=== PATIENT | male | born 1975 | race Caucasian/White ===

== ENCOUNTER 2017-10-10 14:55 | Inpatient (IN) | payer OTHER, SELFPAY ==
[2017-10-10] VITALS (20 sets, daily range): BP systolic 137–161; BP diastolic 88–100; PULSE 93–108; RESP 12–33; TEMP 37.8–39.6; O2SAT 87–95; BMI 39.0; BMI 37.3; BMI 37.4
--- NOTE | 2017-10-10 15:08 | RAD_ITS ---
STUDY: X-RAY CHEST REASON FOR EXAM: Male, 41 years old. Tachypnea TECHNIQUE: Single AP portable view of the chest. COMPARISON: None. FINDINGS: There is poor inspiratory effort with vascular crowding. The lungs are clear and expanded. There is no demonstrated pleural abnormality. There is borderline cardiomegaly. Normal mediastinum and ela. Normal visualized pulmonary arteries. Normal visualized aortic arch and descending thoracic aorta. Normal visualized thoracic spine. Normal visualized ribs, clavicles, and shoulders. There is no demonstrated abnormality of the visualized soft tissue structures of the upper abdomen. RAD/Chest 1 View (Portable) IMPRESSION: Normal x-ray examination of the chest. Electronically Signed: Jaime Amaya MD at 16:45 EST , Service support ,
--- NOTE | 2017-10-10 15:08 | EKG12_ITS ---
Test Reason : CP Blood Pressure : / mmHG Vent. Rate : 114 BPM Atrial Rate : 114 BPM P-R Int : 176 ms QRS Dur : 104 ms QT Int : 338 ms P-R-T Axes : 035 -13 044 degrees QTc Int : 465 ms Sinus tachycardia Otherwise normal ECG Confirmed by LEEANNE SINGH ([id number]), newspaper copy editor CHEIKH BUSTILLO ([id number]) on 10/12/2017 2:05:13 PM Referred By: FAREED Confirmed By:LEEANNE SINGH
[2017-10-10] MEDS: Acetaminophen 325 MG Tablet 650 MG PO ×2 (15:15→22:17)
[2017-10-10] MEDS: 0.9% Normal Saline 1,000 ML 250 ML IV (15:16)
[2017-10-10 15:22] LABS: Absolute Lymphocyte Count 0.78 X10^3/ul (0.83-4.51); Basophil# 0.02 X10^3/uL; Basophil% 0.2 % (0-1); Hematocrit 41.6 % (40-54); Hemoglobin 14.2 g/dl (13.0-16.5); Lymphocyte # 0.78 X10^3/ul (4.0); Lymphocyte % 7.6 % (19-41); Mean Corp Hgb Conc 34.1 g/gl (32-36); Mean Corpuscular Hgb 31.2 pg (27.0-32.0); Mean Corpuscular Volume 91.4 fL (80-94); Mean Platelet Vol. 11.9 fl (6.2-12.0); Monocyte# 0.47 X10^3/uL; Monocyte% 4.6 % (0-10); Neutrophil # 8.95 X10^3/uL (2.7-7.7); Neutrophil % 87.5 % (47-70); Platelet Count 197 K/mm3 (150-450); RBC Distribution Width CV 12.5 % (11.6-14.6); RBC Distribution Width SD 41.8 fl (35.1-43.9); Red Blood Count 4.55 M/mm3 (4.6-6.2); White Blood Count 10.2 K/mm3 (4.4-11.0)
--- NOTE | 2017-10-10 15:22 | ED.RN ---
NO OLD EKG
--- NOTE | 2017-10-10 15:25 | ED.VISSUMM ---
- ER Visit Summary Date of Service: 10/10/17 Chief Complaint: From Dr. Humberto Dos Santos's office because of tachycardia, tachypnea, fever and pulse ox 86% History of Present Illness: The patient is a 41 M who was seen yesterday at [facility] and diagnosed with left lower lobe pneumonia. He was given a dose of an IV antibiotic and placed on doxycycline. He reports he feels ill, weak, fatigued and not breathing well. He does complain of global headache. He denies photophobia sips of his neck. Denies earache, rhinorrhea, postnasal drainage or sore throat. Does complain of dry mouth. Does complain of thirst, orthostatic symptoms and decreased urine output with darker colored urine. He denies history of biliary disease or exposure to hepatitis. He reports left-sided chest pain with coughing and reports his cough is nonproductive. He has no history of PE or DVT. He denies any leg pain, swelling or discoloration. He does report nausea without vomiting or diarrhea. He denies rash. He denies any paresthesia, anesthesia or motor weakness. Her review of records he has a history of GERD, hiatal hernia, migraine headaches, depression, sleep apnea and allergic rhinitis. Past surgical history is remarkable for appendectomy and tonsillectomy. He did have a colonoscopy and revealed diverticulosis. Physical Examination: Patient's vitals remarkable for heart rate of 106, respiratory rates documented 24 however on my exam he is breathing 36 times a minute and has paradoxical breathing. Pulse ox is 90% on 6 L by nasal cannula and temperature is 102.7. He appears ill and pale. Capillary refill is delayed. HEENT exam is remarkable for dry mucosa. Heart is rapid and regular without murmur, gallop or rub. Breath sounds are diminished bilaterally with egophony noted left side. Abdomen is soft nontender. There is no CVA tenderness noted. He does have palpable distal pulses upper and lower extremity. He is not alert, but he is oriented. Motor sensory are intact. Cranial 2 through 12 are intact. Test Results: EKG reveals a sinus tachycardia rate of 114, otherwise normal. Portable chest x-ray reveals a left lower lobe infiltrate with a small effusion. White count is normal at 10.2 with 88% segs. Coags are normal. UA is unremarkable. Lactate is normal at 1.3. Blood gas on 6 L by nasal cannula reveals a pH of 7.46, P CO2 28, PaO2 58 bicarb 19.6 with a base excess of -4. This represents a metabolic acidosis with a respiratory compensation and an increased AA gradient. Emergency Department Course and Treatment: Abscess workup was undertaken. A blood gas was obtained because of concern for CO2 retention since he has a history obstructive sleep apnea. He was placed on BiPAP since he has paradoxical breathing and reports feeling fatigued and having difficulty breathing. Antibiotics were ordered and specifically Rocephin and azithromycin. Rapid influenza screen was obtained as well. Treatment Plan: Patient was treated with antibiotics. Because he had paradoxical breathing and complained of fatigue BiPAP was started. He from a respiratory standpoint has improved. Disposition: The hospitalist has been paged for admission to ICU Impression: 1. Community-acquired pneumonia, left lower lobe 2. Respiratory failure with hypoxia 3. Metabolic acidosis 4. Severe sepsis 5. History of obstructive sleep apnea 6. History of GERD/hiatal hernia 7. History of allergic rhinitis 8. Sinus tachycardia documented on monitor and EKG 9. Critical care time 34 minutes This note was generated with [employer] dictation software. It may contain incorrect words, spelling, and punctuation that were not noted in review of the chart prior to signing ED Disposition - Plan for ED Patient: Chief Complaint: Chest Pain Referrals: Humberto Dos Santos MD [Primary Care Provider] -
[2017-10-10 15:26] LABS: POSITIVE COUNT NO; POSITIVE DIFFERENTIAL NO; POSITIVE MORPHOLOGY NO
--- NOTE | 2017-10-10 15:29 | ED.DCSUM_ITS ---
- ER Visit Summary Date of Service: 10/10/17 Chief Complaint: From Dr. Humberto Dos Santos's office because of tachycardia, tachypnea, fever and pulse ox 86% History of Present Illness: The patient is a 41 M who was seen yesterday at [facility] and diagnosed with left lower lobe pneumonia. He was given a dose of an IV antibiotic and placed on doxycycline. He reports he feels ill, weak, fatigued and not breathing well. He does complain of global headache. He denies photophobia sips of his neck. Denies earache, rhinorrhea, postnasal drainage or sore throat. Does complain of dry mouth. Does complain of thirst, orthostatic symptoms and decreased urine output with darker colored urine. He denies history of biliary disease or exposure to hepatitis. He reports left- sided chest pain with coughing and reports his cough is nonproductive. He has no history of PE or DVT. He denies any leg pain, swelling or discoloration. He does report nausea without vomiting or diarrhea. He denies rash. He denies any paresthesia, anesthesia or motor weakness. Her review of records he has a history of GERD, hiatal hernia, migraine headaches, depression, sleep apnea and allergic rhinitis. Past surgical history is remarkable for appendectomy and tonsillectomy. He did have a colonoscopy and revealed diverticulosis. Physical Examination: Patient's vitals remarkable for heart rate of 106, respiratory rates documented 24 however on my exam he is breathing 36 times a minute and has paradoxical breathing. Pulse ox is 90% on 6 L by nasal cannula and temperature is 102.7. He appears ill and pale. Capillary refill is delayed. HEENT exam is remarkable for dry mucosa. Heart is rapid and regular without murmur, gallop or rub. Breath sounds are diminished bilaterally with egophony noted left side. Abdomen is soft nontender. There is no CVA tenderness noted. He does have palpable distal pulses upper and lower extremity. He is not alert, but he is oriented. Motor sensory are intact. Cranial 2 through 12 are intact. Test Results: EKG reveals a sinus tachycardia rate of 114, otherwise normal. Portable chest x-ray reveals a left lower lobe infiltrate with a small effusion. White count is normal at 10.2 with 88% segs. Coags are normal. UA is unremarkable. Lactate is normal at 1.3. Blood gas on 6 L by nasal cannula reveals a pH of 7.46, P CO2 28, PaO2 58 bicarb 19.6 with a base excess of -4. This represents a metabolic acidosis with a respiratory compensation and an increased AA gradient. Emergency Department Course and Treatment: Abscess workup was undertaken. A blood gas was obtained because of concern for CO2 retention since he has a history obstructive sleep apnea. He was placed on BiPAP since he has paradoxical breathing and reports feeling fatigued and having difficulty breathing. Antibiotics were ordered and specifically Rocephin and azithromycin. Rapid influenza screen was obtained as well. Treatment Plan: Patient was treated with antibiotics. Because he had paradoxical breathing and complained of fatigue BiPAP was started. He from a respiratory standpoint has improved. Disposition: The hospitalist has been paged for admission to ICU Impression: 1. Community-acquired pneumonia, left lower lobe 2. Respiratory failure with hypoxia 3. Metabolic acidosis 4. Severe sepsis 5. History of obstructive sleep apnea 6. History of GERD/hiatal hernia 7. History of allergic rhinitis 8. Sinus tachycardia documented on monitor and EKG 9. Critical care time 34 minutes This note was generated with [employer] dictation software. It may contain incorrect words, spelling, and punctuation that were not noted in review of the chart prior to signing ED Disposition - Plan for ED Patient: Chief Complaint: Chest Pain Referrals: Humberto Dos Santos MD [Primary Care Provider] -
[2017-10-10 15:33] LABS: Lactic Acid 1.3 mmol/L (0.4-2.0)
[2017-10-10 15:36] LABS: Allen Test POS; Base Excess -4 mmol/L (-2 to +2); Bicarbonate 19.6 mmol/L (22-26); Blood Gas Specimen Type ART; O2 Delivery Device Nasal Can; PO2 58 mmHG (75-100); SITE R Radial; SO2 91 % (95-99); Time Given 1520; Total Carbon Dioxide 20 mmol/L; pCO2 28.1 mmHg (35-45); pH 7.45 (7.35-7.45)
[2017-10-10 15:39] LABS: AST(SGOT) 37 U/L (15-37); Alanine Aminotransfer ALT/SGPT 30 U/L (12-78); Albumin, Serum 3.7 g/dL (3.4-5.0); Alkaline Phosphatase 96 U/L (45-117); Anion Gap 10 (5-15); BUN 12 mg/dL (7-18); Calcium,Total 8.7 mg/dL (8.5-10.1); Chloride 103 mmol/L (98-107); EST Glomerular Filtration Rate 87 mL/min (>60); Est Glom Filt Rate - Afr Amer 105 mL/min (>60); Estimated Creatinine Clearance 111.88 ml/min; Globulin 3.7 g/dL (2.2-4.2); Glucose 152 mg/dL (70-110); Potassium 3.9 mmol/L (3.5-5.1); Protein, Total 7.4 g/dL (6.4-8.2); Sodium Level 135 mmol/L (136-145)
[2017-10-10 15:53] LABS: Bacteria 0 SEEN /hpf (None Seen); Mucous, Urine 0 SEEN /hpf (<or=2+); Squamous Epithelial Cells - UA 0 SEEN /hpf (0-5); White Blood Cells 0 SEEN /hpf (0-5)
[2017-10-10 16:04] LABS: Color, Urine Yellow (Yellow); Glucose, Dipstick Normal (Normal); Ketone-Dipstick Negative (Negative); Leukocyte Esterase-Dipstick 25 /ul (Negative); Nitrite-Dipstick Negative (Negative); Occult Blood-Urine 10 /ul (Negative); Protein-Dipstick 30 mg/dl (Negative); Urine Bilirubin Dipstick Negative (Negative); Urine Clarity Clear (Clear); Urine Urobilinogen 1 mg/dl (Normal)
[2017-10-10 16:22] LABS: International Normalized Ratio 1.2; Prothrombin Time (Protime)PT. 14.5 SECONDS (11.7-14.9)
[2017-10-10 16:23] LABS: Red Blood Cells-Urine 0-5 SEEN /hpf (0-5)
--- NOTE | 2017-10-10 17:27 | HP.PCM_ITS ---
Problem List (1) MIKE (obstructive sleep apnea) Status: Chronic Comment: Recent sleep study, new CPAP machine on order. (2) HLD (hyperlipidemia) Status: Chronic Qualifiers: Hyperlipidemia type: unspecified Qualified Code(s): E78.5 - Hyperlipidemia , unspecified (3) Obesity (BMI 30-39.9) Status: Chronic (4) Diabetes mellitus, type II Status: Chronic Qualifiers: Diabetes mellitus complication status: without complication Diabetes mellitus long term care administrator insulin use: without long term care administrator use Qualified Code(s): E11.9 - Type 2 diabetes mellitus without complications (5) Anxiety and depression Status: Chronic History of Present Illness Date of Admission: 10/10/17 Chief Complaint: Dyspnea, cough, fever, chills The patient is a 41 y/o M w/ PMHx: MIKE, HLD, Obesity, Diabetes mellitus type II , Anxiety and Depression who presents to the [facility] ED on 10/10/17 w/ history of ongoing dyspnea, not markedly productive cough, fever, chills, arthralgias and myalgias w/ nausea without emesis x 3 days. He was evaluated the evening prior in [place] as his symptoms worsened and from patient/family report was treated for PNA, administered IV abx there and discharged to home on oral doxycycline w / 1 dose taken on 10/10/17 AM and noted to have oxygenation status 89% on RA but notes this was only tested at rest. He now re-presents to the [facility] ED as he has continued to worsen and become more short of breath with accessory muscle usage , increased RR. In the ED work-up included T 103.2, HR 90s, BP 151/94-->137/94, RR 20-30s, 94% on BIPAP which was initiated upon ED presentation given severity of appearance/acute respiratory failure, CBC w/ WBC 10.2, Hgb 14.2, Plts 197 with L shift, coags not marked, ABG w/ Bicarb 19.6, O2 saturation 91, pCO2 28.1 , pO2 58, 6L NC, CMP Na 135, Glucose 152, UA not marked aside evidence dehydration, CXR without marked findings, examination in the ED with concern for LLL influenza. In the ED patient administered rocephin, azithromycin, tylenol, NS. Dr. Lenz, ICU physician contacted regarding patient admission to the ICU. Past Medical History Past Medical History (Chronic Problems): Chronic Problems MIKE (obstructive sleep apnea) (Chronic) Recent sleep study, new CPAP machine on order. HLD (hyperlipidemia) (Chronic) Obesity (BMI 30-39.9) (Chronic) Diabetes mellitus, type II (Chronic) Anxiety and depression (Chronic) Allergies metoclopramide [From Reglan] Allergy (Verified 10/10/17 15:01) Unknown sertraline [From Zoloft] Allergy (Verified 10/10/17 15:01) Unknown topiramate [From Topamax] Allergy (Verified 10/10/17 15:01) Unknown Home Medications: Ambulatory Orders Medication Instructions Recorded Esomeprazole Mag Trihydrate 40 mg PO DAILY 10/10/17 [Nexium] Fenofibrate [Lipofen] 54 mg PO DAILY 10/10/17 Fluoxetine [Prozac] 10 mg PO DAILY 10/10/17 Fluticasone 0.05% [Flonase Nasal 1 spray NARES DAILY 10/10/17 [place]] Metformin HCl [Glucophage] 500 mg PO DAILY 10/10/17 Multivitamin [Multiple Vitamins] 1 each PO DAILY 10/10/17 Surgical History: appendectomy, tonsillectomy Psychiatric History: Anxiety, Depression Lives: Spouse/ Significant Other Smoking Status: Never smoker Tobacco Use: Non-smoker Alcohol: None Drugs: None - *Family History Maternal History Items: - - Maternal family history of heart disease, coronary disease with earliest heart attack at age 50. Paternal History Items: - - Father with history of colon cancer as well as heart disease with history of VT. Review of Systems Constitutional: Reports: Anorexia, Chills, Fever, Malaise, Weakness, Fatigue. Denies: Weight Change HEENT: Denies: Head Aches, Sinus Congestion, Sinus Drainage Cardiovascular: Denies: Chest Pain, Palpitations Respiratory: Reports: Cough, Shortness of Breath, Shortness of breath at rest, Shortness of breath upon exertion, Sputum production Gastrointestinal: Reports: Nausea. Denies: Abdominal Pain, Vomiting Genitourinary: Denies: Dysuria Musculoskeletal: Reports: Joint Pain, Muscle pain. Denies: Joint Tenderness Skin: Denies: Rash, Wounds Neurological: Denies: Numbness, Tingling, Focal weakness Psychiatric: Reports: Anxiety, Depression. Denies: Homicidal Ideations, Suicidal Ideations Hematologic/ Lymphatic: Denies: Easy Bruising, Easy Bleeding VTE Information - Inpt Only VTE Present on Admission: No VTE Mechan Device Prophylaxis: SCD's VTE Pharm Prophylaxis ordered?: Yes Subjective: Seated upright in the ED bed, BiPAP in place, notes feeling improved since initial ED presentation but still increased RR, accessory muscle usage. Objective: Physical Examination: General: awake, alert, oriented x 3 and cooperative, seated upright in the ED bed, BIPAP in place, still some lesser muscle usage, increased respiratory rate , evident respiratory distress. Skin: normal color, turgor, no icterus, cyanosis. HEENT: AT/NC, EOMI, PERRLA, dry MM, no carotid bruits or JVD noted. Lungs: Diminished breath sounds, greater BL bases, L>R, coarse, > L base, increased RR, accessory muscle usage, BIPAP in place. Heart: Mildly tachycardic with regular rhythm; no gallop, rub audible. Abdomen: soft, obese, NTTP, ND, normal BS, no HSM; however, habitus makes examination difficult. Extremities: no cyanosis, clubbing, or edema. Neurological: patient awake, alert, oriented x 3; cognitive function intact; pupils equally reactive to light and accomodation; cranial nerves II-XII grossly normal, moving all 4 extremities, no focal deficits, strength severely globally decreased given acute presentation. Psychiatric: affect appears flat, fatigued, no acute evidence of depressive or anxiety feelings. - Physical Exam Vital Signs Temp Pulse Resp BP Pulse Ox 102 F H 93 29 H 137/94 H 94 10/10/17 16:34 10/10/17 17:18 10/10/17 17:18 10/10/17 17:18 10/10/17 17:18 Oxygen Flow Rate 6 Oxygen Delivery Method Bi-pap Weight: 304 lb 0.279 oz Body Mass Index (BMI) 39.0 Microbiology Past 72 Hours 10/10/17 15:26 Influenza Types A,B Direct FA (YASMINE) - Final Mucosa - Nose Laboratory Tests Past 24 Hrs 10/10/17 10/10/17 10/10/17 14:56 14:56 14:56 WBC 10.2 RBC 4.55 L Hgb 14.2 Hct 41.6 MCV 91.4 MCH 31.2 MCHC 34.1 RDW 12.5 RDW Differential 41.8 Plt Count 197 MPV 11.9 Immature Gran % (Auto) 0.100 Neut % (Auto) 87.5 H Lymph % (Auto) 7.6 L [place] % (Auto) 4.6 Eos % (Auto) 0.0 Baso % (Auto) 0.2 Absolute Neuts (auto) 9.0 H Absolute Lymphs (auto) 0.78 L Total Counted Not Reportable PT 14.5 INR 1.2 APTT 39.0 H Specimen Type Sample Site pH Bicarbonate Actual POC Total CO2 Base Excess O2 Saturation ABG pCO2 ABG pO2 Trell Test O2 Delivery Device Liter Flow Blood Gas Notified Whom Blood Gas Notified Time Sodium 135 L Potassium 3.9 Chloride 103 Carbon Dioxide 22.0 Anion Gap 10 BUN 12 Creatinine 1.00 Estim Creat Clear Calc 111.88 Est GFR (MDRD) Af Amer 105 Est GFR (MDRD) Non-Af 87 BUN/Creatinine Ratio 12.0 Glucose 152 H Lactic Acid Calcium 8.7 Total Bilirubin 0.60 AST 37 ALT 30 Alkaline Phosphatase 96 Total Protein 7.4 Albumin 3.7 Globulin 3.7 Albumin/Globulin Ratio 1.0 Urine Color Urine Clarity Urine pH Ur Specific [place] Urine Protein Urine Glucose (UA) Urine Ketones Urine Occult Blood Urine Nitrite Urine Bilirubin Urine Urobilinogen Ur Leukocyte Esterase Urine RBC Urine WBC Ur Squamous Epith Cells Urine Bacteria Urine Mucus 10/10/17 10/10/17 10/10/17 14:56 15:29 15:45 WBC RBC Hgb Hct MCV MCH MCHC RDW RDW Differential Plt Count MPV Immature Gran % (Auto) Neut % (Auto) Lymph % (Auto) [place] % (Auto) Eos % (Auto) Baso % (Auto) Absolute Neuts (auto) Absolute Lymphs (auto) Total Counted PT INR APTT Specimen Type ART Sample Site R Radial pH 7.45 Bicarbonate Actual 19.6 L POC Total CO2 20 Base Excess -4 L O2 Saturation 91 L ABG pCO2 28.1 L ABG pO2 58 L Trell Test POS O2 Delivery Device Nasal Can Liter Flow 6.0 Blood Gas Notified Whom ED Blood Gas Notified Time 1520 Sodium Potassium Chloride Carbon Dioxide Anion Gap BUN Creatinine Estim Creat Clear Calc Est GFR (MDRD) Af Amer Est GFR (MDRD) Non-Af BUN/Creatinine Ratio Glucose Lactic Acid 1.3 Calcium Total Bilirubin AST ALT Alkaline Phosphatase Total Protein Albumin Globulin Albumin/Globulin Ratio Urine Color Yellow Urine Clarity Clear Urine pH 6.0 Ur Specific [place] 1.020 Urine Protein 30 H Urine Glucose (UA) Normal Urine Ketones Negative Urine Occult Blood 10 H Urine Nitrite Negative Urine Bilirubin Negative Urine Urobilinogen 1 H Ur Leukocyte Esterase 25 H Urine RBC 0-5 SEEN Urine WBC 0 SEEN Ur Squamous Epith Cells 0 SEEN Urine Bacteria 0 SEEN Urine Mucus 0 SEEN Assessment/Plan The patient is a 41 y/o M w/ PMHx: MIKE, HLD, Obesity, Diabetes mellitus type II , Anxiety and Depression who presents to the [facility] ED on 10/10/17 w/ history of ongoing dyspnea, not markedly productive cough, fever, chills, arthralgias and myalgias w/ nausea without emesis x 3 days. (1) Acute Hypoxic Respiratory Failure secondary to Suspected LLL PNA and Suspected Acute Viral Syndrome: ED evaluation w/ CXR without marked process, but examination concerning LLL PNA, influenza rapid panel negative but concern given presentation for influenza. Will maintain on BIPAP given severity of distress, increased effort which has been helping, transition once able to oxygen supplementation with wean as tolerated to room air, continue ATC duonebs , PRN albuterol, maintained on IV Rocephin and Azithromycin, Tamiflu, HOB, IS parameters w/ pending sputum cultures and urine antigens. Bld cx x 2 obtained in the ED. Will obtain Respiratory Viral Panel given concern for fall negative on the rapid influenza. (2) Diabetes mellitus type II: Hold oral home regimen, ADA diet, accu checks w/ ISS. (3) Morbid Obesity: Weight loss and lifestyle changes encouraged, nutrition consulted. (4) Hyperlipidemia: Hold fenofibrate, restart upon discharge. (5) Anxiety and Depression: Maintain on home prozac regimen. (6) MIKE: Notes recent sleep study testing, planned new CPAP machine, given BIPAP usage, hold on CPAP addition. (7) GERD: Famotidine. (8) DVT Prophylaxis: SCDs, lovenox. Code Visit Inpatient E&M: 92511 Init Hosp L3
[2017-10-10] MEDS: Ipratropium/Albuterol Sulfate 3 ML AMPUL.NEB INHALATION ×2 (19:16→22:18)
[2017-10-10] MEDS: Ondansetron 4 MG/2 ML Vial IV (19:31)
[2017-10-10] MEDS: Oseltamivir Phosphate 75 MG Capsule PO (19:33)
[2017-10-10] MEDS: 0.9% NaCl Peripheral Flush Adult/Peds IV (19:38)
[2017-10-10 20:01] LABS: M R Staph aureus DNA By PCR Negative (Negative); Probe Check PASS; Specimen Processing Control PASS
[2017-10-10] MEDS: guaiFENesin 1,200 MG Tablet 1200 MG PO (22:09)
[2017-10-10] MEDS: Famotidine 20 MG Tablet PO (22:09)
[2017-10-10] MEDS: oxyCODONE 5 MG Tablet PO (22:16)
[2017-10-10] MEDS: 0.9% Normal Saline 1,000 ML 150 ML IV (22:20)
[2017-10-10 22:35] LABS: Bedside Glucose 155 mg/dL (70-110)
[2017-10-11] VITALS (39 sets, daily range): BP systolic 123–188; BP diastolic 68–111; PULSE 67–107; RESP 12–31; TEMP 36.8–40; O2SAT 90–96
[2017-10-11] MEDS: Ipratropium/Albuterol Sulfate 3 ML AMPUL.NEB INHALATION ×5 (03:15→19:17)
[2017-10-11] MEDS: oxyCODONE 5 MG Tablet PO ×5 (03:53→21:04)
[2017-10-11] MEDS: 0.9% Normal Saline 1,000 ML 150 ML IV ×2 (05:01→12:01)
--- NOTE | 2017-10-11 06:40 | CON.PCM_ITS ---
Reason for Consult Date of Consultation: 10/11/17 Reason for Consultation: Acute respiratory failure History of Present Illness: The patient is a 41-year-old male, with a history as outlined below, who presented to the emergency department on October 10 with shortness of breath, tachycardia, fever and hypoxia. The patient reports that the symptoms have been present for approximately 4 days. He also reports associated myalgias. The patient was seen initially in an emergency department in [place], after which time, he was started on antibiotics. The patient followed up with his primary care provider yesterday and was subsequently referred to the emergency department for re-evaluation. The patient does report the presence of a cough which has been productive of purulent sputum. At his baseline, the patient denies requiring supplemental oxygen. He denies a history of COPD or asthma. He does not currently utilize inhalers in his home environment. He does report the presence of a headache currently. On presentation to the emergency department, the patient was noted to be febrile with a temperature of 102.7?F. He was mildly tachycardic but remained hemodynamically stable. The patient was notably hypoxic. Initial laboratory evaluation revealed no evidence of a leukocytosis. INR was within normal limits. Chemistry profile was largely unremarkable. Urinalysis was non concerning for infection. Initial plain film chest x-ray revealed no evidence of an acute cardiopulmonary process. The patient was subsequently started on antibiotics and Tamiflu. Given his tenuous respiratory status, he was also started on BiPAP therapy. The patient was then transferred to the medical intensive care unit for ongoing management. Past Medical History Past Medical History (Chronic Problems): Chronic Problems MIKE (obstructive sleep apnea) (Chronic) Recent sleep study, new CPAP machine on order. HLD (hyperlipidemia) (Chronic) Obesity (BMI 30-39.9) (Chronic) Diabetes mellitus, type II (Chronic) Anxiety and depression (Chronic) Allergies metoclopramide [From Reglan] Allergy (Verified 10/10/17 18:53) weirds me out sertraline [From Zoloft] Allergy (Verified 10/10/17 18:53) sexual side effects topiramate [From Topamax] Allergy (Verified 10/10/17 18:53) Unknown can't remember Home Medications: Ambulatory Orders Medication Instructions Recorded Esomeprazole Mag Trihydrate 40 mg PO DAILY 10/10/17 [Nexium] Fenofibrate [Lipofen] 54 mg PO DAILY 10/10/17 Fluoxetine [Prozac] 10 mg PO DAILY 10/10/17 Fluticasone 0.05% [Flonase Nasal 1 spray NARES DAILY 10/10/17 [place]] Metformin HCl [Glucophage] 500 mg PO DAILY 10/10/17 Multivitamin [Multiple Vitamins] 1 each PO DAILY 10/10/17 Surgical History: appendectomy, tonsillectomy Psychiatric History: Anxiety, Depression Lives: Spouse/ Significant Other Smoking Status: Never smoker Tobacco Use: Non-smoker Alcohol: None Drugs: None - *Family History Maternal History Items: - - Maternal family history of heart disease, coronary disease with earliest heart attack at age 50. Paternal History Items: - - Father with history of colon cancer as well as heart disease with history of AL. Review of Systems Constitutional: Reports: Malaise, Fatigue Eyes: Denies: Blurred vision, Double vision HEENT: Denies: Head Aches, Sinus Congestion, Sinus Drainage Cardiovascular: Denies: Chest Pain, Palpitations Respiratory: Reports: Cough, Shortness of Breath, Sputum production Gastrointestinal: Denies: Abdominal Pain, Nausea, Vomiting Genitourinary: Denies: Dysuria Musculoskeletal: Denies: Joint Pain, Joint Tenderness Skin: Denies: Rash, Wounds Neurological: Denies: Numbness, Tingling, Focal weakness Psychiatric: Denies: Anxiety, Depression, Homicidal Ideations, Suicidal Ideations Hematologic/ Lymphatic: Denies: Easy Bruising, Easy Bleeding Objective: The patient's most recent lab work, culture data and imaging studies have all been personally reviewed. Respiratory viral panel was negative. Strep and urine Legionella antigens were both negative. Blood and urine cultures are currently pending. Sputum culture has yet to be sent. - Physical Exam General: Alert, Cooperative, - - Ill in appearance HEENT: Atraumatic, PERRLA, Normocephalic Oral: No Gingival or Mucosal Lesions/ Ulcerations, Dry Mucosa Neck: Supple, No Nodes, Trachea Midline Lungs: No rhonchi, No wheeze, No rales, Diminished, - - BiPAP currently in place. Cardiovascular: Regular rate, Regular Rhythm, Normal S1, Normal S2, No murmurs Abdomen: Bowel Sounds Present, Soft, Non Tender, Non-Distended, Obese Extremities: No clubbing, No cyanosis, No edema Skin: No rashes, No breakdown Musculoskeletal: No Tenderness to Palpation of Joints or Extremities Lymphatic: No Cervical, Supraclavicular, or Inguinal Adenopathy Neurological: Neuro grossly intact Psych/Mental Status: Flat Affect Vital Signs Temp Pulse Resp BP Pulse Ox 100.2 F H 85 30 H 156/93 H 90 10/11/17 05:00 10/11/17 06:28 10/11/17 06:28 10/11/17 05:00 10/11/17 06:28 Oxygen Flow Rate 4 Oxygen Delivery Method Bi-pap Weight: 299 lb 2.676 oz Body Mass Index (BMI) 37.3 Intake and Output for Last 24 Hours 10/09/17 10/10/17 10/11/17 23:59 23:59 23:59 Intake Total 2377 / 2377 Output Total 225 / 225 200 / 200 Balance -225 / -225 2177 / 2177 Microbiology Past 72 Hours 10/10/17 18:30 Respiratory Panel (PCR) - Final Mucosa - Nasopharyngeal 10/10/17 18:25 Streptococcus pneumoniae Antigen (M - Final Urine, Random 10/10/17 18:25 Legionella Antigen - Final Urine, Random Laboratory Tests Past 24 Hrs 10/10/17 18:35 MRSA (PCR) Negative POC Glucose 10/10/17 22:07 POC Glucose 155 H Clinical Impression(s) from Imaging Studies Chest X-Ray 10/10/17 15:08 IMPRESSION: Normal x-ray examination of the chest. Electronically Signed: Jaime Amaya MD at 16:45 EST , Service support , Assessment/Plan RECOMMENDATIONS: 1. Resend basic labs this morning 2. Obtain repeat plain film chest x-ray 3. Send sputum for culture 4. Continue broad-spectrum antibiotics, pending infectious workup. 5. Okay from my perspective to discontinue Tamiflu. 6. Discontinue morphine. Okay to continue oxycodone. 7. Wean from BiPAP as tolerated. 8. Continue supplemental IV fluids for now to offset insensible losses. 9. Continue appropriate ICU prophylaxis IMPRESSIONS: 1. Acute hypoxemic respiratory failure Although the patient was initially started on treatment for CAP as an outpatient , his most recent plain film chest x-ray was less than impressive for an underlying infiltrate/consolidation. An infectious workup is currently underway. Would plan to continue broad-spectrum antibiotics, pending infectious workup. In addition, will obtain a repeat plain film chest x-ray this morning. If the repeat chest x-ray remains as unimpressive as the first, would then need to consider CT of his chest for further clarification of his hypoxia. The patient's rapid influenza screen and full respiratory viral panel were both negative. Therefore, Tamiflu can be discontinued. 2. Obesity/GERD/anxiety/diabetes/allergic rhinitis Complicates care, management, recovery and prognosis. Continue home medications as indicated. Sliding scale insulin will be utilized in place of his metformin. This note was generated with [employer] dictation software. It may contain incorrect words, spelling, and punctuation that were not noted in checking the note before signing. Code Visit Inpatient E&M: 86257 Init Hosp L3
[2017-10-11 07:01] LABS: Absolute Lymphocyte Count 1.09 X10^3/ul (0.83-4.51); Basophil# 0.01 X10^3/uL; Basophil% 0.1 % (0-1); Hemoglobin 13.2 g/dl (13.0-16.5); Lymphocyte # 1.09 X10^3/ul (4.0); Lymphocyte % 12.8 % (19-41); Mean Corp Hgb Conc 33.8 g/gl (32-36); Mean Corpuscular Hgb 31.4 pg (27.0-32.0); Mean Corpuscular Volume 92.6 fL (80-94); Mean Platelet Vol. 12.5 fl (6.2-12.0); Monocyte# 0.38 X10^3/uL; Monocyte% 4.5 % (0-10); Neutrophil # 7.02 X10^3/uL (2.7-7.7); Neutrophil % 82.4 % (47-70); Platelet Count 205 K/mm3 (150-450); RBC Distribution Width CV 12.8 % (11.6-14.6); Red Blood Count 4.21 M/mm3 (4.6-6.2); White Blood Count 8.5 K/mm3 (4.4-11.0)
[2017-10-11 07:03] LABS: POSITIVE COUNT NO; POSITIVE DIFFERENTIAL NO; POSITIVE MORPHOLOGY NO
--- NOTE | 2017-10-11 07:09 | RAD_ITS ---
STUDY: X-RAY CHEST REASON FOR EXAM: Male, 41 years old. Acute respiratory failure. Flulike syndrome. TECHNIQUE: Single AP portable view of the chest. COMPARISON: Comparison is made with prior examination dated October 10, 2017. FINDINGS: EKG electrodes are seen. Elevation of the right hemidiaphragm. Infiltration in the posterior medial segment of the left lower lobe. Mild increased markings at the right lung base suggestive of atelectasis. There is blunting of the left costophrenic angle. There is mild cardiac enlargement. Normal mediastinum and ela. Normal visualized pulmonary arteries. Normal visualized aortic arch and descending thoracic aorta. Normal visualized thoracic spine. Normal visualized ribs, clavicles, and shoulders. There is no demonstrated abnormality of the visualized soft tissue structures of the upper abdomen. RAD/Chest 1 View (Portable) IMPRESSION: Infiltration in the left lower lobe. There is blunting of the left costophrenic angle. Increased markings at the right lung base. Electronically Signed: Dmitry Murguia MD at 11:26 EST Tel [phone], Service support ,
[2017-10-11 07:19] LABS: ALB/GLOB Ratio 0.9 RATIO (0.9-2.4); AST(SGOT) 34 U/L (15-37); Alanine Aminotransfer ALT/SGPT 29 U/L (12-78); Albumin, Serum 3.1 g/dL (3.4-5.0); Alkaline Phosphatase 77 U/L (45-117); Anion Gap 11 (5-15); BUN 13 mg/dL (7-18); BUN/Creat Ratio 13.4 RATIO (10-20); Chloride 100 mmol/L (98-107); Creatinine, Serum 0.97 mg/dL (0.70-1.30); EST Glomerular Filtration Rate 90 mL/min (>60); Est Glom Filt Rate - Afr Amer 109 mL/min (>60); Estimated Creatinine Clearance 115.34 ml/min; Globulin 3.6 g/dL (2.2-4.2); Glucose 149 mg/dL (70-110); Potassium 3.9 mmol/L (3.5-5.1); Protein, Total 6.7 g/dL (6.4-8.2); Sodium Level 133 mmol/L (136-145)
[2017-10-11] MEDS: Ondansetron 4 MG/2 ML Vial IV (07:47)
[2017-10-11] MEDS: Acetaminophen 325 MG Tablet 650 MG PO ×2 (08:10→17:10)
--- NOTE | 2017-10-11 09:30 | CT_ITS ---
STUDY: CTA CHEST REASON FOR EXAM: Male, 41 years old. Hypoxia. Left lower lobe pneumonia. RADIATION DOSAGE (If Supplied By Facility): CTDIvol = ( 16.72 ) mGy, DLP = ( 751.17 ) mGycm TECHNIQUE: The examination was performed with the intravenous administration of 100 ml of Isovue 370 contrast material. Post-processing of the angiographic images was performed, with multiplanar reformation and 3D reconstruction. Individualized dose optimization techniques were used for this CT. COMPARISON: None. FINDINGS: Normal enhancement of the main pulmonary artery and right and left pulmonary arteries. Normal enhancement of the bilateral peripheral pulmonary arteries. There is no demonstrated pulmonary embolism. Normal thoracic aorta and visualized great vessels. There is no demonstrated aortic dissection. Normal heart and pericardium. Normal mediastinum. Normal hilar regions. Normal visualized trachea and bronchi. Elevation of the right hemidiaphragm. There is evidence of consolidation in both lower lobes with airspace disease. Normal pleura. Normal chest wall structures. Normal osseous structures. Diffuse fatty infiltration of the liver. Findings suggestive of a 1.2 cm adenoma in the crux of the left adrenal gland. CT/CTA Chest W/WO Contrast IMPRESSION: Bibasilar consolidation with airspace disease. Diffuse fatty infiltration of the liver. Electronically Signed: Dmitry Murguia MD at 11:25 EST Tel [phone], Service support ,
--- NOTE | 2017-10-11 09:52 | CASEMGMT ---
See RN CM Assessment Link. DC PLAN: Home on discharge. Per , pt was independent prior to admission. -May need Home oxygen qualification prior to discharge. Will continue to follow and assist with dc planning. Edy LEONARD RN ACM
[2017-10-11] MEDS: Ceftriaxone 1 GM/50 ML BAG IV (11:00)
--- NOTE | 2017-10-11 11:19 | PCM.PN.HOSP ---
Subjective: Patient was seen and examined. Remains on BiPAP and high flow oxygen. Complains of severe headache believed to be related to his migraine. To the patient, he is tried numerous medications for migraine that has no way, he was supposed to follow-up for somebody for chronic headaches in the [facility]. He says his headache is more than 8 out of 10, not nauseous. Denies any chest pain. Still feels very short of breath. Vitals/I&O's: Vital Signs Temp Pulse Resp BP Pulse Ox 99.9 F H 82 16 142/82 H 94 10/11/17 07:00 10/11/17 11:04 10/11/17 11:04 10/11/17 09:00 10/11/17 09:05 Oxygen Flow Rate 4 Oxygen Delivery Method Bi-pap Weight: 135.7 kg Body Mass Index (BMI) 37.3 Intake and Output for Last 24 Hours 10/09/17 10/10/17 10/11/17 23:59 23:59 23:59 Intake Total 2377 / 2377 Output Total 225 / 225 200 / 200 Balance -225 / -225 2177 / 2177 General: Alert, Oriented x3, Cooperative, - - Slightly dyspneic on BiPAP HEENT: Atraumatic, PERRLA, EOMI, Normocephalic Oral: Moist Mucosa Neck: Supple Lungs: Clear to auscultation, Normal air movement, Diminished - At the lung bases Cardiovascular: Regular rate, Regular Rhythm, Normal S1, Normal S2, No murmurs Abdomen: Bowel Sounds Present, Soft, Non Tender, Non-Distended, No Hepato-splenomegaly Extremities: No edema Skin: No rashes, No breakdown Musculoskeletal: No Tenderness to Palpation of Joints or Extremities Neurological: Cranial nerves II-XII grossly intact Psych/Mental Status: Normal Affect, Appropriate Microbiology Past 72 Hours 10/10/17 18:30 Mucosa - Nasopharyngeal Respiratory Panel (PCR) - Final 10/10/17 18:25 Urine, Random Streptococcus pneumoniae Antigen (M - Final 10/10/17 18:25 Urine, Random Legionella Antigen - Final Laboratory Results 10/10/17 18:35: MRSA (PCR) Negative 10/10/17 22:07: POC Glucose 155 H 10/11/17 04:00: WBC 8.5, RBC 4.21 L, Hgb 13.2, Hct 39.0 L, MCV 92.6, MCH 31.4, MCHC 33.8, RDW 12.8, RDW Differential 43.0, Plt Count 205, MPV 12.5 H, Immature Gran % (Auto) 0.200, Neut % (Auto) 82.4 H, Lymph % (Auto) 12.8 L, [place] % (Auto) 4.5, Eos % (Auto) 0.0, Baso % (Auto) 0.1, Absolute Neuts (auto) 7.0, Absolute Lymphs (auto) 1.09, Total Counted Not Reportable 10/11/17 04:00: Sodium 133 L, Potassium 3.9, Chloride 100, Carbon Dioxide 22.0, Anion Gap 11, BUN 13, Creatinine 0.97, Estim Creat Clear Calc 115.34, Est GFR (MDRD) Af Amer 109, Est GFR (MDRD) Non-Af 90, BUN/Creatinine Ratio 13.4, Glucose 149 H, Calcium 8.0 L, Total Bilirubin 0.60, AST 34, ALT 29, Alkaline Phosphatase 77, Total Protein 6.7, Albumin 3.1 L, Globulin 3.6, Albumin/Globulin Ratio 0.9 Current Medications Acetaminophen (Tylenol) 650 mg PO Q6H PRN PRN PRN Reason: Mild Pain (scale 0-3)/T>100.7 Last Admin: 10/11/17 08:10 Dose: 650 mg Al Hydroxide/Mg Hydroxide (Mylanta Ii) 30 ml PO Q6H PRN PRN PRN Reason: Gastric burning Albuterol Sulfate (Ventolin Aerosols) 2.5 mg INHALATION Q2H PRN PRN PRN Reason: SHORTNESS OF BREATH Albuterol/Ipratropium (Duoneb) 3 ml INHALATION Q4H.RT [facility] Last Admin: 10/11/17 11:03 Dose: 3 ml Dextrose (D50w Syringe) 0 gm IV X1 PRN; Protocol PRN Reason: Hypoglycemia Enoxaparin Sodium (Lovenox) 40 mg SC DAILY@1000 SIENA Famotidine (Pepcid) 20 mg PO BID [facility] Last Admin: 10/10/17 22:09 Dose: 20 mg Fluoxetine HCl (Prozac) 10 mg PO DAILY [facility] Glucagon () 1 mg IM .X1 PRN PRN Reason: Hypoglycemia Guaifenesin (Mucinex) 1,200 mg PO BID [facility] Last Admin: 10/10/17 22:09 Dose: 1,200 mg Hydralazine HCl (Apresoline) 10 mg IV Q4H PRN PRN PRN Reason: SBP > 160 Last Admin: 10/11/17 08:10 Dose: 10 mg Sodium Chloride () 1,000 mls @ 150 mls/hr IV .Q6H40M [facility] Last Admin: 10/11/17 08:11 Dose: Not Given Azithromycin 500 mg/ Dextrose 255 mls @ 250 mls/hr IV Q24 [facility] Stop: 10/13/17 11:02 Ceftriaxone Sodium (Rocephin) 1 gm in 50 mls @ 100 mls/hr IV Q24H [facility] Insulin Aspart (Novolog Flexpen (Bkc)) 0 units SC ACHS [facility] PRN Reason: Protocol Last Admin: 10/11/17 07:49 Dose: Not Given Magnesium Hydroxide (Milk Of Magnesia) 30 ml PO DAILY PRN PRN PRN Reason: Constipation Ondansetron HCl (Zofran) 4 mg IV Q8H PRN PRN PRN Reason: NAUSEA Last Admin: 10/11/17 07:47 Dose: 4 mg Oxycodone HCl (Oxyir) 5 mg PO Q4H PRN PRN PRN Reason: Moderate Pain (pain scale 4-5) Last Admin: 10/11/17 07:47 Dose: 5 mg Sodium Chloride () 5 - 30 ml IV UD PRN PRN Reason: SALINE FLUSH Last Admin: 10/10/17 19:38 Dose: 10 ml Assessment/Plan 41-year-old male with past medical history of obesity, MIKE, type 2 DM, chronic migraine headaches comes in with complaints of shortness of breath with associated cough, fever and chills ongoing for 3 days. Patient was recently diagnosed with pneumonia and treated with IV antibiotics in [facility], and discharged on oral doxycycline. He came into the ED when he was very short of breath and found to have SPO2 of 89% on room air. Patient has since been admitted to the ICU and managed on BiPAP. 1. Acute hypoxic respiratory failure secondary to bilateral lower lobe pneumonia, remains in ICU on BiPAP, Urine streptococcal and Legionella antigen is negative. Influenza negative. Respiratory panel negative. On Ceftriaxone and azithromycin. 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 2. Acute migraine in a patient with history of chronic headaches, history of having tried several medications with no effect, would start patient on a one-time dose of sumatriptan 6 mg subcu as well as metoprolol 10 mg IV ?1, will follow up to see if that helps with the headaches. 3. Type 2 diabetes, blood sugars are stable, metformin on hold, will continue to monitor blood sugars with insulin sliding scale 4. Morbid Obesity: weight loss and lifestyle changes encouraged 5. Dyslipidemia: fenofibrate on hold, will resume at discharge 6. Diabetes/depression, on Prozac 7. MIKE 8. GERD, on famotidine 9. DVT prophylaxis on Lovenox Code Visit Inpatient E&M: 17363 Subs Hosp L3
[2017-10-11] MEDS: Famotidine 20 MG Tablet PO ×2 (11:58→21:04)
[2017-10-11] MEDS: FLUoxetine 10 MG Capsule PO (11:58)
[2017-10-11] MEDS: guaiFENesin 1,200 MG Tablet 1200 MG PO ×2 (11:58→21:05)
[2017-10-11] MEDS: Enoxaparin 40 MG/0.4 ML Syringe SC (11:59)
[2017-10-11 12:11] LABS: Bedside Glucose 190 mg/dL (70-110)
[2017-10-11] MEDS: SUMAtriptan 6 MG/0.5 ML Vial SC (16:18)
[2017-10-11] MEDS: BENZOCAINE/MENTHOL 1 LOZENGE MUCOUS MEM (16:20)
[2017-10-11 18:10] LABS: Bedside Glucose 153 mg/dL (70-110)
[2017-10-11] MEDS: 0.9% Normal Saline 1,000 ML 100 ML IV (21:05)
[2017-10-11] MEDS: 0.9% NaCl Peripheral Flush Adult/Peds IV (21:05)
[2017-10-11 21:21] LABS: Bedside Glucose 176 mg/dL (70-110)
[2017-10-12] VITALS (23 sets, daily range): BP systolic 115–145; BP diastolic 67–87; PULSE 61–84; RESP 16–22; TEMP 36.7–37.8; O2SAT 92–97
[2017-10-12] MEDS: Ipratropium/Albuterol Sulfate 3 ML AMPUL.NEB INHALATION ×7 (00:31→22:31)
[2017-10-12] MEDS: oxyCODONE 5 MG Tablet PO ×4 (01:59→21:22)
[2017-10-12] MEDS: Acetaminophen 325 MG Tablet 650 MG PO ×3 (01:59→21:22)
[2017-10-12 04:29] LABS: Absolute Lymphocyte Count 1.34 X10^3/ul (0.83-4.51); Absolute Neutrophil Count 5.4 X10^3/uL (2.0-7.7); Basophil# 0.01 X10^3/uL; Basophil% 0.1 % (0-1); Eosinophil# 0.03 X10^3/uL; Eosinophils% 0.4 % (0-5); Hematocrit 34.8 % (40-54); Lymphocyte # 1.34 X10^3/ul (4.0); Lymphocyte % 18.6 % (19-41); Mean Corp Hgb Conc 34.5 g/gl (32-36); Mean Corpuscular Hgb 31.6 pg (27.0-32.0); Mean Corpuscular Volume 91.6 fL (80-94); Mean Platelet Vol. 11.6 fl (6.2-12.0); Monocyte# 0.38 X10^3/uL; Monocyte% 5.3 % (0-10); Neutrophil # 5.42 X10^3/uL (2.7-7.7); Neutrophil % 75.5 % (47-70); Platelet Count 205 K/mm3 (150-450); RBC Distribution Width CV 12.3 % (11.6-14.6); RBC Distribution Width SD 40.2 fl (35.1-43.9); White Blood Count 7.2 K/mm3 (4.4-11.0)
[2017-10-12 04:38] LABS: POSITIVE COUNT NO; POSITIVE DIFFERENTIAL NO; POSITIVE MORPHOLOGY NO
[2017-10-12 04:47] LABS: Anion Gap 7 (5-15); BUN 14 mg/dL (7-18); BUN/Creat Ratio 17.9 RATIO (10-20); Chloride 99 mmol/L (98-107); Creatinine, Serum 0.78 mg/dL (0.70-1.30); EST Glomerular Filtration Rate 115 mL/min (>60); Est Glom Filt Rate - Afr Amer 139 mL/min (>60); Estimated Creatinine Clearance 143.44 ml/min; Glucose 152 mg/dL (70-110); Potassium 3.6 mmol/L (3.5-5.1); Sodium Level 133 mmol/L (136-145)
--- NOTE | 2017-10-12 06:52 | PN_ITS ---
Subjective: The patient was seen and examined at the bedside this morning. Events from the last 24 hours have been reviewed. The patient is currently afebrile, hemodynamically stable and maintaining appropriate oxygen saturations on 4 L via nasal cannula. The patient reported to nursing staff that he felt as if the BiPAP was contributing to his migraine headaches. The patient is currently 4.7 L positive on the admission. The patient continues to report generalized malaise and fatigue. Objective: The patient's most recent lab work, culture data and imaging studies have all been personally reviewed. Respiratory Gram stain revealed 3+ white blood cells , 2+ gram-negative rods and 2+ gram-positive cocci. Respiratory viral panel along with strep and urine Legionella antigens have all been negative. Blood and urine cultures are currently pending. CTA chest completed yesterday revealed no evidence of PE, but did demonstrate bibasilar consolidations. General: Alert, Cooperative, No apparent distress HEENT: Atraumatic, PERRLA, Normocephalic Oral: No Gingival or Mucosal Lesions/ Ulcerations, Dry Mucosa Neck: Supple, No Nodes, Trachea Midline Lungs: No rhonchi, No wheeze, No rales, Diminished Cardiovascular: Regular rate, Regular Rhythm, Normal S1, Normal S2, No murmurs Abdomen: Bowel Sounds Present, Soft, Non Tender, Obese Extremities: No clubbing, No cyanosis, No edema Skin: No rashes, No breakdown Musculoskeletal: No Tenderness to Palpation of Joints or Extremities, No Muscle Wasting Lymphatic: No Cervical, Supraclavicular, or Inguinal Adenopathy Neurological: Neuro grossly intact Psych/Mental Status: Flat Affect Vital Signs Temp Pulse Resp BP Pulse Ox 98.0 F 76 18 145/83 H 93 10/12/17 04:00 10/12/17 06:00 10/12/17 06:00 10/12/17 06:00 10/12/17 06:00 Oxygen Flow Rate 5 Oxygen Delivery Method Nasal Cannula Weight: 299 lb 6.204 oz Body Mass Index (BMI) 37.3 Intake and Output for Last 24 Hours 10/10/17 10/11/17 10/12/17 23:59 23:59 23:59 Intake Total 5465 / 5465 1044 / 1044 Output Total 225 / 225 1145 / 1145 400 / 400 Balance -225 / -225 4320 / 4320 644 / 644 Labs (Last 48 Hours) 10/10/17 10/10/17 10/11/17 18:35 22:07 04:00 WBC 8.5 RBC 4.21 L Hgb 13.2 Hct 39.0 L MCV 92.6 MCH 31.4 MCHC 33.8 RDW 12.8 RDW Differential 43.0 Plt Count 205 MPV 12.5 H Immature Gran % (Auto) 0.200 Neut % (Auto) 82.4 H Lymph % (Auto) 12.8 L [place] % (Auto) 4.5 Eos % (Auto) 0.0 Baso % (Auto) 0.1 Absolute Neuts (auto) 7.0 Absolute Lymphs (auto) 1.09 Total Counted Not Reportable Sodium Potassium Chloride Carbon Dioxide Anion Gap BUN Creatinine Estim Creat Clear Calc Est GFR (MDRD) Af Amer Est GFR (MDRD) Non-Af BUN/Creatinine Ratio Glucose Calcium Total Bilirubin AST ALT Alkaline Phosphatase Total Protein Albumin Globulin Albumin/Globulin Ratio MRSA (PCR) Negative POC Glucose 155 H 10/11/17 10/11/17 10/11/17 04:00 12:08 18:04 WBC RBC Hgb Hct MCV MCH MCHC RDW RDW Differential Plt Count MPV Immature Gran % (Auto) Neut % (Auto) Lymph % (Auto) [place] % (Auto) Eos % (Auto) Baso % (Auto) Absolute Neuts (auto) Absolute Lymphs (auto) Total Counted Sodium 133 L Potassium 3.9 Chloride 100 Carbon Dioxide 22.0 Anion Gap 11 BUN 13 Creatinine 0.97 Estim Creat Clear Calc 115.34 Est GFR (MDRD) Af Amer 109 Est GFR (MDRD) Non-Af 90 BUN/Creatinine Ratio 13.4 Glucose 149 H Calcium 8.0 L Total Bilirubin 0.60 AST 34 ALT 29 Alkaline Phosphatase 77 Total Protein 6.7 Albumin 3.1 L Globulin 3.6 Albumin/Globulin Ratio 0.9 MRSA (PCR) POC Glucose 190 H 153 H 10/11/17 10/12/17 10/12/17 21:11 04:05 04:05 WBC 7.2 RBC 3.80 L Hgb 12.0 L Hct 34.8 L MCV 91.6 MCH 31.6 MCHC 34.5 RDW 12.3 RDW Differential 40.2 Plt Count 205 MPV 11.6 Immature Gran % (Auto) 0.100 Neut % (Auto) 75.5 H Lymph % (Auto) 18.6 L [place] % (Auto) 5.3 Eos % (Auto) 0.4 Baso % (Auto) 0.1 Absolute Neuts (auto) 5.4 Absolute Lymphs (auto) 1.34 Total Counted Not Reportable Sodium 133 L Potassium 3.6 Chloride 99 Carbon Dioxide 27.0 Anion Gap 7 BUN 14 Creatinine 0.78 Estim Creat Clear Calc 143.44 Est GFR (MDRD) Af Amer 139 Est GFR (MDRD) Non-Af 115 BUN/Creatinine Ratio 17.9 Glucose 152 H Calcium 8.0 L Total Bilirubin AST ALT Alkaline Phosphatase Total Protein Albumin Globulin Albumin/Globulin Ratio MRSA (PCR) POC Glucose 176 H Microbiology 10/11/17 09:45 Sputum, Expectorated/Coughed Gram Stain - Final 10/10/17 18:30 Mucosa - Nasopharyngeal Respiratory Panel (PCR) - Final 10/10/17 18:25 Urine, Random Streptococcus pneumoniae Antigen (M - Final 10/10/17 18:25 Urine, Random Legionella Antigen - Final Clinical Impression(s) from Imaging Studies Chest X-Ray 10/10/17 15:08 IMPRESSION: Normal x-ray examination of the chest. Electronically Signed: Jaime Amaya MD at 16:45 EST , Service support , Chest X-Ray 10/11/17 07:09 IMPRESSION: Infiltration in the left lower lobe. There is blunting of the left costophrenic angle. Increased markings at the right lung base. Electronically Signed: Dmitry Murguia MD at 11:26 EST Tel [phone], Service support , Chest CTA 10/11/17 09:30 IMPRESSION: Bibasilar consolidation with airspace disease. Diffuse fatty infiltration of the liver. Electronically Signed: Dmitry Murguia MD at 11:25 EST Tel [phone], Service support , Assessment/Plan RECOMMENDATIONS: 1. Continue antibiotics, pending culture results. 2. Continue BiPAP utilization on an as-needed basis. 3. Continue oxycodone for pain 4. Discontinue supplemental IV fluids 5. Wean supplemental oxygen to maintain saturations at or above 90% 6. Encourage incentive spirometer use and mobilize patient as tolerated. 7. Continue appropriate ICU prophylaxis IMPRESSIONS: 1. Acute hypoxemic respiratory failure secondary to community-acquired pneumonia Improving clinically. The patient is no longer BiPAP dependent. Would plan to continue to wean supplemental oxygen to maintain saturations at or above 90%. Continue current antimicrobial regimen, pending finalized culture results. Encourage incentive spirometer use and mobilize patient as tolerated. CTA chest was personally reviewed and showed no evidence for PE, but did confirm the presence of bibasilar consolidations. 2. Obesity/GERD/anxiety/diabetes/allergic rhinitis Complicates care, management, recovery and prognosis. Continue home medications as indicated. Sliding scale insulin will be utilized in place of his metformin. This note was generated with [employer] dictation software. It may contain incorrect words, spelling, and punctuation that were not noted in checking the note before signing. Code Visit Inpatient E&M: 67770 Subs Hosp L3
[2017-10-12] MEDS: 0.9% Normal Saline 1,000 ML 100 ML IV (07:18)
--- NOTE | 2017-10-12 08:05 | PCM.PN.HOSP ---
Vitals/I&O's: Vital Signs Temp Pulse Resp BP Pulse Ox 98.0 F 76 18 145/83 H 93 10/12/17 04:00 10/12/17 06:00 10/12/17 06:00 10/12/17 06:00 10/12/17 06:00 Oxygen Flow Rate 5 Oxygen Delivery Method Nasal Cannula Weight: 135.8 kg Body Mass Index (BMI) 37.3 Intake and Output for Last 24 Hours 10/10/17 10/11/17 10/12/17 23:59 23:59 23:59 Intake Total 5465 / 5465 1044 / 1044 Output Total 225 / 225 1145 / 1145 400 / 400 Balance -225 / -225 4320 / 4320 644 / 644 Microbiology Past 72 Hours 10/11/17 09:45 Sputum, Expectorated/Coughed Gram Stain - Final 10/10/17 18:30 Mucosa - Nasopharyngeal Respiratory Panel (PCR) - Final 10/10/17 18:25 Urine, Random Streptococcus pneumoniae Antigen (M - Final 10/10/17 18:25 Urine, Random Legionella Antigen - Final Laboratory Results 10/11/17 12:08: POC Glucose 190 H 10/11/17 18:04: POC Glucose 153 H 10/11/17 21:11: POC Glucose 176 H 10/12/17 04:05: WBC 7.2, RBC 3.80 L, Hgb 12.0 L, Hct 34.8 L, MCV 91.6, MCH 31.6, MCHC 34.5, RDW 12.3, RDW Differential 40.2, Plt Count 205, MPV 11.6, Immature Gran % (Auto) 0.100, Neut % (Auto) 75.5 H, Lymph % (Auto) 18.6 L, [place] % (Auto) 5.3, Eos % (Auto) 0.4, Baso % (Auto) 0.1, Absolute Neuts (auto) 5.4, Absolute Lymphs (auto) 1.34, Total Counted Not Reportable 10/12/17 04:05: Sodium 133 L, Potassium 3.6, Chloride 99, Carbon Dioxide 27.0, Anion Gap 7, BUN 14, Creatinine 0.78, Estim Creat Clear Calc 143.44, Est GFR (MDRD) Af Amer 139, Est GFR (MDRD) Non-Af 115, BUN/Creatinine Ratio 17.9, Glucose 152 H, Calcium 8.0 L Current Medications Acetaminophen (Tylenol) 650 mg PO Q6H PRN PRN PRN Reason: Mild Pain (scale 0-3)/T>100.7 Last Admin: 10/12/17 01:59 Dose: 650 mg Al Hydroxide/Mg Hydroxide (Mylanta Ii) 30 ml PO Q6H PRN PRN PRN Reason: Gastric burning Albuterol Sulfate (Ventolin Aerosols) 2.5 mg INHALATION Q2H PRN PRN PRN Reason: SHORTNESS OF BREATH Albuterol/Ipratropium (Duoneb) 3 ml INHALATION Q4H.RT [facility] Last Admin: 10/12/17 06:55 Dose: 3 ml Dextrose (D50w Syringe) 0 gm IV X1 PRN; Protocol PRN Reason: Hypoglycemia Enoxaparin Sodium (Lovenox) 40 mg SC DAILY@1000 [facility] Last Admin: 10/11/17 11:59 Dose: 40 mg Famotidine (Pepcid) 20 mg PO BID [facility] Last Admin: 10/11/17 21:04 Dose: 20 mg Fluoxetine HCl (Prozac) 10 mg PO DAILY [facility] Last Admin: 10/11/17 11:58 Dose: 10 mg Glucagon () 1 mg IM .X1 PRN PRN Reason: Hypoglycemia Guaifenesin (Mucinex) 1,200 mg PO BID [facility] Last Admin: 10/11/17 21:05 Dose: 1,200 mg Hydralazine HCl (Apresoline) 10 mg IV Q4H PRN PRN PRN Reason: SBP > 160 Last Admin: 10/11/17 08:10 Dose: 10 mg Azithromycin 500 mg/ Dextrose 255 mls @ 250 mls/hr IV Q24 [facility] Stop: 10/13/17 11:02 Last Admin: 10/11/17 11:56 Dose: 250 mls/hr Ceftriaxone Sodium (Rocephin) 1 gm in 50 mls @ 100 mls/hr IV Q24H [facility] Last Admin: 10/11/17 11:00 Dose: 100 mls/hr Sodium Chloride () 1,000 mls @ 100 mls/hr IV .Q10H [facility] Last Admin: 10/12/17 07:18 Dose: 100 mls/hr Insulin Aspart (Novolog Flexpen (Bkc)) 0 units SC ACHS [facility] PRN Reason: Protocol Last Admin: 10/11/17 21:11 Dose: 1 unit Magnesium Hydroxide (Milk Of Magnesia) 30 ml PO DAILY PRN PRN PRN Reason: Constipation Ondansetron HCl (Zofran) 4 mg IV Q8H PRN PRN PRN Reason: NAUSEA Last Admin: 10/11/17 07:47 Dose: 4 mg Oxycodone HCl (Oxyir) 5 mg PO Q4H PRN PRN PRN Reason: Moderate Pain (pain scale 4-5) Last Admin: 10/12/17 01:59 Dose: 5 mg Sodium Chloride () 5 - 30 ml IV UD PRN PRN Reason: SALINE FLUSH Last Admin: 10/11/17 21:05 Dose: 10 ml Throat Lozenges (Cepacol Sore Throat Lozenge) 1 lozenge MUCOUS MEM Q2H PRN PRN PRN Reason: SORE THROAT Last Admin: 10/11/17 16:20 Dose: 1 lozenge
--- NOTE | 2017-10-12 08:10 | PCM.PN.HOSP ---
Subjective: Was seen and examined in the ICU. Been off BiPAP since last night. On 5 L of oxygen nasal cannula. Complains of shortness of breath and chills. Headaches are much better since being off BiPAP. Admits that he feels slightly better than he did when he came in. Objective: PHYSICAL EXAM: General: Alert, Oriented x3, Cooperative, 5 L nasal cannula oxygen HEENT: Atraumatic, PERRLA, EOMI, Normocephalic Oral: Moist Mucosa Neck: Supple Lungs: Managed entry at the lung bases with bilateral coarse crackles Cardiovascular: Regular rate, Regular Rhythm, Normal S1, Normal S2, No murmurs Abdomen: Bowel Sounds Present, Soft, Non Tender, Non-Distended, No Hepato-splenomegaly Extremities: No edema Skin: No rashes, No breakdown Musculoskeletal: No Tenderness to Palpation of Joints or Extremities Neurological: Cranial nerves II-XII grossly intact Psych/Mental Status: Normal Affect, Appropriate Vitals/I&O's: Vital Signs Temp Pulse Resp BP Pulse Ox 98.0 F 76 18 145/83 H 93 10/12/17 04:00 10/12/17 06:00 10/12/17 06:00 10/12/17 06:00 10/12/17 06:00 Oxygen Flow Rate 5 Oxygen Delivery Method Nasal Cannula Weight: 135.8 kg Body Mass Index (BMI) 37.3 Intake and Output for Last 24 Hours 10/10/17 10/11/17 10/12/17 23:59 23:59 23:59 Intake Total 5465 / 5465 1044 / 1044 Output Total 225 / 225 1145 / 1145 400 / 400 Balance -225 / -225 4320 / 4320 644 / 644 Microbiology Past 72 Hours 10/11/17 09:45 Sputum, Expectorated/Coughed Gram Stain - Final 10/10/17 18:30 Mucosa - Nasopharyngeal Respiratory Panel (PCR) - Final 10/10/17 18:25 Urine, Random Streptococcus pneumoniae Antigen (M - Final 10/10/17 18:25 Urine, Random Legionella Antigen - Final Laboratory Results 10/11/17 12:08: POC Glucose 190 H 10/11/17 18:04: POC Glucose 153 H 10/11/17 21:11: POC Glucose 176 H 10/12/17 04:05: WBC 7.2, RBC 3.80 L, Hgb 12.0 L, Hct 34.8 L, MCV 91.6, MCH 31.6, MCHC 34.5, RDW 12.3, RDW Differential 40.2, Plt Count 205, MPV 11.6, Immature Gran % (Auto) 0.100, Neut % (Auto) 75.5 H, Lymph % (Auto) 18.6 L, [place] % (Auto) 5.3, Eos % (Auto) 0.4, Baso % (Auto) 0.1, Absolute Neuts (auto) 5.4, Absolute Lymphs (auto) 1.34, Total Counted Not Reportable 10/12/17 04:05: Sodium 133 L, Potassium 3.6, Chloride 99, Carbon Dioxide 27.0, Anion Gap 7, BUN 14, Creatinine 0.78, Estim Creat Clear Calc 143.44, Est GFR (MDRD) Af Amer 139, Est GFR (MDRD) Non-Af 115, BUN/Creatinine Ratio 17.9, Glucose 152 H, Calcium 8.0 L Current Medications Acetaminophen (Tylenol) 650 mg PO Q6H PRN PRN PRN Reason: Mild Pain (scale 0-3)/T>100.7 Last Admin: 10/12/17 01:59 Dose: 650 mg Al Hydroxide/Mg Hydroxide (Mylanta Ii) 30 ml PO Q6H PRN PRN PRN Reason: Gastric burning Albuterol Sulfate (Ventolin Aerosols) 2.5 mg INHALATION Q2H PRN PRN PRN Reason: SHORTNESS OF BREATH Albuterol/Ipratropium (Duoneb) 3 ml INHALATION Q4H.RT [facility] Last Admin: 10/12/17 06:55 Dose: 3 ml Dextrose (D50w Syringe) 0 gm IV X1 PRN; Protocol PRN Reason: Hypoglycemia Enoxaparin Sodium (Lovenox) 40 mg SC DAILY@1000 [facility] Last Admin: 10/11/17 11:59 Dose: 40 mg Famotidine (Pepcid) 20 mg PO BID [facility] Last Admin: 10/11/17 21:04 Dose: 20 mg Fluoxetine HCl (Prozac) 10 mg PO DAILY [facility] Last Admin: 10/11/17 11:58 Dose: 10 mg Glucagon () 1 mg IM .X1 PRN PRN Reason: Hypoglycemia Guaifenesin (Mucinex) 1,200 mg PO BID [facility] Last Admin: 10/11/17 21:05 Dose: 1,200 mg Hydralazine HCl (Apresoline) 10 mg IV Q4H PRN PRN PRN Reason: SBP > 160 Last Admin: 10/11/17 08:10 Dose: 10 mg Azithromycin 500 mg/ Dextrose 255 mls @ 250 mls/hr IV Q24 [facility] Stop: 10/13/17 11:02 Last Admin: 10/11/17 11:56 Dose: 250 mls/hr Ceftriaxone Sodium (Rocephin) 1 gm in 50 mls @ 100 mls/hr IV Q24H [facility] Last Admin: 10/11/17 11:00 Dose: 100 mls/hr Sodium Chloride () 1,000 mls @ 100 mls/hr IV .Q10H [facility] Last Admin: 10/12/17 07:18 Dose: 100 mls/hr Insulin Aspart (Novolog Flexpen (Bkc)) 0 units SC ACHS [facility] PRN Reason: Protocol Last Admin: 10/11/17 21:11 Dose: 1 unit Magnesium Hydroxide (Milk Of Magnesia) 30 ml PO DAILY PRN PRN PRN Reason: Constipation Ondansetron HCl (Zofran) 4 mg IV Q8H PRN PRN PRN Reason: NAUSEA Last Admin: 10/11/17 07:47 Dose: 4 mg Oxycodone HCl (Oxyir) 5 mg PO Q4H PRN PRN PRN Reason: Moderate Pain (pain scale 4-5) Last Admin: 10/12/17 01:59 Dose: 5 mg Sodium Chloride () 5 - 30 ml IV UD PRN PRN Reason: SALINE FLUSH Last Admin: 10/11/17 21:05 Dose: 10 ml Throat Lozenges (Cepacol Sore Throat Lozenge) 1 lozenge MUCOUS MEM Q2H PRN PRN PRN Reason: SORE THROAT Last Admin: 10/11/17 16:20 Dose: 1 lozenge Assessment/Plan 41-year-old male with past medical history of obesity, MIKE, type 2 DM, chronic migraine headaches admitted with complaints of shortness of breath with associated cough, fever and chills ongoing for 3 days. Patient was recently diagnosed with pneumonia and treated with IV antibiotics in [facility], and discharged on oral doxycycline. He came into the ED when he was very short of breath and found to have SPO2 of 89% on room air. Patient has since been admitted to the ICU and managed on BiPAP. 1. Acute hypoxic respiratory failure secondary to bilateral lower lobe pneumonia, vitals have been stable, no fevers, no leukocytosis, remains on ceftriaxone and azithromycin(day2), Urine streptococcal and Legionella antigen is negative. Influenza and respiratory panel negative. 2. Acute migraine in a patient with history of chronic headaches, continue to monitor and treat symptomatically 3. Type 2 diabetes, blood sugars are stable, metformin on hold, will continue to monitor blood sugars with insulin sliding scale 4. Morbid Obesity: weight loss and lifestyle changes encouraged 5. Dyslipidemia: fenofibrate on hold, will resume at discharge 6. Depression, on Prozac 7. MIKE 8. GERD, on famotidine 9. DVT prophylaxis on Lovenox 10. Disposition: Transfer to [facility] floor
--- NOTE | 2017-10-12 08:15 | PN_ITS ---
Subjective: Was seen and examined in the ICU. Been off BiPAP since last night. On 5 L of oxygen nasal cannula. Complains of shortness of breath and chills. Headaches are much better since being off BiPAP. Admits that he feels slightly better than he did when he came in. Objective: PHYSICAL EXAM: General: Alert, Oriented x3, Cooperative, 5 L nasal cannula oxygen HEENT: Atraumatic, PERRLA, EOMI, Normocephalic Oral: Moist Mucosa Neck: Supple Lungs: Managed entry at the lung bases with bilateral coarse crackles Cardiovascular: Regular rate, Regular Rhythm, Normal S1, Normal S2, No murmurs Abdomen: Bowel Sounds Present, Soft, Non Tender, Non-Distended, No Hepato- splenomegaly Extremities: No edema Skin: No rashes, No breakdown Musculoskeletal: No Tenderness to Palpation of Joints or Extremities Neurological: Cranial nerves II-XII grossly intact Psych/Mental Status: Normal Affect, Appropriate Vitals/I&O's: Vital Signs Temp Pulse Resp BP Pulse Ox 98.0 F 76 18 145/83 H 93 10/12/17 04:00 10/12/17 06:00 10/12/17 06:00 10/12/17 06:00 10/12/17 06:00 Oxygen Flow Rate 5 Oxygen Delivery Method Nasal Cannula Weight: 135.8 kg Body Mass Index (BMI) 37.3 Intake and Output for Last 24 Hours 10/10/17 10/11/17 10/12/17 23:59 23:59 23:59 Intake Total 5465 / 5465 1044 / 1044 Output Total 225 / 225 1145 / 1145 400 / 400 Balance -225 / -225 4320 / 4320 644 / 644 Microbiology Past 72 Hours 10/11/17 09:45 Sputum, Expectorated/Coughed Gram Stain - Final 10/10/17 18:30 Mucosa - Nasopharyngeal Respiratory Panel (PCR) - Final 10/10/17 18:25 Urine, Random Streptococcus pneumoniae Antigen (M - Final 10/10/17 18:25 Urine, Random Legionella Antigen - Final Laboratory Results 10/11/17 12:08: POC Glucose 190 H 10/11/17 18:04: POC Glucose 153 H 10/11/17 21:11: POC Glucose 176 H 10/12/17 04:05: WBC 7.2, RBC 3.80 L, Hgb 12.0 L, Hct 34.8 L, MCV 91.6, MCH 31.6 , MCHC 34.5, RDW 12.3, RDW Differential 40.2, Plt Count 205, MPV 11.6, Immature Gran % (Auto) 0.100, Neut % (Auto) 75.5 H, Lymph % (Auto) 18.6 L, [place] % (Auto) 5.3, Eos % (Auto) 0.4, Baso % (Auto) 0.1, Absolute Neuts (auto) 5.4, Absolute Lymphs (auto) 1.34, Total Counted Not Reportable 10/12/17 04:05: Sodium 133 L, Potassium 3.6, Chloride 99, Carbon Dioxide 27.0, Anion Gap 7, BUN 14, Creatinine 0.78, Estim Creat Clear Calc 143.44, Est GFR ( MDRD) Af Amer 139, Est GFR (MDRD) Non-Af 115, BUN/Creatinine Ratio 17.9, Glucose 152 H, Calcium 8.0 L Current Medications Acetaminophen (Tylenol) 650 mg PO Q6H PRN PRN PRN Reason: Mild Pain (scale 0-3)/T>100.7 Last Admin: 10/12/17 01:59 Dose: 650 mg Al Hydroxide/Mg Hydroxide (Mylanta Ii) 30 ml PO Q6H PRN PRN PRN Reason: Gastric burning Albuterol Sulfate (Ventolin Aerosols) 2.5 mg INHALATION Q2H PRN PRN PRN Reason: SHORTNESS OF BREATH Albuterol/Ipratropium (Duoneb) 3 ml INHALATION Q4H.RT [facility] Last Admin: 10/12/17 06:55 Dose: 3 ml Dextrose (D50w Syringe) 0 gm IV X1 PRN; Protocol PRN Reason: Hypoglycemia Enoxaparin Sodium (Lovenox) 40 mg SC DAILY@1000 [facility] Last Admin: 10/11/17 11:59 Dose: 40 mg Famotidine (Pepcid) 20 mg PO BID [facility] Last Admin: 10/11/17 21:04 Dose: 20 mg Fluoxetine HCl (Prozac) 10 mg PO DAILY [facility] Last Admin: 10/11/17 11:58 Dose: 10 mg Glucagon () 1 mg IM .X1 PRN PRN Reason: Hypoglycemia Guaifenesin (Mucinex) 1,200 mg PO BID [facility] Last Admin: 10/11/17 21:05 Dose: 1,200 mg Hydralazine HCl (Apresoline) 10 mg IV Q4H PRN PRN PRN Reason: SBP > 160 Last Admin: 10/11/17 08:10 Dose: 10 mg Azithromycin 500 mg/ Dextrose 255 mls @ 250 mls/hr IV Q24 [facility] Stop: 10/13/17 11:02 Last Admin: 10/11/17 11:56 Dose: 250 mls/hr Ceftriaxone Sodium (Rocephin) 1 gm in 50 mls @ 100 mls/hr IV Q24H [facility] Last Admin: 10/11/17 11:00 Dose: 100 mls/hr Sodium Chloride () 1,000 mls @ 100 mls/hr IV .Q10H [facility] Last Admin: 10/12/17 07:18 Dose: 100 mls/hr Insulin Aspart (Novolog Flexpen (Bkc)) 0 units SC ACHS [facility] PRN Reason: Protocol Last Admin: 10/11/17 21:11 Dose: 1 unit Magnesium Hydroxide (Milk Of Magnesia) 30 ml PO DAILY PRN PRN PRN Reason: Constipation Ondansetron HCl (Zofran) 4 mg IV Q8H PRN PRN PRN Reason: NAUSEA Last Admin: 10/11/17 07:47 Dose: 4 mg Oxycodone HCl (Oxyir) 5 mg PO Q4H PRN PRN PRN Reason: Moderate Pain (pain scale 4-5) Last Admin: 10/12/17 01:59 Dose: 5 mg Sodium Chloride () 5 - 30 ml IV UD PRN PRN Reason: SALINE FLUSH Last Admin: 10/11/17 21:05 Dose: 10 ml Throat Lozenges (Cepacol Sore Throat Lozenge) 1 lozenge MUCOUS MEM Q2H PRN PRN PRN Reason: SORE THROAT Last Admin: 10/11/17 16:20 Dose: 1 lozenge Assessment/Plan 41-year-old male with past medical history of obesity, MIKE, type 2 DM, chronic migraine headaches admitted with complaints of shortness of breath with associated cough, fever and chills ongoing for 3 days. Patient was recently diagnosed with pneumonia and treated with IV antibiotics in [facility], and discharged on oral doxycycline. He came into the ED when he was very short of breath and found to have SPO2 of 89% on room air. Patient has since been admitted to the ICU and managed on BiPAP. 1. Acute hypoxic respiratory failure secondary to bilateral lower lobe pneumonia, vitals have been stable, no fevers, no leukocytosis, remains on ceftriaxone and azithromycin(day2), Urine streptococcal and Legionella antigen is negative. Influenza and respiratory panel negative. 2. Acute migraine in a patient with history of chronic headaches, continue to monitor and treat symptomatically 3. Type 2 diabetes, blood sugars are stable, metformin on hold, will continue to monitor blood sugars with insulin sliding scale 4. Morbid Obesity: weight loss and lifestyle changes encouraged 5. Dyslipidemia: fenofibrate on hold, will resume at discharge 6. Depression, on Prozac 7. MIKE 8. GERD, on famotidine 9. DVT prophylaxis on Lovenox 10. Disposition: Transfer to [facility] floor
--- NOTE | 2017-10-12 08:17 | PN_ITS ---
Vitals/I&O's: Vital Signs Temp Pulse Resp BP Pulse Ox 98.0 F 76 18 145/83 H 93 10/12/17 04:00 10/12/17 06:00 10/12/17 06:00 10/12/17 06:00 10/12/17 06:00 Oxygen Flow Rate 5 Oxygen Delivery Method Nasal Cannula Weight: 135.8 kg Body Mass Index (BMI) 37.3 Intake and Output for Last 24 Hours 10/10/17 10/11/17 10/12/17 23:59 23:59 23:59 Intake Total 5465 / 5465 1044 / 1044 Output Total 225 / 225 1145 / 1145 400 / 400 Balance -225 / -225 4320 / 4320 644 / 644 Microbiology Past 72 Hours 10/11/17 09:45 Sputum, Expectorated/Coughed Gram Stain - Final 10/10/17 18:30 Mucosa - Nasopharyngeal Respiratory Panel (PCR) - Final 10/10/17 18:25 Urine, Random Streptococcus pneumoniae Antigen (M - Final 10/10/17 18:25 Urine, Random Legionella Antigen - Final Laboratory Results 10/11/17 12:08: POC Glucose 190 H 10/11/17 18:04: POC Glucose 153 H 10/11/17 21:11: POC Glucose 176 H 10/12/17 04:05: WBC 7.2, RBC 3.80 L, Hgb 12.0 L, Hct 34.8 L, MCV 91.6, MCH 31.6 , MCHC 34.5, RDW 12.3, RDW Differential 40.2, Plt Count 205, MPV 11.6, Immature Gran % (Auto) 0.100, Neut % (Auto) 75.5 H, Lymph % (Auto) 18.6 L, [place] % (Auto) 5.3, Eos % (Auto) 0.4, Baso % (Auto) 0.1, Absolute Neuts (auto) 5.4, Absolute Lymphs (auto) 1.34, Total Counted Not Reportable 10/12/17 04:05: Sodium 133 L, Potassium 3.6, Chloride 99, Carbon Dioxide 27.0, Anion Gap 7, BUN 14, Creatinine 0.78, Estim Creat Clear Calc 143.44, Est GFR ( MDRD) Af Amer 139, Est GFR (MDRD) Non-Af 115, BUN/Creatinine Ratio 17.9, Glucose 152 H, Calcium 8.0 L Current Medications Acetaminophen (Tylenol) 650 mg PO Q6H PRN PRN PRN Reason: Mild Pain (scale 0-3)/T>100.7 Last Admin: 10/12/17 01:59 Dose: 650 mg Al Hydroxide/Mg Hydroxide (Mylanta Ii) 30 ml PO Q6H PRN PRN PRN Reason: Gastric burning Albuterol Sulfate (Ventolin Aerosols) 2.5 mg INHALATION Q2H PRN PRN PRN Reason: SHORTNESS OF BREATH Albuterol/Ipratropium (Duoneb) 3 ml INHALATION Q4H.RT [facility] Last Admin: 10/12/17 06:55 Dose: 3 ml Dextrose (D50w Syringe) 0 gm IV X1 PRN; Protocol PRN Reason: Hypoglycemia Enoxaparin Sodium (Lovenox) 40 mg SC DAILY@1000 [facility] Last Admin: 10/11/17 11:59 Dose: 40 mg Famotidine (Pepcid) 20 mg PO BID [facility] Last Admin: 10/11/17 21:04 Dose: 20 mg Fluoxetine HCl (Prozac) 10 mg PO DAILY [facility] Last Admin: 10/11/17 11:58 Dose: 10 mg Glucagon () 1 mg IM .X1 PRN PRN Reason: Hypoglycemia Guaifenesin (Mucinex) 1,200 mg PO BID [facility] Last Admin: 10/11/17 21:05 Dose: 1,200 mg Hydralazine HCl (Apresoline) 10 mg IV Q4H PRN PRN PRN Reason: SBP > 160 Last Admin: 10/11/17 08:10 Dose: 10 mg Azithromycin 500 mg/ Dextrose 255 mls @ 250 mls/hr IV Q24 [facility] Stop: 10/13/17 11:02 Last Admin: 10/11/17 11:56 Dose: 250 mls/hr Ceftriaxone Sodium (Rocephin) 1 gm in 50 mls @ 100 mls/hr IV Q24H [facility] Last Admin: 10/11/17 11:00 Dose: 100 mls/hr Sodium Chloride () 1,000 mls @ 100 mls/hr IV .Q10H [facility] Last Admin: 10/12/17 07:18 Dose: 100 mls/hr Insulin Aspart (Novolog Flexpen (Bkc)) 0 units SC ACHS [facility] PRN Reason: Protocol Last Admin: 10/11/17 21:11 Dose: 1 unit Magnesium Hydroxide (Milk Of Magnesia) 30 ml PO DAILY PRN PRN PRN Reason: Constipation Ondansetron HCl (Zofran) 4 mg IV Q8H PRN PRN PRN Reason: NAUSEA Last Admin: 10/11/17 07:47 Dose: 4 mg Oxycodone HCl (Oxyir) 5 mg PO Q4H PRN PRN PRN Reason: Moderate Pain (pain scale 4-5) Last Admin: 10/12/17 01:59 Dose: 5 mg Sodium Chloride () 5 - 30 ml IV UD PRN PRN Reason: SALINE FLUSH Last Admin: 10/11/17 21:05 Dose: 10 ml Throat Lozenges (Cepacol Sore Throat Lozenge) 1 lozenge MUCOUS MEM Q2H PRN PRN PRN Reason: SORE THROAT Last Admin: 10/11/17 16:20 Dose: 1 lozenge
[2017-10-12] MEDS: guaiFENesin 1,200 MG Tablet 1200 MG PO ×2 (10:25→21:15)
[2017-10-12] MEDS: Enoxaparin 40 MG/0.4 ML Syringe SC (10:26)
[2017-10-12] MEDS: FLUoxetine 10 MG Capsule PO (10:26)
[2017-10-12] MEDS: Famotidine 20 MG Tablet PO ×2 (10:26→21:15)
[2017-10-12] MEDS: Ceftriaxone 1 GM/50 ML BAG IV (10:31)
[2017-10-12 10:56] LABS: Bedside Glucose 134 mg/dL (70-110)
[2017-10-12] MEDS: 0.9% NaCl Peripheral Flush Adult/Peds IV (12:48)
[2017-10-12 16:35] LABS: Bedside Glucose 159 mg/dL (70-110)
[2017-10-12 23:00] LABS: Bedside Glucose 118 mg/dL (70-110)
--- NOTE | 2017-10-12 23:41 | CPS ---
Pt refuses PAP at this time.
[2017-10-13] VITALS (15 sets, daily range): BP systolic 113–132; BP diastolic 79–88; PULSE 75–99; RESP 16–20; TEMP 36.7–37.1; O2SAT 86–96
[2017-10-13] MEDS: Ipratropium/Albuterol Sulfate 3 ML AMPUL.NEB INHALATION ×6 (02:36→23:01)
[2017-10-13] MEDS: Acetaminophen 325 MG Tablet 650 MG PO ×4 (03:27→22:33)
[2017-10-13] MEDS: oxyCODONE 5 MG Tablet PO ×4 (03:27→20:52)
[2017-10-13 06:50] LABS: Bedside Glucose 107 mg/dL (70-110)
[2017-10-13] MEDS: guaiFENesin 1,200 MG Tablet 1200 MG PO ×2 (09:17→22:33)
[2017-10-13] MEDS: Famotidine 20 MG Tablet PO ×2 (09:17→22:34)
[2017-10-13] MEDS: FLUoxetine 10 MG Capsule PO (09:17)
[2017-10-13] MEDS: Enoxaparin 40 MG/0.4 ML Syringe SC (09:17)
--- NOTE | 2017-10-13 10:15 | PCM.PN.HOSP ---
Subjective: Patient was seen and examined. Feels much better. Walked around and felt short of breath on exertion. Prior to walk-in his SPO2 was 92%. Had a low-grade temperature of 100? yesterday. Denies any chest pain or dizziness or palpitation. Objective: PHYSICAL EXAM: General: Alert, Oriented x3, Cooperative, on 1L oxygen, not pale not jaundiced. HEENT: Atraumatic, PERRLA, EOMI, Normocephalic Oral: Moist Mucosa Neck: Supple Lungs: Decreased air entry at the middle and lower lung zones, with bilateral coarse crackles Cardiovascular: Regular rate, Regular Rhythm, Normal S1, Normal S2, No murmurs Abdomen: Bowel Sounds Present, Soft, Non Tender, Non-Distended, No Hepato-splenomegaly Extremities: No edema Skin: No breakdown Musculoskeletal: No Tenderness to Palpation of Joints or Extremities Neurological: Cranial nerves II-XII grossly intact Psych/Mental Status: Normal Affect, Appropriate Vitals/I&O's: Vital Signs Temp Pulse Resp BP Pulse Ox 98.0 F 78 18 113/83 H 92 10/13/17 08:41 10/13/17 08:41 10/13/17 08:41 10/13/17 08:41 10/13/17 08:41 Oxygen Flow Rate 3 Oxygen Delivery Method Room Air Weight: 135.8 kg Body Mass Index (BMI) 37.3 Intake and Output for Last 24 Hours 10/11/17 10/12/17 10/13/17 23:59 23:59 23:59 Intake Total 5465 / 5465 1479 / 1479 Output Total 1145 / 1145 400 / 400 Balance 4320 / 4320 1079 / 1079 Microbiology Past 72 Hours 10/11/17 09:45 Sputum, Expectorated/Coughed Gram Stain - Final 10/11/17 09:45 Sputum, Expectorated/Coughed Respiratory Culture - Preliminary 10/10/17 18:30 Mucosa - Nasopharyngeal Respiratory Panel (PCR) - Final 10/10/17 18:25 Urine, Random Streptococcus pneumoniae Antigen (M - Final 10/10/17 18:25 Urine, Random Legionella Antigen - Final Laboratory Results 10/12/17 10:51: POC Glucose 134 H 10/12/17 16:08: POC Glucose 159 H 10/12/17 21:18: POC Glucose 118 H 10/13/17 06:42: POC Glucose 107 Current Medications Acetaminophen (Tylenol) 650 mg PO Q6H PRN PRN PRN Reason: Mild Pain (scale 0-3)/T>100.7 Last Admin: 10/13/17 10:12 Dose: 650 mg Al Hydroxide/Mg Hydroxide (Mylanta Ii) 30 ml PO Q6H PRN PRN PRN Reason: Gastric burning Albuterol Sulfate (Ventolin Aerosols) 2.5 mg INHALATION Q2H PRN PRN PRN Reason: SHORTNESS OF BREATH Albuterol/Ipratropium (Duoneb) 3 ml INHALATION Q4H.RT [facility] Last Admin: 10/13/17 06:42 Dose: 3 ml Dextrose (D50w Syringe) 0 gm IV X1 PRN; Protocol PRN Reason: Hypoglycemia Enoxaparin Sodium (Lovenox) 40 mg SC DAILY@1000 SIENA Last Admin: 10/13/17 09:17 Dose: 40 mg Famotidine (Pepcid) 20 mg PO BID [facility] Last Admin: 10/13/17 09:17 Dose: 20 mg Fluoxetine HCl (Prozac) 10 mg PO DAILY [facility] Last Admin: 10/13/17 09:17 Dose: 10 mg Glucagon () 1 mg IM .X1 PRN PRN Reason: Hypoglycemia Guaifenesin (Mucinex) 1,200 mg PO BID [facility] Last Admin: 10/13/17 09:17 Dose: 1,200 mg Hydralazine HCl (Apresoline) 10 mg IV Q4H PRN PRN PRN Reason: SBP > 160 Last Admin: 10/11/17 08:10 Dose: 10 mg Azithromycin 500 mg/ Dextrose 255 mls @ 250 mls/hr IV Q24 [facility] Stop: 10/13/17 11:02 Last Admin: 10/12/17 12:39 Dose: 250 mls/hr Ceftriaxone Sodium (Rocephin) 1 gm in 50 mls @ 100 mls/hr IV Q24H [facility] Last Admin: 10/12/17 10:31 Dose: 100 mls/hr Insulin Aspart (Novolog Flexpen (Bkc)) 0 units SC ACHS [facility] PRN Reason: Protocol Last Admin: 10/13/17 06:45 Dose: Not Given Magnesium Hydroxide (Milk Of Magnesia) 30 ml PO DAILY PRN PRN PRN Reason: Constipation Ondansetron HCl (Zofran) 4 mg IV Q8H PRN PRN PRN Reason: NAUSEA Last Admin: 10/11/17 07:47 Dose: 4 mg Oxycodone HCl (Oxyir) 5 mg PO Q4H PRN PRN PRN Reason: Moderate Pain (pain scale 4-5) Last Admin: 10/13/17 10:12 Dose: 5 mg Sodium Chloride () 5 - 30 ml IV UD PRN PRN Reason: SALINE FLUSH Last Admin: 10/12/17 12:48 Dose: 10 ml Throat Lozenges (Cepacol Sore Throat Lozenge) 1 lozenge MUCOUS MEM Q2H PRN PRN PRN Reason: SORE THROAT Last Admin: 10/11/17 16:20 Dose: 1 lozenge Assessment/Plan 41-year-old male with past medical history of obesity, MIKE, type 2 DM, chronic migraine headaches admitted with complaints of shortness of breath with associated cough, fever and chills ongoing for 3 days. Patient was recently diagnosed with pneumonia and treated with IV antibiotics in [facility], and discharged on oral doxycycline. He came into the ED when he was very short of breath and found to have SPO2 of 89% on room air. Patient has since been admitted to the ICU and managed on BiPAP. 1. Acute hypoxic respiratory failure secondary to bilateral lower lobe pneumonia, on BiPAP, transferred from ICU, T-max was 100?, vitals have been stable, remains on ceftriaxone and azithromycin(day3), Urine streptococcal and Legionella antigen is negative. Influenza and respiratory panel negative. Continue to monitor 2. Acute migraine in a patient with history of chronic headaches, improved 3. Type 2 diabetes, blood sugars are stable, metformin on hold, will continue to monitor blood sugars with insulin sliding scale 4. Morbid Obesity: weight loss and lifestyle changes encouraged 5. Dyslipidemia: fenofibrate on hold, will resume at discharge 6. Depression, on Prozac 7. MIKE 8. GERD, on famotidine 9. DVT prophylaxis on Lovenox 10. Disposition: Transfer to [facility] floor
--- NOTE | 2017-10-13 10:24 | PCM.PROGNOTE ---
Subjective: The patient was seen and examined at the bedside this morning. Events from the last 24 hours have been reviewed. The patient is currently afebrile, hemodynamically stable and maintaining appropriate oxygen saturations on room air at rest. The patient did desaturate with ambulation to 86% on room air. Although clinically improved, he seems reluctant for discharge. Objective: The patient's most recent lab work, culture data and imaging studies have all been personally reviewed. Respiratory Gram stain revealed 3+ white blood cells, 2+ gram-negative rods and 2+ gram-positive cocci. Respiratory viral panel along with strep and urine Legionella antigens have all been negative. Blood and urine cultures are currently pending. CTA chest completed yesterday revealed no evidence of PE, but did demonstrate bibasilar consolidations. - Physical Exam General: Alert, Oriented x3, Cooperative, No apparent distress HEENT: Atraumatic, PERRLA, Normocephalic Oral: Moist Mucosa, No Gingival or Mucosal Lesions/ Ulcerations Neck: Supple, No Nodes, Trachea Midline Lungs: No rhonchi, No wheeze, No rales, Diminished Cardiovascular: Regular rate, Regular Rhythm, Normal S1, Normal S2, No murmurs Abdomen: Bowel Sounds Present, Soft, Non Tender Extremities: No clubbing, No cyanosis, No edema Skin: No rashes, No breakdown Musculoskeletal: No Tenderness to Palpation of Joints or Extremities, No Muscle Wasting Lymphatic: No Cervical, Supraclavicular, or Inguinal Adenopathy Neurological: Neuro grossly intact Psych/Mental Status: Alert and oriented to time, place, person, mood and affect Vital Signs Temp Pulse Resp BP Pulse Ox 98.0 F 78 18 113/83 H 95 10/13/17 08:41 10/13/17 08:41 10/13/17 08:41 10/13/17 08:41 10/13/17 10:17 Oxygen Flow Rate [AMBULATION 1 with Oxygen] Oxygen Flow Rate 3 Oxygen Delivery Method Room Air Weight: 299 lb 6.204 oz Body Mass Index (BMI) 37.3 Intake and Output for Last 24 Hours 10/11/17 10/12/17 10/13/17 23:59 23:59 23:59 Intake Total 5465 / 5465 1479 / 1479 Output Total 1145 / 1145 400 / 400 Balance 4320 / 4320 1079 / 1079 Microbiology Past 72 Hours 10/11/17 09:45 Gram Stain - Final Sputum, Expectorated/Coughed Respiratory Culture - Preliminary 10/10/17 18:30 Respiratory Panel (PCR) - Final Mucosa - Nasopharyngeal 10/10/17 18:25 Streptococcus pneumoniae Antigen (M - Final Urine, Random 10/10/17 18:25 Legionella Antigen - Final Urine, Random POC Glucose 10/13/17 10/12/17 10/12/17 06:42 21:18 16:08 POC Glucose 107 118 H 159 H 10/12/17 10:51 POC Glucose 134 H Clinical Impression(s) from Imaging Studies Chest X-Ray 10/10/17 15:08 IMPRESSION: Normal x-ray examination of the chest. Electronically Signed: Jaime Amaya MD at 16:45 EST , Service support , Chest X-Ray 10/11/17 07:09 IMPRESSION: Infiltration in the left lower lobe. There is blunting of the left costophrenic angle. Increased markings at the right lung base. Electronically Signed: Dmitry Murguia MD at 11:26 EST Tel [phone], Service support , Chest CTA 10/11/17 09:30 IMPRESSION: Bibasilar consolidation with airspace disease. Diffuse fatty infiltration of the liver. Electronically Signed: Dmitry Murguia MD at 11:25 EST Tel [phone], Service support , Assessment/Plan RECOMMENDATIONS: 1. Continue antibiotics with plans to complete a 7 day treatment course. 2. Continue oxycodone for pain 3. Wean supplemental oxygen to maintain saturations at or above 90% 4. Encourage incentive spirometer use and mobilize patient as tolerated. 5. Perform walking oximetry study prior to consideration for discharge from the hospital. 6. The patient can follow-up with our nurse practitioner within 2 weeks of his discharge from the hospital. IMPRESSIONS: 1. Acute hypoxemic respiratory failure secondary to community-acquired pneumonia Improving clinically. The patient is no longer BiPAP dependent. Would plan to continue to wean supplemental oxygen to maintain saturations at or above 90%. Continue current antimicrobial regimen, with plans to complete a 7 day treatment course. Encourage incentive spirometer use and mobilize patient as tolerated. CTA chest was personally reviewed and showed no evidence for PE, but did confirm the presence of bibasilar consolidations. Perform walking oximetry study prior to consideration for discharge from the hospital. The patient can follow-up in the pulmonary medicine clinic within 2 weeks of his discharge. 2. Obesity/GERD/anxiety/diabetes/allergic rhinitis Complicates care, management, recovery and prognosis. Continue home medications as indicated. Sliding scale insulin will be utilized in place of his metformin. This note was generated with [employer] dictation software. It may contain incorrect words, spelling, and punctuation that were not noted in checking the note before signing. As the patient is without any further ICU needs, will sign off. Please call with any additional questions. Code Visit Inpatient E&M: 92034 Subs Hosp L2
--- NOTE | 2017-10-13 10:43 | PN_ITS ---
Subjective: Patient was seen and examined. Feels much better. Walked around and felt short of breath on exertion. Prior to walk-in his SPO2 was 92%. Had a low- grade temperature of 100? yesterday. Denies any chest pain or dizziness or palpitation. Objective: PHYSICAL EXAM: General: Alert, Oriented x3, Cooperative, on 1L oxygen, not pale not jaundiced. HEENT: Atraumatic, PERRLA, EOMI, Normocephalic Oral: Moist Mucosa Neck: Supple Lungs: Decreased air entry at the middle and lower lung zones, with bilateral coarse crackles Cardiovascular: Regular rate, Regular Rhythm, Normal S1, Normal S2, No murmurs Abdomen: Bowel Sounds Present, Soft, Non Tender, Non-Distended, No Hepato- splenomegaly Extremities: No edema Skin: No breakdown Musculoskeletal: No Tenderness to Palpation of Joints or Extremities Neurological: Cranial nerves II-XII grossly intact Psych/Mental Status: Normal Affect, Appropriate Vitals/I&O's: Vital Signs Temp Pulse Resp BP Pulse Ox 98.0 F 78 18 113/83 H 92 10/13/17 08:41 10/13/17 08:41 10/13/17 08:41 10/13/17 08:41 10/13/17 08:41 Oxygen Flow Rate 3 Oxygen Delivery Method Room Air Weight: 135.8 kg Body Mass Index (BMI) 37.3 Intake and Output for Last 24 Hours 10/11/17 10/12/17 10/13/17 23:59 23:59 23:59 Intake Total 5465 / 5465 1479 / 1479 Output Total 1145 / 1145 400 / 400 Balance 4320 / 4320 1079 / 1079 Microbiology Past 72 Hours 10/11/17 09:45 Sputum, Expectorated/Coughed Gram Stain - Final 10/11/17 09:45 Sputum, Expectorated/Coughed Respiratory Culture - Preliminary 10/10/17 18:30 Mucosa - Nasopharyngeal Respiratory Panel (PCR) - Final 10/10/17 18:25 Urine, Random Streptococcus pneumoniae Antigen (M - Final 10/10/17 18:25 Urine, Random Legionella Antigen - Final Laboratory Results 10/12/17 10:51: POC Glucose 134 H 10/12/17 16:08: POC Glucose 159 H 10/12/17 21:18: POC Glucose 118 H 10/13/17 06:42: POC Glucose 107 Current Medications Acetaminophen (Tylenol) 650 mg PO Q6H PRN PRN PRN Reason: Mild Pain (scale 0-3)/T>100.7 Last Admin: 10/13/17 10:12 Dose: 650 mg Al Hydroxide/Mg Hydroxide (Mylanta Ii) 30 ml PO Q6H PRN PRN PRN Reason: Gastric burning Albuterol Sulfate (Ventolin Aerosols) 2.5 mg INHALATION Q2H PRN PRN PRN Reason: SHORTNESS OF BREATH Albuterol/Ipratropium (Duoneb) 3 ml INHALATION Q4H.RT [facility] Last Admin: 10/13/17 06:42 Dose: 3 ml Dextrose (D50w Syringe) 0 gm IV X1 PRN; Protocol PRN Reason: Hypoglycemia Enoxaparin Sodium (Lovenox) 40 mg SC DAILY@1000 SIENA Last Admin: 10/13/17 09:17 Dose: 40 mg Famotidine (Pepcid) 20 mg PO BID [facility] Last Admin: 10/13/17 09:17 Dose: 20 mg Fluoxetine HCl (Prozac) 10 mg PO DAILY [facility] Last Admin: 10/13/17 09:17 Dose: 10 mg Glucagon () 1 mg IM .X1 PRN PRN Reason: Hypoglycemia Guaifenesin (Mucinex) 1,200 mg PO BID [facility] Last Admin: 10/13/17 09:17 Dose: 1,200 mg Hydralazine HCl (Apresoline) 10 mg IV Q4H PRN PRN PRN Reason: SBP > 160 Last Admin: 10/11/17 08:10 Dose: 10 mg Azithromycin 500 mg/ Dextrose 255 mls @ 250 mls/hr IV Q24 [facility] Stop: 10/13/17 11:02 Last Admin: 10/12/17 12:39 Dose: 250 mls/hr Ceftriaxone Sodium (Rocephin) 1 gm in 50 mls @ 100 mls/hr IV Q24H [facility] Last Admin: 10/12/17 10:31 Dose: 100 mls/hr Insulin Aspart (Novolog Flexpen (Bkc)) 0 units SC ACHS [facility] PRN Reason: Protocol Last Admin: 10/13/17 06:45 Dose: Not Given Magnesium Hydroxide (Milk Of Magnesia) 30 ml PO DAILY PRN PRN PRN Reason: Constipation Ondansetron HCl (Zofran) 4 mg IV Q8H PRN PRN PRN Reason: NAUSEA Last Admin: 10/11/17 07:47 Dose: 4 mg Oxycodone HCl (Oxyir) 5 mg PO Q4H PRN PRN PRN Reason: Moderate Pain (pain scale 4-5) Last Admin: 10/13/17 10:12 Dose: 5 mg Sodium Chloride () 5 - 30 ml IV UD PRN PRN Reason: SALINE FLUSH Last Admin: 10/12/17 12:48 Dose: 10 ml Throat Lozenges (Cepacol Sore Throat Lozenge) 1 lozenge MUCOUS MEM Q2H PRN PRN PRN Reason: SORE THROAT Last Admin: 10/11/17 16:20 Dose: 1 lozenge Assessment/Plan 41-year-old male with past medical history of obesity, MIKE, type 2 DM, chronic migraine headaches admitted with complaints of shortness of breath with associated cough, fever and chills ongoing for 3 days. Patient was recently diagnosed with pneumonia and treated with IV antibiotics in [facility], and discharged on oral doxycycline. He came into the ED when he was very short of breath and found to have SPO2 of 89% on room air. Patient has since been admitted to the ICU and managed on BiPAP. 1. Acute hypoxic respiratory failure secondary to bilateral lower lobe pneumonia, on BiPAP, transferred from ICU, T-max was 100?, vitals have been stable, remains on ceftriaxone and azithromycin(day3), Urine streptococcal and Legionella antigen is negative. Influenza and respiratory panel negative. Continue to monitor 2. Acute migraine in a patient with history of chronic headaches, improved 3. Type 2 diabetes, blood sugars are stable, metformin on hold, will continue to monitor blood sugars with insulin sliding scale 4. Morbid Obesity: weight loss and lifestyle changes encouraged 5. Dyslipidemia: fenofibrate on hold, will resume at discharge 6. Depression, on Prozac 7. MIKE 8. GERD, on famotidine 9. DVT prophylaxis on Lovenox 10. Disposition: Transfer to [facility] floor
[2017-10-13] MEDS: Ceftriaxone 1 GM/50 ML BAG IV (11:23)
[2017-10-13 11:36] LABS: Bedside Glucose 191 mg/dL (70-110)
[2017-10-13 16:36] LABS: Bedside Glucose 119 mg/dL (70-110)
[2017-10-13 23:06] LABS: Bedside Glucose 106 mg/dL (70-110)
[2017-10-14] VITALS (12 sets, daily range): BP systolic 130–135; BP diastolic 72–81; PULSE 77–102; RESP 16–20; TEMP 36.5–36.8; O2SAT 88–96
[2017-10-14] MEDS: Ipratropium/Albuterol Sulfate 3 ML AMPUL.NEB INHALATION ×4 (03:31→14:58)
[2017-10-14 07:30] LABS: Bedside Glucose 134 mg/dL (70-110)
[2017-10-14 08:08] LABS: Absolute Lymphocyte Count 2.03 X10^3/ul (0.83-4.51); Absolute Neutrophil Count 2.8 X10^3/uL (2.0-7.7); Basophil# 0.02 X10^3/uL; Basophil% 0.4 % (0-1); Eosinophil# 0.21 X10^3/uL; Eosinophils% 3.7 % (0-5); Hemoglobin 12.9 g/dl (13.0-16.5); Lymphocyte # 2.03 X10^3/ul (4.0); Lymphocyte % 35.7 % (19-41); Mean Corp Hgb Conc 34.9 g/gl (32-36); Mean Corpuscular Hgb 31.6 pg (27.0-32.0); Mean Corpuscular Volume 90.7 fL (80-94); Mean Platelet Vol. 11.1 fl (6.2-12.0); Monocyte# 0.54 X10^3/uL; Monocyte% 9.5 % (0-10); Neutrophil # 2.84 X10^3/uL (2.7-7.7); Platelet Count 276 K/mm3 (150-450); RBC Distribution Width CV 12.6 % (11.6-14.6); RBC Distribution Width SD 41.4 fl (35.1-43.9); Red Blood Count 4.08 M/mm3 (4.6-6.2); White Blood Count 5.7 K/mm3 (4.4-11.0)
[2017-10-14 08:21] LABS: POSITIVE COUNT NO; POSITIVE DIFFERENTIAL NO; POSITIVE MORPHOLOGY NO
[2017-10-14 08:22] LABS: Anion Gap 10 (5-15); BUN 10 mg/dL (7-18); BUN/Creat Ratio 13.8 RATIO (10-20); Calcium,Total 8.6 mg/dL (8.5-10.1); Chloride 103 mmol/L (98-107); Creatinine, Serum 0.72 mg/dL (0.70-1.30); EST Glomerular Filtration Rate 126 mL/min (>60); Est Glom Filt Rate - Afr Amer 152 mL/min (>60); Estimated Creatinine Clearance 155.39 ml/min; Glucose 134 mg/dL (70-110); Potassium 3.3 mmol/L (3.5-5.1); Sodium Level 138 mmol/L (136-145)
[2017-10-14] MEDS: guaiFENesin 1,200 MG Tablet 1200 MG PO (09:48)
[2017-10-14] MEDS: Famotidine 20 MG Tablet PO (09:48)
[2017-10-14] MEDS: 0.9% NaCl Peripheral Flush Adult/Peds IV (09:48)
[2017-10-14] MEDS: Ceftriaxone 1 GM/50 ML BAG IV (09:48)
[2017-10-14] MEDS: Enoxaparin 40 MG/0.4 ML Syringe SC (09:49)
[2017-10-14] MEDS: FLUoxetine 10 MG Capsule PO (09:49)
--- NOTE | 2017-10-14 10:54 | PCM.DC ---
- Discharge Diagnoses Current Active Problems: Current Active and Chronic Problems MIKE (obstructive sleep apnea) (Chronic) Recent sleep study, new CPAP machine on order. HLD (hyperlipidemia) (Chronic) Obesity (BMI 30-39.9) (Chronic) Diabetes mellitus, type II (Chronic) Anxiety and depression (Chronic) Reason(s) for Visit for Discharge Instructions: Shortness of breath You will use the following diet at home:: Calorie/Carbohydrate Controlled (specify 1200, 1400, etc), Cardiac Your food should be the consistency of: Regular Your liquids should be the consistency of: Regular/Thin Discharge Activity: Return to Normal Activity Additional Instructions: You will be discharged on oxygen. Wear your oxygen at all times. You need to complete your antibiotics. Continue to use your CPAP at night. Follow-up with manager security and primary care in outpatient. You will need repeat blood work in 3 days. Allergies/Adverse Reactions: Allergies metoclopramide [From Reglan] Allergy (Verified 10/10/17 18:53) weirds me out sertraline [From Zoloft] Allergy (Verified 10/10/17 18:53) sexual side effects topiramate [From Topamax] Allergy (Verified 10/10/17 18:53) Unknown can't remember Medications to take at Discharge Esomeprazole Mag Trihydrate [Nexium] 40 mg PO DAILY 10/10/17 Fenofibrate [Lipofen] 54 mg PO DAILY 10/10/17 Fluoxetine [Prozac] 10 mg PO DAILY 10/10/17 Fluticasone 0.05% [Flonase Nasal [place]] 1 spray NARES DAILY 10/10/17 Metformin HCl [Glucophage] 500 mg PO DAILY 10/10/17 Multivitamin [Multiple Vitamins] 1 each PO DAILY 10/10/17 Albuterol IH (ProAir) [Proair Hfa] 1 puff INHALATION Q4H PRN PRN #1 inhaler 10/14/17 Guaifenesin [Mucinex] 1,200 mg PO BID #14 tablet 10/14/17 Levofloxacin [Levaquin] 750 mg PO DAILY #7 tablet 10/14/17 The following prescriptions were given: Albuterol IH (ProAir) [Proair Hfa] 1 puff INHALATION Q4H PRN PRN #1 inhaler PRN Reason: Shortness Of Breath Levofloxacin [Levaquin] 750 mg PO DAILY #7 tablet Guaifenesin [Mucinex] 1,200 mg PO BID #14 tablet Orders to be completed after discharge: Basic Metabolic Profile (BMP) Location: Laboratory Primary Care Physician: Humberto Dos Santos MD [Primary Care Provider] - Please follow up with your Primary Care Physician in: within 2 weeks Please Follow Up With: Doroteo Lenz DO When: within 2 weeks of discharge Proposed Discharge Date: 10/14/17
--- NOTE | 2017-10-14 10:59 | DCINST_ITS ---
- Discharge Diagnoses Current Active Problems: Current Active and Chronic Problems MIKE (obstructive sleep apnea) (Chronic) Recent sleep study, new CPAP machine on order. HLD (hyperlipidemia) (Chronic) Obesity (BMI 30-39.9) (Chronic) Diabetes mellitus, type II (Chronic) Anxiety and depression (Chronic) Reason(s) for Visit for Discharge Instructions: Shortness of breath You will use the following diet at home:: Calorie/Carbohydrate Controlled ( specify 1200, 1400, etc), Cardiac Your food should be the consistency of: Regular Your liquids should be the consistency of: Regular/Thin Discharge Activity: Return to Normal Activity Additional Instructions: You will be discharged on oxygen. Wear your oxygen at all times. You need to complete your antibiotics. Continue to use your CPAP at night. Follow-up with chemical blender and primary care in outpatient. You will need repeat blood work in 3 days. Allergies/Adverse Reactions: Allergies metoclopramide [From Reglan] Allergy (Verified 10/10/17 18:53) weirds me out sertraline [From Zoloft] Allergy (Verified 10/10/17 18:53) sexual side effects topiramate [From Topamax] Allergy (Verified 10/10/17 18:53) Unknown can't remember Medications to take at Discharge Esomeprazole Mag Trihydrate [Nexium] 40 mg PO DAILY 10/10/17 Fenofibrate [Lipofen] 54 mg PO DAILY 10/10/17 Fluoxetine [Prozac] 10 mg PO DAILY 10/10/17 Fluticasone 0.05% [Flonase Nasal [place]] 1 spray NARES DAILY 10/10/17 Metformin HCl [Glucophage] 500 mg PO DAILY 10/10/17 Multivitamin [Multiple Vitamins] 1 each PO DAILY 10/10/17 Albuterol IH (ProAir) [Proair Hfa] 1 puff INHALATION Q4H PRN PRN #1 inhaler 03/26 Guaifenesin [Mucinex] 1,200 mg PO BID #14 tablet 10/14/17 Levofloxacin [Levaquin] 750 mg PO DAILY #7 tablet 10/14/17 The following prescriptions were given: Albuterol IH (ProAir) [Proair Hfa] 1 puff INHALATION Q4H PRN PRN #1 inhaler PRN Reason: Shortness Of Breath Levofloxacin [Levaquin] 750 mg PO DAILY #7 tablet Guaifenesin [Mucinex] 1,200 mg PO BID #14 tablet Orders to be completed after discharge: Basic Metabolic Profile (BMP) Location: Laboratory Primary Care Physician: Humberto Dos Santos MD [Primary Care Provider] - Please follow up with your Primary Care Physician in: within 2 weeks Please Follow Up With: Doroteo Lenz DO When: within 2 weeks of discharge Proposed Discharge Date: 10/14/17
--- NOTE | 2017-10-14 11:02 | DS.PCM_ITS ---
Discharge Date and Diagnosis Date of Admission: 10/10/17 Date of Discharge: 10/14/17 - Primary Discharge Diagnosis Shortness of breath Community acquired pneumonia - Secondary Discharge Diagnosis Chronic Problems MIKE (obstructive sleep apnea) (Chronic) Recent sleep study, new CPAP machine on order. HLD (hyperlipidemia) (Chronic) Obesity (BMI 30-39.9) (Chronic) Diabetes mellitus, type II (Chronic) Anxiety and depression (Chronic) Hospital Course and Treatment Imaging Results: Clinical Impression(s) from Imaging Studies Chest X-Ray 10/10/17 15:08 IMPRESSION: Normal x-ray examination of the chest. Electronically Signed: Jaime Amaya MD at 16:45 EST , Service support , Chest X-Ray 10/11/17 07:09 IMPRESSION: Infiltration in the left lower lobe. There is blunting of the left costophrenic angle. Increased markings at the right lung base. Electronically Signed: Dmitry Murguia MD at 11:26 EST Tel [phone], Service support , Chest CTA 10/11/17 09:30 IMPRESSION: Bibasilar consolidation with airspace disease. Diffuse fatty infiltration of the liver. Electronically Signed: Dmitry Murguia MD at 11:25 EST Tel [phone], Service support , Audiology Assistant Operations: None Procedures: None Summary of Care Provided: 41-year-old male with past medical history of obesity, MIKE, type 2 DM, chronic migraine headaches admitted with complaints of shortness of breath with associated cough, fever and chills ongoing for 3 days. Patient was recently diagnosed with pneumonia and treated with IV antibiotics in [facility], and discharged on oral doxycycline. He came into the ED when he was very short of breath and found to have SPO2 of 89% on room air. Patient has since been admitted to the ICU and managed on BiPAP. 1. Acute hypoxic respiratory failure secondary to bilateral lower lobe pneumonia, on BiPAP, initially managed in the ICU, improved on BiPAP, was transitioned to nasal cannula oxygen, urine streptococcal and Legionella antigen , Influenza and respiratory panel negative. Initially on ceftriaxone and azithromycin with improvement, discharged on Levaquin. 2. Acute migraine in a patient with history of chronic headaches, improved 3. Type 2 diabetes, blood sugars are stable, sugars were stable on insulin sliding scale, would resume metformin on discharge 4. Morbid Obesity: weight loss and lifestyle changes encouraged 5. Dyslipidemia on fenofibrate 6. Depression, on Prozac 7. MIKE 8. GERD, on famotidine Discharge Diet: Low fat/ Low Cholesterol, 2000 mg Sodium Diet, Carb Control Diet Discharge Activity: Return to Normal Activity Home Medications: Medications to take at Discharge Esomeprazole Mag Trihydrate [Nexium] 40 mg PO DAILY 10/10/17 Fenofibrate [Lipofen] 54 mg PO DAILY 10/10/17 Fluoxetine [Prozac] 10 mg PO DAILY 10/10/17 Fluticasone 0.05% [Flonase Nasal [place]] 1 spray NARES DAILY 10/10/17 Metformin HCl [Glucophage] 500 mg PO DAILY 10/10/17 Multivitamin [Multiple Vitamins] 1 each PO DAILY 10/10/17 Albuterol IH (ProAir) [Proair Hfa] 1 puff INHALATION Q4H PRN PRN #1 inhaler 03/26 Guaifenesin [Mucinex] 1,200 mg PO BID #14 tab 10/14/17 Levofloxacin [Levaquin] 750 mg PO DAILY #7 tab 10/14/17 Following Prescrptions Were Given to Patient: Albuterol IH (ProAir) [Proair Hfa] 1 puff INHALATION Q4H PRN PRN #1 inhaler PRN Reason: Shortness Of Breath Levofloxacin [Levaquin] 750 mg PO DAILY #7 tab Guaifenesin [Mucinex] 1,200 mg PO BID #14 tab Other Amb Orders: Basic Metabolic Profile (BMP) Location: Laboratory Primary Care Physician: Humberto Dos Santos MD [Primary Care Provider] - Please follow up with your Primary Care Physician in: within 2 weeks Please Follow Up With: Doroteo Lenz DO When: within 2 weeks of discharge Disposition: Home Minutes spent on discharge:: 25 Patient Condition:: Stable Meaningful Use Info Meaningful Use Diagnoses (Choose all that apply): None applicable Code Visit Inpatient E&M: 66175 Disch Hosp
[2017-10-14 11:25] LABS: Bedside Glucose 168 mg/dL (70-110)
--- NOTE | 2017-10-14 12:39 | CASEMGMT ---
KENNEY ESTEBAN notified of patient's need for home oxygen. Order faxed by pediatric acute care unit nurse. KENNEY ESTEBAN called [employer] to provide referral and faxed documentation to [phone].
--- NOTE | 2017-10-14 13:00 | CASEMGMT ---
KENNEY ESTEBAN notified by Werner with [employer], he is on his way to deliver oxygen from [employer]. KENNEY ESTEBAN notified charge nurse, Federica, that oxygen is on it's way.
== END 2017-10-14 15:52 | disposition home or self-care (01) | DRG 871 ==
LOC: ED 16:08 → ICU 18:21 → MS3 10-12 12:03
PROVIDERS: Internal Medicine Critical Care Medicine; Admitting Provider Family Medicine; Emergency Provider Emergency Medicine; Family Provider Family Medicine; PCP Family Medicine; Visit Provider Internal Medicine
DX: A41.9 Sepsis, unspecified organism (principal); J18.9 Pneumonia, unspecified organism; J96.01 Acute respiratory failure with hypoxia; E11.9 Type 2 diabetes mellitus without complications; E78.5 Hyperlipidemia, unspecified; G47.33 Obstructive sleep apnea (adult) (pediatric); G43.909 Migraine, unspecified, not intractable, without status migrainosus; K21.9 Gastro-esophageal reflux disease without esophagitis; F32.9 Major depressive disorder, single episode, unspecified; F41.9 Anxiety disorder, unspecified; E66.01 Morbid (severe) obesity due to excess calories; Z68.37 Body mass index [BMI] 37.0-37.9, adult; Z79.84 Long term (current) use of oral hypoglycemic drugs; Z79.899 Other long term (current) drug therapy
CPT/HCPCS: 36415; 36600; 71045; 71275; 80048; 80053; 81001; 82803; 82962; 83605; 85025; 85610; 85730; 87040; 87070; 87086; 87205; 87449; 87633; 87641; 87804; 93005; 94002; 94003; 94640; 94667; 94668; 99283; J7030; Q9967; A4216; J0696; J2405; J3030

== ENCOUNTER → 2017-11-08 08:59 | Outpatient (CLI) | payer OTHER, SELFPAY ==
[2017-11-08 09:00] VITALS: PULSE 100; PULSE 105; PULSE 106; PULSE 91; PULSE 98; O2SAT 96; O2SAT 97; O2SAT 98
--- NOTE | 2017-11-08 09:30 | CPS ---
Addendum entered by Diane Joel 11/08/17 09:32: Original Note: PT ARRIVED ON ROOM AIR. HAD HOME O2 WITH HIM. WALKED ENTIRE WALK ON ROOM AIR. PT NOTED TO BE VERY SOB THROUGHOUT TEST.
--- NOTE | 2017-11-08 11:58 | WT_ITS ---
PSN 6 Minute Walk Test - 6 Minute Walk Test 6 Minute Walk Test: 6 Minute Walk Test PSN:6-Minute Walk Test Start: 11/08/17 09: 24 Freq: Status: Active Protocol: RESP.6MINW Document 11/08/17 09:00 EW (Rec: 11/08/17 09:32 EW [id number]) 6 Minute Walk Test Date Performed 11/08/17 Time Performed 09:00 Height 6 ft 4 in Weight: 280 lb Weight in Pounds 280.[address]: Janel Klein Assistive device used: None Pre-test Oxygen Delivery Method Room Air Pulse Ox (%) 97 Pulse Rate (60-100 beats/min) 106 H Dyspnea Savanna Scale (0-10) 3 Exertion Savanna Scale (6-20) 8 1st minute Oxygen Delivery Method Room Air Pulse Ox (%) 98 Pulse Rate (60-100 beats/min) 98 2nd minute Oxygen Delivery Method Room Air Pulse Ox (%) 97 Pulse Rate (60-100 beats/min) 91 3rd minute Oxygen Delivery Method Room Air Pulse Ox (%) 96 Pulse Rate (60-100 beats/min) 105 H Reported Symptoms Increased Work of Breathing 4th minute Oxygen Delivery Method Room Air Pulse Ox (%) 98 Pulse Rate (60-100 beats/min) 105 H Reported Symptoms Increased Work of Breathing 5th minute Oxygen Delivery Method Room Air Pulse Ox (%) 97 Pulse Rate (60-100 beats/min) 100 Reported Symptoms Increased Work of Breathing 6th minute Oxygen Delivery Method Room Air Pulse Ox (%) 97 Pulse Rate (60-100 beats/min) 106 H Post-test Oxygen Delivery Method Room Air Pulse Ox (%) 98 Pulse Rate (60-100 beats/min) 91 Dyspnea Savanna Scale (0-10) 4 Exertion Savanna Scale (6-20) 13 Full Laps Walked 20 Partial Lap, Number of Tiles Walked 33 Total Distance Walked (ft) 1213 11/08/17 09:30 Cardiopulmonary Services by Diane Joel Addendum entered by Diane Joel 11/08/17 09:32: Original Note: PT ARRIVED ON ROOM AIR. HAD HOME O2 WITH HIM. WALKED ENTIRE WALK ON ROOM AIR. PT NOTED TO BE VERY SOB THROUGHOUT TEST. Initialized on 11/08/17 09:30 - END OF NOTE - Interpretation Interpretation: The patient ambulated 1213 feet over the course of 6 minutes on room air without assistive devices or breaks. Pretesting oxygen saturation was noted to be 97% on room air. With ambulation, the carrie oxygen saturation was 96%. There was no significant exertional oxygen desaturation noted. - Recommendations Recommendations: There is no indication for the use of supplemental oxygen at this time.
== END ==
PROVIDERS: Family Provider Family Medicine; PCP Family Medicine; Visit Provider Nurse Practitioner Acute Care
DX: R06.02 Shortness of breath (principal)
CPT/HCPCS: 94618

== ENCOUNTER → 2017-11-16 09:58 | Outpatient (CLI) | payer OTHER, SELFPAY ==
--- NOTE | 2017-11-17 10:50 | PFTCOMP ---
COMPLETE PULMONARY FUNCTION TEST INTERPRETATION Brief HPI: Patient is a 41 year old male, currently under the care of Janel Klein, who presents to [facility] for complete pulmonary function tests secondary to diagnosis of acute respiratory failure. Respiratory therapist reports good effort and reproducible results. Interpretation: Forced expiration spirometry shows no large airways obstructive ventilatory defect with an FEV1 of 99 % predicted. There is no significant bronchodilator response by ATS criteria. Spirograms are of good quality and plateau normally. The respiratory flow volume loop shows a normal pattern. Lung volumes by body plethysmography show a decreased total lung capacity at 6.78 L, 86 % predicted. All other lung volumes are reduced symmetrically. Diffusion capacity by carbon monoxide is decreased at 72 % predicted. The airway resistance is normal. No previous pulmonary function tests were available for review. Impression: Mild restrictive ventilatory defect with symmetric reduction diffusing capacity consistent with possible interstitial lung disease.
== END ==
PROVIDERS: Family Provider Family Medicine; PCP Family Medicine; Visit Provider Nurse Practitioner Acute Care
DX: J96.00 Acute respiratory failure, unspecified whether with hypoxia or hypercapnia (principal)
CPT/HCPCS: 94060; 94726; 94729

== ENCOUNTER → 2017-12-06 06:53 | Outpatient (CLI) | payer OTHER, SELFPAY ==
--- NOTE | 2017-12-06 06:55 | CT_ITS ---
STUDY: CT CHEST WITHOUT CONTRAST REASON FOR EXAM: Male, 41 years old. History of recent pneumonia. Follow-up examination. RADIATION DOSAGE (If Supplied By Facility): CTDIvol = ( 20.00 ) mGy, DLP = ( 699.50 ) mGycm TECHNIQUE: Transaxial imaging was performed without the administration of intravenous contrast material. Multiplanar coronal and sagittal images were reformatted. Individualized dose optimization techniques were used for this CT. COMPARISON: Comparison is made with prior examination dated October 11, 2017. FINDINGS: There is a 2.2 cm hypodense nodule in the inferior anterior aspect of the right lobe of the thyroid. The previously seen infiltrations at both lung bases have resolved. There now is evidence of a 6.4 mm well-defined noncalcified nodule in the anterior aspect of the right lower lobe abutting the right minor fissure as seen on axial image #53. There is no demonstrated pleural abnormality. Normal heart and pericardium. Normal mediastinum. Normal hilar regions. Normal unenhanced pulmonary arteries. Normal aorta arch and descending thoracic aorta. Normal osseous structures. Diffuse fatty infiltration of the liver. CT/Chest without Contrast IMPRESSION: The previously seen consolidation in both lower lobes has resolved. 6.4 mm noncalcified nodule in the anterior aspect of the right lower lobe adherent to the minor fissure. A 12 month follow-up examination is recommended. Electronically Signed: Dmitry Murguia MD at 13:30 EST Tel [phone], Service support ,
== END ==
PROVIDERS: Family Provider Family Medicine; PCP Family Medicine; Visit Provider Internal Medicine Critical Care Medicine
DX: R93.8 Abnormal findings on diagnostic imaging of other specified body structures (principal)
CPT/HCPCS: 71250

== ENCOUNTER → 2018-03-28 14:30 | Outpatient (CLI) | payer OTHER, SELFPAY ==
--- NOTE | 2018-03-28 | ASPS_PTH ---
PATIENT: BIANCA DELAROSA LOC: PATI U#:[id number] AGE/SX: 49/M ROOM: RE03/28/[address]: Dr. True Lazaro MD : 1975 BED: DIS: SPEC #: [id number] RECD: 03/29/18 11:32 STATUS: SUGAR JULITA #: [id number] SANCHEZ: 03/28/18 00:[address]: True Lazaro DEPT: CYTOLOGY RECD BY: Sinan Suarez ENTERED: 03/29/18 11:33 SP TYPE: ASPIRATION OTHR DR: Dr. Humberto Dos Santos MD Tissues: Thyroid gland, NOS Procedures: Pap Stain (control) Special Stain Group II Cytology Other HEADER OPERATION: Right thyroid FNA PRE-OP DIAGNOSIS: Multiple thyroid nodules TISSUE SUBMITTED: Right thyroid slides (4) DIAGNOSIS CYTOLOGY Right thyroid nodule, FNA (smears): Consistent with benign colloid nodule. See cytology study and comment. SJ:ross 03/30/18 COMMENT Correlation with clinical, radiologic findings and appropriate follow up are necessary. CYTOLOGY STUDY Slides are reviewed. The specimen is adequate for evaluation. The specimen consists of benign follicular cells, colloid and lymphocytes. CYTOLOGY GROSS Received are four smears labeled with the patient's name and designated per the requisition as right thyroid. Submitted for staining. / CHEO:ross 03/29/18 TC:5 CPT: 29296
== END ==
PROVIDERS: Family Provider Family Medicine; PCP Family Medicine; Visit Provider Surgery
DX: E04.2 Nontoxic multinodular goiter (principal)
CPT/HCPCS: 88161; 88313

== ENCOUNTER → 2018-05-21 20:00 | Outpatient (CLI) | payer OTHER, SELFPAY | PROVIDERS: Family Provider Family Medicine; PCP Family Medicine; Visit Provider Clinical Nurse Specialist Acute Care | DX: G47.33 Obstructive sleep apnea (adult) (pediatric) (principal); G47.419 Narcolepsy without cataplexy | CPT/HCPCS: 95811 ==

== ENCOUNTER 2018-10-20 21:21 | Observation (INO) | payer OTHER, SELFPAY ==
[2018-03-22 08:12] VITALS: BMI 36.2
[2018-10-20 21:31] VITALS: BMI 38.5
[2018-10-20 21:36] VITALS: BP 148/90; PULSE 78; RESP 16; TEMP 36.4; O2SAT 97
--- NOTE | 2018-10-20 22:03 | PCM.HP.STD ---
Problem List (1) Chest pain Status: Acute (2) Multiple thyroid nodules Status: Chronic History of Present Illness Date of Admission: 10/20/18 Chief Complaint: chest pain The patient is a 42 year old M with a significant history of morbid obesity; diabetes mellitus; obstructive sleep apnea; depression; anxiety and migraine who presented with 1 day history of chest pain. Her chest pain is located on his substernal area and also to his left breast. His chest severity is 5 out of 10. His chest pain started on the day of admission and it persisted. The chest pain radiates to his left neck and to his left shoulder to his upper back. It radiates to his left arm. He described his left arm pain as numbness and tingling. He describes chest pain as pressure, heaviness and stabbing pain. He reported his chest pain as somebody stabbing him from the chest to the back. He was transferred from [place] emergency department to our hospital because of his preference. He reported that his noticed that he was short of breath with chest pain. He denies any nausea; vomiting or diaphoresis. She reported that 3 days ago he had the same chest pain that lasted for about 30 minutes and resolved with walking. However he reported that at emergency department at [place] he was given nitroglycerin. And after receiving nitroglycerin he became dizzy; lightheaded and nauseous. The nitroglycerin helped improve his pain from a 5 to a 2. He denies any aggravating factor to his chest pain. Patient received aspirin at [facility]. Initial troponin at [facility] was unremarkable. His chest x-ray reported from [facility] was unremarkable. EKG obtained at [facility] showed left ventricular hypertrophy with nonspecific T wave abnormalities. He reported that his father at age 47 was told that he had a heart attack while undergoing colon cancer screening. His mother had heart attack in her 50s. Past Medical History Past Medical History (Chronic Problems): Chronic Problems (Last Reviewed 10/20/18 @ 22:51 by Alejandro Padgett MD) Multiple thyroid nodules (Chronic) Restrictive airway disease (Chronic) MIKE (obstructive sleep apnea) (Chronic) on autopap, treated by [facility] neurology HLD (hyperlipidemia) (Chronic) Obesity (BMI 30-39.9) (Chronic) Diabetes mellitus, type II (Chronic) Anxiety and depression (Chronic) Medical History: Medical History (Last Reviewed 10/20/18 @ 22:51 by Alejandro Padgett MD) Multiple thyroid nodules (Acute) E04.2 Restrictive airway disease (Chronic) J98.[address] (Inactive) R93.8 Pneumonia (Resolved) J18.9 Acute respiratory failure (Inactive) J96.00 MIKE (obstructive sleep apnea) (Chronic) G47.33 on autopap, treated by [facility] neurology HLD (hyperlipidemia) (Chronic) E78.5 Obesity (BMI 30-39.9) (Chronic) E66.9 Diabetes mellitus, type II (Chronic) E11.9 Anxiety and depression (Chronic) F41.8 Acute respiratory failure with hypoxia J96.01 secondary to suspected LLL PNA and Suspected Acute Viral Syndrome Community acquired pneumonia J18.9 Shortness of breath R06.02 Chronic headache R51 GERD (gastroesophageal reflux disease) K21.9 Allergies citalopram Allergy (Unknown, Verified 10/20/18 21:40) Unknown venlafaxine Allergy (Unknown, Verified 10/20/18 21:40) Unknown metoclopramide [From Reglan] Allergy (Verified 10/20/18 21:40) weirds me out sertraline [From Zoloft] Allergy (Verified 10/20/18 21:40) sexual side effects topiramate [From Topamax] Allergy (Verified 10/20/18 21:40) Unknown can't remember Home Medications: Ambulatory Orders Medication Instructions Recorded Esomeprazole Mag Trihydrate 40 mg PO QHS 10/10/17 [Nexium] Fenofibrate [Lipofen] 54 mg PO DAILY 10/10/17 Multivitamin [Multiple Vitamins] 1 ea PO DAILY 10/10/17 atorvastatin 20 mg tablet 20 mg PO DAILY 03/22/18 fluoxetine 40 mg capsule 60 mg PO QDAY 03/22/18 metformin 500 mg tablet 1,000 mg PO BID tab 03/22/18 Doxepin HCl [Sinequan] 10 mg PO QHS 10/20/18 Fish Oil 1,000 mg Capsule 1,000 mg PO BID 10/20/18 Magnesium 250 mg PO BID 10/20/18 Olanzapine [Zyprexa] 2.5 mg PO QHS 10/20/18 Riboflavin (Vitamin B2) [Vitamin 100 mg PO BID 10/20/18 B-2] Zonisamide [Zonegran] 25 mg PO DAILY 10/20/18 Surgical History: Surgical History (Last Reviewed 10/20/18 @ 22:51 by Alejandro Padgett MD) Hx of appendectomy (Inactive) Z90.49 2001 Hx of tonsillectomy (Inactive) Z90.89 1977 Surgical History: appendectomy, tonsillectomy Psychiatric History: Anxiety, Depression Smoking Status: Never smoker - *Family History Maternal Family History: Family History (Last Reviewed 10/20/18 @ 22:51 by Alejandro Padgett MD) Father Colon cancer Heart disease Myocardial infarction History Items: - - Maternal family history of heart disease, coronary disease with earliest heart attack at age 50. Paternal Family History: Family History (Last Reviewed 10/20/18 @ 22:51 by Alejandro Padgett MD) Father Colon cancer Heart disease Myocardial infarction History Items: - - Father with history of colon cancer as well as heart disease with history of LA. Review of Systems Constitutional: Denies: Chills, Fever, Weight Change HEENT: Denies: Head Aches, Sinus Congestion, Sinus Drainage Cardiovascular: Reports: Chest Pain. Denies: Palpitations Respiratory: Reports: Shortness of Breath. Denies: Cough Gastrointestinal: Reports: Nausea - After getting nitroglycerin. Denies: Abdominal Pain, Vomiting Genitourinary: Denies: Dysuria Musculoskeletal: Reports: Arm Pain - Left arm, Back Pain. Denies: Joint Pain, Joint Tenderness Skin: Denies: Rash, Wounds Neurological: Denies: Numbness, Tingling, Focal weakness Psychiatric: Denies: Anxiety, Depression, Homicidal Ideations, Suicidal Ideations Hematologic/ Lymphatic: Denies: Easy Bruising, Easy Bleeding VTE Information - Inpt Only VTE Present on Admission: No VTE Mechan Device Prophylaxis: None VTE Pharm Prophylaxis ordered?: Yes Patient Problems: Active and Suspected Problems (Last Reviewed 10/20/18 @ 22:51 by Alejandro Padgett MD) Chest pain (Acute) - Physical Exam General: Alert, Oriented x3, Cooperative HEENT: Atraumatic, PERRLA, EOMI, Normocephalic Neck: Supple, No JVD, Negative Carotid Bruits Lungs: Clear to auscultation, Normal air movement Cardiovascular: Regular rate, No murmurs Abdomen: Bowel Sounds Present, Soft, Non Tender Extremities: No edema, Capillary Refill Less than 3 Seconds Skin: No rashes, No breakdown Musculoskeletal: No Tenderness to Palpation of Joints or Extremities Neurological: Neuro grossly intact Psych/Mental Status: Normal Affect, Appropriate Vital Signs Temp Pulse Resp BP Pulse Ox 97.5 F L 78 16 148/90 H 97 10/20/18 21:36 10/20/18 21:36 10/20/18 21:36 10/20/18 21:36 10/20/18 21:36 Oxygen Delivery Method Room Air Weight: 136 kg Body Mass Index (BMI) 38.5 Assessment/Plan All Active Problems (Last Reviewed 10/20/18 @ 22:51 by Alejandro Padgett MD) Chest pain (Acute) Pneumonia (Resolved) The patient is a 42 year old M with a significant history of morbid obesity; diabetes mellitus; obstructive sleep apnea; depression; anxiety and migraine; and with a family history of heart attack who presented with typical chest pain. Chest pain Admit to a monitored bed on PCU CXR independently reviewed confirms no acute cardiopulmonary process. EKG independently reviewed confirms left ventricular hypertrophy with aVL of 15 and with nonspecific T wave abnormalities. Received aspirin 325 mg at [facility] ASA 81 mg p.o. daily Because of lightheadedness nausea and dizziness will not order nitroglycerin. Morphine as needed for pain We will check lipid panel. Will change his home Lipitor 20 mg to high intensity statin Lipitor 80 mg daily we will hold fenofibrate at this time. Serial cardiac enzymes Stat EKG as needed for chest pain Patient is agreeable to treadmill stress test on 10/22/2018. Diabetes mellitus Blood glucose on BMP obtained at [facility] was within goal. Patient is on home metformin. Since it is too early in his admission we will hold metformin for now especially as a positive stress test may lead to heart cath with contrast. Put patient on correction scale insulin as needed. Depression and anxiety Fluoxetine; doxepin and Doxepin continued Chronic migraine: zonisamide continued Obstructive sleep apnea: At home he use auto adjustable machine. BiPAP while here. DVT prophylaxis: Lovenox ordered Code Visit Inpatient E&M: 40989 Init Hosp L3
--- NOTE | 2018-10-20 22:47 | EKG12_ITS ---
Test Reason : CP ADMIT Blood Pressure : / mmHG Vent. Rate : 067 BPM Atrial Rate : 067 BPM P-R Int : 196 ms QRS Dur : 114 ms QT Int : 416 ms P-R-T Axes : 031 -17 026 degrees QTc Int : 439 ms Normal sinus rhythm Voltage criteria for left ventricular hypertrophy Abnormal ECG When compared with ECG of 10-OCT-2017 15:12, Vent. rate has decreased BY 47 BPM Confirmed by CARLEE TOLEDO, MARLYS ([id number]), assignment editor CHEIKH BUSTILLO ([id number]) on 10/23/2018 5:32:09 PM Referred By: DR SCHILLING Confirmed By:MARLYS BEJARANO MD
[2018-10-20 22:52] VITALS: PULSE 70
[2018-10-20] MEDS: Insulin Lispro 100 UNIT/ML INSULN.PEN SQ (23:32)
[2018-10-20] MEDS: Atorvastatin Calcium 20 MG Tablet 60 MG PO (23:32)
[2018-10-20 23:41] LABS: Bedside Glucose 163 mg/dL (70-110)
[2018-10-21] VITALS (13 sets, daily range): BP systolic 122–145; BP diastolic 72–88; PULSE 64–98; RESP 16; TEMP 36.6–36.9; O2SAT 94–95
[2018-10-21 06:52] LABS: Cholesterol 128 mg/dL (200); High Density Lipoprotein 28 mg/dL; Triglycerides 224 mg/dL; Very Low Density Lipoprotein 45 mg/dL (5-40)
[2018-10-21 06:56] LABS: Bedside Glucose 159 mg/dL (70-110)
--- NOTE | 2018-10-21 09:10 | NURSING ---
PT UP IN CHAIR HAVING BREAKFAST, DENIES NEEDS. CALL LIGHT WITHIN REACH.
[2018-10-21] MEDS: Magnesium Oxide 400 MG Tablet 200 MG PO ×2 (09:21→22:25)
[2018-10-21] MEDS: Aspirin E.C. 81 MG Tablet PO (09:22)
[2018-10-21] MEDS: Omega-3 Acid Ethyl Esters 1 GM Capsule PO ×2 (09:22→22:25)
[2018-10-21] MEDS: FLUoxetine 20 MG Capsule 60 MG PO (09:22)
--- NOTE | 2018-10-21 11:10 | PCM.PN.HOSP ---
Patient Problems: Active and Suspected Problems (Last Reviewed 10/20/18 @ 22:51 by Alejandro Padgett MD) Chest pain (Acute) Subjective: Patient seen and examined. He was admitted with a complaint of chest pain. He was admitted for chest pain to rule out ACS. Patient has no complaints this morning. Chest pain did not recur overnight. He says he has had chest pain like this in the past but it resolved on its own. He has a strong family history of heart disease and is also diabetic. He says he has not been under stress recently though he states last there was a very difficult and stressful year for him. Labs and vitals reviewed. Vitals/I&O's: Vital Signs Temp Pulse Resp BP Pulse Ox 97.8 F 77 16 127/72 H 94 10/21/18 09:34 10/21/18 09:34 10/21/18 09:34 10/21/18 09:34 10/21/18 09:36 Oxygen Delivery Method Room Air Weight: 299 lb 13.259 oz Body Mass Index (BMI) 38.5 Intake and Output for Last 24 Hours 10/19/18 10/20/18 10/21/18 23:59 23:59 23:59 Intake Total 240 / 240 Balance 240 / 240 General: Alert, Oriented x3, Cooperative, No apparent distress HEENT: Atraumatic, PERRLA, EOMI, Normocephalic Oral: Moist Mucosa Neck: Supple, No JVD, Negative Carotid Bruits Lungs: Clear to auscultation, Normal air movement, No rhonchi, No wheeze, No rales Cardiovascular: Regular rate, Regular Rhythm, Normal S1, Normal S2, No murmurs Abdomen: Bowel Sounds Present, Soft, Non Tender, Non-Distended, No Hepato-splenomegaly Extremities: No clubbing, No cyanosis, No edema, Capillary Refill Less than 3 Seconds Skin: No rashes, No breakdown Musculoskeletal: No Tenderness to Palpation of Joints or Extremities Lymphatic: No Cervical, Supraclavicular, or Inguinal Adenopathy Neurological: Cranial nerves II-XII grossly intact, Neuro grossly intact, Motor Exam 5/5 strength throughout Psych/Mental Status: Normal Affect, Appropriate, Alert and oriented to time, place, person, mood and affect Laboratory Results 10/20/18 22:00: Troponin I < 0.015 10/20/18 23:31: POC Glucose 163 H 10/21/18 00:30: Troponin I < 0.015 10/21/18 04:15: Troponin I < 0.015, Triglycerides 224 H, Cholesterol 128, LDL Cholesterol 55, VLDL Cholesterol 45 H, HDL Cholesterol 28 L 10/21/18 06:44: POC Glucose 159 H Current Medications Aspirin (Ecotrin) 81 mg PO DAILY@0800 [facility] Last Admin: 10/21/18 09:22 Dose: 81 mg Atorvastatin Calcium (Lipitor) 80 mg PO QHS [facility] Dextrose (D50w Syringe) 0 gm IV X1 PRN; Protocol PRN Reason: Hypoglycemia Doxepin HCl (Sinequan) 10 mg PO QHS [facility] Enoxaparin Sodium (Lovenox) 40 mg SC DAILY@1000 [facility] Last Admin: 10/21/18 09:32 Dose: Not Given Fluoxetine HCl (Prozac) 60 mg PO DAILY [facility] Last Admin: 10/21/18 09:22 Dose: 60 mg Glucagon () 1 mg IM .X1 PRN PRN Reason: Hypoglycemia Sodium Chloride () 250 mls @ 15 mls/hr IV .[id number] PRN PRN Reason: SALINE FLUSH Insulin Human Lispro (Humalog Kwikpen (Bkc)) 0 unit SQ ACHS [facility]; Protocol Last Admin: 10/21/18 09:16 Dose: Not Given Magnesium Hydroxide (Milk Of Magnesia) 30 ml PO DAILY PRN PRN Reason: Constipation Magnesium Oxide (Mag-Ox 400) 200 mg PO BID [facility] Last Admin: 10/21/18 09:21 Dose: 200 mg Morphine Sulfate () 1 - 2 mg IV Q4H PRN PRN PRN Reason: PAIN Olanzapine (Zyprexa) 2.5 mg PO QHS [facility] [id number] Ethyl Esters (Lovaza) 1 gm PO BID [facility] Last Admin: 10/21/18 09:22 Dose: 1 gm Ondansetron HCl (Zofran) 4 mg IV Q8H PRN PRN PRN Reason: NAUSEA Pantoprazole Sodium (Protonix) 40 mg PO QHS [facility] Senna/Docusate Sodium (Senokot-S, Tressa-Colace) 2 tablet PO BID [facility] Last Admin: 10/21/18 09:32 Dose: Not Given Sodium Chloride () 5 - 15 ml IV UD PRN PRN Reason: SALINE FLUSH Zonisamide (Zonegran) 25 mg PO DAILY [facility] Last Admin: 10/21/18 09:33 Dose: Not Given Medical Necessity - Tobacco Use Smoking Status: Never smoker Assessment/Plan All Active Problems (Last Reviewed 10/20/18 @ 22:51 by Alejandro Padgett MD) Chest pain (Acute) Pneumonia (Resolved) 1. Chest pain, to rule out ACS troponinx x 3 were negative EKG showed LVF and nonspecific ST changes on aspirin, statin SL nitroglyceirn for stress test tomorrow 2. Diabetes mellitus: metformin on hold. ISS. Accuchecks ACHS 3. Depression and anxiety: on doxepin and fluoxetine and zyprexa 4. Chronic migraine: on zonisamide 5. MIKE: on BIPAP DVT prophylaxis: lovenox Code Visit Inpatient E&M: 96245 Subs Hosp L2
[2018-10-21] MEDS: Insulin Lispro 100 UNIT/ML INSULN.PEN SQ ×2 (11:12→22:26)
--- NOTE | 2018-10-21 11:14 | PN_ITS ---
Patient Problems: Active and Suspected Problems (Last Reviewed 10/20/18 @ 22:51 by Alejandro Padgett MD) Chest pain (Acute) Subjective: Patient seen and examined. He was admitted with a complaint of chest pain. He was admitted for chest pain to rule out ACS. Patient has no complaints this morning. Chest pain did not recur overnight. He says he has had chest pain like this in the past but it resolved on its own. He has a strong family history of heart disease and is also diabetic. He says he has not been under stress recently though he states last there was a very difficult and stressful year for him. Labs and vitals reviewed. Vitals/I&O's: Vital Signs Temp Pulse Resp BP Pulse Ox 97.8 F 77 16 127/72 H 94 10/21/18 09:34 10/21/18 09:34 10/21/18 09:34 10/21/18 09:34 10/21/18 09:36 Oxygen Delivery Method Room Air Weight: 299 lb 13.259 oz Body Mass Index (BMI) 38.5 Intake and Output for Last 24 Hours 10/19/18 10/20/18 10/21/18 23:59 23:59 23:59 Intake Total 240 / 240 Balance 240 / 240 General: Alert, Oriented x3, Cooperative, No apparent distress HEENT: Atraumatic, PERRLA, EOMI, Normocephalic Oral: Moist Mucosa Neck: Supple, No JVD, Negative Carotid Bruits Lungs: Clear to auscultation, Normal air movement, No rhonchi, No wheeze, No rales Cardiovascular: Regular rate, Regular Rhythm, Normal S1, Normal S2, No murmurs Abdomen: Bowel Sounds Present, Soft, Non Tender, Non-Distended, No Hepato- splenomegaly Extremities: No clubbing, No cyanosis, No edema, Capillary Refill Less than 3 Seconds Skin: No rashes, No breakdown Musculoskeletal: No Tenderness to Palpation of Joints or Extremities Lymphatic: No Cervical, Supraclavicular, or Inguinal Adenopathy Neurological: Cranial nerves II-XII grossly intact, Neuro grossly intact, Motor Exam 5/5 strength throughout Psych/Mental Status: Normal Affect, Appropriate, Alert and oriented to time, place, person, mood and affect Laboratory Results 10/20/18 22:00: Troponin I < 0.015 10/20/18 23:31: POC Glucose 163 H 10/21/18 00:30: Troponin I < 0.015 10/21/18 04:15: Troponin I < 0.015, Triglycerides 224 H, Cholesterol 128, LDL Cholesterol 55, VLDL Cholesterol 45 H, HDL Cholesterol 28 L 10/21/18 06:44: POC Glucose 159 H Current Medications Aspirin (Ecotrin) 81 mg PO DAILY@0800 [facility] Last Admin: 10/21/18 09:22 Dose: 81 mg Atorvastatin Calcium (Lipitor) 80 mg PO QHS [facility] Dextrose (D50w Syringe) 0 gm IV X1 PRN; Protocol PRN Reason: Hypoglycemia Doxepin HCl (Sinequan) 10 mg PO QHS [facility] Enoxaparin Sodium (Lovenox) 40 mg SC DAILY@1000 [facility] Last Admin: 10/21/18 09:32 Dose: Not Given Fluoxetine HCl (Prozac) 60 mg PO DAILY [facility] Last Admin: 10/21/18 09:22 Dose: 60 mg Glucagon () 1 mg IM .X1 PRN PRN Reason: Hypoglycemia Sodium Chloride () 250 mls @ 15 mls/hr IV .[id number] PRN PRN Reason: SALINE FLUSH Insulin Human Lispro (Humalog Kwikpen (Bkc)) 0 unit SQ ACHS [facility]; Protocol Last Admin: 10/21/18 09:16 Dose: Not Given Magnesium Hydroxide (Milk Of Magnesia) 30 ml PO DAILY PRN PRN Reason: Constipation Magnesium Oxide (Mag-Ox 400) 200 mg PO BID [facility] Last Admin: 10/21/18 09:21 Dose: 200 mg Morphine Sulfate () 1 - 2 mg IV Q4H PRN PRN PRN Reason: PAIN Olanzapine (Zyprexa) 2.5 mg PO QHS [facility] [id number] Ethyl Esters (Lovaza) 1 gm PO BID [facility] Last Admin: 10/21/18 09:22 Dose: 1 gm Ondansetron HCl (Zofran) 4 mg IV Q8H PRN PRN PRN Reason: NAUSEA Pantoprazole Sodium (Protonix) 40 mg PO QHS [facility] Senna/Docusate Sodium (Senokot-S, Tressa-Colace) 2 tablet PO BID [facility] Last Admin: 10/21/18 09:32 Dose: Not Given Sodium Chloride () 5 - 15 ml IV UD PRN PRN Reason: SALINE FLUSH Zonisamide (Zonegran) 25 mg PO DAILY [facility] Last Admin: 10/21/18 09:33 Dose: Not Given Medical Necessity - Tobacco Use Smoking Status: Never smoker Assessment/Plan All Active Problems (Last Reviewed 10/20/18 @ 22:51 by Alejandro Padgett MD) Chest pain (Acute) Pneumonia (Resolved) 1. Chest pain, to rule out ACS * troponinx x 3 were negative * EKG showed LVF and nonspecific ST changes * on aspirin, statin SL nitroglyceirn * for stress test tomorrow * 2. Diabetes mellitus: metformin on hold. ISS. Accuchecks ACHS 3. Depression and anxiety: on doxepin and fluoxetine and zyprexa 4. Chronic migraine: on zonisamide 5. MIKE: on BIPAP DVT prophylaxis: lovenox Code Visit Inpatient E&M: 97820 Subs Hosp L2
[2018-10-21 12:05] LABS: Bedside Glucose 256 mg/dL (70-110)
--- NOTE | 2018-10-21 15:35 | NURSING ---
Pt up ambulating in [place] with his family. Tolerating well.
[2018-10-21 16:26] LABS: Bedside Glucose 229 mg/dL (70-110)
[2018-10-21] MEDS: Doxepin Hydrochloride 10 MG Capsule PO (22:25)
[2018-10-21] MEDS: Pantoprazole Sodium 40 MG Tablet PO (22:25)
[2018-10-21] MEDS: OLANZapine 2.5 MG Tablet PO (22:26)
[2018-10-21] MEDS: Atorvastatin Calcium 80 MG Tablet PO (22:30)
[2018-10-21 23:40] LABS: Bedside Glucose 198 mg/dL (70-110)
[2018-10-22] VITALS (9 sets, daily range): BP systolic 120–133; BP diastolic 67–88; PULSE 67–87; RESP 16; TEMP 36.6–36.7; O2SAT 94–98
--- NOTE | 2018-10-22 05:55 | EKG12_ITS ---
Test Reason : AM EKG Blood Pressure : / mmHG Vent. Rate : 064 BPM Atrial Rate : 064 BPM P-R Int : 206 ms QRS Dur : 114 ms QT Int : 434 ms P-R-T Axes : 037 -11 061 degrees QTc Int : 447 ms Normal sinus rhythm Minimal voltage criteria for LVH, may be normal variant Borderline ECG When compared with ECG of 20-OCT-2018 23:45, MANUAL COMPARISON REQUIRED, DATA IS UNCONFIRMED Confirmed by CARLEE TOLEDO, MARLYS ([id number]), television news video editor CHEIKH BUSTILLO ([id number]) on 10/23/2018 5:30:38 PM Referred By: DR SILVER Confirmed By:MARLYS BEJARANO MD
[2018-10-22 06:25] LABS: Prothrombin Time (Protime)PT. 12.8 SECONDS (11.7-14.9)
[2018-10-22 06:34] LABS: Anion Gap 12 (5-15); BUN 16 mg/dL (7-18); Calcium,Total 8.3 mg/dL (8.5-10.1); Chloride 108 mmol/L (98-107); Creatinine, Serum 0.84 mg/dL (0.70-1.30); EST Glomerular Filtration Rate 105 mL/min (>60); Est Glom Filt Rate - Afr Amer 127 mL/min (>60); Estimated Creatinine Clearance 131.84 ml/min; Glucose 187 mg/dL (74-106); Potassium 3.9 mmol/L (3.5-5.1); Sodium Level 142 mmol/L (136-145)
[2018-10-22 06:36] LABS: Absolute Lymphocyte Count 2.88 X10^3/ul (0.83-4.51); Basophil# 0.03 X10^3/uL; Basophil% 0.5 % (0-1); Eosinophil# 0.16 X10^3/uL; Eosinophils% 2.5 % (0-5); Hematocrit 41.2 % (40-54); Hemoglobin 14.1 g/dl (13.0-16.5); Lymphocyte # 2.88 X10^3/ul (4.0); Lymphocyte % 44.6 % (19-41); Mean Corp Hgb Conc 34.2 g/gl (32-36); Mean Corpuscular Hgb 31.5 pg (27.0-32.0); Mean Corpuscular Volume 92.2 fL (80-94); Mean Platelet Vol. 12.7 fl (6.2-12.0); Monocyte# 0.42 X10^3/uL; Monocyte% 6.5 % (0-10); Neutrophil # 2.95 X10^3/uL (2.7-7.7); Neutrophil % 45.6 % (47-70); Platelet Count 226 K/mm3 (150-450); RBC Distribution Width CV 12.3 % (11.6-14.6); RBC Distribution Width SD 41.4 fl (35.1-43.9); Red Blood Count 4.47 M/mm3 (4.6-6.2); White Blood Count 6.5 K/mm3 (4.4-11.0)
[2018-10-22] MEDS: 0.9% NaCl Peripheral Flush Adult/Peds IV (06:46)
[2018-10-22] MEDS: Aspirin E.C. 81 MG Tablet PO (06:46)
[2018-10-22 06:55] LABS: Bedside Glucose 170 mg/dL (70-110)
[2018-10-22 07:12] LABS: POSITIVE COUNT NO; POSITIVE DIFFERENTIAL NO; POSITIVE MORPHOLOGY NO
--- NOTE | 2018-10-22 08:19 | NURSING ---
Pt resting quietly, denies needs. Will be going for stress test this AM.
--- NOTE | 2018-10-22 09:15 | NURSING ---
Pt taken down for stress test.
--- NOTE | 2018-10-22 10:16 | NURSING ---
Pt returned from stress test. Tolerated well.
[2018-10-22 10:55] LABS: Bedside Glucose 194 mg/dL (70-110)
--- NOTE | 2018-10-22 12:41 | STRESSREP ---
Stress Test Report Exercise myocardial perfusion stress test. 42-year-old man with a history of chest pain. Medications: Aspirin, Lipitor, Prozac, Protonix. Stress protocol: Resting EKG demonstrates normal sinus rhythm with a rate of 69 bpm normal intervals are noted resting blood pressure 150/88 mmHg. The patient exercised according to the regular Robert protocol for a total duration of 6 minutes and 30 seconds. Patient completed 30 seconds into stage III of the Robert protocol the maximum heart rate attained was 157 bpm which was 88% of maximum predicted heart rate the maximum workload was 7.7 metabolic equivalents. At rest there were no ST or T wave changes noted suggest ischemia at peak exercise upsloping ST changes only were noted with normally the criteria for ischemia. No clinical angina was noted. The test was terminated due to leg fatigue. Myocardial perfusion protocol. 14.5 mCi of technetium 99m sestamibi was injected at rest. The patient exercised according to regular Robert protocol for 6-1/2 minutes. At peak exercise 44.7 mCi of technetium 99m sestamibi was injected stress images were obtained stress and rest images were reconstructed and compared in the short axis vertical long horizontal long axis. Gated images were also obtained Perfusion SPECT analysis: Review of the stress images demonstrate normal uptake of tracer noted in all areas of the myocardium. The resting images similarly demonstrate normal uptake of tracer noted in all areas of the myocardium. No areas of reversibility are noted suggest ischemia. Gated SPECT analysis: The gated ejection fraction is noted to be 67%. Conclusion: Normal exercise myocardial perfusion stress test at a moderate workload. Preserved ejection fraction.
[2018-10-22] MEDS: Magnesium Oxide 400 MG Tablet 200 MG PO (13:11)
[2018-10-22] MEDS: FLUoxetine 20 MG Capsule 60 MG PO (13:12)
[2018-10-22] MEDS: Omega-3 Acid Ethyl Esters 1 GM Capsule PO (13:12)
--- NOTE | 2018-10-22 14:26 | DCINST_ITS ---
- Discharge Diagnoses Current Active Problems: Current Active and Chronic Problems (Last Reviewed 10/20/18 @ 22:51 by Alejandro Padgett MD) Chest pain (Acute) You will use the following diet at home:: Calorie/Carbohydrate Controlled (specify 1200, 1400, etc) - 1800 shea Your food should be the consistency of: Regular Your liquids should be the consistency of: Regular/Thin Discharge Activity: Return to Normal Activity Weight Bearing Status: Full weight bearing Allergies/Adverse Reactions: Allergies citalopram Allergy (Unknown, Verified 10/20/18 21:40) Unknown venlafaxine Allergy (Unknown, Verified 10/20/18 21:40) Unknown metoclopramide [From Reglan] Allergy (Verified 10/20/18 21:40) weirds me out sertraline [From Zoloft] Allergy (Verified 10/20/18 21:40) sexual side effects topiramate [From Topamax] Allergy (Verified 10/20/18 21:40) Unknown can't remember Medications to take at Discharge Esomeprazole Mag Trihydrate [Nexium] 40 mg PO QHS 10/10/17 Fenofibrate [Lipofen] 54 mg PO DAILY 10/10/17 Multivitamin [Multiple Vitamins] 1 ea PO DAILY 10/10/17 atorvastatin 20 mg tablet 20 mg PO DAILY 03/22/18 fluoxetine 40 mg capsule 60 mg PO QDAY 03/22/18 metformin 500 mg tablet 1,000 mg PO BID tab 03/22/18 Doxepin HCl [Sinequan] 10 mg PO QHS 10/20/18 Fish Oil 1,000 mg Capsule 1,000 mg PO BID 10/20/18 Magnesium 250 mg PO BID 10/20/18 Olanzapine [Zyprexa] 2.5 mg PO QHS 10/20/18 Riboflavin (Vitamin B2) [Vitamin B-2] 100 mg PO BID 10/20/18 Zonisamide [Zonegran] 25 mg PO DAILY 10/20/18 Empagliflozin [Jardiance] 25 mg PO DAILY #30 tablet 10/22/18 The following prescriptions were given: Empagliflozin [Jardiance] 25 mg PO DAILY #30 tablet Primary Care Physician: Humberto Dos Santos MD [Primary Care Provider] - Please follow up with your Primary Care Physician in: at next appointment time Test Results: Test results from this visit will be discussed in further detail at your follow- up appointment, if applicable.
--- NOTE | 2018-10-22 14:32 | NURSING ---
Dr. Jaimes here to see pt, may be discharged to home. RX (Jardiance)sent to [facility] in [place].
--- NOTE | 2018-10-23 08:43 | PCM.DC.SUM ---
Discharge Date and Diagnosis Date of Admission: 10/20/18 Date of Discharge: 10/22/18 - Primary Discharge Diagnosis #1 noncardiac chest pain- musculoskeletal in nature #2 uncontrolled type 2 diabetes #3 chronic migraines #4 obstructive sleep apnea - Secondary Discharge Diagnosis Chronic Problems (Last Reviewed 10/20/18 @ 22:51 by Alejandro Padgett MD) Multiple thyroid nodules (Chronic) Restrictive airway disease (Chronic) MIKE (obstructive sleep apnea) (Chronic) on autopap, treated by [facility] neurology HLD (hyperlipidemia) (Chronic) Obesity (BMI 30-39.9) (Chronic) Diabetes mellitus, type II (Chronic) Anxiety and depression (Chronic) Hospital Course and Treatment Operations: None Procedures: Nuclear stress test Summary of Care Provided: The patient is a 42 year old male was placed in observation status on PCU after presenting at [facility] with a chief complaint of chest pain and left arm pain. Workup at [facility] was unremarkable including EKG and troponin. Chest x-ray was also unremarkable. Patient had serial cardiac enzymes performed in the hospital here which were all normal, he underwent an exercise nuclear stress test which was negative for reversible ischemia. On 10/22/18, he was seen and examined: On examination he appeared in good health and spirits. Vital signs as documented. Skin warm and dry and without overt rashes. Neck without JVD. Lungs clear. Heart exam notable for regular rhythm, normal sounds and absence of murmurs, rubs or gallops. Abdomen unremarkable and without evidence of organomegaly, masses, or abdominal aortic enlargement. Extremities nonedematous. Neuro: Cranial nerves II through XII are grossly intact, no focal motor deficits were noted, sensation to light touch and pinprick intact. Psych: Patient is alert and oriented x3, he does not appear anxious or depressed On 10/22/18, patient was seen and examined and felt to be in stable condition for discharge home. - Physical Exam Vital Signs Temp Pulse Resp BP Pulse Ox 98.1 F 87 16 121/88 H 96 10/22/18 15:03 10/22/18 15:03 10/22/18 15:03 10/22/18 15:03 10/22/18 15:03 Oxygen Delivery Method Room Air Weight: 136 kg Body Mass Index (BMI) 38.5 Intake and Output for Last 24 Hours 10/21/18 10/22/18 10/23/18 23:59 23:59 23:59 Intake Total 600 / 600 400 / 400 Balance 600 / 600 400 / 400 POC Glucose 10/22/18 10:28 POC Glucose 194 H Discharge Activity: Return to Normal Activity Weight Bearing Status: Full weight bearing Home Medications: Medications to take at Discharge Esomeprazole Mag Trihydrate [Nexium] 40 mg PO QHS 10/10/17 Fenofibrate [Lipofen] 54 mg PO DAILY 10/10/17 Multivitamin [Multiple Vitamins] 1 ea PO DAILY 10/10/17 atorvastatin 20 mg tablet 20 mg PO DAILY 03/22/18 fluoxetine 40 mg capsule 60 mg PO QDAY 03/22/18 metformin 500 mg tablet 1,000 mg PO BID tab 03/22/18 Doxepin HCl [Sinequan] 10 mg PO QHS 10/20/18 Fish Oil 1,000 mg Capsule 1,000 mg PO BID 10/20/18 Magnesium 250 mg PO BID 10/20/18 Olanzapine [Zyprexa] 2.5 mg PO QHS 10/20/18 Riboflavin (Vitamin B2) [Vitamin B-2] 100 mg PO BID 10/20/18 Zonisamide [Zonegran] 25 mg PO DAILY 10/20/18 Empagliflozin [Jardiance] 25 mg PO DAILY #30 tablet 10/22/18 Following Prescrptions Were Given to Patient: Empagliflozin [Jardiance] 25 mg PO DAILY #30 tablet Primary Care Physician: Humberto Dos Santos MD [Primary Care Provider] - Please follow up with your Primary Care Physician in: at next appointment time Disposition: Home Minutes spent on discharge:: 31 Patient Condition:: Stable Medical Necessity - Tobacco Use Smoking Status: Never smoker Meaningful Use Info Meaningful Use Diagnoses (Choose all that apply): None applicable Code Visit OBSV E&M: 03798 Observation care discharge
== END 2018-10-22 14:26 | disposition home or self-care (01) ==
PROVIDERS: Hospitalist; Student in an Organized Health Care Education/Training Program; Family Provider Family Medicine; PCP Family Medicine; Visit Provider Internal Medicine
DX: R07.89 Other chest pain (principal); E04.2 Nontoxic multinodular goiter; E66.01 Morbid (severe) obesity due to excess calories; G47.33 Obstructive sleep apnea (adult) (pediatric); M79.602 Pain in left arm; Z79.899 Other long term (current) drug therapy; Z79.84 Long term (current) use of oral hypoglycemic drugs; Z68.38 Body mass index [BMI] 38.0-38.9, adult; Z71.3 Dietary counseling and surveillance; E78.5 Hyperlipidemia, unspecified; F41.9 Anxiety disorder, unspecified; F32.9 Major depressive disorder, single episode, unspecified; K21.9 Gastro-esophageal reflux disease without esophagitis; G43.909 Migraine, unspecified, not intractable, without status migrainosus; E11.65 Type 2 diabetes mellitus with hyperglycemia
CPT/HCPCS: 36415; 78452; 80048; 80061; 82962; 84484; 85025; 85610; 85730; 93005; 93017; 99218; A9500; A4216; G0378

== ENCOUNTER → 2018-12-31 07:52 | Outpatient (CLI) | payer OTHER, SELFPAY ==
[2018-10-20 21:31] VITALS: BMI 38.5
--- NOTE | 2018-12-31 07:54 | CT_ITS ---
STUDY: CT CHEST WITHOUT CONTRAST REASON FOR EXAM: Male, 43 years old. Follow-up of right lung nodule RADIATION DOSAGE (If Supplied By Facility): CTDIvol = ( 20.07 ) mGy, DLP = ( 782.47 ) mGycm TECHNIQUE: Transaxial imaging was performed without the administration of intravenous contrast material. Individualized dose optimization techniques were used for this CT. COMPARISON: None. FINDINGS: TRACHEA, THYROID, ESOPHAGUS: No tracheomalacia,stricture or wall thickening. Thyroid and esophagus are normal CARDIOVASCULAR SYSTEM: The thoracic aorta is grossly within normal limits. The pulmonary trunk and the left pulmonary arteries are also grossly within normal limits. The heart is not enlarged. There are no vascular developmental anomalies. AME AND LYMPH NODES: No hilar masses and no mediastinal, hilar, axillary or supraclavicular adenopathy LUNGS, LOW-ATTENUATION: No traction bronchiectasis, honeycombing,emphysema, lung cysts or cavitations LUNGS, HIGH ATTENUATION: There is a 6.5 mm nodular density attached to the major fissure. It has not changed since the last dated December 06, 2017. It looks benign. LUNGS, MOSAIC/CRAZY PAVING: Not evident PLEURA AND CHEST WALL: No plural effusions, pneumothoraces,rib fractures or any osteolytic/osteoblastic changes . The soft tissue chest wall including the breasts are normal UPPER ABDOMEN: Unremarkable No change in the nodular density in the right lower lobe. It appears attached to the major fissure and measures 6.[address]/Chest without Contrast IMPRESSION: No change. A small 6.5 mm nodular density in the right lower lobe. Appears attached to the fissure and looks benign Electronically Signed: Bill Buenrostro MD at 5:01 EDT Tel , Service support ,
== END ==
PROVIDERS: Family Provider Family Medicine; PCP Family Medicine; Referring Provider Nurse Practitioner Acute Care; Visit Provider Nurse Practitioner Acute Care
DX: R93.89 Abnormal findings on diagnostic imaging of other specified body structures (principal)
CPT/HCPCS: 71250

== ENCOUNTER → 2019-03-06 17:03 | Outpatient (CLI) | payer OTHER, SELFPAY ==
--- NOTE | 2019-03-06 | CYST_PTH ---
PATIENT: BIANCA DELAROSA LOC: PATI U#:[id number] AGE/SX: 49/M ROOM: RE03/06/[address]: Dr. True Lazaro MD : 1975 BED: DIS: SPEC #: [id number] RECD: 03/06/19 16:34 STATUS: SUGAR JULITA #: [id number] SANCHEZ: 03/06/19 00:[address]: True Lazaro DEPT: SURGICAL PATHOLOGY RECD BY: Sinan Suarez ENTERED: 03/07/19 10:19 SP TYPE: Cyst OTHR DR: Dr. Humberto Dos Santos MD Tissues: Scalp, NOS Procedures: Surgery Specimen Level III HEADER OPERATION: Excision scalp cyst PRE-OP DIAGNOSIS: Subcutaneous cyst TISSUE SUBMITTED: Right scalp cyst MICROSCOPIC DIAGNOSIS Right scalp cyst, excision: Consistent with benign arteriovenous malformation See comment. AM:ross 03/08/19 COMMENT Immunohistochemistry ([id number]) supports the above diagnosis. Case has been reviewed in consultation with Dr. Tam who concurs with the above diagnosis. IDC:[email or web address] MICROSCOPIC DESCRIPTION Slides are reviewed. GROSS DESCRIPTION Received in fixative is one container labeled with the patient's name and designated right scalp cyst. The specimen consists of a portion of reddish-pink soft tissue measuring 1.5 x 1.5 x 0.6 cm. One surface of the tissue demonstrates probable skin. Sections demonstrate a 0.6 cm ovoid cystic structure containing multiple small cysts. [employer] sections are submitted in one cassette. / CE:ross 03/07/19 TC:1 CPT: 56190
--- NOTE | 2019-03-06 | IMM_PTH ---
PATIENT: BIANCA DELAROSA LOC: PATI U#:[id number] AGE/SX: 49/M ROOM: RE03/06/[address]: Dr. True Lazaro MD : 1975 BED: DIS: SPEC #: [id number] RECD: 03/08/19 13:51 STATUS: SUGAR REPili #: [id number] SANCHEZ: 03/06/19 00:[address]: True Lazaro DEPT: IMMUNOHISTOCHEMISTRY RECD BY: Balbina Maya ENTERED: 03/08/19 13:52 SP TYPE: IMMUNO OTHR DR: Dr. Humberto Dos Santos MD Tissues: Scalp, NOS Procedures: SMA (add) CD31 (add) CD34 (add) Vimentin (add) FACTOR VIII (add) Pankeratin (initial) PHYSICIAN & INSTITUTION [place] [address] SPECIMEN INFORMATION: Tissue Source: Right scalp cyst Clinical Info: Right scalp cyst Specimen Number: [id number] CPT code: 96767, 84909 x5 METHODOLOGY: Deparaffinized sections of prefer/formalin-fixed tissue or PAP/DQ stained slides are incubated with monoclonal/polyclonal antibodies/oligonucleotide probes. Localization is made via biotin free immunoperoxidase method. Appropriate controls are performed and reacted as expected. Results on target cell population are indicated in the following table: RESULTS: ANTIBODY / CLONE RESULT AE1-3 (AE1/AE3/PCK26) negative Actin (1A4) positive Vimentin (V9) negative CD31 (JOSE E/70A) positive CD34 (QBEnd-10) positive Factor VIII (R Ag) positive These tests were developed and their performance characteristics determined by [facility]. They may not have been cleared or approved by the U.[place]. Food and Drug Administration. The FDA has determined that such clearance or approval is not necessary. INTERPRETATION: Right scalp cyst, excision: Consistent with benign arteriovenous malformation. Case has been reviewed in consultation with Dr. Tam who concurs with the above diagnosis. IDC:[email or web address]
[2019-03-06 16:09] VITALS: BMI 38.5
== END ==
PROVIDERS: Family Provider Family Medicine; PCP Family Medicine; Referring Provider Surgery; Visit Provider Surgery
DX: L72.9 Follicular cyst of the skin and subcutaneous tissue, unspecified (principal)
CPT/HCPCS: 88304; 88341; 88342

== ENCOUNTER 2023-04-14 14:00 | Observation (INO) | payer BC, SELFPAY ==
[2023-04-14] VITALS (9 sets, daily range): BP systolic 117–144; BP diastolic 76–108; PULSE 89–123; RESP 16–18; TEMP 36.2–37.7; O2SAT 90–95; BMI 36.9
--- NOTE | 2023-04-14 14:08 | EDS_ITS ---
HPI <DANNA Welch - Last Filed: 04/14/23 17:06> History of Present Illness Chief Complaint: Abscess Narrative Narrative: 47-year-old male with PMH of DM2 presents with a buttock abscess x4 days. He had an abscess in the same area over 6 months ago that burst spontaneously. Today he was evaluated at his PCPs office and they sent him to the ED. He denies fever or chills. He is on insulin and does not know what his blood sugars have been running this week because his arm sensor fell off. PFSH <DANNA Welch - Last Filed: 04/14/23 17:06> [facility] Medical History (Updated 04/14/23 @ 17:[address] Prince Villanueva MD) Abnormal chest CT Acute respiratory failure Acute respiratory failure with hypoxia Anxiety and depression Chronic headache Community acquired pneumonia Diabetes mellitus, type II GERD (gastroesophageal reflux disease) HLD (hyperlipidemia) Multiple thyroid nodules Obesity (BMI 30-39.9) MIKE (obstructive sleep apnea) Pneumonia Restrictive airway disease Shortness of breath Home Medications esomeprazole magnesium 40 mg capsule,delayed release 40 mg PO QHS gerd 10/10/17 [History Last Taken 10/19/18] fenofibrate 50 mg capsule 54 mg PO DAILY cholesterol 10/10/17 [History Last Taken 10/20/18] multivitamin 1 ea PO DAILY supplement 10/10/17 [History Last Taken 10/20/18] atorvastatin 20 mg tablet 20 mg PO DAILY 03/22/18 [History Last Taken 10/20/18] fluoxetine 40 mg capsule 60 mg PO QDAY 03/22/18 [History Last Taken 10/20/18] metformin 500 mg tablet 1,000 mg PO BID diabetes 03/22/18 [History Last Taken 10/20/18] Fish Oil 1,000 mg Capsule 1,000 mg PO BID 10/20/18 [History Last Taken 10/20/18] Magnesium 250 mg PO BID 10/20/18 [History Last Taken 10/20/18] doxepin 10 mg capsule 10 mg PO QHS 10/20/18 [History Last Taken 10/19/18] olanzapine 2.5 mg tablet 2.5 mg PO QHS 10/20/18 [History Last Taken 10/19/18] riboflavin (vitamin B2) 100 mg tablet 100 mg PO BID 10/20/18 [History Last Taken 10/20/18] zonisamide 25 mg capsule 25 mg PO DAILY 10/20/18 [History Last Taken 10/20/18] empagliflozin 25 mg tablet 25 mg PO DAILY #30 tabs 10/22/18 [Rx Last Taken Unknown] Allergy/AdvReac Type Severity Reaction Status Date / Time citalopram Allergy Unknown Unknown Verified 03/06/19 14:55 venlafaxine Allergy Unknown Unknown Verified 03/06/19 14:55 metoclopramide [From Reglan] Allergy weirds me Verified 03/06/19 14:55 out sertraline [From Zoloft] Allergy sexual Verified 03/06/19 14:55 side effects topiramate [From Topamax] Allergy Unknown Verified 03/06/19 14:55 Family History Father Colon cancer at age 53 Heart disease Myocardial infarction Surgical History Hx of appendectomy Hx of tonsillectomy Social History Smoking Status: Never smoker second hand exposure: No alcohol intake: never substance use type: does not use caffeine: Yes what type of physical activity do you participate in: none frequency: does not exercise seatbelt use: always ROS <DANNA Welch - Last Filed: 04/14/23 17:06> ROS ED ROS Narrative Constitutional: Negative for fever, chills, malaise. GI: Negative for abdominal pain, nausea, vomiting. Skin: Negative for wound. EXAM <DANNA Welch - Last Filed: 04/14/23 17:06> Physical Exam Narrative Exam Narrative: CONST: Patient sitting in no acute distress. EYES: Normal inspection. NECK: Normal inspection. RESP: No respiratory distress, CTAB. CVS: Rapid but regular rhythm, no murmur, no gallop. Rectal: Left perirectal area has tenderness and erythema extending toward the rectum. No induration, no lymphangitis. SKIN: Color normal, no rash, warm, dry, intact. EXTREMITIES: Normal appearance, no pedal edema. NEURO: Oriented x4. PSYCH: Normal affect. Const Vital Signs: 04/14/23 14:01 04/14/23 16:13 04/14/23 17:03 Temperature 97.1 F L 99.7 F H 99.8 F H Temperature Source Temporal Temporal Temporal Pulse Rate 123 H 99 Respiratory Rate 18 16 16 Blood Pressure 144/108 H 136/86 H 117/81 H Blood Pressure Mean 120 102 93 Blood Pressure Source Monitor Blood Pressure Position Supine Blood Pressure Location Right Arm Pulse Ox 95 91 91 Oxygen Delivery Method Room Air Room Air Room Air <Dr. Macey Merchant DO - Last Filed: 04/14/23 15:59> Physical Exam Const Vital Signs: 04/14/23 14:01 04/14/23 16:13 04/14/23 17:03 Temperature 97.1 F L 99.7 F H 99.8 F H Temperature Source Temporal Temporal Temporal Pulse Rate 123 H 99 Respiratory Rate 18 16 16 Blood Pressure 144/108 H 136/86 H 117/81 H Blood Pressure Mean 120 102 93 Blood Pressure Source Monitor Blood Pressure Position Supine Blood Pressure Location Right Arm Pulse Ox 95 91 91 Oxygen Delivery Method Room Air Room Air Room Air [facility] <DANNA Welch - Last Filed: 04/14/23 17:06> [facility] Narrative Medical decision making narrative: History gathered from: Patient and spouse Patient has a perirectal abscess x4 days. He appears well and nontoxic. Heart rate in the 120s with otherwise normal vital signs. There is an area of erythema and tenderness in the left perirectal region but I cannot feel a discrete abscess. I am concerned there could be extension into the rectum with its proximity. With his history of diabetes and tachycardia plan will be for labs and CT of the pelvis to evaluate. He has a normal white count at 9.8. Glucose is 300. CT shows a Francis rectal abscess somewhere around 2 x 4 cm. The on-call general surgeon, Dr. Villanueva, took the patient to the OR for drainage. He was given a dose of IV Zosyn in the ED. Differential: Cutaneous abscess versus deep perirectal abscess Consults: General surgery I have personally performed a face to face assessment of the patient and have re viewed the RICHAR Note. I performed a substantive portion of the visit including all aspects of the following. My bland findings include: History is [patient presents with pain and fullness near her rectum x4 days. He denies fever although he has had some sweats. Patient states that he had a similar episode about 6 months ago where he had a spontaneous draining abscess that his primary care physician expressed pus from. Patient has not had any issues since. He has not had any surgical intervention.] Exam is [HEENT-normocephalic atraumatic Cardiovascular-heart regular rate and rhythm without murmur Lungs-clear to auscultation Abdomen-soft and nontender to palpation. Normoactive bowel sounds. Rectal exam-patient has soft tissue swelling and some induration along the medial aspect of the left buttock near the rectum that is tender to palpation into a near the perineum. No fluctuance noted. No discrete abscess palpated.] Medical Decision Making [I my interpretation of the CT scan of the pelvis with IV contrast it appears patient has a soft tissue abscess measuring approximately 4 cm x 2 and half centimeters. I discussed marysol case with general surgery on- call who will evaluate patient for incision and drainage of suspected abscess.] Other additions or changes: [None] Lab Data Attestation: I reviewed the patient's lab results. Labs: Laboratory Results - last 24 hr 04/14/23 14:50 WBC 9.8 RBC 4.74 Hgb 15.2 Hct 42.2 MCV 89.0 MCH 32.1 H MCHC 36.0 RDW Std Deviation 37.4 RDW Coeff of Katie 11.6 Plt Count 203 MPV 12.4 H Immature Gran % (Auto) 0.300 Neut % (Auto) 73.5 H Lymph % (Auto) 19.3 [place] % (Auto) 5.8 Eos % (Auto) 0.6 Baso % (Auto) 0.5 Absolute Neuts (auto) 7.2 Absolute Lymphs (auto) 1.89 Nucleated RBC % 0 Sodium 135 L Potassium 3.7 Chloride 102 Carbon Dioxide 23.0 Anion Gap 10 BUN 9 Creatinine 0.79 Estim Creat Clear Calc 132.95 Est GFR (MDRD) Af Amer 134 Est GFR (MDRD) Non-Af 111 BUN/Creatinine Ratio 11.3 Glucose 300 H Calcium 8.9 <Dr. Macey Merchant, DO - Last Filed: 04/14/23 15:59> MDM MDM Narrative Medical decision making narrative: History gathered from: Patient and spouse Patient has a perirectal abscess x4 days. He appears well and nontoxic. Heart rate in the 120s with otherwise normal vital signs. There is an area of erythema and tenderness in the left perirectal region but I cannot feel a discrete abscess. I am concerned there could be extension into the rectum with its proximity. With his history of diabetes and tachycardia plan will be for labs and CT of the pelvis to evaluate. I have personally performed a face to face assessment of the patient and have reviewed the RICHAR Note. I performed a substantive portion of the visit including all aspects of the following. My bland findings include: History is [patient presents with pain and fullness near her rectum x4 days. He denies fever although he has had some sweats. Patient states that he had a similar episode about 6 months ago where he had a spontaneous draining abscess that his primary care physician expressed pus from. Patient has not had any issues since. He has not had any surgical intervention.] Exam is [HEENT-normocephalic atraumatic Cardiovascular-heart regular rate and rhythm without murmur Lungs-clear to auscultation Abdomen-soft and nontender to palpation. Normoactive bowel sounds. Rectal exam-patient has soft tissue swelling and some induration along the medial aspect of the left buttock near the rectum that is tender to palpation into a near the perineum. No fluctuance noted. No discrete abscess palpated.] Medical Decision Making [I my interpretation of the CT scan of the pelvis with IV contrast it appears patient has a soft tissue abscess measuring approximately 4 cm x 2 and half centimeters. I discussed marysol case with general surgery on- call who will evaluate patient for incision and drainage of suspected abscess.] Other additions or changes: [None] Lab Data Labs: Laboratory Results - last 24 hr 04/14/23 14:50 WBC 9.8 RBC 4.74 Hgb 15.2 Hct 42.2 MCV 89.0 MCH 32.1 H MCHC 36.0 RDW Std Deviation 37.4 RDW Coeff of Katie 11.6 Plt Count 203 MPV 12.4 H Immature Gran % (Auto) 0.300 Neut % (Auto) 73.5 H Lymph % (Auto) 19.3 [place] % (Auto) 5.8 Eos % (Auto) 0.6 Baso % (Auto) 0.5 Absolute Neuts (auto) 7.2 Absolute Lymphs (auto) 1.89 Nucleated RBC % 0 Sodium 135 L Potassium 3.7 Chloride 102 Carbon Dioxide 23.0 Anion Gap 10 BUN 9 Creatinine 0.79 Estim Creat Clear Calc 132.95 Est GFR (MDRD) Af Amer 134 Est GFR (MDRD) Non-Af 111 BUN/Creatinine Ratio 11.3 Glucose 300 H Calcium 8.9 Discharge Plan Triage Chief Complaint: Abscess ED Midlevel Provider: Jil Scott ED Provider: Macey Merchant Dx/Rx/DC Orders Primary Care Provider: Humberto Dos Santos
--- NOTE | 2023-04-14 14:13 | CT_ITS ---
STUDY: CT Pelvis W/ Contrast Injection 04/14/2023 5:07 PM REASON FOR EXAM: Male, 47 years old. Abdominal pain perirectal abscess Individualized dose optimization techniques were used for this CT. COMPARISON: None. TECHNIQUE: CT Pelvis W/ Contrast Injection IV 100mL Isovue-370 FINDINGS: Normal visualized stomach. Normal small intestine. There are multiple colonic diverticula consistent with diverticulosis. There are surgical clips in the region of the appendix consistent with a prior appendectomy. There are calcifications of the abdominal aorta. This is consistent for atherosclerotic disease. There is NO abdominal aortic aneurysm. Vascular workup can be obtained based on clinical correlation. Normal inferior vena cava. Subcentimeter mesenteric lymph nodes. Normal urinary bladder. Left preston anal abscess is 32 x 22 x 38 mm in size. Se 2 IM: 82 and Se602 IM: 107. There is an umbilical hernia containing fat. Normal osseous structures. There is bilateral neural foraminal stenosis at L4-5 and L5-S1. CT/Pelvis WITH IV Contrast IMPRESSION: (NOT LISTED IN ORDER OF SIGNIFICANCE) Left preston anal abscess is 32 x 22 x 38 mm in size. Se 2 IM: 82 and Se602 IM: 107. Other findings as above. Electronically Signed: Jaime Amaya MD at 17:11 EDT ,
[2023-04-14 14:58] LABS: Absolute Lymphocyte Count 1.89 X10^3/uL (0.83-4.51); Absolute Neutrophil Count 7.2 X10^3/uL (2.0-7.7); Basophil# 0.05 X10^3/uL; Basophil% 0.5 % (0-1); Eosinophil# 0.06 X10^3/uL; Eosinophils% 0.6 % (0-5); Hematocrit 42.2 % (40-54); Hemoglobin 15.2 g/dL (13.0-16.5); Lymphocyte # 1.89 X10^3/ul (0.83-4.51); Lymphocyte % 19.3 % (19-41); Mean Corpuscular Hgb 32.1 pg (27.0-32.0); Mean Platelet Vol. 12.4 fl (6.2-12.0); Monocyte# 0.57 X10^3/uL; Monocyte% 5.8 % (0-10); NRBC Flagged by Analyzer 0 % (0-5); Neutrophil # 7.19 X10^3/uL (2.7-7.7); Neutrophil % 73.5 % (47-70); Platelet Count 203 K/mm3 (150-450); RBC Distribution Width CV 11.6 % (11.6-14.6); RBC Distribution Width SD 37.4 fl (35.1-43.9); Red Blood Count 4.74 M/mm3 (4.6-6.2); White Blood Count 9.8 K/mm3 (4.4-11.0)
[2023-04-14 15:16] LABS: Anion Gap 10 (5-15); BUN 9 mg/dL (7-18); BUN/Creat Ratio 11.3 RATIO (10-20); Calcium,Total 8.9 mg/dL (8.5-10.1); Chloride 102 mmol/L (98-107); Creatinine, Serum 0.79 mg/dL (0.70-1.30); EST Glomerular Filtration Rate 111 mL/min (>60); Est Glom Filt Rate - Afr Amer 134 mL/min (>60); Estimated Creatinine Clearance 132.95 ml/min; Glucose 300 mg/dL (74-106); Potassium 3.7 mmol/L (3.5-5.1); Sodium Level 135 mmol/L (136-145)
--- NOTE | 2023-04-14 16:51 | HP.PCM_ITS ---
HPI - General General Date of Service: 04/14/23 HPI Narrative BIANCA DELAROSA, is a 47 M who presents to [facility] ER under direction from his PCP after presenting there with complaints of perirectal pain for the past 4 days and feelings of a lump. Patient states that he had a similar episode in September of last year, however, states that this area spontaneously drained by the time he reached medical attention and was managed simply through packing thereafter. He denies any fevers or chills at home. He is a type II diabetic and confesses that his glucose monitor fell off and he has been unable to secure a placement but suspects that his blood sugars have been elevated. Patient's ER work-up is notable for CMP that shows a blood glucose of 300. CBC shows no leukocytosis but left shift is present. CT imaging of the abdomen pelvis was obtained showing a left-sided perirectal abscess. Patient has a family history of colon cancer (diagnosed in his father at the age of 48) and thus has placed him in a high risk screening cohort such that he has been undergoing colonoscopies every 5 years since the age of 27. He reports that his last colonoscopy was completed last year and was without remarkable findings. [facility] Medical History (Updated 04/14/23 @ 17:[address] Prince Villanueva MD) Abnormal chest CT Acute respiratory failure Acute respiratory failure with hypoxia Anxiety and depression Chronic headache Community acquired pneumonia Diabetes mellitus, type II GERD (gastroesophageal reflux disease) HLD (hyperlipidemia) Multiple thyroid nodules Obesity (BMI 30-39.9) MIKE (obstructive sleep apnea) Pneumonia Restrictive airway disease Shortness of breath Home Medications esomeprazole magnesium 40 mg capsule,delayed release 40 mg PO QHS gerd 10/10/17 [History Last Taken 10/19/18] fenofibrate 50 mg capsule 54 mg PO DAILY cholesterol 10/10/17 [History Last Taken 10/20/18] multivitamin 1 ea PO DAILY supplement 10/10/17 [History Last Taken 10/20/18] atorvastatin 20 mg tablet 20 mg PO DAILY 03/22/18 [History Last Taken 10/20/18] fluoxetine 40 mg capsule 60 mg PO QDAY 03/22/18 [History Last Taken 10/20/18] metformin 500 mg tablet 1,000 mg PO BID diabetes 03/22/18 [History Last Taken 10/20/18] Fish Oil 1,000 mg Capsule 1,000 mg PO BID 10/20/18 [History Last Taken 10/20/18] Magnesium 250 mg PO BID 10/20/18 [History Last Taken 10/20/18] doxepin 10 mg capsule 10 mg PO QHS 10/20/18 [History Last Taken 10/19/18] olanzapine 2.5 mg tablet 2.5 mg PO QHS 10/20/18 [History Last Taken 10/19/18] riboflavin (vitamin B2) 100 mg tablet 100 mg PO BID 10/20/18 [History Last Taken 10/20/18] zonisamide 25 mg capsule 25 mg PO DAILY 10/20/18 [History Last Taken 10/20/18] empagliflozin 25 mg tablet 25 mg PO DAILY #30 tabs 10/22/18 [Rx Last Taken Unknown] Allergy/AdvReac Type Severity Reaction Status Date / Time citalopram Allergy Unknown Unknown Verified 03/06/19 14:55 venlafaxine Allergy Unknown Unknown Verified 03/06/19 14:55 metoclopramide [From Reglan] Allergy weirds me Verified 03/06/19 14:55 out sertraline [From Zoloft] Allergy sexual Verified 03/06/19 14:55 side effects topiramate [From Topamax] Allergy Unknown Verified 03/06/19 14:55 Family History Father Colon cancer at age 53 Heart disease Myocardial infarction Surgical History Hx of appendectomy Hx of tonsillectomy Social History Smoking Status: Never smoker second hand exposure: No alcohol intake: never substance use type: does not use caffeine: Yes what type of physical activity do you participate in: none frequency: does not exercise seatbelt use: always ROS Constitutional Constitutional: Denies fever(s) or night sweats Gastrointestinal Gastrointestinal: Reports constipation; Denies hematochezia or melena Vital Signs Vital Signs Vital Signs: 04/14/23 14:01 Temperature 97.1 F L Temperature Source Temporal Pulse Rate 123 H Respiratory Rate 18 Blood Pressure 144/108 H Blood Pressure Mean 120 Pulse Ox 95 Oxygen Delivery Method Room Air Weight Weight: 287 lb 8 oz Body Mass Index (BMI) 36.9 Physical Exam Const alert and oriented x3 Constitutional Narrative: Mild distress from perirectal discomfort Resp normal respiratory effort GI GI Narrative: Cellulitic changes with underlying fluctuance along patient's left buttock. This is exquisitely tender to palpation. There is no evidence of spontaneous drainage. Results Lab / Micro Data 04/14/23 14:50 04/14/23 14:50 Labs: Laboratory Results - last 24 hr 04/14/23 14:50: WBC 9.8, RBC 4.74, Hgb 15.2, Hct 42.2, MCV 89.0, MCH 32.1 H, MCH C 36.0, RDW Std Deviation 37.4, RDW Coeff of Katie 11.6, Plt Count 203, MPV 12.4 H , Immature Gran % (Auto) 0.300, Neut % (Auto) 73.5 H, Lymph % (Auto) 19.3, [place] % (Auto) 5.8, Eos % (Auto) 0.6, Baso % (Auto) 0.5, Absolute Neuts (auto) 7.2, Absolute Lymphs (auto) 1.89, Nucleated RBC % 0, Sodium 135 L, Potassium 3.7, Chloride 102, Carbon Dioxide 23.0, Anion Gap 10, BUN 9, Creatinine 0.79, Estim Creat Clear Calc 132.95, Est GFR (MDRD) Af Amer 134, Est GFR (MDRD) Non-Af 111, BUN/Creatinine Ratio 11.3, Glucose 300 H, Calcium 8.9 Assessment & Plan Assessment/Plan (1) Perirectal abscess: PLAN: This is a 47-year-old diabetic male who presents with a 96-hour history of perirectal discomfort and no clinical evidence of a perirectal abscess. There is been no drainage of this abscess and given patient's tenderness on exam I recommend operative incision and drainage. Patient reports that this is his second such episode which raises my suspicion for possible fistula in ano. We will therefore plan to perform an anorectal exam under anesthesia and if a fistulous tract is identified proceed with seton drain placement. And lieu of a fistulous tract, we will simply perform incision and drainage with packing. Patient's spouse confirms that she is familiar with this type of wound care. Given patient's comorbidities, I have recommended post procedure inpatient observation with IV antibiotic therapy. Operating room has been notified and we will proceed emergently for perirectal abscess incision and drainage. Charges/Coding Visit Charges Inpatient E&M: 66761 Init Hosp L2
[2023-04-14] MEDS: Lubricating Jelly 60 GM Tube 30 GM (19:45)
--- NOTE | 2023-04-14 20:39 | PCM.OPRPT ---
Report of Operation Date of Procedure: 04/14/23 Pre-Operative Diagnosis: Perirectal abscess (left) Post-Operative Diagnosis: Same Surgery/Procedure Performed:: Anal rectal exam under anesthesia with incision and drainage of perirectal abscess Description of Surgical Findings:: ? Indurated and fluctuant area in left perirectal space ? Tracking of abscess cavity towards anus and rectum without demonstrable internal opening to confirm fistula in ano Surgeon: Prince Villanueva Type of Anesthesia: MAC/Supplemental/Local Anesthesiologist: Gwen Smith Specimen's removed: Perirectal abscess cavity cultures Drains: Iodoform gauze (quarter inch) Estimated Blood Loss (mL): 100 Description of Procedure: After appropriate identification in the preoperative holding area the patient was brought to the operating room where he was positioned supine. He was administered sedation and then he was repositioned in lithotomy with leg holders. His perineal area and perianal area were prepped and draped. A formal timeout was conducted to confirm the patient and the procedure to be performed. The procedure was begun with creation of a perineal block of the pudendal nerve using 20 mL of 0.25% bupivacaine. Then, an 15 blade scalpel was used to make a stab incision in the area of greatest induration and fluctuance. This resulted in return of simple blood but a hemostat was inserted and used to bluntly prove the cavity. This blunt probing resulted in return of copious purulence. Additional blunt probing was used to try to disrupt any loculations and the cavity was then irrigated with sterile saline. Cultures were obtained of the cavity with swabs. I opened the cavity slightly more longitudinally in order to facilitate digital exam and used a small finger to disrupt any additional loculations I palpated. The final dimensions of this external opening were 1.5 cm x 1 cm. Next I attempted to identify an internal anal opening. This began with insertion of a lubricated Hill-Barker retractor to the anal canal. This retractor was oriented in such a way as to expose the inner aspect of the anal canal subjacent the patient's abscess. I then used a series of lacrimal probes to probe the wound and assess whether there was tracking towards the canal. While I found a general trajectory towards the anal canal, I was unable to visualize an internal opening and the large size of the cavity seemed to compromise the probe's ability to more accurately discriminate where a tract may exist. Therefore this attempt was abandoned and I further irrigated the cavity with additional warm sterile saline. To facilitate hemostasis, the cavity was packed with quarter inch iodoform gauze. Lastly a Kerlix gauze was layered over the site along with an abdominal pad dressing to collect post procedure drainage. Case was then concluded and the patient was awakened and transferred to PACU for ongoing recovery. Complications None Admit VTE Documentation VTE Mechan Device Prophylaxis: SCD's Procedures Digestive [id number]: 26456 Incision of rectal abscess
[2023-04-14 20:44] LABS: Bedside Glucose 252 mg/dL (74-106)
[2023-04-14] MEDS: 0.9% Normal Saline 1,000 ML 125 ML IV (22:58)
[2023-04-14] MEDS: Atorvastatin Calcium 20 MG Tablet PO (23:00)
[2023-04-14] MEDS: OLANZapine 2.5 MG Tablet PO (23:00)
[2023-04-14] MEDS: Pantoprazole Sodium 40 MG Tablet PO (23:00)
[2023-04-14 23:27] LABS: Bedside Glucose 404 mg/dL (74-106)
[2023-04-14] MEDS: Insulin Lispro 100 UNIT/ML INSULN.PEN SC (23:35)
[2023-04-15 00:59] VITALS: BP 134/90; PULSE 89; RESP 20; TEMP 36.8; O2SAT 93
[2023-04-15 05:01] VITALS: BP 133/93; PULSE 79; RESP 20; TEMP 37.1; O2SAT 93
[2023-04-15 06:23] LABS: Absolute Neutrophil Count 5.1 X10^3/uL (2.0-7.7); Basophil# 0.04 X10^3/uL; Basophil% 0.5 % (0-1); Eosinophil# 0.11 X10^3/uL; Eosinophils% 1.5 % (0-5); Hematocrit 39.4 % (40-54); Hemoglobin 13.5 g/dL (13.0-16.5); Lymphocyte % 20.5 % (19-41); Mean Corp Hgb Conc 34.3 g/dL (32-36); Mean Corpuscular Hgb 31.7 pg (27.0-32.0); Mean Corpuscular Volume 92.5 fL (80-94); Mean Platelet Vol. 13.2 fl (6.2-12.0); Monocyte# 0.57 X10^3/uL; Monocyte% 7.8 % (0-10); NRBC Flagged by Analyzer 0 % (0-5); Neutrophil # 5.08 X10^3/uL (2.7-7.7); Neutrophil % 69.4 % (47-70); Platelet Count 172 K/mm3 (150-450); RBC Distribution Width CV 11.8 % (11.6-14.6); RBC Distribution Width SD 39.8 fl (35.1-43.9); Red Blood Count 4.26 M/mm3 (4.6-6.2); White Blood Count 7.3 K/mm3 (4.4-11.0)
[2023-04-15] MEDS: Insulin Lispro 100 UNIT/ML INSULN.PEN SC ×2 (06:29→11:07)
[2023-04-15] MEDS: 0.9% Normal Saline 1,000 ML 125 ML IV (06:34)
[2023-04-15 06:38] LABS: Bedside Glucose 332 mg/dL (74-106)
[2023-04-15] MEDS: Fenofibrate 48 MG Tablet PO (07:59)
[2023-04-15 08:32] VITALS: BP 132/90; PULSE 93; RESP 16; TEMP 37.1; O2SAT 94
[2023-04-15] MEDS: fentaNYL 100 MCG/2 ML Ampul 50 MCG IV (10:25)
--- NOTE | 2023-04-15 10:55 | DCINST_ITS ---
Discharge Instructions Diet Discharge Diet: Carb Control Diet Activity Discharge Activity: May Shower Dressing / Incision Call your doctor if your incision/area has: Continuous Slow Oozing, Sudden Increased Bleeding, Increased Pain/ Swelling, Increased Redness and Foul Smelling Discharge Call your doctor if you observe: Fever of 101 or Higher and Change in Color Cleanse incision/area with: Soap & Water Additional Dressing/Incision Instructions:: Change packing twice daily after showering and expelling all water Follow Up Care Please Follow Up With: Prince Villanueva MD When: 7 to 10 days Test Results: Test results from this visit will be discussed in further detail at your follow- up appointment, if applicable. Discharge Plan Admission Admit Date/Time: 04/14/23 20:30 Primary Reason for Your Visit: Incision and drainage of perirectal abscess Attending Provider: Prince Villanueva Primary Care Provider: Humberto Dos Santos Discharge Orders/Prescriptions Prescriptions: New amoxicillin-pot clavulanate 500-125 mg Tablet 1 tab PO Q8 7 Days Qty: 21 0RF oxycodone 5 mg Tablet 5 mg PO Q6H PRN PRN (Reason: Pain Score 6-10) 3 Days Qty: 10 0RF Continued atorvastatin 20 mg tablet 20 mg PO DAILY fluoxetine 40 mg capsule 60 mg PO QDAY multivitamin 1 EACH tablet 1 ea PO DAILY esomeprazole magnesium 40 MG capsule 40 mg PO QHS fenofibrate 50 MG capsule 54 mg PO DAILY metformin 500 mg tablet 1,000 mg PO BID doxepin 10 MG capsule 10 mg PO QHS olanzapine 2.5 MG tablet 2.5 mg PO QHS zonisamide 25 MG capsule 25 mg PO DAILY Fish Oil 1,000 mg Capsule 1,000 mg PO BID empagliflozin 25 MG tablet 25 mg PO DAILY Qty: 30 0RF buspirone 15 mg tablet Patient Comments: TAKE 1 TABLET BY MOUTH TWICE A DAY insulin lispro protamin-lispro 100 unit/mL (75-25) insulin pen SUBCUT methylphenidate HCl 10 mg capsule,ER biphasic 50-50 PO Patient Comments: TAKE 1 CAPSULE BY MOUTH EVERY DAY duloxetine 60 mg capsule,delayed release(DR/EC) PO Patient Comments: TAKE 1 CAPSULE BY MOUTH ONCE DAILY fluticasone propionate 50 mcg/actuation spray,suspension 1 spray intranasal DAILY PRN (Reason: allergic symptoms) Rx Instructions: administer into each nostril Referrals / Follow Up: Humberto Dos Santos MD [Primary Care Provider] - Disposition Disposition (needs filled in before D/C Order can be placed): Home, Self Care
--- NOTE | 2023-04-15 10:55 | PCM.DC.SUM ---
Providers Date of Admission: 04/14/23 Primary Care Physician: Dr. Humberto Dos Santos MD Reason For Visit: ABSCESS Diagnosis Discharge Diagnosis (1) Perirectal abscess: Status: Acute Code(s): K61.1 - Rectal abscess Plan: This is a 47-year-old diabetic male who presents with a 96-hour history of perirectal discomfort and no clinical evidence of a perirectal abscess. There is been no drainage of this abscess and given patient's tenderness on exam I recommend operative incision and drainage. Patient reports that this is his second such episode which raises my suspicion for possible fistula in ano. We will therefore plan to perform an anorectal exam under anesthesia and if a fistulous tract is identified proceed with seton drain placement. And lieu of a fistulous tract, we will simply perform incision and drainage with packing. Patient's spouse confirms that she is familiar with this type of wound care. Given patient's comorbidities, I have recommended post procedure inpatient observation with IV antibiotic therapy. Operating room has been notified and we will proceed emergently for perirectal abscess incision and drainage. Medications at Discharge Home Medications esomeprazole magnesium 40 mg capsule,delayed release 40 mg PO QHS gerd 10/10/17 fenofibrate 50 mg capsule 54 mg PO DAILY cholesterol 10/10/17 multivitamin 1 ea PO DAILY supplement 10/10/17 atorvastatin 20 mg tablet 20 mg PO DAILY 03/22/18 fluoxetine 40 mg capsule 60 mg PO QDAY 03/22/18 metformin 500 mg tablet 1,000 mg PO BID diabetes 03/22/18 Fish Oil 1,000 mg Capsule 1,000 mg PO BID 10/20/18 doxepin 10 mg capsule 10 mg PO QHS 10/20/18 olanzapine 2.5 mg tablet 2.5 mg PO QHS 10/20/18 zonisamide 25 mg capsule 25 mg PO DAILY 10/20/18 empagliflozin 25 mg tablet 25 mg PO DAILY #30 tabs 10/22/18 buspirone 15 mg tablet mg 04/14/23 duloxetine 60 mg capsule,delayed release mg PO 04/14/23 fluticasone propionate 50 mcg/actuation nasal spray,suspension 1 spray intranasal DAILY PRN allergic symptoms 04/14/23 insulin lispro protamine-lispro 100 unit/mL (75-25) subcutaneous pen subcut 04/14/23 methylphenidate HCl 10 mg biphasic 50-50 capsule,extended release mg PO 04/14/23 amoxicillin 500 mg-potassium clavulanate 125 mg tablet 1 tab PO Q8 7 days #21 tabs 04/15/23 oxycodone 5 mg tablet 5 mg PO Q6H PRN PRN Pain Score 6-10 3 days #10 tabs 04/15/23 Hospital Course Operations - (Incision and drainage of left perirectal abscess) Summary of Care Provided Hospital Course: Patient is a 47-year-old male who was admitted through the emergency department on 04/14/2023 after being diagnosed with a perirectal abscess. Given the sensitive location of the patient's infection and his history of diabetes, I recommended an operative incision and drainage procedure. This was undertaken in uncomplicated fashion the evening of 04/14/2023 and patient was admitted to the hospital floor for ongoing IV antibiotic therapy. Postoperative day 1 patient has had minimal discomfort and a dressing change was performed at bedside to educate patient's spouse on the wound care required upon discharge. Patient tolerated this with minimal discomfort. He remains hyperglycemic, but has been extensively counseled on the need to continue to monitor his blood sugars and remain in communication with his primary care provider who has been working on this issue for at least the last 1 week. Lastly, I have asked for outpatient follow-up in general surgery clinic in approximately 1 week to review patient's wound healing. All questions were answered from patient and his spouse and they expressed their satisfaction with the care received. Patient is discharged home with wound care instructions, wound care supplies, and prescription for ongoing antibiotic therapy. Physical Exam GI GI Narrative: Persistent induration of left buttock, but no further fluctuance and improving erythema observed. No bleeding observed with dressing change. Weight / BMI Weight Weight: 287 lb 8 oz Body Mass Index (BMI) 36.9 ABG / Lab / Microbiology Data 04/15/23 05:35 04/14/23 14:50 Laboratory: Laboratory Results - last 24 hr 04/14/23 14:50: WBC 9.8, RBC 4.74, Hgb 15.2, Hct 42.2, MCV 89.0, MCH 32.1 H, MCHC 36.0, RDW Std Deviation 37.4, RDW Coeff of Katie 11.6, Plt Count 203, MPV 12.4 H, Immature Gran % (Auto) 0.300, Neut % (Auto) 73.5 H, Lymph % (Auto) 19.3, [place] % (Auto) 5.8, Eos % (Auto) 0.6, Baso % (Auto) 0.5, Absolute Neuts (auto) 7.2, Absolute Lymphs (auto) 1.89, Nucleated RBC % 0, Sodium 135 L, Potassium 3.7, Chloride 102, Carbon Dioxide 23.0, Anion Gap 10, BUN 9, Creatinine 0.79, Estim Creat Clear Calc 132.95, Est GFR (MDRD) Af Amer 134, Est GFR (MDRD) Non-Af 111, BUN/Creatinine Ratio 11.3, Glucose 300 H, Calcium 8.9 04/14/23 20:25: POC Glucose 252 H 04/14/23 23:07: POC Glucose 404 H 04/15/23 05:35: WBC 7.3, RBC 4.26 L, Hgb 13.5, Hct 39.4 L, MCV 92.5, MCH 31.7, MCHC 34.3, RDW Std Deviation 39.8, RDW Coeff of Katie 11.8, Plt Count 172, MPV 13.2 H, Immature Gran % (Auto) 0.300, Neut % (Auto) 69.4, Lymph % (Auto) 20.5, [place] % (Auto) 7.8, Eos % (Auto) 1.5, Baso % (Auto) 0.5, Absolute Neuts (auto) 5.1, Absolute Lymphs (auto) 1.50, Nucleated RBC % 0 04/15/23 06:15: POC Glucose 332 H Radiography Diagnostic Testing: Radiology Impression Pelvis CT 04/14/23 14:13 IMPRESSION: (NOT LISTED IN ORDER OF SIGNIFICANCE) Left preston anal abscess is 32 x 22 x 38 mm in size. Se 2 IM: 82 and Se602 IM: 107. Other findings as above. Electronically Signed: Jaime Amaya MD at 17:11 EDT , Meaningful Use Info Meaningful Use Diagnoses (Choose all that apply): None applicable Discharge Plan Admission Admit Date/Time: 04/14/23 20:30 Primary Reason for Your Visit: Incision and drainage of perirectal abscess Attending Provider: Prince Villanueva Primary Care Provider: Humberto Dos Santos Discharge Orders/Prescriptions Prescriptions: New amoxicillin-pot clavulanate 500-125 mg Tablet 1 tab PO Q8 7 Days Qty: 21 0RF oxycodone 5 mg Tablet 5 mg PO Q6H PRN PRN (Reason: Pain Score 6-10) 3 Days Qty: 10 0RF Continued atorvastatin 20 mg tablet 20 mg PO DAILY fluoxetine 40 mg capsule 60 mg PO QDAY multivitamin 1 EACH tablet 1 ea PO DAILY esomeprazole magnesium 40 MG capsule 40 mg PO QHS fenofibrate 50 MG capsule 54 mg PO DAILY metformin 500 mg tablet 1,000 mg PO BID doxepin 10 MG capsule 10 mg PO QHS olanzapine 2.5 MG tablet 2.5 mg PO QHS zonisamide 25 MG capsule 25 mg PO DAILY Fish Oil 1,000 mg Capsule 1,000 mg PO BID empagliflozin 25 MG tablet 25 mg PO DAILY Qty: 30 0RF buspirone 15 mg tablet Patient Comments: TAKE 1 TABLET BY MOUTH TWICE A DAY insulin lispro protamin-lispro 100 unit/mL (75-25) insulin pen SUBCUT methylphenidate HCl 10 mg capsule,ER biphasic 50-50 PO Patient Comments: TAKE 1 CAPSULE BY MOUTH EVERY DAY duloxetine 60 mg capsule,delayed release(DR/EC) PO Patient Comments: TAKE 1 CAPSULE BY MOUTH ONCE DAILY fluticasone propionate 50 mcg/actuation spray,suspension 1 spray intranasal DAILY PRN (Reason: allergic symptoms) Rx Instructions: administer into each nostril Referrals / Follow Up: Humberto Dos Santos MD [Primary Care Provider] - Disposition Disposition (needs filled in before D/C Order can be placed): Home, Self Care Charges/Coding Visit Charges Inpatient E&M: 81223 Disch Hosp
[2023-04-15] MEDS: Acetaminophen 500 MG Tablet PO (11:09)
[2023-04-15 11:34] VITALS: BP 113/77; PULSE 87; RESP 16; TEMP 37.4; O2SAT 95
[2023-04-15 11:38] LABS: Bedside Glucose 353 mg/dL (74-106)
[2023-04-15] MEDS: Amox/Clavulanate 500 MG Tablet PO (12:35)
== END 2023-04-15 12:46 | disposition home or self-care (01) ==
LOC: ED 14:29 → SDC 16:54 → ACINP 16:55 → MS3 18:26 → SDC 18:27 → MS3 20:44
PROVIDERS: Physician Assistant; Admitting Provider Surgery; Emergency Provider Emergency Medicine; PCP Family Medicine; Visit Provider Surgery
PROC: (CPT 46040; principal; 2023-04-14 19:00)
DX: K61.1 Rectal abscess (principal); E11.9 Type 2 diabetes mellitus without complications; Z79.84 Long term (current) use of oral hypoglycemic drugs; E78.5 Hyperlipidemia, unspecified; M79.89 Other specified soft tissue disorders; G47.33 Obstructive sleep apnea (adult) (pediatric); K21.9 Gastro-esophageal reflux disease without esophagitis; E66.9 Obesity, unspecified; Z79.899 Other long term (current) drug therapy
CPT/HCPCS: 46040; 00902; 36415; 72193; 80048; 82962; 85025; 87070; 87075; 87077; 87186; 87205; 96361; 96365; 96366; 96375; 99221; 99283; J7030; J7050; J7120; A4216; G0378; J2405

== ENCOUNTER 2024-03-10 11:13 | Emergency (ER) | payer BC, SELFPAY ==
[2024-03-10] VITALS (10 sets, daily range): BP systolic 121–184; BP diastolic 56–99; PULSE 84–110; RESP 15–24; TEMP 36.4–36.8; O2SAT 92–97; BMI 37.9
--- NOTE | 2024-03-10 12:07 | CT_ITS ---
HISTORY: Rectal abscess. TECHNIQUE: Helically acquired images were obtained of the pelvis after the intravenous administration of 100 mL Isovue-370. A radiation dose optimization technique was used for this scan. 589 images. COMPARISON: 04/14/2023. FINDINGS: VESSELS: Mild atherosclerosis. BOWEL/PERITONEUM: Appendectomy. Colonic diverticulosis without perisigmoid inflammation. No significant free fluid in the pelvis. PELVIC ORGANS: Unremarkable. ABDOMINAL WALL: 2 x 3.9 cm left perianal fluid collection with surrounding stranding extending to the medial buttock . Mildly prominent inguinal lymph nodes, likely reactive. No subcutaneous emphysema of the scrotum or perineum. BONES: No acute fracture or dislocation. No cortical erosion. CT/Pelvis WITH IV Contrast IMPRESSION: Left perianal abscess with left buttock cellulitis. Electronically Signed: Vivian Hilario MD at 13:15 EDT ,
[2024-03-10] MEDS: Ondansetron 4 MG/2 ML Vial IV (12:16)
[2024-03-10] MEDS: 0.9% Normal Saline (1000mL) 1,000 ML 999 ML IV (12:16)
[2024-03-10] MEDS: Morphine 4 MG/ML Syringe IV (12:16)
--- NOTE | 2024-03-10 12:19 | EX.ED.DYSGE1 ---
HPI <ANDERSON Jones - Last Filed: 03/10/24 15:54> History of Present Illness Chief Complaint: Abscess Narrative Narrative: Patient is a 48-year-old male with history of anxiety, depression, diabetes, obesity who presents to the emergency department for 3 to 4 days of worsening rectal pain, secondary to abscess. Patient had something similar a year ago, had to go to the operating room secondary to the closeness of the rectum. Patient states over the last 3 to 4 days, is having difficulty with any sitting, using the restroom. Patient states he has no fever or chills. Patient the pain is severe. [facility] <ANDERSON Jones - Last Filed: 03/10/24 15:54> [facility] Medical History (Updated 03/10/24 @ 15:26 by ANDERSON Jones) History of rectal abscess Multiple thyroid nodules Restrictive airway disease Abnormal chest CT Pneumonia Acute respiratory failure Shortness of breath Community acquired pneumonia Chronic headache Acute respiratory failure with hypoxia GERD (gastroesophageal reflux disease) Anxiety and depression Diabetes mellitus, type II Obesity (BMI 30-39.9) HLD (hyperlipidemia) MIKE (obstructive sleep apnea) Home Medications ?Medication ?Instructions ?Recorded ?Last Taken ?Type esomeprazole magnesium 40 mg 40 mg PO QHS gerd 10/10/17 10/19/18 History capsule,delayed release fenofibrate 50 mg capsule 54 mg PO DAILY cholesterol 10/10/17 10/20/18 History multivitamin 1 ea PO DAILY supplement 10/10/17 10/20/18 History atorvastatin 20 mg tablet 20 mg PO DAILY 03/22/18 10/20/18 History fluoxetine 40 mg capsule 60 mg PO QDAY 03/22/18 10/20/18 History metformin 500 mg tablet 1,000 mg PO BID diabetes 03/22/18 10/20/18 History Fish Oil 1,000 mg Capsule 1,000 mg PO BID 10/20/18 10/20/18 History doxepin 10 mg capsule 10 mg PO QHS 10/20/18 10/19/18 History olanzapine 2.5 mg tablet 2.5 mg PO QHS 10/20/18 10/19/18 History zonisamide 25 mg capsule 25 mg PO DAILY 10/20/18 10/20/18 History empagliflozin 25 mg tablet 25 mg PO DAILY #30 tabs 10/22/18 Unknown Rx buspirone 15 mg tablet mg 04/14/23 Unknown History duloxetine 60 mg capsule,delayed mg PO 04/14/23 Unknown History release fluticasone propionate 50 1 spray intranasal DAILY PRN 04/14/23 Unknown History mcg/actuation nasal allergic symptoms spray,suspension insulin lispro protamine-lispro subcut 04/14/23 Unknown History 100 unit/mL (75-25) subcutaneous pen methylphenidate HCl 10 mg biphasic mg PO 04/14/23 Unknown History 50-50 capsule,extended release amoxicillin 875 mg-potassium 1 tab PO Q12H #14 tabs 03/10/24 Unknown Rx clavulanate 125 mg tablet oxycodone-acetaminophen 5 mg-325 1 - 2 tab PO Q6H PRN pain 3 days 03/10/24 Unknown Rx mg tablet #14 tabs Allergy/AdvReac Type Severity Reaction Status Date / Time citalopram Allergy Unknown Unknown Verified 03/10/24 11:16 venlafaxine Allergy Unknown Unknown Verified 03/10/24 11:16 metoclopramide (From Reglan) Allergy weirds me Verified 03/10/24 11:16 out sertraline (From Zoloft) Allergy sexual Verified 03/10/24 11:16 side effects topiramate (From Topamax) Allergy Unknown Verified 03/10/24 11:16 Family History Father Colon cancer at age 53 Heart disease Myocardial infarction Surgical History (Updated 04/25/23 @ 13:09 by Cynthia Martinez) Hx of drainage of abscess (~04/2023) Hx of appendectomy Hx of tonsillectomy Social History Smoking Status: Never smoker second hand exposure: No alcohol intake: never substance use type: does not use caffeine: Yes what type of physical activity do you participate in: none frequency: does not exercise seatbelt use: always ROS <ANDERSON Jnoes - Last Filed: 03/10/24 15:54> ROS ED ROS Narrative Constitutional: Negative for fever, chills, weight loss, weakness Eyes: Negative for vision loss, vision change, double vision ENT: Negative for any sore throat, ear pain, congestion Cardiovascular: Negative for any chest pain, tightness, palpitations Respiratory: Negative for any cough, sputum production, hemoptysis, dyspnea, dyspnea on exertion, orthopnea Gastrointestinal: Negative for any abdominal pain, nausea, vomiting, diarrhea, constipation, blood in stool, blood in vomit : Negative for any urinary frequency, dysuria, retention, blood in urine Muscle skeletal: Negative for any neck pain, back pain Neurological: Negative for any headache, syncope, dizziness Skin: Negative for any rashes, itching, abrasions, lacerations. Positive for abscess to the left buttock Psychiatric: Negative for any depression, anxiety, stress, suicidal ideation, homicidal ideation Hematologic: Negative for any excessive bruising, easy bleeding EXAM <ANDERSON Jones - Last Filed: 03/10/24 15:54> Physical Exam Narrative Exam Narrative: Vital signs reviewed. HEET: Head normocephalic atraumatic, TMs clear bilaterally. Posterior pharynx is clear, moist mucous membranes. Nares clear bilaterally. Neck: Supple with no lymphadenopathy or tenderness. No signs of meningismus. Cardiac: Regular rate and rhythm no murmurs gallops or rubs, equal peripheral pulses bilaterally. Respiratory: Lungs clear to auscultation bilaterally. No chest tenderness. Abdomen: Soft, nontender, nondistended. No abdominal bruit or pulsatile masses. No hepatosplenomegaly Extremities: No peripheral edema, no signs of gross trauma or deformity. Active full range of motion of all extremities. Neuro: Cranial nerves II through XII intact, no focal neurological deficits. Skin: Clean dry and intact with no rash, purpura, petechiae, vesicles or pustules. Backs/flank: No CVA tenderness, no midline spinal tenderness, no deformity. Psych: Normal mood and affect. No SI, HI or acute psychosis. Rectal: Patient has cellulitis to the inferior left lower buttock, there is a substantial abscess close to the rectum, patient does have some rectal pain. There is no gross drainage at this time. Const Vital Signs: 03/10/24 11:13 03/10/24 11:15 03/10/24 12:58 Temperature 97.5 F L 97.5 F L 98.2 F Temperature Source Temporal Temporal Temporal Pulse Rate 110 H 105 H 84 Pulse Rate [1 (Initial Baseline)] Pulse Rate [3] Respiratory Rate 18 18 18 Respiratory Rate [3] Blood Pressure 184/99 H 184/99 H 132/84 H Blood Pressure [1 (Initial Baseline)] Blood Pressure [3] Blood Pressure Mean 127 127 100 Pulse Ox 95 95 97 Oxygen Delivery Method Room Air Room Air Room Air Oxygen Flow Rate (L/min) 03/10/24 14:24 03/10/24 14:26 03/10/24 14:37 Temperature Temperature Source Pulse Rate 91 Pulse Rate [1 (Initial Baseline)] 100 Pulse Rate [3] 93 Respiratory Rate 24 H Respiratory Rate [3] 15 Blood Pressure 139/78 H Blood Pressure [1 (Initial Baseline)] 140/82 H Blood Pressure [3] 131/80 H Blood Pressure Mean Pulse Ox 92 Oxygen Delivery Method Room Air Nasal Cannula Oxygen Flow Rate (L/min) 3 03/10/24 14:42 03/10/24 14:47 03/10/24 15:00 Temperature Temperature Source Pulse Rate 84 Pulse Rate [1 (Initial Baseline)] Pulse Rate [3] Respiratory Rate 18 Respiratory Rate [3] Blood Pressure 138/97 H Blood Pressure [1 (Initial Baseline)] Blood Pressure [3] Blood Pressure Mean 110 Pulse Ox 96 Oxygen Delivery Method Room Air Room Air Nasal Cannula Oxygen Flow Rate (L/min) 3 03/10/24 15:00 03/10/24 16:12 Temperature 97.8 F Temperature Source Pulse Rate 88 93 Pulse Rate [1 (Initial Baseline)] Pulse Rate [3] Respiratory Rate 16 18 Respiratory Rate [3] Blood Pressure 138/97 H 145/82 H Blood Pressure [1 (Initial Baseline)] Blood Pressure [3] Blood Pressure Mean 110 103 Pulse Ox 95 96 Oxygen Delivery Method Nasal Cannula Oxygen Flow Rate (L/min) 2 <Dr. Braeden Reid, DO - Last Filed: 03/10/24 16:23> Physical Exam Const Vital Signs: 03/10/24 11:13 03/10/24 11:15 03/10/24 12:58 Temperature 97.5 F L 97.5 F L 98.2 F Temperature Source Temporal Temporal Temporal Pulse Rate 110 H 105 H 84 Pulse Rate [1 (Initial Baseline)] Pulse Rate [3] Respiratory Rate 18 18 18 Respiratory Rate [3] Blood Pressure 184/99 H 184/99 H 132/84 H Blood Pressure [1 (Initial Baseline)] Blood Pressure [3] Blood Pressure Mean 127 127 100 Pulse Ox 95 95 97 Oxygen Delivery Method Room Air Room Air Room Air Oxygen Flow Rate (L/min) 03/10/24 14:24 03/10/24 14:26 03/10/24 14:37 Temperature Temperature Source Pulse Rate 91 Pulse Rate [1 (Initial Baseline)] 100 Pulse Rate [3] 93 Respiratory Rate 24 H Respiratory Rate [3] 15 Blood Pressure 139/78 H Blood Pressure [1 (Initial Baseline)] 140/82 H Blood Pressure [3] 131/80 H Blood Pressure Mean Pulse Ox 92 Oxygen Delivery Method Room Air Nasal Cannula Oxygen Flow Rate (L/min) 3 03/10/24 14:42 03/10/24 14:47 03/10/24 15:00 Temperature Temperature Source Pulse Rate 84 Pulse Rate [1 (Initial Baseline)] Pulse Rate [3] Respiratory Rate 18 Respiratory Rate [3] Blood Pressure 138/97 H Blood Pressure [1 (Initial Baseline)] Blood Pressure [3] Blood Pressure Mean 110 Pulse Ox 96 Oxygen Delivery Method Room Air Room Air Nasal Cannula Oxygen Flow Rate (L/min) 3 03/10/24 15:00 03/10/24 16:12 Temperature 97.8 F Temperature Source Pulse Rate 88 93 Pulse Rate [1 (Initial Baseline)] Pulse Rate [3] Respiratory Rate 16 18 Respiratory Rate [3] Blood Pressure 138/97 H 145/82 H Blood Pressure [1 (Initial Baseline)] Blood Pressure [3] Blood Pressure Mean 110 103 Pulse Ox 95 96 Oxygen Delivery Method Nasal Cannula Oxygen Flow Rate (L/min) 2 [facility] <ANDERSON Jones - Last Filed: 03/10/24 15:54> [facility] Lab Data Labs: Laboratory Results - last 24 hr 03/10/24 12:23 WBC 9.5 RBC 5.04 Hgb 15.5 Hct 45.1 MCV 89.5 MCH 30.8 MCHC 34.4 RDW Std Deviation 39.0 RDW Coeff of Katie 12.1 Plt Count 219 MPV 13.0 H Immature Gran % (Auto) 0.400 Neut % (Auto) 72.5 H Lymph % (Auto) 19.8 Price % (Auto) 6.0 Eos % (Auto) 0.8 Baso % (Auto) 0.5 Absolute Neuts (auto) 6.9 Absolute Lymphs (auto) 1.88 Nucleated RBC % 0 Sodium 136 Potassium 3.8 Chloride 104 Carbon Dioxide 25.0 Anion Gap 7 BUN 12 Creatinine 0.84 Estim Creat Clear Calc 154.93 Est GFR (MDRD) Af Amer 124 Est GFR (MDRD) Non-Af 103 BUN/Creatinine Ratio 14.3 Glucose 288 H Calcium 9.1 Radiography Diagnostic Testing: Clinical Impression(s) from Imaging Studies Pelvis CT 03/10/24 12:07 IMPRESSION: Left perianal abscess with left buttock cellulitis. Electronically Signed: Vivian Hilario MD at 13:15 EDT , Treatment and Re-Evaluation :: Differential diagnosis includes however is not limited to: Cortes's gangrene, rectal abscess, perirectal abscess, cellulitis Patient does appear to be uncomfortable secondary to rectal abscess. Patient's vital signs are stable he looks nontoxic. I am concerned for substantial cellulitis, how deep the rectal abscess may go. Patient will receive basic laboratory values, CT scan of the pelvis as well as IV fluids, Zofran and pain medicine. All radiologic examinations were read, reviewed by the emergency department attending. From these reads, a plan of care will be put in place. Patient CBC was unremarkable, patient's chemistries were unremarkable. Patient CT scan shows left perianal abscess with left buttock cellulitis. Secondary to this finding, and the recent history 1 year ago, I will contact surgery for further evaluation. Surgery did come down to evaluate the patient, patient will be consciously sedated with propofol. Patient will then be evaluated, and reevaluated. <Dr. Braeden Reid, DO - Last Filed: 03/10/24 16:23> [facility] Narrative Medical decision making narrative: Differential diagnosis includes however is not limited to: Cortes's gangrene, rectal abscess, perirectal abscess, cellulitis Patient does appear to be uncomfortable secondary to rectal abscess. Patient's vital signs are stable he looks nontoxic. I am concerned for substantial cellulitis, how deep the rectal abscess may go. Patient will receive basic laboratory values, CT scan of the pelvis as well as IV fluids, Zofran and pain medicine. All radiologic examinations were read, reviewed by the emergency department attending. From these reads, a plan of care will be put in place. Patient CBC was unremarkable, patient's chemistries were unremarkable. Patient CT scan shows left perianal abscess with left buttock cellulitis. Secondary to this finding, and the recent history 1 year ago, I will contact surgery for further evaluation. Surgery did come down to evaluate the patient, patient will be consciously sedated with propofol. Patient will then be evaluated, and reevaluated. This patient was seen with a PA/[employer] Individually assessed they patient including history and physical. I have reviewed everything on the chart that is available and agree with the documentation provided by the PA/[employer] F[employer]ER including discussion about the assessment, treatment plan, discussion, and return precautions. Patient presenting with perirectal abscess which has been seen by Dr. Villanueva before. Last time he was taken to the OR and this was mainly to make sure he did not have a fistula. This appears to be recurrent and is in the same space it was last time. Lab work was unremarkable. Differential as above. Discussed the patient with Dr. Hansen and he was willing to come do incision and drainage but requested conscious sedation. Patient was consented for conscious sedation with propofol. Timeout was called prior to the procedure. Required 120 mg of propofol for sedation. Sedation time 9 minutes. Patient tolerated procedure well and was recovered. At this point since he is awake and alert I will have him follow-up with Dr. Delgado for him. Please see the bottoms surgical notes. Discharged home in stable condition. Impression: 1. Perianal abscess Lab Data Attestation: I reviewed the patient's lab results. Labs: Laboratory Results - last 24 hr 03/10/24 12:23 WBC 9.5 RBC 5.04 Hgb 15.5 Hct 45.1 MCV 89.5 MCH 30.8 MCHC 34.4 RDW Std Deviation 39.0 RDW Coeff of Katie 12.1 Plt Count 219 MPV 13.0 H Immature Gran % (Auto) 0.400 Neut % (Auto) 72.5 H Lymph % (Auto) 19.8 Price % (Auto) 6.0 Eos % (Auto) 0.8 Baso % (Auto) 0.5 Absolute Neuts (auto) 6.9 Absolute Lymphs (auto) 1.88 Nucleated RBC % 0 Sodium 136 Potassium 3.8 Chloride 104 Carbon Dioxide 25.0 Anion Gap 7 BUN 12 Creatinine 0.84 Estim Creat Clear Calc 154.93 Est GFR (MDRD) Af Amer 124 Est GFR (MDRD) Non-Af 103 BUN/Creatinine Ratio 14.3 Glucose 288 H Calcium 9.1 Radiography Diagnostic Testing: Clinical Impression(s) from Imaging Studies Pelvis CT 03/10/24 12:07 IMPRESSION: Left perianal abscess with left buttock cellulitis. Electronically Signed: Vivian Hilario MD at 13:15 EDT , Discharge Plan Triage Chief Complaint: Abscess ED Midlevel Provider: Mani Blum ED Provider: Braeden Reid Dx/Rx/DC Orders Clinical Impression: Abscess, perianal Instructions: ED Cellulitis, ED ABSCESS Tressa-Anal IandD Prescriptions: New amoxicillin-pot clavulanate 875-125 mg tablet 1 tab PO Q12H Qty: 14 0RF oxycodone-acetaminophen 5-325 mg tablet 1 - 2 tab PO Q6H PRN (Reason: pain) 3 Days Qty: 14 0RF Continued atorvastatin 20 mg tablet 20 mg PO DAILY fluoxetine 40 mg capsule 60 mg PO QDAY multivitamin 1 EACH tablet 1 ea PO DAILY esomeprazole magnesium 40 MG capsule 40 mg PO QHS fenofibrate 50 MG capsule 54 mg PO DAILY metformin 500 mg tablet 1,000 mg PO BID doxepin 10 MG capsule 10 mg PO QHS olanzapine 2.5 MG tablet 2.5 mg PO QHS zonisamide 25 MG capsule 25 mg PO DAILY Fish Oil 1,000 mg Capsule 1,000 mg PO BID empagliflozin 25 MG tablet 25 mg PO DAILY Qty: 30 0RF buspirone 15 mg tablet Patient Comments: TAKE 1 TABLET BY MOUTH TWICE A DAY insulin lispro protamin-lispro 100 unit/mL (75-25) insulin pen SUBCUT methylphenidate HCl 10 mg capsule,ER biphasic 50-50 PO Patient Comments: TAKE 1 CAPSULE BY MOUTH EVERY DAY duloxetine 60 mg capsule,delayed release(DR/EC) PO Patient Comments: TAKE 1 CAPSULE BY MOUTH ONCE DAILY fluticasone propionate 50 mcg/actuation spray,suspension 1 spray intranasal DAILY PRN (Reason: allergic symptoms) Rx Instructions: administer into each nostril Primary Care Provider: Humberto Dos Santos Referrals: Humberto Dos Santos MD [Primary Care Provider] - Maranda Hansen MD [Med Staff - Active Staff] - (Call the office [phone] for a follow-up appointment for Monday.) Print Language: Indonesian Disposition Disposition: Home, Self Care
[2024-03-10 12:33] LABS: Absolute Lymphocyte Count 1.88 X10^3/uL (0.83-4.51); Absolute Neutrophil Count 6.9 X10^3/uL (2.0-7.7); Basophil# 0.05 X10^3/uL; Basophil% 0.5 % (0-1); Eosinophil# 0.08 X10^3/uL; Eosinophils% 0.8 % (0-5); Hematocrit 45.1 % (40-54); Hemoglobin 15.5 g/dL (13.0-16.5); Lymphocyte # 1.88 X10^3/ul (0.83-4.51); Lymphocyte % 19.8 % (19-41); Mean Corp Hgb Conc 34.4 g/dL (32-36); Mean Corpuscular Hgb 30.8 pg (27.0-32.0); Mean Corpuscular Volume 89.5 fL (80-94); Monocyte# 0.57 X10^3/uL; NRBC Flagged by Analyzer 0 % (0-5); Neutrophil # 6.89 X10^3/uL (2.7-7.7); Neutrophil % 72.5 % (47-70); Platelet Count 219 K/mm3 (150-450); RBC Distribution Width CV 12.1 % (11.6-14.6); Red Blood Count 5.04 M/mm3 (4.6-6.2); White Blood Count 9.5 K/mm3 (4.4-11.0)
[2024-03-10 12:47] LABS: Anion Gap 7 (5-15); BUN 12 mg/dL (7-18); BUN/Creat Ratio 14.3 RATIO (10-20); Calcium,Total 9.1 mg/dL (8.5-10.1); Chloride 104 mmol/L (98-107); Creatinine, Serum 0.84 mg/dL (0.70-1.30); EST Glomerular Filtration Rate 103 mL/min (>60); Est Glom Filt Rate - Afr Amer 124 mL/min (>60); Estimated Creatinine Clearance 154.93 ml/min; Glucose 288 mg/dL (74-106); Potassium 3.8 mmol/L (3.5-5.1); Sodium Level 136 mmol/L (136-145)
--- NOTE | 2024-03-10 14:48 | EX.PCM.CON.S ---
Assessment & Plan Assessment/Plan (1) Perirectal abscess: PLAN: Plan Discussed with patient and his plan for incision and drainage of perirectal abscess with sedation in the ER. Risk include not limited to, bleeding, infection, need for further surgery, recurrent abscesses. Patient and his had no further questions this time. They were agreeable plan. Maranda Hansen M.D. Pager: [phone] [facility] [address] [place] [address], Outpatient [place], [address] [place] [address] Office: [phone] HPI Consult Data Date of Consult: 03/10/24 HPI Narrative HPI Narrative: BIANCA DELAROSA, is a 48 M who presents to the ER due to left perirectal pain for the last 2 to 3 days. Patient did have a history of perirectal abscess which was drained in the OR in April 2023 no obvious fistula was found at that point. Patient denies any drainage but does have increased pain. Rates it currently a 01/16. CT abdomen pelvis was done showed a left perirectal abscess 2 cm x 4 cm. [facility] Medical History (Updated 03/10/24 @ 14:[address] Maranda Hansen MD) History of rectal abscess Multiple thyroid nodules Restrictive airway disease Abnormal chest CT Pneumonia Acute respiratory failure Shortness of breath Community acquired pneumonia Chronic headache Acute respiratory failure with hypoxia GERD (gastroesophageal reflux disease) Anxiety and depression Diabetes mellitus, type II Obesity (BMI 30-39.9) HLD (hyperlipidemia) MIKE (obstructive sleep apnea) Home Medications ?Medication ?Instructions ?Recorded ?Last Taken ?Type esomeprazole magnesium 40 mg 40 mg PO QHS gerd 10/10/17 10/19/18 History capsule,delayed release fenofibrate 50 mg capsule 54 mg PO DAILY cholesterol 10/10/17 10/20/18 History multivitamin 1 ea PO DAILY supplement 10/10/17 10/20/18 History atorvastatin 20 mg tablet 20 mg PO DAILY 03/22/18 10/20/18 History fluoxetine 40 mg capsule 60 mg PO QDAY 03/22/18 10/20/18 History metformin 500 mg tablet 1,000 mg PO BID diabetes 03/22/18 10/20/18 History Fish Oil 1,000 mg Capsule 1,000 mg PO BID 10/20/18 10/20/18 History doxepin 10 mg capsule 10 mg PO QHS 10/20/18 10/19/18 History olanzapine 2.5 mg tablet 2.5 mg PO QHS 10/20/18 10/19/18 History zonisamide 25 mg capsule 25 mg PO DAILY 10/20/18 10/20/18 History empagliflozin 25 mg tablet 25 mg PO DAILY #30 tabs 10/22/18 Unknown Rx buspirone 15 mg tablet mg 04/14/23 Unknown History duloxetine 60 mg capsule,delayed mg PO 04/14/23 Unknown History release fluticasone propionate 50 1 spray intranasal DAILY PRN 04/14/23 Unknown History mcg/actuation nasal allergic symptoms spray,suspension insulin lispro protamine-lispro subcut 04/14/23 Unknown History 100 unit/mL (75-25) subcutaneous pen methylphenidate HCl 10 mg biphasic mg PO 04/14/23 Unknown History 50-50 capsule,extended release Allergy/AdvReac Type Severity Reaction Status Date / Time citalopram Allergy Unknown Unknown Verified 03/10/24 11:16 venlafaxine Allergy Unknown Unknown Verified 03/10/24 11:16 metoclopramide (From Reglan) Allergy weirds me Verified 03/10/24 11:16 out sertraline (From Zoloft) Allergy sexual Verified 03/10/24 11:16 side effects topiramate (From Topamax) Allergy Unknown Verified 03/10/24 11:16 Family History Father Colon cancer at age 53 Heart disease Myocardial infarction Surgical History (Updated 04/25/23 @ 13:09 by Cynthia Martinez) Hx of drainage of abscess (~04/2023) Hx of appendectomy Hx of tonsillectomy Social History Smoking Status: Never smoker second hand exposure: No alcohol intake: never substance use type: does not use caffeine: Yes what type of physical activity do you participate in: none frequency: does not exercise seatbelt use: always Physical Exam Const alert, oriented x3 and no apparent distress HEENT normocephalic and head/scalp atraumatic Resp normal respiratory effort Cardio regular rate GI soft to palpation; Negative for non-distended GI Narrative: Left perirectal abscess fluctuant area about 2 and half centimeters by 2 and half centimeters at 3-4 o'clock on the left. Positive erythema, tender?patient appears to have a skin blister about 3 cm away from the anus to the area of fluctuance. Palpation: Negative for tender or guarding Extremity no clubbing, cyanosis or edema Neuro CN's II-XII intact bilaterally Psych mental status grossly normal Lab / Micro Data 03/10/24 12:23 03/10/24 12:23 Labs: Laboratory Results - last 24 hr 03/10/24 12:23: WBC 9.5, RBC 5.04, Hgb 15.5, Hct 45.1, MCV 89.5, MCH 30.8, MCHC 34.4, RDW Std Deviation 39.0, RDW Coeff of Katie 12.1, Plt Count 219, MPV 13.0 H, Immature Gran % (Auto) 0.400, Neut % (Auto) 72.5 H, Lymph % (Auto) 19.8, [place] % (Auto) 6.0, Eos % (Auto) 0.8, Baso % (Auto) 0.5, Absolute Neuts (auto) 6.9, Absolute Lymphs (auto) 1.88, Nucleated RBC % 0, Sodium 136, Potassium 3.8, Chloride 104, Carbon Dioxide 25.0, Anion Gap 7, BUN 12, Creatinine 0.84, Estim Creat Clear Calc 154.93, Est GFR (MDRD) Af Amer 124, Est GFR (MDRD) Non-Af 103, BUN/Creatinine Ratio 14.3, Glucose 288 H, Calcium 9.1 Imaging Radiology Impression Pelvis CT 03/10/24 12:07 IMPRESSION: Left perianal abscess with left buttock cellulitis. Electronically Signed: Vivian Hilario MD at 13:15 EDT ,
--- NOTE | 2024-03-10 14:51 | PCM.OPRPT ---
Report of Operation Date of Procedure: 03/10/24 Pre-Operative Diagnosis: Left perirectal abscess Post-Operative Diagnosis: Same Surgery/Procedure Performed:: Incision and drainage of left perirectal abscess Surgeon: Maranda Hansen Type of Anesthesia: Local MAC Anesthesiologist: Braeden Reid Special Medications: Getting Zosyn IV in the ER for left perirectal abscess, sedation per ER physician Specimen's removed: Culture of blood perirectal abscess for anaerobic aerobic Estimated Blood Loss (mL): <10 cc Description of Procedure: Informed consent was obtained. Patient was in the left lateral decubitus position. MAC anesthesia was induced per ER physician. Local anesthesia of 1% lidocaine was infiltrated at the area of planned incision after prepped with Betadine. 15 blade scalpel was used to make incision in a T shape over the fluctuant area about 25 cc of mixture of purulent and maroon bloody drainage expressed. Cultures were obtained. This was irrigated with saline. Quarter inch packing was then placed. With 4 x 4/ABD pad. Patient tolerated procedure well. Complications none
--- NOTE | 2024-03-10 14:54 | DCINST_ITS ---
Discharge Instructions Diet Discharge Diet: Light diet - advance as tolerated Dressing / Incision Call your doctor if your incision/area has: Increased Pain/ Swelling, Increased Redness and Swelling at the incision site Change Dressing in: 1 day (Change packing tomorrow-change twice daily) Additional Dressing/Incision Instructions:: Encourage sitz bath's as well as flushing with 10 cc of saline at time of packing change. Follow Up Care Please Follow Up With: Maranda Hansen MD When: Call the office for a follow-up appointment on Monday. [phone] Test Results: Test results from this visit will be discussed in further detail at your follow- up appointment, if applicable. Discharge Plan Triage Chief Complaint: Abscess ED Midlevel Provider: Mani Blum ED Provider: Braeden Reid Dx/Rx/DC Orders Prescriptions: New amoxicillin-pot clavulanate 875-125 mg tablet 1 tab PO Q12H Qty: 14 0RF oxycodone-acetaminophen 5-325 mg tablet 1 - 2 tab PO Q6H PRN (Reason: pain) 3 Days Qty: 14 0RF Continued atorvastatin 20 mg tablet 20 mg PO DAILY fluoxetine 40 mg capsule 60 mg PO QDAY multivitamin 1 EACH tablet 1 ea PO DAILY esomeprazole magnesium 40 MG capsule 40 mg PO QHS fenofibrate 50 MG capsule 54 mg PO DAILY metformin 500 mg tablet 1,000 mg PO BID doxepin 10 MG capsule 10 mg PO QHS olanzapine 2.5 MG tablet 2.5 mg PO QHS zonisamide 25 MG capsule 25 mg PO DAILY Fish Oil 1,000 mg Capsule 1,000 mg PO BID empagliflozin 25 MG tablet 25 mg PO DAILY Qty: 30 0RF buspirone 15 mg tablet Patient Comments: TAKE 1 TABLET BY MOUTH TWICE A DAY insulin lispro protamin-lispro 100 unit/mL (75-25) insulin pen SUBCUT methylphenidate HCl 10 mg capsule,ER biphasic 50-50 PO Patient Comments: TAKE 1 CAPSULE BY MOUTH EVERY DAY duloxetine 60 mg capsule,delayed release(DR/EC) PO Patient Comments: TAKE 1 CAPSULE BY MOUTH ONCE DAILY fluticasone propionate 50 mcg/actuation spray,suspension 1 spray intranasal DAILY PRN (Reason: allergic symptoms) Rx Instructions: administer into each nostril Primary Care Provider: Humberto Dos Santos Referrals: Humberto Dos Santos MD [Primary Care Provider] - Maranda Hansen MD [Med Staff - Active Staff] - (Call the office [phone] for a follow-up appointment for Monday.) Print Language: Kyrgyz
[2024-03-10] MEDS: Propofol 200 MG/20 ML Vial IV BOLUS (14:55)
[2024-03-10] MEDS: Piperacil/Tazobactam 4.5 GM in 0.9% Normal Saline (100mL MB+) 100 ML IV (15:02)
[2024-03-10] MEDS: oxyCODONE 5 MG Tablet PO (16:28)
[2024-03-10] MEDS: Amox/Clavulanate 875 MG Tablet PO (16:28)
== END 2024-03-10 17:21 | disposition home or self-care (01) ==
PROVIDERS: Nurse Practitioner; Emergency Provider Student in an Organized Health Care Education/Training Program; PCP Family Medicine; Visit Provider Student in an Organized Health Care Education/Training Program
DX: K61.1 Rectal abscess (principal); E11.9 Type 2 diabetes mellitus without complications; Z79.4 Long term (current) use of insulin; L03.317 Cellulitis of buttock; F41.9 Anxiety disorder, unspecified; E66.9 Obesity, unspecified; E78.5 Hyperlipidemia, unspecified; G47.33 Obstructive sleep apnea (adult) (pediatric); F32.A Depression, unspecified; Z79.84 Long term (current) use of oral hypoglycemic drugs; Z79.899 Other long term (current) drug therapy
CPT/HCPCS: 46040; 10060; 72193; 80048; 85025; 87070; 87075; 87077; 87186; 87205; 96361; 96365; 96375; 99284; J7030; J7050; Q9967; A4216; J2405

== ENCOUNTER 2025-03-16 12:06 | Inpatient (IN) | payer BC, SELFPAY ==
[2025-03-16] VITALS (17 sets, daily range): BP systolic 109–151; BP diastolic 69–98; PULSE 81–110; RESP 16–27; TEMP 36.6–37.3; O2SAT 92–99; BMI 34.7
--- NOTE | 2025-03-16 12:20 | EKG12_ITS ---
Test Reason : PALPS Blood Pressure : */* mmHG Vent. Rate : 90 BPM Atrial Rate : 90 BPM P-R Int : 186 ms QRS Dur : 104 ms QT Int : 376 ms P-R-T Axes : 46 -15 55 degrees QTcB Int : 459 ms Normal sinus rhythm Minimal voltage criteria for LVH, may be normal variant ( R in aVL ) POOR R WAVE PROGRESSION Abnormal ECG Confirmed by Prince Vega ([id number]), manuscript editor JENN SIDHU ([id number]) on 03/17/2025 9:36:47 AM Referred By: RIKY Confirmed By: Prince Vega
--- NOTE | 2025-03-16 12:37 | RAD_ITS ---
PROCEDURE: CHEST 1 VIEW (PORTABLE) 03/16/2025 REASON FOR EXAM: CHEST PAIN Palpitations, dizziness and shortness of breath TECHNIQUE: Frontal view of the chest. COMPARISON: CT chest 12/31/2018 FINDINGS: Hardware: EKG lead wires Heart: Normal size Lungs: Clear Bones: Unremarkable Other: RAD/Chest 1 View (Portable) IMPRESSION: No acute process Reading [facility]
--- OUTSIDE RECORDS SUMMARY | 2025-03-16 12:39 | XMS RPT_ITS | CCD ---
Author Organization [facility] Care Team Providers Care Pattern Technician Name Role Phone Alejandro Calderon Unavailable Unavailable Humberto Jackson Unavailable Unavailable Humberto Jackson Unavailable Unavailable Ortiz, Nelly Unavailable Unavailable Humberto Jackson Unavailable Unavailable Humberto Jackson Unavailable Unavailable Humberto Jackson MD Primary Care Provider Humberto Jackson MD Primary Care Provider [phone] Humberto Jackson MD Primary Care Provider Humberto Jackson MD Primary Care Provider [phone] Dr. Humberto Jackson Primary Care Provider Dr. Macey Merchant Emergency Provider Dr. Prince Villanueva Attending Provider Dr. Prince Villanueva Other Provider Dr. Prince Villanueva Admit Provider Humberto Jackson MD Primary Care Provider Andre MOULTON, Efren Unavailable Humberto Jackson MD Primary Care Provider Humberto Jackson MD Primary Care Provider Prince Villanueva Attending Unavailable Prince Villanueva Admitting Unavailable Humberto Jackson Primary Care Unavailable Braeden Reid Attending Unavailable Humberto Jackson Primary Care Unavailable Humberto Jackson Referring Unavailable Prince Villanueva Attending Unavailable Humberto Jackson Primary Care Unavailable Humberto Jackson Primary Care Unavailable Maranda Hansen Attending Unavailable Prince Villanueva Consulting Unavailable Prince Villanueva Attending Unavailable Humberto Jackson Primary Care Unavailable Prince Villanueva Admitting Unavailable Prince Villanueva Consulting Unavailable Prince Villanueva Attending Unavailable Manuel, Humberto Primary Care Unavailable Manuel, Humberto Primary Care Unavailable Maranda Hansen Attending Unavailable Manuel, Humberto Referring Unavailable Manuel, Humberto Primary Care Unavailable Maranda Hansen Attending Unavailable STANTON PETERS Referring Unavailable MANUEL, HUMBERTO VLADIMIR Primary Care Unavailspike olivia Knguy TAX ACCOUNTANT.CIRCUIT COURT CLERK, Dominik Unavailable Kenyatta Castaneda PA-C Unavailable TORRES MONACO Referring Unavailable MANUEL, HUMBERTO A Primary Care Unavailable MANUEL, HUMBERTO A Referring Unavailable MANUEL, HUMBERTO A Primary Care Unavailable MANUEL, HUMBERTO A Primary Care Unavailable JA MCKEON Referring Unavailable Humberto Jackson MD Primary Care Provider [phone]CIRCUIT COURT CLERK, Dominik Unavailable LISSY BOWMAN Attending Unavailable MANUEL, HUMBERTO A Referring Unavailable MANUEL, HUMBERTO A Primary Care Unavailable JA MCKEON Attending Unavailable MANUEL, HUMBERTO A Primary Care Unavailable KENYATTA CASTANEDA Referring Unavailable MANUEL, HUMBERTO A Primary Care Unavailable Humberto Jackson MD Primary Care Provider Alfie TAX ACCOUNTANT.CIRCUIT COURT CLERK, Dominik Unavailable Kenyatta Castaneda PA-C Unavailable MANUEL, HUMBERTO A Attending Unavailable MANUEL, HUMBERTO A Primary Care Unavailable MANUEL, HUMBERTO A Referring Unavailable MANUEL, HUMBERTO A Primary Care Unavailable MANUEL, HUMBERTO A Referring Unavailable MANUEL, HUMBERTO A Primary Care Unavailable MANUEL, HUMBERTO A Referring Unavailable MANUEL, HUMBERTO A Primary Care Unavailable MANUEL, HUMBERTO A Attending Unavailable MANUEL, HUMBERTO A Primary Care Unavailable MANUEL, HUMBERTO A Referring Unavailable MANUEL, HUMBERTO A Primary Care Unavailable MANUEL, HUMBERTO A Primary Care Unavailable MANUEL, HUMBERTO A Attending Unavailable MANUEL, HUMBERTO A Primary Care Unavailable MANUEL, HUMBERTO A Attending Unavailable MANUEL, HUMBERTO A Primary Care Unavailable DOMINIK KELLEY Referring Unavailable MANUEL, HUMBERTO A Primary Care Unavailable MANUEL, HUMBERTO A Attending Unavailable ELIZABETH SUÁREZ Referring Unavailab le MANUEL, HUMBERTO A Primary Care Unavailable VIKASH BOOTH Attending Unavailab le MANUEL, HUMBERTO A Primary Care Unavailable KENYATTA CASTANEDA Attending Unavailable NELDA QUIGLEY Attending Unavailable MANUEL, HUMBERTO A Primary Care Unavailable KENYATTA CASTANEDA Referring Unavailable MANUEL, HUMBERTO A Primary Care Unavailable KENYATTA CASTANEDA Referring Unavailable GOLIAS, STORM Attending Unavailable MANUEL, HUMBERTO A Primary Care Unavailable KNOBLE, DOMINIK Referring Unavailable GOLIAS, STORM Attending Unavailable MANUEL, HUMBERTO A Primary Care Unavailable KNOBLE, DOMINIK Referring Unavailable MANUEL, HUMBERTO A Primary Care Unavailable MANUEL, HUMBERTO A Attending Unavailable MANUEL, HUMBERTO A Referring Unavailable JANA BABCOCK Attending Unavailable MANUEL, HUMBERTO A Primary Care Unavailable MANUEL, HUMBERTO A Attending Unavailable MANUEL, HUMBERTO A Primary Care Unavailable GOLIAS, STORM Attending Unavailable MANUEL, HUMBERTO A Primary Care Unavailable KNOBLE, DOMINIK Referring Unavailable MANUEL, HUMBERTO A Primary Care Unavailable KNOBLE, DOMINIK Referring Unavailable GOLIAS, STORM Attending Unavailable MANUEL, HUMBERTO A Primary Care Unavailable KNOBLE, DOMINIK Referring Unavailable MANUEL, HUMBERTO A Primary Care Unavailable KNOBLE, DOMINIK Referring Unavailable MANUEL, HUMBERTO A Primary Care Unavailable KNOBLE, DOMINIK Attending Unavailable MANUEL, HUMBERTO A Primary Care Unavailable KNOBLE, DOMINIK Referring Unavailable MANUEL, HUMBERTO A Primary Care Unavailable KNOBLE, DOMINIK Attending Unavailable MANUEL, HUMBERTO A Primary Care Unavailable KNOBLE, DOMINIK Referring Unavailable MANUEL, HUMBERTO A Primary Care Unavailable MANUEL, HUMBERTO A Referring Unavailable MANUEL, HUMBERTO A Referring Unavailable MANUEL, HUMBERTO A Primary Care Unavailable Allergies Allergy Classification Reported Allergen(s) Allergy Type Date of Onset Reaction(s) Facility (20 sources) Citalopram; Translations: [CITALOPRAM HYDROBROMIDE] Drug Allergy 10-22-19 15 Other: See Comments [facility] Work Phone: (20 sources) Metoclopramide; Translations: [METOCLOPRAMIDE HCL] Drug Allergy 01-25-[address] [facility] Work Phone: (20 sources) Sertraline; Translations: [SERTRALINE HCL] Drug Allergy 10-22-19 15 Other: See Comments [facility] Work Phone: (20 sources) topiramate; Translations: [TOPIRAMATE] Drug Allergy 02-05-20 14 Mental Status Change [facility] Work Phone: (20 sources) venlafaxine; Translations: [VENLAFAXINE ANALOGUES] Drug Allergy 10-22-19 15 Other: See Comments [facility] Work Phone: (2 sources) Citalopram Drug Allergy 03-06-20 19 Unknown [facility] (2 sources) Metoclopramide Drug Allergy 03-06-20 19 weirds me out [facility] (2 sources) Sertraline Drug Allergy 03-06-20 19 sexual side effects [facility] (1 source) Citalopram Drug Allergy 03-13-20 24 [facility] (1 source) Metoclopramide Drug Allergy 03-13-20 24 [facility] (1 source) Sertraline Drug Allergy 03-13-20 24 [facility] (1 source) topiramate Drug Allergy 03-13-20 24 [facility] (1 source) venlafaxine Drug Allergy 03-13-20 24 [facility] (1 source) ALLERGIES NOT ON FILE; Translations: [ALLERGIES NOT ON FILE] Propensity to adverse reactions (disorder) [facility] Medications Current Medications Medication Drug Class(es) Dates Sig (Normalized) Sig (Original) [id number] 200 actuat albuterol 0.09 mg/actuat metered dose inhaler (20 sources) beta2-Adrenergic Agonist Start: 12-30-2024 take 2 puff(s) by inhalation three times daily albuterol HFA (PROVENTIL HFA, VENTOLIN HFA) 90 mcg/actuation inhaler Inhale 2 Puffs as instructed three times a day. 1 Each 12/30/2024 Active Start: 10-15-2021 End: 07-07-2023 take 2 puff(s) by inhalation every four hours as needed for wheezing albuterol HFA (PROAIR HFA) 90 mcg/actuation inhaler Inhale 2 Puffs as instructed every 4 hours as needed for wheezing/shortness of breath. 1 Inhaler 1 10/15/2021 07/07/2023 Discontinued Start: 02-03-2020 End: 01-28-2021 take 2 puff(s) by inhalation every four hours as needed for wheezing albuterol HFA (VENTOLIN HFA) 90 mcg/actuation inhaler Inhale 2 Puffs as instructed every 4 hours as needed for Wheezing/Shortness of Breath. 1 Inhaler 02/03/2020 01/28/2021 Discontinued (Course of therapy completed) Comment on above: Inhale 2 Puffs as in structed every 4 hours as needed for wheezing/shortness of breath. amoxicillin 875 mg / clavulanate 125 mg oral tablet (7 sources) Penicillin-class Antibacterial Start: 12-31-19 End: 01-10-20 take 1 tablet by mouth every twelve hours amoxicillin-clavu lanate potassium (AUGMENTIN) 875-125 mg per tablet Take 1 tablet by mouth every 12 hours for 10 days. 20 tablet 12/30/2024 01/09/2025 Active Start: 04-15-2023 take 1 tablet by good th every eight hours Amoxicillin-Pot Clavulanate Active 1 TABLET PO EVERY 8 HOURS 28 04April 15, 2023 12:00am Start: 10-14-2017 End: 01-24-2018 take 875 mg by mouth every twelve hours Amoxicillin-Pot Clavulanate Discontinued 875 MG PO Q12H October 14, 2017 1:00am January 24, 2018 8:55am atorvastatin 80 mg oral tablet (20 sources) HMG-CoA Reductase Inhibitor Start: 06-06-2024 End: 09-17-2024 take 1 tablet by mouth once daily atorvastatin (LIPITOR) 80 mg tablet Indications: Dyslipidemia Take 1 tablet by mouth once daily. 90 tablet 1 09/17/2024 Active Start: 12-07-2023 End: 06-06-2024 take 1 tablet by mouth once daily atorvastatin (LIPITOR) 40 mg tablet Take 1 tablet by mouth once daily. 90 tablet 1 12/07/2023 06/06/2024 Discontinued Start: 03-22-2018 End: 12-07-2023 take 1 tablet by mouth once daily atorvastatin (LIPITOR) 20 mg tablet Take 1 tablet by mouth once daily. 90 tablet 1 09/08/2020 08/20/2021 Discontinued Comment on above: Take 1 tablet by good th once daily. Blood-Glucose Sensor (FREESTYLE EVERT 3 SENSOR) agnes (20 sources) Start: 11-05-2024 Blood-Glucose Sensor (FREESTYLE EVERT 3 SENSOR) agnes Indications: Type 2 diabetes mellitus without complication, without long-term current use of insulin (HCC) USE ONE SENSOR EVERY 14 DAY, IDDM, E11.9 2 Each 2 11/05/2024 Active Start: 10-18-2023 End: 11-05-2024 Blood-Glucose Sensor (FREEST YLE EVERT 3 SENSOR) agnes Indications: Type 2 diabetes mellitus without complication, without long-term current use of insulin (HCC) Use one sensor every 14 day, IDDM, E11.9 2 Each 10/18/2023 11/05/2024 Discontinued Start: 10-18-2023 Blood-Glucose Sensor (FREESTYLE EVERT 3 SENSOR) agnes Indications: Type 2 diabetes mellitus without complication, without long-term current use of insulin (HCC) Use one sensor every 14 day, IDDM, E11.9 2 Each 10/18/2023 Active Start: 10-21-2022 End: 10-18-2023 Blood-Glucose Sensor (FREEST YLE EVERT 3 SENSOR) agnes Indications: Type 2 diabetes mellitus without complication, without long-term current use of insulin (HCC) Use one sensor every 14 day, IDDM, E11.9 2 Each 10/21/2022 10/18/2023 Discontinued Start: 10-21-2022 Blood-Glucose Sensor (FREESTYLE EVERT 3 SENSOR) agnes Indications: Type 2 diabetes mellitus without complication, without long-term current use of insulin (HCC) Use one sensor every 14 day, IDDM, E11.9 2 Each 10/21/2022 Active Comment on above: Use one sensor every 14 day, IDDM, E11.9 busPIRone hydrochloride 15 mg oral tablet (20 sources) Start: 04-14-2023 Buspirone Active MG April 14, 2023 12:00am Start: 08-20-2021 End: 03-06-2025 take 1 tablet by mouth twice daily busPIRone (BUSPAR) 15 mg tablet Take one tab by mouth twice a day. 180 tablet 1 03/06/2025 Active Start: 07-30-2020 End: 12-22-2020 take 1 tablet by mouth twice daily busPIRone (BUSPAR) 15 mg tablet Take one tab by mouth twice a day. 60 tablet 5 07/30/2020 12/22/2020 Discontinued Comment on above: Take one tab by mout h twice a day. 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 30 capsule 02/06/2025 Active doxepin hydrochloride 10 mg oral capsule (20 sources) Tricyclic Antidepressant Start: 2018 End: 2023 take 1 capsule by mouth once daily at bedtime doxepin capsule 10 mg Take 1 capsule by mouth daily at bedtime. 90 capsule 1 09/17/2024 Active Comment on above: Take 1 capsule by mo [facility] daily at bedtime. DULoxetine 60 mg delayed release oral capsule (20 sources) Serotonin and Norepinephrine Reuptake Inhibitor Start: 2023 End: 2024 take 1 capsule by mouth once daily DULoxetine (CYMBALTA) 30 mg capsule Take 1 capsule by mouth once daily. 90 capsule 1 11/22/2024 Active Start: 04-14-2023 Duloxetine Act christiano MG PO April 14, 2023 12:00am Start: 08-20-2021 End: 12-30-2024 take 1 capsule by mouth once daily DULoxetine (CYMBALTA) 60 mg capsule Take 1 capsule by mouth once daily. 90 capsule 1 12/30/2024 Active Start: 06-22-2020 End: 12-22-2020 take 1 capsule by mouth once daily DULoxetine (CYMBALTA) 60 mg capsule Take 1 capsule by mouth once daily. 90 capsule 1 06/22/2020 12/22/2020 Discontinued Comment on above: Take 1 capsule by mo ut once daily. esomeprazole 40 mg delayed release oral capsule (20 sources) Proton Pump Inhibitor Start: take 1 capsule by mouth twice daily esomeprazole (NEXIUM) 40 mg capsule Take 1 capsule by mouth two times a day. 180 capsule 1 10/14/2024 Active Start: 10-10-2017 End: 08-19-2024 take 1 capsule by mouth once daily esomeprazole (NEXIUM) 40 mg capsule Take 1 capsule by mouth once daily. 90 capsule 1 08/19/2024 Active Comment on above: Take 40 mg by mouth once daily. Take 1 capsule by mo [facility] once daily. fenofibrate 120 mg oral tablet (20 sources) Peroxisome Proliferator Receptor alpha Agonist Start: take 1 tablet by mouth once daily Fenofibrate 120 mg tab Take 1 tablet by mouth once daily. 90 tablet 1 10/16/2024 Active Start: 09-08-2020 End: 10-16-2024 take 1 tablet by mouth once daily Fenofibrate (LOFIBRA) 54 mg tablet Take 1 tablet by mouth once daily. 90 tablet 1 08/19/2024 10/16/2024 Discontinued Start: 10-10-2017 take 54 mg by mouth once daily Fenofibrate Active 54 MG PO DAILY October 10, 2017 1:00am Comment on above: Take 1 tablet by [facility] once daily. ferrous sulfate 325 mg oral tablet (2 sources) Start: 03-10-2025 take 1 tablet by mouth twice daily at mealtime ferrous sulfate 325 mg (65 mg iron) tablet Take 1 tablet by mouth two times a day with meals. 60 tablet 03/10/2025 Active Fish Oils (2 sources) Start: 10-20-2018 take 1 capsule by mouth twice daily Fish Oil 1,000 mg Capsule Active 1000 MG PO TWICE A DAY October 20, 2018 1:00am FLUoxetine 40 mg oral capsule (4 sources) Serotonin Reuptake Inhibitor Start: 03-22-2018 take 60 mg by mouth once daily Fluoxetine Active 60 MG PO daily March 22, 2018 12:00am Start: 10-10-2017 End: 03-22-2018 take 10 mg by mouth once daily Fluoxetine Discontinued 10 MG PO DAILY October 10, 2017 1:00am March 22, 2018 8:18am fluticasone propionate 0.05 mg/actuat metered dose nasal spray (20 sources) Corticosteroid Start: 04-14-2023 take 1 spray(s) nasal route once daily Fluticasone Propionate Active 1 SPRAY INTRANASAL DAILY April 14, 2023 12:00am administer into each nostril Start: 09-03-2014 End: 07-07-2023 take 1 spray(s) by mouth once daily fluticasone (FLONASE) 50 mcg/actuation nasal spray Indications: Allergic rhinitis , Eustachian tube dysfunction Use 1 [place] in each nostril once daily. Rinse mouth after use. 1 Bottle 11 09/03/2014 07/07/2023 Discontinued Comment on above: Use 1 [place] in each nostril once daily. Rinse mouth after use. 3 ml insulin glargine 100 unt/ml pen injector (14 sources) Insulin Analog Start: 03-04-2022 End: 06-07-2022 insulin glargine (LANTUS SOLOSTAR U-100 INSULIN) 100 unit/mL (3 mL) Indications: Type 2 diabetes mellitus without complication, without long-term current use of insulin (HCC) INJECT SUBCUTANEOUSLY 40 UNITS DAILY AT BEDTIME 15 mL 11 03/04/2022 06/07/2022 Discontinued Start: 02-01-2022 End: 03-04-2022 insulin glargine (LANTUS SPRING OSTAR U-100 INSULIN) 100 unit/mL (3 mL) INJECT SUBCUTANEOUSLY 26 UNITS DAILY AT BEDTIME. TITRATE UP 2 UNITS EVERY 2 DAYS UNTIL FASTING GLUCOSE IS 120 UP TO 40 UNITS DAILY 15 mL 1 02/01/2022 03/04/2022 Discontinued Start: 03-25-2021 End: 02-01-2022 insulin glargine (LANTUS SPRING OSTAR, BASAGLAR KWIKPEN) 100 unit/mL (3 mL) Inject subcutaneously 38 units daily at bedtime. Titrate up 2 units every 2 days until fasting glucose is 120; up to 50 units daily 45 mL 3 03/25/2021 02/01/2022 Discontinued Comment on above: Inject subcutaneously 38 units daily at bedtime. Titrate up 2 units every 2 days until fasting glucose is 120; up to 50 units daily INJECT SUBCUTANEOUSL Y 26 UNITS DAILY AT BEDTIME. TITRATE UP 2 UNITS EVERY 2 DAYS UNTIL FASTING GLUCOSE IS 120 UP TO 40 UNITS DAILY INJECT SUBCUTANEOUSL Y 40 UNITS DAILY AT BEDTIME 3 ml insulin lispro 100 unt/ml pen injector (20 sources) Insulin Analog Start: inject 1 mL by subcutaneous injection at breakfast HUMALOG KWIKPEN INSULIN 100 unit/mL Indications: Type 2 diabetes mellitus without complication, without long-term current use of insulin (HCC) Inject subcutaneously 20 units breakfast, 20 units lunch, 20 units dinner plus sliding scale up to 82 units daily. Dispense 75 mL for a 90 day supply. 75 mL 3 01/17/2024 Active Start: 01-17-2024 End: 01-17-2024 inject 20 [IU] by subcutaneous injection at breakfast, then inject 20 [IU] by subcutaneous injection at lunch, then inject 20 [IU] by subcutaneous injection at dinner, then inject 82 [IU] by subcutaneous injection once daily HUMALOG KWIKPEN INSULIN 100 unit/mL Indications: Type 2 diabetes mellitus without complication, without long-term current use of insulin (HCC) Inject subcutaneously 20 units breakfast, 20 units lunch, 20 units dinner plus sliding scale up to 82 units daily 30 mL 11 01/17/2024 01/17/2024 Discontinued Start: 10-19-2023 End: 01-17-2024 inject 16 [IU] by subcutaneous injection at breakfast, then inject 16 [IU] by subcutaneous injection at lunch, then inject 16 [IU] by subcutaneous injection at dinner, then inject 75 [IU] by subcutaneous injection once daily HUMALOG KWIKPEN INSULIN 100 unit/mL Inject subcutaneously 16 units breakfast, 16 units lunch, 16 units dinner plus sliding scale up to 75 units daily 30 mL 11 10/19/2023 01/17/2024 Discontinued Start: 03-04-2021 End: 03-04-2022 insulin lispro (HUMALOG KWIK PEN INSULIN) 100 unit/mL Inject subcutaneously breakfast per sliding scale, lunch per sliding scale; dinner 3 units plus sliding scale; up to 35 units daily 45 mL 3 03/04/2021 03/04/2022 Discontinued Comment on above: Inject subcutaneousl y breakfast per sliding scale, lunch per sliding scale; dinner 3 units plus sliding scale; up to 35 units daily Inject subcutaneousl y 16 units breakfast, 16 units lunch, 16 units dinner plus sliding scale up to 75 units daily Inject subcutaneousl y 20 units breakfast, 20 units lunch, 20 units dinner plus sliding scale up to 82 units daily Inject subcutaneousl y 20 units breakfast, 20 units lunch, 20 units dinner plus sliding scale up to 82 units daily. Dispense 75 mL for a 90 day supply. iv contrast (will be provided with radiology test) (2 sources) Start: 01-06-2025 End: 01-07-2025 iv contrast (will be provided with radiology test) MRI Pituitary Inject, intravenously, once for 1 dose. No IV access, insert saline lock prior to the beginning of sedation, infusion, injection of imaging exam. Discontinue saline lock post exam. If Pt. has a central line or IVAD, may access for administration according to line specific nursing protocol. Once exam is complete flush line and de-access according to line specific nursing protocol in the MR contrast administration guidelines link. 1 Each 01/06/2025 01/07/2025 Active Start: 11-26-2024 End: 11-27-2024 inject 1 dose intravenously once iv contrast (will be provided with radiology test) MRI Brain Inject, intravenously, once for 1 dose.No IV access, insert saline lock prior to beginning of sedation, infusion, injection of imaging exam.Discontinue saline lock post exam. If Pt. has a central line or IVAD, may access for administration according to line specific nursing protocol.Once exam is complete flush line and de-access according to line specific nursing protocol in the MR contrast administration guidelines link 1 Each 11/26/2024 11/27/2024 Active metFORMIN hydrochloride 500 mg oral tablet (20 sources) Biguanide Start: 09-08-2020 End: 02-18-2025 take 2 tablets by mouth twice daily at mealtime metFORMIN (GLUCOPHAGE) 500 mg tablet Indications: Type 2 diabetes mellitus without complication, without long-term current use of insulin (HCC) TAKE 2 TABLETS BY MOUTH TWO TIMES A DAY WITH MEALS. 360 tablet 02/18/2025 Active Start: 03-22-2018 take 1000 mg by mout h twice daily Metformin Active 1000 MG PO TWICE A DAY March 22, 2018 8:17am Start: 10-10-2017 End: 03-22-2018 take 500 mg by mouth once daily Metformin Discontinued 500 MG PO DAILY October 10, 2017 1:00am March 22, 2018 8:19am Comment on above: Take 2 tablets by mo ut twice daily with meals. Take 2 tablets by mo uth two times a day with meals. 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 30 capsule 12/09/2024 02/06/2025 Discontinued Start: 08-19-2024 End: 02-20-2025 take 1 capsule by mouth once daily methylphenidate CD (METADATE CD) 20 mg biphasic capsule Indications: Attention 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 Take 1 capsule by mouth once daily for 30 days. 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 30 capsule 08/19/2024 08/19/2024 Discontinued (Changing Therapy/Dosage Form) Start: 06-17-2024 End: 07-17-2024 take 1 capsule by mouth once daily methylphenidate CD (METADATE CD) 10 mg biphasic capsule Indications: Attention 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 Take 1 capsule by mouth once daily for 30 days. 30 capsule 06/17/2024 Active Start: 12-16-2023 End: 06-12-2024 take 1 capsule by mouth once daily methylphenidate CD (METADATE CD) 10 mg biphasic capsule Indications: Attention 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 Take 1 capsule by mouth once daily for 30 days. 30 capsule 05/13/2024 Active Start: 12-07-2023 End: 01-06-2024 take 1 capsule by mouth once daily methylphenidate LA (RITALIN LA) 10 mg biphasic capsule Indications: Attention 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 Take 1 capsule by mouth once daily for 30 days. 30 capsule 0 12/07/2023 12/16/2023 Discontinued Start: 08-24-2023 End: 10-18-2023 take 1 capsule by mouth once daily methylphenidate LA (RITALIN LA) 10 mg biphasic capsule Indications: Attention 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 Take 1 capsule by mouth once daily for 30 days. 30 capsule 0 08/24/2023 10/18/2023 Discontinued Start: 06-05-2023 End: 07-05-2023 take 1 capsule by mouth once daily methylphenidate LA (RITALIN LA) 10 mg biphasic capsule Indications: Attention 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 Take 1 capsule by mouth once daily for 30 days. 30 capsule 0 06/05/2023 07/05/2023 Active Start: 04-14-2023 Methylphenidat e Hcl Active MG PO April 14, 2023 12:00am Start: 12-07-2022 End: 04-26-2023 take 1 capsule by mouth once daily methylphenidate LA (RITALIN LA) 10 mg biphasic capsule Indications: Attention 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 Take 1 capsule by mouth once daily for 30 days. 30 capsule 0 03/27/2023 04/26/2023 Active Comment on above: Take 1 capsule by mo [facility] once daily for 30 days. Multivitamin preparation (2 sources) Start: 10-10-19 18 Multivitamin Active 1 EACH PO DAILY October 10, 2017 1:00am multivitamin tablet (20 sources) Start: 12-17-19 15 take 1 tablet by mouth once daily multivitamin tablet Take 1 tablet by mouth once daily. 0 12/16/2014 Active Comment on above: [facility] OLANZapine 5 mg oral tablet (20 sources) Atypical Antipsychotic Start: 08-20-20 21 End: 12-21-19 25 take 1 tablet by mouth once daily at bedtime OLANZapine (ZYPREXA) 5 mg tablet Take 1 tablet by mouth daily at bedtime. 90 tablet 1 12/20/2024 Active Start: 10-20-2018 End: 12-22-2020 take 1 tablet by mouth once daily at bedtime OLANZapine (ZYPREXA) 2.5 mg tablet Take 1 tablet by mouth daily at bedtime. 90 tablet 1 09/08/2020 12/22/2020 Discontinued Comment on above: Take 1 tablet by good daily at bedtime. oxyCODONE hydrochloride 5 mg oral tablet (1 source) Opioid Agonist Start: 04-15-2023 take 5 mg by mouth every six hours as needed Oxycodone Active 5 MG PO EVERY 6 HOURS NEEDED 07 11April 15, 2023 Start: 04-15-2023 take 5 mg by mouth e very six hours as needed Oxycodone Active 5 MG PO EVERY 6 HOURS NEEDED 07 11April 15, 2023 polyethylene glycol 3350 [id number] mg / potassium chloride 2970 mg / sodium bicarbonate 6740 mg / sodium chloride 5860 mg / sodium sulfate 64073 mg powder for oral solution (3 sources) Osmotic Laxative Start: 03-10-2025 End: 03-10-2025 peg 3350-Electrolytes (GOLYTELY) 236-22.74-6.74 -5.86 gram suspension Indications: Anemia, unspecified type Take 4,000 mL by mouth one time only for 1 dose. Refer to printed prep instructions from your provider. 4000 mL 03/10/2025 03/10/2025 Active sucralfate 1000 mg oral tablet (20 sources) Aluminum Complex Start: 10-23-2024 sucralfate (CARAFATE) 1 gram tablet Take one tab with lunch and before bed. 60 tablet 5 10/23/2024 Active sulfamethoxazole 800 mg / trimethoprim 160 mg oral tablet (4 sources) Dihydrofolate Reductase Inhibitor Antibacterial, Sulfonamide Antimicrobial Start: 08-04-2022 End: 08-14-2022 take 1 tablet by mouth twice daily sulfamethoxazole-trim ethoprim (BACTRIM DS) 800-160 mg per tablet Indications: Cellulitis of skin Take 1 tablet by mouth twice daily for 10 days. 20 tablet 0 08/04/2022 08/14/2022 Active Comment on above: Take 1 tablet by good twice daily for 10 days. zonisamide 25 mg oral capsule (20 sources) Anti-epileptic Agent Start: 10-20-2018 End: 12-07-2022 take 1 capsule by mouth once daily zonisamide (ZONEGRAN) 25 mg capsule Take 1 capsule by mouth once daily. 90 capsule 1 12/07/2022 Active Comment on above: Take 1 capsule by mo [facility] once daily. Completed/Discontinued Medications Medication Drug Class(es) Dates Sig (Normalized) Sig (Original) aspirin 81 mg delayed release oral tablet (20 sources) Platelet Aggregation Inhibitor, Nonsteroidal Anti-inflammatory Drug Start: 05-16-2018 End: 01-27-2023 take 1 tablet by mouth once daily aspirin, enteric coated (ASPIRIN, ENTERIC COATED) 81 mg EC tablet Take 1 tablet by mouth once daily. 05/16/2018 01/27/2023 Discontinued Comment on above: Take 1 tablet by good once daily. azithromycin 500 mg oral tablet (2 sources) Macrolide Antimicrobial Start: 10-14-2017 End: 01-24-2018 take 500 mg by mouth once daily Azithromycin Discontinued 500 MG PO DAILY October 14, 2017 1:00am January 24, 2018 8:55am cefadroxil 500 mg oral capsule (1 source) Cephalosporin Antibacterial Start: 10-15-2021 End: 10-25-2021 take 1 capsule by mouth twice daily cefADROxil (DURICEF) 500 mg capsule Take 1 capsule by mouth twice daily for 10 days. 20 capsule 10/15/2021 10/25/2021 CPAP (20 sources) Start: 09-28-2017 End: 08-19-2024 CPAP AUTO PAP 5-20 cmH20, CHIN STRAP, heated HUMIDITY, mask of patient's choice. LIFETIME SUPPLIES. SD Card. Download to [employer]. [employer] Device 09/28/2017 08/19/2024 Discontinued Start: 09-28-2017 CPAP AUTO PAP 5-20 cmH20, CHIN STRAP, heated HUMIDITY, mask of patient's choice. LIFETIME SUPPLIES. SD Card. Download to [employer]. [employer] Device 09/28/2017 Active Comment on above: AUTO PAP 5-20 cmH20, CHIN STRAP, heated HUMIDITY, mask of patient's choice. LIFETIME SUPPLIES. SD Card. Download to [employer]. empagliflozin 25 mg oral tablet (17 sources) Sodium-Glucose Cotransporter 2 Inhibitor Start: End: take 1 tablet by mouth once daily JARDIANCE 25 mg tablet Take 1 tablet by mouth once daily. 90 tablet 1 09/08/2020 04/06/2021 Discontinued Comment on above: Take 1 tablet by good th once daily. glimepiride 4 mg oral tablet (15 sources) Sulfonylurea Start: End: take 1 tablet by mouth once daily at breakfast glimepiride (AMARYL) 4 mg tablet Take 1 tablet by mouth daily with breakfast. 30 tablet 5 12/22/2020 01/05/2022 Discontinued Comment on above: Take 1 tablet by good th daily with breakfast. 3 ml insulin degludec 100 unt/ml pen injector (20 sources) Insulin Analog Start: 024 End: inject 60 [IU] by subcutaneous injection once daily at bedtime TRESIBA FLEXTOUCH U-100 100 unit/mL (3 mL) injection pen Indications: Type 2 diabetes mellitus without complication, without long-term current use of insulin (HCC) Inject 60 units subcutaneous daily at bedtime. Dispense 60 mL for 90 day supply. 60 mL 3 01/17/2024 03/10/2025 Discontinued Start: 01-17-2024 End: 01-17-2024 insulin degludec (TRESIBA U- 100 INSULIN) 100 unit/mL injection Indications: Type 2 diabetes mellitus without complication, without long-term current use of insulin (HCC) Inject 60 Units subcutaneously daily at bedtime. 30 mL 11 01/17/2024 01/17/2024 Discontinued Start: 10-18-2023 End: 01-17-2024 insulin degludec (TRESIBA U- 100 INSULIN) 100 unit/mL injection Indications: Type 2 diabetes mellitus without complication, without long-term current use of insulin (HCC) Inject 50 Units subcutaneously daily at bedtime. 15 Each 10/18/2023 01/17/2024 Discontinued Comment on above: Inject 50 Units subcutaneously daily at bedtime. Inject 60 Units subc utaneously daily at bedtime. Inject 60 units subc utaneous daily at bedtime. Dispense 60 mL for 90 day supply. 3 ml insulin lispro 25 unt/ml / insulin lispro protamine, human 75 unt/ml pen injector (20 sources) Insulin Analog Start: 023 End: inject 45 [IU] by subcutaneous injection at breakfast insulin 75/25 lispro protamine-lispro units/mL (HUMALOG MIX 75/25 KWIKPEN) 100 unit/mL (75-25) pen Indications: Type 2 diabetes mellitus without complication, without long-term current use of insulin (HCC) Inject subcutaneously 45 units breakfast and 45 units dinner 30 mL 11 07/07/2023 10/18/2023 Discontinued Start: 04-14-2023 Insulin Lispro Protamin-Lispro Active SC April 14, 2023 12:00am Start: 01-27-2023 inject 35 [IU] by wilson bcutaneous injection at breakfast insulin lispro protamine-insulin lispro (HumaLOG 75/25) pen Indications: Type 2 diabetes mellitus without complication, without long-term current use of insulin (HCC) Inject subcutaneously 35 units breakfast and 35 units dinner 30 mL 5 01/27/2023 Active Start: 06-07-2022 End: 01-27-2023 inject 25 [IU] by subcutaneous injection at breakfast insulin lispro protamine-insulin lispro (HumaLOG 75/25) pen Indications: Type 2 diabetes mellitus without complication, without long-term current use of insulin (HCC) Inject subcutaneously 25 units breakfast and 25 units dinner 15 mL 5 10/21/2022 01/27/2023 Discontinued Comment on above: Inject subcutaneousl y 25 units breakfast and 25 units dinner Inject subcutaneousl y 35 units breakfast and 35 units dinner Inject subcutaneousl y 45 units breakfast and 45 units dinner magnesium oxide 250 mg oral tablet (20 sources) Start: 2018 End: 2022 take 1 tablet by mouth twice daily Magnesium Oxide 250 mg magnesium tab Take 1 tablet by mouth twice daily. 180 tablet 3 05/24/2019 07/07/2023 Discontinued Comment on above: Take 1 tablet by good th twice daily. methylPREDNISolone (1 source) Corticosteroid Start: 2021 End: 2021 methylPREDNISolone (MEDROL, REVA,) 4 mg Dose-Pack Follow dosing instructions, take with food. 1 Package 10/15/2021 10/21/2021 multivitamin (DAILY MULTI-VITAMIN) tablet (8 sources) Start: 2014 take 1 tablet by mouth once daily multivitamin (DAILY MULTI-VITAMIN) tablet Take 1 tablet by mouth once daily. 0 12/16/2014 Active Comment on above: Take 1 tablet by good th once daily. omega-3 fatty acids 1,000 mg cap (20 sources) Start: 2019 End: 2022 take 1 capsule by mouth twice daily omega-3 fatty acids 1,000 mg cap Take 1 capsule by mouth twice daily. 180 capsule 3 02/03/2020 07/07/2023 Discontinued Start: 02-03-2020 take 1 capsule by mo ut twice daily omega-3 fatty acids 1,000 mg cap Take 1 capsule by mouth twice daily. 180 capsule 3 02/03/2020 Active Comment on above: Take 1 capsule by mo uth twice daily. riboflavin 100 mg oral tablet (20 sources) Start: 0 End: 3 take 2 tablets by mouth twice daily riboflavin, vitamin B2, (VITAMIN B-2) 100 mg tab Take 2 tablets by mouth twice daily. 360 tablet 1 09/08/2020 07/07/2023 Discontinued Comment on above: Take 2 tablets by mo uth twice daily. semaglutide 3 mg oral tablet (18 sources) Start: 3 End: 3 take 1 tablet by mouth once daily before breakfast semaglutide (RYBELSUS) 3 mg tablet Indications: Type 2 diabetes mellitus without complication, without long-term current use of insulin ([facility]) Take 1 tablet by mouth daily before breakfast. X 30 days 30 tablet 0 10/21/2022 01/27/2023 Discontinued Start: 10-21-2022 End: 01-27-2023 take 1 tablet by mouth once daily before breakfast semaglutide (RYBELSUS) 7 mg tablet Indications: Type 2 diabetes mellitus without complication, without long-term current use of insulin ([facility]) Take 1 tablet (7 mg) by mouth daily before breakfast. (Start after having taken 3mg daily x 30 days) 30 tablet 5 10/21/2022 01/27/2023 Discontinued Start: 03-04-2022 End: 06-07-2022 semaglutide (OZEMPIC) 0.25 m g or 0.5 mg(2 mg/1.5 mL) pen injector Indications: Type 2 diabetes mellitus without complication, without long-term current use of insulin ([facility]) Inject 0.25 mg weekly x 4 wks then increase to 0.5 mg weekly 1.5 mL 5 03/04/2022 06/07/2022 Discontinued Comment on above: Inject 0.25 mg weekl y x 4 wks then increase to 0.5 mg weekly Take 1 tablet by good th daily before breakfast. X 30 days Take 1 tablet (7 mg) by mouth daily before breakfast. (Start after having taken 3mg daily x 30 days) semaglutide (OZEMPIC) 0.25 mg or 0.5 mg (2 mg/3 mL) pen (2 sources) Start: 023 inject 0.25 mg by subcutaneous injection every week, then inject 0.5 mg by subcutaneous injection every week semaglutide (OZEMPIC) 0.25 mg or 0.5 mg (2 mg/3 mL) pen Inject subcutaneously 0.25 mg weekly x 4 wks then increase to 0.5 mg weekly 3 mL 5 07/17/2023 Active Comment on above: Inject subcutaneousl y 0.25 mg weekly x 4 wks then increase to 0.5 mg weekly tirzepatide (MOUNJARO) 2.5 mg/0.5 mL pen injector (2 sources) Start: 023 End: inject 2.5 mg by subcutaneous injection every week tirzepatide (MOUNJARO) 2.5 mg/0.5 mL pen injector Inject 2.5 mg subcutaneously one time a week. 2 mL 0 09/05/2023 10/18/2023 Discontinued Start: 09-05-2023 inject 2.5 mg by sub cutaneous injection every week tirzepatide (MOUNJARO) 2.5 mg/0.5 mL pen injector Inject 2.5 mg subcutaneously one time a week. 2 mL 0 09/05/2023 Active Comment on above: Inject 2.5 mg subcut aneously one time a week. Problems Active Problems Problem Classification Problem Date Documented Da te Episodic/Chronic Anal and rectal conditions (6 sources) Perirectal abscess; Translations: [Rectal abscess] Onset: 3 04-14-2023 Episodic Anxiety disorders (20 sources) Other specified anxiety disorders; Translations: [Generalized anxiety disorder] Onset: 7 07-28-2020 Chronic Asthma (20 sources) Allergic asthma; Translations: [Unspecified asthma, uncomplicated] Onset: 5 05-12-2015 Chronic Cardiac dysrhythmias (4 sources) Tachycardia; Translations: [Tachycardia, unspecified] Onset: 5 03-06-2025 Episodic Conditions associated with dizziness or vertigo (4 sources) Lightheadedness; Translations: [Dizziness and giddiness] Onset: 5 03-06-2025 Episodic Deficiency and other anemia (5 sources) Anemia; Translations: [Anemia, unspecified] 12-30-2024 Episodic Deficiency and other anemia (2 sources) Anemia, unspecified; Translations: [Anemia, unspecified type] Onset: Episodic Deficiency and other anemia (1 source) Iron deficiency anemia; Translations: [Iron deficiency anemia, unspecified] 03-10-2025 Episodic Diabetes mellitus without complication (20 sources) Type 2 diabetes mellitus without complication; Translations: [Type 2 diabetes mellitus without complications] Onset: 7 01-19-2017 Chronic Disorders of lipid metabolism (20 sources) Dyslipidemia; Translations: [Hyperlipidemia, unspecified] Onset: 4 10-04-2021 Chronic Disorders usually diagnosed in infancy, childhood, or adolescence (20 sources) Attention deficit hyperactivity disorder, predominantly inattentive type; Translations: [Other specified behavioral and emotional disorders with onset usually occurring in childhood and adolescence] Onset: 3 Chronic Diverticulosis and diverticulitis (20 sources) Diverticular disease; Translations: [Diverticulosis of intestine, part unspecified, without perforation or abscess without bleeding] Onset: 4 03-31-2014 Chronic Esophageal disorders (20 sources) Gastro-esophageal reflux disease without esophagitis; Translations: [Gastroesophageal reflux disease without esophagitis] Onset: 8 09-26-2018 Chronic Headache, including migraine (20 sources) Migraine, unspecified, not intractable, without status migrainosus; Translations: [Migraine without aura, not refractory ] Onset: 5 09-11-2015 Chronic Joint disorders and dislocations; trauma-related (20 sources) Joint derangement; Translations: [Other internal derangements of unspecified knee] Onset: 3 02-04-2014 Chronic Miscellaneous mental health disorders (20 sources) Primary insomnia; Translations: [Primary insomnia] Onset: 0 07-28-2020 Chronic Mood disorders (20 sources) Mood disorder; Translations: [Unspecified mood [affective] disorder] Onset: 4 03-31-2014 Chronic Mood disorders (2 sources) Major depressive disorder, single episode, unspecified; Translations: [Major depressive disorder, single episode, unspecified] Onset: 7 Nonmalignant breast conditions (20 sources) Lump of subareolar area of right breast; Translations: [Unspecified lump in right breast, subareolar] Onset: 5 Resolved: 5 11-22-2024 Episodic Nonspecific chest pain (4 sources) Chest pain, unspecified; Translations: [Chest pain] Onset: 8 10-20-2018 Episodic Nutritional deficiencies (3 sources) Cobalamin deficiency; Translations: [Deficiency of other specified B group vitamins] Onset: 5 03-10-2025 Episodic Other and unspecified benign neoplasm (2 sources) Pituitary adenoma; Translations: [Benign neoplasm of pituitary gland] 12-20-2024 Episodic Other circulatory disease (2 sources) Abnormal chest sounds; Translations: [Other specified symptoms and signs involving the circulatory and respiratory systems] 12-30-2024 Episodic Other circulatory disease (1 source) Other specified symptoms and signs involving the circulatory and respiratory systems; Translations: [Abnormal lung sounds] Onset: Episodic Other connective tissue disease (1 source) Pain in right foot; Translations: [Pain in right foot] 10-27-2023 Episodic Other connective tissue disease (4 sources) Adhesive capsulitis of right shoulder; Translations: [Adhesive capsulitis of right shoulder] 02-24-2025 Episodic Other connective tissue disease (1 source) Adhesive capsulitis of right shoulder; Translations: [Adhesive capsulitis of right shoulder] Onset: Episodic Other endocrine disorders (1 source) Pituitary gland enlarged; Translations: [Other disorders of pituitary gland] 03-03-2025 Chronic Other endocrine disorders (1 source) Other disorders of pituitary gland; Translations: [Pituitary gland enlarged (HCC)] Onset: Chronic Other gastrointestinal disorders (1 source) Burping; Translations: [Eructation] 01-21-2025 Episodic Other gastrointestinal disorders (2 sources) Esophageal dysphagia; Translations: [Other dysphagia] 02-06-2025 Episodic Other gastrointestinal disorders (1 source) Other dysphagia; Translations: [Esophageal dysphagia] Onset: Episodic Other liver diseases (20 sources) Steatosis of liver; Translations: [Fatty (change of) liver, not elsewhere classified] Onset: 5 10-28-2024 Chronic Other liver diseases (2 sources) Fatty (change of) liver, not elsewhere classified; Translations: [Other chronic nonalcoholic liver disease] Onset: 5 02-06-2025 Chronic Other liver diseases (20 sources) Alkaline phosphatase raised; Translations: [Abnormal levels of other serum enzymes] Onset: 5 10-25-2024 Episodic Other lower respiratory disease (2 sources) Restrictive lung disease; Translations: [Other disorders of lung] 10-21-2018 Episodic Other lower respiratory disease (1 source) Cough; Translations: [Cough] 10-15-2021 Episodic Other lower respiratory disease (1 source) Dyspnea; Translations: [Shortness of breath] 12-30-2024 Episodic Other non-traumatic joint disorders (1 source) Pain in right knee; Translations: [Pain in joint, lower leg] 10-20-2020 Episodic Other nutritional; endocrine; and metabolic disorders (20 sources) Severe obesity; Translations: [Morbid (severe) obesity due to excess calories] Onset: 1 03-04-2021 Chronic Other nutritional; endocrine; and metabolic disorders (20 sources) Obese class II; Translations: [Obesity, unspecified] Onset: 3 10-21-2022 Chronic Other nutritional; endocrine; and metabolic disorders (2 sources) Body mass index 30+ - obesity; Translations: [Obesity, unspecified] 10-21-2018 Chronic Other nutritional; endocrine; and metabolic disorders (1 source) Body mass index (BMI) 36.0-36.9, adult; Translations: [Class 2 severe obesity with serious comorbidity and body mass index (BMI) of 36.0 to 36.9 in adult, unspecified obesity type (HCC)] Onset: 5 Chronic Other nutritional; endocrine; and metabolic disorders (1 source) Morbid (severe) obesity due to excess calories; Translations: [Class 2 severe obesity with serious comorbidity and body mass index (BMI) of 36.0 to 36.9 in adult, unspecified obesity type (HCC)] Onset: 5 Chronic Other screening for suspected conditions (not mental disorders or infectious disease) (2 sources) CT of chest abnormal; Translations: [Abnormal findings on diagnostic imaging of other specified body structures] 10-21-2018 Chronic Other screening for suspected conditions (not mental disorders or infectious disease) (20 sources) Prolonged QT interval; Translations: [Abnormal electrocardiogram [ECG] [EKG]] Onset: 1 04-20-2021 Episodic Other skin disorders (2 sources) Cyst ; Translations: [Follicular cyst of the skin and subcutaneous tissue, unspecified] 03-06-2019 Episodic Other skin disorders (2 sources) Sebaceous cyst of skin; Translations: [Sebaceous cyst] 02-25-2019 Episodic Other skin disorders (20 sources) Foot callus; Translations: [Corns and callosities] Onset: 5 12-30-2024 Episodic Other upper respiratory disease (20 sources) Allergic rhinitis; Translations: [Allergic rhinitis, unspecified] Onset: 4 03-31-2014 Chronic Pneumonia (5 sources) Pneumonia, unspecified organism; Translations: [Pneumonia] Onset: 8 10-21-2018 Episodic Residual codes; unclassified (20 sources) Restlessness and agitation; Translations: [Restlessness and agitation] Onset: 4 03-31-2014 Chronic Residual codes; unclassified (20 sources) Obstructive sleep apnea syndrome; Translations: [Obstructive sleep apnea (adult) (pediatric)] Onset: 7 12-18-2017 Chronic Residual codes; unclassified (1 source) Obstructive sleep apnea (adult) (pediatric); Translations: [MIKE (obstructive sleep apnea)] Onset: 5 Chronic Residual codes; unclassified (2 sources) Family history of cancer of colon; Translations: [Family history of malignant neoplasm of digestive organs] 08-30-2022 Episodic Residual codes; unclassified (1 source) Family history of malignant neoplasm of digestive organs; Translations: [Family history of colon cancer] Onset: 5 Episodic Respiratory failure; insufficiency; arrest (adult) (2 sources) Acute respiratory failure; Translations: [Acute respiratory failure, unspecified whether with hypoxia or hypercapnia] 10-21-2018 Episodic Skin and subcutaneous tissue infections (7 sources) Cellulitis of skin; Translations: [Cellulitis, unspecified] Onset: 4 Episodic Thyroid disorders (20 sources) Multinodular goiter; Translations: [Nontoxic multinodular goiter] Onset: 8 12-22-2020 Chronic Unclassified (2 sources) Sleep apnea, unspecified; Translations: [Sleep apnea, unspecified] Onset: 8 Unclassified (2 sources) Other specified postprocedural states; Translations: [Other specified postprocedural states] Onset: 7 Unclassified (20 sources) Mass of body structure; Translations: [Lump] Onset: 0 11-16-2019 Unclassified (1 source) Acute pain of right shoulder 12-20-2024 Unclassified (1 source) Class 2 severe obesity with serious comorbidity and body mass index (BMI) of 36.0 to 36.9 in adult, unspecified obesity type (HCC); Translations: [Class 2 severe obesity with serious comorbidity and body mass index (BMI) of 36.0 to 36.9 in adult, unspecified obesity type (HCC)] Onset: 5 Viral infection (6 sources) Zoster without complications; Translations: [Disease caused by 2019-nCoV] Onset: 7 09-28-2023 Episodic Past or Other Problems Problem Classification Problem Date Documented Date Episodic/Chronic Abdominal hernia (20 sources) Hiatal hernia; Translations: [Diaphragmatic hernia without obstruction or gangrene] Onset: 03-31-2014 03-31-2014 Episodic Abdominal pain (3 sources) Unspecified abdominal pain; Translations: [Epigastric pain] Onset: 05-03-2017 Episodic Allergic reactions (2 sources) Allergy status to other drugs, medicaments and biological substances status; Translations: [Allergy status to oth drug/meds/biol subst status] Onset: 05-03-2017 Episodic Disorders of teeth and jaw (20 sources) Temporomandibular joint disorder; Translations: [Unspecified temporomandibular joint disorder, unspecified side] Onset: 03-31-2014 10-04-2021 Episodic Fever of unknown origin (2 sources) Fever, unspecified; Translations: [Fever, unspecified] Onset: 10-09-2017 Episodic Immunizations and screening for infectious disease (20 sources) Raised antinuclear antibody; Translations: [Other specified abnormal immunological findings in serum] Onset: 03-31-2014 03-31-2014 Episodic Other aftercare (19 sources) Drug therapy finding; Translations: [Other long-term (current) drug therapy] Onset: 09-26-2018 09-26-2018 Episodic Other aftercare (20 sources) Patient encounter status; Translations: [Other watermaster (current) drug therapy] Onset: 07-28-2020 07-28-2020 Episodic Other aftercare (1 source) Other long-term (current) drug therapy; Translations: [Medication management] Onset: 07-28-2020 Episodic Other and unspecified benign neoplasm (20 sources) History of polyp of colon; Translations: [Personal history of colonic polyps] Onset: 03-31-2014 11-16-2019 Episodic Other connective tissue disease (19 sources) Medial epicondylitis of right humerus; Translations: [Medial epicondylitis, right elbow] Onset: 05-24-2019 05-24-2019 Episodic Other connective tissue disease (20 sources) Other symptoms and signs involving the musculoskeletal system; Translations: [Other musculoskeletal symptoms referable to limbs] Onset: 10-21-2020 Resolved: 12-22-2020 12-22-2020 Episodic Other connective tissue disease (2 sources) Pain in right foot; Translations: [Pain in right foot] Onset: 10-27-2023 Episodic Other infections; including parasitic (20 sources) Personal history of other infectious and parasitic diseases; Translations: [History of COVID-19] Onset: 09-23-2023 12-06-2023 Episodic Other liver diseases (1 source) Abnormal levels of other serum enzymes; Translations: [Elevated alkaline phosphatase level] Onset: 10-25-2024 Episodic Other non-traumatic joint disorders (20 sources) Joint stiffness; Translations: [Stiffness of right knee, not elsewhere classified] Onset: 10-21-2020 Resolved: 12-22-2020 12-22-2020 Episodic Other non-traumatic joint disorders (20 sources) Pain in right shoulder; Translations: [Pain in joint, shoulder region] Onset: 06-12-2024 05-21-2024 Episodic Residual codes; unclassified (20 sources) Family history of malignant neoplasm of gastrointestinal tract; Translations: [Family history of malignant neoplasm of digestive organs] Onset: 03-31-2014 11-16-2019 Episodic Results Test Name Value Interpretation Reference Range Facility [facility] 03-10-2025 CNOV Office Visit (GENSWS ) -- BIANCA DELAROSA ([id number]) 1975 M Date Time Provider Department 03/10/25 8:30 AM [facility] During your visit today, we recorded the following information about you: Pulse Respiration Blood pressure Weight 98/minute 16/minute 114/74 125.4 kg Nelda Quigley, GHULAM.CIRCUIT COURT CLERK 03/10/2025 9:21 AM Signed HISTORY AND PHYSICAL Bianca Delarosa : 1975 REFERRING PHYSICIAN: Kenyatta Castaneda [address] [place] [address] CHIEF COMPLAINT: Patient presents with: low hgb: Low Hgb. SOB easy. Easily fatigued. PCP wants colonoscopy HPI: Bianca is a 49 year old male referred for endoscopy. Bianca notes anemia. Last HANDH 9.6 AND 31.6. Bianca notes abdominal pain. -over the last week has had low abdominal pain while having bm which passes after bm is finished Bianca denies diarrhea. Bianca denies constipation. iBanca notes a change in bowel habits. -used to have 2-3 bm a day, now going once Bianca denies melena. Bianca denies bright red blood per rectum. Bianca denies hemorrhoids. Bianca notes family history of colon issues. Father with colon cancer and 2 paternal uncles with colon cancer Bianca is scheduled for EGD for GERD and dysphasia with Dr. Bowman at [facility] on 04/04- she does not complete colonoscopies AND he notes he wants the procedures completed separately. Bianca notes hx of uncontrolled T2DM- recent weight loss. Last A1C was 10.5 He also notes getting fatigued easily- attributes this to his anemia. He denies CP, dizziness, passing out, recent over night stays in the hospital. Bianca has undergone prior endoscopy. Last colonoscopy was 08/[address] Bliss at [facility]. Sedation: Midazolam 7 mg IV, Fentanyl 100 micrograms IV Impression: - Diverticulosis in the sigmoid colon, in the descending colon, in the transverse colon and in the ascending colon. - Non-bleeding internal hemorrhoids. - No specimens collected. Current Outpatient Medications Medication Sig busPIRone (BUSPAR) 15 mg tablet Take one tab by mouth twice a day. metFORMIN (GLUCOPHAGE) 500 mg tablet TAKE 2 TABLETS BY MOUTH TWO TIMES A DAY WITH MEALS. dexmethylphenidate XR (FOCALIN XR) 20 mg biphasic capsule Take 1 capsule by mouth once daily for 30 days. DULoxetine (CYMBALTA) 60 mg capsule Take 1 capsule by mouth once daily. albuterol HFA (PROVENTIL HFA, VENTOLIN HFA) 90 mcg/actuation inhaler Inhale 2 Puffs as instructed three times a day. OLANZapine (ZYPREXA) 5 mg tablet Take 1 tablet by mouth daily at bedtime. DULoxetine (CYMBALTA) 30 mg capsule Take 1 capsule by mouth once daily. Blood-Glucose Sensor (FREESTYLE EVERT 3 SENSOR) agnes USE ONE SENSOR EVERY 14 DAY, IDDM, E11.9 sucralfate (CARAFATE) 1 gram tablet Take one tab with lunch and before bed. Fenofibrate 120 mg tab Take 1 tablet by mouth once daily. esomeprazole (NEXIUM) 40 mg capsule Take 1 capsule by mouth two times a day. atorvastatin (LIPITOR) 80 mg tablet Take 1 tablet by mouth once daily. doxepin capsule 10 mg Take 1 capsule by mouth daily at bedtime. HUMALOG KWIKPEN INSULIN 100 unit/mL Inject subcutaneously 20 units breakfast, 20 units lunch, 20 units dinner plus sliding scale up to 82 units daily. Dispense 75 mL for a 90 day supply. Insulin Wykoff, Disposable, (DROPLET PEN NEEDLE) 31 gauge x 3/16 Use 4 PEN NEEDLES to inject MEDICATION subcutaneously daily zonisamide (ZONEGRAN) 25 mg capsule Take 1 capsule by mouth once daily. multivitamin tablet Take 1 tablet by mouth once daily. peg 3350-Electrolytes (GOLYTELY) 236-22.74-6.74 -5.86 gram suspension Take 4,000 mL by mouth one time only for 1 dose. Refer to printed prep instructions from your provider. methylphenidate CD (METADATE CD) 20 mg biphasic capsule Take 1 capsule by mouth once daily for 30 days. No current facility-administered medications for this visit. ALLERGIES: Topamax [Topiramate], Celexa [Citalopram Hydrobromide], Effexor [Venlafaxine Analogues], Reglan [Metoclopramide Hcl], and Zoloft [Sertraline Hcl] PAST MEDICAL HISTORY Diagnosis Date Abnormal finding on MRI of brain 12/11/2024 Possible pituitary adenoma. 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 Elevated antinuclear antibody (JALEEL) level 03/31/2014 Family history of malignant neoplasm of gastrointestinal tract 03/31/2014 Fatty liver 10/28/19 (more content not included)... Normal [facility] CNPNon 03-10-2025 CNPN Telephone (FAMPWS) -- BIANCA DELAROSA ([id number]) 1975 M Date Time Provider Department 03/10/25 KENYATTA CASTANEDA [facility] During your visit today, we recorded the following information about you: Lois Alberts LPN 03/10/2025 9:24 AM Signed Pt is calling for lab results. Pt is asking what the next step is because he is feeling awful. Latest Ref Rng 03/07/2025 Iron 41 - 186 ug/dL 17 (L) TIBC 232 - 386 ug/dL 387 (H) Transferrin Saturation 15.0 - 57.0 % 4.4 (L) Ferritin 30.3 - 565.7 ng/mL 5.9 (L) Folate >4.7 ng/mL 8.7 Vitamin B12 232 - 1,245 pg/mL 295 Legend: (L) Low (H) High MADELINE Kenny Rayanne, PA-C 03/10/2025 12:34 PM Addendum Start iron supplement. I will send in. But also needs the further work up we discussed to see if any blood loss from colon. Repeat labs in 1-2 weeks to trend levels to make sure not worsening. JAK Hopkins Sherill A, LPN 03/10/2025 12:58 PM Signed Patient notified of results and provider's instructions. Patient verbalizes understanding. Carmelo Lopez LPN Allergies As of Date: 03/10/2025 Noted Allergy Reaction TOPAMAX (TOPIRAMATE) 02/04/2014 1 - Mental Status Change Comments: Unable to remember anything CELEXA (CITALOPRAM HYDROBROMIDE) 10/22/2014 14 - Other: See Comments Comments: uneffective EFFEXOR (VENLAFAXINE ANALOGUES) 10/22/2014 14 - Other: See Comments Comments: Sexual side affect REGLAN (METOCLOPRAMIDE HCL) 01/24/2007 16 - Unknown ZOLOFT (SERTRALINE HCL) 10/22/2014 14 - Other: See Comments Comments: drowsy Date Reviewed: 03/10/2025 Reviewed by: Nelda Quigley APRN.CIRCUIT COURT CLERK - Fully Assessed Reason for Visit: Results, Lab [1201] Primary Visit Diagnosis:Iron deficiency anemia, unspecified iron deficiency anemia type [D50.9] Order(s):ferrous sulfate 325 mg (65 mg iron) tabletTake 1 tablet by mouth two times a day with meals.Disp: 60 tabletRfl: 0 COMPLETE BLOOD COUNT AND DIFFERENTIAL [SQCBCDIF] Order #: [id number] FUTURE IRON AND TIBC [SQIRON] Order #: [id number] FUTURE Prescriptions as of 03/10/2025 - peg 3350-Electrolytes (GOLYTELY) 236-22.74-6.74 -5.86 gram suspension Take 4,000 mL by mouth one time only for 1 dose. Refer to printed prep instructions from your provider. - ferrous sulfate 325 mg (65 mg iron) tablet Take 1 tablet by mouth two times a day with meals. - busPIRone (BUSPAR) 15 mg tablet Take one tab by mouth twice a day. - metFORMIN (GLUCOPHAGE) 500 mg tablet TAKE 2 TABLETS BY MOUTH TWO TIMES A DAY WITH MEALS. - dexmethylphenidate XR (FOCALIN XR) 20 mg biphasic capsule Take 1 capsule by mouth once daily for 30 days. - methylphenidate CD (METADATE CD) 20 mg biphasic capsule Take 1 capsule by mouth once daily for 30 days. - DULoxetine (CYMBALTA) 60 mg capsule Take 1 capsule by mouth once daily. - albuterol HFA (PROVENTIL HFA, VENTOLIN HFA) 90 mcg/actuation inhaler Inhale 2 Puffs as instructed three times a day. - OLANZapine (ZYPREXA) 5 mg tablet Take 1 tablet by mouth daily at bedtime. - DULoxetine (CYMBALTA) 30 mg capsule Take 1 capsule by mouth once daily. - Blood-Glucose Sensor (FREESTYLE EVERT 3 SENSOR) agnes USE ONE SENSOR EVERY 14 DAY, IDDM, E11.9 - sucralfate (CARAFATE) 1 gram tablet Take one tab with lunch and before bed. - Fenofibrate 120 mg tab Take 1 tablet by mouth once daily. - esomeprazole (NEXIUM) 40 mg capsule Take 1 capsule by mouth two times a day. - atorvastatin (LIPITOR) 80 mg tablet Take 1 tablet by mouth once daily. - doxepin capsule 10 mg Take 1 capsule by mouth daily at bedtime. - HUMALOG KWIKPEN INSULIN 100 unit/mL Inject subcutaneously 20 units breakfast, 20 units lunch, 20 units dinner plus sliding scale up to 82 units daily. Dispense 75 mL for a 90 day supply. - Insulin Wykoff, Disposable, (DROPLET PEN NEEDLE) 31 gauge x 3/16 Use 4 PEN NEEDLES to inject MEDICATION subcutaneously daily - zonisamide (ZONEGRAN) 25 mg capsule Take 1 capsule by mouth once daily. - multivitamin tablet Take 1 tablet by mouth once daily. Problem List As Of Date 03/10/2025 Noted Resolved Other joint derangement, not elsewhere classifi*03/25/2013 Agitation [R45.1] 03/31/2014 Allergic rhinitis [J30.9] 03/31/2014 Elevated antinuclear antibody (JALEEL) level [R76.*03/31/2014 Diverticulosis [K57.90] 03/31/2014 Dyslipidemia [E78.5] 03/31/2014 Family history of malignant neoplasm of gastroi*03/31/2014 Hiatal hernia [K44.9] 03/31/2014 Mood disorder (HCC) [F39] 03/31/2014 TMJ (temporomandibular joint disorder) [M26.609]03/31/2014 Hx of colonic polyp [Z86.0100] 03/31/2014 Well adult exam [Z00.00] 12/17/2014 Allergy-induced asthma [J45.909] 05/12/2015 Migraine without aura and without status migrai*09/11/2015 Type 2 diabetes mellitus without complication, *01/19/2017 Obstructive sleep apnea syndrome [G47.33] 01/27/2017 Diabetic eye exam (HCC) [ (more content not included)... Normal [facility] 03-07-2025 [facility] Tele[facility] (FAMPWS) -- BIANCA DELAROSA ([id number]) 1975 M Date Time Provider Department 03/07/25 KENYATTA CASTANEDA [facility] During your visit today, we recorded the following information about you: Allergies As of Date: 03/07/2025 Noted Allergy Reaction TOPAMAX (TOPIRAMATE) 02/04/2014 1 - Mental Status Change Comments: Unable to remember anything CELEXA (CITALOPRAM HYDROBROMIDE) 10/22/2014 14 - Other: See Comments Comments: uneffective EFFEXOR (VENLAFAXINE ANALOGUES) 10/22/2014 14 - Other: See Comments Comments: Sexual side affect REGLAN (METOCLOPRAMIDE HCL) 01/24/2007 16 - Unknown ZOLOFT (SERTRALINE HCL) 10/22/2014 14 - Other: See Comments Comments: drowsy Date Reviewed: 03/06/2025 Reviewed by: Carmelo Lopez LPN - Fully Assessed Prescriptions as of 03/07/2025 - busPIRone (BUSPAR) 15 mg tablet Take one tab by mouth twice a day. - metFORMIN (GLUCOPHAGE) 500 mg tablet TAKE 2 TABLETS BY MOUTH TWO TIMES A DAY WITH MEALS. - dexmethylphenidate XR (FOCALIN XR) 20 mg biphasic capsule Take 1 capsule by mouth once daily for 30 days. - methylphenidate CD (METADATE CD) 20 mg biphasic capsule Take 1 capsule by mouth once daily for 30 days. - DULoxetine (CYMBALTA) 60 mg capsule Take 1 capsule by mouth once daily. - albuterol HFA (PROVENTIL HFA, VENTOLIN HFA) 90 mcg/actuation inhaler Inhale 2 Puffs as instructed three times a day. - OLANZapine (ZYPREXA) 5 mg tablet Take 1 tablet by mouth daily at bedtime. - DULoxetine (CYMBALTA) 30 mg capsule Take 1 capsule by mouth once daily. - Blood-Glucose Sensor (FREESTYLE EVERT 3 SENSOR) agnes USE ONE SENSOR EVERY 14 DAY, IDDM, E11.9 - sucralfate (CARAFATE) 1 gram tablet Take one tab with lunch and before bed. - Fenofibrate 120 mg tab Take 1 tablet by mouth once daily. - esomeprazole (NEXIUM) 40 mg capsule Take 1 capsule by mouth two times a day. - atorvastatin (LIPITOR) 80 mg tablet Take 1 tablet by mouth once daily. - doxepin capsule 10 mg Take 1 capsule by mouth daily at bedtime. - TRESIBA FLEXTOUCH U-100 100 unit/mL (3 mL) injection pen Inject 60 units subcutaneous daily at bedtime. Dispense 60 mL for 90 day supply. - HUMALOG KWIKPEN INSULIN 100 unit/mL Inject subcutaneously 20 units breakfast, 20 units lunch, 20 units dinner plus sliding scale up to 82 units daily. Dispense 75 mL for a 90 day supply. - Insulin Wykoff, Disposable, (DROPLET PEN NEEDLE) 31 gauge x 3/16 Use 4 PEN NEEDLES to inject MEDICATION subcutaneously daily - zonisamide (ZONEGRAN) 25 mg capsule Take 1 capsule by mouth once daily. - multivitamin tablet Take 1 tablet by mouth once daily. Problem List As Of Date 03/07/2025 Noted Resolved Other joint derangement, not elsewhere classifi*03/25/2013 Agitation [R45.1] 03/31/2014 Allergic rhinitis [J30.9] 03/31/2014 Elevated antinuclear antibody (JALEEL) level [R76.*03/31/2014 Diverticulosis [K57.90] 03/31/2014 Dyslipidemia [E78.5] 03/31/2014 Family history of malignant neoplasm of gastroi*03/31/2014 Hiatal hernia [K44.9] 03/31/2014 Mood disorder (HCC) [F39] 03/31/2014 TMJ (temporomandibular joint disorder) [M26.609]03/31/2014 Hx of colonic polyp [Z86.0100] 03/31/2014 Well adult exam [Z00.00] 12/17/2014 Allergy-induced asthma [J45.909] 05/12/2015 Migraine without aura and without status migrai*09/11/2015 Type 2 diabetes mellitus without complication, *01/19/2017 Obstructive sleep apnea syndrome [G47.33] 01/27/2017 Diabetic eye exam (HCC) [Z01.00, E11.9] 01/27/2017 Multiple thyroid nodules [E04.2] 02/27/2018 Major depressive disorder with single episode, *09/26/2018 GERD without esophagitis [K21.9] 09/26/2018 Lump [VUF4216] 11/16/2019 ISABELLA (generalized anxiety disorder) [F41.1] 06/22/2020 Primary insomnia [F51.01] 07/28/2020 Medication management [Z79.899] 07/28/2020 Joint stiffness of right lower leg [M25.661] 10/21/2020 12/22/2020 Right leg weakness [R29.898] 10/21/2020 12/22/2020 QT prolongation [R94.31] 04/20/2021 Obesity, Class II, BMI 35-39.9 [E66.812] 10/21/2022 Attention deficit disorder (ADD) without hypera*12/07/2022 History of COVID-19 [Z86.16] 09/23/2023 Acute pain of right shoulder [M25.511] 06/12/2024 Fatty liver [K76.0] 10/28/2024 Gynecomastia, male [N62] 12/03/2024 Elevated prolactin level [R79.89] 12/11/2024 Abnormal finding on MRI of brain [R90.89] 12/11/2024 Gynecomastia [N62] 12/20/2024 12/30/2024 Elevated alkaline phosphatase level [R74.8] 12/30/2024 Callus of foot [L84] 12/30/2024 Encounter Status:Closed by KENYATTA ROSE on 03/07/25 [facility] 03-07-2025 Ferritin [Mass/Vol] 5.9 ng/mL Low 30.3 - 565.7 ng/mL [facility] FOLATE, SERUMon 03-07-2025 Folate [Mass/Vol] 8.7 ng/mL 4.7 - PINF ng/mL [facility] Ferritin SerPl-mCncon 2024 Ferritin [Mass/Vol] 5.9 ng/mL Low 30.3-565.7 [facility] Comment on above: Order Comment: Speci men Type: BLOOD SPECIMEN Ordering Facility: [facility] Address: [address] [place] [address] Performed By: #### 2 276-4, 2283-8, 9, 08265-2 #### [facility] CLIA [id number] [address] [place] [address] [place] Folate SerPl-mCncon 03-07-20 25 Folate [Mass/Vol] 8.7 ng/mL Normal >4.7 [facility] Comment on above: Order Comment: Speci men Type: BLOOD SPECIMEN Ordering Facility: [facility] Address: [address] [place] [address] Performed By: #### 2 276-4, 2283-8, 2132-06, #### [facility] CLIA [id number] [address] [place] Iron and Iron binding capaci ty panelon 03-07-2025 Iron [Mass/Vol] 17 ug/dL Low 41 - 186 ug/dL [facility] Iron binding capacity [Mass/Vol] 387 ug/dL High 232 - 386 ug/dL [facility] Iron saturation [Mass fraction] 4.4 % Low 15.0 - 57.0 % [facility] Iron [Mass/Vol] 17 ug/dL Low 41-186 [facility] Comment on above: Order Comment: Speci men Type: BLOOD SPECIMEN Ordering Facility: [facility] Address: [facility] [place] [address] Performed By: #### 2 276-4, 2283-8, 9, 18038-4 #### [facility] CLIA [id number] [address] [place] [address] [place] Iron binding capacity [Mass/Vol] 387 ug/dL High 232-386 [facility] Comment on above: Order Comment: Speci men Type: BLOOD SPECIMEN Ordering Facility: [facility] Address: [address] [place] [address] Performed By: #### 2 276-4, 8, 2132-06, #### [facility] CLIA [id number] [address] STATES OF [facility] Iron saturation [Mass fraction] 4.4 % Low 15.0-57.0 [facility] Comment on above: Order Comment: Speci men Type: BLOOD SPECIMEN Ordering Facility: [facility] Address: [address] [place] [address] Performed By: #### 2 276-4, 8, 2132-06, #### [facility] CLIA [id number] [address] STATES [place] [facility] No Panel Informationon 03-07 Interpretation and review of laboratory results Normal [facility] Interpretation and review of laboratory results Abnormal [facility] VITAMIN B12on 03-07-2025 Cobalamin (Vitamin B12) [Mass/Vol] 295 pg/mL 232 - 1245 pg/mL [facility] Vit B12 SerPl-mCncon 025 Cobalamin (Vitamin B12) [Mass/Vol] 295 pg/mL Normal 232-1245 [facility] Comment on above: Order Comment: Speci men Type: BLOOD SPECIMEN Ordering Facility: [facility] Address: [facility] [place] [address] Performed By: #### 2 276-4, 8, 2132-06, #### [facility] CLIA [id number] [address] [place] [address] [place] Basic metabolic 2000 panelon 03-06-2025 Anion gap [Moles/Vol] 14 mmol/L Normal 8-15 [facility] Comment on above: Order Comment: Speci men Type: BLOOD SPECIMEN Ordering Facility: [facility] Address: [address] [place] [address] [place] [address] Performed By: #### 6 768-6, 2132-06, #### [facility] CLIA [id number] [address] [place], [place] [address] [place] Calcium [Mass/Vol] 8.8 mg/dL Normal 8.5-10.2 [facility] Comment on above: Order Comment: Speci men Type: BLOOD SPECIMEN Ordering Facility: [facility] Address: [address] [place] [address] Performed By: #### 6 768-6, 2132-06, #### [facility] CLIA [id number] [address] [place], [place] [address] [place] Chloride [Moles/Vol] 101 mmol/L Normal 98-107 [facility] Comment on above: Order Comment: Speci men Type: BLOOD SPECIMEN Ordering Facility: [facility] Address: [address] [place] [address] Performed By: #### 6 768-6, 2132-06, #### [facility] CLIA [id number] [address] [place], [place] [address] [place] CO2 [Moles/Vol] 22 mmol/L Normal 22-30 [facility] Comment on above: Order Comment: Speci men Type: BLOOD SPECIMEN Ordering Facility: [facility] Address: [address] [place], [place] [id number] Performed By: #### 6 768-6, 2132-06, #### [facility] CLIA [id number] [address] [place], [place] [address] [place] Creatinine [Mass/Vol] 0.79 mg/dL Normal 0.73-1.22 [facility] Comment on above: Order Comment: Speci men Type: BLOOD SPECIMEN Ordering Facility: [facility] Address: [address] [place], [place] [address] Performed By: #### 6 768-6, 2132-06, #### [facility] CLIA [id number] [address] [place] [address] [place] Creatinine and Glomerular filtration rate.predicted panel (S/P/Bld) 108 mL/min/1.73m??? Normal >=60 [facility] Comment on above: Order Comment: Catherine hendrix Type: BLOOD SPECIMEN Ordering Facility: [facility] Address: [address] [place] [address] Result Comment: Tia mated Glomerular Filtration Rate (eGFR) is calculated using the 2020 CKD-EPI creatinine equation. This equation utilizes serum creatinine, sex, and age as parameters. The creatinine assay has traceable calibration to isotope dilution-mass spectrometry. Refer to KDIGO guidelines for clinical interpretation. In patients with unstable renal function, e.g. those with acute kidney injury, the eGFR may not accurately reflect actual GFR. Performed By: #### 6 768-6, 2131-9, 73281-4 #### [facility] CLIA [id number] [address] [place] [address] [place] Glucose [Mass/Vol] 171 mg/dL High 74-99 [facility] Comment on above: Order Comment: Catherine hendrix Type: BLOOD SPECIMEN Ordering Facility: [facility] Address: [address] [place] [address] Result Comment: The [place] Diabetes [employer] (ADA) provides guidance for cutoff values for fasting glucose and random glucose. The ADA defines fasting as no caloric intake for at least 8 hours. Fasting plasma glucose results between 100 to 125 mg/dL indicate increased risk for diabetes (prediabetes). Fasting plasma glucose results greater than or equal to 126 mg/dL meet the criteria for diagnosis of diabetes. In the absence of unequivocal hyperglycemia, results should be confirmed by repeat testing. In a patient with classic symptoms of hyperglycemia or hyperglycemic crisis, random plasma glucose results greater than or equal to 200 mg/dL meet the criteria for diagnosis of diabetes. Reference: Standards of Medical Care in Diabetes 2016, [place] [employer]. Diabetes Care. 2016.39(Suppl 1). Performed By: #### 6 768-6, 2131-9, 97515-6 #### [facility] CLIA [id number] [address] [place] [address] [place] Potassium [Moles/Vol] 4.3 mmol/L Normal 3.7-5.1 [facility] Comment on above: Order Comment: Speci men Type: BLOOD SPECIMEN Ordering Facility: [facility] Address: [address] [place] [address] Performed By: #### 6 768-6, 2132-06, #### [facility] CLIA [id number] [address] [place], [place] [address] [place] Sodium [Moles/Vol] 137 mmol/L Normal 136-144 [facility] Comment on above: Order Comment: Speci men Type: BLOOD SPECIMEN Ordering Facility: [facility] Address: [address] [place] [address] Performed By: #### 6 768-6, 2132-06, #### [facility] CLIA [id number] [address] [place] [address] [place] Urea nitrogen [Mass/Vol] 12 mg/dL Normal 9-24 [facility] Comment on above: Order Comment: Speci men Type: BLOOD SPECIMEN Ordering Facility: [facility] Address: [address] [place] [address] Performed By: #### 6 768-6, 2132-06, #### [facility] CLIA [id number] [address] [place], [place] [address] [place] CBC W Auto Differential pane l (Bld)on 03-06-2025 Basophils (Bld) [#/Vol] 0.06 10*3/uL Normal <0.11 [facility] Comment on above: Order Comment: Speci men Type: BLOOD SPECIMEN Ordering Facility: [facility] Address: [address] [place] [address] Performed By: #### 6 768-6, 2132-06, #### [facility] CLIA [id number] [address] [place] [address] [place] Basophils/100 WBC (Bld) 0.6 % Normal [facility] Comment on above: Order Comment: Speci men Type: BLOOD SPECIMEN Ordering Facility: [facility] Address: [address] [place] [address] Performed By: #### 6 768-6, 2132-06, #### [facility] CLIA [id number] [address] [place] [address] [place] Differential cell count method Nom (Bld) Auto Normal [facility] Comment on above: Order Comment: Speci men Type: BLOOD SPECIMEN Ordering Facility: [facility] Address: [address] [place] [address] Performed By: #### 6 768-6, 2132-06, #### [facility] CLIA [id number] [address] [place] [address] [place] Eosinophils (Bld) [#/Vol] 0.13 10*3/uL Normal <0.46 [facility] Comment on above: Order Comment: Speci men Type: BLOOD SPECIMEN Ordering Facility: [facility] Address: [address] [place] [address] Performed By: #### 6 768-6, 2132-06, #### [facility] CLIA [id number] [address] [place] [address] [place] Eosinophils/100 WBC (Bld) 1.3 % Normal [facility] Comment on above: Order Comment: Speci men Type: BLOOD SPECIMEN Ordering Facility: [facility] Address: [address] [place] [address] Performed By: #### 6 768-6, 2132-06, #### [facility] CLIA [id number] [address] [place] [address] [place] Erythrocyte distribution width (RBC) [Ratio] 13.8 % Normal 11.5-15.0 [facility] Comment on above: Order Comment: Speci men Type: BLOOD SPECIMEN Ordering Facility: [facility] Address: [address] [place] [address] Performed By: #### 6 768-6, 2132-06, #### [facility] CLIA [id number] [address] [place] [address] [place] Hematocrit (Bld) [Volume fraction] 31.6 % Low 39.0-51.0 [facility] Comment on above: Order Comment: Speci men Type: BLOOD SPECIMEN Ordering Facility: [facility] Address: [address] [place] [address] Performed By: #### 6 768-6, 2132-06, #### [facility] CLIA [id number] [address] [place] [address] [place] Hemoglobin (Bld) [Mass/Vol] 9.6 g/dL Low 13.0-17.0 [facility] Comment on above: Order Comment: Speci men Type: BLOOD SPECIMEN Ordering Facility: [facility] Address: [address] [place] [address] Performed By: #### 6 768-6, 2132-06, #### [facility] CLIA [id number] [address] [place] [address] [place] Immature granulocytes (Bld) [#/Vol] 0.04 10*3/uL Normal <0.10 [facility] Comment on above: Order Comment: Speci men Type: BLOOD SPECIMEN Ordering Facility: [facility] Address: [address] [place] [address] Performed By: #### 6 768-6, 2132-06, #### [facility] CLIA [id number] [address] [place] [address] [place] Immature granulocytes/100 WBC (Bld) 0.4 % Normal [facility] Comment on above: Order Comment: Speci men Type: BLOOD SPECIMEN Ordering Facility: [facility] Address: [address] [place] [address] Performed By: #### 6 768-6, 2132-06, #### [facility] CLIA [id number] [address] [place] [address] [place] Lymphocytes (Bld) [#/Vol] 2.51 10*3/uL Normal 1.00-4.00 [facility] Comment on above: Order Comment: Speci men Type: BLOOD SPECIMEN Ordering Facility: [facility] Address: [address] [place] [address] Performed By: #### 6 768-6, 2132-06, #### [facility] CLIA [id number] [address] [place] [address] [place] Lymphocytes/100 WBC (Bld) 25.2 % Normal [facility] Comment on above: Order Comment: Speci men Type: BLOOD SPECIMEN Ordering Facility: [facility] Address: [address] [place] [address] Performed By: #### 6 768-6, 2132-06, #### [facility] CLIA [id number] [address] [place] [address] [place] MCH (RBC) [Entitic mass] 23.9 pg Low 26.0-34.0 [facility] Comment on above: Order Comment: Speci men Type: BLOOD SPECIMEN Ordering Facility: [facility] Address: [address] [place] [address] Performed By: #### 6 768-6, 2132-06, #### [facility] CLIA [id number] [address] [place] [address] [place] MCHC (RBC) [Mass/Vol] 30.4 g/dL Low 30.5-36.0 [facility] Comment on above: Order Comment: Speci men Type: BLOOD SPECIMEN Ordering Facility: [facility] Address: [address] [place], [place] [id number] Performed By: #### 6 768-6, 2132-06, #### [facility] CLIA [id number] [address] [place] [address] [place] MCV (RBC) [Entitic vol] 78.6 fL Low 80.0-100.0 [facility] Comment on above: Order Comment: Speci men Type: BLOOD SPECIMEN Ordering Facility: [facility] Address: [address] [place] [address] Performed By: #### 6 768-6, 2132-06, #### [facility] CLIA [id number] [address] [place] [address] [place] Monocytes (Bld) [#/Vol] 0.66 10*3/uL Normal <0.87 [facility] Comment on above: Order Comment: Speci men Type: BLOOD SPECIMEN Ordering Facility: [facility] Address: [address] [place], [place] [address] Performed By: #### 6 768-6, 2132-06, #### [facility] CLIA [id number] [address] [place], [place] [address] [place] Monocytes/100 WBC (Bld) 6.6 % Normal [facility] Comment on above: Order Comment: Speci men Type: BLOOD SPECIMEN Ordering Facility: [facility] Address: [address] [place], [place] [address] Performed By: #### 6 768-6, 2132-06, #### [facility] CLIA [id number] [address] [place], [place] [address] [place] Neutrophils (Bld) [#/Vol] 6.57 10*3/uL Normal 1.45-7.50 [facility] Comment on above: Order Comment: Speci men Type: BLOOD SPECIMEN Ordering Facility: [facility] Address: [address] [place] [address] Performed By: #### 6 768-6, 2132-06, #### [facility] CLIA [id number] [address] [place] [address] [place] Neutrophils/100 WBC (Bld) 65.9 % Normal [facility] Comment on above: Order Comment: Speci men Type: BLOOD SPECIMEN Ordering Facility: [facility] Address: [address] [place] [address] Performed By: #### 6 768-6, 2132-06, #### [facility] CLIA [id number] [address] [place] [address] [place] Nucleated RBC (Bld) [#/Vol] 10*3/uL Normal <0.01 [facility] Comment on above: Order Comment: Speci men Type: BLOOD SPECIMEN Ordering Facility: [facility] Address: [address] [place] [address] Performed By: #### 6 768-6, 2132-06, #### [facility] CLIA [id number] [address] [place] [address] [place] Nucleated RBC/100 WBC (Bld) [Ratio] 0.0 /100 WBC Normal [facility] Comment on above: Order Comment: Speci men Type: BLOOD SPECIMEN Ordering Facility: [facility] Address: [address] [place] [address] Performed By: #### 6 768-6, 2132-06, #### [facility] CLIA [id number] [address] [place] [address] [place] Platelet mean volume (Bld) [Entitic vol] 12.7 fL Normal 9.0-12.7 [facility] Comment on above: Order Comment: Speci men Type: BLOOD SPECIMEN Ordering Facility: [facility] Address: [address] [place] [address] Performed By: #### 6 768-6, 9, 83175-3 #### [facility] CLIA [id number] [address] [place] [address] [place] Platelets (Bld) [#/Vol] 427 10*3/uL High 150-400 [facility] Comment on above: Order Comment: Speci men Type: BLOOD SPECIMEN Ordering Facility: [facility] Address: [address] [place] [address] Performed By: #### 6 768-6, 9, 82820-7 #### [facility] CLIA [id number] [address] [place] [address] [place] RBC (Bld) [#/Vol] 4.02 10*6/uL Low 4.20-6.00 [facility] Comment on above: Order Comment: Speci men Type: BLOOD SPECIMEN Ordering Facility: [facility] Address: [address] [place] [address] Performed By: #### 6 768-6, 2132-06, 85267-4 #### [facility] CLIA [id number] [address] [place] [address] [place] WBC (Bld) [#/Vol] 9.97 10*3/uL Normal 3.70-11.00 [facility] Comment on above: Order Comment: Speci men Type: BLOOD SPECIMEN Ordering Facility: [facility] Address: [address] [place] [address] Performed By: #### 6 768-6, 2131-9, 76974-5 #### [facility] CLIA [id number] [address] [place] [address] [place] CNOVon 03-06-2025 CNOV Office Visit (FAMPWS ) -- BIANCA DELAROSA ([id number]) 1975 M Date Time Provider Department 03/06/25 7:00 AM KENYATTA CASTANEDA During your visit today, we recorded the following information about you: Temperature Pulse Respiration Blood pressure 97 degrees 94/minute 18/minute 126/82 Weight 126.1 kg Kenyatta Castaneda PA-C 03/06/2025 7:50 AM Signed Chief Complaint Patient presents with: Dizziness: X 1 week HPI Bianca Delarosa is a 49 year old male who presents here today for Above Complaints. Dizziness and Tachycardia: - Onset: Approximately one week ago. - Symptoms: Describes dizziness as a weird feeling, similar to being on a boat, accompanied by lightheadedness. - Triggers: Occurs when moving around the house or transitioning from sitting to standing; not present when lying down or turning head side to side. - Severity: Requires leaning on something or sitting down; no episodes of near-syncope. - Associated Symptoms: Noted tachycardia with heart rate reaching 120 bpm during minimal exertion (e.g., moving from kitchen to living room). - Monitoring: Uses a pulse oximeter at home; oxygen saturation consistently in the 90s. - Denies: chest pain, dyspnea, sinus issues, hearing problems, sore throat. - Edema: Mild, variable leg swelling; not atypical for Bianca. - Medication Changes: Recent change in ADHD medication from methylphenidate to Focalin approximately one month ago due to availability issues. - COVID-19: History of multiple COVID-19 infections. - Gastrointestinal Issues: Chronic, managed by the bariatric department. Last 3 Encounter Pulse Readings: Date: Pulse: 03/06/2025 94 02/06/2025 100 01/21/2025 88 Past medical history, appointments, medications, allergies reviewed. Previous Medical History PAST MEDICAL HISTORY Diagnosis Date Abnormal finding on MRI of brain 12/11/2024 Possible pituitary adenoma. 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 Elevated antinuclear antibody (JALEEL) level 03/31/2014 Family history of malignant neoplasm of gastrointestinal tract 03/31/2014 Fatty liver 10/28/2024 US: 10/2024 ISABELLA (generalized anxiety disorder) 06/22/2020 GERD without esophagitis 09/26/2018 Gynecomastia, male 12/03/2024 Right breast Hepatic steatosis 10/25/2024 per [facility] Hiatal hernia 03/31/2014 History of COVID-19 09/23/20232021, 09/2023 Hx of colonic polyp 03/31/2014 Needs next colonoscopy 08/2022 Lump 11/16/2019 benign left palm Major depressive disorder with single episode, in partial remission 09/26/2018 Migraine without aura and without status migrainosus, not intractable 09/11/2015 Mood disorder 03/31/2014 Multiple thyroid nodules 02/27/[address] Lazaro 03/2018 Multiple thyroid nodules 02/27/2018 US 03/2020 per radiology no further f/u needed.. All benign Biopsy 03/[address] Lazaro. Benign. Obesity, Class II, BMI 35-39.9 10/21/2022 Obstructive sleep apnea syndrome 01/27/2017 doesnt wear machine Other joint derangement, not elsewhere classified, lower leg 03/25/2013 Primary insomnia 07/28/2020 QT prolongation 04/20/2021 Seen [facility] 04/19/2021: Retsof to be benign and related to anti-depressants. No changes needed. TMJ (temporomandibular joint disorder) 03/31/2014 Right side Type 2 diabetes mellitus without complication, without long-term current use of insulin (HCC) 01/19/2017 Well adult exam 12/17/2014 Last done:11/16/2019 Previous Surgical History PAST SURGICAL HISTORY Procedure Laterality Date APPENDECTOMY HX 2004 ARTHROTOMY W/MENISCUS REPAIR KNEE Right 04/2021 COLONOSCOPY 06/2012 Dr. Corrigan +polyp, repeat 5 yrs COLONOSCOPY 08/30/2022 repeat in 5 years COLONOSCOPY FLX DX W/COLLJ SPEC WHEN PFRMD 08/16/2017 Colonoscopy, repeat 5 yrs, Dr. Bliss IANDD ABSC SMPL OR SGL Left 03/10/2024 perirectal 2cm x 4 cm PAST SURGICAL HISTORY OF 2009 benign cysts: 1 from head and 2 from neck TONSILLECTOMY HX 1979 Family History FAMILY HISTORY Problem Relation Age of Onset Colon Cancer Father 52 Coronary Artery Disease Father Coronary Artery Disease Mother 60's Hypertension Mother No Known Problems Brother No Known Problems Brother No Known Problems Brother Coronary Artery Disease Maternal Grandmother 60's Stroke Maternal Grandfather Colon Cancer [place] (more content not included)... Normal [facility] TSH SerPl-aCncon 03-06-2025 TSH Qn 2.020 m[IU]/L Normal 0.270-4.200 [facility] Comment on above: Order Comment: Speci men Type: BLOOD SPECIMEN Ordering Facility: [facility] Address: [address] [place] [address] Performed By: #### 6 768-6, 2132-9, 08350-6 #### [facility] CLIA [id number] [address] [place] [address] [place] CNOVon 02-21-2025 CNOV Office Visit (ORMDRG ) -- BIANCA DELAROSA ([id number]) 1975 M Date Time Provider Department 02/21/25 1:30 PM VIKASH BOOTH ORDIONNA During your visit today, we recorded the following information about you: Vikash Booth MD 02/24/2025 7:39 AM Signed ORTHOPAEDIC SHOULDER AND ELBOW SERVICE HISTORY AND PHYSICAL EXAM REFERRING PROVIDER: Elizabeth Suárez [address] [facility] [address] CHIEF COMPLAINT: Bianca is a 49-year-old male presenting for evaluation of right shoulder pain and limited range of motion. PAIN EVALUATION 02/21/2025 1343 Pain Level: -- limited ROM Pain Location: Shoulder-Right Description: Sharp;Radiating radiates to elbow Frequency: Intermittent Intervention/Comfort measure: Exercise;Imagery;Heat;Cold ;Reposition;Relaxation Comments: PT in the past Right Shoulder Pain and Limited Range of Motion: - Onset: Approximately one year ago. - Initial treatment included physical therapy, which improved range of motion but did not fully restore function; unable to throw a ball. - MRI ordered by previous physician revealed labral tearing; rotator cuff intact. - Referred to current provider for further evaluation. - Current symptoms include stiffness and sharp pain radiating down the arm when reaching behind, such as handing something to daughter in the backseat of a car. - Denies frequent use of pain medication, prefers to tolerate discomfort. PAST MEDICAL HISTORY: PAST MEDICAL HISTORY Diagnosis Date Abnormal finding on MRI of brain 12/11/2024 Possible pituitary adenoma. 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 Elevated antinuclear antibody (JALEEL) level 03/31/2014 Family history of malignant neoplasm of gastrointestinal tract 03/31/2014 Fatty liver 10/28/2024 US: 10/2024 ISABELLA (generalized anxiety disorder) 06/22/2020 GERD without esophagitis 09/26/2018 Gynecomastia, male 12/03/2024 Right breast Hepatic steatosis 10/25/2024 per [facility] Hiatal hernia 03/31/2014 History of COVID-19 09/23/20232021, 09/2023 Hx of colonic polyp 03/31/2014 Needs next colonoscopy 08/2022 Lump 11/16/2019 benign left palm Major depressive disorder with single episode, in partial remission 09/26/2018 Migraine without aura and without status migrainosus, not intractable 09/11/2015 Mood disorder 03/31/2014 Multiple thyroid nodules 02/27/[address] Lazaro 03/2018 Multiple thyroid nodules 02/27/2018 US 03/2020 per radiology no further f/u needed.. All benign Biopsy 03/[address] Lazaro. Benign. Obesity, Class II, BMI 35-39.9 10/21/2022 Obstructive sleep apnea syndrome 01/27/2017 doesnt wear machine Other joint derangement, not elsewhere classified, lower leg 03/25/2013 Primary insomnia 07/28/2020 QT prolongation 04/20/2021 Seen [facility] 04/19/2021: Retsof to be benign and related to anti-depressants. No changes needed. TMJ (temporomandibular joint disorder) 03/31/2014 Right side Type 2 diabetes mellitus without complication, without long-term current use of insulin (HCC) 01/19/2017 Well adult exam 12/17/2014 Last done:11/16/2019 PAST SURGICAL HISTORY: PAST SURGICAL HISTORY Procedure Laterality Date APPENDECTOMY HX 2004 ARTHROTOMY W/MENISCUS REPAIR KNEE Right 04/2021 COLONOSCOPY 06/2012 Dr. Corrigan +polyp, repeat 5 yrs COLONOSCOPY 08/30/2022 repeat in 5 years COLONOSCOPY FLX DX W/COLLJ SPEC WHEN PFRMD 08/16/2017 Colonoscopy, repeat 5 yrs, Dr. Bliss IANDD ABSC SMPL OR SGL Left 03/10/2024 perirectal 2cm x 4 cm PAST SURGICAL HISTORY OF 2009 benign cysts: 1 from head and 2 from neck TONSILLECTOMY HX 1979 SOCIAL HISTORY: Social History Tobacco Use Smoking status: Never Smokeless tobacco: Never Vaping Use Vaping status: Never Used Substance Use Topics Alcohol use: Yes Comment: Rarely Drug use: No ALLERGIES: ALLERGIES Allergen Reactions Topamax [Topiramate] Mental Status Change Unable to remember anything Celexa [Citalopram * Other: See Comments uneffective Effexor [Venlafaxin* Other: See Comments Sexual side affect Reglan [Metoclopram* Unknown Zoloft [Sertraline * Other: See Comments drowsy MEDICATIONS: Current Outpatient Medications on File Prior to Visit Medication Sig metFORMIN (GLUCOPHAGE) 500 mg tablet TAKE 2 TABLETS BY MOUTH TWO TIMES A DAY WITH MEALS. (more content not included)... Normal [facility] 02-12-2025 [facility] Telephone (AGGENS4) -- BIANCA DELAROSA ([id number]) 1975 M Date Time Provider Department 02/12/25 VARSHA VAUGHN AGGENS4 During your visit today, we recorded the following information about you: Brittany Harvey 02/12/2025 9:55 AM Signed Insurance Verification Insurance Company: [employer] Provider Phone #: [phone] Agent: Nitesh Effective Date: 10/09/20 Call Reference #: [id number] EXCLUDED Allergies As of Date: 02/12/2025 Noted Allergy Reaction TOPAMAX (TOPIRAMATE) 02/04/2014 1 - Mental Status Change Comments: Unable to remember anything CELEXA (CITALOPRAM HYDROBROMIDE) 10/22/2014 14 - Other: See Comments Comments: uneffective EFFEXOR (VENLAFAXINE ANALOGUES) 10/22/2014 14 - Other: See Comments Comments: Sexual side affect REGLAN (METOCLOPRAMIDE HCL) 01/24/2007 16 - Unknown ZOLOFT (SERTRALINE HCL) 10/22/2014 14 - Other: See Comments Comments: drowsy Date Reviewed: 02/06/2025 Reviewed by: Sally Baird MA - Fully Assessed Reason for Visit: Patient Update [1234] Cmt: Bariatric Benefits Investigation Prescriptions as of 02/12/2025 - dexmethylphenidate XR (FOCALIN XR) 20 mg biphasic capsule Take 1 capsule by mouth once daily for 30 days. - methylphenidate CD (METADATE CD) 20 mg biphasic capsule Take 1 capsule by mouth once daily for 30 days. - metFORMIN (GLUCOPHAGE) 500 mg tablet Take 2 tablets by mouth two times a day with meals. - DULoxetine (CYMBALTA) 60 mg capsule Take 1 capsule by mouth once daily. - albuterol HFA (PROVENTIL HFA, VENTOLIN HFA) 90 mcg/actuation inhaler Inhale 2 Puffs as instructed three times a day. - OLANZapine (ZYPREXA) 5 mg tablet Take 1 tablet by mouth daily at bedtime. - DULoxetine (CYMBALTA) 30 mg capsule Take 1 capsule by mouth once daily. - Blood-Glucose Sensor (FREESTYLE EVERT 3 SENSOR) agnes USE ONE SENSOR EVERY 14 DAY, IDDM, E11.9 - sucralfate (CARAFATE) 1 gram tablet Take one tab with lunch and before bed. - Fenofibrate 120 mg tab Take 1 tablet by mouth once daily. - esomeprazole (NEXIUM) 40 mg capsule Take 1 capsule by mouth two times a day. - atorvastatin (LIPITOR) 80 mg tablet Take 1 tablet by mouth once daily. - busPIRone (BUSPAR) 15 mg tablet Take one tab by mouth twice a day. - doxepin capsule 10 mg Take 1 capsule by mouth daily at bedtime. - TRESIBA FLEXTOUCH U-100 100 unit/mL (3 mL) injection pen Inject 60 units subcutaneous daily at bedtime. Dispense 60 mL for 90 day supply. - HUMALOG KWIKPEN INSULIN 100 unit/mL Inject subcutaneously 20 units breakfast, 20 units lunch, 20 units dinner plus sliding scale up to 82 units daily. Dispense 75 mL for a 90 day supply. - Insulin Wykoff, Disposable, (DROPLET PEN NEEDLE) 31 gauge x 16 Use 4 PEN NEEDLES to inject MEDICATION subcutaneously daily - zonisamide (ZONEGRAN) 25 mg capsule Take 1 capsule by mouth once daily. - multivitamin tablet Take 1 tablet by mouth once daily. Problem List As Of Date 02/12/2025 Noted Resolved Other joint derangement, not elsewhere classifi*03/25/2013 Agitation [R45.1] 03/31/2014 Allergic rhinitis [J30.9] 03/31/2014 Elevated antinuclear antibody (JALEEL) level [R76.*03/31/2014 Diverticulosis [K57.90] 03/31/2014 Dyslipidemia [E78.5] 03/31/2014 Family history of malignant neoplasm of gastroi*03/31/2014 Hiatal hernia [K44.9] 03/31/2014 Mood disorder (HCC) [F39] 03/31/2014 TMJ (temporomandibular joint disorder) [M26.609]03/31/2014 Hx of colonic polyp [Z86.0100] 03/31/2014 Well adult exam [Z00.00] 12/17/2014 Allergy-induced asthma [J45.909] 05/12/2015 Migraine without aura and without status migrai*09/11/2015 Type 2 diabetes mellitus without complication, *01/19/2017 Obstructive sleep apnea syndrome [G47.33] 01/27/2017 Diabetic eye exam (HCC) [Z01.00, E11.9] 01/27/2017 Multiple thyroid nodules [E04.2] 02/27/2018 Major depressive disorder with single episode, *09/26/2018 GERD without esophagitis [K21.9] 09/26/2018 Lump [XEI5969] 11/16/2019 ISABELLA (generalized anxiety disorder) [F41.1] 06/22/2020 Primary insomnia [F51.01] 07/28/2020 Medication management [Z79.899] 07/28/2020 Joint stiffness of right lower leg [M25.661] 10/21/2020 12/22/2020 Right leg weakness [R29.898] 10/21/2020 12/22/2020 QT prolongation [R94.31] 04/20/2021 Obesity, Class II, BMI 35-39.9 [E66.812] 10/21/2022 Attention deficit disorder (ADD) without hypera*12/07/2022 History of COVID-19 [Z86.16] 09/23/2023 Acute pain of right shoulder [M25.511] 06/12/2024 Fatty liver [K76.0] 10/28/2024 Gynecomastia, male [N62] 12/03/2024 Elevated prolactin level [R79.89] 12/11/2024 Abnormal finding on MRI of brain [R90.89] 12/11/2024 Gynecomastia [N62] 12/20/2024 12/30/2024 Elevated alkaline phosphatase level [R74.8] 12/30/2024 Callus of foot [L84] 12/30/2024 Encounter Status:Closed by BRITT[facility]Y [facility]12/[facility]AGGENS 4[facility] -- BIANCA DELAROSA ([id number]) 1975 M Date Time Provider Department 02/06/25 8:30 AM LISSY BOWMAN4 During your visit today, we recorded the following information about you: Pulse Blood pressure Weight Height 100/minute 125/84 130.6 kg 1.88 m Sally Baird MA 02/06/2025 8:33 AM Signed Patient states he has a lot of sharp, burning pain. He will have reflux up into his mouth when he lays down, increased belching. Last egd was over 10 years ago. STACY Mccormick Marita, MD 02/06/2025 8:33 AM Signed SURGICAL SERVICES HISTORY AND PHYSICAL EXAMINATION SERVICE DATE: 02/06/2025 SERVICE TIME: 8:02 AM PRIMARY CARE PHYSICIAN: Humberto Jackson MD SUBJECTIVE CHIEF COMPLAINT: heartburn HISTORY OF PRESENT ILLNESS: Mr. Delarosa is a 49 year old male with a PMH of ADD, type 2 diabetes (metformin, Humalog), HLD, NAFLD, MIEK, GERD who presents for surgical consultation. Surgical consultation was requested by the patient's referring physician, Dr. Humberto Jackson. A copy of this consultation note will be provided to the requesting physician(s) by way of shared medical record or letter via [place] mail. The patient reports that he has had heartburn/reflux symptoms for many years - at least 10 years for which he has been on Nexium both OTC and prescription. However, in the last few months he has noticed increased malodorous belching and in the last few weeks he has noticed nocturnal regurgitation. And in the last month he has noticed dysphagia when drinking and eating solids at the same meal - happens in greater than 50% of meals. Workkup: - RUQ US 10/2024: hepatic steatosis - CT Chest (09/23/23): unremarkable Social: denies x 3. Rare ETOH - 1 to 2 glasses of wine per month PSHx: appy, tonsillectomy, arthroscopy PAST MEDICAL HISTORY: PAST MEDICAL HISTORY Diagnosis Date Abnormal finding on MRI of brain 12/11/2024 Possible pituitary adenoma. 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 Elevated antinuclear antibody (JALEEL) level 03/31/2014 Family history of malignant neoplasm of gastrointestinal tract 03/31/2014 Fatty liver 10/28/2024 US: 10/2024 ISABELLA (generalized anxiety disorder) 06/22/2020 GERD without esophagitis 09/26/2018 Gynecomastia, male 12/03/2024 Right breast Hepatic steatosis 10/25/2024 per U/S Hiatal hernia 03/31/2014 History of COVID-19 09/23/20232021, 09/2023 Hx of colonic polyp 03/31/2014 Needs next colonoscopy 08/2022 Lump 11/16/2019 benign left palm Major depressive disorder with single episode, in partial remission 09/26/2018 Migraine without aura and without status migrainosus, not intractable 09/11/2015 Mood disorder 03/31/2014 Multiple thyroid nodules 02/27/[address] Lazaro 03/2018 Multiple thyroid nodules 02/27/2018 US 03/2020 per radiology no further f/u needed.. All benign Biopsy 03/[address] Lazaro. Benign. Obesity, Class II, BMI 35-39.9 10/21/2022 Obstructive sleep apnea syndrome 01/27/2017 doesnt wear machine Other joint derangement, not elsewhere classified, lower leg 03/25/2013 Primary insomnia 07/28/2020 QT prolongation 04/20/2021 Seen [facility] 04/19/2021: Retsof to be benign and related to anti-depressants. No changes needed. TMJ (temporomandibular joint disorder) 03/31/2014 Right side Type 2 diabetes mellitus without complication, without long-term current use of insulin (HCC) 01/19/2017 Well adult exam 12/17/2014 Last done:11/16/2019 PAST SURGICAL HISTORY: PAST SURGICAL HISTORY Procedure Laterality Date APPENDECTOMY HX 2004 ARTHROTOMY W/MENISCUS REPAIR KNEE Right 04/2021 COLONOSCOPY 06/2012 Dr. Corrigan +polyp, repeat 5 yrs COLONOSCOPY 08/30/2022 repeat in 5 years COLONOSCOPY FLX DX W/COLLJ SPEC WHEN PFRMD 08/16/2017 Colonoscopy, repeat 5 yrs, Dr. Bliss IANDD ABSC SMPL OR SGL Left 03/10/2024 perirectal 2cm x 4 cm PAST SURGICAL HISTORY OF 2008 benign cysts: 1 from head and 2 from neck TONSILLECTOMY HX 1979 FAMILY HISTORY: FAMILY HISTORY Problem Relation Age of Onset Colon Cancer Father 52 Coronary Artery Disease Father Coronary Artery Disease Mother 60's Hypertension Mother No Known Problems Brother No Known Problems Brother No Known Problems Brother Coronary Artery Disease Maternal Grandmother 60's Stroke Maternal Grand (more content not included)... Normal [facility] CNOVon 01-21-2025 CNOV Office Visit (FAMPWS ) -- BIANCA DELAROSA ([id number]) 1975 M Date Time Provider Department 01/21/25 11:20 AM HUMBERTO JACKSON FAMPWS During your visit today, we recorded the following information about you: Temperature Pulse Respiration Blood pressure 97.8 degrees 88/minute 16/minute 124/88 Weight 129.7 kg Humebrto Jackson MD 01/21/2025 12:26 PM Signed Chief Complaint Patient presents with: Follow Up HPI Bianca Delarosa is a 49 year old male who presents here today for Pneumonia Patient with hx of DM 2, hyperlipidemia, GERD, mood disorder, thyroid nodules, allergies, depression, migraines, insomnia, MIKE as well as those reviewed and addressed below Office note from 12/30/2024 Currently being evaluated for gynecomastia and abnormal imaging of brain, pituitary . Patient has appointment on 01/06/[address] Mckeon, Neurosurgery and Endo on 02/06/2025 Last week on had a URI, fevers and chills. Retsof ok yesterday but feeling winded with activity. SaO2 walking up stairs last night was 87-90% with home pulse ox. Has a dry cough. No ear pain or facial pain. Had a sore throat on and Monday. Has clear nasal drainage. No nausea, vomiting or diarrhea. Some body aches over the weekend. Has been taking some generic dayquel.. Doing ok with the current dose of methylphenidate. Today: patient completed a course of Augmentin 875 mg twice a day for 10 days. Patient has been feeling better. No fevers since last beng seen and cough is much better. Feeling more like his normal self. Patient continues to have GERD and belching more. When he burps his has told him it has a bad odor. Past medical history, appointments, medications, allergies reviewed. Previous Medical History PAST MEDICAL HISTORY Diagnosis Date Abnormal finding on MRI of brain 12/11/2024 Possible pituitary adenoma. 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 Elevated antinuclear antibody (JALEEL) level 03/31/2014 Family history of malignant neoplasm of gastrointestinal tract 03/31/2014 Fatty liver 10/28/2024 US: 10/2024 ISABELLA (generalized anxiety disorder) 06/22/2020 GERD without esophagitis 09/26/2018 Gynecomastia, male 12/03/2024 Right breast Hiatal hernia 03/31/2014 History of COVID-19 09/23/20232021, 09/2023 Hx of colonic polyp 03/31/2014 Needs next colonoscopy 08/2022 Lump 11/16/2019 benign left palm Major depressive disorder with single episode, in partial remission 09/26/2018 Migraine without aura and without status migrainosus, not intractable 09/11/2015 Mood disorder 03/31/2014 Multiple thyroid nodules 02/27/[address] Lazaro 03/2018 Multiple thyroid nodules 02/27/2018 US 03/2020 per radiology no further f/u needed.. All benign Biopsy 03/[address] Lazaro. Benign. Obesity, Class II, BMI 35-39.9 10/21/2022 Obstructive sleep apnea syndrome 01/27/2017 On CPAP Other joint derangement, not elsewhere classified, lower leg 03/25/2013 Primary insomnia 07/28/2020 QT prolongation 04/20/2021 Seen [facility] 04/19/2021: Retsof to be benign and related to anti-depressants. No changes needed. TMJ (temporomandibular joint disorder) 03/31/2014 Right side Type 2 diabetes mellitus without complication, without long-term current use of insulin (HCC) 01/19/2017 Well adult exam 12/17/2014 Last done:11/16/2019 Previous Surgical History PAST SURGICAL HISTORY Procedure Laterality Date APPENDECTOMY HX 2004 ARTHROTOMY W/MENISCUS REPAIR KNEE Right 04/2021 COLONOSCOPY 06/2012 Dr. Corrigan +polyp, repeat 5 yrs COLONOSCOPY 08/30/2022 repeat in 5 years COLONOSCOPY FLX DX W/COLLJ SPEC WHEN PFRMD 08/16/2017 Colonoscopy, repeat 5 yrs, Dr. Bliss PAST SURGICAL HISTORY OF 2009 benign cysts: 1 from head and 2 from neck TONSILLECTOMY AND ADENOIDECTOMY AGE 11/> 1979 TONSILLECTOMY HX Family History FAMILY HISTORY Problem Relation Age of Onset Colon Cancer Father 52 Coronary Artery Disease Father Coronary Artery Disease Mother 60's Hypertension Mother No Known Problems Brother No Known Problems Brother No Known Problems Brother Coronary Artery Disease Maternal Grandmother 60's Stroke Maternal Grandfather Colon Cancer Paternal Uncle 49 Alzheimer's Disease No Family History Prostate Cancer No Family History Breast Cancer No Family H (more content not included)... Normal [facility] ACTH Plas-mCncon 01-11-2025 Corticotropin (P) [Mass/Vol] 35.5 pg/mL Normal 7.2-63.3 [facility] Comment on above: Order Comment: Speci men Type: BLOOD SPECIMEN Ordering Facility: [facility] Address: [address] [place] [address] Result Comment: ACTH Reference Range: 7-10 am: 7.2 - 63.3 pg/mL Performed By: #### 2 141-0 #### [facility] CLIA [id number] [address] [place] [address] [place] INSULIN LIK GR FAC Ion 01-11 INSULIN LIK GR FAC 1 99 ng/mL Normal 67-225 [facility] Comment on above: Order Comment: Speci men Type: BLOOD SPECIMEN Ordering Facility: [facility] Address: [address] [place] [address] Performed By: #### I LGF1 #### [facility] CLIA [id number] [address] [place] [address] [place] Prolactin SerPl-ncon 01-11 Prolactin [Mass/Vol] 39.1 ng/mL High 4.1-25.1 [facility] Comment on above: Order Comment: Speci men Type: BLOOD SPECIMEN Ordering Facility: [facility] Address: [address] [place] [address] Result Comment: Prol actin test is performed using the [employer] Electrochemiluminescence Immunoassay method. Results obtained with different methods or kits cannot be used interchangeably. Performed By: #### 2 842-3 #### [facility] CLIA [id number] [address] [place] [address] [place] CNOVon 01-06-2025 CNOV Office Visit (NEAGCL M) -- BIANCA DELAROSA ([id number]) 1975 M Date Time Provider Department 01/06/25 2:30 PM JA MCKEON NEAGCLM During your visit today, we recorded the following information about you: Pulse Respiration Blood pressure Weight 80/minute 16/minute 126/86 128.2 kg Height 1.88 m Ja Mckeon MD 01/06/2025 3:08 PM Signed NEUROSURGERY CONSULT NOTE Ja Mckeon MD [facility] Date of visit: January 06, 2025 Patient Name: Mr.David Dany Delarosa Date of : 1975 Current Age: [age] year old Sex: male MRN/E# [id number] Last Office Visit: 12/24/2024 Chief Complaint: Patient presents with: New Patient Past Medical/Surgical History: Bianca Delarosa is a 49 year old, right handed male who is referred by Dr. Jackson PCP for neurosurgical evaluation. The patient has a history of elevated JALEEL levels, fatty liver, GERD, migraines, QT prolongation, DM2. Smoking: denies. Alcohol Use: rare HISTORY OF PRESENT ILLNESS : The patient presents to the office today as a new patient for neurosurgical evaluation of pituitary adenoma. He states he was being worked up for a lump in the right breast region which prompted MRI and mammogram. Due to the results of the MRI, his PCP sent him here. He denies any dizziness, vision changes, nausea/vomiting or falls. He is here for image review, evaluation and plan of care. Symptoms: none PREVIOUS CONSERVATIVE TREATMENTS: Sees Endocrinology in February PREVIOUS SURGERY: None Surgical Risk Factors: Smoking status: denies Anticoagulants/antiplatele ts: denies Diabetic: yes, last A1c 12/20/2024 - 10.5 - trending down - working with endocrinology BMI: 36.29 PAIN EVALUATION No data found in the last 1 encounters. PAST MEDICAL HISTORY Diagnosis Date Abnormal finding on MRI of brain 12/11/2024 Possible pituitary adenoma. 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 Elevated antinuclear antibody (JALEEL) level 03/31/2014 Family history of malignant neoplasm of gastrointestinal tract 03/31/2014 Fatty liver 10/28/2024 US: 10/2024 ISABELLA (generalized anxiety disorder) 06/22/2020 GERD without esophagitis 09/26/2018 Gynecomastia, male 12/03/2024 Right breast Hiatal hernia 03/31/2014 History of COVID-19 09/23/20232021, 09/2023 Hx of colonic polyp 03/31/2014 Needs next colonoscopy 08/2022 Lump 11/16/2019 benign left palm Major depressive disorder with single episode, in partial remission 09/26/2018 Migraine without aura and without status migrainosus, not intractable 09/11/2015 Mood disorder 03/31/2014 Multiple thyroid nodules 02/27/[address] Lazaro 03/2018 Multiple thyroid nodules 02/27/2018 US 03/2020 per radiology no further f/u needed.. All benign Biopsy 03/[address] Lazaro. Benign. Obesity, Class II, BMI 35-39.9 10/21/2022 Obstructive sleep apnea syndrome 01/27/2017 On CPAP Other joint derangement, not elsewhere classified, lower leg 03/25/2013 Primary insomnia 07/28/2020 QT prolongation 04/20/2021 Seen [facility] 04/19/2021: Retsof to be benign and related to anti-depressants. No changes needed. TMJ (temporomandibular joint disorder) 03/31/2014 Right side Type 2 diabetes mellitus without complication, without long-term current use of insulin ([facility]) 01/19/2017 Well adult exam 12/17/2014 Last done:11/16/2019 PAST SURGICAL HISTORY Procedure Laterality Date APPENDECTOMY HX 2004 ARTHROTOMY W/MENISCUS REPAIR KNEE Right 04/2021 COLONOSCOPY 06/2012 Dr. Corrigan +polyp, repeat 5 yrs COLONOSCOPY 08/30/2022 repeat in 5 years COLONOSCOPY FLX DX W/COLLJ SPEC WHEN PFRMD 08/16/2017 Colonoscopy, repeat 5 yrs, Dr. Bliss PAST SURGICAL HISTORY OF 2009 benign cysts: 1 from head and 2 from neck TONSILLECTOMY AND ADENOIDECTOMY AGE 11/> 1979 TONSILLECTOMY HX FAMILY HISTORY Problem Relation Age of Onset Colon Cancer Father 52 Coronary Artery Disease Father Coronary Artery Disease Mother 60's Hypertension Mother No Known Problems Brother No Known Problems Brother No Known Problems Brother Coronary Artery Disease Maternal Grandmother 60's Stroke Maternal Grandfather Colon Cancer Paternal Uncle 49 Alzheimer's Disease No Family History Prostate Cancer No Family History Breast Cancer No Family History Hyperlipidemia No Family History Kidney Dise (more content not included)... Normal [facility] MRI SHOULDER WO IVCON RTon 0 01-04-2025 MRI SHOULDER WO IVCON RT * * *Final Report* * * DATE OF EXAM: Jan 04 2025 9:08AM [facility] 0240 - MRI SHOULDER WO IVCON RT / PROCEDURE REASON: M25.511-Acute pain of right shoulder * * * * Physician Interpretation * * * * EXAMINATION: MRI SHOULDER WO IVCON RT HISTORY: Acute pain of right shoulder TECHNIQUE: Routine non-contrast MRI of the shoulder. MQ: [id number]_1A COMPARISON: None RESULT: TENDONS: Rotator cuff tendons: -Supraspinatus: Intact with mild tendinosis -Infraspinatus: Intact tendon -Subscapularis: Intact tendon -Teres Minor: Intact tendon Biceps (Long head) Tendon: Intact , with normal course MUSCLES: Rotator cuff muscles: -Supraspinatus: Preserved bulk and no fatty changes. -Infraspinatus: Preserved bulk and no fatty changes. -Subscapularis: Preserved bulk and no fatty changes. -Teres Minor: Preserved bulk and no fatty changes. Other muscles: Preserved signal and bulk in the deltoid. JOINTS: Glenohumeral Joint: -Labrum: Glenoid labrum appears to be intact. -Cartilage: Normal -Joint Fluid: No effusion . No synovitis. Acromioclavicular Joint: Normal BONES AND MARROW: No evidence of fracture or suspicious bone marrow replacing process OTHER: Subdeltoid/Subacromial Bursa: Normal Other: Mild indistinctness at the rotator cuff interval and slight thickening of the inferior joint capsule. These findings can be seen with adhesive capsulitis. Localizer images: No additional findings. IMPRESSION: Indirect findings suggesting adhesive capsulitis. Please correlate clinically Mild supraspinatus tendinosis Franchise Specialist[facility] Transcribe Date/Time: Jan 07 2025 1:34P Dictated by : DAT FERNANDES MD This examination was interpreted and the report reviewed and electronically signed by: DAT FERNANDES MD on Jan 07 2025 1:38PM EST [id number] [facility] 12-30-2024 [facility] Office Visit (FAMWS ) -- WASHINGTONBIANCA ([id number]) 1975 M Date Time Provider Department 12/30/24 8:00 AM HUMBERTO JACKSONAMOR During your visit today, we recorded the following information about you: Pulse Respiration Blood pressure Weight 88/minute 18/minute 118/74 127.5 kg Height 1.88 m Humberto Jackson MD 12/30/2024 4:27 PM Addendum Chief Complaint Patient presents with: Physical HPI Bianca Delarosa is a 49 year old male who presents here today for Physical Patient with hx of DM 2, hyperlipidemia, GERD, mood disorder, thyroid nodules, allergies, depression, migraines, insomnia, MIKE as well as those reviewed and addressed below Currently being evaluated for gynecomastia and abnormal imaging of brain, pituitary . Patient has appointment on 01/06/[address] Mckeon, Neurosurgery and Endo on 02/06/2025 Last week on had a URI, fevers and chills. Retsof ok yesterday but feeling winded with activity. SaO2 walking up stairs last night was 87-90% with home pulse ox. Has a dry cough. No ear pain or facial pain. Had a sore throat on and Monday. Has clear nasal drainage. No nausea, vomiting or diarrhea. Some body aches over the weekend. Has been taking some generic dayquel.. Doing ok with the current dose of methylphenidate. Past medical history, appointments, medications, allergies reviewed. 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 12/07/2022 Substance agreement signed 12/2022, Tox screen done 12/2022 Current use of proton pump inhibitor 09/26/2018 Diabetic eye exam ([facility]) 01/27/2017 Last eye exam: 03/05/2019 Diverticulosis 03/31/2014 Dyslipidemia 03/31/2014 Low HDL, High Trigs Elevated antinuclear antibody (JALEEL) level 03/31/2014 Family history of malignant neoplasm of gastrointestinal tract 03/31/2014 Fatty liver 10/28/2024 US: 10/2024 ISABELLA (generalized anxiety disorder) 06/22/2020 GERD without esophagitis 09/26/2018 Hiatal hernia 03/31/2014 History of COVID-19 09/23/20232021, 09/2023 Hx of colonic polyp 03/31/2014 Needs next colonoscopy 08/2022 Lump 11/16/2019 benign left palm Major depressive disorder with single episode, in partial remission ([facility]) 09/26/2018 Migraine without aura and without status migrainosus, not intractable 09/11/2015 Mood disorder ([facility]) 03/31/2014 Multiple thyroid nodules 02/27/[address] Lazaro 03/2018 Multiple thyroid nodules 02/27/2018 US 03/2020 per radiology no further f/u needed.. All benign Biopsy 03/[address] Lazaro. Benign. Obesity, Class II, BMI 35-39.9 10/21/2022 Obstructive sleep apnea syndrome 01/27/2017 On CPAP Other joint derangement, not elsewhere classified, lower leg 03/25/2013 Primary insomnia 07/28/2020 QT prolongation 04/20/2021 Seen [facility] 04/19/2021: Retsof to be benign and related to anti-depressants. No changes needed. TMJ (temporomandibular joint disorder) 03/31/2014 Right side Type 2 diabetes mellitus without complication, without long-term current use of insulin (HCC) 01/19/2017 Well adult exam 12/17/2014 Last done:11/16/2019 Previous Surgical History PAST SURGICAL HISTORY Procedure Laterality Date APPENDECTOMY HX 2004 ARTHROTOMY W/MENISCUS REPAIR KNEE Right 04/2021 COLONOSCOPY 06/2012 Dr. Corrigan +polyp, repeat 5 yrs COLONOSCOPY 08/30/2022 repeat in 5 years COLONOSCOPY FLX DX W/COLLJ SPEC WHEN PFRMD 08/16/2017 Colonoscopy, repeat 5 yrs, Dr. Bliss PAST SURGICAL HISTORY OF 2008 benign cysts: 1 from head and 2 from neck TONSILLECTOMY AND ADENOIDECTOMY AGE 11/> 1979 TONSILLECTOMY HX Family History FAMILY HISTORY Problem Relation Age of Onset Colon Cancer Father 52 Coronary Artery Disease Father Coronary Artery Disease Mother 60's Hypertension Mother No Known Problems Brother No Known Problems Brother No Known Problems Brother Coronary Artery Disease Maternal Grandmother 60's Stroke Maternal Grandfather Colon Cancer Paternal Uncle 49 Alzheimer's Disease No Family History Prostate Cancer No Family History Breast Cancer No Family History Hyperlipidemia No Family History Kidney Disease No Family History Seizures No Family History Thyroid No Family History No Ocular Disease No Family History Patient Allergies ALLERGIES Allergen Reactions Topamax [Topiramate] Mental Status Change Unable to remember anything Celexa [Citalopram * Other: See Comments uneffective Effexor [Venlafaxin* Other: See Comments Sexual side affect Reglan [Metoclopram* Unknown Zoloft [Sertraline * Other: See Comments drowsy Current Medications Current Outpatient Medications on (more content not included)... Normal [facility] XR CHEST 2V FRONTAL/LATon XR CHEST 2V FRONTAL/LAT * * *Final Report* * * DATE OF EXAM: Dec 30 2024 9:26AM WOX [id number] - XR CHEST 2V FRONTAL/LAT / PROCEDURE REASON: Abnormal lung sounds * * * * Physician Interpretation * * * * EXAMINATION: CHEST RADIOGRAPH (2 VIEW FRONTAL and LATERAL) CLINICAL HISTORY: Abnormal lung sounds MQ: [id number] EXAM DATE/TIME: 12/30/2024 9:26 AM COMPARISON: Chest x-ray on 10/15/2021 RESULT: Lines, tubes, and devices: None. Lungs and pleura: Slightly small lung volume. No consolidation. No lung mass. No pleural effusion. No pneumothorax. Cardiomediastinal silhouette: Stable cardiomediastinal silhouette. Bones and soft tissues: Unremarkable. IMPRESSION: No acute radiographic abnormality. Franchise Specialist: GORGE Transcribe Date/Time: Dec 30 2024 9:28A Dictated by : DELMI NOGUEIRA MD This examination was interpreted and the report reviewed and electronically signed by: DELMI NOGUEIRA MD on Dec 30 2024 9:29AM EST [id number] Normal [facility] XR Chest PA and Lateralon IMPRESSION: No acute radiographic abnormality. Franchise Specialist: GORGE Transcribe Date/Time: Dec 30 2024 9:28A Dictated by : DELMI NOGUEIRA MD This examination was interpreted and the report reviewed and electronically signed by: DELMI NOGUEIRA MD on Dec 30 2024 9:29AM EST DIVISION OF RADIOLOGY * * *Final Report* * * DATE OF EXAM: Dec 30 2024 9:26AM WOX [id number] - XR CHEST 2V FRONTAL/LAT / PROCEDURE REASON: Abnormal lung sounds * * * * Physician Interpretation * * * * EXAMINATION: CHEST RADIOGRAPH (2 VIEW FRONTAL & LATERAL) CLINICAL HISTORY: Abnormal lung sounds MQ: XC2_6 EXAM DATE/TIME: 12/30/2024 9:26 AM COMPARISON: Chest x-ray on 10/15/2021 RESULT: Lines, tubes, and devices: None. Lungs and pleura: Slightly small lung volume. No consolidation. No lung mass. No pleural effusion. No pneumothorax. Cardiomediastinal silhouette: Stable cardiomediastinal silhouette. Bones and soft tissues: Unremarkable. DIVISION OF RADIOLOGY Provider, [facility] - 12/30/2024 * * *Final Report* * * DATE OF EXAM: Dec 30 2024 9:26AM WOX [id number] - XR CHEST 2V FRONTAL/LAT / PROCEDURE REASON: Abnormal lung sounds * * * * Physician Interpretation * * * * EXAMINATION: CHEST RADIOGRAPH (2 VIEW FRONTAL & LATERAL) CLINICAL HISTORY: Abnormal lung sounds MQ: XC2_6 EXAM DATE/TIME: 12/30/2024 9:26 AM COMPARISON: Chest x-ray on 10/15/2021 RESULT: Lines, tubes, and devices: None. Lungs and pleura: Slightly small lung volume. No consolidation. No lung mass. No pleural effusion. No pneumothorax. Cardiomediastinal silhouette: Stable cardiomediastinal silhouette. Bones and soft tissues: Unremarkable. IMPRESSION IMPRESSION: No acute radiographic abnormality. Franchise Specialist: PSCB Transcribe Date/Time: Dec 30 2024 9:28A Dictated by : DELMI NOGUEIRA MD This examination was interpreted and the report reviewed and electronically signed by: DELMI NOGUEIRA MD on Dec 30 2024 9:29AM EST [facility] Radiology Study observation (narrative) [facility] XR Chest PA and LateralOrder ed By: Ccjulito Provider on 12-30-[address] [facility] 12-24-2024 [facility] Telephone (NEAGCLM) -- BIANCA DELAROSA ([id number]) 1975 M Date Time Provider Department 12/24/24 JA MCKEON NEAGC During your visit today, we recorded the following information about you: Allergies As of Date: 12/24/2024 Noted Allergy Reaction TOPAMAX (TOPIRAMATE) 02/04/2014 1 - Mental Status Change Comments: Unable to remember anything CELEXA (CITALOPRAM HYDROBROMIDE) 10/22/2014 14 - Other: See Comments Comments: uneffective EFFEXOR (VENLAFAXINE ANALOGUES) 10/22/2014 14 - Other: See Comments Comments: Sexual side affect REGLAN (METOCLOPRAMIDE HCL) 01/24/2007 16 - Unknown ZOLOFT (SERTRALINE HCL) 10/22/2014 14 - Other: See Comments Comments: drowsy Date Reviewed: 12/20/2024 Reviewed by: Humberto Jackson MD - Fully Assessed Prescriptions as of 12/24/2024 - OLANZapine (ZYPREXA) 5 mg tablet Take 1 tablet by mouth daily at bedtime. - methylphenidate LA (RITALIN LA) 20 mg biphasic capsule Take 1 capsule by mouth once daily for 30 days. - DULoxetine (CYMBALTA) 30 mg capsule Take 1 capsule by mouth once daily. - methylphenidate CD (METADATE CD) 20 mg biphasic capsule Take 1 capsule by mouth once daily for 30 days. - Blood-Glucose Sensor (FREESTYLE EVERT 3 SENSOR) agnes USE ONE SENSOR EVERY 14 DAY, IDDM, E11.9 - sucralfate (CARAFATE) 1 gram tablet Take one tab with lunch and before bed. - Fenofibrate 120 mg tab Take 1 tablet by mouth once daily. - esomeprazole (NEXIUM) 40 mg capsule Take 1 capsule by mouth two times a day. - atorvastatin (LIPITOR) 80 mg tablet Take 1 tablet by mouth once daily. - busPIRone (BUSPAR) 15 mg tablet Take one tab by mouth twice a day. - doxepin capsule 10 mg Take 1 capsule by mouth daily at bedtime. - DULoxetine (CYMBALTA) 60 mg capsule Take 1 capsule by mouth once daily. - TRESIBA FLEXTOUCH U-100 100 unit/mL (3 mL) injection pen Inject 60 units subcutaneous daily at bedtime. Dispense 60 mL for 90 day supply. - HUMALOG KWIKPEN INSULIN 100 unit/mL Inject subcutaneously 20 units breakfast, 20 units lunch, 20 units dinner plus sliding scale up to 82 units daily. Dispense 75 mL for a 90 day supply. - Insulin Wykoff, Disposable, (DROPLET PEN NEEDLE) 31 gauge x 12/22 Use 4 PEN NEEDLES to inject MEDICATION subcutaneously daily - metFORMIN (GLUCOPHAGE) 500 mg tablet Take 2 tablets by mouth two times a day with meals. - zonisamide (ZONEGRAN) 25 mg capsule Take 1 capsule by mouth once daily. - multivitamin tablet Take 1 tablet by mouth once daily. Problem List As Of Date 12/24/2024 Noted Resolved Other joint derangement, not elsewhere classifi*03/25/2013 Agitation [R45.1] 03/31/2014 Allergic rhinitis [J30.9] 03/31/2014 Elevated antinuclear antibody (JALEEL) level [R76.*03/31/2014 Diverticulosis [K57.90] 03/31/2014 Dyslipidemia [E78.5] 03/31/2014 Family history of malignant neoplasm of gastroi*03/31/2014 Hiatal hernia [K44.9] 03/31/2014 Mood disorder (HCC) [F39] 03/31/2014 TMJ (temporomandibular joint disorder) [M26.609]03/31/2014 Hx of colonic polyp [Z86.0100] 03/31/2014 Well adult exam [Z00.00] 12/17/2014 Allergy-induced asthma [J45.909] 05/12/2015 Migraine without aura and without status migrai*09/11/2015 Type 2 diabetes mellitus without complication, *01/19/2017 Obstructive sleep apnea syndrome [G47.33] 01/27/2017 Diabetic eye exam (HCC) [Z01.00, E11.9] 01/27/2017 Multiple thyroid nodules [E04.2] 02/27/2018 Major depressive disorder with single episode, *09/26/2018 GERD without esophagitis [K21.9] 09/26/2018 Lump [[id number]] 11/16/2019 ISABELLA (generalized anxiety disorder) [F41.1] 06/22/2020 Primary insomnia [F51.01] 07/28/2020 Medication management [Z79.899] 07/28/2020 Joint stiffness of right lower leg [M25.661] 10/21/2020 12/22/2020 Right leg weakness [R29.898] 10/21/2020 12/22/2020 QT prolongation [R94.31] 04/20/2021 Obesity, Class II, BMI 35-39.9 [E66.812] 10/21/2022 Attention deficit disorder (ADD) without hypera*12/07/2022 History of COVID-19 [Z86.16] 09/23/2023 Acute pain of right shoulder [M25.511] 06/12/2024 Fatty liver [K76.0] 10/28/2024 Gynecomastia, male [N62] 12/03/2024 Elevated prolactin level [R79.89] 12/11/2024 Abnormal finding on MRI of brain [R90.89] 12/11/2024 Gynecomastia [N62] 12/20/2024 Encounter Status:Closed by AZALEA PENALOZA on 12/24/24 [facility] CNPN Telephone (NEAGCLM) -- BIANCA DELAROSA ([id number]) 1975 M Date Time Provider Department 12/24/24 JA MCKEON NEAGCLM During your visit today, we recorded the following information about you: Azalea Penaloza 12/24/2024 2:02 PM Signed I spoke to patient confirming we can not do video appts for new patients. Spouse understood and confirmed day and time of appt Allergies As of Date: 12/24/2024 Noted Allergy Reaction TOPAMAX (TOPIRAMATE) 02/04/2014 1 - Mental Status Change Comments: Unable to remember anything CELEXA (CITALOPRAM HYDROBROMIDE) 10/22/2014 14 - Other: See Comments Comments: uneffective EFFEXOR (VENLAFAXINE ANALOGUES) 10/22/2014 14 - Other: See Comments Comments: Sexual side affect REGLAN (METOCLOPRAMIDE HCL) 01/24/2007 16 - Unknown ZOLOFT (SERTRALINE HCL) 10/22/2014 14 - Other: See Comments Comments: drowsy Date Reviewed: 12/20/2024 Reviewed by: Humberto Jackson MD - Fully Assessed Prescriptions as of 12/24/2024 - OLANZapine (ZYPREXA) 5 mg tablet Take 1 tablet by mouth daily at bedtime. - methylphenidate LA (RITALIN LA) 20 mg biphasic capsule Take 1 capsule by mouth once daily for 30 days. - DULoxetine (CYMBALTA) 30 mg capsule Take 1 capsule by mouth once daily. - methylphenidate CD (METADATE CD) 20 mg biphasic capsule Take 1 capsule by mouth once daily for 30 days. - Blood-Glucose Sensor (FREESTYLE EVERT 3 SENSOR) agnes USE ONE SENSOR EVERY 14 DAY, IDDM, E11.9 - sucralfate (CARAFATE) 1 gram tablet Take one tab with lunch and before bed. - Fenofibrate 120 mg tab Take 1 tablet by mouth once daily. - esomeprazole (NEXIUM) 40 mg capsule Take 1 capsule by mouth two times a day. - atorvastatin (LIPITOR) 80 mg tablet Take 1 tablet by mouth once daily. - busPIRone (BUSPAR) 15 mg tablet Take one tab by mouth twice a day. - doxepin capsule 10 mg Take 1 capsule by mouth daily at bedtime. - DULoxetine (CYMBALTA) 60 mg capsule Take 1 capsule by mouth once daily. - TRESIBA FLEXTOUCH U-100 100 unit/mL (3 mL) injection pen Inject 60 units subcutaneous daily at bedtime. Dispense 60 mL for 90 day supply. - HUMALOG KWIKPEN INSULIN 100 unit/mL Inject subcutaneously 20 units breakfast, 20 units lunch, 20 units dinner plus sliding scale up to 82 units daily. Dispense 75 mL for a 90 day supply. - Insulin Wykoff, Disposable, (DROPLET PEN NEEDLE) 31 gauge x 3/16 Use 4 PEN NEEDLES to inject MEDICATION subcutaneously daily - metFORMIN (GLUCOPHAGE) 500 mg tablet Take 2 tablets by mouth two times a day with meals. - zonisamide (ZONEGRAN) 25 mg capsule Take 1 capsule by mouth once daily. - multivitamin tablet Take 1 tablet by mouth once daily. Problem List As Of Date 12/24/2024 Noted Resolved Other joint derangement, not elsewhere classifi*03/25/2013 Agitation [R45.1] 03/31/2014 Allergic rhinitis [J30.9] 03/31/2014 Elevated antinuclear antibody (JALEEL) level [R76.*03/31/2014 Diverticulosis [K57.90] 03/31/2014 Dyslipidemia [E78.5] 03/31/2014 Family history of malignant neoplasm of gastroi*03/31/2014 Hiatal hernia [K44.9] 03/31/2014 Mood disorder (HCC) [F39] 03/31/2014 TMJ (temporomandibular joint disorder) [M26.609]03/31/2014 Hx of colonic polyp [Z86.0100] 03/31/2014 Well adult exam [Z00.00] 12/17/2014 Allergy-induced asthma [J45.909] 05/12/2015 Migraine without aura and without status migrai*09/11/2015 Type 2 diabetes mellitus without complication, *01/19/2017 Obstructive sleep apnea syndrome [G47.33] 01/27/2017 Diabetic eye exam (HCC) [Z01.00, E11.9] 01/27/2017 Multiple thyroid nodules [E04.2] 02/27/2018 Major depressive disorder with single episode, *09/26/2018 GERD without esophagitis [K21.9] 09/26/2018 Lump [[id number]] 11/16/2019 ISABELLA (generalized anxiety disorder) [F41.1] 06/22/2020 Primary insomnia [F51.01] 07/28/2020 Medication management [Z79.899] 07/28/2020 Joint stiffness of right lower leg [M25.661] 10/21/2020 12/22/2020 Right leg weakness [R29.898] 10/21/2020 12/22/2020 QT prolongation [R94.31] 04/20/2021 Obesity, Class II, BMI 35-39.9 [E66.812] 10/21/2022 Attention deficit disorder (ADD) without hypera*12/07/2022 History of COVID-19 [Z86.16] 09/23/2023 Acute pain of right shoulder [M25.511] 06/12/2024 Fatty liver [K76.0] 10/28/2024 Gynecomastia, male [N62] 12/03/2024 Elevated prolactin level [R79.89] 12/11/2024 Abnormal finding on MRI of brain [R90.89] 12/11/2024 Gynecomastia [N62] 12/20/2024 Encounter Status:Closed by AZALEA PENALOZA on 12/24/24 [facility] Santos 12-23-2024 [facility] Telephone (FAMPWS) -- BIANCA DELAROSA ([id number]) 1975 M Date Time Provider Department 12/23/24 HUMBERTO JACKSON During your visit today, we recorded the following information about you: Corazon NdiayeMADELINE 12/23/2024 2:48 PM Signed Patient Driss romero got a call from Dr Younger office he does not see patients with pituitary. Assisted with transfer to equipment scheduler, to assist with trying to find Dr that will see pituitary adenoma. Allergies As of Date: 12/23/2024 Noted Allergy Reaction TOPAMAX (TOPIRAMATE) 02/04/2014 1 - Mental Status Change Comments: Unable to remember anything CELEXA (CITALOPRAM HYDROBROMIDE) 10/22/2014 14 - Other: See Comments Comments: uneffective EFFEXOR (VENLAFAXINE ANALOGUES) 10/22/2014 14 - Other: See Comments Comments: Sexual side affect REGLAN (METOCLOPRAMIDE HCL) 01/24/2007 16 - Unknown ZOLOFT (SERTRALINE HCL) 10/22/2014 14 - Other: See Comments Comments: drowsy Date Reviewed: 12/20/2024 Reviewed by: Humberto Jackson MD - Fully Assessed Reason for Visit: Appointment [186] Prescriptions as of 12/23/2024 - OLANZapine (ZYPREXA) 5 mg tablet Take 1 tablet by mouth daily at bedtime. - methylphenidate LA (RITALIN LA) 20 mg biphasic capsule Take 1 capsule by mouth once daily for 30 days. - DULoxetine (CYMBALTA) 30 mg capsule Take 1 capsule by mouth once daily. - methylphenidate CD (METADATE CD) 20 mg biphasic capsule Take 1 capsule by mouth once daily for 30 days. - Blood-Glucose Sensor (FREESTYLE EVERT 3 SENSOR) agnes USE ONE SENSOR EVERY 14 DAY, IDDM, E11.9 - sucralfate (CARAFATE) 1 gram tablet Take one tab with lunch and before bed. - Fenofibrate 120 mg tab Take 1 tablet by mouth once daily. - esomeprazole (NEXIUM) 40 mg capsule Take 1 capsule by mouth two times a day. - atorvastatin (LIPITOR) 80 mg tablet Take 1 tablet by mouth once daily. - busPIRone (BUSPAR) 15 mg tablet Take one tab by mouth twice a day. - doxepin capsule 10 mg Take 1 capsule by mouth daily at bedtime. - DULoxetine (CYMBALTA) 60 mg capsule Take 1 capsule by mouth once daily. - TRESIBA FLEXTOUCH U-100 100 unit/mL (3 mL) injection pen Inject 60 units subcutaneous daily at bedtime. Dispense 60 mL for 90 day supply. - HUMALOG KWIKPEN INSULIN 100 unit/mL Inject subcutaneously 20 units breakfast, 20 units lunch, 20 units dinner plus sliding scale up to 82 units daily. Dispense 75 mL for a 90 day supply. - Insulin Wykoff, Disposable, (DROPLET PEN NEEDLE) 31 gauge x /16 Use 4 PEN NEEDLES to inject MEDICATION subcutaneously daily - metFORMIN (GLUCOPHAGE) 500 mg tablet Take 2 tablets by mouth two times a day with meals. - zonisamide (ZONEGRAN) 25 mg capsule Take 1 capsule by mouth once daily. - multivitamin tablet Take 1 tablet by mouth once daily. Problem List As Of Date 12/23/2024 Noted Resolved Other joint derangement, not elsewhere classifi*03/25/2013 Agitation [R45.1] 03/31/2014 Allergic rhinitis [J30.9] 03/31/2014 Elevated antinuclear antibody (JALEEL) level [R76.*03/31/2014 Diverticulosis [K57.90] 03/31/2014 Dyslipidemia [E78.5] 03/31/2014 Family history of malignant neoplasm of gastroi*03/31/2014 Hiatal hernia [K44.9] 03/31/2014 Mood disorder (HCC) [F39] 03/31/2014 TMJ (temporomandibular joint disorder) [M26.609]03/31/2014 Hx of colonic polyp [Z86.0100] 03/31/2014 Well adult exam [Z00.00] 12/17/2014 Allergy-induced asthma [J45.909] 05/12/2015 Migraine without aura and without status migrai*09/11/2015 Type 2 diabetes mellitus without complication, *01/19/2017 Obstructive sleep apnea syndrome [G47.33] 01/27/2017 Diabetic eye exam (HCC) [Z01.00, E11.9] 01/27/2017 Multiple thyroid nodules [E04.2] 02/27/2018 Major depressive disorder with single episode, *09/26/2018 GERD without esophagitis [K21.9] 09/26/2018 Lump [ALA3454] 11/16/2019 ISABELLA (generalized anxiety disorder) [F41.1] 06/22/2020 Primary insomnia [F51.01] 07/28/2020 Medication management [Z79.899] 07/28/2020 Joint stiffness of right lower leg [M25.661] 10/21/2020 12/22/2020 Right leg weakness [R29.898] 10/21/2020 12/22/2020 QT prolongation [R94.31] 04/20/2021 Obesity, Class II, BMI 35-39.9 [E66.812] 10/21/2022 Attention deficit disorder (ADD) without hypera*12/07/2022 History of COVID-19 [Z86.16] 09/23/2023 Acute pain of right shoulder [M25.511] 06/12/2024 Fatty liver [K76.0] 10/28/2024 Gynecomastia, male [N62] 12/03/2024 Elevated prolactin level [R79.89] 12/11/2024 Abnormal finding on MRI of brain [R90.89] 12/11/2024 Gynecomastia [N62] 12/20/2024 Encounter Status:Closed by CORAZON NDIAYE on 12/23/24 Normal [facility] ALKALINE PHOSPHATASE ISOENZY MES (P)on 12-20-2024 ALK PHOS BONE % 31.1 % Normal 10.7-68.3 [facility] Comment on above: Order Comment: Speci men Type: BLOOD SPECIMENOrdering Facility: [facility] Address: [address] [place] [address] Performed By: #### A LKISOP ####[facility] [id number] [place] [address] [place] ALK PHOS LIVER % 51.1 % Normal 26.0-86.2 [facility] Comment on above: Order Comment: Speci men Type: BLOOD SPECIMENOrdering Facility: [facility] Address: [address] [place] [address] Performed By: #### A LKISOP ####[facility] [id number] [address] [place] BONE FRACTION 52.6 U/L Normal 12.9-52.6 [facility] Comment on above: Order Comment: Speci men Type: BLOOD SPECIMENOrdering Facility: [facility] Address: [address] [place] [address] Performed By: #### A LKISOP ####[facility] LABIA [id number] [place] [address] [place] INTESTINE FRACTION 30.1 U/L High 0.0-16.3 [facility] Comment on above: Order Comment: Speci men Type: BLOOD SPECIMENOrdering Facility: [facility] Address: [address] [place] [address] Performed By: #### A LKISOP ####[facility]IA [id number] [address] [place] LIVER FRACTION 86.4 U/L High 16.0-69.3 [facility] Comment on above: Order Comment: Speci men Type: BLOOD SPECIMENOrdering Facility: [facility] Address: [address] [place] [address] Performed By: #### A LKISOP ####[facility] LABIA [id number] [place] [id number] [place] Neutrophils/100 WBC (Bld) 17.8 % Normal 0.0-24.2 [facility] Comment on above: Order Comment: Speci men Type: BLOOD SPECIMENOrdering Facility: [facility] Address: [address] [place] [address] Performed By: #### A LKISOP ####[facility]IA [id number] [place] [id number] [place] ALP SerPl-cCncon 12-20-2024 ALP [Catalytic activity/Vol] 169 U/L High 38-113 [facility] Comment on above: Order Comment: Speci men Type: BLOOD SPECIMEN [facility] Address: [address] [place] [address] Performed By: #### 6 768-6, 2132-06, #### [facility] CLIA [id number] [address] [place] [address] [place] CBC W Auto Differential pane l (Bld)on 12-20-2024 Basophils (Bld) [#/Vol] 0.06 10*3/uL Normal <0.11 [facility] Comment on above: Order Comment: Speci men Type: BLOOD SPECIMEN [facility] Address: [address] [place] [address] Performed By: #### 6 768-6, 2132-06, #### [facility] CLIA [id number] [address] [place] [address] [place] Basophils/100 WBC (Bld) 0.8 % Normal [facility] Comment on above: Order Comment: Speci men Type: BLOOD SPECIMEN [facility] Address: [address] [place] [address] Performed By: #### 6 768-6, 2132-06, #### [facility] CLIA [id number] [address] [place] [address] [place] Differential cell count method Nom (Bld) Auto Normal [facility] Comment on above: Order Comment: Speci men Type: BLOOD SPECIMEN [facility] Address: [address] [place] [address] Performed By: #### 6 768-6, 2132-06, #### [facility] CLIA [id number] [address] [place] [address] [place] Eosinophils (Bld) [#/Vol] 0.20 10*3/uL Normal <0.46 [facility] Comment on above: Order Comment: Speci men Type: BLOOD SPECIMEN [facility] Address: [address] [place] [address] Performed By: #### 6 768-6, 2132-06, #### [facility] CLIA [id number] [address] [place] [address] [place] Eosinophils/100 WBC (Bld) 2.5 % Normal [facility] Comment on above: Order Comment: Speci men Type: BLOOD SPECIMEN [facility] Address: [address] [place] [address] Performed By: #### 6 768-6, 2132-06, #### [facility] CLIA [id number] [address] [place] [address] [place] Erythrocyte distribution width (RBC) [Ratio] 12.2 % Normal 11.5-15.0 [facility] Comment on above: Order Comment: Speci men Type: BLOOD SPECIMEN [facility] Address: [address] [place] [address] Performed By: #### 6 768-6, 2132-06, #### [facility] CLIA [id number] [address] [place] [address] [place] Hematocrit (Bld) [Volume fraction] 37.3 % Low 39.0-51.0 [facility] Comment on above: Order Comment: Speci men Type: BLOOD SPECIMEN [facility] Address: [address] [place] [address] Performed By: #### 6 768-6, 2132-06, #### [facility] CLIA [id number] [address] [place] [address] [place] Hemoglobin (Bld) [Mass/Vol] 12.3 g/dL Low 13.0-17.0 [facility] Comment on above: Order Comment: Speci men Type: BLOOD SPECIMEN [facility] Address: [address] [place] [address] Performed By: #### 6 768-6, 2132-06, #### [facility] CLIA [id number] [address] [place] [address] [place] Immature granulocytes (Bld) [#/Vol] 0.03 10*3/uL Normal <0.10 [facility] Comment on above: Order Comment: Speci men Type: BLOOD SPECIMEN [facility] Address: [address] [place] [address] Performed By: #### 6 768-6, 2132-06, #### [facility] CLIA [id number] [address] [place] [address] [place] Immature granulocytes/100 WBC (Bld) 0.4 % Normal [facility] Comment on above: Order Comment: Speci men Type: BLOOD SPECIMEN [facility] Address: [address] [place] [address] Performed By: #### 6 768-6, 2132-06, #### [facility] CLIA [id number] [address] [place] [address] [place] Lymphocytes (Bld) [#/Vol] 2.65 10*3/uL Normal 1.00-4.00 [facility] Comment on above: Order Comment: Speci men Type: BLOOD SPECIMEN [facility] Address: [address] [place] [address] Performed By: #### 6 768-6, 2132-06, #### [facility] CLIA [id number] [address] [place] [address] [place] Lymphocytes/100 WBC (Bld) 33.2 % Normal [facility] Comment on above: Order Comment: Speci men Type: BLOOD SPECIMEN [facility] Address: [address] [place] [address] Performed By: #### 6 768-6, 2132-06, #### [facility] CLIA [id number] [address] [place] [address] [place] MCH (RBC) [Entitic mass] 28.0 pg Normal 26.0-34.0 [facility] Comment on above: Order Comment: Speci men Type: BLOOD SPECIMEN [facility] Address: [address] [place] [address] Performed By: #### 6 768-6, 2132-06, #### [facility] CLIA [id number] [address] [place] [address] [place] MCHC (RBC) [Mass/Vol] 33.0 g/dL Normal 30.5-36.0 [facility] Comment on above: Order Comment: Speci men Type: BLOOD SPECIMEN [facility] Address: [address] [place] [address] Performed By: #### 6 768-6, 2132-06, #### [facility] CLIA [id number] [address] [place] [address] [place] MCV (RBC) [Entitic vol] 84.8 fL Normal 80.0-100.0 [facility] Comment on above: Order Comment: Speci men Type: BLOOD SPECIMEN [facility] Address: [address] [place] [address] Performed By: #### 6 768-6, 2132-06, #### [facility] CLIA [id number] [address] [place] [address] [place] Monocytes (Bld) [#/Vol] 0.48 10*3/uL Normal <0.87 [facility] Comment on above: Order Comment: Speci men Type: BLOOD SPECIMEN [facility] Address: [address] [place] [address] Performed By: #### 6 768-6, 2132-06, #### [facility] CLIA [id number] [address] [place] [address] [place] Monocytes/100 WBC (Bld) 6.0 % Normal [facility] Comment on above: Order Comment: Speci men Type: BLOOD SPECIMEN [facility] Address: [address] [place] [address] Performed By: #### 6 768-6, 2132-06, #### [facility] CLIA [id number] [address] [place] [address] [place] Neutrophils (Bld) [#/Vol] 4.55 10*3/uL Normal 1.45-7.50 [facility] [facility] Comment on above: Order Comment: Speci men Type: BLOOD SPECIMEN Ordering Facility: [facility] Address: [address] [place] [address] Performed By: #### 6 768-6, 2132-06, #### [facility] CLIA [id number] [address] [place] [address] [place] Neutrophils/100 WBC (Bld) 57.1 % Normal [facility] Comment on above: Order Comment: Speci men Type: BLOOD SPECIMEN Ordering Facility: [facility] Address: [address] [place] [address] Performed By: #### 6 768-6, 2132-06, #### [facility] CLIA [id number] [address] [place] [address] [place] Nucleated RBC (Bld) [#/Vol] 10*3/uL Normal <0.01 [facility] Comment on above: Order Comment: Speci men Type: BLOOD SPECIMEN Ordering Facility: [facility] Address: [address] [place] [address] Performed By: #### 6 768-6, 2132-06, 54439-8 #### [facility] CLIA [id number] [address] [place], [place] [address] [place] Nucleated RBC/100 WBC (Bld) [Ratio] 0.0 /100 WBC Normal [facility] Comment on above: Order Comment: Speci men Type: BLOOD SPECIMEN Ordering Facility: [facility] Address: [address] [place] [address] Performed By: #### 6 768-6, 2132-06, 87070-7 #### [facility] CLIA [id number] [address] [place] [address] [place] Platelet mean volume (Bld) [Entitic vol] 12.5 fL Normal 9.0-12.7 [facility] Comment on above: Order Comment: Speci men Type: BLOOD SPECIMEN Ordering Facility: [facility] Address: [address] [place] [address] Performed By: #### 6 768-6, 2132-06, #### [facility] CLIA [id number] [address] [place] [address] [place] Platelets (Bld) [#/Vol] 352 10*3/uL Normal 150-400 [facility] Comment on above: Order Comment: Speci men Type: BLOOD SPECIMEN Ordering Facility: [facility] Address: [address] [place] [address] Performed By: #### 6 768-6, 2132-06, 72524-3 #### [facility] CLIA [id number] [address] [place] [address] [place] RBC (Bld) [#/Vol] 4.40 10*6/uL Normal 4.20-6.00 [facility] Comment on above: Order Comment: Speci men Type: BLOOD SPECIMEN Ordering Facility: [facility] Address: [address] [place] [address] Performed By: #### 6 768-6, 2131-9, 72273-4 #### [facility] CLIA [id number] [address] [place] [address] [place] WBC (Bld) [#/Vol] 7.97 10*3/uL Normal 3.70-11.00 [facility] Comment on above: Order Comment: Speci men Type: BLOOD SPECIMEN Ordering Facility: [facility] Address: [address] [place] [address] Performed By: #### 6 768-6, 2131-9, 67218-5 #### [facility] CLIA [id number] [address] [place] [address] [place] CNOVon 12-20-2024 CNOV Office Visit (FAMWS ) -- BIANCA DELAROSA ([id number]) 1975 M Date Time Provider Department 12/20/24 9:40 AM [facility] During your visit today, we recorded the following information about you: Pulse Respiration Blood pressure Weight 88/minute 16/minute 128/84 130.2 kg Humberto Jackson MD 12/20/2024 12:26 PM Signed Chief Complaint Patient presents with: Follow Up HPI Bianca Delarosa is a 49 year old male who presents here today for follow up and discuss results of MRI. Patient also needs assistance for neurosurgeon. Patient with hx of DM 2, hyperlipidemia, GERD, mood disorder, thyroid nodules, allergies, depression, migraines, insomnia, MIKE as well as those reviewed and addressed below Patient has not had his blood work after MRI so he has not restarted the metformin. Patient had injured his right shoulder and had completed PT they suggested MRI. Patient was trying to wait but yesterday tripped over his feet and re-injured the left shoulder. With the PHYSICAL THERAPY he had more range of motion in the left shoulder but still has pain especially with use. Can still not lift things away from the body and throw things. X-ray of right shoulder 05/2024 was neg for acute issues. Past medical history, appointments, medications, allergies reviewed. 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 12/07/2022 Substance agreement signed 12/2022, Tox screen done 12/2022 Current use of proton pump inhibitor 09/26/2018 Diabetic eye exam ([facility]) 01/27/2017 Last eye exam: 03/05/2019 Diverticulosis 03/31/2014 Dyslipidemia 03/31/2014 Low HDL, High Trigs Elevated antinuclear antibody (JALEEL) level 03/31/2014 Family history of malignant neoplasm of gastrointestinal tract 03/31/2014 Fatty liver 10/28/2024 US: 10/2024 ISABELLA (generalized anxiety disorder) 06/22/2020 GERD without esophagitis 09/26/2018 Hiatal hernia 03/31/2014 History of COVID-19 09/23/20232021, 09/2023 Hx of colonic polyp 03/31/2014 Needs next colonoscopy 08/2022 Lump 11/16/2019 benign left palm Major depressive disorder with single episode, in partial remission ([facility]) 09/26/2018 Migraine without aura and without status migrainosus, not intractable 09/11/2015 Mood disorder ([facility]) 03/31/2014 Multiple thyroid nodules 02/27/[address] Lazaro 03/2018 Multiple thyroid nodules 02/27/2018 US 03/2020 per radiology no further f/u needed.. All benign Biopsy 03/[address] Lazaro. Benign. Obesity, Class II, BMI 35-39.9 10/21/2022 Obstructive sleep apnea syndrome 01/27/2017 On CPAP Other joint derangement, not elsewhere classified, lower leg 03/25/2013 Primary insomnia 07/28/2020 QT prolongation 04/20/2021 Seen [facility] 04/19/2021: Retsof to be benign and related to anti-depressants. No changes needed. TMJ (temporomandibular joint disorder) 03/31/2014 Right side Type 2 diabetes mellitus without complication, without long-term current use of insulin ([facility]) 01/19/2017 Well adult exam 12/17/2014 Last done:11/16/2019 Previous Surgical History PAST SURGICAL HISTORY Procedure Laterality Date APPENDECTOMY HX 2004 ARTHROTOMY W/MENISCUS REPAIR KNEE Right 04/2021 COLONOSCOPY 06/2012 Dr. Corrigan +polyp, repeat 5 yrs COLONOSCOPY 08/30/2022 repeat in 5 years COLONOSCOPY FLX DX W/COLLJ SPEC WHEN PFRMD 08/16/2017 Colonoscopy, repeat 5 yrs, Dr. Bliss PAST SURGICAL HISTORY OF 2008 benign cysts: 1 from head and 2 from neck TONSILLECTOMY AND ADENOIDECTOMY AGE 11/> 1979 TONSILLECTOMY HX Family History FAMILY HISTORY Problem Relation Age of Onset Colon Cancer Father 52 Coronary Artery Disease Father Coronary Artery Disease Mother 60's Hypertension Mother No Known Problems Brother No Known Problems Brother No Known Problems Brother Coronary Artery Disease Maternal Grandmother 60's Stroke Maternal Grandfather Colon Cancer Paternal Uncle 49 Alzheimer's Disease No Family History Prostate Cancer No Family History Breast Cancer No Family History Hyperlipidemia No Family History Kidney Disease No Family History Seizures No Family History Thyroid No Family History No Ocular Disease No Family History Patient Allergies ALLERGIES Allergen Reactions Topamax [Topiramate] Mental Status Change Unable to remember anything Celexa [Citalopram * Other: See Comments uneffective Effexor [Venlafaxin* Other: See Comments Sexual side affect Reglan [Metoclopram* Unknown Zoloft [Sertraline * Other: See Comments drowsy Current Medications Current Outpatient Medications on File Prior to Visit Medication Sig methylphenidate LA (RITAL (more content not included)... Normal [facility] Santos 12-20-2024 CHRISTOPHERN Telephone ([facility]AG[facility]) -- BIANCA DELAROSA ([id number]) 1975 M Date Time Provider Department 12/20/24 JA MCKEON [facility] During your visit today, we recorded the following information about you: Azalea Penaloza 12/20/2024 4:05 PM Signed I spoke to patient informing her that Dr. GARCIA does not see if pituitary tumors and I will speak to Dr. Wyman and see if he will be willing to see patient as patient ENDO appt is not until February. was not happy but understood. Allergies As of Date: 12/20/2024 Noted Allergy Reaction TOPAMAX (TOPIRAMATE) 02/04/2014 1 - Mental Status Change Comments: Unable to remember anything CELEXA (CITALOPRAM HYDROBROMIDE) 10/22/2014 14 - Other: See Comments Comments: uneffective EFFEXOR (VENLAFAXINE ANALOGUES) 10/22/2014 14 - Other: See Comments Comments: Sexual side affect REGLAN (METOCLOPRAMIDE HCL) 01/24/2007 16 - Unknown ZOLOFT (SERTRALINE HCL) 10/22/2014 14 - Other: See Comments Comments: drowsy Date Reviewed: 12/20/2024 Reviewed by: Humberto Jackson MD - Fully Assessed Prescriptions as of 12/20/2024 - OLANZapine (ZYPREXA) 5 mg tablet Take 1 tablet by mouth daily at bedtime. - methylphenidate LA (RITALIN LA) 20 mg biphasic capsule Take 1 capsule by mouth once daily for 30 days. - DULoxetine (CYMBALTA) 30 mg capsule Take 1 capsule by mouth once daily. - methylphenidate CD (METADATE CD) 20 mg biphasic capsule Take 1 capsule by mouth once daily for 30 days. - Blood-Glucose Sensor (FREESTYLE EVERT 3 SENSOR) agnes USE ONE SENSOR EVERY 14 DAY, IDDM, E11.9 - sucralfate (CARAFATE) 1 gram tablet Take one tab with lunch and before bed. - Fenofibrate 120 mg tab Take 1 tablet by mouth once daily. - esomeprazole (NEXIUM) 40 mg capsule Take 1 capsule by mouth two times a day. - atorvastatin (LIPITOR) 80 mg tablet Take 1 tablet by mouth once daily. - busPIRone (BUSPAR) 15 mg tablet Take one tab by mouth twice a day. - doxepin capsule 10 mg Take 1 capsule by mouth daily at bedtime. - DULoxetine (CYMBALTA) 60 mg capsule Take 1 capsule by mouth once daily. - TRESIBA FLEXTOUCH U-100 100 unit/mL (3 mL) injection pen Inject 60 units subcutaneous daily at bedtime. Dispense 60 mL for 90 day supply. - HUMALOG KWIKPEN INSULIN 100 unit/mL Inject subcutaneously 20 units breakfast, 20 units lunch, 20 units dinner plus sliding scale up to 82 units daily. Dispense 75 mL for a 90 day supply. - Insulin Wykoff, Disposable, (DROPLET PEN NEEDLE) 31 gauge x 3/16 Use 4 PEN NEEDLES to inject MEDICATION subcutaneously daily - metFORMIN (GLUCOPHAGE) 500 mg tablet Take 2 tablets by mouth two times a day with meals. - zonisamide (ZONEGRAN) 25 mg capsule Take 1 capsule by mouth once daily. - multivitamin tablet Take 1 tablet by mouth once daily. Problem List As Of Date 12/20/2024 Noted Resolved Other joint derangement, not elsewhere classifi*03/25/2013 Agitation [R45.1] 03/31/2014 Allergic rhinitis [J30.9] 03/31/2014 Elevated antinuclear antibody (JALEEL) level [R76.*03/31/2014 Diverticulosis [K57.90] 03/31/2014 Dyslipidemia [E78.5] 03/31/2014 Family history of malignant neoplasm of gastroi*03/31/2014 Hiatal hernia [K44.9] 03/31/2014 Mood disorder (HCC) [F39] 03/31/2014 TMJ (temporomandibular joint disorder) [M26.609]03/31/2014 Hx of colonic polyp [Z86.0100] 03/31/2014 Well adult exam [Z00.00] 12/17/2014 Allergy-induced asthma [J45.909] 05/12/2015 Migraine without aura and without status migrai*09/11/2015 Type 2 diabetes mellitus without complication, *01/19/2017 Obstructive sleep apnea syndrome [G47.33] 01/27/2017 Diabetic eye exam (HCC) [Z01.00, E11.9] 01/27/2017 Multiple thyroid nodules [E04.2] 02/27/2018 Major depressive disorder with single episode, *09/26/2018 GERD without esophagitis [K21.9] 09/26/2018 Lump [ADL5482] 11/16/2019 ISABELLA (generalized anxiety disorder) [F41.1] 06/22/2020 Primary insomnia [F51.01] 07/28/2020 Medication management [Z79.899] 07/28/2020 Joint stiffness of right lower leg [M25.661] 10/21/2020 12/22/2020 Right leg weakness [R29.898] 10/21/2020 12/22/2020 QT prolongation [R94.31] 04/20/2021 Obesity, Class II, BMI 35-39.9 [E66.812] 10/21/2022 Attention deficit disorder (ADD) without hypera*12/07/2022 History of COVID-19 [Z86.16] 09/23/2023 Acute pain of right shoulder [M25.511] 06/12/2024 Fatty liver [K76.0] 10/28/2024 Gynecomastia, male [N62] 12/03/2024 Elevated prolactin level [R79.89] 12/11/2024 Abnormal finding on MRI of brain [R90.89] 12/11/2024 Gynecomastia [N62] 12/20/2024 Encounter Status:Closed by AZALEA PENALOZA on 12/20/24 Normal [facility] Comprehensive metabolic 2000 panelon 12-20-2024 Albumin [Mass/Vol] 4.5 g/dL Normal 3.9-4.9 [facility] Comment on above: Order Comment: Speci men Type: BLOOD SPECIMEN Ordering Facility: [facility] Address: [address] [place] [address] Performed By: #### 6 768-6, 2132-06, #### [facility] CLIA [id number] [address] [place] [address] [place] ALT [Catalytic activity/Vol] 12 U/L Normal 10-54 [facility] Comment on above: Order Comment: Speci men Type: BLOOD SPECIMEN Ordering Facility: [facility] Address: [address] [place] [address] Performed By: #### 6 768-6, 2132-06, #### [facility] CLIA [id number] [address] [place], [place] [address] [place] Anion gap [Moles/Vol] 12 mmol/L Normal 8-15 [facility] Comment on above: Order Comment: Speci men Type: BLOOD SPECIMEN Ordering Facility: [facility] Address: [address] [place] [address] Performed By: #### 6 768-6, 2132-06, #### [facility] CLIA [id number] [address] [place], [place] [address] [place] AST [Catalytic activity/Vol] 18 U/L Normal 14-40 [facility] Comment on above: Order Comment: Speci men Type: BLOOD SPECIMEN Ordering Facility: [facility] Address: [address] [place] [address] Performed By: #### 6 768-6, 2132-06, #### [facility] CLIA [id number] [address] [place], [place] [address] [place] Bilirubin [Mass/Vol] 0.2 mg/dL Normal 0.2-1.3 [facility] Comment on above: Order Comment: Speci men Type: BLOOD SPECIMEN Ordering Facility: [facility] Address: [address] [place] [address] Performed By: #### 6 768-6, 2132-06, #### [facility] CLIA [id number] [address] [place], [place] [address] [place] Calcium [Mass/Vol] 9.4 mg/dL Normal 8.5-10.2 [facility] Comment on above: Order Comment: Speci men Type: BLOOD SPECIMEN Ordering Facility: [facility] Address: [address] [place], [place] [address] Performed By: #### 6 768-6, 2132-06, #### [facility] CLIA [id number] [address] [place] [address] [place] Chloride [Moles/Vol] 103 mmol/L Normal 98-107 [facility] Comment on above: Order Comment: Speci men Type: BLOOD SPECIMEN Ordering Facility: [facility] Address: [address] [place] [address] Performed By: #### 6 768-6, 2132-06, #### [facility] CLIA [id number] [address] [place] [address] [place] CO2 [Moles/Vol] 23 mmol/L Normal 22-30 [facility] Comment on above: Order Comment: Speci men Type: BLOOD SPECIMEN Ordering Facility: [facility] Address: [address] [place] [address] Performed By: #### 6 768-6, 2132-06, 17058-7 #### [facility] CLIA [id number] [address] [place] [address] [place] Creatinine [Mass/Vol] 0.68 mg/dL Low 0.73-1.22 [facility] Comment on above: Order Comment: Speci men Type: BLOOD SPECIMEN Ordering Facility: [facility] Address: [address] [place] [address] Performed By: #### 6 768-6, 2132-06, 06769-9 #### [facility] CLIA [id number] [address] [place] [address] [place] Creatinine and Glomerular filtration rate.predicted panel (S/P/Bld) 113 mL/min/1.73m??? Normal >=60 [facility] Comment on above: Order Comment: Speci men Type: BLOOD SPECIMEN Ordering Facility: [facility] Address: [address] [place] [address] Result Comment: Tia mated Glomerular Filtration Rate (eGFR) is calculated using the 2020 CKD-EPI creatinine equation. This equation utilizes serum creatinine, sex, and age as parameters. The creatinine assay has traceable calibration to isotope dilution-mass spectrometry. Refer to KDIGO guidelines for clinical interpretation. In patients with unstable renal function, e.g. those with acute kidney injury, the eGFR may not accurately reflect actual GFR. Performed By: #### 6 768-6, 2132-06, #### [facility] CLIA [id number] [address] [address] [place] Glucose [Mass/Vol] 322 mg/dL High 74-99 [facility] Comment on above: Order Comment: Catherine hendrix Type: BLOOD SPECIMEN Ordering Facility: [facility] Address: [address] [place] [address] Result Comment: The [place] Diabetes Association (ADA) provides guidance for cutoff values for fasting glucose and random glucose. The ADA defines fasting as no caloric intake for at least 8 hours. Fasting plasma glucose results between 100 to 125 mg/dL indicate increased risk for diabetes (prediabetes). Fasting plasma glucose results greater than or equal to 126 mg/dL meet the criteria for diagnosis of diabetes. In the absence of unequivocal hyperglycemia, results should be confirmed by repeat testing. In a patient with classic symptoms of hyperglycemia or hyperglycemic crisis, random plasma glucose results greater than or equal to 200 mg/dL meet the criteria for diagnosis of diabetes. Reference: Standards of Medical Care in Diabetes 2016, [place] Diabetes Association. Diabetes Care. 2016.39(Suppl 1). Performed By: #### 6 768-6, 2132-06, #### [facility] CLIA [id number] [facility] [address] [address] [place] Potassium [Moles/Vol] 4.5 mmol/L Normal 3.7-5.1 [facility] Comment on above: Order Comment: Catherine hendrix Type: BLOOD SPECIMEN Ordering Facility: [facility] Address: [address] [place] [address] Performed By: #### 6 768-6, 2132-06, #### [facility] CLIA [id number] [address] [address] [place] Protein [Mass/Vol] 6.5 g/dL Normal 6.3-8.0 [facility] Comment on above: Order Comment: Speci men Type: BLOOD SPECIMEN Ordering Facility: [facility] Address: [address] [place] [address] Performed By: #### 6 768-6, 2132-06, #### [facility] CLIA [id number] [address] [place] [address] [place] Sodium [Moles/Vol] 138 mmol/L Normal 136-144 [facility] Comment on above: Order Comment: Speci men Type: BLOOD SPECIMEN Ordering Facility: [facility] Address: [address] [place] [address] Performed By: #### 6 768-6, 2132-06, #### [facility] CLIA [id number] [address] [place] [address] [place] Urea nitrogen [Mass/Vol] 12 mg/dL Normal 9-24 [facility] Comment on above: Order Comment: Speci men Type: BLOOD SPECIMEN Ordering Facility: [facility] Address: [address] [place] [address] Performed By: #### 6 768-6, 2132-06, #### [facility] CLIA [id number] [address] [place] [address] [place] GGT SerPl-cCncon 12-20-2024 Gamma glutamyl transferase [Catalytic activity/Vol] 36 U/L Normal 10-70 [facility] Comment on above: Order Comment: Speci men Type: BLOOD SPECIMEN Ordering Facility: [facility] Address: [address] [place] [address] Performed By: #### 6 768-6, 2132-06, #### [facility] CLIA [id number] [address] [place], [place] [address] [place] HbA1c (Bld)on 12-20-2024 Average glucose Estimated from glycated hemoglobin (Bld) [Mass/Vol] 255 mg/dL Normal [facility] Comment on above: Order Comment: Catherine hendrix Type: BLOOD SPECIMEN Ordering Facility: [facility] Address: [address] [place] [address] Result Comment: eAG: (Estimated average glucose) is a calculated value from HgbA1c and is senior customer service representative of the average blood glucose level in the last 2-3 month period. Performed By: #### 6 768-6, 2132-06, #### [facility] CLIA [id number] [address] [place] [address] [place] HbA1c (Bld) [Mass fraction] 10.5 % High 4.3-5.6 [facility] Comment on above: Order Comment: Catherine hendrix Type: BLOOD SPECIMEN Ordering Facility: [facility] Address: [address] [place] [address] Result Comment: [place] Diabetes Association guidelines indicate that patients with HgbA1c in the range 5.7-6.4% are at increased risk for development of diabetes, and intervention by lifestyle modification may be beneficial. HgbA1c greater or equal to 6.5% is considered diagnostic of diabetes. Performed By: #### 6 768-6, 2132-06, #### [facility] CLIA [id number] [address] [place] [address] [place] LIPID PANEL, NONFASTINGon Cholesterol [Mass/Vol] 147 mg/dL Normal <200 [facility] Comment on above: Order Comment: Catherine hendrix Type: BLOOD SPECIMEN Ordering Facility: [facility] Address: [address] [place] [address] Result Comment: <200 mg/dL, Desirable 200-239 mg/dL, Borderline high >239 mg/dL, High Performed By: #### 6 768-6, 2132-06, #### [facility] CLIA [id number] [address] [place] [address] [place] HDL CHOLESTEROL, NF 25 mg/dL Low >39 [facility] Comment on above: Order Comment: Catherine simeon Type: BLOOD SPECIMEN Ordering Facility: [facility] Address: [address] [place] [address] Result Comment: 40-5 9 mg/dL, Acceptable >59 mg/dL, High: Negative risk factor for coronary heart disease <40 mg/dL, Low: Positive risk factor for coronary heart disease Performed By: #### 6 768-6, 2132-06, #### [facility] CLIA [id number] [address] [place] [address] [facility] LDL CHOLESTEROL, NF 54 mg/dL Normal <100 [facility] Comment on above: Order Comment: Catherine simeon Type: BLOOD SPECIMEN Ordering Facility: [facility] Address: [address] [place] [address] Result Comment: <100 mg/dL, Optimal 100-129 mg/dL, Near optimal/above optimal 130-159 mg/dL, Borderline high 160-189 mg/dL, High >189 mg/dL, Very high Secondary prevention optimal LDL Cholesterol levels are recommended to be < 70 mg/dL Performed By: #### 6 768-6, 2132-06, #### [facility] CLIA [id number] [address] [place] [address] [facility] LDL/HDL RATIO, NF 2.16 mg/dL Normal <2.54 [facility] Comment on above: Order Comment: Laytonrobin hendrix Type: BLOOD SPECIMEN Ordering Facility: [facility] Address: [address] [place] [address] Result Comment: Refe rence: 1. National Cholesterol Education Program ATP III Guideline At-A-Glance Quick Desk Reference: National Heart, Lung, and Blood [place]. National Institutes of Health. 2001: NIH Publication No. 01-3305. 2. An International Atherosclerosis Society position paper: global recommendations for the management of dyslipidemia: executive summary, Atherosclerosis. 2014: 232(2):410-413. Performed By: #### 6 768-6, 2132-06, #### [facility] CLIA [id number] [facility] [place] [id number] [place] NON HDL CHOL, NF 122 mg/dL Normal <130 [facility] Comment on above: Order Comment: Catherine men Type: BLOOD SPECIMEN Ordering Facility: [facility] Address: [address] [place], [place] [id number] Result Comment: <130 mg/dL, Optimal 130-159 mg/dL, Near optimal/above optimal 160-189 mg/dL, Borderline high 190-219 mg/dL, High >219 mg/dL, Very high Secondary prevention optimal non HDL Cholesterol levels are recommended to be <100 mg/dL Performed By: #### 6 768-6, 2132-06, #### [facility] CLIA [id number] [address] [place] [address] [place] T CHOL/HDL RATIO NF 5.88 mg/dL High <5.10 [facility] Comment on above: Order Comment: Laytoni men Type: BLOOD SPECIMEN Ordering Facility: [facility] Address: [address] [place] [address] Performed By: #### 6 768-6, 2132-06, #### [facility] CLIA [id number] [address] [place] [address] [place] TRIGLYCERIDES, NF 338 mg/dL High <150 [facility] Comment on above: Order Comment: Speci men Type: BLOOD SPECIMEN Ordering Facility: [facility] Address: [address] [place], [place] [id number] Result Comment: <150 mg/dL, Normal 150-199 mg/dL, Borderline high 200-499 mg/dL, High >499 mg/dL, Very high Performed By: #### 6 768-6, 2132-06, #### [facility] CLIA [id number] [address] [place], [place] [address] [place] VLDL CHOLESTEROL, NF 68 mg/dL High <30 [facility] Comment on above: Order Comment: Speci men Type: BLOOD SPECIMEN Ordering Facility: [facility] Address: [address] [place] [address] Performed By: #### 6 768-6, 2132-06, #### [facility] CLIA [id number] [address] [place] [address] [place] Magnesium SerPl-mCncon 12-20 Magnesium [Mass/Vol] 2.1 mg/dL Normal 1.7-2.3 [facility] Comment on above: Order Comment: Speci men Type: BLOOD SPECIMEN Ordering Facility: [facility] Address: [address] [place] [address] Performed By: #### 6 768-6, 2132-06, #### [facility] CLIA [id number] [address] [place] [address] [place] Mitochondria Ab IF Ql (S)on 12-20-2024 Mitochondria M2 Ab IA Qn (S) 2.7 Units Normal <=20.0 [facility] Comment on above: Order Comment: Speci men Type: BLOOD SPECIMEN Ordering Facility: [facility] Address: [address] [place] [address] Performed By: #### 6 768-6, 2132-06, #### [facility] CLIA [id number] [address] [place] [address] [place] Mitochondria M2 Ab Ql (S) Negative Normal Negative [facility] Comment on above: Order Comment: Speci men Type: BLOOD SPECIMEN Ordering Facility: [facility] Address: [address] [place] [address] Result Comment: Anti -mitochondrial antibody test is used as an aid in diagnosis of primary biliary cholangitis. Clinical correlation is required. Performed By: #### 6 768-6, 2132-06, #### [facility] CLIA [id number] [address] [place] [address] [place] TSH SerPl-aCncon 12-20-2024 TSH Qn 1.230 m[IU]/L Normal 0.270-4.200 [facility] Comment on above: Order Comment: Speci men Type: BLOOD SPECIMEN Ordering Facility: [facility] Address: [address] [place] [address] Performed By: #### 6 768-6, 2132-9, 99106-4 #### [facility] CLIA [id number] [address] [place] [address] [place] Urinalysis complete panel (U )on 12-20-2024 Bacteria LM.HPF (Urine sed) [#/Area] Negative Normal Negative [facility] Comment on above: Order Comment: Speci men Type: URINE SPECIMENOrdering Facility: [facility] Address: [address] [place] [address] Performed By: #### 2 4356-8 ####[facility] [id number] [place] [address] [place] Bilirubin Ql (U) Negative Normal Negative [facility] Comment on above: Order Comment: Speci men Type: URINE SPECIMENOrdering Facility: [facility] Address: [address] [place] [address] Performed By: #### 2 4356-8 ####[facility] [id number] [place] [address] [place] Clarity (Unsp spec) Clear Normal Clear [facility] Comment on above: Order Comment: Speci men Type: URINE SPECIMENOrdering Facility: [facility] Address: [address] [place] [address] Performed By: #### 2 4356-8 ####[facility] [id number] [place] [address] [place] Color (U) Yellow Normal Yellow [facility] Comment on above: Order Comment: Speci men Type: URINE SPECIMENOrdering Facility: [facility] Address: [address] [place] [address] Performed By: #### 2 4356-8 ####[facility] [id number] [address] Epithelial cells LM.HPF (Urine sed) [#/Area] None Seen Normal [facility] Comment on above: Order Comment: Speci men Type: URINE SPECIMENOrdering Facility: [facility] Address: [address] [place] [address] Performed By: #### 2 4356-8 ####[facility] [id number] [address] Glucose Test strip (U) [Mass/Vol] 3+ Abnormal Negative [facility] Comment on above: Order Comment: Speci men Type: URINE SPECIMENOrdering Facility: [facility] Address: [address] [place] [address] Performed By: #### 2 4356-8 ####[facility] [id number] [place] [address] [place] Hemoglobin Ql (U) Negative Normal Negative [facility] Comment on above: Order Comment: Speci men Type: URINE SPECIMENOrdering Facility: [facility] Address: [address] [place] [address] Performed By: #### 2 4356-8 ####[facility] [id number] [address] [place] Hyaline casts (Urine sed) [#/Area] 0 /[LPF] Normal 0 /LPF [facility] Comment on above: Order Comment: Speci men Type: URINE SPECIMENOrdering Facility: [facility] Address: [address] [place] [address] Performed By: #### 2 4356-8 ####[facility] [id number] [address] [place] Ketones Ql (U) Trace Abnormal Negative [facility] Comment on above: Order Comment: Speci men Type: URINE SPECIMENOrdering Facility: [facility] Address: [address] [place] [address] Performed By: #### 2 4356-8 ####[facility] [id number] [address] [place] [address] [place] Leukocyte esterase Test strip Ql (U) Negative Normal Negative [facility] Comment on above: Order Comment: Speci men Type: URINE SPECIMENOrdering Facility: [facility] Address: [address] [place] [address] Performed By: #### 2 4356-8 ####[facility] [id number] [address], [facility] [place] Nitrite Ql (U) Negative Normal Negative [facility] Comment on above: Order Comment: Speci men Type: URINE SPECIMENOrdering Facility: [facility] Address: [address] [place] [address] Performed By: #### 2 4356-8 ####[facility] [id number] [address], [facility] [place] pH (U) 7.0 [pH] Normal <8.5 [facility] Comment on above: Order Comment: Speci men Type: URINE SPECIMENOrdering Facility: [facility] Address: [address] [place] [address] Performed By: #### 2 4356-8 ####[facility] [id number] [address] [place] [address] [place] Protein (U) [Mass/Vol] Trace Abnormal Negative [facility] Comment on above: Order Comment: Speci men Type: URINE SPECIMENOrdering Facility: [facility] Address: [address] [place] [address] Performed By: #### 2 4356-8 ####[facility] [id number] [address] [place] RBC LM.HPF (Urine sed) [#/Area] 0-2 /HPF Normal 0-2 /HPF [facility] Comment on above: Order Comment: Speci men Type: URINE SPECIMENOrdering Facility: [facility] Address: [address] [place] [address] Performed By: #### 2 4356-8 ####[facility] [id number] [place] [address] [place] Specific gravity (U) [Rel density] >1.045 High 1.005-1.030 [facility] Comment on above: Order Comment: Speci men Type: URINE SPECIMENOrdering Facility: [facility] Address: [address] [place] [address] Performed By: #### 2 4356-8 ####[facility] [id number] [place] [address] [place] Urobilinogen Ql (U) 0.2 EU/dL Normal 0.2-1.0 EU/dL [facility] Comment on above: Order Comment: Speci men Type: URINE SPECIMENOrdering Facility: [facility] Address: [address] [place] [address] Performed By: #### 2 4356-8 ####[facility] [id number] [place] [address] [place] WBC LM.HPF (Urine sed) [#/Area] 0-5 /HPF Normal 0-5 /HPF [facility] Comment on above: Order Comment: Speci men Type: URINE SPECIMENOrdering Facility: [facility] Address: [address] [place] [address] Performed By: #### 2 4356-8 ####[facility] [id number] [place] [address] [place] Vit B12 [facility] Cobalamin (Vitamin B12) [Mass/Vol] 438 pg/mL Normal 232-1245 [facility] Comment on above: Order Comment: Speci men Type: BLOOD SPECIMEN Ordering Facility: [facility] Address: [address] [place] [address] Performed By: #### 6 768-6, 2132-9, 36371-0 #### [facility] CLIA [id number] [address] [place] [address] [place] CNPNon 2024 CNPN Telephone (NEMN) -- BIANCA DELAROSA ([id number]) 1975 M Date Time Provider Department 12/13/24 KARTHIK NOLAN [facility] During your visit today, we recorded the following information about you: Laurie Gonzales LPN 2024 2:31 PM [facility] NEW PATIENT REFERRAL TRIAGE Referral source:self No referring provider defined for this encounter. Referral Reason: for a second opinion on neurological symptoms Care Everywhere Completed Connection: [x]Yes or []No MyChart Dot Phrase Sent if Records were not sent MyChart Account?: [x]Yes or []No MyChart Dot Phrase Sent: Date 2024 Laurie Gonzales LPN Allergies As of Date: 2024 Noted Allergy Reaction TOPAMAX (TOPIRAMATE) 02/04/2014 1 - Mental Status Change Comments: Unable to remember anything CELEXA (CITALOPRAM HYDROBROMIDE) 10/22/2014 14 - Other: See Comments Comments: uneffective EFFEXOR (VENLAFAXINE ANALOGUES) 10/22/2014 14 - Other: See Comments Comments: Sexual side affect REGLAN (METOCLOPRAMIDE HCL) 01/24/2007 16 - Unknown ZOLOFT (SERTRALINE HCL) 10/22/2014 14 - Other: See Comments Comments: drowsy Date Reviewed: 12/11/2024 Reviewed by: Ariadna Hernandes, RT(R) - Fully Assessed Prescriptions as of 12/17/2024 - methylphenidate LA (RITALIN LA) 20 mg biphasic capsule Take 1 capsule by mouth once daily for 30 days. - DULoxetine (CYMBALTA) 30 mg capsule Take 1 capsule by mouth once daily. - methylphenidate CD (METADATE CD) 20 mg biphasic capsule Take 1 capsule by mouth once daily for 30 days. - Blood-Glucose Sensor (FREESTYLE EVERT 3 SENSOR) agnes USE ONE SENSOR EVERY 14 DAY, IDDM, E11.9 - sucralfate (CARAFATE) 1 gram tablet Take one tab with lunch and before bed. - Fenofibrate 120 mg tab Take 1 tablet by mouth once daily. - esomeprazole (NEXIUM) 40 mg capsule Take 1 capsule by mouth two times a day. - atorvastatin (LIPITOR) 80 mg tablet Take 1 tablet by mouth once daily. - busPIRone (BUSPAR) 15 mg tablet Take one tab by mouth twice a day. - doxepin capsule 10 mg Take 1 capsule by mouth daily at bedtime. - DULoxetine (CYMBALTA) 60 mg capsule Take 1 capsule by mouth once daily. - OLANZapine (ZYPREXA) 5 mg tablet Take 1 tablet by mouth daily at bedtime. - TRESIBA FLEXTOUCH U-100 100 unit/mL (3 mL) injection pen Inject 60 units subcutaneous daily at bedtime. Dispense 60 mL for 90 day supply. - HUMALOG KWIKPEN INSULIN 100 unit/mL Inject subcutaneously 20 units breakfast, 20 units lunch, 20 units dinner plus sliding scale up to 82 units daily. Dispense 75 mL for a 90 day supply. - Insulin Wykoff, Disposable, (DROPLET PEN NEEDLE) 31 gauge x /16 Use 4 PEN NEEDLES to inject MEDICATION subcutaneously daily - metFORMIN (GLUCOPHAGE) 500 mg tablet Take 2 tablets by mouth two times a day with meals. - zonisamide (ZONEGRAN) 25 mg capsule Take 1 capsule by mouth once daily. - multivitamin tablet Take 1 tablet by mouth once daily. Problem List As Of Date 2024 Noted Resolved Other joint derangement, not elsewhere classifi*03/25/2013 Agitation [R45.1] 03/31/2014 Allergic rhinitis [J30.9] 03/31/2014 Elevated antinuclear antibody (JALEEL) level [R76.*03/31/2014 Diverticulosis [K57.90] 03/31/2014 Dyslipidemia [E78.5] 03/31/2014 Family history of malignant neoplasm of gastroi*03/31/2014 Hiatal hernia [K44.9] 03/31/2014 Mood disorder (HCC) [F39] 03/31/2014 TMJ (temporomandibular joint disorder) [M26.609]03/31/2014 Hx of colonic polyp [Z86.0100] 03/31/2014 Well adult exam [Z00.00] 12/17/2014 Allergy-induced asthma [J45.909] 05/12/2015 Migraine without aura and without status migrai*09/11/2015 Type 2 diabetes mellitus without complication, *01/19/2017 Obstructive sleep apnea syndrome [G47.33] 01/27/2017 Diabetic eye exam (HCC) [Z01.00, E11.9] 01/27/2017 Multiple thyroid nodules [E04.2] 02/27/2018 Major depressive disorder with single episode, *09/26/2018 GERD without esophagitis [K21.9] 09/26/2018 Lump [YWQ5071] 11/16/2019 ISABELLA (generalized anxiety disorder) [F41.1] 06/22/2020 Primary insomnia [F51.01] 07/28/2020 Medication management [Z79.899] 07/28/2020 Joint stiffness of right lower leg [M25.661] 10/21/2020 12/22/2020 Right leg weakness [R29.898] 10/21/2020 12/22/2020 QT prolongation [R94.31] 04/20/2021 Obesity, Class II, BMI 35-39.9 [E66.812] 10/21/2022 Attention deficit disorder (ADD) without hypera*12/07/2022 History of COVID-19 [Z86.16] 09/23/2023 Acute pain of right shoulder [M25.511] 06/12/2024 Fatty liver [K76.0] 10/28/2024 Gynecomastia, male [N62] 12/03/2024 Elevated prolactin level [R79.89] 12/11/2024 Abnormal finding on MRI of brain [R90.89] 12/11/2024 Encounter Status:Closed by LAURIE GONZALES on 12/17/24 Normal [facility] CHRISTOPHERBanner 12-12-2024 CNPN Telephone (NSCAMN) -- BIANCA DELAROSA ([id number]) 1975 M Date Time Provider Department 12/12/24 SELF NSCAMN During your visit today, we recorded the following information about you: Bland, Radha 12/12/2024 9:26 AM Signed Request Summary [[id number]] Procedure: CONSULT TO NEUROSURGERY Status: Needs Scheduling Requested appt date: Authorizing: Humberto Jackson MD in [facility] Referral: [id number] (Authorized) Expires: 12/11/2025 Priority: Routine Diagnosis: Gynecomastia, male [N62] Elevated prolactin level [R79.89] Abnormal finding on MRI of brain [R90.89] Order Specific Questions Does consulting provider have [facility] Epic access? [facility] Corazon Reed APRN.CIRCUIT COURT CLERK 12/12/2024 9:50 AM Signed Time Frame: Next available If unable to obtain an appointment within requested time frame, please contact appropriate health care marketing manager for scheduling access Provider: Miles Raymond Referring: Humberto Jackson MD Please instruct patient to hand carry/ upload images prior to appt Dx: pituitary adenoma Patient: Bianca Delarosa Address: Bianca Delraosa [id number] [address] [place] [address] Per Triage: Bianca Delarosa is a 48 year old male that requests evaluation of previously diagnosed pituitary adenoma during work up for gynecomastia. Patient expectations: New Consult Tumor Specifics: Location: pituitary Previous Evaluations: MRI w/wo contrast * * *Final Report* * * DATE OF EXAM: Dec 11 2024 10:59AM [facility] 0295 - MRI BRAIN WO/W IVCON / PROCEDURE REASON: multiple diagnoses * * * * Physician Interpretation * * * * Examination performed: MRI of the pituitary without and with contrast. MR Contrast: Dotarem Contrast Dose (cc): 10 Route of Administration: Intravenous Clinical indication: Gynecomastia and low testosterone. Comparison: None. Findings: Examination is focused on the pituitary gland. No acute infarct. Imaged brain parenchyma demonstrates no gross mass effect, midline shift, or hydrocephalus. Minimal nonspecific white matter change. Skull base and extra cranial soft tissues are unremarkable. Cavernous sinus and Meckel's cave are normal bilaterally. No abnormal enhancement following contrast administration. Convex upper margin of the pituitary gland which measures maximum craniocaudal dimension of 8 mm. Homogeneous enhancement. Impression: Convex upper margin of the pituitary gland could reflect an underlying lesion/adenoma or pituitary hyperplasia. Franchise Specialist: [facility] Transcribe Date/Time: Dec 11 2024 11:13A Dictated by : DAVID FAY MD This examination was interpreted and the report reviewed and electronically signed by: DAVID FAY MD on Dec 11 2024 11:19AM EST Endocrinology Evaluation Latest Reference Range AND Units 11/22/24 08:50 Free T4 0.9 - 1.7 ng/dL 1.1 TSH 0.270 - 4.200 mIU/L 1.190 Estradiol 17B <43 pg/mL <25 FSH 1.5 - 12.4 mIU/mL 7.2 hCG Quantitative, Blood <5.0 mIU/mL <0.6 LH 1.7 - 8.6 mIU/mL 3.7 Prolactin 4.1 - 25.1 ng/mL 41.2 (H) Testosterone 193 - 824 ng/dL 166 (L) (H): Data is abnormally high (L): Data is abnormally low Corazon Reed APRN.CNP December 12, 2024 Radha Bland 12/12/2024 10:15 AM Signed Patient has been scheduled and confirmed Radha Bland December 12, 2024 10:15 AM Allergies As of Date: 12/12/2024 Noted Allergy Reaction TOPAMAX (TOPIRAMATE) 02/04/2014 1 - Mental Status Change Comments: Unable to remember anything CELEXA (CITALOPRAM HYDROBROMIDE) 10/22/2014 14 - Other: See Comments Comments: uneffective EFFEXOR (VENLAFAXINE ANALOGUES) 10/22/2014 14 - Other: See Comments Comments: Sexual side affect REGLAN (METOCLOPRAMIDE HCL) 01/24/2007 16 - Unknown ZOLOFT (SERTRALINE HCL) 10/22/2014 14 - Other: See Comments Comments: drowsy Date Reviewed: 12/11/2024 Reviewed by: Ariadna Hernandes RT(R) - Fully Assessed Reason for Visit: Triage [Other] Cmt: WQ Prescriptions as of 12/12/2024 - methylphenidate LA (RITALIN LA) 20 mg biphasic capsule Take 1 capsule by mouth once daily for 30 days. - DULoxetine (CYMBALTA) 30 mg capsule Take 1 capsule by mouth once daily. - methylphenidate CD (METADATE CD) 20 mg biphasic capsule Take 1 capsule by mouth once daily for 30 days. - Blood-Glucose Sensor (FREESTYLE EVERT 3 SENSOR) agnes USE ONE SENSOR EVERY 14 DAY, IDDM, E11.9 - sucralfate (CARAFATE) 1 gram tablet Take one tab with lunch and before bed. - Fenofibrate 120 mg tab Take 1 tablet by mouth once daily. - esomeprazole (NEXIUM) 40 mg capsule Take 1 capsule by mouth two times a day. - atorvastatin (LIPITOR) 80 mg tablet Take 1 tablet by mouth once daily. - busPIRone (BUSPAR) 15 mg tablet Take one tab by mouth twice a day. - doxepin capsule 10 mg Take 1 capsule by mouth daily at bedtime. - DULoxetine (CYMBALTA) 60 mg capsule (more content not included)... Normal [facility] MR Brain WO and W contrast I Von 12-11-2024 * * *Final Report* * * DATE OF EXAM: Dec 11 2024 10:59AM [facility] 0295 - MRI BRAIN WO/W IVCON / PROCEDURE REASON: multiple diagnoses * * * * Physician Interpretation * * * * Examination performed: MRI of the pituitary without and with contrast. MR Contrast: Dotarem Contrast Dose (cc): 10 Route of Administration: Intravenous Clinical indication: Gynecomastia and low testosterone. Comparison: None. Findings: Examination is focused on the pituitary gland. No acute infarct. Imaged brain parenchyma demonstrates no gross mass effect, midline shift, or hydrocephalus. Minimal nonspecific white matter change. Skull base and extra cranial soft tissues are unremarkable. Cavernous sinus and Meckel's cave are normal bilaterally. No abnormal enhancement following contrast administration. Convex upper margin of the pituitary gland which measures maximum craniocaudal dimension of 8 mm. Homogeneous enhancement. Impression: Convex upper margin of the pituitary gland could reflect an underlying lesion/adenoma or pituitary hyperplasia. [facility]anchise Special[facility] Transcribe Date/Time: Dec 11 2024 11:13A Dictated by : DAVID FAY MD This examination was interpreted and the report reviewed and electronically signed by: DAVID FAY MD on Dec 11 2024 11:19AM EST DIVISION OF RADIOLOGY Provider, [facility] - 12/11/2024 * * *Final Report* * * DATE OF EXAM: Dec 11 2024 10:59AM [facility] 0295 - MRI BRAIN WO/W IVCON / PROCEDURE REASON: multiple diagnoses * * * * Physician Interpretation * * * * Examination performed: MRI of the pituitary without and with contrast. MR Contrast: Dotarem Contrast Dose (cc): 10 Route of Administration: Intravenous Clinical indication: Gynecomastia and low testosterone. Comparison: None. Findings: Examination is focused on the pituitary gland. No acute infarct. Imaged brain parenchyma demonstrates no gross mass effect, midline shift, or hydrocephalus. Minimal nonspecific white matter change. Skull base and extra cranial soft tissues are unremarkable. Cavernous sinus and Meckel's cave are normal bilaterally. No abnormal enhancement following contrast administration. Convex upper margin of the pituitary gland which measures maximum craniocaudal dimension of 8 mm. Homogeneous enhancement. Impression: Convex upper margin of the pituitary gland could reflect an underlying lesion/adenoma or pituitary hyperplasia. Franchise Specialist: [facility] Transcribe Date/Time: Dec 11 2024 11:13A Dictated by : DAVID FAY MD This examination was interpreted and the report reviewed and electronically signed by: DAVID FAY MD on Dec 11 2024 11:19AM EST [facility] Radiology Study observation (narrative) [facility] MR Brain WO and W contrast I VOrdered By: [facility] Provider on 12-11-[address] [facility] MRI BRAIN WO/W IVCONon 12-11 MRI BRAIN WO/W IVCON * * *Final Report* * * DATE OF EXAM: Dec 11 2024 10:59AM [facility] 0295 - MRI BRAIN WO/W IVCON / PROCEDURE REASON: multiple diagnoses * * * * Physician Interpretation * * * * Examination performed: MRI of the pituitary without and with contrast. MR Contrast: Dotarem Contrast Dose (cc): 10 Route of Administration: Intravenous Clinical indication: Gynecomastia and low testosterone. Comparison: None. Findings: Examination is focused on the pituitary gland. No acute infarct. Imaged brain parenchyma demonstrates no gross mass effect, midline shift, or hydrocephalus. Minimal nonspecific white matter change. Skull base and extra cranial soft tissues are unremarkable. Cavernous sinus and Meckel's cave are normal bilaterally. No abnormal enhancement following contrast administration. Convex upper margin of the pituitary gland which measures maximum craniocaudal dimension of 8 mm. Homogeneous enhancement. Impression: Convex upper margin of the pituitary gland could reflect an underlying lesion/adenoma or pituitary hyperplasia. Franchise Specialist: [facility] Transcribe Date/Time: Dec 11 2024 11:13A Dictated by : DAVID FAY MD This examination was interpreted and the report reviewed and electronically signed by: DAVID FAY MD on Dec 11 2024 11:19AM EST [id number] Normal [facility] DBT Breast - bilateral diagn ostic for implanton 12-03-2024 Addendum by Provider , [facility] [place] on 12/03/2024 9:46 AM EST * * *Final Report* * * * * * SEE BOTTOM OF REPORT FOR ADDENDED TEXT * * * DATE OF EXAM: Dec 03 2024 8:41AM [facility] 0627 - [facility] DIAG W GEOVANNI DYLON / PROCEDURE REASON: Subareolar mass of right breast * * * * Physician Interpretation * * * * RESULT: [facility] [address] [place] [address] #[id number] - [facility] DIAG W GEOVANNI DYLON #[id number] - [facility] BREAST LTD RT HISTORY: 48 year-old patient seen for diagnostic evaluation of a palpable abnormality in the right breast. Patient states no personal history of breast cancer. COMPARISON STUDIES: No prior imaging studies are available for comparison. MAMMOGRAM TECHNIQUE: The study was acquired using full field digital technology and interpreted from soft copy. Digital Breast Tomosynthesis (DBT) images were obtained and used to assist in the interpretation of this examination. MAMMOGRAM FINDINGS: The breasts are almost entirely fatty. There is gynecomastia in the retroareolar region of the right breast. No suspicious masses, calcifications or other abnormalities are seen in either breast. ULTRASOUND TECHNIQUE: Targeted ultrasound of the indicated area was performed. Brooks scale images were saved. ULTRASOUND FINDINGS: Ultrasound demonstrates gynecomastia in the retroareolar region of the right breast. There are no suspicious findings in the imaged area. IMPRESSION: There is no mammographic or sonographic evidence of malignancy. BI-RADS Category 2: Benign Interpreting Radiologist: Ray Alcocer M.D. Electronically signed on: 12/03/2024 Franchise Specialist: SAM Transcribe Date/Time: Dec 03 2024 8:13A Dictated by: RAY ALCOCER MD This examination was interpreted and the report reviewed and electronically signed by: RAY ALCOCER MD on Dec 03 2024 9:37AM EST This document has been addended by: RAY ALCOCER MD on Dec 03 2024 9:37AM EST [facility] Radiology Study observation (narrative) [facility] DBT Breast - bilateral diagn ostic for implantOrdered By: Ccf Provider on 12-03-[address] [facility] DIAG W GEOVANNI BILon 2024 [facility] DIAG W GEOVANNI DYLON * * *Final Report* * * * * * SEE BOTTOM OF REPORT FOR ADDENDED TEXT * * * DATE OF EXAM: Dec 03 2024 8:41AM [facility] 0627 - [place] DIAG W GEOVANNI DYLON / PROCEDURE REASON: Subareolar mass of right breast * * * * Physician Interpretation * * * * RESULT: [facility] [address] [place] [address] #[id number] - [facility] DIAG W GEOVANNI DYLON #[id number] - [facility] US BREAST LTD RT HISTORY: 48 year-old patient seen for diagnostic evaluation of a palpable abnormality in the right breast. Patient states no personal history of breast cancer. COMPARISON STUDIES: No prior imaging studies are available for comparison. MAMMOGRAM TECHNIQUE: The study was acquired using full field digital technology and interpreted from soft copy. Digital Breast Tomosynthesis (DBT) images were obtained and used to assist in the interpretation of this examination. MAMMOGRAM FINDINGS: The breasts are almost entirely fatty. There is gynecomastia in the retroareolar region of the right breast. No suspicious masses, calcifications or other abnormalities are seen in either breast. ULTRASOUND TECHNIQUE: Targeted ultrasound of the indicated area was performed. Brooks scale images were saved. ULTRASOUND FINDINGS: Ultrasound demonstrates gynecomastia in the retroareolar region of the right breast. There are no suspicious findings in the imaged area. IMPRESSION: There is no mammographic or sonographic evidence of malignancy. BI-RADS Category 2: Benign Interpreting Radiologist: Ray Alcocer M.D. Electronically signed on: 12/03/2024 Franchise Specialist: SAM Transcribe Date/Time: Dec 03 2024 8:13A Dictated by: RAY ALCOCER MD This examination was interpreted and the report reviewed and electronically signed by: RAY ALCOCER MD on Dec 03 2024 9:37AM EST This document has been addended by: RAY ALCOCER MD on Dec 03 2024 9:37AM EST [id number] Normal [facility] US BREAST LTD RTon 12-03 [facility] Mfuse BREAST LTD RT * * *Final Report* * * DATE OF EXAM: Dec 03 2024 9:11AM [facility] 0594 - [facility] US BREAST LTD RT / PROCEDURE REASON: Subareolar mass of right breast * * * * Physician Interpretation * * * * [facility] [place] [address] #[id number] - [facility] DIAG W GEOVANNI DYLON #[id number] - [facility] US BREAST LTD RT HISTORY: 48 year-old patient seen for diagnostic evaluation of a palpable abnormality in the right breast. Patient states no personal history of breast cancer. COMPARISON STUDIES: No prior imaging studies are available for comparison. MAMMOGRAM TECHNIQUE: The study was acquired using full field digital technology and interpreted from soft copy. Digital Breast Tomosynthesis (DBT) images were obtained and used to assist in the interpretation of this examination. MAMMOGRAM FINDINGS: The breasts are almost entirely fatty. There is gynecomastia in the retroareolar region of the right breast. No suspicious masses, calcifications or other abnormalities are seen in either breast. ULTRASOUND TECHNIQUE: Targeted ultrasound of the indicated area was performed. Brooks scale images were saved. ULTRASOUND FINDINGS: Ultrasound demonstrates gynecomastia in the retroareolar region of the right breast. There are no suspicious findings in the imaged area. IMPRESSION: There is no mammographic or sonographic evidence of malignancy. BI-RADS Category 2: Benign Interpreting Radiologist: Ray Alcocer M.D. Electronically signed on: 12/03/2024 Franchise Specialist: SAM Transcribe Date/Time: Dec 03 2024 9:03A Dictated by : RAY ALCOCER MD This examination was interpreted and the report reviewed and electronically signed by: RAY ALCOCER MD on Dec 03 2024 9:37AM EST [id number] Normal [facility] US Breast - right limitedon 12-03-2024 IMPRESSION: There is no mammographic or sonographic evidence of malignancy. BI-RADS Category 2: Benign Interpreting Radiologist: Ray Alcocer M.D. Electronically signed on: 12/03/2024 Franchise Specialist: SAM Transcribe Date/Time: Dec 03 2024 9:03A Dictated by : RAY ALCOCER MD This examination was interpreted and the report reviewed and electronically signed by: RAY ALCOCER MD on Dec 03 2024 9:37AM EST DIVISION OF RADIOLOGY * * *Final Report* * * DATE OF EXAM: Dec 03 2024 9:11AM U 0594 - [facility] Mfuse BREAST Loomio RT / PROCEDURE REASON: Subareolar mass of right breast * * * * Physician Interpretation * * * * [place] [address] #[id number] - [facility] LESLY OSBORNE #[id number] - [facility] Mfuse BREAST Loomio RT HISTORY: 48 year-old patient seen for diagnostic evaluation of a palpable abnormality in the right breast. Patient states no personal history of breast cancer. COMPARISON STUDIES: No prior imaging studies are available for comparison. MAMMOGRAM TECHNIQUE: The study was acquired using full field digital technology and interpreted from soft copy. Digital Breast Tomosynthesis (DBT) images were obtained and used to assist in the interpretation of this examination. MAMMOGRAM FINDINGS: The breasts are almost entirely fatty. There is gynecomastia in the retroareolar region of the right breast. No suspicious masses, calcifications or other abnormalities are seen in either breast. ULTRASOUND TECHNIQUE: Targeted ultrasound of the indicated area was performed. Brooks scale images were saved. ULTRASOUND FINDINGS: Ultrasound demonstrates gynecomastia in the retroareolar region of the right breast. There are no suspicious findings in the imaged area. DIVISION OF RADIOLOGY Provider, [facility] - 12/03/2024 * * *Final Report* * * DATE OF EXAM: Dec 03 2024 9:11AM WRU 0594 - [facility] Mfuse BREAST Loomio RT / PROCEDURE REASON: Subareolar mass of right breast * * * * Physician Interpretation * * * * [place] [address] #[id number] - [facility] LESLY GALARZA DYLON #[id number] - [facility] Mfuse BREAST Loomio RT HISTORY: 48 year-old patient seen for diagnostic evaluation of a palpable abnormality in the right breast. Patient states no personal history of breast cancer. COMPARISON STUDIES: No prior imaging studies are available for comparison. MAMMOGRAM TECHNIQUE: The study was acquired using full field digital technology and interpreted from soft copy. Digital Breast Tomosynthesis (DBT) images were obtained and used to assist in the interpretation of this examination. MAMMOGRAM FINDINGS: The breasts are almost entirely fatty. There is gynecomastia in the retroareolar region of the right breast. No suspicious masses, calcifications or other abnormalities are seen in either breast. ULTRASOUND TECHNIQUE: Targeted ultrasound of the indicated area was performed. Brooks scale images were saved. ULTRASOUND FINDINGS: Ultrasound demonstrates gynecomastia in the retroareolar region of the right breast. There are no suspicious findings in the imaged area. IMPRESSION IMPRESSION: There is no mammographic or sonographic evidence of malignancy. BI-RADS Category 2: Benign Interpreting Radiologist: Ray Alcocer M.D. Electronically signed on: 12/03/2024 Franchise Specialist: SAM Transcribe Date/Time: Dec 03 2024 9:03A Dictated by : RAY ALCOCER MD This examination was interpreted and the report reviewed and electronically signed by: RAY ALCOCER MD on Dec 03 2024 9:37AM EST [facility] Radiology Study observation (narrative) [facility] US Breast - right limitedOrd ered By: Ccf Provider on 12-03-[address] [facility] B-HCG SerPl-aCncon HCG.beta subunit Qn m[IU]/mL Normal <5.0 [facility] Comment on above: Order Comment: Speci men Type: BLOOD SPECIMEN Ordering Facility: [facility] Address: [facility] [place] [address] Performed By: #### 2 1198-7 #### [facility] CLIA [id number] [address] [facility] CNOVon 11-22-2024 CNOV Office Visit (FAMPWS ) -- BIANCA DELAROSA ([id number]) 1975 M Date Time Provider Department 11/22/24 8:20 AM [facility]ACK[facility] During your visit today, we recorded the following information about you: Pulse Respiration Blood pressure Weight 92/minute 16/minute 120/90 130.6 kg Humberto Jackson MD 11/22/2024 11:01 AM Signed Chief Complaint Patient presents with: Pain: Right nipple pain HPI Bianca Delarosa is a 48 year old male who presents here today for Nipple pain. (Right) Patient has been having right nipple pain. Does feel a nodule under the right nipple. No skin dimpling or nipple discharge. No Fhx of breast cancer. Past medical history, appointments, medications, allergies reviewed. 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 12/07/2022 Substance agreement signed 12/2022, Tox screen done 12/2022 Current use of proton pump inhibitor 09/26/2018 Diabetic eye exam (HCC) 01/27/2017 Last eye exam: 03/05/2019 Diverticulosis 03/31/2014 Dyslipidemia 03/31/2014 Low HDL, High Trigs Elevated antinuclear antibody (JALEEL) level 03/31/2014 Family history of malignant neoplasm of gastrointestinal tract 03/31/2014 Fatty liver 10/28/2024 US: 10/2024 ISABELLA (generalized anxiety disorder) 06/22/2020 GERD without esophagitis 09/26/2018 Hiatal hernia 03/31/2014 History of COVID-19 09/23/20232021, 09/2023 Hx of colonic polyp 03/31/2014 Needs next colonoscopy 08/2022 Lump 11/16/2019 benign left palm Major depressive disorder with single episode, in partial remission ([facility]) 09/26/2018 Migraine without aura and without status migrainosus, not intractable 09/11/2015 Mood disorder ([facility]) 03/31/2014 Multiple thyroid nodules 02/27/[address] Lazaro 03/2018 Multiple thyroid nodules 02/27/2018 US 03/2020 per radiology no further f/u needed.. All benign Biopsy 03/[address] Lazaro. Benign. Obesity, Class II, BMI 35-39.9 10/21/2022 Obstructive sleep apnea syndrome 01/27/2017 On CPAP Other joint derangement, not elsewhere classified, lower leg 03/25/2013 Primary insomnia 07/28/2020 QT prolongation 04/20/[address] [facility] 04/19/2021: Retsof to be benign and related to anti-depressants. No changes needed. TMJ (temporomandibular joint disorder) 03/31/2014 Right side Type 2 diabetes mellitus without complication, without long-term current use of insulin ([facility]) 01/19/2017 Well adult exam 12/17/2014 Last done:11/16/2019 Previous Surgical History PAST SURGICAL HISTORY Procedure Laterality Date APPENDECTOMY HX 2004 ARTHROTOMY W/MENISCUS REPAIR KNEE Right 04/2021 COLONOSCOPY 06/2012 Dr. Corrigan +polyp, repeat 5 yrs COLONOSCOPY 08/30/2022 repeat in 5 years COLONOSCOPY FLX DX W/COLLJ SPEC WHEN PFRMD 08/16/2017 Colonoscopy, repeat 5 yrs, Dr. Bliss PAST SURGICAL HISTORY OF 2009 benign cysts: 1 from head and 2 from neck TONSILLECTOMY AND ADENOIDECTOMY AGE 11/> 1979 TONSILLECTOMY HX Family History FAMILY HISTORY Problem Relation Age of Onset Colon Cancer Father 52 Coronary Artery Disease Father Coronary Artery Disease Mother 60's Hypertension Mother No Known Problems Brother No Known Problems Brother No Known Problems Brother Coronary Artery Disease Maternal Grandmother 60's Stroke Maternal Grandfather Colon Cancer Paternal Uncle 49 Alzheimer's Disease No Family History Prostate Cancer No Family History Breast Cancer No Family History Hyperlipidemia No Family History Kidney Disease No Family History Seizures No Family History Thyroid No Family History No Ocular Disease No Family History Patient Allergies ALLERGIES Allergen Reactions Topamax [Topiramate] Mental Status Change Unable to remember anything Celexa [Citalopram * Other: See Comments uneffective Effexor [Venlafaxin* Other: See Comments Sexual side affect Reglan [Metoclopram* Unknown Zoloft [Sertraline * Other: See Comments drowsy Current Medications Current Outpatient Medications on File Prior to Visit Medication Sig methylphenidate CD (METADATE CD) 20 mg biphasic capsule Take 1 capsule by mouth once daily for 30 days. Blood-Glucose Sensor (FREESTYLE EVERT 3 SENSOR) agnes USE ONE SENSOR EVERY 14 DAY, IDDM, E11.9 sucralfate (CARAFATE) 1 gram tablet Take one tab with lunch and before bed. Fenofibrate 120 mg tab Take 1 tablet by mouth once daily. esomeprazole (NEXIUM) 40 mg capsule Take 1 capsule by mouth two times a day. atorvastatin (LIPITOR) 80 mg tablet Take 1 tablet by mouth once daily. busPIRone (BUSPAR) 15 mg tablet Take one tab by mouth twice a day. doxepin capsule 10 mg Take 1 capsule by mouth daily (more content not included)... Normal [facility]iol [facility] E2 [Mass/Vol] pg/mL Normal <43 [facility] Comment on above: Order Comment: Speci men Type: BLOOD SPECIMEN Ordering Facility: [facility] Address: [address] [place] [address] [place] [address] Performed By: #### 6 768-6, 2132-06, #### [facility] CLIA [id number] [address] [place] [address] [place] FSH SerPl-aCncon 11-22-2024 Follitropin Qn 7.2 m[IU]/mL Normal 1.5-12.4 [facility] Comment on above: Order Comment: Speci men Type: BLOOD SPECIMEN Ordering Facility: [facility] Address: [address] [place] [address] Performed By: #### 6 768-6, 2132-06, #### [facility] CLIA [id number] [address] [place] [address] [place] LH SerPl-aCncon 11-22-2024 Lutropin Qn 3.7 m[IU]/mL Normal 1.7-8.6 [facility] Comment on above: Order Comment: Speci men Type: BLOOD SPECIMEN Ordering Facility: [facility] Address: [address] [place] [address] Performed By: #### 6 768-6, 2132-06, #### [facility] CLIA [id number] [address] [place] [address] [place] Prolactin SerPl-mCncon 11-22 Prolactin [Mass/Vol] 41.2 ng/mL High 4.1-25.1 [facility] Comment on above: Order Comment: Speci men Type: BLOOD SPECIMEN Ordering Facility: [facility] Address: [address] [place] [address] Result Comment: Prol actin test is performed using the [employer] Electrochemiluminescence Immunoassay method. Results obtained with different methods or kits cannot be used interchangeably. Performed By: #### 6 768-6, 2132-06, #### [facility] CLIA [id number] [address] [place] [address] [place] T4 Free SerPl-mCncon 02-14-2 025 Free T4 [Mass/Vol] 1.1 ng/dL Normal 0.9-1.7 [facility] Comment on above: Order Comment: Speci men Type: BLOOD SPECIMEN Ordering Facility: [facility] Address: [address] [place] [address] Performed By: #### 3 016-3, 3024-7, 2986-8 #### [facility] CLIA [id number] [address] [place] [address] [place] TSH SerPl-aCncon 11-22-2024 TSH Qn 1.190 m[IU]/L Normal 0.270-4.200 [facility] Comment on above: Order Comment: Speci men Type: BLOOD SPECIMEN Ordering Facility: [facility] Address: [address] [place] [address] Performed By: #### 3 016-3, 3024-7, 298-8 #### [facility] CLIA [id number] [address] [place] [address] [place] Testost SerPl-mCncon 025 Testosterone [Mass/Vol] 166 ng/dL Low 193-824 [facility] Comment on above: Order Comment: Speci men Type: BLOOD SPECIMEN Ordering Facility: [facility] Address: [address] [place] [address] Result Comment: A te stosterone level in the 193-320 ng/dL range with associated clinical symptoms is considered low and may indicate hypogonadism (from NEJM 2010 363:123-135). Results >320 ng/dL are considered normal. Performed By: #### 3 016-3, 3024-7, 2986-8 #### [facility] CLIA [id number] [address] [place] [address] [place] US Abdomen RUQon 10-27-2024 IMPRESSION: Limited exam. Hepatic steatosis. Franchise Specialist: GORGE Transcribe Date/Time: Oct 26 2024 11:48P Dictated by : LOUISE BOURGEOIS, DO This examination was interpreted and the report reviewed and electronically signed by: LOUISE BOURGEOIS DO on Oct 27 2024 12:05AM [facility] DIVISION OF RADIOLOGY * * *Final Report* * * DATE OF EXAM: Oct 25 2024 7:58AM U 1032 - US ABD RIGHT UPPER QUADRANT / PROCEDURE REASON: Elevated alkaline phosphatase level * * * * Physician Interpretation * * * * EXAMINATION: RIGHT UPPER QUADRANT ULTRASOUND CLINICAL HISTORY: 48 years old Male with Elevated alkaline phosphatase level TECHNIQUE: Sonography of the right upper quadrant was performed. Images were obtained and stored in a permanent archive. MQ: URUQ_2 COMPARISON: Right upper quadrant ultrasound 02/07/2020 RESULT: Limitations: Technically difficult examination due to body habitus and shadowing bowel gas. Pancreas: Normal sonographic appearance of the limited visualized portion. Liver: Echotexture: Normal, homogeneous. Echogenicity: Increased Surface contour: Smooth Lesions: None apparent noting that visualization of the liver was significantly limited. Biliary: No intrahepatic biliary duct dilation. CBD: Poorly visualized measuring approximately 8 mm. Gallbladder: Normal caliber -Contents: No cholelithiasis -Wall: Normal -Other: No pericholecystic fluid. Right Kidney: No hydronephrosis. Ascites: None. DIVISION OF RADIOLOGY Provider, [facility] - 10/27/2024 * * *Final Report* * * DATE OF EXAM: Oct 25 2024 7:58AM U 1032 - US ABD RIGHT UPPER QUADRANT / PROCEDURE REASON: Elevated alkaline phosphatase level * * * * Physician Interpretation * * * * EXAMINATION: RIGHT UPPER QUADRANT ULTRASOUND CLINICAL HISTORY: 48 years old Male with Elevated alkaline phosphatase level TECHNIQUE: Sonography of the right upper quadrant was performed. Images were obtained and stored in a permanent archive. MQ: URUQ_2 COMPARISON: Right upper quadrant ultrasound 02/07/2020 RESULT: Limitations: Technically difficult examination due to body habitus and shadowing bowel gas. Pancreas: Normal sonographic appearance of the limited visualized portion. Liver: Echotexture: Normal, homogeneous. Echogenicity: Increased Surface contour: Smooth Lesions: None apparent noting that visualization of the liver was significantly limited. Biliary: No intrahepatic biliary duct dilation. CBD: Poorly visualized measuring approximately 8 mm. Gallbladder: Normal caliber -Contents: No cholelithiasis -Wall: Normal -Other: No pericholecystic fluid. Right Kidney: No hydronephrosis. Ascites: None. IMPRESSION IMPRESSION: Limited exam. Hepatic steatosis. Franchise Specialist: GORGE Transcribe Date/Time: Oct 26 2024 11:48P Dictated by : LOUISE BOURGEOIS DO This examination was interpreted and the report reviewed and electronically signed by: LOUISE BOURGEOIS DO on Oct 27 2024 12:05AM EST [facility] US Abdomen RUQOrdered By: Leti vila Provider on 10-27-[address] [facility] US ABD RIGHT UPPER QUADRANTo n 10-25-2024 US ABD RIGHT UPPER QUADRANT * * *Final Report* * * DATE OF EXAM: Oct 25 2024 7:58AM WRU 1032 - US ABD RIGHT UPPER QUADRANT / PROCEDURE REASON: Elevated alkaline phosphatase level * * * * Physician Interpretation * * * * EXAMINATION: RIGHT UPPER QUADRANT ULTRASOUND CLINICAL HISTORY: 48 years old Male with Elevated alkaline phosphatase level TECHNIQUE: Sonography of the right upper quadrant was performed. Images were obtained and stored in a permanent archive. MQ: URUQ_2 COMPARISON: Right upper quadrant ultrasound 02/07/2020 RESULT: Limitations: Technically difficult examination due to body habitus and shadowing bowel gas. Pancreas: Normal sonographic appearance of the limited visualized portion. Liver: Echotexture: Normal, homogeneous. Echogenicity: Increased Surface contour: Smooth Lesions: None apparent noting that visualization of the liver was significantly limited. Biliary: No intrahepatic biliary duct dilation. CBD: Poorly visualized measuring approximately 8 mm. Gallbladder: Normal caliber -Contents: No cholelithiasis -Wall: Normal -Other: No pericholecystic fluid. Right Kidney: No hydronephrosis. Ascites: None. IMPRESSION: Limited exam. Hepatic steatosis. Franchise Specialist: GORGE Transcribe Date/Time: Oct 26 2024 11:48P Dictated by : LOUISE BOURGEOIS DO This examination was interpreted and the report reviewed and electronically signed by: LOUISE BOURGEOIS DO on Oct 27 2024 12:05AM EST [id number] Normal [facility] US Abdomen RUQon 10-25-2024 Radiology Study observation (narrative) [facility] CNPPolly 10-16-2024 [facility] -- BIANCA DELAROSA ([id number]) 1975 M [facility] Date Time Provider Department 10/16/24 HUMBERTO JACKSON During your visit today, we recorded the following information about you: Humberto Jackson MD 10/16/2024 8:28 PM Signed Let patient know the test for a bacteria in his stomach was negative. His pancreatic enzymes were normal. His liver functions were ok but his Alk Phos was elevated. See if he had been fasting and if not want to recheck lab when he has been fasting. His lipid panel showed his Trigs are still elevated but improved at 377 ((goal<150 and were 1,046), HDL low at 22 (goal>40) and LDL very good at 20. I'm going to increase his fenofibrate to 120 mg once a day. Script sent. His A1c is still high at 11.7. I don't see that he has any f/u appt with Endo and needs to do this. Looks like he canceled his appt in 04/2024 and never rescheduled. Dannielle Herr MA 10/17/2024 11:13 AM Signed Patient informed and verbalized understanding. He states he was fasting for these labs. STACY Oliva Jeffrey A, MD 10/17/2024 9:10 PM Signed Let patient know I have placed some additional labs to work up the elevated alk phos and want to get a US of his gal bladder to see if he has stones. Order placed. Tam Daugherty MA 10/18/2024 9:00 AM Signed Patient notified and voiced understanding. Please assist patient to schedule US. STACY Cruz Jeffrey A, MD 10/28/2024 4:51 PM Signed Let patient know the US was ok except it showed fatty lover. This can progress over time to develop into liver scaring and this is cirrhosis which can lead to and increased risk of liver cancer. It is imperative to work on weight loss and decreased fat in the diet. Once the labs are done I can determine if any further w/u needed. Emma Martínez RN 10/28/2024 7:00 PM Signed Pt called and is notified of providers results and instructions. Pt voices understanding. Emma Martínez RN Allergies As of Date: 10/16/2024 Noted Allergy Reaction TOPAMAX (TOPIRAMATE) 02/04/2014 1 - Mental Status Change Comments: Unable to remember anything CELEXA (CITALOPRAM HYDROBROMIDE) 10/22/2014 14 - Other: See Comments Comments: uneffective EFFEXOR (VENLAFAXINE ANALOGUES) 10/22/2014 14 - Other: See Comments Comments: Sexual side affect REGLAN (METOCLOPRAMIDE HCL) 01/24/2007 16 - Unknown ZOLOFT (SERTRALINE HCL) 10/22/2014 14 - Other: See Comments Comments: drowsy Date Reviewed: 10/14/2024 Reviewed by: Humberto Jackson MD - Fully Assessed Reason for Visit: Results [95] Primary Visit Diagnosis:Elevated alkaline phosphatase level [R74.8] Other Visit Diagnosis:Fatty liver [K76.0] Order(s):Fenofibrate 120 mg tabTake 1 tablet by mouth once daily.Disp: 90 tabletRfl: 1 ALK PHOS ISOENZYM BL [SQALKISO] Order #: [id number] FUTURE MITOCHONDRIAL M2 IGG SERUM [SQMITOS] Order #: [id number] FUTURE US ABD RIGHT UPPER QUADRANT [6136008] Order #: [id number] FUTURE GGT [SQGGT] Order #: [id number] FUTURE Prescriptions as of 10/28/2024 - sucralfate (CARAFATE) 1 gram tablet Take one tab with lunch and before bed. - Fenofibrate 120 mg tab Take 1 tablet by mouth once daily. - esomeprazole (NEXIUM) 40 mg capsule Take 1 capsule by mouth two times a day. - atorvastatin (LIPITOR) 80 mg tablet Take 1 tablet by mouth once daily. - busPIRone (BUSPAR) 15 mg tablet Take one tab by mouth twice a day. - doxepin capsule 10 mg Take 1 capsule by mouth daily at bedtime. - methylphenidate CD (METADATE CD) 20 mg biphasic capsule Take 1 capsule by mouth once daily for 30 days. - DULoxetine (CYMBALTA) 60 mg capsule Take 1 capsule by mouth once daily. - DULoxetine (CYMBALTA) 30 mg capsule Take 1 capsule by mouth once daily. - OLANZapine (ZYPREXA) 5 mg tablet Take 1 tablet by mouth daily at bedtime. - TRESIBA FLEXTOUCH U-100 100 unit/mL (3 mL) injection pen Inject 60 units subcutaneous daily at bedtime. Dispense 60 mL for 90 day supply. - HUMALOG KWIKPEN INSULIN 100 unit/mL Inject subcutaneously 20 units breakfast, 20 units lunch, 20 units dinner plus sliding scale up to 82 units daily. Dispense 75 mL for a 90 day supply. - Insulin Wykoff, Disposable, (DROPLET PEN NEEDLE) 31 gauge x /16 Use 4 PEN NEEDLES to inject MEDICATION subcutaneously daily - metFORMIN (GLUCOPHAGE) 500 mg tablet Take 2 tablets by mouth two times a day with meals. - Blood-Glucose Sensor (FREESTYLE EVERT 3 SENSOR) agnes Use one sensor every 14 day, IDDM, E11.9 - zonisamide (ZONEGRAN) 25 mg capsule Take 1 capsule by mouth once daily. - multivitamin tablet Take 1 tablet by mouth once daily. Problem List As Of Date 10/16/2024 Noted Resolved Other joint derangement, not elsewhere classifi*03/25/2013 Agitation [R45.1] 03/31/2014 Allergic rhinitis [J30.9] 03/31/2014 Elevated antinuclear antibody (JALEEL) level [R (more content not included)... Normal [facility] Amylase SerPl-cCncon 025 Amylase [Catalytic activity/Vol] 18 U/L Low 30-104 [facility] Comment on above: Order Comment: Speci men Type: BLOOD SPECIMEN Ordering Facility: [facility] Address: [address] [place] [address] Performed By: #### 6 768-6, 9852-9, 03320-3 #### [facility] CLIA [id number] [address] [place] [address] [place] CNOVon 10-14-2024 CNOV Office Visit (FAMPWS ) -- BIANCA DELAROSA ([id number]) 1975 M [facility] Date Time Provider Department 10/14/24 1:40 PM HUMBERTO JACKSON During your visit today, we recorded the following information about you: Pulse Respiration Blood pressure Weight 94/minute 16/minute 118/80 130.6 kg Humberto Jackson MD 10/14/2024 9:24 PM Signed Chief Complaint Patient presents with: GERD HPI Bianca Delarosa is a 48 year old male who presents here today for increased GERD.. Patient has been noting increased epigastric burning and up into the chest. Has been waking up at night with GERD. He is taking the Nexium 40 mg a day and has been trying to drink more water.. Belly is churning a lot but no nausea or vomiting. Waking up with a sour taste in the morning. Denied new life style changes that would increase acid reflux. No RUQ pain after eating. Past medical history, appointments, medications, allergies reviewed. 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 12/07/2022 Substance agreement signed 12/2022, Tox screen done 12/2022 Current use of proton pump inhibitor 09/26/2018 Diabetic eye exam (HCC) 01/27/2017 Last eye exam: 03/05/2019 Diverticulosis 03/31/2014 Dyslipidemia 03/31/2014 Low HDL, High Trigs Elevated antinuclear antibody (JALEEL) level 03/31/2014 Family history of malignant neoplasm of gastrointestinal tract 03/31/2014 ISABELLA (generalized anxiety disorder) 06/22/2020 GERD without esophagitis 09/26/2018 Hiatal hernia 03/31/2014 History of COVID-19 09/23/20232021, 09/2023 Hx of colonic polyp 03/31/2014 Needs next colonoscopy 08/2022 Lump 11/16/2019 benign left palm Major depressive disorder with single episode, 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 Lazaro 03/2018 Multiple thyroid nodules 02/27/2018 US 03/2020 per radiology no further f/u needed.. All benign Biopsy 03/2018 Dr. Lazaro. Benign. Obesity, Class II, BMI 35-39.9 10/21/2022 Obstructive sleep apnea syndrome 01/27/2017 On CPAP Other joint derangement, not elsewhere classified, lower leg 03/25/2013 Primary insomnia 07/28/2020 QT prolongation 04/20/2021 Seen [facility] 04/19/2021: Retsof to be benign and related to anti-depressants. No changes needed. TMJ (temporomandibular joint disorder) 03/31/2014 Right side Type 2 diabetes mellitus without complication, without long-term current use of insulin ([facility]) 01/19/2017 Well adult exam 12/17/2014 Last done:11/16/2019 Previous Surgical History PAST SURGICAL HISTORY Procedure Laterality Date APPENDECTOMY HX 2003 ARTHROTOMY W/MENISCUS REPAIR KNEE Right 04/2021 COLONOSCOPY 06/2012 Dr. Corrigan +polyp, repeat 5 yrs COLONOSCOPY 08/30/2022 repeat in 5 years COLONOSCOPY FLX DX W/COLLJ SPEC WHEN PFRMD 08/16/2017 Colonoscopy, repeat 5 yrs, Dr. Bliss PAST SURGICAL HISTORY OF 2009 benign cysts: 1 from head and 2 from neck TONSILLECTOMY AND ADENOIDECTOMY AGE 11/> 1979 TONSILLECTOMY HX Family History FAMILY HISTORY Problem Relation Age of Onset Colon Cancer Father 52 Coronary Artery Disease Father Coronary Artery Disease Mother 60's Hypertension Mother No Known Problems Brother No Known Problems Brother No Known Problems Brother Coronary Artery Disease Maternal Grandmother 60's Stroke Maternal Grandfather Colon Cancer Paternal Uncle 49 Alzheimer's Disease No Family History Prostate Cancer No Family History Breast Cancer No Family History Hyperlipidemia No Family History Kidney Disease No Family History Seizures No Family History Thyroid No Family History No Ocular Disease No Family History Patient Allergies ALLERGIES Allergen Reactions Topamax [Topiramate] Mental Status Change Unable to remember anything Celexa [Citalopram * Other: See Comments uneffective Effexor [Venlafaxin* Other: See Comments Sexual side affect Reglan [Metoclopram* Unknown Zoloft [Sertraline * Other: See Comments drowsy Current Medications Current Outpatient Medications on File Prior to Visit Medication Sig atorvastatin (LIPITOR) 80 mg tablet Take 1 tablet by mouth once daily. busPIRone (BUSPAR) 15 mg tablet Take one tab by mouth twice a day. doxepin capsule 10 mg Take 1 capsule by mouth daily at bedtime. methylphenidate CD (METADATE CD) 20 mg biphasic capsule Take 1 capsule by mouth once daily for 30 days. DULoxetine (CYMBALTA) 60 mg capsule Take 1 capsule by mouth once daily. esomeprazole (NEXIUM) 40 mg capsule Take 1 capsule (more content not included)... Normal [facility] H. pylori IgG IA Qlon 2024 H. PYLORI IGG, QUAL Negative Normal Negative [facility] Comment on above: Order Comment: Speci men Type: BLOOD SPECIMEN Ordering Facility: [facility] Address: [address] [place] [address] Result Comment: Megha ot exclude H. pylori infection if the specimen collected 3-4 weeks after onset of symptoms. Performed By: #### 6 768-6, 2132-06, #### [facility] CLIA [id number] [address] [place] [address] [place] HbA1c (Bld)on 10-14-2024 Average glucose Estimated from glycated hemoglobin (Bld) [Mass/Vol] 289 mg/dL Normal [facility] Comment on above: Order Comment: Speci men Type: BLOOD SPECIMEN Ordering Facility: [facility] Address: [address] [place] [address] Result Comment: eAG: (Estimated average glucose) is a calculated value from HgbA1c and is senior customer service representative of the average blood glucose level in the last 2-3 month period. Performed By: #### 6 768-6, 21319, #### [facility] CLIA [id number] [address] [place] [address] [place] HbA1c (Bld) [Mass fraction] 11.7 % High 4.3-5.6 [facility] Comment on above: Order Comment: Catherine hendrix Type: BLOOD SPECIMEN Ordering Facility: [facility] Address: [address] [place] [address] Result Comment: Luis [place] Diabetes Association guidelines indicate that patients with HgbA1c in the range 5.7-6.4% are at increased risk for development of diabetes, and intervention by lifestyle modification may be beneficial. HgbA1c greater or equal to 6.5% is considered diagnostic of diabetes. Performed By: #### 6 768-6, 2131-9, 76603-0 #### [facility] CLIA [id number] [address] [place] [address] [place] Hepatic function 2000 panelo n 10-14-2024 Albumin [Mass/Vol] 4.3 g/dL Normal 3.9-4.9 [facility] Comment on above: Order Comment: Catherine hendrix Type: BLOOD SPECIMEN Ordering Facility: [facility] Address: [address] [place] [address] Performed By: #### 6 768-6, 9, 57338-5 #### [facility] CLIA [id number] [address] [place] [address] [place] ALP [Catalytic activity/Vol] 182 U/L High 38-113 [facility] Comment on above: Order Comment: Catherine hendrix Type: BLOOD SPECIMEN Ordering Facility: [facility] Address: [address] [place] [address] Performed By: #### 6 768-6, 2131-9, 15984-4 #### [facility] CLIA [id number] [address] [place] [address] [place] ALT [Catalytic activity/Vol] 17 U/L Normal 10-54 [facility] Comment on above: Order Comment: Catherine hendrix Type: BLOOD SPECIMEN Ordering Facility: [facility] Address: [address] [place] [address] Performed By: #### 6 768-6, 2132-06, #### [facility] CLIA [id number] [address] [place] [address] [place] AST [Catalytic activity/Vol] 22 U/L Normal 14-40 [facility] Comment on above: Order Comment: Speci men Type: BLOOD SPECIMEN Ordering Facility: [facility] Address: [address] [place], [place] [address] Performed By: #### 6 768-6, 2132-06, #### [facility] CLIA [id number] [address] [place] [address] [place] Bilirubin [Mass/Vol] 0.2 mg/dL Normal 0.2-1.3 [facility] Comment on above: Order Comment: Speci men Type: BLOOD SPECIMEN Ordering Facility: [facility] Address: [address] [place] [address] Performed By: #### 6 768-6, 2132-06, #### [facility] CLIA [id number] [address] [place] [address] [place] Bilirubin.conjugated [Mass/Vol] mg/dL Normal <0.2 [facility] Comment on above: Order Comment: Speci men Type: BLOOD SPECIMEN Ordering Facility: [facility] Address: [address] [place] [address] Performed By: #### 6 768-6, 2132-06, #### [facility] CLIA [id number] [address] [place] [address] [place] Protein [Mass/Vol] 6.9 g/dL Normal 6.3-8.0 [facility] Comment on above: Order Comment: Speci men Type: BLOOD SPECIMEN Ordering Facility: [facility] Address: [address] [place] [address] Performed By: #### 6 768-6, 2132-06, #### [facility] CLIA [id number] [facility] [place] [address] [place] [facility] [place] LIPID PANEL, NONFASTINGon Cholesterol [Mass/Vol] 117 mg/dL Normal <200 [facility] Comment on above: Order Comment: Laytoni men Type: BLOOD SPECIMEN Ordering Facility: [facility] Address: [address] [place] [address] Result Comment: <200 mg/dL, Desirable 200-239 mg/dL, Borderline high >239 mg/dL, High Performed By: #### 6 768-6, 2132-06, #### [facility] CLIA [id number] [address] [place] [address] [place] HDL CHOLESTEROL, NF 22 mg/dL Low >39 [facility] Comment on above: Order Comment: aLytoni men Type: BLOOD SPECIMEN Ordering Facility: [facility] Address: [address] [place] [address] Result Comment: 40-5 9 mg/dL, Acceptable >59 mg/dL, High: Negative risk factor for coronary heart disease <40 mg/dL, Low: Positive risk factor for coronary heart disease Performed By: #### 6 768-6, 2132-06, #### [facility] CLIA [id number] [address] [place] [address] [place] LDL CHOLESTEROL, NF 20 mg/dL Normal <100 [facility] Comment on above: Order Comment: Speci men Type: BLOOD SPECIMEN Ordering Facility: [facility] Address: [address] [place] [address] Result Comment: <100 mg/dL, Optimal 100-129 mg/dL, Near optimal/above optimal 130-159 mg/dL, Borderline high 160-189 mg/dL, High >189 mg/dL, Very high Secondary prevention optimal LDL Cholesterol levels are recommended to be < 70 mg/dL Performed By: #### 6 768-6, 2132-06, #### [facility] CLIA [id number] [address] [place] [address] [place] LDL/HDL RATIO, NF 0.91 mg/dL Normal <2.54 [facility] Comment on above: Order Comment: Catherine hendrix Type: BLOOD SPECIMEN Ordering Facility: [facility] Address: [address] [place] [address] Result Comment: Refe rence: 1. National Cholesterol Education Program ATP III Guideline At-A-Glance Quick Desk Reference: National Heart, Lung, and Blood [place]. National Institutes of Health. 2001: NIH Publication No. 01-3305. 2. An International Atherosclerosis Society position paper: global recommendations for the management of dyslipidemia: executive summary, Atherosclerosis. 2014: 232(2):410-413. Performed By: #### 6 768-6, 2132-06, #### [facility] CLIA [id number] [address] [place] [address] [place] NON HDL CHOL, NF 95 mg/dL Normal <130 [facility] Comment on above: Order Comment: Catherine hendrix Type: BLOOD SPECIMEN Ordering Facility: [facility] Address: [address] [place] [address] Result Comment: <130 mg/dL, Optimal 130-159 mg/dL, Near optimal/above optimal 160-189 mg/dL, Borderline high 190-219 mg/dL, High >219 mg/dL, Very high Secondary prevention optimal non HDL Cholesterol levels are recommended to be <100 mg/dL Performed By: #### 6 768-6, 2132-06, #### [facility] CLIA [id number] [address] [place], [place] [address] [place] T CHOL/HDL RATIO NF 5.32 mg/dL High <5.10 [facility] Comment on above: Order Comment: Catherine hendrix Type: BLOOD SPECIMEN Ordering Facility: [facility] Address: [address] [place] [address] Performed By: #### 6 768-6, 2132-06, #### [facility] CLIA [id number] [address] [place] [address] [place] TRIGLYCERIDES, NF 377 mg/dL High <150 [facility] Comment on above: Order Comment: Speci men Type: BLOOD SPECIMEN Ordering Facility: [facility] Address: [address] [place] [address] Result Comment: <150 mg/dL, Normal 150-199 mg/dL, Borderline high 200-499 mg/dL, High >499 mg/dL, Very high Performed By: #### 6 768-6, 2132-06, 31312-9 #### [facility] CLIA [id number] [address] [place] [address] [place] VLDL CHOLESTEROL, NF 75 mg/dL High <30 [facility] Comment on above: Order Comment: Speci men Type: BLOOD SPECIMEN Ordering Facility: [facility] Address: [address] [place] [address] Performed By: #### 6 768-6, 2132-06, 27187-5 #### [facility] CLIA [id number] [address] [place] [address] [place] Lipase SerPl-cCncon 10-14-19 25 Lipase [Catalytic activity/Vol] 31 U/L Normal 16-61 [facility] Comment on above: Order Comment: Speci men Type: BLOOD SPECIMEN Ordering Facility: [facility] Address: [address] [place] [address] Performed By: #### 6 768-6, 2132-06, 50823-4 #### [facility] CLIA [id number] [address] [place] [address] [place] CNOVon 09-17-2024 CNOV Office Visit (FAMPWS ) -- BIANCA DELAROSA ([id number]) 1975 M [facility] Date Time Provider Department 09/17/24 9:20 AM HUMBERTO JACKSON During your visit today, we recorded the following information about you: Pulse Respiration Blood pressure Weight 90/minute 16/minute 114/78 131.1 kg Humberto Jackson MD 09/17/2024 1:37 PM Signed Chief Complaint Patient presents with: Follow Up HPI Bianca Delarosa is a 48 year old male who presents here today for 4 week follow up Depression/Anxiety. Patient with hx of DM 2, hyperlipidemia, GERD, mood disorder, thyroid nodules, allergies, depression, migraines, insomnia, MIKE as well as those reviewed and addressed below and in ROS Last visit we did increase his methylphenidate CD 20 mg and we also increased his Cymbalta for a total of 90 mg daily. Since these changes he is feeling much better in regards to his mood and concentration. His has told him he is doing well. No notable side affects and has lost some weight. Office visit - 08/19/2024 Depression/ADHD patient has a Hx of depression and anxiety and is currently taking buspar 15 mg BID, cymbalta 60 mg a day and Olanzapine 5 mg a day. Feels like his anxiety is ok. He just feels that at any given moment he could burst out crying. His feels his concentration is not as good as it had been. He is currently on methylphenidate CD 10 mg a day. He does not feel that the lack of focus may be contributing to the depression symptoms. He is also more easily agitated. No suicidal or homicidal thoughts. Patient says work is going ok. Personal life is doing ok and his daughter who is 13 is doing well. Past medical history, appointments, medications, allergies reviewed. 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 12/07/2022 Substance agreement signed 12/2022, Tox screen done 12/2022 Current use of proton pump inhibitor 09/26/2018 Diabetic eye exam ([facility]) 01/27/2017 Last eye exam: 03/05/2019 Diverticulosis 03/31/2014 Dyslipidemia 03/31/2014 Low HDL, High Trigs Elevated antinuclear antibody (JALEEL) level 03/31/2014 Family history of malignant neoplasm of gastrointestinal tract 03/31/2014 ISABELLA (generalized anxiety disorder) 06/22/2020 GERD without esophagitis 09/26/2018 Hiatal hernia 03/31/2014 History of COVID-19 09/23/20232021, 09/2023 Hx of colonic polyp 03/31/2014 Needs next colonoscopy 08/2022 Lump 11/16/2019 benign left palm Major depressive disorder with single episode, in partial remission ([facility]) 09/26/2018 Migraine without aura and without status migrainosus, not intractable 09/11/2015 Mood disorder ([facility]) 03/31/2014 Multiple thyroid nodules 02/27/[address] Lazaro 03/2018 Multiple thyroid nodules 02/27/2018 US 03/2020 per radiology no further f/u needed.. All benign Biopsy 03/[address] Lazaro. Benign. Obesity, Class II, BMI 35-39.9 10/21/2022 Obstructive sleep apnea syndrome 01/27/2017 On CPAP Other joint derangement, not elsewhere classified, lower leg 03/25/2013 Primary insomnia 07/28/2020 QT prolongation 04/20/2021 Seen [facility] 04/19/2021: Retsof to be benign and related to anti-depressants. No changes needed. TMJ (temporomandibular joint disorder) 03/31/2014 Right side Type 2 diabetes mellitus without complication, without long-term current use of insulin ([facility]) 01/19/2017 Well adult exam 12/17/2014 Last done:11/16/2019 Previous Surgical History PAST SURGICAL HISTORY Procedure Laterality Date APPENDECTOMY HX 2004 ARTHROTOMY W/MENISCUS REPAIR KNEE Right 04/2021 COLONOSCOPY 06/2012 Dr. Corrigan +polyp, repeat 5 yrs COLONOSCOPY 08/30/2022 repeat in 5 years COLONOSCOPY FLX DX W/COLLJ SPEC WHEN PFRMD 08/16/2017 Colonoscopy, repeat 5 yrs, Dr. Bliss PAST SURGICAL HISTORY OF 2009 benign cysts: 1 from head and 2 from neck TONSILLECTOMY AND ADENOIDECTOMY AGE 11/> 1979 TONSILLECTOMY HX Family History FAMILY HISTORY Problem Relation Age of Onset Colon Cancer Father 52 Coronary Artery Disease Father Coronary Artery Disease Mother 60's Hypertension Mother No Known Problems Brother No Known Problems Brother No Known Problems Brother Coronary Artery Disease Maternal Grandmother 60's Stroke Maternal Grandfather Colon Cancer Paternal Uncle 49 Alzheimer's Disease No Family History Prostate Cancer No Family History Breast Cancer No Family History Hyperlipidemia No Family History Kidney Disease No Family History Seizures No Family History Thyroid No Family History No Ocular Disease No Family History Patient Allergies ALLERGIES Allergen Reactions Topamax [Topir (more content not included)... Normal [facility] CNTHERAPYon 08-26-2024 CNTHERAPY OT/PT/Speech Visit ( PTWS) -- BIANCA DELAROSA ([id number]) 1975 M [facility] Date Time Provider Department 08/26/24 10:30 AM STORM PATEL PTWS Date Time Provider Department Center 08/26/2024 10:30 AM [id number], BRENT PTWS Irina Sharma Reason for Visit: PT Discharge [752] Physical Therapy [503] Primary Visit Diagnosis:Acute pain of right shoulder [M25.511] Allergies As of Date: 08/26/2024 Noted Allergy Reaction TOPAMAX (TOPIRAMATE) 02/04/2014 1 - Mental Status Change Comments: Unable to remember anything CELEXA (CITALOPRAM HYDROBROMIDE) 10/22/2014 14 - Other: See Comments Comments: uneffective EFFEXOR (VENLAFAXINE ANALOGUES) 10/22/2014 14 - Other: See Comments Comments: Sexual side affect REGLAN (METOCLOPRAMIDE HCL) 01/24/2007 16 - Unknown ZOLOFT (SERTRALINE HCL) 10/22/2014 14 - Other: See Comments Comments: drowsy Date Reviewed: 08/19/2024 Reviewed by: Humberto Jackson MD - Fully Assessed Prescriptions as of 08/26/2024 - DULoxetine (CYMBALTA) 60 mg capsule Take 1 capsule by mouth once daily. - esomeprazole (NEXIUM) 40 mg capsule Take 1 capsule by mouth once daily. - Fenofibrate (LOFIBRA) 54 mg tablet Take 1 tablet by mouth once daily. - methylphenidate CD (METADATE CD) 20 mg biphasic capsule Take 1 capsule by mouth once daily for 30 days. - DULoxetine (CYMBALTA) 30 mg capsule Take 1 capsule by mouth once daily. - OLANZapine (ZYPREXA) 5 mg tablet Take 1 tablet by mouth daily at bedtime. - doxepin capsule 10 mg Take 1 capsule by mouth daily at bedtime. - atorvastatin (LIPITOR) 80 mg tablet Take 1 tablet by mouth once daily. - TRESIBA FLEXTOUCH U-100 100 unit/mL (3 mL) injection pen Inject 60 units subcutaneous daily at bedtime. Dispense 60 mL for 90 day supply. - HUMALOG KWIKPEN INSULIN 100 unit/mL Inject subcutaneously 20 units breakfast, 20 units lunch, 20 units dinner plus sliding scale up to 82 units daily. Dispense 75 mL for a 90 day supply. - busPIRone (BUSPAR) 15 mg tablet Take one tab by mouth twice a day. - Insulin Wykoff, Disposable, (DROPLET PEN NEEDLE) 31 gauge x 3/16 Use 4 PEN NEEDLES to inject MEDICATION subcutaneously daily - metFORMIN (GLUCOPHAGE) 500 mg tablet Take 2 tablets by mouth two times a day with meals. - Blood-Glucose Sensor (FREESTYLE EVERT 3 SENSOR) agnes Use one sensor every 14 day, IDDM, E11.9 - zonisamide (ZONEGRAN) 25 mg capsule Take 1 capsule by mouth once daily. - multivitamin tablet Take 1 tablet by mouth once daily. Normal [facility] CNOVon 08-19-2024 CNOV Office Visit (FAMPWS ) -- BIANCA DELAROSA ([id number]) 1975 [address] [facility] Date Time Provider Department 08/19/24 3:00 PM HUMBETRO JACKSON During your visit today, we recorded the following information about you: Pulse Respiration Blood pressure Weight 86/minute 16/minute 128/84 132.9 kg Humberto Jackson MD 08/19/2024 3:38 PM Signed Chief Complaint Patient presents with: Follow Up HPI Bianca Delarosa is a 48 year old male who presents here today for medication follow up. Patient with hx of DM 2, hyperlipidemia, GERD, mood disorder, thyroid nodules, allergies, depression, migraines, insomnia, MIKE as well as those reviewed and addressed below and in ROS 0 Result Notes 1 HM Topic Component Ref Range AND Units 1 mo ago (10/18/23) 5 mo ago (07/07/23) 10 mo ago (01/27/23) 1 yr ago (10/21/22) 1 yr ago (03/04/22) Hemoglobin A1C (POCT) 4.2 - 5.6 % 10.1 Abnormal 11.1 Abnormal CM 11.0 Abnormal CM 11.2 Abnormal CM 10.5 Abnormal CM patient has a Hx of depression and anxiety and is currently taking buspar 15 mg BID, cymbalta 60 mg a day and Olanzapine 5 mg a day. Feels like his anxiety is ok. He just feels that at any given moment he could burst out crying. His feels his concentration is not as good as it had been. He is currently on methylphenidate CD 10 mg a day. He does not feel that the lack of focus may be contributing to the depression symptoms. He is also more easily agitated. No suicidal or homicidal thoughts. Patient says work is going ok. Personal life is doing ok and his daughter who is 13 is doing well. Past medical history, appointments, medications, allergies reviewed. 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 12/07/2022 Substance agreement signed 12/2022, Tox screen done 12/2022 Current use of proton pump inhibitor 09/26/2018 Diabetic eye exam ([facility]) 01/27/2017 Last eye exam: 03/05/2019 Diverticulosis 03/31/2014 Dyslipidemia 03/31/2014 Low HDL, High Trigs Elevated antinuclear antibody (JALEEL) level 03/31/2014 Family history of malignant neoplasm of gastrointestinal tract 03/31/2014 ISABELLA (generalized anxiety disorder) 06/22/2020 GERD without esophagitis 09/26/2018 Hiatal hernia 03/31/2014 History of COVID-19 09/23/20232021, 09/2023 Hx of colonic polyp 03/31/2014 Needs next colonoscopy 08/2022 Lump 11/16/2019 benign left palm Major depressive disorder with single episode, 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 Lazaro 03/2018 Multiple thyroid nodules 02/27/2018 US 03/2020 per radiology no further f/u needed.. All benign Biopsy 03/[address] Lazaro. Benign. Obesity, Class II, BMI 35-39.9 10/21/2022 Obstructive sleep apnea syndrome 01/27/2017 On CPAP Other joint derangement, not elsewhere classified, lower leg 03/25/2013 Primary insomnia 07/28/2020 QT prolongation 04/20/2021 Seen [facility] 04/19/2021: Retsof to be benign and related to anti-depressants. No changes needed. TMJ (temporomandibular joint disorder) 03/31/2014 Right side Type 2 diabetes mellitus without complication, without long-term current use of insulin ([facility]) 01/19/2017 Well adult exam 12/17/2014 Last done:11/16/2019 Previous Surgical History PAST SURGICAL HISTORY Procedure Laterality Date APPENDECTOMY HX 2004 ARTHROTOMY W/MENISCUS REPAIR KNEE Right 04/2021 COLONOSCOPY 06/2012 Dr. Corrigan +polyp, repeat 5 yrs COLONOSCOPY 08/30/2022 repeat in 5 years COLONOSCOPY FLX DX W/COLLJ SPEC WHEN PFRMD 08/16/2017 Colonoscopy, repeat 5 yrs, Dr. Bliss PAST SURGICAL HISTORY OF 2009 benign cysts: 1 from head and 2 from neck TONSILLECTOMY AND ADENOIDECTOMY AGE 11/> 1979 TONSILLECTOMY HX Family History FAMILY HISTORY Problem Relation Age of Onset Colon Cancer Father 52 Coronary Artery Disease Father Coronary Artery Disease Mother 60's Hypertension Mother No Known Problems Brother No Known Problems Brother No Known Problems Brother Coronary Artery Disease Maternal Grandmother 60's Stroke Maternal Grandfather Colon Cancer Paternal Uncle 49 Alzheimer's Disease No Family History Prostate Cancer No Family History Breast Cancer No Family History Hyperlipidemia No Family History Kidney Disease No Family History Seizures No Family History Thyroid No Family History No Ocular Disease No Family History Patient Allergies ALLERGIES Allergen Reactions Topamax [Topiramate] Mental Status Change Unable to remember anything Celexa [Citalo (more content not included)... Normal [facility] PAIN PANEL, UR QUANTon 08-19 7-Jqcqlpqxcv-9,5-Dime thyl-3,3-Diphenylpyrr olidine (EDDP) Confirm (U) [Mass/Vol] <6 Normal <6 [facility] Comment on above: Order Comment: Speci men Type: URINE SPECIMENOrdering Facility: [facility] Address: [address] [place] [address] Result Comment: EDDP is a metabolite of methadone. Performed By: #### L [id number] ####[facility] LABCL[facility] [id number] [place] [address] [place] 6-Monoacetylmorphine (6-FIGUEROA) (U) [Mass/Vol] <5 Normal <5 [facility] Comment on above: Order Comment: Speci men Type: URINE SPECIMENOrdering Facility: [facility] Address: [address] [place] [address] Result Comment: 6-MA M (6-monoacetylmorphine, also known as 6-acetylmorphine) is a unique metabolite of heroin. Presence of 6-FIGUEROA indicates use of heroin. 6-FIGUEROA is further metabolized to morphine and absence of 6-FIGUEROA does not rule out the use of heroin. Performed By: #### L [id number] ####[facility] [id number] [place] [address] [place] Amphetamine Confirm (U) [Mass/Vol] <5 Normal <5 [facility] Comment on above: Order Comment: Speci men Type: URINE SPECIMENOrdering Facility: [facility] Address: [address] [place] [address] Performed By: #### L [id number] ####[facility] [id number] [place] [address] [place] Benzoylecgonine Confirm (U) [Mass/Vol] <24 Normal <24 [facility] Comment on above: Order Comment: Speci men Type: URINE SPECIMENOrdering Facility: [facility] Address: [address] [place] [address] Result Comment: Horacio oylecgonine is a metabolite of cocaine. Performed By: #### L [id number] ####[facility] [id number] [place] [address] [place] Buprenorphine (U) [Mass/Vol] <20 Normal <20 [facility] Comment on above: Order Comment: Speci men Type: URINE SPECIMENOrdering Facility: [facility] Address: [address] [place] [address] Performed By: #### L [id number] ####[facility] [id number] [place] [address] [place] Cannabinoids Confirm (U) [Mass/Vol] <16 Normal <16 [facility] Comment on above: Order Comment: Speci men Type: URINE SPECIMENOrdering Facility: [facility] Address: [address] [place] [address] Result Comment: Tetr ahydrocannabinol carboxylic acid (THCA) is a metabolite of dgrmz-5-jxxlwusieiemjhjnwgyw which is the main active component of marijuana. Performed By: #### L [id number] ####[facility] [id number] [place] [address] [place] Codeine Confirm (U) [Mass/Vol] <11 Normal <11 [facility] Comment on above: Order Comment: Speci men Type: URINE SPECIMENOrdering Facility: [facility] Address: [address] [place], [place] [address] Performed By: #### L [id number] ####[facility] LABIA [id number] [address] [place] Dihydrocodeine Confirm (U) [Mass/Vol] <5 Normal <5 [facility] Comment on above: Order Comment: Speci men Type: URINE SPECIMENOrdering Facility: [facility] Address: [address] [place] [address] Performed By: #### L [id number] ####[facility] LABIA [id number] [place] [address] [place] fentaNYL Confirm (U) [Mass/Vol] <6 Normal <6 [facility] Comment on above: Order Comment: Speci men Type: URINE SPECIMENOrdering Facility: [facility] Address: [address] [place] [address] Performed By: #### L [id number] ####[facility], INCIA [id number] [address] [place] HYDROcodone Confirm (U) [Mass/Vol] <8 Normal <8 [facility] Comment on above: Order Comment: Speci men Type: URINE SPECIMENOrdering Facility: [facility] Address: [address] [place] [address] Result Comment: Hydr ocodone is a metabolite of dihydrocodeine. Performed By: #### L [id number] ####[facility] [id number] [address] [place] HYDROmorphone Confirm (U) [Mass/Vol] <5 Normal <5 [facility] Comment on above: Order Comment: Speci men Type: URINE SPECIMENOrdering Facility: [facility] Address: [address] [place] [address] Result Comment: Hydr omorphone is a metabolite of hydrocodone. Performed By: #### L [id number] ####[facility]IA [id number] [address] [place] Methadone Confirm (U) [Mass/Vol] <16 Normal <16 [facility] Comment on above: Order Comment: Speci men Type: URINE SPECIMENOrdering Facility: [facility] Address: [address] [place] [address] Performed By: #### L [id number] ####[facility]IA [id number] [place] [address] [place] Methamphetamine Confirm (U) [Mass/Vol] <8 Normal <8 [facility] Comment on above: Order Comment: Speci men Type: URINE SPECIMENOrdering Facility: [facility] Address: [address] [place] [address] Performed By: #### L [id number] ####[facility] [id number] [address] STATES OF [facility] Morphine Confirm (U) [Mass/Vol] <10 Normal <10 [facility] Comment on above: Order Comment: Speci men Type: URINE SPECIMENOrdering Facility: [facility] Address: [address] [place] [address] Result Comment: Morp zoey is a metabolite of codeine and heroin. Performed By: #### L [id number] ####[facility] [id number] [address] [place] Norbuprenorphine (U) [Mass/Vol] <20 Normal <20 [facility] Comment on above: Order Comment: Speci men Type: URINE SPECIMENOrdering Facility: [facility] Address: [address] [place] [address] Result Comment: Norb uprenorphine is the primary active metabolite of buprenorphine. Performed By: #### L [id number] ####[facility]IA [id number] [place] [address] [place] Norfentanyl Confirm (U) [Mass/Vol] <6 Normal <6 [facility] Comment on above: Order Comment: Speci men Type: URINE SPECIMENOrdering Facility: [facility] Address: [address] [place] [address] Result Comment: Norf entanyl is a metabolite of fentanyl. Performed By: #### L [id number] ####[facility] [id number] [place] [address] [place] Nortramadol (U) [Mass/Vol] <20 Normal <20 [facility] Comment on above: Order Comment: Speci men Type: URINE SPECIMENOrdering Facility: [facility] Address: [address] [place] [address] Result Comment: Desm ethyltramadol is a metabolite of tramadol. Performed By: #### L [id number] ####[facility] [id number] [place] [address] [place] NOTE,UR PAIN ALFARO Normal [facility] Comment on above: Order Comment: Speci men Type: URINE SPECIMENOrdering Facility: [facility] Address: [address] [place] [address] Result Comment: This test is for medical use only. This test was developed, and its performance characteristics determined by the [facility] Department of Pathology and Laboratory Medicine. It has not been cleared or approved by the FDA. The [facility] Department of Pathology and Laboratory Medicine is regulated under CLIA as qualified to perform high-complexity testing. This test is used for clinical purposes. It should not be regarded as investigational or for research. Performed By: #### L [id number] ####[facility]IA [id number] [place] [address] [place] oxyCODONE Confirm (U) [Mass/Vol] <10 Normal <10 [facility] Comment on above: Order Comment: Speci men Type: URINE SPECIMENOrdering Facility: [facility] Address: [address] [place] [address] Performed By: #### L [id number] ####[facility] [id number] [address] [place] oxyMORphone Confirm (U) [Mass/Vol] <5 Normal <5 [facility] Comment on above: Order Comment: Speci men Type: URINE SPECIMENOrdering Facility: [facility] Address: [address] [place] [address] Result Comment: Oxym orphone is a metabolite of oxycodone. Performed By: #### L [id number] ####[facility]CL[facility] [id number] [place] [address] [place] traMADol Confirm (U) [Mass/Vol] <25 Normal <25 [facility] Comment on above: Order Comment: Speci men Type: URINE SPECIMENOrdering Facility: [facility] Address: [address] [place] [address] Performed By: #### L [id number] ####[facility] [id number] [place] [address] [place] SPECIMEN VALIDITY, URINEon 1 10-19-2023 CHROMATE,URINE <10 Normal <50 [facility] Comment on above: Order Comment: Speci men Type: URINE SPECIMEN [facility] Address: [address] [place] [address] Performed By: #### L [id number] #### [facility] CLIA [id number] [address] [place] [address] [place] CREATININE,URINE 180.5 mg/dL Normal 20.0-300.0 [facility] Comment on above: Order Comment: Speci men Type: URINE SPECIMEN [facility] Address: [address] [place] [address] Performed By: #### L [id number] #### [facility] CLIA [id number] [address] [place] [address] [place] NITRITES,URINE <50 Normal <500 [facility] Comment on above: Order Comment: Speci men Type: URINE SPECIMEN [facility] Address: [address] [place] [address] Performed By: #### L [id number] #### [facility] CLIA [id number] [address] [place] [address] [place] OXIDANTS,URINE <38 Normal <200 [facility] Comment on above: Order Comment: Speci men Type: URINE SPECIMEN [facility] Address: [address] [place] [address] Performed By: #### L [id number] #### [facility] CLIA [id number] [address] [place] [address] [place] pH (U) 5.7 [pH] Normal 4.5-8.0 [facility] Comment on above: Order Comment: Speci men Type: URINE SPECIMEN [facility] Address: [address] [place] [address] Performed By: #### L [id number] #### [facility] CLIA [id number] [address] [place] [address] [place] SPEC GRAVITY,UR 1.028 Normal 1.003-1.035 [facility] Comment on above: Order Comment: Speci men Type: URINE SPECIMEN [facility] Address: [address] [place] [address] Performed By: #### L [id number] #### [facility] CLIA [id number] [address] [place] [address] [place] SPECIMEN VALIDITY QUALITY Specimen quality results within acceptable limits Normal [facility] Comment on above: Order Comment: Speci men Type: URINE SPECIMEN [facility] Address: [address] [place] [address] Performed By: #### L [id number] #### [facility] CLIA [id number] [address] [place] [address] [place] TOXICOLOGY SCREEN, ROUTINE U RINEon 08-19-2024 Amphetamines Confirm (U) [Mass/Vol] Negative Normal Negative [facility] Comment on above: Order Comment: Speci men Type: BLOOD SPECIMEN [facility] Address: [address] [place] [address] Result Comment: Cuto ff threshold at 1000 ng/mL. Performed By: #### 6 768-6, 9, 17194-4 #### [facility] CLIA [id number] [address] [place] [address] [place] BARBITURATES, URINE Negative Normal Negative [facility] Comment on above: Order Comment: Speci men Type: BLOOD SPECIMEN [facility] Address: [address] [place] [address] Result Comment: Cuto ff threshold at 200 ng/mL. Performed By: #### 6 768-6, 2132-06, #### [facility] CLIA [id number] [address] [place] [address] [place] BENZODIAZEPINES, UR Negative Normal Negative [facility] Comment on above: Order Comment: Speci men Type: BLOOD SPECIMEN [facility] Address: [address] [place] [address] Result Comment: Cuto ff threshold at 200 ng/mL. Performed By: #### 6 768-6, 2132-06, #### [facility] CLIA [id number] [address] [place] [address] [place] Cannabinoids Screen Ql (U) Negative Normal Negative [facility] Comment on above: Order Comment: Speci men Type: BLOOD SPECIMEN [facility] Address: [address] [place] [address] Result Comment: Cuto ff threshold at 50 ng/mL. Performed By: #### 6 768-6, 2132-06, 71812-3 #### [facility] CLIA [id number] [address] [place] [address] [place] Cocaine Ql (U) Negative Normal Negative [facility] Comment on above: Order Comment: Speci men Type: BLOOD SPECIMEN [facility] Address: [address] [place] [address] Result Comment: Cuto ff threshold at 300 ng/mL. Performed By: #### 6 768-6, 2132-06, #### [facility] CLIA [id number] [address] [place] [address] [place] Ethanol (U) [Mass/Vol] <11 Normal <11 [facility] Comment on above: Order Comment: Speci men Type: BLOOD SPECIMEN [facility] Address: [address] [place] [address] Performed By: #### 6 768-6, 2132-06, #### [facility] CLIA [id number] [address] [place] [address] [place] Opiates Screen Ql (U) Negative Normal Negative [facility] Comment on above: Order Comment: Speci men Type: BLOOD SPECIMEN [facility] Address: [address] [place] [address] Result Comment: Cuto ff threshold at 300 ng/mL. Performed By: #### 6 768-6, 2132-06, #### [facility] CLIA [id number] [address] [place] [address] [place] oxyCODONE cutoff Screen (U) [Mass/Vol] Negative Normal Negative [facility] Comment on above: Order Comment: Speci men Type: BLOOD SPECIMEN [facility] Address: [address] [place] [address] Result Comment: Cuto ff threshold at 100 ng/mL. Performed By: #### 6 768-6, 2132-06, #### [facility] CLIA [id number] [address] [place] [address] [place] Phencyclidine Ql (U) Negative Normal Negative [facility] Comment on above: Order Comment: Speci men Type: BLOOD SPECIMEN [facility] Address: [address] [place] [address] Result Comment: Cuto ff threshold at 25 ng/mL. Performed By: #### 6 768-6, 2132-9, 89215-4 #### [facility] CLIA [id number] [address] [place] [address] OF [facility] CNTHERAPYon 08-05-2024 CNTHERAPY OT/PT/Speech Visit ( PTWS) -- BIANCA DELAROSA ([id number]) 1975 [facility] Date Time Provider Department 08/05/24 7:45 AM [facility] PTAMOR Date Time Provider Department Center 08/05/2024 7:45 AM [id number], BRENT PTWS Irina Sharma Reason for Visit: Physical Therapy [503] Primary Visit Diagnosis:Acute pain of right shoulder [M25.511] Allergies As of Date: 08/05/2024 Noted Allergy Reaction TOPAMAX (TOPIRAMATE) 02/04/2014 1 - Mental Status Change Comments: Unable to remember anything CELEXA (CITALOPRAM HYDROBROMIDE) 10/22/2014 14 - Other: See Comments Comments: uneffective EFFEXOR (VENLAFAXINE ANALOGUES) 10/22/2014 14 - Other: See Comments Comments: Sexual side affect REGLAN (METOCLOPRAMIDE HCL) 01/24/2007 16 - Unknown ZOLOFT (SERTRALINE HCL) 10/22/2014 14 - Other: See Comments Comments: drowsy Date Reviewed: 06/06/2024 Reviewed by: Chuy Jackson MA - Fully Assessed Prescriptions as of 08/05/2024 - OLANZapine (ZYPREXA) 5 mg tablet Take 1 tablet by mouth daily at bedtime. - doxepin capsule 10 mg Take 1 capsule by mouth daily at bedtime. - methylphenidate CD (METADATE CD) 10 mg biphasic capsule Take 1 capsule by mouth once daily for 30 days. - atorvastatin (LIPITOR) 80 mg tablet Take 1 tablet by mouth once daily. - TRESIBA FLEXTOUCH U-100 100 unit/mL (3 mL) injection pen Inject 60 units subcutaneous daily at bedtime. Dispense 60 mL for 90 day supply. - HUMALOG KWIKPEN INSULIN 100 unit/mL Inject subcutaneously 20 units breakfast, 20 units lunch, 20 units dinner plus sliding scale up to 82 units daily. Dispense 75 mL for a 90 day supply. - Fenofibrate (LOFIBRA) 54 mg tablet Take 1 tablet by mouth once daily. - busPIRone (BUSPAR) 15 mg tablet Take one tab by mouth twice a day. - DULoxetine (CYMBALTA) 60 mg capsule Take 1 capsule by mouth once daily. - esomeprazole (NEXIUM) 40 mg capsule Take 1 capsule by mouth once daily. - Insulin Wykoff, Disposable, (DROPLET PEN NEEDLE) 31 gauge x 3/16 Use 4 PEN NEEDLES to inject MEDICATION subcutaneously daily - metFORMIN (GLUCOPHAGE) 500 mg tablet Take 2 tablets by mouth two times a day with meals. - Blood-Glucose Sensor (FREESTYLE EVERT 3 SENSOR) agnes Use one sensor every 14 day, IDDM, E11.9 - zonisamide (ZONEGRAN) 25 mg capsule Take 1 capsule by mouth once daily. - CPAP AUTO PAP 5-20 cmH20, CHIN STRAP, heated HUMIDITY, mask of patient's choice. LIFETIME SUPPLIES. SD Card. Download to [employer]. - multivitamin tablet Take 1 tablet by mouth once daily. Portfolio Mgr: Addendum Therapy (PT/OT/Speech/Resp) ID: [id number] 08/05/2024 8:31 AM Author: STORM PATEL Signed by STORM PATEL PT on 08/05/2024 at 8:31 AM * * * This document replaces document [id number] * * * Document text: Program_ID:[id number] Access Code: [email or web address] URL: [email or web address] Date: 08-05-2024 Prepared By: Storm Patel Program Notes Exercises - Standing Shoulder External Rotation AAROM with Dowel - 2-3 x daily - 7 x weekly - 2 sets - 10 reps - Isometric Shoulder Flexion at Wall - 1 x daily - 7 x weekly - 2 sets - 10 reps - Isometric Shoulder Extension at Wall - 1 x daily - 7 x weekly - 2 sets - 10 reps - Isometric Shoulder Abduction at Wall - 1 x daily - 7 x weekly - 2 sets - 10 reps - Standing Isometric Shoulder External Rotation with Doorway - 1 x daily - 7 x weekly - 2 sets - 10 reps - Standing Isometric Shoulder Internal Rotation with Towel Roll at Doorway - 1 x daily - 7 x weekly - 2 sets - 10 reps - Standing Shoulder Alphabet - 2 x daily - 7 x weekly - sets - 1 reps Normal [facility] THERAPY NTon 08-05-2024 THERAPY NT HNO ID: [id number] Author: STORM PATEL PT Service: ? Author Type: Physical Therapist Type: Therapy (PT/OT/Speech/Resp) Filed: 08/05/2024 08:31 Note Text: Program_ID:[id number] Access Code: [email or web address] URL: [email or web address] Date: 08-05-2024 Prepared By: Storm Patel Program Notes Exercises - Standing Shoulder External Rotation AAROM with Dowel - 2-3 x daily - 7 x weekly - 2 sets - 10 reps - Isometric Shoulder Flexion at Wall - 1 x daily - 7 x weekly - 2 sets - 10 reps - Isometric Shoulder Extension at Wall - 1 x daily - 7 x weekly - 2 sets - 10 reps - Isometric Shoulder Abduction at Wall - 1 x daily - 7 x weekly - 2 sets - 10 reps - Standing Isometric Shoulder External Rotation with Doorway - 1 x daily - 7 x weekly - 2 sets - 10 reps - Standing Isometric Shoulder Internal Rotation with Towel Roll at Doorway - 1 x daily - 7 x weekly - 2 sets - 10 reps - Standing Shoulder Alphabet - 2 x daily - 7 x weekly - sets - 1 reps Normal [facility] CNTHERAPYon 07-22-2024 CNTHERAPY OT/PT/Speech Visit ( PTWS) -- BIANCA DELAROSA ([id number]) 1975 M [facility] Date Time Provider Department 07/22/24 9:30 AM STORM PATEL PTWS Date Time Provider Department Center 07/22/2024 9:30 AM [id number], BRENT PTWS Irina Sharma Reason for Visit: Physical Therapy [503] PT Progress Note [1596] Primary Visit Diagnosis:Acute pain of right shoulder [M25.511] Allergies As of Date: 07/22/2024 Noted Allergy Reaction TOPAMAX (TOPIRAMATE) 02/04/2014 1 - Mental Status Change Comments: Unable to remember anything CELEXA (CITALOPRAM HYDROBROMIDE) 10/22/2014 14 - Other: See Comments Comments: uneffective EFFEXOR (VENLAFAXINE ANALOGUES) 10/22/2014 14 - Other: See Comments Comments: Sexual side affect REGLAN (METOCLOPRAMIDE HCL) 01/24/2007 16 - Unknown ZOLOFT (SERTRALINE HCL) 10/22/2014 14 - Other: See Comments Comments: drowsy Date Reviewed: 06/06/2024 Reviewed by: Chuy Jackson MA - Fully Assessed Prescriptions as of 07/22/2024 - OLANZapine (ZYPREXA) 5 mg tablet Take 1 tablet by mouth daily at bedtime. - doxepin capsule 10 mg Take 1 capsule by mouth daily at bedtime. - methylphenidate CD (METADATE CD) 10 mg biphasic capsule Take 1 capsule by mouth once daily for 30 days. - atorvastatin (LIPITOR) 80 mg tablet Take 1 tablet by mouth once daily. - TRESIBA FLEXTOUCH U-100 100 unit/mL (3 mL) injection pen Inject 60 units subcutaneous daily at bedtime. Dispense 60 mL for 90 day supply. - HUMALOG KWIKPEN INSULIN 100 unit/mL Inject subcutaneously 20 units breakfast, 20 units lunch, 20 units dinner plus sliding scale up to 82 units daily. Dispense 75 mL for a 90 day supply. - Fenofibrate (LOFIBRA) 54 mg tablet Take 1 tablet by mouth once daily. - busPIRone (BUSPAR) 15 mg tablet Take one tab by mouth twice a day. - DULoxetine (CYMBALTA) 60 mg capsule Take 1 capsule by mouth once daily. - esomeprazole (NEXIUM) 40 mg capsule Take 1 capsule by mouth once daily. - Insulin Wykoff, Disposable, (DROPLET PEN NEEDLE) 31 gauge x 3/16 Use 4 PEN NEEDLES to inject MEDICATION subcutaneously daily - metFORMIN (GLUCOPHAGE) 500 mg tablet Take 2 tablets by mouth two times a day with meals. - Blood-Glucose Sensor (FREESTYLE EVERT 3 SENSOR) agnes Use one sensor every 14 day, IDDM, E11.9 - zonisamide (ZONEGRAN) 25 mg capsule Take 1 capsule by mouth once daily. - CPAP AUTO PAP 5-20 cmH20, CHIN STRAP, heated HUMIDITY, mask of patient's choice. LIFETIME SUPPLIES. SD Card. Download to [employer]. - multivitamin tablet Take 1 tablet by mouth once daily. Normal [facility] CNTHERAPYon 06-28-2024 CNTHERAPY OT/PT/Speech Visit ( PTWS) -- BIANCA DELAROSA ([id number]) 1975 M [facility] Date Time Provider Department 06/28/24 8:00 AM RUBY CHO PTWS Date Time Provider Department Center 06/28/2024 8:00 AM [id number], MARIAH PTWS Irina Zachary Reason for Visit: Physical Therapy [503] Primary Visit Diagnosis:Acute pain of right shoulder [M25.511] Allergies As of Date: 06/28/2024 Noted Allergy Reaction TOPAMAX (TOPIRAMATE) 02/04/2014 1 - Mental Status Change Comments: Unable to remember anything CELEXA (CITALOPRAM HYDROBROMIDE) 10/22/2014 14 - Other: See Comments Comments: uneffective EFFEXOR (VENLAFAXINE ANALOGUES) 10/22/2014 14 - Other: See Comments Comments: Sexual side affect REGLAN (METOCLOPRAMIDE HCL) 01/24/2007 16 - Unknown ZOLOFT (SERTRALINE HCL) 10/22/2014 14 - Other: See Comments Comments: drowsy Date Reviewed: 06/06/2024 Reviewed by: Chuy Jackson MA - Fully Assessed Prescriptions as of 06/28/2024 - OLANZapine (ZYPREXA) 5 mg tablet Take 1 tablet by mouth daily at bedtime. - doxepin capsule 10 mg Take 1 capsule by mouth daily at bedtime. - methylphenidate CD (METADATE CD) 10 mg biphasic capsule Take 1 capsule by mouth once daily for 30 days. - atorvastatin (LIPITOR) 80 mg tablet Take 1 tablet by mouth once daily. - TRESIBA FLEXTOUCH U-100 100 unit/mL (3 mL) injection pen Inject 60 units subcutaneous daily at bedtime. Dispense 60 mL for 90 day supply. - HUMALOG KWIKPEN INSULIN 100 unit/mL Inject subcutaneously 20 units breakfast, 20 units lunch, 20 units dinner plus sliding scale up to 82 units daily. Dispense 75 mL for a 90 day supply. - Fenofibrate (LOFIBRA) 54 mg tablet Take 1 tablet by mouth once daily. - busPIRone (BUSPAR) 15 mg tablet Take one tab by mouth twice a day. - DULoxetine (CYMBALTA) 60 mg capsule Take 1 capsule by mouth once daily. - esomeprazole (NEXIUM) 40 mg capsule Take 1 capsule by mouth once daily. - Insulin Wykoff, Disposable, (DROPLET PEN NEEDLE) 31 gauge x 3/16 Use 4 PEN NEEDLES to inject MEDICATION subcutaneously daily - metFORMIN (GLUCOPHAGE) 500 mg tablet Take 2 tablets by mouth two times a day with meals. - Blood-Glucose Sensor (FREESTYLE EVERT 3 SENSOR) agnes Use one sensor every 14 day, IDDM, E11.9 - zonisamide (ZONEGRAN) 25 mg capsule Take 1 capsule by mouth once daily. - CPAP AUTO PAP 5-20 cmH20, CHIN STRAP, heated HUMIDITY, mask of patient's choice. LIFETIME SUPPLIES. SD Card. Download to [employer]. - multivitamin tablet Take 1 tablet by mouth once daily. Portfolio Mgr: Therapy (PT/OT/Speech/Resp) ID: [id number] 06/28/2024 8:41 AM Author: RUBY CHO Signed by RUBY CHO PTA on 06/28/2024 at 8:41 AM Document text: Program_ID:[id number] Access Code: [email or web address] URL: [email or web address] ObjectWay/ Date: 06-28-2024 Prepared By: Storm Patel Program Notes Exercises - Standing Shoulder External Rotation AAROM with Dowel - 2-3 x daily - 7 x weekly - 2 sets - 10 reps - Isometric Shoulder Flexion at Wall - 1 x daily - 7 x weekly - 2 sets - 10 reps - Isometric Shoulder Extension at Wall - 1 x daily - 7 x weekly - 2 sets - 10 reps - Isometric Shoulder Abduction at Wall - 1 x daily - 7 x weekly - 2 sets - 10 reps - Standing Isometric Shoulder External Rotation with Doorway - 1 x daily - 7 x weekly - 2 sets - 10 reps - Standing Isometric Shoulder Internal Rotation with Towel Roll at Doorway - 1 x daily - 7 x weekly - 2 sets - 10 reps Normal [facility] THERAPY NTon 06-28-2024 THERAPY NT HNO ID: [id number] Author: RUBY CHO PTA Service: ? Author Type: Doctor Of Radiology Type: Therapy (PT/OT/Speech/Resp) Filed: 06/28/2024 08:41 Note Text: Program_ID:[id number] Access Code: [email or web address] URL: [email or web address] [employer]/ Date: 06-28-2024 Prepared By: Storm Patel Program Notes Exercises - Standing Shoulder External Rotation AAROM with Dowel - 2-3 x daily - 7 x weekly - 2 sets - 10 reps - Isometric Shoulder Flexion at Wall - 1 x daily - 7 x weekly - 2 sets - 10 reps - Isometric Shoulder Extension at Wall - 1 x daily - 7 x weekly - 2 sets - 10 reps - Isometric Shoulder Abduction at Wall - 1 x daily - 7 x weekly - 2 sets - 10 reps - Standing Isometric Shoulder External Rotation with Doorway - 1 x daily - 7 x weekly - 2 sets - 10 reps - Standing Isometric Shoulder Internal Rotation with Towel Roll at Doorway - 1 x daily - 7 x weekly - 2 sets - 10 reps Normal [facility] CNTHERAPYon 06-12-2024 CNTHERAPY OT/PT/Speech Visit ( PTWS) -- BIANCA DELAROSA ([id number]) 1975 M [facility] Date Time Provider Department 06/12/24 9:00 AM STORM PATEL PTAMOR Date Time Provider Department Center 06/12/2024 9:00 AM [id number], BRENT PTAMOR Winslowangelo Sharma Reason for Visit: PT Eval [747] Visit Diagnosis:Acute pain of right shoulder [M25.511] Allergies As of Date: 06/12/2024 Noted Allergy Reaction TOPAMAX (TOPIRAMATE) 02/04/2014 1 - Mental Status Change Comments: Unable to remember anything CELEXA (CITALOPRAM HYDROBROMIDE) 10/22/2014 14 - Other: See Comments Comments: uneffective EFFEXOR (VENLAFAXINE ANALOGUES) 10/22/2014 14 - Other: See Comments Comments: Sexual side affect REGLAN (METOCLOPRAMIDE HCL) 01/24/2007 16 - Unknown ZOLOFT (SERTRALINE HCL) 10/22/2014 14 - Other: See Comments Comments: drowsy Date Reviewed: 06/06/2024 Reviewed by: Chuy Jackson MA - Fully Assessed Prescriptions as of 06/12/2024 - atorvastatin (LIPITOR) 80 mg tablet Take 1 tablet by mouth once daily. - methylphenidate CD (METADATE CD) 10 mg biphasic capsule Take 1 capsule by mouth once daily for 30 days. - TRESIBA FLEXTOUCH U-100 100 unit/mL (3 mL) injection pen Inject 60 units subcutaneous daily at bedtime. Dispense 60 mL for 90 day supply. - HUMALOG KWIKPEN INSULIN 100 unit/mL Inject subcutaneously 20 units breakfast, 20 units lunch, 20 units dinner plus sliding scale up to 82 units daily. Dispense 75 mL for a 90 day supply. - Fenofibrate (LOFIBRA) 54 mg tablet Take 1 tablet by mouth once daily. - busPIRone (BUSPAR) 15 mg tablet Take one tab by mouth twice a day. - DULoxetine (CYMBALTA) 60 mg capsule Take 1 capsule by mouth once daily. - OLANZapine (ZYPREXA) 5 mg tablet Take 1 tablet by mouth daily at bedtime. - doxepin capsule 10 mg Take 1 capsule by mouth daily at bedtime. - esomeprazole (NEXIUM) 40 mg capsule Take 1 capsule by mouth once daily. - Insulin Wykoff, Disposable, (DROPLET PEN NEEDLE) 31 gauge x 3/16 Use 4 PEN NEEDLES to inject MEDICATION subcutaneously daily - metFORMIN (GLUCOPHAGE) 500 mg tablet Take 2 tablets by mouth two times a day with meals. - Blood-Glucose Sensor (FREESTYLE EVERT 3 SENSOR) agnes Use one sensor every 14 day, IDDM, E11.9 - zonisamide (ZONEGRAN) 25 mg capsule Take 1 capsule by mouth once daily. - CPAP AUTO PAP 5-20 cmH20, CHIN STRAP, heated HUMIDITY, mask of patient's choice. LIFETIME SUPPLIES. SD Card. Download to [employer]. - multivitamin tablet Take 1 tablet by mouth once daily. Portfolio Mgr: Therapy (PT/OT/Speech/Resp) ID: [id number] 06/12/2024 9:40 AM Author: STORM PATEL Signed by STORM PATEL PT on 06/12/2024 at 9:40 AM Document text: Program_ID:[id number] Access Code: [email or web address] URL: [email or web address] Date: 06-12-2024 Prepared By: Storm Patel Program Notes Exercises - Standing Shoulder Flexion AAROM with Dowel - 2-3 x daily - 7 x weekly - 2 sets - 10 reps - Standing Shoulder Abduction AAROM with Dowel - 2-3 x daily - 7 x weekly - 2 sets - 10 reps - Standing Shoulder External Rotation AAROM with Dowel - 2-3 x daily - 7 x weekly - 2 sets - 10 reps Normal [facility] THERAPY NTon 06-12-2024 THERAPY NT HNO ID: [id number] Author: STORM PATEL PT Service: ? Author Type: Physical Therapist Type: Therapy (PT/OT/Speech/Resp) Filed: 06/12/2024 09:40 Note Text: Program_ID:[id number] Access Code: [email or web address] URL: [email or web address] Date: 06-12-2024 Prepared By: Storm Patel Program Notes Exercises - Standing Shoulder Flexion AAROM with Dowel - 2-3 x daily - 7 x weekly - 2 sets - 10 reps - Standing Shoulder Abduction AAROM with Dowel - 2-3 x daily - 7 x weekly - 2 sets - 10 reps - Standing Shoulder External Rotation AAROM with Dowel - 2-3 x daily - 7 x weekly - 2 sets - 10 reps Normal [facility] CNOVon 06-06-2024 CNOV Office Visit (FAMPWS ) -- BIANCA DELAROSA ([id number]) 1975 M [facility] Date Time Provider Department 06/06/24 8:00 AM DOMINIK KELLEY During your visit today, we recorded the following information about you: Pulse Respiration Blood pressure Weight 83/minute 14/minute 116/80 135.6 kg Dominik Kelley, TAX ACCOUNTANT.CIRCUIT COURT CLERK 06/06/2024 8:09 AM Signed Chief Complaint Patient presents with: 6 Month Exam HPI Bianca Delarosa is a 48 year old male who presents here today for Above Complaints.. Patient presents for routine follow up. Patient reports feeling generally fatigued but has no other complaints. Past medical history, appointments, medications, allergies reviewed. Previous Medical History PAST MEDICAL HISTORY 09/24/2023: Acute hypoxemic respiratory failure due to COVID-19 (HCC) 03/31/2014: Agitation 03/31/2014: Allergic rhinitis 03/31/2014: Allergy-induced asthma Comment: Mild intermitant 12/07/2022: Attention 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 Comment: Substance agreement signed 12/2022, Tox screen done 12/202209/26/2018: Current use of proton pump inhibitor 01/27/2017: Diabetic eye exam (HCC) Comment: Last eye exam: 03/05/2019 03/31/2014: Diverticulosis 03/31/2014: Dyslipidemia Comment: Low HDL, High Trigs 03/31/2014: Elevated antinuclear antibody (JALEEL) level 03/31/2014: Family history of malignant neoplasm of gastrointestinal tract 06/22/2020: ISABELLA (generalized anxiety disorder) 09/26/2018: GERD without esophagitis 03/31/2014: Hiatal hernia 09/23/2023: History of COVID-19 Comment: 09/202303/31/2014: Hx of colonic polyp Comment: Needs next colonoscopy 08/202211/16/2019: Lump Comment: benign left palm 09/26/2018: Major depressive disorder with single episode, in partial remission (HCC) 09/11/2015: Migraine without aura and without status migrainosus, not intractable 03/31/2014: Mood disorder (HCC) 02/27/2018: Multiple thyroid nodules Comment: Seen Dr. Lazaro 03/201802/27/2018: Multiple thyroid nodules Comment: US 03/2020 per radiology no further f/u needed.. All benign Biopsy 03/[address] Lazaro. Benign. 10/21/2022: Obesity, Class II, BMI 35-39.9 01/27/2017: Obstructive sleep apnea syndrome Comment: On CPAP 03/25/2013: Other joint derangement, not elsewhere classified, lower leg 07/28/2020: Primary insomnia 04/20/2021: QT prolongation Comment: Seen [facility] 04/19/2021: [place] to be benign and related to anti-depressants. No changes needed. 03/31/2014: TMJ (temporomandibular joint disorder) Comment: Right side 01/19/2017: Type 2 diabetes mellitus without complication, without long-term current use of insulin ([facility]) 12/17/2014: Well adult exam Comment: Last done:11/16/2019 Previous Surgical History PAST SURGICAL HISTORY 2004: APPENDECTOMY HX 04/2021: ARTHROTOMY W/MENISCUS REPAIR KNEE; Right 06/2012: COLONOSCOPY Comment: Dr. Corrigan +polyp, repeat 5 yrs 08/30/2022: COLONOSCOPY Comment: repeat in 5 years 08/16/2017: COLONOSCOPY FLX DX W/COLLJ SPEC WHEN PFRMD Comment: Colonoscopy, repeat 5 yrs, Dr. Bliss 2008: PAST SURGICAL HISTORY OF Comment: benign cysts: 1 from head and 2 from neck 1979: TONSILLECTOMY AND ADENOIDECTOMY AGE 11/> No date: TONSILLECTOMY HX Family History FAMILY HISTORY Problem Relation Age of Onset Colon Cancer Father 52 Coronary Artery Disease Father Coronary Artery Disease Mother 60's Hypertension Mother No Known Problems Brother No Known Problems Brother No Known Problems Brother Coronary Artery Disease Maternal Grandmother 60's Stroke Maternal Grandfather Colon Cancer Paternal Uncle 49 Alzheimer's Disease No Family History Prostate Cancer No Family History Breast Cancer No Family History Hyperlipidemia No Family History Kidney Disease No Family History Seizures No Family History Thyroid No Family History No Ocular Disease No Family History Patient Allergies ALLERGIES Allergen Reactions Topamax [Topiramate] Mental Status Change Unable to remember anything Celexa [Citalopram * Other: See Comments uneffective Effexor [Venlafaxin* Other: See Comments Sexual side affect Reglan [Metoclopram* Unknown Zoloft [Sertraline * Other: See Comments drowsy Current Medications Current Outpatient Medications on File Prior to Visit Medication Sig methylphenidate CD (METADATE CD) 10 mg biphasic capsule Take 1 capsule by mouth once daily for 30 days. TRESIBA FLEXTOUCH U-100 100 unit/mL (3 mL) injection pen Inject 60 units subcutaneous daily at bedtime. Dispense 60 mL for 90 day supply. HUMALOG KWIKPEN INSULIN 100 unit/mL Inject subcutaneously 20 units breakfast, 20 units lunch, 20 units dinner plus sliding scale up to 82 units daily. Dispense 75 mL for a 90 day supply. atorvastatin (LIPITOR) 40 mg tablet Take 1 tablet by mouth once daily. Fenofibrate (LOFIBRA) (more content not included)... Normal [facility] 05-27-2024 [facility] Telephone ([facility]) -- BIANCA DELAROSA ([id number]) 1975 [facility] Date Time Provider Department 05/27/24 DOMINIK KELLEY [facility] During your visit today, we recorded the following information about you: Dominik Kelley APRN.[facility] 05/27/2024 8:17 AM Signed Please let patient know their xray is normal. Emma Martínez RN 05/27/2024 9:28 AM Signed Called and left a voicemail for the Patient to call back and ask for a nurse to receive the providers message. KENNEY Buckley Brittany, MA 05/28/2024 10:17 AM Signed Pt notified and verbalized understanding Chuy Jackson MA Allergies As of Date: 05/27/2024 Noted Allergy Reaction TOPAMAX (TOPIRAMATE) 02/04/2014 1 - Mental Status Change Comments: Unable to remember anything CELEXA (CITALOPRAM HYDROBROMIDE) 10/22/2014 14 - Other: See Comments Comments: uneffective EFFEXOR (VENLAFAXINE ANALOGUES) 10/22/2014 14 - Other: See Comments Comments: Sexual side affect REGLAN (METOCLOPRAMIDE HCL) 01/24/2007 16 - Unknown ZOLOFT (SERTRALINE HCL) 10/22/2014 14 - Other: See Comments Comments: drowsy Date Reviewed: 05/21/2024 Reviewed by: Chuy Jackson MA - Fully Assessed Reason for Visit: Results [95] Prescriptions as of 05/28/2024 - methylphenidate CD (METADATE CD) 10 mg biphasic capsule Take 1 capsule by mouth once daily for 30 days. - TRESIBA FLEXTOUCH U-100 100 unit/mL (3 mL) injection pen Inject 60 units subcutaneous daily at bedtime. Dispense 60 mL for 90 day supply. - HUMALOG KWIKPEN INSULIN 100 unit/mL Inject subcutaneously 20 units breakfast, 20 units lunch, 20 units dinner plus sliding scale up to 82 units daily. Dispense 75 mL for a 90 day supply. - atorvastatin (LIPITOR) 40 mg tablet Take 1 tablet by mouth once daily. - Fenofibrate (LOFIBRA) 54 mg tablet Take 1 tablet by mouth once daily. - busPIRone (BUSPAR) 15 mg tablet Take one tab by mouth twice a day. - DULoxetine (CYMBALTA) 60 mg capsule Take 1 capsule by mouth once daily. - OLANZapine (ZYPREXA) 5 mg tablet Take 1 tablet by mouth daily at bedtime. - doxepin capsule 10 mg Take 1 capsule by mouth daily at bedtime. - esomeprazole (NEXIUM) 40 mg capsule Take 1 capsule by mouth once daily. - Insulin Wykoff, Disposable, (DROPLET PEN NEEDLE) 31 gauge x 3/16 Use 4 PEN NEEDLES to inject MEDICATION subcutaneously daily - metFORMIN (GLUCOPHAGE) 500 mg tablet Take 2 tablets by mouth two times a day with meals. - Blood-Glucose Sensor (FREESTYLE EVERT 3 SENSOR) agnes Use one sensor every 14 day, IDDM, E11.9 - zonisamide (ZONEGRAN) 25 mg capsule Take 1 capsule by mouth once daily. - CPAP AUTO PAP 5-20 cmH20, CHIN STRAP, heated HUMIDITY, mask of patient's choice. LIFETIME SUPPLIES. SD Card. Download to [employer]. - multivitamin tablet Take 1 tablet by mouth once daily. Problem List As Of Date 05/27/2024 Noted Resolved Other joint derangement, not elsewhere classifi*03/25/2013 Agitation [R45.1] 03/31/2014 Allergic rhinitis [J30.9] 03/31/2014 Elevated antinuclear antibody (JALEEL) level [R76.*03/31/2014 Diverticulosis [K57.90] 03/31/2014 Dyslipidemia [E78.5] 03/31/2014 Family history of malignant neoplasm of gastroi*03/31/2014 Hiatal hernia [K44.9] 03/31/2014 Mood disorder (HCC) [F39] 03/31/2014 TMJ (temporomandibular joint disorder) [M26.609]03/31/2014 Hx of colonic polyp [Z86.010] 03/31/2014 Well adult exam [Z00.00] 12/17/2014 Allergy-induced asthma [J45.909] 05/12/2015 Migraine without aura and without status migrai*09/11/2015 Type 2 diabetes mellitus without complication, *01/19/2017 Obstructive sleep apnea syndrome [G47.33] 01/27/2017 Diabetic eye exam (HCC) [Z01.00, E11.9] 01/27/2017 Multiple thyroid nodules [E04.2] 02/27/2018 Major depressive disorder with single episode, *09/26/2018 GERD without esophagitis [K21.9] 09/26/2018 Lump [LFH9032] 11/16/2019 ISABELLA (generalized anxiety disorder) [F41.1] 06/22/2020 Primary insomnia [F51.01] 07/28/2020 Medication management [Z79.899] 07/28/2020 Joint stiffness of right lower leg [M25.661] 10/21/2020 12/22/2020 Right leg weakness [R29.898] 10/21/2020 12/22/2020 QT prolongation [R94.31] 04/20/2021 Obesity, Class II, BMI 35-39.9 [E66.9] 10/21/2022 Attention deficit disorder (ADD) without hypera*12/07/2022 History of COVID-19 [Z86.16] 09/23/2023 Encounter Status:Closed by WORKMAN CHUY ROSADO on 05/28/24 Normal [facility] XR Shoulder - right 3 Viewso n 05-26-2024 IMPRESSION: No acute bone abnormality. Franchise Specialist: GORGE Transcribe Date/Time: May 26 2024 7:31P Dictated by : MARYANN MURILLO MD This examination was interpreted and the report reviewed and electronically signed by: MARYANN MURILLO MD on May 26 2024 7:32PM EST DIVISION OF RADIOLOGY * * *Final Report* * * DATE OF EXAM: May 21 2024 4:17PM WOX 5253 - XR SHLDR >/=3V AP/JUVENCIO AP/OTHR RT / PROCEDURE REASON: Acute pain of right shoulder * * * * Physician Interpretation * * * * XR SHLDR >/=3V AP/JUVENCIO AP/OTHR RT HISTORY: Acute pain of right shoulder COMPARISON: None. FINDINGS: No evidence of fracture, dislocation, or destructive process. Normal acromioclavicular joint. Normal glenohumeral joint. _ _ DIVISION OF RADIOLOGY Provider, [facility] - 05/26/2024 * * *Final Report* * * DATE OF EXAM: May 21 2024 4:17PM WOX 5253 - XR SHLDR >/=3V AP/JUVENCIO AP/OTHR RT / PROCEDURE REASON: Acute pain of right shoulder * * * * Physician Interpretation * * * * XR SHLDR >/=3V AP/JUVENCIO AP/OTHR RT HISTORY: Acute pain of right shoulder COMPARISON: None. FINDINGS: No evidence of fracture, dislocation, or destructive process. Normal acromioclavicular joint. Normal glenohumeral joint. _ _ IMPRESSION IMPRESSION: No acute bone abnormality. Franchise Specialist: PSCB Transcribe Date/Time: May 26 2024 7:31P Dictated by : MARYANN MURILLO MD This examination was interpreted and the report reviewed and electronically signed by: MARYANN MURILLO MD on May 26 2024 7:32PM EST [facility] XR Shoulder - right 3 ViewsO rdered By: Ccf Provider on 05-26-[address] [facility] CBC W Auto Differential pane l (Bld)on 05-21-2024 Basophils (Bld) [#/Vol] 0.06 10*3/uL Normal <0.11 [facility] Comment on above: Order Comment: Speci men Type: BLOOD SPECIMENOrdering Facility: [facility] Address: [address] [place] [address] Performed By: #### 5 7021-8 ####[facility] LABCLIA [id number] [place] [address] [place] Basophils/100 WBC (Bld) 0.6 % Normal [facility] Comment on above: Order Comment: Speci men Type: BLOOD SPECIMENOrdering Facility: [facility] Address: [address] [place] [address] Performed By: #### 5 7021-8 ####[facility]CL[facility] [id number] [place] [address] [place] Differential cell count method Nom (Bld) Auto Normal [facility] Comment on above: Order Comment: Speci men Type: BLOOD SPECIMENOrdering Facility: [facility] Address: [address] [place] [address] Performed By: #### 5 7021-8 ####[facility] LABCL[facility] [id number] [place] [address] [place] Eosinophils (Bld) [#/Vol] 0.17 10*3/uL Normal <0.46 [facility] Comment on above: Order Comment: Speci men Type: BLOOD SPECIMENOrdering Facility: [facility] Address: [address] [place] [address] Performed By: #### 5 7021-8 ####[facility]CLIA [id number] [place] [address] [place] Eosinophils/100 WBC (Bld) 1.6 % Normal [facility] Comment on above: Order Comment: Speci men Type: BLOOD SPECIMENOrdering Facility: [facility] Address: [address] [place] [address] Performed By: #### 5 7021-8 ####[facility] [id number] [place] [address] [place] Erythrocyte distribution width (RBC) [Ratio] 11.7 % Normal 11.5-15.0 [facility] Comment on above: Order Comment: Speci men Type: BLOOD SPECIMENOrdering Facility: [facility] Address: [address] [place] [address] Performed By: #### 5 7021-8 ####[facility] LABIA [id number] [place] [address] [place] Hematocrit (Bld) [Volume fraction] 44.8 % Normal 39.0-51.0 [facility] Comment on above: Order Comment: Speci men Type: BLOOD SPECIMENOrdering Facility: [facility] Address: [address] [place] [address] Performed By: #### 5 7021-8 ####[facility] LABIA [id number] [place] [address] [place] Hemoglobin (Bld) [Mass/Vol] 15.3 g/dL Normal 13.0-17.0 [facility] Comment on above: Order Comment: Speci men Type: BLOOD SPECIMENOrdering Facility: [facility] Address: [address] [place] [address] Performed By: #### 5 7021-8 ####[facility] LABIA [id number] [place] [address] [place] Immature granulocytes (Bld) [#/Vol] 0.03 10*3/uL Normal <0.10 [facility] Comment on above: Order Comment: Speci men Type: BLOOD SPECIMENOrdering Facility: [facility] Address: [address] [place] [address] Performed By: #### 5 7021-8 ####[facility] [id number] [place] [address] [place] Immature granulocytes/100 WBC (Bld) 0.3 % Normal [facility] Comment on above: Order Comment: Speci men Type: BLOOD SPECIMENOrdering Facility: [facility] Address: [address] [place] [address] Performed By: #### 5 7021-8 ####[facility]CLIA [id number] [place] [address] [place] Lymphocytes (Bld) [#/Vol] 3.30 10*3/uL Normal 1.00-4.00 [facility] Comment on above: Order Comment: Speci men Type: BLOOD SPECIMENOrdering Facility: [facility] Address: [address] [place] [address] Performed By: #### 5 7021-8 ####[facility]CLIA [id number] [place] [address] [place] Lymphocytes/100 WBC (Bld) 31.6 % Normal [facility] Comment on above: Order Comment: Speci men Type: BLOOD SPECIMENOrdering Facility: [facility] Address: [address] [place] [address] Performed By: #### 5 7021-8 ####[facility]CLIA [id number] [place] [address] [place] MCH (RBC) [Entitic mass] 30.7 pg Normal 26.0-34.0 [facility] Comment on above: Order Comment: Speci men Type: BLOOD SPECIMENOrdering Facility: [facility] Address: [address] [place] [address] Performed By: #### 5 7021-8 ####[facility]CL[facility] [id number] [place] [address] [place] MCHC (RBC) [Mass/Vol] 34.2 g/dL Normal 30.5-36.0 [facility] Comment on above: Order Comment: Speci men Type: BLOOD SPECIMENOrdering Facility: [facility] Address: [address] [place] [address] Performed By: #### 5 7021-8 ####[facility]CLIA [id number] [place] [address] [place] MCV (RBC) [Entitic vol] 89.8 fL Normal 80.0-100.0 [facility] Comment on above: Order Comment: Speci men Type: BLOOD SPECIMENOrdering Facility: [facility] Address: [address] [place] [address] Performed By: #### 5 7021-8 ####[facility]CLIA [id number] [place] [address] [place] Monocytes (Bld) [#/Vol] 0.49 10*3/uL Normal <0.87 [facility] Comment on above: Order Comment: Speci men Type: BLOOD SPECIMENOrdering Facility: [facility] Address: [address] [place] [address] Performed By: #### 5 7021-8 ####[facility]CLIA [id number] [place] [address] [place] Monocytes/100 WBC (Bld) 4.7 % Normal [facility] Comment on above: Order Comment: Speci men Type: BLOOD SPECIMENOrdering Facility: [facility] Address: [address] [place] [address] Performed By: #### 5 7021-8 ####[facility] [id number] [place] [address] [place] Neutrophils (Bld) [#/Vol] 6.39 10*3/uL Normal 1.45-7.50 [facility] Comment on above: Order Comment: Speci men Type: BLOOD SPECIMENOrdering Facility: [facility] Address: [address] [place] [address] Performed By: #### 5 7021-8 ####[facility]CLIA [id number] [place] [address] [place] Neutrophils/100 WBC (Bld) 61.2 % Normal [facility] Comment on above: Order Comment: Speci men Type: BLOOD SPECIMENOrdering Facility: [facility] Address: [address] [place] [address] Performed By: #### 5 7021-8 ####[facility]CLIA [id number] [place] [address] [place] Nucleated RBC (Bld) [#/Vol] 10*3/uL Normal <0.01 [facility] Comment on above: Order Comment: Speci men Type: BLOOD SPECIMENOrdering Facility: [facility] Address: [address] [place] [address] Performed By: #### 5 7021-8 ####[facility] LABIA [id number] [place] [address] [place] Nucleated RBC/100 WBC (Bld) [Ratio] 0.0 /100 WBC Normal [facility] Comment on above: Order Comment: Speci men Type: BLOOD SPECIMENOrdering Facility: [facility] Address: [address] [place] [address] Performed By: #### 5 7021-8 ####[facility] LABIA [id number] [place] [address] [place] Platelet mean volume (Bld) [Entitic vol] 12.9 fL High 9.0-12.7 [facility] Comment on above: Order Comment: Speci men Type: BLOOD SPECIMENOrdering Facility: [facility] Address: [address] [place] [address] Performed By: #### 5 7021-8 ####[facility]CLIA [id number] [place] [address] [place] Platelets (Bld) [#/Vol] 254 10*3/uL Normal 150-400 [facility] Comment on above: Order Comment: Speci men Type: BLOOD SPECIMENOrdering Facility: [facility] Address: [address] [place] [address] Performed By: #### 5 7021-8 ####[facility] LABCLIA [id number] [place] [id number] [place] RBC (Bld) [#/Vol] 4.99 10*6/uL Normal 4.20-6.00 [facility] Comment on above: Order Comment: Speci men Type: BLOOD SPECIMENOrdering Facility: [facility] Address: [address] [place] [address] Performed By: #### 5 7021-8 ####[facility] LABCLIA [id number] [place] [address] [place] WBC (Bld) [#/Vol] 10.44 10*3/uL Normal 3.70-11.00 [facility] Comment on above: Order Comment: Speci men Type: BLOOD SPECIMENOrdering Facility: [facility] Address: [address] [place] [address] Performed By: #### 5 7021-8 ####[facility] LABIA [id number] [place] [address] [place] CNOVon 05-21-2024 CNOV Office Visit (LIVEWS ) -- BIANCA DELAROSA ([id number]) 1975 M [facility] Date Time Provider Department 05/21/24 3:40 PM DOMINIK KELLEY During your visit today, we recorded the following information about you: Pulse Respiration Blood pressure Weight 105/minute 14/minute 150/98 134.7 kg Dominik Kelley, TAX ACCOUNTANT.CIRCUIT COURT CLERK 05/21/2024 3:57 PM Signed Chief Complaint Patient presents with: Arm Pain Pain (Shoulder Pain) HPI Bianca Delarosa is a 48 year old male who presents here today for Above Complaints.. Patient presents for right shoulder pain x3 week. Patient reports pain when lifting or when extending behind him. Past medical history, appointments, medications, allergies reviewed. Previous Medical History PAST MEDICAL HISTORY 09/24/2023: Acute hypoxemic respiratory failure due to COVID-19 ([facility]) 03/31/2014: Agitation 03/31/2014: Allergic rhinitis 03/31/2014: Allergy-induced asthma Comment: Mild intermitant 12/07/2022: Attention 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 Comment: Substance agreement signed 12/2022, Tox screen done 12/202209/26/2018: Current use of proton pump inhibitor 01/27/2017: Diabetic eye exam ([facility]) Comment: Last eye exam: 03/05/2019 03/31/2014: Diverticulosis 03/31/2014: Dyslipidemia Comment: Low HDL, High Trigs 03/31/2014: Elevated antinuclear antibody (JALEEL) level 03/31/2014: Family history of malignant neoplasm of gastrointestinal tract 06/22/2020: ISABELLA (generalized anxiety disorder) 09/26/2018: GERD without esophagitis 03/31/2014: Hiatal hernia 09/23/2023: History of COVID-19 Comment: 2021, 09/202303/31/2014: Hx of colonic polyp Comment: Needs next colonoscopy 08/202211/16/2019: Lump Comment: benign left palm 09/26/2018: Major depressive disorder with single episode, in partial remission ([facility]) 09/11/2015: Migraine without aura and without status migrainosus, not intractable 03/31/2014: Mood disorder ([facility]) 02/27/2018: Multiple thyroid nodules Comment: Seen Dr. Lazaro 03/201802/27/2018: Multiple thyroid nodules Comment: US 03/2020 per radiology no further f/u needed.. All benign Biopsy 03/[address] Lazaro. Benign. 10/21/2022: Obesity, Class II, BMI 35-39.9 01/27/2017: Obstructive sleep apnea syndrome Comment: On CPAP 03/25/2013: Other joint derangement, not elsewhere classified, lower leg 07/28/2020: Primary insomnia 04/20/2021: QT prolongation Comment: Seen [facility] 04/19/2021: Retsof to be benign and related to anti-depressants. No changes needed. 03/31/2014: TMJ (temporomandibular joint disorder) Comment: Right side 01/19/2017: Type 2 diabetes mellitus without complication, without long-term current use of insulin ([facility]) 12/17/2014: Well adult exam Comment: Last done:11/16/2019 Previous Surgical History PAST SURGICAL HISTORY 2004: APPENDECTOMY HX 04/2021: ARTHROTOMY W/MENISCUS REPAIR KNEE; Right 06/2012: COLONOSCOPY Comment: Dr. Corrigan +polyp, repeat 5 yrs 08/30/2022: COLONOSCOPY Comment: repeat in 5 years 08/16/2017: COLONOSCOPY FLX DX W/COLLJ SPEC WHEN PFRMD Comment: Colonoscopy, repeat 5 yrs, Dr. Bliss 2009: PAST SURGICAL HISTORY OF Comment: benign cysts: 1 from head and 2 from neck 1979: TONSILLECTOMY AND ADENOIDECTOMY AGE 11/> No date: TONSILLECTOMY HX Family History FAMILY HISTORY Problem Relation Age of Onset Colon Cancer Father 52 Coronary Artery Disease Father Coronary Artery Disease Mother 60's Hypertension Mother No Known Problems Brother No Known Problems Brother No Known Problems Brother Coronary Artery Disease Maternal Grandmother 60's Stroke Maternal Grandfather Colon Cancer Paternal Uncle 49 Alzheimer's Disease No Family History Prostate Cancer No Family History Breast Cancer No Family History Hyperlipidemia No Family History Kidney Disease No Family History Seizures No Family History Thyroid No Family History No Ocular Disease No Family History Patient Allergies ALLERGIES Allergen Reactions Topamax [Topiramate] Mental Status Change Unable to remember anything Celexa [Citalopram * Other: See Comments uneffective Effexor [Venlafaxin* Other: See Comments Sexual side affect Reglan [Metoclopram* Unknown Zoloft [Sertraline * Other: See Comments drowsy Current Medications Current Outpatient Medications on File Prior to Visit Medication Sig methylphenidate CD (METADATE CD) 10 mg biphasic capsule Take 1 capsule by mouth once daily for 30 days. TRESIBA FLEXTOUCH U-100 100 unit/mL (3 mL) injection pen Inject 60 units subcutaneous daily at bedtime. Dispense 60 mL for 90 day supply. HUMALOG KWIKPEN INSULIN 100 unit/mL Inject subcutaneously 20 units breakfast, 20 units lunch, 20 units dinner plus sliding scale up to 82 units daily. Dispense 75 mL for a 90 day supply. atorvastatin (LIPITOR) 40 mg tablet Take 1 tablet by mouth once daily. (more content not included)... Normal [facility] Comprehensive metabolic 2000 panelon 05-21-2024 Albumin [Mass/Vol] 4.3 g/dL Normal 3.9-4.9 [facility] Comment on above: Order Comment: Speci men Type: BLOOD SPECIMEN [facility] Address: [address] [place] [address] Performed By: #### 6 768-6, 2132-06, #### [facility] CLIA [id number] [address] [place] [address] [place] ALP [Catalytic activity/Vol] 168 U/L High 38-113 [facility] Comment on above: Order Comment: Speci men Type: BLOOD SPECIMEN [facility] Address: [address] [place] [address] Performed By: #### 6 768-6, 2132-06, #### [facility] CLIA [id number] [address] [place] [address] [place] ALT [Catalytic activity/Vol] 24 U/L Normal 10-54 [facility] Comment on above: Order Comment: Speci men Type: BLOOD SPECIMEN [facility] Address: [address] [place] [address] Performed By: #### 6 768-6, 2132-06, #### [facility] CLIA [id number] [address] [place] [address] [place] Anion gap [Moles/Vol] 13 mmol/L Normal 8-15 [facility] Comment on above: Order Comment: Speci men Type: BLOOD SPECIMEN [facility] Address: [address] [place] [address] Performed By: #### 6 768-6, 2132-06, #### [facility] CLIA [id number] [address] [place] [address] [place] AST [Catalytic activity/Vol] 36 U/L Normal 14-40 [facility] Comment on above: Order Comment: Speci men Type: BLOOD SPECIMEN [facility] Address: [address] [place] [address] Performed By: #### 6 768-6, 2132-06, #### [facility] CLIA [id number] [address] [place], [place] [address] [place] Bilirubin [Mass/Vol] 0.3 mg/dL Normal 0.2-1.3 [facility] Comment on above: Order Comment: Speci men Type: BLOOD SPECIMEN [facility] Address: [address] [place] [address] Performed By: #### 6 768-6, 2132-06, #### [facility] CLIA [id number] [address] [place] [address] [place] Calcium [Mass/Vol] 9.4 mg/dL Normal 8.5-10.2 [facility] Comment on above: Order Comment: Speci men Type: BLOOD SPECIMEN [facility] Address: [address] [place] [address] Performed By: #### 6 768-6, 2132-06, #### [facility] CLIA [id number] [address] [place], [place] [address] [place] Chloride [Moles/Vol] 98 mmol/L Normal 98-107 [facility] Comment on above: Order Comment: Speci men Type: BLOOD SPECIMEN [facility] Address: [address] [place], [place] [address] Performed By: #### 6 768-6, 2132-06, #### [facility] CLIA [id number] [address] [place], [place] [address] [place] CO2 [Moles/Vol] 22 mmol/L Normal 22-30 [facility] Comment on above: Order Comment: Speci men Type: BLOOD SPECIMEN [facility] Address: [address] [place] [address] Performed By: #### 6 768-6, 2132-06, #### [facility] CLIA [id number] [address] [place], [place] [address] [place] Creatinine [Mass/Vol] 0.73 mg/dL Normal 0.73-1.22 [facility] Comment on above: Order Comment: Speci men Type: BLOOD SPECIMEN [facility] Address: [address] [place] [address] Performed By: #### 6 768-6, 2132-06, #### [facility] CLIA [id number] [address] [place] [address] [place] Creatinine and Glomerular filtration rate.predicted panel (S/P/Bld) 112 mL/min/1.73m??? Normal >=60 [facility] Comment on above: Order Comment: Speci men Type: BLOOD SPECIMEN [facility] Address: [address] [place] [address] Result Comment: Tia mated Glomerular Filtration Rate (eGFR) is calculated using the 2020 CKD-EPI creatinine equation. This equation utilizes serum creatinine, sex, and age as parameters. The creatinine assay has traceable calibration to isotope dilution-mass spectrometry. Refer to KDIGO guidelines for clinical interpretation. In patients with unstable renal function, e.g. those with acute kidney injury, the eGFR may not accurately reflect actual GFR. Performed By: #### 6 768-6, 9, #### [facility] CLIA [id number] [address] [place] [address] [place] Glucose [Mass/Vol] 361 mg/dL High 74-99 [facility] Comment on above: Order Comment: Catherine hendrix Type: BLOOD SPECIMEN [facility] Address: [address] [place] [address] Result Comment: The [place] Diabetes Association (ADA) provides guidance for cutoff values for fasting glucose and random glucose. The ADA defines fasting as no caloric intake for at least 8 hours. Fasting plasma glucose results between 100 to 125 mg/dL indicate increased risk for diabetes (prediabetes). Fasting plasma glucose results greater than or equal to 126 mg/dL meet the criteria for diagnosis of diabetes. In the absence of unequivocal hyperglycemia, results should be confirmed by repeat testing. In a patient with classic symptoms of hyperglycemia or hyperglycemic crisis, random plasma glucose results greater than or equal to 200 mg/dL meet the criteria for diagnosis of diabetes. Reference: Standards of Medical Care in Diabetes 2016, [place] Diabetes Association. Diabetes Care. 2016.39(Suppl 1). Performed By: #### 6 768-6, 2132-06, #### [facility] CLIA [id number] [address] [place] [address] [place] Potassium [Moles/Vol] 4.3 mmol/L Normal 3.7-5.1 [facility] Comment on above: Order Comment: Catherine hendrix Type: BLOOD SPECIMEN [facility] Address: [address] [place] [address] Performed By: #### 6 768-6, 2132-06, #### [facility] CLIA [id number] [address] [place] [address] [place] Protein [Mass/Vol] 6.7 g/dL Normal 6.3-8.0 [facility] Comment on above: Order Comment: Catherine hendrix Type: BLOOD SPECIMEN [facility] Address: [address] [place] [address] Performed By: #### 6 768-6, 2132-06, #### [facility] CLIA [id number] [address] [place] [address] [place] Sodium [Moles/Vol] 133 mmol/L Low 136-144 [facility] Comment on above: Order Comment: Catherine hendrix Type: BLOOD SPECIMEN [facility] Address: [address] [place] [address] Performed By: #### 6 768-6, 2132-06, #### [facility] CLIA [id number] [address] [place] [address] [place] Urea nitrogen [Mass/Vol] 9 mg/dL Normal 9-24 [facility] Comment on above: Order Comment: Catherine hendrix Type: BLOOD SPECIMEN [facility]: [facility] Address: [address] [place] [address] Performed By: #### 6 768-6, 2132-06, #### [facility] CLIA [id number] [address] [place] [address] [place] HbA1c (Bld)on 05-21-2024 Average glucose Estimated from glycated hemoglobin (Bld) [Mass/Vol] 295 mg/dL Normal [facility] Comment on above: Order Comment: Catherine hendrix Type: BLOOD SPECIMEN [facility]: [facility] Address: [address] [place] [address] Result Comment: eAG: (Estimated average glucose) is a calculated value from HgbA1c and is senior customer service representative of the average blood glucose level in the last 2-3 month period. Performed By: #### 6 768-6, 2132-06, #### [facility] CLIA [id number] [address] [place], [place] [address] [place] HbA1c (Bld) [Mass fraction] 11.9 % High 4.3-5.6 [facility] Comment on above: Order Comment: Catherine hendrix Type: BLOOD SPECIMEN [facility] Facility: [facility] Address: [address] [place] [address] Result Comment: [place] Diabetes Association guidelines indicate that patients with HgbA1c in the range 5.7-6.4% are at increased risk for development of diabetes, and intervention by lifestyle modification may be beneficial. HgbA1c greater or equal to 6.5% is considered diagnostic of diabetes. Performed By: #### 6 768-6, 2132-06, #### [facility] CLIA [id number] [address] [place] [address] [place] LIPID PANEL, NONFASTINGon Cholesterol [Mass/Vol] 213 mg/dL High <200 [facility] Comment on above: Order Comment: Catherine men Type: BLOOD SPECIMEN Ordering Facility: [facility] Address: [address] [place] [address] Result Comment: <200 mg/dL, Desirable 200-239 mg/dL, Borderline high >239 mg/dL, High Performed By: #### 6 768-6, 2132-06, #### [facility] CLIA [id number] [address] [place] [address] [place] HDL CHOLESTEROL, NF 24 mg/dL Low >39 [facility] Comment on above: Order Comment: Catherine hendrix Type: BLOOD SPECIMEN Ordering Facility: [facility] Address: [address] [place] [address] Result Comment: 40-5 9 mg/dL, Acceptable >59 mg/dL, High: Negative risk factor for coronary heart disease <40 mg/dL, Low: Positive risk factor for coronary heart disease Performed By: #### 6 768-6, 2132-06, #### [facility] CLIA [id number] [address] [place] [address] [place] LDL CHOLESTEROL, NF Normal [facility] Comment on above: Order Comment: Catherine hendrix Type: BLOOD SPECIMEN Ordering Facility: [facility] Address: [address] [place] [address] Result Comment: Unab le to calculate due to increased Triglycerides. A Direct LDL Cholesterol measurement will not be performed. If clinically indicated, a fasting Basic Lipid Panel (LIPB) may be ordered. Performed By: #### 6 768-6, 2132-06, #### [facility] CLIA [id number] [address] [place] [address] [place] LDL/HDL RATIO, NF Normal [facility] Comment on above: Order Comment: Speci men Type: BLOOD SPECIMEN Ordering Facility: [facility] Address: [address] [place] [address] Result Comment: Unab le to calculate due to elevated Triglycerides. Reference: 1. National Cholesterol Education Program ATP III Guideline At-A-Glance Quick Desk Reference: National Heart, Lung, and Blood [place]. National Institutes of Health. 2001: NIH Publication No. 01-3305. 2. An International Atherosclerosis Society position paper: global recommendations for the management of dyslipidemia: executive summary, Atherosclerosis. 2014: 232(2):410-413. Performed By: #### 6 768-6, 2132-06, #### [facility] CLIA [id number] [address] [place] [address] [place] NON HDL CHOL, NF 189 mg/dL High <130 [facility] Comment on above: Order Comment: Catherine hendrix Type: BLOOD SPECIMEN Ordering Facility: [facility] Address: [address] [place] [address] Result Comment: <130 mg/dL, Optimal 130-159 mg/dL, Near optimal/above optimal 160-189 mg/dL, Borderline high 190-219 mg/dL, High >219 mg/dL, Very high Secondary prevention optimal non HDL Cholesterol levels are recommended to be <100 mg/dL Performed By: #### 6 768-6, 2132-06, #### [facility] CLIA [id number] [address] [place] [address] [place] T CHOL/HDL RATIO NF 8.88 mg/dL High <5.10 [facility] Comment on above: Order Comment: Speci men Type: BLOOD SPECIMEN Ordering Facility: [facility] Address: [address] [place] [address] Performed By: #### 6 768-6, 2132-06, #### [facility] CLIA [id number] [address] [place] [address] [place] TRIGLYCERIDES, NF 1046 mg/dL High <150 [facility] Comment on above: Order Comment: Speci men Type: BLOOD SPECIMEN Ordering Facility: [facility] Address: [address] [place] [address] Result Comment: <150 mg/dL, Normal 150-199 mg/dL, Borderline high 200-499 mg/dL, High >499 mg/dL, Very high Performed By: #### 6 768-6, 2132-06, #### [facility] CLIA [id number] [address] [place] [address] [place] VLDL CHOLESTEROL, NF Normal [facility] Comment on above: Order Comment: Speci men Type: BLOOD SPECIMEN Ordering Facility: [facility] Address: [address] [place] [address] Result Comment: Unab le to calculate due to elevated Triglycerides. Performed By: #### 6 768-6, 2132-06, #### [facility] CLIA [id number] [address] [place] [address] [place] TSH SerPl-aCncon 05-21-2024 TSH Qn 1.330 m[IU]/L Normal 0.270-4.200 [facility] Comment on above: Order Comment: Speci men Type: BLOOD SPECIMEN Ordering Facility: [facility] Address: [address] [place] [address] Performed By: #### 6 768-6, 2132-06, #### [facility] CLIA [id number] [address] [place] [address] [place] XR SHLDR >/=3V AP/JUVENCIO AP/OTH R RTon 05-21-2024 XR SHLDR >/=3V AP/JUVENCIO AP/OTHR RT * * *Final Report* * * DATE OF EXAM: May 21 2024 4:17PM WOX 5253 - XR SHLDR >/=3V AP/JUVENCIO AP/OTHR RT / PROCEDURE REASON: Acute pain of right shoulder * * * * Physician Interpretation * * * * XR SHLDR >/=3V AP/JUVENCIO AP/OTHR RT HISTORY: Acute pain of right shoulder COMPARISON: None. FINDINGS: No evidence of fracture, dislocation, or destructive process. Normal acromioclavicular joint. Normal glenohumeral joint. _ _ IMPRESSION: No acute bone abnormality. Franchise Specialist: PSCB Transcribe Date/Time: May 26 2024 7:31P Dictated by : MARYANN MURILLO MD This examination was interpreted and the report reviewed and electronically signed by: MARYANN MURILLO MD on May 26 2024 7:32PM EST [id number] Normal [facility] XR Shoulder - right 3 Viewso n 05-21-2024 Radiology Study observation (narrative) [facility] Culture, Anaerobic Any Sourc venancio 03-15-2024 CUAN Results faxed on 03/15/24 by SHARRON . Clostridium perfringens is generally SUSCEPTIBLE to Penicillin, Metronidazole, and Meropenem. It is showing increasing RESISTANCE to Clindamycin and Tetracycline. Bacteria Spec Anaerobe Cult Clostridium species other than perfringens are generally SUSCEPTIBLE to Piperacillin, Beta-lactams and Beta-lactamase inhibitors, Carbapenems, Metronidazole and Vancomycin. They are generally RESISTANT to Ampicillin, Aminoglycosides, Trimethoprim-sulfamethoxaz ole, and Clindamycin. Clostridium perfringens Normal [facility] Comment on above: Performed By: #### M 100.3000, M100.2000, M100.4001 ####[facility] [address] [place], [address] Wound Cultureon 03-14-2024 WC Klebsiella pneumonia e sp pneum Amount Growth 3+ Escherichia coli Amount Growth Rare Klebsiella pneumoniae sp pneum: REACTION Ampicillin Islt YASMINE >=32 R Ampicillin+Sulbac Islt YASMINE 4 S ceFAZolin Islt YASMINE <=4 S Cefepime Islt YASMINE <=0.12 S cefTRIAXone Islt YASMINE <=0.25 S Ciprofloxacin Islt YASMINE <=0.25 S Ertapenem Islt YASMINE <=0.12 S B-Lactamase Extended Susc Islt NEG Gentamicin Islt YASMINE <=1 S Imipenem Islt YASMINE <=0.25 S levoFLOXacin Islt YASMINE <=0.12 S Pip+Tazo Islt YASMINE <=4 S Tobramycin Islt YASMINE <=1 S TMP SMX Islt YASMINE <=20 S Escherichia coli: REACTION Ampicillin Islt YASMINE 8 S Ampicillin+Sulbac Islt YASMINE 4 S ceFAZolin Islt YASMINE <=4 S Cefepime Islt YASMINE <=0.12 S cefTRIAXone Islt YASMINE <=0.25 S Ciprofloxacin Islt YASMINE <=0.25 S Ertapenem Islt YASMINE <=0.12 S B-Lactamase Extended Susc Islt NEG Gentamicin Islt YASMINE <=1 S Imipenem Islt YASMINE <=0.25 S levoFLOXacin Islt YASMINE <=0.12 S Pip+Tazo Islt YASMINE <=4 S Tobramycin Islt YASMINE <=1 S TMP SMX Islt YASMINE <=20 S Normal [facility] Comment on above: Performed By: #### M 100.3000, M100.2000, M100.4001 ####[facility] [address] [place], [address] Surgery Visit Reporton 03-13 Surgery Visit Report [facility] [address] [place] [address] OFFICE VISIT Date of Service: 03/13/24 MR#: [id number] Acct: [id number] Name: BIANCA DELAROSA Rep #: [id number] : 1975 Provider: Dr. Maranda borges MD Age/Sex: 48/M Location: [facility] Status: Signed Intake Vital Signs 03/10/24 11:13 03/13/24 08:51 Height 6 ft 2 in BP 128/84 H Blood Pressure Location Rt brachial Position Sitting Respiration 18 Pulse 73 Pulse Source Monitor Intake Visit Reasons: S/P Left perirectal abscess Chief Complaint: recheck tressa-rectal abcess Is patient in pain?: No Allergies citalopram Allergy (Unknown, Verified 03/13/24 08:52) Unknown venlafaxine Allergy (Unknown, Verified 03/13/24 08:52) Unknown metoclopramide (From Reglan) Allergy (Verified 03/13/24 08:52) weirds me out sertraline (From Zoloft) Allergy (Verified 03/13/24 08:52) sexual side effects topiramate (From Topamax) Allergy (Verified 03/13/24 08:52) Unknown Medications ???Medication ???Instructions ???Recorded ???Confirmed ???Type esomeprazole magnesium 40 mg 40 mg PO QHS gerd 10/10/17 03/13/24 History capsule,delayed release fenofibrate 50 mg capsule 54 mg PO DAILY cholesterol 10/10/17 03/13/24 History multivitamin 1 ea PO DAILY supplement 10/10/17 03/13/24 History atorvastatin 20 mg tablet 20 mg PO DAILY 03/22/18 03/13/24 History fluoxetine 40 mg capsule 60 mg PO QDAY 03/22/18 03/13/24 History metformin 500 mg tablet 1,000 mg PO BID diabetes 03/22/18 03/13/24 History Fish Oil 1,000 mg Capsule 1,000 mg PO BID 10/20/18 03/13/24 History doxepin 10 mg capsule 10 mg PO QHS 10/20/18 03/13/24 History olanzapine 2.5 mg tablet 2.5 mg PO QHS 10/20/18 03/13/24 History zonisamide 25 mg capsule 25 mg PO DAILY 10/20/18 03/13/24 History empagliflozin 25 mg tablet 25 mg PO DAILY #30 tabs 10/22/18 03/13/24 Rx buspirone 15 mg tablet mg 04/14/23 03/13/24 History duloxetine 60 mg capsule,delayed mg PO 04/14/23 03/13/24 History release fluticasone propionate 50 1 spray intranasal DAILY PRN 04/14/23 03/13/24 History mcg/actuation nasal allergic symptoms spray,suspension insulin lispro protamine-lispro subcut 04/14/23 03/13/24 History 100 unit/mL (75-25) subcutaneous pen methylphenidate HCl 10 mg biphasic mg PO 04/14/23 03/13/24 History 50-50 capsule,extended release amoxicillin 875 mg-potassium 1 tab PO Q12H #14 tabs 03/10/24 03/13/24 Rx clavulanate 125 mg tablet oxycodone-acetaminophen 5 mg-325 1 - 2 tab PO Q6H PRN pain 3 days 03/10/24 03/13/24 Rx mg tablet #14 tabs PFSH Medical History History of rectal abscess Multiple thyroid nodules Restrictive airway disease Abnormal chest CT Pneumonia Acute respiratory failure Shortness of breath Community acquired pneumonia Chronic headache Acute respiratory failure with hypoxia GERD (gastroesophageal reflux disease) Anxiety and depression Diabetes mellitus, type II Obesity (BMI 30-39.9) HLD (hyperlipidemia) MIKE (obstructive sleep apnea) Surgical History Hx of drainage of abscess ( 04/2023) Hx of appendectomy Hx of tonsillectomy Family History Father Colon cancer at age 53 Heart disease Myocardial infarction Social History Smoking Status: Never smoker second hand exposure: No alcohol intake: never substance use type: does not use caffeine: Yes what type of physical activity do you participate in: none frequency: does not exercise seatbelt use: always HPI HPI HPI: 48-year-old male presents status post incision and drainage of left perirectal abscess in the ER on Monday. Patient states the pain is much improved still has twinges of discomfort. Patient states they are only able to pack it for a couple times as it became too shallow. Patient states there is only a small amount of drainage on the dressing. ROS General General: No weight change, appetite, fatigue, colon cancer, breast cancer or weakness HEENT HEENT: No difficulty swallowing, eye injury, eye surgery, swollen glands or hoarseness Endo Endocrine: Yes diabetes mellitus; No thyroid disease, thyroid cancer, Hair loss, heat intolerance or cold intolerance Skin Skin: No rash or changing moles Musc Musculoskeletal: No back problems, arthritis, rheumatoid arthritis, gout or joint pain Cardio Cardiovascular: No murmur, pacemaker, heart disease, atrial fibrillation, high blood pressure, heart attack, heart stent, palpitations, shortness of breat with exertion or chest pain Psych Psychiatric: Yes depression and anxiety Resp Respira (more content not included)... Normal [facility] Gram Stainon 03-11-2024 GS Gram Stain 4+ Gram negative rods 4+ White Blood Cells No Epithelial cells Normal [facility] Comment on above: Performed By: #### M 100.3000, M100.2000, M100.4001 ####[facility] [address] [place], [address] Basic Metabolic Profile (BMP )on 03-10-2024 BUN/CRE 14.3 RATIO Normal 10-20 [facility] Comment on above: Performed By: #### L 100.0100, L500.2500 ####[facility] [address] [place], [address] CA,Total 9.1 mg/dL Normal 8.5-10.1 [facility] Comment on above: Performed By: #### L 100.0100, L500.2500 ####[facility] [address] [place], [address] Chloride [Moles/Vol] 104 mmol/L Normal 98-107 [facility] Comment on above: Performed By: #### L 100.0100, L500.2500 ####[facility] [address] [place], [address] CO2 [Moles/Vol] 25.0 mmol/L Normal 21.0-32.0 [facility] Comment on above: Performed By: #### L 100.0100, L500.2500 ####[facility] [address] [place], [address] Creatinine [Mass/Vol] 0.84 mg/dL Normal 0.70-1.30 [facility] Comment on above: Result Comment: The validity of the calculated GFR GFRAA in patients over 70 years has not been determined. Clinical correlation is essential. Performed By: #### L 100.0100, L500.2500 ####[facility] [address] [place], [address] ECRCL 154.93 ml/min Normal [facility] Comment on above: Performed By: #### L 100.0100, L500.2500 ####[facility] [address] [place], [address] EST GFR - AA 124 mL/min Normal >60 [facility] Comment on above: Result Comment: Afri can [place]an GFR Calc Performed By: #### L 100.0100, L500.2500 ####[facility] [address] [place], [address] GAP 7 Normal 5-15 [facility] Comment on above: Performed By: #### L 100.0100, L500.2500 ####[facility] [address] [place], [address] GFR/1.73 sq M.predicted among non-blacks MDRD (S/P/Bld) [Vol rate/Area] 103 mL/min/{1.73_m2} Normal >60 [facility] Comment on above: Result Comment: Non- GFR Calc Performed By: #### L 100.0100, L500.2500 ####[facility] [address] [place], [address] Glucose [Mass/Vol] 288 mg/dL High 74-106 [facility] Comment on above: Result Comment: Gluc ose result greater than or equal to 200 mg/dL suggests DIABETES MELLITUS per A.D.A. criteria. Performed By: #### L 100.0100, L500.2500 ####[facility] [address] [place], [address] Potassium [Moles/Vol] 3.8 mmol/L Normal 3.5-5.1 [facility] Comment on above: Performed By: #### L 100.0100, L500.2500 ####[facility] [address] [place], [address] Sodium [Moles/Vol] 136 mmol/L Normal 136-145 [facility] Comment on above: Performed By: #### L 100.0100, L500.2500 ####[facility] [address] [place], [address] Urea nitrogen [Mass/Vol] 12 mg/dL Normal 7-18 [facility] Comment on above: Performed By: #### L 100.0100, L500.2500 ####[facility] [address] [place], [address] CBC W/Diff, Automatedon 06-0 2-2023 Absolute Lymph 1.88 X10 3/uL Normal 0.83-4.51 [facility] Comment on above: Performed By: #### L 100.0100, L500.2500 ####[facility] [address] [place], [address] Absolute Neut 6.9 X10 3/uL Normal 2.0-7.7 [facility] Comment on above: Performed By: #### L 100.0100, L500.2500 ####[facility] [address] [place], [address] Basophils/100 WBC (Bld) 0.5 % Normal 0-1 [facility] Comment on above: Performed By: #### L 100.0100, L500.2500 ####[facility] [address] [place], [address] Eosinophils/100 WBC (Bld) 0.8 % Normal 0-5 [facility] Comment on above: Performed By: #### L 100.0100, L500.2500 ####[facility] [address] [place], [address] Erythrocyte distribution width (RBC) [Ratio] 12.1 % Normal 11.6-14.6 [facility] Comment on above: Performed By: #### L 100.0100, L500.2500 ####[facility] [address] [place], [address] Hematocrit (Bld) [Volume fraction] 45.1 % Normal 40-54 [facility] Comment on above: Performed By: #### L 100.0100, L500.2500 ####[facility] [address] [place], [address] Hemoglobin (Bld) [Mass/Vol] 15.5 g/dL Normal 13.0-16.5 [facility] Comment on above: Performed By: #### L 100.0100, L500.2500 ####[facility] [address] [place], [address] IG% 0.400 Normal 0.0-0.9 [facility] Comment on above: Result Comment: IG% - Immature Granulocytes (promyelocytes, myelocytes and metamyelocytes) > 1% indicates that a LEFT SHIFT is Present. Performed By: #### L 100.0100, L500.2500 ####[facility] [address] [place], [address] Lymphocytes/100 WBC (Bld) 19.8 % Normal 19-41 [facility] Comment on above: Performed By: #### L 100.0100, L500.2500 ####[facility] [address] [place], [address] MCH (RBC) [Entitic mass] 30.8 pg Normal 27.0-32.0 [facility] Comment on above: Performed By: #### L 100.0100, L500.2500 ####[facility] [address] [place], [address] MCHC (RBC) [Mass/Vol] 34.4 g/dL Normal 32-36 [facility] Comment on above: Performed By: #### L 100.0100, L500.2500 ####[facility] [address] [place], [address] MCV (RBC) [Entitic vol] 89.5 fL Normal 80-94 [facility] Comment on above: Performed By: #### L 100.0100, L500.2500 ####[facility] [address] [place], [address] Monocytes/100 WBC (Bld) 6.0 % Normal 0-10 [facility] Comment on above: Performed By: #### L 100.0100, L500.2500 ####[facility] [address] [place], [address] Neutrophils/100 WBC (Bld) 72.5 % High 47-70 [facility] Comment on above: Performed By: #### L 100.0100, L500.2500 ####[facility] [address] [place], [address] Nucleated RBC (Bld) [#/Vol] 0 10*3/uL Normal 0-5 [facility] Comment on above: Performed By: #### L 100.0100, L500.2500 ####[facility] [address] [place], [address] Platelet mean volume (Bld) [Entitic vol] 13.0 fL High 6.2-12.0 [facility] Comment on above: Performed By: #### L 100.0100, L500.2500 ####[facility] [address] [place], [address] Platelets (Bld) [#/Vol] 219 10*3/uL Normal 150-450 [facility] Comment on above: Performed By: #### L 100.0100, L500.2500 ####[facility] [address] [place], [address] RBC (Bld) [#/Vol] 5.04 10*6/uL Normal 4.6-6.2 [facility] Comment on above: Performed By: #### L 100.0100, L500.2500 ####[facility] [address] [place], [address] RDW SD 39.0 fl Normal 35.1-43.9 [facility] Comment on above: Performed By: #### L 100.0100, L500.2500 ####[facility] [address] [facility] [place], [address] WBC (Bld) [#/Vol] 9.5 10*3/uL Normal 4.4-11.0 [facility] Comment on above: Performed By: #### L 100.0100, L500.2500 ####[facility] [address] [facility] [place], [address] Consultation - Surgicalon Consultation - Surgical [facility] Medical Records Department [address] [place] [address] Consultation - Surgical 03/10/24 1448 MR#: [id number] Acct: [id number] Name: BIANCA DELAROSA Rep #: [id number] : 1975 48 From: Maranda Hansen MD PCP: Dr. Humberto Jackson MD Status:[facility] ER Location: ED Assessment Plan Assessment/Plan (1) Perirectal abscess: PLAN: Plan Discussed with patient and his plan for incision and drainage of perirectal abscess with sedation in the ER. Risk include not limited to, bleeding, infection, need for further surgery, recurrent abscesses. Patient and his had no further questions this time. They were agreeable plan. Maranda Hansen M.D. Pager: [phone] [facility] [address] [place] [address], [facility], [address] [place] [address] Office: [phone] HPI Consult Data Date of Consult: 03/10/24 HPI Narrative HPI Narrative: BIANCA DELAROSA, is a 48 M who presents to the ER due to left perirectal pain for the last 2 to 3 days. Patient did have a history of perirectal abscess which was drained in the OR in April 2023 no obvious fistula was found at that point. Patient denies any drainage but does have increased pain. Rates it currently a 01/16. CT abdomen pelvis was done showed a left perirectal abscess 2 cm x 4 cm. [facility] Medical History (Updated 03/10/24 @ 14:[address] Maranda Hansen MD) History of rectal abscess Multiple thyroid nodules Restrictive airway disease Abnormal chest CT Pneumonia Acute respiratory failure Shortness of breath Community acquired pneumonia Chronic headache Acute respiratory failure with hypoxia GERD (gastroesophageal reflux disease) Anxiety and depression Diabetes mellitus, type II Obesity (BMI 30-39.9) HLD (hyperlipidemia) MIKE (obstructive sleep apnea) Home Medications ???Medication ???Instructions ???Recorded ???Last Taken ???Type esomeprazole magnesium 40 mg 40 mg PO QHS gerd 10/10/17 10/19/18 History capsule,delayed release fenofibrate 50 mg capsule 54 mg PO DAILY cholesterol 10/10/17 10/20/18 History multivitamin 1 ea PO DAILY supplement 10/10/17 10/20/18 History atorvastatin 20 mg tablet 20 mg PO DAILY 03/22/18 10/20/18 History fluoxetine 40 mg capsule 60 mg PO QDAY 03/22/18 10/20/18 History metformin 500 mg tablet 1,000 mg PO BID diabetes 03/22/18 10/20/18 History Fish Oil 1,000 mg Capsule 1,000 mg PO BID 10/20/18 10/20/18 History doxepin 10 mg capsule 10 mg PO QHS 10/20/18 10/19/18 History olanzapine 2.5 mg tablet 2.5 mg PO QHS 10/20/18 10/19/18 History zonisamide 25 mg capsule 25 mg PO DAILY 10/20/18 10/20/18 History empagliflozin 25 mg tablet 25 mg PO DAILY #30 tabs 10/22/18 Unknown Rx buspirone 15 mg tablet mg 04/14/23 Unknown History duloxetine 60 mg capsule,delayed mg PO 04/14/23 Unknown History release fluticasone propionate 50 1 spray intranasal DAILY PRN 04/14/23 Unknown History mcg/actuation nasal allergic symptoms spray,suspension insulin lispro protamine-lispro subcut 04/14/23 Unknown History 100 unit/mL (75-25) subcutaneous pen methylphenidate HCl 10 mg biphasic mg PO 04/14/23 Unknown History 50-50 capsule,extended release Allergy/AdvReac Type Severity Reaction Status Date / Time citalopram Allergy Unknown Unknown Verified 03/10/24 11:16 venlafaxine Allergy Unknown Unknown Verified 03/10/24 11:16 metoclopramide (From Reglan) Allergy weirds me Verified 03/10/24 11:16 out sertraline (From Zoloft) Allergy sexual Verified 03/10/24 11:16 side effects topiramate (From Topamax) Allergy Unknown Verified 03/10/24 11:16 Family History Father Colon cancer at age 53 Heart disease Myocardial infarction Surgical History (Updated 04/25/23 @ 13:09 by Cynthia Daugherty) Hx of drainage of abscess ( 04/2023) Hx of appendectomy Hx of tonsillectomy Social History Smoking Status: Never smoker second hand exposure: No alcohol intake: never substance use type: does not use caffeine: Yes what type of physical activity do you participate in: none frequency: does not exercise seatbelt use: always Physical Exam Const alert, oriented x3 and no apparent distress HEENT normocephalic and head/scalp atraumatic Resp normal respiratory effort Cardio regular rate GI soft to palpation; Negative for non-distended GI Narrative: Left perirectal abscess fluctuant area about 2 and half centimeters by 2 and half centimeters at 3-4 o'clock on the left. Positive erythema, tender???patient appears to have a skin blister about 3 cm away from the anus to the area of fluctuance. Palpation: Negative for tender or guarding Extremity no clubbing, cyanos (more content not included)... Normal [facility] Discharge Instructionon Discharge Instruction [facility] Medical Records Department [address] [place] [address] Instructions for Home/Discharge Instructions 03/10/24 1454 MR#: [id number] Acct: [id number] Name: BIANCA DELAROSA Rep #: [id number] : 1975 48 From: Maranda Hansen MD PCP: Dr. Humberto Jackson MD Status:REG ER Discharge Instructions Diet Discharge Diet: Light diet - advance as tolerated Dressing / Incision Call your doctor if your incision/area has: Increased Pain/ Swelling, Increased Redness and Swelling at the incision site Change Dressing in: 1 day (Change packing tomorrow-change twice daily) Additional Dressing/Incision Instructions:: Encourage sitz bath's as well as flushing with 10 cc of saline at time of packing change. Follow Up Care Please Follow Up With: Maranda Hansen MD When: Call the office for a follow-up appointment on Monday. [phone] Test Results: Test results from this visit will be discussed in further detail at your follow-up appointment, if applicable. Discharge Plan Triage Chief Complaint: Abscess ED Midlevel Provider: Mani Blum ED Provider: Braeden Reid Dx/Rx/DC Orders Prescriptions: New amoxicillin-pot clavulanate 875-125 mg tablet 1 tab PO Q12H Qty: 14 0RF oxycodone-acetaminophen 5-325 mg tablet 1 - 2 tab PO Q6H PRN (Reason: pain) 3 Days Qty: 14 0RF Continued atorvastatin 20 mg tablet 20 mg PO DAILY fluoxetine 40 mg capsule 60 mg PO QDAY multivitamin 1 EACH tablet 1 ea PO DAILY esomeprazole magnesium 40 MG capsule 40 mg PO QHS fenofibrate 50 MG capsule 54 mg PO DAILY metformin 500 mg tablet 1,000 mg PO BID doxepin 10 MG capsule 10 mg PO QHS olanzapine 2.5 MG tablet 2.5 mg PO QHS zonisamide 25 MG capsule 25 mg PO DAILY Fish Oil 1,000 mg Capsule 1,000 mg PO BID empagliflozin 25 MG tablet 25 mg PO DAILY Qty: 30 0RF buspirone 15 mg tablet Patient Comments: TAKE 1 TABLET BY MOUTH TWICE A DAY insulin lispro protamin-lispro 100 unit/mL (75-25) insulin pen SUBCUT methylphenidate HCl 10 mg capsule,ER biphasic 50-50 PO Patient Comments: TAKE 1 CAPSULE BY MOUTH EVERY DAY duloxetine 60 mg capsule,delayed release(DR/EC) PO Patient Comments: TAKE 1 CAPSULE BY MOUTH ONCE DAILY fluticasone propionate 50 mcg/actuation spray,suspension 1 spray intranasal DAILY PRN (Reason: allergic symptoms) Rx Instructions: administer into each nostril Primary Care Provider: Humberto Jackson Referrals: Humberto Jackson MD [Primary Care Provider] - Maranda Hansen MD [Med Staff - Active Staff] - (Call the office [phone] for a follow-up appointment for Monday.) Print Language: [place] Islander 03/10/24 4628 Maranda Hansen MD CC: Dr. Humberto Jackson MD Signed Normal [facility] Emergency Department Summary on 03-10-2024 Emergency Department Summary [facility] Medical Records Department [address] [place] [address] Emergency Department Summary 03/10/24 MR#: [id number] Acct: [id number] Name: BIANCA DELAROSA Rep #: [id number] : 1975 48 From: Mani Blum [employer] PCP: Dr. Humberto Jackson MD Status:REG ER Location: ED HPI History of Present Illness Chief Complaint: Abscess Narrative Narrative: Patient is a 48-year-old male with history of anxiety, depression, diabetes, obesity who presents to the emergency department for 3 to 4 days of worsening rectal pain, secondary to abscess. Patient had something similar a year ago, had to go to the operating room secondary to the closeness of the rectum. Patient states over the last 3 to 4 days, is having difficulty with any sitting, using the restroom. Patient states he has no fever or chills. Patient the pain is severe. [facility] Medical History (Updated 03/10/24 @ 15:26 by Mani Blum NP-C) History of rectal abscess Multiple thyroid nodules Restrictive airway disease Abnormal chest CT Pneumonia Acute respiratory failure Shortness of breath Community acquired pneumonia Chronic headache Acute respiratory failure with hypoxia GERD (gastroesophageal reflux disease) Anxiety and depression Diabetes mellitus, type II Obesity (BMI 30-39.9) HLD (hyperlipidemia) MIKE (obstructive sleep apnea) Home Medications ???Medication ???Instructions ???Recorded ???Last Taken ???Type esomeprazole magnesium 40 mg 40 mg PO QHS gerd 10/10/17 10/19/18 History capsule,delayed release fenofibrate 50 mg capsule 54 mg PO DAILY cholesterol 10/10/17 10/20/18 History multivitamin 1 ea PO DAILY supplement 10/10/17 10/20/18 History atorvastatin 20 mg tablet 20 mg PO DAILY 03/22/18 10/20/18 History fluoxetine 40 mg capsule 60 mg PO QDAY 03/22/18 10/20/18 History metformin 500 mg tablet 1,000 mg PO BID diabetes 03/22/18 10/20/18 History Fish Oil 1,000 mg Capsule 1,000 mg PO BID 10/20/18 10/20/18 History doxepin 10 mg capsule 10 mg PO QHS 10/20/18 10/19/18 History olanzapine 2.5 mg tablet 2.5 mg PO QHS 10/20/18 10/19/18 History zonisamide 25 mg capsule 25 mg PO DAILY 10/20/18 10/20/18 History empagliflozin 25 mg tablet 25 mg PO DAILY #30 tabs 10/22/18 Unknown Rx buspirone 15 mg tablet mg 04/14/23 Unknown History duloxetine 60 mg capsule,delayed mg PO 04/14/23 Unknown History release fluticasone propionate 50 1 spray intranasal DAILY PRN 04/14/23 Unknown History mcg/actuation nasal allergic symptoms spray,suspension insulin lispro protamine-lispro subcut 04/14/23 Unknown History 100 unit/mL (75-25) subcutaneous pen methylphenidate HCl 10 mg biphasic mg PO 04/14/23 Unknown History 50-50 capsule,extended release amoxicillin 875 mg-potassium 1 tab PO Q12H #14 tabs 03/10/24 Unknown Rx clavulanate 125 mg tablet oxycodone-acetaminophen 5 mg-325 1 - 2 tab PO Q6H PRN pain 3 days 03/10/24 Unknown Rx mg tablet #14 tabs Allergy/AdvReac Type Severity Reaction Status Date / Time citalopram Allergy Unknown Unknown Verified 03/10/24 11:16 venlafaxine Allergy Unknown Unknown Verified 03/10/24 11:16 metoclopramide (From Reglan) Allergy [facility] me Verified 03/10/24 11:16 out sertraline (From Zoloft) Allergy sexual Verified 03/10/24 11:16 side effects topiramate (From Topamax) Allergy Unknown Verified 03/10/24 11:16 Family History Father Colon cancer at age 53 Heart disease Myocardial infarction Surgical History (Updated 04/25/23 @ 13:09 by Cynthia Daugherty) Hx of drainage of abscess ( 04/2023) Hx of appendectomy Hx of tonsillectomy Social History Smoking Status: Never smoker second hand exposure: No alcohol intake: never substance use type: does not use caffeine: Yes what type of physical activity do you participate in: none frequency: does not exercise seatbelt use: always ROS ROS ED ROS Narrative Constitutional: Negative for fever, chills, weight loss, weakness Eyes: Negative for vision loss, vision change, double vision ENT: Negative for any sore throat, ear pain, congestion Cardiovascular: Negative for any chest pain, tightness, palpitations Respiratory: Negative for any cough, sputum production, hemoptysis, dyspnea, dyspnea on exertion, orthopnea Gastrointestinal: Negative for any abdominal pain, nausea, vomiting, diarrhea, constipation, blood in stool, blood in vomit : Negative for any urinary frequency, dysuria, retention, blood in urine Muscle skeletal: Negative for any neck pain, back pain Neurological: Negative for any headache, syncope, dizziness Skin: Negative for any rashes, itching, abrasions, lacerations. Positive for abscess to the left buttock (more content not included)... Normal [facility] Operative Reporton 4 Operative Report [facility] Medical Records Department [address] [place] [address] Operative Report 03/10/24 1451 MR#: [id number] Acct: [id number] Name: BIANCA DELAROSA Rep #: [id number] : 1975 48 From: Maranda Hansen MD PCP: Dr. Humberto Jackson MD Status:DEP ER Location: ED Report of Operation Date of Procedure: 03/10/24 Pre-Operative Diagnosis: Left perirectal abscess Post-Operative Diagnosis: Same Surgery/Procedure Performed:: Incision and drainage of left perirectal abscess Surgeon: Maranda Hansen Type of Anesthesia: Local MAC Anesthesiologist: Braeden Reid Special Medications: Getting Zosyn IV in the ER for left perirectal abscess, sedation per ER physician Specimen's removed: Culture of blood perirectal abscess for anaerobic aerobic Estimated Blood Loss (mL): <10 cc Description of Procedure: Informed consent was obtained. Patient was in the left lateral decubitus position. MAC anesthesia was induced per ER physician. Local anesthesia of 1% lidocaine was infiltrated at the area of planned incision after prepped with Betadine. 15 blade scalpel was used to make incision in a T shape over the fluctuant area about 25 cc of mixture of purulent and maroon bloody drainage expressed. Cultures were obtained. This was irrigated with saline. Quarter inch packing was then placed. With 4 x 4/ABD pad. Patient tolerated procedure well. Complications none 03/10/241935 Cosigner Signature (if applicable): CC: Dr. Humberto Jackson MD; Dr. Maranda Hansen MD Signed ADDENDUM by Dr. Maranda Hansen MD on 03/12/24 at 1423 Multi Select Codes Integumentary Integumentary CPT Codes: 30778 Drainage of skin abscess 03/12/24 1423 Cosigner Signature (if applicable): cc: Dr. Humberto Jackson MD; Dr. Maranda Hansen MD * Signed Normal [facility] Pelvis WITH IV Contraston Pelvis WITH IV Contrast [facility] Imaging Services [address] [place] [address] [id number] Pelvis WITH IV Contrast MR#: [id number] Acct: [id number] Name: BIANCA DELAROSA Rep #: [id number] : 1975 M 48 From: Vivian ballesteros MD PCP: Dr. Humberto Jackson MD Status: REG ER Study: Pelvis WITH IV Contrast Date of Exam: 03/10/24 Exam# [id number] Ordering Dr: Mani Blum [employer] [id number] HISTORY: Rectal abscess. TECHNIQUE: Helically acquired images were obtained of the pelvis after the intravenous administration of 100 mL Isovue-370. A radiation dose optimization technique was used for this scan. 589 images. COMPARISON: 04/14/2023. FINDINGS: VESSELS: Mild atherosclerosis. BOWEL/PERITONEUM: Appendectomy. Colonic diverticulosis without perisigmoid inflammation. No significant free fluid in the pelvis. PELVIC ORGANS: Unremarkable. ABDOMINAL WALL: 2 x 3.9 cm left perianal fluid collection with surrounding stranding extending to the medial buttock . Mildly prominent inguinal lymph nodes, likely reactive. No subcutaneous emphysema of the scrotum or perineum. BONES: No acute fracture or dislocation. No cortical erosion. CT/Pelvis WITH IV Contrast IMPRESSION: Left perianal abscess with left buttock cellulitis. Electronically Signed: Vivian Hilario MD at 13:15 EDT , CC: ANDERSON Blum; Dr. Humberto Jackson MD Franchise Specialist: Signed Normal [facility] US Thyroid glandon [facility] Radiology Study observation (narrative) [facility] US THYROID/PARATHYROIDon US THYROID/PARATHYROID * * *Final Report* * * DATE OF EXAM: Jan 19 2024 3:53PM U 1048 - US THYROID/PARATHYROID / PROCEDURE REASON: E04.2-Multiple thyroid nodules * * * * Physician Interpretation * * * * EXAMINATION: THYROID ULTRASOUND CLINICAL HISTORY: Multiple thyroid nodules TECHNIQUE: Sonography and Doppler imaging of the thyroid was performed. Images were obtained and stored in a permanent archive. MQ: UST_1 COMPARISON: Thyroid ultrasound 03/27/2020 RESULT: Right Lobe: 4.8 x 2.3 x 2.4 cm; homogeneous echogenicity, expected vascular flow. Left Lobe: 5.2 x 2.1 x 2.0 cm; homogeneous echogenicity, expected vascular flow. Isthmus: 0.4 cm The most suspicious thyroid nodule(s) (up to four) as below: NODULE 1: Location: Right upper pole Size: 1.1 x 0.9 x 0.6 cm. Previously 0.8 x 0.8 x 0.5 cm Characteristics: Composition: Solid or almost completely solid, 2 points Echogenicity: Isoechoic, 1 point Shape: [id number]-hmuo-hejw, 0 points Margin: Smooth, 0 points Echogenic foci (add points for all that apply): None, 0 points Internal vascularity: absent Interval growth: Stable TI-RADS Category: TR3 ACR Recommendation: TI-RADS 3 nodule. No FNA or further imaging is advised. NODULE 2: Location: Right mid Size: 1.3 x 1.2 x 1.0 cm. Previously 0.8 x 0.8 x 0.5 cm Characteristics: Composition: Solid or almost completely solid, 2 points Echogenicity: Isoechoic, 1 point Shape: Wumkj-rmhl-ubzo, 0 points Margin: Smooth, 0 points Echogenic foci (add points for all that apply): None, 0 points Internal vascularity: absent Interval growth: Significant interval growth (20% increase in at least two nodule dimensions and a minimal increase of 2 mm, or a 50% or greater increase in volume). TI-RADS Category: TR3 ACR Recommendation: TI-RADS 3 nodule. No FNA or further imaging is advised. NODULE 3: Location: Left lower pole Size: 1.4 x 1.3 x 1.1 cm. Previously 0.9 x 0.8 x 0.6 cm Characteristics: Composition: Mixed cystic and solid, 1 point Echogenicity: Isoechoic, 1 point Shape: Olsud-xtyk-vyef, 0 points Margin: Smooth, 0 points Echogenic foci (add points for all that apply): None, 0 points Internal vascularity: absent Interval growth: Significant interval growth (20% increase in at least two nodule dimensions and a minimal increase of 2 mm, or a 50% or greater increase in volume). TI-RADS Category: TR2 ACR Recommendation: TI-RADS 2 Nodule. No follow-up or FNA is advised. IMPRESSION: Thyroid nodule(s) present is/are clinically insignificant. No surveillance is advised. TI-RADS Category: TR3 ACR Recommendation: TI-RADS 3 nodule. No FNA or further imaging is advised. ACR recommendations are strictly based on the size and imaging appearance at the time of the exam and do not consider stability or previous biopsy results. Franchise Specialist: PSCB Transcribe Date/Time: Jan 22 2024 3:09P Dictated by : RONNIE PAN DO This examination was interpreted and the report reviewed and electronically signed by: RONNIE PAN DO on Jan 22 2024 3:20PM EST [id number] Normal [facility] HEMOGLOBIN A1C (POC)on 01-16 HbA1c (Bld) [Mass fraction] 10.5 % Abnormal 4.3 - 5.6 % [facility] CBC W Auto Differential pane l (Bld)on 12-06-2023 Basophils (Bld) [#/Vol] 0.05 10*3/uL <0.11 k/uL [facility] Basophils/100 WBC (Bld) 0.6 % [facility] Differential cell count method Nom (Bld) Auto [facility] Eosinophils (Bld) [#/Vol] 0.12 10*3/uL <0.46 k/uL [facility] Eosinophils/100 WBC (Bld) 1.6 % [facility] Erythrocyte distribution width (RBC) [Ratio] 12.0 % 11.5 - 15.0 % [facility] Hematocrit (Bld) [Volume fraction] 46.1 % 39.0 - 51.0 % [facility] Hemoglobin (Bld) [Mass/Vol] 15.9 g/dL 13.0 - 17.0 g/dL [facility] Immature granulocytes (Bld) [#/Vol] <0.10 k/uL [facility] Immature granulocytes/100 WBC (Bld) 0.3 % [facility] Lymphocytes (Bld) [#/Vol] 3.22 10*3/uL 1.00 - 4.00 k/uL [facility] Lymphocytes/100 WBC (Bld) 41.8 % [facility] MCH (RBC) [Entitic mass] 31.4 pg 26.0 - 34.[address] [facility] MCHC (RBC) [Mass/Vol] 34.5 g/dL 30.5 - 36.0 g/dL [facility] MCV (RBC) [Entitic vol] 91.1 fL 80.0 - 100.[address] [facility] Monocytes (Bld) [#/Vol] 0.47 10*3/uL <0.87 k/uL [facility] Monocytes/100 WBC (Bld) 6.1 % [facility] Neutrophils (Bld) [#/Vol] 3.83 10*3/uL 1.45 - 7.50 k/uL [facility] Neutrophils/100 WBC (Bld) 49.6 % [facility] Nucleated RBC (Bld) [#/Vol] <0.01 k/uL [facility] Nucleated RBC/100 WBC (Bld) [Ratio] 0.0 /[address] [facility] Platelet mean volume (Bld) [Entitic vol] 12.8 fL High 9.0 - 12.[address] [facility] Platelets (Bld) [#/Vol] 281 10*3/uL 150 - 400 k/uL [facility] RBC (Bld) [#/Vol] 5.06 10*6/uL 4.20 - 6.0 0 m/uL [facility] WBC (Bld) [#/Vol] 7.71 10*3/uL 3.70 - 11.00 k/uL [facility] Comprehensive metabolic 2000 panelon 12-06-2023 Albumin [Mass/Vol] 4.9 g/dL 3.9 - 4.9 g/dL [facility] ALP [Catalytic activity/Vol] 129 U/L High 38 - 113 U/L [facility] ALT [Catalytic activity/Vol] 17 U/L 10 - 54 U/L [facility] Anion gap [Moles/Vol] 11 mmol/L 9 - 18 mmol/L [facility] AST [Catalytic activity/Vol] 19 U/L 14 - 40 U/L [facility] Bilirubin [Mass/Vol] 0.2 mg/dL 0.2 - 1 .3 mg/dL [facility] Calcium [Mass/Vol] 10.2 mg/dL 8.5 - 10. 2 mg/dL [facility] Chloride [Moles/Vol] 104 mmol/L 97 - 10 5 mmol/L [facility] CO2 [Moles/Vol] 25 mmol/L 22 - 30 mmol/L [facility] Creatinine [Mass/Vol] 0.79 mg/dL 0.73 - 1.22 mg/dL [facility] Estimated Glomerular Filtration Rate 110 mL/min/1.73m >=60 mL/min/1.[address] [facility] Glucose [Mass/Vol] 178 mg/dL High 74 - 99 mg/dL [facility] Potassium [Moles/Vol] 4.8 mmol/L 3.7 - 5.1 mmol/L [facility] Protein [Mass/Vol] 7.1 g/dL 6.3 - 8.0 g/dL [facility] Sodium [Moles/Vol] 140 mmol/L 136 - 144 mmol/L [facility] Urea nitrogen [Mass/Vol] 12 mg/dL 9 - 24 mg/dL [facility] LIPID PANEL, NONFASTINGon Cholesterol [Mass/Vol] 200 mg/dL High <200 mg/dL [facility] HDL Cholesterol, Nonfasting 29 mg/dL Low >39 mg/dL [facility] LDL Cholesterol, Nonfasting 106 mg/dL High <100 mg/dL [facility] LDL/HDL Ratio, Nonfasting 3.66 mg/dL High <2.54 mg/dL [facility] Non HDL Cholesterol, Nonfasting 171 mg/dL High <130 mg/dL [facility] Total Chol/HDL Ratio, Nonfasting 6.90 mg/dL High <5.10 mg/dL [facility] Triglycerides, Nonfasting 325 mg/dL High <150 mg/dL [facility] VLDL Cholesterol, Nonfasting 65 mg/dL High <30 mg/dL [facility] MAGNESIUM [facility] 12-06-2023 Magnesium [Mass/Vol] 2.3 mg/dL 1.7 - 2 .3 mg/dL [facility] TSH [facility] 12-06-2023 TSH Qn 1.740 m[IU]/L 0.270 - 4.200 mIU/L [facility] Urinalysis complete panel (U )on 12-06-2023 Bacteria LM.HPF (Urine sed) [#/Area] Negative Negative /HPF [facility] Bilirubin Ql (U) Negative Negative [facility] Clarity (Unsp spec) Clear Clear [facility] Color (U) Yellow Yellow [facility] Epithelial cells LM.HPF (Urine sed) [#/Area] None Seen [facility] Glucose Test strip (U) [Mass/Vol] Negative Negative [facility] Hemoglobin Ql (U) Negative Negative [facility] Hyaline casts (Urine sed) [#/Area] 1-3 /LPF Abnormal 0 /LPF [facility] Ketones Ql (U) Negative Negative [facility] Leukocyte esterase Test strip Ql (U) Negative Negative [facility] Nitrite Ql (U) Negative Negative [facility] pH (U) 5.5 [pH] <8.[address] [facility] Protein (U) [Mass/Vol] Negative Negative [facility] RBC LM.HPF (Urine sed) [#/Area] 0-2 /HPF 0-2 /HPF [facility] Specific gravity (U) [Rel density] 1.024 1.005 - 1.[address] [facility] Urobilinogen Ql (U) 0.2 EU/dL 0.2-1.0 EU/dL [facility] WBC LM.HPF (Urine sed) [#/Area] 0-5 /HPF 0-5 /HPF [facility] VITAMIN B12 BLOODon 12-06-19 24 Cobalamin (Vitamin B12) [Mass/Vol] 418 pg/mL 232 - 1,245 pg/mL [facility] XR FOOT RIGHT 3+ VIEWSon XR FOOT RIGHT 3+ VIEWS Interpreted By: Doretha Bueno, STUDY: XR FOOT RIGHT 3+ VIEWS; ; 10/27/2023 9:58 am INDICATION: Signs/Symptoms:medial aspect pain. COMPARISON: None. ACCESSION NUMBER(S): [id number] ORDERING CLINICIAN: STANTON PETERS FINDINGS: AP, oblique and lateral views were obtained. There is no fracture or dislocation. No focal bone destruction is noted. Joint spaces appear intact. IMPRESSION: No acute osseous abnormality MACRO: None Signed by: Doretha Bueno 10/27/2023 10:58 AM Dictation workstation: [id number] [facility] XR Foot - right 3 Viewson No acute osseous abnormality MACRO: None Signed by: Doretha Bueno 10/27/2023 10:58 AM Dictation workstation: [id number] [facility] Interpreted By: Doretha Burrell, STUDY: XR FOOT RIGHT 3+ VIEWS; ; 10/27/2023 9:58 am INDICATION: Signs/Symptoms:medial aspect pain. COMPARISON: None. ACCESSION NUMBER(S): [id number] ORDERING CLINICIAN: STANTON PETERS FINDINGS: AP, oblique and lateral views were obtained. There is no fracture or dislocation. No focal bone destruction is noted. Joint spaces appear intact. [facility] Doretha Bueno MD - 10/27/2023 Interpreted By: Doretha Bueno STUDY: XR FOOT RIGHT 3+ VIEWS; ; 10/27/2023 9:58 am INDICATION: Signs/Symptoms:medial aspect pain. COMPARISON: None. ACCESSION NUMBER(S): [id number] ORDERING CLINICIAN: STANTON PETERS FINDINGS: AP, oblique and lateral views were obtained. There is no fracture or dislocation. No focal bone destruction is noted. Joint spaces appear intact. IMPRESSION: No acute osseous abnormality MACRO: None Signed by: Doretha Bueno 10/27/2023 10:58 AM Dictation workstation: [id number] [facility] Work Phone: Radiology Study observation (narrative) [facility] Work Phone: XR Foot - right 3 ViewsOrder ed By: Doretha Bueno on 10-27-2023 [facility] Work Phone: Surgery Visit Reporton 04-25 Surgery Visit Report [facility] [address] [place], [place] [id number] OFFICE VISIT Date of Service: 04/25/23 MR#: [id number] Acct: [id number] Name: BIANCA DELAROSA Rep #: [id number] : 1975 Provider: Dr. Prince ramos MD Age/Sex: 47/M Location: [facility] Status: Signed Intake Vital Signs 04/14/23 16:13 Height 6 ft 2 in Intake Visit Reasons: ABSCESS 04/14 Chief Complaint: recheck tressa-rectal [employer] Worker Required: No Is patient in pain?: No Allergies citalopram Allergy (Unknown, Verified 04/25/23 13:08) Unknown venlafaxine Allergy (Unknown, Verified 04/25/23 13:08) Unknown metoclopramide [From Reglan] Allergy (Verified 04/25/23 13:08) weirds me out sertraline [From Zoloft] Allergy (Verified 04/25/23 13:08) sexual side effects topiramate [From Topamax] Allergy (Verified 04/25/23 13:08) Unknown Medications esomeprazole magnesium 40 mg capsule,delayed release 40 mg PO QHS gerd 10/10/17 [History Confirmed 04/25/23] fenofibrate 50 mg capsule 54 mg PO DAILY cholesterol 10/10/17 [History Confirmed 04/25/23] multivitamin 1 ea PO DAILY supplement 10/10/17 [History Confirmed 04/25/23] atorvastatin 20 mg tablet 20 mg PO DAILY 03/22/18 [History Confirmed 04/25/23] fluoxetine 40 mg capsule 60 mg PO QDAY 03/22/18 [History Confirmed 04/25/23] metformin 500 mg tablet 1,000 mg PO BID diabetes 03/22/18 [History Confirmed 04/25/23] Fish Oil 1,000 mg Capsule 1,000 mg PO BID 10/20/18 [History Confirmed 04/25/23] doxepin 10 mg capsule 10 mg PO QHS 10/20/18 [History Confirmed 04/25/23] olanzapine 2.5 mg tablet 2.5 mg PO QHS 10/20/18 [History Confirmed 04/25/23] zonisamide 25 mg capsule 25 mg PO DAILY 10/20/18 [History Confirmed 04/25/23] empagliflozin 25 mg tablet 25 mg PO DAILY #30 tabs 10/22/18 [Rx Confirmed 04/25/23] buspirone 15 mg tablet mg 04/14/23 [History Confirmed 04/25/23] duloxetine 60 mg capsule,delayed release mg PO 04/14/23 [History Confirmed 04/25/23] fluticasone propionate 50 mcg/actuation nasal spray,suspension 1 spray intranasal DAILY PRN allergic symptoms 04/14/23 [History Confirmed 04/25/23] insulin lispro protamine-lispro 100 unit/mL (75-25) subcutaneous pen subcut 04/14/23 [History Confirmed 04/25/23] methylphenidate HCl 10 mg biphasic 50-50 capsule,extended release mg PO 04/14/23 [History Confirmed 04/25/23] Subjective Details: Patient presents following incision and drainage of right perirectal abscess on 04/14/2023. Since hospital discharge they have been doing well. They report minimal postoperative pain. They deny fevers or chills at home. They have not completed their antibiotic course. They have no wound concerns. They continue to notice ongoing drainage but states this has been minimal and of a very thin/pale color. They are no longer continuing to pack the wound as he states that his broke one of the cotton tip applicators trying to force packing into the wound at last attempt. They report tolerance of a diet (patient states that his blood sugars have been in the low 200s and overall he is trying to watch his diet better). Concerning their bowel movements, they report that these have normalized. Objective Details: Constitutional: No acute distress, cooperative Buttock: Open I D site that is slowly closing. No tressa-incisional erythema. There is no fluctuance. Coding Level of Care Code Global Post Op Diagnoses Perirectal abscess K61.1 [facility] Medical History (Updated 04/25/23 @ 17:[address] Prince Villanueva MD) Abnormal chest CT Acute respiratory failure Acute respiratory failure with hypoxia Anxiety and depression Chronic headache Community acquired pneumonia Diabetes mellitus, type II GERD (gastroesophageal reflux disease) History of rectal abscess HLD (hyperlipidemia) Multiple thyroid nodules Obesity (BMI 30-39.9) MIKE (obstructive sleep apnea) Pneumonia Restrictive airway disease Shortness of breath Surgical History (Updated 04/25/23 @ 13:09 by Cynthia Daugherty) Hx of appendectomy Hx of drainage of abscess ( 04/2023) Hx of tonsillectomy Family History Father Colon cancer at age 53 Heart disease Myocardial infarction Social History Smoking Status: Never smoker second hand exposure: No alcohol intake: never substance use type: does not use caffeine: Yes what type of physical activity do you participate in: none frequency: does not exercise seatbelt use: always Assessment and Plan (No Qualifiers) Assessment and Plan (1) Perirectal abscess: Status: Acute Comment: 47-year-old male status postoperative I D 04/14/2023. Overall much improved clinically with decreased pain, no further drainage, and no further signs of infection. Operative cultur (more content not included)... Normal [facility] Culture, Anaerobic Any Sourc venancio 04-18-2023 CUAN UNK UNK LEFT PERIRECTAL ABSCESS No anaerobic bacteria isolated. Normal [facility] Comment on above: Performed By: #### M 100.3000, M100.2000, M100.4001 #### [facility] [address] [place], [address] Wound Cultureon 04-16-2023 WC UNK UNK LEFT PERIRECTAL ABSCESS Klebsiella pneumoniae sp pneum Amount Growth 2+ Klebsiella pneumoniae sp pneum: REACTION Ampicillin Islt YASMINE R Ampicillin+Sulbac Islt YASMINE <=2 S ceFAZolin Islt YASMINE <=4 S Cefepime Islt YASMINE <=0.12 S cefTRIAXone Islt YASMINE <=0.25 S Ciprofloxacin Islt YASMINE <=0.25 S Ertapenem Islt YASMINE <=0.12 S B-Lactamase Extended Susc Islt NEG Gentamicin Islt YASMINE <=1 S Imipenem Islt YASMINE <=0.25 S levoFLOXacin Islt YASMINE <=0.12 S Pip+Tazo Islt YASMINE <=4 S Tobramycin Islt YASIMNE <=1 S TMP SMX Islt YASMINE <=20 S Normal [facility] Comment on above: Performed By: #### M 100.3000, M100.2000, M100.4001 #### [facility] [address] [place], [place], [id number] Absolute lymphocyte countOrd ered By: Prince Villanueva on 04-15-2023 Lymphocytes Auto (Unsp spec) [#/Vol] 1.50 10*3/uL 0.83-4.51 [facility] Basophil percentageOrdered B y: Prince Villanueva on 04-15-2023 Basophils/100 WBC (Bld) 0.5 % 0-1 [facility] Eosinophils/100 WBC (Bld) 1.5 % 0-5 [facility] Neutrophils (Bld) [#/Vol] 5.1 10*3/uL 2.0-7.7 [facility] Neutrophils/100 WBC (Bld) 69.4 % 47-70 [facility] WBC (Bld) [#/Vol] 7.3 10*3/uL 4.4-11.0 [facility] Bedside Glucoseon 04-15-2023 FINGERSTICK GLU 353 mg/dL High 74-106 [facility] Comment on above: Result Comment: KAUSHAL GEMENT OF PATIENT CARE PER NURSING PROTOCOL Performed By: #### L 501.080 #### [facility] [address] [place], [place], [id number] (710 FINGERSTICK GLU 332 mg/dL High 74-106 [facility] Comment on above: Result Comment: KAUSHAL GEMENT OF PATIENT CARE PER NURSING PROTOCOL Performed By: #### L 501.080 ####[facility] [address] [place], [address] Blood erythrocytes count (nu mber/volume)Ordered By: Prince Villanueva on 04-15-2023 RBC (Bld) [#/Vol] 4.26 10*6/uL 4.6-6.2 [facility] Blood hemoglobin measurement (mass/volume)Ordered By: Prince Villanueva on 04-15-2023 Hemoglobin (Bld) [Mass/Vol] 13.5 g/dL 13.0-16.5 [facility] Blood lymphocytes/100 leukoc ytesOrdered By: Prince Villanueva on 04-15-2023 Lymphocytes/100 WBC (Bld) 20.5 % 19-41 [facility] Blood monocytes/100 leukocyt esOrdered By: Prince Villanueva on 04-15-2023 Monocytes/100 WBC (Bld) 7.8 % 0-10 [facility] Blood platelet mean volumeOr dered By: Prince Villanueva on 04-15-2023 Platelet mean volume (Bld) [Entitic vol] 13.2 fL 6.2-12.0 [facility] CBC W/Diff, Automatedon 07-0 Absolute Lymph 1.50 X10 3/uL Normal 0.83-4.51 [facility] Comment on above: Performed By: #### L 100.0100 ####[facility] [address] [place], [address] Absolute Neut 5.1 X10 3/uL Normal 2.0-7.7 [facility] Comment on above: Performed By: #### L 100.0100 ####[facility] [address] [place], [address] Basophils/100 WBC (Bld) 0.5 % Normal 0-1 [facility] Comment on above: Performed By: #### L 100.0100 ####[facility] [address] [place], [address] Eosinophils/100 WBC (Bld) 1.5 % Normal 0-5 [facility] Comment on above: Performed By: #### L 100.0100 ####[facility] [address] [place], [address] Erythrocyte distribution width (RBC) [Ratio] 11.8 % Normal 11.6-14.6 [facility] Comment on above: Performed By: #### L 100.0100 ####[facility] [address] [place], [address] Hematocrit (Bld) [Volume fraction] 39.4 % Low 40-54 [facility] Comment on above: Performed By: #### L 100.0100 ####[facility] [address] [place], [address] Hemoglobin (Bld) [Mass/Vol] 13.5 g/dL Normal 13.0-16.5 [facility] Comment on above: Performed By: #### L 100.0100 ####[facility] [address] [place], [address] IG% 0.300 Normal 0.0-0.9 [facility] Comment on above: Result Comment: IG% - Immature Granulocytes (promyelocytes, myelocytes and metamyelocytes) > 1% indicates that a LEFT SHIFT is Present. Performed By: #### L 100.0100 ####[facility] [address] [place], [address] Lymphocytes/100 WBC (Bld) 20.5 % Normal 19-41 [facility] Comment on above: Performed By: #### L 100.0100 ####[facility] [address] [place], [address] MCH (RBC) [Entitic mass] 31.7 pg Normal 27.0-32.0 [facility] Comment on above: Performed By: #### L 100.0100 ####[facility] [address] [place], [address] MCHC (RBC) [Mass/Vol] 34.3 g/dL Normal 32-36 [facility] Comment on above: Performed By: #### L 100.0100 ####[facility] [address] [place], [address] MCV (RBC) [Entitic vol] 92.5 fL Normal 80-94 [facility] Comment on above: Performed By: #### L 100.0100 ####[facility] [address] [place], [address] Monocytes/100 WBC (Bld) 7.8 % Normal 0-10 [facility] Comment on above: Performed By: #### L 100.0100 ####[facility] [address] [place], [address] Neutrophils/100 WBC (Bld) 69.4 % Normal 47-70 [facility] Comment on above: Performed By: #### L 100.0100 ####[facility] [address] [place], [address] Nucleated RBC (Bld) [#/Vol] 0 10*3/uL Normal 0-5 [facility] Comment on above: Performed By: #### L 100.0100 ####[facility] [address] [place], [address] Platelet mean volume (Bld) [Entitic vol] 13.2 fL High 6.2-12.0 [facility] Comment on above: Performed By: #### L 100.0100 ####[facility] [address] [place], [address] Platelets (Bld) [#/Vol] 172 10*3/uL Normal 150-450 [facility] Comment on above: Performed By: #### L 100.0100 ####[facility] [address] [place], [address] RBC (Bld) [#/Vol] 4.26 10*6/uL Low 4.6-6.2 [facility] Comment on above: Performed By: #### L 100.0100 ####[facility] [address] [place], [address] RDW SD 39.8 fl Normal 35.1-43.9 [facility] Comment on above: Performed By: #### L 100.0100 ####[facility] [address] [place], [address] WBC (Bld) [#/Vol] 7.3 10*3/uL Normal 4.4-11.0 [facility] Comment on above: Performed By: #### L 100.0100 ####[facility] [address] [place], [address] Determination of erythrocyte mean corpuscular volume (MCV)Ordered By: Prince Villanueva on 04-15-2023 MCV (RBC) [Entitic vol] 92.5 fL 80-94 [facility] Discharge Instructionon Discharge Instruction [facility] Medical Records Department [address] [place] [address] Instructions for Home/Discharge Instructions 04/15/23 1055 MR#: [id number] Acct: [id number] Name: BIANCA DELAROSA Rep #: [id number] : 1975 47 From: Prince Villanueva MD PCP: Dr. Humberto Jackson MD Status:ADM KEYANA Discharge Instructions Diet Discharge Diet: Carb Control Diet Activity Discharge Activity: May Shower Dressing / Incision Call your doctor if your incision/area has: Continuous Slow Oozing, Sudden Increased Bleeding, Increased Pain/ Swelling, Increased Redness and Foul Smelling Discharge Call your doctor if you observe: Fever of 101 or Higher and Change in Color Cleanse incision/area with: Soap Water Additional Dressing/Incision Instructions:: Change packing twice daily after showering and expelling all water Follow Up Care Please Follow Up With: Prince Villanueva MD When: 7 to 10 days Test Results: Test results from this visit will be discussed in further detail at your follow-up appointment, if applicable. Discharge Plan Admission Admit Date/Time: 04/14/23 20:30 Primary Reason for Your Visit: Incision and drainage of perirectal abscess Attending Provider: Prince Villanueva Primary Care Provider: Humberto Jackson Discharge Orders/Prescriptions Prescriptions: New amoxicillin-pot clavulanate 500-125 mg Tablet 1 tab PO Q8 7 Days Qty: 21 0RF oxycodone 5 mg Tablet 5 mg PO Q6H PRN PRN (Reason: Pain Score 6-10) 3 Days Qty: 10 0RF Continued atorvastatin 20 mg tablet 20 mg PO DAILY fluoxetine 40 mg capsule 60 mg PO QDAY multivitamin 1 EACH tablet 1 ea PO DAILY esomeprazole magnesium 40 MG capsule 40 mg PO QHS fenofibrate 50 MG capsule 54 mg PO DAILY metformin 500 mg tablet 1,000 mg PO BID doxepin 10 MG capsule 10 mg PO QHS olanzapine 2.5 MG tablet 2.5 mg PO QHS zonisamide 25 MG capsule 25 mg PO DAILY Fish Oil 1,000 mg Capsule 1,000 mg PO BID empagliflozin 25 MG tablet 25 mg PO DAILY Qty: 30 0RF buspirone 15 mg tablet Patient Comments: TAKE 1 TABLET BY MOUTH TWICE A DAY insulin lispro protamin-lispro 100 unit/mL (75-25) insulin pen SUBCUT methylphenidate HCl 10 mg capsule,ER biphasic 50-50 PO Patient Comments: TAKE 1 CAPSULE BY MOUTH EVERY DAY duloxetine 60 mg capsule,delayed release(DR/EC) PO Patient Comments: TAKE 1 CAPSULE BY MOUTH ONCE DAILY fluticasone propionate 50 mcg/actuation spray,suspension 1 spray intranasal DAILY PRN (Reason: allergic symptoms) Rx Instructions: administer into each nostril Referrals / Follow Up: Humberto Jackson MD [Primary Care Provider] - Disposition Disposition (needs filled in before D/C Order can be placed): Home, Self Care 04/15/23 1101 Prince Villanueva MD CC: Dr. Humberto Jackson MD Signed Normal [facility] Glucose Glucometer (BldC) [M ass/Vol]Ordered By: Prince Villanueva on 04-15-2023 Glucose [Mass/Vol] 353 mg/dL 74-106 [facility] Comment on above: MANAGEMENT OF PATIEN T CARE PER NURSING PROTOCOL Gram Stainon 04-15-2023 GS UNK UNK LEFT PERIRECTAL ABSCESS Gram Stain 3+ Red Blood Cells Rare White Blood Cells 1+ Gram negative rods Normal [facility] Comment on above: Performed By: #### M 100.3000, M100.2000, M100.4001 #### [facility] [address] [place], [address] Hematocrit Auto (Bld) [Volum e fraction]Ordered By: Prince Villanueva on 04-15-2023 Hematocrit (Bld) [Volume fraction] 39.4 % 40-54 [facility] - Hematology and Cell countsOrdered By: Prince Villanueva on 04-15-2023 Erythrocyte distribution width (RBC) [Entitic vol] 39.8 fL 35.1-43.9 [facility] Erythrocyte distribution width (RBC) [Ratio] 11.8 % 11.6-14.6 [facility] Immature granulocytes/100 WBC (Bld) 0.300 % 0.0-0.9 [facility] Comment on above: IG% - Immature Granu locytes (promyelocytes, myelocytes and metamyelocytes) > 1% indicates that a LEFT SHIFT is Present. MCH (RBC) [Entitic mass] 31.7 pg 27.0-32.0 [facility] Nucleated RBC/100 WBC (Bld) [Ratio] 0 % 0-5 [facility] MCHC Auto (RBC) [Mass/Vol]Or dered By: Prince Villanueva on 04-15-2023 MCHC (RBC) [Mass/Vol] 34.3 g/dL 32-36 [facility] Platelets bldOrdered By: Yasmine Villanueva on 04-15-2023 Platelets (Bld) [#/Vol] 172 10*3/uL 150-450 [facility] Absolute lymphocyte countOrd ered By: Jil Scott on 04-14-2023 Lymphocytes Auto (Unsp spec) [#/Vol] 1.89 10*3/uL 0.83-4.51 [facility] Basic Metabolic Profile (BMP )on 04-14-2023 BUN/CRE 11.3 RATIO Normal 10-20 [facility] Comment on above: Performed By: #### L 100.0100, L500.2500 #### [facility] [address] [place], [address] CA,Total 8.9 mg/dL Normal 8.5-10.1 [facility] Comment on above: Performed By: #### L 100.0100, L500.2500 #### [facility] [address] [place], [address] Chloride [Moles/Vol] 102 mmol/L Normal 98-107 [facility] Comment on above: Performed By: #### L 100.0100, L500.2500 #### [facility] [address] [place], [address] CO2 [Moles/Vol] 23.0 mmol/L Normal 21.0-32.0 [facility] Comment on above: Performed By: #### L 100.0100, L500.2500 #### [facility] [address] [place], [address] Creatinine [Mass/Vol] 0.79 mg/dL Normal 0.70-1.30 [facility] Comment on above: Result Comment: The validity of the calculated GFR GFRAA in patients over 70 years has not been determined. Clinical correlation is essential. Performed By: #### L 100.0100, L500.2500 #### [facility] [address] [place], [address] ECRCL 132.95 ml/min Normal [facility] Comment on above: Performed By: #### L 100.0100, L500.2500 #### [facility] [address] [place], [address] EST GFR - AA 134 mL/min Normal >60 [facility] Comment on above: Result Comment: Afri can Singaporean GFR Calc Performed By: #### L 100.0100, L500.2500 #### [facility] [address] [place], [address] GAP 10 Normal 5-15 [facility] Comment on above: Performed By: #### L 100.0100, L500.2500 #### [facility] [address] [place], [address] GFR/1.73 sq M.predicted among non-blacks MDRD (S/P/Bld) [Vol rate/Area] 111 mL/min/{1.73_m2} Normal >60 [facility] Comment on above: Result Comment: Non- GFR Calc Performed By: #### L 100.0100, L500.2500 #### [facility] [address] [place], [address] Glucose [Mass/Vol] 300 mg/dL High 74-106 [facility] Comment on above: Result Comment: Gluc ose result greater than or equal to 200 mg/dL suggests DIABETES MELLITUS per A.D.A. criteria. Performed By: #### L 100.0100, L500.2500 #### [facility] [address] [place], [address] Potassium [Moles/Vol] 3.7 mmol/L Normal 3.5-5.1 [facility] Comment on above: Performed By: #### L 100.0100, L500.2500 #### [facility] [address] [place], [address] Sodium [Moles/Vol] 135 mmol/L Low 136-145 [facility] Comment on above: Performed By: #### L 100.0100, L500.2500 #### [facility] [address] [place], [address] Urea nitrogen [Mass/Vol] 9 mg/dL Normal 7-18 [facility] Comment on above: Performed By: #### L 100.0100, L500.2500 #### [facility] [address] [place], [address] Basophil percentageOrdered B y: Jil Scott on 04-14-2023 Basophils/100 WBC (Bld) 0.5 % 0-1 [facility] Chloride [Moles/Vol] 102 mmol/L 98-107 [facility] Eosinophils/100 WBC (Bld) 0.6 % 0-5 [facility] Glucose [Mass/Vol] 300 mg/dL 74-106 [facility] Comment on above: Glucose result great er than or equal to 200 mg/dLsuggests DIABETES MELLITUS per A.D.A. criteria. Neutrophils (Bld) [#/Vol] 7.2 10*3/uL 2.0-7.7 [facility] Neutrophils/100 WBC (Bld) 73.5 % 47-70 [facility] Potassium [Moles/Vol] 3.7 mmol/L 3.5-5.1 [facility] Sodium [Moles/Vol] 135 mmol/L 136-145 [facility] WBC (Bld) [#/Vol] 9.8 10*3/uL 4.4-11.0 [facility] Bedside Glucoseon 04-14-2023 FINGERSTICK GLU 404 mg/dL High 74-106 [facility] Comment on above: Result Comment: KAUSHAL GEMENT OF PATIENT CARE PER NURSING PROTOCOL Performed By: #### L 501.080 #### [facility] Laboratory [address] [place], [place], [address] FINGERSTICK GLU 252 mg/dL High [address] [place] [address] Comment on above: Result Comment: KAUSHAL GEMENT OF PATIENT CARE PER NURSING PROTOCOL Performed By: #### L 501.080 ####[facility] [address] [place], [address] Blood erythrocytes count (nu mber/volume)Ordered By: Jil Scott on 04-14-2023 RBC (Bld) [#/Vol] 4.74 10*6/uL 4.6-6.2 [facility] Blood hemoglobin measurement (mass/volume)Ordered By: Jil Scott on 04-14-2023 Hemoglobin (Bld) [Mass/Vol] 15.2 g/dL 13.0-16.5 [facility] Blood lymphocytes/100 leukoc ytesOrdered By: Jil Scott on 04-14-2023 Lymphocytes/100 WBC (Bld) 19.3 % 19-41 [facility] Blood monocytes/100 leukocyt esOrdered By: Jil Scott on 04-14-2023 Monocytes/100 WBC (Bld) 5.8 % 0-10 [facility] Blood platelet mean volumeOr dered By: Jil Scott on 04-14-2023 Platelet mean volume (Bld) [Entitic vol] 12.4 fL 6.2-12.0 [facility] CBC W/Diff, Automatedon Absolute Lymph 1.89 X10 3/uL Normal 0.83-4.51 [facility] Comment on above: Performed By: #### L 100.0100, L500.2500 #### [facility] [address] [place], [address] Absolute Neut 7.2 X10 3/uL Normal 2.0-7.7 [facility] Comment on above: Performed By: #### L 100.0100, L500.2500 #### [facility] [address] [place], [address] Basophils/100 WBC (Bld) 0.5 % Normal 0-1 [facility] Comment on above: Performed By: #### L 100.0100, L500.2500 #### [facility] [address] [place], [address] Eosinophils/100 WBC (Bld) 0.6 % Normal 0-5 [facility] Comment on above: Performed By: #### L 100.0100, L500.2500 #### [facility] [address] [place], [address] Erythrocyte distribution width (RBC) [Ratio] 11.6 % Normal 11.6-14.6 [facility] Comment on above: Performed By: #### L 100.0100, L500.2500 #### [facility] [address] [place], [address] Hematocrit (Bld) [Volume fraction] 42.2 % Normal 40-54 [facility] Comment on above: Performed By: #### L 100.0100, L500.2500 #### [facility] [address] [place], [address] Hemoglobin (Bld) [Mass/Vol] 15.2 g/dL Normal 13.0-16.5 [facility] Comment on above: Performed By: #### L 100.0100, L500.2500 #### [facility] [address] [place], [address] IG% 0.300 Normal 0.0-0.9 [facility] Comment on above: Result Comment: IG% - Immature Granulocytes (promyelocytes, myelocytes and metamyelocytes) > 1% indicates that a LEFT SHIFT is Present. Performed By: #### L 100.0100, L500.2500 #### [facility] [address] [place], [address] Lymphocytes/100 WBC (Bld) 19.3 % Normal 19-41 [facility] Comment on above: Performed By: #### L 100.0100, L500.2500 #### [facility] [address] [place], [address] MCH (RBC) [Entitic mass] 32.1 pg High 27.0-32.0 [facility] Comment on above: Performed By: #### L 100.0100, L500.2500 #### [facility] [address] [place], [address] MCHC (RBC) [Mass/Vol] 36.0 g/dL Normal 32-36 [facility] Comment on above: Performed By: #### L 100.0100, L500.2500 #### [facility] [address] [place], [address] MCV (RBC) [Entitic vol] 89.0 fL Normal 80-94 [facility] Comment on above: Performed By: #### L 100.0100, L500.2500 #### [facility] [address] [place], [address] Monocytes/100 WBC (Bld) 5.8 % Normal 0-10 [facility] Comment on above: Performed By: #### L 100.0100, L500.2500 #### [facility] [address] [place], [address] Neutrophils/100 WBC (Bld) 73.5 % High 47-70 [facility] Comment on above: Performed By: #### L 100.0100, L500.2500 #### [facility] [address] [place], [address] Nucleated RBC (Bld) [#/Vol] 0 10*3/uL Normal 0-5 [facility] Comment on above: Performed By: #### L 100.0100, L500.2500 #### [facility] [address] [place], [address] Platelet mean volume (Bld) [Entitic vol] 12.4 fL High 6.2-12.0 [facility] Comment on above: Performed By: #### L 100.0100, L500.2500 #### [facility] [address] [place], [address] Platelets (Bld) [#/Vol] 203 10*3/uL Normal 150-450 [facility] Comment on above: Performed By: #### L 100.0100, L500.2500 #### [facility] [address] [place], [address] RBC (Bld) [#/Vol] 4.74 10*6/uL Normal 4.6-6.2 [facility] Comment on above: Performed By: #### L 100.0100, L500.2500 #### [facility] [address] [place], [address] RDW SD 37.4 fl Normal 35.1-43.9 [facility] Comment on above: Performed By: #### L 100.0100, L500.2500 #### [facility] [address] [place], [address] WBC (Bld) [#/Vol] 9.8 10*3/uL Normal 4.4-11.0 [facility] Comment on above: Performed By: #### L 100.0100, L500.2500 #### [facility] [address] [place], [address] Determination of erythrocyte mean corpuscular volume (MCV)Ordered By: Jil Scott on 04-14-2023 MCV (RBC) [Entitic vol] 89.0 fL 80-94 [facility] Emergency Department Summary on 04-14-2023 Emergency Department Summary [facility] Medical Records Department [address] [facility] [place] [address] Emergency Department Summary 04/14/23 MR#: [id number] Acct: [id number] Name: BIANCA DELAROSA Rep #: [id number] : 1975 47 From: Jil CLAY PCP: Dr. Humberto Jackson MD Status:[facility] Location: [address] History of Present Illness Chief Complaint: Abscess Narrative Narrative: 47-year-old male with PMH of DM2 presents with a buttock abscess x4 days. He had an abscess in the same area over 6 months ago that burst spontaneously. Today he was evaluated at his PCPs office and they sent him to the ED. He denies fever or chills. He is on insulin and does not know what his blood sugars have been running this week because his arm sensor fell off. [facility] Medical History (Updated 04/14/23 @ 17:[address] Prince Villanueva MD) Abnormal chest CT Acute respiratory failure Acute respiratory failure with hypoxia Anxiety and depression Chronic headache Community acquired pneumonia Diabetes mellitus, type II GERD (gastroesophageal reflux disease) HLD (hyperlipidemia) Multiple thyroid nodules Obesity (BMI 30-39.9) MIKE (obstructive sleep apnea) Pneumonia Restrictive airway disease Shortness of breath Home Medications esomeprazole magnesium 40 mg capsule,delayed release 40 mg PO QHS gerd 10/10/17 [History Last Taken 10/19/18] fenofibrate 50 mg capsule 54 mg PO DAILY cholesterol 10/10/17 [History Last Taken 10/20/18] multivitamin 1 ea PO DAILY supplement 10/10/17 [History Last Taken 10/20/18] atorvastatin 20 mg tablet 20 mg PO DAILY 03/22/18 [History Last Taken 10/20/18] fluoxetine 40 mg capsule 60 mg PO QDAY 03/22/18 [History Last Taken 10/20/18] metformin 500 mg tablet 1,000 mg PO BID diabetes 03/22/18 [History Last Taken 10/20/18] Fish Oil 1,000 mg Capsule 1,000 mg PO BID 10/20/18 [History Last Taken 10/20/18] Magnesium 250 mg PO BID 10/20/18 [History Last Taken 10/20/18] doxepin 10 mg capsule 10 mg PO QHS 10/20/18 [History Last Taken 10/19/18] olanzapine 2.5 mg tablet 2.5 mg PO QHS 10/20/18 [History Last Taken 10/19/18] riboflavin (vitamin B2) 100 mg tablet 100 mg PO BID 10/20/18 [History Last Taken 10/20/18] zonisamide 25 mg capsule 25 mg PO DAILY 10/20/18 [History Last Taken 10/20/18] empagliflozin 25 mg tablet 25 mg PO DAILY #30 tabs 10/22/18 [Rx Last Taken Unknown] Allergy/AdvReac Type Severity Reaction Status Date / Time citalopram Allergy Unknown Unknown Verified 03/06/19 14:55 venlafaxine Allergy Unknown Unknown Verified 03/06/19 14:55 metoclopramide [From Reglan] Allergy weirds me Verified 03/06/19 14:55 out sertraline [From Zoloft] Allergy sexual Verified 03/06/19 14:55 side effects topiramate [From Topamax] Allergy Unknown Verified 03/06/19 14:55 Family History Father Colon cancer at age 53 Heart disease Myocardial infarction Surgical History Hx of appendectomy Hx of tonsillectomy Social History Smoking Status: Never smoker second hand exposure: No alcohol intake: never substance use type: does not use caffeine: Yes what type of physical activity do you participate in: none frequency: does not exercise seatbelt use: always ROS ROS ED ROS Narrative Constitutional: Negative for fever, chills, malaise. GI: Negative for abdominal pain, nausea, vomiting. Skin: Negative for wound. EXAM Physical Exam Narrative Exam Narrative: CONST: Patient sitting in no acute distress. EYES: Normal inspection. NECK: Normal inspection. RESP: No respiratory distress, CTAB. CVS: Rapid but regular rhythm, no murmur, no gallop. Rectal: Left perirectal area has tenderness and erythema extending toward the rectum. No induration, no lymphangitis. SKIN: Color normal, no rash, warm, dry, intact. EXTREMITIES: Normal appearance, no pedal edema. NEURO: Oriented x4. PSYCH: Normal affect. Const Vital Signs: 04/14/23 14:01 04/14/23 16:13 04/14/23 17:03 Temperature 97.1 F L 99.7 F H 99.8 F H Temperature Source Temporal Temporal Temporal Pulse Rate 123 H 99 Respiratory Rate 18 16 16 Blood Pressure 144/108 H 136/86 H 117/81 H Blood Pressure Mean 120 102 93 Blood Pressure Source Monitor Blood Pressure Position Supine Blood Pressure Location Right Arm Pulse Ox 95 91 91 Oxygen Delivery Method Room Air Room Air Room Air Physical Exam Const Vital Signs: 04/14/23 14:01 04/14/23 16:13 04/14/23 17:03 Temperature 97.1 F L 99.7 F H 99.8 F H Temperature Source Temporal Temporal Temporal Pulse Rate 123 H 99 Respiratory Rate 18 16 16 Blood Pressure 144/108 H 136/86 H 117/81 H Blood Pressure M (more content not included)... Normal [facility] Gram stain for investigation of transfusion reactionOrdered By: Prince Villanueva on 04-14-2023 Microscopic observation Gram stain Nom (Unsp spec) [facility] Hematocrit Auto (Bld) [Volum e fraction]Ordered By: Jil Scott on 04-14-2023 Hematocrit (Bld) [Volume fraction] 42.2 % 40-54 [facility] Laboratory - Chemistry and C hemistry - challengeOrdered By: Jil Scott on 04-14-2023 CO2 [Moles/Vol] 23.0 mmol/L 21.0-32.0 [facility] Urea nitrogen/Creatinine [Mass ratio] 11.3 mg/mg 10-20 [facility] Laboratory - Hematology and Cell countsOrdered By: Jil Scott on 04-14-2023 Erythrocyte distribution width (RBC) [Entitic vol] 37.4 fL 35.1-43.9 [facility] Erythrocyte distribution width (RBC) [Ratio] 11.6 % 11.6-14.6 [facility] Immature granulocytes/100 WBC (Bld) 0.300 % 0.0-0.9 [facility] Comment on above: IG% - Immature Granu locytes (promyelocytes, myelocytes and metamyelocytes) > 1% indicates that a LEFT SHIFT is Present. MCH (RBC) [Entitic mass] 32.1 pg 27.0-32.0 [facility] Nucleated RBC/100 WBC (Bld) [Ratio] 0 % 0-5 [facility] MCHC Auto (RBC) [Mass/Vol]Or dered By: Jil Scott on 04-14-2023 MCHC (RBC) [Mass/Vol] 36.0 g/dL 32-36 [facility] No Panel InformationOrdered By: Jil Scott on 04-14-2023 Estimated Creatinine Clearance Calc 132.95 ml/min [facility] Estimated GFR (MDRD) Amer 134 mL/min >60 [facility] Comment on above: GFR Calc Estimated GFR (MDRD) Non-Af Amer 111 mL/min >60 [facility] Comment on above: Non- GFR Calc Operative Reporton 3 Operative Report [facility] Medical Records Department [address] [place] [address] Operative Report 04/14/232038 MR#: [id number] Acct: [id number] Name: BIANCA DELAROSA Rep #: [id number] : 1975 47 From: Prince Villanueva MD PCP: Dr. Humberto Jackson MD Status:[facility] Location: [place] [address] Report of Operation Date of Procedure: 04/14/23 Pre-Operative Diagnosis: Perirectal abscess (left) Post-Operative Diagnosis: Same Surgery/Procedure Performed:: Anal rectal exam under anesthesia with incision and drainage of perirectal abscess Description of Surgical Findings:: ??? Indurated and fluctuant area in left perirectal space ??? Tracking of abscess cavity towards anus and rectum without demonstrable internal opening to confirm fistula in ano Surgeon: Prince Villanueva Type of Anesthesia: MAC/Supplemental/Local Anesthesiologist: Gwen Smith Specimen's removed: Perirectal abscess cavity cultures Drains: Iodoform gauze (quarter inch) Estimated Blood Loss (mL): 100 Description of Procedure: After appropriate identification in the preoperative holding area the patient was brought to the operating room where he was positioned supine. He was administered sedation and then he was repositioned in lithotomy with leg holders. His perineal area and perianal area were prepped and draped. A formal timeout was conducted to confirm the patient and the procedure to be performed. The procedure was begun with creation of a perineal block of the pudendal nerve using 20 mL of 0.25% bupivacaine. Then, an 15 blade scalpel was used to make a stab incision in the area of greatest induration and fluctuance. This resulted in return of simple blood but a hemostat was inserted and used to bluntly prove the cavity. This blunt probing resulted in return of copious purulence. Additional blunt probing was used to try to disrupt any loculations and the cavity was then irrigated with sterile saline. Cultures were obtained of the cavity with swabs. I opened the cavity slightly more longitudinally in order to facilitate digital exam and used a small finger to disrupt any additional loculations I palpated. The final dimensions of this external opening were 1.5 cm x 1 cm. Next I attempted to identify an internal anal opening. This began with insertion of a lubricated Hill-Barker retractor to the anal canal. This retractor was oriented in such a way as to expose the inner aspect of the anal canal subjacent the patient's abscess. I then used a series of lacrimal probes to probe the wound and assess whether there was tracking towards the canal. While I found a general trajectory towards the anal canal, I was unable to visualize an internal opening and the large size of the cavity seemed to compromise the probe's ability to more accurately discriminate where a tract may exist. Therefore this attempt was abandoned and I further irrigated the cavity with additional warm sterile saline. To facilitate hemostasis, the cavity was packed with quarter inch iodoform gauze. Lastly a Kerlix gauze was layered over the site along with an abdominal pad dressing to collect post procedure drainage. Case was then concluded and the patient was awakened and transferred to PACU for ongoing recovery. Complications None Admit VTE Documentation VTE Mechan Device Prophylaxis: SCD's Procedures Digestive 40xxx-49xxx: 53783 Incision of rectal abscess 04/15/23 1216 Cosigner Signature (if applicable): CC: Dr. Humberto Jackson MD; Dr. Prince Villanueva MD Signed Normal [facility] Pelvis WITH IV Contraston Pelvis WITH IV Contrast [facility] Imaging Services [address] [place] [address] Pelvis WITH IV Contrast MR#: [id number] Acct: [id number] Name: BIANCA DELAROSA Rep #: [id number] : 1975 M 47 From: Jaime Blanton PCP: Dr. Humberto Jackson MD Status: [facility] Study: Pelvis WITH IV Contrast Date of Exam: 04/14/23 Exam# [id number] Ordering Dr: Jil Scott STUDY: CT Pelvis W/ Contrast Injection 04/14/2023 5:07 PM REASON FOR EXAM: Male, 47 years old. Abdominal pain perirectal abscess Individualized dose optimization techniques were used for this CT. COMPARISON: None. TECHNIQUE: CT Pelvis W/ Contrast Injection IV 100mL Isovue-370 FINDINGS: Normal visualized stomach. Normal small intestine. There are multiple colonic diverticula consistent with diverticulosis. There are surgical clips in the region of the appendix consistent with a prior appendectomy. There are calcifications of the abdominal aorta. This is consistent for atherosclerotic disease. There is NO abdominal aortic aneurysm. Vascular workup can be obtained based on clinical correlation. Normal inferior vena cava. Subcentimeter mesenteric lymph nodes. Normal urinary bladder. Left tressa anal abscess is 32 x 22 x 38 mm in size. Se 2 IM: 82 and Se602 IM: 107. There is an umbilical hernia containing fat. Normal osseous structures. There is bilateral neural foraminal stenosis at L4-5 and L5-S1. CT/Pelvis WITH IV Contrast IMPRESSION: (NOT LISTED IN ORDER OF SIGNIFICANCE) Left tressa anal abscess is 32 x 22 x 38 mm in size. Se 2 IM: 82 and Se602 IM: 107. Other findings as above. Electronically Signed: Jaime Amaya MD at 17:11 EDT , CC: Dr. Humberto Jackosn MD; DANNA Welch Franchise Specialist: Signed Normal [facility] Platelets bldOrdered By: Arielle Scott on 04-14-2023 Platelets (Bld) [#/Vol] 203 10*3/uL 150-450 [facility] Serum or plasma calcium festus urement (mass/volume)Ordered By: Jil Scott on 04-14-2023 Calcium [Mass/Vol] 8.9 mg/dL 8.5-10.1 [facility] Serum or plasma creatinine m easurement (mass/volume)Ordered By: Jil Scott on 04-14-2023 Creatinine [Mass/Vol] 0.79 mg/dL 0.70-1.30 [facility] Comment on above: The validity of the calculated GFR & GFRAA in patients over 70 years has not been determined. Clinical correlation is essential. Serum or plasma urea nitroge n measurement (mass/volume)Ordered By: Jil Scott on 04-14-2023 Urea nitrogen [Mass/Vol] 9 mg/dL 7-18 [facility] Thin prep Papanicolaou smear with manual screeningOrdered By: Jil Scott on 04-14-2023 Thin prep Papanicolaou smear with manual screening 10 5-15 [facility] HEMOGLOBIN A1C (POC)on 01-27 HbA1c (Bld) [Mass fraction] 11.0 % Abnormal 4.2 - 5.6 % [facility] TOX SCREEN ROUT URon 023 Amphetamines Confirm (U) [Mass/Vol] Negative Negative [facility] Barbiturates Urine Negative Negative [facility] Benzodiazepines Urine Negative Negative [facility] Cannabinoids, Urine Negative Negative [facility] Cocaine Ql (U) Negative Negative [facility] Ethanol (U) [Mass/Vol] <11 mg/dL [facility] Opiates Screen Ql (U) Negative Negative [facility] oxyCODONE cutoff Screen (U) [Mass/Vol] Negative Negative [facility] Phencyclidine Ql (U) Negative [facility] COLONOSCOPY SCREENINGon 08-[address] [facility] GLUCOSE, BLOOD (POC)on 08-30 Glucose [Mass/Vol] 240 mg/dL Abnormal 74 - 99 mg/dL [facility] HEPB S AB IMMUNITYon 022 HBV surface Ab Qn (S) 9.36 mIU/mL Low >=12.0 0 mIU/mL [facility] CBC W Auto Differential pane l (Bld)on 06-04-2022 Abs Immature Gran 0.03 k/uL <0.10 k/uL [facility] Basophils (Bld) [#/Vol] 0.06 10*3/uL <0.11 k/uL [facility] Basophils/100 WBC (Bld) 0.8 % [facility] Differential cell count method Nom (Bld) Auto [facility] Eosinophils (Bld) [#/Vol] 0.11 10*3/uL <0.46 k/uL [facility] Eosinophils/100 WBC (Bld) 1.4 % [facility] Erythrocyte distribution width (RBC) [Ratio] 11.9 % 11.5 - 15.0 % [facility] Hematocrit (Bld) [Volume fraction] 46.7 % 39.0 - 51.0 % [facility] Hemoglobin (Bld) [Mass/Vol] 16.0 g/dL 13.0 - 17.0 g/dL [facility] Immature Gran % 0.4 % [facility] Lymphocytes (Bld) [#/Vol] 3.03 10*3/uL 1.00 - 4.00 k/uL [facility] Lymphocytes/100 WBC (Bld) 39.7 % [facility] MCH (RBC) [Entitic mass] 31.3 pg 26.0 - 34.[address] [facility] MCHC (RBC) [Mass/Vol] 34.3 g/dL 30.5 - 36.0 g/dL [facility] MCV (RBC) [Entitic vol] 91.2 fL 80.0 - 100.[address] [facility] Monocytes (Bld) [#/Vol] 0.48 10*3/uL <0.87 k/uL [facility] Monocytes/100 WBC (Bld) 6.3 % [facility] Neutrophils (Bld) [#/Vol] 3.93 10*3/uL 1.45 - 7.50 k/uL [facility] Neutrophils/100 WBC (Bld) 51.4 % [facility] Nucleated RBC (Bld) [#/Vol] <0.01 k/uL [facility] Nucleated RBC/100 WBC (Bld) [Ratio] 0.0 /[address] [facility] Platelet mean volume (Bld) [Entitic vol] 13.2 fL High 9.0 - 12.[address] [facility] Platelets (Bld) [#/Vol] 241 10*3/uL 150 - 400 k/uL [facility] [facility] RBC (Bld) [#/Vol] 5.12 10*6/uL 4.20 - 6.0 0 m/uL [facility] WBC (Bld) [#/Vol] 7.64 10*3/uL 3.70 - 11.00 k/uL [facility] MAGNESIUM BLDon 06-04-2022 Magnesium [Mass/Vol] 2.0 mg/dL 1.7 - 2 .3 mg/dL [facility] Urinalysis complete panel (U )on 06-04-2022 Bilirubin Ql (U) Negative Negative [facility] Clarity (Unsp spec) Turbid Abnormal Clear [facility] Color (U) Yellow Yellow [facility] Glucose Test strip (U) [Mass/Vol] 2+ Abnormal Negative [facility] Hemoglobin Ql (U) Negative Negative [facility] Ketones Ql (U) Negative Negative [facility] Leukocyte esterase Test strip Ql (U) Negative Negative [facility] Nitrite Ql (U) Negative Negative [facility] pH (U) 5.0 [pH] 5.0 - 8.[address] [facility] Protein (U) [Mass/Vol] 1+ Abnormal Negative [facility] RBC LM.HPF (Urine sed) [#/Area] 0-3 /HPF 0-3 /HPF [facility] Specific gravity (U) [Rel density] 1.029 1.005 - 1.[address] [facility] Urobilinogen Ql (U) Negative Negative [facility] WBC LM.HPF (Urine sed) [#/Area] 0-5 /HPF 0-5 /HPF [facility] VITAMIN B12 BLOODon 06-04-20 Cobalamin (Vitamin B12) [Mass/Vol] 418 pg/mL 232 - 1,245 pg/mL [facility] HEMOGLOBIN A1C (POC)on 03-04 HbA1c (Bld) [Mass fraction] 10.5 % Abnormal 4.2 - 5.6 % [facility] XR Chest PA and Lateralon IMPRESSION: No acute radiographic abnormality. Franchise Specialist: GORGE Transcribe Date/Time: Oct 15 2021 8:39A Dictated by : DAT FERNANDES MD This examination was interpreted and the report reviewed and electronically signed by: DAT FERNANDES MD on Oct 15 2021 8:39AM [facility] DIVISION OF RADIOLOGY * * *Final Report* * * DATE OF EXAM: Oct 15 2021 8:38AM WOX 5291 - XR CHEST 2V FRONTAL/LAT / PROCEDURE REASON: Cough * * * * Physician Interpretation * * * * EXAMINATION: CHEST RADIOGRAPH (2 VIEW FRONTAL & LATERAL) CLINICAL HISTORY: Cough MQ: XC2_6 EXAM DATE/TIME: 10/15/2021 8:38 AM COMPARISON: 02/01/2020 RESULT: Lines, tubes, and devices: None. Lungs and pleura: No consolidation. No lung mass. No pleural effusion. No pneumothorax. Cardiomediastinal silhouette: Normal cardiomediastinal silhouette. Bones and soft tissues: Unremarkable. DIVISION OF RADIOLOGY Provider, [facility] - 10/15/2021 * * *Final Report* * * DATE OF EXAM: Oct 15 2021 8:38AM WOX 5291 - XR CHEST 2V FRONTAL/LAT / PROCEDURE REASON: Cough * * * * Physician Interpretation * * * * EXAMINATION: CHEST RADIOGRAPH (2 VIEW FRONTAL & LATERAL) CLINICAL HISTORY: Cough MQ: XC2_6 EXAM DATE/TIME: 10/15/2021 8:38 AM COMPARISON: 02/01/2020 RESULT: Lines, tubes, and devices: None. Lungs and pleura: No consolidation. No lung mass. No pleural effusion. No pneumothorax. Cardiomediastinal silhouette: Normal cardiomediastinal silhouette. Bones and soft tissues: Unremarkable. IMPRESSION IMPRESSION: No acute radiographic abnormality. [facility]anchise Special[facility] Transcribe Date/Time: Oct 15 2021 8:39A Dictated by : DAT FERNANDES MD This examination was interpreted and the report reviewed and electronically signed by: DAT FERNANDES MD on Oct 15 2021 8:39AM EST [facility] Radiology Study observation (narrative) [facility] XR Chest PA and LateralOrder ed By: Ccf Provider on 10-15-[address] [facility] XR Knee - bilateral 4 Viewso n 10-20-2020 IMPRESSION: No acute osseous findings. Bilateral mild patellofemoral degenerative changes. Minimal bilateral tibiofemoral degenerative changes. No significant change. Franchise Specialist: [facility] Transcribe Date/Time: Oct 20 2020 11:00A Dictated by : GIULIA LICEA MD This examination was interpreted and the report reviewed and electronically signed by: GIULIA LICEA MD on Oct 20 2020 11:03AM [facility] DIVISION OF RADIOLOGY * * *Final Report* * * DATE OF EXAM: Oct 20 2020 10:16AM STX 5618 - XR KNEE 4V AP/PA/LAT/MERCH DYLON / PROCEDURE REASON: multiple diagnoses * * * * Physician Interpretation * * * * EXAMINATION: XR KNEE 4V AP/PA/LAT/MERCH DYLON CLINICAL HISTORY: BILATERAL KNEE PAIN. NO KNOWN INJURIES. Pain in both knees, unspecified chronicity Pain in both knees, unspecified chronicity Technique: XR KNEE 4V AP/PA/LAT/MERCH DYLON -- BILATERAL with 4 EACH views on 5 images Comparison: 12/06/2018 RESULT: No fracture or dislocation. Mild patellofemoral degenerative changes with narrowing, early subchondral sclerosis and marginal osteophytes. Minimal tibiofemoral degenerative changes with small marginal osteophytes and no significant narrowing. Trace bilateral knee effusions. DIVISION OF RADIOLOGY Provider, [facility] - 10/20/2020 * * *Final Report* * * DATE OF EXAM: Oct 20 2020 10:16AM STX 5618 - XR KNEE 4V AP/PA/LAT/MERCH DYLON / PROCEDURE REASON: multiple diagnoses * * * * Physician Interpretation * * * * EXAMINATION: XR KNEE 4V AP/PA/LAT/MERCH DYLON CLINICAL HISTORY: BILATERAL KNEE PAIN. NO KNOWN INJURIES. Pain in both knees, unspecified chronicity Pain in both knees, unspecified chronicity Technique: XR KNEE 4V AP/PA/LAT/MERCH DYLON -- BILATERAL with 4 EACH views on 5 images Comparison: 12/06/2018 RESULT: No fracture or dislocation. Mild patellofemoral degenerative changes with narrowing, early subchondral sclerosis and marginal osteophytes. Minimal tibiofemoral degenerative changes with small marginal osteophytes and no significant narrowing. Trace bilateral knee effusions. IMPRESSION IMPRESSION: No acute osseous findings. Bilateral mild patellofemoral degenerative changes. Minimal bilateral tibiofemoral degenerative changes. No significant change. Franchise Specialist[facility] Transcribe Date/Time: Oct 20 2020 11:00A Dictated by : GIULIA LICEA MD This examination was interpreted and the report reviewed and electronically signed by: GIULIA LICEA MD on Oct 20 2020 11:03AM EST [facility] Radiology Study observation (narrative) [facility] XR Knee - bilateral 4 ViewsO rdered By: Ccf Provider on 10-20-[address] [facility] NOVEL CORONAVIRUS NASOPHARYN GEAL - [facility] SPECIMEN ONLYon 03-03-2020 SARS-COV-2 NOT DETECTED Normal NOT DETECTED [facility] Comment on above: Order Comment: Viral transport media (credit rating inspector with pink fluid) - Collection must be done while wearing N-95 mask, eye protection, gown and gloves. Please label ALL specimens as 2019-nCoV rule out and deliver by hand. This test was performed using real time PCR for the qualitative detection of SARS-CoV-2 nucleic acid. The test has been reviewed by the FDA and given emergency use authorization. This test was developed and its performance characteristics determined by [facility] at [facility]. This test is used for clinical purposes. It should not be regarded as investigational or for research. Result Comment: Nega tive results do not preclude SARS-CoV-2 infection and should not be used as the sole basis for treatment or other patient management decisions. Optimum specimen types and timing for peak viral levels during infections caused by SARS-CoV-2 has not been determined. The possibility of a false negative result should especially be considered if the patient's recent exposures or clinical presentation suggest that SARS-CoV-2 infection is probable, and diagnostic tests for other causes of illness (e.g., other respiratory illness) are negative. Collection of a new specimen and re-testing may be necessary if the patient is critically ill or clinically deteriorating. Performed By: #### L [id number] #### [facility] (DEFAULT) [address] [place] [address] CHEST 1 VIEWon 10-20-2018 CHEST 1 VIEW Performed at [facility] APPROVED BY: RAIMUNDO RIZVI MD EXAMINATION: CHEST RADIOGRAPH (PORTABLE SINGLE VIEW AP) Exam Date/Time: 10/20/2018 5:12 PMClinical History: Chest pain M: XCP_4Comparison: None available RESULT: Lines, tubes, and devices: None. Lungs and pleura: No airspace consolidation, lung mass, pleural effusion or pneumothorax. Cardiomediastinal silhouette: Stable cardiomediastinal silhouette. IMPRESSION:1. No acute radiographic abnormality. Normal [facility] CPKon 10-20-2018 CPK 136 U/L Normal 39-308 [facility] Comment on above: Performed By: #### L HEPA ####[address] [address] Comprehensive Panelon 2018 Albumin mass conc 4.1 g/dL Normal 3.4-5.0 [facility] Comment on above: Performed By: #### L HEPA ####[address] [address] ALP enzyme act/vol 147 U/L High 46-116 [facility] Comment on above: Performed By: #### L HEPA ####[address] [address] ALT-SGPT Blood 37 U/L Normal 14-63 [facility] Comment on above: Performed By: #### L HEPA ####[facility] [place], [place] [address] Anion gap 3 molar conc 16 mmol/L Normal 8-20 [facility] Comment on above: Performed By: #### L HEPA ####[address] [address] AST-SGOT Blood 35 U/L Normal 15-37 [facility] Comment on above: Performed By: #### L HEPA ####[place] [address] Bilirubin Ql (U) 0.3 mg/dL Normal 0.2-1.0 [facility] Comment on above: Performed By: #### L HEPA ####[place] [address] Calcium mass conc 9.3 mg/dL Normal 8.5-10.1 [facility] Comment on above: Performed By: #### L HEPA ####[place] [address] Chloride molar conc 100 mmol/L Normal 98-107 [facility] Comment on above: Performed By: #### L HEPA ####[place] [address] CO2 molar conc 24 mmol/L Normal 21-32 [facility] Comment on above: Performed By: #### L HEPA ####[address] [address] Creatinine mass conc 0.80 mg/dL Normal 0.67-1.17 [facility] Comment on above: Performed By: #### L HEPA ####[address] [address] Glucose mass conc 219 mg/dL High 70-99 [facility] Comment on above: Performed By: #### L HEPA ####[place] [address] Potassium molar conc 3.6 mmol/L Normal 3.5-5.1 [facility] Comment on above: Performed By: #### L HEPA ####[place] [address] Protein mass conc 7.1 g/dL Normal 6.4-8.2 [facility] Comment on above: Performed By: #### L HEPA ####[address] [address] Sodium molar conc 136 mmol/L Normal 136-145 [facility] Comment on above: Performed By: #### L HEPA ####[place] [address] Urea nitrogen mass conc (Bld) 15 mg/dL Normal 7-25 [facility] Comment on above: Performed By: #### L HEPA ####[place] [address] Urea nitrogen/Creatinine mass ratio 19 mg/mg Normal 10-20 [facility] Comment on above: Performed By: #### L HEPA ####[place] [address] Glucose Meteron 10-20-2018 Glucose mass conc 239 mg/dL High 70-99 [facility] Comment on above: Result Comment: KENNEY Ballesteros [place] [address] Performed By: #### L GLMT ####[place] [address] Hemogram/Diffon 10-20-2018 Abs. Baso 0.05 thou/cmm Normal 0.00-0.08 [facility] Comment on above: Performed By: #### L CBCD ####[place] [address] Abs. Tensas 0.62 thou/cmm Normal 0.20-1.00 [facility] Comment on above: Performed By: #### L CBCD ####[place] [address] Abs. Neut (ANC) 5.10 thou/cmm Normal 3.00-5.67 [facility] Comment on above: Performed By: #### L CBCD ####[place] [address] Basophils/100 WBC Auto (Bld) 0.6 % Normal [facility] Comment on above: Performed By: #### L CBCD ####[address] [address] Eosinophils Auto #/vol (Bld) 0.15 thou/cmm Normal 0.00-0.41 [facility] Comment on above: Performed By: #### L CBCD ####[address] [address] Eosinophils/100 WBC Auto (Bld) 1.7 % Normal [facility] Comment on above: Performed By: #### L CBCD ####[address] [address] Erythrocyte distribution width Auto Ratio (RBC) 12.0 % Normal 11.5-15.9 [facility] Comment on above: Performed By: #### L CBCD ####[address] [address] Hematocrit Auto Volume Fraction (Bld) 41.1 % Low 42.0-52.0 [facility] Comment on above: Performed By: #### L CBCD ####[address] [address] Hemoglobin mass conc (Bld) 14.4 g/dL Normal 14.0-18.0 [facility] Comment on above: Performed By: #### L CBCD ####[address] [address] Lymphocytes Auto #/vol (Bld) 3.08 thou/cmm Normal 1.50-3.65 [facility] Comment on above: Performed By: #### L CBCD ####[address] [address] Lymphocytes/100 WBC Auto (Bld) 34.2 % Normal [facility] Comment on above: Performed By: #### L CBCD ####[address] [address] MCH Auto Entitic mass (RBC) 31.3 pg High 27.0-31.0 [facility] Comment on above: Performed By: #### L CBCD ####[place] [address] MCHC Auto mass conc (RBC) 35.0 % Normal 32.0-36.0 [facility] Comment on above: Performed By: #### L CBCD ####[place] [address] MCV Auto Entitic volume (RBC) 89.3 fL Normal 80.0-94.0 [facility] Comment on above: Performed By: #### L CBCD ####[place] [address] Monocytes/100 WBC Auto (Bld) 6.9 % Normal [facility] Comment on above: Performed By: #### L CBCD ####[place] [address] Platelet mean volume Auto Entitic volume (Bld) 12.0 fL High 7.1-10.5 [facility] Comment on above: Performed By: #### L CBCD ####[place] [address] Platelets Auto #/vol (Bld) 250 thou/cmm Normal 150-400 [facility] Comment on above: Performed By: #### L CBCD ####[place] [address] RBC Auto #/vol (Bld) 4.60 mil/cmm Normal 4.60-6.20 [facility] Comment on above: Performed By: #### L CBCD ####[place] [address] Seg Neutrophil 56.6 % Normal [facility] Comment on above: Performed By: #### L CBCD ####[place] [address] WBC Auto #/vol (Bld) 9.0 thou/cmm Normal 4.8-10.8 [facility] Comment on above: Performed By: #### L CBCD ####[place] [address] MDRD eGFRon 10-20-2018 GFR/1.73 sq M predicted among non-blacks MDRD vol rate/area (S/P/Bld) mL/min/{1.73_m2} Normal >60mL/min/1 .73m2 [facility] Comment on above: Result Comment: If t he patient is , multiply the result by 1.210. Performed By: #### L HEPA ####[place] [address] Macroscopic Urinalysison Appearance Nom (U) CLEAR Normal [facility] Comment on above: Performed By: #### L HEPA ####[place] [address] Bilirubin Urine Negative Normal Negative [facility] Comment on above: Performed By: #### L HEPA ####[place] [address] Color Nom (U) YELLOW Normal [facility] Comment on above: Performed By: #### L HEPA ####[place] [address] Glucose Ql (U) Negative Normal Negative [facility] Comment on above: Performed By: #### L HEPA ####[place] [address] Hemoglobin,Urine Negative Normal Negative [facility] Comment on above: Performed By: #### L HEPA ####[place] [address] Ketone Urine Negative Normal Negative [facility] Comment on above: Performed By: #### L HEPA ####[place] [address] Leukocytes Esterase Negative Normal Negative [facility] Comment on above: Performed By: #### L HEPA ####[place] [address] Nitrites Urine Negative Normal Negative [facility] Comment on above: Performed By: #### L HEPA ####[place] [address] pH Test strip (U) 6.0 [pH] Normal 5.0-8.0 [facility] Comment on above: Performed By: #### L HEPA ####[facility] [place] [address] Protein Urine Negative Normal Negative [facility] Comment on above: Performed By: #### L HEPA ####[place] [address] Specific [place], Ur 1.020 Normal 1.005-1.030 [facility] Comment on above: Performed By: #### L HEPA ####[place] [address] Urobilinogen,Ur 0.2 EU/dL Normal 0.0-1.0 [facility] Comment on above: Performed By: #### L HEPA ####[place] [address] Troponin Ion 10-20-2018 Troponin I.cardiac mass conc ng/mL Normal <=0.07 [facility] Comment on above: Performed By: #### L HEPA ####[place] [address] Troponin I.cardiac mass conc ng/mL Normal <=0.07 [facility] Comment on above: Performed By: #### L HEPA ####[place] [address] Free Thyroxineon 09-04-2018 T4 free mass conc 0.69 ng/dL Normal 0.44-1.61 [facility] Comment on above: Performed By: #### L FT4 ####[place] [address] TSHon 09-04-2018 Thyrotropin Qn 1.36 uIU/mL Normal 0.34-4.82 [facility] Comment on above: Performed By: #### L TSH ####[place] [address] ANKLE 3V AP/LAT/OBL RIGHTon 07-14-2018 Protein mass conc Performed at [facility] APPROVED BY: Humberto Pinedo MD Right ankle, AP, oblique and lateral: CLINICAL INDICATION: Right ankle injury. Right ankle pain. COMPARISON: None. The ankle mortise is intact. There is no acute fracture. There is a small plantar calcaneal enthesophyte. There is lateral malleolar soft tissue swelling. IMPRESSION: No acute osseous abnormality. Normal [facility] Hemoglobin A1Con 02-21-2018 Glucose mass conc 137 mg/dL Normal [facility] Comment on above: Performed By: #### L A1C ####[address] [address] Hemoglobin A1c/Hemoglobin.total mass fraction (Bld) 6.4 % High 4.5-6.2 [facility] Comment on above: Performed By: #### L A1C ####[address] [address] Free Thyroxineon 02-20-2018 T4 free mass conc 0.75 ng/dL Normal 0.44-1.61 [facility] Comment on above: Performed By: #### L FT4 ####[place] [address] Hepatic Panelon 02-20-2018 Albumin mass conc 4.0 g/dL Normal 3.4-5.0 [facility] Comment on above: Performed By: #### L HEPA ####[place] [address] Albumin/Globulin mass ratio 1.2 {ratio} Normal 0.9-2.4 [facility] Comment on above: Performed By: #### L HEPA ####[address] [address] ALP enzyme act/vol 108 U/L Normal 46-116 [facility] Comment on above: Performed By: #### L HEPA ####[address] [address] ALT-SGPT Blood 22 U/L Normal 14-63 [facility] Comment on above: Performed By: #### L HEPA ####[place] [address] AST-SGOT Blood 20 U/L Normal 15-37 [facility] Comment on above: Performed By: #### L HEPA ####[place] [address] Bilirubin Ql (U) 0.6 mg/dL Normal 0.2-1.0 [facility] Comment on above: Performed By: #### L HEPA ####[place] [address] Bilirubin.direct mass conc mg/dL Normal 0.00-0.20 [facility] Comment on above: Performed By: #### L HEPA ####[place] [address] Bilirubin.indirect mass conc (Body fld) 0.5 mg/dL Normal 0.0-0.7 [facility] Comment on above: Performed By: #### L HEPA ####[place] [address] Protein mass conc 7.4 g/dL Normal 6.4-8.2 [facility] Comment on above: Performed By: #### L HEPA ####[place] [address] Lipid Profileon 02-20-2018 Cholesterol in HDL mass conc 30 mg/dL Normal >40 [facility] Comment on above: Performed By: #### L LIPD ####[place] [address] Cholesterol in LDL mass conc 168 mg/dL High 0-150 [facility] Comment on above: Performed By: #### L LIPD ####[place] [address] Cholesterol mass conc 230 mg/dL High 0-199 [facility] Comment on above: Performed By: #### L LIPD ####[place] [address] Cholesterol.total/Cho lesterol in HDL mass ratio 7.7 {ratio} High 2.1-7.3 [facility] Comment on above: Performed By: #### L LIPD ####[place] [address] Risk Factor 7.7 Normal [facility] Comment on above: Result Comment: Card iac Risk Factor The CHD risk factor is based on the total Chol/HDL ratio. Otherfactors affect CHD risk such as hypertension, smoking, diabetes,severe obesity and premature CHD. Cardiac Risk Total Chol/HDL ratio Men Women 1/2 avg risk 3.4-4.9 3.3-6.3 Avg risk 5.0-9.5 6.4-7.0 2x avg risk 9.6-23.3 7.1-10.9 3x avg risk >23.4 >11.0 Performed By: #### L LIPD ####[place] [address] Triglyceride Blood 158 mg/dL High 0-149 [facility] Comment on above: Performed By: #### L LIPD ####[place] [address] TSHon 02-20-2018 Thyrotropin Qn 1.23 uIU/mL Normal 0.34-4.82 [facility] Comment on above: Performed By: #### L TSH ####[place] [address] ABG, Bedside (Resp Dept)on 0 10-10-2017 Base Excess -5.0 mmol/L Low -3.0-3.0 [facility] Comment on above: Performed By: #### C /UR ####[address] [address] Bicarbonate (HCO3) 19.2 mmol/L Low 21.0-25.0 [facility] Comment on above: Performed By: #### C /UR ####[address] [address] CO2 20.0 mmol/L Low 23.0-27.0 [facility] Comment on above: Performed By: #### C /UR ####[address] [address] CO2 29.1 mm[Hg] Low 35.0-45.0 [facility] Comment on above: Performed By: #### C /UR ####[place] [address] [place] [address] O2 saturation 94.0 % Low 95.0-100.0 [facility] Comment on above: Performed By: #### C /UR ####[place] [address] [place] [address] Oxygen in arterial blood 66.0 mm[Hg] Low 80.0-100.0 [facility] Comment on above: Performed By: #### C /UR ####[place] [address] [place] [address] pH of blood 7.428 [pH] Normal 7.350-7.450 [facility] Comment on above: Performed By: #### C /UR ####[place] [address] [place] [address] Specimen Type arterial Normal [facility] Comment on above: Performed By: #### C /UR ####[place] [address] [place] [address] CR Chest PA/LATon 10-09-2017 CR Chest PA/LAT Patient Name: BIANCA HERRERA Diagnostic Radiology Exam Date/Time 10/09/2017 21:34:42 EST Exam CR Chest PA/LAT Ordering Physician MD MIRTA, [facility] Accession Number [id number] CPT4 Codes 54120 () Reason For Exam cough , fever, l sided cp Report CHEST: Indication: 41-year-old; cough and fever Views: Frontal and lateral Comparison: 12/07/2007 Time: 21:28 on 10/09/2017 FINDINGS: The trachea is midline. The cardiomediastinal silhouette is within normal limits. Retrocardiac infiltrate noted on the left. IMPRESSION: Left lower lung infiltrate. Report Dictated on Final Dictated: 10/09/2017 9:35 pm Dictating Physician: MD DAVIS JENNIFER R Signed Date and Time: 10/09/2017 9:36 pm Signed by: MD DAVIS JENNIFER R Transcribed Date and Time: 10/09/2017 9:35 [facility] CULTURE BLOODon 10-09-2017 CULTURE BLOOD Specimen Source Comment:[facility] Patient name: BIANCA DELAROSA Dany RaeRMickyN.: [id number] : 1975 Age: 41 Sex: M Ord. Physician: NELLY ORTIZ Location: [facility] Copy to: NELLY ORTIZ DISCHARGED: 10/09/17 Adm. Date: 10/09/17 MICROBIOLOGYORDER#: [id number] COLLECTED: 10/09/17 20:49SOURCE: Blood (Right -antecub) RECEIVED: 10/09/17 21:09 [facility] E N T S Specim en Source Comment:BloodCULTURE BLOOD FINAL 10/15/17 11:0610/15/17No growth at [address] [facility] Comment on above: Performed By: #### C /UR ####[address] [address] CULTURE BLOOD (Two)on 2017 CULTURE BLOOD (Two) Specimen Source Comment:[facility] Patient name: BIANCA DELAROSA Dany GoldsmithN.: [id number] : 1975 Age: 41 Sex: M Ord. Physician: NELLY ORTIZ Location: [facility] Copy to: NELLY ORTIZ DISCHARGED: 10/09/17 Adm. Date: 10/09/17 MICROBIOLOGYORDER#: [id number] COLLECTED: 10/09/17 20:49SOURCE: Blood (Right -antecub) RECEIVED: 10/09/17 21:07 EVET[facility] Alonzo E N T S Specim en Source Comment:BloodCULTURE BLOOD (Two) FINAL 10/15/17 11:0610/15/17No growth at [address] [facility] Comment on above: Performed By: #### C /UR ####[address] [address] CULTURE URINEon 10-09-2017 CULTURE URINE Specimen Source Comment:Urine, clean catch [facility] Patient name: BIANCA DELAROSA MMickyR.N.: [id number] : 1975 Age: 41 Sex: M Ord. Physician: NELLY ORTIZ Location: [address] [place] [address] Copy to: NELLY ORTIZ DISCHARGED: 10/09/17 Adm. Date: 10/09/17 MICROBIOLOGYORDER#: [id number] COLLECTED: 10/09/17 21:46SOURCE: Urine RECEIVED: 10/09/17 21:46 OE C O M M E N T S Specim en Source Comment:Urine, clean catchCULTURE URINE FINAL 10/11/17 07:No growth (<1,000 CFU/ml). [facility] Comment on above: Performed By: #### C /UR ####[address] [address] Comp Metabolic Panelon 10-09 Alanine aminotransferase (ALT) 29 U/L Normal 12-78 [facility] Comment on above: Performed By: #### H EMDF, CMP3, LACT3 ####[address] [place] [address] Albumin 3.9 g/dL Normal 3.4-5.0 [facility] Comment on above: Performed By: #### H EMDF, CMP3, LACT3 ####[address] [place] [address] Alkaline phosphatase (ALP) 97 U/L Normal 45-117 [facility] Comment on above: Performed By: #### H EMDF, CMP3, LACT3 ####[address] [place] [address] Anion gap 13 mmol/L Normal [facility] Comment on above: Performed By: #### H EMDF, CMP3, LACT3 ####[address]mf[address] [place] [address] Aspartate aminotransferase (AST) 25 U/L Normal 15-37 [facility] Comment on above: Performed By: #### H EMDF, CMP3, LACT3 ####[address] [place] [address] Bilirubin (total) 0.5 mg/dL Normal 0.2-1.0 [facility] Comment on above: Performed By: #### H EMDF, CMP3, LACT3 ####[address] [place] [address] Calcium 8.6 mg/dL Normal 8.2-10.1 [facility] Comment on above: Performed By: #### H EMDF, CMP3, LACT3 ####[address] [place] [address] Chloride 99 mmol/L Normal 98-109 [facility] Comment on above: Performed By: #### H EMDF, CMP3, LACT3 ####[address] [place] [address] CO2 22 mmol/L Normal 21-32 [facility] Comment on above: Performed By: #### H EMDF, CMP3, LACT3 ####[address] [place] [address] Creatinine 1.25 mg/dL Normal 0.55-1.40 [facility] Comment on above: Performed By: #### H EMDF, CMP3, LACT3 ####[address] [place] [address] eGFR (black) mL/min/{1.73_m2} Normal >60 [facility] Comment on above: Performed By: #### H EMDF, CMP3, LACT3 ####[address] [place] [address] eGFR (non-black) mL/min/{1.73_m2} Normal >60 [facility] Comment on above: Result Comment: Sour ce- MDRD equation with creatinine calibration to IDMS(NKDEP)eGFR not recommended for drug dose adjustment Performed By: #### H EMDF, CMP3, LACT3 ####[address] [address] Glucose mass conc 160 mg/dL High 70-100 [facility] Comment on above: Result Comment: . Performed By: #### H EMDF, CMP3, LACT3 ####[address] [address] Potassium molar conc 3.8 mmol/L Normal 3.5-5.1 [facility] Comment on above: Performed By: #### H EMDF, CMP3, LACT3 ####[address] [address] Protein 7.1 g/dL Normal 6.4-8.2 [facility] Comment on above: Performed By: #### H EMDF, CMP3, LACT3 ####[address] [address] Sodium 134 mmol/L Low 135-145 [facility] Comment on above: Performed By: #### H EMDF, CMP3, LACT3 ####[address] [address] Urea nitrogen 13 mg/dL Normal 7-25 [facility] Comment on above: Performed By: #### H EMDF, CMP3, LACT3 ####[address] [address] Hemogram w/ Autodiffon 10-09 Abs Baso Cnt 0.0 10*3/uL Normal 0.0-0.2 [facility] Comment on above: Performed By: #### H EMDF, CMP3, LACT3 ####[address] [address] Basophils/100 WBC Auto (Bld) 0.5 % Normal [facility] Comment on above: Performed By: #### H EMDF, CMP3, LACT3 ####[address] [address] Eosinophils 0.1 10*3/uL Normal 0.0-0.5 [facility] Comment on above: Performed By: #### H EMDF, CMP3, LACT3 ####[facility] CenterDebuco2374 [place] [address] Eosinophils/100 leukocytes 0.7 % Normal [facility] Comment on above: Performed By: #### H EMDF, CMP3, LACT3 ####[place] [address] [place] [address] Erythrocyte distribution width Auto Ratio (RBC) 11.5 % Normal 11.5-14.5 [facility] Comment on above: Performed By: #### H EMDF, CMP3, LACT3 ####[place] [address] [place] [address] Erythrocytes (RBC) 4.78 10*6/uL Normal 4.40-5.90 [facility] Comment on above: Performed By: #### H EMDF, CMP3, LACT3 ####[facility] CenterYdmepx2526 [place] [address] Granulocytes/100 WBC (Bld) 84.3 % Normal [facility] Comment on above: Performed By: #### H EMDF, CMP3, LACT3 ####[facility] CenterNvsbul9253 [place] [address] Hematocrit (HCT) 43.6 % Normal 40.0-52.0 [facility] Comment on above: Performed By: #### H EMDF, CMP3, LACT3 ####[place] [address] [place] [address] Hemoglobin mass conc (Bld) 14.7 g/dL Normal 13.0-18.0 [facility] Comment on above: Performed By: #### H EMDF, CMP3, LACT3 ####[place] [address] [place] [address] Lymphocytes 0.8 10*3/uL Low 1.0-4.3 [facility] Comment on above: Performed By: #### H EMDF, CMP3, LACT3 ####[address] [place] [address] Lymphocytes/100 leukocytes 8.2 % Normal [facility] Comment on above: Performed By: #### H EMDF, CMP3, LACT3 ####[place] [id number] [place] [address] MCH 30.8 pg Normal 26.0-34.0 [facility] Comment on above: Performed By: #### H EMDF, CMP3, LACT3 ####[facility] CenterAdyrwa6685 [place] [address] MCHC mass conc (RBC) 33.8 % Normal 32.0-36.0 [facility] Comment on above: Performed By: #### H EMDF, CMP3, LACT3 ####[facility] CenterFishzq2581 [place] [address] MCV 91.2 fL Normal 80.0-98.0 [facility] Comment on above: Performed By: #### H EMDF, CMP3, LACT3 ####[place] [place] [address] Monocytes 0.6 10*3/uL Normal 0.0-0.8 [facility] Comment on above: Performed By: #### H EMDF, CMP3, LACT3 ####[id number] [place] [address] Monocytes/100 leukocytes 6.3 % Normal [facility] Comment on above: Performed By: #### H EMDF, CMP3, LACT3 ####[id number] [place] [address] Neutrophils 8.2 10*3/uL High 1.8-7.0 [facility] Comment on above: Performed By: #### H EMDF, CMP3, LACT3 ####[place] [id number] [place] [address] Platelet mean volume (PMV) 10.4 fL Normal 7.4-10.4 [facility] Comment on above: Performed By: #### H EMDF, CMP3, LACT3 ####[id number] [place] [address] Platelets 205 10*3/uL Normal 140-440 [facility] Comment on above: Performed By: #### H EMDF, CMP3, LACT3 ####[facility] CenterFgfdgr3098 [place] [address] WBC (Leukocytes) 9.7 10*3/uL Normal 3.6-10.7 [facility] Comment on above: Performed By: #### H EMDF, CMP3, LACT3 ####[place] [place] [address] Lactic Acidon 10-09-2017 Lactate 1.8 mmol/L Normal 0.4-2.0 [facility] Comment on above: Performed By: #### H EMDF, CMP3, LACT3 ####[address] [id number] [place] [address] Protimeon 10-09-2017 aPTT 30.6 s High 20.0-30.5 [facility] Comment on above: Result Comment: NOTE : The therapeutic time for Heparin anticoagulation,based on Xa activity inhibition, is an APTT of 46-80seconds. Performed By: #### P T/AP ####[address] [address] INR Coag RelTime (PPP) 1.03 {INR} Normal 0.90-1.10 [facility] Comment on above: Result Comment: Vahe mmended Anticoagulant Therapy:SEE BELOW----- INR of 2.0 - 3.0 :- Prophylaxis of Venous Thrombosis (high-risk surgery)- Treatment of Venous Thrombosis- Treatment of Pulmonary Embolism (Includes tissue heartvalves, Acute Myocardial Infarction to prevent systemicembolism, Valvular Heart Disease, and Atrial Fibrillation)----- INR of 2.5 - 3.5 :- Mechanical Prosthetic Valves (high risk)- If oral anticoagulant therapy is used to preventMyocardial Infarction Performed By: #### P T/AP ####[address] [address] Prothrombin time (PT) Coag time (PPP) 10.8 s Normal 9.0-12.0 [facility] Comment on above: Result Comment: . Performed By: #### P T/AP ####[address] [id number] [place] [address] Rapid Flu Aon 10-09-2017 Rapid Influenza A Not Detected Normal Not Detected [facility] Comment on above: Performed By: #### R PFAB ####[address] [address] Rapid Influenza B Not Detected Normal Not Detected [facility] Comment on above: Performed By: #### R PFAB ####[address] [place] [address] Urinalysis,Macroon 8 Bilirubin (direct) Negative Normal Negative [facility] Comment on above: Performed By: #### U AMAC, UAMIC ####[address] [place] [address] Ketone,Urine Negative Normal Negative [facility] Comment on above: Performed By: #### U AMAC, UAMIC ####[address] [place] [address] Occult Blood,Ur Negative Normal Negative [facility] Comment on above: Performed By: #### U AMAC, UAMIC ####[address] [place] [address] Specific Bowdle,Urine 1.015 Normal 1.005-1.030 [facility] Comment on above: Performed By: #### U AMAC, UAMIC ####[address] [place] [address] Total Protein,Urine Trace (15) Normal Negative [facility] Comment on above: Performed By: #### U AMAC, UAMIC ####[address] [place] [address] Urine, appearance Sl. Cloudy Normal Clear [facility] Comment on above: Performed By: #### U AMAC, UAMIC ####[address] [place] [address] Urine, color Yellow Normal Lt. Yellow [facility] Comment on above: Performed By: #### U AMAC, UAMIC ####[address] [place] [address] Urine, glucose presence NEG (Normal) Normal Negative [facility] Comment on above: Performed By: #### U AMAC, UAMIC ####[address] [place] [address] Urine, nitrite presence Negative Normal Negative [facility] Comment on above: Performed By: #### U AMAC, UAMIC ####[address] [place] [address] Urine, pH 8.0 [pH] Normal 5.0-8.0 [facility] Comment on above: Performed By: #### U AMAC, UAMIC ####[address] [place] [address] Urine, urobilinogen 1.0 mg/dL Normal 0-1 [facility] Comment on above: Performed By: #### U AMAC, UAMIC ####[address] [place] [address] WBC (Leukocytes) Trace Normal Negative [facility] Comment on above: Performed By: #### U AMAC, UAMIC ####[address] [place] [address] Urinalysis,Microscopicon Urine, bacteria in sediment Moderate (6-50) Normal Negative [facility] Comment on above: Performed By: #### U AMAC, UAMIC ####[address] [place] [address] Urine, epithelial cells in sediment 0-2 Normal 3-5 [facility] Comment on above: Performed By: #### U AMAC, UAMIC ####[address] [place] [address] Urine, erythrocytes in sediment by area Negative Normal 0-2 [facility] Comment on above: Performed By: #### U AMAC, UAMIC ####[address] [place] [address] Urine, leukocytes in sedmiment 0-2 Normal 0-5 [facility] Comment on above: Performed By: #### U AMAC, UAMIC ####[address] [place] [address] CULTURE URINEon 05-03-2017 CULTURE URINE Specimen Source Comment:Urine, clean catch [facility] Patient name: BIANCA DELAROSA Dany MMickyRMickyN.: [id number] : 1975 Age: 41 Sex: M Ord. Physician: ALEJANDRO CALDERON Location: [address] [place] [address] Copy to: ALEJANDRO CALDERON DISCHARGED: 05/03/17 Adm. Date: 05/03/17 MICROBIOLOGYORDER#: [id number] COLLECTED: 05/03/17 14:19SOURCE: Urine RECEIVED: 05/03/17 14:23 OE C O M M E N T S Specim en Source Comment:Urine, clean catchCULTURE URINE FINAL 05/04/17 17:25005/04/17No growth (<1,000 CFU/ml). Normal [facility] Comment on above: Performed By: #### C /UR ####[address] [place] [address] Urinalysis,Macroon 7 Bilirubin (direct) Negative Normal Negative [facility] Comment on above: Performed By: #### U AMAC ####[facility] [place] [address] Ketone,Urine Negative Normal Negative [facility] Comment on above: Performed By: #### U AMAC ####[facility] CenterUlviou5948 [place] [address] Occult Blood,Ur Negative Normal Negative [facility] Comment on above: Performed By: #### U AMAC ####[facility] CenterNtcpcm3553 [place] [address] Specific Bowdle,Urine 1.010 Normal 1.005-1.030 [facility] Comment on above: Performed By: #### U AMAC ####[facility] CenterCouogn0241 [place] [address] Total Protein,Urine Negative Normal Negative [facility] Comment on above: Performed By: #### U AMAC ####[address] [place] [address] Urine, appearance Clear Normal Clear [facility] Comment on above: Performed By: #### U AMAC ####[address] Sy[address] [place] [address] Urine, color Yellow Normal Lt. Yellow [facility] Comment on above: Performed By: #### U AMAC ####[address] E[address] [address] Urine, glucose presence NEG (Normal) Normal Negative [facility] Comment on above: Performed By: #### U AMAC ####[address] Ydmgac[address] [place] [address] Urine, nitrite presence Negative Normal Negative [facility] Comment on above: Performed By: #### U AMAC ####[address] [place] [address] Urine, pH 8.0 [pH] Normal 5.0-8.0 [facility] Comment on above: Performed By: #### U AMAC ####[address] [place] [address] Urine, urobilinogen Normal (0.2) Normal 0-1 [facility] Comment on above: Performed By: #### U AMAC ####[address]tkw[address] [place] [address] WBC (Leukocytes) Negative Normal Negative [facility] Comment on above: Performed By: #### U AMAC ####[facility] CenterCwkupa3623 [place] [address] Vital Signs Date Time Vital Sign Value Performing Clinician Facility 03-10-2025 08:26-0400 Body mass index (BMI) [Ratio] 35.49 kg/m2 Nelda Acostair TAX ACCOUNTANT.CIRCUIT COURT CLERK Work Phone: [facility] 03-10-2025 08:26-0400 Body weight 125.37 kg Nelda Acostair TAX ACCOUNTANT.CIRCUIT COURT CLERK Work Phone: [facility] 03-10-2025 08:26-0400 Diastolic blood pressure 74 mm[Hg] Nelda Braydon TAX ACCOUNTANT.CIRCUIT COURT CLERK Work Phone: [facility] 03-10-2025 08:26-0400 Heart rate 98 /min Nelda Braydon TAX ACCOUNTANT.CIRCUIT COURT CLERK Work Phone: [facility] 03-10-2025 08:26-0400 Respiratory rate 16 /min Nelda Braydon TAX ACCOUNTANT.CIRCUIT COURT CLERK Work Phone: [facility] 03-10-2025 08:26-0400 SaO2% (BldA) [Mass fraction] 96 % Nelda Braydon TAX ACCOUNTANT.CIRCUIT COURT CLERK Work Phone: [facility] 03-10-2025 08:26-0400 Systolic blood pressure 114 mm[Hg] Nelda Braydon TAX ACCOUNTANT.CIRCUIT COURT CLERK Work Phone: [facility] 03-06-2025 06:52-0400 Body mass index (BMI) [Ratio] 35.69 kg/m2 Kenyatta Castaneda PA-C Work Phone: [facility] 03-06-2025 06:52-0400 Body temperature 97 [degF] Kenyatta Castaneda PA-C Work Phone: [facility] 03-06-2025 06:52-0400 Body weight 126.1 kg Kenyatta Castaneda PA-C Work Phone: [facility] 03-06-2025 06:52-0400 Diastolic blood pressure 82 mm[Hg] Kenyatta Castaneda PA-C Work Phone: [facility] 03-06-2025 06:52-0400 Heart rate 94 /min Kenyatta Castaneda PA-C Work Phone: [facility] 03-06-2025 06:52-0400 Respiratory rate 18 /min Kenyatta Castaneda PA-C Work Phone: [facility] 03-06-2025 06:52-0400 SaO2% (BldA) [Mass fraction] 94 % Kenyatta Castaneda PA-C Work Phone: [facility] 03-06-2025 06:52-0400 Systolic blood pressure 126 mm[Hg] Kenyatta Castaneda PA-C Work Phone: [facility] 02-06-2025 07:55-0400 Body height 188 cm Lissy Bowman MD Work Phone: [facility] 02-06-2025 07:55-0400 Body mass index (BMI) [Ratio] 36.98 kg/m2 Lissy Bowman MD Work Phone: [facility] 02-06-2025 07:55-0400 Body weight 130.64 kg Lissy Bowman MD Work Phone: [facility] 02-06-2025 07:55-0400 Diastolic blood pressure 84 mm[Hg] Lissy Bowman MD Work Phone: [facility] 02-06-2025 07:55-0400 Heart rate 100 /min Lissy Bowman MD Work Phone: [facility] 02-06-2025 07:55-0400 SaO2% (BldA) [Mass fraction] 96 % Lissy Bowman MD Work Phone: [facility] 02-06-2025 07:55-0400 Systolic blood pressure 125 mm[Hg] Lissy Bowman MD Work Phone: [facility] 01-21-2025 11:14-0400 Body mass index (BMI) [Ratio] 36.72 kg/m2 Humberto Jackson MD Work Phone: [facility] 01-21-2025 11:14-0400 Body temperature 97.81 [degF] Humberto Jackson MD Work Phone: [facility] 01-21-2025 11:14-0400 Body weight 129.73 kg Humberto Jackson MD Work Phone: [facility] 01-21-2025 11:14-0400 Diastolic blood pressure 88 mm[Hg] Humberto Jackson MD Work Phone: [facility] 01-21-2025 11:14-0400 Heart rate 88 /min Humberto Jackson MD Work Phone: [facility] 01-21-2025 11:14-0400 Respiratory rate 16 /min Humberto Jackson MD Work Phone: [facility] 01-21-2025 11:14-0400 SaO2% (BldA) [Mass fraction] 95 % Humberto Jackson MD Work Phone: [facility] 01-21-2025 11:14-0400 Systolic blood pressure 124 mm[Hg] Humberto Jackson MD Work Phone: [facility] 01-06-2025 14:22-0400 Body height 188 cm Ja Mckeon MD Work Phone: [facility] 01-06-2025 14:22-0400 Body mass index (BMI) [Ratio] 36.29 kg/m2 Ja Mckeon MD Work Phone: [facility] 01-06-2025 14:22-0400 Body weight 128.2 kg Ja Mckeon MD Work Phone: [facility] 01-06-2025 14:22-0400 Diastolic blood pressure 86 mm[Hg] Ja Mckeon MD Work Phone: [facility] 01-06-2025 14:22-0400 Heart rate 80 /min Ja Mckeon MD Work Phone: [facility] 01-06-2025 14:22-0400 Respiratory rate 16 /min Ja Mckeon MD Work Phone: [facility] 01-06-2025 14:22-0400 SaO2% (BldA) [Mass fraction] 96 % Ja Mckeon MD Work Phone: [facility] 01-06-2025 14:22-0400 Systolic blood pressure 126 mm[Hg] Ja Mckeon MD Work Phone: [facility] 12-30-2024 08:04-0400 Body height 188 cm Humberto Jackson MD Work Phone: [facility] 12-30-2024 08:04-0400 Body mass index (BMI) [Ratio] 36.08 kg/m2 Humberto Jackson MD Work Phone: [facility] 12-30-2024 08:04-0400 Body weight 127.46 kg Humberto Jackson MD Work Phone: [facility] 12-30-2024 08:04-0400 Diastolic blood pressure 74 mm[Hg] Humberto Jackson MD Work Phone: [facility] 12-30-2024 08:04-0400 Heart rate 88 /min Humberto Jackson MD Work Phone: [facility] 12-30-2024 08:04-0400 Respiratory rate 18 /min Humberto Jackson MD Work Phone: [facility] 12-30-2024 08:04-0400 SaO2% (BldA) [Mass fraction] 92 % Humberto Jackson MD Work Phone: [facility] Comment on above: walking 12-30-2024 08:04-0400 Systolic blood pressure 118 mm[Hg] Humberto Jackson MD Work Phone: [facility] 12-20-2024 09:41-0400 Body mass index (BMI) [Ratio] 36.83 kg/m2 Humberto Jackson MD Work Phone: [facility] 12-20-2024 09:41-0400 Body weight 130.18 kg Humberto Jackson MD Work Phone: [facility] 12-20-2024 09:41-0400 Diastolic blood pressure 84 mm[Hg] Humberto Jackson MD Work Phone: [facility] 12-20-2024 09:41-0400 Heart rate 88 /min Humberto Jackson MD Work Phone: [facility] 12-20-2024 09:41-0400 Respiratory rate 16 /min Humberto Jackson MD Work Phone: [facility] 12-20-2024 09:41-0400 Systolic blood pressure 128 mm[Hg] Humberto Jackson MD Work Phone: [facility] 11-22-2024 08:14-0500 Body mass index (BMI) [Ratio] 36.96 kg/m2 Humberto Jackson MD Work Phone: [facility] 11-22-2024 08:14-0500 Body weight 130.64 kg Humberto Jackson MD Work Phone: [facility] 11-22-2024 08:14-0500 Diastolic blood pressure 90 mm[Hg] Humberto Jackson MD Work Phone: [facility] 11-22-2024 08:14-0500 Heart rate 92 /min Humberto Jackson MD Work Phone: [facility] 11-22-2024 08:14-0500 Respiratory rate 16 /min Humberto Jackson MD Work Phone: [facility] 11-22-2024 08:14-0500 Systolic blood pressure 120 mm[Hg] Humberto Jackson MD Work Phone: [facility] 09-17-2024 09:37-0500 Diastolic blood pressure 78 mm[Hg] Humberto Jackson MD Work Phone: [facility] 09-17-2024 09:37-0500 Systolic blood pressure 114 mm[Hg] Humberto Jackson MD Work Phone: [facility] 09-17-2024 09:25-0500 Body mass index (BMI) [Ratio] 37.09 kg/m2 Humberto Jackson MD Work Phone: [facility] 09-17-2024 09:25-0500 Body weight 131.09 kg Humberto Jackson MD Work Phone: [facility] 09-17-2024 09:25-0500 Heart rate 90 /min Humberto Jackson MD Work Phone: [facility] 09-17-2024 09:25-0500 Respiratory rate 16 /min Humberto Jackson MD Work Phone: [facility] 08-19-2024 15:13-0500 Diastolic blood pressure 84 mm[Hg] Humberto Jackson MD Work Phone: [facility] 08-19-2024 15:13-0500 Systolic blood pressure 128 mm[Hg] Humberto Jackson MD Work Phone: [facility] 08-19-2024 14:50-0500 Body mass index (BMI) [Ratio] 37.6 kg/m2 Humberto Jackson MD Work Phone: [facility] 08-19-2024 14:50-0500 Body weight 132.9 kg Humberto Jackson MD Work Phone: [facility] 08-19-2024 14:50-0500 Heart rate 86 /min Humberto Jackson MD Work Phone: [facility] 08-19-2024 14:50-0500 Respiratory rate 16 /min Humberto Jackson MD Work Phone: [facility] 06-12-2024 09:00-0400 Diastolic blood pressure 97 mm[Hg] Storm Golias PT Work Phone: [facility] 06-12-2024 09:00-0400 Heart rate 82 /min Storm Golias PT Work Phone: [facility] 06-12-2024 09:00-0400 Systolic blood pressure 142 mm[Hg] Storm Golias PT Work Phone: [facility] 06-06-2024 07:52-0400 Body mass index (BMI) [Ratio] 38.37 kg/m2 Dominik Kelley APRN.CIRCUIT COURT CLERK Work Phone: [facility] 06-06-2024 07:52-0400 Body weight 135.63 kg Dominik Kelley APRN.CIRCUIT COURT CLERK Work Phone: [facility] 06-06-2024 07:52-0400 Diastolic blood pressure 80 mm[Hg] Dominik Kelley APRN.CIRCUIT COURT CLERK Work Phone: [facility] 06-06-2024 07:52-0400 Heart rate 83 /min Dominik Kelley APRN.CIRCUIT COURT CLERK Work Phone: [facility] 06-06-2024 07:52-0400 Respiratory rate 14 /min Dominik Kelley APRN.CIRCUIT COURT CLERK Work Phone: [facility] 06-06-2024 07:52-0400 Systolic blood pressure 116 mm[Hg] Dominik Kelley APRN.CIRCUIT COURT CLERK Work Phone: [facility] 05-21-2024 15:44-0400 Body mass index (BMI) [Ratio] 38.12 kg/m2 Dominik Kelley APRN.CIRCUIT COURT CLERK Work Phone: [facility] 05-21-2024 15:44-0400 Body weight 134.72 kg Dominik Kelley APRN.CIRCUIT COURT CLERK Work Phone: [facility] 05-21-2024 15:44-0400 Diastolic blood pressure 98 mm[Hg] Dominik Kelley APRN.CIRCUIT COURT CLERK Work Phone: [facility] 05-21-2024 15:44-0400 Heart rate 105 /min Dominik Kelley TAX ACCOUNTANT.CIRCUIT COURT CLERK Work Phone: [facility] 05-21-2024 15:44-0400 Respiratory rate 14 /min Dominik Kelley TAX ACCOUNTANT.CIRCUIT COURT CLERK Work Phone: [facility] 05-21-2024 15:44-0400 Systolic blood pressure 150 mm[Hg] Dominik Kelley TAX ACCOUNTANT.CIRCUIT COURT CLERK Work Phone: [facility] 01-31-2024 13:54-0400 Diastolic blood pressure 83 mm[Hg] Jacob Prado Jr., MD Work Phone: [facility] 01-31-2024 13:54-0400 Systolic blood pressure 130 mm[Hg] Jacob Prado Jr., MD Work Phone: [facility] 01-31-2024 13:43-0400 Body height 188 cm Jacob Prado Jr., MD Work Phone: [facility] 01-31-2024 13:43-0400 Body mass index (BMI) [Ratio] 38.68 kg/m2 Jacob Prado Jr., MD Work Phone: [facility] 01-31-2024 13:43-0400 Body weight 136.7 kg Jacob Prado Jr., MD Work Phone: [facility] 01-31-2024 13:43-0400 Heart rate 78 /min Jacob Prado Jr., MD Work Phone: [facility] 01-31-2024 13:43-0400 SaO2% (BldA) [Mass fraction] 100 % aJcob Prado Jr., MD Work Phone: [facility] 01-17-2024 07:58-0400 Body height 188 cm [facility] TAX ACCOUNTANT.CIRCUIT COURT CLERK Work Phone: [facility] 01-17-2024 07:58-0400 Body weight 134.9 kg [facility] TAX ACCOUNTANT.CIRCUIT COURT CLERK Work Phone: [facility] 01-17-2024 07:58-0400 Diastolic blood pressure 91 mm[Hg] [facility] TAX ACCOUNTANT.CIRCUIT COURT CLERK Work Phone: [facility] 01-17-2024 07:58-0400 Heart rate 88 /min [facility] TAX ACCOUNTANT.CIRCUIT COURT CLERK Work Phone: [facility] 01-17-2024 07:58-0400 SaO2% (BldA) [Mass fraction] 95 % [facility] TAX ACCOUNTANT.CIRCUIT COURT CLERK Work Phone: 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 12-06-2023 09:13-0500 Diastolic blood pressure 78 mm[Hg] Humberto Jackson MD Work Phone: [facility] 12-06-2023 09:13-0500 Systolic blood pressure 132 mm[Hg] Humberto Jackson MD Work Phone: [facility] 12-06-2023 08:37-0500 Body height 188 cm Humberto Jackson MD Work Phone: [facility] 12-06-2023 08:37-0500 Body weight 132.45 kg Humberto Jackson MD Work Phone: [facility] 12-06-2023 08:37-0500 Heart rate 72 /min Humberto Jackson MD Work Phone: [facility] 12-06-2023 08:37-0500 Respiratory rate 16 /min Humberto Jackson MD Work Phone: [facility] 04-15-2023 11:34-0400 Body temperature 99.3 [degF] Dr. Humberto Jackson Work Phone: [facility] 04-15-2023 11:34-0400 Diastolic blood pressure 77 mm[Hg] Dr. Humberto Jackson Work Phone: [facility] 07-08-2023 11:34-0400 Heart rate 87 /min Dr. Humberto Jackson Work Phone: 3(972)652-191349 [place] [address] 04-15-2023 11:34-0400 Respiratory rate 16 /min Dr. Humberto Jackson Work Phone: 3(289)767-751454 [place] [address] 04-15-2023 11:34-0400 SaO2% (BldA) [Mass fraction] 95 % Dr. Humberto Jackson Work Phone: 2(240)379-441154 [place] [address] 04-15-2023 11:34-0400 Systolic blood pressure 113 mm[Hg] Dr. Humberto Jackson Work Phone: 8(151)861-466754 [place] [address] 04-15-2023 05:01-0400 Inhaled oxygen flow rate 2 L/min Dr. Humberto Jackson Work Phone: 6(822)735-027554 [place] [address] 04-14-2023 17:03-0400 Body temperature 99.8 [degF] Dr. Humberto Jackson Work Phone: 4(274)518-598554 [place] [address] 04-14-2023 17:03-0400 Diastolic blood pressure 81 mm[Hg] Dr. Humberto Jackson Work Phone: 3(968)701-793754 [place] [address] 04-14-2023 17:03-0400 Heart rate 99 /min Dr. Humberto Jackson Work Phone: 5(547)260-577149 [place] [address] 04-14-2023 17:03-0400 Respiratory rate 16 /min Dr. Humberto Jackson Work Phone: 6(972)115-863754 [place] [address] 04-14-2023 17:03-0400 SaO2% (BldA) [Mass fraction] 91 % Dr. Humberto Jackson Work Phone: 3(957)869-213749 [place] [address] 04-14-2023 17:03-0400 Systolic blood pressure 117 mm[Hg] Dr. Humberto Jackson Work Phone: 5(385)546-855254 [place] [address] 04-14-2023 16:13-0400 Body height 187.[address] Humberto Jackson Work Phone: 0(542)088-162154 [place] [address] 04-14-2023 16:13-0400 Body mass index (BMI) [Ratio] 36.9 kg/m2 Dr. Humberto Jackson Work Phone: [facility] 04-14-2023 16:13-0400 Body weight 130.[address] Humberto Jackson Work Phone: [facility] 04-14-2023 13:41-0400 Body weight 130.18 kg Dominik Kelley TAX ACCOUNTANT.CIRCUIT COURT CLERK Work Phone: [facility] 04-14-2023 13:41-0400 Diastolic blood pressure 88 mm[Hg] Dominik Kelley TAX ACCOUNTANT.CIRCUIT COURT CLERK Work Phone: [facility] 04-14-2023 13:41-0400 Heart rate 114 /min Dominik Kelley TAX ACCOUNTANT.CIRCUIT COURT CLERK Work Phone: [facility] 04-14-2023 13:41-0400 Respiratory rate 16 /min Dominik Kelley TAX ACCOUNTANT.CIRCUIT COURT CLERK Work Phone: [facility] 04-14-2023 13:41-0400 Systolic blood pressure 132 mm[Hg] Dominik Kelley TAX ACCOUNTANT.CIRCUIT COURT CLERK Work Phone: [facility] 04-10-2023 08:02-0400 Body temperature 97.7 [degF] Kenyatta Castaneda PA-C Work Phone: [facility] 04-10-2023 08:02-0400 Body weight 130.64 kg Kenyatta Castaneda PA-C Work Phone: [facility] 04-10-2023 08:02-0400 Diastolic blood pressure 82 mm[Hg] Kenyatta Castaneda PA-C Work Phone: [facility] 04-10-2023 08:02-0400 Heart rate 96 /min Kenyatta Castaneda PA-C Work Phone: [facility] 04-10-2023 08:02-0400 Respiratory rate 18 /min Kenyatta Castaneda PA-C Work Phone: [facility] 04-10-2023 08:02-0400 Systolic blood pressure 136 mm[Hg] Kenyatta Castaneda PA-C Work Phone: [facility] 01-27-2023 15:46-0400 Body height 188 cm [facility] TAX ACCOUNTANT.CIRCUIT COURT CLERK Work Phone: [facility] 01-27-2023 15:46-0400 Body weight 131.63 kg [facility] TAX ACCOUNTANT.CIRCUIT COURT CLERK Work Phone: [facility] 01-27-2023 15:46-0400 Diastolic blood pressure 85 mm[Hg] [facility] TAX ACCOUNTANT.CIRCUIT COURT CLERK Work Phone: [facility] 01-27-2023 15:46-0400 Heart rate 102 /min [facility] TAX ACCOUNTANT.CIRCUIT COURT CLERK Work Phone: [facility] 01-27-2023 15:46-0400 SaO2% (BldA) [Mass fraction] 97 % [facility] TAX ACCOUNTANT.CIRCUIT COURT CLERK Work Phone: [facility] 01-27-2023 15:46-0400 Systolic blood pressure 142 mm[Hg] [facility] TAX ACCOUNTANT.CIRCUIT COURT CLERK Work Phone: [facility] 01-09-2023 08:18-0400 Body weight 131.09 kg Dominik Kelley TAX ACCOUNTANT.CIRCUIT COURT CLERK Work Phone: [facility] 01-09-2023 08:18-0400 Diastolic blood pressure 82 mm[Hg] Dominik Knoble TAX ACCOUNTANT.CIRCUIT COURT CLERK Work Phone: [facility] 01-09-2023 08:18-0400 Heart rate 80 /min Dominik Nadegeoble TAX ACCOUNTANT.CIRCUIT COURT CLERK Work Phone: [facility] 01-09-2023 08:18-0400 Respiratory rate 16 /min Dominik Alfie TAX ACCOUNTANT.CIRCUIT COURT CLERK Work Phone: [facility] 01-09-2023 08:18-0400 Systolic blood pressure 124 mm[Hg] Dominik Alfie TAX ACCOUNTANT.CIRCUIT COURT CLERK Work Phone: [facility] 12-07-2022 08:57-0500 Body weight 129.73 kg Humberto Jackson MD Work Phone: [facility] 12-07-2022 08:57-0500 Diastolic blood pressure 84 mm[Hg] Humberto Jackson MD Work Phone: [facility] 12-07-2022 08:57-0500 Heart rate 84 /min Humberto Jackson MD Work Phone: [facility] 12-07-2022 08:57-0500 Respiratory rate 16 /min Humberto Jackson MD Work Phone: [facility] 12-07-2022 08:57-0500 Systolic blood pressure 124 mm[Hg] Humberto Jackson MD Work Phone: [facility] 08-30-2022 08:32-0500 Diastolic blood pressure 83 mm[Hg] Johanna Bliss MD Work Phone: [facility] 08-30-2022 08:32-0500 Heart rate 78 /min Johanna Bliss MD Work Phone: [facility] 08-30-2022 08:32-0500 Respiratory rate 16 /min Johanna Bliss MD Work Phone: [facility] 08-30-2022 08:32-0500 SaO2% (BldA) [Mass fraction] 90 % Johanna Bliss MD Work Phone: [facility] 08-30-2022 08:32-0500 Systolic blood pressure 124 mm[Hg] Johanna Bliss MD Work Phone: [facility] 08-30-2022 07:09-0500 Body temperature 97.5 [degF] Johanna Bliss MD Work Phone: [facility] 08-17-2022 12:34-0500 Body temperature 97.5 [degF] Kenyatta Castaneda PA-C Work Phone: [facility] 08-17-2022 12:34-0500 Body weight 127.91 kg Kenyatta Castaneda PA-C Work Phone: [facility] 08-17-2022 12:34-0500 Diastolic blood pressure 86 mm[Hg] Kenyatta Castaneda PA-C Work Phone: [facility] 08-17-2022 12:34-0500 Heart rate 76 /min Kenyatta Castaneda PA-C Work Phone: [facility] 08-17-2022 12:34-0500 Respiratory rate 18 /min Kenyatta Castaneda PA-C Work Phone: [facility] 08-17-2022 12:34-0500 Systolic blood pressure 122 mm[Hg] Kenyatta Castaneda PA-C Work Phone: [facility] 08-11-2022 10:32-0400 Body temperature 97 [degF] Kenyatta Castaneda PA-C Work Phone: [facility] 08-11-2022 10:32-0400 Body weight 127.46 kg Kenyatta Castaneda PA-C Work Phone: [facility] 08-11-2022 10:32-0400 Diastolic blood pressure 88 mm[Hg] Kenyatta Castaneda PA-C Work Phone: [facility] 08-11-2022 10:32-0400 Heart rate 68 /min Kenyattayevgeniy Castaneda PA-C Work Phone: [facility] 08-11-2022 10:32-0400 Respiratory rate 18 /min Kenyatta Castaneda PA-C Work Phone: [facility] 08-11-2022 10:32-0400 Systolic blood pressure 120 mm[Hg] Kenyatta Castaneda PA-C Work Phone: [facility] 08-04-2022 09:13-0400 Body temperature 98.91 [degF] Emma Sheets TAX ACCOUNTANT.CIRCUIT COURT CLERK Work Phone: [facility] 08-04-2022 09:13-0400 Body weight 125.65 kg Emma Sheets APRN.CIRCUIT COURT CLERK Work Phone: [facility] 08-04-2022 09:13-0400 Diastolic blood pressure 72 mm[Hg] Emma Sheets TAX ACCOUNTANT.CIRCUIT COURT CLERK Work Phone: [facility] 08-04-2022 09:13-0400 Heart rate 90 /min Emma Sheets TAX ACCOUNTANT.CIRCUIT COURT CLERK Work Phone: [facility] 08-04-2022 09:13-0400 Respiratory rate 24 /min Emma Sheets TAX ACCOUNTANT.CIRCUIT COURT CLERK Work Phone: [facility] 08-04-2022 09:13-0400 SaO2% (BldA) [Mass fraction] 96 % Emma Sheets TAX ACCOUNTANT.CIRCUIT COURT CLERK Work Phone: [facility] 08-04-2022 09:13-0400 Systolic blood pressure 122 mm[Hg] Emma Sheets TAX ACCOUNTANT.CIRCUIT COURT CLERK Work Phone: [facility] 06-07-2022 08:01-0400 Body weight 134.63 [facility].CIRCUIT COURT CLERK Work Phone: [facility] 06-07-2022 08:01-0400 Diastolic blood pressure 88 mm[Hg] Torres Kupiec TAX ACCOUNTANT.CIRCUIT COURT CLERK Work Phone: [facility] 06-07-2022 08:01-0400 Heart rate 79 /min Torres Kupiec TAX ACCOUNTANT.CIRCUIT COURT CLERK Work Phone: [facility] 06-07-2022 08:01-0400 SaO2% (BldA) [Mass fraction] 95 % Torres Kupiec TAX ACCOUNTANT.CIRCUIT COURT CLERK Work Phone: [facility] 06-07-2022 08:01-0400 Systolic blood pressure 132 mm[Hg] Torres Kupiec TAX ACCOUNTANT.CIRCUIT COURT CLERK Work Phone: [facility] 06-04-2022 09:41-0400 Body height 188.5 cm Humberto Jackson MD Work Phone: [facility] 06-04-2022 09:41-0400 Body temperature 97.2 [degF] Humberto Jackson MD Work Phone: [facility] 06-04-2022 09:41-0400 Body weight 132.45 kg Humberto Jackson MD Work Phone: [facility] 06-04-2022 09:41-0400 Diastolic blood pressure 86 mm[Hg] Humberto Jackson MD Work Phone: [facility] 06-04-2022 09:41-0400 Heart rate 72 /min Humberto Jackson MD Work Phone: [facility] 06-04-2022 09:41-0400 Respiratory rate 18 /min Humberto Jackson MD Work Phone: [facility] 06-04-2022 09:41-0400 Systolic blood pressure 122 mm[Hg] Humberto Jackson MD Work Phone: [facility] 03-04-2022 08:28-0400 Body height 187.2 cm Torres Kupie TAX ACCOUNTANT.CIRCUIT COURT CLERK Work Phone: [facility] 03-04-2022 08:28-0400 Body weight 137.8 [facility].CIRCUIT COURT CLERK Work Phone: [facility] 03-04-2022 08:28-0400 Diastolic blood pressure 97 mm[Hg] [facility] TAX ACCOUNTANT.CIRCUIT COURT CLERK Work Phone: [facility] 03-04-2022 08:28-0400 Heart rate 77 /min [facility] TAX ACCOUNTANT.CIRCUIT COURT CLERK Work Phone: [facility] 03-04-2022 08:28-0400 SaO2% (BldA) [Mass fraction] 94 % Torres Kupie TAX ACCOUNTANT.CIRCUIT COURT CLERK Work Phone: [facility] 03-04-2022 08:28-0400 Systolic blood pressure 148 mm[Hg] Torres Kupiec TAX ACCOUNTANT.CIRCUIT COURT CLERK Work Phone: [facility] Encounters Encounter Date Encounter Type Care Provider Facility Start: 03-10-2025 End: 03-10-2025 Follow-up encounter Kenyatta Castaneda PA-C Work Phone: [facility] Start: 03-10-2025 End: 03-10-2025 Telephone encounter Kenyatta Castaneda PA-C Work Phone: [facility] Comment on above: Results, Lab Start: 03-10-2025 End: 03-10-2025 Patient encounter procedure Nelda Quigley CIRCUIT [address] CLERK Work Phone: General Surgery Comment on above: Family history of co mer cancer (Primary Dx); Anemia, unspecified type Start: 03-10-2025 End: 03-10-2025 ambulatory NELDARYAN QUIGLEY Facility:[facility] Start: 03-07-2025 End: 03-07-2025 Follow-up encounter Kenyatta Castaneda PA-C Work Phone: [facility] Comment on above: Results Start: 03-07-2025 End: 03-07-2025 Telephone encounter Kenyatta Castaneda PA-C Work Phone: [facility] Start: 03-07-2025 End: 03-07-2025 ambulatory KENYATTA CASTANEDA Facility:[facility] Start: 03-06-2025 End: 03-06-2025 ambulatory HUMBERTO JACKSON Facility:[facility] Start: 03-06-2025 End: 03-06-2025 Office outpatient visit 25 minutes Kenyatta Castaneda PA-C Work Phone: [facility] Comment on above: Tachycardia (Primary Dx); Lightheadedness Start: 03-06-2025 End: 03-06-2025 ambulatory HUMBERTO JACKSON Facility:[facility] Start: 02-21-2025 End: 02-21-2025 Patient encounter procedure Vikash Booth MD Work Phone: Orthopedics Comment on above: Adhesive capsulitis of right shoulder Start: 02-21-2025 End: 02-21-2025 ambulatory ELIZABETH SUÁREZ Facility:[facility] Start: 02-18-2025 End: 02-18-2025 Patient encounter procedure [facility] Provider [facility] Department Start: 02-18-2025 End: 02-18-2025 Refill Torres Monaco APRN.CNP Work Phone: Endocrinology Comment on above: Refill Request Start: 02-12-2025 End: 02-12-2025 Telephone encounter Varsha Vaughn APRN.CIRCUIT COURT CLERK Work Phone: [facility] Comment on above: Patient Update ([employer] at[employer] Benefits Investigation) Start: 02-06-2025 End: 02-06-2025 Telemedicine consultation with patient Jana Babcock MD Work Phone: Endocrinology Start: 02-06-2025 End: 02-06-2025 Patient encounter procedure Lissy Bowman MD Work Phone: [facility] Comment on above: Gastroesophageal ref lux disease, unspecified whether esophagitis present (Primary Dx); Class 2 severe obesity with serious comorbidity and body mass index (BMI) of 36.0 to 36.9 in adult, unspecified obesity type (HCC); NAFLD (nonalcoholic fatty liver disease); Esophageal dysphagia; MIKE (obstructive sleep apnea) Start: 02-06-2025 End: 02-06-2025 ambulatory Humberto Jackson MD Work Phone: [facility] Comment on above: Methylphenidate shor tage Pituitary gland enla rged (HCC) (Primary Dx); Gynecomastia, male; Elevated prolactin level; Abnormal finding on MRI of brain; Gynecomastia Start: 01-21-2025 End: 01-21-2025 ambulatory HUMBERTO JACKSON Facility:[facility] Start: 01-21-2025 End: 01-21-2025 Patient encounter procedure Humberto Jackson MD Work Phone: [facility] Comment on above: Bacterial pneumonia (Primary Dx); Gastroesophageal reflux disease without esophagitis; Belching; Attention 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 Start: 01-11-2025 End: 01-11-2025 ambulatory HUMBERTO JACKSON Facility:[facility] Start: 01-10-2025 End: 01-10-2025 Refill Torres Monaco APRN.CIRCUIT COURT CLERK Work Phone: Endocrinology Comment on above: Refill Request Start: 01-08-2025 End: 03-10-2025 Follow-up encounter Elizabeth Suárez MD Work Phone: [facility] [place] Start: 01-06-2025 End: 01-06-2025 Office outpatient new 45 minutes Ja Mckeon MD Work Phone: [facility] Comment on above: Gynecomastia, male ( Primary Dx); Abnormal brain MRI Start: 01-06-2025 End: 01-06-2025 ambulatory JA MCKEON Facility:[facility] Start: 01-04-2025 [facility] Start: 01-04-2025 End: 01-04-2025 Subsequent hospital visit by physician Kiesha [facility] (1.5t) Radiology Comment on above: Acute pain of right shoulder [M25.511] Start: 12-30-2024 End: 12-30-2024 Follow-up encounter Humberto Jackson MD Work Phone: [facility] Start: 12-30-2024 End: 12-30-2024 Subsequent hospital visit by physician Jeffry [facility] Work Phone: Radiology Comment on above: Abnormal lung sounds [R09.89] Start: 12-30-2024 End: 12-30-2024 ambulatory HUMBERTO JACKSON Facility:[facility] Start: 12-30-2024 End: 12-30-2024 Ophthalmic examination and evaluation Humberto Jackson MD Work Phone: [facility] Start: 12-30-2024 End: 12-30-2024 Patient encounter procedure Humberto Jackson MD Work Phone: [facility] Comment on above: Well adult exam ([facility] Dx); Type 2 diabetes mellitus without complication, without long-term current use of insulin (HCC); Diabetic eye exam (HCC); Dyslipidemia; GERD without esophagitis; Migraine without aura and without status migrainosus, not intractable; Attention 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; Agitation; ISABELLA (generalized anxiety disorder); Major depressive disorder with single episode, in partial remission (HCC); Mood disorder (HCC); Obesity, Class II, BMI 35-39.9; Obstructive sleep apnea syndrome; Primary insomnia; Fatty liver; Gynecomastia, male; Abnormal finding on MRI of brain; Anemia, unspecified type; Abnormal lung sounds; Callus of foot; SOB (shortness of breath) Start: 12-30-2024 End: 12-30-2024 Patient encounter status Humberto Jackson MD Work Phone: [facility] Work Phone: Start: 12-24-2024 End: 12-24-2024 Telephone encounter Ja Mckeon MD Work Phone: [facility] Start: 12-23-2024 End: 12-23-2024 Telephone encounter Humberto Jackson MD Work Phone: [facility] Comment on above: Appointment Start: 12-20-2024 End: 12-20-2024 Telephone encounter Ja Mckeon MD Work Phone: [facility] Start: 12-20-2024 End: 12-20-2024 ambulatory HUMBERTO JACKSON Facility:[facility] Start: 12-20-2024 End: 12-20-2024 Patient encounter procedure Humberto Jackson MD Work Phone: [facility] Comment on above: Gynecomastia (Primar y Dx); Acute pain of right shoulder; Elevated prolactin level; Pituitary adenoma (HCC) Start: 12-16-2024 End: 12-16-2024 E-mail encounter from caregiver Tam Dat KUMAR [facility] Start: 12-16-2024 End: 12-16-2024 Patient encounter procedure Tam Daugherty MA [facility] Comment on above: results/appointments Start: 2024 End: 12-17-2024 Telephone encounter Karthik Nolan MD Work Phone: [facility] Start: 12-12-2024 End: 12-12-2024 Telephone encounter Self Nisha Kang [facility] Comment on above: Triage (WQ) Start: 12-11-2024 End: 12-16-2024 Follow-up encounter Humberto Jackson MD Work Phone: [facility] Comment on above: Gynecomastia, male ( Primary Dx); Elevated prolactin level; Abnormal finding on MRI of brain Start: 12-11-2024 End: 12-11-2024 ambulatory HUMBERTO JACKSON Facility:[facility] Start: 12-11-2024 End: 12-11-2024 Subsequent hospital visit by physician [facility] Kevin (I-Stat/1.5t) Radiology Comment on above: Gynecomastia, male [ N62] Start: 12-06-2024 End: 12-09-2024 ambulatory Humberto Jackson MD Work Phone: [facility] Comment on above: Methylphenidate Start: 12-03-2024 End: 12-04-2024 Follow-up encounter Humberto Jackson MD Work Phone: Family [facility] Comment on above: Gynecomastia, male ( Primary Dx) Start: 12-03-2024 End: 12-03-2024 ambulatory HUMBERTO JACKSON Facility:[facility] Start: 12-03-2024 End: 12-03-2024 Subsequent hospital visit by physician [facility] Work Phone: Radiology Comment on above: Subareolar mass of r ight breast [N63.41] Start: 11-26-2024 End: 11-27-2024 Follow-up encounter Humberto Jackson MD Work Phone: [facility] Comment on above: Gynecomastia, male ( Primary Dx); Low testosterone in male; Elevated prolactin level; Medication management Start: 11-22-2024 End: 11-22-2024 Office outpatient visit 25 minutes Humberto Jackson MD Work Phone: Family [facility] Comment on above: Subareolar mass of r ight breast (Primary Dx) Start: 11-22-2024 End: 11-22-2024 ambulatory HUMBERTO JACKSON Facility:[facility] Start: 11-20-2024 End: 11-20-2024 E-mail encounter from caregiver Tam Daugherty MA [facility] Start: 11-20-2024 End: 11-20-2024 Patient encounter procedure Tam Daugherty MA [facility] Comment on above: Appointment Start: 11-18-2024 End: 11-18-2024 Refill Humberto Jackson MD Work Phone: Family [facility] Comment on above: Refill Request Start: 11-04-2024 End: 11-05-[address] Mon[address] CLERK Work Phone: Endocrinology Comment on above: Refill Request Start: 10-25-2024 End: 10-25-2024 ambulatory HUMBERTO JACKSON Facility:[facility] Start: 10-25-2024 End: 10-25-2024 Subsequent hospital visit by physician [facility] Work Phone: Radiology Comment on above: Elevated alkaline ph osphatase level [R74.8] Start: 10-23-2024 End: 10-23-2024 ambulatory Humberto Jackson MD Work Phone: [facility] Comment on above: Gerd Start: 10-16-2024 End: 10-28-2024 Telephone encounter Humberto Jackson MD Work Phone: [facility] Comment on above: Results Start: 10-14-2024 End: 10-14-2024 ambulatory HUMBERTO JACKSON Facility:[facility] Start: 10-10-2024 End: 10-11-2024 ambulatory Humberto Jackson MD Work Phone: [facility] Comment on above: Reflux Start: 09-17-2024 End: 09-17-2024 ambulatory HUMBERTO JACKSON Facility:[facility] Start: 09-17-2024 End: 09-17-2024 Patient encounter procedure Humberto Jackson MD Work Phone: [facility] Comment on above: Attention deficit di sorder (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 (Primary Dx); Mood disorder (HCC); Major depressive disorder with single episode, in partial remission (HCC); Agitation; Dyslipidemia Start: 08-26-2024 End: 08-26-2024 ambulatory Storm [facility]el [facility] Comment on above: Acute pain of right shoulder (Primary Dx) Start: 08-19-2024 End: 08-19-2024 Patient encounter procedure Humberto Jackson MD Work Phone: [facility] Comment on above: Attention deficit di sorder (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 (Primary Dx); Major depressive disorder with single episode, in partial remission (HCC); Medication management Start: 08-19-2024 End: 08-19-2024 ambulatory HUMBERTO JACKSON Facility:[facility] Start: 08-17-2024 End: 08-19-2024 Refill Kenyatta Castaneda PA-C Work Phone: [facility] Comment on above: Refill Request Start: 08-05-2024 End: 08-05-2024 ambulatory Storm Golias PT Work Phone: [facility] Comment on above: Acute pain of right shoulder (Primary Dx) Start: 07-22-2024 End: 07-22-2024 ambulatory Storm Golias PT Work Phone: [facility] Comment on above: Acute pain of right shoulder (Primary Dx) Start: 06-28-2024 End: 06-28-2024 ambulatory Ruby Cho [employer]BILE EQUIPMENT SERVICER Work Phone: [facility] Comment on above: Acute pain of right shoulder (Primary Dx) Start: 06-16-2024 End: 06-17-2024 Refill Humberto Jackson MD Work Phone: [facility] Comment on above: Refill Request Start: 06-12-2024 End: 06-12-2024 ambulatory Storm Golias PT Work Phone: [facility] Comment on above: Acute pain of right shoulder Start: 06-06-2024 End: 06-06-2024 Patient encounter procedure Dominik Kelley APRN.CIRCUIT COURT CLERK Work Phone: [facility] Comment on above: Dyslipidemia (Primar y Dx); Type 2 diabetes mellitus without complication, without long-term current use of insulin (HCC); Multiple thyroid nodules; Medication management; GERD without esophagitis Start: 06-06-2024 End: 06-06-2024 ambulatory HUMBERTO JACKSON Facility:[facility] Start: 05-27-2024 End: 05-28-2024 Telephone encounter Dominik Kelley APRN.CIRCUIT COURT CLERK Work Phone: [facility] Comment on above: Results Start: 05-21-2024 End: 05-21-2024 Subsequent hospital visit by physician Xr [facility] Work Phone: Radiology Comment on above: Acute pain of right shoulder [M25.511] Start: 05-21-2024 End: 05-21-2024 ambulatory HUMBERTO JACKSON Facility:[facility] Start: 05-21-2024 End: 05-21-2024 Patient encounter procedure Dominik Kelley APRN.CIRCUIT COURT CLERK Work Phone: [facility] Comment on above: Acute pain of right shoulder (Primary Dx); Type 2 diabetes mellitus without complication, without long-term current use of insulin (HCC); Dyslipidemia; Multiple thyroid nodules; Medication management Start: 05-21-2024 End: 05-21-2024 ambulatory Nurse Intm/Famp Triage [facility] Work Phone: Nurse Phone Triage Comment on above: Nurse Triage Call Arm Pain Start: 05-13-2024 Refill Humberto payne MD Work Phone: [facility] Comment on above: Refill Request Start: 04-02-2024 ambulatory Humberto Jackson Facility :[facility] Start: 03-13-2024 End: 03-13-2024 ambulatory Humberto Jackson Facility:[facility] Start: 03-12-2024 Chart abstracting Humberto san MD Work Phone: [facility] Comment on above: Outside Procedure Start: 03-11-2024 Chart abstracting Tam Daugherty MA [facility] Comment on above: Procedure Start: 03-10-2024 ambulatory Humberto Jackson Facility :[facility] Start: 03-10-2024 End: 03-10-2024 Emergency department patient visit Braeden Reid Facility:[facility] Start: 02-28-2024 Telephone encounter Jacob le MD Work Phone: Endocrinology [facility] Comment on above: Outside Lab Results (Afirma Results) Start: 02-23-2024 Refill Humberto payne MD Work Phone: [facility] Comment on above: Refill Request Start: 02-13-2024 Telephone encounter Jacob le MD Work Phone: Endocrinology [facility] Comment on above: Results (Afirma 01/30) Start: 02-02-2024 ambulatory Jacob alonzo MD Work Phone: Endocrinology Comment on above: Biopsy Start: 02-02-2024 E-mail encounter fro m caregiver Jacob Prado Jr., MD Work Phone: Endocrinology Start: 01-31-2024 End: 01-31-2024 Orders Only Jacob Prado MD Work Phone: Endocrinology Comment on above: Thyroid nodule (Prim cherise Dx) Non-toxic nodular go iter (Primary Dx); Multiple thyroid nodules Start: 01-24-2024 Telephone encounter Torres tian TAX ACCOUNTANT.CIRCUIT COURT CLERK Work Phone: Endocrinology Comment on above: Results; Appointment Start: 01-23-2024 Refill Humberto payne MD Work Phone: [facility] Comment on above: Refill Request Start: 01-19-2024 ambulatory TORRES MONACO Facilit y:[facility] Start: 01-19-2024 End: 01-19-2024 Subsequent hospital visit by physician [facility] Work Phone: Radiology Comment on above: Multiple thyroid nod ules [E04.2] Start: 01-17-2024 Refill Torres lentz TAX ACCOUNTANT.CIRCUIT COURT CLERK Work Phone: Endocrinology Comment on above: Med Change Request Start: 01-17-2024 End: 01-17-2024 Patient encounter procedure Torres Monaco TAX ACCOUNTANT.CIRCUIT COURT CLERK Work Phone: Endocrinology Comment on above: Type 2 diabetes bernardo itus without complication, without long- term current use of insulin (HCC) (Primary Dx); Dyslipidemia; Multiple thyroid nodules; Obesity, Class II, BMI 35-39.9 Start: 12-15-2023 ambulatory Humberto payne MD Work Phone: [facility] Comment on above: Ritalin Start: 12-14-2023 ambulatory Humberto payne MD Work Phone: [facility] Comment on above: Medication Start: 12-07-2023 Telephone encounter Humberto Jackson MD Work Phone: [facility] Comment on above: Results Start: 12-06-2023 End: 12-06-2023 Ophthalmic examination and evaluation Humberto Jackson MD Work Phone: [facility] Work Phone: Start: 12-06-2023 End: 12-06-2023 Patient encounter procedure Humberto Jackson MD Work Phone: [facility] Comment on above: Well adult exam (Dorcas kayla Dx); Type 2 diabetes mellitus without complication, without long-term current use of insulin (HCC); Diabetic eye exam (HCC); Dyslipidemia; GERD without esophagitis; Migraine without aura and without status migrainosus, not intractable; Mild intermittent extrinsic asthma without complication; Multiple thyroid nodules; Major depressive disorder with single episode, in partial remission (HCC); Attention 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; Mood disorder (HCC); ISABELLA (generalized anxiety disorder); Agitation; Primary insomnia; Obesity, Class II, BMI 35-39.9; History of COVID-19; Need for vaccination; Medication management; Encounter for immunization Start: 12-06-2023 End: 12-06-2023 Patient encounter status Humberto Jackson MD Work Phone: [facility] Work Phone: Start: 11-29-2023 E-mail encounter sybil m caregiver Tam Daugherty MA [facility] Start: 11-29-2023 Patient encounter procedure Tam Daugherty MA Family [facility] Comment on above: appointment Start: 10-27-2023 End: 10-27-2023 Subsequent hospital visit by physician Cristofer Bland110 X-Ray 1 [facility] Comment on above: Right foot pain Start: 10-27-2023 End: 10-27-[facility] Start: 10-03-2023 Telephone encounter Torres tian TAX ACCOUNTANT.CIRCUIT COURT CLERK Work Phone: Endocrinology Comment on above: PA--FREESTYLE EVERT 3 SENSOR (RENEWAL) Start: 09-06-2023 Telephone encounter Torres tian TAX ACCOUNTANT.CIRCUIT COURT CLERK Work Phone: Endocrinology Comment on above: PA--MOUNJARO 2.5 MG Start: 08-23-2023 Refill oTrres lentz TAX ACCOUNTANT.CIRCUIT COURT CLERK Work Phone: Endocrinology Comment on above: Refill Request Start: 08-14-2023 Telephone encounter Dominik quintana TAX ACCOUNTANT.CIRCUIT COURT CLERK Work Phone: [facility] Comment on above: Results Start: 07-15-2023 ambulatory Torres lentz TAX ACCOUNTANT.CIRCUIT COURT CLERK Work Phone: Endocrinology Comment on above: Ozempic Start: 06-04-2023 Refill Torres lentz TAX ACCOUNTANT.CIRCUIT COURT CLERK Work Phone: Endocrinology Comment on above: Refill Request Start: 04-25-2023 End: 04-25-2023 ambulatory Humberto Jackson Facility:[facility] Start: 04-15-2023 Non-patient / Non-visit Dr. Leo Jackson Work Phone: [facility] Start: 04-14-2023 End: 04-15-2023 Evaluation and management of inpatient Dr. Humberto Jackson Work Phone: [facility] 3 Work Phone: Start: 04-14-2023 End: 04-15-[address] Humberto Jackson Work Phone: [facility] Work Phone: Start: 04-14-2023 Admission to [facility]. Humberto Jackson Work Phone: [facility] Work Phone: Start: 04-14-2023 Non-patient / Non-visit Dr. Leo Jackson Work Phone: [facility] Start: 04-14-2023 End: 04-15-2023 ambulatory Humberto Jackson MD Work Phone: [facility] Comment on above: Large lump under my skin Start: 04-14-2023 End: 04-14-2023 Patient encounter procedure Dominik Kelley APRN.CIRCUIT COURT CLERK Work Phone: [facility] Comment on above: Abscess of buttock ( Primary Dx) Start: 04-10-2023 End: 04-10-2023 Patient encounter procedure Kenyatta Castaneda PA-C Work Phone: [facility] Comment on above: Migraine without aur a and without status migrainosus, not intractable (Primary Dx); Type 2 diabetes mellitus without complication, without long-term current use of insulin (HCC); Dyslipidemia; Attention 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; Mood disorder (HCC); ISABELLA (generalized anxiety disorder) Start: 03-27-2023 Refill Dominik olivia TAX ACCOUNTANT.CIRCUIT COURT CLERK Work Phone: [facility] Comment on above: Refill Request Start: 03-14-2023 Refill Torres lentz TAX ACCOUNTANT.CIRCUIT COURT CLERK Work Phone: Endocrinology Comment on above: Refill Request Start: 03-14-2023 Refill Torres lentz TAX ACCOUNTANT.CIRCUIT COURT CLERK Work Phone: Endocrinology Comment on above: Refill Request Start: 01-27-2023 End: 01-27-2023 Patient encounter procedure Torres Monaco TAX ACCOUNTANT.CIRCUIT COURT CLERK Work Phone: Endocrinology Comment on above: Type 2 diabetes bernardo itus without complication, without long- term current use of insulin (HCC) (Primary Dx); Dyslipidemia; Multiple thyroid nodules; Obesity, Class II, BMI 35-39.9 Start: 01-09-2023 End: 01-09-2023 Patient encounter procedure Dominik Kelley APRN.CIRCUIT COURT CLERK Work Phone: [facility] Comment on above: Attention deficit di sorder (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 Start: 12-07-2022 Telephone encounter Humberto Jackson MD Work Phone: [facility] Comment on above: Results Start: 12-07-2022 End: 12-07-2022 Ophthalmic examination and evaluation Humberto Jackson MD Work Phone: [facility] Start: 12-07-2022 End: 12-07-2022 Patient encounter procedure Humberto Jackson MD Work Phone: [facility] Comment on above: Type 2 diabetes bernardo itus without complication, without long- term current use of insulin (HCC) (Primary Dx); Dyslipidemia; Diabetic eye exam (HCC); GERD without esophagitis; Migraine without aura and without status migrainosus, not intractable; Mild intermittent extrinsic asthma without complication; Mood disorder (HCC); Agitation; Major depressive disorder with single episode, in partial remission (HCC); ISABELLA (generalized anxiety disorder); Obstructive sleep apnea syndrome; Primary insomnia; Attention 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; Need for vaccination; Medication management Start: 10-28-2022 Telephone encounter Torres tian APRN.CNP Work Phone: Endocrinology Comment on above: Insurance Authorizat ion ([employer]) Start: 08-30-2022 End: 08-30-2022 Subsequent hospital visit by physician Johanna Bliss MD Work Phone: Ambulatory Surgery Comment on above: Family history of co mer cancer in father [Z80.0] Start: 08-17-2022 End: 08-17-2022 Patient encounter procedure Kenyatta Castaneda PA-C Work Phone: [facility] Comment on above: Abscess of buttock ( Primary Dx); Pilonidal cyst Start: 08-11-2022 End: 08-11-2022 Patient encounter procedure Kenyatta Castaneda PA-C Work Phone: [facility] Comment on above: Abscess of buttock ( Primary Dx); Encounter for immunization Start: 08-04-2022 ambulatory Humberto payne MD Work Phone: [facility] Comment on above: Pain management Start: 08-04-2022 Follow-up encounter Humberto Jackson MD Work Phone: [facility] Comment on above: Need to schedule [facility] Start: 08-04-2022 End: 08-04-2022 Patient encounter procedure Emma Sheets APRN.CIRCUIT COURT CLERK Work Phone: [facility] Comment on above: Cellulitis of skin ( Primary Dx); Abscess Start: 07-20-2022 End: 07-20-2022 Nursing evaluation of patient and report Mi Nurse Work Phone: [facility] Comment on above: Need for vaccination (Primary Dx) Start: 06-10-2022 End: 06-10-2022 Nursing evaluation of patient and report Nv Nurse Work Phone: [facility] Comment on above: Need for vaccination (Primary Dx) Start: 06-07-2022 End: 06-07-2022 Patient encounter procedure Torres Monaco APRN.CIRCUIT COURT CLERK Work Phone: Endocrinology Comment on above: Type 2 diabetes bernardo itus without complication, without long- term current use of insulin (HCC) (Primary Dx); Dyslipidemia; Class 2 severe obesity with serious comorbidity and body mass index (BMI) of 37.0 to 37.9 in adult, unspecified obesity type (HCC) Start: 06-05-2022 Telephone encounter Humberto Jackson MD Work Phone: [facility] Comment on above: Results Start: 06-04-2022 End: 06-04-2022 Ophthalmic examination and evaluation Humberto Jackson MD Work Phone: [facility] Start: 06-04-2022 End: 06-04-2022 Patient encounter procedure Humberto Jackson MD Work Phone: [facility] Comment on above: Type 2 diabetes bernardo itus without complication, without long- term current use of insulin (HCC) (Primary Dx); Well adult exam; Diabetic eye exam (HCC); Dyslipidemia; Migraine without aura and without status migrainosus, not intractable; GERD without esophagitis; ISABELLA (generalized anxiety disorder); Major depressive disorder with single episode, in partial remission (HCC); Mood disorder (HCC); Obstructive sleep apnea syndrome; Primary insomnia; Allergic rhinitis, unspecified seasonality, unspecified trigger; Need for hepatitis B screening test; Medication management Start: 06-04-2022 End: 06-04-2022 Patient encounter status Humberto Jackson MD Work Phone: [facility] Start: 04-27-2022 Refill Kenyatta Livingston on PA-C Work Phone: [facility] Comment on above: Refill Request Ozempic Start: 03-04-2022 End: 03-04-2022 Patient encounter procedure Torres Monaco TAX ACCOUNTANT.CIRCUIT COURT CLERK Work Phone: Endocrinology Comment on above: Type 2 diabetes bernardo itus without complication, without long- term current use of insulin (HCC) (Primary Dx); Dyslipidemia; Class 2 severe obesity with serious comorbidity and body mass index (BMI) of 39.0 to 39.9 in adult, unspecified obesity type (HCC) Start: 01-31-2022 Refill Torres lentz TAX ACCOUNTANT.CIRCUIT COURT CLERK Work Phone: Endocrinology Comment on above: Refill Request Start: 01-05-2022 Refill Humberto payne MD Work Phone: [facility] Comment on above: Refill Request Start: 12-03-2021 Ophthalmic examinati on and evaluation Humberto Jackson MD Work Phone: [facility] Start: 10-15-2021 End: 10-15-2021 Subsequent hospital visit by physician Xr [facility] Work Phone: Radiology Comment on above: Cough [R05.9] Start: 12-22-2020 Patient encounter status Tierney Jackson MD Work Phone: [facility] Work Phone: Start: 10-20-2020 End: 10-20-2020 Subsequent hospital visit by physician Xr [facility] Thomas Work Phone: Radiology Comment on above: Pain in both knees, unspecified chronicity [M25.561, M25.562] Start: 10-09-[address] [facility] Start: 05-03-2017 Ambulatory Alejandro Calderon [facility] Procedures Date Procedure Procedure Detail Performing Clinician Start: 12-30-2024 Radiologic exam ches t 2 views Humberto Jackson MD Work Phone: Start: 12-11-2024 Mri brain brain stem w/o w/contrast material Humberto Jackson MD Work Phone: Start: 12-03-2024 Us breast uni real t ariadna with image limited Humberto Jackson MD Work Phone: Start: 12-03-2024 Digital breast tomosynthesis bilateral Humberto Jackson MD Work Phone: Start: 05-21-2024 Radex shoulder compl ete minimum 2 views Dominik Kelley TAX ACCOUNTANT.CIRCUIT COURT CLERK Work Phone: Start: 01-31-2024 Us soft tissue head & neck real time imge rafael Prado MD Work Phone: Start: 01-17-2024 Hemoglobin A1c/Hemoglobin.total [facility] TAX [facility]OUNTANT.CIRCUIT COURT CLERK Work Phone: Start: 12-06-2023 Appticles COVI D-19 VACCINE (2022- SEASON) AGE 12+ YR Humberto Jackson MD Work Phone: Start: 10-27-2023 XR FOOT RIGHT 3+ VIEWS [facility] Start: 10-27-2023 Radex foot complete minimum 3 views Stanton Peters DO Work Phone: Start: 04-14-2023 Incision and drainag e of perirectal abscess Dr. Humberto Jackson Work Phone: Start: 04-14-2023 CT of pelvis with contrast Dr. Humberto Jackson Work Phone: Start: 04-14-2023 Investigation of transfusion reaction Dr. Humberto Jackson Work Phone: Start: 01-27-2023 Hemoglobin A1c/Hemoglobin.total in Blood Torres Kupiec TAX ACCOUNTANT.CIRCUIT COURT CLERK Work Phone: Start: 12-07-2022 Drug tst prsmv instr mnt chem analyzers pr date Humberto Jackson MD Work Phone: Start: 08-30-2022 Gluc bld gluc mntr d ev cleared fda spec home use Johanna Bliss MD Work Phone: Start: 08-30-2022 Colonoscopy flx dx w /collj spec when pfrmd Johanna Bliss MD Work Phone: Start: 08-30-2022 Colonoscopy Torres Sullivan kimi TAX ACCOUNTANT.CIRCUIT COURT CLERK Work Phone: Start: 08-11-2022 INFLUENZA VACCINE QUADRIVALENT 6 MO - 64 YRS IM Kenyatta Castaneda PA-C Work Phone: Start: 08-11-2022 PFIZER-BIONTECH COVI D-19 BIVALENT BOOSTER VACCINE, AGE 12+ YR Kenyatta Castaneda PA-C Work Phone: Start: 03-04-2022 Hemoglobin A1c/Hemoglobin.total in Blood Torres Monaco TAX ACCOUNTANT.CIRCUIT COURT CLERK Work Phone: Start: 10-15-2021 Radiologic exam ches t 2 views Kenyatta Castaneda PA-C Work Phone: Start: 10-20-2020 Radiologic exam knee complete 4/more views Alejandro Acosta MD Work Phone: Start: 08-16-2017 Colonoscopy Humberto san MD Work Phone: History of appendectomy Hx of appendectom y Dr. Humberto Jackson Work Phone: History of tonsillectomy Hx of tonsillect sara Dr. Humberto Jackson Work Phone: Plan of Treatment Date Care Activity Detail Author Start: 12-14-2039 PNEUMOCOCCAL (3 - PPSV23 if available, else PCV20) PNEUMOCOCCAL (3 - PPSV23 if available, else PCV20) [facility] Start: 12-14-2039 PNEUMOCOCCAL (3 - PPSV23 or PCV20) PNEUMOCOCCAL (3 - PPSV23 or PCV20) [facility] Start: 12-14-2039 Pneumococcal vaccination [facility] Start: 04-13-2031 DTaP/Tdap/Td Vaccines (3 - Td or Tdap) DTaP/Tdap/Td Vaccines (3 - Td or Tdap) [facility] Start: 04-13-2031 Urine microalbumin profile [place] [facility] Start: 12-06-2028 Pneumococcal vaccination Pneumococcal Vaccine (3 of 3 - PCV20 or PCV21) [facility] Start: 12-06-2028 Pneumococcal Vaccine: 50+ (3 of 3 - PCV20 or PCV21) Pneumococcal Vaccine: 50+ (3 of 3 - PCV20 or PCV21) [facility] Start: 08-30-2027 Colonoscopy COLONOSCOPY [facility] Start: 08-30-2027 COLORECTAL CANCER SCREENING COLORECTAL CANCER SCREENING [facility] Start: 08-30-2027 Screening for malignant neoplasm of colon [facility] Start: 03-06-2026 Annual PCP Team Chronic Disease Visit Annual PCP Team Chronic Disease Visit [facility] Start: 01-21-2026 Annual PCP Team Chronic Disease Visit Annual PCP Team Chronic Disease Visit [facility] Start: 12-30-2025 Annual PCP Team Chronic Disease Visit Annual PCP Team Chronic Disease Visit [facility] Start: 12-30-2025 Diabetic foot examination Diabetic Foot Exam [facility] Start: 12-30-2025 Shingrix Vaccine (1 of 2) Shingrix Vaccine (1 of 2) [facility] Comment on above: Postponed from 2024 (Declined at t his time) Start: 12-20-2025 Annual PCP Team Chronic Disease Visit Annual PCP Team Chronic Disease Visit [facility] Start: 12-20-2025 Hepatitis B surface antibody level LDL Cholesterol [facility] Start: 11-22-2025 Annual PCP Team Chronic Disease Visit Annual PCP Team Chronic Disease Visit [facility] Start: 10-14-2025 Annual PCP Team Chronic Disease Visit Annual PCP Team Chronic Disease Visit [facility] Start: 10-14-2025 Hepatitis B surface antibody level LDL Cholesterol [facility] Start: 09-17-2025 Annual PCP Team Chronic Disease Visit Annual PCP Team Chronic Disease Visit [facility] Start: 08-19-2025 Annual PCP Team Chronic Disease Visit Annual PCP Team Chronic Disease Visit [facility] Start: 07-03-2025 End: 07-03-2025 Patient encounter procedure Family Medicine [place] Comment on above: 6 month follow up follow up after MRI done 06/30 Start: 06-30-2025 End: 06-30-2025 Patient encounter procedure 06/30/2025 8:00 AM EDT Appointment Radiology [address] [place] [address] MRI PITUITARY WO/W IVCON Radiology Comment on above: MRI PITUITARY WO/W IVCON Start: 06-20-2025 End: 09-19-2025 CBC W Auto Differential panel - Blood COMPLETE BLOOD COUNT AND DIFFERENTIAL Lab Routine Type 2 diabetes mellitus without complication, without long-term current use of insulin (HCC) Anemia, unspecified type Expected: 06/20/2025, Expires: 09/19/[address] [facility] Comment on above: Expected: 06/20/2025, Expires: Start: 06-20-2025 End: 09-19-2025 Hepatic function 2000 panel - Serum or Plasma HEPATIC FUNCTION PNL Lab Routine Type 2 diabetes mellitus without complication, without long-term current use of insulin (HCC) Dyslipidemia Fatty liver Expected: 06/20/2025, Expires: 09/19/[address] [facility] Comment on above: Expected: 06/20/2025, Expires: Start: 06-20-2025 End: 09-19-2025 LIPID PANEL, NONFASTING LIPID PANEL, NONFASTING Lab Routine Type 2 diabetes mellitus without complication, without long-term current use of insulin (HCC) Dyslipidemia Fatty liver Expected: 06/20/2025, Expires: 09/19/[address] [facility] Comment on above: Expected: 06/20/2025, Expires: Start: 06-06-2025 Annual PCP Team Chronic Disease Visit Annual PCP Team Chronic Disease Visit [facility] Start: 05-21-2025 Annual PCP Team Chronic Disease Visit Annual PCP Team Chronic Disease Visit [facility] Start: 05-21-2025 Hepatitis B surface antibody level LDL Cholesterol [facility] Start: 04-30-2025 End: 04-30-2025 Patient encounter procedure 04/30/2025 11:30 AM EDT Office Visit Endocrinology [address] [address] Torres Monaco APRN.CIRCUIT COURT CLERK [address] [address] follow up Endocrinology Comment on above: follow up Start: 04-17-2025 End: 04-17-2025 Patient encounter procedure 04/17/2025 12:30 PM EDT Office [place] [address] Tachycardia [R00.0]; Lightheadedness [R42] Vasculary Surgery Comment on above: Tachycardia [R00.0]; Lightheadedness [R4 2] Start: 04-17-2025 End: 04-17-2025 Patient encounter procedure 04/17/2025 8:30 AM EDT Office Visit [facility] [address] [place], [place] [id number] Lissy Bowman MD [address] [facility] [address] [place] [address] HBC-f/u-UGI, EGD w/Patino & Mano [facility] Comment on above: HBC-f/u-UGI, EGD w/Patino & Mano Start: 04-04-2025 End: 02-06-2026 EGD - THERAPEUTIC, EUS, OR TUBE INTERVENTIONS EGD - THERAPEUTIC, EUS, OR TUBE INTERVENTIONS Endoscopy Routine Gastroesophageal reflux disease, unspecified whether esophagitis present Expected: 04/04/2025, Expires: 02/06/[address] [facility] Comment on above: Expected: 04/04/2025, Expires: Start: 04-04-2025 End: 04-04-2025 Patient encounter procedure 04/04/2025 10:00 AM EDT Appointment [facility] [address] [place] [address] Lissy Bowman MD [address] [facility] [address] [place] [address] [facility] Start: 04-04-2025 End: 04-04-2025 Admission to same day surgery center 04/04/2025 9:00 AM EDT - 04/04/2025 10:00 AM EDT Surgery [facility] [address] [place] [address] Lissy Bowman MD [address] [facility] [address] [place] [address] ESOPHAGEAL MANOMETRY CRISTO RAYMOND Comment on above: ESOPHAGEAL MANOMETRY Start: 04-04-2025 End: 04-04-2025 Esophageal motility study w/interp&rpt ESOPHAGEAL MANOMETRY Gastroesophageal reflux disease, unspecified whether esophagitis present Esophageal dysphagia 04/04/2025 9:00 AM EDT [facility] Start: 04-04-2025 Subsequent hospital visit by physician C[facility]STO RAYMOND Comment on above: Gastroesophageal reflux disease, unspeci fied whether esophagitis present [K21.9], Esophageal dysphagia [R13.19] Start: 04-02-2025 End: 04-02-2025 Patient encounter procedure 04/02/2025 3:25 PM EDT Appointment [facility] Endoscopy [address] [place] [address] Johanna Bliss MD [address] [facility] [place] [phone] [facility] Endoscopy Start: 03-27-2025 End: 03-27-2025 Patient encounter procedure 03/27/2025 8:00 AM EDT Appointment Radiology [address] [place] [address] Gastroesophageal reflux disease, unspecified whether esophagitis present [K21.9] Radiology Comment on above: Gastroesophageal reflux disease, unspeci fied whether esophagitis present [K21.9] Start: 03-22-2025 Hemoglobin A1c measurement HbA1C [facility] Start: 03-20-2025 End: 03-20-2025 Patient encounter procedure 03/20/2025 8:00 AM EDT Office Visit Cardiology [address] [place], [place] [id number] Tachycardia [R00.0]; Lightheadedness [R42] Cardiology Comment on above: Tachycardia [R00.0]; Lightheadedness [R4 2] Start: 03-10-2025 End: 06-09-2025 CBC W Auto Differential panel - Blood COMPLETE BLOOD COUNT AND DIFFERENTIAL Lab Routine Iron deficiency anemia, unspecified iron deficiency anemia type Expected: 03/10/2025, Expires: 06/09/[address] [facility] Work Phone: Comment on above: Expected: 03/10/2025, Expires: Start: 03-10-2025 End: 06-09-2025 Iron and Iron binding capacity panel - Serum or Plasma IRON AND TIBC Lab Routine Iron deficiency anemia, unspecified iron deficiency anemia type Expected: 03/10/2025, Expires: 06/09/[address] [facility] Comment on above: Expected: 03/10/2025, Expires: Start: 03-10-2025 End: 03-10-2025 Patient encounter procedure 03/10/2025 8:30 AM EDT Office Visit General Surgery [address] [place], [place] [id number] Nelda Quigley APRN.CIRCUIT COURT CLERK [address] [facility] [address] [place], [place] [id number] Anemia, unspecified type. Hgb 9.2 Last colonoscopy 08/30. [facility] General Surgery Comment on above: Anemia, unspecified type. Hgb 9.2 Last c olonoscopy 08/30. [facility] Start: 03-06-2025 End: 06-05-2025 Basic metabolic 2000 panel - Serum or Plasma [facility] Comment on above: Expected: 03/06/2025, Expires: Start: 03-06-2025 End: 06-05-2025 CBC W Auto Differential panel - Blood [facility] Comment on above: Expected: 03/06/2025, Expires: Start: 03-06-2025 End: 06-05-2025 Thyrotropin [Units/volume] in Serum or Plasma [facility] Comment on above: Expected: 03/06/2025, Expires: Start: 02-26-2025 End: 02-26-2025 Patient encounter procedure 02/26/2025 9:30 AM EDT OT/PT/Speech Visit [facility] Outpatient Physical Therapy [address] [place] [address] Dat Zhang, PT [address] [place] [address] Adhesive capsulitis of right shoulder [M75.01] [facility] Physical Therapy Comment on above: Adhesive capsulitis of right shoulder [M 75.01] Start: 02-22-2025 Glaucoma screening Dilated Retinal Exam [facility] Start: 02-21-2025 End: 02-21-2025 Patient encounter procedure 02/21/2025 1:30 PM EDT Office Visit Orthopedics [address] [facility] [address] [place] [address] Vikash Booth MD [address] [facility] [facility] [address] [place] [address] Adhesive capsulitis of right shoulder Orthopedics Comment on above: Adhesive capsulitis of right shoulder Start: 02-17-2025 End: 02-17-2025 Patient encounter procedure Orthopaedics Comment on above: Adhesive capsulitis of right shoulder [M 75.01] Adhesive capsulitis of right shoulder Start: 02-06-2025 End: 02-06-2025 ambulatory 02/06/2025 2:30 PM EDT [facility] Endocrinology [address] [place] [address] Jana Babcock MD [address] [place] [address] Time Frame: Next available Endocrinology Comment on above: Time Frame: Next available Start: 01-30-2025 End: 05-01-2025 CBC W Auto Differential panel - Blood COMPLETE BLOOD COUNT AND DIFFERENTIAL Lab Routine Anemia, unspecified type Expected: 01/30/2025, Expires: 05/01/[address] [facility] Comment on above: Expected: 01/30/2025, Expires: Start: 01-30-2025 End: 05-01-2025 Cobalamin (Vitamin B12) [Mass/volume] in Serum or Plasma VITAMIN B12 Lab Routine Anemia, unspecified type Expected: 01/30/2025, Expires: 05/01/[address] [facility] Comment on above: Expected: 01/30/2025, Expires: Start: 01-30-2025 End: 05-01-2025 Ferritin [Mass/volume] in Serum or Plasma FERRITIN Lab Routine Anemia, unspecified type Expected: 01/30/2025, Expires: 05/01/[address] [facility] Comment on above: Expected: 01/30/2025, Expires: Start: 01-30-2025 End: 05-01-2025 Folate [Mass/volume] in Serum or Plasma FOLATE, SERUM Lab Routine Anemia, unspecified type Expected: 01/30/2025, Expires: 05/01/[address] [facility] Comment on above: Expected: 01/30/2025, Expires: Start: 01-30-2025 End: 05-01-2025 Iron and Iron binding capacity panel - Serum or Plasma IRON AND TIBC Lab Routine Anemia, unspecified type Expected: 01/30/2025, Expires: 05/01/[address] [facility] Work Phone: Comment on above: Expected: 01/30/2025, Expires: Start: 01-21-2025 End: 01-21-2025 Patient encounter procedure 01/21/2025 11:20 AM EDT Office Visit Family [place] [address] [place] [address] Humberto Jackson MD [address] [place] [address] 2 week follow up Family Samir [place] Comment on above: 2 week follow up Start: 01-12-2025 [facility] Start: 01-06-2025 End: 01-06-2025 Patient encounter procedure 01/06/2025 2:30 PM EDT Office Visit [place] [id number] [facility] [address] [facility] [phone] Ja Mckeon MD [address] [place], [place] [address] [place] [address] Gynecomastia [N62] [facility] Comment on above: Gynecomastia [N62] Start: 01-06-2025 End: 04-07-2025 Corticotropin [Mass/volume] in Plasma ACTH BLD Lab Routine Gynecomastia, male Expected: 01/06/2025, Expires: 04/07/[address] [facility] Work Phone: Comment on above: Expected: 01/06/2025, Expires: Start: 01-06-2025 End: 04-07-2025 INSULIN LIK GR FAC I INSULIN LIK GR FAC I Lab Routine Gynecomastia, male Expected: 01/06/2025, Expires: 04/07/[address] [facility] Comment on above: Expected: 01/06/2025, Expires: Start: 01-06-2025 End: 04-07-2025 Prolactin [Mass/volume] in Serum or Plasma PROLACTIN Lab Routine Gynecomastia, male Expected: 01/06/2025, Expires: 04/07/[address] [facility] Comment on above: Expected: 01/06/2025, Expires: Start: 01-04-2025 End: 01-04-2025 Patient encounter procedure 01/04/2025 8:40 AM EDT Appointment Radiology [address] [place] [address] Acute pain of right shoulder [M25.511] Radiology Comment on above: Acute pain of right shoulder [M25.511] Start: 12-30-2024 End: 12-30-2024 Patient encounter procedure [facility] [place] Comment on above: physical Start: 12-18-2024 End: 12-18-2024 ambulatory 12/18/2024 8:30 AM EDT [facility] [address] [address] Karthik Nolan MD [address] [place] [address] Gynecomastia, male [N62] [facility] Comment on above: Gynecomastia, male [N62] Start: 2024 Shingrix Vaccine (1 of 2) Shingrix Vaccine (1 of 2) [facility] Start: 2024 Zoster Vaccines (1 of 2) Zoster Vaccines (1 of 2) [facility] Start: 12-11-2024 End: 12-11-2024 Patient encounter procedure 12/11/2024 10:00 AM EST Appointment Radiology [address] [place] [address] Gynecomastia, male [N62] Radiology Comment on above: Gynecomastia, male [N62] Start: 12-07-2024 End: 03-08-2025 CBC W Auto Differential panel - Blood COMPLETE BLOOD COUNT AND DIFFERENTIAL Lab Routine GERD without esophagitis Expected: 12/07/2024, Expires: 03/08/[address] [facility] Comment on above: Expected: 12/07/2024, Expires: Start: 12-07-2024 End: 03-08-2025 Cobalamin (Vitamin B12) [Mass/volume] in Serum or Plasma VITAMIN B12 Lab Routine Medication management Expected: 12/07/2024, Expires: 03/08/[address] [facility] Comment on above: Expected: 12/07/2024, Expires: Start: 12-07-2024 End: 03-08-2025 Comprehensive metabolic 2000 panel - Serum or Plasma COMPREHENSIVE METABOLIC PANEL Lab Routine Type 2 diabetes mellitus without complication, without long-term current use of insulin (HCC) Expected: 12/07/2024, Expires: 03/08/[address] [facility] Comment on above: Expected: 12/07/2024, Expires: Start: 12-07-2024 End: 03-08-2025 Hemoglobin A1c in Blood HEMOGLOBIN A1C Lab Routine Type 2 diabetes mellitus without complication, without long-term current use of insulin (HCC) Expected: 12/07/2024, Expires: 03/08/[address] [facility] Comment on above: Expected: 12/07/2024, Expires: Start: 12-07-2024 End: 03-08-2025 LIPID PANEL, NONFASTING LIPID PANEL, NONFASTING Lab Routine Dyslipidemia Expected: 12/07/2024, Expires: 03/08/[address] [facility] Comment on above: Expected: 12/07/2024, Expires: Start: 12-07-2024 End: 03-08-2025 Magnesium [Mass/volume] in Serum or Plasma MAGNESIUM Lab Routine Medication management Expected: 12/07/2024, Expires: 03/08/[address] [facility] Comment on above: Expected: 12/07/2024, Expires: Start: 12-07-2024 End: 03-08-2025 Thyrotropin [Units/volume] in Serum or Plasma THYROID STIMULATING HORMONE Lab Routine Multiple thyroid nodules Expected: 12/07/2024, Expires: 03/08/[address] [facility] Comment on above: Expected: 12/07/2024, Expires: Start: 12-07-2024 End: 03-08-2025 Urinalysis complete panel - Urine URINALYSIS, WITH MICROSCOPIC Lab Routine Type 2 diabetes mellitus without complication, without long-term current use of insulin (HCC) Expected: 12/07/2024, Expires: 03/08/[address] [facility] Comment on above: Expected: 12/07/2024, Expires: Start: 12-06-2024 Annual PCP Team Chronic Disease Visit Annual PCP Team Chronic Disease Visit [facility] Start: 12-06-2024 Hepatitis B surface antibody level LDL Cholesterol [facility] Start: 12-03-2024 End: 12-03-2024 Patient encounter procedure Mammogram Comment on above: Dx: Subareolar mass of right breast [N63 .41] COMP LUMP RIGHT/DYLON DIAGOSTIC Start: 11-26-2024 End: 02-25-2025 Basic metabolic 2000 panel - Serum or Plasma BASIC METABOLIC PANEL Lab Routine Medication management Expected: 11/26/2024, Expires: 02/25/[address] [facility] Comment on above: Expected: 11/26/2024, Expires: Start: 11-26-2024 End: 02-25-2025 CREATININE BLD CREATININE BLD Lab Routine Medication management Expected: 11/26/2024, Expires: 02/25/[address] [facility] Comment on above: Expected: 11/26/2024, Expires: Start: 11-22-2024 End: 02-21-2025 Choriogonadotropin.beta subunit [Units/volume] in Serum or Plasma [facility] Comment on above: Expected: 11/22/2024, Expires: Start: 11-22-2024 End: 02-21-2025 Estradiol (E2) [Mass/volume] in Serum or Plasma [facility] Comment on above: Expected: 11/22/2024, Expires: Start: 11-22-2024 End: 02-21-2025 Follitropin [Units/volume] in Serum or Plasma [facility] Comment on above: Expected: 11/22/2024, Expires: Start: 11-22-2024 End: 02-21-2025 Lutropin [Units/volume] in Serum or Plasma [facility] [employer] Work Phone: Comment on above: Expected: 11/22/2024, Expires: Start: 11-22-2024 End: 02-21-2025 Prolactin [Mass/volume] in Serum or Plasma [facility] Comment on above: Expected: 11/22/2024, Expires: Start: 11-22-2024 End: 02-21-2025 Testosterone [Mass/volume] in Serum or Plasma [facility] Comment on above: Expected: 11/22/2024, Expires: Start: 11-22-2024 End: 02-21-2025 Thyrotropin [Units/volume] in Serum or Plasma [facility] Comment on above: Expected: 11/22/2024, Expires: Start: 11-22-2024 End: 02-21-2025 Thyroxine (T4) free [Mass/volume] in Serum or Plasma [facility] Comment on above: Expected: 11/22/2024, Expires: Start: 11-22-2024 End: 11-22-2024 Patient encounter procedure Family Medicine [place] Comment on above: right nipple hurts Contacted patient du e to provider being absent patient is aware of appointment needing to be rescheduled- Start: 10-25-2024 End: 10-25-2024 Patient encounter procedure 10/25/2024 8:15 AM EST Appointment Radiology [address] [place] [address] Elevated alkaline phosphatase level [R74.8] Radiology Comment on above: Elevated alkaline phosphatase level [R74 .8] Start: 10-21-2024 End: 10-21-2024 Patient encounter procedure 10/21/2024 8:00 AM EST Office Visit [facility] Ophthalmology [address] [place] [address] Erica Mejia, OD [address] [place] [address] for diabetic eye exam Ophthalmology Comment on above: for diabetic eye exam Start: 10-20-2024 Glaucoma screening Dilated Retinal Exam [facility] Start: 10-17-2024 End: 01-16-2025 ALK PHOS ISOENZYM BL ALK PHOS ISOENZYM BL Lab Routine Elevated alkaline phosphatase level Expected: 10/17/2024, Expires: 01/16/[address] [facility] Work Phone: Comment on above: Expected: 10/17/2024, Expires: Start: 10-17-2024 End: 01-16-2025 Gamma glutamyl transferase [Enzymatic activity/volume] in Serum or Plasma GGT Lab Routine Elevated alkaline phosphatase level Expected: 10/17/2024, Expires: 01/16/[address] [facility] Comment on above: Expected: 10/17/2024, Expires: Start: 10-17-2024 End: 01-16-2025 Mitochondria Ab [Presence] in Serum by Immunofluorescence MITOCHONDRIAL M2 IGG SERUM Lab Routine Elevated alkaline phosphatase level Expected: 10/17/2024, Expires: 01/16/[address] [facility] Comment on above: Expected: 10/17/2024, Expires: Start: 10-14-2024 End: 10-14-2024 Patient encounter procedure 10/14/2024 1:40 PM EST Office Visit Family Medicine [place] [address] [place] [address] Humberto Jackson MD [address] [place] [address] Increased GERD Family Medicine [place] Comment on above: Increased GERD Start: 09-17-2024 End: 09-17-2024 Patient encounter procedure 09/17/2024 9:20 AM EST Office Visit Family Medicine [place] [address] [place] [address] Humberto Jackson MD [address] [place] [address] 4 week follow up ADHD/depression Family Medicine [place] Comment on above: 4 week follow up ADHD/depression Start: 09-05-2024 End: 12-05-2024 Hemoglobin A1c in Blood HEMOGLOBIN A1C Lab Routine Type 2 diabetes mellitus without complication, without long-term current use of insulin (HCC) Expected: 09/05/2024, Expires: 12/05/[address] [facility] Comment on above: Expected: 09/05/2024, Expires: Start: 09-05-2024 End: 12-05-2024 LIPID PANEL, NONFASTING LIPID PANEL, NONFASTING Lab Routine Dyslipidemia Expected: 09/05/2024, Expires: 12/05/[address] [facility] Work Phone: Comment on above: Expected: 09/05/2024, Expires: 5 Start: 08-26-2024 End: 08-26-2024 ambulatory 08/26/2024 10:30 AM EST OT/PT/Speech Visit [facility] Physical Therapy [address] [place] [address] Storm Patel, PT [address] [place] [address] Acute pain of right shoulder [M25.511] [facility] Physical Therapy Comment on above: Acute pain of right shoulder [M25.511] Start: 08-21-2024 Hemoglobin A1c measurement HbA1C [facility] Start: 08-19-2024 End: 08-19-2024 ambulatory 08/19/2024 9:30 AM EST OT/PT/Speech Visit [facility] Physical Therapy [address] [place] [address] GoliasBeulahnt, PT [address] [place] [address] Acute pain of right shoulder [M25.511] [facility] Physical Therapy Comment on above: Acute pain of right shoulder [M25.511] Start: 08-12-2024 End: 08-12-2024 ambulatory 08/12/2024 8:45 AM EST OT/PT/Speech Visit [facility] Physical Therapy [address] [place] [address] Kas[employer] doe, [employer] [address] [place] [address] Acute pain of right shoulder [M25.511] [facility] Physical Therapy Comment on above: Acute pain of right shoulder [M25.511] Start: 08-11-2024 Hepatitis B screening Urine Albumin:Creatinine Ratio [facility] Start: 08-11-2024 Hepatitis B surface antibody level LDL Cholesterol [facility] Start: 08-05-2024 End: 08-05-2024 ambulatory 08/05/2024 7:45 AM EDT OT/PT/Speech Visit [facility] Physical Therapy [address] [place] [address] Storm Patel, PT [address] [place] [address] Acute pain of right shoulder [M25.511] [facility] Physical Therapy Comment on above: Acute pain of right shoulder [M25.511] Start: 07-29-2024 End: 07-29-2024 ambulatory 07/29/2024 9:30 AM EDT OT/PT/Speech Visit [facility] Physical Therapy [address] [place] [address] Storm Patel, PT [address] [place] [address] M25.511 (ICD-10-CM) - Acute pain of right shoulder [facility] Physical Therapy Comment on above: M25.511 (ICD-10-CM) - Acute pain of righ t shoulder Start: 07-22-2024 End: 07-22-2024 ambulatory 07/22/2024 9:30 AM EDT OT/PT/Speech Visit [facility] Physical Therapy [address] [address] [place] [address] Storm Patel, PT [address] [place] [address] M25.511 (ICD-10-CM) - Acute pain of right shoulder [facility] Comment on above: M25.511 (ICD-10-CM) - Acute pain of righ t shoulder Start: 07-07-2024 3 comp foot exam completed Diabetic Foot Exam [facility] Start: 07-07-2024 Diabetic foot examination [facility] Foot Exam [facility] Start: 07-05-2024 End: 07-05-2024 ambulatory 07/05/2024 8:45 AM EDT OT/PT/Speech Visit [facility] [address] [place] [address] Ruby Cho, MOBILE EQUIPMENT SERVICER [address] [place] [address] M25.511 (ICD-10-CM) - Acute pain of right shoulder [facility] Comment on above: M25.511 (ICD-10-CM) - Acute pain of righ t shoulder Start: 06-28-2024 End: 06-28-2024 ambulatory 06/28/2024 8:00 AM EDT OT/PT/Speech Visit [facility] [address] [place] [address] Ruby Cho, MOBILE EQUIPMENT SERVICER [address] [place] [address] M25.511 (ICD-10-CM) - Acute pain of right shoulder [facility] Comment on above: M25.511 (ICD-10-CM) - Acute pain of righ t shoulder Start: 06-12-2024 End: 06-12-2024 ambulatory 06/12/2024 9:00 AM EDT OT/PT/Speech Visit [facility] [address] [place], [place] [id number] Storm Patel, PT [address] [place] [place] [address] Acute pain of right shoulder [M25.511] [facility] Comment on above: Acute pain of right shoulder [M25.511] Start: 06-09-2024 [facility] Start: 06-06-2024 End: 06-06-2024 Patient encounter procedure 06/06/2024 8:00 AM EDT Office Visit [facility] [address] [place], [place] [address] Dominik Kelley APRN.CIRCUIT COURT CLERK [address] [place], [place] [id number] 6 month follow up [facility] Comment on above: 6 month follow up Start: 05-21-2024 End: 08-20-2024 CBC W Auto Differential panel - Blood [facility] Comment on above: Expected: 05/21/2024, Expires: 4 Start: 05-21-2024 End: 08-20-2024 Comprehensive metabolic 2000 panel - Serum or Plasma [facility] Comment on above: Expected: 05/21/2024, Expires: 4 Start: 05-21-2024 End: 08-20-2024 Hemoglobin A1c in Blood [facility] Comment on above: Expected: 05/21/2024, Expires: 4 Start: 05-21-2024 End: 08-20-2024 LIPID PANEL, NONFASTING [facility] Comment on above: Expected: 05/21/2024, Expires: Start: 05-21-2024 End: 08-20-2024 Thyrotropin [Units/volume] in Serum or Plasma [facility] Comment on above: Expected: 05/21/2024, Expires: Start: 04-18-2024 End: 04-18-2024 Patient encounter procedure 04/18/2024 9:45 AM EDT Office Visit Endocrinology [address] [address] Torres Monaco, GHULAM.CIRCUIT COURT CLERK [address] [address] 3m follow up [facility] Comment on above: 3m follow up Start: 04-17-2024 Hemoglobin A1c measurement HbA1C [facility] Start: 04-14-2024 ANNUAL PCP TEAM CHRONIC DISEASE VISIT ANNUAL PCP TEAM CHRONIC DISEASE VISIT [facility] Start: 04-10-2024 ANNUAL PCP TEAM CHRONIC DISEASE VISIT ANNUAL PCP TEAM CHRONIC DISEASE VISIT [facility] Start: 01-17-2024 Hemoglobin A1c measurement HbA1C [facility] Start: 01-10-2024 ANNUAL PCP TEAM CHRONIC DISEASE VISIT ANNUAL PCP TEAM CHRONIC DISEASE VISIT [facility] Start: 12-10-2023 Hepatitis C antibody, confirmatory test DILATED RETINAL EXAM [facility] Start: 12-08-2023 ANNUAL PCP TEAM CHRONIC DISEASE VISIT ANNUAL PCP TEAM CHRONIC DISEASE VISIT [facility] Start: 12-08-2023 Hepatitis B surface antibody level LDL CHOLESTEROL [facility] Start: 10-06-2023 Hemoglobin A1c/Hemoglobin.total in Blood HbA1C [facility] Start: 08-17-2023 ANNUAL PCP TEAM CHRONIC DISEASE VISIT ANNUAL PCP TEAM CHRONIC DISEASE VISIT [facility] Start: 08-11-2023 End: 10-11-2023 ALBUMIN/CREAT RATIO RND UR ALBUMIN/CREAT RATIO RND UR Lab Routine Type 2 diabetes mellitus without complication, without long-term current use of insulin (HCC) Expected: 08/11/2023, Expires: 10/11/[address] [facility] Work Phone: Comment on above: Expected: 08/11/2023, Expires: Start: 08-11-2023 ANNUAL PCP TEAM CHRONIC DISEASE VISIT ANNUAL PCP TEAM CHRONIC DISEASE VISIT [facility] Start: 08-11-2023 End: 10-11-2023 CBC W Auto Differential panel - Blood CBC + DIFF Lab Routine Type 2 diabetes mellitus without complication, without long-term current use of insulin (HCC) Expected: 08/11/2023, Expires: 10/11/[address] [facility] Work Phone: Comment on above: Expected: 08/11/2023, Expires: 4 Start: 08-11-2023 End: 10-11-2023 Comprehensive metabolic 2000 panel - Serum or Plasma COMP METABOLIC PANEL Lab Routine Migraine without aura and without status migrainosus, not intractable Type 2 diabetes mellitus without complication, without long-term current use of insulin (HCC) Expected: 08/11/2023, Expires: 10/11/[address] [facility] Work Phone: Comment on above: Expected: 08/11/2023, Expires: 4 Start: 08-11-2023 End: 10-11-2023 LIPID PANEL, NONFASTING LIPID PANEL, NONFASTING Lab Routine Dyslipidemia Expected: 08/11/2023, Expires: 10/11/[address] [facility] Work Phone: Comment on above: Expected: 08/11/2023, Expires: 4 Start: 08-11-2023 End: 10-11-2023 Urinalysis complete panel - Urine URINALYSIS, WITH MICROSCOPIC Lab Routine Type 2 diabetes mellitus without complication, without long-term current use of insulin (HCC) Expected: 08/11/2023, Expires: 10/11/[address] [facility] Work Phone: Comment on above: Expected: 08/11/2023, Expires: 4 Start: 06-09-2023 Covid-19 Vaccine () Covid-19 Vaccine () [facility] Start: 06-09-2023 Influenza vaccination INFLUENZA (#1) [facility] Start: 06-05-2023 Hepb vaccine adult 3 dose schedule for im use HEPATITIS B VACCINE, ADULT AGE 20+, IM Immunization/Injection Routine Need for vaccination Expected: 06/05/2023 (Approximate) [facility] Work Phone: Comment on above: Expected: 06/05/2023 (Approximate) Start: 06-04-2023 3 comp foot exam completed DIABETIC FOOT EXAM [facility] Start: 06-04-2023 ANNUAL PCP TEAM CHRONIC DISEASE VISIT ANNUAL PCP TEAM CHRONIC DISEASE VISIT [facility] Start: 06-04-2023 Hepatitis B screening URINE ALBUMIN:CREATININE RATIO [facility] Start: 06-04-2023 Hepatitis B surface antibody level LDL CHOLESTEROL [facility] Start: 04-28-2023 Hemoglobin A1c/Hemoglobin.total in Blood HBA1C [facility] Start: 04-15-2023 Patient discharge [facility] Start: 04-14-2023 Application of intermittent pneumatic compression device [facility] Start: 04-14-2023 Following clinical pathway protocol [facility] Start: 04-14-2023 [facility] Start: 04-14-2023 Admission procedure [facility] Start: 04-14-2023 Incision and drainage of perirectal abscess Incision & Drainage of Tressa-Rectal Absce (Not Applicable) [facility] Start: 04-14-2023 Anaerobic Culture Anaerobic Culture [facility] Start: 04-14-2023 Microbial culture, routine Wound Culture [facility] Start: 03-04-2023 3 comp foot exam [facility] Start: 01-19-2023 Hemoglobin A1c/Hemoglobin.total in Blood HBA1C [facility] Start: 12-18-2022 HEPATITIS B (3 of 3 - 19+ 3-dose series) HEPATITIS B (3 of 3 - 19+ 3-dose series) [facility] Start: 12-07-2022 End: 02-06-2023 LIPID PANEL, NONFASTING [facility] Work Phone: Comment on above: Expected: 12/07/2022, Expires: Start: 12-06-2022 Hepb vaccine adult 3 dose schedule for im use HEPATITIS B VACCINE, ADULT AGE 20+, IM Immunization/Injection Routine Expected: 12/06/[address] [facility] Work Phone: Comment on above: Expected: 12/06/2022 Start: 12-01-2022 Hepatitis C antibody, confirmatory test DILATED RETINAL EXAM [facility] Start: 10-15-2022 ANNUAL PCP TEAM CHRONIC DISEASE VISIT ANNUAL PCP TEAM CHRONIC DISEASE VISIT [facility] Start: 10-06-2022 COVID-19 Vaccine (3 - Booster for Ling series) COVID-19 Vaccine (3 - Booster for Ling series) [facility] Start: 09-30-2022 HEPATITIS B (3 of 3 - 3-dose series) HEPATITIS B (3 of 3 - 3-dose series) [facility] Start: 09-04-2022 Hemoglobin A1c/Hemoglobin.total in Blood HBA1C [facility] Start: 08-16-2022 Colonoscopy COLONOSCOPY [facility] Start: 08-16-2022 COLORECTAL CANCER SCREENING COLORECTAL CANCER SCREENING [facility] Start: 07-08-2022 HEPATITIS B (2 of 3 - 3-dose series) HEPATITIS B (2 of 3 - 3-dose series) [facility] Start: 07-07-2022 Hepb vaccine adult 3 dose schedule for im use HEPATITIS B VACCINE, ADULT AGE 20+, IM Immunization/Injection Routine Expected: 07/07/[address] [facility] Work Phone: Comment on above: Expected: 07/07/2022 Start: 06-09-2022 Influenza vaccination [facility] Start: 06-04-2022 End: 08-04-2022 ALBUMIN/CREAT RATIO RND UR ALBUMIN/CREAT RATIO RND UR Lab Routine Type 2 diabetes mellitus without complication, without long-term current use of insulin (HCC) Expected: 06/04/2022 (Approximate), Expires: 08/04/[address] [facility] Work Phone: Comment on above: Expected: 06/04/2022 (Approximate), Expi res: 08/04/2022 Start: 06-04-2022 End: 08-04-2022 Comprehensive metabolic 2000 panel - Serum or Plasma COMP METABOLIC PANEL Lab Routine Type 2 diabetes mellitus without complication, without long-term current use of insulin (HCC) Expected: 06/04/2022 (Approximate), Expires: 08/04/[address] [facility] Work Phone: Comment on above: Expected: 06/04/2022 (Approximate), Expi res: 08/04/2022 Start: 06-04-2022 End: 08-04-2022 Hemoglobin A1c/Hemoglobin.total in Blood [facility] Work Phone: Comment on above: Expected: 06/04/2022 (Approximate), Expi res: 08/04/2022 Start: 06-04-2022 End: 08-04-2022 LIPID PANEL BASIC LIPID PANEL BASIC Lab Routine Type 2 diabetes mellitus without complication, without long-term current use of insulin (HCC) Dyslipidemia Expected: 06/04/2022 (Approximate), Expires: 08/04/[address] [facility] Work Phone: Comment on above: Expected: 06/04/2022 (Approximate), Expi res: 08/04/2022 Start: 06-04-2022 End: 08-04-2022 Thyrotropin [Units/volume] in Serum or Plasma TSH BLD Lab Routine Type 2 diabetes mellitus without complication, without long-term current use of insulin (HCC) Expected: 06/04/2022 (Approximate), Expires: 08/04/[address] [facility] Work Phone: Comment on above: Expected: 06/04/2022 (Approximate), Expi res: 08/04/2022 Start: 12-22-2021 3 comp foot exam completed DIABETIC FOOT EXAM [facility] Start: 12-22-2021 Hepatitis B screening URINE ALBUMIN:CREATININE RATIO [facility] Start: 12-22-2021 Hepatitis B surface antibody level LDL CHOLESTEROL [facility] Start: 10-13-2021 COVID-19 VACCINE (3 - Booster for Ling series) COVID-19 VACCINE (3 - Booster for Ling series) [facility] Start: 06-24-2021 Hemoglobin A1c/Hemoglobin.total in Blood HBA1C [facility] Start: 06-09-2021 Influenza vaccination INFLUENZA (#1) [facility] Start: 12-14-2019 COLOGUARD (FIT-DNA) COLOGUARD (FIT-DNA) [facility] Start: 12-14-[address] COLONOGRAPHY [facility] Start: 12-14-2019 FECAL OCCULT BLOOD FECAL OCCULT BLOOD [facility] Start: 12-14-2019 Screening for malignant neoplasm of colon [facility] Start: 12-14-2019 SIGMOIDOSCOPY SIGMOIDOSCOPY [facility] Start: 1993 HEPATITIS B (1 of 3 - Risk 3-dose series) HEPATITIS B (1 of 3 - Risk 3-dose series) [facility] Start: 1992 HEPATITIS C SCREENING HEPATITIS C SCREENING [facility] Start: 1992 Hepatitis C screening Hepatitis C Screening [facility] Start: 1992 HIV SCREENING HIV SCREENING [facility] Start: 12-14-1975 MMR Vaccines (1 of 1 - Standard series) MMR Vaccines (1 of 1 - Standard series) [facility] Start: 1974 HEPATITIS B (1 of 3 - 3-dose series) HEPATITIS B (1 of 3 - 3-dose series) [facility] Start: 1974 HIV screening HIV Screening [facility] Start: 1974 Lipid panel Lipid Panel [facility] Start: 1974 Screening for malignant neoplasm of colon [facility] Start: 1974 Yearly Adult Physical Yearly Adult Physical [facility] Bacteria identified in Unspecified specimen by Anaerobe culture [facility] CYTOLOGY NON-MANAGER [facility]PD[facility]K CYTOLOGY NON-GY N Lab Routine Multiple thyroid nodules 01/31/2024 2:19 PM EDT [facility] Work Phone: End: 03-06-2026 Echocardiography ECHO Cardiology Routine Tachycardia Lightheadedness 1 Occurrences starting 03/06/2025 until 03/06/[address] [facility] Work Phone: Comment on above: 1 Occurrences starting 03/06/2025 until 03/06/2026 Esophageal motility study w/interp&rpt ESOPHAGEAL MANOMETRY Gastroesophageal reflux disease, unspecified whether esophagitis present Esophageal dysphagia [facility] End: 03-10-2026 Flexible sigmoidoscopy study COLONOSCOPY DIAGNOSTIC Endoscopy Routine Anemia, unspecified type 1 Occurrences starting 03/10/2025 until 03/10/[address] [facility] Work Phone: Comment on above: 1 Occurrences starting 03/10/2025 until 03/10/2026 Hepb vaccine adult 3 dose schedule for im use HEPATITIS B VACCINE, ADULT AGE 20+, IM Immunization/Injection Routine Ordered: 06/06/[address] [facility] Work Phone: Comment on above: Ordered: 06/06/2022 End: 02-06-2026 Manometry Study observation Narrative MANOMETRY ESOPHAGEAL Endoscopy Routine Esophageal dysphagia 1 Occurrences starting 02/06/2025 until 02/06/[address] [facility] Comment on above: 1 Occurrences starting 02/06/2025 until 02/06/2026 End: 12-22-2025 MG Breast - bilateral Diagnostic FIGUEROA DIAGNOSTIC BILATERAL Radiology Routine Subareolar mass of right breast 1 Occurrences starting 11/22/2024 until 12/22/[address] [facility] Comment on above: 1 Occurrences starting 11/22/2024 until 12/22/2025 End: 12-26-2025 MR Brain WO and W contrast IV MRI BRAIN WO/W IVCON Radiology Routine Gynecomastia, male Low testosterone in male Elevated prolactin level 1 Occurrences starting 11/26/2024 until 12/26/[address] [facility] Work Phone: Comment on above: 1 Occurrences starting 11/26/2024 until 12/26/2025 End: 02-05-2026 MR Pituitary and Sella turcica WO and W contrast IV MRI PITUITARY WO/W IVCON Radiology Routine Abnormal brain MRI 1 Occurrences starting 01/06/2025 until 02/05/[address] [facility] Comment on above: 1 Occurrences starting 01/06/2025 until 02/05/2026 End: 01-19-2026 MR Shoulder - right WO contrast MRI SHOULDER WO IVCON RIGHT Radiology Routine Acute pain of right shoulder 1 Occurrences starting 12/20/2024 until 01/19/[address] [facility] Work Phone: Comment on above: 1 Occurrences starting 12/20/2024 until 01/19/2026 MR Shoulder - right WO contrast MRI SHOULDER WO IVCON RIGHT Radiology Routine Acute pain of right shoulder 01/04/2025 9:08 AM EDT [facility] Work Phone: OUTSIDE VENDOR CARDI AC OUTPATIENT EXTENDED RHYTHM RECORDING (WITHOUT TELEMETRY) OUTSIDE VENDOR CARDIAC OUTPATIENT EXTENDED RHYTHM RECORDING (WITHOUT TELEMETRY) Holter Routine Tachycardia Lightheadedness Ordered: 03/06/[address] 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 Medication management 12/07/2022 10:21 AM [facility] Work Phone: PAIN PANEL, UR QUANT PAIN PANEL, UR QUANT Lab Routine Attention 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 Medication management 12/07/2022 10:22 AM [facility] Work Phone: PAIN PANEL, UR QUANT PAIN PANEL, UR QUANT Lab Routine Attention 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 Medication management 08/19/2024 3:53 PM [facility] Work Phone: PAIN PANEL, UR QUANT PAIN PANEL, UR QUANT Lab Routine Attention 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 Medication management 08/19/2024 3:53 PM [facility] Patient referral [facility] Work Phone: End: 03-08-2026 RF Gastrointestinal tract upper Views W air contrast PO and W barium contrast PO XR UPPER GI ROUTINE DOUBLE CONTRAST/AIR Radiology Routine Gastroesophageal reflux disease, unspecified whether esophagitis present 1 Occurrences starting 02/06/2025 until 03/08/[address] [facility] Work Phone: Comment on above: 1 Occurrences starting 02/06/2025 until 03/08/2026 SPECIMEN VALIDITY, URINE SPECIME N VALIDITY, URINE Lab Routine Attention 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 Medication management 12/07/2022 10:21 AM [facility] Work Phone: SPECIMEN VALIDITY, URINE SPECIME N VALIDITY, URINE Lab Routine Attention 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 Medication management 08/19/2024 3:54 PM [facility] TOXICOLOGY SCREEN, R OUTINE URINE TOXICOLOGY SCREEN, ROUTINE URINE Lab Routine Attention 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 Medication management 08/19/2024 3:53 PM [facility] US Abdomen RUQ US ABD RIGHT UPP ER QUADRANT Radiology Routine Elevated alkaline phosphatase level 10/25/2024 7:58 AM [facility] Work Phone: End: 12-22-2025 US Breast - right limited US BREAST LTD RIGHT Radiology Routine Subareolar mass of right breast 1 Occurrences starting 11/22/2024 until 12/22/[address] [facility] Comment on above: 1 Occurrences starting 11/22/2024 until 12/22/2025 End: 03-06-2026 US Carotid arteries - bilateral US CAROTID ARTERIES [facility] Lab Routine Tachycardia Lightheadedness 1 Occurrences starting 03/06/2025 until 03/06/[address] [facility] Comment on above: 1 Occurrences starting 03/06/2025 until 03/06/2026 End: 08-05-2024 US Thyroid gland US THYROID/PARATHYROID Radiology Routine Multiple thyroid nodules 1 Occurrences starting 07/07/2023 until 08/05/[address] [facility] Work Phone: Comment on above: 1 Occurrences starting 07/07/2023 until 08/05/2024 US Thyroid gland US THYROID/PARA THYROID Radiology Routine Multiple thyroid nodules 01/19/2024 3:53 PM EDT [facility] Work Phone: End: 06-20-2025 XR Shoulder - right 3 Views XR SHOULDER GENERAL 3V OR MORE AP/TRUE AP/OTHER RIGHT Radiology Routine Acute pain of right shoulder 1 Occurrences starting 05/21/2024 until 06/20/[address] [facility] Work Phone: Comment on above: 1 Occurrences starting 05/21/2024 until 06/20/2025 XR Shoulder - right 3 Views XR SHOULDER GENERAL 3V OR MORE AP/TRUE AP/OTHER RIGHT Radiology Routine Acute pain of right shoulder 05/21/2024 4:17 PM EDT [facility] Immunizations Immunization Date Immunization Notes Care Provider Randee hale 06-29-2024 COVID-19 vaccine, unspecified formulation Storm Patel PT Work Phone: [facility] 06-29-2024 influenza virus vacc ine, unspecified formulation Storm Golias PT Work Phone: [facility] 12-06-2023 COVID-19 vaccine, ag e 12+ yr, 2022- season ([employer]) Humberto Jackson MD Work Phone: [facility] 12-06-2023 pneumococcal conjuga te (PCV20) vaccine, 20 valent (PREVNAR 20) Humberto Jackson MD Work Phone: [facility] 12-06-2023 pneumococcal Conjuga te, unspecified formulation Humberto Jackson MD Work Phone: [facility] Work Phone: 07-07-2023 influenza, injectabl e, quadrivalent, contains preservative Torres Monaco APRN.CIRCUIT COURT CLERK Work Phone: [facility] 07-07-2023 influenza virus vacc ine, unspecified formulation Humberto Jackson MD Work Phone: [facility] 12-07-2022 hepatitis B vaccine, adult dosage Humberto Jackson MD Work Phone: [facility] 08-11-2022 COVID-19 booster vaccine, age 12+ yr, bivalent ([employer]-BIONTECH) Kenyatta Castaneda PA-C Work Phone: [facility] 08-11-2022 influenza, injectabl e, quadrivalent, contains preservative Kenyatta Castaneda PA-C Work Phone: [facility] 07-20-2022 hepatitis B vaccine, adult dosage Nv Nurse Work Phone: [facility] Work Phone: 07-20-2022 hepatitis B vaccine, unspecified formulation Mi Nurse Work Phone: [facility] 06-10-2022 hepatitis B vaccine, adult dosage Mi Nurse Work Phone: [facility] Work Phone: 06-10-2022 hepatitis B vaccine, unspecified formulation Nv Nurse Work Phone: [facility] 04-13-2021 tetanus toxoid, redu minda diphtheria toxoid, and acellular pertussis vaccine, adsorbed Humberto Jackson MD Work Phone: [facility] 12-14-2020 COVID-19 vaccine (LING) Humberto Jackson MD Work Phone: [facility] 08-07-2020 Influenza, injectabl e, Madin Maxine Canine Kidney, quadrivalent with preservative Xr Winslow Work Phone: [facility] 06-28-2019 influenza, injectabl e, quadrivalent, contains preservative Humberto Jackson MD Work Phone: [facility] 08-21-2018 influenza, injectabl e, quadrivalent, preservative free Humberto Jackson MD Work Phone: [facility] 07-27-[address] Humberto Jackson Work Phone: [facility] 07-28-2017 influenza, injectabl e, quadrivalent, contains preservative Humberto Jackson MD Work Phone: [facility] 07-09-[address] Humberto Jackson Work Phone: [facility] [facility] 07-09-2017 influenza, seasonal, injectable Humberto Jackson MD Work Phone: [facility] 01-27-2017 pneumococcal polysaccharide vaccine, 23 valent Humberto Jackson MD Work Phone: [facility] 09-11-2015 pneumococcal conjuga te vaccine, 13 valent Humberto Jackson MD Work Phone: [facility] Work Phone: 07-23-2015 influenza, injectabl e, quadrivalent, contains preservative Humberto Jackson MD Work Phone: [facility] 09-03-2014 influenza, seasonal, injectable Humberto Jackson MD Work Phone: [facility] Work Phone: 01-27-2011 tetanus toxoid, redu minda diphtheria toxoid, and acellular pertussis vaccine, adsorbed Humberto Jackson MD Work Phone: [facility] Payers Date Payer Category Payer Self-pay [id number] 2020 Blue [employer] Blue [employer] BLUE ACCE PPO [id number] 2020 Unknown ABDULAZIZ CHAVEZ ACCE SS PPO [id number] 2020-Present [phone] [place] [address] PPO [id number] 2020 Unknown [id number] 2020 Unknown [id number] 1975 Unknown [id number] Private Health Insurance Private Health Insurance [employer] [id number] Unknown [id number] Unknown [id number] Unknown [id number] Unknown [id number] Unknown [id number] Unknown [id number] Unknown [id number] Unknown [id number] Social History Date Type Detail Facility Start: 05-12-2015 End: 06-04-2022 Tobacco smoking status NHIS Never smoked tobacco [facility] Start: 10-15-2021 End: 03-06-2025 Alcohol intake Current drinker of alcohol (finding) [facility] Start: 03-24-2020 History SDOH Alcohol Frequency [address] [facility] Start: 03-24-2020 End: 08-11-2022 History SDOH Alcohol Std Drinks [address] [facility] Start: 05-12-2015 History SDOH Alcohol Comment Rarely [facility] Start: 02-11-2020 End: 08-11-2022 History SDOH Social Connections Membership [address] [facility] Start: 02-11-2020 End: 06-04-2022 History SDOH Social Connections Living [address] [facility] Start: 02-11-2020 End: 06-04-2022 History SDOH Physical Activity DPW [address] [facility] Start: 03-24-2020 End: 06-04-2022 History SDOH Financial [address] [facility] Start: 02-10-2020 Education [address] [facility] Start: 1975 Sex Assigned At Male [facility] Start: 09-20-2020 End: 10-27-2023 Exposure to SARS-CoV-2 (event) Not sure [facility] Start: 04-09-2022 End: 04-19-2022 Exposure to SARS-CoV-2 (event) Unable to assess [facility] Start: 05-12-2015 End: 06-04-2022 Tobacco use and exposure Smokeless tobacco non-user [facility] Start: 04-14-2023 Tobacco smoking status NHIS Unknown if ever smoked [facility] Start: 10-11-2017 None [facility] Start: 10-11-2017 Spouse/ Significant Other [facility] Start: 10-11-2017 Non-smoker [facility] Start: 06-03-2022 End: 04-10-2023 History of Social function [facility] Start: 06-03-2022 End: 04-10-2023 Social connection and isolation panel [facility] Do you belong to any clubs or organizations such as congregational groups, unions, fraTBS or athletic groups, or school groups? Yes [facility] Are you now , , , , never or living with a partner? [facility] How often to you hav e a drink containing alcohol? 2-4 times a month [facility] How many standard dr inks containing alcohol do you have on a typical day? 1 or [address] [facility] How often do you hav e 6 or more drinks on 1 occasion? Never [facility] How hard is it for y ou to pay for the very basics like food, housing, medical care, and heating Not hard at all [facility] Do you feel stress - tense, restless, nervous, or anxious, or unable to sleep at night because your mind is troubled all the time - these days [OSQ] Only a little [facility] (I/We) worried wheth er (my/our) food would run out before (I/we) got money to buy more. Never true [facility] In the past 12 month s, was there a time when you were not able to pay the mortgage or rent on time? No [facility] Start: 02-10-2020 Gender identity Identifies as male gender (finding) [facility] Start: 02-10-2020 Sexual orientation Heterosexual (finding) [facility] Start: 1975 Sex Assigned At Not on file [facility] Work Phone: How often to you hav e a drink containing alcohol? Monthly or less [facility] How hard is it for y ou to pay for the very basics like food, housing, medical care, and heating Somewhat hard [facility] Do you feel stress - tense, restless, nervous, or anxious, or unable to sleep at night because your mind is troubled all the time - these days [OSQ] To some extent [facility] How often to you hav e a drink containing alcohol? 2-3 time sa week [facility] Medical Equipment Procedure Code Equipment Code Equipment Original Text Equipment Identifier Dates [id number], [id number], [id number] Start: 01-27-2017 End: 10-18-2023 Comment on above: Test blood sugar 1-2 times daily. E11.9 Use four pen needles daily Test blood sugar(s) 1-2 times daily. Dx: 250.00. Insulin: No Use one pen needles daily Use two pen needles daily Use 2 PEN NEEDLES to inject MEDICATION subcutaneously daily Use 4 PEN NEEDLES to inject MEDICATION subcutaneously daily Goals Date Patient Goal Desired Activity /State Functional Status Date Assessment Result Facility 03-06-2025 Total score [AUDIT-C] 1 03/06/20 6:43 AM EDT User, Mychart [facility] 03-06-2025 How often to you hav e a drink containing alcohol? Monthly or less 03/06/2025 6:43 AM EDT User, Mychart Monthly or less [facility] 03-06-[address] inks containing alcohol do you have on a typical day? 1 or 2 03/06/2025 6:43 AM EDT User, Mychart 1 or [address] [facility] 03-06-2025 How often do you hav e 6 or more drinks on 1 occasion? Never 03/06/2025 6:43 AM EDT User, Mychart Never [facility] 01-11-2025 IGF-I Z-score SerPl -1.2 [facility] Comment on above: Order Comment: Speci men Type: BLOOD SPECIMEN Ordering Facility: [facility] Address: [address] [place] [address] Performed By: #### I LGF1 #### [facility] CLIA [id number] [address] [place] [address] [place] [address] [place] 09-28-2023 Are you deaf, or do you have serious difficulty hearing No 09/28/2023 10:53 AM Diamond Sheppard RN No [facility] 09-28-2023 Are you blind, or do you have serious difficulty seeing, even when wearing glasses No 09/28/2023 10:53 AM Diamond Sheppard RN No [facility] 09-28-2023 Do you have serious difficulty walking or climbing stairs No 09/28/2023 10:53 AM Diamond Sheppard RN No [facility] 09-28-2023 Do you have difficul ty dressing or bathing No 09/28/2023 10:53 AM Diamond Sheppard RN No [facility] 09-28-2023 Because of a physica l, mental, or emotional condition, do you have difficulty doing errands alone such as visiting a physician's office or shopping No 09/28/2023 10:53 AM Diamond Sheppard RN No [facility] 04-15-2023 Functional status Bedrest [facility] Work Phone: Mental Status Date Assessment Result Facility 09-28-2023 Because of a physica l, mental, or emotional condition, do you have serious difficulty concentrating, remembering, or making decisions No 09/28/2023 10:53 AM Diamond Sheppard RN No [facility] 04-15-2023 Cognitive function Voice/Name [facility] Work Phone: Clinical Notes 10-20-2020 to 03-10-2025 Telephone Encounter - Carmelo Lopez LPN - 03/10/2025 12:57 PM EDTTelephone Encounter - Carmelo Lopez LPN - 03/10/2025 12:57 PM JAQUELINETBNelda torres APRN.CHRISTOPHER - 03/10/2025 8:30 AM EDT Note Date & Type Note Facility 03-10-2025 Telephone encounter Note Patient notified of results and provider's instructions. Patient verbalizes understanding. Carmelo Lopez LPN [facility] 03-10-2025 Miscellaneous Notes Patient notified of results and provider's instructions. Patient verbalizes understanding. Carmelo Lopez LPN Start iron supplement. I will send in. But also needs the further work up we discussed to see if any blood loss from colon. Repeat labs in 1-2 weeks to trend levels to make sure not worsening. Kenyatta Castaneda PA-C Pt is calling for lab results. Pt is asking what the next step is because he is feeling awful. Latest Ref Rng 03/07/2025 Iron 41 - 186 ug/dL 17 (L) TIBC 232 - 386 ug/dL 387 (H) Transferrin Saturation 15.0 - 57.0 % 4.4 (L) Ferritin 30.3 - 565.7 ng/mL 5.9 (L) Folate >4.7 ng/mL 8.7 Vitamin B12 232 - 1,245 pg/mL 295 Legend: (L) Low (H) High Lois Alberts LPN documented in this encounter [facility] 03-10-2025 Telephone encounter Note Pt notified of results and instructions. Pt verbalizes understanding./ Carmelo Lopez LPN [facility] 03-10-2025 Miscellaneous Notes Pt notified of results and instructions. Pt verbalizes understanding./ Carmelo Lopez LPN Let patient know his b12 is also borderline low. Start OTC b12 1000mcg daily. documented in this encounter [facility] 03-10-2025 Telephone encounter Note Let patient know his b12 is also borderline low. Start OTC b12 1000mcg daily. [facility] 03-10-2025 Telephone encounter Note Start iron supplement. I will send in. But also needs the further work up we discussed to see if any blood loss from colon. Repeat labs in 1-2 weeks to trend levels to make sure not worsening. Kenyatta Castaneda PA-C [facility] 03-10-2025 Telephone encounter Note Pt is calling for lab results. Pt is asking what the next step is because he is feeling awful. Latest Ref Rng 03/07/2025 Iron 41 - 186 ug/dL 17 (L) TIBC 232 - 386 ug/dL 387 (H) Transferrin Saturation 15.0 - 57.0 % 4.4 (L) Ferritin 30.3 - 565.7 ng/mL 5.9 (L) Folate >4.7 ng/mL 8.7 Vitamin B12 232 - 1,245 pg/mL 295 Legend: (L) Low (H) High Lois Alberts LPN [facility] 03-10-2025 History of Present illness Narrative HISTORY AND PHYSICAL Bianca Delarosa : 1975 REFERRING PHYSICIAN: Kenyatta Castaneda [address] [facility] [address] CHIEF COMPLAINT: Patient presents with: low hgb: Low Hgb. SOB easy. Easily fatigued. PCP wants colonoscopy HPI: Bianca is a 49 year old male referred for endoscopy. Bianca notes anemia. Last H&H 9.6 & 31.6. Bianca notes abdominal pain. -over the last week has had low abdominal pain while having bm which passes after bm is finished Bianca denies diarrhea. Bianca denies constipation. Bianca notes a change in bowel habits. -used to have 2-3 bm a day, now going once Bianca denies melena. Bianca denies bright red blood per rectum. Bianca denies hemorrhoids. Bianca notes family history of colon issues. Father with colon cancer and 2 paternal uncles with colon cancer Bianca is scheduled for EGD for GERD and dysphasia with Dr. Bowman at [facility] on 04/04- she does not complete colonoscopies & he notes he wants the procedures completed separately. Bianca notes hx of uncontrolled T2DM- recent weight loss. Last A1C was 10.5 He also notes getting fatigued easily- attributes this to his anemia. He denies CP, dizziness, passing out, recent over night stays in the hospital. Bianca has undergone prior endoscopy. Last colonoscopy was 08/[address] Bliss at [facility]. Sedation: Midazolam 7 mg IV, Fentanyl 100 micrograms IV Impression: - Diverticulosis in the sigmoid colon, in the descending colon, in the transverse colon and in the ascending colon. - Non-bleeding internal hemorrhoids. - No specimens collected. Current Outpatient Medications Medication Sig busPIRone (BUSPAR) 15 mg tablet Take one tab by mouth twice a day. metFORMIN (GLUCOPHAGE) 500 mg tablet TAKE 2 TABLETS BY MOUTH TWO TIMES A DAY WITH MEALS. dexmethylphenidate XR (FOCALIN XR) 20 mg biphasic capsule Take 1 capsule by mouth once daily for 30 days. DULoxetine (CYMBALTA) 60 mg capsule Take 1 capsule by mouth once daily. albuterol HFA (PROVENTIL HFA, VENTOLIN HFA) 90 mcg/actuation inhaler Inhale 2 Puffs as instructed three times a day. OLANZapine (ZYPREXA) 5 mg tablet Take 1 tablet by mouth daily at bedtime. DULoxetine (CYMBALTA) 30 mg capsule Take 1 capsule by mouth once daily. Blood-Glucose Sensor (FREESTYLE EVERT 3 SENSOR) agnes USE ONE SENSOR EVERY 14 DAY, IDDM, E11.9 sucralfate (CARAFATE) 1 gram tablet Take one tab with lunch and before bed. Fenofibrate 120 mg tab Take 1 tablet by mouth once daily. esomeprazole (NEXIUM) 40 mg capsule Take 1 capsule by mouth two times a day. atorvastatin (LIPITOR) 80 mg tablet Take 1 tablet by mouth once daily. doxepin capsule 10 mg Take 1 capsule by mouth daily at bedtime. HUMALOG KWIKPEN INSULIN 100 unit/mL Inject subcutaneously 20 units breakfast, 20 units lunch, 20 units dinner plus sliding scale up to 82 units daily. Dispense 75 mL for a 90 day supply. Insulin Wykoff, Disposable, (DROPLET PEN NEEDLE) 31 gauge x 16 Use 4 PEN NEEDLES to inject MEDICATION subcutaneously daily zonisamide (ZONEGRAN) 25 mg capsule Take 1 capsule by mouth once daily. multivitamin tablet Take 1 tablet by mouth once daily. peg 3350-Electrolytes (GOLYTELY) 236-22.74-6.74 -5.86 gram suspension Take 4,000 mL by mouth one time only for 1 dose. Refer to printed prep instructions from your provider. methylphenidate CD (METADATE CD) 20 mg biphasic capsule Take 1 capsule by mouth once daily for 30 days. No current facility-administered medications for this visit. ALLERGIES: Topamax [Topiramate], Celexa [Citalopram Hydrobromide], Effexor [Venlafaxine Analogues], Reglan [Metoclopramide Hcl], and Zoloft [Sertraline Hcl] PAST MEDICAL HISTORY Diagnosis Date Abnormal finding on MRI of brain 12/11/2024 Possible pituitary adenoma. 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 Elevated antinuclear antibody (JALEEL) level 03/31/2014 Family history of malignant neoplasm of gastrointestinal tract 03/31/2014 Fatty liver 10/28/2024 US: 10/2024 ISABELLA (generalized anxiety disorder) 06/22/2020 GERD without esophagitis 09/26/2018 Gynecomastia, male 12/03/2024 Right breast Hepatic steatosis 10/25/2024 per U/S Hiatal hernia 03/31/2014 History of COVID-19 09/23/20232021, 09/2023 Hx of colonic polyp 03/31/2014 Needs next colonoscopy 08/2022 Lump 11/16/2019 benign left palm Major depressive disorder with single episode, in partial remission 09/26/2018 Migraine without aura and without status migrainosus, not intractable 09/11/2015 Mood disorder 03/31/2014 Multiple thyroid nodules 02/27/[address] Lazaro 03/2018 Multiple thyroid nodules 02/27/2018 US 03/2020 per radiology no further f/u needed.. All benign Biopsy 03/[address] Lazaro. Benign. Obesity, Class II, BMI 35-39.9 10/21/2022 Obstructive sleep apnea syndrome 01/27/2017 doesnt wear machine Other joint derangement, not elsewhere classified, lower leg 03/25/2013 Primary insomnia 07/28/2020 QT prolongation 04/20/2021 Seen [facility] 04/19/2021: [place] to be benign and related to anti-depressants. No changes needed. TMJ (temporomandibular joint disorder) 03/31/2014 Right side Type 2 diabetes mellitus without complication, without long-term current use of insulin (HCC) 01/19/2017 Well adult exam 12/17/2014 Last done:11/16/2019 PAST SURGICAL HISTORY Procedure Laterality Date APPENDECTOMY HX 2004 ARTHROTOMY W/MENISCUS REPAIR KNEE Right 04/2021 COLONOSCOPY 06/2012 Dr. Corrigan +polyp, repeat 5 yrs COLONOSCOPY 08/30/2022 repeat in 5 years COLONOSCOPY FLX DX W/COLLJ SPEC WHEN PFRMD 08/16/2017 Colonoscopy, repeat 5 yrs, Dr. Bliss I&D ABSC SMPL OR SGL Left 03/10/2024 perirectal 2cm x 4 cm PAST SURGICAL HISTORY OF 2009 benign cysts: 1 from head and 2 from neck TONSILLECTOMY HX 1979 FAMILY HISTORY Problem Relation Age of Onset Colon Cancer Father 52 Coronary Artery Disease Father Coronary Artery Disease Mother 60's Hypertension Mother No Known Problems Brother No Known Problems Brother No Known Problems Brother Coronary Artery Disease Maternal Grandmother 60's Stroke Maternal Grandfather Colon Cancer Paternal Uncle 49 Alzheimer's Disease No Family History Prostate Cancer No Family History Breast Cancer No Family History Hyperlipidemia No Family History Kidney Disease No Family History Seizures No Family History Thyroid No Family History No Ocular Disease No Family History Social History Tobacco Use Smoking status: Never Smokeless tobacco: Never Vaping Use Vaping status: Never Used Substance Use Topics Alcohol use: Yes Comment: Rarely Drug use: No REVIEW OF SYMPTOMS: REVIEW OF SYSTEMS: General: The patient + fatigue, denies weight loss, denies weight gain, denies feeling hot, and feelings of cold. Eyes: The patient denies glaucoma, denies eye injury/surgery, + glasses or contacts. Ear/Nose/Throat: The patient denies allergies, denies hayfever, denies ear infections, and denies bloody noses. Cardiovascular: The patient denies chest pain, denies heart disease, denies high blood pressure, denies high cholesterol, and denies poor circulation. Respiratory: The patient denies tuberculosis, denies pneumonia, denies frequent cough, denies shortness of breath, and denies coughing up blood. Gastrointestinal: The patient denies difficulty swallowing, + acid reflux, denies ulcers, denies jaundice/hepatitis, denies gallbladder problems, denies vomiting, denies black or tarry stools, denies hemorrhoids, denies bleeding from rectum, + diverticulitis, denies constipation, denies diarrhea, denies loss of stool control, and denies hernias. Kidney/Bladder: The patient denies kidney stones, denies urine infections, and denies bloody urine. Skin: The patient denies a history of skin cancer, denies bleeding/changing moles, and denies a history of skin rash. Neurologic: The patient denies a history of epilepsy/convulsions, denies headaches, denies head/spinal injuries, and denies stroke/TIA. Psychiatric: The patient denies psychiatric medications, + depression, and denies voices. Endocrine: The patient denies thyroid disorders, + diabetes, and denies hormonal problems. Hematologic: The patient denies a history of bruising, denies bleeding, and + anemia. Infections: The patient denies a history of measles and mumps, denies rheumatic fever, and denies sexually transmitted diseases. Musculoskeletal: The patient denies back pain/injury, denies back problems, denies sciatica, + knee/foot trouble, denies arthritis, or denies gout. PHYSICAL EXAMINATION: General: The patient is 49 year old, male well nourished, well hydrated in no acute distress. The patient is oriented to time, place, and person. VITALS: Blood pressure 114/74, pulse 98, resp. rate 16, weight 125.4 kg (276 lb 6.4 oz), SpO2 96%. Body mass index is 35.49 kg/m . HEENT: Normal cephalic, ataumatic, pupils are equally round, sclera are anicteric, mucous membranes are moist, oropharynx is clear. Neck has no masses, asymmetry or lymphadenopathy. Respiratory: Clear to auscultation. Normal respiratory excursion and pattern. Cardiac: Examination is regular rate and rhythm. Normal S1/S2 Abdominal exam: Soft, nontender, with no palpable masses. No hepatosplenomegaly. No palpable hernias. Extremities: no clubbing, cyanosis or edema. No adenopathy. LABORATORY VALUES: As Noted RADIOLOGIC STUDIES: As Noted Assessment IMPRESSION: anemia, family history of colon cancer PLAN: I have reviewed my findings with the surgeon. Will plan for lower endoscopy. We discussed the risks and benefits of the planned endoscopy in terms understandable to the patient. I have informed the patient that complications can occur including failure to complete the endoscopy and perforation. Bianca had the opportunity to ask questions concerning the planned endoscopy. Bianca freely consents to surgery. I plan to use Golytely bowel preparation I have explained to the patient the difference between IV conscious sedation and MAC anesthesia - and I have offered either, according to the patient's wishes. I have explained that with IV conscious sedation there is no anesthesia provider available and therefore there is a limitation of the amount of IV medications that can be given and that the patient may wake up in the middle of the procedure and/or experience pain/discomfort during the procedure. Further discussion was done and the patient was given the opportunity to ask questions and all questions were answered. MAC anesthesia. Bianca was counseled that if there are changes in his/her medical condition, to let the office know if surgery should proceed. If there are changes in patient's medical condition from time of this encounter to the day of the procedure that preclude anesthesia, patient may have procedure cancelled for patient's safety. Diagnoses: (Z80.0) Family history of colon cancer (primary encounter diagnosis) (D64.9) Anemia, unspecified type Consultation requested by Kenyatta Castaneda PA-C for an opinion regarding anemia. My final recommendations will be communicated back to the requesting physician by way of shared Medical record or letter to requesting physician via US mail. Portions of this documentation were copied and pasted from previous office visit notes in order to provide a cohesive continuity of the history. The note has been reviewed and edited and updated as necessary. Nelda Quigley APRN.CIRCUIT COURT CLERK documented in this encounter [facility] 03-10-2025 Note HNO ID: [id number] Author: NELDA QUIGLEY APRN.CIRCUIT COURT CLERK Service: ? Author Type: Nurse Practitioner Type: Progress Notes Filed: 03/10/2025 09:21 Note Text: HISTORY AND PHYSICAL Bianca Saenz [place] : 1975 REFERRING PHYSICIAN: Kenyatta Castaneda [address] [facility] [address] CHIEF COMPLAINT: Patient presents with: low hgb: Low Hgb. SOB easy. Easily fatigued. PCP wants colonoscopy HPI: Bianca is a 49 year old male referred for endoscopy. Bianca notes anemia. Last HANDH 9.6 AND 31.6. Bianca notes abdominal pain. -over the last week has had low abdominal pain while having bm which passes after bm is finished Bianca denies diarrhea. Bianca denies constipation. Bianca notes a change in bowel habits. -used to have 2-3 bm a day, now going once Bianca denies melena. Bianca denies bright red blood per rectum. Bianca denies hemorrhoids. Bianca notes family history of colon issues. Father with colon cancer and 2 paternal uncles with colon cancer Bianca is scheduled for EGD for GERD and dysphasia with Dr. Bowman at [facility] on 04/04- she does not complete colonoscopies AND he notes he wants the procedures completed separately. Bianca notes hx of uncontrolled T2DM- recent weight loss. Last A1C was 10.5 He also notes getting fatigued easily- attributes this to his anemia. He denies CP, dizziness, passing out, recent over night stays in the hospital. Bianca has undergone prior endoscopy. Last colonoscopy was 08/[address] Bliss at [facility]. Sedation: Midazolam 7 mg IV, Fentanyl 100 micrograms IV Impression: - Diverticulosis in the sigmoid colon, in the descending colon, in the transverse colon and in the ascending colon. - Non-bleeding internal hemorrhoids. - No specimens collected. Current Outpatient Medications Medication Sig busPIRone (BUSPAR) 15 mg tablet Take one tab by mouth twice a day. metFORMIN (GLUCOPHAGE) 500 mg tablet TAKE 2 TABLETS BY MOUTH TWO TIMES A DAY WITH MEALS. dexmethylphenidate XR (FOCALIN XR) 20 mg biphasic capsule Take 1 capsule by mouth once daily for 30 days. DULoxetine (CYMBALTA) 60 mg capsule Take 1 capsule by mouth once daily. albuterol HFA (PROVENTIL HFA, VENTOLIN HFA) 90 mcg/actuation inhaler Inhale 2 Puffs as instructed three times a day. OLANZapine (ZYPREXA) 5 mg tablet Take 1 tablet by mouth daily at bedtime. DULoxetine (CYMBALTA) 30 mg capsule Take 1 capsule by mouth once daily. Blood-Glucose Sensor (FREESTYLE EVERT 3 SENSOR) agnes USE ONE SENSOR EVERY 14 DAY, IDDM, E11.9 sucralfate (CARAFATE) 1 gram tablet Take one tab with lunch and before bed. Fenofibrate 120 mg tab Take 1 tablet by mouth once daily. esomeprazole (NEXIUM) 40 mg capsule Take 1 capsule by mouth two times a day. atorvastatin (LIPITOR) 80 mg tablet Take 1 tablet by mouth once daily. doxepin capsule 10 mg Take 1 capsule by mouth daily at bedtime. HUMALOG KWIKPEN INSULIN 100 unit/mL Inject subcutaneously 20 units breakfast, 20 units lunch, 20 units dinner plus sliding scale up to 82 units daily. Dispense 75 mL for a 90 day supply. Insulin Wykoff, Disposable, (DROPLET PEN NEEDLE) 31 gauge x 12/22 Use 4 PEN NEEDLES to inject MEDICATION subcutaneously daily zonisamide (ZONEGRAN) 25 mg capsule Take 1 capsule by mouth once daily. multivitamin tablet Take 1 tablet by mouth once daily. peg 3350-Electrolytes (GOLYTELY) 236-22.74-6.74 -5.86 gram suspension Take 4,000 mL by mouth one time only for 1 dose. Refer to printed prep instructions from your provider. methylphenidate CD (METADATE CD) 20 mg biphasic capsule Take 1 capsule by mouth once daily for 30 days. No current facility-administered medications for this visit. ALLERGIES: Topamax [Topiramate], Celexa [Citalopram Hydrobromide], Effexor [Venlafaxine Analogues], Reglan [Metoclopramide Hcl], and Zoloft [Sertraline Hcl] PAST MEDICAL HISTORY Diagnosis Date Abnormal finding on MRI of brain 12/11/2024 Possible pituitary adenoma. 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 Elevated antinuclear antibody (JALEEL) level 03/31/2014 Family history of malignant neoplasm of gastrointestinal tract 03/31/2014 Fatty liver 10/28/2024 US: 10/2024 ISABELLA (generalized anxiety disorder) 06/22/2020 GERD without esophagitis 09/26/2018 Gynecomastia, male 12/03/2024 Right breast Hepatic steatosis 10/25/2024 per U/S Hiatal hernia 03/31/2014 History of COVID-19 09/23/20232021, 09/2023 (more content not included)... [facility] 03-07-2025 Telephone encounter Note Pt notified of Kenyatta's message. Pt verbalizes understanding. Pt states he is ok not having the procedures on the same day. Pt was assisted in transfer to schedule surgical consult. Carmelo Lopez LPN [facility] 03-07-2025 Miscellaneous Notes Pt notified of Kenyatta's message. Pt verbalizes understanding. Pt states he is ok not having the procedures on the same day. Pt was assisted in transfer to schedule surgical consult. Carmelo Lopez LPN I reached out to Dr. Bowman, she no longer does colonoscopies, but I think he should get one. I also still want him to see her for the EGD. But I will add a consult to gen surgery specific for colonoscopy. I'm not sure if it's possible for Dr. Bowman's office to coordinate a colonoscopy to be done during the same visit as her EGD. He may want to go to [facility] to see if this is possible though. Thanks. Kenyatta Castaneda PA-C Patient notified of results and provider's instructions. Patient verbalizes understanding. Patient does have EGD scheduled on 03/27/2025. Patient does not have a colonoscopy scheduled. Last Colonoscopy done 08/30/2022. Juhi Murillo RN Left message for patient to contact office. Tam Daugherty MA Let patient know that he is anemic. This is possibly contributing to his symptoms. Need additional labs and need to see gen surgery for anemia work up. Is he currently scheduled for EGD? Colonoscopy too? Kenyatta Castaneda PA-C documented in this encounter [facility] 03-07-2025 Telephone encounter Note I reached out to Dr. Bowman, she no longer does colonoscopies, but I think he should get one. I also still want him to see her for the EGD. But I will add a consult to [facility] surgery specific for colonoscopy. I'm not sure if it's possible for Dr. Bowman's office to coordinate a colonoscopy to be done during the same visit as her EGD. He may want to go to [facility] to see if this is possible though. Thanks. Kenyatta Castaneda PA-C [facility] 03-07-2025 Telephone encounter Note Patient notified of results and provider's instructions. Patient verbalizes understanding. Patient does have EGD scheduled on 03/27/2025. Patient does not have a colonoscopy scheduled. Last Colonoscopy done 08/30/2022. Juhi Murillo RN [facility] 03-07-2025 Telephone encounter Note Left message for patient to contact office. Tam Daugherty MA [facility] 03-07-2025 Telephone encounter Note Let patient know that he is anemic. This is possibly contributing to his symptoms. Need additional labs and need to see gen surgery for anemia work up. Is he currently scheduled for EGD? Colonoscopy too? Kenyatta Castaneda PA-C [facility] 03-06-2025 Instructions Kenyatta Castaneda PA-C - 03/06/2025 7:41 AM EDT - Hold off on your ADHD medication (Focalin) for 5-7 days and note whether your dizziness improves. If it does, do not restart and discuss an alternative ADHD medication with your provider. If dizziness persists, you may restart Focalin. - Have blood drawn for a complete blood count (CBC), basic metabolic panel (including sodium and potassium), and thyroid function tests. - Schedule an echocardiogram and a carotid artery ultrasound at our imaging department. - Wear the Zio patch (24-hour Holter monitor) for two weeks: call the [employer] [facility] [place] to confirm your insurance coverage, apply the patch per their instructions, and mail it back when prompted. Notify our office if you encounter any insurance issues. - Monitor your heart rate and dizziness closely. After you ve stopped Focalin and completed the tests above, let us know whether your symptoms have improved so we can determine next steps. documented in this encounter [facility] 03-06-2025 Note HNO ID: [id number] Author: KENYATTA CASTANEDA PA-C Service: ? Author Type: Physician [employer] Type: Progress Notes Filed: 03/06/2025 07:50 Note Text: Chief Complaint Patient presents with: Dizziness: X 1 week HPI Bianca Delarosa is a 49 year old male who presents here today for Above Complaints. Dizziness and Tachycardia: - Onset: Approximately one week ago. - Symptoms: Describes dizziness as a weird feeling, similar to being on a boat, accompanied by lightheadedness. - Triggers: Occurs when moving around the house or transitioning from sitting to standing; not present when lying down or turning head side to side. - Severity: Requires leaning on something or sitting down; no episodes of near-syncope. - Associated Symptoms: Noted tachycardia with heart rate reaching 120 bpm during minimal exertion (e.g., moving from kitchen to living room). - Monitoring: Uses a pulse oximeter at home; oxygen saturation consistently in the 90s. - Denies: chest pain, dyspnea, sinus issues, hearing problems, sore throat. - Edema: Mild, variable leg swelling; not atypical for Bianca. - Medication Changes: Recent change in ADHD medication from methylphenidate to Focalin approximately one month ago due to availability issues. - COVID-19: History of multiple COVID-19 infections. - Gastrointestinal Issues: Chronic, managed by the bariatric department. Last 3 Encounter Pulse Readings: Date: Pulse: 03/06/2025 94 02/06/2025 100 01/21/2025 88 Past medical history, appointments, medications, allergies reviewed. Previous Medical History PAST MEDICAL HISTORY Diagnosis Date Abnormal finding on MRI of brain 12/11/2024 Possible pituitary adenoma. 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 Elevated antinuclear antibody (JALEEL) level 03/31/2014 Family history of malignant neoplasm of gastrointestinal tract 03/31/2014 Fatty liver 10/28/2024 US: 10/2024 ISABELLA (generalized anxiety disorder) 06/22/2020 GERD without esophagitis 09/26/2018 Gynecomastia, male 12/03/2024 Right breast Hepatic steatosis 10/25/2024 per U/S Hiatal hernia 03/31/2014 History of COVID-19 09/23/20232021, 09/2023 Hx of colonic polyp 03/31/2014 Needs next colonoscopy 08/2022 Lump 11/16/2019 benign left palm Major depressive disorder with single episode, in partial remission 09/26/2018 Migraine without aura and without status migrainosus, not intractable 09/11/2015 Mood disorder 03/31/2014 Multiple thyroid nodules 02/27/[address] Lazaro 03/2018 Multiple thyroid nodules 02/27/2018 US 03/2020 per radiology no further f/u needed.. All benign Biopsy 03/[address] Lazaro. Benign. Obesity, Class II, BMI 35-39.9 10/21/2022 Obstructive sleep apnea syndrome 01/27/2017 doesnt wear machine Other joint derangement, not elsewhere classified, lower leg 03/25/2013 Primary insomnia 07/28/2020 QT prolongation 04/20/2021 Seen [facility] 04/19/2021: Retsof to be benign and related to anti-depressants. No changes needed. TMJ (temporomandibular joint disorder) 03/31/2014 Right side Type 2 diabetes mellitus without complication, without long-term current use of insulin (HCC) 01/19/2017 Well adult exam 12/17/2014 Last done:11/16/2019 Previous Surgical History PAST SURGICAL HISTORY Procedure Laterality Date APPENDECTOMY HX 2003 ARTHROTOMY W/MENISCUS REPAIR KNEE Right 04/2021 COLONOSCOPY 06/2012 Dr. Corrigan +polyp, repeat 5 yrs COLONOSCOPY 08/30/2022 repeat in 5 years COLONOSCOPY FLX DX W/COLLJ SPEC WHEN PFRMD 08/16/2017 Colonoscopy, repeat 5 yrs, Dr. Bliss IANDD ABSC SMPL OR SGL Left 03/10/2024 perirectal 2cm x 4 cm PAST SURGICAL HISTORY OF 2008 benign cysts: 1 from head and 2 from neck TONSILLECTOMY HX 1979 Family History FAMILY HISTORY Problem Relation Age of Onset Colon Cancer Father 52 Coronary Artery Disease Father Coronary Artery Disease Mother 60's Hypertension Mother No Known Problems Brother No Known Problems Brother No Known Problems Brother Coronary Artery Disease Maternal Grandmother 60's Stroke Maternal Grandfather Colon Cancer Paternal Uncle 49 Alzheimer's Disease No Family History Prostate Cancer No Family History Breast Cancer No Family History Hyperlipidemia No Family History Kidney Disease No Family History Seizures No Family History Thyroid No Family History No Ocular Disease No Family History Mariana (more content not included)... [facility] 03-06-2025 History of Present illness Narrative Chief Complaint Patient presents with: Dizziness: X 1 week HPI Bianca Delarosa is a 49 year old male who presents here today for Above Complaints. Dizziness and Tachycardia: - Onset: Approximately one week ago. - Symptoms: Describes dizziness as a weird feeling, similar to being on a boat, accompanied by lightheadedness. - Triggers: Occurs when moving around the house or transitioning from sitting to standing; not present when lying down or turning head side to side. - Severity: Requires leaning on something or sitting down; no episodes of near-syncope. - Associated Symptoms: Noted tachycardia with heart rate reaching 120 bpm during minimal exertion (e.g., moving from kitchen to living room). - Monitoring: Uses a pulse oximeter at home; oxygen saturation consistently in the 90s. - Denies: chest pain, dyspnea, sinus issues, hearing problems, sore throat. - Edema: Mild, variable leg swelling; not atypical for Bianca. - Medication Changes: Recent change in ADHD medication from methylphenidate to Focalin approximately one month ago due to availability issues. - COVID-19: History of multiple COVID-19 infections. - Gastrointestinal Issues: Chronic, managed by the bariatric department. Last 3 Encounter Pulse Readings: Date: Pulse: 03/06/2025 94 02/06/2025 100 01/21/2025 88 Past medical history, appointments, medications, allergies reviewed. Previous Medical History PAST MEDICAL HISTORY Diagnosis Date Abnormal finding on MRI of brain 12/11/2024 Possible pituitary adenoma. 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 Elevated antinuclear antibody (JALEEL) level 03/31/2014 Family history of malignant neoplasm of gastrointestinal tract 03/31/2014 Fatty liver 10/28/2024 US: 10/2024 ISABELLA (generalized anxiety disorder) 06/22/2020 GERD without esophagitis 09/26/2018 Gynecomastia, male 12/03/2024 Right breast Hepatic steatosis 10/25/2024 per U/S Hiatal hernia 03/31/2014 History of COVID-19 09/23/20232021, 09/2023 Hx of colonic polyp 03/31/2014 Needs next colonoscopy 08/2022 Lump 11/16/2019 benign left palm Major depressive disorder with single episode, in partial remission 09/26/2018 Migraine without aura and without status migrainosus, not intractable 09/11/2015 Mood disorder 03/31/2014 Multiple thyroid nodules 02/27/[address] Lazaro 03/2018 Multiple thyroid nodules 02/27/2018 US 03/2020 per radiology no further f/u needed.. All benign Biopsy 03/[address] Lazaro. Benign. Obesity, Class II, BMI 35-39.9 10/21/2022 Obstructive sleep apnea syndrome 01/27/2017 doesnt wear machine Other joint derangement, not elsewhere classified, lower leg 03/25/2013 Primary insomnia 07/28/2020 QT prolongation 04/20/2021 Seen [facility] 04/19/2021: Retsof to be benign and related to anti-depressants. No changes needed. TMJ (temporomandibular joint disorder) 03/31/2014 Right side Type 2 diabetes mellitus without complication, without long-term current use of insulin (HCC) 01/19/2017 Well adult exam 12/17/2014 Last done:11/16/2019 Previous Surgical History PAST SURGICAL HISTORY Procedure Laterality Date APPENDECTOMY HX 2004 ARTHROTOMY W/MENISCUS REPAIR KNEE Right 04/2021 COLONOSCOPY 06/2012 Dr. Corrigan +polyp, repeat 5 yrs COLONOSCOPY 08/30/2022 repeat in 5 years COLONOSCOPY FLX DX W/COLLJ SPEC WHEN PFRMD 08/16/2017 Colonoscopy, repeat 5 yrs, Dr. Bliss I&D ABSC SMPL OR SGL Left 03/10/2024 perirectal 2cm x 4 cm PAST SURGICAL HISTORY OF 2008 benign cysts: 1 from head and 2 from neck TONSILLECTOMY HX 1979 Family History FAMILY HISTORY Problem Relation Age of Onset Colon Cancer Father 52 Coronary Artery Disease Father Coronary Artery Disease Mother 60's Hypertension Mother No Known Problems Brother No Known Problems Brother No Known Problems Brother Coronary Artery Disease Maternal Grandmother 60's Stroke Maternal Grandfather Colon Cancer Paternal Uncle 49 Alzheimer's Disease No Family History Prostate Cancer No Family History Breast Cancer No Family History Hyperlipidemia No Family History Kidney Disease No Family History Seizures No Family History Thyroid No Family History No Ocular Disease No Family History Patient Allergies ALLERGIES Allergen Reactions Topamax [Topiramate] Mental Status Change Unable to remember anything Celexa [Citalopram * Other: See Comments uneffective Effexor [Venlafaxin* Other: See Comments Sexual side affect Reglan [Metoclopram* Unknown Zoloft [Sertraline * Other: See Comments drowsy Current Medications Current Outpatient Medications on File Prior to Visit Medication Sig metFORMIN (GLUCOPHAGE) 500 mg tablet TAKE 2 TABLETS BY MOUTH TWO TIMES A DAY WITH MEALS. dexmethylphenidate XR (FOCALIN XR) 20 mg biphasic capsule Take 1 capsule by mouth once daily for 30 days. DULoxetine (CYMBALTA) 60 mg capsule Take 1 capsule by mouth once daily. albuterol HFA (PROVENTIL HFA, VENTOLIN HFA) 90 mcg/actuation inhaler Inhale 2 Puffs as instructed three times a day. OLANZapine (ZYPREXA) 5 mg tablet Take 1 tablet by mouth daily at bedtime. DULoxetine (CYMBALTA) 30 mg capsule Take 1 capsule by mouth once daily. Blood-Glucose Sensor (FREESTYLE EVERT 3 SENSOR) agnes USE ONE SENSOR EVERY 14 DAY, IDDM, E11.9 sucralfate (CARAFATE) 1 gram tablet Take one tab with lunch and before bed. Fenofibrate 120 mg tab Take 1 tablet by mouth once daily. esomeprazole (NEXIUM) 40 mg capsule Take 1 capsule by mouth two times a day. atorvastatin (LIPITOR) 80 mg tablet Take 1 tablet by mouth once daily. busPIRone (BUSPAR) 15 mg tablet Take one tab by mouth twice a day. doxepin capsule 10 mg Take 1 capsule by mouth daily at bedtime. TRESIBA FLEXTOUCH U-100 100 unit/mL (3 mL) injection pen Inject 60 units subcutaneous daily at bedtime. Dispense 60 mL for 90 day supply. HUMALOG KWIKPEN INSULIN 100 unit/mL Inject subcutaneously 20 units breakfast, 20 units lunch, 20 units dinner plus sliding scale up to 82 units daily. Dispense 75 mL for a 90 day supply. Insulin Wykoff, Disposable, (DROPLET PEN NEEDLE) 31 gauge x 3/16 Use 4 PEN NEEDLES to inject MEDICATION subcutaneously daily zonisamide (ZONEGRAN) 25 mg capsule Take 1 capsule by mouth once daily. multivitamin tablet Take 1 tablet by mouth once daily. methylphenidate CD (METADATE CD) 20 mg biphasic capsule Take 1 capsule by mouth once daily for 30 days. No current facility-administered medications on file prior to visit. Social History Social History Tobacco Use Smoking status: Never Smokeless tobacco: Never Vaping Use Vaping status: Never Used Substance Use Topics Alcohol use: Yes Comment: Rarely Drug use: No Review of Symptoms REVIEW OF SYSTEMS SEE HPI EXAM: BP 126/82 (BP Site: Left Arm, BP Position: Sitting, BP Cuff Size: Large Adult) Pulse 94 Temp 36.1 C (97 F) Resp 18 Wt 126.1 kg (278 lb) SpO2 94% BMI 35.69 kg/m GENERAL: NAD, alert and oriented SKIN: unremarkable, no rash or skin lesions. HEAD: normocephalic EYES: PERRLA, EOMI, conjunctiva clear EARS: external ears normal, canals clear, TM's normal. NOSE/SINUSES: Nares normal. Septum midline. OROPHARYNX: lips, mucosa, and tongue normal, good dentition. No oral lesions noted. NECK: Supple, no lymphadenopathy, normal thyroid, no carotid bruits. LUNGS: Clear to auscultation bilaterally, no wheezes/rhonchi/rales. HEART: Regular rate and rhythm, no murmurs. No ectopy. EXTREMITIES: Normal, No deformities, No skin discoloration, No edema. NEURO: Awake, alert and oriented x3, cranial nerves II-XII grossly intact, normal gait, no involuntary motions Health Maintenance List Urine Albumin:Creatinine Ratio due on 08/11/2024 Dilated Retinal Exam due on 02/22/2025 Shingrix Vaccine(1 of 2) due on 12/30/2025 HbA1C due on 03/22/2025 LDL Cholesterol due on 12/20/2025 Diabetic Foot Exam due on 12/30/2025 Annual PCP Team Chronic Disease Visit due on 03/06/2026 Colorectal Cancer Screening due on 08/30/2027 Pneumococcal Vaccine: 50+(3 of 3 - PCV20 or PCV21) due on 12/06/2028 DTaP,Tdap,Td Vaccine(3 - Td or Tdap) due on 04/13/2031 Hepatitis B Vaccine Completed Influenza Vaccine Completed Covid-19 Vaccine Completed Hepatitis C Screening Discontinued HIV Screening Discontinued Data reviewed 03/06/25 0652 03/06/25 0725 03/06/25 0726 03/06/25 0727 BP: 126/82 Pulse: 94 Temp: 36.1 C (97 F) Resp: 18 SpO2: 94% Weight: 126.1 kg (278 lb) Orthostatic BP: 132/87 129/89 132/88 BP Position: Sitting Supine Standing Standing Orthostatic Pulse: 92 111 114 Assessment and Plan 1. Tachycardia (R00.0) 2. Lightheadedness (R42) - Symptoms of tachycardia and lightheadedness upon standing and moving around the house for the past week. No associated chest pain, shortness of breath, or syncope. No new medications except a recent change in ADHD medication to Focalin about a month ago. - Orthostatic vital signs show a pulse increase of 20 points upon standing, with an additional 3-point increase after standing for a longer period. Blood pressure remained stable. - Differential diagnosis includes POTS and potential side effects from Focalin. - Ordered CBC, BMP, and thyroid function tests to rule out dehydration, electrolyte imbalances, and anemia. - Ordered echocardiogram and carotid ultrasound to assess cardiac function and blood flow. - Ordered Zio patch Holter monitor for continuous cardiac rhythm monitoring for two weeks. - Discussed the possibility of a tilt table test if symptoms persist. - Advised patient to discontinue Focalin for a few days to a week to assess if symptoms improve. If symptoms resolve, further testing may not be necessary. If symptoms persist, patient may resume Focalin and continue with ordered tests. - Patient understands and agrees with the plan. Kenyatta Castaneda PA-C Recording using [employer] software for draft documentation of the visit was discussed with the patient/authorized senior customer service representative; all questions welcomed and answered. Patient/authorized senior customer service representative agreed to proceed documented in this encounter [facility] 02-24-2025 Note HNO ID: [id number] Author: VIKASH BOOTH MD Service: ? Author Type: Physician Type: Progress Notes Filed: 02/24/2025 07:39 Note Text: ORTHOPAEDIC SHOULDER AND ELBOW SERVICE HISTORY AND PHYSICAL EXAM REFERRING PROVIDER: Elizabeth Suárez [address] [facility] [address] CHIEF COMPLAINT: Bianca is a 49-year-old male presenting for evaluation of right shoulder pain and limited range of motion. PAIN EVALUATION 02/21/2025 1343 Pain Level: -- limited ROM Pain Location: Shoulder-Right Description: Sharp;Radiating radiates to elbow Frequency: Intermittent Intervention/Comfort measure: Exercise;Imagery;Heat;Cold;Reposit ion;Relaxation Comments: PT in the past Right Shoulder Pain and Limited Range of Motion: - Onset: Approximately one year ago. - Initial treatment included physical therapy, which improved range of motion but did not fully restore function; unable to throw a ball. - MRI ordered by previous physician revealed labral tearing; rotator cuff intact. - Referred to current provider for further evaluation. - Current symptoms include stiffness and sharp pain radiating down the arm when reaching behind, such as handing something to daughter in the backseat of a car. - Denies frequent use of pain medication, prefers to tolerate discomfort. PAST MEDICAL HISTORY: PAST MEDICAL HISTORY Diagnosis Date Abnormal finding on MRI of brain 12/11/2024 Possible pituitary adenoma. 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 Elevated antinuclear antibody (JALEEL) level 03/31/2014 Family history of malignant neoplasm of gastrointestinal tract 03/31/2014 Fatty liver 10/28/2024 US: 10/2024 ISABELLA (generalized anxiety disorder) 06/22/2020 GERD without esophagitis 09/26/2018 Gynecomastia, male 12/03/2024 Right breast Hepatic steatosis 10/25/2024 per U/S Hiatal hernia 03/31/2014 History of COVID-19 09/23/20232021, 09/2023 Hx of colonic polyp 03/31/2014 Needs next colonoscopy 08/2022 Lump 11/16/2019 benign left palm Major depressive disorder with single episode, in partial remission 09/26/2018 Migraine without aura and without status migrainosus, not intractable 09/11/2015 Mood disorder 03/31/2014 Multiple thyroid nodules 02/27/[address] Lazaro 03/2018 Multiple thyroid nodules 02/27/2018 US 03/2020 per radiology no further f/u needed.. All benign Biopsy 03/[address] Lazaro. Benign. Obesity, Class II, BMI 35-39.9 10/21/2022 Obstructive sleep apnea syndrome 01/27/2017 doesnt wear machine Other joint derangement, not elsewhere classified, lower leg 03/25/2013 Primary insomnia 07/28/2020 QT prolongation 04/20/2021 Seen [facility] 04/19/2021: Retsof to be benign and related to anti-depressants. No changes needed. TMJ (temporomandibular joint disorder) 03/31/2014 Right side Type 2 diabetes mellitus without complication, without long-term current use of insulin (HCC) 01/19/2017 Well adult exam 12/17/2014 Last done:11/16/2019 PAST SURGICAL HISTORY: PAST SURGICAL HISTORY Procedure Laterality Date APPENDECTOMY HX 2004 ARTHROTOMY W/MENISCUS REPAIR KNEE Right 04/2021 COLONOSCOPY 06/2012 Dr. Corrigan +polyp, repeat 5 yrs COLONOSCOPY 08/30/2022 repeat in 5 years COLONOSCOPY FLX DX W/COLLJ SPEC WHEN PFRMD 08/16/2017 Colonoscopy, repeat 5 yrs, Dr. Bliss IANDD ABSC SMPL OR SGL Left 03/10/2024 perirectal 2cm x 4 cm PAST SURGICAL HISTORY OF 2009 benign cysts: 1 from head and 2 from neck TONSILLECTOMY HX 1979 SOCIAL HISTORY: Social History Tobacco Use Smoking status: Never Smokeless tobacco: Never Vaping Use Vaping status: Never Used Substance Use Topics Alcohol use: Yes Comment: Rarely Drug use: No ALLERGIES: ALLERGIES Allergen Reactions Topamax [Topiramate] Mental Status Change Unable to remember anything Celexa [Citalopram * Other: See Comments uneffective Effexor [Venlafaxin* Other: See Comments Sexual side affect Reglan [Metoclopram* Unknown Zoloft [Sertraline * Other: See Comments drowsy MEDICATIONS: Current Outpatient Medications on File Prior to Visit Medication Sig metFORMIN (GLUCOPHAGE) 500 mg tablet TAKE 2 TABLETS BY MOUTH TWO TIMES A DAY WITH MEALS. dexmethylphenidate XR (FOCALIN XR) 20 mg biphasic capsule Take 1 capsule by mouth once daily for 30 days. methylphenidate CD (METADATE CD) 20 mg biphasic capsule Take 1 capsule by mouth once daily for (more content not included)... [facility] 02-24-2025 History of Present illness Narrative Images from the original note were not included. ORTHOPAEDIC SHOULDER & ELBOW SERVICE HISTORY & PHYSICAL EXAM REFERRING PROVIDER: Elizabeth Suárez [address] [place] [address] CHIEF COMPLAINT: Bianca is a 49-year-old male presenting for evaluation of right shoulder pain and limited range of motion. PAIN EVALUATION 02/21/2025 1343 Pain Level: -- limited ROM Pain Location: Shoulder-Right Description: Sharp;Radiating radiates to elbow Frequency: Intermittent Intervention/Comfort measure: Exercise;Imagery;Heat;Cold;Reposit ion;Relaxation Comments: PT in the past Right Shoulder Pain and Limited Range of Motion: - Onset: Approximately one year ago. - Initial treatment included physical therapy, which improved range of motion but did not fully restore function; unable to throw a ball. - MRI ordered by previous physician revealed labral tearing; rotator cuff intact. - Referred to current provider for further evaluation. - Current symptoms include stiffness and sharp pain radiating down the arm when reaching behind, such as handing something to daughter in the backseat of a car. - Denies frequent use of pain medication, prefers to tolerate discomfort. PAST MEDICAL HISTORY: PAST MEDICAL HISTORY Diagnosis Date Abnormal finding on MRI of brain 12/11/2024 Possible pituitary adenoma. 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 Elevated antinuclear antibody (JALEEL) level 03/31/2014 Family history of malignant neoplasm of gastrointestinal tract 03/31/2014 Fatty liver 10/28/2024 US: 10/2024 ISABELLA (generalized anxiety disorder) 06/22/2020 GERD without esophagitis 09/26/2018 Gynecomastia, male 12/03/2024 Right breast Hepatic steatosis 10/25/2024 per U/S Hiatal hernia 03/31/2014 History of COVID-19 09/23/20232021, 09/2023 Hx of colonic polyp 03/31/2014 Needs next colonoscopy 08/2022 Lump 11/16/2019 benign left palm Major depressive disorder with single episode, in partial remission 09/26/2018 Migraine without aura and without status migrainosus, not intractable 09/11/2015 Mood disorder 03/31/2014 Multiple thyroid nodules 02/27/[address] Lazaro 03/2018 Multiple thyroid nodules 02/27/2018 US 03/2020 per radiology no further f/u needed.. All benign Biopsy 03/[address] Lazaro. Benign. Obesity, Class II, BMI 35-39.9 10/21/2022 Obstructive sleep apnea syndrome 01/27/2017 doesnt wear machine Other joint derangement, not elsewhere classified, lower leg 03/25/2013 Primary insomnia 07/28/2020 QT prolongation 04/20/2021 Seen [facility] 04/19/2021: Retsof to be benign and related to anti-depressants. No changes needed. TMJ (temporomandibular joint disorder) 03/31/2014 Right side Type 2 diabetes mellitus without complication, without long-term current use of insulin (HCC) 01/19/2017 Well adult exam 12/17/2014 Last done:11/16/2019 PAST SURGICAL HISTORY: PAST SURGICAL HISTORY Procedure Laterality Date APPENDECTOMY HX 2004 ARTHROTOMY W/MENISCUS REPAIR KNEE Right 04/2021 COLONOSCOPY 06/2012 Dr. Corrigan +polyp, repeat 5 yrs COLONOSCOPY 08/30/2022 repeat in 5 years COLONOSCOPY FLX DX W/COLLJ SPEC WHEN PFRMD 08/16/2017 Colonoscopy, repeat 5 yrs, Dr. Bliss I&D ABSC SMPL OR SGL Left 03/10/2024 perirectal 2cm x 4 cm PAST SURGICAL HISTORY OF 2009 benign cysts: 1 from head and 2 from neck TONSILLECTOMY HX 1979 SOCIAL HISTORY: Social History Tobacco Use Smoking status: Never Smokeless tobacco: Never Vaping Use Vaping status: Never Used Substance Use Topics Alcohol use: Yes Comment: Rarely Drug use: No ALLERGIES: ALLERGIES Allergen Reactions Topamax [Topiramate] Mental Status Change Unable to remember anything Celexa [Citalopram * Other: See Comments uneffective Effexor [Venlafaxin* Other: See Comments Sexual side affect Reglan [Metoclopram* Unknown Zoloft [Sertraline * Other: See Comments drowsy MEDICATIONS: Current Outpatient Medications on File Prior to Visit Medication Sig metFORMIN (GLUCOPHAGE) 500 mg tablet TAKE 2 TABLETS BY MOUTH TWO TIMES A DAY WITH MEALS. dexmethylphenidate XR (FOCALIN XR) 20 mg biphasic capsule Take 1 capsule by mouth once daily for 30 days. methylphenidate CD (METADATE CD) 20 mg biphasic capsule Take 1 capsule by mouth once daily for 30 days. DULoxetine (CYMBALTA) 60 mg capsule Take 1 capsule by mouth once daily. albuterol HFA (PROVENTIL HFA, VENTOLIN HFA) 90 mcg/actuation inhaler Inhale 2 Puffs as instructed three times a day. OLANZapine (ZYPREXA) 5 mg tablet Take 1 tablet by mouth daily at bedtime. DULoxetine (CYMBALTA) 30 mg capsule Take 1 capsule by mouth once daily. Blood-Glucose Sensor ([employer]YLE EVERT 3 SENSOR) agnes USE ONE SENSOR EVERY 14 DAY, IDDM, E11.9 sucralfate (CARAFATE) 1 gram tablet Take one tab with lunch and before bed. Fenofibrate 120 mg tab Take 1 tablet by mouth once daily. esomeprazole (NEXIUM) 40 mg capsule Take 1 capsule by mouth two times a day. atorvastatin (LIPITOR) 80 mg tablet Take 1 tablet by mouth once daily. busPIRone (BUSPAR) 15 mg tablet Take one tab by mouth twice a day. doxepin capsule 10 mg Take 1 capsule by mouth daily at bedtime. TRESIBA FLEXTOUCH U-100 100 unit/mL (3 mL) injection pen Inject 60 units subcutaneous daily at bedtime. Dispense 60 mL for 90 day supply. HUMALOG KWIKPEN INSULIN 100 unit/mL Inject subcutaneously 20 units breakfast, 20 units lunch, 20 units dinner plus sliding scale up to 82 units daily. Dispense 75 mL for a 90 day supply. Insulin Wykoff, Disposable, (DROPLET PEN NEEDLE) 31 gauge x 3/16 Use 4 PEN NEEDLES to inject MEDICATION subcutaneously daily zonisamide (ZONEGRAN) 25 mg capsule Take 1 capsule by mouth once daily. multivitamin tablet Take 1 tablet by mouth once daily. No current facility-administered medications on file prior to visit. PHYSICAL EXAMINATION: There were no vitals taken for this visit. EXAM: Shoulder Musculoskeletal Exam Inspection Right Right shoulder inspection is normal. Palpation Right Crepitus: no crepitus Increased warmth: none Tenderness: none Range of Motion Right Active forward elevation: 100. Passive forward elevation: 100. Shoulder active abduction: 90. Passive abduction: 90. Active external rotation at side: 30. Passive external rotation at side: 30. Active external rotation in abduction: 40. Passive external rotation in abduction: 40. Active internal rotation in abduction: 20. Passive internal rotation in abduction: 20. Internal rotation: L1. Strength Right External rotation: 5/5. Internal rotation: 5/5. Abduction: 5/5. Neurovascular Right Right shoulder nerve sensation is normal. Scapula Right Position: normal Dyskinesia: none Winging: none General Constitutional: appears stated age Labored breathing: no Psychiatric: normal mood and affect and no acute distress Neurological: alert and oriented x3 Skin: intact IMAGING: Radiographs of the right shoulder were personally reviewed today. Date of exam 05/21/25. This is a 3-view shoulder exam, including AP, outlet, and axillary views. Glenohumeral joint: Normal alignment, no narrowing Bone: Normal Soft tissues: Normal Fracture: None My interpretation of the examination: Normal right shoulder I personally reviewed the MRI of the right shoulder dated 01/04/25 in the office today. My interpretation: No rotator cuff tear, mild labral tearing The Radiologist's interpretation is: IMPRESSION: Indirect findings suggesting adhesive capsulitis. Please correlate clinically Mild supraspinatus tendinosis ASSESSMENT AND PLAN: Encounter Diagnosis ICD-10-CM 1. Adhesive capsulitis of right shoulder M75.01 CONSULT TO PHYSICAL THERAPY 1. Adhesive capsulitis of right shoulder (M75.01) - Clinical examination confirms stiffness consistent with adhesive capsulitis; MRI shows labral tearing but intact rotator cuff. - Educated patient on the natural course of adhesive capsulitis, explaining that it typically resolves within 12 to 18 months. - Recommended daily stretching exercises. - Restarted physical therapy focusing on stretching to improve range of motion. - Discussed the option of a cortisone injection for pain relief if necessary, but patient declined at this time. - Advised use of Tylenol and ibuprofen for pain management as needed. - Informed patient that if no improvement is seen in 4 to 6 months, arthroscopic surgery may be considered. - Patient understands and agrees with the treatment plan. Will continue to monitor patient for Adhesive capsulitis of right shoulder, patient to schedule visit as per follow up discussed. MEDICAL DECISION-MAKING: I have assessed the patient, reviewed medical records to better understand the current condition as well as underlying risk factors, reviewed medical imaging, assessed appropriateness of available nonsurgical and surgical treatments. Vikash Booth MD Shoulder & Elbow Surgeon Department of Orthopaedic Surgery [facility] documented in this encounter [facility] 02-18-2025 Telephone encounter Note Images from the original note were not included. Most recent Endocrinology visit: Last encounter Visit on 02/06/2025 (with Jana Babcock) JULIO: 01/17/24--with Torres for diabetes NOV: 04/30/25-with Torres for diabetes 07/07/2023 in [facility] with TORRES MONACO for Type 2 diabetes mellitus without complication, without long-term current use of insulin (HCC) 10/18/2023 in [facility] with TORRES MONACO for Type 2 diabetes mellitus without complication, without long-term current use of insulin (HCC) 01/17/2024 in [facility] with TORRES MONACO for Type 2 diabetes mellitus without complication, without long-term current use of insulin (HCC) 02/06/[address] [facility] with JANA BABCOCK for Upcoming Endocrinology Appointments - Next 365 Days Visit Type Date Time Department EST LIZ PATIENT 04/30/2025 11:30 AM [facility] Requested Prescriptions Pending Prescriptions Disp Refills metFORMIN (GLUCOPHAGE) 500 mg tablet [Pharmacy Med Name: METFORMIN HCL 500 MG TABLET] 360 tablet 0 Sig: TAKE 2 TABLETS BY MOUTH TWO TIMES A DAY WITH MEALS. Latest Ref Rng & Units 12/20/2024 10/14/2024 05/21/2024 Hemoglobin A1C Hemoglobin A1C 4.3 - 5.6 % 10.5 11.7 11.9 Latest Ref Rng & Units 12/20/2024 11/22/2024 05/21/2024 TSH TSH 0.270 - 4.200 mIU/L 1.230 1.190 1.330 Free T3: None on file in the last 12 months Latest Ref Rng & Units 11/22/2024 09/04/2018 02/20/2018 FREE T4 Free T4 0.9 - 1.7 ng/dL 1.1 Free Thyroxine 0.44 - 1.61 ng/dL 0.69 0.75 Thyroglobulin: None on file in the last 12 months Vitamin D: None on file in the last 12 months Latest Ref Rng & Units 12/20/2024 05/21/2024 12/06/2023 Hematocrit Hematocrit 39.0 - 51.0 % 37.3 44.8 46.1 Latest Ref Rng & Units 12/20/2024 05/21/2024 12/06/2023 Creatinine Creatinine 0.73 - 1.22 mg/dL 0.68 0.73 0.79 Latest Ref Rng & Units 12/20/2024 05/21/2024 12/06/2023 eGFR EGFR >=60 mL/min/1.73m 113 112 110 Latest Ref Rng & Units 12/20/2024 05/21/2024 12/06/2023 Potassium Potassium 3.7 - 5.1 mmol/L 4.5 4.3 4.8 Latest Ref Rng & Units 11/22/2024 Testosterone Testosterone 193 - 824 ng/dL 166 Latest Ref Rng & Units 01/11/2025 IGF Insulin-like Growth Factor I 67 - 225 ng/mL 99 Latest Ref Rng & Units 01/11/2025 11/22/2024 Prolactin Prolactin 4.1 - 25.1 ng/mL 39.[address] [facility] 02-18-2025 Miscellaneous Notes Images from the original note were not included. Most recent Endocrinology visit: Last encounter Visit on 02/06/2025 (with Jana Babcock) JULIO: 01/17/24--with Torres for diabetes NOV: 04/30/25-with Torres for diabetes 07/07/2023 in [facility] with TORRES MONACO for Type 2 diabetes mellitus without complication, without long-term current use of insulin (HCC) 10/18/2023 in [facility] with TORRES MONACO for Type 2 diabetes mellitus without complication, without long-term current use of insulin (HCC) 01/17/2024 in [facility] with TORRES MONACO for Type 2 diabetes mellitus without complication, without long-term current use of insulin (HCC) 02/06/2025 in [facility] with JANA BABCOCK for Upcoming Endocrinology Appointments - Next 365 Days Visit Type Date Time Department EST LIZ PATIENT 04/30/2025 11:30 AM [facility] Requested Prescriptions Pending Prescriptions Disp Refills metFORMIN (GLUCOPHAGE) 500 mg tablet [Pharmacy Med Name: METFORMIN HCL 500 MG TABLET] 360 tablet 0 Sig: TAKE 2 TABLETS BY MOUTH TWO TIMES A DAY WITH MEALS. Latest Ref Rng & Units 12/20/2024 10/14/2024 05/21/2024 Hemoglobin A1C Hemoglobin A1C 4.3 - 5.6 % 10.5 11.7 11.9 Latest Ref Rng & Units 12/20/2024 11/22/2024 05/21/2024 TSH TSH 0.270 - 4.200 mIU/L 1.230 1.190 1.330 Free T3: None on file in the last 12 months Latest Ref Rng & Units 11/22/2024 09/04/2018 02/20/2018 FREE T4 Free T4 0.9 - 1.7 ng/dL 1.1 Free Thyroxine 0.44 - 1.61 ng/dL 0.69 0.75 Thyroglobulin: None on file in the last 12 months Vitamin D: None on file in the last 12 months Latest Ref Rng & Units 12/20/2024 05/21/2024 12/06/2023 Hematocrit Hematocrit 39.0 - 51.0 % 37.3 44.8 46.1 Latest Ref Rng & Units 12/20/2024 05/21/2024 12/06/2023 Creatinine Creatinine 0.73 - 1.22 mg/dL 0.68 0.73 0.79 Latest Ref Rng & Units 12/20/2024 05/21/2024 12/06/2023 eGFR EGFR >=60 mL/min/1.73m 113 112 110 Latest Ref Rng & Units 12/20/2024 05/21/2024 12/06/2023 Potassium Potassium 3.7 - 5.1 mmol/L 4.5 4.3 4.8 Latest Ref Rng & Units 11/22/2024 Testosterone Testosterone 193 - 824 ng/dL 166 Latest Ref Rng & Units 01/11/2025 IGF Insulin-like Growth Factor I 67 - 225 ng/mL 99 Latest Ref Rng & Units 01/11/2025 11/22/2024 Prolactin Prolactin 4.1 - 25.1 ng/mL 39.1 41.2 documented in this encounter [facility] 02-12-2025 Telephone encounter Note Insurance Verification Insurance Company: [employer] Provider Phone #: [phone] Agent: Nitesh Effective Date: 10/09/20 Call Reference #: [id number] EXCLUDED [facility] 02-12-2025 Miscellaneous Notes Insurance Verification Insurance Company: [employer] Provider Phone #: [phone] Agent: Nitesh Effective Date: 10/09/20 Call Reference #: [id number] EXCLUDED documented in this encounter [facility] 02-06-2025 Telephone encounter Note The following approved medication requests have been transmitted electronically. Requested Prescriptions Signed Prescriptions Disp Refills dexmethylphenidate XR (FOCALIN XR) 20 mg biphasic capsule 30 capsule 0 Sig: Take 1 capsule by mouth once daily for 30 days. Humberto Jackson MD PDMP website checked and validated. All prescriptions have been APPROPRIATELY filled. No suspicious activity was identified. 02/06/2025 by Humberto Jackson MD [facility] 02-06-2025 Miscellaneous Notes The following approved medication requests have been transmitted electronically. Requested Prescriptions Signed Prescriptions Disp Refills dexmethylphenidate XR (FOCALIN XR) 20 mg biphasic capsule 30 capsule 0 Sig: Take 1 capsule by mouth once daily for 30 days. Humberto Jackson MD PDMP website checked and validated. All prescriptions have been APPROPRIATELY filled. No suspicious activity was identified. 02/06/2025 by Humberto Jackson MD See [employer] message. Tia Ibarra MA documented in this encounter [facility] 02-06-2025 Telephone encounter Note See [employer] message. Tia Ibarra MA [facility] 02-06-2025 Note HNO ID: [id number] Author: JANA BABCOCK MD Service: ? Author Type: Physician Type: Progress Notes Filed: 03/03/2025 07:04 Note Text: Endocrinology/Initial Pituitary Assessment Note: Patient is being evaluated today via a Virtual Visit using a HIPPA compliant platform, zoom via [employer] It required patient-provider interaction for the medical decision making as documented below. Patient consented to treatment I have communicated my name and active licensure. The patient's identity and physical location were verified at the time of this visit. Either the patient or their legal senior customer service representative has been informed of the risks and benefits of -- and alternatives to -- treatment through a remote evaluation and consents to proceed with the evaluation remotely. History of Present Illness: Mr. Bianca Delarosa is a 49 year old male coming today for elevated prolactin Referred By: Consultation requested by Humberto Jackson for an opinion regarding Bianca Delarosa. My final recommendations will be communicated back to the requesting physician by way of shared Medical record or letter to requesting physician via US mail. He presented to his physician with a chief complaint of a palpable mass beneath his right nipple. Initial diagnostic workup included laboratory studies, which revealed elevated prolactin levels. Subsequent magnetic resonance imaging demonstrated an enlarged pituitary gland. The patient was referred to neurosurgery for consultation, and a follow-up MRI was performed in June. However, surgical intervention was not recommended at that time. A mammogram was obtained to evaluate the breast tissue, which yielded normal results. The patient's current medication regimen includes duloxetine (Cymbalta) and buspirone (Buspar). Patient Also described the following: Headaches:No, visual defects:No, increased thirst or urination:No,Nocturia: No, discharge from breast:No, painful breast: No, Breast swelling:No, increased head/hand or shoe size:No Darkening of skin/gums:No, salt craving:No, skin stretch gonzalez:No, easy bruising:No, excess hair growth over face/chin/chest/or abdomen:No,difficulty raising arms overhead, difficulty getting up from a seated position:No Previous Pituitary Surgery: No Previous Radiotherapy: No Answers submitted by the patient for this visit: Endocrine Review of Systems (Submitted on 02/06/2025) Fatigue: Yes Night sweats: Yes Recent unintentional weight change: No Skin Color Changes: No Post-Nasal Drip: No Thyroid Pain (lower neck): No Trouble Swallowing: No Vision Disturbance: No Chest pain: No Leg Swelling: No Blood Clots?: No Leg Pain while walking?: No Difficulty Breathing?: No Heartburn: Yes Nausea: No Vomiting: No Diarrhea: No Constipation: No Abdominal pain: No Muscle weakness: No Joint pain or stiffness: Yes Headaches: No Dizziness: No Numbness?: No Urgency to Urinate?: No Increased Urination: No Slow or Small Urine Stream?: No Flushing: No Hot Flashes?: No Increased Thirst: No Change in Body Hair?: No Cold Intolerance: No Heat Intolerance: No Past Medical History: PAST MEDICAL HISTORY Diagnosis Date Abnormal finding on MRI of brain 12/11/2024 Possible pituitary adenoma. 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 Elevated antinuclear antibody (JALEEL) level 03/31/2014 Family history of malignant neoplasm of gastrointestinal tract 03/31/2014 Fatty liver 10/28/2024 US: 10/2024 ISABELLA (generalized anxiety disorder) 06/22/2020 GERD without esophagitis 09/26/2018 Gynecomastia, male 12/03/2024 Right breast Hepatic steatosis 10/25/2024 per U/S Hiatal hernia 03/31/2014 History of COVID-19 09/23/20232021, 09/2023 Hx of colonic polyp 03/31/2014 Needs next colonoscopy 08/2022 Lump 11/16/2019 benign left palm Major depressive disorder with single episode, in partial remission 09/26/2018 Migraine without aura and without status migrainosus, not intractable 09/11/2015 Mood disorder 03/31/2014 Multiple thyroid nodules 02/27/[address] Lazaro 03/2018 Multiple thyroid nodules 02/27/2018 US 03/2020 per radiology no further f/u needed.. All benign Biopsy 03/[address] Lazaro. Benign. Obesity, Class II, BMI 35-39.9 10/21/2022 Obstructive sleep apnea syndrome 01/27/2017 doesnt wear machine Other joint derangement, not elsewhere classified, (more content not included)... [facility] 02-06-2025 History of Present illness Narrative Images from the original note were not included. Endocrinology/Initial Pituitary Assessment Note: Patient is being evaluated today via a Virtual Visit using a HIPPA compliant platform, zoom via [employer] It required patient-provider interaction for the medical decision making as documented below. Patient consented to treatment I have communicated my name and active licensure. The patient's identity and physical location were verified at the time of this visit. Either the patient or their legal senior customer service representative has been informed of the risks and benefits of -- and alternatives to -- treatment through a remote evaluation and consents to proceed with the evaluation remotely. History of Present Illness: Mr. Bianca Delarosa is a 49 year old male coming today for elevated prolactin Referred By: Consultation requested by Humberto Jackson for an opinion regarding Bianca Delarosa. My final recommendations will be communicated back to the requesting physician by way of shared Medical record or letter to requesting physician via [place] mail. He presented to his physician with a chief complaint of a palpable mass beneath his right nipple. Initial diagnostic workup included laboratory studies, which revealed elevated prolactin levels. Subsequent magnetic resonance imaging demonstrated an enlarged pituitary gland. The patient was referred to neurosurgery for consultation, and a follow-up MRI was performed in June. However, surgical intervention was not recommended at that time. A mammogram was obtained to evaluate the breast tissue, which yielded normal results. The patient's current medication regimen includes duloxetine (Cymbalta) and buspirone (Buspar). Patient Also described the following: Headaches:No, visual defects:No, increased thirst or urination:No,Nocturia: No, discharge from breast:No, painful breast: No, Breast swelling:No, increased head/hand or shoe size:No Darkening of skin/gums:No, salt craving:No, skin stretch gonzalez:No, easy bruising:No, excess hair growth over face/chin/chest/or abdomen:No,difficulty raising arms overhead, difficulty getting up from a seated position:No Previous Pituitary Surgery: No Previous Radiotherapy: No Answers submitted by the patient for this visit: Endocrine Review of Systems (Submitted on 02/06/2025) Fatigue: Yes Night sweats: Yes Recent unintentional weight change: No Skin Color Changes: No Post-Nasal Drip: No Thyroid Pain (lower neck): No Trouble Swallowing: No Vision Disturbance: No Chest pain: No Leg Swelling: No Blood Clots?: No Leg Pain while walking?: No Difficulty Breathing?: No Heartburn: Yes Nausea: No Vomiting: No Diarrhea: No Constipation: No Abdominal pain: No Muscle weakness: No Joint pain or stiffness: Yes Headaches: No Dizziness: No Numbness?: No Urgency to Urinate?: No Increased Urination: No Slow or Small Urine Stream?: No Flushing: No Hot Flashes?: No Increased Thirst: No Change in Body Hair?: No Cold Intolerance: No Heat Intolerance: No Past Medical History: PAST MEDICAL HISTORY Diagnosis Date Abnormal finding on MRI of brain 12/11/2024 Possible pituitary adenoma. 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 Elevated antinuclear antibody (JALEEL) level 03/31/2014 Family history of malignant neoplasm of gastrointestinal tract 03/31/2014 Fatty liver 10/28/2024 US: 10/2024 ISABELLA (generalized anxiety disorder) 06/22/2020 GERD without esophagitis 09/26/2018 Gynecomastia, male 12/03/2024 Right breast Hepatic steatosis 10/25/2024 per U/S Hiatal hernia 03/31/2014 History of COVID-19 09/23/20232021, 09/2023 Hx of colonic polyp 03/31/2014 Needs next colonoscopy 08/2022 Lump 11/16/2019 benign left palm Major depressive disorder with single episode, in partial remission 09/26/2018 Migraine without aura and without status migrainosus, not intractable 09/11/2015 Mood disorder 03/31/2014 Multiple thyroid nodules 02/27/[address] Lazaro 03/2018 Multiple thyroid nodules 02/27/2018 US 03/2020 per radiology no further f/u needed.. All benign Biopsy 03/[address] Lazaro. Benign. Obesity, Class II, BMI 35-39.9 10/21/2022 Obstructive sleep apnea syndrome 01/27/2017 doesnt wear machine Other joint derangement, not elsewhere classified, lower leg 03/25/2013 Primary insomnia 07/28/2020 QT prolongation 04/20/2021 Seen [facility] 04/19/2021: Retsof to be benign and related to anti-depressants. No changes needed. TMJ (temporomandibular joint disorder) 03/31/2014 Right side Type 2 diabetes mellitus without complication, without long-term current use of insulin (HCC) 01/19/2017 Well adult exam 12/17/2014 Last done:11/16/2019 Surgical History: PAST SURGICAL HISTORY Procedure Laterality Date APPENDECTOMY HX 2004 ARTHROTOMY W/MENISCUS REPAIR KNEE Right 04/2021 COLONOSCOPY 06/2012 Dr. Corrigan +polyp, repeat 5 yrs COLONOSCOPY 08/30/2022 repeat in 5 years COLONOSCOPY FLX DX W/COLLJ SPEC WHEN PFRMD 08/16/2017 Colonoscopy, repeat 5 yrs, Dr. Bliss I&D ABSC SMPL OR SGL Left 03/10/2024 perirectal 2cm x 4 cm PAST SURGICAL HISTORY OF 2008 benign cysts: 1 from head and 2 from neck TONSILLECTOMY HX 1979 Family Medical History: FAMILY HISTORY Problem Relation Age of Onset Colon Cancer Father 52 Coronary Artery Disease Father Coronary Artery Disease Mother 60's Hypertension Mother No Known Problems Brother No Known Problems Brother No Known Problems Brother Coronary Artery Disease Maternal Grandmother 60's Stroke Maternal Grandfather Colon Cancer Paternal Uncle 49 Alzheimer's Disease No Family History Prostate Cancer No Family History Breast Cancer No Family History Hyperlipidemia No Family History Kidney Disease No Family History Seizures No Family History Thyroid No Family History No Ocular Disease No Family History Social History: Social History Tobacco Use Smoking status: Never Smokeless tobacco: Never Vaping Use Vaping status: Never Used Substance Use Topics Alcohol use: Yes Comment: Rarely Drug use: No Allergies: ALLERGIES Allergen Reactions Topamax [Topiramate] Mental Status Change Unable to remember anything Celexa [Citalopram * Other: See Comments uneffective Effexor [Venlafaxin* Other: See Comments Sexual side affect Reglan [Metoclopram* Unknown Zoloft [Sertraline * Other: See Comments drowsy Current medications: Current Outpatient Medications Medication Sig methylphenidate CD (METADATE CD) 20 mg biphasic capsule Take 1 capsule by mouth once daily for 30 days. metFORMIN (GLUCOPHAGE) 500 mg tablet Take 2 tablets by mouth two times a day with meals. DULoxetine (CYMBALTA) 60 mg capsule Take 1 capsule by mouth once daily. albuterol HFA (PROVENTIL HFA, VENTOLIN HFA) 90 mcg/actuation inhaler Inhale 2 Puffs as instructed three times a day. OLANZapine (ZYPREXA) 5 mg tablet Take 1 tablet by mouth daily at bedtime. methylphenidate LA (RITALIN LA) 20 mg biphasic capsule Take 1 capsule by mouth once daily for 30 days. DULoxetine (CYMBALTA) 30 mg capsule Take 1 capsule by mouth once daily. Blood-Glucose Sensor ([employer]STYLE EVERT 3 SENSOR) agnes USE ONE SENSOR EVERY 14 DAY, IDDM, E11.9 sucralfate (CARAFATE) 1 gram tablet Take one tab with lunch and before bed. Fenofibrate 120 mg tab Take 1 tablet by mouth once daily. esomeprazole (NEXIUM) 40 mg capsule Take 1 capsule by mouth two times a day. atorvastatin (LIPITOR) 80 mg tablet Take 1 tablet by mouth once daily. busPIRone (BUSPAR) 15 mg tablet Take one tab by mouth twice a day. doxepin capsule 10 mg Take 1 capsule by mouth daily at bedtime. TRESIBA FLEXTOUCH U-100 100 unit/mL (3 mL) injection pen Inject 60 units subcutaneous daily at bedtime. Dispense 60 mL for 90 day supply. HUMALOG KWIKPEN INSULIN 100 unit/mL Inject subcutaneously 20 units breakfast, 20 units lunch, 20 units dinner plus sliding scale up to 82 units daily. Dispense 75 mL for a 90 day supply. Insulin Wykoff, Disposable, (DROPLET PEN NEEDLE) 31 gauge x 3/16 Use 4 PEN NEEDLES to inject MEDICATION subcutaneously daily zonisamide (ZONEGRAN) 25 mg capsule Take 1 capsule by mouth once daily. multivitamin tablet Take 1 tablet by mouth once daily. No current facility-administered medications for this visit. Previous laboratory results: Latest Ref Rng 11/22/2024 12/20/2024 01/11/2025 Insulin-like Growth Factor I 67 - 225 ng/mL 99 IGF-1 z-score -2.0 - 2.0 -1.2 LH 1.7 - 8.6 mIU/mL 3.7 FSH 1.5 - 12.4 mIU/mL 7.2 Testosterone 193 - 824 ng/dL 166 (L) Free T4 0.9 - 1.7 ng/dL 1.1 TSH 0.270 - 4.200 mIU/L 1.190 1.230 Prolactin 4.1 - 25.1 ng/mL 41.2 (H) 39.1 (H) ACTH 7.2 - 63.3 pg/mL 35.5 DATE OF EXAM: Dec 11 2024 10:59AM [facility] 0295 - MRI BRAIN WO/W IVCON Clinical indication: Gynecomastia and low testosterone. Comparison: None. Findings: Examination is focused on the pituitary gland. No acute infarct. Imaged brain parenchyma demonstrates no gross mass effect, midline shift, or hydrocephalus. Minimal nonspecific white matter change. Skull base and extra cranial soft tissues are unremarkable. Cavernous sinus and Meckel's cave are normal bilaterally. No abnormal enhancement following contrast administration. Convex upper margin of the pituitary gland which measures maximum craniocaudal dimension of 8 mm. Homogeneous enhancement. Impression: Convex upper margin of the pituitary gland could reflect an underlying lesion/adenoma or pituitary hyperplasia. Franchise Specialist: GORGE Transcribe Date/Time: Dec 11 2024 11:13A Dictated by : DAVID FAY MD ASSESSMENT/PLAN: 49-year-old male here for evaluation of a prominent pituitary gland and elevated prolactin in the setting of being on BuSpar and Cymbalta I independently reviewed the MRI from December 11, 2024 and it shows Convex upper margin of the pituitary gland which measures maximum craniocaudal dimension of 8 mm. Homogeneous enhancement. Breast lump still present but mammogram was normal. More than likely the mild elevation of prolactin was likely secondary to medication side effect as he is on BuSpar and Cymbalta which have been reported to cause mild elevations of prolactin The pituitary gland can display variations in size and shape across different age and gender populations. Physiological hypertrophy of the pituitary gland evidenced by a pituitary height of more than 9 mm may be observed during puberty, , young woman and after menopause. Pathological pituitary hypertrophy may occur in long-standing untreated end organ insufficiency with loss of negative feedback as can be seen in primary hypothyroidism, primary hypogonadism, hypothalamic or neuroendocrine tumours secreting excess trophic hormones including growth hormone releasing hormone, corticotropin releasing hormone and in inflammatory or infiltrative diseases (lymphocytic and granulomatous hypophysitis, sarcoidosis, haemochromatosis, amyloidosis, Langerhans cell histiocytosis, Vazquez s granulomatosis), infective (tuberculosis) and neoplastic (germinoma, lymphoma, leukaemia, metastatic carcinoma) disorders. A pituitary biopsy facilitating a tissue diagnosis remains elusive in routine clinical practice, the diagnosis of pituitary hypertrophy is largely [id number]. Thus, pituitary enlargement (pituitary height >=9?mm, or greater than that predicted by age, gender and ethnicity matched values, when available) with a normal hormonal assessment (absence of hyperprolactinaemia or diabetes insipidus in particular) and gland homogeneity on MRI (plain and contrast) with a conspicuous posterior pituitary bright spot should also be considered as normal pituitary hypertrophy to avoid therapeutic misadventures. Diagnoses for today's visit: (E23.6) Pituitary gland enlarged (HCC) (primary encounter diagnosis) (N62) Gynecomastia, male (R79.89) Elevated prolactin level (R90.89) Abnormal finding on MRI of brain (N62) Gynecomastia PLAN: I will be happy to review his dedicated pituitary MRI which neurosurgery recommended he obtain in June 2025 Then I would recommend a repeat MRI 1 year Call in 6 months to make your follow up visit. Call [facility] Appointments [phone] to make follow up Endocrinology visit in 6 month. Once you have your visit scheduled, please either call OR send me a mychart message and I will place the orders that you will need to have done PRIOR to your appointment in 1 year. All the patient`s questions were answered. The patient expressed understanding of all the information relayed and has agreed to this plan. I spent a total of 60 minutes on the date of the service which included preparing to see the patient, [id number] patient care, completing clinical documentation, obtaining and/or reviewing separately obtained history, performing a medically appropriate examination, counseling and educating the patient/family/caregiver, ordering medications, tests, or procedures, communicating with other HCPs (not separately reported), independently interpreting results (not separately reported), communicating results to the patient/family/caregiver and care coordination (not separately reported). SIGNATURE: Jana Babcock MD DATE of SERVICE: February 06, 2025 TIME of SERVICE: 2:22 PM documented in this encounter [facility] 02-06-2025 Note HNO ID: [id number] Author: CIRO FARMER RN Service: ? Author Type: Nurse Clinician Type: Progress Notes Filed: 02/06/2025 08:59 Note Text: Patient given written information about manometry, EGD and Patino pH probe and the prep instructions. Verbally discussed and reviewed the information with the patient. All of patient's questions were answered. Ciro Farmer RN [facility] 02-06-2025 History of Present illness Narrative Patient given written information about manometry, EGD and Patino pH probe and the prep instructions. Verbally discussed and reviewed the information with the patient. All of patient's questions were answered. Ciro Farmer RN SURGICAL SERVICES HISTORY AND PHYSICAL EXAMINATION SERVICE DATE: 02/06/2025 SERVICE TIME: 8:02 AM PRIMARY CARE PHYSICIAN: Humberto Jackson MD SUBJECTIVE CHIEF COMPLAINT: heartburn HISTORY OF PRESENT ILLNESS: Mr. Delarosa is a 49 year old male with a PMH of ADD, type 2 diabetes (metformin, Humalog), HLD, NAFLD, MIKE, GERD who presents for surgical consultation. Surgical consultation was requested by the patient's referring physician, Dr. Humberto Jackson. A copy of this consultation note will be provided to the requesting physician(s) by way of shared medical record or letter via US mail. The patient reports that he has had heartburn/reflux symptoms for many years - at least 10 years for which he has been on Nexium both OTC and prescription. However, in the last few months he has noticed increased malodorous belching and in the last few weeks he has noticed nocturnal regurgitation. And in the last month he has noticed dysphagia when drinking and eating solids at the same meal - happens in greater than 50% of meals. Workkup: - RUQ US 10/2024: hepatic steatosis - CT Chest (09/23/23): unremarkable Social: denies x 3. Rare ETOH - 1 to 2 glasses of wine per month PSHx: appy, tonsillectomy, arthroscopy PAST MEDICAL HISTORY: PAST MEDICAL HISTORY Diagnosis Date Abnormal finding on MRI of brain 12/11/2024 Possible pituitary adenoma. 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 Elevated antinuclear antibody (JALEEL) level 03/31/2014 Family history of malignant neoplasm of gastrointestinal tract 03/31/2014 Fatty liver 10/28/2024 US: 10/2024 ISABELLA (generalized anxiety disorder) 06/22/2020 GERD without esophagitis 09/26/2018 Gynecomastia, male 12/03/2024 Right breast Hepatic steatosis 10/25/2024 per U/S Hiatal hernia 03/31/2014 History of COVID-19 09/23/20232021, 09/2023 Hx of colonic polyp 03/31/2014 Needs next colonoscopy 08/2022 Lump 11/16/2019 benign left palm Major depressive disorder with single episode, in partial remission 09/26/2018 Migraine without aura and without status migrainosus, not intractable 09/11/2015 Mood disorder 03/31/2014 Multiple thyroid nodules 02/27/[address] Lazaro 03/2018 Multiple thyroid nodules 02/27/2018 US 03/2020 per radiology no further f/u needed.. All benign Biopsy 03/2018 Dr. Lazaro. Benign. Obesity, Class II, BMI 35-39.9 10/21/2022 Obstructive sleep apnea syndrome 01/27/2017 doesnt wear machine Other joint derangement, not elsewhere classified, lower leg 03/25/2013 Primary insomnia 07/28/2020 QT prolongation 04/20/2021 Seen [facility] 04/19/2021: Retsof to be benign and related to anti-depressants. No changes needed. TMJ (temporomandibular joint disorder) 03/31/2014 Right side Type 2 diabetes mellitus without complication, without long-term current use of insulin (HCC) 01/19/2017 Well adult exam 12/17/2014 Last done:11/16/2019 PAST SURGICAL HISTORY: PAST SURGICAL HISTORY Procedure Laterality Date APPENDECTOMY HX 2003 ARTHROTOMY W/MENISCUS REPAIR KNEE Right 04/2021 COLONOSCOPY 06/2012 Dr. Corrigan +polyp, repeat 5 yrs COLONOSCOPY 08/30/2022 repeat in 5 years COLONOSCOPY FLX DX W/COLLJ SPEC WHEN PFRMD 08/16/2017 Colonoscopy, repeat 5 yrs, Dr. Bliss I&D ABSC SMPL OR SGL Left 03/10/2024 perirectal 2cm x 4 cm PAST SURGICAL HISTORY OF 2009 benign cysts: 1 from head and 2 from neck TONSILLECTOMY HX 1979 FAMILY HISTORY: FAMILY HISTORY Problem Relation Age of Onset Colon Cancer Father 52 Coronary Artery Disease Father Coronary Artery Disease Mother 60's Hypertension Mother No Known Problems Brother No Known Problems Brother No Known Problems Brother Coronary Artery Disease Maternal Grandmother 60's Stroke Maternal Grandfather Colon Cancer Paternal Uncle 49 Alzheimer's Disease No Family History Prostate Cancer No Family History Breast Cancer No Family History Hyperlipidemia No Family History Kidney Disease No Family History Seizures No Family History Thyroid No Family History No Ocular Disease No Family History SOCIAL HISTORY: Social History Tobacco Use Smoking status: Never Smokeless tobacco: Never Vaping Use Vaping status: Never Used Substance Use Topics Alcohol use: Yes Comment: Rarely Drug use: No MEDICATIONS: Current Outpatient Medications Medication Sig methylphenidate CD (METADATE CD) 20 mg biphasic capsule Take 1 capsule by mouth once daily for 30 days. metFORMIN (GLUCOPHAGE) 500 mg tablet Take 2 tablets by mouth two times a day with meals. DULoxetine (CYMBALTA) 60 mg capsule Take 1 capsule by mouth once daily. albuterol HFA (PROVENTIL HFA, VENTOLIN HFA) 90 mcg/actuation inhaler Inhale 2 Puffs as instructed three times a day. OLANZapine (ZYPREXA) 5 mg tablet Take 1 tablet by mouth daily at bedtime. DULoxetine (CYMBALTA) 30 mg capsule Take 1 capsule by mouth once daily. Blood-Glucose Sensor (FREESTYLE EVERT 3 SENSOR) agnes USE ONE SENSOR EVERY 14 DAY, IDDM, E11.9 sucralfate (CARAFATE) 1 gram tablet Take one tab with lunch and before bed. Fenofibrate 120 mg tab Take 1 tablet by mouth once daily. esomeprazole (NEXIUM) 40 mg capsule Take 1 capsule by mouth two times a day. atorvastatin (LIPITOR) 80 mg tablet Take 1 tablet by mouth once daily. busPIRone (BUSPAR) 15 mg tablet Take one tab by mouth twice a day. doxepin capsule 10 mg Take 1 capsule by mouth daily at bedtime. TRESIBA FLEXTOUCH U-100 100 unit/mL (3 mL) injection pen Inject 60 units subcutaneous daily at bedtime. Dispense 60 mL for 90 day supply. HUMALOG KWIKPEN INSULIN 100 unit/mL Inject subcutaneously 20 units breakfast, 20 units lunch, 20 units dinner plus sliding scale up to 82 units daily. Dispense 75 mL for a 90 day supply. Insulin Wykoff, Disposable, (DROPLET PEN NEEDLE) 31 gauge x 3/16 Use 4 PEN NEEDLES to inject MEDICATION subcutaneously daily zonisamide (ZONEGRAN) 25 mg capsule Take 1 capsule by mouth once daily. multivitamin tablet Take 1 tablet by mouth once daily. methylphenidate LA (RITALIN LA) 20 mg biphasic capsule Take 1 capsule by mouth once daily for 30 days. No current facility-administered medications for this visit. ALLERGIES: ALLERGIES Allergen Reactions Topamax [Topiramate] Mental Status Change Unable to remember anything Celexa [Citalopram * Other: See Comments uneffective Effexor [Venlafaxin* Other: See Comments Sexual side affect Reglan [Metoclopram* Unknown Zoloft [Sertraline * Other: See Comments drowsy COMPLETE REVIEW OF SYSTEMS: Review of Systems Constitutional: Negative for chills, diaphoresis, fever and malaise/fatigue. HENT: Negative for congestion, hearing loss, nosebleeds, sinus pain, sore throat and tinnitus. Eyes: Negative for blurred vision, double vision, pain and redness. Respiratory: Negative for cough, hemoptysis, sputum production, shortness of breath and wheezing. Cardiovascular: Negative for chest pain, palpitations, orthopnea, leg swelling and PND. Gastrointestinal: Positive for heartburn and vomiting (regurgitation). Negative for abdominal pain, blood in stool, constipation, diarrhea and nausea. Genitourinary: Negative for dysuria, frequency, hematuria and urgency. Musculoskeletal: Negative for back pain, falls, joint pain, myalgias and neck pain. Skin: Negative for itching and rash. Neurological: Positive for headaches. Negative for dizziness, speech change, focal weakness, seizures, loss of consciousness and weakness. Endo/Heme/Allergies: Does not bruise/bleed easily. Psychiatric/Behavioral: Negative for depression, hallucinations, memory loss, substance abuse and suicidal ideas. The patient is not nervous/anxious and does not have insomnia. OBJECTIVE PHYSICAL EXAM: BP 125/84 Pulse 100 Ht 6' 2 (1.88m) Wt 288 lb (130.6kg) SpO2 96% BMI 36.96 kg/(m^2). Physical Exam Vitals reviewed. Constitutional: Appearance: Normal appearance. He is obese. HENT: Head: Normocephalic and atraumatic. Nose: Nose normal. Eyes: General: No scleral icterus. Extraocular Movements: Extraocular movements intact. Conjunctiva/sclera: Conjunctivae normal. Pupils: Pupils are equal, round, and reactive to light. Cardiovascular: Rate and Rhythm: Normal rate. Pulmonary: Effort: Pulmonary effort is normal. No respiratory distress. Skin: General: Skin is warm and dry. Coloration: Skin is not jaundiced or pale. Neurological: General: No focal deficit present. Mental Status: He is alert and oriented to person, place, and time. Psychiatric: Mood and Affect: Mood normal. Behavior: Behavior normal. DATA: Diagnostic tests reviewed for today's visit: EMR reviewed Plan ASSESSMENT AND PLAN Bianca Delarosa is a 49 year old male with a PMH as noted above who presents with severe GERD. ASSESSMENT/PLAN: 1. Gastroesophageal reflux disease, unspecified whether esophagitis present - ICD9: 530.81, ICD10: K21.9 (primary diagnosis) - Discussed lifestyle modifications including losing weight, limiting caffeine, no meals three hours before sleep, and head of bed elevation - Continue treatment with Nexium 40 mg BID and Carafate - stop 5 days prior to EGD/PATINO - Setup for EGD - Setup for Upper GI Series with Follow Through - XR UPPER GI ROUTINE DOUBLE CONTRAST/AIR - EGD - THERAPEUTIC, EUS, OR TUBE INTERVENTIONS 2. Class 2 severe obesity with serious comorbidity and body mass index (BMI) of 36.0 to 36.9 in adult, unspecified obesity type (HCC) - ICD9: 278.01, V85.36, ICD10: E66.812, Z68.36, E66.01 - We discussed the importance of weight loss in the setting of GERD and also in preparation for possible hiatal hernia repair. He will need to get to a weight of 270 pounds or less to qualify for a primary hiatal hernia repair if this is determined to be the cause of his symptoms. - He is very interested in bariatric surgery. Will have him fill out the bariatric seminar. 3. NAFLD (nonalcoholic fatty liver disease) - ICD9: 571.8, ICD10: K76.0 - Discussed the importance of weight loss 4. Esophageal dysphagia - ICD9: 787.29, ICD10: R13.19 - He describes esophageal dysphagia for which will obtain manometry - MANOMETRY ESOPHAGEAL 5. MIKE (obstructive sleep apnea) - ICD9: 327.23, ICD10: G47.33 - Encouraged patient to reach out to PCP for repeat sleep study. He is currently untreated for MIKE Medical Decision Making: Problems: Moderate: 2+ stable chronic illnesses Data: Unique test result(s) reviewed: 2 Unique test(s) ordered: 3+ Discussed management or test w/ external physician/QHCP/source Risk: Moderate: Drug management Medical Decision Making Level: 4 - Moderate SIGNATURE: Lissy Bowman MD PATIENT NAME: Bianca Delarosa DATE: February 06, 2025 TIME: 8:02 AM PAGER/CONTACT #: [id number] Patient states he has a lot of sharp, burning pain. He will have reflux up into his mouth when he lays down, increased belching. Last egd was over 10 years ago. Sally Baird MA documented in this encounter [facility] 02-06-2025 Note Addended by: AMBER RAPHAEL on: 02/06/2025 08:44 AM Modules accepted: Orders [facility] Work Phone: 02-06-2025 Miscellaneous Notes Addended by: AMBER RAPHAEL on: 02/06/2025 08:44 AM Modules accepted: Orders documented in this encounter [facility] 02-06-2025 Note HNO ID: [id number] Author: LISSY BOWMAN MD Service: ? Author Type: Physician Type: Progress Notes Filed: 02/06/2025 08:33 Note Text: SURGICAL SERVICES HISTORY AND PHYSICAL EXAMINATION SERVICE DATE: 02/06/2025 SERVICE TIME: 8:02 AM PRIMARY CARE PHYSICIAN: Humberto Jackson MD SUBJECTIVE CHIEF COMPLAINT: heartburn HISTORY OF PRESENT ILLNESS: Mr. Delarosa is a 49 year old male with a PMH of ADD, type 2 diabetes (metformin, Humalog), HLD, NAFLD, MIKE, GERD who presents for surgical consultation. Surgical consultation was requested by the patient's referring physician, Dr. Humberto Jackson. A copy of this consultation note will be provided to the requesting physician(s) by way of shared medical record or letter via [place] mail. The patient reports that he has had heartburn/reflux symptoms for many years - at least 10 years for which he has been on Nexium both OTC and prescription. However, in the last few months he has noticed increased malodorous belching and in the last few weeks he has noticed nocturnal regurgitation. And in the last month he has noticed dysphagia when drinking and eating solids at the same meal - happens in greater than 50% of meals. Workkup: - RUQ US 10/2024: hepatic steatosis - CT Chest (09/23/23): unremarkable Social: denies x 3. Rare ETOH - 1 to 2 glasses of wine per month PSHx: appy, tonsillectomy, arthroscopy PAST MEDICAL HISTORY: PAST MEDICAL HISTORY Diagnosis Date Abnormal finding on MRI of brain 12/11/2024 Possible pituitary adenoma. 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 Elevated antinuclear antibody (JALEEL) level 03/31/2014 Family history of malignant neoplasm of gastrointestinal tract 03/31/2014 Fatty liver 10/28/2024 US: 10/2024 ISABELLA (generalized anxiety disorder) 06/22/2020 GERD without esophagitis 09/26/2018 Gynecomastia, male 12/03/2024 Right breast Hepatic steatosis 10/25/2024 per U/S Hiatal hernia 03/31/2014 History of COVID-19 09/23/20232021, 09/2023 Hx of colonic polyp 03/31/2014 Needs next colonoscopy 08/2022 Lump 11/16/2019 benign left palm Major depressive disorder with single episode, in partial remission 09/26/2018 Migraine without aura and without status migrainosus, not intractable 09/11/2015 Mood disorder 03/31/2014 Multiple thyroid nodules 02/27/[address] Lazaro 03/2018 Multiple thyroid nodules 02/27/2018 US 03/2020 per radiology no further f/u needed.. All benign Biopsy 03/[address] Lazaro. Benign. Obesity, Class II, BMI 35-39.9 10/21/2022 Obstructive sleep apnea syndrome 01/27/2017 doesnt wear machine Other joint derangement, not elsewhere classified, lower leg 03/25/2013 Primary insomnia 07/28/2020 QT prolongation 04/20/2021 Seen [facility] 04/19/2021: Retsof to be benign and related to anti-depressants. No changes needed. TMJ (temporomandibular joint disorder) 03/31/2014 Right side Type 2 diabetes mellitus without complication, without long-term current use of insulin (HCC) 01/19/2017 Well adult exam 12/17/2014 Last done:11/16/2019 PAST SURGICAL HISTORY: PAST SURGICAL HISTORY Procedure Laterality Date APPENDECTOMY HX 2004 ARTHROTOMY W/MENISCUS REPAIR KNEE Right 04/2021 COLONOSCOPY 06/2012 Dr. Corrigan +polyp, repeat 5 yrs COLONOSCOPY 08/30/2022 repeat in 5 years COLONOSCOPY FLX DX W/COLLJ SPEC WHEN PFRMD 08/16/2017 Colonoscopy, repeat 5 yrs, Dr. Bliss IANDD ABSC SMPL OR SGL Left 03/10/2024 perirectal 2cm x 4 cm PAST SURGICAL HISTORY OF 2008 benign cysts: 1 from head and 2 from neck TONSILLECTOMY HX 1979 FAMILY HISTORY: FAMILY HISTORY Problem Relation Age of Onset Colon Cancer Father 52 Coronary Artery Disease Father Coronary Artery Disease Mother 60's Hypertension Mother No Known Problems Brother No Known Problems Brother No Known Problems Brother Coronary Artery Disease Maternal Grandmother 60's Stroke Maternal Grandfather Colon Cancer Paternal Uncle 49 Alzheimer's Disease No Family History Prostate Cancer No Family History Breast Cancer No Family History Hyperlipidemia No Family History Kidney Disease No Family History Seizures No Family History Thyroid No Family History No Ocular Disease No Family History SOCIAL HISTORY: Social History Tobacco Use Smoking status: Never Smokeless tobacco: Never Vaping Use Vaping status: Never Used Substance Use Topics Alcohol use: Yes (more content not included)... [facility] 02-06-2025 Note HNO ID: [id number] Author: SALLY BAIRD MA Service: ? Author Type: Unit Clerk Type: Progress Notes Filed: 02/06/2025 08:33 Note Text: Patient states he has a lot of sharp, burning pain. He will have reflux up into his mouth when he lays down, increased belching. Last egd was over 10 years ago. Sally Baird MA [facility] 01-21-2025 Instructions Humberto Jackson MD - 01/21/2025 11:41 AM EDT Remember to do the non-fasting lab work for anemia on or after 01/30/2025 documented in this encounter [facility] 01-21-2025 History of Present illness Narrative Chief Complaint Patient presents with: Follow Up HPI Bianca Delarosa is a 49 year old male who presents here today for Pneumonia Patient with hx of DM 2, hyperlipidemia, GERD, mood disorder, thyroid nodules, allergies, depression, migraines, insomnia, MIKE as well as those reviewed and addressed below Office note from 12/30/2024 Currently being evaluated for gynecomastia and abnormal imaging of brain, pituitary . Patient has appointment on 01/06/[address] Mckeon, Neurosurgery and Endo on 02/06/2025 Last week on had a URI, fevers and chills. Retsof ok yesterday but feeling winded with activity. SaO2 walking up stairs last night was 87-90% with home pulse ox. Has a dry cough. No ear pain or facial pain. Had a sore throat on and Monday. Has clear nasal drainage. No nausea, vomiting or diarrhea. Some body aches over the weekend. Has been taking some generic dayquel.. Doing ok with the current dose of methylphenidate. Today: patient completed a course of Augmentin 875 mg twice a day for 10 days. Patient has been feeling better. No fevers since last beng seen and cough is much better. Feeling more like his normal self. Patient continues to have GERD and belching more. When he burps his has told him it has a bad odor. Past medical history, appointments, medications, allergies reviewed. Previous Medical History PAST MEDICAL HISTORY Diagnosis Date Abnormal finding on MRI of brain 12/11/2024 Possible pituitary adenoma. 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 Elevated antinuclear antibody (JALEEL) level 03/31/2014 Family history of malignant neoplasm of gastrointestinal tract 03/31/2014 Fatty liver 10/28/2024 US: 10/2024 ISABELLA (generalized anxiety disorder) 06/22/2020 GERD without esophagitis 09/26/2018 Gynecomastia, male 12/03/2024 Right breast Hiatal hernia 03/31/2014 History of COVID-19 09/23/20232021, 09/2023 Hx of colonic polyp 03/31/2014 Needs next colonoscopy 08/2022 Lump 11/16/2019 benign left palm Major depressive disorder with single episode, in partial remission 09/26/2018 Migraine without aura and without status migrainosus, not intractable 09/11/2015 Mood disorder 03/31/2014 Multiple thyroid nodules 02/27/[address] Lazaro 03/2018 Multiple thyroid nodules 02/27/2018 US 03/2020 per radiology no further f/u needed.. All benign Biopsy 03/[address] Lazaro. Benign. Obesity, Class II, BMI 35-39.9 10/21/2022 Obstructive sleep apnea syndrome 01/27/2017 On CPAP Other joint derangement, not elsewhere classified, lower leg 03/25/2013 Primary insomnia 07/28/2020 QT prolongation 04/20/2021 Seen [facility] 04/19/2021: Retsof to be benign and related to anti-depressants. No changes needed. TMJ (temporomandibular joint disorder) 03/31/2014 Right side Type 2 diabetes mellitus without complication, without long-term current use of insulin (HCC) 01/19/2017 Well adult exam 12/17/2014 Last done:11/16/2019 Previous Surgical History PAST SURGICAL HISTORY Procedure Laterality Date APPENDECTOMY HX 2004 ARTHROTOMY W/MENISCUS REPAIR KNEE Right 04/2021 COLONOSCOPY 06/2012 Dr. Corrigan +polyp, repeat 5 yrs COLONOSCOPY 08/30/2022 repeat in 5 years COLONOSCOPY FLX DX W/COLLJ SPEC WHEN PFRMD 08/16/2017 Colonoscopy, repeat 5 yrs, Dr. Bliss PAST SURGICAL HISTORY OF 2009 benign cysts: 1 from head and 2 from neck TONSILLECTOMY & ADENOIDECTOMY AGE 11/> 1978 TONSILLECTOMY HX Family History FAMILY HISTORY Problem Relation Age of Onset Colon Cancer Father 52 Coronary Artery Disease Father Coronary Artery Disease Mother 60's Hypertension Mother No Known Problems Brother No Known Problems Brother No Known Problems Brother Coronary Artery Disease Maternal Grandmother 60's Stroke Maternal Grandfather Colon Cancer Paternal Uncle 49 Alzheimer's Disease No Family History Prostate Cancer No Family History Breast Cancer No Family History Hyperlipidemia No Family History Kidney Disease No Family History Seizures No Family History Thyroid No Family History No Ocular Disease No Family History Patient Allergies ALLERGIES Allergen Reactions Topamax [Topiramate] Mental Status Change Unable to remember anything Celexa [Citalopram * Other: See Comments uneffective Effexor [Venlafaxin* Other: See Comments Sexual side affect Reglan [Metoclopram* Unknown Zoloft [Sertraline * Other: See Comments drowsy Current Medications Current Outpatient Medications on File Prior to Visit Medication Sig metFORMIN (GLUCOPHAGE) 500 mg tablet Take 2 tablets by mouth two times a day with meals. DULoxetine (CYMBALTA) 60 mg capsule Take 1 capsule by mouth once daily. albuterol HFA (PROVENTIL HFA, VENTOLIN HFA) 90 mcg/actuation inhaler Inhale 2 Puffs as instructed three times a day. OLANZapine (ZYPREXA) 5 mg tablet Take 1 tablet by mouth daily at bedtime. methylphenidate LA (RITALIN LA) 20 mg biphasic capsule Take 1 capsule by mouth once daily for 30 days. DULoxetine (CYMBALTA) 30 mg capsule Take 1 capsule by mouth once daily. methylphenidate CD (METADATE CD) 20 mg biphasic capsule Take 1 capsule by mouth once daily for 30 days. Blood-Glucose Sensor (FREESTYLE EVERT 3 SENSOR) agnes USE ONE SENSOR EVERY 14 DAY, IDDM, E11.9 sucralfate (CARAFATE) 1 gram tablet Take one tab with lunch and before bed. Fenofibrate 120 mg tab Take 1 tablet by mouth once daily. esomeprazole (NEXIUM) 40 mg capsule Take 1 capsule by mouth two times a day. atorvastatin (LIPITOR) 80 mg tablet Take 1 tablet by mouth once daily. busPIRone (BUSPAR) 15 mg tablet Take one tab by mouth twice a day. doxepin capsule 10 mg Take 1 capsule by mouth daily at bedtime. TRESIBA FLEXTOUCH U-100 100 unit/mL (3 mL) injection pen Inject 60 units subcutaneous daily at bedtime. Dispense 60 mL for 90 day supply. HUMALOG KWIKPEN INSULIN 100 unit/mL Inject subcutaneously 20 units breakfast, 20 units lunch, 20 units dinner plus sliding scale up to 82 units daily. Dispense 75 mL for a 90 day supply. Insulin Wykoff, Disposable, (DROPLET PEN NEEDLE) 31 gauge x 3/16 Use 4 PEN NEEDLES to inject MEDICATION subcutaneously daily zonisamide (ZONEGRAN) 25 mg capsule Take 1 capsule by mouth once daily. multivitamin tablet Take 1 tablet by mouth once daily. No current facility-administered medications on file prior to visit. Social History Social History Tobacco Use Smoking status: Never Smokeless tobacco: Never Vaping Use Vaping status: Never Used Substance Use Topics Alcohol use: Yes Comment: Rarely Drug use: No Review of Symptoms REVIEW OF SYSTEMS See HPI EXAM: BP 124/88 Pulse 88 Temp 36.6 C (97.8 F) (Left Tympanic) Resp 16 Wt 129.7 kg (286 lb) SpO2 95% BMI 36.72 kg/m Last 5 Encounter Wt Readings: Date: Wt: 01/21/2025 129.7 kg (286 lb) 01/06/2025 128.2 kg (282 lb 10.1 oz) 12/30/2024 127.5 kg (281 lb) 12/20/2024 130.2 kg (287 lb) 11/22/2024 130.6 kg (288 lb) General Appearance: Well appearing, alert, in no acute distress, well-hydrated, well nourished.. Lungs: Lungs clear to auscultation. No wheezing, rhonchi, rales.. Heart: RRR without murmur, gallop, or rubs. No ectopy. Health Maintenance List Urine Albumin:Creatinine Ratio due on 08/11/2024 Shingrix Vaccine(1 of 2) due on 12/30/2025 Dilated Retinal Exam due on 02/22/2025 HbA1C due on 03/22/2025 LDL Cholesterol due on 12/20/2025 Diabetic Foot Exam due on 12/30/2025 Annual PCP Team Chronic Disease Visit due on 12/30/2025 Colorectal Cancer Screening due on 08/30/2027 Pneumococcal Vaccine: 50+(3 of 3 - PCV20 or PCV21) due on 12/06/2028 DTaP,Tdap,Td Vaccine(3 - Td or Tdap) due on 04/13/2031 Hepatitis B Vaccine Completed Influenza Vaccine Completed Covid-19 Vaccine Completed Spirometry Discontinued Hepatitis C Screening Discontinued HIV Screening Discontinued Data reviewed A/P ASSESSMENT/PLAN: 1. Bacterial pneumonia - ICD9: 482.9, ICD10: J15.9 (primary diagnosis) - resolved. 2. Gastroesophageal reflux disease without esophagitis - ICD9: 530.81, ICD10: K21.9 - not controlled - cont current meds. - consult heartburn center [facility]: Dr. Bowman 3. Belching - ICD9: 787.3, ICD10: R14.2 - new issue - as per #2 4. Attention 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 - ICD9: 314.00, ICD10: F98.8 controlled Cont - METHYLPHENIDATE CD 20 MG BIPHASIC 30-70 CAPSULE,EXTENDED RELEASE Requested Prescriptions Signed Prescriptions Disp Refills methylphenidate CD (METADATE CD) 20 mg biphasic capsule 30 capsule 0 Sig: Take 1 capsule by mouth once daily for 30 days. F/u next routine. Humberto Jackson MD documented in this encounter [facility] 01-21-2025 Note HNO ID: [id number] Author: HUMBERTO JACKSON MD Service: ? Author Type: Physician Type: Progress Notes Filed: 01/21/2025 12:26 Note Text: Chief Complaint Patient presents with: Follow Up HPI Bianca Delarosa is a 49 year old male who presents here today for Pneumonia Patient with hx of DM 2, hyperlipidemia, GERD, mood disorder, thyroid nodules, allergies, depression, migraines, insomnia, MIKE as well as those reviewed and addressed below Office note from 12/30/2024 Currently being evaluated for gynecomastia and abnormal imaging of brain, pituitary . Patient has appointment on 01/06/[address] Mckeon, Neurosurgery and Endo on 02/06/2025 Last week on had a URI, fevers and chills. Retsof ok yesterday but feeling winded with activity. SaO2 walking up stairs last night was 87-90% with home pulse ox. Has a dry cough. No ear pain or facial pain. Had a sore throat on and Monday. Has clear nasal drainage. No nausea, vomiting or diarrhea. Some body aches over the weekend. Has been taking some generic dayquel.. Doing ok with the current dose of methylphenidate. Today: patient completed a course of Augmentin 875 mg twice a day for 10 days. Patient has been feeling better. No fevers since last beng seen and cough is much better. Feeling more like his normal self. Patient continues to have GERD and belching more. When he burps his has told him it has a bad odor. Past medical history, appointments, medications, allergies reviewed. Previous Medical History PAST MEDICAL HISTORY Diagnosis Date Abnormal finding on MRI of brain 12/11/2024 Possible pituitary adenoma. 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 Elevated antinuclear antibody (JALEEL) level 03/31/2014 Family history of malignant neoplasm of gastrointestinal tract 03/31/2014 Fatty liver 10/28/2024 US: 10/2024 ISABELLA (generalized anxiety disorder) 06/22/2020 GERD without esophagitis 09/26/2018 Gynecomastia, male 12/03/2024 Right breast Hiatal hernia 03/31/2014 History of COVID-19 09/23/20232021, 09/2023 Hx of colonic polyp 03/31/2014 Needs next colonoscopy 08/2022 Lump 11/16/2019 benign left palm Major depressive disorder with single episode, in partial remission 09/26/2018 Migraine without aura and without status migrainosus, not intractable 09/11/2015 Mood disorder 03/31/2014 Multiple thyroid nodules 02/27/[address] Lazaro 03/2018 Multiple thyroid nodules 02/27/2018 US 03/2020 per radiology no further f/u needed.. All benign Biopsy 03/[address] Lazaro. Benign. Obesity, Class II, BMI 35-39.9 10/21/2022 Obstructive sleep apnea syndrome 01/27/2017 On CPAP Other joint derangement, not elsewhere classified, lower leg 03/25/2013 Primary insomnia 07/28/2020 QT prolongation 04/20/2021 Seen [facility] 04/19/2021: Retsof to be benign and related to anti-depressants. No changes needed. TMJ (temporomandibular joint disorder) 03/31/2014 Right side Type 2 diabetes mellitus without complication, without long-term current use of insulin (HCC) 01/19/2017 Well adult exam 12/17/2014 Last done:11/16/2019 Previous Surgical History PAST SURGICAL HISTORY Procedure Laterality Date APPENDECTOMY HX 2003 ARTHROTOMY W/MENISCUS REPAIR KNEE Right 04/2021 COLONOSCOPY 06/2012 Dr. Corrigan +polyp, repeat 5 yrs COLONOSCOPY 08/30/2022 repeat in 5 years COLONOSCOPY FLX DX W/COLLJ SPEC WHEN PFRMD 08/16/2017 Colonoscopy, repeat 5 yrs, Dr. Bliss PAST SURGICAL HISTORY OF 2008 benign cysts: 1 from head and 2 from neck TONSILLECTOMY AND ADENOIDECTOMY AGE 11/> 1979 TONSILLECTOMY HX Family History FAMILY HISTORY Problem Relation Age of Onset Colon Cancer Father 52 Coronary Artery Disease Father Coronary Artery Disease Mother 60's Hypertension Mother No Known Problems Brother No Known Problems Brother No Known Problems Brother Coronary Artery Disease Maternal Grandmother 60's Stroke Maternal Grandfather Colon Cancer Paternal Uncle 49 Alzheimer's Disease No Family History Prostate Cancer No Family History Breast Cancer No Family History Hyperlipidemia No Family History Kidney Disease No Family History Seizures No Family History Thyroid No Family History No Ocular Disease No Family History Patient Allergies ALLERGIES Allergen Reactions Topamax [Topiramate] Mental Status Change Unable to remember anything Celexa [Ci (more content not included)... [facility] 01-10-2025 Telephone encounter Note Images from the original note were not included. Received a fax from [employer]. Most recent Endocrinology visit: Last encounter Visit on 01/17/2024 (with Torres Monaco) JULIO: 01/17/24 NOV: does not have one scheduled 01/27/2023 in [facility] with TORRES MONACO for Type 2 diabetes mellitus without complication, without long-term current use of insulin (HCC) 07/07/2023 in [facility] with TORRES MONACO for Type 2 diabetes mellitus without complication, without long-term current use of insulin (HCC) 10/18/2023 in [facility] with TORRES MONACO for Type 2 diabetes mellitus without complication, without long-term current use of insulin (HCC) 01/17/2024 in [facility] with TORRES MONACO for Type 2 diabetes mellitus without complication, without long-term current use of insulin ([facility]) Upcoming Endocrinology Appointments - Next 365 Days Visit Type Date Time Department VIDEO SPEC NEW 02/06/2025 2:30 PM [facility]O [facility] 3 Requested Prescriptions Pending Prescriptions Disp Refills metFORMIN (GLUCOPHAGE) 500 mg tablet 360 tablet 3 Sig: Take 2 tablets by mouth two times a day with meals. Latest Ref Rng & Units 12/20/2024 10/14/2024 05/21/2024 Hemoglobin A1C Hemoglobin A1C 4.3 - 5.6 % 10.5 11.7 11.9 Latest Ref Rng & Units 12/20/2024 11/22/2024 05/21/2024 TSH TSH 0.270 - 4.200 mIU/L 1.230 1.190 1.330 Free T3: None on file in the last 12 months Latest Ref Rng & Units 11/22/2024 09/04/2018 02/20/2018 FREE T4 Free T4 0.9 - 1.7 ng/dL 1.1 Free Thyroxine 0.44 - 1.61 ng/dL 0.69 0.75 Thyroglobulin: None on file in the last 12 months Vitamin D: None on file in the last 12 months Latest Ref Rng & Units 12/20/2024 05/21/2024 12/06/2023 Hematocrit Hematocrit 39.0 - 51.0 % 37.3 44.8 46.1 Latest Ref Rng & Units 12/20/2024 05/21/2024 12/06/2023 Creatinine Creatinine 0.73 - 1.22 mg/dL 0.68 0.73 0.79 Latest Ref Rng & Units 12/20/2024 05/21/2024 12/06/2023 eGFR EGFR >=60 mL/min/1.73m 113 112 110 Latest Ref Rng & Units 12/20/2024 05/21/2024 12/06/2023 Potassium Potassium 3.7 - 5.1 mmol/L 4.5 4.3 4.8 Latest Ref Rng & Units 11/22/2024 Testosterone Testosterone 193 - 824 ng/dL 166 IGF: None on file in the last 12 months Latest Ref Rng & Units 11/22/2024 Prolactin Prolactin 4.1 - 25.1 ng/mL 41.[address] [facility] 01-10-2025 Miscellaneous Notes Images from the original note were not included. Received a fax from [facility]. Most recent Endocrinology visit: Last encounter Visit on 01/17/2024 (with Torres Monaco) JULIO: 01/17/24 NOV: does not have one scheduled 01/27/2023 in [facility] with TORRES MONACO for Type 2 diabetes mellitus without complication, without long-term current use of insulin (HCC) 07/07/2023 in [facility] with TORRES MONACO for Type 2 diabetes mellitus without complication, without long-term current use of insulin ([facility]) 10/18/2023 in [facility] with TORRES MONACO for Type 2 diabetes mellitus without complication, without long-term current use of insulin (HCC) 01/17/2024 in [facility] with TORRES MONACO for Type 2 diabetes mellitus without complication, without long-term current use of insulin ([facility]) Upcoming Endocrinology Appointments - Next 365 Days Visit Type Date Time Department VIDEO SPEC NEW 02/06/2025 2:30 PM ENDO [facility] 3 Requested Prescriptions Pending Prescriptions Disp Refills metFORMIN (GLUCOPHAGE) 500 mg tablet 360 tablet 3 Sig: Take 2 tablets by mouth two times a day with meals. Latest Ref Rng & Units 12/20/2024 10/14/2024 05/21/2024 Hemoglobin A1C Hemoglobin A1C 4.3 - 5.6 % 10.5 11.7 11.9 Latest Ref Rng & Units 12/20/2024 11/22/2024 05/21/2024 TSH TSH 0.270 - 4.200 mIU/L 1.230 1.190 1.330 Free T3: None on file in the last 12 months Latest Ref Rng & Units 11/22/2024 09/04/2018 02/20/2018 FREE T4 Free T4 0.9 - 1.7 ng/dL 1.1 Free Thyroxine 0.44 - 1.61 ng/dL 0.69 0.75 Thyroglobulin: None on file in the last 12 months Vitamin D: None on file in the last 12 months Latest Ref Rng & Units 12/20/2024 05/21/2024 12/06/2023 Hematocrit Hematocrit 39.0 - 51.0 % 37.3 44.8 46.1 Latest Ref Rng & Units 12/20/2024 05/21/2024 12/06/2023 Creatinine Creatinine 0.73 - 1.22 mg/dL 0.68 0.73 0.79 Latest Ref Rng & Units 12/20/2024 05/21/2024 12/06/2023 eGFR EGFR >=60 mL/min/1.73m 113 112 110 Latest Ref Rng & Units 12/20/2024 05/21/2024 12/06/2023 Potassium Potassium 3.7 - 5.1 mmol/L 4.5 4.3 4.8 Latest Ref Rng & Units 11/22/2024 Testosterone Testosterone 193 - 824 ng/dL 166 IGF: None on file in the last 12 months Latest Ref Rng & Units 11/22/2024 Prolactin Prolactin 4.1 - 25.1 ng/mL 41.2 documented in this encounter [facility] 01-10-2025 Telephone encounter Note Please assist patient with referral to Ortho. Tam Daugherty MA [facility] 01-10-2025 Miscellaneous Notes Please assist patient with referral to Ortho. Tam Daugherty MA Referral order placed. Please assist with scheduling. Continue exercises given by PT along with OTC analgesics, ice/heat PRN. Patient notified of results, verbalizes understanding of instructions. Pt stated, Please place order for Ortho. Dimple Castellon LPN ----- Message from Elizabeth Suárez MD sent at 01/08/2025 1:15 PM EDT ----- Mri of the right shoulder does not show rotator cuff tear. Does show signs of frozen shoulder. If pain and weakness not improved after PT, would recommend referral to ortho. Will place order if patient agreeable. documented in this encounter [facility] 01-10-2025 Telephone encounter Note Referral order placed. Please assist with scheduling. Continue exercises given by PT along with OTC analgesics, ice/heat PRN. [facility] 01-09-2025 Telephone encounter Note Patient notified of results, verbalizes understanding of instructions. Pt stated, Please place order for Ortho. Dimple Castellon LPN [facility] 01-09-2025 Telephone encounter Note ----- Message from Elizabeth Suárez MD sent at 01/08/2025 1:15 PM EDT ----- Mri of the right shoulder does not show rotator cuff tear. Does show signs of frozen shoulder. If pain and weakness not improved after PT, would recommend referral to ortho. Will place order if patient agreeable. [facility] 01-06-2025 History of Present illness Narrative NEUROSURGERY CONSULT NOTE Ja Mckeon MD [facility] Date of visit: January 06, 2025 Patient Name: Mr.David Dany Delarosa Date of : 1975 Current Age: [age] year old Sex: male MRN/E# [id number] Last Office Visit: 12/24/2024 Chief Complaint: Patient presents with: New Patient Past Medical/Surgical History: Bianca Delarosa is a 49 year old, right handed male who is referred by Dr. Jackson PCP for neurosurgical evaluation. The patient has a history of elevated JALEEL levels, fatty liver, GERD, migraines, QT prolongation, DM2. Smoking: denies. Alcohol Use: rare HISTORY OF PRESENT ILLNESS : The patient presents to the office today as a new patient for neurosurgical evaluation of pituitary adenoma. He states he was being worked up for a lump in the right breast region which prompted MRI and mammogram. Due to the results of the MRI, his PCP sent him here. He denies any dizziness, vision changes, nausea/vomiting or falls. He is here for image review, evaluation and plan of care. Symptoms: none PREVIOUS CONSERVATIVE TREATMENTS: Sees Endocrinology in February PREVIOUS SURGERY: None Surgical Risk Factors: Smoking status: denies Anticoagulants/antiplatelets: denies Diabetic: yes, last A1c 12/20/2024 - 10.5 - trending down - working with endocrinology BMI: 36.29 PAIN EVALUATION No data found in the last 1 encounters. PAST MEDICAL HISTORY Diagnosis Date Abnormal finding on MRI of brain 12/11/2024 Possible pituitary adenoma. 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 Elevated antinuclear antibody (JALEEL) level 03/31/2014 Family history of malignant neoplasm of gastrointestinal tract 03/31/2014 Fatty liver 10/28/2024 US: 10/2024 ISABELLA (generalized anxiety disorder) 06/22/2020 GERD without esophagitis 09/26/2018 Gynecomastia, male 12/03/2024 Right breast Hiatal hernia 03/31/2014 History of COVID-19 09/23/20232021, 09/2023 Hx of colonic polyp 03/31/2014 Needs next colonoscopy 08/2022 Lump 11/16/2019 benign left palm Major depressive disorder with single episode, in partial remission 09/26/2018 Migraine without aura and without status migrainosus, not intractable 09/11/2015 Mood disorder 03/31/2014 Multiple thyroid nodules 02/27/[address] Lazaro 03/2018 Multiple thyroid nodules 02/27/2018 US 03/2020 per radiology no further f/u needed.. All benign Biopsy 03/[address] Lazaro. Benign. Obesity, Class II, BMI 35-39.9 10/21/2022 Obstructive sleep apnea syndrome 01/27/2017 On CPAP Other joint derangement, not elsewhere classified, lower leg 03/25/2013 Primary insomnia 07/28/2020 QT prolongation 04/20/[address] [facility] 04/19/2021: Retsof to be benign and related to anti-depressants. No changes needed. TMJ (temporomandibular joint disorder) 03/31/2014 Right side Type 2 diabetes mellitus without complication, without long-term current use of insulin (HCC) 01/19/2017 Well adult exam 12/17/2014 Last done:11/16/2019 PAST SURGICAL HISTORY Procedure Laterality Date APPENDECTOMY HX 2004 ARTHROTOMY W/MENISCUS REPAIR KNEE Right 04/2021 COLONOSCOPY 06/2012 Dr. Corrigan +polyp, repeat 5 yrs COLONOSCOPY 08/30/2022 repeat in 5 years COLONOSCOPY FLX DX W/COLLJ SPEC WHEN PFRMD 08/16/2017 Colonoscopy, repeat 5 yrs, Dr. Bliss PAST SURGICAL HISTORY OF 2009 benign cysts: 1 from head and 2 from neck TONSILLECTOMY & ADENOIDECTOMY AGE 11/> 1978 TONSILLECTOMY HX FAMILY HISTORY Problem Relation Age of Onset Colon Cancer Father 52 Coronary Artery Disease Father Coronary Artery Disease Mother 60's Hypertension Mother No Known Problems Brother No Known Problems Brother No Known Problems Brother Coronary Artery Disease Maternal Grandmother 60's Stroke Maternal Grandfather Colon Cancer Paternal Uncle 49 Alzheimer's Disease No Family History Prostate Cancer No Family History Breast Cancer No Family History Hyperlipidemia No Family History Kidney Disease No Family History Seizures No Family History Thyroid No Family History No Ocular Disease No Family History ALLERGIES Allergen Reactions Topamax [Topiramate] Mental Status Change Unable to remember anything Celexa [Citalopram * Other: See Comments uneffective Effexor [Venlafaxin* Other: See Comments Sexual side affect Reglan [Metoclopram* Unknown Zoloft [Sertraline * Other: See Comments drowsy Current Outpatient Medications Medication Sig Dispense Refill DULoxetine (CYMBALTA) 60 mg capsule Take 1 capsule by mouth once daily. 90 capsule 1 amoxicillin-clavulanate potassium (AUGMENTIN) 875-125 mg per tablet Take 1 tablet by mouth every 12 hours for 10 days. 20 tablet 0 albuterol HFA (PROVENTIL HFA, VENTOLIN HFA) 90 mcg/actuation inhaler Inhale 2 Puffs as instructed three times a day. 1 Each 0 OLANZapine (ZYPREXA) 5 mg tablet Take 1 tablet by mouth daily at bedtime. 90 tablet 1 methylphenidate LA (RITALIN LA) 20 mg biphasic capsule Take 1 capsule by mouth once daily for 30 days. 30 capsule 0 DULoxetine (CYMBALTA) 30 mg capsule Take 1 capsule by mouth once daily. 90 capsule 1 methylphenidate CD (METADATE CD) 20 mg biphasic capsule Take 1 capsule by mouth once daily for 30 days. 30 capsule 0 Blood-Glucose Sensor (FREESTYLE EVERT 3 SENSOR) agnes USE ONE SENSOR EVERY 14 DAY, IDDM, E11.9 2 Each 2 sucralfate (CARAFATE) 1 gram tablet Take one tab with lunch and before bed. 60 tablet 5 Fenofibrate 120 mg tab Take 1 tablet by mouth once daily. 90 tablet 1 esomeprazole (NEXIUM) 40 mg capsule Take 1 capsule by mouth two times a day. 180 capsule 1 atorvastatin (LIPITOR) 80 mg tablet Take 1 tablet by mouth once daily. 90 tablet 1 busPIRone (BUSPAR) 15 mg tablet Take one tab by mouth twice a day. 180 tablet 1 doxepin capsule 10 mg Take 1 capsule by mouth daily at bedtime. 90 capsule 1 TRESIBA FLEXTOUCH U-100 100 unit/mL (3 mL) injection pen Inject 60 units subcutaneous daily at bedtime. Dispense 60 mL for 90 day supply. 60 mL 3 HUMALOG KWIKPEN INSULIN 100 unit/mL Inject subcutaneously 20 units breakfast, 20 units lunch, 20 units dinner plus sliding scale up to 82 units daily. Dispense 75 mL for a 90 day supply. 75 mL 3 Insulin Wykoff, Disposable, (DROPLET PEN NEEDLE) 31 gauge x /16 Use 4 PEN NEEDLES to inject MEDICATION subcutaneously daily 400 Each 3 metFORMIN (GLUCOPHAGE) 500 mg tablet Take 2 tablets by mouth two times a day with meals. 360 tablet 3 zonisamide (ZONEGRAN) 25 mg capsule Take 1 capsule by mouth once daily. 90 capsule 1 multivitamin tablet Take 1 tablet by mouth once daily. 0 No current facility-administered medications for this visit. REVIEW OF SYSTEMS Review of Systems Constitutional: Negative for chills, fatigue and fever. HENT: Negative for ear pain, hearing loss and tinnitus. Eyes: Negative for photophobia, pain and visual disturbance. Respiratory: Negative for shortness of breath. Cardiovascular: Negative for chest pain. Gastrointestinal: Negative for constipation, diarrhea, nausea and vomiting. Endocrine: Negative for polydipsia, polyphagia and polyuria. Genitourinary: Negative for difficulty urinating, frequency and urgency. Musculoskeletal: Negative for back pain, gait problem, neck pain and neck stiffness. Skin: Negative for color change. Neurological: Negative for dizziness, weakness, light-headedness and numbness. Psychiatric/Behavioral: Negative for agitation and confusion. The patient is not nervous/anxious. OBJECTIVE: BP 126/86 Pulse 80 Resp 16 Ht 6' 2 (1.88m) Wt 282 lb 10.1 oz (128.2kg) SpO2 96% BMI 36.27 kg/(m^2). PHYSICAL EXAM: Mental State : Alert, memory function unremarkable. Attention span and concentration normal for patient's age. Speech normal, no receptive or expressive speech deficit. Recent and remote memory normal. Orientation : Oriented to person, place and time. Cranial Nerves : Grossly intact. Sensory: Normal Sensation in upper and lower extremities and trunk to touch and noxious stimuli. Motor: Normal muscle tone and bulk. No tremor or uncontrollable movements. No spasticity or tremor. Gait and Station: Casual gait is normal including stance, stride, and arm swing. STRENGTH: Upper Extremity Strength Exam Right Left Elbow Flexion 5/5 5/5 Elbow Extension 5/5 5/5 Finger Flexion 5/5 5/5 Finger Extension 5/5 5/5 Finger Abduction 5/5 5/5 Lower Extremity Strength Exam Right Left Hip Flexion 5/5 5/5 Knee Flexion 5/5 5/5 Knee Extension 5/5 5/5 Dorsiflexion 5/5 5/5 Plantarflexion 5/5 5/5 Data Review IMAGING STUDIES: MRI BRAIN wwo 12/11/2024: Convex upper margin of the pituitary gland could reflect an underlying lesion/adenoma or pituitary hyperplasia. Assessment & Plan: Mr. Delarosa presents for evaluation of a pituitary lesion. He noticed a lump under his right breast about 6 weeks ago that is tender to palpation. He denies any discharge. He denies any significant changes in his vision, changes in his hand or foot size, or changes in his facial features. He has type 2 diabetes that has been difficult to control over the last couple years, with his last A1c being higher than 10. His brain MRI showed a small 4 mm hypointense lesion that could represent a small adenoma. In terms of his blood work, his prolactin level was 41, which is not indicative of an underlying prolactinoma. He has not had an ACTH or IGF-I, which I will order for him. I explained the 2 broad categories of pituitary lesions. These categories are functioning tumors that secrete hormone, versus nonfunctioning tumors. I would like to check the remainder of his pituitary endocrine panel to screen for these functioning tumors that could be causing him his symptoms, especially in the setting of difficult to control diabetes. I will see him back virtually once this blood work is complete and we can discuss if any further management needs to be done. I will also order an MRI pituitary protocol in approximately 6 months to assess for any change. All questions were answered. Attribution: The following portions of the patient's history were reviewed, confirmed, and updated as necessary: allergies, current medications, past family history, past medical history, past social history, past surgical history, problem list, HPI, and ROS obtained by others. Some elements may be copied from a previous office note and have been reviewed/updated where appropriate. All portions reflect current medical decision making from today. The clinical and radiographic findings as well as the risks, benefits and alternatives of treatment have been reviewed in detail with the patient. Advised to call the office if symptoms worsen or new symptoms develop. Patient expressed understanding and is in agreement with plan. Ja Mckeon MD [facility] Medical Decision Making: Problems: Moderate: New problem with uncertain prognosis Data: Unique source(s) for external note(s) reviewed: 1 Unique test result(s) reviewed: 1 Unique test(s) ordered: 2 Risk: Moderate: Moderate risk from testing/treatment Medical Decision Making Level: 4 - Moderate This note was partially generated using Swish voice recognition system, and there may be some incorrect words, spellings, and punctuation that were not noted in checking the note before saving. documented in this encounter [facility] 01-06-2025 Note HNO ID: [id number] Author: JA MCKEON MD Service: ? Author Type: Physician Type: Progress Notes Filed: 01/06/2025 15:08 Note Text: NEUROSURGERY CONSULT NOTE Ja Mckeon MD [facility] Date of visit: January 06, 2025 Patient Name: Mr.David Dany Delarosa Date of : 1975 Current Age: [age] year old Sex: male MRN/E# [id number] Last Office Visit: 12/24/2024 Chief Complaint: Patient presents with: New Patient Past Medical/Surgical History: Bianca Delarosa is a 49 year old, right handed male who is referred by Dr. Jackson PCP for neurosurgical evaluation. The patient has a history of elevated JALEEL levels, fatty liver, GERD, migraines, QT prolongation, DM2. Smoking: denies. Alcohol Use: rare HISTORY OF PRESENT ILLNESS : The patient presents to the office today as a new patient for neurosurgical evaluation of pituitary adenoma. He states he was being worked up for a lump in the right breast region which prompted MRI and mammogram. Due to the results of the MRI, his PCP sent him here. He denies any dizziness, vision changes, nausea/vomiting or falls. He is here for image review, evaluation and plan of care. Symptoms: none PREVIOUS CONSERVATIVE TREATMENTS: Sees Endocrinology in February PREVIOUS SURGERY: None Surgical Risk Factors: Smoking status: denies Anticoagulants/antiplatelets: denies Diabetic: yes, last A1c 12/20/2024 - 10.5 - trending down - working with endocrinology BMI: 36.29 PAIN EVALUATION No data found in the last 1 encounters. PAST MEDICAL HISTORY Diagnosis Date Abnormal finding on MRI of brain 12/11/2024 Possible pituitary adenoma. 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 Elevated antinuclear antibody (JALEEL) level 03/31/2014 Family history of malignant neoplasm of gastrointestinal tract 03/31/2014 Fatty liver 10/28/2024 US: 10/2024 ISABELLA (generalized anxiety disorder) 06/22/2020 GERD without esophagitis 09/26/2018 Gynecomastia, male 12/03/2024 Right breast Hiatal hernia 03/31/2014 History of COVID-19 09/23/20232021, 09/2023 Hx of colonic polyp 03/31/2014 Needs next colonoscopy 08/2022 Lump 11/16/2019 benign left palm Major depressive disorder with single episode, in partial remission 09/26/2018 Migraine without aura and without status migrainosus, not intractable 09/11/2015 Mood disorder 03/31/2014 Multiple thyroid nodules 02/27/[address] Lazaro 03/2018 Multiple thyroid nodules 02/27/2018 US 03/2020 per radiology no further f/u needed.. All benign Biopsy 03/[address] Lazaro. Benign. Obesity, Class II, BMI 35-39.9 10/21/2022 Obstructive sleep apnea syndrome 01/27/2017 On CPAP Other joint derangement, not elsewhere classified, lower leg 03/25/2013 Primary insomnia 07/28/2020 QT prolongation 04/20/2021 Seen [facility] 04/19/2021: Retsof to be benign and related to anti-depressants. No changes needed. TMJ (temporomandibular joint disorder) 03/31/2014 Right side Type 2 diabetes mellitus without complication, without long-term current use of insulin (HCC) 01/19/2017 Well adult exam 12/17/2014 Last done:11/16/2019 PAST SURGICAL HISTORY Procedure Laterality Date APPENDECTOMY HX 2004 ARTHROTOMY W/MENISCUS REPAIR KNEE Right 04/2021 COLONOSCOPY 06/2012 Dr. Corrigan +polyp, repeat 5 yrs COLONOSCOPY 08/30/2022 repeat in 5 years COLONOSCOPY FLX DX W/COLLJ SPEC WHEN PFRMD 08/16/2017 Colonoscopy, repeat 5 yrs, Dr. Bliss PAST SURGICAL HISTORY OF 2008 benign cysts: 1 from head and 2 from neck TONSILLECTOMY AND ADENOIDECTOMY AGE 11/> 1979 TONSILLECTOMY HX FAMILY HISTORY Problem Relation Age of Onset Colon Cancer Father 52 Coronary Artery Disease Father Coronary Artery Disease Mother 60's Hypertension Mother No Known Problems Brother No Known Problems Brother No Known Problems Brother Coronary Artery Disease Maternal Grandmother 60's Stroke Maternal Grandfather Colon Cancer Paternal Uncle 49 Alzheimer's Disease No Family History Prostate Cancer No Family History Breast Cancer No Family History Hyperlipidemia No Family History Kidney Disease No Family History Seizures No Family History Thyroid No Family History No Ocular Disease No Family History ALLERGIES Allergen Reactions Topamax [Topiramate] Mental Status Change Unable to remember anything Celexa [Citalopram * Other: See Comments uneffective Effexor [Zhou (more content not included)... [facility] 01-04-2025 History of Present illness Narrative Radiology Service Progress Note PATIENT NAME: Bianca Delarosa DATE OF SERVICE: January 04, 2025 TIME: 8:38 AM PATIENT IDENTITY VERIFICATION COMPLETED USING TWO (2) IDENTIFIERS: Name and Date of confirmed by patient verbally and Name and Date of confirmed by identification band. FALL SCREENING: Has the patient had 2 falls in the last year or 1 fall with injury or currently using an Ambulatory Assistive Device (Walker, Cane, Wheelchair, Crutches, etc.)? No PATIENT GENDER DATA: Assigned male at PATIENT RELEVANT IMPLANT DATA REVIEWED: Yes PATIENT PRESENTS WITH AN IMPLANTABLE OR ATTACHED CASINO BANKER: No RADIOLOGY DEPARTMENT: MR; Exam(s) Completed: Upper MSK: Shoulder, right PERIPHERAL IV DATA: Not applicable SIGNED BY: KIESHA Benton January 04, 2025 8:38 AM documented in this encounter [facility] 01-04-2025 Note HNO ID: [id number] Author: DOMINIK BRYANT MRI Tech Service: Radiology Author Type: Operations Logistics Analyst Type: Progress Notes Filed: 01/04/2025 08:38 Note Text: Radiology Service Progress Note PATIENT NAME: Bianca Delarosa DATE OF SERVICE: January 04, 2025 TIME: 8:38 AM PATIENT IDENTITY VERIFICATION COMPLETED USING TWO (2) IDENTIFIERS: Name and Date of confirmed by patient verbally and Name and Date of confirmed by identification band. FALL SCREENING: Has the patient had 2 falls in the last year or 1 fall with injury or currently using an Ambulatory Assistive Device (Walker, Cane, Wheelchair, Crutches, etc.)? No PATIENT GENDER DATA: Assigned male at PATIENT RELEVANT IMPLANT DATA REVIEWED: Yes PATIENT PRESENTS WITH AN IMPLANTABLE OR ATTACHED CASINO BANKER: No RADIOLOGY DEPARTMENT: MR; Exam(s) Completed: Upper MSK: Shoulder, right PERIPHERAL IV DATA: Not applicable SIGNED BY: KIESHA Benton January 04, 2025 8:38 AM [facility] 12-30-2024 Telephone encounter Note Patient notified and voiced understanding. Tam Daugherty MA [facility] 12-30-2024 Miscellaneous Notes Patient notified and voiced understanding. Tam Daugherty MA Let patient know his x-ray did not show any pneumonia but I want him to complete the antibiotic and f/u with me as planned. documented in this encounter [facility] 12-30-2024 Telephone encounter Note Let patient know his x-ray did not show any pneumonia but I want him to complete the antibiotic and f/u with me as planned. [facility] 12-30-2024 History of Present illness Narrative Radiology Service Progress Note PATIENT NAME: Bianca Delarosa DATE OF SERVICE: December 30, 2024 TIME: 9:23 AM PATIENT IDENTITY VERIFICATION COMPLETED USING TWO (2) IDENTIFIERS: Name and Date of confirmed by patient verbally. FALL SCREENING: Has the patient had 2 falls in the last year or 1 fall with injury or currently using an Ambulatory Assistive Device (Walker, Cane, Wheelchair, Crutches, etc.)? No PATIENT GENDER DATA: Assigned male at PATIENT RELEVANT IMPLANT DATA REVIEWED: Not Applicable PATIENT PRESENTS WITH AN IMPLANTABLE OR ATTACHED CASINO BANKER: No RADIOLOGY DEPARTMENT: General X-ray: Exam(s) Completed: Chest X-Ray PERIPHERAL IV DATA: Not applicable SIGNED BY: MISSAEL Smith) December 30, 2024 9:23 AM documented in this encounter [facility] 12-30-2024 Note HNO ID: [id number] Author: CECE CORTEZ RT(R) Service: ? Author Type: Technologist Type: Progress Notes Filed: 12/30/2024 09:27 Note Text: Radiology Service Progress Note PATIENT NAME: Bianca Delarosa DATE OF SERVICE: December 30, 2024 TIME: 9:23 AM PATIENT IDENTITY VERIFICATION COMPLETED USING TWO (2) IDENTIFIERS: Name and Date of confirmed by patient verbally. FALL SCREENING: Has the patient had 2 falls in the last year or 1 fall with injury or currently using an Ambulatory Assistive Device (Walker, Cane, Wheelchair, Crutches, etc.)? No PATIENT GENDER DATA: Assigned male at PATIENT RELEVANT IMPLANT DATA REVIEWED: Not Applicable PATIENT PRESENTS WITH AN IMPLANTABLE OR ATTACHED CASINO BANKER: No RADIOLOGY DEPARTMENT: General X-ray: Exam(s) Completed: Chest X-Ray PERIPHERAL IV DATA: Not applicable SIGNED BY: Cece Cortez, RT(R) December 30, 2024 9:23 AM [facility] 12-30-2024 Instructions Humberto Jackson MD - 12/30/2024 9:03 AM EDT Please get non-fasting labs on or after 01/30/2025 Please get labs done on or after 06/20/2025 prior to your next visit. documented in this encounter [facility] 12-30-2024 Note HNO ID: [id number] Author: HUMBERTO JACKSON MD Service: ? Author Type: Physician Type: Progress Notes Filed: 12/30/2024 16:27 Note Text: Chief Complaint Patient presents with: Physical HPI Bianca Delarosa is a 49 year old male who presents here today for Physical Patient with hx of DM 2, hyperlipidemia, GERD, mood disorder, thyroid nodules, allergies, depression, migraines, insomnia, MIKE as well as those reviewed and addressed below Currently being evaluated for gynecomastia and abnormal imaging of brain, pituitary . Patient has appointment on 01/06/[address] Mckeon, Neurosurgery and Endo on 02/06/2025 Last week on had a URI, fevers and chills. Retsof ok yesterday but feeling winded with activity. SaO2 walking up stairs last night was 87-90% with home pulse ox. Has a dry cough. No ear pain or facial pain. Had a sore throat on and Monday. Has clear nasal drainage. No nausea, vomiting or diarrhea. Some body aches over the weekend. Has been taking some generic dayquel.. Doing ok with the current dose of methylphenidate. Past medical history, appointments, medications, allergies reviewed. 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 12/07/2022 Substance agreement signed 12/2022, Tox screen done 12/2022 Current use of proton pump inhibitor 09/26/2018 Diabetic eye exam ([facility]) 01/27/2017 Last eye exam: 03/05/2019 Diverticulosis 03/31/2014 Dyslipidemia 03/31/2014 Low HDL, High Trigs Elevated antinuclear antibody (JALEEL) level 03/31/2014 Family history of malignant neoplasm of gastrointestinal tract 03/31/2014 Fatty liver 10/28/2024 US: 10/2024 ISABELLA (generalized anxiety disorder) 06/22/2020 GERD without esophagitis 09/26/2018 Hiatal hernia 03/31/2014 History of COVID-19 09/23/20232021, 09/2023 Hx of colonic polyp 03/31/2014 Needs next colonoscopy 08/2022 Lump 11/16/2019 benign left palm Major depressive disorder with single episode, in partial remission ([facility]) 09/26/2018 Migraine without aura and without status migrainosus, not intractable 09/11/2015 Mood disorder ([facility]) 03/31/2014 Multiple thyroid nodules 02/27/[address] Lazaro 03/2018 Multiple thyroid nodules 02/27/2018 US 03/2020 per radiology no further f/u needed.. All benign Biopsy 03/[address] Lazaro. Benign. Obesity, Class II, BMI 35-39.9 10/21/2022 Obstructive sleep apnea syndrome 01/27/2017 On CPAP Other joint derangement, not elsewhere classified, lower leg 03/25/2013 Primary insomnia 07/28/2020 QT prolongation 04/20/2021 Seen [facility] 04/19/2021: Retsof to be benign and related to anti-depressants. No changes needed. TMJ (temporomandibular joint disorder) 03/31/2014 Right side Type 2 diabetes mellitus without complication, without long-term current use of insulin ([facility]) 01/19/2017 Well adult exam 12/17/2014 Last done:11/16/2019 Previous Surgical History PAST SURGICAL HISTORY Procedure Laterality Date APPENDECTOMY HX 2004 ARTHROTOMY W/MENISCUS REPAIR KNEE Right 04/2021 COLONOSCOPY 06/2012 Dr. Corrigan +polyp, repeat 5 yrs COLONOSCOPY 08/30/2022 repeat in 5 years COLONOSCOPY FLX DX W/COLLJ SPEC WHEN PFRMD 08/16/2017 Colonoscopy, repeat 5 yrs, Dr. Bliss PAST SURGICAL HISTORY OF 2009 benign cysts: 1 from head and 2 from neck TONSILLECTOMY AND ADENOIDECTOMY AGE 11/> 1979 TONSILLECTOMY HX Family History FAMILY HISTORY Problem Relation Age of Onset Colon Cancer Father 52 Coronary Artery Disease Father Coronary Artery Disease Mother 60's Hypertension Mother No Known Problems Brother No Known Problems Brother No Known Problems Brother Coronary Artery Disease Maternal Grandmother 60's Stroke Maternal Grandfather Colon Cancer Paternal Uncle 49 Alzheimer's Disease No Family History Prostate Cancer No Family History Breast Cancer No Family History Hyperlipidemia No Family History Kidney Disease No Family History Seizures No Family History Thyroid No Family History No Ocular Disease No Family History Patient Allergies ALLERGIES Allergen Reactions Topamax [Topiramate] Mental Status Change Unable to remember anything Celexa [Citalopram * Other: See Comments uneffective Effexor [Venlafaxin* Other: See Comments Sexual side affect Reglan [Metoclopram* Unknown Zoloft [Sertraline * Other: See Comments drowsy Current Medications Current Outpatient Medications on File Prior to Visit Medication Sig OLANZapine (ZYPREXA) 5 mg tablet Take 1 tablet by mouth daily at bedtime. methylphenidate LA (RITALIN LA) 20 mg biphasic capsule Take 1 capsule by mouth once daily for 30 days. DULoxetine (CYMBALTA) 30 mg capsule Take 1 capsule by mouth once daily. met (more content not included)... [facility] 12-30-2024 History of Present illness Narrative Images from the original note were not included. Chief Complaint Patient presents with: Physical HPI Bianca Delarosa is a 49 year old male who presents here today for Physical Patient with hx of DM 2, hyperlipidemia, GERD, mood disorder, thyroid nodules, allergies, depression, migraines, insomnia, MIKE as well as those reviewed and addressed below Currently being evaluated for gynecomastia and abnormal imaging of brain, pituitary . Patient has appointment on 01/06/[address] Mckeon, Neurosurgery and Endo on 02/06/2025 Last week on had a URI, fevers and chills. Retsof ok yesterday but feeling winded with activity. SaO2 walking up stairs last night was 87-90% with home pulse ox. Has a dry cough. No ear pain or facial pain. Had a sore throat on and Monday. Has clear nasal drainage. No nausea, vomiting or diarrhea. Some body aches over the weekend. Has been taking some generic dayquel.. Doing ok with the current dose of methylphenidate. Past medical history, appointments, medications, allergies reviewed. 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 12/07/2022 Substance agreement signed 12/2022, Tox screen done 12/2022 Current use of proton pump inhibitor 09/26/2018 Diabetic eye exam ([facility]) 01/27/2017 Last eye exam: 03/05/2019 Diverticulosis 03/31/2014 Dyslipidemia 03/31/2014 Low HDL, High Trigs Elevated antinuclear antibody (JALEEL) level 03/31/2014 Family history of malignant neoplasm of gastrointestinal tract 03/31/2014 Fatty liver 10/28/2024 US: 10/2024 ISABELLA (generalized anxiety disorder) 06/22/2020 GERD without esophagitis 09/26/2018 Hiatal hernia 03/31/2014 History of COVID-19 09/23/20232021, 09/2023 Hx of colonic polyp 03/31/2014 Needs next colonoscopy 08/2022 Lump 11/16/2019 benign left palm Major depressive disorder with single episode, in partial remission ([facility]) 09/26/2018 Migraine without aura and without status migrainosus, not intractable 09/11/2015 Mood disorder ([facility]) 03/31/2014 Multiple thyroid nodules 02/27/[address] Lazaro 03/2018 Multiple thyroid nodules 02/27/2018 US 03/2020 per radiology no further f/u needed.. All benign Biopsy 03/[address] Lazaro. Benign. Obesity, Class II, BMI 35-39.9 10/21/2022 Obstructive sleep apnea syndrome 01/27/2017 On CPAP Other joint derangement, not elsewhere classified, lower leg 03/25/2013 Primary insomnia 07/28/2020 QT prolongation 04/20/2021 Seen [facility] 04/19/2021: Retsof to be benign and related to anti-depressants. No changes needed. TMJ (temporomandibular joint disorder) 03/31/2014 Right side Type 2 diabetes mellitus without complication, without long-term current use of insulin (HCC) 01/19/2017 Well adult exam 12/17/2014 Last done:11/16/2019 Previous Surgical History PAST SURGICAL HISTORY Procedure Laterality Date APPENDECTOMY HX 2003 ARTHROTOMY W/MENISCUS REPAIR KNEE Right 04/2021 COLONOSCOPY 06/2012 Dr. Corrigan +polyp, repeat 5 yrs COLONOSCOPY 08/30/2022 repeat in 5 years COLONOSCOPY FLX DX W/COLLJ SPEC WHEN PFRMD 08/16/2017 Colonoscopy, repeat 5 yrs, Dr. Bliss PAST SURGICAL HISTORY OF 2008 benign cysts: 1 from head and 2 from neck TONSILLECTOMY & ADENOIDECTOMY AGE 11/> 1979 TONSILLECTOMY HX Family History FAMILY HISTORY Problem Relation Age of Onset Colon Cancer Father 52 Coronary Artery Disease Father Coronary Artery Disease Mother 60's Hypertension Mother No Known Problems Brother No Known Problems Brother No Known Problems Brother Coronary Artery Disease Maternal Grandmother 60's Stroke Maternal Grandfather Colon Cancer Paternal Uncle 49 Alzheimer's Disease No Family History Prostate Cancer No Family History Breast Cancer No Family History Hyperlipidemia No Family History Kidney Disease No Family History Seizures No Family History Thyroid No Family History No Ocular Disease No Family History Patient Allergies ALLERGIES Allergen Reactions Topamax [Topiramate] Mental Status Change Unable to remember anything Celexa [Citalopram * Other: See Comments uneffective Effexor [Venlafaxin* Other: See Comments Sexual side affect Reglan [Metoclopram* Unknown Zoloft [Sertraline * Other: See Comments drowsy Current Medications Current Outpatient Medications on File Prior to Visit Medication Sig OLANZapine (ZYPREXA) 5 mg tablet Take 1 tablet by mouth daily at bedtime. methylphenidate LA (RITALIN LA) 20 mg biphasic capsule Take 1 capsule by mouth once daily for 30 days. DULoxetine (CYMBALTA) 30 mg capsule Take 1 capsule by mouth once daily. methylphenidate CD (METADATE CD) 20 mg biphasic capsule Take 1 capsule by mouth once daily for 30 days. Blood-Glucose Sensor (FREESTYLE EVERT 3 SENSOR) agnes USE ONE SENSOR EVERY 14 DAY, IDDM, E11.9 sucralfate (CARAFATE) 1 gram tablet Take one tab with lunch and before bed. Fenofibrate 120 mg tab Take 1 tablet by mouth once daily. esomeprazole (NEXIUM) 40 mg capsule Take 1 capsule by mouth two times a day. atorvastatin (LIPITOR) 80 mg tablet Take 1 tablet by mouth once daily. busPIRone (BUSPAR) 15 mg tablet Take one tab by mouth twice a day. doxepin capsule 10 mg Take 1 capsule by mouth daily at bedtime. DULoxetine (CYMBALTA) 60 mg capsule Take 1 capsule by mouth once daily. TRESIBA FLEXTOUCH U-100 100 unit/mL (3 mL) injection pen Inject 60 units subcutaneous daily at bedtime. Dispense 60 mL for 90 day supply. HUMALOG KWIKPEN INSULIN 100 unit/mL Inject subcutaneously 20 units breakfast, 20 units lunch, 20 units dinner plus sliding scale up to 82 units daily. Dispense 75 mL for a 90 day supply. Insulin Wykoff, Disposable, (DROPLET PEN NEEDLE) 31 gauge x 3/16 Use 4 PEN NEEDLES to inject MEDICATION subcutaneously daily metFORMIN (GLUCOPHAGE) 500 mg tablet Take 2 tablets by mouth two times a day with meals. zonisamide (ZONEGRAN) 25 mg capsule Take 1 capsule by mouth once daily. multivitamin tablet Take 1 tablet by mouth once daily. No current facility-administered medications on file prior to visit. Social History Social History Tobacco Use Smoking status: Never Smokeless tobacco: Never Vaping Use Vaping status: Never Used Substance Use Topics Alcohol use: Yes Comment: Rarely Drug use: No Review of Symptoms REVIEW OF SYSTEMS GENERAL: No unintentional weight loss, see HPI HEENT: Negative for frequent or significant headaches, No changes in hearing or vision, no nose bleeds or other nasal problems. See HPI. Did have some mild sinus pressure last week. NECK: Negative for lumps, goiter, pain and significant neck swelling RESPIRATORY: Negative for hemoptysis, wheezing, see HPI CARDIOVASCULAR: Negative for chest pain, leg swelling, hypertension, CHF or palpitations GI: No nausea, vomiting, or diarrhea, No heartburn or reflux symptoms, and no blood : No history of dysuria, frequency or blood MUSCULOSKELETAL: see HPI SKIN: Negative for lesions, rash, and itching PSYCH: Negative mood disorder and recent psychosocial stressors. Current meds seem to be controlling things. With the URI has had some difficulty falling asleep the last few days. HEMATOLOGY/LYMPHOLOGY: Negative for prolonged bleeding, bruising easily or swollen nodes ENDOCRINE: Negative for cold or heat intolerance, symptoms of low BS's. NEURO: No history of headaches, syncope, paralysis, seizures or tremors EXAM: BP 118/74 Pulse 88 Resp 18 Ht 188 cm (6' 2) Wt 127.5 kg (281 lb) BMI 36.08 kg/m Last 5 Encounter Wt Readings: Date: Wt: 12/30/2024 127.5 kg (281 lb) 12/20/2024 130.2 kg (287 lb) 11/22/2024 130.6 kg (288 lb) 10/14/2024 130.6 kg (288 lb) 09/17/2024 131.1 kg (289 lb) General Appearance: Well appearing, alert, in no acute distress, well-hydrated, well nourished. and Obese. Skin: Skin color, texture, turgor normal, no suspicious rashes or lesions. Head: Normocephalic, no masses, lesions, tenderness or abnormalities. Eyes: Anicteric sclera. Pupils are equally round and reactive to light. Extraocular movements are intact. . Ears: External ears, TM's normal, canals clear. Nose/Sinuses: Nares normal, septum midline, mucosa normal, no drainage or sinus tenderness. Oropharynx: Lips, mucosa, and tongue normal, teeth and gums normal, oropharynx normal. Neck: Supple, no adenopathy; thyroid symmetric, normal size, no bruits. Lungs: No wheezing, rhonchi, rales. Has crackles in left lower base. Pulse ox with ambulation as below. . Heart: RRR without murmur, gallop, or rubs. No ectopy. Abdomen: Normal abdominal exam, Abdomen soft, non-tender. Bowel sounds normal. No masses, organomegaly. Extremities: No deformities, edema, skin discoloration, clubbing or cyanosis. Good capillary refill. . Musculoskeletal: Spine range of motion normal. Muscular strength intact, No joint swelling, deformity, or tenderness. Peripheral Pulses: Normal. Neurologic: Gait normal. Reflexes normal and symmetric. Sensation to light touch and crainal nerves 2-12 intact.. Genitalia: Normal, Penis normal. No urethral discharge. Scrotum normal to palpation. No hernia.. Rectal: Normal exam. With ambulation on RA his pulse ox was 91-94%. Diabetic Foot Exam: Feet: Shoes and socks removed, normal distal pulses, sensitive to 10 gm microfilament, vibratory exam within normal limits, and calluses noted bilaterally Skin: warm and dry Vascular Pulses: Normal SEMMES-SONU MONOFILAMENT TESTING Left Foot Right Foot Dorsal Surface Intact Dorsal Surface Intact Plantar Surface Intact Plantar Surface Intact Health Maintenance List Shingrix Vaccine(1 of 2) due on 2024 Annual PCP Team Chronic Disease Visit due on 12/20/2025 Colorectal Cancer Screening due on 08/30/2027 Diabetes Screening due on 12/21/2027 Lipid Screening due on 12/20/2029 DTaP,Tdap,Td Vaccine(3 - Td or Tdap) due on 04/13/2031 Hepatitis B Vaccine Completed Influenza Vaccine Completed Covid-19 Vaccine Completed Pneumococcal Vaccine: 50+ Completed Spirometry Discontinued Hepatitis C Screening Discontinued HIV Screening Discontinued Data reviewed Latest Ref Rng 05/21/2024 10/14/2024 11/22/2024 12/20/2024 WBC 3.70 - 11.00 k/uL 10.44 7.97 RBC 4.20 - 6.00 m/uL 4.99 4.40 Hemoglobin 13.0 - 17.0 g/dL 15.3 12.3 (L) Hematocrit 39.0 - 51.0 % 44.8 37.3 (L) MCV 80.0 - 100.0 fL 89.8 84.8 MCH 26.0 - 34.0 pg 30.7 28.0 MCHC 30.5 - 36.0 g/dL 34.2 33.0 RDW-CV 11.5 - 15.0 % 11.7 12.2 Platelet Count 150 - 400 k/uL 254 352 MPV 9.0 - 12.7 fL 12.9 (H) 12.5 Neut% % 61.2 57.1 Abs Neut (ANC) 1.45 - 7.50 k/uL 6.39 4.55 Lymph% % 31.6 33.2 Abs Lymph 1.00 - 4.00 k/uL 3.30 2.65 Tensas% % 4.7 6.0 Abs Tensas <0.87 k/uL 0.49 0.48 Eosin% % 1.6 2.5 Abs Eosin <0.46 k/uL 0.17 0.20 Baso% % 0.6 0.8 Abs Baso <0.11 k/uL 0.06 0.06 Immature Gran % % 0.3 0.4 IMMATURE GRANS (ABS) <0.10 k/uL 0.03 0.03 NRBC /100 WBC 0.0 0.0 Absolute nRBC <0.01 k/uL <0.01 <0.01 DTYPE Auto Auto Protein, Total 6.3 - 8.0 g/dL 6.7 6.5 Albumin 3.9 - 4.9 g/dL 4.3 4.5 Calcium 8.5 - 10.2 mg/dL 9.4 9.4 Bilirubin, Total 0.2 - 1.3 mg/dL 0.3 0.2 Alkaline Phosphatase 38 - 113 U/L 168 (H) 169 (H) Alkaline Phosphatase 38 - 113 U/L 169 (H) AST 14 - 40 U/L 36 18 ALT 10 - 54 U/L 24 12 Glucose 74 - 99 mg/dL 361 (H) 322 (H) BUN 9 - 24 mg/dL 9 12 Creatinine 0.73 - 1.22 mg/dL 0.73 0.68 (L) Sodium 136 - 144 mmol/L 133 (L) 138 Potassium 3.7 - 5.1 mmol/L 4.3 4.5 Chloride 98 - 107 mmol/L 98 103 CO2 22 - 30 mmol/L 22 23 Anion Gap 8 - 15 mmol/L 13 12 eGFR >=60 mL/min/1.73m 112 113 Total Cholesterol, Nonfasting <200 mg/dL 213 (H) 117 147 Triglycerides, Nonfasting <150 mg/dL 1,046 (H) 377 (H) 338 (H) HDL Cholesterol, Nonfasting >39 mg/dL 24 (L) 22 (L) 25 (L) LDL Cholesterol, Nonfasting <100 mg/dL -- 20 54 Non HDL Cholesterol, Nonfasting <130 mg/dL 189 (H) 95 122 VLDL Cholesterol, Nonfasting <30 mg/dL -- 75 (H) 68 (H) Total Chol/HDL Ratio, Nonfasting <5.10 mg/dL 8.88 (H) 5.32 (H) 5.88 (H) LDL/HDL Ratio, Nonfasting <2.54 mg/dL -- 0.91 2.16 Alk Phos Bone % 10.7 - 68.3 % 31.1 Bone Fraction 12.9 - 52.6 U/L 52.6 Alk Phos Liver % 26.0 - 86.2 % 51.1 Liver Fraction 16.0 - 69.3 U/L 86.4 (H) Alk Phos Intestine % 0.0 - 24.2 % 17.8 Intestine Fraction 0.0 - 16.3 U/L 30.1 (H) Hemoglobin A1C 4.3 - 5.6 % 11.9 (H) 11.7 (H) 10.5 (H) Estimated Average Glucose mg/dL 295 289 255 Mitochondrial Ab Screen Negative Negative Mitochondrial M2 IgG Quantitative <=20.0 Units 2.7 TSH 0.270 - 4.200 mIU/L 1.330 1.190 1.230 Testosterone 193 - 824 ng/dL 166 (L) Free T4 0.9 - 1.7 ng/dL 1.1 Prolactin 4.1 - 25.1 ng/mL 41.2 (H) Estradiol 17B <43 pg/mL <25 hCG Quantitative, Blood <5.0 mIU/mL <0.6 Vitamin B12 232 - 1,245 pg/mL 438 Magnesium 1.7 - 2.3 mg/dL 2.1 GGT 10 - 70 U/L 36 A/P ASSESSMENT/PLAN: 1. Well adult exam - ICD9: V70.0, ICD10: Z00.00 (primary diagnosis) - Counseled on healthy diet and regular exercise - Discussed need for and benefit of weight loss. BMI 36.08 kg/(m^2) - Follow up for annual exam in one year 2. Type 2 diabetes mellitus without complication, without long-term current use of insulin (HCC) - ICD9: 250.00, ICD10: E11.9 On meds and managed per endo - Continue current medications - Counseled on healthy diet and regular exercise - Discussed need for and benefit of weight loss. BMI 36.08 kg/(m^2) 3. Diabetic eye exam (HCC) - ICD9: V72.0, 250.00, ICD10: Z01.00, E11.9 - up to date 4. Dyslipidemia - ICD9: 272.4, ICD10: E78.5 - Improving control - Continue current medications - Counseled on healthy diet and regular exercise - Discussed need for and benefit of weight loss. BMI 36.08 kg/(m^2) 5. GERD without esophagitis - ICD9: 530.81, ICD10: K21.9 - Continue treatment with Nexium 40 mg BID 6. Migraine without aura and without status migrainosus, not intractable - ICD9: 346.10, ICD10: G43.009 - stable no changes. 7. Attention 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 - ICD9: 314.00, ICD10: F98.8 - cont Tx with methylphenidate. 8. Agitation - ICD9: 307.9, ICD10: R45.1 - stable with current meds no changes. 9. ISABELLA (generalized anxiety disorder) - ICD9: 300.02, ICD10: F41.1 - as per #8 10. Major depressive disorder with single episode, in partial remission (HCC) - ICD9: 296.25, ICD10: F32.4 - as per #8 11. Mood disorder (HCC) - ICD9: 296.90, ICD10: F39 - as per #8 12. Obesity, Class II, BMI 35-39.9 - ICD9: 278.00, ICD10: E66.812 - patient working on life style changes. 13. Obstructive sleep apnea syndrome - ICD9: 327.23, ICD10: G47.33 - should be wearing CPAP. 14. Primary insomnia - ICD9: 307.42, ICD10: F51.01 - stable no changes. 15. Fatty liver - ICD9: 571.8, ICD10: K76.0 FIB-4 Calculation: 0.74 at 12/20/2024 10:35 AM Calculated from: SGOT/AST: 18 U/L at 12/20/2024 10:35 AM SGPT/ALT: 12 U/L at 12/20/2024 10:35 AM Platelets: 352 k/uL at 12/20/2024 10:35 AM Age: 49 years Patient to continue work on diet and weight loss. 16. Gynecomastia, male - ICD9: 611.1, ICD10: N62 - will be seeing Endo in future and neurosurgery. 17. Abnormal finding on MRI of brain - ICD9: 793.0, ICD10: R90.89 - as per #16 18. Anemia, unspecified type - ICD9: 285.9, ICD10: D64.9 In a month check - IRON AND TIBC - COMPLETE BLOOD COUNT AND DIFFERENTIAL - FERRITIN - VITAMIN B12 - FOLATE, SERUM 19. Abnormal lung sounds - ICD9: 786.7, ICD10: R09.89 Check - XR CHEST 2V FRONTAL/LAT: suspect a LLL pneumonia - will place on Augmentin 875 mg twice a day for 10 days - will place on albuterol inhaler. 20. Callus of foot - ICD9: 700, ICD10: L84 - discussed care to prevent ulcer formation. 21. SOB (shortness of breath) - ICD9: 786.05, ICD10: R06.02 - as per #19 - continues pulse Ox while walking 3-4 min was normal. Requested Prescriptions Signed Prescriptions Disp Refills DULoxetine (CYMBALTA) 60 mg capsule 90 capsule 1 Sig: Take 1 capsule by mouth once daily. amoxicillin-clavulanate potassium (AUGMENTIN) 875-125 mg per tablet 20 tablet 0 Sig: Take 1 tablet by mouth every 12 hours for 10 days. albuterol HFA (PROVENTIL HFA, VENTOLIN HFA) 90 mcg/actuation inhaler 1 Each 0 Sig: Inhale 2 Puffs as instructed three times a day. F/u in 2 weeks for pneumonia. F/u 6 months routine check Lipid, LFT's and CBC prior I spent a total of 43 minutes on the date of the service which included preparing to see the patient, [id number] patient care, completing clinical documentation, performing a medically appropriate examination, counseling and educating the patient/family/caregiver and ordering medications, tests, or procedures. Humberto Jackson MD SENSITIVE EXAMINATION CONSENT: The sensitive examination was discussed with the Patient or Patient's Authorized Virtual Assistant. As applicable, any other physician, advance practice provider, medical student, or other health professional student that will be observing or involved in the sensitive examination for educational or training purposes was discussed with the Patient or Authorized Virtual Assistant. The Patient or Authorized Virtual Assistant has agreed to proceed with the sensitive examination. documented in this encounter [facility] 12-24-2024 Telephone encounter Note I spoke to patient confirming we can not do video appts for new patients. Spouse understood and confirmed day and time of appt [facility] 12-24-2024 Miscellaneous Notes I spoke to patient confirming we can not do video appts for new patients. Spouse understood and confirmed day and time of appt documented in this encounter [facility] 12-23-2024 Telephone encounter Note Patient Driss romero got a call from Dr Younger office he does not see patients with pituitary. Assisted with transfer to equipment scheduler, to assist with trying to find Dr that will see pituitary adenoma. [facility] 12-23-2024 Miscellaneous Notes Patient Driss romero got a call from Dr Younger office he does not see patients with pituitary. Assisted with transfer to equipment scheduler, to assist with trying to find Dr that will see pituitary adenoma. documented in this encounter [facility] 12-20-2024 Telephone encounter Note I spoke to patient informing her that Dr. GARCIA does not see if pituitary tumors and I will speak to Dr. Wyman and see if he will be willing to see patient as patient ENDO appt is not until February. was not happy but understood. [facility] 12-20-2024 Miscellaneous Notes I spoke to patient informing her that Dr. GARCIA does not see if pituitary tumors and I will speak to Dr. B and see if he will be willing to see patient as patient ENDO appt is not until February. was not happy but understood. documented in this encounter [facility] 12-20-2024 History of Present illness Narrative Chief Complaint Patient presents with: Follow Up HPI Bianca Delarosa is a 49 year old male who presents here today for follow up and discuss results of MRI. Patient also needs assistance for neurosurgeon. Patient with hx of DM 2, hyperlipidemia, GERD, mood disorder, thyroid nodules, allergies, depression, migraines, insomnia, MIKE as well as those reviewed and addressed below Patient has not had his blood work after MRI so he has not restarted the metformin. Patient had injured his right shoulder and had completed PT they suggested MRI. Patient was trying to wait but yesterday tripped over his feet and re-injured the left shoulder. With the PHYSICAL THERAPY he had more range of motion in the left shoulder but still has pain especially with use. Can still not lift things away from the body and throw things. X-ray of right shoulder 05/2024 was neg for acute issues. Past medical history, appointments, medications, allergies reviewed. 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 12/07/2022 Substance agreement signed 12/2022, Tox screen done 12/2022 Current use of proton pump inhibitor 09/26/2018 Diabetic eye exam (HCC) 01/27/2017 Last eye exam: 03/05/2019 Diverticulosis 03/31/2014 Dyslipidemia 03/31/2014 Low HDL, High Trigs Elevated antinuclear antibody (JALEEL) level 03/31/2014 Family history of malignant neoplasm of gastrointestinal tract 03/31/2014 Fatty liver 10/28/2024 US: 10/2024 ISABELLA (generalized anxiety disorder) 06/22/2020 GERD without esophagitis 09/26/2018 Hiatal hernia 03/31/2014 History of COVID-19 09/23/20232021, 09/2023 Hx of colonic polyp 03/31/2014 Needs next colonoscopy 08/2022 Lump 11/16/2019 benign left palm Major depressive disorder with single episode, 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 Lazaro 03/2018 Multiple thyroid nodules 02/27/2018 US 03/2020 per radiology no further f/u needed.. All benign Biopsy 03/2018 Dr. Lazaro. Benign. Obesity, Class II, BMI 35-39.9 10/21/2022 Obstructive sleep apnea syndrome 01/27/2017 On CPAP Other joint derangement, not elsewhere classified, lower leg 03/25/2013 Primary insomnia 07/28/2020 QT prolongation 04/20/2021 Seen [facility] 04/19/2021: Retsof to be benign and related to anti-depressants. No changes needed. TMJ (temporomandibular joint disorder) 03/31/2014 Right side Type 2 diabetes mellitus without complication, without long-term current use of insulin ([facility]) 01/19/2017 Well adult exam 12/17/2014 Last done:11/16/2019 Previous Surgical History PAST SURGICAL HISTORY Procedure Laterality Date APPENDECTOMY HX 2004 ARTHROTOMY W/MENISCUS REPAIR KNEE Right 04/2021 COLONOSCOPY 06/2012 Dr. Corrigan +polyp, repeat 5 yrs COLONOSCOPY 08/30/2022 repeat in 5 years COLONOSCOPY FLX DX W/COLLJ SPEC WHEN PFRMD 08/16/2017 Colonoscopy, repeat 5 yrs, Dr. Bliss PAST SURGICAL HISTORY OF 2008 benign cysts: 1 from head and 2 from neck TONSILLECTOMY & ADENOIDECTOMY AGE 11/> 1979 TONSILLECTOMY HX Family History FAMILY HISTORY Problem Relation Age of Onset Colon Cancer Father 52 Coronary Artery Disease Father Coronary Artery Disease Mother 60's Hypertension Mother No Known Problems Brother No Known Problems Brother No Known Problems Brother Coronary Artery Disease Maternal Grandmother 60's Stroke Maternal Grandfather Colon Cancer Paternal Uncle 49 Alzheimer's Disease No Family History Prostate Cancer No Family History Breast Cancer No Family History Hyperlipidemia No Family History Kidney Disease No Family History Seizures No Family History Thyroid No Family History No Ocular Disease No Family History Patient Allergies ALLERGIES Allergen Reactions Topamax [Topiramate] Mental Status Change Unable to remember anything Celexa [Citalopram * Other: See Comments uneffective Effexor [Venlafaxin* Other: See Comments Sexual side affect Reglan [Metoclopram* Unknown Zoloft [Sertraline * Other: See Comments drowsy Current Medications Current Outpatient Medications on File Prior to Visit Medication Sig methylphenidate LA (RITALIN LA) 20 mg biphasic capsule Take 1 capsule by mouth once daily for 30 days. DULoxetine (CYMBALTA) 30 mg capsule Take 1 capsule by mouth once daily. methylphenidate CD (METADATE CD) 20 mg biphasic capsule Take 1 capsule by mouth once daily for 30 days. Blood-Glucose Sensor (FREESTYLE EVERT 3 SENSOR) agnes USE ONE SENSOR EVERY 14 DAY, IDDM, E11.9 sucralfate (CARAFATE) 1 gram tablet Take one tab with lunch and before bed. Fenofibrate 120 mg tab Take 1 tablet by mouth once daily. esomeprazole (NEXIUM) 40 mg capsule Take 1 capsule by mouth two times a day. atorvastatin (LIPITOR) 80 mg tablet Take 1 tablet by mouth once daily. busPIRone (BUSPAR) 15 mg tablet Take one tab by mouth twice a day. doxepin capsule 10 mg Take 1 capsule by mouth daily at bedtime. DULoxetine (CYMBALTA) 60 mg capsule Take 1 capsule by mouth once daily. OLANZapine (ZYPREXA) 5 mg tablet Take 1 tablet by mouth daily at bedtime. TRESIBA FLEXTOUCH U-100 100 unit/mL (3 mL) injection pen Inject 60 units subcutaneous daily at bedtime. Dispense 60 mL for 90 day supply. HUMALOG KWIKPEN INSULIN 100 unit/mL Inject subcutaneously 20 units breakfast, 20 units lunch, 20 units dinner plus sliding scale up to 82 units daily. Dispense 75 mL for a 90 day supply. Insulin Wykoff, Disposable, (DROPLET PEN NEEDLE) 31 gauge x 3/16 Use 4 PEN NEEDLES to inject MEDICATION subcutaneously daily metFORMIN (GLUCOPHAGE) 500 mg tablet Take 2 tablets by mouth two times a day with meals. zonisamide (ZONEGRAN) 25 mg capsule Take 1 capsule by mouth once daily. multivitamin tablet Take 1 tablet by mouth once daily. No current facility-administered medications on file prior to visit. Social History Social History Tobacco Use Smoking status: Never Smokeless tobacco: Never Vaping Use Vaping status: Never Used Substance Use Topics Alcohol use: Yes Comment: Rarely Drug use: No Review of Symptoms REVIEW OF SYSTEMS Still has the mass under the right acerola. Has not increased in size. No . Pin has been stable. EXAM: BP 128/84 Pulse 88 Resp 16 Wt 130.2 kg (287 lb) BMI 36.83 kg/m General Appearance: Well appearing, alert, in no acute distress, well-hydrated, well nourished.. Breast: has small soft tender mass under the right acerola. Health Maintenance List Diabetic Foot Exam due on 07/07/2024 Urine Albumin:Creatinine Ratio due on 08/11/2024 Shingrix Vaccine(1 of 2) due on 2024 HbA1C due on 01/12/2025 Dilated Retinal Exam due on 02/22/2025 LDL Cholesterol due on 10/14/2025 Annual PCP Team Chronic Disease Visit due on 11/22/2025 Colorectal Cancer Screening due on 08/30/2027 Pneumococcal Vaccine: 50+(3 of 3 - PCV20 or PCV21) due on 12/06/2028 DTaP,Tdap,Td Vaccine(3 - Td or Tdap) due on 04/13/2031 Hepatitis B Vaccine Completed Influenza Vaccine Completed Covid-19 Vaccine Completed Spirometry Discontinued Hepatitis C Screening Discontinued HIV Screening Discontinued Data reviewed Latest Ref Rng 11/22/2024 LH 1.7 - 8.6 mIU/mL 3.7 FSH 1.5 - 12.4 mIU/mL 7.2 Testosterone 193 - 824 ng/dL 166 (L) Free T4 0.9 - 1.7 ng/dL 1.1 TSH 0.270 - 4.200 mIU/L 1.190 Prolactin 4.1 - 25.1 ng/mL 41.2 (H) Estradiol 17B <43 pg/mL <25 hCG Quantitative, Blood <5.0 mIU/mL <0.6 Results MRI BRAIN WO/W IVCON (Acc#[id number] ) (Order [id number]) Patient Info Patient Name Sex Bianca Morales ([id number]) Male 1975 12/11/2024 11:22 AM - Radiology, [facility] Results-Findings * * *Final Report* * * DATE OF EXAM: Dec 11 2024 10:59AM [id number] - MRI BRAIN WO/W IVCON / PROCEDURE REASON: multiple diagnoses * * * * Physician Interpretation * * * * Examination performed: MRI of the pituitary without and with contrast. MR Contrast: Dotarem Contrast Dose (cc): 10 Route of Administration: Intravenous Clinical indication: Gynecomastia and low testosterone. Comparison: None. Findings: Examination is focused on the pituitary gland. No acute infarct. Imaged brain parenchyma demonstrates no gross mass effect, midline shift, or hydrocephalus. Minimal nonspecific white matter change. Skull base and extra cranial soft tissues are unremarkable. Cavernous sinus and Meckel's cave are normal bilaterally. No abnormal enhancement following contrast administration. Convex upper margin of the pituitary gland which measures maximum craniocaudal dimension of 8 mm. Homogeneous enhancement. Impression: Convex upper margin of the pituitary gland could reflect an underlying lesion/adenoma or pituitary hyperplasia. Franchise Specialist: GORGE Transcribe Date/Time: Dec 11 2024 11:13A Dictated by : DAVID FAY MD This examination was interpreted and the report reviewed and electronically signed by: DAVID FAY MD on Dec 11 2024 11:19AM EST Results XR SHOULDER GENERAL 3V OR MORE AP/TRUE AP/OTHER RIGHT (Acc#[id number] ) (Order [id number]) Patient Info Patient Name Sex Bianca Morales ([id number]) Male 1975 05/26/2024 7:34 PM - Radiology, [facility] Impression IMPRESSION: No acute bone abnormality. [facility]ise [facility] Transcribe Date/Time: May 26 2024 7:31P Dictated by : MARYANN MURILLO MD This examination was interpreted and the report reviewed and electronically signed by: MARYANN MURILLO MD on May 26 2024 7:32PM EST Results-Findings * * *Final Report* * * DATE OF EXAM: May 21 2024 4:17PM [id number] - XR SHLDR >/=3V AP/JUVENCIO AP/OTHR RT / PROCEDURE REASON: Acute pain of right shoulder * * * * Physician Interpretation * * * * XR SHLDR >/=3V AP/JUVENCIO AP/OTHR RT HISTORY: Acute pain of right shoulder COMPARISON: None. FINDINGS: No evidence of fracture, dislocation, or destructive process. Normal acromioclavicular joint. Normal glenohumeral joint. _ A/P ASSESSMENT/PLAN: 1. Gynecomastia - ICD9: 611.1, ICD10: N62 (primary diagnosis) - CONSULT TO NEUROSURGERY: Dr. Younger at [facility] - patient to keep endo appt. 2. Acute pain of right shoulder - ICD9: 719.41, ICD10: M25.511 - patient has completed conservative Tx and though his ROM is better he continues to have pain and weakness. Need MRI to further eval the muscles that support the shoulder and R/O a rotator cuff tear . 3. Elevated prolactin level - ICD9: 790.99, ICD10: R79.89 - CONSULT TO NEUROSURGERY 4. Pituitary adenoma (HCC) - ICD9: 227.3, ICD10: D35.2 - CONSULT TO NEUROSURGERY Patient to go get labs. Humberto Jackson MD documented in this encounter [facility] 12-20-2024 Note HNO ID: [id number] Author: HUMBERTO JACKSON MD Service: ? Author Type: Physician Type: Progress Notes Filed: 12/20/2024 12:26 Note Text: Chief Complaint Patient presents with: Follow Up HPI Bianca Delarosa is a 49 year old male who presents here today for follow up and discuss results of MRI. Patient also needs assistance for neurosurgeon. Patient with hx of DM 2, hyperlipidemia, GERD, mood disorder, thyroid nodules, allergies, depression, migraines, insomnia, MIKE as well as those reviewed and addressed below Patient has not had his blood work after MRI so he has not restarted the metformin. Patient had injured his right shoulder and had completed PT they suggested MRI. Patient was trying to wait but yesterday tripped over his feet and re-injured the left shoulder. With the PHYSICAL THERAPY he had more range of motion in the left shoulder but still has pain especially with use. Can still not lift things away from the body and throw things. X-ray of right shoulder 05/2024 was neg for acute issues. Past medical history, appointments, medications, allergies reviewed. 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 12/07/2022 Substance agreement signed 12/2022, Tox screen done 12/2022 Current use of proton pump inhibitor 09/26/2018 Diabetic eye exam (HCC) 01/27/2017 Last eye exam: 03/05/2019 Diverticulosis 03/31/2014 Dyslipidemia 03/31/2014 Low HDL, High Trigs Elevated antinuclear antibody (JAELEL) level 03/31/2014 Family history of malignant neoplasm of gastrointestinal tract 03/31/2014 Fatty liver 10/28/2024 US: 10/2024 ISABELLA (generalized anxiety disorder) 06/22/2020 GERD without esophagitis 09/26/2018 Hiatal hernia 03/31/2014 History of COVID-19 09/23/20232021, 09/2023 Hx of colonic polyp 03/31/2014 Needs next colonoscopy 08/2022 Lump 11/16/2019 benign left palm Major depressive disorder with single episode, in partial remission ([facility]) 09/26/2018 Migraine without aura and without status migrainosus, not intractable 09/11/2015 Mood disorder ([facility]) 03/31/2014 Multiple thyroid nodules 02/27/[address] Lazaro 03/2018 Multiple thyroid nodules 02/27/2018 US 03/2020 per radiology no further f/u needed.. All benign Biopsy 03/[address] Lazaro. Benign. Obesity, Class II, BMI 35-39.9 10/21/2022 Obstructive sleep apnea syndrome 01/27/2017 On CPAP Other joint derangement, not elsewhere classified, lower leg 03/25/2013 Primary insomnia 07/28/2020 QT prolongation 04/20/2021 Seen [facility] 04/19/2021: Retsof to be benign and related to anti-depressants. No changes needed. TMJ (temporomandibular joint disorder) 03/31/2014 Right side Type 2 diabetes mellitus without complication, without long-term current use of insulin (HCC) 01/19/2017 Well adult exam 12/17/2014 Last done:11/16/2019 Previous Surgical History PAST SURGICAL HISTORY Procedure Laterality Date APPENDECTOMY HX 2004 ARTHROTOMY W/MENISCUS REPAIR KNEE Right 04/2021 COLONOSCOPY 06/2012 Dr. Corrigan +polyp, repeat 5 yrs COLONOSCOPY 08/30/2022 repeat in 5 years COLONOSCOPY FLX DX W/COLLJ SPEC WHEN PFRMD 08/16/2017 Colonoscopy, repeat 5 yrs, Dr. Bliss PAST SURGICAL HISTORY OF 2009 benign cysts: 1 from head and 2 from neck TONSILLECTOMY AND ADENOIDECTOMY AGE 11/> 1979 TONSILLECTOMY HX Family History FAMILY HISTORY Problem Relation Age of Onset Colon Cancer Father 52 Coronary Artery Disease Father Coronary Artery Disease Mother 60's Hypertension Mother No Known Problems Brother No Known Problems Brother No Known Problems Brother Coronary Artery Disease Maternal Grandmother 60's Stroke Maternal Grandfather Colon Cancer Paternal Uncle 49 Alzheimer's Disease No Family History Prostate Cancer No Family History Breast Cancer No Family History Hyperlipidemia No Family History Kidney Disease No Family History Seizures No Family History Thyroid No Family History No Ocular Disease No Family History Patient Allergies ALLERGIES Allergen Reactions Topamax [Topiramate] Mental Status Change Unable to remember anything Celexa [Citalopram * Other: See Comments uneffective Effexor [Venlafaxin* Other: See Comments Sexual side affect Reglan [Metoclopram* Unknown Zoloft [Sertraline * Other: See Comments drowsy Current Medications Current Outpatient Medications on File Prior to Visit Medication Sig methylphenidate LA (RITALIN LA) 20 mg biphasic capsule Take 1 capsule by mouth once daily for 30 days. DULoxetine (CYMBALTA) 30 mg capsule Take 1 capsule by mouth once daily. methylphenidate CD (METADATE CD) 20 mg biphasic capsule Take 1 capsule by mouth once daily for 30 days. Blood-Glucose Sen (more content not included)... [facility] 12-16-2024 Telephone encounter Note ----- Message from Juhi Wyman sent at 12/16/2024 2:11 PM EDT ----- Patient scheduled himself via [employer] for consult. ----- Message ----- From: Tam Daugherty MA Sent: 12/16/2024 9:27 AM EDT To: [facility] Clerical Pool [facility] 12-16-2024 Miscellaneous Notes ----- Message from Juhi Wyman sent at 12/16/2024 2:11 PM EDT ----- Patient scheduled himself via [facility] for consult. ----- Message ----- From: Tam Daugherty MA Sent: 12/16/2024 9:27 AM EDT To: [facility] Clerical Pool Please assist with scheduling neurosurgery. Tam Daugherty MA Let patient I'll place a referral to see Endo. Which we have [facility]. I know I se he has an appt with Endocrine/Pituitary at [facility] on 02/06/2025 and this is who can help address the testosterone level. Pt notified of results and instructions. Pt verbalizes understanding and was assisted in transfer to schedule MRI. Pt advises that he saw his low testosterone result on My Chart and questions what he should do about this. Carmelo Lopez LPN Let patient know the MRI does show a possibility of a abnormality in his pituitary. I want to have him see a neurosurgeon to get their opinion. documented in this encounter [facility] 12-16-2024 Telephone encounter Note Patient notified via my chart. Tam Daugherty MA [facility] 12-16-2024 Miscellaneous Notes Patient notified via my chart. Tam Daugherty MA documented in this encounter [facility] 12-16-2024 Telephone encounter Note Please assist with scheduling neurosurgery. Tam Daugherty MA [facility] 2024 Telephone encounter Note [facility] NEW PATIENT REFERRAL TRIAGE Referral source:self No referring provider defined for this encounter. Referral Reason: for a second opinion on neurological symptoms Care Everywhere Completed Connection: [x]Yes or []No MyChart Dot Phrase Sent if Records were not sent MyChart Account?: [x]Yes or []No MyChart Dot Phrase Sent: Date 2024 Laurie Gonzales LPN [facility] 2024 Miscellaneous Notes [facility] NEW PATIENT REFERRAL TRIAGE Referral source:self No referring provider defined for this encounter. Referral Reason: for a second opinion on neurological symptoms Care Everywhere Completed Connection: [x]Yes or []No MyChart Dot Phrase Sent if Records were not sent MyChart Account?: [x]Yes or []No MyChart Dot Phrase Sent: Date 2024 Laurie Gonzales LPN documented in this encounter [facility] 2024 Telephone encounter Note Let patient I'll place a referral to see Endo. Which we have [facility]. I know I se he has an appt with Endocrine/Pituitary at [facility] on 02/06/2025 and this is who can help address the testosterone level. [facility] 12-12-2024 Telephone encounter Note Pt notified of results and instructions. Pt verbalizes understanding and was assisted in transfer to schedule MRI. Pt advises that he saw his low testosterone result on My Chart and questions what he should do about this. aCrmelo Lopez LPN [facility] 12-12-2024 Telephone encounter Note Patient has been scheduled and confirmed Radha Bland December 12, 2024 10:[address] [facility] 12-12-2024 Miscellaneous Notes Patient has been scheduled and confirmed Radha Bland December 12, 2024 10:15 AM Time Frame: Next available If unable to obtain an appointment within requested time frame, please contact appropriate health care marketing manager for scheduling access Provider: Miles Raymond Referring: Humberto Jackson MD Please instruct patient to hand carry/ upload images prior to appt Dx: pituitary adenoma Patient: Bianca Delarosa Address: Bianca Delarosa [id number] [place] [address] Per Triage: Bianca Delarosa is a 48 year old male that requests evaluation of previously diagnosed pituitary adenoma during work up for gynecomastia. Patient expectations: New Consult Tumor Specifics: Location: pituitary Previous Evaluations: MRI w/wo contrast * * *Final Report* * * DATE OF EXAM: Dec 11 2024 10:59AM BRM [id number] - MRI BRAIN WO/W IVCON / PROCEDURE REASON: multiple diagnoses * * * * Physician Interpretation * * * * Examination performed: MRI of the pituitary without and with contrast. MR Contrast: Dotarem Contrast Dose (cc): 10 Route of Administration: Intravenous Clinical indication: Gynecomastia and low testosterone. Comparison: None. Findings: Examination is focused on the pituitary gland. No acute infarct. Imaged brain parenchyma demonstrates no gross mass effect, midline shift, or hydrocephalus. Minimal nonspecific white matter change. Skull base and extra cranial soft tissues are unremarkable. Cavernous sinus and Meckel's cave are normal bilaterally. No abnormal enhancement following contrast administration. Convex upper margin of the pituitary gland which measures maximum craniocaudal dimension of 8 mm. Homogeneous enhancement. Impression: Convex upper margin of the pituitary gland could reflect an underlying lesion/adenoma or pituitary hyperplasia. Franchise Specialist: GORGE Transcribe Date/Time: Dec 11 2024 11:13A Dictated by : DAVID FAY MD This examination was interpreted and the report reviewed and electronically signed by: DAVID FAY MD on Dec 11 2024 11:19AM EST Endocrinology Evaluation Latest Reference Range & Units 11/22/24 08:50 Free T4 0.9 - 1.7 ng/dL 1.1 TSH 0.270 - 4.200 mIU/L 1.190 Estradiol 17B <43 pg/mL <25 FSH 1.5 - 12.4 mIU/mL 7.2 hCG Quantitative, Blood <5.0 mIU/mL <0.6 LH 1.7 - 8.6 mIU/mL 3.7 Prolactin 4.1 - 25.1 ng/mL 41.2 (H) Testosterone 193 - 824 ng/dL 166 (L) (H): Data is abnormally high (L): Data is abnormally low Corazon Reed APRN.CNP December 12, 2024 Request Summary [[id number]] Procedure: CONSULT TO NEUROSURGERY Status: Needs Scheduling Requested appt date: Authorizing: Humberto Jackson MD in [facility] [facility] Referral: [id number] (Authorized) Expires: 12/11/2025 Priority: Routine Diagnosis: Gynecomastia, male [N62] Elevated prolactin level [R79.89] Abnormal finding on MRI of brain [R90.89] Order Specific Questions Does consulting provider have [facility] Epic access? Yes [facility] Brain Tumor documented in this encounter [facility] 12-12-2024 Telephone encounter Note Time Frame: Next available If unable to obtain an appointment within requested time frame, please contact appropriate health care marketing manager for scheduling access Provider: Miles Raymond Referring: Humberto Jackson MD Please instruct patient to hand carry/ upload images prior to appt Dx: pituitary adenoma Patient: Bianca Delarosa Address: Bianca Delarosa [phone] [place] [address] Per Triage: Bianca Delarosa is a 48 year old male that requests evaluation of previously diagnosed pituitary adenoma during work up for gynecomastia. Patient expectations: New Consult Tumor Specifics: Location: pituitary Previous Evaluations: MRI w/wo contrast * * *Final Report* * * DATE OF EXAM: Dec 11 2024 10:59AM [facility] 0295 - MRI BRAIN WO/W IVCON / PROCEDURE REASON: multiple diagnoses * * * * Physician Interpretation * * * * Examination performed: MRI of the pituitary without and with contrast. MR Contrast: Dotarem Contrast Dose (cc): 10 Route of Administration: Intravenous Clinical indication: Gynecomastia and low testosterone. Comparison: None. Findings: Examination is focused on the pituitary gland. No acute infarct. Imaged brain parenchyma demonstrates no gross mass effect, midline shift, or hydrocephalus. Minimal nonspecific white matter change. Skull base and extra cranial soft tissues are unremarkable. Cavernous sinus and Meckel's cave are normal bilaterally. No abnormal enhancement following contrast administration. Convex upper margin of the pituitary gland which measures maximum craniocaudal dimension of 8 mm. Homogeneous enhancement. Impression: Convex upper margin of the pituitary gland could reflect an underlying lesion/adenoma or pituitary hyperplasia. Franchise Specialist: GORGE Transcribe Date/Time: Dec 11 2024 11:13A Dictated by : DAVID FAY MD This examination was interpreted and the report reviewed and electronically signed by: DAVID FAY MD on Dec 11 2024 11:19AM EST Endocrinology Evaluation Latest Reference Range & Units 11/22/24 08:50 Free T4 0.9 - 1.7 ng/dL 1.1 TSH 0.270 - 4.200 mIU/L 1.190 Estradiol 17B <43 pg/mL <25 FSH 1.5 - 12.4 mIU/mL 7.2 hCG Quantitative, Blood <5.0 mIU/mL <0.6 LH 1.7 - 8.6 mIU/mL 3.7 Prolactin 4.1 - 25.1 ng/mL 41.2 (H) Testosterone 193 - 824 ng/dL 166 (L) (H): Data is abnormally high (L): Data is abnormally low Corazon Reed APRN.CNP December 12, 2024 [facility] Work Phone: 12-12-2024 Telephone encounter Note Request Summary [[id number]] Procedure: CONSULT TO NEUROSURGERY Status: Needs Scheduling Requested appt date: Authorizing: Humberto Jackson MD in [facility] Referral: [id number] (Authorized) Expires: 12/11/2025 Priority: Routine Diagnosis: Gynecomastia, male [N62] Elevated prolactin level [R79.89] Abnormal finding on MRI of brain [R90.89] Order Specific Questions Does consulting provider have [facility] Epic access? Yes [facility] Brain Tumor [facility] 12-11-2024 Telephone encounter Note Let patient know the MRI does show a possibility of a abnormality in his pituitary. I want to have him see a neurosurgeon to get their opinion. [facility] 12-11-2024 History of Present illness Narrative Radiology Service Progress Note DATE OF SERVICE: December 11, 2024 TIME: 10:04 AM PATIENT IDENTITY VERIFICATION COMPLETED USING TWO (2) STANDARD IDENTIFIERS: Name and Date of confirmed by patient verbally. FALL SCREENING: Has the patient had 2 falls in the last year or 1 fall with injury or currently using an Ambulatory Assistive Device (Walker, Cane, Wheelchair, Crutches, etc.)? No PATIENT GENDER DATA: Assigned male at ALLERGIES: Reviewed and unchanged CONTRAST ALLERGY: No EXAM: MRI - CONTRAST TYPE: GROUP II IV SITE: Ambulatory: A peripheral IV was started in the Left antecubital site with a Angio cath: 22 gauge. and A Saline lock was inserted per protocol IV SITE APPEARANCE: Clean,Dry and Intact SIGNATURE: Janae Cunningham RN PATIENT NAME: Bianca Delarosa DATE: December 11, 2024 TIME: 10:04 AM Radiology Service Progress Note PATIENT NAME: Bianca Delarosa DATE OF SERVICE: December 11, 2024 TIME: 10:45 AM PATIENT IDENTITY VERIFICATION COMPLETED USING TWO (2) IDENTIFIERS: Name and Date of confirmed by patient verbally. FALL SCREENING: Has the patient had 2 falls in the last year or 1 fall with injury or currently using an Ambulatory Assistive Device (Walker, Cane, Wheelchair, Crutches, etc.)? No PATIENT GENDER DATA: Assigned male at PATIENT RELEVANT IMPLANT DATA REVIEWED: Not Applicable PATIENT PRESENTS WITH AN IMPLANTABLE OR ATTACHED CASINO BANKER: No RADIOLOGY DEPARTMENT: MR; Exam(s) Completed: Head: Routine Brain PERIPHERAL IV DATA: Site assessment: Clean,Dry and Intact, Site disposition Discontinued SIGNED BY: RT Logan(Lino) December 11, 2024 10:45 AM documented in this encounter [facility] 12-11-2024 Note HNO ID: [id number] Author: JANAE CUNNINGHAM RN Service: Radiology Author Type: Registered Nurse Type: Progress Notes Filed: 12/11/2024 10:06 Note Text: Radiology Service Progress Note DATE OF SERVICE: December 11, 2024 TIME: 10:04 AM PATIENT IDENTITY VERIFICATION COMPLETED USING TWO (2) STANDARD IDENTIFIERS: Name and Date of confirmed by patient verbally. FALL SCREENING: Has the patient had 2 falls in the last year or 1 fall with injury or currently using an Ambulatory Assistive Device (Walker, Cane, Wheelchair, Crutches, etc.)? No PATIENT GENDER DATA: Assigned male at ALLERGIES: Reviewed and unchanged CONTRAST ALLERGY: No EXAM: MRI - CONTRAST TYPE: GROUP II IV SITE: Ambulatory: A peripheral IV was started in the Left antecubital site with a Angio cath: 22 gauge. and A Saline lock was inserted per protocol IV SITE APPEARANCE: Clean,Dry and Intact SIGNATURE: Janae Cunningham RN PATIENT NAME: Bianca Delarosa DATE: December 11, 2024 TIME: 10:04 AM [facility] 12-11-2024 Note HNO ID: [id number] Author: ARIADNA HERNANDES RT(Lino) Service: ? Author Type: Operations Logistics Analyst Type: Progress Notes Filed: 12/11/2024 10:57 Note Text: Radiology Service Progress Note PATIENT NAME: Bianca Delarosa DATE OF SERVICE: December 11, 2024 TIME: 10:45 AM PATIENT IDENTITY VERIFICATION COMPLETED USING TWO (2) IDENTIFIERS: Name and Date of confirmed by patient verbally. FALL SCREENING: Has the patient had 2 falls in the last year or 1 fall with injury or currently using an Ambulatory Assistive Device (Walker, Cane, Wheelchair, Crutches, etc.)? No PATIENT GENDER DATA: Assigned male at PATIENT RELEVANT IMPLANT DATA REVIEWED: Not Applicable PATIENT PRESENTS WITH AN IMPLANTABLE OR ATTACHED CASINO BANKER: No RADIOLOGY DEPARTMENT: MR; Exam(s) Completed: Head: Routine Brain PERIPHERAL IV DATA: Site assessment: Clean,Dry and Intact, Site disposition Discontinued SIGNED BY: RT Logan(R) December 11, 2024 10:45 AM [facility] 12-09-2024 Telephone encounter Note Let p-t know I tried sending a different formulation of the methylphenidate to [facility]. If still an issue let me know. The following approved medication requests have been transmitted electronically. Requested Prescriptions Signed Prescriptions Disp Refills methylphenidate LA (RITALIN LA) 20 mg biphasic capsule 30 capsule 0 Sig: Take 1 capsule by mouth once daily for 30 days. Humberto Jackson MD [facility] 12-09-2024 Miscellaneous Notes Let p-t know I tried sending a different formulation of the methylphenidate to [facility]. If still an issue let me know. The following approved medication requests have been transmitted electronically. Requested Prescriptions Signed Prescriptions Disp Refills methylphenidate LA (RITALIN LA) 20 mg biphasic capsule 30 capsule 0 Sig: Take 1 capsule by mouth once daily for 30 days. Humberto Jackson MD documented in this encounter [facility] 12-04-2024 Telephone encounter Note Patient notified of results and provider's instructions. Patient verbalizes understanding. Juhi Murillo RN [facility] 12-04-2024 Miscellaneous Notes Patient notified of results and provider's instructions. Patient verbalizes understanding. Juhi Murillo RN Left message for pt to contact office. Carmelo Lopez LPN Let patient know the mammogram and US do demonstrate benign appearing gynecomastia (breat tissue) behind the right acerola. I see that his MRI is scheduled for next week. Will will wait for that. Remind him not to take his metformin the day of the MRI and that he needs to get the lab test two days after the MRI to see if kidneys are ok so we can let him know to restart the metformin. documented in this encounter [facility] 12-04-2024 Telephone encounter Note Left message for pt to contact office. Carmelo Lopez LPN [facility] 12-03-2024 Telephone encounter Note Let patient know the mammogram and US do demonstrate benign appearing gynecomastia (breat tissue) behind the right acerola. I see that his MRI is scheduled for next week. Will will wait for that. Remind him not to take his metformin the day of the MRI and that he needs to get the lab test two days after the MRI to see if kidneys are ok so we can let him know to restart the metformin. [facility] 12-03-2024 History of Present illness Narrative Radiology Service Progress Note PATIENT NAME: Bianca Delarosa DATE OF SERVICE: December 03, 2024 TIME: 1:57 PM PATIENT IDENTITY VERIFICATION COMPLETED USING TWO (2) IDENTIFIERS: Name and Date of confirmed by patient verbally. FALL SCREENING: Has the patient had 2 falls in the last year or 1 fall with injury or currently using an Ambulatory Assistive Device (Walker, Cane, Wheelchair, Crutches, etc.)? No PATIENT GENDER DATA: Assigned male at PATIENT RELEVANT IMPLANT DATA REVIEWED: Not Applicable PATIENT PRESENTS WITH AN IMPLANTABLE OR ATTACHED CASINO BANKER: No RADIOLOGY DEPARTMENT: Ultrasound PERIPHERAL IV DATA: Not applicable SIGNED BY: Berkley García RDMS [facility] December 03, 2024 1:57 PM documented in this encounter [facility] 12-03-2024 Note HNO ID: [id number] Author: BERKLEY GARCÍA RDMS Service: ? Author Type: Crime Laboratory Analyst Type: Progress Notes Filed: 12/03/2024 13:57 Note Text: Radiology Service Progress Note PATIENT NAME: Bianca Delarosa DATE OF SERVICE: December 03, 2024 TIME: 1:57 PM PATIENT IDENTITY VERIFICATION COMPLETED USING TWO (2) IDENTIFIERS: Name and Date of confirmed by patient verbally. FALL SCREENING: Has the patient had 2 falls in the last year or 1 fall with injury or currently using an Ambulatory Assistive Device (Walker, Cane, Wheelchair, Crutches, etc.)? No PATIENT GENDER DATA: Assigned male at PATIENT RELEVANT IMPLANT DATA REVIEWED: Not Applicable PATIENT PRESENTS WITH AN IMPLANTABLE OR ATTACHED CASINO BANKER: No RADIOLOGY DEPARTMENT: Ultrasound PERIPHERAL IV DATA: Not applicable SIGNED BY: Berkley García RDMS RVT December 03, 2024 1:57 PM [facility] 12-03-2024 History of Present illness Narrative Radiology Service Progress Note PATIENT NAME: Bianca Delarosa DATE OF SERVICE: December 03, 2024 TIME: 8:15 AM PATIENT IDENTITY VERIFICATION COMPLETED USING TWO (2) IDENTIFIERS: Name and Date of confirmed by patient verbally. FALL SCREENING: Has the patient had 2 falls in the last year or 1 fall with injury or currently using an Ambulatory Assistive Device (Walker, Cane, Wheelchair, Crutches, etc.)? No PATIENT GENDER DATA: Assigned female at . status: : No status: NO. PATIENT RELEVANT IMPLANT DATA REVIEWED: Not Applicable PATIENT PRESENTS WITH AN IMPLANTABLE OR ATTACHED CASINO BANKER: No RADIOLOGY DEPARTMENT: Mammography PERIPHERAL IV DATA: Not applicable SIGNED BY: Benja Truong December 03, 2024 8:15 AM documented in this encounter [facility] 12-03-2024 Note HNO ID: [id number] Author: APRIL CLEMENS Mammo Tech Service: ? Author Type: Operations Logistics Analyst Type: Progress Notes Filed: 12/03/2024 08:15 Note Text: Radiology Service Progress Note PATIENT NAME: Bianca Delarosa DATE OF SERVICE: December 03, 2024 TIME: 8:15 AM PATIENT IDENTITY VERIFICATION COMPLETED USING TWO (2) IDENTIFIERS: Name and Date of confirmed by patient verbally. FALL SCREENING: Has the patient had 2 falls in the last year or 1 fall with injury or currently using an Ambulatory Assistive Device (Walker, Cane, Wheelchair, Crutches, etc.)? No PATIENT GENDER DATA: Assigned female at . status: : No status: NO. PATIENT RELEVANT IMPLANT DATA REVIEWED: Not Applicable PATIENT PRESENTS WITH AN IMPLANTABLE OR ATTACHED CASINO BANKER: No RADIOLOGY DEPARTMENT: Mammography PERIPHERAL IV DATA: Not applicable SIGNED BY: April Clemens [place] [employer] December 03, 2024 8:15 AM [facility] 11-27-2024 Telephone encounter Note Patient notified of results and provider's instructions. Patient verbalizes understanding. Pt was assisted in transfer to schedule MRI. Carmelo Lopez LPN [facility] 11-27-2024 Miscellaneous Notes Patient notified of results and provider's instructions. Patient verbalizes understanding. Pt was assisted in transfer to schedule MRI. Carmelo Lopez LPN Let patient know all the labs test were ok except his testosterone is low and his prolactin is high. I want to get MRI of his brain to eval for a pituitary tumor. Let patient know he will need to stop the metformin the day of the MRI because it has contrast. He will need a blood test two days after the scan to make sure his kidney functions are ok and can be told to restart the metformin. documented in this encounter [facility] 11-26-2024 Telephone encounter Note Let patient know all the labs test were ok except his testosterone is low and his prolactin is high. I want to get MRI of his brain to eval for a pituitary tumor. Let patient know he will need to stop the metformin the day of the MRI because it has contrast. He will need a blood test two days after the scan to make sure his kidney functions are ok and can be told to restart the metformin. [facility] 11-22-2024 History of Present illness Narrative Chief Complaint Patient presents with: Pain: Right nipple pain HPI Bianca Delarosa is a 48 year old male who presents here today for Nipple pain. (Right) Patient has been having right nipple pain. Does feel a nodule under the right nipple. No skin dimpling or nipple discharge. No Fhx of breast cancer. Past medical history, appointments, medications, allergies reviewed. 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 12/07/2022 Substance agreement signed 12/2022, Tox screen done 12/2022 Current use of proton pump inhibitor 09/26/2018 Diabetic eye exam ([facility]) 01/27/2017 Last eye exam: 03/05/2019 Diverticulosis 03/31/2014 Dyslipidemia 03/31/2014 Low HDL, High Trigs Elevated antinuclear antibody (JALEEL) level 03/31/2014 Family history of malignant neoplasm of gastrointestinal tract 03/31/2014 Fatty liver 10/28/2024 US: 10/2024 ISABELLA (generalized anxiety disorder) 06/22/2020 GERD without esophagitis 09/26/2018 Hiatal hernia 03/31/2014 History of COVID-19 09/23/20232021, 09/2023 Hx of colonic polyp 03/31/2014 Needs next colonoscopy 08/2022 Lump 11/16/2019 benign left palm Major depressive disorder with single episode, in partial remission ([facility]) 09/26/2018 Migraine without aura and without status migrainosus, not intractable 09/11/2015 Mood disorder ([facility]) 03/31/2014 Multiple thyroid nodules 02/27/[address] Lazaro 03/2018 Multiple thyroid nodules 02/27/2018 US 03/2020 per radiology no further f/u needed.. All benign Biopsy 03/[address] Lazaro. Benign. Obesity, Class II, BMI 35-39.9 10/21/2022 Obstructive sleep apnea syndrome 01/27/2017 On CPAP Other joint derangement, not elsewhere classified, lower leg 03/25/2013 Primary insomnia 07/28/2020 QT prolongation 04/20/[address] [facility] 04/19/2021: [place] to be benign and related to anti-depressants. No changes needed. TMJ (temporomandibular joint disorder) 03/31/2014 Right side Type 2 diabetes mellitus without complication, without long-term current use of insulin (HCC) 01/19/2017 Well adult exam 12/17/2014 Last done:11/16/2019 Previous Surgical History PAST SURGICAL HISTORY Procedure Laterality Date APPENDECTOMY HX 2003 ARTHROTOMY W/MENISCUS REPAIR KNEE Right 04/2021 COLONOSCOPY 06/2012 Dr. Corrigan +polyp, repeat 5 yrs COLONOSCOPY 08/30/2022 repeat in 5 years COLONOSCOPY FLX DX W/COLLJ SPEC WHEN PFRMD 08/16/2017 Colonoscopy, repeat 5 yrs, Dr. Bliss PAST SURGICAL HISTORY OF 2008 benign cysts: 1 from head and 2 from neck TONSILLECTOMY & ADENOIDECTOMY AGE 11/> 1979 TONSILLECTOMY HX Family History FAMILY HISTORY Problem Relation Age of Onset Colon Cancer Father 52 Coronary Artery Disease Father Coronary Artery Disease Mother 60's Hypertension Mother No Known Problems Brother No Known Problems Brother No Known Problems Brother Coronary Artery Disease Maternal Grandmother 60's Stroke Maternal Grandfather Colon Cancer Paternal Uncle 49 Alzheimer's Disease No Family History Prostate Cancer No Family History Breast Cancer No Family History Hyperlipidemia No Family History Kidney Disease No Family History Seizures No Family History Thyroid No Family History No Ocular Disease No Family History Patient Allergies ALLERGIES Allergen Reactions Topamax [Topiramate] Mental Status Change Unable to remember anything Celexa [Citalopram * Other: See Comments uneffective Effexor [Venlafaxin* Other: See Comments Sexual side affect Reglan [Metoclopram* Unknown Zoloft [Sertraline * Other: See Comments drowsy Current Medications Current Outpatient Medications on File Prior to Visit Medication Sig methylphenidate CD (METADATE CD) 20 mg biphasic capsule Take 1 capsule by mouth once daily for 30 days. Blood-Glucose Sensor (FREESTYLE EVERT 3 SENSOR) agnes USE ONE SENSOR EVERY 14 DAY, IDDM, E11.9 sucralfate (CARAFATE) 1 gram tablet Take one tab with lunch and before bed. Fenofibrate 120 mg tab Take 1 tablet by mouth once daily. esomeprazole (NEXIUM) 40 mg capsule Take 1 capsule by mouth two times a day. atorvastatin (LIPITOR) 80 mg tablet Take 1 tablet by mouth once daily. busPIRone (BUSPAR) 15 mg tablet Take one tab by mouth twice a day. doxepin capsule 10 mg Take 1 capsule by mouth daily at bedtime. DULoxetine (CYMBALTA) 60 mg capsule Take 1 capsule by mouth once daily. DULoxetine (CYMBALTA) 30 mg capsule Take 1 capsule by mouth once daily. OLANZapine (ZYPREXA) 5 mg tablet Take 1 tablet by mouth daily at bedtime. TRESIBA FLEXTOUCH U-100 100 unit/mL (3 mL) injection pen Inject 60 units subcutaneous daily at bedtime. Dispense 60 mL for 90 day supply. HUMALOG KWIKPEN INSULIN 100 unit/mL Inject subcutaneously 20 units breakfast, 20 units lunch, 20 units dinner plus sliding scale up to 82 units daily. Dispense 75 mL for a 90 day supply. Insulin Wykoff, Disposable, (DROPLET PEN NEEDLE) 31 gauge x 16 Use 4 PEN NEEDLES to inject MEDICATION subcutaneously daily metFORMIN (GLUCOPHAGE) 500 mg tablet Take 2 tablets by mouth two times a day with meals. zonisamide (ZONEGRAN) 25 mg capsule Take 1 capsule by mouth once daily. multivitamin tablet Take 1 tablet by mouth once daily. No current facility-administered medications on file prior to visit. Social History Social History Tobacco Use Smoking status: Never Smokeless tobacco: Never Vaping Use Vaping status: Never Used Substance Use Topics Alcohol use: Yes Comment: Rarely Drug use: No Review of Symptoms REVIEW OF SYSTEMS See HPI EXAM: BP 120/90 Pulse 92 Resp 16 Wt 130.6 kg (288 lb) BMI 36.96 kg/m General Appearance: Well appearing, alert, in no acute distress, well-hydrated, well nourished. and Obese. Breast: No skin changes or dimpling, Negative findings: normal in size and symmetry, normal contour with no evidence of flattening or dimpling, skin normal, nipples everted without rashes or discharge, no masses on the left., and Positive findings: nodule smooth, soft, tender, and located Right side under the areola.. Lymph Nodes: No cervical lymphadenopathy, No supraclavicular lymphadenopathy, and No axillary lymphadenopathy.. Health Maintenance List Diabetic Foot Exam due on 07/07/2024 Urine Albumin:Creatinine Ratio due on 08/11/2024 HbA1C due on 01/12/2025 Dilated Retinal Exam due on 02/22/2025 LDL Cholesterol due on 10/14/2025 Annual PCP Team Chronic Disease Visit due on 10/14/2025 Colorectal Cancer Screening due on 08/30/2027 Pneumococcal Vaccine(3 of 3 - PCV20 or PCV21) due on 12/06/2028 DTaP,Tdap,Td Vaccine(3 - Td or Tdap) due on 04/13/2031 Hepatitis B Vaccine Completed Influenza Vaccine Completed Covid-19 Vaccine Completed Spirometry Discontinued Hepatitis C Screening Discontinued HIV Screening Discontinued Data reviewed A/P ASSESSMENT/PLAN: 1. Subareolar mass of right breast - ICD9: 611.72, ICD10: N63.41 Check - LUTEINIZING HORMONE - FOLLICLE STIMULATING HORMONE - TESTOSTERONE, TOTAL BY IMMUNOASSAY (ADULT MALES, OR INDIVIDUALS ON TESTOSTERONE THERAPY) - T4 FREE/FREE THYROXINE - THYROID STIMULATING HORMONE - PROLACTIN - ESTRADIOL-17B BLD - HCG QUANTITATIVE - FIGUEROA DIAGNOSTIC BILATERAL - US BREAST LTD RIGHT F/u as needed. Humberto Jackson MD documented in this encounter [facility] 11-22-2024 Note HNO ID: [id number] Author: HUMBERTO JACKSON MD Service: ? Author Type: Physician Type: Progress Notes Filed: 11/22/2024 11:01 Note Text: Chief Complaint Patient presents with: Pain: Right nipple pain HPI Bianca Delarosa is a 48 year old male who presents here today for Nipple pain. (Right) Patient has been having right nipple pain. Does feel a nodule under the right nipple. No skin dimpling or nipple discharge. No Fhx of breast cancer. Past medical history, appointments, medications, allergies reviewed. 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 12/07/2022 Substance agreement signed 12/2022, Tox screen done 12/2022 Current use of proton pump inhibitor 09/26/2018 Diabetic eye exam (HCC) 01/27/2017 Last eye exam: 03/05/2019 Diverticulosis 03/31/2014 Dyslipidemia 03/31/2014 Low HDL, High Trigs Elevated antinuclear antibody (JALEEL) level 03/31/2014 Family history of malignant neoplasm of gastrointestinal tract 03/31/2014 Fatty liver 10/28/2024 US: 10/2024 ISABELLA (generalized anxiety disorder) 06/22/2020 GERD without esophagitis 09/26/2018 Hiatal hernia 03/31/2014 History of COVID-19 09/23/20232021, 09/2023 Hx of colonic polyp 03/31/2014 Needs next colonoscopy 08/2022 Lump 11/16/2019 benign left palm Major depressive disorder with single episode, 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 Lazaro 03/2018 Multiple thyroid nodules 02/27/2018 US 03/2020 per radiology no further f/u needed.. All benign Biopsy 03/2018 Dr. Lazaro. Benign. Obesity, Class II, BMI 35-39.9 10/21/2022 Obstructive sleep apnea syndrome 01/27/2017 On CPAP Other joint derangement, not elsewhere classified, lower leg 03/25/2013 Primary insomnia 07/28/2020 QT prolongation 04/20/2021 Seen [facility] 04/19/2021: Retsof to be benign and related to anti-depressants. No changes needed. TMJ (temporomandibular joint disorder) 03/31/2014 Right side Type 2 diabetes mellitus without complication, without long-term current use of insulin ([facility]) 01/19/2017 Well adult exam 12/17/2014 Last done:11/16/2019 Previous Surgical History PAST SURGICAL HISTORY Procedure Laterality Date APPENDECTOMY HX 2004 ARTHROTOMY W/MENISCUS REPAIR KNEE Right 04/2021 COLONOSCOPY 06/2012 Dr. Corrigan +polyp, repeat 5 yrs COLONOSCOPY 08/30/2022 repeat in 5 years COLONOSCOPY FLX DX W/COLLJ SPEC WHEN PFRMD 08/16/2017 Colonoscopy, repeat 5 yrs, Dr. Bliss PAST SURGICAL HISTORY OF 2009 benign cysts: 1 from head and 2 from neck TONSILLECTOMY AND ADENOIDECTOMY AGE 11/> 1979 TONSILLECTOMY HX Family History FAMILY HISTORY Problem Relation Age of Onset Colon Cancer Father 52 Coronary Artery Disease Father Coronary Artery Disease Mother 60's Hypertension Mother No Known Problems Brother No Known Problems Brother No Known Problems Brother Coronary Artery Disease Maternal Grandmother 60's Stroke Maternal Grandfather Colon Cancer Paternal Uncle 49 Alzheimer's Disease No Family History Prostate Cancer No Family History Breast Cancer No Family History Hyperlipidemia No Family History Kidney Disease No Family History Seizures No Family History Thyroid No Family History No Ocular Disease No Family History Patient Allergies ALLERGIES Allergen Reactions Topamax [Topiramate] Mental Status Change Unable to remember anything Celexa [Citalopram * Other: See Comments uneffective Effexor [Venlafaxin* Other: See Comments Sexual side affect Reglan [Metoclopram* Unknown Zoloft [Sertraline * Other: See Comments drowsy Current Medications Current Outpatient Medications on File Prior to Visit Medication Sig methylphenidate CD (METADATE CD) 20 mg biphasic capsule Take 1 capsule by mouth once daily for 30 days. Blood-Glucose Sensor (FREESTYLE EVERT 3 SENSOR) agnes USE ONE SENSOR EVERY 14 DAY, IDDM, E11.9 sucralfate (CARAFATE) 1 gram tablet Take one tab with lunch and before bed. Fenofibrate 120 mg tab Take 1 tablet by mouth once daily. esomeprazole (NEXIUM) 40 mg capsule Take 1 capsule by mouth two times a day. atorvastatin (LIPITOR) 80 mg tablet Take 1 tablet by mouth once daily. busPIRone (BUSPAR) 15 mg tablet Take one tab by mouth twice a day. doxepin capsule 10 mg Take 1 capsule by mouth daily at bedtime. DULoxetine (CYMBALTA) 60 mg capsule Take 1 capsule by mouth once daily. DULoxetine (CYMBALTA) 30 mg capsule Take 1 capsule by mouth once daily. OLANZapine (ZYPREXA) 5 mg tablet Take 1 tablet by mouth daily at bedtime. TRESIBA FLEXTOUCH U-100 100 unit/mL (3 mL) (more content not included)... [facility] 11-18-2024 Telephone encounter Note The following approved medication requests have been transmitted electronically. Requested Prescriptions Signed Prescriptions Disp Refills methylphenidate CD (METADATE CD) 20 mg biphasic capsule 30 capsule 0 Sig: Take 1 capsule by mouth once daily for 30 days. Authorizing Provider: HUMBERTO JACKSON MD PDMP website checked and validated. All prescriptions have been APPROPRIATELY filled. No suspicious activity was identified. 11/18/2024 by Humberto Jackson MD [facility] 11-18-2024 Miscellaneous Notes The following approved medication requests have been transmitted electronically. Requested Prescriptions Signed Prescriptions Disp Refills methylphenidate CD (METADATE CD) 20 mg biphasic capsule 30 capsule 0 Sig: Take 1 capsule by mouth once daily for 30 days. Authorizing Provider: HUMBERTO JACKSON MD PDMP website checked and validated. All prescriptions have been APPROPRIATELY filled. No suspicious activity was identified. 11/18/2024 by Humberto Jackson MD Prescription Refill Information The patient has been identified by name and date of : Yes Caregiver verified no other encounters exist for this prescription request: Yes Caregiver confirmed with patient/requestor that no other refills are due, in the near future, with this provider at this time: No The last office visit in the department: 10/14/24 Does the patient have a future office visit with this provider/department: Yes Requested Prescriptions Pending Prescriptions Disp Refills methylphenidate CD (METADATE CD) 20 mg biphasic capsule 30 capsule 0 Sig: Take 1 capsule by mouth once daily for 30 days. Tia Ibarra MA November 18, 2024 6:08 PM documented in this encounter [facility] 11-18-2024 Telephone encounter Note Prescription Refill Information The patient has been identified by name and date of : Yes Caregiver verified no other encounters exist for this prescription request: Yes Caregiver confirmed with patient/requestor that no other refills are due, in the near future, with this provider at this time: No The last office visit in the department: 10/14/24 Does the patient have a future office visit with this provider/department: Yes Requested Prescriptions Pending Prescriptions Disp Refills methylphenidate CD (METADATE CD) 20 mg biphasic capsule 30 capsule 0 Sig: Take 1 capsule by mouth once daily for 30 days. Tia Ibarra MA November 18, 2024 6:[address] [facility] 11-05-2024 Telephone encounter Note Prescription Refill Information The patient has been identified by name and date of : Yes Caregiver verified no other encounters exist for this prescription request: Yes Caregiver confirmed with patient/requestor that no other refills are due, in the near future, with this provider at this time: Yes The last office visit in the department: 01/17/2024 Does the patient have a future office visit with this provider/department: No. Overdue for 3 month f/u Requested Prescriptions Pending Prescriptions Disp Refills Blood-Glucose Sensor (FREESTYLE EVERT 3 SENSOR) agnes [Pharmacy Med Name: FREESTYLE EVERT 3 SENSOR] 2 Each 3 Sig: USE ONE SENSOR EVERY 14 DAY, IDDM, E11.9 Regian Parrish MA November 05, 2024 7:[address] [facility] 11-05-2024 Miscellaneous Notes Prescription Refill Information The patient has been identified by name and date of : Yes Caregiver verified no other encounters exist for this prescription request: Yes Caregiver confirmed with patient/requestor that no other refills are due, in the near future, with this provider at this time: Yes The last office visit in the department: 01/17/2024 Does the patient have a future office visit with this provider/department: No. Overdue for 3 month f/u Requested Prescriptions Pending Prescriptions Disp Refills Blood-Glucose Sensor (FREESTYLE EVERT 3 SENSOR) agnes [Pharmacy Med Name: FREESTYLE EVERT 3 SENSOR] 2 Each 3 Sig: USE ONE SENSOR EVERY 14 DAY, IDDM, E11.9 Regina Parrish MA November 05, 2024 7:56 AM documented in this encounter [facility] 10-28-2024 Telephone encounter Note Pt called and is notified of providers results and instructions. Pt voices understanding. Emma Martínez RN [facility] 10-28-2024 Miscellaneous Notes Pt called and is notified of providers results and instructions. Pt voices understanding. Emma Martínez RN Let patient know the US was ok except it showed fatty lover. This can progress over time to develop into liver scaring and this is cirrhosis which can lead to and increased risk of liver cancer. It is imperative to work on weight loss and decreased fat in the diet. Once the labs are done I can determine if any further w/u needed. Patient notified and voiced understanding. Please assist patient to schedule US. Tam Daugherty MA Let patient know I have placed some additional labs to work up the elevated alk phos and want to get a US of his gal bladder to see if he has stones. Order placed. Patient informed and verbalized understanding. He states he was fasting for these labs. Dannielle Herr MA Let patient know the test for a bacteria in his stomach was negative. His pancreatic enzymes were normal. His liver functions were ok but his Alk Phos was elevated. See if he had been fasting and if not want to recheck lab when he has been fasting. His lipid panel showed his Trigs are still elevated but improved at 377 ((goal<150 and were 1,046), HDL low at 22 (goal>40) and LDL very good at 20. I'm going to increase his fenofibrate to 120 mg once a day. Script sent. His A1c is still high at 11.7. I don't see that he has any f/u appt with Endo and needs to do this. Looks like he canceled his appt in 04/2024 and never rescheduled. documented in this encounter [facility] 10-28-2024 Telephone encounter Note Let patient know the US was ok except it showed fatty lover. This can progress over time to develop into liver scaring and this is cirrhosis which can lead to and increased risk of liver cancer. It is imperative to work on weight loss and decreased fat in the diet. Once the labs are done I can determine if any further w/u needed. [facility] 10-25-2024 History of Present illness Narrative Radiology Service Progress Note PATIENT NAME: Bianca Delarosa DATE OF SERVICE: October 25, 2024 TIME: 10:05 AM PATIENT IDENTITY VERIFICATION COMPLETED USING TWO (2) IDENTIFIERS: Name and Date of confirmed by patient verbally. FALL SCREENING: Has the patient had 2 falls in the last year or 1 fall with injury or currently using an Ambulatory Assistive Device (Walker, Cane, Wheelchair, Crutches, etc.)? No PATIENT GENDER DATA: Assigned male at PATIENT RELEVANT IMPLANT DATA REVIEWED: Not Applicable PATIENT PRESENTS WITH AN IMPLANTABLE OR ATTACHED CASINO BANKER: No RADIOLOGY DEPARTMENT: Ultrasound PERIPHERAL IV DATA: Not applicable SIGNED BY: Berkley García RDMS RVT October 25, 2024 10:05 AM documented in this encounter [facility] 10-25-2024 Note HNO ID: [id number] Author: BERKLEY GARCÍA RDMS Service: ? Author Type: Crime Laboratory Analyst Type: Progress Notes Filed: 10/25/2024 10:05 Note Text: Radiology Service Progress Note PATIENT NAME: Bianca Delarosa DATE OF SERVICE: October 25, 2024 TIME: 10:05 AM PATIENT IDENTITY VERIFICATION COMPLETED USING TWO (2) IDENTIFIERS: Name and Date of confirmed by patient verbally. FALL SCREENING: Has the patient had 2 falls in the last year or 1 fall with injury or currently using an Ambulatory Assistive Device (Walker, Cane, Wheelchair, Crutches, etc.)? No PATIENT GENDER DATA: Assigned male at PATIENT RELEVANT IMPLANT DATA REVIEWED: Not Applicable PATIENT PRESENTS WITH AN IMPLANTABLE OR ATTACHED CASINO BANKER: No RADIOLOGY DEPARTMENT: Ultrasound PERIPHERAL IV DATA: Not applicable SIGNED BY: Berkley García RDMS RVSun October 25, 2024 10:05 AM [facility] 10-23-2024 Telephone encounter Note The following approved medication requests have been transmitted electronically. Requested Prescriptions Signed Prescriptions Disp Refills sucralfate (CARAFATE) 1 gram tablet 60 tablet 5 Sig: Take one tab with lunch and before bed. Humberto Jackson MD [facility] 10-23-2024 Miscellaneous Notes The following approved medication requests have been transmitted electronically. Requested Prescriptions Signed Prescriptions Disp Refills sucralfate (CARAFATE) 1 gram tablet 60 tablet 5 Sig: Take one tab with lunch and before bed. Humberto Jackson MD documented in this encounter [facility] 10-18-2024 Telephone encounter Note Patient notified and voiced understanding. Please assist patient to schedule US. Tam Daugherty MA [facility] 10-17-2024 Telephone encounter Note Let patient know I have placed some additional labs to work up the elevated alk phos and want to get a US of his gal bladder to see if he has stones. Order placed. [facility] 10-17-2024 Telephone encounter Note Patient informed and verbalized understanding. He states he was fasting for these labs. Dannielle Herr MA [facility] 10-16-2024 Telephone encounter Note Let patient know the test for a bacteria in his stomach was negative. His pancreatic enzymes were normal. His liver functions were ok but his Alk Phos was elevated. See if he had been fasting and if not want to recheck lab when he has been fasting. His lipid panel showed his Trigs are still elevated but improved at 377 ((goal<150 and were 1,046), HDL low at 22 (goal>40) and LDL very good at 20. I'm going to increase his fenofibrate to 120 mg once a day. Script sent. His A1c is still high at 11.7. I don't see that he has any f/u appt with Endo and needs to do this. Looks like he canceled his appt in 04/2024 and never rescheduled. [facility] 10-14-2024 Note HNO ID: [id number] Author: HUMBERTO JACKSON MD Service: ? Author Type: Physician Type: Progress Notes Filed: 10/14/2024 21:24 Note Text: Chief Complaint Patient presents with: GERD HPI Bianca Delarosa is a 48 year old male who presents here today for increased GERD.. Patient has been noting increased epigastric burning and up into the chest. Has been waking up at night with GERD. He is taking the Nexium 40 mg a day and has been trying to drink more water.. Belly is churning a lot but no nausea or vomiting. Waking up with a sour taste in the morning. Denied new life style changes that would increase acid reflux. No RUQ pain after eating. Past medical history, appointments, medications, allergies reviewed. 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 12/07/2022 Substance agreement signed 12/2022, Tox screen done 12/2022 Current use of proton pump inhibitor 09/26/2018 Diabetic eye exam (HCC) 01/27/2017 Last eye exam: 03/05/2019 Diverticulosis 03/31/2014 Dyslipidemia 03/31/2014 Low HDL, High Trigs Elevated antinuclear antibody (JALEEL) level 03/31/2014 Family history of malignant neoplasm of gastrointestinal tract 03/31/2014 ISABELLA (generalized anxiety disorder) 06/22/2020 GERD without esophagitis 09/26/2018 Hiatal hernia 03/31/2014 History of COVID-19 09/23/20232021, 09/2023 Hx of colonic polyp 03/31/2014 Needs next colonoscopy 08/2022 Lump 11/16/2019 benign left palm Major depressive disorder with single episode, in partial remission ([facility]) 09/26/2018 Migraine without aura and without status migrainosus, not intractable 09/11/2015 Mood disorder ([facility]) 03/31/2014 Multiple thyroid nodules 02/27/[address] Lazaro 03/2018 Multiple thyroid nodules 02/27/2018 US 03/2020 per radiology no further f/u needed.. All benign Biopsy 03/[address] Lazaro. Benign. Obesity, Class II, BMI 35-39.9 10/21/2022 Obstructive sleep apnea syndrome 01/27/2017 On CPAP Other joint derangement, not elsewhere classified, lower leg 03/25/2013 Primary insomnia 07/28/2020 QT prolongation 04/20/[address] [facility] 04/19/2021: Retsof to be benign and related to anti-depressants. No changes needed. TMJ (temporomandibular joint disorder) 03/31/2014 Right side Type 2 diabetes mellitus without complication, without long-term current use of insulin ([facility]) 01/19/2017 Well adult exam 12/17/2014 Last done:11/16/2019 Previous Surgical History PAST SURGICAL HISTORY Procedure Laterality Date APPENDECTOMY HX 2004 ARTHROTOMY W/MENISCUS REPAIR KNEE Right 04/2021 COLONOSCOPY 06/2012 Dr. Corrigan +polyp, repeat 5 yrs COLONOSCOPY 08/30/2022 repeat in 5 years COLONOSCOPY FLX DX W/COLLJ SPEC WHEN PFRMD 08/16/2017 Colonoscopy, repeat 5 yrs, Dr. Bliss PAST SURGICAL HISTORY OF 2009 benign cysts: 1 from head and 2 from neck TONSILLECTOMY AND ADENOIDECTOMY AGE 11/> 1979 TONSILLECTOMY HX Family History FAMILY HISTORY Problem Relation Age of Onset Colon Cancer Father 52 Coronary Artery Disease Father Coronary Artery Disease Mother 60's Hypertension Mother No Known Problems Brother No Known Problems Brother No Known Problems Brother Coronary Artery Disease Maternal Grandmother 60's Stroke Maternal Grandfather Colon Cancer Paternal Uncle 49 Alzheimer's Disease No Family History Prostate Cancer No Family History Breast Cancer No Family History Hyperlipidemia No Family History Kidney Disease No Family History Seizures No Family History Thyroid No Family History No Ocular Disease No Family History Patient Allergies ALLERGIES Allergen Reactions Topamax [Topiramate] Mental Status Change Unable to remember anything Celexa [Citalopram * Other: See Comments uneffective Effexor [Venlafaxin* Other: See Comments Sexual side affect Reglan [Metoclopram* Unknown Zoloft [Sertraline * Other: See Comments drowsy Current Medications Current Outpatient Medications on File Prior to Visit Medication Sig atorvastatin (LIPITOR) 80 mg tablet Take 1 tablet by mouth once daily. busPIRone (BUSPAR) 15 mg tablet Take one tab by mouth twice a day. doxepin capsule 10 mg Take 1 capsule by mouth daily at bedtime. methylphenidate CD (METADATE CD) 20 mg biphasic capsule Take 1 capsule by mouth once daily for 30 days. DULoxetine (CYMBALTA) 60 mg capsule Take 1 capsule by mouth once daily. esomeprazole (NEXIUM) 40 mg capsule Take 1 capsule by mouth once daily. Fenofibrate (LOFIBRA) 54 mg tablet Take 1 tablet by mouth once daily. DULoxetine (CYMBALTA) 30 mg capsule Take 1 capsule by mouth once daily. OLANZapine (ZYPREXA) 5 mg tablet Take 1 tablet by mouth daily at bedtime. TRESIBA FLEXTOUCH U-100 100 unit/mL (3 (more content not included)... [facility] 10-11-2024 Telephone encounter Note Come in and see one of the providers [facility] Work Phone: 10-11-2024 Miscellaneous Notes Come in and see one of the providers Pt recently seen in office on 09/17/24 for ADD medication. No GERD issues discussed at visit. Please advise if pt needs an appt to discuss or okay to adjust medication. Rosie Marques MA documented in this encounter [facility] 10-10-2024 Telephone encounter Note Pt recently seen in office on 09/17/24 for ADD medication. No GERD issues discussed at visit. Please advise if pt needs an appt to discuss or okay to adjust medication. Rosie Marques MA [facility] 09-17-2024 Note HNO ID: [id number] Author: HUMBERTO JACKSON MD Service: ? Author Type: Physician Type: Progress Notes Filed: 09/17/2024 13:37 Note Text: Chief Complaint Patient presents with: Follow Up HPI Bianca Delarosa is a 48 year old male who presents here today for 4 week follow up Depression/Anxiety. Patient with hx of DM 2, hyperlipidemia, GERD, mood disorder, thyroid nodules, allergies, depression, migraines, insomnia, MIKE as well as those reviewed and addressed below and in ROS Last visit we did increase his methylphenidate CD 20 mg and we also increased his Cymbalta for a total of 90 mg daily. Since these changes he is feeling much better in regards to his mood and concentration. His has told him he is doing well. No notable side affects and has lost some weight. Office visit - 08/19/2024 Depression/ADHD patient has a Hx of depression and anxiety and is currently taking buspar 15 mg BID, cymbalta 60 mg a day and Olanzapine 5 mg a day. Feels like his anxiety is ok. He just feels that at any given moment he could burst out crying. His feels his concentration is not as good as it had been. He is currently on methylphenidate CD 10 mg a day. He does not feel that the lack of focus may be contributing to the depression symptoms. He is also more easily agitated. No suicidal or homicidal thoughts. Patient says work is going ok. Personal life is doing ok and his daughter who is 13 is doing well. Past medical history, appointments, medications, allergies reviewed. 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 12/07/2022 Substance agreement signed 12/2022, Tox screen done 12/2022 Current use of proton pump inhibitor 09/26/2018 Diabetic eye exam ([facility]) 01/27/2017 Last eye exam: 03/05/2019 Diverticulosis 03/31/2014 Dyslipidemia 03/31/2014 Low HDL, High Trigs Elevated antinuclear antibody (JALEEL) level 03/31/2014 Family history of malignant neoplasm of gastrointestinal tract 03/31/2014 ISABELLA (generalized anxiety disorder) 06/22/2020 GERD without esophagitis 09/26/2018 Hiatal hernia 03/31/2014 History of COVID-19 09/23/20232021, 09/2023 Hx of colonic polyp 03/31/2014 Needs next colonoscopy 08/2022 Lump 11/16/2019 benign left palm Major depressive disorder with single episode, in partial remission ([facility]) 09/26/2018 Migraine without aura and without status migrainosus, not intractable 09/11/2015 Mood disorder ([facility]) 03/31/2014 Multiple thyroid nodules 02/27/[address] Lazaro 03/2018 Multiple thyroid nodules 02/27/2018 US 03/2020 per radiology no further f/u needed.. All benign Biopsy 03/[address] Lazaro. Benign. Obesity, Class II, BMI 35-39.9 10/21/2022 Obstructive sleep apnea syndrome 01/27/2017 On CPAP Other joint derangement, not elsewhere classified, lower leg 03/25/2013 Primary insomnia 07/28/2020 QT prolongation 04/20/[address] [facility] 04/19/2021: Retsof to be benign and related to anti-depressants. No changes needed. TMJ (temporomandibular joint disorder) 03/31/2014 Right side Type 2 diabetes mellitus without complication, without long-term current use of insulin (HCC) 01/19/2017 Well adult exam 12/17/2014 Last done:11/16/2019 Previous Surgical History PAST SURGICAL HISTORY Procedure Laterality Date APPENDECTOMY HX 2003 ARTHROTOMY W/MENISCUS REPAIR KNEE Right 04/2021 COLONOSCOPY 06/2012 Dr. Corrigan +polyp, repeat 5 yrs COLONOSCOPY 08/30/2022 repeat in 5 years COLONOSCOPY FLX DX W/COLLJ SPEC WHEN PFRMD 08/16/2017 Colonoscopy, repeat 5 yrs, Dr. Bliss PAST SURGICAL HISTORY OF 2008 benign cysts: 1 from head and 2 from neck TONSILLECTOMY AND ADENOIDECTOMY AGE 11/> 1979 TONSILLECTOMY HX Family History FAMILY HISTORY Problem Relation Age of Onset Colon Cancer Father 52 Coronary Artery Disease Father Coronary Artery Disease Mother 60's Hypertension Mother No Known Problems Brother No Known Problems Brother No Known Problems Brother Coronary Artery Disease Maternal Grandmother 60's Stroke Maternal Grandfather Colon Cancer Paternal Uncle 49 Alzheimer's Disease No Family History Prostate Cancer No Family History Breast Cancer No Family History Hyperlipidemia No Family History Kidney Disease No Family History Seizures No Family History Thyroid No Family History No Ocular Disease No Family History Patient Allergies ALLERGIES Allergen Reactions Topamax [Topiramate] Mental Status Change Unable to remember anything Celexa [Citalopram * Other: See Comments uneffective Effexor [Venlafaxin* Other: See Comments Sexual side affect Reglan [Metoclopram* Unknown Zoloft [Sertraline * Other: See Comments drowsy Current Medications C (more content not included)... [facility] 09-17-2024 History of Present illness Narrative Chief Complaint Patient presents with: Follow Up HPI Bianca Saenz Emmanueljaimee is a 48 year old male who presents here today for 4 week follow up Depression/Anxiety. Patient with hx of DM 2, hyperlipidemia, GERD, mood disorder, thyroid nodules, allergies, depression, migraines, insomnia, MIKE as well as those reviewed and addressed below and in ROS Last visit we did increase his methylphenidate CD 20 mg and we also increased his Cymbalta for a total of 90 mg daily. Since these changes he is feeling much better in regards to his mood and concentration. His has told him he is doing well. No notable side affects and has lost some weight. Office visit - 08/19/2024 Depression/ADHD patient has a Hx of depression and anxiety and is currently taking buspar 15 mg BID, cymbalta 60 mg a day and Olanzapine 5 mg a day. Feels like his anxiety is ok. He just feels that at any given moment he could burst out crying. His feels his concentration is not as good as it had been. He is currently on methylphenidate CD 10 mg a day. He does not feel that the lack of focus may be contributing to the depression symptoms. He is also more easily agitated. No suicidal or homicidal thoughts. Patient says work is going ok. Personal life is doing ok and his daughter who is 13 is doing well. Past medical history, appointments, medications, allergies reviewed. 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 12/07/2022 Substance agreement signed 12/2022, Tox screen done 12/2022 Current use of proton pump inhibitor 09/26/2018 Diabetic eye exam ([facility]) 01/27/2017 Last eye exam: 03/05/2019 Diverticulosis 03/31/2014 Dyslipidemia 03/31/2014 Low HDL, High Trigs Elevated antinuclear antibody (JALEEL) level 03/31/2014 Family history of malignant neoplasm of gastrointestinal tract 03/31/2014 ISABELLA (generalized anxiety disorder) 06/22/2020 GERD without esophagitis 09/26/2018 Hiatal hernia 03/31/2014 History of COVID-19 09/23/20232021, 09/2023 Hx of colonic polyp 03/31/2014 Needs next colonoscopy 08/2022 Lump 11/16/2019 benign left palm Major depressive disorder with single episode, in partial remission ([facility]) 09/26/2018 Migraine without aura and without status migrainosus, not intractable 09/11/2015 Mood disorder ([facility]) 03/31/2014 Multiple thyroid nodules 02/27/[address] Lazaro 03/2018 Multiple thyroid nodules 02/27/2018 US 03/2020 per radiology no further f/u needed.. All benign Biopsy 03/2018 Dr. Lazaro. Benign. Obesity, Class II, BMI 35-39.9 10/21/2022 Obstructive sleep apnea syndrome 01/27/2017 On CPAP Other joint derangement, not elsewhere classified, lower leg 03/25/2013 Primary insomnia 07/28/2020 QT prolongation 04/20/2021 Seen [facility] 04/19/2021: [place] to be benign and related to anti-depressants. No changes needed. TMJ (temporomandibular joint disorder) 03/31/2014 Right side Type 2 diabetes mellitus without complication, without long-term current use of insulin (HCC) 01/19/2017 Well adult exam 12/17/2014 Last done:11/16/2019 Previous Surgical History PAST SURGICAL HISTORY Procedure Laterality Date APPENDECTOMY HX 2003 ARTHROTOMY W/MENISCUS REPAIR KNEE Right 04/2021 COLONOSCOPY 06/2012 Dr. Corrigan +polyp, repeat 5 yrs COLONOSCOPY 08/30/2022 repeat in 5 years COLONOSCOPY FLX DX W/COLLJ SPEC WHEN PFRMD 08/16/2017 Colonoscopy, repeat 5 yrs, Dr. Bliss PAST SURGICAL HISTORY OF 2008 benign cysts: 1 from head and 2 from neck TONSILLECTOMY & ADENOIDECTOMY AGE 11/> 1979 TONSILLECTOMY HX Family History FAMILY HISTORY Problem Relation Age of Onset Colon Cancer Father 52 Coronary Artery Disease Father Coronary Artery Disease Mother 60's Hypertension Mother No Known Problems Brother No Known Problems Brother No Known Problems Brother Coronary Artery Disease Maternal Grandmother 60's Stroke Maternal Grandfather Colon Cancer Paternal Uncle 49 Alzheimer's Disease No Family History Prostate Cancer No Family History Breast Cancer No Family History Hyperlipidemia No Family History Kidney Disease No Family History Seizures No Family History Thyroid No Family History No Ocular Disease No Family History Patient Allergies ALLERGIES Allergen Reactions Topamax [Topiramate] Mental Status Change Unable to remember anything Celexa [Citalopram * Other: See Comments uneffective Effexor [Venlafaxin* Other: See Comments Sexual side affect Reglan [Metoclopram* Unknown Zoloft [Sertraline * Other: See Comments drowsy Current Medications Current Outpatient Medications on File Prior to Visit Medication Sig DULoxetine (CYMBALTA) 60 mg capsule Take 1 capsule by mouth once daily. esomeprazole (NEXIUM) 40 mg capsule Take 1 capsule by mouth once daily. Fenofibrate (LOFIBRA) 54 mg tablet Take 1 tablet by mouth once daily. methylphenidate CD (METADATE CD) 20 mg biphasic capsule Take 1 capsule by mouth once daily for 30 days. DULoxetine (CYMBALTA) 30 mg capsule Take 1 capsule by mouth once daily. OLANZapine (ZYPREXA) 5 mg tablet Take 1 tablet by mouth daily at bedtime. doxepin capsule 10 mg Take 1 capsule by mouth daily at bedtime. atorvastatin (LIPITOR) 80 mg tablet Take 1 tablet by mouth once daily. TRESIBA FLEXTOUCH U-100 100 unit/mL (3 mL) injection pen Inject 60 units subcutaneous daily at bedtime. Dispense 60 mL for 90 day supply. HUMALOG KWIKPEN INSULIN 100 unit/mL Inject subcutaneously 20 units breakfast, 20 units lunch, 20 units dinner plus sliding scale up to 82 units daily. Dispense 75 mL for a 90 day supply. busPIRone (BUSPAR) 15 mg tablet Take one tab by mouth twice a day. Insulin Wykoff, Disposable, (DROPLET PEN NEEDLE) 31 gauge x 3/16 Use 4 PEN NEEDLES to inject MEDICATION subcutaneously daily metFORMIN (GLUCOPHAGE) 500 mg tablet Take 2 tablets by mouth two times a day with meals. Blood-Glucose Sensor (FREESTYLE EVERT 3 SENSOR) agnes Use one sensor every 14 day, IDDM, E11.9 zonisamide (ZONEGRAN) 25 mg capsule Take 1 capsule by mouth once daily. multivitamin tablet Take 1 tablet by mouth once daily. No current facility-administered medications on file prior to visit. Social History Social History Tobacco Use Smoking status: Never Smokeless tobacco: Never Vaping Use Vaping status: Never Used Substance Use Topics Alcohol use: Yes Comment: Rarely Drug use: No Review of Symptoms REVIEW OF SYSTEMS See HPI EXAM: BP 130/90 Pulse 90 Resp 16 Wt 131.1 kg (289 lb) BMI 37.09 kg/m Last 5 Encounter Wt Readings: Date: Wt: 09/17/2024 131.1 kg (289 lb) 08/19/2024 132.9 kg (293 lb) 06/06/2024 135.6 kg (299 lb) 05/21/2024 134.7 kg (297 lb) 01/31/2024 136.7 kg (301 lb 5.9 oz) General Appearance: Well appearing, alert, in no acute distress, well-hydrated, well nourished... Lungs: Lungs clear to auscultation. No wheezing, rhonchi, rales.. Heart: RRR without murmur, gallop, or rubs. No ectopy. Extremities: No deformities, edema, skin discoloration, capillary refill. . Health Maintenance List Diabetic Foot Exam due on 07/07/2024 Urine Albumin:Creatinine Ratio due on 08/11/2024 HbA1C due on 08/21/2024 Dilated Retinal Exam due on 02/22/2025 LDL Cholesterol due on 05/21/2025 Annual PCP Team Chronic Disease Visit due on 08/19/2025 Colorectal Cancer Screening due on 08/30/2027 DTaP,Tdap,Td Vaccine(3 - Td or Tdap) due on 04/13/2031 Hepatitis B Vaccine Completed Influenza Vaccine Completed Covid-19 Vaccine Completed Pneumococcal Vaccine Completed Spirometry Discontinued Hepatitis C Screening Discontinued HIV Screening Discontinued Data reviewed A/P ASSESSMENT/PLAN: 1. Attention 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 - ICD9: 314.00, ICD10: F98.8 (primary diagnosis) Cont - METHYLPHENIDATE CD 20 MG BIPHASIC 30-70 CAPSULE,EXTENDED RELEASE once a day 2. Mood disorder (HCC) - ICD9: 296.90, ICD10: F39 - much improved with Cymbalta at 90 mg a day. 3. Major depressive disorder with single episode, in partial remission (HCC) - ICD9: 296.25, ICD10: F32.4 - as per #2 4. Agitation - ICD9: 307.9, ICD10: R45.1 - as per #2 5. Dyslipidemia - ICD9: 272.4, ICD10: E78.5 Cont - ATORVASTATIN 80 MG TABLET Requested Prescriptions Signed Prescriptions Disp Refills atorvastatin (LIPITOR) 80 mg tablet 90 tablet 1 Sig: Take 1 tablet by mouth once daily. busPIRone (BUSPAR) 15 mg tablet 180 tablet 1 Sig: Take one tab by mouth twice a day. doxepin capsule 10 mg 90 capsule 1 Sig: Take 1 capsule by mouth daily at bedtime. methylphenidate CD (METADATE CD) 20 mg biphasic capsule 30 capsule 0 Sig: Take 1 capsule by mouth once daily for 30 days. F/u next routine. Humberto Jackson MD documented in this encounter [facility] 08-26-2024 Note HNO ID: [id number] Author: STORM PATEL PT Service: ? Author Type: Physical Therapist Type: Progress Notes Filed: 08/26/2024 11:15 Note Text: Episode Visit Count: 5 Therapist That Will Accept/Oversee The Plan Of Care: Storm Patel PT Start of Care Date: 06/12/24 Onset Date: 05/12/24 Plan of Care Certification Date: 09/25/17 Patient Identified by Name and Date of : Yes REHABILITATION AND SPORTS THERAPY PHYSICAL THERAPY DISCONTINUANCE OF CARE PLAN OF CARE UPDATE: Assessment: Bianca Delarosa is discontinued from Physical Therapy services due to goal achievement and maximal benefit. and Patient/Clinician mutual decision to discontinue current plan of care.. Patient was seen for 5 visits from Start of Care Date: 06/12/24 to 08/26/2024 and treatment included: Therapeutic exercise, Self-intermediate management, Patient/Family/Caregiver Education, and Body mechanics training. Updated: 07/22/24 and 08/26/24 Goals for Episode of Care: established 06/12/24 [place] in home exercise program. - MET Patient will decrease pain to 0/10 at rest and with functional activities to allow patient to improve reaching and lifting with R UE. - Partially MET Patient will increase active ROM of R shoulder to WFL, symmetrical and pain-free to allow pt to to improve performance of ADLs. - Partially MET Perform all reaching and lifting with R UE without pain. - Partially MET Increased strength of R shoulder to WFL for return to prior functional Level - Partially MET Improve postural awareness. - Partially MET Patient Goals: feel better - MET SUBJECTIVE: Pt reports that overall he is better than when we started. Specifially he feels that his ROM is better and lifting is better. He reports that his only limitation is with reaching behind. He even reports lifting totes and furniture over the weekend without pain or limitations. He denies any pain to start today. He reports compliance with HEP 1x day. He reports that pain is a lot less frequent. Pain: Pain Pain Level: 0 Pain Location: Shoulder - Right, Upper Arm - Right Description: (No pain to start today) Frequency: Intermittent Post Treatment Pain Post Treatment Pain Level: No Change Post Treatment Symptoms: Pt reported only fatigue today PROMIS Scales 08/26/2024 07/22/2024 06/12/2024 Higher is Better Phys Func - Score 50 (within normal limits) 46 (within normal limits) 44 (mild dysfunction) Phys Func - Percentile 50 34 27 Self-Eff Symptom - Score 53 (Average) 48 (Average) 48 (Average) Self-Eff Symptom - Percentile 62 42 42 T-scores: mean of general population = 50. 5 points is clinically meaningfully difference Percentiles provide an indication of how the patient's score ranks in relation to the general population. Higher percentile rankings indicate better function/quality of life. 50th percentile is the average of the general population and indicates half of respondents had a worse score. OBJECTIVE MEASURES WITH LEVEL OF FUNCTION: UE AROM R Shoulder Extension: 71 Degrees R Shoulder Flex: 147 Degrees R Shoulder ABduction: 160 Degrees R Shoulder Internal Rotation (Functional): 11cm less than L reaching behind back R Shoulder External Rotation (Functional): symmetrical with reaching behind head Special Tests - Shoulder Shoulder Special Tests: Empty Can, Daniel-Franklin, Speed's Empty Can: Right Negative Daniel-Franklin: Right Positive Speed's: Right Negative TREATMENT: Therapeutic Exercise: 1: SciFit UBE UEs only, seat #8 x5 minutes for ROM (Pt provided an update on his condition and plan of care reviewed. 1:1 throughout) 2: seated R UE rope and gisel for flexion 2x10 3: seated R UE rope and gisel for abduction 2x10 4: standing R UE rope and gisel IR reaching behind back 2x10 7: HEP was reviewed and continued compliance encouraged with rationale. He was educated on how to reach therapist with any future questions or concerns. 8: R UE body blade arm at side blade horizontal up and down 3x30 seconds 9: R UE bodyblade elbow flexed 90 degrees blade vertical side to side 3x30 seconds 10: R UE alphabet tracing A-Z x2 with 2# wrist weight Skilled Intervention: Patient was educated in proper exercise technique and purpose for exercises. Skilled judgment was used in selection of appropriate interventions. Correct performance of therapeutic exercises was facilitated with verbal, visual, and tactile cuing. Patient education as noted. Billing Therapeutic Exercise Treatment Minutes: 35 Skilled Treatment Time Minutes (timed and untimed codes): 35 Total Session Time (minutes): 35 Session Start Time : 1031 Session Stop Time : 1106 Storm Patel PT [facility] 08-26-2024 History of Present illness Narrative Images from the original note were not included. Episode Visit Count: 5 Therapist That Will Accept/Oversee The Plan Of Care: Storm Patel PT Start of Care Date: 06/12/24 Onset Date: 05/12/24 Plan of Care Certification Date: 09/25/17 Patient Identified by Name and Date of : Yes REHABILITATION AND SPORTS THERAPY PHYSICAL THERAPY DISCONTINUANCE OF CARE PLAN OF CARE UPDATE: Assessment: Bianca Delarosa is discontinued from Physical Therapy services due to goal achievement and maximal benefit. and Patient/Clinician mutual decision to discontinue current plan of care.. Patient was seen for 5 visits from Start of Care Date: 06/12/24 to 08/26/2024 and treatment included: Therapeutic exercise, Self-intermediate management, Patient/Family/Caregiver Education, and Body mechanics training. Updated: 07/22/24 and 08/26/24 Goals for Episode of Care: established 06/12/24 [place] in home exercise program. - MET Patient will decrease pain to 0/10 at rest and with functional activities to allow patient to improve reaching and lifting with R UE. - Partially MET Patient will increase active ROM of R shoulder to WFL, symmetrical and pain-free to allow pt to to improve performance of ADLs. - Partially MET Perform all reaching and lifting with R UE without pain. - Partially MET Increased strength of R shoulder to WFL for return to prior functional Level - Partially MET Improve postural awareness. - Partially MET Patient Goals: feel better - MET SUBJECTIVE: Pt reports that overall he is better than when we started. Specifially he feels that his ROM is better and lifting is better. He reports that his only limitation is with reaching behind. He even reports lifting totes and furniture over the weekend without pain or limitations. He denies any pain to start today. He reports compliance with HEP 1x day. He reports that pain is a lot less frequent. Pain: Pain Pain Level: 0 Pain Location: Shoulder - Right, Upper Arm - Right Description: (No pain to start today) Frequency: Intermittent Post Treatment Pain Post Treatment Pain Level: No Change Post Treatment Symptoms: Pt reported only fatigue today PROMIS Scales 08/26/2024 07/22/2024 06/12/2024 Higher is Better Phys Func - Score 50 (within normal limits) 46 (within normal limits) 44 (mild dysfunction) Phys Func - Percentile 50 34 27 Self-Eff Symptom - Score 53 (Average) 48 (Average) 48 (Average) Self-Eff Symptom - Percentile 62 42 42 T-scores: mean of general population = 50. 5 points is clinically meaningfully difference Percentiles provide an indication of how the patient's score ranks in relation to the general population. Higher percentile rankings indicate better function/quality of life. 50th percentile is the average of the general population and indicates half of respondents had a worse score. OBJECTIVE MEASURES WITH LEVEL OF FUNCTION: UE AROM R Shoulder Extension: 71 Degrees R Shoulder Flex: 147 Degrees R Shoulder ABduction: 160 Degrees R Shoulder Internal Rotation (Functional): 11cm less than L reaching behind back R Shoulder External Rotation (Functional): symmetrical with reaching behind head Special Tests - Shoulder Shoulder Special Tests: Empty Can, Daniel-Franklin, Speed's Empty Can: Right Negative Daniel-Franklin: Right Positive Speed's: Right Negative TREATMENT: Therapeutic Exercise: 1: SciFit UBE UEs only, seat #8 x5 minutes for ROM (Pt provided an update on his condition and plan of care reviewed. 1:1 throughout) 2: seated R UE rope and gisel for flexion 2x10 3: seated R UE rope and gisel for abduction 2x10 4: standing R UE rope and gisel IR reaching behind back 2x10 7: HEP was reviewed and continued compliance encouraged with rationale. He was educated on how to reach therapist with any future questions or concerns. 8: R UE body blade arm at side blade horizontal up and down 3x30 seconds 9: R UE bodyblade elbow flexed 90 degrees blade vertical side to side 3x30 seconds 10: R UE alphabet tracing A-Z x2 with 2# wrist weight Skilled Intervention: Patient was educated in proper exercise technique and purpose for exercises. Skilled judgment was used in selection of appropriate interventions. Correct performance of therapeutic exercises was facilitated with verbal, visual, and tactile cuing. Patient education as noted. Billing Therapeutic Exercise Treatment Minutes: 35 Skilled Treatment Time Minutes (timed and untimed codes): 35 Total Session Time (minutes): 35 Session Start Time : 1031 Session Stop Time : 1106 Storm Patel PT documented in this encounter [facility] 08-19-2024 History of Present illness Narrative Chief Complaint Patient presents with: Follow Up HPI Bianca Delarosa is a 48 year old male who presents here today for medication follow up. Patient with hx of DM 2, hyperlipidemia, GERD, mood disorder, thyroid nodules, allergies, depression, migraines, insomnia, MIKE as well as those reviewed and addressed below and in ROS 0 Result Notes 1 HM Topic Component Ref Range & Units 1 mo ago (10/18/23) 5 mo ago (07/07/23) 10 mo ago (01/27/23) 1 yr ago (10/21/22) 1 yr ago (03/04/22) Hemoglobin A1C (POCT) 4.2 - 5.6 % 10.1 Abnormal 11.1 Abnormal CM 11.0 Abnormal CM 11.2 Abnormal CM 10.5 Abnormal CM patient has a Hx of depression and anxiety and is currently taking buspar 15 mg BID, cymbalta 60 mg a day and Olanzapine 5 mg a day. Feels like his anxiety is ok. He just feels that at any given moment he could burst out crying. His feels his concentration is not as good as it had been. He is currently on methylphenidate CD 10 mg a day. He does not feel that the lack of focus may be contributing to the depression symptoms. He is also more easily agitated. No suicidal or homicidal thoughts. Patient says work is going ok. Personal life is doing ok and his daughter who is 13 is doing well. Past medical history, appointments, medications, allergies reviewed. 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 12/07/2022 Substance agreement signed 12/2022, Tox screen done 12/2022 Current use of proton pump inhibitor 09/26/2018 Diabetic eye exam (HCC) 01/27/2017 Last eye exam: 03/05/2019 Diverticulosis 03/31/2014 Dyslipidemia 03/31/2014 Low HDL, High Trigs Elevated antinuclear antibody (JALEEL) level 03/31/2014 Family history of malignant neoplasm of gastrointestinal tract 03/31/2014 ISABELLA (generalized anxiety disorder) 06/22/2020 GERD without esophagitis 09/26/2018 Hiatal hernia 03/31/2014 History of COVID-19 09/23/20232021, 09/2023 Hx of colonic polyp 03/31/2014 Needs next colonoscopy 08/2022 Lump 11/16/2019 benign left palm Major depressive disorder with single episode, 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 Lazaro 03/2018 Multiple thyroid nodules 02/27/2018 US 03/2020 per radiology no further f/u needed.. All benign Biopsy 03/[address] Lazaro. Benign. Obesity, Class II, BMI 35-39.9 10/21/2022 Obstructive sleep apnea syndrome 01/27/2017 On CPAP Other joint derangement, not elsewhere classified, lower leg 03/25/2013 Primary insomnia 07/28/2020 QT prolongation 04/20/2021 Seen [facility] 04/19/2021: [place] to be benign and related to anti-depressants. No changes needed. TMJ (temporomandibular joint disorder) 03/31/2014 Right side Type 2 diabetes mellitus without complication, without long-term current use of insulin ([facility]) 01/19/2017 Well adult exam 12/17/2014 Last done:11/16/2019 Previous Surgical History PAST SURGICAL HISTORY Procedure Laterality Date APPENDECTOMY HX 2004 ARTHROTOMY W/MENISCUS REPAIR KNEE Right 04/2021 COLONOSCOPY 06/2012 Dr. Corrigan +polyp, repeat 5 yrs COLONOSCOPY 08/30/2022 repeat in 5 years COLONOSCOPY FLX DX W/COLLJ SPEC WHEN PFRMD 08/16/2017 Colonoscopy, repeat 5 yrs, Dr. Bliss PAST SURGICAL HISTORY OF 2009 benign cysts: 1 from head and 2 from neck TONSILLECTOMY & ADENOIDECTOMY AGE 11/> 1979 TONSILLECTOMY HX Family History FAMILY HISTORY Problem Relation Age of Onset Colon Cancer Father 52 Coronary Artery Disease Father Coronary Artery Disease Mother 60's Hypertension Mother No Known Problems Brother No Known Problems Brother No Known Problems Brother Coronary Artery Disease Maternal Grandmother 60's Stroke Maternal Grandfather Colon Cancer Paternal Uncle 49 Alzheimer's Disease No Family History Prostate Cancer No Family History Breast Cancer No Family History Hyperlipidemia No Family History Kidney Disease No Family History Seizures No Family History Thyroid No Family History No Ocular Disease No Family History Patient Allergies ALLERGIES Allergen Reactions Topamax [Topiramate] Mental Status Change Unable to remember anything Celexa [Citalopram * Other: See Comments uneffective Effexor [Venlafaxin* Other: See Comments Sexual side affect Reglan [Metoclopram* Unknown Zoloft [Sertraline * Other: See Comments drowsy Current Medications Current Outpatient Medications on File Prior to Visit Medication Sig methylphenidate CD (METADATE CD) 10 mg biphasic capsule Take 1 capsule by mouth once daily for 30 days. OLANZapine (ZYPREXA) 5 mg tablet Take 1 tablet by mouth daily at bedtime. doxepin capsule 10 mg Take 1 capsule by mouth daily at bedtime. atorvastatin (LIPITOR) 80 mg tablet Take 1 tablet by mouth once daily. TRESIBA FLEXTOUCH U-100 100 unit/mL (3 mL) injection pen Inject 60 units subcutaneous daily at bedtime. Dispense 60 mL for 90 day supply. HUMALOG KWIKPEN INSULIN 100 unit/mL Inject subcutaneously 20 units breakfast, 20 units lunch, 20 units dinner plus sliding scale up to 82 units daily. Dispense 75 mL for a 90 day supply. Fenofibrate (LOFIBRA) 54 mg tablet Take 1 tablet by mouth once daily. busPIRone (BUSPAR) 15 mg tablet Take one tab by mouth twice a day. DULoxetine (CYMBALTA) 60 mg capsule Take 1 capsule by mouth once daily. esomeprazole (NEXIUM) 40 mg capsule Take 1 capsule by mouth once daily. Insulin Wykoff, Disposable, (DROPLET PEN NEEDLE) 31 gauge x 3/16 Use 4 PEN NEEDLES to inject MEDICATION subcutaneously daily metFORMIN (GLUCOPHAGE) 500 mg tablet Take 2 tablets by mouth two times a day with meals. Blood-Glucose Sensor (FREESTYLE EVERT 3 SENSOR) agnes Use one sensor every 14 day, IDDM, E11.9 zonisamide (ZONEGRAN) 25 mg capsule Take 1 capsule by mouth once daily. CPAP AUTO PAP 5-20 cmH20, CHIN STRAP, heated HUMIDITY, mask of patient's choice. LIFETIME SUPPLIES. SD Card. Download to [employer]. multivitamin tablet Take 1 tablet by mouth once daily. No current facility-administered medications on file prior to visit. Social History Social History Tobacco Use Smoking status: Never Smokeless tobacco: Never Vaping Use Vaping status: Never Used Substance Use Topics Alcohol use: Yes Comment: Rarely Drug use: No Review of Symptoms REVIEW OF SYSTEMS See HPI EXAM: BP 136/90 Pulse 86 Resp 16 Wt 132.9 kg (293 lb) BMI 37.60 kg/m Vs BP 128/84 Pulse 86 Resp 16 Wt 132.9 kg (293 lb) BMI 37.60 kg/m Last 6 Encounter Wt Readings: Date: Wt: 08/19/2024 132.9 kg (293 lb) 06/06/2024 135.6 kg (299 lb) 05/21/2024 134.7 kg (297 lb) 01/31/2024 136.7 kg (301 lb 5.9 oz) 01/17/2024 134.9 kg (297 lb 6.4 oz) 12/06/2023 132.5 kg (292 lb) General Appearance: Well appearing, alert, in no acute distress, well-hydrated, well nourished. and Obese. Neck: Supple, no adenopathy; thyroid symmetric, normal size, no bruits. Lungs: Lungs clear to auscultation. No wheezing, rhonchi, rales.. Heart: RRR without murmur, gallop, or rubs. No ectopy. Abdomen: Normal abdominal exam, Abdomen soft, non-tender. Bowel sounds normal. No masses, organomegaly. Extremities: No deformities, edema, skin discoloration, Good capillary refill. . Health Maintenance List Diabetic Foot Exam due on 07/07/2024 Urine Albumin:Creatinine Ratio due on 08/11/2024 HbA1C due on 08/21/2024 Dilated Retinal Exam due on 02/22/2025 LDL Cholesterol due on 05/21/2025 Annual PCP Team Chronic Disease Visit due on 06/06/2025 Colorectal Cancer Screening due on 08/30/2027 DTaP,Tdap,Td Vaccine(3 - Td or Tdap) due on 04/13/2031 Hepatitis B Vaccine Completed Influenza Vaccine Completed Covid-19 Vaccine Completed Pneumococcal Vaccine Completed Spirometry Discontinued Hepatitis C Screening Discontinued HIV Screening Discontinued Data reviewed A/P ASSESSMENT/PLAN: 1. Attention 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 - ICD9: 314.00, ICD10: F98.8 (primary diagnosis) Will increase to - METHYLPHENIDATE CD 20 MG BIPHASIC 30-70 CAPSULE,EXTENDED RELEASE once a day Check - PAIN PANEL, UR QUANT - TOXICOLOGY SCREEN, ROUTINE URINE - PAIN PANEL, UR QUANT - SPECIMEN VALIDITY, URINE Substance agreement updated. 2. Major depressive disorder with single episode, in partial remission (HCC) - ICD9: 296.25, ICD10: F32.4 - will increase the cymbalta to a total of 90 mg a day. 3. Medication management - ICD9: V58.69, ICD10: Z79.899 Check - PAIN PANEL, UR QUANT - TOXICOLOGY SCREEN, ROUTINE URINE - PAIN PANEL, UR QUANT - SPECIMEN VALIDITY, URINE Requested Prescriptions Signed Prescriptions Disp Refills DULoxetine (CYMBALTA) 60 mg capsule 90 capsule 1 Sig: Take 1 capsule by mouth once daily. esomeprazole (NEXIUM) 40 mg capsule 90 capsule 1 Sig: Take 1 capsule by mouth once daily. Fenofibrate (LOFIBRA) 54 mg tablet 90 tablet 1 Sig: Take 1 tablet by mouth once daily. methylphenidate CD (METADATE CD) 20 mg biphasic capsule 30 capsule 0 Sig: Take 1 capsule by mouth once daily for 30 days. DULoxetine (CYMBALTA) 30 mg capsule 90 capsule 0 Sig: Take 1 capsule by mouth once daily. F/u in 4 weeks for recheck . PDMP website checked and validated. All prescriptions have been APPROPRIATELY filled. No suspicious activity was identified. 08/19/2024 by MD Humberto Echeverria MD documented in this encounter [facility] 08-19-2024 Note HNO ID: [id number] Author: HUMBERTO JACKSON MD Service: ? Author Type: Physician Type: Progress Notes Filed: 08/19/2024 15:38 Note Text: Chief Complaint Patient presents with: Follow Up HPI Bianca Delarosa is a 48 year old male who presents here today for medication follow up. Patient with hx of DM 2, hyperlipidemia, GERD, mood disorder, thyroid nodules, allergies, depression, migraines, insomnia, MIKE as well as those reviewed and addressed below and in ROS 0 Result Notes 1 Topic Component Ref Range AND Units 1 mo ago (10/18/23) 5 mo ago (07/07/23) 10 mo ago (01/27/23) 1 yr ago (10/21/22) 1 yr ago (03/04/22) Hemoglobin A1C (POCT) 4.2 - 5.6 % 10.1 Abnormal 11.1 Abnormal CM 11.0 Abnormal CM 11.2 Abnormal CM 10.5 Abnormal CM patient has a Hx of depression and anxiety and is currently taking buspar 15 mg BID, cymbalta 60 mg a day and Olanzapine 5 mg a day. Feels like his anxiety is ok. He just feels that at any given moment he could burst out crying. His feels his concentration is not as good as it had been. He is currently on methylphenidate CD 10 mg a day. He does not feel that the lack of focus may be contributing to the depression symptoms. He is also more easily agitated. No suicidal or homicidal thoughts. Patient says work is going ok. Personal life is doing ok and his daughter who is 13 is doing well. Past medical history, appointments, medications, allergies reviewed. 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 12/07/2022 Substance agreement signed 12/2022, Tox screen done 12/2022 Current use of proton pump inhibitor 09/26/2018 Diabetic eye exam (HCC) 01/27/2017 Last eye exam: 03/05/2019 Diverticulosis 03/31/2014 Dyslipidemia 03/31/2014 Low HDL, High Trigs Elevated antinuclear antibody (JALEEL) level 03/31/2014 Family history of malignant neoplasm of gastrointestinal tract 03/31/2014 ISABELLA (generalized anxiety disorder) 06/22/2020 GERD without esophagitis 09/26/2018 Hiatal hernia 03/31/2014 History of COVID-19 09/23/20232021, 09/2023 Hx of colonic polyp 03/31/2014 Needs next colonoscopy 08/2022 Lump 11/16/2019 benign left palm Major depressive disorder with single episode, 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 Lazaro 03/2018 Multiple thyroid nodules 02/27/2018 US 03/2020 per radiology no further f/u needed.. All benign Biopsy 03/[address] Lazaro. Benign. Obesity, Class II, BMI 35-39.9 10/21/2022 Obstructive sleep apnea syndrome 01/27/2017 On CPAP Other joint derangement, not elsewhere classified, lower leg 03/25/2013 Primary insomnia 07/28/2020 QT prolongation 04/20/2021 Seen [facility] 04/19/2021: [place] to be benign and related to anti-depressants. No changes needed. TMJ (temporomandibular joint disorder) 03/31/2014 Right side Type 2 diabetes mellitus without complication, without long-term current use of insulin ([facility]) 01/19/2017 Well adult exam 12/17/2014 Last done:11/16/2019 Previous Surgical History PAST SURGICAL HISTORY Procedure Laterality Date APPENDECTOMY HX 2003 ARTHROTOMY W/MENISCUS REPAIR KNEE Right 04/2021 COLONOSCOPY 06/2012 Dr. Corrigan +polyp, repeat 5 yrs COLONOSCOPY 08/30/2022 repeat in 5 years COLONOSCOPY FLX DX W/COLLJ SPEC WHEN PFRMD 08/16/2017 Colonoscopy, repeat 5 yrs, Dr. Bliss PAST SURGICAL HISTORY OF 2008 benign cysts: 1 from head and 2 from neck TONSILLECTOMY AND ADENOIDECTOMY AGE 11/> 1979 TONSILLECTOMY HX Family History FAMILY HISTORY Problem Relation Age of Onset Colon Cancer Father 52 Coronary Artery Disease Father Coronary Artery Disease Mother 60's Hypertension Mother No Known Problems Brother No Known Problems Brother No Known Problems Brother Coronary Artery Disease Maternal Grandmother 60's Stroke Maternal Grandfather Colon Cancer Paternal Uncle 49 Alzheimer's Disease No Family History Prostate Cancer No Family History Breast Cancer No Family History Hyperlipidemia No Family History Kidney Disease No Family History Seizures No Family History Thyroid No Family History No Ocular Disease No Family History Patient Allergies ALLERGIES Allergen Reactions Topamax [Topiramate] Mental Status Change Unable to remember anything Celexa [Citalopram * Other: See Comments uneffective Effexor [Venlafaxin* Other: See Comments Sexual side affect Reglan [Metoclopram* Unknown Zoloft [Sertraline * Other: See Comments drowsy Current Medications Current Outpatient Medications on File Prior to Visit Medication Sig me (more content not included)... [facility] 08-19-2024 Telephone encounter Note The following approved medication requests have been transmitted electronically. Requested Prescriptions Signed Prescriptions Disp Refills methylphenidate CD (METADATE CD) 10 mg biphasic capsule 30 capsule 0 Sig: Take 1 capsule by mouth once daily for 30 days. Authorizing Provider: HUMBERTO JACKSON MD PDMP website checked and validated. All prescriptions have been APPROPRIATELY filled. No suspicious activity was identified. 08/19/2024 by Humberto Jackson MD [facility] 08-19-2024 Miscellaneous Notes The following approved medication requests have been transmitted electronically. Requested Prescriptions Signed Prescriptions Disp Refills methylphenidate CD (METADATE CD) 10 mg biphasic capsule 30 capsule 0 Sig: Take 1 capsule by mouth once daily for 30 days. Authorizing Provider: HUMBERTO JACKSON MD PDMP website checked and validated. All prescriptions have been APPROPRIATELY filled. No suspicious activity was identified. 08/19/2024 by Humberto Jackson MD Prescription Refill Information The patient has been identified by name and date of : Yes Caregiver verified no other encounters exist for this prescription request: Yes Caregiver confirmed with patient/requestor that no other refills are due, in the near future, with this provider at this time: Yes The last office visit in the department: 06/06/24 Does the patient have a future office visit with this provider/department: Yes Requested Prescriptions Pending Prescriptions Disp Refills methylphenidate CD (METADATE CD) 10 mg biphasic capsule 30 capsule 0 Sig: Take 1 capsule by mouth once daily for 30 days. Carmelo Lopez LPN August 19, 2024 10:37 AM documented in this encounter [facility] 08-19-2024 Telephone encounter Note Prescription Refill Information The patient has been identified by name and date of : Yes Caregiver verified no other encounters exist for this prescription request: Yes Caregiver confirmed with patient/requestor that no other refills are due, in the near future, with this provider at this time: Yes The last office visit in the department: 06/06/24 Does the patient have a future office visit with this provider/department: Yes Requested Prescriptions Pending Prescriptions Disp Refills methylphenidate CD (METADATE CD) 10 mg biphasic capsule 30 capsule 0 Sig: Take 1 capsule by mouth once daily for 30 days. Carmelo Lopez LPN August 19, 2024 10:[address] [facility] 08-05-2024 Note HNO ID: [id number] Author: STORM PATEL PT Service: ? Author Type: Physical Therapist Type: Progress Notes Filed: 08/05/2024 08:34 Note Text: Episode Visit Count: 4 Therapist That Will Accept/Oversee The Plan Of Care: Storm Patel PT Start of Care Date: 06/12/24 Onset Date: 05/12/24 Plan of Care Certification Date: 09/25/17 Patient Identified by Name and Date of : Yes REHABILITATION AND SPORTS THERAPY PHYSICAL THERAPY TREATMENT NOTE ASSESSMENT: Bianca Delarosa tolerated the session with fatigue, expected muscle soreness, and no issues. He demonstrated improvements in exercise tolerance. The patient will continue to benefit from ongoing skilled physical therapy to progress toward set goals. PLAN FOR NEXT VISIT: Continue with active therex to address R shoulder pain, ROM, strength and function. Progress to tolerance. SUBJECTIVE: Pt reports that overall his shoulder condition is unchanged. He reports partial compliance with HEP every other day. He reports missing his appointment last week because of work. He reports being late today because his daughter missed the bus. Pt reports that initially his pain was constant but now it is intermittent depending on the movements and use of R UE. Pain: Pain Pain Level: 0 Pain Location: Shoulder - Right, Upper Arm - Right Description: (No pain at rest to start today.) Frequency: Intermittent (He) Post Treatment Pain Post Treatment Pain Level: No Change Post Treatment Symptoms: After session he reported fatigue from a good workout but he denied any increase in pain. OBJECTIVE MEASURES WITH LEVEL OF FUNCTION: TREATMENT: Therapeutic Exercise: 1: SciFit UBE UEs only, seat #8 x5 minutes for ROM (Pt provided an update on his condition and plan of care reviewed. 1:1 throughout) 2: seated R UE rope and gisel for flexion 2x10 3: seated R UE rope and gisel for abduction 2x10 4: standing R UE rope and gisel IR reaching behind back 2x10 7: HEP was reviewed and improved compliance encouraged with rationale 8: R UE body blade arm at side blade horizontal up and down 3x30 seconds 9: R UE bodyblade elbow flexed 90 degrees blade vertical side to side 3x30 seconds 10: *R UE alphabet tracing A-Z x1 with 1# wrist weight 11: R UE 5 on the wall 1-5 3x30 seconds with 1# wrist weight. 12: R UE holding 2# ball on wall at shoulder height 2x20 CW and 2x20 CCW. Skilled Intervention: Patient was educated in proper exercise technique and purpose for exercises. Reviewed and educated patient on additions/changes for home exercise program as above (*). Skilled judgment was used in selection of appropriate interventions. Provided written instruction for home exercise program to facilitate proper performance and compliance. Correct performance of therapeutic exercises was facilitated with verbal, visual, and tactile cuing. Patient education as noted. Billing Therapeutic Exercise Treatment Minutes: 30 Skilled Treatment Time Minutes (timed and untimed codes): 30 Total Session Time (minutes): 30 Session Start Time : 800 Session Stop Time : 830 Storm Patel PT [facility] 08-05-2024 History of Present illness Narrative Episode Visit Count: 4 Therapist That Will Accept/Oversee The Plan Of Care: Storm Patel PT Start of Care Date: 06/12/24 Onset Date: 05/12/24 Plan of Care Certification Date: 09/25/17 Patient Identified by Name and Date of : Yes REHABILITATION AND SPORTS THERAPY PHYSICAL THERAPY TREATMENT NOTE ASSESSMENT: Bianca Delarosa tolerated the session with fatigue, expected muscle soreness, and no issues. He demonstrated improvements in exercise tolerance. The patient will continue to benefit from ongoing skilled physical therapy to progress toward set goals. PLAN FOR NEXT VISIT: Continue with active therex to address R shoulder pain, ROM, strength and function. Progress to tolerance. SUBJECTIVE: Pt reports that overall his shoulder condition is unchanged. He reports partial compliance with HEP every other day. He reports missing his appointment last week because of work. He reports being late today because his daughter missed the bus. Pt reports that initially his pain was constant but now it is intermittent depending on the movements and use of R UE. Pain: Pain Pain Level: 0 Pain Location: Shoulder - Right, Upper Arm - Right Description: (No pain at rest to start today.) Frequency: Intermittent (He) Post Treatment Pain Post Treatment Pain Level: No Change Post Treatment Symptoms: After session he reported fatigue from a good workout but he denied any increase in pain. OBJECTIVE MEASURES WITH LEVEL OF FUNCTION: TREATMENT: Therapeutic Exercise: 1: SciFit UBE UEs only, seat #8 x5 minutes for ROM (Pt provided an update on his condition and plan of care reviewed. 1:1 throughout) 2: seated R UE rope and gisel for flexion 2x10 3: seated R UE rope and gisel for abduction 2x10 4: standing R UE rope and gisel IR reaching behind back 2x10 7: HEP was reviewed and improved compliance encouraged with rationale 8: R UE body blade arm at side blade horizontal up and down 3x30 seconds 9: R UE bodyblade elbow flexed 90 degrees blade vertical side to side 3x30 seconds 10: *R UE alphabet tracing A-Z x1 with 1# wrist weight 11: R UE 5 on the wall 1-5 3x30 seconds with 1# wrist weight. 12: R UE holding 2# ball on wall at shoulder height 2x20 CW and 2x20 CCW. Skilled Intervention: Patient was educated in proper exercise technique and purpose for exercises. Reviewed and educated patient on additions/changes for home exercise program as above (*). Skilled judgment was used in selection of appropriate interventions. Provided written instruction for home exercise program to facilitate proper performance and compliance. Correct performance of therapeutic exercises was facilitated with verbal, visual, and tactile cuing. Patient education as noted. Billing Therapeutic Exercise Treatment Minutes: 30 Skilled Treatment Time Minutes (timed and untimed codes): 30 Total Session Time (minutes): 30 Session Start Time : 800 Session Stop Time : 830 Storm Patel PT Program_ID:[id number] Access Code: [email or web address] URL: [email or web address]/ Date: 08-05-2024 Prepared By: Storm Patel Program Notes Exercises - Standing Shoulder External Rotation AAROM with Dowel - 2-3 x daily - 7 x weekly - 2 sets - 10 reps - Isometric Shoulder Flexion at Wall - 1 x daily - 7 x weekly - 2 sets - 10 reps - Isometric Shoulder Extension at Wall - 1 x daily - 7 x weekly - 2 sets - 10 reps - Isometric Shoulder Abduction at Wall - 1 x daily - 7 x weekly - 2 sets - 10 reps - Standing Isometric Shoulder External Rotation with Doorway - 1 x daily - 7 x weekly - 2 sets - 10 reps - Standing Isometric Shoulder Internal Rotation with Towel Roll at Doorway - 1 x daily - 7 x weekly - 2 sets - 10 reps - Standing Shoulder Alphabet - 2 x daily - 7 x weekly - sets - 1 reps documented in this encounter [facility] 07-22-2024 Note HNO ID: [id number] Author: STORM PATEL PT Service: ? Author Type: Physical Therapist Type: Progress Notes Filed: 07/22/2024 11:15 Note Text: Episode Visit Count: 3 Therapist That Will Accept/Oversee The Plan Of Care: Storm Patel PT Start of Care Date: 06/12/24 Onset Date: 05/12/24 Plan of Care Certification Date: 09/25/17 Patient Identified by Name and Date of : Yes REHABILITATION AND SPORTS THERAPY PHYSICAL THERAPY PROGRESS REPORT PLAN OF CARE UPDATE: Assessment: Bianca Delarosa demonstrates moderate improvement in lifting, reaching behind back, and reaching overhead. The patient has progressed toward goals. Patient continues to present with impairments in ADL's, independence in exercise, overall function, range of motion, strength, and symptom management that interfere with reaching behind back, reaching overhead, lifting . Current prognosis is Excellent due to: current objective clinical presentation, good overall health status, positive past response to therapy, within-session changes, good support system/ coping skills. The patient will benefit from continued skilled therapy services to meet the updated goals for this plan of care as noted below. Updated: 07/22/24 Goals for Episode of Care: established 06/12/24 [place] in home exercise program. - Partially MET, will continue Patient will decrease pain to 0/10 at rest and with functional activities to allow patient to improve reaching and lifting with R UE. - Partially MET, will continue Patient will increase active ROM of R shoulder to WFL, symmetrical and pain-free to allow pt to to improve performance of ADLs. - Partially MET, will continue Perform all reaching and lifting with R UE without pain. - Not MET, will continue Increased strength of R shoulder to WFL for return to prior functional Level - Not MET, will continue Improve postural awareness. - Not MET, will continue Patient Goals: feel better - Partially MET, will continue Time Frame for Goals and Treatment : 08/19/24 Patient Goals: feel better Planned Interventions, Frequency, and Duration: 1x/week, 4 weeks Total Number of Visits Planned: 4 Patient to be seen for Therapeutic exercise ([id number]), Manual therapy ([id number]), Self-intermediate management ([id number]), Patient/Family/Caregiver Education, Body Mechanics Training PLAN FOR NEXT VISIT: Continue with active therex to address R shoulder pain, ROM, strength and function. Progress to tolerance. SUBJECTIVE: Pt reports that overall his R shoulder is feeling better and less painful. He reports traveling for work recently and when he first arrived in [place], his R shoulder pain was noticeably less. He reports that he was very active when he was in [place] doing a lot of lifting and working very long days(16 hours). As a result, he reports that he has been having increased pain the past several days. He reports that he has not been able to do the HEP for several weeks because he has not had time. He feels that initially his ability with reaching and lifting was improved but his trip out of town for work, set me back. Patient Goals: feel better Functional Limitations: reaching behind back, reaching overhead, lifting Prior Level of Function: Independent without limitations Intake Information: Prescription present Previous Treatment: None Pain: Pain Pain Level: 3 Pain Location: Shoulder - Right, Upper Arm - Right Description: Sharp Frequency: Intermittent Post Treatment Pain Post Treatment Pain Level: Better Post Treatment Symptoms: After session today, pt reported that his R shane felt better with improved ROM. PROMIS Scales 07/22/2024 06/12/2024 11/15/2020 Higher is Better Phys Func - Score 46 (within normal limits) 44 (mild dysfunction) 37 (moderate dysfunction) Phys Func - Percentile 34 27 10 Self-Eff Symptom - Score 48 (Average) 48 (Average) 50 (Average) Self-Eff Symptom - Percentile 42 42 50 T-scores: mean of general population = 50. 5 points is clinically meaningfully difference Percentiles provide an indication of how the patient's score ranks in relation to the general population. Higher percentile rankings indicate better function/quality of life. 50th percentile is the average of the general population and indicates half of respondents had a worse score. OBJECTIVE MEASURES WITH LEVEL OF FUNCTION: UE AROM R Shoulder Extension: 70 Degrees R Shoulder Flex: 144 Degrees R Shoulder ABduction: 153 Degrees R Shoulder Internal Rotation (Functional): 13cm less than L reaching behind back R Shoulder External Rotation (Functional): symmetrical with reaching behind head TREATMENT: Therapeutic Exercise: 1: SciFit UBE seat #8 x5 minutes for ROM (Pt provided an update on his condition and plan of care reviewed. 1:1 throughout) 2: seated R UE rope and gisel for flexion 2x10 3: seated R UE rope and gisel for abduction 2x10 4: standing R UE (more content not included)... [facility] 07-22-2024 History of Present illness Narrative Images from the original note were not included. Episode Visit Count: 3 Therapist That Will Accept/Oversee The Plan Of Care: Storm Patel PT Start of Care Date: 06/12/24 Onset Date: 05/12/24 Plan of Care Certification Date: 09/25/17 Patient Identified by Name and Date of : Yes REHABILITATION AND SPORTS THERAPY PHYSICAL THERAPY PROGRESS REPORT PLAN OF CARE UPDATE: Assessment: Bianca Delarosa demonstrates moderate improvement in lifting, reaching behind back, and reaching overhead. The patient has progressed toward goals. Patient continues to present with impairments in ADL's, independence in exercise, overall function, range of motion, strength, and symptom management that interfere with reaching behind back, reaching overhead, lifting . Current prognosis is Excellent due to: current objective clinical presentation, good overall health status, positive past response to therapy, within-session changes, good support system/ coping skills. The patient will benefit from continued skilled therapy services to meet the updated goals for this plan of care as noted below. Updated: 07/22/24 Goals for Episode of Care: established 06/12/24 [place] in home exercise program. - Partially MET, will continue Patient will decrease pain to 0/10 at rest and with functional activities to allow patient to improve reaching and lifting with R UE. - Partially MET, will continue Patient will increase active ROM of R shoulder to WFL, symmetrical and pain-free to allow pt to to improve performance of ADLs. - Partially MET, will continue Perform all reaching and lifting with R UE without pain. - Not MET, will continue Increased strength of R shoulder to WFL for return to prior functional Level - Not MET, will continue Improve postural awareness. - Not MET, will continue Patient Goals: feel better - Partially MET, will continue Time Frame for Goals and Treatment : 08/19/24 Patient Goals: feel better Planned Interventions, Frequency, and Duration: 1x/week, 4 weeks Total Number of Visits Planned: 4 Patient to be seen for Therapeutic exercise (19210), Manual therapy (36443), Self-intermediate management (83582), Patient/Family/Caregiver Education, Body Mechanics Training PLAN FOR NEXT VISIT: Continue with active therex to address R shoulder pain, ROM, strength and function. Progress to tolerance. SUBJECTIVE: Pt reports that overall his R shoulder is feeling better and less painful. He reports traveling for work recently and when he first arrived in [place], his R shoulder pain was noticeably less. He reports that he was very active when he was in [place] doing a lot of lifting and working very long days(16 hours). As a result, he reports that he has been having increased pain the past several days. He reports that he has not been able to do the HEP for several weeks because he has not had time. He feels that initially his ability with reaching and lifting was improved but his trip out of town for work, set me back. Patient Goals: feel better Functional Limitations: reaching behind back, reaching overhead, lifting Prior Level of Function: Independent without limitations Intake Information: Prescription present Previous Treatment: None Pain: Pain Pain Level: 3 Pain Location: Shoulder - Right, Upper Arm - Right Description: Sharp Frequency: Intermittent Post Treatment Pain Post Treatment Pain Level: Better Post Treatment Symptoms: After session today, pt reported that his R shane felt better with improved ROM. PROMIS Scales 07/22/2024 06/12/2024 11/15/2020 Higher is Better Phys Func - Score 46 (within normal limits) 44 (mild dysfunction) 37 (moderate dysfunction) Phys Func - Percentile 34 27 10 Self-Eff Symptom - Score 48 (Average) 48 (Average) 50 (Average) Self-Eff Symptom - Percentile 42 42 50 T-scores: mean of general population = 50. 5 points is clinically meaningfully difference Percentiles provide an indication of how the patient's score ranks in relation to the general population. Higher percentile rankings indicate better function/quality of life. 50th percentile is the average of the general population and indicates half of respondents had a worse score. OBJECTIVE MEASURES WITH LEVEL OF FUNCTION: UE AROM R Shoulder Extension: 70 Degrees R Shoulder Flex: 144 Degrees R Shoulder ABduction: 153 Degrees R Shoulder Internal Rotation (Functional): 13cm less than L reaching behind back R Shoulder External Rotation (Functional): symmetrical with reaching behind head TREATMENT: Therapeutic Exercise: 1: SciFit UBE seat #8 x5 minutes for ROM (Pt provided an update on his condition and plan of care reviewed. 1:1 throughout) 2: seated R UE rope and gisel for flexion 2x10 3: seated R UE rope and gisel for abduction 2x10 4: standing R UE rope and gisel IR reaching behind back 2x10 5: standing wand AAROM for R shoulder flexion 2x10 6: standing wand AAROM for R shoulder abduction 2x10 7: standing wand AAROM for R shoulder IR/ER (elbows 90 degrees) 2x10 8: R UE body blade arm at side blade horizontal up and down 3x30 seconds 9: R UE bodyblade elbow flexed 90 degrees blade vertical side to side 3x30 seconds 10: R UE alphabet tracting A-Z without weight 11: R UE 5 on the wall 1-5 3x30 seconds without weight. 12: R UE holding 2# ball on wall at shoulder height 2x10 CW and 2x10 CCW. Skilled Intervention: Patient was educated in proper exercise technique and purpose for exercises. Skilled judgment was used in selection of appropriate interventions. Correct performance of therapeutic exercises was facilitated with verbal, visual, and tactile cuing. Patient education as noted. Billing Therapeutic Exercise Treatment Minutes: 45 Skilled Treatment Time Minutes (timed and untimed codes): 45 Total Session Time (minutes): 45 Session Start Time : 934 Session Stop Time : 1020 Storm Patel PT documented in this encounter [facility] 06-28-2024 History of Present illness Narrative Program_ID:[id number] Access Code: [email or web address] URL: [email or web address]/ Date: 06-28-2024 Prepared By: Storm Patel Program Notes Exercises - Standing Shoulder External Rotation AAROM with Dowel - 2-3 x daily - 7 x weekly - 2 sets - 10 reps - Isometric Shoulder Flexion at Wall - 1 x daily - 7 x weekly - 2 sets - 10 reps - Isometric Shoulder Extension at Wall - 1 x daily - 7 x weekly - 2 sets - 10 reps - Isometric Shoulder Abduction at Wall - 1 x daily - 7 x weekly - 2 sets - 10 reps - Standing Isometric Shoulder External Rotation with Doorway - 1 x daily - 7 x weekly - 2 sets - 10 reps - Standing Isometric Shoulder Internal Rotation with Towel Roll at Doorway - 1 x daily - 7 x weekly - 2 sets - 10 reps Episode Visit Count: 2 Therapist That Will Accept/Oversee The Plan Of Care: Storm Patel PT Start of Care Date: 06/12/24 Onset Date: 05/12/24 Plan of Care Certification Date: 09/25/17 Patient Identified by Name and Date of : Yes REHABILITATION AND SPORTS THERAPY PHYSICAL THERAPY TREATMENT NOTE ASSESSMENT: Bianca Saenz Emmanueljaimee tolerated the session with fatigue and expected muscle soreness. He demonstrated improvements in R shoulder ROM grossly. The patient will continue to benefit from ongoing skilled physical therapy to progress toward set goals. PLAN FOR NEXT VISIT: Asses response to isometrics and continue with strengthening and ROM. SUBJECTIVE: Pt reports that his shoudler is doing better, but it still hurts. Reaching back is still bothersome. Still can lift things without difficulty. Pain: Pain Pain Level: 0 Pain Location: Shoulder - Right, Upper Arm - Right Post Treatment Pain Post Treatment Symptoms: Pt stated fatigue at end of session., OBJECTIVE MEASURES WITH LEVEL OF FUNCTION: UE AROM R Shoulder Flex: 144 Degrees R Shoulder ABduction: 142 Degrees TREATMENT: Therapeutic Exercise: 1: standing wand AAROM for R shoulder flexion 2x10 2: standing wand AAROM for R shoulder abduction 2x10 3: standing wand AAROM for R shoulder IR/ER (elbows 90 degrees) 2x10 4: *Shoulder isometrics flex, ext, IR, ER ,abduction x10 with 5 second holds 5: Standing wand IR behind back x 10 6: Ball on wall CW and CCW 2x10 each Skilled Intervention: Patient was educated in proper exercise technique and purpose for exercises. Reviewed and educated patient on additions/changes for home exercise program as above (*). Skilled judgment was used in selection of appropriate interventions. Provided written instruction for home exercise program to facilitate proper performance and compliance. Correct performance of therapeutic exercises was facilitated with verbal and visual cuing. Billing Therapeutic Exercise Treatment Minutes: 40 Skilled Treatment Time Minutes (timed and untimed codes): 40 Total Session Time (minutes): 40 Session Start Time : 802 Session Stop Time : 842 TERRY Ye PT documented in this encounter [facility] 06-28-2024 Note HNO ID: [id number] Author: STORM PATEL PT Service: ? Author Type: Physical Therapist Type: Progress Notes Filed: 06/28/2024 10:27 Note Text: Episode Visit Count: 2 Therapist That Will Accept/Oversee The Plan Of Care: Storm Patel PT Start of Care Date: 06/12/24 Onset Date: 05/12/24 Plan of Care Certification Date: 09/25/17 Patient Identified by Name and Date of : Yes REHABILITATION AND SPORTS THERAPY PHYSICAL THERAPY TREATMENT NOTE ASSESSMENT: Bianca Delarosa tolerated the session with fatigue and expected muscle soreness. He demonstrated improvements in R shoulder ROM grossly. The patient will continue to benefit from ongoing skilled physical therapy to progress toward set goals. PLAN FOR NEXT VISIT: Asses response to isometrics and continue with strengthening and ROM. SUBJECTIVE: Pt reports that his shoudler is doing better, but it still hurts. Reaching back is still bothersome. Still can lift things without difficulty. Pain: Pain Pain Level: 0 Pain Location: Shoulder - Right, Upper Arm - Right Post Treatment Pain Post Treatment Symptoms: Pt stated fatigue at end of session., OBJECTIVE MEASURES WITH LEVEL OF FUNCTION: UE AROM R Shoulder Flex: 144 Degrees R Shoulder ABduction: 142 Degrees TREATMENT: Therapeutic Exercise: 1: standing wand AAROM for R shoulder flexion 2x10 2: standing wand AAROM for R shoulder abduction 2x10 3: standing wand AAROM for R shoulder IR/ER (elbows 90 degrees) 2x10 4: *Shoulder isometrics flex, ext, IR, ER ,abduction x10 with 5 second holds 5: Standing wand IR behind back x 10 6: Ball on wall CW and CCW 2x10 each Skilled Intervention: Patient was educated in proper exercise technique and purpose for exercises. Reviewed and educated patient on additions/changes for home exercise program as above (*). Skilled judgment was used in selection of appropriate interventions. Provided written instruction for home exercise program to facilitate proper performance and compliance. Correct performance of therapeutic exercises was facilitated with verbal and visual cuing. Billing Therapeutic Exercise Treatment Minutes: 40 Skilled Treatment Time Minutes (timed and untimed codes): 40 Total Session Time (minutes): 40 Session Start Time : 802 Session Stop Time : 842 Ruby Cho, TERRY Patel, PT [facility] 06-17-2024 Telephone encounter Note Prescription Refill Information The patient has been identified by name and date of : Yes Caregiver verified no other encounters exist for this prescription request: Yes Caregiver confirmed with patient/requestor that no other refills are due, in the near future, with this provider at this time: Yes The last office visit in the department: 05/2024 Does the patient have a future office visit with this provider/department: Yes 12/2024 Requested Prescriptions Pending Prescriptions Disp Refills OLANZapine (ZYPREXA) 5 mg tablet 90 tablet 1 Sig: Take 1 tablet by mouth daily at bedtime. doxepin capsule 10 mg 90 capsule 1 Sig: Take 1 capsule by mouth daily at bedtime. methylphenidate CD (METADATE CD) 10 mg biphasic capsule 30 capsule 0 Sig: Take 1 capsule by mouth once daily for 30 days. Tam Daugherty MA June 17, 2024 8:[address] [facility] 06-17-2024 Miscellaneous Notes Prescription Refill Information The patient has been identified by name and date of : Yes Caregiver verified no other encounters exist for this prescription request: Yes Caregiver confirmed with patient/requestor that no other refills are due, in the near future, with this provider at this time: Yes The last office visit in the department: 05/2024 Does the patient have a future office visit with this provider/department: Yes 12/2024 Requested Prescriptions Pending Prescriptions Disp Refills OLANZapine (ZYPREXA) 5 mg tablet 90 tablet 1 Sig: Take 1 tablet by mouth daily at bedtime. doxepin capsule 10 mg 90 capsule 1 Sig: Take 1 capsule by mouth daily at bedtime. methylphenidate CD (METADATE CD) 10 mg biphasic capsule 30 capsule 0 Sig: Take 1 capsule by mouth once daily for 30 days. Tam Daugherty MA June 17, 2024 8:35 AM documented in this encounter [facility] 06-12-2024 Note HNO ID: [id number] Author: STORM PATEL PT Service: ? Author Type: Physical Therapist Type: Progress Notes Filed: 06/12/2024 10:01 Note Text: Episode Visit Count: 1 Therapist That Will Accept/Oversee The Plan Of Care: Storm Patel PT Start of Care Date: 06/12/24 Onset Date: 05/12/24 Plan of Care Certification Date: 09/25/17 Patient Identified by Name and Date of : Yes REHABILITATION AND SPORTS THERAPY PHYSICAL THERAPY EVALUATION PLAN OF CARE: Assessment: Bianca Delarosa presents with chief complaint of R shoulder pain that interferes with reaching behind back, reaching overhead, lifting. He presents with impairments in ADL's, independence in exercise, overall function, posture, range of motion, soft tissue healing, symptom management, and tissue tenderness. PROMIS? (Patient-Reported Outcomes Measurement Information System) scores were reviewed and identified as a rehabilitation concern. Prognosis for therapy is Excellent due to: current objective clinical presentation, good overall health status, acuteness of condition, within-session changes, good support system/ coping skills. He will benefit from skilled therapy services to meet the goals established for this plan of care as noted below. Goals for Episode of Care: established 06/12/24 [place] in home exercise program. Patient will decrease pain to 0/10 at rest and with functional activities to allow patient to improve reaching and lifting with R UE. Patient will increase active ROM of R shoulder to WFL, symmetrical and pain-free to allow pt to to improve performance of ADLs. Perform all reaching and lifting with R UE without pain. Increased strength of R shoulder to WFL for return to prior functional level Improve postural awareness. Patient Goals: feel better Time Frame for Goals and Treatment : 07/24/24 Planned Interventions, Frequency, and Duration: Current Frequency: 2x/week (will start with 1x week) Duration: 6 weeks Total Number of Visits Planned: 12 Planned Treatment Interventions: Therapeutic exercise (67224), Manual therapy (92806), Self-intermediate management (78346), Patient/Family/Caregiver Education, Body Mechanics Training PLAN FOR NEXT VISIT: Review, correct and progress HEP to tolerance. Continue with AAROM and AROM therex for R shoulder to increase ROM, strength and function of R UE. Patient demonstrates good understanding of plan of care and treatment. The above goals and plan of care were discussed and agreed upon by patient/family. SUBJECTIVE: Pt reports constant pain in R shoulder and upper arm from his elbow to his neck. He reports that this pain is constant but varies in intensity. He reports that he was in his car and reached behind himself at onset. 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 [employer] Patient Lives With: Spouse, Family (daughter age 13, 2 adult children on their own) Intake Information: Prescription present Previous Treatment: None Pain: Pain Pain Level: 2 (currently) Pain Location: Shoulder - Right, Upper Arm - Right, Elbow - Right, Neck - Right Description: Dull (dull and constant at rest but sharp with movement) Frequency: Continuous, With movement (constant but varies in intensity) Detailed Pain Score: Yes Worst Pain Level: 6 Average Pain Level: 2 Best Pain Level: 1 Post Treatment Pain Post Treatment Pain Level: No Change Post Treatment Symptoms: Pt denied any increase in pain after session, just mild fatigue. AAROM is much greater than AROM in R shoulder PROMIS Scales 06/12/2024 11/15/2020 10/20/2020 Higher is Better Phys Func - Score 44 (mild dysfunction) 37 (moderate dysfunction) 38 (moderate dysfunction) Phys Func - Percentile 27 10 12 Self-Eff Symptom - Score 48 (Average) 50 (Average) 53 (Average) Self-Eff Symptom - Percentile 42 50 62 T-scores: mean of general population = 50. 5 points is clinically meaningfully difference Percentiles provide an indication of how the patient's score ranks in relation to the general population. Higher percentile rankings indicate better function/quality of life. 50th percentile is the average of the general population and indicates half of respondents had a worse score. OBJECTIVE MEASURES WITH LEVEL OF FUNCTION: Shoulder Observations R Shoulder Palpation Tenderness: Bicipital groove (sub AC region) L Shoulder Palpation Tenderness: No tenderness noted UE AROM R Shoulder Extension: 62 Degrees R Shoulder Flex: 126 Degrees R Shoulder ABduction: 83 Degrees R Shoulder Internal Rotation (Functional): 23cm less than L reaching behind back R Shoulder External Rotation (Functional): 6cm less t (more content not included)... [facility] 06-12-2024 History of Present illness Narrative Images from the original note were not included. Episode Visit Count: 1 Therapist That Will Accept/Oversee The Plan Of Care: Storm Patel PT Start of Care Date: 06/12/24 Onset Date: 05/12/24 Plan of Care Certification Date: 09/25/17 Patient Identified by Name and Date of : Yes REHABILITATION AND SPORTS THERAPY PHYSICAL THERAPY EVALUATION PLAN OF CARE: Assessment: Bianca Delarosa presents with chief complaint of R shoulder pain that interferes with reaching behind back, reaching overhead, lifting. He presents with impairments in ADL's, independence in exercise, overall function, posture, range of motion, soft tissue healing, symptom management, and tissue tenderness. PROMIS (Patient-Reported Outcomes Measurement Information System) scores were reviewed and identified as a rehabilitation concern. Prognosis for therapy is Excellent due to: current objective clinical presentation, good overall health status, acuteness of condition, within-session changes, good support system/ coping skills. He will benefit from skilled therapy services to meet the goals established for this plan of care as noted below. Goals for Episode of Care: established 06/12/24 [place] in home exercise program. Patient will decrease pain to 0/10 at rest and with functional activities to allow patient to improve reaching and lifting with R UE. Patient will increase active ROM of R shoulder to WFL, symmetrical and pain-free to allow pt to to improve performance of ADLs. Perform all reaching and lifting with R UE without pain. Increased strength of R shoulder to WFL for return to prior functional level Improve postural awareness. Patient Goals: feel better Time Frame for Goals and Treatment : 07/24/24 Planned Interventions, Frequency, and Duration: Current Frequency: 2x/week (will start with 1x week) Duration: 6 weeks Total Number of Visits Planned: 12 Planned Treatment Interventions: Therapeutic exercise (30178), Manual therapy (85960), Self-intermediate management (72243), Patient/Family/Caregiver Education, Body Mechanics Training PLAN FOR NEXT VISIT: Review, correct and progress HEP to tolerance. Continue with AAROM and AROM therex for R shoulder to increase ROM, strength and function of R UE. Patient demonstrates good understanding of plan of care and treatment. The above goals and plan of care were discussed and agreed upon by patient/family. SUBJECTIVE: Pt reports constant pain in R shoulder and upper arm from his elbow to his neck. He reports that this pain is constant but varies in intensity. He reports that he was in his car and reached behind himself at onset. 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 [employer] Patient Lives With: Spouse, Family (daughter age 13, 2 adult children on their own) Intake Information: Prescription present Previous Treatment: None Pain: Pain Pain Level: 2 (currently) Pain Location: Shoulder - Right, Upper Arm - Right, Elbow - Right, Neck - Right Description: Dull (dull and constant at rest but sharp with movement) Frequency: Continuous, With movement (constant but varies in intensity) Detailed Pain Score: Yes Worst Pain Level: 6 Average Pain Level: 2 Best Pain Level: 1 Post Treatment Pain Post Treatment Pain Level: No Change Post Treatment Symptoms: Pt denied any increase in pain after session, just mild fatigue. AAROM is much greater than AROM in R shoulder PROMIS Scales 06/12/2024 11/15/2020 10/20/2020 Higher is Better Phys Func - Score 44 (mild dysfunction) 37 (moderate dysfunction) 38 (moderate dysfunction) Phys Func - Percentile 27 10 12 Self-Eff Symptom - Score 48 (Average) 50 (Average) 53 (Average) Self-Eff Symptom - Percentile 42 50 62 T-scores: mean of general population = 50. 5 points is clinically meaningfully difference Percentiles provide an indication of how the patient's score ranks in relation to the general population. Higher percentile rankings indicate better function/quality of life. 50th percentile is the average of the general population and indicates half of respondents had a worse score. OBJECTIVE MEASURES WITH LEVEL OF FUNCTION: Shoulder Observations R Shoulder Palpation Tenderness: Bicipital groove (sub AC region) L Shoulder Palpation Tenderness: No tenderness noted UE AROM R Shoulder Extension: 62 Degrees R Shoulder Flex: 126 Degrees R Shoulder ABduction: 83 Degrees R Shoulder Internal Rotation (Functional): 23cm less than L reaching behind back R Shoulder External Rotation (Functional): 6cm less than L reaching behind head L Shoulder Extension: 80 Degrees L Shoulder Flex: 161 Degrees L Shoulder ABduction: 163 Degrees UE and Cervical Strength R UE Strength: MMT deferred secondary to pain. Strength will be addressed prn if pain resolves and weakness persists. Special Tests - Cervical Cervical Special Tests: Spurling Spurling: Right Negative, Left Negative Special Tests - Shoulder Shoulder Special Tests: Empty Can, Daniel-Franklin, Speed's Empty Can: Right Negative (pain but no weakness) Daniel-Franklin: Right Positive Speed's: Right Positive Vitals BP: 142/97 Pulse: 82 Education: Education Learning Preferences: Demonstration, Explanation, Performance, Printed Materials Barriers: None Learning/educational needs: Home exercise program, Plan of Care, Posture, Body Mechanics Education Provided: Yes, see treatment interventions for education provided Education Provided To: Patient Education Mode/Type: Demonstration, Explanation/Discussion, Literature/Printed Materials, Performance Response to Education/Teach Back: States/Identifies, Return Demonstration, Requires Review/Additional Education TREATMENT: PT Treatment Interventions: Therapeutic Exercise Evaluation Therapeutic Exercise: 1: Pt was educated extensively on the anatomy of R shoulder, likely etiology of symptoms (impingement) and rationale for plan of care recommendations. Pictures were used to clarify all education, espcecially anatomy. Pt was advised to stop any exercise that causes increased pain and to try to avoid causing increased pain with functional activities. Postural correction encouraged. 2: *standing wand AAROM for R shoulder flexion 2x10 3: *standing wand AAROM for R shoulder abduction 2x10 4: *standing wand AAROM for R shoulder IR/ER (elbows 90 degrees) 2x10 Skilled Intervention: Patient was educated in proper exercise technique and purpose for exercises. Reviewed and educated patient on additions/changes for home exercise program as above (*). Skilled judgment was used in selection of appropriate interventions. Provided written instruction for home exercise program to facilitate proper performance and compliance. Correct performance of therapeutic exercises was facilitated with verbal, visual, and tactile cuing. Patient education as noted. Billing * Evaluation Low Complexity: 1 Unit Therapeutic Exercise Treatment Minutes: 21 Skilled Treatment Time Minutes (timed and untimed codes): 41 Total Session Time (minutes): 41 Session Start Time : 902 Session Stop Time : 943 Storm Patel PT Program_ID:[id number] Access Code: [email or web address] URL: [email or web address]/ Date: 06-12-2024 Prepared By: Storm Patel Program Notes Exercises - Standing Shoulder Flexion AAROM with Dowel - 2-3 x daily - 7 x weekly - 2 sets - 10 reps - Standing Shoulder Abduction AAROM with Dowel - 2-3 x daily - 7 x weekly - 2 sets - 10 reps - Standing Shoulder External Rotation AAROM with Dowel - 2-3 x daily - 7 x weekly - 2 sets - 10 reps documented in this encounter [facility] 06-06-2024 Note HNO ID: [id number] Author: DOMINIK KELLEY APRN.CIRCUIT COURT CLERK Service: ? Author Type: Nurse Practitioner Type: Progress Notes Filed: 06/06/2024 08:09 Note Text: Chief Complaint Patient presents with: 6 Month Exam HPI Bianca Delarosa is a 48 year old male who presents here today for Above Complaints.. Patient presents for routine follow up. Patient reports feeling generally fatigued but has no other complaints. Past medical history, appointments, medications, allergies reviewed. Previous Medical History PAST MEDICAL HISTORY 09/24/2023: Acute hypoxemic respiratory failure due to COVID-19 ([facility]) 03/31/2014: Agitation 03/31/2014: Allergic rhinitis 03/31/2014: Allergy-induced asthma Comment: Mild intermitant 12/07/2022: Attention 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 Comment: Substance agreement signed 12/2022, Tox screen done 12/202209/26/2018: Current use of proton pump inhibitor 01/27/2017: Diabetic eye exam ([facility]) Comment: Last eye exam: 03/05/2019 03/31/2014: Diverticulosis 03/31/2014: Dyslipidemia Comment: Low HDL, High Trigs 03/31/2014: Elevated antinuclear antibody (JALEEL) level 03/31/2014: Family history of malignant neoplasm of gastrointestinal tract 06/22/2020: ISABELLA (generalized anxiety disorder) 09/26/2018: GERD without esophagitis 03/31/2014: Hiatal hernia 09/23/2023: History of COVID-19 Comment: 2021, 09/202303/31/2014: Hx of colonic polyp Comment: Needs next colonoscopy 08/202211/16/2019: Lump Comment: benign left palm 09/26/2018: Major depressive disorder with single episode, in partial remission ([facility]) 09/11/2015: Migraine without aura and without status migrainosus, not intractable 03/31/2014: Mood disorder ([facility]) 02/27/2018: Multiple thyroid nodules Comment: Seen Dr. Lazaro 03/201802/27/2018: Multiple thyroid nodules Comment: US 03/2020 per radiology no further f/u needed.. All benign Biopsy 03/[address] Lazaro. Benign. 10/21/2022: Obesity, Class II, BMI 35-39.9 01/27/2017: Obstructive sleep apnea syndrome Comment: On CPAP 03/25/2013: Other joint derangement, not elsewhere classified, lower leg 07/28/2020: Primary insomnia 04/20/2021: QT prolongation Comment: Seen [facility] 04/19/2021: Retsof to be benign and related to anti-depressants. No changes needed. 03/31/2014: TMJ (temporomandibular joint disorder) Comment: Right side 01/19/2017: Type 2 diabetes mellitus without complication, without long-term current use of insulin ([facility]) 12/17/2014: Well adult exam Comment: Last done:11/16/2019 Previous Surgical History PAST SURGICAL HISTORY 2004: APPENDECTOMY HX 04/2021: ARTHROTOMY W/MENISCUS REPAIR KNEE; Right 06/2012: COLONOSCOPY Comment: Dr. Corrigan +polyp, repeat 5 yrs 08/30/2022: COLONOSCOPY Comment: repeat in 5 years 08/16/2017: COLONOSCOPY FLX DX W/COLLJ SPEC WHEN PFRMD Comment: Colonoscopy, repeat 5 yrs, Dr. Bliss 2009: PAST SURGICAL HISTORY OF Comment: benign cysts: 1 from head and 2 from neck 1979: TONSILLECTOMY AND ADENOIDECTOMY AGE 11/> No date: TONSILLECTOMY HX Family History FAMILY HISTORY Problem Relation Age of Onset Colon Cancer Father 52 Coronary Artery Disease Father Coronary Artery Disease Mother 60's Hypertension Mother No Known Problems Brother No Known Problems Brother No Known Problems Brother Coronary Artery Disease Maternal Grandmother 60's Stroke Maternal Grandfather Colon Cancer Paternal Uncle 49 Alzheimer's Disease No Family History Prostate Cancer No Family History Breast Cancer No Family History Hyperlipidemia No Family History Kidney Disease No Family History Seizures No Family History Thyroid No Family History No Ocular Disease No Family History Patient Allergies ALLERGIES Allergen Reactions Topamax [Topiramate] Mental Status Change Unable to remember anything Celexa [Citalopram * Other: See Comments uneffective Effexor [Venlafaxin* Other: See Comments Sexual side affect Reglan [Metoclopram* Unknown Zoloft [Sertraline * Other: See Comments drowsy Current Medications Current Outpatient Medications on File Prior to Visit Medication Sig methylphenidate CD (METADATE CD) 10 mg biphasic capsule Take 1 capsule by mouth once daily for 30 days. TRESIBA FLEXTOUCH U-100 100 unit/mL (3 mL) injection pen Inject 60 units subcutaneous daily at bedtime. Dispense 60 mL for 90 day supply. HUMALOG KWIKPEN INSULIN 100 unit/mL Inject subcutaneously 20 units breakfast, 20 units lunch, 20 units dinner plus sliding scale up to 82 units daily. Dispense 75 mL for a 90 day supply. atorvastatin (LIPITOR) 40 mg tablet Take 1 tablet by mouth once daily. Fenofibrate (LOFIBRA) 54 mg tablet Take 1 tablet by mouth once daily. busPIRone (BUSPAR) 15 mg tablet Take one tab by mouth twice a day. DULoxetine (CYMBALTA) 60 mg capsule Take 1 capsule by mouth once daily. OLANZapine (ZYPREXA) 5 mg tablet Take 1 tablet by mouth daily at bedtime. dox (more content not included)... [facility] 06-06-2024 History of Present illness Narrative Chief Complaint Patient presents with: 6 Month Exam HPI Bianca Delarosa is a 48 year old male who presents here today for Above Complaints.. Patient presents for routine follow up. Patient reports feeling generally fatigued but has no other complaints. Past medical history, appointments, medications, allergies reviewed. Previous Medical History PAST MEDICAL HISTORY 09/24/2023: Acute hypoxemic respiratory failure due to COVID-19 ([facility]) 03/31/2014: Agitation 03/31/2014: Allergic rhinitis 03/31/2014: Allergy-induced asthma Comment: Mild intermitant 12/07/2022: Attention 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 Comment: Substance agreement signed 12/2022, Tox screen done 12/202209/26/2018: Current use of proton pump inhibitor 01/27/2017: Diabetic eye exam ([facility]) Comment: Last eye exam: 03/05/2019 03/31/2014: Diverticulosis 03/31/2014: Dyslipidemia Comment: Low HDL, High Trigs 03/31/2014: Elevated antinuclear antibody (JALEEL) level 03/31/2014: Family history of malignant neoplasm of gastrointestinal tract 06/22/2020: ISABELLA (generalized anxiety disorder) 09/26/2018: GERD without esophagitis 03/31/2014: Hiatal hernia 09/23/2023: History of COVID-19 Comment: 2021, 09/202303/31/2014: Hx of colonic polyp Comment: Needs next colonoscopy 08/202211/16/2019: Lump Comment: benign left palm 09/26/2018: Major depressive disorder with single episode, in partial remission ([facility]) 09/11/2015: Migraine without aura and without status migrainosus, not intractable 03/31/2014: Mood disorder ([facility]) 02/27/2018: Multiple thyroid nodules Comment: Seen Dr. Lazaro 03/201802/27/2018: Multiple thyroid nodules Comment: US 03/2020 per radiology no further f/u needed.. All benign Biopsy 03/[address] Lazaro. Benign. 10/21/2022: Obesity, Class II, BMI 35-39.9 01/27/2017: Obstructive sleep apnea syndrome Comment: On CPAP 03/25/2013: Other joint derangement, not elsewhere classified, lower leg 07/28/2020: Primary insomnia 04/20/2021: QT prolongation Comment: Seen [facility] 04/19/2021: Retsof to be benign and related to anti-depressants. No changes needed. 03/31/2014: TMJ (temporomandibular joint disorder) Comment: Right side 01/19/2017: Type 2 diabetes mellitus without complication, without long-term current use of insulin ([facility]) 12/17/2014: Well adult exam Comment: Last done:11/16/2019 Previous Surgical History PAST SURGICAL HISTORY 2004: APPENDECTOMY HX 04/2021: ARTHROTOMY W/MENISCUS REPAIR KNEE; Right 06/2012: COLONOSCOPY Comment: Dr. Corrigan +polyp, repeat 5 yrs 08/30/2022: COLONOSCOPY Comment: repeat in 5 years 08/16/2017: COLONOSCOPY FLX DX W/COLLJ SPEC WHEN PFRMD Comment: Colonoscopy, repeat 5 yrs, Dr. Bliss 2008: PAST SURGICAL HISTORY OF Comment: benign cysts: 1 from head and 2 from neck 1979: TONSILLECTOMY & ADENOIDECTOMY AGE 11/> No date: TONSILLECTOMY HX Family History FAMILY HISTORY Problem Relation Age of Onset Colon Cancer Father 52 Coronary Artery Disease Father Coronary Artery Disease Mother 60's Hypertension Mother No Known Problems Brother No Known Problems Brother No Known Problems Brother Coronary Artery Disease Maternal Grandmother 60's Stroke Maternal Grandfather Colon Cancer Paternal Uncle 49 Alzheimer's Disease No Family History Prostate Cancer No Family History Breast Cancer No Family History Hyperlipidemia No Family History Kidney Disease No Family History Seizures No Family History Thyroid No Family History No Ocular Disease No Family History Patient Allergies ALLERGIES Allergen Reactions Topamax [Topiramate] Mental Status Change Unable to remember anything Celexa [Citalopram * Other: See Comments uneffective Effexor [Venlafaxin* Other: See Comments Sexual side affect Reglan [Metoclopram* Unknown Zoloft [Sertraline * Other: See Comments drowsy Current Medications Current Outpatient Medications on File Prior to Visit Medication Sig methylphenidate CD (METADATE CD) 10 mg biphasic capsule Take 1 capsule by mouth once daily for 30 days. TRESIBA FLEXTOUCH U-100 100 unit/mL (3 mL) injection pen Inject 60 units subcutaneous daily at bedtime. Dispense 60 mL for 90 day supply. HUMALOG KWIKPEN INSULIN 100 unit/mL Inject subcutaneously 20 units breakfast, 20 units lunch, 20 units dinner plus sliding scale up to 82 units daily. Dispense 75 mL for a 90 day supply. atorvastatin (LIPITOR) 40 mg tablet Take 1 tablet by mouth once daily. Fenofibrate (LOFIBRA) 54 mg tablet Take 1 tablet by mouth once daily. busPIRone (BUSPAR) 15 mg tablet Take one tab by mouth twice a day. DULoxetine (CYMBALTA) 60 mg capsule Take 1 capsule by mouth once daily. OLANZapine (ZYPREXA) 5 mg tablet Take 1 tablet by mouth daily at bedtime. doxepin capsule 10 mg Take 1 capsule by mouth daily at bedtime. esomeprazole (NEXIUM) 40 mg capsule Take 1 capsule by mouth once daily. Insulin Wykoff, Disposable, (DROPLET PEN NEEDLE) 31 gauge x 3/16 Use 4 PEN NEEDLES to inject MEDICATION subcutaneously daily metFORMIN (GLUCOPHAGE) 500 mg tablet Take 2 tablets by mouth two times a day with meals. Blood-Glucose Sensor (FREESTYLE EVERT 3 SENSOR) agnes Use one sensor every 14 day, IDDM, E11.9 zonisamide (ZONEGRAN) 25 mg capsule Take 1 capsule by mouth once daily. CPAP AUTO PAP 5-20 cmH20, CHIN STRAP, heated HUMIDITY, mask of patient's choice. LIFETIME SUPPLIES. SD Card. Download to [employer]. multivitamin tablet Take 1 tablet by mouth once daily. No current facility-administered medications on file prior to visit. Social History Social History Tobacco Use Smoking status: Never Smokeless tobacco: Never Vaping Use Vaping status: Never Used Substance Use Topics Alcohol use: Yes Comment: Rarely Drug use: No Review of Symptoms REVIEW OF SYSTEMS SEE HPI EXAM: BP 116/80 Pulse 83 Resp 14 Wt 135.6 kg (299 lb) BMI 38.37 kg/m General Appearance: Well appearing, alert, in no acute distress, well-hydrated, well nourished.. Lungs: Lungs clear to auscultation. No wheezing, rhonchi, rales.. Heart: RRR without murmur, gallop, or rubs. No ectopy. Peripheral Pulses: Normal. Health Maintenance List Diabetic Foot Exam due on 07/07/2024 Influenza Vaccine(1) due on 06/09/2024 Urine Albumin:Creatinine Ratio due on 08/11/2024 HbA1C due on 08/21/2024 Dilated Retinal Exam due on 02/22/2025 LDL Cholesterol due on 05/21/2025 Annual PCP Team Chronic Disease Visit due on 05/21/2025 Colorectal Cancer Screening due on 08/30/2027 DTaP,Tdap,Td Vaccine(3 - Td or Tdap) due on 04/13/2031 Hepatitis B Vaccine Completed Covid-19 Vaccine Completed Pneumococcal Vaccine Completed Spirometry Discontinued Hepatitis C Screening Discontinued HIV Screening Discontinued Data reviewed Latest Ref Rng 05/21/2024 WBC 3.70 - 11.00 k/uL 10.44 RBC 4.20 - 6.00 m/uL 4.99 Hemoglobin 13.0 - 17.0 g/dL 15.3 Hematocrit 39.0 - 51.0 % 44.8 MCV 80.0 - 100.0 fL 89.8 MCH 26.0 - 34.0 pg 30.7 MCHC 30.5 - 36.0 g/dL 34.2 RDW-CV 11.5 - 15.0 % 11.7 Platelet Count 150 - 400 k/uL 254 MPV 9.0 - 12.7 fL 12.9 (H) Neut% % 61.2 Abs Neut (ANC) 1.45 - 7.50 k/uL 6.39 Lymph% % 31.6 Abs Lymph 1.00 - 4.00 k/uL 3.30 Tensas% % 4.7 Abs Tensas <0.87 k/uL 0.49 Eosin% % 1.6 Abs Eosin <0.46 k/uL 0.17 Baso% % 0.6 Abs Baso <0.11 k/uL 0.06 Immature Gran % % 0.3 IMMATURE GRANS (ABS) <0.10 k/uL 0.03 NRBC /100 WBC 0.0 Absolute nRBC <0.01 k/uL <0.01 DTYPE Auto Protein, Total 6.3 - 8.0 g/dL 6.7 Albumin 3.9 - 4.9 g/dL 4.3 Calcium 8.5 - 10.2 mg/dL 9.4 Bilirubin, Total 0.2 - 1.3 mg/dL 0.3 Alkaline Phosphatase 38 - 113 U/L 168 (H) AST 14 - 40 U/L 36 ALT 10 - 54 U/L 24 Glucose 74 - 99 mg/dL 361 (H) BUN 9 - 24 mg/dL 9 Creatinine 0.73 - 1.22 mg/dL 0.73 Sodium 136 - 144 mmol/L 133 (L) Potassium 3.7 - 5.1 mmol/L 4.3 Chloride 98 - 107 mmol/L 98 CO2 22 - 30 mmol/L 22 Anion Gap 8 - 15 mmol/L 13 eGFR >=60 mL/min/1.73m 112 Total Cholesterol, Nonfasting <200 mg/dL 213 (H) Triglycerides, Nonfasting <150 mg/dL 1,046 (H) HDL Cholesterol, Nonfasting >39 mg/dL 24 (L) LDL Cholesterol, Nonfasting -- Non HDL Cholesterol, Nonfasting <130 mg/dL 189 (H) VLDL Cholesterol, Nonfasting -- Total Chol/HDL Ratio, Nonfasting <5.10 mg/dL 8.88 (H) LDL/HDL Ratio, Nonfasting -- Hemoglobin A1C 4.3 - 5.6 % 11.9 (H) Estimated Average Glucose mg/dL 295 TSH 0.270 - 4.200 mIU/L 1.330 ASSESSMENT/PLAN: 1. Dyslipidemia - ICD9: 272.4, ICD10: E78.5 (primary diagnosis) - Uncontrolled - Increase atorvastatin (Lipitor) - Counseled on healthy diet and regular exercise - ATORVASTATIN 80 MG TABLET - LIPID PANEL, NONFASTING - LIPID PANEL, NONFASTING 2. Type 2 diabetes mellitus without complication, without long-term current use of insulin (HCC) - ICD9: 250.00, ICD10: E11.9 - Uncontrolled - Counseled on healthy diet and regular exercise - Discussed need for and benefit of weight loss. BMI 38.37 kg/(m^2) - Labs sent to endocrinology for follow up - HEMOGLOBIN A1C - COMPREHENSIVE METABOLIC PANEL - URINALYSIS, WITH MICROSCOPIC - HEMOGLOBIN A1C 3. Multiple thyroid nodules - ICD9: 241.1, ICD10: E04.2 - THYROID STIMULATING HORMONE 4. Medication management - ICD9: V58.69, ICD10: Z79.899 - VITAMIN B12 - MAGNESIUM 5. GERD without esophagitis - ICD9: 530.81, ICD10: K21.9 - Continue treatment with Nexium 40 mg QD - COMPLETE BLOOD COUNT AND DIFFERENTIAL Dominik Kelley APRN.CIRCUIT COURT CLERK documented in this encounter [facility] 05-28-2024 Telephone encounter Note Pt notified and verbalized understanding Chuy Jackson MA [facility] 05-28-2024 Miscellaneous Notes Pt notified and verbalized understanding Chuy Jackson MA Called and left a voicemail for the Patient to call back and ask for a nurse to receive the providers message. Emma Martínez RN Please let patient know their xray is normal. documented in this encounter [facility] 05-27-2024 Telephone encounter Note Called and left a voicemail for the Patient to call back and ask for a nurse to receive the providers message. Emma Martínez RN [facility] 05-27-2024 Telephone encounter Note Please let patient know their xray is normal. [facility] Work Phone: 05-21-2024 History of Present illness Narrative Radiology Service Progress Note PATIENT NAME: Bianca Delarosa DATE OF SERVICE: May 21, 2024 TIME: 4:16 PM PATIENT IDENTITY VERIFICATION COMPLETED USING TWO (2) IDENTIFIERS: Name and Date of confirmed by patient verbally. FALL SCREENING: Has the patient had 2 falls in the last year or 1 fall with injury or currently using an Ambulatory Assistive Device (Walker, Cane, Wheelchair, Crutches, etc.)? No PATIENT GENDER DATA: Male PATIENT RELEVANT IMPLANT DATA REVIEWED: Yes PATIENT PRESENTS WITH AN IMPLANTABLE OR ATTACHED CASINO BANKER: No RADIOLOGY DEPARTMENT: General X-ray: Exam(s) Completed: Upper Extremity X-Ray(s): Shoulder, AP / TRUE AP right Scapular Y view PERIPHERAL IV DATA: Not applicable SIGNED BY: MISSAEL Kirk) May 21, 2024 4:16 PM documented in this encounter [facility] 05-21-2024 Note HNO ID: [id number] Author: LINDY NARAYAN RT(R) Service: ? Author Type: Operations Logistics Analyst Type: Progress Notes Filed: 05/21/2024 16:16 Note Text: Radiology Service Progress Note PATIENT NAME: Bianca Delarosa DATE OF SERVICE: May 21, 2024 TIME: 4:16 PM PATIENT IDENTITY VERIFICATION COMPLETED USING TWO (2) IDENTIFIERS: Name and Date of confirmed by patient verbally. FALL SCREENING: Has the patient had 2 falls in the last year or 1 fall with injury or currently using an Ambulatory Assistive Device (Walker, Cane, Wheelchair, Crutches, etc.)? No PATIENT GENDER DATA: Male PATIENT RELEVANT IMPLANT DATA REVIEWED: Yes PATIENT PRESENTS WITH AN IMPLANTABLE OR ATTACHED CASINO BANKER: No RADIOLOGY DEPARTMENT: General X-ray: Exam(s) Completed: Upper Extremity X-Ray(s): Shoulder, AP / TRUE AP right Scapular Y view PERIPHERAL IV DATA: Not applicable SIGNED BY: Lindy Narayan, RT(R) May 21, 2024 4:16 PM [facility] 05-21-2024 Note HNO ID: [id number] Author: DOMINIK KELLEY APRN.CIRCUIT COURT CLERK Service: ? Author Type: Nurse Practitioner Type: Progress Notes Filed: 05/21/2024 15:57 Note Text: Chief Complaint Patient presents with: Arm Pain Pain (Shoulder Pain) HPI Bianca Delarosa is a 48 year old male who presents here today for Above Complaints.. Patient presents for right shoulder pain x3 week. Patient reports pain when lifting or when extending behind him. Past medical history, appointments, medications, allergies reviewed. Previous Medical History PAST MEDICAL HISTORY 09/24/2023: Acute hypoxemic respiratory failure due to COVID-19 ([facility]) 03/31/2014: Agitation 03/31/2014: Allergic rhinitis 03/31/2014: Allergy-induced asthma Comment: Mild intermitant 12/07/2022: Attention 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 Comment: Substance agreement signed 12/2022, Tox screen done 12/202209/26/2018: Current use of proton pump inhibitor 01/27/2017: Diabetic eye exam ([facility]) Comment: Last eye exam: 03/05/2019 03/31/2014: Diverticulosis 03/31/2014: Dyslipidemia Comment: Low HDL, High Trigs 03/31/2014: Elevated antinuclear antibody (JALEEL) level 03/31/2014: Family history of malignant neoplasm of gastrointestinal tract 06/22/2020: ISABELLA (generalized anxiety disorder) 09/26/2018: GERD without esophagitis 03/31/2014: Hiatal hernia 09/23/2023: History of COVID-19 Comment: 2021, 09/202303/31/2014: Hx of colonic polyp Comment: Needs next colonoscopy 08/202211/16/2019: Lump Comment: benign left palm 09/26/2018: Major depressive disorder with single episode, in partial remission ([facility]) 09/11/2015: Migraine without aura and without status migrainosus, not intractable 03/31/2014: Mood disorder ([facility]) 02/27/2018: Multiple thyroid nodules Comment: Seen Dr. Lazaro 03/201802/27/2018: Multiple thyroid nodules Comment: US 03/2020 per radiology no further f/u needed.. All benign Biopsy 03/2018 renee Lazaro. Benign. 10/21/2022: Obesity, Class II, BMI 35-39.9 01/27/2017: Obstructive sleep apnea syndrome Comment: On CPAP 03/25/2013: Other joint derangement, not elsewhere classified, lower leg 07/28/2020: Primary insomnia 04/20/2021: QT prolongation Comment: Seen [facility] 04/19/2021: Retsof to be benign and related to anti-depressants. No changes needed. 03/31/2014: TMJ (temporomandibular joint disorder) Comment: Right side 01/19/2017: Type 2 diabetes mellitus without complication, without long-term current use of insulin ([facility]) 12/17/2014: Well adult exam Comment: Last done:11/16/2019 Previous Surgical History PAST SURGICAL HISTORY 2004: APPENDECTOMY HX 04/2021: ARTHROTOMY W/MENISCUS REPAIR KNEE; Right 06/2012: COLONOSCOPY Comment: Dr. Corrigan +polyp, repeat 5 yrs 08/30/2022: COLONOSCOPY Comment: repeat in 5 years 08/16/2017: COLONOSCOPY FLX DX W/COLLJ SPEC WHEN PFRMD Comment: Colonoscopy, repeat 5 yrs, Dr. Bliss 2009: PAST SURGICAL HISTORY OF Comment: benign cysts: 1 from head and 2 from neck 1979: TONSILLECTOMY AND ADENOIDECTOMY AGE 11/> No date: TONSILLECTOMY HX Family History FAMILY HISTORY Problem Relation Age of Onset Colon Cancer Father 52 Coronary Artery Disease Father Coronary Artery Disease Mother 60's Hypertension Mother No Known Problems Brother No Known Problems Brother No Known Problems Brother Coronary Artery Disease Maternal Grandmother 60's Stroke Maternal Grandfather Colon Cancer Paternal Uncle 49 Alzheimer's Disease No Family History Prostate Cancer No Family History Breast Cancer No Family History Hyperlipidemia No Family History Kidney Disease No Family History Seizures No Family History Thyroid No Family History No Ocular Disease No Family History Patient Allergies ALLERGIES Allergen Reactions Topamax [Topiramate] Mental Status Change Unable to remember anything Celexa [Citalopram * Other: See Comments uneffective Effexor [Venlafaxin* Other: See Comments Sexual side affect Reglan [Metoclopram* Unknown Zoloft [Sertraline * Other: See Comments drowsy Current Medications Current Outpatient Medications on File Prior to Visit Medication Sig methylphenidate CD (METADATE CD) 10 mg biphasic capsule Take 1 capsule by mouth once daily for 30 days. TRESIBA FLEXTOUCH U-100 100 unit/mL (3 mL) injection pen Inject 60 units subcutaneous daily at bedtime. Dispense 60 mL for 90 day supply. HUMALOG KWIKPEN INSULIN 100 unit/mL Inject subcutaneously 20 units breakfast, 20 units lunch, 20 units dinner plus sliding scale up to 82 units daily. Dispense 75 mL for a 90 day supply. atorvastatin (LIPITOR) 40 mg tablet Take 1 tablet by mouth once daily. Fenofibrate (LOFIBRA) 54 mg tablet Take 1 tablet by mouth once daily. busPIRone (BUSPAR) 15 mg tablet Take one tab by mouth twice a day. DULoxetine (CYMBALTA) 60 mg capsule Take 1 capsule by mouth once daily. OLANZapine (ZYPREXA) 5 mg tablet Take 1 tablet by mouth da (more content not included)... [facility] 05-21-2024 History of Present illness Narrative Chief Complaint Patient presents with: Arm Pain Pain (Shoulder Pain) HPI Bianca Delarosa is a 48 year old male who presents here today for Above Complaints.. Patient presents for right shoulder pain x3 week. Patient reports pain when lifting or when extending behind him. Past medical history, appointments, medications, allergies reviewed. Previous Medical History PAST MEDICAL HISTORY 09/24/2023: Acute hypoxemic respiratory failure due to COVID-19 (HCC) 03/31/2014: Agitation 03/31/2014: Allergic rhinitis 03/31/2014: Allergy-induced asthma Comment: Mild intermitant 12/07/2022: Attention 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 Comment: Substance agreement signed 12/2022, Tox screen done 12/202209/26/2018: Current use of proton pump inhibitor 01/27/2017: Diabetic eye exam ([facility]) Comment: Last eye exam: 03/05/2019 03/31/2014: Diverticulosis 03/31/2014: Dyslipidemia Comment: Low HDL, High Trigs 03/31/2014: Elevated antinuclear antibody (JALEEL) level 03/31/2014: Family history of malignant neoplasm of gastrointestinal tract 06/22/2020: ISABELLA (generalized anxiety disorder) 09/26/2018: GERD without esophagitis 03/31/2014: Hiatal hernia 09/23/2023: History of COVID-19 Comment: 2021, 09/202303/31/2014: Hx of colonic polyp Comment: Needs next colonoscopy 08/202211/16/2019: Lump Comment: benign left palm 09/26/2018: Major depressive disorder with single episode, in partial remission ([facility]) 09/11/2015: Migraine without aura and without status migrainosus, not intractable 03/31/2014: Mood disorder ([facility]) 02/27/2018: Multiple thyroid nodules Comment: Seen Dr. Lazaro 03/201802/27/2018: Multiple thyroid nodules Comment: US 03/2020 per radiology no further f/u needed.. All benign Biopsy 03/[address] Lazaro. Benign. 10/21/2022: Obesity, Class II, BMI 35-39.9 01/27/2017: Obstructive sleep apnea syndrome Comment: On CPAP 03/25/2013: Other joint derangement, not elsewhere classified, lower leg 07/28/2020: Primary insomnia 04/20/2021: QT prolongation Comment: Seen [facility] 04/19/2021: Retsof to be benign and related to anti-depressants. No changes needed. 03/31/2014: TMJ (temporomandibular joint disorder) Comment: Right side 01/19/2017: Type 2 diabetes mellitus without complication, without long-term current use of insulin ([facility]) 12/17/2014: Well adult exam Comment: Last done:11/16/2019 Previous Surgical History PAST SURGICAL HISTORY 2004: APPENDECTOMY HX 04/2021: ARTHROTOMY W/MENISCUS REPAIR KNEE; Right 06/2012: COLONOSCOPY Comment: Dr. Corrigan +polyp, repeat 5 yrs 08/30/2022: COLONOSCOPY Comment: repeat in 5 years 08/16/2017: COLONOSCOPY FLX DX W/COLLJ SPEC WHEN PFRMD Comment: Colonoscopy, repeat 5 yrs, Dr. Bliss 2008: PAST SURGICAL HISTORY OF Comment: benign cysts: 1 from head and 2 from neck 1979: TONSILLECTOMY & ADENOIDECTOMY AGE 11/> No date: TONSILLECTOMY HX Family History FAMILY HISTORY Problem Relation Age of Onset Colon Cancer Father 52 Coronary Artery Disease Father Coronary Artery Disease Mother 60's Hypertension Mother No Known Problems Brother No Known Problems Brother No Known Problems Brother Coronary Artery Disease Maternal Grandmother 60's Stroke Maternal Grandfather Colon Cancer Paternal Uncle 49 Alzheimer's Disease No Family History Prostate Cancer No Family History Breast Cancer No Family History Hyperlipidemia No Family History Kidney Disease No Family History Seizures No Family History Thyroid No Family History No Ocular Disease No Family History Patient Allergies ALLERGIES Allergen Reactions Topamax [Topiramate] Mental Status Change Unable to remember anything Celexa [Citalopram * Other: See Comments uneffective Effexor [Venlafaxin* Other: See Comments Sexual side affect Reglan [Metoclopram* Unknown Zoloft [Sertraline * Other: See Comments drowsy Current Medications Current Outpatient Medications on File Prior to Visit Medication Sig methylphenidate CD (METADATE CD) 10 mg biphasic capsule Take 1 capsule by mouth once daily for 30 days. TRESIBA FLEXTOUCH U-100 100 unit/mL (3 mL) injection pen Inject 60 units subcutaneous daily at bedtime. Dispense 60 mL for 90 day supply. HUMALOG KWIKPEN INSULIN 100 unit/mL Inject subcutaneously 20 units breakfast, 20 units lunch, 20 units dinner plus sliding scale up to 82 units daily. Dispense 75 mL for a 90 day supply. atorvastatin (LIPITOR) 40 mg tablet Take 1 tablet by mouth once daily. Fenofibrate (LOFIBRA) 54 mg tablet Take 1 tablet by mouth once daily. busPIRone (BUSPAR) 15 mg tablet Take one tab by mouth twice a day. DULoxetine (CYMBALTA) 60 mg capsule Take 1 capsule by mouth once daily. OLANZapine (ZYPREXA) 5 mg tablet Take 1 tablet by mouth daily at bedtime. doxepin capsule 10 mg Take 1 capsule by mouth daily at bedtime. esomeprazole (NEXIUM) 40 mg capsule Take 1 capsule by mouth once daily. Insulin Wykoff, Disposable, (DROPLET PEN NEEDLE) 31 gauge x 3/16 Use 4 PEN NEEDLES to inject MEDICATION subcutaneously daily metFORMIN (GLUCOPHAGE) 500 mg tablet Take 2 tablets by mouth two times a day with meals. Blood-Glucose Sensor (FREESTYLE EVERT 3 SENSOR) agnes Use one sensor every 14 day, IDDM, E11.9 zonisamide (ZONEGRAN) 25 mg capsule Take 1 capsule by mouth once daily. CPAP AUTO PAP 5-20 cmH20, CHIN STRAP, heated HUMIDITY, mask of patient's choice. LIFETIME SUPPLIES. SD Card. Download to [employer]. multivitamin tablet Take 1 tablet by mouth once daily. No current facility-administered medications on file prior to visit. Social History Social History Tobacco Use Smoking status: Never Smokeless tobacco: Never Vaping Use Vaping Use: Never used Substance Use Topics Alcohol use: Yes Comment: Rarely Drug use: No Review of Symptoms REVIEW OF SYSTEMS SEE HPI EXAM: BP 150/98 Pulse 105 Resp 14 Wt 134.7 kg (297 lb) BMI 38.12 kg/m General Appearance: Well appearing, alert, in no acute distress, well-hydrated, well nourished.. Extremities: Positive findings: joint location: on right shoulder pain, painful movement, loss of ROM, and stiffness. Health Maintenance List HbA1C due on 04/17/2024 Influenza Vaccine(1) due on 06/09/2024 Diabetic Foot Exam due on 07/07/2024 Urine Albumin:Creatinine Ratio due on 08/11/2024 LDL Cholesterol due on 12/06/2024 Annual PCP Team Chronic Disease Visit due on 12/06/2024 Dilated Retinal Exam due on 02/22/2025 Colorectal Cancer Screening due on 08/30/2027 DTaP,Tdap,Td Vaccine(3 - Td or Tdap) due on 04/13/2031 Hepatitis B Vaccine Completed Covid-19 Vaccine Completed Pneumococcal Vaccine Completed Spirometry Discontinued Hepatitis C Screening Discontinued HIV Screening Discontinued ASSESSMENT/PLAN: 1. Acute pain of right shoulder - ICD9: 719.41, ICD10: M25.511 - XR SHOULDER GENERAL 3V OR MORE AP/TRUE AP/OTHER RIGHT - CONSULT TO PHYSICAL THERAPY Dominik Kelley APRN.CIRCUIT COURT CLERK documented in this encounter [facility] 05-21-2024 Telephone encounter Note Patient calls for arm/shoulder pain with movement/stretching arm/sometimes with laying directly on the arm. No current pain. Nurse triage completed. Protocol recommends see provider within 4 hours. Patient able to come in for 340 pm appt. Scheduled per request. Care advice reviewed. Patient verbalizes understanding. Reason for Disposition [1] Arm pains with exertion (e.g., walking) AND [2] pain goes away on resting AND [3] not present now Answer Assessment - Initial Assessment Questions 1. ONSET: 3 weeks ago. Patient reports upper arm/shoulder pain with movement or stretching. Sometimes with laying directly on the area. Not currently having the pain. 2. LOCATION: Right upper arm into shoulder 3. PAIN: - MODERATE (4-7): Interferes with normal activities (e.g., work or school) or awakens from sleep. 4. WORK OR EXERCISE: No recent work or exercise that involved this part of the body that patient can think of. 5. CAUSE: Patient is not really certain. 6. OTHER SYMPTOMS: Pain extends a little into neck. No swelling, rash, fever, numbness, weakness. Protocols used: Arm [id number] [facility] 05-21-2024 Miscellaneous Notes Patient calls for arm/shoulder pain with movement/stretching arm/sometimes with laying directly on the arm. No current pain. Nurse triage completed. Protocol recommends see provider within 4 hours. Patient able to come in for 340 pm appt. Scheduled per request. Care advice reviewed. Patient verbalizes understanding. Reason for Disposition [1] Arm pains with exertion (e.g., walking) AND [2] pain goes away on resting AND [3] not present now Answer Assessment - Initial Assessment Questions 1. ONSET: 3 weeks ago. Patient reports upper arm/shoulder pain with movement or stretching. Sometimes with laying directly on the area. Not currently having the pain. 2. LOCATION: Right upper arm into shoulder 3. PAIN: - MODERATE (4-7): Interferes with normal activities (e.g., work or school) or awakens from sleep. 4. WORK OR EXERCISE: No recent work or exercise that involved this part of the body that patient can think of. 5. CAUSE: Patient is not really certain. 6. OTHER SYMPTOMS: Pain extends a little into neck. No swelling, rash, fever, numbness, weakness. Protocols used: Arm [id number] TC patient, left message for patient to call back and speak with a triage nurse regarding patient's symptoms. Patient had requested appointment for pain in right arm and shoulder/tired all the time. Juhi Murillo RN documented in this encounter [facility] 05-21-2024 Telephone encounter Note See Nurse triage note; TC patient, left message for patient to call back and speak with a triage nurse regarding patient's symptoms. Patient had requested appointment for pain in right arm and shoulder/tired all the time. Juhi Murillo RN [facility] 05-21-2024 Miscellaneous Notes See Nurse triage note; TC patient, left message for patient to call back and speak with a triage nurse regarding patient's symptoms. Patient had requested appointment for pain in right arm and shoulder/tired all the time. Juhi Murillo RN documented in this encounter [facility] 05-21-2024 Telephone encounter Note TC patient, left message for patient to call back and speak with a triage nurse regarding patient's symptoms. Patient had requested appointment for pain in right arm and shoulder/tired all the time. Juhi Murillo RN [facility] 05-13-2024 Telephone encounter Note The following approved medication requests have been transmitted electronically. Requested Prescriptions Signed Prescriptions Disp Refills methylphenidate CD (METADATE CD) 10 mg biphasic capsule 30 capsule 0 Sig: Take 1 capsule by mouth once daily for 30 days. Authorizing Provider: HUMBERTO JACKSON MD PDMP website checked and validated. All prescriptions have been APPROPRIATELY filled. No suspicious activity was identified. 05/13/2024 by Humberto Jackson MD [facility] 08-05-2024 Miscellaneous Notes The following approved medication requests have been transmitted electronically. Requested Prescriptions Signed Prescriptions Disp Refills methylphenidate CD (METADATE CD) 10 mg biphasic capsule 30 capsule 0 Sig: Take 1 capsule by mouth once daily for 30 days. Authorizing Provider: HUMBERTO JACKSON MD PDMP website checked and validated. All prescriptions have been APPROPRIATELY filled. No suspicious activity was identified. 05/13/2024 by Humberto Jackson MD Prescription Refill Information The patient has been identified by name and date of : Yes Caregiver verified no other encounters exist for this prescription request: Yes Caregiver confirmed with patient/requestor that no other refills are due, in the near future, with this provider at this time: Yes The last office visit in the department: 11/2023 Does the patient have a future office visit with this provider/department: Yes 05/2024 Requested Prescriptions Pending Prescriptions Disp Refills methylphenidate CD (METADATE CD) 10 mg biphasic capsule 30 capsule 0 Sig: Take 1 capsule by mouth once daily for 30 days. Tam Daugherty MA May 13, 2024 12:43 PM documented in this encounter [facility] 05-13-2024 Telephone encounter Note Prescription Refill Information The patient has been identified by name and date of : Yes Caregiver verified no other encounters exist for this prescription request: Yes Caregiver confirmed with patient/requestor that no other refills are due, in the near future, with this provider at this time: Yes The last office visit in the department: 11/2023 Does the patient have a future office visit with this provider/department: Yes 05/2024 Requested Prescriptions Pending Prescriptions Disp Refills methylphenidate CD (METADATE CD) 10 mg biphasic capsule 30 capsule 0 Sig: Take 1 capsule by mouth once daily for 30 days. Tam Daugherty MA May 13, 2024 12:[address] [facility] 03-12-2024 Note HNO ID: [id number] Author: SHILOH PRADHAN LPN Service: ? Author Type: LICENSED NURSE Type: Progress Notes Filed: 03/12/2024 18:39 Note Text: Scan on 03/12/2024 2:26 PM by Carmenza Daley PA-C: Miscellaneous Procedures [facility] 03-12-2024 History of Present illness Narrative Scan on 03/12/2024 2:26 PM by Carmenza Daley PA-C: Miscellaneous Procedures documented in this encounter [facility] 03-11-2024 Note HNO ID: [id number] Author: TAM DAUGHERTY MA Service: ? Author Type: Unit Clerk Type: Progress Notes Filed: 03/11/2024 15:56 Note Text: Scan on 03/10/2024 2:56 PM by Carmenza Daley PA-C: Miscellaneous Procedures Scan on 03/10/2024 2:58 PM by Carmenza Daley PA-C: Miscellaneous Procedures Scan on 03/10/2024 7:39 PM by Carmenza Daley PA-C: Miscellaneous Procedures Tam Daugherty MA [facility] 03-11-2024 History of Present illness Narrative Scan on 03/10/2024 2:56 PM by Carmenza Daley PA-C: Miscellaneous Procedures Scan on 03/10/2024 2:58 PM by Carmenza Daley PA-C: Miscellaneous Procedures Scan on 03/10/2024 7:39 PM by Carmenza Daley PA-C: Miscellaneous Procedures Tam Daugherty MA documented in this encounter [facility] 02-28-2024 Telephone encounter Note Tessielo Mr. Delarosa Your molecular testing is benign and I advise repeat the ultrasound with your PCP in one year. Jacob Prado Junior, MD [facility] Work Phone: 02-28-2024 Miscellaneous Notes Tessielo Mr. Delarosa Your molecular testing is benign and I advise repeat the ultrasound with your PCP in one year. Jacob Prado Junior, MD documented in this encounter [facility] 02-28-2024 Telephone encounter Note Scan on 02/27/2024 4:49 PM by Provider, External, PA-C: Afirma Report 02/27/24 Received fax today with patients Afirma results, routed to Dr. Prado for review. [facility] 02-28-2024 Miscellaneous Notes Scan on 02/27/2024 4:49 PM by Provider, External, PA-C: Afirma Report 02/27/24 Received fax today with patients Afirma results, routed to Dr. Prado for review. documented in this encounter [facility] 02-24-2024 Telephone encounter Note The following approved medication requests have been transmitted electronically. Requested Prescriptions Signed Prescriptions Disp Refills methylphenidate CD (METADATE CD) 10 mg biphasic capsule 30 capsule 0 Sig: Take 1 capsule by mouth once daily for 30 days. Authorizing Provider: HUMBERTO JACKSON MD PDMP website checked and validated. All prescriptions have been APPROPRIATELY filled. No suspicious activity was identified. 02/24/2024 by Humberto Jackson MD [facility] 02-24-2024 Miscellaneous Notes The following approved medication requests have been transmitted electronically. Requested Prescriptions Signed Prescriptions Disp Refills methylphenidate CD (METADATE CD) 10 mg biphasic capsule 30 capsule 0 Sig: Take 1 capsule by mouth once daily for 30 days. Authorizing Provider: HUMBERTO JACKSON MD PDMP website checked and validated. All prescriptions have been APPROPRIATELY filled. No suspicious activity was identified. 02/24/2024 by Humberto Jackson MD Patient has been identified by name and date of : Yes, Provider Humberto Jackson MD Date February 24, 2024 Time 9:20 AM Patient phones for refill(s): Requested Prescriptions Pending Prescriptions Disp Refills methylphenidate CD (METADATE CD) 10 mg biphasic capsule 30 capsule 0 Sig: Take 1 capsule by mouth once daily for 30 days. Date of last office visit in primary care: 12/06/2023 Date of next office visit in primary care: 06/06/2024 Please advise. Thank you. Tia Ibarra MA. documented in this encounter [facility] 02-24-2024 Telephone encounter Note Patient has been identified by name and date of : Yes, Provider Humberto Jackson MD Date February 24, 2024 Time 9:20 AM Patient phones for refill(s): Requested Prescriptions Pending Prescriptions Disp Refills methylphenidate CD (METADATE CD) 10 mg biphasic capsule 30 capsule 0 Sig: Take 1 capsule by mouth once daily for 30 days. Date of last office visit in primary care: 12/06/2023 Date of next office visit in primary care: 06/06/2024 Please advise. Thank you. Tia Ibarra MA. [facility] 02-14-2024 Telephone encounter Note Called patient to discuss AFIRMA results. Nodule is benign and I recommend US in one year. Jacob Prado Junior, MD [facility] Work Phone: 02-14-2024 Miscellaneous Notes Called patient to discuss AFIRMA results. Nodule is benign and I recommend US in one year. Jacob Prado Junior, MD Afirma results from 01/31/24 received. File Link Scan on 02/12/2024 9:55 PM by ProviderCarmenza PA-C: Miscellaneous Lab Janett Velasco LPN documented in this encounter [facility] 02-13-2024 Telephone encounter Note Afirma results from 01/31/24 received. File Link Scan on 02/12/2024 9:55 PM by ProviderCarmenza PA-C: Miscellaneous Lab Janett Velasco LPN [facility] 01-31-2024 History of Present illness Narrative Jacob prado Jr, M.D. Department of Endocrine Surgery Endocrinology Metabolism [place] The [address], [place] [address] ENDOCRINE SURGERY NEW PATIENT VISIT NAME: Bianca Delarosa CLINIC NO: [id number] : 1975 History of Present Illness: Bianca Delarosa is a 48 year old male referred for evaluation of thyroid nodules. He is doing follow up since 2019 and this year presented with more than 20% growth in left thyroid nodule The patient has no neck complains. My findings and recommendations will be communicated by way of the shared medical record. ENDOCRINE SURGICAL HISTORY: New or established diagnosis: est Prior history of radiation treatment to the neck: no Known thyroid disease: no Known parathyroid disease: no Prior neck operations: no Family history of hypercalcemia: no Family history of thyroid cancer: no Family history of other endocrine tumors: no Pertinent medications (levothyroxine, blood thinners, calcium, diuretics, lithium, Sensipar, biotin): no REVIEW OF SYSTEMS: ENDOCRINE: See HPI PHYSICAL EXAM: CONSTITUTIONAL: Well appearing, alert, and oriented and appears euthyroid. NECK: skin over the anterior neck is smooth, no mass is visualized. Palpation revealed neck to be supple, thyroid gland is palpable and overall normal in size. No lymphadenopathy was palpated on either side of the neck. ULTRASOUND EXAMINATION: Ultrasound examination was performed in the office. Left lower nodule: hypoechoic, solid cystic, irregular margin measuring 1.5 x 1.1 x 1.5 cm No worrisome lymphadenopathy was appreciated in either central neck compartment or jugular chain. The risks, benefits and alternatives of the proposed procedure were discussed at length with the patient and/or the patient's family. All the patients questions and concerns were answered to the patient's satisfaction. After this, the patient agreed to proceed with the planned intervention and signed an inform consent. Risks -Bleeding -Infection -Damage to surrounding structures I performed a biopsy of the dominant thyroid nodule today. The patient understands the potential results of the biopsy range from non-diagnostic to intermediate to potential malignancy and the possible treatment algorithms that could follow, including repeating the biopsy or an operation. We will contact the patient to inform them of the results when they become available. UNIVERSAL PROTOCOL / SAFETY CHECKLIST Procedure to be performed: Consent was obtained for fine-needle aspiration of the left thyroid nodule. Under ultrasound-guidance, a 22-gauge needle was directed into the lesion and two passes were performed. The aspirates were affixed to slides, as well as, deposited in CytoLyt and sent to pathology. A portion of each aspirate was reserved for Afirma testing. The patient tolerated the procedure well. Sign in Communication: Completed Time Out: Team Confirms the Correct Patient, Correct Procedure, Correct Site and Site Marking, Correct Position (if applicable), Prep and Dry Time (if applicable). Time: N/A Affirmation of Time Out: YES Sign Out Discussion: Completed ASSESSMENT and PLAN: In summary, Bianca Saenz [place] has one nodule with FNA indication. Will discuss the results in 5-10 days. I appreciate being involved in the care of your patient, and please feel free to contact me should you have additional questions. Sincerely, Jacob prado Jr, M.D. Clinical Associate Endocrine Surgery [facility] documented in this encounter [facility] 01-24-2024 Miscellaneous Notes The following approved medication requests have been transmitted electronically. Requested Prescriptions Signed Prescriptions Disp Refills methylphenidate CD (METADATE CD) 10 mg biphasic capsule 30 capsule 0 Sig: Take 1 capsule by mouth once daily for 30 days. Authorizing Provider: HUMBERTO JACKSON MD PDMP website checked and validated. All prescriptions have been APPROPRIATELY filled. No suspicious activity was identified. 01/24/2024 by Humberto Jackson MD Patient has been identified by name and date of : Yes Patient phones for refill(s): Requested Prescriptions Pending Prescriptions Disp Refills methylphenidate CD (METADATE CD) 10 mg biphasic capsule 30 capsule 0 Sig: Take 1 capsule by mouth once daily for 30 days. Date of last office visit in primary care: 12/06/2023 Date of next office visit in primary care: 06/06/2024 Please advise. Thank you. Guzman Renteria LPN. documented in this encounter [facility] 01-24-2024 Miscellaneous Notes Unable to schedule with Endo Surgery. Transferred patient to the intake nurse per the EMQ at [phone] Please contact patient to schedule with Endocrine surgery due to increase growth of thyroid nodules. Thank you documented in this encounter [facility] 01-17-2024 Miscellaneous Notes Received a message to re-send for a 90 day supply. Requested Prescriptions Pending Prescriptions Disp Refills TRESIBA FLEXTOUCH U-100 100 unit/mL (3 mL) injection pen [Pharmacy Med Name: TRESIBA FLEXTOUCH 100 UNIT/ML] 60 mL 3 Sig: Inject 60 units subcutaneous daily at bedtime. Dispense 60 mL for 90 day supply. HUMALOG KWIKPEN INSULIN 100 unit/mL 75 mL 3 Sig: Inject subcutaneously 20 units breakfast, 20 units lunch, 20 units dinner plus sliding scale up to 82 units daily. Dispense 75 mL for a 90 day supply. Please review and advise. Aneta Calvin RN documented in this encounter [facility] 01-17-2024 Instructions Torres Monaco APRN.CIRCUIT COURT CLERK - 01/17/2024 8:18 AM EDT Continue metformin Tresiba 60 units daily at bedtime. Humalog: Breakfast 20 units Lunch 20 units Dinner 20 units If Blood Glucose (mg/dL) is < 150 Give 0 units 151-200 Give 2 units 201-250 Give 4 units 251-300 Give 6 units 301-350 Give 8 units >351 Give 10 units Message me in 2 wks to look at the evert Have thyroid ultrasound done Follow up in 3 months Torres Monaco, MSN, TAX ACCOUNTANT, MANAGER DISASTER RECOVERY-C, CDE Endocrinology [facility] Medical Office [facility]/[address] [place] [address] Fax: documented in this encounter [facility] 01-17-2024 History of Present illness Narrative Reason for Consultation: DM Type 2 Referring Physician: No referring provider defined for this encounter. HISTORY OF PRESENT ILLNESS; Mr. Delarosa is a 48 year old male presenting for follow up regarding DM Type 2. He was initially diagnosed with diabetes in 2019. He does not have a family history of diabetes mellitus in his family . 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 Changed to mixed insulin to alleviate the issue of needing insulin at work during lunch however his A1C is not at goal. Switched to basal/bolus last visit. States BG was looking better until his birthday in December and has not been able to get it under control since. Taking insulin properly and denies missing doses. He does skip the lunch dose of humalog on work days as he cannot take supplies into the care home but tries to consume a low carb meal. He is under the care of cardiology, cedrick. His current diabetes regimen is: Metformin 500 mg 2 tabs BID Tresiba 50 units HS Humalog 16 units TID meals plus SS If Blood Glucose (mg/dL) is < 150 Give 0 units 151-200 Give 2 units 201-250 Give 4 units 251-300 Give 6 units 301-350 Give 8 units >351 Give 10 units Previous DM medication: Jardiance--cost Ozempic-cost and stomach upset Mounjaro--cost Lantus --changed to mixed insulin Glimepiride--insulin Rybelsus--cost Humalog 75/25 Regarding symptoms of hyperglycemia, he is not experiencing polydipsia but denies polyuria, weight loss Exercise: limited due to torn meniscus Bianca is checking his blood glucose with Evert 3 He did does bring a logbook today for review: Evert download (01/03/24 to 01/16/24) In target 0% High 8% Very high 91% Low/very low 0% Avg glucose 329 GMI 11.2 BG is high all day. Rarely below 250 Hypoglycemia frequency: denies Hypoglycemia awareness: Yes Overall, the patient has no acute complaints at this time. Thyroid nodules: Last ultrasound 2019. Repeat ordered in June but not yet completed. TSH 1.740 on 12/06/23 PAST MEDICAL HISTORY Diagnosis Date Acute hypoxemic respiratory failure due to COVID-19 (HCC) 09/24/2023 Agitation 03/31/2014 Allergic rhinitis 03/31/2014 Allergy-induced asthma 03/31/2014 Mild intermitant Attention 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 12/07/2022 Substance agreement signed 12/2022, Tox screen done 12/2022 Current use of proton pump inhibitor 09/26/2018 Diabetic eye exam (HCC) 01/27/2017 Last eye exam: 03/05/2019 Diverticulosis 03/31/2014 Dyslipidemia 03/31/2014 Low HDL, High Trigs Elevated antinuclear antibody (JALEEL) level 03/31/2014 Family history of malignant neoplasm of gastrointestinal tract 03/31/2014 ISABELLA (generalized anxiety disorder) 06/22/2020 GERD without esophagitis 09/26/2018 Hiatal hernia 03/31/2014 History of COVID-19 09/23/20232021, 09/2023 Hx of colonic polyp 03/31/2014 Needs next colonoscopy 08/2022 Lump 11/16/2019 benign left palm Major depressive disorder with single episode, in partial remission ([facility]) 09/26/2018 Migraine without aura and without status migrainosus, not intractable 09/11/2015 Mood disorder ([facility]) 03/31/2014 Multiple thyroid nodules 02/27/[address] Lazaro 03/2018 Multiple thyroid nodules 02/27/2018 US 03/2020 per radiology no further f/u needed.. All benign Biopsy 03/[address] Lazaro. Benign. Obesity, Class II, BMI 35-39.9 10/21/2022 Obstructive sleep apnea syndrome 01/27/2017 On CPAP Other joint derangement, not elsewhere classified, lower leg 03/25/2013 Primary insomnia 07/28/2020 QT prolongation 04/20/[address] [facility] 04/19/2021: Retsof to be benign and related to anti-depressants. No changes needed. TMJ (temporomandibular joint disorder) 03/31/2014 Right side Type 2 diabetes mellitus without complication, without long-term current use of insulin ([facility]) 01/19/2017 Well adult exam 12/17/2014 Last done:11/16/2019 PAST SURGICAL HISTORY Procedure Laterality Date APPENDECTOMY HX 2004 ARTHROTOMY W/MENISCUS REPAIR KNEE Right 04/2021 COLONOSCOPY 06/2012 Dr. Corrigan +polyp, repeat 5 yrs COLONOSCOPY 08/30/2022 repeat in 5 years COLONOSCOPY FLX DX W/COLLJ SPEC WHEN PFRMD 08/16/2017 Colonoscopy, repeat 5 yrs, Dr. Bliss PAST SURGICAL HISTORY OF 2009 benign cysts: 1 from head and 2 from neck TONSILLECTOMY & ADENOIDECTOMY AGE 11/> 1979 TONSILLECTOMY HX FAMILY HISTORY Problem Relation Age of Onset Colon Cancer Father 52 Coronary Artery Disease Father Coronary Artery Disease Mother 60's Hypertension Mother No Known Problems Brother No Known Problems Brother No Known Problems Brother Coronary Artery Disease Maternal Grandmother 60's Stroke Maternal Grandfather Colon Cancer Paternal Uncle 49 Alzheimer's Disease No Family History Prostate Cancer No Family History Breast Cancer No Family History Hyperlipidemia No Family History Kidney Disease No Family History Seizures No Family History Thyroid No Family History No Ocular Disease No Family History Social History Tobacco Use Smoking status: Never Smokeless tobacco: Never Vaping Use Vaping Use: Never used Substance Use Topics Alcohol use: Yes Comment: Rarely Drug use: No Current Outpatient Medications Medication Sig Dispense Refill methylphenidate CD (METADATE CD) 10 mg biphasic capsule Take 1 capsule by mouth once daily for 30 days. 30 capsule 0 atorvastatin (LIPITOR) 40 mg tablet Take 1 tablet by mouth once daily. 90 tablet 1 Fenofibrate (LOFIBRA) 54 mg tablet Take 1 tablet by mouth once daily. 90 tablet 1 busPIRone (BUSPAR) 15 mg tablet Take one tab by mouth twice a day. 180 tablet 1 DULoxetine (CYMBALTA) 60 mg capsule Take 1 capsule by mouth once daily. 90 capsule 1 OLANZapine (ZYPREXA) 5 mg tablet Take 1 tablet by mouth daily at bedtime. 90 tablet 1 doxepin capsule 10 mg Take 1 capsule by mouth daily at bedtime. 90 capsule 1 esomeprazole (NEXIUM) 40 mg capsule Take 1 capsule by mouth once daily. 90 capsule 1 HUMALOG KWIKPEN INSULIN 100 unit/mL Inject subcutaneously 16 units breakfast, 16 units lunch, 16 units dinner plus sliding scale up to 75 units daily 30 mL 11 insulin degludec (TRESIBA U-100 INSULIN) 100 unit/mL injection Inject 50 Units subcutaneously daily at bedtime. 15 Each 11 Insulin Wykoff, Disposable, (DROPLET PEN NEEDLE) 31 gauge x 3/16 Use 4 PEN NEEDLES to inject MEDICATION subcutaneously daily 400 Each 3 metFORMIN (GLUCOPHAGE) 500 mg tablet Take 2 tablets by mouth two times a day with meals. 360 tablet 3 Blood-Glucose Sensor (FREESTYLE EVERT 3 SENSOR) agnes Use one sensor every 14 day, IDDM, E11.9 2 Each 11 zonisamide (ZONEGRAN) 25 mg capsule Take 1 capsule by mouth once daily. 90 capsule 1 multivitamin tablet Take 1 tablet by mouth once daily. 0 CPAP AUTO PAP 5-20 cmH20, CHIN STRAP, heated HUMIDITY, mask of patient's choice. LIFETIME SUPPLIES. SD Card. Download to [employer]. (Patient not taking: Reported on 10/20/2023) 1 Device 99 No current facility-administered medications for this visit. Allergies As of Date: 01/17/2024 Allergen Noted Reaction TOPAMAX [TOPIRAMATE] 02/04/2014 Mental Status Change CELEXA [CITALOPRAM HYDROBROMIDE] 10/22/2014 Other: See Comments EFFEXOR [VENLAFAXINE ANALOGUES] 10/22/2014 Other: See Comments REGLAN [METOCLOPRAMIDE HCL] 01/24/2007 Unknown ZOLOFT [SERTRALINE HCL] 10/22/2014 Other: See Comments Fully Assessed 01/17/2024 REVIEW OF SYSTEMS: Review of Systems Cardiovascular: Negative for chest pain. Gastrointestinal: Negative for nausea, vomiting, diarrhea and constipation. PHYSICAL EXAM: BP 136/91 Pulse 88 Ht 188 cm (6' 2) Wt 134.9 kg (297 lb 6.4 oz) SpO2 95% BMI 38.18 kg/m2 Physical Exam Constitutional: Appearance: Normal appearance. He is obese. Cardiovascular: Rate and Rhythm: Normal rate and regular rhythm. Pulmonary: Effort: Pulmonary effort is normal. Breath sounds: Normal breath sounds. Skin: General: Skin is warm and dry. Neurological: Mental Status: He is alert and oriented to person, place, and time. Psychiatric: Mood and Affect: Mood normal. Behavior: Behavior normal. DATA: Creatinine Date Value Ref Range Status 12/06/2023 0.79 0.73 - 1.22 mg/dL Final Hemoglobin A1C (%) Date Value 03/24/2021 8.0 Hemoglobin A1C (POCT) (%) Date Value 10/18/2023 10.1 ) No components found for: URINEALBUMIN Cholesterol, Total (mg/dL) Date Value 06/04/2022 129 02/20/2018 230 Total Cholesterol, Nonfasting (mg/dL) Date Value 12/06/2023 200 12/22/2020 159 HDL Cholesterol (mg/dL) Date Value 06/04/2022 27 02/20/2018 30 HDL Cholesterol, Nonfasting (mg/dL) Date Value 12/06/2023 29 12/22/2020 30 LDL Cholesterol (mg/dL) Date Value 01/25/2017 129 LDL Cholesterol, Nonfasting (mg/dL) Date Value 12/06/2023 106 12/22/2020 70 Triglyceride (mg/dL) Date Value 06/04/2022 227 02/20/2018 158 Triglycerides, Nonfasting (mg/dL) Date Value 12/06/2023 325 12/22/2020 296 IMPRESSION: Mr. Delarosa is a 48 year old male here for evaluation of DM Type 2 complicated by dyslipidemia, Thyroid nodules, obesity. RECOMMENDATIONS: (E11.9) Type 2 diabetes mellitus without complication, without long-term current use of insulin (HCC) (primary encounter diagnosis) Comment: Glycemic control is poor. Per evert he is running higher then A1C indicates. Insulin adjusted. Plan: HEMOGLOBIN A1C (POC), insulin degludec (TRESIBA U-100 INSULIN) 100 unit/mL injection, HUMALOG KWIKPEN INSULIN 100 unit/mL Continue metformin Tresiba 60 units daily at bedtime. Humalog: Breakfast 20 units Lunch 20 units Dinner 20 units If Blood Glucose (mg/dL) is < 150 Give 0 units 151-200 Give 2 units 201-250 Give 4 units 251-300 Give 6 units 301-350 Give 8 units >351 Give 10 units Message me in 2 wks to look at the evert Follow up in 3 months (E78.5) Dyslipidemia Comment/Plan: Managed per PCP; he is on a statin and fibrate. (E04.2) Multiple thyroid nodules Comment/Plan: Repeat ultrasound and TFT--previously ordered. (E66.9) Obesity, Class II, BMI 35-39.9 Comment/Plan: Body mass index is 38.18 kg/m . Medical Decision Making: Level: 4 - Moderate Torres Monaco, MSN, TAX ACCOUNTANT, MANAGER DISASTER [employer]OVERY-C, CDE Endocrinology [facility] Medical Office Building/[address], [address] [place] [address] Fax: documented in this encounter [facility] 01-17-2024 Procedure note Procedure(s): EXTERNAL HORSE WRANGLER, CGM SYS Images from the original note were not included. documented in this encounter [facility] 12-16-2023 Miscellaneous Notes The following approved medication requests have been transmitted electronically. Requested Prescriptions Signed Prescriptions Disp Refills methylphenidate CD (METADATE CD) 10 mg biphasic capsule 30 capsule 0 Sig: Take 1 capsule by mouth once daily for 30 days. Humberto Jackson MD Please see pt's message. Carmelo Lopez LPN documented in this encounter [facility] 12-15-2023 Miscellaneous Notes Pt notified of same and will contact pharmacy. Carmelo Lopez LPN The prescription was sent on 12/06 with fill date of 12/07/23. Patient needs to contact pharmacy, Kenyatta Castaneda PA-C Please see pt's message regarding refill of Ritalin. Pt saw you 12/06/23. Carmelo Lopez LPN documented in this encounter [facility] 12-07-2023 Miscellaneous Notes The following approved medication requests have been transmitted electronically. Requested Prescriptions Signed Prescriptions Disp Refills atorvastatin (LIPITOR) 40 mg tablet 90 tablet 1 Sig: Take 1 tablet by mouth once daily. Authorizing Provider: HUMBERTO JACKSON MD Patient informed and agrees to increase of Lipitor. Please send to [facility] in [place]. Patient inquired about his Ritalin. States someone at the hospital removed this from his med list. Inquiring about being put back on it? Advise. Dannielle Herr Let patient know his lipid panel showed Trigs elevated at 325 (goal<150), HDL low at 29 (goal>40) and LDL slightly elevated at 106 (goal<100). I would like to increase the lipitor to 40 mg a day. If ok will send in a new script. The rest of his labs and UA were ok. documented in this encounter [facility] 12-06-2023 History of Present illness Narrative Chief Complaint Patient presents with: Physical HPI Bianca Delarosa is a 47 year old male who presents here today for Physical. Patient with hx of DM 2, hyperlipidemia, GERD, mood disorder, thyroid nodules, allergies, depression, migraines, insomnia, MIKE as well as those reviewed and addressed below and in ROS 0 Result Notes 1 HM Topic Component Ref Range & Units 1 mo ago (10/18/23) 5 mo ago (07/07/23) 10 mo ago (01/27/23) 1 yr ago (10/21/22) 1 yr ago (03/04/22) Hemoglobin A1C (POCT) 4.2 - 5.6 % 10.1 Abnormal 11.1 Abnormal CM 11.0 Abnormal CM 11.2 Abnormal CM 10.5 Abnormal CM Any new concerns today? Diarrhea x 2-3 days. Patient has not been off of medications for 3 months. Patient was scheduled for physical in 08/2023. Cancelled message left by PSS. Patient sent a refill request and was given one month. Patient was sent a my chart message to schedule. They didn't call the patient to help schedule. Any recent ER/hospital visits? None Seeing Endo last visit was 10/18/2023. At last visit in 12/2022 he had been working on diet and exercise and has lost some weight. At last visit patient had not worn his CPAP since before COVID due to making it hard to breath. Is patient using the CPAP again? Not using Had last eye exam 10/20/2023 Dr. Mejia Past medical history, appointments, medications, allergies reviewed. Previous Medical History PAST MEDICAL HISTORY Diagnosis Date Agitation 03/31/2014 Allergic rhinitis 03/31/2014 Allergy-induced asthma 03/31/2014 Mild intermitant Asthma Attention 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 12/07/2022 Substance agreement signed 12/2022, Tox screen done 12/2022 Current use of proton pump inhibitor 09/26/2018 Diabetic eye exam (HCC) 01/27/2017 Last eye exam: 03/05/2019 Diverticulosis 03/31/2014 Dyslipidemia 03/31/2014 Low HDL, High Trigs Elevated antinuclear antibody (JALEEL) level 03/31/2014 Family history of malignant neoplasm of gastrointestinal tract 03/31/2014 ISABELLA (generalized anxiety disorder) 06/22/2020 GERD without esophagitis 09/26/2018 Hiatal hernia 03/31/2014 Hx of colonic polyp 03/31/2014 Needs next colonoscopy 08/2022 Lump 11/16/2019 benign left palm Major depressive disorder with single episode, 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 Lazaro 03/2018 Multiple thyroid nodules 02/27/2018 US 03/2020 per radiology no further f/u needed.. All benign Biopsy 03/[address] Lazaro. Benign. Obesity, Class II, BMI 35-39.9 10/21/2022 Obstructive sleep apnea syndrome 01/27/2017 On CPAP Other joint derangement, not elsewhere classified, lower leg 03/25/2013 Primary insomnia 07/28/2020 QT prolongation 04/20/[address] [facility] 04/19/2021: Retsof to be benign and related to anti-depressants. No changes needed. TMJ (temporomandibular joint disorder) 03/31/2014 Right side Type 2 diabetes mellitus without complication, without long-term current use of insulin (HCC) 01/19/2017 Well adult exam 12/17/2014 Last done:11/16/2019 Previous Surgical History PAST SURGICAL HISTORY Procedure Laterality Date APPENDECTOMY HX 2003 ARTHROTOMY W/MENISCUS REPAIR KNEE Right 04/2021 COLONOSCOPY 06/2012 Dr. Corrigan +polyp, repeat 5 yrs COLONOSCOPY 08/30/2022 repeat in 5 years COLONOSCOPY FLX DX W/COLLJ SPEC WHEN PFRMD 08/16/2017 Colonoscopy, repeat 5 yrs, Dr. Bliss PAST SURGICAL HISTORY OF 2009 benign cysts: 1 from head and 2 from neck TONSILLECTOMY & ADENOIDECTOMY AGE 11/> 1979 TONSILLECTOMY HX Family History FAMILY HISTORY Problem Relation Age of Onset Colon Cancer Father 52 Coronary Artery Disease Father Coronary Artery Disease Mother 60's Hypertension Mother No Known Problems Brother No Known Problems Brother No Known Problems Brother Coronary Artery Disease Maternal Grandmother 60's Stroke Maternal Grandfather Colon Cancer Paternal Uncle 49 Alzheimer's Disease No Family History Prostate Cancer No Family History Breast Cancer No Family History Hyperlipidemia No Family History Kidney Disease No Family History Seizures No Family History Thyroid No Family History No Ocular Disease No Family History Patient Allergies ALLERGIES Allergen Reactions Topamax [Topiramate] Mental Status Change Unable to remember anything Celexa [Citalopram * Other: See Comments uneffective Effexor [Venlafaxin* Other: See Comments Sexual side affect Reglan [Metoclopram* Unknown Zoloft [Sertraline * Other: See Comments drowsy Current Medications Current Outpatient Medications on File Prior to Visit Medication Sig HUMALOG KWIKPEN INSULIN 100 unit/mL Inject subcutaneously 16 units breakfast, 16 units lunch, 16 units dinner plus sliding scale up to 75 units daily insulin degludec (TRESIBA U-100 INSULIN) 100 unit/mL injection Inject 50 Units subcutaneously daily at bedtime. Insulin Wykoff, Disposable, (DROPLET PEN NEEDLE) 31 gauge x 3/16 Use 4 PEN NEEDLES to inject MEDICATION subcutaneously daily metFORMIN (GLUCOPHAGE) 500 mg tablet Take 2 tablets by mouth two times a day with meals. Blood-Glucose Sensor (FREESTYLE EVERT 3 SENSOR) agnes Use one sensor every 14 day, IDDM, E11.9 Fenofibrate (LOFIBRA) 54 mg tablet Take 1 tablet by mouth once daily. atorvastatin (LIPITOR) 20 mg tablet Take 1 tablet by mouth once daily. zonisamide (ZONEGRAN) 25 mg capsule Take 1 capsule by mouth once daily. busPIRone (BUSPAR) 15 mg tablet Take one tab by mouth twice a day. DULoxetine (CYMBALTA) 60 mg capsule Take 1 capsule by mouth once daily. OLANZapine (ZYPREXA) 5 mg tablet Take 1 tablet by mouth daily at bedtime. doxepin capsule 10 mg Take 1 capsule by mouth daily at bedtime. CPAP AUTO PAP 5-20 cmH20, CHIN STRAP, heated HUMIDITY, mask of patient's choice. LIFETIME SUPPLIES. SD Card. Download to [employer]. (Patient not taking: Reported on 10/20/2023) multivitamin tablet Take 1 tablet by mouth once daily. esomeprazole (NEXIUM) 40 mg capsule Take 40 mg by mouth once daily. No current facility-administered medications on file prior to visit. Social History Social History Tobacco Use Smoking status: Never Smokeless tobacco: Never Vaping Use Vaping Use: Never used Substance Use Topics Alcohol use: Yes Comment: Rarely Drug use: No Review of Symptoms REVIEW OF SYSTEMS GENERAL: No weight loss, malaise or fevers HEENT: Negative for frequent or significant headaches, No changes in hearing or vision, no nose bleeds or other nasal problems NECK: Negative for lumps, goiter, pain and significant neck swelling RESPIRATORY: Negative for cough, hemoptysis, wheezing, COPD, dyspnea or shortness of breath CARDIOVASCULAR: Negative for chest pain, leg swelling, hypertension, CHF or palpitations GI: No nausea, vomiting. See HPI. No GERD unless he misses his Nexium a few days in a row. No blood : No history of dysuria, frequency or blood MUSCULOSKELETAL: Negative for joint pain or swelling, back pain or muscle pain SKIN: Negative for lesions, rash, and itching PSYCH: when on the cymbalta and zyprexa HEMATOLOGY/LYMPHOLOGY: Negative for prolonged bleeding, bruising easily or swollen nodes ENDOCRINE: Negative for cold or heat intolerance, no symptoms of low BS's. NEURO: No history of headaches, syncope, paralysis, seizures or tremors EXAM: BP 128/96 (BP Site: Right Arm, BP Position: Sitting, BP Cuff Size: Large Adult) Pulse 72 Resp 16 Ht 188 cm (6' 2) Wt 132.5 kg (292 lb) BMI 37.49 kg/m BP 132/78 Pulse 72 Resp 16 Ht 188 cm (6' 2) Wt 132.5 kg (292 lb) BMI 37.49 kg/m Last 5 Encounter Wt Readings: Date: Wt: 12/06/2023 132.5 kg (292 lb) 10/18/2023 133 kg (293 lb 3.4 oz) 09/23/2023 130.5 kg (287 lb 11.2 oz) 07/07/2023 131.1 kg (289 lb) 04/14/2023 130.2 kg (287 lb) General Appearance: Well appearing, alert, in no acute distress, well-hydrated, well nourished. and Obese. Skin: Skin color, texture, turgor normal, no suspicious rashes or lesions. Head: Normocephalic, no masses, lesions, tenderness or abnormalities. Eyes: Anicteric sclera. Pupils are equally round and reactive to light. Extraocular movements are intact. . Ears: External ears, TM's normal, canals clear. Nose/Sinuses: Nares normal, septum midline, mucosa normal, no drainage or sinus tenderness. Oropharynx: Lips, mucosa, and tongue normal, teeth and gums normal, oropharynx normal. Neck: Supple, no adenopathy; thyroid symmetric, normal size, no bruits. Lungs: Lungs clear to auscultation. No wheezing, rhonchi, rales.. Heart: RRR without murmur, gallop, or rubs. No ectopy. Abdomen: Normal abdominal exam, Abdomen soft, non-tender. Bowel sounds normal. No masses, organomegaly. Extremities: No deformities, edema, skin discoloration, clubbing or cyanosis. Good capillary refill. . Musculoskeletal: Spine range of motion normal. Muscular strength intact, No joint swelling, deformity, or tenderness. Peripheral Pulses: Normal. Neurologic: Gait normal. Reflexes normal and symmetric. Sensation to light touch and crainal nerves 2-12 intact.. Genitalia: Normal, Penis normal. No urethral discharge. Scrotum normal to palpation. No hernia.. Health Maintenance List Covid-19 Vaccine() due on 06/09/2023 HbA1C due on 01/17/2024 Annual PCP Team Chronic Disease Visit due on 04/14/2024 Diabetic Foot Exam due on 07/07/2024 Urine Albumin:Creatinine Ratio due on 08/11/2024 LDL Cholesterol due on 08/11/2024 Dilated Retinal Exam due on 10/20/2024 Colorectal Cancer Screening due on 08/30/2027 DTaP,Tdap,Td Vaccine(3 - Td or Tdap) due on 04/13/2031 Pneumococcal Vaccine(3 of 3 - PPSV23 or PCV20) due on 12/14/2039 Hepatitis B Vaccine Completed Influenza Vaccine Completed Spirometry Discontinued Hepatitis C Screening Discontinued HIV Screening Discontinued Data reviewed Component Latest Ref Rng & Units 08/11/2023 09/28/2023 10/18/2023 WBC 3.70 - 11.00 k/uL 8.50 14.08 (H) RBC 4.20 - 6.00 m/uL 4.89 4.69 Hemoglobin 13.0 - 17.0 g/dL 15.3 14.3 Hematocrit 39.0 - 51.0 % 44.4 42.5 MCV 80.0 - 100.0 fL 90.8 90.6 MCH 26.0 - 34.0 pg 31.3 30.5 MCHC 30.5 - 36.0 g/dL 34.5 33.6 RDW-CV 11.5 - 15.0 % 11.9 11.7 Platelet Count 150 - 400 k/uL 262 307 MPV 9.0 - 12.7 fL 11.4 12.5 Neut% % 53.7 Abs Neut (ANC) 1.45 - 7.50 k/uL 4.57 Lymph% % 37.1 Abs Lymph 1.00 - 4.00 k/uL 3.15 Tensas% % 6.7 Abs Tensas <0.87 k/uL 0.57 Eosin% % 1.4 Abs Eosin <0.46 k/uL 0.12 Baso% % 0.7 Abs Baso <0.11 k/uL 0.06 Immature Gran % % 0.4 IMMATURE GRANS (ABS) <0.10 k/uL 0.03 NRBC /100 WBC 0.0 Absolute nRBC <0.01 k/uL <0.01 <0.01 DTYPE Auto Protein, Total 6.3 - 8.0 g/dL 6.7 Albumin 3.9 - 4.9 g/dL 4.5 Calcium 8.5 - 10.2 mg/dL 9.2 Bilirubin, Total 0.2 - 1.3 mg/dL 0.5 Alkaline Phosphatase 38 - 113 U/L 125 (H) AST 14 - 40 U/L 25 ALT 10 - 54 U/L 24 Glucose 74 - 99 mg/dL 187 (H) BUN 9 - 24 mg/dL 12 Creatinine 0.73 - 1.22 mg/dL 0.79 Sodium 136 - 144 mmol/L 138 Potassium 3.7 - 5.1 mmol/L 4.3 Chloride 97 - 105 mmol/L 101 CO2 22 - 30 mmol/L 26 Anion Gap 9 - 18 mmol/L 11 eGFR >=60 mL/min/1.73m 110 Color Yellow Yellow Clarity Clear Clear Glucose, Urine Negative Negative Bilirubin, Urine Negative Negative Ketones, Urine Negative Negative Specific Bowdle, Ur 1.005 - 1.030 1.010 Hemoglobin/Blood,Ur Negative Negative pH, Urine 5.0 - 8.0 7.0 Protein, Urine Negative Negative Urobilinogen 0.2-1.0 EU/dL 0.2 EU/dL Nitrites Negative Negative Leukest Negative Negative WBC, Urine 0-5 /HPF 0-5 /HPF RBC, Urine 0-3 /HPF 0-3 /HPF Epithelial Cells /HPF Few Total Cholesterol, Nonfasting <200 mg/dL 178 Triglycerides, Nonfasting <150 mg/dL 184 (H) HDL Cholesterol, Nonfasting >39 mg/dL 38 (L) LDL Cholesterol, Nonfasting <100 mg/dL 103 (H) Non HDL Cholesterol, Nonfasting <130 mg/dL 140 (H) VLDL Cholesterol, Nonfasting <30 mg/dL 37 (H) Total Chol/HDL Ratio, Nonfasting <5.10 mg/dL 4.68 LDL/HDL Ratio, Nonfasting <2.54 mg/dL 2.71 (H) Creatinine, Ur Random (UCRR) 20.0 - 300.0 mg/dL 147.7 Albumin, Urine Random mg/L <12.0 Albumin/Creat Ratio <30 mg/g <8 Hemoglobin A1C (POCT) 4.2 - 5.6 % 10.1 (A) A/P ASSESSMENT/PLAN: 1. Well adult exam - ICD9: V70.0, ICD10: Z00.00 (primary diagnosis) - Counseled on healthy diet and regular exercise - Discussed need for and benefit of weight loss. BMI 37.49 kg/(m^2) - Patient was counseled [id number] by myself (the billing provider) for the following immunizations and vaccine components, including side effects: COVID-19 and Pneumococcal . Patient consents for immunization and understands risks and benefits. A VIS sheet on each immunization was given to the patient. - Follow up for annual exam in one year 2. Type 2 diabetes mellitus without complication, without long-term current use of insulin (HCC) - ICD9: 250.00, ICD10: E11.9 - managed per Endo - Continue current medications - Counseled on healthy diet and regular exercise - Discussed need for and benefit of weight loss. BMI 37.49 kg/(m^2) Check - COMP METABOLIC PANEL - URINALYSIS, WITH MICROSCOPIC - LIPID PANEL, NONFASTING - CBC + DIFF 3. Diabetic eye exam (HCC) - ICD9: V72.0, 250.00, ICD10: Z01.00, E11.9 - up to date 4. Dyslipidemia - ICD9: 272.4, ICD10: E78.5 - await labs - Continue current medications - Counseled on healthy diet and regular exercise - Discussed need for and benefit of weight loss. BMI 37.49 kg/(m^2) Check - COMP METABOLIC PANEL - URINALYSIS, WITH MICROSCOPIC - LIPID PANEL, NONFASTING 5. GERD without esophagitis - ICD9: 530.81, ICD10: K21.9 - Continue treatment with Nexium 40 mg every day Check - VITAMIN B12 BLOOD - MAGNESIUM BLD 6. Migraine without aura and without status migrainosus, not intractable - ICD9: 346.10, ICD10: G43.009 - stable and will keep him off the Zonegran for now. 7. Mild intermittent extrinsic asthma without complication - ICD9: 493.00, ICD10: J45.20 - Mild intermittent asthma stable - Avoidance of triggers recommended 8. Multiple thyroid nodules - ICD9: 241.1, ICD10: E04.2 Check - TSH BLD 9. Major depressive disorder with single episode, in partial remission (HCC) - ICD9: 296.25, ICD10: F32.4 - stable with meds. 10. Attention 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 - ICD9: 314.00, ICD10: F98.8 - stable - cont Tx. PDMP website checked and validated. All prescriptions have been APPROPRIATELY filled. No suspicious activity was identified. 12/07/2023 by Humberto Jackson MD 11. Mood disorder (HCC) - ICD9: 296.90, ICD10: F39 - as per #9 12. ISABELLA (generalized anxiety disorder) - ICD9: 300.02, ICD10: F41.1 - as per #9 13. Agitation - ICD9: 307.9, ICD10: R45.1 - as per #9 14. Primary insomnia - ICD9: 307.42, ICD10: F51.01 - stable with Tx. 15. Obesity, Class II, BMI 35-39.9 - ICD9: 278.00, ICD10: E66.9 - patient to work on life style changes for weight loss. 16. History of COVID-19 - ICD9: V12.09, ICD10: Z86.16 - all symptoms have resolved. 17. Need for vaccination - ICD9: V05.9, ICD10: Z23 - PNEUMOCOCCAL VACCINE, 20 VALENT (PREVNAR 20): given 18. Medication management - ICD9: V58.69, ICD10: Z79.899 Check - VITAMIN B12 BLOOD - TSH BLD - MAGNESIUM BLD - CBC + DIFF 19. Encounter for immunization - ICD9: V03.89, ICD10: Z23 - PFIZER-BIONTOsteogenix COVID-19 VACCINE (2022- SEASON) AGE 12+ YR: check Requested Prescriptions Signed Prescriptions Disp Refills Fenofibrate (LOFIBRA) 54 mg tablet 90 tablet 1 Sig: Take 1 tablet by mouth once daily. atorvastatin (LIPITOR) 20 mg tablet 90 tablet 1 Sig: Take 1 tablet by mouth once daily. busPIRone (BUSPAR) 15 mg tablet 180 tablet 1 Sig: Take one tab by mouth twice a day. DULoxetine (CYMBALTA) 60 mg capsule 90 capsule 1 Sig: Take 1 capsule by mouth once daily. OLANZapine (ZYPREXA) 5 mg tablet 90 tablet 1 Sig: Take 1 tablet by mouth daily at bedtime. doxepin capsule 10 mg 90 capsule 1 Sig: Take 1 capsule by mouth daily at bedtime. esomeprazole (NEXIUM) 40 mg capsule 90 capsule 1 Sig: Take 1 capsule by mouth once daily. F/u in 6 months routine Humberto Jackson MD documented in this encounter [facility] 12-01-2023 Miscellaneous Notes STACY Isaac called multiple lines to through at [employer]. [employer] approved the freestyle evert 3 sensors and he last filled on 11/25/23. Closed Faxed Appeal letter and last office note to Abdulaziz [facility] at [phone] transmission ok Keep open Rx sent They would not allow consideration of the appeal letter I wrote earlier today? Insurance requesting refills as follows: We need to send a new RX for the sensors and then complete PA. Requested Prescriptions Pending Prescriptions Disp Refills Blood-Glucose Sensor (FREESTYLE EVERT 3 SENSOR) agnes 2 Each 11 Sig: Use one sensor every 14 day, IDDM, E11.9 Please review and advise. Gwen Herbert Ma Spoke with patient moved patient to a new slot 11-18-2023. Please advise See message below. Needs to be seen sooner to address issues for evert. Thank you We received a DENIAL for the FreeStyle Evert 3 Sensors from [employer] ([employer]) Reference # [id number] Reason: We denied your request because we did not see what we need to approve the devise supplies you asked for, (FreeStyle Evert 3 sensor). We may be able to approve these devise supplies in a certain situation (when you have seen an improvement in diabetes management as a result of using the device). We do not see that this applies to you. We based this decision on your health plan's prior authorization clinical criteria named CGM's and CGM Supplies. Please advise. *PSS: Where you able to get a hold of patient to reschedule for this month? I cannot attest to those statements based on the last A1C but he is due to repeat it. He cancelled his appt for today 10/10/23. Next visit is scheduled for 12/01/23 which is past the 45 day response time needed. Please have him schedule for sometime this month instead. Ok to use a new slot if needed. Thank you Received a faxed notification back from [employer] JUAREZ/NORBERT[employer] ([employer]) that they are requiring additional information to be sent in order to process this request for renewal. We are asking your provider for the following clinical information: Because some or all of the information is lacking: if individual has seen improvement in diabetes management as a result of using the CGM; if the individual has a CGM device that is compatible with the requested supplies. We need information within 45 calendar days of the receipt of this letter (10/03/23 received). REF# [id number] Call [facility] once we have the updated information at [phone] to initiate, and they will likely supply a fax to send it to in order to process. Torres, Patients last OV and A1C was in 06/2023 when he was started on the Evert 3. He does not have another visit until 10/10/23. Completed PA via CMM for RX Freestyle Evert 3 Sensors. Will await approval / denial. BIANCA DELAROSA (Bland: [id number]) PA Need Help? Call us at Status sent iconSent to Plan today Drug FreeStyle Evert 3 Sensor ePA cloud logo Form [facility] [employer] PA Form (2016 NCPDP) documented in this encounter [facility] 09-11-2023 Miscellaneous Notes Received a faxed notification from [employer] that patient has been APPROVED FOR MOUNJARO 2.5 MG / 0.5 MG. REF# [id number] Closed. Received notification from [employer] that they denied the request because we did not see what we need to approve the drug you asked for (Mounjaro). We may be able to approve this drug when we see certain records (documentation that your diagnosis of type 2 diabetes mellitus has been verifies by a history of one of the following: A1C greater or equal to 6.5%, fasting plasma glucose (FPG) greater or equal to 126milligrams per deciliters (mg/dl)(after fasting for at least 8 hours), two hour plasma glucose greater than or equal to 200mg/dL as part og an oral glucose tolerance test (75grams of oral glucose after fasting for at least 8 hours) or symptoms of hyperglycemia. Refaxed the last office notes to [phone] (12 pages) Transmission Okx2 Faxed [phone] Transmission Okx2 Prior Authorization: Medication/Dose: Mounjaro 2.5 mg/0.5 mL Diagnosis: Type 2 DM E11.9 Provider: Joselyn Completed Via: over the phone ([facility]) Pending PA REF# [id number] Insurance: Abdulaziz BC/BS Pharmacy: [facility] Notes: Spoke to senior customer service representative Sumaya at [facility] and completed clinical questionnaire over the phone. Will receive notification of outcome within 5 business days via fax. Also faxed last clinical office note to [phone]. Transmission ok X2. 12 pages. documented in this encounter [facility] 08-24-2023 Miscellaneous Notes Patient phones requesting refills as follows: Script qty adjusted to the proper number. Patient uses 2 a day. Requested Prescriptions Pending Prescriptions Disp Refills Insulin Wykoff, Disposable, (DROPLET PEN NEEDLE) 31 gauge x 3/16 200 Each 3 Sig: Use 2 PEN NEEDLES to inject MEDICATION subcutaneously daily Please review and advise. Marlin Carey MA documented in this encounter [facility] 08-14-2023 Miscellaneous Notes Left message for patient to return call to office Chuy Jackson Cma Please let patient know labs are stable. Lipid panel has improved. Patient should continue current medications. documented in this encounter [facility] 07-17-2023 Miscellaneous Notes Please review and advise. documented in this encounter [facility] 06-05-2023 Miscellaneous Notes The following approved medication requests have been transmitted electronically. Requested Prescriptions Signed Prescriptions Disp Refills methylphenidate LA (RITALIN LA) 10 mg biphasic capsule 30 capsule 0 Sig: Take 1 capsule by mouth once daily for 30 days. Authorizing Provider: HUMBERTO JACKSON MD PDMP website checked and validated. All prescriptions have been APPROPRIATELY filled. No suspicious activity was identified. 06/05/2023 by Humberto Jackson MD Patient has been identified by name and date of : Yes Requested Prescriptions Pending Prescriptions Disp Refills methylphenidate LA (RITALIN LA) 10 mg biphasic capsule 30 capsule 0 Sig: Take 1 capsule by mouth once daily for 30 days. RX INSTRUCTIONS: Patient aware RX will be sent to pharmacy. No need to notify patient. Tam Daugherty MA Julio 04/2023 Nov 08/2023 Last refill: 03/2023 documented in this encounter [facility] 04-15-2023 Procedure note [facility] 04-15-2023 Note [facility] Medical Records Department [address] [place] [address] Discharge Summary 04/15/23 1055 MR#: [id number] Acct: [id number] Name: BIANCA DELAROSA Rep #: [id number] : 1975 47 From: Prince Villanueva MD PCP: Dr. Humberto Jackson MD Status:ADM KEY[facility] Prov[facility] Date of Admission: 04/14/23 Primary Care Physician: Dr. Humberto Jackson MD Reason For Visit: ABSCESS Diagnosis Discharge Diagnosis (1) Perirectal abscess: Status: Acute Code(s): K61.1 - Rectal abscess Plan: This is a 47-year-old diabetic male who presents with a 96-hour history of perirectal discomfort and no clinical evidence of a perirectal abscess. There is been no drainage of this abscess and given patient's tenderness on exam I recommend operative incision and drainage. Patient reports that this is his second such episode which raises my suspicion for possible fistula in ano. We will therefore plan to perform an anorectal exam under anesthesia and if a fistulous tract is identified proceed with seton drain placement. And lieu of a fistulous tract, we will simply perform incision and drainage with packing. Patient's spouse confirms that she is familiar with this type of wound care. Given patient's comorbidities, I have recommended post procedure inpatient observation with IV a ntibiotic therapy. Operating room has been notified and we will proceed emergently for perirectal a bscess incision and drainage. Medications at Discharge Home Medications esomeprazole magnesium 40 mg capsule,delayed release 40 mg PO QHS gerd 10/10/17 fenofibrate 50 mg capsule 54 mg PO DAILY cholesterol 10/10/17 multivitamin 1 ea PO DAILY supplement 10/10/17 atorvastatin 20 mg tablet 20 mg PO DAILY 03/22/18 fluoxetine 40 mg capsule 60 mg PO QDAY 03/22/18 metformin 500 mg tablet 1,000 mg PO BID diabetes 03/22/18 Fish Oil 1,000 mg Capsule 1,000 mg PO BID 10/20/18 doxepin 10 mg capsule 10 mg PO QHS 10/20/18 olanzapine 2.5 mg tablet 2.5 mg PO QHS 10/20/18 zonisamide 25 mg capsule 25 mg PO DAILY 10/20/18 empagliflozin 25 mg tablet 25 mg PO DAILY #30 tabs 10/22/18 buspirone 15 mg tablet mg 04/14/23 duloxetine 60 mg capsule,delayed release mg PO 04/14/23 fluticasone propionate 50 mcg/actuation nasal spray,suspension 1 spray intranasal DAILY PRN allergic symptoms 04/14/23 insulin lispro protamine-lispro 100 unit/mL (75-25) subcutaneous pen subcut 04/14/23 methylphenidate HCl 10 mg biphasic 50-50 capsule,extended release mg PO 04/14/23 amoxicillin 500 mg-potassium clavulanate 125 mg tablet 1 tab PO Q8 7 days #21 tabs 04/15/23 oxycodone 5 mg tablet 5 mg PO Q6H PRN PRN Pain Score 6-10 3 days #10 tabs 04/15/23 Hospital Course Operations - (Incision and drainage of left perirectal abscess) Summary of Care Provided Hospital Course: Patient is a 47-year-old male who was admitted through the emergency department on 04/14/2023 after being diagnosed with a perirectal abscess. Given the sensitive location of the patient's infection and his history of diabetes, I recommended an operative incision and drainage procedure. This was undertaken in uncomplicated fashion the evening of 04/14/2023 and patient was admitted to the hospital floor for ongoing IV antibiotic therapy. Postoperative day 1 patient has had minimal discomfort and a dressing change was performed at bedside to educate patient's spouse on the wound care required upon discharge. Patient tolerated this with minimal discomfort. He remains hyperglycemic, but has been extensively counseled on the need to continue to monitor his blood sugars and remain in communication with his primary care provider who has been working on this issue for at least the last 1 week. Lastly, I have asked for outpatient follow-up in general surgery clinic in approximately 1 week to review patient's wound healing. All questions were answered from patient and his spouse and they expressed their satisfaction with the care received. Patient is discharged home with wound care instructions, wound care supplies, and prescription for ongoing antibiotic therapy. Physical Exam GI GI Narrative: Persistent induration of left buttock, but no further fluctuance and improving erythema observed. No bleeding observed with dressing change. Weight / BMI Weight Weight: 287 lb 8 oz Body Mass Index (BMI) 36.9 ABG / Lab / Microbiology Data 04/15/23 05:35 04/14/23 14:50 Laboratory: Laboratory Results - last 24 hr 04/14/23 14:50: WBC 9.8, RBC 4.74, Hgb 15.2, Hct 42.2, MCV 89.0, MCH 32.1 H, MCHC 36.0, RDW Std Deviation 37.4, RDW Coeff of Katie 11.6, Plt Count 203, MPV 12.4 H, Immature Gran % (Auto) 0.300, Neut % (Auto) 73.5 H, Lymph % (Auto) 19.3, Tensas % (Auto) 5.8, Eos % (Auto) 0.6, Baso % (Auto) 0.5, Absolu te Neuts (auto) 7.2, Absolute Lymphs (auto) 1.89, Nucleated RBC % 0, Sodium 135 L, Po (more content not included)... [facility] 04-14-2023 Discharge summary Note Date/Time April 14, 2023 2:10p m [facility] Medical Records Department [address] [place] [address] Emergency Department Summary 04/14/23 MR#: [id number] Acct: [id number] Name: BIANCA DELAROSA Rep #:[id number] : 1975 47 From: Jil CLAY PCP: Dr. Humberto Jackson MD Status:[facility] Location: [facility] AC-TB A-2 HPI <DANNA Welch - Last Filed: 04/14/23 17:06> History of Present Illness Chief Complaint: Abscess Narrative Narrative: 47-year-old male with PMH of DM2 presents with a buttock abscess x4 days. He had an abscess in the same area over 6 months ago that burst spontaneously. Today he was evaluated at his PCPs office and they sent him to the ED. He denies fever or chills. He is on insulin and does not know what his blood sugars have been running this week because his arm sensor fell off. PFSH <DANNA Welch - Last Filed: 04/14/23 17:06> [facility] Medical History (Updated 04/14/23 @ 17:[address] Prince Villanueva MD) Abnormal chest CT Acute respiratory failure Acute respiratory failure with hypoxia Anxiety and depression Chronic headache Community acquired pneumonia Diabetes mellitus, type II GERD (gastroesophageal reflux disease) HLD (hyperlipidemia) Multiple thyroid nodules Obesity (BMI 30-39.9) MIKE (obstructive sleep apnea) Pneumonia Restrictive airway disease Shortness of breath Home Medications esomeprazole magnesium 40 mg capsule,delayed release 40 mg PO QHS gerd 10/10/17 [History Last Taken 10/19/18] fenofibrate 50 mg capsule 54 mg PO DAILY cholesterol 10/10/17 [History Last Taken 10/20/18] multivitamin 1 ea PO DAILY supplement 10/10/17 [History Last Taken 10/20/18] atorvastatin 20 mg tablet 20 mg PO DAILY 03/22/18 [History Last Taken 10/20/18] fluoxetine 40 mg capsule 60 mg PO QDAY 03/22/18 [History Last Taken 10/20/18] metformin 500 mg tablet 1,000 mg PO BID diabetes 03/22/18 [History Last Taken 10/20/18] Fish Oil 1,000 mg Capsule 1,000 mg PO BID 10/20/18 [History Last Taken 10/20/18] Magnesium 250 mg PO BID 10/20/18 [History Last Taken 10/20/18] doxepin 10 mg capsule 10 mg PO QHS 10/20/18 [History Last Taken 10/19/18] olanzapine 2.5 mg tablet 2.5 mg PO QHS 10/20/18 [History Last Taken 10/19/18] riboflavin (vitamin B2) 100 mg tablet 100 mg PO BID 10/20/18 [History Last Taken 10/20/18] zonisamide 25 mg capsule 25 mg PO DAILY 10/20/18 [History Last Taken 10/20/18] empagliflozin 25 mg tablet 25 mg PO DAILY #30 tabs 10/22/18 [Rx Last Taken Unknown] Allergy/AdvReac Type Severity Reaction Status Date / Time citalopram Allergy Unknown Unknown Verified 03/06/19 14:55 venlafaxine Allergy Unknown Unknown Verified 03/06/19 14:55 metoclopramide [From Reglan] Allergy weirds me Verified 03/06/19 14:55 out sertraline [From Zoloft] Allergy sexual Verified 03/06/19 14:55 side effects topiramate [From Topamax] Allergy Unknown Verified 03/06/19 14:55 Family History Father Colon cancer at age 53 Heart disease Myocardial infarction Surgical History Hx of appendectomy Hx of tonsillectomy Social History Smoking Status: Never smoker second hand exposure: No alcohol intake: never substance use type: does not use caffeine: Yes what type of physical activity do you participate in: none frequency: does not exercise seatbelt use: always ROS <DANNA Welch - Last Filed: 04/14/23 17:06> ROS ED ROS Narrative Constitutional: Negative for fever, chills, malaise. GI: Negative for abdominal pain, nausea, vomiting. Skin: Negative for wound. EXAM <DANNA Welch - Last Filed: 04/14/23 17:06> Physical Exam Narrative Exam Narrative: CONST: Patient sitting in no acute distress. EYES: Normal inspection. NECK: Normal inspection. RESP: No respiratory distress, CTAB. CVS: Rapid but regular rhythm, no murmur, no gallop. Rectal: Left perirectal area has tenderness and erythema extending toward the rectum. No induration, no lymphangitis. SKIN: Color normal, no rash, warm, dry, intact. EXTREMITIES: Normal appearance, no pedal edema. NEURO: Oriented x4. PSYCH: Normal affect. Const Vital Signs: 04/14/23 14:01 04/14/23 16:13 04/14/23 17:03 Temperature 97.1 F L 99.7 F H 99.8 F H Temperature Source Temporal Temporal Temporal Pulse Rate 123 H 99 Respiratory Rate 18 16 16 Blood Pressure 144/108 H 136/86 H 117/81 H Blood Pressure Mean 120 102 93 Blood Pressure Source Monitor Blood Pressure Position Supine Blood Pressure Location Right Arm Pulse Ox 95 91 91 Oxygen Delivery Method Room Air Room Air Room Air <Dr. Macey Merchant DO - Last Filed: 04/14/23 15:59> Physical Exam Const Vital Signs: 04/14/23 14:01 04/14/23 16:13 04/14/23 17:03 Temperature 97.1 F L 99.7 F H 99.8 F H Temperature Source Temporal Temporal Temporal Pulse Rate 123 H 99 Respiratory Rate 18 16 16 Blood Pressure 144/108 H 136/86 H 117/81 H Blood Pressure Mean 120 102 93 Blood Pressure Source Monitor Blood Pressure Position Supine Blood Pressure Location Right Arm Pulse Ox 95 91 91 Oxygen Delivery Method Room Air Room Air Room Air [facility] <DANNA Welch - Last Filed: 04/14/23 17:06> [facility] Narrative Medical decision making narrative: History gathered from: Patient and spouse Patient has a perirectal abscess x4 days. He appears well and nontoxic. Heart rate in the 120s with otherwise normal vital signs. There is an area of erythema and tenderness in the left perirectal region but I cannot feel a discrete abscess. I am concerned there could be extension into the rectum with its proximity. With his history of diabetes and tachycardia plan will be for labs and CT of the pelvis to evaluate. He has a normal white count at 9.8. Glucose is 300. CT shows a Francis rectal abscess somewhere around 2 x 4 cm. Theon-call general surgeon, Dr. Villanueva, took the patient to the OR for drainage. Hewas given a dose of IV Zosyn in the ED. Differential: Cutaneous abscess versus deep perirectal abscess Consults: General surgery I have personally performed a face to face assessment of the patient and have reviewed the RICHAR Note. I performed a substantive portion of the visit including all aspects of the following. My bland findings include: History is [patient presents with pain and fullness near her rectum x4 days. He denies fever although he has had some sweats. Patient states that he had a similar episode about 6 months ago where he had a spontaneous draining abscess that his primary care physician expressed pus from. Patient has not had any issues since. He has not had any surgical intervention.] Exam is [HEENT-normocephalic atraumatic Cardiovascular-heart regular rate and rhythm without murmur Lungs-clear to auscultation Abdomen-soft and nontender to palpation. Normoactive bowel sounds. Rectal exam-patient has soft tissue swelling and some induration along the medial aspect of the left buttock near the rectum that is tender to palpation into a near the perineum. No fluctuance noted. No discrete abscess palpated.] Medical Decision Making [I my interpretation of the CT scan of the pelvis with IV contrast it appears patient has a soft tissue abscess measuring approximately 4 cm x 2 and half centimeters. I discussed marysol case with general surgery on-call who will evaluate patient for incision and drainage of suspected abscess.] Other additions or changes: [None] Lab Data Attestation: I reviewed the patient's lab results. Labs: Laboratory Results - last 24 hr 04/14/23 14:50 WBC 9.8 RBC 4.74 Hgb 15.2 Hct 42.2 MCV 89.0 MCH 32.1 H MCHC 36.0 RDW Std Deviation 37.4 RDW Coeff of Katie 11.6 Plt Count 203 MPV 12.4 H Immature Gran % (Auto) 0.300 Neut % (Auto) 73.5 H Lymph % (Auto) 19.3 Tensas % (Auto) 5.8 Eos % (Auto) 0.6 Baso % (Auto) 0.5 Absolute Neuts (auto) 7.2 Absolute Lymphs (auto) 1.89 Nucleated RBC % 0 Sodium 135 L Potassium 3.7 Chloride 102 Carbon Dioxide 23.0 Anion Gap 10 BUN 9 Creatinine 0.79 Estim Creat Clear Calc 132.95 Est GFR (MDRD) Af Amer 134 Est GFR (MDRD) Non-Af 111 BUN/Creatinine Ratio 11.3 Glucose 300 H Calcium 8.9 <Dr. Macey Merchant, DO - Last Filed: 04/14/23 15:59> [facility] Narrative Medical decision making narrative: History gathered from: Patient and spouse Patient has a perirectal abscess x4 days. He appears well and nontoxic. Heart rate in the 120s with otherwise normal vital signs. There is an area of erythema and tenderness in the left perirectal region but I cannot feel a discrete abscess. I am concerned there could be extension into the rectum with its proximity. With his history of diabetes and tachycardia plan will be for labs and CT of the pelvis to evaluate. I have personally performed a face to face assessment of the patient and have reviewed the RICHAR Note. I performed a substantive portion of the visit including all aspects of the following. My bland findings include: History is [patient presents with pain and fullness near her rectum x4 days. He denies fever although he has had some sweats. Patient states that he had a similar episode about 6 months ago where he had a spontaneous draining abscess that his primary care physician expressed pus from. Patient has not had any issues since. He has not had any surgical intervention.] Exam is [HEENT-normocephalic atraumatic Cardiovascular-heart regular rate and rhythm without murmur Lungs-clear to auscultation Abdomen-soft and nontender to palpation. Normoactive bowel sounds. Rectal exam-patient has soft tissue swelling and some induration along the medial aspect of the left buttock near the rectum that is tender to palpation into a near the perineum. No fluctuance noted. No discrete abscess palpated.] Medical Decision Making [I my interpretation of the CT scan of the pelvis with IV contrast it appears patient has a soft tissue abscess measuring approximately 4 cm x 2 and half centimeters. I discussed marysol case with general surgery on-call who will evaluate patient for incision and drainage of suspected abscess.] Other additions or changes: [None] Lab Data Labs: Laboratory Results - last 24 hr 04/14/23 14:50 WBC 9.8 RBC 4.74 Hgb 15.2 Hct 42.2 MCV 89.0 MCH 32.1 H MCHC 36.0 RDW Std Deviation 37.4 RDW Coeff of Katie 11.6 Plt Count 203 MPV 12.4 H Immature Gran % (Auto) 0.300 Neut % (Auto) 73.5 H Lymph % (Auto) 19.3 Tensas % (Auto) 5.8 Eos % (Auto) 0.6 Baso % (Auto) 0.5 Absolute Neuts (auto) 7.2 Absolute Lymphs (auto) 1.89 Nucleated RBC % 0 Sodium 135 L Potassium 3.7 Chloride 102 Carbon Dioxide 23.0 Anion Gap 10 BUN 9 Creatinine 0.79 Estim Creat Clear Calc 132.95 Est GFR (MDRD) Af Amer 134 Est GFR (MDRD) Non-Af 111 BUN/Creatinine Ratio 11.3 Glucose 300 H Calcium 8.9 Discharge Plan Triage Chief Complaint: Abscess ED Midlevel Provider: Jil Scott ED Provider: Macey Merchant Dx/Rx/DC Orders Primary Care Provider: Humberto Jacskon What to do if you have Problems For any increased pain, shortness of breath, bleeding, nausea or vomiting, chest pain, or any unexpected problems, contact your Primary Care Provider. Call [facility] ([phone]) or report to the closest Emergency Room. Call 911 if necessary. 04/14/23 1706 <Electronically signed by Jil Scott PA> Cosigner Signature (if applicable): 04/14/23 1559 <Electronically signed by Macey Merchant DO> CC: Dr. Humberto Jackson MD ~ Signed [facility] Work Phone: 1(390) 368-868307-07-2023 History and physical note Author Prince Villanueva [facility] April 14, 2023 5:05pm Note Date/Time April 14, 2023 4:55p [facility] Medical Records Department [address] [place] [address] History & Physical Exam 04/14/23 1651 MR#: [id number] Acct: [id number] Name: BIANCA DELAROSA Rep #:[id number] : 1975 47 From: Prince Blanton PCP: Dr. Humberto Jackson MD Status:[facility] Location: [facility] AC-TB A-2 HPI - General General Date of Service: 07/07/23 HPI Narrative BIANCA RUEBENSAAL, is a 47 M who presents to [facility] ER under direction from his PCP after presenting there with complaints of perirectal painfor the past 4 days and feelings of a lump. Patient states that he had a similar episode in September of last year, however, states that this area spontaneously drained by the time he reached medical attention and was managed simply through packing thereafter. He denies any fevers or chills at home. He is a type II diabetic and confesses that his glucose monitor fell off and he hasbeen unable to secure a placement but suspects that his blood sugars have been elevated. Patient's ER work-up is notable for CMP that shows a blood glucose of 300. CBC shows no leukocytosis but left shift is present. CT imaging of the abdomen pelvis was obtained showing a left-sided perirectal abscess. Patient has a family history of colon cancer (diagnosed in his father at the ageof 48) and thus has placed him in a high risk screening cohort such that he has been undergoing colonoscopies every 5 years since the age of 27. He reports that his last colonoscopy was completed last year and was without remarkable findings. [facility] Medical History (Updated 04/14/23 @ 17:[address] Prince Villanueva MD) Abnormal chest CT Acute respiratory failure Acute respiratory failure with hypoxia Anxiety and depression Chronic headache Community acquired pneumonia Diabetes mellitus, type II GERD (gastroesophageal reflux disease) HLD (hyperlipidemia) Multiple thyroid nodules Obesity (BMI 30-39.9) MIKE (obstructive sleep apnea) Pneumonia Restrictive airway disease Shortness of breath Home Medications esomeprazole magnesium 40 mg capsule,delayed release 40 mg PO QHS gerd 10/10/17 [History Last Taken 10/19/18] fenofibrate 50 mg capsule 54 mg PO DAILY cholesterol 10/10/17 [History Last Taken 10/20/18] multivitamin 1 ea PO DAILY supplement 10/10/17 [History Last Taken 10/20/18] atorvastatin 20 mg tablet 20 mg PO DAILY 03/22/18 [History Last Taken 10/20/18] fluoxetine 40 mg capsule 60 mg PO QDAY 03/22/18 [History Last Taken 10/20/18] metformin 500 mg tablet 1,000 mg PO BID diabetes 03/22/18 [History Last Taken 10/20/18] Fish Oil 1,000 mg Capsule 1,000 mg PO BID 10/20/18 [History Last Taken 10/20/18] Magnesium 250 mg PO BID 10/20/18 [History Last Taken 10/20/18] doxepin 10 mg capsule 10 mg PO QHS 10/20/18 [History Last Taken 10/19/18] olanzapine 2.5 mg tablet 2.5 mg PO QHS 10/20/18 [History Last Taken 10/19/18] riboflavin (vitamin B2) 100 mg tablet 100 mg PO BID 10/20/18 [History Last Taken 10/20/18] zonisamide 25 mg capsule 25 mg PO DAILY 10/20/18 [History Last Taken 10/20/18] empagliflozin 25 mg tablet 25 mg PO DAILY #30 tabs 10/22/18 [Rx Last Taken Unknown] Allergy/AdvReac Type Severity Reaction Status Date / Time citalopram Allergy Unknown Unknown Verified 03/06/19 14:55 venlafaxine Allergy Unknown Unknown Verified 03/06/19 14:55 metoclopramide [From Reglan] Allergy weirds me Verified 03/06/19 14:55 out sertraline [From Zoloft] Allergy sexual Verified 03/06/19 14:55 side effects topiramate [From Topamax] Allergy Unknown Verified 03/06/19 14:55 Family History Father Colon cancer at age 53 Heart disease Myocardial infarction Surgical History Hx of appendectomy Hx of tonsillectomy Social History Smoking Status: Never smoker second hand exposure: No alcohol intake: never substance use type: does not use caffeine: Yes what type of physical activity do you participate in: none frequency: does not exercise seatbelt use: always ROS Constitutional Constitutional: Denies fever(s) or night sweats Gastrointestinal Gastrointestinal: Reports constipation; Denies hematochezia or melena Vital Signs Vital Signs Vital Signs: 04/14/23 14:01 Temperature 97.1 F L Temperature Source Temporal Pulse Rate 123 H Respiratory Rate 18 Blood Pressure 144/108 H Blood Pressure Mean 120 Pulse Ox 95 Oxygen Delivery Method Room Air Weight Weight: 287 lb 8 oz Body Mass Index (BMI) 36.9 Physical Exam Const alert and oriented x3 Constitutional Narrative: Mild distress from perirectal discomfort Resp normal respiratory effort GI GI Narrative: Cellulitic changes with underlying fluctuance along patient's left buttock. This is exquisitely tender to palpation. There is no evidence of spontaneous drainage. Results Lab / Micro Data 04/14/23 14:50 04/14/23 14:50 Labs: Laboratory Results - last 24 hr 04/14/23 14:50: WBC 9.8, RBC 4.74, Hgb 15.2, Hct 42.2, MCV 89.0, MCH 32.1 H, MCHC 36.0, RDW Std Deviation 37.4, RDW Coeff of Katie 11.6, Plt Count 203, MPV 12.4 H, Immature Gran % (Auto) 0.300, Neut % (Auto) 73.5 H, Lymph % (Auto) 19.3,Tensas % (Auto) 5.8, Eos % (Auto) 0.6, Baso % (Auto) 0.5, Absolute Neuts (auto) 7.2, Absolute Lymphs (auto) 1.89, Nucleated RBC % 0, Sodium 135 L, Potassium 3.7, Chloride 102, Carbon Dioxide 23.0, Anion Gap 10, BUN 9, Creatinine 0.79, Estim Creat Clear Calc 132.95, Est GFR (MDRD) Af Amer 134, Est GFR (MDRD) Non-Af111, BUN/Creatinine Ratio 11.3, Glucose 300 H, Calcium 8.9 Assessment & Plan Assessment/Plan (1) Perirectal abscess: PLAN: This is a 47-year-old diabetic male who presents with a 96-hour history ofperirectal discomfort and no clinical evidence of a perirectal abscess. There is been no drainage of this abscess and given patient's tenderness on exam I recommend operative incision and drainage. Patient reports that this is his second such episode which raises my suspicion for possible fistula in ano. We will therefore plan to perform an anorectal exam under anesthesia and if a fistulous tract is identified proceed with seton drain placement. And lieu of afistulous tract, we will simply perform incision and drainage with packing. Patient's spouse confirms that she is familiar with this type of wound care. Given patient's comorbidities, I have recommended post procedure inpatient observation with IV antibiotic therapy. Operating room has been notified and wewill proceed emergently for perirectal abscess incision and drainage. Charges/Coding Visit Charges Inpatient E&M: 59320 Init Hosp L2 04/14/23 1705 <Electronically signed by Prince Villanueva MD> Cosigner Signature (if applicable): CC: Dr. Humberto Jackson MD; Dr. Prince Villanueva MD~ Signed [facility] Work Phone: 1(284) 365-417207-07-2023 [facility] Medical Records Department [address] [place] [address] History Physical Exam 04/14/23 1651 MR#: [id number] Acct: [id number] Name: BIANCA DELAROSA Rep #: [id number] : 1975 47 From: Prince Villanueva MD PCP: Dr. Humberto Jackson MD Status:[facility] Location: [place] [address] HPI - General General Date of Service: 04/14/23 HPI Narrative BIANCA DELAROSA, is a 47 M who presents to [facility] ER under direction from his PCP after presenting there with complaints of perirectal pain for the past 4 days and feelings of a lump. Patient states that he had a similar episode in September of last year, however, states that this area spontaneously drained by the time he reached medical attention and was managed simply through packing thereafter. He denies any fevers or chills at home. He is a type II diabetic and confesses that his glucose monitor fell off and he has been unable to secure a placement but suspects that his blood sugars have been elevated. Patient's ER work-up is notable for CMP that shows a blood glucose of 300. CBC shows no leukocytosis but left shift is present. CT imaging of the abdomen pelvis was obtained showing a left-sided perirectal abscess. Patient has a family history of colon cancer (diagnosed in his father at the age of 48) and thus has placed him in a high risk screening cohort such that he has been undergoing colonoscopies every 5 years since the age of 27. He reports that his last colonoscopy was completed last year and was without remarkable findings. [facility] Medical History (Updated 04/14/23 @ 17:[address] Prince Villanueva MD) Abnormal chest CT Acute respiratory failure Acute respiratory failure with hypoxia Anxiety and depression Chronic headache Community acquired pneumonia Diabetes mellitus, type II GERD (gastroesophageal reflux disease) HLD (hyperlipidemia) Multiple thyroid nodules Obesity (BMI 30-39.9) MIKE (obstructive sleep apnea) Pneumonia Restrictive airway disease Shortness of breath Home Medications esomeprazole magnesium 40 mg capsule,delayed release 40 mg PO QHS gerd 10/10/17 [History Last Taken 10/19/18] fenofibrate 50 mg capsule 54 mg PO DAILY cholesterol 10/10/17 [History Last Taken 10/20/18] multivitamin 1 ea PO DAILY supplement 10/10/17 [History Last Taken 10/20/18] atorvastatin 20 mg tablet 20 mg PO DAILY 03/22/18 [History Last Taken 10/20/18] fluoxetine 40 mg capsule 60 mg PO QDAY 03/22/18 [History Last Taken 10/20/18] metformin 500 mg tablet 1,000 mg PO BID diabetes 03/22/18 [History Last Taken 10/20/18] Fish Oil 1,000 mg Capsule 1,000 mg PO BID 10/20/18 [History Last Taken 10/20/18] Magnesium 250 mg PO BID 10/20/18 [History Last Taken 10/20/18] doxepin 10 mg capsule 10 mg PO QHS 10/20/18 [History Last Taken 10/19/18] olanzapine 2.5 mg tablet 2.5 mg PO QHS 10/20/18 [History Last Taken 10/19/18] riboflavin (vitamin B2) 100 mg tablet 100 mg PO BID 10/20/18 [History Last Taken 10/20/18] zonisamide 25 mg capsule 25 mg PO DAILY 10/20/18 [History Last Taken 10/20/18] empagliflozin 25 mg tablet 25 mg PO DAILY #30 tabs 10/22/18 [Rx Last Taken Unknown] Allergy/AdvReac Type Severity Reaction Status Date / Time citalopram Allergy Unknown Unknown Verified 03/06/19 14:55 venlafaxine Allergy Unknown Unknown Verified 03/06/19 14:55 metoclopramide [From Reglan] Allergy weirds me Verified 03/06/19 14:55 out sertraline [From Zoloft] Allergy sexual Verified 03/06/19 14:55 side effects topiramate [From Topamax] Allergy Unknown Verified 03/06/19 14:55 Family History Father Colon cancer at age 53 Heart disease Myocardial infarction Surgical History Hx of appendectomy Hx of tonsillectomy Social History Smoking Status: Never smoker second hand exposure: No alcohol intake: never substance use type: does not use caffeine: Yes what type of physical activity do you participate in: none frequency: does not exercise seatbelt use: always ROS Constitutional Constitutional: Denies fever(s) or night sweats Gastrointestinal Gastrointestinal: Reports constipation; Denies hematochezia or melena Vital Signs Vital Signs Vital Signs: 04/14/23 14:01 Temperature 97.1 F L Temperature Source Temporal Pulse Rate 123 H Respiratory Rate 18 Blood Pressure 144/108 H Blood Pressure Mean 120 Pulse Ox 95 Oxygen Delivery Method Room Air Weight Weight: 287 lb 8 oz Body Mass Index (BMI) 36.9 Physical Exam Const alert and oriented x3 Constitutional Narrative: Mild distress from perirectal discomfort Resp normal respiratory effort GI GI Narrative: Cellulitic (more content not included)...[facility]07-07-2023 Discharge summary Author Jil Scott [facility] April 14, 2023 5:06pm Note Date/Time April 14, 2023 2:10p m [facility] Medical Records Department [address] [place] [address] Emergency Department Summary 04/14/23 MR#: [id number] Acct: [id number] Name: BIANCA DELAROSA Rep #:[id number] : 1975 47 From: Jil CLAY PCP: Dr. Humberto Jackson MD Status:[facility] Location: [facility] AC-TB A-2 HPI <DANNA Welch - Last Filed: 04/14/23 17:06> History of Present Illness Chief Complaint: Abscess Narrative Narrative: 47-year-old male with PMH of DM2 presents with a buttock abscess x4 days. He had an abscess in the same area over 6 months ago that burst spontaneously. Today he was evaluated at his PCPs office and they sent him to the ED. He denies fever or chills. He is on insulin and does not know what his blood sugars have been running this week because his arm sensor fell off. [facility] <DANNA Welch - Last Filed: 04/14/23 17:06> [facility] Medical History (Updated 04/14/23 @ 17:[address] Prince Villanueva MD) Abnormal chest CT Acute respiratory failure Acute respiratory failure with hypoxia Anxiety and depression Chronic headache Community acquired pneumonia Diabetes mellitus, type II GERD (gastroesophageal reflux disease) HLD (hyperlipidemia) Multiple thyroid nodules Obesity (BMI 30-39.9) MIKE (obstructive sleep apnea) Pneumonia Restrictive airway disease Shortness of breath Home Medications esomeprazole magnesium 40 mg capsule,delayed release 40 mg PO QHS gerd 10/10/17 [History Last Taken 10/19/18] fenofibrate 50 mg capsule 54 mg PO DAILY cholesterol 10/10/17 [History Last Taken 10/20/18] multivitamin 1 ea PO DAILY supplement 10/10/17 [History Last Taken 10/20/18] atorvastatin 20 mg tablet 20 mg PO DAILY 03/22/18 [History Last Taken 10/20/18] fluoxetine 40 mg capsule 60 mg PO QDAY 03/22/18 [History Last Taken 10/20/18] metformin 500 mg tablet 1,000 mg PO BID diabetes 03/22/18 [History Last Taken 10/20/18] Fish Oil 1,000 mg Capsule 1,000 mg PO BID 10/20/18 [History Last Taken 10/20/18] Magnesium 250 mg PO BID 10/20/18 [History Last Taken 10/20/18] doxepin 10 mg capsule 10 mg PO QHS 10/20/18 [History Last Taken 10/19/18] olanzapine 2.5 mg tablet 2.5 mg PO QHS 10/20/18 [History Last Taken 10/19/18] riboflavin (vitamin B2) 100 mg tablet 100 mg PO BID 10/20/18 [History Last Taken 10/20/18] zonisamide 25 mg capsule 25 mg PO DAILY 10/20/18 [History Last Taken 10/20/18] empagliflozin 25 mg tablet 25 mg PO DAILY #30 tabs 10/22/18 [Rx Last Taken Unknown] Allergy/AdvReac Type Severity Reaction Status Date / Time citalopram Allergy Unknown Unknown Verified 03/06/19 14:55 venlafaxine Allergy Unknown Unknown Verified 03/06/19 14:55 metoclopramide [From Reglan] Allergy weirds me Verified 03/06/19 14:55 out sertraline [From Zoloft] Allergy sexual Verified 03/06/19 14:55 side effects topiramate [From Topamax] Allergy Unknown Verified 03/06/19 14:55 Family History Father Colon cancer at age 53 Heart disease Myocardial infarction Surgical History Hx of appendectomy Hx of tonsillectomy Social History Smoking Status: Never smoker second hand exposure: No alcohol intake: never substance use type: does not use caffeine: Yes what type of physical activity do you participate in: none frequency: does not exercise seatbelt use: always ROS <DANNA Welch - Last Filed: 04/14/23 17:06> ROS ED ROS Narrative Constitutional: Negative for fever, chills, malaise. GI: Negative for abdominal pain, nausea, vomiting. Skin: Negative for wound. EXAM <DANNA Welch - Last Filed: 04/14/23 17:06> Physical Exam Narrative Exam Narrative: CONST: Patient sitting in no acute distress. EYES: Normal inspection. NECK: Normal inspection. RESP: No respiratory distress, CTAB. CVS: Rapid but regular rhythm, no murmur, no gallop. Rectal: Left perirectal area has tenderness and erythema extending toward the rectum. No induration, no lymphangitis. SKIN: Color normal, no rash, warm, dry, intact. EXTREMITIES: Normal appearance, no pedal edema. NEURO: Oriented x4. PSYCH: Normal affect. Const Vital Signs: 04/14/23 14:01 04/14/23 16:13 04/14/23 17:03 Temperature 97.1 F L 99.7 F H 99.8 F H Temperature Source Temporal Temporal Temporal Pulse Rate 123 H 99 Respiratory Rate 18 16 16 Blood Pressure 144/108 H 136/86 H 117/81 H Blood Pressure Mean 120 102 93 Blood Pressure Source Monitor Blood Pressure Position Supine Blood Pressure Location Right Arm Pulse Ox 95 91 91 Oxygen Delivery Method Room Air Room Air Room Air <Dr. Remus Ungur, DO - Last Filed: 04/14/23 15:59> Physical Exam Const Vital Signs: 04/14/23 14:01 04/14/23 16:13 04/14/23 17:03 Temperature 97.1 F L 99.7 F H 99.8 F H Temperature Source Temporal Temporal Temporal Pulse Rate 123 H 99 Respiratory Rate 18 16 16 Blood Pressure 144/108 H 136/86 H 117/81 H Blood Pressure Mean 120 102 93 Blood Pressure Source Monitor Blood Pressure Position Supine Blood Pressure Location Right Arm Pulse Ox 95 91 91 Oxygen Delivery Method Room Air Room Air Room Air MDM <DANNA Welch - Last Filed: 04/14/23 17:06> [facility] MDM Narrative Medical decision making narrative: History gathered from: Patient and spouse Patient has a perirectal abscess x4 days. He appears well and nontoxic. Heart rate in the 120s with otherwise normal vital signs. There is an area of erythema and tenderness in the left perirectal region but I cannot feel a discrete abscess. I am concerned there could be extension into the rectum with its proximity. With his history of diabetes and tachycardia plan will be for labs and CT of the pelvis to evaluate. He has a normal white count at 9.8. Glucose is 300. CT shows a Francis rectal abscess somewhere around 2 x 4 cm. Theon-call general surgeon, Dr. Villanueva, took the patient to the OR for drainage. Hewas given a dose of IV Zosyn in the ED. Differential: Cutaneous abscess versus deep perirectal abscess Consults: General surgery I have personally performed a face to face assessment of the patient and have reviewed the RICHAR Note. I performed a substantive portion of the visit including all aspects of the following. My bland findings include: History is [patient presents with pain and fullness near her rectum x4 days. He denies fever although he has had some sweats. Patient states that he had a similar episode about 6 months ago where he had a spontaneous draining abscess that his primary care physician expressed pus from. Patient has not had any issues since. He has not had any surgical intervention.] Exam is [HEENT-normocephalic atraumatic Cardiovascular-heart regular rate and rhythm without murmur Lungs-clear to auscultation Abdomen-soft and nontender to palpation. Normoactive bowel sounds. Rectal exam-patient has soft tissue swelling and some induration along the medial aspect of the left buttock near the rectum that is tender to palpation into a near the perineum. No fluctuance noted. No discrete abscess palpated.] Medical Decision Making [I my interpretation of the CT scan of the pelvis with IV contrast it appears patient has a soft tissue abscess measuring approximately 4 cm x 2 and half centimeters. I discussed marysol case with general surgery on-call who will evaluate patient for incision and drainage of suspected abscess.] Other additions or changes: [None] Lab Data Attestation: I reviewed the patient's lab results. Labs: Laboratory Results - last 24 hr 04/14/23 14:50 WBC 9.8 RBC 4.74 Hgb 15.2 Hct 42.2 MCV 89.0 MCH 32.1 H MCHC 36.0 RDW Std Deviation 37.4 RDW Coeff of Katie 11.6 Plt Count 203 MPV 12.4 H Immature Gran % (Auto) 0.300 Neut % (Auto) 73.5 H Lymph % (Auto) 19.3 Tensas % (Auto) 5.8 Eos % (Auto) 0.6 Baso % (Auto) 0.5 Absolute Neuts (auto) 7.2 Absolute Lymphs (auto) 1.89 Nucleated RBC % 0 Sodium 135 L Potassium 3.7 Chloride 102 Carbon Dioxide 23.0 Anion Gap 10 BUN 9 Creatinine 0.79 Estim Creat Clear Calc 132.95 Est GFR (MDRD) Af Amer 134 Est GFR (MDRD) Non-Af 111 BUN/Creatinine Ratio 11.3 Glucose 300 H Calcium 8.9 <Dr. Macey Merchant, DO - Last Filed: 04/14/23 15:59> [facility] Narrative Medical decision making narrative: History gathered from: Patient and spouse Patient has a perirectal abscess x4 days. He appears well and nontoxic. Heart rate in the 120s with otherwise normal vital signs. There is an area of erythema and tenderness in the left perirectal region but I cannot feel a discrete abscess. I am concerned there could be extension into the rectum with its proximity. With his history of diabetes and tachycardia plan will be for labs and CT of the pelvis to evaluate. I have personally performed a face to face assessment of the patient and have reviewed the RICHAR Note. I performed a substantive portion of the visit including all aspects of the following. My bland findings include: History is [patient presents with pain and fullness near her rectum x4 days. He denies fever although he has had some sweats. Patient states that he had a similar episode about 6 months ago where he had a spontaneous draining abscess that his primary care physician expressed pus from. Patient has not had any issues since. He has not had any surgical intervention.] Exam is [HEENT-normocephalic atraumatic Cardiovascular-heart regular rate and rhythm without murmur Lungs-clear to auscultation Abdomen-soft and nontender to palpation. Normoactive bowel sounds. Rectal exam-patient has soft tissue swelling and some induration along the medial aspect of the left buttock near the rectum that is tender to palpation into a near the perineum. No fluctuance noted. No discrete abscess palpated.] Medical Decision Making [I my interpretation of the CT scan of the pelvis with IV contrast it appears patient has a soft tissue abscess measuring approximately 4 cm x 2 and half centimeters. I discussed marysol case with general surgery on-call who will evaluate patient for incision and drainage of suspected abscess.] Other additions or changes: [None] Lab Data Labs: Laboratory Results - last 24 hr 04/14/23 14:50 WBC 9.8 RBC 4.74 Hgb 15.2 Hct 42.2 MCV 89.0 MCH 32.1 H MCHC 36.0 RDW Std Deviation 37.4 RDW Coeff of Katie 11.6 Plt Count 203 MPV 12.4 H Immature Gran % (Auto) 0.300 Neut % (Auto) 73.5 H Lymph % (Auto) 19.3 Tensas % (Auto) 5.8 Eos % (Auto) 0.6 Baso % (Auto) 0.5 Absolute Neuts (auto) 7.2 Absolute Lymphs (auto) 1.89 Nucleated RBC % 0 Sodium 135 L Potassium 3.7 Chloride 102 Carbon Dioxide 23.0 Anion Gap 10 BUN 9 Creatinine 0.79 Estim Creat Clear Calc 132.95 Est GFR (MDRD) Af Amer 134 Est GFR (MDRD) Non-Af 111 BUN/Creatinine Ratio 11.3 Glucose 300 H Calcium 8.9 Discharge Plan Triage Chief Complaint: Abscess ED Midlevel Provider: Jil Scott ED Provider: Macey Merchant Dx/Rx/DC Orders Primary Care Provider: Humberto Jackson What to do if you have Problems For any increased pain, shortness of breath, bleeding, nausea or vomiting, chest pain, or any unexpected problems, contact your Primary Care Provider. Call [facility] ([phone]) or report to the closest Emergency Room. Call 911 if necessary. 04/14/23 1706 <Electronically signed by Jil CLAY> Cosigner Signature (if applicable): 04/14/23 1559 <Electronically signed by Macey Merchant DO> CC: Dr. Humberto Jackson MD ~ Signed [facility] Work Phone: 1(960) 796-953807-07-2023 History of Present illness Narrative* Dominik Kelley, TAX ACCOUNTANT.CIRCUIT COURT CLERK - 04/14/2023 1:45 PM EDT Chief Complaint Patient presents with: Follow Up: Cyst on buttocks HPI Bianac Delarosa is a 47 year old male who presents here today for Above Complaints.. Patient presents with cyst on buttock. Patient reports having a similar issue about 8 months ago which was drained, treated with antibiotics and healed. Patient reports the pain is moderate to severeand located in the same area as his last cyst. Past medical history, appointments, medications, allergies reviewed. Previous Medical History PAST MEDICAL HISTORY Diagnosis Date Agitation 03/31/2014 Allergic rhinitis 03/31/2014 Allergy-induced asthma 03/31/2014 Mild intermitant Asthma Attention 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 12/07/2022 Substance agreement signed 12/2022, Tox screen done 12/2022 Current use of proton pump inhibitor 09/26/2018 Diabetic eye exam (HCC) 01/27/2017 Last eye exam: 03/05/2019 Diverticulosis 03/31/2014 Dyslipidemia 03/31/2014 Low HDL, High Trigs Elevated antinuclear antibody (JALEEL) level 03/31/2014 Family history of malignant neoplasm of gastrointestinal tract 03/31/2014 ISABELLA (generalized anxiety disorder) 06/22/2020 GERD without esophagitis 09/26/2018 Hiatal hernia 03/31/2014 Hx of colonic polyp 03/31/2014 Needs next colonoscopy 08/2022 Lump 11/16/2019 benign left palm Major depressive disorder with single episode, 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 Lazaro 03/2018 Multiple thyroid nodules 02/27/2018 US 03/2020 per radiology no further f/u needed.. All benign Biopsy 03/[address] Lazaro. Benign. Obesity, Class II, BMI 35-39.9 10/21/2022 Obstructive sleep apnea syndrome 01/27/2017 On CPAP Other joint derangement, not elsewhere classified, lower leg 03/25/2013 Primary insomnia 07/28/2020 QT prolongation 04/20/2021 Seen [facility] 04/19/2021: Retsof to be benign and related to anti- depressants. No changes needed. TMJ (temporomandibular joint disorder) 03/31/2014 Right side Type 2 diabetes mellitus without complication, without long-term current use of insulin ([facility]) 01/19/2017 Well adult exam 12/17/2014 Last done:11/16/2019 Previous Surgical History PAST SURGICAL HISTORY Procedure Laterality Date APPENDECTOMY HX 2003 ARTHROTOMY W/MENISCUS REPAIR KNEE Right 04/2021 COLONOSCOPY 06/2012 Dr. Corrigan +polyp, repeat 5 yrs COLONOSCOPY 08/30/2022 repeat in 5 years COLONOSCOPY FLX DX W/COLLJ SPEC WHEN PFRMD 08/16/2017 Colonoscopy, repeat 5 yrs, Dr. Bliss PAST SURGICAL HISTORY OF 2009 benign cysts: 1 from head and 2 from neck TONSILLECTOMY & ADENOIDECTOMY AGE 11/> 1979 TONSILLECTOMY HX Family History FAMILY HISTORY Problem Relation Age of Onset Coronary Artery Disease Maternal Grandmother 60's Stroke Maternal Grandfather Colon Cancer Father 52 Coronary Artery Disease Father Colon Cancer Paternal Uncle 49 Coronary Artery Disease Mother 60's Hypertension Mother No Known Problems Brother No Known Problems Brother No Known Problems Brother Alzheimer's Disease No Family History Prostate Cancer No Family History Breast Cancer No Family History Hyperlipidemia No Family History Kidney Disease No Family History Seizures No Family History Thyroid No Family History Patient Allergies ALLERGIES Allergen Reactions Topamax [Topiramate] Mental Status Change Unable to remember anything Celexa [Citalopram * Other: See Comments uneffective Effexor [Venlafaxin* Other: See Comments Sexual side affect Reglan [Metoclopram* Unknown Zoloft [Sertraline * Other: See Comments drowsy Current Medications Current Outpatient Medications on File Prior to Visit Medication Sig methylphenidate LA (RITALIN LA) 10 mg biphasic capsule Take 1 capsule by mouth once daily for 30 days. Insulin Wykoff, Disposable, (DROPLET PEN NEEDLE) 31 gauge x 3/16 Use 2 PEN NEEDLES to inject MEDICATION subcutaneously daily insulin lispro protamine-insulin lispro (HumaLOG 75/25) pen Inject subcutaneously 35 units breakfast and 35 units dinner Fenofibrate (LOFIBRA) 54 mg tablet Take 1 tablet by mouth once daily. atorvastatin (LIPITOR) 20 mg tablet Take 1 tablet by mouth once daily. zonisamide (ZONEGRAN) 25 mg capsule Take 1 capsule by mouth once daily. busPIRone (BUSPAR) 15 mg tablet Take one tab by mouth twice a day. DULoxetine (CYMBALTA) 60 mg capsule Take 1 capsule by mouth once daily. OLANZapine (ZYPREXA) 5 mg tablet Take 1 tablet by mouth daily at bedtime. doxepin capsule 10 mg Take 1 capsule by mouth daily at bedtime. Blood-Glucose Sensor (FREESTYLE EVERT 3 SENSOR) agnes Use one sensor every 14 day, IDDM, E11.9 metFORMIN (GLUCOPHAGE) 500 mg tablet Take 2 tablets by mouth twice daily with meals. albuterol HFA (PROAIR HFA) 90 mcg/actuation inhaler Inhale 2 Puffs as instructed every 4 hours as needed for wheezing/shortness of breath. riboflavin, vitamin B2, (VITAMIN B-2) 100 mg tab Take 2 tablets by mouth twice daily. omega-3 fatty acids 1,000 mg cap Take 1 capsule by mouth twice daily. Magnesium Oxide 250 mg magnesium tab Take 1 tablet by mouth twice daily. CPAP AUTO PAP 5-20 cmH20, CHIN STRAP, heated HUMIDITY, mask of patient's choice. LIFETIME SUPPLIES.SD Card. Download to [employer]. multivitamin tablet Take 1 tablet by mouth once daily. fluticasone (FLONASE) 50 mcg/actuation nasal spray Use 1 [place] in each nostril once daily. Rinse mouth after use. esomeprazole (NEXIUM) 40 mg capsule Take 40 mg by mouth once daily. No current facility-administered medications on file prior to visit. Social History Social History Tobacco Use Smoking status: Never Smokeless tobacco: Never Vaping Use Vaping Use: Never used Substance Use Topics Alcohol use: Yes Comment: Rarely Drug use: No Review of Symptoms REVIEW OF SYSTEMS SEE HPI EXAM: BP 132/88 Pulse 114 Resp 16 Wt 130.2 kg (287 lb) BMI 36.85 kg/m General Appearance: PHYSICAL EXAMINATION: General appearance: Well appearing, alert, in no acute distress, well-hydrated, well nourished. Skin: Positives: Large hard tender area palpated to interior aspect of patient's left buttock extending from anus to just behind the scrotum. Area is red, swollen and tender with palpation. Health Maintenance List HBA1C due on 04/28/2023 URINE ALBUMIN:CREATININE RATIO due on 06/04/2023 DIABETIC FOOT EXAM due on 06/04/2023 INFLUENZA(1) due on 06/09/2023 LDL CHOLESTEROL due on 12/08/2023 DILATED RETINAL EXAM due on 12/10/2023 ANNUAL PCP TEAM CHRONIC DISEASE VISIT due on 04/10/2024 COLORECTAL CANCER SCREENING due on 08/30/2027 DTAP,TDAP,TD(3 - Td or Tdap) due on 04/13/2031 PNEUMOCOCCAL(3 - PPSV23 if available, else PCV20) due on 12/14/2039 HEPATITIS B Completed COVID-19 VACCINE Completed SPIROMETRY Discontinued HEPATITIS C SCREENING Discontinued HIV SCREENING Discontinued ASSESSMENT/PLAN: 1. Abscess of buttock - ICD9: 682.5, ICD10: L02.31 - Patient sent to ER for possible I&D due to location and abrupt onset of cyst. Dominik Kelley APRN.CIRCUIT COURT CLERK documented in this encounterMer[facility] Instructions* Patient Instructions* Kenyatta Castaneda PA-C - 04/10/2023 8:31 AM EDT Take a Vitamin B complex (with atleast 30mg of B6) 3 times a day for nocturnal leg cramps. documented in this encounterMer[facility] History of Present illness Narrative* Kenyatta Castaneda PA-C - 04/10/2023 8:23 AM EDT Chief Complaint Patient presents with: Recheck: 4 month HPI Bianca Delarosa is a 47 year old male who presents here today for Chronic Medical Conditions/medcheck Patient with hx of DM2, hyperlipidemia, insomnia, migraines, MIKE, GERD, ADHD, ISABELLA, depression, and those as below. Overall patient continues to do welll with current management for his adhd, anxiety and depression. Is seeing endo for diabetes. A1c still 11. Has follow up 05/05/23. Past medical history, appointments, medications, allergies reviewed. Previous Medical History PAST MEDICAL HISTORY Diagnosis Date Agitation 03/31/2014 Allergic rhinitis 03/31/2014 Allergy-induced asthma 03/31/2014 Mild intermitant Asthma Attention 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 12/07/2022 Substance agreement signed 12/2022, Tox screen done 12/2022 Current use of proton pump inhibitor 09/26/2018 Diabetic eye exam (HCC) 01/27/2017 Last eye exam: 03/05/2019 Diverticulosis 03/31/2014 Dyslipidemia 03/31/2014 Low HDL, High Trigs Elevated antinuclear antibody (JALEEL) level 03/31/2014 Family history of malignant neoplasm of gastrointestinal tract 03/31/2014 ISABELLA (generalized anxiety disorder) 06/22/2020 GERD without esophagitis 09/26/2018 Hiatal hernia 03/31/2014 Hx of colonic polyp 03/31/2014 Needs next colonoscopy 08/2022 Lump 11/16/2019 benign left palm Major depressive disorder with single episode, 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 Lazaro 03/2018 Multiple thyroid nodules 02/27/2018 US 03/2020 per radiology no further f/u needed.. All benign Biopsy 03/[address] Lazaro. Benign. Obesity, Class II, BMI 35-39.9 10/21/2022 Obstructive sleep apnea syndrome 01/27/2017 On CPAP Other joint derangement, not elsewhere classified, lower leg 03/25/2013 Primary insomnia 07/28/2020 QT prolongation 04/20/[address] [facility] 04/19/2021: Retsof to be benign and related to anti- depressants. No changes needed. TMJ (temporomandibular joint disorder) 03/31/2014 Right side Type 2 diabetes mellitus without complication, without long-term current use of insulin (HCC) 01/19/2017 Well adult exam 12/17/2014 Last done:11/16/2019 Previous Surgical History PAST SURGICAL HISTORY Procedure Laterality Date APPENDECTOMY HX 2003 ARTHROTOMY W/MENISCUS REPAIR KNEE Right 04/2021 COLONOSCOPY 06/2012 Dr. Corrigan +polyp, repeat 5 yrs COLONOSCOPY 08/30/2022 repeat in 5 years COLONOSCOPY FLX DX W/COLLJ SPEC WHEN PFRMD 08/16/2017 Colonoscopy, repeat 5 yrs, Dr. Bliss PAST SURGICAL HISTORY OF 2009 benign cysts: 1 from head and 2 from neck TONSILLECTOMY & ADENOIDECTOMY AGE 11/> 1979 TONSILLECTOMY HX Family History FAMILY HISTORY Problem Relation Age of Onset Coronary Artery Disease Maternal Grandmother 60's Stroke Maternal Grandfather Colon Cancer Father 52 Coronary Artery Disease Father Colon Cancer Paternal Uncle 49 Coronary Artery Disease Mother 60's Hypertension Mother No Known Problems Brother No Known Problems Brother No Known Problems Brother Alzheimer's Disease No Family History Prostate Cancer No Family History Breast Cancer No Family History Hyperlipidemia No Family History Kidney Disease No Family History Seizures No Family History Thyroid No Family History Patient Allergies ALLERGIES Allergen Reactions Topamax [Topiramate] Mental Status Change Unable to remember anything Celexa [Citalopram * Other: See Comments uneffective Effexor [Venlafaxin* Other: See Comments Sexual side affect Reglan [Metoclopram* Unknown Zoloft [Sertraline * Other: See Comments drowsy Current Medications Current Outpatient Medications on File Prior to Visit Medication Sig methylphenidate LA (RITALIN LA) 10 mg biphasic capsule Take 1 capsule by mouth once daily for 30 days. Insulin Wykoff, Disposable, (DROPLET PEN NEEDLE) 31 gauge x 3/16 Use 2 PEN NEEDLES to inject MEDICATION subcutaneously daily insulin lispro protamine-insulin lispro (HumaLOG 75/25) pen Inject subcutaneously 35 units breakfast and 35 units dinner Fenofibrate (LOFIBRA) 54 mg tablet Take 1 tablet by mouth once daily. atorvastatin (LIPITOR) 20 mg tablet Take 1 tablet by mouth once daily. zonisamide (ZONEGRAN) 25 mg capsule Take 1 capsule by mouth once daily. busPIRone (BUSPAR) 15 mg tablet Take one tab by mouth twice a day. DULoxetine (CYMBALTA) 60 mg capsule Take 1 capsule by mouth once daily. OLANZapine (ZYPREXA) 5 mg tablet Take 1 tablet by mouth daily at bedtime. doxepin capsule 10 mg Take 1 capsule by mouth daily at bedtime. Blood-Glucose Sensor (FREESTYLE EVERT 3 SENSOR) agnes Use one sensor every 14 day, IDDM, E11.9 metFORMIN (GLUCOPHAGE) 500 mg tablet Take 2 tablets by mouth twice daily with meals. albuterol HFA (PROAIR HFA) 90 mcg/actuation inhaler Inhale 2 Puffs as instructed every 4 hours as needed for wheezing/shortness of breath. riboflavin, vitamin B2, (VITAMIN B-2) 100 mg tab Take 2 tablets by mouth twice daily. omega-3 fatty acids 1,000 mg cap Take 1 capsule by mouth twice daily. Magnesium Oxide 250 mg magnesium tab Take 1 tablet by mouth twice daily. multivitamin tablet Take 1 tablet by mouth once daily. fluticasone (FLONASE) 50 mcg/actuation nasal spray Use 1 [place] in each nostril once daily. Rinse mouth after use. esomeprazole (NEXIUM) 40 mg capsule Take 40 mg by mouth once daily. CPAP AUTO PAP 5-20 cmH20, CHIN STRAP, heated HUMIDITY, mask of patient's choice. LIFETIME SUPPLIES.SD Card. Download to [employer]. No current facility-administered medications on file prior to visit. Social History Social History Tobacco Use Smoking status: Never Smokeless tobacco: Never Vaping Use Vaping Use: Never used Substance Use Topics Alcohol use: Yes Comment: Rarely Drug use: No Review of Symptoms REVIEW OF SYSTEMS GENERAL: No weight loss, malaise or fevers NECK: Negative for lumps, goiter, pain and significant neck swelling RESPIRATORY: Negative for cough, hemoptysis, wheezing, COPD, dyspnea or shortness of breath CARDIOVASCULAR: Negative for chest pain, leg swelling, hypertension, CHF or palpitations NEURO: No history of headaches, syncope, paralysis, seizures or tremors EXAM: BP 136/82 (BP Site: Right Arm, BP Position: Sitting, BP Cuff Size: Large Adult) Pulse 96 Temp 36.5 C (97.7 F) Resp 18 Wt 130.6 kg (288 lb) BMI 36.98 kg/m General Appearance: Well appearing, alert, in no acute distress, well-hydrated, well nourished.. Neck: Supple, no adenopathy; thyroid symmetric, normal size, no bruits. Lungs: Lungs clear to auscultation. No wheezing, rhonchi, rales.. Heart: RRR without murmur, gallop, or rubs. No ectopy. Extremities: No deformities, edema, skin discoloration, clubbing or cyanosis. Good capillary refill. . Peripheral Pulses: Normal. Health Maintenance List HBA1C due on 04/28/2023 URINE ALBUMIN:CREATININE RATIO due on 06/04/2023 DIABETIC FOOT EXAM due on 06/04/2023 INFLUENZA(1) due on 06/09/2023 LDL CHOLESTEROL due on 12/08/2023 DILATED RETINAL EXAM due on 12/10/2023 ANNUAL PCP TEAM CHRONIC DISEASE VISIT due on 01/10/2024 COLORECTAL CANCER SCREENING due on 08/30/2027 DTAP,TDAP,TD(3 - Td or Tdap) due on 04/13/2031 PNEUMOCOCCAL(3 - PPSV23 if available, else PCV20) due on 12/14/2039 HEPATITIS B Completed COVID-19 VACCINE Completed SPIROMETRY Discontinued HEPATITIS C SCREENING Discontinued HIV SCREENING Discontinued Data reviewed ASSESSMENT/PLAN: 1. Migraine without aura and without status migrainosus, not intractable - ICD9: 346.10, ICD10: G43.009 (primary diagnosis) stable - COMP METABOLIC PANEL 2. Type 2 diabetes mellitus without complication, without long-term current use of insulin (HCC) - ICD9: 250.00, ICD10: E11.9 - Uncontrolled Cont with endo - URINALYSIS, WITH MICROSCOPIC - ALBUMIN/CREAT RATIO RND UR - COMP METABOLIC PANEL - CBC + DIFF 3. Dyslipidemia - ICD9: 272.4, ICD10: E78.5 Check labs at next visit - LIPID PANEL, NONFASTING 4. Attention 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 - ICD9: 314.00, ICD10: F98.8 Improved. Cont current dose 5. Mood disorder (HCC) - ICD9: 296.90, ICD10: F39 Stable 6. ISABELLA (generalized anxiety disorder) - ICD9: 300.02, ICD10: F41.1 Stable. Kenyatta Castaneda PA-C documented in this encounterMercy Health St. [facility]06-19-2023 Miscellaneous Notes* Telephone Encounter - Humberto Jackson MD - 03/27/2023 10:24 PM EDT The following approved medication requests have been transmitted electronically. Requested Prescriptions Signed Prescriptions Disp Refills methylphenidate LA (RITALIN LA) 10 mg biphasic capsule 30 capsule 0 Sig: Take 1 capsule by mouth once daily for 30 days. Authorizing Provider: HUMBERTO JACKSON MD PDMP website checked and validated. All prescriptions have been APPROPRIATELY filled. No suspiciousactivity was identified. 03/27/2023 by Humberto Jackson MD * Telephone Encounter - Carmelo Lopez LPN - 03/27/2023 12:56 PM EDT Last refill 01/09/23 Qty: 30 with 0 refills JULIO 01/09/23 NOV 04/10/23 Carmelo Lopez LPN documented in this encounterMer[facility]06-07-2023 Miscellaneous Notes* Telephone Encounter - Janel Dumont RN - 03/15/2023 8:37 AM EDT Requester: Pharmacy Last Visit in Endocrinology: Provider name: Torres Monaco CNP , Date 01/27/2023 Next Scheduled Appt in Endo: 03/14/2023 Last Refill: 06/07/2022 Number of Refills given: 3 Requested Prescriptions Pending Prescriptions Disp Refills Insulin Wykoff, Disposable, (DROPLET PEN NEEDLE) 31 gauge x 3/16 [Pharmacy Med Name: DROPLET PEN NEEDLE 31GX3/16] 100 Each 3 Sig: Use 2 PEN NEEDLES to inject MEDICATION subcutaneously daily Please review and advise. Janel Dumont RN documented in this encounterMercy Health St[facility]04-21-2023 Instructions* Patient Instructions* Torres Monaco APRN.CHRISTOPHER - 01/27/2023 4:01 PM EDT Continue metformin 2. Humalog 75/25: Breakfast 30 units Dinner 30 units After a few days increase again to: Breakfast 35 units Dinner 35 units 3. Let me know how things are going in 2 wks. 4. Follow up in 3 months. Torres Monaco, MSN, TAX ACCOUNTANT, MANAGER DISASTER RECOVERY-C, CDE Endocrinology [facility]/[address] [place] [address] Fax: documented in this encounterMercy Health St. [facility]04-21-2023 Procedure note* Marlin Carey MA - 01/27/2023 3:53 PM EDTProcedure(s): EXTERNAL HORSE WRANGLER, CGM SYS Images from the original note were not included. documented in this encounterMercy Health St[facility]04-21-2023 History of Present illness Narrative* Torres Monaco APRN.CHRISTOPHER - 01/27/2023 3:45 PM EDT Reason for Consultation: DM Type 2 Referring Physician: No referring provider defined for this encounter. HISTORY OF PRESENT ILLNESS; Mr. Delarosa is a 47 year old male presenting for follow up regarding DM Type 2. He was initiallydiagnosed with diabetes in 2019. He does not have a family history of diabetes mellitus in his family . 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 Changed to mixed insulin to alleviate the issue. States he is allowed to use a CGM and have his phone--[employer] 3 rx sent at the last visit which he has been using He is under the care of cardiology, ortho. His current diabetes regimen is: Humalog 75/25: 25 units breakfast and dinner Metformin 500 mg 2 tabs BID Rybelsus 7 mg daily --never started; states it will be $900 Previous DM medication: Jardiance--cost Ozempic-cost and stomach upset Lantus --changed to mixed insulin Glimepiride--insulin Regarding symptoms of hyperglycemia, he is not experiencing polydipsia but denies polyuria, weight loss, blurry vision. Exercise: limited due to torn meniscus Bianca is checking his blood glucose with Evert 3 He did does bring a logbook today for review: Evert 13 day download (01/14/23 to 01/27/23) In range 0% High 2% Very high 98% Low/very low 0% CGM active 43% Avg 361 BG is globally elevated. Hypoglycemia frequency: denies Hypoglycemia awareness: Yes Overall, the patient has no acute complaints at this time. PAST MEDICAL HISTORY Diagnosis Date Agitation 03/31/2014 Allergic rhinitis 03/31/2014 Allergy-induced asthma 03/31/2014 Mild intermitant Asthma Attention 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 12/07/2022 Substance agreement signed 12/2022, Tox screen done 12/2022 Current use of proton pump inhibitor 09/26/2018 Diabetic eye exam (HCC) 01/27/2017 Last eye exam: 03/05/2019 Diverticulosis 03/31/2014 Dyslipidemia 03/31/2014 Low HDL, High Trigs Elevated antinuclear antibody (JALEEL) level 03/31/2014 Family history of malignant neoplasm of gastrointestinal tract 03/31/2014 ISABELLA (generalized anxiety disorder) 06/22/2020 GERD without esophagitis 09/26/2018 Hiatal hernia 03/31/2014 Hx of colonic polyp 03/31/2014 Needs next colonoscopy 08/2022 Lump 11/16/2019 benign left palm Major depressive disorder with single episode, 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 Lazaro 03/2018 Multiple thyroid nodules 02/27/2018 US 03/2020 per radiology no further f/u needed.. All benign Biopsy 03/[address] Lazaro. Benign. Obesity, Class II, BMI 35-39.9 10/21/2022 Obstructive sleep apnea syndrome 01/27/2017 On CPAP Other joint derangement, not elsewhere classified, lower leg 03/25/2013 Primary insomnia 07/28/2020 QT prolongation 04/20/2021 Seen [facility] 04/19/2021: Retsof to be benign and related to anti- depressants. No changes needed. TMJ (temporomandibular joint disorder) 03/31/2014 Right side Type 2 diabetes mellitus without complication, without long-term current use of insulin (HCC) 01/19/2017 Well adult exam 12/17/2014 Last done:11/16/2019 PAST SURGICAL HISTORY Procedure Laterality Date APPENDECTOMY HX 2004 ARTHROTOMY W/MENISCUS REPAIR KNEE Right 04/2021 COLONOSCOPY 06/2012 Dr. Corrigan +polyp, repeat 5 yrs COLONOSCOPY 08/30/2022 repeat in 5 years COLONOSCOPY FLX DX W/COLLJ SPEC WHEN PFRMD 08/16/2017 Colonoscopy, repeat 5 yrs, Dr. Bliss PAST SURGICAL HISTORY OF 2008 benign cysts: 1 from head and 2 from neck TONSILLECTOMY & ADENOIDECTOMY AGE 11/> 1979 TONSILLECTOMY HX FAMILY HISTORY Problem Relation Age of Onset Coronary Artery Disease Maternal Grandmother 60's Stroke Maternal Grandfather Colon Cancer Father 52 Coronary Artery Disease Father Colon Cancer Paternal Uncle 49 Coronary Artery Disease Mother 60's Hypertension Mother No Known Problems Brother No Known Problems Brother No Known Problems Brother Alzheimer's Disease No Family History Prostate Cancer No Family History Breast Cancer No Family History Hyperlipidemia No Family History Kidney Disease No Family History Seizures No Family History Thyroid No Family History Social History Tobacco Use Smoking status: Never Smokeless tobacco: Never Vaping Use Vaping Use: Never used Substance Use Topics Alcohol use: Yes Comment: Rarely Drug use: No Current Outpatient Medications Medication Sig Dispense Refill methylphenidate LA (RITALIN LA) 10 mg 24 hr capsule Take 1 capsule by mouth once daily for 30 days.30 capsule 0 Fenofibrate (LOFIBRA) 54 mg tablet Take 1 tablet by mouth once daily. 90 tablet 1 atorvastatin (LIPITOR) 20 mg tablet Take 1 tablet by mouth once daily. 90 tablet 1 zonisamide (ZONEGRAN) 25 mg capsule Take 1 capsule by mouth once daily. 90 capsule 1 busPIRone (BUSPAR) 15 mg tablet Take one tab by mouth twice a day. 180 tablet 1 DULoxetine (CYMBALTA) 60 mg capsule Take 1 capsule by mouth once daily. 90 capsule 1 OLANZapine (ZYPREXA) 5 mg tablet Take 1 tablet by mouth daily at bedtime. 90 tablet 1 doxepin capsule 10 mg Take 1 capsule by mouth daily at bedtime. 90 capsule 1 Blood-Glucose Sensor (FREESTYLE EVERT 3 SENSOR) agnes Use one sensor every 14 day, IDDM, E11.9 2 Each 11 metFORMIN (GLUCOPHAGE) 500 mg tablet Take 2 tablets by mouth twice daily with meals. 360 tablet 3 insulin lispro protamine-insulin lispro (HumaLOG 75/25) pen Inject subcutaneously 25 units breakfast and 25 units dinner 15 mL 5 semaglutide (RYBELSUS) 3 mg tablet Take 1 tablet by mouth daily before breakfast. X 30 days 30 tablet 0 semaglutide (RYBELSUS) 7 mg tablet Take 1 tablet (7 mg) by mouth daily before breakfast. (Start after having taken 3mg daily x 30 days) 30 tablet 5 Insulin Wykoff, Disposable, (BD ULTRAFINE III MINI PEN) 31 gauge x 3/16 Use two pen needles [id number] Each 3 albuterol HFA (PROAIR HFA) 90 mcg/actuation inhaler Inhale 2 Puffs as instructed every 4 hours as needed for wheezing/shortness of breath. 1 Inhaler 1 riboflavin, vitamin B2, (VITAMIN B-2) 100 mg tab Take 2 tablets by mouth twice daily. 360 tablet 1 omega-3 fatty acids 1,000 mg cap Take 1 capsule by mouth twice daily. 180 capsule 3 Magnesium Oxide 250 mg magnesium tab Take 1 tablet by mouth twice daily. 180 tablet 3 multivitamin tablet Take 1 tablet by mouth once daily. 0 fluticasone (FLONASE) 50 mcg/actuation nasal spray Use 1 [place] in each nostril once daily. Rinse mouth after use. 1 Bottle 11 esomeprazole (NEXIUM) 40 mg capsule Take 40 mg by mouth once daily. aspirin, enteric coated (ASPIRIN, ENTERIC COATED) 81 mg EC tablet Take 1 tablet by mouth once daily. (Patient not taking: Reported on 01/27/2023) CPAP AUTO PAP 5-20 cmH20, CHIN STRAP, heated HUMIDITY, mask of patient's choice. LIFETIME SUPPLIES.SD Card. Download to [employer]. (Patient not taking: Reported on 01/27/2023) 1 Device 99 No current facility-administered medications for this visit. Allergies As of Date: 01/27/2023 Allergen Noted Reaction TOPAMAX [TOPIRAMATE] 02/04/2014 Mental Status Change CELEXA [CITALOPRAM HYDROBROMIDE] 10/22/2014 Other: See Comments EFFEXOR [VENLAFAXINE ANALOGUES] 10/22/2014 Other: See Comments REGLAN [METOCLOPRAMIDE HCL] 01/24/2007 Unknown ZOLOFT [SERTRALINE HCL] 10/22/2014 Other: See Comments Fully Assessed 01/27/2023 REVIEW OF SYSTEMS: Review of Systems Respiratory: Negative for difficulty breathing. Cardiovascular: Negative for chest pain. Gastrointestinal: Negative for nausea, vomiting, diarrhea and constipation. PHYSICAL EXAM: BP 142/85 Pulse 102 Ht 188 cm (6' 2) Wt 131.6 kg (290 lb 3.2 oz) SpO2 97% BMI 37.26 kg/m2 Physical Exam Constitutional: Appearance: Normal appearance. He is obese. Cardiovascular: Rate and Rhythm: Normal rate and regular rhythm. Pulmonary: Effort: Pulmonary effort is normal. Breath sounds: Normal breath sounds. Skin: General: Skin is warm and dry. Neurological: Mental Status: He is alert and oriented to person, place, and time. Psychiatric: Mood and Affect: Mood normal. Behavior: Behavior normal. DATA: Creatinine Date Value Ref Range Status 06/04/2022 0.71 (L) 0.73 - 1.22 mg/dL Final Hemoglobin A1C (%) Date Value 03/24/2021 8.0 Hemoglobin A1C (POCT) (%) Date Value 10/21/2022 11.2 ) No components found for: URINEALBUMIN Cholesterol, Total (mg/dL) Date Value 06/04/2022 129 02/20/2018 230 Total Cholesterol, Nonfasting (mg/dL) Date Value 12/07/2022 145 12/22/2020 159 HDL Cholesterol (mg/dL) Date Value 06/04/2022 27 02/20/2018 30 HDL Cholesterol, Nonfasting (mg/dL) Date Value 12/07/2022 30 12/22/2020 30 LDL Cholesterol (mg/dL) Date Value 01/25/2017 129 LDL Cholesterol, Nonfasting (mg/dL) Date Value 12/07/2022 64 12/22/2020 70 Triglyceride (mg/dL) Date Value 06/04/2022 227 02/20/2018 158 Triglycerides, Nonfasting (mg/dL) Date Value 12/07/2022 257 12/22/2020 296 IMPRESSION: Mr. Delarosa is a 47 year old male here for evaluation of DM Type 2 complicated by dyslipidemia, Thyroid nodules, obesity. RECOMMENDATIONS: (E11.9) Type 2 diabetes mellitus without complication, without long-term current use of insulin ([facility]) (primary encounter diagnosis) Comment: Glycemic control is poor. Issues with cost of SGLT1 and GLP1's. 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 Plan: HEMOGLOBIN A1C (POC), insulin lispro protamine-insulin lispro (HumaLOG 75/25) pen Continue metformin Humalog 75/25: Breakfast 30 units Dinner 30 units After a few days increase again to: Breakfast 35 units Dinner 35 units Let me know how things are going in 2 wks. Follow up in 3 months. (E78.5) Dyslipidemia Comment/Plan: Managed per PcP (E04.2) Multiple thyroid nodules Comment/Plan: not addressed today. Initially evaluated per PCP Consider repeat thyroid ultrasound at follow up (E66.9) Obesity, Class II, BMI 35-39.9 Comment: Body mass index is 37.26 kg/m . Plan: Encouraged increase dietary and exercise efforts as able I spent a total of 25 minutes on the date of the service which included preparing to see the patient, [id number] patient care, completing clinical documentation, obtaining and/or reviewing separately obtained history, performing a medically appropriate examination, counseling and educating the pat ient/family/caregiver, ordering medications, tests, or procedures, and communicating results to thepatient/family/caregiver. Torres Monaco, MSN, TAX ACCOUNTANT, MANAGER DISASTER [employer]OVERY-C, CDE Endocrinology [facility] Medical Office [facility]/[address], [address] [place] [address] Fax: documented in this encounter[facility] Instructions* Patient Instructions* Dominik Kelley APRN.CHRISTOPHER - 01/09/2023 8:26 AM EDT Continue Ritalin Follow up in 3 months documented in [facility] encounterMer[facility] History of Present illness Narrative* Dominik Kelley APRN.CNP - 01/09/2023 8:21 AM EDT Chief Complaint Patient presents with: Follow Up HPI Bianca Delarosa is a 47 year old male who presents here today for Above Complaints.. Patient presents for follow up for Ritalin. Patient states his has verbalized an improvement with his symptoms and that he is feeling much more focused. Patient states that he is tolerating the medication well. Past medical history, appointments, medications, allergies reviewed. Previous Medical History PAST MEDICAL HISTORY Diagnosis Date Agitation 03/31/2014 Allergic rhinitis 03/31/2014 Allergy-induced asthma 03/31/2014 Mild intermitant Asthma Attention 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 12/07/2022 Substance agreement signed 12/2022, Tox screen done 12/2022 Current use of proton pump inhibitor 09/26/2018 Diabetic eye exam (HCC) 01/27/2017 Last eye exam: 03/05/2019 Diverticulosis 03/31/2014 Dyslipidemia 03/31/2014 Low HDL, High Trigs Elevated antinuclear antibody (JALEEL) level 03/31/2014 Family history of malignant neoplasm of gastrointestinal tract 03/31/2014 ISABELLA (generalized anxiety disorder) 06/22/2020 GERD without esophagitis 09/26/2018 Hiatal hernia 03/31/2014 Hx of colonic polyp 03/31/2014 Needs next colonoscopy 08/2022 Lump 11/16/2019 benign left palm Major depressive disorder with single episode, 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 Lazaro 03/2018 Multiple thyroid nodules 02/27/2018 US 03/2020 per radiology no further f/u needed.. All benign Biopsy 03/[address] Lazaro. Benign. Obesity, Class II, BMI 35-39.9 10/21/2022 Obstructive sleep apnea syndrome 01/27/2017 On CPAP Other joint derangement, not elsewhere classified, lower leg 03/25/2013 Primary insomnia 07/28/2020 QT prolongation 04/20/2021 Seen [facility] 04/19/2021: Retsof to be benign and related to anti- depressants. No changes needed. TMJ (temporomandibular joint disorder) 03/31/2014 Right side Type 2 diabetes mellitus without complication, without long-term current use of insulin (HCC) 01/19/2017 Well adult exam 12/17/2014 Last done:11/16/2019 Previous Surgical History PAST SURGICAL HISTORY Procedure Laterality Date APPENDECTOMY HX 2004 ARTHROTOMY W/MENISCUS REPAIR KNEE Right 04/2021 COLONOSCOPY 06/2012 Dr. Corrigan +polyp, repeat 5 yrs COLONOSCOPY 08/30/2022 repeat in 5 years COLONOSCOPY FLX DX W/COLLJ SPEC WHEN PFRMD 08/16/2017 Colonoscopy, repeat 5 yrs, Dr. Bliss PAST SURGICAL HISTORY OF 2008 benign cysts: 1 from head and 2 from neck TONSILLECTOMY & ADENOIDECTOMY AGE 11/> 1979 TONSILLECTOMY HX Family History FAMILY HISTORY Problem Relation Age of Onset Coronary Artery Disease Maternal Grandmother 60's Stroke Maternal Grandfather Colon Cancer Father 52 Coronary Artery Disease Father Colon Cancer Paternal Uncle 49 Coronary Artery Disease Mother 60's Hypertension Mother No Known Problems Brother No Known Problems Brother No Known Problems Brother Alzheimer's Disease No Family History Prostate Cancer No Family History Breast Cancer No Family History Hyperlipidemia No Family History Kidney Disease No Family History Seizures No Family History Thyroid No Family History Patient Allergies ALLERGIES Allergen Reactions Topamax [Topiramate] Mental Status Change Unable to remember anything Celexa [Citalopram * Other: See Comments uneffective Effexor [Venlafaxin* Other: See Comments Sexual side affect Reglan [Metoclopram* Unknown Zoloft [Sertraline * Other: See Comments drowsy Current Medications Current Outpatient Medications on File Prior to Visit Medication Sig Fenofibrate (LOFIBRA) 54 mg tablet Take 1 tablet by mouth once daily. atorvastatin (LIPITOR) 20 mg tablet Take 1 tablet by mouth once daily. zonisamide (ZONEGRAN) 25 mg capsule Take 1 capsule by mouth once daily. busPIRone (BUSPAR) 15 mg tablet Take one tab by mouth twice a day. DULoxetine (CYMBALTA) 60 mg capsule Take 1 capsule by mouth once daily. OLANZapine (ZYPREXA) 5 mg tablet Take 1 tablet by mouth daily at bedtime. doxepin capsule 10 mg Take 1 capsule by mouth daily at bedtime. methylphenidate LA (RITALIN LA) 10 mg 24 hr capsule Take 1 capsule by mouth once daily for 30 days. Blood-Glucose Sensor (FREESTYLE EVERT 3 SENSOR) agnes Use one sensor every 14 day, IDDM, E11.9 metFORMIN (GLUCOPHAGE) 500 mg tablet Take 2 tablets by mouth twice daily with meals. insulin lispro protamine-insulin lispro (HumaLOG 75/25) pen Inject subcutaneously 25 units breakfast and 25 units dinner semaglutide (RYBELSUS) 3 mg tablet Take 1 tablet by mouth daily before breakfast. X 30 days semaglutide (RYBELSUS) 7 mg tablet Take 1 tablet (7 mg) by mouth daily before breakfast. (Start after having taken 3mg daily x 30 days) Insulin [place], Disposable, (BD ULTRAFINE III MINI PEN) 31 gauge x 3/16 Use two pen needles daily albuterol HFA (PROAIR HFA) 90 mcg/actuation inhaler Inhale 2 Puffs as instructed every 4 hours as needed for wheezing/shortness of breath. riboflavin, vitamin B2, (VITAMIN B-2) 100 mg tab Take 2 tablets by mouth twice daily. omega-3 fatty acids 1,000 mg cap Take 1 capsule by mouth twice daily. Magnesium Oxide 250 mg magnesium tab Take 1 tablet by mouth twice daily. aspirin, enteric coated (ASPIRIN, ENTERIC COATED) 81 mg EC tablet Take 1 tablet by mouth once daily. CPAP AUTO PAP 5-20 cmH20, CHIN STRAP, heated HUMIDITY, mask of patient's choice. LIFETIME SUPPLIES.SD Card. Download to [employer]. multivitamin tablet Take 1 tablet by mouth once daily. fluticasone (FLONASE) 50 mcg/actuation nasal spray Use 1 [place] in each nostril once daily. Rinse mouth after use. esomeprazole (NEXIUM) 40 mg capsule Take 40 mg by mouth once daily. No current facility-administered medications on file prior to visit. Social History Social History Tobacco Use Smoking status: Never Smokeless tobacco: Never Vaping Use Vaping Use: Never used Substance Use Topics Alcohol use: Yes Comment: Rarely Drug use: No Review of Symptoms REVIEW OF SYSTEMS SEE HPI EXAM: BP 124/82 Pulse 80 Resp 16 Wt 131.1 kg (289 lb) BMI 37.11 kg/m General Appearance: Well appearing, alert, in no acute distress, well-hydrated, well nourished.. Health Maintenance List HBA1C due on 01/19/2023 URINE ALBUMIN:CREATININE RATIO due on 06/04/2023 DIABETIC FOOT EXAM due on 06/04/2023 LDL CHOLESTEROL due on 12/08/2023 ANNUAL PCP TEAM CHRONIC DISEASE VISIT due on 12/08/2023 DILATED RETINAL EXAM due on 12/10/2023 COLORECTAL CANCER SCREENING due on 08/30/2027 DTAP,TDAP,TD(3 - Td or Tdap) due on 04/13/2031 PNEUMOCOCCAL(3 - PPSV23 if available, else PCV20) due on 12/14/2039 HEPATITIS B Completed INFLUENZA Completed COVID-19 VACCINE Completed SPIROMETRY Discontinued HEPATITIS C SCREENING Discontinued HIV SCREENING Discontinued ASSESSMENT/PLAN: 1. Attention 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 - ICD9: 314.00, ICD10: F98.8 - METHYLPHENIDATE LA 10 MG BIPHASIC 50-50 CAPSULE,EXTENDED RELEASE Dominik Kelley APRN.CIRCUIT COURT CLERK documented in this encounterMer[facility]03[facility]23 Miscellaneous Notes* Telephone Encounter - Gissel Spears RN - 12/08/2022 8:16 AM EST Phoned patient and given provider's message below with verbalized understanding. * Telephone Encounter - Humberto Jackson MD - 12/07/2022 7:59 PM EST Let patient know lipid panel showed Trigs elevated at 257 (goal<150), HDL low at 30 (goal>40)and LDL good at 64. Work on reduced fat in diet and increased exercise. documented in this encounterMer[facility]03[facility]01-[facility] History of Present illness Narrative* Humberto Jackson MD - 12/07/2022 9:00 AM EST Chief Complaint No chief complaint on file. HPI Bianca Delarosa is a 46 year old male who presents here today for 6 month follow up . Patient with hx of DM 2, hyperlipidemia, GERD, mood disorder, thyroid nodules, allergies, depression, migraines, insomnia, MIKE as well as those reviewed and addressed below and in ROS Seeing Endo. Has been working on diet and exercise and has lost some weight. Was to start Rebelsus but [facility] has not had in stock. Patient going to try to get transferred to [facility]> Has not worn his CPAP since before COVID due to making it hard to breath. Has eye exam set up this month. Sleeping has been good along with Mood. Attention span is not good. brought this up with him. He was on Ritalin as a child and his mother told him he did much better. Past medical history, appointments, medications, allergies reviewed. Previous Medical History PAST MEDICAL HISTORY Diagnosis Date Agitation 03/31/2014 Allergic rhinitis 03/31/2014 Allergy-induced asthma 03/31/2014 Mild intermitant Asthma Current use of proton pump inhibitor 09/26/2018 Diabetic eye exam (HCC) 01/27/2017 Last eye exam: 03/05/2019 Diverticulosis 03/31/2014 Dyslipidemia 03/31/2014 Low HDL, High Trigs Elevated antinuclear antibody (JALEEL) level 03/31/2014 Family history of malignant neoplasm of gastrointestinal tract 03/31/2014 ISABELLA (generalized anxiety disorder) 06/22/2020 GERD without esophagitis 09/26/2018 Hiatal hernia 03/31/2014 Hx of colonic polyp 03/31/2014 Needs next colonoscopy 08/2022 Lump 11/16/2019 benign left palm Major depressive disorder with single episode, 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 Lazaro 03/2018 Multiple thyroid nodules 02/27/2018 US 03/2020 per radiology no further f/u needed.. All benign Biopsy 03/[address] Lazaro. Benign. Obstructive sleep apnea syndrome 01/27/2017 On CPAP Other joint derangement, not elsewhere classified, lower leg 03/25/2013 Primary insomnia 07/28/2020 QT prolongation 04/20/[address] [facility]: Retsof to be benign and related to anti- depressants. No changes needed. TMJ (temporomandibular joint disorder) 03/31/2014 Right side Type 2 diabetes mellitus without complication, without long-term current use of insulin ([facility]) 01/19/2017 Well adult exam 12/17/2014 Last done:11/16/2019 Previous Surgical History PAST SURGICAL HISTORY Procedure Laterality Date APPENDECTOMY HX 2003 ARTHROTOMY W/MENISCUS REPAIR KNEE Right 04/2021 COLONOSCOPY 06/2012 Dr. Corrigan +polyp, repeat 5 yrs COLONOSCOPY 08/30/2022 repeat in 5 years COLONOSCOPY FLX DX W/COLLJ SPEC WHEN PFRMD 08/16/2017 Colonoscopy, repeat 5 yrs, Dr. Bliss PAST SURGICAL HISTORY OF 2009 benign cysts: 1 from head and 2 from neck TONSILLECTOMY & ADENOIDECTOMY AGE 11/> 1979 TONSILLECTOMY HX Family History FAMILY HISTORY Problem Relation Age of Onset Coronary Artery Disease Maternal Grandmother 60's Stroke Maternal Grandfather Colon Cancer Father 52 Coronary Artery Disease Father Colon Cancer Paternal Uncle 49 Coronary Artery Disease Mother 60's Hypertension Mother No Known Problems Brother No Known Problems Brother No Known Problems Brother Alzheimer's Disease No Family History Prostate Cancer No Family History Breast Cancer No Family History Hyperlipidemia No Family History Kidney Disease No Family History Seizures No Family History Thyroid No Family History Patient Allergies ALLERGIES Allergen Reactions Topamax [Topiramate] Mental Status Change Unable to remember anything Celexa [Citalopram * Other: See Comments uneffective Effexor [Venlafaxin* Other: See Comments Sexual side affect Reglan [Metoclopram* Unknown Zoloft [Sertraline * Other: See Comments drowsy Current Medications Current Outpatient Medications on File Prior to Visit Medication Sig Blood-Glucose Sensor (FREESTYLE EVERT 3 SENSOR) agnes Use one sensor every 14 day, IDDM, E11.9 metFORMIN (GLUCOPHAGE) 500 mg tablet Take 2 tablets by mouth twice daily with meals. insulin lispro protamine-insulin lispro (HumaLOG 75/25) pen Inject subcutaneously 25 units breakfast and 25 units dinner semaglutide (RYBELSUS) 3 mg tablet Take 1 tablet by mouth daily before breakfast. X 30 days semaglutide (RYBELSUS) 7 mg tablet Take 1 tablet (7 mg) by mouth daily before breakfast. (Start after having taken 3mg daily x 30 days) Insulin Wykoff, Disposable, (BD ULTRAFINE III MINI PEN) 31 gauge x 3/16 Use two pen needles daily Fenofibrate (LOFIBRA) 54 mg tablet Take 1 tablet by mouth once daily. atorvastatin (LIPITOR) 20 mg tablet Take 1 tablet by mouth once daily. zonisamide (ZONEGRAN) 25 mg capsule Take 1 capsule by mouth once daily. busPIRone (BUSPAR) 15 mg tablet Take one tab by mouth twice a day. DULoxetine (CYMBALTA) 60 mg capsule Take 1 capsule by mouth once daily. OLANZapine (ZYPREXA) 5 mg tablet Take 1 tablet by mouth daily at bedtime. doxepin capsule 10 mg Take 1 capsule by mouth daily at bedtime. albuterol HFA (PROAIR HFA) 90 mcg/actuation inhaler Inhale 2 Puffs as instructed every 4 hours as needed for wheezing/shortness of breath. riboflavin, vitamin B2, (VITAMIN B-2) 100 mg tab Take 2 tablets by mouth twice daily. omega-3 fatty acids 1,000 mg cap Take 1 capsule by mouth twice daily. Magnesium Oxide 250 mg magnesium tab Take 1 tablet by mouth twice daily. aspirin, enteric coated (ASPIRIN, ENTERIC COATED) 81 mg EC tablet Take 1 tablet by mouth once daily. CPAP AUTO PAP 5-20 cmH20, CHIN STRAP, heated HUMIDITY, mask of patient's choice. LIFETIME SUPPLIES.SD Card. Download to [employer]. multivitamin tablet Take 1 tablet by mouth once daily. fluticasone (FLONASE) 50 mcg/actuation nasal spray Use 1 [place] in each nostril once daily. Rinse mouth after use. esomeprazole (NEXIUM) 40 mg capsule Take 40 mg by mouth once daily. No current facility-administered medications on file prior to visit. Social History Social History Tobacco Use Smoking status: Never Smokeless tobacco: Never Vaping Use Vaping Use: Never used Substance Use Topics Alcohol use: Yes Comment: Rarely Drug use: No Review of Symptoms REVIEW OF SYSTEMS GENERAL: No weight loss, malaise or fevers NECK: Negative for lumps, goiter, pain and significant neck swelling RESPIRATORY: Negative for cough, hemoptysis, wheezing, COPD, dyspnea or shortness of breath CARDIOVASCULAR: Negative for chest pain, leg swelling, hypertension, CHF or palpitations GI: No nausea, vomiting, or diarrhea and No heartburn or reflux symptoms : No history of dysuria, no blood PSYCH: See HPI ENDOCRINE: Negative for symptoms of lower blood sugars. NEURO: No history of frequent headaches, syncope, paralysis, seizures or tremors EXAM: BP 124/84 (BP Site: Left Arm, BP Position: Sitting, BP Cuff Size: Large Adult) Pulse 84 Resp 16 Wt 129.7 kg (286 lb) BMI 36.72 kg/m Last 5 Encounter Wt Readings: Date: Wt: 12/07/2022 129.7 kg (286 lb) 10/21/2022 129.7 kg (286 lb) 08/22/2022 129.3 kg (285 lb) 08/17/2022 127.9 kg (282 lb) 08/11/2022 127.5 kg (281 lb) General Appearance: Well appearing, alert, in no acute distress, well-hydrated, well nourished. andObese. Eyes: Anicteric sclera. Pupils are equally round and reactive to light. Extraocular movements are intact. . Neck: Supple, no adenopathy; thyroid symmetric, normal size, no bruits. Lungs: Lungs clear to auscultation. No wheezing, rhonchi, rales.. Heart: RRR without murmur, gallop, or rubs. No ectopy. Abdomen: Normal abdominal exam, Abdomen soft, non-tender. Bowel sounds normal. No masses, organomegaly. Extremities: No deformities, edema, skin discoloration, Good capillary refill. . Peripheral Pulses: Normal. Neurologic: Gait normal. Sensation to light touch and crainal nerves 2-12 intact.. Health Maintenance List DILATED RETINAL EXAM due on 12/01/2022 HEPATITIS B(3 of 3 - 19+ 3-dose series) due on 12/18/2022 HBA1C due on 01/19/2023 URINE ALBUMIN:CREATININE RATIO due on 06/04/2023 LDL CHOLESTEROL due on 06/04/2023 DIABETIC FOOT EXAM due on 06/04/2023 ANNUAL PCP TEAM CHRONIC DISEASE VISIT due on 08/17/2023 COLORECTAL CANCER SCREENING due on 08/30/2027 DTAP,TDAP,TD(3 - Td or Tdap) due on 04/13/2031 PNEUMOCOCCAL(3 - PPSV23 if available, else PCV20) due on 12/14/2039 INFLUENZA Completed COVID-19 VACCINE Completed SPIROMETRY Discontinued HEPATITIS C SCREENING Discontinued HIV SCREENING Discontinued Data reviewed Component Latest Ref Rng & Units 06/04/2022 10/21/2022 WBC 3.70 - 11.00 k/uL 7.64 RBC 4.20 - 6.00 m/uL 5.12 Hemoglobin 13.0 - 17.0 g/dL 16.0 Hematocrit 39.0 - 51.0 % 46.7 MCV 80.0 - 100.0 fL 91.2 MCH 26.0 - 34.0 pg 31.3 MCHC 30.5 - 36.0 g/dL 34.3 RDW-CV 11.5 - 15.0 % 11.9 Platelet Count 150 - 400 k/uL 241 MPV 9.0 - 12.7 fL 13.2 (H) Neut% % 51.4 Abs Neut (ANC) 1.45 - 7.50 k/uL 3.93 Lymph% % 39.7 Abs Lymph 1.00 - 4.00 k/uL 3.03 Tensas% % 6.3 Abs Tensas <0.87 k/uL 0.48 Eosin% % 1.4 Abs Eosin <0.46 k/uL 0.11 Baso% % 0.8 Abs Baso <0.11 k/uL 0.06 Immature Gran % % 0.4 IMMATURE GRANS (ABS) <0.10 k/uL 0.03 NRBC /100 WBC 0.0 Absolute nRBC <0.01 k/uL <0.01 DTYPE Auto Protein, Total 6.3 - 8.0 g/dL 7.1 Albumin 3.9 - 4.9 g/dL 4.6 Calcium 8.5 - 10.2 mg/dL 9.8 Bilirubin, Total 0.2 - 1.3 mg/dL 0.6 Alkaline Phosphatase 38 - 113 U/L 153 (H) AST 14 - 40 U/L 29 ALT 10 - 54 U/L 19 Glucose 74 - 99 mg/dL 233 (H) BUN 9 - 24 mg/dL 10 Creatinine 0.73 - 1.22 mg/dL 0.71 (L) Sodium 136 - 144 mmol/L 139 Potassium 3.7 - 5.1 mmol/L 4.3 Chloride 97 - 105 mmol/L 102 CO2 22 - 30 mmol/L 23 Anion Gap 9 - 18 mmol/L 14 eGFR >=60 mL/min/1.73m 114 Cholesterol, Total <200 mg/dL 129 Triglyceride <150 mg/dL 227 (H) HDL Cholesterol >39 mg/dL 27 (L) Non HDL Cholesterol <130 mg/dL 102 Fasting Time hrs 12 VLDL Cholesterol <30 mg/dL 45 (H) TC:HDL Ratio <5.10 4.78 LDL Cholesterol <100 mg/dL 57 LDL:HDL Ratio <2.54 2.11 Hemoglobin A1C 4.3 - 5.6 % 10.8 (H) Estimated Average Glucose mg/dL 263 Vitamin B12 232 - 1,245 pg/mL 418 Magnesium 1.7 - 2.3 mg/dL 2.0 TSH 0.270 - 4.200 mIU/L 1.350 Hemoglobin A1C (POCT) 4.2 - 5.6 % 11.2 (A) A/P ASSESSMENT/PLAN: 1. Type 2 diabetes mellitus without complication, without long-term current use of insulin (HCC) - ICD9: 250.00, ICD10: E11.9 (primary diagnosis) - Uncontrolled - Continue current medications - Counseled on healthy diet and regular exercise - management per Endo Check - LIPID PANEL, NONFASTING 2. Dyslipidemia - ICD9: 272.4, ICD10: E78.5 - to be determined upon return of lab results - Encouraged following a low fat, low cholesterol diet. - Discussed the benefits of regular aerobic exercise and weight loss. - Encouraged following a low carbohydrate, healthy oil intake diet. - Continue current therapy. - LIPID PANEL, NONFASTING 3. Diabetic eye exam (HCC) - ICD9: V72.0, 250.00, ICD10: Z01.00, E11.9 - being updated soon. 4. GERD without esophagitis - ICD9: 530.81, ICD10: K21.9 - Continue treatment with Nexium 40 mg QD 5. Migraine without aura and without status migrainosus, not intractable - ICD9: 346.10, ICD10: G43.009 - stable no changes 6. Mild intermittent extrinsic asthma without complication - ICD9: 493.00, ICD10: J45.20 Mild intermittent Asthma stable - Continue current meds - Avoidance of triggers recommended 7. Mood disorder (HCC) - ICD9: 296.90, ICD10: F39 - stable with current meds. 8. Agitation - ICD9: 307.9, ICD10: R45.1 - as per #7 9. Major depressive disorder with single episode, in partial remission (HCC) - ICD9: 296.25, ICD10:F32.4 - as per #7 10. ISABELLA (generalized anxiety disorder) - ICD9: 300.02, ICD10: F41.1 - as per #7 11. Obstructive sleep apnea syndrome - ICD9: 327.23, ICD10: G47.33 - no longer wearing CPAP. 12. Primary insomnia - ICD9: 307.42, ICD10: F51.01 - cont doxepin. 13. Attention 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 - ICD9: 314.00, ICD10: F98.8 Will try - METHYLPHENIDATE LA 10 MG BIPHASIC 50-50 CAPSULE,EXTENDED RELEASE once a day - substance agreement signed. - check urine Tox and pain panel. PDMP website checked and validated. All prescriptions have been APPROPRIATELY filled. No suspiciousactivity was identified. 12/07/2022 by Humberto Jackson MD 14. Need for vaccination - ICD9: V05.9, ICD10: Z23 - HEPATITIS B VACCINE, ADULT AGE 20+, IM: given Requested Prescriptions Signed Prescriptions Disp Refills Fenofibrate (LOFIBRA) 54 mg tablet 90 tablet 1 Sig: Take 1 tablet by mouth once daily. atorvastatin (LIPITOR) 20 mg tablet 90 tablet 1 Sig: Take 1 tablet by mouth once daily. zonisamide (ZONEGRAN) 25 mg capsule 90 capsule 1 Sig: Take 1 capsule by mouth once daily. busPIRone (BUSPAR) 15 mg tablet 180 tablet 1 Sig: Take one tab by mouth twice a day. DULoxetine (CYMBALTA) 60 mg capsule 90 capsule 1 Sig: Take 1 capsule by mouth once daily. OLANZapine (ZYPREXA) 5 mg tablet 90 tablet 1 Sig: Take 1 tablet by mouth daily at bedtime. doxepin capsule 10 mg 90 capsule 1 Sig: Take 1 capsule by mouth daily at bedtime. methylphenidate LA (RITALIN LA) 10 mg 24 hr capsule 30 capsule 0 Sig: Take 1 capsule by mouth once daily for 30 days. F/u 4 weeks on ADD Tx. F/u 4 months routine Humberto Jackson MD [facility] Miscellaneous Notes* Telephone Encounter - Gwen Herbert Ma - 10/28/2022 3:34 PM EST Images from the original note were not included. APPROVED Approved [id number] Prior authorization approved Payer: Abdulaziz CLAY Case: [id number], Status: Approved, Coverage Starts on: 10/28/2022 12:00:00 AM, Coverage Ends on: 10/28/2023 12:00:00 AM. Approval Details Authorization number: [id number] Authorized from October 28, 2022 to October 28, 2023 Electronic appeal: Not supported View History Medication Being Authorized semaglutide (RYBELSUS) 7 mg tablet Take 1 tablet (7 mg) by mouth daily before breakfast. (Start after having taken 3mg daily x 30 days) Dispense: 30 tablet Refills: 5 Start: 10/21/2022 Class: Normal Diagnoses: Type 2 diabetes mellitus without complication, without long-term current use of insulin (HCC) This order has been released to its destination. To be filled at: [facility] #[id number] [place] [address] - [address] [place], [place] [id number] Pharmacy Benefits BIANCA DELAROSA BB [id number] ([facility]) Covered: Retail, Mail Order, Specialty Unknown: Long-Term Care Group ID: [id number] Group name: [facility] BIN: [id number] PCN: WG : [id number] Legal sex: M Address: [address] [place] [address] documented in [address] [facility] Nurse Note* Tami Olsen RN - 08/30/2022 8:02 AM EST Arrived in phase II via cart in left lateral position, eyes closed, skin warm and dry, responds to verbal stimuli, denies pain or nausea, abdomen soft and non distended. Oxygen saturation 88-90% on room air upon arrival, oxygen applied per NC 2L, continues to rest comfortably on left side. documented in [facility] History and physical note * Johanna Bliss MD - 08/30/2022 7:30 AM EST UPDATED PROCEDURAL SEDATION HISTORY AND PHYSICAL EXAMINATION SERVICE DATE: 08/30/2022 SERVICE TIME: 7:05 PHYSICAL EXAM MUST BE COMPLETED ON ADMISSION PROCEDURE: colonoscopy, possible biposies Procedure Indications: scrrening for colon cancer - high risk family history of colon cancer The History and Physical (completed in the past 30 days) has been reviewed and the patient has beenexamined. The contents accurately reflect the patient's condition with the following additions or revisions since the H&P was completed. ASA Class: ASA Class:: Patient with severe systemic disease Examination indicates no changes. AIRWAY: Airway Visualization of Uvula: Yes Mouth opening greater than 2 fingerbreadths: Yes Neck Full Range of Motion: Yes LUNGS: Lungs clear to auscultation CARDIAC: Regular rhythm,Regular rate Provisional Diagnosis/Treatment Plan: colonoscopy, possible bipsies SEDATION GOAL: Moderate This H&P can be found in the Electronic Medical Record. SIGNATURE: Johanna Bliss MD PATIENT NAME: Bianca Delarosa DATE: August 30, 2022 TIME: 7:09 AM Source Note - Johanna Bliss MD - 08/30/2022 7:30 AM EST HISTORY AND PHYSICAL Bianca Saenz [place] 1975 REFERRING PHYSICIAN: Humberto Jackson MD CHIEF COMPLAINT: Consult (Colonoscopy consult, last colon 2017-repeat in 5 years) HPI: The patient is a 46 year old male referred for consideration for surveillance colonoscopy for family history of colon cancer. The patient denies blood in stools, denies abdominal pain, and denies changes in bowel habits. His father was diagnosed with colon cancer in his 50s. The patient has had previous colonoscopy in 2017 with no polyps noted. PAST MEDICAL HISTORY Diagnosis Date Agitation 03/31/2014 Allergic rhinitis 03/31/2014 Allergy-induced asthma 03/31/2014 Mild intermitant Current use of proton pump inhibitor 09/26/2018 Diabetic eye exam (HCC) 01/27/2017 Last eye exam: 03/05/2019 Diverticulosis 03/31/2014 Dyslipidemia 03/31/2014 Low HDL, High Trigs Elevated antinuclear antibody (JALEEL) level 03/31/2014 Family history of malignant neoplasm of gastrointestinal tract 03/31/2014 ISABELLA (generalized anxiety disorder) 06/22/2020 GERD without esophagitis 09/26/2018 Hiatal hernia 03/31/2014 Hx of colonic polyp 03/31/2014 Needs next colonoscopy 08/2022 Lump 11/16/2019 benign left palm Major depressive disorder with single episode, 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 Lazaro 03/2018 Multiple thyroid nodules 02/27/2018 US 03/2020 per radiology no further f/u needed.. All benign Biopsy 03/[address] Lazaro. Benign. Obstructive sleep apnea syndrome 01/27/2017 On CPAP Other joint derangement, not elsewhere classified, lower leg 03/25/2013 Primary insomnia 07/28/2020 QT prolongation 04/20/2021 Seen [facility] 04/19/2021: [place] to be benign and related to anti- depressants. No changes needed. TMJ (temporomandibular joint disorder) 03/31/2014 Right side Type 2 diabetes mellitus without complication, without long-term current use of insulin ([facility]) 01/19/2017 Well adult exam 12/17/2014 Last done:11/16/2019 PAST SURGICAL HISTORY Procedure Laterality Date APPENDECTOMY HX 2004 ARTHROTOMY W/MENISCUS REPAIR KNEE Right 04/2021 COLONOSCOPY 06/2012 Dr. Corrigan +polyp, repeat 5 yrs COLONOSCOPY FLX DX W/COLLJ SPEC WHEN PFRMD 08/16/2017 Colonoscopy, repeat 5 yrs, Dr. Bliss PAST SURGICAL HISTORY OF 2009 benign cysts: 1 from head and 2 from neck TONSILLECTOMY & ADENOIDECTOMY AGE 11/> 1979 Current Outpatient Medications Medication Sig insulin lispro protamine-insulin lispro (HumaLOG 75/25) pen Inject subcutaneously 25 units breakfast and 25 units dinner Insulin Wykoff, Disposable, (BD ULTRAFINE III MINI PEN) 31 gauge x 3/16 Use two pen needles daily Fenofibrate (LOFIBRA) 54 mg tablet Take 1 tablet by mouth once daily. atorvastatin (LIPITOR) 20 mg tablet Take 1 tablet by mouth once daily. zonisamide (ZONEGRAN) 25 mg capsule Take 1 capsule by mouth once daily. busPIRone (BUSPAR) 15 mg tablet Take one tab by mouth twice a day. DULoxetine (CYMBALTA) 60 mg capsule Take 1 capsule by mouth once daily. OLANZapine (ZYPREXA) 5 mg tablet Take 1 tablet by mouth daily at bedtime. doxepin capsule 10 mg Take 1 capsule by mouth daily at bedtime. metFORMIN (GLUCOPHAGE) 500 mg tablet Take 2 tablets by mouth twice daily with meals. albuterol HFA (PROAIR HFA) 90 mcg/actuation inhaler Inhale 2 Puffs as instructed every 4 hours as needed for wheezing/shortness of breath. riboflavin, vitamin B2, (VITAMIN B-2) 100 mg tab Take 2 tablets by mouth twice daily. omega-3 fatty acids 1,000 mg cap Take 1 capsule by mouth twice daily. Magnesium Oxide 250 mg magnesium tab Take 1 tablet by mouth twice daily. aspirin, enteric coated (ASPIRIN, ENTERIC COATED) 81 mg EC tablet Take 1 tablet by mouth once daily. multivitamin tablet Take 1 tablet by mouth once daily. fluticasone (FLONASE) 50 mcg/actuation nasal spray Use 1 [place] in each nostril once daily. Rinse mouth after use. esomeprazole (NEXIUM) 40 mg capsule Take 40 mg by mouth once daily. CPAP AUTO PAP 5-20 cmH20, CHIN STRAP, heated HUMIDITY, mask of patient's choice. LIFETIME SUPPLIES.SD Card. Download to [employer]. (Patient not taking: Reported on 07/22/2022) ALLERGIES: Topamax [Topiramate], Celexa [Citalopram Hydrobromide], Effexor [Venlafaxine Analogues],Reglan [Metoclopramide Hcl], and Zoloft [Sertraline Hcl] PERSONAL HISTORY: Social History Tobacco Use Smoking status: Never Smokeless tobacco: Never Vaping Use Vaping Use: Never used Substance Use Topics Alcohol use: Yes Comment: Rarely Drug use: No FAMILY HISTORY Problem Relation Age of Onset Coronary Artery Disease Maternal Grandmother 60's Stroke Maternal Grandfather Colon Cancer Father 52 Coronary Artery Disease Father Colon Cancer Paternal Uncle 49 Coronary Artery Disease Mother 60's Hypertension Mother No Known Problems Brother No Known Problems Brother No Known Problems Brother Alzheimer's Disease No Family History Prostate Cancer No Family History Breast Cancer No Family History Hyperlipidemia No Family History Kidney Disease No Family History Seizures No Family History Thyroid No Family History The review of systems data was entered by the nurse and reviewed by [place] Nursing Notes: Nunu Blackwood RN 07/22/2022 4:32 PM Signed REVIEW OF SYSTEMS: General: The patient denies fatigue, denies weight loss, denies weight gain, denies feeling hot, and denies feelings of cold. Eyes: The patient denies glaucoma, denies eye injury/surgery, wears glasses or contacts. Ear/Nose/Throat: The patient denies allergies, NOTES hayfever, denies ear infections, and denies bloody noses. Cardiovascular: The patient denies chest pain, denies heart disease, denies high blood pressure,denies cardiac stent, denies prior heart attack, denies irregular heart beat, denies high cholesterol, denies poor circulation, denies heart failure, other cardiac issues, denies claudication, denies cold feet, denies peripheral arterial stent. Respiratory: The patient denies tuberculosis, NOTES pneumonia, denies frequent cough, denies pulmonary embolism, denies shortness of breath, and denies coughing up blood. Gastrointestinal: The patient denies difficulty swallowing, NOTES acid reflux, denies ulcers, denies vomiting, denies jaundice/hepatitis, denies gallbladder problems, denies black or tarry stools, denies hemorrhoids, denies bleeding from rectum, denies diverticulitis, denies constipation, denies diarrhea, denies loss of stool control, and denies hernias. Kidney/Bladder: The patient denies kidney stones, denies urine infections, and denies bloody urine. Skin: The patient denies a history of skin cancer, denies bleeding/changing moles, and denies a history of skin rash. Neurologic: The patient denies a history of epilepsy/convulsions, NOTES headaches, denies head/spinal injuries, and denies stroke/TIA. Psychiatric: The patient denies psychiatric medications, NOTES depression, and denies voices, denies substance abuse. Endocrine: The patient denies thyroid disorders, NOTES diabetes, and denies hormonal problems. Hematologic: The patient denies a history of bruising, denies bleeding, and denies anemia, denies blood clots. Infections: The patient denies a history of measles and mumps, denies rheumatic fever, and denies sexually transmitted diseases. Musculoskeletal: The patient denies back pain/injury, denies back problems, denies sciatica, NOTES knee/foot trouble, denies arthritis, or denies gout. When was patient's last Mammogram screening? N/A Last Colonoscopy: 2016 Nunu Blackwood RN PHYSICAL EXAMINATION: General: The patient is 46 year old male, well nourished, well hydrated in no acute distress. The patient is oriented to time, place, and person. VITALS: Blood pressure 132/80, pulse 111, temperature 36.7 C (98 F), height 188 cm (6' 2), weight 130.2 kg (287 lb), SpO2 96 %. Body mass index is 36.85 kg/m . Head: Normal cephalic, atraumatic Eyes: pupils are equally round, sclera are clear/anicteric Neck is supple with no tracheal deviation Respiratory: Normal respiratory excursion and pattern. Abdominal exam: benign Extremities: no clubbing, cyanosis or edema. Neuro: non focal Psych: normal mood IMPRESSION: family history of colon cancer PLAN: I have discussed the above with the patient. I have offered colonoscopy , possible biopsies I have explained the procedure to the patient. I have counseled the patient as to the risks of the procedure, including but not limited to: infection, bleeding, injury to any intrabdominal organs such as liver/spleen, perforation of the GI tract,inability to complete the procedure, complications of anesthesia, etc. - the patient understands. The patient wishes to proceed. I have answered all questions to the patient s satisfaction and the patient has no further questions. Diagnoses: (Z80.0) Family history of colon cancer in father (primary encounter diagnosis) Johanna Bliss MD * Johanna Bliss MD - 08/30/2022 7:30 AM EST HISTORY AND PHYSICAL Bianca [place]enz [place] 1975 REFERRING PHYSICIAN: Humberto Jackson MD CHIEF COMPLAINT: Consult (Colonoscopy consult, last colon 2017-repeat in 5 years) HPI: The patient is a 46 year old male referred for consideration for surveillance colonoscopy for family history of colon cancer. The patient denies blood in stools, denies abdominal pain, and denies changes in bowel habits. His father was diagnosed with colon cancer in his 50s. The patient has had previous colonoscopy in 2017 with no polyps noted. PAST MEDICAL HISTORY Diagnosis Date Agitation 03/31/2014 Allergic rhinitis 03/31/2014 Allergy-induced asthma 03/31/2014 Mild intermitant Current use of proton pump inhibitor 09/26/2018 Diabetic eye exam (HCC) 01/27/2017 Last eye exam: 03/05/2019 Diverticulosis 03/31/2014 Dyslipidemia 03/31/2014 Low HDL, High Trigs Elevated antinuclear antibody (JALEEL) level 03/31/2014 Family history of malignant neoplasm of gastrointestinal tract 03/31/2014 ISABELLA (generalized anxiety disorder) 06/22/2020 GERD without esophagitis 09/26/2018 Hiatal hernia 03/31/2014 Hx of colonic polyp 03/31/2014 Needs next colonoscopy 08/2022 Lump 11/16/2019 benign left palm Major depressive disorder with single episode, in partial remission ([facility]) 09/26/2018 Migraine without aura and without status migrainosus, not intractable 09/11/2015 Mood disorder ([facility]) 03/31/2014 Multiple thyroid nodules 02/27/[address] Lazaro 03/2018 Multiple thyroid nodules 02/27/2018 US 03/2020 per radiology no further f/u needed.. All benign Biopsy 03/[address] Lazaro. Benign. Obstructive sleep apnea syndrome 01/27/2017 On CPAP Other joint derangement, not elsewhere classified, lower leg 03/25/2013 Primary insomnia 07/28/2020 QT prolongation 04/20/2021 Seen [facility] 04/19/2021: [place]so[place] to be benign and related to anti- depressants. No changes needed. TMJ (temporomandibular joint disorder) 03/31/2014 Right side Type 2 diabetes mellitus without complication, without long-term current use of insulin ([facility]) 01/19/2017 Well adult exam 12/17/2014 Last done:11/16/2019 PAST SURGICAL HISTORY Procedure Laterality Date APPENDECTOMY HX 2004 ARTHROTOMY W/MENISCUS REPAIR KNEE Right 04/2021 COLONOSCOPY 06/2012 Dr. Corrigan +polyp, repeat 5 yrs COLONOSCOPY FLX DX W/COLLJ SPEC WHEN PFRMD 08/16/2017 Colonoscopy, repeat 5 yrs, Dr. Bliss PAST SURGICAL HISTORY OF 2009 benign cysts: 1 from head and 2 from neck TONSILLECTOMY & ADENOIDECTOMY AGE 11/> 1979 Current Outpatient Medications Medication Sig insulin lispro protamine-insulin lispro (HumaLOG 75/25) pen Inject subcutaneously 25 units breakfast and 25 units dinner Insulin Wykoff, Disposable, (BD ULTRAFINE III MINI PEN) 31 gauge x 3/16 Use two pen needles daily Fenofibrate (LOFIBRA) 54 mg tablet Take 1 tablet by mouth once daily. atorvastatin (LIPITOR) 20 mg tablet Take 1 tablet by mouth once daily. zonisamide (ZONEGRAN) 25 mg capsule Take 1 capsule by mouth once daily. busPIRone (BUSPAR) 15 mg tablet Take one tab by mouth twice a day. DULoxetine (CYMBALTA) 60 mg capsule Take 1 capsule by mouth once daily. OLANZapine (ZYPREXA) 5 mg tablet Take 1 tablet by mouth daily at bedtime. doxepin capsule 10 mg Take 1 capsule by mouth daily at bedtime. metFORMIN (GLUCOPHAGE) 500 mg tablet Take 2 tablets by mouth twice daily with meals. albuterol HFA (PROAIR HFA) 90 mcg/actuation inhaler Inhale 2 Puffs as instructed every 4 hours as needed for wheezing/shortness of breath. riboflavin, vitamin B2, (VITAMIN B-2) 100 mg tab Take 2 tablets by mouth twice daily. omega-3 fatty acids 1,000 mg cap Take 1 capsule by mouth twice daily. Magnesium Oxide 250 mg magnesium tab Take 1 tablet by mouth twice daily. aspirin, enteric coated (ASPIRIN, ENTERIC COATED) 81 mg EC tablet Take 1 tablet by mouth once daily. multivitamin tablet Take 1 tablet by mouth once daily. fluticasone (FLONASE) 50 mcg/actuation nasal spray Use 1 [place] in each nostril once daily. Rinse mouth after use. esomeprazole (NEXIUM) 40 mg capsule Take 40 mg by mouth once daily. CPAP AUTO PAP 5-20 cmH20, CHIN STRAP, heated HUMIDITY, mask of patient's choice. LIFETIME SUPPLIES.SD Card. Download to [employer]. (Patient not taking: Reported on 07/22/2022) ALLERGIES: Topamax [Topiramate], Celexa [Citalopram Hydrobromide], Effexor [Venlafaxine Analogues],Reglan [Metoclopramide Hcl], and Zoloft [Sertraline Hcl] PERSONAL HISTORY: Social History Tobacco Use Smoking status: Never Smokeless tobacco: Never Vaping Use Vaping Use: Never used Substance Use Topics Alcohol use: Yes Comment: Rarely Drug use: No FAMILY HISTORY Problem Relation Age of Onset Coronary Artery Disease Maternal Grandmother 60's Stroke Maternal Grandfather Colon Cancer Father 52 Coronary Artery Disease Father Colon Cancer Paternal Uncle 49 Coronary Artery Disease Mother 60's Hypertension Mother No Known Problems Brother No Known Problems Brother No Known Problems Brother Alzheimer's Disease No Family History Prostate Cancer No Family History Breast Cancer No Family History Hyperlipidemia No Family History Kidney Disease No Family History Seizures No Family History Thyroid No Family History The review of systems data was entered by the nurse and reviewed by ky Nursing Notes: Nunu Blackwood RN 07/22/2022 4:32 PM Signed REVIEW OF SYSTEMS: General: The patient denies fatigue, denies weight loss, denies weight gain, denies feeling hot, and denies feelings of cold. Eyes: The patient denies glaucoma, denies eye injury/surgery, wears glasses or contacts. Ear/Nose/Throat: The patient denies allergies, NOTES hayfever, denies ear infections, and denies bloody noses. Cardiovascular: The patient denies chest pain, denies heart disease, denies high blood pressure,denies cardiac stent, denies prior heart attack, denies irregular heart beat, denies high cholesterol, denies poor circulation, denies heart failure, other cardiac issues, denies claudication, denies cold feet, denies peripheral arterial stent. Respiratory: The patient denies tuberculosis, NOTES pneumonia, denies frequent cough, denies pulmonary embolism, denies shortness of breath, and denies coughing up blood. Gastrointestinal: The patient denies difficulty swallowing, NOTES acid reflux, denies ulcers, denies vomiting, denies jaundice/hepatitis, denies gallbladder problems, denies black or tarry stools, denies hemorrhoids, denies bleeding from rectum, denies diverticulitis, denies constipation, denies diarrhea, denies loss of stool control, and denies hernias. Kidney/Bladder: The patient denies kidney stones, denies urine infections, and denies bloody urine. Skin: The patient denies a history of skin cancer, denies bleeding/changing moles, and denies a history of skin rash. Neurologic: The patient denies a history of epilepsy/convulsions, NOTES headaches, denies head/spinal injuries, and denies stroke/TIA. Psychiatric: The patient denies psychiatric medications, NOTES depression, and denies voices, denies substance abuse. Endocrine: The patient denies thyroid disorders, NOTES diabetes, and denies hormonal problems. Hematologic: The patient denies a history of bruising, denies bleeding, and denies anemia, denies blood clots. Infections: The patient denies a history of measles and mumps, denies rheumatic fever, and denies sexually transmitted diseases. Musculoskeletal: The patient denies back pain/injury, denies back problems, denies sciatica, NOTES knee/foot trouble, denies arthritis, or denies gout. When was patient's last Mammogram screening? N/A Last Colonoscopy: 2017 Nunu Blackwood RN PHYSICAL EXAMINATION: General: The patient is 46 year old male, well nourished, well hydrated in no acute distress. The patient is oriented to time, place, and person. VITALS: Blood pressure 132/80, pulse 111, temperature 36.7 C (98 F), height 188 cm (6' 2), weight 130.2 kg (287 lb), SpO2 96 %. Body mass index is 36.85 kg/m . Head: Normal cephalic, atraumatic Eyes: pupils are equally round, sclera are clear/anicteric Neck is supple with no tracheal deviation Respiratory: Normal respiratory excursion and pattern. Abdominal exam: benign Extremities: no clubbing, cyanosis or edema. Neuro: non focal Psych: normal mood IMPRESSION: family history of colon cancer PLAN: I have discussed the above with the patient. I have offered colonoscopy , possible biopsies I have explained the procedure to the patient. I have counseled the patient as to the risks of the procedure, including but not limited to: infection, bleeding, injury to any intrabdominal organs such as liver/spleen, perforation of the GI tract,inability to complete the procedure, complications of anesthesia, etc. - the patient understands. The patient wishes to proceed. I have answered all questions to the patient s satisfaction and the patient has no further questions. Diagnoses: (Z80.0) Family history of colon cancer in father (primary encounter diagnosis) Johanna Bliss MD documented [facility] History of Present illness Narrative* Kenyatta Castaneda PA-C - 08/17/2022 12:48 PM EST Chief Complaint Patient presents with: Recheck: trinh AAMRAL Bianca Delarosa is a 46 year old male who presents here today for recheck. Patient was seen last week for follow up on abscess. Concern at that time for nonhealing/closing wound. Symptoms have continued to improve per patient. No more pain. Minimal discharge. No pus. Past medical history, appointments, medications, allergies reviewed. Previous Medical History PAST MEDICAL HISTORY Diagnosis Date Agitation 03/31/2014 Allergic rhinitis 03/31/2014 Allergy-induced asthma 03/31/2014 Mild intermitant Current use of proton pump inhibitor 09/26/2018 Diabetic eye exam (HCC) 01/27/2017 Last eye exam: 03/05/2019 Diverticulosis 03/31/2014 Dyslipidemia 03/31/2014 Low HDL, High Trigs Elevated antinuclear antibody (JALEEL) level 03/31/2014 Family history of malignant neoplasm of gastrointestinal tract 03/31/2014 ISABELLA (generalized anxiety disorder) 06/22/2020 GERD without esophagitis 09/26/2018 Hiatal hernia 03/31/2014 Hx of colonic polyp 03/31/2014 Needs next colonoscopy 08/2022 Lump 11/16/2019 benign left palm Major depressive disorder with single episode, 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 Lazaro 03/2018 Multiple thyroid nodules 02/27/2018 US 03/2020 per radiology no further f/u needed.. All benign Biopsy 03/2018 Dr. Lazaro. Benign. Obstructive sleep apnea syndrome 01/27/2017 On CPAP Other joint derangement, not elsewhere classified, lower leg 03/25/2013 Primary insomnia 07/28/2020 QT prolongation 04/20/2021 Seen [facility] 04/19/2021: Retsof to be benign and related to anti- depressants. No changes needed. TMJ (temporomandibular joint disorder) 03/31/2014 Right side Type 2 diabetes mellitus without complication, without long-term current use of insulin (HCC) 01/19/2017 Well adult exam 12/17/2014 Last done:11/16/2019 Previous Surgical History PAST SURGICAL HISTORY Procedure Laterality Date APPENDECTOMY HX 2003 ARTHROTOMY W/MENISCUS REPAIR KNEE Right 04/2021 COLONOSCOPY 06/2012 Dr. Corrigan +polyp, repeat 5 yrs COLONOSCOPY FLX DX W/COLLJ SPEC WHEN PFRMD 08/16/2017 Colonoscopy, repeat 5 yrs, Dr. Bliss PAST SURGICAL HISTORY OF 2008 benign cysts: 1 from head and 2 from neck TONSILLECTOMY & ADENOIDECTOMY AGE 11/> 1979 Family History FAMILY HISTORY Problem Relation Age of Onset Coronary Artery Disease Maternal Grandmother 60's Stroke Maternal Grandfather Colon Cancer Father 52 Coronary Artery Disease Father Colon Cancer Paternal Uncle 49 Coronary Artery Disease Mother 60's Hypertension Mother No Known Problems Brother No Known Problems Brother No Known Problems Brother Alzheimer's Disease No Family History Prostate Cancer No Family History Breast Cancer No Family History Hyperlipidemia No Family History Kidney Disease No Family History Seizures No Family History Thyroid No Family History Patient Allergies ALLERGIES Allergen Reactions Topamax [Topiramate] Mental Status Change Unable to remember anything Celexa [Citalopram * Other: See Comments uneffective Effexor [Venlafaxin* Other: See Comments Sexual side affect Reglan [Metoclopram* Unknown Zoloft [Sertraline * Other: See Comments drowsy Current Medications Current Outpatient Medications on File Prior to Visit Medication Sig insulin lispro protamine-insulin lispro (HumaLOG 75/25) pen Inject subcutaneously 25 units breakfast and 25 units dinner Insulin Wykoff, Disposable, (BD ULTRAFINE III MINI PEN) 31 gauge x 3/16 Use two pen needles daily Fenofibrate (LOFIBRA) 54 mg tablet Take 1 tablet by mouth once daily. atorvastatin (LIPITOR) 20 mg tablet Take 1 tablet by mouth once daily. zonisamide (ZONEGRAN) 25 mg capsule Take 1 capsule by mouth once daily. busPIRone (BUSPAR) 15 mg tablet Take one tab by mouth twice a day. DULoxetine (CYMBALTA) 60 mg capsule Take 1 capsule by mouth once daily. OLANZapine (ZYPREXA) 5 mg tablet Take 1 tablet by mouth daily at bedtime. doxepin capsule 10 mg Take 1 capsule by mouth daily at bedtime. metFORMIN (GLUCOPHAGE) 500 mg tablet Take 2 tablets by mouth twice daily with meals. albuterol HFA (PROAIR HFA) 90 mcg/actuation inhaler Inhale 2 Puffs as instructed every 4 hours as needed for wheezing/shortness of breath. riboflavin, vitamin B2, (VITAMIN B-2) 100 mg tab Take 2 tablets by mouth twice daily. omega-3 fatty acids 1,000 mg cap Take 1 capsule by mouth twice daily. Magnesium Oxide 250 mg magnesium tab Take 1 tablet by mouth twice daily. aspirin, enteric coated (ASPIRIN, ENTERIC COATED) 81 mg EC tablet Take 1 tablet by mouth once daily. multivitamin tablet Take 1 tablet by mouth once daily. fluticasone (FLONASE) 50 mcg/actuation nasal spray Use 1 [place] in each nostril once daily. Rinse mouth after use. esomeprazole (NEXIUM) 40 mg capsule Take 40 mg by mouth once daily. CPAP AUTO PAP 5-20 cmH20, CHIN STRAP, heated HUMIDITY, mask of patient's choice. LIFETIME SUPPLIES.SD Card. Download to [employer]. (Patient not taking: Reported on 07/22/2022) No current facility-administered medications on file prior to visit. Social History Social History Tobacco Use Smoking status: Never Smokeless tobacco: Never Vaping Use Vaping Use: Never used Substance Use Topics Alcohol use: Yes Comment: Rarely Drug use: No Review of Symptoms REVIEW OF SYSTEMS See hpi EXAM: BP 122/86 (BP Site: Left Arm, BP Position: Sitting, BP Cuff Size: Large Adult) Pulse 76 Temp 36.4 C (97.5 F) Resp 18 Wt 127.9 kg (282 lb) BMI 36.21 kg/m General Appearance: Well appearing, alert, in no acute distress, well-hydrated, well nourished. andObese. Skin: open wound on left buttocks near cleft still present. Wound probed to appox half a inch yet. No pain. Health Maintenance List COLORECTAL CANCER SCREENING due on 08/16/2022 HBA1C due on 09/04/2022 HEPATITIS B(3 of 3 - 3-dose series) due on 09/30/2022 DILATED RETINAL EXAM due on 12/01/2022 URINE ALBUMIN:CREATININE RATIO due on 06/04/2023 LDL CHOLESTEROL due on 06/04/2023 DIABETIC FOOT EXAM due on 06/04/2023 ANNUAL PCP TEAM CHRONIC DISEASE VISIT due on 08/11/2023 DTAP,TDAP,TD(3 - Td or Tdap) due on 04/13/2031 PNEUMOCOCCAL(3 - PPSV23 if available, else PCV20) due on 12/14/2039 INFLUENZA Completed COVID-19 VACCINE Completed SPIROMETRY Discontinued HEPATITIS C SCREENING Discontinued HIV SCREENING Discontinued Data reviewed ASSESSMENT/PLAN: 1. Abscess of buttock - ICD9: 682.5, ICD10: L02.31 (primary diagnosis) At this point, will consult gen surgery given concerns for possible pilonidal cyst and tract. If gen surgery does not feel that this is a pilonidal cyst, would route to wound care to help with poor wound healing. - CONSULT TO GENERAL SURGERY 2. Pilonidal cyst - ICD9: 685.1, ICD10: L05.91 As above. - CONSULT TO GENERAL SURGERY Kenyatta Castaneda PA-C documented in [facility] History of Present illness Narrative* Kenyatta Castaneda PA-C - 08/11/2022 10:47 AM EDT 08/11/2022 Patient presents with: Recheck SUBJECTIVE: This is a 46 year old that is here today for recheck abscess. Patient was seen 1 week ago for abscess on left side buttocks. Express provider did express purulent material during visit and he was placed on bactrim. Overall patient has noted improvement in symptoms. Still having some drainage. PAST MEDICAL HISTORY Diagnosis Date Agitation 03/31/2014 Allergic rhinitis 03/31/2014 Allergy-induced asthma 03/31/2014 Mild intermitant Current use of proton pump inhibitor 09/26/2018 Diabetic eye exam (HCC) 01/27/2017 Last eye exam: 03/05/2019 Diverticulosis 03/31/2014 Dyslipidemia 03/31/2014 Low HDL, High Trigs Elevated antinuclear antibody (JALEEL) level 03/31/2014 Family history of malignant neoplasm of gastrointestinal tract 03/31/2014 ISABELLA (generalized anxiety disorder) 06/22/2020 GERD without esophagitis 09/26/2018 Hiatal hernia 03/31/2014 Hx of colonic polyp 03/31/2014 Needs next colonoscopy 08/2022 Lump 11/16/2019 benign left palm Major depressive disorder with single episode, in partial remission ([facility]) 09/26/2018 Migraine without aura and without status migrainosus, not intractable 09/11/2015 Mood disorder ([facility]) 03/31/2014 Multiple thyroid nodules 02/27/[address] Lazaro 03/2018 Multiple thyroid nodules 02/27/2018 US 03/2020 per radiology no further f/u needed.. All benign Biopsy 03/[address] Lazaro. Benign. Obstructive sleep apnea syndrome 01/27/2017 On CPAP Other joint derangement, not elsewhere classified, lower leg 03/25/2013 Primary insomnia 07/28/2020 QT prolongation 04/20/2021 Seen [facility] 04/19/2021: Retsof to be benign and related to anti- depressants. No changes needed. TMJ (temporomandibular joint disorder) 03/31/2014 Right side Type 2 diabetes mellitus without complication, without long-term current use of insulin ([facility]) 01/19/2017 Well adult exam 12/17/2014 Last done:11/16/2019 ALLERGIES Topamax [Topiramate], Celexa [Citalopram Hydrobromide], Effexor [Venlafaxine Analogues], Reglan [Metoclopramide Hcl], and Zoloft [Sertraline Hcl] MEDICATIONS Current Outpatient Medications Medication Sig sulfamethoxazole-trimethoprim (BACTRIM DS) 800-160 mg per tablet Take 1 tablet by mouth twice dailyfor 10 days. insulin lispro protamine-insulin lispro (HumaLOG 75/25) pen Inject subcutaneously 25 units breakfast and 25 units dinner Insulin Wykoff, Disposable, (BD ULTRAFINE III MINI PEN) 31 gauge x 3/16 Use two pen needles daily Fenofibrate (LOFIBRA) 54 mg tablet Take 1 tablet by mouth once daily. atorvastatin (LIPITOR) 20 mg tablet Take 1 tablet by mouth once daily. zonisamide (ZONEGRAN) 25 mg capsule Take 1 capsule by mouth once daily. busPIRone (BUSPAR) 15 mg tablet Take one tab by mouth twice a day. DULoxetine (CYMBALTA) 60 mg capsule Take 1 capsule by mouth once daily. OLANZapine (ZYPREXA) 5 mg tablet Take 1 tablet by mouth daily at bedtime. doxepin capsule 10 mg Take 1 capsule by mouth daily at bedtime. metFORMIN (GLUCOPHAGE) 500 mg tablet Take 2 tablets by mouth twice daily with meals. albuterol HFA (PROAIR HFA) 90 mcg/actuation inhaler Inhale 2 Puffs as instructed every 4 hours as needed for wheezing/shortness of breath. riboflavin, vitamin B2, (VITAMIN B-2) 100 mg tab Take 2 tablets by mouth twice daily. omega-3 fatty acids 1,000 mg cap Take 1 capsule by mouth twice daily. Magnesium Oxide 250 mg magnesium tab Take 1 tablet by mouth twice daily. aspirin, enteric coated (ASPIRIN, ENTERIC COATED) 81 mg EC tablet Take 1 tablet by mouth once daily. multivitamin tablet Take 1 tablet by mouth once daily. fluticasone (FLONASE) 50 mcg/actuation nasal spray Use 1 [place] in each nostril once daily. Rinse mouth after use. esomeprazole (NEXIUM) 40 mg capsule Take 40 mg by mouth once daily. CPAP AUTO PAP 5-20 cmH20, CHIN STRAP, heated HUMIDITY, mask of patient's choice. LIFETIME SUPPLIES.SD Card. Download to [employer]. (Patient not taking: Reported on 07/22/2022) No current facility-administered medications for this visit. SOCIAL HISTORY Social History Tobacco Use Smoking status: Never Smokeless tobacco: Never Vaping Use Vaping Use: Never used Substance Use Topics Alcohol use: Yes Comment: Rarely Drug use: No REVIEW OF SYSTEMS All other reviewed and negative other than HPI. OBJECTIVE: BP 120/88 (BP Site: Left Arm, BP Position: Sitting, BP Cuff Size: Large Adult) Pulse 68 Temp 36.1 C (97 F) Resp 18 Wt 127.5 kg (281 lb) BMI 36.08 kg/m APPEARANCE Well appearing, alert, in no acute distress, well-hydrated, well nourished. SKIN open wound on left buttock in gluteal cleft region. No purulent discharge noted. Wound probed without any significant discharge expressed. ASSESSMENT/PLAN: 1. Abscess of buttock - ICD9: 682.5, ICD10: L02.31 (primary diagnosis) Finish atb. Given patient's uncontrolled diabetes and the location of the abscess, I would like to recheck in 1week to make sure wound is continuing to heal. If not healing appropriately, will set up with woundmanagement. 2. Encounter for immunization - ICD9: V03.89, ICD10: Z23 - INFLUENZA VACCINE QUADRIVALENT 6 MO - 64 YRS IM - [email or web address] COVID-19 BIVALENT BOOSTER VACCINE, AGE 12+ YR Kenyatta Castaneda PA-C documented in this encounterMer[facility]28[facility] Miscellaneous Notes* Telephone Encounter - Tam Daugherty MA - 08/05/2022 8:04 AM EDT Robin You scheduled next week for a follow up with your. Patient was seen yesterday in . Tam Daugherty MA documented in this encounterMer[facility]10-27-20[facility] History of Present illness Narrative* Emma Sheets APRN.CIRCUIT COURT CLERK - 08/04/2022 9:43 AM EDT SUBJECTIVE: Bianca Delarosa is a 46 year old male. Who presents today with a growth on this left buttock. This morning he noticed bleeding while he was in the shower. The area is tender and he is having difficulty sitting. He denies any fever. He has never had a growth in this area in the past. HPI PAST MEDICAL HISTORY Diagnosis Date Agitation 03/31/2014 Allergic rhinitis 03/31/2014 Allergy-induced asthma 03/31/2014 Mild intermitant Current use of proton pump inhibitor 09/26/2018 Diabetic eye exam (HCC) 01/27/2017 Last eye exam: 03/05/2019 Diverticulosis 03/31/2014 Dyslipidemia 03/31/2014 Low HDL, High Trigs Elevated antinuclear antibody (JALEEL) level 03/31/2014 Family history of malignant neoplasm of gastrointestinal tract 03/31/2014 ISABELLA (generalized anxiety disorder) 06/22/2020 GERD without esophagitis 09/26/2018 Hiatal hernia 03/31/2014 Hx of colonic polyp 03/31/2014 Needs next colonoscopy 08/2022 Lump 11/16/2019 benign left palm Major depressive disorder with single episode, 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 Lazaro 03/2018 Multiple thyroid nodules 02/27/2018 US 03/2020 per radiology no further f/u needed.. All benign Biopsy 03/[address] Lazaro. Benign. Obstructive sleep apnea syndrome 01/27/2017 On CPAP Other joint derangement, not elsewhere classified, lower leg 03/25/2013 Primary insomnia 07/28/2020 QT prolongation 04/20/2021 Seen [facility] 04/19/2021: Retsof to be benign and related to anti- depressants. No changes needed. TMJ (temporomandibular joint disorder) 03/31/2014 Right side Type 2 diabetes mellitus without complication, without long-term current use of insulin ([facility]) 01/19/2017 Well adult exam 12/17/2014 Last done:11/16/2019 FAMILY HISTORY Problem Relation Age of Onset Coronary Artery Disease Maternal Grandmother 60's Stroke Maternal Grandfather Colon Cancer Father 52 Coronary Artery Disease Father Colon Cancer Paternal Uncle 49 Coronary Artery Disease Mother 60's Hypertension Mother No Known Problems Brother No Known Problems Brother No Known Problems Brother Alzheimer's Disease No Family History Prostate Cancer No Family History Breast Cancer No Family History Hyperlipidemia No Family History Kidney Disease No Family History Seizures No Family History Thyroid No Family History Social History Tobacco Use Smoking status: Never Smokeless tobacco: Never Vaping Use Vaping Use: Never used Substance Use Topics Alcohol use: Yes Comment: Rarely Drug use: No ALLERGIES Allergen Reactions Topamax [Topiramate] Mental Status Change Unable to remember anything Celexa [Citalopram * Other: See Comments uneffective Effexor [Venlafaxin* Other: See Comments Sexual side affect Reglan [Metoclopram* Unknown Zoloft [Sertraline * Other: See Comments drowsy Current Outpatient Medications Medication Sig Dispense Refill insulin lispro protamine-insulin lispro (HumaLOG 75/25) pen Inject subcutaneously 25 units breakfast and 25 units dinner 15 mL 5 Insulin Wykoff, Disposable, (BD ULTRAFINE III MINI PEN) 31 gauge x 3/16 Use two pen needles Each 3 Fenofibrate (LOFIBRA) 54 mg tablet Take 1 tablet by mouth once daily. 90 tablet 1 atorvastatin (LIPITOR) 20 mg tablet Take 1 tablet by mouth once daily. 90 tablet 1 zonisamide (ZONEGRAN) 25 mg capsule Take 1 capsule by mouth once daily. 90 capsule 1 busPIRone (BUSPAR) 15 mg tablet Take one tab by mouth twice a day. 180 tablet 1 DULoxetine (CYMBALTA) 60 mg capsule Take 1 capsule by mouth once daily. 90 capsule 1 OLANZapine (ZYPREXA) 5 mg tablet Take 1 tablet by mouth daily at bedtime. 90 tablet 1 doxepin capsule 10 mg Take 1 capsule by mouth daily at bedtime. 90 capsule 1 metFORMIN (GLUCOPHAGE) 500 mg tablet Take 2 tablets by mouth twice daily with meals. 360 tablet 3 albuterol HFA (PROAIR HFA) 90 mcg/actuation inhaler Inhale 2 Puffs as instructed every 4 hours as needed for wheezing/shortness of breath. 1 Inhaler 1 riboflavin, vitamin B2, (VITAMIN B-2) 100 mg tab Take 2 tablets by mouth twice daily. 360 tablet 1 omega-3 fatty acids 1,000 mg cap Take 1 capsule by mouth twice daily. 180 capsule 3 Magnesium Oxide 250 mg magnesium tab Take 1 tablet by mouth twice daily. 180 tablet 3 aspirin, enteric coated (ASPIRIN, ENTERIC COATED) 81 mg EC tablet Take 1 tablet by mouth once daily. multivitamin tablet Take 1 tablet by mouth once daily. 0 fluticasone (FLONASE) 50 mcg/actuation nasal spray Use 1 [place] in each nostril once daily. Rinse mouth after use. 1 Bottle 11 esomeprazole (NEXIUM) 40 mg capsule Take 40 mg by mouth once daily. CPAP AUTO PAP 5-20 cmH20, CHIN STRAP, heated HUMIDITY, mask of patient's choice. LIFETIME SUPPLIES.SD Card. Download to [employer]. (Patient not taking: Reported on 07/22/2022) 1 Device 99 No current facility-administered medications for this visit. OBJECTIVE: BP 122/72 Pulse 90 Temp 37.2 C (98.9 F) Resp 24 Wt 125.6 kg (277 lb) SpO2 96% BMI 35.56kg/m ROS all other systems reviewed and are negative Physical Exam Constitutional: Well developed, well nourished, NAD, A&O X3. ENT: Head is atraumatic, airway patent, mucosal membranes moist. Neck: supple with no palpable lymph nodes : no CVA tenderness MS: no swelling, tenderness or deformity in upper or lower extremities, no midline tenderness in cervical, thoracic or lumbar spine. Neuro: strength sensation and coordination intact. CN II-XII grossly intact, Skin: warm and dry with out rash large abscess in noted on left buttock between the gluteal fold. Alarge amount of purulent fluid is draining there is redness surrounding the area Psych: alert appropriate, speech clear It was a pleasure to take care of Bianca Delarosa today. A large amount of purulent fluid was expressed. He will do warm soaks at home. I will give him antibiotics for the cellulitis. He may take motrin or tylenol for pain. Patient will follow up with family physician. They may return to the Urgent Care or go to the ER for worsening symptoms or concerns. Patient verbalized understanding of plan of care and is in agreement. ASSESSMENT/PLAN: 1. Cellulitis of skin - ICD9: 682.9, ICD10: L03.90 (primary diagnosis) - SULFAMETHOXAZOLE 800 MG-TRIMETHOPRIM 160 MG TABLET 2. Abscess - ICD9: 682.9, ICD10: L02.91 Emma Sheets APRN.CHRISTOPHER documented in this encounterMer[facility]10[facility]12-[facility] History of Present illness Narrative* Heather Garcia LPN - 07/20/2022 10:42 AM EDT Patient presents for Hepatitis B vaccine. Denies any problems at this time. Tolerated injection well. Heather Garcia LPN documented in this encounterMer[facility]09-02-[facility] History of Present illness Narrative* Heather Garcia LPN - 06/10/2022 3:43 PM EDT Patient presents for Hepatitis B vaccine. Denies any problems at this time. Tolerated injection well. Heather Garcia LPN documented in this encounterMer[facility]08-30-2022 Instructions* Patient Instructions* Torres Monaco APRN.CNP - 06/07/2022 8:11 AM EDT Stop glimepiride 2. Stop lantus. 3. Continue metformin . 4. Start humalog 75/25 taking: Breakfast 25 units Dinner 25 units 5. Check sugar 2 x per day-- breakfast and dinner and occasionally before bedtime. 6. Send me sugars every 2 wks. Sooner if needed. 7. Follow up in 3 months BUCK Dale, TAX ACCOUNTANT, MANAGER DISASTER RECOVERY-C, CDE Endocrinology [facility]/[place] [id number] Fax: documented in this encounterMercy [facility]08-30-2022 History of Present illness Narrative* Torres Monaco APRN.CHRISTOPHER - 06/07/2022 8:00 AM EDT Reason for Consultation: DM Type 2 Referring Physician: No referring provider defined for this encounter. HISTORY OF PRESENT ILLNESS; Mr. Delarosa is a 46 year old male presenting for follow up regarding DM Type 2. He was initiallydiagnosed with diabetes in 2019. He does not have a family history of diabetes mellitus in his family . 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 He is under the care of cardiology, ortho. His current diabetes regimen is: Glimepiride 4 mg daily jardiance 25 mg daily---not taking d/t cost Metformin 500 mg 2 tabs BID Ozempic 0.25 mg weekly--not taking d/t cost and stomach upset Lantus 40 units daily Previous DM medication: None Regarding symptoms of hyperglycemia, he is not experiencing polydipsia but denies polyuria, weight loss, blurry vision. Exercise: limited due to torn meniscus Bianca is checking his blood glucose once daily He did not bring a logbook today for review: HS high 200's Hypoglycemia frequency: denies Hypoglycemia awareness: Yes Overall, the patient has no acute complaints at this time. PAST MEDICAL HISTORY Diagnosis Date Agitation 03/31/2014 Allergic rhinitis 03/31/2014 Allergy-induced asthma 03/31/2014 Mild intermitant Current use of proton pump inhibitor 09/26/2018 Diabetic eye exam (HCC) 01/27/2017 Last eye exam: 03/05/2019 Diverticulosis 03/31/2014 Dyslipidemia 03/31/2014 Low HDL, High Trigs Elevated antinuclear antibody (JALEEL) level 03/31/2014 Family history of malignant neoplasm of gastrointestinal tract 03/31/2014 ISABELLA (generalized anxiety disorder) 06/22/2020 GERD without esophagitis 09/26/2018 Hiatal hernia 03/31/2014 Hx of colonic polyp 03/31/2014 Needs next colonoscopy 08/2022 Lump 11/16/2019 benign left palm Major depressive disorder with single episode, in partial remission ([facility]) 09/26/2018 Migraine without aura and without status migrainosus, not intractable 09/11/2015 Mood disorder ([facility]) 03/31/2014 Multiple thyroid nodules 02/27/[address] Lazaro 03/2018 Multiple thyroid nodules 02/27/2018 US 03/2020 per radiology no further f/u needed.. All benign Biopsy 03/[address] Lazaro. Benign. Obstructive sleep apnea syndrome 01/27/2017 On CPAP Other joint derangement, not elsewhere classified, lower leg 03/25/2013 Primary insomnia 07/28/2020 QT prolongation 04/20/2021 Seen [facility] 04/19/2021: Retsof to be benign and related to anti- depressants. No changes needed. TMJ (temporomandibular joint disorder) 03/31/2014 Right side Type 2 diabetes mellitus without complication, without long-term current use of insulin (HCC) 01/19/2017 Well adult exam 12/17/2014 Last done:11/16/2019 PAST SURGICAL HISTORY Procedure Laterality Date APPENDECTOMY HX 2004 ARTHROTOMY W/MENISCUS REPAIR KNEE Right 04/2021 COLONOSCOPY 06/2012 Dr. Corrigan +polyp, repeat 5 yrs COLONOSCOPY FLX DX W/COLLJ SPEC WHEN PFRMD 08/16/2017 Colonoscopy, repeat 5 yrs, Dr. Bliss PAST SURGICAL HISTORY OF 2009 benign cysts: 1 from head and 2 from neck TONSILLECTOMY & ADENOIDECTOMY AGE 11/> 1980 FAMILY HISTORY Problem Relation Age of Onset Coronary Artery Disease Maternal Grandmother 60's Stroke Maternal Grandfather Colon Cancer Father 52 Coronary Artery Disease Father Colon Cancer Paternal Uncle 49 Coronary Artery Disease Mother 60's Hypertension Mother No Known Problems Brother No Known Problems Brother No Known Problems Brother Alzheimer's Disease No Family History Prostate Cancer No Family History Breast Cancer No Family History Hyperlipidemia No Family History Kidney Disease No Family History Seizures No Family History Thyroid No Family History Social History Tobacco Use Smoking status: Never Smokeless tobacco: Never Vaping Use Vaping Use: Never used Substance Use Topics Alcohol use: Yes Comment: Rarely Drug use: No Current Outpatient Medications Medication Sig Dispense Refill Fenofibrate (LOFIBRA) 54 mg tablet Take 1 tablet by mouth once daily. 90 tablet 1 atorvastatin (LIPITOR) 20 mg tablet Take 1 tablet by mouth once daily. 90 tablet 1 zonisamide (ZONEGRAN) 25 mg capsule Take 1 capsule by mouth once daily. 90 capsule 1 busPIRone (BUSPAR) 15 mg tablet Take one tab by mouth twice a day. 180 tablet 1 DULoxetine (CYMBALTA) 60 mg capsule Take 1 capsule by mouth once daily. 90 capsule 1 OLANZapine (ZYPREXA) 5 mg tablet Take 1 tablet by mouth daily at bedtime. 90 tablet 1 doxepin capsule 10 mg Take 1 capsule by mouth daily at bedtime. 90 capsule 1 insulin glargine (LANTUS SOLOSTAR U-100 INSULIN) 100 unit/mL (3 mL) INJECT SUBCUTANEOUSLY 40 UNITS DAILY AT BEDTIME 15 mL 11 metFORMIN (GLUCOPHAGE) 500 mg tablet Take 2 tablets by mouth twice daily with meals. 360 tablet 3 glimepiride (AMARYL) 4 mg tablet Take 1 tablet by mouth daily with breakfast. 90 tablet 3 Insulin Wykoff, Disposable, (BD ULTRAFINE III MINI PEN) 31 gauge x 3/16 Use one pen needles [id number] Each 3 albuterol HFA (PROAIR HFA) 90 mcg/actuation inhaler Inhale 2 Puffs as instructed every 4 hours as needed for wheezing/shortness of breath. 1 Inhaler 1 riboflavin, vitamin B2, (VITAMIN B-2) 100 mg tab Take 2 tablets by mouth twice daily. 360 tablet 1 omega-3 fatty acids 1,000 mg cap Take 1 capsule by mouth twice daily. 180 capsule 3 Magnesium Oxide 250 mg magnesium tab Take 1 tablet by mouth twice daily. 180 tablet 3 aspirin, enteric coated (ASPIRIN, ENTERIC COATED) 81 mg EC tablet Take 1 tablet by mouth once daily. multivitamin tablet Take 1 tablet by mouth once daily. 0 fluticasone (FLONASE) 50 mcg/actuation nasal spray Use 1 [place] in each nostril once daily. Rinse mouth after use. 1 Bottle 11 esomeprazole (NEXIUM) 40 mg capsule Take 40 mg by mouth once daily. JARDIANCE 25 mg tablet Take 1 tablet by mouth once daily. (Patient not taking: No sig reported) 30 tablet 11 semaglutide (OZEMPIC) 0.25 mg or 0.5 mg(2 mg/1.5 mL) pen injector Inject 0.25 mg weekly x 4 wks then increase to 0.5 mg weekly (Patient not taking: No sig reported) 1.5 mL 5 CPAP AUTO PAP 5-20 cmH20, CHIN STRAP, heated HUMIDITY, mask of patient's choice. LIFETIME SUPPLIES.SD Card. Download to [employer]. (Patient not taking: No sig reported) 1 Device 99 lancets (ONE TOUCH DELICA) 33 gauge misc Test blood sugar(s) 1-2 times daily. Dx: 250.00. Insulin: No (Patient not taking: No sig reported) 200 Each 3 blood sugar diagnostic (ONETOUCH VERIO) test strip Test blood sugar 1-2 times daily. E11.9 (Patientnot taking: No sig reported) 100 Strip 0 No current facility-administered medications for this visit. Allergies As of Date: 06/07/2022 Allergen Noted Reaction TOPAMAX [TOPIRAMATE] 02/04/2014 Mental Status Change CELEXA [CITALOPRAM HYDROBROMIDE] 10/22/2014 Other: See Comments EFFEXOR [VENLAFAXINE ANALOGUES] 10/22/2014 Other: See Comments REGLAN [METOCLOPRAMIDE HCL] 01/24/2007 Unknown ZOLOFT [SERTRALINE HCL] 10/22/2014 Other: See Comments Fully Assessed 06/07/2022 REVIEW OF SYSTEMS: Answers submitted by the patient for this visit: Endocrine Review of Systems (Submitted on 06/05/2022) Fatigue: No Night Sweats: Yes Recent Unintentional Weight Change: No Skin Color Changes: No Post-Nasal Drip: No Thyroid Pain (lower neck): No Trouble Swallowing: No Vision Disturbance: No Chest Pain: No Leg Swelling: Yes Blood Clots?: No Leg Pain while walking?: No Difficulty Breathing?: No Heartburn: No Nausea: No Vomiting?: No Diarrhea: No Constipation: No Abdominal Pain: No Bone Pain?: No Muscle Aches: No Muscle Weakness: No Joint Pain or Stiffness: Yes Headaches: Yes Dizziness: No Numbness?: No Urgency to Urinate?: No Increased Urination?: No Slow or Small Urine Stream?: No Flushing?: No Hot Flashes?: No Increased Thirst: No Change in Body Hair?: No Cold Intolerance: No Heat Intolerance?: No Core Review of Systems (Submitted on 06/05/2022) Night Sweats: Yes Recent Unintentional Weight Change: No Vision Disturbance: No Chest Pain: No Leg Swelling: Yes Difficulty Breathing?: No Nausea: No Diarrhea: No Muscle Aches: No Joint Pain or Stiffness: Yes Headaches: Yes Dizziness: No Fever : No Nasal Congestion: No Hearing Loss: No A Cough: No Irregular Heart Beat: No Black Tarry Stools: No Difficulty Urinating?: No Awaken at Night More Than Once to Urinate?: No Leg or Foot Discomfort at Night?: No A Rash: No Memory Loss: No Seizures: No PHYSICAL EXAM: BP 132/88 (BP Site: Left Arm, BP Position: Sitting, BP Cuff Size: Regular Adult) Pulse 79 Wt 134.6 kg (296 lb 12.8 oz) SpO2 95% BMI 37.89 kg/m2 Physical Exam Constitutional: Appearance: Normal appearance. He is obese. Cardiovascular: Rate and Rhythm: Normal rate and regular rhythm. Pulmonary: Effort: Pulmonary effort is normal. Breath sounds: Normal breath sounds. Skin: General: Skin is warm and dry. Neurological: Mental Status: He is alert and oriented to person, place, and time. Psychiatric: Mood and Affect: Mood normal. Behavior: Behavior normal. DATA: Creatinine Date Value Ref Range Status 06/04/2022 0.71 (L) 0.73 - 1.22 mg/dL Final Hemoglobin A1C (%) Date Value 06/04/2022 10.8 03/24/2021 8.0 Hemoglobin A1C (POCT) (%) Date Value 03/04/2022 10.5 ) No components found for: URINEALBUMIN Cholesterol, Total (mg/dL) Date Value 06/04/2022 129 02/20/2018 230 Total Cholesterol, Nonfasting (mg/dL) Date Value 12/22/2020 159 HDL Cholesterol (mg/dL) Date Value 06/04/2022 27 02/20/2018 30 HDL Cholesterol, Nonfasting (mg/dL) Date Value 12/22/2020 30 LDL Cholesterol (mg/dL) Date Value 06/04/2022 57 01/25/2017 129 LDL Cholesterol, Nonfasting (mg/dL) Date Value 12/22/2020 70 Triglyceride (mg/dL) Date Value 06/04/2022 227 02/20/2018 158 Triglycerides, Nonfasting (mg/dL) Date Value 12/22/2020 296 IMPRESSION: Mr. Delarosa is a 46 year old male here for evaluation of DM Type 2 complicated by dyslipidemia, obesity. RECOMMENDATIONS: (E11.9) Type 2 diabetes mellitus without complication, without long-term current use of insulin ([facility]) (primary encounter diagnosis) Comment: Glycemic control is poor. SGLT2 and GLP1 are cost prohibitive. He cannot take a prandial insulin into work with him a a intermediate. Will switch to mixed insulin. We reviewed the timing of injections in relation to meals and when to check BG levels. Advised he is to ensure he is eating when taking the insulin to avoid hypoglycemia. Plan: insulin lispro protamine-insulin lispro (HumaLOG 75/25) pen, Insulin Wykoff, Disposable, (BD ULTRAFINE III MINI PEN) 31 gauge x 3/16 Stop glimepiride Stop lantus. Continue metformin . Start humalog 75/25 taking: Breakfast 25 units Dinner 25 units Check sugar 2 x per day-- breakfast and dinner and occasionally before bedtime. Send me sugars every 2 wks. Sooner if needed. Follow up in 3 months (E78.5) Dyslipidemia Comment/Plan/Managed per PCP (E66.01, Z68.37) Class 2 severe obesity with serious comorbidity and body mass index (BMI) of 37.0 to 37.9 in adult, unspecified obesity type (HCC) Comment: Body mass index is 37.89 kg/m . Plan: Encouraged increase dietary and exercise efforts as able Medical Decision Making: Level: 3 - Low Torres Monaco, MSN, TAX ACCOUNTANT, MANAGER [employer]-C, CDE Endocrinology [facility] Medical Office [facility]/[address], [address] [place], [place] [address] Fax: documented in this encounterMer[facility]08[facility]29-2022 Miscellaneous Notes* Telephone Encounter - Tam Daugherty MA - 06/06/2022 12:42 PM EDT Patient was scheduled. Tam Daugherty MA * Telephone Encounter - Kenyatta Castaneda PA-C - 06/06/2022 12:25 PM EDT done * Telephone Encounter - Tam Daugherty MA - 06/06/2022 10:58 AM EDT Patient notified and voiced understanding. Please order for Hep B * Telephone Encounter - Humberto Jackson MD - 06/05/2022 8:57 PM EDT Let patient know his Hep B shows he is not immune. He should come in and start the Hep B series. CBC, B12 and Mg were all ok. UA ok except spilling sugar. documented in this encounterMer[facility]08-27-[facility] History of Present illness Narrative* Humberto Jackson MD - 06/04/2022 10:26 AM EDT Images from the original note were not included. Chief Complaint Patient presents with: Physical HPI Bianca Delarosa is a 46 year old male who presents here today for Above Complaints. and Chronic Medical Conditions.. Patient with hx of DM 2, hyperlipidemia, GERD, mood disorder, thyroid nodules, allergies, depression, migraines, insomnia, MIKE as well as those reviewed and addressed below and in ROS Seeing Endo. Has been working on diet and exercise and has lost some weight. Past medical history, appointments, medications, allergies reviewed. Previous Medical History PAST MEDICAL HISTORY Diagnosis Date Agitation 03/31/2014 Allergic rhinitis 03/31/2014 Allergy-induced asthma 03/31/2014 Mild intermitant Current use of proton pump inhibitor 09/26/2018 Diabetic eye exam (HCC) 01/27/2017 Last eye exam: 03/05/2019 Diverticulosis 03/31/2014 Dyslipidemia 03/31/2014 Low HDL, High Trigs Elevated antinuclear antibody (JALEEL) level 03/31/2014 Family history of malignant neoplasm of gastrointestinal tract 03/31/2014 ISABELLA (generalized anxiety disorder) 06/22/2020 GERD without esophagitis 09/26/2018 Hiatal hernia 03/31/2014 Hx of colonic polyp 03/31/2014 Needs next colonoscopy 08/2022 Lump 11/16/2019 benign left palm Major depressive disorder with single episode, 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 Lazaro 03/2018 Multiple thyroid nodules 02/27/2018 US 03/2020 per radiology no further f/u needed.. All benign Biopsy 03/[address] Lazaro. Benign. Obstructive sleep apnea syndrome 01/27/2017 On CPAP Other joint derangement, not elsewhere classified, lower leg 03/25/2013 Primary insomnia 07/28/2020 QT prolongation 04/20/[address] [facility]: [place] to be benign and related to anti- depressants. No changes needed. TMJ (temporomandibular joint disorder) 03/31/2014 Right side Type 2 diabetes mellitus without complication, without long-term current use of insulin (HCC) 01/19/2017 Well adult exam 12/17/2014 Last done:11/16/2019 Previous Surgical History PAST SURGICAL HISTORY Procedure Laterality Date APPENDECTOMY HX 2004 COLONOSCOPY 06/2012 Dr. Corrigan +polyp, repeat 5 yrs COLONOSCOPY FLX DX W/COLLJ SPEC WHEN PFRMD 08/16/2017 Colonoscopy, repeat 5 yrs, Dr. Bliss PAST SURGICAL HISTORY OF 2009 benign cysts: 1 from head and 2 from neck TONSILLECTOMY & ADENOIDECTOMY AGE 11/> 1979 Family History FAMILY HISTORY Problem Relation Age of Onset Coronary Artery Disease Maternal Grandmother 60's Stroke Maternal Grandfather Colon Cancer Father 52 Coronary Artery Disease Father Colon Cancer Paternal Uncle 49 Coronary Artery Disease Mother 60's Hypertension Mother No Known Problems Brother No Known Problems Brother No Known Problems Brother Alzheimer's Disease No Family History Prostate Cancer No Family History Breast Cancer No Family History Hyperlipidemia No Family History Kidney Disease No Family History Seizures No Family History Thyroid No Family History Patient Allergies ALLERGIES Allergen Reactions Topamax [Topiramate] Mental Status Change Unable to remember anything Celexa [Citalopram * Other: See Comments uneffective Effexor [Venlafaxin* Other: See Comments Sexual side affect Reglan [Metoclopram* Unknown Zoloft [Sertraline * Other: See Comments drowsy Current Medications Current Outpatient Medications on File Prior to Visit Medication Sig atorvastatin (LIPITOR) 20 mg tablet Take 1 tablet by mouth once daily. Fenofibrate (LOFIBRA) 54 mg tablet Take 1 tablet by mouth once daily. zonisamide (ZONEGRAN) 25 mg capsule Take 1 capsule by mouth once daily. busPIRone (BUSPAR) 15 mg tablet Take one tab by mouth twice a day. DULoxetine (CYMBALTA) 60 mg capsule Take 1 capsule by mouth once daily. OLANZapine (ZYPREXA) 5 mg tablet Take 1 tablet by mouth daily at bedtime. insulin glargine (LANTUS SOLOSTAR U-100 INSULIN) 100 unit/mL (3 mL) INJECT SUBCUTANEOUSLY 40 UNITS DAILY AT BEDTIME metFORMIN (GLUCOPHAGE) 500 mg tablet Take 2 tablets by mouth twice daily with meals. glimepiride (AMARYL) 4 mg tablet Take 1 tablet by mouth daily with breakfast. Insulin Wykoff, Disposable, (BD ULTRAFINE III MINI PEN) 31 gauge x 3/16 Use one pen needles daily albuterol HFA (PROAIR HFA) 90 mcg/actuation inhaler Inhale 2 Puffs as instructed every 4 hours as needed for wheezing/shortness of breath. doxepin capsule 10 mg Take 1 capsule by mouth daily at bedtime. riboflavin, vitamin B2, (VITAMIN B-2) 100 mg tab Take 2 tablets by mouth twice daily. omega-3 fatty acids 1,000 mg cap Take 1 capsule by mouth twice daily. Magnesium Oxide 250 mg magnesium tab Take 1 tablet by mouth twice daily. aspirin, enteric coated (ASPIRIN, ENTERIC COATED) 81 mg EC tablet Take 1 tablet by mouth once daily. multivitamin tablet Take 1 tablet by mouth once daily. fluticasone (FLONASE) 50 mcg/actuation nasal spray Use 1 [place] in each nostril once daily. Rinse mouth after use. esomeprazole (NEXIUM) 40 mg capsule Take 40 mg by mouth once daily. JARDIANCE 25 mg tablet Take 1 tablet by mouth once daily. (Patient not taking: Reported on 06/04/2022) semaglutide (OZEMPIC) 0.25 mg or 0.5 mg(2 mg/1.5 mL) pen injector Inject 0.25 mg weekly x 4 wks then increase to 0.5 mg weekly (Patient not taking: Reported on 06/04/2022) CPAP AUTO PAP 5-20 cmH20, CHIN STRAP, heated HUMIDITY, mask of patient's choice. LIFETIME SUPPLIES.SD Card. Download to [employer]. (Patient not taking: Reported on 03/04/2021 ) lancets (ONE TOUCH DELICA) 33 gauge misc Test blood sugar(s) 1-2 times daily. Dx: 250.00. Insulin: No (Patient not taking: Reported on 06/04/2022) blood sugar diagnostic (ONETOUCH VERIO) test strip Test blood sugar 1-2 times daily. E11.9 (Patientnot taking: Reported on 06/04/2022) No current facility-administered medications on file prior to visit. Social History Social History Tobacco Use Smoking status: Never Smokeless tobacco: Never Vaping Use Vaping Use: Never used Substance Use Topics Alcohol use: Yes Comment: Rarely Drug use: No Review of Symptoms REVIEW OF SYSTEMS GENERAL: No weight loss, malaise or fevers HEENT: Negative for frequent or significant headaches, No changes in hearing or vision, no nose bleeds or other nasal problems NECK: Negative for lumps, goiter, pain and significant neck swelling RESPIRATORY: Negative for cough, hemoptysis, wheezing, COPD, dyspnea or shortness of breath CARDIOVASCULAR: Negative for chest pain, increased leg swelling, hypertension, CHF or palpitations GI: No nausea, vomiting, or diarrhea and No heartburn or reflux symptoms : No history of dysuria, blood MUSCULOSKELETAL: Negative for joint pain or swelling, back pain or muscle pain SKIN: Negative for lesions, rash, and itching PSYCH: Negative for mood disorder and recent psychosocial stressors. Wakes up some nights and then hard to far asleep. HEMATOLOGY/LYMPHOLOGY: Negative for prolonged bleeding, bruising easily or swollen nodes ENDOCRINE: Negative for cold or heat intolerance, symptoms of low BS's NEURO: No history of headaches, syncope, paralysis, seizures or tremors. has noticed he seems to be less focused. He has not been wearing his CPAP. EXAM: BP 122/86 (BP Site: Left Arm, BP Position: Sitting, BP Cuff Size: Large Adult) Pulse 72 Temp 36.2 C (97.2 F) Resp 18 Ht 188.5 cm (6' 2.21) Wt 132.5 kg (292 lb) BMI 37.28 kg/m Last 5 Encounter Wt Readings: Date: Wt: 06/04/2022 132.5 kg (292 lb) 03/04/2022 137.8 kg (303 lb 12.8 oz) 10/15/2021 134.7 kg (297 lb) 04/13/2021 137 kg (302 lb) 03/04/2021 137.9 kg (304 lb) General Appearance: Well appearing, alert, in no acute distress, well-hydrated, well nourished. andObese. Skin: Skin color, texture, turgor normal, no suspicious rashes or lesions. Head: Normocephalic, no masses, lesions, tenderness or abnormalities. Eyes: Anicteric sclera. Pupils are equally round and reactive to light. Extraocular movements are intact. . Ears: External ears, TM's normal, canals clear. Neck: Supple, no adenopathy; thyroid symmetric, normal size, no bruits. Lungs: Lungs clear to auscultation. No wheezing, rhonchi, rales.. Heart: RRR without murmur, gallop, or rubs. No ectopy. Abdomen: Normal abdominal exam, Abdomen soft, non-tender. Bowel sounds normal. No masses, organomegaly. Extremities: No deformities, edema, skin discoloration, clubbing or cyanosis. Good capillary refill. . Musculoskeletal: Spine range of motion normal. Muscular strength intact, No joint swelling, deformity, or tenderness. Peripheral Pulses: Normal. Neurologic: Gait normal. Reflexes normal and symmetric. Sensation to light touch and crainal nerves2-12 intact.. Genitalia: Normal, Penis normal. No urethral discharge. Scrotum normal to palpation. No hernia.. Diabetic Foot Exam: Feet: Shoes and socks removed, no deformities, ulcers, calluses, normal distal pulses, sensitive to10 gm microfilament, and vibratory exam within normal limits Skin: warm, dry, no callouses or ulcer, and normal hair growth Vascular Pulses: Normal SEMMES-SONU MONOFILAMENT TESTING Left Foot Right Foot Dorsal Surface Intact Dorsal Surface Intact Plantar Surface Intact Plantar Surface Intact Health Maintenance List HEPATITIS B(1 of 3 - 3-dose series) Never done HEPATITIS C SCREENING Never done HIV SCREENING Never done URINE ALBUMIN:CREATININE RATIO due on 12/22/2021 LDL CHOLESTEROL due on 12/22/2021 HBA1C due on 06/04/2022 INFLUENZA(1) due on 06/09/2022 COLORECTAL CANCER SCREENING due on 08/16/2022 DILATED RETINAL EXAM due on 12/01/2022 DIABETIC FOOT EXAM due on 03/04/2023 ANNUAL PCP TEAM CHRONIC DISEASE VISIT due on 06/04/2023 DTAP,TDAP,TD(3 - Td or Tdap) due on 04/13/2031 PNEUMOCOCCAL(3 - PPSV23 or PCV20) due on 12/14/2039 COVID-19 VACCINE Completed SPIROMETRY Discontinued Data reviewed A/P ASSESSMENT/PLAN: 1. Well adult exam - ICD9: V70.0, ICD10: Z00.00 (primary diagnosis) - Counseled on healthy diet and regular exercise - Follow up for annual exam in one year 2. Type 2 diabetes mellitus without complication, without long-term current use of insulin (HCC) - ICD9: 250.00, ICD10: E11.9 Seeing Endo for management - Continue current medications - Encouraged regular aerobic exercise and weight loss - BP goal of <130/80 - LDL goal of <100 - CBC + DIFF - URINALYSIS, WITH MICROSCOPIC 3. Diabetic eye exam (HCC) - ICD9: V72.0, 250.00, ICD10: Z01.00, E11.9 - up to date 4. Dyslipidemia - ICD9: 272.4, ICD10: E78.5 - to be determined upon return of lab results - Encouraged following a low fat, low cholesterol diet. - Discussed the benefits of regular aerobic exercise and weight loss. - Encouraged following a low carbohydrate, healthy oil intake diet. - Continue current therapy. - URINALYSIS, WITH MICROSCOPIC 5. Migraine without aura and without status migrainosus, not intractable - ICD9: 346.10, ICD10: G43.009 - stable 6. GERD without esophagitis - ICD9: 530.81, ICD10: K21.9 - Continue treatment with Nexium 40 mg every day Check - VITAMIN B12 BLOOD - MAGNESIUM BLD 7. ISABELLA (generalized anxiety disorder) - ICD9: 300.02, ICD10: F41.1 - stable with Tx. 8. Major depressive disorder with single episode, in partial remission (HCC) - ICD9: 296.25, ICD10:F32.4 - asper #7 9. Mood disorder (HCC) - ICD9: 296.90, ICD10: F39 - as per #7 10. Obstructive sleep apnea syndrome - ICD9: 327.23, ICD10: G47.33 - CONSULT TO SLEEP MEDICINE - ADULT: being off the CPAP may be source for the restless sleep and the lack of focus. 11. Primary insomnia - ICD9: 307.42, ICD10: F51.01 - no changes in meds. 12. Allergic rhinitis, unspecified seasonality, unspecified trigger - ICD9: 477.9, ICD10: J30.9 - stable 13. Need for hepatitis B screening test - ICD9: V73.89, ICD10: Z11.59 Check - HEPB S AB IMMUNITY 14. Medication management - ICD9: V58.69, ICD10: Z79.899 Check - VITAMIN B12 BLOOD - MAGNESIUM BLD F/u in 6 months routine Humberto Jackson MD documented in this encounterCleveland [id number] Miscellaneous Notes* Telephone Encounter - Juhi Murillo RN - 04/28/2022 8:51 AM EDT Patient called and notified that appointment needs to be made. Patient set up appointment for 06/04 * Telephone Encounter - Augustina Wilkinson LPN - 04/28/2022 8:18 AM EDT Left a message for pt to call the office and ask to speak to a nurse. Augustina Wilkinson LPN * Telephone Encounter - Humberto Jackson MD - 04/27/2022 8:47 PM EDT Let patient know meds refilled for 30 days. He has not had a routine exam since his physical 12/22/2020. The following approved medication requests have been transmitted electronically. Signed Prescriptions Disp Refills atorvastatin (LIPITOR) 20 mg tablet 30 tablet 0 Sig: Take 1 tablet by mouth once daily. TAMIKO: No Authorizing Provider: HUMBERTO JACKSON Fenofibrate (LOFIBRA) 54 mg tablet 30 tablet 0 Sig: Take 1 tablet by mouth once daily. TAMIKO: No Authorizing Provider: HUMBERTO JACKSON zonisamide (ZONEGRAN) 25 mg capsule 30 capsule 0 Sig: Take 1 capsule by mouth once daily. TAMIKO: No Authorizing Provider: HUMBERTO JACKSON MD * Telephone Encounter - Dimple Castellon LPN - 04/27/2022 6:30 PM EDT Patient phones requesting refills as follows: Pending Prescriptions Disp Refills ATORVASTATIN 20 MG TABLET 30 tablet 0 Sig: Take 1 tablet by mouth once daily. TAMIKO: No FENOFIBRATE 54 MG TABLET 30 tablet 0 Sig: Take 1 tablet by mouth once daily. TAMIKO: No ZONISAMIDE 25 MG CAPSULE 30 capsule 0 Sig: Take 1 capsule by mouth once daily. TAMIKO: No JULIO-10/15/21 Labs-04/13/21 NOV-none meds filled 01/05/22 Please review and advise. Dimple Castellon LPN documented in this encounterMer[facility]07-21-2022 Miscellaneous Notes* Telephone Encounter - Aneta Calvin RN - 04/28/2022 7:49 AM EDT Please review. Patient is referring to Richelle. documented in this encounterMercy Health [facility]. [facility]07-20-2022 Miscellaneous Notes* Telephone Encounter - Humberto Jackson MD - 04/27/2022 8:49 PM EDT The following approved medication requests have been transmitted electronically. Signed Prescriptions Disp Refills busPIRone (BUSPAR) 15 mg tablet 60 tablet 0 Sig: Take one tab by mouth twice a day. TAMIKO: No Authorizing Provider: HUMBERTO JACKSON DULoxetine (CYMBALTA) 60 mg capsule 30 capsule 0 Sig: Take 1 capsule by mouth once daily. TAMIKO: No Authorizing Provider: HUMBERTO JACKSON OLANZapine (ZYPREXA) 5 mg tablet 30 tablet 0 Sig: Take 1 tablet by mouth daily at bedtime. TAMIKO: No Authorizing Provider: HUMBERTO JACKSON MD * Telephone Encounter - Tia Ibarra Ma - 04/27/2022 7:13 PM EDT Last office visit: 10/15/21 F/u scheduled: none Tia Ibarra Ma documented in this encounterMercy Health St. [facility]05-27-2022 Instructions* Patient Instructions* Torres Monaco APRN.[facility] - 03/04/2022 8:42 AM EDT 1. Continue glimepiride, jardiance, metformin. 2. Continue lantus 40 units daily at bedtime. 3. Stop humalog 4. Start ozempic 0.25 mg weekly x 4 wks then increase to 0.5 mg weekly. 5. Follow up in 3 months with labs prior Torres Monaco, MSN, TAX ACCOUNTANT, MANAGER [employer]OV[employer]-C, CDE Endocrinology [facility] Medical Office [facility]/[address] [place], [place] [address] Fax: documented in this encounterMercy Health St. [facility]05-27-2022 History of Present illness Narrative* Torres Monaco APRN.CHRISTOPHER - 03/04/2022 8:30 AM EDT Reason for Consultation: DM Type 2 Referring Physician: No referring provider defined for this encounter. HISTORY OF PRESENT ILLNESS; Mr. Delarosa is a 46 year old male presenting for follow up regarding DM Type 2. He was initiallydiagnosed with diabetes in 2019. He does not have a family history of diabetes mellitus in his family . 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 Reports always feeling hungry. History in addition to diabetes:dyslipidemia, ISABELLA, GERD, depression, migraine, thyroid nodules, MIKE, obesity He is under the care of cardiology, ortho. Had his knee surgery at [facility]. Walks about a mile per day. Had eye exam earlier this year. Denies DM changes His current diabetes regimen is: Glimepiride 4 mg daily jardiance 25 mg daily--ran out Metformin 500 mg 2 tabs BID Lantus 40 units daily Humalog:. Breakfast: per sliding scale. Lunch: per sliding scale Dinner : 3 units plus sliding scale if needed. If Blood Glucose (mg/dL) is < 150 Give 0 units 151-200 Give 2 units 201-250 Give 4 units 251-300 Give 6 units 301-350 Give 8 units 351-400 Give 10 units >400 Give 10 units and call if not improving Previous DM medication: None Regarding symptoms of hyperglycemia, he is experiencing polydipsia but denies polyuria, weight loss, blurry vision. Exercise: limited due to torn meniscus Bianca is checking his blood glucose 2 times weekly He did not bring a logbook today for review: 200-300's Hypoglycemia frequency: denies Hypoglycemia awareness: Yes Overall, the patient has no acute complaints at this time. PAST MEDICAL HISTORY Diagnosis Date Agitation 03/31/2014 Allergic rhinitis 03/31/2014 Allergy-induced asthma 03/31/2014 Mild intermitant Current use of proton pump inhibitor 09/26/2018 Diabetic eye exam (HCC) 01/27/2017 Last eye exam: 03/05/2019 Diverticulosis 03/31/2014 Dyslipidemia 03/31/2014 Low HDL, High Trigs Elevated antinuclear antibody (JALEEL) level 03/31/2014 Family history of malignant neoplasm of gastrointestinal tract 03/31/2014 ISABELLA (generalized anxiety disorder) 06/22/2020 GERD without esophagitis 09/26/2018 Hiatal hernia 03/31/2014 Hx of colonic polyp 03/31/2014 Needs next colonoscopy 08/2022 Lump 11/16/2019 benign left palm Major depressive disorder with single episode, in partial remission ([facility]) 09/26/2018 Migraine without aura and without status migrainosus, not intractable 09/11/2015 Mood disorder ([facility]) 03/31/2014 Multiple thyroid nodules 02/27/[address] Lazaro 03/2018 Multiple thyroid nodules 02/27/2018 US 03/2020 per radiology no further f/u needed.. All benign Biopsy 03/[address] Lazaro. Benign. Obstructive sleep apnea syndrome 01/27/2017 On CPAP Other joint derangement, not elsewhere classified, lower leg 03/25/2013 Primary insomnia 07/28/2020 QT prolongation 04/20/2021 Seen [facility] 04/19/2021: [place] to be benign and related to anti- depressants. No changes needed. TMJ (temporomandibular joint disorder) 03/31/2014 Right side Type 2 diabetes mellitus without complication, without long-term current use of insulin ([facility]) 01/19/2017 Well adult exam 12/17/2014 Last done:11/16/2019 PAST SURGICAL HISTORY Procedure Laterality Date APPENDECTOMY HX 2004 COLONOSCOPY 06/2012 Dr. Corrigan +polyp, repeat 5 yrs COLONOSCOPY FLX DX W/COLLJ SPEC WHEN PFRMD 08/16/2017 Colonoscopy, repeat 5 yrs, Dr. Bliss PAST SURGICAL HISTORY OF 2009 benign cysts: 1 from head and 2 from neck TONSILLECTOMY & ADENOIDECTOMY AGE 11/> 1980 FAMILY HISTORY Problem Relation Age of Onset Coronary Artery Disease Maternal Grandmother 60's Stroke Maternal Grandfather Colon Cancer Father 52 Coronary Artery Disease Father Colon Cancer Paternal Uncle 49 Coronary Artery Disease Mother 60's Hypertension Mother No Known Problems Brother No Known Problems Brother No Known Problems Brother Alzheimer's Disease No Family History Prostate Cancer No Family History Breast Cancer No Family History Hyperlipidemia No Family History Kidney Disease No Family History Seizures No Family History Thyroid No Family History Social History Tobacco Use Smoking status: Never Smoker Smokeless tobacco: Never Used Vaping Use Vaping Use: Never used Substance Use Topics Alcohol use: Yes Comment: Rarely Drug use: No Current Outpatient Medications Medication Sig Dispense Refill insulin glargine (LANTUS SOLOSTAR U-100 INSULIN) 100 unit/mL (3 mL) INJECT SUBCUTANEOUSLY 26 UNITS DAILY AT BEDTIME. TITRATE UP 2 UNITS EVERY 2 DAYS UNTIL FASTING GLUCOSE IS 120 UP TO 40 UNITS DAILY 15 mL 1 JARDIANCE 25 mg tablet Take 1 tablet by mouth once daily. 30 tablet 0 metFORMIN (GLUCOPHAGE) 500 mg tablet Take 2 tablets by mouth twice daily with meals. 120 tablet 0 atorvastatin (LIPITOR) 20 mg tablet Take 1 tablet by mouth once daily. 30 tablet 0 Fenofibrate (LOFIBRA) 54 mg tablet Take 1 tablet by mouth once daily. 30 tablet 0 zonisamide (ZONEGRAN) 25 mg capsule Take 1 capsule by mouth once daily. 30 capsule 0 glimepiride (AMARYL) 4 mg tablet Take 1 tablet by mouth daily with breakfast. 30 tablet 0 albuterol HFA (PROAIR HFA) 90 mcg/actuation inhaler Inhale 2 Puffs as instructed every 4 hours as needed for wheezing/shortness of breath. 1 Inhaler 1 busPIRone (BUSPAR) 15 mg tablet Take one tab by mouth twice a day. 60 tablet 5 DULoxetine (CYMBALTA) 60 mg capsule Take 1 capsule by mouth once daily. 90 capsule 1 OLANZapine (ZYPREXA) 5 mg tablet Take 1 tablet by mouth daily at bedtime. 90 tablet 1 insulin lispro (HUMALOG KWIKPEN INSULIN) 100 unit/mL Inject subcutaneously breakfast per sliding scale, lunch per sliding scale; dinner 3 units plus sliding scale; up to 35 units daily 45 mL 3 Insulin Wykoff, Disposable, (BD ULTRAFINE III MINI PEN) 31 gauge x 3/16 Use four pen needles daily 400 Each 3 doxepin capsule 10 mg Take 1 capsule by mouth daily at bedtime. 90 capsule 1 riboflavin, vitamin B2, (VITAMIN B-2) 100 mg tab Take 2 tablets by mouth twice daily. 360 tablet 1 omega-3 fatty acids 1,000 mg cap Take 1 capsule by mouth twice daily. 180 capsule 3 Magnesium Oxide 250 mg magnesium tab Take 1 tablet by mouth twice daily. 180 tablet 3 aspirin, enteric coated (ASPIRIN, ENTERIC COATED) 81 mg EC tablet Take 1 tablet by mouth once daily. lancets (ONE TOUCH DELICA) 33 gauge misc Test blood sugar(s) 1-2 times daily. Dx: 250.00. Insulin: No 200 Each 3 blood sugar diagnostic (ONETOUCH VERIO) test strip Test blood sugar 1-2 times daily. E11.9 100 Strip 0 multivitamin (DAILY MULTI-VITAMIN) tablet Take 1 tablet by mouth once daily. 0 fluticasone (FLONASE) 50 mcg/actuation nasal spray Use 1 [place] in each nostril once daily. Rinse mouth after use. 1 Bottle 11 esomeprazole (NEXIUM) 40 mg capsule Take 40 mg by mouth once daily. CPAP AUTO PAP 5-20 cmH20, CHIN STRAP, heated HUMIDITY, mask of patient's choice. LIFETIME SUPPLIES.SD Card. Download to [employer]. (Patient not taking: Reported on 03/04/2021 ) 1 Device 99 No current facility-administered medications for this visit. Allergies As of Date: 03/04/2022 Allergen Noted Reaction TOPAMAX [TOPIRAMATE] 02/04/2014 Mental Status Change CELEXA [CITALOPRAM HYDROBROMIDE] 10/22/2014 Other: See Comments EFFEXOR [VENLAFAXINE ANALOGUES] 10/22/2014 Other: See Comments REGLAN [METOCLOPRAMIDE HCL] 01/24/2007 Unknown ZOLOFT [SERTRALINE HCL] 10/22/2014 Other: See Comments Fully Assessed 03/04/2022 REVIEW OF SYSTEMS: Answers for HPI/ROS submitted by the patient on 03/03/2022 Fatigue: Yes Skin Color Changes: No Post-Nasal Drip: No Thyroid Pain (lower neck): No Trouble Swallowing: No Blood Clots?: No Leg Pain while walking?: No Heartburn: No Vomiting?: No Constipation: No Abdominal Pain: No Bone Pain?: No Muscle Weakness: Yes Numbness?: No Urgency to Urinate?: No Increased Urination?: No Slow or Small Urine Stream?: No Flushing?: No Hot Flashes?: No Increased Thirst: Yes Change in Body Hair?: No Cold Intolerance: No Heat Intolerance?: No Night Sweats: Yes Recent Unintentional Weight Change: No Vision Disturbance: No Chest Pain: No Difficulty Breathing?: No Nausea: No Diarrhea: No Joint Pain or Stiffness: No Headaches: Yes Dizziness: No Fever : No Nasal Congestion: No Hearing Loss: No A Cough: No Irregular Heart Beat: No Black Tarry Stools: No Difficulty Urinating?: No Awaken at Night More Than Once to Urinate?: No Leg or Foot Discomfort at Night?: No A Rash: No Memory Loss: No Seizures: No PHYSICAL EXAM: BP 148/97 (BP Site: Left Arm, BP Position: Sitting, BP Cuff Size: Regular Adult) Pulse 77 Ht 187.2 cm (6' 1.7) Wt 137.8 kg (303 lb 12.8 oz) SpO2 94% BMI 39.32 kg/m2 Physical Exam Constitutional: Appearance: Normal appearance. He is obese. Cardiovascular: Rate and Rhythm: Normal rate and regular rhythm. Pulmonary: Effort: Pulmonary effort is normal. Breath sounds: Normal breath sounds. Skin: General: Skin is warm and dry. Neurological: Mental Status: He is alert and oriented to person, place, and time. Psychiatric: Mood and Affect: Mood normal. Behavior: Behavior normal. Feet:Shoes and socks removed, sensitive to 10 gm monofilament and calluses noted bilaterally DATA: Creatinine Date Value Ref Range Status 04/13/2021 0.76 0.73 - 1.22 mg/dL Final Hemoglobin A1C (%) Date Value 03/24/2021 8.0 Hemoglobin A1C (POCT) (%) Date Value 03/04/2022 10.5 ) No components found for: URINEALBUMIN Cholesterol, Total (mg/dL) Date Value 02/20/2018 230 Total Cholesterol, Nonfasting (mg/dL) Date Value 12/22/2020 159 HDL Cholesterol (mg/dL) Date Value 02/20/2018 30 HDL Cholesterol, Nonfasting (mg/dL) Date Value 12/22/2020 30 LDL Cholesterol (mg/dL) Date Value 01/25/2017 129 LDL Cholesterol, Nonfasting (mg/dL) Date Value 12/22/2020 70 Triglyceride (mg/dL) Date Value 02/20/2018 158 Triglycerides, Nonfasting (mg/dL) Date Value 12/22/2020 296 IMPRESSION: Mr. Delarosa is a 46 year old male here for evaluation of DM Type 2 complicated by dyslipidemia, obesity. RECOMMENDATIONS: (E11.9) Type 2 diabetes mellitus without complication, without long-term current use of insulin ([facility]) (primary encounter diagnosis) Comment: Glycemic control has worsened. We were using prandial insulin previously in order to improve his BG so he could have knee surgery which has been done. Will add GLP-1. Risks and benefits reviewed. 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 Patient agrees to start GLP-1 therapy. Patient has no history of pancreatitis and no personal or family history of medullary thyroid cancer/c-cell hyperplasia. We discussed the reported risk of medullary thyroid cancer/c-cell hyperplasia noted in rats who received clinically relevant doses of GLP-1. Risk of medullary thyroid cancer/c-cell hyperplasia has yet to be demonstrated in humans, especially in the current pharmacologic doses approved for use. Potential for weight loss with improved glycemic control warrant trial of medication. Patient made inforrmed decision to try the medication. Medication has been fully explained to patient, including risk of C-cell hyperplasia in the thyroid gland occurring in mice/rats, injection technique, risk of hypoglycemia, side effects including nausea/vomiting. Plan: HEMOGLOBIN A1C (POC), COMP METABOLIC PANEL, TSH BLD, LIPID PANEL BASIC, ALBUMIN/CREAT RATIO RND UR, JARDIANCE 25 mg tablet, insulin glargine (LANTUS SOLOSTAR U-100 INSULIN) 100 unit/mL (3 mL), metFORMIN (GLUCOPHAGE) 500 mg tablet, glimepiride (AMARYL) 4 mg tablet, Insulin Wykoff, Disposable, (BD ULTRAFINE III MINI PEN) 31 gauge x 3/16, semaglutide (OZEMPIC) 0.25 mg or 0.5 mg(2 mg/1.5 mL) pen injector, HGB A1C, CONSULT TO PODIATRY Continue glimepiride, jardiance, metformin. Continue lantus 40 units daily at bedtime. Stop humalog Start ozempic 0.25 mg weekly x 4 wks then increase to 0.5 mg weekly. Follow up in 3 months with labs prior (E78.5) Dyslipidemia Comment/Plan: LIPID PANEL BASIC Managed per PCP (E66.01, Z68.39) Class 2 severe obesity with serious comorbidity and body mass index (BMI) of 39.0 to 39.9 in adult, unspecified obesity type (HCC) Comment: Body mass index is 39.32 kg/m . Plan: Encouraged increase dietary and exercise efforts as able Medical Decision Making: Level: 4 - Moderate Torres Monaco APRN, [employer]NAGER [employer], CDE Endocrinology [facility] Office [facility]/[address] [place] [address] Fax: documented in this [facility] Miscellaneous Notes* Telephone Encounter - Berkley Dubon - 02/01/2022 11:17 AM EDT Date of next office visit : 03/04/2022 Berkley Dubon * Telephone Encounter - Regina Parrish MA - 02/01/2022 8:58 AM EDT Requester: Pharmacy Last Visit in Endocrinology: Provider name: Torres Monaco CNP , Date 03/04/2021 Next Scheduled Appt in Endo: Visit date not found Last Refill: 03/25/2021 Number of Refills given: 3 PSS NOTE: Patient needs scheduled appointment. Please reach out to pt to schedule. Pending Prescriptions Disp Refills LANTUS SOLOSTAR U-100 INSULIN 100 UNIT/ML (3 ML) SUBCUTANEOUS PEN 45 mL 3 Sig: INJECT SUBCUTANEOUSLY 26 UNITS DAILY AT BEDTIME. TITRATE UP 2 UNITS EVERY 2 DAYS UNTIL FASTINGGLUCOSE IS 120 UP TO 40 UNITS DAILY TAMIKO: No Please review and advise. Regina Parrish MA documented in this encounterMer[facility]03[facility]30-2022 Miscellaneous Notes* Telephone Encounter - Humberto Jackson MD - 01/05/2022 7:17 PM EDT The following approved medication requests have been transmitted electronically. Signed Prescriptions Disp Refills JARDIANCE 25 mg tablet 30 tablet 0 Sig: Take 1 tablet by mouth once daily. TAMIKO: Yes Authorizing Provider: HUMBERTO JACKSON metFORMIN (GLUCOPHAGE) 500 mg tablet 120 tablet 0 Sig: Take 2 tablets by mouth twice daily with meals. TAMIKO: No Authorizing Provider: HUMBERTO JACKSON atorvastatin (LIPITOR) 20 mg tablet 30 tablet 0 Sig: Take 1 tablet by mouth once daily. TAMIKO: No Authorizing Provider: HUMBERTO JACKSON Fenofibrate (LOFIBRA) 54 mg tablet 30 tablet 0 Sig: Take 1 tablet by mouth once daily. TAMIKO: No Authorizing Provider: HUMBERTO JACKSON zonisamide (ZONEGRAN) 25 mg capsule 30 capsule 0 Sig: Take 1 capsule by mouth once daily. TAMIKO: No Authorizing Provider: HUMBERTO JACKSON glimepiride (AMARYL) 4 mg tablet 30 tablet 0 Sig: Take 1 tablet by mouth daily with breakfast. TAMIKO: No Authorizing Provider: HUMBERTO JACKSON MD * Telephone Encounter - Carmelo Lopez LPN - 01/05/2022 12:27 PM EDT Last ov 10/15/21 No appointment scheduled Pt canceled and no showed routine f/u appointment. Left vm for pt that he needs to schedule a f/u appointment. Carmelo Lopez LPN documented in this encounterMer[facility]03[facility]-20[facility] Miscellaneous Notes* Telephone Encounter - Carmelo Lopez LPN - 01/05/2022 12:27 PM EDT Med request was combined with pt's other medication request and sent to pcp. Carmelo Lopez LPN documented in this encounterMer[facility] History of Present illness Narrative* Roro Feliciano RT(R) - 10/15/2021 8:40 AM EST Radiology Service Progress Note PATIENT NAME: Bianca Delarosa DATE OF SERVICE: October 15, 2021 TIME: 8:32 AM PATIENT IDENTITY VERIFICATION COMPLETED USING TWO (2) IDENTIFIERS: Name and Date of confirmedby patient verbally. FALL SCREENING: Has the patient had 2 falls in the last year or 1 fall with injury or currently using an Ambulatory Assistive Device (Walker, Cane, Wheelchair, Crutches, etc.)? No PATIENT GENDER DATA: Male PATIENT RELEVANT IMPLANT DATA REVIEWED: Not Applicable RADIOLOGY DEPARTMENT: General X-ray: Exam(s) Completed: Chest X-Ray PERIPHERAL IV DATA: Not applicable SIGNED BY: RT Nitesh(R) October 15, 2021 8:32 AM documented in this encounterMer[facility] History of Past illness Narrative* Problem Noted Date Resolved Date Joint stiffness of right lower leg 10/21/2020 12/22/2020 Right leg weakness 10/21/2020 12/22/2020 documented as of this encounter (statuses as of 01/05/2022) [facility] History of Past illness Narrative* Problem Noted Date Resolved Date Joint stiffness of right lower leg 10/21/2020 12/22/2020 Right leg weakness 10/21/2020 12/22/2020 documented as of this encounter (statuses as of 01/05/2022) [facility] History of Past illness Narrative* Problem Noted Date Resolved Date Joint stiffness of right lower leg 10/21/2020 12/22/2020 Right leg weakness 10/21/2020 12/22/2020 documented as of this encounter (statuses as of 02/01/2022) [address]13-2021 History of Past illness Narrative* Problem Noted Date Resolved Date Joint stiffness of right lower leg 10/21/2020 12/22/2020 Right leg weakness 10/21/2020 12/22/2020 documented as of this encounter (statuses as of 03/04/2022) [address]13-2021 History of Past illness Narrative* Problem Noted Date Resolved Date Joint stiffness of right lower leg 10/21/2020 12/22/2020 Right leg weakness 10/21/2020 12/22/2020 documented as of this encounter (statuses as of 04/28/2022) [address]13-2021 History of Past illness Narrative* Problem Noted Date Resolved Date Joint stiffness of right lower leg 10/21/2020 12/22/2020 Right leg weakness 10/21/2020 12/22/2020 documented as of this encounter (statuses as of 04/28/2022) [address]13-2021 History of Past illness Narrative* Problem Noted Date Resolved Date Joint stiffness of right lower leg 10/21/2020 12/22/2020 Right leg weakness 10/21/2020 12/22/2020 documented as of this encounter (statuses as of 04/28/2022) [address]13-2021 History of Past illness Narrative* Problem Noted Date Resolved Date Joint stiffness of right lower leg 10/21/2020 12/22/2020 Right leg weakness 10/21/2020 12/22/2020 documented as of this encounter (statuses as of 06/05/2022) [address]13-2021 History of Past illness Narrative* Problem Noted Date Resolved Date Joint stiffness of right lower leg 10/21/2020 12/22/2020 Right leg weakness 10/21/2020 12/22/2020 documented as of this encounter (statuses as of 06/06/2022) [address]13-2021 History of Past illness Narrative* Problem Noted Date Resolved Date Joint stiffness of right lower leg 10/21/2020 12/22/2020 Right leg weakness 10/21/2020 12/22/2020 documented as of this encounter (statuses as of 06/07/2022) [address]13-2021 History of Past illness Narrative* Problem Noted Date Resolved Date Joint stiffness of right lower leg 10/21/2020 12/22/2020 Right leg weakness 10/21/2020 12/22/2020 documented as of this encounter (statuses as of 06/10/2022) [address]13-2021 History of Past illness Narrative* Problem Noted Date Resolved Date Joint stiffness of right lower leg 10/21/2020 12/22/2020 Right leg weakness 10/21/2020 12/22/2020 documented as of this encounter (statuses as of 07/20/2022) [address]13-2021 History of Past illness Narrative* Problem Noted Date Resolved Date Joint stiffness of right lower leg 10/21/2020 12/22/2020 Right leg weakness 10/21/2020 12/22/2020 documented as of this encounter (statuses as of 08/04/2022) [address]13-2021 History of Past illness Narrative* Problem Noted Date Resolved Date Joint stiffness of right lower leg 10/21/2020 12/22/2020 Right leg weakness 10/21/2020 12/22/2020 documented as of this encounter (statuses as of 08/04/2022) [address]13-2021 History of Past illness Narrative* Problem Noted Date Resolved Date Joint stiffness of right lower leg 10/21/2020 12/22/2020 Right leg weakness 10/21/2020 12/22/2020 documented as of this encounter (statuses as of 08/05/2022) [address]13-2021 History of Past illness Narrative* Problem Noted Date Resolved Date Joint stiffness of right lower leg 10/21/2020 12/22/2020 Right leg weakness 10/21/2020 12/22/2020 documented as of this encounter (statuses as of 08/11/2022) [address]13-2021 History of Past illness Narrative* Problem Noted Date Resolved Date Joint stiffness of right lower leg 10/21/2020 12/22/2020 Right leg weakness 10/21/2020 12/22/2020 documented as of this encounter (statuses as of 08/17/2022) [address]13-2021 History of Past illness Narrative* Problem Noted Date Resolved Date Joint stiffness of right lower leg 10/21/2020 12/22/2020 Right leg weakness 10/21/2020 12/22/2020 documented as of this encounter (statuses as of 10/28/2022) [address]13-2021 History of Past illness Narrative* Problem Noted Date Resolved Date Joint stiffness of right lower leg 10/21/2020 12/22/2020 Right leg weakness 10/21/2020 12/22/2020 documented as of this encounter (statuses as of 12/07/2022) [address]13-2021 History of Past illness Narrative* Problem Noted Date Resolved Date Joint stiffness of right lower leg 10/21/2020 12/22/2020 Right leg weakness 10/21/2020 12/22/2020 documented as of this encounter (statuses as of 12/08/2022) [address]13-2021 History of Past illness Narrative* Problem Noted Date Resolved Date Joint stiffness of right lower leg 10/21/2020 12/22/2020 Right leg weakness 10/21/2020 12/22/2020 documented as of this encounter (statuses as of 01/09/2023) [facility] of [facility] illness Narrative* Problem Noted Date Resolved Date Joint stiffness of right lower leg 10/21/2020 12/22/2020 Right leg weakness 10/21/2020 12/22/2020 documented as of this encounter (statuses as of 01/28/2023) [address]13-2021 History of Past illness Narrative* Problem Noted Date Resolved Date Joint stiffness of right lower leg 10/21/2020 12/22/2020 Right leg weakness 10/21/2020 12/22/2020 documented as of this encounter (statuses as of 03/15/2023) [address]13-2021 History of Past illness Narrative* Problem Noted Date Resolved Date Joint stiffness of right lower leg 10/21/2020 12/22/2020 Right leg weakness 10/21/2020 12/22/2020 documented as of this encounter (statuses as of 03/15/2023) [address]13-2021 History of Past illness Narrative* Problem Noted Date Resolved Date Joint stiffness of right lower leg 10/21/2020 12/22/2020 Right leg weakness 10/21/2020 12/22/2020 documented as of this encounter (statuses as of 03/28/2023) [address]13-2021 History of Past illness Narrative* Problem Noted Date Resolved Date Joint stiffness of right lower leg 10/21/2020 12/22/2020 Right leg weakness 10/21/2020 12/22/2020 documented as of this encounter (statuses as of 04/10/2023) [address]13-2021 History of Past illness Narrative* Problem Noted Date Resolved Date Joint stiffness of right lower leg 10/21/2020 12/22/2020 Right leg weakness 10/21/2020 12/22/2020 documented as of this encounter (statuses as of 04/14/2023) [address]13-2021 History of Past illness Narrative* Problem Noted Date Resolved Date Joint stiffness of right lower leg 10/21/2020 12/22/2020 Right leg weakness 10/21/2020 12/22/2020 documented as of this encounter (statuses as of 04/14/2023) [address]13-2021 History of Past illness Narrative* Problem Noted Date Diagnosed Date Resolved Date Joint stiffness of right lower leg 10/21/2020 12/22/2020 Right leg weakness 10/21/2020 documented as of this encounter (statuses as of 06/05/2023) [address]13-2021 History of Past illness Narrative* Problem Noted Date Diagnosed Date Resolved Date Joint stiffness of right lower leg 10/21/2020 12/22/2020 Right leg weakness 10/21/2020 documented as of this encounter (statuses as of 06/05/2023) [address]13-2021 History of Past illness Narrative* Problem Noted Date Diagnosed Date Resolved Date Joint stiffness of right lower leg 10/21/2020 12/22/2020 Right leg weakness 10/21/2020 documented as of this encounter (statuses as of 07/18/2023) [address]13-2021 History of Past illness Narrative* Problem Noted Date Diagnosed Date Resolved Date Joint stiffness of right lower leg 10/21/2020 12/22/2020 Right leg weakness 10/21/2020 1 documented as of this encounter (statuses as of 08/11/2023) [facility] of Past illness Narrative* Problem Noted Date Diagnosed Date Resolved Date Joint stiffness of right lower leg 10/21/2020 12/22/2020 Right leg weakness 10/21/2020 1 documented as of this encounter (statuses as of 08/24/2023) [address]13-2021 History of Past illness Narrative* Problem Noted Date Diagnosed Date Resolved Date Joint stiffness of right lower leg 10/21/2020 12/22/2020 Right leg weakness 10/21/2020 1 documented as of this encounter (statuses as of 09/07/2023) [facility] of Past illness Narrative* Problem Noted Date Diagnosed Date Resolved Date Joint stiffness of right lower leg 10/21/2020 12/22/2020 Right leg weakness 10/21/2020 1 documented as of this encounter (statuses as of 09/12/2023) [address]13-2021 History of Past illness Narrative* Problem Noted Date Diagnosed Date Resolved Date Joint stiffness of right lower leg 10/21/2020 12/22/2020 Right leg weakness 10/21/2020 1 documented as of this encounter (statuses as of 11/29/2023) [address]13-2021 History of Past illness Narrative* Problem Noted Date Diagnosed Date Resolved Date Joint stiffness of right lower leg 10/21/2020 12/22/2020 Right leg weakness 10/21/2020 documented as of this encounter (statuses as of 12/01/2023) [address]13-2021 History of Past illness Narrative* Problem Noted Date Diagnosed Date Resolved Date Joint stiffness of right lower leg 10/21/2020 12/22/2020 Right leg weakness 10/21/2020 1 documented as of this encounter (statuses as of 12/08/2023) [address]13-2021 History of Past illness Narrative* Problem Noted Date Diagnosed Date Resolved Date Joint stiffness of right lower leg 10/21/2020 12/22/2020 Right leg weakness 10/21/2020 1 documented as of this encounter (statuses as of 12/08/2023) [address]13-2021 History of Past illness Narrative* Problem Noted Date Diagnosed Date Resolved Date Joint stiffness of right lower leg 10/21/2020 12/22/2020 Right leg weakness 10/21/2020 1 documented as of this encounter (statuses as of 12/15/2023) [address]13-2021 History of Past illness Narrative* Problem Noted Date Diagnosed Date Resolved Date Joint stiffness of right lower leg 10/21/2020 12/22/2020 Right leg weakness 10/21/2020 1 documented as of this encounter (statuses as of 12/16/2023) [address]13-2021 History of Past illness Narrative* Problem Noted Date Diagnosed Date Resolved Date Joint stiffness of right lower leg 10/21/2020 12/22/2020 Right leg weakness 10/21/2020 1 documented as of this encounter (statuses as of 01/17/2024) [address]13-2021 History of Past illness Narrative* Problem Noted Date Diagnosed Date Resolved Date Joint stiffness of right lower leg 10/21/2020 12/22/2020 Right leg weakness 10/21/2020 1 documented as of this encounter (statuses as of 01/18/2024) [address]13-2021 History of Past illness Narrative* Problem Noted Date Diagnosed Date Resolved Date Joint stiffness of right lower leg 10/21/2020 12/22/2020 Right leg weakness 10/21/2020 1 documented as of this encounter (statuses as of 01/20/2024) [address]13-2021 History of Past illness Narrative* Problem Noted Date Diagnosed Date Resolved Date Joint stiffness of right lower leg 10/21/2020 12/22/2020 Right leg weakness 10/21/2020 1 documented as of this encounter (statuses as of 01/24/2024) [facility]01-13-2021 History of Past illness Narrative* Problem Noted Date Diagnosed Date Resolved Date Joint stiffness of right lower leg 10/21/2020 12/22/2020 Right leg weakness 10/21/2020 documented as of this encounter (statuses as of 01/25/2024) [facility]01-12-2021 History of Present illness Narrative* Tami Stinson ([place] - 10/20/2020 9:15 AM EST Radiology Service Progress Note PATIENT NAME: Bianca Delarosa DATE OF SERVICE: October 20, 2020 TIME: 10:16 AM PATIENT IDENTITY VERIFICATION COMPLETED USING TWO (2) IDENTIFIERS: Name and Date of confirmedby patient verbally. FALL SCREENING: Has the patient had 2 falls in the last year or 1 fall with injury or currently using an Ambulatory Assistive Device (Walker, Cane, Wheelchair, Crutches, etc.)? No PATIENT GENDER DATA: Male PATIENT RELEVANT IMPLANT DATA REVIEWED: Not Applicable RADIOLOGY DEPARTMENT: General X-ray: Exam(s) Completed: Lower Extremity X- Ray(s): Knee, AP / Lat / Tunne / Merchant Bilateral and Wt. Bearing: PERIPHERAL IV DATA: Not applicable SIGNED BY: Tami NEWBY October 20, 2020 10:16 AM documented [facility] summary Author Prince Villanueva [facility] April 15, 2023 12:06pm Note Date/Time April 15, 2023 10:55 am [facility] Medical Records Department [address] [place] [address] Discharge Summary 04/15/23 1055 MR#: [id number] Acct: [id number] Name: BIANCA DELAROSA Rep #:[id number] : 1975 47 From: Prince Blanton PCP: Dr. Humberto Jackson MD Status:ADM KEYANA Location: [place] [address] Providers Date of Admission: 04/14/23 Primary Care Physician: Dr. Humberto Jackson MD Reason For Visit: ABSCESS Diagnosis Discharge Diagnosis (1) Perirectal abscess: Status: Acute Code(s): K61.1 - Rectal abscess Plan: This is a 47-year-old diabetic male who presents with a 96-hour history of perirectal discomfort and no clinical evidence of a perirectal abscess. There is been no drainage of this abscess and given patient's tenderness on exam I recommend operative incision and drainage. Patient reports that this is his second such episode which raises my suspicion for possible fistula in ano. We will therefore plan to perform an anorectal exam under anesthesia and if a fistulous tract is identified proceed with seton drain placement. And lieu of afistulous tract, we will simply perform incision and drainage with packing. Patient's spouse confirms that she is familiar with this type of wound care. Given patient's comorbidities, I have recommended post procedure inpatient observation with IV antibiotic therapy. Operating room has been notified and wewill proceed emergently for perirectal abscess incision and drainage. Medications at Discharge Home Medications esomeprazole magnesium 40 mg capsule,delayed release 40 mg PO QHS gerd 10/10/17 fenofibrate 50 mg capsule 54 mg PO DAILY cholesterol 10/10/17 multivitamin 1 ea PO DAILY supplement 10/10/17 atorvastatin 20 mg tablet 20 mg PO DAILY 03/22/18 fluoxetine 40 mg capsule 60 mg PO QDAY 03/22/18 metformin 500 mg tablet 1,000 mg PO BID diabetes 03/22/18 Fish Oil 1,000 mg Capsule 1,000 mg PO BID 10/20/18 doxepin 10 mg capsule 10 mg PO QHS 10/20/18 olanzapine 2.5 mg tablet 2.5 mg PO QHS 10/20/18 zonisamide 25 mg capsule 25 mg PO DAILY 10/20/18 empagliflozin 25 mg tablet 25 mg PO DAILY #30 tabs 10/22/18 buspirone 15 mg tablet mg 04/14/23 duloxetine 60 mg capsule,delayed release mg PO 04/14/23 fluticasone propionate 50 mcg/actuation nasal spray,suspension 1 spray intranasal DAILY PRN allergic symptoms 04/14/23 insulin lispro protamine-lispro 100 unit/mL (75-25) subcutaneous pen subcut 04/14/23 methylphenidate HCl 10 mg biphasic 50-50 capsule,extended release mg PO 04/14/23 amoxicillin 500 mg-potassium clavulanate 125 mg tablet 1 tab PO Q8 7 days #21 tabs 04/15/23 oxycodone 5 mg tablet 5 mg PO Q6H PRN PRN Pain Score 6-10 3 days #10 tabs 04/15/23 Hospital Course Operations - (Incision and drainage of left perirectal abscess) Summary of Care Provided Hospital Course: Patient is a 47-year-old male who was admitted through the emergency department on 04/14/2023 after being diagnosed with a perirectal abscess. Given the sensitive location of the patient's infection and his history of diabetes, I recommended an operative incision and drainage procedure. This was undertaken in uncomplicated fashion the evening of 04/14/2023 and patient was admitted to thehospital floor for ongoing IV antibiotic therapy. Postoperative day 1 patient has had minimal discomfort and a dressing change was performed at bedside to educate patient's spouse on the wound care required upon discharge. Patient tolerated this with minimal discomfort. He remains hyperglycemic, but has been extensively counseled on the need to continue to monitor his blood sugars and remain in communication with his primary care provider who has been working on this issue for at least the last 1 week. Lastly, I have asked for outpatient follow-up in general surgery clinic in approximately 1 week to review patient's wound healing. All questions were answered from patient and his spouse and theyexpressed their satisfaction with the care received. Patient is discharged homewith wound care instructions, wound care supplies, and prescription for ongoing antibiotic therapy. Physical Exam GI GI Narrative: Persistent induration of left buttock, but no further fluctuance and improving erythema observed. No bleeding observed with dressing change. Weight / BMI Weight Weight: 287 lb 8 oz Body Mass Index (BMI) 36.9 ABG / Lab / Microbiology Data 04/15/23 05:35 04/14/23 14:50 Laboratory: Laboratory Results - last 24 hr 04/14/23 14:50: WBC 9.8, RBC 4.74, Hgb 15.2, Hct 42.2, MCV 89.0, MCH 32.1 H, MCHC 36.0, RDW Std Deviation 37.4, RDW Coeff of Katie 11.6, Plt Count 203, MPV 12.4 H, Immature Gran % (Auto) 0.300, Neut % (Auto) 73.5 H, Lymph % (Auto) 19.3,Tensas % (Auto) 5.8, Eos % (Auto) 0.6, Baso % (Auto) 0.5, Absolute Neuts (auto) 7.2, Absolute Lymphs (auto) 1.89, Nucleated RBC % 0, Sodium 135 L, Potassium 3.7, Chloride 102, Carbon Dioxide 23.0, Anion Gap 10, BUN 9, Creatinine 0.79, Estim Creat Clear Calc 132.95, Est GFR (MDRD) Af Amer 134, Est GFR (MDRD) Non-Af111, BUN/Creatinine Ratio 11.3, Glucose 300 H, Calcium 8.9 04/14/23 20:25: POC Glucose 252 H 04/14/23 23:07: POC Glucose 404 H 04/15/23 05:35: WBC 7.3, RBC 4.26 L, Hgb 13.5, Hct 39.4 L, MCV 92.5, MCH 31.7, MCHC 34.3, RDW Std Deviation 39.8, RDW Coeff of Katie 11.8, Plt Count 172, MPV 13.2 H, Immature Gran % (Auto) 0.300, Neut % (Auto) 69.4, Lymph % (Auto) 20.5, Tensas % (Auto) 7.8, Eos % (Auto) 1.5, Baso % (Auto) 0.5, Absolute Neuts (auto) 5.1, Absolute Lymphs (auto) 1.50, Nucleated RBC % 0 04/15/23 06:15: POC Glucose 332 H Radiography Diagnostic Testing: Radiology Impression Pelvis CT 04/14/23 14:13 IMPRESSION: (NOT LISTED IN ORDER OF SIGNIFICANCE) Left tressa anal abscess is 32 x 22 x 38 mm in size. Se 2 IM: 82 and Se602 IM: 107. Other findings as above. Electronically Signed: Jaime Amaya MD at 17:11 EDT , Meaningful Use Info Meaningful Use Diagnoses (Choose all that apply): None applicable Discharge Plan Admission Admit Date/Time: 04/14/23 20:30 Primary Reason for Your Visit: Incision and drainage of perirectal abscess Attending Provider: Prince Villanueva Primary Care Provider: Humberto Jackson Discharge Orders/Prescriptions Prescriptions: New amoxicillin-pot clavulanate 500-125 mg Tablet 1 tab PO Q8 7 Days Qty: 21 0RF oxycodone 5 mg Tablet 5 mg PO Q6H PRN PRN (Reason: Pain Score 6-10) 3 Days Qty: 10 0RF Continued atorvastatin 20 mg tablet 20 mg PO DAILY fluoxetine 40 mg capsule 60 mg PO QDAY multivitamin 1 EACH tablet 1 ea PO DAILY esomeprazole magnesium 40 MG capsule 40 mg PO QHS fenofibrate 50 MG capsule 54 mg PO DAILY metformin 500 mg tablet 1,000 mg PO BID doxepin 10 MG capsule 10 mg PO QHS olanzapine 2.5 MG tablet 2.5 mg PO QHS zonisamide 25 MG capsule 25 mg PO DAILY Fish Oil 1,000 mg Capsule 1,000 mg PO BID empagliflozin 25 MG tablet 25 mg PO DAILY Qty: 30 0RF buspirone 15 mg tablet Patient Comments: TAKE 1 TABLET BY MOUTH TWICE A DAY insulin lispro protamin-lispro 100 unit/mL (75-25) insulin pen SUBCUT methylphenidate HCl 10 mg capsule,ER biphasic 50-50 PO Patient Comments: TAKE 1 CAPSULE BY MOUTH EVERY DAY duloxetine 60 mg capsule,delayed release(DR/EC) PO Patient Comments: TAKE 1 CAPSULE BY MOUTH ONCE DAILY fluticasone propionate 50 mcg/actuation spray,suspension 1 spray intranasal DAILY PRN (Reason: allergic symptoms) Rx Instructions: administer into each nostril Referrals / Follow Up: Humberto Jackson MD [Primary Care Provider] - Disposition Disposition (needs filled in before D/C Order can be placed): Home, Self Care Charges/Coding Visit Charges Inpatient E&M: 04800 Disch Hosp 04/15/23 1206 <Electronically signed by Prince Villanueva MD> Cosigner Signature (if applicable): CC: Dr. Humberto Jackson MD; Dr. Prince Villanueva MD~ Signed [facility] Work Phone: Discharge summary Author Prince Villanueva [facility] April 15, 2023 11:01am Note Date/Time April 15, 2023 10:57 am [facility] Medical Records Department [address] [place] [id number] Instructions for Home/Discharge Instructions 04/15/23 1055 MR#: [id number] Acct: [id number] Name: BIANCA DELAROSA Rep #:[id number] : 1975 47 From: Prince Blanton PCP: Dr. Humberto Jackson MD Status:ADM KEYANA Discharge Instructions Diet Discharge Diet: Carb Control Diet Activity Discharge Activity: May Shower Dressing / Incision Call your doctor if your incision/area has: Continuous Slow Oozing, Sudden Increased Bleeding, Increased Pain/ Swelling, Increased Redness and Foul Smelling Discharge Call your doctor if you observe: Fever of 101 or Higher and Change in Color Cleanse incision/area with: Soap & Water Additional Dressing/Incision Instructions:: Change packing twice daily after showering and expelling all water Follow Up Care Please Follow Up With: Prince Villanueva MD When: 7 to 10 days Test Results: Test results from this visit will be discussed in further detail at your follow- up appointment, if applicable. Discharge Plan Admission Admit Date/Time: 04/14/23 20:30 Primary Reason for Your Visit: Incision and drainage of perirectal abscess Attending Provider: Prince Villanueva Primary Care Provider: Humberto Jackson Discharge Orders/Prescriptions Prescriptions: New amoxicillin-pot clavulanate 500-125 mg Tablet 1 tab PO Q8 7 Days Qty: 21 0RF oxycodone 5 mg Tablet 5 mg PO Q6H PRN PRN (Reason: Pain Score 6-10) 3 Days Qty: 10 0RF Continued atorvastatin 20 mg tablet 20 mg PO DAILY fluoxetine 40 mg capsule 60 mg PO QDAY multivitamin 1 EACH tablet 1 ea PO DAILY esomeprazole magnesium 40 MG capsule 40 mg PO QHS fenofibrate 50 MG capsule 54 mg PO DAILY metformin 500 mg tablet 1,000 mg PO BID doxepin 10 MG capsule 10 mg PO QHS olanzapine 2.5 MG tablet 2.5 mg PO QHS zonisamide 25 MG capsule 25 mg PO DAILY Fish Oil 1,000 mg Capsule 1,000 mg PO BID empagliflozin 25 MG tablet 25 mg PO DAILY Qty: 30 0RF buspirone 15 mg tablet Patient Comments: TAKE 1 TABLET BY MOUTH TWICE A DAY insulin lispro protamin-lispro 100 unit/mL (75-25) insulin pen SUBCUT methylphenidate HCl 10 mg capsule,ER biphasic 50-50 PO Patient Comments: TAKE 1 CAPSULE BY MOUTH EVERY DAY duloxetine 60 mg capsule,delayed release(DR/EC) PO Patient Comments: TAKE 1 CAPSULE BY MOUTH ONCE DAILY fluticasone propionate 50 mcg/actuation spray,suspension 1 spray intranasal DAILY PRN (Reason: allergic symptoms) Rx Instructions: administer into each nostril Referrals / Follow Up: Humberto Jackson MD [Primary Care Provider] - Disposition Disposition (needs filled in before D/C Order can be placed): Home, Self Care 04/15/23 1101<Electronically signed by Prince Villanueva MD>Prince Villanueva MD CC: Dr. Humberto Jackson MD ~ Signed [facility] Work Phone: Evaluation note* Diagnosis Type 2 diabetes mellitus without complication, without long-term current use of insulin (HCC)- Primary Dyslipidemia Other and unspecified hyperlipidemia Class 2 severe obesity with serious comorbidity and body mass index (BMI) of 39.0 to 39.9 in adult, unspecified obesity type (HCC) [facility]* Diagnosis Type 2 diabetes mellitus without complication, without long-term current use of insulin (HCC) documented in this encounter [facility] note* Diagnosis Type 2 diabetes mellitus without complication, without long-term current use of insulin (HCC)- Primary Well adult exam Routine general medical examination at a health care facility Diabetic eye exam (HCC) Type II or unspecified type diabetes mellitus without mention of complication, not stated as uncontrolled Dyslipidemia Other and unspecified hyperlipidemia Migraine without aura and without status migrainosus, not intractable Migraine without aura, without mention of intractable migraine without mention of status migrainosus GERD without esophagitis Esophageal reflux ISABELLA (generalized anxiety disorder) Generalized anxiety disorder Major depressive disorder with single episode, in partial remission (HCC) Mood disorder (HCC) Unspecified episodic mood disorder Obstructive sleep apnea syndrome Obstructive sleep apnea (adult) (pediatric) Primary insomnia Persistent disorder of initiating or maintaining sleep Allergic rhinitis, unspecified seasonality, unspecified trigger Need for hepatitis B screening test Medication management Encounter for long-term (current) use of other medications documented in this encounter [facility] note* Diagnosis Type 2 diabetes mellitus without complication, without long-term current use of insulin (HCC)- Primary Dyslipidemia Other and unspecified hyperlipidemia Class 2 severe obesity with serious comorbidity and body mass index (BMI) of 37.0 to 37.9 in adult, unspecified obesity type (HCC) [facility]* Diagnosis Need for vaccination- Primary Need for prophylactic vaccination and inoculation against unspecified single disease [facility] this [facility]* Diagnosis Cellulitis of skin- Primary Cellulitis and abscess of unspecified site Abscess Cellulitis and abscess of unspecified site [facility] this [facility]* Diagnosis Abscess of buttock- Primary Cellulitis and abscess of buttock Encounter for immunization Need for other specified prophylactic vaccination against single bacterial disease documented [facility] this [facility]* Diagnosis Abscess of buttock- Primary Cellulitis and abscess of buttock Pilonidal cyst Pilonidal cyst without mention of abscess [facility] this [facility]* Diagnosis Type 2 diabetes mellitus without complication, without long-term current use of insulin (HCC)- Primary Dyslipidemia Other and unspecified hyperlipidemia Diabetic eye exam (HCC) Type II or unspecified type diabetes mellitus without mention of complication, not stated as uncontrolled GERD without esophagitis Esophageal reflux Migraine without aura and without status migrainosus, not intractable Migraine without aura, without mention of intractable migraine without mention of status migrainosus Mild intermittent extrinsic asthma without complication Mood disorder (HCC) Unspecified episodic mood disorder Agitation Other and unspecified special symptom or syndrome, not elsewhere classified Major depressive disorder with single episode, in partial remission (HCC) ISABELLA (generalized anxiety disorder) Generalized anxiety disorder Obstructive sleep apnea syndrome Obstructive sleep apnea (adult) (pediatric) Primary insomnia Persistent disorder of initiating or maintaining sleep Attention 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 Need for vaccination Need for prophylactic vaccination and inoculation against unspecified single disease Medication management Encounter for long-term (current) use of other medications [facility] Diagnosis Attention 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 [facility] this [facility]* Diagnosis Type 2 diabetes mellitus without complication, without long-term current use of insulin ([facility])- Primary Dyslipidemia Other and unspecified hyperlipidemia Multiple thyroid nodules Nontoxic multinodular goiter Obesity, Class II, BMI 35-39.9 Obesity, unspecified [facility]* Diagnosis Type 2 diabetes mellitus without complication, without long-term current use of insulin (HCC) [facility] Diagnosis Type 2 diabetes mellitus without complication, without long-term current use of insulin (HCC) [facility] Diagnosis Attention 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 [facility]* Diagnosis Migraine without aura and without status migrainosus, not intractable- Primary Migraine without aura, without mention of intractable migraine without mention of status migrainosus Type 2 diabetes mellitus without complication, without long-term current use of insulin (HCC) Dyslipidemia Other and unspecified hyperlipidemia Attention 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 Mood disorder (HCC) Unspecified episodic mood disorder ISABELLA (generalized anxiety disorder) Generalized anxiety disorder [facility] Diagnosis Onset Date Resolution Status Perirectal abscess acute [facility] Work Phone: Evaluation note* Diagnosis Abscess of buttock- Primary Cellulitis and abscess of buttock documented [facility] this encounter [facility]* Diagnosis Type 2 diabetes mellitus without complication, without long-term current use of insulin (HCC) [facility] Diagnosis Attention 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 [facility]* Diagnosis Screening for colon cancer- Primary Special screening for malignant neoplasms, colon Family history of colon cancer in father documented [facility] this encounter [facility]* Diagnosis Type 2 diabetes mellitus without complication, without long-term current use of insulin (HCC) documented [facility] encounter [facility]* Diagnosis Right foot pain Pain in soft tissues of limb documented in this encounter [facility] Work Phone: Evaluation note* Diagnosis Type 2 diabetes mellitus without complication, without long-term current use of insulin (HCC) documented [facility] this encounter [facility]* Diagnosis Well adult exam- Primary Routine general medical examination at a health care facility Type 2 diabetes mellitus without complication, without long-term current use of insulin (HCC) Diabetic eye exam (HCC) Type II or unspecified type diabetes mellitus without mention of complication, not stated as uncontrolled Dyslipidemia Other and unspecified hyperlipidemia GERD without esophagitis Esophageal reflux Migraine without aura and without status migrainosus, not intractable Migraine without aura, without mention of intractable migraine without mention of status migrainosus Mild intermittent extrinsic asthma without complication Multiple thyroid nodules Nontoxic multinodular goiter Major depressive disorder with single episode, 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 Mood disorder (HCC) Unspecified episodic mood disorder ISABELLA (generalized anxiety disorder) Generalized anxiety disorder Agitation Other and unspecified special symptom or syndrome, not elsewhere classified Primary insomnia Persistent disorder of initiating or maintaining sleep Obesity, Class II, BMI 35-39.9 Obesity, unspecified History of COVID-19 Need for vaccination Need for prophylactic vaccination and inoculation against unspecified single disease Medication management Encounter for long-term (current) use of other medications Encounter for immunization Need for other specified prophylactic vaccination against single bacterial disease documented [facility] this [facility]* Diagnosis Attention 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- Primary [facility] Diagnosis Type 2 diabetes mellitus without complication, without long-term current use of insulin (HCC)- Primary Dyslipidemia Other and unspecified hyperlipidemia Multiple thyroid nodules Nontoxic multinodular goiter Obesity, Class II, BMI 35-39.9 Obesity, unspecified documented [facility] this [facility]* Diagnosis Type 2 diabetes mellitus without complication, without long-term current use of insulin ([facility]) [facility] Diagnosis Multiple thyroid nodules- Primary Nontoxic multinodular goiter [facility]* Diagnosis Attention 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 [facility] Thyroid nodule- Primary Nontoxic uninodular goiter [facility] Diagnosis Non-toxic nodular goiter- Primary Unspecified nontoxic nodular goiter Multiple thyroid nodules Nontoxic multinodular goiter [facility] Diagnosis Attention 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 [facility] Diagnosis Attention 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 [facility] Diagnosis Acute pain of right shoulder- Primary Type 2 diabetes mellitus without complication, without long-term current use of insulin (HCC) Dyslipidemia Other and unspecified hyperlipidemia Multiple thyroid nodules Nontoxic multinodular goiter Medication management Encounter for long-term (current) use of other medications [facility] Diagnosis Migraine without aura and without status migrainosus, not intractable Migraine without aura, without mention of intractable migraine without mention of status migrainosus Obstructive sleep apnea syndrome Obstructive sleep apnea (adult) (pediatric) Mild intermittent extrinsic asthma without complication GERD without esophagitis Esophageal reflux Type 2 diabetes mellitus without complication, without long-term current use of insulin (HCC) Dyslipidemia Other and unspecified hyperlipidemia ISABELLA (generalized anxiety disorder) Generalized anxiety disorder Dyslipidemia- Primary Other and unspecified hyperlipidemia Type 2 diabetes mellitus without complication, without long-term current use of insulin (HCC) Multiple thyroid nodules Nontoxic multinodular goiter Medication management Encounter for long-term (current) use of other medications GERD without esophagitis Esophageal reflux [facility] Diagnosis Migraine without aura and without status migrainosus, not intractable Migraine without aura, without mention of intractable migraine without mention of status migrainosus Obstructive sleep apnea syndrome Obstructive sleep apnea (adult) (pediatric) Mild intermittent extrinsic asthma without complication GERD without esophagitis Esophageal reflux Type 2 diabetes mellitus without complication, without long-term current use of insulin (HCC) Dyslipidemia Other and unspecified hyperlipidemia ISABELLA (generalized anxiety disorder) Generalized anxiety disorder Acute pain of right shoulder [facility] Diagnosis Migraine without aura and without status migrainosus, not intractable Migraine without aura, without mention of intractable migraine without mention of status migrainosus Obstructive sleep apnea syndrome Obstructive sleep apnea (adult) (pediatric) Mild intermittent extrinsic asthma without complication GERD without esophagitis Esophageal reflux Type 2 diabetes mellitus without complication, without long-term current use of insulin (HCC) Dyslipidemia Other and unspecified hyperlipidemia ISABELLA (generalized anxiety disorder) Generalized anxiety disorder Acute pain of right shoulder [facility]* Diagnosis Migraine without aura and without status migrainosus, not intractable Migraine without aura, without mention of intractable migraine without mention of status migrainosus Obstructive sleep apnea syndrome Obstructive sleep apnea (adult) (pediatric) Mild intermittent extrinsic asthma without complication GERD without esophagitis Esophageal reflux Type 2 diabetes mellitus without complication, without long-term current use of insulin (HCC) Dyslipidemia Other and unspecified hyperlipidemia ISABELLA (generalized anxiety disorder) Generalized anxiety disorder Attention 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 [facility] Diagnosis Migraine without aura and without status migrainosus, not intractable Migraine without aura, without mention of intractable migraine without mention of status migrainosus Obstructive sleep apnea syndrome Obstructive sleep apnea (adult) (pediatric) Mild intermittent extrinsic asthma without complication GERD without esophagitis Esophageal reflux Type 2 diabetes mellitus without complication, without long-term current use of insulin (HCC) Dyslipidemia Other and unspecified hyperlipidemia ISABELLA (generalized anxiety disorder) Generalized anxiety disorder Acute pain of right shoulder- Primary [facility] Diagnosis Migraine without aura and without status migrainosus, not intractable Migraine without aura, without mention of intractable migraine without mention of status migrainosus Obstructive sleep apnea syndrome Obstructive sleep apnea (adult) (pediatric) Mild intermittent extrinsic asthma without complication GERD without esophagitis Esophageal reflux Type 2 diabetes mellitus without complication, without long-term current use of insulin (HCC) Dyslipidemia Other and unspecified hyperlipidemia ISABELLA (generalized anxiety disorder) Generalized anxiety disorder Cough [facility] Diagnosis Pain in both knees, unspecified chronicity Migraine without aura and without status migrainosus, not intractable Migraine without aura, without mention of intractable migraine without mention of status migrainosus Obstructive sleep apnea syndrome Obstructive sleep apnea (adult) (pediatric) Mild intermittent extrinsic asthma without complication GERD without esophagitis Esophageal reflux Type 2 diabetes mellitus without complication, without long-term current use of insulin (HCC) Dyslipidemia Other and unspecified hyperlipidemia ISABELLA (generalized anxiety disorder) Generalized anxiety disorder [facility] Diagnosis Migraine without aura and without status migrainosus, not intractable Migraine without aura, without mention of intractable migraine without mention of status migrainosus Obstructive sleep apnea syndrome Obstructive sleep apnea (adult) (pediatric) Mild intermittent extrinsic asthma without complication GERD without esophagitis Esophageal reflux Type 2 diabetes mellitus without complication, without long-term current use of insulin (HCC) Dyslipidemia Other and unspecified hyperlipidemia ISABELLA (generalized anxiety disorder) Generalized anxiety disorder Acute pain of right shoulder- Primary [facility] Diagnosis Migraine without aura and without status migrainosus, not intractable Migraine without aura, without mention of intractable migraine without mention of status migrainosus Obstructive sleep apnea syndrome Obstructive sleep apnea (adult) (pediatric) Mild intermittent extrinsic asthma without complication GERD without esophagitis Esophageal reflux Type 2 diabetes mellitus without complication, without long-term current use of insulin (HCC) Dyslipidemia Other and unspecified hyperlipidemia ISABELLA (generalized anxiety disorder) Generalized anxiety disorder Acute pain of right shoulder- Primary [facility]* Diagnosis Migraine without aura and without status migrainosus, not intractable Migraine without aura, without mention of intractable migraine without mention of status migrainosus Obstructive sleep apnea syndrome Obstructive sleep apnea (adult) (pediatric) Mild intermittent extrinsic asthma without complication GERD without esophagitis Esophageal reflux Type 2 diabetes mellitus without complication, without long-term current use of insulin (HCC) Dyslipidemia Other and unspecified hyperlipidemia ISABELLA (generalized anxiety disorder) Generalized anxiety disorder Attention 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 [facility] Diagnosis Migraine without aura and without status migrainosus, not intractable Migraine without aura, without mention of intractable migraine without mention of status migrainosus Obstructive sleep apnea syndrome Obstructive sleep apnea (adult) (pediatric) Mild intermittent extrinsic asthma without complication GERD without esophagitis Esophageal reflux Type 2 diabetes mellitus without complication, without long-term current use of insulin (HCC) Dyslipidemia Other and unspecified hyperlipidemia ISABELLA (generalized anxiety disorder) Generalized anxiety disorder Attention 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- Primary Major depressive disorder with single episode, in partial remission (HCC) Medication management Encounter for long-term (current) use of other medications documented in this encounter [facility] note* Diagnosis Migraine without aura and without status migrainosus, not intractable Migraine without aura, without mention of intractable migraine without mention of status migrainosus Obstructive sleep apnea syndrome Obstructive sleep apnea (adult) (pediatric) Mild intermittent extrinsic asthma without complication GERD without esophagitis Esophageal reflux Type 2 diabetes mellitus without complication, without long-term current use of insulin (HCC) Dyslipidemia Other and unspecified hyperlipidemia ISABELLA (generalized anxiety disorder) Generalized anxiety disorder Acute pain of right shoulder- Primary documented in this encounter [facility] note* Diagnosis Migraine without aura and without status migrainosus, not intractable Migraine without aura, without mention of intractable migraine without mention of status migrainosus Obstructive sleep apnea syndrome Obstructive sleep apnea (adult) (pediatric) Mild intermittent extrinsic asthma without complication GERD without esophagitis Esophageal reflux Type 2 diabetes mellitus without complication, without long-term current use of insulin (HCC) Dyslipidemia Other and unspecified hyperlipidemia ISABELLA (generalized anxiety disorder) Generalized anxiety disorder Attention 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- Primary Mood disorder (HCC) Unspecified episodic mood disorder Major depressive disorder with single episode, in partial remission (HCC) Agitation Other and unspecified special symptom or syndrome, not elsewhere classified Dyslipidemia Other and unspecified hyperlipidemia documented in this encounter [facility] note* Diagnosis Migraine without aura and without status migrainosus, not intractable Migraine without aura, without mention of intractable migraine without mention of status migrainosus Obstructive sleep apnea syndrome Obstructive sleep apnea (adult) (pediatric) Mild intermittent extrinsic asthma without complication GERD without esophagitis Esophageal reflux Type 2 diabetes mellitus without complication, without long-term current use of insulin (HCC) Dyslipidemia Other and unspecified hyperlipidemia ISABELLA (generalized anxiety disorder) Generalized anxiety disorder Elevated alkaline phosphatase level Other nonspecific abnormal serum enzyme levels documented in this encounter [facility] note* Diagnosis Migraine without aura and without status migrainosus, not intractable Migraine without aura, without mention of intractable migraine without mention of status migrainosus Obstructive sleep apnea syndrome Obstructive sleep apnea (adult) (pediatric) Mild intermittent extrinsic asthma without complication GERD without esophagitis Esophageal reflux Type 2 diabetes mellitus without complication, without long-term current use of insulin (HCC) Dyslipidemia Other and unspecified hyperlipidemia ISABELLA (generalized anxiety disorder) Generalized anxiety disorder Elevated alkaline phosphatase level- Primary Other nonspecific abnormal serum enzyme levels Fatty liver Other chronic nonalcoholic liver disease Elevated alkaline phosphatase level Other nonspecific abnormal serum enzyme levels documented in this encounter [facility] note* Diagnosis Migraine without aura and without status migrainosus, not intractable Migraine without aura, without mention of intractable migraine without mention of status migrainosus Obstructive sleep apnea syndrome Obstructive sleep apnea (adult) (pediatric) Mild intermittent extrinsic asthma without complication GERD without esophagitis Esophageal reflux Type 2 diabetes mellitus without complication, without long-term current use of insulin (HCC) Dyslipidemia Other and unspecified hyperlipidemia ISABELLA (generalized anxiety disorder) Generalized anxiety disorder Type 2 diabetes mellitus without complication, without long-term current use of insulin (HCC) documented in this encounter [facility] note* Diagnosis Migraine without aura and without status migrainosus, not intractable Migraine without aura, without mention of intractable migraine without mention of status migrainosus Obstructive sleep apnea syndrome Obstructive sleep apnea (adult) (pediatric) Mild intermittent extrinsic asthma without complication GERD without esophagitis Esophageal reflux Type 2 diabetes mellitus without complication, without long-term current use of insulin (HCC) Dyslipidemia Other and unspecified hyperlipidemia ISABELLA (generalized anxiety disorder) Generalized anxiety disorder Attention 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 documented in this encounter [facility] note* Diagnosis Migraine without aura and without status migrainosus, not intractable Migraine without aura, without mention of intractable migraine without mention of status migrainosus Obstructive sleep apnea syndrome Obstructive sleep apnea (adult) (pediatric) Mild intermittent extrinsic asthma without complication GERD without esophagitis Esophageal reflux Type 2 diabetes mellitus without complication, without long-term current use of insulin (HCC) Dyslipidemia Other and unspecified hyperlipidemia ISABELLA (generalized anxiety disorder) Generalized anxiety disorder Subareolar mass of right breast- Primary [facility] Diagnosis Migraine without aura and without status migrainosus, not intractable Migraine without aura, without mention of intractable migraine without mention of status migrainosus Obstructive sleep apnea syndrome Obstructive sleep apnea (adult) (pediatric) Mild intermittent extrinsic asthma without complication GERD without esophagitis Esophageal reflux Type 2 diabetes mellitus without complication, without long-term current use of insulin (HCC) Dyslipidemia Other and unspecified hyperlipidemia ISABELLA (generalized anxiety disorder) Generalized anxiety disorder Gynecomastia, male- Primary Hypertrophy of breast Low testosterone in male Elevated prolactin level Unspecified endocrine disorder Medication management Encounter for long-term (current) use of other medications documented in this encounter [facility] note* Diagnosis Migraine without aura and without status migrainosus, not intractable Migraine without aura, without mention of intractable migraine without mention of status migrainosus Obstructive sleep apnea syndrome Obstructive sleep apnea (adult) (pediatric) Mild intermittent extrinsic asthma without complication GERD without esophagitis Esophageal reflux Type 2 diabetes mellitus without complication, without long-term current use of insulin (HCC) Dyslipidemia Other and unspecified hyperlipidemia ISABELLA (generalized anxiety disorder) Generalized anxiety disorder Subareolar mass of right breast [facility] Diagnosis Migraine without aura and without status migrainosus, not intractable Migraine without aura, without mention of intractable migraine without mention of status migrainosus Obstructive sleep apnea syndrome Obstructive sleep apnea (adult) (pediatric) Mild intermittent extrinsic asthma without complication GERD without esophagitis Esophageal reflux Type 2 diabetes mellitus without complication, without long-term current use of insulin (HCC) Dyslipidemia Other and unspecified hyperlipidemia ISABELLA (generalized anxiety disorder) Generalized anxiety disorder Subareolar mass of right breast [facility] Diagnosis Migraine without aura and without status migrainosus, not intractable Migraine without aura, without mention of intractable migraine without mention of status migrainosus Obstructive sleep apnea syndrome Obstructive sleep apnea (adult) (pediatric) Mild intermittent extrinsic asthma without complication GERD without esophagitis Esophageal reflux Type 2 diabetes mellitus without complication, without long-term current use of insulin (HCC) Dyslipidemia Other and unspecified hyperlipidemia ISABELLA (generalized anxiety disorder) Generalized anxiety disorder Gynecomastia, male- Primary Hypertrophy of breast [facility] Diagnosis Migraine without aura and without status migrainosus, not intractable Migraine without aura, without mention of intractable migraine without mention of status migrainosus Obstructive sleep apnea syndrome Obstructive sleep apnea (adult) (pediatric) Mild intermittent extrinsic asthma without complication GERD without esophagitis Esophageal reflux Type 2 diabetes mellitus without complication, without long-term current use of insulin (HCC) Dyslipidemia Other and unspecified hyperlipidemia ISABELLA (generalized anxiety disorder) Generalized anxiety disorder Attention 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- Primary [facility] Diagnosis Migraine without aura and without status migrainosus, not intractable Migraine without aura, without mention of intractable migraine without mention of status migrainosus Obstructive sleep apnea syndrome Obstructive sleep apnea (adult) (pediatric) Mild intermittent extrinsic asthma without complication GERD without esophagitis Esophageal reflux Type 2 diabetes mellitus without complication, without long-term current use of insulin (HCC) Dyslipidemia Other and unspecified hyperlipidemia ISABELLA (generalized anxiety disorder) Generalized anxiety disorder Gynecomastia, male Hypertrophy of breast Low testosterone in male Elevated prolactin level Unspecified endocrine disorder [facility] Diagnosis Migraine without aura and without status migrainosus, not intractable Migraine without aura, without mention of intractable migraine without mention of status migrainosus Obstructive sleep apnea syndrome Obstructive sleep apnea (adult) (pediatric) Mild intermittent extrinsic asthma without complication GERD without esophagitis Esophageal reflux Type 2 diabetes mellitus without complication, without long-term current use of insulin (HCC) Dyslipidemia Other and unspecified hyperlipidemia ISABELLA (generalized anxiety disorder) Generalized anxiety disorder Gynecomastia, male- Primary Hypertrophy of breast Elevated prolactin level Unspecified endocrine disorder Abnormal finding on MRI of brain Nonspecific (abnormal) findings on radiological and other examination of skull and head [facility] Diagnosis Migraine without aura and without status migrainosus, not intractable Migraine without aura, without mention of intractable migraine without mention of status migrainosus Obstructive sleep apnea syndrome Obstructive sleep apnea (adult) (pediatric) Mild intermittent extrinsic asthma without complication GERD without esophagitis Esophageal reflux Type 2 diabetes mellitus without complication, without long-term current use of insulin (HCC) Dyslipidemia Other and unspecified hyperlipidemia ISABELLA (generalized anxiety disorder) Generalized anxiety disorder Gynecomastia- Primary Hypertrophy of breast Acute pain of right shoulder Elevated prolactin level Unspecified endocrine disorder Pituitary adenoma (HCC) Benign neoplasm of pituitary gland and craniopharyngeal duct (pouch) [facility] Diagnosis Migraine without aura and without status migrainosus, not intractable Migraine without aura, without mention of intractable migraine without mention of status migrainosus Obstructive sleep apnea syndrome Obstructive sleep apnea (adult) (pediatric) Mild intermittent extrinsic asthma without complication GERD without esophagitis Esophageal reflux Type 2 diabetes mellitus without complication, without long-term current use of insulin (HCC) Dyslipidemia Other and unspecified hyperlipidemia ISABELLA (generalized anxiety disorder) Generalized anxiety disorder Well adult exam- Primary Routine general medical examination at a health care facility Type 2 diabetes mellitus without complication, without long-term current use of insulin ([facility]) Diabetic eye exam ([facility]) Type II or unspecified type diabetes mellitus without mention of complication, not stated as uncontrolled Dyslipidemia Other and unspecified hyperlipidemia GERD without esophagitis Esophageal reflux Migraine without aura and without status migrainosus, not intractable Migraine without aura, without mention of intractable migraine without mention of status migrainosus Attention 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 Agitation Other and unspecified special symptom or syndrome, not elsewhere classified ISABELLA (generalized anxiety disorder) Generalized anxiety disorder Major depressive disorder with single episode, in partial remission ([facility]) Mood disorder ([facility]) Unspecified episodic mood disorder Obesity, Class II, BMI 35-39.9 Obesity, unspecified Obstructive sleep apnea syndrome Obstructive sleep apnea (adult) (pediatric) Primary insomnia Persistent disorder of initiating or maintaining sleep Fatty liver Other chronic nonalcoholic liver disease Gynecomastia, male Hypertrophy of breast Abnormal finding on MRI of brain Nonspecific (abnormal) findings on radiological and other examination of skull and head Anemia, unspecified type Abnormal lung sounds Abnormal chest sounds Callus of foot Corns and callosities SOB (shortness of breath) Shortness of breath Abnormal lung sounds Abnormal chest sounds [facility] Diagnosis Migraine without aura and without status migrainosus, not intractable Migraine without aura, without mention of intractable migraine without mention of status migrainosus Obstructive sleep apnea syndrome Obstructive sleep apnea (adult) (pediatric) Mild intermittent extrinsic asthma without complication GERD without esophagitis Esophageal reflux Type 2 diabetes mellitus without complication, without long-term current use of insulin ([facility]) Dyslipidemia Other and unspecified hyperlipidemia ISABELLA (generalized anxiety disorder) Generalized anxiety disorder Abnormal lung sounds Abnormal chest sounds [facility] [facility] Diagnosis Migraine without aura and without status migrainosus, not intractable Migraine without aura, without mention of intractable migraine without mention of status migrainosus Obstructive sleep apnea syndrome Obstructive sleep apnea (adult) (pediatric) Mild intermittent extrinsic asthma without complication (HCC) GERD without esophagitis Esophageal reflux Type 2 diabetes mellitus without complication, without long-term current use of insulin (HCC) Dyslipidemia Other and unspecified hyperlipidemia ISABELLA (generalized anxiety disorder) Generalized anxiety disorder Acute pain of right shoulder documented in this encounter [facility] Diagnosis Migraine without aura and without status migrainosus, not intractable Migraine without aura, without mention of intractable migraine without mention of status migrainosus Obstructive sleep apnea syndrome Obstructive sleep apnea (adult) (pediatric) Mild intermittent extrinsic asthma without complication (HCC) GERD without esophagitis Esophageal reflux Type 2 diabetes mellitus without complication, without long-term current use of insulin (HCC) Dyslipidemia Other and unspecified hyperlipidemia ISABELLA (generalized anxiety disorder) Generalized anxiety disorder Gynecomastia, male- Primary Hypertrophy of breast Abnormal brain MRI Nonspecific (abnormal) findings on radiological and other examination of skull and head documented in this encounter [facility] note* Diagnosis Migraine without aura and without status migrainosus, not intractable Migraine without aura, without mention of intractable migraine without mention of status migrainosus Obstructive sleep apnea syndrome Obstructive sleep apnea (adult) (pediatric) Mild intermittent extrinsic asthma without complication (HCC) GERD without esophagitis Esophageal reflux Type 2 diabetes mellitus without complication, without long-term current use of insulin (HCC) Dyslipidemia Other and unspecified hyperlipidemia ISABELLA (generalized anxiety disorder) Generalized anxiety disorder Type 2 diabetes mellitus without complication, without long-term current use of insulin (HCC) documented in this encounter [facility]* Diagnosis Migraine without aura and without status migrainosus, not intractable Migraine without aura, without mention of intractable migraine without mention of status migrainosus Obstructive sleep apnea syndrome Obstructive sleep apnea (adult) (pediatric) Mild intermittent extrinsic asthma without complication (HCC) GERD without esophagitis Esophageal reflux Type 2 diabetes mellitus without complication, without long-term current use of insulin (HCC) Dyslipidemia Other and unspecified hyperlipidemia ISABELLA (generalized anxiety disorder) Generalized anxiety disorder Bacterial pneumonia- Primary Bacterial pneumonia, unspecified Gastroesophageal reflux disease without esophagitis Esophageal reflux Belching Flatulence, eructation, and gas pain Attention 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 [facility] Diagnosis Migraine without aura and without status migrainosus, not intractable Migraine without aura, without mention of intractable migraine without mention of status migrainosus Obstructive sleep apnea syndrome Obstructive sleep apnea (adult) (pediatric) Mild intermittent extrinsic asthma without complication (HCC) GERD without esophagitis Esophageal reflux Type 2 diabetes mellitus without complication, without long-term current use of insulin (HCC) Dyslipidemia Other and unspecified hyperlipidemia ISABELLA (generalized anxiety disorder) Generalized anxiety disorder Gastroesophageal reflux disease, unspecified whether esophagitis present- Primary Class 2 severe obesity with serious comorbidity and body mass index (BMI) of 36.0 to 36.9 in adult, unspecified obesity type (HCC) NAFLD (nonalcoholic fatty liver disease) Other chronic nonalcoholic liver disease Esophageal dysphagia Dysphagia, pharyngoesophageal phase MIKE (obstructive sleep apnea) Obstructive sleep apnea (adult) (pediatric) documented in this encounter [facility] note* Diagnosis Migraine without aura and without status migrainosus, not intractable Migraine without aura, without mention of intractable migraine without mention of status migrainosus Obstructive sleep apnea syndrome Obstructive sleep apnea (adult) (pediatric) Mild intermittent extrinsic asthma without complication (HCC) GERD without esophagitis Esophageal reflux Type 2 diabetes mellitus without complication, without long-term current use of insulin (HCC) Dyslipidemia Other and unspecified hyperlipidemia ISABELLA (generalized anxiety disorder) Generalized anxiety disorder Attention 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- Primary Gastroesophageal reflux disease, unspecified whether esophagitis present Esophageal dysphagia Dysphagia, pharyngoesophageal phase documented in this encounter [facility] note* Diagnosis Migraine without aura and without status migrainosus, not intractable Migraine without aura, without mention of intractable migraine without mention of status migrainosus Obstructive sleep apnea syndrome Obstructive sleep apnea (adult) (pediatric) Mild intermittent extrinsic asthma without complication (HCC) GERD without esophagitis Esophageal reflux Type 2 diabetes mellitus without complication, without long-term current use of insulin (HCC) Dyslipidemia Other and unspecified hyperlipidemia ISABELLA (generalized anxiety disorder) Generalized anxiety disorder Type 2 diabetes mellitus without complication, without long-term current use of insulin (HCC) Gastroesophageal reflux disease, unspecified whether esophagitis present Esophageal dysphagia Dysphagia, pharyngoesophageal phase documented in this encounter [facility] note* Diagnosis Migraine without aura and without status migrainosus, not intractable Migraine without aura, without mention of intractable migraine without mention of status migrainosus Obstructive sleep apnea syndrome Obstructive sleep apnea (adult) (pediatric) Mild intermittent extrinsic asthma without complication (HCC) GERD without esophagitis Esophageal reflux Type 2 diabetes mellitus without complication, without long-term current use of insulin (HCC) Dyslipidemia Other and unspecified hyperlipidemia ISABELLA (generalized anxiety disorder) Generalized anxiety disorder Adhesive capsulitis of right shoulder Adhesive capsulitis of shoulder Gastroesophageal reflux disease, unspecified whether esophagitis present Esophageal dysphagia Dysphagia, pharyngoesophageal phase documented in this encounter [facility] note* Diagnosis Migraine without aura and without status migrainosus, not intractable Migraine without aura, without mention of intractable migraine without mention of status migrainosus Obstructive sleep apnea syndrome Obstructive sleep apnea (adult) (pediatric) Mild intermittent extrinsic asthma without complication (HCC) GERD without esophagitis Esophageal reflux Type 2 diabetes mellitus without complication, without long-term current use of insulin (HCC) Dyslipidemia Other and unspecified hyperlipidemia ISABELLA (generalized anxiety disorder) Generalized anxiety disorder Pituitary gland enlarged (HCC)- Primary Other disorders of the pituitary and other syndromes of diencephalohypophyseal origin Gynecomastia, male Hypertrophy of breast Elevated prolactin level Unspecified endocrine disorder Abnormal finding on MRI of brain Nonspecific (abnormal) findings on radiological and other examination of skull and head Gynecomastia Hypertrophy of breast Gastroesophageal reflux disease, unspecified whether esophagitis present Esophageal dysphagia Dysphagia, pharyngoesophageal phase documented in this encounter [facility] note* Diagnosis Migraine without aura and without status migrainosus, not intractable Migraine without aura, without mention of intractable migraine without mention of status migrainosus Obstructive sleep apnea syndrome Obstructive sleep apnea (adult) (pediatric) Mild intermittent extrinsic asthma without complication (HCC) GERD without esophagitis Esophageal reflux Type 2 diabetes mellitus without complication, without long-term current use of insulin (HCC) Dyslipidemia Other and unspecified hyperlipidemia ISABELLA (generalized anxiety disorder) Generalized anxiety disorder Tachycardia- Primary Tachycardia, unspecified Lightheadedness Dizziness and giddiness Gastroesophageal reflux disease, unspecified whether esophagitis present Esophageal dysphagia Dysphagia, pharyngoesophageal phase documented in this encounter [facility] note* Diagnosis Migraine without aura and without status migrainosus, not intractable Migraine without aura, without mention of intractable migraine without mention of status migrainosus Obstructive sleep apnea syndrome Obstructive sleep apnea (adult) (pediatric) Mild intermittent extrinsic asthma without complication (HCC) GERD without esophagitis Esophageal reflux Type 2 diabetes mellitus without complication, without long-term current use of insulin (HCC) Dyslipidemia Other and unspecified hyperlipidemia ISABELLA (generalized anxiety disorder) Generalized anxiety disorder Anemia, unspecified type- Primary Gastroesophageal reflux disease, unspecified whether esophagitis present Esophageal dysphagia Dysphagia, pharyngoesophageal phase documented in this encounter [facility] note* Diagnosis Migraine without aura and without status migrainosus, not intractable Migraine without aura, without mention of intractable migraine without mention of status migrainosus Obstructive sleep apnea syndrome Obstructive sleep apnea (adult) (pediatric) Mild intermittent extrinsic asthma without complication (HCC) GERD without esophagitis Esophageal reflux Type 2 diabetes mellitus without complication, without long-term current use of insulin (HCC) Dyslipidemia Other and unspecified hyperlipidemia ISABELLA (generalized anxiety disorder) Generalized anxiety disorder Adhesive capsulitis of right shoulder- Primary Adhesive capsulitis of shoulder Gastroesophageal reflux disease, unspecified whether esophagitis present Esophageal dysphagia Dysphagia, pharyngoesophageal phase documented in this encounter [facility] note* Diagnosis Migraine without aura and without status migrainosus, not intractable Migraine without aura, without mention of intractable migraine without mention of status migrainosus Obstructive sleep apnea syndrome Obstructive sleep apnea (adult) (pediatric) Mild intermittent extrinsic asthma without complication (HCC) GERD without esophagitis Esophageal reflux Type 2 diabetes mellitus without complication, without long-term current use of insulin (HCC) Dyslipidemia Other and unspecified hyperlipidemia ISABELLA (generalized anxiety disorder) Generalized anxiety disorder Family history of colon cancer- Primary Family history of malignant neoplasm of gastrointestinal tract Anemia, unspecified type Gastroesophageal reflux disease, unspecified whether esophagitis present Esophageal dysphagia Dysphagia, pharyngoesophageal phase documented in this encounter [facility] note* Diagnosis Migraine without aura and without status migrainosus, not intractable Migraine without aura, without mention of intractable migraine without mention of status migrainosus Obstructive sleep apnea syndrome Obstructive sleep apnea (adult) (pediatric) Mild intermittent extrinsic asthma without complication (HCC) GERD without esophagitis Esophageal reflux Type 2 diabetes mellitus without complication, without long-term current use of insulin (HCC) Dyslipidemia Other and unspecified hyperlipidemia ISABELLA (generalized anxiety disorder) Generalized anxiety disorder Iron deficiency anemia, unspecified iron deficiency anemia type- Primary Gastroesophageal reflux disease, unspecified whether esophagitis present Esophageal dysphagia Dysphagia, pharyngoesophageal phase documented in this [facility] Author Prince Villanueva [facility] April 14, 2023 5:05pm Note Date/Time April 14, 2023 4:55p m [facility] Medical Records Department [address] [place] [address] History & Physical Exam 04/14/23 1651 MR#: [id number] Acct: [id number] Name: BIANCA DELAROSA Rep #:[id number] : 1975 47 From: Prince [place] PCP: Dr. Humberto Jackson MD Status:[facility] Location: [facility] A2 HPI - General General Date of Service: 04/14/23 HPI Narrative BIANCA DELAROSA, is a 47 M who presents to [facility] ER under direction from his PCP after presenting there with complaints of perirectal painfor the past 4 days and feelings of a lump. Patient states that he had a similar episode in September of last year, however, states that this area spontaneously drained by the time he reached medical attention and was managed simply through packing thereafter. He denies any fevers or chills at home. He is a type II diabetic and confesses that his glucose monitor fell off and he hasbeen unable to secure a placement but suspects that his blood sugars have been elevated. Patient's ER work-up is notable for CMP that shows a blood glucose of 300. CBC shows no leukocytosis but left shift is present. CT imaging of the abdomen pelvis was obtained showing a left-sided perirectal abscess. Patient has a family history of colon cancer (diagnosed in his father at the ageof 48) and thus has placed him in a high risk screening cohort such that he has been undergoing colonoscopies every 5 years since the age of 27. He reports that his last colonoscopy was completed last year and was without remarkable findings. [facility] Medical History (Updated 04/14/23 @ 17:[address] Prince Villanueva MD) Abnormal chest CT Acute respiratory failure Acute respiratory failure with hypoxia Anxiety and depression Chronic headache Community acquired pneumonia Diabetes mellitus, type II GERD (gastroesophageal reflux disease) HLD (hyperlipidemia) Multiple thyroid nodules Obesity (BMI 30-39.9) MIKE (obstructive sleep apnea) Pneumonia Restrictive airway disease Shortness of breath Home Medications esomeprazole magnesium 40 mg capsule,delayed release 40 mg PO QHS gerd 10/10/17 [History Last Taken 10/19/18] fenofibrate 50 mg capsule 54 mg PO DAILY cholesterol 10/10/17 [History Last Taken 10/20/18] multivitamin 1 ea PO DAILY supplement 10/10/17 [History Last Taken 10/20/18] atorvastatin 20 mg tablet 20 mg PO DAILY 03/22/18 [History Last Taken 10/20/18] fluoxetine 40 mg capsule 60 mg PO QDAY 03/22/18 [History Last Taken 10/20/18] metformin 500 mg tablet 1,000 mg PO BID diabetes 03/22/18 [History Last Taken 10/20/18] Fish Oil 1,000 mg Capsule 1,000 mg PO BID 10/20/18 [History Last Taken 10/20/18] Magnesium 250 mg PO BID 10/20/18 [History Last Taken 10/20/18] doxepin 10 mg capsule 10 mg PO QHS 10/20/18 [History Last Taken 10/19/18] olanzapine 2.5 mg tablet 2.5 mg PO QHS 10/20/18 [History Last Taken 10/19/18] riboflavin (vitamin B2) 100 mg tablet 100 mg PO BID 10/20/18 [History Last Taken 10/20/18] zonisamide 25 mg capsule 25 mg PO DAILY 10/20/18 [History Last Taken 10/20/18] empagliflozin 25 mg tablet 25 mg PO DAILY #30 tabs 10/22/18 [Rx Last Taken Unknown] Allergy/AdvReac Type Severity Reaction Status Date / Time citalopram Allergy Unknown Unknown Verified 03/06/19 14:55 venlafaxine Allergy Unknown Unknown Verified 03/06/19 14:55 metoclopramide [From Reglan] Allergy weirds me Verified 03/06/19 14:55 out sertraline [From Zoloft] Allergy sexual Verified 03/06/19 14:55 side effects topiramate [From Topamax] Allergy Unknown Verified 03/06/19 14:55 Family History Father Colon cancer at age 53 Heart disease Myocardial infarction Surgical History Hx of appendectomy Hx of tonsillectomy Social History Smoking Status: Never smoker second hand exposure: No alcohol intake: never substance use type: does not use caffeine: Yes what type of physical activity do you participate in: none frequency: does not exercise seatbelt use: always ROS Constitutional Constitutional: Denies fever(s) or night sweats Gastrointestinal Gastrointestinal: Reports constipation; Denies hematochezia or melena Vital Signs Vital Signs Vital Signs: 04/14/23 14:01 Temperature 97.1 F L Temperature Source Temporal Pulse Rate 123 H Respiratory Rate 18 Blood Pressure 144/108 H Blood Pressure Mean 120 Pulse Ox 95 Oxygen Delivery Method Room Air Weight Weight: 287 lb 8 oz Body Mass Index (BMI) 36.9 Physical Exam Const alert and oriented x3 Constitutional Narrative: Mild distress from perirectal discomfort Resp normal respiratory effort GI GI Narrative: Cellulitic changes with underlying fluctuance along patient's left buttock. This is exquisitely tender to palpation. There is no evidence of spontaneous drainage. Results Lab / Micro Data 04/14/23 14:50 04/14/23 14:50 Labs: Laboratory Results - last 24 hr 04/14/23 14:50: WBC 9.8, RBC 4.74, Hgb 15.2, Hct 42.2, MCV 89.0, MCH 32.1 H, MCHC 36.0, RDW Std Deviation 37.4, RDW Coeff of Katie 11.6, Plt Count 203, MPV 12.4 H, Immature Gran % (Auto) 0.300, Neut % (Auto) 73.5 H, Lymph % (Auto) 19.3,Tensas % (Auto) 5.8, Eos % (Auto) 0.6, Baso % (Auto) 0.5, Absolute Neuts (auto) 7.2, Absolute Lymphs (auto) 1.89, Nucleated RBC % 0, Sodium 135 L, Potassium 3.7, Chloride 102, Carbon Dioxide 23.0, Anion Gap 10, BUN 9, Creatinine 0.79, Estim Creat Clear Calc 132.95, Est GFR (MDRD) Af Amer 134, Est GFR (MDRD) Non-Af111, BUN/Creatinine Ratio 11.3, Glucose 300 H, Calcium 8.9 Assessment & Plan Assessment/Plan (1) Perirectal abscess: PLAN: This is a 47-year-old diabetic male who presents with a 96-hour history ofperirectal discomfort and no clinical evidence of a perirectal abscess. There is been no drainage of this abscess and given patient's tenderness on exam I recommend operative incision and drainage. Patient reports that this is his second such episode which raises my suspicion for possible fistula in ano. We will therefore plan to perform an anorectal exam under anesthesia and if a fistulous tract is identified proceed with seton drain placement. And lieu of afistulous tract, we will simply perform incision and drainage with packing. Patient's spouse confirms that she is familiar with this type of wound care. Given patient's comorbidities, I have recommended post procedure inpatient observation with IV antibiotic therapy. Operating room has been notified and wewill proceed emergently for perirectal abscess incision and drainage. Charges/Coding Visit Charges Inpatient E&M: 06184 Init Hosp L2 04/14/23 1705 <Electronically signed by Prince Villanueva MD> Cosigner Signature (if applicable): CC: Dr. Humberto Jackson MD; Dr. Prince Villanueva MD~ Signed [facility] Work Phone: Reason for referral (narrative)* Outpatient Procedure (Routine) - Closed Specialty Diagnoses / Procedures Referred By Carlos cortes Referred To Contact [facility] Diagnoses Family history of colon cancer in father Procedures COLONOSCOPY SCREENING COLONOSCOPY FLX DX W/COLLJ SPEC WHEN PFRMD Johanna Bliss MD [address] [place] [place] [address] [facility] [place] [address] [place] [address] Referral ID Status Reason Start Date Expiration Date V isits Requested Visits Authorized [id number] Closed Auto-Generate d Referral 07/22/2022 07/22/2023 1 1 [facility] for referral (narrative)* Diagnostic Procedure Only (Routine) - Closed Specialty Diagnoses / Procedures Referred By Carlos cortes Referred To Contact [facility] Diagnoses Acute pain of right shoulder Procedures XR SHOULDER GENERAL 3V OR MORE AP/TRUE AP/OTHER RIGHT RADEX SHOULDER COMPLETE MINIMUM 2 VIEWS Dominik Kelley, GHULAM.CIRCUIT COURT CLERK [address] [place] [address] [place] [address] Referral ID Status Reason Start Date Expiration Date V isits Requested Visits Authorized [id number] Closed Auto-Generate d Referral 05/21/2024 06/20/2025 1 1 [facility] for referral (narrative)* Diagnostic Procedure Only (Routine) - Closed Specialty Diagnoses / Procedures Referred By Contac t Referred To Contact [facility] Diagnoses Elevated alkaline phosphatase level Procedures US ABD RIGHT UPPER QUADRANT US ABDOMINAL REAL TIME W/IMAGE LIMITED Humberto Jackson MD [address] [place] [address] [facility] Referral ID Status Reason Start Date Expiration Date V isits Requested Visits Authorized [id number] Closed Auto-Generate d Referral 10/17/2024 11/16/2025 1 1 [facility] for visit Narrative* Outpatient Procedure (Routine) - Closed Specialty Diagnoses / Procedures Referred By Contac t Referred To Contact [facility] Diagnoses Family history of colon cancer in father Procedures COLONOSCOPY SCREENING COLONOSCOPY FLX DX W/COLLJ SPEC WHEN PFRMD Johanna Bliss MD [address] [place] [address] [facility] [place] [address] [place] [address] Referral ID Status Reason Start Date Expiration Date V isits Requested Visits Authorized [id number] Closed Auto-Generate d Referral 07/22/2022 07/22/2023 1 1 [facility] for visit Narrative* Diagnostic Procedure Only (Routine) - Closed Specialty Diagnoses / Procedures Referred By Contac t Referred To Contact [facility] Diagnoses Multiple thyroid nodules Procedures US THYROID/PARATHYROID US SOFT TISSUE HEAD & NECK REAL TIME IMGE Torres Todd APRN.CIRCUIT COURT CLERK [address] [address] [place] [address] Referral ID Status Reason Start Date Expiration Date V isits Requested Visits Authorized [id number] Closed Auto-Generate d Referral 07/07/2023 08/05/2024 1 1 [facility] for visit Narrative* Diagnostic Procedure Only (Routine) - Closed Specialty Diagnoses / Procedures Referred By Contac t Referred To Contact [facility] Diagnoses Acute pain of right shoulder Procedures XR SHOULDER GENERAL 3V OR MORE AP/TRUE AP/OTHER RIGHT RADEX SHOULDER COMPLETE MINIMUM 2 VIEWS Dominik Kelley, TAX ACCOUNTANT.CIRCUIT COURT CLERK [address] [place] [address] [place] [address] Referral ID Status Reason Start Date Expiration Date V isits Requested Visits Authorized [id number] Closed Auto-Generate d Referral 05/21/2024 06/20/2025 1 1 [facility] for visit Narrative* Diagnostic Procedure Only (Routine) - Closed Specialty Diagnoses / Procedures Referred By Contac t Referred To Contact [facility] Diagnoses Subareolar mass of right breast Procedures FIGUEROA DIAGNOSTIC BILATERAL DIAGNOSTIC MAMMOGRAPHY COMPUTER-[place] [address] [place] [address] Phone: tel: fax: [facility] [address] [facility] [address] Referral ID Status Reason Start Date Expiration Date V isits Requested Visits Authorized [id number] Closed Auto-Generate d Referral 11/22/2024 12/22/2025 1 1 [facility] for visit Narrative* MRI/CT (Routine) - Closed Specialty Diagnoses / Procedures Referred By Contac t Referred To Contact [facility] Diagnoses Acute pain of right shoulder Procedures MRI SHOULDER WO IVCON RIGHT MRI ANY JT UPPER EXTREMITY W/O CONTRAST MATRL Humberto Jackson MD [address] [place] [address] Phone: tel: fax: [place] [address] Referral ID Status Reason Start Date Expiration Date V isits Requested Visits Authorized [id number] Closed Auto-Generate d Referral 12/20/2024 01/19/2026 [address] [facility] Summary Purpose Family History No Family History Records Found Relationship Condition Age at Onset Recorded Date/T ariadna father Malignant neoplasm of colon Unknown Cardiac disease Unknown Myocardial infarction Unknown Advance Directives No Advanced Directives Records FoundDocuments on File Type Date Recorded Patient Virtual Assistant Expl anation Advance Directive(s) 01/20/2021 6:28 PM Advance Directive(s) 02/01/2020 3:50 PM Advance Directive(s) 10/20/2018 4:37 PM Advance Directive(s) 07/14/2018 4:43 PM Advance Directive(s) 09/08/2017 9:38 AM Advance Directive(s) 08/16/2017 10:21 AM Documents on File Type Date Recorded Patient Virtual Assistant Expl anation Advance Directive(s) 01/20/2021 6:28 PM Advance Directive(s) 02/01/2020 3:50 PM Advance Directive(s) 10/20/2018 4:37 PM Advance Directive(s) 07/14/2018 4:43 PM Advance Directive(s) 09/08/2017 9:38 AM Advance Directive(s) 08/16/2017 10:21 AM Advance Directive Response Recorded Date/ Time Living Will No April 14, 2023 2 :47pm Power of Deputy Insurance Commissioner No April 14, 2023 2:47pm Advance Directive Response Recorded Date/ Time Living Will No April 14, 2023 9 :00pm Power of Deputy Insurance Commissioner No April 14, 2023 9:00pm Reason for Referral Specialty Diagnoses / Procedures Referred By Contphilip t Referred To Contact Podiatry Diagnoses Type 2 diabetes mellitus without complication, without long-term current use of insulin (HCC) Procedures CONSULT TO PODIATRY OFFICE/OUTPATIENT [facility] 60-74 MINUTES Torres Monaco, TAX ACCOUNTANT.CIRCUIT COURT CLERK [address] [address] Referral ID Status Reason Start Date Expiration Date Visits Requested Visits Authorized [id number] Authorized PCP Requested Referral 03/04/2022 03/04/2023 1 1 Specialty Diagnoses / Procedures Referred By Contphilip t Referred To Contact Diagnoses Obstructive sleep apnea syndrome Procedures CONSULT TO SLEEP MEDICINE - ADULT OFFICE/OUTPATIENT [facility] 60-74 MINUTES Humberto Jackson MD [address] [place] [address] Referral ID Status Reason Start Date Expiration Date Visits Requested Visits Authorized [id number] Authorized PCP Requested Referral 06/04/2022 06/04/2023 1 1 Specialty Diagnoses / Procedures Referred By Contac t Referred To Contact General Surgery Diagnoses Abscess of buttock Pilonidal cyst Procedures CONSULT TO GENERAL SURGERY OFFICE/OUTPATIENT [facility] 60-74 MINUTES Kenyatta Castaneda PA-C [address] [place] [address] Referral ID Status Reason Start Date Expiration Date Visits Requested Visits Authorized [id number] Authorized PCP Requested Referral 08/17/2022 08/17/2023 1 1 Specialty Diagnoses / Procedures Referred By Contac t Referred To Contact Radiology Diagnoses Right foot pain Procedures XR foot right 3+ views Stanton Peters DO [address] [place] [address] Referral ID Status Reason Start Date Expiration Date Visits Requested Visits Authorized [id number] Authorized Perform Procedure 10/27/2023 10/26/2024 1 1 Specialty Diagnoses / Procedures Referred By Contac t Referred To Contact Diagnoses Multiple thyroid nodules Procedures CONSULT TO ENDOCRINE SURGERY OFFICE/OUTPATIENT [facility] 60 MINUTES Torres Monaco, GHULAM.CIRCUIT COURT CLERK [address] [place] [id number] Referral ID Status Reason Start Date Expiration Date Visits Requested Visits Authorized [id number] Authorized PCP Requested Referral 01/24/2024 01/23/2025 1 1 Specialty Diagnoses / Procedures Referred By Contac t Referred To Contact [facility] Diagnoses Acute pain of right shoulder Procedures CONSULT TO PHYSICAL THERAPY PHYSICAL THERAPY EVALUATION HIGH COMPLEX 45 MINS Dominik Kelley APRN.CIRCUIT COURT CLERK [address] [place] [address] [facility] [place] [address] [place] [address] Referral ID Status Reason Start Date Expiration Date Visits Requested Visits Authorized [id number] Authorized Auto-Generat ed Referral 02/07/2024 10/08/2024 20 20 Specialty Diagnoses / Procedures Referred By Carlos t Referred To Contact XR IMAGING Diagnoses Acute pain of right shoulder Procedures XR SHOULDER GENERAL 3V OR MORE AP/TRUE AP/OTHER RIGHT RADEX SHOULDER COMPLETE MINIMUM 2 VIEWS Dominik Kelley APRN.CIRCUIT COURT CLERK [address] [place] [address] [place] [address] Referral ID Status Reason Start Date Expiration Date V isits Requested Visits Authorized [id number] Closed Auto-Generate d Referral 05/21/2024 06/20/2025 1 1 Chief Complaint and Reason for Visit Chief Complaint Abscess ABSCESS Reason for Visit Perirectal abscess Chief Complaint Abscess ABSCESS Abscess Reason for Visit Perirectal abscess Medications Administered Section Inactive Administered Medications - up to 3 most recent administrations Medication Order MAR Action Action Date Dose Rate Site fentaNYL 50 mcg/mL 25-100 mcg injection (SUBLIMAZE) 25-100 mcg, INTRAVENOUS, DIRECTED, Starting on Mon08/30/22 at 0800, Until Mon08/30/22 at 1159, DOSING DIRECTED BY PHYSICIAN FOR PROCEDURAL SEDATION ONLY, Intraprocedure Given 08/30/2022 7:54 AM EST 50 mcg Given 08/30/2022 7:34 AM EST 50 mcg lactated ringers iv infusion 75 mL/hr, INTRAVENOUS, CONTINUOUS, Starting on Mon08/30/22 at 0700, Until Mon08/30/22 at 0805, Preprocedure New Bag/Syringe/Bottle 08/30/2022 7:15 AM EST 75 mL/hr 75 mL/hr midazolam (PF) 1-5 mg injection (VERSED) 1-5 mg, INTRAVENOUS, DIRECTED, Starting on Mon08/30/22 at 0800, Until Mon08/30/22 at 1159, DOSING DIRECTED BY PHYSICIAN FOR PROCEDURAL SEDATION ONLY, Intraprocedure Given 08/30/2022 7:44 AM EST 2 mg Given 08/30/2022 7:37 AM EST 1 mg Given 08/30/2022 7:34 AM EST 4 mg Health Concerns Infection Onset Date Last Indicated Resolved Time COVID-19 Confirmed Comment:Positive home test 09/21/2023. 09/21/2023 09/23/2023 10/03/2023 8:[address] Additional Source Comments (unrecognized sect ion and content) No Status Records FoundNo Status Records FoundNo Status Records FoundNo Status Records FoundNo Status Records FoundNo Status Records FoundNo Status Records FoundNo Status Records Found INFORMATION SOURCE (unrecogn ized section and content) DATE CREATED AUTHOR 04/03/2018 [facility] DATE CREATED AUTHOR AUTHOR'S ORGANIZ ATION 10/23/2018 [facility] DATE CREATED AUTHOR AUTHOR'S ORGANIZ ATION 03/05/2020 [facility] DATE CREATED AUTHOR AUTHOR'S ORGANIZ ATION 04/01/2024 [facility] DATE CREATED AUTHOR AUTHOR'S ORGANIZ ATION 04/26/2024 [facility] DATE CREATED AUTHOR AUTHOR'S ORGANIZ ATION 01/14/2025 [facility] DATE CREATED AUTHOR AUTHOR'S ORGANIZ ATION 03/09/2025 [facility] DATE CREATED AUTHOR AUTHOR'S ORGANIZ ATION 03/11/2025 [facility] Source Comments (unrecognize d section and content) In the event this informatio n is protected by the Federal Confidentiality of Alcohol and Drug Abuse Patient Records regulations: The Federal rules restrict any use of the information to criminally investigate or prosecute any alcohol or drug abuse patient.[facility] the event this information is protected by the Federal Confidentiality of Alcohol and Drug Abuse Patient Records regulations: The Federal rules restrict any use of the information to criminally investigate or prosecute any alcohol or drug abuse patient.[facility] the event this information is protected by the Federal Confidentiality of Alcohol and Drug Abuse Patient Records regulations: The Federal rules restrict any use of the information to criminally investigate or prosecute any alcohol or drug abuse patient.[facility] the event this information is protected by the Federal Confidentiality of Alcohol and Drug Abuse Patient Records regulations: The Federal rules restrict any use of the information to criminally investigate or prosecute any alcohol or drug abuse patient.[facility] the event this information is protected by the Federal Confidentiality of Alcohol and Drug Abuse Patient Records regulations: The Federal rules restrict any use of the information to criminally investigate or prosecute any alcohol or drug abuse patient.[facility] the event this information is protected by the Federal Confidentiality of Alcohol and Drug Abuse Patient Records regulations: The Federal rules restrict any use of the information to criminally investigate or prosecute any alcohol or drug abuse patient.[facility] the event this information is protected by the Federal Confidentiality of Alcohol and Drug Abuse Patient Records regulations: The Federal rules restrict any use of the information to criminally investigate or prosecute any alcohol or drug abuse patient.[facility]In the event this information is protected by the Federal Confidentiality of Alcohol and Drug Abuse Patient Records regulations: The Federal rules restrict any use of the information to criminally investigate or prosecute any alcohol or drug abuse patient.[facility] the event this information is protected by the Federal Confidentiality of Alcohol and Drug Abuse Patient Records regulations: The Federal rules restrict any use of the information to criminally investigate or prosecute any alcohol or drug abuse patient.[facility]In the event this information is protected by the Federal Confidentiality of Alcohol and Drug Abuse Patient Records regulations: The Federal rules restrict any use of the information to criminally investigate or prosecute any alcohol or drug abuse patient.[facility]In the event this information is protected by the Federal Confidentiality of Alcohol and Drug Abuse Patient Records regulations: The Federal rules restrict any use of the information to criminally investigate or prosecute any alcohol or drug abuse patient.[facility]In the event this information is protected by the Federal Confidentiality of Alcohol and Drug Abuse Patient Records regulations: The Federal rules restrict any use of the information to criminally investigate or prosecute any alcohol or drug abuse patient.[facility]In the event this information is protected by the Federal Confidentiality of Alcohol and Drug Abuse Patient Records regulations: The Federal rules restrict any use of the information to criminally investigate or prosecute any alcohol or drug abuse patient.[facility]In the event this information is protected by the Federal Confidentiality of Alcohol and Drug Abuse Patient Records regulations: The Federal rules restrict any use of the information to criminally investigate or prosecute any alcohol or drug abuse patient.[facility] HospitalIn the event this information is protected by the Federal Confidentiality of Alcohol and Drug Abuse Patient Records regulations: The Federal rules restrict any use of the information to criminally investigate or prosecute any alcohol or drug abuse patient.[facility] HospitalIn the event this information is protected by the Federal Confidentiality of Alcohol and Drug Abuse Patient Records regulations: The Federal rules restrict any use of the information to criminally investigate or prosecute any alcohol or drug abuse patient.[facility] HospitalIn the event this information is protected by the Federal Confidentiality of Alcohol and Drug Abuse Patient Records regulations: The Federal rules restrict any use of the information to criminally investigate or prosecute any alcohol or drug abuse patient.[facility] HospitalIn the event this information is protected by the Federal Confidentiality of Alcohol and Drug Abuse Patient Records regulations: The Federal rules restrict any use of the information to criminally investigate or prosecute any alcohol or drug abuse patient.[facility] HospitalIn the event this information is protected by the Federal Confidentiality of Alcohol and Drug Abuse Patient Records regulations: The Federal rules restrict any use of the information to criminally investigate or prosecute any alcohol or drug abuse patient.[facility] HospitalIn the event this information is protected by the Federal Confidentiality of Alcohol and Drug Abuse Patient Records regulations: The Federal rules restrict any use of the information to criminally investigate or prosecute any alcohol or drug abuse patient.[facility] HospitalIn the event this information is protected by the Federal Confidentiality of Alcohol and Drug Abuse Patient Records regulations: The Federal rules restrict any use of the information to criminally investigate or prosecute any alcohol or drug abuse patient.[facility] HospitalIn the event this information is protected by the Federal Confidentiality of Alcohol and Drug Abuse Patient Records regulations: The Federal rules restrict any use of the information to criminally investigate or prosecute any alcohol or drug abuse patient.[facility] HospitalIn the event this information is protected by the Federal Confidentiality of Alcohol and Drug Abuse Patient Records regulations: The Federal rules restrict any use of the information to criminally investigate or prosecute any alcohol or drug abuse patient.[facility] HospitalIn the event this information is protected by the Federal Confidentiality of Alcohol and Drug Abuse Patient Records regulations: The Federal rules restrict any use of the information to criminally investigate or prosecute any alcohol or drug abuse patient.[facility] HospitalIn the event this information is protected by the Federal Confidentiality of Alcohol and Drug Abuse Patient Records regulations: The Federal rules restrict any use of the information to criminally investigate or prosecute any alcohol or drug abuse patient.[facility] HospitalIn the event this information is protected by the Federal Confidentiality of Alcohol and Drug Abuse Patient Records regulations: The Federal rules restrict any use of the information to criminally investigate or prosecute any alcohol or drug abuse patient.[facility] HospitalIn the event this information is protected by the Federal Confidentiality of Alcohol and Drug Abuse Patient Records regulations: The Federal rules restrict any use of the information to criminally investigate or prosecute any alcohol or drug abuse patient.[facility] HospitalIn the event this information is protected by the Federal Confidentiality of Alcohol and Drug Abuse Patient Records regulations: The Federal rules restrict any use of the information to criminally investigate or prosecute any alcohol or drug abuse patient.[facility] HospitalIn the event this information is protected by the Federal Confidentiality of Alcohol and Drug Abuse Patient Records regulations: The Federal rules restrict any use of the information to criminally investigate or prosecute any alcohol or drug abuse patient.[facility] HospitalIn the event this information is protected by the Federal Confidentiality of Alcohol and Drug Abuse Patient Records regulations: The Federal rules restrict any use of the information to criminally investigate or prosecute any alcohol or drug abuse patient.[facility] HospitalIn the event this information is protected by the Federal Confidentiality of Alcohol and Drug Abuse Patient Records regulations: The Federal rules restrict any use of the information to criminally investigate or prosecute any alcohol or drug abuse patient.[facility] HospitalIn the event this information is protected by the Federal Confidentiality of Alcohol and Drug Abuse Patient Records regulations: The Federal rules restrict any use of the information to criminally investigate or prosecute any alcohol or drug abuse patient.[facility] HospitalIn the event this information is protected by the Federal Confidentiality of Alcohol and Drug Abuse Patient Records regulations: The Federal rules restrict any use of the information to criminally investigate or prosecute any alcohol or drug abuse patient.[facility] HospitalIn the event this information is protected by the Federal Confidentiality of Alcohol and Drug Abuse Patient Records regulations: The Federal rules restrict any use of the information to criminally investigate or prosecute any alcohol or drug abuse patient.[facility] HospitalIn the event this information is protected by the Federal Confidentiality of Alcohol and Drug Abuse Patient Records regulations: The Federal rules restrict any use of the information to criminally investigate or prosecute any alcohol or drug abuse patient.[facility] HospitalIn the event this information is protected by the Federal Confidentiality of Alcohol and Drug Abuse Patient Records regulations: The Federal rules restrict any use of the information to criminally investigate or prosecute any alcohol or drug abuse patient.[facility] HospitalIn the event this information is protected by the Federal Confidentiality of Alcohol and Drug Abuse Patient Records regulations: The Federal rules restrict any use of the information to criminally investigate or prosecute any alcohol or drug abuse patient.[facility] HospitalIn the event this information is protected by the Federal Confidentiality of Alcohol and Drug Abuse Patient Records regulations: The Federal rules restrict any use of the information to criminally investigate or prosecute any alcohol or drug abuse patient.[facility] HospitalIn the event this information is protected by the Federal Confidentiality of Alcohol and Drug Abuse Patient Records regulations: The Federal rules restrict any use of the information to criminally investigate or prosecute any alcohol or drug abuse patient.[facility] HospitalIn the event this information is protected by the Federal Confidentiality of Alcohol and Drug Abuse Patient Records regulations: The Federal rules restrict any use of the information to criminally investigate or prosecute any alcohol or drug abuse patient.[facility] HospitalIn the event this information is protected by the Federal Confidentiality of Alcohol and Drug Abuse Patient Records regulations: The Federal rules restrict any use of the information to criminally investigate or prosecute any alcohol or drug abuse patient.[facility] HospitalIn the event this information is protected by the Federal Confidentiality of Alcohol and Drug Abuse Patient Records regulations: The Federal rules restrict any use of the information to criminally investigate or prosecute any alcohol or drug abuse patient.[facility] HospitalIn the event this information is protected by the Federal Confidentiality of Alcohol and Drug Abuse Patient Records regulations: The Federal rules restrict any use of the information to criminally investigate or prosecute any alcohol or drug abuse patient.[facility] HospitalIn the event this information is protected by the Federal Confidentiality of Alcohol and Drug Abuse Patient Records regulations: The Federal rules restrict any use of the information to criminally investigate or prosecute any alcohol or drug abuse patient.[facility] HospitalIn the event this information is protected by the Federal Confidentiality of Alcohol and Drug Abuse Patient Records regulations: The Federal rules restrict any use of the information to criminally investigate or prosecute any alcohol or drug abuse patient.[facility] HospitalIn the event this information is protected by the Federal Confidentiality of Alcohol and Drug Abuse Patient Records regulations: The Federal rules restrict any use of the information to criminally investigate or prosecute any alcohol or drug abuse patient.[facility] HospitalIn the event this information is protected by the Federal Confidentiality of Alcohol and Drug Abuse Patient Records regulations: The Federal rules restrict any use of the information to criminally investigate or prosecute any alcohol or drug abuse patient.[facility] HospitalIn the event this information is protected by the Federal Confidentiality of Alcohol and Drug Abuse Patient Records regulations: The Federal rules restrict any use of the information to criminally investigate or prosecute any alcohol or drug abuse patient.[facility] HospitalIn the event this information is protected by the Federal Confidentiality of Alcohol and Drug Abuse Patient Records regulations: The Federal rules restrict any use of the information to criminally investigate or prosecute any alcohol or drug abuse patient.[facility] HospitalIn the event this information is protected by the Federal Confidentiality of Alcohol and Drug Abuse Patient Records regulations: The Federal rules restrict any use of the information to criminally investigate or prosecute any alcohol or drug abuse patient.[facility] HospitalIn the event this information is protected by the Federal Confidentiality of Alcohol and Drug Abuse Patient Records regulations: The Federal rules restrict any use of the information to criminally investigate or prosecute any alcohol or drug abuse patient.[facility] HospitalIn the event this information is protected by the Federal Confidentiality of Alcohol and Drug Abuse Patient Records regulations: The Federal rules restrict any use of the information to criminally investigate or prosecute any alcohol or drug abuse patient.[facility] HospitalIn the event this information is protected by the Federal Confidentiality of Alcohol and Drug Abuse Patient Records regulations: The Federal rules restrict any use of the information to criminally investigate or prosecute any alcohol or drug abuse patient.[facility] HospitalIn the event this information is protected by the Federal Confidentiality of Alcohol and Drug Abuse Patient Records regulations: The Federal rules restrict any use of the information to criminally investigate or prosecute any alcohol or drug abuse patient.[facility] HospitalIn the event this information is protected by the Federal Confidentiality of Alcohol and Drug Abuse Patient Records regulations: The Federal rules restrict any use of the information to criminally investigate or prosecute any alcohol or drug abuse patient.[facility] HospitalIn the event this information is protected by the Federal Confidentiality of Alcohol and Drug Abuse Patient Records regulations: The Federal rules restrict any use of the information to criminally investigate or prosecute any alcohol or drug abuse patient.[facility] HospitalIn the event this information is protected by the Federal Confidentiality of Alcohol and Drug Abuse Patient Records regulations: The Federal rules restrict any use of the information to criminally investigate or prosecute any alcohol or drug abuse patient.[facility] HospitalIn the event this information is protected by the Federal Confidentiality of Alcohol and Drug Abuse Patient Records regulations: The Federal rules restrict any use of the information to criminally investigate or prosecute any alcohol or drug abuse patient.[facility] HospitalIn the event this information is protected by the Federal Confidentiality of Alcohol and Drug Abuse Patient Records regulations: The Federal rules restrict any use of the information to criminally investigate or prosecute any alcohol or drug abuse patient.[facility] HospitalIn the event this information is protected by the Federal Confidentiality of Alcohol and Drug Abuse Patient Records regulations: The Federal rules restrict any use of the information to criminally investigate or prosecute any alcohol or drug abuse patient.[facility] HospitalIn the event this information is protected by the Federal Confidentiality of Alcohol and Drug Abuse Patient Records regulations: The Federal rules restrict any use of the information to criminally investigate or prosecute any alcohol or drug abuse patient.[facility] HospitalIn the event this information is protected by the Federal Confidentiality of Alcohol and Drug Abuse Patient Records regulations: The Federal rules restrict any use of the information to criminally investigate or prosecute any alcohol or drug abuse patient.[facility] HospitalIn the event this information is protected by the Federal Confidentiality of Alcohol and Drug Abuse Patient Records regulations: The Federal rules restrict any use of the information to criminally investigate or prosecute any alcohol or drug abuse patient.[facility] HospitalIn the event this information is protected by the Federal Confidentiality of Alcohol and Drug Abuse Patient Records regulations: The Federal rules restrict any use of the information to criminally investigate or prosecute any alcohol or drug abuse patient.[facility] HospitalIn the event this information is protected by the Federal Confidentiality of Alcohol and Drug Abuse Patient Records regulations: The Federal rules restrict any use of the information to criminally investigate or prosecute any alcohol or drug abuse patient.[facility] HospitalIn the event this information is protected by the Federal Confidentiality of Alcohol and Drug Abuse Patient Records regulations: The Federal rules restrict any use of the information to criminally investigate or prosecute any alcohol or drug abuse patient.[facility] HospitalIn the event this information is protected by the Federal Confidentiality of Alcohol and Drug Abuse Patient Records regulations: The Federal rules restrict any use of the information to criminally investigate or prosecute any alcohol or drug abuse patient.[facility] HospitalIn the event this information is protected by the Federal Confidentiality of Alcohol and Drug Abuse Patient Records regulations: The Federal rules restrict any use of the information to criminally investigate or prosecute any alcohol or drug abuse patient.[facility] HospitalIn the event this information is protected by the Federal Confidentiality of Alcohol and Drug Abuse Patient Records regulations: The Federal rules restrict any use of the information to criminally investigate or prosecute any alcohol or drug abuse patient.[facility] HospitalIn the event this information is protected by the Federal Confidentiality of Alcohol and Drug Abuse Patient Records regulations: The Federal rules restrict any use of the information to criminally investigate or prosecute any alcohol or drug abuse patient.[facility] HospitalIn the event this information is protected by the Federal Confidentiality of Alcohol and Drug Abuse Patient Records regulations: The Federal rules restrict any use of the information to criminally investigate or prosecute any alcohol or drug abuse patient.[facility] HospitalIn the event this information is protected by the Federal Confidentiality of Alcohol and Drug Abuse Patient Records regulations: The Federal rules restrict any use of the information to criminally investigate or prosecute any alcohol or drug abuse patient.[facility] HospitalIn the event this information is protected by the Federal Confidentiality of Alcohol and Drug Abuse Patient Records regulations: The Federal rules restrict any use of the information to criminally investigate or prosecute any alcohol or drug abuse patient.[facility] HospitalIn the event this information is protected by the Federal Confidentiality of Alcohol and Drug Abuse Patient Records regulations: The Federal rules restrict any use of the information to criminally investigate or prosecute any alcohol or drug abuse patient.[facility] HospitalIn the event this information is protected by the Federal Confidentiality of Alcohol and Drug Abuse Patient Records regulations: The Federal rules restrict any use of the information to criminally investigate or prosecute any alcohol or drug abuse patient.[facility] HospitalIn the event this information is protected by the Federal Confidentiality of Alcohol and Drug Abuse Patient Records regulations: The Federal rules restrict any use of the information to criminally investigate or prosecute any alcohol or drug abuse patient.[facility] HospitalIn the event this information is protected by the Federal Confidentiality of Alcohol and Drug Abuse Patient Records regulations: The Federal rules restrict any use of the information to criminally investigate or prosecute any alcohol or drug abuse patient.[facility] HospitalIn the event this information is protected by the Federal Confidentiality of Alcohol and Drug Abuse Patient Records regulations: The Federal rules restrict any use of the information to criminally investigate or prosecute any alcohol or drug abuse patient.[facility] HospitalIn the event this information is protected by the Federal Confidentiality of Alcohol and Drug Abuse Patient Records regulations: The Federal rules restrict any use of the information to criminally investigate or prosecute any alcohol or drug abuse patient.[facility] HospitalIn the event this information is protected by the Federal Confidentiality of Alcohol and Drug Abuse Patient Records regulations: The Federal rules restrict any use of the information to criminally investigate or prosecute any alcohol or drug abuse patient.[facility] HospitalIn the event this information is protected by the Federal Confidentiality of Alcohol and Drug Abuse Patient Records regulations: The Federal rules restrict any use of the information to criminally investigate or prosecute any alcohol or drug abuse patient.[facility] HospitalIn the event this information is protected by the Federal Confidentiality of Alcohol and Drug Abuse Patient Records regulations: The Federal rules restrict any use of the information to criminally investigate or prosecute any alcohol or drug abuse patient.[facility] HospitalIn the event this information is protected by the Federal Confidentiality of Alcohol and Drug Abuse Patient Records regulations: The Federal rules restrict any use of the information to criminally investigate or prosecute any alcohol or drug abuse patient.[facility] HospitalIn the event this information is protected by the Federal Confidentiality of Alcohol and Drug Abuse Patient Records regulations: The Federal rules restrict any use of the information to criminally investigate or prosecute any alcohol or drug abuse patient.[facility] HospitalIn the event this information is protected by the Federal Confidentiality of Alcohol and Drug Abuse Patient Records regulations: The Federal rules restrict any use of the information to criminally investigate or prosecute any alcohol or drug abuse patient.[facility] HospitalIn the event this information is protected by the Federal Confidentiality of Alcohol and Drug Abuse Patient Records regulations: The Federal rules restrict any use of the information to criminally investigate or prosecute any alcohol or drug abuse patient.[facility] HospitalIn the event this information is protected by the Federal Confidentiality of Alcohol and Drug Abuse Patient Records regulations: The Federal rules restrict any use of the information to criminally investigate or prosecute any alcohol or drug abuse patient.[facility] HospitalIn the event this information is protected by the Federal Confidentiality of Alcohol and Drug Abuse Patient Records regulations: The Federal rules restrict any use of the information to criminally investigate or prosecute any alcohol or drug abuse patient.[facility] HospitalIn the event this information is protected by the Federal Confidentiality of Alcohol and Drug Abuse Patient Records regulations: The Federal rules restrict any use of the information to criminally investigate or prosecute any alcohol or drug abuse patient.[facility] HospitalIn the event this information is protected by the Federal Confidentiality of Alcohol and Drug Abuse Patient Records regulations: The Federal rules restrict any use of the information to criminally investigate or prosecute any alcohol or drug abuse patient.[facility] HospitalIn the event this information is protected by the Federal Confidentiality of Alcohol and Drug Abuse Patient Records regulations: The Federal rules restrict any use of the information to criminally investigate or prosecute any alcohol or drug abuse patient.[facility] HospitalIn the event this information is protected by the Federal Confidentiality of Alcohol and Drug Abuse Patient Records regulations: The Federal rules restrict any use of the information to criminally investigate or prosecute any alcohol or drug abuse patient.[facility] HospitalIn the event this information is protected by the Federal Confidentiality of Alcohol and Drug Abuse Patient Records regulations: The Federal rules restrict any use of the information to criminally investigate or prosecute any alcohol or drug abuse patient.[facility] HospitalIn the event this information is protected by the Federal Confidentiality of Alcohol and Drug Abuse Patient Records regulations: The Federal rules restrict any use of the information to criminally investigate or prosecute any alcohol or drug abuse patient.[facility] HospitalIn the event this information is protected by the Federal Confidentiality of Alcohol and Drug Abuse Patient Records regulations: The Federal rules restrict any use of the information to criminally investigate or prosecute any alcohol or drug abuse patient.[facility] HospitalIn the event this information is protected by the Federal Confidentiality of Alcohol and Drug Abuse Patient Records regulations: The Federal rules restrict any use of the information to criminally investigate or prosecute any alcohol or drug abuse patient.[facility] HospitalIn the event this information is protected by the Federal Confidentiality of Alcohol and Drug Abuse Patient Records regulations: The Federal rules restrict any use of the information to criminally investigate or prosecute any alcohol or drug abuse patient.[facility] HospitalIn the event this information is protected by the Federal Confidentiality of Alcohol and Drug Abuse Patient Records regulations: The Federal rules restrict any use of the information to criminally investigate or prosecute any alcohol or drug abuse patient.[facility] HospitalIn the event this information is protected by the Federal Confidentiality of Alcohol and Drug Abuse Patient Records regulations: The Federal rules restrict any use of the information to criminally investigate or prosecute any alcohol or drug abuse patient.[facility] HospitalIn the event this information is protected by the Federal Confidentiality of Alcohol and Drug Abuse Patient Records regulations: The Federal rules restrict any use of the information to criminally investigate or prosecute any alcohol or drug abuse patient.[facility] HospitalIn the event this information is protected by the Federal Confidentiality of Alcohol and Drug Abuse Patient Records regulations: The Federal rules restrict any use of the information to criminally investigate or prosecute any alcohol or drug abuse patient.[facility] HospitalIn the event this information is protected by the Federal Confidentiality of Alcohol and Drug Abuse Patient Records regulations: The Federal rules restrict any use of the information to criminally investigate or prosecute any alcohol or drug abuse patient.[facility] HospitalIn the event this information is protected by the Federal Confidentiality of Alcohol and Drug Abuse Patient Records regulations: The Federal rules restrict any use of the information to criminally investigate or prosecute any alcohol or drug abuse patient.[facility] HospitalIn the event this information is protected by the Federal Confidentiality of Alcohol and Drug Abuse Patient Records regulations: The Federal rules restrict any use of the information to criminally investigate or prosecute any alcohol or drug abuse patient.[facility] HospitalIn the event this information is protected by the Federal Confidentiality of Alcohol and Drug Abuse Patient Records regulations: The Federal rules restrict any use of the information to criminally investigate or prosecute any alcohol or drug abuse patient.[facility] HospitalIn the event this information is protected by the Federal Confidentiality of Alcohol and Drug Abuse Patient Records regulations: The Federal rules restrict any use of the information to criminally investigate or prosecute any alcohol or drug abuse patient.[facility] HospitalIn the event this information is protected by the Federal Confidentiality of Alcohol and Drug Abuse Patient Records regulations: The Federal rules restrict any use of the information to criminally investigate or prosecute any alcohol or drug abuse patient.[facility] HospitalIn the event this information is protected by the Federal Confidentiality of Alcohol and Drug Abuse Patient Records regulations: The Federal rules restrict any use of the information to criminally investigate or prosecute any alcohol or drug abuse patient.[facility] HospitalIn the event this information is protected by the Federal Confidentiality of Alcohol and Drug Abuse Patient Records regulations: The Federal rules restrict any use of the information to criminally investigate or prosecute any alcohol or drug abuse patient.[facility] HospitalIn the event this information is protected by the Federal Confidentiality of Alcohol and Drug Abuse Patient Records regulations: The Federal rules restrict any use of the information to criminally investigate or prosecute any alcohol or drug abuse patient.[facility] HospitalIn the event this information is protected by the Federal Confidentiality of Alcohol and Drug Abuse Patient Records regulations: The Federal rules restrict any use of the information to criminally investigate or prosecute any alcohol or drug abuse patient.[facility] HospitalIn the event this information is protected by the Federal Confidentiality of Alcohol and Drug Abuse Patient Records regulations: The Federal rules restrict any use of the information to criminally investigate or prosecute any alcohol or drug abuse patient.[facility] HospitalIn the event this information is protected by the Federal Confidentiality of Alcohol and Drug Abuse Patient Records regulations: The Federal rules restrict any use of the information to criminally investigate or prosecute any alcohol or drug abuse patient.[facility] HospitalIn the event this information is protected by the Federal Confidentiality of Alcohol and Drug Abuse Patient Records regulations: The Federal rules restrict any use of the information to criminally investigate or prosecute any alcohol or drug abuse patient.[facility] HospitalIn the event this information is protected by the Federal Confidentiality of Alcohol and Drug Abuse Patient Records regulations: The Federal rules restrict any use of the information to criminally investigate or prosecute any alcohol or drug abuse patient.[facility] HospitalIn the event this information is protected by the Federal Confidentiality of Alcohol and Drug Abuse Patient Records regulations: The Federal rules restrict any use of the information to criminally investigate or prosecute any alcohol or drug abuse patient.[facility] HospitalIn the event this information is protected by the Federal Confidentiality of Alcohol and Drug Abuse Patient Records regulations: The Federal rules restrict any use of the information to criminally investigate or prosecute any alcohol or drug abuse patient.[facility] Reason for Visit (unrecogniz ed section and content) Reason Comments Physical Therapy Specialty Diagnoses / Procedures Referred By Contac t Referred To Contact [facility] Diagnoses Acute pain of right shoulder Procedures CONSULT TO PHYSICAL THERAPY PHYSICAL THERAPY EVALUATION HIGH COMPLEX 45 MINS Dominik Kelley APRN.CIRCUIT COURT CLERK [address] [place] [address] [facility] [place] [address] [place] [address] Referral ID Status Reason Start Date Expiration Date Visits Requested Visits Authorized [id number] Authorized Auto-Generat ed Referral 02/07/2024 10/08/2024 20 20 Reason Comments Physical Therapy PT Progress Note Reason Onset Date Comments Refill Request 01/05/2022 Reason Comments Refill Request Reason Comments Insulin Dependent Diabetes Mellitus Reason Onset Date Comments Refill Request 04/27/2022 Reason Comments Physical Reason Comments Results Reason Comments Insulin Dependent Diabetes Mellitus Reason Comments Imm/Inj Reason Comments Immunizations Reason Comments Mass Growth on left butto ck, bleeding and painful. Keeps getting bigger x 4 days Reason Comments Recheck Reason Comments Recheck abcess Reason Comments Insurance Authorization [employer] Reason Comments F/U 6 months Reason Comments Follow Up Reason Onset Date Comments Refill Request 03/14/2023 Reason Onset Date Comments Refill Request 03/27/2023 Reason Comments Recheck 4 month Reason Comments Follow Up Cyst on buttocks Reason Onset Date Comments Refill Request 06/04/2023 Reason Onset Date Comments Refill Request 08/23/2023 Reason Comments PA--MOUNJARO 2.5 MG Specialty Diagnoses / Procedures Referred By Carlos cortes Referred To Contact Radiology Diagnoses Right foot pain Procedures XR foot right 3+ views Stanton Peters DO [address] [facility] [place] [address] [place] [address] Referral ID Status Reason Start Date Expiration Date Visits Requested Visits Authorized [id number] Authorized Perform Procedure 10/27/2023 10/26/2024 1 1 Reason Comments PA--FREESTYLE EVERT 3 SENSOR (RENEWAL) Reason Comments Physical Reason Comments Med Change Request Reason Comments Results Appointment Reason Onset Date Comments Refill Request 01/23/2024 Specialty Diagnoses / Procedures Referred By Carlos cortes Referred To Contact Diagnoses Multiple thyroid nodules Procedures CONSULT TO ENDOCRINE SURGERY OFFICE/OUTPATIENT [facility] 60 MINUTES Torres Monaco APRN.CIRCUIT COURT CLERK [address] [address] Referral ID Status Reason Start Date Expiration Date V isits Requested Visits Authorized [id number] Closed PCP Requested Referral 01/24/2024 01/23/2025 1 1 Reason Comments Results Afirma 01/31/24 Reason Onset Date Comments Refill Request 02/23/2024 Reason Comments Outside Lab Results Afirma Results Reason Comments Procedure Reason Comments Outside Procedure Reason Onset Date Comments Refill Request 05/13/2024 Reason Comments Nurse Triage Call Reason Comments Arm Pain Reason Comments Arm Pain Pain (Shoulder Pain) Reason Comments 6 Month Exam Reason Comments PT Eval Reason Onset Date Comments Refill Request 06/16/2024 Reason Comments Radio Gen RMP Reason Onset Date Comments Refill Request 08/17/2024 Reason Comments PT Discharge Physical Therapy Specialty Diagnoses / Procedures Referred By Contac t Referred To Contact PHYSICAL THERAPY Diagnoses Acute pain of right shoulder Procedures CONSULT TO PHYSICAL THERAPY PHYSICAL THERAPY EVALUATION HIGH COMPLEX 45 MINS Dominik Kelley APRN.CIRCUIT COURT CLERK [address] [place] [address] Pt [facility] [address] [place] [address] Reason Comments Radiology US Specialty Diagnoses / Procedures Referred By Contac t Referred To Contact [facility] Diagnoses Elevated alkaline phosphatase level Procedures US ABD RIGHT UPPER QUADRANT US ABDOMINAL REAL TIME W/IMAGE LIMITED Humberto Jackson MD [address] [place] [id number] [place] [address] Referral ID Status Reason Start Date Expiration Date V isits Requested Visits Authorized [id number] Closed Auto-Generate d Referral 10/17/2024 11/16/2025 1 1 Reason Comments Results Reason Onset Date Comments Refill Request 11/18/2024 Reason Comments Pain Right nipple pain Reason Comments Radiology US Specialty Diagnoses / Procedures Referred By Contac t Referred To Contact [facility] Diagnoses Subareolar mass of right breast Procedures US BREAST LTD RIGHT US BREAST UNI REAL TIME WITH IMAGE LIMITED Humberto Jackson MD [address] [place] [address] Phone: tel: fax: [facility] [address] [place] [address] Referral ID Status Reason Start Date Expiration Date V isits Requested Visits Authorized [id number] Closed Auto-Generate d Referral 11/22/2024 12/22/2025 1 1 Reason Comments Radiology MRI Specialty Diagnoses / Procedures Referred By Contac t Referred To Contact [facility] Diagnoses Gynecomastia, male Low testosterone in male Elevated prolactin level Procedures MRI BRAIN WO/W IVCON MRI BRAIN BRAIN STEM W/O W/[place] [address] [place] [address] Phone: tel: fax: [place] [address] Referral ID Status Reason Start Date Expiration Date V isits Requested Visits Authorized [id number] Closed Auto-Generate d Referral 11/26/2024 12/26/2025 1 1 Reason Comments Triage WQ Reason Comments Follow Up Reason Comments Appointment Reason Comments New Patient Reason Onset Date Comments Refill Request 01/10/2025 Reason Comments Consult Gerd Reason Comments Patient Update Bariatric Benefits I nvestigation Reason Comments New Pain Specialty Diagnoses / Procedures Referred By Contac t Referred To Contact Orthopedics Diagnoses Adhesive capsulitis of right shoulder Procedures CONSULT TO ORTHOPAEDICS OFFICE/OUTPATIENT NEW HIGH MDM 60 MINUTES [place] Suárez [place] [address] [place] [address] Phone: tel: fax: Referral ID Status Reason Start Date Expiration Date V isits Requested Visits Authorized [id number] Closed PCP Requested Referral 01/10/2025 01/10/2026 1 1 Reason Comments Pituitary Problem Specialty Diagnoses / Procedures Referred By Contac t Referred To Contact Neurosurgery Diagnoses Gynecomastia Elevated prolactin level Pituitary adenoma (HCC) Procedures CONSULT TO NEUROSURGERY OFFICE/OUTPATIENT NEW HIGH MDM 60 MINUTES Humberto Jackson MD [address] [place] [address] Phone: tel: fax: Referral ID Status Reason Start Date Expiration Date V isits Requested Visits Authorized [id number] Closed PCP Requested Referral 12/20/2024 12/20/2025 1 1 Reason Comments Dizziness X 1 week Reason Onset Date Comments Results 03/07/2025 Reason Comments low hgb Low Hgb. SOB easy. E asily fatigued. PCP wants colonoscopy Specialty Diagnoses / Procedures Referred By Carlos t Referred To Contact General Surgery Diagnoses Anemia, unspecified type Procedures CONSULT TO GENERAL SURGERY OFFICE/OUTPATIENT [facility] 60 MINUTES Kenyatta Castaneda PA-C [address] [place] [address] Phone: tel: fax: Referral ID Status Reason Start Date Expiration Date V isits Requested Visits Authorized [id number] Closed PCP Requested Referral 03/07/2025 03/07/2026 1 1 Reason Comments Results, Lab Care Teams (unrecognized sec tion and content) Pattern Technician Relationship Specialty Start Date End Date Humberto Jackson MD [address] [place] [address] PCP - General Family Practice 05/06/14 Pattern Technician Relationship Specialty Start Date End Date Humberto Jackson MD [address] [place] [address] PCP - General Family Practice 05/06/14 Pattern Technician Relationship Specialty Start Date End Date Humberto Jackson MD [address] [place] [address] PCP - General Family Practice 05/06/14 Pattern Technician Relationship Specialty Start Date End Date Humberto Jackson MD [address] [place] [address] PCP - General Family Practice 05/06/14 Pattern Technician Relationship Specialty Start Date End Date Humberto Jackson MD [address] [place] [address] PCP - General Family Practice 05/06/14 Pattern Technician Relationship Specialty Start Date End Date Humberto Jackson MD [address] [place] [address] PCP - General Family Practice 05/06/14 Pattern Technician Relationship Specialty Start Date End Date Humberto Jackson MD [address] [place] [address] PCP - General Family Practice 05/06/14 Pattern Technician Relationship Specialty Start Date End Date Humberto Jackson MD [facility] [place] [address] PCP - General Family Practice 05/06/14 Pattern Technician Relationship Specialty Start Date End Date Humberto Jackson MD [address] [place] [address], [place] [address] PCP - General Family Practice 05/06/14 Pattern Technician Relationship Specialty Start Date End Date Humberto Jackson MD [address] [place] [address], [place] [address] PCP - General Family Practice 05/06/14 Pattern Technician Relationship Specialty Start Date End Date Humberto Jackson MD [address] [place] [address] [place] [address] PCP - General Family Practice 05/06/14 Pattern Technician Relationship Specialty Start Date End Date Humberto Jackson MD [address] [place] [address] [place] [address] PCP - General Family Medicine 05/06/14 Pattern Technician Relationship Specialty Start Date End Date Humberto Jackson MD [address] [place] [address] [place] [address] PCP - General Family Medicine 05/06/14 Pattern Technician Relationship Specialty Start Date End Date Humberto Jackson MD [address] [place] [address], [place] [address] PCP - General Family Medicine 05/06/14 Pattern Technician Relationship Specialty Start Date End Date Humberto Jackson MD [address] [place] [address] [place] [address] PCP - General Family Medicine 05/06/14 Pattern Technician Relationship Specialty Start Date End Date Humberto Jackson MD [address] [facility] [place] [address] PCP - General Family Medicine 05/06/14 Pattern Technician Relationship Specialty Start Date End Date Humberto Jackson MD [address] [facility] [place] [address] PCP - General Family Medicine 05/06/14 Pattern Technician Relationship Specialty Start Date End Date Humberto Jackson MD [address] [facility] [place] [address] PCP - General Family Medicine 05/06/14 Pattern Technician Relationship Specialty Start Date End Date Humberto Jackson MD [address] [facility] [place] [address] PCP - General Family Medicine 05/06/14 Pattern Technician Relationship Specialty Start Date End Date Humberto Jackson MD [address] [facility] [place] [address] PCP - General Family Medicine 05/06/14 Pattern Technician Relationship Specialty Start Date End Date Humberto Jackson MD [address] [facility] [place] [address] PCP - General Family Medicine 05/06/14 Pattern Technician Relationship Specialty Start Date End Date Humberto Jackson MD [address] [facility] [place] [address] PCP - General Family Medicine 05/06/14 Team Status: Active Member Role Status Dates Dr. Humberto Jackson MD Family Provider Active Dr. Humberto Jackson MD Primary Care Provider Active Team Status: Active Member Role Status Dates Dr. Humberto Jackson MD Primary Care Provider Active Dr. Macey Merchant DO Emergency Provider Active Dr. Prince Villanueva MD Attending Provider, Other Provi tobi Active Team Status: Active Member Role Status Dates Dr. Humberto Jackson MD Primary Care Provider Active Dr. Remus Ungur , DO Emergency Provider Active Dr. Prince Villanueva MD Attending Provider Active Team Status: Active Member Role Status Dates Dr. Humberto Jackson MD Primary Care Provider Active Dr. Macey Merchant , DO Emergency Provider Active Dr. Prince Villanueva MD Admit Provider, A ttending Provider, Other Provider Active Team Status: Inactive Member Role Status Dates Dr. Humberto Jackson MD Primary Care Provider Active Dr. Macey Merchant , DO Emergency Provider Active Dr. Prince Villanueva MD Admit Provider, Attending Provi tobi Active Pattern Technician Relationship Specialty Start Date End Date Humberto Jackson MD [address] [place] [address] PCP - General Family Medicine 05/06/14 Pattern Technician Relationship Specialty Start Date End Date Humberto Jackson MD [address] [place] [address] PCP - General Family Medicine 05/06/14 Pattern Technician Relationship Specialty Start Date End Date Humberto Jackson MD [address] [place] [address] PCP - General Family Medicine 05/06/14 Pattern Technician Relationship Specialty Start Date End Date Humberto Jackson MD [address] [place] [address] PCP - General Family Medicine 05/06/14 Pattern Technician Relationship Specialty Start Date End Date Humberto Jackson MD [address] [place] [address] PCP - General Family Medicine 05/06/14 Pattern Technician Relationship Specialty Start Date End Date Humberto Jackson MD [address] [place] [address] PCP - General Family Medicine 05/06/14 Pattern Technician Relationship Specialty Start Date End Date Humberto Jackson MD [address] [place] [address] PCP - General Family Medicine 05/06/14 Pattern Technician Relationship Specialty Start Date End Date Humberto Jackson MD [address] [place] [id number] PCP - General 11/28/11 Pattern Technician Relationship Specialty Start Date End Date Humberto Jackson MD [address] [place] [address] PCP - General Family Medicine 05/06/14 Pattern Technician Relationship Specialty Start Date End Date Humberto Jackson MD [address] [place] [address] PCP - General Family Medicine 05/06/14 Efren Powell, RN [address] [place] [address] Primary Care Job Estimator Internal Medicine 09/29/23 10/29/23 Pattern Technician Relationship Specialty Start Date End Date Humberto Jackson MD [address] [place] [address] PCP - General Family Medicine 05/06/14 Pattern Technician Relationship Specialty Start Date End Date Humberto Jackson MD [address] [place] [address] PCP - General Family Medicine 05/06/14 Pattern Technician Relationship Specialty Start Date End Date Humberto Jackson MD [address] [place] [address] PCP - General Family Medicine 05/06/14 Pattern Technician Relationship Specialty Start Date End Date Humberto Jackson MD [address] [place] [address] PCP - General Family Medicine 05/06/14 Pattern Technician Relationship Specialty Start Date End Date Humberto Jackson MD [address] [place] [address] PCP - General Family Medicine 05/06/14 Pattern Technician Relationship Specialty Start Date End Date Humberto Jackson MD [address] [place] [address] PCP - General Family Medicine 05/06/14 Pattern Technician Relationship Specialty Start Date End Date Humberto Jackson MD [address] [place] [address] PCP - General Family Medicine 05/06/14 Pattern Technician Relationship Specialty Start Date End Date Humberto Jackson MD [address] [place] [address] PCP - General Family Medicine 05/06/14 Pattern Technician Relationship Specialty Start Date End Date Humberto Jackson MD [address] [place] [address] PCP - General Family Medicine 05/06/14 Pattern Technician Relationship Specialty Start Date End Date Humberto Jackson MD [address] [place] [address] PCP - General Family Medicine 05/06/14 Pattern Technician Relationship Specialty Start Date End Date Humberto Jackson MD [address] [place] [address] PCP - General Family Medicine 05/06/14 Pattern Technician Relationship Specialty Start Date End Date Humberto Jackson MD [address] [place] [address] PCP - General Family Medicine 05/06/14 Pattern Technician Relationship Specialty Start Date End Date Humberto Jackson MD [address] [place] [address] PCP - General Family Medicine 05/06/14 Pattern Technician Relationship Specialty Start Date End Date Humberto Jackson MD [address] [place] [address] PCP - General Family Medicine 05/06/14 Pattern Technician Relationship Specialty Start Date End Date Humberto Jackson MD [address] [place] [address] PCP - General Family Medicine 05/06/14 Pattern Technician Relationship Specialty Start Date End Date Humberto Jackson MD [address] [place] [address] PCP - General Family Medicine 05/06/14 Pattern Technician Relationship Specialty Start Date End Date Humberto Jackson MD [address] [place] [address] PCP - General Family Medicine 05/06/14 Pattern Technician Relationship Specialty Start Date End Date Humberto Jackson MD [address] [place] [address] PCP - General Family Medicine 05/06/14 Pattern Technician Relationship Specialty Start Date End Date Humberto Jackson MD [address] [place] [address] PCP - General Family Medicine 05/06/14 Pattern Technician Relationship Specialty Start Date End Date Humberto Jackson MD [address] [place] [address] PCP - General Family Medicine 05/06/14 Dominik Kelley, GHULAM.CIRCUIT COURT CLERK [address] [place] [address] Government Teacher Family Medicine 09/14/24 Kenyatta Castaneda PA-C [address] [place] [address] [facility] 09/14/24 Pattern Technician Relationship Specialty Start Date End Date Humberto Jackson MD [address] [place] [address] PCP - General Family Medicine 05/06/14 Dominik Kelley, TAX ACCOUNTANT.CIRCUIT COURT CLERK [address] [place] [address] Government Teacher Family Medicine 09/14/24 Kenyatta Castaneda PA-C [address] [place] [address] [facility] 09/14/24 Pattern Technician Relationship Specialty Start Date End Date Humberto Jackson MD [address] [place] [address] PCP - General Family Medicine 05/06/14 Dominik Kelley, TAX ACCOUNTANT.CIRCUIT COURT CLERK [address] [place] [address] Government Teacher Family Medicine 09/14/24 Kenyatta Castaneda PA-C [address] [place] [address] Government Teacher Family Medicine 09/14/24 Pattern Technician Relationship Specialty Start Date End Date Humberto Jackson MD [address] [place] [address] PCP - General Family Medicine 05/06/[address] CLERK [address] [place] [address] Government Teacher Family Medicine 09/14/24 Kenyatta Castaneda PA-C [address] [place] [address] Government Teacher Family Medicine 09/14/24 Pattern Technician Relationship Specialty Start Date End Date Humberto Jackson MD [address] [place] [address] PCP - General Family Medicine 05/06/14 [address]ik Kelley [address]CIRCUIT COURT CLERK [address] [place] [address] Government Teacher Family Medicine 09/14/24 Kenyatta Castaneda PA-C [address] [place] [address] Government Teacher Family Medicine 09/14/24 Pattern Technician Relationship Specialty Start Date End Date Humberto Jackson MD [address] [place] [address] PCP - General Family Medicine 05/06/14 [address]ik Kelley APRN[address]CIRCUIT [address] CLERK [facility] [place] [address] Government Teacher Family Medicine 09/14/24 Kenyatta Castaneda PA-C [address] [place] [address] Government Teacher Family Medicine 09/14/24 Pattern Technician Relationship Specialty Start Date End Date Humberto Jackson MD [address] [place] [address] PCP - General Family Medicine 05/06/[address]CIRCUIT [address] CLERK [address] [place] [address] Government Teacher Family Medicine 09/14/24 Kenyatta Castaneda PA-C [address] [place] [address] Government Teacher Family Medicine 09/14/24 Pattern Technician Relationship Specialty Start Date End Date Humberto Jackson MD [address] [place] [address] PCP - General Family Medicine 05/06/[address]CIRCUIT [address] CLERK [address] [place] [address] Government Teacher Family Medicine 09/14/24 Kenyatta Castaneda PA-C [address] [place] [address] Government Teacher Family Medicine 09/14/24 Pattern Technician Relationship Specialty Start Date End Date Humberto Jackson MD [address] [place] [address] PCP - General Family Medicine 05/06/14 [address]CIRCUIT [address] CLERK [address] [facility] [place] [place] [address] Government Teacher Family Medicine 09/14/24 Kenyatta Castaneda PA-C [address] [facility] [place] [address] Government Teacher Family Medicine 09/14/24 Pattern Technician Relationship Specialty Start Date End Date Humberto Jackson MD [address] [facility] [place] [address] PCP - General Family Medicine 05/06/14 [address] Kelley [address]CIRCUIT COURT CLERK [address] [place] [address] Government Teacher Family Medicine 09/14/24 Kenyatta Castaneda PA-C [address] [facility] [place] [address] Government Teacher Family Medicine 09/14/24 Pattern Technician Relationship Specialty Start Date End Date Hubmerto Jackson MD [address] [place] [address] PCP - General Family Medicine 05/06/14 Dominik Kelley, GHULAM.CIRCUIT COURT CLERK [address] [place] [address] Government Teacher Family Medicine 09/14/24 Kenyatta Castaneda PA-C [address] [facility] [place] [address] Government Teacher Family Medicine 09/14/24 Pattern Technician Relationship Specialty Start Date End Date Humberto Jackson MD [address] [place] [address] PCP - General Family Medicine 05/06/14 Dominik Kelley, GHULAM.CIRCUIT COURT CLERK [address] [place] [address] Government Teacher Family Medicine 09/14/24 Kenyatta Castaneda PA-C [address] [place] [address] Government Teacher Family Medicine 09/14/24 Pattern Technician Relationship Specialty Start Date End Date Humberto Jackson MD [address] [place] [address] PCP - General Family Medicine 05/06/14 Dominik Kelley, TAX ACCOUNTANT.CIRCUIT COURT CLERK [address] [place] [address] Government Teacher Family Medicine 09/14/24 Kenyatta Castaneda PA-C [address] [place] [address] Government Teacher Family Medicine 09/14/24 Pattern Technician Relationship Specialty Start Date End Date Humberto Jackson MD [address] [place] [address] PCP - General Family Medicine 05/06/14 Dominik Kelley, TAX ACCOUNTANT.CIRCUIT COURT CLERK [address] [place] [address] Government Teacher Family Medicine 09/14/24 Kenyatta Castaneda PA-C [address] [place] [address] Government Teacher Family Medicine 09/14/24 Pattern Technician Relationship Specialty Start Date End Date Humberto Jackson MD [address] [place] [address] PCP - General Family Medicine 05/06/14 Dominik Kelley APRN.CIRCUIT COURT CLERK [address] [place] [address] Government Teacher Family Medicine 09/14/24 Kenyatta Castaneda PA-C [address] [place] [address] Government Teacher Family Medicine 09/14/24 Pattern Technician Relationship Specialty Start Date End Date Humberto Jackson MD [address] [place] [address] PCP - General Family Medicine 05/06/14 Dominik Kelley, GHULAM.CIRCUIT COURT CLERK [address] [place] [address] Government Teacher Family Medicine 09/14/24 Kenyatta Castaneda PA-C [address] [place] [address] Government Teacher Family Medicine 09/14/24 Pattern Technician Relationship Specialty Start Date End Date Humberto Jackson MD [address] [place] [address] PCP - General Family Medicine 05/06/14 Dominik Kelley APRN.CIRCUIT COURT CLERK [address] [place] [address] Government Teacher Family Medicine 09/14/24 Kenyatta Castaneda PA-C [address] [place] [address] Government Teacher Family Medicine 09/14/24 Pattern Technician Relationship Specialty Start Date End Date Humberto Jackson MD [address] [place] [address] PCP - General Family Medicine 05/06/14 Dominik Kelley APRN.CIRCUIT COURT CLERK [address] [place] [address] Government Teacher Family Medicine 09/14/24 Kenyatta Castaneda PA-C [address] [place] [address] Government Teacher Family Medicine 09/14/24 Pattern Technician Relationship Specialty Start Date End Date Humberto Jackson MD [address] [place] [address] PCP - General Family Medicine 05/06/14 Dominik Kelley APRN.CIRCUIT COURT CLERK [address] [place] [address] Government Teacher Family Medicine 09/14/24 Kenyatta Castaneda PA-C [address] [place] [address] Government Teacher Family Medicine 09/14/24 Pattern Technician Relationship Specialty Start Date End Date Humberto Jackson MD [address] [place] [address] PCP - General Family Medicine 05/06/14 Dominik Kelley, GHULAM.CIRCUIT COURT CLERK [address] [place] [address] Government Teacher Family [facility] 09/14/24 Kenyatta Castaneda PA-C [address] [place] [address] [facility] 09/14/24 Pattern Technician Relationship Specialty Start Date End Date Humberto Jackson MD [address] [place] [address] PCP - General Family Medicine 05/06/14 Dominik Kelley APRN.CIRCUIT COURT CLERK [address] [place] [address] [facility] 09/14/24 Kenyatta Castaneda PA-C [address] [place] [address] [facility] 09/14/24 Pattern Technician Relationship Specialty Start Date End Date Humberto Jackson MD [address] [place] [address] PCP - General Family Medicine 05/06/14 Dominik Kelley APRN.CIRCUIT COURT CLERK [address] [place] [address] Government Teacher Family Medicine 09/14/24 Kenyatta Castaneda PA-C [address] [place] [address] [facility] Medicine 09/14/24 Pattern Technician Relationship Specialty Start Date End Date Humberto Jackson MD [address] [place] [address] PCP - General Family Medicine 05/06/14 Dominik Kelley APRN.CIRCUIT COURT CLERK [facility] [place] [address] Government Teacher Family Medicine 09/14/24 Kenyatta Castaneda PA-C [address] [place] [address] Government Teacher Family Medicine 09/14/24 Pattern Technician Relationship Specialty Start Date End Date Humberto Jackson MD [address] [place] [address] PCP - General Family Medicine 01/13/25 Dominik Kelley APRN.CIRCUIT COURT CLERK [address] [place] [address] Government Teacher Family Medicine 09/14/24 Kenyatta Castaneda PA-C [address] [place] [address] Government Teacher Family Medicine 09/14/24 Pattern Technician Relationship Specialty Start Date End Date Humberto Jackson MD [address] [place] [address] PCP - General Family Medicine 01/13/25 Dominik Kelley APRN.CIRCUIT COURT CLERK [address] [place] [address] Government Teacher Family Medicine 09/14/[address] PA-C [facility] [place] [address] Government Teacher Family Medicine 09/14/24 Pattern Technician Relationship Specialty Start Date End Date Humberto Jackson MD [address] [place] [address] PCP - General Family Medicine 01/13/25 Dominik Kelley [address]CIRCUIT COURT CLERK [address] [place] [address] Government Teacher Family Medicine 09/14/24 Kenyatta Castaneda PA-C [address] [place] [address] Government Teacher [facility] 09/14/24 Pattern Technician Relationship Specialty Start Date End Date Humberto Jackson MD [address] [place] [address] PCP - General Family Medicine 01/13/25 Dominik Kelley APRN.CIRCUIT COURT CLERK [address] [place] [address] Government Teacher Family Medicine 09/14/24 Kenyatta Castaneda PA-C [address] [place] [address] [facility] 09/14/24 Pattern Technician Relationship Specialty Start Date End Date Humberto Jackson MD [address] [place] [address] PCP - General Family Medicine 01/13/25 Dominik Kelley [address]N.CIRCUIT COURT CLERK [address] [place] [address] Government Teacher Family Medicine 09/14/24 Kenyatta Castaneda PA-C [address] [place] [address] Government Teacher Family Medicine 09/14/24 Pattern Technician Relationship Specialty Start Date End Date Humberto Jackson MD [address] [place] [address] PCP - General Family Medicine 01/13/25 Dominik Kelley APRN.CIRCUIT COURT CLERK [address] [place] [address] Government Teacher Family Medicine 09/14/24 Kenyatta Castaneda PA-C [address] [place] [address] Government Teacher Family Medicine 09/14/24 Pattern Technician Relationship Specialty Start Date End Date Humberto Jackson MD [address] [place] [address] PCP - General Family Medicine 01/13/25 Dominik Kelley APRN.CIRCUIT COURT CLERK [address] [place] [address] Government Teacher Family Medicine 09/14/24 02/23/25 Kenyatta Castaneda PA-C [address] [place] [address] Government Teacher Family Medicine 09/14/24 Pattern Technician Relationship Specialty Start Date End Date Humberto Jackson MD [address] [place] [address] PCP - General Family Medicine 01/13/25 Kenyatta Castaneda PA-C [address] [place] [address] Government Teacher Family Medicine 09/14/24 Pattern Technician Relationship Specialty Start Date End Date Humberto Jackson MD [address] [place] [address] PCP - General Family Medicine 01/13/25 Kenyatat Castaneda PA-C [address] [place], [place] 471901 Government Teacher Family Medicine 09/14/24 Pattern Technician Relationship Specialty Start Date End Date Humberto Jackson MD [address] [place], [place] 347051 PCP - General Family Medicine 01/13/25 Kenyatta Castaneda PA-C [address] [place] [address] Government Teacher Family [facility] 09/14/24 Pattern Technician Relationship Specialty Start Date End Date Humberto Jackson MD [facility] [place], [place] 409081 PCP - General Family Medicine 05/06/14 01/12/25 Humberto Jackson MD [address] [place], [place] 4[address]11 PCP - General Family Medicine 01/13/25 Dominik Kelley APRN.CNP [address] [place] [address] [id number] Government Teacher Family [facility] 09/14/24 02/23/25 Kenyatta Castaneda PA-C [address] [place], [place] [id number] Government Teacher Family [facility] 09/14/24 Pattern Technician Relationship Specialty Start Date End Date Humberto Jackson MD [address] [place], [place] 475371 PCP - General Family Medicine 01/13/25 Dominik Kelley, TAX ACCOUNTANT.CIRCUIT COURT CLERK [address] [place] [address] Government Teacher Family Medicine 03/10/25 Kenyatta Castaneda PA-C [address] [place] [address] [facility] 03/10/25 Pattern Technician Relationship Specialty Start Date End Date Humberto Jackson MD [address] [place] [address] PCP - General Family Medicine 01/13/25 Dominik Kelley, TAX ACCOUNTANT.CIRCUIT COURT CLERK [address] [place] [address] [facility] Medicine 03/10/25 Kenyatta Castaneda PA-C [address] [place] [address] [facility] 03/10/25 Pattern Technician Relationship Specialty Start Date End Date Humberto Jackson MD [address] [place] [address] PCP - General Family Medicine 01/13/25 Dominik Kelley, TAX ACCOUNTANT.CIRCUIT COURT CLERK [facility] [place] [address] [facility] Medicine 03/10/25 Kenyatta Castaneda PA-C [address] [place] [address] [facility] Medicine 03/10/25 Goals (unrecognized section and content) Goals may be documented in a n alternate section FOR RECORDS PERTAINING TO PATIENTS WHO ARE OR HAVE BEEN ENROLLED IN A CHEMICAL DEPENDENCY/SUBSTANCEABUSE PROGRAM, SOME INFORMATION MAY BE OMITTED. This clinical summary was aggregated from multiple sources. Caution should be exercised in using it in the provision of clinical care. This summary normalizes information from multiple sources, and as a consequence, information in this document may materially change the coding, format and clinical context of patient data. In addition, data may be omitted in some cases. CLINICAL DECISIONS SHOULD BE BASED ON THE PRIMARY CLINICAL RECORDS. [facility] [employer]. provides no warranty or guarantee of the accuracy or completeness of information in this document.
[2025-03-16 12:40] LABS: Absolute Lymphocyte Count 2.38 X10^3/uL (0.83-4.51); Absolute Neutrophil Count 4.8 X10^3/uL (2.0-7.7); Basophil# 0.07 X10^3/uL; Basophil% 0.9 % (0-1); Eosinophil# 0.16 X10^3/uL; Hematocrit 24.3 % (40-54); Hemoglobin 7.2 g/dL (13.0-16.5); Lymphocyte # 2.38 X10^3/ul (0.83-4.51); Lymphocyte % 30.2 % (19-41); Mean Corp Hgb Conc 29.6 g/dL (32-36); Mean Corpuscular Hgb 22.8 pg (27.0-32.0); Mean Corpuscular Volume 76.9 fL (80-94); Mean Platelet Vol. 11.5 fl (6.2-12.0); Monocyte# 0.48 X10^3/uL; Monocyte% 6.1 % (0-10); NRBC Flagged by Analyzer 0.3 % (0-5); Neutrophil # 4.75 X10^3/uL (2.7-7.7); Neutrophil % 60.3 % (47-70); Platelet Count 399 K/mm3 (150-450); RBC Distribution Width CV 14.5 % (11.6-14.6); RBC Distribution Width SD 39.8 fl (35.1-43.9); Red Blood Count 3.16 M/mm3 (4.6-6.2); White Blood Count 7.9 K/mm3 (4.4-11.0)
[2025-03-16 13:05] LABS: Anion Gap 12 (5-15); BUN 13 mg/dL (4-19); BUN/Creat Ratio 15.6 RATIO (10-20); Calcium,Total 8.9 mg/dL (7.6-11.0); Carbon Dioxide 22.2 mmol/L (21.0-32.0); Chloride 102 mmol/L (98-108); Creatinine, Serum 0.83 mg/dL (0.70-1.20); EST Glomerular Filtration Rate 107 (>60); Estimated Creatinine Clearance 148.05 ml/min (50-250); Glucose 238 mg/dL (70-99); Potassium 3.9 mmol/L (3.3-5.1); Sodium Level 136 mmol/L (133-145); Troponin T High Sensitivity 10 ng/L (<=22)
--- NOTE | 2025-03-16 13:10 | CT_ITS ---
PROCEDURE: ABDOMEN/PELVIS W IV CONT ONLY 03/16/2025 REASON FOR EXAM: ABDOMINAL PAIN, ANEMIA, WEIGHT LOSS TECHNIQUE: Abdomen and pelvis CT with intravenous contrast. Coronal and Sagittal reconstruction series were provided. PATIENT PREPARATION: Per protocol ORAL CONTRAST TYPE: None. AMOUNT: mL CONTRAST: Omnipaque 350 VOLUME: 100 mL One or more dose reduction techniques were used (e.g., Automated exposure control, adjustment of the mA and/or kV according to patient size, use of iterative reconstruction technique. COMPARISON: None FINDINGS: Lung bases: 4 mm right lower lobe nodule (series 2, image 2). Liver: Diffuse steatosis. No focal lesion. Gallbladder: No ductal dilation. Gallbladder is collapsed. Spleen: No splenomegaly. Pancreas: Normal size without evidence of mass surrounding inflammation or ductal dilation. Adrenals: Unremarkable. Kidneys: Normal renal sizes. No hydronephrosis. Mild bilateral nonspecific perinephric soft tissue stranding. Bladder: Urinary bladder is unremarkable. Reproductive Organs: No pelvic mass. Bowel: Moderately distended stomach. There is circumferential wall thickening of the pylorus (series 601, image 60, series 2 image 38) with resultant luminal narrowing. Small bowel and colonic loops are otherwise nondistended. Moderate colonic stool. Colonic diverticulosis without diverticulitis. Appendix: Status post appendectomy. Lymph nodes: 18 mm lymph node above the greater omentum (series 2 image 22). A few other prominent/mildly enlarged retroperitoneal lymph nodes also noted. Vasculature: Mild diffuse atherosclerotic calcifications are noted. Peritoneum / Retroperitoneum: Trace ascites. Diffuse nodularity and stranding along the along the mesenteric, predominantly in the right upper quadrant and bilateral paracolic gutters. No pneumoperitoneum. Bones: There are innumerable small sclerotic lesions scattered throughout the lumbosacral spine, bilateral femoral head and neck and pubic bones.. Soft tissue: Small fat containing umbilical hernia. CT/Abdomen/Pelvis W IV Cont ONLY IMPRESSION: 1. Mildly distended stomach, secondary to gastric pylorus circumferential wall thickening and resultant luminal narrowing. Findings concerning for an underlying obstructive gastric mass/outlet obstructi on. Recommend further evaluation with endoscopy. 2. Multiple prominent-mildly enlarged retroperitoneal nodes. 3. Diffuse nodularity within the anterior mesentery and bilateral paracolic gut ters, concerning for peritoneal carcinomatosis. 4. Multiple sclerotic osseous lesions concerning for osseous metastasis. Reading [facility]
--- NOTE | 2025-03-16 13:11 | EX.ED.DYSGE1 ---
HPI History of Present Illness Chief Complaint: Palpitations Detail of Chief Complaint: Weakness, dyspnea, racing heart Informant: patient Narrative Narrative: Patient presents the emergency department complaint of not feeling well for over a week and a half. Patient states that he saw primary care physician who did some blood work and noted that he was anemic with hemoglobin of 9 over a week ago. Patient was scheduled to have a colonoscopy later this month. He was started on iron. He continues to not feel well. Complains of feeling lightheaded and dizzy with standing and heart racing. Denies blood in his stool or black tarry stool. Patient states he has not had a good bowel movement in 3 days and he attributes that to the iron. He denies fevers chills or sweats. He has had about an 18 pound weight loss in the last month because he is just not been eating as much and is cut his portion sizes. There is a family history of colon cancer. [facility] Medical History History of rectal abscess Multiple thyroid nodules Restrictive airway disease Abnormal chest CT Pneumonia Acute respiratory failure Shortness of breath Community acquired pneumonia Chronic headache Acute respiratory failure with hypoxia GERD (gastroesophageal reflux disease) Anxiety and depression Diabetes mellitus, type II Obesity (BMI 30-39.9) HLD (hyperlipidemia) MIKE (obstructive sleep apnea) Home Medications ?Medication ?Instructions ?Recorded ?Last Taken ?Type esomeprazole magnesium 40 mg 40 mg PO QHS gerd 10/10/17 10/19/18 History capsule,delayed release fenofibrate 50 mg capsule 54 mg PO DAILY cholesterol 10/10/17 10/20/18 History multivitamin 1 ea PO DAILY supplement 10/10/17 10/20/18 History atorvastatin 20 mg tablet 20 mg PO DAILY 03/22/18 10/20/18 History fluoxetine 40 mg capsule 60 mg PO QDAY 03/22/18 10/20/18 History metformin 500 mg tablet 1,000 mg PO BID diabetes 03/22/18 10/20/18 History Fish Oil 1,000 mg Capsule 1,000 mg PO BID 10/20/18 10/20/18 History doxepin 10 mg capsule 10 mg PO QHS 10/20/18 10/19/18 History olanzapine 2.5 mg tablet 2.5 mg PO QHS 10/20/18 10/19/18 History zonisamide 25 mg capsule 25 mg PO DAILY 10/20/18 10/20/18 History empagliflozin 25 mg tablet 25 mg PO DAILY #30 tabs 10/22/18 Unknown Rx buspirone 15 mg tablet mg 04/14/23 Unknown History duloxetine 60 mg capsule,delayed mg PO 04/14/23 Unknown History release fluticasone propionate 50 1 spray intranasal DAILY PRN 04/14/23 Unknown History mcg/actuation nasal allergic symptoms spray,suspension insulin lispro protamine-lispro subcut 04/14/23 Unknown History 100 unit/mL (75-25) subcutaneous pen methylphenidate HCl 10 mg biphasic mg PO 04/14/23 Unknown History 50-50 capsule,extended release amoxicillin 875 mg-potassium 1 tab PO Q12H #14 tabs 03/10/24 Unknown Rx clavulanate 125 mg tablet oxycodone-acetaminophen 5 mg-325 1 - 2 tab PO Q6H PRN pain 3 days 03/10/24 Unknown Rx mg tablet #14 tabs Allergy/AdvReac Type Severity Reaction Status Date / Time citalopram Allergy Unknown Unknown Verified 03/16/25 12:07 venlafaxine Allergy Unknown Unknown Verified 03/16/25 12:07 metoclopramide (From Reglan) Allergy weirds me Verified 03/16/25 12:07 out sertraline (From Zoloft) Allergy sexual Verified 03/16/25 12:07 side effects topiramate (From Topamax) Allergy Unknown Verified 03/16/25 12:07 Family History Father Colon cancer at age 53 Heart disease Myocardial infarction Surgical History Hx of drainage of abscess (~04/2023) Hx of appendectomy Hx of tonsillectomy Social History Smoking Status: Never smoker second hand exposure: No alcohol intake: never substance use type: does not use caffeine: Yes what type of physical activity do you participate in: none frequency: does not exercise seatbelt use: always ROS ROS ED Review of Systems ROS Unobtainable: other Constitutional Constitutional ED: Reports lethargy; Denies chills, fever(s), sweats or weight loss Eyes Eyes: Denies blurry vision, change in vision or diplopia ENT ENT ED: Denies rhinorrhea or sore throat Cardiovascular Cardiovascular: Reports chest pain and racing heartbeat; Denies orthopnea Respiratory/Chest Respiratory/Chest: Denies cough, dyspnea, dyspnea on exertion, orthopnea or sputum Gastrointestinal Gastrointestinal: Reports abdominal pain; Denies diarrhea, nausea or vomiting Genitourinary Genitourinary ED: Denies dysuria, hematuria or urinary frequency Musculoskeletal Musculoskeletal: Denies arthralgias, back pain, myalgias or neck pain Integumentary Denies abscess, Abrasions or rash Neurologic Neurologic: Reports weakness and other Details: Lightheadedness ; Denies headache(s) Psychiatric Psychiatric: Denies anxiety, depression or suicidal thoughts Endocrine Endocrinology: Denies polydipsia, polyphagia or polyuria Hematologic/Lymphatic Hematologic/Lymphatic: Denies easy bleeding, easy bruising or lymphadenopathy Allergic/Immunologic Allergic/Immunologic ED: Denies mouth swelling, tongue swelling or urticaria EXAM Physical Exam Const Vital Signs: 03/16/25 12:07 03/16/25 12:07 03/16/25 12:20 Temperature 98.4 F Temperature Source Oral Pulse Rate 99 Respiratory Rate 18 Respiratory Effort Normal Non-Labored Respiratory Depth Normal Respiratory Pattern Normal Blood Pressure 146/88 H Blood Pressure Mean 107 Blood Pressure Source Blood Pressure Position Blood Pressure Location Pulse Ox 99 Oxygen Delivery Method Room Air Room Air Room Air 03/16/25 13:07 03/16/25 13:15 03/16/25 13:30 Temperature Temperature Source Pulse Rate 98 96 Respiratory Rate 16 24 H Respiratory Effort Respiratory Depth Respiratory Pattern Blood Pressure 123/90 H Blood Pressure Mean 100 Blood Pressure Source Blood Pressure Position Blood Pressure Location Pulse Ox 95 98 Oxygen Delivery Method 03/16/25 13:30 03/16/25 13:30 03/16/25 13:45 Temperature Temperature Source Pulse Rate 94 Respiratory Rate 17 Respiratory Effort Respiratory Depth Respiratory Pattern Blood Pressure 123/90 H 123/90 H 131/89 H Blood Pressure Mean 100 100 100 Blood Pressure Source Blood Pressure Position Blood Pressure Location Pulse Ox 95 Oxygen Delivery Method 03/16/25 14:00 03/16/25 14:15 03/16/25 14:30 Temperature Temperature Source Pulse Rate 89 91 Respiratory Rate 23 H 23 H Respiratory Effort Respiratory Depth Respiratory Pattern Blood Pressure 132/87 H 134/85 H 137/89 H Blood Pressure Mean 100 100 104 Blood Pressure Source Blood Pressure Position Blood Pressure Location Pulse Ox 93 92 Oxygen Delivery Method 03/16/25 14:35 03/16/25 14:40 03/16/25 14:55 Temperature 98.5 F 98.5 F 98.1 F Temperature Source Oral Oral Oral Pulse Rate 92 90 97 Respiratory Rate 20 H 27 H 20 H Respiratory Effort Respiratory Depth Respiratory Pattern Blood Pressure 137/89 H 137/89 H 109/69 Blood Pressure Mean 105 105 82 Blood Pressure Source Monitor Monitor Monitor Blood Pressure Position Semi-Fowlers Semi-Fowlers Semi-Fowlers Blood Pressure Location Right Arm Right Arm Right Arm Pulse Ox 95 93 94 Oxygen Delivery Method Room Air Room Air Room Air Positive well nourished and well developed Constitutional Narrative: Patient pale appearing General Appearance ED: well developed and NAD HEENT Reports TM's clear and moist mucous membranes normocephalic and atraumatic; Negative for trauma or tenderness Tympanic Membrane ED: Yes TM's clear Eyes PERRL and EOMs intact bilaterally General Eye ED: Negative for pale conjunctiva or scleral icterus Neck no lymphadenopathy, supple and no JVD General: Negative for tenderness Chest Wall inspection of chest normal and palpation of chest normal Chest: Negative for tenderness Resp normal respiratory effort and clear to auscultation bilaterally Effort and Inspection: Negative for respiratory distress or pain with movement Auscultation: Negative for rhonchi, wheezes or diminished lung sounds Cardio regular rate, regular rhythm, S1 normal heart sound, S2 normal heart sound and no murmurs Peripheral Pulses: pulses 2+ throughout GI normal to inspection, nondistended, normoactive bowel sounds, soft to palpation, non-distended and no masses GI Narrative: Mild diffuse tenderness. There is no rebound, rigidity, peritoneal signs. No mass palpated Back/Spine no CVA tenderness and no thoracic nor lumbar tenderness Extremity normal to inspection General Extremety ED: Negative for edema General Extremity: Negative for edema Neuro oriented x3, CN's II-XII intact bilaterally, no sensory deficits noted and gait normal Sensorium / Orientation: awake, alert, oriented to person, oriented to place and oriented to time Motor Exam: strength 5/5 throughout and strength abnormal Psych mental status grossly normal Skin no rashes or lesions noted and no wounds MDM MDM MDM Narrative Medical decision making narrative: Patient presents with anemia that is symptomatic. Hemoglobin was 9 a week ago and now patient continues to be quite symptomatic. I did do a rectal exam but there was no stool in the rectal vault and the Hemoccult returned negative. IV line established. He was typed and screened. CBC with differential obtained showed white count 7.9 with hemoglobin 7.2 and platelet count of 399. Chemistries unremarkable. CT scan of abdomen pelvis obtained showed mildly distended stomach secondary to gastric pylorus circumferential wall thickening and resultant luminal narrowing concerning for obstructed gastric mass or outlet obstruction. Also noted to have multiple prominent mildly enlarged retroperitoneal lymph nodes. Patient has diffuse nodularity within the anterior mesentery and bilateral paracolic gutters concerning for peritoneal carcinomatosis. Patient also has multiple sclerotic osseous lesions within the lumbar spine concerning for osseous metastasis. Case discussed with chief business officer who will see patient in consultation tomorrow. I did type and cross patient for 1 unit of packed red cells. Discussed case with hospitalist to evaluate patient for admission for symptomatic anemia and concern for malignancy with bony metastasis Lab Data Attestation: I reviewed the patient's lab results. Labs: Laboratory Results - last 24 hr 03/16/25 03/16/25 12:29 13:12 WBC 7.9 RBC 3.16 L Hgb 7.2 L Hct 24.3 L MCV 76.9 L MCH 22.8 L MCHC 29.6 L RDW Std Deviation 39.8 RDW Coeff of Katie 14.5 Plt Count 399 MPV 11.5 Immature Gran % (Auto) 0.500 Neut % (Auto) 60.3 Lymph % (Auto) 30.2 [place] % (Auto) 6.1 Eos % (Auto) 2.0 Baso % (Auto) 0.9 Absolute Neuts (auto) 4.8 Absolute Lymphs (auto) 2.38 Nucleated RBC % 0.3 Sodium 136 Potassium 3.9 Chloride 102 Carbon Dioxide 22.2 Anion Gap 12 BUN 13 Creatinine 0.83 Estim Creat Clear Calc 148.05 Est GFR (MDRD) Non-Af 107 BUN/Creatinine Ratio 15.6 Glucose 238 H Calcium 8.9 Troponin T High Sens 10 Blood Type O POSITIVE Antibody Screen NEGATIVE Crossmatch See Detail Radiography Diagnostic Testing: Clinical Impression(s) from Imaging Studies Chest X-Ray 03/16/25 12:37 IMPRESSION: No acute process Reading Location: [facility]- Abdomen/Pelvis CT 03/16/25 13:10 IMPRESSION: 1. Mildly distended stomach, secondary to gastric pylorus circumferential wall thickening and resultant luminal narrowing. Findings concerning for an underlying obstructive gastric mass/outlet obstruction. Recommend further evaluation with endoscopy. 2. Multiple prominent-mildly enlarged retroperitoneal nodes. 3. Diffuse nodularity within the anterior mesentery and bilateral paracolic gutters, concerning for peritoneal carcinomatosis. 4. Multiple sclerotic osseous lesions concerning for osseous metastasis. Reading Location: [facility] view chest x-ray obtained interpreted by myself as no evidence of infiltrate or pneumothorax or acute disease process. Radiology in agreement. EKG Initial EKG: Attestation: I personally reviewed and interpreted this EKG as follows: Comments: Sinus rhythm with ventricular rate of 90 bpm with no acute ST segment changes Discharge Plan Triage Chief Complaint: Palpitations Other Complaint: Shortness of Breath ED Provider: Macey Merchant Dx/Rx/DC Orders Clinical Impression: Anemia, Gastric mass, Cancer, metastatic to bone, Carcinomatosis Prescriptions: No Action atorvastatin 20 mg tablet 20 mg PO DAILY fluoxetine 40 mg capsule 60 mg PO QDAY multivitamin 1 EACH tablet 1 ea PO DAILY esomeprazole magnesium 40 MG capsule 40 mg PO QHS fenofibrate 50 MG capsule 54 mg PO DAILY metformin 500 mg tablet 1,000 mg PO BID doxepin 10 MG capsule 10 mg PO QHS olanzapine 2.5 MG tablet 2.5 mg PO QHS zonisamide 25 MG capsule 25 mg PO DAILY Fish Oil 1,000 mg Capsule 1,000 mg PO BID empagliflozin 25 MG tablet 25 mg PO DAILY Qty: 30 0RF buspirone 15 mg tablet Patient Comments: TAKE 1 TABLET BY MOUTH TWICE A DAY insulin lispro protamin-lispro 100 unit/mL (75-25) insulin pen SUBCUT methylphenidate HCl 10 mg capsule,ER biphasic 50-50 PO Patient Comments: TAKE 1 CAPSULE BY MOUTH EVERY DAY duloxetine 60 mg capsule,delayed release(DR/EC) PO Patient Comments: TAKE 1 CAPSULE BY MOUTH ONCE DAILY fluticasone propionate 50 mcg/actuation spray,suspension 1 spray intranasal DAILY PRN (Reason: allergic symptoms) Rx Instructions: administer into each nostril amoxicillin-pot clavulanate 875-125 mg tablet 1 tab PO Q12H Qty: 14 0RF oxycodone-acetaminophen 5-325 mg tablet 1 - 2 tab PO Q6H PRN (Reason: pain) 3 Days Qty: 14 0RF Primary Care Provider: Humberto Dos Santos Referrals: Humberto Dos Santos MD [Primary Care Provider] - Print Language: Serbian Disposition Disposition: Acute Care Hospital [facility]
[2025-03-16] MEDS: 0.9% Normal Saline (1000mL) 1,000 ML 999 ML IV (13:48)
[2025-03-16 15:03] LABS: Troponin T High Sens 2 HR 6 ng/L (<=22)
--- OUTSIDE RECORDS SUMMARY | 2025-03-16 15:08 | XMS RPT_ITS | CCD ---
Author Organization [facility] Care Team Providers Care Clinical Social Work Aide Name Role Phone Alejandro Calderon Unavailable Unavailable Humberto Jackson Unavailable Unavailable Humberto Jackson Unavailable Unavailable Ortiz, Emeterio Unavailable Unavailable Humberto Jackson Unavailable Unavailable Humberto Jackson Unavailable Unavailable Humberto Jackson MD Primary Care Provider Humberto Jackson MD Primary Care Provider Humberto Jackson MD Primary Care Provider Humberto Jackson MD Primary Care Provider Dr. Humberto Jackson Primary Care Provider Dr. Macey Merchant Emergency Provider [phone] Prince Villanueva Attending Provider Dr. Prince Villanueva Other Provider Dr. Prince Villanueva Admit Provider [phone] Humberto Jackson MD Primary Care Provider Andre MOULTON, Efren Unavailable Humberto Jackson MD Primary Care Provider Humberto Jackson MD Primary Care Provider [phone] Prince Villanueva Attending Unavailable Prince Villanueva Admitting [...] HUMBERTO VLADIMIR Primary Care Unavailspike olivia Knguy HR BUSINESS PARTNER CONSULTANT.KITMAN, Dominik Unavailable Kenyatta Castaneda PA-C Unavailable TORRES MONACO Referring Unavailable MANUEL, HUMBERTO A Primary Care Unavailable MANUEL, HUMBERTO A Referring Unavailable MANUEL, HUMBERTO A Primary Care Unavailable MANUEL, HUMBERTO A Primary Care Unavailable LAUREN MCKEON Referring Unavailable Humberto Jackson MD Primary Care Provider [phone] Alfie HR BUSINESS PARTNER CONSULTANT.KITMAN, Dominik Unavailable JENN BOWMAN Attending Unavailable MANUEL, HUMBERTO A Referring Unavailable MANUEL, HUMBERTO A Primary Care Unavailable LAUREN MCKEON Attending Unavailable MANUEL, HUMBERTO A Primary Care Unavailable KENYATTA CASTANEDA Referring Unavailable MANUEL, HUMBERTO A Primary Care Unavailable Humberto Jackson MD Primary Care Provider Alfie HR BUSINESS PARTNER CONSULTANT.KITMAN, Dominik Unavailable Kenyatta Castaneda PA-C Unavailable MANUEL, [...] MANUEL, HUMBERTO A Primary Care Unavailable VIKASH RUSSELL Attending Unavailab le MANUEL, HUMBERTO A Primary Care Unavailable KENYATTA CASTANEDA Attending Unavailable ONI QUIGLEY Attending Unavailable MANUEL, HUMBERTO A Primary [...] Attending Unavailable MANUEL, HUMBERTO A Referring Unavailable JAIRO BABCOCK Attending Unavailable MANUEL, HUMBERTO A Primary [...] Drug Allergy 10-22-19 15 Other: See Comments [facility] Work Phone: (20 sources) Metoclopramide; Translations: [METOCLOPRAMIDE HCL] Drug Allergy 01-25-20 07 Unknown [facility] Work Phone: (20 sources) Sertraline; Translations: [SERTRALINE HCL] Drug Allergy 10-22-19 15 Other: See Comments [facility] Work Phone: (20 sources) topiramate; Translations: [TOPIRAMATE] Drug Allergy 02-05-20 14 Mental Status Change [facility] Work Phone: (20 sources) venlafaxine; Translations: [VENLAFAXINE ANALOGUES] Drug Allergy 10-22-19 15 Other: See Comments [facility] Work Phone: (2 sources) Citalopram Drug Allergy 03-06-20 19 Unknown [facility] (2 sources) Metoclopramide Drug Allergy 03-06-20 19 weirds me out [facility] (2 sources) Sertraline Drug Allergy 03-06-20 19 sexual side effects [facility] (1 source) Citalopram Drug Allergy 03-13-20 24 [facility] Repository (1 source) Metoclopramide Drug Allergy 03-13-20 24 [facility] Repository (1 source) Sertraline Drug Allergy 03-13-20 24 [facility] Repository (1 source) topiramate Drug Allergy 03-13-20 24 [facility] Repository (1 source) venlafaxine Drug Allergy 03-13-20 24 [facility] Repository (1 source) ALLERGIES NOT ON FILE; Translations: [ALLERGIES NOT ON FILE] Propensity to adverse reactions (disorder) [facility] Medications Current Medications Medication Drug Class(es) Dates Sig (Normalized) Sig (Original) [id number] 200 actuat albuterol 0.09 mg/actuat metered dose inhaler (20 sources) beta2-Adrenergic Agonist Start: 12-30-2024 take 2 puff(s) by inhalation three times daily albuterol HFA (PROVENTIL HFA, VENTOLIN HFA) 90 mcg/actuation inhaler Inhale 2 Puffs as instructed three times a day. 1 Each 12/30/2024 Active 07/22/2024 06/12/2024 11/15/2020 Higher is Better Phys [...] Storm Patel PT documented in this encounter [facility] 06-28-2024 History of Present illness Narrative Program_ID:[id number] Access Code: [email or web address] URL: [email or web address] Date: 06-28-2024 Prepared By: Storm Patel Program [...] THERAPY PHYSICAL THERAPY TREATMENT NOTE ASSESSMENT: Bianca Montesfelecia tolerated the session with fatigue and expected [...] : 802 Session Stop Time : 842 Rubykarina Dexter, PSYCH SPECIALIST Storm Patel PT documented in this encounter [facility] 06-28-2024 Note HNO ID: [id number] Author: STORM PATEL PT Service: ? Author [...] 802 Session Stop Time : 842 Ruby Dexter, PSYCH SPECIALIST Storm Patel, PT [facility] 06-17-2024 Telephone encounter Note Prescription Refill Information [...] Daugherty MA June 17, 2024 8:35 AM [facility] 06-17-2024 Miscellaneous Notes Prescription Refill Information The [...] 2024 8:35 AM documented in this encounter [facility] 06-12-2024 Note HNO ID: [id number] Author: STORM PATEL PT Service: ? Author [...] Goals for Episode of Care: established 06/12/24 [place] in home exercise program. 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 [facility] 06-12-2024 History of Present illness Narrative Images [...] Goals for Episode of Care: established 06/12/24 [place] in home exercise program. 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 Author Type: Nurse Practitioner Type: [...] proton pump inhibitor 01/27/2017: Diabetic eye exam ([facility]) Comment: Last eye exam: 03/05/2019 03/31/2014: Diverticulosis [...] disorder with single episode, in partial remission ([facility]) 09/11/2015: Migraine without aura and without status migrainosus, not intractable 03/31/2014: Mood disorder ([facility]) 02/27/2018: Multiple thyroid nodules Comment: Seen Dr. Lazaro 03/201802/27/2018: Multiple thyroid nodules Comment: US 03/2020 per radiology no further f/u needed.. All benign Biopsy 03/[address] Lazaro. Benign. 10/21/2022: Obesity, Class II, BMI 35-39.9 01/27/2017: Obstructive sleep apnea syndrome Comment: On CPAP 03/25/2013: Other joint derangement, not elsewhere classified, lower leg 07/28/2020: Primary insomnia 04/20/2021: QT prolongation Comment: Seen [facility] 04/19/2021: [place] to be benign and related to anti-depressants. No changes needed. 03/31/2014: TMJ (temporomandibular joint disorder) Comment: Right side 01/19/2017: Type 2 diabetes mellitus without complication, without long-term current use of insulin ([facility]) 12/17/2014: Well adult exam Comment: Last done:11/16/2019 [...] at bedtime. dox (more content not included)... [facility] 06-06-2024 History of Present illness Narrative Chief [...] Acute hypoxemic respiratory failure due to COVID-19 ([facility]) 03/31/2014: Agitation 03/31/2014: Allergic rhinitis 03/31/2014: Allergy-induced asthma Comment: Mild intermitant 12/07/2022: Attention 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 Comment: Substance agreement signed 12/2022, Tox screen done 12/202209/26/2018: Current use of proton pump inhibitor 01/27/2017: Diabetic eye exam ([facility]) Comment: Last eye exam: 03/05/2019 03/31/2014: Diverticulosis [...] disorder with single episode, in partial remission ([facility]) 09/11/2015: Migraine without aura and without status migrainosus, not intractable 03/31/2014: Mood disorder ([facility]) 02/27/2018: Multiple thyroid nodules Comment: Seen Dr. Lazaro 03/201802/27/2018: Multiple thyroid nodules Comment: US 03/2020 per radiology no further f/u needed.. All benign Biopsy 03/[address] Lazaro. Benign. 10/21/2022: Obesity, Class II, BMI 35-39.9 01/27/2017: Obstructive sleep apnea syndrome Comment: On CPAP 03/25/2013: Other joint derangement, not elsewhere classified, lower leg 07/28/2020: Primary insomnia 04/20/2021: QT prolongation Comment: Seen [facility] 04/19/2021: [place] to be benign and related to anti-depressants. No changes needed. 03/31/2014: TMJ (temporomandibular joint disorder) Comment: Right side 01/19/2017: Type 2 diabetes mellitus without complication, without long-term current use of insulin ([facility]) 12/17/2014: Well adult exam Comment: Last done:11/16/2019 [...] 1 capsule by mouth once daily. Insulin [place], Disposable, (DROPLET PEN NEEDLE) 31 gauge x [...] choice. LIFETIME SUPPLIES. SD Card. Download to [employer]. multivitamin tablet Take 1 tablet by mouth [...] Abs Lymph 1.00 - 4.00 k/uL 3.30 Isabella% % 4.7 Abs Isabella <0.87 k/uL 0.49 Eosin% % 1.6 Abs [...] COMPLETE BLOOD COUNT AND DIFFERENTIAL Dominik Kelley APRN.KITMAN documented in this encounter [facility] 05-28-2024 Telephone encounter Note Pt notified and verbalized understanding Marce Workman, MA [facility] 05-28-2024 Miscellaneous Notes Pt notified and verbalized understanding Marce Jackson MA Called and left a voicemail for the Patient to call back and ask for a nurse to receive the providers message. Emma Martínez RN Please let patient know their xray is normal. documented in this encounter [facility] 05-27-2024 Telephone encounter Note Called and left a voicemail for the Patient to call back and ask for a nurse to receive the providers message. Emma Martínez RN [facility] 05-27-2024 Telephone encounter Note Please let patient know their xray is normal. [facility] Work Phone: 05-21-2024 History of Present illness [...] PATIENT PRESENTS WITH AN IMPLANTABLE OR ATTACHED SMALL BUSINESS REPRESENTATIVE: No RADIOLOGY DEPARTMENT: General X-ray: Exam(s) Completed: Upper Extremity X-Ray(s): Shoulder, AP / TRUE AP right Scapular Y view PERIPHERAL IV DATA: Not applicable SIGNED BY: RT Yelena(Lino) May 21, 2024 4:16 PM documented in this encounter [facility] 05-21-2024 Note HNO ID: [id number] Author: LINDY NARAYAN RT (R) Service: ? Author Type: Uniform Cap Operator Type: Progress Notes Filed: 05/21/2024 16:16 Note [...] PATIENT PRESENTS WITH AN IMPLANTABLE OR ATTACHED SMALL BUSINESS REPRESENTATIVE: No RADIOLOGY DEPARTMENT: General X-ray: Exam(s) Completed: Upper Extremity X-Ray(s): Shoulder, AP / TRUE AP right Scapular Y view PERIPHERAL IV DATA: Not applicable SIGNED BY: MISSAEL Kirk) May 21, 2024 4:16 PM [facility] 05-21-2024 Note HNO ID: [id number] Author: DOMINIK KELLEY APRN.KITMAN Service: ? Author Type: Nurse Practitioner Type: [...] Acute hypoxemic respiratory failure due to COVID-19 ([facility]) 03/31/2014: Agitation 03/31/2014: Allergic rhinitis 03/31/2014: Allergy-induced asthma Comment: Mild intermitant 12/07/2022: Attention 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 Comment: Substance agreement signed 12/2022, Tox screen done 12/202209/26/2018: Current use of proton pump inhibitor 01/27/2017: Diabetic eye exam ([facility]) Comment: Last eye exam: 03/05/2019 03/31/2014: Diverticulosis [...] disorder with single episode, in partial remission ([facility]) 09/11/2015: Migraine without aura and without status migrainosus, not intractable 03/31/2014: Mood disorder ([facility]) 02/27/2018: Multiple thyroid nodules Comment: Seen Dr. Lazaro 03/201802/27/2018: Multiple thyroid nodules Comment: US 03/2020 per radiology no further f/u needed.. All benign Biopsy 03/[address] Lazaro. Benign. 10/21/2022: Obesity, Class II, BMI 35-39.9 01/27/2017: Obstructive sleep apnea syndrome Comment: On CPAP 03/25/2013: Other joint derangement, not elsewhere classified, lower leg 07/28/2020: Primary insomnia 04/20/2021: QT prolongation Comment: Seen [facility] 04/19/2021: [place] to be benign and related to anti-depressants. No changes needed. 03/31/2014: TMJ (temporomandibular joint disorder) Comment: Right side 01/19/2017: Type 2 diabetes mellitus without complication, without long-term current use of insulin ([facility]) 12/17/2014: Well adult exam Comment: Last done:11/16/2019 [...] by mouth da (more content not included)... [facility] 05-21-2024 History of Present illness Narrative Chief [...] Acute hypoxemic respiratory failure due to COVID-19 ([facility]) 03/31/2014: Agitation 03/31/2014: Allergic rhinitis 03/31/2014: Allergy-induced asthma Comment: Mild intermitant 12/07/2022: Attention 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 Comment: Substance agreement signed 12/2022, Tox screen done 12/202209/26/2018: Current use of proton pump inhibitor 01/27/2017: Diabetic eye exam ([facility]) Comment: Last eye exam: 03/05/2019 03/31/2014: Diverticulosis [...] disorder with single episode, in partial remission ([facility]) 09/11/2015: Migraine without aura and without status migrainosus, not intractable 03/31/2014: Mood disorder ([facility]) 02/27/2018: Multiple thyroid nodules Comment: Seen Dr. Lazaro 03/201802/27/2018: Multiple thyroid nodules Comment: US 03/2020 per radiology no further f/u needed.. All benign Biopsy 03/[address] Lazaro. Benign. 10/21/2022: Obesity, Class II, BMI 35-39.9 01/27/2017: Obstructive sleep apnea syndrome Comment: On CPAP 03/25/2013: Other joint derangement, not elsewhere classified, lower leg 07/28/2020: Primary insomnia 04/20/2021: QT prolongation Comment: Seen [facility] 04/19/2021: [place] to be benign and related to anti-depressants. No changes needed. 03/31/2014: TMJ (temporomandibular joint disorder) Comment: Right side 01/19/2017: Type 2 diabetes mellitus without complication, without long-term current use of insulin ([facility]) 12/17/2014: Well adult exam Comment: Last done:11/16/2019 [...] 1 capsule by mouth once daily. Insulin [place], Disposable, (DROPLET PEN NEEDLE) 31 gauge x [...] choice. LIFETIME SUPPLIES. SD Card. Download to [employer]. multivitamin tablet Take 1 tablet by mouth [...] - CONSULT TO PHYSICAL THERAPY Dominik Kelley APRN.KITMAN documented in this encounter [facility] 05-21-2024 Telephone encounter Note Patient calls for [...] rash, fever, numbness, weakness. Protocols used: Arm [id number] [facility] 05-21-2024 Miscellaneous Notes Patient calls for arm/shoulder [...] rash, fever, numbness, weakness. Protocols used: Arm [id number] TC patient, left message for patient to call back and speak with a triage nurse regarding patient's symptoms. Patient had requested appointment for pain in right arm and shoulder/tired all the time. Juhi Charles RN documented in this encounter [facility] 05-21-2024 Telephone encounter Note See Nurse triage note; TC patient, left message for patient to call back and speak with a triage nurse regarding patient's symptoms. Patient had requested appointment for pain in right arm and shoulder/tired all the time. Juhi Charles RN [facility] 05-21-2024 Miscellaneous Notes See Nurse triage note; TC patient, left message for patient to call back and speak with a triage nurse regarding patient's symptoms. Patient had requested appointment for pain in right arm and shoulder/tired all the time. Juhi Charles RN documented in this encounter [facility] 05-21-2024 Telephone encounter Note TC patient, left message for patient to call back and speak with a triage nurse regarding patient's symptoms. Patient had requested appointment for pain in right arm and shoulder/tired all the time. Juhi Charles RN [facility] 05-13-2024 Telephone encounter Note The following approved [...] was identified. 05/13/2024 by Humberto Jackson MD [facility] 05-13-2024 Miscellaneous Notes The following approved medication requests [...] 2024 12:43 PM documented in this encounter [facility] 05-13-2024 Telephone encounter Note Prescription Refill Information [...] Daugherty MA May 13, 2024 12:43 PM [facility] 03-12-2024 Note HNO ID: [id number] Author: SHILOH PRADHAN LPN Service: ? Author Type: LICENSED NURSE Type: Progress Notes Filed: 03/12/2024 18:39 Note Text: Scan on 03/12/2024 2:26 PM by Carmenza Daley PA-C: Miscellaneous Procedures [facility] 03-12-2024 History of Present illness Narrative Scan on 03/12/2024 2:26 PM by Carmenza Daley PA-C: Miscellaneous Procedures documented in this encounter [facility] 03-11-2024 Note HNO ID: [id number] Author: TAM DAUGHERTY MA Service: ? Author Type: Car Chaser Type: Progress Notes Filed: 03/11/2024 15:56 Note Text: Scan on 03/10/2024 2:56 PM by Provider, External, PA-C: Miscellaneous Procedures Scan on 03/10/2024 2:58 PM by Provider, External, PA-C: Miscellaneous Procedures Scan on 03/10/2024 7:39 PM by Provider, External, PA-C: Miscellaneous Procedures Tam Daugherty MA [facility] 03-11-2024 History of Present illness Narrative Scan on 03/10/2024 2:56 PM by Provider, Carmenza PA-C: Miscellaneous Procedures Scan on 03/10/2024 2:58 PM by Provider External, PA-C: Miscellaneous Procedures Scan on 03/10/2024 7:39 PM by Provider, External, PA-C: Miscellaneous Procedures Tam Daugherty MA documented in this encounter [facility] 02-28-2024 Telephone encounter Note Kasia Delarosa Your molecular testing is benign and I advise repeat the ultrasound with your PCP in one year. Jacob Prado Junior, MD [facility] Work Phone: 02-28-2024 Miscellaneous Notes Kasia Delarosa Your molecular testing is benign and I advise repeat the ultrasound with your PCP in one year. Jacob Prado Junior, MD documented in this encounter [facility] 02-28-2024 Telephone encounter Note Scan on 02/27/2024 4:49 PM by ProviderCarmenza PA-C: Afirma Report 02/27/24 Received fax today with patients Afirma results, routed to Dr. Prado for review. [facility] 02-28-2024 Miscellaneous Notes Scan on 02/27/2024 4:49 PM by ProviderCarmenza PA-C: Afirma Report 02/27/24 Received fax today with patients Afirma results, routed to Dr. Prado for review. documented in this encounter [facility] 02-24-2024 Telephone encounter Note The following approved [...] was identified. 02/24/2024 by Humberto Jackson MD [facility] 02-24-2024 Miscellaneous Notes The following approved medication [...] Tia Ibarra MA. documented in this encounter [facility] 02-24-2024 Telephone encounter Note Patient has been [...] Please advise. Thank you. Tia Ibarra MA. [facility] 02-14-2024 Telephone encounter Note Called patient to discuss AFIRMA results. Nodule is benign and I recommend US in one year. Jacob Prado Junior, MD [facility] Work Phone: 02-14-2024 Miscellaneous Notes Called patient to discuss AFIRMA results. Nodule is benign and I recommend US in one year. Jacob Prado Junior, MD Afirma results from 01/31/24 received. File Link Scan on 02/12/2024 9:55 PM by ProviderCarmenza PA-C: Miscellaneous Lab Janett Velasco LPN documented in this encounter [facility] 02-13-2024 Telephone encounter Note Afirma results from 01/31/24 received. File Link Scan on 02/12/2024 9:55 PM by ProviderCarmenza PA-C: Miscellaneous Lab Janett Velasco LPN [facility] 01-31-2024 History of Present illness Narrative Jacob prado Jr, M.D. Department of Endocrine Surgery Endocrinology Metabolism [place] [address], [place] [address] ENDOCRINE SURGERY NEW PATIENT VISIT NAME: Bianca Delarosa [facility] NO: [id number] : 1975 History of Present Illness: Bianca [...] Completed ASSESSMENT and PLAN: In summary, Bianca Delarosa has one nodule with FNA indication. Will discuss the results in 5-10 days. I appreciate being involved in the care of your patient, and please feel free to contact me should you have additional questions. Sincerely, Jacob prado Jr, M.D. Clinical Associate Endocrine Surgery [facility] documented in this encounter [facility] 01-24-2024 Miscellaneous Notes The following approved medication [...] Guzman Renteria LPN. documented in this encounter [facility] 01-24-2024 Miscellaneous Notes Unable to schedule with Endo Surgery. Transferred patient to the intake nurse per the EMQ at [phone] Please contact patient to schedule with Endocrine surgery due to increase growth of thyroid nodules. Thank you documented in this encounter [facility] 01-17-2024 Miscellaneous Notes Received a message to [...] day supply. Please review and advise. 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 Unable to take in supplies to monitor [...] as he cannot take supplies into the group home but tries to consume a low [...] disorder with single episode, in partial remission ([facility]) 09/26/2018 Migraine without aura and without status migrainosus, not intractable 09/11/2015 Mood disorder ([facility]) 03/31/2014 Multiple thyroid nodules 02/27/[address] Lazaro 03/2018 Multiple thyroid nodules 02/27/2018 US 03/2020 per radiology no further f/u needed.. All benign Biopsy 03/2018 Dr. Lazaro. Benign. Obesity, Class II, BMI 35-39.9 10/21/2022 Obstructive sleep apnea syndrome 01/27/2017 On CPAP Other joint derangement, not elsewhere classified, lower leg 03/25/2013 Primary insomnia 07/28/2020 QT prolongation 04/20/2021 Seen [facility] 04/19/2021: [place] to be benign and related to anti-depressants. No changes needed. TMJ (temporomandibular joint disorder) 03/31/2014 Right side Type 2 diabetes mellitus without complication, without long-term current use of insulin ([facility]) 01/19/2017 Well adult exam 12/17/2014 Last done:11/16/2019 [...] daily at bedtime. 15 Each 11 Insulin [place], Disposable, (DROPLET PEN NEEDLE) 31 gauge x [...] choice. LIFETIME SUPPLIES. SD Card. Download to [employer]. (Patient not taking: Reported on 10/20/2023) 1 [...] complication, without long-term current use of insulin ([facility]) (primary encounter diagnosis) Comment: Glycemic control is [...] Level: 4 - Moderate Torres Monaco, MSN, HR BUSINESS PARTNER CONSULTANT, TIRE REBUILDER-C, CDE Endocrinology [facility] Medical Office [facility]/[address] [place] [address] Fax: documented in this encounter [facility] 01-17-2024 Procedure note Procedure(s): EXTERNAL PBX SUPERVISOR, CGM SYS Images from the original note were not included. documented in this encounter [facility] 12-16-2023 Miscellaneous Notes The following approved medication requests have been transmitted electronically. Requested Prescriptions Signed Prescriptions Disp Refills methylphenidate CD (METADATE CD) 10 mg biphasic capsule 30 capsule 0 Sig: Take 1 capsule by mouth once daily for 30 days. Humberto Jackson MD Please see pt's message. Carmelo Lopez LPN documented in this encounter [facility] 12-15-2023 Miscellaneous Notes Pt notified of same and will contact pharmacy. Carmelo Lopez LPN The prescription was sent on 12/06 with fill date of 12/07/23. Patient needs to contact pharmacy, Kenyatta Castaneda PA-C Please see pt's message regarding refill of Ritalin. Pt saw you 12/06/23. Carmelo Lopez LPN documented in this encounter [facility] 12-07-2023 Miscellaneous Notes The following approved medication requests have been transmitted electronically. Requested Prescriptions Signed Prescriptions Disp Refills atorvastatin (LIPITOR) 40 mg tablet 90 tablet 1 Sig: Take 1 tablet by mouth once daily. Authorizing Provider: HUMBERTO JACKSON MD Patient informed and agrees to increase of Lipitor. Please send to Jai Clark in [place]. Patient inquired about his Ritalin. States someone [...] UA were ok. documented in this encounter [facility] 12-06-2023 History of Present illness Narrative Chief Complaint Patient presents with: Physical HPI Bianca Delarosa is a 47 year old male who presents here today for Physical. Patient with hx of DM 2, hyperlipidemia, GERD, mood disorder, thyroid nodules, allergies, depression, migraines, insomnia, MIKE as well as those reviewed and addressed below and in ROS 0 Result Notes 1 Topic Component Ref Range & Units 1 [...] proton pump inhibitor 09/26/2018 Diabetic eye exam ([facility]) 01/27/2017 Last eye exam: 03/05/2019 Diverticulosis 03/31/2014 Dyslipidemia 03/31/2014 Low HDL, High Trigs Elevated antinuclear antibody (JALEEL) level 03/31/2014 Family history of malignant neoplasm of gastrointestinal tract 03/31/2014 ISABELLA (generalized anxiety disorder) 06/22/2020 GERD without esophagitis 09/26/2018 Hiatal hernia 03/31/2014 Hx of colonic polyp 03/31/2014 Needs next colonoscopy 08/2022 Lump 11/16/2019 benign left palm Major depressive disorder with single episode, in partial remission ([facility]) 09/26/2018 Migraine without aura and without status migrainosus, not intractable 09/11/2015 Mood disorder ([facility]) 03/31/2014 Multiple thyroid nodules 02/27/[address] Lazaro 03/2018 Multiple thyroid nodules 02/27/2018 US 03/2020 per radiology no further f/u needed.. All benign Biopsy 03/[address] Lazaor. Benign. Obesity, Class II, BMI 35-39.9 10/21/2022 Obstructive sleep apnea syndrome 01/27/2017 On CPAP Other joint derangement, not elsewhere classified, lower leg 03/25/2013 Primary insomnia 07/28/2020 QT prolongation 04/20/2021 Seen [facility] 04/19/2021: [place] to be benign and related to anti-depressants. No changes needed. TMJ (temporomandibular joint disorder) 03/31/2014 Right side Type 2 diabetes mellitus without complication, without long-term current use of insulin ([facility]) 01/19/2017 Well adult exam 12/17/2014 Last done:11/16/2019 [...] 50 Units subcutaneously daily at bedtime. Insulin [place], Disposable, (DROPLET PEN NEEDLE) 31 gauge x [...] choice. LIFETIME SUPPLIES. SD Card. Download to [employer]. (Patient not taking: Reported on 10/20/2023) multivitamin [...] palpation. No hernia.. Health Maintenance List Covid-19 Vaccine( season) due on 06/09/2023 HbA1C due on 01/17/2024 [...] Abs Lymph 1.00 - 4.00 k/uL 3.15 Isabella% % 6.7 Abs Isabella <0.87 k/uL 0.57 Eosin% % 1.4 Abs [...] Negative Negative Ketones, Urine Negative Negative Specific [place], Ur 1.005 - 1.030 1.010 Hemoglobin/Blood,Ur Negative [...] BMI 37.49 kg/(m^2) - Patient was counseled [id number] by myself (the billing provider) for the [...] immunization - ICD9: V03.89, ICD10: Z23 - PFIZER-BIONTtheDrop COVID-19 VACCINE ( [place]) AGE 12+ YR: check Requested Prescriptions [...] Humberto Jackson MD documented in this encounter [facility] 12-01-2023 Miscellaneous Notes STACY Isaac called multiple lines to through at [employer]. [employer] approved the [employer] evert 3 sensors and he last filled on 11/25/23. Closed Faxed Appeal letter and last office note to [employer] DICKINSON at [phone] transmission ok Keep open Rx sent They [...] for the FreeStyle Evert 3 Sensors from [place] ([employer]) Reference # [id number] Reason: We denied your request because we [...] receipt of this letter (10/03/23 received). REF# [id number] Call [facility] once we have the updated information at [phone] to initiate, and they will likely supply a fax to send it to in order to process. Torres, Patients last OV and A1C was in 06/2023 when he was started on the Evert 3. He does not have another visit until 10/10/23. Completed PA via CMM for RX Freestyle Evert 3 Sensors. Will await approval / denial. BIANCA DELAROSA (Bland: [id number]) PA Need Help? Call us at Status sent iconSent to Plan today Drug FreeStyle Evert 3 Sensor [facility] cloud logo Form [employer] [place] [employer] PA Form (2016 NCPDP) documented in this encounter [facility] 09-11-2023 Miscellaneous Notes Received a faxed notification from [employer] that patient has been APPROVED FOR MOUNJARO 2.5 MG / 0.5 MG. REF# [id number] Closed. Received notification from [employer] that they [...] hyperglycemia. Refaxed the last office notes to [phone] (12 pages) Transmission Okx2 Faxed [phone] Transmission Okx2 Prior Authorization: Medication/Dose: Mounjaro 2.5 mg/0.5 mL Diagnosis: Type 2 DM E11.9 Provider: Joselyn Completed Via: over the phone ([employer]) Pending DANNA REF# [id number] Insurance: [employer] JUAREZ/BS Pharmacy: [facility] Notes: Spoke to circulation representative Sumaya at [facility] and completed clinical questionnaire over the phone. Will receive notification of outcome within 5 business days via fax. Also faxed last clinical office note to [phone]. Transmission ok X2. 12 pages. documented in this encounter [facility] 08-24-2023 Miscellaneous Notes Patient phones requesting refills as follows: Script qty adjusted to the proper number. Patient uses 2 a day. Requested Prescriptions Pending Prescriptions Disp Refills Insulin [place], Disposable, (DROPLET PEN NEEDLE) 31 gauge x 3/16 200 Each 3 Sig: Use 2 PEN NEEDLES to inject MEDICATION subcutaneously daily Please review and advise. Marlin Carey MA documented in this encounter [facility] 08-14-2023 Miscellaneous Notes Left message for patient to return call to office Marce Jackson Cma Please let patient know labs are stable. Lipid panel has improved. Patient should continue current medications. documented in this encounter [facility] 07-17-2023 Miscellaneous Notes Please review and advise. documented in this encounter [facility] 06-05-2023 Miscellaneous Notes The following approved medication [...] to pharmacy. No need to notify patient. STACY Cruz 04/2023 Nov 08/2023 Last refill: 03/2023 documented in this encounter [facility] 04-15-[address] [facility] 04-15-2023 Note [facility] Medical Records Department [address] [place] [address] Discharge Summary 04/15/23 1055 MR#: [id number] Acct: [id number] Name: BIANCA DELAROSA Rep #: [id number] : 1975 47 From: Prince Villanueva MD PCP: Dr. Humberto Jackson MD Status:ADM KEYANA Location: [place] [address] Providers Date of Admission: 04/14/23 Primary Care [...] (Auto) 73.5 H, Lymph % (Auto) 19.3, Isabella % (Auto) 5.8, Eos % (Auto) 0.6, Baso % (Auto) 0.5, Absolu te Neuts (auto) 7.2, Absolute Lymphs (auto) 1.89, Nucleated RBC % 0, Sodium 135 L, Po (more content not included)... [facility] 04-14-2023 Discharge summary Note Date/Time April 14, 2023 2:10p m [facility] Medical Records Department [address] [place] [address] Emergency Department Summary 04/14/23 MR#: [id number] Acct: [id number] Name: BIANCA DELAROSA Rep #:[id number] : 1975 47 From: Jil CLAY PCP: Dr. Humberto Jackson MD Status:[facility] Location: [facility] AC-TB A-2 HPI <DANNA Welch - Last [...] week because his arm sensor fell off. [facility] <DANNA Welch - Last Filed: 04/14/23 17:06> [facility] Medical History (Updated 04/14/23 @ 17:03 by [...] <DANNA Welch - Last Filed: 04/14/23 17:06> [facility] MDM Narrative Medical decision making narrative: History [...] (Auto) 73.5 H Lymph % (Auto) 19.3 Isabella % (Auto) 5.8 Eos % (Auto) 0.6 [...] Merchant, DO - Last Filed: 04/14/23 15:59> [facility] MDM Narrative Medical decision making narrative: History [...] (Auto) 73.5 H Lymph % (Auto) 19.3 Isabella % (Auto) 5.8 Eos % (Auto) 0.6 [...] your Primary Care Provider. Call [facility] ([phone]) or report to the closest Emergency Room. Call 911 if necessary. 04/14/23 1706 <Electronically signed by Jil Scott PA> Cosigner Signature (if applicable): 04/14/23 1559 <Electronically signed by Macey Merchant DO> CC: Dr. Hubmerto Jackson MD ~ Signed [facility] Work Phone: 1(933) 639-289507-07-2023 History and physical note Author Prince Villanueva [facility] April 14, 2023 5:05pm Note Date/Time April 14, 2023 4:55p m [facility] Medical Records Department [address] [place] [id number] History & Physical Exam 04/14/23 1651 MR#: [id number] Acct: [id number] Name: BIANCA DELAROSA Rep #:[id number] : 1975 47 From: Prince Blanton PCP: Dr. Humberto Jackson MD Status:[facility] Location: [place] [address] HPI - General General Date of Service: 04/14/23 HPI Narrative BIANCA DELAROSA, is a 47 M who presents to [facility] ER under direction from his PCP after [...] last year and was without remarkable findings. [facility] Medical History (Updated 04/14/23 @ 17:03 by [...] % (Auto) 73.5 H, Lymph % (Auto) 19.3,Isabella % (Auto) 5.8, Eos % (Auto) 0.6, [...] and drainage. Charges/Coding Visit Charges Inpatient E&M: 41998 Init Hosp L2 04/14/23 1705 <Electronically signed by Prince Villanueva MD> Cosigner Signature (if applicable): CC: Dr. Humberto Jackson MD; Dr. Prince Villanueva MD~ Signed [facility] Work Phone: 1(329) 495-342907-07-2023 [facility] Medical Records Department [address] [place] [address] History Physical Exam 04/14/23 1651 MR#: [id number] Acct: [id number] Name: BIANCA DELAROSA Rep #: [id number] : 1975 47 From: Prince Villanueva MD PCP: Dr. Humberto Jackson MD Status:[facility] Location: [facility] HPI - General General Date of Service: 04/14/23 HPI Narrative BIANCA DELAROSA, is a 47 M who presents to [facility] ER under direction from his PCP after [...] last year and was without remarkable findings. [facility] Medical History (Updated 04/14/23 @ 17:03 by [...] GI GI Narrative: Cellulitic (more content not included)...[facility]07-07-2023 Discharge summary Author Jil Scott [facility] April 14, 2023 5:06pm Note Date/Time April 14, 2023 2:10p m [facility] Medical Records Department [address] [facility] [place] [address] Emergency Department Summary 04/14/23 MR#: [id number] Acct: [id number] Name: BIANCA DELAROSA Rep #:[id number] : 1975 47 From: Jil CLAY PCP: Dr. Humberto Jackson MD Status:[facility] Location: [facility] AC-TB A-2 HPI <DANNA Welch - Last [...] <DANNA Welch - Last Filed: 04/14/23 17:06> [facility] Medical History (Updated 04/14/23 @ 17:03 by [...] Verified 03/06/19 14:55 metoclopramide [From Reglan] [facility] Verified 03/06/19 14:55 out sertraline [From Zoloft] [...] Skin: Negative for wound. EXAM <DANNA Welch Last Filed: 04/14/23 17:06> Physical Exam Narrative [...] <DANNA Welch - Last Filed: 04/14/23 17:06> MDM MDM Narrative Medical decision making narrative: History [...] (Auto) 73.5 H Lymph % (Auto) 19.3 Isabella % (Auto) 5.8 Eos % (Auto) 0.6 [...] Merchant, DO - Last Filed: 04/14/23 15:59> [facility] Narrative Medical decision making narrative: History gathered [...] (Auto) 73.5 H Lymph % (Auto) 19.3 Isabella % (Auto) 5.8 Eos % (Auto) 0.6 [...] your Primary Care Provider. Call [facility] ([phone]) or report to the closest Emergency Room. Call 911 if necessary. 04/14/23 1706 <Electronically signed by Jil Scott PA> Cosigner Signature (if applicable): 04/14/23 1559 <Electronically signed by Macey Merchant DO> CC: Dr. Humberto Jackson MD ~ Signed [facility] Work Phone: [phone]) 454-456107-07-2023 History of Present illness Narrative* Dominik Kelley APRN.KITMAN - 04/14/2023 1:45 PM EDT Chief Complaint Patient presents with: Follow Up: Cyst on buttocks HPI Bianca Delarosa is a 47 year [...] Primary insomnia 07/28/2020 QT prolongation 04/20/2021 [facility] 04/19/2021: [place] to be benign and related to anti- [...] mouth once daily for 30 days. Insulin [place], Disposable, (DROPLET PEN NEEDLE) 31 gauge x [...] patient's choice. LIFETIME SUPPLIES.SD Card. Download to [employer]. multivitamin tablet Take 1 tablet by mouth once daily. fluticasone (FLONASE) 50 mcg/actuation nasal spray Use 1 [place] in each nostril once daily. Rinse mouth [...] and abrupt onset of cyst. Dominik Kelley APRN.KITMAN [facility] Instructions* Patient Instructions* Kenyatta Castaneda PA-C - 04/10/2023 8:31 AM EDT Take a Vitamin B complex (with atleast 30mg of B6) 3 times a day for nocturnal leg cramps. [facility] History of Present illness Narrative* Kenyatta Castaneda PA-C - 04/10/2023 8:23 AM EDT Chief Complaint Patient presents with: Recheck: 4 month HPI Bianca Saenz Emmanueljaimee is a 47 year old male who [...] status migrainosus, not intractable 09/11/2015 Mood disorder ([facility]) 03/31/2014 Multiple thyroid nodules 02/27/[address] Lazaro 03/2018 Multiple thyroid nodules 02/27/2018 US 03/2020 per radiology no further f/u needed.. All benign Biopsy 03/[address] Lazaro. Benign. Obesity, Class II, BMI 35-39.9 10/21/2022 Obstructive sleep apnea syndrome 01/27/2017 On CPAP Other joint derangement, not elsewhere classified, lower leg 03/25/2013 Primary insomnia 07/28/2020 QT prolongation 04/20/2021 Seen [facility] 04/19/2021: [place] to be benign and related to anti- depressants. No changes needed. TMJ (temporomandibular joint disorder) 03/31/2014 Right side Type 2 diabetes mellitus without complication, without long-term current use of insulin ([facility]) 01/19/2017 Well adult exam 12/17/2014 Last done:11/16/2019 [...] mouth once daily for 30 days. Insulin [place], Disposable, (DROPLET PEN NEEDLE) 31 gauge x [...] (FLONASE) 50 mcg/actuation nasal spray Use 1 [place] in each nostril once daily. Rinse mouth after use. esomeprazole (NEXIUM) 40 mg capsule Take 40 mg by mouth once daily. CPAP AUTO PAP 5-20 cmH20, CHIN STRAP, heated HUMIDITY, mask of patient's choice. LIFETIME SUPPLIES.SD Card. Download to [employer]. No current facility-administered medications on file prior [...] Stable. Kenyatta Castaneda PA-C [facility] Miscellaneous Notes* Telephone Encounter - Humberto Jackson [...] refill 01/09/23 Qty: 30 with 0 refills [facility] 01/09/23 NOV 04/10/23 Carmelo Lopez LPN documented in [facility] encounterD[facility]06[facility]23 Miscellaneous Notes* Telephone Encounter - Janel Dumont RN - 03/15/2023 8:37 AM EDT Requester: Pharmacy Last Visit in Endocrinology: Provider name: Torres Monaco CNP , Date 01/27/2023 Next Scheduled Appt in Endo: 03/14/2023 Last Refill: 06/07/2022 Number of Refills given: 3 Requested Prescriptions Pending Prescriptions Disp Refills Insulin [place], Disposable, (DROPLET PEN NEEDLE) 31 gauge x 3/16 [Pharmacy Med Name: DROPLET PEN NEEDLE 31GX3/16] 100 Each 3 Sig: Use 2 PEN NEEDLES to inject MEDICATION subcutaneously daily Please review and advise. Janel Dumont RN documented in this encounterD[facility]04-21-2023 Instructions* Patient Instructions* Torres Monaco APRN.CNP - 01/27/2023 4:01 PM EDT Continue metformin 2. Humalog 75/25: Breakfast 30 units Dinner 30 units After a few days increase again to: Breakfast 35 units Dinner 35 units 3. Let me know how things are going in 2 wks. 4. Follow up in 3 months. Torres Monaco, MSN, HR BUSINESS PARTNER CONSULTANT, TIRE REBUILDER-C, CDE Endocrinology [facility] Medical Office [facility]/[address] [place] [address] Fax: documented in this encounterD[facility]04-[facility]23 Procedure note* Marlin Carey MA - 01/27/2023 3:53 PM EDTProcedure(s): EXTERNAL PBX SUPERVISOR, CGM SYS Images from the original note were not included. documented in this encounterD[facility]04-[facility] History of Present illness Narrative* Torres Monaco [...] diabetes mellitus in his family . 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 Unable to take in supplies to monitor his BG at lunch and does not eat breakfasttill later so he was missing both doses of humalog during the work day. Changed to mixed insulin to alleviate the issue. States he is allowed to use a CGM and have his phone--evert 3 rx sent at the last visit which he has been using He is under the care of cardiology, cedrick. His current diabetes regimen is: Humalog 75/25: [...] disorder with single episode, in partial remission ([facility]) 09/26/2018 Migraine without aura and without status migrainosus, not intractable 09/11/2015 Mood disorder ([facility]) 03/31/2014 Multiple thyroid nodules 02/27/[address] Lazaro 03/2018 Multiple thyroid nodules 02/27/2018 US 03/2020 per radiology no further f/u needed.. All benign Biopsy 03/[address] Lazaro. Benign. Obesity, Class II, BMI 35-39.9 10/21/2022 Obstructive sleep apnea syndrome 01/27/2017 On CPAP Other joint derangement, not elsewhere classified, lower leg 03/25/2013 Primary insomnia 07/28/2020 QT prolongation 04/20/2021 [facility] 04/19/2021: [place] to be benign and related to anti- depressants. No changes needed. TMJ (temporomandibular joint disorder) 03/31/2014 Right side Type 2 diabetes mellitus without complication, without long-term current use of insulin ([facility]) 01/19/2017 Well adult exam 12/17/2014 Last done:11/16/2019 [...] x 30 days) 30 tablet 5 Insulin [place], Disposable, (BD ULTRAFINE III MINI PEN) 31 gauge x 3/16 Use two pen needles Each 3 albuterol HFA (PROAIR HFA) 90 [...] (FLONASE) 50 mcg/actuation nasal spray Use 1 [place] in each nostril once daily. Rinse mouth [...] patient's choice. LIFETIME SUPPLIES.SD Card. Download to [employer]. (Patient not taking: Reported on 01/27/2023) 1 [...] complication, without long-term current use of insulin ([facility]) (primary encounter diagnosis) Comment: Glycemic control is poor. Issues with cost of SGLT1 and GLP1's. Needs to use mixed insulinbecause he cannot take meal insulin into longterm he works at. Plan: HEMOGLOBIN A1C (POC), [...] which included preparing to see the patient, aqjd-pi-atso patient care, completing clinical documentation, obtaining and/or reviewing separately obtained history, performing a medically appropriate examination, counseling and educating the pat ient/family/caregiver, ordering medications, tests, or procedures, and communicating results to thepatient/family/caregiver. Torres Monaco, MSN, HR BUSINESS PARTNER CONSULTANT, TIRE REBUILDER-C, CDE Endocrinology [facility] Office [facility]/[address] [place] [address] Fax: documented in this encounterDiley [facility]04-03-2023 Instructions* Patient Instructions* Dominik Kelley APRN.CNP - 01/09/2023 8:26 AM EDT Continue Ritalin Follow up in 3 months documented in this encounterDiley [facility] Center04-03-2023 History of Present illness Narrative* Dominik Kelley [...] disorder with single episode, in partial remission ([facility]) 09/26/2018 Migraine without aura and without status migrainosus, not intractable 09/11/2015 Mood disorder ([facility]) 03/31/2014 Multiple thyroid nodules 02/27/[address] Lazaro 03/2018 Multiple thyroid nodules 02/27/2018 US 03/2020 per radiology no further f/u needed.. All benign Biopsy 03/[address] Lazaro. Benign. Obesity, Class II, BMI 35-39.9 10/21/2022 Obstructive sleep apnea syndrome 01/27/2017 On CPAP Other joint derangement, not elsewhere classified, lower leg 03/25/2013 Primary insomnia 07/28/2020 QT prolongation 04/20/2021 Seen [facility] 04/19/2021: [place] to be benign and related to anti- depressants. No changes needed. TMJ (temporomandibular joint disorder) 03/31/2014 Right side Type 2 diabetes mellitus without complication, without long-term current use of insulin ([facility]) 01/19/2017 Well adult exam 12/17/2014 Last done:11/16/2019 [...] taken 3mg daily x 30 days) Insulin [place], Disposable, (BD ULTRAFINE III MINI PEN) 31 gauge x 16 Use two pen needles daily albuterol HFA [...] patient's choice. LIFETIME SUPPLIES.SD Card. Download to [employer]. multivitamin tablet Take 1 tablet by mouth once daily. fluticasone (FLONASE) 50 mcg/actuation nasal spray Use 1 [place] in each nostril once daily. Rinse mouth [...] MG BIPHASIC 50-50 CAPSULE,EXTENDED RELEASE Dominik Kelley APRN.KITMAN documented in this encounterDiley [facility] Center03-02-2023 Miscellaneous Notes* Telephone Encounter - Gissel Spears [...] diet and increased exercise. documented in this encounterDiley Ridge [facility] of Present illness Narrative* Humberto Jackson [...] going to try to get transferred to [facility]> Has not worn his CPAP since before [...] disorder with single episode, in partial remission ([facility]) 09/26/2018 Migraine without aura and without status migrainosus, not intractable 09/11/2015 Mood disorder ([facility]) 03/31/2014 Multiple thyroid nodules 02/27/[address] Lazaro 03/2018 Multiple thyroid nodules 02/27/2018 US 03/2020 per radiology no further f/u needed.. All benign Biopsy 03/[address] Lazaro. Benign. Obstructive sleep apnea syndrome 01/27/2017 On CPAP Other joint derangement, not elsewhere classified, lower leg 03/25/2013 Primary insomnia 07/28/2020 QT prolongation 04/20/2021 Seen [facility] 04/19/2021: [place] to be benign and related to anti- depressants. No changes needed. TMJ (temporomandibular joint disorder) 03/31/2014 Right side Type 2 diabetes mellitus without complication, without long-term current use of insulin ([facility]) 01/19/2017 Well adult exam 12/17/2014 Last done:11/16/2019 [...] taken 3mg daily x 30 days) Insulin [place], Disposable, (BD ULTRAFINE III MINI PEN) 31 [...] patient's choice. LIFETIME SUPPLIES.SD Card. Download to [employer]. multivitamin tablet Take 1 tablet by mouth once daily. fluticasone (FLONASE) 50 mcg/actuation nasal spray Use 1 [place] in each nostril once daily. Rinse mouth [...] Abs Lymph 1.00 - 4.00 k/uL 3.03 Isabella% % 6.3 Abs Isabella <0.87 k/uL 0.48 Eosin% % 1.4 Abs [...] routine Humberto Jackson MD documented in this encounterDiley [facility] Center01-20-2023 Miscellaneous Notes* Telephone Encounter - Gwen Herbert Hi - 10/28/2022 3:34 PM EST Images from the original note were not included. APPROVED Approved [id number] Prior authorization approved Payer: Abdulaziz CLAY Case: [id number], Status: Approved, Coverage Starts on: 10/28/2022 12:00:00 AM, Coverage Ends on: 10/28/2023 12:00:00 AM. Approval Details Authorization number: [id number] Authorized from October 28, 2022 to October [...] to its destination. To be filled at: [id number] [place] [address] - [id number] Pharmacy Benefits BIANCA DELAROSA BB CDH-N [id number] ([facility]) Covered: Retail, Mail Order, Specialty Unknown: Long-Term Care Group ID: [id number] Group name: [facility] BIN: [id number] PCN: WG : [id number] Legal sex: M Address: [address] [place] [address] documented in this encounterDiley [facility] Center11-22-2022 Nurse Note* Tami Olsen RN - 08/30/2022 8:02 AM EST Arrived in phase II via cart in left lateral position, eyes closed, skin warm and dry, responds to verbal stimuli, denies pain or nausea, abdomen soft and non distended. Oxygen saturation 88-90% on room air upon arrival, oxygen applied per NC 2L, continues to rest comfortably on left side. documented in this [facility]11-22-2022 History and physical note * Johanna Bliss [...] SIGNATURE: Johanna Bliss MD PATIENT NAME: Bianca Crookpio DATE: August 30, 2022 TIME: 7:09 AM Source Note - Johanna Bliss MD - 08/30/2022 7:30 AM EST HISTORY AND PHYSICAL Bianca Saenz Al 1975 REFERRING PHYSICIAN: Humberto Jackson MD CHIEF COMPLAINT: Consult (Colonoscopy consult, last colon 2016-repeat in 5 years) HPI: The patient is [...] Primary insomnia 07/28/2020 QT prolongation 04/20/2021 Seen [facility] 04/19/2021: [place] to be benign and related to anti- depressants. No changes needed. TMJ (temporomandibular joint disorder) 03/31/2014 Right side Type 2 diabetes mellitus without complication, without long-term current use of insulin ([facility]) 01/19/2017 Well adult exam 12/17/2014 Last done:11/16/2019 [...] units breakfast and 25 units dinner Insulin [place], Disposable, (BD ULTRAFINE III MINI PEN) 31 [...] (FLONASE) 50 mcg/actuation nasal spray Use 1 [place] in each nostril once daily. Rinse mouth after use. esomeprazole (NEXIUM) 40 mg capsule Take 40 mg by mouth once daily. CPAP AUTO PAP 5-20 cmH20, CHIN STRAP, heated HUMIDITY, mask of patient's choice. LIFETIME SUPPLIES.SD Card. Download to [employer]. (Patient not taking: Reported on 07/22/2022) ALLERGIES: [...] entered by the nurse and reviewed by ct Nursing Notes: Nunu Blackwood RN 07/22/2022 4:32 [...] 7:30 AM EST HISTORY AND PHYSICAL Bianca Delarosa 1975 REFERRING PHYSICIAN: Humberto Jackson MD CHIEF [...] Primary insomnia 07/28/2020 QT prolongation 04/20/2021 Seen [facility] 04/19/2021: [place] to be benign and related to anti- depressants. No changes needed. TMJ (temporomandibular joint disorder) 03/31/2014 Right side Type 2 diabetes mellitus without complication, without long-term current use of insulin ([facility]) 01/19/2017 Well adult exam 12/17/2014 Last done:11/16/2019 [...] units breakfast and 25 units dinner Insulin [place], Disposable, (BD ULTRAFINE III MINI PEN) 31 [...] (FLONASE) 50 mcg/actuation nasal spray Use 1 [place] in each nostril once daily. Rinse mouth after use. esomeprazole (NEXIUM) 40 mg capsule Take 40 mg by mouth once daily. CPAP AUTO PAP 5-20 cmH20, CHIN STRAP, heated HUMIDITY, mask of patient's choice. LIFETIME SUPPLIES.SD Card. Download to [employer]. (Patient not taking: Reported on 07/22/2022) ALLERGIES: [...] entered by the nurse and reviewed by ct Nursing Notes: Nunu Blackwood RN 07/22/2022 4:32 [...] diagnosis) Johanna Bliss MD documented in this encounterDiley [facility] Center11-09-2022 History of Present illness Narrative* Kenyatta Castaneda PA-C - 08/17/2022 12:48 PM EST Chief Complaint Patient presents with: Recheck: trinh AMARAL Bianca Delarosa is a 46 year old [...] disorder with single episode, in partial remission ([facility]) 09/26/2018 Migraine without aura and without status migrainosus, not intractable 09/11/2015 Mood disorder ([facility]) 03/31/2014 Multiple thyroid nodules 02/27/[address] Lazaro 03/2018 Multiple thyroid nodules 02/27/2018 US 03/2020 per radiology no further f/u needed.. All benign Biopsy 03/[address] Lazaro. Benign. Obstructive sleep apnea syndrome 01/27/2017 On CPAP Other joint derangement, not elsewhere classified, lower leg 03/25/2013 Primary insomnia 07/28/2020 QT prolongation 04/20/2021 Seen [facility] 04/19/2021: [place] to be benign and related to anti- depressants. No changes needed. TMJ (temporomandibular joint disorder) 03/31/2014 Right side Type 2 diabetes mellitus without complication, without long-term current use of insulin ([facility]) 01/19/2017 Well adult exam 12/17/2014 Last done:11/16/2019 [...] units breakfast and 25 units dinner Insulin [place], Disposable, (BD ULTRAFINE III MINI PEN) 31 [...] (FLONASE) 50 mcg/actuation nasal spray Use 1 [place] in each nostril once daily. Rinse mouth after use. esomeprazole (NEXIUM) 40 mg capsule Take 40 mg by mouth once daily. CPAP AUTO PAP 5-20 cmH20, CHIN STRAP, heated HUMIDITY, mask of patient's choice. LIFETIME SUPPLIES.SD Card. Download to [employer]. (Patient not taking: Reported on 07/22/2022) No [...] SURGERY Kenyatta Castaneda PA-C documented in this encounterDiley [facility] Center11-03-2022 History of Present illness Narrative* Kenyatta Castaneda [...] Primary insomnia 07/28/2020 QT prolongation 04/20/2021 Seen [facility] 04/19/2021: [place] to be benign and related to anti- [...] units breakfast and 25 units dinner Insulin [place], Disposable, (BD ULTRAFINE III MINI PEN) 31 [...] (FLONASE) 50 mcg/actuation nasal spray Use 1 [place] in each nostril once daily. Rinse mouth after use. esomeprazole (NEXIUM) 40 mg capsule Take 40 mg by mouth once daily. CPAP AUTO PAP 5-20 cmH20, CHIN STRAP, heated HUMIDITY, mask of patient's choice. LIFETIME SUPPLIES.SD Card. Download to [employer]. (Patient not taking: Reported on 07/22/2022) No [...] 6 MO - 64 YRS IM - PFIZER-BIONTECH COVID-19 BIVALENT BOOSTER VACCINE, AGE 12+ YR Kenyatta Castaneda PA-C documented in this encounterDiley Ridge Medical Center10-28-2022 Miscellaneous Notes* Telephone Encounter - Tam Daugherty MA - 08/05/2022 8:04 AM EDT Sarah You scheduled next week for a follow up with your. Patient was seen yesterday in . Tam Daugherty MA documented in this encounterDiley Ridge Medical Center10-27-2022 History of Present illness Narrative* Emma Sheets APRN.KITMAN - 08/04/2022 9:43 AM EDT SUBJECTIVE: Bianca [...] Primary insomnia 07/28/2020 QT prolongation 04/20/2021 Seen [facility] 04/19/2021: [place] to be benign and related to anti- depressants. No changes needed. TMJ (temporomandibular joint disorder) 03/31/2014 Right side Type 2 diabetes mellitus without complication, without long-term current use of insulin ([facility]) 01/19/2017 Well adult exam 12/17/2014 Last done:11/16/2019 [...] 25 units dinner 15 mL 5 Insulin [place], Disposable, (BD ULTRAFINE III MINI PEN) 31 gauge x 3/16 Use two pen needles [id number] Each 3 Fenofibrate (LOFIBRA) 54 mg tablet [...] (FLONASE) 50 mcg/actuation nasal spray Use 1 [place] in each nostril once daily. Rinse mouth after use. 1 Bottle 11 esomeprazole (NEXIUM) 40 mg capsule Take 40 mg by mouth once daily. CPAP AUTO PAP 5-20 cmH20, CHIN STRAP, heated HUMIDITY, mask of patient's choice. LIFETIME SUPPLIES.SD Card. Download to [employer]. (Patient not taking: Reported on 07/22/2022) 1 [...] was a pleasure to take care of iBanca Delarosa today. A large amount of purulent [...] L02.91 Emma Sheets APRN.CHRISTOPHER documented in this encounterDiley Ridge Medical Center10-12-2022 History of Present illness Narrative* Heather Garcia LPN - 07/20/2022 10:42 AM EDT Patient presents for Hepatitis B vaccine. Denies any problems at this time. Tolerated injection well. Heather Garcia LPN documented in this encounterDiley Ridge Medical Center09-02-2022 History of Present illness Narrative* Heather Garcia LPN - 06/10/2022 3:43 PM EDT Patient presents for Hepatitis B vaccine. Denies any problems at this time. Tolerated injection well. Heather Garcia LPN documented in this [facility]08-30-2022 Instructions* Patient Instructions* Torres Monaco APRN.CNP - 06/07/2022 8:11 AM EDT Stop glimepiride 2. Stop lantus. 3. Continue metformin . 4. Start humalog 75/25 taking: Breakfast 25 units Dinner 25 units 5. Check sugar 2 x per day-- breakfast and dinner and occasionally before bedtime. 6. Send me sugars every 2 wks. Sooner if needed. 7. 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 He is under the care of cardiology, cedrick. His current diabetes regimen is: Glimepiride 4 [...] status migrainosus, not intractable 09/11/2015 Mood disorder ([facility]) 03/31/2014 Multiple thyroid nodules 02/27/[address] Lazaro 03/2018 Multiple thyroid nodules 02/27/2018 US 03/2020 per radiology no further f/u needed.. All benign Biopsy 03/[address] Lazaro. Benign. Obstructive sleep apnea syndrome 01/27/2017 On CPAP Other joint derangement, not elsewhere classified, lower leg 03/25/2013 Primary insomnia 07/28/2020 QT prolongation 04/20/2021 Seen [facility] 04/19/2021: [place] to be benign and related to anti- depressants. No changes needed. TMJ (temporomandibular joint disorder) 03/31/2014 Right side Type 2 diabetes mellitus without complication, without long-term current use of insulin ([facility]) 01/19/2017 Well adult exam 12/17/2014 Last done:11/16/2019 [...] daily with breakfast. 90 tablet 3 Insulin [place], Disposable, (BD ULTRAFINE III MINI PEN) 31 gauge x 3/16 Use one pen needles [id number] Each 3 albuterol HFA (PROAIR HFA) 90 [...] (FLONASE) 50 mcg/actuation nasal spray Use 1 [place] in each nostril once daily. Rinse mouth [...] patient's choice. LIFETIME SUPPLIES.SD Card. Download to [employer]. (Patient not taking: No sig reported) 1 [...] complication, without long-term current use of insulin ([facility]) (primary encounter diagnosis) Comment: Glycemic control is poor. SGLT2 and GLP1 are cost prohibitive. He cannot take a prandial insulin into work with him a a longterm. Will switch to mixed insulin. We reviewed the timing of injections in relation to meals and when to check BG levels. Advised he is to ensure he is eating when taking the insulin to avoid hypoglycemia. Plan: insulin lispro protamine-insulin lispro (HumaLOG 75/25) pen, Insulin [place], Disposable, (BD ULTRAFINE III MINI PEN) 31 [...] Level: 3 - Low Torres Monaco, MSN, HR BUSINESS PARTNER CONSULTANT, TIRE REBUILDER-C, CDE Endocrinology [facility]/[address], [address] [place] [address] Fax: documented in this encounterDiley Ridge Medical Center08-29-2022 Miscellaneous Notes* Telephone Encounter - Tam Daugherty [...] ok except spilling sugar. documented in this encounterDiley Ridge Medical Center08-27-2022 History of Present illness Narrative* Humberto Jackson [...] disorder with single episode, in partial remission ([facility]) 09/26/2018 Migraine without aura and without status migrainosus, not intractable 09/11/2015 Mood disorder ([facility]) 03/31/2014 Multiple thyroid nodules 02/27/[address] Lazaro 03/2018 Multiple thyroid nodules 02/27/2018 US 03/2020 per radiology no further f/u needed.. All benign Biopsy 03/[address] Lazaro. Benign. Obstructive sleep apnea syndrome 01/27/2017 On CPAP Other joint derangement, not elsewhere classified, lower leg 03/25/2013 Primary insomnia 07/28/2020 QT prolongation 04/20/2021 Seen [facility] 04/19/2021: [place] to be benign and related to anti- depressants. No changes needed. TMJ (temporomandibular joint disorder) 03/31/2014 Right side Type 2 diabetes mellitus without complication, without long-term current use of insulin ([facility]) 01/19/2017 Well adult exam 12/17/2014 Last done:11/16/2019 [...] tablet by mouth daily with breakfast. Insulin [place], Disposable, (BD ULTRAFINE III MINI PEN) 31 gauge x 316 Use one pen needles daily albuterol HFA [...] (FLONASE) 50 mcg/actuation nasal spray Use 1 [place] in each nostril once daily. Rinse mouth [...] patient's choice. LIFETIME SUPPLIES.SD Card. Download to [employer]. (Patient not taking: Reported on 03/04/2021 ) [...] routine Humberto Jackson MD documented in this encounterDiley Ridge Medical Center07-21-2022 Miscellaneous Notes* Telephone Encounter - Juhi Charles RN - 04/28/2022 8:51 AM EDT Patient [...] capsule by mouth once daily. TAMIKO: No HIMA-10/15/21 Labs-04/13/21 NOV-none meds filled 01/05/22 Please review and advise. Dimple Castellon LPN documented in this encounterDiley Ridge Medical Center07-21-2022 Miscellaneous Notes* Telephone Encounter - Aneta Calvin RN - 04/28/2022 7:49 AM EDT Please review. Patient is referring to [facility]. documented in this encounterDiley Ridge Medical Center07-20-2022 Miscellaneous Notes* Telephone Encounter - Humberto Jackson [...] none Tia Ibarra Ma documented in this encounterDiley Ridge Medical Center05-27-2022 Instructions* Patient Instructions* Torres Monaco APRN.CHRISTOPHER - 03/04/2022 8:42 AM EDT 1. Continue glimepiride, jardiance, metformin. 2. Continue lantus 40 units daily at bedtime. 3. Stop humalog 4. Start ozempic 0.25 mg weekly x 4 wks then increase to 0.5 mg weekly. 5. 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 Reports always feeling hungry. History in addition to diabetes:dyslipidemia, ISABELLA, GERD, depression, migraine, thyroid nodules, MIKE, obesity He is under the care of cardiology, ortho. Had his knee surgery at [facility]. Walks about a mile per day. [...] Primary insomnia 07/28/2020 QT prolongation 04/20/2021 Seen [facility] 04/19/2021: [place] to be benign and related to anti- depressants. No changes needed. TMJ (temporomandibular joint disorder) 03/31/2014 Right side Type 2 diabetes mellitus without complication, without long-term current use of insulin ([facility]) 01/19/2017 Well adult exam 12/17/2014 Last done:11/16/2019 [...] 35 units daily 45 mL 3 Insulin [place], Disposable, (BD ULTRAFINE III MINI PEN) 31 [...] (FLONASE) 50 mcg/actuation nasal spray Use 1 [place] in each nostril once daily. Rinse mouth after use. 1 Bottle 11 esomeprazole (NEXIUM) 40 mg capsule Take 40 mg by mouth once daily. CPAP AUTO PAP 5-20 cmH20, CHIN STRAP, heated HUMIDITY, mask of patient's choice. LIFETIME SUPPLIES.SD Card. Download to [employer]. (Patient not taking: Reported on 03/04/2021 ) [...] (HCC) (primary encounter diagnosis) Comment: Glycemic control has worsened. We were using prandial insulin previously in order to improve his BG so he could have knee surgery which has been done. Will add GLP-1. Risks and benefits reviewed. He is limited on what supplies/medications he can take into the longterm he works at. Patient agrees to start [...] tablet, glimepiride (AMARYL) 4 mg tablet, Insulin [place], Disposable, (BD ULTRAFINE III MINI PEN) 31 [...] Level: 4 - Moderate Torres Monaco APRN, TIRE REBUILDER-C, CDE Endocrinology [facility]/[address], [address] [place], [place] [address] Fax: documented in this encounterDiley Ridge Medical Center04-26-2022 Miscellaneous Notes* Telephone Encounter - Berkley Dubon [...] advise. Regina Parrish MA documented in this encounterDiley Ridge Medical Center03-30-2022 Miscellaneous Notes* Telephone Encounter - Humberto Jackson [...] appointment. Carmelo Lopez LPN documented in this encounterDiley Ridge Medical Center03-30-2022 Miscellaneous Notes* Telephone Encounter - Carmelo Lopez LPN - 01/05/2022 12:27 PM EDT Med request was combined with pt's other medication request and sent to pcp. Carmelo Lopez LPN documented in this encounterDiley Ridge Medical Center01-07-2022 History of Present illness Narrative* Roro Feliciano [...] 15, 2021 8:32 AM documented in this encounterDiley Ridge Medical Center01-13-2021 History of Past illness Narrative* Problem Noted Date Resolved Date Joint stiffness of right lower leg 10/21/2020 12/22/2020 Right leg weakness 10/21/2020 12/22/2020 documented as of this encounter (statuses as of 01/05/2022) [place] [address]-13-2021 History of Past illness Narrative* Problem Noted Date Resolved Date Joint stiffness of right lower leg 10/21/2020 12/22/2020 Right leg weakness 10/21/2020 12/22/2020 documented as of this encounter (statuses as of 01/05/2022) [facility] of Past illness Narrative* Problem Noted Date Resolved Date Joint stiffness of right lower leg 10/21/2020 12/22/2020 Right leg weakness 10/21/2020 12/22/2020 documented as of this encounter (statuses as of 02/01/2022) [address]13-2021 History of Past illness Narrative* Problem Noted Date Resolved Date Joint stiffness of right lower leg 10/21/2020 12/22/2020 Right leg weakness 10/21/2020 12/22/2020 documented as of this encounter (statuses as of 03/04/2022) [address]13-2021 History of Past illness Narrative* Problem Noted Date Resolved Date Joint stiffness of right lower leg 10/21/2020 12/22/2020 Right leg weakness 10/21/2020 12/22/2020 documented as of this encounter (statuses as of 04/28/2022) [address]13-2021 History of Past illness Narrative* Problem Noted Date Resolved Date Joint stiffness of right lower leg 10/21/2020 12/22/2020 Right leg weakness 10/21/2020 12/22/2020 documented as of this encounter (statuses as of 04/28/2022) [address]13-2021 History of Past illness Narrative* Problem Noted Date Resolved Date Joint stiffness of right lower leg 10/21/2020 12/22/2020 Right leg weakness 10/21/2020 12/22/2020 documented as of this encounter (statuses as of 04/28/2022) [address]13-2021 History of Past illness Narrative* Problem Noted Date Resolved Date Joint stiffness of right lower leg 10/21/2020 12/22/2020 Right leg weakness 10/21/2020 12/22/2020 documented as of this encounter (statuses as of 06/05/2022) [address]13-[address]21 History of Past illness Narrative* Problem Noted Date Resolved Date Joint stiffness of right lower leg 10/21/2020 12/22/2020 Right leg weakness 10/21/2020 12/22/2020 documented as of this encounter (statuses as of 06/06/2022) [address]13-2021 History of Past illness Narrative* Problem Noted Date Resolved Date Joint stiffness of right lower leg 10/21/2020 12/22/2020 Right leg weakness 10/21/2020 12/22/2020 documented as of this encounter (statuses as of 06/07/2022) [address]13-[address]21 History of Past illness Narrative* Problem Noted Date Resolved Date Joint stiffness of right lower leg 10/21/2020 12/22/2020 Right leg weakness 10/21/2020 12/22/2020 documented as of this encounter (statuses as of 06/10/2022) [address]13-[address]21 History of Past illness Narrative* Problem Noted Date Resolved Date Joint stiffness of right lower leg 10/21/2020 12/22/2020 Right leg weakness 10/21/2020 12/22/2020 documented as of this encounter (statuses as of 07/20/2022) [address]13-2021 History of Past illness Narrative* Problem Noted Date Resolved Date Joint stiffness of right lower leg 10/21/2020 12/22/2020 Right leg weakness 10/21/2020 12/22/2020 documented as of this encounter (statuses as of 08/04/2022) [facility] of [facility] illness Narrative* Problem Noted Date Resolved Date Joint stiffness of right lower leg 10/21/2020 12/22/2020 Right leg weakness 10/21/2020 12/22/2020 documented as of this encounter (statuses as of 08/04/2022) [facility] of [facility] illness Narrative* Problem Noted Date Resolved Date Joint stiffness of right lower leg 10/21/2020 12/22/2020 Right leg weakness 10/21/2020 12/22/2020 documented as of this encounter (statuses as of 08/05/2022) [facility] illness Narrative* Problem Noted Date Resolved Date Joint stiffness of right lower leg 10/21/2020 12/22/2020 Right leg weakness 10/21/2020 12/22/2020 documented as of this encounter (statuses as of 08/11/2022) [facility] Narrative* Problem Noted Date Resolved Date Joint stiffness of right lower leg 10/21/2020 12/22/2020 Right leg weakness 10/21/2020 12/22/2020 documented as of this encounter (statuses as of 08/17/2022) [facility] of [facility] illness Narrative* Problem Noted Date Resolved Date Joint stiffness of right lower leg 10/21/2020 12/22/2020 Right leg weakness 10/21/2020 12/22/2020 documented as of this encounter (statuses as of 10/28/2022) [facility]01-13-2021 History of Past illness Narrative* Problem Noted Date Resolved Date Joint stiffness of right lower leg 10/21/2020 12/22/2020 Right leg weakness 10/21/2020 12/22/2020 documented as of this encounter (statuses as of 12/07/2022) [facility]01-13-2021 History of Past illness Narrative* Problem Noted Date Resolved Date Joint stiffness of right lower leg 10/21/2020 12/22/2020 Right leg weakness 10/21/2020 12/22/2020 documented as of this encounter (statuses as of 12/08/2022) [facility]01-13-2021 History of Past illness Narrative* Problem Noted Date Resolved Date Joint stiffness of right lower leg 10/21/2020 12/22/2020 Right leg weakness 10/21/2020 12/22/2020 documented as of this encounter (statuses as of 01/09/2023) [facility]13-2021 History of Past illness Narrative* Problem Noted Date Resolved Date Joint stiffness of right lower leg 10/21/2020 12/22/2020 Right leg weakness 10/21/2020 12/22/2020 documented as of this encounter (statuses as of 01/28/2023) [facility]13-2021 History of Past illness Narrative* Problem Noted Date Resolved Date Joint stiffness of right lower leg 10/21/2020 12/22/2020 Right leg weakness 10/21/2020 12/22/2020 documented as of this encounter (statuses as of 03/15/2023) [facility]13-2021 History of Past illness Narrative* Problem Noted Date Resolved Date Joint stiffness of right lower leg 10/21/2020 12/22/2020 Right leg weakness 10/21/2020 12/22/2020 documented as of this encounter (statuses as of 03/15/2023) [facility]13[facility]2021 History of Past illness Narrative* Problem Noted Date Resolved Date Joint stiffness of right lower leg 10/21/2020 12/22/2020 Right leg weakness 10/21/2020 12/22/2020 documented as of this encounter (statuses as of 03/28/2023) [facility]2021 History of Past illness Narrative* Problem Noted Date Resolved Date Joint stiffness of right lower leg 10/21/2020 12/22/2020 Right leg weakness 10/21/2020 12/22/2020 documented as of this encounter (statuses as of 04/10/2023) [facility]2021 History of Past illness Narrative* Problem Noted Date Resolved Date Joint stiffness of right lower leg 10/21/2020 12/22/2020 Right leg weakness 10/21/2020 12/22/2020 documented as of this encounter (statuses as of 04/14/2023) [facility]2021 History of Past illness Narrative* Problem Noted Date Resolved Date Joint stiffness of right lower leg 10/21/2020 12/22/2020 Right leg weakness 10/21/2020 12/22/2020 documented as of this encounter (statuses as of 04/14/2023) [facility]21 History of Past illness Narrative* Problem Noted Date Diagnosed Date Resolved Date Joint stiffness of right lower leg 10/21/2020 12/22/2020 Right leg weakness 10/21/2020 documented as of this encounter (statuses as of 06/05/2023) [facility]21 History of Past illness Narrative* Problem Noted Date Diagnosed Date Resolved Date Joint stiffness of right lower leg 10/21/2020 12/22/2020 Right leg weakness 10/21/2020 documented as of this encounter (statuses as of 06/05/2023) [facility]21 History of Past illness Narrative* Problem Noted Date Diagnosed Date Resolved Date Joint stiffness of right lower leg 10/21/2020 12/22/2020 Right leg weakness 10/21/2020 documented as of this encounter (statuses as of 07/18/2023) [facility]21 History of Past illness Narrative* Problem Noted Date Diagnosed Date Resolved Date Joint stiffness of right lower leg 10/21/2020 12/22/2020 Right leg weakness 10/21/2020 documented as of this encounter (statuses as of 08/11/2023) [facility]21 History of Past illness Narrative* Problem Noted Date Diagnosed Date Resolved Date Joint stiffness of right lower leg 10/21/2020 12/22/2020 Right leg weakness 10/21/2020 documented as of this encounter (statuses as of 08/24/2023) [facility]2021 History of Past illness Narrative* Problem Noted Date Diagnosed Date Resolved Date Joint stiffness of right lower leg 10/21/2020 12/22/2020 Right leg weakness 10/21/2020 1 documented as of this encounter (statuses as of 09/07/2023) [facility]2021 History of Past illness Narrative* Problem Noted Date Diagnosed Date Resolved Date Joint stiffness of right lower leg 10/21/2020 12/22/2020 Right leg weakness 10/21/2020 1 documented as of this encounter (statuses as of 09/12/2023) [facility]21 History of Past illness Narrative* Problem Noted Date Diagnosed Date Resolved Date Joint stiffness of right lower leg 10/21/2020 12/22/2020 Right leg weakness 10/21/2020 1 documented as of this encounter (statuses as of 11/29/2023) [facility]13[facility]2021 History of Past illness Narrative* Problem Noted Date Diagnosed Date Resolved Date Joint stiffness of right lower leg 10/21/2020 12/22/2020 Right leg weakness 10/21/2020 1 documented as of this encounter (statuses as of 12/01/2023) [facility]21 History of Past illness Narrative* Problem Noted Date Diagnosed Date Resolved Date Joint stiffness of right lower leg 10/21/2020 12/22/2020 Right leg weakness 10/21/2020 1 documented as of this encounter (statuses as of 12/08/2023) [facility] History of Past illness Narrative* Problem Noted Date Diagnosed Date Resolved Date Joint stiffness of right lower leg 10/21/2020 12/22/2020 Right leg weakness 10/21/2020 1 documented as of this encounter (statuses as of 12/08/2023) [facility] History of Past illness Narrative* Problem Noted Date Diagnosed Date Resolved Date Joint stiffness of right lower leg 10/21/2020 12/22/2020 Right leg weakness 10/21/2020 1 documented as of this encounter (statuses as of 12/15/2023) [facility]21 History of Past illness Narrative* Problem Noted Date Diagnosed Date Resolved Date Joint stiffness of right lower leg 10/21/2020 12/22/2020 Right leg weakness 10/21/2020 documented as of this encounter (statuses as of 12/16/2023) [address]13-2021 History of Past illness Narrative* Problem Noted Date Diagnosed Date Resolved Date Joint stiffness of right lower leg 10/21/2020 12/22/2020 Right leg weakness 10/21/2020 1 documented as of this encounter (statuses as of 01/17/2024) [facility]13[facility]2021 History of Past illness Narrative* Problem Noted Date Diagnosed Date Resolved Date Joint stiffness of right lower leg 10/21/2020 12/22/2020 Right leg weakness 10/21/2020 1 documented as of this encounter (statuses as of 01/18/2024) [facility]13[facility]2021 History of Past illness Narrative* Problem Noted Date Diagnosed Date Resolved Date Joint stiffness of right lower leg 10/21/2020 12/22/2020 Right leg weakness 10/21/2020 1 documented as of this encounter (statuses as of 01/20/2024) [facility]2021 History of Past illness Narrative* Problem Noted Date Diagnosed Date Resolved Date Joint stiffness of right lower leg 10/21/2020 12/22/2020 Right leg weakness 10/21/2020 1 documented as of this encounter (statuses as of 01/24/2024) [address]13-2021 History of Past illness Narrative* Problem Noted Date Diagnosed Date Resolved Date Joint stiffness of right lower leg 10/21/2020 12/22/2020 Right leg weakness 10/21/2020 1 documented as of this encounter (statuses as of 01/25/2024) [facility]01-12-2021 History of Present illness Narrative* Tami Stinson (Rt), Tech - 10/20/2020 9:15 AM EST Radiology Service [...] 20, 2020 10:16 AM [facility] Author Prince Villanueva [facility] April 15, 2023 12:06pm Note Date/Time April 15, 2023 10:55 am [facility] Medical Records Department [address] [place] [id number] Discharge Summary 04/15/23 1055 MR#: [id number] Acct: [id number] Name: BIANCA DELAROSA Rep #:[id number] : 1975 47 From: Prince Blanton PCP: Dr. Humberto Jackson MD Status:ADM KEY[place] Location: [place] [address] Providers Date of Admission: 04/14/23 Primary Care [...] % (Auto) 73.5 H, Lymph % (Auto) 19.3,Isabella % (Auto) 5.8, Eos % (Auto) 0.6, [...] 8.9 04/14/23 20:25: POC Glucose 252 H 07/07/23 23:07: POC Glucose 404 H 04/15/23 05:35: WBC 7.3, RBC 4.26 L, Hgb 13.5, Hct 39.4 L, MCV 92.5, MCH 31.7, MCHC 34.3, RDW Std Deviation 39.8, RDW Coeff of Katie 11.8, Plt Count 172, MPV 13.2 H, Immature Gran % (Auto) 0.300, Neut % (Auto) 69.4, Lymph % (Auto) 20.5, Isabella % (Auto) 7.8, Eos % (Auto) 1.5, Baso % (Auto) 0.5, Absolute Neuts (auto) 5.1, Absolute Lymphs (auto) 1.50, Nucleated RBC % 0 04/15/23 06:15: POC Glucose 332 H Radiography Diagnostic Testing: Radiology Impression Pelvis CT 04/14/23 14:13 IMPRESSION: (NOT LISTED IN ORDER OF SIGNIFICANCE) Left preston anal abscess is 32 x 22 x [...] Self Care Charges/Coding Visit Charges Inpatient E&M: 38424 Disch Hosp 04/15/23 1206 <Electronically signed by Prince Villanueva MD> Cosigner Signature (if applicable): CC: Dr. Humberto Jackson MD; Dr. Prince Villanueva MD~ Signed [facility] Work Phone: Discharge summary Author Prince Villanueva [facility] April 15, 2023 11:01am Note Date/Time April 15, 2023 10:57 am [facility] Medical Records Department [address] [place] [id number] Instructions for Home/Discharge Instructions 04/15/23 1055 MR#: [id number] Acct: [id number] Name: BIANCA DELAROSA Rep #:[id number] : 1975 47 From: Prince Blanton PCP: [...] CC: Dr. Humberto Jackson MD ~ Signed [facility] Work Phone: Evaluation note* Diagnosis Type 2 diabetes mellitus without complication, without long-term current use of insulin (HCC)- Primary Dyslipidemia Other and unspecified hyperlipidemia Class 2 severe obesity with serious comorbidity and body mass index (BMI) of 39.0 to 39.9 in adult, unspecified obesity type (HCC) documented in this encounter [facility] note* Diagnosis Type 2 diabetes mellitus without complication, without long-term current use of insulin (HCC) documented in this encounter [facility] note* Diagnosis Type 2 diabetes mellitus without complication, without long-term current use of insulin (HCC)- Primary Well adult exam Routine general medical examination at a health care facility Diabetic eye exam ([facility]) Type II or unspecified type diabetes mellitus without mention of complication, not stated as uncontrolled Dyslipidemia Other and unspecified hyperlipidemia Migraine without aura and without status migrainosus, not intractable Migraine without aura, without mention of intractable migraine without mention of status migrainosus GERD without esophagitis Esophageal reflux ISABELLA (generalized anxiety disorder) Generalized anxiety disorder Major depressive disorder with single episode, in partial remission ([facility]) Mood disorder (HCC) Unspecified episodic mood disorder Obstructive sleep apnea syndrome Obstructive sleep apnea (adult) (pediatric) Primary insomnia Persistent disorder of initiating or maintaining sleep Allergic rhinitis, unspecified seasonality, unspecified trigger Need for hepatitis B screening test Medication management Encounter for long-term (current) use of other medications documented in this encounter [facility] note* Diagnosis Type 2 diabetes mellitus without complication, without long-term current use of insulin (HCC)- Primary Dyslipidemia Other and unspecified hyperlipidemia Class 2 severe obesity with serious comorbidity and body mass index (BMI) of 37.0 to 37.9 in adult, unspecified obesity type (HCC) documented in this encounter [facility] note* Diagnosis Need for vaccination- Primary Need for prophylactic vaccination and inoculation against unspecified single disease documented in this encounter [facility] note* Diagnosis Cellulitis of skin- Primary Cellulitis and abscess of unspecified site Abscess Cellulitis and abscess of unspecified site documented in this encounter [facility] note* Diagnosis Abscess of buttock- Primary Cellulitis and abscess of buttock Encounter for immunization Need for other specified prophylactic vaccination against single bacterial disease documented in this encounter [facility] note* Diagnosis Abscess of buttock- Primary Cellulitis and abscess of buttock Pilonidal cyst Pilonidal cyst without mention of abscess [facility]* Diagnosis Type 2 diabetes mellitus without complication, without long-term current use of insulin (HCC)- Primary Dyslipidemia Other and unspecified hyperlipidemia Diabetic eye exam ([facility]) Type II or unspecified type diabetes mellitus [...] disorder with single episode, in partial remission ([facility]) ISABELLA (generalized anxiety disorder) Generalized anxiety disorder Obstructive sleep apnea syndrome Obstructive sleep apnea (adult) (pediatric) Primary insomnia Persistent disorder of initiating or maintaining sleep Attention 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 Need for vaccination Need for prophylactic vaccination and inoculation against unspecified single disease Medication management Encounter for long-term (current) use of other medications [facility]* Diagnosis Attention 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 [facility]* Diagnosis Type 2 diabetes mellitus without complication, without long-term current use of insulin ([facility])- Primary Dyslipidemia Other and unspecified hyperlipidemia Multiple thyroid nodules Nontoxic multinodular goiter Obesity, Class II, BMI 35-39.9 Obesity, unspecified [facility]* Diagnosis Type 2 diabetes mellitus without complication, without long-term current use of insulin ([facility]) [facility]* Diagnosis Type 2 diabetes mellitus without complication, without long-term current use of insulin ([facility]) [facility]* Diagnosis Attention 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 [facility]* Diagnosis Migraine without aura and without [...] Generalized anxiety disorder [facility]* Diagnosis Onset Date Resolution Status Perirectal abscess acute [facility] Work Phone: Evaluation note* Diagnosis Abscess of buttock- Primary Cellulitis and abscess of buttock [facility]* Diagnosis Type 2 diabetes mellitus without complication, without long-term current use of insulin (HCC) [facility]* Diagnosis Attention 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 [facility]* Diagnosis Screening for colon cancer- Primary Special screening for malignant neoplasms, colon Family history of colon cancer in father [facility]* Diagnosis Type 2 diabetes mellitus without complication, without long-term current use of insulin (HCC) [facility]* Diagnosis Right foot pain Pain in soft tissues of limb documented in this encounter [facility] Work Phone: Evaluation note* Diagnosis Type 2 diabetes mellitus without complication, without long-term current use of insulin (HCC) [facility]* Diagnosis Well adult exam- Primary Routine [...] single bacterial disease [facility]* Diagnosis Attention 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- Primary [facility] Type 2 diabetes mellitus without complication, without long-term current use of insulin (HCC)- Primary Dyslipidemia Other and unspecified hyperlipidemia Multiple thyroid nodules Nontoxic multinodular goiter Obesity, Class II, BMI 35-39.9 Obesity, unspecified [facility] Type 2 diabetes mellitus without complication, without long-term current use of insulin (HCC) [facility] Diagnosis Multiple thyroid nodules- Primary Nontoxic multinodular goiter [facility]* Diagnosis Attention 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 [facility] Diagnosis Thyroid nodule- Primary Nontoxic uninodular goiter [facility] Diagnosis Non-toxic nodular goiter- Primary Unspecified nontoxic nodular goiter Multiple thyroid nodules Nontoxic multinodular goiter [facility] Diagnosis Attention 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 [facility] Diagnosis Attention 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 [facility] Acute pain of right shoulder- Primary Type 2 diabetes mellitus without complication, without long-term current use of insulin (HCC) Dyslipidemia Other and unspecified hyperlipidemia Multiple thyroid nodules Nontoxic multinodular goiter Medication management Encounter for long-term (current) use of other medications [facility] Diagnosis Migraine without aura and without [...] esophagitis Esophageal reflux [facility] Diagnosis Migraine without aura and without [...] of right shoulder [facility] Diagnosis Migraine without aura and without [...] of right shoulder [facility] Diagnosis Migraine without aura and without [...] (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 [facility] Diagnosis Migraine without aura and without [...] right shoulder- Primary [facility] Diagnosis Migraine without aura and without [...] anxiety disorder Cough [facility] Diagnosis Pain in both knees, unspecified [...] Generalized anxiety disorder [facility] Diagnosis Migraine without aura and without [...] Primary [facility] Diagnosis Migraine without aura and without [...] right shoulder- Primary [facility] Diagnosis Migraine without aura and without [...] (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 [facility] Diagnosis Migraine without aura and without [...] of other medications [facility] Diagnosis Migraine without aura and without [...] right shoulder- Primary [facility] Diagnosis Migraine without aura and without [...] and unspecified hyperlipidemia [facility] Diagnosis Migraine without aura and without [...] serum enzyme levels [facility]* Diagnosis Migraine without aura and without [...] serum enzyme levels [facility]* Diagnosis Migraine without aura and without [...] of insulin (HCC) [facility]* Diagnosis Migraine without aura and without [...] (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 [facility] Diagnosis Migraine without aura and without [...] right breast- Primary [facility] Diagnosis Migraine without aura and without [...] of other medications documented in this encounter [facility] note* Diagnosis Migraine without aura and without [...] of right breast [facility]* Diagnosis Migraine without aura and without [...] of right breast [facility] Diagnosis Migraine without aura and without [...] Hypertrophy of breast documented [facility] Diagnosis Migraine without aura and without [...] without hyperactivity- Primary [facility]* Diagnosis Migraine without aura and without [...] Unspecified endocrine disorder [facility] Diagnosis Migraine without aura and without [...] skull and head [facility]* Diagnosis Migraine without aura and without [...] craniopharyngeal duct (pouch) [facility] encounter [facility] Diagnosis Migraine without aura and without [...] Primary Routine general medical examination at a [facility] care facility Type 2 diabetes mellitus without complication, without long-term current use of insulin (HCC) Diabetic eye exam ([facility]) Type II or unspecified type diabetes mellitus [...] disorder with single episode, in partial remission ([facility]) Mood disorder (HCC) Unspecified episodic mood disorder Obesity, Class II, [...] Abnormal chest sounds [facility]* Diagnosis Migraine without aura and without status migrainosus, not intractable Migraine without aura, without mention of intractable migraine without mention of status migrainosus Obstructive sleep apnea syndrome Obstructive sleep apnea (adult) (pediatric) Mild intermittent extrinsic asthma without complication GERD without esophagitis Esophageal reflux Type 2 diabetes mellitus without complication, without long-term current use of insulin ([facility]) Dyslipidemia Other and unspecified hyperlipidemia ISABELLA (generalized anxiety disorder) Generalized anxiety disorder Abnormal lung sounds Abnormal chest sounds [facility] Diagnosis Migraine without aura and without status migrainosus, not intractable Migraine without aura, without mention of intractable migraine without mention of status migrainosus Obstructive sleep apnea syndrome Obstructive sleep apnea (adult) (pediatric) Mild intermittent extrinsic asthma without complication (HCC) GERD without esophagitis Esophageal reflux Type 2 diabetes mellitus without complication, without long-term current use of insulin ([facility]) Dyslipidemia Other and unspecified hyperlipidemia ISABELLA (generalized anxiety disorder) Generalized anxiety disorder Acute pain of right shoulder [facility] Diagnosis Migraine without aura and without [...] skull and head documented in this encounter [facility] note* Diagnosis Migraine without aura and without [...] of insulin (HCC) documented in this encounter [facility] note* Diagnosis Migraine without aura and without [...] (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 documented in this encounter [facility] note* Diagnosis Migraine without aura and without [...] apnea (adult) (pediatric) [facility] Diagnosis Migraine without aura and without [...] Dysphagia, pharyngoesophageal phase documented in this encounter [facility] note* Diagnosis Migraine without aura and without [...] Dysphagia, pharyngoesophageal phase [facility] Diagnosis Migraine without aura and without [...] Dysphagia, pharyngoesophageal phase documented in this encounter [facility] note* Diagnosis Migraine without aura and without [...] Dysphagia, pharyngoesophageal phase documented [facility] Diagnosis Migraine without aura and without [...] Dysphagia, pharyngoesophageal phase documented in this encounter [facility] note* Diagnosis Migraine without aura and without [...] phase [facility] Diagnosis Migraine without aura and without [...] phase [facility]* Diagnosis Migraine without aura and without [...] Dysphagia, pharyngoesophageal phase documented in this encounter [facility] note* Diagnosis Migraine without aura and without [...] Dysphagia, pharyngoesophageal phase documented in this encounter [facility] Author Prince Villanueva [facility] April 14, 2023 5:05pm Note Date/Time April 14, 2023 4:55p [facility] Medical Records Department [address] [place] [address] History & Physical Exam 04/14/23 1651 MR#: [id number] Acct: [id number] Name: BIACNA DELAROSA Rep #:[id number] : 1975 47 From: Prince [place] PCP: Dr. Humberto Jackson MD Status:[facility] Location: [facility] A-2 HPI - General General Date of Service: 04/14/23 HPI Narrative BIANCA DELAROSA, is a 47 M who presents to [facility] ER under direction from his PCP after [...] last year and was without remarkable findings. [facility] Medical History (Updated 04/14/23 @ 17:03 by [...] % (Auto) 73.5 H, Lymph % (Auto) 19.3,Isabella % (Auto) 5.8, Eos % (Auto) 0.6, [...] and drainage. Charges/Coding Visit Charges Inpatient E&M: 67171 Init Hosp L2 04/14/23 1705 <Electronically signed by Prince Villanueva MD> Cosigner Signature (if applicable): CC: Dr. Humberto Jackson MD; Dr. Prince Villanueva MD~ Signed [facility] Work Phone: [facility] for referral (narrative)* Outpatient Procedure (Routine) - Closed Specialty Diagnoses / Procedures Referred By Contac t Referred To Contact [facility] Diagnoses Family history of colon cancer in father Procedures COLONOSCOPY SCREENING COLONOSCOPY FLX DX W/COLLJ SPEC WHEN Johanna Sena MD [address] [place] [address] [facility] [address] [place] [address] Referral ID Status Reason Start Date Expiration Date V isits Requested Visits Authorized [id number] Closed Auto-Generate d Referral 07/22/2022 07/22/2023 1 1 [facility] for referral (narrative)* Diagnostic Procedure Only (Routine) - Closed Specialty Diagnoses / Procedures Referred By Contac t Referred To Contact [facility] IMAG[facility] Diagnoses Acute pain of right shoulder Procedures XR SHOULDER GENERAL 3V OR MORE AP/TRUE AP/OTHER RIGHT RADEX SHOULDER COMPLETE MINIMUM 2 VIEWS Dominik Kelley, GHULAM.KITMAN [address] [place] [address] [place] [address] Referral ID Status Reason Start Date Expiration Date V isits Requested Visits Authorized [id number] Closed Auto-Generate d Referral 05/21/2024 06/20/2025 1 1 [facility] for referral (narrative)* Diagnostic Procedure Only (Routine) - Closed Specialty Diagnoses / Procedures Referred By Contac t Referred To Contact [facility] Diagnoses Elevated alkaline phosphatase level Procedures US ABD RIGHT UPPER QUADRANT US ABDOMINAL REAL TIME W/IMAGE LIMITED Humberto Jackson MD [address] [place] [address] [facility] Imaging [id number] Referral ID Status Reason Start Date Expiration Date V isits Requested Visits Authorized [id number] Closed Auto-Generate d Referral 10/17/2024 11/16/2025 1 1 [facility] for visit Narrative* Outpatient Procedure (Routine) - Closed Specialty Diagnoses / Procedures Referred By Contac t Referred To Contact [facility] Diagnoses Family history of colon cancer in father Procedures COLONOSCOPY SCREENING COLONOSCOPY FLX DX W/COLLJ SPEC WHEN Johanna Sena MD [address] [place] [address] [facility] [address] [place] [id number] Referral ID Status Reason Start Date Expiration Date V isits Requested Visits Authorized [id number] Closed Auto-Generate d Referral 07/22/2022 07/22/2023 1 1 [facility] for visit Narrative* Diagnostic Procedure Only (Routine) - Closed Specialty Diagnoses / Procedures Referred By Contac t Referred To Contact US IMAG[facility] Diagnoses Multiple thyroid nodules Procedures US THYROID/PARATHYROID US SOFT TISSUE HEAD & NECK REAL TIME IMGE Torres Todd APRN.[facility] [address] [address] [place] [address] Referral ID Status Reason Start Date Expiration Date V isits Requested Visits Authorized [id number] Closed Auto-Generate d Referral 07/07/2023 08/05/2024 1 1 [facility] for visit Narrative* Diagnostic Procedure Only (Routine) - Closed Specialty Diagnoses / Procedures Referred By Contac t Referred To Contact XR IMAGING Diagnoses Acute pain of right shoulder Procedures XR SHOULDER GENERAL 3V OR MORE AP/TRUE AP/OTHER RIGHT RADEX SHOULDER COMPLETE MINIMUM 2 VIEWS Dominik Kelley, GHULAM.KITMAN [address] [place] [address] [place] [address] Referral ID Status Reason Start Date Expiration Date V isits Requested Visits Authorized [id number] Closed Auto-Generate d Referral 05/21/2024 06/20/2025 1 1 [facility] for visit Narrative* Diagnostic Procedure Only (Routine) - Closed Specialty Diagnoses / Procedures Referred By Contac t Referred To Contact [facility] Diagnoses Subareolar mass of right breast Procedures FIGUEROA DIAGNOSTIC BILATERAL DIAGNOSTIC MAMMOGRAPHY COMPUTER-AIDED DETCJ BI Humberto Jackson MD [address] [place] [address] Phone: tel: fax: [facility] [address] [place] [address] Referral ID Status Reason Start Date Expiration Date V isits Requested Visits Authorized [id number] Closed Auto-Generate d Referral 11/22/2024 12/22/2025 1 1 [facility] for visit Narrative* MRI/CT (Routine) - Closed Specialty Diagnoses / Procedures Referred By Contphilip t Referred To Contact MR IMAGING Diagnoses Acute pain of right shoulder Procedures MRI SHOULDER WO IVCON RIGHT MRI ANY JT UPPER EXTREMITY W/O CONTRAST MATRL Humberto Jackson MD [address] [place] [address] Phone: tel: fax: [place] [address] Referral ID Status Reason Start Date Expiration Date V isits Requested Visits Authorized [id number] Closed Auto-Generate d Referral 12/20/2024 01/19/2026 1 1 [facility] Summary Purpose Family History No Family History Records Found Relationship Condition Age at Onset Recorded Date/T ariadna father Malignant neoplasm of colon Unknown Cardiac disease Unknown Myocardial infarction Unknown Advance Directives No Advanced Directives Records FoundDocuments on File Type Date Recorded Patient Legal Document Assistant Expl anation Advance Directive(s) 01/20/2021 6:28 PM Advance Directive(s) 02/01/2020 3:50 PM Advance Directive(s) 10/20/2018 4:37 PM Advance Directive(s) 07/14/2018 4:43 PM Advance Directive(s) 09/08/2017 9:38 AM Advance Directive(s) 08/16/2017 10:21 AM Documents on File Type Date Recorded Patient Legal Document Assistant Expl anation Advance Directive(s) 01/20/2021 6:28 PM Advance Directive(s) 02/01/2020 3:50 PM Advance Directive(s) 10/20/2018 4:37 PM Advance Directive(s) 07/14/2018 4:43 PM Advance Directive(s) 09/08/2017 9:38 AM Advance Directive(s) 08/16/2017 10:21 AM Advance Directive Response Recorded Date/ Time Living Will No April 14, 2023 2 :47pm Power of Yard Driver No April 14, 2023 2:47pm Advance Directive Response Recorded Date/ Time Living Will No April 14, 2023 9 :00pm Power of Yard Driver No April 14, 2023 9:00pm Reason for Referral Specialty Diagnoses / Procedures Referred By Contac t Referred To Contact Podiatry Diagnoses Type 2 diabetes mellitus without complication, without long-term current use of insulin (HCC) Procedures CONSULT TO PODIATRY OFFICE/OUTPATIENT [facility] 60-74 MINUTES Torres Monaco APRN.[facility] [address] [address] Referral ID Status Reason Start Date Expiration Date Visits Requested Visits Authorized [id number] Authorized PCP Requested Referral 03/04/2022 03/04/2023 1 1 Specialty Diagnoses / Procedures Referred By Contac t Referred To Contact Diagnoses Obstructive sleep apnea syndrome Procedures CONSULT TO SLEEP MEDICINE - ADULT OFFICE/OUTPATIENT [facility] 60-74 MINUTES Humberto Jackson MD [address] [place] [address] Referral ID Status Reason Start Date Expiration Date Visits Requested Visits Authorized [id number] Authorized PCP Requested Referral 06/04/2022 06/04/2023 1 1 Specialty Diagnoses / Procedures Referred By Contac t Referred To Contact General Surgery Diagnoses Abscess of buttock Pilonidal cyst Procedures CONSULT TO GENERAL SURGERY OFFICE/OUTPATIENT [facility] 60-74 MINUTES Kenyatta Castaneda PA-C [address] [place] [address] Referral ID Status Reason Start Date Expiration Date Visits Requested Visits Authorized [id number] Authorized PCP Requested Referral 08/17/2022 08/17/2023 1 1 Specialty Diagnoses / Procedures Referred By Contac t Referred To Contact Radiology Diagnoses Right foot pain Procedures XR foot right 3+ views Stanton Peters DO [address] [place] [address] Referral ID Status Reason Start Date Expiration Date Visits Requested Visits Authorized [id number] Authorized Perform Procedure 10/27/2023 10/26/2024 1 1 Specialty Diagnoses / Procedures Referred By Contac t Referred To Contact Diagnoses Multiple thyroid nodules Procedures CONSULT TO ENDOCRINE SURGERY OFFICE/OUTPATIENT [facility] 60 MINUTES Torres Monaco APRN.[facility] [address] [address] Referral ID Status Reason Start Date Expiration Date Visits Requested Visits Authorized [id number] Authorized PCP Requested Referral 01/24/2024 01/23/2025 1 1 Specialty Diagnoses / Procedures Referred By Contac t Referred To Contact [facility] Diagnoses Acute pain of right shoulder Procedures CONSULT TO PHYSICAL THERAPY PHYSICAL THERAPY EVALUATION [facility] 45 MINS Dominik Kelley, HR BUSINESS PARTNER CONSULTANT.KITMAN [address] [place] [address] [facility] [address] [place] [address] Referral ID Status Reason Start Date Expiration Date Visits Requested Visits Authorized [id number] Authorized Auto-Generat ed Referral 02/07/2024 10/08/2024 20 20 Specialty Diagnoses / Procedures Referred By Contac t Referred To Contact XR IMAGING Diagnoses Acute pain of right shoulder Procedures XR SHOULDER GENERAL 3V OR MORE AP/TRUE AP/OTHER RIGHT RADEX SHOULDER COMPLETE MINIMUM 2 VIEWS Dominik Kelley, HR BUSINESS PARTNER CONSULTANT.KITMAN [address] [place] [address] [place] [address] Referral ID Status Reason Start Date Expiration Date V isits Requested Visits Authorized [id number] Closed Auto-Generate d Referral 05/21/2024 06/20/2025 1 [...] section and content) DATE CREATED AUTHOR 04/03/2018 [facility] DATE CREATED AUTHOR AUTHOR'S ORGANIZ ATION 10/23/2018 [facility] DATE CREATED AUTHOR AUTHOR'S ORGANIZ ATION 03/05/2020 [facility] DATE CREATED AUTHOR AUTHOR'S ORGANIZ ATION 04/01/2024 [facility] DATE CREATED AUTHOR AUTHOR'S ORGANIZ ATION 04/26/2024 [facility] DATE CREATED AUTHOR AUTHOR'S ORGANIZ ATION 01/14/2025 [facility] DATE CREATED AUTHOR AUTHOR'S ORGANIZ ATION 03/09/2025 [facility] DATE CREATED AUTHOR AUTHOR'S ORGANIZ ATION 03/11/2025 [facility] Source Comments (unrecognize d section and content) In the event this informatio n is protected by the Federal Confidentiality of Alcohol and Drug Abuse Patient Records regulations: The Federal rules restrict any use of the information to criminally investigate or prosecute any alcohol or drug abuse patient.[facility] the event this information is protected by the Federal Confidentiality of Alcohol and Drug Abuse Patient Records regulations: The Federal rules restrict any use of the information to criminally investigate or prosecute any alcohol or drug abuse patient.[facility] CenterIn the event this information is protected by the Federal Confidentiality of Alcohol and Drug Abuse Patient Records regulations: The Federal rules restrict any use of the information to criminally investigate or prosecute any alcohol or drug abuse patient.[facility] CenterIn the event this information is protected by the Federal Confidentiality of Alcohol and Drug Abuse Patient Records regulations: The Federal rules restrict any use of the information to criminally investigate or prosecute any alcohol or drug abuse patient.[facility] CenterIn the event this information is protected by the Federal Confidentiality of Alcohol and Drug Abuse Patient Records regulations: The Federal rules restrict any use of the information to criminally investigate or prosecute any alcohol or drug abuse patient.[facility] CenterIn the event this information is protected by the Federal Confidentiality of Alcohol and Drug Abuse Patient Records regulations: The Federal rules restrict any use of the information to criminally investigate or prosecute any alcohol or drug abuse patient.[facility] CenterIn the event this information is protected by the Federal Confidentiality of Alcohol and Drug Abuse Patient Records regulations: The Federal rules restrict any use of the information to criminally investigate or prosecute any alcohol or drug abuse patient.[facility] CenterIn the event this information is protected by the Federal Confidentiality of Alcohol and Drug Abuse Patient Records regulations: The Federal rules restrict any use of the information to criminally investigate or prosecute any alcohol or drug abuse patient.[facility] CenterIn the event this information is protected by the Federal Confidentiality of Alcohol and Drug Abuse Patient Records regulations: The Federal rules restrict any use of the information to criminally investigate or prosecute any alcohol or drug abuse patient.[facility] CenterIn the event this information is protected by the Federal Confidentiality of Alcohol and Drug Abuse Patient Records regulations: The Federal rules restrict any use of the information to criminally investigate or prosecute any alcohol or drug abuse patient.[facility] CenterIn the event this information is protected by the Federal Confidentiality of Alcohol and Drug Abuse Patient Records regulations: The Federal rules restrict any use of the information to criminally investigate or prosecute any alcohol or drug abuse patient.[facility] CenterIn the event this information is protected by the Federal Confidentiality of Alcohol and Drug Abuse Patient Records regulations: The Federal rules restrict any use of the information to criminally investigate or prosecute any alcohol or drug abuse patient.[facility] CenterIn the event this information is protected by the Federal Confidentiality of Alcohol and Drug Abuse Patient Records regulations: The Federal rules restrict any use of the information to criminally investigate or prosecute any alcohol or drug abuse patient.[facility] CenterIn the event this information is protected by the Federal Confidentiality of Alcohol and Drug Abuse Patient Records regulations: The Federal rules restrict any use of the information to criminally investigate or prosecute any alcohol or drug abuse patient.[facility] CenterIn the event this information is protected by the Federal Confidentiality of Alcohol and Drug Abuse Patient Records regulations: The Federal rules restrict any use of the information to criminally investigate or prosecute any alcohol or drug abuse patient.[facility] CenterIn the event this information is protected by the Federal Confidentiality of Alcohol and Drug Abuse Patient Records regulations: The Federal rules restrict any use of the information to criminally investigate or prosecute any alcohol or drug abuse patient.[facility] CenterIn the event this information is protected by the Federal Confidentiality of Alcohol and Drug Abuse Patient Records regulations: The Federal rules restrict any use of the information to criminally investigate or prosecute any alcohol or drug abuse patient.[facility] CenterIn the event this information is protected by the Federal Confidentiality of Alcohol and Drug Abuse Patient Records regulations: The Federal rules restrict any use of the information to criminally investigate or prosecute any alcohol or drug abuse patient.[facility] CenterIn the event this information is protected by the Federal Confidentiality of Alcohol and Drug Abuse Patient Records regulations: The Federal rules restrict any use of the information to criminally investigate or prosecute any alcohol or drug abuse patient.[facility] CenterIn the event this information is protected by the Federal Confidentiality of Alcohol and Drug Abuse Patient Records regulations: The Federal rules restrict any use of the information to criminally investigate or prosecute any alcohol or drug abuse patient.[facility] CenterIn the event this information is protected by the Federal Confidentiality of Alcohol and Drug Abuse Patient Records regulations: The Federal rules restrict any use of the information to criminally investigate or prosecute any alcohol or drug abuse patient.[facility] CenterIn the event this information is protected by the Federal Confidentiality of Alcohol and Drug Abuse Patient Records regulations: The Federal rules restrict any use of the information to criminally investigate or prosecute any alcohol or drug abuse patient.[facility] CenterIn the event this information is protected by the Federal Confidentiality of Alcohol and Drug Abuse Patient Records regulations: The Federal rules restrict any use of the information to criminally investigate or prosecute any alcohol or drug abuse patient.[facility] CenterIn the event this information is protected by the Federal Confidentiality of Alcohol and Drug Abuse Patient Records regulations: The Federal rules restrict any use of the information to criminally investigate or prosecute any alcohol or drug abuse patient.[facility] CenterIn the event this information is protected by the Federal Confidentiality of Alcohol and Drug Abuse Patient Records regulations: The Federal rules restrict any use of the information to criminally investigate or prosecute any alcohol or drug abuse patient.[facility] CenterIn the event this information is protected by the Federal Confidentiality of Alcohol and Drug Abuse Patient Records regulations: The Federal rules restrict any use of the information to criminally investigate or prosecute any alcohol or drug abuse patient.[facility] CenterIn the event this information is protected by the Federal Confidentiality of Alcohol and Drug Abuse Patient Records regulations: The Federal rules restrict any use of the information to criminally investigate or prosecute any alcohol or drug abuse patient.[facility] CenterIn the event this information is protected by the Federal Confidentiality of Alcohol and Drug Abuse Patient Records regulations: The Federal rules restrict any use of the information to criminally investigate or prosecute any alcohol or drug abuse patient.[facility] CenterIn the event this information is protected by the Federal Confidentiality of Alcohol and Drug Abuse Patient Records regulations: The Federal rules restrict any use of the information to criminally investigate or prosecute any alcohol or drug abuse patient.[facility] CenterIn the event this information is protected by the Federal Confidentiality of Alcohol and Drug Abuse Patient Records regulations: The Federal rules restrict any use of the information to criminally investigate or prosecute any alcohol or drug abuse patient.[facility] CenterIn the event this information is protected by the Federal Confidentiality of Alcohol and Drug Abuse Patient Records regulations: The Federal rules restrict any use of the information to criminally investigate or prosecute any alcohol or drug abuse patient.[facility] CenterIn the event this information is protected by the Federal Confidentiality of Alcohol and Drug Abuse Patient Records regulations: The Federal rules restrict any use of the information to criminally investigate or prosecute any alcohol or drug abuse patient.[facility] CenterIn the event this information is protected by the Federal Confidentiality of Alcohol and Drug Abuse Patient Records regulations: The Federal rules restrict any use of the information to criminally investigate or prosecute any alcohol or drug abuse patient.[facility] CenterIn the event this information is protected by the Federal Confidentiality of Alcohol and Drug Abuse Patient Records regulations: The Federal rules restrict any use of the information to criminally investigate or prosecute any alcohol or drug abuse patient.[facility] CenterIn the event this information is protected by the Federal Confidentiality of Alcohol and Drug Abuse Patient Records regulations: The Federal rules restrict any use of the information to criminally investigate or prosecute any alcohol or drug abuse patient.[facility] CenterIn the event this information is protected by the Federal Confidentiality of Alcohol and Drug Abuse Patient Records regulations: The Federal rules restrict any use of the information to criminally investigate or prosecute any alcohol or drug abuse patient.[facility] CenterIn the event this information is protected by the Federal Confidentiality of Alcohol and Drug Abuse Patient Records regulations: The Federal rules restrict any use of the information to criminally investigate or prosecute any alcohol or drug abuse patient.[facility] CenterIn the event this information is protected by the Federal Confidentiality of Alcohol and Drug Abuse Patient Records regulations: The Federal rules restrict any use of the information to criminally investigate or prosecute any alcohol or drug abuse patient.[facility] CenterIn the event this information is protected by the Federal Confidentiality of Alcohol and Drug Abuse Patient Records regulations: The Federal rules restrict any use of the information to criminally investigate or prosecute any alcohol or drug abuse patient.[facility] CenterIn the event this information is protected by the Federal Confidentiality of Alcohol and Drug Abuse Patient Records regulations: The Federal rules restrict any use of the information to criminally investigate or prosecute any alcohol or drug abuse patient.[facility] CenterIn the event this information is protected by the Federal Confidentiality of Alcohol and Drug Abuse Patient Records regulations: The Federal rules restrict any use of the information to criminally investigate or prosecute any alcohol or drug abuse patient.[facility] CenterIn the event this information is protected by the Federal Confidentiality of Alcohol and Drug Abuse Patient Records regulations: The Federal rules restrict any use of the information to criminally investigate or prosecute any alcohol or drug abuse patient.[facility] CenterIn the event this information is protected by the Federal Confidentiality of Alcohol and Drug Abuse Patient Records regulations: The Federal rules restrict any use of the information to criminally investigate or prosecute any alcohol or drug abuse patient.[facility] CenterIn the event this information is protected by the Federal Confidentiality of Alcohol and Drug Abuse Patient Records regulations: The Federal rules restrict any use of the information to criminally investigate or prosecute any alcohol or drug abuse patient.[facility] CenterIn the event this information is protected by the Federal Confidentiality of Alcohol and Drug Abuse Patient Records regulations: The Federal rules restrict any use of the information to criminally investigate or prosecute any alcohol or drug abuse patient.[facility] CenterIn the event this information is protected by the Federal Confidentiality of Alcohol and Drug Abuse Patient Records regulations: The Federal rules restrict any use of the information to criminally investigate or prosecute any alcohol or drug abuse patient.[facility] CenterIn the event this information is protected by the Federal Confidentiality of Alcohol and Drug Abuse Patient Records regulations: The Federal rules restrict any use of the information to criminally investigate or prosecute any alcohol or drug abuse patient.[facility] CenterIn the event this information is protected by the Federal Confidentiality of Alcohol and Drug Abuse Patient Records regulations: The Federal rules restrict any use of the information to criminally investigate or prosecute any alcohol or drug abuse patient.[facility] CenterIn the event this information is protected by the Federal Confidentiality of Alcohol and Drug Abuse Patient Records regulations: The Federal rules restrict any use of the information to criminally investigate or prosecute any alcohol or drug abuse patient.[facility] CenterIn the event this information is protected by the Federal Confidentiality of Alcohol and Drug Abuse Patient Records regulations: The Federal rules restrict any use of the information to criminally investigate or prosecute any alcohol or drug abuse patient.[facility] CenterIn the event this information is protected by the Federal Confidentiality of Alcohol and Drug Abuse Patient Records regulations: The Federal rules restrict any use of the information to criminally investigate or prosecute any alcohol or drug abuse patient.[facility] CenterIn the event this information is protected by the Federal Confidentiality of Alcohol and Drug Abuse Patient Records regulations: The Federal rules restrict any use of the information to criminally investigate or prosecute any alcohol or drug abuse patient.[facility] CenterIn the event this information is protected by the Federal Confidentiality of Alcohol and Drug Abuse Patient Records regulations: The Federal rules restrict any use of the information to criminally investigate or prosecute any alcohol or drug abuse patient.[facility] CenterIn the event this information is protected by the Federal Confidentiality of Alcohol and Drug Abuse Patient Records regulations: The Federal rules restrict any use of the information to criminally investigate or prosecute any alcohol or drug abuse patient.[facility] CenterIn the event this information is protected by the Federal Confidentiality of Alcohol and Drug Abuse Patient Records regulations: The Federal rules restrict any use of the information to criminally investigate or prosecute any alcohol or drug abuse patient.[facility] CenterIn the event this information is protected by the Federal Confidentiality of Alcohol and Drug Abuse Patient Records regulations: The Federal rules restrict any use of the information to criminally investigate or prosecute any alcohol or drug abuse patient.[facility] CenterIn the event this information is protected by the Federal Confidentiality of Alcohol and Drug Abuse Patient Records regulations: The Federal rules restrict any use of the information to criminally investigate or prosecute any alcohol or drug abuse patient.[facility] CenterIn the event this information is protected by the Federal Confidentiality of Alcohol and Drug Abuse Patient Records regulations: The Federal rules restrict any use of the information to criminally investigate or prosecute any alcohol or drug abuse patient.[facility] CenterIn the event this information is protected by the Federal Confidentiality of Alcohol and Drug Abuse Patient Records regulations: The Federal rules restrict any use of the information to criminally investigate or prosecute any alcohol or drug abuse patient.[facility] CenterIn the event this information is protected by the Federal Confidentiality of Alcohol and Drug Abuse Patient Records regulations: The Federal rules restrict any use of the information to criminally investigate or prosecute any alcohol or drug abuse patient.[facility] CenterIn the event this information is protected by the Federal Confidentiality of Alcohol and Drug Abuse Patient Records regulations: The Federal rules restrict any use of the information to criminally investigate or prosecute any alcohol or drug abuse patient.[facility] CenterIn the event this information is protected by the Federal Confidentiality of Alcohol and Drug Abuse Patient Records regulations: The Federal rules restrict any use of the information to criminally investigate or prosecute any alcohol or drug abuse patient.[facility] CenterIn the event this information is protected by the Federal Confidentiality of Alcohol and Drug Abuse Patient Records regulations: The Federal rules restrict any use of the information to criminally investigate or prosecute any alcohol or drug abuse patient.[facility] CenterIn the event this information is protected by the Federal Confidentiality of Alcohol and Drug Abuse Patient Records regulations: The Federal rules restrict any use of the information to criminally investigate or prosecute any alcohol or drug abuse patient.[facility] CenterIn the event this information is protected by the Federal Confidentiality of Alcohol and Drug Abuse Patient Records regulations: The Federal rules restrict any use of the information to criminally investigate or prosecute any alcohol or drug abuse patient.[facility] CenterIn the event this information is protected by the Federal Confidentiality of Alcohol and Drug Abuse Patient Records regulations: The Federal rules restrict any use of the information to criminally investigate or prosecute any alcohol or drug abuse patient.[facility] CenterIn the event this information is protected by the Federal Confidentiality of Alcohol and Drug Abuse Patient Records regulations: The Federal rules restrict any use of the information to criminally investigate or prosecute any alcohol or drug abuse patient.[facility] CenterIn the event this information is protected by the Federal Confidentiality of Alcohol and Drug Abuse Patient Records regulations: The Federal rules restrict any use of the information to criminally investigate or prosecute any alcohol or drug abuse patient.[facility] CenterIn the event this information is protected by the Federal Confidentiality of Alcohol and Drug Abuse Patient Records regulations: The Federal rules restrict any use of the information to criminally investigate or prosecute any alcohol or drug abuse patient.[facility] CenterIn the event this information is protected by the Federal Confidentiality of Alcohol and Drug Abuse Patient Records regulations: The Federal rules restrict any use of the information to criminally investigate or prosecute any alcohol or drug abuse patient.[facility] CenterIn the event this information is protected by the Federal Confidentiality of Alcohol and Drug Abuse Patient Records regulations: The Federal rules restrict any use of the information to criminally investigate or prosecute any alcohol or drug abuse patient.[facility] CenterIn the event this information is protected by the Federal Confidentiality of Alcohol and Drug Abuse Patient Records regulations: The Federal rules restrict any use of the information to criminally investigate or prosecute any alcohol or drug abuse patient.[facility] CenterIn the event this information is protected by the Federal Confidentiality of Alcohol and Drug Abuse Patient Records regulations: The Federal rules restrict any use of the information to criminally investigate or prosecute any alcohol or drug abuse patient.[facility] CenterIn the event this information is protected by the Federal Confidentiality of Alcohol and Drug Abuse Patient Records regulations: The Federal rules restrict any use of the information to criminally investigate or prosecute any alcohol or drug abuse patient.[facility] CenterIn the event this information is protected by the Federal Confidentiality of Alcohol and Drug Abuse Patient Records regulations: The Federal rules restrict any use of the information to criminally investigate or prosecute any alcohol or drug abuse patient.[facility] CenterIn the event this information is protected by the Federal Confidentiality of Alcohol and Drug Abuse Patient Records regulations: The Federal rules restrict any use of the information to criminally investigate or prosecute any alcohol or drug abuse patient.[facility] CenterIn the event this information is protected by the Federal Confidentiality of Alcohol and Drug Abuse Patient Records regulations: The Federal rules restrict any use of the information to criminally investigate or prosecute any alcohol or drug abuse patient.[facility] CenterIn the event this information is protected by the Federal Confidentiality of Alcohol and Drug Abuse Patient Records regulations: The Federal rules restrict any use of the information to criminally investigate or prosecute any alcohol or drug abuse patient.[facility] CenterIn the event this information is protected by the Federal Confidentiality of Alcohol and Drug Abuse Patient Records regulations: The Federal rules restrict any use of the information to criminally investigate or prosecute any alcohol or drug abuse patient.[facility] CenterIn the event this information is protected by the Federal Confidentiality of Alcohol and Drug Abuse Patient Records regulations: The Federal rules restrict any use of the information to criminally investigate or prosecute any alcohol or drug abuse patient.[facility] CenterIn the event this information is protected by the Federal Confidentiality of Alcohol and Drug Abuse Patient Records regulations: The Federal rules restrict any use of the information to criminally investigate or prosecute any alcohol or drug abuse patient.[facility] CenterIn the event this information is protected by the Federal Confidentiality of Alcohol and Drug Abuse Patient Records regulations: The Federal rules restrict any use of the information to criminally investigate or prosecute any alcohol or drug abuse patient.[facility] CenterIn the event this information is protected by the Federal Confidentiality of Alcohol and Drug Abuse Patient Records regulations: The Federal rules restrict any use of the information to criminally investigate or prosecute any alcohol or drug abuse patient.[facility] CenterIn the event this information is protected by the Federal Confidentiality of Alcohol and Drug Abuse Patient Records regulations: The Federal rules restrict any use of the information to criminally investigate or prosecute any alcohol or drug abuse patient.[facility] CenterIn the event this information is protected by the Federal Confidentiality of Alcohol and Drug Abuse Patient Records regulations: The Federal rules restrict any use of the information to criminally investigate or prosecute any alcohol or drug abuse patient.[facility] CenterIn the event this information is protected by the Federal Confidentiality of Alcohol and Drug Abuse Patient Records regulations: The Federal rules restrict any use of the information to criminally investigate or prosecute any alcohol or drug abuse patient.[facility] CenterIn the event this information is protected by the Federal Confidentiality of Alcohol and Drug Abuse Patient Records regulations: The Federal rules restrict any use of the information to criminally investigate or prosecute any alcohol or drug abuse patient.[facility] CenterIn the event this information is protected by the Federal Confidentiality of Alcohol and Drug Abuse Patient Records regulations: The Federal rules restrict any use of the information to criminally investigate or prosecute any alcohol or drug abuse patient.[facility] CenterIn the event this information is protected by the Federal Confidentiality of Alcohol and Drug Abuse Patient Records regulations: The Federal rules restrict any use of the information to criminally investigate or prosecute any alcohol or drug abuse patient.[facility] CenterIn the event this information is protected by the Federal Confidentiality of Alcohol and Drug Abuse Patient Records regulations: The Federal rules restrict any use of the information to criminally investigate or prosecute any alcohol or drug abuse patient.[facility] CenterIn the event this information is protected by the Federal Confidentiality of Alcohol and Drug Abuse Patient Records regulations: The Federal rules restrict any use of the information to criminally investigate or prosecute any alcohol or drug abuse patient.[facility] CenterIn the event this information is protected by the Federal Confidentiality of Alcohol and Drug Abuse Patient Records regulations: The Federal rules restrict any use of the information to criminally investigate or prosecute any alcohol or drug abuse patient.[facility] CenterIn the event this information is protected by the Federal Confidentiality of Alcohol and Drug Abuse Patient Records regulations: The Federal rules restrict any use of the information to criminally investigate or prosecute any alcohol or drug abuse patient.[facility] CenterIn the event this information is protected by the Federal Confidentiality of Alcohol and Drug Abuse Patient Records regulations: The Federal rules restrict any use of the information to criminally investigate or prosecute any alcohol or drug abuse patient.[facility] CenterIn the event this information is protected by the Federal Confidentiality of Alcohol and Drug Abuse Patient Records regulations: The Federal rules restrict any use of the information to criminally investigate or prosecute any alcohol or drug abuse patient.[facility] CenterIn the event this information is protected by the Federal Confidentiality of Alcohol and Drug Abuse Patient Records regulations: The Federal rules restrict any use of the information to criminally investigate or prosecute any alcohol or drug abuse patient.[facility] CenterIn the event this information is protected by the Federal Confidentiality of Alcohol and Drug Abuse Patient Records regulations: The Federal rules restrict any use of the information to criminally investigate or prosecute any alcohol or drug abuse patient.[facility] CenterIn the event this information is protected by the Federal Confidentiality of Alcohol and Drug Abuse Patient Records regulations: The Federal rules restrict any use of the information to criminally investigate or prosecute any alcohol or drug abuse patient.[facility] CenterIn the event this information is protected by the Federal Confidentiality of Alcohol and Drug Abuse Patient Records regulations: The Federal rules restrict any use of the information to criminally investigate or prosecute any alcohol or drug abuse patient.[facility] CenterIn the event this information is protected by the Federal Confidentiality of Alcohol and Drug Abuse Patient Records regulations: The Federal rules restrict any use of the information to criminally investigate or prosecute any alcohol or drug abuse patient.[facility] CenterIn the event this information is protected by the Federal Confidentiality of Alcohol and Drug Abuse Patient Records regulations: The Federal rules restrict any use of the information to criminally investigate or prosecute any alcohol or drug abuse patient.[facility] CenterIn the event this information is protected by the Federal Confidentiality of Alcohol and Drug Abuse Patient Records regulations: The Federal rules restrict any use of the information to criminally investigate or prosecute any alcohol or drug abuse patient.[facility] CenterIn the event this information is protected by the Federal Confidentiality of Alcohol and Drug Abuse Patient Records regulations: The Federal rules restrict any use of the information to criminally investigate or prosecute any alcohol or drug abuse patient.[facility] CenterIn the event this information is protected by the Federal Confidentiality of Alcohol and Drug Abuse Patient Records regulations: The Federal rules restrict any use of the information to criminally investigate or prosecute any alcohol or drug abuse patient.[facility] CenterIn the event this information is protected by the Federal Confidentiality of Alcohol and Drug Abuse Patient Records regulations: The Federal rules restrict any use of the information to criminally investigate or prosecute any alcohol or drug abuse patient.[facility] CenterIn the event this information is protected by the Federal Confidentiality of Alcohol and Drug Abuse Patient Records regulations: The Federal rules restrict any use of the information to criminally investigate or prosecute any alcohol or drug abuse patient.[facility] CenterIn the event this information is protected by the Federal Confidentiality of Alcohol and Drug Abuse Patient Records regulations: The Federal rules restrict any use of the information to criminally investigate or prosecute any alcohol or drug abuse patient.[facility] CenterIn the event this information is protected by the Federal Confidentiality of Alcohol and Drug Abuse Patient Records regulations: The Federal rules restrict any use of the information to criminally investigate or prosecute any alcohol or drug abuse patient.[facility] CenterIn the event this information is protected by the Federal Confidentiality of Alcohol and Drug Abuse Patient Records regulations: The Federal rules restrict any use of the information to criminally investigate or prosecute any alcohol or drug abuse patient.[facility] CenterIn the event this information is protected by the Federal Confidentiality of Alcohol and Drug Abuse Patient Records regulations: The Federal rules restrict any use of the information to criminally investigate or prosecute any alcohol or drug abuse patient.[facility] CenterIn the event this information is protected by the Federal Confidentiality of Alcohol and Drug Abuse Patient Records regulations: The Federal rules restrict any use of the information to criminally investigate or prosecute any alcohol or drug abuse patient.[facility] CenterIn the event this information is protected by the Federal Confidentiality of Alcohol and Drug Abuse Patient Records regulations: The Federal rules restrict any use of the information to criminally investigate or prosecute any alcohol or drug abuse patient.[facility] CenterIn the event this information is protected by the Federal Confidentiality of Alcohol and Drug Abuse Patient Records regulations: The Federal rules restrict any use of the information to criminally investigate or prosecute any alcohol or drug abuse patient.[facility] CenterIn the event this information is protected by the Federal Confidentiality of Alcohol and Drug Abuse Patient Records regulations: The Federal rules restrict any use of the information to criminally investigate or prosecute any alcohol or drug abuse patient.[facility] CenterIn the event this information is protected by the Federal Confidentiality of Alcohol and Drug Abuse Patient Records regulations: The Federal rules restrict any use of the information to criminally investigate or prosecute any alcohol or drug abuse patient.[facility] CenterIn the event this information is protected by the Federal Confidentiality of Alcohol and Drug Abuse Patient Records regulations: The Federal rules restrict any use of the information to criminally investigate or prosecute any alcohol or drug abuse patient.[facility] CenterIn the event this information is protected by the Federal Confidentiality of Alcohol and Drug Abuse Patient Records regulations: The Federal rules restrict any use of the information to criminally investigate or prosecute any alcohol or drug abuse patient.[facility] Reason for Visit (unrecogniz ed section and content) Reason Comments Physical Therapy Specialty Diagnoses / Procedures Referred By Carlos cortes Referred To Contact [facility] Diagnoses Acute pain of right shoulder Procedures CONSULT TO PHYSICAL THERAPY PHYSICAL THERAPY EVALUATION HIGH COMPLEX 45 MINS Dominik Kelley, HR BUSINESS PARTNER CONSULTANT.[facility] [address] [place] [address] [facility] [place] [address] [place] [address] Referral ID Status Reason Start Date Expiration Date Visits Requested Visits Authorized [id number] Authorized Auto-Generat ed Referral 02/07/2024 10/08/2024 20 [...] MG Specialty Diagnoses / Procedures Referred By Contac t Referred To Contact Radiology Diagnoses Right foot pain Procedures XR foot right 3+ views Stanton Peters, [address] [place] [address] Referral ID Status Reason Start Date Expiration Date Visits Requested Visits Authorized [id number] Authorized Perform Procedure 10/27/2023 10/26/2024 1 1 Reason Comments PA--FREESTYLE EVERT 3 SENSOR (RENEWAL) Reason Comments Physical Reason Comments Med Change Request Reason Comments Results Appointment Reason Onset Date Comments Refill Request 01/23/2024 Specialty Diagnoses / Procedures Referred By Contac t Referred To Contact Diagnoses Multiple thyroid nodules Procedures CONSULT TO ENDOCRINE SURGERY OFFICE/OUTPATIENT [facility] 60 MINUTES Torres Monaco, GHULAM.KITMAN [address] [address] Referral ID Status Reason Start Date Expiration Date V isits Requested Visits Authorized [id number] Closed PCP Requested Referral 01/24/2024 01/23/2025 1 [...] EVALUATION HIGH COMPLEX 45 MINS Dominik Kelley APRN.KITMAN [address] [place] [address] Pt Formerly [facility] [address] [place] [address] Reason Comments Radiology US Specialty Diagnoses / Procedures Referred By Contac t Referred To Contact US IMAGING Diagnoses Elevated alkaline phosphatase level Procedures US ABD RIGHT UPPER QUADRANT US ABDOMINAL REAL TIME W/IMAGE LIMITED Humberto Jackson MD [address] [place] [address] [place] [address] Referral ID Status Reason Start Date Expiration Date V isits Requested Visits Authorized [id number] Closed Auto-Generate d Referral 10/17/2024 11/16/2025 1 1 Reason Comments Results Reason Onset Date Comments Refill Request 11/18/2024 Reason Comments Pain Right nipple pain Reason Comments Radiology US Specialty Diagnoses / Procedures Referred By Contac t Referred To Contact BR IMAGING Diagnoses Subareolar mass of right breast Procedures US BREAST LTD RIGHT US BREAST UNI REAL TIME WITH IMAGE LIMITED Humberto Jackson MD [address] [place] [address] Phone: tel: fax: [facility] [address] [place] [address] Referral ID Status Reason Start Date Expiration Date V isits Requested Visits Authorized [id number] Closed Auto-Generate d Referral 11/22/2024 12/22/2025 1 1 Reason Comments Radiology MRI Specialty Diagnoses / Procedures Referred By Contac t Referred To Contact MR IMAGING Diagnoses Gynecomastia, male Low testosterone in male Elevated prolactin level Procedures MRI BRAIN WO/W IVCON MRI BRAIN BRAIN STEM W/O W/CONTRAST MATERIAL Humberto Jackson MD [address] [place] [address] Phone: tel: fax: [place] [address] Referral ID Status Reason Start Date Expiration Date V isits Requested Visits Authorized [id number] Closed Auto-Generate d Referral 11/26/2024 12/26/2025 1 [...] HIGH MDM 60 MINUTES Elizabeth Suárez MD [address] [place] [address] Phone: tel: fax: Referral ID Status Reason Start Date Expiration Date V isits Requested Visits Authorized [id number] Closed PCP Requested Referral 01/10/2025 01/10/2026 1 1 Reason Comments Pituitary Problem Specialty Diagnoses / Procedures Referred By Contac t Referred To Contact Neurosurgery Diagnoses Gynecomastia Elevated prolactin level Pituitary adenoma (HCC) Procedures CONSULT TO NEUROSURGERY OFFICE/OUTPATIENT NEW HIGH MDM 60 MINUTES Humberto Jackson MD [address] [place] [address] Phone: tel: fax: Referral ID Status Reason Start Date Expiration Date V isits Requested Visits Authorized [id number] Closed PCP Requested Referral 12/20/2024 12/20/2025 1 1 Reason Comments Dizziness X 1 week Reason Onset Date Comments Results 03/07/2025 Reason Comments low hgb Low Hgb. SOB easy. E asily fatigued. PCP wants colonoscopy Specialty Diagnoses / Procedures Referred By Contac t Referred To Contact General Surgery Diagnoses Anemia, unspecified type Procedures CONSULT TO GENERAL SURGERY OFFICE/OUTPATIENT NEW HIGH MDM 60 MINUTES Kenyatta Castaneda PA-C [address] [place] [address] Phone: tel: fax: Referral ID Status Reason Start Date Expiration Date V isits Requested Visits Authorized [id number] Closed PCP Requested Referral 03/07/2025 03/07/2026 1 1 Reason Comments Results, Lab Care Teams (unrecognized sec tion and content) Clinical Social Work Aide Relationship Specialty Start Date End Date Humberto Jackson MD [address] [place] [address] PCP - General Family Practice 05/06/14 Clinical Social Work Aide Relationship Specialty Start Date End Date Humberto Jackson MD [address] [place] [address] PCP - General Family Practice 05/06/14 Clinical Social Work Aide Relationship Specialty Start Date End Date Humberto Jackson MD [address] [place] [address] PCP - General Family Practice 05/06/14 Clinical Social Work Aide Relationship Specialty Start Date End Date Humberto Jackson MD [address] [place] [address] PCP - General Family Practice 05/06/14 Clinical Social Work Aide Relationship Specialty Start Date End Date Humberto Jackson MD [address] [place] [address] PCP - General Family Practice 05/06/14 Clinical Social Work Aide Relationship Specialty Start Date End Date Humberto Jackson MD [facility] [place] [address] PCP - General Family Practice 05/06/14 Clinical Social Work Aide Relationship Specialty Start Date End Date Humberto Jackson MD [facility] [place] [address] PCP - General Family Practice 05/06/14 Clinical Social Work Aide Relationship Specialty Start Date End Date Humberto Jackson MD [facility] [place] [address] PCP - General Family Practice 05/06/14 Clinical Social Work Aide Relationship Specialty Start Date End Date Humberto Jackson MD [address] [place] [address] [place] [address] PCP - General Family Practice 05/06/14 Clinical Social Work Aide Relationship Specialty Start Date End Date Humberto Jackson MD [address] [place] [address] PCP - General Family Practice 05/06/14 Clinical Social Work Aide Relationship Specialty Start Date End Date Humberto Jackson MD [facility] [place] [address] PCP - General Family Practice 05/06/14 Clinical Social Work Aide Relationship Specialty Start Date End Date Humberto Jackson MD [facility] [place] [address] PCP - General Family Medicine 05/06/14 Clinical Social Work Aide Relationship Specialty Start Date End Date Humberto Jackson MD [address] [place] [address], [place] [address] PCP - General Family Medicine 05/06/14 Clinical Social Work Aide Relationship Specialty Start Date End Date Humberto Jackson MD [address] [place] [address], [place] [address] PCP - General Family Medicine 05/06/14 Clinical Social Work Aide Relationship Specialty Start Date End Date Humberto Jackson MD [address] [place] [address], [place] [address] PCP - General Family Medicine 05/06/14 Clinical Social Work Aide Relationship Specialty Start Date End Date Humberto Jackson MD [facility] [place] [address] PCP - General Family Medicine 05/06/14 Clinical Social Work Aide Relationship Specialty Start Date End Date Humberto Jackson MD [facility] [place] [address] PCP - General Family Medicine 05/06/14 Clinical Social Work Aide Relationship Specialty Start Date End Date Humberto Jackson MD [address] [place] [address], [place] [address] PCP - General Family Medicine 05/06/14 Clinical Social Work Aide Relationship Specialty Start Date End Date Humberto Jackson MD [address] [facility], [place] [address] PCP - General Family Medicine 05/06/14 Clinical Social Work Aide Relationship Specialty Start Date End Date Humberto Jackson MD [address] [place] [address] PCP - General Family Medicine 05/06/14 Clinical Social Work Aide Relationship Specialty Start Date End Date Humberto Jackson MD [address] [place] [address] PCP - General Family Medicine 05/06/14 Clinical Social Work Aide Relationship Specialty Start Date End Date Humberto Jackson MD [address] [facility], [place] [address] PCP - General Family Medicine 05/06/14 Team [...] Status: Active Member Role Status Dates Dr. Humberot Jackson MD Primary Care Provider Active Dr. [...] MD Admit Provider, Attending Provi tobi Active Clinical Social Work Aide Relationship Specialty Start Date End Date Hmuberto Jackson MD [address] [facility], [place] [address] [phone] PCP - General Family Medicine 05/06/14 Clinical Social Work Aide Relationship Specialty Start Date End Date Humberto Jackson MD [address] [place] [address] PCP - General Family Medicine 05/06/14 Clinical Social Work Aide Relationship Specialty [place] [address] [place] [address] PCP - General Family Medicine 05/06/14 Clinical Social Work Aide Relationship Specialty Start Date End Date Humberto Jackson MD [address] [place] [address] PCP - General Family Medicine 05/06/14 Clinical Social Work Aide Relationship Specialty Start Date End Date Humberto Jackson MD [address] [place] [address] PCP - General Family Medicine 05/06/14 Clinical Social Work Aide Relationship Specialty Start Date End Date Humberto Jackson MD [address] [place] [address] PCP - General Family Medicine 05/06/14 Clinical Social Work Aide Relationship Specialty Start Date End Date Humberto Jackson MD [address] [place] [address] PCP - General Family Medicine 05/06/14 Clinical Social Work Aide Relationship Specialty Start Date End Date Humberto Jackson MD [address] [place] [phone] PCP - General 11/28/11 Clinical Social Work Aide Relationship Specialty Start Date End Date Humberto Jackson MD [address] [place] [address] PCP - General Family Medicine 05/06/14 Clinical Social Work Aide Relationship Specialty Start Date End Date Humberto Jackson MD [address] [place] [address] PCP - General Family Medicine 05/06/14 Efren Powell, RN [address] [place] [address] Primary Care Body Hanger Internal Medicine 09/29/23 10/29/23 Clinical Social Work Aide Relationship Specialty Start Date End Date Humberto Jackson MD [address] [place] [address] PCP - General Family Medicine 05/06/14 Clinical Social Work Aide Relationship Specialty Start Date End Date Humberto Jackson MD [address] [place] [address] PCP - General Family Medicine 05/06/14 Clinical Social Work Aide Relationship Specialty Start Date End Date Humberto Jackson MD [address] [place] [address] PCP - General Family Medicine 05/06/14 Clinical Social Work Aide Relationship Specialty Start Date End Date Humberto Jackson MD [address] [place] [address] PCP - General Family Medicine 05/06/14 Clinical Social Work Aide Relationship Specialty Start Date End Date Humberto Jackson MD [address] [place] [address] PCP - General Family Medicine 05/06/14 Clinical Social Work Aide Relationship Specialty Start Date End Date Humberto Jackson MD [address] [place] [address] PCP - General Family Medicine 05/06/14 Clinical Social Work Aide Relationship Specialty Start Date End Date Humberto Jackson MD [address] [place] [address] PCP - General Family Medicine 05/06/14 Clinical Social Work Aide Relationship Specialty Start Date End Date Humberto Jackson MD [address] [place] [address] PCP - General Family Medicine 05/06/14 Clinical Social Work Aide Relationship Specialty Start Date End Date Humberto Jackson MD [address] [place] [address] PCP - General Family Medicine 05/06/14 Clinical Social Work Aide Relationship Specialty Start Date End Date Humberto Jackson MD [address] [place] [address] PCP - General Family Medicine 05/06/14 Clinical Social Work Aide Relationship Specialty Start Date End Date Humberto Jackson MD [address] [place] [address] PCP - General Family Medicine 05/06/14 Clinical Social Work Aide Relationship Specialty Start Date End Date Humberto Jackson MD [address] [place] [address] PCP - General Family Medicine 05/06/14 Clinical Social Work Aide Relationship Specialty Start Date End Date Humberto Jackson MD [address] [place] [address] PCP - General Family Medicine 05/06/14 Clinical Social Work Aide Relationship Specialty Start Date End Date Humberto Jackson MD [address] [place] [address] PCP - General Family Medicine 05/06/14 Clinical Social Work Aide Relationship Specialty Start Date End Date Humberto Jackson MD [address] [place] [address] PCP - General Family Medicine 05/06/14 Clinical Social Work Aide Relationship Specialty Start Date End Date Humberto Jackson MD [address] [place] [address] PCP - General Family Medicine 05/06/14 Clinical Social Work Aide Relationship Specialty Start Date End Date Humberto Jackson MD [address] [place] [address] PCP - General Family Medicine 05/06/14 Clinical Social Work Aide Relationship Specialty Start Date End Date Humberto Jackson MD [address] [place] [address] PCP - General Family Medicine 05/06/14 Clinical Social Work Aide Relationship Specialty Start Date End Date Humberto Jackson MD [address] [place] [address] PCP - General Family Medicine 05/06/14 Clinical Social Work Aide Relationship Specialty Start Date End Date Humberto Jackson MD [address] [place] [address] PCP - General Family Medicine 05/06/14 Dominik Kelley APRN.KITMAN [address] [place] [address] Boiler Operator Helper Family [facility] 09/14/24 Kenyatta Castaneda PA-C [address] [place] [address] [employer]iler Operator [facility] 09/14/24 Clinical Social Work Aide Relationship Specialty Start Date End Date Humberto Jackson MD [address] [place] [address] PCP - General Family Medicine 05/06/14 Dominik Kelley, GHULAM.KITMAN [address] [place] [address] Boiler Operator Helper Family Medicine 09/14/24 Kenyatta Castaneda PA-C [address] [place] [address] [facility] Clinical Social Work Aide Relationship Specialty Start Date End Date Humberto Jackson MD [address] [place] [address] PCP - General Family Medicine 05/06/14 Dominik Kelley, GHULAM.KITMAN [address] [place] [address] Boiler Operator Helper Family Medicine 09/14/24 Kenyatta Castaneda PA-C [address] [place] [address] Boiler Operator Hel[facility] 09/14/24 Clinical Social Work Aide Relationship Specialty Start Date End Date Humberto Jackson MD [address] [place] [address] PCP - General Family Medicine 05/06/14 Dominik Kelley, HR BUSINESS PARTNER CONSULTANT.KITMAN [address] [place] [address] Boiler Operator Helper Family Medicine 09/14/24 Kenyatta Castaneda PA-C [address] [place] [address] Boiler Operator Helper Family Medicine 09/14/24 Clinical Social Work Aide Relationship Specialty Start Date End Date Humberto Jackson MD [address] [place] [address] PCP - General Family Medicine 05/06/14 Dominik Kelley APRN.KITMAN [address] [place] [address] Boiler Operator Helper Family Medicine 09/14/24 Kenyatta Castaneda PA-C [address] [place] [address] Boiler Operator Helper Family [facility] 09/14/24 Clinical Social Work Aide Relationship Specialty Start Date End Date Humberto Jackson MD [address] [place] [address] PCP - General Family Medicine 05/06/14 Dominik Kelley, GHULAM.KITMAN [address] [place] [address] Boiler Operator Helper Family Medicine 09/14/24 Kenyatta Castaneda PA-C [address] [place] [address] Boiler Operator Hel[facility] Family [facility] 09/14/24 Clinical Social Work Aide Relationship Specialty Start Date End Date Humberto Jackson MD [address] [place] [address] PCP - General Family Medicine 05/06/14 Dominik Kelley, HR BUSINESS PARTNER CONSULTANT.KITMAN [address] [place] [address] Boiler Operator Helper Family [facility] 09/14/24 Kenyatta Castaneda PA-C [address] [place] [address] Boiler Operator Helper Family [facility] 09/14/24 Clinical Social Work Aide Relationship Specialty Start Date End Date Humberto Jackson MD [address] [place] [address] PCP - General Family Medicine 05/06/14 Dominik Kelley, GHULAM.KITMAN [address] [place] [address] Boiler Operator Helper Family [facility] 09/14/24 Kenyatta Castaneda PA-C [address] [place] [address] Boiler Operator Helper [facility] 09/14/24 Clinical Social Work Aide Relationship Specialty Start Date End Date Humberto Jackson MD [address] [place] [address] PCP - General Family Medicine 05/06/14 Dominik Kelley, GHULAM.KITMAN [address] [place] [address] Boiler Operator Helper Family [facility] 09/14/24 Kenyatta Castaneda PA-C [address] [place] [address] Boiler Operator Hel[facility] Family [facility] 09/14/24 Clinical Social Work Aide Relationship Specialty Start Date End Date Humberto Jackson MD [address] [place] [address] PCP - General Family Medicine 05/06/14 Dominik Kelley, HR BUSINESS PARTNER CONSULTANT.KITMAN [address] [place] [address] Boiler Operator Helper Family Medicine 09/14/24 Kenyatta Castaneda PA-C [address] [place] [address] Boiler Operator Helper Family [facility] 09/14/24 Clinical Social Work Aide Relationship Specialty Start Date End Date Humberto Jackson MD [address] [place] [address] PCP - General Family Medicine 05/06/14 Dominik Kelley, HR BUSINESS PARTNER CONSULTANT.KITMAN [address] [place] [address] Boiler Operator Helper Family Medicine 09/14/24 Kenyatta Castaneda PA-C [address] [place] [address] [facility] 09/14/[facility] Clinical Social Work Aide Relationship Specialty Start Date End Date Humberto Jackson MD [address] [place] [address] PCP - General Family Medicine 05/06/14 Dominik Kelley, HR BUSINESS PARTNER CONSULTANT.KITMAN [address] [place] [address] Boiler Operator Helper Family [facility] 09/14/24 Kenyatta Castaneda PA-C [address] [place] [address] Boiler Operator Helper Family Medicine 09/14/24 Clinical Social Work Aide Relationship Specialty Start Date End Date Humberto Jackson MD [address] [place] [address] PCP - General Family Medicine 05/06/14 Dominik Kelley APRN.KITMAN [address] [place] [address] Boiler Operator Helper Family [facility] 09/14/24 Kenyatta Castaneda PA-C [address] [place] [address] Boiler Operator Helper Family [facility] 09/14/24 Clinical Social Work Aide Relationship Specialty Start Date End Date Humberto Jackson MD [address] [place] [address] PCP - General Family Medicine 05/06/14 Dominik Kelley APRN.KITMAN [address] [place] [address] Boiler Operator Helper Family Medicine 09/14/24 Kenyatta Castaneda PA-C [address] [place] [address] Boiler Operator Helper Family [facility] 09/14/24 Clinical Social Work Aide Relationship Specialty Start Date End Date Humberto Jackson MD [address] [place] [address] PCP - General Family Medicine 05/06/14 Dominik Kelley APRN.KITMAN [address] [place] [address] Boiler Operator Helper Family Medicine 09/14/24 Kenyatta Castaneda PA-C [address] [place] [address] Boiler Operator Helper Family [facility] 09/14/24 Clinical Social Work Aide Relationship Specialty Start Date End Date Humberto Jackson MD [address] [place] [address] PCP - General Family Medicine 05/06/14 Dominik Kelley, GHULAM.KITMAN [address] [place] [address] Boiler Operator Helper Family Medicine 09/14/24 Kenyatta Castaneda PA-C [address] [place] [address] [facility] 09/14/24 Clinical Social Work Aide Relationship Specialty Start Date End Date Humberto Jackson MD [address] [place] [address] PCP - General Family Medicine 05/06/14 Dominik Kelley, HR BUSINESS PARTNER CONSULTANT.KITMAN [address] [place] [address] Boiler Operator Helper Family [facility] 09/14/24 Kenyatta Castaneda PA-C [address] [place] [address] Boiler Operator Helper Family [facility] 09/14/24 Clinical Social Work Aide Relationship Specialty Start Date End Date Humberto Jackson MD [address] [place] [address] PCP - General Family Medicine 05/06/14 Dominik Kelley, HR BUSINESS PARTNER CONSULTANT.KITMAN [address] [place] [address] Boiler Operator Helper Family Medicine 09/14/24 Kenyatta Castaneda PA-C [address] [place] [address] Boiler Operator Helper Family Medicine 09/14/24 Clinical Social Work Aide Relationship Specialty Start Date End Date Humberto Jackson MD [address] [place] [address] PCP - General Family Medicine 05/06/14 Dominik Kelley APRN.KITMAN [address] [place] [address] Boiler Operator Helper Family [facility] 09/14/24 Kenyatta Castaneda PA-C [address] [place] [address] Boiler Operator Helper Family [facility] 09/14/24 Clinical Social Work Aide Relationship Specialty Start Date End Date Humberto Jackson MD [address] [place] [address] PCP - General Family Medicine 05/06/14 Dominik Kelley, GHULAM.KITMAN [address] [place] [address] Boiler Operator Helper Family Medicine 09/14/24 Kenyatta Castaneda PA-C [address] [place] [address] Boiler Operator Helper Family [facility] 09/14/24 Clinical Social Work Aide Relationship Specialty Start Date End Date Humberto Jackson MD [address] [place] [address] PCP - General Family Medicine 05/06/14 Dominik Kelley APRN.KITMAN [address] [place] [address] Boiler Operator Helper Family Medicine 09/14/24 Kenyatta Castaneda PA-C [address] [place] [address] Boiler Operator Helper Family [facility] 09/14/24 Clinical Social Work Aide Relationship Specialty [place] [address] [place] [address] PCP - General Family Medicine 05/06/14 Dominik Kelley APRN.KITMAN [address] [place] [address] Boiler Operator Helper Family Medicine 09/14/24 Kenyatta Castaneda PA-C [address] [place] [address] Boiler Operator Helper Family [facility] 09/14/24 Clinical Social Work Aide Relationship Specialty Start Date End Date Humberto Jackson MD [address] [place] [address] PCP - General Family Medicine 05/06/14 Dominik Kelley APRN.KITMAN [address] [place] [address] Boiler Operator Helper Family [facility] 09/14/24 Kenyatta Castaneda PA-C [address] [place] [address] Boiler Operator Helper [facility] 09/14/24 Clinical Social Work Aide Relationship Specialty Start Date End Date Humberto Jackson MD [address] [place] [address] PCP - General Family Medicine 01/13/25 Dominik Kelley, GHULAM.KITMAN [address] [place] [address] Boiler Operator Helper Family [facility] 09/14/24 Kenyatta Castaneda PA-C [address] [place] [address] Boiler Operator Helper [facility] 09/14/24 Clinical Social Work Aide Relationship Specialty Start Date End Date Humberto Jackson MD [address] [place] [address] PCP - General Family Medicine 01/13/25 Dominik Kelley, GHULAM.KITMAN [address] [place] [address] Boiler Operator Helper Family [facility] 09/14/24 Kenyatta Castaneda PA-C [address] [place] [address] Boiler Operator Helper Family [facility] 09/14/24 Clinical Social Work Aide Relationship Specialty Start Date End Date Humberto Jackson MD [address] [place] [address] PCP - General Family Medicine 01/13/25 Dominik Kelley, HR BUSINESS PARTNER CONSULTANT.KITMAN [facility] [place] [address] Boiler Operator Helper Family Medicine 09/14/24 Kenyatta Castaneda PA-C [address] [place] [address] Boiler Operator Helper Family Medicine 09/14/24 Clinical Social Work Aide Relationship Specialty Start Date End Date Humberto Jackson MD [address] [place] [address] PCP - General Family Medicine 01/13/25 Dominik Kelley APRN.KITMAN [address] [place] [address] Boiler Operator Helper Family Medicine 09/14/24 Kenyatta Castaneda PA-C [address] [place] [address] Boiler Operator Helper Family [facility] 09/14/24 Clinical Social Work Aide Relationship Specialty Start Date End Date Humberto Jackson MD [address] [place] [address] PCP - General Family Medicine 01/13/25 Dominik Kelley APRN.KITMAN [address] [place] [address] Boiler Operator Helper Family Medicine 09/14/24 Kenyatta Castaneda PA-C [address] [place] [address] Boiler Operator Helper Family Medicine 09/14/24 Clinical Social Work Aide Relationship Specialty Start Date End Date Humberto Jackson MD [address] [place] [address] PCP - General Family Medicine 01/13/25 Dominik Kelley APRN.KITMAN [address] [place] [address] Boiler Operator Helper Family Medicine 09/14/24 Kenyatta Castaneda PA-C [address] [place] [address] Boiler Operator Helper Family [facility] 09/14/24 Clinical Social Work Aide Relationship Specialty Start Date End Date Humberto Jackson MD [address] [place] [address] PCP - General Family Medicine 01/13/25 Dominik Kelley APRN.[facility] [address] [place] [address] [facility] 09/14/24 02/23/25 Kenyatta Castaneda PA-C [address] [place] [address] [facility] 09/14/24 Clinical Social Work Aide Relationship Specialty Start Date End Date Humberto Jackson MD [address] [place] [address] PCP - General Family Medicine 01/13/25 Kenyatta Castaneda PA-C [address] [place], [place] [address] [facility] 09/14/24 Clinical Social Work Aide Relationship Specialty Start Date End Date Humberto Jackson MD [address] [place], [place] [address] PCP - General Family Medicine 01/13/25 Kenyatta Castaneda PA-C [address] [place] [address] [facility] 09/14/24 Clinical Social Work Aide Relationship Specialty Start Date End Date Humberto Jackson MD [address] [place] [address] PCP - General Family Medicine 01/13/25 Kenyatta Castaneda PA-C [address] [place] [address] [employer] Family Medicine 09/14/24 Clinical Social Work Aide Relationship Specialty Start Date End Date Humberto Jackson MD [address] [place] [address] PCP - General Family Medicine 05/06/14 01/12/25 Humberto Jackson MD [address] [place] [address] PCP - General Family Medicine 01/13/25 Dominik Kelley APRN.KITMAN [address] [place] [id number] [employer] Family [facility] 09/14/24 02/23/25 Kenyatta Castaneda PA-C [address] [place] [id number] [employer] Family [facility] 09/14/24 Clinical Social Work Aide Relationship Specialty Start Date End Date Humberto Jackson MD [address] [place] [id number] PCP - General Family Medicine 01/13/25 Dominik Kelley APRN.KITMAN [address] [place] [id number] [employer] Family [facility] 03/10/25 Kenyatta Castaneda PA-C [facility] [place] [address] [employer] Family Medicine 03/10/25 Clinical Social Work Aide Relationship Specialty Start Date End Date Humberto Jackson MD [address] [place] [address] [id number] PCP - General Family [facility] 01/13/25 Dominik Kelley APRN.KITMAN [address] [place] [address] [phone] [facility] 03/10/25 Kenyatta Castaneda PA-C [address] [place] [address] [phone] [facility] 03/10/25 Clinical Social Work Aide Relationship Specialty Start Date End Date Humberto Jackson MD [address] [place] [address] [phone] PCP - [facility] 01/13/25 Dominik Kelley APRN.KITMAN [address] [place] [address] [phone] [facility] 03/10/25 Kenyatta Castaneda PA-C [facility] [place], [place] [phone] [facility] 03/10/25 Goals (unrecognized section and content) Goals [...] BE BASED ON THE PRIMARY CLINICAL RECORDS. [employer] provides no warranty or guarantee of the accuracy or completeness of information in this document.
--- NOTE | 2025-03-16 15:09 | PCM.HP.STD ---
[facility] - General General Date of Admission: 03/16/25 Date of Service: 03/16/25 Chief Complaint: Weakness/Dyspnea/Tachycardia HPI Narrative BIANCA DELAROSA, is a 49 M who presented to the emergency department at [facility] on 03/16/2025 with weakness, exertional dyspnea and exertional tachycardia. Patient reports that over the last 4 months or so he has had unexplained weight loss and slowly worsening generalized weakness with exertional dyspnea and exertional tachycardia. Yesterday symptoms were dramatically worse and he almost felt like he was going to pass out. He had no fever or chills. He was noted to have an anemia with a hemoglobin of 9 about a week ago with previous hemoglobin being between 14-15 12 months ago. He was scheduled have a colonoscopy later this month over at [facility]. He denies noting any black tarry stools or blood in his stool. He states that people have told him he he looks more pale than typical but he had not noticed any change. He states he has not been as hungry and has had some early satiety. Vital signs on presentation showed temperature of 98.4, heart rate 99, respiratory rate 18, blood pressure is 144/88 and pulse ox was 99% on room air. CBC shows a normal white count but he has a microcytic anemia with a hemoglobin of 7.2. Platelet count is normal. Coags were normal. Chemistry panel was unremarkable. Glucose was 238. Initial troponin was 10 and repeat was 6. EKG is sinus rhythm and shows no ST-T wave changes concerning for acute ischemia and has normal intervals. Chest x-ray showed no acute process. CT of the abdomen pelvis was markedly abnormal with a mildly distended stomach secondary to gastric pylorus circumferential wall thickening and resultant luminal narrowing with findings concerning for underlying obstructive gastric mass or outlet obstruction, multiple prominent retroperitoneal lymph nodes and diffuse nodularity within the anterior mesentery and bilateral paracolic gutters concerning for peritoneal carcinomatosis. There were also multiple sclerotic osseous lesions that were concerning for osseous metastasis. Given his symptomatic anemia, he was given a unit of blood and the case was discussed with gastroenterology who will see the patient in consultation tomorrow for probable EGD. [facility] Medical History History of rectal abscess Multiple thyroid nodules Restrictive airway disease Abnormal chest CT Pneumonia Acute respiratory failure Shortness of breath Community acquired pneumonia Chronic headache Acute respiratory failure with hypoxia GERD (gastroesophageal reflux disease) Anxiety and depression Diabetes mellitus, type II Obesity (BMI 30-39.9) HLD (hyperlipidemia) MIKE (obstructive sleep apnea) Home Medications ?Medication ?Instructions ?Recorded ?Last Taken ?Type esomeprazole magnesium 40 mg 40 mg PO QHS gerd 10/10/17 10/19/18 History capsule,delayed release fenofibrate 50 mg capsule 54 mg PO DAILY cholesterol 10/10/17 10/20/18 History multivitamin 1 ea PO DAILY supplement 10/10/17 10/20/18 History atorvastatin 20 mg tablet 20 mg PO DAILY 03/22/18 10/20/18 History fluoxetine 40 mg capsule 60 mg PO QDAY 03/22/18 10/20/18 History metformin 500 mg tablet 1,000 mg PO BID diabetes 03/22/18 10/20/18 History Fish Oil 1,000 mg Capsule 1,000 mg PO BID 10/20/18 10/20/18 History doxepin 10 mg capsule 10 mg PO QHS 10/20/18 10/19/18 History olanzapine 2.5 mg tablet 2.5 mg PO QHS 10/20/18 10/19/18 History zonisamide 25 mg capsule 25 mg PO DAILY 10/20/18 10/20/18 History empagliflozin 25 mg tablet 25 mg PO DAILY #30 tabs 10/22/18 Unknown Rx buspirone 15 mg tablet mg 04/14/23 Unknown History duloxetine 60 mg capsule,delayed mg PO 04/14/23 Unknown History release fluticasone propionate 50 1 spray intranasal DAILY PRN 04/14/23 Unknown History mcg/actuation nasal allergic symptoms spray,suspension insulin lispro protamine-lispro subcut 04/14/23 Unknown History 100 unit/mL (75-25) subcutaneous pen methylphenidate HCl 10 mg biphasic mg PO 04/14/23 Unknown History 50-50 capsule,extended release amoxicillin 875 mg-potassium 1 tab PO Q12H #14 tabs 03/10/24 Unknown Rx clavulanate 125 mg tablet oxycodone-acetaminophen 5 mg-325 1 - 2 tab PO Q6H PRN pain 3 days 03/10/24 Unknown Rx mg tablet #14 tabs Allergy/AdvReac Type Severity Reaction Status Date / Time citalopram Allergy Unknown Unknown Verified 03/16/25 12:07 venlafaxine Allergy Unknown Unknown Verified 03/16/25 12:07 metoclopramide (From Reglan) Allergy weirds me Verified 03/16/25 12:07 out sertraline (From Zoloft) Allergy sexual Verified 03/16/25 12:07 side effects topiramate (From Topamax) Allergy Unknown Verified 03/16/25 12:07 Family History Father Colon cancer at age 53 Heart disease Myocardial infarction Surgical History Hx of drainage of abscess (~04/2023) Hx of appendectomy Hx of tonsillectomy Social History (Updated 03/16/25 @ 15:[address] 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 Smoking Status: Never smoker second hand exposure: No alcohol intake: never substance use type: does not use caffeine: Yes what type of physical activity do you participate in: none frequency: does not exercise seatbelt use: always ROS Constitutional Constitutional: Reports anorexia, change in weight, fatigue, malaise and weakness; Denies chills, fever(s), night sweats or other Eyes Eyes: Denies blurry vision, change in eye color, change in vision, discharge from eye(s), double vision, erythema, eye pain, loss of vision or other ENT HEENT: Denies abnormal hearing, dysphagia, ear pain, epistaxis, headache(s), hearing loss, nasal congestion, nasal discharge, post nasal drip, sinus pressure, sore throat or other Cardiovascular Cardiovascular: Reports dyspnea on exertion; Denies chest pain, claudication, edema, lightheadedness, orthopnea, palpitations, paroxysmal nocturnal dyspnea, rapid heart rate, syncope or other Respiratory/Chest Respiratory/Chest: Reports dyspnea and shortness of breath with exertion; Denies cough, excessive phlegm production, hemoptysis, productive cough, shortness of breath at rest, wheezing or other Gastrointestinal Gastrointestinal: Reports dyspepsia, nausea and vomiting; Denies abdominal pain, coffee ground emesis, constipation, diarrhea, hematemesis, hematochezia, loose stools, melena or other Genitourinary Genitourinary: Denies burning urination, difficulty urinating, dysuria, hematuria, nocturia, urinary frequency, urinary hesitancy, urinary incontinence, urinary urgency or other Musculoskeletal Musculoskeletal: Denies arthralgias, back pain, joint pain, joint stiffness, joint swelling, myalgias, neck pain or other Neurologic Neurologic: Denies abnormal gait, abnormal speech, confusion, disequilibrium, dizziness, focal weakness, headache(s), numbness, paresthesias, seizure-like activity, seizures, syncope, tingling, tremor(s) or other Psychiatric Psychiatric: Denies anxiety, depression, homicidal ideation, suicidal ideation or other Endocrine Endocrinology: Denies change in body appearance, cold intolerance, excessive sweating, heat intolerance, polydipsia, polyuria or other Hematologic/Lymphatic Hematologic/Lymphatic: Denies anemia, easy bleeding, easy bruising, lymphadenopathy or other Allergic/Immunologic Allergic/Immunologic: Denies rhinitis, hives, eczemia, asthma or other Vital Signs Vital Signs Vital Signs: 03/16/25 12:07 03/16/25 12:07 03/16/25 12:20 Temperature 98.4 F Temperature Source Oral Pulse Rate 99 Respiratory Rate 18 Respiratory Effort Normal Non-Labored Respiratory Depth Normal Respiratory Pattern Normal Blood Pressure 146/88 H Blood Pressure Mean 107 Blood Pressure Source Blood Pressure Position Blood Pressure Location Pulse Ox 99 Oxygen Delivery Method Room Air Room Air Room Air 03/16/25 13:07 03/16/25 13:15 03/16/25 13:30 Temperature Temperature Source Pulse Rate 98 96 Respiratory Rate 16 24 H Respiratory Effort Respiratory Depth Respiratory Pattern Blood Pressure 123/90 H Blood Pressure Mean 100 Blood Pressure Source Blood Pressure Position Blood Pressure Location Pulse Ox 95 98 Oxygen Delivery Method 03/16/25 13:30 03/16/25 13:30 03/16/25 13:45 Temperature Temperature Source Pulse Rate 94 Respiratory Rate 17 Respiratory Effort Respiratory Depth Respiratory Pattern Blood Pressure 123/90 H 123/90 H 131/89 H Blood Pressure Mean 100 100 100 Blood Pressure Source Blood Pressure Position Blood Pressure Location Pulse Ox 95 Oxygen Delivery Method 03/16/25 14:00 03/16/25 14:15 03/16/25 14:30 Temperature Temperature Source Pulse Rate 89 91 Respiratory Rate 23 H 23 H Respiratory Effort Respiratory Depth Respiratory Pattern Blood Pressure 132/87 H 134/85 H 137/89 H Blood Pressure Mean 100 100 104 Blood Pressure Source Blood Pressure Position Blood Pressure Location Pulse Ox 93 92 Oxygen Delivery Method 03/16/25 14:35 03/16/25 14:40 03/16/25 14:55 Temperature 98.5 F 98.5 F 98.1 F Temperature Source Oral Oral Oral Pulse Rate 92 90 97 Respiratory Rate 20 H 27 H 20 H Respiratory Effort Respiratory Depth Respiratory Pattern Blood Pressure 137/89 H 137/89 H 109/69 Blood Pressure Mean 105 105 82 Blood Pressure Source Monitor Monitor Monitor Blood Pressure Position Semi-Fowlers Semi-Fowlers Semi-Fowlers Blood Pressure Location Right Arm Right Arm Right Arm Pulse Ox 95 93 94 Oxygen Delivery Method Room Air Room Air Room Air Weight Weight: 122.47 kg Body Mass Index (BMI) 34.7 Physical Exam Const alert, oriented x3 and no apparent distress; Negative for average body habitus Constitutional Narrative: Very pleasant, obese, white male, sitting up in bed, at bedside, patient appears comfortable, does not appear toxic General Appearance: cooperative HEENT normocephalic, head/scalp atraumatic, hearing grossly normal bilaterally and moist oral mucous membranes Eyes Eyes Narrative: Significant conjunctiva pallor bilaterally, no scleral icterus Neck supple Neck Narrative: Neck is short and thick but trachea is midline Resp normal respiratory effort, no retractions, no use of accessory muscles and clear to auscultation bilaterally Auscultation: Negative for rales, rhonchi or wheezes Cardio regular rhythm, S1 normal heart sound, S2 normal heart sound, no murmurs, no rub, no gallops and no clicks Cardio Narrative: Mild sinus tachycardia GI normal to inspection, nondistended, normoactive bowel sounds, soft to palpation and non-tender Extremity no clubbing, cyanosis or edema Extremity Narrative: Pedal and radial pulses are 2+ Skin skin turgor normal, no jaundice, no petechiae and no mottling Skin Narrative: Skin is relatively pale Neuro oriented x3, moves all extremities and no focal motor deficits Speech: speech normal Psych affect normal Psych Narrative: Extremely pleasant, eye contact is good and patient interacts appropriately Results Lab / Micro Data 03/16/25 12:29 03/16/25 12:29 Labs: Laboratory Results - last 24 hr 03/16/25 12:29: WBC 7.9, RBC 3.16 L, Hgb 7.2 L, Hct 24.3 L, MCV 76.9 L, MCH 22.8 L, MCHC 29.6 L, RDW Std Deviation 39.8, RDW Coeff of Katie 14.5, Plt Count 399, MPV 11.5, Immature Gran % (Auto) 0.500, Neut % (Auto) 60.3, Lymph % (Auto) 30.2, [place] % (Auto) 6.1, Eos % (Auto) 2.0, Baso % (Auto) 0.9, Absolute Neuts (auto) 4.8, Absolute Lymphs (auto) 2.38, Nucleated RBC % 0.3, Sodium 136, Potassium 3.9, Chloride 102, Carbon Dioxide 22.2, Anion Gap 12, BUN 13, Creatinine 0.83, Estim Creat Clear Calc 148.05, Est GFR (MDRD) Non-Af 107, BUN/Creatinine Ratio 15.6, Glucose 238 H, Calcium 8.9, Troponin T High Sens 10 03/16/25 13:12: Blood Type O POSITIVE, Antibody Screen NEGATIVE, Crossmatch See Detail 03/16/25 14:37: Troponin T Hi Sens 2 Hr 6 Micro: Microbiology 03/16/25 13:16 Stool Stool Occult Blood (YASMINE) - Final Imaging Radiology Impression Chest X-Ray 03/16/25 12:37 IMPRESSION: No acute process Reading [facility] Ab[facility]/Pelvis CT 03/16/25 13:10 IMPRESSION: 1. Mildly distended stomach, secondary to gastric pylorus circumferential wall thickening and resultant luminal narrowing. Findings concerning for an underlying obstructive gastric mass/outlet obstruction. Recommend further evaluation with endoscopy. 2. Multiple prominent-mildly enlarged retroperitoneal nodes. 3. Diffuse nodularity within the anterior mesentery and bilateral paracolic gutters, concerning for peritoneal carcinomatosis. 4. Multiple sclerotic osseous lesions concerning for osseous metastasis. Reading Location: [facility] Assessment & Plan Assessment/Plan (1) Gastric mass: (2) Symptomatic anemia: (3) Weight loss: (4) Microcytic anemia: PLAN: Plan Severe microcytic anemia - CT of the abdomen and pelvis shows gastric outlet obstruction with probable mass and metastatic disease - Start Protonix drip - Suspect anemia is from the mass bleeding - Cycle hemoglobin every 6 hours - Transfuse 1 unit packed red blood cells since patient is so symptomatic - Will give IV iron since iron studies are indicative of severe iron deficiency - Full liquid diet for now with supplements given weight loss and n.p.o. after midnight - Consult gastroenterology-Case was discussed with Dr. Martinez by the emergency department - Anticipate EGD tomorrow Suspected upper GI bleed secondary to gastric pyloric mass - Protonix drip as noted - GI consultation for anticipated EGD tomorrow Gastric mass - Appears to have significant metastatic disease including carcinomatosis and bony mets on CT of the abdomen pelvis - Will need biopsy for identification to drive treatment and then outpatient follow-up with oncology and possibly cardiothoracic surgery/general surgery Severe malnutrition with severe weight loss - Patient with dramatic weight loss over the last couple months that was unintentional - Likely related to early satiety - Full liquid diet for now with supplements as ordered - Consult dietitian for ongoing recommendations GERD - Hold home PPI - IV Protonix drip for now MIKE - Last recommendations for CPAP was 15 cmH2O - CPAP ordered - Patient okay to bring in a home unit if able DM-2 - Hold home oral agents - High-dose SSI for now - Patient is hyperglycemic on admission and may need basal insulin but will obtain trends first - Check hemoglobin A1c -Accu-Cheks as ordered Hyperlipidemia - Continue home atorvastatin - Continue home fenofibrate Depression/anxiety/ADHD - Hold home methylphenidate - Continue home duloxetine - Continue home doxepin - Continue home BuSpar - Continue home olanzapine DVT prophylaxis - SCDs - Chemoprophylaxis on hold due to GI bleed CODE STATUS - Full code Charges/Coding Visit Charges Inpatient E&M: 47368 Init Hosp L2
[2025-03-16 15:13] LABS: Platelet Count 395 K/mm3 (150-450); RET-HE 21.4 pg (30-35); Reticulocyte Count 4.05 % (0.5-1.5)
--- OUTSIDE RECORDS SUMMARY | 2025-03-16 15:14 | XMS RPT_ITS | CCD ---
Author Organization [facility] Care Team Providers Care Sweatband Perforator Name Role Phone Alejandro Calderon Unavailable Unavailable Humberto Jackson Unavailable Unavailable Humberto Jackson Unavailable Unavailable Ortiz, Nelly Unavailable Unavailable Humberto Jackson Unavailable Unavailable Humberto Jackson Unavailable Unavailable Humberto Jackson MD Primary Care Provider Humberto Jackson MD Primary Care Provider Humberto Jackson MD Primary Care Provider [phone] Humberto Jackson MD Primary Care Provider Dr. Humberto Jackson Primary Care Provider Dr. Macey Merchant Emergency Provider Dr. Prince Villanueva Attending Provider Dr. Prince Villanueva Other Provider Dr. Prince Villanueva Admit Provider Humberto Jackson MD Primary Care Provider Andre MOULTON, Efren Unavailable Humberto Jackson MD Primary Care Provider [phone] Humberto Jackson MD Primary Care Provider [phone] Prince Villanueva Attending Unavailable Prince Villanueva Admitting [...] HUMBERTO VLADIMIR Primary Care Unavailspike olivia Knguy WEIGH BOX TENDER.MECHANICAL MANUFACTURING TECHNICIAN, Dominik Unavailable Kenyatta Castaneda PA-C Unavailable TORRES MONACO Referring Unavailable MANUEL, HUMBERTO A Primary Care Unavailable MANUEL, HUMBERTO A Referring Unavailable MANUEL, HUMBERTO A Primary Care Unavailable MANUEL, HUMBERTO A Primary Care Unavailable JA MCKEON Referring Unavailable Humberto Jackson MD Primary Care Provider Alfie WEIGH BOX TENDER.MECHANICAL MANUFACTURING TECHNICIAN, Dominik Unavailable LISSY BOWMAN Attending Unavailable MANUEL, HUMBERTO A Referring Unavailable MANUEL, HUMBERTO A Primary Care Unavailable JA MCKEON Attending Unavailable MANUEL, HUMBERTO A Primary Care Unavailable KENYATTA CASTANEDA Referring Unavailable MANUEL, HUMBERTO A Primary Care Unavailable Humberto Jackson MD Primary Care Provider [phone] Alfie WEIGH BOX TENDER.MECHANICAL MANUFACTURING TECHNICIAN, Dominik Unavailable Kenyatta Castaneda PA-C Unavailable MANUEL, [...] Drug Allergy 10-22-19 15 Other: See Comments [facility] Work Phone: (20 sources) Metoclopramide; Translations: [METOCLOPRAMIDE HCL] Drug Allergy 01-25-20 07 Unknown [facility] Work Phone: (20 sources) Sertraline; Translations: [SERTRALINE HCL] Drug Allergy 10-22-19 15 Other: See Comments [facility] Work Phone: (20 sources) topiramate; Translations: [TOPIRAMATE] Drug Allergy 02-05-20 14 Mental Status Change [facility] Work Phone: (20 sources) venlafaxine; Translations: [VENLAFAXINE ANALOGUES] Drug Allergy 10-22-19 15 Other: See Comments [facility] Work Phone: (2 sources) Citalopram Drug Allergy 03-06-20 19 Unknown [facility] (2 sources) Metoclopramide Drug Allergy 03-06-20 19 weirds me out [facility] (2 sources) Sertraline Drug Allergy 03-06-20 19 sexual side effects [facility] (1 source) Citalopram Drug Allergy 03-13-20 24 [facility] Repository (1 source) Metoclopramide Drug Allergy 03-13-20 24 [facility] Rep[facility] (1 source) Sertraline Drug Allergy 03-13-20 24 [facility] Rep[facility] (1 source) topiramate Drug Allergy 03-13-20 24 [facility] Rep[facility] (1 source) venlafaxine Drug Allergy 03-13-20 24 [facility] Rep[facility] (1 source) ALLERGIES NOT ON FILE; Translations: [ALLERGIES NOT ON FILE] Propensity to adverse reactions (disorder) [facility] Medications Current Medications Medication Drug Class(es) Dates Sig (Normalized) Sig (Original) [id number] 200 actuat albuterol 0.09 mg/actuat metered dose [...] on above: Take 1 capsule by mo [facility] daily at bedtime. DULoxetine 60 mg [...] once daily. Take 1 capsule by mo [facility] once daily. fenofibrate 120 mg oral [...] Comment on above: Take 1 tablet by [facility] once daily. ferrous sulfate 325 mg [...] rhinitis , Eustachian tube dysfunction Use 1 Turtlepoint in each nostril once daily. Rinse mouth after use. 1 Bottle 11 09/03/2014 07/07/2023 Discontinued Comment on above: Use 1 Turtlepoint in each nostril once daily. Rinse mouth [...] on above: Take 1 capsule by mo [facility] once daily for 30 days. Multivitamin preparation (2 sources) Start: 10-10-19 18 Multivitamin Active 1 EACH PO DAILY October 10, 2017 1:00am multivitamin tablet (20 sources) Start: 12-17-19 15 take 1 tablet by mouth once daily multivitamin tablet Take 1 tablet by mouth once daily. 0 12/16/2014 Active Comment on above: [facility]. OLANZapine 5 mg oral tablet [...] 07 11April 15, 2023 polyethylene glycol 3350 782805 mg / potassium chloride 2970 mg / sodium bicarbonate 6740 mg / sodium chloride 5860 mg / sodium sulfate 21973 mg powder for oral solution (3 sources) [...] on above: Take 1 capsule by mo [facility] once daily. Completed/Discontinued Medications Medication Drug [...] choice. LIFETIME SUPPLIES. SD Card. Download to [email or web address]. [employer] Device 09/28/2017 08/19/2024 Discontinued Start: 09-28-2017 CPAP AUTO PAP 5-20 cmH20, CHIN STRAP, heated HUMIDITY, mask of patient's choice. LIFETIME SUPPLIES. SD Card. Download to [email or web address]. [employer] Device 09/28/2017 Active Comment on above: AUTO PAP 5-20 cmH20, CHIN STRAP, heated HUMIDITY, mask of patient's choice. LIFETIME SUPPLIES. SD Card. Download to [email or web address]. empagliflozin 25 mg oral tablet (17 sources) [...] complication, without long-term current use of insulin ([facility]) Take 1 tablet by mouth daily before breakfast. X 30 days 30 tablet 0 10/21/2022 01/27/2023 Discontinued Start: 10-21-2022 End: 01-27-2023 take 1 tablet by mouth once daily before breakfast semaglutide (RYBELSUS) 7 mg tablet Indications: Type 2 diabetes mellitus without complication, without long-term current use of insulin ([facility]) Take 1 tablet (7 mg) by mouth daily before breakfast. (Start after having taken 3mg daily x 30 days) 30 tablet 5 10/21/2022 01/27/2023 Discontinued Start: 03-04-2022 End: 06-07-2022 semaglutide (OZEMPIC) 0.25 m g or 0.5 mg(2 mg/1.5 mL) pen injector Indications: Type 2 diabetes mellitus without complication, without long-term current use of insulin ([facility]) Inject 0.25 mg weekly x 4 [...] (19 sources) Drug therapy finding; Translations: [Other longterm (current) drug therapy] Onset: 09-26-2018 09-26-2018 Episodic Other aftercare (20 sources) Patient encounter status; Translations: [Other rodent exterminator (current) drug therapy] Onset: 07-28-2020 07-28-2020 Episodic Other aftercare (1 source) Other longterm (current) drug therapy; Translations: [Medication management] Onset: [...] Test Name Value Interpretation Reference Range Facility [facility] 03-10-2025 CNOV Office Visit (GENSWS ) -- BIANCA DELAROSA ([id number]) 1975 M Date Time Provider Department 03/10/25 8:30 AM [facility] your visit today, we recorded the following information about you: Pulse Respiration Blood pressure Weight 98/minute 16/minute 114/74 125.4 kg Nelda Quigley, GHULAM.MECHANICAL MANUFACTURING TECHNICIAN 03/10/2025 9:21 AM Signed HISTORY AND PHYSICAL Bianca Delarosa : 1975 REFERRING PHYSICIAN: Kenyatta Castaneda [address] [place] [address] CHIEF COMPLAINT: Patient presents with: low hgb: [...] GERD and dysphasia with Dr. Bowman at [facility] on 04/04- she does not complete [...] colonoscopy was 08/[address] Bliss at [facility]. Sedation: Midazolam 7 mg IV, Fentanyl 100 [...] mL for a 90 day supply. Insulin Potwin, Disposable, (DROPLET PEN NEEDLE) 31 gauge x [...] Acute hypoxemic respiratory failure due to COVID-19 ([facility]) 09/24/2023 Agitation 03/31/2014 Allergic rhinitis 03/31/2014 Allergy-induced asthma ([facility]) 03/31/2014 Mild intermitant Attention deficit disorder [...] liver 10/28/19 (more content not included)... Normal [facility] CNPNon 03-10-2025 CNPN Telephone (FAMPWS) -- BIANCA DELAROSA ([id number]) 1975 M Date Time Provider Department 03/10/25 KENYATTA CASTANEDA [facility] During your visit today, we recorded the [...] Date Reviewed: 03/10/2025 Reviewed by: Nelda Quigley APRN.MECHANICAL MANUFACTURING TECHNICIAN - Fully Assessed Reason for Visit: Results, Lab [1201] Primary Visit Diagnosis:Iron deficiency anemia, unspecified iron deficiency anemia type [D50.9] Order(s):ferrous sulfate 325 mg (65 mg iron) tabletTake 1 tablet by mouth two times a day with meals.Disp: 60 tabletRfl: 0 COMPLETE BLOOD COUNT AND DIFFERENTIAL [SQCBCDIF] Order #: [id number] FUTURE IRON AND TIBC [SQIRON] Order #: [id number] FUTURE Prescriptions as of 03/10/2025 - peg [...] for a 90 day supply. - Insulin Potwin, Disposable, (DROPLET PEN NEEDLE) 31 gauge x [...] (HCC) [ (more content not included)... Normal [facility]IAN[facility] DEL[facility] ([id number]) 1975 M Date Time Provider Department 03/07/25 KENYATTA CASTANEDA [facility] During your visit today, we recorded the [...] for a 90 day supply. - Insulin Potwin, Disposable, (DROPLET PEN NEEDLE) 31 gauge x [...] *09/26/2018 GERD without esophagitis [K21.9] 09/26/2018 Lump [[id number]] 11/16/2019 ISABELLA (generalized anxiety disorder) [F41.1] 06/22/2020 [...] Status:Closed by KENYATTA ROSE on 03/07/25 [facility] 03-07-2025 Ferritin [Mass/Vol] 5.9 ng/mL Low 30.3 - 565.7 ng/mL [facility] FOLATE, SERUMon 03-07-2025 Folate [Mass/Vol] 8.7 ng/mL 4.7 - PINF ng/mL [facility] Ferritin SerPl-mCncon 2024 Ferritin [Mass/Vol] 5.9 ng/mL Low 30.3-565.7 [facility] Comment on above: Order Comment: Speci men Type: BLOOD SPECIMEN [facility] Facility[facility] Address: [address] [place] [address] Performed By: #### 2 276-4, 2283-8, 9, 03719-7 #### [facility] CLIA [id number] 1 [place] [address] [place] Folate SerPl-mCncon 03-07-20 25 Folate [Mass/Vol] 8.7 ng/mL Normal >4.7 [facility] Comment on above: Order Comment: Speci men Type: BLOOD SPECIMEN [facility]ing Facility: [facility] Address: [address] [place] [address] Performed By: #### 2 276-4, 2283-8, 2132-06, #### [facility] CLIA [id number] [address] [place] Iron and Iron binding capaci ty panelon 03-07-2025 Iron [Mass/Vol] 17 ug/dL Low 41 - 186 ug/dL [facility] Iron binding capacity [Mass/Vol] 387 ug/dL High 232 - 386 ug/dL [facility] Iron saturation [Mass fraction] 4.4 % Low 15.0 - 57.0 % [facility] Iron [Mass/Vol] 17 ug/dL Low 41-186 [facility] Comment on above: Order Comment: Speci men Type: BLOOD SPECIMEN Ordering Facility: [facility] Address: [facility] [place] [address] Performed By: #### 2 276-4, 2283-8, 9, 92268-2 #### [facility] CLIA [id number] 1 [place] [address] [place] Iron binding capacity [Mass/Vol] 387 ug/dL High 232-386 [facility] Comment on above: Order Comment: Speci men Type: BLOOD SPECIMEN Ordering Facility: [facility] Address: [address] [place] [address] Performed By: #### 2 276-4, 8, 2132-06, #### [facility] CLIA [id number] [address] STATES OF [facility] Iron saturation [Mass fraction] 4.4 % Low 15.0-57.0 [facility] Comment on above: Order Comment: Speci men Type: BLOOD SPECIMEN [facility]ing Facility: [facility] Address: [address] [place] [address] Performed By: #### 2 276-4, 8, 2132-06, #### [facility] CLIA [id number] [address] [place] [facility] No Panel Informationon 03-07 Interpretation and review of laboratory results Normal [facility] Interpretation and review of laboratory results Abnormal [facility] VITAMIN B12on 03-07-2025 Cobalamin (Vitamin B12) [Mass/Vol] 295 pg/mL 232 - 1245 pg/mL [facility] Vit B12 SerPl-mCncon 025 Cobalamin (Vitamin B12) [Mass/Vol] 295 pg/mL Normal 232-1245 [facility] Comment on above: Order Comment: Speci men Type: BLOOD SPECIMEN [facility]ing Facility: [facility] Address: [facility] [place] [address] Performed By: #### 2 276-4, 8, 2132-06, #### [facility] CLIA [id number] 1 [place] [address] [place] Basic metabolic 2000 panelon 03-06-2025 Anion gap [Moles/Vol] 14 mmol/L Normal 8-[address] [facility] Comment on above: Order Comment: Speci men Type: BLOOD SPECIMEN [facility]ing Facility: [facility] Address: [address] [place] [address] [place] [address] Performed By: #### 6 768-6, 2132-06, #### [facility] CLIA [id number] [address] [place], [place] [address] [place] Calcium [Mass/Vol] 8.8 mg/dL Normal 8.5-10.2 [facility] Comment on above: Order Comment: Speci men Type: BLOOD SPECIMEN Ordering Facility: [facility] Address: [address] [place] [address] Performed By: #### 6 768-6, 2132-06, #### [facility] CLIA [id number] [address] [place], [place] [address] [place] Chloride [Moles/Vol] 101 mmol/L Normal 98-107 [facility] Comment on above: Order Comment: Speci men Type: BLOOD SPECIMEN Ordering Facility: [facility] Address: [address] [place] [address] Performed By: #### 6 768-6, 2132-06, #### [facility] CLIA [id number] [address] [place], [place] [address] [place] CO2 [Moles/Vol] 22 mmol/L Normal 22-30 [facility] Comment on above: Order Comment: Speci men Type: BLOOD SPECIMEN Ordering Facility: [facility] Address: [address] [place], [place] [address] Performed By: #### 6 768-6, 2132-06, #### [facility] CLIA [id number] [address] [place], [place] [address] [place] Creatinine [Mass/Vol] 0.79 mg/dL Normal 0.73-1.[address] [facility] Comment on above: Order Comment: Speci men Type: BLOOD SPECIMEN [facility]ing Facility[facility] Address: [address] [place], [place] [address] Performed By: #### 6 768-6, 2132-06, #### [facility] CLIA [id number] [address] [place] [address] [place] Creatinine and Glomerular filtration rate.predicted panel (S/P/Bld) 108 mL/min/1.73m??? Normal >=60 [facility] Comment on above: Order Comment: Catherine hendrix Type: BLOOD SPECIMEN [facility] Address: [address] [place] [address] Result Comment: Tia mated Glomerular Filtration Rate [...] GFR. Performed By: #### 6 768-6, 2131-9, 85913-4 #### [facility] CLIA [id number] [address] [place] [address] [place] Glucose [Mass/Vol] 171 mg/dL High 74-99 [facility] Comment on above: Order Comment: Catherine hendrix Type: BLOOD SPECIMEN [facility] Address: [address] [place] [address] Result Comment: The [place] Diabetes Association (ADA) provides guidance for cutoff [...] Standards of Medical Care in Diabetes 2016, [place] Diabetes Association. Diabetes Care. 2016.39(Suppl 1). Performed By: #### 6 768-6, 2131-9, 82357-4 #### [facility] CLIA [id number] [address] [place] [address] [place] Potassium [Moles/Vol] 4.3 mmol/L Normal 3.7-5.[address] [facility] Comment on above: Order Comment: Speci men Type: BLOOD SPECIMEN [facility] Address: [address] [place] [address] Performed By: #### 6 768-6, 2132-06, #### [facility] CLIA [id number] [address] [place], [place] [address] [place] Sodium [Moles/Vol] 137 mmol/L Normal 136-144 [facility] Comment on above: Order Comment: Speci men Type: BLOOD SPECIMEN [facility]ing Facility[facility] Address: [address] [place] [address] Performed By: #### 6 768-6, 2132-06, #### [facility] CLIA [id number] [address] [place] [address] [place] Urea nitrogen [Mass/Vol] 12 mg/dL Normal 9-24 [facility] Comment on above: Order Comment: Speci men Type: BLOOD SPECIMEN [facility] Address: [address] [place] [address] Performed By: #### 6 768-6, 2132-06, #### [facility] CLIA [id number] [address] [place], [place] [address] [place] CBC W Auto Differential pane l (Bld)on 03-06-2025 Basophils (Bld) [#/Vol] 0.06 10*3/uL Normal <0.11 [facility] Comment on above: Order Comment: Speci men Type: BLOOD SPECIMEN [facility] Address: [address] [place] [address] Performed By: #### 6 768-6, 2132-06, #### [facility] CLIA [id number] [address] [place] [address] [place] Basophils/100 WBC (Bld) 0.6 % Normal [facility] Comment on above: Order Comment: Speci men Type: BLOOD SPECIMEN [facility]ing [facility]: [facility] Address: [address] [place] [address] Performed By: #### 6 768-6, 2132-06, #### [facility] CLIA [id number] [address] [place] [address] [place] Differential cell count method Nom (Bld) Auto Normal [facility] Comment on above: Order Comment: Speci men Type: BLOOD SPECIMEN [facility] Address: [address] [place] [address] Performed By: #### 6 768-6, 2132-06, #### [facility] CLIA [id number] [address] [place] [address] [place] Eosinophils (Bld) [#/Vol] 0.13 10*3/uL Normal <0.46 [facility] Comment on above: Order Comment: Speci men Type: BLOOD SPECIMEN [facility] Facility: [facility] Address: [address] [place] [address] Performed By: #### 6 768-6, 2132-06, #### [facility] CLIA [id number] [address] [place] [address] [place] Eosinophils/100 WBC (Bld) 1.3 % Normal [facility] Comment on above: Order Comment: Speci men Type: BLOOD SPECIMEN [facility]: [facility] Address: [address] [place] [address] Performed By: #### 6 768-6, 2132-06, #### [facility] CLIA [id number] [address] [place] [address] [place] Erythrocyte distribution width (RBC) [Ratio] 13.8 % Normal 11.5-15.0 [facility] Comment on above: Order Comment: Speci men Type: BLOOD SPECIMEN Order[facility] Facility: [facility] Address: [address] [place] [address] Performed By: #### 6 768-6, 2132-06, #### [facility] CLIA [id number] [address] [place] [address] [place] Hematocrit (Bld) [Volume fraction] 31.6 % Low 39.0-51.0 [facility] Comment on above: Order Comment: Speci men Type: BLOOD SPECIMEN [facility] Address: [address] [place] [address] Performed By: #### 6 768-6, 2132-06, #### [facility] CLIA [id number] [address] [place] [address] [place] Hemoglobin (Bld) [Mass/Vol] 9.6 g/dL Low 13.0-17.0 [facility] Comment on above: Order Comment: Speci men Type: BLOOD SPECIMEN [facility] Address: [address] [place] [address] Performed By: #### 6 768-6, 2132-06, #### [facility] CLIA [id number] [address] [place] [address] [place] Immature granulocytes (Bld) [#/Vol] 0.04 10*3/uL Normal <0.10 [facility] Comment on above: Order Comment: Speci men Type: BLOOD SPECIMEN Order[facility] Address: [address] [place] [address] Performed By: #### 6 768-6, 2132-06, #### [facility] CLIA [id number] [address] [place] [address] [place] Immature granulocytes/100 WBC (Bld) 0.4 % Normal [facility] Comment on above: Order Comment: Speci men Type: BLOOD SPECIMEN Order[facility] Facility: [facility] Address: [address] [place] [address] Performed By: #### 6 768-6, 2132-06, #### [facility] CLIA [id number] [address] [place] [address] [place] Lymphocytes (Bld) [#/Vol] 2.51 10*3/uL Normal 1.00-4.00 [facility] Comment on above: Order Comment: Speci men Type: BLOOD SPECIMEN [facility] Address: [address] [place] [address] Performed By: #### 6 768-6, 2132-06, #### [facility] CLIA [id number] [address] [place] [address] [place] Lymphocytes/100 WBC (Bld) 25.2 % Normal [facility] Comment on above: Order Comment: Speci men Type: BLOOD SPECIMEN [facility] Address: [address] [place] [address] Performed By: #### 6 768-6, 2132-06, #### [facility] CLIA [id number] [address] [place] [address] [place] MCH (RBC) [Entitic mass] 23.9 pg Low 26.0-34.0 [facility] Comment on above: Order Comment: Speci men Type: BLOOD SPECIMEN [facility] Address: [address] [place] [address] Performed By: #### 6 768-6, 2132-06, #### [facility] CLIA [id number] [address] [place] [address] [place] MCHC (RBC) [Mass/Vol] 30.4 g/dL Low 30.5-36.[address] [facility] Comment on above: Order Comment: Speci men Type: BLOOD SPECIMEN [facility] Address: [address] [place], [place] [address] Performed By: #### 6 768-6, 2132-06, #### [facility] CLIA [id number] [address] [place] [address] [place] MCV (RBC) [Entitic vol] 78.6 fL Low 80.0-100.0 [facility] Comment on above: Order Comment: Speci men Type: BLOOD SPECIMEN [facility] Address: [address] [place] [address] Performed By: #### 6 768-6, 2132-06, #### [facility] CLIA [id number] [address] [place] [address] [place] Monocytes (Bld) [#/Vol] 0.66 10*3/uL Normal <0.87 [facility] Comment on above: Order Comment: Speci men Type: BLOOD SPECIMEN [facility] Address: [address] [place], [place] [address] Performed By: #### 6 768-6, 2132-06, #### [facility] CLIA [id number] [address] [place], [place] [address] [place] Monocytes/100 WBC (Bld) 6.6 % Normal [facility] Comment on above: Order Comment: Speci men Type: BLOOD SPECIMEN [facility] Address: [address] [place], [place] [address] Performed By: #### 6 768-6, 2132-06, #### [facility] CLIA [id number] [address] [place], [place] [address] [place] Neutrophils (Bld) [#/Vol] 6.57 10*3/uL Normal 1.45-7.50 [facility] Comment on above: Order Comment: Speci men Type: BLOOD SPECIMEN [facility] Address: [address] [place] [address] Performed By: #### 6 768-6, 2132-06, #### [facility] CLIA [id number] [address] [place] [address] [place] Neutrophils/100 WBC (Bld) 65.9 % Normal [facility] Comment on above: Order Comment: Speci men Type: BLOOD SPECIMEN [facility] Facility: [facility] Address: [address] [place] [address] Performed By: #### 6 768-6, 2132-06, #### [facility] CLIA [id number] [address] [place] [address] [place] Nucleated RBC (Bld) [#/Vol] 10*3/uL Normal <0.01 [facility] Comment on above: Order Comment: Speci men Type: BLOOD SPECIMEN Ordering Facility: [facility] Address: [address] [place] [address] Performed By: #### 6 768-6, 2132-06, #### [facility] CLIA [id number] [address] [place] [address] [place] Nucleated RBC/100 WBC (Bld) [Ratio] 0.0 /100 WBC Normal [facility] Comment on above: Order Comment: Speci men Type: BLOOD SPECIMEN Ordering Facility: [facility] Address: [address] [place] [address] Performed By: #### 6 768-6, 2132-06, #### [facility] CLIA [id number] [address] [place] [address] [place] Platelet mean volume (Bld) [Entitic vol] 12.7 fL Normal 9.0-12.7 [facility] Comment on above: Order Comment: Speci men Type: BLOOD SPECIMEN Ordering Facility: [facility] Address: [address] [place] [address] Performed By: #### 6 768-6, 9, 16961-5 #### [facility] CLIA [id number] [address] [place] [address] [place] Platelets (Bld) [#/Vol] 427 10*3/uL High 150-400 [facility] Comment on above: Order Comment: Speci men Type: BLOOD SPECIMEN Ordering Facility: [facility] Address: [address] [place] [address] Performed By: #### 6 768-6, 9, 80058-9 #### [facility] CLIA [id number] [address] [place] [address] [place] RBC (Bld) [#/Vol] 4.02 10*6/uL Low 4.20-6.00 [facility] Comment on above: Order Comment: Speci men Type: BLOOD SPECIMEN Ordering Facility: [facility] Address: [address] [place] [address] Performed By: #### 6 768-6, 2132-06, 54822-1 #### [facility] CLIA [id number] [address] [place] [address] [place] WBC (Bld) [#/Vol] 9.97 10*3/uL Normal 3.70-11.00 [facility] Comment on above: Order Comment: Speci men Type: BLOOD SPECIMEN [facility]ing Facility: [facility] Address: [address] [place] [address] Performed By: #### 6 768-6, 2131-9, 59415-0 #### [facility] CLIA [id number] [address] [place] [address] [place] CNOVon 03-06-2025 CNOV Office Visit (FAMPWS ) -- BIANCA DELAROSA ([id number]) 1975 M Date Time Provider Department 03/06/25 [...] Acute hypoxemic respiratory failure due to COVID-19 ([facility]) 09/24/2023 Agitation 03/31/2014 Allergic rhinitis 03/31/2014 [...] prolongation 04/20/2021 Seen [facility] 04/19/2021: Camargo to be benign and related to anti-depressants. [...] Cancer Zaragoza (more content not included)... Normal [facility] TSH SerPl-aCncon 03-06-2025 TSH Qn 2.020 m[IU]/L Normal 0.270-4.200 [facility] Comment on above: Order Comment: Speci men Type: BLOOD SPECIMEN [facility]ing [facility]: [facility] Address: [address] [place] [address] Performed By: #### 6 768-6, 2132-9, 38482-4 #### [facility] CLIA [id number] [address] [place] [address] [place] CNOVon 02-21-2025 CNOV Office Visit (ORMDRG ) -- BIANCA DELAROSA ([id number]) 1975 M Date Time Provider Department 02/21/25 1:30 PM VIKASH BOOTH ORDIONNA During your visit today, we recorded the following information about you: Vikash Booth MD 02/24/2025 7:39 AM Signed ORTHOPAEDIC SHOULDER AND ELBOW SERVICE HISTORY AND PHYSICAL EXAM REFERRING PROVIDER: Elizabeth Suárez [address] [facility] [address] CHIEF COMPLAINT: Bianca is a 49-year-old male [...] Acute hypoxemic respiratory failure due to COVID-19 ([facility]) 09/24/2023 Agitation 03/31/2014 Allergic rhinitis 03/31/2014 Allergy-induced asthma ([facility]) 03/31/2014 Mild intermitant Attention deficit disorder [...] Primary insomnia 07/28/2020 QT prolongation 04/20/2021 Seen [facility] 04/19/2021: Camargo to be benign and related to anti-depressants. [...] WITH MEALS. (more content not included)... Normal [facility] 02-12-2025 [facility] Telephone (AGGENS4) -- BIANCA DELAROSA ([id number]) 1975 M Date Time Provider Department 02/12/25 VARSHA VAUGHN AGGENS4 During your visit today, we recorded the following information about you: Brittany Harvey 02/12/2025 9:55 AM Signed Insurance Verification Insurance Company: [employer] Provider Phone #: [phone] Agent: Nitesh Effective Date: 10/09/20 Call Reference #: [id number] EXCLUDED Allergies As of Date: 02/12/2025 Noted [...] for a 90 day supply. - Insulin Potwin, Disposable, (DROPLET PEN NEEDLE) 31 gauge x [...] *09/26/2018 GERD without esophagitis [K21.9] 09/26/2018 Lump [[id number]] 11/16/2019 ISAEBLLA (generalized anxiety disorder) [F41.1] 06/22/2020 Primary insomnia [...] Encounter Status:Closed by BR[facility]Y [facility] (AGGENS 4[facility] -- BIANCA DELAROSA ([id number]) 1975 M Date Time Provider Department 02/06/25 [...] Callus of foot 12/30/2024 Diabetic eye exam ([facility]) 01/27/2017 Last eye exam: 03/05/2019 Diverticulosis [...] Primary insomnia 07/28/2020 QT prolongation 04/20/2021 Seen [facility] 04/19/2021: Camargo to be benign and related to anti-depressants. [...] Maternal Grand (more content not included)... Normal [facility] CNOVon 01-21-2025 CNOV Office Visit (FAMPWS ) -- BIANCA DELAROSA ([id number]) 1975 M Date Time Provider Department 01/21/25 11:20 AM HUMBERTO JACKSON FAMPWS During your visit today, we recorded the following information about you: Temperature Pulse Respiration Blood pressure 97.8 degrees 88/minute 16/minute 124/88 Weight 129.7 kg Humberto Jackson MD 01/21/2025 12:26 PM Signed Chief [...] on had a URI, fevers and chills. Camargo ok yesterday but feeling winded with activity. [...] Primary insomnia 07/28/2020 QT prolongation 04/20/2021 Seen [facility] 04/19/2021: Camargo to be benign and related to anti-depressants. [...] Family H (more content not included)... Normal [facility] ACTH Plas-mCncon 01-11-2025 Corticotropin (P) [Mass/Vol] 35.5 pg/mL Normal 7.2-63.3 [facility] Comment on above: Order Comment: Speci men Type: BLOOD SPECIMEN [facility]ing Facility: [facility] Address: [address] [place] [address] Result Comment: ACTH Reference Range: 7-10 am: 7.2 - 63.3 pg/mL Performed By: #### 2 141-0 #### [facility] CLIA [id number] [address] [place] [address] [place] INSULIN LIK GR FAC Ion 01-11 INSULIN LIK GR FAC 1 99 ng/mL Normal 67-225 [facility] Comment on above: Order Comment: Speci men Type: BLOOD SPECIMEN [facility]ing [facility] Address: [address] [place] [address] Performed By: #### I LGF1 #### [facility] CLIA [id number] [address] [place] [address] [place] Prolactin SerPl-ncon 01-11 Prolactin [Mass/Vol] 39.1 ng/mL High 4.1-25.1 [facility] Comment on above: Order Comment: Speci men Type: BLOOD SPECIMEN [facility]ing Facility: [facility] Address: [address] [place] [address] Result Comment: Prol actin test is performed using the [employer] Electrochemiluminescence Immunoassay method. Results obtained with different methods or kits cannot be used interchangeably. Performed By: #### 2 842-3 #### [facility] CLIA [id number] [address] [place] [address] [place] CNOVon 01-06-2025 CNOV Office Visit (NEAGCL M) -- BIANCA DELAROSA ([id number]) 1975 M Date Time Provider Department 01/06/25 2:30 PM JA MCKEON NEAGCLM During your visit today, we recorded the following information about you: Pulse Respiration Blood pressure Weight 80/minute 16/minute 126/86 128.2 kg Height 1.88 m Ja Mckeon MD 01/06/2025 3:08 PM Signed NEUROSURGERY CONSULT NOTE Ja Mckeon MD [facility] Date of visit: January 06, 2025 Patient Name: Mr.David Dany Delarosa Date of : 1975 Current Age: [age] year old Sex: male MRN/E# [id number] Last Office Visit: 12/24/2024 Chief Complaint: Patient [...] Primary insomnia 07/28/2020 QT prolongation 04/20/2021 Seen [facility] 04/19/2021: Camargo to be benign and related to anti-depressants. No changes needed. TMJ (temporomandibular joint disorder) 03/31/2014 Right side Type 2 diabetes mellitus without complication, without long-term current use of insulin ([facility]) 01/19/2017 Well adult exam 12/17/2014 Last [...] Kidney Dise (more content not included)... Normal [facility] MRI SHOULDER WO IVCON RTon 0 01-04-2025 MRI SHOULDER WO IVCON RT * * *Final Report* * * DATE OF EXAM: Jan 04 2025 9:08AM [facility] 0240 - MRI SHOULDER WO IVCON [...] capsulitis. Please correlate clinically Mild supraspinatus tendinosis Utility Mechanic: [facility] Transcribe Date/Time: Jan 07 2025 1:34P Dictated by : DAT FERNANDES MD This examination was interpreted and the report reviewed and electronically signed by: DAT FERNANDES MD on Jan 07 2025 1:38PM EST [id number] [facility] 12-30-2024 [facility] Office Visit (FAMWS ) -- W[place]BIANCA ([id number]) 1975 M Date Time Provider Department 12/30/24 [...] on had a URI, fevers and chills. Camargo ok yesterday but feeling winded with activity. 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 Lazaro 03/2018 Multiple thyroid nodules 02/27/2018 US 03/2020 per radiology no further f/u needed.. All benign Biopsy 03/[address] Lazaro. Benign. Obesity, Class II, BMI 35-39.9 10/21/2022 Obstructive sleep apnea syndrome 01/27/2017 On CPAP Other joint derangement, not elsewhere classified, lower leg 03/25/2013 Primary insomnia 07/28/2020 QT prolongation 04/20/2021 Seen [facility] 04/19/2021: Camargo to be benign and related to anti-depressants. [...] Medications on (more content not included)... Normal [facility] XR CHEST 2V FRONTAL/LATon XR CHEST 2V [...] tissues: Unremarkable. IMPRESSION: No acute radiographic abnormality. Utility Mechanic: GORGE Transcribe Date/Time: Dec 30 2024 9:28A Dictated by : DELMI NOGUEIRA MD This examination was interpreted and the report reviewed and electronically signed by: DELMI NOGUEIRA MD on Dec 30 2024 9:29AM EST [id number] Normal [facility] XR Chest PA and Lateralon IMPRESSION: No acute radiographic abnormality. Utility Mechanic: GORGE Transcribe Date/Time: Dec 30 2024 9:28A [...] soft tissues: Unremarkable. DIVISION OF RADIOLOGY Provider, [facility] - 12/30/2024 * * *Final Report* * [...] Unremarkable. IMPRESSION IMPRESSION: No acute radiographic abnormality. Utility Mechanic: PSCB Transcribe Date/Time: Dec 30 2024 9:28A Dictated by : DELMI NOGUEIRA MD This examination was interpreted and the report reviewed and electronically signed by: DELMI NOGUEIRA MD on Dec 30 2024 9:29AM EST [facility] Radiology Study observation (narrative) [facility] XR Chest PA and LateralOrder ed By: Ccjulito Provider on 12-30-2024 [facility] BIANCA DELAROSA ([id number]) 1975 M Date Time Provider Department 12/24/24 [...] for a 90 day supply. - Insulin Potwin, Disposable, (DROPLET PEN NEEDLE) 31 gauge x [...] *09/26/2018 GERD without esophagitis [K21.9] 09/26/2018 Lump [[id number]] 11/16/2019 ISABELLA (generalized anxiety disorder) [F41.1] 06/22/2020 [...] Encounter Status:Closed by AZALEA PENALOZA on 12/24/24 [facility] CNPN Telephone (NEAGCLM) -- BIANCA DELAROSA ([id number]) 1975 M Date Time Provider Department 12/24/24 [...] for a 90 day supply. - Insulin Potwin, Disposable, (DROPLET PEN NEEDLE) 31 gauge x [...] *09/26/2018 GERD without esophagitis [K21.9] 09/26/2018 Lump [[id number]] 11/16/2019 ISABELLA (generalized anxiety disorder) [F41.1] 06/22/2020 [...] Encounter Status:Closed by AZALEA PENALOZA on 12/24/24 [facility] 12-23-2024 [facility] Telephone (FAMPWS) -- BIANCA DELAROSA ([id number]) 1975 M Date Time Provider Department 12/23/24 HUMBERTO JACKSON During your visit today, we recorded the following information about you: Corazon NdiayeMADELINE 12/23/2024 2:48 PM Signed Patient Driss romero got a call from Dr Younger office he does not see patients with pituitary. Assisted with transfer to steel placer, to assist with trying to find Dr [...] for a 90 day supply. - Insulin Potwin, Disposable, (DROPLET PEN NEEDLE) 31 gauge x [...] *09/26/2018 GERD without esophagitis [K21.9] 09/26/2018 Lump [[id number]] 11/16/2019 ISABELLA (generalized anxiety disorder) [F41.1] 06/22/2020 [...] Status:Closed by CORAZON NDIAYE on 12/23/24 Normal [facility] ALKALINE PHOSPHATASE ISOENZY MES (P)on 12-20-2024 ALK PHOS BONE % 31.1 % Normal 10.7-68.3 [facility] Comment on above: Order Comment: Speci men Type: BLOOD SPECIMENOrdering Facility: [facility] Address: [address] [place] [address] Performed By: #### A LKISOP ####[facility] [id number] [place] [address] [place] ALK PHOS LIVER % 51.1 % Normal 26.0-86.2 [facility] Comment on above: Order Comment: Speci men Type: BLOOD SPECIMENOrdering Facility: [facility] Address: [address] [place] [address] Performed By: #### A LKISOP ####[facility] [id number] [address] [place] BONE FRACTION 52.6 U/L Normal 12.9-52.6 [facility] Comment on above: Order Comment: Speci men Type: BLOOD SPECIMENOrdering Facility: [facility] Address: [address] [place] [address] Performed By: #### A LKISOP ####[facility] [id number] [place] [address] [place] INTESTINE FRACTION 30.1 U/L High 0.0-16.3 [facility] Comment on above: Order Comment: Speci men Type: BLOOD SPECIMENOrdering Facility: [facility] Address: [address] [place] [address] Performed By: #### A LKISOP ####[facility] [id number] [address] [place] LIVER FRACTION 86.4 U/L High 16.0-69.3 [facility] Comment on above: Order Comment: Speci men Type: BLOOD SPECIMENOrdering Facility: [facility] Address: [address] [place] [address] Performed By: #### A LKISOP ####[facility] [id number] [place] [id number] [place] Neutrophils/100 WBC (Bld) 17.8 % Normal 0.0-24.2 [facility] Comment on above: Order Comment: Speci men Type: BLOOD SPECIMENOrdering Facility: [facility] Address: [address] [place] [address] Performed By: #### A LKISOP ####[facility] [id number] [place] [id number] [place] ALP SerPl-cCncon 12-20-2024 ALP [Catalytic activity/Vol] 169 U/L High 38-113 [facility] Comment on above: Order Comment: Speci men Type: BLOOD SPECIMEN [facility] Address: [address] [place] [address] Performed By: #### 6 768-6, 2132-06, #### [facility] CLIA [id number] [address] [place] [address] [place] CBC W Auto Differential pane l (Bld)on 12-20-2024 Basophils (Bld) [#/Vol] 0.06 10*3/uL Normal <0.11 [facility] Comment on above: Order Comment: Speci men Type: BLOOD SPECIMEN [facility] Address: [address] [place] [address] Performed By: #### 6 768-6, 2132-06, #### [facility] CLIA [id number] [address] [place] [address] [place] Basophils/100 WBC (Bld) 0.8 % Normal [facility] Comment on above: Order Comment: Speci men Type: BLOOD SPECIMEN [facility] Address: [address] [place] [address] Performed By: #### 6 768-6, 2132-06, #### [facility] CLIA [id number] [address] [place] [address] [place] Differential cell count method Nom (Bld) Auto Normal [facility] Comment on above: Order Comment: Speci men Type: BLOOD SPECIMEN [facility] Address: [address] [place] [address] Performed By: #### 6 768-6, 2132-06, #### [facility] CLIA [id number] [address] [place] [address] [place] Eosinophils (Bld) [#/Vol] 0.20 10*3/uL Normal <0.46 [facility] Comment on above: Order Comment: Speci men Type: BLOOD SPECIMEN [facility] Address: [address] [place] [address] Performed By: #### 6 768-6, 2132-06, #### [facility] CLIA [id number] [address] [place] [address] [place] Eosinophils/100 WBC (Bld) 2.5 % Normal [facility] Comment on above: Order Comment: Speci men Type: BLOOD SPECIMEN [facility] Address: [address] [place] [address] Performed By: #### 6 768-6, 2132-06, #### [facility] CLIA [id number] [address] [place] [address] [place] Erythrocyte distribution width (RBC) [Ratio] 12.2 % Normal 11.5-15.0 [facility] Comment on above: Order Comment: Speci men Type: BLOOD SPECIMEN [facility] Address: [address] [place] [address] Performed By: #### 6 768-6, 2132-06, #### [facility] CLIA [id number] [address] [place] [address] [place] Hematocrit (Bld) [Volume fraction] 37.3 % Low 39.0-51.0 [facility] Comment on above: Order Comment: Speci men Type: BLOOD SPECIMEN [facility] Address: [address] [place] [address] Performed By: #### 6 768-6, 2132-06, #### [facility] CLIA [id number] [address] [place] [address] [place] Hemoglobin (Bld) [Mass/Vol] 12.3 g/dL Low 13.0-17.0 [facility] Comment on above: Order Comment: Speci men Type: BLOOD SPECIMEN [facility] Address: [address] [place] [address] Performed By: #### 6 768-6, 2132-06, #### [facility] CLIA [id number] [address] [place] [address] [place] Immature granulocytes (Bld) [#/Vol] 0.03 10*3/uL Normal <0.10 [facility] Comment on above: Order Comment: Speci men Type: BLOOD SPECIMEN [facility] Address: [address] [place] [address] Performed By: #### 6 768-6, 2132-06, #### [facility] CLIA [id number] [address] [place] [address] [place] Immature granulocytes/100 WBC (Bld) 0.4 % Normal [facility] Comment on above: Order Comment: Speci men Type: BLOOD SPECIMEN [facility] Address: [address] [place] [address] Performed By: #### 6 768-6, 2132-06, #### [facility] CLIA [id number] [address] [place] [address] [place] Lymphocytes (Bld) [#/Vol] 2.65 10*3/uL Normal 1.00-4.00 [facility] Comment on above: Order Comment: Speci men Type: BLOOD SPECIMEN [facility] Address: [address] [place] [address] Performed By: #### 6 768-6, 2132-06, #### [facility] CLIA [id number] [address] [place] [address] [place] Lymphocytes/100 WBC (Bld) 33.2 % Normal [facility] Comment on above: Order Comment: Speci men Type: BLOOD SPECIMEN [facility] Address: [address] [place] [address] Performed By: #### 6 768-6, 2132-06, #### [facility] CLIA [id number] [address] [place] [address] [place] MCH (RBC) [Entitic mass] 28.0 pg Normal 26.0-34.0 [facility] Comment on above: Order Comment: Speci men Type: BLOOD SPECIMEN [facility] Address: [address] [place] [address] Performed By: #### 6 768-6, 2132-06, #### [facility] CLIA [id number] [address] [place] [address] [place] MCHC (RBC) [Mass/Vol] 33.0 g/dL Normal 30.5-36.[address] [facility] Comment on above: Order Comment: Speci men Type: BLOOD SPECIMEN [facility] Address: [address] [place] [address] Performed By: #### 6 768-6, 2132-06, #### [facility] CLIA [id number] [address] [place] [address] [place] MCV (RBC) [Entitic vol] 84.8 fL Normal 80.0-100.0 [facility] Comment on above: Order Comment: Speci men Type: BLOOD SPECIMEN [facility] Address: [address] [place] [address] Performed By: #### 6 768-6, 2132-06, #### [facility] CLIA [id number] [address] [place] [address] [place] Monocytes (Bld) [#/Vol] 0.48 10*3/uL Normal <0.87 [facility] Comment on above: Order Comment: Speci men Type: BLOOD SPECIMEN [facility] Address: [address] [place] [address] Performed By: #### 6 768-6, 2132-06, #### [facility] CLIA [id number] [address] [place] [address] [place] Monocytes/100 WBC (Bld) 6.0 % Normal [facility] Comment on above: Order Comment: Speci men Type: BLOOD SPECIMEN [facility] Address: [address] [place] [address] Performed By: #### 6 768-6, 2132-06, #### [facility] CLIA [id number] [address] [place] [address] [place] Neutrophils (Bld) [#/Vol] 4.55 10*3/uL Normal 1.45-7.50 [facility] Comment on above: Order Comment: Speci men Type: BLOOD SPECIMEN [facility] Address: [address] [place] [address] Performed By: #### 6 768-6, 2132-06, #### [facility] CLIA [id number] [address] [place] [address] [place] Neutrophils/100 WBC (Bld) 57.1 % Normal [facility] Comment on above: Order Comment: Speci men Type: BLOOD SPECIMEN [facility] Facility[facility] Address: [address] [place] [address] Performed By: #### 6 768-6, 2132-06, #### [facility] CLIA [id number] [address] [place] [address] [place] Nucleated RBC (Bld) [#/Vol] 10*3/uL Normal <0.01 [facility] Comment on above: Order Comment: Speci men Type: BLOOD SPECIMEN Ordering Facility: [facility] Address: [address] [place] [address] Performed By: #### 6 768-6, 2132-06, 94842-9 #### [facility] CLIA [id number] [address] [place], [place] [address] [place] Nucleated RBC/100 WBC (Bld) [Ratio] 0.0 /100 WBC Normal [facility] Comment on above: Order Comment: Speci men Type: BLOOD SPECIMEN Ordering Facility: [facility] Address: [address] [place] [address] Performed By: #### 6 768-6, 2132-06, 47165-3 #### [facility] CLIA [id number] [address] [place] [address] [place] Platelet mean volume (Bld) [Entitic vol] 12.5 fL Normal 9.0-12.7 [facility] Comment on above: Order Comment: Speci men Type: BLOOD SPECIMEN Ordering Facility: [facility] Address: [address] [place] [address] Performed By: #### 6 768-6, 2132-06, #### [facility] CLIA [id number] [address] [place] [address] [place] Platelets (Bld) [#/Vol] 352 10*3/uL Normal 150-400 [facility] Comment on above: Order Comment: Speci men Type: BLOOD SPECIMEN Ordering Facility: [facility] Address: [address] [place] [address] Performed By: #### 6 768-6, 2132-06, 72372-5 #### [facility] CLIA [id number] [address] [place] [address] [place] RBC (Bld) [#/Vol] 4.40 10*6/uL Normal 4.20-6.00 [facility] Comment on above: Order Comment: Speci men Type: BLOOD SPECIMEN Ordering Facility: [facility] Address: [address] [place] [address] Performed By: #### 6 768-6, 2131-9, 94946-7 #### [facility] CLIA [id number] [address] [place] [address] [place] WBC (Bld) [#/Vol] 7.97 10*3/uL Normal 3.70-11.00 [facility] Comment on above: Order Comment: Speci men Type: BLOOD SPECIMEN [facility]ing [facility]: [facility] Address: [address] [place] [address] Performed By: #### 6 768-6, 2131-9, 08195-8 #### [facility] CLIA [id number] [address] [place] [address] [place] CNOVon 12-20-2024 CNOV Office Visit (FAMWS ) -- BIANCA DELAROSA ([id number]) 1975 M Date Time Provider Department 12/20/24 9:40 [facility] During your visit today, we recorded [...] Acute hypoxemic respiratory failure due to COVID-19 ([facility]) 09/24/2023 Agitation 03/31/2014 Allergic rhinitis 03/31/2014 Allergy-induced asthma 03/31/2014 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 Lazaro 03/2018 Multiple thyroid nodules 02/27/2018 US 03/2020 per radiology no further f/u needed.. All benign Biopsy 03/[address] Lazaro. Benign. Obesity, Class II, BMI 35-39.9 10/21/2022 Obstructive sleep apnea syndrome 01/27/2017 On CPAP Other joint derangement, not elsewhere classified, lower leg 03/25/2013 Primary insomnia 07/28/2020 QT prolongation 04/20/2021 Seen [facility] 04/19/2021: [place]argo to be benign and related to anti-depressants. No changes needed. TMJ (temporomandibular joint disorder) 03/31/2014 Right side Type 2 diabetes mellitus without complication, without long-term current use of insulin ([facility]) 01/19/2017 Well adult exam 12/17/2014 Last [...] LA (RITAL (more content not included)... Normal [facility] Santos 12-20-2024 CHRISTOPHERN Telephone ([facility]) -- BIANCA DELAROSA ([id number]) 1975 M Date Time Provider Department 12/20/24 [...] for a 90 day supply. - Insulin Potwin, Disposable, (DROPLET PEN NEEDLE) 31 gauge x [...] *09/26/2018 GERD without esophagitis [K21.9] 09/26/2018 Lump [[id number]] 11/16/2019 ISABELLA (generalized anxiety disorder) [F41.1] 06/22/2020 [...] Status:Closed by AZALEA PENALOZA on 12/20/24 Normal [facility] Comprehensive metabolic 2000 panelon 12-20-2024 Albumin [Mass/Vol] 4.5 g/dL Normal 3.9-4.9 [facility] Comment on above: Order Comment: Speci men Type: BLOOD SPECIMEN Ordering Facility: [facility] Address: [address] [place] [address] Performed By: #### 6 768-6, 2132-06, #### [facility] CLIA [id number] [address] [place] [address] [place] ALT [Catalytic activity/Vol] 12 U/L Normal 10-54 [facility] Comment on above: Order Comment: Speci men Type: BLOOD SPECIMEN Ordering Facility: [facility] Address: [address] [place] [address] Performed By: #### 6 768-6, 2132-06, #### [facility] CLIA [id number] [address] [place], [place] [address] [place] Anion gap [Moles/Vol] 12 mmol/L Normal 8-[address] [facility] Comment on above: Order Comment: Speci men Type: BLOOD SPECIMEN Ordering Facility: [facility] Address: [address] [place] [address] Performed By: #### 6 768-6, 2132-06, #### [facility] CLIA [id number] [address] [place], [place] [address] [place] AST [Catalytic activity/Vol] 18 U/L Normal 14-40 [facility] Comment on above: Order Comment: Speci men Type: BLOOD SPECIMEN Ordering Facility: [facility] Address: [address] [place] [address] Performed By: #### 6 768-6, 2132-06, #### [facility] CLIA [id number] [address] [place], [place] [address] [place] Bilirubin [Mass/Vol] 0.2 mg/dL Normal 0.2-1.3 [facility] Comment on above: Order Comment: Speci men Type: BLOOD SPECIMEN Ordering Facility: [facility] Address: [address] [place] [address] Performed By: #### 6 768-6, 2132-06, #### [facility] CLIA [id number] [address] [place], [place] [address] [place] Calcium [Mass/Vol] 9.4 mg/dL Normal 8.5-10.2 [facility] Comment on above: Order Comment: Speci men Type: BLOOD SPECIMEN Ordering Facility: [facility] Address: [address] [place], [place] [address] Performed By: #### 6 768-6, 2132-06, #### [facility] CLIA [id number] [address] [place] [address] [place] Chloride [Moles/Vol] 103 mmol/L Normal 98-107 [facility] Comment on above: Order Comment: Speci men Type: BLOOD SPECIMEN Ordering Facility: [facility] Address: [address] [place] [address] Performed By: #### 6 768-6, 2132-06, #### [facility] CLIA [id number] [address] [place] [address] [place] CO2 [Moles/Vol] 23 mmol/L Normal 22-30 [facility] Comment on above: Order Comment: Speci men Type: BLOOD SPECIMEN Ordering Facility: [facility] Address: [address] [place] [address] Performed By: #### 6 768-6, 2132-06, 45311-7 #### [facility] CLIA [id number] [address] [place] [address] [place] Creatinine [Mass/Vol] 0.68 mg/dL Low 0.73-1.[address] [facility] Comment on above: Order Comment: Speci men Type: BLOOD SPECIMEN Ordering [facility] Address: [address] [place] [address] Performed By: #### 6 768-6, 2132-06, 30981-6 #### [facility] CLIA [id number] [address] [place] [address] [place] Creatinine and Glomerular filtration rate.predicted panel (S/P/Bld) 113 mL/min/1.73m??? Normal >=60 [facility] Comment on above: Order Comment: Speci men Type: BLOOD SPECIMEN Ordering Facility: [facility] Address: [address] [place] [address] Result Comment: Tia mated Glomerular Filtration Rate [...] Performed By: #### 6 768-6, 2132-06, #### [facility] CLIA [id number] [address] [address] [place] Glucose [Mass/Vol] 322 mg/dL High 74-99 [facility] Comment on above: Order Comment: Catherine hendrix Type: BLOOD SPECIMEN Ordering Facility: [facility] Address: [address] [place] [address] Result Comment: The [place] Diabetes Association (ADA) provides guidance for cutoff [...] Standards of Medical Care in Diabetes 2016, [place] Diabetes Association. Diabetes Care. 2016.39(Suppl 1). Performed By: #### 6 768-6, 2132-06, #### [facility] CLIA [id number] [facility] [address] [address] [place] Potassium [Moles/Vol] 4.5 mmol/L Normal 3.7-5.[address] [facility] Comment on above: Order Comment: Catherine hendrix Type: BLOOD SPECIMEN Ordering Facility: [facility] Address: [address] [place] [address] Performed By: #### 6 768-6, 2132-06, #### [facility] CLIA [id number] [address] [address] [place] Protein [Mass/Vol] 6.5 g/dL Normal 6.3-8.0 [facility] Comment on above: Order Comment: Speci men Type: BLOOD SPECIMEN Ordering Facility: [facility] Address: [address] [place] [address] Performed By: #### 6 768-6, 2132-06, #### [facility] CLIA [id number] [address] [place] [address] [place] Sodium [Moles/Vol] 138 mmol/L Normal 136-144 [facility] Comment on above: Order Comment: Speci men Type: BLOOD SPECIMEN Ordering Facility: [facility] Address: [address] [place] [address] Performed By: #### 6 768-6, 2132-06, #### [facility] CLIA [id number] [address] [place] [address] [place] Urea nitrogen [Mass/Vol] 12 mg/dL Normal 9-24 [facility] Comment on above: Order Comment: Speci men Type: BLOOD SPECIMEN Ordering Facility: [facility] Address: [address] [place] [address] Performed By: #### 6 768-6, 2132-06, #### [facility] CLIA [id number] [address] [place] [address] [place] GGT SerPl-cCncon 12-20-2024 Gamma glutamyl transferase [Catalytic activity/Vol] 36 U/L Normal 10-70 [facility] Comment on above: Order Comment: Speci men Type: BLOOD SPECIMEN Ordering Facility: [facility] Address: [address] [place] [address] Performed By: #### 6 768-6, 2132-06, #### [facility] CLIA [id number] [address] [place], [place] [address] [place] HbA1c (Bld)on 12-20-2024 Average glucose Estimated from glycated hemoglobin (Bld) [Mass/Vol] 255 mg/dL Normal [facility] Comment on above: Order Comment: Catherine hendrix Type: BLOOD SPECIMEN Ordering Facility: [facility] Address: [address] [place] [address] Result Comment: eAG: (Estimated average glucose) is a calculated value from HgbA1c and is labor service representative of the average blood glucose level in the last 2-3 month period. Performed By: #### 6 768-6, 2132-06, #### [facility] CLIA [id number] [address] [place] [address] [place] HbA1c (Bld) [Mass fraction] 10.5 % High 4.3-5.6 [facility] Comment on above: Order Comment: Catherine hendrix Type: BLOOD SPECIMEN Ordering Facility: [facility] Address: [address] [place] [address] Result Comment: Amer ican Diabetes Association guidelines indicate that patients with HgbA1c in the range 5.7-6.4% are at increased risk for development of diabetes, and intervention by lifestyle modification may be beneficial. HgbA1c greater or equal to 6.5% is considered diagnostic of diabetes. Performed By: #### 6 768-6, 2132-06, #### [facility] CLIA [id number] [address] [place] [address] [place] LIPID PANEL, NONFASTINGon Cholesterol [Mass/Vol] 147 mg/dL Normal <200 [facility] Comment on above: Order Comment: Catherine hendrix Type: BLOOD SPECIMEN Order[facility] Facility: [facility] Address: [address] [place] [address] Result Comment: <200 mg/dL, Desirable 200-239 mg/dL, Borderline high >239 mg/dL, High Performed By: #### 6 768-6, 2132-06, #### [facility] CLIA [id number] [address] [place] [address] [place] HDL CHOLESTEROL, NF 25 mg/dL Low >39 [facility] Comment on above: Order Comment: Catherine simeon Type: BLOOD SPECIMEN Order[facility] Facility: [facility] Address: [address] [place] [address] Result Comment: 40-5 9 mg/dL, Acceptable >59 mg/dL, High: Negative risk factor for coronary heart disease <40 mg/dL, Low: Positive risk factor for coronary heart disease Performed By: #### 6 768-6, 2132-06, #### [facility] CLIA [id number] [address] [place] [address] OF [facility] LDL CHOLESTEROL, NF 54 mg/dL Normal <100 [facility] Comment on above: Order Comment: Catherine simeon Type: BLOOD SPECIMEN Order[facility] Address: [address] [place] [address] Result Comment: <100 mg/dL, Optimal 100-129 mg/dL, Near optimal/above optimal 130-159 mg/dL, Borderline high 160-189 mg/dL, High >189 mg/dL, Very high Secondary prevention optimal LDL Cholesterol levels are recommended to be < 70 mg/dL Performed By: #### 6 768-6, 2132-06, #### [facility] CLIA [id number] [address] [place] [address] OF [facility] LDL/HDL RATIO, NF 2.16 mg/dL Normal <2.54 [facility] Comment on above: Order Comment: Laytonrobin hendrix Type: BLOOD SPECIMEN Order[facility] Address: [address] [place] [address] Result Comment: Refe rence: 1. National Cholesterol Education Program ATP III Guideline At-A-Glance Quick Desk Reference: National Heart, Lung, and Blood [place]. National Institutes of Health. 2001: NIH Publication No. 01-3305. 2. An International Atherosclerosis Society position paper: global recommendations for the management of dyslipidemia: executive summary, Atherosclerosis. 2014: 232(2):410-413. Performed By: #### 6 768-6, 2132-06, #### [facility] CLIA [id number] [facility] [place] [id number] [place] NON HDL CHOL, NF 122 mg/dL Normal <130 [facility] Comment on above: Order Comment: Catherine men Type: BLOOD SPECIMEN Order[facility] Facility: [facility] Address: [address] [place], [place] [address] Result Comment: <130 mg/dL, Optimal 130-159 mg/dL, Near optimal/above optimal 160-189 mg/dL, Borderline high 190-219 mg/dL, High >219 mg/dL, Very high Secondary prevention optimal non HDL Cholesterol levels are recommended to be <100 mg/dL Performed By: #### 6 768-6, 2132-06, #### [facility] CLIA [id number] [address] [place] [address] [place] T CHOL/HDL RATIO NF 5.88 mg/dL High <5.10 [facility] Comment on above: Order Comment: Laytoni men Type: BLOOD SPECIMEN Order[facility] Address: [address] [place] [address] Performed By: #### 6 768-6, 2132-06, #### [facility] CLIA [id number] [address] [place] [address] [place] TRIGLYCERIDES, NF 338 mg/dL High <150 [facility] Comment on above: Order Comment: Speci men Type: BLOOD SPECIMEN [facility] Address: [address] [place], [place] [address] Result Comment: <150 mg/dL, Normal 150-199 mg/dL, Borderline high 200-499 mg/dL, High >499 mg/dL, Very high Performed By: #### 6 768-6, 2132-06, #### [facility] CLIA [id number] [address] [place], [place] [address] [place] VLDL CHOLESTEROL, NF 68 mg/dL High <30 [facility] Comment on above: Order Comment: Speci men Type: BLOOD SPECIMEN [facility] Address: [address] [place] [address] Performed By: #### 6 768-6, 2132-06, #### [facility] CLIA [id number] [address] [place] [address] [place] Magnesium SerPl-mCncon 12-20 Magnesium [Mass/Vol] 2.1 mg/dL Normal 1.7-2.3 [facility] Comment on above: Order Comment: Speci men Type: BLOOD SPECIMEN [facility] Address: [address] [place] [address] Performed By: #### 6 768-6, 2132-06, #### [facility] CLIA [id number] [address] [place] [address] [place] Mitochondria Ab IF Ql (S)on 12-20-2024 Mitochondria M2 Ab IA Qn (S) 2.7 Units Normal <=20.0 [facility] Comment on above: Order Comment: Speci men Type: BLOOD SPECIMEN [facility] Address: [address] [place] [address] Performed By: #### 6 768-6, 2132-06, #### [facility] CLIA [id number] [address] [place] [address] [place] Mitochondria M2 Ab Ql (S) Negative Normal Negative [facility] Comment on above: Order Comment: Speci men Type: BLOOD SPECIMEN [facility] Address: [address] [place] [address] Result Comment: Anti -mitochondrial antibody test is used as an aid in diagnosis of primary biliary cholangitis. Clinical correlation is required. Performed By: #### 6 768-6, 2132-06, #### [facility] CLIA [id number] [address] [place] [address] [place] TSH SerPl-aCncon 12-20-2024 TSH Qn 1.230 m[IU]/L Normal 0.270-4.200 [facility] Comment on above: Order Comment: Speci men Type: BLOOD SPECIMEN [facility] Address: [address] [place] [address] Performed By: #### 6 768-6, 2132-9, 10403-0 #### [facility] CLIA [id number] [address] [place] [address] [place] Urinalysis complete panel (U )on 12-20-2024 Bacteria LM.HPF (Urine sed) [#/Area] Negative Normal Negative [facility] Comment on above: Order Comment: Speci men Type: URINE SPECIMENOrdering Facility: [facility] Address: [address] [place] [address] Performed By: #### 2 4356-8 ####[facility] [id number] [place] [address] [place] Bilirubin Ql (U) Negative Normal Negative [facility] Comment on above: Order Comment: Speci men Type: URINE SPECIMENOrdering Facility: [facility] Address: [address] [place] [address] Performed By: #### 2 4356-8 ####[facility] [id number] [place] [address] [place] Clarity (Unsp spec) Clear Normal Clear [facility] Comment on above: Order Comment: Speci men Type: URINE SPECIMENOrdering Facility: [facility] Address: [address] [place] [address] Performed By: #### 2 4356-8 ####[facility] [id number] [place] [address] [place] Color (U) Yellow Normal Yellow [facility] Comment on above: Order Comment: Speci men Type: URINE SPECIMENOrdering Facility: [facility] Address: [address] [place] [address] Performed By: #### 2 4356-8 ####[facility] [id number] [address] Epithelial cells LM.HPF (Urine sed) [#/Area] None Seen Normal [facility] Comment on above: Order Comment: Speci men Type: URINE SPECIMENOrdering Facility: [facility] Address: [address] [place] [address] Performed By: #### 2 4356-8 ####[facility] [id number] [address] Glucose Test strip (U) [Mass/Vol] 3+ Abnormal Negative [facility] Comment on above: Order Comment: Speci men Type: URINE SPECIMENOrdering Facility: [facility] Address: [address] [place] [address] Performed By: #### 2 4356-8 ####[facility] [id number] [place] [address] [place] Hemoglobin Ql (U) Negative Normal Negative [facility] Comment on above: Order Comment: Speci men Type: URINE SPECIMENOrdering Facility: [facility] Address: [address] [place] [address] Performed By: #### 2 4356-8 ####[facility] [id number] [address] [place] Hyaline casts (Urine sed) [#/Area] 0 /[LPF] Normal 0 /LPF [facility] Comment on above: Order Comment: Speci men Type: URINE SPECIMENOrdering Facility: [facility] Address: [address] [place] [address] Performed By: #### 2 4356-8 ####[facility] [id number] [address] [place] Ketones Ql (U) Trace Abnormal Negative [facility] Comment on above: Order Comment: Speci men Type: URINE SPECIMENOrdering Facility: [facility] Address: [address] [place] [address] Performed By: #### 2 4356-8 ####[facility] [id number] [address] [place] [address] [place] Leukocyte esterase Test strip Ql (U) Negative Normal Negative [facility] Comment on above: Order Comment: Speci men Type: URINE SPECIMENOrdering Facility: [facility] Address: [address] [place] [address] Performed By: #### 2 4356-8 ####[facility] [id number] [address], [facility] [place] Nitrite Ql (U) Negative Normal Negative [facility] Comment on above: Order Comment: Speci men Type: URINE SPECIMENOrdering Facility: [facility] Address: [address] [place] [address] Performed By: #### 2 4356-8 ####[facility] [id number] [address], [facility] [place] pH (U) 7.0 [pH] Normal <8.5 [facility] Comment on above: Order Comment: Speci men Type: URINE SPECIMENOrdering Facility: [facility] Address: [address] [place] [address] Performed By: #### 2 4356-8 ####[facility] [id number] [address] [place] [address] [place] Protein (U) [Mass/Vol] Trace Abnormal Negative [facility] Comment on above: Order Comment: Speci men Type: URINE SPECIMENOrdering Facility: [facility] Address: [address] [place] [address] Performed By: #### 2 4356-8 ####[facility] [id number] [address] [place] RBC LM.HPF (Urine sed) [#/Area] 0-2 /HPF Normal 0-2 /HPF [facility] Comment on above: Order Comment: Speci men Type: URINE SPECIMENOrdering Facility: [facility] Address: [address] [place] [address] Performed By: #### 2 4356-8 ####[facility] [id number] [place] [address] [place] Specific gravity (U) [Rel density] >1.045 High 1.005-1.030 [facility] Comment on above: Order Comment: Speci men Type: URINE SPECIMENOrdering Facility: [facility] Address: [address] [place] [address] Performed By: #### 2 4356-8 ####[facility] [id number] [place] [address] [place] Urobilinogen Ql (U) 0.2 EU/dL Normal 0.2-1.0 EU/dL [facility] Comment on above: Order Comment: Speci men Type: URINE SPECIMENOrdering Facility: [facility] Address: [address] [place] [address] Performed By: #### 2 4356-8 ####[facility] [id number] [place] [address] [place] WBC LM.HPF (Urine sed) [#/Area] 0-5 /HPF Normal 0-5 /HPF [facility] Comment on above: Order Comment: Speci men Type: URINE SPECIMENOrdering Facility: [facility] Address: [address] [place] [address] Performed By: #### 2 4356-8 ####[facility] [id number] [place] [address] [place] Vit B12 [facility]25 Cobalamin (Vitamin B12) [Mass/Vol] 438 pg/mL Normal 232-1245 [facility] Comment on above: Order Comment: Speci men Type: BLOOD SPECIMEN [facility] Address: [address] [place] [address] Performed By: #### 6 768-6, 2132-9, 32344-6 #### [facility] CLIA [id number] [address] [place] [address] [place] CNPNon 2024 CNPN Telephone (NEMN) -- BIANCA DELAROSA ([id number]) 1975 M Date Time Provider Department 12/13/24 KARTHIK NOLAN [facility] During your visit today, we recorded the following information about you: Laurie Gonzales LPN 2024 2:31 PM [facility] NEW PATIENT REFERRAL TRIAGE Referral [...] for a 90 day supply. - Insulin Potwin, Disposable, (DROPLET PEN NEEDLE) 31 gauge x [...] *09/26/2018 GERD without esophagitis [K21.9] 09/26/2018 Lump [YYV8621] 11/16/2019 ISABELLA (generalized anxiety disorder) [F41.1] 06/22/2020 [...] Status:Closed by LAURIE GONZALES on 12/17/24 Normal [facility] CNPN Telephone (NSCAMN) -- BIANCA DELAROSA ([id number]) 1975 M Date Time Provider Department 12/12/24 SELF NSCAMN During your visit today, we recorded the following information about you: Bland, Radha 12/12/2024 9:26 AM Signed Request Summary [[id number]] Procedure: CONSULT TO NEUROSURGERY Status: Needs Scheduling Requested appt date: Authorizing: Humberto Jackson MD in [facility] Referral: [id number] (Authorized) Expires: 12/11/2025 Priority: Routine Diagnosis: Gynecomastia, male [N62] Elevated prolactin level [R79.89] Abnormal finding on MRI of brain [R90.89] Order Specific Questions Does consulting provider have [facility] Epic access? [facility] Corazon Reed APRN.MECHANICAL MANUFACTURING TECHNICIAN 12/12/2024 9:50 AM Signed Time Frame: Next available If unable to obtain an appointment within requested time frame, please contact appropriate home care specialist for scheduling access Provider: Miles Raymond Referring: Humberto Jackson MD Please instruct patient to hand carry/ upload images prior to appt Dx: pituitary adenoma Patient: Bianca Delarosa Address: Bianca Delarosa [id number] [place] [address] Per Triage: Bianca Delarosa is a 48 year old male that requests evaluation of previously diagnosed pituitary adenoma during work up for gynecomastia. Patient expectations: New Consult Tumor Specifics: Location: pituitary Previous Evaluations: MRI w/wo contrast * * *Final Report* * * DATE OF EXAM: Dec 11 2024 10:59AM [facility] 0295 - MRI BRAIN WO/W [...] reflect an underlying lesion/adenoma or pituitary hyperplasia. Utility Mechanic: [facility] Transcribe Date/Time: Dec 11 2024 11:13A Dictated [...] mg capsule (more content not included)... Normal [facility] MR Brain WO and W contrast I [...] reflect an underlying lesion/adenoma or pituitary hyperplasia. Utility Mechanic[facility] Transcribe Date/Time: Dec 11 2024 11:13A Dictated by : DAVID FAY MD This examination was interpreted and the report reviewed and electronically signed by: DAVID FAY MD on Dec 11 2024 11:19AM EST DIVISION OF RADIOLOGY Provider, [facility] - 12/11/2024 * * *Final Report* * * DATE OF EXAM: Dec 11 2024 10:59AM [facility] 0295 - MRI BRAIN WO/W [...] reflect an underlying lesion/adenoma or pituitary hyperplasia. Utility Mechanic: [facility] Transcribe Date/Time: Dec 11 2024 11:13A Dictated by : DAVID FAY MD This examination was interpreted and the report reviewed and electronically signed by: DAVID FAY MD on Dec 11 2024 11:19AM EST [facility] Radiology Study observation (narrative) [facility] MR Brain WO and W contrast I VOrdered By: [facility] Provider on 12-11-2024 [facility] MRI BRAIN WO/W IVCONon 12-11 MRI BRAIN WO/W IVCON * * *Final Report* * * DATE OF EXAM: Dec 11 2024 10:59AM [facility] 0295 - MRI BRAIN WO/W [...] reflect an underlying lesion/adenoma or pituitary hyperplasia. Utility Mechanic: [facility] Transcribe Date/Time: Dec 11 2024 11:13A Dictated by : DAVID FAY MD This examination was interpreted and the report reviewed and electronically signed by: DAVID FAY MD on Dec 11 2024 11:19AM EST [id number] Normal [facility] DBT Breast - bilateral diagn ostic for implanton 12-03-2024 Addendum by Provider , [facility] [place] on 12/03/2024 9:46 AM EST * * *Final Report* * * * * * SEE BOTTOM OF REPORT FOR ADDENDED TEXT * * * DATE OF EXAM: Dec 03 2024 8:41AM [facility] 0627 - [facility] DIAG W GEOVANNI DYLON / PROCEDURE REASON: Subareolar mass of right breast * * * * Physician Interpretation * * * * RESULT: [facility] [address] [place] [address] #[id number] - [facility] DIAG W GEOVANNI DYLON #[id number] - [facility] BREAST LTD RT HISTORY: 48 year-old patient [...] Ray Alcocer M.D. Electronically signed on: 12/03/2024 Utility Mechanic: SAM Transcribe Date/Time: Dec 03 2024 8:13A Dictated by: RAY ALCOCER MD This examination was interpreted and the report reviewed and electronically signed by: RAY ALCOCER MD on Dec 03 2024 9:37AM EST This document has been addended by: RAY ALCOCER MD on Dec 03 2024 9:37AM EST [facility] Radiology Study observation (narrative) [facility] DBT Breast - bilateral diagn ostic for implantOrdered By: [facility] Provider on 12-03-2024 [facility] DIAG W GEOVANNI BILon 2024 [facility] DIAG W GEOVANNI DYLON * * *Final Report* * * * * * SEE BOTTOM OF REPORT FOR ADDENDED TEXT * * * DATE OF EXAM: Dec 03 2024 8:41AM [facility] 0627 - [facility] DIAG W GEOVANNI DYLON / PROCEDURE REASON: Subareolar mass of right breast * * * * Physician Interpretation * * * * RESULT: [facility] [address] [place] [address] #[id number] - [facility] DIAG W GEOVANNI DYLON #[id number] - [facility] US BREAST LTD RT HISTORY: [...] Ray Alcocer M.D. Electronically signed on: 12/03/2024 Utility Mechanic: SAM Transcribe Date/Time: Dec 03 2024 8:13A Dictated by: RAY ALCOCER MD This examination was interpreted and the report reviewed and electronically signed by: RAY ALCOCER MD on Dec 03 2024 9:37AM EST This document has been addended by: RAY ALCOCER MD on Dec 03 2024 9:37AM EST [id number] Normal [facility] US BREAST LTD RTon 12-03 [facility] [employer] BREAST LTD RT * * *Final Report* * * DATE OF EXAM: Dec 03 2024 9:11AM [facility] 0594 - [facility] US BREAST LTD RT / PROCEDURE REASON: Subareolar mass of right breast * * * * Physician Interpretation * * * * [facility] [place] [address] #[id number] - [facility] DIAG W GEOVANNI DYLON #[id number] - [facility] US BREAST LTD RT HISTORY: [...] Ray Alcocer M.D. Electronically signed on: 12/03/2024 Utility Mechanic: SAM Transcribe Date/Time: Dec 03 2024 9:03A Dictated by : RAY ALCOCER MD This examination was interpreted and the report reviewed and electronically signed by: RAY ALCOCER MD on Dec 03 2024 9:37AM EST [id number] Normal [facility] US Breast - right limitedon 12-03-2024 IMPRESSION: There is no mammographic or sonographic evidence of malignancy. BI-RADS Category 2: Benign Interpreting Radiologist: Ray Alcocer M.D. Electronically signed on: 12/03/2024 Utility Mechanic: SAM Transcribe Date/Time: Dec 03 2024 9:03A Dictated by : RAY ALCOCER MD This examination was interpreted and the report reviewed and electronically signed by: RAY ALCOCER MD on Dec 03 2024 9:37AM EST DIVISION OF RADIOLOGY * * *Final Report* * * DATE OF EXAM: Dec 03 2024 9:11AM U 0594 - [facility] [employer] BREAST [employer] RT / PROCEDURE REASON: Subareolar mass of right breast * * * * Physician Interpretation * * * * [place] [address] #[id number] - [facility] LESLY OSBORNE #[id number] - [facility] [employer] BREAST [employer] RT HISTORY: 48 year-old patient seen for [...] the imaged area. DIVISION OF RADIOLOGY Provider, [facility] - 12/03/2024 * * *Final Report* * * DATE OF EXAM: Dec 03 2024 9:11AM [facility] 0594 - [facility] [employer] BREAST [employer] RT / PROCEDURE REASON: Subareolar mass of right breast * * * * Physician Interpretation * * * * [place] [address] #[id number] - [facility] LESLY GALARZA DYLON #[id number] - [facility] [employer] BREAST [employer] RT HISTORY: 48 year-old patient seen for [...] Ray Alcocer M.D. Electronically signed on: 12/03/2024 Utility Mechanic: SAM Transcribe Date/Time: Dec 03 2024 9:03A Dictated by : RAY ALCOCER MD This examination was interpreted and the report reviewed and electronically signed by: RAY ALCOCER MD on Dec 03 2024 9:37AM EST [facility] Radiology Study observation (narrative) [facility] US Breast - right limitedOrd ered By: [facility] Provider on 12-03-2024 [facility] B-HCG SerPl-aCncon HCG.beta subunit Qn m[IU]/mL Normal <5.0 [facility] Comment on above: Order Comment: Speci men Type: BLOOD SPECIMEN [facility] Address: [facility] [place] [address] Performed By: #### 2 1198-7 #### [facility] CLIA [id number] [address] [facility] CNOVon 11-22-2024 CNOV Office Visit (FAMPWS ) -- BIANCA DELAROSA ([id number]) 1975 M Date Time Provider Department 11/22/24 8:20 AM [facility] During your visit today, we recorded the [...] disorder with single episode, in partial remission ([facility]) 09/26/2018 Migraine without aura and without status migrainosus, not intractable 09/11/2015 Mood disorder ([facility]) 03/31/2014 Multiple thyroid nodules 02/27/[address] Lazaro 03/2018 Multiple thyroid nodules 02/27/2018 US 03/2020 per radiology no further f/u needed.. All benign Biopsy 03/[address] Lazaro. Benign. Obesity, Class II, BMI 35-39.9 10/21/2022 Obstructive sleep apnea syndrome 01/27/2017 On CPAP Other joint derangement, not elsewhere classified, lower leg 03/25/2013 Primary insomnia 07/28/2020 QT prolongation 04/20/2021 [facility] 04/19/2021: Camargo to be benign and related to anti-depressants. No changes needed. TMJ (temporomandibular joint disorder) 03/31/2014 Right side Type 2 diabetes mellitus without complication, without long-term current use of insulin ([facility]) 01/19/2017 Well adult exam 12/17/2014 Last [...] mouth daily (more content not included)... Normal [facility] E2 [Mass/Vol] pg/mL Normal <43 [facility] Comment on above: Order Comment: Speci men Type: BLOOD SPECIMEN [facility] Address: [address] [place] [address] [place] [address] Performed By: #### 6 768-6, 2132-06, #### [facility] CLIA [id number] [address] [place] [address] [place] FSH SerPl-aCncon 11-22-2024 Follitropin Qn 7.2 m[IU]/mL Normal 1.5-12.4 [facility] Comment on above: Order Comment: Speci men Type: BLOOD SPECIMEN [facility] Address: [address] [place] [address] Performed By: #### 6 768-6, 2132-06, #### [facility] CLIA [id number] [address] [place] [address] [place] LH SerPl-aCncon 11-22-2024 Lutropin Qn 3.7 m[IU]/mL Normal 1.7-8.6 [facility] Comment on above: Order Comment: Speci men Type: BLOOD SPECIMEN [facility] Address: [address] [place] [address] Performed By: #### 6 768-6, 2132-06, #### [facility] CLIA [id number] [address] [place] [address] [place] Prolactin SerPl-mCncon 11-22 Prolactin [Mass/Vol] 41.2 ng/mL High 4.1-25.1 [facility] Comment on above: Order Comment: Speci men Type: BLOOD SPECIMEN [facility] Address: [address] [place] [address] Result Comment: Prol actin test is performed using the [employer] Electrochemiluminescence Immunoassay method. Results obtained with different methods or kits cannot be used interchangeably. Performed By: #### 6 768-6, 2132-06, #### [facility] CLIA [id number] [address] [place] [address] [place] T4 Free SerPl-mCncon 02-14-2 025 Free T4 [Mass/Vol] 1.1 ng/dL Normal 0.9-1.7 [facility] Comment on above: Order Comment: Speci men Type: BLOOD SPECIMEN [facility] Address: [address] [place] [address] Performed By: #### 3 016-3, 3024-7, 2986-8 #### [facility] CLIA [id number] [address] [place] [address] [place] TSH SerPl-aCncon 11-22-2024 TSH Qn 1.190 m[IU]/L Normal 0.270-4.200 [facility] Comment on above: Order Comment: Speci men Type: BLOOD SPECIMEN [facility] Address: [address] [place] [address] Performed By: #### 3 016-3, 3024-7, 298-8 #### [facility] CLIA [id number] [address] [place] [address] [place] Testost SerPl-mCncon 025 Testosterone [Mass/Vol] 166 ng/dL Low 193-824 [facility] Comment on above: Order Comment: Speci men Type: BLOOD SPECIMEN [facility] Address: [address] [place] [address] Result Comment: A te stosterone level in the 193-320 ng/dL range with associated clinical symptoms is considered low and may indicate hypogonadism (from NEJM 2010 363:123-135). Results >320 ng/dL are considered normal. Performed By: #### 3 016-3, 3024-7, 2986-8 #### [facility] CLIA [id number] [address] [place] [address] [place] US Abdomen RUQon 10-27-2024 IMPRESSION: Limited exam. Hepatic steatosis. Utility Mechanic: GORGE Transcribe Date/Time: Oct 26 2024 11:48P Dictated by : LOUISE BOURGEOIS, DO This examination was interpreted and the report reviewed and electronically signed by: LOUISE BOURGEOIS DO on Oct 27 2024 12:05AM [facility] DIVISION OF RADIOLOGY * * *Final [...] hydronephrosis. Ascites: None. DIVISION OF RADIOLOGY Provider, [facility] - 10/27/2024 * * *Final Report* * [...] None. IMPRESSION IMPRESSION: Limited exam. Hepatic steatosis. Utility Mechanic: GORGE Transcribe Date/Time: Oct 26 2024 11:48P Dictated by : LOUISE BOURGEOIS DO This examination was interpreted and the report reviewed and electronically signed by: LOUISE BOURGEOIS DO on Oct 27 2024 12:05AM EST [facility] US Abdomen RUQOrdered By: Leti vila Provider on 10-27-2024 [facility] US ABD RIGHT UPPER QUADRANTo n [...] Ascites: None. IMPRESSION: Limited exam. Hepatic steatosis. Utility Mechanic: GORGE Transcribe Date/Time: Oct 26 2024 11:48P Dictated by : LOUISE BOURGEOIS DO This examination was interpreted and the report reviewed and electronically signed by: LOUISE BOURGEOIS DO on Oct 27 2024 12:05AM EST [id number] Normal [facility] US Abdomen RUQon 10-25-2024 Radiology Study observation (narrative) [facility] CNPPolly 10-16-2024 [facility] BIANCA DELAROSA ([id number]) 1975 M [facility] Date Time Provider Department 10/16/24 HUMBERTO JACKSON [...] ALK PHOS ISOENZYM BL [SQALKISO] Order #: [id number] FUTURE MITOCHONDRIAL M2 IGG SERUM [SQMITOS] Order #: [id number] FUTURE US ABD RIGHT UPPER QUADRANT [[id number]] Order #: [id number] FUTURE GGT [SQGGT] Order #: [id number] FUTURE Prescriptions as of 10/28/2024 - sucralfate [...] for a 90 day supply. - Insulin Potwin, Disposable, (DROPLET PEN NEEDLE) 31 gauge x [...] level [R (more content not included)... Normal [facility] Amylase SerPl-cCncon 025 Amylase [Catalytic activity/Vol] 18 U/L Low 30-104 [facility] Comment on above: Order Comment: Speci men Type: BLOOD SPECIMEN [facility] Address: [address] [place] [address] Performed By: #### 6 768-6, 6042-9, 82044-5 #### [facility] CLIA [id number] [address] [place] [address] [place] CNOVon 10-14-2024 CNOV Office Visit (FAMPWS ) -- BIANCA DELAROSA ([id number]) 1975 M [facility] Date Time Provider Department 10/14/24 1:40 PM [...] Acute hypoxemic respiratory failure due to COVID-19 ([facility]) 09/24/2023 Agitation 03/31/2014 Allergic rhinitis 03/31/2014 [...] status migrainosus, not intractable 09/11/2015 Mood disorder ([facility]) 03/31/2014 Multiple thyroid nodules 02/27/[address] Lazaro 03/2018 Multiple thyroid nodules 02/27/2018 US 03/2020 per radiology no further f/u needed.. All benign Biopsy 03/2018 Dr. Lazaro. Benign. Obesity, Class II, BMI 35-39.9 10/21/2022 Obstructive sleep apnea syndrome 01/27/2017 On CPAP Other joint derangement, not elsewhere classified, lower leg 03/25/2013 Primary insomnia 07/28/2020 QT prolongation 04/20/2021 Seen [facility] 04/19/2021: Camargo to be benign and related to anti-depressants. No changes needed. TMJ (temporomandibular joint disorder) 03/31/2014 Right side Type 2 diabetes mellitus without complication, without long-term current use of insulin ([facility]) 01/19/2017 Well adult exam 12/17/2014 Last [...] 1 capsule (more content not included)... Normal [facility] H. pylori IgG IA Qlon 2024 H. PYLORI IGG, QUAL Negative Normal Negative [facility] Comment on above: Order Comment: Speci men Type: BLOOD SPECIMEN [facility] Address: [address] [place] [address] Result Comment: Megha ot exclude H. pylori infection if the specimen collected 3-4 weeks after onset of symptoms. Performed By: #### 6 768-6, 2132-06, #### [facility] CLIA [id number] [address] [place] [address] [place] HbA1c (Bld)on 10-14-2024 Average glucose Estimated from glycated hemoglobin (Bld) [Mass/Vol] 289 mg/dL Normal [facility] Comment on above: Order Comment: Speci men Type: BLOOD SPECIMEN [facility] Address: [address] [place] [address] Result Comment: eAG: (Estimated average glucose) is a calculated value from HgbA1c and is labor service representative of the average blood glucose level in the last 2-3 month period. Performed By: #### 6 768-6, 21319, #### [facility] CLIA [id number] [address] [place] [address] [place] HbA1c (Bld) [Mass fraction] 11.7 % High 4.3-5.6 [facility] Comment on above: Order Comment: Catherine hendrix Type: BLOOD SPECIMEN [facility] Address: [address] [place] [address] Result Comment: Luis [place] Diabetes Association guidelines indicate that patients with HgbA1c in the range 5.7-6.4% are at increased risk for development of diabetes, and intervention by lifestyle modification may be beneficial. HgbA1c greater or equal to 6.5% is considered diagnostic of diabetes. Performed By: #### 6 768-6, 2131-9, 50992-0 #### [facility] CLIA [id number] [address] [place] [address] [place] Hepatic function 2000 panelo n 10-14-2024 Albumin [Mass/Vol] 4.3 g/dL Normal 3.9-4.9 [facility] Comment on above: Order Comment: Catherine hendrix Type: BLOOD SPECIMEN [facility] Address: [address] [place] [address] Performed By: #### 6 768-6, 9, 91134-2 #### [facility] CLIA [id number] [address] [place] [address] [place] ALP [Catalytic activity/Vol] 182 U/L High 38-113 [facility] Comment on above: Order Comment: Catherine hendrix Type: BLOOD SPECIMEN [facility] Address: [address] [place] [address] Performed By: #### 6 768-6, 2131-9, 77888-2 #### [facility] CLIA [id number] [address] [place] [address] [place] ALT [Catalytic activity/Vol] 17 U/L Normal 10-54 [facility] Comment on above: Order Comment: Catherine hendrix Type: BLOOD SPECIMEN [facility] Address: [address] [place] [address] Performed By: #### 6 768-6, 2132-06, #### [facility] CLIA [id number] [address] [place] [address] [place] AST [Catalytic activity/Vol] 22 U/L Normal 14-40 [facility] Comment on above: Order Comment: Speci men Type: BLOOD SPECIMEN [facility] Address: [address] [place], [place] [address] Performed By: #### 6 768-6, 2132-06, #### [facility] CLIA [id number] [address] [place] [address] [place] Bilirubin [Mass/Vol] 0.2 mg/dL Normal 0.2-1.3 [facility] Comment on above: Order Comment: Speci men Type: BLOOD SPECIMEN [facility] Address: [address] [place] [address] Performed By: #### 6 768-6, 2132-06, #### [facility] CLIA [id number] [address] [place] [address] [place] Bilirubin.conjugated [Mass/Vol] mg/dL Normal <0.2 [facility] Comment on above: Order Comment: Speci men Type: BLOOD SPECIMEN [facility] Address: [address] [place] [address] Performed By: #### 6 768-6, 2132-06, #### [facility] CLIA [id number] [address] [place] [address] [place] Protein [Mass/Vol] 6.9 g/dL Normal 6.3-8.0 [facility] Comment on above: Order Comment: Speci men Type: BLOOD SPECIMEN [facility] Address: [address] [place] [address] Performed By: #### 6 768-6, 2132-06, #### [facility] CLIA [id number] [facility] [place] [address] [place] [facility] LIPID PANEL, NONFASTINGon Cholesterol [Mass/Vol] 117 mg/dL Normal <200 [facility] Comment on above: Order Comment: Laytoni men Type: BLOOD SPECIMEN [facility] Facility[facility] Address: [address] [place] [address] Result Comment: <200 mg/dL, Desirable 200-239 mg/dL, Borderline high >239 mg/dL, High Performed By: #### 6 768-6, 2132-06, #### [facility] CLIA [id number] [address] [place] [address] [place] HDL CHOLESTEROL, NF 22 mg/dL Low >39 [facility] Comment on above: Order Comment: Laytoni men Type: BLOOD SPECIMEN Ordering Facility: [facility] Address: [address] [place] [address] Result Comment: 40-5 9 mg/dL, Acceptable >59 mg/dL, High: Negative risk factor for coronary heart disease <40 mg/dL, Low: Positive risk factor for coronary heart disease Performed By: #### 6 768-6, 2132-06, #### [facility] CLIA [id number] [address] [place] [address] [place] LDL CHOLESTEROL, NF 20 mg/dL Normal <100 [facility] Comment on above: Order Comment: Speci men Type: BLOOD SPECIMEN [facility]ing Facility: [facility] Address: [address] [place] [address] Result Comment: <100 mg/dL, Optimal 100-129 mg/dL, Near optimal/above optimal 130-159 mg/dL, Borderline high 160-189 mg/dL, High >189 mg/dL, Very high Secondary prevention optimal LDL Cholesterol levels are recommended to be < 70 mg/dL Performed By: #### 6 768-6, 2132-06, #### [facility] CLIA [id number] [address] [place] [address] [place] LDL/HDL RATIO, NF 0.91 mg/dL Normal <2.54 [facility] Comment on above: Order Comment: Catherine hendrix Type: BLOOD SPECIMEN Ordering Facility: [facility] Address: [address] [place] [address] Result Comment: Refe rence: 1. National Cholesterol Education Program ATP III Guideline At-A-Glance Quick Desk Reference: National Heart, Lung, and Blood [place]. National Institutes of Health. 2001: NIH Publication No. 01-3305. 2. An International Atherosclerosis Society position paper: global recommendations for the management of dyslipidemia: executive summary, Atherosclerosis. 2014: 232(2):410-413. Performed By: #### 6 768-6, 2132-06, #### [facility] CLIA [id number] [address] [place] [address] [place] NON HDL CHOL, NF 95 mg/dL Normal <130 [facility] Comment on above: Order Comment: Catherine hendrix Type: BLOOD SPECIMEN [facility]ing Facility: [facility] Address: [address] [place] [address] Result Comment: <130 mg/dL, Optimal 130-159 mg/dL, Near optimal/above optimal 160-189 mg/dL, Borderline high 190-219 mg/dL, High >219 mg/dL, Very high Secondary prevention optimal non HDL Cholesterol levels are recommended to be <100 mg/dL Performed By: #### 6 768-6, 2132-06, #### [facility] CLIA [id number] [address] [place], [place] [address] [place] T CHOL/HDL RATIO NF 5.32 mg/dL High <5.10 [facility] Comment on above: Order Comment: Catherine hendrix Type: BLOOD SPECIMEN [facility]ing Facility: [facility] Address: [address] [place] [address] Performed By: #### 6 768-6, 2132-06, #### [facility] CLIA [id number] [address] [place] [address] [place] TRIGLYCERIDES, NF 377 mg/dL High <150 [facility] Comment on above: Order Comment: Speci men Type: BLOOD SPECIMEN [facility]ing Facility: [facility] Address: [address] [place] [address] Result Comment: <150 mg/dL, Normal 150-199 mg/dL, Borderline high 200-499 mg/dL, High >499 mg/dL, Very high Performed By: #### 6 768-6, 2132-06, 22003-7 #### [facility] CLIA [id number] [address] [place] [address] [place] VLDL CHOLESTEROL, NF 75 mg/dL High <30 [facility] Comment on above: Order Comment: Speci men Type: BLOOD SPECIMEN [facility]ing Facility: [facility] Address: [address] [place] [address] Performed By: #### 6 768-6, 2132-06, 69214-2 #### [facility] CLIA [id number] [address] [place] [address] [place] Lipase SerPl-cCncon 10-14-19 25 Lipase [Catalytic activity/Vol] 31 U/L Normal 16-61 [facility] Comment on above: Order Comment: Speci men Type: BLOOD SPECIMEN Ordering Facility: [facility] Address: [address] [place] [address] Performed By: #### 6 768-6, 2132-06, 42721-5 #### [facility] CLIA [id number] [address] [place] [address] [place] CNOVon 09-17-2024 CNOV Office Visit (FAMPWS ) -- BIANCA DELAROSA ([id number]) 1975 M [facility] Date Time Provider Department 09/17/24 9:20 AM [...] proton pump inhibitor 09/26/2018 Diabetic eye exam ([facility]) 01/27/2017 Last eye exam: 03/05/2019 Diverticulosis [...] disorder with single episode, in partial remission ([facility]) 09/26/2018 Migraine without aura and without status migrainosus, not intractable 09/11/2015 Mood disorder ([facility]) 03/31/2014 Multiple thyroid nodules 02/27/[address] Lazaro 03/2018 Multiple thyroid nodules 02/27/2018 US 03/2020 per radiology no further f/u needed.. All benign Biopsy 03/[address] Lazaro. Benign. Obesity, Class II, BMI 35-39.9 10/21/2022 Obstructive sleep apnea syndrome 01/27/2017 On CPAP Other joint derangement, not elsewhere classified, lower leg 03/25/2013 Primary insomnia 07/28/2020 QT prolongation 04/20/2021 Seen [facility] 04/19/2021: Camargo to be benign and related to anti-depressants. No changes needed. TMJ (temporomandibular joint disorder) 03/31/2014 Right side Type 2 diabetes mellitus without complication, without long-term current use of insulin ([facility]) 01/19/2017 Well adult exam 12/17/2014 Last [...] Topamax [Topir (more content not included)... Normal [facility] CNTHERAPYon 08-26-2024 CNTHERAPY OT/PT/Speech Visit ( PTWS) -- BIANCA DELAROSA ([id number]) 1975 M [facility] Date Time Provider Department 08/26/24 10:30 AM STORM PATEL PTWS Date Time Provider Department Center 08/26/2024 10:30 AM [id number], BRENT PTWS Irina Sharma Reason for Visit: [...] by mouth twice a day. - Insulin Potwin, Disposable, (DROPLET PEN NEEDLE) 31 gauge x [...] 1 tablet by mouth once daily. 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 Lazaro 03/2018 Multiple thyroid nodules 02/27/2018 US 03/2020 per radiology no further f/u needed.. All benign Biopsy 03/[address] Lazaro. Benign. Obesity, Class II, BMI 35-39.9 10/21/2022 Obstructive sleep apnea syndrome 01/27/2017 On CPAP Other joint derangement, not elsewhere classified, lower leg 03/25/2013 Primary insomnia 07/28/2020 QT prolongation 04/20/2021 Seen [facility] 04/19/2021: Camargo to be benign and related to anti-depressants. No changes needed. TMJ (temporomandibular joint disorder) 03/31/2014 Right side Type 2 diabetes mellitus without complication, without long-term current use of insulin ([facility]) 01/19/2017 Well adult exam 12/17/2014 Last [...] Celexa [Citalo (more content not included)... Normal [facility] PAIN PANEL, UR QUANTon 08-19 8-Zdeqmalfhe-1,5-Dime thyl-3,3-Diphenylpyrr olidine (EDDP) Confirm (U) [Mass/Vol] <6 Normal <6 [facility] Comment on above: Order Comment: Speci men Type: URINE SPECIMENOrdering Facility: [facility] Address: [address] [place] [address] Result Comment: EDDP is a metabolite of methadone. Performed By: #### L [id number] ####[facility] [id number] [place] [address] [place] 6-Monoacetylmorphine (6-FIGUEROA) (U) [Mass/Vol] <5 Normal <5 [facility] Comment on above: Order Comment: Speci men Type: URINE SPECIMENOrdering Facility: [facility] Address: [address] [place] [address] Result Comment: 6-MA M (6-monoacetylmorphine, also known as 6-acetylmorphine) is a unique metabolite of heroin. Presence of 6-FIGUEROA indicates use of heroin. 6-FIGUEROA is further metabolized to morphine and absence of 6-FIGUEROA does not rule out the use of heroin. Performed By: #### L [id number] ####[facility] [id number] [place] [address] [place] Amphetamine Confirm (U) [Mass/Vol] <5 Normal <5 [facility] Comment on above: Order Comment: Speci men Type: URINE SPECIMENOrdering Facility: [facility] Address: [address] [place] [address] Performed By: #### L [id number] ####[facility] [id number] [place] [address] [place] Benzoylecgonine Confirm (U) [Mass/Vol] <24 Normal <24 [facility] Comment on above: Order Comment: Speci men Type: URINE SPECIMENOrdering Facility: [facility] Address: [address] [place] [address] Result Comment: Horacio oylecgonine is a metabolite of cocaine. Performed By: #### L [id number] ####[facility] [id number] [place] [address] [place] Buprenorphine (U) [Mass/Vol] <20 Normal <20 [facility] Comment on above: Order Comment: Speci men Type: URINE SPECIMENOrdering Facility: [facility] Address: [address] [place] [address] Performed By: #### L [id number] ####[facility] [id number] [place] [address] [place] Cannabinoids Confirm (U) [Mass/Vol] <16 Normal <16 [facility] Comment on above: Order Comment: Speci men Type: URINE SPECIMENOrdering Facility: [facility] Address: [address] [place] [address] Result Comment: Tetr ahydrocannabinol carboxylic acid (THCA) is a metabolite of drhnf-2-celeyiyyiovoopegyzvt which is the main active component of marijuana. Performed By: #### L [id number] ####[facility] [id number] [place] [address] [place] Codeine Confirm (U) [Mass/Vol] <11 Normal <11 [facility] Comment on above: Order Comment: Speci men Type: URINE SPECIMENOrdering Facility: [facility] Address: [address] [place], [place] [id number] Performed By: #### L [id number] ####[facility] [id number] [address] [place] Dihydrocodeine Confirm (U) [Mass/Vol] <5 Normal <5 [facility] Comment on above: Order Comment: Speci men Type: URINE SPECIMENOrdering Facility: [facility] Address: [address] [place] [address] Performed By: #### L [id number] ####[facility] [id number] [place] [address] [place] fentaNYL Confirm (U) [Mass/Vol] <6 Normal <6 [facility] Comment on above: Order Comment: Speci men Type: URINE SPECIMENOrdering Facility: [facility] Address: [address] [place] [address] Performed By: #### L [id number] ####[facility] [id number] [address] [place] HYDROcodone Confirm (U) [Mass/Vol] <8 Normal <8 [facility] Comment on above: Order Comment: Speci men Type: URINE SPECIMENOrdering Facility: [facility] Address: [address] [place] [address] Result Comment: Hydr ocodone is a metabolite of dihydrocodeine. Performed By: #### L [id number] ####[facility] [id number] [address] [place] HYDROmorphone Confirm (U) [Mass/Vol] <5 Normal <5 [facility] Comment on above: Order Comment: Speci men Type: URINE SPECIMENOrdering Facility: [facility] Address: [address] [place] [address] Result Comment: Hydr omorphone is a metabolite of hydrocodone. Performed By: #### L [id number] ####[facility] [id number] [address] [place] Methadone Confirm (U) [Mass/Vol] <16 Normal <16 [facility] Comment on above: Order Comment: Speci men Type: URINE SPECIMENOrdering Facility: [facility] Address: [address] [place] [address] Performed By: #### L [id number] ####[facility] [id number] [place] [address] [place] Methamphetamine Confirm (U) [Mass/Vol] <8 Normal <8 [facility] Comment on above: Order Comment: Speci men Type: URINE SPECIMENOrdering Facility: [facility] Address: [address] [place] [address] Performed By: #### L [id number] ####[facility] [id number] [address] STATES OF [facility] Morphine Confirm (U) [Mass/Vol] <10 Normal <10 [facility] Comment on above: Order Comment: Speci men Type: URINE SPECIMENOrdering Facility: [facility] Address: [address] [place] [address] Result Comment: Morp zoey is a metabolite of codeine and heroin. Performed By: #### L [id number] ####[facility] [id number] [address] [place] Norbuprenorphine (U) [Mass/Vol] <20 Normal <20 [facility] Comment on above: Order Comment: Speci men Type: URINE SPECIMENOrdering Facility: [facility] Address: [address] [place] [address] Result Comment: Norb uprenorphine is the primary active metabolite of buprenorphine. Performed By: #### L [id number] ####[facility] [id number] [place] [address] [place] Norfentanyl Confirm (U) [Mass/Vol] <6 Normal <6 [facility] Comment on above: Order Comment: Speci men Type: URINE SPECIMENOrdering Facility: [facility] Address: [address] [place] [address] Result Comment: Norf entanyl is a metabolite of fentanyl. Performed By: #### L [id number] ####[facility] [id number] [place] [address] [place] Nortramadol (U) [Mass/Vol] <20 Normal <20 [facility] Comment on above: Order Comment: Speci men Type: URINE SPECIMENOrdering Facility: [facility] Address: [address] [place] [address] Result Comment: Desm ethyltramadol is a metabolite of tramadol. Performed By: #### L [id number] ####[facility] [id number] [place] [address] [place] NOTE,UR PAIN ALFARO Normal [facility] Comment on above: Order Comment: Speci men Type: URINE SPECIMENOrdering Facility: [facility] Address: [address] [place] [address] Result Comment: This test is for medical use only. This test was developed, and its performance characteristics determined by the [facility] Department of Pathology and Laboratory Medicine. It has not been cleared or approved by the FDA. The [facility] Department of Pathology and Laboratory Medicine is regulated under CLIA as qualified to perform high-complexity testing. This test is used for clinical purposes. It should not be regarded as investigational or for research. Performed By: #### L [id number] ####[facility] [id number] [place] [address] [place] oxyCODONE Confirm (U) [Mass/Vol] <10 Normal <10 [facility] Comment on above: Order Comment: Speci men Type: URINE SPECIMENOrdering Facility: [facility] Address: [address] [place] [address] Performed By: #### L [id number] ####[facility] [id number] [address] [place] oxyMORphone Confirm (U) [Mass/Vol] <5 Normal <5 [facility] Comment on above: Order Comment: Speci men Type: URINE SPECIMENOrdering Facility: [facility] Address: [address] [place] [address] Result Comment: Oxym orphone is a metabolite of oxycodone. Performed By: #### L [id number] ####[facility] [id number] [place] [address] [place] traMADol Confirm (U) [Mass/Vol] <25 Normal <25 [facility] Comment on above: Order Comment: Speci men Type: URINE SPECIMENOrdering Facility: [facility] Address: [address] [place] [address] Performed By: #### L [id number] ####[facility] [id number] [place] [address] [place] SPECIMEN VALIDITY, URINEon 1 10-19-2023 CHROMATE,URINE <10 Normal <50 [facility] Comment on above: Order Comment: Speci men Type: URINE SPECIMEN [facility] Address: [address] [place] [address] Performed By: #### L [id number] #### [facility] CLIA [id number] [address] [place] [address] [place] CREATININE,URINE 180.5 mg/dL Normal 20.0-300.0 [facility] Comment on above: Order Comment: Speci men Type: URINE SPECIMEN [facility] Address: [address] [place] [address] Performed By: #### L [id number] #### [facility] CLIA [id number] [address] [place] [address] [place] NITRITES,URINE <50 Normal <500 [facility] Comment on above: Order Comment: Speci men Type: URINE SPECIMEN [facility] Facility[facility] Address: [address] [place] [address] Performed By: #### L [id number] #### [facility] CLIA [id number] [address] [place] [address] [place] OXIDANTS,URINE <38 Normal <200 [facility] Comment on above: Order Comment: Speci men Type: URINE SPECIMEN [facility] Address: [address] [place] [address] Performed By: #### L [id number] #### [facility] CLIA [id number] [address] [place] [address] [place] pH (U) 5.7 [pH] Normal 4.5-8.0 [facility] Comment on above: Order Comment: Speci men Type: URINE SPECIMEN [facility] Address: [address] [place] [address] Performed By: #### L [id number] #### [facility] CLIA [id number] [address] [place] [address] [place] SPEC GRAVITY,UR 1.028 Normal 1.003-1.035 [facility] Comment on above: Order Comment: Speci men Type: URINE SPECIMEN [facility] Address: [address] [place] [address] Performed By: #### L [id number] #### [facility] CLIA [id number] [address] [place] [address] [place] SPECIMEN VALIDITY QUALITY Specimen quality results within acceptable limits Normal [facility] Comment on above: Order Comment: Speci men Type: URINE SPECIMEN [facility] Address: [address] [place] [address] Performed By: #### L [id number] #### [facility] CLIA [id number] [address] [place] [address] [place] TOXICOLOGY SCREEN, ROUTINE U RINEon 08-19-2024 Amphetamines Confirm (U) [Mass/Vol] Negative Normal Negative [facility] Comment on above: Order Comment: Speci men Type: BLOOD SPECIMEN [facility] Address: [address] [place] [address] Result Comment: Cuto ff threshold at 1000 ng/mL. Performed By: #### 6 768-6, 9, 04048-3 #### [facility] CLIA [id number] [address] [place] [address] [place] BARBITURATES, URINE Negative Normal Negative [facility] Comment on above: Order Comment: Speci men Type: BLOOD SPECIMEN [facility] Address: [address] [place] [address] Result Comment: Cuto ff threshold at 200 ng/mL. Performed By: #### 6 768-6, 2132-06, #### [facility] CLIA [id number] [address] [place] [address] [place] BENZODIAZEPINES, UR Negative Normal Negative [facility] Comment on above: Order Comment: Speci men Type: BLOOD SPECIMEN [facility] Address: [address] [place] [address] Result Comment: Cuto ff threshold at 200 ng/mL. Performed By: #### 6 768-6, 2132-06, #### [facility] CLIA [id number] [address] [place] [address] [place] Cannabinoids Screen Ql (U) Negative Normal Negative [facility] Comment on above: Order Comment: Speci men Type: BLOOD SPECIMEN [facility] Address: [address] [place] [address] Result Comment: Cuto ff threshold at 50 ng/mL. Performed By: #### 6 768-6, 2132-06, 88663-9 #### [facility] CLIA [id number] [address] [place] [address] [place] Cocaine Ql (U) Negative Normal Negative [facility] Comment on above: Order Comment: Speci men Type: BLOOD SPECIMEN [facility] Address: [address] [place] [address] Result Comment: Cuto ff threshold at 300 ng/mL. Performed By: #### 6 768-6, 2132-06, #### [facility] CLIA [id number] [address] [place] [address] [place] Ethanol (U) [Mass/Vol] <11 Normal <11 [facility] Comment on above: Order Comment: Speci men Type: BLOOD SPECIMEN [facility] Address: [address] [place] [address] Performed By: #### 6 768-6, 2132-06, #### [facility] CLIA [id number] [address] [place] [address] [place] Opiates Screen Ql (U) Negative Normal Negative [facility] Comment on above: Order Comment: Speci men Type: BLOOD SPECIMEN [facility] Address: [address] [place] [address] Result Comment: Cuto ff threshold at 300 ng/mL. Performed By: #### 6 768-6, 2132-06, #### [facility] CLIA [id number] [address] [place] [address] [place] oxyCODONE cutoff Screen (U) [Mass/Vol] Negative Normal Negative [facility] Comment on above: Order Comment: Speci men Type: BLOOD SPECIMEN [facility] Address: [address] [place] [address] Result Comment: Cuto ff threshold at 100 ng/mL. Performed By: #### 6 768-6, 2132-06, #### [facility] CLIA [id number] [address] [place] [address] [place] Phencyclidine Ql (U) Negative Normal Negative [facility] Comment on above: Order Comment: Speci men Type: BLOOD SPECIMEN [facility] Address: [address] [place] [address] Result Comment: Cuto ff threshold at 25 ng/mL. Performed By: #### 6 768-6, 2132-9, 51401-5 #### [facility] CLIA [id number] [address] [place] [address] OF [facility] CNTHERAPYon 08-05-2024 CNTHERAPY OT/PT/Speech Visit ( PTWS) -- BIANCA DELAROSA ([id number]) 1975 [facility] Date Time Provider Department 08/05/24 7:45 AM STORM PATEL PTAMOR Date Time Provider Department Center 08/05/2024 7:45 AM [id number], BRENT PTWS Irina Sharma Reason for Visit: [...] capsule by mouth once daily. - Insulin Potwin, Disposable, (DROPLET PEN NEEDLE) 31 gauge x [...] choice. LIFETIME SUPPLIES. SD Card. Download to [employer]. - multivitamin tablet Take 1 tablet by mouth once daily. Terrazzo Layer Helper: Addendum Therapy (PT/OT/Speech/Resp) ID: [id number] 08/05/2024 8:31 AM Author: STORM PATEL Signed by STORM PATEL PT on 08/05/2024 at 8:31 AM * * * This document replaces document [id number] * * * Document text: Program_ID:[id number] Access Code: [email or web address] URL: [email or web address] Date: 08-05-2024 Prepared By: Storm Patel Program [...] weekly - sets - 1 reps Normal [facility] THERAPY NTon 08-05-2024 THERAPY NT HNO ID: [id number] Author: STORM PATEL PT Service: ? Author Type: Physical Therapist Type: Therapy (PT/OT/Speech/Resp) Filed: 08/05/2024 08:31 Note Text: Program_ID:[id number] Access Code: [email or web address] URL: [email or web address] Date: 08-05-2024 Prepared By: Storm Patel Program [...] weekly - sets - 1 reps Normal [facility] CNTHERAPYon 07-22-2024 CNTHERAPY OT/PT/Speech Visit ( PTWS) -- BIANCA DELAROSA ([id number]) 1975 M [facility] Date Time Provider Department 07/22/24 9:30 AM STORM PATEL PTWS Date Time Provider Department Center 07/22/2024 9:30 AM [id number], BRENT PTWS Irina Sharma Reason for Visit: [...] capsule by mouth once daily. - Insulin Potwin, Disposable, (DROPLET PEN NEEDLE) 31 gauge x [...] choice. LIFETIME SUPPLIES. SD Card. Download to [employer]. - multivitamin tablet Take 1 tablet by mouth once daily. Normal [facility] CNTHERAPYon 06-28-2024 CNTHERAPY OT/PT/Speech Visit ( PTWS) -- BIANCA DELAROSA ([id number]) 1975 M [facility] Date Time Provider Department 06/28/24 8:00 AM RUBY CHO PTWS Date Time Provider Department Center 06/28/2024 8:00 AM [id number], MARIAH PTWS Irina Zachary Reason for Visit: [...] Comments: drowsy Date Reviewed: 06/06/2024 Reviewed by: Chyu Jackson MA - Fully Assessed Prescriptions as [...] capsule by mouth once daily. - Insulin Potwin, Disposable, (DROPLET PEN NEEDLE) 31 gauge x [...] choice. LIFETIME SUPPLIES. SD Card. Download to [employer]. - multivitamin tablet Take 1 tablet by mouth once daily. Terrazzo Layer Helper: Therapy (PT/OT/Speech/Resp) ID: [id number] 06/28/2024 8:41 AM Author: RUBY CHO Signed by RUBY CHO PTA on 06/28/2024 at 8:41 AM Document text: Program_ID:[id number] Access Code: [email or web address] URL: [email or web address] Date: 06-28-2024 Prepared By: Storm Patel Program [...] - 2 sets - 10 reps Normal [facility] THERAPY NTon 06-28-2024 THERAPY NT HNO ID: [id number] Author: RUBY CHO PTA Service: ? Author Type: Change Control Specialist Type: Therapy (PT/OT/Speech/Resp) Filed: 06/28/2024 08:41 Note Text: Program_ID:[id number] Access Code: [email or web address] URL: [email or web address] [email or web address] Date: 06-28-2024 Prepared By: Storm Patel Program [...] - 2 sets - 10 reps Normal [facility] CNTHERAPYon 06-12-2024 CNTHERAPY OT/PT/Speech Visit ( PTWS) -- BIANCA DELAROSA ([id number]) 1975 M [facility] Date Time Provider Department 06/12/24 9:00 AM STORM PATEL PTAMOR Date Time Provider Department Center 06/12/2024 9:00 AM [id number], BRENT PTAMOR [place] Reason for Visit: PT Eval [747] [...] capsule by mouth once daily. - Insulin Potwin, Disposable, (DROPLET PEN NEEDLE) 31 gauge x [...] choice. LIFETIME SUPPLIES. SD Card. Download to [employer]. - multivitamin tablet Take 1 tablet by mouth once daily. Terrazzo Layer Helper: Therapy (PT/OT/Speech/Resp) ID: [id number] 06/12/2024 9:40 AM Author: STORM PATEL Signed by STORM PATEL PT on 06/12/2024 at 9:40 AM Document text: Program_ID:[id number] Access Code: [email or web address] URL: [email or web address] Date: 06-12-2024 Prepared By: Storm Patel Program [...] - 2 sets - 10 reps Normal [facility] THERAPY NTon 06-12-2024 THERAPY NT HNO ID: [id number] Author: STORM PATEL PT Service: ? Author Type: Physical Therapist Type: Therapy (PT/OT/Speech/Resp) Filed: 06/12/2024 09:40 Note Text: Program_ID:[id number] Access Code: [email or web address] URL: [email or web address] Date: 06-12-2024 Prepared By: Storm Patel Program [...] - 2 sets - 10 reps Normal [facility] CNOVon 06-06-2024 CNOV Office Visit (FAMPWS ) -- BIANCA DELAROSA ([id number]) 1975 M [facility] Date Time Provider Department 06/06/24 8:00 AM DOMINIK KELLEY During your visit today, we recorded the following information about you: Pulse Respiration Blood pressure Weight 83/minute 14/minute 116/80 135.6 kg Dominik Kelley, WEIGH BOX TENDER.MECHANICAL MANUFACTURING TECHNICIAN 06/06/2024 8:09 AM Signed Chief Complaint Patient [...] Primary insomnia 04/20/2021: QT prolongation Comment: Seen [facility] 04/19/2021: Camargo to be benign and related to anti-depressants. No changes needed. 03/31/2014: TMJ (temporomandibular joint disorder) Comment: Right side 01/19/2017: Type 2 diabetes mellitus without complication, without long-term current use of insulin ([facility]) 12/17/2014: Well adult exam Comment: Last [...] Fenofibrate (LOFIBRA) (more content not included)... Normal [facility] 05-27-2024 [facility] Telephone ([facility]) -- BIANCA DELAROSA ([id number]) 1975 [facility] Date Time Provider Department 05/27/24 DOMINIK KELLEY [facility] During your visit today, we recorded the following information about you: Dominik Kelley APRN.[facility] 05/27/2024 8:17 AM Signed Please let patient [...] capsule by mouth once daily. - Insulin Potwin, Disposable, (DROPLET PEN NEEDLE) 31 gauge x 3/16 Use 4 PEN NEEDLES to inject MEDICATION subcutaneously daily - metFORMIN (GLUCOPHAGE) 500 mg tablet Take 2 tablets by mouth two times a day with meals. - Blood-Glucose Sensor (FREESTYLE EVERT 3 SENSOR) agens Use one sensor every 14 day, IDDM, E11.9 - zonisamide (ZONEGRAN) 25 mg capsule Take 1 capsule by mouth once daily. - CPAP AUTO PAP 5-20 cmH20, CHIN STRAP, heated HUMIDITY, mask of patient's choice. LIFETIME SUPPLIES. SD Card. Download to [employer]. - multivitamin tablet Take 1 tablet by [...] *09/26/2018 GERD without esophagitis [K21.9] 09/26/2018 Lump [PPW5390] 11/16/2019 ISABELLA (generalized anxiety disorder) [F41.1] 06/22/2020 Primary insomnia [F51.01] 07/28/2020 Medication management [Z79.899] 07/28/2020 Joint stiffness of right lower leg [M25.661] 10/21/2020 12/22/2020 Right leg weakness [R29.898] 10/21/2020 12/22/2020 QT prolongation [R94.31] 04/20/2021 Obesity, Class II, BMI 35-39.9 [E66.9] 10/21/2022 Attention deficit disorder (ADD) without hypera*12/07/2022 History of COVID-19 [Z86.16] 09/23/2023 Encounter Status:Closed by WORKMAN CHUY ROSADO on 05/28/24 Normal [facility] XR Shoulder - right 3 Viewso n 05-26-2024 IMPRESSION: No acute bone abnormality. Utility Mechanic: GORGE Transcribe Date/Time: May 26 2024 7:31P [...] joint. _ _ DIVISION OF RADIOLOGY Provider, [facility] - 05/26/2024 * * *Final Report* * [...] _ IMPRESSION IMPRESSION: No acute bone abnormality. Utility Mechanic: PSCB Transcribe Date/Time: May 26 2024 7:31P Dictated by : MARYANN MURILLO MD This examination was interpreted and the report reviewed and electronically signed by: MARYANN MURILLO MD on May 26 2024 7:32PM EST [facility] XR Shoulder - right 3 ViewsO rdered By: Ccf Provider on 05-26-2024 [facility] CBC W Auto Differential pane l (Bld)on 05-21-2024 Basophils (Bld) [#/Vol] 0.06 10*3/uL Normal <0.11 [facility] Comment on above: Order Comment: Speci men Type: BLOOD SPECIMENOrdering Facility: [facility] Address: [address] [place] [address] Performed By: #### 5 7021-8 ####[facility] [id number] [place] [address] [place] Basophils/100 WBC (Bld) 0.6 % Normal [facility] Comment on above: Order Comment: Speci men Type: BLOOD SPECIMENOrdering Facility: [facility] Address: [address] [place] [address] Performed By: #### 5 7021-8 ####[facility] [id number] [place] [address] [place] Differential cell count method Nom (Bld) Auto Normal [facility] Comment on above: Order Comment: Speci men Type: BLOOD SPECIMENOrdering Facility: [facility] Address: [address] [place] [address] Performed By: #### 5 7021-8 ####[facility] [id number] [place] [address] [place] Eosinophils (Bld) [#/Vol] 0.17 10*3/uL Normal <0.46 [facility] Comment on above: Order Comment: Speci men Type: BLOOD SPECIMENOrdering Facility: [facility] Address: [address] [place] [address] Performed By: #### 5 7021-8 ####[facility] [id number] [place] [address] [place] Eosinophils/100 WBC (Bld) 1.6 % Normal [facility] Comment on above: Order Comment: Speci men Type: BLOOD SPECIMENOrdering Facility: [facility] Address: [address] [place] [address] Performed By: #### 5 7021-8 ####[facility] [id number] [place] [address] [place] Erythrocyte distribution width (RBC) [Ratio] 11.7 % Normal 11.5-15.0 [facility] Comment on above: Order Comment: Speci men Type: BLOOD SPECIMENOrdering Facility: [facility] Address: [address] [place] [address] Performed By: #### 5 7021-8 ####[facility] [id number] [place] [address] [place] Hematocrit (Bld) [Volume fraction] 44.8 % Normal 39.0-51.0 [facility] Comment on above: Order Comment: Speci men Type: BLOOD SPECIMENOrdering Facility: [facility] Address: [address] [place] [address] Performed By: #### 5 7021-8 ####[facility] [id number] [place] [address] [place] Hemoglobin (Bld) [Mass/Vol] 15.3 g/dL Normal 13.0-17.0 [facility] Comment on above: Order Comment: Speci men Type: BLOOD SPECIMENOrdering Facility: [facility] Address: [address] [place] [address] Performed By: #### 5 7021-8 ####[facility] [id number] [place] [address] [place] Immature granulocytes (Bld) [#/Vol] 0.03 10*3/uL Normal <0.10 [facility] Comment on above: Order Comment: Speci men Type: BLOOD SPECIMENOrdering Facility: [facility] Address: [address] [place] [address] Performed By: #### 5 7021-8 ####[facility] [id number] [place] [address] [place] Immature granulocytes/100 WBC (Bld) 0.3 % Normal [facility] Comment on above: Order Comment: Speci men Type: BLOOD SPECIMENOrdering Facility: [facility] Address: [address] [place] [address] Performed By: #### 5 7021-8 ####[facility] [id number] [place] [address] [place] Lymphocytes (Bld) [#/Vol] 3.30 10*3/uL Normal 1.00-4.00 [facility] Comment on above: Order Comment: Speci men Type: BLOOD SPECIMENOrdering Facility: [facility] Address: [address] [place] [address] Performed By: #### 5 7021-8 ####[facility] [id number] [place] [address] [place] Lymphocytes/100 WBC (Bld) 31.6 % Normal [facility] Comment on above: Order Comment: Speci men Type: BLOOD SPECIMENOrdering Facility: [facility] Address: [address] [place] [address] Performed By: #### 5 7021-8 ####[facility] [id number] [place] [address] [place] MCH (RBC) [Entitic mass] 30.7 pg Normal 26.0-34.0 [facility] Comment on above: Order Comment: Speci men Type: BLOOD SPECIMENOrdering Facility: [facility] Address: [address] [place] [address] Performed By: #### 5 7021-8 ####[facility] [id number] [place] [address] [place] MCHC (RBC) [Mass/Vol] 34.2 g/dL Normal 30.5-36.[address] [facility] Comment on above: Order Comment: Speci men Type: BLOOD SPECIMENOrdering Facility: [facility] Address: [address] [place] [address] Performed By: #### 5 7021-8 ####[facility] [id number] [place] [address] [place] MCV (RBC) [Entitic vol] 89.8 fL Normal 80.0-100.0 [facility] Comment on above: Order Comment: Speci men Type: BLOOD SPECIMENOrdering Facility: [facility] Address: [address] [place] [address] Performed By: #### 5 7021-8 ####[facility] [id number] [place] [address] [place] Monocytes (Bld) [#/Vol] 0.49 10*3/uL Normal <0.87 [facility] Comment on above: Order Comment: Speci men Type: BLOOD SPECIMENOrdering Facility: [facility] Address: [address] [place] [address] Performed By: #### 5 7021-8 ####[facility] [id number] [place] [address] [place] Monocytes/100 WBC (Bld) 4.7 % Normal [facility] Comment on above: Order Comment: Speci men Type: BLOOD SPECIMENOrdering Facility: [facility] Address: [address] [place] [address] Performed By: #### 5 7021-8 ####[facility] [id number] [place] [address] [place] Neutrophils (Bld) [#/Vol] 6.39 10*3/uL Normal 1.45-7.50 [facility] Comment on above: Order Comment: Speci men Type: BLOOD SPECIMENOrdering Facility: [facility] Address: [address] [place] [address] Performed By: #### 5 7021-8 ####[facility] [id number] [place] [address] [place] Neutrophils/100 WBC (Bld) 61.2 % Normal [facility] Comment on above: Order Comment: Speci men Type: BLOOD SPECIMENOrdering Facility: [facility] Address: [address] [place] [address] Performed By: #### 5 7021-8 ####[facility] [id number] [place] [address] [place] Nucleated RBC (Bld) [#/Vol] 10*3/uL Normal <0.01 [facility] Comment on above: Order Comment: Speci men Type: BLOOD SPECIMENOrdering Facility: [facility] Address: [address] [place] [address] Performed By: #### 5 7021-8 ####[facility]IA [id number] [place] [address] [place] Nucleated RBC/100 WBC (Bld) [Ratio] 0.0 /100 WBC Normal [facility] Comment on above: Order Comment: Speci men Type: BLOOD SPECIMENOrdering Facility: [facility] Address: [address] [place] [address] Performed By: #### 5 7021-8 ####[facility] [id number] [place] [address] [place] Platelet mean volume (Bld) [Entitic vol] 12.9 fL High 9.0-12.7 [facility] Comment on above: Order Comment: Speci men Type: BLOOD SPECIMENOrdering Facility: [facility] Address: [address] [place] [address] Performed By: #### 5 7021-8 ####[facility] [id number] [place] [address] [place] Platelets (Bld) [#/Vol] 254 10*3/uL Normal 150-400 [facility] Comment on above: Order Comment: Speci men Type: BLOOD SPECIMENOrdering Facility: [facility] Address: [address] [place] [address] Performed By: #### 5 7021-8 ####[facility] [id number] [place] [id number] [place] RBC (Bld) [#/Vol] 4.99 10*6/uL Normal 4.20-6.00 [facility] Comment on above: Order Comment: Speci men Type: BLOOD SPECIMENOrdering Facility: [facility] Address: [address] [place] [address] Performed By: #### 5 7021-8 ####[facility] [id number] [place] [address] [place] WBC (Bld) [#/Vol] 10.44 10*3/uL Normal 3.70-11.00 [facility] Comment on above: Order Comment: Speci men Type: BLOOD SPECIMENOrdering Facility: [facility] Address: [address] [place] [address] Performed By: #### 5 7021-8 ####[facility] LABIA [id number] [place] [address] [place] CNOVon 05-21-2024 CNOV Office Visit (LIVEWS ) -- BIANCA DELAROSA ([id number]) 1975 M [facility] Date Time Provider Department 05/21/24 3:40 PM DOMINIK KELLEY During your visit today, we recorded the following information about you: Pulse Respiration Blood pressure Weight 105/minute 14/minute 150/98 134.7 kg Dominik Kelley, WEIGH BOX TENDER.MECHANICAL MANUFACTURING TECHNICIAN 05/21/2024 3:57 PM Signed Chief Complaint Patient [...] Acute hypoxemic respiratory failure due to COVID-19 ([facility]) 03/31/2014: Agitation 03/31/2014: Allergic rhinitis 03/31/2014: Allergy-induced asthma Comment: Mild intermitant 12/07/2022: Attention 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 Comment: Substance agreement signed 12/2022, Tox screen done 12/202209/26/2018: Current use of proton pump inhibitor 01/27/2017: Diabetic eye exam ([facility]) Comment: Last eye exam: 03/05/2019 03/31/2014: Diverticulosis 03/31/2014: Dyslipidemia Comment: Low HDL, High Trigs 03/31/2014: Elevated antinuclear antibody (JLAEEL) level 03/31/2014: Family history of malignant neoplasm of gastrointestinal tract 06/22/2020: ISABELLA (generalized anxiety disorder) 09/26/2018: GERD without esophagitis 03/31/2014: Hiatal hernia 09/23/2023: History of COVID-19 Comment: 2021, 09/202303/31/2014: Hx of colonic polyp Comment: Needs next colonoscopy 08/202211/16/2019: Lump Comment: benign left palm 09/26/2018: Major depressive disorder with single episode, in partial remission ([facility]) 09/11/2015: Migraine without aura and without status migrainosus, not intractable 03/31/2014: Mood disorder ([facility]) 02/27/2018: Multiple thyroid nodules Comment: Seen Dr. Lazaro 03/201802/27/2018: Multiple thyroid nodules Comment: US 03/2020 per radiology no further f/u needed.. All benign Biopsy 03/[address] Lazaro. Benign. 10/21/2022: Obesity, Class II, BMI 35-39.9 01/27/2017: Obstructive sleep apnea syndrome Comment: On CPAP 03/25/2013: Other joint derangement, not elsewhere classified, lower leg 07/28/2020: Primary insomnia 04/20/2021: QT prolongation Comment: Seen [facility] 04/19/2021: Camargo to be benign and related to anti-depressants. No changes needed. 03/31/2014: TMJ (temporomandibular joint disorder) Comment: Right side 01/19/2017: Type 2 diabetes mellitus without complication, without long-term current use of insulin ([facility]) 12/17/2014: Well adult exam Comment: Last [...] once daily. (more content not included)... Normal [facility] Comprehensive metabolic 2000 panelon 05-21-2024 Albumin [Mass/Vol] 4.3 g/dL Normal 3.9-4.9 [facility] Comment on above: Order Comment: Speci men Type: BLOOD SPECIMEN [facility] Address: [address] [place] [address] Performed By: #### 6 768-6, 2132-06, #### [facility] CLIA [id number] [address] [place] [address] [place] ALP [Catalytic activity/Vol] 168 U/L High 38-113 [facility] Comment on above: Order Comment: Speci men Type: BLOOD SPECIMEN [facility] Address: [address] [place] [address] Performed By: #### 6 768-6, 2132-06, #### [facility] CLIA [id number] [address] [place] [address] [place] ALT [Catalytic activity/Vol] 24 U/L Normal 10-54 [facility] Comment on above: Order Comment: Speci men Type: BLOOD SPECIMEN [facility] Address: [address] [place] [address] Performed By: #### 6 768-6, 2132-06, #### [facility] CLIA [id number] [address] [place] [address] [place] Anion gap [Moles/Vol] 13 mmol/L Normal 8-[address] [facility] Comment on above: Order Comment: Speci men Type: BLOOD SPECIMEN [facility] Address: [address] [place] [address] Performed By: #### 6 768-6, 2132-06, #### [facility] CLIA [id number] [address] [place] [address] [place] AST [Catalytic activity/Vol] 36 U/L Normal 14-40 [facility] Comment on above: Order Comment: Speci men Type: BLOOD SPECIMEN [facility] Address: [address] [place] [address] Performed By: #### 6 768-6, 2132-06, #### [facility] CLIA [id number] [address] [place], [place] [address] [place] Bilirubin [Mass/Vol] 0.3 mg/dL Normal 0.2-1.3 [facility] Comment on above: Order Comment: Speci men Type: BLOOD SPECIMEN [facility] Address: [address] [place] [address] Performed By: #### 6 768-6, 2132-06, #### [facility] CLIA [id number] [address] [place] [address] [place] Calcium [Mass/Vol] 9.4 mg/dL Normal 8.5-10.2 [facility] Comment on above: Order Comment: Speci men Type: BLOOD SPECIMEN [facility] Address: [address] [place] [address] Performed By: #### 6 768-6, 2132-06, #### [facility] CLIA [id number] [address] [place], [place] [address] [place] Chloride [Moles/Vol] 98 mmol/L Normal 98-107 [facility] Comment on above: Order Comment: Speci men Type: BLOOD SPECIMEN [facility] Address: [address] [place], [place] [address] Performed By: #### 6 768-6, 2132-06, #### [facility] CLIA [id number] [address] [place], [place] [address] [place] CO2 [Moles/Vol] 22 mmol/L Normal 22-30 [facility] Comment on above: Order Comment: Speci men Type: BLOOD SPECIMEN [facility] Address: [address] [place] [address] Performed By: #### 6 768-6, 2132-06, #### [facility] CLIA [id number] [address] [place], [place] [address] [place] Creatinine [Mass/Vol] 0.73 mg/dL Normal 0.73-1.[address] [facility] Comment on above: Order Comment: Speci men Type: BLOOD SPECIMEN [facility] Address: [address] [place] [address] Performed By: #### 6 768-6, 2132-06, #### [facility] CLIA [id number] [address] [place] [address] [place] Creatinine and Glomerular filtration rate.predicted panel (S/P/Bld) 112 mL/min/1.73m??? Normal >=60 [facility] Comment on above: Order Comment: Speci men Type: BLOOD SPECIMEN [facility] Address: [address] [place] [address] Result Comment: Tia mated Glomerular Filtration Rate [...] Performed By: #### 6 768-6, 9, #### [facility] CLIA [id number] [address] [place] [address] [place] Glucose [Mass/Vol] 361 mg/dL High 74-99 [facility] Comment on above: Order Comment: Catherine hendrix Type: BLOOD SPECIMEN Ordering Facility: [facility] Address: [address] [place] [address] Result Comment: The [place] Diabetes Association (ADA) provides guidance for cutoff [...] Standards of Medical Care in Diabetes 2016, [place] Diabetes Association. Diabetes Care. 2016.39(Suppl 1). Performed By: #### 6 768-6, 2132-06, #### [facility] CLIA [id number] [address] [place] [address] [place] Potassium [Moles/Vol] 4.3 mmol/L Normal 3.7-5.[address] [facility] Comment on above: Order Comment: Catherine hendrix Type: BLOOD SPECIMEN Ordering Facility: [facility] Address: [address] [place] [address] Performed By: #### 6 768-6, 2132-06, #### [facility] CLIA [id number] [address] [place] [address] [place] Protein [Mass/Vol] 6.7 g/dL Normal 6.3-8.0 [facility] Comment on above: Order Comment: Catherine hendrix Type: BLOOD SPECIMEN [facility]ing Facility: [facility] Address: [address] [place] [address] Performed By: #### 6 768-6, 2132-06, #### [facility] CLIA [id number] [address], [place] [address] [place] Sodium [Moles/Vol] 133 mmol/L Low 136-144 [facility] Comment on above: Order Comment: Catherine hendrix Type: BLOOD SPECIMEN [facility]ing Facility: [facility] Address: [address] [place] [address] Performed By: #### 6 768-6, 2132-06, #### [facility] CLIA [id number] [address] [place] [address] [place] Urea nitrogen [Mass/Vol] 9 mg/dL Normal 9-24 [facility] Comment on above: Order Comment: Catherine hendrix Type: BLOOD SPECIMEN [facility]ing Facility: [facility] Address: [address] [place] [address] Performed By: #### 6 768-6, 2132-06, #### [facility] CLIA [id number] [address] [place] [address] [place] HbA1c (Bld)on 05-21-2024 Average glucose Estimated from glycated hemoglobin (Bld) [Mass/Vol] 295 mg/dL Normal [facility] Comment on above: Order Comment: Catherine hendrix Type: BLOOD SPECIMEN [facility]ing Facility: [facility] Address: [address] [place] [address] Result Comment: eAG: (Estimated average glucose) is a calculated value from HgbA1c and is labor service representative of the average blood glucose level in the last 2-3 month period. Performed By: #### 6 768-6, 2132-06, #### [facility] CLIA [id number] [address] [place], [place] [id number] [place] HbA1c (Bld) [Mass fraction] 11.9 % High 4.3-5.6 [facility] Comment on above: Order Comment: Catherine hendrix Type: BLOOD SPECIMEN [facility]ing Facility: [facility] Address: [address] [place] [address] Result Comment: Amer [place] Diabetes Association guidelines indicate that patients with HgbA1c in the range 5.7-6.4% are at increased risk for development of diabetes, and intervention by lifestyle modification may be beneficial. HgbA1c greater or equal to 6.5% is considered diagnostic of diabetes. Performed By: #### 6 768-6, 2132-06, #### [facility] CLIA [id number] [address] [place] [address] [place] LIPID PANEL, NONFASTINGon Cholesterol [Mass/Vol] 213 mg/dL High <200 [facility] Comment on above: Order Comment: Catherine men Type: BLOOD SPECIMEN [facility]: [facility] Address: [address] [place] [address] Result Comment: <200 mg/dL, Desirable 200-239 mg/dL, Borderline high >239 mg/dL, High Performed By: #### 6 768-6, 2132-06, #### [facility] CLIA [id number] [address] [place] [address] [place] HDL CHOLESTEROL, NF 24 mg/dL Low >39 [facility] Comment on above: Order Comment: Catherine hendrix Type: BLOOD SPECIMEN [facility]ing Facility: [facility] Address: [address] [place] [address] Result Comment: 40-5 9 mg/dL, Acceptable >59 mg/dL, High: Negative risk factor for coronary heart disease <40 mg/dL, Low: Positive risk factor for coronary heart disease Performed By: #### 6 768-6, 2132-06, #### [facility] CLIA [id number] [address] [place] [address] [place] LDL CHOLESTEROL, NF Normal [facility] Comment on above: Order Comment: Catherine hendrix Type: BLOOD SPECIMEN [facility]ing Facility: [facility] Address: [address] [place] [address] Result Comment: Unab le to calculate due to increased Triglycerides. A Direct LDL Cholesterol measurement will not be performed. If clinically indicated, a fasting Basic Lipid Panel (LIPB) may be ordered. Performed By: #### 6 768-6, 2132-06, #### [facility] CLIA [id number] [address] [place] [address] [place] LDL/HDL RATIO, NF Normal [facility] Comment on above: Order Comment: Speci men Type: BLOOD SPECIMEN [facility]ing Facility: [facility] Address: [address] [place] [address] Result Comment: Unab le to calculate due to elevated Triglycerides. Reference: 1. National Cholesterol Education Program ATP III Guideline At-A-Glance Quick Desk Reference: National Heart, Lung, and Blood [place]. National Institutes of Health. 2001: NIH Publication No. 01-3305. 2. An International Atherosclerosis Society position paper: global recommendations for the management of dyslipidemia: executive summary, Atherosclerosis. 2014: 232(2):410-413. Performed By: #### 6 768-6, 2132-06, #### [facility] CLIA [id number] [address] [place] [address] [place] NON HDL CHOL, NF 189 mg/dL High <130 [facility] Comment on above: Order Comment: Catherine hendrix Type: BLOOD SPECIMEN [facility]ing Facility: [facility] Address: [address] [place] [address] Result Comment: <130 mg/dL, Optimal 130-159 mg/dL, Near optimal/above optimal 160-189 mg/dL, Borderline high 190-219 mg/dL, High >219 mg/dL, Very high Secondary prevention optimal non HDL Cholesterol levels are recommended to be <100 mg/dL Performed By: #### 6 768-6, 2132-06, #### [facility] CLIA [id number] [address] [place] [address] [place] T CHOL/HDL RATIO NF 8.88 mg/dL High <5.10 [facility] Comment on above: Order Comment: Speci men Type: BLOOD SPECIMEN [facility] Facility[facility] Address: [address] [place] [address] Performed By: #### 6 768-6, 2132-06, #### [facility] CLIA [id number] [address] [place] [address] [place] TRIGLYCERIDES, NF 1046 mg/dL High <150 [facility] Comment on above: Order Comment: Speci men Type: BLOOD SPECIMEN Ordering Facility: [facility] Address: [address] [place] [address] Result Comment: <150 mg/dL, Normal 150-199 mg/dL, Borderline high 200-499 mg/dL, High >499 mg/dL, Very high Performed By: #### 6 768-6, 2132-06, #### [facility] CLIA [id number] [address] [place] [address] [place] VLDL CHOLESTEROL, NF Normal [facility] Comment on above: Order Comment: Speci men Type: BLOOD SPECIMEN [facility]ing Facility: [facility] Address: [address] [place] [address] Result Comment: Unab le to calculate due to elevated Triglycerides. Performed By: #### 6 768-6, 2132-06, #### [facility] CLIA [id number] [address] [place] [address] [place] TSH SerPl-aCncon 05-21-2024 TSH Qn 1.330 m[IU]/L Normal 0.270-4.200 [facility] Comment on above: Order Comment: Speci men Type: BLOOD SPECIMEN [facility] Facility[facility] Address: [address] [place] [address] Performed By: #### 6 768-6, 2132-06, #### [facility] CLIA [id number] [address] [place] [address] [place] XR SHLDR >/=3V [...] _ _ IMPRESSION: No acute bone abnormality. Utility Mechanic: PSCB Transcribe Date/Time: May 26 2024 7:31P Dictated by : MARYANN MURILLO MD This examination was interpreted and the report reviewed and electronically signed by: MARYANN MURILLO MD on May 26 2024 7:32PM EST [id number] Normal [facility] XR Shoulder - right 3 Viewso n 05-21-2024 Radiology Study observation (narrative) [facility] Culture, Anaerobic Any Sourc venancio 03-15-2024 [...] Trimethoprim-sulfamethoxaz ole, and Clindamycin. Clostridium perfringens Normal [facility] Comment on above: Performed By: #### M 100.3000, M100.2000, M100.4001 ####[facility] [address] [place], [address] Wound Cultureon 03-14-2024 WC Klebsiella [...] TMP SMX Islt YASMINE <=20 S Normal [facility] Comment on above: Performed By: #### M 100.3000, M100.2000, M100.4001 ####[facility] [address] [place], [address] Surgery Visit Reporton 03-13 Surgery Visit Report [facility] [address] [place] [address] OFFICE VISIT Date of Service: 03/13/24 MR#: [id number] Acct: [id number] Name: BIANCA DELAROSA Rep #: [id number] : 1975 Provider: Dr. Maranda borges MD Age/Sex: 48/M Location: [facility] Status: Signed Intake Vital Signs 03/10/24 11:13 [...] Resp Respira (more content not included)... Normal [facility] Gram Stainon 03-11-2024 GS Gram Stain 4+ Gram negative rods 4+ White Blood Cells No Epithelial cells Normal [facility] Comment on above: Performed By: #### M 100.3000, M100.2000, M100.4001 ####[facility] [address] [place], [address] Basic Metabolic Profile (BMP )on 03-10-2024 BUN/CRE 14.3 RATIO Normal 10-20 [facility] Comment on above: Performed By: #### L 100.0100, L500.2500 ####[facility] [address] [place], [address] CA,Total 9.1 mg/dL Normal 8.5-10.1 [facility] Comment on above: Performed By: #### L 100.0100, L500.2500 ####[facility] [address] [place], [address] Chloride [Moles/Vol] 104 mmol/L Normal 98-107 [facility] Comment on above: Performed By: #### L 100.0100, L500.2500 ####[facility] [address] [place], [address] CO2 [Moles/Vol] 25.0 mmol/L Normal 21.0-32.0 [facility] Comment on above: Performed By: #### L 100.0100, L500.2500 ####[facility] [address] [place], [address] Creatinine [Mass/Vol] 0.84 mg/dL Normal 0.70-1.30 [facility] Comment on above: Result Comment: The validity of the calculated GFR GFRAA in patients over 70 years has not been determined. Clinical correlation is essential. Performed By: #### L 100.0100, L500.2500 ####[facility] [address] [place], [address] ECRCL 154.93 ml/min Normal [facility] Comment on above: Performed By: #### L 100.0100, L500.2500 ####[facility] [address] [place], [address] EST GFR - AA 124 mL/min Normal >60 [facility] Comment on above: Result Comment: Afri can [place] GFR Calc Performed By: #### L 100.0100, L500.2500 ####[facility] [address] [place], [address] GAP 7 Normal 5-15 [facility] Comment on above: Performed By: #### L 100.0100, L500.2500 ####[facility] [address] [place], [address] GFR/1.73 sq M.predicted among non-blacks MDRD (S/P/Bld) [Vol rate/Area] 103 mL/min/{1.73_m2} Normal >60 [facility] Comment on above: Result Comment: Non- GFR Calc Performed By: #### L 100.0100, L500.2500 ####[facility] [address] [place], [address] Glucose [Mass/Vol] 288 mg/dL High 74-106 [facility] Comment on above: Result Comment: Gluc ose result greater than or equal to 200 mg/dL suggests DIABETES MELLITUS per A.D.A. criteria. Performed By: #### L 100.0100, L500.2500 ####[facility] [address] [place], [address] Potassium [Moles/Vol] 3.8 mmol/L Normal 3.5-5.1 [facility] Comment on above: Performed By: #### L 100.0100, L500.2500 ####[facility] [address] [place], [address] Sodium [Moles/Vol] 136 mmol/L Normal 136-145 [facility] Comment on above: Performed By: #### L 100.0100, L500.2500 ####[facility] [address] [place], [address] Urea nitrogen [Mass/Vol] 12 mg/dL Normal 7-18 [facility] Comment on above: Performed By: #### L 100.0100, L500.2500 ####[facility] [address] [place], [address] CBC W/Diff, Automatedon 06-0 2-2023 Absolute Lymph 1.88 X10 3/uL Normal 0.83-4.51 [facility] Comment on above: Performed By: #### L 100.0100, L500.2500 ####[facility] [address] [place], [address] Absolute Neut 6.9 X10 3/uL Normal 2.0-7.7 [facility] Comment on above: Performed By: #### L 100.0100, L500.2500 ####[facility] [address] [place], [address] Basophils/100 WBC (Bld) 0.5 % Normal 0-1 [facility] Comment on above: Performed By: #### L 100.0100, L500.2500 ####[facility] [address] [place], [address] Eosinophils/100 WBC (Bld) 0.8 % Normal 0-5 [facility] Comment on above: Performed By: #### L 100.0100, L500.2500 ####[facility] [address] [place], [address] Erythrocyte distribution width (RBC) [Ratio] 12.1 % Normal 11.6-14.6 [facility] Comment on above: Performed By: #### L 100.0100, L500.2500 ####[facility] [address], [address] Hematocrit (Bld) [Volume fraction] 45.1 % Normal 40-54 [facility] Comment on above: Performed By: #### L 100.0100, L500.2500 ####[facility] [address] [place], [address] Hemoglobin (Bld) [Mass/Vol] 15.5 g/dL Normal 13.0-16.5 [facility] Comment on above: Performed By: #### L 100.0100, L500.2500 ####[facility] [address] [place], [address] IG% 0.400 Normal 0.0-0.9 [facility] Comment on above: Result Comment: IG% - Immature Granulocytes (promyelocytes, myelocytes and metamyelocytes) > 1% indicates that a LEFT SHIFT is Present. Performed By: #### L 100.0100, L500.2500 ####[facility] [address] [place], [address] Lymphocytes/100 WBC (Bld) 19.8 % Normal 19-41 [facility] Comment on above: Performed By: #### L 100.0100, L500.2500 ####[facility] [address] [place], [address] MCH (RBC) [Entitic mass] 30.8 pg Normal 27.0-32.0 [facility] Comment on above: Performed By: #### L 100.0100, L500.2500 ####[facility] [address] [place], [address] MCHC (RBC) [Mass/Vol] 34.4 g/dL Normal 32-36 [facility] Comment on above: Performed By: #### L 100.0100, L500.2500 ####[facility] [address] [place], [address] MCV (RBC) [Entitic vol] 89.5 fL Normal 80-94 [facility] Comment on above: Performed By: #### L 100.0100, L500.2500 ####[facility] [address] [place], [address] Monocytes/100 WBC (Bld) 6.0 % Normal 0-10 [facility] Comment on above: Performed By: #### L 100.0100, L500.2500 ####[facility] [address] [place], [address] Neutrophils/100 WBC (Bld) 72.5 % High 47-70 [facility] Comment on above: Performed By: #### L 100.0100, L500.2500 ####[facility] [address] [place], [address] Nucleated RBC (Bld) [#/Vol] 0 10*3/uL Normal 0-5 [facility] Comment on above: Performed By: #### L 100.0100, L500.2500 ####[facility] [address] [place], [address] Platelet mean volume (Bld) [Entitic vol] 13.0 fL High 6.2-12.0 [facility] Comment on above: Performed By: #### L 100.0100, L500.2500 ####[facility] [address] [place], [address] Platelets (Bld) [#/Vol] 219 10*3/uL Normal 150-450 [facility] Comment on above: Performed By: #### L 100.0100, L500.2500 ####[facility] [address] [place], [address] RBC (Bld) [#/Vol] 5.04 10*6/uL Normal 4.6-6.2 [facility] Comment on above: Performed By: #### L 100.0100, L500.2500 ####[facility] [address] [place], [address] RDW SD 39.0 fl Normal 35.1-43.9 [facility] Comment on above: Performed By: #### L 100.0100, L500.2500 ####[facility] [address] [place], [address] WBC (Bld) [#/Vol] 9.5 10*3/uL Normal 4.4-11.0 [facility] Comment on above: Performed By: #### L 100.0100, L500.2500 ####[facility] [address] [facility] [place], [address] Consultation - Surgicalon Consultation - Surgical [facility] Medical Records Department [address] [place] [address] Consultation - Surgical 03/10/24 1448 MR#: [id number] Acct: [id number] Name: BIANCA DELAROSA Rep #: [id number] : 1975 48 From: Maranda Hansen MD PCP: Dr. Humberto Jackson MD Status:[facility] ER Location: ED Assessment Plan Assessment/Plan (1) Perirectal abscess: PLAN: Plan Discussed with patient and his plan for incision and drainage of perirectal abscess with sedation in the ER. Risk include not limited to, bleeding, infection, need for further surgery, recurrent abscesses. Patient and his had no further questions this time. They were agreeable plan. Maranda Hansen M.D. Pager: [phone] [facility] [address] [place] [address], [facility], [address] [place] [address] Office: [phone] HPI Consult Data Date of Consult: 03/10/24 [...] perirectal abscess 2 cm x 4 cm. [facility] Medical History (Updated 03/10/24 @ 14:48 by [...] clubbing, cyanos (more content not included)... Normal [facility] Discharge Instructionon Discharge Instruction [facility] Medical Records Department [address] [place] [address] Instructions for Home/Discharge Instructions 03/10/24 1454 MR#: [id number] Acct: [id number] Name: BIANCA DELAROSA Rep #: [id number] : 1975 48 From: Maranda Hansen MD [...] office for a follow-up appointment on Monday. [phone] Test Results: Test results from this visit [...] - Active Staff] - (Call the office [phone] for a follow-up appointment for Monday.) Print Language: Malagasy 03/10/24 6659 Maranda Hansen MD CC: Dr. Humberto Jackson MD Signed Normal [facility] Emergency Department Summary on 03-10-[address] [facility] Medical Records Department [address] [place] [address] Emergency Department Summary 03/10/24 MR#: [id number] Acct: [id number] Name: BIANCA DELAROSA Rep #: [id number] : 1975 48 From: Mani Blum TITLE I INSTRUCTIONAL ASSISTANT-C PCP: Dr. Humberto Jackson MD Status:REG ER [...] or chills. Patient the pain is severe. [facility] Medical History (Updated 03/10/24 @ [...] Verified 03/10/24 11:16 metoclopramide (From Reglan) Allergy [facility] me Verified 03/10/24 11:16 out sertraline (From [...] left buttock (more content not included)... Normal [facility] Operative Reporton 4 Operative Report [facility] Medical Records Department [address] [place] [address] Operative Report 03/10/24 1451 MR#: [id number] Acct: [id number] Name: BIANCA DELAROSA Rep #: [id number] : 1975 48 From: Maranda Hansen MD [...] Multi Select Codes Integumentary Integumentary CPT Codes: 82783 Drainage of skin abscess 03/12/24 1423 Cosigner Signature (if applicable): cc: Dr. Humberto Jackson MD; Dr. Maranda Hansen MD * Signed Normal [facility] Pelvis WITH IV Contraston Pelvis WITH IV Contrast [facility] [address] [place] [address] [id number] Pelvis WITH IV Contrast MR#: [id number] Acct: [id number] Name: BIANCA DELAROSA Rep #: [id number] : 1975 M 48 From: Vivian ballesteros MD PCP: Dr. Humberto Jackson MD Status: REG ER Study: Pelvis WITH IV Contrast Date of Exam: 03/10/24 Exam# [id number] Ordering Dr: Mani Blum TITLE I INSTRUCTIONAL ASSISTANT-C [id number] HISTORY: Rectal abscess. TECHNIQUE: Helically acquired images [...] CC: ANDERSON Blum; Dr. Humberto Jackson MD Utility Mechanic: Signed Normal [facility] US Thyroid glandon [facility] Radiology Study observation (narrative) [facility] US THYROID/PARATHYROIDon US THYROID/PARATHYROID * * [...] 2 points Echogenicity: Isoechoic, 1 point Shape: Ibyhb-infc-tzoo, 0 points Margin: Smooth, 0 points Echogenic [...] 2 points Echogenicity: Isoechoic, 1 point Shape: Wmfsu-ltok-lvyk, 0 points Margin: Smooth, 0 points Echogenic [...] 1 point Echogenicity: Isoechoic, 1 point Shape: Ifnow-afpg-mrfa, 0 points Margin: Smooth, 0 points Echogenic [...] not consider stability or previous biopsy results. Utility Mechanic: PSCB Transcribe Date/Time: Jan 22 2024 3:09P Dictated by : RONNIE PAN DO This examination was interpreted and the report reviewed and electronically signed by: RONNIE PAN DO on Jan 22 2024 3:20PM EST [id number] Normal [facility] HEMOGLOBIN A1C (POC)on 01-16 HbA1c (Bld) [Mass fraction] 10.5 % Abnormal 4.3 - 5.6 % [facility] CBC W Auto Differential pane l (Bld)on 12-06-2023 Basophils (Bld) [#/Vol] 0.05 10*3/uL <0.11 k/uL [facility] Basophils/100 WBC (Bld) 0.6 % [facility] Differential cell count method Nom (Bld) Auto [facility] Eosinophils (Bld) [#/Vol] 0.12 10*3/uL <0.46 k/uL [facility] Eosinophils/100 WBC (Bld) 1.6 % [facility] Erythrocyte distribution width (RBC) [Ratio] 12.0 % 11.5 - 15.0 % [facility] Hematocrit (Bld) [Volume fraction] 46.1 % 39.0 - 51.0 % [facility] Hemoglobin (Bld) [Mass/Vol] 15.9 g/dL 13.0 - 17.0 g/dL [facility] Immature granulocytes (Bld) [#/Vol] <0.10 k/uL [facility] Immature granulocytes/100 WBC (Bld) 0.3 % [facility] Lymphocytes (Bld) [#/Vol] 3.22 10*3/uL 1.00 - 4.00 k/uL [facility] Lymphocytes/100 WBC (Bld) 41.8 % [facility] MCH (RBC) [Entitic mass] 31.4 pg 26.0 - 34.0 pg [facility] MCHC (RBC) [Mass/Vol] 34.5 g/dL 30.5 - 36.0 g/dL [facility] MCV (RBC) [Entitic vol] 91.1 fL 80.0 - 100.0 fL [facility] Monocytes (Bld) [#/Vol] 0.47 10*3/uL <0.87 k/uL [facility] Monocytes/100 WBC (Bld) 6.1 % [facility] Neutrophils (Bld) [#/Vol] 3.83 10*3/uL 1.45 - 7.50 k/uL [facility] Neutrophils/100 WBC (Bld) 49.6 % [facility] Nucleated RBC (Bld) [#/Vol] <0.01 k/uL [facility] Nucleated RBC/100 WBC (Bld) [Ratio] 0.0 /100 WBC [facility] Platelet mean volume (Bld) [Entitic vol] 12.8 fL High 9.0 - 12.7 fL [facility] Platelets (Bld) [#/Vol] 281 10*3/uL 150 - 400 k/uL [facility] RBC (Bld) [#/Vol] 5.06 10*6/uL 4.20 - 6.0 0 m/uL [facility] WBC (Bld) [#/Vol] 7.71 10*3/uL 3.70 - 11.00 k/uL [facility] Comprehensive metabolic 2000 panelon 12-06-2023 Albumin [Mass/Vol] 4.9 g/dL 3.9 - 4.9 g/dL [facility] ALP [Catalytic activity/Vol] 129 U/L High 38 - 113 U/L [facility] ALT [Catalytic activity/Vol] 17 U/L 10 - 54 U/L [facility] Anion gap [Moles/Vol] 11 mmol/L 9 - 18 mmol/L [facility] AST [Catalytic activity/Vol] 19 U/L 14 - 40 U/L [facility] Bilirubin [Mass/Vol] 0.2 mg/dL 0.2 - 1 .3 mg/dL [facility] Calcium [Mass/Vol] 10.2 mg/dL 8.5 - 10. 2 mg/dL [facility] Chloride [Moles/Vol] 104 mmol/L 97 - 10 5 mmol/L [facility] CO2 [Moles/Vol] 25 mmol/L 22 - 30 mmol/L [facility] Creatinine [Mass/Vol] 0.79 mg/dL 0.73 - 1.22 mg/dL [facility] Estimated Glomerular Filtration Rate 110 mL/min/1.73m >=60 mL/min/1.73 m [facility] Glucose [Mass/Vol] 178 mg/dL High 74 - 99 mg/dL [facility] Potassium [Moles/Vol] 4.8 mmol/L 3.7 - 5.1 mmol/L [facility] Protein [Mass/Vol] 7.1 g/dL 6.3 - 8.0 g/dL [facility] Sodium [Moles/Vol] 140 mmol/L 136 - 144 mmol/L [facility] Urea nitrogen [Mass/Vol] 12 mg/dL 9 - 24 mg/dL [facility] LIPID PANEL, NONFASTINGon Cholesterol [Mass/Vol] 200 mg/dL High <200 mg/dL [facility] HDL Cholesterol, Nonfasting 29 mg/dL Low >39 mg/dL [facility] LDL Cholesterol, Nonfasting 106 mg/dL High <100 mg/dL [facility] LDL/HDL Ratio, Nonfasting 3.66 mg/dL High <2.54 mg/dL [facility] Non HDL Cholesterol, Nonfasting 171 mg/dL High <130 mg/dL [facility] Total Chol/HDL Ratio, Nonfasting 6.90 mg/dL High <5.10 mg/dL [facility] Triglycerides, Nonfasting 325 mg/dL High <150 mg/dL [facility] VLDL Cholesterol, Nonfasting 65 mg/dL High <30 mg/dL [facility] MAGNESIUM [facility] 12-06-2023 Magnesium [Mass/Vol] 2.3 mg/dL 1.7 - 2 .3 mg/dL [facility] TSH [facility] 12-06-2023 TSH Qn 1.740 m[IU]/L 0.270 - 4.200 mIU/L [facility] Urinalysis complete panel (U )on 12-06-2023 Bacteria LM.HPF (Urine sed) [#/Area] Negative Negative /HPF [facility] Bilirubin Ql (U) Negative Negative [facility] Clarity (Unsp spec) Clear Clear [facility] Color (U) Yellow Yellow [facility] Epithelial cells LM.HPF (Urine sed) [#/Area] None Seen [facility] Glucose Test strip (U) [Mass/Vol] Negative Negative [facility] Hemoglobin Ql (U) Negative Negative [facility] Hyaline casts (Urine sed) [#/Area] 1-3 /LPF Abnormal 0 /LPF [facility] Ketones Ql (U) Negative Negative [facility] Leukocyte esterase Test strip Ql (U) Negative Negative [facility] Nitrite Ql (U) Negative Negative [facility] pH (U) 5.5 [pH] <8.5 [facility] Protein (U) [Mass/Vol] Negative Negative [facility] RBC LM.HPF (Urine sed) [#/Area] 0-2 /HPF 0-2 /HPF [facility] Specific gravity (U) [Rel density] 1.024 1.005 - 1.030 [facility] Urobilinogen Ql (U) 0.2 EU/dL 0.2-1.0 EU/dL [facility] WBC LM.HPF (Urine sed) [#/Area] 0-5 /HPF 0-5 /HPF [facility] VITAMIN B12 BLOODon 12-06-19 24 Cobalamin (Vitamin B12) [Mass/Vol] 418 pg/mL 232 - 1,245 pg/mL [facility] XR FOOT RIGHT 3+ VIEWSon XR FOOT RIGHT 3+ VIEWS Interpreted By: Doretha Bueno, STUDY: XR FOOT RIGHT 3+ VIEWS; ; 10/27/2023 9:58 am INDICATION: Signs/Symptoms:medial aspect pain. COMPARISON: None. ACCESSION NUMBER(S): [id number] ORDERING CLINICIAN: STANTON PETERS FINDINGS: AP, oblique and lateral views were obtained. There is no fracture or dislocation. No focal bone destruction is noted. Joint spaces appear intact. IMPRESSION: No acute osseous abnormality MACRO: None Signed by: Doretha Bueno 10/27/2023 10:58 AM Dictation workstation: [id number] [facility] XR Foot - right 3 Viewson No acute osseous abnormality MACRO: None Signed by: Doretha Bueno 10/27/2023 10:58 AM Dictation workstation: [id number] Interpreted By: Doretha Burrell, STUDY: XR FOOT RIGHT 3+ VIEWS; ; 10/27/2023 9:58 am INDICATION: Signs/Symptoms:medial aspect pain. COMPARISON: None. ACCESSION NUMBER(S): [id number] ORDERING CLINICIAN: STANTON PETERS FINDINGS: AP, oblique and lateral views were obtained. There is no fracture or dislocation. No focal bone destruction is noted. Joint spaces appear intact. [facility] Doretha Bueno MD - 10/27/2023 Interpreted By: Doretha Bueno STUDY: XR FOOT RIGHT 3+ VIEWS; ; 10/27/2023 9:58 am INDICATION: Signs/Symptoms:medial aspect pain. COMPARISON: None. ACCESSION NUMBER(S): [id number] ORDERING CLINICIAN: STANTON PETERS FINDINGS: AP, oblique and lateral views were obtained. There is no fracture or dislocation. No focal bone destruction is noted. Joint spaces appear intact. IMPRESSION: No acute osseous abnormality MACRO: None Signed by: Doretha Bueno 10/27/2023 10:58 AM Dictation workstation: [id number] [facility] Work Phone: Radiology Study observation (narrative) [facility] Work Phone: XR Foot - right 3 ViewsOrder ed By: Doretha Bueno on 10-27-2023 [facility] Work Phone: Surgery Visit Reporton 04-25 Surgery Visit Report [facility] [address] [place], [place] [id number] OFFICE VISIT Date of Service: 04/25/23 MR#: [id number] Acct: [id number] Name: BIANCA DELAROSA Rep #: [id number] : 1975 Provider: Dr. Prince ramos MD Age/Sex: 47/M Location: [facility] Status: Signed Intake Vital Signs 04/14/23 16:13 Height 6 ft 2 in Intake Visit Reasons: ABSCESS 04/14 Chief Complaint: recheck tressa-rectal [employer] Required: No Is patient in pain?: No [...] Global Post Op Diagnoses Perirectal abscess K61.[facility] Medical History (Updated 04/25/23 @ 17:07 by [...] Operative cultur (more content not included)... Normal [facility] Culture, Anaerobic Any Sourc venacnio 04-18-2023 CUAN UNK UNK LEFT PERIRECTAL ABSCESS No anaerobic bacteria isolated. Normal [facility] Comment on above: Performed By: #### M 100.3000, M100.2000, M100.4001 #### [facility] Laboratory [address] [place], [address] Wound Cultureon 04-16-2023 WC UNK UNK LEFT PERIRECTAL ABSCESS Klebsiella pneumoniae sp pneum Amount Growth 2+ Klebsiella pneumoniae sp pneum: REACTION Ampicillin Islt YASMINE R Ampicillin+Sulbac Islt YASMINE <=2 S ceFAZolin Islt YAMSINE <=4 S Cefepime Islt YASMINE <=0.12 S cefTRIAXone Islt YASMINE <=0.25 S Ciprofloxacin Islt YASMINE <=0.25 S Ertapenem Islt YASMINE <=0.12 S B-Lactamase Extended Susc Islt NEG Gentamicin Islt YASMINE <=1 S Imipenem Islt YASMINE <=0.25 S levoFLOXacin Islt YASMINE <=0.12 S Pip+Tazo Islt YASMINE <=4 S Tobramycin Islt YASMINE <=1 S TMP SMX Islt YASMINE <=20 S Normal [facility] Comment on above: Performed By: #### M 100.3000, M100.2000, M100.4001 #### [facility] [address] [place], [place], [id number] Absolute lymphocyte countOrd ered By: Prince Villanueva on 04-15-2023 Lymphocytes Auto (Unsp spec) [#/Vol] 1.50 10*3/uL 0.83-4.51 [facility] Basophil percentageOrdered B y: Prince Villanueva on 04-15-2023 Basophils/100 WBC (Bld) 0.5 % 0-1 [facility] Eosinophils/100 WBC (Bld) 1.5 % 0-5 [facility] Neutrophils (Bld) [#/Vol] 5.1 10*3/uL 2.0-7.7 [facility] Neutrophils/100 WBC (Bld) 69.4 % 47-70 [facility] WBC (Bld) [#/Vol] 7.3 10*3/uL 4.4-11.0 [facility] Bedside Glucoseon 04-15-2023 FINGERSTICK GLU 353 mg/dL High 74-106 [facility] Comment on above: Result Comment: KAUSHAL GEMENT OF PATIENT CARE PER NURSING PROTOCOL Performed By: #### L 501.080 #### [facility] [address] [place], [place], [id number] (433 FINGERSTICK GLU 332 mg/dL High 74-106 [facility] Comment on above: Result Comment: KAUSHAL GEMENT OF PATIENT CARE PER NURSING PROTOCOL Performed By: #### L 501.080 ####[facility] [address] [place], [address] Blood erythrocytes count (nu mber/volume)Ordered By: Prince Villanueva on 04-15-2023 RBC (Bld) [#/Vol] 4.26 10*6/uL 4.6-6.2 [facility] Blood hemoglobin measurement (mass/volume)Ordered By: Prince Villanueva on 04-15-2023 Hemoglobin (Bld) [Mass/Vol] 13.5 g/dL 13.0-16.5 [facility] Blood lymphocytes/100 leukoc ytesOrdered By: Prince Villanueva on 04-15-2023 Lymphocytes/100 WBC (Bld) 20.5 % 19-41 [facility] Blood monocytes/100 leukocyt esOrdered By: Prince Villanueva on 04-15-2023 Monocytes/100 WBC (Bld) 7.8 % 0-10 [facility] Blood platelet mean volumeOr dered By: Prince Villanueva on 04-15-2023 Platelet mean volume (Bld) [Entitic vol] 13.2 fL 6.2-12.0 [facility] CBC W/Diff, Automatedon 07-0 Absolute Lymph 1.50 X10 3/uL Normal 0.83-4.51 [facility] Comment on above: Performed By: #### L 100.0100 ####[facility] [address] [place], [address] Absolute Neut 5.1 X10 3/uL Normal 2.0-7.7 [facility] Comment on above: Performed By: #### L 100.0100 ####[facility] [address] [place], [address] Basophils/100 WBC (Bld) 0.5 % Normal 0-1 [facility] Comment on above: Performed By: #### L 100.0100 ####[facility] [address] [place], [address] Eosinophils/100 WBC (Bld) 1.5 % Normal 0-5 [facility] Comment on above: Performed By: #### L 100.0100 ####[facility] [address] [place], [address] Erythrocyte distribution width (RBC) [Ratio] 11.8 % Normal 11.6-14.6 [facility] Comment on above: Performed By: #### L 100.0100 ####[facility] [address] [place], [address] Hematocrit (Bld) [Volume fraction] 39.4 % Low 40-54 [facility] Comment on above: Performed By: #### L 100.0100 ####[facility] [address] [place], [address] Hemoglobin (Bld) [Mass/Vol] 13.5 g/dL Normal 13.0-16.5 [facility] Comment on above: Performed By: #### L 100.0100 ####[facility] [address] [place], [address] IG% 0.300 Normal 0.0-0.9 [facility] Comment on above: Result Comment: IG% - Immature Granulocytes (promyelocytes, myelocytes and metamyelocytes) > 1% indicates that a LEFT SHIFT is Present. Performed By: #### L 100.0100 ####[facility] [address] [place], [address] Lymphocytes/100 WBC (Bld) 20.5 % Normal 19-41 [facility] Comment on above: Performed By: #### L 100.0100 ####[facility] [address] [place], [address] MCH (RBC) [Entitic mass] 31.7 pg Normal 27.0-32.0 [facility] Comment on above: Performed By: #### L 100.0100 ####[facility] [address] [place], [address] MCHC (RBC) [Mass/Vol] 34.3 g/dL Normal 32-36 [facility] Comment on above: Performed By: #### L 100.0100 ####[facility] [address] [place], [address] MCV (RBC) [Entitic vol] 92.5 fL Normal 80-94 [facility] Comment on above: Performed By: #### L 100.0100 ####[facility] [address] [place], [address] Monocytes/100 WBC (Bld) 7.8 % Normal 0-10 [facility] Comment on above: Performed By: #### L 100.0100 ####[facility] [address] [place], [address] Neutrophils/100 WBC (Bld) 69.4 % Normal 47-70 [facility] Comment on above: Performed By: #### L 100.0100 ####[facility] [address] [place], [address] Nucleated RBC (Bld) [#/Vol] 0 10*3/uL Normal 0-5 [facility] Comment on above: Performed By: #### L 100.0100 ####[facility] [address] [place], [address] Platelet mean volume (Bld) [Entitic vol] 13.2 fL High 6.2-12.0 [facility] Comment on above: Performed By: #### L 100.0100 ####[facility] [address] [place], [address] Platelets (Bld) [#/Vol] 172 10*3/uL Normal 150-450 [facility] Comment on above: Performed By: #### L 100.0100 ####[facility] [address] [place], [address] RBC (Bld) [#/Vol] 4.26 10*6/uL Low 4.6-6.2 [facility] Comment on above: Performed By: #### L 100.0100 ####[facility] [address] [place], [address] RDW SD 39.8 fl Normal 35.1-43.9 [facility] Comment on above: Performed By: #### L 100.0100 ####[facility] [address] [place], [address] WBC (Bld) [#/Vol] 7.3 10*3/uL Normal 4.4-11.0 [facility] Comment on above: Performed By: #### L 100.0100 ####[facility] [address] [place], [address] Determination of erythrocyte mean corpuscular volume (MCV)Ordered By: Prince Villanueva on 04-15-2023 MCV (RBC) [Entitic vol] 92.5 fL 80-94 [facility] Discharge Instructionon Discharge Instruction [facility] Medical Records Department [address] [place] [address] Instructions for Home/Discharge Instructions 04/15/23 1055 MR#: [id number] Acct: [id number] Name: BIANCA DELAROSA Rep #: [id number] : 1975 47 From: Prince Villanueva MD [...] CC: Dr. Humberto Jackson MD Signed Normal [facility] Glucose Glucometer (BldC) [M ass/Vol]Ordered By: Prince Villanueva on 04-15-2023 Glucose [Mass/Vol] 353 mg/dL 74-106 [facility] Comment on above: MANAGEMENT OF PATIEN T CARE PER NURSING PROTOCOL Gram Stainon 04-15-2023 GS UNK UNK LEFT PERIRECTAL ABSCESS Gram Stain 3+ Red Blood Cells Rare White Blood Cells 1+ Gram negative rods Normal [facility] Comment on above: Performed By: #### M 100.3000, M100.2000, M100.4001 #### [facility] [address] [place], [address] Hematocrit Auto (Bld) [Volum e fraction]Ordered By: Prince Villanueva on 04-15-2023 Hematocrit (Bld) [Volume fraction] 39.4 % 40-54 [facility] Laboratory - Hematology and Cell countsOrdered By: Prince Villanueva on 04-15-2023 Erythrocyte distribution width (RBC) [Entitic vol] 39.8 fL 35.1-43.9 [facility] Erythrocyte distribution width (RBC) [Ratio] 11.8 % 11.6-14.6 [facility] Immature granulocytes/100 WBC (Bld) 0.300 % 0.0-0.9 [facility] Comment on above: IG% - Immature Granu locytes (promyelocytes, myelocytes and metamyelocytes) > 1% indicates that a LEFT SHIFT is Present. MCH (RBC) [Entitic mass] 31.7 pg 27.0-32.0 [facility] Nucleated RBC/100 WBC (Bld) [Ratio] 0 % 0-5 [facility] MCHC Auto (RBC) [Mass/Vol]Or dered By: Prince Villanueva on 04-15-2023 MCHC (RBC) [Mass/Vol] 34.3 g/dL 32-36 [facility] Platelets bldOrdered By: Yasmine Villanueva on 04-15-2023 Platelets (Bld) [#/Vol] 172 10*3/uL 150-450 [facility] Absolute lymphocyte countOrd ered By: Jil Scott on 04-14-2023 Lymphocytes Auto (Unsp spec) [#/Vol] 1.89 10*3/uL 0.83-4.51 [facility] Basic Metabolic Profile (BMP )on 04-14-2023 BUN/CRE 11.3 RATIO Normal 10-20 [facility] Comment on above: Performed By: #### L 100.0100, L500.2500 #### [facility] [address] [place], [address] CA,Total 8.9 mg/dL Normal 8.5-10.1 [facility] Comment on above: Performed By: #### L 100.0100, L500.2500 #### [facility] [address] [place], [address] Chloride [Moles/Vol] 102 mmol/L Normal 98-107 [facility] Comment on above: Performed By: #### L 100.0100, L500.2500 #### [facility] [address] [place], [address] CO2 [Moles/Vol] 23.0 mmol/L Normal 21.0-32.0 [facility] Comment on above: Performed By: #### L 100.0100, L500.2500 #### [facility] [address] [place], [address] Creatinine [Mass/Vol] 0.79 mg/dL Normal 0.70-1.30 [facility] Comment on above: Result Comment: The validity of the calculated GFR GFRAA in patients over 70 years has not been determined. Clinical correlation is essential. Performed By: #### L 100.0100, L500.2500 #### [facility] [address] [place], [address] ECRCL 132.95 ml/min Normal [facility] Comment on above: Performed By: #### L 100.0100, L500.2500 #### [facility] [address] [place], [address] EST GFR - AA 134 mL/min Normal >60 [facility] Comment on above: Result Comment: Afri can Citizen Of [place] GFR Calc Performed By: #### L 100.0100, L500.2500 #### [facility] [address] [place], [address] GAP 10 Normal 5-15 [facility] Comment on above: Performed By: #### L 100.0100, L500.2500 #### [facility] [address] [place], [address] GFR/1.73 sq M.predicted among non-blacks MDRD (S/P/Bld) [Vol rate/Area] 111 mL/min/{1.73_m2} Normal >60 [facility] Comment on above: Result Comment: Non- GFR Calc Performed By: #### L 100.0100, L500.2500 #### [facility] [address] [place], [address] Glucose [Mass/Vol] 300 mg/dL High 74-106 [facility] Comment on above: Result Comment: Gluc ose result greater than or equal to 200 mg/dL suggests DIABETES MELLITUS per A.D.A. criteria. Performed By: #### L 100.0100, L500.2500 #### [facility] [address] [place], [address] Potassium [Moles/Vol] 3.7 mmol/L Normal 3.5-5.1 [facility] Comment on above: Performed By: #### L 100.0100, L500.2500 #### [facility] [address] [place], [address] Sodium [Moles/Vol] 135 mmol/L Low 136-145 [facility] Comment on above: Performed By: #### L 100.0100, L500.2500 #### [facility] [address] [place], [address] Urea nitrogen [Mass/Vol] 9 mg/dL Normal 7-18 [facility] Comment on above: Performed By: #### L 100.0100, L500.2500 #### [facility] [address] [place], [address] Basophil percentageOrdered B y: Jil Scott on 04-14-2023 Basophils/100 WBC (Bld) 0.5 % 0-1 [facility] Chloride [Moles/Vol] 102 mmol/L 98-107 [facility] Eosinophils/100 WBC (Bld) 0.6 % 0-5 [facility] Glucose [Mass/Vol] 300 mg/dL 74-106 [facility] Comment on above: Glucose result great er than or equal to 200 mg/dLsuggests DIABETES MELLITUS per A.D.A. criteria. Neutrophils (Bld) [#/Vol] 7.2 10*3/uL 2.0-7.7 [facility] Neutrophils/100 WBC (Bld) 73.5 % 47-70 [facility] Potassium [Moles/Vol] 3.7 mmol/L 3.5-5.1 [facility] Sodium [Moles/Vol] 135 mmol/L 136-145 [facility] WBC (Bld) [#/Vol] 9.8 10*3/uL 4.4-11.0 [facility] Bedside Glucoseon 04-14-2023 FINGERSTICK GLU 404 mg/dL High 74-106 [facility] Comment on above: Result Comment: KAUSHAL GEMENT OF PATIENT CARE PER NURSING PROTOCOL Performed By: #### L 501.080 #### [facility] [address] [place], [place], [address] FINGERSTICK GLU 252 mg/dL High 74-[address] [place] [address] Comment on above: Result Comment: KAUSHAL GEMENT OF PATIENT CARE PER NURSING PROTOCOL Performed By: #### L 501.080 ####[facility] [address] [place], [address] Blood erythrocytes count (nu mber/volume)Ordered By: Jil Scott on 04-14-2023 RBC (Bld) [#/Vol] 4.74 10*6/uL 4.6-6.2 [facility] Blood hemoglobin measurement (mass/volume)Ordered By: Jil Scott on 04-14-2023 Hemoglobin (Bld) [Mass/Vol] 15.2 g/dL 13.0-16.5 [facility] Blood lymphocytes/100 leukoc ytesOrdered By: Jil Scott on 04-14-2023 Lymphocytes/100 WBC (Bld) 19.3 % 19-41 [facility] Blood monocytes/100 leukocyt esOrdered By: Jil Scott on 04-14-2023 Monocytes/100 WBC (Bld) 5.8 % 0-10 [facility] Blood platelet mean volumeOr dered By: Jil Scott on 04-14-2023 Platelet mean volume (Bld) [Entitic vol] 12.4 fL 6.2-12.0 [facility] CBC W/Diff, Automatedon Absolute Lymph 1.89 X10 3/uL Normal 0.83-4.51 [facility] Comment on above: Performed By: #### L 100.0100, L500.2500 #### [facility] [facility] [address] [place], [address] Absolute Neut 7.2 X10 3/uL Normal 2.0-7.7 [facility] Comment on above: Performed By: #### L 100.0100, L500.2500 #### [facility] [address] [place], [address] Basophils/100 WBC (Bld) 0.5 % Normal 0-1 [facility] Comment on above: Performed By: #### L 100.0100, L500.2500 #### [facility] [address] [place], [address] Eosinophils/100 WBC (Bld) 0.6 % Normal 0-5 [facility] Comment on above: Performed By: #### L 100.0100, L500.2500 #### [facility] [address] [place], [address] Erythrocyte distribution width (RBC) [Ratio] 11.6 % Normal 11.6-14.6 [facility] Comment on above: Performed By: #### L 100.0100, L500.2500 #### [facility] [address] [place], [address] Hematocrit (Bld) [Volume fraction] 42.2 % Normal 40-54 [facility] Comment on above: Performed By: #### L 100.0100, L500.2500 #### [facility] [address] [place], [address] Hemoglobin (Bld) [Mass/Vol] 15.2 g/dL Normal 13.0-16.5 [facility] Comment on above: Performed By: #### L 100.0100, L500.2500 #### [facility] [address] [place], [address] IG% 0.300 Normal 0.0-0.9 [facility] Comment on above: Result Comment: IG% - Immature Granulocytes (promyelocytes, myelocytes and metamyelocytes) > 1% indicates that a LEFT SHIFT is Present. Performed By: #### L 100.0100, L500.2500 #### [facility] [address] [place], [address] Lymphocytes/100 WBC (Bld) 19.3 % Normal 19-41 [facility] Comment on above: Performed By: #### L 100.0100, L500.2500 #### [facility] [address] [place], [address] MCH (RBC) [Entitic mass] 32.1 pg High 27.0-32.0 [facility] Comment on above: Performed By: #### L 100.0100, L500.2500 #### [facility] [address] [place], [address] MCHC (RBC) [Mass/Vol] 36.0 g/dL Normal 32-36 [facility] Comment on above: Performed By: #### L 100.0100, L500.2500 #### [facility] [address] [place], [address] MCV (RBC) [Entitic vol] 89.0 fL Normal 80-94 [facility] Comment on above: Performed By: #### L 100.0100, L500.2500 #### [facility] [address] [place], [address] Monocytes/100 WBC (Bld) 5.8 % Normal 0-10 [facility] Comment on above: Performed By: #### L 100.0100, L500.2500 #### [facility] [address] [place], [address] Neutrophils/100 WBC (Bld) 73.5 % High 47-70 [facility] Comment on above: Performed By: #### L 100.0100, L500.2500 #### [facility] [address] [place], [address] Nucleated RBC (Bld) [#/Vol] 0 10*3/uL Normal 0-5 [facility] Comment on above: Performed By: #### L 100.0100, L500.2500 #### [facility] [address] [place], [address] Platelet mean volume (Bld) [Entitic vol] 12.4 fL High 6.2-12.0 [facility] Comment on above: Performed By: #### L 100.0100, L500.2500 #### [facility] [address] [place], [address] Platelets (Bld) [#/Vol] 203 10*3/uL Normal 150-450 [facility] Comment on above: Performed By: #### L 100.0100, L500.2500 #### [facility] [address] [place], [address] RBC (Bld) [#/Vol] 4.74 10*6/uL Normal 4.6-6.2 [facility] Comment on above: Performed By: #### L 100.0100, L500.2500 #### [facility] [address] [place], [address] RDW SD 37.4 fl Normal 35.1-43.9 [facility] Comment on above: Performed By: #### L 100.0100, L500.2500 #### [facility] [address] [place], [address] WBC (Bld) [#/Vol] 9.8 10*3/uL Normal 4.4-11.0 [facility] Comment on above: Performed By: #### L 100.0100, L500.2500 #### [facility] [address] [place], [address] Determination of erythrocyte mean corpuscular volume (MCV)Ordered By: Jil Scott on 04-14-2023 MCV (RBC) [Entitic vol] 89.0 fL 80-94 [facility] Emergency Department Summary on 04-14-2023 Emergency Department Summary [facility] Medical Records Department [address] [facility] [place] [address] Emergency Department Summary 04/14/23 MR#: [id number] Acct: [id number] Name: BIANCA DELAROSA Rep #: [id number] : 1975 47 From: Jil CLAY PCP: Dr. Humberto Jackson MD Status:[facility] Location: [address] History of Present Illness Chief Complaint: [...] week because his arm sensor fell off. [facility] Medical History (Updated 04/14/23 @ [...] Pressure M (more content not included)... Normal [facility] Gram stain for investigation of transfusion reactionOrdered By: Prince Villanueva on 04-14-2023 Microscopic observation Gram stain Nom (Unsp spec) [facility] Hematocrit Auto (Bld) [Volum e fraction]Ordered By: Jil Scott on 04-14-2023 Hematocrit (Bld) [Volume fraction] 42.2 % 40-54 [facility] - Chemistry and C hemistry - challengeOrdered By: Jil Scott on 04-14-2023 CO2 [Moles/Vol] 23.0 mmol/L 21.0-32.0 [facility] Urea nitrogen/Creatinine [Mass ratio] 11.3 mg/mg 10-20 [facility] - Hematology and Cell countsOrdered By: Jil Scott on 04-14-2023 Erythrocyte distribution width (RBC) [Entitic vol] 37.4 fL 35.1-43.9 [facility] Erythrocyte distribution width (RBC) [Ratio] 11.6 % 11.6-14.6 [facility] Immature granulocytes/100 WBC (Bld) 0.300 % 0.0-0.9 [facility] Comment on above: IG% - Immature Granu locytes (promyelocytes, myelocytes and metamyelocytes) > 1% indicates that a LEFT SHIFT is Present. MCH (RBC) [Entitic mass] 32.1 pg 27.0-32.0 [facility] Nucleated RBC/100 WBC (Bld) [Ratio] 0 % 0-5 [facility] MCHC Auto (RBC) [Mass/Vol]Or dered By: Jil Scott on 04-14-2023 MCHC (RBC) [Mass/Vol] 36.0 g/dL 32-36 [facility] No Panel InformationOrdered By: Jil Scott on 04-14-2023 Estimated Creatinine Clearance Calc 132.95 ml/min [facility] Estimated GFR (MDRD) Amer 134 mL/min >60 [facility] Comment on above: GFR Calc Estimated GFR (MDRD) Non-Af Amer 111 mL/min >60 [facility] Comment on above: Non- GFR Calc Operative Reporton 3 Operative Report [facility] Medical Records Department [address] [place] [address] Operative Report 04/14/232038 MR#: [id number] Acct: [id number] Name: BIANCA DELAROSA Rep #: [id number] : 1975 47 From: Prince Villanueva MD PCP: Dr. Humberto Jackson MD Status:[facility] Location: [place] [address] Report of Operation Date of Procedure: 04/14/23 [...] Mechan Device Prophylaxis: SCD's Procedures Digestive 40xxx-49xxx: 73955 Incision of rectal abscess 04/15/23 1216 Cosigner Signature (if applicable): CC: Dr. Humberto Jackson MD; Dr. Prince Villanueva MD Signed Normal [facility] Pelvis WITH IV Contraston Pelvis WITH IV Contrast [facility] Imaging Services [address] [place] [address] Pelvis WITH IV Contrast MR#: [id number] Acct: [id number] Name: BIANCA DELAROSA Rep #: [id number] : 1975 M 47 From: Jaime Blanton PCP: Dr. Humberto Jackson MD Status: [facility] Study: Pelvis WITH IV Contrast Date of Exam: 04/14/23 Exam# [id number] Ordering Dr: Jil Scott STUDY: CT Pelvis [...] at 17:11 EDT , CC: Dr. Humberto Jackson MD; DANNA Welch Utility Mechanic: Signed Normal [facility] Platelets bldOrdered By: Arielle Scott on 04-14-2023 Platelets (Bld) [#/Vol] 203 10*3/uL 150-450 [facility] Serum or plasma calcium festus urement (mass/volume)Ordered By: Jil Scott on 04-14-2023 Calcium [Mass/Vol] 8.9 mg/dL 8.5-10.1 [facility] Serum or plasma creatinine m easurement (mass/volume)Ordered By: Jil Scott on 04-14-2023 Creatinine [Mass/Vol] 0.79 mg/dL 0.70-1.30 [facility] Comment on above: The validity of the calculated GFR & GFRAA in patients over 70 years has not been determined. Clinical correlation is essential. Serum or plasma urea nitroge n measurement (mass/volume)Ordered By: Jil Scott on 04-14-2023 Urea nitrogen [Mass/Vol] 9 mg/dL 7-18 [facility] Thin prep Papanicolaou smear with manual screeningOrdered By: Jil Scott on 04-14-2023 Thin prep Papanicolaou smear with manual screening 10 5-15 [facility] HEMOGLOBIN A1C (POC)on 01-27 HbA1c (Bld) [Mass fraction] 11.0 % Abnormal 4.2 - 5.6 % [facility] TOX SCREEN ROUT URon 023 Amphetamines Confirm (U) [Mass/Vol] Negative Negative [facility] Barbiturates Urine Negative Negative [facility] Benzodiazepines Urine Negative Negative [facility] Cannabinoids, Urine Negative Negative [facility] Cocaine Ql (U) Negative Negative [facility] Ethanol (U) [Mass/Vol] <11 mg/dL [facility] Opiates Screen Ql (U) Negative Negative [facility] oxyCODONE cutoff Screen (U) [Mass/Vol] Negative Negative [facility] Phencyclidine Ql (U) Negative [facility] COLONOSCOPY SCREENINGon 08-10 [facility] GLUCOSE, BLOOD (POC)on 08-30 Glucose [Mass/Vol] 240 mg/dL Abnormal 74 - 99 mg/dL [facility] HEPB S AB IMMUNITYon 022 HBV surface Ab Qn (S) 9.36 mIU/mL Low >=12.0 0 mIU/mL [facility] CBC W Auto Differential pane l (Bld)on 06-04-2022 Abs Immature Gran 0.03 k/uL <0.10 k/uL [facility] Basophils (Bld) [#/Vol] 0.06 10*3/uL <0.11 k/uL [facility] Basophils/100 WBC (Bld) 0.8 % [facility] Differential cell count method Nom (Bld) Auto [facility] Eosinophils (Bld) [#/Vol] 0.11 10*3/uL <0.46 k/uL [facility] Eosinophils/100 WBC (Bld) 1.4 % [facility] Erythrocyte distribution width (RBC) [Ratio] 11.9 % 11.5 - 15.0 % [facility] Hematocrit (Bld) [Volume fraction] 46.7 % 39.0 - 51.0 % [facility] Hemoglobin (Bld) [Mass/Vol] 16.0 g/dL 13.0 - 17.0 g/dL [facility] Immature Gran % 0.4 % [facility] Lymphocytes (Bld) [#/Vol] 3.03 10*3/uL 1.00 - 4.00 k/uL [facility] Lymphocytes/100 WBC (Bld) 39.7 % [facility] MCH (RBC) [Entitic mass] 31.3 pg 26.0 - 34.0 pg [facility] MCHC (RBC) [Mass/Vol] 34.3 g/dL 30.5 - 36.0 g/dL [facility] MCV (RBC) [Entitic vol] 91.2 fL 80.0 - 100.0 fL [facility] Monocytes (Bld) [#/Vol] 0.48 10*3/uL <0.87 k/uL [facility] Monocytes/100 WBC (Bld) 6.3 % [facility] Neutrophils (Bld) [#/Vol] 3.93 10*3/uL 1.45 - 7.50 k/uL [facility] Neutrophils/100 WBC (Bld) 51.4 % [facility] Nucleated RBC (Bld) [#/Vol] <0.01 k/uL [facility] Nucleated RBC/100 WBC (Bld) [Ratio] 0.0 /100 WBC [facility] Platelet mean volume (Bld) [Entitic vol] 13.2 fL High 9.0 - 12.7 fL [facility] Platelets (Bld) [#/Vol] 241 10*3/uL 150 - 400 k/uL [facility] RBC (Bld) [#/Vol] 5.12 10*6/uL 4.20 - 6.0 0 m/uL [facility] WBC (Bld) [#/Vol] 7.64 10*3/uL 3.70 - 11.00 k/uL [facility] MAGNESIUM BLDon 06-04-2022 Magnesium [Mass/Vol] 2.0 mg/dL 1.7 - 2 .3 mg/dL [facility] Urinalysis complete panel (U )on 06-04-2022 Bilirubin Ql (U) Negative Negative [facility] Clarity (Unsp spec) Turbid Abnormal Clear [facility] Color (U) Yellow Yellow [facility] Glucose Test strip (U) [Mass/Vol] 2+ Abnormal Negative [facility] Hemoglobin Ql (U) Negative Negative [facility] Ketones Ql (U) Negative Negative [facility] Leukocyte esterase Test strip Ql (U) Negative Negative [facility] Nitrite Ql (U) Negative Negative [facility] pH (U) 5.0 [pH] 5.0 - 8.0 [facility] Protein (U) [Mass/Vol] 1+ Abnormal Negative [facility] RBC LM.HPF (Urine sed) [#/Area] 0-3 /HPF 0-3 /HPF [facility] Specific gravity (U) [Rel density] 1.029 1.005 - 1.030 [facility] Urobilinogen Ql (U) Negative Negative [facility] WBC LM.HPF (Urine sed) [#/Area] 0-5 /HPF 0-5 /HPF [facility] VITAMIN B12 BLOODon 06-04-20 Cobalamin (Vitamin B12) [Mass/Vol] 418 pg/mL 232 - 1,245 pg/mL [facility] HEMOGLOBIN A1C (POC)on 03-04 HbA1c (Bld) [Mass fraction] 10.5 % Abnormal 4.2 - 5.6 % [facility] XR Chest PA and Lateralon IMPRESSION: No acute radiographic abnormality. Utility Mechanic: GORGE Transcribe Date/Time: Oct 15 2021 8:39A Dictated by : DAT FERNANDES MD This examination was interpreted and the report reviewed and electronically signed by: DAT FERNANDES MD on Oct 15 2021 8:39AM [facility] DIVISION OF RADIOLOGY * * *Final [...] soft tissues: Unremarkable. DIVISION OF RADIOLOGY Provider, [facility] - 10/15/2021 * * *Final Report* * [...] Unremarkable. IMPRESSION IMPRESSION: No acute radiographic abnormality. Utility Mechanic[facility] Transcribe Date/Time: Oct 15 2021 8:39A Dictated by : DAT FERNANDES MD This examination was interpreted and the report reviewed and electronically signed by: DAT FERNANDES MD on Oct 15 2021 8:39AM EST [facility] Radiology Study observation (narrative) [facility] XR Chest PA and LateralOrder ed By: [facility] Provider on 10-15-2021 [facility] XR Knee - bilateral 4 Viewso n 10-20-2020 IMPRESSION: No acute osseous findings. Bilateral mild patellofemoral degenerative changes. Minimal bilateral tibiofemoral degenerative changes. No significant change. Utility Mechanic: [facility] Transcribe Date/Time: Oct 20 2020 11:00A Dictated by : GIULIA LICEA MD This examination was interpreted and the report reviewed and electronically signed by: GIULIA LICEA MD on Oct 20 2020 11:03AM [facility] DIVISION OF RADIOLOGY * * *Final [...] knee effusions. DIVISION OF RADIOLOGY Provider, [facility] - 10/20/2020 * * *Final Report* * [...] bilateral tibiofemoral degenerative changes. No significant change. 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 This test is used for clinical [...] or clinically deteriorating. Performed By: #### L [id number] #### [facility] (DEFAULT) [address] [place] [address] CHEST 1 VIEWon 10-20-2018 CHEST 1 VIEW Performed at [facility] APPROVED BY: RAIMUNDO RIZVI MD EXAMINATION: CHEST RADIOGRAPH (PORTABLE SINGLE VIEW AP) Exam Date/Time: 10/20/2018 5:12 PMClinical History: Chest pain M: [id number]: None available RESULT: Lines, tubes, and devices: None. Lungs and pleura: No airspace consolidation, lung mass, pleural effusion or pneumothorax. Cardiomediastinal silhouette: Stable cardiomediastinal silhouette. IMPRESSION:1. No acute radiographic abnormality. Normal [facility] CPKon 10-20-2018 CPK 136 U/L Normal 39-308 [facility] Comment on above: Performed By: #### L HEPA ####[address] [address] Comprehensive Panelon 2018 Albumin mass conc 4.1 g/dL Normal 3.4-5.0 [facility] Comment on above: Performed By: #### L HEPA ####[address] [address] ALP enzyme act/vol 147 U/L High 46-116 [facility] Comment on above: Performed By: #### L HEPA ####[address] [address] ALT-SGPT Blood 37 U/L Normal 14-63 [facility] Comment on above: Performed By: #### L HEPA ####[facility] [place], [place] [address] Anion gap 3 molar conc 16 mmol/L Normal 8-20 [facility] Comment on above: Performed By: #### L HEPA ####[address] [address] AST-SGOT Blood 35 U/L Normal 15-37 [facility] Comment on above: Performed By: #### L HEPA ####[place] [address] Bilirubin Ql (U) 0.3 mg/dL Normal 0.2-1.0 [facility] Comment on above: Performed By: #### L HEPA ####[place] [address] Calcium mass conc 9.3 mg/dL Normal 8.5-10.1 [facility] Comment on above: Performed By: #### L HEPA ####[place] [address] Chloride molar conc 100 mmol/L Normal 98-107 [facility] Comment on above: Performed By: #### L HEPA ####[place] [address] CO2 molar conc 24 mmol/L Normal 21-32 [facility] Comment on above: Performed By: #### L HEPA ####[address] [address] Creatinine mass conc 0.80 mg/dL Normal 0.67-1.17 [facility] Comment on above: Performed By: #### L HEPA ####[address] [address] Glucose mass conc 219 mg/dL High 70-99 [facility] Comment on above: Performed By: #### L HEPA ####[place] [address] Potassium molar conc 3.6 mmol/L Normal 3.5-5.1 [facility] Comment on above: Performed By: #### L HEPA ####[place] [address] Protein mass conc 7.1 g/dL Normal 6.4-8.2 [facility] Comment on above: Performed By: #### L HEPA ####[address] [address] Sodium molar conc 136 mmol/L Normal 136-145 [facility] Comment on above: Performed By: #### L HEPA ####[place] [address] Urea nitrogen mass conc (Bld) 15 mg/dL Normal 7-25 [facility] Comment on above: Performed By: #### L HEPA ####[place] [address] Urea nitrogen/Creatinine mass ratio 19 mg/mg Normal 10-20 [facility] Comment on above: Performed By: #### L HEPA ####[place] [address] Glucose Meteron 10-20-2018 Glucose mass conc 239 mg/dL High 70-99 [facility] Comment on above: Result Comment: KENNEY Ballesteros [place] [address] Performed By: #### L GLMT ####[place] [address] Hemogram/Diffon 10-20-2018 Abs. Baso 0.05 thou/cmm Normal 0.00-0.08 [facility] Comment on above: Performed By: #### L CBCD ####[place] [address] Abs. Cooper 0.62 thou/cmm Normal 0.20-1.00 [facility] Comment on above: Performed By: #### L CBCD ####[place] [address] Abs. Neut (ANC) 5.10 thou/cmm Normal 3.00-5.67 [facility] Comment on above: Performed By: #### L CBCD ####[place] [address] Basophils/100 WBC Auto (Bld) 0.6 % Normal [facility] Comment on above: Performed By: #### L CBCD ####[address] [address] Eosinophils Auto #/vol (Bld) 0.15 thou/cmm Normal 0.00-0.41 [facility] Comment on above: Performed By: #### L CBCD ####[address] [address] Eosinophils/100 WBC Auto (Bld) 1.7 % Normal [facility] Comment on above: Performed By: #### L CBCD ####[address] [address] Erythrocyte distribution width Auto Ratio (RBC) 12.0 % Normal 11.5-15.9 [facility] Comment on above: Performed By: #### L CBCD ####[address] [address] Hematocrit Auto Volume Fraction (Bld) 41.1 % Low 42.0-52.0 [facility] Comment on above: Performed By: #### L CBCD ####[address] [address] Hemoglobin mass conc (Bld) 14.4 g/dL Normal 14.0-18.0 [facility] Comment on above: Performed By: #### L CBCD ####[address] [address] Lymphocytes Auto #/vol (Bld) 3.08 thou/cmm Normal 1.50-3.65 [facility] Comment on above: Performed By: #### L CBCD ####[address] [address] Lymphocytes/100 WBC Auto (Bld) 34.2 % Normal [facility] Comment on above: Performed By: #### L CBCD ####[address] [address] MCH Auto Entitic mass (RBC) 31.3 pg High 27.0-31.0 [facility] Comment on above: Performed By: #### L CBCD ####[place] [address] MCHC Auto mass conc (RBC) 35.0 % Normal 32.0-36.0 [facility] Comment on above: Performed By: #### L CBCD ####[place] [address] MCV Auto Entitic volume (RBC) 89.3 fL Normal 80.0-94.0 [facility] Comment on above: Performed By: #### L CBCD ####[place] [address] Monocytes/100 WBC Auto (Bld) 6.9 % Normal [facility] Comment on above: Performed By: #### L CBCD ####[place] [address] Platelet mean volume Auto Entitic volume (Bld) 12.0 fL High 7.1-10.5 [facility] Comment on above: Performed By: #### L CBCD ####[place] [address] Platelets Auto #/vol (Bld) 250 thou/cmm Normal 150-400 [facility] Comment on above: Performed By: #### L CBCD ####[place] [address] RBC Auto #/vol (Bld) 4.60 mil/cmm Normal 4.60-6.20 [facility] Comment on above: Performed By: #### L CBCD ####[place] [address] Seg Neutrophil 56.6 % Normal [facility] Comment on above: Performed By: #### L CBCD ####[place] [address] WBC Auto #/vol (Bld) 9.0 thou/cmm Normal 4.8-10.8 [facility] Comment on above: Performed By: #### L CBCD ####[place] [address] MDRD eGFRon 10-20-2018 GFR/1.73 sq M predicted among non-blacks MDRD vol rate/area (S/P/Bld) mL/min/{1.73_m2} Normal >60mL/min/1 .73m2 [facility] Comment on above: Result Comment: If t he patient is , multiply the result by 1.210. Performed By: #### L HEPA ####[place] [address] Macroscopic Urinalysison Appearance Nom (U) CLEAR Normal [facility] Comment on above: Performed By: #### L HEPA ####[place] [address] Bilirubin Urine Negative Normal Negative [facility] Comment on above: Performed By: #### L HEPA ####[place] [address] Color Nom (U) YELLOW Normal [facility] Comment on above: Performed By: #### L HEPA ####[place] [address] Glucose Ql (U) Negative Normal Negative [facility] Comment on above: Performed By: #### L HEPA ####[place] [address] Hemoglobin,Urine Negative Normal Negative [facility] Comment on above: Performed By: #### L HEPA ####[place] [address] Ketone Urine Negative Normal Negative [facility] Comment on above: Performed By: #### L HEPA ####[place] [address] Leukocytes Esterase Negative Normal Negative [facility] Comment on above: Performed By: #### L HEPA ####[place] [address] Nitrites Urine Negative Normal Negative [facility] Comment on above: Performed By: #### L HEPA ####[place] [address] pH Test strip (U) 6.0 [pH] Normal 5.0-8.0 [facility] Comment on above: Performed By: #### L HEPA ####[facility] [place] [address] Protein Urine Negative Normal Negative [facility] Comment on above: Performed By: #### L HEPA ####[place] [address] Specific [place], Ur 1.020 Normal 1.005-1.030 [facility] Comment on above: Performed By: #### L HEPA ####[place] [address] Urobilinogen,Ur 0.2 EU/dL Normal 0.0-1.0 [facility] Comment on above: Performed By: #### L HEPA ####[place] [address] Troponin Ion 10-20-2018 Troponin I.cardiac mass conc ng/mL Normal <=0.07 [facility] Comment on above: Performed By: #### L HEPA ####[place] [address] Troponin I.cardiac mass conc ng/mL Normal <=0.07 [facility] Comment on above: Performed By: #### L HEPA ####[place] [address] Free Thyroxineon 09-04-2018 T4 free mass conc 0.69 ng/dL Normal 0.44-1.61 [facility] Comment on above: Performed By: #### L FT4 ####[place] [address] TSHon 09-04-2018 Thyrotropin Qn 1.36 uIU/mL Normal 0.34-4.82 [facility] Comment on above: Performed By: #### L TSH ####[place] [address] ANKLE 3V AP/LAT/OBL RIGHTon 07-14-2018 Protein mass conc Performed at [facility] APPROVED BY: Humberto Pinedo MD Right ankle, AP, oblique and lateral: CLINICAL INDICATION: Right ankle injury. Right ankle pain. COMPARISON: None. The ankle mortise is intact. There is no acute fracture. There is a small plantar calcaneal enthesophyte. There is lateral malleolar soft tissue swelling. IMPRESSION: No acute osseous abnormality. Normal [facility] Hemoglobin A1Con 02-21-2018 Glucose mass conc 137 mg/dL Normal [facility] Comment on above: Performed By: #### L A1C ####[address] [address] Hemoglobin A1c/Hemoglobin.total mass fraction (Bld) 6.4 % High 4.5-6.2 [facility] Comment on above: Performed By: #### L A1C ####[address] [address] Free Thyroxineon 02-20-2018 T4 free mass conc 0.75 ng/dL Normal 0.44-1.61 [facility] Comment on above: Performed By: #### L FT4 ####[place] [address] Hepatic Panelon 02-20-2018 Albumin mass conc 4.0 g/dL Normal 3.4-5.0 [facility] Comment on above: Performed By: #### L HEPA ####[place] [address] Albumin/Globulin mass ratio 1.2 {ratio} Normal 0.9-2.4 [facility] Comment on above: Performed By: #### L HEPA ####[address] [address] ALP enzyme act/vol 108 U/L Normal 46-116 [facility] Comment on above: Performed By: #### L HEPA ####[address] [address] ALT-SGPT Blood 22 U/L Normal 14-63 [facility] Comment on above: Performed By: #### L HEPA ####[place] [address] AST-SGOT Blood 20 U/L Normal 15-37 [facility] Comment on above: Performed By: #### L HEPA ####[place] [address] Bilirubin Ql (U) 0.6 mg/dL Normal 0.2-1.0 [facility] Comment on above: Performed By: #### L HEPA ####[place] [address] Bilirubin.direct mass conc mg/dL Normal 0.00-0.20 [facility] Comment on above: Performed By: #### L HEPA ####[place] [address] Bilirubin.indirect mass conc (Body fld) 0.5 mg/dL Normal 0.0-0.7 [facility] Comment on above: Performed By: #### L HEPA ####[place] [address] Protein mass conc 7.4 g/dL Normal 6.4-8.2 [facility] Comment on above: Performed By: #### L HEPA ####[place] [address] Lipid Profileon 02-20-2018 Cholesterol in HDL mass conc 30 mg/dL Normal >40 [facility] Comment on above: Performed By: #### L LIPD ####[place] [address] Cholesterol in LDL mass conc 168 mg/dL High 0-150 [facility] Comment on above: Performed By: #### L LIPD ####[place] [address] Cholesterol mass conc 230 mg/dL High 0-199 [facility] Comment on above: Performed By: #### L LIPD ####[place] [address] Cholesterol.total/Cho lesterol in HDL mass ratio 7.7 {ratio} High 2.1-7.3 [facility] Comment on above: Performed By: #### L LIPD ####[place] [address] Risk Factor 7.7 Normal [facility] Comment on above: Result Comment: Card iac [...] >23.4 >11.0 Performed By: #### L LIPD ####[place] [address] Triglyceride Blood 158 mg/dL High 0-149 [facility] Comment on above: Performed By: #### L LIPD ####[place] [address] TSHon 02-20-2018 Thyrotropin Qn 1.23 uIU/mL Normal 0.34-4.82 [facility] Comment on above: Performed By: #### L TSH ####[place] [address] ABG, Bedside (Resp Dept)on 0 10-10-2017 Base Excess -5.0 mmol/L Low -3.0-3.0 [facility] Comment on above: Performed By: #### C /UR ####[address] [address] Bicarbonate (HCO3) 19.2 mmol/L Low 21.0-25.0 [facility] Comment on above: Performed By: #### C /UR ####[address] [address] CO2 20.0 mmol/L Low 23.0-27.0 [facility] Comment on above: Performed By: #### C /UR ####[address] [address] CO2 29.1 mm[Hg] Low 35.0-45.0 [facility] [employer] Comment on above: Performed By: #### C /UR ####[place] [address] [place] [address] O2 saturation 94.0 % Low 95.0-100.0 [facility] Comment on above: Performed By: #### C /UR ####[place] [address] [place] [address] Oxygen in arterial blood 66.0 mm[Hg] Low 80.0-100.0 [facility] [employer] Comment on above: Performed By: #### C /UR ####[place] [address] [place] [address] pH of blood 7.428 [pH] Normal 7.350-7.450 [facility] [employer] Comment on above: Performed By: #### C /UR ####[place] [address] [place] [address] Specimen Type arterial Normal [facility] Comment on above: Performed By: #### C /UR ####[place] [address] [place] [address] CR Chest PA/LATon 10-09-2017 CR Chest PA/LAT Patient Name: BIANCA HERRERA Diagnostic Radiology Exam Date/Time 10/09/2017 21:34:42 EST Exam CR Chest PA/LAT Ordering Physician MD MIRTA, [facility] Accession Number [id number] CPT4 Codes 45985 () Reason For Exam cough , fever, [...] R Transcribed Date and Time: 10/09/2017 9:35 [facility] CULTURE BLOODon 10-09-2017 CULTURE BLOOD Specimen Source Comment:[facility] Patient name: BIANCA DELAROSA Dany RaeRMickyN.: [id number] : 1975 Age: 41 Sex: M Ord. Physician: NELLY ORTIZ Location: [facility] Copy to: NELLY ORTIZ DISCHARGED: 10/09/17 Adm. Date: 10/09/17 MICROBIOLOGYORDER#: [id number] COLLECTED: 10/09/17 20:49SOURCE: Blood (Right -antecub) RECEIVED: 10/09/17 21:09 OE Genesis Alonzo E N T S Specim en Source Comment:BloodCULTURE BLOOD FINAL 10/15/17 11:0610/15/17No growth at 5 days. [facility] Comment on above: Performed By: #### C /UR ####[address] [address] CULTURE BLOOD (Two)on 2017 CULTURE BLOOD (Two) Specimen Source Comment:[facility] Patient name: BIANCA DELAROSA Dany GoldsmithN.: [id number] : 1975 Age: 41 Sex: M Ord. Physician: NELLY ORTIZ Location: [facility] Copy to: NELLY ORTIZ DISCHARGED: 10/09/17 Adm. Date: 10/09/17 MICROBIOLOGYORDER#: [id number] COLLECTED: 10/09/17 20:49SOURCE: Blood (Right -antecub) RECEIVED: 10/09/17 21:07 EVETTE Alonzo E N T S Specim en Source Comment:BloodCULTURE BLOOD (Two) FINAL 10/15/17 11:0610/15/17No growth at 5 days. [facility] Comment on above: Performed By: #### C /UR ####[address] [address] CULTURE URINEon 10-09-2017 CULTURE URINE Specimen Source Comment:Urine, clean catch [facility] Patient name: BIANCA DELAROSA MMickyR.N.: [id number] : 1975 Age: 41 Sex: M Ord. Physician: NELLY ORTIZ Location: [address] [place] [address] Copy to: NELLY ORTIZ DISCHARGED: 10/09/17 Adm. Date: 10/09/17 MICROBIOLOGYORDER#: [id number] COLLECTED: 10/09/17 21:46SOURCE: Urine RECEIVED: 10/09/17 21:46 OE C O M M E N T S Specim en Source Comment:Urine, clean catchCULTURE URINE FINAL 10/11/17 07:No growth (<1,000 CFU/ml). [facility] Comment on above: Performed By: #### C /UR ####[address] [address] Comp Metabolic Panelon 10-09 Alanine aminotransferase (ALT) 29 U/L Normal 12-78 [facility] Comment on above: Performed By: #### H EMDF, CMP3, LACT3 ####[place] [address] [place] [address] Albumin 3.9 g/dL Normal 3.4-5.0 [facility] Comment on above: Performed By: #### H EMDF, CMP3, LACT3 ####[place] [address] [place] [address] Alkaline phosphatase (ALP) 97 U/L Normal 45-117 [facility] Comment on above: Performed By: #### H EMDF, CMP3, LACT3 ####[place] [address] [place] [address] Anion gap 13 mmol/L Normal [facility] Comment on above: Performed By: #### H EMDF, CMP3, LACT3 ####[place] [address] [place] [address] Aspartate aminotransferase (AST) 25 U/L Normal 15-37 [facility] Comment on above: Performed By: #### H EMDF, CMP3, LACT3 ####[place] [address] [place] [address] Bilirubin (total) 0.5 mg/dL Normal 0.2-1.0 [facility] Comment on above: Performed By: #### H EMDF, CMP3, LACT3 ####[place] [address] [place] [address] Calcium 8.6 mg/dL Normal 8.2-10.1 [facility] Comment on above: Performed By: #### H EMDF, CMP3, LACT3 ####[place] [address] [place] [address] Chloride 99 mmol/L Normal 98-109 [facility] Comment on above: Performed By: #### H EMDF, CMP3, LACT3 ####[place] [address] [place] [address] CO2 22 mmol/L Normal 21-32 [facility] Comment on above: Performed By: #### H EMDF, CMP3, LACT3 ####[place] [address] [place] [address] Creatinine 1.25 mg/dL Normal 0.55-1.40 [facility] Comment on above: Performed By: #### H EMDF, CMP3, LACT3 ####[place] [address] [place] [address] eGFR (black) mL/min/{1.73_m2} Normal >60 [facility] Comment on above: Performed By: #### H EMDF, CMP3, LACT3 ####[place] [address] [place] [address] eGFR (non-black) mL/min/{1.73_m2} Normal >60 [facility] Comment on above: Result Comment: Sour ce- MDRD equation with creatinine calibration to IDMS(NKDEP)eGFR not recommended for drug dose adjustment Performed By: #### H EMDF, CMP3, LACT3 ####[address] [address] Glucose mass conc 160 mg/dL High 70-100 [facility] Comment on above: Result Comment: . Performed By: #### H EMDF, CMP3, LACT3 ####[address] [address] Potassium molar conc 3.8 mmol/L Normal 3.5-5.1 [facility] Comment on above: Performed By: #### H EMDF, CMP3, LACT3 ####[address] [address] Protein 7.1 g/dL Normal 6.4-8.2 [facility] Comment on above: Performed By: #### H EMDF, CMP3, LACT3 ####[address] [address] Sodium 134 mmol/L Low 135-145 [facility] Comment on above: Performed By: #### H EMDF, CMP3, LACT3 ####[address] [address] Urea nitrogen 13 mg/dL Normal 7-25 [facility] Comment on above: Performed By: #### H EMDF, CMP3, LACT3 ####[address] [address] Hemogram w/ Autodiffon 10-09 Abs Baso Cnt 0.0 10*3/uL Normal 0.0-0.2 [facility] Comment on above: Performed By: #### H EMDF, CMP3, LACT3 ####[address] [address] Basophils/100 WBC Auto (Bld) 0.5 % Normal [facility] Comment on above: Performed By: #### H EMDF, CMP3, LACT3 ####[address] [address] Eosinophils 0.1 10*3/uL Normal 0.0-0.5 [facility] Comment on above: Performed By: #### H EMDF, CMP3, LACT3 ####[facility] ClinicJicuyt1948 [facility] [place] [address] Eosinophils/100 leukocytes 0.7 % Normal [facility] Comment on above: Performed By: #### H EMDF, CMP3, LACT3 ####[place] [address] [facility] [place] [address] Erythrocyte distribution width Auto Ratio (RBC) 11.5 % Normal 11.5-14.5 [facility] Comment on above: Performed By: #### H EMDF, CMP3, LACT3 ####[place] [address] [facility] [place] [address] Erythrocytes (RBC) 4.78 10*6/uL Normal 4.40-5.90 [facility] Comment on above: Performed By: #### H EMDF, CMP3, LACT3 ####[facility] ClinicXrwuos6262 [facility] [place] [address] Granulocytes/100 WBC (Bld) 84.3 % Normal [facility] Comment on above: Performed By: #### H EMDF, CMP3, LACT3 ####[facility] ClinicJzucte7953 [facility] [place] [address] Hematocrit (HCT) 43.6 % Normal 40.0-52.0 [facility] Comment on above: Performed By: #### H EMDF, CMP3, LACT3 ####[place] [address] [facility] [place] [address] Hemoglobin mass conc (Bld) 14.7 g/dL Normal 13.0-18.0 [facility] Comment on above: Performed By: #### H EMDF, CMP3, LACT3 ####[place] [address] [facility] [place] [address] Lymphocytes 0.8 10*3/uL Low 1.0-4.3 [facility] Comment on above: Performed By: #### H EMDF, CMP3, LACT3 ####[place] [address] [facility] [place] [address] Lymphocytes/100 leukocytes 8.2 % Normal [facility] Comment on above: Performed By: #### H EMDF, CMP3, LACT3 ####[place] [id number] [facility] [place] [address] MCH 30.8 pg Normal 26.0-34.0 [facility] Comment on above: Performed By: #### H EMDF, CMP3, LACT3 ####[facility] ClinicZhhdsp8850 [facility] [place] [address] MCHC mass conc (RBC) 33.8 % Normal 32.0-36.0 [facility] Comment on above: Performed By: #### H EMDF, CMP3, LACT3 ####[facility] ClinicWxukyx0738 [facility] [place] [address] MCV 91.2 fL Normal 80.0-98.0 [facility] Comment on above: Performed By: #### H EMDF, CMP3, LACT3 ####[place] [id number] [facility] [place] [address] Monocytes 0.6 10*3/uL Normal 0.0-0.8 [facility] Comment on above: Performed By: #### H EMDF, CMP3, LACT3 ####[place] [address] [facility] [place] [address] Monocytes/100 leukocytes 6.3 % Normal [facility] Comment on above: Performed By: #### H EMDF, CMP3, LACT3 ####[place] [address] [facility] [place] [address] Neutrophils 8.2 10*3/uL High 1.8-7.0 [facility] Comment on above: Performed By: #### H EMDF, CMP3, LACT3 ####[place] [id number] [facility] [place] [address] Platelet mean volume (PMV) 10.4 fL Normal 7.4-10.4 [facility] Comment on above: Performed By: #### H EMDF, CMP3, LACT3 ####[place] [id number] [facility] [place] [address] Platelets 205 10*3/uL Normal 140-440 [facility] Comment on above: Performed By: #### H EMDF, CMP3, LACT3 ####[facility] ClinicTsgdcw5859 [facility] [place] [address] WBC (Leukocytes) 9.7 10*3/uL Normal 3.6-10.7 [facility] Comment on above: Performed By: #### H EMDF, CMP3, LACT3 ####[place] [address] [place] [address] Lactic Acidon 10-09-2017 Lactate 1.8 mmol/L Normal 0.4-2.0 [facility] Comment on above: Performed By: #### H EMDF, CMP3, LACT3 ####[place] [address] [place] [address] Protimeon 10-09-2017 aPTT 30.6 s High 20.0-30.5 [facility] Comment on above: Result Comment: NOTE : The therapeutic time for Heparin anticoagulation,based on Xa activity inhibition, is an APTT of 46-80seconds. Performed By: #### P T/AP ####[address] [address] INR Coag RelTime (PPP) 1.03 {INR} Normal 0.90-1.10 [facility] Comment on above: Result Comment: Vahe mmended [...] preventMyocardial Infarction Performed By: #### P T/AP ####[address] [address] Prothrombin time (PT) Coag time (PPP) 10.8 s Normal 9.0-12.0 [facility] Comment on above: Result Comment: . Performed By: #### P T/AP ####[place] [address] [place] [address] Rapid Flu Aon 10-09-2017 Rapid Influenza A Not Detected Normal Not Detected [facility] Comment on above: Performed By: #### R PFAB ####[address] [address] Rapid Influenza B Not Detected Normal Not Detected [facility] Comment on above: Performed By: #### R PFAB ####[address] [place] [address] Urinalysis,Macroon 8 Bilirubin (direct) Negative Normal Negative [facility] Comment on above: Performed By: #### U AMAC, UAMIC ####[place] [address] [place] [address] Ketone,Urine Negative Normal Negative [facility] Comment on above: Performed By: #### U AMAC, UAMIC ####[place] [address] [place] [address] Occult Blood,Ur Negative Normal Negative [facility] Comment on above: Performed By: #### U AMAC, UAMIC ####[place] [address] [place] [address] Specific [place],Urine 1.015 Normal 1.005-1.030 [facility] Comment on above: Performed By: #### U AMAC, UAMIC ####[place] [address] [place] [address] Total Protein,Urine Trace (15) Normal Negative [facility] Comment on above: Performed By: #### U AMAC, UAMIC ####[place] [address] [place] [address] Urine, appearance Sl. Cloudy Normal Clear [facility] Comment on above: Performed By: #### U AMAC, UAMIC ####[place] [address] [place] [address] Urine, color Yellow Normal Lt. Yellow [facility] Comment on above: Performed By: #### U AMAC, UAMIC ####[place] [address] [place] [address] Urine, glucose presence NEG (Normal) Normal Negative [facility] Comment on above: Performed By: #### U AMAC, UAMIC ####[place] [address] [place] [address] Urine, nitrite presence Negative Normal Negative [facility] Comment on above: Performed By: #### U AMAC, UAMIC ####[place] [address] [place] [address] Urine, pH 8.0 [pH] Normal 5.0-8.0 [facility] Comment on above: Performed By: #### U AMAC, UAMIC ####[place] [address] [place] [address] Urine, urobilinogen 1.0 mg/dL Normal 0-1 [facility] Comment on above: Performed By: #### U AMAC, UAMIC ####[place] [address] [place] [address] WBC (Leukocytes) Trace Normal Negative [facility] Comment on above: Performed By: #### U AMAC, UAMIC ####[place] [address] [place] [address] Urinalysis,Microscopicon Urine, bacteria in sediment Moderate (6-50) Normal Negative [facility] Comment on above: Performed By: #### U AMAC, UAMIC ####[place] [address] [place] [address] Urine, epithelial cells in sediment 0-2 Normal 3-5 [facility] Comment on above: Performed By: #### U AMAC, UAMIC ####[place] [address] [place] [address] Urine, erythrocytes in sediment by area Negative Normal 0-2 [facility] Comment on above: Performed By: #### U AMAC, UAMIC ####[place] [address] [place] [address] Urine, leukocytes in sedmiment 0-2 Normal 0-5 [facility] Comment on above: Performed By: #### U AMAC, UAMIC ####[place] [address] [place] [address] CULTURE URINEon 05-03-2017 CULTURE URINE Specimen Source Comment:Urine, clean catch [facility] Patient name: BIANCA DELAROSA Dany MMickyRMickyN.: [id number] : 1975 Age: 41 Sex: M Ord. Physician: ALEJANDRO CALDERON Location: [address] [place] [address] Copy to: ALEJANDRO CALDERON DISCHARGED: 05/03/17 Adm. Date: 05/03/17 MICROBIOLOGYORDER#: [id number] COLLECTED: 05/03/17 14:19SOURCE: Urine RECEIVED: 05/03/17 14:23 OE C O M M E N T S Specim en Source Comment:Urine, clean catchCULTURE URINE FINAL 05/04/17 17:25005/04/17No growth (<1,000 CFU/ml). Normal [facility] Comment on above: Performed By: #### C /UR ####[address] [place] [address] Urinalysis,Macroon 7 Bilirubin (direct) Negative Normal Negative [facility] Comment on above: Performed By: #### U AMAC ####[facility] [place] [address] Ketone,Urine Negative Normal Negative [facility] Comment on above: Performed By: #### U AMAC ####[facility] ClinicRdejde2564 [facility] [place] [address] Occult Blood,Ur Negative Normal Negative [facility] Comment on above: Performed By: #### U AMAC ####[facility] ClinicGgjaqm9616 [place] [address] Specific [place],Urine 1.010 Normal 1.005-1.030 [facility] Comment on above: Performed By: #### U AMAC ####[facility] ClinicAxrwly7487 [place] [address] Total Protein,Urine Negative Normal Negative [facility] Comment on above: Performed By: #### U AMAC ####[place] [address] [place] [address] Urine, appearance Clear Normal Clear [facility] Comment on above: Performed By: #### U AMAC ####[place] [address] [place] [address] Urine, color Yellow Normal Lt. Yellow [facility] Comment on above: Performed By: #### U AMAC ####[place] Eime[address] [place] [address] Urine, glucose presence NEG (Normal) Normal Negative [facility] Comment on above: Performed By: #### U AMAC ####[place] Pac[address] [place] [address] Urine, nitrite presence Negative Normal Negative [facility] Comment on above: Performed By: #### U AMAC ####[place] Y[address]oc[address] [facility] [place] [address] Urine, pH 8.0 [pH] Normal 5.0-8.0 [facility] Comment on above: Performed By: #### U AMAC ####[place] [address]ib[address] [facility] [place] [address] Urine, urobilinogen Normal (0.2) Normal 0-1 [facility] Comment on above: Performed By: #### U AMAC ####[place] Dq[address]ts[address] [facility] [place] [address] WBC (Leukocytes) Negative Normal Negative [facility] Comment on above: Performed By: #### U AMAC ####[facility] ClinicZubcwf1077 [facility] [place] [address] Vital Signs Date Time Vital Sign Value Performing Clinician Facility 03-10-2025 08:26-0400 Body mass index (BMI) [Ratio] 35.49 kg/m2 Nelda Acostair [employer]OX TENDER.MECHANICAL MANUFACTURING TECHNICIAN Work Phone: [facility] 03-10-2025 08:26-0400 Body weight 125.37 kg Nelda Acostair WEIGH BOX TENDER.MECHANICAL MANUFACTURING TECHNICIAN Work Phone: [facility] 03-10-2025 08:26-0400 Diastolic blood pressure 74 mm[Hg] Nelda Braydon WEIGH BOX TENDER.MECHANICAL MANUFACTURING TECHNICIAN Work Phone: [facility] 03-10-2025 08:26-0400 Heart rate 98 /min Nelda Braydon WEIGH BOX TENDER.MECHANICAL MANUFACTURING TECHNICIAN Work Phone: [facility] 03-10-2025 08:26-0400 Respiratory rate 16 /min Nelda Braydon WEIGH BOX TENDER.MECHANICAL MANUFACTURING TECHNICIAN Work Phone: [facility] 03-10-2025 08:26-0400 SaO2% (BldA) [Mass fraction] 96 % Nelda Braydon WEIGH BOX TENDER.MECHANICAL MANUFACTURING TECHNICIAN Work Phone: [facility] 03-10-2025 08:26-0400 Systolic blood pressure 114 mm[Hg] Nelda Braydon WEIGH BOX TENDER.MECHANICAL MANUFACTURING TECHNICIAN Work Phone: [facility] 03-06-2025 06:52-0400 Body mass index (BMI) [Ratio] 35.69 kg/m2 Kenyatta Castaneda PA-C Work Phone: [facility] 03-06-2025 06:52-0400 Body temperature 97 [degF] Kenyatta Castaneda PA-C Work Phone: [facility] 03-06-2025 06:52-0400 Body weight 126.1 kg Kenyatta Castaneda PA-C Work Phone: [facility] 03-06-2025 06:52-0400 Diastolic blood pressure 82 mm[Hg] Kenyatta Castaneda PA-C Work Phone: [facility] 03-06-2025 06:52-0400 Heart rate 94 /min Kenyatta Castaneda PA-C Work Phone: [facility] 03-06-2025 06:52-0400 Respiratory rate 18 /min Kenyatta Castaneda PA-C Work Phone: [facility] 03-06-2025 06:52-0400 SaO2% (BldA) [Mass fraction] 94 % Kenyatta Castaneda PA-C Work Phone: [facility] 03-06-2025 06:52-0400 Systolic blood pressure 126 mm[Hg] Kenyatta Castaneda PA-C Work Phone: [facility] 02-06-2025 07:55-0400 Body height 188 cm Lissy Bowman MD Work Phone: [facility] 02-06-2025 07:55-0400 Body mass index (BMI) [Ratio] 36.98 kg/m2 Lissy Bowman MD Work Phone: [facility] 02-06-2025 07:55-0400 Body weight 130.64 kg Lissy Bowman MD Work Phone: [facility] 02-06-2025 07:55-0400 Diastolic blood pressure 84 mm[Hg] Lissy Bowman MD Work Phone: [facility] 02-06-2025 07:55-0400 Heart rate 100 /min Lissy Bowman MD Work Phone: [facility] 02-06-2025 07:55-0400 SaO2% (BldA) [Mass fraction] 96 % Lissy Bowman MD Work Phone: [facility] 02-06-2025 07:55-0400 Systolic blood pressure 125 mm[Hg] Lissy Bowman MD Work Phone: [facility] 01-21-2025 11:14-0400 Body mass index (BMI) [Ratio] 36.72 kg/m2 Humberto Jackson MD Work Phone: [facility] 01-21-2025 11:14-0400 Body temperature 97.81 [degF] Humberto Jackson MD Work Phone: [facility] 01-21-2025 11:14-0400 Body weight 129.73 kg Humberto Jackson MD Work Phone: [facility] 01-21-2025 11:14-0400 Diastolic blood pressure 88 mm[Hg] Humberto Jackson MD Work Phone: [facility] 01-21-2025 11:14-0400 Heart rate 88 /min Humberto Jackson MD Work Phone: [facility] 01-21-2025 11:14-0400 Respiratory rate 16 /min Humberto Jackson MD Work Phone: [facility] 01-21-2025 11:14-0400 SaO2% (BldA) [Mass fraction] 95 % Humberto Jackson MD Work Phone: [facility] 01-21-2025 11:14-0400 Systolic blood pressure 124 mm[Hg] Humberto Jackson MD Work Phone: [facility] 01-06-2025 14:22-0400 Body height 188 cm Ja Mckeon MD Work Phone: [facility] 01-06-2025 14:22-0400 Body mass index (BMI) [Ratio] 36.29 kg/m2 Ja Mckeon MD Work Phone: [facility] 01-06-2025 14:22-0400 Body weight 128.2 kg Ja Mckeon MD Work Phone: [facility] 01-06-2025 14:22-0400 Diastolic blood pressure 86 mm[Hg] Ja Mckeon MD Work Phone: [facility] 01-06-2025 14:22-0400 Heart rate 80 /min Ja Mckeon MD Work Phone: [facility] 01-06-2025 14:22-0400 Respiratory rate 16 /min Ja Mckeon MD Work Phone: [facility] 01-06-2025 14:22-0400 SaO2% (BldA) [Mass fraction] 96 % Ja Mckeon MD Work Phone: [facility] 01-06-2025 14:22-0400 Systolic blood pressure 126 mm[Hg] Ja Mckeon MD Work Phone: [facility] 12-30-2024 08:04-0400 Body height 188 cm Humberto Jackson MD Work Phone: [facility] 12-30-2024 08:04-0400 Body mass index (BMI) [Ratio] 36.08 kg/m2 Humberto Jackson MD Work Phone: [facility] 12-30-2024 08:04-0400 Body weight 127.46 kg Humberto Jackson MD Work Phone: [facility] 12-30-2024 08:04-0400 Diastolic blood pressure 74 mm[Hg] Humberto Jackson MD Work Phone: [facility] 12-30-2024 08:04-0400 Heart rate 88 /min Humberto Jackson MD Work Phone: [facility] 12-30-2024 08:04-0400 Respiratory rate 18 /min Humberto Jackson MD Work Phone: [facility] 12-30-2024 08:04-0400 SaO2% (BldA) [Mass fraction] 92 % Humberto Jackson MD Work Phone: [facility] Comment on above: walking 12-30-2024 08:04-0400 Systolic blood pressure 118 mm[Hg] Humberto Jackson MD Work Phone: [facility] 12-20-2024 09:41-0400 Body mass index (BMI) [Ratio] 36.83 kg/m2 Humberto Jackson MD Work Phone: [facility] 12-20-2024 09:41-0400 Body weight 130.18 kg Humberto Jackson MD Work Phone: [facility] 12-20-2024 09:41-0400 Diastolic blood pressure 84 mm[Hg] Humberto Jackson MD Work Phone: [facility] 12-20-2024 09:41-0400 Heart rate 88 /min Humberto Jackson MD Work Phone: [facility] 12-20-2024 09:41-0400 Respiratory rate 16 /min Humberto Jackson MD Work Phone: [facility] 12-20-2024 09:41-0400 Systolic blood pressure 128 mm[Hg] Humberto Jackson MD Work Phone: [facility] 11-22-2024 08:14-0500 Body mass index (BMI) [Ratio] 36.96 kg/m2 Humberto Jackson MD Work Phone: [facility] 11-22-2024 08:14-0500 Body weight 130.64 kg Humberto Jackson MD Work Phone: [facility] 11-22-2024 08:14-0500 Diastolic blood pressure 90 mm[Hg] Humberto Jackson MD Work Phone: [facility] 11-22-2024 08:14-0500 Heart rate 92 /min Humberto Jackson MD Work Phone: [facility] 11-22-2024 08:14-0500 Respiratory rate 16 /min Humberto Jackson MD Work Phone: [facility] 11-22-2024 08:14-0500 Systolic blood pressure 120 mm[Hg] Humberto Jackson MD Work Phone: [facility] 09-17-2024 09:37-0500 Diastolic blood pressure 78 mm[Hg] Humberto Jackson MD Work Phone: [facility] 09-17-2024 09:37-0500 Systolic blood pressure 114 mm[Hg] Humberto Jackson MD Work Phone: [facility] 09-17-2024 09:25-0500 Body mass index (BMI) [Ratio] 37.09 kg/m2 Humberto Jackson MD Work Phone: [facility] 09-17-2024 09:25-0500 Body weight 131.09 kg Humberto Jackson MD Work Phone: [facility] 09-17-2024 09:25-0500 Heart rate 90 /min Humberto Jackson MD Work Phone: [facility] 09-17-2024 09:25-0500 Respiratory rate 16 /min Humberto Jackson MD Work Phone: [facility] 08-19-2024 15:13-0500 Diastolic blood pressure 84 mm[Hg] Humberto Jackson MD Work Phone: [facility] 08-19-2024 15:13-0500 Systolic blood pressure 128 mm[Hg] Humberto Jackson MD Work Phone: [facility] 08-19-2024 14:50-0500 Body mass index (BMI) [Ratio] 37.6 kg/m2 Humberto Jackson MD Work Phone: [facility] 08-19-2024 14:50-0500 Body weight 132.9 kg Humberto Jackson MD Work Phone: [facility] 08-19-2024 14:50-0500 Heart rate 86 /min Humberto Jackson MD Work Phone: [facility] 08-19-2024 14:50-0500 Respiratory rate 16 /min Humberto Jackson MD Work Phone: [facility] 06-12-2024 09:00-0400 Diastolic blood pressure 97 mm[Hg] Storm Golias PT Work Phone: [facility] 06-12-2024 09:00-0400 Heart rate 82 /min Storm Golias PT Work Phone: [facility] 06-12-2024 09:00-0400 Systolic blood pressure 142 mm[Hg] Storm Golias PT Work Phone: [facility] 06-06-2024 07:52-0400 Body mass index (BMI) [Ratio] 38.37 kg/m2 Dominik Kelley APRN.MECHANICAL MANUFACTURING TECHNICIAN Work Phone: [facility] 06-06-2024 07:52-0400 Body weight 135.63 kg Dominik Kelley APRN.MECHANICAL MANUFACTURING TECHNICIAN Work Phone: [facility] 06-06-2024 07:52-0400 Diastolic blood pressure 80 mm[Hg] Dominik Kelley APRN.MECHANICAL MANUFACTURING TECHNICIAN Work Phone: [facility] 06-06-2024 07:52-0400 Heart rate 83 /min Dominik Kelley APRN.MECHANICAL MANUFACTURING TECHNICIAN Work Phone: [facility] 06-06-2024 07:52-0400 Respiratory rate 14 /min Dominik Kelley APRN.MECHANICAL MANUFACTURING TECHNICIAN Work Phone: [facility] 06-06-2024 07:52-0400 Systolic blood pressure 116 mm[Hg] Dominik Kelley APRN.MECHANICAL MANUFACTURING TECHNICIAN Work Phone: [facility] 05-21-2024 15:44-0400 Body mass index (BMI) [Ratio] 38.12 kg/m2 Dominik Kelley APRN.MECHANICAL MANUFACTURING TECHNICIAN Work Phone: [facility] 05-21-2024 15:44-0400 Body weight 134.72 kg Dominik Kelley APRN.MECHANICAL MANUFACTURING TECHNICIAN Work Phone: [facility] 05-21-2024 15:44-0400 Diastolic blood pressure 98 mm[Hg] Dominik Kelley APRN.MECHANICAL MANUFACTURING TECHNICIAN Work Phone: [facility] 05-21-2024 15:44-0400 Heart rate 105 /min Dominik Kelley WEIGH BOX TENDER.MECHANICAL MANUFACTURING TECHNICIAN Work Phone: [facility] 05-21-2024 15:44-0400 Respiratory rate 14 /min Dominik Kelley WEIGH BOX TENDER.MECHANICAL MANUFACTURING TECHNICIAN Work Phone: [facility] 05-21-2024 15:44-0400 Systolic blood pressure 150 mm[Hg] Dominik Kelley WEIGH BOX TENDER.MECHANICAL MANUFACTURING TECHNICIAN Work Phone: [facility] 01-31-2024 13:54-0400 Diastolic blood pressure 83 mm[Hg] Jacob Prado Jr., MD Work Phone: [facility] 01-31-2024 13:54-0400 Systolic blood pressure 130 mm[Hg] Jacob Prado Jr., MD Work Phone: [facility] 01-31-2024 13:43-0400 Body height 188 cm Jacob Prado Jr., MD Work Phone: [facility] 01-31-2024 13:43-0400 Body mass index (BMI) [Ratio] 38.68 kg/m2 Jacob Prado Jr., MD Work Phone: [facility] 01-31-2024 13:43-0400 Body weight 136.7 kg Jacob Prado Jr., MD Work Phone: [facility] 01-31-2024 13:43-0400 Heart rate 78 /min Jacob Prado Jr., MD Work Phone: [facility] 01-31-2024 13:43-0400 SaO2% (BldA) [Mass fraction] 100 % Jacob Prado Jr., MD Work Phone: [facility] 01-17-2024 07:58-0400 Body height 188 cm [facility] WEIGH BOX TENDER.MECHANICAL MANUFACTURING TECHNICIAN Work Phone: [facility] 01-17-2024 07:58-0400 Body weight 134.9 kg [facility] WEIGH BOX TENDER.MECHANICAL MANUFACTURING TECHNICIAN Work Phone: [facility] 01-17-2024 07:58-0400 Diastolic blood pressure 91 mm[Hg] [facility] WEIGH BOX TENDER.MECHANICAL MANUFACTURING TECHNICIAN Work Phone: [facility] 01-17-2024 07:58-0400 Heart rate 88 /min [facility] WEIGH BOX TENDER.MECHANICAL MANUFACTURING TECHNICIAN Work Phone: [facility] 01-17-2024 07:58-0400 SaO2% (BldA) [Mass fraction] 95 % [facility] WEIGH BOX TENDER.MECHANICAL MANUFACTURING TECHNICIAN Work Phone: [facility] 01-17-2024 07:58-0400 Systolic blood pressure 136 mm[Hg] [facility] WEIGH BOX TENDER.MECHANICAL MANUFACTURING TECHNICIAN Work Phone: [facility] 12-06-2023 09:13-0500 Diastolic blood pressure 78 mm[Hg] Humberto Jackson MD Work Phone: [facility] 12-06-2023 09:13-0500 Systolic blood pressure 132 mm[Hg] Humberto Jackson MD Work Phone: [facility] 12-06-2023 08:37-0500 Body height 188 cm Humberto Jackson MD Work Phone: [facility] 12-06-2023 08:37-0500 Body weight 132.45 kg Humberto Jackson MD Work Phone: [facility] 12-06-2023 08:37-0500 Heart rate 72 /min Humberto Jackson MD Work Phone: [facility] 12-06-2023 08:37-0500 Respiratory rate 16 /min Humberto Jackson MD Work Phone: [facility] 04-15-2023 11:34-0400 Body temperature 99.3 [degF] Dr. Humberto Jackson Work Phone: [facility] 04-15-2023 11:34-0400 Diastolic blood pressure 77 mm[Hg] Dr. Humberto Jackson Work Phone: [facility] 07-08-2023 11:34-0400 Heart rate 87 /min Dr. Humberto Jackson Work Phone: 1(571)717-360443 [place] [address] 04-15-2023 11:34-0400 Respiratory rate 16 /min Dr. Humberto Jackson Work Phone: 9(458)070-775869 [place] [address] 04-15-2023 11:34-0400 SaO2% (BldA) [Mass fraction] 95 % Dr. Humberto Jackson Work Phone: 8(426)946-538269 [place] [address] 04-15-2023 11:34-0400 Systolic blood pressure 113 mm[Hg] Dr. Humberto Jackson Work Phone: 9(195)998-130469 [place] [address] 04-15-2023 05:01-0400 Inhaled oxygen flow rate 2 L/min Dr. Humberto Jackson Work Phone: 8(911)281-099469 [place] [address] 04-14-2023 17:03-0400 Body temperature 99.8 [degF] Dr. Humberto Jackson Work Phone: 0(936)012-611769 [place] [address] 04-14-2023 17:03-0400 Diastolic blood pressure 81 mm[Hg] Dr. Humberto Jackson Work Phone: 3(006)512-711969 [place] [address] 04-14-2023 17:03-0400 Heart rate 99 /min Dr. Humberto Jackson Work Phone: 8(823)046-937343 [place] [address] 04-14-2023 17:03-0400 Respiratory rate 16 /min Dr. Humberto Jackson Work Phone: 2(966)069-350369 [place] [address] 04-14-2023 17:03-0400 SaO2% (BldA) [Mass fraction] 91 % Dr. Humberto Jackson Work Phone: 9(560)041-718643 [place] [address] 04-14-2023 17:03-0400 Systolic blood pressure 117 mm[Hg] Dr. Humberto Jackson Work Phone: 9(679)714-758169 [place] [address] 04-14-2023 16:13-0400 Body height 187.[address] Humberto Jackson Work Phone: 7(430)119-156669 [place] [address] 04-14-2023 16:13-0400 Body mass index (BMI) [Ratio] 36.9 kg/m2 Dr. Humberto Jackson Work Phone: [facility] 04-14-2023 16:13-0400 Body weight 130.[address] Humberto Jackson Work Phone: [facility] 04-14-2023 13:41-0400 Body weight 130.18 kg Dominik Kelley WEIGH BOX TENDER.MECHANICAL MANUFACTURING TECHNICIAN Work Phone: [facility] 04-14-2023 13:41-0400 Diastolic blood pressure 88 mm[Hg] Dominik Kelley WEIGH BOX TENDER.MECHANICAL MANUFACTURING TECHNICIAN Work Phone: [facility] 04-14-2023 13:41-0400 Heart rate 114 /min Dominik Kelley WEIGH BOX TENDER.MECHANICAL MANUFACTURING TECHNICIAN Work Phone: [facility] 04-14-2023 13:41-0400 Respiratory rate 16 /min Dominik Kelley WEIGH BOX TENDER.MECHANICAL MANUFACTURING TECHNICIAN Work Phone: [facility] 04-14-2023 13:41-0400 Systolic blood pressure 132 mm[Hg] Dominik Kelley WEIGH BOX TENDER.MECHANICAL MANUFACTURING TECHNICIAN Work Phone: [facility] 04-10-2023 08:02-0400 Body temperature 97.7 [degF] Kenyatta Castaneda PA-C Work Phone: [facility] 04-10-2023 08:02-0400 Body weight 130.64 kg Kenyatta Castaneda PA-C Work Phone: [facility] 04-10-2023 08:02-0400 Diastolic blood pressure 82 mm[Hg] Kenyatta Castaneda PA-C Work Phone: [facility] 04-10-2023 08:02-0400 Heart rate 96 /min Kenyatta Castaneda PA-C Work Phone: [facility] 04-10-2023 08:02-0400 Respiratory rate 18 /min Kenyatta Castaneda PA-C Work Phone: [facility] 04-10-2023 08:02-0400 Systolic blood pressure 136 mm[Hg] Kenyatta Castaneda PA-C Work Phone: [facility] 01-27-2023 15:46-0400 Body height 188 cm [facility] WEIGH BOX TENDER.MECHANICAL MANUFACTURING TECHNICIAN Work Phone: [facility] 01-27-2023 15:46-0400 Body weight 131.63 kg [facility] WEIGH BOX TENDER.MECHANICAL MANUFACTURING TECHNICIAN Work Phone: [facility] 01-27-2023 15:46-0400 Diastolic blood pressure 85 mm[Hg] [facility] WEIGH BOX TENDER.MECHANICAL MANUFACTURING TECHNICIAN Work Phone: [facility] 01-27-2023 15:46-0400 Heart rate 102 /min [facility] WEIGH BOX TENDER.MECHANICAL MANUFACTURING TECHNICIAN Work Phone: [facility] 01-27-2023 15:46-0400 SaO2% (BldA) [Mass fraction] 97 % [facility] WEIGH BOX TENDER.MECHANICAL MANUFACTURING TECHNICIAN Work Phone: [facility] 01-27-2023 15:46-0400 Systolic blood pressure 142 mm[Hg] [facility] WEIGH BOX TENDER.MECHANICAL MANUFACTURING TECHNICIAN Work Phone: [facility] 01-09-2023 08:18-0400 Body weight 131.09 kg Dominik Kelley WEIGH BOX TENDER.MECHANICAL MANUFACTURING TECHNICIAN Work Phone: [facility] 01-09-2023 08:18-0400 Diastolic blood pressure 82 mm[Hg] Dominik Knoble WEIGH BOX TENDER.MECHANICAL MANUFACTURING TECHNICIAN Work Phone: [facility] 01-09-2023 08:18-0400 Heart rate 80 /min Dominik Nadegeoble WEIGH BOX TENDER.MECHANICAL MANUFACTURING TECHNICIAN Work Phone: [facility] 01-09-2023 08:18-0400 Respiratory rate 16 /min Dominik Alfie WEIGH BOX TENDER.MECHANICAL MANUFACTURING TECHNICIAN Work Phone: [facility] 01-09-2023 08:18-0400 Systolic blood pressure 124 mm[Hg] Dominik Alfie WEIGH BOX TENDER.MECHANICAL MANUFACTURING TECHNICIAN Work Phone: [facility] 12-07-2022 08:57-0500 Body weight 129.73 kg Humberto Jackson MD Work Phone: [facility] 12-07-2022 08:57-0500 Diastolic blood pressure 84 mm[Hg] Humberto Jackson MD Work Phone: [facility] 12-07-2022 08:57-0500 Heart rate 84 /min Humberto Jackson MD Work Phone: [facility] 12-07-2022 08:57-0500 Respiratory rate 16 /min Humberto Jackson MD Work Phone: [facility] 12-07-2022 08:57-0500 Systolic blood pressure 124 mm[Hg] Humberto Jackson MD Work Phone: [facility] 08-30-2022 08:32-0500 Diastolic blood pressure 83 mm[Hg] Johanna Bliss MD Work Phone: [facility] 08-30-2022 08:32-0500 Heart rate 78 /min Johanna Bliss MD Work Phone: [facility] 08-30-2022 08:32-0500 Respiratory rate 16 /min Johanna Bliss MD Work Phone: [facility] 08-30-2022 08:32-0500 SaO2% (BldA) [Mass fraction] 90 % Johanna Bliss MD Work Phone: [facility] 08-30-2022 08:32-0500 Systolic blood pressure 124 mm[Hg] Johanna Bliss MD Work Phone: [facility] 08-30-2022 07:09-0500 Body temperature 97.5 [degF] Johanna Bliss MD Work Phone: [facility] 08-17-2022 12:34-0500 Body temperature 97.5 [degF] Kenyatta Castaneda PA-C Work Phone: [facility] 08-17-2022 12:34-0500 Body weight 127.91 kg Kenyatta Castaneda PA-C Work Phone: [facility] 08-17-2022 12:34-0500 Diastolic blood pressure 86 mm[Hg] Kenyatta Castaneda PA-C Work Phone: [facility] 08-17-2022 12:34-0500 Heart rate 76 /min Kenyatta Castaneda PA-C Work Phone: [facility] 08-17-2022 12:34-0500 Respiratory rate 18 /min Kenyatta Castaneda PA-C Work Phone: [facility] 08-17-2022 12:34-0500 Systolic blood pressure 122 mm[Hg] Kenyatta Castaneda PA-C Work Phone: [facility] 08-11-2022 10:32-0400 Body temperature 97 [degF] Kenyatta Castaneda PA-C Work Phone: [facility] 08-11-2022 10:32-0400 Body weight 127.46 kg Kenyatta Castaneda PA-C Work Phone: [facility] 08-11-2022 10:32-0400 Diastolic blood pressure 88 mm[Hg] Kenyatta Castaneda PA-C Work Phone: [facility] 08-11-2022 10:32-0400 Heart rate 68 /min Kenyattayevgeniy Castaneda PA-C Work Phone: [facility] 08-11-2022 10:32-0400 Respiratory rate 18 /min Kenyatta Castaneda PA-C Work Phone: [facility] 08-11-2022 10:32-0400 Systolic blood pressure 120 mm[Hg] Kenyatta Castaneda PA-C Work Phone: [facility] 08-04-2022 09:13-0400 Body temperature 98.91 [degF] Emma Sheets WEIGH BOX TENDER.MECHANICAL MANUFACTURING TECHNICIAN Work Phone: [facility] 08-04-2022 09:13-0400 Body weight 125.65 kg Emma Sheets APRN.MECHANICAL MANUFACTURING TECHNICIAN Work Phone: [facility] 08-04-2022 09:13-0400 Diastolic blood pressure 72 mm[Hg] Emma Sheets WEIGH BOX TENDER.MECHANICAL MANUFACTURING TECHNICIAN Work Phone: [facility] 08-04-2022 09:13-0400 Heart rate 90 /min Emma Sheets WEIGH BOX TENDER.MECHANICAL MANUFACTURING TECHNICIAN Work Phone: [facility] 08-04-2022 09:13-0400 Respiratory rate 24 /min Emma Sheets WEIGH BOX TENDER.MECHANICAL MANUFACTURING TECHNICIAN Work Phone: [facility] 08-04-2022 09:13-0400 SaO2% (BldA) [Mass fraction] 96 % Emma Sheets WEIGH BOX TENDER.MECHANICAL MANUFACTURING TECHNICIAN Work Phone: [facility] 08-04-2022 09:13-0400 Systolic blood pressure 122 mm[Hg] Emma Sheets WEIGH BOX TENDER.MECHANICAL MANUFACTURING TECHNICIAN Work Phone: [facility] 06-07-2022 08:01-0400 Body weight 134.63 [facility] WE[facility] BOX TENDER.MECHANICAL MANUFACTURING TECHNICIAN Work Phone: [facility] 06-07-2022 08:01-0400 Diastolic blood pressure 88 mm[Hg] Torres Kupiec WEIGH BOX TENDER.MECHANICAL MANUFACTURING TECHNICIAN Work Phone: [facility] 06-07-2022 08:01-0400 Heart rate 79 /min Torres Kupiec WEIGH BOX TENDER.MECHANICAL MANUFACTURING TECHNICIAN Work Phone: [facility] 06-07-2022 08:01-0400 SaO2% (BldA) [Mass fraction] 95 % Torres Kupiec WEIGH BOX TENDER.MECHANICAL MANUFACTURING TECHNICIAN Work Phone: [facility] 06-07-2022 08:01-0400 Systolic blood pressure 132 mm[Hg] Torres Kupiec WEIGH BOX TENDER.MECHANICAL MANUFACTURING TECHNICIAN Work Phone: [facility] 06-04-2022 09:41-0400 Body height 188.5 cm Humberto Jackson MD Work Phone: [facility] 06-04-2022 09:41-0400 Body temperature 97.2 [degF] Humberto Jackson MD Work Phone: [facility] 06-04-2022 09:41-0400 Body weight 132.45 kg Humberto Jackson MD Work Phone: [facility] 06-04-2022 09:41-0400 Diastolic blood pressure 86 mm[Hg] Humberto Jackson MD Work Phone: [facility] 06-04-2022 09:41-0400 Heart rate 72 /min Humberto Jackson MD Work Phone: [facility] 06-04-2022 09:41-0400 Respiratory rate 18 /min Humberto Jackson MD Work Phone: [facility] 06-04-2022 09:41-0400 Systolic blood pressure 122 mm[Hg] Humberto Jackson MD Work Phone: [facility] 03-04-2022 08:28-0400 Body height 187.2 cm Torres Kupie WEIGH BOX TENDER.MECHANICAL MANUFACTURING TECHNICIAN Work Phone: [facility] 03-04-2022 08:28-0400 Body [facility] T[facility].MECHANICAL MANUFACTURING TECHNICIAN Work Phone: [facility] 03-04-2022 08:28-0400 Diastolic blood pressure 97 mm[Hg] [facility] WE[facility] BOX TENDER.MECHANICAL MANUFACTURING TECHNICIAN Work Phone: [facility] 03-04-2022 08:28-0400 Heart rate 77 /[facility] WEIGH BOX TENDER.MECHANICAL MANUFACTURING TECHNICIAN Work Phone: [facility] 03-04-2022 08:28-0400 SaO2% (BldA) [Mass fraction] 94 % Torres Kupie WEIGH BOX TENDER.MECHANICAL MANUFACTURING TECHNICIAN Work Phone: [facility] 03-04-2022 08:28-0400 Systolic blood pressure 148 mm[Hg] Torres K[facility]iec WEIGH BOX TENDER.MECHANICAL MANUFACTURING TECHNICIAN Work Phone: [facility] Encounters Encounter Date Encounter Type Care Provider Facility Start: 03-10-2025 End: 03-10-2025 Follow-up encounter Kenyatta Castaneda PA-C Work Phone: [facility] Start: 03-10-2025 End: 03-10-2025 Telephone encounter Kenyatta Castaneda PA-C Work Phone: [facility] Comment on above: Results, Lab Start: 03-10-2025 End: 03-10-2025 Patient encounter procedure Nelda Quigley MECHANICAL MANUFACTURING TECHNICIAN Work Phone: General Surgery Comment on above: Family history of co mer cancer (Primary Dx); Anemia, unspecified type Start: 03-10-2025 End: 03-10-2025 ambulatory NELDARYAN QUIGLEY Facility:[facility] Start: 03-07-2025 End: 03-07-2025 Follow-up encounter Kenyatta Castaneda PA-C Work Phone: [facility] Comment on above: Results Start: 03-07-2025 End: 03-07-2025 Telephone encounter Kenyatta Castaneda PA-C Work Phone: [facility] Start: 03-07-2025 End: 03-07-2025 ambulatory KENYATTA CASTANEDA Facility:[facility] Start: 03-06-2025 End: 03-06-2025 ambulatory HUMBERTO JACKSON Facility:[facility] Start: 03-06-2025 End: 03-06-2025 Office outpatient visit 25 minutes Kenyatta Castaneda PA-C Work Phone: [facility] Comment on above: Tachycardia (Primary Dx); Lightheadedness Start: 03-06-2025 End: 03-06-2025 ambulatory HUMBERTO JACKSON Facility:[facility] Start: 02-21-2025 End: 02-21-2025 Patient encounter procedure Vikash Booth MD Work Phone: Orthopedics Comment on above: Adhesive capsulitis of right shoulder Start: 02-21-2025 End: 02-21-2025 ambulatory ELIZABETH SUÁREZ Facility:[facility] Start: 02-18-2025 End: 02-18-2025 Patient encounter procedure [facility] Provider [facility] Start: 02-18-2025 End: 02-18-2025 Refill Torres Monaco APRN.CNP Work Phone: Endocrinology Comment on above: Refill Request Start: 02-12-2025 End: 02-12-2025 Telephone encounter Varsha Vaughn APRN.MECHANICAL MANUFACTURING TECHNICIAN Work Phone: [facility] Comment on above: Patient Update ([employer] Benefits Investigation) Start: 02-06-2025 End: 02-06-2025 Telemedicine consultation with patient Jana Babcock MD Work Phone: Endocrinology Start: 02-06-2025 End: 02-06-2025 Patient encounter procedure Lissy Bowman MD Work Phone: [facility] BARIATRIC DEPARTMENT Comment on above: Gastroesophageal ref lux disease, unspecified whether esophagitis present (Primary Dx); Class 2 severe obesity with serious comorbidity and body mass index (BMI) of 36.0 to 36.9 in adult, unspecified obesity type (HCC); NAFLD (nonalcoholic fatty liver disease); Esophageal dysphagia; MIKE (obstructive sleep apnea) Start: 02-06-2025 End: 02-06-2025 ambulatory Humberto Jackson MD Work Phone: [facility] [place] Comment on above: Methylphenidate shor tage Pituitary gland enla rged (HCC) (Primary Dx); Gynecomastia, male; Elevated prolactin level; Abnormal finding on MRI of brain; Gynecomastia Start: 01-21-2025 End: 01-21-2025 ambulatory HUMBERTO JACKSON Facility:[facility] Start: 01-21-2025 End: 01-21-2025 Patient encounter procedure Humberto Jackson MD Work Phone: [facility] [place] Comment on above: Bacterial pneumonia (Primary Dx); Gastroesophageal reflux disease without esophagitis; Belching; Attention 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 Start: 01-11-2025 End: 01-11-2025 ambulatory HUMBERTO JAKCSON Facility:[facility] Start: 01-10-2025 End: 01-10-2025 Refill Torres Monaco APRN.MECHANICAL MANUFACTURING TECHNICIAN Work Phone: Endocrinology Comment on above: Refill Request Start: 01-08-2025 End: 03-10-2025 Follow-up encounter Elizabeth Suárez MD Work Phone: [facility] [place] Start: 01-06-2025 End: 01-06-2025 Office outpatient new 45 minutes Ja Mckeon MD Work Phone: [facility] Comment on above: Gynecomastia, male ( Primary Dx); Abnormal brain MRI Start: 01-06-2025 End: 01-06-2025 ambulatory JA MCKEON Facility:[facility] Start: 01-04-2025 ambulatory [facility] Start: 01-04-2025 End: 01-04-2025 Subsequent hospital visit by physician Kiesha [facility] (1.5t) Radiology Comment on above: Acute pain of right shoulder [M25.511] Start: 12-30-2024 End: 12-30-2024 Follow-up encounter Humberto Jackson MD Work Phone: [facility] [place] Start: 12-30-2024 End: 12-30-2024 Subsequent hospital visit by physician Jeffry [facility] [place] Work Phone: Radiology Comment on above: Abnormal lung sounds [R09.89] Start: 12-30-2024 End: 12-30-2024 ambulatory HUMBERTO JACKSON Facility:[facility] Start: 12-30-2024 End: 12-30-2024 Ophthalmic examination and evaluation Humberto Jackson MD Work Phone: [facility] Start: 12-30-2024 End: 12-30-2024 Patient encounter procedure Humberto Jackson MD Work Phone: [facility] Comment on above: Well adult exam ([facility] Dx); Type 2 diabetes mellitus without complication, [...] 12-30-2024 End: 12-30-2024 Patient encounter status Humberto Jcakson MD Work Phone: [facility] Work Phone: Start: 12-24-2024 End: 12-24-2024 Telephone encounter Ja Mckeon MD Work Phone: [facility] Start: 12-23-2024 End: 12-23-2024 Telephone encounter Humberto Jackson MD Work Phone: [facility] [place] Comment on above: Appointment Start: 12-20-2024 End: 12-20-2024 Telephone encounter Ja Mckeon MD Work Phone: [facility] Start: 12-20-2024 End: 12-20-2024 ambulatory HUMBERTO JACKSON Facility:[facility] Start: 12-20-2024 End: 12-20-2024 Patient encounter procedure Humberto Jackson MD Work Phone: [facility] [place] Comment on above: Gynecomastia (Primar y Dx); Acute pain of right shoulder; Elevated prolactin level; Pituitary adenoma (HCC) Start: 12-16-2024 End: 12-16-2024 E-mail encounter from caregiver Tam Dat KUMAR [facility] [place] Start: 12-16-2024 End: 12-16-2024 Patient encounter procedure Tam Daugherty MA [facility] [place] Comment on above: results/appointments Start: 2024 End: 12-17-2024 Telephone encounter Karthik Nolan MD Work Phone: [facility] Start: 12-12-2024 End: 12-12-2024 Telephone encounter Self Nisha Kang [facility] Comment on above: Triage (WQ) Start: 12-11-2024 End: 12-16-2024 Follow-up encounter Humberto Jackson MD Work Phone: [facility] [place] Comment on above: Gynecomastia, male ( Primary Dx); Elevated prolactin level; Abnormal finding on MRI of brain Start: 12-11-2024 End: 12-11-2024 ambulatory HUMBERTO JACKSON Facility:[facility] Start: 12-11-2024 End: 12-11-2024 Subsequent hospital visit by physician [facility] Kevin (I-Stat/1.5t) Radiology Comment on above: Gynecomastia, male [ N62] Start: 12-06-2024 End: 12-09-2024 ambulatory Humberto Jackson MD Work Phone: [facility] [place] Comment on above: Methylphenidate Start: 12-03-2024 End: 12-04-2024 Follow-up encounter Humberto Jackson MD Work Phone: [facility] [place] Comment on above: Gynecomastia, male ( Primary Dx) Start: 12-03-2024 End: 12-03-2024 ambulatory HUMBERTO JACKSON Facility:[facility] Start: 12-03-2024 End: 12-03-2024 Subsequent hospital visit by physician [facility] Work Phone: Radiology Comment on above: Subareolar mass of r ight breast [N63.41] Start: 11-26-2024 End: 11-27-2024 Follow-up encounter Humberto Jackson MD Work Phone: [facility] [place] Comment on above: Gynecomastia, male ( Primary Dx); Low testosterone in male; Elevated prolactin level; Medication management Start: 11-22-2024 End: 11-22-2024 Office outpatient visit 25 minutes Humberto Jackson MD Work Phone: [facility] [place] Comment on above: Subareolar mass of r ight breast (Primary Dx) Start: 11-22-2024 End: 11-22-2024 ambulatory HUMBERTO JACKSON Facility:[facility] Start: 11-20-2024 End: 11-20-2024 E-mail encounter from caregiver Tam Daugherty MA [facility] [place] Start: 11-20-2024 End: 11-20-2024 Patient encounter procedure Tam Daugherty MA [facility] [place] Comment on above: Appointment Start: 11-18-2024 End: 11-18-2024 Refill Humberto Jackson MD Work Phone: [facility] [place] Comment on above: Refill Request Start: 11-04-2024 End: 11-05-2024 Refill Torres Monaco MECHANICAL MANUFACTURING TECHNICIAN Work Phone: Endocrinology Comment on above: Refill Request Start: 10-25-2024 End: 10-25-2024 ambulatory HUMBERTO JACKSON Facility:[facility] Start: 10-25-2024 End: 10-25-2024 Subsequent hospital visit by physician [facility] Work Phone: Radiology Comment on above: Elevated alkaline ph osphatase level [R74.8] Start: 10-23-2024 End: 10-23-2024 ambulatory Humberto Jackson MD Work Phone: [facility] [place] Comment on above: Gerd Start: 10-16-2024 End: 10-28-2024 Telephone encounter Humberto Jackson MD Work Phone: [facility] [place] Comment on above: Results Start: 10-14-2024 End: 10-14-2024 ambulatory HUMBERTO JACKSON Facility:[facility] Start: 10-10-2024 End: 10-11-2024 ambulatory Humberto Jackson MD Work Phone: [facility] [place] Comment on above: Reflux Start: 09-17-2024 End: 09-17-2024 ambulatory HUMBERTO JACKSON Facility:[facility] Start: 09-17-2024 End: 09-17-2024 Patient encounter procedure Humberto Jackson MD Work Phone: [facility] [place] Comment on above: Attention deficit di sorder (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 (Primary Dx); Mood disorder (HCC); Major depressive disorder with single episode, in partial remission (HCC); Agitation; Dyslipidemia Start: 08-26-2024 End: 08-26-2024 ambulatory Storm [facility]el [facility] Comment on above: Acute pain of right shoulder (Primary Dx) Start: 08-19-2024 End: 08-19-2024 Patient encounter procedure Humberto Jackson MD Work Phone: [facility] Comment on above: Attention deficit di sorder (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 (Primary Dx); Major depressive disorder with single episode, in partial remission (HCC); Medication management Start: 08-19-2024 End: 08-19-2024 ambulatory HUMBERTO JACKSON Facility:[facility] Start: 08-17-2024 End: 08-19-2024 Refill Kenyatta Castaneda PA-C Work Phone: [facility] Comment on above: Refill Request Start: 08-05-2024 End: 08-05-2024 ambulatory Storm Golias PT Work Phone: [facility] Comment on above: Acute pain of right shoulder (Primary Dx) Start: 07-22-2024 End: 07-22-2024 ambulatory Storm Golias PT Work Phone: [facility] Comment on above: Acute pain of right shoulder (Primary Dx) Start: 06-28-2024 End: 06-28-2024 ambulatory Ruby Cho [employer] Work Phone: [facility] Comment on above: Acute pain of right shoulder (Primary Dx) Start: 06-16-2024 End: 06-17-2024 Refill Humberto Jackson MD Work Phone: [facility] Comment on above: Refill Request Start: 06-12-2024 End: 06-12-2024 ambulatory Storm Golias PT Work Phone: [facility] Comment on above: Acute pain of right shoulder Start: 06-06-2024 End: 06-06-2024 Patient encounter procedure Dominik Kelley APRN.MECHANICAL MANUFACTURING TECHNICIAN Work Phone: [facility] Comment on above: Dyslipidemia (Primar y Dx); Type 2 diabetes mellitus without complication, without long-term current use of insulin (HCC); Multiple thyroid nodules; Medication management; GERD without esophagitis Start: 06-06-2024 End: 06-06-2024 ambulatory HUMBERTO JACKSON Facility:[facility] Start: 05-27-2024 End: 05-28-2024 Telephone encounter Dominik Kelley APRN.MECHANICAL MANUFACTURING TECHNICIAN Work Phone: [facility] [place] Comment on above: Results Start: 05-21-2024 End: 05-21-2024 Subsequent hospital visit by physician Xr [facility] [place] Work Phone: Radiology Comment on above: Acute pain of right shoulder [M25.511] Start: 05-21-2024 End: 05-21-2024 ambulatory HUMBERTO JACKSON Facility:[facility] Start: 05-21-2024 End: 05-21-2024 Patient encounter procedure Dominik Kelley APRN.MECHANICAL MANUFACTURING TECHNICIAN Work Phone: [facility] Comment on above: Acute pain of right shoulder (Primary Dx); Type 2 diabetes mellitus without complication, without long-term current use of insulin (HCC); Dyslipidemia; Multiple thyroid nodules; Medication management Start: 05-21-2024 End: 05-21-2024 ambulatory Nurse Intm/Famp Triage [facility] Work Phone: Nurse Phone Triage Comment on above: Nurse Triage Call Arm Pain Start: 05-13-2024 Refill Humberto payne MD Work Phone: [facility] Comment on above: Refill Request Start: 04-02-2024 ambulatory Humberto Jackson Facility :[facility] Start: 03-13-2024 End: 03-13-2024 ambulatory Humberto Jackson Facility:[facility] Start: 03-12-2024 Chart abstracting Humberto san MD Work Phone: [facility] Comment on above: Outside Procedure Start: 03-11-2024 Chart abstracting Tam Daugherty MA [facility] Comment on above: Procedure Start: 03-10-2024 ambulatory Humberto Jackson Facility :[facility] Start: 03-10-2024 End: 03-10-2024 Emergency department patient visit Braeden Reid Facility:[facility] Start: 02-28-2024 Telephone encounter Jacob le MD Work Phone: Endocrinology [facility] Comment on above: Outside Lab Results (Afirma Results) Start: 02-23-2024 Refill Humberto payne MD Work Phone: [facility] Comment on above: Refill Request Start: 02-13-2024 Telephone encounter Jacob le MD Work Phone: Endocrinology [facility] Comment on above: Results (Afirma 01/30) Start: [...] nodules Start: 01-24-2024 Telephone encounter Torres tian WEIGH BOX TENDER.MECHANICAL MANUFACTURING TECHNICIAN Work Phone: Endocrinology Comment on above: Results; Appointment Start: 01-23-2024 Refill Humberto payne MD Work Phone: [facility] Comment on above: Refill Request Start: 01-19-2024 ambulatory TORRES MONACO Facilit y:[facility] Start: 01-19-2024 End: 01-19-2024 Subsequent hospital visit by physician [facility] Work Phone: Radiology Comment on above: Multiple thyroid nod ules [E04.2] Start: 01-17-2024 Refill Torres lentz WEIGH BOX TENDER.MECHANICAL MANUFACTURING TECHNICIAN Work Phone: Endocrinology Comment on above: Med Change Request Start: 01-17-2024 End: 01-17-2024 Patient encounter procedure Torres Monaco WEIGH BOX TENDER.MECHANICAL MANUFACTURING TECHNICIAN Work Phone: Endocrinology Comment on above: Type 2 diabetes bernardo itus without complication, without long- term current use of insulin (HCC) (Primary Dx); Dyslipidemia; Multiple thyroid nodules; Obesity, Class II, BMI 35-39.9 Start: 12-15-2023 ambulatory Humberto payne MD Work Phone: [facility] Comment on above: Ritalin Start: 12-14-2023 ambulatory Humberto payne MD Work Phone: [facility] [place] Comment on above: Medication Start: 12-07-2023 Telephone encounter Humberto Jackson MD Work Phone: [facility] [place] Comment on above: Results Start: 12-06-2023 End: 12-06-2023 Ophthalmic examination and evaluation Humberto Jackson MD Work Phone: [facility] Work Phone: Start: 12-06-2023 End: 12-06-2023 Patient encounter procedure Humberto Jackson MD Work Phone: [facility] [place] Comment on above: Well adult exam [...] encounter status Humberto Jackson MD Work Phone: [facility] Work Phone: Start: 11-29-2023 E-mail encounter sybil m caregiver Tam Daugherty MA [facility] [place] Start: 11-29-2023 Patient encounter procedure Tam Daugherty MA [facility] [place] Comment on above: appointment Start: 10-27-2023 End: 10-27-2023 Subsequent hospital visit by physician Cristofer Bland110 X-Ray 1 [facility] Comment on above: Right foot pain Start: 10-27-2023 End: 10-27-2023 [facility] Start: 10-03-2023 Telephone encounter Torres tian WEIGH BOX TENDER.MECHANICAL MANUFACTURING TECHNICIAN Work Phone: Endocrinology Comment on above: PA--FREESTYLE EVERT 3 SENSOR (RENEWAL) Start: 09-06-2023 Telephone encounter Torres tian WEIGH BOX TENDER.MECHANICAL MANUFACTURING TECHNICIAN Work Phone: Endocrinology Comment on above: PA--MOUNJARO 2.5 MG Start: 08-23-2023 Refill Torres lentz WEIGH BOX TENDER.MECHANICAL MANUFACTURING TECHNICIAN Work Phone: Endocrinology Comment on above: Refill Request Start: 08-14-2023 Telephone encounter Dominik quintana WEIGH BOX TENDER.MECHANICAL MANUFACTURING TECHNICIAN Work Phone: [facility] Comment on above: Results Start: 07-15-2023 ambulatory Torres lentz WEIGH BOX TENDER.MECHANICAL MANUFACTURING TECHNICIAN Work Phone: Endocrinology Comment on above: Ozempic Start: 06-04-2023 Refill Torres lentz WEIGH BOX TENDER.MECHANICAL MANUFACTURING TECHNICIAN Work Phone: Endocrinology Comment on above: Refill Request Start: 04-25-2023 End: 04-25-2023 ambulatory Humberto Jackson Facility:[facility] Start: 04-15-2023 Non-patient / Non-visit Dr. Leo Jackson Work Phone: [facility] Start: 04-14-2023 End: 04-15-2023 Evaluation and management of inpatient Dr. Humberto Jackson Work Phone: [facility]Medical Surgical 3 Work Phone: Start: 04-14-2023 End: 04-15-[address] Humberto Jackson Work Phone: [facility] Work Phone: Start: 04-14-2023 Admission [facility] Dr[facility] Humberto Jackson Work Phone: [facility] Nurse Navigator Inpatients Work Phone: Start: 04-14-2023 Non-patient / Non-visit Dr. Leo Jackson Work Phone: [facility] Start: 04-14-2023 End: 04-15-2023 ambulatory Humberto Jackson MD Work Phone: [facility] [place] Comment on above: Large lump under my skin Start: 04-14-2023 End: 04-14-2023 Patient encounter procedure Dominik Kelley APRN.MECHANICAL MANUFACTURING TECHNICIAN Work Phone: [facility] [place] Comment on above: Abscess of buttock ( Primary Dx) Start: 04-10-2023 End: 04-10-2023 Patient encounter procedure Kenyatta Castaneda PA-C Work Phone: [facility] Comment on above: Migraine without aur a and without status migrainosus, not intractable (Primary Dx); Type 2 diabetes mellitus without complication, without long-term current use of insulin (HCC); Dyslipidemia; Attention 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; Mood disorder (HCC); ISABELLA (generalized anxiety disorder) Start: 03-27-2023 Refill Dominik olivia WEIGH BOX TENDER.MECHANICAL MANUFACTURING TECHNICIAN Work Phone: [facility] Comment on above: Refill Request Start: 03-14-2023 Refill Torres lentz WEIGH BOX TENDER.MECHANICAL MANUFACTURING TECHNICIAN Work Phone: Endocrinology Comment on above: Refill Request Start: 03-14-2023 Refill Torres lentz WEIGH BOX TENDER.MECHANICAL MANUFACTURING TECHNICIAN Work Phone: Endocrinology Comment on above: Refill Request Start: 01-27-2023 End: 01-27-2023 Patient encounter procedure Torres Monaco WEIGH BOX TENDER.MECHANICAL MANUFACTURING TECHNICIAN Work Phone: Endocrinology Comment on above: Type 2 diabetes bernardo itus without complication, without long- term current use of insulin (HCC) (Primary Dx); Dyslipidemia; Multiple thyroid nodules; Obesity, Class II, BMI 35-39.9 Start: 01-09-2023 End: 01-09-2023 Patient encounter procedure Dominik Kelley APRN.MECHANICAL MANUFACTURING TECHNICIAN Work Phone: [facility] Comment on above: Attention deficit di sorder (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 Start: 12-07-2022 Telephone encounter Humberto Jackson MD Work Phone: [facility] [place] Comment on above: Results Start: 12-07-2022 End: 12-07-2022 Ophthalmic examination and evaluation Humberto Jackson MD Work Phone: [facility] [place] Start: 12-07-2022 End: 12-07-2022 Patient encounter procedure Humberto Jackson MD Work Phone: [facility] [place] Comment on above: Type 2 diabetes bernardo [...] encounter procedure Kenyatta Castaneda PA-C Work Phone: [facility] [place] Comment on above: Abscess of buttock ( Primary Dx); Pilonidal cyst Start: 08-11-2022 End: 08-11-2022 Patient encounter procedure Kenyatta Castaneda PA-C Work Phone: [facility] [place] Comment on above: Abscess of buttock ( Primary Dx); Encounter for immunization Start: 08-04-2022 ambulatory Humberto payne MD Work Phone: [facility] [place] Comment on above: Pain management Start: 08-04-2022 Follow-up encounter Humberto Jackson MD Work Phone: [facility] Comment on above: Need to schedule [facility] Start: 08-04-2022 End: 08-04-2022 Patient encounter procedure Emma Sheets APRN.MECHANICAL MANUFACTURING TECHNICIAN Work Phone: [facility] Comment on above: Cellulitis of skin ( Primary Dx); Abscess Start: 07-20-2022 End: 07-20-2022 Nursing evaluation of patient and report Mi Nurse Work Phone: [facility] Comment on above: Need for vaccination (Primary Dx) Start: 06-10-2022 End: 06-10-2022 Nursing evaluation of patient and report Md Nurse Work Phone: [facility] Comment on above: Need for vaccination (Primary Dx) Start: 06-07-2022 End: 06-07-2022 Patient encounter procedure Torres Monaco APRN.MECHANICAL MANUFACTURING TECHNICIAN Work Phone: Endocrinology Comment on above: Type 2 diabetes bernardo itus without complication, without long- term current use of insulin (HCC) (Primary Dx); Dyslipidemia; Class 2 severe obesity with serious comorbidity and body mass index (BMI) of 37.0 to 37.9 in adult, unspecified obesity type (HCC) Start: 06-05-2022 Telephone encounter Humberto Jackson MD Work Phone: [facility] Comment on above: Results Start: 06-04-2022 End: 06-04-2022 Ophthalmic examination and evaluation Humberto Jackson MD Work Phone: [facility] Start: 06-04-2022 End: 06-04-2022 Patient encounter procedure Humberto Jackson MD Work Phone: [facility] Comment on above: Type 2 diabetes [...] encounter status Humberto Jackson MD Work Phone: [facility] Start: 04-27-2022 Refill Kenyatta Livingston on PA-C Work Phone: [facility] Comment on above: Refill Request Ozempic Start: 03-04-2022 End: 03-04-2022 Patient encounter procedure Torres Monaco WEIGH BOX TENDER.MECHANICAL MANUFACTURING TECHNICIAN Work Phone: Endocrinology Comment on above: Type 2 diabetes bernardo itus without complication, without long- term current use of insulin (HCC) (Primary Dx); Dyslipidemia; Class 2 severe obesity with serious comorbidity and body mass index (BMI) of 39.0 to 39.9 in adult, unspecified obesity type (HCC) Start: 01-31-2022 Refill Torres lentz WEIGH BOX TENDER.MECHANICAL MANUFACTURING TECHNICIAN Work Phone: Endocrinology Comment on above: Refill Request Start: 01-05-2022 Refill Humberto payne MD Work Phone: [facility] Comment on above: Refill Request Start: 12-03-2021 Ophthalmic examinati on and evaluation Humberto Jackson MD Work Phone: [facility] Start: 10-15-2021 End: 10-15-2021 Subsequent hospital visit by physician Xr [facility] [place] Work Phone: Radiology Comment on above: Cough [R05.9] Start: 12-22-2020 Patient encounter status Tierney Jackson MD Work Phone: [facility] Work Phone: Start: 10-20-2020 End: 10-20-2020 Subsequent hospital visit by physician Xr [facility] Work Phone: Radiology Comment on above: Pain in both knees, unspecified chronicity [M25.561, M25.562] Start: 10-09-2017 [facility] Start: 05-03-2017 Ambulatory Alejandro Calderon [facility] Procedures Date Procedure Procedure Detail [...] compl ete minimum 2 views Dominik Kelley WEIGH BOX TENDER.MECHANICAL MANUFACTURING TECHNICIAN Work Phone: Start: 01-31-2024 Us soft tissue head & neck real time imge rafael Prado MD Work Phone: Start: 01-17-2024 Hemoglobin A1c/Hemoglobin.[facility] WEIGH BOX TENDER.MECHANICAL MANUFACTURING TECHNICIAN Work Phone: Start: 12-06-2023 bepretty COVI D-19 VACCINE (2022- SEASON) AGE 12+ YR Humberto Jackson MD Work Phone: Start: 10-27-2023 XR FOOT RIGHT 3+ VIEWS STANTON PETERS Start: 10-27-2023 Radex foot complete minimum 3 views Stanton Peters DO Work Phone: Start: 04-14-2023 Incision and drainag e of perirectal abscess Dr. Humberto Jackson Work Phone: Start: 04-14-2023 CT of pelvis with contrast Dr. Humberto Jackson Work Phone: Start: 04-14-2023 Investigation of transfusion reaction Dr. Humberto Jackson Work Phone: Start: 01-27-2023 Hemoglobin A1c/Hemoglobin.total in Blood Torres Kupiec WEIGH BOX TENDER.MECHANICAL MANUFACTURING TECHNICIAN Work Phone: Start: 12-07-2022 Drug tst prsmv instr mnt chem analyzers pr date Humberto Jackson MD Work Phone: Start: 08-30-2022 Gluc bld gluc mntr d ev cleared fda spec home use Johanna Bliss MD Work Phone: Start: 08-30-2022 Colonoscopy flx dx w /collj spec when pfrmd Johanna Bliss MD Work Phone: Start: 08-30-2022 Colonoscopy Torres Sullivan kimi WEIGH BOX TENDER.MECHANICAL MANUFACTURING TECHNICIAN Work Phone: Start: 08-11-2022 INFLUENZA VACCINE QUADRIVALENT 6 MO - 64 YRS IM Kenyatta Castaneda PA-C Work Phone: Start: 08-11-2022 PFIZER-BIONTECH COVI D-19 BIVALENT BOOSTER VACCINE, AGE 12+ YR Kenyatta Castaneda PA-C Work Phone: Start: 03-04-2022 Hemoglobin A1c/Hemoglobin.total in Blood Torres Monaco WEIGH BOX TENDER.MECHANICAL MANUFACTURING TECHNICIAN Work Phone: Start: 10-15-2021 Radiologic exam ches [...] (3 - PPSV23 if available, else PCV20) [facility] Start: 12-14-2039 PNEUMOCOCCAL (3 - PPSV23 or PCV20) PNEUMOCOCCAL (3 - PPSV23 or PCV20) [facility] Start: 12-14-2039 Pneumococcal vaccination [facility] [facility] Start: 04-13-2031 DTaP/Tdap/Td Vaccines (3 - Td or Tdap) DTaP/Tdap/Td Vaccines (3 - Td or Tdap) [facility] Start: 04-13-2031 Urine microalbumin profile [place] [facility] Start: 12-06-2028 Pneumococcal vaccination Pneumococcal Vaccine (3 of 3 - PCV20 or PCV21) [facility] Start: 12-06-2028 Pneumococcal Vaccine: 50+ (3 of 3 - PCV20 or PCV21) Pneumococcal Vaccine: 50+ (3 of 3 - PCV20 or PCV21) [facility] Start: 08-30-2027 Colonoscopy COLONOSCOPY [facility] Start: 08-30-2027 COLORECTAL CANCER SCREENING COLORECTAL CANCER SCREENING [facility] Start: 08-30-2027 Screening for malignant neoplasm of colon [facility] Start: 03-06-2026 Annual PCP Team Chronic Disease Visit Annual PCP Team Chronic Disease Visit [facility] Start: 01-21-2026 Annual PCP Team Chronic Disease Visit Annual PCP Team Chronic Disease Visit [facility] Start: 12-30-2025 Annual PCP Team Chronic Disease Visit Annual PCP Team Chronic Disease Visit [facility] Start: 12-30-2025 Diabetic foot examination Diabetic Foot Exam [facility] Start: 12-30-2025 Shingrix Vaccine (1 of 2) Shingrix Vaccine (1 of 2) [facility] Comment on above: Postponed from 2024 (Declined at t his time) Start: 12-20-2025 Annual PCP Team Chronic Disease Visit Annual PCP Team Chronic Disease Visit [facility] Start: 12-20-2025 Hepatitis B surface antibody level LDL Cholesterol [facility] Start: 11-22-2025 Annual PCP Team Chronic Disease Visit Annual PCP Team Chronic Disease Visit [facility] Start: 10-14-2025 Annual PCP Team Chronic Disease Visit Annual PCP Team Chronic Disease Visit [facility] Start: 10-14-2025 Hepatitis B surface antibody level LDL Cholesterol [facility] Start: 09-17-2025 Annual PCP Team Chronic Disease Visit Annual PCP Team Chronic Disease Visit [facility] Start: 08-19-2025 Annual PCP Team Chronic Disease Visit Annual PCP Team Chronic Disease Visit [facility] Start: 07-03-2025 End: 07-03-2025 Patient encounter procedure Family [facility] [place] Comment on above: 6 month follow up follow up after MRI done 06/30 Start: 06-30-2025 End: 06-30-2025 Patient encounter procedure 06/30/2025 8:00 AM EDT Appointment Radiology [address] [place] [address] MRI PITUITARY WO/W IVCON Radiology Comment on above: MRI PITUITARY WO/W IVCON Start: 06-20-2025 End: 09-19-2025 CBC W Auto Differential panel - Blood COMPLETE BLOOD COUNT AND DIFFERENTIAL Lab Routine Type 2 diabetes mellitus without complication, without long-term current use of insulin (HCC) Anemia, unspecified type Expected: 06/20/2025, Expires: 09/19/2025 [facility] Comment on above: Expected: 06/20/2025, Expires: Start: 06-20-2025 End: 09-19-2025 Hepatic function 2000 panel - Serum or Plasma HEPATIC FUNCTION PNL Lab Routine Type 2 diabetes mellitus without complication, without long-term current use of insulin (HCC) Dyslipidemia Fatty liver Expected: 06/20/2025, Expires: 09/19/2025 [facility] Comment on above: Expected: 06/20/2025, Expires: Start: 06-20-2025 End: 09-19-2025 LIPID PANEL, NONFASTING LIPID PANEL, NONFASTING Lab Routine Type 2 diabetes mellitus without complication, without long-term current use of insulin (HCC) Dyslipidemia Fatty liver Expected: 06/20/2025, Expires: 09/19/2025 [facility] Comment on above: Expected: 06/20/2025, Expires: Start: 06-06-2025 Annual PCP Team Chronic Disease Visit Annual PCP Team Chronic Disease Visit [facility] Start: 05-21-2025 Annual PCP Team Chronic Disease Visit Annual PCP Team Chronic Disease Visit [facility] Start: 05-21-2025 Hepatitis B surface antibody level LDL Cholesterol [facility] Start: 04-30-2025 End: 04-30-2025 Patient encounter procedure 04/30/2025 11:30 AM EDT Office Visit Endocrinology [address] [address] Torres Monaco APRN.MECHANICAL MANUFACTURING TECHNICIAN [address] [address] follow up Endocrinology Comment on above: follow up Start: 04-17-2025 End: 04-17-2025 Patient encounter procedure 04/17/2025 12:30 PM EDT Office [place] [address] Tachycardia [R00.0]; Lightheadedness [R42] [facility] Comment on above: Tachycardia [R00.0]; Lightheadedness [R4 2] Start: 04-17-2025 End: 04-17-2025 Patient encounter procedure 04/17/2025 8:30 AM EDT Office Visit [facility] [address] [place], [place] [id number] Lissy Bowman MD 1 [facility] [address] [place] [address] HBC-f/u-UGI, EGD w/Patino & Mano [facility] Comment on above: HBC-f/u-UGI, EGD w/Patino & Mano Start: 04-04-2025 End: 02-06-2026 EGD - THERAPEUTIC, EUS, OR TUBE INTERVENTIONS EGD - THERAPEUTIC, EUS, OR TUBE INTERVENTIONS Endoscopy Routine Gastroesophageal reflux disease, unspecified whether esophagitis present Expected: 04/04/2025, Expires: 02/06/2026 [facility] Comment on above: Expected: 04/04/2025, Expires: Start: 04-04-2025 End: 04-04-2025 Patient encounter procedure 04/04/2025 10:00 AM EDT Appointment [facility] [address] [place] [address] Lissy Bowman MD 1 [facility] [address] [place] [address] [facility] Start: 04-04-2025 End: 04-04-2025 Admission to same day surgery center 04/04/2025 9:00 AM EDT - 04/04/2025 10:00 AM EDT Surgery [facility] [address] [place] [address] Lissy Bowman MD [address] [facility] [address] [place] [address] ESOPHAGEAL MANOMETRY CRISTO RAYMOND Comment on above: [...] encounter procedure 04/02/2025 3:[address] [facility] Endoscopy [address] [place] [address] Johanna Bliss MD [address] [facility] [place] [phone] [facility] Endoscopy Start: 03-27-2025 End: 03-27-2025 Patient encounter procedure 03/27/2025 8:00 AM EDT Appointment Radiology [address] [place] [address] Gastroesophageal reflux disease, unspecified whether esophagitis present [K21.9] Radiology Comment on above: Gastroesophageal reflux disease, unspeci fied whether esophagitis present [K21.9] Start: 03-22-2025 Hemoglobin A1c measurement HbA1C [facility] Start: 03-20-2025 End: 03-20-2025 Patient encounter procedure 03/20/2025 8:00 AM EDT Office Visit Cardiology [address] [place], [place] [id number] Tachycardia [R00.0]; Lightheadedness [R42] Cardiology Comment on above: Tachycardia [R00.0]; Lightheadedness [R4 2] Start: 03-10-2025 End: 06-09-2025 CBC W Auto Differential panel - Blood COMPLETE BLOOD COUNT AND DIFFERENTIAL Lab Routine Iron deficiency anemia, unspecified iron deficiency anemia type Expected: 03/10/2025, Expires: 06/09/2025 [facility] Work Phone: Comment on above: Expected: 03/10/2025, Expires: Start: 03-10-2025 End: 06-09-2025 Iron and Iron binding capacity panel - Serum or Plasma IRON AND TIBC Lab Routine Iron deficiency anemia, unspecified iron deficiency anemia type Expected: 03/10/2025, Expires: 06/09/2025 [facility] Comment on above: Expected: 03/10/2025, Expires: Start: 03-10-2025 End: 03-10-2025 Patient encounter procedure 03/10/2025 8:30 AM EDT Office Visit General Surgery [address] [place], [place] [id number] Nelda Quigley APRN.MECHANICAL MANUFACTURING TECHNICIAN [address] [facility] [address] [place], [place] [phone] Anemia, unspecified type. Hgb 9.2 Last colonoscopy 08/30. [facility] General Surgery Comment on above: Anemia, unspecified type. Hgb 9.2 Last c olonoscopy 08/30. [facility] Start: 03-06-2025 End: 06-05-2025 Basic metabolic 2000 panel - Serum or Plasma [facility] Comment on above: Expected: 03/06/2025, Expires: Start: 03-06-2025 End: 06-05-2025 CBC W Auto Differential panel - Blood [facility] Comment on above: Expected: 03/06/2025, Expires: Start: 03-06-2025 End: 06-05-2025 Thyrotropin [Units/volume] in Serum or Plasma [facility] Comment on above: Expected: 03/06/2025, Expires: Start: 02-26-2025 End: 02-26-2025 Patient encounter procedure 02/26/2025 9:30 AM EDT OT/PT/Speech Visit [facility] Outpatient Physical Therapy [address] [place] [address] Dat Zhang, PT [address] [place] [address] Adhesive capsulitis of right shoulder [M75.01] [facility] Comment on above: Adhesive capsulitis of right shoulder [M 75.01] Start: 02-22-2025 Glaucoma screening Dilated Retinal Exam [facility] Start: 02-21-2025 End: 02-21-2025 Patient encounter procedure 02/21/2025 1:30 PM EDT Office Visit Orthopedics [address] [facility] [address] [place] [address] Vikash Booth MD [address] [facility]. [facility] [address] [place] [address] Adhesive capsulitis of right shoulder Orthopedics Comment on above: Adhesive capsulitis of right shoulder Start: 02-17-2025 End: 02-17-2025 Patient encounter procedure Orthopaedics Comment on above: Adhesive capsulitis of right shoulder [M 75.01] Adhesive capsulitis of right shoulder Start: 02-06-2025 End: 02-06-2025 ambulatory 02/06/2025 2:30 PM EDT [facility] Endocrinology [address] [place] [address] Jana Babcock MD [address] [place] [address] Time Frame: Next available Endocrinology Comment on above: Time Frame: Next available Start: 01-30-2025 End: 05-01-2025 CBC W Auto Differential panel - Blood COMPLETE BLOOD COUNT AND DIFFERENTIAL Lab Routine Anemia, unspecified type Expected: 01/30/2025, Expires: 05/01/2025 [facility] Comment on above: Expected: 01/30/2025, Expires: Start: 01-30-2025 End: 05-01-2025 Cobalamin (Vitamin B12) [Mass/volume] in Serum or Plasma VITAMIN B12 Lab Routine Anemia, unspecified type Expected: 01/30/2025, Expires: 05/01/2025 [facility] Comment on above: Expected: 01/30/2025, Expires: Start: 01-30-2025 End: 05-01-2025 Ferritin [Mass/volume] in Serum or Plasma FERRITIN Lab Routine Anemia, unspecified type Expected: 01/30/2025, Expires: 05/01/2025 [facility] Comment on above: Expected: 01/30/2025, Expires: Start: 01-30-2025 End: 05-01-2025 Folate [Mass/volume] in Serum or Plasma FOLATE, SERUM Lab Routine Anemia, unspecified type Expected: 01/30/2025, Expires: 05/01/2025 [facility] Comment on above: Expected: 01/30/2025, Expires: Start: 01-30-2025 End: 05-01-2025 Iron and Iron binding capacity panel - Serum or Plasma IRON AND TIBC Lab Routine Anemia, unspecified type Expected: 01/30/2025, Expires: 05/01/2025 [facility] Work Phone: Comment on above: Expected: 01/30/2025, Expires: Start: 01-21-2025 End: 01-21-2025 Patient encounter procedure 01/21/2025 11:20 AM EDT Office Visit Family [place] [address] [place] [address] Humberto Jackson MD [address] [place] [id number] 2 week follow up Family [facility]ir [place] Comment on above: 2 week follow up Start: 01-12-2025 [facility]c [facility] Start: 01-06-2025 End: 01-06-2025 Patient encounter procedure 01/06/2025 2:30 PM EDT Office Visit [place] [id number] [facility] [address] [facility] [place] [phone] Ja Mckeon MD [address] [place], [place] [address]al[address] [place] [address] Gynecomastia [N62] [facility] Comment on above: Gynecomastia [N62] Start: 01-06-2025 End: 04-07-2025 Corticotropin [Mass/volume] in Plasma ACTH BLD Lab Routine Gynecomastia, male Expected: 01/06/2025, Expires: 04/07/2025 [facility] Work Phone: Comment on above: Expected: 01/06/2025, Expires: Start: 01-06-2025 End: 04-07-2025 INSULIN LIK GR FAC I INSULIN LIK GR FAC I Lab Routine Gynecomastia, male Expected: 01/06/2025, Expires: 04/07/2025 [facility] Comment on above: Expected: 01/06/2025, Expires: Start: 01-06-2025 End: 04-07-2025 Prolactin [Mass/volume] in Serum or Plasma PROLACTIN Lab Routine Gynecomastia, male Expected: 01/06/2025, Expires: 04/07/2025 [facility] Comment on above: Expected: 01/06/2025, Expires: Start: 01-04-2025 End: 01-04-2025 Patient encounter procedure 01/04/2025 8:40 AM EDT Appointment Radiology [address] [place] [address] Acute pain of right shoulder [M25.511] Radiology Comment on above: Acute pain of right shoulder [M25.511] Start: 12-30-2024 End: 12-30-2024 Patient encounter procedure Family [facility] [place] Comment on above: physical Start: 12-18-2024 End: 12-18-2024 ambulatory 12/18/2024 8:30 AM EDT [facility] [address] [address] Karthik Nolan MD [address] [place] [address] Gynecomastia, male [N62] [facility] Comment on above: Gynecomastia, male [N62] Start: 2024 Shingrix Vaccine (1 of 2) Shingrix Vaccine (1 of 2) [facility] Start: 2024 Zoster Vaccines (1 of 2) Zoster Vaccines (1 of 2) [facility] Start: 12-11-2024 End: 12-11-2024 Patient encounter procedure 12/11/2024 10:00 AM EST Appointment Radiology [address] [facility] [place] [address] Gynecomastia, male [N62] Radiology Comment on above: Gynecomastia, male [N62] Start: 12-07-2024 End: 03-08-2025 CBC W Auto Differential panel - Blood COMPLETE BLOOD COUNT AND DIFFERENTIAL Lab Routine GERD without esophagitis Expected: 12/07/2024, Expires: 03/08/2025 [facility] Comment on above: Expected: 12/07/2024, Expires: Start: 12-07-2024 End: 03-08-2025 Cobalamin (Vitamin B12) [Mass/volume] in Serum or Plasma VITAMIN B12 Lab Routine Medication management Expected: 12/07/2024, Expires: 03/08/2025 [facility] Comment on above: Expected: 12/07/2024, Expires: Start: 12-07-2024 End: 03-08-2025 Comprehensive metabolic 2000 panel - Serum or Plasma COMPREHENSIVE METABOLIC PANEL Lab Routine Type 2 diabetes mellitus without complication, without long-term current use of insulin (HCC) Expected: 12/07/2024, Expires: 03/08/2025 [facility] Comment on above: Expected: 12/07/2024, Expires: Start: 12-07-2024 End: 03-08-2025 Hemoglobin A1c in Blood HEMOGLOBIN A1C Lab Routine Type 2 diabetes mellitus without complication, without long-term current use of insulin (HCC) Expected: 12/07/2024, Expires: 03/08/2025 [facility] Comment on above: Expected: 12/07/2024, Expires: Start: 12-07-2024 End: 03-08-2025 LIPID PANEL, NONFASTING LIPID PANEL, NONFASTING Lab Routine Dyslipidemia Expected: 12/07/2024, Expires: 03/08/2025 [facility] Comment on above: Expected: 12/07/2024, Expires: Start: 12-07-2024 End: 03-08-2025 Magnesium [Mass/volume] in Serum or Plasma MAGNESIUM Lab Routine Medication management Expected: 12/07/2024, Expires: 03/08/2025 [facility] Comment on above: Expected: 12/07/2024, Expires: Start: 12-07-2024 End: 03-08-2025 Thyrotropin [Units/volume] in Serum or Plasma THYROID STIMULATING HORMONE Lab Routine Multiple thyroid nodules Expected: 12/07/2024, Expires: 03/08/2025 [facility] Comment on above: Expected: 12/07/2024, Expires: Start: 12-07-2024 End: 03-08-2025 Urinalysis complete panel - Urine URINALYSIS, WITH MICROSCOPIC Lab Routine Type 2 diabetes mellitus without complication, without long-term current use of insulin (HCC) Expected: 12/07/2024, Expires: 03/08/2025 [facility] Comment on above: Expected: 12/07/2024, Expires: Start: 12-06-2024 Annual PCP Team Chronic Disease Visit Annual PCP Team Chronic Disease Visit [facility] Start: 12-06-2024 Hepatitis B surface antibody level LDL Cholesterol [facility] Start: 12-03-2024 End: 12-03-2024 Patient encounter procedure Mammogram Comment on above: Dx: Subareolar mass of right breast [N63 .41] COMP LUMP RIGHT/DYLON DIAGOSTIC Start: 11-26-2024 End: 02-25-2025 Basic metabolic 2000 panel - Serum or Plasma BASIC METABOLIC PANEL Lab Routine Medication management Expected: 11/26/2024, Expires: 02/25/2025 [facility] Comment on above: Expected: 11/26/2024, Expires: Start: 11-26-2024 End: 02-25-2025 CREATININE BLD CREATININE BLD Lab Routine Medication management Expected: 11/26/2024, Expires: 02/25/2025 [facility] Comment on above: Expected: 11/26/2024, Expires: Start: 11-22-2024 End: 02-21-2025 Choriogonadotropin.beta subunit [Units/volume] in Serum or Plasma [facility] Comment on above: Expected: 11/22/2024, Expires: Start: 11-22-2024 End: 02-21-2025 Estradiol (E2) [Mass/volume] in Serum or Plasma [facility] Comment on above: Expected: 11/22/2024, Expires: Start: 11-22-2024 End: 02-21-2025 Follitropin [Units/volume] in Serum or Plasma [facility] Comment on above: Expected: 11/22/2024, Expires: Start: 11-22-2024 End: 02-21-2025 Lutropin [Units/volume] in Serum or Plasma [facility] [employer] Work Phone: Comment on above: Expected: 11/22/2024, Expires: Start: 11-22-2024 End: 02-21-2025 Prolactin [Mass/volume] in Serum or Plasma [facility] Comment on above: Expected: 11/22/2024, Expires: Start: 11-22-2024 End: 02-21-2025 Testosterone [Mass/volume] in Serum or Plasma [facility] Comment on above: Expected: 11/22/2024, Expires: Start: 11-22-2024 End: 02-21-2025 Thyrotropin [Units/volume] in Serum or Plasma [facility] Comment on above: Expected: 11/22/2024, Expires: Start: 11-22-2024 End: 02-21-2025 Thyroxine (T4) free [Mass/volume] in Serum or Plasma [facility] Comment on above: Expected: 11/22/2024, Expires: Start: 11-22-2024 End: 11-22-2024 Patient encounter procedure Family Medicine [place] Comment on above: right nipple hurts Contacted patient du e to provider being absent patient is aware of appointment needing to be rescheduled- Start: 10-25-2024 End: 10-25-2024 Patient encounter procedure 10/25/2024 8:15 AM EST Appointment Radiology [address] [place] [address] Elevated alkaline phosphatase level [R74.8] Radiology Comment on above: Elevated alkaline phosphatase level [R74 .8] Start: 10-21-2024 End: 10-21-2024 Patient encounter procedure 10/21/2024 8:00 AM EST Office Visit [facility] Ophthalmology [address] [place] [address] Erica Mejia, OD [address] [place] [address] for diabetic eye exam Ophthalmology Comment on above: for diabetic eye exam Start: 10-20-2024 Glaucoma screening Dilated Retinal Exam [facility] Start: 10-17-2024 End: 01-16-2025 ALK PHOS ISOENZYM BL ALK PHOS ISOENZYM BL Lab Routine Elevated alkaline phosphatase level Expected: 10/17/2024, Expires: 01/16/2025 [facility] Work Phone: Comment on above: Expected: 10/17/2024, Expires: Start: 10-17-2024 End: 01-16-2025 Gamma glutamyl transferase [Enzymatic activity/volume] in Serum or Plasma GGT Lab Routine Elevated alkaline phosphatase level Expected: 10/17/2024, Expires: 01/16/2025 [facility] Comment on above: Expected: 10/17/2024, Expires: Start: 10-17-2024 End: 01-16-2025 Mitochondria Ab [Presence] in Serum by Immunofluorescence MITOCHONDRIAL M2 IGG SERUM Lab Routine Elevated alkaline phosphatase level Expected: 10/17/2024, Expires: 01/16/2025 [facility] Comment on above: Expected: 10/17/2024, Expires: Start: 10-14-2024 End: 10-14-2024 Patient encounter procedure 10/14/2024 1:40 PM EST Office Visit Family Medicine [place] [address] [place] [address] Humberto Jackson MD [address] [facility] [address] [place] [address] Increased GERD Family Medicine [place] Comment on above: Increased GERD Start: 09-17-2024 End: 09-17-2024 Patient encounter procedure 09/17/2024 9:20 AM EST Office Visit Family Medicine [place] [address] [place] [address] Humberto Jackson MD [address] [facility] [address] [place] [address] 4 week follow up ADHD/depression Family [facility] [place] Comment on above: 4 week follow up ADHD/depression Start: 09-05-2024 End: 12-05-2024 Hemoglobin A1c in Blood HEMOGLOBIN A1C Lab Routine Type 2 diabetes mellitus without complication, without long-term current use of insulin (HCC) Expected: 09/05/2024, Expires: 12/05/2024 [facility] Comment on above: Expected: 09/05/2024, Expires: Start: 09-05-2024 End: 12-05-2024 LIPID PANEL, NONFASTING LIPID PANEL, NONFASTING Lab Routine Dyslipidemia Expected: 09/05/2024, Expires: 12/05/2024 [facility] Work Phone: Comment on above: Expected: 09/05/2024, Expires: 5 Start: 08-26-2024 End: 08-26-2024 ambulatory 08/26/2024 10:30 AM EST OT/PT/Speech Visit [facility] Physical Therapy [address] [place] [address] Storm Patel, PT [address] [place] [address] Acute pain of right shoulder [M25.511] [facility] Therapy Comment on above: Acute pain of right shoulder [M25.511] Start: 08-21-2024 Hemoglobin A1c measurement HbA1C [facility] Start: 08-19-2024 End: 08-19-2024 ambulatory 08/19/2024 9:30 AM EST OT/PT/Speech Visit [facility] Therapy [address] [place] [address] GoliasBeulahnt, PT [address] [place] [address] Acute pain of right shoulder [M25.511] [facility] Comment on above: Acute pain of right shoulder [M25.511] Start: 08-12-2024 End: 08-12-2024 ambulatory 08/12/2024 8:45 AM EST OT/PT/Speech Visit [facility] Therapy [address] [place] [address] KasRuby doe, [employer] [address] [place] [address] Acute pain of right shoulder [M25.511] [facility] Comment on above: Acute pain of right shoulder [M25.511] Start: 08-11-2024 Hepatitis B screening Urine Albumin:Creatinine Ratio [facility] Start: 08-11-2024 Hepatitis B surface antibody level LDL Cholesterol [facility] Start: 08-05-2024 End: 08-05-2024 ambulatory 08/05/2024 7:45 AM EDT OT/PT/Speech Visit [facility] Therapy [address] [place] [address] Storm Patel, PT [address] [place] [address] Acute pain of right shoulder [M25.511] [facility] Comment on above: Acute pain of right shoulder [M25.511] Start: 07-29-2024 End: 07-29-2024 ambulatory 07/29/2024 9:30 AM EDT OT/PT/Speech Visit [facility] [address] [place] [address] Storm Patel, PT [address] [place] [address] M25.511 (ICD-10-CM) - Acute pain of right shoulder [place] [facility] Physical Therapy Comment on above: M25.511 (ICD-10-CM) - Acute pain of righ t shoulder Start: 07-22-2024 End: 07-22-2024 ambulatory 07/22/2024 9:30 AM EDT OT/PT/Speech Visit [facility] [address] [place] [address] Storm Patel, PT [address] [place] [address] M25.511 (ICD-10-CM) - Acute pain of right shoulder [place] [facility] Physical Therapy Comment on above: M25.511 (ICD-10-CM) - Acute pain of righ t shoulder Start: 07-07-2024 3 comp foot exam completed Diabetic Foot Exam [place] [facility] [place] Start: 07-07-2024 Diabetic foot examination Diabetic Foot Exam [facility] [place] [facility] Start: 07-05-2024 End: 07-05-2024 ambulatory 07/05/2024 8:45 AM EDT OT/PT/Speech Visit [facility] [address] [place] [address] Ruby Cho, [employer] [address] [place] [address] M25.511 (ICD-10-CM) - Acute pain of right shoulder [facility] Comment on above: M25.511 (ICD-10-CM) - Acute pain of righ t shoulder Start: 06-28-2024 End: 06-28-2024 ambulatory 06/28/2024 8:00 AM EDT OT/PT/Speech Visit [facility] [address] [place] [address] Ruby Cho, [employer] [address] [place] [address] M25.511 (ICD-10-CM) - Acute pain of right shoulder [facility] Comment on above: M25.511 (ICD-10-CM) - Acute pain of righ t shoulder Start: 06-12-2024 End: 06-12-2024 ambulatory 06/12/2024 9:00 AM EDT OT/PT/Speech Visit [facility] [address] [facility] [place], [place] [id number] Storm Patel, PT [address] [facility] [place] [place] [address] Acute pain of right shoulder [M25.511] [facility] Comment on above: Acute pain of right shoulder [M25.511] Start: 06-09-2024 [facility] Start: 06-06-2024 End: 06-06-2024 Patient encounter procedure 06/06/2024 8:00 AM EDT Office Visit [facility] [address] [place], [place] [phone] Dominik Kelley APRN.MECHANICAL MANUFACTURING TECHNICIAN [address] [place], [place] [phone] [address] [facility] [facility] Comment on above: 6 month follow up Start: 05-21-2024 End: 08-20-2024 CBC W Auto Differential panel - Blood [facility] Comment on above: Expected: 05/21/2024, Expires: 4 Start: 05-21-2024 End: 08-20-2024 Comprehensive metabolic 2000 panel - Serum or Plasma [facility] Comment on above: Expected: 05/21/2024, Expires: 4 Start: 05-21-2024 End: 08-20-2024 Hemoglobin A1c in Blood [facility] Comment on above: Expected: 05/21/2024, Expires: 4 Start: 05-21-2024 End: 08-20-2024 LIPID PANEL, NONFASTING [facility] Comment on above: Expected: 05/21/2024, Expires: Start: 05-21-2024 End: 08-20-2024 Thyrotropin [Units/volume] in Serum or Plasma [facility] Comment on above: Expected: 05/21/2024, Expires: Start: 04-18-2024 End: 04-18-2024 Patient encounter procedure 04/18/2024 9:45 AM EDT Office Visit Endocrinology [address] [address] Torres Monaco, GHULAM.MECHANICAL MANUFACTURING TECHNICIAN [address] [address] 3m follow up Endocrinology Comment on above: 3m follow up Start: 04-17-2024 Hemoglobin A1c measurement HbA1C [facility] Start: 04-14-2024 ANNUAL PCP TEAM CHRONIC DISEASE VISIT ANNUAL PCP TEAM CHRONIC DISEASE VISIT [facility] Start: 04-10-2024 ANNUAL PCP TEAM CHRONIC DISEASE VISIT ANNUAL PCP TEAM CHRONIC DISEASE VISIT [facility] Start: 01-17-2024 Hemoglobin A1c measurement HbA1C [facility] Start: 01-10-2024 ANNUAL PCP TEAM CHRONIC DISEASE VISIT ANNUAL PCP TEAM CHRONIC DISEASE VISIT [facility] Start: 12-10-2023 Hepatitis C antibody, confirmatory test DILATED RETINAL EXAM [facility] Start: 12-08-2023 ANNUAL PCP TEAM CHRONIC DISEASE VISIT ANNUAL PCP TEAM CHRONIC DISEASE VISIT [facility] Start: 12-08-2023 Hepatitis B surface antibody level LDL CHOLESTEROL [facility] Start: 10-06-2023 Hemoglobin A1c/Hemoglobin.total in Blood HbA1C [facility] Start: 08-17-2023 ANNUAL PCP TEAM CHRONIC DISEASE VISIT ANNUAL PCP TEAM CHRONIC DISEASE VISIT [facility] Start: 08-11-2023 End: 10-11-2023 ALBUMIN/CREAT RATIO RND UR ALBUMIN/CREAT RATIO RND UR Lab Routine Type 2 diabetes mellitus without complication, without long-term current use of insulin (HCC) Expected: 08/11/2023, Expires: 10/11/2023 [facility] Work Phone: Comment on above: Expected: 08/11/2023, Expires: Start: 08-11-2023 ANNUAL PCP TEAM CHRONIC DISEASE VISIT ANNUAL PCP TEAM CHRONIC DISEASE VISIT [facility] Start: 08-11-2023 End: 10-11-2023 CBC W Auto Differential panel - Blood CBC + DIFF Lab Routine Type 2 diabetes mellitus without complication, without long-term current use of insulin (HCC) Expected: 08/11/2023, Expires: 10/11/2023 [facility] Work Phone: Comment on above: Expected: 08/11/2023, Expires: 4 Start: 08-11-2023 End: 10-11-2023 Comprehensive metabolic 2000 panel - Serum or Plasma COMP METABOLIC PANEL Lab Routine Migraine without aura and without status migrainosus, not intractable Type 2 diabetes mellitus without complication, without long-term current use of insulin (HCC) Expected: 08/11/2023, Expires: 10/11/2023 [facility] Work Phone: Comment on above: Expected: 08/11/2023, Expires: 4 Start: 08-11-2023 End: 10-11-2023 LIPID PANEL, NONFASTING LIPID PANEL, NONFASTING Lab Routine Dyslipidemia Expected: 08/11/2023, Expires: 10/11/2023 [facility] Work Phone: Comment on above: Expected: 08/11/2023, Expires: 4 Start: 08-11-2023 End: 10-11-2023 Urinalysis complete panel - Urine URINALYSIS, WITH MICROSCOPIC Lab Routine Type 2 diabetes mellitus without complication, without long-term current use of insulin (HCC) Expected: 08/11/2023, Expires: 10/11/2023 [facility] Work Phone: Comment on above: Expected: 08/11/2023, Expires: 4 Start: 06-09-2023 Covid-19 Vaccine () Covid-19 Vaccine () [facility] Start: 06-09-2023 Influenza vaccination INFLUENZA (#1) [facility] Start: 06-05-2023 Hepb vaccine adult 3 dose schedule for im use HEPATITIS B VACCINE, ADULT AGE 20+, IM Immunization/Injection Routine Need for vaccination Expected: 06/05/2023 (Approximate) [facility] Work Phone: Comment on above: Expected: 06/05/2023 (Approximate) Start: 06-04-2023 3 comp foot exam completed DIABETIC FOOT EXAM [facility] Start: 06-04-2023 ANNUAL PCP TEAM CHRONIC DISEASE VISIT ANNUAL PCP TEAM CHRONIC DISEASE VISIT [facility] Start: 06-04-2023 Hepatitis B screening URINE ALBUMIN:CREATININE RATIO [facility] Start: 06-04-2023 Hepatitis B surface antibody level LDL CHOLESTEROL [facility] Start: 04-28-2023 Hemoglobin A1c/Hemoglobin.total in Blood HBA1C [facility] Start: 04-15-2023 Patient discharge [facility] Start: 04-14-2023 Application of intermittent pneumatic compression device [facility] Start: 04-14-2023 Following clinical pathway protocol [facility] Start: 04-14-2023 [facility] Start: 04-14-2023 Admission procedure [facility] Start: 04-14-2023 Incision and drainage of perirectal abscess Incision & Drainage of Tressa-Rectal Absce (Not Applicable) [facility] Start: 04-14-2023 Anaerobic Culture Anaerobic Culture [facility] Start: 04-14-2023 Microbial culture, routine Wound Culture [facility] Start: 03-04-2023 3 comp foot exam completed [facility] Start: 01-19-2023 Hemoglobin A1c/Hemoglobin.total in Blood HBA1C [facility] Start: 12-18-2022 HEPATITIS B (3 of 3 - 19+ 3-dose series) HEPATITIS B (3 of 3 - 19+ 3-dose series) [facility] Start: 12-07-2022 End: 02-06-2023 LIPID PANEL, NONFASTING [facility] Work Phone: Comment on above: Expected: 12/07/2022, Expires: Start: 12-06-2022 Hepb vaccine adult 3 dose schedule for im use HEPATITIS B VACCINE, ADULT AGE 20+, IM Immunization/Injection Routine Expected: 12/06/2022 [facility] Work Phone: Comment on above: Expected: 12/06/2022 Start: 12-01-2022 Hepatitis C antibody, confirmatory test DILATED RETINAL EXAM [facility] Start: 10-15-2022 ANNUAL PCP TEAM CHRONIC DISEASE VISIT ANNUAL PCP TEAM CHRONIC DISEASE VISIT [facility] Start: 10-06-2022 COVID-19 Vaccine (3 - Booster for Ling series) COVID-19 Vaccine (3 - Booster for Ling series) [facility] Start: 09-30-2022 HEPATITIS B (3 of 3 - 3-dose series) HEPATITIS B (3 of 3 - 3-dose series) [facility] Start: 09-04-2022 Hemoglobin A1c/Hemoglobin.total in Blood HBA1C [facility] Start: 08-16-2022 Colonoscopy COLONOSCOPY [facility] Start: 08-16-2022 COLORECTAL CANCER SCREENING COLORECTAL CANCER SCREENING [facility] Start: 07-08-2022 HEPATITIS B (2 of 3 - 3-dose series) HEPATITIS B (2 of 3 - 3-dose series) [facility] Start: 07-07-2022 Hepb vaccine adult 3 dose schedule for im use HEPATITIS B VACCINE, ADULT AGE 20+, IM Immunization/Injection Routine Expected: 07/07/2022 [facility] Work Phone: Comment on above: Expected: 07/07/2022 Start: 06-09-2022 Influenza vaccination [facility] Start: 06-04-2022 End: 08-04-2022 ALBUMIN/CREAT RATIO RND UR ALBUMIN/CREAT RATIO RND UR Lab Routine Type 2 diabetes mellitus without complication, without long-term current use of insulin (HCC) Expected: 06/04/2022 (Approximate), Expires: 08/04/2022 [facility] Work Phone: Comment on above: Expected: 06/04/2022 (Approximate), Expi res: 08/04/2022 Start: 06-04-2022 End: 08-04-2022 Comprehensive metabolic 2000 panel - Serum or Plasma COMP METABOLIC PANEL Lab Routine Type 2 diabetes mellitus without complication, without long-term current use of insulin (HCC) Expected: 06/04/2022 (Approximate), Expires: 08/04/2022 [facility] Work Phone: Comment on above: Expected: 06/04/2022 (Approximate), Expi res: 08/04/2022 Start: 06-04-2022 End: 08-04-2022 Hemoglobin A1c/Hemoglobin.total in Blood [facility] Work Phone: Comment on above: Expected: 06/04/2022 (Approximate), Expi res: 08/04/2022 Start: 06-04-2022 End: 08-04-2022 LIPID PANEL BASIC LIPID PANEL BASIC Lab Routine Type 2 diabetes mellitus without complication, without long-term current use of insulin (HCC) Dyslipidemia Expected: 06/04/2022 (Approximate), Expires: 08/04/2022 [facility] Work Phone: Comment on above: Expected: 06/04/2022 (Approximate), Expi res: 08/04/2022 Start: 06-04-2022 End: 08-04-2022 Thyrotropin [Units/volume] in Serum or Plasma TSH BLD Lab Routine Type 2 diabetes mellitus without complication, without long-term current use of insulin (HCC) Expected: 06/04/2022 (Approximate), Expires: 08/04/2022 [facility] Work Phone: Comment on above: Expected: 06/04/2022 (Approximate), Expi res: 08/04/2022 Start: 12-22-2021 3 comp foot exam completed DIABETIC FOOT EXAM [facility] Start: 12-22-2021 Hepatitis B screening URINE ALBUMIN:CREATININE RATIO [facility] Start: 12-22-2021 Hepatitis B surface antibody level LDL CHOLESTEROL [facility] Start: 10-13-2021 COVID-19 VACCINE (3 - Booster for Ling series) COVID-19 VACCINE (3 - Booster for Ling series) [facility] Start: 06-24-2021 Hemoglobin A1c/Hemoglobin.total in Blood HBA1C [facility] Start: 06-09-2021 Influenza vaccination INFLUENZA (#1) [facility] Start: 12-14-2019 COLOGUARD (FIT-DNA) COLOGUARD (FIT-DNA) [facility] Start: 12-14-[address] COLONOGRAPHY [facility] Start: 12-14-2019 FECAL OCCULT BLOOD FECAL OCCULT BLOOD [facility] Start: 12-14-2019 Screening for malignant neoplasm of colon [facility] Start: 12-14-2019 SIGMOIDOSCOPY SIGMOIDOSCOPY [facility] Start: 1993 HEPATITIS B (1 of 3 - Risk 3-dose series) HEPATITIS B (1 of 3 - Risk 3-dose series) [facility] Start: 1992 HEPATITIS C SCREENING HEPATITIS C SCREENING [facility] Start: 1992 Hepatitis C screening Hepatitis C Screening [facility] Start: 1992 HIV SCREENING HIV SCREENING [facility] Start: 12-14-1975 MMR Vaccines (1 of 1 - Standard series) MMR Vaccines (1 of 1 - Standard series) [facility] Start: 1974 HEPATITIS B (1 of 3 - 3-dose series) HEPATITIS B (1 of 3 - 3-dose series) [facility] Start: 1974 HIV screening HIV Screening [facility] Start: 1974 Lipid panel Lipid Panel [facility] Start: 1974 Screening for malignant neoplasm of colon [facility] Start: 1974 Yearly Adult Physical Yearly Adult Physical [facility] Bacteria identified in Unspecified specimen by Anaerobe culture [facility] CYTOLOGY NON-BILINGUAL [employer] CYTOLOGY NON-GY N Lab Routine Multiple thyroid nodules 01/31/2024 2:19 PM EDT [facility] Work Phone: End: 03-06-2026 Echocardiography ECHO Cardiology Routine Tachycardia Lightheadedness 1 Occurrences starting 03/06/2025 until 03/06/2026 [facility] Work Phone: Comment on above: 1 Occurrences starting 03/06/2025 until 03/06/2026 Esophageal motility study w/interp&rpt ESOPHAGEAL MANOMETRY Gastroesophageal reflux disease, unspecified whether esophagitis present Esophageal dysphagia [facility] End: 03-10-2026 Flexible sigmoidoscopy study COLONOSCOPY DIAGNOSTIC Endoscopy Routine Anemia, unspecified type 1 Occurrences starting 03/10/2025 until 03/10/2026 [facility] Work Phone: Comment on above: 1 Occurrences starting 03/10/2025 until 03/10/2026 Hepb vaccine adult 3 dose schedule for im use HEPATITIS B VACCINE, ADULT AGE 20+, IM Immunization/Injection Routine Ordered: 06/06/2022 [facility] Work Phone: Comment on above: Ordered: 06/06/2022 End: 02-06-2026 Manometry Study observation Narrative MANOMETRY ESOPHAGEAL Endoscopy Routine Esophageal dysphagia 1 Occurrences starting 02/06/2025 until 02/06/2026 [facility] Comment on above: 1 Occurrences starting 02/06/2025 until 02/06/2026 End: 12-22-2025 MG Breast - bilateral Diagnostic FIGUEROA DIAGNOSTIC BILATERAL Radiology Routine Subareolar mass of right breast 1 Occurrences starting 11/22/2024 until 12/22/2025 [facility] Comment on above: 1 Occurrences starting 11/22/2024 until 12/22/2025 End: 12-26-2025 MR Brain WO and W contrast IV MRI BRAIN WO/W IVCON Radiology Routine Gynecomastia, male Low testosterone in male Elevated prolactin level 1 Occurrences starting 11/26/2024 until 12/26/2025 [facility] Work Phone: Comment on above: 1 Occurrences starting 11/26/2024 until 12/26/2025 End: 02-05-2026 MR Pituitary and Sella turcica WO and W contrast IV MRI PITUITARY WO/W IVCON Radiology Routine Abnormal brain MRI 1 Occurrences starting 01/06/2025 until 02/05/2026 [facility] Comment on above: 1 Occurrences starting 01/06/2025 until 02/05/2026 End: 01-19-2026 MR Shoulder - right WO contrast MRI SHOULDER WO IVCON RIGHT Radiology Routine Acute pain of right shoulder 1 Occurrences starting 12/20/2024 until 01/19/2026 [facility] Work Phone: Comment on above: 1 Occurrences starting 12/20/2024 until 01/19/2026 MR Shoulder - right WO contrast MRI SHOULDER WO IVCON RIGHT Radiology Routine Acute pain of right shoulder 01/04/2025 9:08 AM EDT [facility] Work Phone: OUTSIDE VENDOR CARDI AC OUTPATIENT EXTENDED RHYTHM RECORDING (WITHOUT TELEMETRY) OUTSIDE VENDOR CARDIAC OUTPATIENT EXTENDED RHYTHM RECORDING (WITHOUT TELEMETRY) Holter Routine Tachycardia Lightheadedness Ordered: 03/06/2025 [facility] Comment on above: Ordered: 03/06/2025 PAIN PANEL, UR QUANT PAIN PANEL, UR QUANT Lab Routine Attention 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 Medication management 12/07/2022 10:21 AM [facility] Work Phone: PAIN PANEL, UR QUANT PAIN PANEL, UR QUANT Lab Routine Attention 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 Medication management 12/07/2022 10:22 AM [facility] Work Phone: PAIN PANEL, UR QUANT PAIN PANEL, UR QUANT Lab Routine Attention 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 Medication management 08/19/2024 3:53 PM [facility] Work Phone: PAIN PANEL, UR QUANT PAIN PANEL, UR QUANT Lab Routine Attention 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 Medication management 08/19/2024 3:53 PM [facility] Patient referral [facility] Work Phone: End: 03-08-2026 RF Gastrointestinal tract upper Views W air contrast PO and W barium contrast PO XR UPPER GI ROUTINE DOUBLE CONTRAST/AIR Radiology Routine Gastroesophageal reflux disease, unspecified whether esophagitis present 1 Occurrences starting 02/06/2025 until 03/08/2026 [facility] Work Phone: Comment on above: 1 Occurrences starting 02/06/2025 until 03/08/2026 SPECIMEN VALIDITY, URINE SPECIME N VALIDITY, URINE Lab Routine Attention 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 Medication management 12/07/2022 10:21 AM [facility] Work Phone: SPECIMEN VALIDITY, URINE SPECIME N VALIDITY, URINE Lab Routine Attention 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 Medication management 08/19/2024 3:54 PM [facility] TOXICOLOGY SCREEN, R OUTINE URINE TOXICOLOGY SCREEN, ROUTINE URINE Lab Routine Attention 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 Medication management 08/19/2024 3:53 PM [facility] US Abdomen RUQ US ABD RIGHT UPP ER QUADRANT Radiology Routine Elevated alkaline phosphatase level 10/25/2024 7:58 AM [facility] Work Phone: End: 12-22-2025 US Breast - right limited US BREAST LTD RIGHT Radiology Routine Subareolar mass of right breast 1 Occurrences starting 11/22/2024 until 12/22/2025 [facility] Comment on above: 1 Occurrences starting 11/22/2024 until 12/22/2025 End: 03-06-2026 US Carotid arteries - bilateral US CAROTID ARTERIES [facility] V[facility] Lab Routine Tachycardia Lightheadedness 1 Occurrences starting 03/06/2025 until 03/06/2026 [facility] Comment on above: 1 Occurrences starting 03/06/2025 until 03/06/2026 End: 08-05-2024 US Thyroid gland US THYROID/PARATHYROID Radiology Routine Multiple thyroid nodules 1 Occurrences starting 07/07/2023 until 08/05/2024 [facility] Work Phone: Comment on above: 1 Occurrences starting 07/07/2023 until 08/05/2024 US Thyroid gland US THYROID/PARA THYROID Radiology Routine Multiple thyroid nodules 01/19/2024 3:53 PM EDT [facility] Work Phone: End: 06-20-2025 XR Shoulder - right 3 Views XR SHOULDER GENERAL 3V OR MORE AP/TRUE AP/OTHER RIGHT Radiology Routine Acute pain of right shoulder 1 Occurrences starting 05/21/2024 until 06/20/2025 [facility] Work Phone: Comment on above: 1 Occurrences starting 05/21/2024 until 06/20/2025 XR Shoulder - right 3 Views XR SHOULDER GENERAL 3V OR MORE AP/TRUE AP/OTHER RIGHT Radiology Routine Acute pain of right shoulder 05/21/2024 4:17 PM EDT [facility] Immunizations Immunization Date Immunization Notes Care Provider Randee hale 06-29-2024 COVID-19 vaccine, unspecified formulation Storm Patel PT Work Phone: [facility] 06-29-2024 influenza virus vacc ine, unspecified formulation Storm Golias PT Work Phone: [facility] 12-06-2023 COVID-19 vaccine, ag e 12+ yr, 2022- season (First Coverage-BIONTECH) Humberto Jackson MD Work Phone: [facility] 12-06-2023 pneumococcal conjuga te (PCV20) vaccine, 20 valent (PREVNAR 20) Humberto Jackson MD Work Phone: [facility] 12-06-2023 pneumococcal Conjuga te, unspecified formulation Humberto Jackson MD Work Phone: [facility] Work Phone: 07-07-2023 influenza, injectabl e, quadrivalent, contains preservative Torres Monaco APRN.MECHANICAL MANUFACTURING TECHNICIAN Work Phone: [facility] 07-07-2023 influenza virus vacc ine, unspecified formulation Humberto Jackson MD Work Phone: [facility] 12-07-2022 hepatitis B vaccine, adult dosage Humberto Jackson MD Work Phone: [facility] 08-11-2022 COVID-19 booster vaccine, age 12+ yr, bivalent (PFIZER-BIONTECH) Kenyatta Castaneda PA-C Work Phone: [facility] 08-11-2022 influenza, injectabl e, quadrivalent, contains preservative Kenyatta Castaneda PA-C Work Phone: [facility] 07-20-2022 hepatitis B vaccine, adult dosage Md Nurse Work Phone: [facility] Work Phone: 07-20-2022 hepatitis B vaccine, unspecified formulation Mi Nurse Work Phone: [facility] 06-10-2022 hepatitis B vaccine, adult dosage Mi Nurse Work Phone: [facility] Work Phone: 06-10-2022 hepatitis B vaccine, unspecified formulation Md Nurse Work Phone: [facility] 04-13-2021 tetanus toxoid, redu minda diphtheria toxoid, and acellular pertussis vaccine, adsorbed Humberto Jackson MD Work Phone: [facility] 12-14-2020 COVID-19 vaccine (LING) Humberto Jackson MD Work Phone: [facility] 08-07-2020 Influenza, injectabl e, Madin Maxine Canine Kidney, quadrivalent with preservative Xr [place] Work Phone: [facility] 06-28-2019 influenza, injectabl e, quadrivalent, contains preservative Humberto Jackson MD Work Phone: [facility] 08-21-2018 influenza, injectabl e, quadrivalent, preservative free Humberto Jackson MD Work Phone: [facility] 07-27-[address] Humberto Jackson Work Phone: [facility] 07-28-2017 influenza, injectabl e, quadrivalent, contains preservative Humberto Jackson MD Work Phone: [facility] 07-09-[address] Humberto Jackson Work Phone: [facility] 07-09-2017 influenza, seasonal, injectable Humberto Jackson MD Work Phone: [facility] 01-27-2017 pneumococcal polysaccharide vaccine, 23 valent Humberto Jackson MD Work Phone: [facility] 09-11-2015 pneumococcal conjuga te vaccine, 13 valent Humberto Jackson MD Work Phone: [facility] Work Phone: 07-23-2015 influenza, injectabl e, quadrivalent, contains preservative Humberto Jackson MD Work Phone: [facility] 09-03-2014 influenza, seasonal, injectable Humberto Jackson MD Work Phone: [facility] Work Phone: 01-27-2011 tetanus toxoid, redu minda diphtheria toxoid, and acellular pertussis vaccine, adsorbed Humberto Jackson MD Work Phone: [facility] Payers Date Payer Category Payer Self-pay [id number] 2020 [employer] Blue [employer] BLUE ACCE PPO [id number] 2020 Unknown ABDULAZIZ CHAVEZ ACCE SS PPO [id number] 2020-Present [phone] [place] [address] PPO [id number] 2020 Unknown [id number] 2020 Unknown [id number] 1974 Unknown [id number] Private Health Insurance Private Health Insurance [employer] [id number] Unknown [id number] Unknown [id number] Unknown [id number] Unknown [id number] Unknown [id number] Unknown [id number] Unknown [id number] Unknown [id number] Social History Date Type Detail Facility Start: 05-12-2015 End: 06-04-2022 Tobacco smoking status NHIS Never smoked tobacco [facility] Start: 10-15-2021 End: 03-06-2025 Alcohol intake Current drinker of alcohol (finding) [facility] Start: 03-24-2020 History SDOH Alcohol Frequency 4 [facility] Start: 03-24-2020 End: 08-11-2022 History SDOH Alcohol Std Drinks 1 [facility] Start: 05-12-2015 History SDOH Alcohol Comment Rarely [facility] Start: 02-11-2020 End: 08-11-2022 History SDOH Social Connections Membership 2 [facility] Start: 02-11-2020 End: 06-04-2022 History SDOH Social Connections Living 3 [facility] Start: 02-11-2020 End: 06-04-2022 History SDOH Physical Activity DPW 0 [facility] Start: 03-24-2020 End: 06-04-2022 History SDOH Financial 5 [facility] Start: 02-10-2020 Education 21 [facility] Start: 1975 Sex Assigned At Male [facility] Start: 09-20-2020 End: 10-27-2023 Exposure to SARS-CoV-2 (event) Not sure [facility] Start: 04-09-2022 End: 04-19-2022 Exposure to SARS-CoV-2 (event) Unable to assess [facility] Start: 05-12-2015 End: 06-04-2022 Tobacco use and exposure Smokeless tobacco non-user [facility] Start: 04-14-2023 Tobacco smoking status NHIS Unknown if ever smoked [facility] Start: 10-11-2017 None [facility] Start: 10-11-2017 Spouse/ Significant Other [facility] Start: 10-11-2017 Non-smoker [facility] Start: 06-03-2022 End: 04-10-2023 History of Social function [facility] Start: 06-03-2022 End: 04-10-2023 Social connection and isolation panel [facility] Do you belong to any clubs or organizations such as oriental orthodox groups, unions, fra28msec or athletic groups, or school groups? Yes [facility] Are you now , , , , never or living with a partner? [facility] How often to you hav e a drink containing alcohol? 2-4 times a month [facility] How many standard dr inks containing alcohol do you have on a typical day? 1 or 2 [facility] How often do you hav e 6 or more drinks on 1 occasion? Never [facility] How hard is it for y ou to pay for the very basics like food, housing, medical care, and heating Not hard at all [facility] Do you feel stress - tense, restless, nervous, or anxious, or unable to sleep at night because your mind is troubled all the time - these days [OSQ] Only a little [facility] (I/We) worried wheth er (my/our) food would run out before (I/we) got money to buy more. Never true [facility] In the past 12 month s, was there a time when you were not able to pay the mortgage or rent on time? No [facility] Start: 02-10-2020 Gender identity Identifies as male gender (finding) [facility] Start: 02-10-2020 Sexual orientation Heterosexual (finding) [facility] Start: 1975 Sex Assigned At Not on file [facility] Work Phone: How often to you hav e a drink containing alcohol? Monthly or less [facility] How hard is it for y ou to pay for the very basics like food, housing, medical care, and heating Somewhat hard [facility] Do you feel stress - tense, restless, nervous, or anxious, or unable to sleep at night because your mind is troubled all the time - these days [OSQ] To some extent [facility] How often to you hav e a drink containing alcohol? 2-3 time sa week [facility] Medical Equipment Procedure Code Equipment Code Equipment Original Text Equipment Identifier Dates [id number], [id number], [id number], [id number] Start: 01-27-2017 End: 10-18-2023 Comment on above: [...] 1 03/06/20 6:43 AM EDT User, Mychart [facility] 03-06-2025 How often to you hav e a drink containing alcohol? Monthly or less 03/06/2025 6:43 AM EDT User, Mychart Monthly or less [facility] 03-06-[address] inks containing alcohol do you have on a typical day? 1 or 2 03/06/2025 6:43 AM EDT User, Mychart 1 or 2 [facility] 03-06-2025 How often do you hav e 6 or more drinks on 1 occasion? Never 03/06/2025 6:43 AM EDT User, Mychart Never [facility] 01-11-2025 IGF-I Z-score SerPl -1.2 [facility] Comment on above: Order Comment: Speci men Type: BLOOD SPECIMEN [facility] Address: [address] [place] [address] Performed By: #### I LGF1 #### [facility] CLIA [id number] [address] [place] [address] [place] [address] [place] 09-28-2023 Are you deaf, or do you have serious difficulty hearing No 09/28/2023 10:53 AM Diamond Sheppard RN No [facility] 09-28-2023 Are you blind, or do you have serious difficulty seeing, even when wearing glasses No 09/28/2023 10:53 AM Diamond Sheppard RN No [facility] 09-28-2023 Do you have serious difficulty walking or climbing stairs No 09/28/2023 10:53 AM Diamond Sheppard RN No [facility] 09-28-2023 Do you have difficul ty dressing or bathing No 09/28/2023 10:53 AM Diamond Sheppard RN No [facility] 09-28-2023 Because of a physica l, mental, or emotional condition, do you have difficulty doing errands alone such as visiting a physician's office or shopping No 09/28/2023 10:53 AM Diamond Sheppard RN No [facility] 04-15-2023 Functional status Bedrest [facility] Work Phone: Mental Status Date Assessment Result Facility 09-28-2023 Because of a physica l, mental, or emotional condition, do you have serious difficulty concentrating, remembering, or making decisions No 09/28/2023 10:53 AM Diamond Sheppard RN No [facility] 04-15-2023 Cognitive function Voice/Name [facility] Work Phone: Clinical Notes 10-20-2020 to 03-10-2025 Telephone Encounter - Carmelo Lopez LPN - 03/10/2025 12:57 PM EDTTelephone Encounter - Carmelo Lopez LPN - 03/10/2025 12:57 PM JAQUELINETBNelda torres APRN.CHRISTOPHER - 03/10/2025 8:30 AM EDT Note Date & Type Note Facility 03-10-2025 Telephone encounter Note Patient notified of results and provider's instructions. Patient verbalizes understanding. Carmelo Lopez LPN [facility] 03-10-2025 Miscellaneous Notes Patient notified of [...] Lois Alberts LPN documented in this encounter [facility] 03-10-2025 Telephone encounter Note Pt notified of results and instructions. Pt verbalizes understanding./ Carmelo Lopez LPN [facility] 03-10-2025 Miscellaneous Notes Pt notified of results and instructions. Pt verbalizes understanding./ Carmelo Lopez LPN Let patient know his b12 is also borderline low. Start OTC b12 1000mcg daily. documented in this encounter [facility] 03-10-2025 Telephone encounter Note Let patient know his b12 is also borderline low. Start OTC b12 1000mcg daily. [facility] 03-10-2025 Telephone encounter Note Start iron supplement. I will send in. But also needs the further work up we discussed to see if any blood loss from colon. Repeat labs in 1-2 weeks to trend levels to make sure not worsening. Kenyatta Castaneda PA-C [facility] 03-10-2025 Telephone encounter Note Pt is [...] (L) Low (H) High Lois Alberts LPN [facility] 03-10-2025 History of Present illness Narrative HISTORY AND PHYSICAL Bianca Delarosa : 1975 REFERRING PHYSICIAN: Kenyatta Castaneda [address] [facility] [address] CHIEF COMPLAINT: Patient presents with: low hgb: [...] GERD and dysphasia with Dr. Bowman at [facility] on 04/04- she does not complete [...] colonoscopy was 08/[address] Bliss at [facility]. Sedation: Midazolam 7 mg IV, Fentanyl 100 [...] mL for a 90 day supply. 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 [...] edited and updated as necessary. Nelda Quigley APRN.MECHANICAL MANUFACTURING TECHNICIAN documented in this encounter [facility] 03-10-2025 Note HNO ID: [id number] Author: NELDA QUIGLEY APRN.MECHANICAL MANUFACTURING TECHNICIAN Service: ? Author Type: Nurse Practitioner Type: Progress Notes Filed: 03/10/2025 09:21 Note Text: HISTORY AND PHYSICAL Bianca Saenz [place] : 1975 REFERRING PHYSICIAN: Kenyatta Castaneda [address] [facility] [address] CHIEF COMPLAINT: Patient presents with: low hgb: [...] GERD and dysphasia with Dr. Bowman at [facility] on 04/04- she does not complete [...] colonoscopy was 08/[address] Bliss at [facility]. Sedation: Midazolam 7 mg IV, Fentanyl 100 [...] mL for a 90 day supply. 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 [facility] 03-07-2025 Telephone encounter Note Pt notified of Kenyatta's message. Pt verbalizes understanding. Pt states he is ok not having the procedures on the same day. Pt was assisted in transfer to schedule surgical consult. Carmelo Lopez LPN [facility] 03-07-2025 Miscellaneous Notes Pt notified of [...] EGD. He may want to go to [facility] to see if this is possible though. [...] Kenyatta Castaneda PA-C documented in this encounter [facility] 03-07-2025 Telephone encounter Note I reached out to Dr. Bowman, she no longer does colonoscopies, but I think he should get one. I also still want him to see her for the EGD. But I will add a consult to [facility] surgery specific for colonoscopy. I'm not sure if it's possible for Dr. Bowman's office to coordinate a colonoscopy to be done during the same visit as her EGD. He may want to go to [facility] to see if this is possible though. Thanks. Kenyatta Castaneda PA-C [facility] 03-07-2025 Telephone encounter Note Patient notified of results and provider's instructions. Patient verbalizes understanding. Patient does have EGD scheduled on 03/27/2025. Patient does not have a colonoscopy scheduled. Last Colonoscopy done 08/30/2022. Juhi Murillo RN [facility] 03-07-2025 Telephone encounter Note Left message for patient to contact office. Tam Daugherty MA [facility] 03-07-2025 Telephone encounter Note Let patient know that he is anemic. This is possibly contributing to his symptoms. Need additional labs and need to see gen surgery for anemia work up. Is he currently scheduled for EGD? Colonoscopy too? Kenyatta Castaneda PA-C [facility] 03-06-2025 Instructions Kenyatta Castaneda PA-C - [...] Holter monitor) for two weeks: call the [employer] to confirm your insurance coverage, apply the patch per their instructions, and mail it back when prompted. Notify our office if you encounter any insurance issues. - Monitor your heart rate and dizziness closely. After you ve stopped Focalin and completed the tests above, let us know whether your symptoms have improved so we can determine next steps. documented in this encounter [facility] 03-06-2025 Note HNO ID: [id number] Author: KENYATTA CASTANEDA PA-C Service: ? Author Type: Physician Director [employer] Type: Progress Notes Filed: 03/06/2025 07:50 Note [...] Primary insomnia 07/28/2020 QT prolongation 04/20/2021 Seen [facility] 04/19/2021: Camargo to be benign and related to anti-depressants. [...] Family History Mariana (more content not included)... [facility] 03-06-2025 History of Present illness Narrative Chief [...] Primary insomnia 07/28/2020 QT prolongation 04/20/2021 Seen [facility] 04/19/2021: Camargo to be benign and related to anti-depressants. [...] mL for a 90 day supply. Insulin Potwin, Disposable, (DROPLET PEN NEEDLE) 31 gauge x [...] the plan. Kenyatta Castaneda PA-C Recording using [employer] Enterprise PHP Business Plan software for draft documentation of the visit was discussed with the patient/authorized labor service representative; all questions welcomed and answered. Patient/authorized labor service representative agreed to proceed documented in this encounter [facility] 02-24-2025 Note HNO ID: [id number] Author: VIKASH BOOTH MD Service: ? 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 [...] once daily for (more content not included)... [facility] 02-24-2025 History of Present illness Narrative Images from the original note were not included. ORTHOPAEDIC SHOULDER & ELBOW SERVICE HISTORY & PHYSICAL EXAM REFERRING PROVIDER: Elizabeth Suárez [address] [place] [address] CHIEF COMPLAINT: Bianca is a 49-year-old male [...] Acute hypoxemic respiratory failure due to COVID-19 ([facility]) 09/24/2023 Agitation 03/31/2014 Allergic rhinitis 03/31/2014 Allergy-induced asthma ([facility]) 03/31/2014 Mild intermitant Attention deficit disorder [...] Primary insomnia 07/28/2020 QT prolongation 04/20/2021 Seen [facility] 04/19/2021: Camargo to be benign and related to anti-depressants. [...] capsule by mouth once daily. Blood-Glucose Sensor (RallywareSTYLE EVERT 3 SENSOR) agnes USE ONE SENSOR [...] mL for a 90 day supply. Insulin Potwin, Disposable, (DROPLET PEN NEEDLE) 31 gauge x [...] & Elbow Surgeon Department of Orthopaedic Surgery [facility] documented in this encounter [facility] 02-18-2025 Telephone encounter Note Images from the original note were not included. Most recent Endocrinology visit: Last encounter Visit on 02/06/2025 (with Jana Babcock) JULIO: 01/17/24--with Torres for diabetes NOV: 04/30/25-with Torres for diabetes 07/07/2023 in [facility] with TORRES MONACO for Type 2 diabetes mellitus without complication, without long-term current use of insulin (HCC) 10/18/2023 in [facility] with TORRES MONACO for Type 2 diabetes mellitus without complication, without long-term current use of insulin (HCC) 01/17/2024 in [facility] with TORRES MONACO for Type 2 diabetes mellitus without complication, without long-term current use of insulin (HCC) [facility] with JANA BABCOCK for Upcoming Endocrinology Appointments - Next 365 Days Visit Type Date Time Department EST LIZ PATIENT 04/30/2025 11:30 AM [facility] Requested Prescriptions Pending Prescriptions Disp Refills [...] Prolactin 4.1 - 25.1 ng/mL 39.1 41.2 [facility] 02-18-2025 Miscellaneous Notes Images from the original note were not included. Most recent Endocrinology visit: Last encounter Visit on 02/06/2025 (with Jana Babcock) JULIO: 01/17/24--with Torres for diabetes NOV: 04/30/25-with Torres for diabetes 07/07/2023 in [facility] with TORRES MONACO for Type 2 diabetes mellitus without complication, without long-term current use of insulin (HCC) 10/18/2023 in [facility] with TORRES MONACO for Type 2 diabetes mellitus without complication, without long-term current use of insulin (HCC) 01/17/2024 in [facility] with TORRES MONACO for Type 2 diabetes mellitus without complication, without long-term current use of insulin (HCC) 02/06/[address] [facility] with JANA BABCOCK for Upcoming Endocrinology Appointments - Next 365 Days Visit Type Date Time Department EST LIZ PATIENT 04/30/2025 11:30 AM [facility] Requested Prescriptions Pending Prescriptions Disp Refills [...] ng/mL 39.1 41.2 documented in this encounter [facility] 02-12-2025 Telephone encounter Note Insurance Verification Insurance Company: [employer] Provider Phone #: [phone] Agent: Nitesh Effective Date: 10/09/20 Call Reference #: [id number] EXCLUDED [facility] 02-12-2025 Miscellaneous Notes Insurance Verification Insurance Company: [employer] Provider Phone #: [phone] Agent: Nitesh Effective Date: 10/09/20 Call Reference #: [id number] EXCLUDED documented in this encounter [facility] 02-06-2025 Telephone encounter Note The following [...] was identified. 02/06/2025 by Humberto Jackson MD [facility] 02-06-2025 Miscellaneous Notes The following approved [...] identified. 02/06/2025 by Humberto Jackson MD See [employer] message. Tia Ibarra MA documented in this encounter [facility] 02-06-2025 Telephone encounter Note See [employer] message. Tia Ibarra MA [facility] 02-06-2025 Note HNO ID: [id number] Author: JANA BABCOCK MD Service: ? Author Type: Physician Type: Progress Notes Filed: 03/03/2025 07:04 Note Text: Endocrinology/Initial Pituitary Assessment Note: Patient is being evaluated today via a Virtual Visit using a HIPPA compliant platform, zoom via [employer]. It required patient-provider interaction for the medical decision making as documented below. Patient consented to treatment I have communicated my name and active licensure. The patient's identity and physical location were verified at the time of this visit. Either the patient or their legal labor service representative has been informed of the risks and benefits of -- and alternatives to -- treatment through a remote evaluation and consents to proceed with the evaluation remotely. History of Present Illness: Mr. 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 [facility] 02-06-2025 History of Present illness Narrative Images from the original note were not included. Endocrinology/Initial Pituitary Assessment Note: Patient is being evaluated today via a Virtual Visit using a HIPPA compliant platform, zoom via [employer]. It required patient-provider interaction for the medical decision making as documented below. Patient consented to treatment I have communicated my name and active licensure. The patient's identity and physical location were verified at the time of this visit. 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 [...] capsule by mouth once daily. Blood-Glucose Sensor (RallywareSTYLE EVERT 3 SENSOR) agnes USE ONE SENSOR [...] mL for a 90 day supply. Insulin Potwin, Disposable, (DROPLET PEN NEEDLE) 31 gauge x [...] DATE OF EXAM: Dec 11 2024 10:59AM [facility] 0295 - MRI BRAIN WO/W [...] reflect an underlying lesion/adenoma or pituitary hyperplasia. Utility Mechanic: GORGE Transcribe Date/Time: Dec 11 2024 11:13A [...] the diagnosis of pituitary hypertrophy is largely [id number]. Thus, pituitary enlargement (pituitary height >=9?mm, or [...] to make your follow up visit. Call [facility] Appointments [phone] to make follow up Endocrinology visit in [...] which included preparing to see the patient, [id number] patient care, completing clinical documentation, obtaining and/or [...] SERVICE: 2:22 PM documented in this encounter [facility] 02-06-2025 Note HNO ID: [id number] Author: CIRO FARMER RN Service: ? Author Type: Nurse Clinician Type: Progress Notes Filed: 02/06/2025 08:59 Note Text: Patient given written information about manometry, EGD and Patino pH probe and the prep instructions. Verbally discussed and reviewed the information with the patient. All of patient's questions were answered. 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 [...] mL for a 90 day supply. Insulin Potwin, Disposable, (DROPLET PEN NEEDLE) 31 gauge x [...] 06, 2025 TIME: 8:02 AM PAGER/CONTACT #: [id number] Patient states he has a lot of sharp, burning pain. He will have reflux up into his mouth when he lays down, increased belching. Last egd was over 10 years ago. Sally Baird MA documented in this encounter [facility] 02-06-2025 Note Addended by: AMBER RAPHAEL on: 02/06/2025 08:44 AM Modules accepted: Orders [facility] Work Phone: 02-06-2025 Miscellaneous Notes Addended by: AMBER RAPHAEL on: 02/06/2025 08:44 AM Modules accepted: Orders documented in this encounter [facility] 02-06-2025 Note HNO ID: [id number] Author: LISSY BOWMAN MD Service: ? Author [...] prolongation 04/20/2021 Seen [facility] 04/19/2021: Camargo to be benign and related to anti-depressants. [...] Alcohol use: Yes (more content not included)... [facility] 02-06-2025 Note HNO ID: [id number] Author: SALLY BAIRD MA Service: ? Author Type: Parts Analyst Type: Progress Notes Filed: 02/06/2025 08:33 Note Text: Patient states he has a lot of sharp, burning pain. He will have reflux up into his mouth when he lays down, increased belching. Last egd was over 10 years ago. Sally Baird MA [facility] 01-21-2025 Instructions Humberto Jackson MD - 01/21/2025 11:41 AM EDT Remember to do the non-fasting lab work for anemia on or after 01/30/2025 documented in this encounter [facility] 01-21-2025 History of Present illness Narrative [...] on had a URI, fevers and chills. Camargo ok yesterday but feeling winded with activity. [...] Primary insomnia 07/28/2020 QT prolongation 04/20/2021 Seen [facility] 04/19/2021: Camargo to be benign and related to anti-depressants. [...] mL for a 90 day supply. Insulin Potwin, Disposable, (DROPLET PEN NEEDLE) 31 gauge x [...] cont current meds. - consult heartburn center [facility]: Dr. Bowman 3. Belching - ICD9: [...] Humberto Jackson MD documented in this encounter [facility] 01-21-2025 Note HNO ID: [id number] Author: HUMBERTO JACKSON MD Service: ? Author [...] on had a URI, fevers and chills. Camargo ok yesterday but feeling winded with activity. [...] Primary insomnia 07/28/2020 QT prolongation 04/20/2021 Seen [facility] 04/19/2021: Camargo to be benign and related to anti-depressants. [...] anything Celexa [Ci (more content not included)... [facility] 01-10-2025 Telephone encounter Note Images from the original note were not included. Received a fax from [employer]. Most recent Endocrinology visit: Last encounter Visit on 01/17/2024 (with Torres Monaco) JULIO: 01/17/24 NOV: does not have one scheduled 01/27/2023 in [facility] with TORRES MONACO for Type 2 diabetes mellitus without complication, without long-term current use of insulin (HCC) 07/07/2023 in [facility] with TORRES MONACO for Type 2 diabetes mellitus without complication, without long-term current use of insulin (HCC) 10/18/2023 in [facility] with TORRSE MONACO for Type 2 diabetes mellitus without complication, without long-term current use of insulin (HCC) 01/17/2024 in [facility] with TORRES MONACO for Type 2 diabetes mellitus without complication, without long-term current use of insulin ([facility]) Upcoming Endocrinology Appointments - Next 365 [...] Prolactin Prolactin 4.1 - 25.1 ng/mL 41.2 [facility] 01-10-2025 Miscellaneous Notes Images from the original note were not included. Received a fax from [facility]. Most recent Endocrinology visit: Last encounter Visit on 01/17/2024 (with Torres Monaco) JULIO: 01/17/24 NOV: does not have one scheduled 01/27/2023 in [facility] with TORRES MONACO for Type 2 diabetes mellitus without complication, without long-term current use of insulin (HCC) 07/07/2023 in [facility] with TORRES MONACO for Type 2 diabetes mellitus without complication, without long-term current use of insulin ([facility]) 10/18/2023 in [facility] with TORRES MONACO for Type 2 diabetes mellitus without complication, without long-term current use of insulin (HCC) 01/17/2024 in [facility] with TORRES MONACO for Type 2 diabetes mellitus without complication, without long-term current use of insulin ([facility]) Upcoming Endocrinology Appointments - Next 365 [...] 25.1 ng/mL 41.2 documented in this encounter [facility] 01-10-2025 Telephone encounter Note Please assist patient with referral to Ortho. Tam Daugherty MA [facility] 01-10-2025 Miscellaneous Notes Please assist patient [...] if patient agreeable. documented in this encounter [facility] 01-10-2025 Telephone encounter Note Referral order placed. Please assist with scheduling. Continue exercises given by PT along with OTC analgesics, ice/heat PRN. [facility] 01-09-2025 Telephone encounter Note Patient notified of results, verbalizes understanding of instructions. Pt stated, Please place order for Ortho. Dimple Castellon LPN [facility] 01-09-2025 Telephone encounter Note ----- Message from Elizabeth Suárez MD sent at 01/08/2025 1:15 PM EDT ----- Mri of the right shoulder does not show rotator cuff tear. Does show signs of frozen shoulder. If pain and weakness not improved after PT, would recommend referral to ortho. Will place order if patient agreeable. [facility] 01-06-2025 History of Present illness Narrative NEUROSURGERY CONSULT NOTE Ja Mckeon MD [facility] Date of visit: January 06, 2025 Patient Name: Mr.David Dany Delarosa Date of : 1975 Current Age: [age] year old Sex: male MRN/E# [id number] Last Office Visit: 12/24/2024 Chief Complaint: Patient [...] Primary insomnia 07/28/2020 QT prolongation 04/20/2021 Seen [facility] 04/19/2021: Camargo to be benign and related to anti-depressants. [...] 90 day supply. 75 mL 3 Insulin Potwin, Disposable, (DROPLET PEN NEEDLE) 31 gauge x [...] in agreement with plan. Ja Mckeon MD [facility] Medical Decision Making: Problems: Moderate: New problem with uncertain prognosis Data: Unique source(s) for external note(s) reviewed: 1 Unique test result(s) reviewed: 1 Unique test(s) ordered: 2 Risk: Moderate: Moderate risk from testing/treatment Medical Decision Making Level: 4 - Moderate This note was partially generated using Diabeto voice recognition system, and there may be some incorrect words, spellings, and punctuation that were not noted in checking the note before saving. documented in this encounter [facility] 01-06-2025 Note HNO ID: [id number] Author: JA MCKEON MD Service: ? Author Type: Physician Type: Progress Notes Filed: 01/06/2025 15:08 Note Text: NEUROSURGERY CONSULT NOTE Ja Mckeon MD [facility] Date of visit: January 06, 2025 Patient Name: Mr.David Dany Delarosa Date of : 1975 Current Age: [age] year old Sex: male MRN/E# [id number] Last Office Visit: 12/24/2024 Chief Complaint: Patient [...] Primary insomnia 07/28/2020 QT prolongation 04/20/2021 Seen [facility] 04/19/2021: Camargo to be benign and related to anti-depressants. [...] uneffective Effexor [Zhou (more content not included)... [facility] 01-04-2025 History of Present illness Narrative Radiology [...] PATIENT PRESENTS WITH AN IMPLANTABLE OR ATTACHED BULK PLANT SUPERVISOR: No RADIOLOGY DEPARTMENT: MR; Exam(s) Completed: Upper MSK: Shoulder, right PERIPHERAL IV DATA: Not applicable SIGNED BY: KIESHA Benton January 04, 2025 8:38 AM documented in this encounter [facility] 01-04-2025 Note HNO ID: [id number] Author: DOMINIK BRYANT MRI Tech Service: Radiology Author Type: Air Analysis Technician Type: Progress Notes Filed: 01/04/2025 08:38 Note [...] PATIENT PRESENTS WITH AN IMPLANTABLE OR ATTACHED BULK PLANT SUPERVISOR: No RADIOLOGY DEPARTMENT: MR; Exam(s) Completed: Upper MSK: Shoulder, right PERIPHERAL IV DATA: Not applicable SIGNED BY: KIESHA Benton January 04, 2025 8:[address] [facility] 12-30-2024 Telephone encounter Note Patient notified and voiced understanding. Tam Daugherty MA [facility] 12-30-2024 Miscellaneous Notes Patient notified and voiced understanding. Tam Daugherty MA Let patient know his x-ray did not show any pneumonia but I want him to complete the antibiotic and f/u with me as planned. documented in this encounter [facility] 12-30-2024 Telephone encounter Note Let patient know his x-ray did not show any pneumonia but I want him to complete the antibiotic and f/u with me as planned. [facility] 12-30-2024 History of Present illness Narrative Radiology Service Progress Note PATIENT NAME: Bianca Delaroas DATE OF SERVICE: December 30, 2024 TIME: [...] PATIENT PRESENTS WITH AN IMPLANTABLE OR ATTACHED BULK PLANT SUPERVISOR: No RADIOLOGY DEPARTMENT: General X-ray: Exam(s) Completed: Chest X-Ray PERIPHERAL IV DATA: Not applicable SIGNED BY: MISSAEL Smith) December 30, 2024 9:23 AM documented in this encounter [facility] 12-30-2024 Note HNO ID: [id number] Author: CECE CORTEZ RT(R) Service: ? Author [...] PATIENT PRESENTS WITH AN IMPLANTABLE OR ATTACHED BULK PLANT SUPERVISOR: No RADIOLOGY DEPARTMENT: General X-ray: Exam(s) Completed: Chest X-Ray PERIPHERAL IV DATA: Not applicable SIGNED BY: Cece Cortez, RT(R) December 30, 2024 9:23 AM [facility] 12-30-2024 Instructions Humberto Jackson MD - 12/30/2024 9:03 AM EDT Please get non-fasting labs on or after 01/30/2025 Please get labs done on or after 06/20/2025 prior to your next visit. documented in this encounter [facility] 12-30-2024 Note HNO ID: [id number] Author: HUMBERTO JACKSON MD Service: ? Author [...] on had a URI, fevers and chills. Camargo ok yesterday but feeling winded with activity. [...] proton pump inhibitor 09/26/2018 Diabetic eye exam ([facility]) 01/27/2017 Last eye exam: 03/05/2019 Diverticulosis [...] disorder with single episode, in partial remission ([facility]) 09/26/2018 Migraine without aura and without status migrainosus, not intractable 09/11/2015 Mood disorder ([facility]) 03/31/2014 Multiple thyroid nodules 02/27/[address] Lazaro 03/2018 Multiple thyroid nodules 02/27/2018 US 03/2020 per radiology no further f/u needed.. All benign Biopsy 03/[address] Lazaro. Benign. Obesity, Class II, BMI 35-39.9 10/21/2022 Obstructive sleep apnea syndrome 01/27/2017 On CPAP Other joint derangement, not elsewhere classified, lower leg 03/25/2013 Primary insomnia 07/28/2020 QT prolongation 04/20/2021 Seen [facility] 04/19/2021: Camargo to be benign and related to anti-depressants. No changes needed. TMJ (temporomandibular joint disorder) 03/31/2014 Right side Type 2 diabetes mellitus without complication, without long-term current use of insulin ([facility]) 01/19/2017 Well adult exam 12/17/2014 Last [...] once daily. met (more content not included)... [facility] 12-30-2024 History of Present illness Narrative Images [...] on had a URI, fevers and chills. Camargo ok yesterday but feeling winded with activity. [...] proton pump inhibitor 09/26/2018 Diabetic eye exam ([facility]) 01/27/2017 Last eye exam: 03/05/2019 Diverticulosis [...] disorder with single episode, in partial remission ([facility]) 09/26/2018 Migraine without aura and without status migrainosus, not intractable 09/11/2015 Mood disorder ([facility]) 03/31/2014 Multiple thyroid nodules 02/27/[address] Lazaro 03/2018 Multiple thyroid nodules 02/27/2018 US 03/2020 per radiology no further f/u needed.. All benign Biopsy 03/[address] Lazaro. Benign. Obesity, Class II, BMI 35-39.9 10/21/2022 Obstructive sleep apnea syndrome 01/27/2017 On CPAP Other joint derangement, not elsewhere classified, lower leg 03/25/2013 Primary insomnia 07/28/2020 QT prolongation 04/20/2021 Seen [facility] 04/19/2021: Camargo to be benign and related to anti-depressants. [...] daily for 30 days. Blood-Glucose Sensor (FREESTYLE EVRET 3 SENSOR) agnes USE ONE SENSOR EVERY [...] mL for a 90 day supply. Insulin Potwin, Disposable, (DROPLET PEN NEEDLE) 31 gauge x [...] Lymph 1.00 - 4.00 k/uL 3.30 2.65 Cooper% % 4.7 6.0 Abs Cooper <0.87 k/uL 0.49 0.48 Eosin% % 1.6 [...] which included preparing to see the patient, [id number] patient care, completing clinical documentation, performing a medically appropriate examination, counseling and educating the patient/family/caregiver and ordering medications, tests, or procedures. Humberto Jackson MD SENSITIVE EXAMINATION CONSENT: The sensitive examination was discussed with the Patient or Patient's Authorized Vegetable I Farmworker. As applicable, any other physician, advance practice provider, medical student, or other health professional student that will be observing or involved in the sensitive examination for educational or training purposes was discussed with the Patient or Authorized Vegetable I Farmworker. The Patient or Authorized Vegetable I Farmworker has agreed to proceed with the sensitive examination. documented in this encounter [facility] 12-24-2024 Telephone encounter Note I spoke to patient confirming we can not do video appts for new patients. Spouse understood and confirmed day and time of appt [facility] 12-24-2024 Miscellaneous Notes I spoke to patient confirming we can not do video appts for new patients. Spouse understood and confirmed day and time of appt documented in this encounter [facility] 12-23-2024 Telephone encounter Note Patient Driss romero got a call from Dr Younger office he does not see patients with pituitary. Assisted with transfer to steel placer, to assist with trying to find Dr that will see pituitary adenoma. [facility] 12-23-2024 Miscellaneous Notes Patient Driss romero got a call from Dr Younger office he does not see patients with pituitary. Assisted with transfer to steel placer, to assist with trying to find Dr that will see pituitary adenoma. documented in this encounter [facility] 12-20-2024 Telephone encounter Note I spoke to patient informing her that Dr. GARCIA does not see if pituitary tumors and I will speak to Dr. Wyman and see if he will be willing to see patient as patient ENDO appt is not until February. was not happy but understood. [facility] 12-20-2024 Miscellaneous Notes I spoke to patient informing her that Dr. GARCIA does not see if pituitary tumors and I will speak to Dr. B and see if he will be willing to see patient as patient ENDO appt is not until February. was not happy but understood. documented in this encounter [facility] 12-20-2024 History of Present illness Narrative [...] status migrainosus, not intractable 09/11/2015 Mood disorder ([facility]) 03/31/2014 Multiple thyroid nodules 02/27/[address] Lazaro 03/2018 Multiple thyroid nodules 02/27/2018 US 03/2020 per radiology no further f/u needed.. All benign Biopsy 03/2018 Dr. Lazaro. Benign. Obesity, Class II, BMI 35-39.9 10/21/2022 Obstructive sleep apnea syndrome 01/27/2017 On CPAP Other joint derangement, not elsewhere classified, lower leg 03/25/2013 Primary insomnia 07/28/2020 QT prolongation 04/20/2021 Seen [facility] 04/19/2021: Camargo to be benign and related to anti-depressants. No changes needed. TMJ (temporomandibular joint disorder) 03/31/2014 Right side Type 2 diabetes mellitus without complication, without long-term current use of insulin ([facility]) 01/19/2017 Well adult exam 12/17/2014 Last [...] mL for a 90 day supply. Insulin Potwin, Disposable, (DROPLET PEN NEEDLE) 31 gauge x [...] mIU/mL <0.6 Results MRI BRAIN WO/W IVCON (Acc#[id number] ) (Order [id number]) Patient Info Patient Name Sex Bianca Morales ([id number]) Male 1975 12/11/2024 11:22 AM - Radiology, [...] reflect an underlying lesion/adenoma or pituitary hyperplasia. Utility Mechanic: GORGE Transcribe Date/Time: Dec 11 2024 11:13A Dictated by : DAVID FAY MD This examination was interpreted and the report reviewed and electronically signed by: DAVID FAY MD on Dec 11 2024 11:19AM EST Results XR SHOULDER GENERAL 3V OR MORE AP/TRUE AP/OTHER RIGHT (Acc#[id number] ) (Order [id number]) Patient Info Patient Name Sex Bianca Morales ([id number]) Male 1975 05/26/2024 7:34 PM - Radiology, Oru In Impression IMPRESSION: No acute bone abnormality. Utility Mechanic: [facility] Transcribe Date/Time: May 26 2024 7:31P Dictated [...] - CONSULT TO NEUROSURGERY: Dr. Younger at [facility] - patient to keep endo appt. [...] Humberto Jackson MD documented in this encounter [facility] 12-20-2024 Note HNO ID: [id number] Author: HUMBERTO JACKSON MD Service: ? Author [...] disorder with single episode, in partial remission ([facility]) 09/26/2018 Migraine without aura and without status migrainosus, not intractable 09/11/2015 Mood disorder ([facility]) 03/31/2014 Multiple thyroid nodules 02/27/[address] Lazaro 03/2018 Multiple thyroid nodules 02/27/2018 US 03/2020 per radiology no further f/u needed.. All benign Biopsy 03/[address] Lazaro. Benign. Obesity, Class II, BMI 35-39.9 10/21/2022 Obstructive sleep apnea syndrome 01/27/2017 On CPAP Other joint derangement, not elsewhere classified, lower leg 03/25/2013 Primary insomnia 07/28/2020 QT prolongation 04/20/2021 Seen [facility] 04/19/2021: Camargo to be benign and related to anti-depressants. [...] days. Blood-Glucose Sen (more content not included)... [facility] 12-16-2024 Telephone encounter Note ----- Message from Juhi Wyman sent at 12/16/2024 2:11 PM EDT ----- Patient scheduled himself via [employer] for consult. ----- Message ----- From: Tam Daugherty MA Sent: 12/16/2024 9:27 AM EDT To: [facility] Clerical Pool [facility] 12-16-2024 Miscellaneous Notes ----- Message from Juhi Wyman sent at 12/16/2024 2:11 PM EDT ----- Patient scheduled himself via [facility] for consult. ----- Message ----- From: Tam Daugherty MA Sent: 12/16/2024 9:27 AM EDT To: [facility] Clerical Pool Please assist with scheduling neurosurgery. Tam Daugherty MA Let patient I'll place a referral to see Endo. Which we have up at the [facility]. I know I se he has an appt with Endocrine/Pituitary at [facility] on 02/06/2025 and this is who can [...] get their opinion. documented in this encounter [facility] 12-16-2024 Telephone encounter Note Patient notified via my chart. Tam Daugherty MA [facility] 12-16-2024 Miscellaneous Notes Patient notified via my chart. Tam Daugherty MA documented in this encounter [facility] 12-16-2024 Telephone encounter Note Please assist with scheduling neurosurgery. Tam Daugherty MA [facility] [address] [facility] NEW PATIENT REFERRAL TRIAGE Referral source:self No referring provider defined for this encounter. Referral Reason: for a second opinion on neurological symptoms Care Everywhere Completed Connection: [x]Yes or []No MyChart Dot Phrase Sent if Records were not sent MyChart Account?: [x]Yes or []No MyChart Dot Phrase Sent: Date 2024 Laurie Gonzales LPN [facility] [address] [facility] NEW PATIENT REFERRAL TRIAGE Referral source:self No referring provider defined for this encounter. Referral Reason: for a second opinion on neurological symptoms Care Everywhere Completed Connection: [x]Yes or []No MyChart Dot Phrase Sent if Records were not sent MyChart Account?: [x]Yes or []No MyChart Dot Phrase Sent: Date 2024 Laurie Gonzales LPN documented in this encounter [facility] 2024 Telephone encounter Note Let patient I'll place a referral to see Endo. Which we have up at the [facility]. I know I se he has an appt with Endocrine/Pituitary at [facility] on 02/06/2025 and this is who can help address the testosterone level. [facility] 12-12-2024 Telephone encounter Note Pt notified of results and instructions. Pt verbalizes understanding and was assisted in transfer to schedule MRI. Pt advises that he saw his low testosterone result on My Chart and questions what he should do about this. Carmelo Lopez LPN [facility] 12-12-2024 Telephone encounter Note Patient has been scheduled and confirmed Radha Bland December 12, 2024 10:15 AM [facility] 12-12-2024 Miscellaneous Notes Patient has been scheduled and confirmed Radha Bland December 12, 2024 10:15 AM Time Frame: Next available If unable to obtain an appointment within requested time frame, please contact appropriate home care specialist for scheduling access Provider: Miles Raymond Referring: Humberto Jackson MD Please instruct patient to hand carry/ upload images prior to appt Dx: pituitary adenoma Patient: Bianca Delarosa Address: Bianca Delarosa [id number] [place] [address] Per Triage: Bianca Delarosa is a 48 [...] reflect an underlying lesion/adenoma or pituitary hyperplasia. Utility Mechanic: GORGE Transcribe Date/Time: Dec 11 2024 11:13A [...] Reed APRN.CNP December 12, 2024 Request Summary [[id number]] Procedure: CONSULT TO NEUROSURGERY Status: Needs Scheduling Requested appt date: Authorizing: Humberto Jackson MD in [facility] Referral: [id number] (Authorized) Expires: 12/11/2025 Priority: Routine Diagnosis: Gynecomastia, male [N62] Elevated prolactin level [R79.89] Abnormal finding on MRI of brain [R90.89] Order Specific Questions Does consulting provider have [facility] Epic access? Yes [facility] Brain Tumor documented in this encounter [facility] 12-12-2024 Telephone encounter Note Time Frame: Next available If unable to obtain an appointment within requested time frame, please contact appropriate home care specialist for scheduling access Provider: Miles Raymond Referring: Humberto Jackson MD Please instruct patient to hand carry/ upload images prior to appt Dx: pituitary adenoma Patient: Bianca Delarosa Address: Bianca Delarosa [phone] [place] [address] Per Triage: Bianca Delarosa is a 48 year old male that requests evaluation of previously diagnosed pituitary adenoma during work up for gynecomastia. Patient expectations: New Consult Tumor Specifics: Location: pituitary Previous Evaluations: MRI w/wo contrast * * *Final Report* * * DATE OF EXAM: Dec 11 2024 10:59AM [facility] [id number] - MRI BRAIN WO/W [...] reflect an underlying lesion/adenoma or pituitary hyperplasia. Utility Mechanic: GORGE Transcribe Date/Time: Dec 11 2024 11:13A [...] low Corazon Reed APRN.CNP December 12, 2024 [facility] Work Phone: 12-12-2024 Telephone encounter Note Request Summary [[id number]] Procedure: CONSULT TO NEUROSURGERY Status: Needs Scheduling Requested appt date: Authorizing: Humberto Jackson MD in [facility] Referral: [id number] (Authorized) Expires: 12/11/2025 Priority: Routine Diagnosis: Gynecomastia, male [N62] Elevated prolactin level [R79.89] Abnormal finding on MRI of brain [R90.89] Order Specific Questions Does consulting provider have [facility] Epic access? Yes [facility] Brain Tumor [facility] 12-11-2024 Telephone encounter Note Let patient know the MRI does show a possibility of a abnormality in his pituitary. I want to have him see a neurosurgeon to get their opinion. [facility] 12-11-2024 History of Present illness Narrative [...] Intact SIGNATURE: Janae Cunningham RN PATIENT NAME: Bainca Delarosa DATE: December 11, 2024 TIME: 10:04 [...] PATIENT PRESENTS WITH AN IMPLANTABLE OR ATTACHED BULK PLANT SUPERVISOR: No RADIOLOGY DEPARTMENT: MR; Exam(s) Completed: Head: Routine Brain PERIPHERAL IV DATA: Site assessment: Clean,Dry and Intact, Site disposition Discontinued SIGNED BY: RT Logan(Lino) December 11, 2024 10:45 AM documented in this encounter [facility] 12-11-2024 Note HNO ID: [id number] Author: JANAE CUNNINGHAM RN Service: Radiology Author [...] DATE: December 11, 2024 TIME: 10:04 AM [facility] 12-11-2024 Note HNO ID: [id number] Author: ARIADNA HERNANDES RT(Lino) Service: ? Author Type: Air Analysis Technician Type: Progress Notes Filed: 12/11/2024 10:57 Note [...] PATIENT PRESENTS WITH AN IMPLANTABLE OR ATTACHED BULK PLANT SUPERVISOR: No RADIOLOGY DEPARTMENT: MR; Exam(s) Completed: Head: Routine Brain PERIPHERAL IV DATA: Site assessment: Clean,Dry and Intact, Site disposition Discontinued SIGNED BY: RT Logan(R) December 11, 2024 10:45 AM [facility] 12-09-2024 Telephone encounter Note Let p-t know I tried sending a different formulation of the methylphenidate to [facility]. If still an issue let me know. The following approved medication requests have been transmitted electronically. Requested Prescriptions Signed Prescriptions Disp Refills methylphenidate LA (RITALIN LA) 20 mg biphasic capsule 30 capsule 0 Sig: Take 1 capsule by mouth once daily for 30 days. Humberto Jackson MD [facility] 12-09-2024 Miscellaneous Notes Let p-t know I tried sending a different formulation of the methylphenidate to [facility]. If still an issue let me know. The following approved medication requests have been transmitted electronically. Requested Prescriptions Signed Prescriptions Disp Refills methylphenidate LA (RITALIN LA) 20 mg biphasic capsule 30 capsule 0 Sig: Take 1 capsule by mouth once daily for 30 days. Humberto Jackson MD documented in this encounter [facility] 12-04-2024 Telephone encounter Note Patient notified of results and provider's instructions. Patient verbalizes understanding. Juhi Murillo RN [facility] 12-04-2024 Miscellaneous Notes Patient notified of [...] restart the metformin. documented in this encounter [facility] 12-04-2024 Telephone encounter Note Left message for pt to contact office. Carmelo Lopez LPN [facility] 12-03-2024 Telephone encounter Note Let patient [...] let him know to restart the metformin. [facility] 12-03-2024 History of Present illness Narrative [...] PATIENT PRESENTS WITH AN IMPLANTABLE OR ATTACHED BULK PLANT SUPERVISOR: No RADIOLOGY DEPARTMENT: Ultrasound PERIPHERAL IV DATA: Not applicable SIGNED BY: Berkley García RDMS [facility] December 03, 2024 1:57 PM documented in this encounter [facility] 12-03-2024 Note HNO ID: [id number] Author: BERKLEY GARCÍA RDMS Service: ? Author Type: Drywall Hanger Helper Type: Progress Notes Filed: 12/03/2024 13:57 Note [...] PATIENT PRESENTS WITH AN IMPLANTABLE OR ATTACHED BULK PLANT SUPERVISOR: No RADIOLOGY DEPARTMENT: Ultrasound PERIPHERAL IV DATA: Not applicable SIGNED BY: Berkley García RDMS [facility] December 03, 2024 1:57 PM [facility] 12-03-2024 History of Present illness Narrative Radiology [...] PATIENT PRESENTS WITH AN IMPLANTABLE OR ATTACHED BULK PLANT SUPERVISOR: No RADIOLOGY DEPARTMENT: Mammography PERIPHERAL IV DATA: Not applicable SIGNED BY: Benja Truong December 03, 2024 8:15 AM documented in this encounter [facility] 12-03-2024 Note HNO ID: [id number] Author: APRIL CLEMENS Mammo Tech Service: ? Author Type: Air Analysis Technician Type: Progress Notes Filed: 12/03/2024 08:15 Note [...] PATIENT PRESENTS WITH AN IMPLANTABLE OR ATTACHED BULK PLANT SUPERVISOR: No RADIOLOGY DEPARTMENT: Mammography PERIPHERAL IV DATA: Not applicable SIGNED BY: April Clemens [employer] December 03, 2024 8:15 AM [facility] 11-27-2024 Telephone encounter Note Patient notified of results and provider's instructions. Patient verbalizes understanding. Pt was assisted in transfer to schedule MRI. Carmelo Lopez LPN [facility] 11-27-2024 Miscellaneous Notes Patient notified of [...] restart the metformin. documented in this encounter [facility] 11-26-2024 Telephone encounter Note Let patient [...] can be told to restart the metformin. [facility] 11-22-2024 History of Present illness Narrative [...] proton pump inhibitor 09/26/2018 Diabetic eye exam ([facility]) 01/27/2017 Last eye exam: 03/05/2019 Diverticulosis [...] disorder with single episode, in partial remission ([facility]) 09/26/2018 Migraine without aura and without status migrainosus, not intractable 09/11/2015 Mood disorder ([facility]) 03/31/2014 Multiple thyroid nodules 02/27/[address] Lazaro 03/2018 Multiple thyroid nodules 02/27/2018 US 03/2020 per radiology no further f/u needed.. All benign Biopsy 03/[address] Lazaro. Benign. Obesity, Class II, BMI 35-39.9 10/21/2022 Obstructive sleep apnea syndrome 01/27/2017 On CPAP Other joint derangement, not elsewhere classified, lower leg 03/25/2013 Primary insomnia 07/28/2020 QT prolongation 04/20/2021 Seen [facility] 04/19/2021: Camargo to be benign and related to anti-depressants. [...] mL for a 90 day supply. Insulin Potwin, Disposable, (DROPLET PEN NEEDLE) 31 gauge x [...] Humberto Jackson MD documented in this encounter [facility] 11-22-2024 Note HNO ID: [id number] Author: HUMBERTO JACKSON MD Service: ? Author [...] Primary insomnia 07/28/2020 QT prolongation 04/20/2021 Seen [facility] 04/19/2021: Camargo to be benign and related to anti-depressants. No changes needed. TMJ (temporomandibular joint disorder) 03/31/2014 Right side Type 2 diabetes mellitus without complication, without long-term current use of insulin ([facility]) 01/19/2017 Well adult exam 12/17/2014 Last [...] unit/mL (3 mL) (more content not included)... [facility] 11-18-2024 Telephone encounter Note The following approved [...] was identified. 11/18/2024 by Humberto Jackson MD [facility] 11-18-2024 Miscellaneous Notes The following approved [...] 2024 6:08 PM documented in this encounter [facility] 11-18-2024 Telephone encounter Note Prescription Refill [...] Ibarra MA November 18, 2024 6:08 PM [facility] 11-05-2024 Telephone encounter Note Prescription Refill [...] Parrish MA November 05, 2024 7:56 AM [facility] 11-05-2024 Miscellaneous Notes Prescription Refill Information [...] 2024 7:56 AM documented in this encounter [facility] 10-28-2024 Telephone encounter Note Pt called and is notified of providers results and instructions. Pt voices understanding. Emma Martínez RN [facility] 10-28-2024 Miscellaneous Notes Pt called and [...] and never rescheduled. documented in this encounter [facility] 10-28-2024 Telephone encounter Note Let patient [...] can determine if any further w/u needed. [facility] 10-25-2024 History of Present illness Narrative [...] PATIENT PRESENTS WITH AN IMPLANTABLE OR ATTACHED BULK PLANT SUPERVISOR: No RADIOLOGY DEPARTMENT: Ultrasound PERIPHERAL IV DATA: Not applicable SIGNED BY: Berkley García RDMS RVT October 25, 2024 10:05 AM documented in this encounter [facility] 10-25-2024 Note HNO ID: [id number] Author: BERKLEY GARCÍA RDMS Service: ? Author Type: Drywall Hanger Helper Type: Progress Notes Filed: 10/25/2024 10:05 Note [...] PATIENT PRESENTS WITH AN IMPLANTABLE OR ATTACHED BULK PLANT SUPERVISOR: No RADIOLOGY DEPARTMENT: Ultrasound PERIPHERAL IV DATA: Not applicable SIGNED BY: Berkley García RDMS RVSun October 25, 2024 10:05 AM [facility] 10-23-2024 Telephone encounter Note The following approved medication requests have been transmitted electronically. Requested Prescriptions Signed Prescriptions Disp Refills sucralfate (CARAFATE) 1 gram tablet 60 tablet 5 Sig: Take one tab with lunch and before bed. Humberto Jackson MD [facility] 10-23-2024 Miscellaneous Notes The following approved medication requests have been transmitted electronically. Requested Prescriptions Signed Prescriptions Disp Refills sucralfate (CARAFATE) 1 gram tablet 60 tablet 5 Sig: Take one tab with lunch and before bed. Humberto Jackson MD documented in this encounter [facility] 10-18-2024 Telephone encounter Note Patient notified and voiced understanding. Please assist patient to schedule US. Tam Daugherty MA [facility] 10-17-2024 Telephone encounter Note Let patient know I have placed some additional labs to work up the elevated alk phos and want to get a US of his gal bladder to see if he has stones. Order placed. [facility] 10-17-2024 Telephone encounter Note Patient informed and verbalized understanding. He states he was fasting for these labs. Dannielle Herr MA [facility] 10-16-2024 Telephone encounter Note Let patient [...] his appt in 04/2024 and never rescheduled. [facility] 10-14-2024 Note HNO ID: [id number] Author: HUMBERTO JACKSON MD Service: ? Author [...] disorder with single episode, in partial remission ([facility]) 09/26/2018 Migraine without aura and without status migrainosus, not intractable 09/11/2015 Mood disorder ([facility]) 03/31/2014 Multiple thyroid nodules 02/27/[address] Lazaro 03/2018 Multiple thyroid nodules 02/27/2018 US 03/2020 per radiology no further f/u needed.. All benign Biopsy 03/[address] Lazaro. Benign. Obesity, Class II, BMI 35-39.9 10/21/2022 Obstructive sleep apnea syndrome 01/27/2017 On CPAP Other joint derangement, not elsewhere classified, lower leg 03/25/2013 Primary insomnia 07/28/2020 QT prolongation 04/20/2021 Seen [facility] 04/19/2021: Camargo to be benign and related to anti-depressants. No changes needed. TMJ (temporomandibular joint disorder) 03/31/2014 Right side Type 2 diabetes mellitus without complication, without long-term current use of insulin ([facility]) 01/19/2017 Well adult exam 12/17/2014 Last [...] 100 unit/mL (3 (more content not included)... [facility] 10-11-2024 Telephone encounter Note Come in and see one of the providers [facility] Work Phone: 10-11-2024 Miscellaneous Notes Come in and see one of the providers Pt recently seen in office on 09/17/24 for ADD medication. No GERD issues discussed at visit. Please advise if pt needs an appt to discuss or okay to adjust medication. Rosie Marques MA documented in this encounter [facility] 10-10-2024 Telephone encounter Note Pt recently seen in office on 09/17/24 for ADD medication. No GERD issues discussed at visit. Please advise if pt needs an appt to discuss or okay to adjust medication. Rosie Marques MA [facility] 09-17-2024 Note HNO ID: [id number] Author: HUMBERTO JACKSON MD Service: ? 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 Lazaro 03/2018 Multiple thyroid nodules 02/27/2018 US 03/2020 per radiology no further f/u needed.. All benign Biopsy 03/[address] Lazaro. Benign. Obesity, Class II, BMI 35-39.9 10/21/2022 Obstructive sleep apnea syndrome 01/27/2017 On CPAP Other joint derangement, not elsewhere classified, lower leg 03/25/2013 Primary insomnia 07/28/2020 QT prolongation 04/20/2021 Seen [facility] 04/19/2021: Camargo to be benign and related to anti-depressants. [...] Current Medications C (more content not included)... 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 Lazaro 03/2018 Multiple thyroid nodules 02/27/2018 US 03/2020 per radiology no further f/u needed.. All benign Biopsy 03/2018 Dr. Lazaro. Benign. Obesity, Class II, BMI 35-39.9 10/21/2022 Obstructive sleep apnea syndrome 01/27/2017 On CPAP Other joint derangement, not elsewhere classified, lower leg 03/25/2013 Primary insomnia 07/28/2020 QT prolongation 04/20/2021 Seen [facility] 04/19/2021: Camargo to be benign and related to anti-depressants. [...] tab by mouth twice a day. Insulin Potwin, Disposable, (DROPLET PEN NEEDLE) 31 gauge x [...] Humberto Jackson MD documented in this encounter [facility] 08-26-2024 Note HNO ID: [id number] Author: STORM PATEL PT Service: ? Author [...] to 08/26/2024 and treatment included: Therapeutic exercise, Self-assisted management, Patient/Family/Caregiver Education, and Body mechanics training. Updated: 07/22/24 and 08/26/24 Goals for Episode of Care: established 06/12/24 [place] in home exercise program. - MET Patient [...] Stop Time : 1106 Storm Patel PT [facility] 08-26-2024 History of Present illness Narrative Images [...] to 08/26/2024 and treatment included: Therapeutic exercise, Self-assisted management, Patient/Family/Caregiver Education, and Body mechanics training. Updated: 07/22/24 and 08/26/24 Goals for Episode of Care: established 06/12/24 [place] in home exercise program. - MET Patient [...] Storm Patel PT documented in this encounter [facility] 08-19-2024 History of Present illness Narrative [...] Primary insomnia 07/28/2020 QT prolongation 04/20/2021 Seen [facility] 04/19/2021: Camargo to be benign and related to anti-depressants. No changes needed. TMJ (temporomandibular joint disorder) 03/31/2014 Right side Type 2 diabetes mellitus without complication, without long-term current use of insulin ([facility]) 01/19/2017 Well adult exam 12/17/2014 Last [...] 1 capsule by mouth once daily. Insulin Potwin, Disposable, (DROPLET PEN NEEDLE) 31 gauge x [...] choice. LIFETIME SUPPLIES. SD Card. Download to [email or web address]. multivitamin tablet Take 1 tablet by mouth [...] Humberto Echeverria MD documented in this encounter [facility] 08-19-2024 Note HNO ID: [id number] Author: HUMBERTO JACKSON MD Service: ? Author [...] Acute hypoxemic respiratory failure due to COVID-19 ([facility]) 09/24/2023 Agitation 03/31/2014 Allergic rhinitis 03/31/2014 [...] status migrainosus, not intractable 09/11/2015 Mood disorder ([facility]) 03/31/2014 Multiple thyroid nodules 02/27/[address] Lazaro 03/2018 Multiple thyroid nodules 02/27/2018 US 03/2020 per radiology no further f/u needed.. All benign Biopsy 03/[address] Lazaro. Benign. Obesity, Class II, BMI 35-39.9 10/21/2022 Obstructive sleep apnea syndrome 01/27/2017 On CPAP Other joint derangement, not elsewhere classified, lower leg 03/25/2013 Primary insomnia 07/28/2020 QT prolongation 04/20/2021 Seen [facility] 04/19/2021: Camargo to be benign and related to anti-depressants. No changes needed. TMJ (temporomandibular joint disorder) 03/31/2014 Right side Type 2 diabetes mellitus without complication, without long-term current use of insulin ([facility]) 01/19/2017 Well adult exam 12/17/2014 Last [...] Medication Sig me (more content not included)... [facility] 08-19-2024 Telephone encounter Note The following approved [...] was identified. 08/19/2024 by Humberto Jackson MD [facility] 08-19-2024 Miscellaneous Notes The following approved [...] 2024 10:37 AM documented in this encounter [facility] 08-19-2024 Telephone encounter Note Prescription Refill [...] Lopez LPN August 19, 2024 10:37 AM [facility] 08-05-2024 Note HNO ID: [id number] Author: STORM PATEL PT Service: ? Author [...] Stop Time : 830 Storm Patel PT [facility] 08-05-2024 History of Present illness Narrative Episode [...] Stop Time : 830 Storm Patel PT Program_ID:[id number] Access Code: [email or web address] URL: [email or web address] Date: 08-05-2024 Prepared By: Storm Patel Program [...] - 1 reps documented in this encounter [facility] 07-22-2024 Note HNO ID: [id number] Author: STORM PATEL PT Service: ? Author [...] Goals for Episode of Care: established 06/12/24 [place] in home exercise program. - Partially MET, [...] Patient to be seen for Therapeutic exercise (56378), Manual therapy (89060), Self-assisted management (17419), Patient/Family/Caregiver Education, Body Mechanics Training PLAN FOR NEXT VISIT: Continue with active therex to address R shoulder pain, ROM, strength and function. Progress to tolerance. SUBJECTIVE: Pt reports that overall his R shoulder is feeling better and less painful. He reports traveling for work recently and when he first arrived in [place], his R shoulder pain was noticeably less. He reports that he was very active when he was in [place] doing a lot of lifting and working [...] standing R UE (more content not included)... [facility] 07-22-2024 History of Present illness Narrative Images [...] Goals for Episode of Care: established 06/12/24 [place] in home exercise program. - Partially MET, [...] Patient to be seen for Therapeutic exercise (76831), Manual therapy (90089), Self-assisted management (93714), Patient/Family/Caregiver Education, Body Mechanics Training PLAN FOR NEXT VISIT: Continue with active therex to address R shoulder pain, ROM, strength and function. Progress to tolerance. SUBJECTIVE: Pt reports that overall his R shoulder is feeling better and less painful. He reports traveling for work recently and when he first arrived in [place], his R shoulder pain was noticeably less. He reports that he was very active when he was in [place] doing a lot of lifting and working [...] Storm Patel PT documented in this encounter [facility] 06-28-2024 History of Present illness Narrative Program_ID:[id number] Access Code: [email or web address] URL: [email or web address] Date: 06-28-2024 Prepared By: Storm Patel Program [...] TERRY Ye PT documented in this encounter [facility] 06-28-2024 Note HNO ID: [id number] Author: STORM PATEL PT Service: ? Author [...] : 842 Ruby Cho, TERRY Patel, PT [facility] 06-17-2024 Telephone encounter Note Prescription Refill Information [...] Daugherty MA June 17, 2024 8:35 AM [facility] 06-17-2024 Miscellaneous Notes Prescription Refill Information [...] 2024 8:35 AM documented in this encounter [facility] 06-12-2024 Note HNO ID: [id number] Author: STORM PATEL PT Service: ? Author [...] Goals for Episode of Care: established 06/12/24 [place] in home exercise program. 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 [facility] 06-12-2024 History of Present illness Narrative Images [...] Goals for Episode of Care: established 06/12/24 [place] in home exercise program. 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 Author Type: Nurse Practitioner Type: [...] Acute hypoxemic respiratory failure due to COVID-19 ([facility]) 03/31/2014: Agitation 03/31/2014: Allergic rhinitis 03/31/2014: Allergy-induced asthma Comment: Mild intermitant 12/07/2022: Attention 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 Comment: Substance agreement signed 12/2022, Tox screen done 12/202209/26/2018: Current use of proton pump inhibitor 01/27/2017: Diabetic eye exam ([facility]) Comment: Last eye exam: 03/05/2019 03/31/2014: [...] disorder with single episode, in partial remission ([facility]) 09/11/2015: Migraine without aura and without status migrainosus, not intractable 03/31/2014: Mood disorder ([facility]) 02/27/2018: Multiple thyroid nodules Comment: Seen Dr. Lazaro 03/201802/27/2018: Multiple thyroid nodules Comment: US 03/2020 per radiology no further f/u needed.. All benign Biopsy 03/[address] Lazaro. Benign. 10/21/2022: Obesity, Class II, BMI 35-39.9 01/27/2017: Obstructive sleep apnea syndrome Comment: On CPAP 03/25/2013: Other joint derangement, not elsewhere classified, lower leg 07/28/2020: Primary insomnia 04/20/2021: QT prolongation Comment: Seen [facility] 04/19/2021: Camargo to be benign and related to anti-depressants. No changes needed. 03/31/2014: TMJ (temporomandibular joint disorder) Comment: Right side 01/19/2017: Type 2 diabetes mellitus without complication, without long-term current use of insulin ([facility]) 12/17/2014: Well adult exam Comment: Last [...] at bedtime. dox (more content not included)... [facility] 06-06-2024 History of Present illness Narrative Chief [...] Acute hypoxemic respiratory failure due to COVID-19 ([facility]) 03/31/2014: Agitation 03/31/2014: Allergic rhinitis 03/31/2014: Allergy-induced asthma Comment: Mild intermitant 12/07/2022: Attention 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 Comment: Substance agreement signed 12/2022, Tox screen done 12/202209/26/2018: Current use of proton pump inhibitor 01/27/2017: Diabetic eye exam ([facility]) Comment: Last eye exam: 03/05/2019 03/31/2014: [...] disorder with single episode, in partial remission ([facility]) 09/11/2015: Migraine without aura and without status migrainosus, not intractable 03/31/2014: Mood disorder ([facility]) 02/27/2018: Multiple thyroid nodules Comment: Seen Dr. Lazaro 03/201802/27/2018: Multiple thyroid nodules Comment: US 03/2020 per radiology no further f/u needed.. All benign Biopsy 03/[address] Lazaro. Benign. 10/21/2022: Obesity, Class II, BMI 35-39.9 01/27/2017: Obstructive sleep apnea syndrome Comment: On CPAP 03/25/2013: Other joint derangement, not elsewhere classified, lower leg 07/28/2020: Primary insomnia 04/20/2021: QT prolongation Comment: Seen [facility] 04/19/2021: Camargo to be benign and related to anti-depressants. No changes needed. 03/31/2014: TMJ (temporomandibular joint disorder) Comment: Right side 01/19/2017: Type 2 diabetes mellitus without complication, without long-term current use of insulin ([facility]) 12/17/2014: Well adult exam Comment: Last [...] 1 capsule by mouth once daily. Insulin Potwin, Disposable, (DROPLET PEN NEEDLE) 31 gauge x [...] choice. LIFETIME SUPPLIES. SD Card. Download to [email or web address]. multivitamin tablet Take 1 tablet by mouth [...] Abs Lymph 1.00 - 4.00 k/uL 3.30 Cooper% % 4.7 Abs Cooper <0.87 k/uL 0.49 Eosin% % 1.6 Abs [...] COMPLETE BLOOD COUNT AND DIFFERENTIAL Dominik Kelley APRN.MECHANICAL MANUFACTURING TECHNICIAN documented in this encounter [facility] 05-28-2024 Telephone encounter Note Pt notified and verbalized understanding Chuy Jackson MA [facility] 05-28-2024 Miscellaneous Notes Pt notified and verbalized understanding Chuy Jackson MA Called and left a voicemail for the Patient to call back and ask for a nurse to receive the providers message. Emma Martínez RN Please let patient know their xray is normal. documented in this encounter [facility] 05-27-2024 Telephone encounter Note Called and left a voicemail for the Patient to call back and ask for a nurse to receive the providers message. Emma Martínez RN [facility] 05-27-2024 Telephone encounter Note Please let patient know their xray is normal. [facility] Work Phone: 05-21-2024 History of Present [...] PATIENT PRESENTS WITH AN IMPLANTABLE OR ATTACHED BULK PLANT SUPERVISOR: No RADIOLOGY DEPARTMENT: General X-ray: Exam(s) Completed: Upper Extremity X-Ray(s): Shoulder, AP / TRUE AP right Scapular Y view PERIPHERAL IV DATA: Not applicable SIGNED BY: MISSAEL Kirk) May 21, 2024 4:16 PM documented in this encounter [facility] 05-21-2024 Note HNO ID: [id number] Author: LINDY NARAYAN RT(R) Service: ? Author Type: Air Analysis Technician Type: Progress Notes Filed: 05/21/2024 16:16 Note [...] PATIENT PRESENTS WITH AN IMPLANTABLE OR ATTACHED BULK PLANT SUPERVISOR: No RADIOLOGY DEPARTMENT: General X-ray: Exam(s) Completed: Upper Extremity X-Ray(s): Shoulder, AP / TRUE AP right Scapular Y view PERIPHERAL IV DATA: Not applicable SIGNED BY: Lindy Narayan, RT(R) May 21, 2024 4:16 PM [facility] 05-21-2024 Note HNO ID: [id number] Author: DOMINIK KELLEY APRN.MECHANICAL MANUFACTURING TECHNICIAN Service: ? Author Type: Nurse Practitioner Type: [...] Acute hypoxemic respiratory failure due to COVID-19 ([facility]) 03/31/2014: Agitation 03/31/2014: Allergic rhinitis 03/31/2014: Allergy-induced asthma Comment: Mild intermitant 12/07/2022: Attention 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 Comment: Substance agreement signed 12/2022, Tox screen done 12/202209/26/2018: Current use of proton pump inhibitor 01/27/2017: [facility] [facility] Comment: Last eye exam: 03/05/2019 03/31/2014: [...] disorder with single episode, in partial remission ([facility]) 09/11/2015: Migraine without aura and without status migrainosus, not intractable 03/31/2014: Mood disorder ([facility]) 02/27/2018: Multiple thyroid nodules Comment: Seen Dr. Lazaro 03/201802/27/2018: Multiple thyroid nodules Comment: US 03/2020 per radiology no further f/u needed.. All benign Biopsy 03/2018 renee Lazaro. Benign. 10/21/2022: Obesity, Class II, BMI 35-39.9 01/27/2017: Obstructive sleep apnea syndrome Comment: On CPAP 03/25/2013: Other joint derangement, not elsewhere classified, lower leg 07/28/2020: Primary insomnia 04/20/2021: QT prolongation Comment: Seen [facility] 04/19/2021: Camargo to be benign and related to anti-depressants. No changes needed. 03/31/2014: TMJ (temporomandibular joint disorder) Comment: Right side 01/19/2017: Type 2 diabetes mellitus without complication, without long-term current use of insulin ([facility]) 12/17/2014: Well adult exam Comment: Last [...] by mouth da (more content not included)... [facility] 05-21-2024 History of Present illness Narrative Chief [...] proton pump inhibitor 01/27/2017: Diabetic eye exam ([facility]) Comment: Last eye exam: 03/05/2019 03/31/2014: [...] disorder with single episode, in partial remission ([facility]) 09/11/2015: Migraine without aura and without status migrainosus, not intractable 03/31/2014: Mood disorder ([facility]) 02/27/2018: Multiple thyroid nodules Comment: Seen Dr. Lazaro 03/201802/27/2018: Multiple thyroid nodules Comment: US 03/2020 per radiology no further f/u needed.. All benign Biopsy 03/[address] Lazaro. Benign. 10/21/2022: Obesity, Class II, BMI 35-39.9 01/27/2017: Obstructive sleep apnea syndrome Comment: On CPAP 03/25/2013: Other joint derangement, not elsewhere classified, lower leg 07/28/2020: Primary insomnia 04/20/2021: QT prolongation Comment: Seen [facility] 04/19/2021: Camargo to be benign and related to anti-depressants. No changes needed. 03/31/2014: TMJ (temporomandibular joint disorder) Comment: Right side 01/19/2017: Type 2 diabetes mellitus without complication, without long-term current use of insulin ([facility]) 12/17/2014: Well adult exam Comment: Last [...] 1 capsule by mouth once daily. Insulin Potwin, Disposable, (DROPLET PEN NEEDLE) 31 gauge x [...] choice. LIFETIME SUPPLIES. SD Card. Download to [email or web address]. multivitamin tablet Take 1 tablet by mouth [...] - CONSULT TO PHYSICAL THERAPY Dominik Kelley APRN.MECHANICAL MANUFACTURING TECHNICIAN documented in this encounter [facility] 05-21-2024 Telephone encounter Note Patient calls [...] rash, fever, numbness, weakness. Protocols used: Arm [id number] [facility] 05-21-2024 Miscellaneous Notes Patient calls for [...] rash, fever, numbness, weakness. Protocols used: Arm [id number] TC patient, left message for patient to call back and speak with a triage nurse regarding patient's symptoms. Patient had requested appointment for pain in right arm and shoulder/tired all the time. Juhi Murillo RN documented in this encounter [facility] 05-21-2024 Telephone encounter Note See Nurse triage note; TC patient, left message for patient to call back and speak with a triage nurse regarding patient's symptoms. Patient had requested appointment for pain in right arm and shoulder/tired all the time. Juhi Murillo RN [facility] 05-21-2024 Miscellaneous Notes See Nurse triage note; TC patient, left message for patient to call back and speak with a triage nurse regarding patient's symptoms. Patient had requested appointment for pain in right arm and shoulder/tired all the time. Juhi Murillo RN documented in this encounter [facility] 05-21-2024 Telephone encounter Note TC patient, left message for patient to call back and speak with a triage nurse regarding patient's symptoms. Patient had requested appointment for pain in right arm and shoulder/tired all the time. Juhi Murillo RN [facility] 05-13-2024 Telephone encounter Note The following [...] was identified. 05/13/2024 by Humberto Jackson MD [facility] 08-05-2024 Miscellaneous Notes The following approved [...] 2024 12:43 PM documented in this encounter [facility] 05-13-2024 Telephone encounter Note Prescription Refill [...] Daugherty MA May 13, 2024 12:43 PM [facility] 03-12-2024 Note HNO ID: [id number] Author: SHILOH PRADHAN LPN Service: ? Author Type: LICENSED NURSE Type: Progress Notes Filed: 03/12/2024 18:39 Note Text: Scan on 03/12/2024 2:26 PM by Carmenza Daley PA-C: Miscellaneous Procedures [facility] 03-12-2024 History of Present illness Narrative Scan on 03/12/2024 2:26 PM by Carmenza Daley PA-C: Miscellaneous Procedures documented in this encounter [facility] 03-11-2024 Note HNO ID: [id number] Author: TAM DAUGHERTY MA Service: ? Author Type: Parts Analyst Type: Progress Notes Filed: 03/11/2024 15:56 Note Text: Scan on 03/10/2024 2:56 PM by Carmenza Daley PA-C: Miscellaneous Procedures Scan on 03/10/2024 2:58 PM by Carmenza Daley PA-C: Miscellaneous Procedures Scan on 03/10/2024 7:39 PM by Carmenza Daley PA-C: Miscellaneous Procedures Tam Daugherty MA [facility] 03-11-2024 History of Present illness Narrative Scan on 03/10/2024 2:56 PM by Carmenza Daley PA-C: Miscellaneous Procedures Scan on 03/10/2024 2:58 PM by Carmenza Daley PA-C: Miscellaneous Procedures Scan on 03/10/2024 7:39 PM by Carmenza Daley PA-C: Miscellaneous Procedures Tam Daugherty MA documented in this encounter [facility] 02-28-2024 Telephone encounter Note Tessielo Mr. Delarosa Your molecular testing is benign and I advise repeat the ultrasound with your PCP in one year. Jacob Prado Junior, MD [facility] Work Phone: 02-28-2024 Miscellaneous Notes Tessielo Mr. Delarosa Your molecular testing is benign and I advise repeat the ultrasound with your PCP in one year. Jacob Prado Junior, MD documented in this encounter [facility] 02-28-2024 Telephone encounter Note Scan on 02/27/2024 4:49 PM by Provider, External, PA-C: Afirma Report 02/27/24 Received fax today with patients Afirma results, routed to Dr. Prado for review. [facility] 02-28-2024 Miscellaneous Notes Scan on 02/27/2024 4:49 PM by Provider, External, PA-C: Afirma Report 02/27/24 Received fax today with patients Afirma results, routed to Dr. Prado for review. documented in this encounter [facility] 02-24-2024 Telephone encounter Note The following [...] was identified. 02/24/2024 by Humberto Jackson MD [facility] 02-24-2024 Miscellaneous Notes The following approved [...] Tia Ibarra MA. documented in this encounter [facility] 02-24-2024 Telephone encounter Note Patient has [...] Please advise. Thank you. Tia Ibarra MA. [facility] 02-14-2024 Telephone encounter Note Called patient to discuss AFIRMA results. Nodule is benign and I recommend US in one year. Jacob Prado Junior, MD [facility] Work Phone: 02-14-2024 Miscellaneous Notes Called patient to discuss AFIRMA results. Nodule is benign and I recommend US in one year. Jacob Prado Junior, MD Afirma results from 01/31/24 received. File Link Scan on 02/12/2024 9:55 PM by ProviderCarmenza PA-C: Miscellaneous Lab Janett Velasco LPN documented in this encounter [facility] 02-13-2024 Telephone encounter Note Afirma results from 01/31/24 received. File Link Scan on 02/12/2024 9:55 PM by ProviderCarmenza PA-C: Miscellaneous Lab Janett Velasco LPN [facility] 01-31-2024 History of Present illness Narrative Jacob prado Jr, M.D. Department of Endocrine Surgery Endocrinology Metabolism [place] [facility] [address], [place] [address] ENDOCRINE SURGERY NEW PATIENT VISIT NAME: Bianca Delarosa CLINIC NO: [id number] : 1975 History of Present Illness: Bianca [...] prado Jr, M.D. Clinical Associate Endocrine Surgery [facility] documented in this encounter [facility] 01-24-2024 Miscellaneous Notes The following approved [...] Guzman Renteria LPN. documented in this encounter [facility] 01-24-2024 Miscellaneous Notes Unable to schedule with Endo Surgery. Transferred patient to the intake nurse per the EMQ at [phone] Please contact patient to schedule with Endocrine surgery due to increase growth of thyroid nodules. Thank you documented in this encounter [facility] 01-17-2024 Miscellaneous Notes Received a message [...] Aneta Calvin RN documented in this encounter [facility] 01-17-2024 Instructions Torres Monaco APRN.MECHANICAL MANUFACTURING TECHNICIAN - 01/17/2024 8:18 AM EDT Continue metformin [...] up in 3 months Torres Monaco, MSN, WEIGH BOX TENDER, TITLE I INSTRUCTIONAL ASSISTANT-C, CDE Endocrinology 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 Unable to take in supplies to monitor [...] as he cannot take supplies into the assisted but tries to consume a low carb [...] disorder with single episode, in partial remission ([facility]) 09/26/2018 Migraine without aura and without status migrainosus, not intractable 09/11/2015 Mood disorder ([facility]) 03/31/2014 Multiple thyroid nodules 02/27/[address] Lazaro 03/2018 Multiple thyroid nodules 02/27/2018 US 03/2020 per radiology no further f/u needed.. All benign Biopsy 03/[address] Lazaro. Benign. Obesity, Class II, BMI 35-39.9 10/21/2022 Obstructive sleep apnea syndrome 01/27/2017 On CPAP Other joint derangement, not elsewhere classified, lower leg 03/25/2013 Primary insomnia 07/28/2020 QT prolongation 04/20/2021 Seen [facility] 04/19/2021: Camargo to be benign and related to anti-depressants. No changes needed. TMJ (temporomandibular joint disorder) 03/31/2014 Right side Type 2 diabetes mellitus without complication, without long-term current use of insulin ([facility]) 01/19/2017 Well adult exam 12/17/2014 Last [...] daily at bedtime. 15 Each 11 Insulin Potwin, Disposable, (DROPLET PEN NEEDLE) 31 gauge x [...] choice. LIFETIME SUPPLIES. SD Card. Download to [email or web address]. (Patient not taking: Reported on 10/20/2023) 1 [...] Level: 4 - Moderate Torres Monaco, MSN, WEIGH BOX TENDER, TITLE I INSTRUCTIONAL ASSISTANT-C, CDE Endocrinology 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 documented in this encounter [facility] 12-16-2023 Miscellaneous Notes The following approved medication requests have been transmitted electronically. Requested Prescriptions Signed Prescriptions Disp Refills methylphenidate CD (METADATE CD) 10 mg biphasic capsule 30 capsule 0 Sig: Take 1 capsule by mouth once daily for 30 days. Humberto Jackson MD Please see pt's message. Carmelo Lopez LPN documented in this encounter [facility] 12-15-2023 Miscellaneous Notes Pt notified of same and will contact pharmacy. Carmelo Lopez LPN The prescription was sent on 12/06 with fill date of 12/07/23. Patient needs to contact pharmacy, Kenyatta Castaneda PA-C Please see pt's message regarding refill of Ritalin. Pt saw you 12/06/23. Carmelo Lopez LPN documented in this encounter [facility] 12-07-2023 Miscellaneous Notes The following approved [...] UA were ok. documented in this encounter [facility] 12-06-2023 History of Present illness Narrative [...] Primary insomnia 07/28/2020 QT prolongation 04/20/2021 Seen [facility] 04/19/2021: Camargo to be benign and related to anti-depressants. [...] 50 Units subcutaneously daily at bedtime. Insulin Potwin, Disposable, (DROPLET PEN NEEDLE) 31 gauge x [...] choice. LIFETIME SUPPLIES. SD Card. Download to [employer]. (Patient not taking: Reported on 10/20/2023) multivitamin [...] Abs Lymph 1.00 - 4.00 k/uL 3.15 Cooper% % 6.7 Abs Cooper <0.87 k/uL 0.57 Eosin% % 1.4 Abs [...] Negative Negative Ketones, Urine Negative Negative Specific [place], Ur 1.005 - 1.030 1.010 Hemoglobin/Blood,Ur Negative [...] BMI 37.49 kg/(m^2) - Patient was counseled [id number] by myself (the billing provider) for the [...] immunization - ICD9: V03.89, ICD10: Z23 - PFIZER-BIONTImpermium COVID-19 VACCINE (2022- SEASON) AGE 12+ YR: [...] Humberto Jackson MD documented in this encounter [facility] 12-01-2023 Miscellaneous Notes STACY Isaac called multiple lines to through at [employer]. Abdulaziz approved the freestyle evert 3 sensors and he last filled on 11/25/23. Closed Faxed Appeal letter and last office note to Abdulaziz [facility] at [phone] transmission ok Keep open Rx sent They [...] for the FreeStyle Evert 3 Sensors from [employer] ([employer]) Reference # [id number] Reason: We denied your request because we [...] receipt of this letter (10/03/23 received). REF# [id number] Call [facility] once we have the updated information at [phone] to initiate, and they will likely supply a fax to send it to in order to process. Torres, Patients last OV and A1C was in 06/2023 when he was started on the Evert 3. He does not have another visit until 10/10/23. Completed PA via CMM for RX Freestyle Evert 3 Sensors. Will await approval / denial. BIANCA DELAROSA (Bland: [id number]) PA Need Help? Call us at Status sent iconSent to Plan today Drug FreeStyle Evert 3 Sensor ePA cloud logo Form [facility] Electronic PA Form (2016 NCPDP) documented in this encounter [facility] 09-11-2023 Miscellaneous Notes Received a faxed notification from Abdulaziz that patient has been APPROVED FOR MOUNJARO 2.5 MG / 0.5 MG. REF# [id number] Closed. Received notification from Abdulaziz that they [...] hyperglycemia. Refaxed the last office notes to [phone] (12 pages) Transmission Okx2 Faxed [phone] Transmission Okx2 Prior Authorization: Medication/Dose: Mounjaro 2.5 mg/0.5 mL Diagnosis: Type 2 DM E11.9 Provider: Joselyn Completed Via: over the phone ([facility]) Pending PA REF# [id number] Insurance: Abdulaziz BC/BS Pharmacy: [facility] Notes: Spoke to labor service representative Sumaya at [facility] and completed clinical questionnaire over the phone. Will receive notification of outcome within 5 business days via fax. Also faxed last clinical office note to [phone]. Transmission ok X2. 12 pages. documented in this encounter [facility] 08-24-2023 Miscellaneous Notes Patient phones requesting refills as follows: Script qty adjusted to the proper number. Patient uses 2 a day. Requested Prescriptions Pending Prescriptions Disp Refills Insulin Potwin, Disposable, (DROPLET PEN NEEDLE) 31 gauge x 3/16 200 Each 3 Sig: Use 2 PEN NEEDLES to inject MEDICATION subcutaneously daily Please review and advise. Marlin Carey MA documented in this encounter [facility] 08-14-2023 Miscellaneous Notes Left message for patient to return call to office Chuy Jackson Cma Please let patient know labs are stable. Lipid panel has improved. Patient should continue current medications. documented in this encounter [facility] 07-17-2023 Miscellaneous Notes Please review and advise. documented in this encounter [facility] 06-05-2023 Miscellaneous Notes The following approved [...] Last refill: 03/2023 documented in this encounter [facility] 04-15-2023 Procedure note [facility] 04-15-2023 Note [facility] Medical Records Department [address] [place] [address] Discharge Summary 04/15/23 1055 MR#: [id number] Acct: [id number] Name: BIANCA DELAROSA Rep #: [id number] : 1975 47 From: Prince Villanueva MD PCP: Dr. Humberto Jackson MD Status:ADM KEYANA [facility] Prov[facility] Date of Admission: 04/14/23 Primary Care [...] (Auto) 73.5 H, Lymph % (Auto) 19.3, Cooper % (Auto) 5.8, Eos % (Auto) 0.6, Baso % (Auto) 0.5, Absolu te Neuts (auto) 7.2, Absolute Lymphs (auto) 1.89, Nucleated RBC % 0, Sodium 135 L, Po (more content not included)... [facility] 04-14-2023 Discharge summary Note Date/Time April 14, 2023 2:10p m [facility] Medical Records Department [address] [place] [address] Emergency Department Summary 04/14/23 MR#: [id number] Acct: [id number] Name: BIANCA DELAROSA Rep #:[id number] : 1975 47 From: Jil CLAY PCP: Dr. Humberto Jackson MD Status:[facility] Location: [facility] AC-TB A-2 HPI <DANNA Welch - Last [...] <DANNA Welch - Last Filed: 04/14/23 17:06> [facility] Medical History (Updated 04/14/23 @ 17:03 [...] Method Room Air Room Air Room Air [facility] <DANNA Welch - Last Filed: 04/14/23 17:06> [facility] Narrative Medical decision making narrative: History [...] (Auto) 73.5 H Lymph % (Auto) 19.3 Cooper % (Auto) 5.8 Eos % (Auto) 0.6 [...] Merchant, DO - Last Filed: 04/14/23 15:59> [facility] Narrative Medical decision making narrative: History [...] (Auto) 73.5 H Lymph % (Auto) 19.3 Cooper % (Auto) 5.8 Eos % (Auto) 0.6 [...] your Primary Care Provider. Call [facility] ([phone]) or report to the closest Emergency Room. Call 911 if necessary. 04/14/23 1706 <Electronically signed by Jil Scott PA> Cosigner Signature (if applicable): 04/14/23 1559 <Electronically signed by Macey Merchant DO> CC: Dr. Humberto Jackson MD ~ Signed [facility] Work Phone: 1(508) 905-343607-07-2023 History and physical note Author Prince Villanueva [facility] April 14, 2023 5:05pm Note Date/Time April 14, 2023 4:55p [facility] Medical Records Department [address] [place] [address] History & Physical Exam 04/14/23 1651 MR#: [id number] Acct: [id number] Name: BIANCA DELAROSA Rep #:[id number] : 1975 47 From: Prince Blanton PCP: Dr. Humberto Jackson MD Status:[facility] Location: [facility] AC-TB A-2 HPI - General General Date of Service: 07/07/23 HPI Narrative BIANCA RUEBENSAAL, is a 47 M who presents to [facility] ER under direction from his PCP [...] last year and was without remarkable findings. [facility] Medical History (Updated 04/14/23 @ 17:03 [...] % (Auto) 73.5 H, Lymph % (Auto) 19.3,Cooper % (Auto) 5.8, Eos % (Auto) 0.6, [...] and drainage. Charges/Coding Visit Charges Inpatient E&M: 54799 Init Hosp L2 04/14/23 1705 <Electronically signed by Prince Villanueva MD> Cosigner Signature (if applicable): CC: Dr. Humberto Jackson MD; Dr. Prince Villanueva MD~ Signed [facility] Work Phone: 1(190) 935-203007-07-2023 [facility] Medical Records Department [address] [place] [address] History Physical Exam 04/14/23 1651 MR#: [id number] Acct: [id number] Name: BIANCA DELAROSA Rep #: [id number] : 1975 47 From: Prince Villanueva MD PCP: Dr. Humberto Jackson MD Status:[facility] Location: [place] [address] HPI - General General Date of Service: 04/14/23 HPI Narrative BIANCA DELAROSA, is a 47 M who presents to [facility] ER under direction from his PCP [...] last year and was without remarkable findings. [facility] Medical History (Updated 04/14/23 @ 17:03 [...] GI GI Narrative: Cellulitic (more content not included)...[facility]07-07-2023 Discharge summary Author Jil Scott [facility] April 14, 2023 5:06pm Note Date/Time April 14, 2023 2:10p m [facility] Medical Records Department [address] [place] [address] Emergency Department Summary 04/14/23 MR#: [id number] Acct: [id number] Name: BIANCA DELAROSA Rep #:[id number] : 1975 47 From: Jil CLAY PCP: Dr. Humberto Jackson MD Status:[facility] Location: [facility] AC-TB A-2 HPI <DANNA Welch - Last [...] week because his arm sensor fell off. [facility] <DANNA Welch - Last Filed: 04/14/23 17:06> [facility] Medical History (Updated 04/14/23 @ 17:03 [...] <DANNA Welch - Last Filed: 04/14/23 17:06> [facility] MDM Narrative Medical decision making narrative: [...] (Auto) 73.5 H Lymph % (Auto) 19.3 Cooper % (Auto) 5.8 Eos % (Auto) 0.6 [...] Merchant, DO - Last Filed: 04/14/23 15:59> [facility] Narrative Medical decision making narrative: History [...] (Auto) 73.5 H Lymph % (Auto) 19.3 Cooper % (Auto) 5.8 Eos % (Auto) 0.6 [...] your Primary Care Provider. Call [facility] ([phone]) or report to the closest Emergency Room. Call 911 if necessary. 04/14/23 1706 <Electronically signed by Jil CLAY> Cosigner Signature (if applicable): 04/14/23 1559 <Electronically signed by Macey Merchant DO> CC: Dr. Humberto Jackson MD ~ Signed [facility] Work Phone: 1(548) 823-382907-07-2023 History of Present illness Narrative* Dominik Kelley, WEIGH BOX TENDER.MECHANICAL MANUFACTURING TECHNICIAN - 04/14/2023 1:45 PM EDT Chief Complaint [...] Primary insomnia 07/28/2020 QT prolongation 04/20/2021 Seen [facility] 04/19/2021: Camargo to be benign and related to anti- depressants. No changes needed. TMJ (temporomandibular joint disorder) 03/31/2014 Right side Type 2 diabetes mellitus without complication, without long-term current use of insulin ([facility]) 01/19/2017 Well adult exam 12/17/2014 Last [...] mouth once daily for 30 days. Insulin Potwin, Disposable, (DROPLET PEN NEEDLE) 31 gauge x [...] patient's choice. LIFETIME SUPPLIES.SD Card. Download to [employer]. multivitamin tablet Take 1 tablet by mouth once daily. fluticasone (FLONASE) 50 mcg/actuation nasal spray Use 1 Turtlepoint in each nostril once daily. Rinse mouth [...] and abrupt onset of cyst. Dominik Kelley APRN.MECHANICAL MANUFACTURING TECHNICIAN [facility] Inst[facility]* Patient Instructions* Kenyatta Castaneda PA-C - 04/10/2023 8:31 AM EDT Take a Vitamin B complex (with atleast 30mg of B6) 3 times a day for nocturnal leg cramps. [facility] History of Present illness Narrative* Kenyatta [...] status migrainosus, not intractable 09/11/2015 Mood disorder ([facility]) 03/31/2014 Multiple thyroid nodules 02/27/[address] Lazaro 03/2018 Multiple thyroid nodules 02/27/2018 US 03/2020 per radiology no further f/u needed.. All benign Biopsy 03/[address] Lazaro. Benign. Obesity, Class II, BMI 35-39.9 10/21/2022 Obstructive sleep apnea syndrome 01/27/2017 On CPAP Other joint derangement, not elsewhere classified, lower leg 03/25/2013 Primary insomnia 07/28/2020 QT prolongation 04/20/2021 Seen [facility] 04/19/2021: Camargo to be benign and related to anti- [...] mouth once daily for 30 days. Insulin Potwin, Disposable, (DROPLET PEN NEEDLE) 31 gauge x [...] (FLONASE) 50 mcg/actuation nasal spray Use 1 Turtlepoint in each nostril once daily. Rinse mouth after use. esomeprazole (NEXIUM) 40 mg capsule Take 40 mg by mouth once daily. CPAP AUTO PAP 5-20 cmH20, CHIN STRAP, heated HUMIDITY, mask of patient's choice. LIFETIME SUPPLIES.SD Card. Download to [email or web address]. No current facility-administered medications on file prior [...] Stable. Kenyatta Castaneda PA-C [facility] Miscellaneous Notes* Telephone Encounter - Humberto [...] 04/10/23 Carmelo Lopez LPN documented in this encounterToledo Hospital06-07-2023 Miscellaneous Notes* Telephone Encounter - Janel Dumont RN - 03/15/2023 8:37 AM EDT Requester: Pharmacy Last Visit in Endocrinology: Provider name: Torres Monaco CNP , Date 01/27/2023 Next Scheduled Appt in Endo: 03/14/2023 Last Refill: 06/07/2022 Number of Refills given: 3 Requested Prescriptions Pending Prescriptions Disp Refills Insulin Potwin, Disposable, (DROPLET PEN NEEDLE) 31 gauge x 3/16 [Pharmacy Med Name: DROPLET PEN NEEDLE 31GX3/16] 100 Each 3 Sig: Use 2 PEN NEEDLES to inject MEDICATION subcutaneously daily Please review and advise. Janel Dumont RN documented in this encounterToledo Hospital04-21-2023 Instructions* Patient Instructions* Torres Monaco APRN.CHRISTOPHER - 01/27/2023 4:01 PM EDT Continue metformin 2. Humalog 75/25: Breakfast 30 units Dinner 30 units After a few days increase again to: Breakfast 35 units Dinner 35 units 3. Let me know how things are going in 2 wks. 4. Follow up in 3 months. Torres Monaco, MSN, WEIGH BOX TENDER, TITLE I INSTRUCTIONAL ASSISTANT-C, CDE Endocrinology [facility] Office [facility]/[address] [place] [address] Fax: documented in this encounterToledo Hospital04-21-2023 Procedure note* Marlin Carey MA - 01/27/2023 3:53 PM EDTProcedure(s): EXTERNAL WALLPAPERER HELPER, CGM SYS Images from the original note were not included. 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 Unable to take in supplies to monitor his BG at lunch and does not eat breakfasttill later so he was missing both doses of humalog during the work day. Changed to mixed insulin to alleviate the issue. States he is allowed to use a CGM and have his phone--Tynt 3 rx sent at the last visit [...] Primary insomnia 07/28/2020 QT prolongation 04/20/2021 Seen [facility] 04/19/2021: Camargo to be benign and related to anti- [...] x 30 days) 30 tablet 5 Insulin Potwin, Disposable, (BD ULTRAFINE III MINI PEN) 31 gauge x 3/16 Use two pen needles [id number] Each 3 albuterol HFA (PROAIR HFA) 90 [...] (FLONASE) 50 mcg/actuation nasal spray Use 1 Turtlepoint in each nostril once daily. Rinse mouth [...] patient's choice. LIFETIME SUPPLIES.SD Card. Download to [email or web address]. (Patient not taking: Reported on 01/27/2023) 1 [...] complication, without long-term current use of insulin ([facility]) (primary encounter diagnosis) Comment: Glycemic control is poor. Issues with cost of SGLT1 and GLP1's. Needs to use mixed insulinbecause he cannot take meal insulin into long term he works at. Plan: HEMOGLOBIN A1C (POC), [...] which included preparing to see the patient, [id number] patient care, completing clinical documentation, obtaining and/or reviewing separately obtained history, performing a medically appropriate examination, counseling and educating the pat ient/family/caregiver, ordering medications, tests, or procedures, and communicating results to thepatient/family/caregiver. Torres Monaco, MSN, WEIGH BOX TENDER, TITLE I INSTRUCTIONAL ASSISTANT-C, CDE Endocrinology [facility] Medical Office [facility]/[address], [address] [place] [address] Fax: documented in this encounterToledo Hospital04-03-2023 Instructions* Patient Instructions* Dominik Kelley APRN.CHRISTOPHER - 01/09/2023 8:26 AM EDT Continue Ritalin Follow up in 3 months documented in this encounterToledo Hospital04-03-2023 History of Present illness Narrative* Dominik [...] Primary insomnia 07/28/2020 QT prolongation 04/20/2021 Seen [facility] 04/19/2021: Camargo to be benign and related to anti- [...] taken 3mg daily x 30 days) Insulin Potwin, Disposable, (BD ULTRAFINE III MINI PEN) 31 [...] patient's choice. LIFETIME SUPPLIES.SD Card. Download to [email or web address]. multivitamin tablet Take 1 tablet by mouth once daily. fluticasone (FLONASE) 50 mcg/actuation nasal spray Use 1 Turtlepoint in each nostril once daily. Rinse mouth [...] MG BIPHASIC 50-50 CAPSULE,EXTENDED RELEASE Dominik Kelley APRN.MECHANICAL MANUFACTURING TECHNICIAN documented in this encounterToledo Hospital03-02-2023 Miscellaneous Notes* Telephone Encounter - Gissel [...] diet and increased exercise. documented in this encounterToledo Hospital03-01-2023 History of Present illness Narrative* Humberto [...] going to try to get transferred to [facility]> Has not worn his CPAP since before [...] Primary insomnia 07/28/2020 QT prolongation 04/20/2021 [facility] 04/19/2021: Camargo to be benign and related to anti- depressants. No changes needed. TMJ (temporomandibular joint disorder) 03/31/2014 Right side Type 2 diabetes mellitus without complication, without long-term current use of insulin ([facility]) 01/19/2017 Well adult exam 12/17/2014 Last [...] taken 3mg daily x 30 days) Insulin Potwin, Disposable, (BD ULTRAFINE III MINI PEN) 31 [...] patient's choice. LIFETIME SUPPLIES.SD Card. Download to [email or web address]. multivitamin tablet Take 1 tablet by mouth once daily. fluticasone (FLONASE) 50 mcg/actuation nasal spray Use 1 Turtlepoint in each nostril once daily. Rinse mouth [...] Abs Lymph 1.00 - 4.00 k/uL 3.03 Cooper% % 6.3 Abs Cooper <0.87 k/uL 0.48 Eosin% % 1.4 Abs [...] routine Humberto Jackson MD documented in this encounterToledo Hospital01-20-2023 Miscellaneous Notes* Telephone Encounter - Gwen Herbert Ma - 10/28/2022 3:34 PM EST Images from the original note were not included. APPROVED Approved [id number] Prior authorization approved Payer: Abdulaziz CLAY Case: [id number], Status: Approved, Coverage Starts on: 10/28/2022 12:00:00 AM, Coverage Ends on: 10/28/2023 12:00:00 AM. Approval Details Authorization number: [id number] Authorized from October 28, 2022 to October [...] to its destination. To be filled at: [facility] #[id number] [place] [address] - [address] [place], [place] [id number] Pharmacy Benefits BIANCA DELAROSA BB CDH-N [id number] ([facility]) Covered: Retail, Mail Order, Specialty Unknown: Long-Term Care Group ID: [id number] Group name: [facility] BIN: [id number] PCN: WG : [id number] Legal sex: M Address: [address] [place] [address] documented in this encounterToledo Hospital11-22-2022 Nurse Note* Tami Olsen RN - 08/30/2022 8:02 AM EST Arrived in phase II via cart in left lateral position, eyes closed, skin warm and dry, responds to verbal stimuli, denies pain or nausea, abdomen soft and non distended. Oxygen saturation 88-90% on room air upon arrival, oxygen applied per NC 2L, continues to rest comfortably on left side. documented in this encounterToledo Hospital11-22-2022 History and physical note * Johanna [...] Primary insomnia 07/28/2020 QT prolongation 04/20/2021 Seen [facility] 04/19/2021: Camargo to be benign and related to anti- depressants. No changes needed. TMJ (temporomandibular joint disorder) 03/31/2014 Right side Type 2 diabetes mellitus without complication, without long-term current use of insulin ([facility]) 01/19/2017 Well adult exam 12/17/2014 Last [...] units breakfast and 25 units dinner Insulin Potwin, Disposable, (BD ULTRAFINE III MINI PEN) 31 [...] (FLONASE) 50 mcg/actuation nasal spray Use 1 Turtlepoint in each nostril once daily. Rinse mouth after use. esomeprazole (NEXIUM) 40 mg capsule Take 40 mg by mouth once daily. CPAP AUTO PAP 5-20 cmH20, CHIN STRAP, heated HUMIDITY, mask of patient's choice. LIFETIME SUPPLIES.SD Card. Download to [email or web address]. (Patient not taking: Reported on 07/22/2022) ALLERGIES: [...] entered by the nurse and reviewed by de Nursing Notes: Nunu Blackwood RN 07/22/2022 4:32 [...] disorder with single episode, in partial remission ([facility]) 09/26/2018 Migraine without aura and without status migrainosus, not intractable 09/11/2015 Mood disorder ([facility]) 03/31/2014 Multiple thyroid nodules 02/27/[address] Lazaro 03/2018 Multiple thyroid nodules 02/27/2018 US 03/2020 per radiology no further f/u needed.. All benign Biopsy 03/[address] Lazaro. Benign. Obstructive sleep apnea syndrome 01/27/2017 On CPAP Other joint derangement, not elsewhere classified, lower leg 03/25/2013 Primary insomnia 07/28/2020 QT prolongation 04/20/2021 Seen [facility] 04/19/2021: Camargo to be benign and related to anti- depressants. No changes needed. TMJ (temporomandibular joint disorder) 03/31/2014 Right side Type 2 diabetes mellitus without complication, without long-term current use of insulin ([facility]) 01/19/2017 Well adult exam 12/17/2014 Last [...] units breakfast and 25 units dinner Insulin Potwin, Disposable, (BD ULTRAFINE III MINI PEN) 31 [...] (FLONASE) 50 mcg/actuation nasal spray Use 1 Turtlepoint in each nostril once daily. Rinse mouth after use. esomeprazole (NEXIUM) 40 mg capsule Take 40 mg by mouth once daily. CPAP AUTO PAP 5-20 cmH20, CHIN STRAP, heated HUMIDITY, mask of patient's choice. LIFETIME SUPPLIES.SD Card. Download to [email or web address].com. (Patient not taking: Reported on 07/22/2022) ALLERGIES: [...] entered by the nurse and reviewed by de Nursing Notes: Nunu Blackwood RN 07/22/2022 4:32 [...] colon cancer in father (primary encounter diagnosis) Jhoanna Bliss MD documented in this encounterToledo Hospital11-09-2022 History of Present illness Narrative* Kenyatta [...] Primary insomnia 07/28/2020 QT prolongation 04/20/2021 Seen [facility] 04/19/2021: Camargo to be benign and related to anti- [...] units breakfast and 25 units dinner Insulin Potwin, Disposable, (BD ULTRAFINE III MINI PEN) 31 [...] (FLONASE) 50 mcg/actuation nasal spray Use 1 Turtlepoint in each nostril once daily. Rinse mouth after use. esomeprazole (NEXIUM) 40 mg capsule Take 40 mg by mouth once daily. CPAP AUTO PAP 5-20 cmH20, CHIN STRAP, heated HUMIDITY, mask of patient's choice. LIFETIME SUPPLIES.SD Card. Download to [email or web address].com. (Patient not taking: Reported on 07/22/2022) No [...] SURGERY Kenyatta Castaneda PA-C documented in this encounterToledo Hospital11-03-2022 History of Present illness Narrative* Kenyatta [...] disorder with single episode, in partial remission ([facility]) 09/26/2018 Migraine without aura and without status migrainosus, not intractable 09/11/2015 Mood disorder ([facility]) 03/31/2014 Multiple thyroid nodules 02/27/[address] Lazaro 03/2018 Multiple thyroid nodules 02/27/2018 US 03/2020 per radiology no further f/u needed.. All benign Biopsy 03/[address] Lazaro. Benign. Obstructive sleep apnea syndrome 01/27/2017 On CPAP Other joint derangement, not elsewhere classified, lower leg 03/25/2013 Primary insomnia 07/28/2020 QT prolongation 04/20/2021 Seen [facility] 04/19/2021: Camargo to be benign and related to anti- depressants. No changes needed. TMJ (temporomandibular joint disorder) 03/31/2014 Right side Type 2 diabetes mellitus without complication, without long-term current use of insulin ([facility]) 01/19/2017 Well adult exam 12/17/2014 Last done:11/16/2019 ALLERGIES Topamax [Topiramate], Celexa [Citalopram Hydrobromide], Effexor [Venlafaxine Analogues], Reglan [Metoclopramide Hcl], and Zoloft [Sertraline Hcl] MEDICATIONS Current Outpatient Medications Medication Sig sulfamethoxazole-trimethoprim (BACTRIM DS) 800-160 mg per tablet Take 1 tablet by mouth twice dailyfor 10 days. insulin lispro protamine-insulin lispro (HumaLOG 75/25) pen Inject subcutaneously 25 units breakfast and 25 units dinner Insulin Potwin, Disposable, (BD ULTRAFINE III MINI PEN) 31 [...] (FLONASE) 50 mcg/actuation nasal spray Use 1 Turtlepoint in each nostril once daily. Rinse mouth after use. esomeprazole (NEXIUM) 40 mg capsule Take 40 mg by mouth once daily. CPAP AUTO PAP 5-20 cmH20, CHIN STRAP, heated HUMIDITY, mask of patient's choice. LIFETIME SUPPLIES.SD Card. Download to [email or web address].com. (Patient not taking: Reported on 07/22/2022) No [...] 6 MO - 64 YRS IM - First Coverage-[employer] COVID-19 BIVALENT BOOSTER VACCINE, AGE 12+ YR Kenyatta Castaneda PA-C documented in this encounterToledo Hospital10-28-2022 Miscellaneous Notes* Telephone Encounter - Tam Daugherty MA - 08/05/2022 8:04 AM EDT Robin You scheduled next week for a follow up with your. Patient was seen yesterday in . Tam Daugherty MA documented in this encounterToledo Hospital10-27-2022 History of Present illness Narrative* Emma Sheets APRN.MECHANICAL MANUFACTURING TECHNICIAN - 08/04/2022 9:43 AM EDT SUBJECTIVE: Bianca [...] Primary insomnia 07/28/2020 QT prolongation 04/20/2021 Seen [facility] 04/19/2021: Camargo to be benign and related to anti- depressants. No changes needed. TMJ (temporomandibular joint disorder) 03/31/2014 Right side Type 2 diabetes mellitus without complication, without long-term current use of insulin ([facility]) 01/19/2017 Well adult exam 12/17/2014 Last [...] 25 units dinner 15 mL 5 Insulin Potwin, Disposable, (BD ULTRAFINE III MINI PEN) 31 gauge x 3/16 Use two pen needles [id number] Each 3 Fenofibrate (LOFIBRA) 54 mg tablet [...] (FLONASE) 50 mcg/actuation nasal spray Use 1 Turtlepoint in each nostril once daily. Rinse mouth after use. 1 Bottle 11 esomeprazole (NEXIUM) 40 mg capsule Take 40 mg by mouth once daily. CPAP AUTO PAP 5-20 cmH20, CHIN STRAP, heated HUMIDITY, mask of patient's choice. LIFETIME SUPPLIES.SD Card. Download to [email or web address].com. (Patient not taking: Reported on 07/22/2022) 1 [...] L02.91 Emma Sheets APRN.CHRISTOPHER documented in this encounterToledo Hospital10-12-2022 History of Present illness Narrative* Heather Garcia LPN - 07/20/2022 10:42 AM EDT Patient presents for Hepatitis B vaccine. Denies any problems at this time. Tolerated injection well. Heather Garcia LPN documented in this encounterToledo Hospital09-02-2022 History of Present illness Narrative* Heather Garcia LPN - 06/10/2022 3:43 PM EDT Patient presents for Hepatitis B vaccine. Denies any problems at this time. Tolerated injection well. Heather Garcia LPN documented in this encounterToledo Hospital08-30-2022 Instructions* Patient Instructions* Torres Monaco APRN.CNP [...] Follow up in 3 months BUCK Dale, WEIGH BOX TENDER, TITLE I INSTRUCTIONAL ASSISTANT-C, CDE Endocrinology [facility] Office [facility]/[place] [address] Fax: documented in this encounterToledo Hospital08-30-2022 History of Present illness Narrative* Torres [...] thyroid nodules, MIKE, obesity Works in a long term. Unable to take in supplies to monitor [...] disorder with single episode, in partial remission ([facility]) 09/26/2018 Migraine without aura and without status migrainosus, not intractable 09/11/2015 Mood disorder ([facility]) 03/31/2014 Multiple thyroid nodules 02/27/[address] Lazaro 03/2018 Multiple thyroid nodules 02/27/2018 US 03/2020 per radiology no further f/u needed.. All benign Biopsy 03/[address] Lazaro. Benign. Obstructive sleep apnea syndrome 01/27/2017 On CPAP Other joint derangement, not elsewhere classified, lower leg 03/25/2013 Primary insomnia 07/28/2020 QT prolongation 04/20/2021 Seen [facility] 04/19/2021: Camargo to be benign and related to anti- [...] daily with breakfast. 90 tablet 3 Insulin Potwin, Disposable, (BD ULTRAFINE III MINI PEN) 31 gauge x 3/16 Use one pen needles [id number] Each 3 albuterol HFA (PROAIR HFA) 90 [...] (FLONASE) 50 mcg/actuation nasal spray Use 1 Turtlepoint in each nostril once daily. Rinse mouth [...] patient's choice. LIFETIME SUPPLIES.SD Card. Download to [email or web address].com. (Patient not taking: No sig reported) 1 [...] complication, without long-term current use of insulin ([facility]) (primary encounter diagnosis) Comment: Glycemic control is poor. SGLT2 and GLP1 are cost prohibitive. He cannot take a prandial insulin into work with him a a long term. Will switch to mixed insulin. We reviewed the timing of injections in relation to meals and when to check BG levels. Advised he is to ensure he is eating when taking the insulin to avoid hypoglycemia. Plan: insulin lispro protamine-insulin lispro (HumaLOG 75/25) pen, Insulin Potwin, Disposable, (BD ULTRAFINE III MINI PEN) 31 [...] Level: 3 - Low Torres Monaco, MSN, WEIGH BOX TENDER, TITLE I INSTRUCTIONAL ASSISTANT-C, CDE Endocrinology [facility]/[address], [address] [place], [place] [address] Fax: documented in this encounterToledo Hospital08-29-2022 Miscellaneous Notes* Telephone Encounter - Tam [...] ok except spilling sugar. documented in this encounterToledo Hospital08-27-2022 History of Present illness Narrative* Humberto [...] Primary insomnia 07/28/2020 QT prolongation 04/20/2021 [facility] 04/19/2021: Camargo to be benign and related to anti- [...] tablet by mouth daily with breakfast. Insulin Potwin, Disposable, (BD ULTRAFINE III MINI PEN) 31 [...] (FLONASE) 50 mcg/actuation nasal spray Use 1 Turtlepoint in each nostril once daily. Rinse mouth [...] patient's choice. LIFETIME SUPPLIES.SD Card. Download to Iglu.com. (Patient not taking: Reported on 03/04/2021 ) [...] Humberto Jackson MD documented in this encounterCleveland [id number] Miscellaneous Notes* Telephone Encounter - Juhi Murillo RN - 04/28/2022 8:51 AM EDT Patient called and notified that appointment needs to be made. Patient set up appointment for 06/04 * Telephone Encounter - Augustina Wilkinson LPN - 04/28/2022 8:18 AM EDT Left a message for pt to call the office and ask to speak to a nurse. Augustina Wlikinson LPN * Telephone Encounter - Humberto Jackson [...] advise. Dimple Castellon LPN documented in this encounterToledo Hospital07-21-2022 Miscellaneous Notes* Telephone Encounter - Aneta Calvin RN - 04/28/2022 7:49 AM EDT Please review. Patient is referring to Richelle. documented in this encounterToledo Hospital07-20-2022 Miscellaneous Notes* Telephone Encounter - Humberto aJckson MD - 04/27/2022 8:49 PM EDT The [...] none Tia Ibarra Ma documented in this encounterToledo Hospital05-27-2022 Instructions* Patient Instructions* Torres Monaco APRN.[facility] - 03/04/2022 8:42 AM EDT 1. Continue glimepiride, jardiance, metformin. 2. Continue lantus 40 units daily at bedtime. 3. Stop humalog 4. Start ozempic 0.25 mg weekly x 4 wks then increase to 0.5 mg weekly. 5. Follow up in 3 months with labs prior Torres Monaco, MSN, WEIGH BOX TENDER, TITLE I INSTRUCTIONAL ASSISTANT-C, CDE Endocrinology [facility] Office [facility]/[address] [place], [place] [address] Fax: documented in this encounterToledo Hospital05-27-2022 History of Present illness Narrative* Torres [...] A1C today is 10.5 Works in a long term. 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 Reports always feeling hungry. History in addition to diabetes:dyslipidemia, ISABELLA, GERD, depression, migraine, thyroid nodules, MIKE, obesity He is under the care of cardiology, ortho. Had his knee surgery at [facility]. Walks about a mile per day. [...] disorder with single episode, in partial remission ([facility]) 09/26/2018 Migraine without aura and without status migrainosus, not intractable 09/11/2015 Mood disorder ([facility]) 03/31/2014 Multiple thyroid nodules 02/27/[address] Lazaro 03/2018 Multiple thyroid nodules 02/27/2018 US 03/2020 per radiology no further f/u needed.. All benign Biopsy 03/[address] Lazaro. Benign. Obstructive sleep apnea syndrome 01/27/2017 On CPAP Other joint derangement, not elsewhere classified, lower leg 03/25/2013 Primary insomnia 07/28/2020 QT prolongation 04/20/2021 Seen [facility] 04/19/2021: Camargo to be benign and related to anti- depressants. No changes needed. TMJ (temporomandibular joint disorder) 03/31/2014 Right side Type 2 diabetes mellitus without complication, without long-term current use of insulin ([facility]) 01/19/2017 Well adult exam 12/17/2014 Last [...] 35 units daily 45 mL 3 Insulin Potwin, Disposable, (BD ULTRAFINE III MINI PEN) 31 [...] (FLONASE) 50 mcg/actuation nasal spray Use 1 Turtlepoint in each nostril once daily. Rinse mouth after use. 1 Bottle 11 esomeprazole (NEXIUM) 40 mg capsule Take 40 mg by mouth once daily. CPAP AUTO PAP 5-20 cmH20, CHIN STRAP, heated HUMIDITY, mask of patient's choice. LIFETIME SUPPLIES.SD Card. Download to Iglu.com. (Patient not taking: Reported on 03/04/2021 ) [...] complication, without long-term current use of insulin ([facility]) (primary encounter diagnosis) Comment: Glycemic control has worsened. We were using prandial insulin previously in order to improve his BG so he could have knee surgery which has been done. Will add GLP-1. Risks and benefits reviewed. He is limited on what supplies/medications he can take into the long term he works at. Patient agrees to start [...] tablet, glimepiride (AMARYL) 4 mg tablet, Insulin Potwin, Disposable, (BD ULTRAFINE III MINI PEN) 31 [...] Level: 4 - Moderate Torres Monaco APRN, TITLE I INSTRUCTIONAL ASSISTANT-C, CDE Endocrinology [facility] Office [facility]/[address] [place] [address] Fax: documented in this encounterToledo Hospital04-26-2022 Miscellaneous Notes* Telephone Encounter - Berkley [...] TAMIKO: No Please review and advise. Regina Prarish MA documented in this encounterToledo Hospital03-30-2022 Miscellaneous Notes* Telephone Encounter - Humberto [...] appointment. Carmelo Lopez LPN documented in this encounterToledo Hospital03-30-2022 Miscellaneous Notes* Telephone Encounter - Carmelo Lopez LPN - 01/05/2022 12:27 PM EDT Med request was combined with pt's other medication request and sent to pcp. Carmelo Lopez LPN documented in this encounterToledo Hospital01-07-2022 History of Present illness Narrative* Roro [...] 15, 2021 8:32 AM documented in this encounterToledo Hospital01-13-2021 History of Past illness Narrative* Problem Noted Date Resolved Date Joint stiffness of right lower leg 10/21/2020 12/22/2020 Right leg weakness 10/21/2020 12/22/2020 documented as of this encounter (statuses as of 01/05/2022) [facility]01-[facility] of Past illness Narrative* Problem Noted Date Resolved Date Joint stiffness of right lower leg 10/21/2020 12/22/2020 Right leg weakness 10/21/2020 12/22/2020 documented as of this encounter (statuses as of 01/05/2022) [facility]01-[facility] of Past illness Narrative* Problem Noted Date Resolved Date Joint stiffness of right lower leg 10/21/2020 12/22/2020 Right leg weakness 10/21/2020 12/22/2020 documented as of this encounter (statuses as of 02/01/2022) [address]13-2021 History of Past illness Narrative* Problem Noted Date Resolved Date Joint stiffness of right lower leg 10/21/2020 12/22/2020 Right leg weakness 10/21/2020 12/22/2020 documented as of this encounter (statuses as of 03/04/2022) [address]13-2021 History of Past illness Narrative* Problem Noted Date Resolved Date Joint stiffness of right lower leg 10/21/2020 12/22/2020 Right leg weakness 10/21/2020 12/22/2020 documented as of this encounter (statuses as of 04/28/2022) [address]13-2021 History of Past illness Narrative* Problem Noted Date Resolved Date Joint stiffness of right lower leg 10/21/2020 12/22/2020 Right leg weakness 10/21/2020 12/22/2020 documented as of this encounter (statuses as of 04/28/2022) [address]13-2021 History of Past illness Narrative* Problem Noted Date Resolved Date Joint stiffness of right lower leg 10/21/2020 12/22/2020 Right leg weakness 10/21/2020 12/22/2020 documented as of this encounter (statuses as of 04/28/2022) [address]13-2021 History of Past illness Narrative* Problem Noted Date Resolved Date Joint stiffness of right lower leg 10/21/2020 12/22/2020 Right leg weakness 10/21/2020 12/22/2020 documented as of this encounter (statuses as of 06/05/2022) [address]13-2021 History of Past illness Narrative* Problem Noted Date Resolved Date Joint stiffness of right lower leg 10/21/2020 12/22/2020 Right leg weakness 10/21/2020 12/22/2020 documented as of this encounter (statuses as of 06/06/2022) [address]13-2021 History of Past illness Narrative* Problem Noted Date Resolved Date Joint stiffness of right lower leg 10/21/2020 12/22/2020 Right leg weakness 10/21/2020 12/22/2020 documented as of this encounter (statuses as of 06/07/2022) [address]13-2021 History of Past illness Narrative* Problem Noted Date Resolved Date Joint stiffness of right lower leg 10/21/2020 12/22/2020 Right leg weakness 10/21/2020 12/22/2020 documented as of this encounter (statuses as of 06/10/2022) [address]13-2021 History of Past illness Narrative* Problem Noted Date Resolved Date Joint stiffness of right lower leg 10/21/2020 12/22/2020 Right leg weakness 10/21/2020 12/22/2020 documented as of this encounter (statuses as of 07/20/2022) [address]13-2021 History of Past illness Narrative* Problem Noted Date Resolved Date Joint stiffness of right lower leg 10/21/2020 12/22/2020 Right leg weakness 10/21/2020 12/22/2020 documented as of this encounter (statuses as of 08/04/2022) [address]13-2021 History of Past illness Narrative* Problem Noted Date Resolved Date Joint stiffness of right lower leg 10/21/2020 12/22/2020 Right leg weakness 10/21/2020 12/22/2020 documented as of this encounter (statuses as of 08/04/2022) [address]13-2021 History of Past illness Narrative* Problem Noted Date Resolved Date Joint stiffness of right lower leg 10/21/2020 12/22/2020 Right leg weakness 10/21/2020 12/22/2020 documented as of this encounter (statuses as of 08/05/2022) [address]13-2021 History of Past illness Narrative* Problem Noted Date Resolved Date Joint stiffness of right lower leg 10/21/2020 12/22/2020 Right leg weakness 10/21/2020 12/22/2020 documented as of this encounter (statuses as of 08/11/2022) [address]13-2021 History of Past illness Narrative* Problem Noted Date Resolved Date Joint stiffness of right lower leg 10/21/2020 12/22/2020 Right leg weakness 10/21/2020 12/22/2020 documented as of this encounter (statuses as of 08/17/2022) [address]13-2021 History of Past illness Narrative* Problem Noted Date Resolved Date Joint stiffness of right lower leg 10/21/2020 12/22/2020 Right leg weakness 10/21/2020 12/22/2020 documented as of this encounter (statuses as of 10/28/2022) [address]13-2021 History of Past illness Narrative* Problem Noted Date Resolved Date Joint stiffness of right lower leg 10/21/2020 12/22/2020 Right leg weakness 10/21/2020 12/22/2020 documented as of this encounter (statuses as of 12/07/2022) [address]13-2021 History of Past illness Narrative* Problem Noted Date Resolved Date Joint stiffness of right lower leg 10/21/2020 12/22/2020 Right leg weakness 10/21/2020 12/22/2020 documented as of this encounter (statuses as of 12/08/2022) [address]13-2021 History of Past illness Narrative* Problem Noted Date Resolved Date Joint stiffness of right lower leg 10/21/2020 12/22/2020 Right leg weakness 10/21/2020 12/22/2020 documented as of this encounter (statuses as of 01/09/2023) [facility]13-2021 History of Past illness Narrative* Problem Noted Date Resolved Date Joint stiffness of right lower leg 10/21/2020 12/22/2020 Right leg weakness 10/21/2020 12/22/2020 documented as of this encounter (statuses as of 01/28/2023) [address]13-2021 History of Past illness Narrative* Problem Noted Date Resolved Date Joint stiffness of right lower leg 10/21/2020 12/22/2020 Right leg weakness 10/21/2020 12/22/2020 documented as of this encounter (statuses as of 03/15/2023) [address]13-2021 History of Past illness Narrative* Problem Noted Date Resolved Date Joint stiffness of right lower leg 10/21/2020 12/22/2020 Right leg weakness 10/21/2020 12/22/2020 documented as of this encounter (statuses as of 03/15/2023) [address]13-2021 History of Past illness Narrative* Problem Noted Date Resolved Date Joint stiffness of right lower leg 10/21/2020 12/22/2020 Right leg weakness 10/21/2020 12/22/2020 documented as of this encounter (statuses as of 03/28/2023) [address]13-2021 History of Past illness Narrative* Problem Noted Date Resolved Date Joint stiffness of right lower leg 10/21/2020 12/22/2020 Right leg weakness 10/21/2020 12/22/2020 documented as of this encounter (statuses as of 04/10/2023) [address]13-2021 History of Past illness Narrative* Problem Noted Date Resolved Date Joint stiffness of right lower leg 10/21/2020 12/22/2020 Right leg weakness 10/21/2020 12/22/2020 documented as of this encounter (statuses as of 04/14/2023) [address]13-2021 History of Past illness Narrative* Problem Noted Date Resolved Date Joint stiffness of right lower leg 10/21/2020 12/22/2020 Right leg weakness 10/21/2020 12/22/2020 documented as of this encounter (statuses as of 04/14/2023) [address]13-2021 History of Past illness Narrative* Problem Noted Date Diagnosed Date Resolved Date Joint stiffness of right lower leg 10/21/2020 12/22/2020 Right leg weakness 10/21/2020 documented as of this encounter (statuses as of 06/05/2023) [address]13-2021 History of Past illness Narrative* Problem Noted Date Diagnosed Date Resolved Date Joint stiffness of right lower leg 10/21/2020 12/22/2020 Right leg weakness 10/21/2020 documented as of this encounter (statuses as of 06/05/2023) [address]13-2021 History of Past illness Narrative* Problem Noted Date Diagnosed Date Resolved Date Joint stiffness of right lower leg 10/21/2020 12/22/2020 Right leg weakness 10/21/2020 documented as of this encounter (statuses as of 07/18/2023) [address]13-2021 History of Past illness Narrative* Problem Noted Date Diagnosed Date Resolved Date Joint stiffness of right lower leg 10/21/2020 12/22/2020 Right leg weakness 10/21/2020 1 documented as of this encounter (statuses as of 08/11/2023) [facility]01-13-2021 History of Past illness Narrative* Problem Noted Date Diagnosed Date Resolved Date Joint stiffness of right lower leg 10/21/2020 12/22/2020 Right leg weakness 10/21/2020 1 documented as of this encounter (statuses as of 08/24/2023) [address]13-2021 History of Past illness Narrative* Problem Noted Date Diagnosed Date Resolved Date Joint stiffness of right lower leg 10/21/2020 12/22/2020 Right leg weakness 10/21/2020 1 documented as of this encounter (statuses as of 09/07/2023) [facility]13-2021 History of Past illness Narrative* Problem Noted Date Diagnosed Date Resolved Date Joint stiffness of right lower leg 10/21/2020 12/22/2020 Right leg weakness 10/21/2020 1 documented as of this encounter (statuses as of 09/12/2023) [address]13-2021 History of Past illness Narrative* Problem Noted Date Diagnosed Date Resolved Date Joint stiffness of right lower leg 10/21/2020 12/22/2020 Right leg weakness 10/21/2020 1 documented as of this encounter (statuses as of 11/29/2023) [address]13-2021 History of Past illness Narrative* Problem Noted Date Diagnosed Date Resolved Date Joint stiffness of right lower leg 10/21/2020 12/22/2020 Right leg weakness 10/21/2020 documented as of this encounter (statuses as of 12/01/2023) [address]13-2021 History of Past illness Narrative* Problem Noted Date Diagnosed Date Resolved Date Joint stiffness of right lower leg 10/21/2020 12/22/2020 Right leg weakness 10/21/2020 1 documented as of this encounter (statuses as of 12/08/2023) [address]13-2021 History of Past illness Narrative* Problem Noted Date Diagnosed Date Resolved Date Joint stiffness of right lower leg 10/21/2020 12/22/2020 Right leg weakness 10/21/2020 1 documented as of this encounter (statuses as of 12/08/2023) [address]13-2021 History of Past illness Narrative* Problem Noted Date Diagnosed Date Resolved Date Joint stiffness of right lower leg 10/21/2020 12/22/2020 Right leg weakness 10/21/2020 1 documented as of this encounter (statuses as of 12/15/2023) [address]13-2021 History of Past illness Narrative* Problem Noted Date Diagnosed Date Resolved Date Joint stiffness of right lower leg 10/21/2020 12/22/2020 Right leg weakness 10/21/2020 1 documented as of this encounter (statuses as of 12/16/2023) [address]13-2021 History of Past illness Narrative* Problem Noted Date Diagnosed Date Resolved Date Joint stiffness of right lower leg 10/21/2020 12/22/2020 Right leg weakness 10/21/2020 1 documented as of this encounter (statuses as of 01/17/2024) [address]13-2021 History of Past illness Narrative* Problem Noted Date Diagnosed Date Resolved Date Joint stiffness of right lower leg 10/21/2020 12/22/2020 Right leg weakness 10/21/2020 1 documented as of this encounter (statuses as of 01/18/2024) [address]13-2021 History of Past illness Narrative* Problem Noted Date Diagnosed Date Resolved Date Joint stiffness of right lower leg 10/21/2020 12/22/2020 Right leg weakness 10/21/2020 1 documented as of this encounter (statuses as of 01/20/2024) [address]13-2021 History of Past illness Narrative* Problem Noted Date Diagnosed Date Resolved Date Joint stiffness of right lower leg 10/21/2020 12/22/2020 Right leg weakness 10/21/2020 1 documented as of this encounter (statuses as of 01/24/2024) [facility]13-2021 History of Past illness Narrative* Problem Noted Date Diagnosed Date Resolved Date Joint stiffness of right lower leg 10/21/2020 12/22/2020 Right leg weakness 10/21/2020 documented as of this encounter (statuses as of 01/25/2024) [facility]12-2021 History of Present illness Narrative* Tami [...] 20, 2020 10:16 AM documented in [facility] Hospital[facility] summary Author Prince Villanueva [facility] April 15, 2023 12:06pm Note Date/Time April 15, 2023 10:55 am [facility] Medical Records Department [address] [place] [address] Discharge Summary 04/15/23 1055 MR#: [id number] Acct: [id number] Name: BIANCA DELAROSA Rep #:[id number] : 1975 47 From: Prince Blanton PCP: Dr. Humberto Jackson MD Status:ADM KEYANA Location: [place] [address] Providers Date of Admission: 04/14/23 Primary Care [...] % (Auto) 73.5 H, Lymph % (Auto) 19.3,Cooper % (Auto) 5.8, Eos % (Auto) 0.6, [...] % (Auto) 69.4, Lymph % (Auto) 20.5, Cooper % (Auto) 7.8, Eos % (Auto) 1.5, [...] drainage of perirectal abscess Attending Provider: Prince Villauneva Primary Care Provider: Humberto Jackson Discharge Orders/Prescriptions [...] Self Care Charges/Coding Visit Charges Inpatient E&M: 27034 Disch Hosp 04/15/23 1206 <Electronically signed by Prince Villanueva MD> Cosigner Signature (if applicable): CC: Dr. Humberto Jackson MD; Dr. Prince Villanueva MD~ Signed [facility] Work Phone: Discharge summary Author Prince Villanueva [facility] April 15, 2023 11:01am Note Date/Time April 15, 2023 10:[address] [facility] Medical Records Department [address] [place] [address] Instructions for Home/Discharge Instructions 04/15/23 1055 MR#: [id number] Acct: [id number] Name: BIANCA DELAROSA Rep #:[id number] : 1975 47 From: Prince Blanton PCP: [...] CC: Dr. Humberto Jackson MD ~ Signed [facility] Work Phone: Evaluation note* Diagnosis Type 2 diabetes mellitus without complication, without long-term current use of insulin (HCC)- Primary Dyslipidemia Other and unspecified hyperlipidemia Class 2 severe obesity with serious comorbidity and body mass index (BMI) of 39.0 to 39.9 in adult, unspecified obesity type (HCC) documented in this encounter [facility]* Diagnosis Type 2 diabetes mellitus without complication, without long-term current use of insulin (HCC) documented in this encounter [facility] note* Diagnosis Type 2 diabetes mellitus [...] of other medications documented in this encounter [facility] note* Diagnosis Type 2 diabetes mellitus without complication, without long-term current use of insulin (HCC)- Primary Dyslipidemia Other and unspecified hyperlipidemia Class 2 severe obesity with serious comorbidity and body mass index (BMI) of 37.0 to 37.9 in adult, unspecified obesity type (HCC) [facility]* Diagnosis Need for vaccination- Primary Need for prophylactic vaccination and inoculation against unspecified single disease [facility]* Diagnosis Cellulitis of skin- Primary Cellulitis and abscess of unspecified site Abscess Cellulitis and abscess of unspecified site [facility] Diagnosis Abscess of buttock- Primary Cellulitis and abscess of buttock Encounter for immunization Need for other specified prophylactic vaccination against single bacterial disease [facility]* Diagnosis Abscess of buttock- Primary Cellulitis and abscess of buttock Pilonidal cyst Pilonidal cyst without mention of abscess [facility]* Diagnosis Type 2 diabetes mellitus without [...] of other medications [facility] Diagnosis Attention 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 [facility]* Diagnosis Type 2 diabetes mellitus without complication, without long-term current use of insulin ([facility])- Primary Dyslipidemia Other and unspecified hyperlipidemia Multiple thyroid nodules Nontoxic multinodular goiter Obesity, Class II, BMI 35-39.9 Obesity, unspecified [facility]* Diagnosis Type 2 diabetes mellitus without complication, without long-term current use of insulin (HCC) [facility] Diagnosis Type 2 diabetes mellitus without complication, without long-term current use of insulin (HCC) [facility] Diagnosis Attention 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 [facility]* Diagnosis Migraine without aura and without [...] Generalized anxiety disorder [facility]* Diagnosis Onset Date Resolution Status Perirectal abscess acute [facility] Work Phone: Evaluation note* Diagnosis Abscess of buttock- Primary Cellulitis and abscess of buttock [facility]* Diagnosis Type 2 diabetes mellitus without complication, without long-term current use of insulin (HCC) [facility]* Diagnosis Attention 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 [facility]* Diagnosis Screening for colon cancer- Primary Special screening for malignant neoplasms, colon Family history of colon cancer in father [facility]* Diagnosis Type 2 diabetes mellitus without complication, without long-term current use of insulin (HCC) documented in this encounter [facility]* Diagnosis Right foot pain Pain in soft tissues of limb documented in this encounter [facility] Work Phone: Evaluation note* Diagnosis Type 2 diabetes mellitus without complication, without long-term current use of insulin (HCC) [facility]* Diagnosis Well adult exam- Primary Routine [...] single bacterial disease [facility]* Diagnosis Attention 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- Primary [facility]* Diagnosis Type 2 diabetes mellitus without complication, without long-term current use of insulin (HCC)- Primary Dyslipidemia Other and unspecified hyperlipidemia Multiple thyroid nodules Nontoxic multinodular goiter Obesity, Class II, BMI 35-39.9 Obesity, unspecified [facility]* Diagnosis Type 2 diabetes mellitus without complication, without long-term current use of insulin ([facility]) [facility] Diagnosis Multiple thyroid nodules- Primary Nontoxic multinodular goiter [facility]* Diagnosis Attention 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 [facility]* Diagnosis Thyroid nodule- Primary Nontoxic uninodular goiter [facility] Diagnosis Non-toxic nodular goiter- Primary Unspecified nontoxic nodular goiter Multiple thyroid nodules Nontoxic multinodular goiter [facility] Diagnosis Attention 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 [facility]* Diagnosis Attention 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 [facility]* Diagnosis Acute pain of right shoulder- Primary Type 2 diabetes mellitus without complication, without long-term current use of insulin (HCC) Dyslipidemia Other and unspecified hyperlipidemia Multiple thyroid nodules Nontoxic multinodular goiter Medication management Encounter for long-term (current) use of other medications [facility]* Diagnosis Migraine without aura and without [...] esophagitis Esophageal reflux [facility]* Diagnosis Migraine without aura and without [...] of right shoulder [facility] Diagnosis Migraine without aura and without [...] of right shoulder [facility] Diagnosis Migraine without aura and without [...] (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 [facility] Diagnosis Migraine without aura and without [...] right shoulder- Primary [facility]* Diagnosis Migraine without aura and without [...] anxiety disorder Cough [facility]* Diagnosis Pain in both knees, unspecified [...] Generalized anxiety disorder [facility]* Diagnosis Migraine without aura and without [...] right shoulder- Primary [facility] Diagnosis Migraine without aura and without [...] right shoulder- Primary [facility]* Diagnosis Migraine without aura and without [...] (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 documented in this encounter [facility]* Diagnosis Migraine without aura and without [...] of other medications documented in this encounter [facility] note* Diagnosis Migraine without aura and [...] right shoulder- Primary documented in this encounter [facility] note* Diagnosis Migraine without aura and [...] and unspecified hyperlipidemia documented in this encounter [facility] note* Diagnosis Migraine without aura and [...] serum enzyme levels documented in this encounter [facility] note* Diagnosis Migraine without aura and [...] serum enzyme levels documented in this encounter [facility] note* Diagnosis Migraine without aura and [...] of insulin (HCC) documented in this encounter [facility] note* Diagnosis Migraine without aura and [...] (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 documented in this encounter [facility] note* Diagnosis Migraine without aura and [...] right breast- Primary documented in this encounter [facility]* Diagnosis Migraine without aura and without [...] of other medications documented in this encounter [facility] note* Diagnosis Migraine without aura and [...] of right breast [facility]* Diagnosis Migraine without aura and without [...] of right breast [facility]* Diagnosis Migraine without aura and without [...] Hypertrophy of breast [facility] Diagnosis Migraine without aura and [...] without hyperactivity- Primary [facility] Diagnosis Migraine without aura and [...] Unspecified endocrine disorder [facility] Diagnosis Migraine without aura and [...] skull and head [facility] Diagnosis Migraine without aura and [...] craniopharyngeal duct (pouch) [facility] Diagnosis Migraine without aura and [...] complication, without long-term current use of insulin ([facility]) Diabetic eye exam ([facility]) Type II or unspecified type diabetes [...] disorder with single episode, in partial remission ([facility]) Mood disorder ([facility]) Unspecified episodic mood disorder Obesity, Class [...] Abnormal chest sounds [facility] Diagnosis Migraine without aura and without status migrainosus, not intractable Migraine without aura, without mention of intractable migraine without mention of status migrainosus Obstructive sleep apnea syndrome Obstructive sleep apnea (adult) (pediatric) Mild intermittent extrinsic asthma without complication GERD without esophagitis Esophageal reflux Type 2 diabetes mellitus without complication, without long-term current use of insulin ([facility]) Dyslipidemia Other and unspecified hyperlipidemia ISABELLA (generalized anxiety disorder) Generalized anxiety disorder Abnormal lung sounds Abnormal chest sounds [facility] Diagnosis Migraine without aura and without [...] of right shoulder [facility] Diagnosis Migraine without aura and without [...] skull and head documented in this encounter [facility] note* Diagnosis Migraine without aura and [...] of insulin (HCC) [facility] Diagnosis Migraine without aura and without [...] (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 documented in this encounter [facility] Diagnosis Migraine without aura and without [...] apnea (adult) (pediatric) documented in this encounter [facility] note* Diagnosis Migraine without aura and [...] Dysphagia, pharyngoesophageal phase documented in this encounter [facility] note* Diagnosis Migraine without aura and [...] Dysphagia, pharyngoesophageal phase documented in this encounter [facility] note* Diagnosis Migraine without aura and [...] Dysphagia, pharyngoesophageal phase documented in this encounter [facility] note* Diagnosis Migraine without aura and [...] Dysphagia, pharyngoesophageal phase documented in this encounter [facility] note* Diagnosis Migraine without aura and [...] Dysphagia, pharyngoesophageal phase documented in this encounter [facility] note* Diagnosis Migraine without aura and [...] Dysphagia, pharyngoesophageal phase documented in this encounter [facility] note* Diagnosis Migraine without aura and [...] Dysphagia, pharyngoesophageal phase documented in this encounter [facility] note* Diagnosis Migraine without aura and [...] Dysphagia, pharyngoesophageal phase documented in this encounter [facility] note* Diagnosis Migraine without aura and [...] Dysphagia, pharyngoesophageal phase [facility] Author Prince Villanueva [facility] April 14, 2023 5:05pm Note Date/Time April 14, 2023 4:55p m [facility] Medical Records Department [address] [place] [address] History & Physical Exam 04/14/23 1651 MR#: [id number] Acct: [id number] Name: BIANCA DELAROSA Rep #:[id number] : 1975 47 From: Prince Bl[place] PCP: Dr. Humberto Jackson MD Status:[facility] Location: [facility] A2 HPI - General General Date of Service: 04/14/23 HPI Narrative BIANCA DELAROSA, is a 47 M who presents to [facility] ER under direction from his PCP [...] last year and was without remarkable findings. [facility] Medical History (Updated 04/14/23 @ 17:03 [...] % (Auto) 73.5 H, Lymph % (Auto) 19.3,Cooper % (Auto) 5.8, Eos % (Auto) 0.6, [...] and drainage. Charges/Coding Visit Charges Inpatient E&M: 85714 Init Hosp L2 04/14/23 1705 <Electronically signed by Prince Villanueva MD> Cosigner Signature (if applicable): CC: Dr. Humberto Jackson MD; Dr. Prince Villanueva MD~ Signed [facility] Work Phone: Reason for referral (narrative)* Outpatient Procedure (Routine) - Closed Specialty Diagnoses / Procedures Referred By Carlos cortes Referred To Contact [facility] Diagnoses Family history of colon cancer in father Procedures COLONOSCOPY SCREENING COLONOSCOPY FLX DX W/COLLJ SPEC WHEN PFRMD Johanna Bliss MD [address] [facility] [place] [address] [facility] [place] [address] [place] [address] Referral ID Status Reason Start Date Expiration Date V isits Requested Visits Authorized [id number] Closed Auto-Generate d Referral 07/22/2022 07/22/2023 1 1 [facility] for referral (narrative)* Diagnostic Procedure Only (Routine) - Closed Specialty Diagnoses / Procedures Referred By Carlos cortes Referred To Contact XR IMAGING Diagnoses Acute pain of right shoulder Procedures XR SHOULDER GENERAL 3V OR MORE AP/TRUE AP/OTHER RIGHT RADEX SHOULDER COMPLETE MINIMUM 2 VIEWS Dominik Kelley, GHULAM.MECHANICAL MANUFACTURING TECHNICIAN [address] [place] [address] [place] [address] Referral ID Status Reason Start Date Expiration Date V isits Requested Visits Authorized [id number] Closed Auto-Generate d Referral 05/21/2024 06/20/2025 1 1 [facility] for referral (narrative)* Diagnostic Procedure Only (Routine) - Closed Specialty Diagnoses / Procedures Referred By Contac t Referred To Contact US IM[facility] Diagnoses Elevated alkaline phosphatase level Procedures US ABD RIGHT UPPER QUADRANT US ABDOMINAL REAL TIME W/IMAGE LIMITED Humberto Jackson MD [address] [place] [address] Us Imaging [id number] Referral ID Status Reason Start Date Expiration Date V isits Requested Visits Authorized [id number] Closed Auto-Generate d Referral 10/17/2024 11/16/2025 1 1 [facility] for visit Narrative* Outpatient Procedure (Routine) - Closed Specialty Diagnoses / Procedures Referred By Contac t Referred To Contact [facility] Diagnoses Family history of colon cancer in father Procedures COLONOSCOPY SCREENING COLONOSCOPY FLX DX W/COLLJ SPEC WHEN PFRMD Johanna Bliss MD [address] [place] [address] [facility] [place] [address] [place] [address] Referral ID Status Reason Start Date Expiration Date V isits Requested Visits Authorized [id number] Closed Auto-Generate d Referral 07/22/2022 07/22/2023 1 1 [facility] for visit Narrative* Diagnostic Procedure Only (Routine) - Closed Specialty Diagnoses / Procedures Referred By Contac t Referred To Contact US IM[facility] Diagnoses Multiple thyroid nodules Procedures US THYROID/PARATHYROID US SOFT TISSUE HEAD & NECK REAL TIME IMGE Torres Todd APRN.MECHANICAL MANUFACTURING TECHNICIAN [address] [address] [place] [address] Referral ID Status Reason Start Date Expiration Date V isits Requested Visits Authorized [id number] Closed Auto-Generate d Referral 07/07/2023 08/05/2024 1 1 [facility] for visit Narrative* Diagnostic Procedure Only (Routine) - Closed Specialty Diagnoses / Procedures Referred By Contac t Referred To Contact XR IMAGING Diagnoses Acute pain of right shoulder Procedures XR SHOULDER GENERAL 3V OR MORE AP/TRUE AP/OTHER RIGHT RADEX SHOULDER COMPLETE MINIMUM 2 VIEWS Dominik Kelley, WEIGH BOX TENDER.MECHANICAL MANUFACTURING TECHNICIAN [address] [place] [address] [place] [address] Referral ID Status Reason Start Date Expiration Date V isits Requested Visits Authorized [id number] Closed Auto-Generate d Referral 05/21/2024 06/20/2025 1 1 [facility] for visit Narrative* Diagnostic Procedure Only (Routine) - Closed Specialty Diagnoses / Procedures Referred By Contac t Referred To Contact [facility] Diagnoses Subareolar mass of right breast Procedures FIGUEROA DIAGNOSTIC BILATERAL DIAGNOSTIC MAMMOGRAPHY COMPUTER-[place] [address] [place] [address] Phone: tel: fax: [facility] [address] [facility] [place] [place] [address] Referral ID Status Reason Start Date Expiration Date V isits Requested Visits Authorized [id number] Closed Auto-Generate d Referral 11/22/2024 12/22/2025 1 1 [facility] for visit Narrative* MRI/CT (Routine) - Closed Specialty Diagnoses / Procedures Referred By Contac t Referred To Contact MR IMAGING Diagnoses Acute pain of right shoulder Procedures MRI SHOULDER WO IVCON RIGHT MRI ANY JT UPPER EXTREMITY W/O CONTRAST MATRL Humberto Jackson MD [address] [place] [address] Phone: tel: fax: [place] [address] Referral ID Status Reason Start Date Expiration Date V isits Requested Visits Authorized [id number] Closed Auto-Generate d Referral 12/20/2024 01/19/2026 1 1 [facility] Summary Purpose Family History No Family History Records Found Relationship Condition Age at Onset Recorded Date/T ariadna father Malignant neoplasm of colon Unknown Cardiac disease Unknown Myocardial infarction Unknown Advance Directives No Advanced Directives Records FoundDocuments on File Type Date Recorded 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 Advance Directive(s) 01/20/2021 6:28 PM Advance Directive(s) 02/01/2020 3:50 PM Advance Directive(s) 10/20/2018 4:37 PM Advance Directive(s) 07/14/2018 4:43 PM Advance Directive(s) 09/08/2017 9:38 AM Advance Directive(s) 08/16/2017 10:21 AM Documents on File Type Date Recorded 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 Advance Directive(s) 01/20/2021 6:28 PM Advance Directive(s) 02/01/2020 3:50 PM Advance Directive(s) 10/20/2018 4:37 PM Advance Directive(s) 07/14/2018 4:43 PM Advance Directive(s) 09/08/2017 9:38 AM Advance Directive(s) 08/16/2017 10:21 AM Advance Directive Response Recorded Date/ Time Living Will No April 14, 2023 2 :47pm Power of Private Pilot No April 14, 2023 2:47pm Advance Directive Response Recorded Date/ Time Living Will No April 14, 2023 9 :00pm Power of Private Pilot No April 14, 2023 9:00pm Reason for Referral Specialty Diagnoses / Procedures Referred By Contphilip t Referred To Contact Podiatry Diagnoses Type 2 diabetes mellitus without complication, without long-term current use of insulin (HCC) Procedures CONSULT TO PODIATRY OFFICE/OUTPATIENT [facility] 60-74 MINUTES Torres Monaco, WEIGH BOX TENDER.MECHANICAL MANUFACTURING TECHNICIAN [address] [address] Referral ID Status Reason Start Date Expiration Date Visits Requested Visits Authorized [id number] Authorized PCP Requested Referral 03/04/2022 03/04/2023 1 1 Specialty Diagnoses / Procedures Referred By Contphilip t Referred To Contact Diagnoses Obstructive sleep apnea syndrome Procedures CONSULT TO SLEEP MEDICINE - ADULT OFFICE/OUTPATIENT [facility] 60-74 MINUTES Humberot Jackson MD [address] [place] [address] Referral ID Status Reason Start Date Expiration Date Visits Requested Visits Authorized [id number] Authorized PCP Requested Referral 06/04/2022 06/04/2023 1 1 Specialty Diagnoses / Procedures Referred By Contac t Referred To Contact General Surgery Diagnoses Abscess of buttock Pilonidal cyst Procedures CONSULT TO GENERAL SURGERY OFFICE/OUTPATIENT [facility] 60-74 MINUTES Kenyatta Castaneda PA-C [address] [place] [address] Referral ID Status Reason Start Date Expiration Date Visits Requested Visits Authorized [id number] Authorized PCP Requested Referral 08/17/2022 08/17/2023 1 1 Specialty Diagnoses / Procedures Referred By Contac t Referred To Contact Radiology Diagnoses Right foot pain Procedures XR foot right 3+ views Stanton Peters DO [address] [place] [address] Referral ID Status Reason Start Date Expiration Date Visits Requested Visits Authorized [id number] Authorized Perform Procedure 10/27/2023 10/26/2024 1 1 Specialty Diagnoses / Procedures Referred By Contac t Referred To Contact Diagnoses Multiple thyroid nodules Procedures CONSULT TO ENDOCRINE SURGERY OFFICE/OUTPATIENT [facility] 60 MINUTES Torres Monaco, GHULAM.MECHANICAL MANUFACTURING TECHNICIAN [address] [place] [id number] Referral ID Status Reason Start Date Expiration Date Visits Requested Visits Authorized [id number] Authorized PCP Requested Referral 01/24/2024 01/23/2025 1 1 Specialty Diagnoses / Procedures Referred By Contac t Referred To Contact [facility] Diagnoses Acute pain of right shoulder Procedures CONSULT TO PHYSICAL THERAPY PHYSICAL THERAPY EVALUATION HIGH COMPLEX 45 MINS Dominik Kelley APRN.MECHANICAL MANUFACTURING TECHNICIAN [address] [place] [address] [facility] [place] [address] [place] [address] Referral ID Status Reason Start Date Expiration Date Visits Requested Visits Authorized [id number] Authorized Auto-Generat ed Referral 02/07/2024 10/08/2024 20 20 Specialty Diagnoses / Procedures Referred By Carlos t Referred To Contact XR IMAGING Diagnoses Acute pain of right shoulder Procedures XR SHOULDER GENERAL 3V OR MORE AP/TRUE AP/OTHER RIGHT RADEX SHOULDER COMPLETE MINIMUM 2 VIEWS Dominik Kelley APRN.MECHANICAL MANUFACTURING TECHNICIAN [address] [place] [address] [place] [address] Referral ID Status Reason Start Date Expiration Date V isits Requested Visits Authorized [id number] Closed Auto-Generate d Referral 05/21/2024 06/20/2025 1 [...] section and content) DATE CREATED AUTHOR 04/03/2018 [facility] DATE CREATED AUTHOR AUTHOR'S ORGANIZ ATION 10/23/2018 [facility] DATE CREATED AUTHOR AUTHOR'S ORGANIZ ATION 03/05/2020 [facility] DATE CREATED AUTHOR AUTHOR'S ORGANIZ ATION 04/01/2024 [facility] DATE CREATED AUTHOR AUTHOR'S ORGANIZ ATION 04/26/2024 [facility] DATE CREATED AUTHOR AUTHOR'S ORGANIZ ATION 01/14/2025 [facility] DATE CREATED AUTHOR AUTHOR'S ORGANIZ ATION 03/09/2025 [facility] DATE CREATED AUTHOR AUTHOR'S ORGANIZ ATION 03/11/2025 [facility] Source Comments (unrecognize d section and content) In the event this informatio n is protected by the Federal Confidentiality of Alcohol and Drug Abuse Patient Records regulations: The Federal rules restrict any use of the information to criminally investigate or prosecute any alcohol or drug abuse patient.[facility] event this information is protected by the Federal Confidentiality of Alcohol and Drug Abuse Patient Records regulations: The Federal rules restrict any use of the information to criminally investigate or prosecute any alcohol or drug abuse patient.[facility] the event this information is protected by the Federal Confidentiality of Alcohol and Drug Abuse Patient Records regulations: The Federal rules restrict any use of the information to criminally investigate or prosecute any alcohol or drug abuse patient.[facility] the event this information is protected by the Federal Confidentiality of Alcohol and Drug Abuse Patient Records regulations: The Federal rules restrict any use of the information to criminally investigate or prosecute any alcohol or drug abuse patient.[facility] the event this information is protected by the Federal Confidentiality of Alcohol and Drug Abuse Patient Records regulations: The Federal rules restrict any use of the information to criminally investigate or prosecute any alcohol or drug abuse patient.[facility] the event this information is protected by the Federal Confidentiality of Alcohol and Drug Abuse Patient Records regulations: The Federal rules restrict any use of the information to criminally investigate or prosecute any alcohol or drug abuse patient.[facility] the event this information is protected by the Federal Confidentiality of Alcohol and Drug Abuse Patient Records regulations: The Federal rules restrict any use of the information to criminally investigate or prosecute any alcohol or drug abuse patient.[facility] the event this information is protected by the Federal Confidentiality of Alcohol and Drug Abuse Patient Records regulations: The Federal rules restrict any use of the information to criminally investigate or prosecute any alcohol or drug abuse patient.[facility] the event this information is protected by the Federal Confidentiality of Alcohol and Drug Abuse Patient Records regulations: The Federal rules restrict any use of the information to criminally investigate or prosecute any alcohol or drug abuse patient.[facility] the event this information is protected by the Federal Confidentiality of Alcohol and Drug Abuse Patient Records regulations: The Federal rules restrict any use of the information to criminally investigate or prosecute any alcohol or drug abuse patient.[facility] the event this information is protected by the Federal Confidentiality of Alcohol and Drug Abuse Patient Records regulations: The Federal rules restrict any use of the information to criminally investigate or prosecute any alcohol or drug abuse patient.[facility]In the event this information is protected by the Federal Confidentiality of Alcohol and Drug Abuse Patient Records regulations: The Federal rules restrict any use of the information to criminally investigate or prosecute any alcohol or drug abuse patient.[facility]In the event this information is protected by the Federal Confidentiality of Alcohol and Drug Abuse Patient Records regulations: The Federal rules restrict any use of the information to criminally investigate or prosecute any alcohol or drug abuse patient.[facility]In the event this information is protected by the Federal Confidentiality of Alcohol and Drug Abuse Patient Records regulations: The Federal rules restrict any use of the information to criminally investigate or prosecute any alcohol or drug abuse patient.[facility]In the event this information is protected by the Federal Confidentiality of Alcohol and Drug Abuse Patient Records regulations: The Federal rules restrict any use of the information to criminally investigate or prosecute any alcohol or drug abuse patient.[facility] HospitalIn the event this information is protected by the Federal Confidentiality of Alcohol and Drug Abuse Patient Records regulations: The Federal rules restrict any use of the information to criminally investigate or prosecute any alcohol or drug abuse patient.[facility]In the event this information is protected by the Federal Confidentiality of Alcohol and Drug Abuse Patient Records regulations: The Federal rules restrict any use of the information to criminally investigate or prosecute any alcohol or drug abuse patient.[facility]In the event this information is protected by the Federal Confidentiality of Alcohol and Drug Abuse Patient Records regulations: The Federal rules restrict any use of the information to criminally investigate or prosecute any alcohol or drug abuse patient.[facility] HospitalIn the event this information is protected by the Federal Confidentiality of Alcohol and Drug Abuse Patient Records regulations: The Federal rules restrict any use of the information to criminally investigate or prosecute any alcohol or drug abuse patient.[facility] HospitalIn the event this information is protected by the Federal Confidentiality of Alcohol and Drug Abuse Patient Records regulations: The Federal rules restrict any use of the information to criminally investigate or prosecute any alcohol or drug abuse patient.[facility] HospitalIn the event this information is protected by the Federal Confidentiality of Alcohol and Drug Abuse Patient Records regulations: The Federal rules restrict any use of the information to criminally investigate or prosecute any alcohol or drug abuse patient.[facility] HospitalIn the event this information is protected by the Federal Confidentiality of Alcohol and Drug Abuse Patient Records regulations: The Federal rules restrict any use of the information to criminally investigate or prosecute any alcohol or drug abuse patient.[facility] HospitalIn the event this information is protected by the Federal Confidentiality of Alcohol and Drug Abuse Patient Records regulations: The Federal rules restrict any use of the information to criminally investigate or prosecute any alcohol or drug abuse patient.[facility] HospitalIn the event this information is protected by the Federal Confidentiality of Alcohol and Drug Abuse Patient Records regulations: The Federal rules restrict any use of the information to criminally investigate or prosecute any alcohol or drug abuse patient.[facility] HospitalIn the event this information is protected by the Federal Confidentiality of Alcohol and Drug Abuse Patient Records regulations: The Federal rules restrict any use of the information to criminally investigate or prosecute any alcohol or drug abuse patient.[facility] HospitalIn the event this information is protected by the Federal Confidentiality of Alcohol and Drug Abuse Patient Records regulations: The Federal rules restrict any use of the information to criminally investigate or prosecute any alcohol or drug abuse patient.[facility] HospitalIn the event this information is protected by the Federal Confidentiality of Alcohol and Drug Abuse Patient Records regulations: The Federal rules restrict any use of the information to criminally investigate or prosecute any alcohol or drug abuse patient.[facility] HospitalIn the event this information is protected by the Federal Confidentiality of Alcohol and Drug Abuse Patient Records regulations: The Federal rules restrict any use of the information to criminally investigate or prosecute any alcohol or drug abuse patient.[facility] HospitalIn the event this information is protected by the Federal Confidentiality of Alcohol and Drug Abuse Patient Records regulations: The Federal rules restrict any use of the information to criminally investigate or prosecute any alcohol or drug abuse patient.[facility] HospitalIn the event this information is protected by the Federal Confidentiality of Alcohol and Drug Abuse Patient Records regulations: The Federal rules restrict any use of the information to criminally investigate or prosecute any alcohol or drug abuse patient.[facility] HospitalIn the event this information is protected by the Federal Confidentiality of Alcohol and Drug Abuse Patient Records regulations: The Federal rules restrict any use of the information to criminally investigate or prosecute any alcohol or drug abuse patient.[facility] HospitalIn the event this information is protected by the Federal Confidentiality of Alcohol and Drug Abuse Patient Records regulations: The Federal rules restrict any use of the information to criminally investigate or prosecute any alcohol or drug abuse patient.[facility] HospitalIn the event this information is protected by the Federal Confidentiality of Alcohol and Drug Abuse Patient Records regulations: The Federal rules restrict any use of the information to criminally investigate or prosecute any alcohol or drug abuse patient.[facility] HospitalIn the event this information is protected by the Federal Confidentiality of Alcohol and Drug Abuse Patient Records regulations: The Federal rules restrict any use of the information to criminally investigate or prosecute any alcohol or drug abuse patient.[facility] HospitalIn the event this information is protected by the Federal Confidentiality of Alcohol and Drug Abuse Patient Records regulations: The Federal rules restrict any use of the information to criminally investigate or prosecute any alcohol or drug abuse patient.[facility] HospitalIn the event this information is protected by the Federal Confidentiality of Alcohol and Drug Abuse Patient Records regulations: The Federal rules restrict any use of the information to criminally investigate or prosecute any alcohol or drug abuse patient.[facility] HospitalIn the event this information is protected by the Federal Confidentiality of Alcohol and Drug Abuse Patient Records regulations: The Federal rules restrict any use of the information to criminally investigate or prosecute any alcohol or drug abuse patient.[facility] HospitalIn the event this information is protected by the Federal Confidentiality of Alcohol and Drug Abuse Patient Records regulations: The Federal rules restrict any use of the information to criminally investigate or prosecute any alcohol or drug abuse patient.[facility] HospitalIn the event this information is protected by the Federal Confidentiality of Alcohol and Drug Abuse Patient Records regulations: The Federal rules restrict any use of the information to criminally investigate or prosecute any alcohol or drug abuse patient.[facility] HospitalIn the event this information is protected by the Federal Confidentiality of Alcohol and Drug Abuse Patient Records regulations: The Federal rules restrict any use of the information to criminally investigate or prosecute any alcohol or drug abuse patient.[facility] HospitalIn the event this information is protected by the Federal Confidentiality of Alcohol and Drug Abuse Patient Records regulations: The Federal rules restrict any use of the information to criminally investigate or prosecute any alcohol or drug abuse patient.[facility] HospitalIn the event this information is protected by the Federal Confidentiality of Alcohol and Drug Abuse Patient Records regulations: The Federal rules restrict any use of the information to criminally investigate or prosecute any alcohol or drug abuse patient.[facility] HospitalIn the event this information is protected by the Federal Confidentiality of Alcohol and Drug Abuse Patient Records regulations: The Federal rules restrict any use of the information to criminally investigate or prosecute any alcohol or drug abuse patient.[facility] HospitalIn the event this information is protected by the Federal Confidentiality of Alcohol and Drug Abuse Patient Records regulations: The Federal rules restrict any use of the information to criminally investigate or prosecute any alcohol or drug abuse patient.[facility] HospitalIn the event this information is protected by the Federal Confidentiality of Alcohol and Drug Abuse Patient Records regulations: The Federal rules restrict any use of the information to criminally investigate or prosecute any alcohol or drug abuse patient.[facility] HospitalIn the event this information is protected by the Federal Confidentiality of Alcohol and Drug Abuse Patient Records regulations: The Federal rules restrict any use of the information to criminally investigate or prosecute any alcohol or drug abuse patient.[facility] HospitalIn the event this information is protected by the Federal Confidentiality of Alcohol and Drug Abuse Patient Records regulations: The Federal rules restrict any use of the information to criminally investigate or prosecute any alcohol or drug abuse patient.[facility] HospitalIn the event this information is protected by the Federal Confidentiality of Alcohol and Drug Abuse Patient Records regulations: The Federal rules restrict any use of the information to criminally investigate or prosecute any alcohol or drug abuse patient.[facility] HospitalIn the event this information is protected by the Federal Confidentiality of Alcohol and Drug Abuse Patient Records regulations: The Federal rules restrict any use of the information to criminally investigate or prosecute any alcohol or drug abuse patient.[facility] HospitalIn the event this information is protected by the Federal Confidentiality of Alcohol and Drug Abuse Patient Records regulations: The Federal rules restrict any use of the information to criminally investigate or prosecute any alcohol or drug abuse patient.[facility] HospitalIn the event this information is protected by the Federal Confidentiality of Alcohol and Drug Abuse Patient Records regulations: The Federal rules restrict any use of the information to criminally investigate or prosecute any alcohol or drug abuse patient.[facility] HospitalIn the event this information is protected by the Federal Confidentiality of Alcohol and Drug Abuse Patient Records regulations: The Federal rules restrict any use of the information to criminally investigate or prosecute any alcohol or drug abuse patient.[facility] HospitalIn the event this information is protected by the Federal Confidentiality of Alcohol and Drug Abuse Patient Records regulations: The Federal rules restrict any use of the information to criminally investigate or prosecute any alcohol or drug abuse patient.[facility] HospitalIn the event this information is protected by the Federal Confidentiality of Alcohol and Drug Abuse Patient Records regulations: The Federal rules restrict any use of the information to criminally investigate or prosecute any alcohol or drug abuse patient.[facility] HospitalIn the event this information is protected by the Federal Confidentiality of Alcohol and Drug Abuse Patient Records regulations: The Federal rules restrict any use of the information to criminally investigate or prosecute any alcohol or drug abuse patient.[facility] HospitalIn the event this information is protected by the Federal Confidentiality of Alcohol and Drug Abuse Patient Records regulations: The Federal rules restrict any use of the information to criminally investigate or prosecute any alcohol or drug abuse patient.[facility] HospitalIn the event this information is protected by the Federal Confidentiality of Alcohol and Drug Abuse Patient Records regulations: The Federal rules restrict any use of the information to criminally investigate or prosecute any alcohol or drug abuse patient.[facility] HospitalIn the event this information is protected by the Federal Confidentiality of Alcohol and Drug Abuse Patient Records regulations: The Federal rules restrict any use of the information to criminally investigate or prosecute any alcohol or drug abuse patient.[facility] HospitalIn the event this information is protected by the Federal Confidentiality of Alcohol and Drug Abuse Patient Records regulations: The Federal rules restrict any use of the information to criminally investigate or prosecute any alcohol or drug abuse patient.[facility] HospitalIn the event this information is protected by the Federal Confidentiality of Alcohol and Drug Abuse Patient Records regulations: The Federal rules restrict any use of the information to criminally investigate or prosecute any alcohol or drug abuse patient.[facility] HospitalIn the event this information is protected by the Federal Confidentiality of Alcohol and Drug Abuse Patient Records regulations: The Federal rules restrict any use of the information to criminally investigate or prosecute any alcohol or drug abuse patient.[facility] HospitalIn the event this information is protected by the Federal Confidentiality of Alcohol and Drug Abuse Patient Records regulations: The Federal rules restrict any use of the information to criminally investigate or prosecute any alcohol or drug abuse patient.[facility] HospitalIn the event this information is protected by the Federal Confidentiality of Alcohol and Drug Abuse Patient Records regulations: The Federal rules restrict any use of the information to criminally investigate or prosecute any alcohol or drug abuse patient.[facility] HospitalIn the event this information is protected by the Federal Confidentiality of Alcohol and Drug Abuse Patient Records regulations: The Federal rules restrict any use of the information to criminally investigate or prosecute any alcohol or drug abuse patient.[facility] HospitalIn the event this information is protected by the Federal Confidentiality of Alcohol and Drug Abuse Patient Records regulations: The Federal rules restrict any use of the information to criminally investigate or prosecute any alcohol or drug abuse patient.[facility] HospitalIn the event this information is protected by the Federal Confidentiality of Alcohol and Drug Abuse Patient Records regulations: The Federal rules restrict any use of the information to criminally investigate or prosecute any alcohol or drug abuse patient.[facility] HospitalIn the event this information is protected by the Federal Confidentiality of Alcohol and Drug Abuse Patient Records regulations: The Federal rules restrict any use of the information to criminally investigate or prosecute any alcohol or drug abuse patient.[facility] HospitalIn the event this information is protected by the Federal Confidentiality of Alcohol and Drug Abuse Patient Records regulations: The Federal rules restrict any use of the information to criminally investigate or prosecute any alcohol or drug abuse patient.[facility] HospitalIn the event this information is protected by the Federal Confidentiality of Alcohol and Drug Abuse Patient Records regulations: The Federal rules restrict any use of the information to criminally investigate or prosecute any alcohol or drug abuse patient.[facility] HospitalIn the event this information is protected by the Federal Confidentiality of Alcohol and Drug Abuse Patient Records regulations: The Federal rules restrict any use of the information to criminally investigate or prosecute any alcohol or drug abuse patient.[facility] HospitalIn the event this information is protected by the Federal Confidentiality of Alcohol and Drug Abuse Patient Records regulations: The Federal rules restrict any use of the information to criminally investigate or prosecute any alcohol or drug abuse patient.[facility] HospitalIn the event this information is protected by the Federal Confidentiality of Alcohol and Drug Abuse Patient Records regulations: The Federal rules restrict any use of the information to criminally investigate or prosecute any alcohol or drug abuse patient.[facility] HospitalIn the event this information is protected by the Federal Confidentiality of Alcohol and Drug Abuse Patient Records regulations: The Federal rules restrict any use of the information to criminally investigate or prosecute any alcohol or drug abuse patient.[facility] HospitalIn the event this information is protected by the Federal Confidentiality of Alcohol and Drug Abuse Patient Records regulations: The Federal rules restrict any use of the information to criminally investigate or prosecute any alcohol or drug abuse patient.[facility] HospitalIn the event this information is protected by the Federal Confidentiality of Alcohol and Drug Abuse Patient Records regulations: The Federal rules restrict any use of the information to criminally investigate or prosecute any alcohol or drug abuse patient.[facility] HospitalIn the event this information is protected by the Federal Confidentiality of Alcohol and Drug Abuse Patient Records regulations: The Federal rules restrict any use of the information to criminally investigate or prosecute any alcohol or drug abuse patient.[facility] HospitalIn the event this information is protected by the Federal Confidentiality of Alcohol and Drug Abuse Patient Records regulations: The Federal rules restrict any use of the information to criminally investigate or prosecute any alcohol or drug abuse patient.[facility] HospitalIn the event this information is protected by the Federal Confidentiality of Alcohol and Drug Abuse Patient Records regulations: The Federal rules restrict any use of the information to criminally investigate or prosecute any alcohol or drug abuse patient.[facility] HospitalIn the event this information is protected by the Federal Confidentiality of Alcohol and Drug Abuse Patient Records regulations: The Federal rules restrict any use of the information to criminally investigate or prosecute any alcohol or drug abuse patient.[facility] HospitalIn the event this information is protected by the Federal Confidentiality of Alcohol and Drug Abuse Patient Records regulations: The Federal rules restrict any use of the information to criminally investigate or prosecute any alcohol or drug abuse patient.[facility] HospitalIn the event this information is protected by the Federal Confidentiality of Alcohol and Drug Abuse Patient Records regulations: The Federal rules restrict any use of the information to criminally investigate or prosecute any alcohol or drug abuse patient.[facility] HospitalIn the event this information is protected by the Federal Confidentiality of Alcohol and Drug Abuse Patient Records regulations: The Federal rules restrict any use of the information to criminally investigate or prosecute any alcohol or drug abuse patient.[facility] HospitalIn the event this information is protected by the Federal Confidentiality of Alcohol and Drug Abuse Patient Records regulations: The Federal rules restrict any use of the information to criminally investigate or prosecute any alcohol or drug abuse patient.[facility] HospitalIn the event this information is protected by the Federal Confidentiality of Alcohol and Drug Abuse Patient Records regulations: The Federal rules restrict any use of the information to criminally investigate or prosecute any alcohol or drug abuse patient.[facility] HospitalIn the event this information is protected by the Federal Confidentiality of Alcohol and Drug Abuse Patient Records regulations: The Federal rules restrict any use of the information to criminally investigate or prosecute any alcohol or drug abuse patient.[facility] HospitalIn the event this information is protected by the Federal Confidentiality of Alcohol and Drug Abuse Patient Records regulations: The Federal rules restrict any use of the information to criminally investigate or prosecute any alcohol or drug abuse patient.[facility] HospitalIn the event this information is protected by the Federal Confidentiality of Alcohol and Drug Abuse Patient Records regulations: The Federal rules restrict any use of the information to criminally investigate or prosecute any alcohol or drug abuse patient.[facility] HospitalIn the event this information is protected by the Federal Confidentiality of Alcohol and Drug Abuse Patient Records regulations: The Federal rules restrict any use of the information to criminally investigate or prosecute any alcohol or drug abuse patient.[facility] HospitalIn the event this information is protected by the Federal Confidentiality of Alcohol and Drug Abuse Patient Records regulations: The Federal rules restrict any use of the information to criminally investigate or prosecute any alcohol or drug abuse patient.[facility] HospitalIn the event this information is protected by the Federal Confidentiality of Alcohol and Drug Abuse Patient Records regulations: The Federal rules restrict any use of the information to criminally investigate or prosecute any alcohol or drug abuse patient.[facility] HospitalIn the event this information is protected by the Federal Confidentiality of Alcohol and Drug Abuse Patient Records regulations: The Federal rules restrict any use of the information to criminally investigate or prosecute any alcohol or drug abuse patient.[facility] HospitalIn the event this information is protected by the Federal Confidentiality of Alcohol and Drug Abuse Patient Records regulations: The Federal rules restrict any use of the information to criminally investigate or prosecute any alcohol or drug abuse patient.[facility] HospitalIn the event this information is protected by the Federal Confidentiality of Alcohol and Drug Abuse Patient Records regulations: The Federal rules restrict any use of the information to criminally investigate or prosecute any alcohol or drug abuse patient.[facility] HospitalIn the event this information is protected by the Federal Confidentiality of Alcohol and Drug Abuse Patient Records regulations: The Federal rules restrict any use of the information to criminally investigate or prosecute any alcohol or drug abuse patient.[facility] HospitalIn the event this information is protected by the Federal Confidentiality of Alcohol and Drug Abuse Patient Records regulations: The Federal rules restrict any use of the information to criminally investigate or prosecute any alcohol or drug abuse patient.[facility] HospitalIn the event this information is protected by the Federal Confidentiality of Alcohol and Drug Abuse Patient Records regulations: The Federal rules restrict any use of the information to criminally investigate or prosecute any alcohol or drug abuse patient.[facility] HospitalIn the event this information is protected by the Federal Confidentiality of Alcohol and Drug Abuse Patient Records regulations: The Federal rules restrict any use of the information to criminally investigate or prosecute any alcohol or drug abuse patient.[facility] HospitalIn the event this information is protected by the Federal Confidentiality of Alcohol and Drug Abuse Patient Records regulations: The Federal rules restrict any use of the information to criminally investigate or prosecute any alcohol or drug abuse patient.[facility] HospitalIn the event this information is protected by the Federal Confidentiality of Alcohol and Drug Abuse Patient Records regulations: The Federal rules restrict any use of the information to criminally investigate or prosecute any alcohol or drug abuse patient.[facility] HospitalIn the event this information is protected by the Federal Confidentiality of Alcohol and Drug Abuse Patient Records regulations: The Federal rules restrict any use of the information to criminally investigate or prosecute any alcohol or drug abuse patient.[facility] HospitalIn the event this information is protected by the Federal Confidentiality of Alcohol and Drug Abuse Patient Records regulations: The Federal rules restrict any use of the information to criminally investigate or prosecute any alcohol or drug abuse patient.[facility] HospitalIn the event this information is protected by the Federal Confidentiality of Alcohol and Drug Abuse Patient Records regulations: The Federal rules restrict any use of the information to criminally investigate or prosecute any alcohol or drug abuse patient.[facility] HospitalIn the event this information is protected by the Federal Confidentiality of Alcohol and Drug Abuse Patient Records regulations: The Federal rules restrict any use of the information to criminally investigate or prosecute any alcohol or drug abuse patient.[facility] HospitalIn the event this information is protected by the Federal Confidentiality of Alcohol and Drug Abuse Patient Records regulations: The Federal rules restrict any use of the information to criminally investigate or prosecute any alcohol or drug abuse patient.[facility] HospitalIn the event this information is protected by the Federal Confidentiality of Alcohol and Drug Abuse Patient Records regulations: The Federal rules restrict any use of the information to criminally investigate or prosecute any alcohol or drug abuse patient.[facility] HospitalIn the event this information is protected by the Federal Confidentiality of Alcohol and Drug Abuse Patient Records regulations: The Federal rules restrict any use of the information to criminally investigate or prosecute any alcohol or drug abuse patient.[facility] HospitalIn the event this information is protected by the Federal Confidentiality of Alcohol and Drug Abuse Patient Records regulations: The Federal rules restrict any use of the information to criminally investigate or prosecute any alcohol or drug abuse patient.[facility] HospitalIn the event this information is protected by the Federal Confidentiality of Alcohol and Drug Abuse Patient Records regulations: The Federal rules restrict any use of the information to criminally investigate or prosecute any alcohol or drug abuse patient.[facility] HospitalIn the event this information is protected by the Federal Confidentiality of Alcohol and Drug Abuse Patient Records regulations: The Federal rules restrict any use of the information to criminally investigate or prosecute any alcohol or drug abuse patient.[facility] HospitalIn the event this information is protected by the Federal Confidentiality of Alcohol and Drug Abuse Patient Records regulations: The Federal rules restrict any use of the information to criminally investigate or prosecute any alcohol or drug abuse patient.[facility] HospitalIn the event this information is protected by the Federal Confidentiality of Alcohol and Drug Abuse Patient Records regulations: The Federal rules restrict any use of the information to criminally investigate or prosecute any alcohol or drug abuse patient.[facility] HospitalIn the event this information is protected by the Federal Confidentiality of Alcohol and Drug Abuse Patient Records regulations: The Federal rules restrict any use of the information to criminally investigate or prosecute any alcohol or drug abuse patient.[facility] HospitalIn the event this information is protected by the Federal Confidentiality of Alcohol and Drug Abuse Patient Records regulations: The Federal rules restrict any use of the information to criminally investigate or prosecute any alcohol or drug abuse patient.[facility] HospitalIn the event this information is protected by the Federal Confidentiality of Alcohol and Drug Abuse Patient Records regulations: The Federal rules restrict any use of the information to criminally investigate or prosecute any alcohol or drug abuse patient.[facility] HospitalIn the event this information is protected by the Federal Confidentiality of Alcohol and Drug Abuse Patient Records regulations: The Federal rules restrict any use of the information to criminally investigate or prosecute any alcohol or drug abuse patient.[facility] HospitalIn the event this information is protected by the Federal Confidentiality of Alcohol and Drug Abuse Patient Records regulations: The Federal rules restrict any use of the information to criminally investigate or prosecute any alcohol or drug abuse patient.[facility] HospitalIn the event this information is protected by the Federal Confidentiality of Alcohol and Drug Abuse Patient Records regulations: The Federal rules restrict any use of the information to criminally investigate or prosecute any alcohol or drug abuse patient.[facility] Reason for Visit (unrecogniz ed section and content) Reason Comments Physical Therapy Specialty Diagnoses / Procedures Referred By Contac t Referred To Contact [facility] Diagnoses Acute pain of right shoulder Procedures CONSULT TO PHYSICAL THERAPY PHYSICAL THERAPY EVALUATION HIGH COMPLEX 45 MINS Dominik Kelley APRN.MECHANICAL MANUFACTURING TECHNICIAN [address] [place] [address] [facility] [place] [address] [place] [address] Referral ID Status Reason Start Date Expiration Date Visits Requested Visits Authorized [id number] Authorized Auto-Generat ed Referral 02/07/2024 10/08/2024 20 [...] right 3+ views Stanton Peters DO [address] [facility] [place] [address] Referral ID Status Reason Start Date Expiration Date Visits Requested Visits Authorized [id number] Authorized Perform Procedure 10/27/2023 10/26/2024 1 1 Reason Comments PA--FREESTYLE EVERT 3 SENSOR (RENEWAL) Reason Comments Physical Reason Comments Med Change Request Reason Comments Results Appointment Reason Onset Date Comments Refill Request 01/23/2024 Specialty Diagnoses / Procedures Referred By Carlos cortes Referred To Contact Diagnoses Multiple thyroid nodules Procedures CONSULT TO ENDOCRINE SURGERY OFFICE/OUTPATIENT [facility] 60 MINUTES Torres Monaco APRN.MECHANICAL MANUFACTURING TECHNICIAN [address] [address] Referral ID Status Reason Start Date Expiration Date V isits Requested Visits Authorized [id number] Closed PCP Requested Referral 01/24/2024 01/23/2025 1 [...] EVALUATION HIGH COMPLEX 45 MINS Dominik Kelley APRN.MECHANICAL MANUFACTURING TECHNICIAN [address] [place] [address] [facility] [address] [place] [address] Reason Comments Radiology US Specialty Diagnoses / Procedures Referred By Contac t Referred To Contact [facility] Diagnoses Elevated alkaline phosphatase level Procedures US ABD RIGHT UPPER QUADRANT US ABDOMINAL REAL TIME W/IMAGE LIMITED Humberto Jackson MD [address] [place] [address] [place] [address] Referral ID Status Reason Start Date Expiration Date V isits Requested Visits Authorized [id number] Closed Auto-Generate d Referral 10/17/2024 11/16/2025 1 1 Reason Comments Results Reason Onset Date Comments Refill Request 11/18/2024 Reason Comments Pain Right nipple pain Reason Comments Radiology US Specialty Diagnoses / Procedures Referred By Contac t Referred To Contact [facility] Diagnoses Subareolar mass of right breast Procedures US BREAST LTD RIGHT US BREAST UNI REAL TIME WITH IMAGE LIMITED Humberto Jackson MD [address] [place] [address] Phone: tel: fax: [facility] [address] [place] [address] Referral ID Status Reason Start Date Expiration Date V isits Requested Visits Authorized [id number] Closed Auto-Generate d Referral 11/22/2024 12/22/2025 1 1 Reason Comments Radiology MRI Specialty Diagnoses / Procedures Referred By Contac t Referred To Contact [facility] Diagnoses Gynecomastia, male Low testosterone in male Elevated prolactin level Procedures MRI BRAIN WO/W IVCON MRI BRAIN BRAIN STEM W/O W/[place] [address] [place], [place] [id number] Phone: tel: fax: [place] [address] Referral ID Status Reason Start Date Expiration Date V isits Requested Visits Authorized [id number] Closed Auto-Generate d Referral 11/26/2024 12/26/2025 1 [...] HIGH MDM 60 MINUTES [place] Suá[place] [address] [place] [phone] Phone: tel: fax: Referral ID Status Reason Start Date Expiration Date V isits Requested Visits Authorized [id number] Closed PCP Requested Referral 01/10/2025 01/10/2026 1 1 Reason Comments Pituitary Problem Specialty Diagnoses / Procedures Referred By Contac t Referred To Contact Neurosurgery Diagnoses Gynecomastia Elevated prolactin level Pituitary adenoma (HCC) Procedures CONSULT TO NEUROSURGERY OFFICE/OUTPATIENT NEW HIGH MDM 60 MINUTES Humberto Jackson MD [address] [place] [address] Phone: tel: fax: Referral ID Status Reason Start Date Expiration Date V isits Requested Visits Authorized [id number] Closed PCP Requested Referral 12/20/2024 12/20/2025 1 1 Reason Comments Dizziness X 1 week Reason Onset Date Comments Results 03/07/2025 Reason Comments low hgb Low Hgb. SOB easy. E asily fatigued. PCP wants colonoscopy Specialty Diagnoses / Procedures Referred By Carlos t Referred To Contact General Surgery Diagnoses Anemia, unspecified type Procedures CONSULT TO GENERAL SURGERY OFFICE/OUTPATIENT [facility] 60 MINUTES Kenyatta Castaneda PA-C [address] [place] [address] Phone: tel: fax: Referral ID Status Reason Start Date Expiration Date V isits Requested Visits Authorized [id number] Closed PCP Requested Referral 03/07/2025 03/07/2026 1 1 Reason Comments Results, Lab Care Teams (unrecognized sec tion and content) Sweatband Perforator Relationship Specialty Start Date End Date Humberto Jackson MD [address] [place] [address] PCP - General Family Practice 05/06/14 Sweatband Perforator Relationship Specialty Start Date End Date Humberto Jackson MD [address] [place] [address] PCP - General Family Practice 05/06/14 Sweatband Perforator Relationship Specialty Start Date End Date Humberto Jackson MD [address] [place] [address] PCP - General Family Practice 05/06/14 Sweatband Perforator Relationship Specialty Start Date End Date Humberto Jackson MD [address] [place] [address] PCP - General Family Practice 05/06/14 Sweatband Perforator Relationship Specialty Start Date End Date Humberto Jackson MD [address] [place] [address] PCP - General Family Practice 05/06/14 Sweatband Perforator Relationship Specialty Start Date End Date Humberto Jackson MD [address] [place] [address] PCP - General Family Practice 05/06/14 Sweatband Perforator Relationship Specialty Start Date End Date Humberto Jackson MD [address] [place] [address] PCP - General Family Practice 05/06/14 Sweatband Perforator Relationship Specialty Start Date End Date Humberto Jackson MD [facility] [place] [address] PCP - General Family Practice 05/06/14 Sweatband Perforator Relationship Specialty Start Date End Date Humberto Jackson MD [address] [place] [address], [place] [address] PCP - General Family Practice 05/06/14 Sweatband Perforator Relationship Specialty Start Date End Date Humberto Jackson MD [address] [place] [address], [place] [address] PCP - General Family Practice 05/06/14 Sweatband Perforator Relationship Specialty Start Date End Date Humberto Jackson MD [address] [place] [address] [place] [address] PCP - General Family Practice 05/06/14 Sweatband Perforator Relationship Specialty Start Date End Date Humberto Jackson MD [address] [place] [address] [place] [address] PCP - General Family Medicine 05/06/14 Sweatband Perforator Relationship Specialty Start Date End Date Humberto Jackson MD [address] [place] [address] [place] [address] PCP - General Family Medicine 05/06/14 Sweatband Perforator Relationship Specialty Start Date End Date Humberto Jackson MD [address] [place] [address], [place] [address] PCP - General Family Medicine 05/06/14 Sweatband Perforator Relationship Specialty Start Date End Date Humberto Jackson MD [address] [place] [address] [place] [address] PCP - General Family Medicine 05/06/14 Sweatband Perforator Relationship Specialty Start Date End Date Humberto Jackson MD [address] [place] [address] PCP - General Family Medicine 05/06/14 Sweatband Perforator Relationship Specialty Start Date End Date Humberto Jackson MD [address] [place] [address] PCP - General Family Medicine 05/06/14 Sweatband Perforator Relationship Specialty Start Date End Date Humberto Jackson MD [address] [place] [address] PCP - General Family Medicine 05/06/14 Sweatband Perforator Relationship Specialty Start Date End Date Humberto Jackson MD [address] [place] [address] PCP - General Family Medicine 05/06/14 Sweatband Perforator Relationship Specialty Start Date End Date Humberto Jackson MD [address] [place] [address] PCP - General Family Medicine 05/06/14 Sweatband Perforator Relationship Specialty Start Date End Date Humberto Jackson MD [address] [place] [address] PCP - General Family Medicine 05/06/14 Sweatband Perforator Relationship Specialty Start Date End Date Humberto Jackson MD [address] [place] [address] PCP - General Family Medicine 05/06/14 Team [...] MD Admit Provider, Attending Provi tobi Active Sweatband Perforator Relationship Specialty Start Date End Date Humberto Jackson MD [address] [place] [address] PCP - General Family Medicine 05/06/14 Sweatband Perforator Relationship Specialty Start Date End Date Humberto Jackson MD [address] [place] [address] PCP - General Family Medicine 05/06/14 Sweatband Perforator Relationship Specialty Start Date End Date Humberto Jackson MD [address] [place] [address] PCP - General Family Medicine 05/06/14 Sweatband Perforator Relationship Specialty Start Date End Date Humberto Jackson MD [address] [place] [address] PCP - General Family Medicine 05/06/14 Sweatband Perforator Relationship Specialty Start Date End Date Humberto Jackson MD [address] [place] [address] PCP - General Family Medicine 05/06/14 Sweatband Perforator Relationship Specialty Start Date End Date Humberto Jackson MD [address] [place] [address] PCP - General Family Medicine 05/06/14 Sweatband Perforator Relationship Specialty Start Date End Date Humberto Jackson MD [address] [place] [address] PCP - General Family Medicine 05/06/14 Sweatband Perforator Relationship Specialty Start Date End Date Humberto Jackson MD [address] [place] [id number] PCP - General 11/28/11 Sweatband Perforator Relationship Specialty Start Date End Date Humberto Jackson MD [address] [place] [address] PCP - General Family Medicine 05/06/14 Sweatband Perforator Relationship Specialty Start Date End Date Humberto Jackson MD [address] [place] [address] PCP - General Family Medicine 05/06/14 Efren Powell, RN [address] [place] [address] Primary Care Work Over Rig Operator Internal Medicine 09/29/23 10/29/23 Sweatband Perforator Relationship Specialty Start Date End Date Humberto Jackson MD [address] [place] [address] PCP - General Family Medicine 05/06/14 Sweatband Perforator Relationship Specialty Start Date End Date Humberto Jackson MD [address] [place] [address] PCP - General Family Medicine 05/06/14 Sweatband Perforator Relationship Specialty Start Date End Date Humberto Jackson MD [address] [place] [address] PCP - General Family Medicine 05/06/14 Sweatband Perforator Relationship Specialty Start Date End Date Humberto Jackson MD [address] [place] [address] PCP - General Family Medicine 05/06/14 Sweatband Perforator Relationship Specialty Start Date End Date Humberto Jackson MD [address] [place] [address] PCP - General Family Medicine 05/06/14 Sweatband Perforator Relationship Specialty Start Date End Date Humberto Jackson MD [address] [place] [address] PCP - General Family Medicine 05/06/14 Sweatband Perforator Relationship Specialty Start Date End Date Humberto Jackson MD [address] [place] [address] PCP - General Family Medicine 05/06/14 Sweatband Perforator Relationship Specialty Start Date End Date Humberto Jackson MD [address] [place] [address] PCP - General Family Medicine 05/06/14 Sweatband Perforator Relationship Specialty Start Date End Date Humberto Jackson MD [address] [place] [address] PCP - General Family Medicine 05/06/14 Sweatband Perforator Relationship Specialty Start Date End Date Humberto Jackson MD [address] [place] [address] PCP - General Family Medicine 05/06/14 Sweatband Perforator Relationship Specialty Start Date End Date Humberto Jackson MD [address] [place] [address] PCP - General Family Medicine 05/06/14 Sweatband Perforator Relationship Specialty Start Date End Date Humberto Jackson MD [address] [place] [address] PCP - General Family Medicine 05/06/14 Sweatband Perforator Relationship Specialty Start Date End Date Humberto Jackson MD [address] [place] [address] PCP - General Family Medicine 05/06/14 Sweatband Perforator Relationship Specialty Start Date End Date Humberto Jackson MD [address] [place] [address] PCP - General Family Medicine 05/06/14 Sweatband Perforator Relationship Specialty Start Date End Date Humberto Jackson MD [address] [place] [address] PCP - General Family Medicine 05/06/14 Sweatband Perforator Relationship Specialty Start Date End Date Humberto Jackson MD [address] [place] [address] PCP - General Family Medicine 05/06/14 Sweatband Perforator Relationship Specialty Start Date End Date Humberto Jackson MD [address] [place] [address] PCP - General Family Medicine 05/06/14 Sweatband Perforator Relationship Specialty Start Date End Date Humberto Jackson MD [address] [place] [address] PCP - General Family Medicine 05/06/14 Sweatband Perforator Relationship Specialty Start Date End Date Humberto Jackson MD [address] [place] [address] PCP - General Family Medicine 05/06/14 Sweatband Perforator Relationship Specialty Start Date End Date Humberto Jackson MD [address] [place] [address] PCP - General Family Medicine 05/06/14 Dominik Kelley, GHULAM.MECHANICAL MANUFACTURING TECHNICIAN [address] [place] [address] Cp Bleacher Operator Family Medicine 09/14/24 Kenyatta Castaneda PA-C [address] [place] [address] [facility] 09/14/24 Sweatband Perforator Relationship Specialty Start Date End Date Humberto Jackson MD [address] [place] [address] PCP - General Family Medicine 05/06/14 Dominik Kelley, WEIGH BOX TENDER.MECHANICAL MANUFACTURING TECHNICIAN [address] [place] [address] Cp Bleacher Operator Family Medicine 09/14/24 Kenyatta Castaneda PA-C [address] [place] [address] [facility] 09/14/24 Sweatband Perforator Relationship Specialty Start Date End Date Humberto Jackson MD [address] [place] [address] PCP - General Family Medicine 05/06/14 Dominik Kelley, WEIGH BOX TENDER.MECHANICAL MANUFACTURING TECHNICIAN [address] [place] [address] Cp Bleacher Operator Family Medicine 09/14/24 Kenyatta Castaneda PA-C [address] [place] [address] Cp Bleacher Operator Family Medicine 09/14/24 Sweatband Perforator Relationship Specialty Start Date End Date Humberto Jackson MD [address] [place] [address] PCP - General Family Medicine 05/06/14 Dominik Kelley APRN.MECHANICAL MANUFACTURING TECHNICIAN [address] [place] [address] Cp Bleacher Operator Family Medicine 09/14/24 Kenyatta Castaneda PA-C [address] [place] [address] Cp Bleacher Operator Family Medicine 09/14/24 Sweatband Perforator Relationship Specialty Start Date End Date Humberto Jackson MD [address] [place] [address] PCP - General Family Medicine 05/06/14 Dominik Kelley APRN.MECHANICAL MANUFACTURING TECHNICIAN [address] [place] [address] Cp Bleacher Operator Family Medicine 09/14/24 Kenyatta Castaneda PA-C [address] [place] [address] Cp Bleacher Operator Family Medicine 09/14/24 Sweatband Perforator Relationship Specialty Start Date End Date Humberto Jackson MD [address] [place] [address] PCP - General Family Medicine 05/06/14 Dominik Kelley APRN.MECHANICAL MANUFACTURING TECHNICIAN [facility] [place] [address] Cp Bleacher Operator Family Medicine 09/14/24 Kenyatta Castaneda PA-C [address] [place] [address] Cp Bleacher Operator Family Medicine 09/14/24 Sweatband Perforator Relationship Specialty Start Date End Date Humberto Jackson MD [address] [place] [address] PCP - General Family Medicine 05/06/14 Dominik Kelley APRN.MECHANICAL MANUFACTURING TECHNICIAN [address] [place] [address] Cp Bleacher Operator Family Medicine 09/14/24 Kenyatta Castaneda PA-C [address] [place] [address] Cp Bleacher Operator Family Medicine 09/14/24 Sweatband Perforator Relationship Specialty Start Date End Date Humberto Jackson MD [address] [place] [address] PCP - General Family Medicine 05/06/14 Dominik Kelley APRN.MECHANICAL MANUFACTURING TECHNICIAN [address] [place] [address] Cp Bleacher Operator Family Medicine 09/14/24 Kenyatta Castaneda PA-C [address] [place] [address] Cp Bleacher Operator Family Medicine 09/14/24 Sweatband Perforator Relationship Specialty Start Date End Date Humberto Jackson MD [address] [place] [address] PCP - General Family Medicine 05/06/14 Dominik Kelley APRN.MECHANICAL MANUFACTURING TECHNICIAN [address] [place] [address] Cp Bleacher Operator Family Medicine 09/14/24 Kenyatta Castaneda PA-C [address] [place] [address] Cp Bleacher Operator Family Medicine 09/14/24 Sweatband Perforator Relationship Specialty Start Date End Date Humberto Jackson MD [address] [place] [address] PCP - General Family Medicine 05/06/14 Dominik Kelley APRN.MECHANICAL MANUFACTURING TECHNICIAN [address] [place] [address] Cp Bleacher Operator Family Medicine 09/14/24 Kenyatta Castaneda PA-C [address] [place] [address] Cp Bleacher Operator Family Medicine 09/14/24 Sweatband Perforator Relationship Specialty Start Date End Date Humberto Jackson MD [address] [place] [address] PCP - General Family Medicine 05/06/14 Dominik Kelley, GHULAM.MECHANICAL MANUFACTURING TECHNICIAN [address] [facility] [place] [address] Cp Bleacher Operator Family Medicine 09/14/24 Kenyatta Castaneda PA-C [address] [place] [address] Cp Bleacher Operator Family Medicine 09/14/24 Sweatband Perforator Relationship Specialty Start Date End Date Humberto Jackson MD [address] [place] [address] PCP - General Family Medicine 05/06/14 Dominik Kelley, GHULAM.MECHANICAL MANUFACTURING TECHNICIAN [address] [place] [address] Cp Bleacher Operator Family Medicine 09/14/24 Kenyatta Castaneda PA-C [address] [place] [address] Cp Bleacher Operator Family Medicine 09/14/24 Sweatband Perforator Relationship Specialty Start Date End Date Humberto Jackson MD [address] [place] [address] PCP - General Family Medicine 05/06/14 Dominik Kelley, WEIGH BOX TENDER.MECHANICAL MANUFACTURING TECHNICIAN [address] [place] [address] Cp Bleacher Operator Family Medicine 09/14/24 Kenyatta Castaneda PA-C [address] [place] [address] Cp Bleacher Operator Family Medicine 09/14/24 Sweatband Perforator Relationship Specialty Start Date End Date Humberto Jackson MD [address] [place] [address] PCP - General Family Medicine 05/06/14 Dominik Kelley, WEIGH BOX TENDER.MECHANICAL MANUFACTURING TECHNICIAN [address] [place] [address] Cp Bleacher Operator Family Medicine 09/14/24 Kenyatta Castaneda PA-C [address] [place] [address] Cp Bleacher Operator Family Medicine 09/14/24 Sweatband Perforator Relationship Specialty Start Date End Date Humberto Jackson MD [address] [place] [address] PCP - General Family Medicine 05/06/14 Dominik Kelley APRN.MECHANICAL MANUFACTURING TECHNICIAN [address] [place] [address] Cp Bleacher Operator Family Medicine 09/14/24 Kenyatta Castaneda PA-C [address] [place] [address] Cp Bleacher Operator Family Medicine 09/14/24 Sweatband Perforator Relationship Specialty Start Date End Date Humberto Jackson MD [address] [place] [address] PCP - General Family Medicine 05/06/14 Dominik Kelley, GHULAM.MECHANICAL MANUFACTURING TECHNICIAN [address] [place] [address] Cp Bleacher Operator Family Medicine 09/14/24 Kenyatta Castaneda PA-C [address] [place] [address] Cp Bleacher Operator Family Medicine 09/14/24 Sweatband Perforator Relationship Specialty Start Date End Date Humberto Jackson MD [address] [place] [address] PCP - General Family Medicine 05/06/14 Dominik Kelley APRN.MECHANICAL MANUFACTURING TECHNICIAN [address] [place] [address] Cp Bleacher Operator Family Medicine 09/14/24 Kenyatta Castaneda PA-C [address] [place] [address] Cp Bleacher Operator Family Medicine 09/14/24 Sweatband Perforator Relationship Specialty Start Date End Date Humberto Jackson MD [address] [place] [address] PCP - General Family Medicine 05/06/14 Dominik Kelley APRN.MECHANICAL MANUFACTURING TECHNICIAN [address] [place] [address] Cp Bleacher Operator Family Medicine 09/14/24 Kenyatta Castaneda PA-C [address] [place] [address] Cp Bleacher Operator Family Medicine 09/14/24 Sweatband Perforator Relationship Specialty Start Date End Date Humberto Jackson MD [address] [place] [address] PCP - General Family Medicine 05/06/14 Dominik Kelley APRN.MECHANICAL MANUFACTURING TECHNICIAN [address] [place] [address] Cp Bleacher Operator Family Medicine 09/14/24 Kenyatta Castaneda PA-C [address] [place] [address] Cp Bleacher Operator Family Medicine 09/14/24 Sweatband Perforator Relationship Specialty Start Date End Date Humberto Jackson MD [address] [place] [address] PCP - General Family Medicine 05/06/14 Dominik Kelley, GHULAM.MECHANICAL MANUFACTURING TECHNICIAN [address] [place] [address] Cp Bleacher Operator Family [facility] 09/14/24 eKnyatta Castaneda PA-C [address] [place] [address] [facility] 09/14/24 Sweatband Perforator Relationship Specialty Start Date End Date Humberto Jackson MD [address] [place] [address] PCP - General Family Medicine 05/06/14 Dominik Kelley APRN.MECHANICAL MANUFACTURING TECHNICIAN [address] [place] [address] [facility] 09/14/24 Kenyatta Castaneda PA-C [address] [place] [address] [facility] 09/14/24 Sweatband Perforator Relationship Specialty Start Date End Date Humberto Jackson MD [address] [place] [address] PCP - General Family Medicine 05/06/14 Dominik Kelley APRN.MECHANICAL MANUFACTURING TECHNICIAN [address] [place] [address] Cp Bleacher Operator Family Medicine 09/14/24 Kenyatta Castaneda PA-C [address] [place] [address] [facility] 09/14/24 Sweatband Perforator Relationship Specialty Start Date End Date Humberto Jackson MD [address] [place] [address] PCP - General Family Medicine 05/06/14 Dominik Kelley APRN.MECHANICAL MANUFACTURING TECHNICIAN [facility] [place] [address] Cp Bleacher Operator Family Medicine 09/14/24 Kenyatta Castaneda PA-C [address] [place] [address] Cp Bleacher Operator Family Medicine 09/14/24 Sweatband Perforator Relationship Specialty Start Date End Date Humberto Jackson MD [address] [place] [address] PCP - General Family Medicine 01/13/25 Dominik Kelley APRN.MECHANICAL MANUFACTURING TECHNICIAN [address] [place] [address] Cp Bleacher Operator Family Medicine 09/14/24 Kenyatta Castaneda PA-C [address] [place] [address] Cp Bleacher Operator Family Medicine 09/14/24 Sweatband Perforator Relationship Specialty Start Date End Date Humberto Jackson MD [address] [place] [address] PCP - General Family Medicine 01/13/25 Dominik Kelley APRN.MECHANICAL MANUFACTURING TECHNICIAN [address] [place] [address] Cp Bleacher Operator Family Medicine 09/14/24 Kenyatta Castaneda PA-C [facility] [place] [address] Cp Bleacher Operator Family Medicine 09/14/24 Sweatband Perforator Relationship Specialty Start Date End Date Humberto Jackson MD [address] [place] [address] PCP - General Family Medicine 01/13/25 Dominik Kelley APRN.MECHANICAL MANUFACTURING TECHNICIAN [address] [place] [address] Cp Bleacher Operator Family Medicine 09/14/24 Kenyatta Castaneda PA-C [address] [place] [address] Cp Bleacher Operator [facility] 09/14/24 Sweatband Perforator Relationship Specialty Start Date End Date Humberto Jackson MD [address] [place] [address] PCP - General Family Medicine 01/13/25 Dominik Kelley APRN.MECHANICAL MANUFACTURING TECHNICIAN [address] [place] [address] Cp Bleacher Operator Family Medicine 09/14/24 Kenyatta Castaneda PA-C [address] [place] [address] [facility] 09/14/24 Sweatband Perforator Relationship Specialty Start Date End Date Humberto Jackson MD [address] [place] [address] PCP - General Family Medicine 01/13/25 Dominik Kelley APRN.MECHANICAL MANUFACTURING TECHNICIAN [address] [place] [address] Cp Bleacher Operator Family Medicine 09/14/24 Kenyatta Castaneda PA-C [address] [place] [address] Cp Bleacher Operator Family Medicine 09/14/24 Sweatband Perforator Relationship Specialty Start Date End Date Humberto Jackson MD [address] [place] [address] PCP - General Family Medicine 01/13/25 Dominik Kelley APRN.MECHANICAL MANUFACTURING TECHNICIAN [address] [place] [address] Cp Bleacher Operator Family Medicine 09/14/24 Kenyatta Castaneda PA-C [address] [place] [address] Cp Bleacher Operator Family Medicine 09/14/24 Sweatband Perforator Relationship Specialty Start Date End Date Humberto Jackson MD [address] [place] [address] PCP - General Family Medicine 01/13/25 Dominik Kelley APRN.MECHANICAL MANUFACTURING TECHNICIAN [address] [place] [address] Cp Bleacher Operator Family Medicine 09/14/24 02/23/25 Kenyatta Castaneda PA-C [address] [place] [address] Cp Bleacher Operator Family Medicine 09/14/24 Sweatband Perforator Relationship Specialty Start Date End Date Humberto Jackson MD [address] [place] [address] PCP - General Family Medicine 01/13/25 Kenyatta Castaneda PA-C [address] [place] [address] Cp Bleacher Operator Family Medicine 09/14/24 Sweatband Perforator Relationship Specialty Start Date End Date Humberto Jackson MD [address] [place] [address] PCP - General Family Medicine 01/13/25 Kenyatta Castaneda PA-C [address] [place], [place] 2[address] Cp Bleacher Operator Family Medicine 09/14/24 Sweatband Perforator Relationship Specialty Start Date End Date Humberto Jackson MD [address] [place], [place] [address] PCP - General Family Medicine 01/13/25 Kenyatta Castaneda PA-C [address] [place] [address] Cp Bleacher Operator Family [facility] 09/14/24 Sweatband Perforator Relationship Specialty Start Date End Date Humberto Jackson MD [facility] [place], [place] [address] PCP - General Family Medicine 05/06/14 01/12/25 Humberto Jackson MD [address] [place], [place] [address] PCP - General Family Medicine 01/13/25 Dominik Kelley APRN.CNP [address] [place] [id number] Cp Bleacher Operator Family [facility] 09/14/24 02/23/25 Kenyatta Castaneda PA-C [address] [place], [place] [id number] Cp Bleacher Operator Family [facility] 09/14/24 Sweatband Perforator Relationship Specialty Start Date End Date Humberto Jackson MD [address] [place], [place] 28[address] PCP - General Family Medicine 01/13/25 Dominik Kelley, WEIGH BOX TENDER.MECHANICAL MANUFACTURING TECHNICIAN [address] [place] [address] Cp Bleacher Operator Family Medicine 03/10/25 Kenyatta Castaneda PA-C [address] [place] [address] [facility] 03/10/25 Sweatband Perforator Relationship Specialty Start Date End Date Humberto Jackson MD [address] [place] [address] PCP - General Family Medicine 01/13/25 Dominik Kelley, WEIGH BOX TENDER.MECHANICAL MANUFACTURING TECHNICIAN [address] [place] [address] [facility] 03/10/25 Kenyatta Castaneda PA-C [address] [place] [address] [facility] 03/10/25 Sweatband Perforator Relationship Specialty Start Date End Date Humberto Jackson MD [address] [place] [address] PCP - General Family Medicine 01/13/25 Dominik Kelley, WEIGH BOX TENDER.MECHANICAL MANUFACTURING TECHNICIAN [facility] [place] [address] [facility] 03/10/25 Kenyatta Castaneda PA-C [address] [place] [address] [facility] 03/10/25 Goals (unrecognized section and content) [...] ON THE PRIMARY CLINICAL RECORDS. [facility]. provides no warranty or guarantee of the accuracy or completeness of information in this document.
[2025-03-16 15:36] LABS: Ferritin 5 ng/mL (37-417)
[2025-03-16 16:08] LABS: Iron 36 ug/dL (65-175); Iron Binding Capacity,Total 364 ug/dL (250-450); Iron Binding Capacity,Unsat 328 ug/dL (228-428)
[2025-03-16 16:19] LABS: AST(SGOT) 15 U/L (<=37); Alanine Aminotransfer ALT/SGPT 6 U/L (<=46); Alkaline Phosphatase 175 U/L (40-129); Bilirubin, Direct < 0.08 mg/dL (0.00-0.30); Globulin 2.1 g/dL (2.2-4.2); Total Bilirubin < 0.15 mg/dL (0.00-1.30)
[2025-03-16] MEDS: Pantoprazole Sodium 80 MG in 0.9% Normal Saline (50mL Bag) 15 ML 420 MG IV BOLUS (17:05)
[2025-03-16] MEDS: Pantoprazole Sodium 80 MG in 0.9% Normal Saline (100mL Bag) 80 ML 10 MG CONT INF (17:13)
[2025-03-16] MEDS: Ensure Plus High Protein 120 ML LIQUID PO (17:18)
[2025-03-16] MEDS: Sodium Ferric Gluconat/Sucrose 250 MG in 0.9% Normal Saline (250mL Bag) 250 ML 135 MG IV (17:36)
[2025-03-16 18:09] LABS: Hematocrit 24.4 % (40-54); Hemoglobin 7.6 g/dL (13.0-16.5)
[2025-03-16 18:24] LABS: Troponin T High Sens 4 HR < 6 ng/L (<=22)
[2025-03-16 22:06] LABS: Hematocrit 25.3 % (40-54); Hemoglobin 7.9 g/dL (13.0-16.5)
[2025-03-16] MEDS: Doxepin Hydrochloride 10 MG Capsule PO (22:38)
[2025-03-16] MEDS: busPIRone 15 MG TABLET PO (22:38)
[2025-03-16] MEDS: OLANZapine 5 MG/TAB TAB.RAPDIS PO (22:43)
[2025-03-16] MEDS: Insulin Lispro 100 UNIT/ML INSULN.PEN SC (22:43)
--- NOTE | 2025-03-16 22:56 | CPS ---
Patient refused PAP therapy for night time use, does not wear one at home.
[2025-03-16 23:39] LABS: Bedside Glucose 177 mg/dL (74-106)
[2025-03-17] VITALS (14 sets, daily range): BP systolic 110–134; BP diastolic 74–91; PULSE 76–98; RESP 16–20; TEMP 36.3–37.3; O2SAT 85–98
[2025-03-17] MEDS: Pantoprazole Sodium 80 MG in 0.9% Normal Saline (100mL Bag) 80 ML 10 MG CONT INF ×2 (04:20→16:07)
[2025-03-17 04:29] LABS: Absolute Lymphocyte Count 2.47 X10^3/uL (0.83-4.51); Absolute Neutrophil Count 5.1 X10^3/uL (2.0-7.7); Basophil# 0.06 X10^3/uL; Basophil% 0.7 % (0-1); Eosinophil# 0.22 X10^3/uL; Eosinophils% 2.6 % (0-5); Hemoglobin 7.2 g/dL (13.0-16.5); Lymphocyte # 2.47 X10^3/ul (0.83-4.51); Lymphocyte % 29.1 % (19-41); Mean Corp Hgb Conc 31.3 g/dL (32-36); Mean Corpuscular Hgb 24.1 pg (27.0-32.0); Mean Corpuscular Volume 76.9 fL (80-94); Mean Platelet Vol. 11.4 fl (6.2-12.0); Monocyte# 0.64 X10^3/uL; Monocyte% 7.5 % (0-10); NRBC Flagged by Analyzer 0.2 % (0-5); Neutrophil # 5.05 X10^3/uL (2.7-7.7); Neutrophil % 59.6 % (47-70); Platelet Count 363 K/mm3 (150-450); RBC Distribution Width CV 15.1 % (11.6-14.6); RBC Distribution Width SD 41.2 fl (35.1-43.9); Red Blood Count 2.99 M/mm3 (4.6-6.2); White Blood Count 8.5 K/mm3 (4.4-11.0)
[2025-03-17 05:18] LABS: Anion Gap 10 (5-15); BUN 9 mg/dL (4-19); BUN/Creat Ratio 12.4 RATIO (10-20); Calcium,Total 8.6 mg/dL (7.6-11.0); Carbon Dioxide 22.6 mmol/L (21.0-32.0); Chloride 105 mmol/L (98-108); Creatinine, Serum 0.72 mg/dL (0.70-1.20); EST Glomerular Filtration Rate 111 (>60); Estimated Creatinine Clearance 170.67 ml/min (50-250); Glucose 181 mg/dL (70-99); Magnesium 2.2 mg/dL (1.5-2.2); Phosphorus 3.9 mg/dL (2.7-4.5); Potassium 3.8 mmol/L (3.3-5.1); Sodium Level 138 mmol/L (133-145)
[2025-03-17 07:58] LABS: Hemoglobin A1c 8.4 % (<=5.6)
[2025-03-17] MEDS: Sodium Ferric Gluconat/Sucrose 250 MG in 0.9% Normal Saline (250mL Bag) 250 ML 135 MG IV (09:21)
[2025-03-17 10:27] LABS: Hematocrit 24.1 % (40-54); Hemoglobin 7.6 g/dL (13.0-16.5)
--- NOTE | 2025-03-17 12:00 | PCM.PRE.AN2 ---
ASA Classification* ASA Classification ASA Classification: 2 Assessment & Plan Anesthesia* Anesthesia Assessment Anesthesia Assessment: Discussed sedation and/or anesthesia options, risks, benefits, and alternatives with patient/parents/legal guardian/POA. Questions invited. The patient/parents/legal guardian/POA seems to understand and agrees to proceed with anesthesia plan. Reviewed the physical assessment, medical history, allergy history and patient home medications list prior to surgery/procedure/anesthetic and documented any changes. Performed airway and anesthesia risk assessments. Anesthesia Type Anesthesia Type: MAC Anesthesia Focused Assessment* Temperature: 98.7 F Pulse Rate: 81 Blood Pressure: 134/89 Respiratory Rate: 18 Pulse Ox: 98 Oxygen Flow Rate (L/min): 2 Airway Assessment Mouth opens: >3 cm Mallampati Score: II Labs Anesthesia Preop lab: CBC WBC 8.5 K/mm3 (4.4-11.0) 03/17/25 04:09 03/17/25 RBC 2.99 M/mm3 (4.6-6.2) L 03/17/25 04:09 03/17/25 Hgb 7.6 g/dL (13.0-16.5) L 03/17/25 10:20 03/17/25 Hct 24.1 % (40-54) L 03/17/25 10:20 03/17/25 Plt Count 363 K/mm3 (150-450) 03/17/25 04:09 03/17/25 CHEMISTRY Potassium 3.8 mmol/L (3.3-5.1) 03/17/25 04:09 03/17/25 Sodium 138 mmol/L (133-145) 03/17/25 04:09 03/17/25 Magnesium 2.2 mg/dL (1.5-2.2) 03/17/25 04:03/17/25 Phosphorus 3.9 mg/dL (2.7-4.5) 03/17/25 04:03/17/25 BUN 9 mg/dL (4-19) 03/17/25 04:03/17/25 Creatinine 0.72 mg/dL (0.70-1.20) 03/17/25 04:09 03/17/25 Glucose 181 mg/dL (70-99) H 03/17/25 04:09 03/17/25 POC Glucose 177 mg/dL (74-106) H 03/16/25 22:41 03/16/25 COAG PT 12.8 SECONDS (11.7-14.9) 10/22/18 05:05 10/22/18 Pre-Assessment Diagnosis/Proposed Procedure Planned Operative Procedure(s): EGD Anesthesia History Anesthesia History - mortgage specialist: Anesthesia History - mortgage specialist Hx Hospitalization Any Problems With Anesthesia No 04/14/23 16:13 Cholinesterase deficiency No 04/14/23 16:13 You/Your Family Experience No 04/14/23 16:13 fever (hyperthermia) with Relationship Recent Exposure to Contagious No 04/14/23 16:13 Disease Does patient have nerve No 04/14/23 16:13 stimulator Patient instructed to have device shut off --Does patient have Pacemaker or ICD? When Was Last Pacemaker Check QUESTION #4 FULL TEXT: You/Your Family Experience fever (hyperthermia) with Anesthesia Last Oral Intake Last Oral intake: Last Oral Intake NPO since Meds taken in AM with sips of water? Meds patient instructed to take am of surgery PONV PONV - mortgage specialist: PONV - mortgage specialist Female HX of Motion Sickness HX of N/V After Surgery Non-Smoker Duration of Surgery greater than 60 minutes Number of Risk Factors PONV Score Height & Weight Height & Weight: Anesthesia: Height & Weight Height 6 ft 2 in 03/16/25 15:56 Weight: 122.47 kg 03/16/25 15:56 Body Mass Index (BMI) 34.7 03/16/25 15:56 Respiratory Assessment Respiratory Assessment - mortgage specialist: Respiratory Tract Infection Hx - mortgage specialist Hx Respiratory Tract Infection No 04/14/23 16:13 STOP Sleep Apnea STOP Sleep Apnea - mortgage specialist: STOP Sleep Apnea - mortgage specialist Hx Hypertension Yes: recently pre htn 03/16/25 15:56 Hx Sleep Apnea Yes 03/16/25 15:56 CPAP No 03/16/25 15:56 BIPAP No 03/16/25 15:56 Do you snore loudly (louder than talking or can be heard Do you often feel tired/ fatigued/ sleepy during daytime? Has anyone observed you stop breathing during sleep? STOP Results Positive 03/16/25 15:56 QUESTION #5 FULL TEXT : Do you snore loudly (louder than talking or can be heard through closed doors)? Tobacco Use History Tobacco Use History - mortgage specialist: Tobacco Use History - mortgage specialist Tobacco Use Smoking Status Never smoker 03/16/25 15:56 Hx Tobacco Use No 03/16/25 15:56 Years Smoking Packs Smoked per Day Smoking Cessation Date was within the last 15 years Hx Smoking Cessation Date Hx Smoking Cessation Counseling Hematologic Medial History Hematologic Hx - mortgage specialist: Hematologic Medical Hx - clinical documentation consultant Hx of Blood Transfusion Yes 03/16/25 15:56 Hx of Transfusion in last 3 No 03/16/25 15:56 Months Date of Last Transfusion (if within last 3 months) Ever experience any problems No 03/16/25 15:56 with transfusion(s)? Specify any problems Hx of Preganancy in last 3 N/A 03/16/25 15:56 Months Nurse Filling Out Transfusion NMARTY 03/16/25 15:56 & Questions: Date: 03/16/25 03/16/25 15:56 Time: 16:13 03/16/25 15:56 Patient unable to answer at this time (ie. confused, unrespo /Reproduction History /Reproductive History - mortgage specialist: /Reproductive Hx- mortgage specialist Hx Now Gestational Age (in weeks): EDC: Hx Hx Para Hx Section SAB No 04/14/23 16:13 Active Medications Active Medications: Current Medications Generic Name Dose Route Start Last Admin Trade Name Freq PRN Reason Stop Dose Admin Acetaminophen 650 mg 03/16/25 15:57 Acetaminophen 325 Mg Tablet PO Q6H PRN PRN Pain 1-10 Or Fever>100.7 Albuterol Sulfate 2.5 mg 03/16/25 15:57 Albuterol 2.5 Mg/3 Ml Vial.Neb. INHALATION Q2H PRN PRN SOB &/OR WHEEZING Atorvastatin Calcium 80 mg 03/17/25 10:00 Atorvastatin Calcium 80 Mg Tablet PO DAILY SIENA Buspirone HCl 15 mg 03/16/25 22:00 03/16/25 22:38 Buspirone 15 Mg Tablet PO 15 mg BID SIENA Administration Doxepin HCl 10 mg 03/16/25 22:00 03/16/25 22:38 Doxepin Hydrochloride 10 Mg Capsule PO 10 mg QHS SIENA Administration Duloxetine HCl 60 mg 03/17/25 10:00 Duloxetine Hcl 60 Mg Capsule PO DAILY SIENA Fenofibrate 48 mg 03/17/25 10:00 Fenofibrate 48 Mg Tablet PO DAILY SIENA Fluticasone Propionate 1 spray 03/16/25 15:57 Fluticasone 0.05% 1 [place] Nasal.Sry NASAL DAILY PRN allergic symptoms Pantoprazole Sodium 80 mg/ 100 mls @ 10 mls/hr 03/16/25 15:57 03/17/25 09:29 Sodium Chloride CONT INF 03/19/25 15:58 0 mls/hr Q10H SIENA Infusion Sodium Chloride 250 mls @ 15 mls/hr 03/16/25 16:19 IV .[id number] PRN Saline Flush Sodium Chloride 250 mls @ 15 mls/hr 03/16/25 16:19 IV .[id number] PRN Additional IVPB Infusion Ferric Sodium Gluconate 270 mls @ 135 mls/hr 03/16/25 18:00 03/17/25 09:21 Complex 250 mg/ Sodium IV 03/18/25 11:59 135 mls/hr Chloride DAILY SIENA Administration Insulin Human Lispro 0 unit 03/16/25 16:00 03/17/25 06:24 Insulin Lispro 100 Unit/Ml Insuln.Pen SC Not Given ACHS SIENA Protocol Melatonin 3 mg 03/16/25 15:57 Melatonin 3 Mg Tablet PO QHS PRN PRN INSOMNIA Multivitamins 1 tablet 03/17/25 08:00 Multivitamins,Therapeutic Tablet PO DAILYCM SIENA Nutritional Formula (Lactose Free) 120 ml 03/16/25 17:00 03/16/25 17:18 Ensure Plus High Protein 120 Ml Liquid PO 120 ml TIDCM SIENA Administration Nutritional Formula (Lactose Free) 120 ml 03/17/25 10:00 Ensure Plus High Protein 120 Ml Liquid PO 4X/DAY SIENA Olanzapine 5 mg 03/16/25 22:00 03/16/25 22:43 Olanzapine 5 Mg/Tab Tab.Rapdis PO 5 mg QHS SIENA Administration Protocol Ondansetron HCl 4 mg 03/16/25 15:57 Ondansetron 4 Mg/2 Ml Vial IV Q8H PRN PRN NAUSEA/VOMITING Pantoprazole Sodium 40 mg 03/20/25 10:00 Pantoprazole Sodium 40 Mg Tablet PO BID SIENA Senna/Docusate Sodium 2 tablet 03/16/25 15:57 Senna/Docusate Sodium 1 Tablet PO BID PRN PRN Constipation Sodium Chloride 10 - 40 ml 03/16/25 16:19 0.9% Saline Lock 10 Ml Syringe IV UD PRN SALINE FLUSH [facility] Medical History History of rectal abscess Multiple thyroid nodules Restrictive airway disease Abnormal chest CT Pneumonia Acute respiratory failure Shortness of breath Community acquired pneumonia Chronic headache Acute respiratory failure with hypoxia GERD (gastroesophageal reflux disease) Anxiety and depression Diabetes mellitus, type II Obesity (BMI 30-39.9) HLD (hyperlipidemia) MIKE (obstructive sleep apnea) Home Medications ?Medication ?Instructions ?Recorded ?Last Taken ?Type esomeprazole magnesium 40 mg 40 mg PO QHS gerd 10/10/17 03/15/25 22:00 History capsule,delayed release 40 mg fenofibrate 50 mg capsule 54 mg PO DAILY cholesterol 10/10/17 03/16/25 08:00 History 54 mg multivitamin 1 ea PO DAILY supplement 10/10/17 03/16/25 08:00 History 1 ea atorvastatin 20 mg tablet 20 mg PO DAILY high cholesterol 03/22/18 03/16/25 08:00 History 20 mg metformin 500 mg tablet 1,000 mg PO BID diabetes 03/22/18 03/16/25 08:00 History 1,000 mg doxepin 10 mg capsule 10 mg PO QHS insomnia 10/20/18 03/15/25 22:00 History 10 mg olanzapine 2.5 mg tablet 2.5 mg PO QHS insomnia 10/20/18 03/15/25 22:00 History 2.5 mg zonisamide 25 mg capsule 25 mg PO DAILY unknown 10/20/18 03/16/25 08:00 History 25 mg buspirone 15 mg tablet mg PO BID anxiety 04/14/23 03/16/25 08:00 History 15 mg duloxetine 60 mg capsule,delayed mg PO DAILY depression 04/14/23 03/16/25 08:00 History release 60 mg insulin lispro protamine-lispro subcut Type 2 DM 04/14/23 Unknown History 100 unit/mL (75-25) subcutaneous pen atorvastatin 80 mg tablet 80 mg PO DAILY hypercholestremia 03/16/25 Unknown History dexmethylphenidate 20 mg 20 mg PO DAILY on hold 03/16/25 Unknown History capsule,extended release [id number] Held on 03/16/25. Instructions: Order Changed duloxetine 30 mg capsule,delayed 30 mg PO DAILY depression 03/16/25 Unknown History release ferrous sulfate 325 mg (65 mg 325 mg PO BID anemia 03/16/25 Unknown History iron) tablet Allergy/AdvReac Type Severity Reaction Status Date / Time citalopram Allergy Unknown Unknown Verified 03/16/25 12:07 venlafaxine Allergy Unknown Unknown Verified 03/16/25 12:07 metoclopramide (From Reglan) Allergy weirds me Verified 03/16/25 12:07 out sertraline (From Zoloft) Allergy sexual Verified 03/16/25 12:07 side effects topiramate (From Topamax) Allergy Unknown Verified 03/16/25 12:07 Family History Father Colon cancer at age 53 Heart disease Myocardial infarction Surgical History Hx of drainage of abscess (~04/2023) Hx of appendectomy Hx of tonsillectomy Social History household members: spouse housing: house current occupational status: employed 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
--- NOTE | 2025-03-17 12:10 | CASEMGMT ---
Addendum entered by Shaka Morales 03/17/25 13:46: 1330: Pt remains out of room. Original Note: RN CM note: RN CM to room to complete initial RN CM assessment. Pt is out of room for procedure. Dayami BSN RN CM
[2025-03-17] MEDS: Lactated Ringers 1,000 ML 15 ML IV (12:21)
[2025-03-17 12:45] LABS: Bedside Glucose 179 mg/dL (74-106)
--- NOTE | 2025-03-17 12:45 | PCM.PN.BLA ---
Progress Note 49-year-old patient presented the emergency department complaint of not feeling well for over a week and a half. Patient states that he saw primary care physician who did some blood work and noted that he was anemic with hemoglobin of 9 over a week ago. Patient was scheduled to have a colonoscopy later this month. He was started on iron. He continues to not feel well. He complains of feeling lightheaded and dizzy with standing and heart racing. He denies blood in his stool or black tarry stool. Patient states he has not had a good bowel movement in 3 days and he attributes that to the iron. He denies fevers chills or sweats. He has had about an 18 pound weight loss in the last month because he is just not been eating as much and is cut his portion sizes. There is a family history of colon cancer. CT/Abdomen/Pelvis W IV Cont ONLY IMPRESSION: 1. Mildly distended stomach, secondary to gastric pylorus circumferential wall thickening and resultant luminal narrowing. Findings concerning for an underlying obstructive gastric mass/outlet obstruction. Recommend further evaluation with endoscopy. 2. Multiple prominent-mildly enlarged retroperitoneal nodes. 3. Diffuse nodularity within the anterior mesentery and bilateral paracolic gutters, concerning for peritoneal carcinomatosis. 4. Multiple sclerotic osseous lesions concerning for osseous metastasis. Physical Exam Const alert, oriented x3, no apparent distress and healthy appearing General Appearance: cooperative GI normal to inspection, nondistended, normoactive bowel sounds, soft to palpation, non-tender and non-distended Percussion: normal to percussion Rectal Exam: deferred Assessment & Plan Assessment/Plan (1) Gastric mass: (2) Symptomatic anemia: (3) Weight loss: (4) Microcytic anemia: PLAN: Plan This is a very pleasant 49-year-old gentleman with recent onset of abdominal pain and discovered to have severe microcytic anemia - CT of the abdomen and pelvis shows gastric outlet obstruction with probable mass and metastatic disease - Will perform an upper endoscopy to evaluate his upper GI tract for iron deficiency anemia and abnormal CT scan. He was explained alternatives, risk and benefits include not withstanding bleeding, infection, sepsis, perforation, need emergent . He will have an ASA of 3. Visit Charges Inpatient E&M: 11834 Subs Hosp L3
--- NOTE | 2025-03-17 13:00 | EGD_PTH ---
PATIENT: BIANCA DELAROSA LOC: MS3 U#:[id number] AGE/SX: 49/M ROOM: [id number] RE03/16/[address]: Dr. Jacky Jaimes DO : 1975 BED: 1 DIS: 03/21/2025 SPEC #: [id number] RECD: 03/17/25 13:20 STATUS: SUGAR CANCINO #: [id number] SANCHEZ: 03/17/25 13:[address]: Jonathan Martinez DEPT: SURGICAL PATHOLOGY RECD BY: Suraj Cheung ENTERED: 03/17/25 14:07 SP TYPE: EGD BIOPSY OT DR: MD Dr. Tia Daniel DO Dr. Mark Tereletsky, DO Tissues: A - Gastric mucous membrane b - Gastric mucous membrane Procedures: Frozen Section (charge) Immunohistochemical Stains Surgery Specimen Level IV IHC Stain ADDITIONAL HEADER OPERATION: EGD with biopsy PRE-OP DIAGNOSIS: Gastric mass, symptomatic anemia, weight loss, microcytic anemia TISSUE SUBMITTED: A- Gastric mass biopsy, B- Gastric mass biopsy FROZEN SECTION DIAGNOSIS A. Gastric mass, biopsy: Malignant neoplasm. MS/mr 03/17/2025 MICROSCOPIC DIAGNOSIS A. Stomach, mass, biopsy: * Gastric mucosa with malignant neoplasm (see part B). * Necrosis with abundant fungal organisms. B. Stomach, mass, biopsy: * Gastric mucosa with poorly differentiated adenocarcinoma - see note and Comment. * Necrosis with abundant fungal organisms. * IHC negative for H pylori organisms. * Note: IHCs were performed at [facility] and [facility]. * Positive: pancytokeratin, CK7, CDX2. * Negative: CK20, CD45, Chromogranin, Synaptophysin, DOG-1, CD117. * Ki67 appears increased. * The positive CK7 with negative CK20 supports an upper GI primary site. COMMENT Selected slides/images were reviewed in intradepartmental consultation by Dr Genesis Lam/GI pathology consensus group (GI pathology division, [facility]). MICROSCOPIC DESCRIPTION Slides are reviewed. All matched controls reacted appropriately. (H pylori, Pancytokeratin, CK7, CK20, CDX2, CD45, Chromogranin, Synaptophysin, Ki67) These tests were developed and their performance characteristics determined by [facility]. They may not have been cleared or approved by the U.S. Food and Drug Administration. The FDA has determined that such clearance or approval is not necessary.? The above immunohistochemical/dualISH?markers are ordered and reviewed by the Pathologist. All controls show appropriate reactivity. (DOG-1, CD117) All immunohistochemistry, in situ hybridization, and histochemical tests were developed by and are performed at the [facility], [address],? [address], [place] [address]. All Immunofluorescent (IF)?tests were developed by and are performed at the [facility], [address] [place] [address], [place], [place] ?[address]. All tests reported here, except those addressing HER2 overexpression as a predictive marker, have not been cleared by or approved by the US Food and Drug Administration (FDA). The laboratory is regulated under CLIA as qualified to perform high-complexity testing. The tests are used for clinical purposes. They should not be regarded as investigational or for research. ? GROSS DESCRIPTION A. Received fresh for frozen section diagnosis labeled with the patient's name and date of . Designated as gastric mucus, frozen section is a 1.0 x 1.0 x 1.0 cm aggregate of dark red tissue fragments. Entirely submitted for frozen section diagnosis and subsequently placed in cassette A1 for permanent sections. B. Received in formalin labeled with the patient's name and date of . Designated as gastric mass BX for H. pylori half and is a 0.7 x 0.5 x 0.1 cm aggregate of [place] soft tissue fragments and flocculent material. Entirely submitted in 1 cassette. [facility] [place] CPT:31462p9,[id number],07270q20 ADDENDUM ADDENDUM ADDENDUM ADDENDUM ADDENDUM ADDENDUM ADDENDUM ADDENDUM ADDENDUM ADDENDUM ADDENDUM ADDENDUM ADDENDUM ADDENDUM ADDENDUM ADDENDUM ADDENDUM 04/03/2025 08:30 ADDENDUM 04/03/2025 08:30 ADDENDUM 04/03/2025 08:30 ADDENDUM 04/03/2025 08:30 ADDENDUM 04/03/2025 08:30 This addendum is added to incorporate an outside pathology consultation report. The case was examined at [facility] by Dr. Treviño (#[id number]) and the following diagnosis was rendered. B. Stomach, mass, biopsy: PD-L1 IHC 22C3 PharmDx Result Expression level: Positive for PD-L1 expression (CPS greater than or equal to 1) Combined Positive Score (CPS): 15 HER2 Immunohistochemistry: Result: Negative (score 1+) Please see complete above mentioned consultation report in EMR
--- NOTE | 2025-03-17 13:28 | OP.EGD_ITS ---
Patient Name: Jaswant Melendez Procedure Date: 03/17/2025 12:52 PM Date of : 1975 Age: 49 Procedure: Upper GI endoscopy Indications: Iron deficiency anemia, Unexplained iron deficiency anemia, Functional Dyspepsia, Indigestion, Heartburn, Suspected upper gastrointestinal bleeding Providers: Jonathan Martinez DO Medicines: Monitored Anesthesia Care Patient Profile: This is a 49 year old male. Refer to note in patient chart for documentation of history and physical. Patient has symptoms of acute abdominal distention and acute epigastric abdominal pain. Previously obtained CT showed a mass in the stomach. Laboratory tests results include iron deficiency anemia and anemia due to chronic blood loss. Complications: No immediate complications. Procedure: Pre-Anesthesia Assessment: - Prior to the procedure, a History and Physical was performed, and patient medications and allergies were reviewed. The patient is competent. The risks and benefits of the procedure and the sedation options and risks were discussed with the patient. All questions were answered and informed consent was obtained. Patient identification and proposed procedure were verified by the physician in the pre-procedure area. Mental Status Examination: alert and oriented. Airway Examination: normal oropharyngeal airway and neck mobility. Respiratory Examination: clear to auscultation. CV Examination: normal. Prophylactic Antibiotics: The patient does not require prophylactic antibiotics. Prior Anticoagulants: The patient has taken no anticoagulant or antiplatelet agents except for NSAID medication. ASA Grade Assessment: II - A patient with mild systemic disease. After reviewing the risks and benefits, the patient was deemed in satisfactory condition to undergo the procedure. The anesthesia plan was to use monitored anesthesia care (MAC). Immediately prior to administration of medications, the patient was re-assessed for adequacy to receive sedatives. The heart rate, respiratory rate, oxygen saturations, blood pressure, adequacy of pulmonary ventilation, and response to care were monitored throughout the procedure. The physical status of the patient was re-assessed after the procedure. After obtaining informed consent, the endoscope was passed under direct vision. Throughout the procedure, the patient's blood pressure, pulse, and oxygen saturations were monitored continuously. The gastroscope was introduced through the mouth, and advanced to the third part of the duodenum. Small bowel enteroscopy was deemed necessary. The upper GI endoscopy was accomplished without difficulty. The patient tolerated the procedure well. Scope In: 1:06:00 PM Scope Out: 1:17:07 PM Total Procedure Duration Time 0 hours 11 minutes 7 seconds Findings: LA Grade D (one or more mucosal breaks involving at least 75% of esophageal circumference) esophagitis with no bleeding was found 31 to 40 cm from the incisors. Suspect gastroparesis due to absence of peristalsis, patient symptoms and retained gastric contents. A large amount of food (residue) was found in the entire examined stomach. One oozing cratered gastric ulcer with pigmented material was found in the gastric antrum and in the prepyloric region of the stomach. The lesion was 21 mm in largest dimension. Biopsies were taken with a cold forceps for histology. Verification of patient identification for the specimen was done. Biopsies were taken with a cold forceps for Helicobacter pylori testing. Verification of patient identification for the specimen was done. Estimated blood loss was minimal. No gross lesions were noted in the entire examined duodenum. Impression: - LA Grade D erosive esophagitis with no bleeding. - Gastroparesis. - A large amount of food (residue) in the stomach with functional gastric outlet obstruction due to lack of accommodation of the distal portion of the stomach - Oozing gastric ulcer with pigmented material. Biopsied. - No gross lesions in the entire examined duodenum. Recommendation: - Discharge patient to home. - Clear liquid diet. - Continue present medications. - Await pathology results. - Repeat upper endoscopy to evaluate the response to therapy. - Metoclopramide 10 mg IV every 6 hours to increase gastric motility - Azithromycin 1 g IV to increase small bowel motility -,Patient may need a stent bridging the pylorus - Consider NG tube with gastric lavage to flush the fluid out of his stomach Procedure Code(s): --- Professional --- 65097, Small intestinal endoscopy, enteroscopy beyond second portion of duodenum, not including ileum; with biopsy, single or multiple CPT copyright 2021 [employer]. All rights reserved. The codes documented in this report are preliminary and upon agricultural extension agent review may be revised to meet current compliance requirements. Jonathan Martinez DO 03/17/2025 1:27:51 PM This report has been signed electronically. Number of Addenda: 0 Note Initiated On: 03/17/2025 12:52 PM
--- NOTE | 2025-03-17 13:28 | OP.CCLET_ITS ---
03/17/2025 Humberto Dos Santos MD Re : Upper GI endoscopy procedure for Jaswant Wigginsjennifer Dear Dr. Dos Santos This procedure was performed on Monday, March 17, 2025. My impressions and recommendations are as follows: Impressions : - LA Grade D erosive esophagitis with no bleeding. - Gastroparesis. - A large amount of food (residue) in the stomach with functional gastric outlet obstruction due to lack of accommodation of the distal portion of the stomach - Oozing gastric ulcer with pigmented material. Biopsied. - No gross lesions in the entire examined duodenum. Recommendations : - Discharge patient to home. - Clear liquid diet. - Continue present medications. - Await pathology results. - Repeat upper endoscopy to evaluate the response to therapy. - Metoclopramide 10 mg IV every 6 hours to increase gastric motility - Azithromycin 1 g IV to increase small bowel motility -,Patient may need a stent bridging the pylorus - Consider NG tube with gastric lavage to flush the fluid out of his stomach My findings are described in the full procedure note, which is enclosed. If I can be of further assistance, please feel free to contact me at . Sincerely, Jonathan Martinez, 03/17/2025 1:27:51 PM This report has been signed electronically.
--- NOTE | 2025-03-17 13:39 | PCM.POST.ANE ---
Anesthesia: Postop Eval I Current Vital Signs Temperature: 97.3 F Pulse Rate: 97 Blood Pressure: 110/74 Respiratory Rate: 18 Pulse Ox: 93 Oxygen Delivery Method: Nasal Cannula Oxygen Flow Rate (L/min): 2 Assessment Airway patent: Yes Spontaneous unlabored respirations: Yes Mental status: Awake and Calm nausea: Yes Vomiting: Yes Anesthesia Complication: Yes Anesthesia Complication Comment:: emesis upon emergence, suctioned,. lungs CTA Fluid Hydration Crystalloid volume administer (ml): 300 Total IV fluid infused: 300 Progress Note Anesthesia document: Postop Eval 1 completed: Yes
--- NOTE | 2025-03-17 14:57 | PCM.POSTANE2 ---
Anesthesia Postop Eval I Sum Postop Eval Completion status Anesthesia document: Postop Eval 1 completed: Yes Anesthesia Postop Eval I Summary Anesthesia Postop Eval I Summary: Anesthesia Postop Eval I: Assessment Summary Airway patent Yes 03/17/25 13:42 [email or web address] Spontaneous unlabored Yes 03/17/25 13:42 [email or web address] respirations Mental status Awake,Calm 03/17/25 13:42 [email or web address] nausea Yes 03/17/25 13:42 [email or web address] Vomiting Yes 03/17/25 13:42 [email or web address] Anesthesia Postop Eval I: Fluid Summary Crystalloid volume administer 300 03/17/25 13:44 [email or web address] (ml) Colloids volume administered ( ml) Blood Product volume administered (ml) Total IV fluid infused 300 03/17/25 13:44 [email or web address] Anesthesia Postop Eval I: Summary Notes Anesthesia Complication Yes 03/17/25 13:42 [email or web address] Anesthesia Complication emesis upon 03/17/25 13:44 [email or web address] Comment: emergence, suctioned,. lungs CTA Post-operative progress note Anesthesia: Postop Eval II Evaluation Mental status: Awake Pain Level: 0 nausea: No Vomiting: No
--- NOTE | 2025-03-17 16:15 | CASEMGMT ---
RN?CM?GRINDING AND SPRAYING SUPERVISOR?CM?to room to meet with patient for initial transition planning/care coordination?assessment.?RN?CM?introduced self and role at [facility].? Pt voices understanding and consents to?assessment?at this time.? Pt resting in bed in no distress at this time.? Pt is A/O at this time and answers all questions appropriately.?? Care providers, pharmacy, and demographics verified/updated at this time. Strata: 1 PCP: Dr Dos Santos Specialists: Gabriella Alves, TUBE REPAIRER- endocrinology Preferred Pharmacy: [facility] @ [address] Insurance:[employer] Prescription Benefit:?Yes LNOK: , Ade Living Arrangements: Lives w/ and 13-yr-old dtr in 2-story home w/3 steps to enter. Denies difficulty w/stairs. Independent. Transportation:?Pt states drives self and states no transportation concerns at this time.? also drives. DME: ? States has the following DME:?Has a functioning CGM. Is out of sensors, but checked on-line while RN CM @ bedside and states there are 2 refills remaining and states he can take care of this. He also has a pulse ox. Pt states no need for further DME at this time.? No home O2. If O2 is needed, he has used [employer] in the past and wishes to use them again. HHC/SNF: No hx. Pt wishes to return home and states has no concerns with going home at time of discharge.? ?CM?to follow for home oxygen needs and any further discharge planning/needs.? Pt voices no further concerns/needs at this time.? Advised pt to ask for?CM?if any further questions/concerns/needs arise.? Voices understanding. PLAN:??Home. Follow for possible home O2. Dayami THORNTONN?RN?CM
[2025-03-17 16:44] LABS: Bedside Glucose 185 mg/dL (74-106)
[2025-03-17] MEDS: Insulin Lispro 100 UNIT/ML INSULN.PEN SC ×2 (16:50→22:03)
--- NOTE | 2025-03-17 19:08 | PCM.PN.BLA ---
Progress Note Patient underwent an upper endoscopy today. He was discovered to have large gastric ulcerated antrum, prepyloric region and incisor region. Frozen specimen was positive for adenocarcinoma. I explained this to the patient and the patient's family at the bedside. He was also discovered to have elements of gastric outlet obstruction with a large amount of food in the stomach. Physical Exam Const alert, oriented x3, no apparent distress and healthy appearing General Appearance: cooperative GI normal to inspection, nondistended, normoactive bowel sounds, soft to palpation, non-tender and non-distended Percussion: normal to percussion Rectal Exam: deferred Assessment & Plan Assessment/Plan (1) Gastric mass: (2) Symptomatic anemia: (3) Weight loss: (4) Microcytic anemia: PLAN: Plan This is a very pleasant 49-year-old gentleman with recent onset of abdominal pain and discovered to have severe microcytic anemia - CT of the abdomen and pelvis shows gastric outlet obstruction with probable mass and metastatic disease - Will perform an upper endoscopy to evaluate his upper GI tract for iron deficiency anemia and abnormal CT scan. He was explained alternatives, risk and benefits include not withstanding bleeding, infection, sepsis, perforation, need emergent . He will have an ASA of 3. 03/17/2025-I will start him on IV Reglan, IV azithromycin. I will also hold his nightly Zyprexa to sleep due to interaction with Reglan. Being that he has severe gastroparesis with signs and symptoms of gastric outlet obstruction. I think most of his medications will do better if given IV at this time. Visit Charges Inpatient E&M: 99095 [facility] Hosp L3
--- NOTE | 2025-03-17 19:24 | PCM.PN.HOSP ---
Reason for Visit Reason for Visit: Diagnoses Iron deficiency anemia, unspecified (03/16/25) Anemia, unspecified (03/16/25) Other diseases of stomach and duodenum (03/16/25) Abnormal weight loss (03/16/25) Subjective Subjective Patient was seen and examined today, I talked with gastroenterology about his care, I contacted oncology today due to the fact the biopsy from the patient's EGD today showed adenocarcinoma. Dr. Chandra stated that he would need a PET scan as an outpatient and that he would have his office contact the patient tomorrow to set up an appointment. Objective Data Objective Data Vital Signs: Vital Signs Temp Pulse Resp BP Pulse Ox O2 Del Method O2 Flow Rate 97.4 F L 85 18 120/77 93 Nasal Cannula 2 03/17/25 14:39 03/17/25 14:39 03/17/25 14:39 03/17/25 14:39 03/17/25 14:39 03/17/25 16:00 03/17/25 16:00 Oxygen Flow Rate (L/min) 2 Oxygen Delivery Method Nasal Cannula Weight: 122.47 kg Body Mass Index (BMI) 34.7 Intake & Output: Intake and Output for Last 24 Hours 03/15/25 03/16/25 03/17/25 23:59 23:59 23:59 Intake Total 1255.17 / 1255.17 Output Total / Balance 1253.17 / 1253.17 Lab / Micro Data 03/17/25 10:20 03/17/25 04:09 Labs: Laboratory Results - last 24 hr 03/16/25 12:29: Hemoglobin A1c 8.4 H 03/16/25 13:12: Crossmatch See Detail 03/16/25 21:57: Hgb 7.9 L, Hct 25.3 L 03/16/25 22:41: POC Glucose 177 H 03/17/25 04:09: WBC 8.5, RBC 2.99 L, Hgb 7.2 L, Hct 23.0 L, MCV 76.9 L, MCH 24.1 L, MCHC 31.3 L D, RDW Std Deviation 41.2, RDW Coeff of Katie 15.1 H, Plt Count 363, MPV 11.4, Immature Gran % (Auto) 0.500, Neut % (Auto) 59.6, Lymph % (Auto) 29.1, [place] % (Auto) 7.5, Eos % (Auto) 2.6, Baso % (Auto) 0.7, Absolute Neuts (auto) 5.1, Absolute Lymphs (auto) 2.47, Nucleated RBC % 0.2, Sodium 138, Potassium 3.8, Chloride 105, Carbon Dioxide 22.6, Anion Gap 10, BUN 9, Creatinine 0.72, Estim Creat Clear Calc 170.67, Est GFR (MDRD) Non-Af 111, BUN/Creatinine Ratio 12.4, Glucose 181 H, Calcium 8.6, Phosphorus 3.9, Magnesium 2.2 03/17/25 10:20: Hgb 7.6 L, Hct 24.1 L 03/17/25 12:26: POC Glucose 179 H 03/17/25 16:26: POC Glucose 185 H Micro: Microbiology 03/16/25 13:16 Stool Stool Occult Blood (YASMINE) - Final Physical Exam Const alert, oriented x3 and no apparent distress General Appearance: cooperative, well kempt and well developed Orientation / Consciousness: awake, oriented to person, oriented to place and oriented to time HEENT normocephalic, head/scalp atraumatic and moist oral mucous membranes Eyes PERRL, EOMs intact bilaterally and conjunctivae normal Neck supple, no JVD, thyroid normal and no carotid bruits General: trachea midline Resp normal respiratory effort, no retractions, no use of accessory muscles and clear to auscultation bilaterally Auscultation: Negative for rales, rhonchi or wheezes Cardio regular rate, regular rhythm, no murmurs, no rub and no gallops GI normal to inspection, nondistended, normoactive bowel sounds, soft to palpation, non-tender and non-distended Extremity no clubbing, cyanosis or edema Skin no rashes or lesions noted General Skin Exam: no breakdown Neuro oriented x3, CN's II-XII intact bilaterally, no focal motor deficits and no sensory deficits noted Sensorium / Orientation: awake and alert Speech: speech normal Psych affect normal Assessment & Plan Assessment/Plan (1) Anemia: PLAN: Plan 1. 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 #2 adenocarcinoma of the stomach-patient will follow-up with oncology #3 hyperlipidemia-patient is on Lipitor #4 type 2 diabetes-patient is currently on sliding scale insulin #5 chronic depression-patient is on Cymbalta Total clinical time spent by myself addressing patient's medical issues, reviewing all of his data, and collaborating with patient's care team: 35-minute Charges/Coding Visit Charges Inpatient E&M: 00994 Subs Hosp L2
[2025-03-17] MEDS: 0.9% Saline Lock 10 ML Syringe IV (21:43)
[2025-03-17] MEDS: Doxepin Hydrochloride 10 MG Capsule PO (21:46)
[2025-03-17] MEDS: busPIRone 15 MG TABLET PO (21:46)
[2025-03-17] MEDS: Azithromycin 500 MG in 0.9% Normal Saline (250mL Bag) 250 ML 255 MG IV (21:59)
[2025-03-17] MEDS: MELATONIN 3 MG TABLET PO (21:59)
[2025-03-17 22:59] LABS: Bedside Glucose 185 mg/dL (74-106)
[2025-03-17] MEDS: Metoclopramide 10 MG/2 ML Vial IV (23:31)
[2025-03-18] VITALS (16 sets, daily range): BP systolic 97–137; BP diastolic 61–88; PULSE 72–87; RESP 16–18; TEMP 36.6–37.3; O2SAT 92–98
[2025-03-18] MEDS: Pantoprazole Sodium 80 MG in 0.9% Normal Saline (100mL Bag) 80 ML 10 MG CONT INF ×2 (04:16→16:21)
[2025-03-18] MEDS: Metoclopramide 10 MG/2 ML Vial IV ×3 (06:29→17:02)
[2025-03-18] MEDS: Insulin Lispro 100 UNIT/ML INSULN.PEN SC ×4 (06:38→21:21)
[2025-03-18 07:16] LABS: Bedside Glucose 171 mg/dL (74-106)
[2025-03-18 07:19] LABS: Hematocrit 22.7 % (40-54)
[2025-03-18] MEDS: Sodium Ferric Gluconat/Sucrose 250 MG in 0.9% Normal Saline (250mL Bag) 250 ML 135 MG IV (09:53)
[2025-03-18] MEDS: busPIRone 15 MG TABLET PO ×2 (09:57→21:21)
[2025-03-18] MEDS: DULoxetine Hcl 60 MG Capsule PO (09:57)
[2025-03-18] MEDS: Multivitamins,Therapeutic Tablet 1 TABLET PO (09:57)
[2025-03-18] MEDS: Atorvastatin Calcium 80 MG Tablet PO (09:58)
[2025-03-18] MEDS: Fenofibrate 48 MG Tablet PO (09:58)
[2025-03-18 12:06] LABS: Bedside Glucose 169 mg/dL (74-106)
[2025-03-18] MEDS: Ensure Plus High Protein 120 ML LIQUID PO ×2 (12:16→17:01)
[2025-03-18] MEDS: 0.9% Saline Lock 10 ML Syringe IV ×2 (12:16→17:02)
[2025-03-18 17:13] LABS: Bedside Glucose 158 mg/dL (74-106)
--- NOTE | 2025-03-18 18:53 | PCM.PN.HOSP ---
Reason for Visit Reason for Visit: Diagnoses Iron deficiency anemia, unspecified (03/16/25) Anemia, unspecified (03/16/25) Other diseases of stomach and duodenum (03/16/25) Abnormal weight loss (03/16/25) Subjective Subjective Patient was seen and examined today, I talked at length with his family including his about his gastric cancer and stated that he would most probably receive chemotherapy, possibly immunotherapy, and possibly radiation. I told him I did not think he was a surgical candidate and that there was some indication on his imaging studies that he had bony mets. It appears that Dr. Chandra's office contacted him today after coming over from the office and told him to call the office for an appointment and they would work him in next Monday. I told the patient and his family that he would need to get a repeat CBC performed on Monday if he is discharged tomorrow. I gave the patient 2 units of blood today and will check his CBC tomorrow, he will be undergoing another EGD tomorrow and possibly get a stent placed in the pylorus. Objective Data Objective Data Vital Signs: Vital Signs Temp Pulse Resp BP Pulse Ox O2 Del Method O2 Flow Rate 98.8 F 79 18 123/76 H 97 Nasal Cannula 2 03/18/25 18:47 03/18/25 18:47 03/18/25 18:47 03/18/25 18:47 03/18/25 18:47 03/18/25 18:47 03/18/25 18:47 Oxygen Flow Rate (L/min) 2 Oxygen Delivery Method Nasal Cannula Weight: 122.47 kg Body Mass Index (BMI) 34.7 Intake & Output: Intake and Output for Last 24 Hours 03/16/25 03/17/25 03/18/25 23:59 23:59 23:59 Intake Total 1510.17 / 1510.17 1821819 Output Total Balance 1508.17 / 1508.17 1819 Lab / Micro Data 03/18/25 06:33 03/17/25 04:09 Labs: Laboratory Results - last 24 hr 03/16/25 13:12: Crossmatch See Detail 03/17/25 22:02: POC Glucose 185 H 03/18/25 06:33: Hgb 7.0 L, Hct 22.7 L 03/18/25 06:37: POC Glucose 171 H 03/18/25 11:45: POC Glucose 169 H 03/18/25 16:53: POC Glucose 158 H Micro: Microbiology 03/16/25 13:16 Stool Stool Occult Blood (YASMINE) - Final Physical Exam Narrative alert, oriented x3 and no apparent distress General Appearance: cooperative, well kempt and well developed Orientation / Consciousness: awake, oriented to person, oriented to place and oriented to time HEENT normocephalic, head/scalp atraumatic and moist oral mucous membranes Eyes PERRL, EOMs intact bilaterally and conjunctivae normal Neck supple, no JVD, thyroid normal and no carotid bruits General: trachea midline Resp normal respiratory effort, no retractions, no use of accessory muscles and clear to auscultation bilaterally Auscultation: Negative for rales, rhonchi or wheezes Cardio regular rate, regular rhythm, no murmurs, no rub and no gallops GI normal to inspection, nondistended, normoactive bowel sounds, soft to palpation, non-tender and non-distended Extremity no clubbing, cyanosis or edema Skin no rashes or lesions noted General Skin Exam: no breakdown Neuro oriented x3, CN's II-XII intact bilaterally, no focal motor deficits and no sensory deficits noted Sensorium / Orientation: awake and alert Speech: speech normal Psych affect normal Assessment & Plan Assessment/Plan (1) Symptomatic anemia: (2) Anemia: PLAN: Plan 1. 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-patient will be transfused 2 units of packed red blood cells and CBC will be rechecked tomorrow #2 adenocarcinoma of the stomach-patient will follow-up with oncology next week, he will be scheduled for a PET scan, patient will undergo an EGD tomorrow with possible stent placement in the pylorus #3 hyperlipidemia-patient is on Lipitor #4 type 2 diabetes-patient is currently on sliding scale insulin #5 chronic depression-patient is on Cymbalta Total clinical time spent by myself addressing patient's medical issues, reviewing all of his data, and collaborating with patient's care team: 35-minute Charges/Coding Visit Charges Inpatient E&M: 28018 Subs Hosp L2
[2025-03-18] MEDS: Doxepin Hydrochloride 10 MG Capsule PO (21:21)
[2025-03-18] MEDS: Azithromycin 500 MG in 0.9% Normal Saline (250mL Bag) 250 ML 255 MG IV (22:18)
[2025-03-18] MEDS: MELATONIN 3 MG TABLET PO (22:19)
[2025-03-19] VITALS (11 sets, daily range): BP systolic 106–146; BP diastolic 73–96; PULSE 84–107; RESP 16–18; TEMP 36.9–37.6; O2SAT 92–98
[2025-03-19 00:22] LABS: Bedside Glucose 169 mg/dL (74-106)
[2025-03-19] MEDS: Metoclopramide 10 MG/2 ML Vial IV ×2 (02:50→12:28)
[2025-03-19] MEDS: Pantoprazole Sodium 80 MG in 0.9% Normal Saline (100mL Bag) 80 ML 10 MG CONT INF ×2 (02:51→13:34)
[2025-03-19] MEDS: Acetaminophen 325 MG Tablet 650 MG PO (03:04)
[2025-03-19 05:39] LABS: Absolute Lymphocyte Count 2.08 X10^3/uL (0.83-4.51); Absolute Neutrophil Count 6.7 X10^3/uL (2.0-7.7); Basophil# 0.05 X10^3/uL; Basophil% 0.5 % (0-1); Hematocrit 27.9 % (40-54); Hemoglobin 8.9 g/dL (13.0-16.5); Lymphocyte # 2.08 X10^3/ul (0.83-4.51); Lymphocyte % 21.2 % (19-41); Mean Corp Hgb Conc 31.9 g/dL (32-36); Mean Corpuscular Hgb 25.3 pg (27.0-32.0); Mean Corpuscular Volume 79.3 fL (80-94); Monocyte# 0.67 X10^3/uL; Monocyte% 6.8 % (0-10); NRBC Flagged by Analyzer 0.3 % (0-5); Neutrophil # 6.74 X10^3/uL (2.7-7.7); Neutrophil % 68.9 % (47-70); Platelet Count 367 K/mm3 (150-450); RBC Distribution Width CV 16.6 % (11.6-14.6); RBC Distribution Width SD 44.8 fl (35.1-43.9); Red Blood Count 3.52 M/mm3 (4.6-6.2); White Blood Count 9.8 K/mm3 (4.4-11.0)
[2025-03-19 07:17] LABS: Bedside Glucose 184 mg/dL (74-106)
[2025-03-19] MEDS: 0.9% Saline Lock 10 ML Syringe IV ×2 (09:52→12:28)
[2025-03-19] MEDS: Ondansetron 4 MG/2 ML Vial IV (09:52)
[2025-03-19] MEDS: busPIRone 15 MG TABLET PO ×2 (11:22→21:39)
[2025-03-19] MEDS: DULoxetine Hcl 60 MG Capsule PO (11:22)
--- NOTE | 2025-03-19 12:24 | CT_ITS ---
PROCEDURE: ABDOMEN/PELVIS WITH CONTRAST 03/19/2025 REASON FOR EXAM: GASTRIC CANCER, RETAINED STOMACH CONTENTS Rectal abscesses. TECHNIQUE: Abdomen and pelvis CT with intravenous contrast. Coronal and Sagittal reconstruction series were provided. PATIENT PREPARATION: Per protocol ORAL CONTRAST TYPE: None. CONTRAST: Isovue-300 VOLUME: 100 mL One or more dose reduction techniques were used (e.g., Automated exposure control, adjustment of the mA and/or kV according to patient size, use of iterative reconstruction technique. RADIATION DOSE SUMMARY: CTDlvol: 17 mGy DLP: 1560.62 mGycm COMPARISON: Prior study dated March 16, 2025. FINDINGS: Lung bases: Mild bibasilar atelectasis and minimal bilateral pleural effusions. Stable 4 mm nodule in the right lower lobe. Liver: Diffuse fatty infiltration. Gallbladder: Unremarkable Spleen: Normal size. Pancreas: Diffuse fatty atrophy. Adrenals: Unremarkable Kidneys: Normal renal sizes. No hydronephrosis. 1.4 cm cyst in the midportion of the left kidney. Bladder: Unremarkable Reproductive Organs: Bowel: Distended stomach with retained food particles. Diffuse thickening of the distal portion of the antrum of the stomach and region of the pylorus. Small lymph nodes are seen in the surrounding peritoneal fat. Sigmoid diverticulosis. Appendix: Lymph nodes: Vasculature: Mild diffuse atherosclerotic calcifications are noted. Peritoneum / Retroperitoneum: Mild thickening of the right anterior perirenal fascia with a small amount of fluid. Small amount of free fluid is seen in the pelvis in keeping with the minimal ascites. Stable stranding in the omental fat in the right upper quadrant. Stable small benign-appearing retroperitoneal lymph nodes. Early omental metastasis should be ruled out. Bones: Small sclerotic lesion seen in the right iliac bone. Focal sclerosis seen in the anterior aspect of the right superior pubic ramus. CT/Abdomen/Pelvis WITH Contrast IMPRESSION: Stable examination. Findings suggestive of distal gastric carcinoma with the o mental metastasis. Diffuse fatty infiltration of the liver. Small amount of free fluid in the pelvis. Reading Location: [place] [id number]
[2025-03-19] MEDS: Lorazepam 2 MG/ML WCH Syringe IV (12:28)
[2025-03-19 12:37] LABS: Bedside Glucose 186 mg/dL (74-106)
[2025-03-19 16:25] LABS: Bedside Glucose 180 mg/dL (74-106)
[2025-03-19] MEDS: Lactated Ringers 1,000 ML 15 ML IV (16:43)
--- NOTE | 2025-03-19 16:48 | PCM.PRE.AN2 ---
ASA Classification* ASA Classification ASA Classification: 3 Assessment & Plan Anesthesia* Anesthesia Assessment Anesthesia Assessment: Discussed sedation and/or anesthesia options, risks, benefits, and alternatives with patient/parents/legal guardian/POA. Questions invited. The patient/parents/legal guardian/POA seems to understand and agrees to proceed with anesthesia plan. Reviewed the physical assessment, medical history, allergy history and patient home medications list prior to surgery/procedure/anesthetic and documented any changes. Performed airway and anesthesia risk assessments. Anesthesia Type Anesthesia Type: MAC Anesthesia Focused Assessment* Temperature: 99.6 F Pulse Rate: 103 Blood Pressure: 106/73 Respiratory Rate: 18 Pulse Ox: 98 Oxygen Flow Rate (L/min): 2 Airway Assessment Mouth opens: >3 cm Mallampati Score: II Labs Anesthesia Preop lab: CBC WBC 9.8 K/mm3 (4.4-11.0) 03/19/25 05:03/19/25 RBC 3.52 M/mm3 (4.6-6.2) L 03/19/25 05:03/19/25 Hgb 8.9 g/dL (13.0-16.5) L 03/19/25 05:21 03/19/25 Hct 27.9 % (40-54) L 03/19/25 05:03/19/25 Plt Count 367 K/mm3 (150-450) 03/19/25 05:21 03/19/25 CHEMISTRY Potassium 3.8 mmol/L (3.3-5.1) 03/17/25 04:09 03/17/25 Sodium 138 mmol/L (133-145) 03/17/25 04:09 03/17/25 Magnesium 2.2 mg/dL (1.5-2.2) 03/17/25 04:09 03/17/25 Phosphorus 3.9 mg/dL (2.7-4.5) 03/17/25 04:09 03/17/25 BUN 9 mg/dL (4-19) 03/17/25 04:03/17/25 Creatinine 0.72 mg/dL (0.70-1.20) 03/17/25 04:09 03/17/25 Glucose 181 mg/dL (70-99) H 03/17/25 04:09 03/17/25 POC Glucose 180 mg/dL (74-106) H 03/19/25 15:57 03/19/25 COAG PT 12.8 SECONDS (11.7-14.9) 10/22/18 05:05 10/22/18 Pre-Assessment Diagnosis/Proposed Procedure Planned Operative Procedure(s): EGD Anesthesia History 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 When Was Last Pacemaker Check QUESTION #4 FULL TEXT: You/Your Family Experience fever (hyperthermia) with Anesthesia Last Oral Intake Last Oral intake: Last Oral Intake NPO since Meds taken in AM with sips of water? 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 Has anyone observed you stop breathing during sleep? STOP Results Positive 03/17/25 13:30 QUESTION #5 FULL TEXT : Do you snore loudly (louder than talking or can be heard through closed doors)? 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 Specify any problems Hx of Preganancy in last 3 N/A 03/16/25 15:56 Months Nurse Filling Out Transfusion NMARTY 03/16/25 15:56 & Questions: Date: 03/16/25 03/16/25 15:56 Time: 16:13 03/16/25 15:56 Patient unable to answer at this time (ie. confused, unrespo /Reproduction History /Reproductive History - carton making machinist: /Reproductive Hx- carton making machinist Hx Now Gestational Age (in weeks): EDC: Hx Hx Para Hx Section SAB No 04/14/23 16:13 Active Medications Active Medications: Current Medications Generic Name Dose Route Start Last Admin Trade Name Freq PRN Reason Stop Dose Admin Acetaminophen 650 mg 03/16/25 15:57 03/19/25 03:04 Acetaminophen 325 Mg Tablet PO 650 mg Q6H PRN PRN Administration Pain 1-10 Or Fever>100.7 Albuterol Sulfate 2.5 mg 03/16/25 15:57 Albuterol 2.5 Mg/3 Ml Vial.Neb. INHALATION Q2H PRN PRN SOB &/OR WHEEZING Atorvastatin Calcium 80 mg 03/17/25 10:00 03/19/25 11:39 Atorvastatin Calcium 80 Mg Tablet PO Not Given DAILY SIENA Buspirone HCl 15 mg 03/16/25 22:00 03/19/25 11:22 Buspirone 15 Mg Tablet PO 15 mg BID SIENA Administration Doxepin HCl 10 mg 03/16/25 22:00 03/18/25 21:21 Doxepin Hydrochloride 10 Mg Capsule PO 10 mg QHS SIENA Administration Duloxetine HCl 60 mg 03/17/25 10:00 03/19/25 11:22 Duloxetine Hcl 60 Mg Capsule PO 60 mg DAILY SIENA Administration Fenofibrate 48 mg 03/17/25 10:00 03/19/25 11:39 Fenofibrate 48 Mg Tablet PO Not Given DAILY SIENA Fluticasone Propionate 1 spray 03/16/25 15:57 Fluticasone 0.05% 1 [place] Nasal.Sry NASAL DAILY PRN allergic symptoms Sodium Chloride 250 mls @ 15 mls/hr 03/16/25 16:19 IV .[id number] PRN Saline Flush Sodium Chloride 250 mls @ 15 mls/hr 03/16/25 16:19 IV .[id number] PRN Additional IVPB Infusion Lactated Ringer's 1,000 mls @ 15 mls/hr 03/17/25 12:30 03/19/25 13:36 IV Infused .Q48H SIENA Infusion Azithromycin 500 mg/ Sodium 255 mls @ 255 mls/hr 03/17/25 20:00 03/18/25 23:27 Chloride IV Infused QHS SIENA Infusion Lactated Ringer's 1,000 mls @ 15 mls/hr 03/19/25 16:45 03/19/25 16:43 IV 15 mls/hr .Q48H SIENA Administration Insulin Human Lispro 0 unit 03/16/25 16:00 03/19/25 16:03 Insulin Lispro 100 Unit/Ml Insuln.Pen SC Not Given ACHS [facility] Protocol Melatonin 3 mg 03/16/25 15:57 03/18/25 22:19 Melatonin 3 Mg Tablet PO 3 mg QHS PRN PRN Administration INSOMNIA Metoclopramide HCl 10 mg 03/18/25 00:00 03/19/25 12:28 Metoclopramide 10 Mg/2 Ml Vial IV 10 mg Q6 SIENA Administration Multivitamins 1 tablet 03/17/25 08:00 03/19/25 08:39 Multivitamins,Therapeutic Tablet PO Not Given DAILYCM SIENA Nutritional Formula (Lactose Free) 120 ml 03/17/25 10:00 03/19/25 16:03 Ensure Plus High Protein 120 Ml Liquid PO Not Given 4X/DAY SIENA Olanzapine 5 mg 03/16/25 22:00 03/16/25 22:43 Olanzapine 5 Mg/Tab Tab.Rapdis PO 5 mg QHS SIENA Administration Protocol Ondansetron HCl 4 mg 03/16/25 15:57 03/19/25 09:52 Ondansetron 4 Mg/2 Ml Vial IV 4 mg Q8H PRN PRN Administration NAUSEA/VOMITING Pantoprazole Sodium 40 mg 03/20/25 10:00 Pantoprazole Sodium 40 Mg Tablet PO BID SIENA Senna/Docusate Sodium 2 tablet 03/16/25 15:57 Senna/Docusate Sodium 1 Tablet PO BID PRN PRN Constipation Sodium Chloride 10 - 40 ml 03/16/25 16:19 03/19/25 12:28 0.9% Saline Lock 10 Ml Syringe IV 10 ml UD PRN Administration SALINE FLUSH PFSH Medical History History of rectal abscess Multiple thyroid nodules Restrictive airway disease Abnormal chest CT Pneumonia Acute respiratory failure Shortness of breath Community acquired pneumonia Chronic headache Acute respiratory failure with hypoxia GERD (gastroesophageal reflux disease) Anxiety and depression Diabetes mellitus, type II Obesity (BMI 30-39.9) HLD (hyperlipidemia) MIKE (obstructive sleep apnea) Home Medications ?Medication ?Instructions ?Recorded ?Last Taken ?Type esomeprazole magnesium 40 mg 40 mg PO QHS gerd 10/10/17 03/15/25 22:00 History capsule,delayed release 40 mg fenofibrate 50 mg capsule 54 mg PO DAILY cholesterol 10/10/17 03/16/25 08:00 History 54 mg multivitamin 1 ea PO DAILY supplement 10/10/17 03/16/25 08:00 History 1 ea atorvastatin 20 mg tablet 20 mg PO DAILY high cholesterol 03/22/18 03/16/25 08:00 History 20 mg metformin 500 mg tablet 1,000 mg PO BID diabetes 03/22/18 03/16/25 08:00 History 1,000 mg doxepin 10 mg capsule 10 mg PO QHS insomnia 10/20/18 03/15/25 22:00 History 10 mg olanzapine 2.5 mg tablet 2.5 mg PO QHS insomnia 10/20/18 03/15/25 22:00 History 2.5 mg zonisamide 25 mg capsule 25 mg PO DAILY unknown 10/20/18 03/16/25 08:00 History 25 mg buspirone 15 mg tablet mg PO BID anxiety 04/14/23 03/16/25 08:00 History 15 mg duloxetine 60 mg capsule,delayed mg PO DAILY depression 04/14/23 03/16/25 08:00 History release 60 mg insulin lispro protamine-lispro subcut Type 2 DM 04/14/23 Unknown History 100 unit/mL (75-25) subcutaneous pen atorvastatin 80 mg tablet 80 mg PO DAILY hypercholestremia 03/16/25 Unknown History dexmethylphenidate 20 mg 20 mg PO DAILY on hold 03/16/25 Unknown History capsule,extended release [id number] Held on 03/16/25. Instructions: Order Changed duloxetine 30 mg capsule,delayed 30 mg PO DAILY depression 03/16/25 Unknown History release ferrous sulfate 325 mg (65 mg 325 mg PO BID anemia 03/16/25 Unknown History iron) tablet Allergy/AdvReac Type Severity Reaction Status Date / Time citalopram Allergy Unknown Unknown Verified 03/17/25 12:23 venlafaxine Allergy Unknown Unknown Verified 03/17/25 12:23 metoclopramide (From Reglan) Allergy weirds me Verified 03/17/25 12:23 out sertraline (From Zoloft) Allergy sexual Verified 03/17/25 12:23 side effects topiramate (From Topamax) Allergy Unknown Verified 03/17/25 12:23 Family History Father Colon cancer at age 53 Heart disease Myocardial infarction Surgical History Hx of drainage of abscess (~04/2023) Hx of appendectomy Hx of tonsillectomy Social History household members: spouse housing: house current occupational status: employed 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
--- NOTE | 2025-03-19 17:36 | PCM.PN.BLA ---
Progress Note Repeat CT scan still shows gastric outlet obstruction with a lot of food in the stomach. Physical Exam Const alert, oriented x3, no apparent distress and healthy appearing General Appearance: cooperative GI normal to inspection, nondistended, normoactive bowel sounds, soft to palpation, non-tender and non-distended Percussion: normal to percussion Rectal Exam: deferred Assessment & Plan Assessment/Plan (1) Carcinomatosis: (2) Cancer, metastatic to bone: (3) Gastric mass: (4) Anemia: (5) Symptomatic anemia: PLAN: Plan We will perform a repeat upper endoscopy to evaluate his upper GI tract and tried to place duodenal stent across the pylorus. He was explained alternatives, risk and benefits including missed any bleeding, infection, subsequent perforation, need for urgent . He will have an-ASA 3.. Visit Charges Inpatient E&M: 65463 Subs Hosp L2
--- NOTE | 2025-03-19 18:32 | OP.EGD_ITS ---
Patient Name: Jaswant Melendez Procedure Date: 03/19/2025 5:36 PM Date of : 1975 Age: 49 Procedure: Upper GI endoscopy Indications: Iron deficiency anemia, Peptic ulcer Providers: Jonathan Martinez DO Medicines: Monitored Anesthesia Care Patient Profile: This is a 49 year old male. Refer to note in patient chart for documentation of history and physical. Patient has symptoms of acute nausea, chronic regurgitation and acute vomiting. Complications: No immediate complications. Procedure: Pre-Anesthesia Assessment: - Prior to the procedure, a History and Physical was performed, and patient medications and allergies were reviewed. The patient is competent. The risks and benefits of the procedure and the sedation options and risks were discussed with the patient. All questions were answered and informed consent was obtained. Patient identification and proposed procedure were verified by the physician in the pre-procedure area. Mental Status Examination: alert and oriented. Airway Examination: normal oropharyngeal airway and neck mobility. Respiratory Examination: clear to auscultation. CV Examination: normal. ASA Grade Assessment: II - A patient with mild systemic disease. After reviewing the risks and benefits, the patient was deemed in satisfactory condition to undergo the procedure. The anesthesia plan was to use monitored anesthesia care (MAC). Immediately prior to administration of medications, the patient was re-assessed for adequacy to receive sedatives. The heart rate, respiratory rate, oxygen saturations, blood pressure, adequacy of pulmonary ventilation, and response to care were monitored throughout the procedure. The physical status of the patient was re-assessed after the procedure. After obtaining informed consent, the endoscope was passed under direct vision. Throughout the procedure, the patient's blood pressure, pulse, and oxygen saturations were monitored continuously. The Colonoscope was introduced through the mouth, and advanced to the pylorus. The upper GI endoscopy was accomplished without difficulty. The patient tolerated the procedure well. The patient tolerated the procedure poorly due to the patient's respiratory instability (pulmonary aspiration). Scope In: 6:10:10 PM Scope Out: 6:15:03 PM Total Procedure Duration Time 0 hours 4 minutes 53 seconds Findings: LA Grade D (one or more mucosal breaks involving at least 75% of esophageal circumference) esophagitis with no bleeding was found 20 to 40 cm from the incisors. A large amount of food (residue) was found in the entire examined stomach. Many oozing cratered gastric ulcers with pigmented material were found at the incisura, in the gastric antrum, in the prepyloric region of the stomach and at the pylorus. Impression: - LA Grade D reflux esophagitis with no bleeding. - A large amount of food (residue) in the stomach. - Oozing gastric ulcers with pigmented material. - No specimens collected. Recommendation: - Discharge patient to home. - NPO. - Continue present medications. Procedure Code(s): --- Professional --- 29475, 52, Esophagogastroduodenoscopy, flexible, transoral; diagnostic, including collection of specimen(s) by brushing or washing, when performed (separate procedure) CPT copyright 2021 [employer]. All rights reserved. The codes documented in this report are preliminary and upon narrow gauge engineer review may be revised to meet current compliance requirements. Jonathan Martinez DO 03/19/2025 6:32:02 PM This report has been signed electronically. Number of Addenda: 0 Note Initiated On: 03/19/2025 5:36 PM
--- NOTE | 2025-03-19 18:32 | OP.CCLET_ITS ---
03/19/2025 Humberto Dos Santos MD Re : Upper GI endoscopy procedure for Jaswant Crookpio Dear Dr. Dos Santos This procedure was performed on Wednesday, March 19, 2025. My impressions and recommendations are as follows: Impressions : - LA Grade D reflux esophagitis with no bleeding. - A large amount of food (residue) in the stomach. - Oozing gastric ulcers with pigmented material. - No specimens collected. Recommendations : - Discharge patient to home. - NPO. - Continue present medications. My findings are described in the full procedure note, which is enclosed. If I can be of further assistance, please feel free to contact me at . Sincerely, Jonathan Martinez, 03/19/2025 6:32:02 PM This report has been signed electronically.
--- NOTE | 2025-03-19 18:34 | PN.HOSP_ITS ---
Reason for Visit Reason for Visit: Diagnoses Secondary malignant neoplasm of bone (03/16/25) Disseminated malignant neoplasm, unspecified (03/16/25) Iron deficiency anemia, unspecified (03/16/25) Anemia, unspecified (03/16/25) Other diseases of stomach and duodenum (03/16/25) Abnormal weight loss (03/16/25) Subjective Subjective Patient was seen and examined today earlier, he was supposed to go down for an EGD today. He was nervous so I gave him some IV Ativan Objective Data Objective Data Vital Signs: Vital Signs Temp Pulse Resp BP Pulse Ox O2 Del Method O2 Flow Rate 99.6 F H 103 H 18 106/73 98 Nasal Cannula 2 03/19/25 16:49 03/19/25 16:49 03/19/25 16:49 03/19/25 16:49 03/19/25 16:49 03/19/25 14:40 03/19/25 16:49 Oxygen Flow Rate (L/min) 2 Oxygen Delivery Method Nasal Cannula Weight: 122.47 kg Body Mass Index (BMI) 34.7 Intake & Output: Intake and Output for Last 24 Hours 03/17/25 03/18/25 03/19/25 23:59 23:59 23:59 Intake Total 1510.17 / 1510.17 2875 / 2875 965.58 / 965.58 Output Total 800 / 800 Balance 1508.17 / 1508.17 2875 / 2875 165.58 / 165.58 Lab / Micro Data 03/19/25 05:21 03/17/25 04:09 Labs: Laboratory Results - last 24 hr 03/16/25 13:12: Crossmatch See Detail 03/18/25 21:20: POC Glucose 169 H 03/19/25 05:21: WBC 9.8, RBC 3.52 L, Hgb 8.9 L, Hct 27.9 L, MCV 79.3 L, MCH 25.3 L, MCHC 31.9 L, RDW Std Deviation 44.8 H, RDW Coeff of Katie 16.6 H, Plt Count 367, MPV 11.0, Immature Gran % (Auto) 0.600, Neut % (Auto) 68.9, Lymph % (Auto) 21.2, [place] % (Auto) 6.8, Eos % (Auto) 2.0, Baso % (Auto) 0.5, Absolute Neuts (auto) 6.7, Absolute Lymphs (auto) 2.08, Nucleated RBC % 0.3 03/19/25 06:44: POC Glucose 184 H 03/19/25 12:20: POC Glucose 186 H 03/19/25 15:57: POC Glucose 180 H Micro: Microbiology 03/16/25 13:16 Stool Stool Occult Blood (YASMINE) - Final Radiography Diagnostic Testing: Radiology Impression Abdomen/Pelvis CT 03/19/25 12:24 IMPRESSION: Stable examination. 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 Diffuse fatty infiltration of the liver. Small amount of free fluid in the pelvis. Reading Location: [place] [id number] Physical Exam Narrative alert, oriented x3 and no apparent distress General Appearance: cooperative, well kempt and well developed Orientation / Consciousness: awake, oriented to person, oriented to place and oriented to time HEENT normocephalic, head/scalp atraumatic and moist oral mucous membranes Eyes PERRL, EOMs intact bilaterally and conjunctivae normal Neck supple, no JVD, thyroid normal and no carotid bruits General: trachea midline Resp normal respiratory effort, no retractions, no use of accessory muscles and clear to auscultation bilaterally Auscultation: Negative for rales, rhonchi or wheezes Cardio regular rate, regular rhythm, no murmurs, no rub and no gallops GI normal to inspection, nondistended, normoactive bowel sounds, soft to palpation, non-tender and non-distended Extremity no clubbing, cyanosis or edema Skin no rashes or lesions noted General Skin Exam: no breakdown Neuro oriented x3, CN's II-XII intact bilaterally, no focal motor deficits and no sensory deficits noted Sensorium / Orientation: awake and alert Speech: speech normal Psych affect normal Assessment & Plan Assessment/Plan (1) Gastric cancer: (2) Symptomatic anemia: (3) Anemia: PLAN: Plan 1. 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-requiring blood transfusion, patient's hemoglobin is stable at this time #2 adenocarcinoma of the stomach-gastroenterology requested I order the CT of the abdomen and pelvis to ascertain whether the patient had a large amount of food in the stomach, this was ordered today, depending on the results, patient may you will have an EGD today and stent placement #3 hyperlipidemia-patient is on Lipitor #4 type 2 diabetes-patient is currently on sliding scale insulin #5 chronic depression-patient is on Cymbalta Total clinical time spent by myself addressing patient's medical issues, reviewing all of his data, and collaborating with patient's care team: 35-minute Charges/Coding Visit Charges Inpatient E&M: 63236 Subs Hosp L2
--- NOTE | 2025-03-19 18:36 | PCM.POST.ANE ---
Anesthesia: Postop Eval I Current Vital Signs Temperature: 99 F Pulse Rate: 102 Blood Pressure: 135/84 Respiratory Rate: 16 Pulse Ox: 96 Oxygen Delivery Method: Nasal Cannula Oxygen Flow Rate (L/min): 3 Assessment Airway patent: Yes Spontaneous unlabored respirations: Yes Mental status: Awake nausea: No Vomiting: No Anesthesia Complication: Yes Anesthesia Complication Comment:: With insertion of endoscope. Patient began vomiting large amounts of what appeared to be food. Immediately suctioned. Patient was awake enough that he seemed to protect his own airway. After 5 minutes of suctioning and vomiting. Patient was awake with baseline sats. Decision was to cancel procedure due to risk of aspiration. He will be monitored overnight. If he does well with his oxygen saturation, can bring back tomorrow but will need full intubation and general anesthesia because of risk of aspiration. Dr. Martinez has discussed this with family and the hospitalist Dr. Darrick Badillo Fluid Hydration Crystalloid volume administer (ml): 50 Total IV fluid infused: 50 Progress Note Anesthesia document: Postop Eval 1 completed: Yes
--- NOTE | 2025-03-19 18:39 | PN.HOSP_ITS ---
Hospitalist Note Patient had a CT of the abdomen and pelvis today which showed the presence of some food in the stomach, due to concerns of gastric outlet obstruction, gastroenterology decided to attempt an endoscopy to see if a stent could be inserted to keep the pylorus open, patient had an episode of aspiration before the scope was completed and the scope attempt was stopped, patient is currently in PACU on 2 L of oxygen and does not appear to be in respiratory distress. He will return to [place] [id number] on continuous pulse ox, they will attempt another EGD t omorrow with the patient being intubated.
--- NOTE | 2025-03-19 18:39 | PCM.POSTANE2 ---
Anesthesia Postop Eval I Sum Postop Eval Completion status Anesthesia document: Postop Eval 1 completed: Yes Anesthesia Postop Eval I Summary Anesthesia Postop Eval I Summary: Anesthesia Postop Eval I: Assessment Summary Airway patent Yes 03/19/25 18:39 Spontaneous unlabored Yes 03/19/25 18:39 respirations Mental status Awake 03/19/25 18:39 nausea No 03/19/25 18:39 Vomiting No 03/19/25 18:39 Anesthesia Postop Eval I: Fluid Summary Crystalloid volume administer 50 03/19/25 18:39 (ml) Colloids volume administered ( ml) Blood Product volume administered (ml) Total IV fluid infused 50 03/19/25 18:39 Anesthesia Postop Eval I: Summary Notes Anesthesia Complication Yes 03/19/25 18:39 Anesthesia Complication With insertion of 03/19/25 18:39 Comment: endoscope. Patient began vomiting large amounts of what appeared to be food. Immediately suctioned. Patient was awake enough that he seemed to protect his own airway. After 5 minutes of suctioning and vomiting. Patient was awake with baseline sats. Decision was to cancel procedure due to risk of aspiration. He will be monitored overnight. If he does well with his oxygen saturation , can bring back tomorrow but will need full intubation and general anesthesia because of risk of aspiration. Dr Micky Martinez has discussed this with family and the hospitalist Dr Micky Badillo Post-operative progress note Anesthesia: Postop Eval II Evaluation Mental status: Awake and Calm Pain Level: 0 nausea: No Vomiting: No
--- NOTE | 2025-03-19 20:46 | RAD_ITS ---
PROCEDURE: CHEST 1 VIEW (PORTABLE) 03/19/2025 REASON FOR EXAM: ASPIRATION TECHNIQUE: Frontal view of the chest. COMPARISON: 03/16/2025. FINDINGS: The heart is normal in size. The mediastinum is normal in contour. The lungs are clear. No acute osseous abnormalities. RAD/Chest 1 View (Portable) IMPRESSION: No acute cardiopulmonary abnormalities. Reading Location: [place] [address]
[2025-03-19] MEDS: Azithromycin 500 MG in 0.9% Normal Saline (250mL Bag) 250 ML 255 MG IV (21:38)
[2025-03-19] MEDS: Lorazepam 2 MG/ML WCH Syringe 1 MG IV (21:38)
[2025-03-19] MEDS: Doxepin Hydrochloride 10 MG Capsule PO (21:39)
[2025-03-19 22:03] LABS: Bedside Glucose 182 mg/dL (74-106)
[2025-03-20] VITALS (14 sets, daily range): BP systolic 109–134; BP diastolic 57–90; PULSE 84–99; RESP 16–18; TEMP 36.6–37.4; O2SAT 92–100; BMI 34.7
[2025-03-20] MEDS: Metoclopramide 10 MG/2 ML Vial IV ×5 (00:07→23:02)
[2025-03-20] MEDS: 0.9% Saline Lock 10 ML Syringe IV ×5 (00:07→23:02)
[2025-03-20 06:26] LABS: Bedside Glucose 163 mg/dL (74-106)
[2025-03-20 11:25] LABS: Bedside Glucose 177 mg/dL (74-106)
--- NOTE | 2025-03-20 13:05 | NURSING ---
pt to surgery
--- NOTE | 2025-03-20 13:24 | PRE.ANES_ITS ---
ASA Classification* ASA Classification ASA Classification: 3 Assessment & Plan Anesthesia* Anesthesia Assessment Anesthesia Assessment: Discussed sedation and/or anesthesia options, risks, benefits, and alternatives with patient/parents/legal guardian/POA. Questions invited. The patient/parents/legal guardian/POA seems to understand and agrees to proceed with anesthesia plan. Reviewed the physical assessment, medical history, allergy history and patient home medications list prior to surgery/procedure/anesthetic and documented any changes. Performed airway and anesthesia risk assessments. Anesthesia Type Anesthesia Type: General (Needs ET due to possible stomach content from obstrution) Anesthesia Focused Assessment* Temperature: 98.4 F Pulse Rate: 84 Blood Pressure: 113/72 Respiratory Rate: 16 Pulse Ox: 92 Oxygen Flow Rate (L/min): 3 Airway Assessment Mouth opens: >3 cm Mallampati Score: II Labs Anesthesia Preop lab: CBC WBC 9.8 K/mm3 (4.4-11.0) 03/19/25 05:21 03/19/25 RBC 3.52 M/mm3 (4.6-6.2) L 03/19/25 05:21 03/19/25 Hgb 8.9 g/dL (13.0-16.5) L 03/19/25 05:21 03/19/25 Hct 27.9 % (40-54) L 03/19/25 05:21 03/19/25 Plt Count 367 K/mm3 (150-450) 03/19/25 05:21 03/19/25 CHEMISTRY Potassium 3.8 mmol/L (3.3-5.1) 03/17/25 04:09 03/17/25 Sodium 138 mmol/L (133-145) 03/17/25 04:09 03/17/25 Magnesium 2.2 mg/dL (1.5-2.2) 03/17/25 04:09 03/17/25 Phosphorus 3.9 mg/dL (2.7-4.5) 03/17/25 04:09 03/17/25 BUN 9 mg/dL (4-19) 03/17/25 04:09 03/17/25 Creatinine 0.72 mg/dL (0.70-1.20) 03/17/25 04:09 03/17/25 Glucose 181 mg/dL (70-99) H 03/17/25 04:09 03/17/25 POC Glucose 177 mg/dL (74-106) H 03/20/25 11:02 03/20/25 COAG PT 12.8 SECONDS (11.7-14.9) 10/22/18 05:05 Pre-Assessment Diagnosis/Proposed Procedure Planned Operative Procedure(s): EGD Stent placement duodenal Anesthesia History 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 When Was Last Pacemaker Check QUESTION #4 FULL TEXT: You/Your Family Experience fever (hyperthermia) with Anesthesia Last Oral Intake Last Oral intake: Last Oral Intake NPO since 00:00 03/20/25 08:30 Meds taken in AM with sips of water? Meds patient instructed to take am of surgery PONV PONV - security intelligence analyst: PONV - security intelligence analyst Female HX of Motion Sickness HX of N/V After Surgery Non-Smoker Duration of Surgery greater than 60 minutes Number of Risk Factors PONV Score Height & Weight Height & Weight: Anesthesia: Height & Weight Height 6 ft 2 in 03/20/25 13:19 Weight: 122.47 kg 03/20/25 13:19 Body Mass Index (BMI) 34.7 03/20/25 13:19 Respiratory Assessment Respiratory Assessment - security intelligence analyst: Respiratory Tract Infection Hx - security intelligence analyst Hx Respiratory Tract Infection No 04/14/23 16:13 STOP Sleep Apnea STOP Sleep Apnea - security intelligence analyst: STOP Sleep Apnea - security intelligence analyst Hx Hypertension Yes: recently pre htn 03/16/25 15:56 Hx Sleep Apnea Yes 03/16/25 15:56 CPAP No 03/17/25 13:30 BIPAP No 03/16/25 15:56 Do you snore loudly (louder than talking or can be heard Do you often feel tired/ fatigued/ sleepy during daytime? Has anyone observed you stop breathing during sleep? STOP Results Positive 03/17/25 13:30 QUESTION #5 FULL TEXT : Do you snore loudly (louder than talking or can be heard through closed doors)? 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 Specify any problems Hx of Preganancy in last 3 N/A 03/16/25 15:56 Months Nurse Filling Out Transfusion NMARTY 03/16/25 15:56 & Questions: Date: 03/16/25 03/16/25 15:56 Time: 16:13 03/16/25 15:56 Patient unable to answer at this time (ie. confused, unrespo /Reproduction History /Reproductive History - security intelligence analyst: /Reproductive Hx- security intelligence analyst Hx Now Gestational Age (in weeks): EDC: Hx Hx Para Hx Section SAB No 04/14/23 16:13 Active Medications Active Medications: Current Medications Generic Name Dose Route Start Last Admin Trade Name Freq PRN Reason Stop Dose Admin Acetaminophen 650 mg 03/16/25 15:57 03/19/25 03:04 Acetaminophen 325 Mg Tablet PO 650 mg Q6H PRN PRN Administration Pain 1-10 Or Fever>100.7 Albuterol Sulfate 2.5 mg 03/16/25 15:57 Albuterol 2.5 Mg/3 Ml Vial.Neb. INHALATION Q2H PRN PRN SOB &/OR WHEEZING Atorvastatin Calcium 80 mg 03/17/25 10:00 03/20/25 10:00 Atorvastatin Calcium 80 Mg Tablet PO Not Given DAILY SIENA Buspirone HCl 15 mg 03/16/25 22:00 03/20/25 10:00 Buspirone 15 Mg Tablet PO Not Given BID SIENA Doxepin HCl 10 mg 03/16/25 22:00 03/19/25 21:39 Doxepin Hydrochloride 10 Mg Capsule PO 10 mg QHS SIENA Administration Duloxetine HCl 60 mg 03/17/25 10:00 03/20/25 10:00 Duloxetine Hcl 60 Mg Capsule PO Not Given DAILY SIENA Fenofibrate 48 mg 03/17/25 10:00 03/20/25 10:00 Fenofibrate 48 Mg Tablet PO Not Given DAILY SIENA Fluticasone Propionate 1 spray 03/16/25 15:57 Fluticasone 0.05% 1 [place] Nasal.Sry NASAL DAILY PRN allergic symptoms Sodium Chloride 250 mls @ 15 mls/hr 03/16/25 16:19 IV .[id number] PRN Saline Flush Sodium Chloride 250 mls @ 15 mls/hr 03/16/25 16:19 IV .[id number] PRN Additional IVPB Infusion Lactated Ringer's 1,000 mls @ 15 mls/hr 03/17/25 12:30 03/19/25 13:36 IV Infused .Q48H SIENA Infusion Azithromycin 500 mg/ Sodium 255 mls @ 255 mls/hr 03/17/25 20:00 03/19/25 22:38 Chloride IV Infused QHS SIEAN Infusion Lactated Ringer's 1,000 mls @ 15 mls/hr 03/19/25 16:45 03/20/25 12:39 IV 0 mls/hr .Q48H SIENA Infusion Lactated Ringer's 1,000 mls @ 15 mls/hr 03/20/25 13:30 IV .Q48H SIENA Insulin Human Lispro 0 unit 03/16/25 16:00 03/20/25 12:12 Insulin Lispro 100 Unit/Ml Insuln.Pen SC Not Given ACHS SIENA Protocol Lorazepam 1 mg 03/19/25 20:40 03/19/25 21:38 Lorazepam 2 Mg/Ml h Syringe IV 1 mg Q8 PRN Administration ANXIETY Melatonin 3 mg 03/16/25 15:57 03/18/25 22:19 Melatonin 3 Mg Tablet PO 3 mg QHS PRN PRN Administration INSOMNIA Metoclopramide HCl 10 mg 03/18/25 00:00 03/20/25 12:19 Metoclopramide 10 Mg/2 Ml Vial IV 10 mg Q6 SIENA Administration Multivitamins 1 tablet 03/17/25 08:00 03/20/25 08:17 Multivitamins,Therapeutic Tablet PO Not Given DAILYCM [facility] Nutritional Formula (Lactose Free) 120 ml 03/17/25 10:00 03/20/25 08:17 Ensure Plus High Protein 120 Ml Liquid PO Not Given 4X/DAY SIENA Olanzapine 5 mg 03/16/25 22:00 03/16/25 22:43 Olanzapine 5 Mg/Tab Tab.Rapdis PO 5 mg QHS SIENA Administration Protocol Ondansetron HCl 4 mg 03/16/25 15:57 03/19/25 09:52 Ondansetron 4 Mg/2 Ml Vial IV 4 mg Q8H PRN PRN Administration NAUSEA/VOMITING Pantoprazole Sodium 40 mg 03/20/25 10:00 03/20/25 10:00 Pantoprazole Sodium 40 Mg Tablet PO Not Given BID [facility] Senna/Docusate Sodium 2 tablet 03/16/25 15:57 Senna/Docusate Sodium 1 Tablet PO BID PRN PRN Constipation Sodium Chloride 10 - 40 ml 03/16/25 16:19 03/20/25 00:07 0.9% Saline Lock 10 Ml Syringe IV 20 ml UD PRN Administration [facility] History History of rectal abscess Multiple thyroid nodules Restrictive airway disease Abnormal chest CT Pneumonia Acute respiratory failure Shortness of breath Community acquired pneumonia Chronic headache Acute respiratory failure with hypoxia GERD (gastroesophageal reflux disease) Anxiety and depression Diabetes mellitus, type II Obesity (BMI 30-39.9) HLD (hyperlipidemia) MIKE (obstructive sleep apnea) Home Medications ?Medication ?Instructions ?Recorded ?Last Taken ?Type esomeprazole magnesium 40 mg 40 mg PO QHS gerd 8 03/15/25 22:00 History capsule,delayed release 40 mg fenofibrate 50 mg capsule 54 mg PO DAILY cholesterol 0 10/10/17 03/16/25 08:00 History 54 mg multivitamin 1 ea PO DAILY supplement 11/2603/16/25 08:00 History 1 ea atorvastatin 20 mg tablet 20 mg PO DAILY high choleste rol 03/22/18 03/16/25 08:00 History 20 mg metformin 500 mg tablet 1,000 mg PO BID diabetes 03/16/25 08:00 History 1,000 mg doxepin 10 mg capsule 10 mg PO QHS insomnia 03/15/25 22:00 History 10 mg olanzapine 2.5 mg tablet 2.5 mg PO QHS insomnia 10/2003/15/25 22:00 History 2.5 mg zonisamide 25 mg capsule 25 mg PO DAILY unknown 10/2003/16/25 08:00 History 25 mg buspirone 15 mg tablet mg PO BID anxiety 04/14/23 0 03/16/25 08:00 History 15 mg duloxetine 60 mg capsule,delayed mg PO DAILY depressio n 04/14/23 03/16/25 08:00 History release 60 mg insulin lispro protamine-lispro subcut Type 2 DM 04/14 Unknown History 100 unit/mL (75-25) subcutaneous pen atorvastatin 80 mg tablet 80 mg PO DAILY hypercholestr emia 03/16/25 Unknown History dexmethylphenidate 20 mg 20 mg PO DAILY on hold 03/16 Unknown History capsule,extended release [id number] Held on 03/16/25. Instructions: Order Changed duloxetine 30 mg capsule,delayed 30 mg PO DAILY depres brittni 03/16/25 Unknown History release ferrous sulfate 325 mg (65 mg 325 mg PO BID anemia 06/02 Unknown History iron) tablet Allergy/AdvReac Type Severity Reaction Status Date / Time citalopram Allergy Unknown Unknown Verified 03/17/25 12:23 venlafaxine Allergy Unknown Unknown Verified 03/17/25 12:23 metoclopramide (From Reglan) Allergy weirds me Verified 03/17/25 12:23 out sertraline (From Zoloft) Allergy sexual Verified 03/17/25 12:23 side effects topiramate (From Topamax) Allergy Unknown Verified 03/17/25 12:23 Family History Father Colon cancer at age 53 Heart disease Myocardial infarction Surgical History Hx of drainage of abscess (~04/2023) Hx of appendectomy Hx of tonsillectomy Social History household members: spouse housing: house current occupational status: employed 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
[2025-03-20] MEDS: Lactated Ringers 1,000 ML 15 ML IV (13:26)
--- NOTE | 2025-03-20 14:19 | PCM.PN.BLA ---
Progress Note Patient has been NPO. He will undergo egd with attempted stent placement. Physical Exam Narrative alert, oriented x3 and no apparent distress General Appearance: cooperative, well kempt and well developed Orientation / Consciousness: awake, oriented to person, oriented to place and oriented to time HEENT normocephalic, head/scalp atraumatic and moist oral mucous membranes Eyes PERRL, EOMs intact bilaterally and conjunctivae normal Neck supple, no JVD, thyroid normal and no carotid bruits General: trachea midline Resp normal respiratory effort, no retractions, no use of accessory muscles and clear to auscultation bilaterally Auscultation: Negative for rales, rhonchi or wheezes Cardio regular rate, regular rhythm, no murmurs, no rub and no gallops GI normal to inspection, nondistended, normoactive bowel sounds, soft to palpation, non-tender and non-distended Extremity no clubbing, cyanosis or edema Skin no rashes or lesions noted General Skin Exam: no breakdown Neuro oriented x3, CN's II-XII intact bilaterally, no focal motor deficits and no sensory deficits noted Sensorium / Orientation: awake and alert Speech: speech normal Psych affect normal Assessment & Plan Assessment/Plan (1) Carcinomatosis: (2) Cancer, metastatic to bone: (3) Gastric mass: (4) Anemia: (5) Symptomatic anemia: PLAN: Plan We will perform a repeat upper endoscopy to evaluate his upper GI tract and tried to place duodenal stent across the pylorus. He was explained alternatives, risk and benefits including missed any bleeding, infection, subsequent perforation, need for urgent . He will have an-ASA 3.. Visit Charges Inpatient E&M: 86618 Subs Hosp L2
--- NOTE | 2025-03-20 14:37 | RAD_ITS ---
PROCEDURE: FLUOROSCOPY 1 HR OR LESS 03/20/2025 REASON FOR EXAM: EGD and duodenal stenting. TECHNIQUE: Intraoperative fluoroscopic services provided for duodenal stenting. 14.3 seconds of fluoroscopy. 6.69 mGy. 5 images were submitted. FINDINGS: Intraoperative imaging provided for duodenal stenting. RAD/Fluoroscopy 1 Hr or Less IMPRESSION: Intraoperative imaging provided for duodenal stenting. Reading Location: [facility]--1
--- NOTE | 2025-03-20 15:20 | PCM.POST.ANE ---
Anesthesia: Postop Eval I Current Vital Signs Temperature: 99.4 F Pulse Rate: 93 Blood Pressure: 125/86 Respiratory Rate: 18 Pulse Ox: 99 Assessment Airway patent: Yes Spontaneous unlabored respirations: Yes nausea: No Vomiting: No Anesthesia Complication: No Fluid Hydration Crystalloid volume administer (ml): 700 Total IV fluid infused: 700 Progress Note Anesthesia document: Postop Eval 1 completed: Yes
--- NOTE | 2025-03-20 15:53 | POSTOPAN2_ITS ---
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 Spontaneous unlabored Yes 03/20/25 15:20 SENIOR LEAD JAVA [email or web address].[email or web address] respirations Mental status Awake,Calm 03/19/25 18:39 nausea No 03/20/25 15:20 SENIOR LEAD JAVA DEVELOPER.[email or web address] Vomiting No 03/20/25 15:20 SENIOR LEAD JAVA [email or web address].[email or web address] Anesthesia Postop Eval I: Fluid Summary Crystalloid volume administer 700 03/20/25 15:20 SENIOR LEAD JAVA [email or web address].DMAY (ml) Colloids volume administered ( ml) Blood Product volume administered (ml) Total IV fluid infused 700 03/20/25 15:20 SENIOR LEAD JAVA [email or web address].[email or web address] Anesthesia Postop Eval I: Summary Notes Anesthesia Complication No 03/20/25 15:20 SENIOR LEAD JAVA [email or web address].[email or web address] Anesthesia Complication With insertion of 03/19/25 18:39 Comment: endoscope. Patient began vomiting large amounts of what appeared to be food. Immediately suctioned. Patient was awake enough that he seemed to protect his own airway. After 5 minutes of suctioning and vomiting. Patient was awake with baseline sats. Decision was to cancel procedure due to risk of aspiration. He will be monitored overnight. If he does well with his oxygen saturation , can bring back tomorrow but will need full intubation and general anesthesia because of risk of aspiration. Dr Micky Martinez has discussed this with family and the hospitalist Dr Micky Badillo Post-operative progress note Anesthesia: Postop Eval II Evaluation Mental status: Awake Pain Level: 0 nausea: No Vomiting: No
--- NOTE | 2025-03-20 15:53 | OP.EGD_ITS ---
Patient Name: Jaswant Melendez Procedure Date: 03/20/2025 2:20 PM Date of : 1975 Age: 49 Procedure: Upper GI endoscopy Indications: For dilation and stenting of pyloric stenosis Providers: Jonathan Martinez DO Medicines: Monitored Anesthesia Care Patient Profile: This is a 49 year old male. Refer to note in patient chart for documentation of history and physical. Patient has symptoms of acute abdominal cramping, acute abdominal distention, acute epigastric abdominal pain, acute dyspepsia, acute nausea and acute vomiting. Complications: No immediate complications. Procedure: Pre-Anesthesia Assessment: - Prior to the procedure, a History and Physical was performed, and patient medications and allergies were reviewed. The patient is competent. The risks and benefits of the procedure and the sedation options and risks were discussed with the patient. All questions were answered and informed consent was obtained. Patient identification and proposed procedure were verified by the nurse in the pre-procedure area. Mental Status Examination: alert and oriented. Airway Examination: normal oropharyngeal airway and neck mobility. Respiratory Examination: clear to auscultation. CV Examination: normal. ASA Grade Assessment: III - A patient with severe systemic disease. After reviewing the risks and benefits, the patient was deemed in satisfactory condition to undergo the procedure. The anesthesia plan was to use monitored anesthesia care (MAC). Immediately prior to administration of medications, the patient was re-assessed for adequacy to receive sedatives. The heart rate, respiratory rate, oxygen saturations, blood pressure, adequacy of pulmonary ventilation, and response to care were monitored throughout the procedure. The physical status of the patient was re-assessed after the procedure. After obtaining informed consent, the endoscope was passed under direct vision. Throughout the procedure, the patient's blood pressure, pulse, and oxygen saturations were monitored continuously. The Endoscope was introduced through the mouth, and advanced to the fourth part of the duodenum. Small bowel enteroscopy was deemed necessary. The upper GI endoscopy was accomplished without difficulty. The patient tolerated the procedure well. Scope In: 2:41:45 PM Scope Out: 3:06:11 PM Total Procedure Duration Time 0 hours 24 minutes 26 seconds Findings: LA Grade D (one or more mucosal breaks involving at least 75% of esophageal circumference) esophagitis with no bleeding was found 31 to 40 cm from the incisors. A large amount of food (residue) was found in the entire examined stomach. A malignant-appearing, intrinsic moderate stenosis was found in the gastric antrum, in the prepyloric region of the stomach and at the pylorus. This was traversed. This was stented with a 22 mm x 9 cm Evolution controlled-release uncovered stent. Estimated blood loss was minimal. No gross lesions were noted in the entire examined duodenum. For location marking, [Device] [MRI Compatibility]. [Clip Sliver Chopper]. [Bleeding?]. Impression: - LA Grade D erosive esophagitis with no bleeding. - A large amount of food (residue) in the stomach. - Gastric stenosis was found in the gastric antrum, in the prepyloric region of the stomach and at the pylorus. Prosthesis placed. - No gross lesions in the entire examined duodenum. - No specimens collected. Recommendation: - Discharge patient to home. - Resume previous diet. - Continue present medications. Procedure Code(s): --- Professional --- 17982, Small intestinal endoscopy, enteroscopy beyond second portion of duodenum, not including ileum; with transendoscopic stent placement (includes predilation) CPT copyright 2021 [employer]. All rights reserved. The codes documented in this report are preliminary and upon twist maker review may be revised to meet current compliance requirements. Jonathan Martinez DO 03/20/2025 3:53:23 PM This report has been signed electronically. Number of Addenda: 0 Note Initiated On: 03/20/2025 2:20 PM
--- NOTE | 2025-03-20 15:53 | OP.CCLET_ITS ---
03/20/2025 Humberto Dos Santos MD Re : Upper GI endoscopy procedure for Jaswant Crookpio Dear Dr. Dos Santos This procedure was performed on March. My impressions and recommendations are as follows: Impressions : - LA Grade D erosive esophagitis with no bleeding. - A large amount of food (residue) in the stomach. - Gastric stenosis was found in the gastric antrum, in the prepyloric region of the stomach and at the pylorus. Prosthesis placed. - No gross lesions in the entire examined duodenum. - No specimens collected. Recommendations : - Discharge patient to home. - Resume previous diet. - Continue present medications. My findings are described in the full procedure note, which is enclosed. If I can be of further assistance, please feel free to contact me at . Sincerely, Jonathan Martinez, 03/20/2025 3:53:23 PM This report has been signed electronically.
--- NOTE | 2025-03-20 15:54 | ANES.CONFIRM ---
Anesthesia: Confirm Documents Multiple Procedures on Account (2) Confirmed Documents: Yes
[2025-03-20] MEDS: proCHLORPERazine 10 MG/2 ML Vial IV (18:14)
--- NOTE | 2025-03-20 19:25 | PCM.PN.HOSP ---
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 Patient had a stent placed. He is currently on clear liquids. Family is in the room and I talked with him briefly. Objective Data Objective Data Vital Signs: Vital Signs Temp Pulse Resp BP Pulse Ox O2 Del Method O2 Flow Rate 99.4 F H 92 16 125/81 H 92 Room Air 3 03/20/25 18:19 03/20/25 18:19 03/20/25 18:19 03/20/25 18:19 03/20/25 18:19 03/20/25 18:19 03/20/25 16:19 Oxygen Flow Rate (L/min) 3 Oxygen Delivery Method Room Air Weight: 122.47 kg Body Mass Index (BMI) 34.7 Intake & Output: Intake and Output for Last 24 Hours 03/18/25 03/19/25 03/20/25 23:59 23:59 23:59 Intake Total 2875 / 2875 1220.58 / 1220.58 382.75 / 382.75 Output Total 800 / 800 4 / 4 Balance 2875 / 2875 420.58 / 420.58 378.75 / 378.75 Lab / Micro Data 03/21/25 05:33 03/17/25 04:09 Labs: Laboratory Results - last 24 hr 03/19/25 21:37: POC Glucose 182 H 03/20/25 06:04: POC Glucose 163 H 03/20/25 11:02: POC Glucose 177 H Micro: Microbiology 03/16/25 13:16 Stool Stool Occult Blood (YASMINE) - Final Radiography Diagnostic Testing: Radiology Impression Chest X-Ray 03/19/25 20:46 IMPRESSION: No acute cardiopulmonary abnormalities. Reading Location: [place] [address] Fluoroscopy 03/20/25 14:37 IMPRESSION: Intraoperative imaging provided for duodenal stenting. Reading Location: [place] [address] Physical Exam Narrative alert, oriented x3 and no apparent distress General Appearance: cooperative, well kempt and well developed Orientation / Consciousness: awake, oriented to person, oriented to place and oriented to time HEENT normocephalic, head/scalp atraumatic and moist oral mucous membranes Eyes PERRL, EOMs intact bilaterally and conjunctivae normal Neck supple, no JVD, thyroid normal and no carotid bruits General: trachea midline Resp normal respiratory effort, no retractions, no use of accessory muscles and clear to auscultation bilaterally Auscultation: Negative for rales, rhonchi or wheezes Cardio regular rate, regular rhythm, no murmurs, no rub and no gallops GI normal to inspection, nondistended, normoactive bowel sounds, soft to palpation, non-tender and non-distended Extremity no clubbing, cyanosis or edema Skin no rashes or lesions noted General Skin Exam: no breakdown Neuro oriented x3, CN's II-XII intact bilaterally, no focal motor deficits and no sensory deficits noted Sensorium / Orientation: awake and alert Speech: speech normal Psych affect normal Assessment & Plan Assessment/Plan (1) Gastric cancer: (2) Symptomatic anemia: (3) Anemia: PLAN: Plan 1. 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-requiring blood transfusion, patient's hemoglobin is stable at this time, patient will have a H&H tomorrow #2 adenocarcinoma of the stomach-gastroenterology placed a stent today, patient is still having nausea, he will remain on liquids today #3 hyperlipidemia-patient is on Lipitor #4 type 2 diabetes-patient is currently on sliding scale insulin #5 chronic depression-patient is on Cymbalta Total clinical time spent by myself addressing patient's medical issues, reviewing all of his data, and collaborating with patient's care team: 35-minute Charges/Coding Visit Charges Inpatient E&M: 86210 Subs Hosp L2
[2025-03-20] MEDS: Azithromycin 500 MG in 0.9% Normal Saline (250mL Bag) 250 ML 255 MG IV (21:12)
[2025-03-20] MEDS: Lorazepam 2 MG/ML WCH Syringe 1 MG IV (21:40)
[2025-03-20 22:02] LABS: Bedside Glucose 174 mg/dL (74-106)
[2025-03-20] MEDS: Scopolamine 1mg/72hr Patch 1 PATCH TD (22:09)
[2025-03-20] MEDS: Ondansetron 4 MG/2 ML Vial IV (22:09)
[2025-03-20] MEDS: Haloperidol Lactate 5 MG/ML Vial IM (22:10)
[2025-03-20] MEDS: DiphenhydrAMINE 50 MG/ML Syringe 25 MG IV (22:10)
[2025-03-21] MEDS: Ondansetron 4 MG/2 ML Vial IV (05:53)
[2025-03-21] MEDS: 0.9% Saline Lock 10 ML Syringe IV ×2 (05:53→11:12)
[2025-03-21] MEDS: Metoclopramide 10 MG/2 ML Vial IV (05:53)
[2025-03-21] MEDS: Lorazepam 2 MG/ML WCH Syringe 1 MG IV (05:53)
[2025-03-21 06:06] VITALS: BP 122/82; PULSE 90; RESP 16; TEMP 37.1; O2SAT 96
[2025-03-21 06:16] LABS: Hematocrit 29.1 % (40-54); Hemoglobin 9.4 g/dL (13.0-16.5)
[2025-03-21 06:54] LABS: Bedside Glucose 168 mg/dL (74-106)
[2025-03-21 09:31] VITALS: BP 134/83; PULSE 99; RESP 16; TEMP 36.7; O2SAT 97
[2025-03-21] MEDS: busPIRone 15 MG TABLET PO (09:36)
[2025-03-21] MEDS: DULoxetine Hcl 60 MG Capsule PO (09:36)
[2025-03-21] MEDS: Multivitamins,Therapeutic Tablet 1 TABLET PO (09:36)
[2025-03-21] MEDS: Pantoprazole Sodium 40 MG Tablet PO (09:37)
[2025-03-21] MEDS: Atorvastatin Calcium 80 MG Tablet PO (09:37)
[2025-03-21] MEDS: Fenofibrate 48 MG Tablet PO (09:38)
[2025-03-21] MEDS: Insulin Lispro 100 UNIT/ML INSULN.PEN SC (11:29)
[2025-03-21 12:06] LABS: Bedside Glucose 232 mg/dL (74-106)
--- NOTE | 2025-03-21 12:10 | DCINST_ITS ---
Discharge Instructions Diet Discharge Diet: - (Clear liquids today, advance diet tomorrow to your usual diet) DC O2, CPAP, BIPAP needs Home O2 Discharge instructions: No Dressing / Incision Discharge Activity: Return to Normal Activity Weight Bearing Status: Full weight bearing Follow Up Care Test Results: Test results from this visit will be discussed in further detail at your follow- up appointment, if applicable. Discharge Plan Admission Admit Date/Time: 03/16/25 14:55 Primary Reason for Your Visit: Gastric cancer, gastroparesis Attending Provider: Jacky Jaimes Primary Care Provider: Humberto Dos Santos Consulting Providers: Tia Bergman Discharge Orders/Prescriptions Prescriptions: New fluticasone propionate 50 mcg/actuation [place],Suspension 1 spray NASAL DAILY PRN (Reason: allergic symptoms) Qty: 0 0RF ondansetron HCl 8 mg tablet 8 mg PO Q6H PRN PRN (Reason: nausea and vomiting) Qty: 40 0RF metoclopramide HCl [Reglan] 10 mg tablet 10 mg PO TID Qty: 30 0RF azithromycin [Zithromax] 500 mg tablet 500 mg PO DAILY 8 Days Qty: 8 0RF Continued multivitamin 1 EACH tablet 1 ea PO DAILY esomeprazole magnesium 40 MG capsule 40 mg PO QHS fenofibrate 50 MG capsule 54 mg PO DAILY metformin 500 mg tablet 1,000 mg PO BID doxepin 10 MG capsule 10 mg PO QHS olanzapine 2.5 MG tablet 2.5 mg PO QHS zonisamide 25 MG capsule 25 mg PO DAILY buspirone 15 mg tablet PO BID Patient Comments: TAKE 1 TABLET BY MOUTH TWICE A DAY insulin lispro protamin-lispro 100 unit/mL (75-25) insulin pen SUBCUT duloxetine 60 mg capsule,delayed release(DR/EC) PO DAILY Patient Comments: TAKE 1 CAPSULE BY MOUTH ONCE DAILY atorvastatin 80 mg tablet 80 mg PO DAILY dexmethylphenidate 20 mg capsule,ER biphasic 50-50 20 mg PO DAILY duloxetine 30 mg capsule,delayed release(DR/EC) 30 mg PO DAILY ferrous sulfate 325 mg (65 mg iron) tablet 325 mg PO BID Discontinued atorvastatin 20 mg tablet 20 mg PO DAILY Other Ambulatory Orders: CBC W/Diff, Automated (Routine) Timeframe: 20250325 Facility: [facility] - Location: Laboratory Ordered By: Dr. Jacky Jaimes Referrals / Follow Up: Humberto Dos Santos MD [Primary Care Provider] - Cary Chandra MD [Med Staff - Active Staff] - See Referral Note (At your scheduled appointment time) Disposition Disposition (needs filled in before D/C Order can be placed): Home, Self Care
--- NOTE | 2025-03-21 12:34 | DS.PCM_ITS ---
Providers Date of Admission: 03/16/25 Date of Discharge: 03/21/25 Primary Care Physician: Dr. Humberto Dos Santos MD Consultations 03/16/25 15:57 Consult: Gastroenterology Routine Consulting Provider: [facility] Reason for Consult: GI bleed EMERGENT Consult: No MD Notified: Yes Date Notified: 03/16/25 Time Notified: 15:01 Method of Notification: ED Physician Initiated Reason For Visit: SEVERE ANEMIA Diagnosis Discharge Diagnosis (1) Gastric cancer: Status: Acute Code(s): C16.9 - Malignant neoplasm of stomach, unspecified (2) Symptomatic anemia: Status: Acute Code(s): D64.9 - Anemia, unspecified (3) Anemia: Status: Acute Code(s): D64.9 - Anemia, unspecified Plan 1. 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-gastroenterology placed a stent today, patient is still having nausea, he will remain on liquids today #3 hyperlipidemia-patient is on Lipitor #4 type 2 diabetes-patient is currently on sliding scale insulin #5 chronic depression-patient is on Cymbalta Total clinical time spent by myself addressing patient's medical issues, reviewing all of his data, and collaborating with patient's care team: 35-minute Medications at Discharge Home Medications esomeprazole magnesium 40 mg capsule,delayed release 40 mg PO QHS gerd 10/10/17 fenofibrate 50 mg capsule 54 mg PO DAILY cholesterol 10/10/17 multivitamin 1 ea PO DAILY supplement 10/10/17 metformin 500 mg tablet 1,000 mg PO BID diabetes 03/22/18 doxepin 10 mg capsule 10 mg PO QHS insomnia 10/20/18 olanzapine 2.5 mg tablet 2.5 mg PO QHS insomnia 10/20/18 zonisamide 25 mg capsule 25 mg PO DAILY unknown 10/20/18 buspirone 15 mg tablet mg PO BID anxiety 04/14/23 duloxetine 60 mg capsule,delayed release mg PO DAILY depression 04/14/23 insulin lispro protamine-lispro 100 unit/mL (75-25) subcutaneous pen subcut Type 2 DM 04/14/23 atorvastatin 80 mg tablet 80 mg PO DAILY hypercholestremia 03/16/25 dexmethylphenidate 20 mg capsule,extended release [id number] 20 mg PO DAILY on hold 03/16/25 duloxetine 30 mg capsule,delayed release 30 mg PO DAILY depression 03/16/25 ferrous sulfate 325 mg (65 mg iron) tablet 325 mg PO BID anemia 03/16/25 azithromycin 500 mg tablet (Zithromax) 500 mg PO DAILY 8 days #8 tabs 03/21/25 fluticasone propionate 50 mcg/actuation nasal spray,suspension 1 spray NASAL DAILY PRN allergic symptoms #0 grams 03/21/25 metoclopramide HCl 10 mg tablet (Reglan) 10 mg PO TID #30 tabs 03/21/25 ondansetron HCl 8 mg tablet 8 mg PO Q6H PRN PRN nausea and vomiting #40 tabs 03/21/25 Hospital Course Operations None Procedures Blood transfusion and EGD Summary of Care Provided Minutes Spent on Discharge: 32 Hospital Course: This 49-year-old white male was seen in the emergency room at [facility] with complaints of weakness, exertional dyspnea, and increased heart rate on exertion. Patient has had weight loss over the past 4 months. Patient felt as if he was going to pass out the day before. Patient had blood work done approximately a week before and was noted to be anemic with a hemoglobin of 9 with the previous hemoglobin between 14 and 15 a year before. Patient was scheduled to have a colonoscopy later on in the month at [facility], he denied any blood in his stools or black tarry stools. Workup in the ER revealed the patient's hemoglobin to be 7.2, CBC showed a normal white blood cell count glucose was 238. CT of the abdomen pelvis was performed and it was markedly abnormal with a mildly distended stomach secondary to gastric pyloric circumferential wall thickening with resultant luminal narrowing and findings concerning for underlying obstructive gastric mass or outlet obstruction. There are also noted to be multiple prominent retroperitoneal lymph nodes and diffuse nodularity within the anterior mesentery and bilateral paracolic gutters concerning for peritoneal carcinomatosis. Finally there were also noted to be multiple sclerotic osseous lesions that were concerning for bony metastases. The case was discussed with gastroenterology and the patient was admitted to [place] [address] and underwent an EGD and was given a blood transfusion. EGD showed evidence of a gastric mass which was biopsied and returned as an adenocarcinoma. Patient had a large amount of food in the stomach and it was felt that the patient had a gastric outlet obstruction, patient returned to his room and although he tolerated a diet he was nauseated. The patient received a blood transfusion and the following day, he returned to the endoscopy department for repeat EGD, before the EGD could be carried out, the patient vomited and had to return to his room. Chest x-ray performed showed no evidence of pneumonia. Patient returned the following day for an EGD and stent placement which was successful. I had the patient make contact with oncology while he was hospitalized and arrangements were made for the patient to be seen the week of 03/31/2025 and in the meantime, he was scheduled for a PET scan the week of 03/24/2025. On 03/21/2025, patient was seen and examined: On examination he appeared in good health and spirits. Vital signs as documented. Skin warm and dry and without overt rashes. Neck without JVD, neck was supple, trachea midline, thyroid was normal. Lungs clear bilaterally, normal air movement was noted. Heart exam notable for regular rhythm, normal sounds and absence of murmurs, rubs or gallops. Abdomen unremarkable and without evidence of organomegaly, masses, or abdominal aortic enlargement. Bowel sounds are present, abdomen is not distended. Extremities nonedematous, no cyanosis was noted, no clubbing was noted. Neuro: Cranial nerves II through XII are grossly intact, no focal motor deficits were noted, sensation to light touch and pinprick intact, motor exam 5/5 throughout. Psych: Patient is alert and oriented x3, he does not appear anxious or depressed, he does not appear agitated. Patient appears stable for discharge home on 03/21/2025, patient was instructed to obtain a CBC the week of 03/24/2025 and was given a prescription for this. Weight / BMI Weight Weight: 122.47 kg Body Mass Index (BMI) 34.7 ABG / Lab / Microbiology Data 03/21/25 05:33 03/17/25 04:09 Laboratory: Laboratory Results - last 24 hr 03/20/25 21:42: POC Glucose 174 H 03/21/25 05:33: Hgb 9.4 L, Hct 29.1 L 03/21/25 05:59: POC Glucose 168 H 03/21/25 11:27: POC Glucose 232 H Microbiology: Microbiology 03/16/25 13:16 Stool Stool Occult Blood (YASMINE) - Final Radiography Diagnostic Testing: Radiology Impression Fluoroscopy 03/20/25 14:37 IMPRESSION: Intraoperative imaging provided for duodenal stenting. Reading Location: [place] [address] D/C Instructions Discharge Diet: - (Clear liquids today, advance diet tomorrow to your usual diet) Weight Bearing Status: Full weight bearing DC O2, CPAP, BIPAP Needs Home O2 Discharge instructions: No Meaningful Use Info Meaningful Use Meaningful Use Diagnoses (Choose all that apply): None applicable Ischemic Stroke Statin Dosing Therapy Reference: STATIN DOSE THERAPY REFERENCE: * Patients > 75 years receive moderate or high dose statin therapy. * Patients 75 years or YOUNGER should receive HIGH intensity statin dose unless contraindicated. You will be required to document reason for non-treatment if statin daily dose does not meet guidelines. HIGH DOSE STATIN THERAPY DAILY Atorvastatin > than or = to 40 mg Rosuvastatin > than or = to 20 mg Amlodipine + Atorvastatin > than or = to 2.5/40 mg Ezetimibe + Simvastatin 10/80 mg Simvastatin 80mg Discharge Plan Admission Admit Date/Time: 03/16/25 14:55 Primary Reason for Your Visit: Gastric cancer, gastroparesis Attending Provider: Jacky Jaimes Primary Care Provider: Humberto Dos Santos Consulting Providers: Tia Bergman Discharge Orders/Prescriptions Prescriptions: New fluticasone propionate 50 mcg/actuation [place],Suspension 1 spray NASAL DAILY PRN (Reason: allergic symptoms) Qty: 0 0RF ondansetron HCl 8 mg tablet 8 mg PO Q6H PRN PRN (Reason: nausea and vomiting) Qty: 40 0RF metoclopramide HCl [Reglan] 10 mg tablet 10 mg PO TID Qty: 30 0RF azithromycin [Zithromax] 500 mg tablet 500 mg PO DAILY 8 Days Qty: 8 0RF Continued multivitamin 1 EACH tablet 1 ea PO DAILY esomeprazole magnesium 40 MG capsule 40 mg PO QHS fenofibrate 50 MG capsule 54 mg PO DAILY metformin 500 mg tablet 1,000 mg PO BID doxepin 10 MG capsule 10 mg PO QHS olanzapine 2.5 MG tablet 2.5 mg PO QHS zonisamide 25 MG capsule 25 mg PO DAILY buspirone 15 mg tablet PO BID Patient Comments: TAKE 1 TABLET BY MOUTH TWICE A DAY insulin lispro protamin-lispro 100 unit/mL (75-25) insulin pen SUBCUT duloxetine 60 mg capsule,delayed release(DR/EC) PO DAILY Patient Comments: TAKE 1 CAPSULE BY MOUTH ONCE DAILY atorvastatin 80 mg tablet 80 mg PO DAILY dexmethylphenidate 20 mg capsule,ER biphasic 50-50 20 mg PO DAILY duloxetine 30 mg capsule,delayed release(DR/EC) 30 mg PO DAILY ferrous sulfate 325 mg (65 mg iron) tablet 325 mg PO BID Discontinued atorvastatin 20 mg tablet 20 mg PO DAILY Other Ambulatory Orders: CBC W/Diff, Automated (Routine) Timeframe: 20250325 Facility: [facility] - Location: Laboratory Ordered By: Dr. Jacky Jaimes Referrals / Follow Up: Humberto Dos Santos MD [Primary Care Provider] - Cary Chandra MD [Med Staff - Active Staff] - See Referral Note (At your scheduled appointment time) Disposition Disposition (needs filled in before D/C Order can be placed): Home, Self Care Charges/Coding Visit Charges Inpatient E&M: 50878 Disch Hosp >30min
--- NOTE | 2025-03-21 13:15 | CASEMGMT ---
KENNEY CM into pt room, pt lying in bed with visitor at bedside. Pt denies any homegoing needs at this time. Pt has a PET scan set up for Monday and an appt with the following Monday. Pt has been in contact with their office already. Pt denies anything further and is ready for dc.
[2025-03-21 13:16] VITALS: BP 127/84; PULSE 100; RESP 18; TEMP 36.2; O2SAT 98
--- NOTE | 2025-03-21 18:00 | PCM.PN.BLA ---
Progress Note Patient underwent duodenal stent placement yesterday for palliation of gastric outlet obstruction. He is tolerating liquids. He still had a lot of food in his stomach. Physical Exam Narrative alert, oriented x3 and no apparent distress General Appearance: cooperative, well kempt and well developed Orientation / Consciousness: awake, oriented to person, oriented to place and oriented to time HEENT normocephalic, head/scalp atraumatic and moist oral mucous membranes Eyes PERRL, EOMs intact bilaterally and conjunctivae normal Neck supple, no JVD, thyroid normal and no carotid bruits General: trachea midline Resp normal respiratory effort, no retractions, no use of accessory muscles and clear to auscultation bilaterally Auscultation: Negative for rales, rhonchi or wheezes Cardio regular rate, regular rhythm, no murmurs, no rub and no gallops GI normal to inspection, nondistended, normoactive bowel sounds, soft to palpation, non-tender and non-distended Extremity no clubbing, cyanosis or edema Skin no rashes or lesions noted General Skin Exam: no breakdown Neuro oriented x3, CN's II-XII intact bilaterally, no focal motor deficits and no sensory deficits noted Sensorium / Orientation: awake and alert Speech: speech normal Psych affect normal Assessment & Plan Assessment/Plan (1) Carcinomatosis: (2) Cancer, metastatic to bone: (3) Gastric mass: (4) Anemia: (5) Symptomatic anemia: PLAN: Plan We will perform a repeat upper endoscopy to evaluate his upper GI tract and tried to place duodenal stent across the pylorus. He was explained alternatives, risk and benefits including missed any bleeding, infection, subsequent perforation, need for urgent . He will have an-ASA 3.. 03/21/2025-status post duodenal stent placement. Patient does feel little bit less distended. He does have some abdominal pain but it is getting better. He is going to follow-up with oncology KOLE. Visit Charges Inpatient E&M: 59004 [facility] Hosp L3
== END 2025-03-21 13:39 | disposition home or self-care (01) | DRG 375 ==
LOC: ED 15:03 → MS3 15:09
PROVIDERS: Internal Medicine Gastroenterology; Admitting Provider Internal Medicine; Emergency Provider Emergency Medicine; PCP Family Medicine; Visit Provider Internal Medicine
PROC: 0DJ08ZZ Inspection of Upper Intestinal Tract, Via Natural or Artificial Opening Endoscopic (ICD-10-PCS; CPT 43235; principal; 2025-03-17 15:55)
DX: C16.9 Malignant neoplasm of stomach, unspecified (principal); K31.1 Adult hypertrophic pyloric stenosis; D62 Acute posthemorrhagic anemia; C79.51 Secondary malignant neoplasm of bone; E11.43 Type 2 diabetes mellitus with diabetic autonomic (poly)neuropathy; D50.9 Iron deficiency anemia, unspecified; F32.A Depression, unspecified; K25.9 Gastric ulcer, unspecified as acute or chronic, without hemorrhage or perforation; E11.65 Type 2 diabetes mellitus with hyperglycemia; E78.5 Hyperlipidemia, unspecified; G47.33 Obstructive sleep apnea (adult) (pediatric); K31.84 Gastroparesis; K21.00 Gastro-esophageal reflux disease with esophagitis, without bleeding; Z79.84 Long term (current) use of oral hypoglycemic drugs; Z80.0 Family history of malignant neoplasm of digestive organs; F90.9 Attention-deficit hyperactivity disorder, unspecified type
CPT/HCPCS: 36415; 71045; 74177; 76000; 80048; 80076; 82274; 82728; 82962; 83036; 83540; 83550; 83735; 84100; 84484; 85014; 85018; 85025; 85045; 86850; 86900; 86901; 86920; 88305; 88331; 88341; 88342; 93005; 94668; 97802; 99252; 99285; C1876; P9016; Q9967; A4216; G0463; J2405; J2916

== ENCOUNTER → 2025-03-25 | Outpatient (CLI) | payer BC, SELFPAY ==
[2025-03-25 12:28] LABS: Absolute Lymphocyte Count 2.42 X10^3/uL (0.83-4.51); Absolute Neutrophil Count 4.9 X10^3/uL (2.0-7.7); Basophil# 0.06 X10^3/uL; Basophil% 0.7 % (0-1); Eosinophil# 0.29 X10^3/uL; Eosinophils% 3.5 % (0-5); Hematocrit 34.1 % (40-54); Hemoglobin 10.7 g/dL (13.0-16.5); Lymphocyte # 2.42 X10^3/ul (0.83-4.51); Lymphocyte % 29.3 % (19-41); Mean Corp Hgb Conc 31.4 g/dL (32-36); Mean Corpuscular Hgb 25.2 pg (27.0-32.0); Mean Corpuscular Volume 80.4 fL (80-94); Mean Platelet Vol. 11.7 fl (6.2-12.0); Monocyte% 7.3 % (0-10); NRBC Flagged by Analyzer 0 % (0-5); Neutrophil # 4.86 X10^3/uL (2.7-7.7); Neutrophil % 58.8 % (47-70); Platelet Count 396 K/mm3 (150-450); RBC Distribution Width CV 18.5 % (11.6-14.6); RBC Distribution Width SD 51.5 fl (35.1-43.9); Red Blood Count 4.24 M/mm3 (4.6-6.2); White Blood Count 8.3 K/mm3 (4.4-11.0)
== END | disposition home or self-care (01) ==
LOC: LAB 11:49
PROVIDERS: PCP Family Medicine; Referring Provider Internal Medicine; Visit Provider Internal Medicine
DX: D64.9 Anemia, unspecified (principal); C16.9 Malignant neoplasm of stomach, unspecified
CPT/HCPCS: 36415; 85025

== ENCOUNTER → 2025-04-04 | Outpatient (CLI) | payer BC, SELFPAY | END | disposition home or self-care (01) | LOC: OPMRI 09:42 | PROVIDERS: PCP Family Medicine; Referring Provider Internal Medicine Hematology & Oncology; Visit Provider Internal Medicine Hematology & Oncology | DX: Z00.00 Encounter for general adult medical examination without abnormal findings (principal) ==

== ENCOUNTER → 2025-04-08 | Outpatient (CLI) | payer BC, SELFPAY ==
--- NOTE | 2025-04-08 14:41 | RAD_ITS ---
PROCEDURE: ABDOMEN SINGLE VIEW 04/08/2025 REASON FOR EXAM: KUB CHECK ON MANTIS CLIP TECHNIQUE: Three-view supine abdomen COMPARISON: Autoclave Operator from the CT of 03/19/2025. RAD/Abdomen Single View IMPRESSION: Upper abdominal surgical clips and upper abdominal stent are in place. The bowel-gas pattern is unremarkable. No mass or mass effect is seen. No interval osseous change is noted. Reading Location: [place] [address]
--- OUTSIDE RECORDS SUMMARY | 2025-04-08 22:55 | XMS RPT_ITS | CCD ---
Author Organization [facility] CliniSyri Care Team Providers Care Hot Baller Name Role Phone Alejandro Calderon Unavailable Unavailable Humberto Jackson Unavailable Unavailable Humberto Jackson Unavailable Unavailable Ortiz, Nelly Unavailable Unavailable Humberto Jackson Unavailable Unavailable Humberto Jackson Unavailable Unavailable Humberto Jackson MD Primary Care Provider Humberto Jackson MD Primary Care Provider [phone] Humberto Jackson MD Primary Care Provider Humberto Jackson MD Primary Care Provider [phone] Dr. Humberto Jackson Primary Care Provider Dr. Macey Merchant Emergency Provider [phone] Prince Villanueva Attending Provider Dr. Prince Villanueva Other Provider Dr. Prince Villanueva Admit Provider Humberto Jackson MD Primary Care Provider Andre MOULTON, Efren Unavailable Humberto Jackson MD Primary Care Provider Humberto Jackson MD Primary Care Provider JARVIS PETERS Referring Unavailable HUMBERTO JACKSON Primary Care UnavailDominik Coronado APRN.CNP Unavailable Kenyatta Castaneda PA-C Unavailable TORRES MONACO Referring Unavailable HUMBERTO JACKSON Primary Care Unavailable HUMBERTO JACKSON Referring Unavailable HUMBERTO JACKSON Primary Care Unavailable HUMBERTO JACKSON Primary Care Unavailable LAUREN MCKEON Referring Unavailable Raya MD, Humberto A Primary Care Provider [phone] Allie JAVA MANAGER.MULTIPLE COIL WINDER, Dominik Unavailable Humberto Jackson MD Primary Care Provider Allie JAVA MANAGER.MULTIPLE COIL WINDER, Dominik Unavailable Leonel BENEDICT, Kenyatta Unavailable Raya TOLEDO, Dr. Paul Primary Care Provider Mayur SALINAS, Dr. Choudhury Emergency Provider [phone] Pacheco SALINAS, Dr. Weber Admit Provider Pacheco SALINAS, Dr. Weber Attending Provider Pacheco SALINAS, Dr. Weber Other Provider Theodore SALINAS, Dr. Rico Attending Provider Pacheco SALINAS, Dr. Weber Attending Provider Theodore SALINAS, Dr. Rico Other Provider Juan SALINAS, Dr. Castillo Attending Provider Theodore SALINAS, Dr. Rico Referring Provider Dr. Cary Chandra MD Attending Provider Theodore SALINAS, Dr. Rico Referring Provider Dr. Cary Chandra MD Referring Provider LAUREN MCKEON Attending Unavailable RAYA, HUMBERTO A Primary Care Unavailable JENN BOWMAN Attending Unavailable RAYA, HUMBERTO A Primary Care Unavailable RAYA, HUMBERTO A Referring Unavailable LEONEL, KENYATTA Referring Unavailable RAYA, HUMBERTO A Primary Care Unavailable RAYA, HUMBERTO A Primary Care Unavailable RAYA, HUMBERTO A Attending Unavailable RAYA, HUMBERTO A Primary Care Unavailable RAYA, HUMBERTO A Referring Unavailable RAYA, HUMBERTO A Primary Care Unavailable ALLIE, DOMINIK Referring Unavailable NELDA QUIGLEY Attending Unavailable RAYA, HUMBERTO A Primary Care Unavailable CASTANEDA, KENYATTA Referring Unavailable RAYA, HUMBERTO A Primary Care Unavailable RAYA, HUMBERTO A Attending Unavailable RAYA, HUMBERTO A Primary Care Unavailable RAYA, HUMBERTO A Attending Unavailable RAYA, HUMBERTO A Primary Care Unavailable ALLIE, DOMINIK Referring Unavailable RAYA, HUMBERTO A Primary Care Unavailable KENYATTA CASTANEDA Referring Unavailable RAYA, HUMBERTO A Primary Care Unavailable KNOBLE, DOMINIK Referring Unavailable ELIZABETH SUÁREZ Referring Unavailab le RAYA, HUMBERTO A Primary Care Unavailable VIKASH BOOTH Attending Unavailab le RAYA, HUMBERTO A Referring Unavailable RAYA, HUMBERTO A Primary Care Unavailable RAYA, HUMBERTO A Primary Care Unavailable RAYA, HUMBERTO A Attending Unavailable RAYA, HUMBERTO A Primary Care Unavailable KNOBLE, DOMINIK Referring Unavailable RAYA, HUMBERTO A Primary Care Unavailable KNOBLE, DOMINIK Attending Unavailable RAYA, HUMBERTO A Primary Care Unavailable RAYA, HUMBERTO A Referring Unavailable RAYA, HUMBERTO A Primary Care Unavailable KENYATTA CASTANEDA Attending Unavailable KARLA PATEL Attending Unavailable RAYA, HUMBERTO A Primary Care Unavailable KNOBLE, DOMINIK Referring Unavailable RAYA, HUMBERTO A Primary Care Unavailable KNOBLE, DOMINIK Referring Unavailable KARLA PATEL Attending Unavailable RAYA, HUMBERTO A Primary Care Unavailable KNOBLE, DOMINIK Referring Unavailable RAYA, HUMBERTO A Referring Unavailable RAYA, HUMBERTO A Primary Care Unavailable RAYA, HUMBERTO A Primary Care Unavailable RAYA, HUMBERTO A Attending Unavailable RAYA, HUMBERTO A Primary Care Unavailable RAYA, HUMBERTO A Attending Unavailable RAYA, HUMBERTO A Primary Care Unavailable KNOBLE, DOMINIK Attending Unavailable GOLIAS, KARLA Attending Unavailable RAYA, HUMBERTO A Primary Care Unavailable KNOBLE, DOMINIK Referring Unavailable GOLSHAUN BERMUDEZNT Attending Unavailable RAYA, HUMBERTO A Primary Care Unavailable KNOBLE, DOMINIK Referring Unavailable RAYA, HUMBERTO A Referring Unavailable RAYA, HUMBERTO A Primary Care Unavailable RAYA, HUMBERTO A Primary Care Unavailable RAYA, HUMBERTO A Attending Unavailable RAYA, HUMBERTO A Referring Unavailable JANA BABCOCK Attending Unavailable RAYA, HUMBERTO A Primary Care Unavailable RAYA, HUMBERTO A Primary Care Unavailable RAYA, HUMBERTO A Attending Unavailable RAYA, HUMBERTO A Primary Care Unavailable RAYA, UHMBERTO A Referring Unavailable RAYA, HUMBERTO A Primary Care Unavailable RAYA, HUMBERTO A Referring Unavailable Prateek TOLEDO, Dr. Townsend Referring Provider [phone] Dr. Maranda Hansen MD Attending Provider Raya, Humberto Primary Care Unavailable Jacky Jaimes Attending Unavailable Tia Bergman Admitting Unavailable Tia Bergman Consulting Unavailable [facility] Unavailable Friend, Jonathan Attending Unavailable Tia Bergman Consulting Unavailable Tia Bergman Admitting Unavailable Jacky Jaimes Referring Unavailable Jacky Jaimes Consulting Unavailable aJcky Jaimes Attending Unavailable Tia Bergman Attending Unavailable Humberto Jackson Primary Care Unavailable Humberto Jackson Referring Unavailable Isckarus, Mansour [facility]ending Un[facility] Tereletsky Jacky Referring Unavailable Isckarus, Mansour Attending Unavailable [facility] Unavailable Robotham, Maranda Attending Unavailable Isckarus, Mansour Referring Un[facility] Unavailable Isckarus, Mansour Referring Unavailable Isckarus, Mansour [facility]ending Un[facility] Robotham, Maranda Referring Unavailable Robotham, Maranda Attending Un[facility] Unavailable Isckarus, Mansour Referring Unavailable Isckarus, Mansour Attending [facility] Unavailable Jacky Jaimes Attending Unavailable Jacky Jaimes Referring Unavailable Raya TOLEDO, Dr. Paul Referring Provider Allergies Allergy Classification Reported Allergen(s) Allergy Type Date of Onset Reaction(s) Facility (20 sources) Citalopram; Translations: [CITALOPRAM HYDROBROMIDE] Drug Allergy 10-22-19 15 Other: See Comments [facility] Work Phone: (20 sources) Metoclopramide; Translations: [METOCLOPRAMIDE HCL] Drug Allergy 01-25-20 07 Unknown, Other: See Comments [facility] Work Phone: (20 sources) Sertraline; Translations: [SERTRALINE HCL] Drug Allergy 10-22-19 15 Other: See Comments [facility] Work Phone: (20 sources) topiramate; Translations: [TOPIRAMATE] Drug Allergy 02-05-20 14 Mental Status Change [facility] Work Phone: Comment on above: can't remember (20 sources) venlafaxine; Translations: [VENLAFAXINE ANALOGUES] Drug Allergy 10-22-19 15 Other: See Comments [facility] Work Phone: (8 sources) Citalopram Drug Allergy 03-06-20 19 Unknown [facility] (8 sources) Metoclopramide Drug Allergy 03-06-20 19 weirds me out [facility] (8 sources) Sertraline Drug Allergy 03-06-20 19 sexual side effects [facility] (1 source) ALLERGIES NOT ON FILE; Translations: [ALLERGIES NOT ON FILE] Propensity to adverse reactions (disorder) [facility] (1 source) Citalopram Drug Allergy 04-08-20 [facility] (1 source) Metoclopramide Drug Allergy 04-08-20 [facility] (1 source) Sertraline Drug Allergy 04-08-20 [facility] (1 source) topiramate Drug Allergy 04-08-20 [facility] (1 source) venlafaxine Drug Allergy 04-08-20 [facility] Rep[facility] Medications Current Medications Medication Drug Class(es) Dates Sig (Normalized) Sig (Original) [id number] 200 actuat albuterol 0.09 mg/actuat metered dose [...] hours as needed for wheezing/shortness of breath. atorvastatin 80 mg oral tablet (20 sources) HMG-CoA Reductase Inhibitor Start: 2024 take 1 tablet by mouth once daily Atorvastatin 80 mg tablet Active 80 mg PO DAILY March 16, 2025 12:00am hypercholestremia Start: 06-06-2024 End: 09-17-2024 take 1 tablet by mouth once daily atorvastatin (LIPITOR) 80 mg tablet Indications: Dyslipidemia Take 1 tablet by mouth once daily. 90 tablet 1 09/17/2024 Active Start: 12-07-2023 End: 06-06-2024 take 1 tablet by mouth once daily atorvastatin (LIPITOR) 40 mg tablet Take 1 tablet by mouth once daily. 90 tablet 1 12/07/2023 06/06/2024 Discontinued Start: 03-22-2018 End: 03-21-2025 take 1 tablet by mouth once daily Atorvastatin 20 mg tablet Discontinued 20 mg PO DAILY March 22, 2018 12:00am March 21, 2025 12:15pm high cholesterol Comment on above: Take 1 tablet by good th once daily. Blood-Glucose Sensor (FREESTYLE DIANA 3 SENSOR) agnes (20 sources) Start: 11-05-2024 Blood-Glucose Sensor (FREESTYLE DIANA 3 SENSOR) agnes Indications: Type 2 diabetes mellitus without complication, without long-term current use of insulin (HCC) USE ONE SENSOR EVERY 14 DAY, IDDM, E11.9 2 Each 2 11/05/2024 Active Start: 10-18-2023 End: 11-05-2024 Blood-Glucose Sensor (FREEST YLE DIANA 3 SENSOR) agnes Indications: Type 2 diabetes mellitus without complication, without long-term current use of insulin (HCC) Use one sensor every 14 day, IDDM, E11.9 2 Each 11 10/18/2023 11/05/2024 Discontinued Start: 10-18-2023 Blood-Glucose Sensor (FREESTYLE DIANA 3 SENSOR) agnes Indications: Type 2 diabetes mellitus without complication, without long-term current use of insulin (HCC) Use one sensor every 14 day, IDDM, E11.9 2 Each 11 10/18/2023 Active Start: 10-21-2022 End: 10-18-2023 Blood-Glucose Sensor (FREEST YLE DIANA 3 SENSOR) agnes Indications: Type 2 diabetes mellitus without complication, without long-term current use of insulin (HCC) Use one sensor every 14 day, IDDM, E11.9 2 Each 10/21/2022 10/18/2023 Discontinued Start: 10-21-2022 Blood-Glucose Sensor (FREESTYLE DIANA 3 SENSOR) agnes Indications: Type 2 diabetes [...] take 1 tablet by mouth twice daily Buspirone 15 mg tablet Active 15 mg PO TWICE A DAY April 14, 2023 12:00am anxiety Start: 07-30-2020 End: 12-22-2020 take 1 tablet by mouth twice daily busPIRone (BUSPAR) 15 mg tablet Take one tab by mouth twice a day. 60 tablet 5 07/30/2020 12/22/2020 Discontinued Comment on above: Take one tab by mout h twice a day. 24 hr dexmethylphenidate hydrochloride 20 mg extended release oral capsule (20 sources) Central Nervous System Stimulant Start: End: Dexmethylphenidate 20 mg capsule,ER biphasic 50-50 Active 20 mg PO DAILY March 16, 2025 12:00am Start: 02-06-2025 End: 03-08-2025 Dexmethylphenidate 20 mg cap miles,ER biphasic 50-50 Active 20 mg PO DAILY March 16, 2025 12:00am doxepin hydrochloride 10 mg oral capsule (20 sources) Tricyclic Antidepressant Start: 10-20-2018 End: 09-17-2024 take 1 capsule by mouth at bedtime Doxepin 10 MG capsule Active 10 mg PO AT BEDTIME October 20, 2018 1:00am insomnia Comment on above: Take 1 capsule by mo uth daily at bedtime. DULoxetine 60 mg delayed release oral capsule (20 sources) Serotonin and Norepinephrine Reuptake Inhibitor Start: 04-04-2025 take 1 capsule by mouth twice daily DULoxetine (CYMBALTA) 60 mg capsule Take 1 capsule by mouth two times a day. 180 capsule 1 04/04/2025 Active Start: 08-19-2024 End: 04-08-2025 take 1 capsule by mouth once daily Duloxetine 30 mg capsule,delayed release(DR/EC) Discontinued 30 mg PO DAILY March 16, 2025 12:00am April 08, 2025 9:27am depression Start: 04-14-2023 Duloxetine Act christiano MG PO April 14, 2023 12:00am Start: 08-20-2021 End: 04-04-2025 take 1 capsule by mouth once daily Duloxetine 60 mg capsule,delayed release(DR/EC) Active 60 mg PO DAILY April 14, 2023 12:00am depression Start: 06-22-2020 End: 12-22-2020 take 1 capsule by mouth once daily DULoxetine (CYMBALTA) 60 mg capsule Take 1 capsule by mouth once daily. 90 capsule 1 06/22/2020 12/22/2020 Discontinued Comment on above: Take 1 capsule by [facility] once daily. esomeprazole 40 mg delayed release oral capsule (20 sources) Proton Pump Inhibitor Start: End: take 1 capsule by mouth at bedtime Esomeprazole Magnesium 40 MG capsule Active 40 mg PO AT BEDTIME October 10, 2017 1:00am gerd Start: 10-10-2017 End: 04-04-2025 take 1 capsule by mouth twice daily esomeprazole (NEXIUM) 40 mg capsule Take 1 capsule by mouth two times a day. 180 capsule 1 10/14/2024 04/04/2025 Discontinued (Adjust Sig - Block E-Cancel) Comment on above: Take 40 mg by mouth once daily. Take 1 capsule by [facility] once daily. fenofibrate 120 mg oral [...] tablet 1 08/19/2024 10/16/2024 Discontinued Start: 10-10-2017 Fenofibrate 50 MG capsule Active 54 mg PO DAILY October 10, 2017 1:00am cholesterol Start: 10-10-2017 take 54 mg by mouth once daily Fenofibrate Active 54 MG PO DAILY October 10, 2017 1:00am Comment on above: Take 1 tablet by good th once daily. ferrous sulfate 325 mg oral tablet (20 sources) Start: 03-16-2025 take 1 tablet by mouth twice daily Ferrous Sulfate 325 mg (65 mg iron) tablet Active 325 mg PO TWICE A DAY March 16, 2025 12:00am anemia Start: 03-10-2025 End: 04-01-2025 take 1 tablet by mouth twice daily at mealtime ferrous sulfate 325 mg (65 mg iron) tablet TAKE 1 TABLET BY MOUTH TWICE A DAY WITH FOOD 180 tablet 1 04/01/2025 Active 3 ml insulin glargine 100 unt/ml pen [...] up to 82 units daily 30 mL 01/17/2024 01/17/2024 Discontinued Start: 10-19-2023 End: 01-17-2024 [...] up to 75 units daily 30 mL 10/19/2023 01/17/2024 Discontinued Start: 03-04-2021 End: 03-04-2022 [...] mg oral tablet (20 sources) Biguanide Start: 03-22-2018 End: 02-18-2025 take 2 tablets by mouth twice daily Metformin 500 mg tablet Active 1000 mg PO TWICE A DAY March 22, 2018 8:17am diabetes Start: 03-22-2018 take 1000 mg by mout h twice daily Metformin Active 1000 MG PO TWICE A DAY March 22, 2018 8:17am Start: 10-10-2017 End: 03-22-2018 take 1 tablet by mouth once daily Metformin 500 MG tablet Discontinued 500 mg PO DAILY October 10, 2017 1:00am March 22, 2018 8:19am diabetes Comment on above: Take 2 tablets by mo [facility] twice daily with meals. Take 2 tablets by mo [facility] two times a day with meals. 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 30 capsule 0 03/27/2023 04/26/2023 Active Comment on above: Take 1 capsule by [facility] once daily for 30 days. metoclopramide 10 mg oral tablet (8 sources) Dopamine-2 Receptor Antagonist Start: 04-08-20 take 5 mg by mouth three times daily Metoclopramide Hcl (Reglan) 10 mg tablet Active 5 mg PO THREE TIMES A DAY April 08, 2025 12:00am Start: 03-21-2025 take 5 mg by mouth t hree times daily metoclopramide HCl (REGLAN) 10 mg tablet Take 5 mg by mouth three times a day. 03/21/2025 Active Start: 03-21-2025 End: 04-08-2025 take 1 tablet by mouth three times daily Metoclopramide Hcl (Reglan) 10 mg tablet Discontinued 10 mg PO THREE TIMES A DAY 30 0 March 21, 2025 12:00am April 08, 2025 9:31am Multivitamin 1 EACH tablet (6 sources) Start: 10-10-2017 Multivitamin 1 EACH tablet Active 1 NMA PO DAILY October 10, 2017 1:00am supplement Start: 10-10-2017 Multivitamin 1 EACH tablet Active 1 NMA PO DAILY October 10, 2017 1:00am Multivitamin preparation (2 sources) Start: 10-10-2017 Multivitamin Active 1 EACH PO DAILY October 10, 2017 1:00am multivitamin tablet (20 sources) Start: 12-16-2014 take 1 tablet by mouth once daily multivitamin tablet Take 1 tablet by mouth once daily. 0 12/16/2014 Active Comment on above: Take 1 tablet by good th once daily. OLANZapine 5 mg oral tablet (20 sources) Atypical Antipsychotic Start: 08-20-2021 End: 12-20-2024 take 1 tablet by mouth once daily at bedtime OLANZapine (ZYPREXA) 5 mg tablet Take 1 tablet by mouth daily at bedtime. 90 tablet 1 12/20/2024 Active Start: 10-20-2018 End: 12-22-2020 take 1 tablet by mouth at bedtime Olanzapine 2.5 MG tablet Active 2.5 mg PO AT BEDTIME October 20, 2018 1:00am insomnia Comment on above: Take 1 tablet by good th daily at bedtime. ondansetron 8 mg oral tablet (7 sources) Serotonin-3 Receptor Antagonist Start: take 1 tablet by mouth every eight hours as needed ondansetron (ZOFRAN) 8 mg tablet Take 8 mg by mouth every 8 hours as needed for nausea/vomiting (every 6-8 hours prn). 03/21/2025 Active Start: 03-21-2025 take 1 tablet by good th every six hours as needed for nausea and vomiting Ondansetron Hcl 8 mg tablet Active 8 mg PO EVERY 6 HOURS NEEDED as needed for nausea and vomiting 40 0 March 21, 2025 12:17pm polyethylene glycol [id number] [id number] mg / potassium chloride 2970 mg / sodium bicarbonate 6740 mg / sodium chloride 5860 mg / sodium sulfate 46405 mg powder for oral solution (3 sources) [...] take 1 capsule by mouth once daily Comment on above: Take 1 capsule by mo [facility] once daily. Completed/Discontinued Medications Medication Drug Class(es) Dates Sig (Normalized) Sig (Original) acetaminophen 325 mg / oxyCODONE hydrochloride 5 mg oral tablet (6 sources) Opioid Agonist Start: 03-10-2024 End: 03-16-2025 Oxycodone-Acetamino phen 5-325 mg tablet Discontinued 1 - 2 {tbl} PO EVERY 6 HOURS as needed for pain 14 3 0 March 10, 2024 March 16, 2025 4:32pm Postoperative pain Other acute postprocedural pain amoxicillin 875 mg / clavulanate 125 mg oral tablet (20 sources) Penicillin-class Antibacterial Start: 03-10-2024 End: 03-16-2025 Amoxicillin-Pot Clavulanate 875-125 mg tablet Discontinued 1 {tbl} PO Q12H 14 0 March 10, 2024 12:00am March 16, 2025 4:21pm Start: 04-15-2023 End: 04-25-2023 Amoxicillin-Pot Clavulanate 500-125 mg Tablet Discontinued 1 {tbl} PO EVERY 8 HOURS 21 7 0 April 15, 2023 12:00am April 25, 2023 1:08pm Perirectal abscess Rectal abscess Start: 04-15-2023 take 1 tablet by good th every eight hours Amoxicillin-Pot Clavulanate Active 1 TABLET PO EVERY 8 HOURS 21 7 April 15, 2023 12:00am Start: 10-14-2017 End: 01-24-2018 take 1 tablet by mouth every twelve hours Amoxicillin-Pot Clavulanate 875 MG tablet Discontinued 875 mg PO Q12H 10 0 October 14, 2017 1:00am January 24, 2018 8:55am Community acquired pneumonia Pneumonia, unspecified organism aspirin 81 mg delayed release oral tablet (20 sources) Platelet Aggregation Inhibitor, Nonsteroidal Anti-inflammatory Drug Start: 05-16-2018 End: 01-27-2023 take 1 tablet by mouth once daily aspirin, enteric coated (ASPIRIN, ENTERIC COATED) 81 mg EC tablet Take 1 tablet by mouth once daily. 05/16/2018 01/27/2023 Discontinued Comment on above: Take 1 tablet by good th once daily. azithromycin 500 mg oral tablet (13 sources) Macrolide Antimicrobial Start: 03-21-2025 End: 04-07-2025 take 1 tablet by mouth once daily Azithromycin (Zithromax) 500 mg tablet Discontinued 500 mg PO DAILY 8 8 0 March 21, 2025 12:00am April 07, 2025 1:54pm Start: 10-14-2017 End: 01-24-2018 take 1 tablet by mouth once daily Azithromycin 500 MG tablet Discontinued 500 mg PO DAILY 2 0 October 14, 2017 1:00am January 24, 2018 8:55am Community acquired pneumonia Pneumonia, unspecified organism cefadroxil 500 mg oral capsule (1 source) [...] choice. LIFETIME SUPPLIES. SD Card. Download to [employer] Device 09/28/2017 08/19/2024 Discontinued Start: 09-28-2017 CPAP AUTO PAP 5-20 cmH20, CHIN STRAP, heated HUMIDITY, mask of patient's choice. LIFETIME SUPPLIES. SD Card. Download to [employer]. 1 Device 09/28/2017 Active Comment on above: AUTO PAP 5-20 cmH20, CHIN STRAP, heated HUMIDITY, mask of patient's choice. LIFETIME SUPPLIES. SD Card. Download to [employer]. empagliflozin 25 mg oral tablet (20 sources) Sodium-Glucose Cotransporter 2 Inhibitor Start: 10-22-19 End: 03-16-20 take 1 tablet by mouth once daily Empagliflozin 25 MG tablet Discontinued 25 mg PO DAILY 30 0 October 22, 2018 1:00am March 16, 2025 4:27pm Comment on above: Take 1 tablet by good once daily. Fish Oils (8 sources) Start: 10-20-19 End: 03-16-20 take 1 capsule by mouth twice daily Fish Oil 1,000 mg Capsule Discontinued 1000 mg PO TWICE A DAY October 20, 2018 1:00am March 16, 2025 4:28pm Start: 10-20-2018 take 1 capsule by mo ut twice daily Fish Oil 1,000 mg Capsule Active 1000 mg PO TWICE A DAY October 20, 2018 1:00am Start: 10-20-2018 take 1 capsule by mo ut twice daily Fish Oil 1,000 mg Capsule Active 1000 MG PO TWICE A DAY October 20, 2018 1:00am FLUoxetine 40 mg oral capsule (16 sources) Serotonin Reuptake Inhibitor Start: 03-22-2018 End: 03-16-2025 Fluoxetine 40 mg capsule Discontinued 60 mg PO daily March 22, 2018 12:00am March 16, 2025 4:28pm Start: 03-22-2018 take 60 mg by mouth once daily Fluoxetine Active 60 MG PO daily March 22, 2018 12:00am Start: 10-10-2017 End: 03-22-2018 take 1 capsule by mouth once daily Fluoxetine 10 MG capsule Discontinued 10 mg PO DAILY October 10, 2017 1:00am March 22, 2018 8:18am depression fluticasone propionate 0.05 mg/actuat metered dose nasal spray (20 sources) Corticosteroid Start: 03-21-2025 End: 04-08-2025 Fluticasone Propionate 50 mcg/actuation [place],Suspension Discontinued 1 NMA NASAL DAILY as needed for allergic symptoms 0 0 March 21, 2025 12:00am April 08, 2025 9:28am Start: 04-14-2023 End: 03-16-2025 Fluticasone Propionate 50 mc g/actuation spray,suspension Discontinued 1 NMA INTRANASAL DAILY as needed for allergic symptoms April 14, 2023 12:00am March 16, 2025 4:29pm administer into each nostril Start: 04-14-2023 take 1 spray(s) nasa l route once daily Fluticasone Propionate Active 1 SPRAY INTRANASAL DAILY April 14, 2023 12:00am administer into each nostril Start: 09-03-2014 End: 07-07-2023 take 1 spray(s) by mouth once daily fluticasone (FLONASE) 50 mcg/actuation nasal spray Indications: Allergic rhinitis , Eustachian tube dysfunction Use 1 [place] in each nostril once daily. Rinse mouth after use. 1 Bottle 11 09/03/2014 07/07/2023 Discontinued Comment on above: Use 1 [place] in each nostril once daily. Rinse mouth after use. glimepiride 4 mg oral tablet (15 sources) Sulfonylurea Start: 07-30-20 End: 06-07-20 take 1 tablet by mouth once daily at breakfast glimepiride (AMARYL) 4 mg tablet Take 1 tablet by mouth daily with breakfast. 30 tablet 5 12/22/2020 01/05/2022 Discontinued Comment on above: Take 1 tablet by good th daily with breakfast. 3 ml insulin degludec 100 unt/ml pen injector (20 sources) Insulin Analog Start: 01-17-20 End: 03-10-20 inject 60 [IU] by subcutaneous injection once [...] pen injector (20 sources) Insulin Analog Start: End: inject 45 [IU] by subcutaneous injection at breakfast insulin 75/25 lispro protamine-lispro units/mL (HUMALOG MIX 75/25 KWIKPEN) 100 unit/mL (75-25) pen Indications: Type 2 diabetes mellitus without complication, without long-term current use of insulin (HCC) Inject subcutaneously 45 units breakfast and 45 units dinner 30 mL 07/07/2023 10/18/2023 Discontinued Start: 04-14-2023 End: 04-08-2025 Insulin Lispro Protamin-Lisp ro 100 unit/mL (75-25) insulin pen Discontinued MT April 14, 2023 12:00am April 08, 2025 9:28am Type 2 DM Start: 04-14-2023 Insulin Lispro Protamin-Lispro Active MT April 14, 2023 12:00am Start: 01-27-2023 inject 35 [IU] by wilson bcutaneous injection at breakfast insulin lispro protamine-insulin lispro (HumaLOG 75/25) pen Indications: Type 2 diabetes mellitus without complication, without long-term current use of insulin ([facility]) Inject subcutaneously 35 units breakfast and 35 units dinner 30 mL 01/27/2023 Active Start: 06-07-2022 End: 01-27-2023 inject 25 [IU] by subcutaneous injection at breakfast insulin lispro protamine-insulin lispro (HumaLOG 75/25) pen Indications: Type 2 diabetes mellitus without complication, without long-term current use of insulin (HCC) Inject subcutaneously 25 units breakfast and 25 units dinner 15 mL 10/21/2022 01/27/2023 Discontinued Comment on above: Inject [...] Take 1 tablet by good once daily. omega-3 fatty acids 1,000 mg cap (20 sources) Start: 2019 End: 2022 take 1 capsule by mouth twice daily omega-3 fatty acids 1,000 mg cap Take 1 capsule by mouth twice daily. 180 capsule 3 02/03/2020 07/07/2023 Discontinued Start: 02-03-2020 take 1 capsule by mo [facility] twice daily omega-3 fatty acids 1,000 mg cap Take 1 capsule by mouth twice daily. 180 capsule 3 02/03/2020 Active Comment on above: Take 1 capsule by mo [facility] twice daily. oxyCODONE hydrochloride 5 mg oral tablet (7 sources) Opioid Agonist Start: 3 End: 3 take 1 tablet by mouth every six hours as needed for pain Oxycodone 5 mg Tablet Discontinued 5 mg PO EVERY 6 HOURS NEEDED as needed for Pain Score 6-10 10 3 0 April 15, 2023 April 25, 2023 1:08pm Perirectal abscess Rectal abscess riboflavin 100 mg oral tablet (20 sources) [...] complication, without long-term current use of insulin ([facility]) Take 1 tablet by mouth daily before breakfast. X 30 days 30 tablet 0 10/21/2022 01/27/2023 Discontinued Start: 10-21-2022 End: 01-27-2023 take 1 tablet by mouth once daily before breakfast semaglutide (RYBELSUS) 7 mg tablet Indications: Type 2 diabetes mellitus without complication, without long-term current use of insulin ([facility]) Take 1 tablet (7 mg) by mouth daily before breakfast. (Start after having taken 3mg daily x 30 days) 30 tablet 5 10/21/2022 01/27/2023 Discontinued Start: 03-04-2022 End: 06-07-2022 semaglutide (OZEMPIC) 0.25 m g or 0.5 mg(2 mg/1.5 mL) pen injector Indications: Type 2 diabetes mellitus without complication, without long-term current use of insulin (HCC) Inject 0.25 mg weekly x 4 wks [...] Da te Episodic/Chronic Anal and rectal conditions (16 sources) Perirectal abscess; Translations: [Rectal abscess] 04-14-2023 Episodic Comment on above: left Anxiety disorders (20 sources) Other specified anxiety disorders; Translations: [Generalized anxiety disorder] Onset: 7 07-28-2020 Chronic Asthma (20 sources) Allergic asthma; Translations: [Unspecified asthma, uncomplicated] Onset: 5 05-12-2015 Chronic Cancer of stomach (20 sources) Malignant tumor of stomach; Translations: [Malignant neoplasm of stomach, unspecified] Onset: 5 03-19-2025 Chronic Cardiac dysrhythmias (4 sources) Tachycardia; Translations: [Tachycardia, unspecified] Onset: 5 03-06-2025 Episodic Conditions associated with dizziness or vertigo (4 sources) Lightheadedness; Translations: [Dizziness and giddiness] Onset: 5 03-06-2025 Episodic Deficiency and other anemia (20 sources) Anemia; Translations: [Anemia, unspecified] 12-30-2024 Episodic Deficiency and other anemia (4 sources) Iron deficiency anemia; Translations: [Iron deficiency anemia, unspecified] Onset: 5 03-10-2025 Episodic Deficiency and other anemia (12 sources) Microcytic anemia; Translations: [Iron deficiency anemia, unspecified] 03-16-2025 Episodic Deficiency and other anemia (4 sources) Anemia, unspecified; Translations: [Anemia, unspecified type] Onset: 5 Episodic Deficiency and other anemia (3 sources) Iron deficiency anemia, unspecified; Translations: [Iron deficiency anemia, unspecified iron deficiency anemia type] Onset: 5 Episodic Diabetes mellitus without complication (20 sources) [...] disease without esophagitis] Onset: 8 09-26-2018 Chronic Gastroduodenal ulcer (except hemorrhage) (13 sources) H/O: gastric ulcer; Translations: [Personal history of peptic ulcer disease] Onset: 5 03-19-2025 Episodic Gastrointestinal hemorrhage (1 source) Gastrointestinal hemorrhage, unspecified; Translations: [Gastrointestinal hemorrhage, unspecified] Onset: 5 Episodic Headache, including migraine (20 sources) Migraine, unspecified, not intractable, without status migrainosus; Translations: [Migraine without aura, not refractory ] Onset: 5 09-11-2015 Chronic Joint disorders and dislocations; trauma-related (20 sources) Joint derangement; Translations: [Other internal derangements of unspecified knee] Onset: 3 02-04-2014 Chronic Malignant neoplasm without specification of site (15 sources) Carcinomatosis; Translations: [Disseminated malignant neoplasm, unspecified] Onset: 5 03-16-2025 Chronic Miscellaneous mental health disorders (20 sources) [...] Resolved: 5 11-22-2024 Episodic Nonspecific chest pain (10 sources) Chest pain, unspecified; Translations: [Chest pain] Onset: 8 10-20-2018 Episodic Nutritional deficiencies (17 sources) Cobalamin deficiency; Translations: [Deficiency of other specified B group vitamins] Onset: 5 03-10-2025 Episodic Other aftercare (20 sources) Patient encounter status; Translations: [Other half-way (current) drug therapy] Onset: 0 07-28-2020 Episodic Other aftercare (1 source) Encounter for adjustment and management of vascular access device; Translations: [Encounter for adjustment and management of vascular access device] Onset: 5 Episodic Other and unspecified benign neoplasm (2 sources) Pituitary adenoma; Translations: [Benign neoplasm of pituitary gland] 12-20-2024 Episodic Other circulatory disease (2 sources) Abnormal chest sounds; Translations: [Other specified symptoms and signs involving the circulatory and respiratory systems] 12-30-2024 Episodic Other connective tissue disease (1 source) Pain in right foot; Translations: [Pain in right foot] 10-27-2023 Episodic Other connective tissue disease (4 sources) Adhesive capsulitis of right shoulder; Translations: [Adhesive capsulitis of right shoulder] 02-24-2025 Episodic Other connective tissue disease (1 source) Adhesive capsulitis of right shoulder; Translations: [Adhesive capsulitis of right shoulder] Onset: 5 Episodic Other disorders of stomach and duodenum (14 sources) Mass of stomach; Translations: [Other diseases of stomach and duodenum] 03-16-2025 Episodic Other disorders of stomach and duodenum (2 sources) Other diseases of stomach and duodenum; Translations: [Other diseases of stomach and duodenum] Onset: 5 Episodic Other endocrine disorders (1 source) Pituitary [...] source) Other dysphagia; Translations: [Esophageal dysphagia] Onset: 5 Episodic Other gastrointestinal disorders (3 sources) Altered bowel function; Translations: [Other specified symptoms and signs involving the digestive system and abdomen] Onset: 5 04-04-2025 Episodic Other gastrointestinal disorders (1 source) Other specified symptoms and signs involving the digestive system and abdomen; Translations: [Altered bowel function] Onset: 5 Episodic Other liver diseases (20 sources) Steatosis of liver; Translations: [Fatty (change of) liver, not elsewhere classified] Onset: 5 10-28-2024 Chronic Other liver diseases (2 sources) Fatty (change of) liver, not elsewhere classified; Translations: [Other chronic nonalcoholic liver disease] Onset: 5 02-06-2025 Chronic Other lower respiratory disease (8 sources) Restrictive lung disease; Translations: [Other disorders of lung] 10-21-2018 Episodic Other lower respiratory disease (1 source) Cough; Translations: [Cough] 10-15-2021 Episodic Other lower respiratory disease (1 source) Dyspnea; Translations: [Shortness of breath] 12-30-2024 Episodic Other lower respiratory disease (8 sources) Nodule of lung; Translations: [Solitary pulmonary nodule] 03-27-2025 Episodic Other non-traumatic joint disorders (1 source) [...] Chronic Other nutritional; endocrine; and metabolic disorders (8 sources) Body mass index 30+ - obesity; [...] Chronic Other nutritional; endocrine; and metabolic disorders (12 sources) Weight decreased; Translations: [Abnormal weight loss] 03-16-2025 Episodic Other nutritional; endocrine; and metabolic disorders (1 source) Abnormal weight loss; Translations: [Abnormal weight loss] Onset: 5 Episodic Other screening for suspected conditions (not mental disorders or infectious disease) (8 sources) CT of chest abnormal; Translations: [Abnormal findings on diagnostic imaging of other specified body structures] 10-21-2018 Chronic Other skin disorders (8 sources) Cyst ; Translations: [Follicular cyst of the skin and subcutaneous tissue, unspecified] 03-06-2019 Episodic Other skin disorders (8 sources) Sebaceous cyst of skin; Translations: [Sebaceous cyst] 02-25-2019 Episodic Other upper respiratory disease (20 sources) Allergic rhinitis; Translations: [Allergic rhinitis, unspecified] Onset: 4 03-31-2014 Chronic Pneumonia (11 sources) Pneumonia, unspecified organism; Translations: [Pneumonia] Onset: 8 10-21-2018 Episodic Residual codes; unclassified (20 sources) Restlessness and agitation; Translations: [Restlessness and agitation] Onset: 4 03-31-2014 Chronic Residual codes; unclassified (20 sources) Obstructive sleep apnea syndrome; Translations: [Obstructive sleep apnea (adult) (pediatric)] Onset: 7 12-18-2017 Chronic Comment on above: on autopap, treated by [facility] neurology Residual codes; unclassified (1 source) Obstructive sleep [...] 5 Episodic Respiratory failure; insufficiency; arrest (adult) (8 sources) Acute respiratory failure; Translations: [Acute respiratory failure, unspecified whether with hypoxia or hypercapnia] 10-21-2018 Episodic Secondary malignancies (17 sources) Secondary malignant neoplasm of bone; Translations: [Secondary malignant neoplasm of bone] 03-16-2025 Chronic Secondary malignancies (10 sources) Secondary malignant neoplasm of peritoneum; Translations: [Secondary malignant neoplasm of retroperitoneum and peritoneum] 03-27-2025 Chronic Secondary malignancies (2 sources) Secondary malignant neoplasm of bone; Translations: [Secondary malignant neoplasm of bone] Onset: 5 Chronic Secondary malignancies (1 source) Secondary malignant neoplasm of retroperitoneum and peritoneum; Translations: [Secondary malignant neoplasm of retroperitoneum and peritoneum] Onset: 5 Chronic Skin and subcutaneous tissue infections (6 sources) Cellulitis of skin; Translations: [Cellulitis, unspecified] Episodic Thyroid disorders (20 sources) Multinodular goiter; Translations: [Nontoxic multinodular goiter] Onset: 8 12-22-2020 Chronic Unclassified (2 sources) Sleep apnea, unspecified; Translations: [Sleep apnea, unspecified] Onset: 8 Unclassified (2 sources) Other specified postprocedural states; Translations: [Other specified postprocedural states] Onset: 7 Unclassified (20 sources) Mass of body structure; Translations: [Lump] Onset: 0 11-16-2019 Unclassified (1 source) Acute pain of right shoulder 12-20-2024 Unclassified (13 sources) Colonoscopy [facility] Onset: 5 03-19-2025 Unclassified (5 sources) At your scheduled appointment time Unclassified (4 sources) K31.89 - Other diseases of stomach and duodenum,C79.51 - Secondary malignant neoplasm of bone,C80.0 - Disseminated malignant neoplasm, unspecified,C16.9 - Malignant neoplasm of stomach, unspecified Unclassified (1 source) Class 2 severe obesity with serious comorbidity and body mass index (BMI) of 36.0 to 36.9 in adult, unspecified obesity type (HCC); Translations: [Class 2 severe obesity with serious comorbidity and body mass index (BMI) of 36.0 to 36.9 in adult, unspecified obesity type (HCC)] Onset: 5 Unclassified (2 sources) Malignant neoplasm metastatic to bone Unclassified (2 sources) Malignant neoplasm of stomach Viral infection (6 sources) Zoster without complications; [...] (19 sources) Drug therapy finding; Translations: [Other half-way (current) drug therapy] Onset: 09-26-2018 09-26-2018 Episodic Other aftercare (1 source) Other local [employer] (current) drug therapy; Translations: [Medication management] Onset: 07-28-2020 Episodic Other and unspecified benign neoplasm (20 sources) History of polyp of colon; Translations: [Personal history of colonic polyps] Onset: 03-31-2014 11-16-2019 Episodic Other circulatory disease (1 source) Other specified symptoms and signs involving the circulatory and respiratory systems; Translations: [Abnormal lung sounds] Onset: 12-30-2024 Episodic Other connective tissue disease (19 sources) [...] Onset: 09-23-2023 12-06-2023 Episodic Other liver diseases (20 sources) Alkaline phosphatase raised; Translations: [Abnormal levels of other serum enzymes] Onset: 12-30-2024 10-25-2024 Episodic Other liver diseases (1 source) Abnormal levels of other serum enzymes; Translations: [Elevated alkaline phosphatase level] Onset: 12-20-2024 Episodic Other non-traumatic joint disorders (20 sources) Joint stiffness; Translations: [Stiffness of right knee, not elsewhere classified] Onset: 10-21-2020 Resolved: 12-22-2020 12-22-2020 Episodic Other non-traumatic joint disorders (20 sources) Pain in right shoulder; Translations: [Pain in joint, shoulder region] Onset: 06-12-2024 05-21-2024 Episodic Other screening for suspected conditions (not mental disorders or infectious disease) (20 sources) Prolonged QT interval; Translations: [Abnormal electrocardiogram [ECG] [EKG]] Onset: 04-20-2021 04-20-2021 Episodic Other skin disorders (20 sources) Foot callus; Translations: [Corns and callosities] Onset: 12-30-2024 12-30-2024 Episodic Residual codes; unclassified (20 sources) Family history of malignant neoplasm of gastrointestinal tract; Translations: [Family history of malignant neoplasm of digestive organs] Onset: 03-31-2014 11-16-2019 Episodic Results Test Name Value Interpretation Reference Range Facility Surgery Visit Reporton 04-07 Surgery Visit Report [facility] [address] [place] [address] OFFICE VISIT Date of Service: 04/07/25 MR#: [id number] Acct: [id number] Name: BIANCA DELAROSA Rep #: [id number] : 1975 Provider: Dr. Maranda borges MD Age/Sex: 49/M Location: [facility] Status: Signed Intake Vital Signs 03/27/25 15:32 04/07/25 13:53 Height 6 ft 2 in 6 ft 2 in Weight: 261 lb BMI 33.5 BP 121/79 H Blood Pressure Location Rt brachial Position Sitting Respiration 17 Pulse 82 Pulse Source Monitor Pulse Oximetry (%) 100 Oxygen Delivery Method room air Intake Visit Reasons: PORT PLACEMENT Chief Complaint: port placement Is patient in pain?: No Allergies citalopram Allergy (Unknown, Verified 04/07/25 13:54) Unknown venlafaxine Allergy (Unknown, Verified 04/07/25 13:54) Unknown metoclopramide (From Reglan) Allergy (Verified 04/07/25 13:54) weirds me out sertraline (From Zoloft) Allergy (Verified 04/07/25 13:54) sexual side effects topiramate (From Topamax) Allergy (Verified 04/07/25 13:54) Unknown Medications ???Medication ???Instructions ???Recorded ???Confirmed ???Type esomeprazole magnesium 40 mg 40 mg PO QHS gerd 10/10/17 5 History capsule,delayed release fenofibrate 50 mg capsule 54 mg PO DAILY cholesterol 8 04/07/25 History multivitamin 1 ea PO DAILY supplement 10/10/17 04/07/25 History metformin 500 mg tablet 1,000 mg PO BID diabetes 03/22/18 04/07/25 History doxepin 10 mg capsule 10 mg PO QHS insomnia 10/20/18 History olanzapine 2.5 mg tablet 2.5 mg PO QHS insomnia 10/20/18 History zonisamide 25 mg capsule 25 mg PO DAILY unknown 10/20/18 History buspirone 15 mg tablet mg PO BID anxiety 04/14/23 5 History duloxetine 60 mg capsule,delayed mg PO DAILY depression 04/14/23 History release insulin lispro protamine-lispro subcut Type 2 DM 04/14/23 04/07/25 History 100 unit/mL (75-25) subcutaneous pen atorvastatin 80 mg tablet 80 mg PO DAILY hypercholestremia 0 03/16/25 04/07/25 History dexmethylphenidate 20 mg 20 mg PO DAILY on hold 03/16/25 History capsule,extended release -59 duloxetine 30 mg capsule,delayed 30 mg PO DAILY depression 03/16/25 04/07/25 History release ferrous sulfate 325 mg (65 mg 325 mg PO BID anemia 03/16/25 06/ 0 History iron) tablet fluticasone propionate 50 1 spray NASAL DAILY PRN allergic 0 03/21/25 04/07/25 Rx mcg/actuation nasal symptoms #0 grams spray,suspension metoclopramide HCl 10 mg tablet 10 mg PO TID #30 tabs 03/21/25 Rx (Reglan) ondansetron HCl 8 mg tablet 8 mg PO Q6H PRN PRN nausea and 04/07/25 Rx vomiting #40 tabs PFSH Medical History (Updated 04/07/25 @ 13:53 by Kayla Ross) Weight loss Symptomatic anemia Carcinomatosis Gastric mass Anemia Lung nodule 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 History of rectal abscess Multiple thyroid nodules Restrictive airway disease Abnormal chest CT Pneumonia Acute respiratory failure Shortness of breath Community acquired pneumonia Chronic headache Acute respiratory failure with hypoxia GERD (gastroesophageal reflux disease) Anxiety and depression Diabetes mellitus, type II Obesity (BMI 30-39.9) HLD (hyperlipidemia) MIKE (obstructive sleep apnea) Surgical History (Updated 03/29/25 @ 00:01 by Justin Hampton) Hx of drainage of abscess ( 04/2023) Hx of appendectomy Hx of tonsillectomy Family History Father Colon cancer at age 53 Heart disease Myocardial infarction Social History household members: spouse housing: house current occupational status: employed 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 Patient has been with oncology tomorrow unsure of exact date for start of treatment. ROS General General: Yes weight change; No appetite, fatigue, colon cancer, breast cancer or weakness HEENT HEENT: No difficulty swallowing, eye injury, eye surgery, swollen glands or hoarseness Endo Endocrine: Yes diabetes mellitus; No thyroid disease, thyroid cancer, Hair loss, heat intolerance or cold intolerance Skin Skin: No rash or changing moles Musc Musculoskeletal: No back problems, arthritis, rheumatoid ar (more content not included)... Normal [facility] CBC W Auto Differential pane l (Bld)on 04-04-2025 Basophils (Bld) [#/Vol] 0.07 10*3/uL [facility] Basophils/100 WBC (Bld) 0.8 % [facility] Differential cell count method Nom (Bld) Auto [facility] Eosinophils (Bld) [#/Vol] 0.19 10*3/uL [facility] Eosinophils/100 WBC (Bld) 2.1 % [facility] Erythrocyte distribution width (RBC) [Ratio] 19.3 % High 11.5 - 15.0 % [facility] Hematocrit (Bld) [Volume fraction] 31.8 % Low 39.0 - 51.0 % [facility] Hemoglobin (Bld) [Mass/Vol] 10.4 g/dL Low 13.0 - 17.0 g/dL [facility] Immature granulocytes (Bld) [#/Vol] 0.04 10*3/uL [facility] Immature granulocytes/100 WBC (Bld) 0.4 % [facility] Interpretation and review of laboratory results Abnormal [facility] Lymphocytes (Bld) [#/Vol] 1.93 10*3/uL [facility] Lymphocytes/100 WBC (Bld) 21.5 % [facility] MCH (RBC) [Entitic mass] 25.9 pg Low 26.0 - 34.0 pg [facility] MCHC (RBC) [Mass/Vol] 32.7 g/dL 30.5 - 36.0 g/dL [facility] MCV (RBC) [Entitic vol] 79.3 fL Low 80.0 - 100.0 fL [facility] Monocytes (Bld) [#/Vol] 0.56 10*3/uL NINF [facility] Monocytes/100 WBC (Bld) 6.2 % [facility] Neutrophils (Bld) [#/Vol] 6.18 10*3/uL [facility] Neutrophils/100 WBC (Bld) 69 % [facility] Nucleated RBC (Bld) [#/Vol] NINF [facility] Nucleated RBC/100 WBC (Bld) [Ratio] 0 % /100 WBC [facility] Platelet mean volume (Bld) [Entitic vol] 11.2 fL 9.0 - 12.7 fL [facility] Platelets (Bld) [#/Vol] 453 10*3/uL High [facility] RBC (Bld) [#/Vol] 4.01 10*6/uL Low 4.20 - 6.0 0 m/uL [facility] WBC (Bld) [#/Vol] 8.97 10*3/uL [facility] Basophils (Bld) [#/Vol] 0.07 10*3/uL Normal <0.11 [facility] Comment on above: Order Comment: Speci men Type: BLOOD SPECIMENOrdering Facility: [facility] Address: [address] [place], [place] [id number] Performed By: #### 5 7021-8 ####[facility] IRINA [facility]ITALLISA [id number] [place] [id number] [place] [address] [place] Basophils/100 WBC (Bld) 0.8 % Normal [facility] Comment on above: Order Comment: Speci men Type: BLOOD SPECIMENOrdering Facility: [facility] Address: [address] [place] [address] Performed By: #### 5 7021-8 ####[facility] TEREZAPUSHPALIA [id number] [place] [address] [place] Differential cell count method Nom (Bld) Auto Normal [facility] Comment on above: Order Comment: Speci men Type: BLOOD SPECIMENOrdering Facility: [facility] Address: [address] [place] [address] Performed By: #### 5 7021-8 ####[facility] [id number] [place] [address] [place] Eosinophils (Bld) [#/Vol] 0.19 10*3/uL Normal <0.46 [facility] Comment on above: Order Comment: Speci men Type: BLOOD SPECIMENOrdering Facility: [facility] Address: [address] [place] [address] Performed By: #### 5 7021-8 ####[facility] [id number] [place] [address] [place] Eosinophils/100 WBC (Bld) 2.1 % Normal [facility] Comment on above: Order Comment: Speci men Type: BLOOD SPECIMENOrdering Facility: [facility] Address: [address] [place] [address] Performed By: #### 5 7021-8 ####[facility] [id number] [place] [address] [place] Erythrocyte distribution width (RBC) [Ratio] 19.3 % High 11.5-15.0 [facility] Comment on above: Order Comment: Speci men Type: BLOOD SPECIMENOrdering Facility: [facility] Address: [address] [place] [address] Performed By: #### 5 7021-8 ####[facility] [id number] [place] [address] [place] Hematocrit (Bld) [Volume fraction] 31.8 % Low 39.0-51.0 [facility] Comment on above: Order Comment: Speci men Type: BLOOD SPECIMENOrdering Facility: [facility] Address: [address] [place] [address] Performed By: #### 5 7021-8 ####[facility] [id number] [place] [address] [place] Hemoglobin (Bld) [Mass/Vol] 10.4 g/dL Low 13.0-17.0 [facility] Comment on above: Order Comment: Speci men Type: BLOOD SPECIMENOrdering Facility: [facility] Address: [address] [place] [address] Performed By: #### 5 7021-8 ####[facility] [id number] [place] [address] [place] Immature granulocytes (Bld) [#/Vol] 0.04 10*3/uL Normal <0.10 [facility] Comment on above: Order Comment: Speci men Type: BLOOD SPECIMENOrdering Facility: [facility] Address: [address] [place] [address] Performed By: #### 5 7021-8 ####[facility] [id number] [place] [address] [place] Immature granulocytes/100 WBC (Bld) 0.4 % Normal [facility] Comment on above: Order Comment: Speci men Type: BLOOD SPECIMENOrdering Facility: [facility] Address: [address] [place] [address] Performed By: #### 5 7021-8 ####[facility]ITALNCLIA [id number] [place] [address] [place] Lymphocytes (Bld) [#/Vol] 1.93 10*3/uL Normal 1.00-4.00 [facility] Comment on above: Order Comment: Speci men Type: BLOOD SPECIMENOrdering Facility: [facility] Address: [address] [place] [address] Performed By: #### 5 7021-8 ####[facility] [id number] [place] [address] [place] Lymphocytes/100 WBC (Bld) 21.5 % Normal [facility] Comment on above: Order Comment: Speci men Type: BLOOD SPECIMENOrdering Facility: [facility] Address: [address] [place] [address] Performed By: #### 5 7021-8 ####[facility] HOSPITALNCSHRINERS HOSPITALS FOR CHILDREN [id number] [place] [address] [place] MCH (RBC) [Entitic mass] 25.9 pg Low 26.0-34.0 [facility] Comment on above: Order Comment: Speci men Type: BLOOD SPECIMENOrdering Facility: [facility] Address: [address] [place] [address] Performed By: #### 5 7021-8 ####[facility] [id number] [place] [address] [place] MCHC (RBC) [Mass/Vol] 32.7 g/dL Normal 30.5-36.0 [place] Comment on above: Order Comment: Speci men Type: BLOOD SPECIMENOrdering Facility: [facility] Address: [address] [place] [address] Performed By: #### 5 7021-8 ####[facility] [id number] [place] [address] [place] MCV (RBC) [Entitic vol] 79.3 fL Low 80.0-100.0 [facility] Comment on above: Order Comment: Speci men Type: BLOOD SPECIMENOrdering Facility: [facility] Address: [address] [place] [address] Performed By: #### 5 7021-8 ####[facility] MILLWNCLIA [id number] [place] [address] [place] Monocytes (Bld) [#/Vol] 0.56 10*3/uL Normal <0.87 [facility] Comment on above: Order Comment: Speci men Type: BLOOD SPECIMENOrdering Facility: [facility] Address: [address] [place] [address] Performed By: #### 5 7021-8 ####[facility] MILLWNCLIA [id number] [place] [address] [place] Monocytes/100 WBC (Bld) 6.2 % Normal [facility] Comment on above: Order Comment: Speci men Type: BLOOD SPECIMENOrdering Facility: [facility] Address: [address] [place] [address] Performed By: #### 5 7021-8 ####[facility]ITALNCLIA [id number] [place] [address] [place] Neutrophils (Bld) [#/Vol] 6.18 10*3/uL Normal 1.45-7.50 [facility] Comment on above: Order Comment: Speci men Type: BLOOD SPECIMENOrdering Facility: [facility] Address: [address] [place] [address] Performed By: #### 5 7021-8 ####[facility] MILLTOWNCLIA [id number] [place] [address] [place] Neutrophils/100 WBC (Bld) 69.0 % Normal [facility] Comment on above: Order Comment: Speci men Type: BLOOD SPECIMENOrdering Facility: [facility] Address: [address] [place] [address] Performed By: #### 5 7021-8 ####[facility] MILLWNCLIA [id number] [place] [address] [place] Nucleated RBC (Bld) [#/Vol] 10*3/uL Normal <0.01 [facility] Comment on above: Order Comment: Speci men Type: BLOOD SPECIMENOrdering Facility: [facility] Address: [address] [place] [address] Performed By: #### 5 7021-8 ####[facility] HOSPITALLurdes [id number] [place] [address] [place] Nucleated RBC/100 WBC (Bld) [Ratio] 0.0 /100 WBC Normal [facility] Comment on above: Order Comment: Speci men Type: BLOOD SPECIMENOrdering Facility: [facility] Address: [address] [place] [address] Performed By: #### 5 7021-8 ####[facility] HOSPITALNCLILurdes [id number] [place] [address] [place] Platelet mean volume (Bld) [Entitic vol] 11.2 fL Normal 9.0-12.7 [facility] Comment on above: Order Comment: Speci men Type: BLOOD SPECIMENOrdering Facility: [facility] Address: [address] [place] [address] Performed By: #### 5 7021-8 ####[facility]ITALNCLIA [id number] [place] [address] [place] Platelets (Bld) [#/Vol] 453 10*3/uL High 150-400 [facility] Comment on above: Order Comment: Speci men Type: BLOOD SPECIMENOrdering Facility: [facility] Address: [address] [place] [address] Performed By: #### 5 7021-8 ####[facility]ITALNCLIA [id number] [place] [address] [place] RBC (Bld) [#/Vol] 4.01 10*6/uL Low 4.20-6.00 [facility] Comment on above: Order Comment: Speci men Type: BLOOD SPECIMENOrdering Facility: [facility] Address: [address] [place] [address] Performed By: #### 5 7021-8 ####[facility]ITALNCLIA [id number] [place] [address] [place] WBC (Bld) [#/Vol] 8.97 10*3/uL Normal 3.70-11.00 [facility] Comment on above: Order Comment: Speci men Type: BLOOD SPECIMENOrdering Facility: [facility] Address: [address] [place] [address] Performed By: #### 5 7021-8 ####[facility] HOSPITALNCA [id number] [place] [address] [place] CNOVon 04-04-2025 CNOV Normal [facility] Ferritin SerPl-mCncon 2024 Ferritin [Mass/Vol] 111.0 ng/mL Normal 30.3-565.7 [facility] Comment on above: Order Comment: Speci men Type: BLOOD SPECIMENOrdering Facility: [facility] Address: [address] [place] [address] Performed By: #### 5 0190-8, 2-9, 6-4, 2283-8 ####[facility] LABCLIA [id number] [place] [address] [place] Folate SerPl-mCncon 04-04-20 25 Folate [Mass/Vol] 10.1 ng/mL Normal >4.7 [facility] Comment on above: Order Comment: Speci men Type: BLOOD SPECIMENOrdering Facility: [facility] Address: [address] [place] [address] Performed By: #### 5 0190-8, 2132-9, 6-4, 2283-8 ####[facility] LABCLIA [id number] [address] [address] [place] Iron and Iron binding capaci ty panelon 04-04-2025 Iron [Mass/Vol] 17 ug/dL Low 41-186 [facility] Comment on above: Order Comment: Speci men Type: BLOOD SPECIMENOrdering Facility: [facility] Address: [address] [place] [address] Performed By: #### 5 0190-8, 9, 2276-01, 2284-05 ####[facility] LABIA [id number] [place] [id number] [place] Iron binding capacity [Mass/Vol] 303 ug/dL Normal 232-386 [facility] Comment on above: Order Comment: Speci men Type: BLOOD SPECIMENOrdering Facility: [facility] Address: [address] [place] [address] Performed By: #### 5 0190-8, 2132-06, 2276-01, 2284-05 ####[facility] HOSPITALIA [id number] [place] [id number] [place] Iron/TIBC [Molar ratio] 5.6 % Low 15.0-57.0 [facility] Comment on above: Order Comment: Speci men Type: BLOOD SPECIMENOrdering Facility: [facility] Address: [address] [place] [address] Performed By: #### 5 0190-8, 9, 2276-01, 2284-05 ####[facility] LABIA [id number] [place] [id number] [place] Vit B12 SerPl-mCncon 025 Cobalamin (Vitamin B12) [Mass/Vol] 396 pg/mL Normal 232-1245 [facility] Comment on above: Order Comment: Speci men Type: BLOOD SPECIMENOrdering Facility: [facility] Address: [address] [place] [address] Performed By: #### 5 0190-8, 2132-9, 2276-4, 2284-8 ####[facility] LABCLISAIAH [id number] [place] [id number] [place] PET/CT Tumor Base -Thigh Ini ton 04-01-2025 PET/CT Tumor Base -Thigh Init [facility] Services [address] [place], [place] [address] PET/CT Tumor Base -Thigh Init MR#: [id number] Acct: [id number] Name: BIANCA DELAROSA Rep #: [id number] : 1975 M 49 From: Bianca Blanton PCP: Dr. 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 Multiple sclerotic osseous lesions. TECHNIQUE: Following the intravenous administration of radionucleotide, image acquisition on a dedicated PET/CT unit was performed at one hour post injection. A preliminary CT study encompassing the Skull base, neck, chest, abdomen, pelvis, and proximal thighs was performed for purposes of attenuation correction and anatomic localization. The proximal thighs were also included. The patient's blood glucose level was 152 mg/dL (allowable range: 50-180 mg/dL). RADIOPHARMACEUTICAL: 14.72 mCi 18F-FDG (Fluorodeoxyglucose F18) IV was injected into he patient. RADIATION DOSE SUMMARY: Effective Dose: Approximately 7 mSv for a standard whole-body PET scan Organ Doses: Varies by organ, with higher doses typically to the bladder, liver, and brain COMPARISON: COMPARISON FROM CT, PET OR OTHER PERTINENT EXAMS: CT abdomen and pelvis from 03/19/2025.. FINDINGS: Physiologic uptake: There may be expected metabolic uptake within the brain, tongue and floor of the mouth and larynx/vocal cords, heart, ela (many normal individuals have hilar uptake in less than 3 nodes with mildly avid hilar nodes less than 2.7 SUV), liver and spleen, system, and GI tract and symmetric muscle uptake. FDG AVID AND NON-AVID LESIONS. Reported avid SUV values (g/mL*) are maximum SUV. NECK: There are no significant neck abnormalities. CHEST: Chest wall- There are no significant chest wall abnormalities. Axilla- There are no significant axillary abnormalities. Lung parenchyma- There are no significant lung parenchyma abnormalities. Mediastinum- There are no significant hilar or mediastinal adenopathy. Pleura- There are no significant pleural abnormalities. ABDOMEN: Stomach- A pyloric stent is in place. Mild areas of increased metabolic activity are seen in the region of the pylorus SUV max of 4.2. This is consistent with the known malignancy at this site. Right upper quadrant omental stranding is similar to the prior study of 03/19/2025. No hypermetabolic adenopathy is seen. Liver-diffuse fatty infiltration of the liver is noted. No hypermetabolic focus is seen. Spleen- No significant abnormalities. Pancrease- No significant abnormalities. Kidneys- No significant abnormalities. Bowel- Normal bowel activity is otherwise noted. Spine- No significant abnormalities. PELVIS: Bowel- Normal physiologic bowel activity is identified. Masses- There are no pelvic masses. Bones- Very extensive areas low-level metabolic activity are seen throughout most of the axial and appendicular skeleton, including the proximal femora and the spine. This includes numerous sclerotic foci, including throughout the spine and bilateral pelvis. PET/PET/CT Tumor Base -Thigh Init IMPRESSION: FDG avid- 1. In the region of the pylorus, increased metabolic activity is seen, with SUV max of 4.2. This is consistent with the known malignancy at this site. 2. Low-level increased metabolic activity seen throughout most of the axial and appendicular skeleton, including proximal femora and spine. Other: 1. Pyloric stent in place. 2. Right upper quadrant omental stranding is similar to the CT 03/19/2025. 3. Diffuse fatty infiltration of the liver. Please note the low-dose CT scan was performed to facilitate PET image reconstruction and anatomic localization and does not replace a diagnostic CT. Any diagnostic CT requested and performed at the time of the PET will be reported separately. Reading Location: [place] [address] CC: Dr. Humberto Jackson MD; Dr. Cary Chandra MD Drill Setup Operator: Signed [facility] 03-31-2025 [facility] Telephone (AGGENS4) -- [place] Dany ([id number]) 1975 M Date Time Provider Department 03/31/25 JENN BOWMAN4 During your visit today, we recorded the following information about you: RoyShelly mir 03/31/2025 8:52 AM Signed Patient called in to cancel all procedures and appointments. Allergies As of Date: 03/31/2025 Noted Allergy Reaction TOPAMAX (TOPIRAMATE) 02/04/2014 1 - Mental Status Change Comments: Unable to remember anything CELEXA (CITALOPRAM HYDROBROMIDE) 10/22/2014 14 - Other: See Comments Comments: uneffective EFFEXOR (VENLAFAXINE ANALOGUES) 10/22/2014 14 - Other: See Comments Comments: Sexual side affect REGLAN (METOCLOPRAMIDE HCL) 01/24/2007 14 - Other: See Comments Comments: Can only tolerate 5 mg dose. The 10 mg tabs causes him to be restless and mentally off. ZOLOFT (SERTRALINE HCL) 10/22/2014 14 - Other: See Comments Comments: drowsy Date Reviewed: 03/10/2025 Reviewed by: Nelda Quigley APRN.[facility] - Fully Assessed Reason for Visit: Appointment [186] Prescriptions as of 03/31/2025 - dexmethylphenidate XR (FOCALIN XR) 20 mg biphasic capsule Take 1 capsule by mouth once daily for 30 days. - ferrous sulfate 325 mg (65 mg iron) tablet Take 1 tablet by mouth two times a day with meals. - busPIRone (BUSPAR) 15 mg tablet Take one tab by mouth twice a day. - metFORMIN (GLUCOPHAGE) 500 mg tablet TAKE 2 TABLETS BY MOUTH TWO TIMES A DAY WITH MEALS. - methylphenidate CD (METADATE CD) 20 mg [...] mouth once daily. - Blood-Glucose Sensor (FREESTYLE DIANA 3 SENSOR) agnes USE ONE SENSOR EVERY [...] for a 90 day supply. - Insulin Carpio, Disposable, (DROPLET PEN NEEDLE) 31 gauge x 3/16 Use 4 PEN NEEDLES to inject MEDICATION subcutaneously daily - zonisamide (ZONEGRAN) 25 mg capsule Take 1 capsule by mouth once daily. - multivitamin tablet Take 1 tablet by mouth once daily. Problem List As Of Date 03/31/2025 Noted Resolved Other joint derangement, not elsewhere [...] *09/26/2018 GERD without esophagitis [K21.9] 09/26/2018 Lump [AME2162] 11/16/2019 ISABELLA (generalized anxiety disorder) [F41.1] 06/22/2020 [...] [R74.8] 12/30/2024 Callus of foot [L84] 12/30/2024 Vitamin B12 deficiency [E53.8] 03/10/2025 History of gastric ulcer [Z87.11] 03/19/2025 Gastric cancer (HCC) [C16.9] 03/28/2025 Encounter Status: (more content not included)... Normal [facility] SURG PATH REQUESTon 03-31-20 Case Report [facility] Comment on above: Result Comment: Surg ical Pathology Report Case: [id number] Authorizing Provider: TARI [facility] Collected: 03/31/2025 12:54 PM Ordering Location[facility] Received: 03/31/2025 12:56 PM [facility] Pathologist: GABINO Reis Specimen: SURG PATH, PD-L1 IHC, HER2 IHC testing; Stomach, Mass, Biopsy Performed By: #### S URGP #### [facility] (DEFAULT) [address] [place] [address] Clinical History [facility] PD-L1 IHC and HER2 IHC testing on the paraffin block received from [facility] with a request to Reflex to FISH if needed. Pre-Op Diagnosis: gastric mass, symptomatic anemia, weight loss, microcytic anemia. [facility] Comment on above: Performed By: #### S URGP #### [facility] (DEFAULT) [address] [place] [address] Gross Description [facility] Comment on above: Result Comment: The following material(s) are received from [facility], [address] [place] [address], with an identifying surgical pathology report: one (1) paraffin block marked B1, labeled [id number]. The paraffin block that was received is submitted to the [facility] histology/IHC laboratory for recutting and additional staining:PD-L1 IHC, HER2 IHC Quant. Material with be returned upon completion of review. Grosser for this case was: Nannette Joel Performed By: #### S URGP #### [facility] (DEFAULT) [address] [place] [id number] Microscopic Description A microscopic examination was performed. Normal [facility] Comment on above: Performed By: #### S URGP #### [facility] (DEFAULT) [address] [place] [address] Pathologic Diagnosis Normal [facility] Comment on above: Result Comment: Outs nga block: [id number] (03/17/2025) B. Stomach, Mass, Biopsy: PD-L1 IHC 22C3 PharmDx* Result Expression Level: Positive for PD-L1 expression (CPS greater than or equal to 1) Combined Positive Score (CPS): 15 HER2 Immunohistochemistry: Result: Negative (score 1+). All controls show appropriate reactivity. HER2 protein expression in gastric and GE junction adenocarcinomas is evaluated by manual quantitative immunohistochemistry on formalin-fixed, paraffin-embedded tissues, using clone 4B5 (rabbit monoclonal, Punchey) on a Punchey auto-stainer. Membrane staining of tumor cells is evaluated and graded as follows: 0 (negative), no immunoreactivity(biopsy) or membranous immunoreactivity in < 10% of tumor cells (resection); 1+ (negative) tumor cell cluster (5 cells) with faint immunoreactivity regardless of % cells stained (biopsy) or faint staining in > 10% of tumor cells but only a portion of the membrane is positive (resection); 2+ (equivocal), tumor cell cluster with weak to moderate complete, basolateral or lateral membrane immunoreactivity regardless of % cells (biopsy) or complete, basolateral or lateral membrane staining in >10% of tumor cells (resection); 3+ (positive), tumor cell cluster with strong complete, basolateral or lateral membrane staining regardless of % cells stained (biopsy) or strong complete, basolateral, or lateral membrane staining in > 10% of cells (resection) . Lancet 28:376, 2010, [place] 457:299-307, 2010). All immunohistochemistry, in situ hybridization, and histochemical tests were developed by and are performed at the [facility], [address] [place] [address], [place] [address]. All tests reported here, except those addressing HER2/jd overexpression as a predictive marker, have not been cleared by or approved by the [place] Food and Drug Administration (FDA). The laboratory is regulated under CLIA as qualified to perform high-complexity testing. The tests are used for clinical purposes. They should not be regarded as investigational or for research. All controls show appropriate reactivity. All immunohistochemistry, in situ hybridization, and histochemical tests were developed by and are performed at the [facility], [address] [facility], [place] [address]. All Immunofluorescent (IF) tests were developed by and are performed at the [facility], [address] [place] [address]. All tests reported here, except those addressing HER2 and PD-L1 expression as predictive markers, have not been cleared by or approved by the [place] Food and Drug Administration (FDA). The laboratory is regulated under CLIA as qualified to perform high-complexity testing. The tests are used for clinical purposes. They should not be regarded as investigational or for research. at 1336 EDT Performed By: #### S URGP #### [facility] (DEFAULT) [address] [place] [address] Professional Interpretation Performed at: Normal [facility] Comment on above: Result Comment: [facility] For Immediate Release to Patient's [facility]? Yes [address] [place] [address] Performed By: #### S URGP #### [facility] (DEFAULT) [address] [place] [address] Folates, RBCon 03-30-2025 Fol.,Hemolysate 459.0 ng/mL Normal Not Estab. [facility] Comment on above: Performed By: #### L 501.080 #### [facility] [address] [place], [address] Folate, RBC 1334 ng/mL Normal >498 [facility] Comment on above: Result Comment: Perf ormed at: - [facility] [id number] Account Services Representative: Omar Otero PhD, Phone: [phone] Performed By: #### L 501.080 #### [facility] [address] [place], [address] Hematocrit (Bld) [Volume fraction] 34.4 % Low 37.5-51.0 [facility] Comment on above: Performed By: #### L 501.080 #### [facility] [address] [place], [place], [id number] Absolute lymphocyte countOrd ered By: [facility] Chandra on 03-27-2025 Lymphocytes Auto (Unsp spec) [#/Vol] 2.27 10*3/uL 0.83-4.51 [facility] Absolute neutrophil countOrd ered By: [facility] Chandra on 03-27-2025 Neutrophils (Bld) [#/Vol] 4.5 10*3/uL 2.0-7.7 [facility] Anion gap in Serum or Plasma Ordered By: [facility] Chandra on 03-27-2025 Anion gap [Moles/Vol] 13 mmol/L - [facility] Automated lymphocyte count a s percentage of total leukocytesOrdered By: [facility] Chandra on 03-27-2025 Lymphocytes/100 WBC Auto (Unsp spec) 30.0 % [facility] BUN/creatinine ratioOrdered By: [facility]azal on 03-27-2025 Urea nitrogen/Creatinine [Mass ratio] 12.2 mg/mg - [facility] Basophil percentageOrdered B y: [facility] Chandra on 03-27-2025 Basophils/100 WBC (Bld) 0.9 % 0- [facility] Bilirubin, totalOrdered By: [facility] Prateek on 03-27-2025 Bilirubin [Mass/Vol] mg/dL 0.00-1.30 [facility] CBC W/Diff, Automatedon 03-09 Absolute Lymph 2.27 X10 3/uL Normal 0.83-4.51 [facility] Comment on above: Performed By: #### L 501.080 #### [facility] [address] [place], [place], [id number] Absolute Neut 4.5 X10 3/uL Normal 2.0-7.7 [facility] Comment on above: Performed By: #### L 501.080 #### [facility] [address] [place], [address] Basophils/100 WBC (Bld) 0.9 % Normal 0-1 [facility] Comment on above: Performed By: #### L 501.080 #### [facility] [address] [place], [address] Eosinophils/100 WBC (Bld) 2.9 % Normal 0-5 [facility] Comment on above: Performed By: #### L 501.080 #### [facility] [address] [place], [address] Erythrocyte distribution width (RBC) [Ratio] 18.0 % High 11.6-14.6 [facility] Comment on above: Performed By: #### L 501.080 #### [facility] [address] [place], [address] Hematocrit (Bld) [Volume fraction] 32.3 % Low 40-54 [facility] Comment on above: Performed By: #### L 501.080 #### [facility] [address] [place], [address] Hemoglobin (Bld) [Mass/Vol] 10.3 g/dL Low 13.0-16.5 [facility] [facility] Comment on above: Performed By: #### L 501.080 #### [facility] [address] [place], [address] IG% 0.400 Normal 0.0-0.9 [facility] Comment on above: Result Comment: IG% - Immature Granulocytes (promyelocytes, myelocytes and metamyelocytes) > 1% indicates that a LEFT SHIFT is Present. Performed By: #### L 501.080 #### [facility] [address] [place], [address] Lymphocytes/100 WBC (Bld) 30.0 % Normal 19-41 [facility] Comment on above: Performed By: #### L 501.080 #### [facility] [address] [place], [address] MCH (RBC) [Entitic mass] 25.4 pg Low 27.0-32.0 [facility] Comment on above: Performed By: #### L 501.080 #### [facility] [address] [place], [address] MCHC (RBC) [Mass/Vol] 31.9 g/dL Low 32-36 [facility] Comment on above: Performed By: #### L 501.080 #### [facility] [address] [place], [address] MCV (RBC) [Entitic vol] 79.6 fL Low 80-94 [facility] Comment on above: Performed By: #### L 501.080 #### [facility] [address] [place], [address] Monocytes/100 WBC (Bld) 6.6 % Normal 0-10 [facility] Comment on above: Performed By: #### L 501.080 #### [facility] [address] [place], [address] Neutrophils/100 WBC (Bld) 59.2 % Normal 47-70 [facility] Comment on above: Performed By: #### L 501.080 #### [facility] [address] [place], [address] Nucleated RBC (Bld) [#/Vol] 0 10*3/uL Normal 0-5 [facility] Comment on above: Performed By: #### L 501.080 #### [facility] [address] [place], [address] Platelet mean volume (Bld) [Entitic vol] 11.5 fL Normal 6.2-12.0 [facility] Comment on above: Performed By: #### L 501.080 #### [facility] [address] [place], [address] Platelets (Bld) [#/Vol] 387 10*3/uL Normal 150-450 [facility] Comment on above: Performed By: #### L 501.080 #### [facility] [address] [place], [address] RBC (Bld) [#/Vol] 4.06 10*6/uL Low 4.6-6.2 [facility] Comment on above: Performed By: #### L 501.080 #### [facility] [address] [place], [address] RDW SD 50.6 fl High 35.1-43.9 [facility] Comment on above: Performed By: #### L 501.080 #### [facility] [address] [place], [address] WBC (Bld) [#/Vol] 7.6 10*3/uL Normal 4.4-11.0 [facility] Comment on above: Performed By: #### L 501.080 #### [facility] [address] [place], [address] Carbon dioxide, total [Moles /volume] in Central venous bloodOrdered By: Cary Chandra on 03-27-2025 CO2 [Moles/Vol] 23.0 mmol/L 21.0-32.0 [facility] Chloride assayOrdered By: Stacy Chandra on 03-27-2025 Chloride [Moles/Vol] 99 mmol/L 98-108 [facility] Comprehensive Metabolic Prof ilon 03-27-2025 Albumin [Mass/Vol] 4.0 g/dL Normal 3.5-5.0 [facility] Comment on above: Performed By: #### L 501.080 #### [facility] [address] [place], [address] Albumin/Globulin [Mass ratio] 1.7 {ratio} Normal 0.9-2.4 [facility] Comment on above: Performed By: #### L 501.080 #### [facility] [address] [place], [address] ALK PHOS 294 U/L High 40-129 [facility] Comment on above: Performed By: #### L 501.080 #### [facility] [address] [place], [address] ALT [Catalytic activity/Vol] 7 U/L Normal <=46 [facility] Comment on above: Performed By: #### L 501.080 #### [facility] [address] [place], [address] AST [Catalytic activity/Vol] 14 U/L Normal <=37 [facility] Comment on above: Performed By: #### L 501.080 #### [facility] [address] [place], [address] BUN/CRE 12.2 RATIO Normal 10-20 [facility] Comment on above: Performed By: #### L 501.080 #### [facility] [address] [place], [address] Calcium [Mass/Vol] 9.0 mg/dL Normal 7.6-11.0 [facility] Comment on above: Performed By: #### L 501.080 #### [facility] [address] [place], [address] Chloride [Moles/Vol] 99 mmol/L Normal 98-108 [facility] Comment on above: Performed By: #### L 501.080 #### [facility] [address] [place], [address] CO2 [Moles/Vol] 23.0 mmol/L Normal 21.0-32.0 [facility] Comment on above: Performed By: #### L 501.080 #### [facility] [address] [place], [address] Creatinine [Mass/Vol] 0.76 mg/dL Normal 0.70-1.20 [facility] Comment on above: Performed By: #### L 501.080 #### [facility] [address] [place], [address] ECRCL 159.30 ml/min Normal 50-250 [facility] Comment on above: Performed By: #### L 501.080 #### [facility] [address] [place], [address] GAP 13 Normal 5-15 [facility] Comment on above: Performed By: #### L 501.080 #### [facility] [address] [place], [address] GFR/1.73 sq M.predicted among non-blacks MDRD (S/P/Bld) [Vol rate/Area] 110 mL/min/{1.73_m2} Normal >60 [facility] Comment on above: Result Comment: mL/m in/1.73m2 CKD-EPI Creatinine Equation (2020) Performed By: #### L 501.080 #### [facility] [address] [place], [address] Globulin (S) [Mass/Vol] 2.4 g/dL Normal 2.2-4.2 [facility] Comment on above: Performed By: #### L 501.080 #### [facility] [address] [place], [address] Glucose [Mass/Vol] 150 mg/dL High 70-99 [facility] Comment on above: Performed By: #### L 501.080 #### [facility] [address] [place], [address] Potassium [Moles/Vol] 3.6 mmol/L Normal 3.3-5.1 [facility] Comment on above: Performed By: #### L 501.080 #### [facility] [address] [place], [address] Sodium [Moles/Vol] 135 mmol/L Normal 133-145 [facility] Comment on above: Performed By: #### L 501.080 #### [facility] [address] [place], [address] T BILI < 0.15 Normal 0.00-1.30 [facility] Comment on above: Performed By: #### L 501.080 #### [facility] [address] [place], [address] T PROT 6.4 g/dL Normal 5.9-8.4 [facility] Comment on above: Performed By: #### L 501.080 #### [facility] [address] [place], [address] Urea nitrogen [Mass/Vol] 9 mg/dL Normal 4-19 [facility] Comment on above: Performed By: #### L 501.080 #### [facility] [address] [place], [address] Eosinophil percentageOrdered By: Cary Chandra on 03-27-2025 Eosinophils/100 WBC (Bld) 2.9 % 0-5 [facility] Erythrocyte distribution wid th ratioOrdered By: Cary Chandra on 03-27-2025 Erythrocyte distribution width (RBC) [Ratio] 18.0 % High 11.6-14.6 [facility] Erythrocyte distribution wid th standard deviationOrdered By: Cary Chandra on 03-27-2025 Erythrocyte distribution width (RBC) [Ratio] 50.6 fl High 35.1-43.9 [facility] Erythrocyte folate measureme nt with hematocritOrdered By: Cary Chandra on 03-27-2025 Hematocrit (Bld) [Volume fraction] 34.4 % Low 37.5-51.0 [facility] Ferritinon 03-27-2025 Ferritin [Mass/Vol] 179 ng/mL Normal 37-417 [facility] Comment on above: Performed By: #### L 501.080 #### [facility] [address] [place], [address] Glomerular filtration rate ( GFR) estimation/1.73 sq m using serum, plasma, or whole bOrdered By: Cary Chandra on 03-27-2025 GFR/1.73 sq M.predicted among non-blacks MDRD (S/P/Bld) [Vol rate/Area] 110 mL/min/{1.73_m2} >60 [facility] Comment on above: mL/min/1.73m2 CKD-EP I Creatinine Equation (2020) Hematocrit Auto (Bld) [Volum e fraction]Ordered By: Cary Chandra on 03-27-2025 Hematocrit (Bld) [Volume fraction] 32.3 % Low 40-54 [facility] Hemoglobin measurementOrdere d By: Cary Chandra on 03-27-2025 Hemoglobin (Bld) [Mass/Vol] 10.3 g/dL Low 13.0-16.5 [facility] Immature granulocytes/100 WB C Auto (Bld)Ordered By: [facility] on 03-27-2025 Immature granulocytes/100 WBC (Bld) 0.400 % 0.0-0.9 [facility] Comment on above: IG% - Immature Granu locytes (promyelocytes, myelocytes and metamyelocytes) > 1% indicates that a LEFT SHIFT is Present. Iron measurement (mass/mass) Ordered By: Cary Chandra on 03-27-2025 Iron (Unsp spec) [Mass/Mass] 27 ug/dL Low 65-175 [facility] Iron+Iron Binding Capacityon 03-27-2025 Iron [Mass/Vol] 27 ug/dL Low 65-175 [facility] Comment on above: Performed By: #### L 501.080 #### [facility] [address] [place], [address] IRON SATURATION 9.0 Normal 9-55 [facility] Comment on above: Performed By: #### L 501.080 #### [facility] [address] [place], [address] TIBC 286 ug/dL Normal 250-450 [facility] Comment on above: Performed By: #### L [id number] #### [facility] [address] [place], [address] UIBC 259 ug/dL Normal 228-428 [facility] Comment on above: Performed By: #### L 501.080 #### [facility] [address] [place], [address] Laboratory - Chemistry and C hemistry - challengeOrdered By: Cary Chandra on 03-27-2025 AST [Catalytic activity/Vol] 14 U/L <38 [facility] MCV (mean corpuscular volume ) determinationOrdered By: Cary Chandra on 03-27-2025 MCV (RBC) [Entitic vol] 79.6 fL Low 80-94 [facility] Mean corpuscular hemoglobin (MCH) determinationOrdered By: [facility] on 03-27-2025 MCH (RBC) [Entitic mass] 25.4 pg Low 27.0-32.0 [facility] Mean corpuscular hemoglobin concentration (MCHC) determinationOrdered By: Cary Chandra on 03-27-2025 MCHC (RBC) [Mass/Vol] 31.9 g/dL Low 32-36 [facility] Mean platelet volume determi nationOrdered By: Cary Chandra on 03-27-2025 Platelet mean volume (Bld) [Entitic vol] 11.5 fL 6.2-12.0 [facility] Monocyte percentageOrdered B y: Cary Chandra on 03-27-2025 Monocytes/100 WBC (Bld) 6.6 % 0-10 [facility] Neutrophil percentageOrdered By: Cary Chandra on 03-27-2025 Neutrophils/100 WBC (Bld) 59.2 % 47-70 [facility] No Panel InformationOrdered By: Cary Chandra on 03-27-2025 Unsaturated Iron Binding Capacity 259 ug/dL 228-428 [facility] Nucleated red blood cell per centageOrdered By: Cary Chandra on 03-27-2025 Nucleated RBC/100 WBC (Bld) [Ratio] 0 % 0-5 [facility] Oncology Visit Reporton 03-09 Oncology Visit Report [facility] [place] [facility] [place] [address] OFFICE VISIT Date of Service: 03/27/25 1529 MR#: [id number] Acct: [id number] Name: BIANCA DELAROSA Rep #: [id number] : 1975 From: Cary Chandra MD Age/Sex: 49/M Location: [facility] Status: Signed HPI Subjective Date of Service 03/27/25 Chief Complaint Stomach cancer History of Present Illness 49-year-old gentleman was hospitalized in [facility] in March 2025 with weeks to a few months increasing fatigue, anorexia, unexplained weight loss, dark stools and was found to be severely anemic with a hemoglobin of 7.2 compared to a baseline of 15.5 in March 2024 and iron deficient with a ferritin of 5. EGD March 17, 2025: Impression: - LA Grade D erosive esophagitis with no bleeding. - Gastroparesis. - A large amount of food (residue) in the stomach with functional gastric outlet obstruction due to lack of accommodation of the distal portion of the stomach - Oozing gastric ulcer with pigmented material. Biopsied. - No gross lesions in the entire examined duodenum. March 14, 2025 CT abdomen and pelvis: IMPRESSION: 1. Mildly distended stomach, secondary to gastric pylorus circumferential wall thickening and resultant luminal narrowing. Findings concerning for an underlying obstructive gastric mass/outlet obstruction. Recommend further evaluation with endoscopy. 2. Multiple prominent-mildly enlarged retroperitoneal nodes. 3. Diffuse nodularity within the anterior mesentery and bilateral paracolic gutters, concerning for peritoneal carcinomatosis. 4. Multiple sclerotic osseous lesions concerning for osseous metastasis. Lung bases: 4 mm right lower lobe nodule March 17, 2025 pathology: MICROSCOPIC DIAGNOSIS A. Stomach, ???mass???, biopsy: - Gastric mucosa with malignant neoplasm (see part B). - Necrosis with abundant fungal organisms. B. Stomach, ???mass???, biopsy: - Gastric mucosa with poorly differentiated adenocarcinoma ??? see note and Comment. - Necrosis with abundant fungal organisms. - IHC negative for H pylori organisms. o Note: IHCs were performed at [facility] and [facility]. o Positive: pancytokeratin, CK7, CDX2. o Negative: CK20, CD45, Chromogranin, Synaptophysin, DOG-1, CD117. o Ki67 appears increased. o The positive CK7 with negative CK20 supports an upper GI primary site. EGD March 20, 2025 ; Impression: - LA Grade D erosive esophagitis with no bleeding. - A large amount of food (residue) in the stomach. - Gastric stenosis was found in the gastric antrum, in the prepyloric region of the stomach and at the pylorus. Prosthesis placed. - No gross lesions in the entire examined duodenum. - No specimens collected. [facility] Medical History (Updated 03/27/25 @ 17:[address] 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 Smoking Status: Never smoker second hand exposure: No alcohol intake: never substance use type: does not use caffeine: Yes what type of physical activity do you participate in: none frequency: does not exercise seatbelt use: always ROS Constitutional Constitutional: Reports systems reviewed and no addt'l complaints, except as documented, anorexia, fatigue, weight loss and other Details: 30 pound weight loss in the past few months Eyes Eyes: Reports systems reviewed and no addt'l complaints, except as documented ENT HEENT: Reports systems reviewed and no addt'l complaints, except as documented; Denies mouth lesions Cardiovascular Cardiovascular: Reports systems reviewed and no addt'l complaints, except as documented; Denies chest pain with activity or edema Respiratory/Chest Respiratory/Chest: Reports systems reviewed and no addt'l complaints, except as documented; Denies cough or dyspnea Gastrointestinal Gastrointestinal: Reports systems reviewed and no addt'l complaints, except (more content not included)... Normal [facility] Platelet countOrdered By: Stacy Chandra on 03-27-2025 Platelets (Bld) [#/Vol] 387 10*3/uL 150-450 [facility] Potassium measurement (mass/ volume)Ordered By: Cary Chandra on 03-27-2025 Potassium (Unsp spec) [Mass/Vol] 3.6 mmol/L 3.3-5.1 [facility] RBC Auto (Bld) [#/Vol]Ordere d By: Cary Chandra on 03-27-2025 RBC (Bld) [#/Vol] 4.06 10*6/uL Low 4.6-6.2 [facility] Retic Panelon 03-27-2025 IM RET FRACTION 22.80 High 3.00-15.90 [facility] Comment on above: Performed By: #### L 501.080 #### [facility] [address] [place], [place], [address] RET-HE 26.6 pg Low 30-35 [facility] Comment on above: Performed By: #### L 501.080 #### [facility] [address] [place], [address] Retic Count 1.86 High 0.5-1.5 [facility] Comment on above: Performed By: #### L 501.080 #### [facility] [address] [place], [address] Reticulocyte hemoglobin equi valent (RET-He) measurementOrdered By: Cary Chandra on 03-27-2025 Hemoglobin (Reticulocytes) [Entitic mass] 26.6 pg Low 30-35 [facility] Reticulocytes Auto (Bld) [#/ Vol]Ordered By: Cary Chandra on 03-27-2025 Reticulocytes/100 RBC (Bld) 1.86 % High 0.5-1.5 [facility] Serum creatinine measurement (mass/volume)Ordered By: Cary Chandra on 03-27-2025 Creatinine [Mass/Vol] 0.76 mg/dL 0.70-1.20 [facility] Serum globulin measurementOr dered By: Cary Chandra on 03-27-2025 Globulin (S) [Mass/Vol] 2.4 g/dL 2.2-4.2 [facility] Serum glucose measurement (m ass/volume)Ordered By: Cary Chandra on 03-27-2025 Glucose [Mass/Vol] 150 mg/dL High 70-99 [facility] Serum or plasma alanine linda otransferase (ALT) measurementOrdered By: Cary Chandra on 03-27-2025 ALT [Catalytic activity/Vol] 7 U/L <47 [facility] Serum or plasma albumin festus urement (mass/volume)Ordered By: Cary Chandra on 03-27-2025 Albumin [Mass/Vol] 4.0 g/dL 3.5-5.0 [facility] Serum or plasma albumin/glob ulin mass ratioOrdered By: Cary Chandra on 03-27-2025 Albumin/Globulin [Mass ratio] 1.7 {ratio} 0.9-2.4 [facility] Serum or plasma alkaline komal sphatase measurementOrdered By: Cary Chandra on 03-27-2025 ALP [Catalytic activity/Vol] 294 U/L High 40-129 [facility] Serum or plasma calcium festus urement (mass/volume)Ordered By: Cary Chandra on 03-27-2025 Calcium [Mass/Vol] 9.0 mg/dL 7.6-11.0 [facility] Serum or plasma ferritin andrey surement (mass/volume)Ordered By: Cary Chandra on 03-27-2025 Ferritin [Mass/Vol] 179 ng/mL 37-417 [facility] Serum or plasma iron saturat ion measurement (mass fraction)Ordered By: Cary Seaykarus on 03-27-2025 Iron saturation [Mass fraction] 9.0 % 9-55 [facility] Serum or plasma urea nitroge n measurement (mass/volume)Ordered By: Cary Prateek on 03-27-2025 Urea nitrogen [Mass/Vol] 9 mg/dL 4-19 [facility] Sodium levelOrdered By: Cornell klein Prateek on 03-27-2025 Sodium [Moles/Vol] 135 mmol/L 133-145 [facility] Total proteinOrdered By: Tapan vidales Prateek on 03-27-2025 Protein [Mass/Vol] 6.4 g/dL 5.9-8.4 [facility] Vitamin B12on 03-27-2025 Cobalamin (Vitamin B12) [Mass/Vol] 494 pg/mL Normal 180-914 [facility] Comment on above: Performed By: #### L 501.080 #### [facility] [address] [place], [place] [address], [address] Vitamin B12 ser/plasOrdered By: Cary Prateek on 03-27-2025 Cobalamin (Vitamin B12) [Mass/Vol] 494 pg/mL 180-914 [facility] White blood cell (WBC) count Ordered By: Cary Prateek on 03-27-2025 WBC (Bld) [#/Vol] 7.6 10*3/uL 4.4-11.0 [facility] Absolute lymphocyte countOrd ered By: Jacky Jaimes on 03-25-2025 Lymphocytes Auto (Unsp spec) [#/Vol] 2.42 10*3/uL 0.83-4.51 [facility] Absolute neutrophil countOrd ered By: Jacky Jaimes on 03-25-2025 Neutrophils (Bld) [#/Vol] 4.9 10*3/uL 2.0-7.7 [facility] Automated lymphocyte count a s percentage of total leukocytesOrdered By: Jacky Jaimes on 03-25-2025 Lymphocytes/100 WBC Auto (Unsp spec) 29.3 % 19-41 [facility] Basophil percentageOrdered B y: Jacky Jaimes on 03-25-2025 Basophils/100 WBC (Bld) 0.7 % 0-1 [facility] CBC W/Diff, Automatedon -10 15-2024 Absolute Lymph 2.42 X10 3/uL Normal 0.83-4.51 [facility] Comment on above: Performed By: #### L 501.080 #### [facility] [address] [place], [address] Absolute Neut 4.9 X10 3/uL Normal 2.0-7.7 [facility] Comment on above: Performed By: #### L 501.080 #### [facility] [address] [place], [address] Basophils/100 WBC (Bld) 0.7 % Normal 0-1 [facility] Comment on above: Performed By: #### L 501.080 #### [facility] [address] [place], [address] Eosinophils/100 WBC (Bld) 3.5 % Normal 0-5 [facility] Comment on above: Performed By: #### L 501.080 #### [facility] [address] [place], [address] Erythrocyte distribution width (RBC) [Ratio] 18.5 % High 11.6-14.6 [facility] Comment on above: Performed By: #### L 501.080 #### [facility] [address] [place], [address] Hematocrit (Bld) [Volume fraction] 34.1 % Low 40-54 [facility] Comment on above: Performed By: #### L 501.080 #### [facility] [address] [place], [address] Hemoglobin (Bld) [Mass/Vol] 10.7 g/dL Low 13.0-16.5 [facility] Comment on above: Performed By: #### L 501.080 #### [facility] [address] [place], [address] IG% 0.400 Normal 0.0-0.9 [facility] Comment on above: Result Comment: IG% - Immature Granulocytes (promyelocytes, myelocytes and metamyelocytes) > 1% indicates that a LEFT SHIFT is Present. Performed By: #### L 501.080 #### [facility] [address] [place], [address] Lymphocytes/100 WBC (Bld) 29.3 % Normal 19-41 [facility] Comment on above: Performed By: #### L 501.080 #### [facility] [address] [place], [address] MCH (RBC) [Entitic mass] 25.2 pg Low 27.0-32.0 [facility] Comment on above: Performed By: #### L 501.080 #### [facility] [address] [place], [address] MCHC (RBC) [Mass/Vol] 31.4 g/dL Low 32-36 [facility] Comment on above: Performed By: #### L 501.080 #### [facility] [address] [place], [address] MCV (RBC) [Entitic vol] 80.4 fL Normal 80-94 [facility] Comment on above: Performed By: #### L 501.080 #### [facility] [address] [place], [address] Monocytes/100 WBC (Bld) 7.3 % Normal 0-10 [facility] Comment on above: Performed By: #### L 501.080 #### [facility] [address] [place], [address] Neutrophils/100 WBC (Bld) 58.8 % Normal 47-70 [facility] Comment on above: Performed By: #### L 501.080 #### [facility] [address] [place], [address] Nucleated RBC (Bld) [#/Vol] 0 10*3/uL Normal 0-5 [facility] Comment on above: Performed By: #### L 501.080 #### [facility] [address] [place], [address] Platelet mean volume (Bld) [Entitic vol] 11.7 fL Normal 6.2-12.0 [facility] Comment on above: Performed By: #### L 501.080 #### [facility] [address] [place], [address] Platelets (Bld) [#/Vol] 396 10*3/uL Normal 150-450 [facility] Comment on above: Performed By: #### L 501.080 #### [facility] [address] [place], [address] RBC (Bld) [#/Vol] 4.24 10*6/uL Low 4.6-6.2 [facility] Comment on above: Performed By: #### L 501.080 #### [facility] [address] [place], [address] RDW SD 51.5 fl High 35.1-43.9 [facility] Comment on above: Performed By: #### L 501.080 #### [facility] [address] [place], [address] WBC (Bld) [#/Vol] 8.3 10*3/uL Normal 4.4-11.0 [facility] Comment on above: Performed By: #### L 501.080 #### [facility] [address] [place], [address] Eosinophil percentageOrdered By: Jacky Jaimes on 03-25-2025 Eosinophils/100 WBC (Bld) 3.5 % 0-5 [facility] Erythrocyte distribution wid th ratioOrdered By: Jacky Jaimes on 03-25-2025 Erythrocyte distribution width (RBC) [Ratio] 18.5 % High 11.6-14.6 [facility] Erythrocyte distribution wid th standard deviationOrdered By: Jacky Jaimes on 03-25-2025 Erythrocyte distribution width (RBC) [Ratio] 51.5 fl High 35.1-43.9 [facility] Hematocrit Auto (Bld) [Volum e fraction]Ordered By: Jacky Jaimes on 03-25-2025 Hematocrit (Bld) [Volume fraction] 34.1 % Low 40-54 [facility] Hemoglobin measurementOrdere d By: Jacky Jaimes on 03-25-2025 Hemoglobin (Bld) [Mass/Vol] 10.7 g/dL Low 13.0-16.5 [facility] Immature granulocytes/100 WB C Auto (Bld)Ordered By: Jacky Jaimes on 03-25-2025 Immature granulocytes/100 WBC (Bld) 0.400 % 0.0-0.9 [facility] Comment on above: IG% - Immature Granu locytes (promyelocytes, myelocytes and metamyelocytes) > 1% indicates that a LEFT SHIFT is Present. MCV (mean corpuscular volume ) determinationOrdered By: Jacky Jaimes on 03-25-2025 MCV (RBC) [Entitic vol] 80.4 fL 80-94 [facility] Mean corpuscular hemoglobin (MCH) determinationOrdered By: Jacky Jaimes on 03-25-2025 MCH (RBC) [Entitic mass] 25.2 pg Low 27.0-32.0 [facility] Mean corpuscular hemoglobin concentration (MCHC) determinationOrdered By: Jacky Jaimes on 03-25-2025 MCHC (RBC) [Mass/Vol] 31.4 g/dL Low 32-36 [facility] Mean platelet volume determi nationOrdered By: Jacky Jaiems on 03-25-2025 Platelet mean volume (Bld) [Entitic vol] 11.7 fL 6.2-12.0 [facility] Monocyte percentageOrdered B y: Jacky Jaimes on 03-25-2025 Monocytes/100 WBC (Bld) 7.3 % 0-10 [facility] Neutrophil percentageOrdered By: Jacky Jaimes on 03-25-2025 Neutrophils/100 WBC (Bld) 58.8 % 47-70 [facility] Nucleated red blood cell per centageOrdered By: Jacky Jaimes on 03-25-2025 Nucleated RBC/100 WBC (Bld) [Ratio] 0 % 0-5 [facility] Platelet countOrdered By: Stacy Jaimes on 03-25-2025 Platelets (Bld) [#/Vol] 396 10*3/uL 150-450 [facility] RBC Auto (Bld) [#/Vol]Ordere d By: Jacky Jaimes on 03-25-2025 RBC (Bld) [#/Vol] 4.24 10*6/uL Low 4.6-6.2 [facility] White blood cell (WBC) count Ordered By: Jacky Jaimes on 03-25-2025 WBC (Bld) [#/Vol] 8.3 10*3/uL 4.4-11.0 [facility] Bedside Glucoseon 03-21-2025 FINGERSTICK GLU 232 mg/dL High [address] [facility] Comment on above: Result Comment: KAUSHAL GEMENT OF PATIENT CARE PER NURSING PROTOCOL Performed By: #### L 501.080 #### [facility] [address] [place], [address] FINGERSTICK GLU 168 mg/dL High [address] Comment on above: Result Comment: KAUSHAL GEMENT OF PATIENT CARE PER NURSING PROTOCOL Performed By: #### L 501.080 #### [facility] [address] [place], [address] Discharge Instructionon 03-09 Discharge Instruction [facility] Medical Records Department [address] [place] [address] Instructions for Home/Discharge Instructions 03/21/25 1210 MR#: [id number] Acct: [id number] Name: BIANCA DELAROSA Rep #: [id number] : 1975 49 From: Jacky Jaimes DO PCP: Dr. Humberto Jackson MD Status:ADM IN Discharge Instructions Diet Discharge Diet: - (Clear liquids today, advance diet tomorrow to your usual diet) DC O2, CPAP, BIPAP needs Home O2 Discharge instructions: No Dressing / Incision Discharge Activity: Return to Normal Activity Weight Bearing Status: Full weight bearing Follow Up Care Test Results: Test results from this visit will be discussed in further detail at your follow-up appointment, if applicable. Discharge Plan Admission Admit Date/Time: 03/16/25 14:55 Primary Reason for Your Visit: Gastric cancer, gastroparesis Attending Provider: Jacky Jaimes Primary Care Provider: Humberto Jackson Consulting Providers: Tia Bergman Discharge Orders/Prescriptions Prescriptions: New fluticasone propionate 50 mcg/actuation [place],Suspension 1 spray NASAL DAILY PRN (Reason: allergic symptoms) Qty: 0 0RF ondansetron HCl 8 mg tablet 8 mg PO Q6H PRN PRN (Reason: nausea and vomiting) Qty: 40 0RF metoclopramide HCl [Reglan] 10 mg tablet 10 mg PO TID Qty: 30 0RF azithromycin [Zithromax] 500 mg tablet 500 mg PO DAILY 8 Days Qty: 8 0RF Continued multivitamin 1 EACH tablet 1 ea PO DAILY esomeprazole magnesium 40 MG capsule 40 mg PO QHS fenofibrate 50 MG capsule 54 mg PO DAILY metformin 500 mg tablet 1,000 mg PO BID doxepin 10 MG capsule 10 mg PO QHS olanzapine 2.5 MG tablet 2.5 mg PO QHS zonisamide 25 MG capsule 25 mg PO DAILY buspirone 15 mg tablet PO BID Patient Comments: TAKE 1 TABLET BY MOUTH TWICE A DAY insulin lispro protamin-lispro 100 unit/mL (75-25) insulin pen SUBCUT duloxetine 60 mg capsule,delayed release(DR/EC) PO DAILY Patient Comments: TAKE 1 CAPSULE BY MOUTH ONCE DAILY atorvastatin 80 mg tablet 80 mg PO DAILY dexmethylphenidate 20 mg capsule,ER biphasic 50-50 20 mg PO DAILY duloxetine 30 mg capsule,delayed release(DR/EC) 30 mg PO DAILY ferrous sulfate 325 mg (65 mg iron) tablet 325 mg PO BID Discontinued atorvastatin 20 mg tablet 20 mg PO DAILY Other Ambulatory Orders: CBC W/Diff, Automated (Routine) Timeframe: 20250325 Facility: [facility] - Location: Laboratory Ordered By: Dr. Jacky Jaimes Referrals / Follow Up: Humberto Jackson MD [Primary Care Provider] - Cary Chandra MD [Med Staff - Active Staff] - See Referral Note (At your scheduled appointment time) Disposition Disposition (needs filled in before D/C Order can be placed): Home, Self Care 03/21/25 1234 Jacky Jaimes DO CC: Dr. Humberto Jackson MD; Dr. Tia Bergman DO Signed Normal [facility] deOrdered By: Jacky Jaimes on 03-21-2025 Glucose [Mass/Vol] 232 mg/dL High 74-106 [facility] Comment on above: MANAGEMENT OF PATIEN T CARE PER NURSING PROTOCOL HH, Hemoglobin AND Hematocri ton 03-21-2025 Hematocrit (Bld) [Volume fraction] 29.1 % Low 40-54 [facility] Comment on above: Performed By: #### L 100.0600 #### [facility] [address] [place], [place], [id number] (266) Hemoglobin (Bld) [Mass/Vol] 9.4 g/dL Low 13.0-16.5 [facility] Comment on above: Performed By: #### L 100.0600 #### [facility] [address] [place], [address] Hematocrit Auto (Bld) [Volum e fraction]Ordered By: Jacky Jaimes on 03-21-2025 Hematocrit (Bld) [Volume fraction] 29.1 % Low 40-54 [facility] Hemoglobin measurementOrdere d By: Jacky Jaimes on 03-21-2025 Hemoglobin (Bld) [Mass/Vol] 9.4 g/dL Low 13.0-16.5 [facility] Bedside Glucoseon 03-20-2025 FINGERSTICK GLU 174 mg/dL High 74-106 [facility] Comment on above: Result Comment: KAUSHAL YBARRA OF PATIENT CARE PER NURSING PROTOCOL Performed By: #### L 501.080 #### [facility] [address] [place], [address] FINGERSTICK GLU 177 mg/dL High 74-106 [facility] Comment on above: Result Comment: KAUSHAL YBARRA OF PATIENT CARE PER NURSING PROTOCOL Performed By: #### L 499.0042 #### [facility] [address] [place], [place], [address] FINGERSTICK GLU 163 mg/dL High 74-106 [facility] Comment on above: Result Comment: KAUSHAL YBARRA OF PATIENT CARE PER NURSING PROTOCOL Performed By: #### L 501.080 #### [facility] [address] [place], [address] EGD Reporton 03-20-2025 EGD Report [facility] Medical Records Department [address] [place] [address] EGD Report MR#: [id number] Acct: [id number] Name: BIANCA DELAROSA Rep #: [id number] : 1975 49 From: Jonathan Martinez DO PCP: Dr. Humberto Jackson MD Status:ADM IN Patient Name: Bianca Delarosa Procedure Date: 03/20/2025 2:20 PM Date of : 1975 Age: 49 Procedure: Upper GI endoscopy Indications: For dilation and stenting of pyloric stenosis Providers: Jonathan Martinez DO Medicines: Monitored Anesthesia Care Patient Profile: This is a 49 year old male. Refer to note in patient chart for documentation of history and physical. Patient has symptoms of acute abdominal cramping, acute abdominal distention, acute epigastric abdominal pain, acute dyspepsia, acute nausea and acute vomiting. Complications: No immediate complications. Procedure: Pre-Anesthesia Assessment: - Prior to the procedure, a History and Physical was performed, and patient medications and allergies were reviewed. The patient is competent. The risks and benefits of the procedure and the sedation options and risks were discussed with the patient. All questions were answered and informed consent was obtained. Patient identification and proposed procedure were verified by the nurse in the pre-procedure area. Mental Status Examination: alert and oriented. Airway Examination: normal oropharyngeal airway and neck mobility. Respiratory Examination: clear to auscultation. CV Examination: normal. ASA Grade Assessment: III - A patient with severe systemic disease. After reviewing the risks and benefits, the patient was deemed in satisfactory condition to undergo the procedure. The anesthesia plan was to use monitored anesthesia care (MAC). Immediately prior to administration of medications, the patient was re-assessed for adequacy to receive sedatives. The heart rate, respiratory rate, oxygen saturations, blood pressure, adequacy of pulmonary ventilation, and response to care were monitored throughout the procedure. The physical status of the patient was re-assessed after the procedure. After obtaining informed consent, the endoscope was passed under direct vision. Throughout the procedure, the patient's blood pressure, pulse, and oxygen saturations were monitored continuously. The Endoscope was introduced through the mouth, and advanced to the fourth part of the duodenum. Small bowel enteroscopy was deemed necessary. The upper GI endoscopy was accomplished without difficulty. The patient tolerated the procedure well. Scope In: 2:41:45 PM Scope Out: 3:06:11 PM Total Procedure Duration Time 0 hours 24 minutes 26 seconds Findings: LA Grade D (one or more mucosal breaks involving at least 75% of esophageal circumference) esophagitis with no bleeding was found 31 to 40 cm from the incisors. A large amount of food (residue) was found in the entire examined stomach. A malignant-appearing, intrinsic moderate stenosis was found in the gastric antrum, in the prepyloric region of the stomach and at the pylorus. This was traversed. This was stented with a 22 mm x 9 cm Evolution controlled-release uncovered stent. Estimated blood loss was minimal. No gross lesions were noted in the entire examined duodenum. For location marking, [Device] [MRI Compatibility]. [Clip Loan Servicing Specialist]. [Bleeding?]. Impression: - LA Grade D erosive esophagitis with no bleeding. - A large amount of food (residue) in the stomach. - Gastric stenosis was found in the gastric antrum, in the prepyloric region of the stomach and at the pylorus. Prosthesis placed. - No gross lesions in the entire examined duodenum. - No specimens collected. Recommendation: - Discharge patient to home. - Resume previous diet. - Continue present medications. Procedure Code(s): --- Professional --- 30605, Small intestinal endoscopy, enteroscopy beyond second portion of duodenum, not including ileum; with transendoscopic stent placement (includes predilation) CPT copyright 2021 [employer]. All rights reserved. The codes documented in this report are preliminary and upon sales estimator review may be revised to meet current compliance requirements. Jonathan Martinez DO 03/20/2025 3:53:23 PM This report has been signed electronically. Number of Addenda: 0 Note Initiated On: 03/20/2025 2:20 PM 03/20/25 1553 Date Jonathan Martinez DO Cosigner Signature: Date (if indicated) CC: Dr. Humberto Jackson MD; Jonathan Martinez DO Date Dictated: 03/20/25 1420 Date Transcribed: Drill Setup Operator: RF Signed Normal [facility] Fluoroscopy 1 Hr or Lesson 0 03-20-2025 [address] [facility] Imaging Services [address] [place] [id number] Fluoroscopy 1 Hr or Less MR#: [id number] Acct: [id number] Name: BIANCA DELAROSA Rep #: [id number] : 1975 M 49 From: Dmitry contreras MD PCP: Dr. Humberto Jackson MD Status: ADM IN Study: Fluoroscopy 1 Hr or Less Date of Exam: 5 Exam# [id number] Ordering Dr: Jonathan Martinez DO PROCEDURE: FLUOROSCOPY 1 HR OR LESS 03/20/2025 REASON FOR EXAM: EGD and duodenal stenting. TECHNIQUE: Intraoperative fluoroscopic services provided for duodenal stenting. 14.3 seconds of fluoroscopy. 6.69 mGy. 5 images were submitted. FINDINGS: Intraoperative imaging provided for duodenal stenting. RAD/Fluoroscopy 1 Hr or Less IMPRESSION: Intraoperative imaging provided for duodenal stenting. Reading Location: [place] [address] CC: Dr. Humberto Jackson MD; Jonathan Martinez DO Drill Setup Operator: Signed [facility] MR/POSTOP.ANEon 03-20-2025 MR/POSTOP.ANE [facility] Medical Records Department [address] [facility] [place] [address] Anesthesia Postop Eval I 03/20/25 1520 MR#: [id number] Acct: [id number] Name: KERMITPIOBIANCA AVA Rep #: [id number] : 1975 49 From: Kamaljit Retana CRNA PCP: Dr. Humberto Jackson MD Status:ADM IN Y Race: C Location: [place] [address] Anesthesia: Postop Eval I Current Vital Signs Temperature: 99.4 F Pulse Rate: 93 Blood Pressure: 125/86 Respiratory Rate: 18 Pulse Ox: 99 Assessment Airway patent: Yes Spontaneous unlabored respirations: Yes nausea: No Vomiting: No Anesthesia Complication: No Fluid Hydration Crystalloid volume administer (ml): 700 Total IV fluid infused: 700 Progress Note Anesthesia document: Postop Eval 1 completed: Yes 03/20/25 1520 Date Kamaljit Retana ROOMING HOUSE INSPECTOR Cosigner Signature: Date CC: Signed [facility] [id number] 03-20-2025 MR/POSTOPAN2 [facility] Medical Records Department [address] [place] [address] Anesthesia Postop Eval II 03/20/25 1553 MR#: [id number] Acct: [id number] Name: BIANCA DELAROSA Rep #: [id number] : 1975 49 From: Issac Gil MD PCP: Dr. Humberto Jackson MD Status:ADM IN Y Race: C Location: [place] [address] Anesthesia Postop Eval I Sum Postop Eval Completion status Anesthesia document: Postop Eval 1 completed: Yes Anesthesia Postop Eval I Summary Anesthesia Postop Eval I Summary: Anesthesia Postop Eval I: Assessment Summary Airway patent Yes 03/20/25 15:20 ROOMING HOUSE INSPECTOR.DMAY Spontaneous unlabored Yes 03/20/25 15:20 ROOMING HOUSE INSPECTOR.DMAY respirations Mental status Awake,Calm 03/19/25 18:39 nausea No 03/20/25 15:20 ROOMING HOUSE INSPECTOR.DMAY Vomiting No 03/20/25 15:20 ROOMING HOUSE INSPECTOR.DMAY Anesthesia Postop Eval I: Fluid Summary Crystalloid volume administer 700 03/20/25 15:20 ROOMING HOUSE INSPECTOR.DMAY (ml) Colloids volume administered ( ml) Blood Product volume administered (ml) Total IV fluid infused 700 03/20/25 15:20 ROOMING HOUSE INSPECTOR.DMAY Anesthesia Postop Eval I: Summary Notes Anesthesia Complication No 03/20/25 15:20 ROOMING HOUSE INSPECTOR.DMAY Anesthesia Complication With insertion of 03/19/25 18:39 Comment: endoscope. Patient began vomiting large amounts of what appeared to be food. Immediately suctioned. Patient was awake enough that he seemed to protect his own airway. After 5 minutes of suctioning and vomiting. Patient was awake with baseline sats. Decision was to cancel procedure due to risk of aspiration. He will be monitored overnight. If he does well with his oxygen saturation , can bring back tomorrow but will need full intubation and general anesthesia because of risk of aspiration. Dr Micky Martinez has discussed this with family and the hospitalist Dr Micky Badillo Post-operative progress note Anesthesia: Postop Eval II Evaluation Mental status: Awake Pain Level: 0 nausea: No Vomiting: No 03/20/25 1553 Date Issac Diggs Signature: Date CC: Signed Normal [facility] Abdomen/Pelvis WITH Contrast on 03-19-2025 Abdomen/Pelvis WITH Contrast [facility] Imaging Services [address] [place] [address] Abdomen/Pelvis WITH Contrast MR#: [id number] Acct: [id number] Name: BIANCA DELAROSA Rep #: [id number] : 1975 M 49 From: Dmitry contreras MD PCP: Dr. Humberto Jackson MD Status: ADM IN Study: Abdomen/Pelvis WITH Contrast Date of Exam: 09/02 Exam# [id number] Ordering Dr: Jacky Jaimes DO PROCEDURE: ABDOMEN/PELVIS WITH CONTRAST 03/19/2025 REASON FOR EXAM: GASTRIC CANCER, RETAINED STOMACH CONTENTS Rectal abscesses. TECHNIQUE: Abdomen and pelvis CT with intravenous contrast. Coronal and Sagittal reconstruction series were provided. PATIENT PREPARATION: Per protocol ORAL CONTRAST TYPE: None. CONTRAST: Isovue-300 VOLUME: 100 mL One or more dose reduction techniques were used (e.g., Automated exposure control, adjustment of the mA and/or kV according to patient size, use of iterative reconstruction technique. RADIATION DOSE SUMMARY: CTDlvol: 17 mGy DLP: 1560.62 mGycm COMPARISON: Prior study dated March 16, 2025. FINDINGS: Lung bases: Mild bibasilar atelectasis and minimal bilateral pleural effusions. Stable 4 mm nodule in the right lower lobe. Liver: Diffuse fatty infiltration. Gallbladder: Unremarkable Spleen: Normal size. Pancreas: Diffuse fatty atrophy. Adrenals: Unremarkable Kidneys: Normal renal sizes. No hydronephrosis. 1.4 cm cyst in the midportion of the left kidney. Bladder: Unremarkable Reproductive Organs: Bowel: Distended stomach with retained food particles. Diffuse thickening of the distal portion of the antrum of the stomach and region of the pylorus. Small lymph nodes are seen in the surrounding peritoneal fat. Sigmoid diverticulosis. Appendix: Lymph nodes: Vasculature: Mild diffuse atherosclerotic calcifications are noted. Peritoneum / Retroperitoneum: Mild thickening of the right anterior perirenal fascia with a small amount of fluid. Small amount of free fluid is seen in the pelvis in keeping with the minimal ascites. Stable stranding in the omental fat in the right upper quadrant. Stable small benign-appearing retroperitoneal lymph nodes. Early omental metastasis should be ruled out. Bones: Small sclerotic lesion seen in the right iliac bone. Focal sclerosis seen in the anterior aspect of the right superior pubic ramus. CT/Abdomen/Pelvis WITH Contrast IMPRESSION: Stable examination. 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 Diffuse fatty infiltration of the liver. Small amount of free fluid in the pelvis. Reading Location: [place] [address] CC: Dr. Humberto Jackson MD; Dr. Jacky Jaimes DO Drill Setup Operator: Signed Normal [facility] Absolute lymphocyte countOrd ered By: Jacky Jaimes on 03-19-2025 Lymphocytes Auto (Unsp spec) [#/Vol] 2.08 10*3/uL 0.83-4.51 [facility] Absolute neutrophil countOrd ered By: Jacky Jaimes on 03-19-2025 Neutrophils (Bld) [#/Vol] 6.7 10*3/uL 2.0-7.7 [facility] Automated lymphocyte count a s percentage of total leukocytesOrdered By: Jacky Jaimes on 03-19-2025 Lymphocytes/100 WBC Auto (Unsp spec) 21.2 % 19-41 [facility] Basophil percentageOrdered B y: Jacky Jaimes on 03-19-2025 Basophils/100 WBC (Bld) 0.5 % 0-1 [facility] Bedside Glucoseon 03-19-2025 FINGERSTICK GLU 182 mg/dL High 74-106 [facility] Comment on above: Result Comment: KAUSHAL GEMENT OF PATIENT CARE PER NURSING PROTOCOL Performed By: #### L 499.0042 #### [facility] [address] [facility] [address] FINGERSTICK GLU 180 mg/dL High [address] [place] [address] Comment on above: Result Comment: KAUSHAL GEMENT OF PATIENT CARE PER NURSING PROTOCOL Performed By: #### L 499.0042 #### [facility] [address] [facility] [address] FINGERSTICK GLU 186 mg/dL High [facility]106 [facility] Comment on above: Result Comment: KAUSHAL GEMENT OF PATIENT CARE PER NURSING PROTOCOL Performed By: #### B RC #### [facility] [address] [place], [address] FINGERSTICK GLU 184 mg/dL High 74-106 [facility] Comment on above: Result Comment: KAUSHAL GEMENT OF PATIENT CARE PER NURSING PROTOCOL Performed By: #### L 499.0042 #### [facility] [address] [place], [address] FINGERSTICK GLU 169 mg/dL High 74-106 [facility] Comment on above: Result Comment: KAUSHAL GEMENT OF PATIENT CARE PER NURSING PROTOCOL Performed By: #### L 501.080 #### [facility] [address] [place], [address] CBC W/Diff, Automatedon - Absolute Lymph 2.08 X10 3/uL Normal 0.83-4.51 [facility] Comment on above: Performed By: #### L 100.0100, L500.2500, L501.4021 #### [facility] [address] [place], [address] Absolute Neut 6.7 X10 3/uL Normal 2.0-7.7 [facility] Comment on above: Performed By: #### L 100.0100, L500.2500, L501.4021 #### [facility] [address] [place], [address] Basophils/100 WBC (Bld) 0.5 % Normal 0-1 [facility] Comment on above: Performed By: #### L 100.0100, L500.2500, L501.4021 #### [facility] [address] [place], [address] Eosinophils/100 WBC (Bld) 2.0 % Normal 0-5 [facility] Comment on above: Performed By: #### L 100.0100, L500.2500, L501.4021 #### [facility] [address] [place], [address] Erythrocyte distribution width (RBC) [Ratio] 16.6 % High 11.6-14.6 [facility] Comment on above: Performed By: #### L 100.0100, L500.2500, L501.4021 #### [facility] [address] [place], [address] Hematocrit (Bld) [Volume fraction] 27.9 % Low 40-54 [facility] Comment on above: Performed By: #### L 100.0100, L500.2500, L501.4021 #### [facility] [address] [place], [address] Hemoglobin (Bld) [Mass/Vol] 8.9 g/dL Low 13.0-16.5 [facility] Comment on above: Performed By: #### L 100.0100, L500.2500, L501.4021 #### [facility] [address] [place], [address] IG% 0.600 Normal 0.0-0.9 [facility] Comment on above: Result Comment: IG% - Immature Granulocytes (promyelocytes, myelocytes and metamyelocytes) > 1% indicates that a LEFT SHIFT is Present. Performed By: #### L 100.0100, L500.2500, L501.4021 #### [facility] [address] [place], [address] Lymphocytes/100 WBC (Bld) 21.2 % Normal 19-41 [facility] Comment on above: Performed By: #### L 100.0100, L500.2500, L501.4021 #### [facility] [address] [place], [address] MCH (RBC) [Entitic mass] 25.3 pg Low 27.0-32.0 [facility] Comment on above: Performed By: #### L 100.0100, L500.2500, L501.4021 #### [facility] [address] [place], [address] MCHC (RBC) [Mass/Vol] 31.9 g/dL Low 32-36 [facility] Comment on above: Performed By: #### L 100.0100, L500.2500, L501.4021 #### [facility] [address] [place], [address] MCV (RBC) [Entitic vol] 79.3 fL Low 80-94 [facility] Comment on above: Performed By: #### L 100.0100, L500.2500, L501.4021 #### [facility] [address] [place], [address] Monocytes/100 WBC (Bld) 6.8 % Normal 0-10 [facility] Comment on above: Performed By: #### L 100.0100, L500.2500, L501.4021 #### [facility] [address] [place], [address] Neutrophils/100 WBC (Bld) 68.9 % Normal 47-70 [facility] Comment on above: Performed By: #### L 100.0100, L500.2500, L501.4021 #### [facility] [address] [place], [address] Nucleated RBC (Bld) [#/Vol] 0.3 10*3/uL Normal 0-5 [facility] Comment on above: Performed By: #### L 100.0100, L500.2500, L501.4021 #### [facility] [address] [place], [address] Platelet mean volume (Bld) [Entitic vol] 11.0 fL Normal 6.2-12.0 [facility] Comment on above: Performed By: #### L 100.0100, L500.2500, L501.4021 #### [facility] [address] [place], [address] Platelets (Bld) [#/Vol] 367 10*3/uL Normal 150-450 [facility] Comment on above: Performed By: #### L 100.0100, L500.2500, L501.4021 #### [facility] [address] [place], [address] RBC (Bld) [#/Vol] 3.52 10*6/uL Low 4.6-6.2 [facility] Comment on above: Performed By: #### L 100.0100, L500.2500, L501.4021 #### [facility] [address] [place], [address] RDW SD 44.8 fl High 35.1-43.9 [facility] Comment on above: Performed By: #### L 100.0100, L500.2500, L501.4021 #### [facility] [address] [place], [address] WBC (Bld) [#/Vol] 9.8 10*3/uL Normal 4.4-11.0 [facility] Comment on above: Performed By: #### L 100.0100, L500.2500, L501.4021 #### [facility] [address] [place], [address] Chest 1 View (Portable)on Chest 1 View (Portable) [facility] Imaging Services [address] [address] Chest 1 View (Portable) MR#: [id number] Acct: [id number] Name: DEMETRIABIANCA HURTADO AVA Rep #: [id number] : 1975 M 49 From: Donato Beck MD PCP: Dr. Humberto Jackson MD Status: ADM IN Study: Chest 1 View (Portable) Date of Exam: 03/19/25 Exam# [id number] Ordering Dr: Jacky Jaimes DO PROCEDURE: CHEST 1 VIEW (PORTABLE) 03/19/2025 REASON FOR EXAM: ASPIRATION TECHNIQUE: Frontal view of the chest. COMPARISON: 03/16/2025. FINDINGS: The heart is normal in size. The mediastinum is normal in contour. The lungs are clear. No acute osseous abnormalities. RAD/Chest 1 View (Portable) IMPRESSION: No acute cardiopulmonary abnormalities. Reading Location: [place] [address] CC: Dr. Humberto Jackson MD; Dr. Jacky Jaimes DO Drill Setup Operator: Signed Normal [facility] EGD Reporton 03-19-2025 EGD Report [facility] Medical Records Department [address] [place] [id number] EGD Report MR#: [id number] Acct: [id number] Name: BIANCA DELAROSA Rep #: [id number] : 1975 49 From: Jonathan Martinez DO PCP: Dr. Humberto Jackson MD Status:ADM IN Patient Name: Bianca Delarosa Procedure Date: 03/19/2025 5:36 PM Date of : 1975 Age: 49 Procedure: Upper GI endoscopy Indications: Iron deficiency anemia, Peptic ulcer Providers: Jonathan Martinez DO Medicines: Monitored Anesthesia Care Patient Profile: This is a 49 year old male. Refer to note in patient chart for documentation of history and physical. Patient has symptoms of acute nausea, chronic regurgitation and acute vomiting. Complications: No immediate complications. Procedure: Pre-Anesthesia Assessment: - Prior to the procedure, a History and Physical was performed, and patient medications and allergies were reviewed. The patient is competent. The risks and benefits of the procedure and the sedation options and risks were discussed with the patient. All questions were answered and informed consent was obtained. Patient identification and proposed procedure were verified by the physician in the pre-procedure area. Mental Status Examination: alert and oriented. Airway Examination: normal oropharyngeal airway and neck mobility. Respiratory Examination: clear to auscultation. CV Examination: normal. ASA Grade Assessment: II - A patient with mild systemic disease. After reviewing the risks and benefits, the patient was deemed in satisfactory condition to undergo the procedure. The anesthesia plan was to use monitored anesthesia care (MAC). Immediately prior to administration of medications, the patient was re-assessed for adequacy to receive sedatives. The heart rate, respiratory rate, oxygen saturations, blood pressure, adequacy of pulmonary ventilation, and response to care were monitored throughout the procedure. The physical status of the patient was re-assessed after the procedure. After obtaining informed consent, the endoscope was passed under direct vision. Throughout the procedure, the patient's blood pressure, pulse, and oxygen saturations were monitored continuously. The Colonoscope was introduced through the mouth, and advanced to the pylorus. The upper GI endoscopy was accomplished without difficulty. The patient tolerated the procedure well. The patient tolerated the procedure poorly due to the patient's respiratory instability (pulmonary aspiration). Scope In: 6:10:10 PM Scope Out: 6:15:03 PM Total Procedure Duration Time 0 hours 4 minutes 53 seconds Findings: LA Grade D (one or more mucosal breaks involving at least 75% of esophageal circumference) esophagitis with no bleeding was found 20 to 40 cm from the incisors. A large amount of food (residue) was found in the entire examined stomach. Many oozing cratered gastric ulcers with pigmented material were found at the incisura, in the gastric antrum, in the prepyloric region of the stomach and at the pylorus. Impression: - LA Grade D reflux esophagitis with no bleeding. - A large amount of food (residue) in the stomach. - Oozing gastric ulcers with pigmented material. - No specimens collected. Recommendation: - Discharge patient to home. - NPO. - Continue present medications. Procedure Code(s): --- Professional --- 13954, 52, Esophagogastroduodenoscopy , flexible, transoral; diagnostic, including collection of specimen(s) by brushing or washing, when performed (separate procedure) CPT copyright 2021 [employer]. All rights reserved. The codes documented in this report are preliminary and upon sales estimator review may be revised to meet current compliance requirements. Jonathan Martinez DO 03/19/2025 6:32:02 PM This report has been signed electronically. Number of Addenda: 0 Note Initiated On: 03/19/2025 5:36 PM 03/19/25 183 Date Jonathan Friend DO Caterina Signature: Date (if indicated) CC: Dr. Humberto Jackson MD; Jonathan Friend, DO Date Dictated: 03/19/25 173 Date Transcribed: Drill Setup Operator: RF Signed Normal [facility] Eosinophil percentageOrdered By: Jacky Jaimes on 03-19-2025 Eosinophils/100 WBC (Bld) 2.0 % 0-5 [facility] Erythrocyte distribution wid th ratioOrdered By: Jacky Jaimes on 03-19-2025 Erythrocyte distribution width (RBC) [Ratio] 16.6 % High 11.6-14.6 [facility] Erythrocyte distribution wid th standard deviationOrdered By: Jacky Jaimes on 03-19-2025 Erythrocyte distribution width (RBC) [Ratio] 44.8 fl High 35.1-43.9 [facility] Immature granulocytes/100 WB C Auto (Bld)Ordered By: Jacky Jaimes on 03-19-2025 Immature granulocytes/100 WBC (Bld) 0.600 % 0.0-0.9 [facility] Comment on above: IG% - Immature Granu locytes (promyelocytes, myelocytes and metamyelocytes) > 1% indicates that a LEFT SHIFT is Present. MCV (mean corpuscular volume ) determinationOrdered By: Jacky Jaimes on 03-19-2025 MCV (RBC) [Entitic vol] 79.3 fL Low 80-94 [facility] MR/POSTOP.ANEon 03-19-2025 MR/POSTOP.ANE [facility] Medical Records Department [address] [place] [address] Anesthesia Postop Eval I 03/19/25 1836 MR#: [id number] Acct: [id number] Name: BIANCA DELAROSA Rep #: [id number] : 1975 49 From: Issac Gil MD PCP: Dr. Humberto Jackson MD Status:ADM IN Y Race: C Location: GA3 [id number] Anesthesia: Postop Eval I Current Vital Signs Temperature: 99 F Pulse Rate: 102 Blood Pressure: 135/84 Respiratory Rate: 16 Pulse Ox: 96 Oxygen Delivery Method: Nasal Cannula Oxygen Flow Rate (L/min): 3 Assessment Airway patent: Yes Spontaneous unlabored respirations: Yes Mental status: Awake nausea: No Vomiting: No Anesthesia Complication: Yes Anesthesia Complication Comment:: With insertion of endoscope. Patient began vomiting large amounts of what appeared to be food. Immediately suctioned. Patient was awake enough that he seemed to protect his own airway. After 5 minutes of suctioning and vomiting. Patient was awake with baseline sats. Decision was to cancel procedure due to risk of aspiration. He will be monitored overnight. If he does well with his oxygen saturation, can bring back tomorrow but will need full intubation and general anesthesia because of risk of aspiration. Dr. Martinez has discussed this with family and the hospitalist Dr. Darrick Badillo Fluid Hydration Crystalloid volume administer (ml): 50 Total IV fluid infused: 50 Progress Note Anesthesia document: Postop Eval 1 completed: Yes 03/19/251838 Date Issac Gil MD [facility] Signature: Date CC: Signed Normal [facility] [id number] 03-19-2025 MR/POSTOPAN2 [facility] Medical Records Department [address] [place] [address] Anesthesia Postop Eval II 03/19/251838 MR#: [id number] Acct: [id number] Name: BIANCA DELAROSA Rep #: [id number] : 1975 49 From: Issac Gil MD PCP: Dr. Humberto Jackson MD Status:ADM IN Y Race: C Location[place] [facility] [place] Anesthesia Postop Eval I Sum Postop Eval Completion status Anesthesia document: Postop Eval 1 completed: Yes Anesthesia Postop Eval I Summary Anesthesia Postop Eval I Summary: Anesthesia Postop Eval I: Assessment Summary Airway patent Yes 03/19/25 18:39 Spontaneous unlabored Yes 03/19/25 18:39 respirations Mental status Awake 03/19/25 18:39 nausea No 03/19/25 18:39 Vomiting No 03/19/25 18:39 Anesthesia Postop Eval I: Fluid Summary Crystalloid volume administer 50 03/19/25 18:39 (ml) Colloids volume administered ( ml) Blood Product volume administered (ml) Total IV fluid infused 50 03/19/25 18:39 Anesthesia Postop Eval I: Summary Notes Anesthesia Complication Yes 03/19/25 18:39 Anesthesia Complication With insertion of 03/19/25 18:39 Comment: endoscope. Patient began vomiting large amounts of what appeared to be food. Immediately suctioned. Patient was awake enough that he seemed to protect his own airway. After 5 minutes of suctioning and vomiting. Patient was awake with baseline sats. Decision was to cancel procedure due to risk of aspiration. He will be monitored overnight. If he does well with his oxygen saturation , can bring back tomorrow but will need full intubation and general anesthesia because of risk of aspiration. Dr Micky Martinez has discussed this with family and the hospitalist Dr Micky Badillo Post-operative progress note Anesthesia: Postop Eval II Evaluation Mental status: Awake and Calm Pain Level: 0 nausea: No Vomiting: No 03/19/25 1839 Date Issac Diggs Signature: Date CC: Signed Normal [facility] Mean corpuscular hemoglobin (MCH) determinationOrdered By: Jacky Jaimes on 03-19-2025 MCH (RBC) [Entitic mass] 25.3 pg Low 27.0-32.0 [facility] Mean corpuscular hemoglobin concentration (MCHC) determinationOrdered By: Jacky Jaimes on 03-19-2025 MCHC (RBC) [Mass/Vol] 31.9 g/dL Low 32-36 [facility] Mean platelet volume determi nationOrdered By: Jacky Jaimes on 03-19-2025 Platelet mean volume (Bld) [Entitic vol] 11.0 fL 6.2-12.0 [facility] Monocyte percentageOrdered B y: Jacky Jaimes on 03-19-2025 Monocytes/100 WBC (Bld) 6.8 % 0-10 [facility] Neutrophil percentageOrdered By: Jacky Jaimes on 03-19-2025 Neutrophils/100 WBC (Bld) 68.9 % 47-70 [facility] Nucleated red blood cell per centageOrdered By: Jacky Jaimes on 03-19-2025 Nucleated RBC/100 WBC (Bld) [Ratio] 0.3 % 0-5 [facility] Platelet countOrdered By: Stacy Jaimes on 03-19-2025 Platelets (Bld) [#/Vol] 367 10*3/uL 150-450 [facility] RBC Auto (Bld) [#/Vol]Ordere d By: Jakcy Jaimes on 03-19-2025 RBC (Bld) [#/Vol] 3.52 10*6/uL Low 4.6-6.2 [facility] White blood cell (WBC) count Ordered By: Jacky Jaimes on 03-19-2025 WBC (Bld) [#/Vol] 9.8 10*3/uL 4.4-11.0 [facility] Bedside Glucoseon 03-18-2025 FINGERSTICK GLU 158 mg/dL High 74-106 [facility] Comment on above: Result Comment: KAUSHAL YBARRA OF PATIENT CARE PER NURSING PROTOCOL Performed By: #### L 499.0042 #### [facility] [address] [place], [address] FINGERSTICK GLU 169 mg/dL High 74-106 [facility] Comment on above: Result Comment: KAUSHAL GEMENT OF PATIENT CARE PER NURSING PROTOCOL Performed By: #### B RC #### [facility] [address] [place], [address] FINGERSTICK GLU 171 mg/dL High 74-106 [facility] Comment on above: Result Comment: KAUSHAL GEMENT OF PATIENT CARE PER NURSING PROTOCOL Performed By: #### L 499.0042 #### [facility] [address] [place], [address] HH, Hemoglobin AND Hematocri ton 03-18-2025 Hematocrit (Bld) [Volume fraction] 22.7 % Low 40-54 [facility] Comment on above: Performed By: #### B RC #### [facility] [address] [place], [address] Hemoglobin (Bld) [Mass/Vol] 7.0 g/dL Low 13.0-16.5 [facility] Comment on above: Performed By: #### B RC #### [facility] [address] [place], [address] Anion gap in Serum or Plasma Ordered By: Tia Bergman on 03-17-2025 Anion gap [Moles/Vol] 10 mmol/L 5-15 [facility] BUN/creatinine ratioOrdered By: Tia Bergman on 03-17-2025 Urea nitrogen/Creatinine [Mass ratio] 12.4 mg/mg 10-20 [facility] Basic Metabolic Profile (BMP )on 03-17-2025 BUN/CRE 12.4 RATIO Normal -20 [facility] Comment on above: Performed By: #### L 499.0042 #### [facility] [address] [place], [address] Calcium [Mass/Vol] 8.6 mg/dL Normal 7.6-11.0 [facility] Comment on above: Performed By: #### L 499.0042 #### [facility] [address] [place], [address] Chloride [Moles/Vol] 105 mmol/L Normal 98-108 [facility] Comment on above: Performed By: #### L 499.0042 #### [facility] [address] [place], [address] CO2 [Moles/Vol] 22.6 mmol/L Normal 21.0-32.0 [facility] Comment on above: Performed By: #### L 499.0042 #### [facility] [address] [place], [address] Creatinine [Mass/Vol] 0.72 mg/dL Normal 0.70-1.20 [facility] Comment on above: Performed By: #### L 499.0042 #### [facility] [address] [place], [address] ECRCL 170.67 ml/min Normal 50-250 [facility] Comment on above: Performed By: #### L 499.0042 #### [facility] [address] [place], [address] GAP 10 Normal 5-15 [facility] Comment on above: Performed By: #### L 499.0042 #### [facility] [address] [place], [address] GFR/1.73 sq M.predicted among non-blacks MDRD (S/P/Bld) [Vol rate/Area] 111 mL/min/{1.73_m2} Normal >60 [facility] Comment on above: Result Comment: mL/m in/1.73m2 CKD-EPI Creatinine Equation (2020) Performed By: #### L 499.0042 #### [facility] [address] [place], [address] Glucose [Mass/Vol] 181 mg/dL High 70-99 [facility] Comment on above: Performed By: #### L 499.0042 #### [facility] [address] [place], [address] Potassium [Moles/Vol] 3.8 mmol/L Normal 3.3-5.1 [facility] Comment on above: Performed By: #### L 499.0042 #### [facility] [address] [place], [address] Sodium [Moles/Vol] 138 mmol/L Normal 133-145 [facility] Comment on above: Performed By: #### L 499.0042 #### [facility] [address] [place], [address] Urea nitrogen [Mass/Vol] 9 mg/dL Normal 4-19 [facility] Comment on above: Performed By: #### L 499.0042 #### [facility] [address] [place], [address] Bedside Glucoseon 03-17-2025 FINGERSTICK GLU 185 mg/dL High 74-106 [facility] Comment on above: Result Comment: KAUSHAL GEMENT OF PATIENT CARE PER NURSING PROTOCOL Performed By: #### B RC #### [facility] [address] [place], [address] FINGERSTICK GLU 185 mg/dL High 74-106 [facility] Comment on above: Result Comment: KAUSHAL GEMENT OF PATIENT CARE PER NURSING PROTOCOL Performed By: #### L 100.0100, L500.2500, L501.4021 #### [facility] [address] [place], [address] FINGERSTICK GLU 179 mg/dL High 74-106 [facility] Comment on above: Result Comment: KAUSHAL GEMENT OF PATIENT CARE PER NURSING PROTOCOL Performed By: #### L 499.0042 #### [facility] [address] [place], [address] CBC W/Diff, Automatedon 06-0 9-2025 Absolute Lymph 2.47 X10 3/uL Normal 0.83-4.51 [facility] Comment on above: Performed By: #### L 100.0100, L500.2500, L501.4021 #### [facility] [address] [place], [address] Absolute Neut 5.1 X10 3/uL Normal 2.0-7.7 [facility] Comment on above: Performed By: #### L 100.0100, L500.2500, L501.4021 #### [facility] [address] [place], [address] Basophils/100 WBC (Bld) 0.7 % Normal 0-1 [facility] Comment on above: Performed By: #### L 100.0100, L500.2500, L501.4021 #### [facility] [address] [place], [address] Eosinophils/100 WBC (Bld) 2.6 % Normal 0-5 [facility] Comment on above: Performed By: #### L 100.0100, L500.2500, L501.4021 #### [facility] [address] [place], [address] Erythrocyte distribution width (RBC) [Ratio] 15.1 % High 11.6-14.6 [facility] Comment on above: Performed By: #### L 100.0100, L500.2500, L501.4021 #### [facility] [address] [place], [address] Hematocrit (Bld) [Volume fraction] 23.0 % Low 40-54 [facility] Comment on above: Performed By: #### L 100.0100, L500.2500, L501.4021 #### [facility] [address] [place], [address] Hemoglobin (Bld) [Mass/Vol] 7.2 g/dL Low 13.0-16.5 [facility] Comment on above: Performed By: #### L 100.0100, L500.2500, L501.4021 #### [facility] [address] [place], [address] IG% 0.500 Normal 0.0-0.9 [facility] Comment on above: Result Comment: IG% - Immature Granulocytes (promyelocytes, myelocytes and metamyelocytes) > 1% indicates that a LEFT SHIFT is Present. Performed By: #### L 100.0100, L500.2500, L501.4021 #### [facility] [address] [place], [address] Lymphocytes/100 WBC (Bld) 29.1 % Normal 19-41 [facility] Comment on above: Performed By: #### L 100.0100, L500.2500, L501.4021 #### [facility] [address] [place], [address] MCH (RBC) [Entitic mass] 24.1 pg Low 27.0-32.0 [facility] Comment on above: Performed By: #### L 100.0100, L500.2500, L501.4021 #### [facility] [address] [place], [address] MCHC (RBC) [Mass/Vol] 31.3 g/dL Low 32-36 [facility] Comment on above: Performed By: #### L 100.0100, L500.2500, L501.4021 #### [facility] [address] [place], [address] MCV (RBC) [Entitic vol] 76.9 fL Low 80-94 [facility] Comment on above: Performed By: #### L 100.0100, L500.2500, L501.4021 #### [facility] [address] [place], [address] Monocytes/100 WBC (Bld) 7.5 % Normal 0-10 [facility] Comment on above: Performed By: #### L 100.0100, L500.2500, L501.4021 #### [facility] [address] [place], [address] Neutrophils/100 WBC (Bld) 59.6 % Normal 47-70 [facility] Comment on above: Performed By: #### L 100.0100, L500.2500, L501.4021 #### [facility] [address] [place], [address] Nucleated RBC (Bld) [#/Vol] 0.2 10*3/uL Normal 0-5 [facility] Comment on above: Performed By: #### L 100.0100, L500.2500, L501.4021 #### [facility] [address] [place], [address] Platelet mean volume (Bld) [Entitic vol] 11.4 fL Normal 6.2-12.0 [facility] Comment on above: Performed By: #### L 100.0100, L500.2500, L501.4021 #### [facility] [address] [place], [address] Platelets (Bld) [#/Vol] 363 10*3/uL Normal 150-450 [facility] Comment on above: Performed By: #### L 100.0100, L500.2500, L501.4021 #### [facility] [address] [place], [address] RBC (Bld) [#/Vol] 2.99 10*6/uL Low 4.6-6.2 [facility] Comment on above: Performed By: #### L 100.0100, L500.2500, L501.4021 #### [facility] [address] [place], [address] RDW SD 41.2 fl Normal 35.1-43.9 [facility] Comment on above: Performed By: #### L 100.0100, L500.2500, L501.4021 #### [facility] [address] [place], [address] WBC (Bld) [#/Vol] 8.5 10*3/uL Normal 4.4-11.0 [facility] Comment on above: Performed By: #### L 100.0100, L500.2500, L501.4021 #### [facility] [address] [place], [address] Carbon dioxide, total [Moles /volume] in Central venous bloodOrdered By: Tia Bergman on 03-17-2025 CO2 [Moles/Vol] 22.6 mmol/L 21.0-32.0 [facility] Chloride assayOrdered By: Steven Bergman on 03-17-2025 Chloride [Moles/Vol] 105 mmol/L 98-108 [facility] EGD Reporton 03-17-2025 EGD Report [facility] Medical Records Department [address] [address] EGD Report MR#: [id number] Acct: [id number] Name: BIANCA DELAROSA Rep #: [id number] : 1975 49 From: Jonathan Martinez DO PCP: Dr. Humberto Jackson MD Status:ADM IN Patient Name: Bianca Delarosa Procedure Date: 03/17/2025 12:52 PM Date of : 1975 Age: 49 Procedure: Upper GI endoscopy Indications: Iron deficiency anemia, Unexplained iron deficiency anemia, Functional Dyspepsia, Indigestion, Heartburn, Suspected upper gastrointestinal bleeding Providers: Jonathan Martinez DO Medicines: Monitored Anesthesia Care Patient Profile: This is a 49 year old male. Refer to note in patient chart for documentation of history and physical. Patient has symptoms of acute abdominal distention and acute epigastric abdominal pain. Previously obtained CT showed a mass in the stomach. Laboratory tests results include iron deficiency anemia and anemia due to chronic blood loss. Complications: No immediate complications. Procedure: Pre-Anesthesia Assessment: - Prior to the procedure, a History and Physical was performed, and patient medications and allergies were reviewed. The patient is competent. The risks and benefits of the procedure and the sedation options and risks were discussed with the patient. All questions were answered and informed consent was obtained. Patient identification and proposed procedure were verified by the physician in the pre-procedure area. Mental Status Examination: alert and oriented. Airway Examination: normal oropharyngeal airway and neck mobility. Respiratory Examination: clear to auscultation. CV Examination: normal. Prophylactic Antibiotics: The patient does not require prophylactic antibiotics. Prior Anticoagulants: The patient has taken no anticoagulant or antiplatelet agents except for NSAID medication. ASA Grade Assessment: II - A patient with mild systemic disease. After reviewing the risks and benefits, the patient was deemed in satisfactory condition to undergo the procedure. The anesthesia plan was to use monitored anesthesia care (MAC). Immediately prior to administration of medications, the patient was re-assessed for adequacy to receive sedatives. The heart rate, respiratory rate, oxygen saturations, blood pressure, adequacy of pulmonary ventilation, and response to care were monitored throughout the procedure. The physical status of the patient was re-assessed after the procedure. After obtaining informed consent, the endoscope was passed under direct vision. Throughout the procedure, the patient's blood pressure, pulse, and oxygen saturations were monitored continuously. The gastroscope was introduced through the mouth, and advanced to the third part of the duodenum. Small bowel enteroscopy was deemed necessary. The upper GI endoscopy was accomplished without difficulty. The patient tolerated the procedure well. Scope In: 1:06:00 PM Scope Out: 1:17:07 PM Total Procedure Duration Time 0 hours 11 minutes 7 seconds Findings: LA Grade D (one or more mucosal breaks involving at least 75% of esophageal circumference) esophagitis with no bleeding was found 31 to 40 cm from the incisors. Suspect gastroparesis due to absence of peristalsis, patient symptoms and retained gastric contents. A large amount of food (residue) was found in the entire examined stomach. One oozing cratered gastric ulcer with pigmented material was found in the gastric antrum and in the prepyloric region of the stomach. The lesion was 21 mm in largest dimension. Biopsies were taken with a cold forceps for histology. Verification of patient identification for the specimen was done. Biopsies were taken with a cold forceps for Helicobacter pylori testing. Verification of patient identification for the specimen was done. Estimated blood loss was minimal. No gross lesions were noted in the entire examined duodenum. Impression: - LA Grade D erosive esophagitis with no bleeding. - Gastroparesis. - A large amount of food (residue) in the stomach with functional gastric outlet obstruction due to lack of accommodation of the distal portion of the stomach - Oozing gastric ulcer with pigmented material. Biopsied. - No gross lesions in the entire examined duodenum. Recommendation: - Discharge patient to home. - Clear liquid diet. - Continue present medications. - Await pathology results. - Repeat upper endoscopy to evaluate the response to therapy. - Metoclopramide 10 mg IV every 6 hours to increase gastric motility - Azithromycin 1 g IV to increase small bowel motility -,Patient may need a stent bridging the pylorus - Consider NG tube with gastric lavage to flush the fluid out of his stomach Procedure Code(s): --- Professional --- 32875, (more content not included)... Normal [facility] Electrocardiogram reportOrde red By: Prince Vega on 03-17-[address] [facility] Cardiovascular Services [address] [place] [address] 12 Lead EKG 03/16/25 1212 MR#: [id number] Acct: [id number] Name: BIANCA DELAROSA Rep #:[id number] : 1975 49 From: Prince canela MD Attending Dr: Dr. Jacky Jaimes, Status: ADM IN Ordering Dr: Macey Merchant DO Date: 06/02 Location[place] [facility] [place] Sex: M C Admitted: 03/16/25 Test Reason : PALPS Blood Pressure : */* mmHG Vent. Rate : 90 BPM Atrial Rate : 90 BPM P-R Int : 186 ms QRS Dur : 104 ms QT Int : 376 ms P-R-T Axes : 46 -15 55 degrees QTcB Int : 459 ms Normal sinus rhythm Minimal voltage criteria for LVH, may be normal variant ( R in aVL ) POOR R WAVE PROGRESSION Abnormal ECG Confirmed by Prince Vega ([id number]), payroll officer JENN SIDHU ([id number]) on 03/17/2025 9:36:47 AM Referred By: CG Confirmed By: Prince Vega 03/17/2536 Date _ Prince Vega MD CC: Dr. Humberto Jackson MD; Dr. Jacky Jaimes DO; Dr. Macey Merchant DO ~ Signed [facility] Other Phone: Frozen Section (charge)on Frozen Section (charge) Patient Age/Sex Location Account Attending Physician BIANCA DELAROSA 49/M MS3 [id number] Dr. Jacky Jaimes DO Specimen: [id number] Received: 03/17/25 Status: SUGAR Liao Num: [id number] Spec Type: EGD BIOPSY Subm Dr: Jonathan Martinez, HEADER OPERATION: EGD with biopsy PRE-OP DIAGNOSIS: Gastric mass, symptomatic anemia, weight loss, microcytic anemia TISSUE SUBMITTED: A- Gastric mass biopsy, B- Gastric mass biopsy FROZEN SECTION DIAGNOSIS A. Gastric mass, biopsy: Malignant neoplasm. MS/mr 03/17/2025 MICROSCOPIC DIAGNOSIS A. Stomach, mass, biopsy: * Gastric mucosa with malignant neoplasm (see part B). * Necrosis with abundant fungal organisms. B. Stomach, mass, biopsy: * Gastric mucosa with poorly differentiated adenocarcinoma - see note and Comment. * Necrosis with abundant fungal organisms. * IHC negative for H pylori organisms. * Note: IHCs were performed at [facility] and [facility]. * Positive: pancytokeratin, CK7, CDX2. * Negative: CK20, CD45, Chromogranin, Synaptophysin, DOG-1, CD117. * Ki67 appears increased. * The positive CK7 with negative CK20 supports an upper GI primary site. COMMENT Selected slides/images were reviewed in intradepartmental consultation by Dr Genesis Lam/GI pathology consensus group (GI pathology division, [facility]). MICROSCOPIC DESCRIPTION Slides are reviewed. All matched controls reacted appropriately. (H pylori, Pancytokeratin, CK7, CK20, CDX2, CD45, Chromogranin, Synaptophysin, Ki67) These tests were developed and their performance characteristics determined by [facility]. They may not have been cleared or approved by the U.S. Food and Drug Administration. The FDA has determined that such clearance or approval is not necessary.??? The above immunohistochemical/dualIS H???markers are ordered and reviewed by the Pathologist. Patient Age/Sex Location Account Attending Physician BIANCA DELAROSA 49/M MS3 [id number] Dr. Jacky Jaimes, DO All controls show appropriate reactivity. (DOG-1, CD117) All immunohistochemistry, in situ hybridization, and histochemical tests were developed by and are performed at the [facility], [address] [place] [address],???[place] [address]. All Immunofluorescent (IF)???tests were developed by and are performed at the [facility], [address] [place] [address] ???[id number]. All tests reported here, except those addressing HER2 overexpression as a predictive marker, have not been cleared by or approved by the US Food and Drug Administration (FDA). The laboratory is regulated under CLIA as qualified to perform high-complexity testing. The tests are used for clinical purposes. They should not be regarded as investigational or for research. ??? GROSS DESCRIPTION A. Received fresh for frozen section diagnosis labeled with the patient's name and date of . Designated as gastric mucus, frozen section is a 1.0 x 1.0 x 1.0 cm aggregate of dark red tissue fragments. Entirely submitted for frozen section diagnosis and subsequently placed in cassette A1 for permanent sections. B. Received in formalin labeled with the patient's name and date of . Designated as gastric mass BX for H. pylori half and is a 0.7 x 0.5 x 0.1 cm aggregate of españa soft tissue fragments and flocculent material. Entirely submitted in 1 cassette. [facility] 03/18/2025 CPT:39698k1,53672,74015,88 341x10 ADDENDUM Addendum 1 Entered: 04/03/25 This addendum is added to incorporate an outside pathology consultation report. The case was examined at [facility] by Dr. Treviño (#[id number]) and the following diagnosis was rendered. B. Stomach, mass, biopsy: PD-L1 IHC 22C3 PharmDx Result Expression level: Positive for PD-L1 expression (CPS greater than or equal to 1) Combined Positive Score (CPS): 15 HER2 Immunohistochemistry: Result: Negative (score 1+) Please see complete above mentioned consultation report in EMR Patient Age/Sex Location Ac (more content not included)... Normal [facility] Comment on above: Performed By: #### B RC #### [facility] [address] [place], [place] [address], [address] Glomerular filtration rate ( GFR) estimation/1.73 sq m using serum, plasma, or whole bOrdered By: Tia Bergman on 03-17-2025 GFR/1.73 sq M.predicted among non-blacks MDRD (S/P/Bld) [Vol rate/Area] 111 mL/min/{1.73_m2} >60 [facility] Comment on above: mL/min/1.73m2 CKD-EP I Creatinine Equation (2020) HH, Hemoglobin AND Hematocri ton 03-17-2025 Hematocrit (Bld) [Volume fraction] 24.1 % Low 40-54 [facility] Comment on above: Performed By: #### L 100.0100, L500.2500, L501.4021 #### [facility] [address] [place], [address] Hemoglobin (Bld) [Mass/Vol] 7.6 g/dL Low 13.0-16.5 [facility] Comment on above: Performed By: #### L 100.0100, L500.2500, L501.4021 #### [facility] [address] [place], [address] Hemoglobin A1con 03-17-2025 HbA1c (Bld) [Mass fraction] 8.4 % High <=5.6 [facility] Comment on above: Order Comment: SHANTE ZER NOT WORKING FOR A1C, UNABLE TO RUN CURRENTLY. [address] 03-16-25 Result Comment: Norm al < 5.7 % Prediabetic 5.7 - 6.4 % Diabetic >or= 6.5 % Please note range changes. Performed By: #### L 100.0100, L500.2500, L501.4021 #### [facility] [address] [place], [address] MR/POSTOP.ANEon 03-17-2025 MR/POSTOP.ANE [facility] Medical Records Department [address] [place] [address] Anesthesia Postop Eval I 03/17/25 1339 MR#: [id number] Acct: [id number] Name: BIANCA DELAROSA Rep #: [id number] : 1975 49 From: Maryann Mensah PCP: Dr. Humberto Jackson MD Status:ADM IN Y Race: C Location: [place] [id number] Anesthesia: Postop Eval I Current Vital Signs Temperature: 97.3 F Pulse Rate: 97 Blood Pressure: 110/74 Respiratory Rate: 18 Pulse Ox: 93 Oxygen Delivery Method: Nasal Cannula Oxygen Flow Rate (L/min): 2 Assessment Airway patent: Yes Spontaneous unlabored respirations: Yes Mental status: Awake and Calm nausea: Yes Vomiting: Yes Anesthesia Complication: Yes Anesthesia Complication Comment:: emesis upon emergence, suctioned,. lungs CTA Fluid Hydration Crystalloid volume administer (ml): 300 Total IV fluid infused: 300 Progress Note Anesthesia document: Postop Eval 1 completed: Yes 03/17/25 1344 Date Maryann Berriosronald Nguyenrupal Signature: Date CC: Signed Normal [facility] [id number] 03-17-2025 MR/POSTOPAN2 [facility] Medical Records Department [address] [place] [address] Anesthesia Postop Eval II 03/17/25 1457 MR#: [id number] Acct: [id number] Name: BIANCA DELAROSA Rep #: [id number] : 1975 49 From: Issac Gil MD PCP: Dr. Humberto Jackson MD Status:ADM IN Y Race: C Location: [place] [address] Anesthesia Postop Eval I Sum Postop Eval Completion status Anesthesia document: Postop Eval 1 completed: Yes Anesthesia Postop Eval I Summary Anesthesia Postop Eval I Summary: Anesthesia Postop Eval I: Assessment Summary Airway patent Yes 03/17/25 13:42 [email or web address] Spontaneous unlabored Yes 03/17/25 13:42 [email or web address] respirations Mental status Awake,Calm 03/17/25 13:42 [email or web address] nausea Yes 03/17/25 13:42 [email or web address] Vomiting Yes 03/17/25 13:42 [email or web address] Anesthesia Postop Eval I: Fluid Summary Crystalloid volume administer 300 03/17/25 13:44 [email or web address] (ml) Colloids volume administered ( ml) Blood Product volume administered (ml) Total IV fluid infused 300 03/17/25 13:44 [email or web address] Anesthesia Postop Eval I: Summary Notes Anesthesia Complication Yes 03/17/25 13:42 [email or web address] Anesthesia Complication emesis upon 03/17/25 13:44 [email or web address] Comment: emergence, suctioned,. lungs CTA Post-operative progress note Anesthesia: Postop Eval II Evaluation Mental status: Awake Pain Level: 0 nausea: No Vomiting: No 03/17/25 1457 Date Issac Louise Diggs Signature: Date CC: Signed Normal [facility] Magnesiumon 03-17-2025 Magnesium [Mass/Vol] 2.2 mg/dL Normal 1.5-2.2 [facility] Comment on above: Performed By: #### L 499.0042 #### [facility] [address] [place], [place], [address] Magnesium measurement (mass/ volume)Ordered By: Tia Bergman on 03-17-2025 Magnesium (Unsp spec) [Mass/Vol] 2.2 mg/dL 1.5-2.2 [facility] Phosphoruson 03-17-2025 Phosphate [Mass/Vol] 3.9 mg/dL Normal 2.7-4.5 [facility] Comment on above: Performed By: #### L 499.0042 #### [facility] [address] [place], [place], [address] Potassium measurement (mass/ volume)Ordered By: Tia Bergman on 03-17-2025 Potassium (Unsp spec) [Mass/Vol] 3.8 mmol/L 3.3-5.1 [facility] Serum creatinine measurement (mass/volume)Ordered By: Tia Bergman on 03-17-2025 Creatinine [Mass/Vol] 0.72 mg/dL 0.70-1.20 [facility] Serum glucose measurement (m ass/volume)Ordered By: Tia Bergman on 03-17-2025 Glucose [Mass/Vol] 181 mg/dL High 70-99 [facility] Serum or plasma calcium festus urement (mass/volume)Ordered By: Tia Bergman on 03-17-2025 Calcium [Mass/Vol] 8.6 mg/dL 7.6-11.0 [facility] Serum or plasma urea nitroge n measurement (mass/volume)Ordered By: Tia Bergman on 03-17-2025 Urea nitrogen [Mass/Vol] 9 mg/dL 4-19 [facility] Sodium levelOrdered By: Jessica Bergman on 03-17-2025 Sodium [Moles/Vol] 138 mmol/L 133-145 [facility] 12 Lead EKGon 03-16-2025 12 Lead EKG [facility] Cardiovascular Services [address] [place] [address] 12 Lead EKG 03/16/25 1212 MR#: [id number] Acct: [id number] Name: BIANCA DELAROSA Rep #: [id number] : 1975 49 From: Prince Vega MD Attending Dr: Dr. Jacky Jaimes DO Status: A DM IN Ordering Dr: Macey Merchant DO Date: 03/16/25 [place] [facility] [place] Sex: M C Admitted: 03/16/25 Test Reason : PALPS Blood Pressure : */* mmHG Vent. Rate : 90 BPM Atrial Rate : 90 BPM P-R Int : 186 ms QRS Dur : 104 ms QT Int : 376 ms P-R-T Axes : 46 -15 55 degrees QTcB Int : 459 ms Normal sinus rhythm Minimal voltage criteria for LVH, may be normal variant ( R in aVL ) POOR R WAVE PROGRESSION Abnormal ECG Confirmed by Prince Vega ([id number]), payroll officer JENN SIDHU ([id number]) on 03/17/2025 9:36:47 AM Referred By: CG Confirmed By: Prince Vega 03/17/25 0936 Date Prince Vega MD CC: Dr. Humberto Jackson MD; Dr. Jacky Jaimes DO; Dr. Macey Merchant DO Signed Normal [facility] Abdomen/Pelvis W IV Cont ONL Yon 03-16-2025 Abdomen/Pelvis W IV Cont ONLY [facility] Imaging Services [address] [place], [place] [address] Abdomen/Pelvis W IV Cont ONLY MR#: [id number] Acct: [id number] Name: BIANCA DELAROSA Rep #: [id number] : 1975 M 49 From: Anoop olivia MD PCP: Dr. Humberto Jackson MD Status: REG ER Study: Abdomen/Pelvis W IV Cont ONLY Date of Exam: Exam# [id number] Ordering Dr: Macey Merchant DO PROCEDURE: ABDOMEN/PELVIS W IV CONT ONLY 03/16/2025 REASON FOR EXAM: ABDOMINAL PAIN, ANEMIA, WEIGHT LOSS TECHNIQUE: Abdomen and pelvis CT with intravenous contrast. Coronal and Sagittal reconstruction series were provided. PATIENT PREPARATION: Per protocol ORAL CONTRAST TYPE: None. AMOUNT: mL CONTRAST: Omnipaque 350 VOLUME: 100 mL One or more dose reduction techniques were used (e.g., Automated exposure control, adjustment of the mA and/or kV according to patient size, use of iterative reconstruction technique. COMPARISON: None FINDINGS: Lung bases: 4 mm right lower lobe nodule (series 2, image 2). Liver: Diffuse steatosis. No focal lesion. Gallbladder: No ductal dilation. Gallbladder is collapsed. Spleen: No splenomegaly. Pancreas: Normal size without evidence of mass surrounding inflammation or ductal dilation. Adrenals: Unremarkable. Kidneys: Normal renal sizes. No hydronephrosis. Mild bilateral nonspecific perinephric soft tissue stranding. Bladder: Urinary bladder is unremarkable. Reproductive Organs: No pelvic mass. Bowel: Moderately distended stomach. There is circumferential wall thickening of the pylorus (series 601, image 60, series 2 image 38) with resultant luminal narrowing. Small bowel and colonic loops are otherwise nondistended. Moderate colonic stool. Colonic diverticulosis without diverticulitis. Appendix: Status post appendectomy. Lymph nodes: 18 mm lymph node above the greater omentum (series 2 image 22). A few other prominent/mildly enlarged retroperitoneal lymph nodes also noted. Vasculature: Mild diffuse atherosclerotic calcifications are noted. Peritoneum / Retroperitoneum: Trace ascites. Diffuse nodularity and stranding along the along the mesenteric, predominantly in the right upper quadrant and bilateral paracolic gutters. No pneumoperitoneum. Bones: There are innumerable small sclerotic lesions scattered throughout the lumbosacral spine, bilateral femoral head and neck and pubic bones.. Soft tissue: Small fat containing umbilical hernia. CT/Abdomen/Pelvis W IV Cont ONLY IMPRESSION: 1. Mildly distended stomach, secondary to gastric pylorus circumferential wall thickening and resultant luminal narrowing. Findings concerning for an underlying obstructive gastric mass/outlet obstruction. Recommend further evaluation with endoscopy. 2. Multiple prominent-mildly enlarged retroperitoneal nodes. 3. Diffuse nodularity within the anterior mesentery and bilateral paracolic gutters, concerning for peritoneal carcinomatosis. 4. Multiple sclerotic osseous lesions concerning for osseous metastasis. Reading Location: [facility] CC: Dr. Humberto Jackson MD; Dr. Macey Merchant DO Drill Setup Operator: Signed Normal [facility] Absolute lymphocyte countOrd ered By: ED PROVIDER on 03-16-2025 Lymphocytes Auto (Unsp spec) [#/Vol] 2.38 10*3/uL 0.83-4.51 [facility] Absolute neutrophil countOrd ered By: ED PROVIDER on 03-16-2025 Neutrophils (Bld) [#/Vol] 4.8 10*3/uL 2.0-7.7 [facility] Anion gap in Serum or Plasma Ordered By: Macey Merchant on 03-16-2025 Anion gap [Moles/Vol] 12 mmol/L 5-15 [facility] Automated lymphocyte count a s percentage of total leukocytesOrdered By: ED PROVIDER on 03-16-2025 Lymphocytes/100 WBC Auto (Unsp spec) 30.2 % 19-41 [facility] BRCon 03-16-2025 RC Normal [facility] Comment on above: Result Comment: [id number] OP RC TRANSFUSED 03/18/251934 [id number] OP RC TRANSFUSED 03/18/25 1528 Performed By: #### B RC #### [facility] [address] [place], [address] Result Comment: [id number] OP RC TRANSFUSED 03/16/25 1426 BUN/creatinine ratioOrdered By: Macey Merchant on 03-16-2025 Urea nitrogen/Creatinine [Mass ratio] 15.6 mg/mg - [facility] Basic Metabolic Profile (BMP )on 03-16-2025 BUN/CRE 15.6 RATIO Normal 07-28 [facility] Comment on above: Performed By: #### L 100.0100, L500.2500, L501.4021 #### [facility] [address] [place], [address] Calcium [Mass/Vol] 8.9 mg/dL Normal 7.6-11.0 [facility] Comment on above: Performed By: #### L 100.0100, L500.2500, L501.4021 #### [facility] [address] [place], [address] Chloride [Moles/Vol] 102 mmol/L Normal 98-108 [facility] Comment on above: Performed By: #### L 100.0100, L500.2500, L501.4021 #### [facility] [address] [place], [address] CO2 [Moles/Vol] 22.2 mmol/L Normal 21.0-32.0 [facility] Comment on above: Performed By: #### L 100.0100, L500.2500, L501.4021 #### [facility] [address] [place], [address] Creatinine [Mass/Vol] 0.83 mg/dL Normal 0.70-1.20 [facility] Comment on above: Performed By: #### L 100.0100, L500.2500, L501.4021 #### [facility] [address] [place], [address] ECRCL 148.05 ml/min Normal 50-250 [facility] Comment on above: Performed By: #### L 100.0100, L500.2500, L501.4021 #### [facility] [address] [place], [address] GAP 12 Normal 5-15 [facility] Comment on above: Performed By: #### L 100.0100, L500.2500, L501.4021 #### [facility] [address] [place], [address] GFR/1.73 sq M.predicted among non-blacks MDRD (S/P/Bld) [Vol rate/Area] 107 mL/min/{1.73_m2} Normal >60 [facility] Comment on above: Result Comment: mL/m in/1.73m2 CKD-EPI Creatinine Equation (2020) Performed By: #### L 100.0100, L500.2500, L501.4021 #### [facility] [address] [place], [address] Glucose [Mass/Vol] 238 mg/dL High 70-99 [facility] Comment on above: Performed By: #### L 100.0100, L500.2500, L501.4021 #### [facility] [address] [place], [address] Potassium [Moles/Vol] 3.9 mmol/L Normal 3.3-5.1 [facility] Comment on above: Performed By: #### L 100.0100, L500.2500, L501.4021 #### [facility] [address] [place], [address] Sodium [Moles/Vol] 136 mmol/L Normal 133-145 [facility] Comment on above: Performed By: #### L 100.0100, L500.2500, L501.4021 #### [facility] [address] [place], [address] Urea nitrogen [Mass/Vol] 13 mg/dL Normal 4-19 [facility] Comment on above: Performed By: #### L 100.0100, L500.2500, L501.4021 #### [facility] [address] [place], [address] Basophil percentageOrdered B y: ED PROVIDER on 03-16-2025 Basophils/100 WBC (Bld) 0.9 % 0-1 [facility] Bedside Glucoseon 03-16-2025 FINGERSTICK GLU 177 mg/dL High 74-106 [facility] Comment on above: Result Comment: KAUSHAL YBARRA OF PATIENT CARE PER NURSING PROTOCOL Performed By: #### L 100.0100, L500.2500, L501.4021 #### [facility] [address] [place], [address] Bilirubin directOrdered By: Tia Bergman on 03-16-2025 Bilirubin.direct [Mass/Vol] mg/dL 0.00-0.30 [facility] Bilirubin, totalOrdered By: Tia Bergman on 03-16-2025 Bilirubin [Mass/Vol] mg/dL 0.00-1.30 [facility] CBC W/Diff, Automatedon Absolute Lymph 2.38 X10 3/uL Normal 0.83-4.51 [facility] Comment on above: Performed By: #### L 100.0100, L500.2500, L501.4021 #### [facility] [address] [place], [address] Absolute Neut 4.8 X10 3/uL Normal 2.0-7.7 [facility] Comment on above: Performed By: #### L 100.0100, L500.2500, L501.4021 #### [facility] [address] [place], [address] Basophils/100 WBC (Bld) 0.9 % Normal 0-1 [facility] Comment on above: Performed By: #### L 100.0100, L500.2500, L501.4021 #### [facility] [address] [place], [address] Eosinophils/100 WBC (Bld) 2.0 % Normal 0-5 [facility] Comment on above: Performed By: #### L 100.0100, L500.2500, L501.4021 #### [facility] [address] [place], [address] Erythrocyte distribution width (RBC) [Ratio] 14.5 % Normal 11.6-14.6 [facility] Comment on above: Performed By: #### L 100.0100, L500.2500, L501.4021 #### [facility] [address] [place], [address] Hematocrit (Bld) [Volume fraction] 24.3 % Low 40-54 [facility] Comment on above: Performed By: #### L 100.0100, L500.2500, L501.4021 #### [facility] [address] [place], [address] Hemoglobin (Bld) [Mass/Vol] 7.2 g/dL Low 13.0-16.5 [facility] Comment on above: Performed By: #### L 100.0100, L500.2500, L501.4021 #### [facility] [address] [place], [address] IG% 0.500 Normal 0.0-0.9 [facility] Comment on above: Result Comment: IG% - Immature Granulocytes (promyelocytes, myelocytes and metamyelocytes) > 1% indicates that a LEFT SHIFT is Present. Performed By: #### L 100.0100, L500.2500, L501.4021 #### [facility] [address] [place], [address] Lymphocytes/100 WBC (Bld) 30.2 % Normal 19-41 [facility] Comment on above: Performed By: #### L 100.0100, L500.2500, L501.4021 #### [facility] [address] [place], [address] MCH (RBC) [Entitic mass] 22.8 pg Low 27.0-32.0 [facility] Comment on above: Performed By: #### L 100.0100, L500.2500, L501.4021 #### [facility] [address] [place], [address] MCHC (RBC) [Mass/Vol] 29.6 g/dL Low 32-36 [facility] Comment on above: Performed By: #### L 100.0100, L500.2500, L501.4021 #### [facility] [address] [place], [address] MCV (RBC) [Entitic vol] 76.9 fL Low 80-94 [facility] Comment on above: Performed By: #### L 100.0100, L500.2500, L501.4021 #### [facility] [address] [place], [address] Monocytes/100 WBC (Bld) 6.1 % Normal 0-10 [facility] Comment on above: Performed By: #### L 100.0100, L500.2500, L501.4021 #### [facility] [address] [place], [address] Neutrophils/100 WBC (Bld) 60.3 % Normal 47-70 [facility] Comment on above: Performed By: #### L 100.0100, L500.2500, L501.4021 #### [facility] [address] [place], [address] Nucleated RBC (Bld) [#/Vol] 0.3 10*3/uL Normal 0-5 [facility] Comment on above: Performed By: #### L 100.0100, L500.2500, L501.4021 #### [facility] [address] [place], [address] Platelet mean volume (Bld) [Entitic vol] 11.5 fL Normal 6.2-12.0 [facility] Comment on above: Performed By: #### L 100.0100, L500.2500, L501.4021 #### [facility] [address] [place], [address] Platelets (Bld) [#/Vol] 399 10*3/uL Normal 150-450 [facility] Comment on above: Performed By: #### L 100.0100, L500.2500, L501.4021 #### [facility] [address] [place], [address] RBC (Bld) [#/Vol] 3.16 10*6/uL Low 4.6-6.2 [facility] Comment on above: Performed By: #### L 100.0100, L500.2500, L501.4021 #### [facility] [address] [place], [address] RDW SD 39.8 fl Normal 35.1-43.9 [facility] Comment on above: Performed By: #### L 100.0100, L500.2500, L501.4021 #### [facility] [address] [place], [address] WBC (Bld) [#/Vol] 7.9 10*3/uL Normal 4.4-11.0 [facility] Comment on above: Performed By: #### L 100.0100, L500.2500, L501.4021 #### [facility] [address] [place], [address] Carbon dioxide, total [Moles /volume] in Central venous bloodOrdered By: Macey Merchant on 03-16-2025 CO2 [Moles/Vol] 22.2 mmol/L 21.0-32.0 [facility] Chest 1 View (Portable)on Chest 1 View (Portable) [facility] Imaging Services [address] [place] [address] Chest 1 View (Portable) MR#: [id number] Acct: [id number] Name: BIANCA DELAROSA Rep #: [id number] : 1975 M 49 From: Jason Peterson DO PCP: Dr. Humberto Jackson MD Status: REG ER Study: Chest 1 View (Portable) Date of Exam: 03/16/25 Exam# [id number] Ordering Dr: Macey Merchant DO PROCEDURE: CHEST 1 VIEW (PORTABLE) 03/16/2025 REASON FOR EXAM: CHEST PAIN Palpitations, dizziness and shortness of breath TECHNIQUE: Frontal view of the chest. COMPARISON: CT chest 12/31/2018 FINDINGS: Hardware: EKG lead wires Heart: Normal size Lungs: Clear Bones: Unremarkable Other: RAD/Chest 1 View (Portable) IMPRESSION: No acute process Reading Location: [facility] CC: Dr. Humberto Jackson MD; Dr. Macey Merchant DO Drill Setup Operator: Signed Normal [facility] Chloride assayOrdered By: Sepideh Merchant on 03-16-2025 Chloride [Moles/Vol] 102 mmol/L 98-108 [facility] Emergency Department Summary on 03-16-2025 Emergency Department Summary [facility] Medical Records Department [address] [place] [address] Emergency Department Summary 03/16/25 MR#: [id number] Acct: [id number] Name: BIANCA DELAROSA Rep #: [id number] : 1975 49 From: Macey Merchant DO PCP: Dr. Humberto Jackson MD Status:ADM IN Location: [place] [address] HPI History of Present Illness Chief Complaint: Palpitations Detail of Chief Complaint: Weakness, dyspnea, racing heart Informant: patient Narrative Narrative: Patient presents the emergency department complaint of not feeling well for over a week and a half. Patient states that he saw primary care physician who did some blood work and noted that he was anemic with hemoglobin of 9 over a week ago. Patient was scheduled to have a colonoscopy later this month. He was started on iron. He continues to not feel well. Complains of feeling lightheaded and dizzy with standing and heart racing. Denies blood in his stool or black tarry stool. Patient states he has not had a good bowel movement in 3 days and he attributes that to the iron. He denies fevers chills or sweats. He has had about an 18 pound weight loss in the last month because he is just not been eating as much and is cut his portion sizes. There is a family history of colon cancer. [facility] Medical History History of rectal abscess Multiple [...] mg 40 mg PO QHS gerd 10/10/17 9 History capsule,delayed release fenofibrate 50 mg capsule 54 mg PO DAILY cholesterol 8 10/20/18 History multivitamin 1 ea PO DAILY supplement 10/10/17 10/20/18 History atorvastatin 20 mg tablet 20 mg PO DAILY 03/22/18 10/20/18 H istory fluoxetine 40 mg capsule 60 mg PO QDAY 03/22/18 10/20/18 Hi story metformin 500 mg tablet 1,000 mg PO BID diabetes 03/22/18 10/20/18 History Fish Oil 1,000 mg Capsule 1,000 mg PO BID 10/20/18 10/20/18 History doxepin 10 mg capsule 10 mg PO QHS 10/20/18 10/19/18 His tory olanzapine 2.5 mg tablet 2.5 mg PO QHS 10/20/18 10/19/18 Hi story zonisamide 25 mg capsule 25 mg PO DAILY 10/20/18 10/20/18 H istory empagliflozin 25 mg tablet 25 mg PO DAILY #30 tabs 10/22/18 U nknown Rx buspirone 15 mg tablet mg 04/14/23 Unknown History duloxetine 60 mg capsule,delayed mg PO 04/14/23 Unknown History release fluticasone propionate 50 1 spray intranasal DAILY PRN 04/14 Unknown History mcg/actuation nasal allergic symptoms spray,suspension insulin lispro protamine-lispro subcut 04/14/23 Unknown History 100 unit/mL (75-25) subcutaneous pen methylphenidate HCl 10 mg biphasic mg PO 04/14/23 Unknown History 50-50 capsule,extended release amoxicillin 875 mg-potassium 1 tab PO Q12H #14 tabs 03/10/24 Un known Rx clavulanate 125 mg tablet oxycodone-acetaminophen 5 mg-325 1 - 2 tab PO Q6H PRN pain 3 days 0 03/10/24 Unknown Rx mg tablet #14 tabs Allergy/AdvReac Type Severity Reaction Status Date / Time citalopram Allergy Unknown Unknown Verified 03/16/25 12:07 venlafaxine Allergy Unknown Unknown Verified 03/16/25 12:07 metoclopramide (From Reglan) Allergy weirds me Verified 03/16/25 12:07 out sertraline (From Zoloft) Allergy sexual Verified 03/16/25 12:07 side effects topiramate (From Topamax) Allergy Unknown Verified 03/16/25 12:07 Family History Father Colon cancer at age 53 Heart disease Myocardial infarction Surgical History Hx of drainage of abscess ( 04/2023) Hx of appendectomy Hx of tonsillectomy Social History Smoking Status: Never smoker second hand exposure: No alcohol intake: never substance use type: does not use caffeine: Yes what type of physical activity do you participate in: none frequency: does not exercise seatbelt use: always ROS ROS ED Review of Systems ROS Unobtainable: other Constitutional Constitutional ED: Reports lethargy; Denies chills, fever(s), sweats or weight loss Eyes Eyes: Denies blurry vision, change in vision or diplopia ENT ENT ED: Denies rhinorrhea or sore throat Cardiovascular Cardiovascular: Reports chest pain and racing heartbeat; Denies orthopnea Respiratory/Chest Respira (more content not included)... Normal [facility] Eosinophil percentageOrdered By: ED PROVIDER on 03-16-2025 Eosinophils/100 WBC (Bld) 2.0 % 0-5 [facility] Erythrocyte distribution wid th ratioOrdered By: ED PROVIDER on 03-16-2025 Erythrocyte distribution width (RBC) [Ratio] 14.5 % 11.6-14.6 [facility] Erythrocyte distribution wid th standard deviationOrdered By: ED PROVIDER on 03-16-2025 Erythrocyte distribution width (RBC) [Ratio] 39.8 fl 35.1-43.9 [facility] Ferritinon 03-16-2025 Ferritin [Mass/Vol] 5 ng/mL Low 37-417 [facility] Comment on above: Performed By: #### L 100.0100, L500.2500, L501.4021 #### [facility] [address] [facility] [place], [place], [address] Glomerular filtration rate ( GFR) estimation/1.73 sq m using serum, plasma, or whole bOrdered By: Macey Merchant on 03-16-2025 GFR/1.73 sq M.predicted among non-blacks MDRD (S/P/Bld) [Vol rate/Area] 107 mL/min/{1.73_m2} >60 [facility] Comment on above: mL/min/1.73m2 CKD-EP I Creatinine Equation (2020) H AND P Exam - Hospitaliston 03-16-2025 H&P Exam - Hospitalist [facility] Medical Records Department [address] [place] [address] H P Exam - Hospitalist 03/16/25 1509 MR#: [id number] Acct: [id number] Name: BIANCA DELAROSA Rep #: [id number] : 1975 49 From: Tia Bergman DO PCP: Dr. Humberto Raya, MD Status:ADM IN Location: MS3 [id number] [facility] - General General Date of Admission: 03/16/25 Date of Service: 03/16/25 Chief Complaint: Weakness/Dyspnea/Tachycard ia HPI Narrative BIANCA DELAROSA, is a 49 M who presented to the emergency department at [facility] on 03/16/2025 with weakness, exertional dyspnea and exertional tachycardia. Patient reports that over the last 4 months or so he has had unexplained weight loss and slowly worsening generalized weakness with exertional dyspnea and exertional tachycardia. Yesterday symptoms were dramatically worse and he almost felt like he was going to pass out. He had no fever or chills. He was noted to have an anemia with a hemoglobin of 9 about a week ago with previous hemoglobin being between 14-15 12 months ago. He was scheduled have a colonoscopy later this month over at [facility]. He denies noting any black tarry stools or blood in his stool. He states that people have told him he he looks more pale than typical but he had not noticed any change. He states he has not been as hungry and has had some early satiety. Vital signs on presentation showed temperature of 98.4, heart rate 99, respiratory rate 18, blood pressure is 144/88 and pulse ox was 99% on room air. CBC shows a normal white count but he has a microcytic anemia with a hemoglobin of 7.2. Platelet count is normal. Coags were normal. Chemistry panel was unremarkable. Glucose was 238. Initial troponin was 10 and repeat was 6. EKG is sinus rhythm and shows no ST-T wave changes concerning for acute ischemia and has normal intervals. Chest x-ray showed no acute process. CT of the abdomen pelvis was markedly abnormal with a mildly distended stomach secondary to gastric pylorus circumferential wall thickening and resultant luminal narrowing with findings concerning for underlying obstructive gastric mass or outlet obstruction, multiple prominent retroperitoneal lymph nodes and diffuse nodularity within the anterior mesentery and bilateral paracolic gutters concerning for peritoneal carcinomatosis. There were also multiple sclerotic osseous lesions that were concerning for osseous metastasis. Given his symptomatic anemia, he was given a unit of blood and the case was discussed with gastroenterology who will see the patient in consultation tomorrow for probable EGD. [facility] Medical History History of rectal abscess Multiple [...] mg 40 mg PO QHS gerd 10/10/17 9 History capsule,delayed release fenofibrate 50 mg capsule 54 mg PO DAILY cholesterol 8 10/20/18 History multivitamin 1 ea PO DAILY supplement 10/10/17 10/20/18 History atorvastatin 20 mg tablet 20 mg PO DAILY 03/22/18 10/20/18 H istory fluoxetine 40 mg capsule 60 mg PO QDAY 03/22/18 10/20/18 Hi story metformin 500 mg tablet 1,000 mg PO BID diabetes 03/22/18 10/20/18 History Fish Oil 1,000 mg Capsule 1,000 mg PO BID 10/20/18 10/20/18 History doxepin 10 mg capsule 10 mg PO QHS 10/20/18 10/19/18 His tory olanzapine 2.5 mg tablet 2.5 mg PO QHS 10/20/18 10/19/18 Hi story zonisamide 25 mg capsule 25 mg PO DAILY 10/20/18 10/20/18 H istory empagliflozin 25 mg tablet 25 mg PO DAILY #30 tabs 10/22/18 U nknown Rx buspirone 15 mg tablet mg 04/14/23 Unknown History duloxetine 60 mg capsule,delayed mg PO 04/14/23 Unknown History release fluticasone propionate 50 1 spray intranasal DAILY PRN 04/14 Unknown History mcg/actuation nasal allergic symptoms spray,suspension insulin lispro protamine-lispro subcut 04/14/23 Unknown History 100 unit/mL (75-25) subcutaneous pen methylphenidate HCl 10 mg biphasic mg PO 04/14/23 Unknown History 50-50 capsule,extended release amoxicillin 875 mg-potassium 1 tab PO Q12H #14 tabs 03/10/24 Un known Rx clavulanate 125 mg tablet oxycodone-acetaminophen 5 mg-325 1 - 2 tab PO Q6H PRN pain 3 days 0 03/10/24 Unknown Rx mg tablet #14 tabs Allergy/AdvReac Type Severity Reaction Status Date / Time citalopram Allergy (more content not included)... Normal [facility] HH, Hemoglobin AND Hematocri ton 03-16-2025 Hematocrit (Bld) [Volume fraction] 25.3 % Low [address] Comment on above: Performed By: #### L 100.0100, L500.2500, L501.4021 #### [facility] [address] [place], [address] Hemoglobin (Bld) [Mass/Vol] 7.9 g/dL Low 13.0-16.5 [facility] Comment on above: Performed By: #### L 100.0100, L500.2500, L501.4021 #### [facility] [address] [place], [address] Hematocrit (Bld) [Volume fraction] 24.4 % Low [address] Comment on above: Order Comment: STILL RECEIVING BLOOD OF 1610. Performed By: #### L 100.0100, L500.2500, L501.4021 #### [facility] [address] [place], [address] Hemoglobin (Bld) [Mass/Vol] 7.6 g/dL Low 13.0-16.5 [facility] Comment on above: Order Comment: STILL RECEIVING BLOOD OF 1610. Performed By: #### L 100.0100, L500.2500, L501.4021 #### [facility] [address] [place], [address] Hematocrit Auto (Bld) [Volum e fraction]Ordered By: ED PROVIDER on 03-16-2025 Hematocrit (Bld) [Volume fraction] 24.3 % Low [address] [place] [address] Hemoglobin A1c percentageOrd ered By: Tia Bergman on 03-16-2025 HbA1c (Bld) [Mass fraction] 8.4 % High <5.7 [facility] Comment on above: Normal < 5.7 % Predi abetic 5.7 - 6.4 % Diabetic >or= 6.5 % Please note range changes. Hemoglobin measurementOrdere d By: ED PROVIDER on 03-16-2025 Hemoglobin (Bld) [Mass/Vol] 7.2 g/dL Low 13.0-16.5 [facility] Immature granulocytes/100 WB C Auto (Bld)Ordered By: ED PROVIDER on 03-16-2025 Immature granulocytes/100 WBC (Bld) 0.500 % 0.0-0.9 [facility] Comment on above: IG% - Immature Granu locytes (promyelocytes, myelocytes and metamyelocytes) > 1% indicates that a LEFT SHIFT is Present. Iron measurement (mass/mass) Ordered By: Tia Bergman on 03-16-2025 Iron (Unsp spec) [Mass/Mass] 36 ug/dL Low 65-175 [facility] Iron+Iron Binding Capacityon 03-16-2025 Iron [Mass/Vol] 36 ug/dL Low 65-175 [facility] Comment on above: Performed By: #### L 100.0100, L500.2500, L501.4021 #### [facility] [address] [place], [address] IRON SATURATION 10.0 Normal 9-55 [facility] Comment on above: Performed By: #### L 100.0100, L500.2500, L501.4021 #### [facility] [address] [place], [address] TIBC 364 ug/dL Normal 250-450 [facility] Comment on above: Performed By: #### L 100.0100, L500.2500, L501.4021 #### [facility] [address] [place], [address] UIBC 328 ug/dL Normal 228-428 [facility] Comment on above: Performed By: #### L 100.0100, L500.2500, L501.4021 #### [facility] [address] [place], [address] L499.0042on 03-16-2025 Trop T High Sen 6 ng/L Normal <=22 [facility] Comment on above: Performed By: #### L 499.0042 #### [facility] [address] [place], [address] L499.0043on 03-16-2025 Trop T High Sen < 6 Normal <=22 [facility] Comment on above: Order Comment: MUNAI ZARINA BLOOD OF 0. Performed By: #### L 100.0100, L500.2500, L501.4021 #### [facility] [address] [place], [address] L501.4021on 03-16-2025 Trop T High Sen 10 ng/L Normal <=22 [facility] Comment on above: Performed By: #### L 100.0100, L500.2500, L501.4021 #### [facility] [address] [place], [address] Laboratory - Chemistry and C hemistry - challengeOrdered By: Tia Bergman on 03-16-2025 AST [Catalytic activity/Vol] 15 U/L <38 [facility] Liver Profileon 03-16-2025 Albumin [Mass/Vol] 4.0 g/dL Normal 3.5-5.0 [facility] Comment on above: Performed By: #### L 100.0100, L500.2500, L501.4021 #### [facility] [address] [place], [address] ALK PHOS 175 U/L High 40-129 [facility] Comment on above: Performed By: #### L 100.0100, L500.2500, L501.4021 #### [facility] [address] [place], [address] ALT [Catalytic activity/Vol] 6 U/L Normal <=46 [facility] Comment on above: Performed By: #### L 100.0100, L500.2500, L501.4021 #### [facility] [address] [place], [address] AST [Catalytic activity/Vol] 15 U/L Normal <=37 [facility] Comment on above: Performed By: #### L 100.0100, L500.2500, L501.4021 #### [facility] [address] [place], [address] D BILI < 0.08 Normal 0.00-0.30 [facility] Comment on above: Performed By: #### L 100.0100, L500.2500, L501.4021 #### [facility] [address] [place], [address] Globulin (S) [Mass/Vol] 2.1 g/dL Low 2.2-4.2 [facility] Comment on above: Performed By: #### L 100.0100, L500.2500, L501.4021 #### [facility] [address] [place], [address] T BILI < 0.15 Normal 0.00-1.30 [facility] Comment on above: Performed By: #### L 100.0100, L500.2500, L501.4021 #### [facility] [address] [place], [address] T PROT 6.0 g/dL Normal 5.9-8.4 [facility] Comment on above: Performed By: #### L 100.0100, L500.2500, L501.4021 #### [facility] [address] [place], [address] MCV (mean corpuscular volume ) determinationOrdered By: ED PROVIDER on 03-16-2025 MCV (RBC) [Entitic vol] 76.9 fL Low 80-94 [facility] Mean corpuscular hemoglobin (MCH) determinationOrdered By: ED PROVIDER on 03-16-2025 MCH (RBC) [Entitic mass] 22.8 pg Low 27.0-32.0 [facility] Mean corpuscular hemoglobin concentration (MCHC) determinationOrdered By: ED PROVIDER on 03-16-2025 MCHC (RBC) [Mass/Vol] 29.6 g/dL Low 32-36 [facility] Mean platelet volume determi nationOrdered By: ED PROVIDER on 03-16-2025 Platelet mean volume (Bld) [Entitic vol] 11.5 fL 6.2-12.0 [facility] Monocyte percentageOrdered B y: ED PROVIDER on 03-16-2025 Monocytes/100 WBC (Bld) 6.1 % 0-10 [facility] Neutrophil percentageOrdered By: ED PROVIDER on 03-16-2025 Neutrophils/100 WBC (Bld) 60.3 % 47-70 [facility] No Panel InformationOrdered By: Tia Bergman on 03-16-2025 Unsaturated Iron Binding Capacity 328 ug/dL 228-428 [facility] Nucleated red blood cell per centageOrdered By: ED PROVIDER on 03-16-2025 Nucleated RBC/100 WBC (Bld) [Ratio] 0.3 % 0-5 [facility] Platelet countOrdered By: ED PROVIDER on 03-16-2025 Platelets (Bld) [#/Vol] 399 10*3/uL 150-450 [facility] Potassium measurement (mass/ volume)Ordered By: Macey Merchant on 03-16-2025 Potassium (Unsp spec) [Mass/Vol] 3.9 mmol/L 3.3-5.1 [facility] RBC Auto (Bld) [#/Vol]Ordere d By: ED PROVIDER on 03-16-2025 RBC (Bld) [#/Vol] 3.16 10*6/uL Low 4.6-6.2 [facility] Retic Panelon 03-16-2025 IM RET FRACTION 41.40 High 3.00-15.90 [facility] Comment on above: Performed By: #### L 100.0100, L500.2500, L501.4021 #### [facility] [address] [place], [place], [id number] [phone] RET-HE 21.4 pg Low 30-35 [facility] Comment on above: Performed By: #### L 100.0100, L500.2500, L501.4021 #### [facility] [address] [place], [address] Retic Count 4.05 High 0.5-1.5 [facility] Comment on above: Performed By: #### L 100.0100, L500.2500, L501.4021 #### [facility] [address] [place], [address] Reticulocyte hemoglobin equi valent (RET-He) measurementOrdered By: Tia Bergman on 03-16-2025 Hemoglobin (Reticulocytes) [Entitic mass] 21.4 pg Low 30-35 [facility] Reticulocytes Auto (Bld) [#/ Vol]Ordered By: Tia Bergman on 03-16-2025 Reticulocytes/100 RBC (Bld) 4.05 % High 0.5-1.5 [facility] Serum creatinine measurement (mass/volume)Ordered By: Macey Merchant on 03-16-2025 Creatinine [Mass/Vol] 0.83 mg/dL 0.70-1.20 [facility] Serum globulin measurementOr dered By: Tia Bergman on 03-16-2025 Globulin (S) [Mass/Vol] 2.1 g/dL Low 2.2-4.2 [facility] Serum glucose measurement (m ass/volume)Ordered By: Macey Merchant on 03-16-2025 Glucose [Mass/Vol] 238 mg/dL High 70-99 [facility] Serum or plasma alanine linda otransferase (ALT) measurementOrdered By: Tia Bergman on 03-16-2025 ALT [Catalytic activity/Vol] 6 U/L <47 [facility] Serum or plasma albumin festus urement (mass/volume)Ordered By: Tia Bergman on 03-16-2025 Albumin [Mass/Vol] 4.0 g/dL 3.5-5.0 [facility] Serum or plasma alkaline komal sphatase measurementOrdered By: Tia Bergman on 03-16-2025 ALP [Catalytic activity/Vol] 175 U/L High 40-129 [facility] Serum or plasma calcium festus urement (mass/volume)Ordered By: Macey Merchant on 03-16-2025 Calcium [Mass/Vol] 8.9 mg/dL 7.6-11.0 [facility] Serum or plasma ferritin andrey surement (mass/volume)Ordered By: Tia Bergman on 03-16-2025 Ferritin [Mass/Vol] 5 ng/mL Low 37-417 [facility] Serum or plasma iron saturat ion measurement (mass fraction)Ordered By: Tia Bergman on 03-16-2025 Iron saturation [Mass fraction] 10.0 % 9-55 [facility] Serum or plasma urea nitroge n measurement (mass/volume)Ordered By: Macey Merchant on 03-16-2025 Urea nitrogen [Mass/Vol] 13 mg/dL 4-19 [facility] Sodium levelOrdered By: Janice Merchant on 03-16-2025 Sodium [Moles/Vol] 136 mmol/L 133-145 [facility] Stool Occult Blood iFOBon STOB Negative Normal [facility] Comment on above: Performed By: #### B RC #### [facility] [address] [place], [place], [address] Stool gastrointestinal hemog lobin detection by immunologic methodOrdered By: Macey Merchant on 03-16-2025 Lower GI hemoglobin IA Ql (Stl) [facility] Total proteinOrdered By: Taimka Bergman on 03-16-2025 Protein [Mass/Vol] 6.0 g/dL 5.9-8.4 [facility] Troponin T.cardiac [Mass/vol ume] in Serum or Plasma by High sensitivity methodOrdered By: Macey Merchant on 03-16-2025 Troponin T.cardiac High sensitivity method [Mass/Vol] < 6 ng/L <22 [facility] Troponin T.cardiac High sensitivity method [Mass/Vol] 6 ng/L <22 [facility] Troponin T.cardiac High sensitivity method [Mass/Vol] 10 ng/L <22 [facility] Type AND Screenon 03-16-2025 Ab SCREEN GEL Negative Normal [facility] Comment on above: Order Comment: A Performed By: #### B RC #### [facility] [address] [place], [place], [address] ABO and Rh group Nom (Bld) Blood group O Rh(D) positive Normal [facility] Comment on above: Order Comment: A Performed By: #### B RC #### [facility] [address] [place], [place], [id number] White blood cell (WBC) count Ordered By: ED PROVIDER on 03-16-2025 WBC (Bld) [#/Vol] 7.9 10*3/uL 4.4-11.0 [facility] CNOVon 03-10-2025 CNOV Normal [facility] CNPNon 03-10-2025 CNPN Normal [facility] CNPNon 03-07-2025 CNPN Normal [facility] FERRITINon 03-07-2025 Ferritin [Mass/Vol] 5.9 ng/mL Low 30.3 - 565.7 ng/mL [facility] FOLATE, SERUMon 03-07-2025 Folate [Mass/Vol] 8.7 ng/mL 4.7 - PINF ng/mL [facility] Ferritin SerPl-mCncon 2024 Ferritin [Mass/Vol] 5.9 ng/mL Low 30.3-565.7 [facility] Comment on above: Order Comment: Speci men Type: BLOOD SPECIMEN Ordering Facility: [facility] Address: [address] [place] [address] Performed By: #### 2 276-4, 2284-8, 2132-9, 83114-3 #### [facility] CLIA [id number] [address] [place] [address] [place] Folate SerPl-mCncon 03-07-20 Folate [Mass/Vol] 8.7 ng/mL Normal >4.7 [facility] Comment on above: Order Comment: Speci men Type: BLOOD SPECIMEN Ordering Facility: [facility] Address: [address] [place] [address] Performed By: #### 2 276-4, 2283-8, 9, 84336-0 #### [facility] CLIA [id number] [address] Iron and Iron binding capaci ty panelon 03-07-2025 Iron [Mass/Vol] 17 ug/dL Low 41 - 186 ug/dL [facility] Iron binding capacity [Mass/Vol] 387 ug/dL High 232 - 386 ug/dL [facility] Iron saturation [Mass fraction] 4.4 % Low 15.0 - 57.0 % [facility] Iron [Mass/Vol] 17 ug/dL Low 41-186 [facility] Comment on above: Order Comment: Speci men Type: BLOOD SPECIMEN Ordering Facility: [facility] Address: [address] [place] [address] Performed By: #### 2 276-4, 8, 2132-06, #### [facility] CLIA [id number] [address] Iron binding capacity [Mass/Vol] 387 ug/dL High 232-386 [facility] Comment on above: Order Comment: Speci men Type: BLOOD SPECIMEN Ordering Facility: [facility] Address: [address] [place] [address] Performed By: #### 2 276-4, 8, 9, 26610-1 #### [facility] CLIA [id number] [address] Iron saturation [Mass fraction] 4.4 % Low 15.0-57.0 [facility] Comment on above: Order Comment: Speci men Type: BLOOD SPECIMEN Ordering Facility: [facility] Address: [address] [place] [address] Performed By: #### 2 276-4, 8, 9, 41832-8 #### [facility] CLIA [id number] [address] [place] No Panel Informationon 03-07 Interpretation and review of laboratory results Normal [facility] Interpretation and review of laboratory results Abnormal [facility] VITAMIN B12on 03-07-2025 Cobalamin (Vitamin B12) [Mass/Vol] 295 pg/mL 232 - 1245 pg/mL [facility] Vit B12 SerPl-mCncon 025 Cobalamin (Vitamin B12) [Mass/Vol] 295 pg/mL Normal 232-1245 [facility] Comment on above: Order Comment: Speci men Type: BLOOD SPECIMEN Ordering Facility: [facility] Address: [address] [place] [address] Performed By: #### 2 276-4, 2284-8, 2132-9, 41506-6 #### [facility] CLIA [id number] [address] [place] [address] [place] Basic metabolic 2000 panelon 03-06-2025 Anion gap [Moles/Vol] 14 mmol/L Normal 8-15 [place] Comment on above: Order Comment: Speci men Type: BLOOD SPECIMENOrdering Facility: [facility] Address: [address] [place] [address] Performed By: #### 3 016-3, 89708-4 ####[facility] LABCLIA [id number] [place] [address] [place] Calcium [Mass/Vol] 8.8 mg/dL Normal 8.5-10.2 [facility] Comment on above: Order Comment: Speci men Type: BLOOD SPECIMENOrdering Facility: [facility] Address: [address] [place], [place] [address] Performed By: #### 3 016-3, 07806-9 ####[facility] LABCLIA [id number] [place] [address] [place] Chloride [Moles/Vol] 101 mmol/L Normal 98-107 [facility] Comment on above: Order Comment: Speci men Type: BLOOD SPECIMENOrdering Facility: [facility] Address: [address] [place] [address] Performed By: #### 3 016-3, 28122-1 ####[facility] LABCLIA [id number] [place] [address] [place] CO2 [Moles/Vol] 22 mmol/L Normal 22-30 [facility] Comment on above: Order Comment: Speci men Type: BLOOD SPECIMENOrdering Facility: [facility] Address: [address] [place] [address] Performed By: #### 3 016-3, 09516-7 ####[facility] LABIA [id number] [place] [address] [place] Creatinine [Mass/Vol] 0.79 mg/dL Normal 0.73-1.22 [place] Comment on above: Order Comment: Speci men Type: BLOOD SPECIMENOrdering Facility: [facility] Address: [address] [place] [address] Performed By: #### 3 016-3, 41859-5 ####[facility] [id number] [place] [address] [place] Creatinine and Glomerular filtration rate.predicted panel (S/P/Bld) 108 mL/min/1.73m??? Normal >=60 [facility] Comment on above: Order Comment: Speci men Type: BLOOD SPECIMENOrdering Facility: [facility] Address: [address] [place] [address] Result Comment: Tia mated Glomerular Filtration Rate [...] accurately reflect actual GFR. Performed By: #### 3 016-3, 07070-6 ####[facility] LABIA [id number] [address] [address] [place] Glucose [Mass/Vol] 171 mg/dL High 74-99 [facility] Comment on above: Order Comment: Speci men Type: BLOOD SPECIMENOrdering Facility: [facility] Address: [address] [place] [address] Result Comment: The [place] [employer] (ADA) provides guidance for cutoff values for fasting glucose and random glucose. The ADA defines fasting as no caloric intake for at least 8 hours. Fasting plasma glucose results between 100 to 125 mg/dL indicate increased risk for diabetes (prediabetes).Fasting plasma glucose results greater than or equal to 126 mg/dL meet the criteria for diagnosis of diabetes. In the absence of unequivocal hyperglycemia, results should be confirmed by repeat testing. In a patient with classic symptoms of hyperglycemia or hyperglycemic crisis, random plasma glucose results greater than or equal to 200 mg/dL meet the criteria for diagnosis of diabetes.Reference: Standards of Medical Care in Diabetes 2016, [place] [employer]. Diabetes Care. 2016.39(Suppl 1). Performed By: #### 3 016-3, 00747-4 ####[facility] LABCLIA [id number] [place] [address] [place] Potassium [Moles/Vol] 4.3 mmol/L Normal 3.7-5.1 [place] Comment on above: Order Comment: Laytoni men Type: BLOOD SPECIMENOrdering Facility: [facility] Address: [address] [place] [address] Performed By: #### 3 016-3, 64768-1 ####[facility] LABIA [id number] [place] [address] [place] Sodium [Moles/Vol] 137 mmol/L Normal 136-144 [facility] Comment on above: Order Comment: Speci men Type: BLOOD SPECIMENOrdering Facility: [facility] Address: [address] [place] [address] Performed By: #### 3 016-3, 04055-3 ####[facility] LABCLIA [id number] [place] [address] [place] Urea nitrogen [Mass/Vol] 12 mg/dL Normal 9-24 [facility] Comment on above: Order Comment: Speci men Type: BLOOD SPECIMENOrdering Facility: [facility] Address: [address] [place] [address] Performed By: #### 3 016-3, 40135-7 ####[facility] LABCLIA [id number] [place] [address] [place] CBC W Auto Differential pane l (Bld)on 03-06-2025 Basophils (Bld) [#/Vol] 0.06 10*3/uL Normal <0.11 [facility] Comment on above: Order Comment: Speci men Type: BLOOD SPECIMENOrdering Facility: [facility] Address: [address] [place] [address] Performed By: #### 5 7021-8 ####[facility] LABCLIA [id number] [address], [place] [address] [place] Basophils/100 WBC (Bld) 0.6 % Normal [facility] Comment on above: Order Comment: Speci men Type: BLOOD SPECIMENOrdering Facility: [facility] Address: [address] [place] [address] Performed By: #### 5 7021-8 ####[facility] LABCLIA [id number] [place] [address] [place] Differential cell count method Nom (Bld) Auto Normal [facility] Comment on above: Order Comment: Speci men Type: BLOOD SPECIMENOrdering Facility: [facility] Address: [address] [place] [address] Performed By: #### 5 7021-8 ####[facility] LABIA [id number] [place] [address] [place] Eosinophils (Bld) [#/Vol] 0.13 10*3/uL Normal <0.46 [facility] Comment on above: Order Comment: Speci men Type: BLOOD SPECIMENOrdering Facility: [facility] Address: [address] [place] [address] Performed By: #### 5 7021-8 ####[facility] LABCLIA [id number] [address] [place] [address] [place] Eosinophils/100 WBC (Bld) 1.3 % Normal [facility] Comment on above: Order Comment: Speci men Type: BLOOD SPECIMENOrdering Facility: [facility] Address: [address] [place] [address] Performed By: #### 5 7021-8 ####[facility] LABCLIA [id number] [address], [place] [address] [place] Erythrocyte distribution width (RBC) [Ratio] 13.8 % Normal 11.5-15.0 [facility] Comment on above: Order Comment: Speci men Type: BLOOD SPECIMENOrdering Facility: [facility] Address: [address] [place] [address] Performed By: #### 5 7021-8 ####[facility] LABCLIA [id number] [address], [place] [address] [place] Hematocrit (Bld) [Volume fraction] 31.6 % Low 39.0-51.0 [facility] Comment on above: Order Comment: Speci men Type: BLOOD SPECIMENOrdering Facility: [facility] Address: [address] [place] [address] Performed By: #### 5 7021-8 ####[facility] LABCLIA [id number] [address], [place] [address] [place] Hemoglobin (Bld) [Mass/Vol] 9.6 g/dL Low 13.0-17.0 [facility] Comment on above: Order Comment: Speci men Type: BLOOD SPECIMENOrdering Facility: [facility] Address: [address] [place] [address] Performed By: #### 5 7021-8 ####[facility] LABCLIA [id number] [address], [facility] [place] Immature granulocytes (Bld) [#/Vol] 0.04 10*3/uL Normal <0.10 [facility] Comment on above: Order Comment: Speci men Type: BLOOD SPECIMENOrdering Facility: [facility] Address: [address] [place] [address] Performed By: #### 5 7021-8 ####[facility] LABCLIA [id number] [place] [address] [place] Immature granulocytes/100 WBC (Bld) 0.4 % Normal [facility] Comment on above: Order Comment: Speci men Type: BLOOD SPECIMENOrdering Facility: [facility] Address: [address] [place] [address] Performed By: #### 5 7021-8 ####[facility] LABCLIA [id number] [place] [address] [place] Lymphocytes (Bld) [#/Vol] 2.51 10*3/uL Normal 1.00-4.00 [facility] Comment on above: Order Comment: Speci men Type: BLOOD SPECIMENOrdering Facility: [facility] Address: [address] [place] [address] Performed By: #### 5 7021-8 ####[facility] LABCLIA [id number] [place] [address] [place] Lymphocytes/100 WBC (Bld) 25.2 % Normal [facility] Comment on above: Order Comment: Speci men Type: BLOOD SPECIMENOrdering Facility: [facility] Address: [address] [place] [address] Performed By: #### 5 7021-8 ####[facility] LABCLIA [id number] [place] [address] [place] MCH (RBC) [Entitic mass] 23.9 pg Low 26.0-34.0 [facility] Comment on above: Order Comment: Speci men Type: BLOOD SPECIMENOrdering Facility: [facility] Address: [address] [place] [address] Performed By: #### 5 7021-8 ####[facility] LABCLIA [id number] [place] [address] [place] MCHC (RBC) [Mass/Vol] 30.4 g/dL Low 30.5-36.0 [place] Comment on above: Order Comment: Speci men Type: BLOOD SPECIMENOrdering Facility: [facility] Address: [address] [place] [address] Performed By: #### 5 7021-8 ####[facility] LABIA [id number] [place] [address] [place] MCV (RBC) [Entitic vol] 78.6 fL Low 80.0-100.0 [facility] Comment on above: Order Comment: Speci men Type: BLOOD SPECIMENOrdering Facility: [facility] Address: [address] [place] [address] Performed By: #### 5 7021-8 ####[facility] LABIA [id number] [place] [address] [place] Monocytes (Bld) [#/Vol] 0.66 10*3/uL Normal <0.87 [facility] Comment on above: Order Comment: Speci men Type: BLOOD SPECIMENOrdering Facility: [facility] Address: [address] [place] [address] Performed By: #### 5 7021-8 ####[facility] LABIA [id number] [place] [address] [place] Monocytes/100 WBC (Bld) 6.6 % Normal [facility] Comment on above: Order Comment: Speci men Type: BLOOD SPECIMENOrdering Facility: [facility] Address: [address] [place] [address] Performed By: #### 5 7021-8 ####[facility] LABIA [id number] [place] [address] [place] Neutrophils (Bld) [#/Vol] 6.57 10*3/uL Normal 1.45-7.50 [facility] Comment on above: Order Comment: Speci men Type: BLOOD SPECIMENOrdering Facility: [facility] Address: [address] [place] [address] Performed By: #### 5 7021-8 ####[facility] LABCLIA [id number] [place] [address] [place] Neutrophils/100 WBC (Bld) 65.9 % Normal [facility] Comment on above: Order Comment: Speci men Type: BLOOD SPECIMENOrdering Facility: [facility] Address: [address] [place] [address] Performed By: #### 5 7021-8 ####[facility] LABCLIA [id number] [place] [address] [place] Nucleated RBC (Bld) [#/Vol] 10*3/uL Normal <0.01 [facility] Comment on above: Order Comment: Speci men Type: BLOOD SPECIMENOrdering Facility: [facility] Address: [address] [place] [address] Performed By: #### 5 7021-8 ####[facility] LABCLIA [id number] [place] [address] [place] Nucleated RBC/100 WBC (Bld) [Ratio] 0.0 /100 WBC Normal [facility] Comment on above: Order Comment: Speci men Type: BLOOD SPECIMENOrdering Facility: [facility] Address: [address] [place] [address] Performed By: #### 5 7021-8 ####[facility] LABCLIA [id number] [place] [address] [place] Platelet mean volume (Bld) [Entitic vol] 12.7 fL Normal 9.0-12.7 [facility] Comment on above: Order Comment: Speci men Type: BLOOD SPECIMENOrdering Facility: [facility] Address: [address] [place] [address] Performed By: #### 5 7021-8 ####[facility] LABCLIA [id number] [place] [id number] [place] Platelets (Bld) [#/Vol] 427 10*3/uL High 150-400 [facility] Comment on above: Order Comment: Speci men Type: BLOOD SPECIMENOrdering Facility: [facility] Address: [address] [place] [address] Performed By: #### 5 7021-8 ####[facility] LABIA [id number] [place] [address] [place] RBC (Bld) [#/Vol] 4.02 10*6/uL Low 4.20-6.00 [facility] Comment on above: Order Comment: Speci men Type: BLOOD SPECIMENOrdering Facility: [facility] Address: [address] [place] [address] Performed By: #### 5 7021-8 ####[facility] [id number] [place] [address] [place] WBC (Bld) [#/Vol] 9.97 10*3/uL Normal 3.70-11.00 [facility] Comment on above: Order Comment: Speci men Type: BLOOD SPECIMENOrdering Facility: [facility] Address: [address] [place] [address] Performed By: #### 5 7021-8 ####[facility] LABIA [id number] [place] [id number] [place] CNOVon 03-06-2025 CNOV Normal [facility] TSH SerPl-aCncon 03-06-2025 TSH Qn 2.020 m[IU]/L Normal 0.270-4.200 [facility] Comment on above: Order Comment: Speci men Type: BLOOD SPECIMENOrdering Facility: [facility] Address: [address] [place] [address] Performed By: #### 3 016-3, 63368-5 ####[facility] LABISAIAH [id number] [address] [place] CNOVon 02-21-2025 CNOV Normal [facility] CNPNon 02-12-2025 CNPN Telephone (AGGENS4) -- BIANCA DELAROSA ([id number]) 1975 M Date Time Provider Department 02/12/25 VARSHA VAUGHN4 During your visit today, we recorded the following information about you: Judi Harvey 02/12/2025 9:55 AM Signed Insurance Verification Insurance Company: [employer] Provider Phone #: [phone] Agent: Nitesh Effective Date: 10/09/20 Call Reference #: [id number] EXCLUDED Allergies As of Date: 02/12/2025 Noted [...] mouth once daily. - Blood-Glucose Sensor (FREESTYLE DIANA 3 SENSOR) agnes USE ONE SENSOR EVERY [...] for a 90 day supply. - Insulin Carpio, Disposable, (DROPLET PEN NEEDLE) 31 gauge x [...] *09/26/2018 GERD without esophagitis [K21.9] 09/26/2018 Lump [QEX9241] 11/16/2019 ISABELLA (generalized anxiety disorder) [F41.1] 06/22/2020 [...] of foot [L84] 12/30/2024 Encounter Status:Closed by JUDI HARVEY on 02/12/25 [facility] CNOVon 02-06-2025 CNOV Office Visit (AGGENS 4) -- BIANCA DELAROSA ([id number]) 1975 M Date Time Provider Department 02/06/25 8:30 AM JENN BOWMAN4 During your visit today, we recorded [...] needed.. All benign Biopsy 03/[address] Cebul. Benign. Obesity, Class II, BMI 35-39.9 10/21/2022 Obstructive sleep apnea syndrome 01/27/2017 doesnt wear machine Other joint derangement, not elsewhere classified, lower leg 03/25/2013 Primary insomnia 07/28/2020 QT prolongation 04/20/2021 Seen [facility] 04/19/2021: [place] to be benign and related to anti-depressants. [...] Maternal Grand (more content not included)... Normal [facility] CNOVon 01-21-2025 CNOV Normal [facility] ACTH Plas-mCncon 01-11-2025 Corticotropin (P) [Mass/Vol] 35.5 pg/mL Normal 7.2-63.3 [facility] Comment on above: Order Comment: Speci men Type: BLOOD SPECIMEN Ordering Facility: [facility] Address: [address] [place] [address] Result Comment: ACTH Reference Range: 7-10 am: 7.2 - 63.3 pg/mL Performed By: #### 2 141-0 #### [facility] CLIA [id number] [address] [place] [address] [place] [address] [place] INSULIN LIK GR FAC Ion 01-11 INSULIN LIK GR FAC 1 99 ng/mL Normal 67-225 [facility] Comment on above: Order Comment: Speci men Type: BLOOD SPECIMEN Ordering Facility: [facility] Address: [address] [place] [address] Performed By: #### I LGF1 #### [facility] CLIA [id number] [address] [place] [address] Prolactin SerPl-mCncon 01-11 Prolactin [Mass/Vol] 39.1 ng/mL High 4.1-25.1 [facility] Comment on above: Order Comment: Speci men Type: BLOOD SPECIMEN Ordering Facility: [facility] Address: [address] [place] [address] Result Comment: Prol actin test is performed using the [employer] Electrochemiluminescence Immunoassay method. Results obtained with different methods or kits cannot be used interchangeably. Performed By: #### 2 842-3 #### [facility] CLIA [id number] [address] [place] [address] CNOVon 01-06-2025 CNOV Office Visit (NEAGCL M) -- WASHINGTONBIANCA ([id number]) 1975 M Date Time Provider Department 01/06/25 2:30 PM LAUREN MCKEONLM During your visit today, we recorded the following information about you: Pulse Respiration Blood pressure Weight 80/minute 16/minute 126/86 128.2 kg Height 1.88 m Lauren Mckeon MD 01/06/2025 3:08 PM Signed NEUROSURGERY CONSULT NOTE Lauren Mckeon MD [facility] Date of visit: January 06, 2025 Patient Name: Mr.David Saenz [place] Date of : 1975 Current Age: [age] year old Sex: male MRN/E# [id number] Last Office Visit: 12/24/2024 Chief Complaint: Patient [...] Primary insomnia 07/28/2020 QT prolongation 04/20/2021 Seen [facility] 04/19/2021: [place] to be benign and related to anti-depressants. [...] Kidney Dise (more content not included)... Normal [facility] MRI SHOULDER WO IVCON RTon 0 01-04-2025 MRI SHOULDER WO IVCON RT * * *Final Report* * * DATE OF EXAM: Jan 04 2025 9:08AM [facility] 0240 - MRI SHOULDER WO IVCON [...] capsulitis. Please correlate clinically Mild supraspinatus tendinosis Drill Setup Operator: GORGE Transcribe Date/Time: Jan 07 2025 1:34P Dictated by : DAT FERNANDES MD This examination was interpreted and the report reviewed and electronically signed by: DAT FERNANDES MD on Jan 07 2025 1:38PM EST [id number] Normal [facility] CNOVon 12-30-2024 CNOV Normal [facility] XR CHEST 2V FRONTAL/LATon XR CHEST 2V FRONTAL/LAT Normal [facility] XR Chest PA and Lateralon IMPRESSION: No acute radiographic abnormality. Drill Setup Operator: GORGE Transcribe Date/Time: Dec 30 2024 9:28A Dictated by : DELMI NOGUEIRA MD This examination was interpreted and the report reviewed and electronically signed by: DELMI NOGUEIRA MD on Dec 30 2024 9:29AM [facility] DIVISION OF RADIOLOGY * * [...] soft tissues: Unremarkable. DIVISION OF RADIOLOGY Provider, [facility] - 12/30/2024 * * *Final Report* * [...] Unremarkable. IMPRESSION IMPRESSION: No acute radiographic abnormality. Drill Setup Operator: GORGE Transcribe Date/Time: Dec 30 2024 9:28A Dictated by : DELMI NOGUEIRA MD This examination was interpreted and the report reviewed and electronically signed by: DELMI NOGUEIRA MD on Dec 30 2024 9:29AM EST [facility] Radiology Study observation (narrative) [facility] XR Chest PA and LateralOrder ed By: Ccf Provider on 12-30-2024 [facility] Santos 12-24-2024 CNPN Telephone (NEAGCLM) -- BIANCA DELAROSA ([id number]) 1975 M Date Time Provider Department 12/24/24 LAUREN MCKEON NEAGCLM During your visit today, we recorded the following information about you: Chago Penaloza 12/24/2024 2:02 PM Signed I spoke [...] for 30 days. - Blood-Glucose Sensor (FREESTYLE DIANA 3 SENSOR) agnes USE ONE SENSOR EVERY [...] for a 90 day supply. - Insulin Carpio, Disposable, (DROPLET PEN NEEDLE) 31 gauge x [...] *09/26/2018 GERD without esophagitis [K21.9] 09/26/2018 Lump [[id number]] 11/16/2019 ISABELLA (generalized anxiety disorder) [F41.1] 06/22/2020 [...] 12/11/2024 Gynecomastia [N62] 12/20/2024 Encounter Status:Closed by CHAGO PNEALOZA on 12/24/24 [facility] CNPN Telephone (NEAGCLM) -- BIANCA DELAROSA ([id number]) 1975 M Date Time Provider Department 12/24/24 LAUREN MCKEON NEAGCLM During your visit today, we [...] for 30 days. - Blood-Glucose Sensor (FREESTYLE DIANA 3 SENSOR) agnes USE ONE SENSOR EVERY [...] for a 90 day supply. - Insulin Carpio, Disposable, (DROPLET PEN NEEDLE) 31 gauge x [...] *09/26/2018 GERD without esophagitis [K21.9] 09/26/2018 Lump [[id number]] 11/16/2019 ISABELLA (generalized anxiety disorder) [F41.1] 06/22/2020 [...] 12/11/2024 Gynecomastia [N62] 12/20/2024 Encounter Status:Closed by CHAGO PENALOZA on 12/24/24 Normal [facility] CNPNon 12-23-2024 CNPN Normal [facility] ALKALINE PHOSPHATASE ISOENZY MES (P)on 12-20-2024 ALK PHOS BONE % 31.1 % Normal 10.7-68.3 [facility] Comment on above: Order Comment: Speci men Type: BLOOD SPECIMENOrdering Facility: [facility] Address: [address] [place] [address] Performed By: #### A LKISOP ####[facility] [id number] [place] [address] [place] ALK PHOS LIVER % 51.1 % Normal 26.0-86.2 [facility] Comment on above: Order Comment: Speci men Type: BLOOD SPECIMENOrdering Facility: [facility] Address: [address] [place] [address] Performed By: #### A LKISOP ####[facility] [id number] [place] [address] [place] BONE FRACTION 52.6 U/L Normal 12.9-52.6 [facility] Comment on above: Order Comment: Speci men Type: BLOOD SPECIMENOrdering Facility: [facility] Address: [address] [place] [address] Performed By: #### A LKISOP ####[facility] [id number] [place] [address] [place] INTESTINE FRACTION 30.1 U/L High 0.0-16.3 [facility] Comment on above: Order Comment: Speci men Type: BLOOD SPECIMENOrdering Facility: [facility] Address: [address] [place] [address] Performed By: #### A LKISOP ####[facility]IA [id number] [address] [place] LIVER FRACTION 86.4 U/L High 16.0-69.3 [facility] Comment on above: Order Comment: Speci men Type: BLOOD SPECIMENOrdering Facility: [facility] Address: [address] [place] [address] Performed By: #### A LKISOP ####[facility]IA [id number] [address] [place] Neutrophils/100 WBC (Bld) 17.8 % Normal 0.0-24.2 [facility] Comment on above: Order Comment: Speci men Type: BLOOD SPECIMENOrdering Facility: [facility] Address: [address] [place] [address] Performed By: #### A LKISOP ####[facility]IA [id number] [place] [address] [place] ALP SerPl-cCncon 12-20-2024 ALP [Catalytic activity/Vol] 169 U/L High 38-113 [facility] Comment on above: Order Comment: Speci men Type: BLOOD SPECIMENOrdering Facility: [facility] Address: [address] [place] [address] Performed By: #### 6 768-6, 2132-9, 99565-4 ####[facility]CLIA [id number] [address], [place] [address] [place] CBC W Auto Differential pane l (Bld)on 12-20-2024 Basophils (Bld) [#/Vol] 0.06 10*3/uL Normal <0.11 [facility] Comment on above: Order Comment: Speci men Type: BLOOD SPECIMENOrdering Facility: [facility] Address: [address] [place] [address] Performed By: #### 5 7021-8 ####[facility] [id number] [place] [address] [place] Basophils/100 WBC (Bld) 0.8 % Normal [facility] Comment on above: Order Comment: Speci men Type: BLOOD SPECIMENOrdering Facility: [facility] Address: [address] [place] [address] Performed By: #### 5 7021-8 ####[facility]IA [id number] [place] [address] [place] Differential cell count method Nom (Bld) Auto Normal [facility] Comment on above: Order Comment: Speci men Type: BLOOD SPECIMENOrdering Facility: [facility] Address: [address] [place] [address] Performed By: #### 5 7021-8 ####[facility] [id number] [place] [id number] [place] Eosinophils (Bld) [#/Vol] 0.20 10*3/uL Normal <0.46 [facility] Comment on above: Order Comment: Speci men Type: BLOOD SPECIMENOrdering Facility: [facility] Address: [address] [place] [address] Performed By: #### 5 7021-8 ####[facility]CLIA [id number] [place] [address] [place] Eosinophils/100 WBC (Bld) 2.5 % Normal [facility] Comment on above: Order Comment: Speci men Type: BLOOD SPECIMENOrdering Facility: [facility] Address: [address] [place] [address] Performed By: #### 5 7021-8 ####[facility]CLIA [id number] [place] [address] [place] Erythrocyte distribution width (RBC) [Ratio] 12.2 % Normal 11.5-15.0 [facility] Comment on above: Order Comment: Speci men Type: BLOOD SPECIMENOrdering Facility: [facility] Address: [address] [place] [address] Performed By: #### 5 7021-8 ####[facility]CLIA [id number] [place] [address] [place] Hematocrit (Bld) [Volume fraction] 37.3 % Low 39.0-51.0 [facility] Comment on above: Order Comment: Speci men Type: BLOOD SPECIMENOrdering Facility: [facility] Address: [address] [place] [address] Performed By: #### 5 7021-8 ####[facility]CLIA [id number] [place] [address] [place] Hemoglobin (Bld) [Mass/Vol] 12.3 g/dL Low 13.0-17.0 [facility] Comment on above: Order Comment: Speci men Type: BLOOD SPECIMENOrdering Facility: [facility] Address: [address] [place] [address] Performed By: #### 5 7021-8 ####[facility]CLIA [id number] [place] [address] [place] Immature granulocytes (Bld) [#/Vol] 0.03 10*3/uL Normal <0.10 [facility] Comment on above: Order Comment: Speci men Type: BLOOD SPECIMENOrdering Facility: [facility] Address: [address] [place] [address] Performed By: #### 5 7021-8 ####[facility]CLIA [id number] [place] [address] [place] Immature granulocytes/100 WBC (Bld) 0.4 % Normal [facility] Comment on above: Order Comment: Speci men Type: BLOOD SPECIMENOrdering Facility: [facility] Address: [address] [place] [address] Performed By: #### 5 7021-8 ####[facility]CLIA [id number] [place] [address] [place] Lymphocytes (Bld) [#/Vol] 2.65 10*3/uL Normal 1.00-4.00 [facility] Comment on above: Order Comment: Speci men Type: BLOOD SPECIMENOrdering Facility: [facility] Address: [address] [place] [address] Performed By: #### 5 7021-8 ####[facility]CLIA [id number] [place] [address] [place] Lymphocytes/100 WBC (Bld) 33.2 % Normal [facility] Comment on above: Order Comment: Speci men Type: BLOOD SPECIMENOrdering Facility: [facility] Address: [address] [place] [address] Performed By: #### 5 7021-8 ####[facility]CLIA [id number] [place] [id number] [place] MCH (RBC) [Entitic mass] 28.0 pg Normal 26.0-34.0 [facility] Comment on above: Order Comment: Speci men Type: BLOOD SPECIMENOrdering Facility: [facility] Address: [address] [place] [address] Performed By: #### 5 7021-8 ####[facility]CLIA [id number] [place] [address] [place] MCHC (RBC) [Mass/Vol] 33.0 g/dL Normal 30.5-36.0 [place] Comment on above: Order Comment: Speci men Type: BLOOD SPECIMENOrdering Facility: [facility] Address: [address] [place] [address] Performed By: #### 5 7021-8 ####[facility]CLIA [id number] [place] [address] [place] MCV (RBC) [Entitic vol] 84.8 fL Normal 80.0-100.0 [facility] Comment on above: Order Comment: Speci men Type: BLOOD SPECIMENOrdering Facility: [facility] Address: [address] [place] [address] Performed By: #### 5 7021-8 ####[facility]CLIA [id number] [place] [address] [place] Monocytes (Bld) [#/Vol] 0.48 10*3/uL Normal <0.87 [facility] Comment on above: Order Comment: Speci men Type: BLOOD SPECIMENOrdering Facility: [facility] Address: [address] [place] [address] Performed By: #### 5 7021-8 ####[facility]IA [id number] [place] [address] [place] Monocytes/100 WBC (Bld) 6.0 % Normal [facility] Comment on above: Order Comment: Speci men Type: BLOOD SPECIMENOrdering Facility: [facility] Address: [address] [place] [address] Performed By: #### 5 7021-8 ####[facility]CLIA [id number] [place] [id number] [place] Neutrophils (Bld) [#/Vol] 4.55 10*3/uL Normal 1.45-7.50 [facility] Comment on above: Order Comment: Speci men Type: BLOOD SPECIMENOrdering Facility: [facility] Address: [address] [place] [address] Performed By: #### 5 7021-8 ####[facility]CLIA [id number] [place] [address] [place] Neutrophils/100 WBC (Bld) 57.1 % Normal [facility] Comment on above: Order Comment: Speci men Type: BLOOD SPECIMENOrdering Facility: [facility] Address: [address] [place] [address] Performed By: #### 5 7021-8 ####[facility]CLIA [id number] [place] [address] [place] Nucleated RBC (Bld) [#/Vol] 10*3/uL Normal <0.01 [facility] Comment on above: Order Comment: Speci men Type: BLOOD SPECIMENOrdering Facility: [facility] Address: [address] [place] [address] Performed By: #### 5 7021-8 ####[facility]CLIA [id number] [place] [address] [place] Nucleated RBC/100 WBC (Bld) [Ratio] 0.0 /100 WBC Normal [facility] Comment on above: Order Comment: Speci men Type: BLOOD SPECIMENOrdering Facility: [facility] Address: [address] [place] [address] Performed By: #### 5 7021-8 ####[facility] LABCLIA [id number] [place] [id number] [place] Platelet mean volume (Bld) [Entitic vol] 12.5 fL Normal 9.0-12.7 [facility] Comment on above: Order Comment: Speci men Type: BLOOD SPECIMENOrdering Facility: [facility] Address: [address] [place] [address] Performed By: #### 5 7021-8 ####[facility]CLIA [id number] [place] [address] [place] Platelets (Bld) [#/Vol] 352 10*3/uL Normal 150-400 [facility] Comment on above: Order Comment: Speci men Type: BLOOD SPECIMENOrdering Facility: [facility] Address: [address] [place] [address] Performed By: #### 5 7021-8 ####[facility] [id number] [place] [address] [place] RBC (Bld) [#/Vol] 4.40 10*6/uL Normal 4.20-6.00 [facility] Comment on above: Order Comment: Speci men Type: BLOOD SPECIMENOrdering Facility: [facility] Address: [address] [place] [address] Performed By: #### 5 7021-8 ####[facility] [id number] [place] [address] [place] WBC (Bld) [#/Vol] 7.97 10*3/uL Normal 3.70-11.00 [facility] Comment on above: Order Comment: Speci men Type: BLOOD SPECIMENOrdering Facility: [facility] Address: [address] [place] [address] Performed By: #### 5 7021-8 ####[facility] [id number] [place] [address] [place] CNOVon 12-20-2024 CNOV Normal [facility] CNPNon 12-20-2024 CNPN Telephone (NEAGCLM) -- BIANCA DELAROSA ([id number]) 1975 M Date Time Provider Department 12/20/24 LAUREN MCKEON NEAGCLM During your visit today, we recorded the following information about you: Chago Pnealoza 12/20/2024 4:05 PM Signed I spoke to [...] for 30 days. - Blood-Glucose Sensor (FREESTYLE DIANA 3 SENSOR) agnes USE ONE SENSOR EVERY [...] for a 90 day supply. - Insulin Carpio, Disposable, (DROPLET PEN NEEDLE) 31 gauge x [...] *09/26/2018 GERD without esophagitis [K21.9] 09/26/2018 Lump [[id number]] 11/16/2019 ISABELLA (generalized anxiety disorder) [F41.1] 06/22/2020 [...] 12/11/2024 Gynecomastia [N62] 12/20/2024 Encounter Status:Closed by CHAGO PENALOZA on 12/20/24 Normal [facility] Comprehensive metabolic 2000 panelon 12-20-2024 Albumin [Mass/Vol] 4.5 g/dL Normal 3.9-4.9 [facility] Comment on above: Order Comment: Speci men Type: BLOOD SPECIMENOrdering Facility: [facility] Address: [address] [place] [address] Performed By: #### 6 768-6, 2132-9, 91866-3 ####[facility] LABCLIA [id number] [place] [id number] [place] ALT [Catalytic activity/Vol] 12 U/L Normal 10-54 [facility] Comment on above: Order Comment: Speci men Type: BLOOD SPECIMENOrdering Facility: [facility] Address: [address] [place] [address] Performed By: #### 6 768-6, 2132-06, ####[facility] LABCLIA [id number] [address] [address] [place] Anion gap [Moles/Vol] 12 mmol/L Normal 8-15 [place] Comment on above: Order Comment: Speci men Type: BLOOD SPECIMENOrdering Facility: [facility] Address: [address] [place] [address] Performed By: #### 6 768-6, 2132-06, ####[facility] LABCLIA [id number] [address] [address] [place] AST [Catalytic activity/Vol] 18 U/L Normal 14-40 [facility] Comment on above: Order Comment: Speci men Type: BLOOD SPECIMENOrdering Facility: [facility] Address: [address] [place] [address] Performed By: #### 6 768-6, 2132-06, ####[facility] LABCLIA [id number] [address] [address] [place] Bilirubin [Mass/Vol] 0.2 mg/dL Normal 0.2-1.3 [facility] Comment on above: Order Comment: Speci men Type: BLOOD SPECIMENOrdering Facility: [facility] Address: [address] [place] [address] Performed By: #### 6 768-6, 2132-06, ####[facility] LABCLIA [id number] [address] [address] [place] Calcium [Mass/Vol] 9.4 mg/dL Normal 8.5-10.2 [facility] Comment on above: Order Comment: Speci men Type: BLOOD SPECIMENOrdering Facility: [facility] Address: [address] [place], [place] [address] Performed By: #### 6 768-6, 2132-06, ####[facility] LABCLIA [id number] [address] [address] [place] Chloride [Moles/Vol] 103 mmol/L Normal 98-107 [facility] Comment on above: Order Comment: Speci men Type: BLOOD SPECIMENOrdering Facility: [facility] Address: [address] [place] [address] Performed By: #### 6 768-6, 2132-06, 42218-9 ####[facility] LABIA [id number] [address] [address] [place] CO2 [Moles/Vol] 23 mmol/L Normal 22-30 [facility] Comment on above: Order Comment: Speci men Type: BLOOD SPECIMENOrdering Facility: [facility] Address: [address] [place] [address] Performed By: #### 6 768-6, 2132-06, 33881-9 ####[facility] [id number] [place] [address] [place] Creatinine [Mass/Vol] 0.68 mg/dL Low 0.73-1.22 [place] Comment on above: Order Comment: Speci men Type: BLOOD SPECIMENOrdering Facility: [facility] Address: [address] [place] [address] Performed By: #### 6 768-6, 2132-06, ####[facility] [id number] [place] [id number] [place] Creatinine and Glomerular filtration rate.predicted panel (S/P/Bld) 113 mL/min/1.73m??? Normal >=60 [facility] Comment on above: Order Comment: Speci men Type: BLOOD SPECIMENOrdering Facility: [facility] Address: [address] [place] [address] Result Comment: Tia mated Glomerular Filtration Rate [...] GFR. Performed By: #### 6 768-6, 2132-06, ####[facility] LABCLIA [id number] [facility] [address] [address] [place] Glucose [Mass/Vol] 322 mg/dL High 74-99 [facility] Comment on above: Order Comment: Catherine hendrix Type: BLOOD SPECIMENOrdering Facility: [facility] Address: [address] [place] [address] Result Comment: The [place] [employer] (ADA) provides guidance for cutoff values for fasting glucose and random glucose. The ADA defines fasting as no caloric intake for at least 8 hours. Fasting plasma glucose results between 100 to 125 mg/dL indicate increased risk for diabetes (prediabetes).Fasting plasma glucose results greater than or equal to 126 mg/dL meet the criteria for diagnosis of diabetes. In the absence of unequivocal hyperglycemia, results should be confirmed by repeat testing. In a patient with classic symptoms of hyperglycemia or hyperglycemic crisis, random plasma glucose results greater than or equal to 200 mg/dL meet the criteria for diagnosis of diabetes.Reference: Standards of Medical Care in Diabetes 2016, [place] Diabetes Association. Diabetes Care. 2016.39(Suppl 1). Performed By: #### 6 768-6, 2132-06, ####[facility] LABCLIA [id number] [address] [address] [place] Potassium [Moles/Vol] 4.5 mmol/L Normal 3.7-5.1 [place] Comment on above: Order Comment: Catherine hendrix Type: BLOOD SPECIMENOrdering Facility: [facility] Address: [address] [place] [address] Performed By: #### 6 768-6, 2132-06, ####[facility] LABCLIA [id number] [facility] EMERALD COASTK [address] [address] [place] Protein [Mass/Vol] 6.5 g/dL Normal 6.3-8.0 [facility] Comment on above: Order Comment: Speci men Type: BLOOD SPECIMENOrdering Facility: [facility] Address: [address] [place] [address] Performed By: #### 6 768-6, 9, 97513-8 ####[facility] LABCLIA [id number] [place] [id number] [place] Sodium [Moles/Vol] 138 mmol/L Normal 136-144 [facility] Comment on above: Order Comment: Speci men Type: BLOOD SPECIMENOrdering Facility: [facility] Address: [address] [place] [address] Performed By: #### 6 768-6, 2132-06, 69980-1 ####[facility] LABCLIA [id number] [place] [id number] [place] Urea nitrogen [Mass/Vol] 12 mg/dL Normal 9-24 [facility] Comment on above: Order Comment: Speci men Type: BLOOD SPECIMENOrdering Facility: [facility] Address: [address] [place] [address] Performed By: #### 6 768-6, 2132-06, 27303-9 ####[facility] LABIA [id number] [place] [address] [place] GGT SerPl-cCncon 12-20-2024 Gamma glutamyl transferase [Catalytic activity/Vol] 36 U/L Normal 10-70 [facility] Comment on above: Order Comment: Speci men Type: BLOOD SPECIMENOrdering Facility: [facility] Address: [address] [place] [address] Performed By: #### 1 9123-9, LIPNF, 3016-3, 2324-2 ####[facility] LABCLIA [id number] [place] [address] [place] HbA1c (Bld)on 12-20-2024 Average glucose Estimated from glycated hemoglobin (Bld) [Mass/Vol] 255 mg/dL Normal [facility] Comment on above: Order Comment: Catherine hendrix Type: BLOOD SPECIMENOrdering Facility: [facility] Address: [address] [place] [address] Result Comment: eAG: (Estimated average glucose) is a calculated value from HgbA1c and is sales service representative of the average blood glucose level in the last 2-3 month period. Performed By: #### 5 5454-3 ####[facility] LABCLIA [id number] [place] [address] [place] HbA1c (Bld) [Mass fraction] 10.5 % High 4.3-5.6 [facility] Comment on above: Order Comment: Catherine hendrix Type: BLOOD SPECIMENOrdering Facility: [facility] Address: [address] [place] [address] Result Comment: [place] Diabetes Association guidelines indicate that patients with HgbA1c in the range 5.7-6.4% are at increased risk for development of diabetes, and intervention by lifestyle modification may be beneficial. HgbA1c greater or equal to 6.5% is considered diagnostic of diabetes. Performed By: #### 5 5454-3 ####[facility] LABCLIA [id number] [place] [address] [place] LIPID PANEL, NONFASTINGon Cholesterol [Mass/Vol] 147 mg/dL Normal <200 [facility] Comment on above: Order Comment: Catherine hendrix Type: BLOOD SPECIMENOrdering Facility: [facility] Address: [address] [place] [address] Result Comment: <200 mg/dL, Desirable 200-239 mg/dL, Borderline high>239 mg/dL, High Performed By: #### 1 9123-9, LIPNF, 3016-3, 2324-2 ####[facility] LABCLIA [id number] [place] [address] [place] HDL CHOLESTEROL, NF 25 mg/dL Low >39 [facility] Comment on above: Order Comment: Speci men Type: BLOOD SPECIMENOrdering Facility: [facility] Address: [address] [place] [address] Result Comment: 40-5 9 mg/dL, Acceptable>59 mg/dL, High: Negative risk factor for coronary heart disease<40 mg/dL, Low: Positive risk factor for coronary heart disease Performed By: #### 1 9123-9, LIPNF, 3015-3, 2323-2 ####[facility] LABCLIA [id number] [address] LDL CHOLESTEROL, NF 54 mg/dL Normal <100 [facility] Comment on above: Order Comment: Speci simeon Type: BLOOD SPECIMENOrdering Facility: [facility] Address: [address] [place] [address] Result Comment: <100 mg/dL, Optimal 100-129 mg/dL, Near optimal/above optimal 130-159 mg/dL, Borderline high 160-189 mg/dL, High>189 mg/dL, Very highSecondary prevention optimal LDL Cholesterol levels are recommended to be < 70 mg/dL Performed By: #### 1 9123-9, LIPNF, 3015-3, 2323-2 ####[facility] LABCLIA [id number] [address] [facility] LDL/HDL RATIO, NF 2.16 mg/dL Normal <2.54 [facility] Comment on above: Order Comment: Speci men Type: BLOOD SPECIMENOrdering Facility: [facility] Address: [address] [place] [address] Result Comment: Refe rence:1. National Cholesterol Education Program ATP III Guideline At-A-Glance Quick Desk Reference: National Heart, Lung, and Blood [place]. National Institutes of Health. 2001: NIH Publication No. 01-3305.2. An International Atherosclerosis Society position paper: global recommendations for the management of dyslipidemia: executive summary, Atherosclerosis. 2014: 232(2):410-413. Performed By: #### 1 9123-9, LIPNF, 3015-12, 2323-11 ####[facility] LABCLIA [id number] [facility] EM[place] CO[place]K [address] [address] [place] NON HDL CHOL, NF 122 mg/dL Normal <130 [facility] Comment on above: Order Comment: Speci men Type: BLOOD SPECIMENOrdering Facility: [facility] Address: [address] [place] [address] Result Comment: <130 mg/dL, Optimal 130-159 mg/dL, Near optimal/above optimal 160-189 mg/dL, Borderline high 190-219 mg/dL, High>219 mg/dL, Very highSecondary prevention optimal non HDL Cholesterol levels are recommended to be <100 mg/dL Performed By: #### 1 9123-9, LIPNF, 3015-12, 2323-11 ####[facility] LABCLIA [id number] [place] [id number] [place] T CHOL/HDL RATIO NF 5.88 mg/dL High <5.10 [facility] Comment on above: Order Comment: Speci men Type: BLOOD SPECIMENOrdering Facility: [facility] Address: [address] [place] [address] Performed By: #### 1 9123-9, LIPNF, 3015-12, 2323-11 ####[facility] LABCLIA [id number] [place] [id number] [place] TRIGLYCERIDES, NF 338 mg/dL High <150 [facility] Comment on above: Order Comment: Speci men Type: BLOOD SPECIMENOrdering Facility: [facility] Address: [facility] [place] [address] Result Comment: <150 mg/dL, Normal 150-199 mg/dL, Borderline high 200-499 mg/dL, High>499 mg/dL, Very high Performed By: #### 1 9123-9, LIPNF, 3015-12, 2323-11 ####[facility] LABCLIA [id number] [facility] [place] [id number] [place] VLDL CHOLESTEROL, NF 68 mg/dL High <30 [facility] Comment on above: Order Comment: Speci men Type: BLOOD SPECIMENOrdering Facility: [facility] Address: [address] [place] [address] Performed By: #### 1 9123-9, LIPNF, 3016-3, 2324-2 ####[facility] LABCLIA [id number] [place] [address] [place] Magnesium SerPl-mCncon 12-20 Magnesium [Mass/Vol] 2.1 mg/dL Normal 1.7-2.3 [facility] Comment on above: Order Comment: Speci men Type: BLOOD SPECIMENOrdering Facility: [facility] Address: [address] [place] [address] Performed By: #### 1 9123-9, LIPNF, 3016-3, 2324-2 ####[facility] LABCLIA [id number] [place] [address] [place] Mitochondria Ab IF Ql (S)on 12-20-2024 Mitochondria M2 Ab IA Qn (S) 2.7 Units Normal <=20.0 [facility] Comment on above: Order Comment: Speci men Type: BLOOD SPECIMENOrdering Facility: [facility] Address: [address] [place] [address] Performed By: #### 1 7284-1 ####[facility] LABCLIA [id number] [place] [address] [place] Mitochondria M2 Ab Ql (S) Negative Normal Negative [facility] Comment on above: Order Comment: Speci men Type: BLOOD SPECIMENOrdering Facility: [facility] Address: [address] [place] [address] Result Comment: Anti -mitochondrial antibody test is used as an aid in diagnosis of primary biliary cholangitis. Clinical correlation is required. Performed By: #### 1 7284-1 ####[facility] LABCLIA [id number] [place] [address] [place] TSH SerPl-aCncon 12-20-2024 TSH Qn 1.230 m[IU]/L Normal 0.270-4.200 [facility] Comment on above: Order Comment: Speci men Type: BLOOD SPECIMENOrdering Facility: [facility] Address: [address] [place] [address] Performed By: #### 1 9123-9, LIPNF, 3016-3, 2324-2 ####[facility] LABCLIA [id number] [place] [address] [place] Urinalysis complete panel (U )on 12-20-2024 Bacteria LM.HPF (Urine sed) [#/Area] Negative Normal Negative [facility] Comment on above: Order Comment: Speci men Type: URINE SPECIMENOrdering Facility: [facility] Address: [address] [place] [address] Performed By: #### 2 4356-8 ####[facility] LABCLIA [id number] [place] [address] [place] Bilirubin Ql (U) Negative Normal Negative [facility] Comment on above: Order Comment: Speci men Type: URINE SPECIMENOrdering Facility: [facility] Address: [address] [place] [address] Performed By: #### 2 4356-8 ####[facility] LABCLIA [id number] [place] [address] [place] Clarity (Unsp spec) Clear Normal Clear [facility] Comment on above: Order Comment: Speci men Type: URINE SPECIMENOrdering Facility: [facility] Address: [address] [place] [address] Performed By: #### 2 4356-8 ####[facility] LABCLIA [id number] [place] [address] [place] Color (U) Yellow Normal Yellow [facility] Comment on above: Order Comment: Speci men Type: URINE SPECIMENOrdering Facility: [facility] Address: [address] [place] [address] Performed By: #### 2 4356-8 ####[facility] LABCLIA [id number] [address] STATES [facility] Epithelial cells LM.HPF (Urine sed) [#/Area] None Seen Normal [facility] Comment on above: Order Comment: Speci men Type: URINE SPECIMENOrdering Facility: [facility] Address: [address] [place] [address] Performed By: #### 2 4356-8 ####[facility] LABCLIA [id number] [address] Glucose Test strip (U) [Mass/Vol] 3+ Abnormal Negative [facility] Comment on above: Order Comment: Speci men Type: URINE SPECIMENOrdering Facility: [facility] Address: [address] [place] [address] Performed By: #### 2 4356-8 ####[facility] LABCLIA [id number] [address] [place] Hemoglobin Ql (U) Negative Normal Negative [facility] Comment on above: Order Comment: Speci men Type: URINE SPECIMENOrdering Facility: [facility] Address: [address] [place] [address] Performed By: #### 2 4356-8 ####[facility] LABCLIA [id number] [address], [facility] [place] Hyaline casts (Urine sed) [#/Area] 0 /[LPF] Normal 0 /LPF [facility] Comment on above: Order Comment: Speci men Type: URINE SPECIMENOrdering Facility: [facility] Address: [address] [place] [address] Performed By: #### 2 4356-8 ####[facility] LABCLIA [id number] [place] [id number] [place] Ketones Ql (U) Trace Abnormal Negative [facility] Comment on above: Order Comment: Speci men Type: URINE SPECIMENOrdering Facility: [facility] Address: [address] [place] [address] Performed By: #### 2 4356-8 ####[facility] LABCLIA [id number] [place] [address] [place] Leukocyte esterase Test strip Ql (U) Negative Normal Negative [facility] Comment on above: Order Comment: Speci men Type: URINE SPECIMENOrdering Facility: [facility] Address: [address] [place] [address] Performed By: #### 2 4356-8 ####[facility] LABCLIA [id number] [place] [address] [place] Nitrite Ql (U) Negative Normal Negative [facility] Comment on above: Order Comment: Speci men Type: URINE SPECIMENOrdering Facility: [facility] Address: [address] [place] [address] Performed By: #### 2 4356-8 ####[facility] LABCLIA [id number] [place] [address] [place] pH (U) 7.0 [pH] Normal <8.5 [facility] Comment on above: Order Comment: Speci men Type: URINE SPECIMENOrdering Facility: [facility] Address: [address] [place] [address] Performed By: #### 2 4356-8 ####[facility] LABCLIA [id number] [place] [address] [place] Protein (U) [Mass/Vol] Trace Abnormal Negative Cl [facility] Comment on above: Order Comment: Speci men Type: URINE SPECIMENOrdering Facility: [facility] Address: [address] [place] [address] Performed By: #### 2 4356-8 ####[facility] LABCLIA [id number] [place] [address] [place] RBC LM.HPF (Urine sed) [#/Area] 0-2 /HPF Normal 0-2 /HPF [facility] Comment on above: Order Comment: Speci men Type: URINE SPECIMENOrdering Facility: [facility] Address: [address] [place] [address] Performed By: #### 2 4356-8 ####[facility] [id number] [place] [address] [place] Specific gravity (U) [Rel density] >1.045 High 1.005-1.030 [facility] Comment on above: Order Comment: Speci men Type: URINE SPECIMENOrdering Facility: [facility] Address: [address] [place] [address] Performed By: #### 2 4356-8 ####[facility] [id number] [address] [place] Urobilinogen Ql (U) 0.2 EU/dL Normal 0.2-1.0 EU/dL [facility] Comment on above: Order Comment: Speci men Type: URINE SPECIMENOrdering Facility: [facility] Address: [address] [place] [address] Performed By: #### 2 4356-8 ####[facility] [id number] [place] [address] [place] WBC LM.HPF (Urine sed) [#/Area] 0-5 /HPF Normal 0-5 /HPF [facility] Comment on above: Order Comment: Speci men Type: URINE SPECIMENOrdering Facility: [facility] Address: [address] [place] [address] Performed By: #### 2 4356-8 ####[facility] [id number] [place] [address] [place] Vit B12 [facility]2 025 Cobalamin (Vitamin B12) [Mass/Vol] 438 pg/mL Normal 232-1245 [facility] Comment on above: Order Comment: Speci men Type: BLOOD SPECIMENOrdering Facility: [facility] Address: [address] [place] [address] [place] [address] Performed By: #### 6 768-6, 2132-9, 35993-5 ####[facility] LABCLIA [id number] [place] [address] [place] CNPNon 2024 CNPN Normal [facility] CNPNon 12-12-2024 CNPN Normal [facility] MR Brain WO and W contrast I Von 12-11-2024 * * *Final Report* * * DATE OF EXAM: Dec 11 2024 10:59AM [facility] 0295 - MRI BRAIN WO/W [...] reflect an underlying lesion/adenoma or pituitary hyperplasia. Drill Setup Operator: [facility] Transcribe Date/Time: Dec 11 2024 11:13A Dictated by : DAVID FAY MD This examination was interpreted and the report reviewed and electronically signed by: DAVID FAY MD on Dec 11 2024 11:19AM [facility] DIVISION OF RADIOLOGY Provider, [facility] - 12/11/2024 * * *Final Report* * * DATE OF EXAM: Dec 11 2024 10:59AM [facility] 0295 - MRI BRAIN WO/W [...] reflect an underlying lesion/adenoma or pituitary hyperplasia. Drill Setup Operator: [facility] Transcribe Date/Time: Dec 11 2024 11:13A Dictated by : DAVID FAY MD This examination was interpreted and the report reviewed and electronically signed by: DAVID FAY MD on Dec 11 2024 11:19AM EST [facility] Radiology Study observation (narrative) [facility] MR Brain WO and W contrast I VOrdered By: Cc Provider on 12-11-2024 [facility] MRI BRAIN WO/W IVCONon 12-11 MRI BRAIN WO/W IVCON Normal [facility] DBT Breast - bilateral diagn ostic for implanton 12-03-2024 Addendum by Provider , [facility] [place] on 12/03/2024 9:46 AM EST * * *Final Report* * * * * * SEE BOTTOM OF REPORT FOR ADDENDED TEXT * * * DATE OF EXAM: Dec 03 2024 8:41AM [facility] 0627 - FIGUEROA LESLY W GEOVANNI DYLON / PROCEDURE REASON: Subareolar mass of right breast * * * * Physician Interpretation * * * * RESULT: [facility] [address] [place] [id number] #[id number] - [facility] LESLY W GEOVANNI DYLON #[id number] - [facility] BREAST LTD RT HISTORY: 48 year-old [...] malignancy. BI-RADS Category 2: Benign Interpreting Radiologist: Stu Alcocer M.D. Electronically signed on: 12/03/2024 Drill Setup Operator: SAM [employer]criangie Date/Time: Dec 03 2024 8:13A Dictated by: STU ALCOCER MD This examination was interpreted and the report reviewed and electronically signed by: STU ALCOCER MD on Dec 03 2024 9:37AM EST This document has been addended by: STU ALCOCER MD on Dec 03 2024 9:37AM EST [facility] Radiology Study observation (narrative) [facility] DBT Breast - bilateral diagn ostic for implantOrdered By: Ccf Provider on 12-03-2024 [facility] FIGUEROA DIAG W GEOVANNI BILon 2024 FIGUER[place] DIAG W GEOVANNI DYLON Normal [facility] US BREAST LTD RTon 12-03 [facility] US BREAST LTD RT Normal [facility] US Breast - right limitedon 12-03-2024 IMPRESSION: There is no mammographic or sonographic evidence of malignancy. BI-RADS Category 2: Benign Interpreting Radiologist: Stu Alcocer M.D. Electronically signed on: 12/03/2024 Drill Setup Operator: SAM Transcriangie Date/Time: Dec 03 2024 9:03A Dictated by : STU ALCOCER MD This examination was interpreted and the report reviewed and electronically signed by: STU ALCOCER MD on Dec 03 2024 9:37AM EST DIVISION OF RADIOLOGY * * *Final Report* * * DATE OF EXAM: Dec 03 2024 9:11AM [facility] 0594 - FIGUEROA [employer] BREAST Syncano RT / PROCEDURE REASON: Subareolar mass of right breast * * * * Physician Interpretation * * * * [place] [address] #[id number] - FIGUEROA DIAG W GEOVANNI DYLON #[id number] - [facility] [employer] BREAST LTD RT HISTORY: 48 year-old patient [...] the imaged area. DIVISION OF RADIOLOGY Provider, [facility] - 12/03/2024 * * *Final Report* * * DATE OF EXAM: Dec 03 2024 9:11AM U 0594 - [employer] BREAST Sync[employer] RT / PROCEDURE REASON: Subareolar mass of right breast * * * * Physician Interpretation * * * * [place] [address] #[id number] - FIGUEROA DIAG W GEOVANNI YDLON #[id number] - [facility] [employer] BREAST LTD RT HISTORY: 48 year-old patient [...] malignancy. BI-RADS Category 2: Benign Interpreting Radiologist: Stu Alcocer M.D. Electronically signed on: 12/03/2024 Drill Setup Operator: SAM Transcribe Date/Time: Dec 03 2024 9:03A Dictated by : STU ALCOCER MD This examination was interpreted and the report reviewed and electronically signed by: STU ALCOCER MD on Dec 03 2024 9:37AM EST [facility] Radiology Study observation (narrative) [facility] US Breast - right limitedOrd ered By: Ccf Provider on 12-03-2024 [facility] B-HCG SerPl-aCncon 5 HCG.beta subunit Qn m[IU]/mL Normal <5.0 [facility] Comment on above: Order Comment: Speci men Type: BLOOD SPECIMENOrdering Facility: [facility] Address: [address] [place] [address] Performed By: #### 2 1198-7 ####[facility] LABORATORYCLIA [id number] [place] [address] [place] CNOVon 11-22-2024 CNOV Normal [facility] Estradiol SerPl-mCncon 11-22 E2 [Mass/Vol] pg/mL Normal <43 [facility] Comment on above: Order Comment: Speci men Type: BLOOD SPECIMENOrdering Facility: [facility] Address: [address] [place] [address] Performed By: #### 1 5067-2, 38766-7, 2243-4 ####[facility] LABORATORYCLIA [id number] [place] [address] [place]#### 2842-3 ####[facility] LABCLIA [id number] [place] [address] [place] FSH SerPl-aCncon 11-22-2024 Follitropin Qn 7.2 m[IU]/mL Normal 1.5-12.4 [facility] Comment on above: Order Comment: Speci men Type: BLOOD SPECIMENOrdering Facility: [facility] Address: [address] [place] [address] Performed By: #### 1 5067-2, 57054-9, 2242-4 ####[facility] LABORATORYCLIA [id number] [place] [address] [place]#### 2842-3 ####[facility] LABCLIA [id number] [place] [address] [place] LH SerPl-aCncon 11-22-2024 Lutropin Qn 3.7 m[IU]/mL Normal 1.7-8.6 [facility] Comment on above: Order Comment: Speci men Type: BLOOD SPECIMENOrdering Facility: [facility] Address: [address] [place] [address] Performed By: #### 1 5067-2, 25598-9, 2243-01 ####[facility] LABORATORYCLIA [id number] [place] [address] [place]#### 2842-3 ####[facility] LABCLIA [id number] [place] [address] [place] Prolactin SerPl-mCncon 11-22 Prolactin [Mass/Vol] 41.2 ng/mL High 4.1-25.1 [facility] Comment on above: Order Comment: Speci men Type: BLOOD SPECIMENOrdering Facility: [facility] Address: [address] [place] [address] Result Comment: Prol actin test is performed using the [employer] Electrochemiluminescence Immunoassay method. Results obtained with different methods or kits cannot be used interchangeably. Performed By: #### 1 5067-2, 61351-3, 2243-4 ####[facility] LABORATORYCLIA [id number] [place] [address] [place]#### 2842-3 ####[facility] LABCLIA [id number] [place] [id number] [place] T4 Free SerPl-mCncon 025 Free T4 [Mass/Vol] 1.1 ng/dL Normal 0.9-1.7 [facility] Comment on above: Order Comment: Speci men Type: BLOOD SPECIMENOrdering Facility: [facility] Address: [address] [place] [address] Performed By: #### 3 024-7, 3016-3, 2988 ####[facility] LABIA [id number] [place] [address] [place] TSH SerPl-aCncon 11-22-2024 TSH Qn 1.190 m[IU]/L Normal 0.270-4.200 [facility] Comment on above: Order Comment: Speci men Type: BLOOD SPECIMENOrdering Facility: [facility] Address: [address] [place] [address] Performed By: #### 3 024-7, 3016-3, 2988 ####[facility] [id number] [place] [address] [place] Testost SerPl-mCncon 025 Testosterone [Mass/Vol] 166 ng/dL Low 193-824 [facility] Comment on above: Order Comment: Speci men Type: BLOOD SPECIMENOrdering Facility: [facility] Address: [address] [place] [address] Result Comment: A te stosterone level in the 193-320 ng/dL range with associated clinical symptoms is considered low and may indicate hypogonadism (from [facility] 2010 363:123-135). Results >320 ng/dL are considered normal. Performed By: #### 3 024-7, 3016-3, 298-8 ####[facility] LABCLIA [id number] [place] [address] [place] US Abdomen RUQon 10-27-2024 IMPRESSION: Limited exam. Hepatic steatosis. Drill Setup Operator: GORGE Transcribe Date/Time: Oct 26 2024 11:48P Dictated by : LOUISE BOURGEOIS DO This examination was interpreted and the report reviewed and electronically signed by: LOUISE BOURGEOIS DO on Oct 27 2024 12:05AM [facility] DIVISION OF RADIOLOGY * * [...] hydronephrosis. Ascites: None. DIVISION OF RADIOLOGY Provider, [facility] - 10/27/2024 * * *Final Report* * [...] None. IMPRESSION IMPRESSION: Limited exam. Hepatic steatosis. Drill Setup Operator: GORGE Transcribe Date/Time: Oct 26 2024 11:48P Dictated by : LOUISE BOURGEOIS DO This examination was interpreted and the report reviewed and electronically signed by: LOUISE BOURGEOIS DO on Oct 27 2024 12:05AM EST [facility] US Abdomen RUQOrdered By: Leti vila Provider on 10-27-2024 [facility] US ABD RIGHT UPPER QUADRANTo n 10-25-2024 US ABD RIGHT UPPER QUADRANT Normal [facility] US Abdomen RUQon 10-25-2024 Radiology Study observation (narrative) [facility] CNPNon 10-16-2024 CNPN Normal [facility] Amylase SerPl-cCncon 025 Amylase [Catalytic activity/Vol] 18 U/L Low 30-104 [facility] Comment on above: Order Comment: Speci men Type: BLOOD SPECIMENOrdering Facility: [facility] Address: [address] [place] [address] Performed By: #### 1 798-8, 20279-2, 3040-3, LIPNF ####[facility] LABCLIA [id number] [facility] [id number] [address] [place] CNOVon 10-14-2024 CNOV Normal [facility] H. pylori IgG IA Qlon 2024 H. PYLORI IGG, QUAL Negative Normal Negative [facility] Comment on above: Order Comment: Catherine hendrix Type: BLOOD SPECIMENOrdering Facility: [facility] Address: [address] [place] [address] Result Comment: Megha ot exclude H. pylori infection if the specimen collected 3-4 weeks after onset of symptoms. Performed By: #### 1 7859-0 ####[facility] LABCLIA [id number] [place] HbA1c (Bld)on 10-14-2024 Average glucose Estimated from glycated hemoglobin (Bld) [Mass/Vol] 289 mg/dL Normal [facility] Comment on above: Order Comment: Speci men Type: BLOOD SPECIMENOrdering Facility: [facility] Address: [address] [place] [address] Result Comment: eAG: (Estimated average glucose) is a calculated value from HgbA1c and is sales service representative of the average blood glucose level in the last 2-3 month period. Performed By: #### 5 5454-3 ####[facility] LABCLIA [id number] [address] [place] HbA1c (Bld) [Mass fraction] 11.7 % High 4.3-5.6 [facility] Comment on above: Order Comment: Catherine hendrix Type: BLOOD SPECIMENOrdering Facility: [facility] Address: [address] [place] [address] Result Comment: Amer ican Diabetes Association guidelines indicate that patients with HgbA1c in the range 5.7-6.4% are at increased risk for development of diabetes, and intervention by lifestyle modification may be beneficial. HgbA1c greater or equal to 6.5% is considered diagnostic of diabetes. Performed By: #### 5 5454-3 ####[facility] LABCLIA [id number] [address] [place] Hepatic function 2000 panelo n 10-14-2024 Albumin [Mass/Vol] 4.3 g/dL Normal 3.9-4.9 [facility] Comment on above: Order Comment: Catherine men Type: BLOOD SPECIMENOrdering Facility: [facility] Address: [address] [place] [address] Performed By: #### 1 798-8, 27977-5, 3040-3, LIPNF ####[facility] LABCLIA [id number] [place] [address] [place] ALP [Catalytic activity/Vol] 182 U/L High 38-113 [facility] Comment on above: Order Comment: Speci men Type: BLOOD SPECIMENOrdering Facility: [facility] Address: [address] [place] [address] Performed By: #### 1 798-8, 13537-3, 3040-3, LIPNF ####[facility] LABIA [id number] [place] [address] [place] ALT [Catalytic activity/Vol] 17 U/L Normal 10-54 [facility] Comment on above: Order Comment: Speci men Type: BLOOD SPECIMENOrdering Facility: [facility] Address: [address] [place] [address] Performed By: #### 1 798-8, 24678-5, 3040-3, LIPNF ####[facility] [id number] [place] [address] [place] AST [Catalytic activity/Vol] 22 U/L Normal 14-40 [facility] Comment on above: Order Comment: Speci men Type: BLOOD SPECIMENOrdering Facility: [facility] Address: [address] [place] [address] Performed By: #### 1 798-8, 45023-4, 3040-3, LIPNF ####[facility] LABIA [id number] [place] [id number] [place] Bilirubin [Mass/Vol] 0.2 mg/dL Normal 0.2-1.3 [facility] Comment on above: Order Comment: Speci men Type: BLOOD SPECIMENOrdering Facility: [facility] Address: [address] [place] [address] Performed By: #### 1 798-8, 81164-1, 3040-3, LIPNF ####[facility] LABIA [id number] [place] [address] [place] Bilirubin.conjugated [Mass/Vol] mg/dL Normal <0.2 [facility] Comment on above: Order Comment: Speci men Type: BLOOD SPECIMENOrdering Facility: [facility] Address: [address] [place] [address] Performed By: #### 1 798-8, 29623-0, 3040-3, LIPNF ####[facility] LABCLIA [id number] [place] [address] [place] Protein [Mass/Vol] 6.9 g/dL Normal 6.3-8.0 [facility] Comment on above: Order Comment: Speci men Type: BLOOD SPECIMENOrdering Facility: [facility] Address: [address] [place] [address] Performed By: #### 1 798-8, 39224-2, 3040-3, LIPNF ####[facility] LABCLIA [id number] [place] [address] [place] LIPID PANEL, NONFASTINGon Cholesterol [Mass/Vol] 117 mg/dL Normal <200 [facility] Comment on above: Order Comment: Speci men Type: BLOOD SPECIMENOrdering Facility: [facility] Address: [address] [place] [address] Result Comment: <200 mg/dL, Desirable 200-239 mg/dL, Borderline high>239 mg/dL, High Performed By: #### 1 798-8, 29398-3, 3040-3, LIPNF ####[facility] LABCLIA [id number] [place] [address] [place] HDL CHOLESTEROL, NF 22 mg/dL Low >39 [facility] Comment on above: Order Comment: Speci men Type: BLOOD SPECIMENOrdering Facility: [facility] Address: [address] [place] [address] Result Comment: 40-5 9 mg/dL, Acceptable>59 mg/dL, High: Negative risk factor for coronary heart disease<40 mg/dL, Low: Positive risk factor for coronary heart disease Performed By: #### 1 798-8, 31082-5, 3040-3, LIPNF ####[facility] LABCLIA [id number] [place] [address] [place] LDL CHOLESTEROL, NF 20 mg/dL Normal <100 [facility] Comment on above: Order Comment: Speci men Type: BLOOD SPECIMENOrdering Facility: [facility] Address: [address] [place] [address] Result Comment: <100 mg/dL, Optimal 100-129 mg/dL, Near optimal/above optimal 130-159 mg/dL, Borderline high 160-189 mg/dL, High>189 mg/dL, Very highSecondary prevention optimal LDL Cholesterol levels are recommended to be < 70 mg/dL Performed By: #### 1 798-8, 05977-3, 0-3, LIPNF ####[facility] LABCLIA [id number] [address] [place] LDL/HDL RATIO, NF 0.91 mg/dL Normal <2.54 [facility] Comment on above: Order Comment: Catherine hendrix Type: BLOOD SPECIMENOrdering Facility: [facility] Address: [address] [place] [address] Result Comment: Refe rence:1. National Cholesterol Education Program ATP III Guideline At-A-Glance Quick Desk Reference: National Heart, Lung, and Blood [place]. National Institutes of Health. 2001: NIH Publication No. 01-3305.2. An International Atherosclerosis Society position paper: global recommendations for the management of dyslipidemia: executive summary, Atherosclerosis. 2014: 232(2):410-413. Performed By: #### 1 798-8, 59752-1, 3040-3, LIPNF ####[facility] LABCLIA [id number] [place] [address] [place] NON HDL CHOL, NF 95 mg/dL Normal <130 [facility] Comment on above: Order Comment: Speci men Type: BLOOD SPECIMENOrdering Facility: [facility] Address: [address] [place] [address] Result Comment: <130 mg/dL, Optimal 130-159 mg/dL, Near optimal/above optimal 160-189 mg/dL, Borderline high 190-219 mg/dL, High>219 mg/dL, Very highSecondary prevention optimal non HDL Cholesterol levels are recommended to be <100 mg/dL Performed By: #### 1 798-8, 54276-3, 3040-3, LIPNF ####[facility] LABCLIA [id number] [place] [address] [place] T CHOL/HDL RATIO NF 5.32 mg/dL High <5.10 [facility] Comment on above: Order Comment: Speci men Type: BLOOD SPECIMENOrdering Facility: [facility] Address: [address] [place] [address] Performed By: #### 1 798-8, 98254-6, 3040-3, LIPNF ####[facility] LABCLIA [id number] [place] [address] [place] TRIGLYCERIDES, NF 377 mg/dL High <150 [facility] Comment on above: Order Comment: Speci men Type: BLOOD SPECIMENOrdering Facility: [facility] Address: [address] [place] [address] Result Comment: <150 mg/dL, Normal 150-199 mg/dL, Borderline high 200-499 mg/dL, High>499 mg/dL, Very high Performed By: #### 1 798-8, 04610-6, 3040-3, LIPNF ####[facility] LABCLIA [id number] [place] [id number] [place] VLDL CHOLESTEROL, NF 75 mg/dL High <30 [facility] Comment on above: Order Comment: Speci men Type: BLOOD SPECIMENOrdering Facility: [facility] Address: [address] [place] [address] Performed By: #### 1 798-8, 84113-9, 3040-3, LIPNF ####[facility] [id number] [place] [address] [place] Lipase SerPl-cCncon 10-14-19 25 Lipase [Catalytic activity/Vol] 31 U/L Normal 16-61 [facility] Comment on above: Order Comment: Speci men Type: BLOOD SPECIMENOrdering Facility: [facility] Address: [address] [place] [address] Performed By: #### 1 798-8, 86003-8, 3040-3, LIPNF ####[facility] [id number] [place] [address] [place] CNOVon 09-17-2024 CNOV Normal [facility] CNTHERAPYon 08-26-2024 CNTHERAPY Normal [facility] CNOVon 08-19-2024 CNOV Normal [facility] PAIN PANEL, UR QUANTon 08-19 6-Cmhdmqobrr-9,5-Dimet hyl-3,3-Diphenylpyrrol idine (EDDP) Confirm (U) [Mass/Vol] <6 Normal <6 [facility] Comment on above: Order Comment: Speci men Type: URINE SPECIMENOrdering Facility: [facility] Address: [address] [place] [address] Result Comment: EDDP is a metabolite of methadone. Performed By: #### L [id number] ####[facility] [id number] [place] [address] [place] 6-Monoacetylmorphine (6-FIGEUROA) (U) [Mass/Vol] <5 Normal <5 [facility] Comment on above: Order Comment: Speci men Type: URINE SPECIMENOrdering Facility: [facility] Address: [address] [place] [address] Result Comment: 6-MA M (6-monoacetylmorphine, also known as 6-acetylmorphine) is a unique metabolite of heroin. Presence of 6-FIGUEROA indicates use of heroin. 6-FIGUEROA is further metabolized to morphine and absence of 6-FIGUEROA does not rule out the use of heroin. Performed By: #### L [id number] ####[facility] [id number] [place] [address] [place] Amphetamine Confirm (U) [Mass/Vol] <5 Normal <5 [facility] Comment on above: Order Comment: Speci men Type: URINE SPECIMENOrdering Facility: [facility] Address: [address] [place] [address] Performed By: #### L [id number] ####[facility] [id number] [place] [address] [place] Benzoylecgonine Confirm (U) [Mass/Vol] <24 Normal <24 [facility] Comment on above: Order Comment: Speci men Type: URINE SPECIMENOrdering Facility: [facility] Address: [address] [place] [address] Result Comment: Horacio oylecgonine is a metabolite of cocaine. Performed By: #### L [id number] ####[facility] [id number] [place] [address] [place] Buprenorphine (U) [Mass/Vol] <20 Normal <20 [facility] Comment on above: Order Comment: Speci men Type: URINE SPECIMENOrdering Facility: [facility] Address: [address] [place] [address] Performed By: #### L [id number] ####[facility] [id number] [place] [address] [place] Cannabinoids Confirm (U) [Mass/Vol] <16 Normal <16 [facility] Comment on above: Order Comment: Speci men Type: URINE SPECIMENOrdering Facility: [facility] Address: [address] [place] [address] Result Comment: Tetr ahydrocannabinol carboxylic acid (THCA) is a metabolite of fnhrg-0-euyxqnbachamehcbrflh which is the main active component of marijuana. Performed By: #### L [id number] ####[facility] LABIA [id number] [place] Codeine Confirm (U) [Mass/Vol] <11 Normal <11 [facility] Comment on above: Order Comment: Speci men Type: URINE SPECIMENOrdering Facility: [facility] Address: [address] [place] [address] Performed By: #### L [id number] ####[facility] [id number] [address] [place] Dihydrocodeine Confirm (U) [Mass/Vol] <5 Normal <5 [facility] Comment on above: Order Comment: Speci men Type: URINE SPECIMENOrdering Facility: [facility] Address: [address] [place] [address] Performed By: #### L [id number] ####[facility] [id number] [place] [address] [place] fentaNYL Confirm (U) [Mass/Vol] <6 Normal <6 [facility] Comment on above: Order Comment: Speci men Type: URINE SPECIMENOrdering Facility: [facility] Address: [address] [place] [address] Performed By: #### L [id number] ####[facility] [id number] [address] [place] HYDROcodone Confirm (U) [Mass/Vol] <8 Normal <8 [facility] Comment on above: Order Comment: Speci men Type: URINE SPECIMENOrdering Facility: [facility] Address: [address] [place] [address] Result Comment: Hydr ocodone is a metabolite of dihydrocodeine. Performed By: #### L [id number] ####[facility] [id number] [place] [address] [place] HYDROmorphone Confirm (U) [Mass/Vol] <5 Normal <5 [facility] Comment on above: Order Comment: Speci men Type: URINE SPECIMENOrdering Facility: [facility] Address: [address] [place] [address] Result Comment: Hydr omorphone is a metabolite of hydrocodone. Performed By: #### L [id number] ####[facility] LABIA [id number] [place] [address] [place] Methadone Confirm (U) [Mass/Vol] <16 Normal <16 [facility] Comment on above: Order Comment: Speci men Type: URINE SPECIMENOrdering Facility: [facility] Address: [address] [place] [address] Performed By: #### L [id number] ####[facility] [id number] [place] [address] [place] Methamphetamine Confirm (U) [Mass/Vol] <8 Normal <8 [facility] Comment on above: Order Comment: Speci men Type: URINE SPECIMENOrdering Facility: [facility] Address: [address] [place] [address] Performed By: #### L [id number] ####[facility] LABIA [id number] [place] [address] [place] Morphine Confirm (U) [Mass/Vol] <10 Normal <10 [facility] Comment on above: Order Comment: Speci men Type: URINE SPECIMENOrdering Facility: [facility] Address: [address] [place] [address] Result Comment: Morp zoey is a metabolite of codeine and heroin. Performed By: #### L [id number] ####[facility] LABIA [id number] [place] [address] [place] Norbuprenorphine (U) [Mass/Vol] <20 Normal <20 [facility] Comment on above: Order Comment: Speci men Type: URINE SPECIMENOrdering Facility: [facility] Address: [address] [place] [address] Result Comment: Norb uprenorphine is the primary active metabolite of buprenorphine. Performed By: #### L [id number] ####[facility] LABCLIA [id number] [place] [address] [place] Norfentanyl Confirm (U) [Mass/Vol] <6 Normal <6 [facility] Comment on above: Order Comment: Speci men Type: URINE SPECIMENOrdering Facility: [facility] Address: [address] [place] [address] Result Comment: Norf entanyl is a metabolite of fentanyl. Performed By: #### L [id number] ####[facility] LABIA [id number] [place] [address] [place] Nortramadol (U) [Mass/Vol] <20 Normal <20 [facility] Comment on above: Order Comment: Speci men Type: URINE SPECIMENOrdering Facility: [facility] Address: [address] [place] [address] Result Comment: Desm ethyltramadol is a metabolite of tramadol. Performed By: #### L [id number] ####[facility] [id number] [place] [address] [place] NOTE,UR PAIN ALFARO Normal [facility] Comment on above: Order Comment: Speci men Type: URINE SPECIMENOrdering Facility: [facility] Address: [address] [place] [address] Result Comment: This test is for medical use only.This test was developed, and its performance characteristics determined by the [facility] Department of Pathology and Laboratory Medicine. It has not been cleared or approved by the FDA. The [facility] Department of Pathology and Laboratory Medicine is regulated under CLIA as qualified to perform high-complexity testing. This test is used for clinical purposes. It should not be regarded as investigational or for research. Performed By: #### L [id number] ####[facility] LABIA [id number] [address] [place] oxyCODONE Confirm (U) [Mass/Vol] <10 Normal <10 [facility] Comment on above: Order Comment: Speci men Type: URINE SPECIMENOrdering Facility: [facility] Address: [address] [place] [address] Performed By: #### L [id number] ####[facility] LABCLIA [id number] [place] [address] [place] oxyMORphone Confirm (U) [Mass/Vol] <5 Normal <5 [facility] Comment on above: Order Comment: Speci men Type: URINE SPECIMENOrdering Facility: [facility] Address: [address] [place] [address] Result Comment: Oxym orphone is a metabolite of oxycodone. Performed By: #### L [id number] ####[facility] LABCLIA [id number] [address] [place] traMADol Confirm (U) [Mass/Vol] <25 Normal <25 [facility] Comment on above: Order Comment: Speci men Type: URINE SPECIMENOrdering Facility: [facility] Address: [address] [place] [address] Performed By: #### L [id number] ####[facility] LABIA [id number] [place] [address] [place] SPECIMEN VALIDITY, URINEon 10-19-2023 CHROMATE,URINE <10 Normal <50 [facility] Comment on above: Order Comment: Speci men Type: URINE SPECIMENOrdering Facility: [facility] Address: [address] [place] [address] Performed By: #### L [id number] ####[facility] LABCLIA [id number] [place] [address] [place] CREATININE,URINE 180.5 mg/dL Normal 20.0-300.0 [facility] Comment on above: Order Comment: Speci men Type: URINE SPECIMENOrdering Facility: [facility] Address: [address] [place] [address] Performed By: #### L [id number] ####[facility] LABCLIA [id number] [place] [id number] [place] NITRITES,URINE <50 Normal <500 [facility] Comment on above: Order Comment: Speci men Type: URINE SPECIMENOrdering Facility: [facility] Address: [address] [place] [address] Performed By: #### L [id number] ####[facility] LABCLIA [id number] [place] [address] [place] OXIDANTS,URINE <38 Normal <200 [facility] Comment on above: Order Comment: Speci men Type: URINE SPECIMENOrdering Facility: [facility] Address: [address] [place] [address] Performed By: #### L [id number] ####[facility] LABCLIA [id number] [place] [address] [place] pH (U) 5.7 [pH] Normal 4.5-8.0 [facility] Comment on above: Order Comment: Speci men Type: URINE SPECIMENOrdering Facility: [facility] Address: [address] [place] [address] Performed By: #### L [id number] ####[facility] LABCLIA [id number] [place] [address] [place] SPEC GRAVITY,UR 1.028 Normal 1.003-1.035 [facility] Comment on above: Order Comment: Speci men Type: URINE SPECIMENOrdering Facility: [facility] Address: [address] [place] [address] Performed By: #### L [id number] ####[facility] LABCLIA [id number] [address] [id number] [address] [place] SPECIMEN VALIDITY QUALITY Specimen quality results within acceptable limits Normal [facility] Comment on above: Order Comment: Speci men Type: URINE SPECIMENOrdering Facility: [facility] Address: [address] [place] [address] Performed By: #### L [id number] ####[facility] LABCLIA [id number] [place] [address] [place] TOXICOLOGY SCREEN, ROUTINE U RINEon 08-19-2024 Amphetamines Confirm (U) [Mass/Vol] Negative Normal Negative [facility] Comment on above: Order Comment: Speci men Type: URINE SPECIMENOrdering Facility: [facility] Address: [address] [place] [address] Result Comment: Cuto ff threshold at 1000 ng/mL. Performed By: #### U TOX2 ####[facility] LABIA [id number] [place] [address] [place] BARBITURATES, URINE Negative Normal Negative [facility] Comment on above: Order Comment: Speci men Type: URINE SPECIMENOrdering Facility: [facility] Address: [address] [place] [address] Result Comment: Cuto ff threshold at 200 ng/mL. Performed By: #### U TOX2 ####[facility] LABCLIA [id number] [place] [address] [place] BENZODIAZEPINES, UR Negative Normal Negative [facility] Comment on above: Order Comment: Speci men Type: URINE SPECIMENOrdering Facility: [facility] Address: [address] [place] [address] Result Comment: Cuto ff threshold at 200 ng/mL. Performed By: #### U TOX2 ####[facility] LABCLIA [id number] [place] [address] [place] Cannabinoids Screen Ql (U) Negative Normal Negative [facility] Comment on above: Order Comment: Speci men Type: URINE SPECIMENOrdering Facility: [facility] Address: [address] [place] [address] Result Comment: Cuto ff threshold at 50 ng/mL. Performed By: #### U TOX2 ####[facility] LABCLIA [id number] [place] [address] [place] Cocaine Ql (U) Negative Normal Negative [facility] Comment on above: Order Comment: Speci men Type: URINE SPECIMENOrdering Facility: [facility] Address: [address] [place] [address] Result Comment: Cuto ff threshold at 300 ng/mL. Performed By: #### U TOX2 ####[facility] LABCLIA [id number] [place] [address] [place] Ethanol (U) [Mass/Vol] <11 Normal <11 [facility] Comment on above: Order Comment: Speci men Type: URINE SPECIMENOrdering Facility: [facility] Address: [address] [place] [address] Performed By: #### U TOX2 ####[facility] LABCLIA [id number] [place] [address] [place] Opiates Screen Ql (U) Negative Normal Negative [place] Comment on above: Order Comment: Speci men Type: URINE SPECIMENOrdering Facility: [facility] Address: [address] [place] [address] Result Comment: Cuto ff threshold at 300 ng/mL. Performed By: #### U TOX2 ####[facility] LABCLIA [id number] [place] [address] [place] oxyCODONE cutoff Screen (U) [Mass/Vol] Negative Normal Negative [facility] Comment on above: Order Comment: Speci men Type: URINE SPECIMENOrdering Facility: [facility] Address: [address] [place] [address] Result Comment: Cuto ff threshold at 100 ng/mL. Performed By: #### U TOX2 ####[facility] LABCLIA [id number] [place] [address] [place] Phencyclidine Ql (U) Negative Normal Negative [facility] Comment on above: Order Comment: Speci men Type: URINE SPECIMENOrdering Facility: [facility] Address: [address] [place] [address] [place] [address] Result Comment: Cuto ff threshold at 25 ng/mL. Performed By: #### U TOX2 ####[facility] LABCLIA [id number] [place] [address] [place] CNTHERAPYon 08-05-2024 CNTHERAPY Normal [facility] THERAPY NTon 08-05-2024 THERAPY NT Normal [facility] CNTHERAPYon 07-22-2024 CNTHERAPY Normal [facility] CNTHERAPYon 06-28-2024 CNTHERAPY Normal [facility] THERAPY NTon 06-28-2024 THERAPY NT Normal [facility] CNTHERAPYon 06-12-2024 CNTHERAPY Normal [facility] THERAPY NTon 06-12-2024 THERAPY NT Normal [facility] CNOVon 06-06-2024 CNOV Normal [facility] CNPNon 05-27-2024 CNPN Normal [facility] XR Shoulder - right 3 Viewso n 05-26-2024 IMPRESSION: No acute bone abnormality. Drill Setup Operator: GORGE Transcribe Date/Time: May 26 2024 7:31P Dictated by : MARYANN MURILLO MD This examination was interpreted and the report reviewed and electronically signed by: MARYANN MURILLO MD on May 26 2024 7:32PM [facility] DIVISION OF RADIOLOGY * * [...] joint. _ _ DIVISION OF RADIOLOGY Provider, [facility] Lorenzo neely [place] - 05/26/2024 * * *Final Report* * [...] _ IMPRESSION IMPRESSION: No acute bone abnormality. Drill Setup Operator: GORGE Transcribe Date/Time: May 26 2024 7:31P Dictated by : MARYANN MURILLO MD This examination was interpreted and the report reviewed and electronically signed by: MARYANN MURILLO MD on May 26 2024 7:32PM EST [facility] XR Shoulder - right 3 ViewsO rdered By: [facility] Provider on 05-26-2024 [facility] CBC W Auto Differential pane l (Bld)on 05-21-2024 Basophils (Bld) [#/Vol] 0.06 10*3/uL Normal <0.11 [facility] Comment on above: Order Comment: Speci men Type: BLOOD SPECIMENOrdering Facility: [facility] Address: [address] [place] [address] Performed By: #### 5 7021-8 ####[facility] LABCLIA [id number] [place] [address] [place] Basophils/100 WBC (Bld) 0.6 % Normal [facility] Comment on above: Order Comment: Speci men Type: BLOOD SPECIMENOrdering Facility: [facility] Address: [address] [place] [address] Performed By: #### 5 7021-8 ####[facility] LABCLIA [id number] [place] [address] [place] Differential cell count method Nom (Bld) Auto Normal [facility] Comment on above: Order Comment: Speci men Type: BLOOD SPECIMENOrdering Facility: [facility] Address: [address] [place] [address] Performed By: #### 5 7021-8 ####[facility] LABCLIA [id number] [place] [address] [place] Eosinophils (Bld) [#/Vol] 0.17 10*3/uL Normal <0.46 [facility] Comment on above: Order Comment: Speci men Type: BLOOD SPECIMENOrdering Facility: [facility] Address: [address] [place] [address] Performed By: #### 5 7021-8 ####[facility] LABCLIA [id number] [place] [address] [place] Eosinophils/100 WBC (Bld) 1.6 % Normal [facility] Comment on above: Order Comment: Speci men Type: BLOOD SPECIMENOrdering Facility: [facility] Address: [address] [place] [address] Performed By: #### 5 7021-8 ####[facility] LABIA [id number] [place] [address] [place] Erythrocyte distribution width (RBC) [Ratio] 11.7 % Normal 11.5-15.0 [facility] Comment on above: Order Comment: Speci men Type: BLOOD SPECIMENOrdering Facility: [facility] Address: [address] [place] [address] Performed By: #### 5 7021-8 ####[facility] LABCLIA [id number] [place] [address] [place] Hematocrit (Bld) [Volume fraction] 44.8 % Normal 39.0-51.0 [facility] Comment on above: Order Comment: Speci men Type: BLOOD SPECIMENOrdering Facility: [facility] Address: [address] [place] [address] Performed By: #### 5 7021-8 ####[facility] LABCLIA [id number] [place] [address] [place] Hemoglobin (Bld) [Mass/Vol] 15.3 g/dL Normal 13.0-17.0 [facility] Comment on above: Order Comment: Speci men Type: BLOOD SPECIMENOrdering Facility: [facility] Address: [address] [place] [address] Performed By: #### 5 7021-8 ####[facility] LABIA [id number] [place] [address] [place] Immature granulocytes (Bld) [#/Vol] 0.03 10*3/uL Normal <0.10 [facility] Comment on above: Order Comment: Speci men Type: BLOOD SPECIMENOrdering Facility: [facility] Address: [address] [place] [address] Performed By: #### 5 7021-8 ####[facility] LABIA [id number] [place] [address] [place] Immature granulocytes/100 WBC (Bld) 0.3 % Normal [facility] Comment on above: Order Comment: Speci men Type: BLOOD SPECIMENOrdering Facility: [facility] Address: [address] [place] [address] Performed By: #### 5 7021-8 ####[facility] LABIA [id number] [place] [address] [place] Lymphocytes (Bld) [#/Vol] 3.30 10*3/uL Normal 1.00-4.00 [facility] Comment on above: Order Comment: Speci men Type: BLOOD SPECIMENOrdering Facility: [facility] Address: [address] [place] [address] Performed By: #### 5 7021-8 ####[facility] LABIA [id number] [place] [address] [place] Lymphocytes/100 WBC (Bld) 31.6 % Normal [facility] Comment on above: Order Comment: Speci men Type: BLOOD SPECIMENOrdering Facility: [facility] Address: [address] [place] [address] Performed By: #### 5 7021-8 ####[facility] LABIA [id number] [place] [address] [place] MCH (RBC) [Entitic mass] 30.7 pg Normal 26.0-34.0 [facility] Comment on above: Order Comment: Speci men Type: BLOOD SPECIMENOrdering Facility: [facility] Address: [address] [place] [address] Performed By: #### 5 7021-8 ####[facility] [id number] [place] [address] [place] MCHC (RBC) [Mass/Vol] 34.2 g/dL Normal 30.5-36.0 [place] Comment on above: Order Comment: Speci men Type: BLOOD SPECIMENOrdering Facility: [facility] Address: [address] [place] [address] Performed By: #### 5 7021-8 ####[facility] LABIA [id number] [place] [address] [place] MCV (RBC) [Entitic vol] 89.8 fL Normal 80.0-100.0 [facility] Comment on above: Order Comment: Speci men Type: BLOOD SPECIMENOrdering Facility: [facility] Address: [address] [place] [address] Performed By: #### 5 7021-8 ####[facility] LABIA [id number] [place] [address] [place] Monocytes (Bld) [#/Vol] 0.49 10*3/uL Normal <0.87 [facility] Comment on above: Order Comment: Speci men Type: BLOOD SPECIMENOrdering Facility: [facility] Address: [address] [place] [address] Performed By: #### 5 7021-8 ####[facility] LABCLIA [id number] [place] [address] [place] Monocytes/100 WBC (Bld) 4.7 % Normal [facility] Comment on above: Order Comment: Speci men Type: BLOOD SPECIMENOrdering Facility: [facility] Address: [address] [place] [address] Performed By: #### 5 7021-8 ####[facility] LABCLIA [id number] [place] [address] [place] Neutrophils (Bld) [#/Vol] 6.39 10*3/uL Normal 1.45-7.50 [facility] Comment on above: Order Comment: Speci men Type: BLOOD SPECIMENOrdering Facility: [facility] Address: [address] [place] [address] Performed By: #### 5 7021-8 ####[facility] LABCLIA [id number] [place] [address] [place] Neutrophils/100 WBC (Bld) 61.2 % Normal [facility] Comment on above: Order Comment: Speci men Type: BLOOD SPECIMENOrdering Facility: [facility] Address: [address] [place] [address] Performed By: #### 5 7021-8 ####[facility] LABCLIA [id number] [place] [address] [place] Nucleated RBC (Bld) [#/Vol] 10*3/uL Normal <0.01 [facility] Comment on above: Order Comment: Speci men Type: BLOOD SPECIMENOrdering Facility: [facility] Address: [address] [place] [address] Performed By: #### 5 7021-8 ####[facility] LABCLIA [id number] [place] [address] [place] Nucleated RBC/100 WBC (Bld) [Ratio] 0.0 /100 WBC Normal [facility] Comment on above: Order Comment: Speci men Type: BLOOD SPECIMENOrdering Facility: [facility] Address: [address] [place] [address] Performed By: #### 5 7021-8 ####[facility] LABCLIA [id number] [place] [address] [place] Platelet mean volume (Bld) [Entitic vol] 12.9 fL High 9.0-12.7 [facility] Comment on above: Order Comment: Speci men Type: BLOOD SPECIMENOrdering Facility: [facility] Address: [address] [place] [address] Performed By: #### 5 7021-8 ####[facility] LABCLIA [id number] [place] [address] [place] Platelets (Bld) [#/Vol] 254 10*3/uL Normal 150-400 [facility] Comment on above: Order Comment: Speci men Type: BLOOD SPECIMENOrdering Facility: [facility] Address: [address] [place] [address] Performed By: #### 5 7021-8 ####[facility] LABCLIA [id number] [place] [address] [place] RBC (Bld) [#/Vol] 4.99 10*6/uL Normal 4.20-6.00 [facility] Comment on above: Order Comment: Speci men Type: BLOOD SPECIMENOrdering Facility: [facility] Address: [address] [place] [address] Performed By: #### 5 7021-8 ####[facility] LABCLIA [id number] [place] [address] [place] WBC (Bld) [#/Vol] 10.44 10*3/uL Normal 3.70-11.00 [facility] Comment on above: Order Comment: Speci men Type: BLOOD SPECIMENOrdering Facility: [facility] Address: [address] [place] [address] Performed By: #### 5 7021-8 ####[facility] LABCLIA [id number] [place] [id number] [place] CNOVon 05-21-2024 CNOV Normal [facility] Comprehensive metabolic 2000 panelon 05-21-2024 Albumin [Mass/Vol] 4.3 g/dL Normal 3.9-4.9 [facility] Comment on above: Order Comment: Speci men Type: BLOOD SPECIMENOrdering Facility: [facility] Address: [address] [place] [address] Performed By: #### 2 4323-8, 3016-3, LIPNF ####[facility] LABCLIA [id number] [place] [address] [place] ALP [Catalytic activity/Vol] 168 U/L High 38-113 [facility] Comment on above: Order Comment: Speci men Type: BLOOD SPECIMENOrdering Facility: [facility] Address: [address] [place] [address] Performed By: #### 2 4323-8, 3016-3, LIPNF ####[facility] LABCLIA [id number] [place] [address] [place] ALT [Catalytic activity/Vol] 24 U/L Normal 10-54 [facility] Comment on above: Order Comment: Speci men Type: BLOOD SPECIMENOrdering Facility: [facility] Address: [address] [place] [address] Performed By: #### 2 4323-8, 3016-3, LIPNF ####[facility] LABIA [id number] [place] [address] [place] Anion gap [Moles/Vol] 13 mmol/L Normal 8-15 [place] Comment on above: Order Comment: Speci men Type: BLOOD SPECIMENOrdering Facility: [facility] Address: [address] [place] [address] Performed By: #### 2 4323-8, 3016-3, LIPNF ####[facility] LABIA [id number] [place] [address] [place] AST [Catalytic activity/Vol] 36 U/L Normal 14-40 [facility] Comment on above: Order Comment: Speci men Type: BLOOD SPECIMENOrdering Facility: [facility] Address: [address] [place] [address] Performed By: #### 2 4323-8, 3016-3, LIPNF ####[facility] LABIA [id number] [place] [address] [place] Bilirubin [Mass/Vol] 0.3 mg/dL Normal 0.2-1.3 [facility] Comment on above: Order Comment: Speci men Type: BLOOD SPECIMENOrdering Facility: [facility] Address: [address] [place] [address] Performed By: #### 2 4323-8, 3016-3, LIPNF ####[facility] LABIA [id number] [place] [address] [place] Calcium [Mass/Vol] 9.4 mg/dL Normal 8.5-10.2 [facility] Comment on above: Order Comment: Speci men Type: BLOOD SPECIMENOrdering Facility: [facility] Address: [address] [place] [address] Performed By: #### 2 4323-8, 3016-3, LIPNF ####[facility] LABIA [id number] [place] [id number] [place] Chloride [Moles/Vol] 98 mmol/L Normal 98-107 [facility] Comment on above: Order Comment: Speci men Type: BLOOD SPECIMENOrdering Facility: [facility] Address: [address] [place] [address] Performed By: #### 2 4323-8, 3016-3, LIPNF ####[facility] LABCLIA [id number] [place] [address] [place] CO2 [Moles/Vol] 22 mmol/L Normal 22-30 [facility] Comment on above: Order Comment: Speci men Type: BLOOD SPECIMENOrdering Facility: [facility] Address: [address] [place] [address] Performed By: #### 2 4323-8, 6-3, LIPNF ####[facility] LABCLIA [id number] [place] [id number] [place] Creatinine [Mass/Vol] 0.73 mg/dL Normal 0.73-1.22 [place] Comment on above: Order Comment: Speci men Type: BLOOD SPECIMENOrdering Facility: [facility] Address: [address] [place] [address] Performed By: #### 2 4323-8, 3015-3, LIPNF ####[facility] LABIA [id number] [place] [address] [place] Creatinine and Glomerular filtration rate.predicted panel (S/P/Bld) 112 mL/min/1.73m??? Normal >=60 [facility] Comment on above: Order Comment: Speci men Type: BLOOD SPECIMENOrdering Facility: [facility] Address: [address] [place] [address] Result Comment: Tia mated Glomerular Filtration Rate [...] accurately reflect actual GFR. Performed By: #### 2 4323-8, 6-3, LIPNF ####[facility] LABCLIA [id number] [place] [id number] [place] Glucose [Mass/Vol] 361 mg/dL High 74-99 [facility] Comment on above: Order Comment: Speci men Type: BLOOD SPECIMENOrdering Facility: [facility] Address: [address] [place] [address] Result Comment: The [place] [employer] (ADA) provides guidance for cutoff values for fasting glucose and random glucose. The ADA defines fasting as no caloric intake for at least 8 hours. Fasting plasma glucose results between 100 to 125 mg/dL indicate increased risk for diabetes (prediabetes).Fasting plasma glucose results greater than or equal to 126 mg/dL meet the criteria for diagnosis of diabetes. In the absence of unequivocal hyperglycemia, results should be confirmed by repeat testing. In a patient with classic symptoms of hyperglycemia or hyperglycemic crisis, random plasma glucose results greater than or equal to 200 mg/dL meet the criteria for diagnosis of diabetes.Reference: Standards of Medical Care in Diabetes 2016, [place] [employer]. Diabetes Care. 2016.39(Suppl 1). Performed By: #### 2 4323-8, 3016-3, LIPNF ####[facility] LABCLIA [id number] [place] [address] [place] Potassium [Moles/Vol] 4.3 mmol/L Normal 3.7-5.1 [place] Comment on above: Order Comment: Speci men Type: BLOOD SPECIMENOrdering Facility: [facility] Address: [address] [place] [address] Performed By: #### 2 4323-8, 3016-3, LIPNF ####[facility] LABCLIA [id number] [place] [address] [place] Protein [Mass/Vol] 6.7 g/dL Normal 6.3-8.0 [facility] Comment on above: Order Comment: Speci men Type: BLOOD SPECIMENOrdering Facility: [facility] Address: [address] [place] [address] Performed By: #### 2 4323-8, 3016-3, LIPNF ####[facility] LABCLIA [id number] [place] [address] [place] Sodium [Moles/Vol] 133 mmol/L Low 136-144 [facility] Comment on above: Order Comment: Speci men Type: BLOOD SPECIMENOrdering Facility: [facility] Address: [address] [place] [address] Performed By: #### 2 4323-8, 3016-3, LIPNF ####[facility] LABIA [id number] [place] [address] [place] Urea nitrogen [Mass/Vol] 9 mg/dL Normal 9-24 [facility] Comment on above: Order Comment: Speci men Type: BLOOD SPECIMENOrdering Facility: [facility] Address: [address] [place] [address] Performed By: #### 2 4323-8, 3016-3, LIPNF ####[facility] [id number] [place] [address] [place] HbA1c (Bld)on 05-21-2024 Average glucose Estimated from glycated hemoglobin (Bld) [Mass/Vol] 295 mg/dL Normal [facility] Comment on above: Order Comment: Laytoni men Type: BLOOD SPECIMENOrdering Facility: [facility] Address: [address] [place] [address] Result Comment: eAG: (Estimated average glucose) is a calculated value from HgbA1c and is sales service representative of the average blood glucose level in the last 2-3 month period. Performed By: #### 5 5454-3 ####[facility] [id number] [place] [address] [place] HbA1c (Bld) [Mass fraction] 11.9 % High 4.3-5.6 [facility] Comment on above: Order Comment: Laytoni men Type: BLOOD SPECIMENOrdering Facility: [facility] Address: [address] [place] [address] Result Comment: Amer [place] Diabetes Association guidelines indicate that patients with HgbA1c in the range 5.7-6.4% are at increased risk for development of diabetes, and intervention by lifestyle modification may be beneficial. HgbA1c greater or equal to 6.5% is considered diagnostic of diabetes. Performed By: #### 5 5454-3 ####[facility]CL[facility] [id number] [place] [address] [place] LIPID PANEL, NONFASTINGon Cholesterol [Mass/Vol] 213 mg/dL High <200 [facility] Comment on above: Order Comment: Speci men Type: BLOOD SPECIMENOrdering Facility: [facility] Address: [address] [place] [address] Result Comment: <200 mg/dL, Desirable 200-239 mg/dL, Borderline high>239 mg/dL, High Performed By: #### 2 4323-8, 6-3, LIPNF ####[facility] [id number] [place] [address] [place] HDL CHOLESTEROL, NF 24 mg/dL Low >39 [facility] Comment on above: Order Comment: Speci men Type: BLOOD SPECIMENOrdering Facility: [facility] Address: [address] [place] [address] Result Comment: 40-5 9 mg/dL, Acceptable>59 mg/dL, High: Negative risk factor for coronary heart disease<40 mg/dL, Low: Positive risk factor for coronary heart disease Performed By: #### 2 4323-8, 6-3, LIPNF ####[facility] [id number] [place] [address] [place] LDL CHOLESTEROL, NF Normal [facility] Comment on above: Order Comment: Speci men Type: BLOOD SPECIMENOrdering Facility: [facility] Address: [address] [place] [address] Result Comment: Unab le to calculate due to increased Triglycerides. A Direct LDL Cholesterol measurement will not be performed. If clinically indicated, a fasting Basic Lipid Panel (LIPB) may be ordered. Performed By: #### 2 4323-8, 3016-3, LIPNF ####[facility] [id number] [place] [address] [place] LDL/HDL RATIO, NF Normal [facility] Comment on above: Order Comment: Speci men Type: BLOOD SPECIMENOrdering Facility: [facility] Address: [address] [place] [address] Result Comment: Unab le to calculate due to elevated Triglycerides.Reference:1. National Cholesterol Education Program ATP III Guideline At-A-Glance Quick Desk Reference: National Heart, Lung, and Blood [place]. National Institutes of Health. 2001: NIH Publication No. 01-3305.2. An International Atherosclerosis Society position paper: global recommendations for the management of dyslipidemia: executive summary, Atherosclerosis. 2014: 232(2):410-413. Performed By: #### 2 4323-8, 3016-3, LIPNF ####[facility] LABCL[facility] [id number] [place] [address] [place] NON HDL CHOL, NF 189 mg/dL High <130 [facility] Comment on above: Order Comment: Speci men Type: BLOOD SPECIMENOrdering Facility: [facility] Address: [address] [place] [address] Result Comment: <130 mg/dL, Optimal 130-159 mg/dL, Near optimal/above optimal 160-189 mg/dL, Borderline high 190-219 mg/dL, High>219 mg/dL, Very highSecondary prevention optimal non HDL Cholesterol levels are recommended to be <100 mg/dL Performed By: #### 2 4323-8, 3016-3, LIPNF ####[facility] LABCLIA [id number] [place] [address] [place] T CHOL/HDL RATIO NF 8.88 mg/dL High <5.10 [facility] Comment on above: Order Comment: Speci men Type: BLOOD SPECIMENOrdering Facility: [facility] Address: [address] [place] [address] Performed By: #### 2 4323-8, 3016-3, LIPNF ####[facility] LABCLIA [id number] [address] [address] [place], [place] 1046 mg/dL High <150 [facility] Comment on above: Order Comment: Speci men Type: BLOOD SPECIMENOrdering Facility: [facility] Address: [address] [place] [address] Result Comment: <150 mg/dL, Normal 150-199 mg/dL, Borderline high 200-499 mg/dL, High>499 mg/dL, Very high Performed By: #### 2 4323-8, 3016-3, LIPNF ####[facility] LABCL[facility] [id number] [place] [address] [place] VLDL CHOLESTEROL, NF Normal [facility] Comment on above: Order Comment: Speci men Type: BLOOD SPECIMENOrdering Facility: [facility] Address: [address] [place] [address] Result Comment: Unab le to calculate due to elevated Triglycerides. Performed By: #### 2 4323-8, 3016-3, LIPNF ####[facility] LABCLIA [id number] [place] [address] [place] TSH SerPl-aCncon 05-21-2024 TSH Qn 1.330 m[IU]/L Normal 0.270-4.200 [facility] Comment on above: Order Comment: Speci men Type: BLOOD SPECIMENOrdering Facility: [facility] Address: [address] [place] [address] Performed By: #### 2 4323-8, 3016-3, LIPNF ####[facility] LABCLIA [id number] [place] [address] [place] XR SHLDR >/=3V AP/JUVENCIO AP/OTH R RTon 05-21-2024 XR SHLDR >/=3V AP/JUVENCIO AP/OTHR RT Normal [facility] XR Shoulder - right 3 Viewso n 05-21-2024 Radiology Study observation (narrative) [facility] US Thyroid glandon [facility] Radiology Study observation (narrative) [facility] US THYROID/PARATHYROIDon US THYROID/PARATHYROID * * *Final Report * * * DATE OF EXAM: Jan 19 2024 3:53PM AUGUSTO 1048 - US THYROID/PARATHYROID / PROCEDURE REASON: [...] 2 points Echogenicity: Isoechoic, 1 point Shape: Cobsy-shww-qgss, 0 points Margin: Smooth, 0 points Echogenic [...] 2 points Echogenicity: Isoechoic, 1 point Shape: Mlykm-npmq-fgic, 0 points Margin: Smooth, 0 points Echogenic [...] 1 point Echogenicity: Isoechoic, 1 point Shape: Yryvj-qusg-myhm, 0 points Margin: Smooth, 0 points Echogenic [...] not consider stability or previous biopsy results. Drill Setup Operator: GORGE Transcribe Date/Time: Jan 22 2024 3:09P Dictated by : RONNIE PAN DO This examination was interpreted and the report reviewed and electronically signed by: RONNIE PAN DO on Jan 22 2024 3:20PM EST [id number] Normal [facility] HEMOGLOBIN A1C (POC)on 01-16 HbA1c (Bld) [Mass fraction] 10.5 % Abnormal 4.3 - 5.6 % [facility] CBC W Auto Differential pane l (Bld)on 12-06-2023 Basophils (Bld) [#/Vol] 0.05 10*3/uL <0.11 k/uL [facility] Basophils/100 WBC (Bld) 0.6 % [facility] Differential cell count method Nom (Bld) Auto [facility] Eosinophils (Bld) [#/Vol] 0.12 10*3/uL <0.46 k/uL [facility] Eosinophils/100 WBC (Bld) 1.6 % [facility] Erythrocyte distribution width (RBC) [Ratio] 12.0 % 11.5 - 15.0 % [facility] Hematocrit (Bld) [Volume fraction] 46.1 % 39.0 - 51.0 % [facility] Hemoglobin (Bld) [Mass/Vol] 15.9 g/dL 13.0 - 17.0 g/dL [facility] Immature granulocytes (Bld) [#/Vol] <0.10 k/uL [facility] Immature granulocytes/100 WBC (Bld) 0.3 % [facility] Lymphocytes (Bld) [#/Vol] 3.22 10*3/uL 1.00 - 4.00 k/uL [facility] Lymphocytes/100 WBC (Bld) 41.8 % [facility] MCH (RBC) [Entitic mass] 31.4 pg 26.0 - 34.0 pg [facility] MCHC (RBC) [Mass/Vol] 34.5 g/dL 30.5 - 36.0 g/dL [facility] MCV (RBC) [Entitic vol] 91.1 fL 80.0 - 100.0 fL [facility] Monocytes (Bld) [#/Vol] 0.47 10*3/uL <0.87 k/uL [facility] Monocytes/100 WBC (Bld) 6.1 % [facility] Neutrophils (Bld) [#/Vol] 3.83 10*3/uL 1.45 - 7.50 k/uL [facility] Neutrophils/100 WBC (Bld) 49.6 % [facility] Nucleated RBC (Bld) [#/Vol] <0.01 k/uL [facility] Nucleated RBC/100 WBC (Bld) [Ratio] 0.0 /100 WBC [facility] Platelet mean volume (Bld) [Entitic vol] 12.8 fL High 9.0 - 12.7 fL [facility] Platelets (Bld) [#/Vol] 281 10*3/uL 150 - 400 k/uL [facility] RBC (Bld) [#/Vol] 5.06 10*6/uL 4.20 - 6.0 0 m/uL [facility] WBC (Bld) [#/Vol] 7.71 10*3/uL 3.70 - 11.00 k/uL [facility] Comprehensive metabolic 2000 panelon 12-06-2023 Albumin [Mass/Vol] 4.9 g/dL 3.9 - 4.9 g/dL [facility] ALP [Catalytic activity/Vol] 129 U/L High 38 - 113 U/L [facility] ALT [Catalytic activity/Vol] 17 U/L 10 - 54 U/L [facility] Anion gap [Moles/Vol] 11 mmol/L 9 - 18 mmol/L [facility] AST [Catalytic activity/Vol] 19 U/L 14 - 40 U/L [facility] Bilirubin [Mass/Vol] 0.2 mg/dL 0.2 - 1 .3 mg/dL [facility] Calcium [Mass/Vol] 10.2 mg/dL 8.5 - 10. 2 mg/dL [facility] Chloride [Moles/Vol] 104 mmol/L 97 - 10 5 mmol/L [facility] CO2 [Moles/Vol] 25 mmol/L 22 - 30 mmol/L [facility] Creatinine [Mass/Vol] 0.79 mg/dL 0.73 - 1.22 mg/dL [facility] Estimated Glomerular Filtration Rate 110 mL/min/1.73m >=60 mL/min/1.73 m [facility] Glucose [Mass/Vol] 178 mg/dL High 74 - 99 mg/dL [facility] Potassium [Moles/Vol] 4.8 mmol/L 3.7 - 5.1 mmol/L [facility] Protein [Mass/Vol] 7.1 g/dL 6.3 - 8.0 g/dL [facility] Sodium [Moles/Vol] 140 mmol/L 136 - 144 mmol/L [facility] Urea nitrogen [Mass/Vol] 12 mg/dL 9 - 24 mg/dL [facility] LIPID PANEL, NONFASTINGon Cholesterol [Mass/Vol] 200 mg/dL High <200 mg/dL [facility] HDL Cholesterol, Nonfasting 29 mg/dL Low >39 mg/dL [facility] LDL Cholesterol, Nonfasting 106 mg/dL High <100 mg/dL [facility] LDL/HDL Ratio, Nonfasting 3.66 mg/dL High <2.54 mg/dL [facility] Non HDL Cholesterol, Nonfasting 171 mg/dL High <130 mg/dL [facility] Total Chol/HDL Ratio, Nonfasting 6.90 mg/dL High <5.10 mg/dL [facility] Triglycerides, Nonfasting 325 mg/dL High <150 mg/dL [facility] VLDL Cholesterol, Nonfasting 65 mg/dL High <30 mg/dL [facility] MAGNESIUM BLDon 12-06-2023 Magnesium [Mass/Vol] 2.3 mg/dL 1.7 - 2 .3 mg/dL [facility] TSH BLDon 12-06-2023 TSH Qn 1.740 m[IU]/L 0.270 - 4.200 mIU/L [facility] Urinalysis complete panel (U )on 12-06-2023 Bacteria LM.HPF (Urine sed) [#/Area] Negative Negative /HPF [facility] Bilirubin Ql (U) Negative Negative [facility] Clarity (Unsp spec) Clear Clear [facility] Color (U) Yellow Yellow [facility] Epithelial cells LM.HPF (Urine sed) [#/Area] None Seen [facility] Glucose Test strip (U) [Mass/Vol] Negative Negative [facility] Hemoglobin Ql (U) Negative Negative [facility] Hyaline casts (Urine sed) [#/Area] 1-3 /LPF Abnormal 0 /LPF [facility] Ketones Ql (U) Negative Negative [facility] Leukocyte esterase Test strip Ql (U) Negative Negative [facility] Nitrite Ql (U) Negative Negative [facility] pH (U) 5.5 [pH] <8.5 [facility] Protein (U) [Mass/Vol] Negative Negative [facility] RBC LM.HPF (Urine sed) [#/Area] 0-2 /HPF 0-2 /HPF [facility] Specific gravity (U) [Rel density] 1.024 1.005 - 1.030 [facility] Urobilinogen Ql (U) 0.2 EU/dL 0.2-1.0 EU/dL [facility] WBC LM.HPF (Urine sed) [#/Area] 0-5 /HPF 0-5 /HPF [facility] VITAMIN B12 BLOODon 12-06-19 24 Cobalamin (Vitamin B12) [Mass/Vol] 418 pg/mL 232 - 1,245 pg/mL [facility] XR FOOT RIGHT 3+ VIEWSon XR FOOT RIGHT 3+ VIEWS Interpreted By: Doretha Patel, STUDY: XR FOOT RIGHT 3+ VIEWS; ; 10/27/2023 9:58 am INDICATION: Signs/Symptoms:medial aspect pain. COMPARISON: None. ACCESSION NUMBER(S): [id number] ORDERING CLINICIAN: JARVIS PETERS FINDINGS: AP, oblique and lateral views were obtained. There is no fracture or dislocation. No focal bone destruction is noted. Joint spaces appear intact. IMPRESSION: No acute osseous abnormality MACRO: None Signed by: Doretha Bueno 10/27/2023 10:58 AM Dictation workstation: [id number] [facility] XR Foot - right 3 Viewson No acute osseous abnormality MACRO: None Signed by: Doretha Bueno 10/27/2023 10:58 AM Dictation workstation: [id number] [facility] Interpreted By: Doretha Bueno, STUDY: XR FOOT RIGHT 3+ VIEWS; ; 10/27/2023 9:58 am INDICATION: Signs/Symptoms:medial aspect pain. COMPARISON: None. ACCESSION NUMBER(S): [id number] ORDERING CLINICIAN: JARVIS PETERS FINDINGS: AP, oblique and lateral views were obtained. There is no fracture or dislocation. No focal bone destruction is noted. Joint spaces appear intact. [facility] Doretha Bueno MD - 10/27/2023 Interpreted By: Doretha Bueno, STUDY: XR FOOT RIGHT 3+ VIEWS; ; 10/27/2023 9:58 am INDICATION: Signs/Symptoms:medial aspect pain. COMPARISON: None. ACCESSION NUMBER(S): [id number] ORDERING CLINICIAN: JARVIS PETERS FINDINGS: AP, oblique and lateral views were obtained. There is no fracture or dislocation. No focal bone destruction is noted. Joint spaces appear intact. IMPRESSION: No acute osseous abnormality MACRO: None Signed by: Doretha Bueno 10/27/2023 10:58 AM Dictation workstation: [id number] [facility] Work Phone: Radiology Study observation (narrative) [facility] Work Phone: XR Foot - right 3 ViewsOrder ed By: Doretha Bueno on 10-27-2023 [facility] Work Phone: Absolute lymphocyte countOrd ered By: Prince Villanueva on 04-15-2023 Lymphocytes Auto (Unsp spec) [#/Vol] 1.50 10*3/uL 0.83-4.51 [facility] Basophil percentageOrdered B y: Prince Villanueva on 04-15-2023 Basophils/100 WBC (Bld) 0.5 % 0-1 [facility] Eosinophils/100 WBC (Bld) 1.5 % 0-5 [facility] Neutrophils (Bld) [#/Vol] 5.1 10*3/uL 2.0-7.7 [facility] Neutrophils/100 WBC (Bld) 69.4 % 47-70 [facility] WBC (Bld) [#/Vol] 7.3 10*3/uL 4.4-11.0 [facility] Blood erythrocytes count (nu mber/volume)Ordered By: Prince Villanueva on 04-15-2023 RBC (Bld) [#/Vol] 4.26 10*6/uL 4.6-6.2 [facility] Blood hemoglobin measurement (mass/volume)Ordered By: Prince Villanueva on 04-15-2023 Hemoglobin (Bld) [Mass/Vol] 13.5 g/dL 13.0-16.5 [facility] Blood lymphocytes/100 leukoc ytesOrdered By: Prince Villanueva on 04-15-2023 Lymphocytes/100 WBC (Bld) 20.5 % 19-41 [facility] Blood monocytes/100 leukocyt esOrdered By: Prince Villanueva on 04-15-2023 Monocytes/100 WBC (Bld) 7.8 % 0-10 [facility] Blood platelet mean volumeOr dered By: Prince Villanueva on 04-15-2023 Platelet mean volume (Bld) [Entitic vol] 13.2 fL 6.2-12.0 [facility] Determination of erythrocyte mean corpuscular volume (MCV)Ordered By: Prince Villanueva on 04-15-2023 MCV (RBC) [Entitic vol] 92.5 fL 80-94 [facility] Glucose Glucometer (BldC) [M ass/Vol]Ordered By: Prince Villanueva on 04-15-2023 Glucose [Mass/Vol] 353 mg/dL 74-106 [facility] Comment on above: MANAGEMENT OF PATIEN T CARE PER NURSING PROTOCOL Hematocrit Auto (Bld) [Volum e fraction]Ordered By: Prince Villanueva on 04-15-2023 Hematocrit (Bld) [Volume fraction] 39.4 % 40-54 [facility] Laboratory - Hematology and Cell countsOrdered By: Prince Villanueva on 04-15-2023 Erythrocyte distribution width (RBC) [Entitic vol] 39.8 fL 35.1-43.9 [facility] Erythrocyte distribution width (RBC) [Ratio] 11.8 % 11.6-14.6 [facility] Immature granulocytes/100 WBC (Bld) 0.300 % 0.0-0.9 [facility] Comment on above: IG% - Immature Granu locytes (promyelocytes, myelocytes and metamyelocytes) > 1% indicates that a LEFT SHIFT is Present. MCH (RBC) [Entitic mass] 31.7 pg 27.0-32.0 [facility] Nucleated RBC/100 WBC (Bld) [Ratio] 0 % 0-5 [facility] MCHC Auto (RBC) [Mass/Vol]Or dered By: Prince Villanueva on 04-15-2023 MCHC (RBC) [Mass/Vol] 34.3 g/dL 32-36 [facility] Platelets bldOrdered By: Yasmine Villanueva on 04-15-2023 Platelets (Bld) [#/Vol] 172 10*3/uL 150-450 [facility] Absolute lymphocyte countOrd ered By: Jil Scott on 04-14-2023 Lymphocytes Auto (Unsp spec) [#/Vol] 1.89 10*3/uL 0.83-4.51 [facility] Basophil percentageOrdered B y: Jil Scott on 04-14-2023 Basophils/100 WBC (Bld) 0.5 % 0-1 [facility] Chloride [Moles/Vol] 102 mmol/L 98-107 [facility] Eosinophils/100 WBC (Bld) 0.6 % 0-5 [facility] Glucose [Mass/Vol] 300 mg/dL 74-106 [facility] Comment on above: Glucose result great er than or equal to 200 mg/dLsuggests DIABETES MELLITUS per A.D.A. criteria. Neutrophils (Bld) [#/Vol] 7.2 10*3/uL 2.0-7.7 [facility] Neutrophils/100 WBC (Bld) 73.5 % 47-70 [facility] Potassium [Moles/Vol] 3.7 mmol/L 3.5-5.1 [facility] Sodium [Moles/Vol] 135 mmol/L 136-145 [facility] WBC (Bld) [#/Vol] 9.8 10*3/uL 4.4-11.0 [facility] Blood erythrocytes count (nu mber/volume)Ordered By: Jil Scott on 04-14-2023 RBC (Bld) [#/Vol] 4.74 10*6/uL 4.6-6.2 [facility] Blood hemoglobin measurement (mass/volume)Ordered By: Jil Scott on 04-14-2023 Hemoglobin (Bld) [Mass/Vol] 15.2 g/dL 13.0-16.5 [facility] Blood lymphocytes/100 leukoc ytesOrdered By: Jil Scott on 04-14-2023 Lymphocytes/100 WBC (Bld) 19.3 % 19-41 [facility] Blood monocytes/100 leukocyt esOrdered By: Jil Scott on 04-14-2023 Monocytes/100 WBC (Bld) 5.8 % 0-10 [facility] Blood platelet mean volumeOr dered By: iJl Scott on 04-14-2023 Platelet mean volume (Bld) [Entitic vol] 12.4 fL 6.2-12.0 [facility] Determination of erythrocyte mean corpuscular volume (MCV)Ordered By: Jil Scott on 04-14-2023 MCV (RBC) [Entitic vol] 89.0 fL 80-94 [facility] Gram stain for investigation of transfusion reactionOrdered By: Prince Villanueva on 04-14-2023 Microscopic observation Gram stain Nom (Unsp spec) [facility] Hematocrit Auto (Bld) [Volum e fraction]Ordered By: Jil Scott on 04-14-2023 Hematocrit (Bld) [Volume fraction] 42.2 % 40-54 [facility] Laboratory - Chemistry and C hemistry - challengeOrdered By: Jil Scott on 04-14-2023 CO2 [Moles/Vol] 23.0 mmol/L 21.0-32.0 [facility] Urea nitrogen/Creatinine [Mass ratio] 11.3 mg/mg 10-20 [facility] Laboratory - Hematology and Cell countsOrdered By: Jil Scott on 04-14-2023 Erythrocyte distribution width (RBC) [Entitic vol] 37.4 fL 35.1-43.9 [facility] Erythrocyte distribution width (RBC) [Ratio] 11.6 % 11.6-14.6 [facility] Immature granulocytes/100 WBC (Bld) 0.300 % 0.0-0.9 [facility] Comment on above: IG% - Immature Granu locytes (promyelocytes, myelocytes and metamyelocytes) > 1% indicates that a LEFT SHIFT is Present. MCH (RBC) [Entitic mass] 32.1 pg 27.0-32.0 [facility] Nucleated RBC/100 WBC (Bld) [Ratio] 0 % 0-5 [facility] MCHC Auto (RBC) [Mass/Vol]Or dered By: Jil Scott on 04-14-2023 MCHC (RBC) [Mass/Vol] 36.0 g/dL 32-36 [facility] No Panel InformationOrdered By: Jil Scott on 04-14-2023 Estimated Creatinine Clearance Calc 132.95 ml/min [facility] Estimated GFR (MDRD) Amer 134 mL/min >60 [facility] Comment on above: GFR Calc Estimated GFR (MDRD) Non-Af Amer 111 mL/min >60 [facility] Comment on above: Non- GFR Calc Platelets bldOrdered By: Justina Scott on 04-14-2023 Platelets (Bld) [#/Vol] 203 10*3/uL 150-450 [facility] Serum or plasma calcium festus urement (mass/volume)Ordered By: Jil Scott on 04-14-2023 Calcium [Mass/Vol] 8.9 mg/dL 8.5-10.1 [facility] Serum or plasma creatinine m easurement (mass/volume)Ordered By: Jil Scott on 04-14-2023 Creatinine [Mass/Vol] 0.79 mg/dL 0.70-1.30 [facility] Comment on above: The validity of the calculated GFR & GFRAA in patients over 70 years has not been determined. Clinical correlation is essential. Serum or plasma urea nitroge n measurement (mass/volume)Ordered By: Jil Scott on 04-14-2023 Urea nitrogen [Mass/Vol] 9 mg/dL 7-18 [facility] Thin prep Papanicolaou smear with manual screeningOrdered By: Jil Scott on 04-14-2023 Thin prep Papanicolaou smear with manual screening 10 5-15 [facility] HEMOGLOBIN A1C (POC)on 01-27 HbA1c (Bld) [Mass fraction] 11.0 % Abnormal 4.2 - 5.6 % [facility] TOX SCREEN ROUT URon 023 Amphetamines Confirm (U) [Mass/Vol] Negative Negative [facility] Barbiturates Urine Negative Negative [facility] Benzodiazepines Urine Negative Negative [facility] Cannabinoids, Urine Negative Negative [facility] Cocaine Ql (U) Negative Negative [facility] Ethanol (U) [Mass/Vol] <11 mg/dL [facility] Opiates Screen Ql (U) Negative Negative [facility] oxyCODONE cutoff Screen (U) [Mass/Vol] Negative Negative [facility] Phencyclidine Ql (U) Negative Negative [facility] COLONOSCOPY SCREENINGon 08-10 [facility] GLUCOSE, BLOOD (POC)on 08-30 Glucose [Mass/Vol] 240 mg/dL Abnormal 74 - 99 mg/dL [facility] HEPB S AB IMMUNITYon 022 HBV surface Ab Qn (S) 9.36 mIU/mL Low >=12.0 0 mIU/mL [facility] CBC W Auto Differential pane l (Bld)on 06-04-2022 Abs Immature Gran 0.03 k/uL <0.10 k/uL [facility] Basophils (Bld) [#/Vol] 0.06 10*3/uL <0.11 k/uL [facility] Basophils/100 WBC (Bld) 0.8 % [facility] Differential cell count method Nom (Bld) Auto [facility] Eosinophils (Bld) [#/Vol] 0.11 10*3/uL <0.46 k/uL [facility] Eosinophils/100 WBC (Bld) 1.4 % [facility] Erythrocyte distribution width (RBC) [Ratio] 11.9 % 11.5 - 15.0 % [facility] Hematocrit (Bld) [Volume fraction] 46.7 % 39.0 - 51.0 % [facility] Hemoglobin (Bld) [Mass/Vol] 16.0 g/dL 13.0 - 17.0 g/dL [facility] Immature Gran % 0.4 % [facility] Lymphocytes (Bld) [#/Vol] 3.03 10*3/uL 1.00 - 4.00 k/uL [facility] Lymphocytes/100 WBC (Bld) 39.7 % [facility] MCH (RBC) [Entitic mass] 31.3 pg 26.0 - 34.0 pg [facility] MCHC (RBC) [Mass/Vol] 34.3 g/dL 30.5 - 36.0 g/dL [facility] MCV (RBC) [Entitic vol] 91.2 fL 80.0 - 100.0 fL [facility] Monocytes (Bld) [#/Vol] 0.48 10*3/uL <0.87 k/uL [facility] Monocytes/100 WBC (Bld) 6.3 % [facility] Neutrophils (Bld) [#/Vol] 3.93 10*3/uL 1.45 - 7.50 k/uL [facility] Neutrophils/100 WBC (Bld) 51.4 % [facility] Nucleated RBC (Bld) [#/Vol] <0.01 k/uL [facility] Nucleated RBC/100 WBC (Bld) [Ratio] 0.0 /100 WBC [facility] Platelet mean volume (Bld) [Entitic vol] 13.2 fL High 9.0 - 12.7 fL [facility] Platelets (Bld) [#/Vol] 241 10*3/uL 150 - 400 k/uL [facility] RBC (Bld) [#/Vol] 5.12 10*6/uL 4.20 - 6.0 0 m/uL [facility] WBC (Bld) [#/Vol] 7.64 10*3/uL 3.70 - 11.00 k/uL [facility] MAGNESIUM BLDon 06-04-2022 Magnesium [Mass/Vol] 2.0 mg/dL 1.7 - 2 .3 mg/dL [facility] Urinalysis complete panel (U )on 06-04-2022 Bilirubin Ql (U) Negative Negative [facility] Clarity (Unsp spec) Turbid Abnormal Clear [facility] ([facility] Yellow Yellow [facility] Glucose Test strip (U) [Mass/Vol] 2+ Abnormal Negative [facility] Hemoglobin Ql (U) Negative Negative [facility] Ketones Ql (U) Negative Negative [facility] Leukocyte esterase Test strip Ql (U) Negative Negative [facility] Nitrite Ql (U) Negative Negative [facility] pH (U) 5.0 [pH] 5.0 - 8.0 [facility] Protein (U) [Mass/Vol] 1+ Abnormal Negative [facility] RBC LM.HPF (Urine sed) [#/Area] 0-3 /HPF 0-3 /HPF [facility] Specific gravity (U) [Rel density] 1.029 1.005 - 1.030 [facility] Urobilinogen Ql (U) Negative Negative [facility] WBC LM.HPF (Urine sed) [#/Area] 0-5 /HPF 0-5 /HPF [facility] VITAMIN B12 BLOODon 06-04-20 Cobalamin (Vitamin B12) [Mass/Vol] 418 pg/mL 232 - 1,245 pg/mL [facility] HEMOGLOBIN A1C (POC)on 03-04 HbA1c (Bld) [Mass fraction] 10.5 % Abnormal 4.2 - 5.6 % [facility] XR Chest PA and Lateralon IMPRESSION: No acute radiographic abnormality. Drill Setup Operator: [facility] Transcribe Date/Time: Oct 15 2021 8:39A Dictated by : DAT FERNANDES MD This examination was interpreted and the report reviewed and electronically signed by: DAT FERNANDES MD on Oct 15 2021 8:39AM [facility] DIVISION OF RADIOLOGY * * [...] soft tissues: Unremarkable. DIVISION OF RADIOLOGY Provider, [facility] Lorenzo neely [place] - 10/15/2021 * * *Final Report* * [...] Unremarkable. IMPRESSION IMPRESSION: No acute radiographic abnormality. Drill Setup Operator: GORGE Transcribe Date/Time: Oct 15 2021 8:39A Dictated by : DAT FERNANDES MD This examination was interpreted and the report reviewed and electronically signed by: DAT FERNANDES MD on Oct 15 2021 8:39AM EST [facility] Radiology Study observation (narrative) [facility] XR Chest PA and LateralOrder ed By: [facility] Provider on 10-15-2021 [facility] XR Knee - bilateral 4 Viewso n 10-20-2020 IMPRESSION: No acute osseous findings. Bilateral mild patellofemoral degenerative changes. Minimal bilateral tibiofemoral degenerative changes. No significant change. Drill Setup Operator: [facility] Transcribe Date/Time: Oct 20 2020 11:00A Dictated by : GIULIA LICEA MD This examination was interpreted and the report reviewed and electronically signed by: GIULIA LICEA MD on Oct 20 2020 11:03AM [facility] DIVISION OF RADIOLOGY * * [...] knee effusions. DIVISION OF RADIOLOGY Provider, Estella [facility] - 10/20/2020 * * *Final Report* [...] bilateral tibiofemoral degenerative changes. No significant change. [facility]ill [facility] Transcribe Date/Time: Oct 20 2020 11:00A Dictated by : GIULIA LICEA MD This examination was interpreted and the report reviewed and electronically signed by: GIULIA LICEA MD on Oct 20 2020 11:03AM EST [facility] Radiology Study observation (narrative) [facility] XR Knee - bilateral 4 ViewsO rdered By: [facility]cf Provider on 10-20-2020 [facility] CHEST 1 VIEWon 10-20-2018 CHEST 1 VIEW [...] silhouette. IMPRESSION:1. No acute radiographic abnormality. Normal [facility] CPKon 10-20-2018 CPK 136 U/L Normal 39-308 [facility] Comment on above: Performed By: #### L HEPA ####[place] [address] Comprehensive Panelon 2018 Albumin mass conc 4.1 g/dL Normal 3.4-5.0 [facility] Comment on above: Performed By: #### L HEPA ####[place] [address] ALP enzyme act/vol 147 U/L High 46-116 [facility] Comment on above: Performed By: #### L HEPA ####[place] [address] ALT-SGPT Blood 37 U/L Normal 14-63 [facility] Comment on above: Performed By: #### L HEPA ####[place] [address] Anion gap 3 molar conc 16 mmol/L Normal 8-20 [facility] Comment on above: Performed By: #### L HEPA ####[place] [address] AST-SGOT Blood 35 U/L Normal 15-37 [facility] Comment on above: Performed By: #### L HEPA ####[place] [address] Bilirubin Ql (U) 0.3 mg/dL Normal 0.2-1.0 [facility] Comment on above: Performed By: #### L HEPA ####[place] [address] Calcium mass conc 9.3 mg/dL Normal 8.5-10.1 [facility] Comment on above: Performed By: #### L HEPA ####[place] [address] Chloride molar conc 100 mmol/L Normal 98-107 [facility] Comment on above: Performed By: #### L HEPA ####[facility] [place], [place] [address] CO2 molar conc 24 mmol/L Normal 21-32 [facility] Comment on above: Performed By: #### L HEPA ####[facility] [place], [place] [address] Creatinine mass conc 0.80 mg/dL Normal 0.67-1.17 [facility] Comment on above: Performed By: #### L HEPA ####[facility] [place], [place] [address] Glucose mass conc 219 mg/dL High 70-99 [facility] Comment on above: Performed By: #### L HEPA ####[address] [address] Potassium molar conc 3.6 mmol/L Normal 3.5-5.1 [facility] Comment on above: Performed By: #### L HEPA ####[address] [address] Protein mass conc 7.1 g/dL Normal 6.4-8.2 [facility] Comment on above: Performed By: #### L HEPA ####[address] [address] Sodium molar conc 136 mmol/L Normal 136-145 [facility] Comment on above: Performed By: #### L HEPA ####[address] [address] Urea nitrogen mass conc (Bld) 15 mg/dL Normal 7-25 [facility] Comment on above: Performed By: #### L HEPA ####[address] [address] Urea nitrogen/Creatinine mass ratio 19 mg/mg Normal 10-20 [facility] Comment on above: Performed By: #### L HEPA ####[address] [address] Glucose Meteron 10-20-2018 Glucose mass conc 239 mg/dL High 70-99 [facility] Comment on above: Result Comment: KENNEY Gan [place] [address] Performed By: #### L GLMT ####[place] [address] Hemogram/Diffon 10-20-2018 Abs. Baso 0.05 thou/cmm Normal 0.00-0.08 [facility] Comment on above: Performed By: #### L CBCD ####[place] [address] Abs. [place] 0.62 thou/cmm Normal 0.20-1.00 [facility] Comment on above: Performed By: #### L CBCD ####[place] [address] Abs. Neut (ANC) 5.10 thou/cmm Normal 3.00-5.67 [facility] Comment on above: Performed By: #### L CBCD ####[place] [address] Basophils/100 WBC Auto (Bld) 0.6 % Normal [facility] Comment on above: Performed By: #### L CBCD ####[place] [address] Eosinophils Auto #/vol (Bld) 0.15 thou/cmm Normal 0.00-0.41 [facility] Comment on above: Performed By: #### L CBCD ####[place] [address] Eosinophils/100 WBC Auto (Bld) 1.7 % Normal [facility] Comment on above: Performed By: #### L CBCD ####[place] [address] Erythrocyte distribution width Auto Ratio (RBC) 12.0 % Normal 11.5-15.9 [facility] Comment on above: Performed By: #### L CBCD ####[place] [address] Hematocrit Auto Volume Fraction (Bld) 41.1 % Low 42.0-52.0 [facility] Comment on above: Performed By: #### L CBCD ####[address] [address] Hemoglobin mass conc (Bld) 14.4 g/dL Normal 14.0-18.0 [facility] Comment on above: Performed By: #### L CBCD ####[address] [address] Lymphocytes Auto #/vol (Bld) 3.08 thou/cmm Normal 1.50-3.65 [facility] Comment on above: Performed By: #### L CBCD ####[address] [address] Lymphocytes/100 WBC Auto (Bld) 34.2 % Normal [facility] Comment on above: Performed By: #### L CBCD ####[place] [address] MCH Auto Entitic mass (RBC) 31.3 pg High 27.0-31.0 [facility] Comment on above: Performed By: #### L CBCD ####[address] [address] MCHC Auto mass conc (RBC) 35.0 % Normal 32.0-36.0 [facility] Comment on above: Performed By: #### L CBCD ####[address] [address] MCV Auto Entitic volume (RBC) 89.3 fL Normal 80.0-94.0 [facility] Comment on above: Performed By: #### L CBCD ####[address] [address] Monocytes/100 WBC Auto (Bld) 6.9 % Normal [facility] Comment on above: Performed By: #### L CBCD ####[address] [address] Platelet mean volume Auto Entitic volume (Bld) 12.0 fL High 7.1-10.5 [facility] Comment on above: Performed By: #### L CBCD ####[place] [id number] Platelets Auto #/vol (Bld) 250 thou/cmm Normal 150-400 [facility] Comment on above: Performed By: #### L CBCD ####[place] [address] RBC Auto #/vol (Bld) 4.60 mil/cmm Normal 4.60-6.20 [facility] Comment on above: Performed By: #### L CBCD ####[place] [address] Seg Neutrophil 56.6 % Normal [facility] Comment on above: Performed By: #### L CBCD ####[place] [address] WBC Auto #/vol (Bld) 9.0 thou/cmm Normal 4.8-10.8 [facility] Comment on above: Performed By: #### L CBCD ####[place] [address] MDRD eGFRon 10-20-2018 GFR/1.73 sq M predicted among non-blacks MDRD vol rate/area (S/P/Bld) mL/min/{1.73_m2} Normal >60mL/min/1 .73m2 [facility] Comment on above: Result Comment: If t he patient is , multiply the result by 1.210. Performed By: #### L HEPA ####[place] [address] Macroscopic Urinalysison Appearance Nom (U) CLEAR Normal [facility] Comment on above: Performed By: #### L HEPA ####[place] [address] Bilirubin Urine Negative Normal Negative [facility] Comment on above: Performed By: #### L HEPA ####[place] [address] Color Nom (U) YELLOW Normal [facility] Comment on above: Performed By: #### L HEPA ####[place] [address] Glucose Ql (U) Negative Normal Negative [facility] Comment on above: Performed By: #### L HEPA ####[place] [address] Hemoglobin,Urine Negative Normal Negative [facility] Comment on above: Performed By: #### L HEPA ####[place] [address] Ketone Urine Negative Normal Negative [facility] Comment on above: Performed By: #### L HEPA ####[place] [address] Leukocytes Esterase Negative Normal Negative [facility] Comment on above: Performed By: #### L HEPA ####[place] [address] Nitrites Urine Negative Normal Negative [facility] Comment on above: Performed By: #### L HEPA ####[place] [address] pH Test strip (U) 6.0 [pH] Normal 5.0-8.0 [facility] Comment on above: Performed By: #### L HEPA ####[place] [address] Protein Urine Negative Normal Negative [facility] Comment on above: Performed By: #### L HEPA ####[place] [address] Specific [place], Ur 1.020 Normal 1.005-1.030 [facility] Comment on above: Performed By: #### L HEPA ####[place] [address] Urobilinogen,Ur 0.2 EU/dL Normal 0.0-1.0 [facility] Comment on above: Performed By: #### L HEPA ####[place] [address] Troponin Ion 10-20-2018 Troponin I.cardiac mass conc ng/mL Normal <=0.07 [facility] Comment on above: Performed By: #### L HEPA ####[place] [address] Troponin I.cardiac mass conc ng/mL Normal <=0.07 [facility] Comment on above: Performed By: #### L HEPA ####[facility] [place] [address] Free Thyroxineon 09-04-2018 T4 free mass conc 0.69 ng/dL Normal 0.44-1.61 [facility] Comment on above: Performed By: #### L FT4 ####[facility] [place] [address] TSHon 09-04-2018 Thyrotropin Qn 1.36 uIU/mL Normal 0.34-4.82 [facility] Comment on above: Performed By: #### L TSH ####[place] [address] ANKLE 3V AP/LAT/OBL RIGHTon 07-14-2018 Protein mass [...] swelling. IMPRESSION: No acute osseous abnormality. Normal [facility] Hemoglobin A1Con 02-21-2018 Glucose mass conc 137 mg/dL Normal [facility] Comment on above: Performed By: #### L A1C ####[place] [address] Hemoglobin A1c/Hemoglobin.total mass fraction (Bld) 6.4 % High 4.5-6.2 [facility] Comment on above: Performed By: #### L A1C ####[place] [address] Free Thyroxineon 02-20-2018 T4 free mass conc 0.75 ng/dL Normal 0.44-1.61 [facility] Comment on above: Performed By: #### L FT4 ####[place] [address] Hepatic Panelon 02-20-2018 Albumin mass conc 4.0 g/dL Normal 3.4-5.0 [facility] Comment on above: Performed By: #### L HEPA ####[place] [address] Albumin/Globulin mass ratio 1.2 {ratio} Normal 0.9-2.4 [facility] Comment on above: Performed By: #### L HEPA ####[address] [address] ALP enzyme act/vol 108 U/L Normal 46-116 [facility] Comment on above: Performed By: #### L HEPA ####[address] [address] ALT-SGPT Blood 22 U/L Normal 14-63 [facility] Comment on above: Performed By: #### L HEPA ####[place] [address] AST-SGOT Blood 20 U/L Normal 15-37 [facility] Comment on above: Performed By: #### L HEPA ####[place] [address] Bilirubin Ql (U) 0.6 mg/dL Normal 0.2-1.0 [facility] Comment on above: Performed By: #### L HEPA ####[place] [address] Bilirubin.direct mass conc mg/dL Normal 0.00-0.20 [facility] Comment on above: Performed By: #### L HEPA ####[place] [address] Bilirubin.indirect mass conc (Body fld) 0.5 mg/dL Normal 0.0-0.7 [facility] Comment on above: Performed By: #### L HEPA ####[place] [address] Protein mass conc 7.4 g/dL Normal 6.4-8.2 [facility] Comment on above: Performed By: #### L HEPA ####[place] [address] Lipid Profileon 02-20-2018 Cholesterol in HDL mass conc 30 mg/dL Normal >40 [facility] Comment on above: Performed By: #### L LIPD ####[facility] [place], [place] [address] Cholesterol in LDL mass conc 168 mg/dL High 0-150 [facility] Comment on above: Performed By: #### L LIPD ####[facility] [place], [place] [address] Cholesterol mass conc 230 mg/dL High 0-199 [facility] Comment on above: Performed By: #### L LIPD ####[address] [address] Cholesterol.total/Chol esterol in HDL mass ratio 7.7 {ratio} High 2.1-7.3 [facility] Comment on above: Performed By: #### L LIPD ####[place] [address] Risk Factor 7.7 Normal [facility] Comment on above: Result Comment: Card iac [...] >23.4 >11.0 Performed By: #### L LIPD ####[place] [address] Triglyceride Blood 158 mg/dL High 0-149 [facility] Comment on above: Performed By: #### L LIPD ####[place] [address] TSHon 02-20-2018 Thyrotropin Qn 1.23 uIU/mL Normal 0.34-4.82 [facility] Comment on above: Performed By: #### L TSH ####[address] [address] ABG, Bedside (Resp Dept)on 0 10-10-2017 Base Excess -5.0 mmol/L Low -3.0-3.0 [facility] Comment on above: Performed By: #### C /UR ####[address] [address] Bicarbonate (HCO3) 19.2 mmol/L Low 21.0-25.0 [facility] Comment on above: Performed By: #### C /UR ####[address] [address] CO2 20.0 mmol/L Low 23.0-27.0 [facility] Comment on above: Performed By: #### C /UR ####[address] [address] CO2 29.1 mm[Hg] Low 35.0-45.0 [facility] Comment on above: Performed By: #### C /UR ####[address] [address] O2 saturation 94.0 % Low 95.0-100.0 [facility] Comment on above: Performed By: #### C /UR ####[address] [address] Oxygen in arterial blood 66.0 mm[Hg] Low 80.0-100.0 [facility] Comment on above: Performed By: #### C /UR ####[address] [address] pH of blood 7.428 [pH] Normal 7.350-7.450 [facility] Comment on above: Performed By: #### C /UR ####[address] [address] Specimen Type arterial Normal [facility] Comment on above: Performed By: #### C /UR ####[address] [place] [address] CR Chest PA/LATon 10-09-2017 CR Chest PA/LAT Patient Name: BIANCA HERRERA Diagnostic Radiology Exam Date/Time 10/09/2017 21:34:42 EST Exam CR Chest PA/LAT Ordering Physician MD ORTIZ NISHIT Accession Number [id number] CPT4 Codes 85589 () Reason For Exam cough , fever, [...] R Transcribed Date and Time: 10/09/2017 9:35 Normal [facility] CULTURE BLOODon 10-09-2017 CULTURE BLOOD Specimen Source Comment:[facility] Patient name: BIANCA DELAROSA M.R.N.: [id number] : 1975 Age: 41 Sex: M Ord. Physician: NELLY ORTIZ Location: [address] [place] [address] Copy to: NELLY ORTIZ DISCHARGED: 10/09/17 Adm. Date: 10/09/17 MICROBIOLOGYORDER#: [id number] COLLECTED: 10/09/17 20:49SOURCE: Blood (Right -antecub) RECEIVED: 10/09/17 21:09 OE C O M M E N T S Specim en Source Comment:BloodCULTURE BLOOD FINAL 10/15/17 11:No growth at 5 days. [facility] Comment on above: Performed By: #### C /UR ####[address] [address] CULTURE BLOOD (Two)on 2017 CULTURE BLOOD (Two) Specimen Source Comment:Blood [facility] Patient name: BIANCA DELAROSA Dany MMickyR.N.: [id number] : 1975 Age: 41 Sex: M Ord. Physician: NELLY ORTIZ Location: [facility] Copy to: MIRTA NELLY DISCHARGED: 10/09/17 Adm. Date: 10/09/17 MICROBIOLOGYORDER#: [id number] COLLECTED: 10/09/17 20:49SOURCE: Blood (Right -antecub) RECEIVED: 10/09/17 21:07 OE C O M M E N T S Specim en Source Comment:BloodCULTURE BLOOD (Two) FINAL 10/15/17 11:No growth at 5 days. [facility] Comment on above: Performed By: #### C /UR ####[address] [address] CULTURE URINEon 10-09-2017 CULTURE URINE Specimen Source Comment:Urine, clean catch [facility] Patient name: BIANCA DELAROSA Dany M.R.N.: [id number] : 1975 Age: 41 Sex: M Ord. Physician: NELLY ORTIZ Location: 1E-3E Copy to: MIRTA NELLY DISCHARGED: 10/09/17 Adm. Date: 10/09/17 MICROBIOLOGYORDER#: [id number] COLLECTED: 10/09/17 21:46SOURCE: Urine RECEIVED: 10/09/17 21:46 OE C O M M E N T S Specim en Source Comment:Urine, clean catchCULTURE URINE FINAL 10/11/17 07:55010/11/17No growth (<1,000 CFU/ml). Normal [facility] Comment on above: Performed By: #### C /UR ####[address] [address] Comp Metabolic Panelon 10-09 Alanine aminotransferase (ALT) 29 U/L Normal 12-78 [facility] Comment on above: Performed By: #### H EMDF, CMP3, LACT3 ####[facility] [place] [address] Albumin 3.9 g/dL Normal 3.4-5.0 [facility] Comment on above: Performed By: #### H EMDF, CMP3, LACT3 ####[facility] [place] [address] Alkaline phosphatase (ALP) 97 U/L Normal 45-117 [facility] Comment on above: Performed By: #### H EMDF, CMP3, LACT3 ####[facility] [place] [address] Anion gap 13 mmol/L Normal [facility] Comment on above: Performed By: #### H EMDF, CMP3, LACT3 ####[place] [address] [place] [address] Aspartate aminotransferase (AST) 25 U/L Normal 15-37 [facility] Comment on above: Performed By: #### H EMDF, CMP3, LACT3 ####[facility] [address] [place] [address] Bilirubin (total) 0.5 mg/dL Normal 0.2-1.0 [facility] Comment on above: Performed By: #### H EMDF, CMP3, LACT3 ####[facility] [address] [place] [address] Calcium 8.6 mg/dL Normal 8.2-10.1 [facility] Comment on above: Performed By: #### H EMDF, CMP3, LACT3 ####[place] [address] [place] [address] Chloride 99 mmol/L Normal 98-109 [facility] Comment on above: Performed By: #### H EMDF, CMP3, LACT3 ####[place] [address] [place] [address] CO2 22 mmol/L Normal 21-32 [facility] Comment on above: Performed By: #### H EMDF, CMP3, LACT3 ####[facility] Center[facility]bt[facility] [place] [address] Creatinine 1.25 mg/dL Normal 0.55-1.40 [facility] Comment on above: Performed By: #### H EMDF, CMP3, LACT3 ####[facility] CenterMmkgry[address] [place] [address] eGFR (black) mL/min/{1.73_m2} Normal >60 [facility] Comment on above: Performed By: #### H EMDMachelle, CMP3, LACT3 ####[place] [id number] [place] [address] eGFR (non-black) mL/min/{1.73_m2} Normal >60 [facility] Comment on above: Result Comment: Sour ce- MDRD equation with creatinine calibration to IDMS(NKDEP)eGFR not recommended for drug dose adjustment Performed By: #### H EMDMachelle, CMP3, LACT3 ####[facility] CenterStirsf[facility] [place] [address] Glucose mass conc 160 mg/dL High 70-100 [facility] Comment on above: Result Comment: . Performed By: #### H EMDF, CMP3, LACT3 ####[facility] CenterFodeoc[address] [place] [address] Potassium molar conc 3.8 mmol/L Normal 3.5-5.1 [facility] Comment on above: Performed By: #### H EMDF, CMP3, LACT3 ####[facility] [facility] [place] [address] Protein 7.1 g/dL Normal 6.4-8.2 [facility] Comment on above: Performed By: #### H EMDF, CMP3, LACT3 ####[facility]vv[facility]2 [place] [address] Sodium 134 mmol/L Low 135-145 [facility] Comment on above: Performed By: #### H EMDF, CMP3, LACT3 ####[address] [address] Urea nitrogen 13 mg/dL Normal 7-25 [facility] Comment on above: Performed By: #### H EMDF, CMP3, LACT3 ####[address] [place] [address] Hemogram w/ Autodiffon 10-09 Abs Baso Cnt 0.0 10*3/uL Normal 0.0-0.2 [facility] Comment on above: Performed By: #### H EMDF, CMP3, LACT3 ####[address] [address] Basophils/100 WBC Auto (Bld) 0.5 % Normal [facility] Comment on above: Performed By: #### H EMDF, CMP3, LACT3 ####[address] [address] Eosinophils 0.1 10*3/uL Normal 0.0-0.5 [facility] Comment on above: Performed By: #### H EMDF, CMP3, LACT3 ####[address] [address] Eosinophils/100 leukocytes 0.7 % Normal [facility] Comment on above: Performed By: #### H EMDF, CMP3, LACT3 ####[address] [address] Erythrocyte distribution width Auto Ratio (RBC) 11.5 % Normal 11.5-14.5 [facility] Comment on above: Performed By: #### H EMDF, CMP3, LACT3 ####[address] [address] Erythrocytes (RBC) 4.78 10*6/uL Normal 4.40-5.90 [facility] Comment on above: Performed By: #### H EMDF, CMP3, LACT3 ####[address] [place] [address] Granulocytes/100 WBC (Bld) 84.3 % Normal [facility] Comment on above: Performed By: #### H EMDF, CMP3, LACT3 ####[facility] CenterXqvioz3847 [place] [address] Hematocrit (HCT) 43.6 % Normal 40.0-52.0 [facility] Comment on above: Performed By: #### H EMDF, CMP3, LACT3 ####[facility] CenterTpvpew9933 [place] [address] Hemoglobin mass conc (Bld) 14.7 g/dL Normal 13.0-18.0 [facility] Comment on above: Performed By: #### H EMDF, CMP3, LACT3 ####[place] [id number] [place] [address] Lymphocytes 0.8 10*3/uL Low 1.0-4.3 [facility] Comment on above: Performed By: #### H EMDF, CMP3, LACT3 ####[address] [place] [address] Lymphocytes/100 leukocytes 8.2 % Normal [facility] Comment on above: Performed By: #### H EMDF, CMP3, LACT3 ####[address] [address] MCH 30.8 pg Normal 26.0-34.0 [facility] Comment on above: Performed By: #### H EMDF, CMP3, LACT3 ####[place] [id number] [place] [address] MCHC mass conc (RBC) 33.8 % Normal 32.0-36.0 [facility] Comment on above: Performed By: #### H EMDF, CMP3, LACT3 ####[address] [address] MCV 91.2 fL Normal 80.0-98.0 [facility] Comment on above: Performed By: #### H EMDF, CMP3, LACT3 ####[id number] [place] [address] Monocytes 0.6 10*3/uL Normal 0.0-0.8 [facility] Comment on above: Performed By: #### H EMDF, CMP3, LACT3 ####[address] [address] Monocytes/100 leukocytes 6.3 % Normal [facility] Comment on above: Performed By: #### H EMDF, CMP3, LACT3 ####[facility] [place] [address] Neutrophils 8.2 10*3/uL High 1.8-7.0 [facility] Comment on above: Performed By: #### H EMDF, CMP3, LACT3 ####[facility] HollinsArvutk[address] [place] [address] Platelet mean volume (PMV) 10.4 fL Normal 7.4-10.4 [facility] Comment on above: Performed By: #### H EMDF, CMP3, LACT3 ####[address] [place] [address] Platelets 205 10*3/uL Normal 140-440 [facility] Comment on above: Performed By: #### H EMDF, CMP3, LACT3 ####[place] [address] [place] [address] WBC (Leukocytes) 9.7 10*3/uL Normal 3.6-10.7 [facility] Comment on above: Performed By: #### H EMDF, CMP3, LACT3 ####[address] [place] [address] Lactic Acidon 10-09-2017 Lactate 1.8 mmol/L Normal 0.4-2.0 [facility] Comment on above: Performed By: #### H EMDF, CMP3, LACT3 ####[place] L[address]fy[address] [place] [address] Protimeon 10-09-2017 aPTT 30.6 s High 20.0-30.5 [facility] Comment on above: Result Comment: NOTE : The therapeutic time for Heparin anticoagulation,based on Xa activity inhibition, is an APTT of 46-80seconds. Performed By: #### P T/AP ####[address] [place] [address] INR Coag RelTime (PPP) 1.03 {INR} Normal 0.90-1.10 [facility] Comment on above: Result Comment: Vahe [...] preventMyocardial Infarction Performed By: #### P T/AP ####[address] [id number] [place] [address] Prothrombin time (PT) Coag time (PPP) 10.8 s Normal 9.0-12.0 [facility] Comment on above: Result Comment: . Performed By: #### P T/AP ####[address] [place] [address] Rapid Flu Aon 10-09-2017 Rapid Influenza A Not Detected Normal Not Detected [facility] Comment on above: Performed By: #### R PFAB ####[address] [place] [address] Rapid Influenza B Not Detected Normal Not Detected [facility] Comment on above: Performed By: #### R PFAB ####[address] [place] [address] Urinalysis,Macroon 8 Bilirubin (direct) Negative Normal Negative [facility] Comment on above: Performed By: #### U AMAC, UAMIC ####[id number] [place] [address] Ketone,Urine Negative Normal Negative [facility] Comment on above: Performed By: #### U AMAC, UAMIC ####[id number] [place] [address] Occult Blood,Ur Negative Normal Negative [facility] Comment on above: Performed By: #### U AMAC, UAMIC ####[facility] CenterZupake5958 [place] [address] Specific [place],Urine 1.015 Normal 1.005-1.030 [facility] Comment on above: Performed By: #### U AMAC, UAMIC ####[facility] CenterYrihpn2095 [place] [address] Total Protein,Urine Trace (15) Normal Negative [facility] Comment on above: Performed By: #### U AMAC, UAMIC ####[facility] CenterOvrhwr1231 [place] [address] Urine, appearance Sl. Cloudy Normal Clear [facility] Comment on above: Performed By: #### U AMAC, UAMIC ####[place] [address] [place] [address] Urine, color Yellow Normal Lt. Yellow [facility] [place] [facility] Comment on above: Performed By: #### U AMAC, UAMIC ####[place] [address] [place] [address] Urine, glucose presence NEG (Normal) Normal Negative [facility] Comment on above: Performed By: #### U AMAC, UAMIC ####[place] [address] [place] [address] Urine, nitrite presence Negative Normal Negative [facility] Comment on above: Performed By: #### U AMAC, UAMIC ####[place] [address] [place] [address] Urine, pH 8.0 [pH] Normal 5.0-8.0 [facility] Comment on above: Performed By: #### U AMAC, UAMIC ####[place] [address] [place] [address] Urine, urobilinogen 1.0 mg/dL Normal 0-1 [facility] Comment on above: Performed By: #### U AMAC, UAMIC ####[place] [address] [place] [address] WBC (Leukocytes) Trace Normal Negative [facility] Comment on above: Performed By: #### U AMAC, UAMIC ####[place] [address] [place] [address] Urinalysis,Microscopicon Urine, bacteria in sediment Moderate (6-50) Normal Negative [facility] Comment on above: Performed By: #### U AMAC, UAMIC ####[place] [address] [place] [address] Urine, epithelial cells in sediment 0-2 Normal 3-5 [facility] [place] [facility] Comment on above: Performed By: #### U AMAC, UAMIC ####[place] [address] [place] [address] Urine, erythrocytes in sediment by area Negative Normal 0-2 [facility] Comment on above: Performed By: #### U AMAC, UAMIC ####[place] [address] [place] [address] Urine, leukocytes in sedmiment 0-2 Normal 0-5 [facility] Comment on above: Performed By: #### U AMAC, UAMIC ####[facility] [place] [address] CULTURE URINEon 05-03-2017 CULTURE URINE Specimen Source Comment:Urine, clean catch [facility] Patient name: BIANCA DELAROSA MMickyR.N.: [id number] : 1975 Age: 41 Sex: M Ord. Physician: ALEJANDRO CALDERON Location: [address] [place] [address] Copy to: ALEJANDRO CALDERON DISCHARGED: 05/03/17 Adm. Date: 05/03/17 MICROBIOLOGYORDER#: [id number] COLLECTED: 05/03/17 14:19SOURCE: Urine RECEIVED: 05/03/17 14:23 OE C O M M E N T S Specim en Source Comment:Urine, clean catchCULTURE URINE FINAL 05/04/17 17:No growth (<1,000 CFU/ml). Normal [facility] Comment on above: Performed By: #### C /UR ####[address] [address] Urinalysis,Macroon 7 Bilirubin (direct) Negative Normal Negative [facility] Comment on above: Performed By: #### U AMAC ####[id number] [place] [address] Ketone,Urine Negative Normal Negative [facility] Comment on above: Performed By: #### U AMAC ####[id number] [place] [address] Occult Blood,Ur Negative Normal Negative [facility] Comment on above: Performed By: #### U AMAC ####[address] [address] Specific [place],Urine 1.010 Normal 1.005-1.030 [facility] Comment on above: Performed By: #### U AMAC ####[place] T[address] [place] [address] Total Protein,Urine Negative Normal Negative [facility] Comment on above: Performed By: #### U AMAC ####[place] [address] [place] [address] Urine, appearance Clear Normal Clear [facility] Comment on above: Performed By: #### U AMAC ####[place] [address] [place] [address] Urine, color Yellow Normal Lt. Yellow [facility] Comment on above: Performed By: #### U AMAC ####[place] [address] [place] [address] Urine, glucose presence NEG (Normal) Normal Negative [facility] Comment on above: Performed By: #### U AMAC ####[place] [address] [place] [address] Urine, nitrite presence Negative Normal Negative [facility] Comment on above: Performed By: #### U AMAC ####[place] [address] [place] [address] Urine, pH 8.0 [pH] Normal 5.0-8.0 [facility] Comment on above: Performed By: #### U AMAC ####[place] [address] [place] [address] Urine, urobilinogen Normal (0.2) Normal 0-1 [facility] Comment on above: Performed By: #### U AMAC ####[place] [address] [place] [address] WBC (Leukocytes) Negative Normal Negative [facility] Comment on above: Performed By: #### U AMAC ####[place] [address] [place] [address] Vital Signs Date Time Vital Sign Value Performing Clinician Facility 04-08-2025 13:35-0400 Body height 187.[address] Humberto Jackson MD Work Phone: [facility] 04-08-2025 13:35-0400 Body mass index (BMI) [Ratio] 33.7 kg/m2 Dr. Humberto Jackson MD Work Phone: 6(613)421-669910 [place] [address] 04-08-2025 13:35-0400 Body temperature 97.4 [degF] Dr. Humberto Jackson MD Work Phone: 9(786)309-973210 [place] [address] 04-08-2025 13:35-0400 Body weight 119.[address] Humberto aJckson MD Work Phone: 4(367)444-631710 [place] [address] 04-08-2025 13:35-0400 Diastolic blood pressure 87 mm[Hg] Dr. Humberto Jackson MD Work Phone: 0(608)087-683610 [place] [address] 04-08-2025 13:35-0400 Heart rate 93 /min Dr. Humberto Jackson MD Work Phone: 4(897)607-206610 [place] [address] 04-08-2025 13:35-0400 Respiratory rate 16 /min Dr. Humberto Jackson MD Work Phone: 5(967)579-587610 [place] [address] 04-08-2025 13:35-0400 SaO2% (BldA) [Mass fraction] 98 % Dr. Humberto Jackson MD Work Phone: 8(255)355-888310 [place] [address] 04-08-2025 13:35-0400 Systolic blood pressure 134 mm[Hg] Dr. Humberto Jackson MD Work Phone: 8(322)561-760910 [place] [address] 04-07-2025 13:53-0400 Body height 187.[address] Humberto Jackson MD Work Phone: 7(322)273-409910 [place] [address] 04-07-2025 13:53-0400 Body mass index (BMI) [Ratio] 33.5 kg/m2 Dr. Humberto Jackson MD Work Phone: 6(155)930-283910 [place] [address] 04-07-2025 13:53-0400 Body weight 118.[address] Humberto Jackson MD Work Phone: 9(560)909-623410 [place] [address] 04-07-2025 13:53-0400 Diastolic blood pressure 79 mm[Hg] Dr. Humberto Jackson MD Work Phone: 7(246)552-331310 [place] [address] 04-07-2025 13:53-0400 Heart rate 82 /min Dr. Humberto Jackson MD Work Phone: [facility] 04-07-2025 13:53-0400 Respiratory rate 17 /min Dr. Humberto Jackson MD Work Phone: [facility] 04-07-2025 13:53-0400 SaO2% (BldA) [Mass fraction] 100 % Dr. Humberto Jackson MD Work Phone: [facility] 04-07-2025 13:53-0400 Systolic blood pressure 121 mm[Hg] Dr. Humberto Jackson MD Work Phone: [facility] 04-04-2025 09:20-0400 Diastolic blood pressure 82 mm[Hg] Humberto Jackson MD Work Phone: [facility] 04-04-2025 09:20-0400 Systolic blood pressure 118 mm[Hg] Humbetro Jackson MD Work Phone: [facility] 04-04-2025 08:38-0400 Body mass index (BMI) [Ratio] 33.05 kg/m2 Humberto Jackson MD Work Phone: [facility] 04-04-2025 08:38-0400 Body weight 116.76 kg Humberto Jackson MD Work Phone: [facility] 04-04-2025 08:38-0400 Heart rate 84 /min Humberto Jackson MD Work Phone: [facility] 04-04-2025 08:38-0400 Respiratory rate 16 /min Humberto Jackson MD Work Phone: [facility] 03-27-2025 15:32-0400 Body height 187.[address] Humberto Jackson MD Work Phone: [facility] 03-27-2025 15:31-0400 Body mass index (BMI) [Ratio] 33.6 kg/m2 Dr. Humberto Jackson MD Work Phone: [facility] 03-27-2025 15:31-0400 Body temperature 97.6 [degF] Dr. Humberto Jackson MD Work Phone: 0(242)630-527374 [address] 03-27-2025 15:31-0400 Body weight 118.[address] Humberto Jackson MD Work Phone: 6(981)363-713110 [place] [address] 03-27-2025 15:31-0400 Diastolic blood pressure 86 mm[Hg] Dr. Humberto Jackson MD Work Phone: 6(384)900-675510 [place] [address] 03-27-2025 15:31-0400 Heart rate 91 /min Dr. Humberto Jackson MD Work Phone: 0(773)425-762210 [place] [address] 03-27-2025 15:31-0400 Respiratory rate 16 /min Dr. Humberto Jackson MD Work Phone: 7(406)349-737410 [place] [address] 03-27-2025 15:31-0400 SaO2% (BldA) [Mass fraction] 98 % Dr. Humberto Jackson MD Work Phone: 6(554)998-369410 [place] [address] 03-27-2025 15:31-0400 Systolic blood pressure 125 mm[Hg] Dr. Humberto Jackson MD Work Phone: 3(942)961-411310 [place] [address] 03-21-2025 13:16-0400 Body temperature 97.1 [degF] Dr. Humberto Jackson MD Work Phone: 3(710)092-563810 [place] [address] 03-21-2025 13:16-0400 Diastolic blood pressure 84 mm[Hg] Dr. Humberto Jackson MD Work Phone: 5(390)123-985510 [place] [address] 03-21-2025 13:16-0400 Heart rate 100 /min Dr. Humberto Jackson MD Work Phone: 6(416)211-336810 [place] [address] 03-21-2025 13:16-0400 Respiratory rate 18 /min Dr. Humberto Jackson MD Work Phone: 8(909)734-254710 [place] [address] 03-21-2025 13:16-0400 SaO2% (BldA) [Mass fraction] 98 % Dr. Humberto Jackson MD Work Phone: 1(307)272-105410 [place] [address] 03-21-2025 13:16-0400 Systolic blood pressure 127 mm[Hg] Dr. Humberto Jackson MD Work Phone: 1(667)176-370810 [place] [address] 03-21-2025 09:31-0400 Inhaled oxygen flow rate 2 L/min Dr. Humberto Jackson MD Work Phone: 0(627)925-910910 [place] [address] 03-20-2025 15:26-0400 Body height 187.[address] Humberot Jackson MD Work Phone: 6(089)712-239810 [place] [address] 03-20-2025 15:26-0400 Body weight 122.[address] Humberto Jackson MD Work Phone: 4(091)341-362010 [place] [address] 03-20-2025 13:19-0400 Body mass index (BMI) [Ratio] 34.7 kg/m2 Dr. Humberto Jackson MD Work Phone: 4(660)777-466710 [place] [address] 03-16-2025 15:35-0400 Body temperature 98.1 [degF] Dr. Humberto Jackson MD Work Phone: 1(096)196-632910 [place] [address] 03-16-2025 15:35-0400 Diastolic blood pressure 69 mm[Hg] Dr. Humberto Jackson MD Work Phone: 1(121)005-911110 [place] [address] 03-16-2025 15:35-0400 Heart rate 97 /min Dr. Humberto Jackson MD Work Phone: 5(733)025-711210 [place] [address] 03-16-2025 15:35-0400 Respiratory rate 20 /min Dr. Humberto Jackson MD Work Phone: 3(453)355-268610 [place] [address] 03-16-2025 15:35-0400 SaO2% (BldA) [Mass fraction] 94 % Dr. Humberto Jackson MD Work Phone: 9(994)673-442210 [place] [address] 03-16-2025 15:35-0400 Systolic blood pressure 109 mm[Hg] Dr. Humberto Jackson MD Work Phone: 1(578)013-805610 [place] [address] 03-16-2025 12:07-0400 Body height 187.[address] Humberto Jackson MD Work Phone: 2(099)273-38[address] [place] [address] 03-16-2025 12:07-0400 Body mass index (BMI) [Ratio] 34.7 kg/m2 Dr. Humberto Jackson MD Work Phone: [facility] 03-16-2025 12:07-0400 Body weight 122.[address] Humberto Jackson MD Work Phone: [facility] 03-10-2025 08:26-0400 Body mass index (BMI) [Ratio] 35.49 kg/m2 Nelda Braydon [employer]AVA MANAGER[employer] Work Phone: [facility] 03-10-2025 08:26-0400 Body weight 125.37 kg Nelda Braydon JAVA MANAGER.[employer] Work Phone: [facility] 03-10-2025 08:26-0400 Diastolic blood pressure 74 mm[Hg] Nelda Braydon JAVA MANAGER.[employer] Work Phone: [facility] 03-10-2025 08:26-0400 Heart rate 98 /min Nelda Braydon JAVA MANAGER.[employer] Work Phone: [facility] 03-10-2025 08:26-0400 Respiratory rate 16 /min Nelda Braydon JAVA MANAGER.[employer] Work Phone: [facility] 03-10-2025 08:26-0400 SaO2% (BldA) [Mass fraction] 96 % Nelda Braydon JAVA MANAGER.[employer] Work Phone: [facility] 03-10-2025 08:26-0400 Systolic blood pressure 114 mm[Hg] Nelda Braydon JAVA MANAGER.[employer] Work Phone: [facility] 03-06-2025 06:52-0400 Body mass index (BMI) [Ratio] 35.69 kg/m2 Kenyatta Castaneda PA-C Work Phone: [facility] 03-06-2025 06:52-0400 Body temperature 97 [degF] Kenyatta Castaneda PA-C Work Phone: [facility] 03-06-2025 06:52-0400 Body weight 126.1 kg Kenyatta Castaneda PA-C Work Phone: [facility] 03-06-2025 06:52-0400 Diastolic blood pressure 82 mm[Hg] Kenyatta Castaneda PA-C Work Phone: [facility] 03-06-2025 06:52-0400 Heart rate 94 /min Kenyatta Castaneda PA-C Work Phone: [facility] 03-06-2025 06:52-0400 Respiratory rate 18 /min Kenyatta Castaneda PA-C Work Phone: [facility] 03-06-2025 06:52-0400 SaO2% (BldA) [Mass fraction] 94 % Kenyatta Castaneda PA-C Work Phone: [facility] 03-06-2025 06:52-0400 Systolic blood pressure 126 mm[Hg] Kenyatta Castaneda PA-C Work Phone: [facility] 02-06-2025 07:55-0400 Body height 188 cm Jenn Bowman MD Work Phone: [facility] 02-06-2025 07:55-0400 Body mass index (BMI) [Ratio] 36.98 kg/m2 Jenn Bowman MD Work Phone: [facility] 02-06-2025 07:55-0400 Body weight 130.64 kg Jenn Bowman MD Work Phone: [facility] 02-06-2025 07:55-0400 Diastolic blood pressure 84 mm[Hg] Jenn Bowman MD Work Phone: [facility] 02-06-2025 07:55-0400 Heart rate 100 /min Jenn Bowman MD Work Phone: [facility] 02-06-2025 07:55-0400 SaO2% (BldA) [Mass fraction] 96 % Jenn Bowman MD Work Phone: [facility] 02-06-2025 07:55-0400 Systolic blood pressure 125 mm[Hg] Jenn Bowman MD Work Phone: [facility] 01-21-2025 11:14-0400 Body mass index (BMI) [Ratio] 36.72 kg/m2 Humberto Jackson MD Work Phone: [facility] 01-21-2025 11:14-0400 Body temperature 97.81 [degF] Humberto Jackson MD Work Phone: [facility] 01-21-2025 11:14-0400 Body weight 129.73 kg Humberto Jackson MD Work Phone: [facility] 01-21-2025 11:14-0400 Diastolic blood pressure 88 mm[Hg] Humberto Jackson MD Work Phone: [facility] 01-21-2025 11:14-0400 Heart rate 88 /min Humberto Jackson MD Work Phone: [facility] 01-21-2025 11:14-0400 Respiratory rate 16 /min Humberto Jackson MD Work Phone: [facility] 01-21-2025 11:14-0400 SaO2% (BldA) [Mass fraction] 95 % Humberto Jackson MD Work Phone: [facility] 01-21-2025 11:14-0400 Systolic blood pressure 124 mm[Hg] Humberto Jackson MD Work Phone: [facility] 01-06-2025 14:22-0400 Body height 188 cm Lauren Mckeon MD Work Phone: [facility] 01-06-2025 14:22-0400 Body mass index (BMI) [Ratio] 36.29 kg/m2 Lauren Mckeon MD Work Phone: [facility] 01-06-2025 14:22-0400 Body weight 128.2 kg Lauren Mckeon MD Work Phone: [facility] 01-06-2025 14:22-0400 Diastolic blood pressure 86 mm[Hg] Lauren Mckeon MD Work Phone: [facility] 01-06-2025 14:22-0400 Heart rate 80 /min Lauren Mckeon MD Work Phone: [facility] 01-06-2025 14:22-0400 Respiratory rate 16 /min Lauren Mckeon MD Work Phone: [facility] 01-06-2025 14:22-0400 SaO2% (BldA) [Mass fraction] 96 % Lauren Mckeon MD Work Phone: [facility] 01-06-2025 14:22-0400 Systolic blood pressure 126 mm[Hg] Lauren Mckeon MD Work Phone: [facility] 12-30-2024 08:04-0400 Body height 188 cm Humberto Jackson MD Work Phone: [facility] 12-30-2024 08:04-0400 Body mass index (BMI) [Ratio] 36.08 kg/m2 Humberto Jackson MD Work Phone: [facility] 12-30-2024 08:04-0400 Body weight 127.46 kg Humberto Jackson MD Work Phone: [facility] 12-30-2024 08:04-0400 Diastolic blood pressure 74 mm[Hg] Humberto Jackson MD Work Phone: [facility] 12-30-2024 08:04-0400 Heart rate 88 /min Humberto Jackson MD Work Phone: [facility] 12-30-2024 08:04-0400 Respiratory rate 18 /min Humberto Jackson MD Work Phone: [facility] 12-30-2024 08:04-0400 SaO2% (BldA) [Mass fraction] 92 % Humberto Jackson MD Work Phone: [facility] Comment on above: walking 12-30-2024 08:04-0400 Systolic blood pressure 118 mm[Hg] Humberto Jackson MD Work Phone: [facility] 12-20-2024 09:41-0400 Body mass index (BMI) [Ratio] 36.83 kg/m2 Humberto Jackson MD Work Phone: [facility] 12-20-2024 09:41-0400 Body weight 130.18 kg Humberto Jackson MD Work Phone: [facility] 12-20-2024 09:41-0400 Diastolic blood pressure 84 mm[Hg] Humberto Jackson MD Work Phone: [facility] 12-20-2024 09:41-0400 Heart rate 88 /min Humberto Jackson MD Work Phone: [facility] 12-20-2024 09:41-0400 Respiratory rate 16 /min Humberto Jackson MD Work Phone: [facility] 12-20-2024 09:41-0400 Systolic blood pressure 128 mm[Hg] Humberto Jackson MD Work Phone: [facility] 11-22-2024 08:14-0500 Body mass index (BMI) [Ratio] 36.96 kg/m2 Humberto Jackson MD Work Phone: [facility] 11-22-2024 08:14-0500 Body weight 130.64 kg Humberto Jackson MD Work Phone: [facility] 11-22-2024 08:14-0500 Diastolic blood pressure 90 mm[Hg] Humberto Jackson MD Work Phone: [facility] 11-22-2024 08:14-0500 Heart rate 92 /min Humberto Jackson MD Work Phone: [facility] 11-22-2024 08:14-0500 Respiratory rate 16 /min Humberto Jackson MD Work Phone: [facility] 11-22-2024 08:14-0500 Systolic blood pressure 120 mm[Hg] Humberto Jackson MD Work Phone: [facility] 09-17-2024 09:37-0500 Diastolic blood pressure 78 mm[Hg] Humberto Jackson MD Work Phone: [facility] 09-17-2024 09:37-0500 Systolic blood pressure 114 mm[Hg] Humberto Jackson MD Work Phone: [facility] 09-17-2024 09:25-0500 Body mass index (BMI) [Ratio] 37.09 kg/m2 Humberto Jackson MD Work Phone: [facility] 09-17-2024 09:25-0500 Body weight 131.09 kg Humberto Jackson MD Work Phone: [facility] 09-17-2024 09:25-0500 Heart rate 90 /min Humberto Jackson MD Work Phone: [facility] 09-17-2024 09:25-0500 Respiratory rate 16 /min Humberto Jackson MD Work Phone: [facility] 08-19-2024 15:13-0500 Diastolic blood pressure 84 mm[Hg] Humberto Jackson MD Work Phone: [facility] 08-19-2024 15:13-0500 Systolic blood pressure 128 mm[Hg] Humberto Jackson MD Work Phone: [facility] 08-19-2024 14:50-0500 Body mass index (BMI) [Ratio] 37.6 kg/m2 Humberto Jackson MD Work Phone: [facility] 08-19-2024 14:50-0500 Body weight 132.9 kg Humberto Jackson MD Work Phone: [facility] 08-19-2024 14:50-0500 Heart rate 86 /min Humberto Jackson MD Work Phone: [facility] 08-19-2024 14:50-0500 Respiratory rate 16 /min Humberto Jackson MD Work Phone: [facility] 06-12-2024 09:00-0400 Diastolic blood pressure 97 mm[Hg] Karla Golias PT Work Phone: [facility] 06-12-2024 09:00-0400 Heart rate 82 /min Karla Golias PT Work Phone: [facility] 06-12-2024 09:00-0400 Systolic blood pressure 142 mm[Hg] Karla Golias PT Work Phone: [facility] 06-06-2024 07:52-0400 Body mass index (BMI) [Ratio] 38.37 kg/m2 Dominik Judge APRN.CNP Work Phone: [facility] 06-06-2024 07:52-0400 Body weight 135.63 kg Dominik Judge JAVA MANAGER.[employer] Work Phone: [facility] 06-06-2024 07:52-0400 Diastolic blood pressure 80 mm[Hg] Dominik Judge JAVA MANAGER.[employer] Work Phone: [facility] 06-06-2024 07:52-0400 Heart rate 83 /min Dominik Judge JAVA MANAGER.[employer] Work Phone: [facility] 06-06-2024 07:52-0400 Respiratory rate 14 /min Dominik Judge JAVA MANAGER.[employer] Work Phone: [facility] 06-06-2024 07:52-0400 Systolic blood pressure 116 mm[Hg] Dominik Judge JAVA MANAGER.[employer] Work Phone: [facility] 05-21-2024 15:44-0400 Body mass index (BMI) [Ratio] 38.12 kg/m2 Dominik Judge JAVA MANAGER.[employer] Work Phone: [facility] 05-21-2024 15:44-0400 Body weight 134.72 kg Dominik Judge JAVA MANAGER.[employer] Work Phone: [facility] 05-21-2024 15:44-0400 Diastolic blood pressure 98 mm[Hg] Dominik Judge JAVA MANAGER.[employer] Work Phone: [facility] 05-21-2024 15:44-0400 Heart rate 105 /min Dominik Judge JAVA MANAGER.[employer] Work Phone: [facility] 05-21-2024 15:44-0400 Respiratory rate 14 /min Dominik Judge JAVA MANAGER.[employer] Work Phone: [facility] 05-21-2024 15:44-0400 Systolic blood pressure 150 mm[Hg] Dominik Judge JAVA MANAGER.[employer] Work Phone: [facility] 01-31-2024 13:54-0400 Diastolic blood pressure 83 mm[Hg] Jacob Prado Jr., MD Work Phone: [facility] 01-31-2024 13:54-0400 Systolic blood pressure 130 mm[Hg] Jacob Prado Jr., MD Work Phone: [facility] 01-31-2024 13:43-0400 Body height 188 cm Jacob Prado Jr., MD Work Phone: [facility] 01-31-2024 13:43-0400 Body mass index (BMI) [Ratio] 38.68 kg/m2 Jacob Prado Jr., MD Work Phone: [facility] 01-31-2024 13:43-0400 Body weight 136.7 kg Jacob Prado Jr., MD Work Phone: [facility] 01-31-2024 13:43-0400 Heart rate 78 /min Jacob Prado Jr., MD Work Phone: [facility] 01-31-2024 13:43-0400 SaO2% (BldA) [Mass fraction] 100 % Jacob Prado Jr., MD Work Phone: [facility] 01-17-2024 07:58-0400 Body height 188 cm [facility] JAVA MANAGER.[employer]ER Work Phone: [facility] 01-17-2024 07:58-0400 Body weight 134.9 kg [facility] JAVA MANAGER.[employer] Work Phone: [facility] 01-17-2024 07:58-0400 Diastolic blood pressure 91 mm[Hg] [facility] MANAGER.[employer] Work Phone: [facility] 01-17-2024 07:58-0400 Heart rate 88 /min [facility] JAVA MANAGER.[employer] Work Phone: [facility] 01-17-2024 07:58-0400 SaO2% (BldA) [Mass fraction] 95 % [facility] JAVA MANAGER.[employer] Work Phone: [facility] 01-17-2024 07:58-0400 Systolic blood pressure 136 mm[Hg] Torres Jeannekimi CHAU Work Phone: [facility] 12-06-2023 09:13-0500 Diastolic blood pressure 78 mm[Hg] Humberto Jackson MD Work Phone: [facility] 12-06-2023 09:13-0500 Systolic blood pressure 132 mm[Hg] Humberto Jackson MD Work Phone: [facility] 12-06-2023 08:37-0500 Body height 188 cm Humberto Jackson MD Work Phone: [facility] 12-06-2023 08:37-0500 Body weight 132.45 kg Humberto Jackson MD Work Phone: [facility] 12-06-2023 08:37-0500 Heart rate 72 /min Humberto Jackson MD Work Phone: [facility] 12-06-2023 08:37-0500 Respiratory rate 16 /min Humberto Jackson MD Work Phone: [facility] 04-15-2023 11:34-0400 Body temperature 99.3 [degF] Dr. Humberto Jackson Work Phone: [facility] 04-15-2023 11:34-0400 Diastolic blood pressure 77 mm[Hg] Dr. Humberto Jackson Work Phone: [facility] 04-15-2023 11:34-0400 Heart rate 87 /min Dr. Humberto Jackson Work Phone: [facility] 04-15-2023 11:34-0400 Respiratory rate 16 /min Dr. Humberto Jackson Work Phone: [facility] 04-15-2023 11:34-0400 SaO2% (BldA) [Mass fraction] 95 % Dr. Humberto Jackson Work Phone: [facility] 04-15-2023 11:34-0400 Systolic blood pressure 113 mm[Hg] Dr. Humberto Jackson Work Phone: [facility] 04-15-2023 05:01-0400 Inhaled oxygen flow rate 2 L/min Dr. Humberto Jackson Work Phone: [facility] 04-14-2023 17:03-0400 Body temperature 99.8 [degF] Dr. Humberto Jackson Work Phone: [facility] 04-14-2023 17:03-0400 Diastolic blood pressure 81 mm[Hg] Dr. Humberto Jackson Work Phone: [facility] 04-14-2023 17:03-0400 Heart rate 99 /min Dr. Humberto Jackson Work Phone: [facility] 04-14-2023 17:03-0400 Respiratory rate 16 /min Dr. Humberto Jackson Work Phone: [phone] [address] 04-14-2023 17:03-0400 SaO2% (BldA) [Mass fraction] 91 % Dr. Humberto Jackson Work Phone: [phone])[phone] [place] [address] 04-14-2023 17:03-0400 Systolic blood pressure 117 mm[Hg] Dr. Humberto Jackson Work Phone: [facility] 04-14-2023 16:13-0400 Body height 187.[address] Humberto Jackson Work Phone: [phone])[phone] [place] [address] 04-14-2023 16:13-0400 Body mass index (BMI) [Ratio] 36.9 kg/m2 Dr. Humberto Jackson Work Phone: [facility] 04-14-2023 16:13-0400 Body weight 130.[address] Humberto Jackson Work Phone: [facility] 04-14-2023 13:41-0400 Body weight 130.18 kg Dominik Judge APRN.[employer] W[employer]ER Work Phone: [facility] 04-14-2023 13:41-0400 Diastolic blood pressure 88 mm[Hg] Dominik Judge APRN.[employer]IP[employer] W[employer]ER Work Phone: [facility] 04-14-2023 13:41-0400 Heart rate 114 /min Dominik Judge JAVA MANAGER.[employer] Work Phone: [facility] 04-14-2023 13:41-0400 Respiratory rate 16 /min Dominik uJdge JAVA MANAGER.[employer]ER Work Phone: [facility] 04-14-2023 13:41-0400 Systolic blood pressure 132 mm[Hg] Dominik Judge JAVA MANAGER.[employer] Work Phone: [facility] 04-10-2023 08:02-0400 Body temperature 97.7 [degF] Kenyatta Castaneda PA-C Work Phone: [facility] 04-10-2023 08:02-0400 Body weight 130.64 kg Kenyatta Castaneda PA-C Work Phone: [facility] 04-10-2023 08:02-0400 Diastolic blood pressure 82 mm[Hg] Kenyatta Castaneda PA-C Work Phone: [facility] 04-10-2023 08:02-0400 Heart rate 96 /min Kenyatta Castaneda PA-C Work Phone: [facility] 04-10-2023 08:02-0400 Respiratory rate 18 /min Kenyatta Castaneda PA-C Work Phone: [facility] 04-10-2023 08:02-0400 Systolic blood pressure 136 mm[Hg] Kenyatta Castaneda PA-C Work Phone: [facility] 01-27-2023 15:46-0400 Body height 188 cm Torres Kupiec JAVA MANAGER.[employer] Work Phone: [facility] 01-27-2023 15:46-0400 Body weight 131.63 kg [facility] J[facility] MANAGER.[employer] Work Phone: [facility] 01-27-2023 15:46-0400 Diastolic blood pressure 85 mm[Hg] Torres Kupiec JAVA MANAGER.[employer]ER Work Phone: [facility] 01-27-2023 15:46-0400 Heart rate 102 /min [facility] JAVA MANAGER.[employer]ER Work Phone: [facility] 01-27-2023 15:46-0400 SaO2% (BldA) [Mass fraction] 97 % [facility] JAVA MANAGER.[employer]ER Work Phone: [facility] 01-27-2023 15:46-0400 Systolic blood pressure 142 mm[Hg] [facility] JAVA MANAGER.[employer]ER Work Phone: [facility] 01-09-2023 08:18-0400 Body weight 131.09 kg Dominik Judge JAVA MANAGER.[employer]ER Work Phone: [facility] 01-09-2023 08:18-0400 Diastolic blood pressure 82 mm[Hg] Dominik Judge JAVA MANAGER.[employer] Work Phone: [facility] 01-09-2023 08:18-0400 Heart rate 80 /min Dominik Judge JAVA MANAGER.[employer] Work Phone: [facility] 01-09-2023 08:18-0400 Respiratory rate 16 /min Dominik Judge JAVA MANAGER.[employer]ER Work Phone: [facility] 01-09-2023 08:18-0400 Systolic blood pressure 124 mm[Hg] Dominik Judge JAVA MANAGER.[employer]ER Work Phone: [facility] 12-07-2022 08:57-0500 Body weight 129.73 kg Humberto Jackson MD Work Phone: [facility] 12-07-2022 08:57-0500 Diastolic blood pressure 84 mm[Hg] Humberto Jackson MD Work Phone: [facility] 12-07-2022 08:57-0500 Heart rate 84 /min Humberto Jackson MD Work Phone: [facility] 12-07-2022 08:57-0500 Respiratory rate 16 /min Humberto Jackson MD Work Phone: [facility] 12-07-2022 08:57-0500 Systolic blood pressure 124 mm[Hg] Humberto Jackson MD Work Phone: [facility] 08-30-2022 08:32-0500 Diastolic blood pressure 83 mm[Hg] Johanna Bliss MD Work Phone: [facility] 08-30-2022 08:32-0500 Heart rate 78 /min Johanna Bliss MD Work Phone: [facility] 08-30-2022 08:32-0500 Respiratory rate 16 /min Johanna Bliss MD Work Phone: [facility] 08-30-2022 08:32-0500 SaO2% (BldA) [Mass fraction] 90 % Johanna Bliss MD Work Phone: [facility] 08-30-2022 08:32-0500 Systolic blood pressure 124 mm[Hg] Johanna Bliss MD Work Phone: [facility] 08-30-2022 07:09-0500 Body temperature 97.5 [degF] Johanna Bliss MD Work Phone: [facility] 08-17-2022 12:34-0500 Body temperature 97.5 [degF] Kenyatta Castaneda PA-C Work Phone: [facility] 08-17-2022 12:34-0500 Body weight 127.91 kg Kenyatta Castaneda PA-C Work Phone: [facility] 08-17-2022 12:34-0500 Diastolic blood pressure 86 mm[Hg] Kenyatta Castaneda PA-C Work Phone: [facility] 08-17-2022 12:34-0500 Heart rate 76 /min Kenyatta Castaneda PA-C Work Phone: [facility] 08-17-2022 12:34-0500 Respiratory rate 18 /min Kenyatta Castaneda PA-C Work Phone: [facility] 08-17-2022 12:34-0500 Systolic blood pressure 122 mm[Hg] Kenyatta Castaneda PA-C Work Phone: [facility] 08-11-2022 10:32-0400 Body temperature 97 [degF] Kenyattayevgeniy Castaneda PA-C Work Phone: [facility] 08-11-2022 10:32-0400 Body weight 127.46 kg Kenyatta Castaneda PA-C Work Phone: [facility] 08-11-2022 10:32-0400 Diastolic blood pressure 88 mm[Hg] Kenyatta Castaneda PA-C Work Phone: [facility] 08-11-2022 10:32-0400 Heart rate 68 /min Kenyattayevgeniy Castaneda PA-C Work Phone: [facility] 08-11-2022 10:32-0400 Respiratory rate 18 /min Kenyattayevgeniy Castaneda PA-C Work Phone: [facility] 08-11-2022 10:32-0400 Systolic blood pressure 120 mm[Hg] Kenyatta Castaneda PA-C Work Phone: [facility] 08-04-2022 09:13-0400 Body temperature 98.91 [degF] Emmalorin Rener JAVA MANAGER.[employer] Work Phone: [facility] 08-04-2022 09:13-0400 Body weight 125.65 kg Emmalorin Sheets JAVA MANAGER.[employer] Work Phone: [facility] 08-04-2022 09:13-0400 Diastolic blood pressure 72 mm[Hg] Emmalorin Rener JAVA MANAGER.[employer]ER Work Phone: [facility] 08-04-2022 09:13-0400 Heart rate 90 /min Emmalorin Rener JAVA MANAGER.[employer] Work Phone: [facility] 08-04-2022 09:13-0400 Respiratory rate 24 /min Emmalorin Rener JAVA MANAGER.[employer]ER Work Phone: [facility] 08-04-2022 09:13-0400 SaO2% (BldA) [Mass fraction] 96 % Emmalorin Rener JAVA MANAGER.[employer]ER Work Phone: [facility] 08-04-2022 09:13-0400 Systolic blood pressure 122 mm[Hg] Emma Sheets JAVA MANAGER.[employer]ER Work Phone: [facility] 06-07-2022 08:01-0400 Body weight 134.63 kg [facility] JAVA MANAGER.[employer]ER Work Phone: [facility] 06-07-2022 08:01-0400 Diastolic blood pressure 88 mm[Hg] [facility] JAVA MANAGER.[employer]ER Work Phone: [facility] 06-07-2022 08:01-0400 Heart rate 79 /min [facility] JAVA MANAGER.[employer] Work Phone: [facility] 06-07-2022 08:01-0400 SaO2% (BldA) [Mass fraction] 95 % [facility] JAVA MANAGER.[employer] Work Phone: [facility] 06-07-2022 08:01-0400 Systolic blood pressure 132 mm[Hg] [facility] JAVA MANAGER.[employer]ER Work Phone: [facility] 06-04-2022 09:41-0400 Body height 188.5 cm Humberto Jackson MD Work Phone: [facility] 06-04-2022 09:41-0400 Body temperature 97.2 [degF] Humberto Jackson MD Work Phone: [facility] 06-04-2022 09:41-0400 Body weight 132.45 kg Humberto Jackson MD Work Phone: [facility] 06-04-2022 09:41-0400 Diastolic blood pressure 86 mm[Hg] Humberto Jackson MD Work Phone: [facility] 06-04-2022 09:41-0400 Heart rate 72 /min Humberto Jackson MD Work Phone: [facility] 06-04-2022 09:41-0400 Respiratory rate 18 /min Humberto aJckson MD Work Phone: [facility] 06-04-2022 09:41-0400 Systolic blood pressure 122 mm[Hg] Humberto Jackson MD Work Phone: [facility] 03-04-2022 [id number] Body height 187.2 cm [facility] JAVA MANAGER.[employer] Work Phone: [facility] 03-04-2022 08:28040 Body weight 137.8 kg [facility] JAVA MANAGER.[employer] Work Phone: [facility] 03-04-2022 [id number] Diastolic blood pressure 97 mm[Hg] [facility] JAVA MANAGER.[employer] Work Phone: [facility] 03-04-2022 08:28040 Heart rate 77 /min [facility] JAVA MANAGER.[employer] Work Phone: [facility] 03-04-2022 08:[id number] SaO2% (BldA) [Mass fraction] 94 % [facility] JAVA MANAGER.[employer] Work Phone: [facility] 03-04-2022 [id number] Systolic blood pressure 148 mm[Hg] [facility] JAVA MANAGER.[employer] Work Phone: [facility] Encounters Encounter Date Encounter Type Care Provider Facility Start: 04-09-2025 ambulatory Humberto Jackson Facility :[facility] Start: 04-08-2025 End: 04-08-[address] Cary Chandra MD -[facility] Work Phone: Start: 04-08-2025 End: 04-08-2025 ambulatory Humberto Jackson Facility:[facility] Start: 04-07-2025 End: 04-07-[address] Maranda Hansen MD -[facility] Work Phone: Start: 04-07-2025 End: 04-07-[address] Humberto Jackson MD Work Phone: -[facility] Start: 04-04-2025 End: 04-04-2025 Follow-up encounter Humberto Jackson MD Work Phone: [facility] Comment on above: Results Start: 04-04-2025 End: 04-04-2025 ambulatory HUMBERTO Lurdes RAYA Facility:[facility] Start: 04-04-[address] Cary Chandra MD [facility] Work Phone: Start: 04-04-2025 ambulatory Humberto Jackson Facility :[facility] Start: 04-04-2025 End: 04-04-2025 Patient encounter procedure Humberto Jackson MD Work Phone: [facility] Comment on above: Malignant neoplasm o f stomach, unspecified location (HCC) (Primary Dx); Iron deficiency anemia, unspecified iron deficiency anemia type; Altered bowel function Start: 04-04-2025 End: 04-04-2025 ambulatory HUMBERTO JACKSON Facility:[facility] Start: 04-02-2025 End: 04-02-2025 Chart abstracting Humberto Jackson MD Work Phone: [facility] Comment on above: Outside PET Scan Start: 04-01-2025 End: 04-01-2025 Refill Kenyatta Catsaneda PA-C Work Phone: [facility] Comment on above: Med Change Request Start: 04-01-2025 ambulatory Humberto Jackson Facility :[facility] Start: 04-01-[address] Maddi Chandra MD -[facility] Start: 03-31-2025 End: 03-31-2025 Chart abstracting Humberto Jackson MD Work Phone: [facility] Comment on above: Outside [id number] Ordered (FOL, RBC) Start: 03-31-2025 End: 03-31-2025 Telephone encounter Jenn Bowman MD Work Phone: [facility] Comment on above: Appointment Start: 03-28-2025 End: 03-28-2025 Chart abstracting Tam Daugherty MA [facility] Comment on above: Results (Outside lab s /) Start: 03-28-[address] Maddi Chandra MD -[facility] Start: 03-27-2025 End: 03-27-[address] Cary Chandra MD -[facility] Work Phone: Start: 03-27-2025 End: 03-27-[address] Humberto Jackson MD Work Phone: [facility] Work Phone: Start: 03-26-2025 End: 03-26-2025 ambulatory Humberto Jackson MD Work Phone: [facility] Comment on above: Depression and Anxie ty Meds Start: 03-26-2025 End: 03-26-2025 Chart abstracting Tam Daugherty MA [facility] Comment on above: Results (Outside lab s /) Start: 03-25-2025 End: 03-25-[address] Humberto Jackson MD Work Phone: [facility] Work Phone: Start: 03-25-2025 End: 03-25-[address] Jacyk Jaimes DO -Laboratory Work Phone: Start: 03-25-2025 End: 03-25-2025 ambulatory Humberto Jackson Facility:[facility] Start: 03-22-2025 End: 03-26-2025 Refill Humberto Jackson MD Work Phone: [facility] Comment on above: Refill Request [place] Start: 03-21-2025 End: 03-21-2025 Chart abstracting Humberto Jackson MD Work Phone: [facility] Comment on above: Outside EGD Start: 03-21-2025 Non-patient / Non-visit Jonathan Wallace nd DO -[facility] Start: 03-20-2025 Non-patient / Non-visit Dr. Stacy Jaimes DO -[facility] Work Phone: Start: 03-20-2025 Non-patient / Non-visit Jonathan Wallace nd DO -[facility] Start: 03-20-2025 End: 03-20-2025 Chart abstracting Humberto Jackson MD Work Phone: [facility] Comment on above: Outside EGD (Operati ve Letter) Start: 03-19-2025 Non-patient / Non-visit Dr. Stacy Jaimes [facility] Work Phone: Start: 03-18-2025 Non-patient / Non-visit Dr. Stacy Jaimes [facility] Work Phone: Start: 03-18-2025 End: 03-18-2025 Chart abstracting Humberto Jackson MD Work Phone: [facility] Comment on above: Outside EGD (EGD Let ter) Start: 03-17-2025 Non-patient / Non-visit Dr. Stacy Jaimes [facility] Inpatient Physicians Work Phone: Start: 03-17-2025 Non-patient / Non-visit Jonathan Wallace nd, DO [facility] Start: 03-16-2025 Non-patient / Non-visit Dr. Tia Bergman DO [facility] Inpatient Physicians Work Phone: Start: 03-16-2025 ambulatory Humberto Jackson Facility :[facility] Start: 03-16-2025 End: 03-21-2025 Evaluation and management of inpatient Dr. Tia Bergman DO [facility] Surgical 3 Work Phone: Start: 03-10-2025 End: 03-10-2025 Follow-up encounter Kenyatta Castaneda PA-C Work Phone: [facility] [place] Start: 03-10-2025 End: 03-10-2025 Telephone encounter Kenyatta Castaneda PA-C Work Phone: [facility] Comment on above: Results, Lab Start: 03-10-2025 End: 03-10-2025 Patient encounter procedure Nelda Quigley JAVA MANAGER.[employer] Work Phone: General Surgery Comment on above: Family history of co mer cancer (Primary Dx); Anemia, unspecified type Start: 03-10-2025 End: 03-10-2025 ambulatory NELDA QUIGLEY Facility:[facility] Start: 03-07-2025 End: 03-07-2025 Follow-up encounter Kenyatta Castaneda PA-C Work Phone: [facility] [place] Comment on above: Results Start: 03-07-2025 End: 03-07-2025 Telephone encounter Kenyatta Castaneda PA-C Work Phone: [facility] [place] Start: 03-07-2025 End: 03-07-2025 ambulatory KENYATTA CASTANEDA Facility:[facility] Start: 03-06-2025 End: 03-06-2025 ambulatory HUMBERTO JACKSON Facility:[facility] Start: 03-06-2025 End: 03-06-2025 Office outpatient visit 25 minutes Kenyatta Castaneda PA-C Work Phone: [facility] [place] Comment on above: Tachycardia (Primary Dx); Lightheadedness Start: 03-06-2025 End: 03-06-2025 ambulatory HUMBERTO JACKSON Facility:[facility] Start: 02-21-2025 End: 02-21-2025 Patient encounter procedure Vikash Booth MD Work Phone: Orthopedics Comment on above: Adhesive capsulitis of right shoulder Start: 02-21-2025 End: 02-21-2025 ambulatory ELIZABETH SUÁREZ Facility:[facility] Start: 02-18-2025 End: 02-18-2025 Patient encounter procedure [facility] Provider [facility] Department Start: 02-18-2025 End: 02-18-2025 Refill Torres Monaco APRN.[employer] Work Phone: Endocrinology Comment on above: Refill Request Start: 02-12-2025 End: 02-12-2025 Telephone encounter Varsha Vaughn APRN.[employer]IP[employer]IL WINDER Work Phone: [facility] Comment on above: Patient Update (Tony atric Benefits Investigation) Start: 02-06-2025 End: 02-06-2025 Telemedicine consultation with patient Jana Babcock MD Work Phone: Endocrinology Start: 02-06-2025 End: 02-06-2025 Patient encounter procedure Jenn Bowman MD Work Phone: [facility] Comment on above: Gastroesophageal ref lux disease, unspecified whether esophagitis present (Primary Dx); Class 2 severe obesity with serious comorbidity and body mass index (BMI) of 36.0 to 36.9 in adult, unspecified obesity type (HCC); NAFLD (nonalcoholic fatty liver disease); Esophageal dysphagia; MIKE (obstructive sleep apnea) Start: 02-06-2025 End: 02-06-2025 ambulatory Humberto Jackson MD Work Phone: [facility] [place] Comment on above: Methylphenidate shor tage Pituitary gland enla rged (HCC) (Primary Dx); Gynecomastia, male; Elevated prolactin level; Abnormal finding on MRI of brain; Gynecomastia Start: 01-21-2025 End: 01-21-2025 ambulatory HUMBERTO JACKSON Facility:[facility] Start: 01-21-2025 End: 01-21-2025 Patient encounter procedure Humberto Jackson MD Work Phone: [facility] [place] Comment on above: Bacterial pneumonia (Primary Dx); Gastroesophageal reflux disease without esophagitis; Belching; Attention 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 Start: 01-11-2025 End: 01-11-2025 ambulatory HUMBERTO JACKSON Facility:[facility] Start: 01-10-2025 End: 01-10-2025 Refill Torres Monaco APRN.CNP Work Phone: Endocrinology Comment on above: Refill Request Start: 01-08-2025 End: 03-10-2025 Follow-up encounter Elizabeth Suárez MD Work Phone: [facility] [place] Start: 01-06-2025 End: 01-06-2025 Office outpatient new 45 minutes Lauren Mckeon MD Work Phone: [facility] Comment on above: Gynecomastia, male ( Primary Dx); Abnormal brain MRI Start: 01-06-2025 End: 01-06-2025 ambulatory LAUREN MCKEON Facility:[facility] Start: 01-04-2025 ambulatory HUMBERTO JACKSON Facili ty:[facility] Start: 01-04-2025 End: 01-04-2025 Subsequent hospital visit by physician Mri [facility] (1.5t) Radiology Comment on above: Acute pain of right shoulder [M25.511] Start: 12-30-2024 End: 12-30-2024 Follow-up encounter Humberto Jackson MD Work Phone: [facility] [place] Start: 12-30-2024 End: 12-30-2024 Subsequent hospital visit by physician Xr Count Includes [facility] [place] Work Phone: Radiology Comment on above: Abnormal lung sounds [R09.89] Start: 12-30-2024 End: 12-30-2024 ambulatory HUMBERTO JACKSON Facility:[facility] Start: 12-30-2024 End: 12-30-2024 Ophthalmic examination and evaluation Humberto Jackson MD Work Phone: [facility] Start: 12-30-2024 End: 12-30-2024 Patient encounter procedure Humberto Jackson MD Work Phone: [facility] [place] Comment on above: Well [...] encounter status Humberto Jackson MD Work Phone: [facility] Work Phone: Start: 12-24-2024 End: 12-24-2024 Telephone encounter Lauren Mckeon MD Work Phone: [facility] Start: 12-23-2024 End: 12-23-2024 Telephone encounter Humberto Jackson MD Work Phone: [facility] [place] Comment on above: Appointment Start: 12-20-2024 End: 12-20-2024 Telephone encounter Lauren Mckeon MD Work Phone: [facility] Start: 12-20-2024 End: 12-20-2024 ambulatory HUMBERTO JACKSON Facility:[facility] Start: 12-20-2024 End: 12-20-2024 Patient encounter procedure Humberto Jackson MD Work Phone: [facility] [place] Comment on above: Gynecomastia (Primar y Dx); Acute pain of right shoulder; Elevated prolactin level; Pituitary adenoma (HCC) Start: 12-16-2024 End: 12-16-2024 E-mail encounter from caregiver Tam Dat KUMAR [facility] [place] Start: 12-16-2024 End: 12-16-2024 Patient encounter procedure Tam Dat KUMAR [facility] [place] Comment on above: results/appointments Start: 2024 End: 12-17-2024 Telephone encounter David Lindsey MD Work Phone: [facility] Start: 12-12-2024 End: 12-12-2024 Telephone encounter Self [facility] Comment on above: Triage (WQ) Start: 12-11-2024 End: 12-16-2024 Follow-up encounter Humberto Jackson MD Work Phone: [facility] [place] Comment on above: Gynecomastia, male ( Primary Dx); Elevated prolactin level; Abnormal finding on MRI of brain Start: 12-11-2024 End: 12-11-2024 ambulatory HUMBERTO JACKSON Facility:[facility] Start: 12-11-2024 End: 12-11-2024 Subsequent hospital visit by physician Kiesha genesis Brown (I-Stat/1.5t) Radiology Comment on above: Gynecomastia, male [ N62] Start: 12-06-2024 End: 12-09-2024 ambulatory Humberto Jackson MD Work Phone: [facility] [place] Comment on above: Methylphenidate Start: 12-03-2024 End: 12-04-2024 Follow-up encounter Humberto Jackson MD Work Phone: [facility] [place] Comment on above: Gynecomastia, male ( Primary Dx) Start: 12-03-2024 End: 12-03-2024 ambulatory HUMBERTO JACKSON Facility:[facility] Start: 12-03-2024 End: 12-03-2024 Subsequent hospital visit by physician [facility] Work Phone: Radiology Comment on above: Subareolar mass of r ight breast [N63.41] Start: 11-26-2024 End: 11-27-2024 Follow-up encounter Humberto Jackson MD Work Phone: [facility] [place] Comment on above: Gynecomastia, male ( Primary Dx); Low testosterone in male; Elevated prolactin level; Medication management Start: 11-22-2024 End: 11-22-2024 Office outpatient visit 25 minutes Humberto Jackson MD Work Phone: [facility] [place] Comment on above: Subareolar mass of r ight breast (Primary Dx) Start: 11-22-2024 End: 11-22-2024 ambulatory HUMBERTO JACKSON Facility:[facility] Start: 11-20-2024 End: 11-20-2024 E-mail encounter from caregiver Tam Daugherty MA [facility] [place] Start: 11-20-2024 End: 11-20-2024 Patient encounter procedure Tam Daugherty MA [facility] [place] Comment on above: Appointment Start: 11-18-2024 End: 11-18-2024 Refill Humberto Jackson MD Work Phone: [facility] [place] Comment on above: Refill Request Start: 11-04-2024 End: 11-05-2024 Refill Torres Monaco APRN.CNP Work Phone: Endocrinology Comment on above: Refill Request Start: 10-25-2024 End: 10-25-2024 ambulatory HUMBERTO JACKSON Facility:[facility] Start: 10-25-2024 End: 10-25-2024 Subsequent hospital visit by physician [facility] Work Phone: Radiology Comment on above: Elevated alkaline ph osphatase level [R74.8] Start: 10-23-2024 End: 10-23-2024 ambulatory Humberto Jackson MD Work Phone: [facility] [place] Comment on above: Gerd Start: 10-16-2024 End: 10-28-2024 Telephone encounter Humberto Jackson MD Work Phone: [facility] [place] Comment on above: Results Start: 10-14-2024 End: 10-14-2024 ambulatory HUMBERTO JACKSON Facility:[facility] Start: 10-10-2024 End: 10-11-2024 ambulatory Humberto Jackson MD Work Phone: [facility] [place] Comment on above: Reflux Start: 09-17-2024 End: 09-17-2024 ambulatory HUMBERTO JACKSON Facility:[facility] Start: 09-17-2024 End: 09-17-2024 Patient encounter procedure Humberto Jackson MD Work Phone: [facility] [place] Comment on above: Attention deficit di sorder (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 (Primary Dx); Mood disorder (HCC); Major depressive disorder with single episode, in partial remission (HCC); Agitation; Dyslipidemia Start: 08-26-2024 End: 08-26-2024 ambulatory Karla Patel PT Work Phone: [facility] Physical Therapy Comment on above: Acute pain of right shoulder (Primary Dx) Start: 08-19-2024 End: 08-19-2024 Patient encounter procedure Humberto Jackson MD Work Phone: [facility] [place] Comment on above: Attention deficit di sorder (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 (Primary Dx); Major depressive disorder with single episode, in partial remission (HCC); Medication management Start: 08-19-2024 End: 08-19-2024 ambulatory HUMBERTO JACKSON Facility:[facility] Start: 08-17-2024 End: 08-19-2024 Kavya Castaneda PA-C Work Phone: [facility] Comment on above: Refill Request Start: 08-05-2024 End: 08-05-2024 ambulatory Karla Golias PT Work Phone: [facility] Physical Therapy Comment on above: Acute pain of right shoulder (Primary Dx) Start: 07-22-2024 End: 07-22-2024 ambulatory Karla Golias PT Work Phone: [facility] Physical Therapy Comment on above: Acute pain of right shoulder (Primary Dx) Start: 06-28-2024 End: 06-28-2024 ambulatory Ruby Dexter CORE MOUNTER Work Phone: [facility] Physical Therapy Comment on above: Acute pain of right shoulder (Primary Dx) Start: 06-16-2024 End: 06-17-2024 Refill Humberto Jackson MD Work Phone: [facility] Comment on above: Refill Request Start: 06-12-2024 End: 06-12-2024 ambulatory Karla Golias PT Work Phone: [facility] Physical Therapy Comment on above: Acute pain of right shoulder Start: 06-06-2024 End: 06-06-2024 Patient encounter procedure Dominik Judge APRN.[employer] Work Phone: [facility] Comment on above: Dyslipidemia (Primar y Dx); Type 2 diabetes mellitus without complication, without long-term current use of insulin (HCC); Multiple thyroid nodules; Medication management; GERD without esophagitis Start: 06-06-2024 End: 06-06-2024 ambulatory HUMBERTO JACKSON Facility:[facility] Start: 05-27-2024 End: 05-28-2024 Telephone encounter Dominik Judge APRN.[employer] Work Phone: [facility] Comment on above: Results Start: 05-21-2024 End: 05-21-2024 Subsequent hospital visit by physician [facility] Work Phone: Radiology Comment on above: Acute pain of right shoulder [M25.511] Start: 05-21-2024 End: 05-21-2024 ambulatory HUMBERTO JACKSON Facility:[facility] Start: 05-21-2024 End: 05-21-2024 Patient encounter procedure Dominik Lightguy DODSONMULTIPLE COIL WINDER Work Phone: [facility] [place] Comment on above: Acute pain of right shoulder (Primary Dx); Type 2 diabetes mellitus without complication, without long-term current use of insulin (HCC); Dyslipidemia; Multiple thyroid nodules; Medication management Start: 05-21-2024 End: 05-21-2024 ambulatory Nurse Intm/Famp Triage Count Includes [facility] Work Phone: Nurse Phone Triage Comment on above: Nurse Triage Call Arm Pain Start: 05-13-2024 Refill Humberto payne MD Work Phone: [facility] [place] Comment on above: Refill Request Start: 03-12-2024 Chart abstracting Humberto san MD Work Phone: [facility] [place] Comment on above: Outside Procedure Start: 03-11-2024 Chart abstracting Tam D[facility] [place] Comment on above: Procedure Start: 02-28-2024 Telephone encounter Jacob le MD Work Phone: Endocrinology [facility] Comment on above: Outside Lab Results (Afirma Results) Start: 02-23-2024 Refill Humberto payne MD Work Phone: [facility] Comment on above: Refill Request Start: 02-13-2024 Telephone encounter Jacob le MD Work Phone: Endocrinology [facility] Comment on above: Results (Afirma 01/30) Start: 02-02-2024 ambulatory Jacob alonzo MD Work Phone: Endocrinology Comment on above: Biopsy Start: 02-02-2024 E-mail encounter sybil alonzo caregiver Jacob Prado Jr., MD Work Phone: Endocrinology Start: 01-31-2024 End: 01-31-2024 Orders Only Jacob Prado MD Work Phone: Endocrinology Comment on above: Thyroid nodule (Prim cherise Dx) Non-toxic nodular go iter (Primary Dx); Multiple thyroid nodules Start: 01-24-2024 Telephone encounter Torres tian JAVA MANAGER.[employer] Work Phone: Endocrinology Comment on above: Results; Appointment Start: 01-23-2024 Refill Humberto payne MD Work Phone: [facility] [place] Comment on above: Refill Request Start: 01-19-2024 ambulatory TORRES MONACO Facilit y:[facility] Start: 01-19-2024 End: 01-19-2024 Subsequent hospital visit by physician [facility] Work Phone: Radiology Comment on above: Multiple thyroid nod ules [E04.2] Start: 01-17-2024 Refill Torres lentz JAVA MANAGER.[employer] Work Phone: Endocrinology Comment on above: Med Change Request Start: 01-17-2024 End: 01-17-2024 Patient encounter procedure Torres Monaco JAVA MANAGER.[employer] Work Phone: Endocrinology Comment on above: Type 2 diabetes bernardo itus without complication, without long- term current use of insulin (HCC) (Primary Dx); Dyslipidemia; Multiple thyroid nodules; Obesity, Class II, BMI 35-39.9 Start: 12-15-2023 ambulatory Humberto payne MD Work Phone: [facility] [place] Comment on above: Ritalin Start: 12-14-2023 ambulatory Humberto payne MD Work Phone: [facility] [place] Comment on above: Medication Start: 12-07-2023 Telephone encounter Humberto Jackson MD Work Phone: [facility] [place] Comment on above: Results Start: 12-06-2023 End: 12-06-2023 Ophthalmic examination and evaluation Humberto Jackson MD Work Phone: [facility] Work Phone: Start: 12-06-2023 End: 12-06-2023 Patient encounter procedure Humberto Jackson MD Work Phone: [facility] [place] Comment on above: Well adult exam [...] encounter status Humberto Jackson MD Work Phone: [facility] Work Phone: Start: 11-29-2023 E-mail encounter sybil m caregiver Tam Daugherty MA [facility] [place] Start: 11-29-2023 Patient encounter procedure Tam Daugherty MA [facility] [place] Comment on above: appointment Start: 10-27-2023 End: 10-27-2023 Subsequent hospital visit by physician Cristofer Bland110 X-Ray 1 [facility] Comment on above: Right foot pain Start: 10-27-2023 End: 10-27-2023 ambulatory [facility] Start: 10-03-2023 Telephone encounter Torres tian APRN.CHRISTOPHER Work Phone: Endocrinology Comment on above: PA--FREESTYLE DIANA 3 SENSOR (RENEWAL) Start: 09-06-2023 Telephone encounter Torres tian APRN.[employer] Work Phone: Endocrinology Comment on above: PA--MOUNJARO 2.5 MG Start: 08-23-2023 Refill Torres lentz APRN.CNP Work Phone: Endocrinology Comment on above: Refill Request Start: 08-14-2023 Telephone encounter Dominik quintana APRN.CNP Work Phone: [facility] [place] Comment on above: Results Start: 07-15-2023 ambulatory Torres lentz APRN.CNP Work Phone: Endocrinology Comment on above: Ozempic Start: 06-04-2023 Refill Torres lentz APRN.[employer] Work Phone: Endocrinology Comment on above: Refill Request Start: 04-15-2023 Non-patient / Non-visit Dr. Leo Jackson Work Phone: [facility] Start: 04-14-2023 End: 04-15-2023 Evaluation and management of inpatient Dr. Humberto Jackson Work Phone: [facility] Surgical 3 Work Phone: Start: 04-14-2023 End: 04-15-[address] Humberto Jackson Work Phone: [facility] Work Phone: Start: 04-14-2023 Admission to [facility] Dr. Humberto Jackson Work Phone: [facility] Therapist Inpatients Work Phone: Start: 04-14-2023 Non-patient / Non-visit Dr. Leo Jackson Work Phone: [facility] Start: 04-14-2023 ambulatory Humberto payne MD Work Phone: [facility] Comment on above: Large lump under my skin Start: 04-14-2023 End: 04-14-2023 Patient encounter procedure Dominik Judge APRN.[employer] W[employer] Work Phone: [facility] Comment on above: Abscess of buttock ( Primary Dx) Start: 04-10-2023 End: 04-10-2023 Patient encounter procedure Kenyatta Castaneda PA-C Work Phone: [facility] Comment on above: Migraine without aur a and without status migrainosus, not intractable (Primary Dx); Type 2 diabetes mellitus without complication, without long-term current use of insulin (HCC); Dyslipidemia; Attention 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; Mood disorder (HCC); ISABELLA (generalized anxiety disorder) Start: 03-27-2023 Refill Dominik olivia JAVA MANAGER.[facility] Work Phone: [facility] Comment on above: Refill Request Start: 03-14-2023 Refill Torres Angeldequan lentz JAVA MANAGER.[facility] Work Phone: Endocrinology Comment on above: Refill Request Start: 03-14-2023 Refill Torresjose manuel lentz JAVA MANAGER.[facility] Work Phone: Endocrinology Comment on above: Refill Request Start: 01-27-2023 End: 01-27-2023 Patient encounter procedure Torres Gutierrezgenesis JAVA MANAGER.[facility] Work Phone: Endocrinology Comment on above: Type 2 diabetes bernardo itus without complication, without long- term current use of insulin (HCC) (Primary Dx); Dyslipidemia; Multiple thyroid nodules; Obesity, Class II, BMI 35-39.9 Start: 01-09-2023 End: 01-09-2023 Patient encounter procedure Dominik Judge APRN.[facility] Work Phone: [facility] Comment on above: Attention deficit di sorder (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 Start: 12-07-2022 Telephone encounter Humberto Jackson MD Work Phone: [facility] Comment on above: Results Start: 12-07-2022 End: 12-07-2022 Ophthalmic examination and evaluation Humberto Jackson MD Work Phone: [facility] Start: 12-07-2022 End: 12-07-2022 Patient encounter procedure Humberto Jackson MD Work Phone: [facility] Comment on above: Type 2 diabetes bernardo [...] management Start: 10-28-2022 Telephone encounter Torres tian JAVA MANAGER.[employer] Work Phone: Endocrinology Comment on above: Insurance Authorizat ion ([employer]) Start: 08-30-2022 End: 08-30-2022 Subsequent hospital visit by physician Johanna Bliss MD Work Phone: Ambulatory Surgery Comment on above: Family history of co mer cancer in father [Z80.0] Start: 08-17-2022 End: 08-17-2022 Patient encounter procedure Kenyatta Castaneda PA-C Work Phone: [facility] [place] Comment on above: Abscess of buttock ( Primary Dx); Pilonidal cyst Start: 08-11-2022 End: 08-11-2022 Patient encounter procedure Kenyatta Castaneda PA-C Work Phone: [facility] [place] Comment on above: Abscess of buttock ( Primary Dx); Encounter for immunization Start: 08-04-2022 ambulatory Humberto payne MD Work Phone: [facility] [place] Comment on above: Pain management Start: 08-04-2022 Follow-up encounter Humberto Jackson MD Work Phone: [facility] [place] Comment on above: Need to schedule [facility] Start: 08-04-2022 End: 08-04-2022 Patient encounter procedure Emma Sheets JAVA MANAGER.[employer] Work Phone: [facility] Comment on above: Cellulitis of skin ( Primary Dx); Abscess Start: 07-20-2022 End: 07-20-2022 Nursing evaluation of patient and report Mi Nurse Work Phone: [facility] [place] Comment on above: Need for vaccination (Primary Dx) Start: 06-10-2022 End: 06-10-2022 Nursing evaluation of patient and report Mi Nurse Work Phone: [facility] [place] Comment on above: Need for vaccination (Primary Dx) Start: 06-07-2022 End: 06-07-2022 Patient encounter procedure Torres Monaco JAVA MANAGER.[employer] Work Phone: Endocrinology Comment on above: Type 2 diabetes bernardo itus without complication, without long- term current use of insulin (HCC) (Primary Dx); Dyslipidemia; Class 2 severe obesity with serious comorbidity and body mass index (BMI) of 37.0 to 37.9 in adult, unspecified obesity type (HCC) Start: 06-05-2022 Telephone encounter Humberto Jackson MD Work Phone: [facility] Comment on above: Results Start: 06-04-2022 End: 06-04-2022 Ophthalmic examination and evaluation Humberto Jackson MD Work Phone: [facility] Start: 06-04-2022 End: 06-04-2022 Patient encounter procedure Humberto Jackson MD Work Phone: [facility] Comment on above: Type 2 diabetes bernardo [...] encounter status Humberto Jackson MD Work Phone: [facility] Start: 04-27-2022 Refill Kenyatta Livingston on PA-C Work Phone: [facility] Comment on above: Refill Request Ozempic Start: 03-04-2022 End: 03-04-2022 Patient encounter procedure Torres Monaco APRN.CNP Work Phone: Endocrinology Comment on above: Type 2 diabetes bernardo itus without complication, without long- term current use of insulin (HCC) (Primary Dx); Dyslipidemia; Class 2 severe obesity with serious comorbidity and body mass index (BMI) of 39.0 to 39.9 in adult, unspecified obesity type (HCC) Start: 01-31-2022 Refill Torres lentz APRN.[employer] Work Phone: Endocrinology Comment on above: Refill Request Start: 01-05-2022 Refill Humberto payne MD Work Phone: [facility] [facility] Comment on above: Refill Request Start: 12-03-2021 Ophthalmic examinati on and evaluation Humberto Jackson MD Work Phone: [facility] Start: 10-15-2021 End: 10-15-2021 Subsequent hospital visit by physician Xr Count Includes [facility] Work Phone: Radiology Comment on above: Cough [R05.9] Start: 12-22-2020 Patient encounter status Tierney Jackson MD Work Phone: [facility] Work Phone: Start: 10-20-2020 End: 10-20-2020 Subsequent hospital visit by physician Xr Count Includes [facility] Work Phone: Radiology Comment on above: Pain in both knees, unspecified chronicity [M25.561, M25.562] Start: 10-09-2017 Ambulatory Nelly Ortiz [facility] Start: 05-03-2017 Ambulatory Alejandro Calderon [facility] Procedures Date Procedure Procedure Detail Performing Clinician Start: 04-01-2025 Positron emission tomography with computed tomography Dr. Humberto Jackson MD Work Phone: Start: 03-27-[address] Tierney Jackson MD Work Phone: Start: 03-27-2025 Folic acid measurement, RBC Dr. Humberto Jackson MD Work Phone: Comment on above: Performed at: [address] [id number] Director: Omar Otero PhD, Phone: [phone] Start: 03-27-[address] Tierney Jackson MD Work Phone: Start: 03-27-2025 Total iron binding capacity measurement Dr. Humberto Jackson MD Work Phone: Start: 03-20-[address] Humberto Jackson MD Work Phone: Start: 03-20-[address] Humberto Jackson MD Work Phone: Start: 03-19-2025 Plain chest X-ray Dr. Humberto Jackson MD Work Phone: Start: 03-19-[address] Humberto Jackson MD Work Phone: Start: 03-19-2025 Computed tomography of abdomen and pelvis with contrast Dr. Humberto Jackson MD Work Phone: Start: 03-17-[address] Humberto Jackson MD Work Phone: Start: 03-17-[address] Tierney Jackson MD Work Phone: Start: 03-17-2025 Serum inorganic phosphate measurement Dr. Humberto Jackson MD Work Phone: Start: 03-16-2025 Measurement of occult blood in stool specimen using immunoassay Dr. Humberto Jackson MD Work Phone: Start: 03-16-2025 Computed tomography of abdomen and pelvis with intravenous contrast Dr. Humberto Jackson MD Work Phone: Start: 03-16-2025 Plain chest X-ray Dr. Humberto Jackson MD Work Phone: Start: 03-16-[address] Tierney Jackson MD Work Phone: Start: 03-16-[address] Tierney Jackson MD Work Phone: Start: 03-16-2025 Total iron binding capacity measurement Dr. Humberto Jackson MD Work Phone: Start: 12-30-2024 Radiologic exam chest 2 views Humberto Jackson MD Work Phone: Start: 12-11-2024 Mri brain brain stem w/o w/contrast material Humberto Jackson MD Work Phone: Start: 12-03-2024 Us breast uni real time with image limited Humberto Jackson MD Work Phone: Start: 12-03-2024 Digital breast tomosynthesis bilateral Humberto Jackson MD Work Phone: Start: 05-21-2024 Radex shoulder complete minimum 2 views Dominik Judge JAVA MANAGER.[employer] W[employer]ER Work Phone: Start: 01-31-2024 Us soft tissue head & neck real time imge docm Jacob Prado MD Work Phone: Start: 01-17-2024 Hemoglobin A1c/Hemoglobin.total in Blood [facility] JAVA MANAGER.[employer]IP[employer]IL W[employer]ER Work Phone: Start: 12-06-2023 PFIZER-BIONTVM Discovery COVID-19 VACCINE (2022- SEASON) AGE 12+ YR Humberto Jackson MD Work Phone: Start: 10-27-2023 XR FOOT RIGHT 3+ VIEWS JARVIS BABAA Start: 10-27-2023 Radex foot complete minimum 3 views Jarvis Babaa DO Work Phone: Start: 04-14-2023 Incision and drainage of perirectal abscess Dr. Humberto Jackson Work Phone: Start: 04-14-2023 CT of pelvis with contrast Dr. Humberto Jackson Work Phone: Start: 04-14-2023 Investigation of transfusion reaction Dr. Humberto Jackson Work Phone: Start: 01-27-2023 Hemoglobin A1c/Hemoglobin.total in Blood Torres Brendac JAVA MANAGER.[employer]IP[employer] W[employer]ER Work Phone: Start: 12-07-2022 Drug tst prsmv instrmnt chem analyzers pr date Humberto Jackson MD Work Phone: Start: 08-30-2022 Gluc bld gluc mntr dev cleared fda spec home use Johanna Bliss MD Work Phone: Start: 08-30-2022 Colonoscopy flx dx w/collj spec when pfrmd Johanna Bliss MD Work Phone: Start: 08-30-2022 Colonoscopy Torres Joselyn JAVA MANAGER.[employer] W[employer]ER Work Phone: Start: 08-11-2022 INFLUENZA VACCINE QUADRIVALENT 6 MO - 64 YRS IM Kenyatta Castaneda PA-C Work Phone: Start: 08-11-2022 PFIZER-BIONTECH COVID-19 BIVALENT BOOSTER VACCINE, AGE 12+ YR Kenyatta Castaneda PA-C Work Phone: Start: 03-04-2022 Hemoglobin A1c/Hemoglobin.total in Blood Torres Monaco JAVA MANAGER.[employer]IP[employer] W[employer]ER Work Phone: Start: 10-15-2021 Radiologic exam chest 2 views Kenyatta link PA-C Work Phone: Start: 10-20-2020 Radiologic exam knee complete 4/more views Alejandro Acosta MD Work Phone: Start: 08-16-2017 Colonoscopy Humberto Jackson MD Work Phone: History of appendectomy Hx of appendectom y Dr. Humberto Jackson Work Phone: Comment on above: 2001 History of tonsillectomy Hx of tonsillect sara Dr. Humberto Jackson Work Phone: Comment on above: 1977 Plan of Treatment Date Care Activity Detail Author Start: 12-14-2039 PNEUMOCOCCAL (3 - PPSV23 if available, else PCV20) PNEUMOCOCCAL (3 - PPSV23 if available, else PCV20) [facility] Start: 12-14-2039 PNEUMOCOCCAL (3 - PPSV23 or PCV20) PNEUMOCOCCAL (3 - PPSV23 or PCV20) [facility] Start: 12-14-2039 Pneumococcal vaccination [facility] Start: 04-13-2031 DTaP/Tdap/Td Vaccines (3 - Td or Tdap) DTaP/Tdap/Td Vaccines (3 - Td or Tdap) [facility] Start: 04-13-2031 Urine microalbumin profile [facility] Start: 12-06-2028 Pneumococcal vaccination Pneumococcal Vaccine (3 of 3 - PCV20 or PCV21) [facility] Start: 12-06-2028 Pneumococcal Vaccine: 50+ (3 of 3 - PCV20 or PCV21) Pneumococcal Vaccine: 50+ (3 of 3 - PCV20 or PCV21) [facility] Start: 08-30-2027 Colonoscopy COLONOSCOPY [facility] Start: 08-30-2027 COLORECTAL CANCER SCREENING COLORECTAL CANCER SCREENING [facility] Start: 08-30-2027 Screening for malignant neoplasm of colon [facility] Start: 04-04-2026 Annual PCP Team Chronic Disease Visit Annual PCP Team Chronic Disease Visit [facility] Start: 03-06-2026 Annual PCP Team Chronic Disease Visit Annual PCP Team Chronic Disease Visit [facility] Start: 01-21-2026 Annual PCP Team Chronic Disease Visit Annual PCP Team Chronic Disease Visit [facility] Start: 12-30-2025 Annual PCP Team Chronic Disease Visit Annual PCP Team Chronic Disease Visit [facility] Start: 12-30-2025 Diabetic foot examination Diabetic Foot Exam [facility] Start: 12-30-2025 Shingrix Vaccine (1 of 2) Shingrix Vaccine (1 of 2) [facility] Comment on above: Postponed from 2024 (Declined at t his time) Start: 12-20-2025 Annual PCP Team Chronic Disease Visit Annual PCP Team Chronic Disease Visit [facility] Start: 12-20-2025 Hepatitis B surface antibody level LDL Cholesterol [facility] Start: 11-22-2025 Annual PCP Team Chronic Disease Visit Annual PCP Team Chronic Disease Visit [facility] Start: 10-14-2025 Annual PCP Team Chronic Disease Visit Annual PCP Team Chronic Disease Visit [facility] Start: 10-14-2025 Hepatitis B surface antibody level LDL Cholesterol [facility] Start: 09-17-2025 Annual PCP Team Chronic Disease Visit Annual PCP Team Chronic Disease Visit [facility] Start: 08-19-2025 Annual PCP Team Chronic Disease Visit Annual PCP Team Chronic Disease Visit [facility] Start: 07-03-2025 End: 07-03-2025 Patient encounter procedure [facility] Comment on above: 6 month follow up follow up after MRI done 06/30 Start: 06-30-2025 End: 06-30-2025 Patient encounter procedure 06/30/2025 8:00 AM EDT Appointment Radiology [address] [place] [id number] MRI PITUITARY WO/W IVCON Radiology Comment on above: MRI PITUITARY WO/W IVCON Start: 06-20-2025 End: 09-19-2025 CBC W Auto Differential panel - Blood COMPLETE BLOOD COUNT AND DIFFERENTIAL Lab Routine Type 2 diabetes mellitus without complication, without long-term current use of insulin (HCC) Anemia, unspecified type Expected: 06/20/2025, Expires: 09/19/2025 [facility] Comment on above: Expected: 06/20/2025, Expires: Start: 06-20-2025 End: 09-19-2025 Hepatic function 2000 panel - Serum or Plasma HEPATIC FUNCTION PNL Lab Routine Type 2 diabetes mellitus without complication, without long-term current use of insulin (HCC) Dyslipidemia Fatty liver Expected: 06/20/2025, Expires: 09/19/2025 [facility] Comment on above: Expected: 06/20/2025, Expires: Start: 06-20-2025 End: 09-19-2025 LIPID PANEL, NONFASTING LIPID PANEL, NONFASTING Lab Routine Type 2 diabetes mellitus without complication, without long-term current use of insulin (HCC) Dyslipidemia Fatty liver Expected: 06/20/2025, Expires: 09/19/2025 [facility] Comment on above: Expected: 06/20/2025, Expires: Start: 06-06-2025 Annual PCP Team Chronic Disease Visit Annual PCP Team Chronic Disease Visit [facility] Start: 05-21-2025 Annual PCP Team Chronic Disease Visit Annual PCP Team Chronic Disease Visit [facility] Start: 05-21-2025 Hepatitis B surface antibody level LDL Cholesterol [facility] Start: 05-08-2025 End: 05-08-2025 Patient encounter procedure 05/08/2025 8:40 AM EDT Office Visit Family Samir Arevalo [address] [place] [address] Humberto Jackson MD [address] [place], [place] [address] [address] 1 mo f/u Family Samir Arevalo Comment on above: 1 mo f/u Start: 04-30-2025 End: 04-30-2025 Patient encounter procedure 04/30/2025 11:30 AM EDT Office Visit Endocrinology [address] [address] Torres Monaco APRN.[employer]IP[employer] COIL WINDER [address] [address] follow up Endocrinology Comment on above: follow up Start: 04-17-2025 End: 04-17-2025 Patient encounter procedure 04/17/2025 12:30 PM EDT Office Visit Vasculary Surgery [address] [place] [address] Tachycardia [R00.0]; Lightheadedness [R42] [facility] Comment on above: Tachycardia [R00.0]; Lightheadedness [R4 2] Start: 04-17-2025 End: 04-17-2025 Patient encounter procedure 04/17/2025 8:30 AM EDT Office Visit [facility] [address] [place] [address] Jenn Bowman MD [address] [address] HBC-f/u-UGI, EGD w/Patino & Mano [facility] Comment on above: HBC-f/u-UGI, EGD w/Patino & Mano Start: 04-04-2025 End: 02-06-2026 EGD - THERAPEUTIC, EUS, OR TUBE INTERVENTIONS EGD - THERAPEUTIC, EUS, OR TUBE INTERVENTIONS Endoscopy Routine Gastroesophageal reflux disease, unspecified whether esophagitis present Expected: 04/04/2025, Expires: 02/06/2026 [facility] Comment on above: Expected: 04/04/2025, Expires: Start: 04-04-2025 End: 07-04-2025 Iron and Iron binding capacity panel - Serum or Plasma [facility] Work Phone: Comment on above: Expected: 04/04/2025, Expires: Start: 04-04-2025 End: 04-04-2025 Admission to same day surgery center [facility]MON[facility] Comment on above: ESOPHAGEAL MANOMETRY Start: 04-04-2025 End: 04-04-2025 Esophageal motility study w/interp&rpt ESOPHAGEAL MANOMETRY Gastroesophageal reflux disease, unspecified whether esophagitis present Esophageal dysphagia 04/04/2025 9:00 AM EDT [facility] Start: 04-04-2025 Subsequent hospital visit by physician [facility] RAY[facility]D Comment on above: Gastroesophageal reflux disease, unspeci fied whether esophagitis present [K21.9], Esophageal dysphagia [R13.19] Start: 04-04-2025 End: 04-04-2025 Patient encounter procedure [facility] Comment on above: Follow up hospital stay and med eval Start: 04-02-2025 End: 04-02-2025 Patient encounter procedure [facility] Endoscopy Start: 03-27-2025 Cobalamin (Vitamin B12) [Mass/volume] in Serum or Plasma [facility] Start: 03-27-2025 Comprehensive metabolic 2000 panel - Serum or Plasma [facility] Start: 03-27-2025 Ferritin [Mass/volume] in Serum or Plasma [facility] Start: 03-27-2025 Folic acid measurement, RBC [facility] Start: 03-27-2025 Iron and Iron binding capacity panel - Serum or Plasma [facility] Start: 03-27-2025 Patient referral [facility] Work Phone: Start: 03-27-2025 End: 03-27-2025 Patient encounter procedure 03/27/2025 8:00 AM EDT Appointment Radiology [address] [place] [address] Gastroesophageal reflux disease, unspecified whether esophagitis present [K21.9] Radiology Comment on above: Gastroesophageal reflux disease, unspeci fied whether esophagitis present [K21.9] Start: 03-22-2025 Hemoglobin A1c measurement HbA1C [facility] Start: 03-21-2025 Patient discharge [facility] Start: 03-20-2025 End: 03-20-2025 Patient encounter procedure 03/20/2025 8:00 AM EDT Office Visit Cardiology [address] [place] [address] Tachycardia [R00.0]; Lightheadedness [R42] Cardiology Comment on above: Tachycardia [R00.0]; Lightheadedness [R4 2] Start: 03-19-2025 [facility] Start: 03-18-2025 Administration of blood product [facility] Start: 03-17-2025 [facility] Start: 03-17-2025 Application of intermittent pneumatic compression device [facility] Start: 03-17-2025 Serum inorganic phosphate measurement [facility] Start: 03-17-2025 [facility] Start: 03-16-2025 [facility] Start: 03-16-2025 Following clinical pathway protocol [facility] Start: 03-16-2025 Ambulation without limitation [facility] Start: 03-16-2025 Assessment of risk of venous thromboembolism [facility] Start: 03-16-2025 Catheterization of vein [facility] Start: 03-16-2025 Continuous positive airway pressure ventilation treatment [facility] Start: 03-16-2025 Documentation procedure [facility] Start: 03-16-2025 Incentive spirometry [facility] Start: 03-16-2025 Inhalation therapy procedure [facility] Start: 03-16-2025 Insertion of catheter into peripheral vein [facility] Start: 03-16-2025 Measuring intake and output [facility] Start: 03-16-2025 Oxygen therapy [facility] Start: 03-16-2025 Patient referral to [facility] Start: 03-16-2025 Providing care according to standard [facility] Start: 03-16-2025 Referral to gastroenterology service [facility] Start: 03-16-2025 Referral to service [facility] Start: 03-16-2025 End: 03-16-2025 [facility] Start: 03-16-2025 Verification routine [facility] Start: 03-16-2025 Admission procedure [facility] Start: 03-16-2025 Administration of blood product [facility] Start: 03-16-2025 Hepatic function panel [facility] Start: 03-16-2025 End: 03-17-2025 [facility] Start: 03-16-2025 Patient referral to dietitian [facility] Start: 03-10-2025 End: 06-09-2025 CBC W Auto Differential panel - Blood COMPLETE BLOOD COUNT AND DIFFERENTIAL Lab Routine Iron deficiency anemia, unspecified iron deficiency anemia type Expected: 03/10/2025, Expires: 06/09/2025 [facility] Work Phone: Comment on above: Expected: 03/10/2025, Expires: Start: 03-10-2025 End: 06-09-2025 Iron and Iron binding capacity panel - Serum or Plasma IRON AND TIBC Lab Routine Iron deficiency anemia, unspecified iron deficiency anemia type Expected: 03/10/2025, Expires: 06/09/2025 [facility] Comment on above: Expected: 03/10/2025, Expires: Start: 03-10-2025 End: 03-10-2025 Patient encounter procedure 03/10/2025 8:30 AM EDT Office Visit [facility] [address] [facility] [address] [place], [place] [id number] Nelda Quigley APRN.MULTIP[employer] COIL WINDER [address] [place], [place] [id number] Anemia, unspecified type. Hgb 9.2 Last colonoscopy 08/30. [facility] General Surgery Comment on above: Anemia, unspecified type. Hgb 9.2 Last c olonoscopy 08/30. [facility] Start: 03-06-2025 End: 06-05-2025 Basic metabolic 2000 panel - Serum or Plasma [facility] Comment on above: Expected: 03/06/2025, Expires: Start: 03-06-2025 End: 06-05-2025 CBC W Auto Differential panel - Blood [facility] Comment on above: Expected: 03/06/2025, Expires: Start: 03-06-2025 End: 06-05-2025 Thyrotropin [Units/volume] in Serum or Plasma [facility] Comment on above: Expected: 03/06/2025, Expires: Start: 02-26-2025 End: 02-26-2025 Patient encounter procedure 02/26/2025 9:30 AM EDT OT/PT/Speech Visit [facility] Therapy [address] [place] [address] Dat Zhang, PT [address] [place] [address] Adhesive capsulitis of right shoulder [M75.01] [facility] Comment on above: Adhesive capsulitis of right shoulder [M 75.01] Start: 02-22-2025 Glaucoma screening Dilated Retinal Exam [facility] Start: 02-21-2025 End: 02-21-2025 Patient encounter procedure 02/21/2025 1:30 PM EDT Office Visit Orthopedics [address] [facility] [address] [place] [address] Vikash Booth MD [address] [facility]. [facility] [address] [place] [address] Adhesive capsulitis of right shoulder Orthopedics Comment on above: Adhesive capsulitis of right shoulder Start: 02-17-2025 End: 02-17-2025 Patient encounter procedure Orthopaedics Comment on above: Adhesive capsulitis of right shoulder [M 75.01] Adhesive capsulitis of right shoulder Start: 02-06-2025 End: 02-06-2025 ambulatory 02/06/2025 2:30 PM EDT [facility] Endocrinology [address] [place] [address] Jana Babcock MD [address] [place] [address] Time Frame: Next available Endocrinology Comment on above: Time Frame: Next available Start: 01-30-2025 End: 05-01-2025 CBC W Auto Differential panel - Blood COMPLETE BLOOD COUNT AND DIFFERENTIAL Lab Routine Anemia, unspecified type Expected: 01/30/2025, Expires: 05/01/2025 [facility] Comment on above: Expected: 01/30/2025, Expires: Start: 01-30-2025 End: 05-01-2025 Cobalamin (Vitamin B12) [Mass/volume] in Serum or Plasma VITAMIN B12 Lab Routine Anemia, unspecified type Expected: 01/30/2025, Expires: 05/01/2025 [facility] Comment on above: Expected: 01/30/2025, Expires: Start: 01-30-2025 End: 05-01-2025 Ferritin [Mass/volume] in Serum or Plasma FERRITIN Lab Routine Anemia, unspecified type Expected: 01/30/2025, Expires: 05/01/2025 [facility] Comment on above: Expected: 01/30/2025, Expires: Start: 01-30-2025 End: 05-01-2025 Folate [Mass/volume] in Serum or Plasma FOLATE, SERUM Lab Routine Anemia, unspecified type Expected: 01/30/2025, Expires: 05/01/2025 [facility] Comment on above: Expected: 01/30/2025, Expires: Start: 01-30-2025 End: 05-01-2025 Iron and Iron binding capacity panel - Serum or Plasma IRON AND TIBC Lab Routine Anemia, unspecified type Expected: 01/30/2025, Expires: 05/01/2025 [facility] Work Phone: Comment on above: Expected: 01/30/2025, Expires: Start: 01-21-2025 End: 01-21-2025 Patient encounter procedure 01/21/2025 11:20 AM EDT Office Visit Family Samir [place]valo [address] [place] [address] Humberto Jackson MD [address] [facility] [place] [address] 2 week follow up Family Samir Arevalo Comment on above: 2 week follow up Start: 01-12-2025 Hemoglobin A1c measurement HbA1C [facility] Start: 01-06-2025 End: 01-06-2025 Patient encounter procedure 01/06/2025 2:30 PM EDT [address] [place] [id number] Lauren Mckeon MD [address] [place], [place] [address] [place] [address] Gynecomastia [N62] [facility] Comment on above: Gynecomastia [N62] Start: 01-06-2025 End: 04-07-2025 Corticotropin [Mass/volume] in Plasma ACTH BLD Lab Routine Gynecomastia, male Expected: 01/06/2025, Expires: 04/07/2025 [facility] Work Phone: Comment on above: Expected: 01/06/2025, Expires: Start: 01-06-2025 End: 04-07-2025 INSULIN LIK GR FAC I INSULIN LIK GR FAC I Lab Routine Gynecomastia, male Expected: 01/06/2025, Expires: 04/07/2025 [facility] Comment on above: Expected: 01/06/2025, Expires: Start: 01-06-2025 End: 04-07-2025 Prolactin [Mass/volume] in Serum or Plasma PROLACTIN Lab Routine Gynecomastia, male Expected: 01/06/2025, Expires: 04/07/2025 [facility] Comment on above: Expected: 01/06/2025, Expires: Start: 01-04-2025 End: 01-04-2025 Patient encounter procedure 01/04/2025 8:40 AM EDT Appointment Radiology [address] [place] [address] Acute pain of right shoulder [M25.511] Radiology Comment on above: Acute pain of right shoulder [M25.511] Start: 12-30-2024 End: 12-30-2024 Patient encounter procedure Family Medicine [facility] Comment on above: physical Start: 12-18-2024 End: 12-18-2024 ambulatory 12/18/2024 8:30 AM EDT Formerly [facility] [address] [address] David Lindsey MD [address] [place] [address] Gynecomastia, male [N62] [facility] Comment on above: Gynecomastia, male [N62] Start: 2024 Shingrix Vaccine (1 of 2) Shingrix Vaccine (1 of 2) [facility] Start: 2024 Zoster Vaccines (1 of 2) Zoster Vaccines (1 of 2) [facility] Start: 12-11-2024 End: 12-11-2024 Patient encounter procedure 12/11/2024 10:00 AM EST Appointment Radiology [address] [place] [address] Gynecomastia, male [N62] Radiology Comment on above: Gynecomastia, male [N62] Start: 12-07-2024 End: 03-08-2025 CBC W Auto Differential panel - Blood COMPLETE BLOOD COUNT AND DIFFERENTIAL Lab Routine GERD without esophagitis Expected: 12/07/2024, Expires: 03/08/2025 [facility] Comment on above: Expected: 12/07/2024, Expires: Start: 12-07-2024 End: 03-08-2025 Cobalamin (Vitamin B12) [Mass/volume] in Serum or Plasma VITAMIN B12 Lab Routine Medication management Expected: 12/07/2024, Expires: 03/08/2025 [facility] Comment on above: Expected: 12/07/2024, Expires: Start: 12-07-2024 End: 03-08-2025 Comprehensive metabolic 2000 panel - Serum or Plasma COMPREHENSIVE METABOLIC PANEL Lab Routine Type 2 diabetes mellitus without complication, without long-term current use of insulin (HCC) Expected: 12/07/2024, Expires: 03/08/2025 [facility] Comment on above: Expected: 12/07/2024, Expires: Start: 12-07-2024 End: 03-08-2025 Hemoglobin A1c in Blood HEMOGLOBIN A1C Lab Routine Type 2 diabetes mellitus without complication, without long-term current use of insulin (HCC) Expected: 12/07/2024, Expires: 03/08/2025 [facility] Comment on above: Expected: 12/07/2024, Expires: Start: 12-07-2024 End: 03-08-2025 LIPID PANEL, NONFASTING LIPID PANEL, NONFASTING Lab Routine Dyslipidemia Expected: 12/07/2024, Expires: 03/08/2025 [facility] Comment on above: Expected: 12/07/2024, Expires: Start: 12-07-2024 End: 03-08-2025 Magnesium [Mass/volume] in Serum or Plasma MAGNESIUM Lab Routine Medication management Expected: 12/07/2024, Expires: 03/08/2025 [facility] Comment on above: Expected: 12/07/2024, Expires: Start: 12-07-2024 End: 03-08-2025 Thyrotropin [Units/volume] in Serum or Plasma THYROID STIMULATING HORMONE Lab Routine Multiple thyroid nodules Expected: 12/07/2024, Expires: 03/08/2025 [facility] Comment on above: Expected: 12/07/2024, Expires: Start: 12-07-2024 End: 03-08-2025 Urinalysis complete panel - Urine URINALYSIS, WITH MICROSCOPIC Lab Routine Type 2 diabetes mellitus without complication, without long-term current use of insulin (HCC) Expected: 12/07/2024, Expires: 03/08/2025 [facility] Comment on above: Expected: 12/07/2024, Expires: Start: 12-06-2024 Annual PCP Team Chronic Disease Visit Annual PCP Team Chronic Disease Visit [facility] Start: 12-06-2024 Hepatitis B surface antibody level LDL Cholesterol [facility] Start: 12-03-2024 End: 12-03-2024 Patient encounter procedure Mammogram Comment on above: Dx: Subareolar mass of right breast [N63 .41] COMP LUMP RIGHT/DYLON DIAGOSTIC Start: 11-26-2024 End: 02-25-2025 Basic metabolic 2000 panel - Serum or Plasma BASIC METABOLIC PANEL Lab Routine Medication management Expected: 11/26/2024, Expires: 02/25/2025 [facility] Comment on above: Expected: 11/26/2024, Expires: Start: 11-26-2024 End: 02-25-2025 CREATININE BLD CREATININE BLD Lab Routine Medication management Expected: 11/26/2024, Expires: 02/25/2025 [facility] Comment on above: Expected: 11/26/2024, Expires: Start: 11-22-2024 End: 02-21-2025 Choriogonadotropin.beta subunit [Units/volume] in Serum or Plasma [facility] Comment on above: Expected: 11/22/2024, Expires: Start: 11-22-2024 End: 02-21-2025 Estradiol (E2) [Mass/volume] in Serum or Plasma [facility] Comment on above: Expected: 11/22/2024, Expires: Start: 11-22-2024 End: 02-21-2025 Follitropin [Units/volume] in Serum or Plasma [facility] Comment on above: Expected: 11/22/2024, Expires: Start: 11-22-2024 End: 02-21-2025 Lutropin [Units/volume] in Serum or Plasma [facility] [employer] Work Phone: Comment on above: Expected: 11/22/2024, Expires: Start: 11-22-2024 End: 02-21-2025 Prolactin [Mass/volume] in Serum or Plasma [facility] Comment on above: Expected: 11/22/2024, Expires: Start: 11-22-2024 End: 02-21-2025 Testosterone [Mass/volume] in Serum or Plasma [facility] Comment on above: Expected: 11/22/2024, Expires: Start: 11-22-2024 End: 02-21-2025 Thyrotropin [Units/volume] in Serum or Plasma [facility] Comment on above: Expected: 11/22/2024, Expires: Start: 11-22-2024 End: 02-21-2025 Thyroxine (T4) free [Mass/volume] in Serum or Plasma [facility] Comment on above: Expected: 11/22/2024, Expires: Start: 11-22-2024 End: 11-22-2024 Patient encounter procedure [facility] Comment on above: right nipple hurts Contacted patient du e to provider being absent patient is aware of appointment needing to be rescheduled- Start: 10-25-2024 End: 10-25-2024 Patient encounter procedure 10/25/2024 8:15 AM EST Appointment Radiology [address] [place] [address] Elevated alkaline phosphatase level [R74.8] Radiology Comment on above: Elevated alkaline phosphatase level [R74 .8] Start: 10-21-2024 End: 10-21-2024 Patient encounter procedure 10/21/2024 8:00 AM EST Office Visit [facility] [address] [place] [address] Erica Mejia, OD [address] [place] [address] for diabetic eye exam Ophthalmology Comment on above: for diabetic eye exam Start: 10-20-2024 Glaucoma screening Dilated Retinal Exam [facility] Start: 10-17-2024 End: 01-16-2025 ALK PHOS ISOENZYM BL ALK PHOS ISOENZYM BL Lab Routine Elevated alkaline phosphatase level Expected: 10/17/2024, Expires: 01/16/2025 [facility] Work Phone: Comment on above: Expected: 10/17/2024, Expires: Start: 10-17-2024 End: 01-16-2025 Gamma glutamyl transferase [Enzymatic activity/volume] in Serum or Plasma GGT Lab Routine Elevated alkaline phosphatase level Expected: 10/17/2024, Expires: 01/16/2025 [facility] Comment on above: Expected: 10/17/2024, Expires: Start: 10-17-2024 End: 01-16-2025 Mitochondria Ab [Presence] in Serum by Immunofluorescence MITOCHONDRIAL M2 IGG SERUM Lab Routine Elevated alkaline phosphatase level Expected: 10/17/2024, Expires: 01/16/2025 [facility] Comment on above: Expected: 10/17/2024, Expires: Start: 10-14-2024 End: 10-14-2024 Patient encounter procedure 10/14/2024 1:40 PM EST Office Visit [facility] [address] [facility] [place] [address] Humberto Jackson MD [address] [place] [address] Increased GERD [facility] Comment on above: Increased GERD Start: 09-17-2024 End: 09-17-2024 Patient encounter procedure 09/17/2024 9:20 AM EST Office Visit [facility] [address] [place] [address] Humberto Jackson MD [address] [place] [address] 4 week follow up ADHD/depression [facility] Comment on above: 4 week follow up ADHD/depression Start: 09-05-2024 End: 12-05-2024 Hemoglobin A1c in Blood HEMOGLOBIN A1C Lab Routine Type 2 diabetes mellitus without complication, without long-term current use of insulin (HCC) Expected: 09/05/2024, Expires: 12/05/2024 [facility] Comment on above: Expected: 09/05/2024, Expires: Start: 09-05-2024 End: 12-05-2024 LIPID PANEL, NONFASTING LIPID PANEL, NONFASTING Lab Routine Dyslipidemia Expected: 09/05/2024, Expires: 12/05/2024 [facility] Work Phone: Comment on above: Expected: 09/05/2024, Expires: Start: 08-26-2024 End: 08-26-2024 ambulatory 08/26/2024 10:30 AM EST OT/PT/Speech Visit [facility] [address] [place], [place] [id number] Karla Patel PT [address] [place], [place] [id number] Acute pain of right shoulder [M25.511] [facility] Comment on above: Acute pain of right shoulder [M25.511] Start: 08-21-2024 Hemoglobin A1c measurement HbA1C [facility] Start: 08-19-2024 End: 08-19-2024 ambulatory 08/19/2024 9:30 AM EST OT/PT/Speech Visit [facility] [address] [place] [address] Golias, Karla, PT [address] [place] [address] Acute pain of right shoulder [M25.511] [facility] Comment on above: Acute pain of right shoulder [M25.511] Start: 08-12-2024 End: 08-12-2024 ambulatory 08/12/2024 8:45 AM EST OT/PT/Speech Visit [facility] [address] [place] [address] Ruby Dexter, CORE MOUNTER [address] [place] [address] Acute pain of right shoulder [M25.511] [facility] Comment on above: Acute pain of right shoulder [M25.511] Start: 08-11-2024 Hepatitis B screening Urine Albumin:Creatinine Ratio [facility] Start: 08-11-2024 Hepatitis B surface antibody level LDL Cholesterol [facility] Start: 08-05-2024 End: 08-05-2024 ambulatory 08/05/2024 7:45 AM EDT OT/PT/Speech Visit [facility] [address] [place] [address] Golias, Karla, PT [address] [place] [address] Acute pain of right shoulder [M25.511] [facility] Comment on above: Acute pain of right shoulder [M25.511] Start: 07-29-2024 End: 07-29-2024 ambulatory 07/29/2024 9:30 AM EDT OT/PT/Speech Visit [facility] [address] [place] [address] GoliasKarla, PT [address] [place] [address] M25.511 (ICD-10-CM) - Acute pain of right shoulder [facility] Comment on above: M25.511 (ICD-10-CM) - Acute pain of righ t shoulder Start: 07-22-2024 End: 07-22-2024 ambulatory 07/22/2024 9:30 AM EDT OT/PT/Speech Visit [facility] [address] [place] [address] GoliasKarla, PT [address] [place] [address] M25.511 (ICD-10-CM) - Acute pain of right shoulder [facility] Physical Therapy Comment on above: M25.511 (ICD-10-CM) - Acute pain of righ t shoulder Start: 07-07-2024 3 comp foot exam completed Diabetic Foot Exam [facility] Start: 07-07-2024 Diabetic foot examination Diabetic Foot Exam [facility] Start: 07-05-2024 End: 07-05-2024 ambulatory 07/05/2024 8:45 AM EDT OT/PT/Speech Visit [facility] [address] [place] [address] Ruby Dexter, CORE MOUNTER [address] [place] [address] M25.511 (ICD-10-CM) - [facility] above: M25.511 (ICD-10-CM) - Acute pain of righ t shoulder Start: 06-28-2024 End: 06-28-2024 ambulatory 06/28/2024 8:00 AM EDT OT/PT/Speech Visit [facility] [address] [place] [address] Ruby Dexter, CORE MOUNTER [address] [place] [address] M25.511 (ICD-10-CM) - Acute pain of right shoulder [facility] Comment on above: M25.511 (ICD-10-CM) - Acute pain of righ t shoulder Start: 06-12-2024 End: 06-12-2024 ambulatory 06/12/2024 9:00 AM EDT OT/PT/Speech Visit [facility] [address] [place] [address] Karla Patel, PT [address] [place] [address] Acute pain of right shoulder [M25.511] [facility] Comment on above: Acute pain of right shoulder [M25.511] Start: 06-09-2024 Influenza vaccination [facility] Start: 06-06-2024 End: 06-06-2024 Patient encounter procedure 06/06/2024 8:00 AM EDT Office Visit [facility] [address] [place], [place] [id number] Dominik Judge APRN.[employer] [address] [place], [place] [id number] 6 month follow up [facility] Comment on above: 6 month follow up Start: 05-21-2024 End: 08-20-2024 CBC W Auto Differential panel - Blood [facility] Comment on above: Expected: 05/21/2024, Expires: Start: 05-21-2024 End: 08-20-2024 Comprehensive metabolic 2000 panel - Serum or Plasma [facility] Comment on above: Expected: 05/21/2024, Expires: Start: 05-21-2024 End: 08-20-2024 Hemoglobin A1c in Blood [facility] Comment on above: Expected: 05/21/2024, Expires: Start: 05-21-2024 End: 08-20-2024 LIPID PANEL, NONFASTING [facility] Comment on above: Expected: 05/21/2024, Expires: Start: 05-21-2024 End: 08-20-2024 Thyrotropin [Units/volume] in Serum or Plasma [facility] Comment on above: Expected: 05/21/2024, Expires: 4 Start: 04-18-2024 End: 04-18-2024 Patient encounter procedure 04/18/2024 9:45 AM EDT Office Visit Endocrinology [address] [address] Torres Monaco, GHULAM.[employer] [address] [address] 3m follow up Endocrinology Comment on above: 3m follow up Start: 04-17-2024 Hemoglobin A1c measurement HbA1C [facility] Start: 04-14-2024 ANNUAL PCP TEAM CHRONIC DISEASE VISIT ANNUAL PCP TEAM CHRONIC DISEASE VISIT [facility] Start: 04-10-2024 ANNUAL PCP TEAM CHRONIC DISEASE VISIT ANNUAL PCP TEAM CHRONIC DISEASE VISIT [facility] Start: 01-17-2024 Hemoglobin A1c measurement HbA1C [facility] Start: 01-10-2024 ANNUAL PCP TEAM CHRONIC DISEASE VISIT ANNUAL PCP TEAM CHRONIC DISEASE VISIT [facility] Start: 12-10-2023 Hepatitis C antibody, confirmatory test DILATED RETINAL EXAM [facility] Start: 12-08-2023 ANNUAL PCP TEAM CHRONIC DISEASE VISIT ANNUAL PCP TEAM CHRONIC DISEASE VISIT [facility] Start: 12-08-2023 Hepatitis B surface antibody level LDL CHOLESTEROL [facility] Start: 10-06-2023 Hemoglobin A1c/Hemoglobin.total in Blood HbA1C [facility] Start: 08-17-2023 ANNUAL PCP TEAM CHRONIC DISEASE VISIT ANNUAL PCP TEAM CHRONIC DISEASE VISIT [facility] Start: 08-11-2023 End: 10-11-2023 ALBUMIN/CREAT RATIO RND UR ALBUMIN/CREAT RATIO RND UR Lab Routine Type 2 diabetes mellitus without complication, without long-term current use of insulin (HCC) Expected: 08/11/2023, Expires: 10/11/2023 [facility] Work Phone: Comment on above: Expected: 08/11/2023, Expires: 4 Start: 08-11-2023 ANNUAL PCP TEAM CHRONIC DISEASE VISIT ANNUAL PCP TEAM CHRONIC DISEASE VISIT [facility] Start: 08-11-2023 End: 10-11-2023 CBC W Auto Differential panel - Blood CBC + DIFF Lab Routine Type 2 diabetes mellitus without complication, without long-term current use of insulin (HCC) Expected: 08/11/2023, Expires: 10/11/2023 [facility] Work Phone: Comment on above: Expected: 08/11/2023, Expires: 4 Start: 08-11-2023 End: 10-11-2023 Comprehensive metabolic 2000 panel - Serum or Plasma COMP METABOLIC PANEL Lab Routine Migraine without aura and without status migrainosus, not intractable Type 2 diabetes mellitus without complication, without long-term current use of insulin (HCC) Expected: 08/11/2023, Expires: 10/11/2023 [facility] Work Phone: Comment on above: Expected: 08/11/2023, Expires: 4 Start: 08-11-2023 End: 10-11-2023 LIPID PANEL, NONFASTING LIPID PANEL, NONFASTING Lab Routine Dyslipidemia Expected: 08/11/2023, Expires: 10/11/2023 [facility] Work Phone: Comment on above: Expected: 08/11/2023, Expires: 4 Start: 08-11-2023 End: 10-11-2023 Urinalysis complete panel - Urine URINALYSIS, WITH MICROSCOPIC Lab Routine Type 2 diabetes mellitus without complication, without long-term current use of insulin (HCC) Expected: 08/11/2023, Expires: 10/11/2023 [facility] Work Phone: Comment on above: Expected: 08/11/2023, Expires: 4 Start: 06-09-2023 Covid-19 Vaccine () Covid-19 Vaccine () [facility] Start: 06-09-2023 Influenza vaccination INFLUENZA (#1) [facility] Start: 06-05-2023 Hepb vaccine adult 3 dose schedule for im use HEPATITIS B VACCINE, ADULT AGE 20+, IM Immunization/Injection Routine Need for vaccination Expected: 06/05/2023 (Approximate) [facility] Work Phone: Comment on above: Expected: 06/05/2023 (Approximate) Start: 06-04-2023 3 comp foot exam completed DIABETIC FOOT EXAM [facility] Start: 06-04-2023 ANNUAL PCP TEAM CHRONIC DISEASE VISIT ANNUAL PCP TEAM CHRONIC DISEASE VISIT [facility] Start: 06-04-2023 Hepatitis B screening URINE ALBUMIN:CREATININE RATIO [facility] Start: 06-04-2023 Hepatitis B surface antibody level LDL CHOLESTEROL [facility] Start: 04-28-2023 Hemoglobin A1c/Hemoglobin.total in Blood HBA1C [facility] Start: 04-15-2023 Patient discharge [facility] Start: 04-14-2023 Application of intermittent pneumatic compression device [facility] Start: 04-14-2023 Following clinical pathway protocol [facility] Start: 04-14-2023 [facility] Start: 04-14-2023 Admission procedure [facility] Start: 04-14-2023 Incision and drainage of perirectal abscess Incision & Drainage of Tressa-Rectal Absce (Not Applicable) [facility] Start: 04-14-2023 Anaerobic Culture Anaerobic Culture [facility] Start: 04-14-2023 Microbial culture, routine Wound Culture [facility] Start: 03-04-2023 3 comp foot exam [facility] Start: 01-19-2023 Hemoglobin A1c/Hemoglobin.total in Blood HBA1C [facility] Start: 12-18-2022 HEPATITIS B (3 of 3 - 19+ 3-dose series) HEPATITIS B (3 of 3 - 19+ 3-dose series) [facility] Start: 12-07-2022 End: 02-06-2023 LIPID PANEL, NONFASTING [facility] Work Phone: Comment on above: Expected: 12/07/2022, Expires: Start: 12-06-2022 Hepb vaccine adult 3 dose schedule for im use HEPATITIS B VACCINE, ADULT AGE 20+, IM Immunization/Injection Routine Expected: 12/06/2022 [facility] Work Phone: Comment on above: Expected: 12/06/2022 Start: 12-01-2022 Hepatitis C antibody, confirmatory test DILATED RETINAL EXAM [facility] Start: 10-15-2022 ANNUAL PCP TEAM CHRONIC DISEASE VISIT ANNUAL PCP TEAM CHRONIC DISEASE VISIT [facility] Start: 10-06-2022 COVID-19 Vaccine (3 - Booster for Chrissie series) COVID-19 Vaccine (3 - Booster for Chrissie series) [facility] Start: 09-30-2022 HEPATITIS B (3 of 3 - 3-dose series) HEPATITIS B (3 of 3 - 3-dose series) [facility] Start: 09-04-2022 Hemoglobin A1c/Hemoglobin.total in Blood HBA1C [facility] Start: 08-16-2022 Colonoscopy COLONOSCOPY [facility] Start: 08-16-2022 COLORECTAL CANCER SCREENING COLORECTAL CANCER SCREENING [facility] Start: 07-08-2022 HEPATITIS B (2 of 3 - 3-dose series) HEPATITIS B (2 of 3 - 3-dose series) [facility] Start: 07-07-2022 Hepb vaccine adult 3 dose schedule for im use HEPATITIS B VACCINE, ADULT AGE 20+, IM Immunization/Injection Routine Expected: 07/07/2022 [facility] Work Phone: Comment on above: Expected: 07/07/2022 Start: 06-09-2022 Influenza vaccination [facility] Start: 06-04-2022 End: 08-04-2022 ALBUMIN/CREAT RATIO RND UR ALBUMIN/CREAT RATIO RND UR Lab Routine Type 2 diabetes mellitus without complication, without long-term current use of insulin (HCC) Expected: 06/04/2022 (Approximate), Expires: 08/04/2022 [facility] Work Phone: Comment on above: Expected: 06/04/2022 (Approximate), Expi res: 08/04/2022 Start: 06-04-2022 End: 08-04-2022 Comprehensive metabolic 2000 panel - Serum or Plasma COMP METABOLIC PANEL Lab Routine Type 2 diabetes mellitus without complication, without long-term current use of insulin (HCC) Expected: 06/04/2022 (Approximate), Expires: 08/04/2022 [facility] Work Phone: Comment on above: Expected: 06/04/2022 (Approximate), Expi res: 08/04/2022 Start: 06-04-2022 End: 08-04-2022 Hemoglobin A1c/Hemoglobin.total in Blood [facility] Work Phone: Comment on above: Expected: 06/04/2022 (Approximate), Expi res: 08/04/2022 Start: 06-04-2022 End: 08-04-2022 LIPID PANEL BASIC LIPID PANEL BASIC Lab Routine Type 2 diabetes mellitus without complication, without long-term current use of insulin (HCC) Dyslipidemia Expected: 06/04/2022 (Approximate), Expires: 08/04/2022 [facility] Work Phone: Comment on above: Expected: 06/04/2022 (Approximate), Expi res: 08/04/2022 Start: 06-04-2022 End: 08-04-2022 Thyrotropin [Units/volume] in Serum or Plasma TSH BLD Lab Routine Type 2 diabetes mellitus without complication, without long-term current use of insulin (HCC) Expected: 06/04/2022 (Approximate), Expires: 08/04/2022 [facility] Work Phone: Comment on above: Expected: 06/04/2022 (Approximate), Expi res: 08/04/2022 Start: 12-22-2021 3 comp foot exam completed DIABETIC FOOT EXAM [facility] Start: 12-22-2021 Hepatitis B screening URINE ALBUMIN:CREATININE RATIO [facility] Start: 12-22-2021 Hepatitis B surface antibody level LDL CHOLESTEROL [facility] Start: 10-13-2021 COVID-19 VACCINE (3 - Booster for Chrissie series) COVID-19 VACCINE (3 - Booster for Chrissie series) [facility] Start: 06-24-2021 Hemoglobin A1c/Hemoglobin.total in Blood HBA1C [facility] Start: 06-09-2021 Influenza vaccination INFLUENZA (#1) [facility] Start: 12-14-2019 COLOGUARD (FIT-DNA) COLOGUARD (FIT-DNA) [facility] Start: 12-14-[address] COLONOGRAPHY [facility] Start: 12-14-2019 FECAL OCCULT BLOOD FECAL OCCULT BLOOD [facility] Start: 12-14-2019 Screening for malignant neoplasm of colon [facility] Start: 12-14-2019 SIGMOIDOSCOPY SIGMOIDOSCOPY [facility] Start: 1993 HEPATITIS B (1 of 3 - Risk 3-dose series) HEPATITIS B (1 of 3 - Risk 3-dose series) [facility] Start: 1992 HEPATITIS C SCREENING HEPATITIS C SCREENING [facility] Start: 1992 Hepatitis C screening Hepatitis C Screening [facility] Start: 1992 HIV SCREENING HIV SCREENING [facility] Start: 12-14-1975 MMR Vaccines (1 of 1 - Standard series) MMR Vaccines (1 of 1 - Standard series) [facility] Start: 1974 HEPATITIS B (1 of 3 - 3-dose series) HEPATITIS B (1 of 3 - 3-dose series) [facility] Start: 1974 HIV screening HIV Screening [facility] Start: 1974 Lipid panel Lipid Panel [facility] Start: 1974 Screening for malignant neoplasm of colon [facility] Start: 1974 Yearly Adult Physical Yearly Adult Physical [facility] Alanine aminotransfe rase [Enzymatic activity/volume] in Serum or Plasma [facility] Albumin [Mass/volume ] in Serum or Plasma [facility] Alkaline phosphatase [Enzymatic activity/volume] in Serum or Plasma [facility] Anion gap in Serum o r Plasma [facility] Bacteria identified in Unspecified specimen by Anaerobe culture [facility] Bilirubin, total measurement [facility] Bilirubin.direct [Mass/volume] in Serum or Plasma [facility] BUN/Creatinine ratio [facility] Calcium [Mass/volume ] in Serum or Plasma [facility] Carbon dioxide, tota l [Moles/volume] in Central venous blood [facility] CBC W Auto Different ial panel - Blood [facility] Creatinine [Mass/vol ume] in Serum or Plasma [facility] CYTOLOGY 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 CYTOLOGY NON-GY N Lab Routine Multiple thyroid nodules 01/31/2024 2:19 PM EDT [facility] Work Phone: End: 03-06-2026 Echocardiography ECHO Cardiology Routine Tachycardia Lightheadedness 1 Occurrences starting 03/06/2025 until 03/06/2026 [facility] Work Phone: Comment on above: 1 Occurrences starting 03/06/2025 until 03/06/2026 Erythrocyte mean corpuscular volume determination [facility] Esophageal motility study w/interp&rpt ESOPHAGEAL MANOMETRY Gastroesophageal reflux disease, unspecified whether esophagitis present Esophageal dysphagia [facility] End: 03-10-2026 Flexible sigmoidoscopy study COLONOSCOPY DIAGNOSTIC Endoscopy Routine Anemia, unspecified type 1 Occurrences starting 03/10/2025 until 03/10/2026 [facility] Work Phone: Comment on above: 1 Occurrences starting 03/10/2025 until 03/10/2026 Glucose [Mass/volume ] in Serum or Plasma [facility] Hematocrit [Volume Fraction] of Blood [facility] Hematocrit [Volume Fraction] of Blood [facility] Hematocrit [Volume Fraction] of Blood [facility] Hematocrit [Volume Fraction] of Blood [facility] Hematocrit [Volume Fraction] of Blood [facility] Hemoglobin [Mass/vol ume] in Blood [facility] Hemoglobin [Mass/vol ume] in Blood [facility] Hemoglobin [Mass/vol ume] in Blood [facility] Hemoglobin [Mass/vol ume] in Blood [facility] Hemoglobin A1c/Hemoglobin.total in Blood [facility] Hepb vaccine adult 3 dose schedule for im use HEPATITIS B VACCINE, ADULT AGE 20+, IM Immunization/Injection Routine Ordered: 06/06/2022 [facility] Work Phone: Comment on above: Ordered: 06/06/2022 Iron [Mass/mass] in Unspecified specimen [facility] Iron saturation [Mas s Fraction] in Serum or Plasma [facility] Leukocytes [#/volume ] in Blood [facility] Magnesium measurement [facility] End: 02-06-2026 Manometry Study observation Narrative MANOMETRY ESOPHAGEAL Endoscopy Routine Esophageal dysphagia 1 Occurrences starting 02/06/2025 until 02/06/2026 [facility] Comment on above: 1 Occurrences starting 02/06/2025 until 02/06/2026 Mean corpuscular hemoglobin concentration determination [facility] Mean corpuscular hemoglobin determination [facility] Measurement of renal function [facility] End: 12-22-2025 MG Breast - bilateral Diagnostic FIGUEROA DIAGNOSTIC BILATERAL Radiology Routine Subareolar mass of right breast 1 Occurrences starting 11/22/2024 until 12/22/2025 [facility] Comment on above: 1 Occurrences starting 11/22/2024 until 12/22/2025 End: 12-26-2025 MR Brain WO and W contrast IV MRI BRAIN WO/W IVCON Radiology Routine Gynecomastia, male Low testosterone in male Elevated prolactin level 1 Occurrences starting 11/26/2024 until 12/26/2025 [facility] Work Phone: Comment on above: 1 Occurrences starting 11/26/2024 until 12/26/2025 End: 02-05-2026 MR Pituitary and Sella turcica WO and W contrast IV MRI PITUITARY WO/W IVCON Radiology Routine Abnormal brain MRI 1 Occurrences starting 01/06/2025 until 02/05/2026 [facility] Comment on above: 1 Occurrences starting 01/06/2025 until 02/05/2026 End: 01-19-2026 MR Shoulder - right WO contrast MRI SHOULDER WO IVCON RIGHT Radiology Routine Acute pain of right shoulder 1 Occurrences starting 12/20/2024 until 01/19/2026 [facility] Work Phone: Comment on above: 1 Occurrences starting 12/20/2024 until 01/19/2026 MR Shoulder - right WO contrast MRI SHOULDER WO IVCON RIGHT Radiology Routine Acute pain of right shoulder 01/04/2025 9:08 AM EDT [facility] Work Phone: Neutrophil count [facility] Neutrophil percent differential count [facility] OUTSIDE VENDOR CARDI AC OUTPATIENT EXTENDED RHYTHM RECORDING (WITHOUT TELEMETRY) OUTSIDE VENDOR CARDIAC OUTPATIENT EXTENDED RHYTHM RECORDING (WITHOUT TELEMETRY) Holter Routine Tachycardia Lightheadedness Ordered: 03/06/2025 [facility] Comment on above: Ordered: 03/06/2025 PAIN PANEL, UR QUANT PAIN PANEL, UR QUANT Lab Routine Attention 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 Medication management 12/07/2022 10:21 AM EST [facility] Work Phone: PAIN PANEL, UR QUANT PAIN PANEL, UR QUANT Lab Routine Attention 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 Medication management 12/07/2022 10:22 AM EST [facility] Work Phone: PAIN PANEL, UR QUANT PAIN PANEL, UR QUANT Lab Routine Attention 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 Medication management 08/19/2024 3:53 PM EST [facility] Work Phone: PAIN PANEL, UR QUANT PAIN PANEL, UR QUANT Lab Routine Attention 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 Medication management 08/19/2024 3:53 PM EST [facility] Patient referral [facility] Work Phone: Platelets [#/volume] in Blood [facility] Potassium measurement [facility] Red blood cell count [facility] Red cell distributio n width determination [facility] End: 03-08-2026 RF Gastrointestinal tract upper Views W air contrast PO and W barium contrast PO XR UPPER GI ROUTINE DOUBLE CONTRAST/AIR Radiology Routine Gastroesophageal reflux disease, unspecified whether esophagitis present 1 Occurrences starting 02/06/2025 until 03/08/2026 [facility] Work Phone: Comment on above: 1 Occurrences starting 02/06/2025 until 03/08/2026 Serum chloride measurement [facility] Sodium measurement [facility] SPECIMEN VALIDITY, URINE SPECIME N VALIDITY, URINE Lab Routine Attention 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 Medication management 12/07/2022 10:21 AM EST [facility] Work Phone: SPECIMEN VALIDITY, URINE SPECIME N VALIDITY, URINE Lab Routine Attention 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 Medication management 08/19/2024 3:54 PM [facility] Total iron binding capacity measurement [facility] Total protein measurement [facility] TOXICOLOGY SCREEN, R OUTINE URINE TOXICOLOGY SCREEN, ROUTINE URINE Lab Routine Attention 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 Medication management 08/19/2024 3:53 PM [facility] Troponin T.cardiac [Mass/volume] in Serum or Plasma by High sensitivity method [facility] Urea nitrogen [Mass/volume] in Serum or Plasma [facility] US Abdomen RUQ US ABD RIGHT UPP ER QUADRANT Radiology Routine Elevated alkaline phosphatase level 10/25/2024 7:58 AM [facility] Work Phone: End: 12-22-2025 US Breast - right limited US BREAST LTD RIGHT Radiology Routine Subareolar mass of right breast 1 Occurrences starting 11/22/2024 until 12/22/2025 [facility] Comment on above: 1 Occurrences starting 11/22/2024 until 12/22/2025 End: 03-06-2026 US Carotid arteries - bilateral US CAROTID ARTERIES [facility] Vascular Lab Routine Tachycardia Lightheadedness 1 Occurrences starting 03/06/2025 until 03/06/2026 [facility] Comment on above: 1 Occurrences starting 03/06/2025 until 03/06/2026 End: 08-05-2024 US Thyroid gland US THYROID/PARATHYROID Radiology Routine Multiple thyroid nodules 1 Occurrences starting 07/07/2023 until 08/05/2024 [facility] Work Phone: Comment on above: 1 Occurrences starting 07/07/2023 until 08/05/2024 US Thyroid gland US THYROID/PARA THYROID Radiology Routine Multiple thyroid nodules 01/19/2024 3:53 PM EDT [facility] Work Phone: End: 06-20-2025 XR Shoulder - right 3 Views XR SHOULDER GENERAL 3V OR MORE AP/TRUE AP/OTHER RIGHT Radiology Routine Acute pain of right shoulder 1 Occurrences starting 05/21/2024 until 06/20/2025 [facility] Work Phone: Comment on above: 1 Occurrences starting 05/21/2024 until 06/20/2025 XR Shoulder - right 3 Views XR SHOULDER GENERAL 3V OR MORE AP/TRUE AP/OTHER RIGHT Radiology Routine Acute pain of right shoulder 05/21/2024 4:17 PM EDT [facility] Immunizations Immunization Date Immunization Notes Care Provider Randee mccarthy 06-29-2024 COVID-19 vaccine, unspecified formulation Karla Patel PT Work Phone: [facility] 06-29-2024 influenza virus vacc ine, unspecified formulation Karla Patel PT Work Phone: [facility] 12-06-2023 COVID-19 vaccine, ag e 12+ yr, 2022- season ([employer]) Humberto Jackson MD Work Phone: [facility] 12-06-2023 pneumococcal conjuga te (PCV20) vaccine, 20 valent (PREVNAR 20) Humberto Jackson MD Work Phone: [facility] 12-06-2023 pneumococcal Conjuga te, unspecified formulation Humberto Jackson MD Work Phone: [facility] Work Phone: 07-07-2023 influenza, injectabl e, quadrivalent, contains preservative Torres Monaco APRN.[employer] Work Phone: [facility] 07-07-2023 influenza virus vacc ine, unspecified formulation Humberto Jackson MD Work Phone: [facility] 12-07-2022 hepatitis B vaccine, adult dosage Humberto Jackson MD Work Phone: [facility] 08-11-2022 COVID-19 booster vaccine, age 12+ yr, bivalent ([employer]) Kenyatta Castaneda PA-C Work Phone: [facility] 08-11-2022 influenza, injectabl e, quadrivalent, contains preservative Kenyatta Castaneda PA-C Work Phone: [facility] 07-20-2022 hepatitis B vaccine, adult dosage Mi Nurse Work Phone: [facility] Work Phone: 07-20-2022 hepatitis B vaccine, unspecified formulation Mi Nurse Work Phone: [facility] 06-10-2022 hepatitis B vaccine, adult dosage Mi Nurse Work Phone: [facility] Work Phone: 06-10-2022 hepatitis B vaccine, unspecified formulation Mi Nurse Work Phone: [facility] 04-13-2021 tetanus toxoid, redu minda diphtheria toxoid, and acellular pertussis vaccine, adsorbed Humberto Jackson MD Work Phone: [facility] 12-14-2020 COVID-19 vaccine ([employer]) Humberto Jackson MD Work Phone: [facility] 08-07-2020 Influenza, injectabl e, Madin [place] Canine Kidney, quadrivalent with preservative Xr Okay Work Phone: [facility] 06-28-2019 influenza, injectabl e, quadrivalent, contains preservative Humberto Jackson MD Work Phone: [facility] 08-21-2018 influenza, injectabl e, quadrivalent, preservative free Humberto Jackson MD Work Phone: [facility] 07-27-[address] Humberto Jackson Work Phone: [facility] 07-28-2017 influenza, injectabl e, quadrivalent, contains preservative Humberto Jackson MD Work Phone: [facility] 07-09-[address] Humberto Jackson Work Phone: [facility] 07-09-2017 influenza, seasonal, injectable Humberto Jackson MD Work Phone: [facility] 01-27-2017 pneumococcal polysaccharide vaccine, 23 valjayleen Jackson MD Work Phone: [facility] 09-11-2015 pneumococcal conjuga te vaccine, 13 valent Humberto Jackson MD Work Phone: [facility] Work Phone: 07-23-2015 influenza, injectabl e, quadrivalent, contains preservative Humberto Jackson MD Work Phone: [facility] 09-03-2014 influenza, seasonal, injectable Humberto Jackson MD Work Phone: [facility] Work Phone: 01-27-2011 tetanus toxoid, redu minda diphtheria toxoid, and acellular pertussis vaccine, adsorbed Humberto Jackson MD Work Phone: [facility] Payers Date Payer Category Payer Self-pay [id number] 2020 Blue Cross Blue Shield [id number] 2020 Unknown ABDULAZIZ BLUE ACCE SS PPO [id number] 2020-Present [phone] [address] [place] [address] PPO [id number] 2020 Unknown [id number] 2020 Unknown [id number] 1975 Unknown [id number] Private Health Insurance Private Health Insurance [id number] Unknown [id number] Unknown [id number] .462 Unknown [id number] .462 Unknown [id number] 2.840.1.574361.3.579.2 .462 Unknown [id number] .462 Unknown [id number] 2.840.1.558368.3.579.2 .462 Unknown [id number] 2.16.840.1.068185.3.579.2 .462 Unknown [id number] 2.16.840.1.535159.3.579.2 .462 Unknown [id number] 2.16.840.1.503156.3.579.2 .462 Unknown [id number] 2.16.840.1.485782.3.579.2 .462 Unknown [id number] 2.16.840.1.058224.3.579.2 .462 Unknown [id number] 2.16.840.1.882970.3.579.2 .462 Unknown [id number] 2.16.840.1.021334.3.579.2 .462 Unknown [id number] [id number] .462 Unknown [id number] 2.16.840.1.198080.3.579.2 .462 Unknown [id number] 2.16.840.1.546417.3.579.2 .462 Unknown [id number] [id number] .462 Unknown [id number] .462 Social History Date Type Detail Facility Start: 06-04-2022 End: 04-08-2025 Tobacco smoking status KSIS Never smoked tobacco [facility] Start: 10-15-2021 End: 04-04-2025 Alcohol intake Current drinker of alcohol (finding) [facility] Start: 03-24-2020 History SDOH Alcohol Frequency 4 [facility] Start: 03-24-2020 End: 08-11-2022 History SDOH Alcohol Std Drinks 1 [facility] Start: 05-12-2015 History SDOH Alcohol Comment Rarely [facility] Start: 02-11-2020 End: 08-11-2022 History SDOH Social Connections Membership 2 [facility] Start: 02-11-2020 End: 06-04-2022 History SDOH Social Connections Living 3 [facility] Start: 02-11-2020 End: 06-04-2022 History SDOH Physical Activity DPW 0 [facility] Start: 03-24-2020 End: 06-04-2022 History SDOH Financial 5 [facility] Start: 02-10-2020 Education 21 [facility] Start: 1975 Sex Assigned At Male [facility] Start: 09-20-2020 End: 10-27-2023 Exposure to SARS-CoV-2 (event) Not sure [facility] Start: 04-09-2022 End: 04-19-2022 Exposure to SARS-CoV-2 (event) Unable to assess [facility] Start: 05-12-2015 End: 06-04-2022 Tobacco use and exposure Smokeless tobacco non-user [facility] Start: 04-14-2023 Tobacco smoking status NHIS Unknown if ever smoked [facility] Start: 10-11-2017 None [facility] Start: 10-11-2017 Spouse/ Significant Other [facility] Start: 10-11-2017 Non-smoker [facility] Start: 06-03-2022 End: 04-10-2023 History of Social function [facility] Start: 06-03-2022 End: 04-10-2023 Social connection and isolation panel [facility] Do you belong to any clubs or organizations such as episcopal groups, unions, fraternal or athletic groups, or school groups? Yes [facility] Are you now , , , , never or living with a partner? [facility] How often to you hav e a drink containing alcohol? 2-4 times a month [facility] How many standard dr inks containing alcohol do you have on a typical day? 1 or 2 [facility] How often do you hav e 6 or more drinks on 1 occasion? Never [facility] How hard is it for y ou to pay for the very basics like food, housing, medical care, and heating Not hard at all [facility] Do you feel stress - tense, restless, nervous, or anxious, or unable to sleep at night because your mind is troubled all the time - these days [OSQ] Only a little [facility] (I/We) worried wheth er (my/our) food would run out before (I/we) got money to buy more. Never true [facility] In the past 12 month s, was there a time when you were not able to pay the mortgage or rent on time? No [facility] Start: 02-10-2020 Gender identity Identifies as male gender (finding) [facility] Start: 02-10-2020 Sexual orientation Heterosexual (finding) [facility] Start: 1975 Sex Assigned At Not on file [facility] Work Phone: How often to you hav e a drink containing alcohol? Monthly or less [facility] How hard is it for y ou to pay for the very basics like food, housing, medical care, and heating Somewhat hard [facility] Do you feel stress - tense, restless, nervous, or anxious, or unable to sleep at night because your mind is troubled all the time - these days [OSQ] To some extent [facility] How often to you hav e a drink containing alcohol? 2-3 time sa week [facility] Medical Equipment Procedure Code Equipment Code Equipment Origin al Text Equipment Identifier Dates EGD, with monitored anesthesia care Gastrointestinal endoscopic clip, long-term, non-bioabsorbable ()[id number] FDA Start: 03-20-2025 EGD, with monitored anesthesia care Bare-metal duodenal stent ()[id number] FDA Start: 03-20-2025 EGD, with monitored anesthesia care Ligation clip, metallic [id number] FDA Start: 03-20-2025 [id number], [id number], [id number], [id number] Start: 01-27-2017 End: 10-18-2023 Comment on above: Test blood sugar 1-2 times daily. E11.9 Use four pen needles daily Test blood sugar(s) 1-2 times daily. Dx: 250.00. Insulin: No Use one pen needles daily Use two pen needles daily Use 2 PEN NEEDLES to inject MEDICATION subcutaneously daily Use 4 PEN NEEDLES to inject MEDICATION subcutaneously daily Bare-metal duode nal stent ()[id number] FDA Start: 03-20-2025 Goals Date Patient Goal Desired Activity /State Personal health goal Functional Status Date Assessment Result Facility 03-21-2025 Functional status Ambulates;Bath room Privilege [facility] Work Phone: 03-06-2025 Total score [AUDIT-C] 1 03/06/20 6:43 AM EDT User, Nevillehart [facility] 03-06-2025 How often to you hav e a drink containing alcohol? Monthly or less 03/06/2025 6:43 AM EDT User, Mychart Monthly or less [facility] 03-06-2025 How many standard drinks containing alcohol do you have on a typical day? 1 or 2 03/06/2025 6:43 AM EDT User, Mychart 1 or 2 [facility] 03-06-2025 How often do you hav e 6 or more drinks on 1 occasion? Never 03/06/2025 6:43 AM EDT User, Mychart Never [facility] 01-11-2025 IGF-I Z-score SerPl -1.2 [facility] Comment on above: Order Comment: Speci men Type: BLOOD SPECIMEN Ordering Facility: [facility] Address: [address] [place] [address] Performed By: #### I LGF1 #### [facility] CLIA [id number] [address] [place] [address] [place] 09-28-2023 Are you deaf, or do you have serious difficulty hearing No 09/28/2023 10:53 AM Diamond Sheppard RN No [facility] 09-28-2023 Are you blind, or do you have serious difficulty seeing, even when wearing glasses No 09/28/2023 10:53 AM Diamond Sheppard RN No [facility] 09-28-2023 Do you have serious difficulty walking or climbing stairs No 09/28/2023 10:53 AM Diamond Sheppard RN No [facility] 09-28-2023 Do you have difficul ty dressing or bathing No 09/28/2023 10:53 AM Diamond Sheppard, KENNEY No [facility] 09-28-2023 Because of a physica l, mental, or emotional condition, do you have difficulty doing errands alone such as visiting a physician's office or shopping No 09/28/2023 10:53 AM Diamond Sheppard RN No [facility] 04-15-2023 Functional status Bedrest [facility] Work Phone: Mental Status Date Assessment Result Facility 03-21-2025 Cognitive function Level Of Cons ciousness Awake;Alert;Appropriate;Fol lows Commands [facility] Work Phone: 03-21-2025 Cognitive function Voice/Name;Touch/Shaki ng [facility] Work Phone: 09-28-2023 Because of a physica l, mental, or emotional condition, do you have serious difficulty concentrating, remembering, or making decisions No 09/28/2023 10:53 AM Diamond Sheppard RN No [facility] 04-15-2023 Cognitive function Voice/Name [facility] Work Phone: Clinical Notes 10-20-2020 to 04-07-2025 Note Date & Type Note Facility 04-07-2025 Progress note [facility] 04-07-2025 Progress note Note Date/Time April 07, 2025 2:09pm [facility] [address] [place] [address]. [address] [place] [address] OFFICE VISIT Date of Service: 04/07/25 MR#: [id number] Acct: [id number] Name: DEMETRIABIANCA HURTADO AVA Rep #: [id number] : 1975 Provider: Dr. Vadim Hansen MD Age/Sex: 49/M Location: [facility] Status: Signed Intake Vital Signs 03/27/25 15:32 04/07/25 13:53 Height 6 ft 2 in 6 ft 2 in Weight: 261 lb BMI 33.5 BP 121/79 H Blood Pressure Location Rt brachial Position Sitting Respiration 17 Pulse 82 Pulse Source Monitor Pulse Oximetry (%) 100 Oxygen Delivery Method room air Intake Visit Reasons: PORT PLACEMENT Chief Complaint: port placement Is patient in pain?: No Allergies citalopram Allergy (Unknown, Verified 04/07/25 13:54) Unknown venlafaxine Allergy (Unknown, Verified 04/07/25 13:54) Unknown metoclopramide (From Reglan) Allergy (Verified 04/07/25 13:54) weirds me out sertraline (From Zoloft) Allergy (Verified 04/07/25 13:54) sexual side effects topiramate (From Topamax) Allergy (Verified 04/07/25 13:54) Unknown Medications ?Medication ?Instructions ?Recorded ?Confirmed ?Type esomeprazole magnesium 40 mg 40 mg PO QHS gerd 8 04/07/25 History capsule,delayed release fenofibrate 50 mg capsule 54 mg PO DAILY cholesterol 0 10/10/17 04/07/25 History multivitamin 1 ea PO DAILY supplement 11/2604/07/25 History metformin 500 mg tablet 1,000 mg PO BID diabetes 04/07/25 History doxepin 10 mg capsule 10 mg PO QHS insomnia 04/07/25 History olanzapine 2.5 mg tablet 2.5 mg PO QHS insomnia 10/2004/07/25 History zonisamide 25 mg capsule 25 mg PO DAILY unknown 10/2004/07/25 History buspirone 15 mg tablet mg PO BID anxiety 04/14/23 0 04/07/25 History duloxetine 60 mg capsule,delayed mg PO DAILY depressio n 04/14/23 04/07/25 History release insulin lispro protamine-lispro subcut Type 2 DM 04/1404/07/25 History 100 unit/mL (75-25) subcutaneous pen atorvastatin 80 mg tablet 80 mg PO DAILY hypercholestr emia 03/16/25 04/07/25 History dexmethylphenidate 20 mg 20 mg PO DAILY on hold 03/1604/07/25 History capsule,extended release [id number] duloxetine 30 mg capsule,delayed 30 mg PO DAILY depres brittni 03/16/25 04/07/25 History release ferrous sulfate 325 mg (65 mg 325 mg PO BID anemia 06/0204/07/25 History iron) tablet fluticasone propionate 50 1 spray NASAL DAILY PRN anuj rgic 03/21/25 04/07/25 Rx mcg/actuation nasal symptoms #0 grams spray,suspension metoclopramide HCl 10 mg tablet 10 mg PO TID #30 tabs 03/21/25 04/07/25 Rx (Reglan) ondansetron HCl 8 mg tablet 8 mg PO Q6H PRN PRN nausea and 03/21/25 04/07/25 Rx vomiting #40 tabs PFSH Medical History (Updated 04/07/25 @ 13:53 by Kayla Ross) Weight loss Symptomatic anemia Carcinomatosis Gastric mass Anemia Lung nodule 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 History of rectal abscess Multiple thyroid nodules Restrictive airway disease Abnormal chest CT Pneumonia Acute respiratory failure Shortness of breath Community acquired pneumonia Chronic headache Acute respiratory failure with hypoxia GERD (gastroesophageal reflux disease) Anxiety and depression Diabetes mellitus, type II Obesity (BMI 30-39.9) HLD (hyperlipidemia) MIKE (obstructive sleep apnea) Surgical History (Updated 03/29/25 @ 00:01 by Justin Hampton) Hx of drainage of abscess (~04/2023) Hx of appendectomy Hx of tonsillectomy Family History Father Colon cancer at age 53 Heart disease Myocardial infarction Social History household members: spouse housing: house current occupational status: employed 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 Patient has been with oncology tomorrow unsure of exact date for start of treatment. ROS General General: Yes weight change; No appetite, fatigue, colon cancer, breast cancer or [...] heart attack, heart stent, palpitations, shortness of breath with exertion or chest pain Psych Psychiatric: Yes depression and anxiety Resp Respiratory: No shortness of breath, Yes sleep apnea, No cough, No COPD, No asthma, No emphysema and No wheezing Gastro Gastrointestinal: Yes abdominal pain, No nausea or vomiting, No diarrhea, No constipation, No blood in stool, Yes acid reflux, No hemorrhoids, Yes ulcers, Nogallbladder problem and No black,tarry stools Kofi Hematologic: No blood thinners, No blood disorders, No bleeding, Yes anemia and No blood clots Neuro Neurologic: No system reviewed and no additional complaints, except as documented, No as per HPI, No abnormal gait, No abnormal hearing, No abnormal movements, No abnormal speech, No behavioral changes, No burning sensations, No confusion, No convulsions, No disequilibrium, No dizziness, No localized weakness, No frequent falls, No headache(s), No lack of coordination, No loss ofvision, No memory loss, No numbness, No other visual disturbances, No radicular pain, No restless legs, No sensory deficit, No syncope, No tingling, No tremor(s), No weakness and No other Exam Const General: cooperative, healthy appearing, comfortable and no acute distress [facility] Head: normocephalic and atraumatic Neck Neck: supple Chest Other: Palpation bilateral upper chest normal Resp Effort & Inspection: normal respiratory effort Cardio Rate: regular rate GI Inspection: non-distended Palpation: soft Skin General: no rashes or lesions noted Neuro General: CN's II-XI intact bilaterally Extrem General: normal to inspection Psych Mental Status: mental status grossly normal Attitude: cooperative Assessment and Plan Assessment and Plan (1) Encounter for insertion of venous access port: Status: Acute (2) Gastric cancer: Status: Acute Qualifiers: 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 Right possible left IJ Patient has been counseled as to the risks/benefits of the procedure. I have explained the risks of the surgery, including but not limited to: infection, bleeding, injury to any blood vessels/nerves, injury to lungs (such as pneumothorax or hemothorax and need for chest tube), not having any access, nonfunctioning of port due to thrombosis, infection of port, etc. the patient understands and agrees to proceed. I have answered all the patient's questions to the patient?s satisfaction and the patient has no further questions. Maranda Hansen M.D. Pager: [phone] [facility] [address] [place] [address], [address] [place] [address] Office: 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 Humberto Jackson MD; Dr. Cary Chandra MD ~ [facility] [employer] Phone: 1(170) 698-143206-27-2025 Telephone encounter Note* Telephone Encounter - Geoffrey Moody MA - 04/04/2025 4:18 PM EDT Pt called and notified of results below, verbalized understanding. Geoffrey Moody MA [facility]06-27-2025 Miscellaneous Notes* Telephone Encounter - Geoffrey Moody MA - 04/04/2025 4:18 PM EDT Pt called and notified of results below, verbalized understanding. Geoffrey Moody MA * Telephone Encounter - Humberto Jackson MD - 04/04/2025 4:14 PM EDT Let patient know know his Hg is better at 10.7. When he was discharged on 03/21/2025 it was 9.4. documented in this encounterAd[facility]06-27-2025 Telephone encounter Note * Telephone Encounter - Humberto Jackson MD - 04/04/2025 4:14 PM EDT Let patient know know his Hg is better at 10.7. When he was discharged on 03/21/2025 it was 9.4. [facility]06-27-2025 Instructions* Patient Instructions* Humberto Jackson MD - 04/04/2025 9:29 AM EDT We discussed your bowel movements and constipation: - Continue taking Miralax daily. Adjust the dose as needed to find the right balance for soft, [id number] stools. Start with your current dose and increase by to 1 teaspoon if needed. Maintain the same dose for 3 days to assess its effect before making further adjustments. - If your stools become too loose, reduce the dose by teaspoon until you find the right amount. - The goal is to have soft stools that are easy to pass without straining. We discussed your dark stools: - Dark stools may be caused by the iron supplement you are taking. However, we will check your ironlevels and hemoglobin to ensure there is no active bleeding. - Please complete the blood count and iron labs today at the [facility]. The blood count will be ordered as stat, and results will be reviewed promptly. If your hemoglobin is low, we may recommend further evaluation or treatment. We discussed your iron supplementation: - Continue taking your iron supplement twice daily. Take it with a small amount of orange juice to improve absorption. - If you prefer, you can also take a vitamin C tablet once daily to aid absorption. We discussed your reflux and Nexium use: - Continue taking Nexium 40 mg once daily. If you experience stomach pain or worsening reflux, you may increase the dose to twice daily as needed. We discussed your emotional health: - You reported feeling overwhelmed at times but are not experiencing depression. You also mentioneddifficulty crying and occasional emotional distress. - I have increased your Cymbalta dose to 60 mg twice daily to help with mood. You can use your current 30 mg tablets by doubling the dose until they are finished. If needed, we can adjust the dose further at your next visit. We discussed your abdominal pain and appetite: - Abdominal pain may be related to your stent or irregular bowel movements. Eating small, well-chewed meals is important to avoid discomfort due to the narrowed stomach opening. - Continue eating small meals and monitor your symptoms. If the pain persists or worsens, follow upwith Dr. Martinez to confirm whether the stent is causing the discomfort. We discussed your recent migraine: - You experienced one severe migraine with light and sound sensitivity. Since this was an isolated event, no further treatment is needed at this time. - If you experience additional migraines, please let us know. We discussed your nausea: - Continue using Zofran as needed for nausea. If nausea worsens or becomes frequent, please let us know. We discussed your upcoming care: - You have an MRI scheduled today to evaluate your recent headache. Results will be reviewed by your care team. - Follow up with Dr. Deluca next week to discuss the PET scan results and any additional findings regarding your cancer treatment plan. - If you visit Dr. Martinez s office, ask about the abdominal pain and whether it is common with the stent. We discussed yo, ur anemia and lab work: - Labs ordered today include a blood count and iron levels. Please complete these at the [facility] after your MRI. The blood count will be run stat, and we will contact you with results. - If your hemoglobin is low, we may recommend returning to the hospital for further evaluation or treatment. Follow-up: - Schedule a follow-up appointment with me in one month to review your progress, including your response to the increased Cymbalta dose and any updates on your symptoms or treatment plan. - Continue monitoring your symptoms and let us know if you experience worsening abdominal pain, changes in bowel movements, or any new or concerning symptoms. documented in this encounterAdams County [facility]06-27-2025 NoteC[facility] History of Present illness Narrative* Humberto Jackson MD - 04/04/2025 8:24 AM EDT Chief Complaint Patient presents with: Hospital Follow Up HPI Bianca Delarosa is a 49 year old male who presents here today for a Hospital follow up. Here today with his . Pt admitted in [facility] on 03/16/25 for abdominal pain, brooks appearing, and lethargy. Pt was d/c home on 03/21/25. Pt had EGD's on 03/17/25, 03/20/25 with stent placed. Pt was d/c home on Azithromycin 500 mg, but this has been completed. Has not followed up with [facility] GI, . Friend since being d/c. States they've tried to reach out to his office but have not heard back. Using Tylenol prn for abdominal pain. Taking Miralax to help with BM's. [facility] ED Progress Note 03/17/25: Progress Note 49-year-old patient presented the emergency department complaint of not feeling well for over a week and a half. Patient states that he saw primary care physician who did some blood work and noted that he was anemic with hemoglobin of 9 over a week ago. Patient was scheduled to have a colonoscopy later this month. He was started oniron. He continues to not feel well. He complains of feeling lightheaded and dizzy with standing and heart racing. He denies blood in his stool or black tarry stool. Patient states he has not had a good bowel movement in3 days and he attributes that to the iron. He denies fevers chills or sweats. He has had about an 18 pound weight loss in the last month because he is just not been eating as much and is cut his portionsizes. There is a family history of colon cancer. CT/Abdomen/Pelvis W IV Cont ONLY IMPRESSION: 1. Mildly distended stomach, secondary to gastric pylorus circumferential wall thickening and resultant luminal narrowing. Findings concerning for an underlying obstructive gastric mass/outlet obstruction. Recommend further evaluation with endoscopy. 2. Multiple prominent-mildly enlarged retroperitoneal nodes. 3. Diffuse nodularity within the anterior mesentery and bilateral paracolic gutters, concerning forperitoneal carcinomatosis. 4. Multiple sclerotic osseous lesions concerning for osseous metastasis. PET/PET/CT Tumor Base -Thigh Init IMPRESSION: FDG avid- 1. In the region of the pylorus, increased metabolic activity is seen, with SUV max of 4.2. This is consistent with the known malignancy at this site. 2. Low-level increased metabolic activity seen throughout most of the axial and appendicular skeleton, including proximal femora and spine. Other: 1. Pyloric stent in place. 2. Right upper quadrant omental stranding is similar to the CT 03/19/2025. 3. Diffuse fatty infiltration of the liver. Bianca Delarosa is a 49-year-old male with a history of gastric cancer, presenting for follow-upafter recent hospitalization. Bianca was discharged from the hospital on the , approximately 2 weeks ago, after being admittedfor symptoms including dizziness, fatigue, and changes in skin color. He reports significant weightloss, noting a decrease from 288 lbs to 257 lbs over the past few months. He attributes some of this weight loss to a reduced appetite and early satiety, stating, I just don't eat like I used to though. I mean, I just, I don't have the appetite, I get full. He is currently eating small meals and chewing food thoroughly as advised due to a smaller gastric opening. He reports ongoing abdominal pain and discomfort over the past few weeks, with yesterday being the best day and today not being bad. He describes the pain as alternating between the upper abdomen andaround the umbilicus, suspecting it may be related to constipation or the stent. He has been takingMiralax, 1-2 capfuls daily, which has helped regulate bowel movements, though he notes his stools ar e soft and dark, possibly due to iron supplementation. He denies solid stools since the day after hospital discharge and reports occasional nausea without emesis, managed with Zofran as needed. He reports a history of migraines, with a recent severe episode characterized by photophobia and phonophobia, lasting most of the evening. He has an MRI scheduled today at 1000 to investigate further. He denies any subsequent headaches, syncope, seizures, or tremors. He reports a significant improvement in reflux symptoms, currently managed with Nexium 40 mg once daily. He denies wheezing or dyspnea since returning home, with SpO2 levels consistently in the 90s. He reports occasional chest pain localized to the lower chest, not radiating to the upper chest. He reports improved sleep, initially disrupted by Reglan 10 mg causing restlessness and discomfort.He has since been sleeping in his bed after a few nights in a recliner due to abdominal pain. He occasionally uses melatonin and Tylenol PM for sleep, but is not dependent on them. He reports emotional distress, feeling overwhelmed and tearful at times, but denies depression. He is anxious about upcoming PET scan results. He is currently on Cymbalta, with a potential dosage increase discussed. He also reports hot flashes and a resolved mass under his nipple. He is managing diabetes well, with blood glucose levels consistently under 200 mg/dL, typically 150-160 mg/dL, occasionally spiking to 200-250 mg/dL postprandially but returning to normal within an hour. He is on iron supplementation twice daily with orange juice for better absorption. He denies lumps or swelling in the neck. Past medical history, appointments, medications, allergies reviewed. Previous Medical History PAST MEDICAL HISTORY Diagnosis Date Abnormal finding on MRI of brain 12/11/2024 Possible pituitary adenoma. 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 Elevated antinuclear antibody (JALEEL) level 03/31/2014 Family history of malignant neoplasm of gastrointestinal tract 03/31/2014 Fatty liver 10/28/2024 US: 10/2024 ISABELLA (generalized anxiety disorder) 06/22/2020 Gastric cancer (HCC) 03/28/2025 Seeing Hem/Onc: Dr. Chandra [facility] GERD without esophagitis 09/26/2018 Gynecomastia, male 12/03/2024 Right breast Hepatic steatosis 10/25/2024 per U/S Hiatal hernia 03/31/2014 History of COVID-19 09/23/20232021, 09/2023 History of gastric ulcer 03/19/202503/2025 Hx of colonic polyp 03/31/2014 Needs next colonoscopy 08/2022 Iron deficiency anemia 04/04/2025 Lump 11/16/2019 benign left palm Major depressive [...] Primary insomnia 07/28/2020 QT prolongation 04/20/2021 [facility] [place] to be benign and related to anti- depressants. No changes needed. TMJ (temporomandibular joint disorder) 03/31/2014 Right side Type 2 diabetes mellitus without complication, without long-term current use of insulin (HCC) 01/19/2017 Vitamin B12 deficiency 03/10/2025 Well adult exam 12/17/2014 Last done:11/16/2019 Previous Surgical History PAST SURGICAL HISTORY Procedure Laterality Date APPENDECTOMY HX 2004 ARTHROTOMY W/MENISCUS REPAIR KNEE Right 04/2021 COLONOSCOPY 06/2012 Dr. Corrigan +polyp, repeat 5 yrs COLONOSCOPY 08/30/2022 repeat in 5 years COLONOSCOPY FLX DX W/COLLJ SPEC WHEN PFRMD 08/16/2017 Colonoscopy, repeat 5 yrs, Dr. Bliss EGD W/O BRSH SPEC VARICIES INJ N/A 03/17/2025 EGD W/O BRSH SPEC VARICIES INJ N/A 03/20/2025 I&D ABSC SMPL OR SGL Left 03/10/2024 [...] See Comments Sexual side affect Reglan [Metoclopram* Other: See Comments Can only tolerate 5 mg dose. The 10 mg tabs causes him to be restless and mentally off. Zoloft [Sertraline * Other: See Comments drowsy Current Medications Current Outpatient Medications on File Prior to Visit Medication Sig ferrous sulfate 325 mg (65 mg iron) tablet TAKE 1 TABLET BY MOUTH TWICE A DAY WITH FOOD dexmethylphenidate XR (FOCALIN XR) 20 mg biphasic capsule Take 1 capsule by mouth once daily for 30days. busPIRone (BUSPAR) 15 mg tablet Take one tab by mouth twice a day. metFORMIN (GLUCOPHAGE) 500 mg tablet TAKE 2 TABLETS BY MOUTH TWO TIMES A DAY WITH MEALS. methylphenidate CD (METADATE CD) 20 mg biphasic [...] by mouth once daily. Blood-Glucose Sensor (FREESTYLE DIANA 3 SENSOR) agnes USE ONE SENSOR EVERY [...] mL for a 90 day supply. Insulin Carpio, Disposable, (DROPLET PEN NEEDLE) 31 gauge x [...] No Review of Symptoms REVIEW OF SYSTEMS NECK: Negative for lumps, goiter, pain and significant neck swelling RESPIRATORY: Negative for cough, hemoptysis, wheezing, COPD, dyspnea or shortness of breath CARDIOVASCULAR: Negative for chest pain, leg swelling, hypertension, CHF or palpitations GI: No vomiting, or diarrhea. Occasional nausea. PSYCH: depression and anxiety not as well controlled. Sleeping well. NEURO: No history of syncope, paralysis, seizures or tremors. Has a headache one day and has a MRI set for today. SEE HPI EXAM: BP 118/82 Pulse 84 Resp 16 Wt 116.8 kg (257 lb 6.4 oz) BMI 33.05 kg/m BP 118/82 Pulse 84 Resp 16 Wt 116.8 kg (257 lb 6.4 oz) BMI 33.05 kg/m Last 5 Encounter Wt Readings: Date: Wt: 04/04/2025 116.8 kg (257 lb 6.4 oz) 03/10/2025 125.4 kg (276 lb 6.4 oz) 03/06/2025 126.1 kg (278 lb) 02/06/2025 130.6 kg (288 lb) 01/21/2025 129.7 kg (286 lb) General Appearance: Well appearing, alert, in no acute distress, well-hydrated, well nourished. andObese. Neck: Supple, no adenopathy; thyroid symmetric, normal size, no bruits. Lungs: Lungs clear to auscultation. No wheezing, rhonchi, rales.. Heart: RRR without murmur, gallop, or rubs. No ectopy. Abdomen: Abdomen soft, non-distended. Mild epigastric tenderness and lower abdominal tenderness.. Bowel sounds normal. No masses, organomegaly. Extremities: No deformities, edema, skin discoloration, \ Good capillary refill. . Peripheral Pulses: Normal. Neurologic: Gait normal. Sensation grossly intact.. Health Maintenance List Urine Albumin:Creatinine Ratio due on 08/11/2024 Dilated Retinal Exam due on 02/22/2025 HbA1C due on 03/22/2025 Shingrix Vaccine(1 of 2) due on 12/30/2025 LDL Cholesterol due on 12/20/2025 Diabetic Foot Exam due on 12/30/2025 Annual PCP Team Chronic Disease Visit due on 04/04/2026 Colorectal Cancer Screening due on 08/30/2027 Pneumococcal Vaccine: 50+(3 of 3 - PCV20 or PCV21) due on 12/06/2028 DTaP,Tdap,Td Vaccine(3 - Td or Tdap) due on 04/13/2031 Hepatitis B Vaccine Completed Influenza Vaccine Completed Covid-19 Vaccine Completed Hepatitis C Screening Discontinued HIV Screening Discontinued Data reviewed Latest Ref Rng 12/20/2024 03/06/2025 03/07/2025 WBC 3.70 - 11.00 k/uL 7.97 9.97 RBC 4.20 - 6.00 m/uL 4.40 4.02 (L) Hemoglobin 13.0 - 17.0 g/dL 12.3 (L) 9.6 (L) Hematocrit 39.0 - 51.0 % 37.3 (L) 31.6 (L) MCV 80.0 - 100.0 fL 84.8 78.6 (L) MCH 26.0 - 34.0 pg 28.0 23.9 (L) MCHC 30.5 - 36.0 g/dL 33.0 30.4 (L) RDW-CV 11.5 - 15.0 % 12.2 13.8 Platelet Count 150 - 400 k/uL 352 427 (H) MPV 9.0 - 12.7 fL 12.5 12.7 Neut% % 57.1 65.9 Abs Neut (ANC) 1.45 - 7.50 k/uL 4.55 6.57 Lymph% % 33.2 25.2 Abs Lymph 1.00 - 4.00 k/uL 2.65 2.51 [place]% % 6.0 6.6 Abs [place] <0.87 k/uL 0.48 0.66 Eosin% % 2.5 1.3 Abs Eosin <0.46 k/uL 0.20 0.13 Baso% % 0.8 0.6 Abs Baso <0.11 k/uL 0.06 0.06 Immature Gran % % 0.4 0.4 IMMATURE GRANS (ABS) <0.10 k/uL 0.03 0.04 NRBC /100 WBC 0.0 0.0 Absolute nRBC <0.01 k/uL <0.01 <0.01 DTYPE Auto Auto Glucose 74 - 99 mg/dL 171 (H) BUN 9 - 24 mg/dL 12 Creatinine 0.73 - 1.22 mg/dL 0.79 Sodium 136 - 144 mmol/L 137 Potassium 3.7 - 5.1 mmol/L 4.3 Chloride 98 - 107 mmol/L 101 CO2 22 - 30 mmol/L 22 Anion Gap 8 - 15 mmol/L 14 Calcium 8.5 - 10.2 mg/dL 8.8 eGFR >=60 mL/min/1.73m 108 Iron 41 - 186 ug/dL 17 (L) TIBC 232 - 386 ug/dL 387 (H) Transferrin Saturation 15.0 - 57.0 % 4.4 (L) Vitamin B12 232 - 1,245 pg/mL 438 295 TSH 0.270 - 4.200 mIU/L 2.020 Ferritin 30.3 - 565.7 ng/mL 5.9 (L) Folate >4.7 ng/mL 8.7 Assessment and Plan 1. Malignant neoplasm of stomach, unspecified location (HCC) (C16.9) Recent PET scan shows increased metabolic activity in the tumor area and low- level activity in the axial and appendicular skeleton, including the proximal femur and spine. CT scan revealed multiple sclerotic osseous lesions concerning for bone metastases, as well as prominent retroperitoneal lymph nodes and diffuse nodularity within the anterior mesentery and bilateral paracolic gutters, concerning for peritoneal carcinomatosis. Patient experiencing abdominal pain and discomfort, likely relatedto the tumor and pyloric stent. - Discussed PET scan findings with patient; oncologist Dr. Najera to review and provide further interpretation. - Advised patient to follow up with Dr. Martinze regarding abdominal pain and stent-related discomfort. - Patient to continue current treatment plan with oncologist, including chemotherapy and immunotherapy. - Scheduled follow-up appointment in one month to monitor progress and address any new symptoms. 2. Iron deficiency anemia, unspecified iron deficiency anemia type (D50.9) Hemoglobin levels have dropped from 12.3 g/dL to 9.6 g/dL, with a further decrease to below 7 g/dL during recent hospitalization. Patient is currently on oral iron supplementation and consuming orange juice to enhance absorption. - Ordered CBC and iron studies to be performed at [facility]; CBC ordered stat to assess current hemoglobin levels. - Continue oral iron supplementation and orange juice intake. - Repeat labs in 1-2 weeks to trend levels. 3. Altered bowel function (R19.8) Patient experiencing altered bowel function, likely due to the tumor and pyloric stent. Currently taking Miralax daily, with adjustments as needed to maintain soft, [id number] stools. Stool color is dark, possibly due to iron supplementation. - Continue Miralax, adjusting dosage as needed to maintain soft stools. - Monitor stool color and consistency; report any significant changes. - Follow up with Dr. Martinez regarding stent-related discomfort and its impact on bowel function. F/u 4 weeks gastric ulcer and depression with me. Humberto Jackson MD I spent a total of 53 minutes on the date of the service which included preparing to see the patient, [id number] patient care, completing clinical documentation, performing a medically appropriate examination, counseling and educating the patient/family/caregiver and ordering medications, tests, or procedures. Recording using [employer] software for draft documentation of the visit was discussed with the patient/authorized sales service representative; all questions welcomed and answered. Patient/authorized sales service representative agreed to proceed documented in this encounterAdams County [facility] Center06-25-2025 NoteHNO ID: [id number] Author: EZRA STEIN LPN Service: ? Author Type: LICENSED NURSE Type: Progress Notes Filed: 04/02/2025 07:01 Note Text: Scan on 04/01/2025 4:13 PM by Provider, External, PA-C: [facility] History of Present illness Narrative* Ezra Stein LPN - 04/02/2025 7:01 AM EDT Scan on 04/01/2025 4:13 PM by ProviderCarmenza PA-C: PET documented in this encounterAd[facility]06-24-2025 Telephone encounter Note * Telephone Encounter - Tia Ibarra MA - 04/01/2025 10:35 AM EDT Requesting 90 day supply. Prescription Refill Information The patient has been identified by name and date of : Yes Caregiver verified no other encounters exist for this prescription request: Yes Caregiver confirmed with patient/requestor that no other refills are due, in the near future, with this provider at this time: No The last office visit in the department: 03/06/25 Does the patient have a future office visit with this provider/department: Yes Requested Prescriptions Pending Prescriptions Disp Refills ferrous sulfate 325 mg (65 mg iron) tablet [Pharmacy Med Name: FERROUS SULFATE 325 MG TABLET] 180 tablet 1 Sig: TAKE 1 TABLET BY MOUTH TWICE A DAY WITH FOOD Tia Ibarra MA April 01, 2025 10:35 AM ' [facility]06-24-2025 Miscellaneous Notes* Telephone Encounter - Tia Ibarra MA - 04/01/2025 10:35 AM EDT Requesting 90 day supply. Prescription Refill Information The patient has been identified by name and date of : Yes Caregiver verified no other encounters exist for this prescription request: Yes Caregiver confirmed with patient/requestor that no other refills are due, in the near future, with this provider at this time: No The last office visit in the department: 03/06/25 Does the patient have a future office visit with this provider/department: Yes Requested Prescriptions Pending Prescriptions Disp Refills ferrous sulfate 325 mg (65 mg iron) tablet [Pharmacy Med Name: FERROUS SULFATE 325 MG TABLET] 180 tablet 1 Sig: TAKE 1 TABLET BY MOUTH TWICE A DAY WITH FOOD Tia Ibarra MA April 01, 2025 10:35 AM ' documented in this encounterAdams County [facility]06-23-2025 NoteHNO ID: [id number] Author: GEOFFREY MOODY MA Service: ? Author Type: Helicopter Technician Type: Progress Notes Filed: 03/31/2025 14:28 Note Text: View External Labs - FOL, RBC [ID [id number]][facility] 03-31-2025 History of Present illness Narrative* Geoffrey Moody MA - 03/31/2025 2:27 PM EDT View External Labs - FOL, RBC [ID [id number]] documented in this encounterAdams County [facility]06-23-2025 Telephone encounter Note * Telephone Encounter - Shelly Roy - 03/31/2025 8:51 AM EDT Patient called in to cancel all procedures and appointments. [facility]06-23-2025 Miscellaneous Notes* Telephone Encounter - Shelly Roy - 03/31/2025 8:51 AM EDT Patient called in to cancel all procedures and appointments. documented in this encounterAdams County [facility] Center06-20-2025 NoteC[facility] History of Present illness Narrative* Tam Daugherty MA - 03/28/2025 1:26 PM EDT Scan on 03/27/2025 5:34 PM by ProviderCarmenza PA-C: Chemistry Scan on 03/27/2025 5:55 PM by ProviderCarmenza PA-C: Consultation - Hematology/Oncology Scan on 03/27/2025 6:09 PM by ProviderCarmenza PA-C: Casper Daugherty MA documented in this encounterAdams County [facility]06-18-2025 NoteHNO ID: [id number] Author: TAM DAUGHERTY MA Service: ? Author Type: Helicopter Technician Type: Progress Notes Filed: 03/26/2025 14:05 Note Text: Scan on 03/25/2025 12:39 PM by ProviderCarmenza PAGergorioC: Casper Daugherty [facility]06-18-2025 History of Present illness Narrative* Tam Daugherty MA - 03/26/2025 2:04 PM EDT Scan on 03/25/2025 12:39 PM by Carmenza Daley PA-C: Casper Daugherty MA documented in this encounterAdams County [facility] Center06-16-2025 Telephone encounter Note * Telephone Encounter - Humberto Jackosn MD - 03/24/2025 4:55 PM EDT The following approved medication requests have been transmitted electronically. Requested Prescriptions Signed Prescriptions Disp Refills dexmethylphenidate XR (FOCALIN XR) 20 mg biphasic capsule 30 capsule 0 Sig: Take 1 capsule by mouth once daily for 30 days. Authorizing Provider: HUMBERTO JACKSON MD PDMP website checked and validated. All prescriptions have been APPROPRIATELY filled. No suspiciousactivity was identified. 03/24/2025 by Humberto Jackson MD [facility]06-16-2025 Miscellaneous Notes* Telephone Encounter - Humberto Jackson MD - 03/24/2025 4:55 PM EDT The following approved medication requests have been transmitted electronically. Requested Prescriptions Signed Prescriptions Disp Refills dexmethylphenidate XR (FOCALIN XR) 20 mg biphasic capsule 30 capsule 0 Sig: Take 1 capsule by mouth once daily for 30 days. Authorizing Provider: HUMBERTO JACKSON MD PDMP website checked and validated. All prescriptions have been APPROPRIATELY filled. No suspiciousactivity was identified. 03/24/2025 by Humberto Jackson MD * Telephone Encounter - Tam Daugherty MA - 03/24/2025 8:54 AM EDT Prescription Refill Information The patient has been identified by name and date of : Yes Caregiver verified no other encounters exist for this prescription request: Yes Caregiver confirmed with patient/requestor that no other refills are due, in the near future, with this provider at this time: Yes The last office visit in the department: Does the patient have a future office visit with this provider/department: Yes Requested Prescriptions Pending Prescriptions Disp Refills dexmethylphenidate XR (FOCALIN XR) 20 mg biphasic capsule 30 capsule 0 Sig: Take 1 capsule by mouth once daily for 30 days. Tam Daugherty MA March 24, 2025 8:54 AM documented in this encounterAdams County [facility] Center06-16-2025 Telephone encounter Note * Telephone Encounter - Tam Daugherty MA - 03/24/2025 8:54 AM EDT Prescription Refill Information The patient has been identified by name and date of : Yes Caregiver verified no other encounters exist for this prescription request: Yes Caregiver confirmed with patient/requestor that no other refills are due, in the near future, with this provider at this time: Yes The last office visit in the department: Does the patient have a future office visit with this provider/department: Yes Requested Prescriptions Pending Prescriptions Disp Refills dexmethylphenidate XR (FOCALIN XR) 20 mg biphasic capsule 30 capsule 0 Sig: Take 1 capsule by mouth once daily for 30 days. Tam Daugherty MA March 24, 2025 8:54 AM [facility]06-13-2025 Discharge summary [facility] Medical Records Department [address] [place] [address] Instructions for Home/Discharge Instructions 03/21/25 1210 MR#: [id number] Acct: [id number] Name: BIANCA DELAROSA Rep #:[id number] : 1975 49 From: Jacky Jaimes DO PCP: Dr. Humberto Jackson MD Status:ADM IN Discharge Instructions Diet Discharge Diet: - (Clear liquids today, advance diet tomorrow to your usual diet) DC O2, CPAP, BIPAP needs Home O2 Discharge instructions: No Dressing / Incision Discharge Activity: Return to Normal Activity Weight Bearing Status: Full weight bearing Follow Up Care Test Results: Test results from this visit will be discussed in further detail at your follow- up appointment, if applicable. Discharge Plan Admission Admit Date/Time: 03/16/25 14:55 Primary Reason for Your Visit: Gastric cancer, gastroparesis Attending Provider: Jacky Jaimes Primary Care Provider: Humberto Jackson Consulting Providers: Tia Bergman Discharge Orders/Prescriptions Prescriptions: New fluticasone propionate 50 mcg/actuation [place],Suspension 1 spray NASAL DAILY PRN (Reason: allergic symptoms) Qty: 0 0RF ondansetron HCl 8 mg tablet 8 mg PO Q6H PRN PRN (Reason: nausea and vomiting) Qty: 40 0RF metoclopramide HCl [Reglan] 10 mg tablet 10 mg PO TID Qty: 30 0RF azithromycin [Zithromax] 500 mg tablet 500 mg PO DAILY 8 Days Qty: 8 0RF Continued multivitamin 1 EACH tablet 1 ea PO DAILY esomeprazole magnesium 40 MG capsule 40 mg PO QHS fenofibrate 50 MG capsule 54 mg PO DAILY metformin 500 mg tablet 1,000 mg PO BID doxepin 10 MG capsule 10 mg PO QHS olanzapine 2.5 MG tablet 2.5 mg PO QHS zonisamide 25 MG capsule 25 mg PO DAILY buspirone 15 mg tablet PO BID Patient Comments: TAKE 1 TABLET BY MOUTH TWICE A DAY insulin lispro protamin-lispro 100 unit/mL (75-25) insulin pen SUBCUT duloxetine 60 mg capsule,delayed release(DR/EC) PO DAILY Patient Comments: TAKE 1 CAPSULE BY MOUTH ONCE DAILY atorvastatin 80 mg tablet 80 mg PO DAILY dexmethylphenidate 20 mg capsule,ER biphasic 50-50 20 mg PO DAILY duloxetine 30 mg capsule,delayed release(DR/EC) 30 mg PO DAILY ferrous sulfate 325 mg (65 mg iron) tablet 325 mg PO BID Discontinued atorvastatin 20 mg tablet 20 mg PO DAILY Other Ambulatory Orders: CBC W/Diff, Automated (Routine) Timeframe: 20250325 Facility: [facility] - Location: Laboratory Ordered By: Dr. Jacky Jaimes Referrals / Follow Up: Humberto Jackson MD [Primary Care Provider] - Cary Chandra MD [Med Staff - Active Staff] - See Referral Note (At your scheduled appointment time) Disposition Disposition (needs filled in before D/C Order can be placed): Home, Self Care 03/21/25 1234Jacky Jaimes DO CC: Dr. Humberto Jackson MD; Dr. Tia Bergman DO ~ Signed [facility]06-13-2025 [facility] Medical Records Department [address] [place] [address] Discharge Summary 03/21/25 1234 MR#: [id number] Acct: [id number] Name: BIANCA DELAROSA Rep #: [id number] : 1975 49 From: Jacky Jaimes DO PCP: Dr. Humberto Jackson MD Status:DIS IN Location: [facility] [id number] Providers Date of Admission: 03/16/25 Date of Discharge: 03/21/25 Primary Care Physician: Dr. Humberto Jackson MD Consultations 03/16/25 15:57 Consult: Gastroenterology Routine Consulting Provider: [facility] Reason for Consult: GI bleed EMERGENT Consult: No Notified: Yes Date Notified: 03/16/25 Time Notified: 15:01 Method of Notification: ED Physician Initiated Reason For Visit: SEVERE ANEMIA Diagnosis Discharge Diagnosis (1) Gastric cancer: Status: Acute Code(s): C16.9 - Malignant neoplasm of stomach, unspecified (2) Symptomatic anemia: Status: Acute Code(s): D64.9 - Anemia, unspecified (3) Anemia: Status: Acute Code(s): D64.9 - Anemia, unspecified Plan 1. 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- requiring blood transfusion, patient's hemoglobin is stable at this time, patient will have a H H tomorrow #2 adenocarcinoma of the stomach stage IV-gastroenterology placed a stent today, patient is still having nausea, he will remain on liquids today #3 hyperlipidemia-patient is on Lipitor #4 type 2 diabetes-patient is currently on sliding scale insulin #5 chronic depression-patient is on Cymbalta Total clinical time spent by myself addressing patient's medical issues, reviewing all of his data, and collaborating with patient's care team: 35-minute Medications at Discharge Home Medications esomeprazole magnesium 40 mg capsule,delayed release 40 mg PO QHS gerd 10/10/17 fenofibrate 50 mg capsule 54 mg PO DAILY cholesterol 10/10/17 multivitamin 1 ea PO DAILY supplement 10/10/17 metformin 500 mg tablet 1,000 mg PO BID diabetes 03/22/18 doxepin 10 mg capsule 10 mg PO QHS insomnia 10/20/18 olanzapine 2.5 mg tablet 2.5 mg PO QHS insomnia 10/20/18 zonisamide 25 mg capsule 25 mg PO DAILY unknown 10/20/18 buspirone 15 mg tablet mg PO BID anxiety 04/14/23 duloxetine 60 mg capsule,delayed release mg PO DAILY depression 04/14/23 insulin lispro protamine-lispro 100 unit/mL (75-25) subcutaneous pen subcut Type 2 DM 04/14/23 atorvastatin 80 mg tablet 80 mg PO DAILY hypercholestremia 03/16/25 dexmethylphenidate 20 mg capsule,extended release [id number] 20 mg PO DAILY on hold 03/16/25 duloxetine 30 mg capsule,delayed release 30 mg PO DAILY depression 03/16/25 ferrous sulfate 325 mg (65 mg iron) tablet 325 mg PO BID anemia 03/16/25 azithromycin 500 mg tablet (Zithromax) 500 mg PO DAILY 8 days #8 tabs 03/21/25 fluticasone propionate 50 mcg/actuation nasal spray,suspension 1 spray NASAL DAILY PRN allergic symptoms #0 grams 03/21/25 metoclopramide HCl 10 mg tablet (Reglan) 10 mg PO TID #30 tabs 03/21/25 ondansetron HCl 8 mg tablet 8 mg PO Q6H PRN PRN nausea and vomiting #40 tabs 03/21/25 Hospital Course Operations None Procedures Blood transfusion and EGD Summary of Care Provided Minutes Spent on Discharge: 32 Hospital Course: This 49-year-old white male was seen in the emergency room at [facility] with complaints of weakness, exertional dyspnea, and increased heart rate on exertion. Patient has had weight loss over the past 4 months. Patient felt as if he was going to pass out the day before. Patient had blood work done approximately a week before and was noted to be anemic with a hemoglobin of 9 with the previous hemoglobin between 14 and 15 a year before. Patient was scheduled to have a colonoscopy later on in the month at [facility], he denied any blood in his stools or black tarry stools. Workup in the ER revealed the patient's hemoglobin to be 7.2, CBC showed a normal white blood cell count glucose was 238. CT of the abdomen pelvis was performed and it was markedly abnormal with a mildly distended stomach secondary to gastric pyloric circumferential wall thickening with resultant luminal narrowing and findings concerning for underlying obstructive gastric mass or outlet obstruction. There are also noted to be multiple prominent retroperitoneal lymph nodes and diffuse nodularity within the anterior mesentery and bilateral paracolic gutters concerning for peritoneal carcinomatosis. Finally there were also noted to be multiple sclerotic osseous lesions that were concerning for bony metastases. The case was discussed with gastroenterology and the patient was admitted to [place] [address] and underwent an EGD and was given a blood transfusion. EGD showed evidence of a gastric mass which was biopsied and returned as an adenocarcinoma. Patient had a large amount of food in the stoma (more content not included)...[facility]06-13-2025 Progress note [facility] Medical Records Department [address] [place] [address] Progress Note - Hospitalist 03/20/251924 MR#: [id number] Acct: [id number] Name: DEMETRIACHELISunitaBIANCA ESCALANTE Rep #:[id number] : 1975 49 From: Jacky Jaimes DO PCP: Dr. Humberto Jackson MD Status:ADM IN Location: [place] [id number] Reason for Visit Reason for Visit: Diagnoses Malignant neoplasm of stomach, unspecified (03/16/25) Secondary malignant neoplasm of bone (03/16/25) Disseminated malignant neoplasm, unspecified (03/16/25) Iron deficiency anemia, unspecified (03/16/25) Anemia, unspecified (03/16/25) Other diseases of stomach and duodenum (03/16/25) Abnormal weight loss (03/16/25) Subjective Subjective Patient was seen and examined today, he underwent an EGD today and there was no severe bleeding noted. Patient had a stent placed. He is currently on clear liquids. Family is in the room and I talkedwith him briefly. Objective Data Objective Data Vital Signs: Vital Signs Temp Pulse Resp BP Pulse Ox O2 Del Method O2 Flow Rate 99.4 F H 92 16 125/81 H 92 Room Air 3 03/20/25 18:19 03/20/25 18:19 03/20/25 18:19 03/20/25 18:19 03/20/25 18:19 03/20/25 18:19 03/20/25 16:19 Oxygen Flow Rate (L/min) 3 Oxygen Delivery Method Room Air Weight: 122.47 kg Body Mass Index (BMI) 34.7 Intake & Output: Intake and Output for Last 24 Hours 03/18/25 03/19/25 03/20/25 23:59 23:59 23:59 Intake Total 2875 / 2875 1220.58 / 1220.58 382.75 / 382.75 Output Total 800 / 800 4 / 4 Balance 2875 / 2875 420.58 / 420.58 378.75 / 378.75 Lab / Micro Data 03/21/25 05:33 03/17/25 04:09 Labs: Laboratory Results - last 24 hr 03/19/25 21:37: POC Glucose 182 H 03/20/25 06:04: POC Glucose 163 H 03/20/25 11:02: POC Glucose 177 H Micro: Microbiology 03/16/25 13:16 Stool Stool Occult Blood (YASMINE) - Final Radiography Diagnostic Testing: Radiology Impression Chest X-Ray 03/19/25 20:46 IMPRESSION: No acute cardiopulmonary abnormalities. Reading Location: [id number] Fluoroscopy 03/20/25 14:37 IMPRESSION: Intraoperative imaging provided for duodenal stenting. Reading Location: [facility] Physical Exam Narrative alert, oriented x3 and no apparent distress General Appearance: cooperative, well kempt and well developed Orientation / Consciousness: awake, oriented to person, oriented to place and oriented to time HEENT normocephalic, head/scalp atraumatic and moist oral mucous membranes Eyes PERRL, EOMs intact bilaterally and conjunctivae normal Neck supple, no JVD, thyroid normal and no carotid bruits General: trachea midline Resp normal respiratory effort, no retractions, no use of accessory muscles and clearto auscultation bilaterally Auscultation: Negative for rales, rhonchi or wheezes Cardio regular rate, regular rhythm, no murmurs, no rub and no gallops GI normal to inspection, nondistended, normoactive bowel sounds, soft to palpation,non-tender and non-distended Extremity no clubbing, cyanosis or edema Skin no rashes or lesions noted General Skin Exam: no breakdown Neuro oriented x3, CN's II-XII intact bilaterally, no focal motor deficits and no sensory deficits noted Sensorium / Orientation: awake and alert Speech: speech normal Psych affect normal Assessment & Plan Assessment/Plan (1) Gastric cancer: (2) Symptomatic anemia: (3) Anemia: PLAN: Plan 1. 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-requiring blood transfusion, patient's hemoglobin is stable at this time, patient will have a H&H tomorrow #2 adenocarcinoma of the stomach-gastroenterology placed a stent today, patient is still having nausea, he will remain on liquids today #3 hyperlipidemia-patient is on Lipitor #4 type 2 diabetes-patient is currently on sliding scale insulin #5 chronic depression-patient is on Cymbalta Total clinical time spent by myself addressing patient's medical issues, reviewing all of his data,and collaborating with patient's care team: 35-minute Charges/Coding Visit Charges Inpatient E&M: 54612 Subs Hosp L2 03/21/25 1210 Cosigner Signature (if applicable): CC: ~ Signed [facility]06-13-2025 NoteHNO ID: [id number] Author: EZRA STEIN LPN Service: ? Author Type: LICENSED NURSE Type: Progress Notes Filed: 03/21/2025 10:24 Note Text: Scan on 03/20/2025 3:59 PM by Provider, JAK Herr: [facility] History of Present illness Narrative* Ezra Stein LPN - 03/21/2025 10:20 AM EDT Scan on 03/20/2025 3:59 PM by Provider, JAK Herr: EGD documented in this encounterAdams County [facility] Center06-12-2025 Progress note Author Jacky Jaimes [facility] Note Date/Time March 21, 2025 12:1 0pm [facility] Medical Records Department [address] [place] [address] Progress Note - Hospitalist 03/20/251924 MR#: [id number] Acct: [id number] Name: BIANCA DELAROSA Rep #:[id number] : 1975 49 From: Jacky Jaimes DO PCP: Dr. Humberto Jackson MD Status:ADM IN Location: [place] [id number] Reason for Visit Reason for Visit: Diagnoses Malignant neoplasm of stomach, unspecified (03/16/25) Secondary malignant neoplasm of bone (03/16/25) Disseminated malignant neoplasm, unspecified (03/16/25) Iron deficiency anemia, unspecified (03/16/25) Anemia, unspecified (03/16/25) Other diseases of stomach and duodenum (03/16/25) Abnormal weight loss (03/16/25) Subjective Subjective Patient was seen and examined today, he underwent an EGD today and there was no severe bleeding noted. Patient had a stent placed. He is currently on clear liquids. Family is in the room and I talked with him briefly. Objective Data Objective Data Vital Signs: Vital Signs Temp Pulse Resp BP Pulse Ox O2 Del Method O2 Flow Rate 99.4 F H 92 16 125/81 H 92 Room Air 3 03/20/25 18:19 03/20/25 18:19 03/20/25 18:19 03/20/25 18:19 03/20/25 18:19 03/20/25 18:19 03/20/25 16:19 Oxygen Flow Rate (L/min) 3 Oxygen Delivery Method Room Air Weight: 122.47 kg Body Mass Index (BMI) 34.7 Intake & Output: Intake and Output for Last 24 Hours 03/18/25 03/19/25 03/20/25 23:59 23:59 23:59 Intake Total 2875 / 2875 1220.58 / 1220.58 382.75 / 382.75 Output Total 800 / 800 4 / 4 Balance 2875 / 2875 420.58 / 420.58 378.75 / 378.75 Lab / Micro Data 03/21/25 05:33 03/17/25 04:09 Labs: Laboratory Results - last 24 hr 03/19/25 21:37: POC Glucose 182 H 03/20/25 06:04: POC Glucose 163 H 03/20/25 11:02: POC Glucose 177 H Micro: Microbiology 03/16/25 13:16 Stool Stool Occult Blood (YASMINE) - Final Radiography Diagnostic Testing: Radiology Impression Chest X-Ray 03/19/25 20:46 IMPRESSION: No acute cardiopulmonary abnormalities. Reading Location: [id number] Fluoroscopy 03/20/25 14:37 IMPRESSION: Intraoperative imaging provided for duodenal stenting. Reading Location: [place] [address] Physical Exam Narrative alert, oriented x3 and no apparent distress General Appearance: cooperative, well kempt and well developed Orientation / Consciousness: awake, oriented to person, oriented to place and oriented to time HEENT normocephalic, head/scalp atraumatic and moist oral mucous membranes Eyes PERRL, EOMs intact bilaterally and conjunctivae normal Neck supple, no JVD, thyroid normal and no carotid bruits General: trachea midline Resp normal respiratory effort, no retractions, no use of accessory muscles and clearto auscultation bilaterally Auscultation: Negative for rales, rhonchi or wheezes Cardio regular rate, regular rhythm, no murmurs, no rub and no gallops GI normal to inspection, nondistended, normoactive bowel sounds, soft to palpation,non-tender and non-distended Extremity no clubbing, cyanosis or edema Skin no rashes or lesions noted General Skin Exam: no breakdown Neuro oriented x3, CN's II-XII intact bilaterally, no focal motor deficits and no sensory deficits noted Sensorium / Orientation: awake and alert Speech: speech normal Psych affect normal Assessment & Plan Assessment/Plan (1) Gastric cancer: (2) Symptomatic anemia: (3) Anemia: PLAN: Plan 1. 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-requiring blood transfusion, patient's hemoglobin is stable at this time, patient will have a H&H tomorrow #2 adenocarcinoma of the stomach-gastroenterology placed a stent today, patient is still having nausea, he will remain on liquids today #3 hyperlipidemia-patient is on Lipitor #4 type 2 diabetes-patient is currently on sliding scale insulin #5 chronic depression-patient is on Cymbalta Total clinical time spent by myself addressing patient's medical issues, reviewing all of his data, and collaborating with patient's care team: 35-minute Charges/Coding Visit Charges Inpatient E&M: 43270 Subs Hosp L2 03/21/25 1210 <Electronically signed by Jacky Jaimes DO> Cosigner Signature (if applicable): CC: ~ Signed [facility] Work Phone: 1(909) 609-551606-12-2025 Consult note Author Issac alexander [facility] Note Date/Time March 20, 2025 3:[address] [facility] Medical Records Department [address] [place] [address] Anesthesia Postop Eval II 03/20/25 1553 MR#: [id number] Acct: [id number] Name: BIANCA DELAROSA Rep #:[id number] : 1975 49 From: Issac Gil MD PCP: Dr. Humberto Jackson MD Status:ADM IN Y Race: C [address]: [address] Anesthesia Postop Eval I Sum Postop Eval Completion status Anesthesia document: Postop Eval 1 completed: Yes Anesthesia Postop Eval I Summary Anesthesia Postop Eval I Summary: Anesthesia Postop Eval I: Assessment Summary Airway patent Yes 03/20/25 15:20 ROOMING HOUSE INSPECTOR.DMAY Spontaneous unlabored Yes 03/20/25 15:20 ROOMING HOUSE INSPECTOR.DMAY respirations Mental status Awake,Calm 03/19/25 18:39 nausea No 03/20/25 15:20 ROOMING HOUSE INSPECTOR.SOUMYA Vomiting No 03/20/25 15:20 ROOMING HOUSE INSPECTOR.DMAY Anesthesia Postop Eval I: Fluid Summary Crystalloid volume administer 700 03/20/25 15:20 ROOMING HOUSE INSPECTOR.DMAY (ml) Colloids volume administered ( ml) Blood Product volume administered (ml) Total IV fluid infused 700 03/20/25 15:20 ROOMING HOUSE INSPECTOR.DMAY Anesthesia Postop Eval I: Summary Notes Anesthesia Complication No 03/20/25 15:20 ROOMING HOUSE INSPECTOR.DMAY Anesthesia Complication With insertion of 03/19/25 18:39 Comment: endoscope. Patient began vomiting large amounts of what appeared to be food. Immediately suctioned. Patient was awake enough that he seemed to protect his own airway. After 5 minutes of suctioning and vomiting. Patient was awake with baseline sats. Decision was to cancel procedure due to risk of aspiration. He will be monitored overnight. If he does well with his oxygen saturation , can bring back tomorrow but will need full intubation and general anesthesia because of risk of aspiration. Dr Micky Martinez has discussed this with family and the hospitalist Dr Micky Badillo Post-operative progress note Anesthesia: Postop Eval II Evaluation Mental status: Awake Pain Level: 0 nausea: No Vomiting: No 03/20/25 8094 <Electronically signed by Issac Gil MD > Date _ Issac Gil MD [facility] Signature: Date CC: ~ Signed [facility] Work Phone: 1(694) 281-262506-12-2025 Consult note Author Kamaljit Retana [facility] Note Date/Time March 20, 2025 3:[address] [facility] Medical Records Department [address] [place] [address] Anesthesia Postop Eval I 03/20/25 1520 MR#: [id number] Acct: [id number] Name: BIANCA DELAROSA Rep #:[id number] : 1975 49 From: Kamaljit Chatman PCP: Dr. Humberto Jackson MD Status:ADM IN Y Race: C Location: [place] [address] Anesthesia: Postop Eval I Current Vital Signs Temperature: 99.4 F Pulse Rate: 93 Blood Pressure: 125/86 Respiratory Rate: 18 Pulse Ox: 99 Assessment Airway patent: Yes Spontaneous unlabored respirations: Yes nausea: No Vomiting: No Anesthesia Complication: No Fluid Hydration Crystalloid volume administer (ml): 700 Total IV fluid infused: 700 Progress Note Anesthesia document: Postop Eval 1 completed: Yes 03/20/25 1520 <Electronically signed by Kamaljit QUIROGA> Date _ Kamaljit Retana ROOMING HOUSE INSPECTOR Cosigner Signature: Date CC: ~ Signed [facility] Work Phone: 1(357) 362-720806-12-2025 Progress note Author Jonathan Friend [facility] Note Date/Time March 20, 2025 2:22 pm [facility] Medical Records Department [address] [place] [address] Progress Note 03/20/25 1419 MR#: [id number] Acct: [id number] Name: BIANCA DELAROSA Rep #:[id number] : 1975 49 From: Jonathan Martinez DO PCP: Dr. Humberto Jackson MD Status:ADM IN Location: [place] [address] Progress Note Patient has been NPO. He will undergo egd with attempted stent placement. Physical Exam Narrative alert, oriented x3 and no apparent distress General Appearance: cooperative, well kempt and well developed Orientation / Consciousness: awake, oriented to person, oriented to place and oriented to time HEENT normocephalic, head/scalp atraumatic and moist oral mucous membranes Eyes PERRL, EOMs intact bilaterally and conjunctivae normal Neck supple, no JVD, thyroid normal and no carotid bruits General: trachea midline Resp normal respiratory effort, no retractions, no use of accessory muscles and clearto auscultation bilaterally Auscultation: Negative for rales, rhonchi or wheezes Cardio regular rate, regular rhythm, no murmurs, no rub and no gallops GI normal to inspection, nondistended, normoactive bowel sounds, soft to palpation,non-tender and non-distended Extremity no clubbing, cyanosis or edema Skin no rashes or lesions noted General Skin Exam: no breakdown Neuro oriented x3, CN's II-XII intact bilaterally, no focal motor deficits and no sensory deficits noted Sensorium / Orientation: awake and alert Speech: speech normal Psych affect normal Assessment & Plan Assessment/Plan (1) Carcinomatosis: (2) Cancer, metastatic to bone: (3) Gastric mass: (4) Anemia: (5) Symptomatic anemia: PLAN: Plan We will perform a repeat upper endoscopy to evaluate his upper GI tract and tried to place duodenal stent across the pylorus. He was explained alternatives, risk and benefits including missed any bleeding, infection, subsequent perforation, need for urgent . He will have an-ASA 3.. Visit Charges Inpatient E&M: 71220 Subs Hosp L2 03/20/25 1422 <Electronically signed by Jonathan Martinez DO> Jonathan Martinez DO Cosigner Signature (if applicable): CC: ~ Signed [facility] Work Phone: 1(610) 548-172206-12-[address] [facility] Medical Records Department [address] [place] [address] Anesthesia Postop Eval II 03/20/25 1553 MR#: [id number] Acct: [id number] Name: BIANCA DELAROSA Rep #:[id number] : 1975 49 From: Issac Gil MD PCP: Dr. Humberto Jackson MD Status:ADM IN Y Race: C Location: [facility] [id number] -1 Anesthesia Postop Eval I Sum Postop Eval Completion status Anesthesia document: Postop Eval 1 completed: Yes Anesthesia Postop Eval I Summary Anesthesia Postop Eval I Summary: Anesthesia Postop Eval I: Assessment Summary Airway patent Yes 03/20/25 15:20 ROOMING HOUSE INSPECTOR.DMAY Spontaneous unlabored Yes 03/20/25 15:20 ROOMING HOUSE INSPECTOR.DMAY respirations Mental status Awake,Calm 03/19/25 18:39 nausea No 03/20/25 15:20 ROOMING HOUSE INSPECTOR.DMAY Vomiting No 03/20/25 15:20 ROOMING HOUSE INSPECTOR.DMAY Anesthesia Postop Eval I: Fluid Summary Crystalloid volume administer 700 03/20/25 15:20 ROOMING HOUSE INSPECTOR.DMAY (ml) Colloids volume administered ( ml) Blood Product volume administered (ml) Total IV fluid infused 700 03/20/25 15:20 ROOMING HOUSE INSPECTOR.DMAY Anesthesia Postop Eval I: Summary Notes Anesthesia Complication No 03/20/25 15:20 ROOMING HOUSE INSPECTOR.DMAY Anesthesia Complication With insertion of 03/19/25 18:39 Comment: endoscope. Patient began vomiting large amounts of what appeared to be food. Immediately suctioned. Patient was awake enough that he seemed to protect his own airway. After 5 minutes of suctioning and vomiting. Patient was awake with baseline sats. Decision was to cancel procedure due to risk of aspiration. He will be monitored overnight. If he does well with his oxygen saturation , can bring back tomorrow but will need full intubation and general anesthesia because of risk of aspiration. Dr Micky Martinez has discussed this with family and the hospitalist Dr Micky Badillo Post-operative progress note Anesthesia: Postop Eval II Evaluation Mental status: Awake Pain Level: 0 nausea: No Vomiting: No 03/20/25 1553 > Date _ Issac Diggs Signature: Date CC: ~ Signed [facility]06-12-[address] [facility] Medical Records Department [address] [place] [address] EGD Report MR#: [id number] Acct: [id number] Name: BIANCA DELAROSA Rep #:[id number] : 1975 49 From: Jonathan Martinez DO PCP: Dr. Humberto Jackson MD Status:ADM IN Patient Name: Bianca Delarosa Procedure Date: 03/20/2025 2:20 PM Date of : 1975 Age: 49 Procedure: Upper GI endoscopy Indications: For dilation and stenting of pyloric stenosis Providers: Jonathan Martinez DO Medicines: Monitored Anesthesia Care Patient Profile: This is a 49 year old male. Refer to note in patient chart for documentation of history and physical. Patient has symptoms of acute abdominal cramping, acute abdominal distention, acute epigastric abdominal pain, acute dyspepsia, acute nausea and acute vomiting. Complications: No immediate complications. Procedure: Pre-Anesthesia Assessment: - Prior to the procedure, a History and Physical was performed, and patient medications and allergies were reviewed. The patient is competent. The risks and benefits of the procedure and the sedation options and risks were discussed with the patient. All questions were answered and informed consent was obtained. Patient identification and proposed procedure were verified by the nurse in the pre-procedure area. Mental Status Examination: alert and oriented. Airway Examination: normal oropharyngeal airway and neck mobility. Respiratory Examination: clear to auscultation. CV Examination: normal. ASA Grade Assessment: III - A patient with severe systemic disease. After reviewing the risks and benefits, the patient was deemed in satisfactory condition to undergo the procedure. The anesthesia plan was to use monitored anesthesia care (MAC). Immediately prior to administration of medications, the patient was re-assessed for adequacy to receive sedatives. The heart rate, respiratory rate, oxygen saturations, blood pressure, adequacy of pulmonary ventilation, and response to care were monitored throughout the procedure. The physical status of the patient was re-assessed after the procedure. After obtaining informed consent, the endoscope was passed under direct vision. Throughout the procedure, the patient's blood pressure, pulse, and oxygen saturations were monitored continuously. The Endoscope was introduced through the mouth, and advanced to the fourth part of the duodenum. Small bowel enteroscopy was deemed necessary. The upper GI endoscopy was accomplished without difficulty. The patient tolerated the procedure well. Scope In: 2:41:45 PM Scope Out: 3:06:11 PM Total Procedure Duration Time 0 hours 24 minutes 26 seconds Findings: LA Grade D (one or more mucosal breaks involving at least 75% of esophageal circumference) esophagitis with no bleeding was found 31 to 40 cm from the incisors. A large amount of food (residue) was found in the entire examined stomach. A malignant-appearing, intrinsic moderate stenosis was found in the gastric antrum, in the prepyloric region of the stomach and at the pylorus. This was traversed. This was stented with a 22 mm x 9 cm Evolution controlled-release uncovered stent. Estimated blood loss was minimal. No gross lesions were noted in the entire examined duodenum. For location marking, [Device] [MRI Compatibility]. [Clip Loan Servicing Specialist]. [Bleeding?]. Impression: - LA Grade D erosive esophagitis with no bleeding. - A large amount of food (residue) in the stomach. - Gastric stenosis was found in the gastric antrum, in the prepyloric region of the stomach and at the pylorus. Prosthesis placed. - No gross lesions in the entire examined duodenum. - No specimens collected. Recommendation: - Discharge patient to home. - Resume previous diet. - Continue present medications. Procedure Code(s): --- Professional --- 83075, Small intestinal endoscopy, enteroscopy beyond second portion of duodenum, not including ileum; with transendoscopic stent placement (includes predilation) CPT copyright 2021 [employer]. All rights reserved. The codes documented in this report are preliminary and upon sales estimator review may be revised to meet current compliance requirements. Jonathan Martinez DO 03/20/2025 3:53:23 PM This report has been signed electronically. Number of Addenda: 0 Note Initiated On: 03/20/2025 2:20 PM 03/20/25 1553 Date _ Jonathan Martinez DO Cosigner Signature: Date (if indicated) CC: Dr. Humberto Jackson MD; Jonathan Martinez DO ~ Date Dictated: 03/20/251419 Date Transcribed: Drill Setup Operator: RF Signed [facility]06-12-[address] [facility] Medical Records Department [address] [place] [address] Operative Report - CC Letter MR#: [id number] Acct: [id number] Name: BIANCA DELAROSA Rep #:[id number] : 1975 49 From: Jonathan Martinez DO PCP: Dr. Humberto Jackson MD Status:ADM IN 03/20/2025 Humberto Jackson MD Re : Upper GI endoscopy procedure for Bianca Delarosa Dear Dr. Jackson This procedure was performed on March. My impressions and recommendations are as follows: Impressions : - LA Grade D erosive esophagitis with no bleeding. - A large amount of food (residue) in the stomach. - Gastric stenosis was found in the gastric antrum, in the prepyloric region of the stomach and at the pylorus. Prosthesis placed. - No gross lesions in the entire examined duodenum. - No specimens collected. Recommendations : - Discharge patient to home. - Resume previous diet. - Continue present medications. My findings are described in the full procedure note, which is enclosed. If I can be of further assistance, please feel free to contact me at . Sincerely, Jonathan Martinez DO 03/20/2025 3:53:23 PM This report has been signed electronically. 03/20/25 1553 Date _ Jonathan Martinez DO Cosigner Signature: Date (if indicated) CC: Dr. Humberto Jackson MD; Dr. Tia Bergman DO; Dr. Jacky Jaimes DO ~ Date Dictated: 03/20/25 1420 Date Transcribed: Drill Setup Operator: RF Signed [facility]06-12-2025 Radiology Diagnostic study note [facility] Imaging Services [address] [place] [address] Fluoroscopy 1 Hr or Less MR#: [id number] Acct: [id number] Name: BIANCA DELAROSA Rep #: [id number] : 1975 M 49 From: Cezar Murguia MD PCP: Dr. Humberto Jackson MD Status: ADM IN Study:Fluoroscopy 1 Hr or Less Date of Exam: 03/20/25 Exam# [id number] Ordering Dr: Lino Martinez DO PROCEDURE: FLUOROSCOPY 1 HR OR LESS 03/20/2025 REASON FOR EXAM: EGD and duodenal stenting. TECHNIQUE: Intraoperative fluoroscopic services provided for duodenal stenting. 14.3 seconds of fluoroscopy. 6.69 mGy. 5 images were submitted. FINDINGS: Intraoperative imaging provided for duodenal stenting. RAD/Fluoroscopy 1 Hr or Less IMPRESSION: Intraoperative imaging provided for duodenal stenting. Reading Location: [place] [address] CC: Dr. Humberto Jackson MD; Jonathan Martinez DO ~ Drill Setup Operator: Signed [facility]06-12-2025 Consult note Author Issac Gil [facility] Note Date/Time March 20, 2025 1:[address] [facility] Medical Records Department [address] [place] [address] Pre-Anesthesia Evaluation 03/20/25 1324 MR#: [id number] Acct: [id number] Name: BIANCA DELAROSA Rep #:[id number] : 1975 49 From: Issac Gil MD PCP: Dr. Humberto Jackson MD Status:ADM IN Y Race: C Location: [place] [address] ASA Classification* ASA Classification ASA Classification: 3 Assessment & Plan Anesthesia* Anesthesia Assessment Anesthesia Assessment: Discussed sedation and/or anesthesia options, risks, benefits, and alternatives with patient/parents/legal guardian/POA. Questions invited. The patient/parents/legal guardian/POA seems to understand and agrees to proceedwith anesthesia plan. Reviewed the physical assessment, medical history, allergy history and patient home medications list prior to surgery/procedure/anesthetic and documented any changes. Performed airway and anesthesia risk assessments. Anesthesia Type Anesthesia Type: General (Needs ET due to possible stomach content from obstrution) Anesthesia Focused Assessment* Temperature: 98.4 F Pulse Rate: 84 Blood Pressure: 113/72 Respiratory Rate: 16 Pulse Ox: 92 Oxygen Flow Rate (L/min): 3 Airway Assessment Mouth opens: >3 cm Mallampati Score: II Labs Anesthesia Preop lab: CBC WBC 9.8 K/mm3 (4.4-11.0) 03/19/25 05:21 03/19/25 RBC 3.52 M/mm3 (4.6-6.2) L 03/19/25 05:03/19/25 Hgb 8.9 g/dL (13.0-16.5) L 03/19/25 05:21 03/19/25 Hct 27.9 % (40-54) L 03/19/25 05:03/19/25 Plt Count 367 K/mm3 (150-450) 03/19/25 05:21 03/19/25 CHEMISTRY Potassium 3.8 mmol/L (3.3-5.1) 03/17/25 04:09 03/17/25 Sodium 138 mmol/L (133-145) 03/17/25 04:09 03/17/25 Magnesium 2.2 mg/dL (1.5-2.2) 03/17/25 04:09 03/17/25 Phosphorus 3.9 mg/dL (2.7-4.5) 03/17/25 04:09 03/17/25 BUN 9 mg/dL (4-19) 03/17/25 04:09 03/17/25 Creatinine 0.72 mg/dL (0.70-1.20) 03/17/25 04:09 03/17/25 Glucose 181 mg/dL (70-99) H 03/17/25 04:09 03/17/25 POC Glucose 177 mg/dL (74-106) H 03/20/25 11:02 03/20/25 COAG PT 12.8 SECONDS (11.7-14.9) 10/22/18 05:05 Pre-Assessment Diagnosis/Proposed Procedure Planned Operative Procedure(s): EGD Stent placement duodenal Anesthesia History Anesthesia History - chief scientific officer: Anesthesia History - chief scientific officer Hx Hospitalization Any Problems With Anesthesia No 04/14/23 16:13 Cholinesterase deficiency No 04/14/23 16:13 You/Your Family Experience No 04/14/23 16:13 fever (hyperthermia) with Relationship Recent Exposure to Contagious No 04/14/23 16:13 Disease Does patient have nerve No 04/14/23 16:13 stimulator Patient instructed to have device shut off --Does patient have Pacemaker No 03/20/25 08:30 or ICD? When Was Last Pacemaker Check QUESTION #4 FULL TEXT: You/Your Family Experience fever (hyperthermia) with Anesthesia Last Oral Intake Last Oral intake: Last Oral Intake NPO since 00:00 03/20/25 08:30 Meds taken in AM with sips of water? Meds patient instructed to take am of surgery PONV PONV - chief scientific officer: PONV - chief scientific officer Female HX of Motion Sickness HX of N/V After Surgery Non-Smoker Duration of Surgery greater than 60 minutes Number of Risk Factors PONV Score Height & Weight Height & Weight: Anesthesia: Height & Weight Height 6 ft 2 in 03/20/25 13:19 Weight: 122.47 kg 03/20/25 13:19 Body Mass Index (BMI) 34.7 03/20/25 13:19 Respiratory Assessment Respiratory Assessment - chief scientific officer: Respiratory Tract Infection Hx - chief scientific officer Hx Respiratory Tract Infection No 04/14/23 16:13 STOP Sleep Apnea STOP Sleep Apnea - chief scientific officer: STOP Sleep Apnea - chief scientific officer Hx Hypertension Yes: recently pre htn 03/16/25 15:56 Hx Sleep Apnea Yes 03/16/25 15:56 CPAP No 03/17/25 13:30 BIPAP No 03/16/25 15:56 Do you snore loudly (louder than talking or can be heard Do you often feel tired/ fatigued/ sleepy during daytime? Has anyone observed you stop breathing during sleep? STOP Results Positive 03/17/25 13:30 QUESTION #5 FULL TEXT : Do you snore loudly (louder than talking or can be heard through closed doors)? 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 Specify any problems Hx of Preganancy in last 3 N/A 03/16/25 15:56 Months Nurse Filling Out Transfusion NMARTY 03/16/25 15:56 & Questions: Date: 03/16/25 03/16/25 15:56 Time: 16:13 03/16/25 15:56 Patient unable to answer at this time (ie. confused, unrespo /Reproduction History /Reproductive History - chief scientific officer: /Reproductive Hx- chief scientific officer Hx Now Gestational Age (in weeks): EDC: Hx Hx Para Hx Section SAB No 04/14/23 16:13 Active Medications Active Medications: Current Medications Generic Name Dose Route Start Last Admin Trade Name Freq PRN Reason Stop Dose Admin Acetaminophen 650 mg 03/16/25 15:57 03/19/25 03:04 Acetaminophen 325 Mg Tablet PO 650 mg Q6H PRN PRN Administration Pain 1-10 Or Fever>100.7 Albuterol Sulfate 2.5 mg 03/16/25 15:57 Albuterol 2.5 Mg/3 Ml Vial.Neb. INHALATION Q2H PRN PRN SOB &/OR WHEEZING Atorvastatin Calcium 80 mg 03/17/25 10:00 03/20/25 10:00 Atorvastatin Calcium 80 Mg Tablet PO Not Given DAILY SIENA Buspirone HCl 15 mg 03/16/25 22:00 03/20/25 10:00 Buspirone 15 Mg Tablet PO Not Given BID SIENA Doxepin HCl 10 mg 03/16/25 22:00 03/19/25 21:39 Doxepin Hydrochloride 10 Mg Capsule PO 10 mg QHS SIENA Administration Duloxetine HCl 60 mg 03/17/25 10:00 03/20/25 10:00 Duloxetine Hcl 60 Mg Capsule PO Not Given DAILY SIENA Fenofibrate 48 mg 03/17/25 10:00 03/20/25 10:00 Fenofibrate 48 Mg Tablet PO Not Given DAILY SIENA Fluticasone Propionate 1 spray 03/16/25 15:57 Fluticasone 0.05% 1 [place] Nasal.Sry NASAL DAILY PRN allergic symptoms Sodium Chloride 250 mls @ 15 mls/hr 03/16/25 16:19 IV .[id number] PRN Saline Flush Sodium Chloride 250 mls @ 15 mls/hr 03/16/25 16:19 IV .[id number] PRN Additional IVPB Infusion Lactated Ringer's 1,000 mls @ 15 mls/hr 03/17/25 12:30 03/19/25 13:36 IV Infused .Q48H SIENA Infusion Azithromycin 500 mg/ Sodium 255 mls @ 255 mls/hr 03/17/25 20:00 03/19/25 22:38 Chloride IV Infused QHS SIENA Infusion Lactated Ringer's 1,000 mls @ 15 mls/hr 03/19/25 16:45 03/20/25 12:39 IV 0 mls/hr .Q48H SIENA Infusion Lactated Ringer's 1,000 mls @ 15 mls/hr 03/20/25 13:30 IV .Q48H SIENA Insulin Human Lispro 0 unit 03/16/25 16:00 03/20/25 12:12 Insulin Lispro 100 Unit/Ml Insuln.Pen SC Not Given ACHS [facility] Protocol Lorazepam 1 mg 03/19/25 20:40 03/19/25 21:38 Lorazepam 2 Mg/Ml Wch Syringe IV 1 mg Q8 PRN Administration ANXIETY Melatonin 3 mg 03/16/25 15:57 03/18/25 22:19 Melatonin 3 Mg Tablet PO 3 mg QHS PRN PRN Administration INSOMNIA Metoclopramide HCl 10 mg 03/18/25 00:00 03/20/25 12:19 Metoclopramide 10 Mg/2 Ml Vial IV 10 mg Q6 SIENA Administration Multivitamins 1 tablet 03/17/25 08:00 03/20/25 08:17 Multivitamins,Therapeutic Tablet PO Not Given DAILYCM [facility] Nutritional Formula (Lactose Free) 120 ml 03/17/25 10:00 03/20/25 08:17 Ensure Plus High Protein 120 Ml Liquid PO Not Given 4X/DAY SIENA Olanzapine 5 mg 03/16/25 22:00 03/16/25 22:43 Olanzapine 5 Mg/Tab Tab.Rapdis PO 5 mg QHS SIENA Administration Protocol Ondansetron HCl 4 mg 03/16/25 15:57 03/19/25 09:52 Ondansetron 4 Mg/2 Ml Vial IV 4 mg Q8H PRN PRN Administration NAUSEA/VOMITING Pantoprazole Sodium 40 mg 03/20/25 10:00 03/20/25 10:00 Pantoprazole Sodium 40 Mg Tablet PO Not Given BID SIENA Senna/Docusate Sodium 2 tablet 03/16/25 15:57 Senna/Docusate Sodium 1 Tablet PO BID PRN PRN Constipation Sodium Chloride 10 - 40 ml 03/16/25 16:19 03/20/25 00:07 0.9% Saline Lock 10 Ml Syringe IV 20 ml UD PRN Administration SALINE FLUSH [facility] Medical History History of rectal abscess Multiple thyroid nodules Restrictive airway disease Abnormal chest CT Pneumonia Acute respiratory failure Shortness of breath Community acquired pneumonia Chronic headache Acute respiratory failure with hypoxia GERD (gastroesophageal reflux disease) Anxiety and depression Diabetes mellitus, type II Obesity (BMI 30-39.9) HLD (hyperlipidemia) MIKE (obstructive sleep apnea) Home Medications ?Medication ?Instructions ?Recorded ?Last Taken ?Type esomeprazole magnesium 40 mg 40 mg PO QHS gerd 8 03/15/25 22:00 History capsule,delayed release 40 mg fenofibrate 50 mg capsule 54 mg PO DAILY cholesterol 0 10/10/17 03/16/25 08:00 History 54 mg multivitamin 1 ea PO DAILY supplement 11/2603/16/25 08:00 History 1 ea atorvastatin 20 mg tablet 20 mg PO DAILY high choleste rol 03/22/18 03/16/25 08:00 History 20 mg metformin 500 mg tablet 1,000 mg PO BID diabetes 03/16/25 08:00 History 1,000 mg doxepin 10 mg capsule 10 mg PO QHS insomnia 03/15/25 22:00 History 10 mg olanzapine 2.5 mg tablet 2.5 mg PO QHS insomnia 10/2003/15/25 22:00 History 2.5 mg zonisamide 25 mg capsule 25 mg PO DAILY unknown 10/2003/16/25 08:00 History 25 mg buspirone 15 mg tablet mg PO BID anxiety 04/14/23 0 03/16/25 08:00 History 15 mg duloxetine 60 mg capsule,delayed mg PO DAILY depressio n 04/14/23 03/16/25 08:00 History release 60 mg insulin lispro protamine-lispro subcut Type 2 DM 04/14 Unknown History 100 unit/mL (75-25) subcutaneous pen atorvastatin 80 mg tablet 80 mg PO DAILY hypercholestr emia 03/16/25 Unknown History dexmethylphenidate 20 mg 20 mg PO DAILY on hold 03/16 Unknown History capsule,extended release [id number] Held on 03/16/25. Instructions: Order Changed duloxetine 30 mg capsule,delayed 30 mg PO DAILY depres brittni 03/16/25 Unknown History release ferrous sulfate 325 mg (65 mg 325 mg PO BID anemia 06/02 Unknown History iron) tablet Allergy/AdvReac Type Severity Reaction Status Date / Time citalopram Allergy Unknown Unknown Verified 03/17/25 12:23 venlafaxine Allergy Unknown Unknown Verified 03/17/25 12:23 metoclopramide (From Reglan) Allergy weirds me Verified 03/17/25 12:23 out sertraline (From Zoloft) Allergy sexual Verified 03/17/25 12:23 side effects topiramate (From Topamax) Allergy Unknown Verified 03/17/25 12:23 Family History Father Colon cancer at age 53 Heart disease Myocardial infarction Surgical History Hx of drainage of abscess (~04/2023) Hx of appendectomy Hx of tonsillectomy Social History household members: spouse housing: house current occupational status: employed 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 03/20/25 1325 <Electronically signed by Issac Gil MD > Date _ Issac Gil MD Cosigner Signature: Date CC: ~ Signed [facility] Work Phone: 1(944) 577-484006-12-[address] [facility] Medical Records Department [address] [place] [address] Anesthesia Postop Eval I 03/20/25 1520 MR#: [id number] Acct: [id number] Name: BIANCA DELAROSA Rep #:[id number] : 1975 49 From: Kamaljit Chatman PCP: Dr. Humberto Jackson MD Status:ADM IN Y Race: C Location: [place] [address] Anesthesia: Postop Eval I Current Vital Signs Temperature: 99.4 F Pulse Rate: 93 Blood Pressure: 125/86 Respiratory Rate: 18 Pulse Ox: 99 Assessment Airway patent: Yes Spontaneous unlabored respirations: Yes nausea: No Vomiting: No Anesthesia Complication: No Fluid Hydration Crystalloid volume administer (ml): 700 Total IV fluid infused: 700 Progress Note Anesthesia document: Postop Eval 1 completed: Yes 03/20/25 1520 RNA> Date _ Kamaljit Retana ROOMING HOUSE INSPECTOR Cosigner Signature: Date CC: ~ Signed [facility]06-12-2025 Progress note [facility] Medical Records Department [address] [place] [address] Progress Note 03/20/25 1419 MR#: [id number] Acct: [id number] Name: BIANCA DELAROSA Rep #:[id number] : 1975 49 From: Jonathan Martinez DO PCP: Dr. Humberto Jackson MD Status:ADM IN Location: [place] [address] Progress Note Patient has been NPO. He will undergo egd with attempted stent placement. Physical Exam Narrative alert, oriented x3 and no apparent distress General Appearance: cooperative, well kempt and well developed Orientation / Consciousness: awake, oriented to person, oriented to place and oriented to time HEENT normocephalic, head/scalp atraumatic and moist oral mucous membranes Eyes PERRL, EOMs intact bilaterally and conjunctivae normal Neck supple, no JVD, thyroid normal and no carotid bruits General: trachea midline Resp normal respiratory effort, no retractions, no use of accessory muscles and clearto auscultation bilaterally Auscultation: Negative for rales, rhonchi or wheezes Cardio regular rate, regular rhythm, no murmurs, no rub and no gallops GI normal to inspection, nondistended, normoactive bowel sounds, soft to palpation,non-tender and non-distended Extremity no clubbing, cyanosis or edema Skin no rashes or lesions noted General Skin Exam: no breakdown Neuro oriented x3, CN's II-XII intact bilaterally, no focal motor deficits and no sensory deficits noted Sensorium / Orientation: awake and alert Speech: speech normal Psych affect normal Assessment & Plan Assessment/Plan (1) Carcinomatosis: (2) Cancer, metastatic to bone: (3) Gastric mass: (4) Anemia: (5) Symptomatic anemia: PLAN: Plan We will perform a repeat upper endoscopy to evaluate his upper GI tract and tried to place duodenalstent across the pylorus. He was explained alternatives, risk and benefits including missed any bleeding, infection, subsequent perforation, need for urgent . He will have an-ASA 3.. Visit Charges Inpatient E&M: 44983 Subs Hosp L2 03/20/25 1422 Jonathan Martinez DO Cosigner Signature (if applicable): CC: ~ Signed [facility]06-12-[address] [facility] Medical Records Department [address] [place] [address] Pre-Anesthesia Evaluation 03/20/25 1324 MR#: [id number] Acct: [id number] Name: BIANCA DELAROSA Rep #:[id number] : 1975 49 From: Issac Gil MD PCP: Dr. Humberto Jackson MD Status:ADM IN Y Race: C Location: [place] [address] ASA Classification* ASA Classification ASA Classification: 3 Assessment & Plan Anesthesia* Anesthesia Assessment Anesthesia Assessment: Discussed sedation and/or anesthesia options, risks, benefits, and alternatives with patient/parents/legal guardian/POA. Questions invited. The patient/parents/legal guardian/POA seems to understand and agrees to proceedwith anesthesia plan. Reviewed the physical assessment, medical history, allergy history and patient home medications list prior to surgery/procedure/anesthetic and documented any changes. Performed airway and anesthesia risk assessments. Anesthesia Type Anesthesia Type: General (Needs ET due to possible stomach content from obstrution) Anesthesia Focused Assessment* Temperature: 98.4 F Pulse Rate: 84 Blood Pressure: 113/72 Respiratory Rate: 16 Pulse Ox: 92 Oxygen Flow Rate (L/min): 3 Airway Assessment Mouth opens: >3 cm Mallampati Score: II Labs Anesthesia Preop lab: CBC WBC 9.8 K/mm3 (4.4-11.0) 03/19/25 05:21 03/19/25 RBC 3.52 M/mm3 (4.6-6.2) L 03/19/25 05:21 03/19/25 Hgb 8.9 g/dL (13.0-16.5) L 03/19/25 05:21 03/19/25 Hct 27.9 % (40-54) L 03/19/25 05:21 03/19/25 Plt Count 367 K/mm3 (150-450) 03/19/25 05:21 03/19/25 CHEMISTRY Potassium 3.8 mmol/L (3.3-5.1) 03/17/25 04:09 03/17/25 Sodium 138 mmol/L (133-145) 03/17/25 04:09 03/17/25 Magnesium 2.2 mg/dL (1.5-2.2) 03/17/25 04:09 03/17/25 Phosphorus 3.9 mg/dL (2.7-4.5) 03/17/25 04:09 03/17/25 BUN 9 mg/dL (4-19) 03/17/25 04:09 03/17/25 Creatinine 0.72 mg/dL (0.70-1.20) 03/17/25 04:09 03/17/25 Glucose 181 mg/dL (70-99) H 03/17/25 04:09 03/17/25 POC Glucose 177 mg/dL (74-106) H 03/20/25 11:02 03/20/25 COAG PT 12.8 SECONDS (11.7-14.9) 10/22/18 05:05 Pre-Assessment Diagnosis/Proposed Procedure Planned Operative Procedure(s): EGD Stent placement duodenal Anesthesia History Anesthesia History - chief scientific officer: Anesthesia History - chief scientific officer Hx Hospitalization Any Problems With Anesthesia No 04/14/23 16:13 Cholinesterase deficiency No 04/14/23 16:13 You/Your Family Experience No 04/14/23 16:13 fever (hyperthermia) with Relationship Recent Exposure to Contagious No 04/14/23 16:13 Disease Does patient have nerve No 04/14/23 16:13 stimulator Patient instructed to have device shut off --Does patient have Pacemaker No 03/20/25 08:30 or ICD? When Was Last Pacemaker Check QUESTION #4 FULL TEXT: You/Your Family Experience fever (hyperthermia) with Anesthesia Last Oral Intake Last Oral intake: Last Oral Intake NPO since 00:00 03/20/25 08:30 Meds taken in AM with sips of water? Meds patient instructed to take am of surgery PONV PONV - chief scientific officer: PONV - chief scientific officer Female HX of Motion Sickness HX of N/V After Surgery Non-Smoker Duration of Surgery greater than 60 minutes Number of Risk Factors PONV Score Height & Weight Height & Weight: Anesthesia: Height & Weight Height 6 ft 2 in 03/20/25 13:19 Weight: 122.47 kg 03/20/25 13:19 Body Mass Index (BMI) 34.7 03/20/25 13:19 Respiratory Assessment Respiratory Assessment - chief scientific officer: Respiratory Tract Infection Hx - chief scientific officer Hx Respiratory Tract Infection No 04/14/23 16:13 STOP Sleep Apnea STOP Sleep Apnea - chief scientific officer: STOP Sleep Apnea - chief scientific officer Hx Hypertension Yes: recently pre htn 03/16/25 15:56 Hx Sleep Apnea Yes 03/16/25 15:56 CPAP No 03/17/25 13:30 BIPAP No 03/16/25 15:56 Do you snore loudly (louder than talking or can be heard Do you often feel tired/ fatigued/ sleepy during daytime? Has anyone observed you stop breathing during sleep? STOP Results Positive 03/17/25 13:30 QUESTION #5 FULL TEXT : Do you snore loudly (louder than talking or can be heard through closeddoors)? 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 Specify any problems Hx of Preganancy in last 3 N/A 03/16/25 15:56 Months Nurse Filling Out Transfusion NMARTY 03/16/25 15:56 & Questions: Date: 03/16/25 03/16/25 15:56 Time: 16:13 03/16/25 15:56 Patient unable to answer at this time (ie. confused, unrespo /Reproduction History /Reproductive History - chief scientific officer: /Reproductive Hx- chief scientific officer Hx Now Gestational Age (in weeks): EDC: Hx Hx Para Hx Section SAB No 04/14/23 16:13 Active Medications Active Medications: Current Medications Generic Name Dose Route Start Last Admin Trade Name Freq PRN Reason Stop Dose Admin Acetaminophen 650 mg 03/16/25 15:57 03/19/25 03:04 Acetaminophen 325 Mg Tablet PO 650 mg Q6H PRN PRN Administration Pain 1-10 Or Fever>100.7 Albuterol Sulfate 2.5 mg 03/16/25 15:57 Albuterol 2.5 Mg/3 Ml Vial.Neb. INHALATION Q2H PRN PRN SOB &/OR WHEEZING Atorvastatin Calcium 80 mg 03/17/25 10:00 03/20/25 10:00 Atorvastatin Calcium 80 Mg Tablet PO Not Given DAILY SIENA Buspirone HCl 15 mg 03/16/25 22:00 03/20/25 10:00 Buspirone 15 Mg Tablet PO Not Given BID SIENA Doxepin HCl 10 mg 03/16/25 22:00 03/19/25 21:39 Doxepin Hydrochloride 10 Mg Capsule PO 10 mg QHS SIENA Administration Duloxetine HCl 60 mg 03/17/25 10:00 03/20/25 10:00 Duloxetine Hcl 60 Mg Capsule PO Not Given DAILY SIENA Fenofibrate 48 mg 03/17/25 10:00 03/20/25 10:00 Fenofibrate 48 Mg Tablet PO Not Given DAILY SIENA Fluticasone Propionate 1 spray 03/16/25 15:57 Fluticasone 0.05% 1 [place] Nasal.Sry NASAL DAILY PRN allergic symptoms Sodium Chloride 250 mls @ 15 mls/hr 03/16/25 16:19 IV .[id number] PRN Saline Flush Sodium Chloride 250 mls @ 15 mls/hr 03/16/25 16:19 IV .[id number] PRN Additional IVPB Infusion Lactated Ringer's 1,000 mls @ 15 mls/hr 03/17/25 12:30 03/19/25 13:36 IV Infused .Q48H SIENA Infusion Azithromycin 500 mg/ Sodium 255 mls @ 255 mls/hr 03/17/25 20:00 03/19/25 22:38 Chloride IV Infused QHS SIENA Infusion Lactated Ringer's 1,000 mls @ 15 mls/hr 03/19/25 16:45 03/20/25 12:39 IV 0 mls/hr .Q48H SIENA Infusion Lactated Ringer's 1,000 mls @ 15 mls/hr 03/20/25 13:30 IV .Q48H SIENA Insulin Human Lispro 0 unit 03/16/25 16:00 03/20/25 12:12 Insulin Lispro 100 Unit/Ml Insuln.Pen SC Not Given ACHS [facility] Protocol Lorazepam 1 mg 03/19/25 20:40 03/19/25 21:38 Lorazepam 2 Mg/Ml Wch Syringe IV 1 mg Q8 PRN Administration ANXIETY Melatonin 3 mg 03/16/25 15:57 03/18/25 22:19 Melatonin 3 Mg Tablet PO 3 mg QHS PRN PRN Administration INSOMNIA Metoclopramide HCl 10 mg 03/18/25 00:00 03/20/25 12:19 Metoclopramide 10 Mg/2 Ml Vial IV 10 mg Q6 SIENA Administration Multivitamins 1 tablet 03/17/25 08:00 03/20/25 08:17 Multivitamins,Therapeutic Tablet PO Not Given DAILYCM [facility] Nutritional Formula (Lactose Free) 120 ml 03/17/25 10:00 03/20/25 08:17 Ensure Plus High Protein 120 Ml Liquid PO Not Given 4X/DAY SIENA Olanzapine 5 mg 03/16/25 22:00 03/16/25 22:43 Olanzapine 5 Mg/Tab Tab.Rapdis PO 5 mg QHS SIENA Administration Protocol Ondansetron HCl 4 mg 03/16/25 15:57 03/19/25 09:52 Ondansetron 4 Mg/2 Ml Vial IV 4 mg Q8H PRN PRN Administration NAUSEA/VOMITING Pantoprazole Sodium 40 mg 03/20/25 10:00 03/20/25 10:00 Pantoprazole Sodium 40 Mg Tablet PO Not Given BID SIENA Senna/Docusate Sodium 2 tablet 03/16/25 15:57 Senna/Docusate Sodium 1 Tablet PO BID PRN PRN Constipation Sodium Chloride 10 - 40 ml 03/16/25 16:19 03/20/25 00:07 0.9% Saline Lock 10 Ml Syringe IV 20 ml UD PRN Administration SALINE FLUSH [facility] Medical History History of rectal abscess Multiple thyroid nodules Restrictive airway disease Abnormal chest CT Pneumonia Acute respiratory failure Shortness of breath Community acquired pneumonia Chronic headache Acute respiratory failure with hypoxia GERD (gastroesophageal reflux disease) Anxiety and depression Diabetes mellitus, type II Obesity (BMI 30-39.9) HLD (hyperlipidemia) MIKE (obstructive sleep apnea) Home Medications ?Medication ?Instructions ?Recorded ?Last Taken ?Type esomeprazole magnesium 40 mg 40 mg PO QHS gerd 8 03/15/25 22:00 History capsule,delayed release 40 mg fenofibrate 50 mg capsule 54 mg PO DAILY cholesterol 0 10/10/17 03/16/25 08:00 History 54 mg multivitamin 1 ea PO DAILY supplement 11/2603/16/25 08:00 History 1 ea atorvastatin 20 mg tablet 20 mg PO DAILY high choleste rol 03/22/18 03/16/25 08:00 History 20 mg metformin 500 mg tablet 1,000 mg PO BID diabetes 03/16/25 08:00 History 1,000 mg doxepin 10 mg capsule 10 mg PO QHS insomnia 03/15/25 22:00 History 10 mg olanzapine 2.5 mg tablet 2.5 mg PO QHS insomnia 10/2003/15/25 22:00 History 2.5 mg zonisamide 25 mg capsule 25 mg PO DAILY unknown 10/2003/16/25 08:00 History 25 mg buspirone 15 mg tablet mg PO BID anxiety 04/14/23 0 03/16/25 08:00 History 15 mg duloxetine 60 mg capsule,delayed mg PO DAILY depressio n 04/14/23 03/16/25 08:00 History release 60 mg insulin lispro protamine-lispro subcut Type 2 DM 04/14 Unknown History 100 unit/mL (75-25) subcutaneous pen atorvastatin 80 mg tablet 80 mg PO DAILY hypercholestr emia 03/16/25 Unknown History dexmethylphenidate 20 mg 20 mg PO DAILY on hold 03/16 Unknown History capsule,extended release [id number] Held on 03/16/25. Instructions: Order Changed duloxetine 30 mg capsule,delayed 30 mg PO DAILY depres brittni 03/16/25 Unknown History release ferrous sulfate 325 mg (65 mg 325 mg PO BID anemia 06/02 Unknown History iron) tablet Allergy/AdvReac Type Severity Reaction Status Date / Time citalopram Allergy Unknown Unknown Verified 03/17/25 12:23 venlafaxine Allergy Unknown Unknown Verified 03/17/25 12:23 metoclopramide (From Reglan) Allergy weirds me Verified 03/17/25 12:23 out sertraline (From Zoloft) Allergy sexual Verified 03/17/25 12:23 side effects topiramate (From Topamax) Allergy Unknown Verified 03/17/25 12:23 Family History Father Colon cancer at age 53 Heart disease Myocardial infarction Surgical History Hx of drainage of abscess (~04/2023) Hx of appendectomy Hx of tonsillectomy Social History household members: spouse housing: house current occupational status: employed 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 03/20/25 1325 > Date _ Issac Gil MD Cosigner Signature: Date CC: ~ Signed [facility]06[facility]12[facility] History of Present illness Narrative* Ezra Stein LPN - 03/20/2025 7:19 AM EDT Scan on 03/19/2025 6:36 PM by ProviderCarmenza PA-C: EGD Scan on 03/19/2025 6:37 PM by ProviderCarmenza PA-C: Letters [facility] Radiology Diagnostic study note [facility] Imaging Services [address], [place] [id number] Chest 1 View (Portable) MR#: [id number] Acct: [id number] Name: BIANCA DELAROSA Rep #: [id number] : 1975 M 49 From: Gary Beck MD PCP: Dr. Humberto Jackson MD Status: ADM IN Study:Chest 1 View (Portable) Date of Exam: 03/19/25 Exam# [id number] Ordering Dr: Jacky Mckeon DO PROCEDURE: CHEST 1 VIEW (PORTABLE) 03/19/2025 REASON FOR EXAM: ASPIRATION TECHNIQUE: Frontal view of the chest. COMPARISON: 03/16/2025. FINDINGS: The heart is normal in size. The mediastinum is normal in contour. The lungs are clear. No acute osseous abnormalities. RAD/Chest 1 View (Portable) IMPRESSION: No acute cardiopulmonary abnormalities. Reading Location: [place] [address] CC: Dr. Humberto Jackson MD; Dr. Jacky Jaimes DO ~ Drill Setup Operator: Signed [facility]06-11-2025 Progress note Author Jacky Jaimes [facility] Note Date/Time March 19, 2025 6:41 pm [facility] Medical Records Department [address] [place] [address] Progress Note - Hospitalist 03/19/25 1839 MR#: [id number] Acct: [id number] Name: BIANCA DELAROSA Rep #:[id number] : 1975 49 From: Jacky Jaimes DO PCP: Dr. Humberto Jackson MD Status:ADM IN Location: [place] [address] Hospitalist Note Patient had a CT of the abdomen and pelvis today which showed the presence of some food in the stomach, due to concerns of gastric outlet obstruction, gastroenterology decided to attempt an endoscopy to see if a stent could be inserted to keep the pylorus open, patient had an episode of aspiration before the scope was completed and the scope attempt was stopped, patient is currently in PACU on 2 L of oxygen and does not appear to be in respiratory distress. He will return to [place] [address] on continuous pulse ox, they will attempt another EGD tomorrow with the patient being intubated. 03/19/251840 <Electronically signed by Jacky Jaimes DO> Cosigner Signature (if applicable): CC: ~ Signed [facility] Work Phone: 1(422) 539-866606-11-2025 Consult note Author Issac Gil [facility] Note Date/Time March 19, 2025 6:[address] [facility] Medical Records Department [address] [place] [address] Anesthesia Postop Eval I 03/19/251835 MR#: [id number] Acct: [id number] Name: BIANCA DELAROSA Rep #:[id number] : 1975 49 From: Issac Gil MD PCP: Dr. Humberto Jackson MD Status:ADM IN Y Race: C Location: [place] [address] Anesthesia: Postop Eval I Current Vital Signs Temperature: 99 F Pulse Rate: 102 Blood Pressure: 135/84 Respiratory Rate: 16 Pulse Ox: 96 Oxygen Delivery Method: Nasal Cannula Oxygen Flow Rate (L/min): 3 Assessment Airway patent: Yes Spontaneous unlabored respirations: Yes Mental status: Awake nausea: No Vomiting: No Anesthesia Complication: Yes Anesthesia Complication Comment:: With insertion ofendoscope. Patient began vomiting large amounts of what appeared to be food. Immediately suctioned. Patient was awake enough that he seemed to protect his own airway. After 5 minutes of suctioning and vomiting. Patient was awake withbaseline sats. Decision was to cancel procedure due to risk of aspiration. He will be monitored overnight. If he does well with his oxygen saturation, can bring back tomorrow but will need full intubation and general anesthesia becauseof risk of aspiration. Dr. Martinez has discussed this with family and the hospitalist Dr. Darrick Badillo Fluid Hydration Crystalloid volume administer (ml): 50 Total IV fluid infused: 50 Progress Note Anesthesia document: Postop Eval 1 completed: Yes 03/19/251838 <Electronically signed by Issac Gil MD > Date _ Issac Gil MD Cosigner Signature: Date CC: ~ Signed [facility] Work Phone: 1(582) 244-276106-11-2025 Consult note Author Issac Gil [facility] Note Date/Time March 19, 2025 6:[address] [facility] Medical Records Department [address] [facility] [place] [address] Anesthesia Postop Eval II 03/19/25 1839 MR#: [id number] Acct: [id number] Name: BIANCA DELAROSA Rep #:[id number] : 1975 49 From: Issac Gil MD PCP: Dr. Humberto Jackson MD Status:ADM IN Y Race: C Location: [place] [address] Anesthesia Postop Eval I Sum Postop Eval Completion status Anesthesia document: Postop Eval 1 completed: Yes Anesthesia Postop Eval I Summary Anesthesia Postop Eval I Summary: Anesthesia Postop Eval I: Assessment Summary Airway patent Yes 03/19/25 18:39 Spontaneous unlabored Yes 03/19/25 18:39 respirations Mental status Awake 03/19/25 18:39 nausea No 03/19/25 18:39 Vomiting No 03/19/25 18:39 Anesthesia Postop Eval I: Fluid Summary Crystalloid volume administer 50 03/19/25 18:39 (ml) Colloids volume administered ( ml) Blood Product volume administered (ml) Total IV fluid infused 50 03/19/25 18:39 Anesthesia Postop Eval I: Summary Notes Anesthesia Complication Yes 03/19/25 18:39 Anesthesia Complication With insertion of 03/19/25 18:39 Comment: endoscope. Patient began vomiting large amounts of what appeared to be food. Immediately suctioned. Patient was awake enough that he seemed to protect his own airway. After 5 minutes of suctioning and vomiting. Patient was awake with baseline sats. Decision was to cancel procedure due to risk of aspiration. He will be monitored overnight. If he does well with his oxygen saturation , can bring back tomorrow but will need full intubation and general anesthesia because of risk of aspiration. Dr Micky Martinez has discussed this with family and the hospitalist Dr Micky Badillo Post-operative progress note Anesthesia: Postop Eval II Evaluation Mental status: Awake and Calm Pain Level: 0 nausea: No Vomiting: No 03/19/251838 <Electronically signed by Issac Gil MD > Date _ Issac Gil MD Cosigner Signature: Date CC: ~ Signed [facility] Work Phone: 1(922) 978-299406-11-2025 Progress note Author [facility] Note Date/Time March 19, 2025 6:39 pm [facility] Medical Records Department [address] [place] [address] Progress Note - Hospitalist 03/19/251833 MR#: [id number] Acct: [id number] Name: BIANCA DELAROSA Rep #:[id number] : 1975 49 From: Jacky Jaimes DO PCP: Dr. Humberto Jackson MD Status:ADM IN Location: [place] [address] Reason for Visit Reason for Visit: Diagnoses Secondary malignant neoplasm of bone (03/16/25) Disseminated malignant neoplasm, unspecified (03/16/25) Iron deficiency anemia, unspecified (03/16/25) Anemia, unspecified (03/16/25) Other diseases of stomach and duodenum (03/16/25) Abnormal weight loss (03/16/25) Subjective Subjective Patient was seen and examined today earlier, he was supposed to go down for an EGD today. He was nervous so I gave him some IV Ativan Objective Data Objective Data Vital Signs: Vital Signs Temp Pulse Resp BP Pulse Ox O2 Del Method O2 Flow Rate 99.6 F H 103 H 18 106/73 98 Nasal Cannula 2 03/19/25 16:49 03/19/25 16:49 03/19/25 16:49 03/19/25 16:49 03/19/25 16:49 03/19/25 14:40 03/19/25 16:49 Oxygen Flow Rate (L/min) 2 Oxygen Delivery Method Nasal Cannula Weight: 122.47 kg Body Mass Index (BMI) 34.7 Intake & Output: Intake and Output for Last 24 Hours 03/17/25 03/18/25 03/19/25 23:59 23:59 23:59 Intake Total 1510.17 / 1510.17 2875 / 2875 965.58 / 965.58 Output Total 800 / 800 Balance 1508.17 / 1508.17 2875 / 2875 165.58 / 165.58 Lab / Micro Data 03/19/25 05:21 03/17/25 04:09 Labs: Laboratory Results - last 24 hr 03/16/25 13:12: Crossmatch See Detail 03/18/25 21:20: POC Glucose 169 H 03/19/25 05:21: WBC 9.8, RBC 3.52 L, Hgb 8.9 L, Hct 27.9 L, MCV 79.3 L, MCH 25.3L, MCHC 31.9 L, RDW Std Deviation 44.8 H, RDW Coeff of Katie 16.6 H, Plt Count 367, MPV 11.0, Immature Gran % (Auto) 0.600, Neut % (Auto) 68.9, Lymph % (Auto) 21.2, [place] % (Auto) 6.8, Eos % (Auto) 2.0, Baso % (Auto) 0.5, Absolute Neuts (auto) 6.7, Absolute Lymphs (auto) 2.08, Nucleated RBC % 0.3 03/19/25 06:44: POC Glucose 184 H 03/19/25 12:20: POC Glucose 186 H 03/19/25 15:57: POC Glucose 180 H Micro: Microbiology 03/16/25 13:16 Stool Stool Occult Blood (YASMINE) - Final Radiography Diagnostic Testing: Radiology Impression Abdomen/Pelvis CT 03/19/25 12:24 IMPRESSION: Stable examination. 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 Diffuse fatty infiltration of the liver. Small amount of free fluid in the pelvis. Reading Location: [place] [address] Physical Exam Narrative alert, oriented x3 and no apparent distress General Appearance: cooperative, well kempt and well developed Orientation / Consciousness: awake, oriented to person, oriented to place and oriented to time HEENT normocephalic, head/scalp atraumatic and moist oral mucous membranes Eyes PERRL, EOMs intact bilaterally and conjunctivae normal Neck supple, no JVD, thyroid normal and no carotid bruits General: trachea midline Resp normal respiratory effort, no retractions, no use of accessory muscles and clearto auscultation bilaterally Auscultation: Negative for rales, rhonchi or wheezes Cardio regular rate, regular rhythm, no murmurs, no rub and no gallops GI normal to inspection, nondistended, normoactive bowel sounds, soft to palpation,non-tender and non-distended Extremity no clubbing, cyanosis or edema Skin no rashes or lesions noted General Skin Exam: no breakdown Neuro oriented x3, CN's II-XII intact bilaterally, no focal motor deficits and no sensory deficits noted Sensorium / Orientation: awake and alert Speech: speech normal Psych affect normal Assessment & Plan Assessment/Plan (1) Gastric cancer: (2) Symptomatic anemia: (3) Anemia: PLAN: Plan 1. 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-requiring blood transfusion, patient's hemoglobin is stable at this time #2 adenocarcinoma of the stomach-gastroenterology requested I order the CT of the abdomen and pelvis to ascertain whether the patient had a large amount of food in the stomach, this was ordered today, depending on the results, patient may you will have an EGD today and stent placement #3 hyperlipidemia-patient is on Lipitor #4 type 2 diabetes-patient is currently on sliding scale insulin #5 chronic depression-patient is on Cymbalta Total clinical time spent by myself addressing patient's medical issues, reviewing all of his data, and collaborating with patient's care team: 35-minute Charges/Coding Visit Charges Inpatient E&M: 25109 Subs Hosp L2 03/19/25 2464 <Electronically signed by Jacky Jaimes DO> Cosigner Signature (if applicable): CC: ~ Signed [facility] Work Phone: [phone] Progress note Author Jonathan Martinez [facility] Note Date/Time March 19, 2025 5:38 pm [facility] Medical Records Department [address] [place] [address] Progress Note 03/19/251735 MR#: [id number] Acct: [id number] Name: BIANCA DELAROSA Rep #:[id number] : 1975 49 From: Jonathan Martinez DO PCP: Dr. Humberto Jackson MD Status:ADM IN Location: [place] [address] scan still shows gastric outlet obstruction with a lot of food in the stomach. Physical Exam Const alert, oriented x3, no apparent distress and healthy appearing General Appearance: cooperative GI normal to inspection, nondistended, normoactive bowel sounds, soft to palpation,non-tender and non-distended Percussion: normal to percussion Rectal Exam: deferred Assessment & Plan Assessment/Plan (1) Carcinomatosis: (2) Cancer, metastatic to bone: (3) Gastric mass: (4) Anemia: (5) Symptomatic anemia: PLAN: Plan We will perform a repeat upper endoscopy to evaluate his upper GI tract and tried to place duodenal stent across the pylorus. He was explained alternatives, risk and benefits including missed any bleeding, infection, subsequent perforation, need for urgent . He will have an-ASA 3.. Visit Charges Inpatient E&M: 13996 Subs Hosp L2 03/19/251737 <Electronically signed by Jonathan Martinez DO> Jonathan Martinez DO Cosigner Signature (if applicable): CC: ~ Signed [facility] Work Phone: [phone] Consult note Author Issac Gil [facility] Note Date/Time March 19, 2025 4:[address] [facility] Medical Records Department [address] [place] [address] Pre-Anesthesia Evaluation 03/19/25 1648 MR#: [id number] Acct: [id number] Name: BIANCA DELAROSA Rep #:[id number] : 1975 49 From: Issac Gil MD PCP: Dr. Humberto Jackson MD Status:ADM IN Y Race: C Location: MS3 MS315 -1 ASA Classification* ASA Classification ASA Classification: 3 Assessment & Plan Anesthesia* Anesthesia Assessment Anesthesia Assessment: Discussed sedation and/or anesthesia options, risks, benefits, and alternatives with patient/parents/legal guardian/POA. Questions invited. The patient/parents/legal guardian/POA seems to understand and agrees to proceedwith anesthesia plan. Reviewed the physical assessment, medical history, allergy history and patient home medications list prior to surgery/procedure/anesthetic and documented any changes. Performed airway and anesthesia risk assessments. Anesthesia Type Anesthesia Type: MAC Anesthesia Focused Assessment* Temperature: 99.6 F Pulse Rate: 103 Blood Pressure: 106/73 Respiratory Rate: 18 Pulse Ox: 98 Oxygen Flow Rate (L/min): 2 Airway Assessment Mouth opens: >3 cm Mallampati Score: II Labs Anesthesia Preop lab: CBC WBC 9.8 K/mm3 (4.4-11.0) 03/19/25 05:21 03/19/25 RBC 3.52 M/mm3 (4.6-6.2) L 03/19/25 05:21 03/19/25 Hgb 8.9 g/dL (13.0-16.5) L 03/19/25 05:21 03/19/25 Hct 27.9 % (40-54) L 03/19/25 05:21 03/19/25 Plt Count 367 K/mm3 (150-450) 03/19/25 05:21 03/19/25 CHEMISTRY Potassium 3.8 mmol/L (3.3-5.1) 03/17/25 04:09 03/17/25 Sodium 138 mmol/L (133-145) 03/17/25 04:09 03/17/25 Magnesium 2.2 mg/dL (1.5-2.2) 03/17/25 04:09 03/17/25 Phosphorus 3.9 mg/dL (2.7-4.5) 03/17/25 04:09 03/17/25 BUN 9 mg/dL (4-19) 03/17/25 04:09 03/17/25 Creatinine 0.72 mg/dL (0.70-1.20) 03/17/25 04:09 03/17/25 Glucose 181 mg/dL (70-99) H 03/17/25 04:09 03/17/25 POC Glucose 180 mg/dL (74-106) H 03/19/25 15:57 03/19/25 COAG PT 12.8 SECONDS (11.7-14.9) 10/22/18 05:05 Pre-Assessment Diagnosis/Proposed Procedure Planned Operative Procedure(s): EGD Anesthesia History Anesthesia History - chief scientific officer: Anesthesia History - chief scientific officer Hx Hospitalization Any Problems With Anesthesia No 04/14/23 16:13 Cholinesterase deficiency No 04/14/23 16:13 You/Your Family Experience No 04/14/23 16:13 fever (hyperthermia) with Relationship Recent Exposure to Contagious No 04/14/23 16:13 Disease Does patient have nerve No 04/14/23 16:13 stimulator Patient instructed to have device shut off --Does patient have Pacemaker or ICD? When Was Last Pacemaker Check QUESTION #4 FULL TEXT: You/Your Family Experience fever (hyperthermia) with Anesthesia Last Oral Intake Last Oral intake: Last Oral Intake NPO since Meds taken in AM with sips of water? Meds patient instructed to take am of surgery PONV PONV - chief scientific officer: PONV - chief scientific officer Female HX of Motion Sickness HX of N/V After Surgery Non-Smoker Duration of Surgery greater than 60 minutes Number of Risk Factors PONV Score Height & Weight Height & Weight: Anesthesia: Height & Weight Height 6 ft 2 in 03/17/25 14:34 Weight: 122.47 kg 03/17/25 14:34 Body Mass Index (BMI) 34.7 03/16/25 15:56 Respiratory Assessment Respiratory Assessment - chief scientific officer: Respiratory Tract Infection Hx - chief scientific officer Hx Respiratory Tract Infection No 04/14/23 16:13 STOP Sleep Apnea STOP Sleep Apnea - chief scientific officer: STOP Sleep Apnea - chief scientific officer Hx Hypertension Yes: recently pre htn 03/16/25 15:56 Hx Sleep Apnea Yes 03/16/25 15:56 CPAP No 03/17/25 13:30 BIPAP No 03/16/25 15:56 Do you snore loudly (louder than talking or can be heard Do you often feel tired/ fatigued/ sleepy during daytime? Has anyone observed you stop breathing during sleep? STOP Results Positive 03/17/25 13:30 QUESTION #5 FULL TEXT : Do you snore loudly (louder than talking or can be heard through closed doors)? 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 Specify any problems Hx of Preganancy in last 3 N/A 03/16/25 15:56 Months Nurse Filling Out Transfusion NMARTY 03/16/25 15:56 & Questions: Date: 03/16/25 03/16/25 15:56 Time: 16:13 03/16/25 15:56 Patient unable to answer at this time (ie. confused, unrespo /Reproduction History /Reproductive History - chief scientific officer: /Reproductive Hx- chief scientific officer Hx Now Gestational Age (in weeks): EDC: Hx Hx Para Hx Section SAB No 04/14/23 16:13 Active Medications Active Medications: Current Medications Generic Name Dose Route Start Last Admin Trade Name Freq PRN Reason Stop Dose Admin Acetaminophen 650 mg 03/16/25 15:57 03/19/25 03:04 Acetaminophen 325 Mg Tablet PO 650 mg Q6H PRN PRN Administration Pain 1-10 Or Fever>100.7 Albuterol Sulfate 2.5 mg 03/16/25 15:57 Albuterol 2.5 Mg/3 Ml Vial.Neb. INHALATION Q2H PRN PRN SOB &/OR WHEEZING Atorvastatin Calcium 80 mg 03/17/25 10:00 03/19/25 11:39 Atorvastatin Calcium 80 Mg Tablet PO Not Given DAILY SIENA Buspirone HCl 15 mg 03/16/25 22:00 03/19/25 11:22 Buspirone 15 Mg Tablet PO 15 mg BID SIENA Administration Doxepin HCl 10 mg 03/16/25 22:00 03/18/25 21:21 Doxepin Hydrochloride 10 Mg Capsule PO 10 mg QHS SIENA Administration Duloxetine HCl 60 mg 03/17/25 10:00 03/19/25 11:22 Duloxetine Hcl 60 Mg Capsule PO 60 mg DAILY SIENA Administration Fenofibrate 48 mg 03/17/25 10:00 03/19/25 11:39 Fenofibrate 48 Mg Tablet PO Not Given DAILY SIENA Fluticasone Propionate 1 spray 03/16/25 15:57 Fluticasone 0.05% 1 [place] Nasal.Sry NASAL DAILY PRN allergic symptoms Sodium Chloride 250 mls @ 15 mls/hr 03/16/25 16:19 IV .[id number] PRN Saline Flush Sodium Chloride 250 mls @ 15 mls/hr 03/16/25 16:19 IV .[id number] PRN Additional IVPB Infusion Lactated Ringer's 1,000 mls @ 15 mls/hr 03/17/25 12:30 03/19/25 13:36 IV Infused .Q48H SIENA Infusion Azithromycin 500 mg/ Sodium 255 mls @ 255 mls/hr 03/17/25 20:00 03/18/25 23:27 Chloride IV Infused QHS SIENA Infusion Lactated Ringer's 1,000 mls @ 15 mls/hr 03/19/25 16:45 03/19/25 16:43 IV 15 mls/hr .Q48H SIENA Administration Insulin Human Lispro 0 unit 03/16/25 16:00 03/19/25 16:03 Insulin Lispro 100 Unit/Ml Insuln.Pen SC Not Given ACHS [facility] Protocol Melatonin 3 mg 03/16/25 15:57 03/18/25 22:19 Melatonin 3 Mg Tablet PO 3 mg QHS PRN PRN Administration INSOMNIA Metoclopramide HCl 10 mg 03/18/25 00:00 03/19/25 12:28 Metoclopramide 10 Mg/2 Ml Vial IV 10 mg Q6 SIENA Administration Multivitamins 1 tablet 03/17/25 08:00 03/19/25 08:39 Multivitamins,Therapeutic Tablet PO Not Given DAILYCM [facility] Nutritional Formula (Lactose Free) 120 ml 03/17/25 10:00 03/19/25 16:03 Ensure Plus High Protein 120 Ml Liquid PO Not Given 4X/DAY SIENA Olanzapine 5 mg 03/16/25 22:00 03/16/25 22:43 Olanzapine 5 Mg/Tab Tab.Rapdis PO 5 mg QHS SIENA Administration Protocol Ondansetron HCl 4 mg 03/16/25 15:57 03/19/25 09:52 Ondansetron 4 Mg/2 Ml Vial IV 4 mg Q8H PRN PRN Administration NAUSEA/VOMITING Pantoprazole Sodium 40 mg 03/20/25 10:00 Pantoprazole Sodium 40 Mg Tablet PO BID SIENA Senna/Docusate Sodium 2 tablet 03/16/25 15:57 Senna/Docusate Sodium 1 Tablet PO BID PRN PRN Constipation Sodium Chloride 10 - 40 ml 03/16/25 16:19 03/19/25 12:28 0.9% Saline Lock 10 Ml Syringe IV 10 ml UD PRN Administration SALINE FLUSH PFSH Medical History History of rectal abscess Multiple thyroid nodules Restrictive airway disease Abnormal chest CT Pneumonia Acute respiratory failure Shortness of breath Community acquired pneumonia Chronic headache Acute respiratory failure with hypoxia GERD (gastroesophageal reflux disease) Anxiety and depression Diabetes mellitus, type II Obesity (BMI 30-39.9) HLD (hyperlipidemia) MIKE (obstructive sleep apnea) Home Medications ?Medication ?Instructions ?Recorded ?Last Taken ?Type esomeprazole magnesium 40 mg 40 mg PO QHS gerd 8 03/15/25 22:00 History capsule,delayed release 40 mg fenofibrate 50 mg capsule 54 mg PO DAILY cholesterol 0 10/10/17 03/16/25 08:00 History 54 mg multivitamin 1 ea PO DAILY supplement 11/2603/16/25 08:00 History 1 ea atorvastatin 20 mg tablet 20 mg PO DAILY high choleste rol 03/22/18 03/16/25 08:00 History 20 mg metformin 500 mg tablet 1,000 mg PO BID diabetes 03/16/25 08:00 History 1,000 mg doxepin 10 mg capsule 10 mg PO QHS insomnia 03/15/25 22:00 History 10 mg olanzapine 2.5 mg tablet 2.5 mg PO QHS insomnia 10/2003/15/25 22:00 History 2.5 mg zonisamide 25 mg capsule 25 mg PO DAILY unknown 10/2003/16/25 08:00 History 25 mg buspirone 15 mg tablet mg PO BID anxiety 04/14/23 0 03/16/25 08:00 History 15 mg duloxetine 60 mg capsule,delayed mg PO DAILY depressio n 04/14/23 03/16/25 08:00 History release 60 mg insulin lispro protamine-lispro subcut Type 2 DM 04/14 Unknown History 100 unit/mL (75-25) subcutaneous pen atorvastatin 80 mg tablet 80 mg PO DAILY hypercholestr emia 03/16/25 Unknown History dexmethylphenidate 20 mg 20 mg PO DAILY on hold 03/16 Unknown History capsule,extended release [id number] Held on 03/16/25. Instructions: Order Changed duloxetine 30 mg capsule,delayed 30 mg PO DAILY depres brittni 03/16/25 Unknown History release ferrous sulfate 325 mg (65 mg 325 mg PO BID anemia 06/02 Unknown History iron) tablet Allergy/AdvReac Type Severity Reaction Status Date / Time citalopram Allergy Unknown Unknown Verified 03/17/25 12:23 venlafaxine Allergy Unknown Unknown Verified 03/17/25 12:23 metoclopramide (From Reglan) Allergy weirds me Verified 03/17/25 12:23 out sertraline (From Zoloft) Allergy sexual Verified 03/17/25 12:23 side effects topiramate (From Topamax) Allergy Unknown Verified 03/17/25 12:23 Family History Father Colon cancer at age 53 Heart disease Myocardial infarction Surgical History Hx of drainage of abscess (~04/2023) Hx of appendectomy Hx of tonsillectomy Social History household members: spouse housing: house current occupational status: employed 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 03/19/25 1649 <Electronically signed by Issac Gil MD > Date _ Issac Gil MD Cosigner Signature: Date CC: ~ Signed [facility] Work Phone: [phone] 747-468406-11-2025 Progress note [facility] Medical Records Department [address] [place] [address] Progress Note - Hospitalist 03/19/251838 MR#: [id number] Acct: [id number] Name: BIANCA DELAROSA Rep #:[id number] : 1975 49 From: Jacky Jaimes DO PCP: Dr. Humberto Jackson MD Status:ADM IN Location: [place] [id number] Hospitalist Note Patient had a CT of the abdomen and pelvis today which showed the presence of some food in the stomach, due to concerns of gastric outlet obstruction, gastroenterology decided to attempt an endoscopyto see if a stent could be inserted to keep the pylorus open, patient had an episode of aspiration before the scope was completed and the scope attempt was stopped, patient is currently in PACU on 2 L of oxygen and does not appear to be in respiratory distress. He will return to [place] [address] on continuous pulse ox, they will attempt another EGD tomorrow with the patient being intubated. 03/19/25 184 Cosigner Signature (if applicable): CC: ~ Signed [facility]06-11-[address] [facility] Medical Records Department [address] [place] [address] Anesthesia Postop Eval I 03/19/251835 MR#: [id number] Acct: [id number] Name: BIANCA DELAROSA Rep #:[id number] : 1975 49 From: Issac Gil MD PCP: Dr. Humberto Jackson MD Status:ADM IN Y Race: C Location: [place] [address] Anesthesia: Postop Eval I Current Vital Signs Temperature: 99 F Pulse Rate: 102 Blood Pressure: 135/84 Respiratory Rate: 16 Pulse Ox: 96 Oxygen Delivery Method: Nasal Cannula Oxygen Flow Rate (L/min): 3 Assessment Airway patent: Yes Spontaneous unlabored respirations: Yes Mental status: Awake nausea: No Vomiting: No Anesthesia Complication: Yes Anesthesia Complication Comment:: With insertion ofendoscope. Patient began vomiting large amounts of what appeared to be food. Immediately suctioned. Patient was awake enough that he seemed to protect his own airway. After 5 minutes of suctioning and vomiting. Patient was awake withbaseline sats. Decision was to cancel procedure due to risk of aspiration. He will be monitored overnight. If he does well with his oxygen saturation, can bring back tomorrow but will need full intubation and general anesthesia becauseof risk of aspiration. Dr. Martinez has discussed this with family and the hospitalist Dr. Darrick Badillo Fluid Hydration Crystalloid volume administer (ml): 50 Total IV fluid infused: 50 Progress Note Anesthesia document: Postop Eval 1 completed: Yes 03/19/251838 > Date _ Issac Gil MD [facility] Signature: Date CC: ~ Signed [facility]06-11-[address] [facility] Medical Records Department [address] [place] [address] Anesthesia Postop Eval II 03/19/251838 MR#: [id number] Acct: [id number] Name: BIANCA DELAROSA Rep #:[id number] : 1975 49 From: Issac Gil MD PCP: Dr. Humberto Jackson MD Status:ADM IN Y Race: C Location: [address] Anesthesia Postop Eval I Sum Postop Eval Completion status Anesthesia document: Postop Eval 1 completed: Yes Anesthesia Postop Eval I Summary Anesthesia Postop Eval I Summary: Anesthesia Postop Eval I: Assessment Summary Airway patent Yes 03/19/25 18:39 Spontaneous unlabored Yes 03/19/25 18:39 respirations Mental status Awake 03/19/25 18:39 nausea No 03/19/25 18:39 Vomiting No 03/19/25 18:39 Anesthesia Postop Eval I: Fluid Summary Crystalloid volume administer 50 03/19/25 18:39 (ml) Colloids volume administered ( ml) Blood Product volume administered (ml) Total IV fluid infused 50 03/19/25 18:39 Anesthesia Postop Eval I: Summary Notes Anesthesia Complication Yes 03/19/25 18:39 Anesthesia Complication With insertion of 03/19/25 18:39 Comment: endoscope. Patient began vomiting large amounts of what appeared to be food. Immediately suctioned. Patient was awake enough that he seemed to protect his own airway. After 5 minutes of suctioning and vomiting. Patient was awake with baseline sats. Decision was to cancel procedure due to risk of aspiration. He will be monitored overnight. If he does well with his oxygen saturation , can bring back tomorrow but will need full intubation and general anesthesia because of risk of aspiration. Dr Micky Martinez has discussed this with family and the hospitalist Dr Micky Badillo Post-operative progress note Anesthesia: Postop Eval II Evaluation Mental status: Awake and Calm Pain Level: 0 nausea: No Vomiting: No 03/19/25 1839 > Date _ Issac Diggs Signature: Date CC: ~ Signed [place] [address]-11-2025 Progress note [facility] Medical Records Department [address] [place] [address] Progress Note - Hospitalist 03/19/25 1834 MR#: [id number] Acct: [id number] Name: BIANCA DELAROSA Rep #:[id number] : 1975 49 From: Jacky Jaimes DO PCP: Dr. Humberto Jackson MD Status:ADM IN Location: [facility] [place] PE[place]-9 Reason for Visit Reason for Visit: Diagnoses Secondary malignant neoplasm of bone (03/16/25) Disseminated malignant neoplasm, unspecified (03/16/25) Iron deficiency anemia, unspecified (03/16/25) Anemia, unspecified (03/16/25) Other diseases of stomach and duodenum (03/16/25) Abnormal weight loss (03/16/25) Subjective Subjective Patient was seen and examined today earlier, he was supposed to go down for an EGD today. He was nervous so I gave him some IV Ativan Objective Data Objective Data Vital Signs: Vital Signs Temp Pulse Resp BP Pulse Ox O2 Del Method O2 Flow Rate 99.6 F H 103 H 18 106/73 98 Nasal Cannula 2 03/19/25 16:49 03/19/25 16:49 03/19/25 16:49 03/19/25 16:49 03/19/25 16:49 03/19/25 14:40 03/19/25 16:49 Oxygen Flow Rate (L/min) 2 Oxygen Delivery Method Nasal Cannula Weight: 122.47 kg Body Mass Index (BMI) 34.7 Intake & Output: Intake and Output for Last 24 Hours 03/17/25 03/18/25 03/19/25 23:59 23:59 23:59 Intake Total 1510.17 / 1510.17 2875 / 2875 965.58 / 965.58 Output Total 800 / 800 Balance 1508.17 / 1508.17 2875 / 2875 165.58 / 165.58 Lab / Micro Data 03/19/25 05:21 03/17/25 04:09 Labs: Laboratory Results - last 24 hr 03/16/25 13:12: Crossmatch See Detail 03/18/25 21:20: POC Glucose 169 H 03/19/25 05:21: WBC 9.8, RBC 3.52 L, Hgb 8.9 L, Hct 27.9 L, MCV 79.3 L, MCH 25.3L, MCHC 31.9 L, RDWStd Deviation 44.8 H, RDW Coeff of Katie 16.6 H, Plt Count 367, MPV 11.0, Immature Gran % (Auto) 0.600, Neut % (Auto) 68.9, Lymph % (Auto) 21.2, [place] % (Auto) 6.8, Eos % (Auto) 2.0, Baso % (Auto) 0.5, Absolute Neuts (auto) 6.7, Absolute Lymphs (auto) 2.08, Nucleated RBC % 0.3 03/19/25 06:44: POC Glucose 184 H 03/19/25 12:20: POC Glucose 186 H 03/19/25 15:57: POC Glucose 180 H Micro: Microbiology 03/16/25 13:16 Stool Stool Occult Blood (YASMINE) - Final Radiography Diagnostic Testing: Radiology Impression Abdomen/Pelvis CT 03/19/25 12:24 IMPRESSION: Stable examination. 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 Diffuse fatty infiltration of the liver. Small amount of free fluid in the pelvis. Reading Location: [place] [address] Physical Exam Narrative alert, oriented x3 and no apparent distress General Appearance: cooperative, well kempt and well developed Orientation / Consciousness: awake, oriented to person, oriented to place and oriented to time HEENT normocephalic, head/scalp atraumatic and moist oral mucous membranes Eyes PERRL, EOMs intact bilaterally and conjunctivae normal Neck supple, no JVD, thyroid normal and no carotid bruits General: trachea midline Resp normal respiratory effort, no retractions, no use of accessory muscles and clearto auscultation bilaterally Auscultation: Negative for rales, rhonchi or wheezes Cardio regular rate, regular rhythm, no murmurs, no rub and no gallops GI normal to inspection, nondistended, normoactive bowel sounds, soft to palpation,non-tender and non-distended Extremity no clubbing, cyanosis or edema Skin no rashes or lesions noted General Skin Exam: no breakdown Neuro oriented x3, CN's II-XII intact bilaterally, no focal motor deficits and no sensory deficits noted Sensorium / Orientation: awake and alert Speech: speech normal Psych affect normal Assessment & Plan Assessment/Plan (1) Gastric cancer: (2) Symptomatic anemia: (3) Anemia: PLAN: Plan 1. 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-requiring blood transfusion, patient's hemoglobin is stable at this time #2 adenocarcinoma of the stomach-gastroenterology requested I order the CT of the abdomen and pelvis to ascertain whether the patient had a large amount of food in the stomach, this was ordered today, depending on the results, patient may you will have an EGD today and stent placement #3 hyperlipidemia-patient is on Lipitor #4 type 2 diabetes-patient is currently on sliding scale insulin #5 chronic depression-patient is on Cymbalta Total clinical time spent by myself addressing patient's medical issues, reviewing all of his data,and collaborating with patient's care team: 35-minute Charges/Coding Visit Charges Inpatient E&M: 33381 Subs Hosp L2 03/19/25 8701 Cosigner Signature (if applicable): CC: ~ Signed [facility]06-11-[address] [facility] Medical Records Department [address] [place] [address] EGD Report MR#: [id number] Acct: [id number] Name: BIANCA DELAROSA Rep #:[id number] : 1975 49 From: Jonathan Martinez DO PCP: Dr. Humberto Jackson MD Status:ADM IN Patient Name: Bianca Delarosa Procedure Date: 03/19/2025 5:36 PM Date of : 1975 Age: 49 Procedure: Upper GI endoscopy Indications: Iron deficiency anemia, Peptic ulcer Providers: Jonathan Martinez DO Medicines: Monitored Anesthesia Care Patient Profile: This is a 49 year old male. Refer to note in patient chart for documentation of history and physical. Patient has symptoms of acute nausea, chronic regurgitation and acute vomiting. Complications: No immediate complications. Procedure: Pre-Anesthesia Assessment: - Prior to the procedure, a History and Physical was performed, and patient medications and allergies were reviewed. The patient is competent. The risks and benefits of the procedure and the sedation options and risks were discussed with the patient. All questions were answered and informed consent was obtained. Patient identification and proposed procedure were verified by the physician in the pre-procedure area. Mental Status Examination: alert and oriented. Airway Examination: normal oropharyngeal airway and neck mobility. Respiratory Examination: clear to auscultation. CV Examination: normal. ASA Grade Assessment: II - A patient with mild systemic disease. After reviewing the risks and benefits, the patient was deemed in satisfactory condition to undergo the procedure. The anesthesia plan was to use monitored anesthesia care (MAC). Immediately prior to administration of medications, the patient was re-assessed for adequacy to receive sedatives. The heart rate, respiratory rate, oxygen saturations, blood pressure, adequacy of pulmonary ventilation, and response to care were monitored throughout the procedure. The physical status of the patient was re-assessed after the procedure. After obtaining informed consent, the endoscope was passed under direct vision. Throughout the procedure, the patient's blood pressure, pulse, and oxygen saturations were monitored continuously. The Colonoscope was introduced through the mouth, and advanced to the pylorus. The upper GI endoscopy was accomplished without difficulty. The patient tolerated the procedure well. The patient tolerated the procedure poorly due to the patient's respiratory instability (pulmonary aspiration). Scope In: 6:10:10 PM Scope Out: 6:15:03 PM Total Procedure Duration Time 0 hours 4 minutes 53 seconds Findings: LA Grade D (one or more mucosal breaks involving at least 75% of esophageal circumference) esophagitis with no bleeding was found 20 to 40 cm from the incisors. A large amount of food (residue) was found in the entire examined stomach. Many oozing cratered gastric ulcers with pigmented material were found at the incisura, in the gastric antrum, in the prepyloric region of the stomach and at the pylorus. Impression: - LA Grade D reflux esophagitis with no bleeding. - A large amount of food (residue) in the stomach. - Oozing gastric ulcers with pigmented material. - No specimens collected. Recommendation: - Discharge patient to home. - NPO. - Continue present medications. Procedure Code(s): --- Professional --- 63035, 52, Esophagogastroduodenoscopy, flexible, transoral; diagnostic, including collection of specimen(s) by brushing or washing, when performed (separate procedure) CPT copyright 2021 [employer]. All rights reserved. The codes documented in this report are preliminary and upon sales estimator review may be revised to meet current compliance requirements. Jonathan Martinez DO 03/19/2025 6:32:02 PM This report has been signed electronically. Number of Addenda: 0 Note Initiated On: 03/19/2025 5:36 PM 03/19/25 1832 Date _ Jonathan Martinez DO Cosigner Signature: Date (if indicated) CC: Dr. Humberto Jackson MD; Jonathan Martinez DO ~ Date Dictated: 03/19/25 1736 Date Transcribed: Drill Setup Operator: RF Signed [facility]06-11-[address] [facility] Medical Records Department [address] [place] [address] Operative Report - CC Letter MR#: [id number] Acct: [id number] Name: BIANCA DELAROSA Rep #:[id number] : 1975 49 From: Jonathan Martinez DO PCP: Dr. Humberto Jackson MD Status:ADM IN 03/19/2025 Humberto Jackson MD Re : Upper GI endoscopy procedure for Bianca Washington Dear Dr. Jackson This procedure was performed on Monday, March 19, 2025. My impressions and recommendations are as follows: Impressions : - LA Grade D reflux esophagitis with no bleeding. - A large amount of food (residue) in the stomach. - Oozing gastric ulcers with pigmented material. - No specimens collected. Recommendations : - Discharge patient to home. - NPO. - Continue present medications. My findings are described in the full procedure note, which is enclosed. If I can be of further assistance, please feel free to contact me at . Sincerely, Jonathan Martinez DO 03/19/2025 6:32:02 PM This report has been signed electronically. 03/19/25 1832 Date _ Jonathan Martinez DO Cosigner Signature: Date (if indicated) CC: Dr. Humberto Jackson MD; Dr. Tia Bergman DO; Dr. Jacky Jaimes DO ~ Date Dictated: 03/19/251735 Date Transcribed: Drill Setup Operator: RF Signed [facility]06-11-2025 Progress note [facility] Medical Records Department [address] [facility] [place] [address] Progress Note 03/19/251735 MR#: [id number] Acct: [id number] Name: BIANCA DELAROSA Rep #:[id number] : 1975 49 From: Jonathan Martinez DO PCP: Dr. Humberto Jackson MD Status:ADM IN Location: [place] [address] scan still shows gastric outlet obstruction with a lot of food in the stomach. Physical Exam Const alert, oriented x3, no apparent distress and healthy appearing General Appearance: cooperative GI normal to inspection, nondistended, normoactive bowel sounds, soft to palpation,non-tender and non-distended Percussion: normal to percussion Rectal Exam: deferred Assessment & Plan Assessment/Plan (1) Carcinomatosis: (2) Cancer, metastatic to bone: (3) Gastric mass: (4) Anemia: (5) Symptomatic anemia: PLAN: Plan We will perform a repeat upper endoscopy to evaluate his upper GI tract and tried to place duodenalstent across the pylorus. He was explained alternatives, risk and benefits including missed any bleeding, infection, subsequent perforation, need for urgent . He will have an-ASA 3.. Visit Charges Inpatient E&M: 86063 Subs Hosp L2 03/19/25 1738 Jonathan Friend DO Cosigner Signature (if applicable): CC: ~ Signed [facility]06-11-[address] [facility] Medical Records Department [address] [place] [address] Pre-Anesthesia Evaluation 03/19/25 1648 MR#: [id number] Acct: [id number] Name: BIANCA DELAROSA Rep #:[id number] : 1975 49 From: Issac Gil MD PCP: Dr. Humberto Jackson MD Status:ADM IN Y Race: C Location: [place] [address] ASA Classification* ASA Classification ASA Classification: 3 Assessment & Plan Anesthesia* Anesthesia Assessment Anesthesia Assessment: Discussed sedation and/or anesthesia options, risks, benefits, and alternatives with patient/parents/legal guardian/POA. Questions invited. The patient/parents/legal guardian/POA seems to understand and agrees to proceedwith anesthesia plan. Reviewed the physical assessment, medical history, allergy history and patient home medications list prior to surgery/procedure/anesthetic and documented any changes. Performed airway and anesthesia risk assessments. Anesthesia Type Anesthesia Type: MAC Anesthesia Focused Assessment* Temperature: 99.6 F Pulse Rate: 103 Blood Pressure: 106/73 Respiratory Rate: 18 Pulse Ox: 98 Oxygen Flow Rate (L/min): 2 Airway Assessment Mouth opens: >3 cm Mallampati Score: II Labs Anesthesia Preop lab: CBC WBC 9.8 K/mm3 (4.4-11.0) 03/19/25 05:21 03/19/25 RBC 3.52 M/mm3 (4.6-6.2) L 03/19/25 05:21 03/19/25 Hgb 8.9 g/dL (13.0-16.5) L 03/19/25 05:21 03/19/25 Hct 27.9 % (40-54) L 03/19/25 05:21 03/19/25 Plt Count 367 K/mm3 (150-450) 03/19/25 05:21 03/19/25 CHEMISTRY Potassium 3.8 mmol/L (3.3-5.1) 03/17/25 04:09 03/17/25 Sodium 138 mmol/L (133-145) 03/17/25 04:09 03/17/25 Magnesium 2.2 mg/dL (1.5-2.2) 03/17/25 04:09 03/17/25 Phosphorus 3.9 mg/dL (2.7-4.5) 03/17/25 04:09 03/17/25 BUN 9 mg/dL (4-19) 03/17/25 04:09 03/17/25 Creatinine 0.72 mg/dL (0.70-1.20) 03/17/25 04:09 03/17/25 Glucose 181 mg/dL (70-99) H 03/17/25 04:09 03/17/25 POC Glucose 180 mg/dL (74-106) H 03/19/25 15:57 03/19/25 COAG PT 12.8 SECONDS (11.7-14.9) 10/22/18 05:05 Pre-Assessment Diagnosis/Proposed Procedure Planned Operative Procedure(s): EGD Anesthesia History Anesthesia History - chief scientific officer: Anesthesia History - chief scientific officer Hx Hospitalization Any Problems With Anesthesia No 04/14/23 16:13 Cholinesterase deficiency No 04/14/23 16:13 You/Your Family Experience No 04/14/23 16:13 fever (hyperthermia) with Relationship Recent Exposure to Contagious No 04/14/23 16:13 Disease Does patient have nerve No 04/14/23 16:13 stimulator Patient instructed to have device shut off --Does patient have Pacemaker or ICD? When Was Last Pacemaker Check QUESTION #4 FULL TEXT: You/Your Family Experience fever (hyperthermia) with Anesthesia Last Oral Intake Last Oral intake: Last Oral Intake NPO since Meds taken in AM with sips of water? Meds patient instructed to take am of surgery PONV PONV - chief scientific officer: PONV - chief scientific officer Female HX of Motion Sickness HX of N/V After Surgery Non-Smoker Duration of Surgery greater than 60 minutes Number of Risk Factors PONV Score Height & Weight Height & Weight: Anesthesia: Height & Weight Height 6 ft 2 in 03/17/25 14:34 Weight: 122.47 kg 03/17/25 14:34 Body Mass Index (BMI) 34.7 03/16/25 15:56 Respiratory Assessment Respiratory Assessment - chief scientific officer: Respiratory Tract Infection Hx - chief scientific officer Hx Respiratory Tract Infection No 04/14/23 16:13 STOP Sleep Apnea STOP Sleep Apnea - chief scientific officer: STOP Sleep Apnea - chief scientific officer Hx Hypertension Yes: recently pre htn 03/16/25 15:56 Hx Sleep Apnea Yes 03/16/25 15:56 CPAP No 03/17/25 13:30 BIPAP No 03/16/25 15:56 Do you snore loudly (louder than talking or can be heard Do you often feel tired/ fatigued/ sleepy during daytime? Has anyone observed you stop breathing during sleep? STOP Results Positive 03/17/25 13:30 QUESTION #5 FULL TEXT : Do you snore loudly (louder than talking or can be heard through closeddoors)? 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 Specify any problems Hx of Preganancy in last 3 N/A 03/16/25 15:56 Months Nurse Filling Out Transfusion NMARTY 03/16/25 15:56 & Questions: Date: 03/16/25 03/16/25 15:56 Time: 16:13 03/16/25 15:56 Patient unable to answer at this time (ie. confused, unrespo /Reproduction History /Reproductive History - chief scientific officer: /Reproductive Hx- chief scientific officer Hx Now Gestational Age (in weeks): EDC: Hx Hx Para Hx Section SAB No 04/14/23 16:13 Active Medications Active Medications: Current Medications Generic Name Dose Route Start Last Admin Trade Name Freq PRN Reason Stop Dose Admin Acetaminophen 650 mg 03/16/25 15:57 03/19/25 03:04 Acetaminophen 325 Mg Tablet PO 650 mg Q6H PRN PRN Administration Pain 1-10 Or Fever>100.7 Albuterol Sulfate 2.5 mg 03/16/25 15:57 Albuterol 2.5 Mg/3 Ml Vial.Neb. INHALATION Q2H PRN PRN SOB &/OR WHEEZING Atorvastatin Calcium 80 mg 03/17/25 10:00 03/19/25 11:39 Atorvastatin Calcium 80 Mg Tablet PO Not Given DAILY SIENA Buspirone HCl 15 mg 03/16/25 22:00 03/19/25 11:22 Buspirone 15 Mg Tablet PO 15 mg BID SIENA Administration Doxepin HCl 10 mg 03/16/25 22:00 03/18/25 21:21 Doxepin Hydrochloride 10 Mg Capsule PO 10 mg QHS SIENA Administration Duloxetine HCl 60 mg 03/17/25 10:00 03/19/25 11:22 Duloxetine Hcl 60 Mg Capsule PO 60 mg DAILY SIENA Administration Fenofibrate 48 mg 03/17/25 10:00 03/19/25 11:39 Fenofibrate 48 Mg Tablet PO Not Given DAILY SIENA Fluticasone Propionate 1 spray 03/16/25 15:57 Fluticasone 0.05% 1 [place] Nasal.Sry NASAL DAILY PRN allergic symptoms Sodium Chloride 250 mls @ 15 mls/hr 03/16/25 16:19 IV .[id number] PRN Saline Flush Sodium Chloride 250 mls @ 15 mls/hr 03/16/25 16:19 IV .[id number] PRN Additional IVPB Infusion Lactated Ringer's 1,000 mls @ 15 mls/hr 03/17/25 12:30 03/19/25 13:36 IV Infused .Q48H SIENA Infusion Azithromycin 500 mg/ Sodium 255 mls @ 255 mls/hr 03/17/25 20:00 03/18/25 23:27 Chloride IV Infused QHS SIENA Infusion Lactated Ringer's 1,000 mls @ 15 mls/hr 03/19/25 16:45 03/19/25 16:43 IV 15 mls/hr .Q48H SIENA Administration Insulin Human Lispro 0 unit 03/16/25 16:00 03/19/25 16:03 Insulin Lispro 100 Unit/Ml Insuln.Pen SC Not Given ACHS SIENA Protocol Melatonin 3 mg 03/16/25 15:57 03/18/25 22:19 Melatonin 3 Mg Tablet PO 3 mg QHS PRN PRN Administration INSOMNIA Metoclopramide HCl 10 mg 03/18/25 00:00 03/19/25 12:28 Metoclopramide 10 Mg/2 Ml Vial IV 10 mg Q6 SIENA Administration Multivitamins 1 tablet 03/17/25 08:00 03/19/25 08:39 Multivitamins,Therapeutic Tablet PO Not Given DAILYCM [facility] Nutritional Formula (Lactose Free) 120 ml 03/17/25 10:00 03/19/25 16:03 Ensure Plus High Protein 120 Ml Liquid PO Not Given 4X/DAY SIENA Olanzapine 5 mg 03/16/25 22:00 03/16/25 22:43 Olanzapine 5 Mg/Tab Tab.Rapdis PO 5 mg QHS SIENA Administration Protocol Ondansetron HCl 4 mg 03/16/25 15:57 03/19/25 09:52 Ondansetron 4 Mg/2 Ml Vial IV 4 mg Q8H PRN PRN Administration NAUSEA/VOMITING Pantoprazole Sodium 40 mg 03/20/25 10:00 Pantoprazole Sodium 40 Mg Tablet PO BID SIENA Senna/Docusate Sodium 2 tablet 03/16/25 15:57 Senna/Docusate Sodium 1 Tablet PO BID PRN PRN Constipation Sodium Chloride 10 - 40 ml 03/16/25 16:19 03/19/25 12:28 0.9% Saline Lock 10 Ml Syringe IV 10 ml UD PRN Administration SALINE FLUSH [facility] Medical History History of rectal abscess Multiple thyroid nodules Restrictive airway disease Abnormal chest CT Pneumonia Acute respiratory failure Shortness of breath Community acquired pneumonia Chronic headache Acute respiratory failure with hypoxia GERD (gastroesophageal reflux disease) Anxiety and depression Diabetes mellitus, type II Obesity (BMI 30-39.9) HLD (hyperlipidemia) MIKE (obstructive sleep apnea) Home Medications ?Medication ?Instructions ?Recorded ?Last Taken ?Type esomeprazole magnesium 40 mg 40 mg PO QHS gerd 8 03/15/25 22:00 History capsule,delayed release 40 mg fenofibrate 50 mg capsule 54 mg PO DAILY cholesterol 0 10/10/17 03/16/25 08:00 History 54 mg multivitamin 1 ea PO DAILY supplement 11/2603/16/25 08:00 History 1 ea atorvastatin 20 mg tablet 20 mg PO DAILY high choleste rol 03/22/18 03/16/25 08:00 History 20 mg metformin 500 mg tablet 1,000 mg PO BID diabetes 03/16/25 08:00 History 1,000 mg doxepin 10 mg capsule 10 mg PO QHS insomnia 03/15/25 22:00 History 10 mg olanzapine 2.5 mg tablet 2.5 mg PO QHS insomnia 10/2003/15/25 22:00 History 2.5 mg zonisamide 25 mg capsule 25 mg PO DAILY unknown 10/2003/16/25 08:00 History 25 mg buspirone 15 mg tablet mg PO BID anxiety 04/14/23 0 03/16/25 08:00 History 15 mg duloxetine 60 mg capsule,delayed mg PO DAILY depressio n 04/14/23 03/16/25 08:00 History release 60 mg insulin lispro protamine-lispro subcut Type 2 DM 04/14 Unknown History 100 unit/mL (75-25) subcutaneous pen atorvastatin 80 mg tablet 80 mg PO DAILY hypercholestr emia 03/16/25 Unknown History dexmethylphenidate 20 mg 20 mg PO DAILY on hold 03/16 Unknown History capsule,extended release [id number] Held on 03/16/25. Instructions: Order Changed duloxetine 30 mg capsule,delayed 30 mg PO DAILY depres brittni 03/16/25 Unknown History release ferrous sulfate 325 mg (65 mg 325 mg PO BID anemia 06/02 Unknown History iron) tablet Allergy/AdvReac Type Severity Reaction Status Date / Time citalopram Allergy Unknown Unknown Verified 03/17/25 12:23 venlafaxine Allergy Unknown Unknown Verified 03/17/25 12:23 metoclopramide (From Reglan) Allergy weirds me Verified 03/17/25 12:23 out sertraline (From Zoloft) Allergy sexual Verified 03/17/25 12:23 side effects topiramate (From Topamax) Allergy Unknown Verified 03/17/25 12:23 Family History Father Colon cancer at age 53 Heart disease Myocardial infarction Surgical History Hx of drainage of abscess (~04/2023) Hx of appendectomy Hx of tonsillectomy Social History household members: spouse housing: house current occupational status: employed 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 03/19/25 1649 > Date _ Issac Gil MD Cosigner Signature: Date CC: ~ Signed [facility]06-11-2025 Radiology Diagnostic study note [facility] Imaging Services [address] [place] [id number] Abdomen/Pelvis WITH Contrast MR#: [id number] Acct: [id number] Name: BIANCA DELAROSA Rep #: [id number] : 1975 M 49 From: Cezar Murguia MD PCP: Dr. Humberto Jackson MD Status: ADM IN Study:Abdomen/Pelvis WITH Contrast Date of Ex am: 03/19/25 Exam# [id number] Ordering Dr: Jacky Mckeon DO PROCEDURE: ABDOMEN/PELVIS WITH CONTRAST 03/19/2025 REASON FOR EXAM: GASTRIC CANCER, RETAINED STOMACH CONTENTS Rectal abscesses. TECHNIQUE: Abdomen and pelvis CT with intravenous contrast. Coronal and Sagittal reconstruction series were provided. PATIENT PREPARATION: Per protocol ORAL CONTRAST TYPE: None. CONTRAST: Isovue-300 VOLUME: 100 mL One or more dose reduction techniques were used (e.g., Automated exposure control, adjustment of the mA and/or kV according to patient size, use of iterative reconstruction technique. RADIATION DOSE SUMMARY: CTDlvol: 17 mGy DLP: 1560.62 mGycm COMPARISON: Prior study dated March 16, 2025. FINDINGS: Lung bases: Mild bibasilar atelectasis and minimal bilateral pleural effusions. Stable 4 mm nodule in the right lower lobe. Liver: Diffuse fatty infiltration. Gallbladder: Unremarkable Spleen: Normal size. Pancreas: Diffuse fatty atrophy. Adrenals: Unremarkable Kidneys: Normal renal sizes. No hydronephrosis. 1.4 cm cyst in the midportion of the left kidney. Bladder: Unremarkable Reproductive Organs: Bowel: Distended stomach with retained food particles. Diffuse thickening of the distal portion of the antrum of the stomach and region of the pylorus. Small lymph nodes are seen in the surrounding peritonealfat. Sigmoid diverticulosis. Appendix: Lymph nodes: Vasculature: Mild diffuse atherosclerotic calcifications are noted. Peritoneum / Retroperitoneum: Mild thickening of the right anterior perirenal fascia with a small amount of fluid. Small amount of free fluid is seen in the pelvis in keeping with the minimal ascites. Stablestranding in the omental fat in the right upper quadrant. Stable small benign-appearing retroperitoneal lymph nodes. Early omental metastasis should be ruled out. Bones: Small sclerotic lesion seen in the right iliac bone. Focal sclerosis seen in the anterior aspect of the right superior pubic ramus. CT/Abdomen/Pelvis WITH Contrast IMPRESSION: Stable examination. 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 Diffuse fatty infiltration of the liver. Small amount of free fluid in the pelvis. Reading Location: [place] [address] CC: Dr. Humberto Jackson MD; Dr. Jacky Jaimes DO ~ Drill Setup Operator: Signed [facility]06-10-2025 Progress note Author Jacky Jaimes [facility] Note Date/Time March 18, 2025 6:57 pm [facility] Medical Records Department [address] [place] [address] Progress Note - Hospitalist 03/18/25 0373 MR#: [id number] Acct: [id number] Name: BIANCA DEALROSA Rep #:[id number] : 1975 49 From: Jacky Jaimes DO PCP: Dr. Humberto Jackson MD Status:ADM IN Location: [facility] [place] [id number] Reason for Visit Reason for Visit: Diagnoses Iron deficiency anemia, unspecified (03/16/25) Anemia, unspecified (03/16/25) Other diseases of stomach and duodenum (03/16/25) Abnormal weight loss (03/16/25) Subjective Subjective Patient was seen and examined today, I talked at length with his family including his about his gastric cancer and stated that he would most probably receive chemotherapy, possibly immunotherapy, and possibly radiation. I told him I did not think he was a surgical candidate and that there was some indication on his imaging studies that he had bony mets. It appears that Dr. Chandra's office contacted him today after coming over from the office and toldhim to call the office for an appointment and they would work him in next Monday. I told the patient and his family that he would need to get a repeat CBC performed on Monday if he is discharged tomorrow. I gave the patient 2 units of blood today and will check his CBC tomorrow, he will be undergoing another EGD tomorrow and possibly get a stent placed in the pylorus. Objective Data Objective Data Vital Signs: Vital Signs Temp Pulse Resp BP Pulse Ox O2 Del Method O2 Flow Rate 98.8 F 79 18 123/76 H 97 Nasal Cannula 2 03/18/25 18:47 03/18/25 18:47 03/18/25 18:47 03/18/25 18:47 03/18/25 18:47 03/18/25 18:47 03/18/25 18:47 Oxygen Flow Rate (L/min) 2 Oxygen Delivery Method Nasal Cannula Weight: 122.47 kg Body Mass Index (BMI) 34.7 Intake & Output: Intake and Output for Last 24 Hours 03/16/25 03/17/25 03/18/25 23:59 23:59 23:59 Intake Total 1510.17 / 1510.17 1819 Output Total Balance 1508.17 / 150.17 1819 Lab / Micro Data 03/18/25 06:33 03/17/25 04:09 Labs: Laboratory Results - last 24 hr 03/16/25 13:12: Crossmatch See Detail 03/17/25 22:02: POC Glucose 185 H 03/18/25 06:33: Hgb 7.0 L, Hct 22.7 L 03/18/25 06:37: POC Glucose 171 H 03/18/25 11:45: POC Glucose 169 H 03/18/25 16:53: POC Glucose 158 H Micro: Microbiology 03/16/25 13:16 Stool Stool Occult Blood (YASMINE) - Final Physical Exam Narrative alert, oriented x3 and no apparent distress General Appearance: cooperative, well kempt and well developed Orientation / Consciousness: awake, oriented to person, oriented to place and oriented to time HEENT normocephalic, head/scalp atraumatic and moist oral mucous membranes Eyes PERRL, EOMs intact bilaterally and conjunctivae normal Neck supple, no JVD, thyroid normal and no carotid bruits General: trachea midline Resp normal respiratory effort, no retractions, no use of accessory muscles and clearto auscultation bilaterally Auscultation: Negative for rales, rhonchi or wheezes Cardio regular rate, regular rhythm, no murmurs, no rub and no gallops GI normal to inspection, nondistended, normoactive bowel sounds, soft to palpation,non-tender and non-distended Extremity no clubbing, cyanosis or edema Skin no rashes or lesions noted General Skin Exam: no breakdown Neuro oriented x3, CN's II-XII intact bilaterally, no focal motor deficits and no sensory deficits noted Sensorium / Orientation: awake and alert Speech: speech normal Psych affect normal Assessment & Plan Assessment/Plan (1) Symptomatic anemia: (2) Anemia: PLAN: Plan 1. 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-patient will be transfused 2 units of packed red blood cells and CBC will be rechecked tomorrow #2 adenocarcinoma of the stomach-patient will follow-up with oncology next week,he will be scheduled for a PET scan, patient will undergo an EGD tomorrow with possible stent placement in the pylorus #3 hyperlipidemia-patient is on Lipitor #4 type 2 diabetes-patient is currently on sliding scale insulin #5 chronic depression-patient is on Cymbalta Total clinical time spent by myself addressing patient's medical issues, reviewing all of his data, and collaborating with patient's care team: 35-minute Charges/Coding Visit Charges Inpatient E&M: 64073 Subs Hosp L2 03/18/251856 <Electronically signed by Jacky Jaimes DO> Cosigner Signature (if applicable): CC: ~ Signed [facility] Work Phone: 1(822) 717-703406-10-2025 Progress note [facility] Medical Records Department [address] [place] [address] Progress Note - Hospitalist 03/18/251852 MR#: [id number] Acct: [id number] Name: BIANCA DELAROSA Rep #:[id number] : 1975 49 From: Jacky Jaimes DO PCP: Dr. Humberto Jackson MD Status:ADM IN Location: [facility] [place] [facility] [place] PO359-1 Reason for Visit Reason for Visit: Diagnoses Iron deficiency anemia, unspecified (03/16/25) Anemia, unspecified (03/16/25) Other diseases of stomach and duodenum (03/16/25) Abnormal weight loss (03/16/25) Subjective Subjective Patient was seen and examined today, I talked at length with his family including his about his gastric cancer and stated that he would most probably receive chemotherapy, possibly immunotherapy, and possibly radiation. I told him I did not think he was a surgical candidate and that there was some indication on his imaging studies that he had bony mets. It appears that Dr. Chandra's office contacted him today after coming over from the office and toldhim to call the office for an appointment and they would work him in next Monday. I told the patient and his family that he would need to get a repeat CBC performed on Monday if he is discharged tomorrow. I gave the patient 2 units of blood today and will check his CBC tomorrow, he will be undergoing another EGD tomorrow and possibly get a stent placed in the pylorus. Objective Data Objective Data Vital Signs: Vital Signs Temp Pulse Resp BP Pulse Ox O2 Del Method O2 Flow Rate 98.8 F 79 18 123/76 H 97 Nasal Cannula 2 03/18/25 18:47 03/18/25 18:47 03/18/25 18:47 03/18/25 18:47 03/18/25 18:47 03/18/25 18:47 03/18/25 18:47 Oxygen Flow Rate (L/min) 2 Oxygen Delivery Method Nasal Cannula Weight: 122.47 kg Body Mass Index (BMI) 34.7 Intake & Output: Intake and Output for Last 24 Hours 03/16/25 03/17/25 03/18/25 23:59 23:59 23:59 Intake Total 1967. 1510.17 / 1510.17 182 / 1820 Output Total 2 / 2 Balance 1508.17 / 1508.17 182 / 1820 Lab / Micro Data 03/18/25 06:33 03/17/25 04:09 Labs: Laboratory Results - last 24 hr 03/16/25 13:12: Crossmatch See Detail 03/17/25 22:02: POC Glucose 185 H 03/18/25 06:33: Hgb 7.0 L, Hct 22.7 L 03/18/25 06:37: POC Glucose 171 H 03/18/25 11:45: POC Glucose 169 H 03/18/25 16:53: POC Glucose 158 H Micro: Microbiology 03/16/25 13:16 Stool Stool Occult Blood (YASMINE) - Final Physical Exam Narrative alert, oriented x3 and no apparent distress General Appearance: cooperative, well kempt and well developed Orientation / Consciousness: awake, oriented to person, oriented to place and oriented to time HEENT normocephalic, head/scalp atraumatic and moist oral mucous membranes Eyes PERRL, EOMs intact bilaterally and conjunctivae normal Neck supple, no JVD, thyroid normal and no carotid bruits General: trachea midline Resp normal respiratory effort, no retractions, no use of accessory muscles and clearto auscultation bilaterally Auscultation: Negative for rales, rhonchi or wheezes Cardio regular rate, regular rhythm, no murmurs, no rub and no gallops GI normal to inspection, nondistended, normoactive bowel sounds, soft to palpation,non-tender and non-distended Extremity no clubbing, cyanosis or edema Skin no rashes or lesions noted General Skin Exam: no breakdown Neuro oriented x3, CN's II-XII intact bilaterally, no focal motor deficits and no sensory deficits noted Sensorium / Orientation: awake and alert Speech: speech normal Psych affect normal Assessment & Plan Assessment/Plan (1) Symptomatic anemia: (2) Anemia: PLAN: Plan 1. 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-patient will be transfused 2 units of packed red blood cells and CBC will be rechecked tomorrow #2 adenocarcinoma of the stomach-patient will follow-up with oncology next week,he will be scheduled for a PET scan, patient will undergo an EGD tomorrow with possible stent placement in the pylorus #3 hyperlipidemia-patient is on Lipitor #4 type 2 diabetes-patient is currently on sliding scale insulin #5 chronic depression-patient is on Cymbalta Total clinical time spent by myself addressing patient's medical issues, reviewing all of his data,and collaborating with patient's care team: 35-minute Charges/Coding Visit Charges Inpatient E&M: 51724 [facility] Hosp 03/18/25 3221 Cosigner Signature (if applicable): CC: ~ Signed [facility]06-10[facility] History of Present illness Narrative* Ezra Stein LPN - 03/18/2025 12:05 PM EDT Scan on 03/17/2025 1:32 PM by ProviderCarmenza PA-C: EGD Scan on 03/17/2025 1:33 PM by ProviderCarmenza PA-C: [facility] Progress note Author Jacky Jaimes [facility] Note Date/Time March 17, 2025 7:28p m [facility] Medical Records Department [address] [place] [address] Progress Note - Hospitalist 03/17/254 MR#: [id number] Acct: [id number] Name: BIANCA DELAROSA Rep #:[id number] : 1975 49 From: Jacky Jaimes DO PCP: Dr. Humberto Jackson MD Status:ADM IN Location: [place] 380885-1 Reason for Visit Reason for Visit: Diagnoses Iron deficiency anemia, unspecified (03/16/25) Anemia, unspecified (03/16/25) Other diseases of stomach and duodenum (03/16/25) Abnormal weight loss (03/16/25) Subjective Subjective Patient was seen and examined today, I talked with gastroenterology about his care, I contacted oncology today due to the fact the biopsy from the patient's EGD today showed adenocarcinoma. Dr. Chandra stated that he would need a PET scan as an outpatient and that he would have his office contact the patient tomorrow to set up an appointment. Objective Data Objective Data Vital Signs: Vital Signs Temp Pulse Resp BP Pulse Ox O2 Del Method O2 Flow Rate 97.4 F L 85 18 120/77 93 Nasal Cannula 2 03/17/25 14:39 03/17/25 14:39 03/17/25 14:39 03/17/25 14:39 03/17/25 14:39 03/17/25 16:00 03/17/25 16:00 Oxygen Flow Rate (L/min) 2 Oxygen Delivery Method Nasal Cannula Weight: 122.47 kg Body Mass Index (BMI) 34.7 Intake & Output: Intake and Output for Last 24 Hours 03/15/25 03/16/25 03/17/25 23:59 23:59 23:59 Intake Total 1255.17 / 1255.17 Output Total Balance 1253.17 / 1253.17 Lab / Micro Data 03/17/25 10:20 03/17/25 04:09 Labs: Laboratory Results - last 24 hr 03/16/25 12:29: Hemoglobin A1c 8.4 H 03/16/25 13:12: Crossmatch See Detail 03/16/25 21:57: Hgb 7.9 L, Hct 25.3 L 03/16/25 22:41: POC Glucose 177 H 03/17/25 04:09: WBC 8.5, RBC 2.99 L, Hgb 7.2 L, Hct 23.0 L, MCV 76.9 L, MCH 24.1L, MCHC 31.3 L D, RDW Std Deviation 41.2, RDW Coeff of Katie 15.1 H, Plt Count 363, MPV 11.4, Immature Gran % (Auto) 0.500, Neut % (Auto) 59.6, Lymph % (Auto) 29.1, [place] % (Auto) 7.5, Eos % (Auto) 2.6, Baso % (Auto) 0.7, Absolute Neuts (auto) 5.1, Absolute Lymphs (auto) 2.47, Nucleated RBC % 0.2, Sodium 138, Potassium 3.8, Chloride 105, Carbon Dioxide 22.6, Anion Gap 10, BUN 9, Creatinine 0.72, Estim Creat Clear Calc 170.67, Est GFR (MDRD) Non-Af 111, BUN/Creatinine Ratio 12.4, Glucose 181 H, Calcium 8.6, Phosphorus 3.9, Magnesium2.2 03/17/25 10:20: Hgb 7.6 L, Hct 24.1 L 03/17/25 12:26: POC Glucose 179 H 03/17/25 16:26: POC Glucose 185 H Micro: Microbiology 03/16/25 13:16 Stool Stool Occult Blood (YASMINE) - Final Physical Exam Const alert, oriented x3 and no apparent distress General Appearance: cooperative, well kempt and well developed Orientation / Consciousness: awake, oriented to person, oriented to place and oriented to time HEENT normocephalic, head/scalp atraumatic and moist oral mucous membranes Eyes PERRL, EOMs intact bilaterally and conjunctivae normal Neck supple, no JVD, thyroid normal and no carotid bruits General: trachea midline Resp normal respiratory effort, no retractions, no use of accessory muscles and clearto auscultation bilaterally Auscultation: Negative for rales, rhonchi or wheezes Cardio regular rate, regular rhythm, no murmurs, no rub and no gallops GI normal to inspection, nondistended, normoactive bowel sounds, soft to palpation,non-tender and non-distended Extremity no clubbing, cyanosis or edema Skin no rashes or lesions noted General Skin Exam: no breakdown Neuro oriented x3, CN's II-XII intact bilaterally, no focal motor deficits and no sensory deficits noted Sensorium / Orientation: awake and alert Speech: speech normal Psych affect normal Assessment & Plan Assessment/Plan (1) Anemia: PLAN: Plan 1. 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 #2 adenocarcinoma of the stomach-patient will follow-up with oncology #3 hyperlipidemia-patient is on Lipitor #4 type 2 diabetes-patient is currently on sliding scale insulin #5 chronic depression-patient is on Cymbalta Total clinical time spent by myself addressing patient's medical issues, reviewing all of his data, and collaborating with patient's care team: 35-minute Charges/Coding Visit Charges Inpatient E&M: 87725 Subs Hosp L2 03/17/251927 <Electronically signed by Jacky Jaimes DO> Cosigner Signature (if applicable): CC: ~ Signed [facility] Work Phone: 1(254) 626-476006-09-2025 Progress note Author Jonathan Martinez [facility] Note Date/Time March 17, 2025 7:10p m [facility] Medical Records Department [address] [place] [address] Progress Note 03/17/251907 MR#: [id number] Acct: [id number] Name: BIANCA DELAROSA Rep #:[id number] : 1975 49 From: Jonathan Martinez DO PCP: Dr. Humberto Jackson MD Status:ADM IN Location: [place] 380885-1 Progress Note Patient underwent an upper endoscopy today. He was discovered to have large gastric ulcerated antrum, prepyloric region and incisor region. Frozen specimenwas positive for adenocarcinoma. I explained this to the patient and the patient's family at the bedside. He was also discovered to have elements of gastric outlet obstruction with a large amount of food in the stomach. Physical Exam Const alert, oriented x3, no apparent distress and healthy appearing General Appearance: cooperative GI normal to inspection, nondistended, normoactive bowel sounds, soft to palpation,non-tender and non-distended Percussion: normal to percussion Rectal Exam: deferred Assessment & Plan Assessment/Plan (1) Gastric mass: (2) Symptomatic anemia: (3) Weight loss: (4) Microcytic anemia: PLAN: Plan This is a very pleasant 49-year-old gentleman with recent onset of abdominal pain and discovered to have severe microcytic anemia - CT of the abdomen and pelvis shows gastric outlet obstruction with probable mass and metastatic disease - Will perform an upper endoscopy to evaluate his upper GI tract for iron deficiency anemia and abnormal CT scan. He was explained alternatives, risk andbenefits include not withstanding bleeding, infection, sepsis, perforation, needemergent . He will have an ASA of 3. 03/17/2025-I will start him on IV Reglan, IV azithromycin. I will also hold his nightly Zyprexa to sleep due to interaction with Reglan. Being that he has severe gastroparesis with signs and symptoms of gastric outlet obstruction. I think most of his medications will do better if given IV at this time. Visit Charges Inpatient E&M: 16198 Subs Hosp L3 03/17/251909 <Electronically signed by Jonathan Friend > Jonathan Friend DO Cosigner Signature (if applicable): CC: ~ Signed [facility] Work Phone: 1(278) 914-679106-09-2025 Progress note [facility] Medical Records Department [address] [place] [address] Progress Note - Hospitalist 03/17/251923 MR#: [id number] Acct: [id number] Name: BIANCA DELAROSA Rep #:[id number] : 1975 49 From: Jacky Jaimes DO PCP: Dr. Humberto Jackson MD Status:ADM IN [facility] Reason for Visit Reason for Visit: Diagnoses Iron deficiency anemia, unspecified (03/16/25) Anemia, unspecified (03/16/25) Other diseases of stomach and duodenum (03/16/25) Abnormal weight loss (03/16/25) Subjective Subjective Patient was seen and examined today, I talked with gastroenterology about his care, I contacted oncology today due to the fact the biopsy from the patient's EGD today showed adenocarcinoma. Dr. Chandra stated that he would need a PET scan as an outpatient and that he would have his office contact the patient tomorrow to set up an appointment. Objective Data Objective Data Vital Signs: Vital Signs Temp Pulse Resp BP Pulse Ox O2 Del Method O2 Flow Rate 97.4 F L 85 18 120/77 93 Nasal Cannula 2 03/17/25 14:39 03/17/25 14:39 03/17/25 14:39 03/17/25 14:39 03/17/25 14:39 03/17/25 16:00 03/17/25 16:00 Oxygen Flow Rate (L/min) 2 Oxygen Delivery Method Nasal Cannula Weight: 122.47 kg Body Mass Index (BMI) 34.7 Intake & Output: Intake and Output for Last 24 Hours 03/15/25 03/16/25 03/17/25 23:59 23:59 23:59 Intake Total 1255.17 / 1255.17 Output Total / Balance 1253.17 / 1253.17 Lab / Micro Data 03/17/25 10:20 03/17/25 04:09 Labs: Laboratory Results - last 24 hr 03/16/25 12:29: Hemoglobin A1c 8.4 H 03/16/25 13:12: Crossmatch See Detail 03/16/25 21:57: Hgb 7.9 L, Hct 25.3 L 03/16/25 22:41: POC Glucose 177 H 03/17/25 04:09: WBC 8.5, RBC 2.99 L, Hgb 7.2 L, Hct 23.0 L, MCV 76.9 L, MCH 24.1L, MCHC 31.3 L D, RDW Std Deviation 41.2, RDW Coeff of Katie 15.1 H, Plt Count 363, MPV 11.4, Immature Gran % (Auto) 0.500, Neut % (Auto) 59.6, Lymph % (Auto) 29.1, [place] % (Auto) 7.5, Eos % (Auto) 2.6, Baso % (Auto) 0.7, Absolute Neuts (auto) 5.1, Absolute Lymphs (auto) 2.47, Nucleated RBC % 0.2, Sodium 138, Potassium 3.8, Chloride 105, Carbon Dioxide 22.6, Anion Gap 10, BUN 9, Creatinine 0.72, Estim Creat Clear Calc 170.67, Est GFR (MDRD) Non-Af 111, BUN/Creatinine Ratio 12.4, Glucose 181 H, Calcium 8.6, Phosphorus3.9, Magnesium2.2 03/17/25 10:20: Hgb 7.6 L, Hct 24.1 L 03/17/25 12:26: POC Glucose 179 H 03/17/25 16:26: POC Glucose 185 H Micro: Microbiology 03/16/25 13:16 Stool Stool Occult Blood (YASMINE) - Final Physical Exam Const alert, oriented x3 and no apparent distress General Appearance: cooperative, well kempt and well developed Orientation / Consciousness: awake, oriented to person, oriented to place and oriented to time HEENT normocephalic, head/scalp atraumatic and moist oral mucous membranes Eyes PERRL, EOMs intact bilaterally and conjunctivae normal Neck supple, no JVD, thyroid normal and no carotid bruits General: trachea midline Resp normal respiratory effort, no retractions, no use of accessory muscles and clearto auscultation bilaterally Auscultation: Negative for rales, rhonchi or wheezes Cardio regular rate, regular rhythm, no murmurs, no rub and no gallops GI normal to inspection, nondistended, normoactive bowel sounds, soft to palpation,non-tender and non-distended Extremity no clubbing, cyanosis or edema Skin no rashes or lesions noted General Skin Exam: no breakdown Neuro oriented x3, CN's II-XII intact bilaterally, no focal motor deficits and no sensory deficits noted Sensorium / Orientation: awake and alert Speech: speech normal Psych affect normal Assessment & Plan Assessment/Plan (1) Anemia: PLAN: Plan 1. 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 #2 adenocarcinoma of the stomach-patient will follow-up with oncology #3 hyperlipidemia-patient is on Lipitor #4 type 2 diabetes-patient is currently on sliding scale insulin #5 chronic depression-patient is on Cymbalta Total clinical time spent by myself addressing patient's medical issues, reviewing all of his data,and collaborating with patient's care team: 35-minute Charges/Coding Visit Charges Inpatient E&M: 90681 Subs Hosp L2 03/17/251927 Cosigner Signature (if applicable): CC: ~ Signed [facility]06-09-2025 Progress note [facility] Medical Records Department [address] [place] [address] Progress Note 03/17/251907 MR#: [id number] Acct: [id number] Name: BIANCA DELAROSA Rep #:[id number] : 1975 49 From: Jonathan Martinez DO PCP: Dr. Humberto Jackson MD Status:ADM IN Location: MS3 AO806-9 Progress Note Patient underwent an upper endoscopy today. He was discovered to have large gastric ulcerated antrum, prepyloric region and incisor region. Frozen specimenwas positive for adenocarcinoma. I explainedthis to the patient and the patient's family at the bedside. He was also discovered to have elements of gastric outlet obstruction with a large amount of food in the stomach. Physical Exam Const alert, oriented x3, no apparent distress and healthy appearing General Appearance: cooperative GI normal to inspection, nondistended, normoactive bowel sounds, soft to palpation,non-tender and non-distended Percussion: normal to percussion Rectal Exam: deferred Assessment & Plan Assessment/Plan (1) Gastric mass: (2) Symptomatic anemia: (3) Weight loss: (4) Microcytic anemia: PLAN: Plan This is a very pleasant 49-year-old gentleman with recent onset of abdominal pain and discovered tohave severe microcytic anemia - CT of the abdomen and pelvis shows gastric outlet obstruction with probable mass and metastatic disease - Will perform an upper endoscopy to evaluate his upper GI tract for iron deficiency anemia and abnormal CT scan. He was explained alternatives, risk andbenefits include not withstanding bleeding, infection, sepsis, perforation, needemergent . He will have an ASA of 3. 03/17/2025-I will start him on IV Reglan, IV azithromycin. I will also hold his nightly Zyprexa to sleep due to interaction with Reglan. Being that he has severe gastroparesis with signs and symptoms of gastric outlet obstruction. I think most of his medications will do better if given IV at this time. Visit Charges Inpatient E&M: 68325 Subs Hosp L3 03/17/251909 Jonathan Sheikh Signature (if applicable): CC: ~ Signed [facility]06-09-2025 Consult note Author Issac Gil [facility] Note Date/Time March 17, 2025 2:57p m [facility] Medical Records Department [address] [place] [address] Anesthesia Postop Eval II 03/17/25 1457 MR#: [id number] Acct: [id number] Name: BIANCA DELAROSA Rep #:[id number] : 1975 49 From: Issac Gil MD PCP: Dr. Humberto Jackson MD Status:ADM IN Y Race: C Location: [place] [address] Anesthesia Postop Eval I Sum Postop Eval Completion status Anesthesia document: Postop Eval 1 completed: Yes Anesthesia Postop Eval I Summary Anesthesia Postop Eval I Summary: Anesthesia Postop Eval I: Assessment Summary Airway patent Yes 03/17/25 13:42 [email or web address] Spontaneous unlabored Yes 03/17/25 13:42 [email or web address] respirations Mental status Awake,Calm 03/17/25 13:42 [email or web address] nausea Yes 03/17/25 13:42 [email or web address] Vomiting Yes 03/17/25 13:42 [email or web address] Anesthesia Postop Eval I: Fluid Summary Crystalloid volume administer 300 03/17/25 13:44 [email or web address] (ml) Colloids volume administered ( ml) Blood Product volume administered (ml) Total IV fluid infused 300 03/17/25 13:44 [email or web address] Anesthesia Postop Eval I: Summary Notes Anesthesia Complication Yes 03/17/25 13:42 [email or web address] Anesthesia Complication emesis upon 03/17/25 13:44 [email or web address] Comment: emergence, suctioned,. lungs CTA Post-operative progress note Anesthesia: Postop Eval II Evaluation Mental status: Awake Pain Level: 0 nausea: No Vomiting: No 03/17/251456 <Electronically signed by Issac Gil MD > Date _ Issac Ledesma Signature: Date CC: ~ Signed [facility] Work Phone: 1(394) 581-198806-09-2025 Consult note Author Maryann Mensah [facility] Note Date/Time March 17, 2025 1:44p [place] Medical Records Department [address] [place] [address] Anesthesia Postop Eval I 03/17/25 1339 MR#: [id number] Acct: [id number] Name: BIANCA DELAROSA Rep #:[id number] : 1975 49 From: Maryann Mensah PCP: Dr. Humberto Jackson MD Status:ADM IN Y Race: C Location: [place] [address] Anesthesia: Postop Eval I Current Vital Signs Temperature: 97.3 F Pulse Rate: 97 Blood Pressure: 110/74 Respiratory Rate: 18 Pulse Ox: 93 Oxygen Delivery Method: Nasal Cannula Oxygen Flow Rate (L/min): 2 Assessment Airway patent: Yes Spontaneous unlabored respirations: Yes Mental status: Awake and Calm nausea: Yes Vomiting: Yes Anesthesia Complication: Yes Anesthesia Complication Comment:: emesis upon emergence, suctioned,. lungs CTA Fluid Hydration Crystalloid volume administer (ml): 300 Total IV fluid infused: 300 Progress Note Anesthesia document: Postop Eval 1 completed: Yes 03/17/25 1344 <Electronically signed by Maryann Mensah > Date _ Maryann Diggs Signature: Date CC: ~ Signed [facility] Work Phone: 1(408) 811-284606-09-[address] [facility] Medical Records Department [address] [place] [address] Anesthesia Postop Eval II 03/17/25 1457 MR#: [id number] Acct: [id number] Name: BIANCA DELAROSA Rep #:[id number] : 1975 49 From: Issac Gil MD PCP: Dr. Humberto Jackson MD Status:ADM IN Y Race: C Location: [place] [address] -1 Anesthesia Postop Eval I Sum Postop Eval Completion status Anesthesia document: Postop Eval 1 completed: Yes Anesthesia Postop Eval I Summary Anesthesia Postop Eval I Summary: Anesthesia Postop Eval I: Assessment Summary Airway patent Yes 03/17/25 13:42 [email or web address] Spontaneous unlabored Yes 03/17/25 13:42 [email or web address] respirations Mental status Awake,Calm 03/17/25 13:42 [email or web address] nausea Yes 03/17/25 13:42 [email or web address] Vomiting Yes 03/17/25 13:42 [email or web address] Anesthesia Postop Eval I: Fluid Summary Crystalloid volume administer 300 03/17/25 13:44 [email or web address] (ml) Colloids volume administered ( ml) Blood Product volume administered (ml) Total IV fluid infused 300 03/17/25 13:44 [email or web address] Anesthesia Postop Eval I: Summary Notes Anesthesia Complication Yes 03/17/25 13:42 [email or web address] Anesthesia Complication emesis upon 03/17/25 13:44 [email or web address] Comment: emergence, suctioned,. lungs CTA Post-operative progress note Anesthesia: Postop Eval II Evaluation Mental status: Awake Pain Level: 0 nausea: No Vomiting: No 03/17/25 1457 > Date _ Issac Diggs Signature: Date CC: ~ Signed [facility]06-09-2025 Progress note Author Jonathan Martinez [facility] Note Date/Time March 17, 2025 12:49 pm [facility] Medical Records Department [address] [place] [address] Progress Note 03/17/25 1245 MR#: [id number] Acct: [id number] Name: BIANCA DELAROSA Rep #:[id number] : 1975 49 From: Jonathan Martinez DO PCP: Dr. Humberto Jackson MD Status:ADM IN Location: [place] FY804-2 Progress Note 49-year-old patient presented the emergency department complaint of not feeling well for over a week and a half. Patient states that he saw primary care physician who did some blood work and noted that he was anemic with hemoglobin of 9 over a week ago. Patient was scheduled to have a colonoscopy later this month. He was started oniron. He continues to not feel well. He complains of feeling lightheaded and dizzy with standing and heart racing. He denies blood in his stool or black tarry stool. Patient states he has not had a good bowel movement in 3 days and he attributes that to the iron. He denies fevers chills or sweats. He has had about an 18 pound weight loss in the last month because he is just not been eating as much and is cut his portionsizes. There is a family history of colon cancer. CT/Abdomen/Pelvis W IV Cont ONLY IMPRESSION: 1. Mildly distended stomach, secondary to gastric pylorus circumferential wall thickening and resultant luminal narrowing. Findings concerning for an underlying obstructive gastric mass/outlet obstruction. Recommend further evaluation with endoscopy. 2. Multiple prominent-mildly enlarged retroperitoneal nodes. 3. Diffuse nodularity within the anterior mesentery and bilateral paracolic gutters, concerning for peritoneal carcinomatosis. 4. Multiple sclerotic osseous lesions concerning for osseous metastasis. Physical Exam Const alert, oriented x3, no apparent distress and healthy appearing General Appearance: cooperative GI normal to inspection, nondistended, normoactive bowel sounds, soft to palpation,non-tender and non-distended Percussion: normal to percussion Rectal Exam: deferred Assessment & Plan Assessment/Plan (1) Gastric mass: (2) Symptomatic anemia: (3) Weight loss: (4) Microcytic anemia: PLAN: Plan This is a very pleasant 49-year-old gentleman with recent onset of abdominal pain and discovered to have severe microcytic anemia - CT of the abdomen and pelvis shows gastric outlet obstruction with probable mass and metastatic disease - Will perform an upper endoscopy to evaluate his upper GI tract for iron deficiency anemia and abnormal CT scan. He was explained alternatives, risk andbenefits include not withstanding bleeding, infection, sepsis, perforation, needemergent . He will have an ASA of 3. Visit Charges Inpatient E&M: 87448 Subs Hosp L3 03/17/25 1249 <Electronically signed by Jonathan Friend DO> Jonathan Martinez DO Cosigner Signature (if applicable): CC: ~ Signed [facility] Work Phone: [phone] 625-918606-09-2025 Consult note Author Issac Gil [facility] Note Date/Time March 17, 2025 12:[address] [facility] Medical Records Department [address] [place] [address] Pre-Anesthesia Evaluation 03/17/25 1200 MR#: [id number] Acct: [id number] Name: BIANCA DELAROSA Rep #:[id number] : 1975 49 From: Issac Gil MD PCP: Dr. Humberto Jackson MD Status:ADM IN Y Race: C Location: [place] [address] ASA Classification* ASA Classification ASA Classification: 2 Assessment & Plan Anesthesia* Anesthesia Assessment Anesthesia Assessment: Discussed sedation and/or anesthesia options, risks, benefits, and alternatives with patient/parents/legal guardian/POA. Questions invited. The patient/parents/legal guardian/POA seems to understand and agrees to proceedwith anesthesia plan. Reviewed the physical assessment, medical history, allergy history and patient home medications list prior to surgery/procedure/anesthetic and documented any changes. Performed airway and anesthesia risk assessments. Anesthesia Type Anesthesia Type: MAC Anesthesia Focused Assessment* Temperature: 98.7 F Pulse Rate: 81 Blood Pressure: 134/89 Respiratory Rate: 18 Pulse Ox: 98 Oxygen Flow Rate (L/min): 2 Airway Assessment Mouth opens: >3 cm Mallampati Score: II Labs Anesthesia Preop lab: CBC WBC 8.5 K/mm3 (4.4-11.0) 03/17/25 04:09 03/17/25 RBC 2.99 M/mm3 (4.6-6.2) L 03/17/25 04:09 03/17/25 Hgb 7.6 g/dL (13.0-16.5) L 03/17/25 10:20 03/17/25 Hct 24.1 % (40-54) L 03/17/25 10:20 03/17/25 Plt Count 363 K/mm3 (150-450) 03/17/25 04:09 03/17/25 CHEMISTRY Potassium 3.8 mmol/L (3.3-5.1) 03/17/25 04:09 03/17/25 Sodium 138 mmol/L (133-145) 03/17/25 04:09 03/17/25 Magnesium 2.2 mg/dL (1.5-2.2) 03/17/25 04:09 03/17/25 Phosphorus 3.9 mg/dL (2.7-4.5) 03/17/25 04:09 03/17/25 BUN 9 mg/dL (4-19) 03/17/25 04:09 03/17/25 Creatinine 0.72 mg/dL (0.70-1.20) 03/17/25 04:09 03/17/25 Glucose 181 mg/dL (70-99) H 03/17/25 04:09 03/17/25 POC Glucose 177 mg/dL (74-106) H 03/16/25 22:41 03/16/25 COAG PT 12.8 SECONDS (11.7-14.9) 10/22/18 05:05 Pre-Assessment Diagnosis/Proposed Procedure Planned Operative Procedure(s): EGD Anesthesia History Anesthesia History - chief scientific officer: Anesthesia History - chief scientific officer Hx Hospitalization Any Problems With Anesthesia No 04/14/23 16:13 Cholinesterase deficiency No 04/14/23 16:13 You/Your Family Experience No 04/14/23 16:13 fever (hyperthermia) with Relationship Recent Exposure to Contagious No 04/14/23 16:13 Disease Does patient have nerve No 04/14/23 16:13 stimulator Patient instructed to have device shut off --Does patient have Pacemaker or ICD? When Was Last Pacemaker Check QUESTION #4 FULL TEXT: You/Your Family Experience fever (hyperthermia) with Anesthesia Last Oral Intake Last Oral intake: Last Oral Intake NPO since Meds taken in AM with sips of water? Meds patient instructed to take am of surgery PONV PONV - chief scientific officer: PONV - chief scientific officer Female HX of Motion Sickness HX of N/V After Surgery Non-Smoker Duration of Surgery greater than 60 minutes Number of Risk Factors PONV Score Height & Weight Height & Weight: Anesthesia: Height & Weight Height 6 ft 2 in 03/16/25 15:56 Weight: 122.47 kg 03/16/25 15:56 Body Mass Index (BMI) 34.7 03/16/25 15:56 Respiratory Assessment Respiratory Assessment - chief scientific officer: Respiratory Tract Infection Hx - chief scientific officer Hx Respiratory Tract Infection No 04/14/23 16:13 STOP Sleep Apnea STOP Sleep Apnea - chief scientific officer: STOP Sleep Apnea - chief scientific officer Hx Hypertension Yes: recently pre htn 03/16/25 15:56 Hx Sleep Apnea Yes 03/16/25 15:56 CPAP No 03/16/25 15:56 BIPAP No 03/16/25 15:56 Do you snore loudly (louder than talking or can be heard Do you often feel tired/ fatigued/ sleepy during daytime? Has anyone observed you stop breathing during sleep? STOP Results Positive 03/16/25 15:56 QUESTION #5 FULL TEXT : Do you snore loudly (louder than talking or can be heard through closed doors)? 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 Specify any problems Hx of Preganancy in last 3 N/A 03/16/25 15:56 Months Nurse Filling Out Transfusion NMARTY 03/16/25 15:56 & Questions: Date: 03/16/25 03/16/25 15:56 Time: 16:13 03/16/25 15:56 Patient unable to answer at this time (ie. confused, unrespo /Reproduction History /Reproductive History - chief scientific officer: /Reproductive Hx- chief scientific officer Hx Now Gestational Age (in weeks): EDC: Hx Hx Para Hx Section SAB No 04/14/23 16:13 Active Medications Active Medications: Current Medications Generic Name Dose Route Start Last Admin Trade Name Freq PRN Reason Stop Dose Admin Acetaminophen 650 mg 03/16/25 15:57 Acetaminophen 325 Mg Tablet PO Q6H PRN PRN Pain 1-10 Or Fever>100.7 Albuterol Sulfate 2.5 mg 03/16/25 15:57 Albuterol 2.5 Mg/3 Ml Vial.Neb. INHALATION Q2H PRN PRN SOB &/OR WHEEZING Atorvastatin Calcium 80 mg 03/17/25 10:00 Atorvastatin Calcium 80 Mg Tablet PO DAILY SIENA Buspirone HCl 15 mg 03/16/25 22:00 03/16/25 22:38 Buspirone 15 Mg Tablet PO 15 mg BID SIENA Administration Doxepin HCl 10 mg 03/16/25 22:00 03/16/25 22:38 Doxepin Hydrochloride 10 Mg Capsule PO 10 mg QHS SIENA Administration Duloxetine HCl 60 mg 03/17/25 10:00 Duloxetine Hcl 60 Mg Capsule PO DAILY SIENA Fenofibrate 48 mg 03/17/25 10:00 Fenofibrate 48 Mg Tablet PO DAILY SIENA Fluticasone Propionate 1 spray 03/16/25 15:57 Fluticasone 0.05% 1 [place] Nasal.Sry NASAL DAILY PRN allergic symptoms Pantoprazole Sodium 80 mg/ 100 mls @ 10 mls/hr 03/16/25 15:57 03/17/25 09:29 Sodium Chloride CONT INF 03/19/25 15:58 0 mls/hr Q10H SIENA Infusion Sodium Chloride 250 mls @ 15 mls/hr 03/16/25 16:19 IV .[id number] PRN Saline Flush Sodium Chloride 250 mls @ 15 mls/hr 03/16/25 16:19 IV .[id number] PRN Additional IVPB Infusion Ferric Sodium Gluconate 270 mls @ 135 mls/hr 03/16/25 18:00 03/17/25 09:21 Complex 250 mg/ Sodium IV 03/18/25 11:59 135 mls/hr Chloride DAILY SIENA Administration Insulin Human Lispro 0 unit 03/16/25 16:00 03/17/25 06:24 Insulin Lispro 100 Unit/Ml Insuln.Pen SC Not Given ACHS SIENA Protocol Melatonin 3 mg 03/16/25 15:57 Melatonin 3 Mg Tablet PO QHS PRN PRN INSOMNIA Multivitamins 1 tablet 03/17/25 08:00 Multivitamins,Therapeutic Tablet PO DAILYCM SIENA Nutritional Formula (Lactose Free) 120 ml 03/16/25 17:00 03/16/25 17:18 Ensure Plus High Protein 120 Ml Liquid PO 120 ml TIDCM SIENA Administration Nutritional Formula (Lactose Free) 120 ml 03/17/25 10:00 Ensure Plus High Protein 120 Ml Liquid PO 4X/DAY SIENA Olanzapine 5 mg 03/16/25 22:00 03/16/25 22:43 Olanzapine 5 Mg/Tab Tab.Rapdis PO 5 mg QHS SIENA Administration Protocol Ondansetron HCl 4 mg 03/16/25 15:57 Ondansetron 4 Mg/2 Ml Vial IV Q8H PRN PRN NAUSEA/VOMITING Pantoprazole Sodium 40 mg 03/20/25 10:00 Pantoprazole Sodium 40 Mg Tablet PO BID SIENA Senna/Docusate Sodium 2 tablet 03/16/25 15:57 Senna/Docusate Sodium 1 Tablet PO BID PRN PRN Constipation Sodium Chloride 10 - 40 ml 03/16/25 16:19 0.9% Saline Lock 10 Ml Syringe IV UD PRN SALINE FLUSH PFSH Medical History History of rectal abscess Multiple thyroid nodules Restrictive airway disease Abnormal chest CT Pneumonia Acute respiratory failure Shortness of breath Community acquired pneumonia Chronic headache Acute respiratory failure with hypoxia GERD (gastroesophageal reflux disease) Anxiety and depression Diabetes mellitus, type II Obesity (BMI 30-39.9) HLD (hyperlipidemia) MIKE (obstructive sleep apnea) Home Medications ?Medication ?Instructions ?Recorded ?Last Taken ?Type esomeprazole magnesium 40 mg 40 mg PO QHS gerd 8 03/15/25 22:00 History capsule,delayed release 40 mg fenofibrate 50 mg capsule 54 mg PO DAILY cholesterol 0 10/10/17 03/16/25 08:00 History 54 mg multivitamin 1 ea PO DAILY supplement 11/2603/16/25 08:00 History 1 ea atorvastatin 20 mg tablet 20 mg PO DAILY high choleste rol 03/22/18 03/16/25 08:00 History 20 mg metformin 500 mg tablet 1,000 mg PO BID diabetes 03/16/25 08:00 History 1,000 mg doxepin 10 mg capsule 10 mg PO QHS insomnia 03/15/25 22:00 History 10 mg olanzapine 2.5 mg tablet 2.5 mg PO QHS insomnia 10/2003/15/25 22:00 History 2.5 mg zonisamide 25 mg capsule 25 mg PO DAILY unknown 10/2003/16/25 08:00 History 25 mg buspirone 15 mg tablet mg PO BID anxiety 04/14/23 0 03/16/25 08:00 History 15 mg duloxetine 60 mg capsule,delayed mg PO DAILY depressio n 04/14/23 03/16/25 08:00 History release 60 mg insulin lispro protamine-lispro subcut Type 2 DM 04/14 Unknown History 100 unit/mL (75-25) subcutaneous pen atorvastatin 80 mg tablet 80 mg PO DAILY hypercholestr emia 03/16/25 Unknown History dexmethylphenidate 20 mg 20 mg PO DAILY on hold 03/16 Unknown History capsule,extended release [id number] Held on 03/16/25. Instructions: Order Changed duloxetine 30 mg capsule,delayed 30 mg PO DAILY depres brittni 03/16/25 Unknown History release ferrous sulfate 325 mg (65 mg 325 mg PO BID anemia 06/02 Unknown History iron) tablet Allergy/AdvReac Type Severity Reaction Status Date / Time citalopram Allergy Unknown Unknown Verified 03/16/25 12:07 venlafaxine Allergy Unknown Unknown Verified 03/16/25 12:07 metoclopramide (From Reglan) Allergy weirds me Verified 03/16/25 12:07 out sertraline (From Zoloft) Allergy sexual Verified 03/16/25 12:07 side effects topiramate (From Topamax) Allergy Unknown Verified 03/16/25 12:07 Family History Father Colon cancer at age 53 Heart disease Myocardial infarction Surgical History Hx of drainage of abscess (~04/2023) Hx of appendectomy Hx of tonsillectomy Social History household members: spouse housing: house current occupational status: employed 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 03/17/25 1201 <Electronically signed by Issac Gil MD > Date _ Issac Nguyenign Signature: Date CC: ~ Signed [facility] Work Phone: 1(735) 821-290306-09-[address] [facility] Medical Records Department [address] [place] [address] Anesthesia Postop Eval I 03/17/25 1339 MR#: [id number] Acct: [id number] Name: BIANCA DELAROSA AVA Rep #:[id number] : 1975 49 From: Maryann Mensah PCP: Dr. Humberto Jackson MD Status:ADM IN Y Race: C Location: [place] [address] Anesthesia: Postop Eval I Current Vital Signs Temperature: 97.3 F Pulse Rate: 97 Blood Pressure: 110/74 Respiratory Rate: 18 Pulse Ox: 93 Oxygen Delivery Method: Nasal Cannula Oxygen Flow Rate (L/min): 2 Assessment Airway patent: Yes Spontaneous unlabored respirations: Yes Mental status: Awake and Calm nausea: Yes Vomiting: Yes Anesthesia Complication: Yes Anesthesia Complication Comment:: emesis upon emergence, suctioned,. lungs CTA Fluid Hydration Crystalloid volume administer (ml): 300 Total IV fluid infused: 300 Progress Note Anesthesia document: Postop Eval 1 completed: Yes 03/17/25 1344 > Date _ Maryann Diggs Signature: Date CC: ~ Signed [facility]06-09-[address] [facility] Medical Records Department [address] [place] [address] EGD Report MR#: [id number] Acct: [id number] Name: BIANCA DELAROSA Rep #:[id number] : 1975 49 From: Jonathan Martinez DO PCP: Dr. Humberto Jackson MD Status:ADM IN Patient Name: Bianca Delarosa Procedure Date: 03/17/2025 12:52 PM Date of : 1975 Age: 49 Procedure: Upper GI endoscopy Indications: Iron deficiency anemia, Unexplained iron deficiency anemia, Functional Dyspepsia, Indigestion, Heartburn, Suspected upper gastrointestinal bleeding Providers: Jonathan Martinez DO Medicines: Monitored Anesthesia Care Patient Profile: This is a 49 year old male. Refer to note in patient chart for documentation of history and physical. Patient has symptoms of acute abdominal distention and acute epigastric abdominal pain. Previously obtained CT showed a mass in the stomach. Laboratory tests results include iron deficiency anemia and anemia due to chronic blood loss. Complications: No immediate complications. Procedure: Pre-Anesthesia Assessment: - Prior to the procedure, a History and Physical was performed, and patient medications and allergies were reviewed. The patient is competent. The risks and benefits of the procedure and the sedation options and risks were discussed with the patient. All questions were answered and informed consent was obtained. Patient identification and proposed procedure were verified by the physician in the pre-procedure area. Mental Status Examination: alert and oriented. Airway Examination: normal oropharyngeal airway and neck mobility. Respiratory Examination: clear to auscultation. CV Examination: normal. Prophylactic Antibiotics: The patient does not require prophylactic antibiotics. Prior Anticoagulants: The patient has taken no anticoagulant or antiplatelet agents except for NSAID medication. ASA Grade Assessment: II - A patient with mild systemic disease. After reviewing the risks and benefits, the patient was deemed in satisfactory condition to undergo the procedure. The anesthesia plan was to use monitored anesthesia care (MAC). Immediately prior to administration of medications, the patient was re-assessed for adequacy to receive sedatives. The heart rate, respiratory rate, oxygen saturations, blood pressure, adequacy of pulmonary ventilation, and response to care were monitored throughout the procedure. The physical status of the patient was re-assessed after the procedure. After obtaining informed consent, the endoscope was passed under direct vision. Throughout the procedure, the patient's blood pressure, pulse, and oxygen saturations were monitored continuously. The gastroscope was introduced through the mouth, and advanced to the third part of the duodenum. Small bowel enteroscopy was deemed necessary. The upper GI endoscopy was accomplished without difficulty. The patient tolerated the procedure well. Scope In: 1:06:00 PM Scope Out: 1:17:07 PM Total Procedure Duration Time 0 hours 11 minutes 7 seconds Findings: LA Grade D (one or more mucosal breaks involving at least 75% of esophageal circumference) esophagitis with no bleeding was found 31 to 40 cm from the incisors. Suspect gastroparesis due to absence of peristalsis, patient symptoms and retained gastric contents. A large amount of food (residue) was found in the entire examined stomach. One oozing cratered gastric ulcer with pigmented material was found in the gastric antrum and in the prepyloric region of the stomach. The lesion was 21 mm in largest dimension. Biopsies were taken with a cold forceps for histology. Verification of patient identification for the specimen was done. Biopsies were taken with a cold forceps for Helicobacter pylori testing. Verification of patient identification for the specimen was done. Estimated blood loss was minimal. No gross lesions were noted in the entire examined duodenum. Impression: - LA Grade D erosive esophagitis with no bleeding. - Gastroparesis. - A large amount of food (residue) in the stomach with functional gastric outlet obstruction due to lack of accommodation of the distal portion of the stomach - Oozing gastric ulcer with pigmented material. Biopsied. - No gross lesions in the entire examined duodenum. Recommendation: - Discharge patient to home. - Clear liquid diet. - Continue present medications. - Await pathology results. - Repeat upper endoscopy to evaluate the response to therapy. - Metoclopramide 10 mg IV every 6 hours to increase gastric motility - Azithromycin 1 g IV to increase small bowel motility -,Patient may need a stent bridging the pylorus - Consider NG tube with gastric lavage to flush the fluid out of his stomach Procedure Code(s): --- Professional --- 06569, Small intestinal endoscopy, enteroscopy beyond second portion of duodenum, not including ileum; with biopsy, single or multiple CPT copyright 2021 [employer]. All rights reserved. The codes documented in this report are preliminary and upon sales estimator review may be revised to meet current compliance requirements. Jonathan Martinez DO 03/17/2025 1:27:51 PM This report has been signed electronically. Number of Addenda: 0 Note Initiated On: 03/17/2025 12:52 PM 03/17/25 1327 Date _ Jonathan Martinez DO Cosigner Signature: Date (if indicated) CC: Dr. Humberto Jackson MD; Jonathan Martinez DO ~ Date Dictated: 03/17/25 1252 Date Transcribed: Drill Setup Operator: RF Signed [facility]06-09-[address] [facility] Medical Records Department [address] [place] [address] Operative Report - CC Letter MR#: [id number] Acct: [id number] Name: WASHINGTONBIANCA AVA Rep #:[id number] : 1975 49 From: Jonathan Martinez DO PCP: Dr. Humberto Jackson MD Status:ADM IN 03/17/2025 Humberto Jackson MD Re : Upper GI endoscopy procedure for Bianca Delarosa Dear Dr. Jackson This procedure was performed on Monday, March 17, 2025. My impressions and recommendations are as follows: Impressions : - LA Grade D erosive esophagitis with no bleeding. - Gastroparesis. - A large amount of food (residue) in the stomach with functional gastric outlet obstruction due to lack of accommodation of the distal portion of the stomach - Oozing gastric ulcer with pigmented material. Biopsied. - No gross lesions in the entire examined duodenum. Recommendations : - Discharge patient to home. - Clear liquid diet. - Continue present medications. - Await pathology results. - Repeat upper endoscopy to evaluate the response to therapy. - Metoclopramide 10 mg IV every 6 hours to increase gastric motility - Azithromycin 1 g IV to increase small bowel motility -,Patient may need a stent bridging the pylorus - Consider NG tube with gastric lavage to flush the fluid out of his stomach My findings are described in the full procedure note, which is enclosed. If I can be of further assistance, please feel free to contact me at . Sincerely, Jonathan Martinez DO 03/17/2025 1:27:51 PM This report has been signed electronically. 03/17/25 1327 Date _ Jonathan Martinez DO Cosigner Signature: Date (if indicated) CC: Dr. Humberto Jackson MD; Dr. Tia Bergman DO; Dr. Jacky Jaimes DO ~ Date Dictated: 03/17/25 1252 Date Transcribed: Drill Setup Operator: RF Signed [facility]06-09-2025 Progress note [facility] Medical Records Department [address] [place] [address] Progress Note 03/17/25 1245 MR#: [id number] Acct: [id number] Name: BIANCA DELAROSA Rep #:[id number] : 1975 49 From: Jonathan Martinez DO PCP: Dr. Humberto Jackson MD Status:ADM IN Location: [facility] [place] [id number] Progress Note 49-year-old patient presented the emergency department complaint of not feeling well for over a week and a half. Patient states that he saw primary care physician who did some blood work and noted that he was anemic with hemoglobin of 9 over a week ago. Patient was scheduled to have a colonoscopy later this month. He was started oniron. He continues to not feel well. He complains of feeling lightheaded and dizzy with standing and heart racing. He denies blood in his stool or black tarry stool. Patient states he has not had a good bowel movement in3 days and he attributes that to the iron. He denies fevers chills or sweats. He has had about an 18 pound weight loss in the last month because he is just not been eating as much and is cut his portionsizes. There is a family history of colon cancer. CT/Abdomen/Pelvis W IV Cont ONLY IMPRESSION: 1. Mildly distended stomach, secondary to gastric pylorus circumferential wall thickening and resultant luminal narrowing. Findings concerning for an underlying obstructive gastric mass/outlet obstruction. Recommend further evaluation with endoscopy. 2. Multiple prominent-mildly enlarged retroperitoneal nodes. 3. Diffuse nodularity within the anterior mesentery and bilateral paracolic gutters, concerning forperitoneal carcinomatosis. 4. Multiple sclerotic osseous lesions concerning for osseous metastasis. Physical Exam Const alert, oriented x3, no apparent distress and healthy appearing General Appearance: cooperative GI normal to inspection, nondistended, normoactive bowel sounds, soft to palpation,non-tender and non-distended Percussion: normal to percussion Rectal Exam: deferred Assessment & Plan Assessment/Plan (1) Gastric mass: (2) Symptomatic anemia: (3) Weight loss: (4) Microcytic anemia: PLAN: Plan This is a very pleasant 49-year-old gentleman with recent onset of abdominal pain and discovered tohave severe microcytic anemia - CT of the abdomen and pelvis shows gastric outlet obstruction with probable mass and metastatic disease - Will perform an upper endoscopy to evaluate his upper GI tract for iron deficiency anemia and abnormal CT scan. He was explained alternatives, risk andbenefits include not withstanding bleeding, infection, sepsis, perforation, needemergent . He will have an ASA of 3. Visit Charges Inpatient E&M: 85446 [facility] Hosp L3 03/17/25 7967 [facility] Friend DO Cosigner Signature (if applicable): CC: ~ Signed [facility]06-09-[address] [facility] Medical Records Department [address] [place] [address] Pre-Anesthesia Evaluation 03/17/25 1200 MR#: [id number] Acct: [id number] Name: BIANCA DELAROSA Rep #:[id number] : 1975 49 From: Issac Gil MD PCP: Dr. Humberto Jackson MD Status:ADM IN Y Race: C Location: [place] [address] ASA Classification* ASA Classification ASA Classification: 2 Assessment & Plan Anesthesia* Anesthesia Assessment Anesthesia Assessment: Discussed sedation and/or anesthesia options, risks, benefits, and alternatives with patient/parents/legal guardian/POA. Questions invited. The patient/parents/legal guardian/POA seems to understand and agrees to proceedwith anesthesia plan. Reviewed the physical assessment, medical history, allergy history and patient home medications list prior to surgery/procedure/anesthetic and documented any changes. Performed airway and anesthesia risk assessments. Anesthesia Type Anesthesia Type: MAC Anesthesia Focused Assessment* Temperature: 98.7 F Pulse Rate: 81 Blood Pressure: 134/89 Respiratory Rate: 18 Pulse Ox: 98 Oxygen Flow Rate (L/min): 2 Airway Assessment Mouth opens: >3 cm Mallampati Score: II Labs Anesthesia Preop lab: CBC WBC 8.5 K/mm3 (4.4-11.0) 03/17/25 04:09 03/17/25 RBC 2.99 M/mm3 (4.6-6.2) L 03/17/25 04:09 03/17/25 Hgb 7.6 g/dL (13.0-16.5) L 03/17/25 10:20 03/17/25 Hct 24.1 % (40-54) L 03/17/25 10:20 03/17/25 Plt Count 363 K/mm3 (150-450) 03/17/25 04:09 03/17/25 CHEMISTRY Potassium 3.8 mmol/L (3.3-5.1) 03/17/25 04:09 03/17/25 Sodium 138 mmol/L (133-145) 03/17/25 04:09 03/17/25 Magnesium 2.2 mg/dL (1.5-2.2) 03/17/25 04:09 03/17/25 Phosphorus 3.9 mg/dL (2.7-4.5) 03/17/25 04:09 03/17/25 BUN 9 mg/dL (4-19) 03/17/25 04:09 03/17/25 Creatinine 0.72 mg/dL (0.70-1.20) 03/17/25 04:09 03/17/25 Glucose 181 mg/dL (70-99) H 03/17/25 04:09 03/17/25 POC Glucose 177 mg/dL (74-106) H 03/16/25 22:41 03/16/25 COAG PT 12.8 SECONDS (11.7-14.9) 10/22/18 05:05 Pre-Assessment Diagnosis/Proposed Procedure Planned Operative Procedure(s): EGD Anesthesia History Anesthesia History - chief scientific officer: Anesthesia History - chief scientific officer Hx Hospitalization Any Problems With Anesthesia No 04/14/23 16:13 Cholinesterase deficiency No 04/14/23 16:13 You/Your Family Experience No 04/14/23 16:13 fever (hyperthermia) with Relationship Recent Exposure to Contagious No 04/14/23 16:13 Disease Does patient have nerve No 04/14/23 16:13 stimulator Patient instructed to have device shut off --Does patient have Pacemaker or ICD? When Was Last Pacemaker Check QUESTION #4 FULL TEXT: You/Your Family Experience fever (hyperthermia) with Anesthesia Last Oral Intake Last Oral intake: Last Oral Intake NPO since Meds taken in AM with sips of water? Meds patient instructed to take am of surgery PONV PONV - chief scientific officer: PONV - chief scientific officer Female HX of Motion Sickness HX of N/V After Surgery Non-Smoker Duration of Surgery greater than 60 minutes Number of Risk Factors PONV Score Height & Weight Height & Weight: Anesthesia: Height & Weight Height 6 ft 2 in 03/16/25 15:56 Weight: 122.47 kg 03/16/25 15:56 Body Mass Index (BMI) 34.7 03/16/25 15:56 Respiratory Assessment Respiratory Assessment - chief scientific officer: Respiratory Tract Infection Hx - chief scientific officer Hx Respiratory Tract Infection No 04/14/23 16:13 STOP Sleep Apnea STOP Sleep Apnea - chief scientific officer: STOP Sleep Apnea - chief scientific officer Hx Hypertension Yes: recently pre htn 03/16/25 15:56 Hx Sleep Apnea Yes 03/16/25 15:56 CPAP No 03/16/25 15:56 BIPAP No 03/16/25 15:56 Do you snore loudly (louder than talking or can be heard Do you often feel tired/ fatigued/ sleepy during daytime? Has anyone observed you stop breathing during sleep? STOP Results Positive 03/16/25 15:56 QUESTION #5 FULL TEXT : Do you snore loudly (louder than talking or can be heard through closeddoors)? 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 Specify any problems Hx of Preganancy in last 3 N/A 03/16/25 15:56 Months Nurse Filling Out Transfusion NMARTY 03/16/25 15:56 & Questions: Date: 03/16/25 03/16/25 15:56 Time: 16:13 03/16/25 15:56 Patient unable to answer at this time (ie. confused, unrespo /Reproduction History /Reproductive History - chief scientific officer: /Reproductive Hx- chief scientific officer Hx Now Gestational Age (in weeks): EDC: Hx Hx Para Hx Section SAB No 04/14/23 16:13 Active Medications Active Medications: Current Medications Generic Name Dose Route Start Last Admin Trade Name Freq PRN Reason Stop Dose Admin Acetaminophen 650 mg 03/16/25 15:57 Acetaminophen 325 Mg Tablet PO Q6H PRN PRN Pain 1-10 Or Fever>100.7 Albuterol Sulfate 2.5 mg 03/16/25 15:57 Albuterol 2.5 Mg/3 Ml Vial.Neb. INHALATION Q2H PRN PRN SOB &/OR WHEEZING Atorvastatin Calcium 80 mg 03/17/25 10:00 Atorvastatin Calcium 80 Mg Tablet PO DAILY SIENA Buspirone HCl 15 mg 03/16/25 22:00 03/16/25 22:38 Buspirone 15 Mg Tablet PO 15 mg BID SIENA Administration Doxepin HCl 10 mg 03/16/25 22:00 03/16/25 22:38 Doxepin Hydrochloride 10 Mg Capsule PO 10 mg QHS SIENA Administration Duloxetine HCl 60 mg 03/17/25 10:00 Duloxetine Hcl 60 Mg Capsule PO DAILY SIENA Fenofibrate 48 mg 03/17/25 10:00 Fenofibrate 48 Mg Tablet PO DAILY SIENA Fluticasone Propionate 1 spray 03/16/25 15:57 Fluticasone 0.05% 1 [place] Nasal.Sry NASAL DAILY PRN allergic symptoms Pantoprazole Sodium 80 mg/ 100 mls @ 10 mls/hr 03/16/25 15:57 03/17/25 09:29 Sodium Chloride CONT INF 03/19/25 15:58 0 mls/hr Q10H SIENA Infusion Sodium Chloride 250 mls @ 15 mls/hr 03/16/25 16:19 IV .[id number] PRN Saline Flush Sodium Chloride 250 mls @ 15 mls/hr 03/16/25 16:19 IV .[id number] PRN Additional IVPB Infusion Ferric Sodium Gluconate 270 mls @ 135 mls/hr 03/16/25 18:00 03/17/25 09:21 Complex 250 mg/ Sodium IV 03/18/25 11:59 135 mls/hr Chloride DAILY SIENA Administration Insulin Human Lispro 0 unit 03/16/25 16:00 03/17/25 06:24 Insulin Lispro 100 Unit/Ml Insuln.Pen SC Not Given ACHS [facility] Protocol Melatonin 3 mg 03/16/25 15:57 Melatonin 3 Mg Tablet PO QHS PRN PRN INSOMNIA Multivitamins 1 tablet 03/17/25 08:00 Multivitamins,Therapeutic Tablet PO DAILYCM SIENA Nutritional Formula (Lactose Free) 120 ml 03/16/25 17:00 03/16/25 17:18 Ensure Plus High Protein 120 Ml Liquid PO 120 ml TIDCM SIENA Administration Nutritional Formula (Lactose Free) 120 ml 03/17/25 10:00 Ensure Plus High Protein 120 Ml Liquid PO 4X/DAY SIENA Olanzapine 5 mg 03/16/25 22:00 03/16/25 22:43 Olanzapine 5 Mg/Tab Tab.Rapdis PO 5 mg QHS [facility] Administration Protocol Ondansetron HCl 4 mg 03/16/25 15:57 Ondansetron 4 Mg/2 Ml Vial IV Q8H PRN PRN NAUSEA/VOMITING Pantoprazole Sodium 40 mg 03/20/25 10:00 Pantoprazole Sodium 40 Mg Tablet PO BID [facility] Senna/Docusate Sodium 2 tablet 03/16/25 15:57 Senna/Docusate Sodium 1 Tablet PO BID PRN PRN Constipation Sodium Chloride 10 - 40 ml 03/16/25 16:19 0.9% Saline Lock 10 Ml Syringe IV UD PRN SALINE FLUSH [facility] Medical History History of rectal abscess Multiple thyroid nodules Restrictive airway disease Abnormal chest CT Pneumonia Acute respiratory failure Shortness of breath Community acquired pneumonia Chronic headache Acute respiratory failure with hypoxia GERD (gastroesophageal reflux disease) Anxiety and depression Diabetes mellitus, type II Obesity (BMI 30-39.9) HLD (hyperlipidemia) MIKE (obstructive sleep apnea) Home Medications ?Medication ?Instructions ?Recorded ?Last Taken ?Type esomeprazole magnesium 40 mg 40 mg PO QHS gerd 8 03/15/25 22:00 History capsule,delayed release 40 mg fenofibrate 50 mg capsule 54 mg PO DAILY cholesterol 0 10/10/17 03/16/25 08:00 History 54 mg multivitamin 1 ea PO DAILY supplement 11/2603/16/25 08:00 History 1 ea atorvastatin 20 mg tablet 20 mg PO DAILY high choleste rol 03/22/18 03/16/25 08:00 History 20 mg metformin 500 mg tablet 1,000 mg PO BID diabetes 03/16/25 08:00 History 1,000 mg doxepin 10 mg capsule 10 mg PO QHS insomnia 03/15/25 22:00 History 10 mg olanzapine 2.5 mg tablet 2.5 mg PO QHS insomnia 10/2003/15/25 22:00 History 2.5 mg zonisamide 25 mg capsule 25 mg PO DAILY unknown 10/2003/16/25 08:00 History 25 mg buspirone 15 mg tablet mg PO BID anxiety 04/14/23 0 03/16/25 08:00 History 15 mg duloxetine 60 mg capsule,delayed mg PO DAILY depressio n 04/14/23 03/16/25 08:00 History release 60 mg insulin lispro protamine-lispro subcut Type 2 DM 04/14 Unknown History 100 unit/mL (75-25) subcutaneous pen atorvastatin 80 mg tablet 80 mg PO DAILY hypercholestr emia 03/16/25 Unknown History dexmethylphenidate 20 mg 20 mg PO DAILY on hold 03/16 Unknown History capsule,extended release [id number] Held on 03/16/25. Instructions: Order Changed duloxetine 30 mg capsule,delayed 30 mg PO DAILY depres brittni 03/16/25 Unknown History release ferrous sulfate 325 mg (65 mg 325 mg PO BID anemia 06/02 Unknown History iron) tablet Allergy/AdvReac Type Severity Reaction Status Date / Time citalopram Allergy Unknown Unknown Verified 03/16/25 12:07 venlafaxine Allergy Unknown Unknown Verified 03/16/25 12:07 metoclopramide (From Reglan) Allergy weirds me Verified 03/16/25 12:07 out sertraline (From Zoloft) Allergy sexual Verified 03/16/25 12:07 side effects topiramate (From Topamax) Allergy Unknown Verified 03/16/25 12:07 Family History Father Colon cancer at age 53 Heart disease Myocardial infarction Surgical History Hx of drainage of abscess (~04/2023) Hx of appendectomy Hx of tonsillectomy Social History household members: spouse housing: house current occupational status: employed 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 03/17/25 1201 > Date _ Issac Diggs Signature: Date CC: ~ Signed [facility]06-08-2025 Discharge summary Author Macey Merchant [facility] Note Date/Time March 16, 2025 4:23p m [facility] Medical Records Department [address] [place] [address] Emergency Department Summary 03/16/25 MR#: [id number] Acct: [id number] Name: BIANCA DELAROSA Rep #:[id number] : 1975 49 From: Macey Merchant DO PCP: Dr. Humberto Jackson MD Status:ADM IN Location: [place] [address] HPI History of Present Illness Chief Complaint: Palpitations Detail of Chief Complaint: Weakness, dyspnea, racing heart Informant: patient Narrative Narrative: Patient presents the emergency department complaint of not feeling well for overa week and a half. Patient states that he saw primary care physician who did some blood work and noted that he was anemic with hemoglobin of 9 over a week ago. Patient was scheduled to have a colonoscopy later this month. He was started on iron. He continues to not feel well. Complains of feeling lightheaded and dizzy with standing and heart racing. Denies blood in his stoolor black tarry stool. Patient states he has not had a good bowel movement in 3 days and he attributes that to the iron. He denies fevers chills or sweats. Hehas had about an 18 pound weight loss in the last month because he is just not been eating as much and is cut his portion sizes. There is a family history of colon cancer. [facility] Medical History History of rectal abscess Multiple thyroid nodules Restrictive airway disease Abnormal chest CT Pneumonia Acute respiratory failure Shortness of breath Community acquired pneumonia Chronic headache Acute respiratory failure with hypoxia GERD (gastroesophageal reflux disease) Anxiety and depression Diabetes mellitus, type II Obesity (BMI 30-39.9) HLD (hyperlipidemia) MIKE (obstructive sleep apnea) Home Medications ?Medication ?Instructions ?Recorded ?Last Taken ?Type esomeprazole magnesium 40 mg 40 mg PO QHS gerd 8 10/19/18 History capsule,delayed release fenofibrate 50 mg capsule 54 mg PO DAILY cholesterol 0 10/10/17 10/20/18 History multivitamin 1 ea PO DAILY supplement 11/2610/20/18 History atorvastatin 20 mg tablet 20 mg PO DAILY 03/22/1810/09 History fluoxetine 40 mg capsule 60 mg PO QDAY 03/22/1810/20 History metformin 500 mg tablet 1,000 mg PO BID diabetes 10/20/18 History Fish Oil 1,000 mg Capsule 1,000 mg PO BID 10/20/1809/26 History doxepin 10 mg capsule 10 mg PO QHS 10/20/18 History olanzapine 2.5 mg tablet 2.5 mg PO QHS 10/20/1810/19 History zonisamide 25 mg capsule 25 mg PO DAILY 10/20/1810/09 History empagliflozin 25 mg tablet 25 mg PO DAILY #30 tabs Unknown Rx buspirone 15 mg tablet mg 04/14/23 Unknown History duloxetine 60 mg capsule,delayed mg PO 04/14/23 Unknow n History release fluticasone propionate 50 1 spray intranasal DAILY PRN 04/14/23 Unknown History mcg/actuation nasal allergic symptoms spray,suspension insulin lispro protamine-lispro subcut 04/14/23 Unknow n History 100 unit/mL (75-25) subcutaneous pen methylphenidate HCl 10 mg biphasic mg PO 04/14/23 Unkn own History 50-50 capsule,extended release amoxicillin 875 mg-potassium 1 tab PO Q12H #14 tabs Unknown Rx clavulanate 125 mg tablet oxycodone-acetaminophen 5 mg-325 1 - 2 tab PO Q6H PRN pain 3 days 03/10/24 Unknown Rx mg tablet #14 tabs Allergy/AdvReac Type Severity Reaction Status Date / Time citalopram Allergy Unknown Unknown Verified 03/16/25 12:07 venlafaxine Allergy Unknown Unknown Verified 03/16/25 12:07 metoclopramide (From Reglan) Allergy esther wv Verified 03/16/25 12:07 out sertraline (From Zoloft) Allergy sexual Verified 03/16/25 12:07 side effects topiramate (From Topamax) Allergy Unknown Verified 03/16/25 12:07 Family History Father Colon cancer at age 53 Heart disease Myocardial infarction Surgical History Hx of drainage of abscess (~04/2023) Hx of appendectomy Hx of tonsillectomy Social History Smoking Status: Never smoker second hand exposure: No alcohol intake: never substance use type: does not use caffeine: Yes what type of physical activity do you participate in: none frequency: does not exercise seatbelt use: always ROS ROS ED Review of Systems ROS Unobtainable: other Constitutional Constitutional ED: Reports lethargy; Denies chills, fever(s), sweats or weight loss Eyes Eyes: Denies blurry vision, change in vision or diplopia ENT ENT ED: Denies rhinorrhea or sore throat Cardiovascular Cardiovascular: Reports chest pain and racing heartbeat; Denies orthopnea Respiratory/Chest Respiratory/Chest: Denies cough, dyspnea, dyspnea on exertion, orthopnea or sputum Gastrointestinal Gastrointestinal: Reports abdominal pain; Denies diarrhea, nausea or vomiting Genitourinary Genitourinary ED: Denies dysuria, hematuria or urinary frequency Musculoskeletal Musculoskeletal: Denies arthralgias, back pain, myalgias or neck pain Integumentary Denies abscess, Abrasions or rash Neurologic Neurologic: Reports weakness and other Details: Lightheadedness ; Denies headache(s) Psychiatric Psychiatric: Denies anxiety, depression or suicidal thoughts Endocrine Endocrinology: Denies polydipsia, polyphagia or polyuria Hematologic/Lymphatic Hematologic/Lymphatic: Denies easy bleeding, easy bruising or lymphadenopathy Allergic/Immunologic Allergic/Immunologic ED: Denies mouth swelling, tongue swelling or urticaria EXAM Physical Exam Const Vital Signs: 03/16/25 12:07 03/16/25 12:07 03/16/25 12:20 Temperature 98.4 F Temperature Source Oral Pulse Rate 99 Respiratory Rate 18 Respiratory Effort Normal Non-Labored Respiratory Depth Normal Respiratory Pattern Normal Blood Pressure 146/88 H Blood Pressure Mean 107 Blood Pressure Source Blood Pressure Position Blood Pressure Location Pulse Ox 99 Oxygen Delivery Method Room Air Room Air Room Air 03/16/25 13:07 03/16/25 13:15 03/16/25 13:30 Temperature Temperature Source Pulse Rate 98 96 Respiratory Rate 16 24 H Respiratory Effort Respiratory Depth Respiratory Pattern Blood Pressure 123/90 H Blood Pressure Mean 100 Blood Pressure Source Blood Pressure Position Blood Pressure Location Pulse Ox 95 98 Oxygen Delivery Method 03/16/25 13:30 03/16/25 13:30 03/16/25 13:45 Temperature Temperature Source Pulse Rate 94 Respiratory Rate 17 Respiratory Effort Respiratory Depth Respiratory Pattern Blood Pressure 123/90 H 123/90 H 131/89 H Blood Pressure Mean 100 100 100 Blood Pressure Source Blood Pressure Position Blood Pressure Location Pulse Ox 95 Oxygen Delivery Method 03/16/25 14:00 03/16/25 14:15 03/16/25 14:30 Temperature Temperature Source Pulse Rate 89 91 Respiratory Rate 23 H 23 H Respiratory Effort Respiratory Depth Respiratory Pattern Blood Pressure 132/87 H 134/85 H 137/89 H Blood Pressure Mean 100 100 104 Blood Pressure Source Blood Pressure Position Blood Pressure Location Pulse Ox 93 92 Oxygen Delivery Method 03/16/25 14:35 03/16/25 14:40 03/16/25 14:55 Temperature 98.5 F 98.5 F 98.1 F Temperature Source Oral Oral Oral Pulse Rate 92 90 97 Respiratory Rate 20 H 27 H 20 H Respiratory Effort Respiratory Depth Respiratory Pattern Blood Pressure 137/89 H 137/89 H 109/69 Blood Pressure Mean 105 105 82 Blood Pressure Source Monitor Monitor Monitor Blood Pressure Position Semi-Fowlers Semi-Fowlers Semi-Fowlers Blood Pressure Location Right Arm Right Arm Right Arm Pulse Ox 95 93 94 Oxygen Delivery Method Room Air Room Air Room Air Positive well nourished and well developed Constitutional Narrative: Patient pale appearing General Appearance ED: well developed and NAD HEENT Reports TM's clear and moist mucous membranes normocephalic and atraumatic; Negative for trauma or tenderness Tympanic Membrane ED: Yes TM's clear Eyes PERRL and EOMs intact bilaterally General Eye ED: Negative for pale conjunctiva or scleral icterus Neck no lymphadenopathy, supple and no JVD General: Negative for tenderness Chest Wall inspection of chest normal and palpation of chest normal Chest: Negative for tenderness Resp normal respiratory effort and clear to auscultation bilaterally Effort and Inspection: Negative for respiratory distress or pain with movement Auscultation: Negative for rhonchi, wheezes or diminished lung sounds Cardio regular rate, regular rhythm, S1 normal heart sound, S2 normal heart sound and no murmurs Peripheral Pulses: pulses 2+ throughout GI normal to inspection, nondistended, normoactive bowel sounds, soft to palpation,non-distended and no masses GI Narrative: Mild diffuse tenderness. There is no rebound, rigidity, peritoneal signs. No mass palpated Back/Spine no CVA tenderness and no thoracic nor lumbar tenderness Extremity normal to inspection General Extremety ED: Negative for edema General Extremity: Negative for edema Neuro oriented x3, CN's II-XII intact bilaterally, no sensory deficits noted and gait normal Sensorium / Orientation: awake, alert, oriented to person, oriented to place andoriented to time Motor Exam: strength 5/5 throughout and strength abnormal Psych mental status grossly normal Skin no rashes or lesions noted and no wounds MDM MDM MDM Narrative Medical decision making narrative: Patient presents with anemia that is symptomatic. Hemoglobin was 9 a week ago and now patient continues to be quite symptomatic. I did do a rectal exam but there was no stool in the rectal vault and the Hemoccult returned negative. IV line established. He was typed and screened. CBC with differential obtained showed white count 7.9 with hemoglobin 7.2 and platelet count of 399. Chemistries unremarkable. CT scan of abdomen pelvis obtained showed mildly distended stomach secondary to gastric pylorus circumferential wall thickening and resultant luminal narrowing concerning for obstructed gastric mass or outletobstruction. Also noted to have multiple prominent mildly enlarged retroperitoneal lymph nodes. Patient has diffuse nodularity within the anteriormesentery and bilateral paracolic gutters concerning for peritoneal carcinomatosis. Patient also has multiple sclerotic osseous lesions within the lumbar spine concerning for osseous metastasis. Case discussed with tree faller who will see patient in consultation tomorrow. I did type and cross patient for 1 unit of packed red cells. Discussed case with hospitalist to evaluate patient for admission for symptomatic anemia and concernfor malignancy with bony metastasis Lab Data Attestation: I reviewed the patient's lab results. Labs: Laboratory Results - last 24 hr 03/16/25 03/16/25 12:29 13:12 WBC 7.9 RBC 3.16 L Hgb 7.2 L Hct 24.3 L MCV 76.9 L MCH 22.8 L MCHC 29.6 L RDW Std Deviation 39.8 RDW Coeff of Katie 14.5 Plt Count 399 MPV 11.5 Immature Gran % (Auto) 0.500 Neut % (Auto) 60.3 Lymph % (Auto) 30.2 [place] % (Auto) 6.1 Eos % (Auto) 2.0 Baso % (Auto) 0.9 Absolute Neuts (auto) 4.8 Absolute Lymphs (auto) 2.38 Nucleated RBC % 0.3 Sodium 136 Potassium 3.9 Chloride 102 Carbon Dioxide 22.2 Anion Gap 12 BUN 13 Creatinine 0.83 Estim Creat Clear Calc 148.05 Est GFR (MDRD) Non-Af 107 BUN/Creatinine Ratio 15.6 Glucose 238 H Calcium 8.9 Troponin T High Sens 10 Blood Type O POSITIVE Antibody Screen NEGATIVE Crossmatch See Detail Radiography Diagnostic Testing: Clinical Impression(s) from Imaging Studies Chest X-Ray 03/16/25 12:37 IMPRESSION: No acute process Reading Location: [facility] Abdomen/Pelvis CT 03/16/25 13:10 IMPRESSION: 1. Mildly distended stomach, secondary to gastric pylorus circumferential wall thickening and resultant luminal narrowing. Findings concerning for an underlying obstructive gastric mass/outlet obstruction. Recommend further evaluation with endoscopy. 2. Multiple prominent-mildly enlarged retroperitoneal nodes. 3. Diffuse nodularity within the anterior mesentery and bilateral paracolic gutters, concerning for peritoneal carcinomatosis. 4. Multiple sclerotic osseous lesions concerning for osseous metastasis. Reading Location: [facility] 1 view chest x-ray obtained interpreted by myself as no evidence of infiltrate or pneumothorax or acute disease process. Radiology in agreement. EKG Initial EKG: Attestation: I personally reviewed and interpreted this EKG as follows: Comments: Sinus rhythm with ventricular rate of 90 bpm with no acute ST segment changes Discharge Plan Triage Chief Complaint: Palpitations Other Complaint: Shortness of Breath ED Provider: Macey Merchant Dx/Rx/DC Orders Clinical Impression: Anemia, Gastric mass, Cancer, metastatic to bone, Carcinomatosis Prescriptions: No Action atorvastatin 20 mg tablet 20 mg PO [...] symptoms) Rx Instructions: administer into each nostril amoxicillin-pot clavulanate 875-125 mg tablet 1 tab PO Q12H Qty: 14 0RF oxycodone-acetaminophen 5-325 mg tablet 1 - 2 tab PO Q6H PRN (Reason: pain) 3 Days Qty: 14 0RF Primary Care Provider: Humberto Jackson Referrals: Humberto Jackson MD [Primary Care Provider] - Print Language: Fijian Disposition Disposition: Acute Care Hospital [facility] What to do if you have Problems For any increased pain, shortness of breath, bleeding, nausea or vomiting, chestpain, or any unexpected problems, contact your Primary Care Provider. Call [facility] ([phone]) or report to the closest Emergency Room. Call 911 if necessary. 03/16/25 1623 <Electronically signed by Macey Merchant DO> Cosigner Signature (if applicable): CC: Dr. Humbreto Jackson MD ~ Signed [facility] Work Phone: [phone] [id number] History and physical note Author Tia Bergman [facility] Note Date/Time March 16, 2025 4:05p m [facility] Medical Records Department [address] [facility] [place] [address] H&P Exam - Hospitalist 03/16/25 1509 MR#: [id number] Acct: [id number] Name: BIANCA DELAROSA Rep #:[id number] : 1975 49 From: Tia Bergman DO PCP: Dr. Humberto Jackson MD Status:ADM IN Location: [facility] [place] [facility] [place] [id number] HPI - General General Date of Admission: 03/16/25 Date of Service: 03/16/25 Chief Complaint: Weakness/Dyspnea/Tachycardia HPI Narrative BIANCA DELAROSA, is a 49 M who presented to the emergency department at [facility] on 03/16/2025 with weakness, exertional dyspnea and exertional tachycardia. Patient reports that over the last 4 months or so he has had unexplained weight loss and slowly worsening generalized weakness with exertional dyspnea and exertional tachycardia. Yesterday symptoms were dramatically worse and he almost felt like he was going to pass out. He had no fever or chills. He was noted to have an anemia with a hemoglobin of 9 about a week ago with previous hemoglobin being between 14-15 12 months ago. He was scheduled have a colonoscopy later this month over at [facility]. He denies noting any black tarry stools or blood in his stool. He states that people have told him he he looks more pale than typical but he had not noticed any change. He states he has not been as hungry and has had some early satiety. Vital signs on presentation showed temperature of 98.4, heart rate 99, respiratory rate 18, blood pressure is 144/88 and pulse ox was 99% on room air. CBC shows a normal white count but he has a microcytic anemia with a hemoglobin of 7.2. Platelet count is normal. Coags were normal. Chemistry panel was unremarkable. Glucose was 238. Initial troponin was 10 and repeat was 6. EKG is sinus rhythm and shows no ST-T wave changes concerning for acute ischemia andhas normal intervals. Chest x-ray showed no acute process. CT of the abdomen pelvis was markedly abnormal with a mildly distended stomach secondary to gastric pylorus circumferential wall thickening and resultant luminal narrowing with findings concerning for underlying obstructive gastric mass or outlet obstruction, multiple prominent retroperitoneal lymph nodes and diffuse nodularity within the anterior mesentery and bilateral paracolic gutters concerning for peritoneal carcinomatosis. There were also multiple sclerotic osseous lesions that were concerning for osseous metastasis. Given his symptomatic anemia, he was given a unit of blood and the case was discussed with gastroenterology who will see the patient in consultation tomorrow for probable EGD. [facility] Medical History History of rectal abscess Multiple thyroid nodules Restrictive airway disease Abnormal chest CT Pneumonia Acute respiratory failure Shortness of breath Community acquired pneumonia Chronic headache Acute respiratory failure with hypoxia GERD (gastroesophageal reflux disease) Anxiety and depression Diabetes mellitus, type II Obesity (BMI 30-39.9) HLD (hyperlipidemia) MIKE (obstructive sleep apnea) Home Medications ?Medication ?Instructions ?Recorded ?Last Taken ?Type esomeprazole magnesium 40 mg 40 mg PO QHS gerd 8 10/19/18 History capsule,delayed release fenofibrate 50 mg capsule 54 mg PO DAILY cholesterol 0 10/10/17 10/20/18 History multivitamin 1 ea PO DAILY supplement 11/2610/20/18 History atorvastatin 20 mg tablet 20 mg PO DAILY 03/22/1810/09 History fluoxetine 40 mg capsule 60 mg PO QDAY 03/22/1810/20 History metformin 500 mg tablet 1,000 mg PO BID diabetes 10/20/18 History Fish Oil 1,000 mg Capsule 1,000 mg PO BID 10/20/1809/26 History doxepin 10 mg capsule 10 mg PO QHS 10/20/18 History olanzapine 2.5 mg tablet 2.5 mg PO QHS 10/20/1810/19 History zonisamide 25 mg capsule 25 mg PO DAILY 10/20/1810/09 History empagliflozin 25 mg tablet 25 mg PO DAILY #30 tabs Unknown Rx buspirone 15 mg tablet mg 04/14/23 Unknown History duloxetine 60 mg capsule,delayed mg PO 04/14/23 Unknow n History release fluticasone propionate 50 1 spray intranasal DAILY PRN 04/14/23 Unknown History mcg/actuation nasal allergic symptoms spray,suspension insulin lispro protamine-lispro subcut 04/14/23 Unknow n History 100 unit/mL (75-25) subcutaneous pen methylphenidate HCl 10 mg biphasic mg PO 04/14/23 Unkn own History 50-50 capsule,extended release amoxicillin 875 mg-potassium 1 tab PO Q12H #14 tabs Unknown Rx clavulanate 125 mg tablet oxycodone-acetaminophen 5 mg-325 1 - 2 tab PO Q6H PRN pain 3 days 03/10/24 Unknown Rx mg tablet #14 tabs Allergy/AdvReac Type Severity Reaction Status Date / Time citalopram Allergy Unknown Unknown Verified 03/16/25 12:07 venlafaxine Allergy Unknown Unknown Verified 03/16/25 12:07 metoclopramide (From Reglan) Allergy weirds me Verified 03/16/25 12:07 out sertraline (From Zoloft) Allergy sexual Verified 03/16/25 12:07 side effects topiramate (From Topamax) Allergy Unknown Verified 03/16/25 12:07 Family History Father Colon cancer at age 53 Heart disease Myocardial infarction Surgical History Hx of drainage of abscess (~04/2023) Hx of appendectomy Hx of tonsillectomy Social History (Updated 03/16/25 @ 15:[address] 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 Smoking Status: Never smoker second hand exposure: No alcohol intake: never substance use type: does not use caffeine: Yes what type of physical activity do you participate in: none frequency: does not exercise seatbelt use: always ROS Constitutional Constitutional: Reports anorexia, change in weight, fatigue, malaise and weakness; Denies chills, fever(s), night sweats or other Eyes Eyes: Denies blurry vision, change in eye color, change in vision, discharge from eye(s), double vision, erythema, eye pain, loss of vision or other ENT HEENT: Denies abnormal hearing, dysphagia, ear pain, epistaxis, headache(s), hearing loss, nasal congestion, nasal discharge, post nasal drip, sinus pressure, sore throat or other Cardiovascular Cardiovascular: Reports dyspnea on exertion; Denies chest pain, claudication, edema, lightheadedness, orthopnea, palpitations, paroxysmal nocturnal dyspnea, rapid heart rate, syncope or other Respiratory/Chest Respiratory/Chest: Reports dyspnea and shortness of breath with exertion; Deniescough, excessive phlegm production, hemoptysis, productive cough, shortness of breath at rest, wheezing or other Gastrointestinal Gastrointestinal: Reports dyspepsia, nausea and vomiting; Denies abdominal pain,coffee ground emesis, constipation, diarrhea, hematemesis, hematochezia, loose stools, melena or other Genitourinary Genitourinary: Denies burning urination, difficulty urinating, dysuria, hematuria, nocturia, urinary frequency, urinary hesitancy, urinary incontinence,urinary urgency or other Musculoskeletal Musculoskeletal: Denies arthralgias, back pain, joint pain, joint stiffness, joint swelling, myalgias, neck pain or other Neurologic Neurologic: Denies abnormal gait, abnormal speech, confusion, disequilibrium, dizziness, focal weakness, headache(s), numbness, paresthesias, seizure-like activity, seizures, syncope, tingling, tremor(s) or other Psychiatric Psychiatric: Denies anxiety, depression, homicidal ideation, suicidal ideation or other Endocrine Endocrinology: Denies change in body appearance, cold intolerance, excessive sweating, heat intolerance, polydipsia, polyuria or other Hematologic/Lymphatic Hematologic/Lymphatic: Denies anemia, easy bleeding, easy bruising, lymphadenopathy or other Allergic/Immunologic Allergic/Immunologic: Denies rhinitis, hives, eczemia, asthma or other Vital Signs Vital Signs Vital Signs: 03/16/25 12:07 03/16/25 12:07 03/16/25 12:20 Temperature 98.4 F Temperature Source Oral Pulse Rate 99 Respiratory Rate 18 Respiratory Effort Normal Non-Labored Respiratory Depth Normal Respiratory Pattern Normal Blood Pressure 146/88 H Blood Pressure Mean 107 Blood Pressure Source Blood Pressure Position Blood Pressure Location Pulse Ox 99 Oxygen Delivery Method Room Air Room Air Room Air 03/16/25 13:07 03/16/25 13:15 03/16/25 13:30 Temperature Temperature Source Pulse Rate 98 96 Respiratory Rate 16 24 H Respiratory Effort Respiratory Depth Respiratory Pattern Blood Pressure 123/90 H Blood Pressure Mean 100 Blood Pressure Source Blood Pressure Position Blood Pressure Location Pulse Ox 95 98 Oxygen Delivery Method 03/16/25 13:30 03/16/25 13:30 03/16/25 13:45 Temperature Temperature Source Pulse Rate 94 Respiratory Rate 17 Respiratory Effort Respiratory Depth Respiratory Pattern Blood Pressure 123/90 H 123/90 H 131/89 H Blood Pressure Mean 100 100 100 Blood Pressure Source Blood Pressure Position Blood Pressure Location Pulse Ox 95 Oxygen Delivery Method 03/16/25 14:00 03/16/25 14:15 03/16/25 14:30 Temperature Temperature Source Pulse Rate 89 91 Respiratory Rate 23 H 23 H Respiratory Effort Respiratory Depth Respiratory Pattern Blood Pressure 132/87 H 134/85 H 137/89 H Blood Pressure Mean 100 100 104 Blood Pressure Source Blood Pressure Position Blood Pressure Location Pulse Ox 93 92 Oxygen Delivery Method 03/16/25 14:35 03/16/25 14:40 03/16/25 14:55 Temperature 98.5 F 98.5 F 98.1 F Temperature Source Oral Oral Oral Pulse Rate 92 90 97 Respiratory Rate 20 H 27 H 20 H Respiratory Effort Respiratory Depth Respiratory Pattern Blood Pressure 137/89 H 137/89 H 109/69 Blood Pressure Mean 105 105 82 Blood Pressure Source Monitor Monitor Monitor Blood Pressure Position Semi-Fowlers Semi-Fowlers Semi-Fowlers Blood Pressure Location Right Arm Right Arm Right Arm Pulse Ox 95 93 94 Oxygen Delivery Method Room Air Room Air Room Air Weight Weight: 122.47 kg Body Mass Index (BMI) 34.7 Physical Exam Const alert, oriented x3 and no apparent distress; Negative for average body habitus Constitutional Narrative: Very pleasant, obese, white male, sitting up in bed, at bedside, patient appears comfortable, does not appear toxic General Appearance: cooperative HEENT normocephalic, head/scalp atraumatic, hearing grossly normal bilaterally and moist oral mucous membranes Eyes Eyes Narrative: Significant conjunctiva pallor bilaterally, no scleral icterus Neck supple Neck Narrative: Neck is short and thick but trachea is midline Resp normal respiratory effort, no retractions, no use of accessory muscles and clearto auscultation bilaterally Auscultation: Negative for rales, rhonchi or wheezes Cardio regular rhythm, S1 normal heart sound, S2 normal heart sound, no murmurs, no rub, no gallops and no clicks Cardio Narrative: Mild sinus tachycardia GI normal to inspection, nondistended, normoactive bowel sounds, soft to palpation and non-tender Extremity no clubbing, cyanosis or edema Extremity Narrative: Pedal and radial pulses are 2+ Skin skin turgor normal, no jaundice, no petechiae and no mottling Skin Narrative: Skin is relatively pale Neuro oriented x3, moves all extremities and no focal motor deficits Speech: speech normal Psych affect normal Psych Narrative: Extremely pleasant, eye contact is good and patient interacts appropriately Results Lab / Micro Data 03/16/25 12:29 03/16/25 12:29 Labs: Laboratory Results - last 24 hr 03/16/25 12:29: WBC 7.9, RBC 3.16 L, Hgb 7.2 L, Hct 24.3 L, MCV 76.9 L, MCH 22.8L, MCHC 29.6 L, RDW Std Deviation 39.8, RDW Coeff of Katie 14.5, Plt Count 399, MPV 11.5, Immature Gran % (Auto) 0.500, Neut % (Auto) 60.3, Lymph % (Auto) 30.2,[place] % (Auto) 6.1, Eos % (Auto) 2.0, Baso % (Auto) 0.9, Absolute Neuts (auto) 4.8, Absolute Lymphs (auto) 2.38, Nucleated RBC % 0.3, Sodium 136, Potassium 3.9, Chloride 102, Carbon Dioxide 22.2, Anion Gap 12, BUN 13, Creatinine 0.83, Estim Creat Clear Calc 148.05, Est GFR (MDRD) Non-Af 107, BUN/Creatinine Ratio 15.6, Glucose 238 H, Calcium 8.9, Troponin T High Sens 10 03/16/25 13:12: Blood Type O POSITIVE, Antibody Screen NEGATIVE, Crossmatch See Detail 03/16/25 14:37: Troponin T Hi Sens 2 Hr 6 Micro: Microbiology 03/16/25 13:16 Stool Stool Occult Blood (YASMINE) - Final Imaging Radiology Impression Chest X-Ray 03/16/25 12:37 IMPRESSION: No acute process Reading [facility] Abdomen/Pelvis CT 03/16/25 13:10 IMPRESSION: 1. Mildly distended stomach, secondary to gastric pylorus circumferential wall thickening and resultant luminal narrowing. Findings concerning for an underlying obstructive gastric mass/outlet obstruction. Recommend further evaluation with endoscopy. 2. Multiple prominent-mildly enlarged retroperitoneal nodes. 3. Diffuse nodularity within the anterior mesentery and bilateral paracolic gutters, concerning for peritoneal carcinomatosis. 4. Multiple sclerotic osseous lesions concerning for osseous metastasis. Reading Location: [facility] Assessment & Plan Assessment/Plan (1) Gastric mass: (2) Symptomatic anemia: (3) Weight loss: (4) Microcytic anemia: PLAN: Plan Severe microcytic anemia - CT of the abdomen and pelvis shows gastric outlet obstruction with probable mass and metastatic disease - Start Protonix drip - Suspect anemia is from the mass bleeding - Cycle hemoglobin every 6 hours - Transfuse 1 unit packed red blood cells since patient is so symptomatic - Will give IV iron since iron studies are indicative of severe iron deficiency - Full liquid diet for now with supplements given weight loss and n.p.o. after midnight - Consult gastroenterology-Case was discussed with Dr. Martinez by the emergency department - Anticipate EGD tomorrow Suspected upper GI bleed secondary to gastric pyloric mass - Protonix drip as noted - GI consultation for anticipated EGD tomorrow Gastric mass - Appears to have significant metastatic disease including carcinomatosis and bony mets on CT of the abdomen pelvis - Will need biopsy for identification to drive treatment and then outpatient follow-up with oncology and possibly cardiothoracic surgery/general surgery Severe malnutrition with severe weight loss - Patient with dramatic weight loss over the last couple months that was unintentional - Likely related to early satiety - Full liquid diet for now with supplements as ordered - Consult dietitian for ongoing recommendations GERD - Hold home PPI - IV Protonix drip for now MIKE - Last recommendations for CPAP was 15 cmH2O - CPAP ordered - Patient okay to bring in a home unit if able DM-2 - Hold home oral agents - High-dose SSI for now - Patient is hyperglycemic on admission and may need basal insulin but will obtain trends first - Check hemoglobin A1c -Accu-Cheks as ordered Hyperlipidemia - Continue home atorvastatin - Continue home fenofibrate Depression/anxiety/ADHD - Hold home methylphenidate - Continue home duloxetine - Continue home doxepin - Continue home BuSpar - Continue home olanzapine DVT prophylaxis - SCDs - Chemoprophylaxis on hold due to GI bleed CODE STATUS - Full code Charges/Coding Visit Charges Inpatient E&M: 25279 Init Hosp L2 03/16/25 6638 <Electronically signed by Tia Bergman DO> Cosigner Signature (if applicable): CC: Dr. Humberto Jackson MD; Dr. Tia Bergman, DO~ Signed [facility] Work Phone: 1(771) 941-342006-08-2025 Evaluation note* Diagnosis Onset Date Resolution Status Admit Date Anemia acute March 16, 2025 2:55pm Cancer, metastatic to bone acute March 16, 2025 2:55pm Carcinomatosis acute March 16, 2025 2:55pm Gastric cancer acute March 16, 2025 2:55pm Gastric mass acute March 16 2:55pm Microcytic anemia acute March 2:55pm Symptomatic anemia acute March 162024 2:55pm Weight loss acute March 16 2:55pm [facility] Work Phone: [phone]) 778-931306-08-2025 Evaluation note* Diagnosis Onset Date Resolution Status Admit Date Anemia acute March 16, 2025 2:55pm Carcinomatosis acute March 16, 2025 2:55pm Gastric cancer acute March 16, 2025 2:55pm Gastric mass acute March 16 2:55pm Microcytic anemia acute March 2:55pm Symptomatic anemia acute March 162024 2:55pm Weight loss acute March 16 2:55pm Cancer, metastatic to bone deleted March 16, 2025 2:55pm Gastric cancer acute March 27, 2025 3:21pm Lung nodule acute March 27 3:21pm Metastasis to bone acute March 092024 3:21pm 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 acute March 27, 2025 3:21pm [facility] Work Phone: [phone]) 957-328706-08-2025 Evaluation note* Diagnosis Onset Date Resolution Status Admit Date Gastric cancer acute March 16, 2025 2:55pm Microcytic anemia acute March 2:55pm Anemia inactive March 16, 2025 2:55pm Carcinomatosis inactive March 16, 2025 2:55pm Gastric mass inactive March 16 2:55pm Symptomatic anemia inactive March 162024 2:55pm Weight loss inactive March 16 2:55pm Cancer, metastatic to bone deleted March 16, 2025 2:55pm Gastric cancer acute March 27, 2025 3:21pm Lung nodule acute March 27 3:21pm Metastasis to bone acute March 092024 3:21pm 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 acute March 27, 2025 3:21pm [facility] Work Phone: [phone]) 433-521906-08-2025 Evaluation note* Diagnosis Onset Date Resolution Status Admit Date Gastric cancer acute March 16, 2025 2:55pm Microcytic anemia acute March 2:55pm Anemia inactive March 16, 2025 2:55pm Carcinomatosis inactive March 16, 2025 2:55pm Gastric mass inactive March 16 2:55pm Symptomatic anemia inactive March 162024 2:55pm Weight loss inactive March 16 2:55pm Cancer, metastatic to bone deleted March 16, 2025 2:55pm Gastric cancer acute March 27, 2025 3:21pm Lung nodule acute March 27 3:21pm Metastasis to bone acute March 092024 3:21pm 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 acute March 27, 2025 3:21pm Encounter for insertion of venous access port acute April 07 1:42pm Gastric cancer acute April 07, 2025 1:42pm Metastasis to bone acute March 112024 1:42pm 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 acute April 07, 2025 1:42pm [facility] Work Phone: 1([phone] 699-315006-08-2025 Discharge summary [facility] Medical Records Department [address] [place] [address] Emergency Department Summary 03/16/25 MR#: [id number] Acct: [id number] Name: BIANCA DELAROSA Rep #:[id number] : 1975 49 From: Macey Merchant DO PCP: Dr. Humberto Jackson MD Status:ADM IN Location: [place] [address] HPI History of Present Illness Chief Complaint: Palpitations Detail of Chief Complaint: Weakness, dyspnea, racing heart Informant: patient Narrative Narrative: Patient presents the emergency department complaint of not feeling well for overa week and a half. Patient states that he saw primary care physician who did some blood work and noted that he was anemic with hemoglobin of 9 over a week ago. Patient was scheduled to have a colonoscopy later this month. He was started on iron. He continues to not feel well. Complains of feeling lightheaded and dizzywith standing and heart racing. Denies blood in his stoolor black tarry stool. Patient states he has not had a good bowel movement in 3 days and he attributes that to the iron. He denies fevers chills or sweats. Isacchasean had about an 18 pound weight loss in the last month because he is just not been eating as much and is cut his portion sizes. There is a family history of colon cancer. [facility] Medical History History of rectal abscess Multiple thyroid nodules Restrictive airway disease Abnormal chest CT Pneumonia Acute respiratory failure Shortness of breath Community acquired pneumonia Chronic headache Acute respiratory failure with hypoxia GERD (gastroesophageal reflux disease) Anxiety and depression Diabetes mellitus, type II Obesity (BMI 30-39.9) HLD (hyperlipidemia) MIKE (obstructive sleep apnea) Home Medications ?Medication ?Instructions ?Recorded ?Last Taken ?Type esomeprazole magnesium 40 mg 40 mg PO QHS gerd 8 10/19/18 History capsule,delayed release fenofibrate 50 mg capsule 54 mg PO DAILY cholesterol 0 10/10/17 10/20/18 History multivitamin 1 ea PO DAILY supplement 11/2610/20/18 History atorvastatin 20 mg tablet 20 mg PO DAILY 03/22/1810/09 History fluoxetine 40 mg capsule 60 mg PO QDAY 03/22/1810/20 History metformin 500 mg tablet 1,000 mg PO BID diabetes 10/20/18 History Fish Oil 1,000 mg Capsule 1,000 mg PO BID 10/20/1809/26 History doxepin 10 mg capsule 10 mg PO QHS 10/20/18 History olanzapine 2.5 mg tablet 2.5 mg PO QHS 10/20/1810/19 History zonisamide 25 mg capsule 25 mg PO DAILY 10/20/1810/09 History empagliflozin 25 mg tablet 25 mg PO DAILY #30 tabs Unknown Rx buspirone 15 mg tablet mg 04/14/23 Unknown History duloxetine 60 mg capsule,delayed mg PO 04/14/23 Unknow n History release fluticasone propionate 50 1 spray intranasal DAILY PRN 04/14/23 Unknown History mcg/actuation nasal allergic symptoms spray,suspension insulin lispro protamine-lispro subcut 04/14/23 Unknow n History 100 unit/mL (75-25) subcutaneous pen methylphenidate HCl 10 mg biphasic mg PO 04/14/23 Unkn own History 50-50 capsule,extended release amoxicillin 875 mg-potassium 1 tab PO Q12H #14 tabs Unknown Rx clavulanate 125 mg tablet oxycodone-acetaminophen 5 mg-325 1 - 2 tab PO Q6H PRN pain 3 days 03/10/24 Unknown Rx mg tablet #14 tabs Allergy/AdvReac Type Severity Reaction Status Date / Time citalopram Allergy Unknown Unknown Verified 03/16/25 12:07 venlafaxine Allergy Unknown Unknown Verified 03/16/25 12:07 metoclopramide (From Reglan) Allergy weirds me Verified 03/16/25 12:07 out sertraline (From Zoloft) Allergy sexual Verified 03/16/25 12:07 side effects topiramate (From Topamax) Allergy Unknown Verified 03/16/25 12:07 Family History Father Colon cancer at age 53 Heart disease Myocardial infarction Surgical History Hx of drainage of abscess (~04/2023) Hx of appendectomy Hx of tonsillectomy Social History Smoking Status: Never smoker second hand exposure: No alcohol intake: never substance use type: does not use caffeine: Yes what type of physical activity do you participate in: none frequency: does not exercise seatbelt use: always ROS ROS ED Review of Systems ROS Unobtainable: other Constitutional Constitutional ED: Reports lethargy; Denies chills, fever(s), sweats or weight loss Eyes Eyes: Denies blurry vision, change in vision or diplopia ENT ENT ED: Denies rhinorrhea or sore throat Cardiovascular Cardiovascular: Reports chest pain and racing heartbeat; Denies orthopnea Respiratory/Chest Respiratory/Chest: Denies cough, dyspnea, dyspnea on exertion, orthopnea or sputum Gastrointestinal Gastrointestinal: Reports abdominal pain; Denies diarrhea, nausea or vomiting Genitourinary Genitourinary ED: Denies dysuria, hematuria or urinary frequency Musculoskeletal Musculoskeletal: Denies arthralgias, back pain, myalgias or neck pain Integumentary Denies abscess, Abrasions or rash Neurologic Neurologic: Reports weakness and other Details: Lightheadedness ; Denies headache(s) Psychiatric Psychiatric: Denies anxiety, depression or suicidal thoughts Endocrine Endocrinology: Denies polydipsia, polyphagia or polyuria Hematologic/Lymphatic Hematologic/Lymphatic: Denies easy bleeding, easy bruising or lymphadenopathy Allergic/Immunologic Allergic/Immunologic ED: Denies mouth swelling, tongue swelling or urticaria EXAM Physical Exam Const Vital Signs: 03/16/25 12:07 03/16/25 12:07 03/16/25 12:20 Temperature 98.4 F Temperature Source Oral Pulse Rate 99 Respiratory Rate 18 Respiratory Effort Normal Non-Labored Respiratory Depth Normal Respiratory Pattern Normal Blood Pressure 146/88 H Blood Pressure Mean 107 Blood Pressure Source Blood Pressure Position Blood Pressure Location Pulse Ox 99 Oxygen Delivery Method Room Air Room Air Room Air 03/16/25 13:07 03/16/25 13:15 03/16/25 13:30 Temperature Temperature Source Pulse Rate 98 96 Respiratory Rate 16 24 H Respiratory Effort Respiratory Depth Respiratory Pattern Blood Pressure 123/90 H Blood Pressure Mean 100 Blood Pressure Source Blood Pressure Position Blood Pressure Location Pulse Ox 95 98 Oxygen Delivery Method 03/16/25 13:30 03/16/25 13:30 03/16/25 13:45 Temperature Temperature Source Pulse Rate 94 Respiratory Rate 17 Respiratory Effort Respiratory Depth Respiratory Pattern Blood Pressure 123/90 H 123/90 H 131/89 H Blood Pressure Mean 100 100 100 Blood Pressure Source Blood Pressure Position Blood Pressure Location Pulse Ox 95 Oxygen Delivery Method 03/16/25 14:00 03/16/25 14:15 03/16/25 14:30 Temperature Temperature Source Pulse Rate 89 91 Respiratory Rate 23 H 23 H Respiratory Effort Respiratory Depth Respiratory Pattern Blood Pressure 132/87 H 134/85 H 137/89 H Blood Pressure Mean 100 100 104 Blood Pressure Source Blood Pressure Position Blood Pressure Location Pulse Ox 93 92 Oxygen Delivery Method 03/16/25 14:35 03/16/25 14:40 03/16/25 14:55 Temperature 98.5 F 98.5 F 98.1 F Temperature Source Oral Oral Oral Pulse Rate 92 90 97 Respiratory Rate 20 H 27 H 20 H Respiratory Effort Respiratory Depth Respiratory Pattern Blood Pressure 137/89 H 137/89 H 109/69 Blood Pressure Mean 105 105 82 Blood Pressure Source Monitor Monitor Monitor Blood Pressure Position Semi-Fowlers Semi-Fowlers Semi-Fowlers Blood Pressure Location Right Arm Right Arm Right Arm Pulse Ox 95 93 94 Oxygen Delivery Method Room Air Room Air Room Air Positive well nourished and well developed Constitutional Narrative: Patient pale appearing General Appearance ED: well developed and NAD HEENT Reports TM's clear and moist mucous membranes normocephalic and atraumatic; Negative for trauma or tenderness Tympanic Membrane ED: Yes TM's clear Eyes PERRL and EOMs intact bilaterally General Eye ED: Negative for pale conjunctiva or scleral icterus Neck no lymphadenopathy, supple and no JVD General: Negative for tenderness Chest Wall inspection of chest normal and palpation of chest normal Chest: Negative for tenderness Resp normal respiratory effort and clear to auscultation bilaterally Effort and Inspection: Negative for respiratory distress or pain with movement Auscultation: Negative for rhonchi, wheezes or diminished lung sounds Cardio regular rate, regular rhythm, S1 normal heart sound, S2 normal heart sound and no murmurs Peripheral Pulses: pulses 2+ throughout GI normal to inspection, nondistended, normoactive bowel sounds, soft to palpation,non-distended and no masses GI Narrative: Mild diffuse tenderness. There is no rebound, rigidity, peritoneal signs. No mass palpated Back/Spine no CVA tenderness and no thoracic nor lumbar tenderness Extremity normal to inspection General Extremety ED: Negative for edema General Extremity: Negative for edema Neuro oriented x3, CN's II-XII intact bilaterally, no sensory deficits noted and gait normal Sensorium / Orientation: awake, alert, oriented to person, oriented to place andoriented to time Motor Exam: strength 5/5 throughout and strength abnormal Psych mental status grossly normal Skin no rashes or lesions noted and no wounds MDM MDM MDM Narrative Medical decision making narrative: Patient presents with anemia that is symptomatic. Hemoglobin was 9 a week ago and now patient continues to be quite symptomatic. I did do a rectal exam but there was no stool in the rectal vault and the Hemoccult returned negative. IV line established. He was typed and screened. CBC with differential obtained showed white count 7.9 with hemoglobin 7.2 and platelet count of 399. Chemistries unremarkable. CT scan of abdomen pelvis obtained showed mildly distended stomach secondary to gastric pylorus circumferential wall thickening and resultant luminal narrowing concerning for obstructed gastric mass or outletobstruction. Also noted to have multiple prominent mildly enlarged retroperitoneal lymph nodes. Patient has diffuse nodularity within the anteriormesentery and bilateral paracolic gutters concerning for peritoneal carcinomatosis. Patient also has multiple sclerotic osseous lesions within the lumbar spine concerning for osseous metastasis. Case discussed with tree faller who will see patient in consultation tomorrow. I did type and cross patient for 1 unit of packed red cells. Discussed case with hospitalist to evaluate patient for admission for symptomatic anemia and concernfor malignancy with bony metastasis Lab Data Attestation: I reviewed the patient's lab results. Labs: Laboratory Results - last 24 hr 03/16/25 03/16/25 12:29 13:12 WBC 7.9 RBC 3.16 L Hgb 7.2 L Hct 24.3 L MCV 76.9 L MCH 22.8 L MCHC 29.6 L RDW Std Deviation 39.8 RDW Coeff of Katie 14.5 Plt Count 399 MPV 11.5 Immature Gran % (Auto) 0.500 Neut % (Auto) 60.3 Lymph % (Auto) 30.2 [place] % (Auto) 6.1 Eos % (Auto) 2.0 Baso % (Auto) 0.9 Absolute Neuts (auto) 4.8 Absolute Lymphs (auto) 2.38 Nucleated RBC % 0.3 Sodium 136 Potassium 3.9 Chloride 102 Carbon Dioxide 22.2 Anion Gap 12 BUN 13 Creatinine 0.83 Estim Creat Clear Calc 148.05 Est GFR (MDRD) Non-Af 107 BUN/Creatinine Ratio 15.6 Glucose 238 H Calcium 8.9 Troponin T High Sens 10 Blood Type O POSITIVE Antibody Screen NEGATIVE Crossmatch See Detail Radiography Diagnostic Testing: Clinical Impression(s) from Imaging Studies Chest X-Ray 03/16/25 12:37 IMPRESSION: No acute process Reading [facility] Abdomen/Pelvis CT 03/16/25 13:10 IMPRESSION: 1. Mildly distended stomach, secondary to gastric pylorus circumferential wall thickening and resultant luminal narrowing. Findings concerning for an underlying obstructive gastric mass/outlet obstruction. Recommend further evaluation with endoscopy. 2. Multiple prominent-mildly enlarged retroperitoneal nodes. 3. Diffuse nodularity within the anterior mesentery and bilateral paracolic gutters, concerning forperitoneal carcinomatosis. 4. Multiple sclerotic osseous lesions concerning for osseous metastasis. Reading Location: [facility] 1 view chest x-ray obtained interpreted by myself as no evidence of infiltrate or pneumothorax or acute disease process. Radiology in agreement. EKG Initial EKG: Attestation: I personally reviewed and interpreted this EKG as follows: Comments: Sinus rhythm with ventricular rate of 90 bpm with no acute ST segment changes Discharge Plan Triage Chief Complaint: Palpitations Other Complaint: Shortness of Breath ED Provider: Macey Merchant Dx/Rx/DC Orders Clinical Impression: Anemia, Gastric mass, Cancer, metastatic to bone, Carcinomatosis Prescriptions: No Action atorvastatin 20 mg tablet 20 mg PO [...] symptoms) Rx Instructions: administer into each nostril amoxicillin-pot clavulanate 875-125 mg tablet 1 tab PO Q12H Qty: 14 0RF oxycodone-acetaminophen 5-325 mg tablet 1 - 2 tab PO Q6H PRN (Reason: pain) 3 Days Qty: 14 0RF Primary Care Provider: Humberto Jackson Referrals: Humberto Jackson MD [Primary Care Provider] - Print Language: Fijian Disposition Disposition: Acute Care Hospital [facility] What to do if you have Problems For any increased pain, shortness of breath, bleeding, nausea or vomiting, chestpain, or any unexpected problems, contact your Primary Care Provider. Call [facility] ([phone]) or report tothe closest Emergency Room. Call 911 if necessary. 03/16/25 3063 Cosigner Signature (if applicable): CC: Dr. Humberto Jackson MD ~ Signed [facility]06-08-2025 History and physical note [facility] Medical Records Department [address] [place] [address] H&P Exam - Hospitalist 03/16/25 1509 MR#: [id number] Acct: [id number] Name: BIANCA DELAROSA Rep #:[id number] : 1975 49 From: Tia Bergman DO PCP: Dr. Humberto Jackson MD Status:ADM IN Location: [facility] [place] [facility] [place] [id number] HPI - General General Date of Admission: 03/16/25 Date of Service: 03/16/25 Chief Complaint: Weakness/Dyspnea/Tachycardia HPI Narrative BIANCA DELAROSA, is a 49 M who presented to the emergency department at [facility] on 03/16/2025 with weakness, exertional dyspnea and exertional tachycardia. Patient reports that over the last 4 months or so he has had unexplained weight loss and slowly worsening generalized weaknesswith exertional dyspnea and exertional tachycardia. Yesterday symptoms were dramatically worse and he almost felt like he was going to pass out. He had no fever or chills. He was noted to have an anemia with a hemoglobin of 9 about a week ago with previous hemoglobin being between 14-15 12 months ago. He was scheduled have a colonoscopy later this month over at [facility]. He denies noting any black tarry stools or blood in his stool. He states that people have told him he he looks more pale than typical but he had not noticed any change. He states he has not been as hungry and has had some early satiety. Vital signs on presentation showed temperature of 98.4, heart rate 99, respiratory rate 18, blood pressure is 144/88 and pulse ox was 99% on room air. CBC shows a normal white count but he has a microcytic anemia with a hemoglobin of 7.2. Platelet count is normal. Coags were normal. Chemistry panel was unremarkable. Glucose was 238. Initial troponin was 10 and repeat was 6. EKG is sinus rhythm and shows no ST-T wave changes concerning for acute ischemia andhas normal intervals. Chest x-ray showed no acute process. CT of the abdomen pelvis was markedly abnormal with a mildly distended stomach secondary to gastric pylorus circumferential wall thickening and resultant luminal narrowing with findings concerning for underlying obstructive gastric mass or outlet obstruction, multiple prominent retroperitoneal lymph nodes and diffuse nodularity within the anterior mesentery and bilateral paracolic gutters concerning for peritoneal carcinomatosis. There were also multiple sclerotic osseous lesions that were concerning for osseous metastasis. Given his symptomatic anemia, he was given a unit of blood and the case was discussed with gastroenterology who will see the patient in consultation tomorrow for probable EGD. [facility] Medical History History of rectal abscess Multiple thyroid nodules Restrictive airway disease Abnormal chest CT Pneumonia Acute respiratory failure Shortness of breath Community acquired pneumonia Chronic headache Acute respiratory failure with hypoxia GERD (gastroesophageal reflux disease) Anxiety and depression Diabetes mellitus, type II Obesity (BMI 30-39.9) HLD (hyperlipidemia) MIKE (obstructive sleep apnea) Home Medications ?Medication ?Instructions ?Recorded ?Last Taken ?Type esomeprazole magnesium 40 mg 40 mg PO QHS gerd 8 10/19/18 History capsule,delayed release fenofibrate 50 mg capsule 54 mg PO DAILY cholesterol 0 10/10/17 10/20/18 History multivitamin 1 ea PO DAILY supplement 11/2610/20/18 History atorvastatin 20 mg tablet 20 mg PO DAILY 03/22/1810/09 History fluoxetine 40 mg capsule 60 mg PO QDAY 03/22/1810/20 History metformin 500 mg tablet 1,000 mg PO BID diabetes 10/20/18 History Fish Oil 1,000 mg Capsule 1,000 mg PO BID 10/20/1809/26 History doxepin 10 mg capsule 10 mg PO QHS 10/20/18 History olanzapine 2.5 mg tablet 2.5 mg PO QHS 10/20/1810/19 History zonisamide 25 mg capsule 25 mg PO DAILY 10/20/1810/09 History empagliflozin 25 mg tablet 25 mg PO DAILY #30 tabs Unknown Rx buspirone 15 mg tablet mg 04/14/23 Unknown History duloxetine 60 mg capsule,delayed mg PO 04/14/23 Unknow n History release fluticasone propionate 50 1 spray intranasal DAILY PRN 04/14/23 Unknown History mcg/actuation nasal allergic symptoms spray,suspension insulin lispro protamine-lispro subcut 04/14/23 Unknow n History 100 unit/mL (75-25) subcutaneous pen methylphenidate HCl 10 mg biphasic mg PO 04/14/23 Unkn own History 50-50 capsule,extended release amoxicillin 875 mg-potassium 1 tab PO Q12H #14 tabs Unknown Rx clavulanate 125 mg tablet oxycodone-acetaminophen 5 mg-325 1 - 2 tab PO Q6H PRN pain 3 days 03/10/24 Unknown Rx mg tablet #14 tabs Allergy/AdvReac Type Severity Reaction Status Date / Time citalopram Allergy Unknown Unknown Verified 03/16/25 12:07 venlafaxine Allergy Unknown Unknown Verified 03/16/25 12:07 metoclopramide (From Reglan) Allergy weirds me Verified 03/16/25 12:07 out sertraline (From Zoloft) Allergy sexual Verified 03/16/25 12:07 side effects topiramate (From Topamax) Allergy Unknown Verified 03/16/25 12:07 Family History Father Colon cancer at age 53 Heart disease Myocardial infarction Surgical History Hx of drainage of abscess (~04/2023) Hx of appendectomy Hx of tonsillectomy Social History (Updated 03/16/25 @ 15:[address] 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 Smoking Status: Never smoker second hand exposure: No alcohol intake: never substance use type: does not use caffeine: Yes what type of physical activity do you participate in: none frequency: does not exercise seatbelt use: always ROS Constitutional Constitutional: Reports anorexia, change in weight, fatigue, malaise and weakness; Denies chills, fever(s), night sweats or other Eyes Eyes: Denies blurry vision, change in eye color, change in vision, discharge from eye(s), double vision, erythema, eye pain, loss of vision or other ENT HEENT: Denies abnormal hearing, dysphagia, ear pain, epistaxis, headache(s), hearing loss, nasal congestion, nasal discharge, post nasal drip, sinus pressure, sore throat or other Cardiovascular Cardiovascular: Reports dyspnea on exertion; Denies chest pain, claudication, edema, lightheadedness, orthopnea, palpitations, paroxysmal nocturnal dyspnea, rapid heart rate, syncope or other Respiratory/Chest Respiratory/Chest: Reports dyspnea and shortness of breath with exertion; Deniescough, excessive phlegm production, hemoptysis, productive cough, shortness of breath at rest, wheezing or other Gastrointestinal Gastrointestinal: Reports dyspepsia, nausea and vomiting; Denies abdominal pain,coffee ground emesis, constipation, diarrhea, hematemesis, hematochezia, loose stools, melena or other Genitourinary Genitourinary: Denies burning urination, difficulty urinating, dysuria, hematuria, nocturia, urinary frequency, urinary hesitancy, urinary incontinence,urinary urgency or other Musculoskeletal Musculoskeletal: Denies arthralgias, back pain, joint pain, joint stiffness, joint swelling, myalgias, neck pain or other Neurologic Neurologic: Denies abnormal gait, abnormal speech, confusion, disequilibrium, dizziness, focal weakness, headache(s), numbness, paresthesias, seizure-like activity, seizures, syncope, tingling, tremor(s) or other Psychiatric Psychiatric: Denies anxiety, depression, homicidal ideation, suicidal ideation or other Endocrine Endocrinology: Denies change in body appearance, cold intolerance, excessive sweating, heat intolerance, polydipsia, polyuria or other Hematologic/Lymphatic Hematologic/Lymphatic: Denies anemia, easy bleeding, easy bruising, lymphadenopathy or other Allergic/Immunologic Allergic/Immunologic: Denies rhinitis, hives, eczemia, asthma or other Vital Signs Vital Signs Vital Signs: 03/16/25 12:07 03/16/25 12:07 03/16/25 12:20 Temperature 98.4 F Temperature Source Oral Pulse Rate 99 Respiratory Rate 18 Respiratory Effort Normal Non-Labored Respiratory Depth Normal Respiratory Pattern Normal Blood Pressure 146/88 H Blood Pressure Mean 107 Blood Pressure Source Blood Pressure Position Blood Pressure Location Pulse Ox 99 Oxygen Delivery Method Room Air Room Air Room Air 03/16/25 13:07 03/16/25 13:15 03/16/25 13:30 Temperature Temperature Source Pulse Rate 98 96 Respiratory Rate 16 24 H Respiratory Effort Respiratory Depth Respiratory Pattern Blood Pressure 123/90 H Blood Pressure Mean 100 Blood Pressure Source Blood Pressure Position Blood Pressure Location Pulse Ox 95 98 Oxygen Delivery Method 03/16/25 13:30 03/16/25 13:30 03/16/25 13:45 Temperature Temperature Source Pulse Rate 94 Respiratory Rate 17 Respiratory Effort Respiratory Depth Respiratory Pattern Blood Pressure 123/90 H 123/90 H 131/89 H Blood Pressure Mean 100 100 100 Blood Pressure Source Blood Pressure Position Blood Pressure Location Pulse Ox 95 Oxygen Delivery Method 03/16/25 14:00 03/16/25 14:15 03/16/25 14:30 Temperature Temperature Source Pulse Rate 89 91 Respiratory Rate 23 H 23 H Respiratory Effort Respiratory Depth Respiratory Pattern Blood Pressure 132/87 H 134/85 H 137/89 H Blood Pressure Mean 100 100 104 Blood Pressure Source Blood Pressure Position Blood Pressure Location Pulse Ox 93 92 Oxygen Delivery Method 03/16/25 14:35 03/16/25 14:40 03/16/25 14:55 Temperature 98.5 F 98.5 F 98.1 F Temperature Source Oral Oral Oral Pulse Rate 92 90 97 Respiratory Rate 20 H 27 H 20 H Respiratory Effort Respiratory Depth Respiratory Pattern Blood Pressure 137/89 H 137/89 H 109/69 Blood Pressure Mean 105 105 82 Blood Pressure Source Monitor Monitor Monitor Blood Pressure Position Semi-Fowlers Semi-Fowlers Semi-Fowlers Blood Pressure Location Right Arm Right Arm Right Arm Pulse Ox 95 93 94 Oxygen Delivery Method Room Air Room Air Room Air Weight Weight: 122.47 kg Body Mass Index (BMI) 34.7 Physical Exam Const alert, oriented x3 and no apparent distress; Negative for average body habitus Constitutional Narrative: Very pleasant, obese, white male, sitting up in bed, at bedside, patient appears comfortable, does not appear toxic General Appearance: cooperative HEENT normocephalic, head/scalp atraumatic, hearing grossly normal bilaterally and moist oral mucous membranes Eyes Eyes Narrative: Significant conjunctiva pallor bilaterally, no scleral icterus Neck supple Neck Narrative: Neck is short and thick but trachea is midline Resp normal respiratory effort, no retractions, no use of accessory muscles and clearto auscultation bilaterally Auscultation: Negative for rales, rhonchi or wheezes Cardio regular rhythm, S1 normal heart sound, S2 normal heart sound, no murmurs, no rub, no gallops and noclicks Cardio Narrative: Mild sinus tachycardia GI normal to inspection, nondistended, normoactive bowel sounds, soft to palpation and non-tender Extremity no clubbing, cyanosis or edema Extremity Narrative: Pedal and radial pulses are 2+ Skin skin turgor normal, no jaundice, no petechiae and no mottling Skin Narrative: Skin is relatively pale Neuro oriented x3, moves all extremities and no focal motor deficits Speech: speech normal Psych affect normal Psych Narrative: Extremely pleasant, eye contact is good and patient interacts appropriately Results Lab / Micro Data 03/16/25 12:29 03/16/25 12:29 Labs: Laboratory Results - last 24 hr 03/16/25 12:29: WBC 7.9, RBC 3.16 L, Hgb 7.2 L, Hct 24.3 L, MCV 76.9 L, MCH 22.8L, MCHC 29.6 L, RDWStd Deviation 39.8, RDW Coeff of Katie 14.5, Plt Count 399, MPV 11.5, Immature Gran % (Auto) 0.500, Neut % (Auto) 60.3, Lymph % (Auto) 30.2,[place] % (Auto) 6.1, Eos % (Auto) 2.0, Baso % (Auto) 0.9, Absolute Neuts (auto) 4.8, Absolute Lymphs (auto) 2.38, Nucleated RBC % 0.3, Sodium 136, Potassium 3.9, Chloride 102, Carbon Dioxide 22.2, Anion Gap 12, BUN 13, Creatinine 0.83, Estim Creat Clear Calc 148.05, Est GFR (MDRD) Non-Af 107, BUN/Creatinine Ratio 15.6, Glucose 238 H, Calcium 8.9, Troponin T High Sens 10 03/16/25 13:12: Blood Type O POSITIVE, Antibody Screen NEGATIVE, Crossmatch See Detail 03/16/25 14:37: Troponin T Hi Sens 2 Hr 6 Micro: Microbiology 03/16/25 13:16 Stool Stool Occult Blood (YASMINE) - Final Imaging Radiology Impression Chest X-Ray 03/16/25 12:37 IMPRESSION: No acute process Reading [facility] Abdomen/Pelvis CT 03/16/25 13:10 IMPRESSION: 1. Mildly distended stomach, secondary to gastric pylorus circumferential wall thickening and resultant luminal narrowing. Findings concerning for an underlying obstructive gastric mass/outlet obstruction. Recommend further evaluation with endoscopy. 2. Multiple prominent-mildly enlarged retroperitoneal nodes. 3. Diffuse nodularity within the anterior mesentery and bilateral paracolic gutters, concerning forperitoneal carcinomatosis. 4. Multiple sclerotic osseous lesions concerning for osseous metastasis. Reading Location: [facility] Assessment & Plan Assessment/Plan (1) Gastric mass: (2) Symptomatic anemia: (3) Weight loss: (4) Microcytic anemia: PLAN: Plan Severe microcytic anemia - CT of the abdomen and pelvis shows gastric outlet obstruction with probable mass and metastatic disease - Start Protonix drip - Suspect anemia is from the mass bleeding - Cycle hemoglobin every 6 hours - Transfuse 1 unit packed red blood cells since patient is so symptomatic - Will give IV iron since iron studies are indicative of severe iron deficiency - Full liquid diet for now with supplements given weight loss and n.p.o. after midnight - Consult gastroenterology-Case was discussed with Dr. Martinez by the emergency department - Anticipate EGD tomorrow Suspected upper GI bleed secondary to gastric pyloric mass - Protonix drip as noted - GI consultation for anticipated EGD tomorrow Gastric mass - Appears to have significant metastatic disease including carcinomatosis and bony mets on CT of the abdomen pelvis - Will need biopsy for identification to drive treatment and then outpatient follow-up with oncology and possibly cardiothoracic surgery/general surgery Severe malnutrition with severe weight loss - Patient with dramatic weight loss over the last couple months that was unintentional - Likely related to early satiety - Full liquid diet for now with supplements as ordered - Consult dietitian for ongoing recommendations GERD - Hold home PPI - IV Protonix drip for now MIKE - Last recommendations for CPAP was 15 cmH2O - CPAP ordered - Patient okay to bring in a home unit if able DM-2 - Hold home oral agents - High-dose SSI for now - Patient is hyperglycemic on admission and may need basal insulin but will obtain trends first - Check hemoglobin A1c -Accu-Cheks as ordered Hyperlipidemia - Continue home atorvastatin - Continue home fenofibrate Depression/anxiety/ADHD - Hold home methylphenidate - Continue home duloxetine - Continue home doxepin - Continue home BuSpar - Continue home olanzapine DVT prophylaxis - SCDs - Chemoprophylaxis on hold due to GI bleed CODE STATUS - Full code Charges/Coding Visit Charges Inpatient E&M: 29409 Init Hosp L2 03/16/25 1605 Cosigner Signature (if applicable): CC: Dr. Humberto Jackson MD; Dr. Tia Bergman DO~ Signed [facility]06-08-2025 Radiology Diagnostic study note [facility] Imaging Services [address] [place] [address] Abdomen/Pelvis W IV Cont ONLY MR#: [id number] Acct: [id number] Name: BIANCA DELAROSA Rep #: [id number] : 1975 M 49 From: Ramona Connolly MD PCP: Dr. Humberto Jackson MD Status: REG ER Study:Abdomen/Pelvis W IV Cont ONLY Date of E xam: 03/16/25 Exam# [id number] Ordering Dr: Sepideh Merchant DO PROCEDURE: ABDOMEN/PELVIS W IV CONT ONLY 03/16/2025 REASON FOR EXAM: ABDOMINAL PAIN, ANEMIA, WEIGHT LOSS TECHNIQUE: Abdomen and pelvis CT with intravenous contrast. Coronal and Sagittal reconstruction series were provided. PATIENT PREPARATION: Per protocol ORAL CONTRAST TYPE: None. AMOUNT: mL CONTRAST: Omnipaque 350 VOLUME: 100 mL One or more dose reduction techniques were used (e.g., Automated exposure control, adjustment of the mA and/or kV according to patient size, use of iterative reconstruction technique. COMPARISON: None FINDINGS: Lung bases: 4 mm right lower lobe nodule (series 2, image 2). Liver: Diffuse steatosis. No focal lesion. Gallbladder: No ductal dilation. Gallbladder is collapsed. Spleen: No splenomegaly. Pancreas: Normal size without evidence of mass surrounding inflammation or ductal dilation. Adrenals: Unremarkable. Kidneys: Normal renal sizes. No hydronephrosis. Mild bilateral nonspecific perinephric soft tissue stranding. Bladder: Urinary bladder is unremarkable. Reproductive Organs: No pelvic mass. Bowel: Moderately distended stomach. There is circumferential wall thickening of the pylorus (series 601, image 60, series 2 image 38) with resultant luminal narrowing. Small bowel and colonic loops are otherwise nondistended. Moderate colonic stool. Colonic diverticulosis without diverticulitis. Appendix: Status post appendectomy. Lymph nodes: 18 mm lymph node above the greater omentum (series 2 image 22). A few other prominent/mildly enlarged retroperitoneal lymph nodes also noted. Vasculature: Mild diffuse atherosclerotic calcifications are noted. Peritoneum / Retroperitoneum: Trace ascites. Diffuse nodularity and stranding along the along the mesenteric, predominantly in the right upper quadrant and bilateral paracolic gutters. No pneumoperitoneum. Bones: There are innumerable small sclerotic lesions scattered throughout the lumbosacral spine, bilateral femoral head and neck and pubic bones.. Soft tissue: Small fat containing umbilical hernia. CT/Abdomen/Pelvis W IV Cont ONLY IMPRESSION: 1. Mildly distended stomach, secondary to gastric pylorus circumferential wall thickening and resultant luminal narrowing. Findings concerning for an underlying obstructive gastric mass/outlet obstruction. Recommend further evaluation with endoscopy. 2. Multiple prominent-mildly enlarged retroperitoneal nodes. 3. Diffuse nodularity within the anterior mesentery and bilateral paracolic gutters, concerning forperitoneal carcinomatosis. 4. Multiple sclerotic osseous lesions concerning for osseous metastasis. Reading Location: [facility] CC: Dr. Humberto Jackson MD; Dr. Macey Merchant DO ~ Drill Setup Operator: Signed [facility]06-08-2025 Radiology Diagnostic study note [facility] Imaging Services [address], [place] [address] Chest 1 View (Portable) MR#: [id number] Acct: [id number] Name: BIANCA DELAROSA Rep #: [id number] : 1975 M 49 From: Pet er Peer DO PCP: Dr. Humberto Jackson MD Status: REG ER Study:Chest 1 View (Portable) Date of Exam: 03/16/25 Exam# [id number] Ordering Dr: Sepideh Merchant DO PROCEDURE: CHEST 1 VIEW (PORTABLE) 03/16/2025 REASON FOR EXAM: CHEST PAIN Palpitations, dizziness and shortness of breath TECHNIQUE: Frontal view of the chest. COMPARISON: CT chest 12/31/2018 FINDINGS: Hardware: EKG lead wires Heart: Normal size Lungs: Clear Bones: Unremarkable Other: RAD/Chest 1 View (Portable) IMPRESSION: No acute process Reading Location: [facility]- CC: Dr. Humberto Jackson MD; Dr. Macey Merchant DO ~ Drill Setup Operator: Signed [facility]06-02-2025 Telephone encounter Note* Telephone Encounter - Ezra Stein LPN - 03/10/2025 12:57 PM EDT Patient notified of results and provider's instructions. Patient verbalizes understanding. Ezra Stein LPN [facility]06-02-2025 Miscellaneous Notes* Telephone Encounter - Ezra Stein LPN - 03/10/2025 12:57 PM EDT Patient notified of results and provider's instructions. Patient verbalizes understanding. Ezra Stein LPN * Telephone Encounter - Kenyatta Castaneda PA-C - 03/10/2025 12:30 PM EDT Start iron supplement. I will send in. But also needs the further work up we discussed to see if any blood loss from colon. Repeat labs in 1-2 weeks to trend levels to make sure not worsening. Kenyatta Castaneda PA-C * Telephone Encounter - Lois Alberts LPN - 03/10/2025 9:22 AM EDT Pt is calling for lab results. Pt [...] High Lois Alberts LPN documented in this encounterAdams [facility]06-[facility]-2025 Telephone encounter Note * Telephone Encounter - Ezra Stein LPN - 03/10/2025 12:56 PM EDT Pt notified of results and instructions. Pt verbalizes understanding./ Ezra Stein LPN [facility]06-02-2025 Miscellaneous Notes* Telephone Encounter - Ezra Stein LPN - 03/10/2025 12:56 PM EDT Pt notified of results and instructions. Pt verbalizes understanding./ Ezra Stein LPN * Telephone Encounter - Kenyatta Castaneda PA-C - 03/10/2025 12:50 PM EDT Let patient know his b12 is also borderline low. Start OTC b12 1000mcg daily. documented in this encounterAdams County [facility] Center06-02-2025 Telephone encounter Note * Telephone Encounter - Kenyatta Castaneda PA-C - 03/10/2025 12:50 PM EDT Let patient know his b12 is also borderline low. Start OTC b12 1000mcg daily. [facility]06-02-2025 Telephone encounter Note* Telephone Encounter - Kenyatta Castaneda PA-C - 03/10/2025 12:30 PM EDT Start iron supplement. I will send in. But also needs the further work up we discussed to see if any blood loss from colon. Repeat labs in 1-2 weeks to trend levels to make sure not worsening. Kenyatta Castaneda PA-C [facility]06-02-2025 Telephone encounter Note* Telephone Encounter - Lois Alberts LPN - 03/10/2025 9:22 AM EDT Pt is calling for lab results. Pt [...] (L) Low (H) High Lois Alberts LPN [facility]06-02-2025 History of Present illness Narrative* Nelda Quigley APRN.MULTIPLE COIL WINDER - 03/10/2025 8:30 AM EDT HISTORY AND PHYSICAL Bianca Delarosa : 1975 REFERRING PHYSICIAN: Kenyatta Castaneda [address] [facility] [address] CHIEF COMPLAINT: Patient presents with: low hgb: Low Hgb. SOB easy. Easily fatigued. PCP wants colonoscopy HPI: Bianca is a 49 year old male referred for endoscopy. Bianca notes anemia. Last H&H 9.6 &31.6. Bianca notes abdominal pain. -over the last [...] GERD and dysphasia with Dr. Bowman at [facility] on 04/04- she does not complete [...] colonoscopy was 08/[address] Bliss at [facility]. Sedation: Midazolam 7 mg IV, Fentanyl [...] 1 capsule by mouth once daily for 30days. DULoxetine (CYMBALTA) 60 mg capsule Take 1 capsule by mouth once daily. albuterol HFA (PROVENTIL HFA, VENTOLIN HFA) 90 mcg/actuation inhaler Inhale 2 Puffs as instructed three times a day. OLANZapine (ZYPREXA) 5 mg tablet Take 1 tablet by mouth daily at bedtime. DULoxetine (CYMBALTA) 30 mg capsule Take 1 capsule by mouth once daily. Blood-Glucose Sensor (FREESTYLE DIANA 3 SENSOR) agnes USE ONE SENSOR EVERY [...] mL for a 90 day supply. Insulin Carpio, Disposable, (DROPLET PEN NEEDLE) 31 gauge x [...] Analogues],Reglan [Metoclopramide Hcl], and Zoloft [Sertraline Hcl] PAST MEDICAL HISTORY Diagnosis Date Abnormal finding on MRI of brain 12/11/2024 Possible pituitary adenoma. Acute hypoxemic respiratory failure due to COVID-19 ([facility]) 09/24/2023 Agitation 03/31/2014 Allergic rhinitis 03/31/2014 Allergy-induced asthma ([facility]) 03/31/2014 Mild intermitant Attention deficit disorder (ADD) [...] Primary insomnia 07/28/2020 QT prolongation 04/20/2021 Seen [facility] 04/19/2021: [place] to be benign and related to anti- [...] head and 2 from neck TONSILLECTOMY HX 1978 FAMILY HISTORY Problem Relation Age of Onset [...] denies vomiting, denies black or tarry stools, denieshemorrhoids, denies bleeding from rectum, + diverticulitis, denies [...] are equally round, sclera are anicteric, mucous membranesare moist, oropharynx is clear. Neck has no [...] Will plan for lower endoscopy. We discussed therisks and benefits of the planned endoscopy in terms understandable to the patient. I have informedthe patient that complications can occur including failure [...] wishes. I have explained that with IV conscioussedation there is no anesthesia provider available and [...] Anemia, unspecified type Consultation requested by Kenyatta Casatneda PA-C for an opinion regarding anemia. My [...] edited and updated as necessary. Nelda Quigley APRN.MULTIP[employer] COIL WINDER documented in this encounterAdams County [facility]06-02-2025 NoteC[facility] Telephone encounter Note* Telephone Encounter - Ezra Stein LPN - 03/07/2025 1:20 PM EDT Pt notified of Kenyatta's message. Pt verbalizes understanding. Pt states he is ok not having the procedures on the same day. Pt was assisted in transfer to schedule surgical consult. Ezra Stein LPN [facility]05-30-2025 Miscellaneous Notes* Telephone Encounter - Ezra Stein LPN - 03/07/2025 1:20 PM EDT Pt notified of Kenyatta's message. Pt verbalizes understanding. Pt states he is ok not having the procedures on the same day. Pt was assisted in transfer to schedule surgical consult. Ezra Stein LPN * Telephone Encounter - Kenyatta Castaneda PA-C - 03/07/2025 12:54 PM EDT I reached out to Dr. Bowman, she no longer does colonoscopies, but I think he should get one. I also still want him to see her for the EGD. But I will add a consult to [facility] surgery specific for colonoscopy. I'm not sure if it's possible for Dr. Bowman's office to coordinate a colonoscopy to be done during the same visit as her EGD. He may want to go to [facility] to see if this is possible though. Thanks. Kenyatta Castaneda PA-C * Telephone Encounter - Juhi Murillo RN - 03/07/2025 12:24 PM EDT Patient notified of results and provider's instructions. Patient verbalizes understanding. Patient does have EGD scheduled on 03/27/2025. Patient does not have a colonoscopy scheduled. Last Colonoscopy done 08/30/2022. Juhi Murillo RN * Telephone Encounter - Tam Daugherty MA - 03/07/2025 12:11 PM EDT Left message for patient to contact office. Tam Daugherty MA * Telephone Encounter - Kenyatta Castaneda PA-C - 03/07/2025 8:45 AM EDT Let patient know that he is anemic. This is possibly contributing to his symptoms. Need additional labs and need to see gen surgery for anemia work up. Is he currently scheduled for EGD? Colonoscopy too? Kenyatta Castaneda PA-C documented [place] encounterMatthew [place]ille [address]-30-2025 Telephone encounter Note * Telephone Encounter - Kenyatta Castaneda PA-C - 03/07/2025 12:54 PM EDT I reached out to Dr. Bowman, she [...] EGD. He may want to go to [facility] to see if this is possible though. Thanks. Kenyatta Castaneda PA-C [facility]05-30-2025 Telephone encounter Note* Telephone Encounter - Juhi Murillo RN - 03/07/2025 12:24 PM EDT Patient notified of results and provider's instructions. Patient verbalizes understanding. Patient does have EGD scheduled on 03/27/2025. Patient does not have a colonoscopy scheduled. Last Colonoscopy done 08/30/2022. Juhi Murillo RN [facility]05-30-2025 Telephone encounter Note* Telephone Encounter - Tam Daugherty MA - 03/07/2025 12:11 PM EDT Left message for patient to contact office. Tam Daugherty MA [facility]05-30-2025 Telephone encounter Note* Telephone Encounter - Kenyatta Castaneda PA-C - 03/07/2025 8:45 AM EDT Let patient know that he is anemic. This is possibly contributing to his symptoms. Need additional labs and need to see gen surgery for anemia work up. Is he currently scheduled for EGD? Colonoscopy too? Kenyatta Castaneda PA-C [facility]05-29-2025 Instructions* Patient Instructions* Kenyatta Castaneda PA-C - 03/06/2025 7:41 AM EDT - Hold off on your ADHD medication (Focalin) for 5-7 days and note whether your dizziness improves.If it does, do not restart and discuss [...] Holter monitor) for two weeks: call the [facility] to confirm your insurance coverage, apply the patch per their instructions, and mail it back when prompted. Notify our office if you encounter any insurance issues. - Monitor your heart rate and dizziness closely. After you ve stopped Focalin and completed the tests above, let us know whether your symptoms have improved so we can determine next steps. documented in this encounterAdams County [facility] Center05-29-2025 NoteC[facility]05-29-[facility] History of Present illness Narrative* Kenyatta Castaneda PA- C - 03/06/2025 7:13 AM EDT Chief Complaint Patient presents with: Dizziness: X [...] Primary insomnia 07/28/2020 QT prolongation 04/20/2021 Seen [facility] 04/19/2021: [place] to be benign and related to anti- [...] 1 capsule by mouth once daily for 30days. DULoxetine (CYMBALTA) 60 mg capsule Take 1 capsule by mouth once daily. albuterol HFA (PROVENTIL HFA, VENTOLIN HFA) 90 mcg/actuation inhaler Inhale 2 Puffs as instructed three times a day. OLANZapine (ZYPREXA) 5 mg tablet Take 1 tablet by mouth daily at bedtime. DULoxetine (CYMBALTA) 30 mg capsule Take 1 capsule by mouth once daily. Blood-Glucose Sensor (FREESTYLE DIANA 3 SENSOR) agnes USE ONE SENSOR EVERY [...] mL for a 90 day supply. Insulin Carpio, Disposable, (DROPLET PEN NEEDLE) 31 gauge x [...] tests to rule out dehydration, electrolyte imbalances, andanemia. - Ordered echocardiogram and carotid ultrasound to assess cardiac function and blood flow. - Ordered Zio patch Holter monitor for continuous cardiac rhythm monitoring for two weeks. - Discussed the possibility of a tilt table test if symptoms persist. - Advised patient to discontinue Focalin for a few days to a week to assess if symptoms improve. Ifsymptoms resolve, further testing may not be necessary. If symptoms persist, patient may resume Focalin and continue with ordered tests. - Patient understands and agrees with the plan. Kenyatta Castaneda PA-C Recording using [employer] software for draft documentation of the visit was discussed with the patient/authorized sales service representative; all questions welcomed and answered. Patient/authorized sales service representative agreed to proceed documented in this encounterAdams County [facility]05-19-2025 NoteC[facility]05-19-[facility] History of Present illness Narrative* Vikash Booth MD - 02/24/2025 7:25 AM EDT Images from the original note were not included. ORTHOPAEDIC SHOULDER & ELBOW SERVICE HISTORY & PHYSICAL EXAM REFERRING PROVIDER: Elizabeth Suárez [address] [facility] [address] CHIEF COMPLAINT: Bianca is a 49-year-old male presenting for evaluation of right shoulder pain and limited range of motion. 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 methylphenidate CD (METADATE CD) 20 mg biphasic [...] by mouth once daily. Blood-Glucose Sensor (FREESTYLE DIANA 3 SENSOR) agnes USE ONE SENSOR EVERY [...] mL for a 90 day supply. Insulin Carpio, Disposable, (DROPLET PEN NEEDLE) 31 gauge x [...] records to better understand the current condition aswell as underlying risk factors, reviewed medical imaging, assessed appropriateness of available nonsurgical and surgical treatments. Vikash Booth MD Shoulder & Elbow Surgeon Department of Orthopaedic Surgery [facility] documented in this encounterAdams County [facility] Center05-13-2025 Telephone encounter Note * Telephone Encounter - Janel Dumont RN - 02/18/2025 1:56 PM EDT Images from the original note were not included. Most recent Endocrinology visit: Last encounter Visit on 02/06/2025 (with Jana Babcock) HIMA: 01/17/24--with Torres for diabetes NOV: 04/30/25-with Torres for diabetes 07/07/2023 in [facility] with TORRES MONACO for Type 2 diabetes mellitus without complication, without long-term current use of insulin ([facility]) 10/18/2023 in [facility] with TORRES MONACO for Type 2 diabetes mellitus without complication, without long-term current use of insulin ([facility]) 01/17/2024 in [facility] with TORRES MONACO for Type 2 diabetes mellitus without complication, without long-term current use of insulin ([facility]) 02/06/2025 in [facility] with JANA BABCOCK for Upcoming Endocrinology Appointments - Next 365 Days Visit Type Date Time Department EST LIZ PATIENT 04/30/2025 11:30 AM [facility] Requested Prescriptions Pending Prescriptions Disp Refills metFORMIN [...] Prolactin 4.1 - 25.1 ng/mL 39.1 41.2 [facility]05-13-2025 Miscellaneous Notes* Telephone Encounter - Janel Dumont RN - 02/18/2025 1:56 PM EDT Images from the original note were not included. Most recent Endocrinology visit: Last encounter Visit on 02/06/2025 (with Jana Babcock) HIMA: 01/17/24--with Torres for diabetes NOV: 04/30/25-with Torres for diabetes 07/07/2023 in [facility] with KUPDEQUANC, TORRES for Type 2 diabetes mellitus without complication, without long-term current use of insulin (H[facility]) 10/18/2023 in [facility] with BRENDAC, TORRES for Type 2 diabetes mellitus without complication, without long-term current use of insulin (HCC) 01/17/2024 in [facility] with BRENDAC, TORRES for Type 2 diabetes mellitus without complication, without long-term current use of insulin (HCC) 02/06/2025 in [facility] with JANA BABCOCK for Upcoming Endocrinology Appointments - Next 365 Days Visit Type Date Time Department EST LIZ PATIENT 04/30/2025 11:30 AM [facility] Requested Prescriptions Pending Prescriptions Disp Refills metFORMIN [...] 25.1 ng/mL 39.1 41.2 documented in this encounterAdams County [facility] Center05-07-2025 Telephone encounter Note * Telephone Encounter - Judi Harvey - 02/12/2025 9:54 AM EDT Insurance Verification Insurance Company: [employer] Provider Phone #: [phone] Agent: Nitesh Effective Date: 10/09/20 Call Reference #: [id number] EXCLUDED [facility]05-07-2025 Miscellaneous Notes* Telephone Encounter - Judi Harvey - 02/12/2025 9:54 AM EDT Insurance Verification Insurance Company: [employer] Provider Phone #: [phone] Agent: Nitesh Effective Date: 10/09/20 Call Reference #: [id number] EXCLUDED documented in this encounterAdams County [facility] Center05-01-2025 Telephone encounter Note * Telephone Encounter - Humberto Jackson MD - 02/06/2025 8:40 PM EDT The following approved medication requests have been transmitted electronically. Requested Prescriptions Signed Prescriptions Disp Refills dexmethylphenidate XR (FOCALIN XR) 20 mg biphasic capsule 30 capsule 0 Sig: Take 1 capsule by mouth once daily for 30 days. Humberto Jackson MD PDMP website checked and validated. All prescriptions have been APPROPRIATELY filled. No suspiciousactivity was identified. 02/06/2025 by Humberto Jackson MD [facility]05-01-2025 Miscellaneous Notes* Telephone Encounter - Humberto Jackson MD - 02/06/2025 8:40 PM EDT The following approved medication requests have been transmitted electronically. Requested Prescriptions Signed Prescriptions Disp Refills dexmethylphenidate XR (FOCALIN XR) 20 mg biphasic capsule 30 capsule 0 Sig: Take 1 capsule by mouth once daily for 30 days. Humberto Jackson MD PDMP website checked and validated. All prescriptions have been APPROPRIATELY filled. No suspiciousactivity was identified. 02/06/2025 by Humberto Jackson MD * Telephone Encounter - Tia Ibarra MA - 02/06/2025 7:47 PM EDT See [employer] message. Tia Ibarra MA documented in this encounterAdams County [facility] Center05-01-2025 Telephone encounter Note * Telephone Encounter - Tia Ibarra MA - 02/06/2025 7:47 PM EDT See [employer] message. Tia Ibarra MA [facility]05-01-2025 [facility]05-01-[facility] History of Present illness Narrative* Jana Babcock MD - 02/06/2025 2:22 PM EDT Images from the original note were not included. Endocrinology/Initial Pituitary Assessment Note: Patient is being evaluated today via a Virtual Visit using a HIPPA compliant platform, zoom via [employer]. It required patient-provider interaction for the medical decision making as documented below. Patient consented to treatment I have communicated my name and active licensure. The patient's identity and physical location wereverified at the time of this visit. Either the patient or their legal sales service representative has been informed of the risks and benefits of -- and alternatives to -- treatment through a remote evaluation andconsents to proceed with the evaluation remotely. History [...] an enlarged pituitary gland. The patient was referredto neurosurgery for consultation, and a follow-up MRI was performed in June. However, surgicalintervention was not recommended at that time. A [...] abdomen:No,difficulty raising arms overhead, difficulty getting up froma seated position:No Previous Pituitary Surgery: No Previous [...] Agitation 03/31/2014 Allergic rhinitis 03/31/2014 Allergy-induced asthma ([facility]) 03/31/2014 Mild intermitant Attention deficit disorder (ADD) [...] Primary insomnia 07/28/2020 QT prolongation 04/20/2021 Seen [facility] 04/19/2021: [place] to be benign and related to anti- [...] by mouth once daily. Blood-Glucose Sensor (FREESTYLE DIANA 3 SENSOR) agnes USE ONE SENSOR EVERY [...] mL for a 90 day supply. Insulin Carpio, Disposable, (DROPLET PEN NEEDLE) 31 gauge x [...] OF EXAM: Dec 11 2024 10:59AM [facility] 0295 - MRI BRAIN WO/W [...] reflect an underlying lesion/adenoma or pituitary hyperplasia. Drill Setup Operator: GORGE Transcribe Date/Time: Dec 11 2024 11:13A [...] evidenced by a pituitary height of more than9 mm may be observed during puberty, , [...] (tuberculosis) and neoplastic (germinoma, lymphoma, leukaemia, metastatic car cinoma) disorders. A pituitary biopsy facilitating a tissue diagnosis remains elusive in routine clinical practice, the diagnosis of pituitary hypertrophy is largely [id number]. Thus, pituitary enlargement (pituitary height >=9?mm, or [...] to make your follow up visit. Call [facility] Appointments [phone] to make follow up Endocrinology visit in 6 month. Once you have your visit scheduled, please either call OR send me a [employer] message and I will place the orders that you will need to have done PRIOR to your appointment in 1 year. All the patient`s questions were answered. The patient expressed understanding of all the information relayed and has agreed to this plan. I spent a total of 60 minutes on the date of the service which included preparing to see the patient, [id number] patient care, completing clinical documentation, obtaining and/or reviewing separately obtained history, performing a medically appropriate examination, counseling and educating the pat ient/family/caregiver, ordering medications, tests, or procedures, communicating with other HCPs (not separately reported), independently interpreting results (not separately reported), communicatingresults to the patient/family/caregiver and care coordination (not separately reported). SIGNATURE: Jana Babcock MD DATE of SERVICE: February 06, 2025 TIME of SERVICE: 2:22 PM documented in this encounterAdams County Regional Medical Center05-01-2025 NoteHNO ID: [id number] Author: CIRO FARMER RN Service: ? Author Type: Nurse Clinician Type: Progress Notes Filed: 02/06/2025 08:59 Note Text: Patient given written information about manometry, EGD and Patino pH probe and the prep instructions. Verbally discussed and reviewed the information with the patient. All of patient's questions were answered. Ciro Farmer [facility]05-01-2025 History of Present illness Narrative* Ciro Farmre RN - 02/06/2025 8:58 AM EDT Patient given written information about manometry, EGD and Patino pH probe and the prep instructions. Verbally discussed and reviewed the information with the patient. All of patient's questions were answered. Ciro Farmer RN * Jenn Bowman MD - 02/06/2025 8:02 AM EDT SURGICAL SERVICES HISTORY AND PHYSICAL EXAMINATION SERVICE DATE: 02/06/2025 SERVICE TIME: 8:02 AM PRIMARY CARE PHYSICIAN: Humberto Jackson MD SUBJECTIVE CHIEF COMPLAINT: heartburn HISTORY OF PRESENT ILLNESS: Mr. 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 Blood-Glucose Sensor (FREESTYLE DIANA 3 SENSOR) agnes USE ONE SENSOR EVERY [...] mL for a 90 day supply. Insulin Carpio, Disposable, (DROPLET PEN NEEDLE) 31 gauge x [...] heartburn and vomiting (regurgitation). Negative for abdominal pain,blood in stool, constipation, diarrhea and nausea. Genitourinary: [...] Decision Making Level: 4 - Moderate SIGNATURE: Jenn Bowman MD PATIENT NAME: Bianca Delarosa DATE: February 06, 2025 TIME: 8:02 AM PAGER/CONTACT #: [phone] * Sally Baird MA - 02/06/2025 7:53 AM EDT Patient states he has a lot of sharp, burning pain. He will have reflux up into his mouth when he lays down, increased belching. Last egd was over 10 years ago. Sally Baird MA documented in this encounterAdams County Regional Medical Center05-01-2025 Note* Addendum Note - Luly Raphael LPN - 02/06/2025 8:44 AM EDTAddended by: LULY RAPHAEL on: 02/06/2025 08:44 AM Modules accepted: Orders [facility] Work Phone: [phone] Miscellaneous Notes* Addendum Note - Luly Raphael LPN - 02/06/2025 8:44 AM EDTAddended by: LULY RAPHAEL on: 02/06/2025 08:44 AM Modules accepted: Orders documented in this encounterAdams County Regional Medical Center05-01-2025 NoteHNO ID: [id number] Author: JENN BOWMAN MD Service: ? Author Type: Physician [...] Primary insomnia 07/28/2020 QT prolongation 04/20/2021 Seen [facility] 04/19/2021: [place] to be benign and related to anti-depressants. [...] Topics Alcohol use: Yes (more content not included)...[facility]05-01-2025 NoteHNO ID: [id number] Author: SALLY BAIRD MA Service: ? Author Type: Helicopter Technician Type: Progress Notes Filed: 02/06/2025 08:33 Note Text: Patient states he has a lot of sharp, burning pain. He will have reflux up into his mouth when he lays down, increased belching. Last egd was over 10 years ago. Sally Baird, [facility]04-15-[facility] Instructions* Patient Instructions* Humberto Jackson MD - 01/21/2025 11:41 AM EDT Remember to do the non-fasting lab work for anemia on or after 01/30/2025 documented in this encounterAdams County Regional Medical Center04-15-2025 History of Present illness Narrative* Humberto Jackson MD - 01/21/2025 11:20 AM EDT Chief Complaint Patient presents with: [...] on had a URI, fevers and chills. [place] ok yesterday but feeling winded with activity. [...] Primary insomnia 07/28/2020 QT prolongation 04/20/2021 Seen [facility] 04/19/2021: [place] to be benign and related to anti- [...] daily for 30 days. Blood-Glucose Sensor (FREESTYLE DIANA 3 SENSOR) agnes USE ONE SENSOR EVERY [...] mL for a 90 day supply. Insulin Carpio, Disposable, (DROPLET PEN NEEDLE) 31 gauge x [...] Resp 16 Wt 129.7 kg (286 lb) ZbV068% BMI 36.72 kg/m Last 5 Encounter Wt [...] cont current meds. - consult heartburn center [facility]: Dr. Bowman 3. Belching - ICD9: [...] routine. Humberto Jackson MD documented in this encounterAdams County Regional Medical Center04-15-2025 NoteCleveland [facility]04-04-[facility] Telephone encounter Note* Telephone Encounter - Janel Dumont RN - 01/10/2025 3:51 PM EDT Images from the original note were not included. Received a fax from [facility]. Most recent Endocrinology visit: Last encounter Visit on 01/17/2024 (with Torres Monaco) HIMA: 01/17/24 NOV: does not have one scheduled 01/27/2023 in [facility] with TORRES MONACO for Type 2 diabetes mellitus without complication, without long-term current use of insulin (HCC) 07/07/2023 in [facility] with TORRES MONACO for Type 2 diabetes mellitus without complication, without long-term current use of insulin (HCC) 10/18/2023 in [facility] with TORRES MONACO for Type 2 diabetes mellitus without complication, without long-term current use of insulin (HCC) 01/17/2024 in [facility] with TORRES MONACO for Type 2 diabetes mellitus without complication, without long-term current use of insulin (HCC) Upcoming Endocrinology Appointments - Next 365 Days [...] Prolactin Prolactin 4.1 - 25.1 ng/mL 41.2 [facility]04-04-2025 Miscellaneous Notes* Telephone Encounter - Janel Dumont RN - 01/10/2025 3:51 PM EDT Images from the original note were not included. Received a fax from [facility]. Most recent Endocrinology visit: Last encounter Visit on 01/17/2024 (with Torres Monaco) HIMA: 01/17/24 NOV: does not have one scheduled 01/27/2023 in [facility] with TORRES MONACO for Type 2 diabetes mellitus without complication, without long-term current use of insulin ([facility]) 07/07/2023 in [facility] with TORRES MONACO for Type 2 diabetes mellitus without complication, without long-term current use of insulin ([facility]) 10/18/2023 in [facility] with TORRES MONACO for Type 2 diabetes mellitus without complication, without long-term current use of insulin ([facility]) 01/17/2024 in [facility] with TORRES MONACO for Type 2 diabetes mellitus without complication, without long-term current use of insulin ([facility]) Upcoming Endocrinology Appointments - Next 365 Days [...] - 25.1 ng/mL 41.2 documented in this encounterAdams County Regional Medical Center04-04-2025 Telephone encounter Note * Telephone Encounter - Tam Daugherty MA - 01/10/2025 11:08 AM EDT Please assist patient with referral to Ortho. Tam Daugherty MA [facility]04-04-2025 Miscellaneous Notes* Telephone Encounter - Tam Daugherty MA - 01/10/2025 11:08 AM EDT Please assist patient with referral to Ortho. Tam Daugherty MA * Telephone Encounter - Elizabeth Suárez MD - 01/10/2025 8:16 AM EDT Referral order placed. Please assist with scheduling. Continue exercises given by PT along with OTCanalgesics, ice/heat PRN. * Telephone Encounter - Dimple Castellon LPN - 01/09/2025 1:22 PM EDT Patient notified of results, verbalizes understanding of instructions. Pt stated, Please place order for Ortho. Dimple Castellon LPN * Telephone Encounter - Dimple Castellon LPN - 01/09/2025 1:20 PM EDT ----- Message from Elizabeth Suárez MD sent at 01/08/2025 1:15 PM EDT ----- Mri of the right shoulder does not show rotator cuff tear. Does show signs of frozen shoulder. If pain and weakness not improved after PT, would recommend referral to ortho. Will place order if patient agreeable. documented in this encounterAdams County Regional Medical Center04-04-2025 Telephone encounter Note * Telephone Encounter - Elizabeth Suárez MD - 01/10/2025 8:16 AM EDT Referral order placed. Please assist with scheduling. Continue exercises given by PT along with OTCanalgesics, ice/heat PRN. [facility]04-03-2025 Telephone encounter Note* Telephone Encounter - Dimple Castellon LPN - 01/09/2025 1:22 PM EDT Patient notified of results, verbalizes understanding of instructions. Pt stated, Please place order for Ortho. Dimple Castellon LPN [facility]04-03-2025 Telephone encounter Note* Telephone Encounter - Dimple Castellon LPN - 01/09/2025 1:20 PM EDT ----- Message from Elizabeth Suárez MD sent at 01/08/2025 1:15 PM EDT ----- Mri of the right shoulder does not show rotator cuff tear. Does show signs of frozen shoulder. If pain and weakness not improved after PT, would recommend referral to ortho. Will place order if patient agreeable. 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 He states he was being worked up for a lump in the right breast region which prompted MRI and mammogram. Due to the results of the MRI, his PCP sent him here. He denies any dizziness, vision changes,nausea/vomiting or falls. He is here for image [...] Primary insomnia 07/28/2020 QT prolongation 04/20/2021 Seen [facility] 04/19/2021: [place] to be benign and related to anti- [...] tablet Take 1 tablet by mouth every 12hours for 10 days. 20 tablet 0 albuterol [...] days. 30 capsule 0 Blood-Glucose Sensor (FREESTYLE DIANA 3 SENSOR) agnes USE ONE SENSOR EVERY [...] 90 day supply. 75 mL 3 Insulin Carpio, Disposable, (DROPLET PEN NEEDLE) 31 gauge x 16 Use 4 PEN NEEDLES to inject MEDICATION subcutaneously daily 400 Each 3 metFORMIN (GLUCOPHAGE) 500 mg tablet Take 2 tablets by mouth two times a day with meals. 360 tablet3 zonisamide (ZONEGRAN) 25 mg capsule Take 1 [...] 5/5 Data Review IMAGING STUDIES: MRI BRAIN o 12/11/2024: Convex upper margin of the pituitary [...] or changes in his facial features. He hastype 2 diabetes that has been difficult to control over the last couple years, with his last A1c jules ng higher than 10. His brain MRI showed [...] history were reviewed, confirmed, and updated as necessary:allergies, current medications, past family history, past medical history, past social history, past surgical history, problem list, HPI, and ROS obtained by others. Some elements may be copied from a previous office note and have been reviewed/updated where appropriate. All portions reflect current medical decision making from today. The clinical and radiographic findings as well as the risks, benefits and alternatives of treatmenthave been reviewed in detail with the patient. Advised to call the office if symptoms worsen or new symptoms develop. Patient expressed understanding and is in agreement with plan. Lauren Mckeon MD [facility] Medical Decision Making: Problems: Moderate: New problem with uncertain prognosis Data: Unique source(s) for external note(s) reviewed: 1 Unique test result(s) reviewed: 1 Unique test(s) ordered: 2 Risk: Moderate: Moderate risk from testing/treatment Medical Decision Making Level: 4 - Moderate This note was partially generated using [employer]ax voice recognition system, and there may be some incorrect words, spellings, and punctuation that were not noted in checking the note before saving. documented in this encounterAdams County Regional Medical Center03-31-2025 NoteHNO ID: [id number] Author: LAUREN MCKEON MD Service: ? Author Type: Physician Type: Progress Notes Filed: 01/06/2025 15:08 Note Text: NEUROSURGERY CONSULT NOTE Lauren Mckeon MD [facility] Date of visit: January 06, 2025 Patient Name: Mr.David Dany Delarosa Date of : 1975 Current Age: [age] year old Sex: male MRN/E# [id number] Last Office Visit: 12/24/2024 Chief Complaint: Patient [...] Primary insomnia 07/28/2020 QT prolongation 04/20/2021 Seen [facility] 04/19/2021: [place] to be benign and related to anti-depressants. [...] Comments uneffective Effexor [Zhou (more content not included)...[facility] 01-04-2025 History of Present illness Narrative* Dominik Bryant MRI Tech - 01/04/2025 8:40 AM EDT Radiology Service Progress Note PATIENT NAME: Bianca Delarosa DATE OF SERVICE: January 04, 2025 TIME: 8:38 AM PATIENT IDENTITY VERIFICATION COMPLETED USING TWO (2) IDENTIFIERS: Name and Date of confirmedby patient verbally and Name and Date of confirmed by identification band. FALL SCREENING: Has the patient had 2 falls in the last year or 1 fall with injury or currently using an Ambulatory Assistive Device (Walker, Cane, Wheelchair, Crutches, etc.)? No PATIENT GENDER DATA: Assigned male at PATIENT RELEVANT IMPLANT DATA REVIEWED: Yes PATIENT PRESENTS WITH AN IMPLANTABLE OR ATTACHED SUMO WRESTLER: No RADIOLOGY DEPARTMENT: MR; Exam(s) Completed: Upper MSK: Shoulder, right PERIPHERAL IV DATA: Not applicable SIGNED BY: KIESHA Benton January 04, 2025 8:38 AM documented in this encounterAdams County Regional Medical Center03-29-2025 NoteHNO ID: [id number] Author: DOMINIK BRYANT MRI Tech Service: Radiology Author Type: Senior Research Analyst Type: Progress Notes Filed: 01/04/2025 08:38 [...] PATIENT PRESENTS WITH AN IMPLANTABLE OR ATTACHED SUMO WRESTLER: No RADIOLOGY DEPARTMENT: MR; Exam(s) Completed: Upper MSK: Shoulder, right PERIPHERAL IV DATA: Not applicable SIGNED BY: Dominik Bryant neurologist January 04, 2025 8:38 AMMercy Health Anderson [id number] Telephone encounter Note* Telephone Encounter - Tam Daugherty MA - 12/30/2024 4:58 PM EDT Patient notified and voiced understanding. Tam Daugherty MA [facility]03-24-2025 Miscellaneous Notes* Telephone Encounter - Tam Daugherty MA - 12/30/2024 4:58 PM EDT Patient notified and voiced understanding. Tam Daugherty MA * Telephone Encounter - Humberto Jackson MD - 12/30/2024 4:06 PM EDT Let patient know his x-ray did not show any pneumonia but I want him to complete the antibiotic andf/u with me as planned. documented in this encounterAdams County Regional Medical Center03-24-2025 Telephone encounter Note * Telephone Encounter - Humberto Jackson MD - 12/30/2024 4:06 PM EDT Let patient know his x-ray did not show any pneumonia but I want him to complete the antibiotic andf/u with me as planned. [facility]03-24-2025 History of Present illness Narrative* Dalton Greenfield RT(R) - 12/30/2024 9:20 AM EDT Radiology Service Progress Note PATIENT NAME: Bianca [...] PATIENT PRESENTS WITH AN IMPLANTABLE OR ATTACHED SUMO WRESTLER: No RADIOLOGY DEPARTMENT: General X-ray: Exam(s) Completed: Chest X-Ray PERIPHERAL IV DATA: Not applicable SIGNED BY: RT Sarah(R) December 30, 2024 9:23 AM documented in this encounterAdams County Regional Medical Center03-24-2025 NoteCleveland [facility]03-24-2025 Instructions* Patient Instructions* Humberto Jackson MD - 12/30/2024 9:03 AM EDT Please get non-fasting labs on or after 01/30/2025 Please get labs done on or after 06/20/2025 prior to your next visit. documented in this encounterAdams County Regional Medical Center03-24-2025 NoteCleveland [facility]03-24-2025 History of Present illness Narrative* Humberto Jackson MD - 12/30/2024 8:01 AM EDT Images from the original note [...] on had a URI, fevers and chills. [place] ok yesterday but feeling winded with activity. [...] Primary insomnia 07/28/2020 QT prolongation 04/20/2021 Seen [facility] 04/19/2021: [place] to be benign and related to anti- depressants. No changes needed. TMJ (temporomandibular joint disorder) 03/31/2014 Right side Type 2 diabetes mellitus without complication, without long-term current use of insulin ([facility]) 01/19/2017 Well adult exam 12/17/2014 [...] daily for 30 days. Blood-Glucose Sensor (FREESTYLE DIANA 3 SENSOR) agnes USE ONE SENSOR EVERY [...] mL for a 90 day supply. Insulin Carpio, Disposable, (DROPLET PEN NEEDLE) 31 gauge x [...] Lymph 1.00 - 4.00 k/uL 3.30 2.65 [place]% % 4.7 6.0 Abs [place] <0.87 k/uL 0.49 0.48 Eosin% % 1.6 [...] which included preparing to see the patient, [id number] patient care, completing clinical documentation, performing a medically appropriate examination, counseling and educating the patient/family/caregiver and ordering medications, tests, or procedures. Humberto Jackson MD SENSITIVE EXAMINATION CONSENT: The sensitive examination was discussed with the Patient or Patient's Authorized Call Circuit Worker. Asapplicable, any other physician, advance practice provider, medical student, or other health professional student that will be observing or involved in the sensitive examination for educational or training purposes was discussed with the Patient or Authorized Call Circuit Worker. The Patient or Authorized Call Circuit Worker has agreed to proceed with the sensitive examination. documented in this encounterAdams County Regional Medical Center03-18-2025 Telephone encounter Note * Telephone Encounter - Chago Penaloza - 12/24/2024 2:01 PM EDT I spoke to patient confirming we can not do video appts for new patients. Spouse understood and confirmed day and time of appt [facility]03-18-2025 Miscellaneous Notes* Telephone Encounter - Chago Penaloza - 12/24/2024 2:01 PM EDT I spoke to patient confirming we can not do video appts for new patients. Spouse understood and confirmed day and time of appt documented in this encounterAdams County Regional Medical Center03-17-2025 Telephone encounter Note * Telephone Encounter - Corazon Ndiaye LPN - 12/23/2024 2:45 PM EDT Patient Ade romero got a call from Dr Younger office he does not see patients with pituitary.Assisted with transfer to scheduler conveyor, to assist with trying to find Dr that will see pituitary adenoma. [facility]03-17-2025 Miscellaneous Notes* Telephone Encounter - Corazon Ndiaye LPN - 12/23/2024 2:45 PM EDT Patient Ade romero got a call from Dr Younger office he does not see patients with pituitary.Assisted with transfer to scheduler conveyor, to assist with trying to find Dr that will see pituitary adenoma. documented in this encounterAdams County Regional Medical Center03-14-2025 Telephone encounter Note * Telephone Encounter - Chago Penaloza - 12/20/2024 4:03 PM EDT I spoke to patient informing her that Dr. GARCIA does not see if pituitary tumors and I will speakto Dr. Wyman and see if he will be willing to see patient as patient ENDO appt is not until February. was not happy but understood. [facility]03-14-2025 Miscellaneous Notes* Telephone Encounter - Chago Penaloza - 12/20/2024 4:03 PM EDT I spoke to patient informing her that Dr. GARCIA does not see if pituitary tumors and I will speakto Dr. Wyman and see if he will be willing to see patient as patient ENDO appt is not until February. was not happy but understood. documented in this encounterAdams County Regional Medical Center03-14-2025 History of Present illness Narrative* Humberto Jackson MD - 12/20/2024 9:31 AM EDT Chief Complaint Patient presents with: [...] proton pump inhibitor 09/26/2018 Diabetic eye exam ([facility]) 01/27/2017 Last eye exam: 03/05/2019 [...] disorder with single episode, in partial remission ([facility]) 09/26/2018 Migraine without aura and without status migrainosus, not intractable 09/11/2015 Mood disorder ([facility]) 03/31/2014 Multiple thyroid nodules 02/27/[address] Lazaro 03/2018 Multiple thyroid nodules 02/27/2018 US 03/2020 per radiology no further f/u needed.. All benign Biopsy 03/[address] Lazaro. Benign. Obesity, Class II, BMI 35-39.9 10/21/2022 Obstructive sleep apnea syndrome 01/27/2017 On CPAP Other joint derangement, not elsewhere classified, lower leg 03/25/2013 Primary insomnia 07/28/2020 QT prolongation 04/20/2021 Seen [facility] 04/19/2021: [place] to be benign and related to anti- [...] daily for 30 days. Blood-Glucose Sensor (FREESTYLE DIANA 3 SENSOR) agnes USE ONE SENSOR EVERY [...] mL for a 90 day supply. Insulin Carpio, Disposable, (DROPLET PEN NEEDLE) 31 gauge x [...] mIU/mL <0.6 Results MRI BRAIN WO/W IVCON (Acc#[id number]) (Order [id number]) Patient Info Patient Name Sex Bianca Morales ([id number]) Male 1975 12/11/2024 11:22 AM - Radiology, Oru In Results-Findings * * *Final Report* * * DATE OF EXAM: Dec 11 2024 10:59AM BR [id number] - MRI BRAIN WO/W IVCON / [...] reflect an underlying lesion/adenoma or pituitary hyperplasia. Drill Setup Operator: GORGE Transcribe Date/Time: Dec 11 2024 11:13A Dictated by : DAVID FAY MD This examination was interpreted and the report reviewed and electronically signed by: DAVID FAY MD on Dec 11 2024 11:19AM EST Results XR SHOULDER GENERAL 3V OR MORE AP/TRUE AP/OTHER RIGHT (Acc#[id number]) (Order [id number]) Patient Info Patient Name Sex Bianca Morales ([id number]) Male 1975 05/26/2024 7:34 PM - Radiology, Oru In Impression IMPRESSION: No acute bone abnormality. Drill Setup Operator: PSCB Transcribe Date/Time: May 26 2024 7:31P [...] - CONSULT TO NEUROSURGERY: Dr. Younger at [facility] - patient to keep endo appt. 2. Acute pain of right shoulder - ICD9: 719.41, ICD10: M25.511 - patient has completed conservative Tx and though his ROM is better he continues to have pain and weakness. Need MRI to further eval the muscles that support the shoulder and R/O a rotator cuff tear. 3. Elevated prolactin level - ICD9: 790.99, ICD10: R79.89 - CONSULT TO NEUROSURGERY 4. Pituitary adenoma (HCC) - ICD9: 227.3, ICD10: D35.2 - CONSULT TO NEUROSURGERY Patient to go get labs. Humberto Jackson MD documented in this encounterCleveland [id number] NoteCleveland Clinic [facility]03-10-2025 Telephone encounter Note* Telephone Encounter - Tam Daugherty MA - 12/16/2024 3:12 PM EDT ----- Message from Juhi Wyman sent at 12/16/2024 2:11 PM EDT ----- Patient scheduled himself via MyChart for consult. ----- Message ----- From: Tam Daugherty MA Sent: 12/16/2024 9:27 AM EDT To: [facility] Clerical Pool [facility]03-10-2025 Miscellaneous Notes* Telephone Encounter - Tam Daugherty MA - 12/16/2024 3:12 PM EDT ----- Message from Juhi Wyman sent at 12/16/2024 2:11 PM EDT ----- Patient scheduled himself via MyChart for consult. ----- Message ----- From: Tam Daugherty MA Sent: 12/16/2024 9:27 AM EDT To: [facility] Clerical Pool * Telephone Encounter - Tam Daugherty MA - 12/16/2024 9:23 AM EDT Please assist with scheduling neurosurgery. Tam Daugherty MA * Telephone Encounter - Humberto Jackson MD - 2024 12:52 PM EST Let patient I'll place a referral to see Endo. Which we have up at the [facility]. I know I se he has an appt with Endocrine/Pituitary at [facility] on 02/06/2025 and this is who can help address the testosterone level. * Telephone Encounter - Ezra Stein LPN - 12/12/2024 11:30 AM EST Pt notified of results and instructions. Pt verbalizes understanding and was assisted in transfer to schedule MRI. Pt advises that he saw his low testosterone result on My Chart and questions what heshould do about this. Ezra Stein LPN * Telephone Encounter - Humberto Jackson MD - 12/11/2024 3:26 PM EST Let patient know the MRI does show a possibility of a abnormality in his pituitary. I want to have him see a neurosurgeon to get their opinion. documented in this encounterAdams County Regional [facility] Tele[facility] encounter Note * Telephone Encounter - Tam Daugherty MA - 12/16/2024 9:24 AM EDT Patient notified via my chart. Tam Daugherty MA [facility]03-10-2025 Miscellaneous Notes* Telephone Encounter - Tam Daugherty MA - 12/16/2024 9:24 AM EDT Patient notified via my chart. Tam Daugherty MA documented in this encounterAd[facility]03-10-2025 Telephone encounter Note * Telephone Encounter - Tam Daugherty MA - 12/16/2024 9:23 AM EDT Please assist with scheduling neurosurgery. Tam Daugherty MA [facility]03-07-2025 Telephone encounter Note* Telephone Encounter - Laurie Gonzales LPN - 2024 2:24 PM EST [facility] NEW PATIENT REFERRAL TRIAGE Referral source:self No referring provider defined for this encounter. Referral Reason: for a second opinion on neurological symptoms Care Everywhere Completed Connection: [x]Yes or []No MyChart Dot Phrase Sent if Records were not sent MyChart Account?: [x]Yes or []No MyChart Dot Phrase Sent: Date 2024 Laurie Gonzales LPN [facility]03-07-2025 Miscellaneous Notes* Telephone Encounter - Laurie Gonzales LPN - 2024 2:24 PM EST [facility] PATIENT REFERRAL TRIAGE Referral source:self No referring provider defined for this encounter. Referral Reason: for a second opinion on neurological symptoms Care Everywhere Completed Connection: [x]Yes or []No MyChart Dot Phrase Sent if Records were not sent MyChart Account?: [x]Yes or []No MyChart Dot Phrase Sent: Date 2024 Laurie Gonzales LPN documented in this encounterAdams [facility]03-07-2025 Telephone encounter Note * Telephone Encounter - Humberto Jackson MD - 2024 12:52 PM EST Let patient I'll place a referral to see Endo. Which we have up at the [facility]. I know I se he has an appt with Endocrine/Pituitary at [facility] on 02/06/2025 and this is who can help address the testosterone level. [facility]03-06-2025 Telephone encounter Note* Telephone Encounter - Ezra Stein LPN - 12/12/2024 11:30 AM EST Pt notified of results and instructions. Pt verbalizes understanding and was assisted in transfer to schedule MRI. Pt advises that he saw his low testosterone result on My Chart and questions what heshould do about this. Ezra Stein LPN [facility]03-06-2025 Telephone encounter Note* Telephone Encounter - Radha Bland - 12/12/2024 10:15 AM EST Patient has been scheduled and confirmed Radha Bland December 12, 2024 10:15 AM [facility]03-06-2025 Miscellaneous Notes* Telephone Encounter - Radha Bland - 12/12/2024 10:15 AM EST Patient has been scheduled and confirmed Radha Bland December 12, 2024 10:15 AM * Telephone Encounter - Corazon Reed APRN.CNP - 12/12/2024 9:31 AM EST Time Frame: Next available If unable to obtain an appointment within requested time frame, please contact appropriate career developer for scheduling access Provider: Miles Raymond Referring: Humberto Jackson MD Please instruct patient to hand carry/ upload images prior to appt Dx: pituitary adenoma Patient: Bianca Delarosa Address: Bianca Delarosa [id number] [address] Per Triage: Bianca Delarosa is a 48 year old male that requests evaluation of previously diagnosed pituitaryadenoma during work up for gynecomastia. Patient expectations: [...] reflect an underlying lesion/adenoma or pituitary hyperplasia. Drill Setup Operator: GORGE Transcribe Date/Time: Dec 11 2024 11:13A [...] low Corazon Reed APRN.CNP December 12, 2024 * Telephone Encounter - BlandLuis candelariojustina - 12/12/2024 9:26 AM EST Request Summary [[id number]] Procedure: CONSULT TO NEUROSURGERY Status: Needs Scheduling Requested appt date: Authorizing: Humberto Jackson MD in [facility] Referral: [id number] (Authorized) Expires: 12/11/2025 Priority: Routine Diagnosis: Gynecomastia, male [N62] Elevated prolactin level [R79.89] Abnormal finding on MRI of brain [R90.89] Order Specific Questions Does consulting provider have [facility] Epic access? Yes [facility] Brain Tumor documented in this encounterAdams County [facility]03-06-2025 Telephone encounter Note * Telephone Encounter - Corazon Reed APRN.CNP - 12/12/2024 9:31 AM EST Time Frame: Next available If unable to obtain an appointment within requested time frame, please contact appropriate career developer for scheduling access Provider: Miles Raymond Referring: Humberto Jackson MD Please instruct patient to hand carry/ upload images prior to appt Dx: pituitary adenoma Patient: Bainca Delarosa Address: Bianca Delarosa [id number] [place] [address] Per Triage: Bianca Delarosa is a 48 year old male that requests evaluation of previously diagnosed pituitaryadenoma during work up for gynecomastia. Patient expectations: New Consult Tumor Specifics: Location: pituitary Previous Evaluations: MRI w/wo contrast * * *Final Report* * * DATE OF EXAM: Dec 11 2024 10:59AM [facility] 0295 - MRI BRAIN WO/W [...] reflect an underlying lesion/adenoma or pituitary hyperplasia. Drill Setup Operator: GORGE Transcribe Date/Time: Dec 11 2024 11:13A Dictated by : DAVID FAY MD This examination was interpreted and the report reviewed and electronically signed by: DAVID FAY MD on Dec 11 2024 11:19AM [facility] Endocrinology Evaluation Latest Reference Range & Units [...] (L): Data is abnormally low Corazon Reed APRN.CHRISTOPHER December 12, 2024 [facility] Work Phone: 1(356) 662-699503-06-2025 Telephone encounter Note* Telephone Encounter - Radha Bland - 12/12/2024 9:26 AM EST Request Summary [[id number]] Procedure: CONSULT TO NEUROSURGERY Status: Needs Scheduling Requested appt date: Authorizing: Humberto Jackson MD in [facility] Referral: [id number] (Authorized) Expires: 12/11/2025 Priority: Routine Diagnosis: Gynecomastia, male [N62] Elevated prolactin level [R79.89] Abnormal finding on MRI of brain [R90.89] Order Specific Questions Does consulting provider have [facility] Epic access? Yes [facility]03-05-2025 Telephone encounter Note* Telephone Encounter - Humberto Jackson MD - 12/11/2024 3:26 PM EST Let patient know the MRI does show a possibility of a abnormality in his pituitary. I want to have him see a neurosurgeon to get their opinion. [facility]03-05-2025 History of Present illness Narrative* Janae De León RN - 12/11/2024 10:00 AM EST Radiology Service Progress Note DATE OF SERVICE: [...] Left antecubital site with a Angio cath: 22gauge. and A Saline lock was inserted per protocol IV SITE APPEARANCE: Clean,Dry and Intact SIGNATURE: Janae De León RN PATIENT NAME: Bianca Delarosa DATE: December 11, 2024 TIME: 10:04 AM * Krystal Ash, (R) - 12/11/2024 10:00 AM EST Radiology Service Progress Note PATIENT [...] PATIENT PRESENTS WITH AN IMPLANTABLE OR ATTACHED SUMO WRESTLER: No RADIOLOGY DEPARTMENT: MR; Exam(s) Completed: Head: Routine Brain PERIPHERAL IV DATA: Site assessment: Clean,Dry and Intact, Site disposition Discontinued SIGNED BY: Krystal Ash RT(R) December 11, 2024 10:45 AM documented in this encounterAdams County [facility]03-05-2025 [facility]03-03-[facility] Telephone encounter Note* Telephone Encounter - Humberto Jackson MD - 12/09/2024 12:04 PM EST Let p-t know I tried sending a different formulation of the methylphenidate to [facility]. If stillan issue let me know. The following approved medication requests have been transmitted electronically. Requested Prescriptions Signed Prescriptions Disp Refills methylphenidate LA (RITALIN LA) 20 mg biphasic capsule 30 capsule 0 Sig: Take 1 capsule by mouth once daily for 30 days. Humberto Jackson MD [facility]03-03-2025 Miscellaneous Notes* Telephone Encounter - Humberto Jackson MD - 12/09/2024 12:04 PM EST Let p-t know I tried sending a different formulation of the methylphenidate to [facility]. If stillan issue let me know. The following approved medication requests have been transmitted electronically. Requested Prescriptions Signed Prescriptions Disp Refills methylphenidate LA (RITALIN LA) 20 mg biphasic capsule 30 capsule 0 Sig: Take 1 capsule by mouth once daily for 30 days. Humberto Jackson MD documented in this encounterAdams County [facility] Center02-26-2025 Telephone encounter Note * Telephone Encounter - Juhi Murillo RN - 12/04/2024 11:00 AM EST Patient notified of results and provider's instructions. Patient verbalizes understanding. Juhi Murillo RN [facility]02-26-2025 Miscellaneous Notes* Telephone Encounter - Juhi Murillo RN - 12/04/2024 11:00 AM EST Patient notified of results and provider's instructions. Patient verbalizes understanding. Juhi Murillo RN * Telephone Encounter - Ezra Stein LPN - 12/04/2024 10:21 AM EST Left message for pt to contact office. Erza Stein LPN * Telephone Encounter - Humberto Jackson MD - 12/03/2024 8:13 PM EST Let patient know the mammogram and US [...] to restart the metformin. documented in this encounterAdams County [facility] Center02-26-2025 Telephone encounter Note * Telephone Encounter - Ezra Stein LPN - 12/04/2024 10:21 AM EST Left message for pt to contact office. Ezra Stein LPN [facility]02-25-2025 Telephone encounter Note* Telephone Encounter - Humberto Jackson MD - 12/03/2024 8:13 PM EST Let patient know the mammogram and US [...] let him know to restart the metformin. [facility]02-25-2025 History of Present illness Narrative* Berkley Echevarria RDMS - 12/03/2024 9:30 AM EST Radiology Service Progress Note PATIENT [...] PATIENT PRESENTS WITH AN IMPLANTABLE OR ATTACHED SUMO WRESTLER: No RADIOLOGY DEPARTMENT: Ultrasound PERIPHERAL IV DATA: Not applicable SIGNED BY: Berkley Echevarria RDMS [facility] December 03, 2024 1:57 PM documented in this encounterAdams County Regional [facility] Center02-25-2025 NoteC[facility]02-25-[facility] History of Present illness Narrative* Audrey Clemens Mammo Tech - 12/03/2024 8:30 AM EST Radiology Service Progress Note PATIENT [...] Assigned female at . status: : No status:NO. PATIENT RELEVANT IMPLANT DATA REVIEWED: Not Applicable PATIENT PRESENTS WITH AN IMPLANTABLE OR ATTACHED SUMO WRESTLER: No RADIOLOGY DEPARTMENT: Mammography PERIPHERAL IV DATA: Not applicable SIGNED BY: Epi Truongo Lincoln December 03, 2024 8:15 AM documented in this encounterAdams County [facility] Center02-25-2025 NoteC[facility]02-19-2025 Telephone encounter Note* Telephone Encounter - Ezra Stein LPN - 11/27/2024 8:54 AM EST Patient notified of results and provider's instructions. Patient verbalizes understanding. Pt was assisted in transfer to schedule MRI. Ezra Stein LPN [facility]02-19-2025 Miscellaneous Notes* Telephone Encounter - Ezra Stein LPN - 11/27/2024 8:54 AM EST Patient notified of results and provider's instructions. Patient verbalizes understanding. Pt was assisted in transfer to schedule MRI. Ezra Stein LPN * Telephone Encounter - Humberto Jackson MD - 11/26/2024 4:48 PM EST Let patient know all the labs test [...] to restart the metformin. documented in this encounterAdams County [facility] Center02-18-2025 Telephone encounter Note * Telephone Encounter - Humberto Jackson MD - 11/26/2024 4:48 PM EST Let patient know all the labs test [...] can be told to restart the metformin. [facility]02-14-2025 History of Present illness Narrative* Humberto Jackson MD - 11/22/2024 8:20 AM EST Chief Complaint Patient presents with: Pain: Right [...] status migrainosus, not intractable 09/11/2015 Mood disorder ([facility]) 03/31/2014 Multiple thyroid nodules 02/27/[address] Lazaro 03/2018 Multiple thyroid nodules 02/27/2018 US 03/2020 per radiology no further f/u needed.. All benign Biopsy 03/[address] Lazaro. Benign. Obesity, Class II, BMI 35-39.9 10/21/2022 Obstructive sleep apnea syndrome 01/27/2017 On CPAP Other joint derangement, not elsewhere classified, lower leg 03/25/2013 Primary insomnia 07/28/2020 QT prolongation 04/20/2021 Seen [facility] 04/19/2021: [place] to be benign and related to anti- depressants. No changes needed. TMJ (temporomandibular joint disorder) 03/31/2014 Right side Type 2 diabetes mellitus without complication, without long-term current use of insulin ([facility]) 01/19/2017 Well adult exam 12/17/2014 [...] daily for 30 days. Blood-Glucose Sensor (FREESTYLE DIANA 3 SENSOR) agnes USE ONE SENSOR EVERY [...] mL for a 90 day supply. Insulin Carpio, Disposable, (DROPLET PEN NEEDLE) 31 gauge x [...] no acute distress, well-hydrated, well nourished. andObese. Breast: No skin changes or dimpling, Negative findings: normal in size and symmetry, normal contourwith no evidence of flattening or dimpling, skin [...] needed. Humberto Jackson MD documented in this encounterAdams County [facility] Center02-14-2025 NoteC[facility]02-10-2025 Telephone encounter Note* Telephone Encounter - Humberto Jackson MD - 11/18/2024 8:47 PM EST The following approved medication requests have been transmitted electronically. Requested Prescriptions Signed Prescriptions Disp Refills methylphenidate CD (METADATE CD) 20 mg biphasic capsule 30 capsule 0 Sig: Take 1 capsule by mouth once daily for 30 days. Authorizing Provider: HUMBERTO JACKSON, MD PDMP website checked and validated. All prescriptions have been APPROPRIATELY filled. No suspiciousactivity was identified. 11/18/2024 by Humberto Jackson MD [facility]02-10-2025 Miscellaneous Notes* Telephone Encounter - Humberto Jackson MD - 11/18/2024 8:47 PM EST The following approved medication requests have been transmitted electronically. Requested Prescriptions Signed Prescriptions Disp Refills methylphenidate CD (METADATE CD) 20 mg biphasic capsule 30 capsule 0 Sig: Take 1 capsule by mouth once daily for 30 days. Authorizing Provider: HUMBERTO JACKSON MD PDMP website checked and validated. All prescriptions have been APPROPRIATELY filled. No suspiciousactivity was identified. 11/18/2024 by Humberto Jackson MD * Telephone Encounter - Tia Ibarra MA - 11/18/2024 6:08 PM EST Prescription Refill Information The patient has been [...] 18, 2024 6:08 PM documented in this encounterAdams County [facility] Center02-10-2025 Telephone encounter Note * Telephone Encounter - Tia Ibarra MA - 11/18/2024 6:08 PM EST Prescription Refill Information The patient has been [...] Ibarra MA November 18, 2024 6:08 PM [facility]01-28-2025 Telephone encounter Note* Telephone Encounter - Regina Parrish MA - 11/05/2024 7:56 AM EST Prescription Refill Information The patient has been [...] Pending Prescriptions Disp Refills Blood-Glucose Sensor (FREESTYLE DIANA 3 SENSOR) agnes [Pharmacy Med Name: FREESTYLE DIANA 3 SENSOR] 2 Each 3 Sig: USE ONE SENSOR EVERY 14 DAY, IDDM, E11.9 Regina Parrish MA November 05, 2024 7:56 AM [facility]01-28-2025 Miscellaneous Notes* Telephone Encounter - Regina Parrish MA - 11/05/2024 7:56 AM EST Prescription Refill Information The patient has been [...] Pending Prescriptions Disp Refills Blood-Glucose Sensor (FREESTYLE DIANA 3 SENSOR) agnes [Pharmacy Med Name: FREESTYLE DIANA 3 SENSOR] 2 Each 3 Sig: USE ONE SENSOR EVERY 14 DAY, IDDM, E11.9 Regina Parrish MA November 05, 2024 7:56 AM documented in this encounterAdams County [facility] Center01-20-2025 Telephone encounter Note * Telephone Encounter - Emma Martínez RN - 10/28/2024 7:00 PM EST Pt called and is notified of providers results and instructions. Pt voices understanding. Emma Martínez RN [facility]01-20-2025 Miscellaneous Notes* Telephone Encounter - Emma Martínez RN - 10/28/2024 7:00 PM EST Pt called and is notified of providers results and instructions. Pt voices understanding. Emma Martínez RN * Telephone Encounter - Humberto Jackson MD - 10/28/2024 4:48 PM EST Let patient know the US was ok except it showed fatty lover. This can progress over time to developinto liver scaring and this is cirrhosis which can lead to and increased risk of liver cancer. It is imperative to work on weight loss and decreased fat in the diet. Once the labs are done I can determine if any further w/u needed. * Telephone Encounter - Tam Daugherty MA - 10/18/2024 8:59 AM EST Patient notified and voiced understanding. Please assist patient to schedule US. Tam Daugherty MA * Telephone Encounter - Humberto Jackson MD - 10/17/2024 9:07 PM EST Let patient know I have placed some additional labs to work up the elevated alk phos and want to get a US of his gal bladder to see if he has stones. Order placed. * Telephone Encounter - Dannielle Herr MA - 10/17/2024 11:13 AM EST Patient informed and verbalized understanding. He states he was fasting for these labs. Dannielle Herr MA * Telephone Encounter - Humberto Jackson MD - 10/16/2024 8:20 PM EST Let patient know the test for a [...] I'm going to increase his fenofibrate to 120mg once a day. Script sent. His A1c is still high at 11.7. I don't see that he has any f/u appt with Endo and needs to do this.Looks like he canceled his appt in 04/2024 and never rescheduled. documented in this encounterAdams County [facility] Center01-20-2025 Telephone encounter Note * Telephone Encounter - Humberto Jackson MD - 10/28/2024 4:48 PM EST Let patient know the US was ok except it showed fatty lover. This can progress over time to developinto liver scaring and this is cirrhosis which can lead to and increased risk of liver cancer. It is imperative to work on weight loss and decreased fat in the diet. Once the labs are done I can determine if any further w/u needed. [facility]01-17-2025 History of Present illness Narrative* Berkley Echevarria RDMS - 10/25/2024 7:45 AM EST Radiology Service Progress Note PATIENT [...] PATIENT PRESENTS WITH AN IMPLANTABLE OR ATTACHED SUMO WRESTLER: No RADIOLOGY DEPARTMENT: Ultrasound PERIPHERAL IV DATA: Not applicable SIGNED BY: Berkley Echevarria RDMS [facility] October 25, 2024 10:05 AM documented in this encounterAdams County Regional Medical Center01-17-2025 NoteC[facility]01-15-2025 Telephone encounter Note* Telephone Encounter - Humberto Jackson MD - 10/23/2024 4:35 PM EST The following approved medication requests have been transmitted electronically. Requested Prescriptions Signed Prescriptions Disp Refills sucralfate (CARAFATE) 1 gram tablet 60 tablet 5 Sig: Take one tab with lunch and before bed. Humberto Jackson MD [facility]01-15-2025 Miscellaneous Notes* Telephone Encounter - Humberto Jackson MD - 10/23/2024 4:35 PM EST The following approved medication requests have been transmitted electronically. Requested Prescriptions Signed Prescriptions Disp Refills sucralfate (CARAFATE) 1 gram tablet 60 tablet 5 Sig: Take one tab with lunch and before bed. Humberto Jackson MD documented in this encounterAdams County [facility] Center01-10-2025 Telephone encounter Note * Telephone Encounter - Tam Daugherty MA - 10/18/2024 8:59 AM EST Patient notified and voiced understanding. Please assist patient to schedule US. Tam Daugherty MA [facility]01-09-2025 Telephone encounter Note* Telephone Encounter - Humberto Jackson MD - 10/17/2024 9:07 PM EST Let patient know I have placed some additional labs to work up the elevated alk phos and want to get a US of his gal bladder to see if he has stones. Order placed. [facility]01-09-2025 Telephone encounter Note* Telephone Encounter - Dannielle Herr MA - 10/17/2024 11:13 AM EST Patient informed and verbalized understanding. He states he was fasting for these labs. Dannielle Herr MA [facility]01-08-2025 Telephone encounter Note* Telephone Encounter - Humberto Jackson MD - 10/16/2024 8:20 PM EST Let patient know the test for a [...] I'm going to increase his fenofibrate to 120mg once a day. Script sent. His A1c is still high at 11.7. I don't see that he has any f/u appt with Endo and needs to do this.Looks like he canceled his appt in 04/2024 and never rescheduled. [facility]01-06-2025 NoteC[facility]01-03-2025 Telephone encounter Note* Telephone Encounter - Roldan Pierce MD - 10/11/2024 9:29 AM EST Come in and see one of the providers [facility] Work Phone: 1([phone]) 536-133301-03-2025 Miscellaneous Notes* Telephone Encounter - Roldan Pierce MD - 10/11/2024 9:29 AM EST Come in and see one of the providers * Telephone Encounter - Geoffrey oMody MA - 10/10/2024 4:46 PM EST Pt recently seen in office on 09/17/24 for ADD medication. No GERD issues discussed at visit. Please advise if pt needs an appt to discuss or okay to adjust medication. Geoffrey Moody MA documented in this encounterAdams County [facility] Center01-02-2025 Telephone encounter Note * Telephone Encounter - Geoffrey Moody MA - 10/10/2024 4:46 PM EST Pt recently seen in office on 09/17/24 for ADD medication. No GERD issues discussed at visit. Please advise if pt needs an appt to discuss or okay to adjust medication. Geoffrey Moody MA [facility]12-10-2024 [facility]12-10-2024 History of Present illness Narrative* Humberto Jackson MD - 09/17/2024 9:24 AM EST Chief Complaint Patient presents with: Follow Up [...] taking buspar 15 mg BID, cymbalta 60 mga day and Olanzapine 5 mg a day. [...] Primary insomnia 07/28/2020 QT prolongation 04/20/2021 Seen [facility] 04/19/2021: [place] to be benign and related to anti- depressants. No changes needed. TMJ (temporomandibular joint disorder) 03/31/2014 Right side Type 2 diabetes mellitus without complication, without long-term current use of insulin ([facility]) 01/19/2017 Well adult exam 12/17/2014 [...] tab by mouth twice a day. Insulin Carpio, Disposable, (DROPLET PEN NEEDLE) 31 gauge x 3/16 Use 4 PEN NEEDLES to inject MEDICATION subcutaneously daily metFORMIN (GLUCOPHAGE) 500 mg tablet Take 2 tablets by mouth two times a day with meals. Blood-Glucose Sensor (FREESTYLE DIANA 3 SENSOR) agnes Use one sensor every [...] - ICD9: 296.25, ICD10:F32.4 - as per #2 4. Agitation - [...] routine. Humberto Jackson MD documented in this encounterAdams County Regional Medical Center11-18-2024 NoteC[facility]11-18-2024 History of Present illness Narrative* Karla Patel PT - 08/26/2024 11:14 AM EST Images from the original note were not included. Episode Visit Count: 5 Therapist That Will Accept/Oversee The Plan Of Care: Karla Patel PT Start of Care Date: 06/12/24 [...] to 08/26/2024 and treatment included: Therapeutic exercise, Self-alf management, Patient/Family/Caregiver Education, and Body mechanics training. Updated: 07/22/24 and 08/26/24 Goals for Episode of Care: established 06/12/24 [place] in [place] exercise program. - MET Patient [...] He reports that pain is a lot lessfrequent. Pain: Pain Pain Level: 0 Pain Location: [...] provided an update on his condition and planof care reviewed. 1:1 throughout) 2: seated R [...] : 1031 Session Stop Time : 1106 Karla Patel PT documented in this encounterAdams County Regional Medical Center11-11-2024 History of Present illness Narrative* Humberto Jackson MD - 08/19/2024 3:00 PM EST Chief Complaint Patient presents with: Follow Up [...] taking buspar 15 mg BID, cymbalta 60 mga day and Olanzapine 5 mg a day. 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 Lazaro 03/2018 Multiple thyroid nodules 02/27/2018 US 03/2020 per radiology no further f/u needed.. All benign Biopsy 03/[address] Lazaro. Benign. Obesity, Class II, BMI 35-39.9 10/21/2022 Obstructive sleep apnea syndrome 01/27/2017 On CPAP Other joint derangement, not elsewhere classified, lower leg 03/25/2013 Primary insomnia 07/28/2020 QT prolongation 04/20/2021 Seen [facility] 04/19/2021: [place] to be benign and related to anti- [...] 1 capsule by mouth once daily. Insulin Carpio, Disposable, (DROPLET PEN NEEDLE) 31 gauge x /16 Use 4 PEN NEEDLES to inject MEDICATION subcutaneously daily metFORMIN (GLUCOPHAGE) 500 mg tablet Take 2 tablets by mouth two times a day with meals. Blood-Glucose Sensor (FREESTYLE DIANA 3 SENSOR) agnes Use one sensor every 14 day, IDDM, E11.9 zonisamide (ZONEGRAN) 25 mg capsule Take 1 capsule by mouth once daily. CPAP AUTO PAP 5-20 cmH20, CHIN STRAP, heated HUMIDITY, mask of patient's choice. LIFETIME SUPPLIES.SD Card. Download to [employer]. multivitamin tablet Take 1 tablet by mouth [...] no acute distress, well-hydrated, well nourished. andObese. Neck: Supple, no adenopathy; thyroid symmetric, normal [...] remission (HCC) - ICD9: 296.25, ICD10:F32.4 - will increase the cymbalta to a [...] been APPROPRIATELY filled. No suspiciousactivity was identified. 08/19/2024 by MD Humberto Echeverria MD documented in this encounterAdams County Regional [facility] Center11-11-2024 [facility] Telephone encounter Note* Telephone Encounter - Humberto Jackson MD - 08/19/2024 12:52 PM EST The following approved medication requests have been transmitted electronically. Requested Prescriptions Signed Prescriptions Disp Refills methylphenidate CD (METADATE CD) 10 mg biphasic capsule 30 capsule 0 Sig: Take 1 capsule by mouth once daily for 30 days. Authorizing Provider: HUMBERTO JACKSON MD PDMP website checked and validated. All prescriptions have been APPROPRIATELY filled. No suspiciousactivity was identified. 08/19/2024 by Humberto Jackson MD [facility]11-11-2024 Miscellaneous Notes* Telephone Encounter - Humberto Jackson MD - 08/19/2024 12:52 PM EST The following approved medication requests have been transmitted electronically. Requested Prescriptions Signed Prescriptions Disp Refills methylphenidate CD (METADATE CD) 10 mg biphasic capsule 30 capsule 0 Sig: Take 1 capsule by mouth once daily for 30 days. Authorizing Provider: HUMBERTO JACKSON MD PDMP website checked and validated. All prescriptions have been APPROPRIATELY filled. No suspiciousactivity was identified. 08/19/2024 by Humberto Jackson MD * Telephone Encounter - Ezra Stein LPN - 08/19/2024 10:37 AM EST Prescription Refill Information The patient has been [...] by mouth once daily for 30 days. Ezra Stein LPN August 19, 2024 10:37 AM documented in this encounterAdams County Regional Medical Center11-11-2024 Telephone encounter Note * Telephone Encounter - Ezra Stein LPN - 08/19/2024 10:37 AM EST Prescription Refill Information The patient has been [...] by mouth once daily for 30 days. Ezra Stein LPN August 19, 2024 10:37 AM [facility]10-28-2024 [facility]10-28-[facility] History of Present illness Narrative* Karla Patel PT - 08/05/2024 8:33 AM EDT Episode Visit Count: 4 Therapist That Will Accept/Oversee The Plan Of Care: Karla Patel PT Start of Care Date: 06/12/24 Onset Date: 05/12/24 Plan of Care Certification Date: 09/25/17 Patient Identified by Name and Date of : Yes REHABILITATION AND SPORTS THERAPY PHYSICAL THERAPY TREATMENT NOTE ASSESSMENT: Bianca Delarosa tolerated the session with fatigue, expected muscle soreness, and noissues. He demonstrated improvements in exercise tolerance. The [...] provided an update on his condition and planof care reviewed. 1:1 throughout) 2: seated R [...] : 800 Session Stop Time : 830 Karla Patel PT * Karla Patel PT - 08/05/2024 8:31 AM EDT Program_ID:[id number] Access Code: [email or web address] URL: [email or web address] Date: 08-05-2024 Prepared By: Karla Patel Program Notes Exercises - Standing Shoulder [...] sets - 1 reps documented in this encounterAdams County Regional Medical Center10-14-2024 NoteC[facility]10-14-[facility] History of Present illness Narrative* Karla Patel PT - 07/22/2024 11:13 AM EDT Images from the original note were not included. Episode Visit Count: 3 Therapist That Will Accept/Oversee The Plan Of Care: Karla Patel PT Start of Care Date: 06/12/24 Onset Date: 05/12/24 Plan of Care Certification Date: 09/25/17 Patient Identified by Name and Date of : Yes REHABILITATION AND SPORTS THERAPY PHYSICAL THERAPY PROGRESS REPORT PLAN OF CARE UPDATE: Assessment: Bianca Delarosa demonstrates moderate improvement in lifting, reaching behind back, and reachingoverhead. The patient has progressed toward goals. Patient continues to present with impairments inADL's, independence in exercise, overall function, range of motion, strength, and symptom management that interfere with reaching behind back, reaching overhead, lifting . Current prognosis is Excelle nt due to: current objective clinical presentation, good overall health status, positive past response to therapy, within-session changes, good support system/ coping skills. The patient will benefitfrom continued skilled therapy services to meet the updated goals for this plan of care as noted below. Updated: 07/22/24 Goals for Episode of Care: established 06/12/24 [place] in [facility] exercise program. - Partially MET, [...] Patient to be seen for Therapeutic exercise (12298), Manual therapy (59211), Self-alf management (19998), Patient/Family/Caregiver Education, Body Mechanics Training PLAN FOR NEXT VISIT: Continue with active therex to address R shoulder pain, ROM, strength and function. Progress to tolerance. SUBJECTIVE: Pt reports that overall his R shoulder is feeling better and less painful. He reports traveling for work recently and when he first arrived in [place], his R shoulder pain was noticeably less. He reports that he was very active when he was in [place] doing a lot of lifting and working very long days(16 hours). As a result, he reports that he has been having increased pain the past several days. He reports that he has not been able to do the HEP for several weeks because he has not had time. He feels that initially his ability with reaching and lifting was improved but his trip outof town for work, set me back. Patient [...] session today, pt reported that his R shojessicaer felt better with improved ROM. PROMIS Scales [...] reaching behind head TREATMENT: Therapeutic Exercise: 1: [employer] UBE seat #8 x5 minutes for ROM [...] Time : 934 Session Stop Time : 1019 Karla Patel PT documented in this encounterAdams County Regional Medical Center09-20-2024 History of Present illness Narrative* Ruby Dexter PTA - 06/28/2024 8:41 AM EDT Program_ID:[id number] Access Code: [email or web address] URL: [email or web address] Date: 06-28-2024 Prepared By: Karla Patel Program Notes Exercises - Standing Shoulder [...] weekly - 2 sets - 10 reps * Karla Patel PT - 06/28/2024 8:07 AM EDT Episode Visit Count: 2 Therapist That Will Accept/Oversee The Plan Of Care: Karla Patel PT Start of Care Date: 06/12/24 [...] 842 TERRY Ye PT documented in this encounterAdams County Regional Medical Center09-20-2024 NoteC[facility]09-09-2024 Telephone encounter Note* Telephone Encounter - Tam Daugherty MA - 06/17/2024 8:35 AM EDT Prescription Refill Information The patient has been [...] Daugherty MA June 17, 2024 8:35 AM [facility]09-09-2024 Miscellaneous Notes* Telephone Encounter - Tam Daugherty MA - 06/17/2024 8:35 AM EDT Prescription Refill Information The patient has been [...] 17, 2024 8:35 AM documented in this encounterAdams County Regional Medical Center09-04-2024 NoteC[facility]09-04-2024 History of Present illness Narrative* Allisonjames Karla, PT - 06/12/2024 9:57 AM EDT Images from the original note were not included. Episode Visit Count: 1 Therapist That Will Accept/Oversee The Plan Of Care: Karla Patel PT Start of Care Date: 06/12/24 [...] Goals for Episode of Care: established 06/12/24 [place] in [place] exercise program. 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 Postural correction [...] : 902 Session Stop Time : 943 Karla Patel PT * Karla Patel, PT - 06/12/2024 9:40 AM EDT Program_ID:[id number] Access Code: [email or web address] URL: [email or web address] Date: 06-12-2024 Prepared By: Karla Patel Program Notes Exercises - Standing Shoulder [...] sets - 10 reps documented in this encounterAdams County Regional Medical Center08-29-2024 NoteC[facility]08-29-2024 History of Present illness Narrative* Dominik Judge APRN.MULTIPLE COIL WINDER - 06/06/2024 7:55 AM EDT Chief Complaint Patient presents with: 6 Month Exam HPI Bianca Delarosa is a 48 year old male who presents here today for Above Complaints.. Patient presents for routine follow up. Patient reports feeling generally fatigued but has no othercomplaints. Past medical history, appointments, medications, allergies reviewed. [...] status migrainosus, not intractable 03/31/2014: Mood disorder ([facility]) 02/27/2018: Multiple thyroid nodules Comment: Seen Dr. Lazaro 03/201802/27/2018: Multiple thyroid nodules Comment: US 03/2020 per radiology no further f/u needed.. All benign Biopsy 03/[address] Lazaro. Benign. 10/21/2022: Obesity, Class II, BMI 35-39.9 01/27/2017: Obstructive sleep apnea syndrome Comment: On CPAP 03/25/2013: Other joint derangement, not elsewhere classified, lower leg 07/28/2020: Primary insomnia 04/20/2021: QT prolongation Comment: Seen [facility] 04/19/2021: [place] to be benign and related to anti-depressants. No changes needed. 03/31/2014: TMJ (temporomandibular joint disorder) Comment: Right side 01/19/2017: Type 2 diabetes mellitus without complication, without long-term current use of insulin ([facility]) 12/17/2014: Well adult exam Comment: [...] 1 capsule by mouth once daily. Insulin Carpio, Disposable, (DROPLET PEN NEEDLE) 31 gauge x /16 Use 4 PEN NEEDLES to inject MEDICATION subcutaneously daily metFORMIN (GLUCOPHAGE) 500 mg tablet Take 2 tablets by mouth two times a day with meals. Blood-Glucose Sensor (FREESTYLE DIANA 3 SENSOR) agnes Use one sensor every 14 day, IDDM, E11.9 zonisamide (ZONEGRAN) 25 mg capsule Take 1 capsule by mouth once daily. CPAP AUTO PAP 5-20 cmH20, CHIN STRAP, heated HUMIDITY, mask of patient's choice. LIFETIME SUPPLIES.SD Card. Download to [employer]. multivitamin tablet Take 1 tablet by mouth [...] Abs Lymph 1.00 - 4.00 k/uL 3.30 [place]% % 4.7 Abs [place] <0.87 k/uL 0.49 [place]% % 1.6 Abs [...] - COMPLETE BLOOD COUNT AND DIFFERENTIAL Dominik Judge APRN.MULTIPLE COIL WINDER documented in this encounterAdams County Regional Medical Center08-20-2024 Telephone encounter Note * Telephone Encounter - Marce Jackson MA - 05/28/2024 10:16 AM EDT Pt notified and verbalized understanding Marce Jackson MA [facility]08-20-2024 Miscellaneous Notes* Telephone Encounter - Marce Jackson MA - 05/28/2024 10:16 AM EDT Pt notified and verbalized understanding Marce Jackson MA * Telephone Encounter - Emma Martínez RN - 05/27/2024 9:27 AM EDT Called and left a voicemail for the Patient to call back and ask for a nurse to receive the providers message. Emma Martínez RN * Telephone Encounter - Dominik Judge APRN.CNP - 05/27/2024 8:17 AM EDT Please let patient know their xray is normal. documented in this encounterAdams County Regional Medical Center08-19-2024 Telephone encounter Note * Telephone Encounter - Emma Martínez RN - 05/27/2024 9:27 AM EDT Called and left a voicemail for the Patient to call back and ask for a nurse to receive the providers message. Emma Martínez RN [facility]08-19-2024 Telephone encounter Note* Telephone Encounter - Dominik Judge APRN.CNP - 05/27/2024 8:17 AM EDT Please let patient know their xray is normal. [facility] Work Phone: 1(230) 564-315008-13-2024 History of Present illness Narrative* Eri Narayan, RT(R) - 05/21/2024 4:20 PM EDT Radiology Service Progress Note PATIENT NAME: Bianca [...] PATIENT PRESENTS WITH AN IMPLANTABLE OR ATTACHED SUMO WRESTLER: No RADIOLOGY DEPARTMENT: General X-ray: Exam(s) Completed: Upper Extremity X- Ray(s): Shoulder, AP / TRUE AP right Scapular Y view PERIPHERAL IV DATA: Not applicable SIGNED BY: Eri Narayan RT(R) May 21, 2024 4:16 PM documented in this encounterAdams County Regional Medical Center08-13-2024 NoteC[facility]08-13-2024 NoteC[facility]08-13-2024 History of Present illness Narrative* Dominik Judge APRN.MULTIPLE COIL WINDER - 05/21/2024 3:50 PM EDT Chief Complaint Patient presents with: Arm Pain [...] Primary insomnia 04/20/2021: QT prolongation Comment: Seen [facility] 04/19/2021: [place] to be benign and related to anti-depressants. No changes needed. 03/31/2014: TMJ (temporomandibular joint disorder) Comment: Right side 01/19/2017: Type 2 diabetes mellitus without complication, without long-term current use of insulin ([facility]) 12/17/2014: Well adult exam Comment: Last done:11/16/2019 Previous Surgical History PAST SURGICAL HISTORY 2004: APPENDECTOMY HX 04/2021: ARTHROTOMY W/MENISCUS REPAIR KNEE; Right 06/2012: COLONOSCOPY Comment: Dr. Corrgian +polyp, repeat 5 yrs 08/30/2022: COLONOSCOPY Comment: [...] 1 capsule by mouth once daily. Insulin Carpio, Disposable, (DROPLET PEN NEEDLE) 31 gauge x 3/16 Use 4 PEN NEEDLES to inject MEDICATION subcutaneously daily metFORMIN (GLUCOPHAGE) 500 mg tablet Take 2 tablets by mouth two times a day with meals. Blood-Glucose Sensor (FREESTYLE DIANA 3 SENSOR) agnes Use one sensor every 14 day, IDDM, E11.9 zonisamide (ZONEGRAN) 25 mg capsule Take 1 capsule by mouth once daily. CPAP AUTO PAP 5-20 cmH20, CHIN STRAP, heated HUMIDITY, mask of patient's choice. LIFETIME SUPPLIES.SD Card. Download to [employer]. multivitamin tablet Take 1 tablet by mouth [...] RIGHT - CONSULT TO PHYSICAL THERAPY Dominik Judge APRN.MULTIPLE COIL WINDER documented in this encounterAdams County Regional Medical Center08-13-2024 Telephone encounter Note * Telephone Encounter - Alma Pitts RN - 05/21/2024 12:22 PM EDT Patient calls for arm/shoulder pain with movement/stretching [...] activities (e.g., work or school) or awakens fromsleep. 4. WORK OR EXERCISE: No recent work or exercise that involved this part of the body that patient can think of. 5. CAUSE: Patient is not really certain. 6. OTHER SYMPTOMS: Pain extends a little into neck. No swelling, rash, fever, numbness, weakness. Protocols used: Arm [id number]-AB [facility]08-13-2024 Miscellaneous Notes* Telephone Encounter - Alma Pitts RN - 05/21/2024 12:22 PM EDT Patient calls for arm/shoulder pain with movement/stretching [...] activities (e.g., work or school) or awakens fromsleep. 4. WORK OR EXERCISE: No recent work or exercise that involved this part of the body that patient can think of. 5. CAUSE: Patient is not really certain. 6. OTHER SYMPTOMS: Pain extends a little into neck. No swelling, rash, fever, numbness, weakness. Protocols used: Arm [id number] * Telephone Encounter - Juhi Murillo RN - 05/21/2024 12:12 PM EDT TC patient, left message for patient to call back and speak with a triage nurse regarding patient'ssymptoms. Patient had requested appointment for pain in right arm and shoulder/tired all the time. Juhi Murillo RN documented in this encounterAdams County Regional Medical Center08-13-2024 Telephone encounter Note * Telephone Encounter - Juhi Murillo RN - 05/21/2024 12:16 PM EDT See Nurse triage note; TC patient, left message for patient to call back and speak with a triage nurse regarding patient'ssymptoms. Patient had requested appointment for pain in right arm and shoulder/tired all the time. Juhi Murillo RN [facility]08-13-2024 Miscellaneous Notes* Telephone Encounter - Juhi Murillo RN - 05/21/2024 12:16 PM EDT See Nurse triage note; TC patient, left message for patient to call back and speak with a triage nurse regarding patient'ssymptoms. Patient had requested appointment for pain in right arm and shoulder/tired all the time. Juhi Murillo RN documented in this encounterAdams County Regional [facility] Center08-13-2024 Telephone encounter Note * Telephone Encounter - Juhi Murillo RN - 05/21/2024 12:12 PM EDT TC patient, left message for patient to call back and speak with a triage nurse regarding patient'ssymptoms. Patient had requested appointment for pain in right arm and shoulder/tired all the time. Juhi Murillo RN [facility]08-05-2024 Telephone encounter Note* Telephone Encounter - Humberto Jackson MD - 05/13/2024 1:12 PM EDT The following approved medication requests have been transmitted electronically. Requested Prescriptions Signed Prescriptions Disp Refills methylphenidate CD (METADATE CD) 10 mg biphasic capsule 30 capsule 0 Sig: Take 1 capsule by mouth once daily for 30 days. Authorizing Provider: HUMBERTO JACKSON MD PDMP website checked and validated. All prescriptions have been APPROPRIATELY filled. No suspiciousactivity was identified. 05/13/2024 by Humberto Jackson MD [facility]08-05-2024 Miscellaneous Notes* Telephone Encounter - Humberto Jackson MD - 05/13/2024 1:12 PM EDT The following approved medication requests have been transmitted electronically. Requested Prescriptions Signed Prescriptions Disp Refills methylphenidate CD (METADATE CD) 10 mg biphasic capsule 30 capsule 0 Sig: Take 1 capsule by mouth once daily for 30 days. Authorizing Provider: HUMBERTO JACKSON MD PDMP website checked and validated. All prescriptions have been APPROPRIATELY filled. No suspiciousactivity was identified. 05/13/2024 by Humberto Jackson MD * Telephone Encounter - Tam Daugherty MA - 05/13/2024 12:42 PM EDT Prescription Refill Information The patient has been [...] 13, 2024 12:43 PM documented in this encounterAdams County Regional Medical Center08-05-2024 Telephone encounter Note * Telephone Encounter - Tam Daugherty MA - 05/13/2024 12:42 PM EDT Prescription Refill Information The patient has been [...] Daugherty MA May 13, 2024 12:43 PM [facility]06-04-2024 History of Present illness Narrative* Natalie Benedict LPN - 03/12/2024 6:38 PM EDT Scan on 03/12/2024 2:26 PM by Carmenza Daley PA-C: Miscellaneous Procedures documented in this encounterAdams County Regional Medical Center06-03-2024 History of Present illness Narrative* Tam Daugherty MA - 03/11/2024 3:55 PM EDT Scan on 03/10/2024 2:56 PM by Carmenza Daley PA-C: Miscellaneous Procedures Scan on 03/10/2024 2:58 PM by Carmenza Daley PA-C: Miscellaneous Procedures Scan on 03/10/2024 7:39 PM by Carmenza Daley PA-C: Miscellaneous Procedures Tam Daugherty MA documented in this encounterAdams County Regional [facility] Center05-22-2024 Telephone encounter Note * Telephone Encounter - Jacob Prado Jr., MD - 02/28/2024 9:42 AM EDT Kasia Mr. Delarosa Your molecular testing is benign and I advise repeat the ultrasound with your PCP in one year. Jacob Prado Junior, MD [facility] Work Phone: [phone]) [phone] Miscellaneous Notes* Telephone Encounter - Jacob Prado Jr., MD - 02/28/2024 9:42 AM EDT Tessielo Mr. Delarosa Your molecular testing is benign and I advise repeat the ultrasound with your PCP in one year. Jacob Prado Junior, MD documented in this encounterAdams County Regional [facility] Center05-22-2024 Telephone encounter Note * Telephone Encounter - Lorena Guthrie MA - 02/28/2024 9:22 AM EDT Scan on 02/27/2024 4:49 PM by Provider, External, PA-C: Afirma Report 02/27/24 Received fax today with patients Afirma results, routed to Dr. Prado for review. [facility]05-22-2024 Miscellaneous Notes* Telephone Encounter - Lorena Guthrie MA - 02/28/2024 9:22 AM EDT Scan on 02/27/2024 4:49 PM by Provider, External, PA-C: Afirma Report 02/27/24 Received fax today with patients Afirma results, routed to Dr. Prado for review. documented in this encounterAdams County [facility] Center05-18-2024 Telephone encounter Note * Telephone Encounter - Humberto Jackson MD - 02/24/2024 10:01 AM EDT The following approved medication requests have been transmitted electronically. Requested Prescriptions Signed Prescriptions Disp Refills methylphenidate CD (METADATE CD) 10 mg biphasic capsule 30 capsule 0 Sig: Take 1 capsule by mouth once daily for 30 days. Authorizing Provider: HUMBERTO JACKSON MD PDMP website checked and validated. All prescriptions have been APPROPRIATELY filled. No suspiciousactivity was identified. 02/24/2024 by Humberto Jackson MD [facility]05-18-2024 Miscellaneous Notes* Telephone Encounter - Humberto Jackson MD - 02/24/2024 10:01 AM EDT The following approved medication requests have been transmitted electronically. Requested Prescriptions Signed Prescriptions Disp Refills methylphenidate CD (METADATE CD) 10 mg biphasic capsule 30 capsule 0 Sig: Take 1 capsule by mouth once daily for 30 days. Authorizing Provider: HUMBERTO JACKSON MD PDMP website checked and validated. All prescriptions have been APPROPRIATELY filled. No suspiciousactivity was identified. 02/24/2024 by Humberto Jackson MD * Telephone Encounter - Tia Ibarra MA - 02/24/2024 9:19 AM EDT Patient has been identified by name and [...] you. Tia Ibarra MA. documented in this encounterAdams County [facility] Center05-18-2024 Telephone encounter Note * Telephone Encounter - Tia Ibarra MA - 02/24/2024 9:19 AM EDT Patient has been identified by name and [...] Please advise. Thank you. Tia Ibarra MA. [facility]05-08-2024 Telephone encounter Note* Telephone Encounter - Jacob Prado Jr., MD - 02/14/2024 11:56 AM EDT Called patient to discuss AFIRMA results. Nodule is benign and I recommend US in one year. Jacob Prado Junior, MD [facility] Work Phone: 1(698) 265-757505-08-2024 Miscellaneous Notes* Telephone Encounter - Jacob Prado Jr., MD - 02/14/2024 11:56 AM EDT Called patient to discuss AFIRMA results. Nodule is benign and I recommend US in one year. Jacob Prado Junior, MD * Telephone Encounter - Janett Velasco LPN - 02/13/2024 10:37 AM EDT Afirma results from 01/31/24 received. File Link Scan on 02/12/2024 9:55 PM by Provider, External, PA-C: Miscellaneous Lab Janett Velasco LPN documented in this encounterAdams [facility]05-07[facility] Telephone encounter Note * Telephone Encounter - Janett Velasco LPN - 02/13/2024 10:37 AM EDT Afirma results from 01/31/24 received. File Link Scan on 02/12/2024 9:55 PM by Provider, External, PAGregorioC: Miscellaneous Lab Janett Velasco LPN [facility]04-24-2024 History of Present illness Narrative* Jacob Prado Jr., MD - 01/31/2024 2:20 PM EDT Jacob prado Jr, M.D. Department of Endocrine Surgery Endocrinology [place] [address] ENDOCRINE SURGERY NEW PATIENT VISIT NAME: Bianca Delarosa CLINIC NO: [id number] : 1975 History of Present Illness: Bianca [...] Discussion: Completed ASSESSMENT and PLAN: In summary, Biacna Delarosa has one nodule with FNA indication. Will discuss the results in 5-10days. I appreciate being involved in the care of your patient, and please feel free to contact me should you have additional questions. Sincerely, Jacob prado Jr, M.D. Clinical Associate Endocrine Surgery [facility] documented in this encounterAdams [facility]04-17-2024 Miscellaneous Notes* Telephone Encounter - Humberto Jackson MD - 01/24/2024 3:44 PM EDT The following approved medication requests have been transmitted electronically. Requested Prescriptions Signed Prescriptions Disp Refills methylphenidate CD (METADATE CD) 10 mg biphasic capsule 30 capsule 0 Sig: Take 1 capsule by mouth once daily for 30 days. Authorizing Provider: HUMBERTO JACKSON MD PDMP website checked and validated. All prescriptions have been APPROPRIATELY filled. No suspiciousactivity was identified. 01/24/2024 by Humberto Jackson MD * Telephone Encounter - Guzman Renteria LPN - 01/24/2024 9:27 AM EDT Patient has been identified by name and [...] you. Guzman Renteria LPN. documented in this encounterAdams [facility] Center04-17-2024 Miscellaneous Notes* Telephone Encounter - Joycelyn Ricardo - 01/24/2024 3:05 PM EDT Unable to schedule with Endo Surgery. Transferred patient to the intake nurse per the EMQ at [phone] * Telephone Encounter - Torres Monaco APRN.CNP - 01/24/2024 11:08 AM EDT Please contact patient to schedule with Endocrine surgery due to increase growth of thyroid nodules. Thank you documented in this encounterAdams [facility] Center04-10-2024 Miscellaneous Notes* Telephone Encounter - Aneta Calvin RN - 01/17/2024 10:11 AM EDT Received a message to re-send for a [...] advise. Aneta Calvin, RN documented in this encounterAdams County [facility] Medical Center04-10-2024 Instructions* Patient Instructions* Torres Monaco APRN.CHRISTOPHER - 01/17/2024 8:18 AM [...] in 2 wks to look at the diana Have thyroid ultrasound done Follow up in 3 months Torres Monaco, MSN, JAVA MANAGER, ORACLE SPECIALIST-C, CDE Endocrinology [facility] Medical Office [facility]/[address], [address] [place] [address] Fax: documented in this encounterAdams County [facility] Medical Center04-10-2024 History of Present illness Narrative* Torres Monaco APRN.CNP - 01/17/2024 8:00 AM EDT Reason for Consultation: DM [...] thyroid nodules, MIKE, obesity 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 Unable to take in supplies to monitor his BG at lunch though he did start CGM which was allowed. Changed to mixed insulin to alleviate the issue of needing insulin at work during lunch however hisA1C is not at goal. Switched to basal/bolus last visit. States BG was looking better until his birthday in December and has not been able to get it under control since. Taking insulin properly and denies missing doses. He does skip the lunch dose of humalog on work days as he cannot take supplies into the skilled nursing but tries to consume a low carb [...] Bianca is checking his blood glucose with Diana 3 He did does bring a logbook today for review: Diana download (01/03/24 to 01/16/24) In target 0% [...] proton pump inhibitor 09/26/2018 Diabetic eye exam ([facility]) 01/27/2017 Last eye exam: 03/05/2019 [...] disorder with single episode, in partial remission ([facility]) 09/26/2018 Migraine without aura and without status migrainosus, not intractable 09/11/2015 Mood disorder ([facility]) 03/31/2014 Multiple thyroid nodules 02/27/[address] Lazaro 03/2018 Multiple thyroid nodules 02/27/2018 US 03/2020 per radiology no further f/u needed.. All benign Biopsy 03/[address] Lazaro. Benign. Obesity, Class II, BMI 35-39.9 10/21/2022 Obstructive sleep apnea syndrome 01/27/2017 On CPAP Other joint derangement, not elsewhere classified, lower leg 03/25/2013 Primary insomnia 07/28/2020 QT prolongation 04/20/2021 [facility] 04/19/2021: [place] to be benign and related to anti- depressants. No changes needed. TMJ (temporomandibular joint disorder) 03/31/2014 Right side Type 2 diabetes mellitus without complication, without long-term current use of insulin ([facility]) 01/19/2017 Well adult exam 12/17/2014 [...] 100 unit/mL injection Inject 50 Units subcutaneously dailyat bedtime. 15 Each 11 Insulin Carpio, Disposable, (DROPLET PEN NEEDLE) 31 gauge x 3/16 Use 4 PEN NEEDLES to inject MEDICATION subcutaneously daily 400 Each 3 metFORMIN (GLUCOPHAGE) 500 mg tablet Take 2 tablets by mouth two times a day with meals. 360 tablet3 Blood-Glucose Sensor (FREESTYLE DIANA 3 SENSOR) agnes Use one sensor every 14 day, IDDM, E11.9 2 Each 11 zonisamide (ZONEGRAN) 25 mg capsule Take 1 capsule by mouth once daily. 90 capsule 1 multivitamin tablet Take 1 tablet by mouth once daily. 0 CPAP AUTO PAP 5-20 cmH20, CHIN STRAP, heated HUMIDITY, mask of patient's choice. LIFETIME SUPPLIES.SD Card. Download to [employer]. (Patient not taking: Reported on 10/20/2023) 1 [...] diagnosis) Comment: Glycemic control is poor. Per diana he is running higher then A1C indicates. [...] in 2 wks to look at the diana Follow up in 3 months (E78.5) Dyslipidemia Comment/Plan: Managed per PCP; he is on a statin and fibrate. (E04.2) Multiple thyroid nodules Comment/Plan: Repeat ultrasound and TFT--previously ordered. (E66.9) Obesity, Class II, BMI 35-39.9 Comment/Plan: Body mass index is 38.18 kg/m . Medical Decision Making: Level: 4 - Moderate Torres Monaco, MSN, JAVA MANAGER, ORACLE SPECIALIST-C, CDE Endocrinology [facility] Medical Office [facility]/[address], [address] [place] [address] Fax: documented in this [facility]04-10-2024 Procedure note* Regina Parrish MA - 01/17/2024 8:00 AM EDTProcedure(s): EXTERNAL PERSONAL DEVELOPMENT MENTOR, CGM SYS Images from the original note were not included. documented in this [facility]03-09-2024 Miscellaneous Notes* Telephone Encounter - Humberto Jackson MD - 12/16/2023 9:25 AM EST The following approved medication requests have been transmitted electronically. Requested Prescriptions Signed Prescriptions Disp Refills methylphenidate CD (METADATE CD) 10 mg biphasic capsule 30 capsule 0 Sig: Take 1 capsule by mouth once daily for 30 days. Humberto Jackson MD * Telephone Encounter - Ezra Stein LPN - 12/16/2023 8:31 AM EST Please see pt's message. Ezra Stein LPN documented in this [facility]03-08-2024 Miscellaneous Notes* Telephone Encounter - Ezra Stein LPN - 12/15/2023 12:54 PM EST Pt notified of same and will contact pharmacy. Ezra Stein LPN * Telephone Encounter - Kenyatta Castaneda PA-C - 12/15/2023 12:47 PM EST The prescription was sent on 12/06 with fill date of 12/07/23. Patient needs to contact pharmacy, Kenyatta Castaneda PA-C * Telephone Encounter - Ezra Stein LPN - 12/15/2023 10:23 AM EST Please see pt's message regarding refill of Ritalin. Pt saw you 12/06/23. Ezra Stein LPN documented in this encounterAdams County [facility] Medical Center02-29-2024 Miscellaneous Notes* Telephone Encounter - Humberto Jackson MD - 12/07/2023 8:20 PM EST The following approved medication requests have been transmitted electronically. Requested Prescriptions Signed Prescriptions Disp Refills atorvastatin (LIPITOR) 40 mg tablet 90 tablet 1 Sig: Take 1 tablet by mouth once daily. Authorizing Provider: HUMBERTO JACKSON MD * Telephone Encounter - Dannielle Herr - 12/07/2023 3:53 PM EST Patient informed and agrees to increase of Lipitor. Please send to [facility] in [place]. Patient inquired about his Ritalin. States someone at the hospital removed this from his med list. Inquiring about being put back on it? Advise. Dannielle Herr * Telephone Encounter - Humberto Jackson MD - 12/07/2023 3:42 PM EST Let patient know his lipid panel showed Trigs elevated at 325 (goal<150), HDL low at 29 (goal>40) and LDL slightly elevated at 106 (goal<100). I would like to increase the lipitor to 40 mg aday. If ok will send in a new script. The rest of his labs and UA were ok. documented in this encounterAdams County Regional Medical Center02-28-2024 History of Present illness Narrative* Humberto Jackson MD - 12/06/2023 8:40 AM EST Chief Complaint Patient presents with: Physical HPI [...] message left by PSS. Patient sent a refillrequest and was given one month. Patient was [...] Primary insomnia 07/28/2020 QT prolongation 04/20/2021 Seen [facility] 04/19/2021: [place] to be benign and related to anti- depressants. No changes needed. TMJ (temporomandibular joint disorder) 03/31/2014 Right side Type 2 diabetes mellitus without complication, without long-term current use of insulin ([facility]) 01/19/2017 Well adult exam 12/17/2014 [...] 100 unit/mL injection Inject 50 Units subcutaneously dailyat bedtime. Insulin Carpio, Disposable, (DROPLET PEN NEEDLE) 31 gauge x 3/16 Use 4 PEN NEEDLES to inject MEDICATION subcutaneously daily metFORMIN (GLUCOPHAGE) 500 mg tablet Take 2 tablets by mouth two times a day with meals. Blood-Glucose Sensor (SanghviYLE DIANA 3 SENSOR) agnes Use one sensor every [...] patient's choice. LIFETIME SUPPLIES.SD Card. Download to [employer]. (Patient not taking: Reported on 10/20/2023) multivitamin [...] Abs Lymph 1.00 - 4.00 k/uL 3.15 [place]% % 6.7 Abs [place] <0.87 k/uL 0.57 Eosin% % 1.4 Abs [...] Negative Negative Ketones, Urine Negative Negative Specific [place], Ur 1.005 - 1.030 1.010 Hemoglobin/Blood,Ur Negative [...] BMI 37.49 kg/(m^2) - Patient was counseled [id number] by myself (the billing provider) for the [...] remission (HCC) - ICD9: 296.25, ICD10:F32.4 - stable with meds. 10. Attention 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 - ICD9: 314.00, ICD10: F98.8 - stable - cont Tx. PDMP website checked and validated. All prescriptions have been APPROPRIATELY filled. No suspiciousactivity was identified. 12/07/2023 by Humberto Jackson MD [...] immunization - ICD9: V03.89, ICD10: Z23 - PFIZER-BIONTECH COVID-19 VACCINE ( [place]) AGE 12+ YR: [...] routine Humberto Jackson MD documented in this encounterAdams County Regional Medical Center02-23-2024 Miscellaneous Notes* Telephone Encounter - Janel Dumont RN - 12/01/2023 3:25 PM EST STACY Isaac called multiple lines to through at [employer]. [employer] approved the [employer] diana 3 sensors and he last filled on 11/25/23. Closed * Telephone Encounter - Gwen Herbert Ma - 10/19/2023 10:27 AM EST Faxed Appeal letter and last office note to [employer] DICKINSON at [phone] transmission ok Keep open * Telephone Encounter - Torres Monaco APRN.CNP - 10/18/2023 2:18 PM EST Rx sent They would not allow consideration of the appeal letter I wrote earlier today? * Telephone Encounter - Gwen Herbert Ma - 10/18/2023 1:18 PM EST Insurance requesting refills as follows: We need to send a new RX for the sensors and then complete PA. Requested Prescriptions Pending Prescriptions Disp Refills Blood-Glucose Sensor (FREESTYLE DIANA 3 SENSOR) agnes 2 Each 11 Sig: Use one sensor every 14 day, IDDM, E11.9 Please review and advise. Gwen Herbert Ma * Telephone Encounter - Berkley King - 10/13/2023 3:30 PM EST Spoke with patient moved patient to a new slot 11-18-2023. Please advise * Telephone Encounter - Torres Monaco APRN.CNP - 10/13/2023 12:40 PM EST See message below. Needs to be seen sooner to address issues for diana. Thank you * Telephone Encounter - Janel Dumont RN - 10/13/2023 10:58 AM EST We received a DENIAL for the FreeStyle Diana 3 Sensors from Secretary ([employer]) Reference # [id number] Reason: We denied your request because we did not see what we need to approve the devise supplies you askedfor, (FreeStyle Diana 3 sensor). We may be able to [...] of patient to reschedule for this month? * Telephone Encounter - Torres Monaco APRN.CHRISTOPHER - 10/10/2023 7:49 AM EST I cannot attest to those statements based on the last A1C but he is due to repeat it. He cancelled his appt for today 10/10/23. Next visit is scheduled for 12/01/23 which is past the 45 day response time needed. Please have him schedule for sometime this month instead. Ok to use a new slot if needed. Thank you * Telephone Encounter - Aneta Calvin RN - 10/03/2023 12:58 PM EST Received a faxed notification back from [employer]NORB[employer] ([employer]) that they are requiring additionalinformation to be sent in order to process [...] receipt of this letter (10/03/23 received). REF# [id number] Call [employer] once we have the updated information at [phone] to initiate, and they will likely supply a fax to send it to in order to process. Torres, Patients last OV and A1C was in 06/2023 when he was started on the Diana 3. He does not have anothervisit until 10/10/23. * Telephone Encounter - Aneta Calvin RN - 10/03/2023 11:33 AM EST Completed PA via CMM for RX Freestyle Diana 3 Sensors. Will await approval / denial. BIANCA DELAROSA (Bland: [id number]) PA Need Help? Call us at Status sent iconSent to Plan today Drug FreeStyle Diana 3 Sensor ePA cloud logo Form [facility] Electronic PA Form (2016 [facility]) documented in this encounterAdams County Regional Medical Center12-04-2023 Miscellaneous Notes* Telephone Encounter - Aneta Calvin RN - 09/11/2023 2:45 PM EST Received a faxed notification from [employer] that patient has been APPROVED FOR MOUNJARO 2.5 MG / 0.5 MG. REF# [id number] Closed. * Telephone Encounter - Janel Dumont RN - 09/11/2023 11:27 AM EST Received notification from [employer] that they denied [...] hyperglycemia. Refaxed the last office notes to [phone] (12 pages) Transmission Okx2 Faxed [phone] Transmission Okx2 * Telephone Encounter - Aneta Calvin RN - 09/06/2023 11:06 AM EST Prior Authorization: Medication/Dose: Mounjaro 2.5 mg/0.5 mL Diagnosis: Type 2 DM E11.9 Provider: Joselyn Completed Via: over the phone ([employer]) Pending PA REF# [id number] Insurance: [employer]/BS Pharmacy: [facility] Notes: Spoke to sales service representative Sumaya at [facility] and completed clinical questionnaire over the phone. Will receive notification of outcome within 5 business days via fax. Also faxed last clinical office note to [phone]. Transmission ok X2. 12 pages. documented in this encounterAdams County Regional Medical Center11-16-2023 Miscellaneous Notes* Telephone Encounter - Marlin Carey MA - 08/24/2023 1:37 PM EST Patient phones requesting refills as follows: Script qty adjusted to the proper number. Patient uses 2 a day. Requested Prescriptions Pending Prescriptions Disp Refills Insulin Carpio, Disposable, (DROPLET PEN NEEDLE) 31 gauge x 3/16 200 Each 3 Sig: Use 2 PEN NEEDLES to inject MEDICATION subcutaneously daily Please review and advise. Marlin Carey MA documented in this encounterAdams County Regional Medical Center11-06-2023 Miscellaneous Notes* Telephone Encounter - Marce Jackson Cma - 08/14/2023 9:57 AM EST Left message for patient to return call to office Marce Jackson Cma * Telephone Encounter - Dominik Judge APRN.CNP - 08/14/2023 8:45 AM EST Please let patient know labs are stable. Lipid panel has improved. Patient should continue current medications. documented in this encounterAdams County Regional Medical Center10-09-2023 Miscellaneous Notes* Telephone Encounter - Janel Dumont RN - 07/17/2023 9:18 AM EDT Please review and advise. documented in this encounterAdams County Regional Medical Center08-28-2023 Miscellaneous Notes* Telephone Encounter - Humberto Jackson MD - 06/05/2023 10:00 AM EDT The following approved medication requests have been transmitted electronically. Requested Prescriptions Signed Prescriptions Disp Refills methylphenidate LA (RITALIN LA) 10 mg biphasic capsule 30 capsule 0 Sig: Take 1 capsule by mouth once daily for 30 days. Authorizing Provider: HUMBERTO JACKSON MD PDMP website checked and validated. All prescriptions have been APPROPRIATELY filled. No suspiciousactivity was identified. 06/05/2023 by Humberto Jackson MD * Telephone Encounter - Tam Daugherty MA - 06/05/2023 9:02 AM EDT Patient has been identified by name and date of : Yes Requested Prescriptions Pending Prescriptions Disp Refills methylphenidate LA (RITALIN LA) 10 mg biphasic capsule 30 capsule 0 Sig: Take 1 capsule by mouth once daily for 30 days. RX INSTRUCTIONS: Patient aware RX will be sent to pharmacy. No need to notify patient. Tam Daugherty MA [facility] 04/2023 Nov 08/2023 Last refill: 03/2023 documented in this encounterAdams County Regional Medical Center07-08-2023 Procedure [facility]07-07-2023 Discharge summary Author Jil Scott [facility] April 14, 2023 5:06pm Note Date/Time April 14, 2023 2:10p m [facility] Medical Records Department [address] [place] [address] Emergency Department Summary 04/14/23 MR#: [id number] Acct: [id number] Name: BIANCA DELAROSA Rep #:[id number] : 1975 47 From: Jil CLAY PCP: Dr. Humberto Jackson MD Status:REG [facility] Location: [facility] AC-TB A-2 HPI <DANNA [...] week because his arm sensor fell off. PFS <DANNA Welch - Last Filed: 04/14/23 17:06> [facility] Medical History (Updated 04/14/23 @ 17:03 by [...] Method Room Air Room Air Room Air [facility] <DANNA Welch - Last Filed: 04/14/23 17:06> [facility] Narrative Medical decision making narrative: History gathered [...] (Auto) 73.5 H Lymph % (Auto) 19.3 [place] % (Auto) 5.8 Eos % (Auto) 0.6 [...] Merchant, DO - Last Filed: 04/14/23 15:59> [facility] Narrative Medical decision making narrative: History gathered [...] (Auto) 73.5 H Lymph % (Auto) 19.3 [place] % (Auto) 5.8 Eos % (Auto) 0.6 [...] your Primary Care Provider. Call [facility] ([phone]) or report to the closest Emergency Room. Call 911 if necessary. 04/14/23 1706 <Electronically signed by Jil Scott PA> Cosigner Signature (if applicable): 04/14/23 1559 <Electronically signed by Macey Merchant DO> CC: Dr. Humberto Jackson MD ~ Signed [facility] Work Phone: 1(438) 784-273307-07-2023 History and physical note Author Prince Villanueva [facility] April 14, 2023 5:05pm Note Date/Time April 14, 2023 4:55p [facility] Medical Records Department [address] [place] [address] History & Physical Exam 04/14/23 1651 MR#: [id number] Acct: [id number] Name: BIANCA DELAROSA Rep #:[id number] : 1975 47 From: Prince Blanton PCP: Dr. Humberto Jackson MD Status:[facility] Location: [facility] AC-TB A-2 HPI - General General Date of Service: 04/14/23 HPI Narrative BIANCA DELAROSA, is a 47 M who presents to [facility] ER under direction from his PCP [...] last year and was without remarkable findings. [facility] Medical History (Updated 04/14/23 @ 17:03 by [...] % (Auto) 73.5 H, Lymph % (Auto) 19.3,[place] % (Auto) 5.8, Eos % (Auto) 0.6, [...] and drainage. Charges/Coding Visit Charges Inpatient E&M: 56375 Init Hosp L2 04/14/23 1705 <Electronically signed by Prince Villanueva MD> Cosigner Signature (if applicable): CC: Dr. Humberto Jackson MD; Dr. Prince Villanueva MD~ Signed [facility] Work Phone: 1(267) 149-216707-07-2023 Discharge summary Author Jil Scott [facility] April 14, 2023 5:06pm Note Date/Time April 14, 2023 2:10p m [facility] System Medical Records Department [address] [place] [address] Emergency Department Summary 04/14/23 MR#: [id number] Acct: [id number] Name: BIANCA DELAROSA Rep #:[id number] : 1975 47 From: Jil CLAY PCP: Dr. Humberto Jackson MD Status:REG [facility] Location: [facility]-TB A-2 HPI <DANNA Welch - Last Filed: [...] <DANNA Welch - Last Filed: 04/14/23 17:06> [facility] Medical History (Updated 04/14/23 @ 17:03 by [...] Method Room Air Room Air Room Air [facility] <DANNA Welch - Last Filed: 04/14/23 17:06> [facility] Narrative Medical decision making narrative: History gathered [...] (Auto) 73.5 H Lymph % (Auto) 19.3 [place] % (Auto) 5.8 Eos % (Auto) 0.6 [...] Merchant, DO - Last Filed: 04/14/23 15:59> [facility] MDM Narrative Medical decision making narrative: [...] (Auto) 73.5 H Lymph % (Auto) 19.3 [place] % (Auto) 5.8 Eos % (Auto) 0.6 [...] problems, contact your Primary Care Provider. Call [facility] ([phone]) or report to the closest Emergency Room. Call 911 if necessary. 04/14/23 1709 <Electronically signed by Jil Scott PA> Cosigner Signature (if applicable): 04/14/23 3859 <Electronically signed by Macey Merchant DO> CC: Dr. Humberto Jackson MD ~ Signed [facility] Work Phone: [phone]) 206-743207-07-2023 History of Present illness Narrative* Dominik Judge APRN.MULTIPLE COIL WINDER - 04/14/2023 1:45 PM EDT Chief Complaint [...] Primary insomnia 07/28/2020 QT prolongation 04/20/2021 Seen [facility] 04/19/2021: [place] to be benign and related to anti- [...] mouth once daily for 30 days. Insulin Carpio, Disposable, (DROPLET PEN NEEDLE) 31 gauge x [...] mouth daily at bedtime. Blood-Glucose Sensor (FREESTYLE DIANA 3 SENSOR) agnes Use one sensor every [...] patient's choice. LIFETIME SUPPLIES.SD Card. Download to [employer]. multivitamin tablet Take 1 tablet by mouth once daily. fluticasone (FLONASE) 50 mcg/actuation nasal spray Use 1 [place] in each nostril once daily. Rinse mouth [...] location and abrupt onset of cyst. Dominik Judge APRN.MULTIPLE COIL WINDER documented in this encounterAdams County Regional Medical Center07-03-2023 Instructions* Patient Instructions* Kenyatta Castaneda PA-C - 04/10/2023 8:31 AM EDT Take a Vitamin B complex (with atleast 30mg of B6) 3 times a day for nocturnal leg cramps. documented in this encounterAdams County Regional Medical Center07-03-2023 History of Present illness Narrative* [...] disorder with single episode, in partial remission ([facility]) 09/26/2018 Migraine without aura and without status migrainosus, not intractable 09/11/2015 Mood disorder ([facility]) 03/31/2014 Multiple thyroid nodules 02/27/[address] Lazaro 03/2018 Multiple thyroid nodules 02/27/2018 US 03/2020 per radiology no further f/u needed.. All benign Biopsy 03/[address] Lazaro. Benign. Obesity, Class II, BMI 35-39.9 10/21/2022 Obstructive sleep apnea syndrome 01/27/2017 On CPAP Other joint derangement, not elsewhere classified, lower leg 03/25/2013 Primary insomnia 07/28/2020 QT prolongation 04/20/2021 Seen [facility] 04/19/2021: [place] to be benign and related to anti- [...] mouth once daily for 30 days. Insulin Carpio, Disposable, (DROPLET PEN NEEDLE) 31 gauge x [...] mouth daily at bedtime. Blood-Glucose Sensor (FREESTYLE DIANA 3 SENSOR) agnes Use one sensor every [...] (FLONASE) 50 mcg/actuation nasal spray Use 1 [place] in each nostril once daily. Rinse mouth after use. esomeprazole (NEXIUM) 40 mg capsule Take 40 mg by mouth once daily. CPAP AUTO PAP 5-20 cmH20, CHIN STRAP, heated HUMIDITY, mask of patient's choice. LIFETIME SUPPLIES.SD Card. Download to [employer]. No current facility-administered medications on file prior [...] Stable. Kenyatta Castaneda PA-C documented in this encounterAdams County Regional [facility] Center06-19-2023 Miscellaneous Notes* Telephone Encounter - [...] Humberto Jackson MD * Telephone Encounter - Ezra Stein LPN - 03/27/2023 12:56 PM EDT Last refill 01/09/23 Qty: 30 with 0 refills HIMA 01/09/23 NOV 04/10/23 Ezra Stein LPN documented in this encounterAdams County Regional Medical Center06-07-2023 Miscellaneous Notes* Telephone Encounter - Janel Dumont RN - 03/15/2023 8:37 AM EDT Requester: Pharmacy Last Visit in Endocrinology: Provider name: Torres Monaco CNP , Date 01/27/2023 Next Scheduled Appt in Endo: 03/14/2023 Last Refill: 06/07/2022 Number of Refills given: 3 Requested Prescriptions Pending Prescriptions Disp Refills Insulin Carpio, Disposable, (DROPLET PEN NEEDLE) 31 gauge x 3/16 [Pharmacy Med Name: DROPLET PEN NEEDLE 31GX3/16] 100 Each 3 Sig: Use 2 PEN NEEDLES to inject MEDICATION subcutaneously daily Please review and advise. Janel Dumont RN documented in this encounterAdams County Regional Medical Center04-21-2023 Instructions* Patient Instructions* Torres Monaco APRN.CHRISTOPHER - 01/27/2023 4:01 PM EDT Continue metformin 2. Humalog 75/25: Breakfast 30 units Dinner 30 units After a few days increase again to: Breakfast 35 units Dinner 35 units 3. Let me know how things are going in 2 wks. 4. Follow up in 3 months. Torres Monaco, MSN, JAVA MANAGER, ORACLE SPECIALIST-C, CDE Endocrinology [facility] Medical Office [facility] [address] Fax: documented in this encounterAdams County Regional Medical Center04-21-2023 Procedure note* Marlin Carey MA - 01/27/2023 3:53 PM EDTProcedure(s): EXTERNAL PERSONAL DEVELOPMENT MENTOR, CGM SYS Images from the original note were not included. 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 Changed to mixed insulin to alleviate the issue. States he is allowed to use a CGM and have his phone--[facility] 3 rx sent at the last visit [...] Bianca is checking his blood glucose with Diana 3 He did does bring a logbook today for review: Diana 13 day download (01/14/23 to 01/27/23) In [...] disorder with single episode, in partial remission ([facility]) 09/26/2018 Migraine without aura and without status migrainosus, not intractable 09/11/2015 Mood disorder ([facility]) 03/31/2014 Multiple thyroid nodules 02/27/2018 [...] prolongation 04/20/2021 Seen [facility] 04/19/2021: [place] to be benign and related to anti- depressants. No changes needed. TMJ (temporomandibular joint disorder) 03/31/2014 Right side Type 2 diabetes mellitus without complication, without long-term current use of insulin ([facility]) 01/19/2017 Well adult exam 12/17/2014 [...] bedtime. 90 capsule 1 Blood-Glucose Sensor (FREESTYLE DIANA 3 SENSOR) agnes Use one sensor every [...] x 30 days) 30 tablet 5 Insulin Carpio, Disposable, (BD ULTRAFINE III MINI PEN) 31 gauge x 3/16 Use two pen needles [id number] Each 3 albuterol HFA (PROAIR HFA) 90 [...] (FLONASE) 50 mcg/actuation nasal spray Use 1 [place] in each nostril once daily. Rinse mouth [...] patient's choice. LIFETIME SUPPLIES.SD Card. Download to [employer]. (Patient not taking: Reported on 01/27/2023) 1 [...] complication, without long-term current use of insulin ([facility]) (primary encounter diagnosis) Comment: Glycemic control is poor. Issues with cost of SGLT1 and GLP1's. Needs to use mixed insulinbecause he cannot take meal insulin into residential he works at. Plan: HEMOGLOBIN A1C (POC), [...] which included preparing to see the patient, [id number] patient care, completing clinical documentation, obtaining and/or reviewing separately obtained history, performing a medically appropriate examination, counseling and educating the pat ient/family/caregiver, ordering medications, tests, or procedures, and communicating results to thepatient/family/caregiver. Torres Monaco, MSN, JAVA MANAGER, ORACLE SPECIALIST-C, CDE Endocrinology [facility] Medical Office [facility]/[address] [place] [address] Fax: documented in this encounterAdams County Regional Medical Center04-03-2023 Instructions* Patient Instructions* Dominik Judge APRN.CNP - 01/09/2023 8:26 AM EDT Continue Ritalin Follow up in 3 months documented in this encounterAdams County Regional Medical Center04-03-2023 History of Present illness Narrative* Dominik Judge APRN.CNP - 01/09/2023 8:21 AM EDT Chief [...] disorder with single episode, in partial remission ([facility]) 09/26/2018 Migraine without aura and without status migrainosus, not intractable 09/11/2015 Mood disorder ([facility]) 03/31/2014 Multiple thyroid nodules 02/27/2018 [...] prolongation 04/20/2021 Seen [facility] 04/19/2021: [place] to be benign and related to anti- [...] daily for 30 days. Blood-Glucose Sensor (FREESTYLE DIANA 3 SENSOR) agnes Use one sensor every [...] taken 3mg daily x 30 days) Insulin Carpio, Disposable, (BD ULTRAFINE III MINI PEN) 31 [...] patient's choice. LIFETIME SUPPLIES.SD Card. Download to [employer]. multivitamin tablet Take 1 tablet by mouth once daily. fluticasone (FLONASE) 50 mcg/actuation nasal spray Use 1 [place] in each nostril once daily. Rinse mouth [...] 10 MG BIPHASIC 50-50 CAPSULE,EXTENDED RELEASE Dominik Judge APRN.MULTIPLE COIL WINDER documented in this encounterAdams County Regional Medical Center03-02-2023 Miscellaneous Notes* Telephone Encounter - [...] diet and increased exercise. documented in this encounterAdams County Regional Medical Center03-01-2023 History of Present illness Narrative* [...] going to try to get transferred to [facility]> Has not worn his CPAP since before [...] disorder with single episode, in partial remission ([facility]) 09/26/2018 Migraine without aura and without status migrainosus, not intractable 09/11/2015 Mood disorder ([facility]) 03/31/2014 Multiple thyroid nodules 02/27/[address] Lazaro 03/2018 Multiple thyroid nodules 02/27/2018 US 03/2020 per radiology no further f/u needed.. All benign Biopsy 03/[address] Lazaro. Benign. Obstructive sleep apnea syndrome 01/27/2017 On CPAP Other joint derangement, not elsewhere classified, lower leg 03/25/2013 Primary insomnia 07/28/2020 QT prolongation 04/20/2021 [facility]: [place] to be benign and related to anti- depressants. No changes needed. TMJ (temporomandibular joint disorder) 03/31/2014 Right side Type 2 diabetes mellitus without complication, without long-term current use of insulin ([facility]) 01/19/2017 Well adult exam 12/17/2014 [...] to Visit Medication Sig Blood-Glucose Sensor (FREESTYLE DIANA 3 SENSOR) agnes Use one sensor every [...] taken 3mg daily x 30 days) Insulin Carpio, Disposable, (BD ULTRAFINE III MINI PEN) 31 [...] patient's choice. LIFETIME SUPPLIES.SD Card. Download to [employer]. multivitamin tablet Take 1 tablet by mouth once daily. fluticasone (FLONASE) 50 mcg/actuation nasal spray Use 1 [place] in each nostril once daily. Rinse mouth [...] Abs Lymph 1.00 - 4.00 k/uL 3.03 [place]% % 6.3 Abs [place] <0.87 k/uL 0.48 [place]% % 1.4 Abs [...] routine Humberto Jackson MD documented in this encounterAdams County Regional Medical Center01-20-2023 Miscellaneous Notes* Telephone Encounter - Gwen Herbert Dc - 10/28/2022 3:34 PM EST Images from the original note were not included. APPROVED Approved [id number] Prior authorization approved Payer: Abdulaziz CLAY Case: [id number], Status: Approved, Coverage Starts on: 10/28/2022 12:00:00 AM, Coverage Ends on: 10/28/2023 12:00:00 AM. Approval Details Authorization number: [id number] Authorized from October 28, 2022 to October [...] to its destination. To be filled at: [id number] [place] [address] - [address] [id number] Pharmacy Benefits BIANCA DELAROSA BB CDH-N [id number] ([facility] [place] Covered: Retail, Mail Order, Specialty Unknown: Long-Term Care Group ID: [id number] Group name[facility] B[facility] [id number] PCN: WG : [id number] Legal sex: M Address: [address] [place] [address] documented in this encounterAdams County Regional Medical Center11-22-2022 Nurse Note* Tami Olsen RN [...] comfortably on left side. documented in this encounterAdams County Regional Medical Center11-22-2022 History and physical note * Johanna Bliss [...] status migrainosus, not intractable 09/11/2015 Mood disorder ([facility]) 03/31/2014 Multiple thyroid nodules 02/27/[address] Lazaro 03/2018 Multiple thyroid nodules 02/27/2018 US 03/2020 per radiology no further f/u needed.. All benign Biopsy 03/2018 Dr. Lazaro. Benign. Obstructive sleep apnea syndrome 01/27/2017 On CPAP Other joint derangement, not elsewhere classified, lower leg 03/25/2013 Primary insomnia 07/28/2020 QT prolongation 04/20/2021 Seen [facility] 04/19/2021: [place] to be benign and related to anti- depressants. No changes needed. TMJ (temporomandibular joint disorder) 03/31/2014 Right side Type 2 diabetes mellitus without complication, without long-term current use of insulin ([facility]) 01/19/2017 Well adult exam 12/17/2014 [...] units breakfast and 25 units dinner Insulin Carpio, Disposable, (BD ULTRAFINE III MINI PEN) 31 [...] (FLONASE) 50 mcg/actuation nasal spray Use 1 [place] in each nostril once daily. Rinse mouth after use. esomeprazole (NEXIUM) 40 mg capsule Take 40 mg by mouth once daily. CPAP AUTO PAP 5-20 cmH20, CHIN STRAP, heated HUMIDITY, mask of patient's choice. LIFETIME SUPPLIES.SD Card. Download to [employer]. (Patient not taking: Reported on 07/22/2022) ALLERGIES: [...] entered by the nurse and reviewed by wv Nursing Notes: Nunu Blackwood RN 07/22/2022 4:32 [...] disorder with single episode, in partial remission ([facility]) 09/26/2018 Migraine without aura and without status migrainosus, not intractable 09/11/2015 Mood disorder ([facility]) 03/31/2014 Multiple thyroid nodules 02/27/[address] Lazaro 03/2018 Multiple thyroid nodules 02/27/2018 US 03/2020 per radiology no further f/u needed.. All benign Biopsy 03/[address] Lazaro. Benign. Obstructive sleep apnea syndrome 01/27/2017 On CPAP Other joint derangement, not elsewhere classified, lower leg 03/25/2013 Primary insomnia 07/28/2020 QT prolongation 04/20/2021 Seen [facility] 04/19/2021: [place] to be benign and related to anti- depressants. No changes needed. TMJ (temporomandibular joint disorder) 03/31/2014 Right side Type 2 diabetes mellitus without complication, without long-term current use of insulin ([facility]) 01/19/2017 Well adult exam 12/17/2014 [...] units breakfast and 25 units dinner Insulin Carpio, Disposable, (BD ULTRAFINE III MINI PEN) 31 [...] (FLONASE) 50 mcg/actuation nasal spray Use 1 [place] in each nostril once daily. Rinse mouth after use. esomeprazole (NEXIUM) 40 mg capsule Take 40 mg by mouth once daily. CPAP AUTO PAP 5-20 cmH20, CHIN STRAP, heated HUMIDITY, mask of patient's choice. LIFETIME SUPPLIES.SD Card. Download to [employer]. (Patient not taking: Reported on 07/22/2022) ALLERGIES: [...] entered by the nurse and reviewed by wv Nursing Notes: Nunu Blackwood RN 07/22/2022 4:32 [...] diagnosis) Johanna Bliss MD documented in this encounterAdams County Regional Medical Center11-09-2022 History of Present illness Narrative* [...] disorder with single episode, in partial remission ([facility]) 09/26/2018 Migraine without aura and without status migrainosus, not intractable 09/11/2015 Mood disorder ([facility]) 03/31/2014 Multiple thyroid nodules 02/27/[address] Lazaro 03/2018 Multiple thyroid nodules 02/27/2018 US 03/2020 per radiology no further f/u needed.. All benign Biopsy 03/[address] Lazaro. Benign. Obstructive sleep apnea syndrome 01/27/2017 On CPAP Other joint derangement, not elsewhere classified, lower leg 03/25/2013 Primary insomnia 07/28/2020 QT prolongation 04/20/2021 [facility]21: [place] to be benign and related to anti- [...] units breakfast and 25 units dinner Insulin Carpio, Disposable, (BD ULTRAFINE III MINI PEN) 31 [...] (FLONASE) 50 mcg/actuation nasal spray Use 1 [place] in each nostril once daily. Rinse mouth after use. esomeprazole (NEXIUM) 40 mg capsule Take 40 mg by mouth once daily. CPAP AUTO PAP 5-20 cmH20, CHIN STRAP, heated HUMIDITY, mask of patient's choice. LIFETIME SUPPLIES.SD Card. Download to [employer]. (Patient not taking: Reported on 07/22/2022) No [...] SURGERY Kenyatta Castaneda PA-C documented in this encounterAdams County Regional Medical Center11-03-2022 History of Present illness Narrative* [...] Low HDL, High Trigs Elevated antinuclear antibody (AJLEEL) level 03/31/2014 Family history of malignant neoplasm of gastrointestinal tract 03/31/2014 ISABELLA (generalized anxiety disorder) 06/22/2020 GERD without esophagitis 09/26/2018 Hiatal hernia 03/31/2014 Hx of colonic polyp 03/31/2014 Needs next colonoscopy 08/2022 Lump 11/16/2019 benign left palm Major depressive disorder with single episode, in partial remission ([facility]) 09/26/2018 Migraine without aura and without status migrainosus, not intractable 09/11/2015 Mood disorder ([facility]) 03/31/2014 Multiple thyroid nodules 02/27/[address] Lazaro 03/2018 Multiple thyroid nodules 02/27/2018 US 03/2020 per radiology no further f/u needed.. All benign Biopsy 03/[address] Lazaro. Benign. Obstructive sleep apnea syndrome 01/27/2017 On CPAP Other joint derangement, not elsewhere classified, lower leg 03/25/2013 Primary insomnia 07/28/2020 QT prolongation 04/20/2021 Seen [facility] 04/19/2021: [place] to be benign and related to anti- depressants. No changes needed. TMJ (temporomandibular joint disorder) 03/31/2014 Right side Type 2 diabetes mellitus without complication, without long-term current use of insulin ([facility]) 01/19/2017 Well adult exam 12/17/2014 [...] units breakfast and 25 units dinner Insulin Carpio, Disposable, (BD ULTRAFINE III MINI PEN) 31 [...] (FLONASE) 50 mcg/actuation nasal spray Use 1 [place] in each nostril once daily. Rinse mouth after use. esomeprazole (NEXIUM) 40 mg capsule Take 40 mg by mouth once daily. CPAP AUTO PAP 5-20 cmH20, CHIN STRAP, heated HUMIDITY, mask of patient's choice. LIFETIME SUPPLIES.SD Card. Download to [employer]. (Patient not taking: Reported on 07/22/2022) No [...] 6 MO - 64 YRS IM - [employer] COVID-19 BIVALENT BOOSTER VACCINE, AGE 12+ YR Kenyatta Castaneda PA-C documented in this encounterAdams County Regional Medical Center10-28-2022 Miscellaneous Notes* Telephone Encounter - Tam Daugherty MA - 08/05/2022 8:04 AM EDT Sarah You scheduled next week for a follow up with your. Patient was seen yesterday in . Tam Daugherty MA documented in this encounterAdams County Regional Medical Center10-27-2022 History of Present illness Narrative* Emma Sheets APRN.MULTIPLE COIL WINDER - 08/04/2022 9:43 AM EDT SUBJECTIVE: Bianca [...] Primary insomnia 07/28/2020 QT prolongation 04/20/2021 Seen [facility] 04/19/2021: [place] to be benign and related to anti- [...] 25 units dinner 15 mL 5 Insulin Carpio, Disposable, (BD ULTRAFINE III MINI PEN) 31 gauge x 3/16 Use two pen needles [id number] Each 3 Fenofibrate (LOFIBRA) 54 mg tablet [...] (FLONASE) 50 mcg/actuation nasal spray Use 1 [place] in each nostril once daily. Rinse mouth after use. 1 Bottle 11 esomeprazole (NEXIUM) 40 mg capsule Take 40 mg by mouth once daily. CPAP AUTO PAP 5-20 cmH20, CHIN STRAP, heated HUMIDITY, mask of patient's choice. LIFETIME SUPPLIES.SD Card. Download to [employer]. (Patient not taking: Reported on 07/22/2022) 1 [...] L02.91 Emma Sheets APRN.CHRISTOPHER documented in this encounterAdams County Regional Medical Center10-12-2022 History of Present illness Narrative* Heather Garcia LPN - 07/20/2022 10:42 AM EDT Patient presents for Hepatitis B vaccine. Denies any problems at this time. Tolerated injection well. Heather Garcia LPN documented in this encounterAdams County Regional Medical Center09-02-2022 History of Present illness Narrative* Heather Garcia LPN - 06/10/2022 3:43 PM EDT Patient presents for Hepatitis B vaccine. Denies any problems at this time. Tolerated injection well. Heather Garcia LPN documented in this encounterAdams County Regional Medical Center08-30-2022 Instructions* Patient Instructions* Torres Monaco APRN.CNP - [...] up in 3 months Torres Monaco, MSN, JAVA MANAGER, ORACLE SPECIALIST-C, CDE Endocrinology [facility] Medical Office [facility]/[address] [place] [address] Fax: documented in this encounterAdams County Regional Medical Center08-30-2022 History of Present illness Narrative* Torres Monaco APRN.MULTIPLE COIL WINDER - 06/07/2022 8:00 AM EDT Reason for [...] thyroid nodules, MIKE, obesity 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 Lazaro 03/2018 Multiple thyroid nodules 02/27/2018 US 03/2020 per radiology no further f/u needed.. All benign Biopsy 03/[address] Lazaro. Benign. Obstructive sleep apnea syndrome 01/27/2017 On CPAP Other joint derangement, not elsewhere classified, lower leg 03/25/2013 Primary insomnia 07/28/2020 QT prolongation 04/20/2021 Seen [facility] 04/19/2021: [place] to be benign and related to anti- depressants. No changes needed. TMJ (temporomandibular joint disorder) 03/31/2014 Right side Type 2 diabetes mellitus without complication, without long-term current use of insulin ([facility]) 01/19/2017 Well adult exam 12/17/2014 [...] daily with breakfast. 90 tablet 3 Insulin Carpio, Disposable, (BD ULTRAFINE III MINI PEN) 31 gauge x 3/16 Use one pen needles Each 3 albuterol HFA (PROAIR [...] (FLONASE) 50 mcg/actuation nasal spray Use 1 [place] in each nostril once daily. Rinse mouth [...] patient's choice. LIFETIME SUPPLIES.SD Card. Download to [employer]. (Patient not taking: No sig reported) 1 [...] complication, without long-term current use of insulin ([facility]) (primary encounter diagnosis) Comment: Glycemic control is poor. SGLT2 and GLP1 are cost prohibitive. He cannot take a prandial insulin into work with him a a residential. Will switch to mixed insulin. We reviewed the timing of injections in relation to meals and when to check BG levels. Advised he is to ensure he is eating when taking the insulin to avoid hypoglycemia. Plan: insulin lispro protamine-insulin lispro (HumaLOG 75/25) pen, Insulin Carpio, Disposable, (BD ULTRAFINE III MINI PEN) 31 [...] Level: 3 - Low Torres Monaco, MSN, JAVA MANAGER, ORACLE SPECIALIST-C, CDE Endocrinology [facility] Office [facility]/[address], [address] [place], [place] [address] Fax: documented in this encounterAdams County Regional Medical Center08-29-2022 Miscellaneous Notes* Telephone Encounter - [...] ok except spilling sugar. documented in this encounterAdams County Regional Medical Center08-27-2022 History of Present illness Narrative* [...] disorder with single episode, in partial remission ([facility]) 09/26/2018 Migraine without aura and without status migrainosus, not intractable 09/11/2015 Mood disorder ([facility]) 03/31/2014 Multiple thyroid nodules 02/27/[address] Lazaro 03/2018 Multiple thyroid nodules 02/27/2018 US 03/2020 per radiology no further f/u needed.. All benign Biopsy 03/[address] Lazaro. Benign. Obstructive sleep apnea syndrome 01/27/2017 On CPAP Other joint derangement, not elsewhere classified, lower leg 03/25/2013 Primary insomnia 07/28/2020 QT prolongation 04/20/2021 [facility]: [place] to be benign and related to anti- depressants. No changes needed. TMJ (temporomandibular joint disorder) 03/31/2014 Right side Type 2 diabetes mellitus without complication, without long-term current use of insulin ([facility]) 01/19/2017 Well adult exam 12/17/2014 Last done:11/16/2019 Previous Surgical History PAST SURGICAL HISTORY Procedure Laterality Date APPENDECTOMY HX 2004 COLONOSCOPY 06/2012 Dr. Corrigan +polyp, repeat 5 yrs COLONOSCOPY FLX DX W/COLLJ SPEC WHEN PFRMD 08/16/2017 Colonoscopy, repeat 5 yrs, Dr. Bliss PAST SURGICAL HISTORY OF 2009 benign cysts: 1 from head and 2 from neck TONSILLECTOMY & ADENOIDECTOMY AGE 111978 Family History FAMILY HISTORY Problem Relation Age [...] tablet by mouth daily with breakfast. Insulin Carpio, Disposable, (BD ULTRAFINE III MINI PEN) 31 gauge x 12/22 Use one pen needles daily albuterol HFA [...] (FLONASE) 50 mcg/actuation nasal spray Use 1 [place] in each nostril once daily. Rinse mouth [...] patient's choice. LIFETIME SUPPLIES.SD Card. Download to [employer]. (Patient not taking: Reported on 03/04/2021 ) [...] routine Humberto Jackson MD documented in this encounterAdams County Regional Medical Center07-21-2022 Miscellaneous Notes* Telephone Encounter - Juhi Murillo [...] advise. Dimple Castellon LPN documented in this encounterAdams County Regional Medical Center07-21-2022 Miscellaneous Notes* Telephone Encounter - Aneta Calvin RN - 04/28/2022 7:49 AM EDT Please review. Patient is referring to Ozempic. documented in this encounterAdams County Regional Medical Center07-20-2022 Miscellaneous Notes* Telephone Encounter - [...] none Tia Ibarra Ma documented in this encounterAdams County Regional Medical Center05-27-2022 Instructions* Patient Instructions* Torres Monaco APRN.[facility] - 03/04/2022 8:42 AM EDT 1. Continue glimepiride, jardiance, metformin. 2. Continue lantus 40 units daily at bedtime. 3. Stop humalog 4. Start ozempic 0.25 mg weekly x 4 wks then increase to 0.5 mg weekly. 5. Follow up in 3 months with labs prior Torres Monaco, MSN, JAVA MANAGER, ORACLE SPECIALIST-C, CDE Endocrinology [facility] Office [facility]/[place] [address] Fax: documented in this encounterAdams County Regional Medical Center05-27-2022 History of Present illness Narrative* Torres Monaco APRN.CNP - 03/04/2022 8:30 AM EDT Reason for Consultation: DM Type 2 Referring Physician: No referring provider defined for this encounter. HISTORY OF PRESENT ILLNESS; Mr. Delarosa is a 46 year old male presenting for follow up regarding DM Type 2. He was initiallydiagnosed with diabetes in 2019. He does not have a family history of diabetes mellitus in his family . 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 Reports always feeling hungry. History in addition to diabetes:dyslipidemia, ISABELLA, GERD, depression, migraine, thyroid nodules, MIKE, obesity He is under the care of cardiology, ortho. Had his knee surgery at [facility]. Walks about a mile per day. Had [...] disorder with single episode, in partial remission ([facility]) 09/26/2018 Migraine without aura and without status migrainosus, not intractable 09/11/2015 Mood disorder ([facility]) 03/31/2014 Multiple thyroid nodules 02/27/[address] Lazaro 03/2018 Multiple thyroid nodules 02/27/2018 US 03/2020 per radiology no further f/u needed.. All benign Biopsy 03/[address] Lazaro. Benign. Obstructive sleep apnea syndrome 01/27/2017 On CPAP Other joint derangement, not elsewhere classified, lower leg 03/25/2013 Primary insomnia 07/28/2020 QT prolongation 04/20/2021 Seen [facility] 04/19/2021: [place] to be benign and related to anti- depressants. No changes needed. TMJ (temporomandibular joint disorder) 03/31/2014 Right side Type 2 diabetes mellitus without complication, without long-term current use of insulin ([facility]) 01/19/2017 Well adult exam 12/17/2014 [...] 35 units daily 45 mL 3 Insulin Carpio, Disposable, (BD ULTRAFINE III MINI PEN) 31 gauge x /16 Use four pen needles daily 400 Each [...] (FLONASE) 50 mcg/actuation nasal spray Use 1 [place] in each nostril once daily. Rinse mouth after use. 1 Bottle 11 esomeprazole (NEXIUM) 40 mg capsule Take 40 mg by mouth once daily. CPAP AUTO PAP 5-20 cmH20, CHIN STRAP, heated HUMIDITY, mask of patient's choice. [employer] SUPPLIES.SD Card. Download to [employer]. (Patient not taking: Reported on 03/04/2021 ) [...] complication, without long-term current use of insulin ([facility]) (primary encounter diagnosis) Comment: Glycemic control has worsened. We were using prandial insulin previously in order to improve his BG so he could have knee surgery which has been done. Will add GLP-1. Risks and benefits reviewed. 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 Patient agrees to start [...] tablet, glimepiride (AMARYL) 4 mg tablet, Insulin Carpio, Disposable, (BD ULTRAFINE III MINI PEN) 31 [...] Level: 4 - Moderate Torres Monaco APRN, ORACLE SPECIALIST-C, CDE Endocrinology [facility] Medical Office [facility]/[address], [address] [place] [address] Fax: documented in [facility] Miscellaneous Notes* Telephone Encounter - [...] advise. Regina Parrish MA documented in this encounterAd[facility]03-30-[facility]22 Miscellaneous Notes* Telephone Encounter - [...] HUMBERTO JACKSON MD * Telephone Encounter - Ezra Stein LPN - 01/05/2022 12:27 PM EDT Last ov 10/15/21 No appointment scheduled Pt canceled and no showed routine f/u appointment. Left vm for pt that he needs to schedule a f/u appointment. Ezra Stein LPN documented in this encounterAd[facility]03-30-2022 Miscellaneous Notes* Telephone Encounter - Ezra Stein LPN - 01/05/2022 12:27 PM EDT Med request was combined with pt's other medication request and sent to pcp. Ezra Stein LPN documented in this [facility]01-07-2022 History of Present illness Narrative* Roro Feliciano, RT(R) - 10/15/2021 8:40 AM EST Radiology [...] 15, 2021 8:32 AM documented in this encounterAd[facility]01-13-[facility] History of Past illness Narrative* Problem Noted Date Resolved Date Joint stiffness of right lower leg 10/21/2020 12/22/2020 Right leg weakness 10/21/2020 12/22/2020 documented as of this encounter (statuses as of 01/05/2022) [facility] of Past illness Narrative* Problem Noted Date Resolved Date Joint stiffness of right lower leg 10/21/2020 12/22/2020 Right leg weakness 10/21/2020 12/22/2020 documented as of this encounter (statuses as of 01/05/2022) [facility] of [facility] illness Narrative* Problem Noted Date Resolved Date Joint stiffness of right lower leg 10/21/2020 12/22/2020 Right leg weakness 10/21/2020 12/22/2020 documented as of this encounter (statuses as of 02/01/2022) [facility] of [facility] illness Narrative* Problem Noted Date Resolved Date Joint stiffness of right lower leg 10/21/2020 12/22/2020 Right leg weakness 10/21/2020 12/22/2020 documented as of this encounter (statuses as of 03/04/2022) [facility] Narrative* Problem Noted Date Resolved Date Joint stiffness of right lower leg 10/21/2020 12/22/2020 Right leg weakness 10/21/2020 12/22/2020 documented as of this encounter (statuses as of 04/28/2022) [facility] Narrative* Problem Noted Date Resolved Date Joint stiffness of right lower leg 10/21/2020 12/22/2020 Right leg weakness 10/21/2020 12/22/2020 documented as of this encounter (statuses as of 04/28/2022) [facility] Narrative* Problem Noted Date Resolved Date Joint stiffness of right lower leg 10/21/2020 12/22/2020 Right leg weakness 10/21/2020 12/22/2020 documented as of this encounter (statuses as of 04/28/2022) [facility] Narrative* Problem Noted Date Resolved Date Joint stiffness of right lower leg 10/21/2020 12/22/2020 Right leg weakness 10/21/2020 12/22/2020 documented as of this encounter (statuses as of 06/05/2022) [facility] Narrative* Problem Noted Date Resolved Date Joint stiffness of right lower leg 10/21/2020 12/22/2020 Right leg weakness 10/21/2020 12/22/2020 documented as of this encounter (statuses as of 06/06/2022) [facility] Narrative* Problem Noted Date Resolved Date Joint stiffness of right lower leg 10/21/2020 12/22/2020 Right leg weakness 10/21/2020 12/22/2020 documented as of this encounter (statuses as of 06/07/2022) [facility] Narrative* Problem Noted Date Resolved Date Joint stiffness of right lower leg 10/21/2020 12/22/2020 Right leg weakness 10/21/2020 12/22/2020 documented as of this encounter (statuses as of 06/10/2022) [address]13-2021 History of Past illness Narrative* Problem Noted Date Resolved Date Joint stiffness of right lower leg 10/21/2020 12/22/2020 Right leg weakness 10/21/2020 12/22/2020 documented as of this encounter (statuses as of 07/20/2022) [facility] Narrative* Problem Noted Date Resolved Date Joint stiffness of right lower leg 10/21/2020 12/22/2020 Right leg weakness 10/21/2020 12/22/2020 documented as of this encounter (statuses as of 08/04/2022) [facility] Narrative* Problem Noted Date Resolved Date Joint stiffness of right lower leg 10/21/2020 12/22/2020 Right leg weakness 10/21/2020 12/22/2020 documented as of this encounter (statuses as of 08/04/2022) [facility] Narrative* Problem Noted Date Resolved Date Joint stiffness of right lower leg 10/21/2020 12/22/2020 Right leg weakness 10/21/2020 12/22/2020 documented as of this encounter (statuses as of 08/05/2022) [facility] Narrative* Problem Noted Date Resolved Date Joint stiffness of right lower leg 10/21/2020 12/22/2020 Right leg weakness 10/21/2020 12/22/2020 documented as of this encounter (statuses as of 08/11/2022) [facility] Narrative* Problem Noted Date Resolved Date Joint stiffness of right lower leg 10/21/2020 12/22/2020 Right leg weakness 10/21/2020 12/22/2020 documented as of this encounter (statuses as of 08/17/2022) [facility] Narrative* Problem Noted Date Resolved Date Joint stiffness of right lower leg 10/21/2020 12/22/2020 Right leg weakness 10/21/2020 12/22/2020 documented as of this encounter (statuses as of 10/28/2022) [facility] Narrative* Problem Noted Date Resolved Date Joint stiffness of right lower leg 10/21/2020 12/22/2020 Right leg weakness 10/21/2020 12/22/2020 documented as of this encounter (statuses as of 12/07/2022) [address]13-2021 History of Past illness Narrative* Problem Noted Date Resolved Date Joint stiffness of right lower leg 10/21/2020 12/22/2020 Right leg weakness 10/21/2020 12/22/2020 documented as of this encounter (statuses as of 12/08/2022) [facility] Narrative* Problem Noted Date Resolved Date Joint stiffness of right lower leg 10/21/2020 12/22/2020 Right leg weakness 10/21/2020 12/22/2020 documented as of this encounter (statuses as of 01/09/2023) [facility] Narrative* Problem Noted Date Resolved Date Joint stiffness of right lower leg 10/21/2020 12/22/2020 Right leg weakness 10/21/2020 12/22/2020 documented as of this encounter (statuses as of 01/28/2023) [facility] Narrative* Problem Noted Date Resolved Date Joint stiffness of right lower leg 10/21/2020 12/22/2020 Right leg weakness 10/21/2020 12/22/2020 documented as of this encounter (statuses as of 03/15/2023) [facility] Narrative* Problem Noted Date Resolved Date Joint stiffness of right lower leg 10/21/2020 12/22/2020 Right leg weakness 10/21/2020 12/22/2020 documented as of this encounter (statuses as of 03/15/2023) [facility] Narrative* Problem Noted Date Resolved Date Joint stiffness of right lower leg 10/21/2020 12/22/2020 Right leg weakness 10/21/2020 12/22/2020 documented as of this encounter (statuses as of 03/28/2023) [facility] Narrative* Problem Noted Date Resolved Date Joint stiffness of right lower leg 10/21/2020 12/22/2020 Right leg weakness 10/21/2020 12/22/2020 documented as of this encounter (statuses as of 04/10/2023) [facility] Narrative* Problem Noted Date Resolved Date Joint stiffness of right lower leg 10/21/2020 12/22/2020 Right leg weakness 10/21/2020 12/22/2020 documented as of this encounter (statuses as of 04/14/2023) [facility] Narrative* Problem Noted Date Resolved Date Joint stiffness of right lower leg 10/21/2020 12/22/2020 Right leg weakness 10/21/2020 12/22/2020 documented as of this encounter (statuses as of 04/14/2023) [facility] Narrative* Problem Noted Date Diagnosed Date Resolved Date Joint stiffness of right lower leg 10/21/2020 12/22/2020 Right leg weakness 10/21/2020 documented as of this encounter (statuses as of 06/05/2023) [facility]arr[facility]* Problem Noted Date Diagnosed Date Resolved Date Joint stiffness of right lower leg 10/21/2020 12/22/2020 Right leg weakness 10/21/2020 documented as of this encounter (statuses as of 06/05/2023) [facility]* Problem Noted Date Diagnosed Date Resolved Date Joint stiffness of right lower leg 10/21/2020 12/22/2020 Right leg weakness 10/21/2020 documented as of this encounter (statuses as of 07/18/2023) [facility] Narrative* Problem Noted Date Diagnosed Date Resolved Date Joint stiffness of right lower leg 10/21/2020 12/22/2020 Right leg weakness 10/21/2020 documented as of this encounter (statuses as of 08/11/2023) [facility] Narrative* Problem Noted Date Diagnosed Date Resolved Date Joint stiffness of right lower leg 10/21/2020 12/22/2020 Right leg weakness 10/21/2020 1 documented as of this encounter (statuses as of 08/24/2023) [address]13-2021 History of Past illness Narrative* Problem Noted Date Diagnosed Date Resolved Date Joint stiffness of right lower leg 10/21/2020 12/22/2020 Right leg weakness 10/21/2020 1 documented as of this encounter (statuses as of 09/07/2023) [address]13-2021 History of Past illness Narrative* Problem Noted Date Diagnosed Date Resolved Date Joint stiffness of right lower leg 10/21/2020 12/22/2020 Right leg weakness 10/21/2020 1 documented as of this encounter (statuses as of 09/12/2023) [facility]arrative* Problem Noted Date Diagnosed Date Resolved Date Joint stiffness of right lower leg 10/21/2020 12/22/2020 Right leg weakness 10/21/2020 1 documented as of this encounter (statuses as of 11/29/2023) [address]13-2021 History of Past illness Narrative* Problem Noted Date Diagnosed Date Resolved Date Joint stiffness of right lower leg 10/21/2020 12/22/2020 Right leg weakness 10/21/2020 1 documented as of this encounter (statuses as of 12/01/2023) [facility] Narrative* Problem Noted Date Diagnosed Date Resolved Date Joint stiffness of right lower leg 10/21/2020 12/22/2020 Right leg weakness 10/21/2020 1 documented as of this encounter (statuses as of 12/08/2023) [address]13-2021 History of Past illness Narrative* Problem Noted Date Diagnosed Date Resolved Date Joint stiffness of right lower leg 10/21/2020 12/22/2020 Right leg weakness 10/21/2020 1 documented as of this encounter (statuses as of 12/08/2023) [address]13-2021 History of Past illness Narrative* Problem Noted Date Diagnosed Date Resolved Date Joint stiffness of right lower leg 10/21/2020 12/22/2020 Right leg weakness 10/21/2020 1 documented as of this encounter (statuses as of 12/15/2023) [address]13-2021 History of Past illness Narrative* Problem Noted Date Diagnosed Date Resolved Date Joint stiffness of right lower leg 10/21/2020 12/22/2020 Right leg weakness 10/21/2020 1 documented as of this encounter (statuses as of 12/16/2023) [address]13-2021 History of Past illness Narrative* Problem Noted Date Diagnosed Date Resolved Date Joint stiffness of right lower leg 10/21/2020 12/22/2020 Right leg weakness 10/21/2020 1 documented as of this encounter (statuses as of 01/17/2024) [facility]arr[facility]* Problem Noted Date Diagnosed Date Resolved Date Joint stiffness of right lower leg 10/21/2020 12/22/2020 Right leg weakness 10/21/2020 1 documented as of this encounter (statuses as of 01/18/2024) [facility] Narrative* Problem Noted Date Diagnosed Date Resolved Date Joint stiffness of right lower leg 10/21/2020 12/22/2020 Right leg weakness 10/21/2020 1 documented as of this encounter (statuses as of 01/20/2024) [facility] Narrative* Problem Noted Date Diagnosed Date Resolved Date Joint stiffness of right lower leg 10/21/2020 12/22/2020 Right leg weakness 10/21/2020 1 documented as of this encounter (statuses as of 01/24/2024) [facility] Narrative* Problem Noted Date Diagnosed Date Resolved Date Joint stiffness of right lower leg 10/21/2020 12/22/2020 Right leg weakness 10/21/2020 1 documented as of this encounter (statuses as of 01/25/2024) [facility] History of Present illness Narrative* [...] 20, 2020 10:16 AM documented in this encounterAd[facility] CenterDischarge summary Author Prince Villanueva [facility] April 15, 2023 12:06pm Note Date/Time April 15, 2023 10:55 am [facility] Medical Records Department [address] [place] [address] Discharge Summary 04/15/23 1055 MR#: [id number] Acct: [id number] Name: BIANCA DELAROSA Rep #:[id number] : 1975 47 From: Prince Blanton PCP: Dr. Humberto Jackson MD Status:ADM KEYANA Location: [place] [address] Providers Date of Admission: 04/14/23 Primary Care [...] % (Auto) 73.5 H, Lymph % (Auto) 19.3,[place] % (Auto) 5.8, Eos % (Auto) 0.6, [...] % (Auto) 69.4, Lymph % (Auto) 20.5, [place] % (Auto) 7.8, Eos % (Auto) 1.5, [...] Signed: Jaime Amaya MD at 17:11 EDT Reading Location ID and State: [address] [place] [address] , Service support , Meaningful Use Info Meaningful Use Diagnoses [...] Self Care Charges/Coding Visit Charges Inpatient E&M: 06789 Disch Hosp 04/15/23 1206 <Electronically signed by Prince Villanueva MD> Cosigner Signature (if applicable): CC: Dr. Humberto Jackson MD; Dr. Prince Villanueva MD~ Signed [facility] Work Phone: Discharge summary Author Prince Villanueva [facility] April 15, 2023 11:01am Note Date/Time April 15, 2023 10:57 am [facility] Medical Records Department [address] [place] [address] Instructions for Home/Discharge Instructions 04/15/23 1055 MR#: [id number] Acct: [id number] Name: BIANCA DELAROSA Rep #:[id number] : 1975 47 From: Prince Blanton PCP: [...] Attending Provider: Prince Villanueva Primary Care Provider: uHmberto Jackson Discharge Orders/Prescriptions Prescriptions: New amoxicillin-pot clavulanate [...] CC: Dr. Humberto Jackson MD ~ Signed [facility] Work Phone: Discharge summary Author Jacky Jaimes [facility] Note Date/Time March 21, 2025 12:3 4pm [facility] Medical Records Department [address] [place] [address] Instructions for Home/Discharge Instructions 03/21/25 1210 MR#: [id number] Acct: [id number] Name: BIANCA DELAROSA Rep #:[id number] : 1975 49 From: Jacky Jaimes DO PCP: Dr. Humberto Jackson MD Status:ADM IN Discharge Instructions Diet Discharge Diet: - (Clear liquids today, advance diet tomorrow to your usual diet) DC O2, CPAP, BIPAP needs Home O2 Discharge instructions: No Dressing / Incision Discharge Activity: Return to Normal Activity Weight Bearing Status: Full weight bearing Follow Up Care Test Results: Test results from this visit will be discussed in further detail at your follow- up appointment, if applicable. Discharge Plan Admission Admit Date/Time: 03/16/25 14:55 Primary Reason for Your Visit: Gastric cancer, gastroparesis Attending Provider: Jacky Jaimes Primary Care Provider: Humberto Jackson Consulting Providers: Tia Bergman Discharge Orders/Prescriptions Prescriptions: New fluticasone propionate 50 mcg/actuation [place],Suspension 1 spray NASAL DAILY PRN (Reason: allergic symptoms) Qty: 0 0RF ondansetron HCl 8 mg tablet 8 mg PO Q6H PRN PRN (Reason: nausea and vomiting) Qty: 40 0RF metoclopramide HCl [Reglan] 10 mg tablet 10 mg PO TID Qty: 30 0RF azithromycin [Zithromax] 500 mg tablet 500 mg PO DAILY 8 Days Qty: 8 0RF Continued multivitamin 1 EACH tablet 1 ea PO DAILY esomeprazole magnesium 40 MG capsule 40 mg PO QHS fenofibrate 50 MG capsule 54 mg PO DAILY metformin 500 mg tablet 1,000 mg PO BID doxepin 10 MG capsule 10 mg PO QHS olanzapine 2.5 MG tablet 2.5 mg PO QHS zonisamide 25 MG capsule 25 mg PO DAILY buspirone 15 mg tablet PO BID Patient Comments: TAKE 1 TABLET BY MOUTH TWICE A DAY insulin lispro protamin-lispro 100 unit/mL (75-25) insulin pen SUBCUT duloxetine 60 mg capsule,delayed release(DR/EC) PO DAILY Patient Comments: TAKE 1 CAPSULE BY MOUTH ONCE DAILY atorvastatin 80 mg tablet 80 mg PO DAILY dexmethylphenidate 20 mg capsule,ER biphasic 50-50 20 mg PO DAILY duloxetine 30 mg capsule,delayed release(DR/EC) 30 mg PO DAILY ferrous sulfate 325 mg (65 mg iron) tablet 325 mg PO BID Discontinued atorvastatin 20 mg tablet 20 mg PO DAILY Other Ambulatory Orders: CBC W/Diff, Automated (Routine) Timeframe: 20250325 Facility: [facility] - Location: Laboratory Ordered By: Dr. Jacky Jaimes Referrals / Follow Up: Humberto Jackson MD [Primary Care Provider] - Cary Chandra MD [Med Staff - Active Staff] - See Referral Note (At your scheduled appointment time) Disposition Disposition (needs filled in before D/C Order can be placed): Home, Self Care 03/21/25 1234<Electronically signed by Jacky Jaimes DO>Jacky Jaimes DO CC: Dr. Humberto Jackson MD; Dr. Tia Bergman DO ~ Signed [facility] Work Phone: Evaluation note* Diagnosis Type 2 diabetes mellitus without complication, without long-term current use of insulin (HCC)- Primary Dyslipidemia Other and unspecified hyperlipidemia Class 2 severe obesity with serious comorbidity and body mass index (BMI) of 39.0 to 39.9 in adult, unspecified obesity type (HCC) [facility] encounter [facility]* Diagnosis Type 2 diabetes mellitus without complication, without long-term current use of insulin (HCC) documented in this encounter [facility] note* Diagnosis Type 2 diabetes mellitus without complication, without long-term current use of insulin (HCC)- Primary Well adult exam Routine general medical examination at a health care facility Diabetic eye exam ([facility]) Type II or unspecified type [...] of other medications documented in this encounter [facility]* Diagnosis Type 2 diabetes mellitus without complication, without long-term current use of insulin ([facility])- Primary Dyslipidemia Other and unspecified hyperlipidemia Class 2 severe obesity with serious comorbidity and body mass index (BMI) of 37.0 to 37.9 in adult, unspecified obesity type ([facility]) documented in this encounter [facility]* Diagnosis Need for vaccination- Primary Need for prophylactic vaccination and inoculation against unspecified single disease documented [facility] this encounter [facility]* Diagnosis Cellulitis of skin- Primary Cellulitis and abscess of unspecified site Abscess Cellulitis and abscess of unspecified site [facility] this [facility]* Diagnosis Abscess of buttock- Primary Cellulitis and abscess of buttock Encounter for immunization Need for other specified prophylactic vaccination against single bacterial disease documented [facility] this [facility]* Diagnosis Abscess of buttock- Primary Cellulitis and abscess of buttock Pilonidal cyst Pilonidal cyst without mention of abscess documented [facility] this [facility]* Diagnosis Type 2 diabetes mellitus without complication, without long-term current use of insulin ([facility])- Primary Dyslipidemia Other and unspecified hyperlipidemia Diabetic eye exam ([facility]) Type II or unspecified type [...] of other medications documented in this encounter [facility]* Diagnosis Attention 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 documented [facility] this encounter [facility]* Diagnosis Type 2 diabetes mellitus without complication, without long-term current use of insulin (HCC)- Primary Dyslipidemia Other and unspecified hyperlipidemia Multiple thyroid nodules Nontoxic multinodular goiter Obesity, Class II, BMI 35-39.9 Obesity, unspecified documented in this [facility] Diagnosis Type 2 diabetes mellitus without complication, without long-term current use of insulin (HCC) documented [facility] this [facility] Diagnosis Type 2 diabetes mellitus without complication, without long-term current use of insulin (HCC) documented [facility] this [facility] Diagnosis Attention 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 [facility] this [facility] Diagnosis Migraine without aura and [...] Generalized anxiety disorder [facility] this [facility]* Diagnosis Onset Date Resolution Status Perirectal abscess acute [facility] Work Phone: Evaluation note* Diagnosis Abscess of buttock- Primary Cellulitis and abscess of buttock documented [facility] this [facility] Diagnosis Type 2 diabetes mellitus without complication, without long-term current use of insulin (HCC) documented [facility] this [facility]* Diagnosis Attention 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 [facility] this [facility]* Diagnosis Screening for colon cancer- Primary Special screening for malignant neoplasms, colon Family history of colon cancer in father [facility]* Diagnosis Type 2 diabetes mellitus without complication, without long-term current use of insulin (HCC) documented [facility] this [facility]* Diagnosis Right foot pain Pain in soft tissues of limb documented in this encounter [facility] Work Phone: Evaluation note* Diagnosis Type 2 diabetes mellitus without complication, without long-term current use of insulin (HCC) [facility] Diagnosis Well adult exam- Primary Routine [...] single bacterial disease [facility] Diagnosis Attention 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- Primary [facility] Diagnosis Type 2 diabetes mellitus without complication, without long-term current use of insulin (HCC)- Primary Dyslipidemia Other and unspecified hyperlipidemia Multiple thyroid nodules Nontoxic multinodular goiter Obesity, Class II, BMI 35-39.9 Obesity, unspecified [facility] Diagnosis Type 2 diabetes mellitus without complication, without long-term current use of insulin (HCC) [facility] Diagnosis Multiple thyroid nodules- Primary Nontoxic multinodular goiter [facility] Diagnosis Attention 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 [facility] Diagnosis Thyroid nodule- Primary Nontoxic uninodular goiter [facility] Diagnosis Non-toxic nodular goiter- Primary Unspecified nontoxic nodular goiter Multiple thyroid nodules Nontoxic multinodular goiter [facility] Diagnosis Attention 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 [facility] this [facility] Diagnosis Attention 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 [facility] this [facility] Diagnosis Acute pain of right shoulder- Primary Type 2 diabetes mellitus without complication, without long-term current use of insulin (HCC) Dyslipidemia Other and unspecified hyperlipidemia Multiple thyroid nodules Nontoxic multinodular goiter Medication management Encounter for long-term (current) use of other medications documented in this encounter [facility] note* Diagnosis Migraine without aura and without [...] esophagitis Esophageal reflux [facility] this encounter [facility] Diagnosis Migraine without aura and [...] of right shoulder documented in this encounter [facility] Diagnosis Migraine without aura and [...] of right shoulder documented [facility] this encounter [facility] Diagnosis Migraine without aura and [...] (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 documented [facility] this encounter [facility]* Diagnosis Migraine without aura and [...] right shoulder- Primary documented in this encounter [facility] note* Diagnosis Migraine without aura and without [...] anxiety disorder Cough [facility] this [facility] Diagnosis Pain in both knees, unspecified [...] Generalized anxiety disorder documented [facility] this [facility]* Diagnosis Migraine without aura and [...] right shoulder- Primary [facility] Diagnosis Migraine without aura and [...] right shoulder- Primary documented in this encounter [facility] note* Diagnosis Migraine without aura and without [...] (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 documented in this encounter [facility] note* Diagnosis Migraine without aura and without [...] of other medications documented in this encounter [facility] note* Diagnosis Migraine without aura and without [...] right shoulder- Primary documented in this encounter [facility] note* Diagnosis Migraine without aura and without [...] and unspecified hyperlipidemia documented [facility] this encounter [facility] Diagnosis Migraine without aura and [...] serum enzyme levels documented in this encounter [facility] Diagnosis Migraine without aura and [...] serum enzyme levels [facility] Diagnosis Migraine without aura [...] of insulin (HCC) documented in this encounter [facility]* Diagnosis Migraine without aura and [...] (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 [facility] Diagnosis Migraine without aura [...] right breast- Primary documented [facility] this encounter [facility]* Diagnosis Migraine without aura and [...] of other medications documented [facility] this encounter [facility] Diagnosis Migraine without aura and [...] of right breast documented in this encounter [facility]* Diagnosis Migraine without aura and [...] of right breast documented in this encounter [facility]* Diagnosis Migraine without aura and [...] Hypertrophy of breast documented in this encounter [facility]* Diagnosis Migraine without aura and [...] without hyperactivity- Primary documented [facility] this encounter [facility]* Diagnosis Migraine without aura and [...] Unspecified endocrine disorder documented [facility] this encounter [facility]* Diagnosis Migraine without aura and [...] skull and head [facility] Diagnosis Migraine without aura [...] craniopharyngeal duct (pouch) documented in this encounter [facility]* Diagnosis Migraine without aura and [...] complication, without long-term current use of insulin ([facility]) Diabetic eye exam ([facility]) Type II or unspecified type [...] disorder with single episode, in partial remission ([facility]) Mood disorder ([facility]) Unspecified episodic mood disorder Obesity, Class II, [...] Abnormal chest sounds [facility] this [facility] Diagnosis Migraine without aura and [...] Abnormal chest sounds documented [facility] this encounter [facility]* Diagnosis Migraine without aura and [...] of right shoulder documented in this encounter [facility] Diagnosis Migraine without aura and [...] skull and head documented [facility] this encounter [facility]* Diagnosis Migraine without aura and [...] of insulin (HCC) documented in this encounter [facility]* Diagnosis Migraine without aura and [...] (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 documented in this encounter [facility]* Diagnosis Migraine without aura and [...] apnea (adult) (pediatric) documented in this encounter [facility]* Diagnosis Migraine without aura and [...] Dysphagia, pharyngoesophageal phase [facility] Diagnosis Migraine without aura and [...] Dysphagia, pharyngoesophageal phase documented in this encounter [facility]* Diagnosis Migraine without aura and [...] Dysphagia, pharyngoesophageal phase documented [facility] this [facility]* Diagnosis Migraine without aura and without [...] Dysphagia, pharyngoesophageal phase documented in this encounter [facility]* Diagnosis Migraine without aura and [...] Dysphagia, pharyngoesophageal phase documented in this encounter [facility] note* Diagnosis Migraine without aura and without [...] Dysphagia, pharyngoesophageal phase documented in this encounter [facility] note* Diagnosis Migraine without aura and without [...] Dysphagia, pharyngoesophageal phase documented in this encounter [facility] note* Diagnosis Migraine without aura and without [...] Dysphagia, pharyngoesophageal phase documented in this encounter [facility] note* Diagnosis Migraine without aura and without [...] Dysphagia, pharyngoesophageal phase documented in this encounter [facility] note* Diagnosis Onset Date Resolution Status Admit Date Gastric mass acute March 16 2:55pm Microcytic anemia acute March 2:55pm Symptomatic anemia acute March 162024 2:55pm Weight loss acute March 16 2:55pm [facility] Work Phone: Evaluation note* Diagnosis Migraine without aura and without [...] disorder Attention 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 Gastroesophageal reflux disease, unspecified whether esophagitis present Esophageal dysphagia Dysphagia, pharyngoesophageal phase documented in this encounter [facility] note* Diagnosis Migraine without aura and without [...] ISABELLA (generalized anxiety disorder) Generalized anxiety disorder Malignant neoplasm of stomach, unspecified location (HCC)- Primary Iron deficiency anemia, unspecified iron deficiency anemia type Altered bowel function Other symptoms involving digestive system [facility] Prince Villanueva [facility] April 14, 2023 5:05pm Note Date/Time April 14, 2023 4:55p m [facility] Medical Records Department [address] [place] [address] History & Physical Exam 04/14/23 1651 MR#: [id number] Acct: [id number] Name: BIANCA DELAROSA Rep #:[id number] : 1975 47 From: [place] PCP: Dr. Humberto Jackson MD Status:REG [facility] Location: [facility] AC-TB A-2 HPI - General General Date of Service: 04/14/23 HPI Narrative BIANCA DELAROSA, is a 47 M who presents to [facility] ER under direction from his PCP [...] last year and was without remarkable findings. [facility] Medical History (Updated 04/14/23 @ 17:03 by [...] Verified 03/06/19 14:55 metoclopramide [From Reglan] Allergy long [facility] Verified 03/06/19 14:55 out sertraline [From Zoloft] [...] % (Auto) 73.5 H, Lymph % (Auto) 19.3,[place] % (Auto) 5.8, Eos % (Auto) 0.6, [...] and drainage. Charges/Coding Visit Charges Inpatient E&M: 88743 Init Hosp L2 04/14/23 1705 <Electronically signed by Prince Villanueva MD> Cosigner Signature (if applicable): CC: Dr. Humberto Jackson MD; Dr. Prince Villanueav MD~ Signed [facility] Work Phone: Hospital Discharge instructionsAmbulatory Orders* General Surgery Location: None Selected [facility] Work Phone: Reason for referral (narrative)* Outpatient Procedure (Routine) - Closed Specialty Diagnoses / Procedures Referred By Carlos cortes Referred To Contact [facility] Diagnoses Family history of colon cancer in father Procedures COLONOSCOPY SCREENING COLONOSCOPY FLX DX W/COLLJ SPEC WHEN PFRMJohanna Rivera MD [address] [place] [address] [facility] [address] [place] [address] Referral ID Status Reason Start Date Expiration Date V isits Requested Visits Authorized [id number] Closed Auto-Generate d Referral 07/22/2022 07/22/2023 1 1 [facility] for referral (narrative)* Diagnostic Procedure Only (Routine) - Closed Specialty Diagnoses / Procedures Referred By Carlos cortes Referred To Contact XR IMAGING Diagnoses Acute pain of right shoulder Procedures XR SHOULDER GENERAL 3V OR MORE AP/TRUE AP/OTHER RIGHT RADEX SHOULDER COMPLETE MINIMUM 2 VIEWS Dominik Judge APRN.CNP [address] [place] [address] [place] [address] Referral ID Status Reason Start Date Expiration Date V isits Requested Visits Authorized [id number] Closed Auto-Generate d Referral 05/21/2024 06/20/2025 1 1 [facility] for referral (narrative)* Diagnostic Procedure Only (Routine) - Closed Specialty Diagnoses / Procedures Referred By Contac t Referred To Contact US IMAGING Diagnoses Elevated alkaline phosphatase level Procedures US ABD RIGHT UPPER QUADRANT US ABDOMINAL REAL TIME W/IMAGE LIMITED Humberto Jackson MD [address] [place] [address] [facility] Referral ID Status Reason Start Date Expiration Date V isits Requested Visits Authorized [id number] Closed Auto-Generate d Referral 10/17/2024 11/16/2025 1 1 [facility] for referral (narrative)No reason for referral information [facility]ercy [facility] Work Phone: [facility] Narrative* Outpatient Procedure (Routine) - Closed Specialty Diagnoses / Procedures Referred By Contac t Referred To Contact [facility] Diagnoses Family history of colon cancer in father Procedures COLONOSCOPY SCREENING COLONOSCOPY FLX DX W/COLLJ SPEC WHEN PFRMJohanna Rivera MD [address] [place] [address] [facility] [address] [place] [address] Referral ID Status Reason Start Date Expiration Date V isits Requested Visits Authorized [id number] Closed Auto-Generate d Referral 07/22/2022 07/22/2023 1 1 [facility] for visit Narrative* Diagnostic Procedure Only (Routine) - Closed Specialty Diagnoses / Procedures Referred By Contac t Referred To Contact US IMAGING Diagnoses Multiple thyroid nodules Procedures US THYROID/PARATHYROID US SOFT TISSUE HEAD & NECK REAL TIME IMGE DOCM BrendaTorres lentz, JAVA MANAGER.[employer]IP[employer] COIL WINDER [address] [address] [place] [address] Referral ID Status Reason Start Date Expiration Date V isits Requested Visits Authorized [id number] Closed Auto-Generate d Referral 07/07/2023 08/05/2024 1 1 [facility] for visit Narrative* Diagnostic Procedure Only (Routine) - Closed Specialty Diagnoses / Procedures Referred By Contac t Referred To Contact XR IMAGING Diagnoses Acute pain of right shoulder Procedures XR SHOULDER GENERAL 3V OR MORE AP/TRUE AP/OTHER RIGHT RADEX SHOULDER COMPLETE MINIMUM 2 VIEWS Dominik Judge, JAVA MANAGER.MULTIP[employer] COIL WINDER [address] [place] [address] [place] [address] Referral ID Status Reason Start Date Expiration Date V isits Requested Visits Authorized [id number] Closed Auto-Generate d Referral 05/21/2024 06/20/2025 1 1 [facility] for visit Narrative* Diagnostic Procedure Only (Routine) - Closed Specialty Diagnoses / Procedures Referred By Contac t Referred To Contact BR [facility] Diagnoses Subareolar mass of right breast Procedures FIGUEROA DIAGNOSTIC BILATERAL DIAGNOSTIC MAMMOGRAPHY COMPUTER-AIDED DETCJ BI Humberto Jackson MD [address] [place] [address] Phone: tel: fax: [facility] [address] [place] [address] Referral ID Status Reason Start Date Expiration Date V isits Requested Visits Authorized [id number] Closed Auto-Generate d Referral 11/22/2024 12/22/2025 1 1 [facility] for visit Narrative* MRI/CT (Routine) - Closed Specialty Diagnoses / Procedures Referred By Contac t Referred To Contact MR IMAGING Diagnoses Acute pain of right shoulder Procedures MRI SHOULDER WO IVCON RIGHT MRI ANY JT UPPER EXTREMITY W/O CONTRAST Humberto Hickey MD [address] [place] [address] Phone: tel: fax: [place] [address] Referral ID Status Reason Start Date Expiration Date V isits Requested Visits Authorized [id number] Closed Auto-Generate d Referral 12/20/2024 01/19/2026 1 1 [facility] Summary Purpose Family History Relationship Condition Age at Onset Recorded Date/T ariadna father Malignant neoplasm of colon Unknown Cardiac disease Unknown Myocardial infarction Unknown Relationship Condition Age at Onset Recorded Date/T ariadna father Malignant neoplasm of colon Unknown Cardiac disease Unknown Myocardial infarction Unknown uncle Malignant neoplasm of colon Unknown Advance Directives Documents on File Type Date Recorded 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 Advance Directive(s) 01/20/2021 6:28 PM Advance Directive(s) 02/01/2020 3:50 PM Advance Directive(s) 10/20/2018 4:37 PM Advance Directive(s) 07/14/2018 4:43 PM Advance Directive(s) 09/08/2017 9:38 AM Advance Directive(s) 08/16/2017 10:21 AM Documents on File Type Date Recorded 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 anation Advance Directive(s) 01/20/2021 6:28 PM Advance Directive(s) 02/01/2020 3:50 PM Advance Directive(s) 10/20/2018 4:37 PM Advance Directive(s) 07/14/2018 4:43 PM Advance Directive(s) 09/08/2017 9:38 AM Advance Directive(s) 08/16/2017 10:21 AM Advance Directive Response Recorded Date/ Time Living Will No April 14, 2023 2 :47pm Power of Piano Sounding Board Matcher No April 14, 2023 2:47pm Advance Directive Response Recorded Date/ Time Living Will No April 14, 2023 9 :00pm Power of Piano Sounding Board Matcher No April 14, 2023 9:00pm Advance Directive Response Recorded Date/ Time Do you have a Healthcare Power of Piano Sounding Board Matcher? No March 16, 2025 12:07pm Advance Directive Response Recorded Date/ Time Do you have a Healthcare Power of Piano Sounding Board Matcher? No March 16, 2025 3:56pm Reason for Referral Specialty Diagnoses / Procedures Referred By Carlos cortes Referred To Contact Podiatry Diagnoses Type 2 diabetes mellitus without complication, without long-term current use of insulin (HCC) Procedures CONSULT TO PODIATRY OFFICE/OUTPATIENT NEW HIGH MDM 60-74 MINUTES Torres Monaco, GHULAM.MULTIP[employer] COIL WINDER [address] [address] Referral ID Status Reason Start Date Expiration Date Visits Requested Visits Authorized [id number] Authorized PCP Requested Referral 03/04/2022 03/04/2023 1 1 Specialty Diagnoses / Procedures Referred By Contac t Referred To Contact Diagnoses Obstructive sleep apnea syndrome Procedures CONSULT TO SLEEP MEDICINE - ADULT OFFICE/OUTPATIENT [facility] 60-74 MINUTES Humberto Jackson MD [address] [place] [address] Referral ID Status Reason Start Date Expiration Date Visits Requested Visits Authorized [id number] Authorized PCP Requested Referral 06/04/2022 06/04/2023 1 1 Specialty Diagnoses / Procedures Referred By Contac t Referred To Contact General Surgery Diagnoses Abscess of buttock Pilonidal cyst Procedures CONSULT TO GENERAL SURGERY OFFICE/OUTPATIENT [facility] 60-74 MINUTES Kenyatta Castaneda PA-C [address] [place] [address] Referral ID Status Reason Start Date Expiration Date Visits Requested Visits Authorized [id number] Authorized PCP Requested Referral 08/17/2022 08/17/2023 1 1 Specialty Diagnoses / Procedures Referred By Contac t Referred To Contact Radiology Diagnoses Right foot pain Procedures XR foot right 3+ views Jarvis Peters DO [address] [place] [address] [place] [address] Referral ID Status Reason Start Date Expiration Date Visits Requested Visits Authorized [id number] Authorized Perform Procedure 10/27/2023 10/26/2024 1 1 Specialty Diagnoses / Procedures Referred By Contac t Referred To Contact Diagnoses Multiple thyroid nodules Procedures CONSULT TO ENDOCRINE SURGERY OFFICE/OUTPATIENT [facility] 60 MINUTES Torres Moncao APRN.MULTIP[employer] COIL WINDER [address] [address] Referral ID Status Reason Start Date Expiration Date Visits Requested Visits Authorized [id number] Authorized PCP Requested Referral 01/24/2024 01/23/2025 1 1 Specialty Diagnoses / Procedures Referred By Contac t Referred To Contact [facility] Diagnoses Acute pain of right shoulder Procedures CONSULT TO PHYSICAL THERAPY PHYSICAL THERAPY EVALUATION HIGH COMPLEX 45 MINS Dominik Judge, JAVA MANAGER.MULTIPLE COIL WINDER [address] [place] [address] [facility] [address] [place] [address] Referral ID Status Reason Start Date Expiration Date Visits Requested Visits Authorized [id number] Authorized Auto-Generat ed Referral 02/07/2024 10/08/2024 20 20 Specialty Diagnoses / Procedures Referred By Carlos t Referred To Contact XR IMAGING Diagnoses Acute pain of right shoulder Procedures XR SHOULDER GENERAL 3V OR MORE AP/TRUE AP/OTHER RIGHT RADEX SHOULDER COMPLETE MINIMUM 2 VIEWS Dominik Judge APRN.MULTIPLE COIL WINDER [address] [place] [address] [place] [address] Referral ID Status Reason Start Date Expiration Date V isits Requested Visits Authorized [id number] Closed Auto-Generate d Referral 05/21/2024 06/20/2025 1 1 Chief Complaint and Reason for Visit Chief Complaint Abscess ABSCESS Reason for Visit Perirectal abscess Chief Complaint Abscess ABSCESS Abscess Reason for Visit Perirectal abscess Chief Complaint Admit Date SEVERE ANEMIA March 16, 2025 2:55p m Reason for Visit Admit Date Gastric mass March 16, 2025 2:55p m Microcytic anemia March 16, 2025 2:55p m Symptomatic anemia March 16, 2025 2:55p m Weight loss March 16, 2025 2:55p m Chief Complaint Admit Date SEVERE ANEMIA March 16, 2025 2:55p m SEVERE ANEMIA March 16, 2025 3:09p m SEVERE ANEMIA March 17, 2025 12:45 pm SEVERE ANEMIA March 17, 2025 7:24p m SEVERE ANEMIA March 18, 2025 6:53 pm SEVERE ANEMIA March 19, 2025 5:36 pm SEVERE ANEMIA March 19, 2025 6:34 pm SEVERE ANEMIA March 20, 2025 2:19 pm SEVERE ANEMIA March 20, 2025 7:25 pm Reason for Visit Admit Date Anemia March 16, 2025 2:55p m Cancer, metastatic to bone March 16 2:55pm Carcinomatosis March 16, 2025 2:55p m Gastric cancer March 16, 2025 2:55p m Gastric mass March 16, 2025 2:55p m Microcytic anemia March 16, 2025 2:55p m Symptomatic anemia March 16, 2025 2:55p m Weight loss March 16, 2025 2:55p m Chief Complaint Admit Date SEVERE ANEMIA March 16, 2025 2:55p m SEVERE ANEMIA March 16, 2025 3:09p m SEVERE ANEMIA March 17, 2025 12:45 pm SEVERE ANEMIA March 17, 2025 7:24p m SEVERE ANEMIA March 18, 2025 6:53 pm SEVERE ANEMIA March 19, 2025 5:36 pm SEVERE ANEMIA March 19, 2025 6:34 pm SEVERE ANEMIA March 20, 2025 2:19 pm SEVERE ANEMIA March 20, 2025 7:25 pm SEVERE ANEMIA March 21, 2025 12:3 4pm SEVERE ANEMIA March 21, 2025 6:00 pm INT LAB ORDER March 25, 2025 11:4 8am GASTRIC MASS March 27, 2025 3:21 pm Reason for Visit Admit Date Anemia March 16, 2025 2:55p m Carcinomatosis March 16, 2025 2:55p m Gastric cancer March 16, 2025 2:55p m Gastric mass March 16, 2025 2:55p m Microcytic anemia March 16, 2025 2:55p m Symptomatic anemia March 16, 2025 2:55p m Weight loss March 16, 2025 2:55p m Cancer, metastatic to bone March 16 2:55pm Gastric cancer March 27, 2025 3:21 pm Lung nodule March 27, 2025 3:21 pm Metastasis to bone March 27, 2025 3:21 pm 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 March 27, 2025 3:21pm Chief Complaint Admit Date SEVERE ANEMIA March 16, 2025 2:55p m SEVERE ANEMIA March 16, 2025 3:09p m SEVERE ANEMIA March 17, 2025 12:45 pm SEVERE ANEMIA March 17, 2025 7:24p m SEVERE ANEMIA March 18, 2025 6:53 pm SEVERE ANEMIA March 19, 2025 5:36 pm SEVERE ANEMIA March 19, 2025 6:34 pm SEVERE ANEMIA March 20, 2025 2:19 pm SEVERE ANEMIA March 20, 2025 7:25 pm SEVERE ANEMIA March 21, 2025 12:3 4pm SEVERE ANEMIA March 21, 2025 6:00 pm INT LAB ORDER March 25, 2025 11:4 8am GASTRIC MASS March 27, 2025 3:21 pm GASTRIC March 28, 2025 8:02 am Reason for Visit Admit Date Gastric cancer March 16, 2025 2:55p m Microcytic anemia March 16, 2025 2:55p m Anemia March 16, 2025 2:55p m Carcinomatosis March 16, 2025 2:55p m Gastric mass March 16, 2025 2:55p m Symptomatic anemia March 16, 2025 2:55p m Weight loss March 16, 2025 2:55p m Cancer, metastatic to bone March 16 2:55pm Gastric cancer March 27, 2025 3:21 pm Lung nodule March 27, 2025 3:21 pm Metastasis to bone March 27, 2025 3:21 pm 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 March 27, 2025 3:21pm Chief Complaint Admit Date SEVERE ANEMIA March 16, 2025 2:55p m SEVERE ANEMIA March 16, 2025 3:09p m SEVERE ANEMIA March 17, 2025 12:45 pm SEVERE ANEMIA March 17, 2025 7:24p m SEVERE ANEMIA March 18, 2025 6:53 pm SEVERE ANEMIA March 19, 2025 5:36 pm SEVERE ANEMIA March 19, 2025 6:34 pm SEVERE ANEMIA March 20, 2025 2:19 pm SEVERE ANEMIA March 20, 2025 7:25 pm SEVERE ANEMIA March 21, 2025 12:3 4pm SEVERE ANEMIA March 21, 2025 6:00 pm INT LAB ORDER March 25, 2025 11:4 8am GASTRIC MASS March 27, 2025 3:21 pm GASTRIC April 01, 2025 8:00 am STAGING GASTRIC CANCER April 04, 2025 9 :41am PORT PLACEMENT April 07, 2025 1:42 pm Reason for Visit Admit Date Gastric cancer March 16, 2025 2:55p m Microcytic anemia March 16, 2025 2:55p m Anemia March 16, 2025 2:55p m Carcinomatosis March 16, 2025 2:55p m Gastric mass March 16, 2025 2:55p m Symptomatic anemia March 16, 2025 2:55p m Weight loss March 16, 2025 2:55p m Cancer, metastatic to bone March 16 2:55pm Gastric cancer March 27, 2025 3:21 pm Lung nodule March 27, 2025 3:21 pm Metastasis to bone March 27, 2025 3:21 pm 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 March 27, 2025 3:21pm Encounter for insertion of venous access port April 07, 2025 1:42pm Gastric cancer April 07, 2025 1:42 pm Metastasis to bone April 07, 2025 1:42 pm 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 April 07, 2025 1:42pm Chief Complaint Admit Date SEVERE ANEMIA March 16, 2025 2:55p m SEVERE ANEMIA March 16, 2025 3:09p m SEVERE ANEMIA March 17, 2025 12:45 pm SEVERE ANEMIA March 17, 2025 7:24p m SEVERE ANEMIA March 18, 2025 6:53 pm SEVERE ANEMIA March 19, 2025 5:36 pm SEVERE ANEMIA March 19, 2025 6:34 pm SEVERE ANEMIA March 20, 2025 2:19 pm SEVERE ANEMIA March 20, 2025 7:25 pm SEVERE ANEMIA March 21, 2025 12:3 4pm SEVERE ANEMIA March 21, 2025 6:00 pm INT LAB ORDER March 25, 2025 11:4 8am GASTRIC MASS March 27, 2025 3:21 pm GASTRIC April 01, 2025 8:00 am STAGING GASTRIC CANCER April 04, 2025 9 :41am PORT PLACEMENT April 07, 2025 1:42 pm REVIEW PET/MRI-BRAIN April 08, 2025 1:26 pm Medications Administered Section Inactive Administered Medications - [...] section and content) DATE CREATED AUTHOR 04/03/2018 [facility] DATE CREATED AUTHOR AUTHOR'S ORGANIZ ATION 10/23/2018 [facility] DATE CREATED AUTHOR AUTHOR'S ORGANIZ ATION 04/26/2024 [facility] DATE CREATED AUTHOR AUTHOR'S ORGANIZ ATION 01/14/2025 [facility] DATE CREATED AUTHOR AUTHOR'S ORGANIZ ATION 04/01/2025 [facility] DATE CREATED AUTHOR AUTHOR'S ORGANIZ ATION 04/03/2025 [facility] DATE CREATED AUTHOR AUTHOR'S ORGANIZ ATION 04/05/2025 [facility] DATE CREATED AUTHOR AUTHOR'S ORGANIZ ATION 04/08/2025 [facility] Source Comments (unrecognize d section and content) In the event this informatio n is protected by the Federal Confidentiality of Alcohol and Drug Abuse Patient Records regulations: The Federal rules restrict any use of the information to criminally investigate or prosecute any alcohol or drug abuse patient.[facility] CenterIn the event this information is protected by the Federal Confidentiality of Alcohol and Drug Abuse Patient Records regulations: The Federal rules restrict any use of the information to criminally investigate or prosecute any alcohol or drug abuse patient.[facility] CenterIn the event this information is protected by the Federal Confidentiality of Alcohol and Drug Abuse Patient Records regulations: The Federal rules restrict any use of the information to criminally investigate or prosecute any alcohol or drug abuse patient.[facility] CenterIn the event this information is protected by the Federal Confidentiality of Alcohol and Drug Abuse Patient Records regulations: The Federal rules restrict any use of the information to criminally investigate or prosecute any alcohol or drug abuse patient.[facility] CenterIn the event this information is protected by the Federal Confidentiality of Alcohol and Drug Abuse Patient Records regulations: The Federal rules restrict any use of the information to criminally investigate or prosecute any alcohol or drug abuse patient.[facility] CenterIn the event this information is protected by the Federal Confidentiality of Alcohol and Drug Abuse Patient Records regulations: The Federal rules restrict any use of the information to criminally investigate or prosecute any alcohol or drug abuse patient.[facility] CenterIn the event this information is protected by the Federal Confidentiality of Alcohol and Drug Abuse Patient Records regulations: The Federal rules restrict any use of the information to criminally investigate or prosecute any alcohol or drug abuse patient.[facility] CenterIn the event this information is protected by the Federal Confidentiality of Alcohol and Drug Abuse Patient Records regulations: The Federal rules restrict any use of the information to criminally investigate or prosecute any alcohol or drug abuse patient.[facility] CenterIn the event this information is protected by the Federal Confidentiality of Alcohol and Drug Abuse Patient Records regulations: The Federal rules restrict any use of the information to criminally investigate or prosecute any alcohol or drug abuse patient.[facility] CenterIn the event this information is protected by the Federal Confidentiality of Alcohol and Drug Abuse Patient Records regulations: The Federal rules restrict any use of the information to criminally investigate or prosecute any alcohol or drug abuse patient.[facility] CenterIn the event this information is protected by the Federal Confidentiality of Alcohol and Drug Abuse Patient Records regulations: The Federal rules restrict any use of the information to criminally investigate or prosecute any alcohol or drug abuse patient.[facility] CenterIn the event this information is protected by the Federal Confidentiality of Alcohol and Drug Abuse Patient Records regulations: The Federal rules restrict any use of the information to criminally investigate or prosecute any alcohol or drug abuse patient.[facility] CenterIn the event this information is protected by the Federal Confidentiality of Alcohol and Drug Abuse Patient Records regulations: The Federal rules restrict any use of the information to criminally investigate or prosecute any alcohol or drug abuse patient.[facility] CenterIn the event this information is protected by the Federal Confidentiality of Alcohol and Drug Abuse Patient Records regulations: The Federal rules restrict any use of the information to criminally investigate or prosecute any alcohol or drug abuse patient.[facility] CenterIn the event this information is protected by the Federal Confidentiality of Alcohol and Drug Abuse Patient Records regulations: The Federal rules restrict any use of the information to criminally investigate or prosecute any alcohol or drug abuse patient.[facility] CenterIn the event this information is protected by the Federal Confidentiality of Alcohol and Drug Abuse Patient Records regulations: The Federal rules restrict any use of the information to criminally investigate or prosecute any alcohol or drug abuse patient.[facility] CenterIn the event this information is protected by the Federal Confidentiality of Alcohol and Drug Abuse Patient Records regulations: The Federal rules restrict any use of the information to criminally investigate or prosecute any alcohol or drug abuse patient.[facility] CenterIn the event this information is protected by the Federal Confidentiality of Alcohol and Drug Abuse Patient Records regulations: The Federal rules restrict any use of the information to criminally investigate or prosecute any alcohol or drug abuse patient.[facility] CenterIn the event this information is protected by the Federal Confidentiality of Alcohol and Drug Abuse Patient Records regulations: The Federal rules restrict any use of the information to criminally investigate or prosecute any alcohol or drug abuse patient.[facility] CenterIn the event this information is protected by the Federal Confidentiality of Alcohol and Drug Abuse Patient Records regulations: The Federal rules restrict any use of the information to criminally investigate or prosecute any alcohol or drug abuse patient.[facility] CenterIn the event this information is protected by the Federal Confidentiality of Alcohol and Drug Abuse Patient Records regulations: The Federal rules restrict any use of the information to criminally investigate or prosecute any alcohol or drug abuse patient.[facility] CenterIn the event this information is protected by the Federal Confidentiality of Alcohol and Drug Abuse Patient Records regulations: The Federal rules restrict any use of the information to criminally investigate or prosecute any alcohol or drug abuse patient.[facility] CenterIn the event this information is protected by the Federal Confidentiality of Alcohol and Drug Abuse Patient Records regulations: The Federal rules restrict any use of the information to criminally investigate or prosecute any alcohol or drug abuse patient.[facility] CenterIn the event this information is protected by the Federal Confidentiality of Alcohol and Drug Abuse Patient Records regulations: The Federal rules restrict any use of the information to criminally investigate or prosecute any alcohol or drug abuse patient.[facility] CenterIn the event this information is protected by the Federal Confidentiality of Alcohol and Drug Abuse Patient Records regulations: The Federal rules restrict any use of the information to criminally investigate or prosecute any alcohol or drug abuse patient.[facility] CenterIn the event this information is protected by the Federal Confidentiality of Alcohol and Drug Abuse Patient Records regulations: The Federal rules restrict any use of the information to criminally investigate or prosecute any alcohol or drug abuse patient.[facility] CenterIn the event this information is protected by the Federal Confidentiality of Alcohol and Drug Abuse Patient Records regulations: The Federal rules restrict any use of the information to criminally investigate or prosecute any alcohol or drug abuse patient.[facility] CenterIn the event this information is protected by the Federal Confidentiality of Alcohol and Drug Abuse Patient Records regulations: The Federal rules restrict any use of the information to criminally investigate or prosecute any alcohol or drug abuse patient.[facility] CenterIn the event this information is protected by the Federal Confidentiality of Alcohol and Drug Abuse Patient Records regulations: The Federal rules restrict any use of the information to criminally investigate or prosecute any alcohol or drug abuse patient.[facility] CenterIn the event this information is protected by the Federal Confidentiality of Alcohol and Drug Abuse Patient Records regulations: The Federal rules restrict any use of the information to criminally investigate or prosecute any alcohol or drug abuse patient.[facility] CenterIn the event this information is protected by the Federal Confidentiality of Alcohol and Drug Abuse Patient Records regulations: The Federal rules restrict any use of the information to criminally investigate or prosecute any alcohol or drug abuse patient.[facility] CenterIn the event this information is protected by the Federal Confidentiality of Alcohol and Drug Abuse Patient Records regulations: The Federal rules restrict any use of the information to criminally investigate or prosecute any alcohol or drug abuse patient.[facility] CenterIn the event this information is protected by the Federal Confidentiality of Alcohol and Drug Abuse Patient Records regulations: The Federal rules restrict any use of the information to criminally investigate or prosecute any alcohol or drug abuse patient.[facility] CenterIn the event this information is protected by the Federal Confidentiality of Alcohol and Drug Abuse Patient Records regulations: The Federal rules restrict any use of the information to criminally investigate or prosecute any alcohol or drug abuse patient.[facility] CenterIn the event this information is protected by the Federal Confidentiality of Alcohol and Drug Abuse Patient Records regulations: The Federal rules restrict any use of the information to criminally investigate or prosecute any alcohol or drug abuse patient.[facility] CenterIn the event this information is protected by the Federal Confidentiality of Alcohol and Drug Abuse Patient Records regulations: The Federal rules restrict any use of the information to criminally investigate or prosecute any alcohol or drug abuse patient.[facility] CenterIn the event this information is protected by the Federal Confidentiality of Alcohol and Drug Abuse Patient Records regulations: The Federal rules restrict any use of the information to criminally investigate or prosecute any alcohol or drug abuse patient.[facility] CenterIn the event this information is protected by the Federal Confidentiality of Alcohol and Drug Abuse Patient Records regulations: The Federal rules restrict any use of the information to criminally investigate or prosecute any alcohol or drug abuse patient.[facility] CenterIn the event this information is protected by the Federal Confidentiality of Alcohol and Drug Abuse Patient Records regulations: The Federal rules restrict any use of the information to criminally investigate or prosecute any alcohol or drug abuse patient.[facility] CenterIn the event this information is protected by the Federal Confidentiality of Alcohol and Drug Abuse Patient Records regulations: The Federal rules restrict any use of the information to criminally investigate or prosecute any alcohol or drug abuse patient.[facility] CenterIn the event this information is protected by the Federal Confidentiality of Alcohol and Drug Abuse Patient Records regulations: The Federal rules restrict any use of the information to criminally investigate or prosecute any alcohol or drug abuse patient.[facility] CenterIn the event this information is protected by the Federal Confidentiality of Alcohol and Drug Abuse Patient Records regulations: The Federal rules restrict any use of the information to criminally investigate or prosecute any alcohol or drug abuse patient.[facility] CenterIn the event this information is protected by the Federal Confidentiality of Alcohol and Drug Abuse Patient Records regulations: The Federal rules restrict any use of the information to criminally investigate or prosecute any alcohol or drug abuse patient.[facility] CenterIn the event this information is protected by the Federal Confidentiality of Alcohol and Drug Abuse Patient Records regulations: The Federal rules restrict any use of the information to criminally investigate or prosecute any alcohol or drug abuse patient.[facility] CenterIn the event this information is protected by the Federal Confidentiality of Alcohol and Drug Abuse Patient Records regulations: The Federal rules restrict any use of the information to criminally investigate or prosecute any alcohol or drug abuse patient.[facility] CenterIn the event this information is protected by the Federal Confidentiality of Alcohol and Drug Abuse Patient Records regulations: The Federal rules restrict any use of the information to criminally investigate or prosecute any alcohol or drug abuse patient.[facility] CenterIn the event this information is protected by the Federal Confidentiality of Alcohol and Drug Abuse Patient Records regulations: The Federal rules restrict any use of the information to criminally investigate or prosecute any alcohol or drug abuse patient.[facility] CenterIn the event this information is protected by the Federal Confidentiality of Alcohol and Drug Abuse Patient Records regulations: The Federal rules restrict any use of the information to criminally investigate or prosecute any alcohol or drug abuse patient.[facility] CenterIn the event this information is protected by the Federal Confidentiality of Alcohol and Drug Abuse Patient Records regulations: The Federal rules restrict any use of the information to criminally investigate or prosecute any alcohol or drug abuse patient.[facility] CenterIn the event this information is protected by the Federal Confidentiality of Alcohol and Drug Abuse Patient Records regulations: The Federal rules restrict any use of the information to criminally investigate or prosecute any alcohol or drug abuse patient.[facility] CenterIn the event this information is protected by the Federal Confidentiality of Alcohol and Drug Abuse Patient Records regulations: The Federal rules restrict any use of the information to criminally investigate or prosecute any alcohol or drug abuse patient.[facility] CenterIn the event this information is protected by the Federal Confidentiality of Alcohol and Drug Abuse Patient Records regulations: The Federal rules restrict any use of the information to criminally investigate or prosecute any alcohol or drug abuse patient.[facility] CenterIn the event this information is protected by the Federal Confidentiality of Alcohol and Drug Abuse Patient Records regulations: The Federal rules restrict any use of the information to criminally investigate or prosecute any alcohol or drug abuse patient.[facility] CenterIn the event this information is protected by the Federal Confidentiality of Alcohol and Drug Abuse Patient Records regulations: The Federal rules restrict any use of the information to criminally investigate or prosecute any alcohol or drug abuse patient.[facility] CenterIn the event this information is protected by the Federal Confidentiality of Alcohol and Drug Abuse Patient Records regulations: The Federal rules restrict any use of the information to criminally investigate or prosecute any alcohol or drug abuse patient.[facility] CenterIn the event this information is protected by the Federal Confidentiality of Alcohol and Drug Abuse Patient Records regulations: The Federal rules restrict any use of the information to criminally investigate or prosecute any alcohol or drug abuse patient.[facility] CenterIn the event this information is protected by the Federal Confidentiality of Alcohol and Drug Abuse Patient Records regulations: The Federal rules restrict any use of the information to criminally investigate or prosecute any alcohol or drug abuse patient.[facility] CenterIn the event this information is protected by the Federal Confidentiality of Alcohol and Drug Abuse Patient Records regulations: The Federal rules restrict any use of the information to criminally investigate or prosecute any alcohol or drug abuse patient.[facility] CenterIn the event this information is protected by the Federal Confidentiality of Alcohol and Drug Abuse Patient Records regulations: The Federal rules restrict any use of the information to criminally investigate or prosecute any alcohol or drug abuse patient.[facility] CenterIn the event this information is protected by the Federal Confidentiality of Alcohol and Drug Abuse Patient Records regulations: The Federal rules restrict any use of the information to criminally investigate or prosecute any alcohol or drug abuse patient.[facility] CenterIn the event this information is protected by the Federal Confidentiality of Alcohol and Drug Abuse Patient Records regulations: The Federal rules restrict any use of the information to criminally investigate or prosecute any alcohol or drug abuse patient.[facility] CenterIn the event this information is protected by the Federal Confidentiality of Alcohol and Drug Abuse Patient Records regulations: The Federal rules restrict any use of the information to criminally investigate or prosecute any alcohol or drug abuse patient.[facility] CenterIn the event this information is protected by the Federal Confidentiality of Alcohol and Drug Abuse Patient Records regulations: The Federal rules restrict any use of the information to criminally investigate or prosecute any alcohol or drug abuse patient.[facility] CenterIn the event this information is protected by the Federal Confidentiality of Alcohol and Drug Abuse Patient Records regulations: The Federal rules restrict any use of the information to criminally investigate or prosecute any alcohol or drug abuse patient.[facility] CenterIn the event this information is protected by the Federal Confidentiality of Alcohol and Drug Abuse Patient Records regulations: The Federal rules restrict any use of the information to criminally investigate or prosecute any alcohol or drug abuse patient.[facility] CenterIn the event this information is protected by the Federal Confidentiality of Alcohol and Drug Abuse Patient Records regulations: The Federal rules restrict any use of the information to criminally investigate or prosecute any alcohol or drug abuse patient.[facility] CenterIn the event this information is protected by the Federal Confidentiality of Alcohol and Drug Abuse Patient Records regulations: The Federal rules restrict any use of the information to criminally investigate or prosecute any alcohol or drug abuse patient.[facility] CenterIn the event this information is protected by the Federal Confidentiality of Alcohol and Drug Abuse Patient Records regulations: The Federal rules restrict any use of the information to criminally investigate or prosecute any alcohol or drug abuse patient.[facility] CenterIn the event this information is protected by the Federal Confidentiality of Alcohol and Drug Abuse Patient Records regulations: The Federal rules restrict any use of the information to criminally investigate or prosecute any alcohol or drug abuse patient.[facility] CenterIn the event this information is protected by the Federal Confidentiality of Alcohol and Drug Abuse Patient Records regulations: The Federal rules restrict any use of the information to criminally investigate or prosecute any alcohol or drug abuse patient.[facility] CenterIn the event this information is protected by the Federal Confidentiality of Alcohol and Drug Abuse Patient Records regulations: The Federal rules restrict any use of the information to criminally investigate or prosecute any alcohol or drug abuse patient.[facility] CenterIn the event this information is protected by the Federal Confidentiality of Alcohol and Drug Abuse Patient Records regulations: The Federal rules restrict any use of the information to criminally investigate or prosecute any alcohol or drug abuse patient.[facility] CenterIn the event this information is protected by the Federal Confidentiality of Alcohol and Drug Abuse Patient Records regulations: The Federal rules restrict any use of the information to criminally investigate or prosecute any alcohol or drug abuse patient.[facility] CenterIn the event this information is protected by the Federal Confidentiality of Alcohol and Drug Abuse Patient Records regulations: The Federal rules restrict any use of the information to criminally investigate or prosecute any alcohol or drug abuse patient.[facility] CenterIn the event this information is protected by the Federal Confidentiality of Alcohol and Drug Abuse Patient Records regulations: The Federal rules restrict any use of the information to criminally investigate or prosecute any alcohol or drug abuse patient.[facility] CenterIn the event this information is protected by the Federal Confidentiality of Alcohol and Drug Abuse Patient Records regulations: The Federal rules restrict any use of the information to criminally investigate or prosecute any alcohol or drug abuse patient.[facility] CenterIn the event this information is protected by the Federal Confidentiality of Alcohol and Drug Abuse Patient Records regulations: The Federal rules restrict any use of the information to criminally investigate or prosecute any alcohol or drug abuse patient.[facility] CenterIn the event this information is protected by the Federal Confidentiality of Alcohol and Drug Abuse Patient Records regulations: The Federal rules restrict any use of the information to criminally investigate or prosecute any alcohol or drug abuse patient.[facility] CenterIn the event this information is protected by the Federal Confidentiality of Alcohol and Drug Abuse Patient Records regulations: The Federal rules restrict any use of the information to criminally investigate or prosecute any alcohol or drug abuse patient.[facility] CenterIn the event this information is protected by the Federal Confidentiality of Alcohol and Drug Abuse Patient Records regulations: The Federal rules restrict any use of the information to criminally investigate or prosecute any alcohol or drug abuse patient.[facility] CenterIn the event this information is protected by the Federal Confidentiality of Alcohol and Drug Abuse Patient Records regulations: The Federal rules restrict any use of the information to criminally investigate or prosecute any alcohol or drug abuse patient.[facility] CenterIn the event this information is protected by the Federal Confidentiality of Alcohol and Drug Abuse Patient Records regulations: The Federal rules restrict any use of the information to criminally investigate or prosecute any alcohol or drug abuse patient.[facility] CenterIn the event this information is protected by the Federal Confidentiality of Alcohol and Drug Abuse Patient Records regulations: The Federal rules restrict any use of the information to criminally investigate or prosecute any alcohol or drug abuse patient.[facility] CenterIn the event this information is protected by the Federal Confidentiality of Alcohol and Drug Abuse Patient Records regulations: The Federal rules restrict any use of the information to criminally investigate or prosecute any alcohol or drug abuse patient.[facility] CenterIn the event this information is protected by the Federal Confidentiality of Alcohol and Drug Abuse Patient Records regulations: The Federal rules restrict any use of the information to criminally investigate or prosecute any alcohol or drug abuse patient.[facility] CenterIn the event this information is protected by the Federal Confidentiality of Alcohol and Drug Abuse Patient Records regulations: The Federal rules restrict any use of the information to criminally investigate or prosecute any alcohol or drug abuse patient.[facility] CenterIn the event this information is protected by the Federal Confidentiality of Alcohol and Drug Abuse Patient Records regulations: The Federal rules restrict any use of the information to criminally investigate or prosecute any alcohol or drug abuse patient.[facility] CenterIn the event this information is protected by the Federal Confidentiality of Alcohol and Drug Abuse Patient Records regulations: The Federal rules restrict any use of the information to criminally investigate or prosecute any alcohol or drug abuse patient.[facility] CenterIn the event this information is protected by the Federal Confidentiality of Alcohol and Drug Abuse Patient Records regulations: The Federal rules restrict any use of the information to criminally investigate or prosecute any alcohol or drug abuse patient.[facility] CenterIn the event this information is protected by the Federal Confidentiality of Alcohol and Drug Abuse Patient Records regulations: The Federal rules restrict any use of the information to criminally investigate or prosecute any alcohol or drug abuse patient.[facility] CenterIn the event this information is protected by the Federal Confidentiality of Alcohol and Drug Abuse Patient Records regulations: The Federal rules restrict any use of the information to criminally investigate or prosecute any alcohol or drug abuse patient.[facility] CenterIn the event this information is protected by the Federal Confidentiality of Alcohol and Drug Abuse Patient Records regulations: The Federal rules restrict any use of the information to criminally investigate or prosecute any alcohol or drug abuse patient.[facility] CenterIn the event this information is protected by the Federal Confidentiality of Alcohol and Drug Abuse Patient Records regulations: The Federal rules restrict any use of the information to criminally investigate or prosecute any alcohol or drug abuse patient.[facility] CenterIn the event this information is protected by the Federal Confidentiality of Alcohol and Drug Abuse Patient Records regulations: The Federal rules restrict any use of the information to criminally investigate or prosecute any alcohol or drug abuse patient.[facility] CenterIn the event this information is protected by the Federal Confidentiality of Alcohol and Drug Abuse Patient Records regulations: The Federal rules restrict any use of the information to criminally investigate or prosecute any alcohol or drug abuse patient.[facility] CenterIn the event this information is protected by the Federal Confidentiality of Alcohol and Drug Abuse Patient Records regulations: The Federal rules restrict any use of the information to criminally investigate or prosecute any alcohol or drug abuse patient.[facility] CenterIn the event this information is protected by the Federal Confidentiality of Alcohol and Drug Abuse Patient Records regulations: The Federal rules restrict any use of the information to criminally investigate or prosecute any alcohol or drug abuse patient.[facility] CenterIn the event this information is protected by the Federal Confidentiality of Alcohol and Drug Abuse Patient Records regulations: The Federal rules restrict any use of the information to criminally investigate or prosecute any alcohol or drug abuse patient.[facility] CenterIn the event this information is protected by the Federal Confidentiality of Alcohol and Drug Abuse Patient Records regulations: The Federal rules restrict any use of the information to criminally investigate or prosecute any alcohol or drug abuse patient.[facility] CenterIn the event this information is protected by the Federal Confidentiality of Alcohol and Drug Abuse Patient Records regulations: The Federal rules restrict any use of the information to criminally investigate or prosecute any alcohol or drug abuse patient.[facility] CenterIn the event this information is protected by the Federal Confidentiality of Alcohol and Drug Abuse Patient Records regulations: The Federal rules restrict any use of the information to criminally investigate or prosecute any alcohol or drug abuse patient.[facility] CenterIn the event this information is protected by the Federal Confidentiality of Alcohol and Drug Abuse Patient Records regulations: The Federal rules restrict any use of the information to criminally investigate or prosecute any alcohol or drug abuse patient.[facility] CenterIn the event this information is protected by the Federal Confidentiality of Alcohol and Drug Abuse Patient Records regulations: The Federal rules restrict any use of the information to criminally investigate or prosecute any alcohol or drug abuse patient.[facility] CenterIn the event this information is protected by the Federal Confidentiality of Alcohol and Drug Abuse Patient Records regulations: The Federal rules restrict any use of the information to criminally investigate or prosecute any alcohol or drug abuse patient.[facility] CenterIn the event this information is protected by the Federal Confidentiality of Alcohol and Drug Abuse Patient Records regulations: The Federal rules restrict any use of the information to criminally investigate or prosecute any alcohol or drug abuse patient.[facility] CenterIn the event this information is protected by the Federal Confidentiality of Alcohol and Drug Abuse Patient Records regulations: The Federal rules restrict any use of the information to criminally investigate or prosecute any alcohol or drug abuse patient.[facility] CenterIn the event this information is protected by the Federal Confidentiality of Alcohol and Drug Abuse Patient Records regulations: The Federal rules restrict any use of the information to criminally investigate or prosecute any alcohol or drug abuse patient.[facility] CenterIn the event this information is protected by the Federal Confidentiality of Alcohol and Drug Abuse Patient Records regulations: The Federal rules restrict any use of the information to criminally investigate or prosecute any alcohol or drug abuse patient.[facility] CenterIn the event this information is protected by the Federal Confidentiality of Alcohol and Drug Abuse Patient Records regulations: The Federal rules restrict any use of the information to criminally investigate or prosecute any alcohol or drug abuse patient.[facility] CenterIn the event this information is protected by the Federal Confidentiality of Alcohol and Drug Abuse Patient Records regulations: The Federal rules restrict any use of the information to criminally investigate or prosecute any alcohol or drug abuse patient.[facility] CenterIn the event this information is protected by the Federal Confidentiality of Alcohol and Drug Abuse Patient Records regulations: The Federal rules restrict any use of the information to criminally investigate or prosecute any alcohol or drug abuse patient.[facility] CenterIn the event this information is protected by the Federal Confidentiality of Alcohol and Drug Abuse Patient Records regulations: The Federal rules restrict any use of the information to criminally investigate or prosecute any alcohol or drug abuse patient.[facility] CenterIn the event this information is protected by the Federal Confidentiality of Alcohol and Drug Abuse Patient Records regulations: The Federal rules restrict any use of the information to criminally investigate or prosecute any alcohol or drug abuse patient.[facility] CenterIn the event this information is protected by the Federal Confidentiality of Alcohol and Drug Abuse Patient Records regulations: The Federal rules restrict any use of the information to criminally investigate or prosecute any alcohol or drug abuse patient.[facility] CenterIn the event this information is protected by the Federal Confidentiality of Alcohol and Drug Abuse Patient Records regulations: The Federal rules restrict any use of the information to criminally investigate or prosecute any alcohol or drug abuse patient.[facility] CenterIn the event this information is protected by the Federal Confidentiality of Alcohol and Drug Abuse Patient Records regulations: The Federal rules restrict any use of the information to criminally investigate or prosecute any alcohol or drug abuse patient.[facility] CenterIn the event this information is protected by the Federal Confidentiality of Alcohol and Drug Abuse Patient Records regulations: The Federal rules restrict any use of the information to criminally investigate or prosecute any alcohol or drug abuse patient.[facility] CenterIn the event this information is protected by the Federal Confidentiality of Alcohol and Drug Abuse Patient Records regulations: The Federal rules restrict any use of the information to criminally investigate or prosecute any alcohol or drug abuse patient.[facility] CenterIn the event this information is protected by the Federal Confidentiality of Alcohol and Drug Abuse Patient Records regulations: The Federal rules restrict any use of the information to criminally investigate or prosecute any alcohol or drug abuse patient.[facility] CenterIn the event this information is protected by the Federal Confidentiality of Alcohol and Drug Abuse Patient Records regulations: The Federal rules restrict any use of the information to criminally investigate or prosecute any alcohol or drug abuse patient.[facility] CenterIn the event this information is protected by the Federal Confidentiality of Alcohol and Drug Abuse Patient Records regulations: The Federal rules restrict any use of the information to criminally investigate or prosecute any alcohol or drug abuse patient.[facility] CenterIn the event this information is protected by the Federal Confidentiality of Alcohol and Drug Abuse Patient Records regulations: The Federal rules restrict any use of the information to criminally investigate or prosecute any alcohol or drug abuse patient.[facility] CenterIn the event this information is protected by the Federal Confidentiality of Alcohol and Drug Abuse Patient Records regulations: The Federal rules restrict any use of the information to criminally investigate or prosecute any alcohol or drug abuse patient.[facility] CenterIn the event this information is protected by the Federal Confidentiality of Alcohol and Drug Abuse Patient Records regulations: The Federal rules restrict any use of the information to criminally investigate or prosecute any alcohol or drug abuse patient.[facility] CenterIn the event this information is protected by the Federal Confidentiality of Alcohol and Drug Abuse Patient Records regulations: The Federal rules restrict any use of the information to criminally investigate or prosecute any alcohol or drug abuse patient.[facility] CenterIn the event this information is protected by the Federal Confidentiality of Alcohol and Drug Abuse Patient Records regulations: The Federal rules restrict any use of the information to criminally investigate or prosecute any alcohol or drug abuse patient.[facility] CenterIn the event this information is protected by the Federal Confidentiality of Alcohol and Drug Abuse Patient Records regulations: The Federal rules restrict any use of the information to criminally investigate or prosecute any alcohol or drug abuse patient.[facility] CenterIn the event this information is protected by the Federal Confidentiality of Alcohol and Drug Abuse Patient Records regulations: The Federal rules restrict any use of the information to criminally investigate or prosecute any alcohol or drug abuse patient.[facility] CenterIn the event this information is protected by the Federal Confidentiality of Alcohol and Drug Abuse Patient Records regulations: The Federal rules restrict any use of the information to criminally investigate or prosecute any alcohol or drug abuse patient.[facility] CenterIn the event this information is protected by the Federal Confidentiality of Alcohol and Drug Abuse Patient Records regulations: The Federal rules restrict any use of the information to criminally investigate or prosecute any alcohol or drug abuse patient.[facility] CenterIn the event this information is protected by the Federal Confidentiality of Alcohol and Drug Abuse Patient Records regulations: The Federal rules restrict any use of the information to criminally investigate or prosecute any alcohol or drug abuse patient.[facility] Reason for Visit (unrecogniz ed section and content) Reason Comments Physical Therapy Specialty Diagnoses / Procedures Referred By Contphilip t Referred To Contact [facility] Diagnoses Acute pain of right shoulder Procedures CONSULT TO PHYSICAL THERAPY PHYSICAL THERAPY EVALUATION HIGH COMPLEX 45 MINS Dominik Judge, GHULAM.[employer] [address] [place] [address] [facility] [place] [address] [place] [address] Referral ID Status Reason Start Date Expiration Date Visits Requested Visits Authorized [id number] Authorized Auto-Generat ed Referral 02/07/2024 10/08/2024 20 [...] pain Procedures XR foot right 3+ views Jarvis Peters DO [address] [facility] [place] [address] Referral ID Status Reason Start Date Expiration Date Visits Requested Visits Authorized [id number] Authorized Perform Procedure 10/27/2023 10/26/2024 1 1 Reason Comments PA--FREESTYLE DIANA 3 SENSOR (RENEWAL) Reason Comments Physical Reason Comments Med Change Request Reason Comments Results Appointment Reason Onset Date Comments Refill Request 01/23/2024 Specialty Diagnoses / Procedures Referred By Carlos cortes Referred To Contact Diagnoses Multiple thyroid nodules Procedures CONSULT TO ENDOCRINE SURGERY OFFICE/OUTPATIENT [facility] 60 MINUTES Torres Monaco, JAVA MANAGER.[employer] [address] [address] Referral ID Status Reason Start Date Expiration Date V isits Requested Visits Authorized [id number] Closed PCP Requested Referral 01/24/2024 01/23/2025 1 [...] THERAPY EVALUATION HIGH COMPLEX 45 MINS Dominik Judge APRN.[employer] [address] [place] [address] Pt Count Includes [facility] [address] [place] [address] Reason Comments Radiology US Specialty Diagnoses / Procedures Referred By Contac t Referred To Contact [facility] Diagnoses Elevated alkaline phosphatase level Procedures US ABD RIGHT UPPER QUADRANT US ABDOMINAL REAL TIME W/IMAGE LIMITED Humberto Jackson MD [address] [place] [address] [place] [address] Referral ID Status Reason Start Date Expiration Date V isits Requested Visits Authorized [id number] Closed Auto-Generate d Referral 10/17/2024 11/16/2025 1 1 Reason Comments Results Reason Onset Date Comments Refill Request 11/18/2024 Reason Comments Pain Right nipple pain Reason Comments Radiology US Specialty Diagnoses / Procedures Referred By Contac t Referred To Contact [facility] Diagnoses Subareolar mass of right breast Procedures US BREAST LTD RIGHT US BREAST UNI REAL TIME WITH IMAGE LIMITED Humberto Jackson MD [address] [place] [address] Phone: tel: fax: [facility] [address] [place] [address] Referral ID Status Reason Start Date Expiration Date V isits Requested Visits Authorized [id number] Closed Auto-Generate d Referral 11/22/2024 12/22/2025 1 1 Reason Comments Radiology MRI Specialty Diagnoses / Procedures Referred By Contac t Referred To Contact [facility] Diagnoses Gynecomastia, male Low testosterone in male Elevated prolactin level Procedures MRI BRAIN WO/W IVCON MRI BRAIN BRAIN STEM W/O W/[place] [address] [place] [address] Phone: tel: fax: [place] [id number] Referral ID Status Reason Start Date Expiration Date V isits Requested Visits Authorized [id number] Closed Auto-Generate d Referral 11/26/2024 12/26/2025 1 [...] HIGH MDM 60 MINUT[place] [address] [place] [address] Phone: tel: fax: Referral ID Status Reason Start Date Expiration Date V isits Requested Visits Authorized [id number] Closed PCP Requested Referral 01/10/2025 01/10/2026 1 1 Reason Comments Pituitary Problem Specialty Diagnoses / Procedures Referred By Contac t Referred To Contact Neurosurgery Diagnoses Gynecomastia Elevated prolactin level Pituitary adenoma (HCC) Procedures CONSULT TO NEUROSURGERY OFFICE/OUTPATIENT NEW HIGH MDM 60 MINUTES Humberto Jackson MD [address] [place] [address] Phone: tel: fax: Referral ID Status Reason Start Date Expiration Date V isits Requested Visits Authorized [id number] Closed PCP Requested Referral 12/20/2024 12/20/2025 1 1 Reason Comments Dizziness X 1 week Reason Onset Date Comments Results 03/07/2025 Reason Comments low hgb Low Hgb. SOB easy. E asily fatigued. PCP wants colonoscopy Specialty Diagnoses / Procedures Referred By Contac t Referred To Contact General Surgery Diagnoses Anemia, unspecified type Procedures CONSULT TO GENERAL SURGERY OFFICE/OUTPATIENT [facility] 60 MINUTES Kenyatta Castaneda PA-C [address] [place] [address] Phone: tel: fax: Referral ID Status Reason Start Date Expiration Date V isits Requested Visits Authorized [id number] Closed PCP Requested Referral 03/07/2025 03/07/2026 1 1 Reason Comments Results, Lab Reason Comments Outside EGD EGD Letter Reason Comments Outside EGD Operative Letter Reason Comments Outside EGD Reason Onset Date Comments Refill Request 03/22/2025 Reason Comments Results Outside labs Reason Comments Outside [id number] Ordered FOL, RBC Reason Comments Outside PET Scan Reason Comments Hospital Follow Up Reason Onset Date Comments Results 04/04/2025 Care Teams (unrecognized sec tion and content) Team Status: Active Member Role Status Dates Dr. Humberto Jackson MD Primary Care Provider Active Team Status: Inactive Member Role Status Dates Dr. Humberto Jackson MD Primary Care Provider Active Start: March 16, 2025 End: March 21, 2025 Dr. Macey Merchant DO Emergency Provider Active S tart: March 16, 2025 End: March 21, 2025 Dr. Tia Bergman DO Admit Provider Active Start : March 16, 2025 End: March 21, 2025 Dr. Tia Bergman DO Other Provider Active Start : March 16, 2025 End: March 21, 2025 Dr. Jacky Jaimes DO Attending Provider Active Start: March 16, 2025 End: March 21, 2025 Team Status: Active Member Role Status Dates Dr. Humberto Jackson MD Primary Care Provider Active Start: March 16, 2025 Dr. Macey Merchant DO Emergency Provider Active S tart: March 16, 2025 Dr. Tia Bergman DO Admit Provider Active Start : March 16, 2025 Dr. Tia Bergman DO Attending Provider Active S tart: March 16, 2025 Dr. Tia Bergman DO Other Provider Active Start : March 16, 2025 Team Status: Active Member Role Status Dates Dr. Humberto Jackson MD Primary Care Provider Active Start: March 17, 2025 Dr. Macey Merchant DO Emergency Provider Active S tart: March 17, 2025 Dr. Tia Bergman , DO Admit Provider Active Start : March 17, 2025 Dr. Tia Bergman , DO Other Provider Active Start : March 17, 2025 Dr. Jacky Jaimes , DO Other Provider Active S tart: March 17, 2025 Dr. Jonathan Martinez , DO Attending Provider Active Start: March 17, 2025 Team Status: Active Member Role Status Dates Dr. Humberto Jackson MD Primary Care Provider Active Start: March 17, 2025 Dr. Macey Merchant , DO Emergency Provider Active S tart: March 17, 2025 Dr. Tia Bergman , DO Admit Provider Active Start : March 17, 2025 Dr. Tia Bergman , DO Other Provider Active Start : March 17, 2025 Dr. Jacky Jaimes , DO Attending Provider Active Start: March 17, 2025 Dr. Jacky Jaimes , DO Other Provider Active S tart: March 17, 2025 Team Status: Active Member Role Status Dates Dr. Humberto Jackson MD Primary Care Provider Active Start: March 18, 2025 Dr. Macey Merchant , DO Emergency Provider Active S tart: March 18, 2025 Dr. Tia Bergman , DO Admit Provider Active Start : March 18, 2025 Dr. Tia Bergman , DO Other Provider Active Start : March 18, 2025 Dr. Jacky Jaimes , DO Attending Provider Active Start: March 18, 2025 Dr. Jacky Jaimes , DO Other Provider Active S tart: March 18, 2025 Team Status: Active Member Role Status Dates Dr. Humberto Jackson MD Primary Care Provider Active Start: March 19, 2025 Dr. Macey Merchant , DO Emergency Provider Active S tart: March 19, 2025 Dr. Tia Bergman , DO Admit Provider Active Start : March 19, 2025 Dr. Tia Bergman , DO Other Provider Active Start : March 19, 2025 Dr. Jacky Jaimes , DO Other Provider Active S tart: March 19, 2025 Dr. Jonathan Martinez , DO Attending Provider Active Start: March 19, 2025 Team Status: Active Member Role Status Dates Dr. Humberto Jakcson MD Primary Care Provider Active Start: March 19, 2025 Dr. Macey Merchant , DO Emergency Provider Active S tart: March 19, 2025 Dr. Tia Bergman , DO Admit Provider Active Start : March 19, 2025 Dr. Tia Bergman , DO Other Provider Active Start : March 19, 2025 Dr. Jacky Jaimes , DO Attending Provider Active Start: March 19, 2025 Dr. Jacky Jaimes , DO Other Provider Active S tart: March 19, 2025 Team Status: Active Member Role Status Dates Dr. Humberto Jackson MD Primary Care Provider Active Start: March 20, 2025 Dr. Macey Merchant , DO Emergency Provider Active S tart: March 20, 2025 Dr. Tia Bergman , DO Admit Provider Active Start : March 20, 2025 Dr. Tia Bergman , DO Other Provider Active Start : March 20, 2025 Dr. Jacky Jaimes , DO Other Provider Active S tart: March 20, 2025 Dr. Jonathan Martinez , DO Attending Provider Active Start: March 20, 2025 Team Status: Active Member Role Status Dates Dr. Humberto Jackson MD Primary Care Provider Active Start: March 20, 2025 Dr. Macey Merchant , DO Emergency Provider Active S tart: March 20, 2025 Dr. Tia Bergman , DO Admit Provider Active Start : March 20, 2025 Dr. Tia Bergman , DO Other Provider Active Start : March 20, 2025 Dr. Jacky Jaimes , DO Attending Provider Active Start: March 20, 2025 Dr. Jacky Jaimes , DO Other Provider Active S tart: March 20, 2025 Hot Baller Relationship Specialty Start Date End Date Humberto Jackson MD [address] [place], [place] [id number] PCP - General Family Practice 05/06/14 Hot Baller Relationship Specialty Start Date End Date Humberto Jackson MD [address] [place], [place] [id number] PCP - General Family Practice 05/06/14 Hot Baller Relationship Specialty Start Date End Date Humberto Jackson MD [address] [place], [place] [id number] PCP - General Family Practice 05/06/14 Hot Baller Relationship Specialty Start Date End Date Humberto Jackson MD [address] [facility] [place] [address] PCP - General Family Practice 05/06/14 Hot Baller Relationship Specialty Start Date End Date Humberto Jackson MD [facility] [place] [address] PCP - General Family Practice 05/06/14 Hot Baller Relationship Specialty Start Date End Date Humberto Jackson MD [facility] [place] [address] PCP - General Family Practice 05/06/14 Hot Baller Relationship Specialty Start Date End Date Humberto Jackson MD [address] [place] [address], [place] [address] PCP - General Family Practice 05/06/14 Hot Baller Relationship Specialty Start Date End Date Humberto Jackson MD [address] [place] [address], [place] [address] PCP - General Family Practice 05/06/14 Hot Baller Relationship Specialty Start Date End Date Humberto Jackson MD [address] [place] [address], [place] [address] PCP - General Family Practice 05/06/14 Hot Baller Relationship Specialty Start Date End Date Humberto Jackson MD [facility] [place] [address] PCP - General Family Practice 05/06/14 Hot Baller Relationship Specialty Start Date End Date Humberto Jackson MD [address] [place] [address], [place] [address] PCP - General Family Practice 05/06/14 Hot Baller Relationship Specialty Start Date End Date Humberto Jackson MD [address] [place] [address], [place] [address] PCP - General Family Medicine 05/06/14 Hot Baller Relationship Specialty Start Date End Date Humberto Jackson MD [address] [facility] [place] [address] PCP - General Family Medicine 05/06/14 Hot Baller Relationship Specialty Start Date End Date Humberto Jackson MD [address] [facility] [place] [address] PCP - General Family Medicine 05/06/14 Hot Baller Relationship Specialty Start Date End Date Humberto Jackson MD [address] [facility] [place] [address] PCP - General Family Medicine 05/06/14 Hot Baller Relationship Specialty Start Date End Date Humberto Jackson MD [address] [place] [address], [place] [address] PCP - General Family Medicine 05/06/14 Hot Baller Relationship Specialty Start Date End Date Humberto Jackson MD [facility] [place] [address] PCP - General Family Medicine 05/06/14 Hot Baller Relationship Specialty Start Date End Date Humberto Jackson MD [facility] [place] [address] PCP - General Family Medicine 05/06/14 Hot Baller Relationship Specialty Start Date End Date Humberto Jackson MD [facility] [place] [address] PCP - General Family Medicine 05/06/14 Hot Baller Relationship Specialty Start Date End Date Humberto Jackson MD [facility] [place] [address] PCP - General Family Medicine 05/06/14 Hot Baller Relationship Specialty Start Date End Date Humberto Jackson MD [address] [place] [address] PCP - General Family Medicine 05/06/14 Hot Baller Relationship Specialty Start Date End Date Humberto Jackson MD [address] [place] [address] PCP - General Family Medicine 05/06/14 Team [...] MD Admit Provider, Attending Provi tobi Active Hot Baller Relationship Specialty Start Date End Date Humberto Jackson MD [address] [place] [address] PCP - General Family Medicine 05/06/14 Hot Baller Relationship Specialty Start Date End Date Humberto Jackson MD [address] [place], [place] 79[address] [phone] PCP - General Family Medicine 05/06/14 Hot Baller Relationship Specialty Start Date End Date Humberto Jackson MD [address] [place], [place] [address] [phone] PCP - General Family Medicine 05/06/14 Hot Baller Relationship Specialty Start Date End Date Humberto Jackson MD [address] [place], [place] [address]26[address] [phone] PCP - General Family Medicine 05/06/14 Hot Baller Relationship Specialty Start Date End Date Humberto Jackson MD [address] [place], [place] 9[address] [phone] PCP - General Family Medicine 05/06/14 Hot Baller Relationship Specialty Start Date End Date Humberto Jackson MD [address] [place], [place] 412939 [phone] PCP - General Family Medicine 05/06/14 Hot Baller Relationship Specialty Start Date End Date Humberto Jackson MD [address] [place] [address] [phone] PCP - General Family Medicine 05/06/14 Hot Baller Relationship Specialty Start Date End Date Humberto Jackson MD [address] [place] [phone] PCP - General 11/28/11 Hot Baller Relationship Specialty Start Date End Date Humberto Jackson MD [address] [place], [place] 245[address] [phone] PCP - General Family Medicine 05/06/14 Hot Baller Relationship Specialty Start Date End Date Humberto Jackson MD [address] [place], [place] [address] [phone] PCP - General Family Medicine 05/06/14 Efren Powell, KENNEY [address] [place] [address] Primary Care Patent Engineer Internal Medicine 09/29/23 10/29/23 Hot Baller Relationship Specialty Start Date End Date Humberto Jackson MD [address] [place] [address] PCP - General Family Medicine 05/06/14 Hot Baller Relationship Specialty Start Date End Date Humberto Jackson MD [address] [place] [address] PCP - General Family Medicine 05/06/14 Hot Baller Relationship Specialty Start Date End Date Humberto Jackson MD [address] [place] [address] PCP - General Family Medicine 05/06/14 Hot Baller Relationship Specialty Start Date End Date Humberto Jackson MD [address] [place] [address] PCP - General Family Medicine 05/06/14 Hot Baller Relationship Specialty Start Date End Date Humberto Jackson MD [address] [place] [address] PCP - General Family Medicine 05/06/14 Hot Baller Relationship Specialty Start Date End Date Humberto Jackson MD [address] [place] [address] PCP - General Family Medicine 05/06/14 Hot Baller Relationship Specialty Start Date End Date Humberto Jackson MD [address] [place] [address] PCP - General Family Medicine 05/06/14 Hot Baller Relationship Specialty Start Date End Date Humberto Jackson MD [address] [place] [address] PCP - General Family Medicine 05/06/14 Hot Baller Relationship Specialty Start Date End Date Humberto Jackson MD [address] [place] [address] PCP - General Family Medicine 05/06/14 Hot Baller Relationship Specialty Start Date End Date Humberto Jackson MD [address] [place] [address] PCP - General Family Medicine 05/06/14 Hot Baller Relationship Specialty Start Date End Date Humberto Jackson MD [address] [place] [address] PCP - General Family Medicine 05/06/14 Hot Baller Relationship Specialty Start Date End Date Humberto Jackson MD [address] [place] [address] PCP - General Family Medicine 05/06/14 Hot Baller Relationship Specialty Start Date End Date Humberto Jackson MD [address] [place] [address] PCP - General Family Medicine 05/06/14 Hot Baller Relationship Specialty Start Date End Date Humberto Jackson MD [address] [place] [address] PCP - General Family Medicine 05/06/14 Hot Baller Relationship Specialty Start Date End Date Humberto Jackson MD [address] [place] [address] PCP - General Family Medicine 05/06/14 Hot Baller Relationship Specialty Start Date End Date Humberto Jackson MD [address] [place] [address] PCP - General Family Medicine 05/06/14 Hot Baller Relationship Specialty Start Date End Date Humberto Jackson MD [address] [place] [address] PCP - General Family Medicine 05/06/14 Hot Baller Relationship Specialty Start Date End Date Humberto Jackson MD [address] [place] [address] PCP - General Family Medicine 05/06/14 Hot Baller Relationship Specialty Start Date End Date Humberto Jackson MD [address] [place] [address] PCP - General Family Medicine 05/06/14 Hot Baller Relationship Specialty Start Date End Date Humberto Jackson MD [address] [place] [address] PCP - General Family Medicine 05/06/14 Dominik Judge APRN.MULTIPLE COIL WINDER [address] [place] [address] [employer]er[employer] Family Medicine 09/14/24 Kenyatta Castaneda PA-C [address] [place] [address] [employer]er[employer] Family Medicine 09/14/24 Hot Baller Relationship Specialty Start Date End Date Humberto Jackson MD [address] [place] [address] PCP - General Family Medicine 05/06/14 Dominik Judge APRN.MULTIPLE COIL WINDER [address] [place] [address] Waiter/Waitress [employer] Family [facility] 09/14/24 Kenyatta Castaneda PA-C [address] [facility] [place] [address] [facility] 09/14/24 Hot Baller Relationship Specialty Start Date End Date Humberto Jackson MD [address] [facility] [place] [address] PCP - General Family Medicine 05/06/14 Dominik Judge APRN.MULTIPLE COIL WINDER [address] [place] [address] [facility] 09/14/24 Kenyatta Castaneda PA-C [address] [place] [address] [facility] 09/14/24 Hot Baller Relationship Specialty Start Date End Date Humberto Jackson MD [address] [place] [address] PCP - General Family Medicine 05/06/14 Dominik Judge APRN.MULTIPLE COIL WINDER [address] [place] [address] [facility] Family Medicine 09/14/24 Kenyatta Castaneda PA-C [address] [facility] [place] [address] [facility] Medicine 09/14/24 Hot Baller Relationship Specialty Start Date End Date Humberto Jackson MD [address] [place] [address] PCP - General Family Medicine 05/06/14 Dominik Judge APRN.MULTIPLE COIL WINDER [address] [place] [address] [employer]er[employer] Family Medicine 09/14/24 Kenyatta Castaneda PA-C [address] [place] [address] [employer]er[employer] Family Medicine 09/14/24 Hot Baller Relationship Specialty Start Date End Date Humberto Jackson MD [address] [place] [address] PCP - General Family Medicine 05/06/14 Dominik Judge APRN.MULTIPLE COIL WINDER [facility] [place] [address] Waiter/Waitress [employer] Family Medicine 09/14/24 Kenyatta Castaneda PA-C [address] [place] [address] [employer]er[employer] Family Medicine 09/14/24 Hot Baller Relationship Specialty Start Date End Date Humberto Jackson MD [address] [place] [address] PCP - General Family Medicine 05/06/14 Dominik Judge, JAVA MANAGER.MULTIPLE COIL WINDER [address] [place] [address] [employer]er[employer] Family [facility] 09/14/24 Kenyatta Castaneda PA-C [address] [place] [address] [employer]er[employer] Family Medicine 09/14/24 Hot Baller Relationship Specialty Start Date End Date Humberto Jackson MD [address] [place] [address] PCP - General Family Medicine 05/06/14 Dominik Judge APRN.MULTIPLE COIL WINDER [address] [place] [address] [employer]er[employer] Family Medicine 09/14/24 Kenyatta Castaneda PA-C [address] [place] [address] Waiter/Waitress [employer] Family [facility] 09/14/24 Hot Baller Relationship Specialty Start Date End Date Humberto Jackson MD [address] [place] [address] PCP - General Family Medicine 05/06/14 Dominik Judge, GHULAM.MULTIPLE COIL WINDER [address] [place] [address] Waiter/Waitress [employer] Family Medicine 09/14/24 Kenyatta Castaneda PA-C [address] [place] [address] [facility] 09/14/24 Hot Baller Relationship Specialty Start Date End Date Humberto Jackson MD [address] [place] [address] PCP - General Family Medicine 05/06/14 Dominik Judge, JAVA MANAGER.MULTIPLE COIL WINDER [address] [place] [address] Waiter[employer] Family [facility] 09/14/24 Kenyatta Castaneda PA-C [address] [place] [address] Waiter/Waitress [employer] Family Medicine 09/14/24 Hot Baller Relationship Specialty Start Date End Date Humberto Jackson MD [address] [facility] [place] [address] PCP - General Family Medicine 05/06/14 Dominik Judge, GHULAM.MULTIPLE COIL WINDER [address] [facility] [place] [address] Waiter/Waitress [employer] Family Medicine 09/14/24 Kenyatta Castaneda PA-C [address] [facility] [place] [address] Waiter/Waitress [employer] Family Medicine 09/14/24 Hot Baller Relationship Specialty Start Date End Date Humberto Jackson MD [address] [facility] [place] [address] PCP - General Family Medicine 05/06/14 Dominik Judge, JAVA MANAGER.MULTIPLE COIL WINDER [address] [facility] [place] [address] Waiter/[employer]ress [employer] Family Medicine 09/14/24 Kenyatta Castaneda PA-C [address] [facility] [place] [address] Waiter/Waitress [employer] Family Medicine 09/14/24 Hot Baller Relationship Specialty Start Date End Date Humberto Jackson MD [address] [facility] [place] [address] PCP - General Family Medicine 05/06/14 Dominik Judge JAVA MANAGER.MULTIPLE COIL WINDER [address] [facility] [place] [address] Waiter/Waitress [employer] Family Medicine 09/14/24 Kenyatta Castaneda PA-C [address] [facility] [place] [address] Waiter/Waitress [employer] Family Medicine 09/14/24 Hot Baller Relationship Specialty Start Date End Date Humberto Jackson MD [address] [place] [address] PCP - General Family Medicine 05/06/14 Dominik Judge APRN.MULTIPLE COIL WINDER [address] [place] [address] Waiter/Waitress [employer] Family Medicine 09/14/24 Kenyatta Castaneda PA-C [address] [place] [address] Waiter/[employer]ress [employer] Family Medicine 09/14/24 Hot Baller Relationship Specialty Start Date End Date Humberto Jackson MD [address] [place] [address] PCP - General Family Medicine 05/06/14 Dominik Judge APRN.MULTIPLE COIL WINDER [address] [place] [address] Waiter/Waitress [employer] Family Medicine 09/14/24 Kenyatta Castaneda PA-C [address] [place] [address] Waiter/Waitress [employer] Family Medicine 09/14/24 Hot Baller Relationship Specialty Start Date End Date Humberto Jackson MD [address] [place] [address] PCP - General Family Medicine 05/06/14 Dominik Judeg, GHULAM.MULTIPLE COIL WINDER [address] [place] [address] Waiter/Waitress [employer] Family Medicine 09/14/24 Kenyatta Castaneda PA-C [address] [facility] [place] [address] Waiter/Waitress [employer] Family Medicine 09/14/24 Hot Baller Relationship Specialty Start Date End Date Humberto Jackson MD [address] [facility] [place] [address] PCP - General Family Medicine 05/06/14 Dominik Judge, GHULAM.MULTIPLE COIL WINDER [address] [place] [address] Waiter/Waitress [employer] Family Medicine 09/14/24 Kenyatta Castaneda PA-C [address] [place] [address] Waiter/Waitress [employer] Family Medicine 09/14/24 Hot Baller Relationship Specialty Start Date End Date Humberto Jackson MD [address] [place] [address] PCP - General Family Medicine 05/06/14 Dominik Judge, JAVA MANAGER.MULTIPLE COIL WINDER [address] [place] [address] Waiter/Waitress [employer] Family Medicine 09/14/24 Kenyatta Castaneda PA-C [address] [facility] [place] [address] Waiter/Waitress [employer] Family Medicine 09/14/24 Hot Baller Relationship Specialty Start Date End Date Humberto Jackson MD [address] [facility] [place] [address] PCP - General Family Medicine 05/06/14 Dominik Judge, JAVA MANAGER.MULTIPLE COIL WINDER [address] [place] [address] Waiter/Waitress [employer] Family Medicine 09/14/24 Kenyatta Castaneda PA-C [address] [place] [address] Waiter/Waitress [employer] Family Medicine 09/14/24 Hot Baller Relationship Specialty Start Date End Date Humberto Jackson MD [address] [place] [address] PCP - General Family Medicine 05/06/14 Dominik Judge APRN.MULTIPLE COIL WINDER [address] [place] [address] Waiter/Waitress [employer] Family Medicine 09/14/24 Kenyatta Castaneda PA-C [address] [place] [address] Waiter/Waitress [employer] Family Medicine 09/14/24 Hot Baller Relationship Specialty Start Date End Date Humberto Jackson MD [address] [place] [address] PCP - General Family Medicine 05/06/14 Dominik Judge APRN.MULTIPLE COIL WINDER [address] [place] [address] Waiter/Waitress [employer] Family Medicine 09/14/24 Kenyatta Castaneda PA-C [address] [place] [address] Waiter/Waitress [employer] Family Medicine 09/14/24 Hot Baller Relationship Specialty Start Date End Date Humberto Jackson MD [address] [place] [address] PCP - General Family Medicine 05/06/14 Dominik Judge, JAVA MANAGER.MULTIPLE COIL WINDER [address] [place] [address] Waiter/Waitress [employer] Family Medicine 09/14/24 Kenyatta Castaneda PA-C [address] [place] [address] Waiter/Waitress [employer] Family Medicine 09/14/24 Hot Baller Relationship Specialty [place] [address] [place] [address] PCP - General Family Medicine 05/06/14 Dominik Judge, JAVA MANAGER.MULTIPLE COIL WINDER [address] [place] [address] Waiter/Waitress [employer] Family Medicine 09/14/24 Kenyatta Castaneda PA-C [address] [place] [address] [facility] 09/14/24 Hot Baller Relationship Specialty Start Date End Date Humberto Jackson MD [address] [place] [address] PCP - General Family Medicine 01/13/25 Dominik Judge, JAVA MANAGER.MULTIPLE COIL WINDER [address] [place] [address] Waiter/Waitress Caf[employer] Family Medicine 09/14/24 Kenyatta Castaneda PA-C [address] [place] [address] Waiter/Waitress Cafeteria Family Medicine 09/14/24 Hot Baller Relationship Specialty Start Date End Date Humberto Jackson MD [address] [place] [address] PCP - General Family Medicine 01/13/25 Dominik Judge APRN.MULTIPLE COIL WINDER [address] [place] [address] Waiter/Waitress Cafeteria Family Medicine 09/14/24 Kenyatta Castaneda PA-C [address] [place] [address] Waiter/Waitress Cafeteria Family Medicine 09/14/24 Hot Baller Relationship Specialty Start Date End Date Humberto Jackson MD [address] [place] [address] PCP - General Family Medicine 01/13/25 Dominik Judge APRN.MULTIPLE COIL WINDER [address] [place] [address] Waiter/Waitress Cafeteria Family Medicine 09/14/24 Kenyatta Castaneda PA-C [address] [place] [address] Waiter/Waitress Cafeteria Family Medicine 09/14/24 Hot Baller Relationship Specialty Start Date End Date Humberto Jackson MD [address] [place] [address] PCP - General Family Medicine 01/13/25 Dominik Judge APRN.MULTIPLE COIL WINDER [facility] [place] [address] Waiter/Waitress Cafeteria Family Medicine 09/14/24 Kenyatta Castaneda PA-C [address] [place] [address] [facility] Hot Baller Relationship Specialty Start Date End Date Humberto Jackson MD [address] [place] [address] PCP - General Family Medicine 01/13/25 Dominik Judge APRN.MULTIPLE COIL WINDER [address] [place] [address] [facility] 09/14/24 Kenyatta Castaneda PA-C [address] [place] [address] [facility] 09/14/24 Hot Baller Relationship Specialty Start Date End Date Humberto Jackson MD [address] [place] [address] PCP - General Family Medicine 01/13/25 Dominik Judge APRN.MULTIPLE COIL WINDER [address] [place] [address] [facility] 09/14/24 Kenyatta Castaneda PA-C [address] [place] [address] [facility] 09/14/24 Hot Baller Relationship Specialty Start Date End Date Humberto Jackson MD [address] [place] [address] PCP - General Family Medicine 01/13/25 Dominik Judge, GHULAM.MULTIPLE COIL W[employer]ER [facility] [place] [address] [employer]er/[employer]ress [facility] Family [facility] 09/14/24 02/23/25 Kenyatta Castaneda PA-C [address] [place] [address] Waiter/Waitress [employer] [facility] 09/14/24 Hot Baller Relationship Specialty Start Date End Date Humberto Jackson MD [address] [place] [address] PCP - General Family Medicine 01/13/25 Kenyatta Castaneda PA-C [address] [place] [address] [employer]er[employer] [facility] 09/14/24 Hot Baller Relationship Specialty Start Date End Date Humberto Jackson MD [address] [place] [address] PCP - General Family Medicine 01/13/25 Kenyatta Castaneda PA-C [address] [place] [address] [employer]er/[employer]ress [employer] [facility] 09/14/24 Hot Baller Relationship Specialty Start Date End Date Humberto Jackson MD [address] [place], [place] 137801 PCP - General Family Medicine 01/13/25 Kenyatta Castaneda PA-C [address] [place] [address] [employer]er[employer]ress [employer] [facility] 09/14/24 Hot Baller Relationship Specialty Start Date End Date Humberto Jackson MD [address] [place] [address] PCP - General Family Medicine 05/06/14 01/12/25 Humberto Jackson MD [address] [place] [address] PCP - General Family Medicine 01/13/25 Dominik Judge APRN.MULTIPLE [employer] [address] [place] [address] [employer]er[employer] [facility] [facility] 09/14/24 02/23/25 Kenyatta Castaneda PA-C [address] [place] [address] [employer] [facility] 09/14/24 Hot Baller Relationship Specialty Start Date End Date Humberto Jackson MD [address] [place] [address] PCP - General Family Medicine 01/13/25 Dominik Judge APRN.MULTIPLE [employer] [address] [place] [address] [employer] [facility] Family [facility] 03/10/25 Kenyatta Castaneda PA-C [facility] [place] [address] [employer]er[employer]ress [facility] Family [facility] 03/10/25 Hot Baller Relationship Specialty Start Date End Date Humberto Jackson MD [address] [place] [address] PCP - General Family Medicine 01/13/25 Dominik Judge APRN.MULTIPLE [employer] [facility] [place] [address] [employer]er[employer] [facility] Family [facility] 03/10/25 Kenyatta Castaneda PA-C [address] [place] [address] [employer]er/Waitress [facility] Family [facility] 03/10/25 Hot Baller Relationship Specialty Start Date End Date Humberto Jackson MD [address] [place], [place] [id number] PCP - General Family Medicine 01/13/25 Dominik Judge APRN.MULTIPLE CO[employer] WINDER [address] [place] [address] [id number] Waiter[employer]Waitress [facility] Family [facility] 03/10/25 Kenyatta Castaneda PA-C [address] [place] [address] [id number] [facility] 03/10/25 Team Status: Active Member Role Status Dates Dr. Humberto Jackson MD Primary Care Provider Active Start: March 16, 2025 Dr. Macey Merchant , Emergency Provider Active S tart: March 16, 2025 Dr. Tia Bergman , Admit Provider Active Start : March 16, 2025 Dr. Tia Bergman , Attending Provider Active S tart: March 16, 2025 Hot Baller Relationship Specialty Start Date End Date Humberto Jackson MD [address] [place], [place] [address]47[address] PCP - General Family Medicine 01/13/25 Dominik Judge APRN.MULTIPLE COIL WINDER [address] [place] [address] [id number] [facility] 03/10/25 Kenyatta Castaneda PA-C [address] [place], [place] [address] [facility] 03/10/25 Hot Baller Relationship Specialty Start Date End Date Humberto Jackson MD [address], [place] [id number] PCP - General Family Medicine 01/13/25 Dominik Judge, GHULAM.MULTIPLE COIL WINDER [address] [place] [address] Waiter/Waitress [facility] Family Medicine 03/10/25 Kenyatta Castaneda PA-C [address] [place] [address] Waiter/Waitress [facility] Family [facility] 03/10/25 Hot Baller Relationship Specialty Start Date End Date Humberto Jackson MD [address] [place] [address] PCP - General Family Medicine 01/13/25 Dominik Judge, GHULAM.MULTIPLE COIL WINDER [address] [place] [address] Waiter[employer]Waitress [facility] Family [facility] 03/10/25 Kenyatta Castaneda PA-C [address] [place] [address] [facility] 03/10/25 Hot Baller Relationship Specialty Start Date End Date Humberto Jackson MD [address] [place] [address] PCP - General Family Medicine 01/13/25 Dominik Judge, JAVA MANAGER.MULTIPLE COIL WINDER [facility] [place] [address] Waiter/Waitress [employer]ia Family Medicine 03/10/25 Kenyatta Castaneda PA-C [address] [place] [address] [employer]er[employer]ress [employer] Family Medicine 03/10/25 Team Status: Active Member Role Status Dates Dr. Humberto Jackson MD Primary Care Provider Active Start: March 21, 2025 Dr. Macey Merchant , DO Emergency Provider Active S tart: March 21, 2025 Dr. Tia Bergman , DO Admit Provider Active Start : March 21, 2025 Dr. Tia Bergman , DO Other Provider Active Start : March 21, 2025 Dr. Jacky Jaimes DO Attending Provider Active Start: March 21, 2025 Dr. Jacky Jaimes DO Other Provider Active S tart: March 21, 2025 Team Status: Active Member Role Status Dates Dr. Humberto Jackson MD Primary Care Provider Active Start: March 21, 2025 Dr. Macey Merchant , DO Emergency Provider Active S tart: March 21, 2025 Dr. Tia Bergman , Admit Provider Active Start : March 21, 2025 Dr. Tia Bergman , Other Provider Active Start : March 21, 2025 Dr. Jacky Jaimes DO Other Provider Active S tart: March 21, 2025 Dr. Jonathan Martinez , Attending Provider Active Start: March 21, 2025 Team Status: Active Member Role Status Dates Dr. Humberto Jackson MD Primary Care Provider Active Start: March 25, 2025 Dr. Jacky Jaimes DO Attending Provider Active Start: March 25, 2025 Dr. Jacky Jaimes DO Referring Provider Active Start: March 25, 2025 Team Status: Inactive Member Role Status Dates Dr. Humberto Jackson MD Primary Care Provider Active Start: March 27, 2025 End: March 27, 2025 Dr. Cary Chandra MD Attending Provider Active Start: March 27, 2025 End: March 27, 2025 Dr. Jacky Jaimes DO Referring Provider Active Start: March 27, 2025 End: March 27, 2025 Hot Baller Relationship Specialty Start Date End Date Humberto Jackson MD [address] [place] [address] PCP - General Family Medicine 01/13/25 Dominik Judge APRN.CNP [address] [place] [address] [facility] 03/10/25 Kenyatta Castaneda PA-C [address] [place] [address] [facility] 03/10/25 Team Status: Active Member Role Status Dates Dr. Humberto Jackson MD Primary Care Provider Active Start: March 17, 2025 Dr. Macey Merchant , Emergency Provider Active S tart: March 17, 2025 Dr. Tia Bergman , Admit Provider Active Start : March 17, 2025 Dr. Tia Bergman , DO Other Provider Active Start : March 17, 2025 Dr. Jacky Jaimes , Referring Provider Active Start: March 17, 2025 Dr. Jacky Jaimes , Other Provider Active S tart: March 17, 2025 Dr. Jonathan Martinez , Attending Provider Active Start: March 17, 2025 Team Status: Inactive Member Role Status Dates Dr. Humberto Jackson MD Primary Care Provider Active Start: March 25, 2025 End: March 25, 2025 Dr. Jacky Jaimes DO Attending Provider Active Start: March 25, 2025 End: March 25, 2025 Dr. Jacky Jaimes DO Referring Provider Active Start: March 25, 2025 End: March 25, 2025 Team Status: Active Member Role Status Dates Dr. Humberto Jackson MD Primary Care Provider Active Start: March 28, 2025 Dr. Cary Chandra MD Attending Provider Active Start: March 28, 2025 Dr. Cary Chandra MD Referring Provider Active Start: March 28, 2025 Hot Baller Relationship Specialty Start Date End Date Humberto Jackson MD [address] [place] [address] [id number] PCP - General Family Medicine 01/13/25 Dominik Judge APRN.CNP [address] [place] [address] [id number] [facility] 03/10/25 Kenyatta Castaneda PA-C [address] [place] [address] [facility] Hot Baller Relationship Specialty Start Date End Date Humberto Jackson MD [address] [place] [address] PCP - General Family Medicine 01/13/25 Dominik Judge APRN.MULTIPLE COIL WINDER [address] [place] [address] [facility] 03/10/25 Kenyatta Castaneda PA-C [facility] [place] [address] [facility] 03/10/25 Team Status: Active Member Role/Relationship Status Dates Dr. Humberto Jackson MD Primary Care Provider Active Team Status: Inactive Member Role/Relationship Status Dates Dr. Humberto Jackson MD Primary Care Provider Active Start: March 16, 2025 End: March 21, 2025 Dr. Macey Merchant DO Emergency Provider Active S tart: March 16, 2025 End: March 21, 2025 Dr. Tia Bergman DO Admit Provider Active Start : March 16, 2025 End: March 21, 2025 Dr. Tia Bergman DO Other Provider Active Start : March 16, 2025 End: March 21, 2025 Dr. Jacky Jaimes DO Attending Provider Active Start: March 16, 2025 End: March 21, 2025 Team Status: Active Member Role/Relationship Status Dates Dr. Humberto Jackson MD Primary Care Provider Active Start: March 16, 2025 Dr. Macey Merchant DO Emergency Provider Active S tart: March 16, 2025 Dr. Tia Bergman DO Admit Provider Active Start : March 16, 2025 Dr. Tia Bergman DO Attending Provider Active S tart: March 16, 2025 Dr. Tia Bergman , Other Provider Active Start : March 16, 2025 Team Status: Active Member Role/Relationship Status Dates Dr. Humberto Jackson MD Primary Care Provider Active Start: March 17, 2025 Dr. Macey Merchant , DO Emergency Provider Active S tart: March 17, 2025 Dr. Tia Bergman , DO Admit Provider Active Start : March 17, 2025 Dr. Tia Bergman , DO Other Provider Active Start : March 17, 2025 Dr. Jacky Jaimes , DO Referring Provider Active Start: March 17, 2025 Dr. Jacky Jaimes , DO Other Provider Active S tart: March 17, 2025 Dr. Jonathan Martinez , DO Attending Provider Active Start: March 17, 2025 Team Status: Active Member Role/Relationship Status Dates Dr. Humberto Jackson MD Primary Care Provider Active Start: March 17, 2025 Dr. Macey Merchant , DO Emergency Provider Active S tart: March 17, 2025 Dr. iTa Bergman , DO Admit Provider Active Start : March 17, 2025 Dr. Tia Bergman , DO Other Provider Active Start : March 17, 2025 Dr. Jacky Jaimes , DO Attending Provider Active Start: March 17, 2025 Dr. Jacky Jaimes , DO Other Provider Active S tart: March 17, 2025 Team Status: Active Member Role/Relationship Status Dates Dr. Humberto Jackson MD Primary Care Provider Active Start: March 18, 2025 Dr. Macey Merchant DO Emergency Provider Active S tart: March 18, 2025 Dr. Tia Bergman , DO Admit Provider Active Start : March 18, 2025 Dr. Tia Bergman , DO Other Provider Active Start : March 18, 2025 Dr. Jacky Jaimes , Attending Provider Active Start: March 18, 2025 Dr. Jacky Jaimes , DO Other Provider Active S tart: March 18, 2025 Team Status: Active Member Role/Relationship Status Dates Dr. Humberto Jackson MD Primary Care Provider Active Start: March 19, 2025 Dr. Macey Merchant , DO Emergency Provider Active S tart: March 19, 2025 Dr. Tia Bergman , DO Admit Provider Active Start : March 19, 2025 Dr. Tia Bergman , DO Other Provider Active Start : March 19, 2025 Dr. Jacky Jaimes , DO Referring Provider Active Start: March 19, 2025 Dr. Jacky Jaimes , DO Other Provider Active S tart: March 19, 2025 Dr. Jonathan Martinez , DO Attending Provider Active Start: March 19, 2025 Team Status: Active Member Role/Relationship Status Dates Dr. Humberto Jackson MD Primary Care Provider Active Start: March 19, 2025 Dr. Macey Merchant , Emergency Provider Active S tart: March 19, 2025 Dr. Tia Bergman , DO Admit Provider Active Start : March 19, 2025 Dr. Tia Bergman DO Other Provider Active Start : March 19, 2025 Dr. Jacky Jaimes , DO Attending Provider Active Start: March 19, 2025 Dr. Jacky Jaimes , DO Other Provider Active S tart: March 19, 2025 Team Status: Active Member Role/Relationship Status Dates Dr. Humberto Jackson MD Primary Care Provider Active Start: March 20, 2025 Dr. Macey Merchant , Emergency Provider Active S tart: March 20, 2025 Dr. Tia Bergman , Admit Provider Active Start : March 20, 2025 Dr. Tia Bergman , DO Other Provider Active Start : March 20, 2025 Dr. Jacky Jaimes DO Referring Provider Active Start: March 20, 2025 Dr. Jacky Jaimes , DO Other Provider Active S tart: March 20, 2025 Dr. Jonathan Martinez , DO Attending Provider Active Start: March 20, 2025 Team Status: Active Member Role/Relationship Status Dates Dr. Humberto Jackson MD Primary Care Provider Active Start: March 20, 2025 Dr. Macey Merchant DO Emergency Provider Active S tart: March 20, 2025 Dr. Tia Bergman DO Admit Provider Active Start : March 20, 2025 Dr. Tia Bergman , DO Other Provider Active Start : March 20, 2025 Dr. Jacky Jaimes DO Attending Provider Active Start: March 20, 2025 Dr. Jacky Jaimes DO Other Provider Active S tart: March 20, 2025 Team Status: Active Member Role/Relationship Status Dates Dr. Humberto Jackson MD Primary Care Provider Active Start: March 21, 2025 Dr. Macey Merchant DO Emergency Provider Active S tart: March 21, 2025 Dr. Tia Bergman DO Admit Provider Active Start : March 21, 2025 Dr. Tia Bergman DO Other Provider Active Start : March 21, 2025 Dr. Jacky Jaimes DO Attending Provider Active Start: March 21, 2025 Dr. Jacky Jaimes DO Other Provider Active S tart: March 21, 2025 Team Status: Active Member Role/Relationship Status Dates Dr. Humberto Jackson MD Primary Care Provider Active Start: March 21, 2025 Dr. Macey Merchant , Emergency Provider Active S tart: March 21, 2025 Dr. Tia Bergman DO Admit Provider Active Start : March 21, 2025 Dr. Tia Bergman DO Other Provider Active Start : March 21, 2025 Dr. Jacky Jaimes DO Referring Provider Active Start: March 21, 2025 Dr. Jacky Jaimes DO Other Provider Active S tart: March 21, 2025 Dr. Jonathan Martinez DO Attending Provider Active Start: March 21, 2025 Team Status: Inactive Member Role/Relationship Status Dates Dr. Humberto Jackson MD Primary Care Provider Active Start: March 25, 2025 End: March 25, 2025 Dr. Jacky Jaimes DO Attending Provider Active Start: March 25, 2025 End: March 25, 2025 Dr. Jacky Jaimes DO Referring Provider Active Start: March 25, 2025 End: March 25, 2025 Team Status: Inactive Member Role/Relationship Status Dates Dr. Humberto Jackson MD Primary Care Provider Active Start: March 27, 2025 End: March 27, 2025 Dr. Cary Chandra MD Attending Provider Active Start: March 27, 2025 End: March 27, 2025 Dr. Jacky Jaimes DO Referring Provider Active Start: March 27, 2025 End: March 27, 2025 Team Status: Active Member Role/Relationship Status Dates Dr. Humberto Jackson MD Primary Care Provider Active Start: April 01, 2025 Dr. Cary Chandra MD Attending Provider Active Start: April 01, 2025 Dr. Cary Chandra MD Referring Provider Active Start: April 01, 2025 Team Status: Active Member Role/Relationship Status Dates Dr. Humberto Jackson MD Primary Care Provider Active Start: April 04, 2025 Dr. Cary Chandra MD Attending Provider Active Start: April 04, 2025 Dr. Cary Chandra MD Referring Provider Active Start: April 04, 2025 Team Status: Inactive Member Role/Relationship Status Dates Dr. Humberto Jackson MD Primary Care Provider Active Start: April 07, 2025 End: April 07, 2025 Dr. Maranda Hansen MD Attending Provider Active Start: April 07, 2025 End: April 07, 2025 Dr. Cary Chandra MD Referring Provider Active Start: April 07, 2025 End: April 07, 2025 Team Status: Inactive Member Role/Relationship Status Dates Dr. Humberto Jackson MD Primary Care Provider Active Start: April 08, 2025 End: April 08, 2025 Dr. Humberto Jackson MD Referring Provider Active Start: April 08, 2025 End: April 08, 2025 Dr. Cary Chandra MD Attending Provider Active Start: April 08, 2025 End: April 08, 2025 Goals (unrecognized section and content) Goals may be documented in a n alternate sectionGoals may be documented in an alternate section FOR RECORDS PERTAINING TO PATIENTS [...] BE BASED ON THE PRIMARY CLINICAL RECORDS. [employer] provides no warranty or guarantee of the accuracy or completeness of information in this document.
== END | disposition home or self-care (01) ==
LOC: RAD 14:38
PROVIDERS: PCP Family Medicine; Referring Provider Internal Medicine Hematology & Oncology; Visit Provider Internal Medicine Hematology & Oncology
DX: C79.51 Secondary malignant neoplasm of bone (principal); C78.6 Secondary malignant neoplasm of retroperitoneum and peritoneum; C16.3 Malignant neoplasm of pyloric antrum
CPT/HCPCS: 74018

== ENCOUNTER 2025-04-09 08:34 | Day surgery (SDC) | payer BC, SELFPAY ==
[2025-04-09] VITALS (9 sets, daily range): BP systolic 108–128; BP diastolic 72–91; PULSE 72–88; RESP 14–18; TEMP 36.6–36.9; O2SAT 91–99; BMI 33.5
--- NOTE | 2025-04-09 08:47 | PCM.HP.BLA ---
History and Physical Date of Admission: 04/09/25 Date of Service: 04/07/25 MR#: [id number] Acct: [id number] Name: BIANCA DELAROSA Rep #: [id number] : 1975 Provider: Dr. Maranda Hansen MD Age/Sex: 49/M Location: [facility] Status: Signed Intake Vital Signs 03/27/2515:32 04/07/2513:53 Height 6 ft 2 in 6 ft 2 in Weight: 261 lb BMI 33.5 BP 121/79 H Blood Pressure Location Rt brachial Position Sitting Respiration 17 Pulse 82 Pulse Source Monitor Pulse Oximetry (%) 100 Oxygen Delivery Method room air Intake Visit Reasons: PORT PLACEMENT Chief Complaint: port placement Is patient in pain?: No Allergies citalopram Allergy (Unknown, Verified 04/07/25 13:54) Unknownvenlafaxine Allergy (Unknown, Verified 04/07/25 13:54) Unknownmetoclopramide (From Reglan) Allergy (Verified 04/07/25 13:54) weirds me outsertraline (From Zoloft) Allergy (Verified 04/07/25 13:54) sexual side effectstopiramate (From Topamax) Allergy (Verified 04/07/25 13:54) Unknown Medications ?Medication ?Instructions ?Recorded ?Confirmed ?Type esomeprazole magnesium 40 mg 40 mg PO QHS gerd 10/10/17 04/07/25 History capsule,delayed release fenofibrate 50 mg capsule 54 mg PO DAILY cholesterol 10/10/17 04/07/25 History multivitamin 1 ea PO DAILY supplement 10/10/17 04/07/25 History metformin 500 mg tablet 1,000 mg PO BID diabetes 03/22/18 04/07/25 History doxepin 10 mg capsule 10 mg PO QHS insomnia 10/20/18 04/07/25 History olanzapine 2.5 mg tablet 2.5 mg PO QHS insomnia 10/20/18 04/07/25 History zonisamide 25 mg capsule 25 mg PO DAILY unknown 10/20/18 04/07/25 History buspirone 15 mg tablet mg PO BID anxiety 04/14/23 04/07/25 History duloxetine 60 mg capsule,delayed mg PO DAILY depression 04/14/23 04/07/25 History release insulin lispro protamine-lispro subcut Type 2 DM 04/14/23 04/07/25 History 100 unit/mL (75-25) subcutaneous pen atorvastatin 80 mg tablet 80 mg PO DAILY hypercholestremia 03/16/25 04/07/25 History dexmethylphenidate 20 mg 20 mg PO DAILY on hold 03/16/25 04/07/25 History capsule,extended release -34 duloxetine 30 mg capsule,delayed 30 mg PO DAILY depression 03/16/25 04/07/25 History release ferrous sulfate 325 mg (65 mg 325 mg PO BID anemia 03/16/25 04/07/25 History iron) tablet fluticasone propionate 50 1 spray NASAL DAILY PRN allergic 03/21/25 04/07/25 Rx mcg/actuation nasal symptoms #0 grams spray,suspension metoclopramide HCl 10 mg tablet 10 mg PO TID #30 tabs 03/21/25 04/07/25 Rx (Reglan) ondansetron HCl 8 mg tablet 8 mg PO Q6H PRN PRN nausea and 03/21/25 04/07/25 Rx vomiting #40 tabs PFSH Medical History (Updated 04/07/25 @ 13:53 by Karla Ross) Weight loss Symptomatic anemia Carcinomatosis Gastric mass Anemia Lung nodule 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 History of rectal abscess Multiple thyroid nodules Restrictive airway disease Abnormal chest CT Pneumonia Acute respiratory failure Shortness of breath Community acquired pneumonia Chronic headache Acute respiratory failure with hypoxia GERD (gastroesophageal reflux disease) Anxiety and depression Diabetes mellitus, type II Obesity (BMI 30-39.9) HLD (hyperlipidemia) MIKE (obstructive sleep apnea) Surgical History (Updated 03/29/25 @ 00:01 by Justin Hampton) Hx of drainage of abscess (~04/2023) Hx of appendectomy Hx of tonsillectomy Family History Father Colon cancer at age 53 Heart disease Myocardial infarction Social History household members: spouse housing: house current occupational status: employed 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 Patient has been with oncology tomorrow unsure of exact date for start of treatment. ROS General General: Yes weight change; No appetite, fatigue, colon cancer, breast cancer or weakness HEENT HEENT: No difficulty swallowing, eye injury, eye surgery, swollen glands or hoarseness Endo Endocrine: Yes diabetes mellitus; No thyroid disease, thyroid cancer, Hair loss, heat intolerance or cold intolerance Skin Skin: No rash or changing moles Musc Musculoskeletal: No back problems, arthritis, rheumatoid arthritis, gout or joint pain Cardio Cardiovascular: No murmur, pacemaker, heart disease, atrial fibrillation, high blood pressure, heart attack, heart stent, palpitations, shortness of breath with exertion or chest pain Psych Psychiatric: Yes depression and anxiety Resp Respiratory: No shortness of breath, Yes sleep apnea, No cough, No COPD, No asthma, No emphysema and No wheezing Gastro Gastrointestinal: Yes abdominal pain, No nausea or vomiting, No diarrhea, No constipation, No blood in stool, Yes acid reflux, No hemorrhoids, Yes ulcers, No gallbladder problem and No black,tarry stools Kofi Hematologic: No blood thinners, No blood disorders, No bleeding, Yes anemia and No blood clots Neuro Neurologic: No system reviewed and no additional complaints, except as documented, No as per HPI, No abnormal gait, No abnormal hearing, No abnormal movements, No abnormal speech, No behavioral changes, No burning sensations, No confusion, No convulsions, No disequilibrium, No dizziness, No localized weakness, No frequent falls, No headache(s), No lack of coordination, No loss of vision, No memory loss, No numbness, No other visual disturbances, No radicular pain, No restless legs, No sensory deficit, No syncope, No tingling, No tremor(s), No weakness and No other Exam Const General: cooperative, healthy appearing, comfortable and no acute distress HENCA Head: normocephalic and atraumatic Neck Neck: supple Chest Other: Palpation bilateral upper chest normal Resp Effort & Inspection: normal respiratory effort Cardio Rate: regular rate GI Inspection: non-distended Palpation: soft Skin General: no rashes or lesions noted Neuro General: CN's II-XI intact bilaterally Extrem General: normal to inspection Psych Mental Status: mental status grossly normal Attitude: cooperative Assessment and Plan Assessment and Plan (1) Encounter for insertion of venous access port: Status: Acute (2) Gastric cancer: Status: Acute Qualifiers: 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 Right possible left IJ Patient has been counseled as to the risks/benefits of the procedure. I have explained the risks of the surgery, including but not limited to: infection, bleeding, injury to any blood vessels/nerves, injury to lungs (such as pneumothorax or hemothorax and need for chest tube), not having any access, nonfunctioning of port due to thrombosis, infection of port, etc. the patient understands and agrees to proceed. I have answered all the patient's questions to the patient?s satisfaction and the patient has no further questions. Maranda Hansen M.D. Pager: [phone] [facility] [address] [place] [address], [address] [place] [address] Office: 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
--- NOTE | 2025-04-09 08:47 | PCM.HP.BLA ---
History and Physical Date of Admission: 04/09/25 Date of Service: 04/07/25 MR#: [id number] Acct: [id number] Name: BIANCA DELAROSA Rep #: [id number] : 1975 Provider: Dr. Maranda Hansen MD Age/Sex: 49/M Location: [facility] Status: Signed Intake Vital Signs 03/27/2515:32 04/07/2513:53 Height 6 ft 2 in 6 ft 2 in Weight: 261 lb BMI 33.5 BP 121/79 H Blood Pressure Location Rt brachial Position Sitting Respiration 17 Pulse 82 Pulse Source Monitor Pulse Oximetry (%) 100 Oxygen Delivery Method room air Intake Visit Reasons: PORT PLACEMENT Chief Complaint: port placement Is patient in pain?: No Allergies citalopram Allergy (Unknown, Verified 04/07/25 13:54) Unknownvenlafaxine Allergy (Unknown, Verified 04/07/25 13:54) Unknownmetoclopramide (From Reglan) Allergy (Verified 04/07/25 13:54) weirds me outsertraline (From Zoloft) Allergy (Verified 04/07/25 13:54) sexual side effectstopiramate (From Topamax) Allergy (Verified 04/07/25 13:54) Unknown Medications ?Medication ?Instructions ?Recorded ?Confirmed ?Type esomeprazole magnesium 40 mg 40 mg PO QHS gerd 10/10/17 04/07/25 History capsule,delayed release fenofibrate 50 mg capsule 54 mg PO DAILY cholesterol 10/10/17 04/07/25 History multivitamin 1 ea PO DAILY supplement 10/10/17 04/07/25 History metformin 500 mg tablet 1,000 mg PO BID diabetes 03/22/18 04/07/25 History doxepin 10 mg capsule 10 mg PO QHS insomnia 10/20/18 04/07/25 History olanzapine 2.5 mg tablet 2.5 mg PO QHS insomnia 10/20/18 04/07/25 History zonisamide 25 mg capsule 25 mg PO DAILY unknown 10/20/18 04/07/25 History buspirone 15 mg tablet mg PO BID anxiety 04/14/23 04/07/25 History duloxetine 60 mg capsule,delayed mg PO DAILY depression 04/14/23 04/07/25 History release insulin lispro protamine-lispro subcut Type 2 DM 04/14/23 04/07/25 History 100 unit/mL (75-25) subcutaneous pen atorvastatin 80 mg tablet 80 mg PO DAILY hypercholestremia 03/16/25 04/07/25 History dexmethylphenidate 20 mg 20 mg PO DAILY on hold 03/16/25 04/07/25 History capsule,extended release [id number] duloxetine 30 mg capsule,delayed 30 mg PO DAILY depression 03/16/25 04/07/25 History release ferrous sulfate 325 mg (65 mg 325 mg PO BID anemia 03/16/25 04/07/25 History iron) tablet fluticasone propionate 50 1 spray NASAL DAILY PRN allergic 03/21/25 04/07/25 Rx mcg/actuation nasal symptoms #0 grams spray,suspension metoclopramide HCl 10 mg tablet 10 mg PO TID #30 tabs 03/21/25 04/07/25 Rx (Reglan) ondansetron HCl 8 mg tablet 8 mg PO Q6H PRN PRN nausea and 03/21/25 04/07/25 Rx vomiting #40 tabs PFSH Medical History (Updated 04/07/25 @ 13:53 by Karla Ross) Weight loss Symptomatic anemia Carcinomatosis Gastric mass Anemia Lung nodule 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 History of rectal abscess Multiple thyroid nodules Restrictive airway disease Abnormal chest CT Pneumonia Acute respiratory failure Shortness of breath Community acquired pneumonia Chronic headache Acute respiratory failure with hypoxia GERD (gastroesophageal reflux disease) Anxiety and depression Diabetes mellitus, type II Obesity (BMI 30-39.9) HLD (hyperlipidemia) MIKE (obstructive sleep apnea) Surgical History (Updated 03/29/25 @ 00:01 by Justin Hampton) Hx of drainage of abscess (~04/2023) Hx of appendectomy Hx of tonsillectomy Family History Father Colon cancer at age 53 Heart disease Myocardial infarction Social History household members: spouse housing: house current occupational status: employed 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 Patient has been with oncology tomorrow unsure of exact date for start of treatment. ROS General General: Yes weight change; No appetite, fatigue, colon cancer, breast cancer or weakness HEENT HEENT: No difficulty swallowing, eye injury, eye surgery, swollen glands or hoarseness Endo Endocrine: Yes diabetes mellitus; No thyroid disease, thyroid cancer, Hair loss, heat intolerance or cold intolerance Skin Skin: No rash or changing moles Musc Musculoskeletal: No back problems, arthritis, rheumatoid arthritis, gout or joint pain Cardio Cardiovascular: No murmur, pacemaker, heart disease, atrial fibrillation, high blood pressure, heart attack, heart stent, palpitations, shortness of breath with exertion or chest pain Psych Psychiatric: Yes depression and anxiety Resp Respiratory: No shortness of breath, Yes sleep apnea, No cough, No COPD, No asthma, No emphysema and No wheezing Gastro Gastrointestinal: Yes abdominal pain, No nausea or vomiting, No diarrhea, No constipation, No blood in stool, Yes acid reflux, No hemorrhoids, Yes ulcers, No gallbladder problem and No black,tarry stools Kofi Hematologic: No blood thinners, No blood disorders, No bleeding, Yes anemia and No blood clots Neuro Neurologic: No system reviewed and no additional complaints, except as documented, No as per HPI, No abnormal gait, No abnormal hearing, No abnormal movements, No abnormal speech, No behavioral changes, No burning sensations, No confusion, No convulsions, No disequilibrium, No dizziness, No localized weakness, No frequent falls, No headache(s), No lack of coordination, No loss of vision, No memory loss, No numbness, No other visual disturbances, No radicular pain, No restless legs, No sensory deficit, No syncope, No tingling, No tremor(s), No weakness and No other Exam Const General: cooperative, healthy appearing, comfortable and no acute distress HENOK Head: normocephalic and atraumatic Neck Neck: supple Chest Other: Palpation bilateral upper chest normal Resp Effort & Inspection: normal respiratory effort Cardio Rate: regular rate GI Inspection: non-distended Palpation: soft Skin General: no rashes or lesions noted Neuro General: CN's II-XI intact bilaterally Extrem General: normal to inspection Psych Mental Status: mental status grossly normal Attitude: cooperative Assessment and Plan Assessment and Plan (1) Encounter for insertion of venous access port: Status: Acute (2) Gastric cancer: Status: Acute Qualifiers: 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 Right possible left IJ Patient has been counseled as to the risks/benefits of the procedure. I have explained the risks of the surgery, including but not limited to: infection, bleeding, injury to any blood vessels/nerves, injury to lungs (such as pneumothorax or hemothorax and need for chest tube), not having any access, nonfunctioning of port due to thrombosis, infection of port, etc. the patient understands and agrees to proceed. I have answered all the patient's questions to the patient?s satisfaction and the patient has no further questions. Maranda Hansen M.D. Pager: [phone] [facility] [address] [place] [address], [address] [place] [address] Office: 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
[2025-04-09] MEDS: Lactated Ringers 1,000 ML 15 ML IV (09:04)
--- NOTE | 2025-04-09 09:43 | PCM.PRE.AN2 ---
ASA Classification* ASA Classification ASA Classification: 3 Assessment & Plan Anesthesia* Anesthesia Assessment Anesthesia Assessment: Discussed sedation and/or anesthesia options, risks, benefits, and alternatives with patient/parents/legal guardian/POA. Questions invited. The patient/parents/legal guardian/POA seems to understand and agrees to proceed with anesthesia plan. Reviewed the physical assessment, medical history, allergy history and patient home medications list prior to surgery/procedure/anesthetic and documented any changes. Performed airway and anesthesia risk assessments. Anesthesia Type Anesthesia Type: MAC History Source History Obtained from:: Patient and Chart Anesthesia Focused Assessment* Temperature: 98.4 F Pulse Rate: 88 Blood Pressure: 128/91 Respiratory Rate: 16 Pulse Ox: 99 Oxygen Delivery Method: Room Air Airway Assessment Mouth opens: >3 cm Mallampati Score: IV Teeth Condition: Caps/Crowns (Patient has a crown. It is tight. Rest of the teeth are tight.) Neck Range of motion (ROM): Full ROM Labs Anesthesia Preop lab: CBC WBC 7.6 K/mm3 (4.4-11.0) 03/27/25 16:50 03/27/25 RBC 4.06 M/mm3 (4.6-6.2) L 03/27/25 16:50 03/27/25 Hgb 10.3 g/dL (13.0-16.5) L 03/27/25 16:50 03/27/25 Hct 32.3 % (40-54) L 03/27/25 16:50 03/27/25 Plt Count 387 K/mm3 (150-450) 03/27/25 16:50 03/27/25 CHEMISTRY Potassium 3.6 mmol/L (3.3-5.1) 03/27/25 16:50 03/27/25 Sodium 135 mmol/L (133-145) 03/27/25 16:50 03/27/25 Magnesium 2.2 mg/dL (1.5-2.2) 03/17/25 04:09 03/17/25 Phosphorus 3.9 mg/dL (2.7-4.5) 03/17/25 04:09 03/17/25 BUN 9 mg/dL (4-19) 03/27/25 16:50 03/27/25 Creatinine 0.76 mg/dL (0.70-1.20) 03/27/25 16:50 03/27/25 Glucose 150 mg/dL (70-99) H 03/27/25 16:50 03/27/25 POC Glucose 203 mg/dL (74-106) H 04/09/25 08:55 04/09/25 COAG PT 12.8 SECONDS (11.7-14.9) 10/22/18 05:05 10/22/18 Pre-Assessment Diagnosis/Proposed Procedure Planned Operative Procedure(s): IJ PORT PLACEMENT, right possible left Anesthesia History 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 When Was Last Pacemaker Check QUESTION #4 FULL TEXT: You/Your Family Experience fever (hyperthermia) with Anesthesia Last Oral Intake Last Oral intake: Last Oral Intake NPO since 23:00 04/09/25 08:56 Meds taken in AM with sips of No 04/09/25 08:56 water? Meds patient instructed to take am of surgery PONV PONV - evaporator operator: PONV - evaporator operator Female No 04/08/25 09:38 HX of Motion Sickness Yes 04/08/25 09:38 HX of N/V After Surgery Yes 04/08/25 09:38 Non-Smoker Yes 04/08/25 09:38 Duration of Surgery greater No 04/08/25 09:38 than 60 minutes Number of Risk Factors 3 04/08/25 09:38 PONV Score Moderate Risk 04/08/25 09:38 Height & Weight Height & Weight: Anesthesia: Height & Weight Height 6 ft 2.02 in 04/09/25 08:56 Weight: 118.6 kg 04/09/25 08:56 Body Mass Index (BMI) 33.5 04/09/25 08:56 Respiratory Assessment Respiratory Assessment - evaporator operator: Respiratory Tract Infection Hx - evaporator operator Hx Respiratory Tract Infection No 04/08/25 09:38 STOP Sleep Apnea STOP Sleep Apnea - evaporator operator: STOP Sleep Apnea - evaporator operator Hx Hypertension No 04/08/25 09:38 Hx Sleep Apnea Yes: NO MACHINE USED 04/08/25 09:38 CPAP No 04/08/25 09:38 BIPAP No 04/08/25 09:38 Do you snore loudly (louder than talking or can be heard Do you often feel tired/ fatigued/ sleepy during daytime? Has anyone observed you stop breathing during sleep? STOP Results Positive 04/08/25 09:38 QUESTION #5 FULL TEXT : Do you snore loudly (louder than talking or can be heard through closed doors)? 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 Specify any problems Hx of Preganancy in last 3 N/A 04/08/25 09:38 Months Nurse Filling Out Transfusion VCHRISTIN 04/08/25 09:38 & Questions: Date: 04/08/25 04/08/25 09:38 Time: 09:40 04/08/25 09:38 Patient unable to answer at this time (ie. confused, unrespo /Reproduction History /Reproductive History - evaporator operator: /Reproductive Hx- evaporator operator Hx Now No 04/08/25 09:38 Gestational Age (in weeks): EDC: Hx Hx Para Hx Section SAB No 04/08/25 09:38 Active Medications Active Medications: Current Medications Generic Name Dose Route Start Last Admin Trade Name Freq PRN Reason Stop Dose Admin Lactated Ringer's 1,000 mls @ 15 mls/hr 04/09/25 09:00 04/09/25 09:04 IV 15 mls/hr .Q48H SIENA Administration [facility] Medical History Wears glasses Depression Anxiety Alcohol use Diabetes Fatty liver Anemia High cholesterol Injury of head and neck History of ulceration Gastric reflux Non-smoker Sleep apnea History of echocardiogram History of stress test Lung nodule 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 Weight loss Symptomatic anemia Carcinomatosis Gastric mass Anemia History of rectal abscess Multiple thyroid nodules Restrictive airway disease Abnormal chest CT Pneumonia Acute respiratory failure Shortness of breath Community acquired pneumonia Chronic headache Acute respiratory failure with hypoxia GERD (gastroesophageal reflux disease) Anxiety and depression Diabetes mellitus, type II Obesity (BMI 30-39.9) HLD (hyperlipidemia) MIKE (obstructive sleep apnea) Home Medications ?Medication ?Instructions ?Recorded ?Last Taken ?Type esomeprazole magnesium 40 mg 40 mg PO QHS gerd 10/10/17 04/08/25 History capsule,delayed release fenofibrate 50 mg capsule 54 mg PO DAILY cholesterol 10/10/17 04/08/25 History multivitamin 1 ea PO DAILY supplement 10/10/17 04/08/25 History metformin 500 mg tablet 1,000 mg PO BID diabetes 03/22/18 04/08/25 History doxepin 10 mg capsule 10 mg PO QHS insomnia 10/20/18 04/08/25 History olanzapine 2.5 mg tablet 2.5 mg PO QHS insomnia 10/20/18 03/15/25 22:00 History 2.5 mg zonisamide 25 mg capsule 25 mg PO DAILY unknown 10/20/18 04/08/25 History buspirone 15 mg tablet 15 mg PO BID anxiety 04/14/23 04/08/25 History duloxetine 60 mg capsule,delayed 60 mg PO DAILY depression 04/14/23 04/08/25 History release atorvastatin 80 mg tablet 80 mg PO DAILY hypercholestremia 03/16/25 Unknown History dexmethylphenidate 20 mg 20 mg PO DAILY 03/16/25 04/08/25 History capsule,extended release -21 ferrous sulfate 325 mg (65 mg 325 mg PO BID anemia 03/16/25 Unknown History iron) tablet ondansetron HCl 8 mg tablet 8 mg PO Q6H PRN PRN nausea and 03/21/25 04/08/25 Rx vomiting #40 tabs metoclopramide HCl 10 mg tablet 5 mg PO TID 04/08/25 04/08/25 History (Reglan) Allergy/AdvReac Type Severity Reaction Status Date / Time citalopram Allergy Unknown Unknown Verified 04/08/25 13:32 venlafaxine Allergy Unknown Unknown Verified 04/08/25 13:32 metoclopramide (From Reglan) Allergy weirds me Verified 04/08/25 13:32 out sertraline (From Zoloft) Allergy sexual Verified 04/08/25 13:32 side effects topiramate (From Topamax) Allergy Unknown Verified 04/08/25 13:32 Family History Father Colon cancer at age 53 Heart disease Myocardial infarction Uncle Colon cancer uncles on paternal side Surgical History Hx of knee surgery History of esophagogastroduodenoscopy (EGD) Hx of drainage of abscess (~04/2023) Hx of appendectomy Hx of tonsillectomy Social History household members: spouse housing: house current occupational status: employed 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
--- NOTE | 2025-04-09 09:43 | PCM.PRE.AN2 ---
ASA Classification* ASA Classification ASA Classification: 3 Assessment & Plan Anesthesia* Anesthesia Assessment Anesthesia Assessment: Discussed sedation and/or anesthesia options, risks, benefits, and alternatives with patient/parents/legal guardian/POA. Questions invited. The patient/parents/legal guardian/POA seems to understand and agrees to proceed with anesthesia plan. Reviewed the physical assessment, medical history, allergy history and patient home medications list prior to surgery/procedure/anesthetic and documented any changes. Performed airway and anesthesia risk assessments. Anesthesia Type Anesthesia Type: MAC History Source History Obtained from:: Patient and Chart Anesthesia Focused Assessment* Temperature: 98.4 F Pulse Rate: 88 Blood Pressure: 128/91 Respiratory Rate: 16 Pulse Ox: 99 Oxygen Delivery Method: Room Air Airway Assessment Mouth opens: >3 cm Mallampati Score: IV Teeth Condition: Caps/Crowns (Patient has a crown. It is tight. Rest of the teeth are tight.) Neck Range of motion (ROM): Full ROM Labs Anesthesia Preop lab: CBC WBC 7.6 K/mm3 (4.4-11.0) 03/27/25 16:50 03/27/25 RBC 4.06 M/mm3 (4.6-6.2) L 03/27/25 16:50 03/27/25 Hgb 10.3 g/dL (13.0-16.5) L 03/27/25 16:50 03/27/25 Hct 32.3 % (40-54) L 03/27/25 16:50 03/27/25 Plt Count 387 K/mm3 (150-450) 03/27/25 16:50 03/27/25 CHEMISTRY Potassium 3.6 mmol/L (3.3-5.1) 03/27/25 16:50 03/27/25 Sodium 135 mmol/L (133-145) 03/27/25 16:50 03/27/25 Magnesium 2.2 mg/dL (1.5-2.2) 03/17/25 04:09 03/17/25 Phosphorus 3.9 mg/dL (2.7-4.5) 03/17/25 04:09 03/17/25 BUN 9 mg/dL (4-19) 03/27/25 16:50 03/27/25 Creatinine 0.76 mg/dL (0.70-1.20) 03/27/25 16:50 03/27/25 Glucose 150 mg/dL (70-99) H 03/27/25 16:50 03/27/25 POC Glucose 203 mg/dL (74-106) H 04/09/25 08:55 04/09/25 COAG PT 12.8 SECONDS (11.7-14.9) 10/22/18 05:05 10/22/18 Pre-Assessment Diagnosis/Proposed Procedure Planned Operative Procedure(s): IJ PORT PLACEMENT, right possible left Anesthesia History 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 When Was Last Pacemaker Check QUESTION #4 FULL TEXT: You/Your Family Experience fever (hyperthermia) with Anesthesia Last Oral Intake Last Oral intake: Last Oral Intake NPO since 23:00 04/09/25 08:56 Meds taken in AM with sips of No 04/09/25 08:56 water? 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 - financial service rep Female No 04/08/25 09:38 HX of Motion Sickness Yes 04/08/25 09:38 HX of N/V After Surgery Yes 04/08/25 09:38 Non-Smoker Yes 04/08/25 09:38 Duration of Surgery greater No 04/08/25 09:38 than 60 minutes Number of Risk Factors 3 04/08/25 09:38 PONV Score Moderate Risk 04/08/25 09:38 Height & Weight Height & Weight: Anesthesia: Height & Weight Height 6 ft 2.02 in 04/09/25 08:56 Weight: 118.6 kg 04/09/25 08:56 Body Mass Index (BMI) 33.5 04/09/25 08:56 Respiratory Assessment Respiratory Assessment - financial service rep: Respiratory Tract Infection Hx - financial service rep Hx Respiratory Tract Infection No 04/08/25 09:38 STOP Sleep Apnea STOP Sleep Apnea - financial service rep: STOP Sleep Apnea - financial service rep Hx Hypertension No 04/08/25 09:38 Hx Sleep Apnea Yes: NO MACHINE USED 04/08/25 09:38 CPAP No 04/08/25 09:38 BIPAP No 04/08/25 09:38 Do you snore loudly (louder than talking or can be heard Do you often feel tired/ fatigued/ sleepy during daytime? Has anyone observed you stop breathing during sleep? STOP Results Positive 04/08/25 09:38 QUESTION #5 FULL TEXT : Do you snore loudly (louder than talking or can be heard through closed doors)? 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 Specify any problems Hx of Preganancy in last 3 N/A 04/08/25 09:38 Months Nurse Filling Out Transfusion VCHRISTIN 04/08/25 09:38 & Questions: Date: 04/08/25 04/08/25 09:38 Time: 09:40 04/08/25 09:38 Patient unable to answer at this time (ie. confused, unrespo /Reproduction History /Reproductive History - financial service rep: /Reproductive Hx- financial service rep Hx Now No 04/08/25 09:38 Gestational Age (in weeks): EDC: Hx Hx Para Hx Section SAB No 04/08/25 09:38 Active Medications Active Medications: Current Medications Generic Name Dose Route Start Last Admin Trade Name Freq PRN Reason Stop Dose Admin Lactated Ringer's 1,000 mls @ 15 mls/hr 04/09/25 09:00 04/09/25 09:04 IV 15 mls/hr .Q48H SIENA Administration [facility] Medical History Wears glasses Depression Anxiety Alcohol use Diabetes Fatty liver Anemia High cholesterol Injury of head and neck History of ulceration Gastric reflux Non-smoker Sleep apnea History of echocardiogram History of stress test Lung nodule 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 Weight loss Symptomatic anemia Carcinomatosis Gastric mass Anemia History of rectal abscess Multiple thyroid nodules Restrictive airway disease Abnormal chest CT Pneumonia Acute respiratory failure Shortness of breath Community acquired pneumonia Chronic headache Acute respiratory failure with hypoxia GERD (gastroesophageal reflux disease) Anxiety and depression Diabetes mellitus, type II Obesity (BMI 30-39.9) HLD (hyperlipidemia) MIKE (obstructive sleep apnea) Home Medications ?Medication ?Instructions ?Recorded ?Last Taken ?Type esomeprazole magnesium 40 mg 40 mg PO QHS gerd 10/10/17 04/08/25 History capsule,delayed release fenofibrate 50 mg capsule 54 mg PO DAILY cholesterol 10/10/17 04/08/25 History multivitamin 1 ea PO DAILY supplement 10/10/17 04/08/25 History metformin 500 mg tablet 1,000 mg PO BID diabetes 03/22/18 04/08/25 History doxepin 10 mg capsule 10 mg PO QHS insomnia 10/20/18 04/08/25 History olanzapine 2.5 mg tablet 2.5 mg PO QHS insomnia 10/20/18 03/15/25 22:00 History 2.5 mg zonisamide 25 mg capsule 25 mg PO DAILY unknown 10/20/18 04/08/25 History buspirone 15 mg tablet 15 mg PO BID anxiety 04/14/23 04/08/25 History duloxetine 60 mg capsule,delayed 60 mg PO DAILY depression 04/14/23 04/08/25 History release atorvastatin 80 mg tablet 80 mg PO DAILY hypercholestremia 03/16/25 Unknown History dexmethylphenidate 20 mg 20 mg PO DAILY 03/16/25 04/08/25 History capsule,extended release [id number] ferrous sulfate 325 mg (65 mg 325 mg PO BID anemia 03/16/25 Unknown History iron) tablet ondansetron HCl 8 mg tablet 8 mg PO Q6H PRN PRN nausea and 03/21/25 04/08/25 Rx vomiting #40 tabs metoclopramide HCl 10 mg tablet 5 mg PO TID 04/08/25 04/08/25 History (Reglan) Allergy/AdvReac Type Severity Reaction Status Date / Time citalopram Allergy Unknown Unknown Verified 04/08/25 13:32 venlafaxine Allergy Unknown Unknown Verified 04/08/25 13:32 metoclopramide (From Reglan) Allergy weirds me Verified 04/08/25 13:32 out sertraline (From Zoloft) Allergy sexual Verified 04/08/25 13:32 side effects topiramate (From Topamax) Allergy Unknown Verified 04/08/25 13:32 Family History Father Colon cancer at age 53 Heart disease Myocardial infarction Uncle Colon cancer uncles on paternal side Surgical History Hx of knee surgery History of esophagogastroduodenoscopy (EGD) Hx of drainage of abscess (~04/2023) Hx of appendectomy Hx of tonsillectomy Social History household members: spouse housing: house current occupational status: employed 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
[2025-04-09] MEDS: Lidocaine 1% /Epi 1:100 (50ml) 50 ML VIAL (10:40)
--- NOTE | 2025-04-09 10:53 | RAD_ITS ---
PROCEDURE: CHEST 1 VIEW (PORTABLE) 04/09/2025 REASON FOR EXAM: PORT TECHNIQUE: Frontal view of the chest. COMPARISON: None FINDINGS: Hardware: EKG leads overlie the chest. Satisfactory appearance of a right subclavian port Heart: The heart size is normal. Lungs: Lungs are underexpanded without a superimposed acute pulmonary process, no pneumothorax. Bones: Degenerative changes are identified within the thoracic spine. Other: RAD/Chest 1 View (Portable) IMPRESSION: Satisfactory positioning of a right subclavian port, no complications No acute pulmonary process Reading Location: [id number]
--- NOTE | 2025-04-09 10:53 | RAD_ITS ---
PROCEDURE: CHEST 1 VIEW (PORTABLE) 04/09/2025 REASON FOR EXAM: PORT TECHNIQUE: Frontal view of the chest. COMPARISON: None FINDINGS: Hardware: EKG leads overlie the chest. Satisfactory appearance of a right subclavian port Heart: The heart size is normal. Lungs: Lungs are underexpanded without a superimposed acute pulmonary process, no pneumothorax. Bones: Degenerative changes are identified within the thoracic spine. Other: RAD/Chest 1 View (Portable) IMPRESSION: Satisfactory positioning of a right subclavian port, no complications No acute pulmonary process Reading Location: [id number]
--- NOTE | 2025-04-09 10:53 | PCM.OPRPT ---
Operative Report (Standard) Operative Information Date of Procedure: 04/09/25 Pre-Operative Diagnosis: Z45.2, gastric cancer Post-Operative Diagnosis: Same Surgery/Procedure Performed: Placement of right IJ Port-A-Cath Use of ultrasound Use of fluoroscopy spring encaser: No Type of Anesthesia: Local MAC RN Documented Start/Stop Times: Operation Date: 04/09/25 10:15 Case Time Into Pre-Op 04/09/25 08:46 Anesthesia Start 04/09/25 09:14 Into Room 04/09/25 09:14 Procedure Start 04/09/25 09:22 Out of Pre-Op 04/09/25 10:09 Procedure End 04/09/25 10:49 Anesthesia End 04/09/25 10:55 Out of Room 04/09/25 10:55 Into Recovery 04/09/25 11:01 Into Phase II Recovery 04/09/25 11:27 Out of Recovery 04/09/25 11:27 Procedure Start Time: 09:22 Procedure Stop Time: 10:49 Select all DRAINS/GRAFTS/IMPLANTS that apply: Implanted device Implanted device details: [employer] PowerPort isp M.R.I. 6Fr Lot R EJ [id number] ref [id number] Special Medications: Ancef 3 g IV x 1 Estimated Blood Loss: 5 cc Specimen collected: No Description of surgery: After informed consent was given, the patient was brought to the operating room and placed in the supine position. Appropriate time out protocol was followed. Patient was then given IV conscious sedation for anesthesia. The patient's right upper chest and neck were then prepped with a surgical skin preparation and sterile surgical drapes were placed. After proper landmarks were ascertained, the skin at the upper right chest area was then infiltrated with 1:1 mixture of 1% lidocaine with epinephrine and 0.5% marcaine. A needle trocar was then inserted into the right internal jugular vein with ultrasound guidance-multiple vessels were viewed with u/s and the right IJ was chosen-- and there was good aspiration of venous blood. A wire was then threaded into the needle trocar and this was visualized under fluoroscopy to ensure that the wire was in the superior vena cava. Once this was done, then the needle trocar was removed. A small skin tabitha was made with an 11 blade knife at the wire entrance site. The dilator with the introducer sheath attached was then placed over the wire into the right internal jugular vein via the Seldinger technique and this was visualized under fluoroscopy. The dilator and sheath were in proper position as visualized by fluoroscopy. A subcutaneous pocket was then created caudad to the catheter insertion site. A transverse skin incision was made after the skin and subcutaneous tissues were infiltrated with local anesthetic. Blunt dissection was then used to create a space large enough for placement of the subcutaneous port. The catheter was then tunneled into the subcutaneous pocket. The wire and dilator were then removed. The catheter was then threaded into the introducer sheath and was positioned with its tip at the junction of the superior vena cava and the right atrium as visualized under fluoroscopy. The excess catheter was transected. The catheter was then attached to the subcutaneous port using manufacturers guidelines. The catheter was flushed with a heparin saline mixture prior to placement. Hemostasis was carefully controlled with electrocautery. The port was sutured to the subcutaneous fascia using 2-0 Vicryl suture at two sites. The port was then placed in the subcutaneous pocket. The incision were reapproximated with interrupted subdermal 3-0 vicryl sutures. The skin was reapproximated with 3-0 nylon suture in a interrupted fashion. Steristrips were used for reinforcement of the skin closure at IJ insertion site and a sterile opsite dressings were applied. The patient tolerated the procedure well. Implants Used: Surgical Findings: See operative report Complications Complications: No
--- NOTE | 2025-04-09 10:56 | EX.PCM.DISCH ---
Discharge Instructions Procedure Port-A-Cath Diet Discharge Diet: Light diet - advance as tolerated Activity May shower in (days): 5 (Keep port site clean and dry x5 days. Neck incision okay to get wet after 1 day. Okay to lower shower and upper sponge bath. OR okay to taper off port site with a Ziploc bag to shower) Lifting Restrictions: No lifting > 15 pounds for 3 days with the arm on the side of the port Dressing / Incision Call your doctor if your incision/area has: Continuous Slow Oozing, Sudden Increased Bleeding, Increased Pain/ Swelling, Increased Redness, Foul Smelling Discharge and Swelling at the incision site Call your doctor if you observe: Fever of 101 or Higher Change Dressing in: 2 days (2-3 days- port site; ok to remove neck opsite in 1 day) Follow Up Care Please Follow Up With: Maranda Hansen MD When: In 10 days for permanent suture removal?call office for appointment Test Results: Test results from this visit will be discussed in further detail at your follow-up appointment, if applicable. Discharge Plan Admission Attending Provider: Maranda Hansen Primary Care Provider: Humberto Dos Santos Instructions Print Language: Indonesian Discharge Orders/Prescriptions Prescriptions: New oxycodone 5 mg capsule 5 mg PO Q6H PRN (Reason: pain) 3 Days Qty: 5 0RF Continued multivitamin 1 EACH tablet 1 ea PO DAILY esomeprazole magnesium 40 MG capsule 40 mg PO QHS fenofibrate 50 MG capsule 54 mg PO DAILY metformin 500 mg tablet 1,000 mg PO BID doxepin 10 MG capsule 10 mg PO QHS olanzapine 2.5 MG tablet 2.5 mg PO QHS zonisamide 25 MG capsule 25 mg PO DAILY buspirone 15 mg tablet 15 mg PO BID Patient Comments: TAKE 1 TABLET BY MOUTH TWICE A DAY duloxetine 60 mg capsule,delayed release(DR/EC) 60 mg PO DAILY Patient Comments: TAKE 1 CAPSULE BY MOUTH ONCE DAILY atorvastatin 80 mg tablet 80 mg PO DAILY dexmethylphenidate 20 mg capsule,ER biphasic 50-50 20 mg PO DAILY ferrous sulfate 325 mg (65 mg iron) tablet 325 mg PO BID ondansetron HCl 8 mg tablet 8 mg PO Q6H PRN PRN (Reason: nausea and vomiting) Qty: 40 0RF metoclopramide HCl [Reglan] 10 mg tablet 5 mg PO TID Referrals / Follow Up: Humberto Dos Santos MD [Primary Care Provider] - Disposition Disposition (needs filled in before D/C Order can be placed): Home, Self Care
--- NOTE | 2025-04-09 11:01 | PCM.POST.ANE ---
Anesthesia: Postop Eval I Current Vital Signs Temperature: 98.4 F Pulse Rate: 83 Blood Pressure: 120/80 Respiratory Rate: 16 Pulse Ox: 91 Oxygen Delivery Method: Room Air Assessment Airway patent: Yes Spontaneous unlabored respirations: Yes Mental status: Awake nausea: No Vomiting: No Anesthesia Complication: No Fluid Hydration Crystalloid volume administer (ml): 200 Total IV fluid infused: 200 Progress Note Anesthesia document: Postop Eval 1 completed: Yes
--- NOTE | 2025-04-09 16:47 | POSTOPAN2_ITS ---
Anesthesia Postop Eval I Sum Postop Eval Completion status Anesthesia document: Postop Eval 1 completed: Yes Anesthesia Postop Eval I Summary Anesthesia Postop Eval I Summary: Anesthesia Postop Eval I: Assessment Summary Airway patent Yes 04/09/25 11:03 TALENT ACQUISITION ADMINISTRATOR.JDEF Spontaneous unlabored Yes 04/09/25 11:03 TALENT ACQUISITION ADMINISTRATOR.JDEF respirations Mental status Awake 04/09/25 11:03 TALENT ACQUISITION ADMINISTRATOR.JDEF nausea No 04/09/25 11:03 TALENT ACQUISITION ADMINISTRATOR.JDEF Vomiting No 04/09/25 11:03 TALENT ACQUISITION ADMINISTRATOR.JDEF Anesthesia Postop Eval I: Fluid Summary Crystalloid volume administer 200 04/09/25 11:03 TALENT ACQUISITION ADMINISTRATOR.JDEF (ml) Colloids volume administered ( ml) Blood Product volume administered (ml) Total IV fluid infused 200 04/09/25 11:03 TALENT ACQUISITION ADMINISTRATOR.JDEF Anesthesia Postop Eval I: Summary Notes Anesthesia Complication No 04/09/25 11:03 TALENT ACQUISITION ADMINISTRATOR.JDEF Anesthesia Complication Comment: Post-operative progress note Anesthesia: Postop Eval II Evaluation Mental status: Awake and Calm Pain Level: 1 nausea: No Vomiting: No Complications Anesthesia Complication: No
--- NOTE | 2025-04-09 16:47 | POSTOPAN2_ITS ---
Anesthesia Postop Eval I Sum Postop Eval Completion status Anesthesia document: Postop Eval 1 completed: Yes Anesthesia Postop Eval I Summary Anesthesia Postop Eval I Summary: Anesthesia Postop Eval I: Assessment Summary Airway patent Yes 04/09/25 11:03 FIELD PROJECT MANAGER.JDEF Spontaneous unlabored Yes 04/09/25 11:03 FIELD PROJECT MANAGER.JDEF respirations Mental status Awake 04/09/25 11:03 FIELD PROJECT MANAGER.JDEF nausea No 04/09/25 11:03 FIELD PROJECT MANAGER.JDEF Vomiting No 04/09/25 11:03 FIELD PROJECT MANAGER.JDEF Anesthesia Postop Eval I: Fluid Summary Crystalloid volume administer 200 04/09/25 11:03 FIELD PROJECT MANAGER.JDEF (ml) Colloids volume administered ( ml) Blood Product volume administered (ml) Total IV fluid infused 200 04/09/25 11:03 FIELD PROJECT MANAGER.JDEF Anesthesia Postop Eval I: Summary Notes Anesthesia Complication No 04/09/25 11:03 FIELD PROJECT MANAGER.JDEF Anesthesia Complication Comment: Post-operative progress note Anesthesia: Postop Eval II Evaluation Mental status: Awake and Calm Pain Level: 1 nausea: No Vomiting: No Complications Anesthesia Complication: No
--- NOTE | 2025-04-09 16:47 | PCM.POSTANE2 ---
Anesthesia Postop Eval I Sum Postop Eval Completion status Anesthesia document: Postop Eval 1 completed: Yes Anesthesia Postop Eval I Summary Anesthesia Postop Eval I Summary: Anesthesia Postop Eval I: Assessment Summary Airway patent Yes 04/09/25 11:03 CONTROL SYSTEMS DRAFTING OFFICER.JDEF Spontaneous unlabored Yes 04/09/25 11:03 CONTROL SYSTEMS DRAFTING OFFICER.JDEF respirations Mental status Awake 04/09/25 11:03 CONTROL SYSTEMS DRAFTING OFFICER.JDEF nausea No 04/09/25 11:03 CONTROL SYSTEMS DRAFTING OFFICER.JDEF Vomiting No 04/09/25 11:03 CONTROL SYSTEMS DRAFTING OFFICER.JDEF Anesthesia Postop Eval I: Fluid Summary Crystalloid volume administer 200 04/09/25 11:03 CONTROL SYSTEMS DRAFTING OFFICER.JDEF (ml) Colloids volume administered ( ml) Blood Product volume administered (ml) Total IV fluid infused 200 04/09/25 11:03 CONTROL SYSTEMS DRAFTING OFFICER.JDEF Anesthesia Postop Eval I: Summary Notes Anesthesia Complication No 04/09/25 11:03 CONTROL SYSTEMS DRAFTING OFFICER.JDEF Anesthesia Complication Comment: Post-operative progress note Anesthesia: Postop Eval II Evaluation Mental status: Awake and Calm Pain Level: 1 nausea: No Vomiting: No Complications Anesthesia Complication: No
--- NOTE | 2025-04-09 16:47 | PCM.POSTANE2 ---
Anesthesia Postop Eval I Sum Postop Eval Completion status Anesthesia document: Postop Eval 1 completed: Yes Anesthesia Postop Eval I Summary Anesthesia Postop Eval I Summary: Anesthesia Postop Eval I: Assessment Summary Airway patent Yes 04/09/25 11:03 SALES PROCESS MANAGER.JDEF Spontaneous unlabored Yes 04/09/25 11:03 SALES PROCESS MANAGER.JDEF respirations Mental status Awake 04/09/25 11:03 SALES PROCESS MANAGER.JDEF nausea No 04/09/25 11:03 SALES PROCESS MANAGER.JDEF Vomiting No 04/09/25 11:03 SALES PROCESS MANAGER.JDEF Anesthesia Postop Eval I: Fluid Summary Crystalloid volume administer 200 04/09/25 11:03 SALES PROCESS MANAGER.JDEF (ml) Colloids volume administered ( ml) Blood Product volume administered (ml) Total IV fluid infused 200 04/09/25 11:03 SALES PROCESS MANAGER.JDEF Anesthesia Postop Eval I: Summary Notes Anesthesia Complication No 04/09/25 11:03 SALES PROCESS MANAGER.JDEF Anesthesia Complication Comment: Post-operative progress note Anesthesia: Postop Eval II Evaluation Mental status: Awake and Calm Pain Level: 1 nausea: No Vomiting: No Complications Anesthesia Complication: No
== END 2025-04-09 12:10 | disposition home or self-care (01) ==
LOC: SDC 08:35 → AC 08:37
PROVIDERS: PCP Family Medicine; Referring Provider Surgery; Visit Provider Surgery
PROC: (CPT 36561; principal; 2025-04-09 10:00)
DX: Z45.2 Encounter for adjustment and management of vascular access device (principal); C78.6 Secondary malignant neoplasm of retroperitoneum and peritoneum; C79.51 Secondary malignant neoplasm of bone; C16.3 Malignant neoplasm of pyloric antrum; E11.9 Type 2 diabetes mellitus without complications; Z79.4 Long term (current) use of insulin; G47.33 Obstructive sleep apnea (adult) (pediatric); E78.5 Hyperlipidemia, unspecified; K21.9 Gastro-esophageal reflux disease without esophagitis; F32.A Depression, unspecified; F41.9 Anxiety disorder, unspecified; Z79.84 Long term (current) use of oral hypoglycemic drugs; Z79.899 Other long term (current) drug therapy; Z80.0 Family history of malignant neoplasm of digestive organs
CPT/HCPCS: 36561; 00532; 71045; 77001; 82962